=== PATIENT | female | born 1990 | race Caucasian/White ===

== ENCOUNTER 2022-05-17 08:18 | Outpatient (CLI) | payer MEDICAID, SELFPAY ==
[2022-05-18 19:18] LABS: Rapid Plasma Reagin (RPR) Non Reactive (Non Reactive)
== END 2022-05-17 08:19 | disposition home or self-care (01) ==
LOC: NFLDREF 08:20
PROVIDERS: Visit Provider Obstetrics & Gynecology
DX: O09.292 Supervision of pregnancy with other poor reproductive or obstetric history, second trimester (principal); Z11.3 Encounter for screening for infections with a predominantly sexual mode of transmission
CPT/HCPCS: 86592

== ENCOUNTER 2022-05-17 08:39 | Outpatient (CLI) | payer MEDICAID, SELFPAY ==
--- NOTE | 2022-05-17 08:45 | CRLHL7_ITS ---
For Patients: As a result of the Century Cures Act, medical imaging exams and procedure reports are released immediately into your electronic medical record. You may view this report before your referring provider. If you have questions, please contact your health care provider. INDICATION: Third trimester growth check. Maternal gestational diabetes. TECHNIQUE: Ultrasound OB pelvis transabdominal. Real-time norton-scale imaging of the fetus was performed as well as color Doppler and spectral Doppler analysis of the umbilical artery. COMPARISON: None. FINDINGS: Sonographic imaging demonstrates a single living intrauterine gestation. Fetus demonstrates a regular cardiac rate of 150 beats per minute. Fetus has a breech orientation. Amniotic fluid volume appears normal with the deepest pocket of 4 cm. Placenta is posterior. The following biometric measurements were obtained: Biparietal diameter: 28 weeks 3 days. Head circumference: 28 weeks 5 days. Abdominal circumference: 28 weeks 3 days. Femur length: 27 weeks 4 days. The composite ultrasound gestational age is calculated at 28 weeks 2 days with an estimated sonographic due date of August 07, 2022. The weight is estimated at 1188 grams, the 74th percentile. IMPRESSION.: Viable intrauterine . No abnormalities seen. Fetus is measuring at the 74th percentile by weight. Dictated by Jack Eubanks MD @ 05/23/2022 10:09:57 AM (Electronically Signed)
== END 2022-05-17 08:40 | disposition home or self-care (01) ==
LOC: US 08:40
PROVIDERS: Visit Provider Obstetrics & Gynecology
DX: O13.3 Gestational [pregnancy-induced] hypertension without significant proteinuria, third trimester (principal); Z3A.28 28 weeks gestation of pregnancy
CPT/HCPCS: 76816

== ENCOUNTER 2022-05-24 09:54 | Outpatient (CLI) | payer MEDICAID, SELFPAY ==
[2022-05-24 08:14] LABS: Glucose Fasting Check 100 mg/dl (60-115)
[2022-05-24 13:05] LABS: Glucose 1 Hour Gest 202 mg/dl (70-180)
[2022-05-24 13:17] LABS: Glucose GTT-Gestational 3 Hr 125 mg/dl (70-140)
--- OUTSIDE RECORDS SUMMARY | 2022-05-31 00:58 | XMS_ITS | Encounter Summary ---
:1990 Author Organization [facility] Address [address] [place] [address] Care Team Providers Name Role Phone Ben Arce M.D. Primary Care Provider Encounter Details Date Type Department Care Team Description 03/31/2022 Hospital Encounter Department of Cheikh Gautam Laboratory Medicine Minoo Garcia ([facility]) in [place], [place] [address] [place] [id number] Social History Tobacco Use Types Packs/Day Years Used Date Smoking Tobacco: Never Smokeless Tobacco: Never Alcohol Use Standard Drinks/Week Comments No 0 (1 standard drink = 0.6 oz pure alcoho l) Alcohol Habits Answer Date Recorded How often do you have a drink containing alcohol? Never 11/20/2021 How many drinks containing alcohol do you have on a typical Not asked day when you are drinking? How often do you have six or more drinks on one occasion? No t asked Comment: Not asked Social Isolation Answer Date Recorded In a typical week, how many times do you More than three annie es a week 11/20/2021 talk on the phone with family, friends, or neighbors? How often do you get together with friends Twice a week 11/20/2021 or relatives? How often do you attend islam or Never 2021 rastafari services? Do you belong to any clubs or No 11/20/2021 organizations such as islam groups, unions, fraternal or athletic groups, or school groups? How often do you attend meetings of the Never 11/20/2021 clubs or organizations you belong to? Are you now , , , Never 11/20/2021 , never or living with a partner? Physical Activity Answer Date Recorded On average, how many days per week do you engage in moderate to 5 days 11/20/2021 strenuous exercise (like walking fast, running, jogging, dancing, swimming, biking, or other activities that cause a light or heavy sweat)? On average, how many minutes do you engage in exercise at th is 60 min 11/20/2021 level? Stress Answer Date Recorded Do you feel stress - tense, restless, nervous, or To some ex tent 11/20/2021 anxious, or unable to sleep at night because your mind is troubled all the time - these days? Financial Resource Strain Answer Date Recorded How hard is it for you to pay for the very basics like Not julian dai hard 11/20/2021 food, housing, medical care, and heating? Intimate Partner Violence Answer Date Recorded Within the last year, have you been afraid of your partner o r No 11/20/2021 ex-partner? Within the last year, have you been humiliated or emotionall y No 11/20/2021 abused in other ways by your partner or ex-partner? Within the last year, have you been kicked, hit, slapped, or No 11/20/2021 otherwise physically hurt by your partner or ex-partner? Within the last year, have you been raped or forced to have any No 11/20/2021 kind of sexual activity by your partner or ex-partner? Housing Stability Answer Date Recorded In the last 12 months, was there a time when you were Patien t refused 11/20/2021 not able to pay the mortgage or rent on time? In the last 12 months, how many places have you lived? 1 11/20/2021 In the last 12 months, was there a time when you did No 11/20/[address]21 [address] to sleep or slept in a longterm (including now)? Education Answer Date Recorded What is the highest level of school you have completed or 12 th grade 05/17/2021 the highest degree you have received? 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 aspirin 81 mg chewable Chew 81 mg daily. 0 tablet breast pump device 1 each Cyclic PN - 1 each 0 2 03/01/2023 see admin instructions. famotidine (PEPCID) 40 mg Take 1 tablet (40 30 tablet 3 08/2022 tablet mg total) by mouth 2 (two) times a day. Take 1 tablet by 90 tablet 3 12/01/2021 vit27,calcium/iron/FA mouth daily. (multivitamin/mineral-pren atal) tablet calcium carbonate-vitamin Take 1 tablet by 0 D3 625 mg (250 mg mouth daily with calcium)-3.125 mcg (125 breakfast. Unit) per tablet documented as of this encounter Plan of Treatment Not on filedocumented as of this encounter Procedures Procedure Name Priority Date/Time Associated Comments Diagnosis PROTEIN/CREATININE Routine 03/31/2022 5:34 High Risk Result s for this RATIO, RANDOM, URINE PM CDT ([facility]) proc edure are in the results section. ALANINE AMINOTRANSFERASE Routine 03/31/2022 5:31 High Risk Results for this (ALT), S/P PM CDT (HCC) procedure ar e in the results section. ASPARTATE Routine 03/31/2022 5:31 High Risk Results for this AMINOTRANSFERASE (AST), PM CDT (HCC) p rocedure are in S/P the results section. CREATININE WITH EGFR, Routine 03/31/2022 5:31 High Risk Res ults for this S/P PM CDT (HCC) procedure ar e in the results section. documented in this encounter Results Protein/Creatinine Ratio, Random, Urine (03/31/2022 5:34 PM CDT) P athologist Signature Protein, Total, 14 mg/dL 03/31/2022 NPRG Random, U 6:01 PM CDT Creatinine, 216 16 - 326 03/31/2022 NPRG Random, U mg/dL 6:01 PM CDT Protein/Creatin 0.06 <0.18 mg/mg 03/31/2022 NPRG ine Ratio 6:01 PM CDT Specimen Anatomical Collection Method Collection Time Receive d Time (Source) Location / / Volume Laterality Urine (Urine, 03/31/2022 5:34 PM 03/31/20 5:34 Midstream) CDT PM CDT Cheikh Gautam M.D. LAB URINE ORDERABLES Performing Organization Address City/[facility]/ZIP Code Phon e Number [place] [address] [place], [place] [address] [facility] [place] [address] ALT (Alanine Aminotransferase) (03/31/2022 5:31 PM CDT) Patholo gist Method Time Signature Alanine 10 7 - 45 03/31/2022 NPRG Aminotransferase U/L 5:59 PM CDT (ALT), P Specimen Anatomical Collection Method Collection Time Receive d Time (Source) Location / / Volume Laterality Blood (Blood, 03/31/2022 5:31 PM 03/31/20 22 5:34 Venous) CDT PM CDT Cheikh Gautam M.D. LAB BLOOD ADD-ON Performing Organization Address City/[facility]/ZIP Code Phon e Number [place] [address] [place], [place] [address] [facility] [place] [address] AST (Aspartate Aminotransferase) (03/31/2022 5:31 PM CDT) [facility] Method Time Signature Aspartate 13 8 - 43 03/31/2022 NPRG Aminotransferase U/L 5:59 PM CDT (AST), P Specimen Anatomical Collection Method Collection Time Receive d Time (Source) Location / / Volume Laterality Blood (Blood, 03/31/2022 5:31 PM 03/31/20 22 5:34 Venous) CDT PM CDT Cheikh Gautam M.D. LAB BLOOD ADD-ON Performing Organization Address City/[facility]/ZIP Code Phon e Number [address] [address] [address] [facility] [place] [place] [address] (ABNORMAL) Creatinine with Estimated GFR (03/31/2022 5:31 PM CDT) P athologist Signature Creatinine, P 0.58 (L) 0.59 - 03/31/2022 NPRG 1.04 mg/dL 5:59 PM CDT eGFR-Black/Afr >90 >=60 03/31/2022 NPRG ican Slovenian mL/min/BSA 5:59 PM CDT Comment: ----ADDITIONAL INFORMATION---- Estimated GFR calculated using the 2009 CKD_EPI creatinine equation. eGFR Non-Black/ >90 >=60 mL/min/BSA 03/31/2022 5:59 PM CDT NPRG Comment: ----ADDITIONAL INFORMATION---- Estimated GFR calculated using the 2009 CKD_EPI creatinine equation. Specimen Anatomical Collection Method Collection Time Receive d Time (Source) Location / / Volume Laterality Blood (Blood, 03/31/2022 5:31 PM 03/31/20 5:34 Venous) CDT PM CDT Cheikh Gautam M.D. LAB BLOOD ADD-ON Performing Organization Address City/State/ZIP Code Phon e Number [facility] [address] [place], [place] [address] [facility] [place] [address] [facility] [address] [place] documented in this encounter Visit Diagnoses Diagnosis High Risk (HCC) documented in this encounter Additional Health Concerns Assessment Noted Time PHQ-9 Depression Total Score: 4 12/20/2021 10:52 AM CS T documented as of this encounter Care Teams Resource Program Teacher Relationship Specialty Start Date End Date Ben Arce M.D. PCP - General Family Medicine 01/13/[address] [place] [phone] documented as of this encounter
--- OUTSIDE RECORDS SUMMARY | 2022-05-31 00:58 | XMS_ITS | Encounter Summary ---
:1990 Author Organization [facility] Address [address] [place] [address] Care Team Providers Name Role Phone Ben Arce M.D. Primary Care Provider Reason for Referral Outpatient (Routine) - Authorized Specialty Diagnoses / Procedures Referred By Contact Refer red To Contact Diagnoses Pain Back Pain Neck Ben Arce M.D. External, Referring [address] [place] [address] Referral ID Status Reason Start Expiration Visits Visits Date Date Requested Authorized [id number] Authorized Patient 03/01/2022 03/01/2023 1 1 Preference Reason for Visit Reason Comments Outside Order Insurance Referral Encounter Details Date Type Department Care Team Description 03/01/2022 Clinical Communication Department of Ben Arce, Outs [facility] Order Family Medicine in [place] (Insurance Referral) [place] [address] [place] [address] [facility] [phone] [phone] Social History Tobacco Use Types Packs/Day Years [...] do you attend islam or Never 2021 synagogue services? Do you belong to any clubs or No 11/20/2021 organizations such as islam groups, unions, fraBALALIKEA or athletic groups, or school groups? How [...] pay for the very basics like Not v dai hard 11/20/2021 food, housing, medical care, [...] place to sleep or slept in a penitentiary (including now)? Education Answer Date Recorded What is the highest level of school you have completed or 12 th grade 05/17/2021 the highest degree you have received? 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 Also faxed [facility] restricted forms for OB care [facility]. Thank you, Jossie Referrals 03/02/22 Lore called from [facility] [phone]. This referral has been processed. 03/03/22sla. Telephone Encounter - Ben Arce M.D. - 03/01/2022 3:07 PM CDT Order signed. Telephone Encounter - Jossie Ramos - 03/01/2022 2:[address] Arce, ORDER/LAB/REFERRAL REQUEST: Name of test/referral/order requested: [facility]. Med [place] i [id number] Reason for request: Back and neck pain Date needed: 02/26/22 Order pended to this encounter, once signed we can submit the Restricted [facility] referral for insurance. Thank you, Jossie Referrals 03/01/22 documented in this encounter Plan of Treatment Not on filedocumented as of this encounter Visit Diagnoses Diagnosis Pain Back - Primary Pain Neck documented in this encounter Additional Health Concerns Assessment Noted Time PHQ-9 Depression Total Score: 4 12/20/2021 10:52 AM CS T documented as of this encounter Care Teams Frame Stripper And Crusher Relationship Specialty Start Date End Date Ben Arce M.D. PCP - General Family Medicine 01/13/[address] [place] [phone] documented as of this encounter
--- OUTSIDE RECORDS SUMMARY | 2022-05-31 00:58 | XMS_ITS | Encounter Summary ---
:1990 Author Organization [facility] Address [address] [place] [address] Care Team Providers Name Role Phone Ben Arce M.D. Primary Care Provider Reason for Visit Reason Comments Decreased Movement Pt noticed decrease in movement starting on 04/16/22 @ 1430 Vaginal Bleeding Pt expressed one episode of vaginal bleeding on 04/17/22 @ 1730, which she described as bright red about the size of a quarter. Auth/Cert Specialty Diagnoses / Procedures Referred By Contact Refer red To Contact Diagnoses Procedures Referral ID Status Reason Start Date Expiration Date Visits Requ ested Visits Authorized [id number] 1 1 Encounter Details Date Type Department Care Team Description 04/17/2022 Hospital Encounter [facility] Rylie Mcdowell, 23 Weeks Gestation [facility], [place] [id number] [address] [place], [place] [phone] [phone] (Work) [phone] Social History Tobacco Use Types Packs/Day Years [...] or relatives? How often do you attend catholic or Never 2021 sikhism services? Do you belong to any clubs or No 11/20/2021 organizations such as catholic groups, unions, fraternal or athletic groups, or [...] place to sleep or slept in a fpc (including now)? Education Answer Date Recorded What is the highest level of school you have completed or 12 th grade 05/17/2021 the highest degree you have received? 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 - 04/17/2022 8:50 PM CDT Pt is a at 23+0/7 weeks gestation who presented to OB c/o decreased movement, mild cramping, and an episode of vaginal bleeding. The decreased movement was noted to begin yesterday, and the cramping began this afternoon. Pt also verbalized one spot of bright red blood that was a little bigger than the size of a quarter this afternoon, with no further bleeding to follow. FHR was a persistent Category I tracing. No UTC's traced via [place]. RN palpated during one episode ofuterine cramping, as verbalized by the patient, which was not palpable. Pt denied any s/sx of a urinary tract infection. No trauma or significant events preceded the vaginal bleeding, including any recent intercourse. movements were audibly noted by RN on the monitor, in addition to the ptnoting movements during the assessment time. RN reviewed anatomy scan from March 27 to rule out an anterior placenta and low lying/placenta previa. VSS. Dr. Mcdowell called and informed of pt situation. She is comfortable with sending the pt home on the premise that she schedule an appointment with her provider early this week. Pt educated on s/sx that warrant evaluation, and she was reminded that our OB unit is always available for her to utilize should she need it. No further concerns or issues at this time. Pt discharged to home. documented in this encounter Plan of Treatment Not on filedocumented as of this encounter Visit Diagnoses Diagnosis 23 Weeks Gestation (HCC) documented in this encounter Additional Health Concerns Assessment Noted Time PHQ-9 Depression Total Score: 4 12/20/2021 10:52 AM CS T documented as of this encounter Care Teams Antique Jewelry Repairer Relationship Specialty Start Date End Date Ben Arce M.D. PCP - General Family Medicine 01/13/[address] [place] [phone] documented as of this encounter
--- OUTSIDE RECORDS SUMMARY | 2022-05-31 00:58 | XMS_ITS | Clinical Summary ---
:1990 Author Organization [facility] Address [address] [place] [address] Care Team Providers Name Role Phone Ben Arce M.D. Primary Care Provider Source Comments Patient records contain information from all sites at [facility]. For routine questions regarding patient records, call [phone] during business hours, M-F 8:00 AM - 5:00 PM Central Time. Record requests for emergency care only can be directed to [phone] at any time.[facility] Allergies Active Allergy Reactions Severity Noted Date Comments [place] Pollen Itching, Wheezing 04/17/2022 Medications Medication Sig Dispensed Refills Start Date End Date Status acetaminophen (TYLENOL) Take 1,000 mg 0 Active 500 mg tablet by mouth every 6 (six) hours as needed for pain. Take 1 tablet 90 tablet 3 12/01/2021 Activ e vit27,calcium/iron/FA by mouth daily. (multivitamin/mineral-p renatal) tablet calcium Take 1 tablet 0 Active carbonate-vitamin D3 by mouth daily 625 mg (250 mg with breakfast. calcium)-3.125 mcg (125 Unit) per tablet breast pump device 1 each Cyclic 1 each 0 03/01/20222022 Active PN - see admin instructions. famotidine (PEPCID) 40 Take 1 tablet 30 tablet 3 03/01/2022 Active mg tablet (40 mg total) by mouth 2 (two) times a day. aspirin 81 mg chewable Chew 81 mg 0 Active tablet daily. Active Problems Problem Noted Date Encounter For Supervision Of Normal Unspecif ied Trimester 12/20/2021 Overview: 31 y.o. dated by 6w US (not cons istent with approximate LMP). CARLOS 08/14/22. Prepregnancy BMI: 28. History: 1 early miscarriage, 1 induced delivery at 36 weeks due to preeclampsia (GDM that too) New OB Labs: Rh+/RI/other labs WNL/GCCT neg Early DM Screening: A1C ordered due to h x GDM Vaccinations: COVID complete but needs b ooster/Flu declines Manager Ob: Pap NIL w/ neg HPV 11/2021 Aneuploidy screening/Carrier Screening: declines Preeclampsia prevention: aspirin to star t at 12 weeks FAS: Normal, posterior placenta, EFW 92n d%ile 28 week labs: TDAP /Rhogam not indicated GBS Growth Ultrasounds: surveillance: Presentation (36 weeks): Del planning: PPBC: Problems: 1. Hx preeclampsia: on baby aspirin. Bas delia preE labs ordered 2. Hx GDM: Early A1C 5.2 3. Possible macrosomia: EFW 92nd%ile on FAS. Will plan on growth US in third trimester Note on 03/27 she told me she is transferr ing to [place] because it is closer. 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 Supervision Of Normal Pregnanc y Unspecified Trimester (HCC) 04/18/2022 Routine Obstetrics and Rylie Mcdowell 23 Weeks Gestation Gynecology Minoo ([facility]) (Primary Dx) 04/17/2022 Hospital Encounter Labor and Delivery Jeremias, Giya, 23 Weeks Gestation M.D. ([facility]) 03/31/2022 Hospital Encounter Laboratory Medicine Cheikh Gautam High Risk Minoo Garcia ([facility]) 03/27/2022 Routine Obstetrics and Cheikh Gautam High Ri sk ([facility]) (Primary Dx); Gynecology Minoo Garcia Encounter For S upervision Of Normal Unspecified Trimester ([facility]) 03/27/2022 Ancillary Procedure Obstetrics and Cheikh Gautamo unter For Gynecology Minoo Garcia Supervision Of Other Normal Unspecified Trimester ([facility]) 03/01/2022 Routine Obstetrics and Terrence Swenson Examination Test With Positive Result ([facility]) (Primary Dx); Gynecology Minoo Gutierrez Encounter For S upervision Of Normal Unspecified Trimester ([facility]) 03/01/2022 Clinical Communication Family Medicine Ben Arce Ou tside Order Minoo (Insurance Referral) 02/28/2022 Orders Only Obstetrics and Terrence Swenson Gynecology Minoo Gutierrez from Last 3 Months Immunizations Name Administration Dates Next Due DTP 02/03/1992, 08/05/1991, 03/18/1991, 1989, 1989, 1989 DTaP (Infanrix, [employer]) 02/03/1992, 08/05/1991, 03/18/1991 , 1989, 1989, 1989 HepB Pediatric/Adolescent 02/22/2001, 12/07/2000, 10/03/2000 HepB, Unspecified 02/22/2001, 12/07/2000, 10/03/2000 Influenza TIV (IM) 07/10/2012, 09/08/2003 Influenza, Seasonal, Injectable 07/10/2012 Influenza, Unspecified 12/16/2020 (Deferred: Patient Refused - pt states gets sick from flu vaccination), 09/08/2003 MMR 12/07/2000 Polio, Unspecified 02/03/1992, 02/03/1992, 03/18/1991, 03/18/1991, 1989, 1989, 1989, 1989, 1989, 1989 Td (Adult), adsorbed 10/03/2000 Tdap 09/03/2012 Family History Medical History Relation Name Comments Pancreatic cancer Aunt Depression Brother Alcohol abuse Father Heart failure Father Hypertension Father Rashes / Skin problems Maternal Grandfather Skin cancer Maternal Grandfather Diabetes Maternal Grandmother Pancreatic cancer Maternal Grandmother Arthritis Mother Depression Mother Hypertension Mother Rashes / Skin problems Mother Skin cancer Mother Thyroid disease Mother Alcohol abuse Paternal Grandmother Depression Sister 1 Depression Sister 2 Depression Sister 3 Asthma Son Johnnie Learning disabilities Son Johnnie Relation Name Status Comments Aunt Brother Father Maternal Grandfather Maternal Grandmother Mother Paternal Grandmother Sister 1 Sister 2 Sister 3 Son Johnnie Alive Social History Tobacco Use Types Packs/Day Years Used Date Smoking Tobacco: Never Smokeless Tobacco: Never Tobacco Cessation: Counseling Given: Yes Alcohol Use Standard Drinks/Week Comments No 0 [...] or relatives? How often do you attend denominational or Never 2021 nondenominational services? Do you belong to any clubs or No 11/20/2021 organizations such as denominational groups, unions, fraternal or athletic groups, or [...] to pay for the very basics like Nav lala hard 11/20/2021 food, housing, medical care, and [...] place to sleep or slept in a residential (including now)? Education Answer Date Recorded What is the highest level of school you have completed or 12 th grade 05/17/2021 the highest degree you have received? 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 Vital Signs Vital Sign Reading Time Taken Comments Blood Pressure 111/66 04/28/2022 12:25 PM CDT Pulse 87 04/28/2022 12:25 PM CDT Temperature 36.2 ??C (97.2 ??F) 04/28/2022 12:25 PM CDT Respiratory Rate 16 04/28/2022 11:08 AM CDT Oxygen Saturation 95% 04/28/2022 12:25 PM CDT Inhaled Oxygen Concentration - - Weight 72 kg (158 lb 12.8 oz) 04/18/2022 2:27 PM CDT Height 152.4 cm (5') 04/28/2022 10:11 AM CDT Body Mass Index 31.01 04/18/2022 2:27 PM CDT Plan of Treatment Health Maintenance Due Date Last Done Comments Hepatitis C Screening 1990 COVID-19 Vaccine (3 - 11/18/2021 06/18/2021, 05/18/2021 Booster for Pfizer series) Influenza Vaccine (#1) 2022 07/10/2012, 07/10/2012, 09/08/2003, Additional history exists DTaP,Tdap,and Td Vaccines 09/03/2022 09/03/2012, 10/03/2000 , (7 - Td or Tdap) 02/03/1992, Additional history exists Cervical Cancer Screening 11/24/2026 11/24/2021, 11/24/2021 , 09/23/2015 (Performed elsewhere) Hepatitis B Vaccines Completed 02/22/2001, 02/22/2001, 12/07/2000, Additional history exists Depression Screening Completed 12/20/2021 (Annual PHQ-2) Pneumococcal vaccine (0-64 Aged Out No lo nger eligible years) based on patient 's age to complete this topic Medical Devices Implanted Type Area Stamps Or Coins Salesperson Device Shelf Model / Identifier Expiration Serial / Date Lot Gynecologic Gynecologic Left: Other Other Arm Procedures Procedure Name Priority Date/Time Associated Comments Diagnosis URINALYSIS WITH Timed 04/28/2022 9:09 Results f or MICROSCOPIC AM CDT this procedure are in the results section. IFLU A, B, SARS COV-2, Routine 04/28/2022 8:48 Re sults for PCR, RAPID,V AM CDT this procedure are in the results section. PROTEIN/CREATININE Routine 03/31/2022 5:34 High Risk Result s for RATIO, RANDOM, URINE PM CDT (HCC) this procedure are in the results section. ALANINE Routine 03/31/2022 5:31 High Risk Results for AMINOTRANSFERASE PM CDT (HCC) this pro cedure (ALT), S/P are in the results section. ASPARTATE Routine 03/31/2022 5:31 High Risk Results for AMINOTRANSFERASE PM CDT (HCC) this pro cedure (AST), S/P are in the results section. CREATININE WITH EGFR, Routine 03/31/2022 5:31 High Risk Res ults for S/P PM CDT (HCC) this procedu re are in the results section. CHLAMYDIA/GONORRHOEAE Routine 03/27/2022 High Risk Result s for AMPLIFIED RNA 10:42 AM CDT (HCC) this proced ure are in the results section. US OB ANATOMY RAD - Routine 03/27/2022 Encounter For Results for MARTINS (most inpatients 10:28 AM CDT Supervision Of this proc edure and all Other Normal are in the outpatients) results Unspecified section. Trimester (HCC) from Last 3 Months Results (ABNORMAL) Urinalysis with Microscopic: Urine, Midstream (04/28/2022 9:09 AM CDT) [facility] Time Signature Source Urine, Urine, 04/28/2022 NPRG Midstream 11:21 AM CDT Clarity Clear Clear 04/28/2022 NPRG 11:36 AM CDT Color Yellow 04/28/2022 NPRG 11:36 AM CDT Comment: ----REFERENCE VALUE---- Colorless Yellow Ronda Blood Trace (A) Negative 04/28/2022 11:36 AM CDT NPRG Nitrite Negative Negative 04/28/2022 11:36 AM CDT NPRG Leukocyte Esterase Small (A) Negative 04/28/2022 11:36 AM C DT NPRG Protein Negative mg/dL 04/28/2022 11:36 AM CDT NPRG Comment: ----REFERENCE VALUE---- Negative Trace Glucose Negative Negative mg/dL 04/28/2022 11:36 AM CDT N PRG Ketones, QI(U) Trace (A) Negative mg/dL 04/28/2022 11:36 AM CDT NPRG Bilirubin Negative Negative 04/28/2022 11:36 AM CDT NPRG pH 7.0 5.0 - 8.0 04/28/2022 11:36 AM CDT NPRG Specific [place] 1.015 1.001 - 1.035 04/28/2022 11:36 AM CDT NPRG Urobilinogen 0.2 0.2 - 1.0 mg/dL 04/28/2022 11:36 AM C DT NPRG White Blood Cells 4-10 /hpf 04/28/2022 11:36 AM CD T NPRG Comment: ----REFERENCE VALUE---- Males: 0-3 Females: 0-10 Unknown: 0-10 Red Blood Cells Occ-2 0 - 2 /hpf 04/28/2022 11:36 AM CDT NPRG Dysmorphic Red Blood Cells <=25 <=25 % 04/28/2022 11 :36 AM CDT NPRG Squamous Cells 11-20 /hpf 04/28/2022 11:36 AM CDT N PRG Bacteria Present (A) None Seen 04/28/2022 11:36 AM CDT NPRG Specimen Anatomical Collection Method Collection Time Receive d Time (Source) Location / / Volume Laterality Urine (Urine, 04/28/2022 9:09 AM 04/28/20 22 Midstream) CDT 11:21 AM CDT Rylie Mcdowell M.D. LAB URINE ORDERABLES Performing Organization Address City/State/ZIP Code Phon e Number [address] [place] [address] [place] [address] [place] [address] [address] [facility] Influenza A/B, SARS CoV-2, PCR, Rapid, Varies (04/28/2022 8:48 AM CDT) [employer] Method Time Signature Influenza A, Negative Negative 04/28/2022 NPRG PCR, Rapid, V 9:26 AM CDT Influenza B, Negative Negative 04/28/2022 NPRG PCR, Rapid, V 9:26 AM CDT SARS CoV-2, Undetected Undetected 04/28/2022 NPRG PCR, Rapid, V 9:26 AM CDT Comment: ----ADDITIONAL INFORMATION---- This RT-PCR test was performed using the Carissa SARS-CoV-2 and Influenza A/B Reagent assay from [employer] which has received Emergency Use Authori zation(EUA) by the U.S. Food and Drug Administration . Fact sheets for this Emergency Use Autho rization (EUA) assay can be found at the following link s: For Healthcare Providers: https://www.fda.gov/media/633422/downloa d For Patients: https://www.fda.gov/media/582268/downloa d Infl A/B, SARS CoV-2, PCR, Source Swab, Nasopharynx 04/28/2022 9:02 AM CDT NPRG Specimen Anatomical Collection Method Collection Time Receive d Time (Source) Location / / Volume Laterality Varies 04/28/2022 8:48 AM 9:02 CDT AM CDT Rylie Mcdowell M.D. LAB MICROBIOLOGY - GENERAL O RDERABLES Performing Organization Address [facility] Phon e Number [address] LAB NPRG [place] [phone] [address] Protein/Creatinine Ratio, Random, Urine (03/31/2022 5:34 PM [...] Laterality Urine (Urine, 03/31/2022 5:34 PM 03/31/20 22 5:34 Midstream) CDT PM CDT Cheikh Gautam M.D. LAB URINE ORDERABLES Performing Organization Address [facility] Phon e Number [address] LAB NPRG [place] [phone] [address] ALT (Alanine Aminotransferase) (03/31/2022 5:31 PM CDT) Patholo gist Method Time Signature Alanine 10 7 - 45 03/31/2022 NPRG Aminotransferase U/L 5:59 PM CDT (ALT), P Specimen Anatomical Collection Method Collection Time Receive d Time (Source) Location / / Volume Laterality Blood (Blood, 03/31/2022 5:31 PM 03/31/20 22 5:34 Venous) CDT PM CDT Cheikh Gautam M.D. LAB BLOOD ADD-ON Performing Organization Address City/[facility]/ZIP Code Phon e Number [place] [address] [address] [place] [address] [place] [address] [place] [address] AST (Aspartate Aminotransferase) (03/31/2022 5:31 PM CDT) Patholo gist Method Time Signature Aspartate 13 8 - 43 03/31/2022 NPRG Aminotransferase U/L 5:59 PM CDT (AST), P Specimen Anatomical Collection Method Collection Time Receive d Time (Source) Location / / Volume Laterality Blood (Blood, 03/31/2022 5:31 PM 03/31/20 5:34 Venous) CDT PM CDT Authorizing Provider Result Espinoza Gautam M.D. LAB BLOOD ADD-ON Performing Organization Address [facility]/ZIP [facility] Phon e Number [address] LAB NPRG [place] [phone] [address] (ABNORMAL) Creatinine with Estimated GFR (03/31/2022 5:31 PM CDT) P athologist Signature Creatinine, P 0.58 (L) 0.59 - 03/31/2022 NPRG 1.04 mg/dL 5:59 PM CDT eGFR-Black/Afr >90 >=60 03/31/2022 NPRG ican [place] Irish mL/min/BSA 5:59 PM CDT Comment: ----ADDITIONAL INFORMATION---- [...] 03/31/20 22 5:34 Venous) CDT PM CDT Authorizing Provider Result Espinoza Gautam M.D. LAB BLOOD ADD-ON Performing Organization Address City/State/ZIP Code Phon e Number [facility]- [address] [facility] [place] [address] [address] [place] LAB NPRG [facility] [place] [address] [place] [address] [address] [facility] Chlamydia / Gonorrhoeae Amplified RNA (03/27/2022 10:42 AM CDT) [facility] gist Method Time Signature Source Urine, 03/27/2022 MKTO Urine, First 8:30 PM CDT Voided Chlamydia Negative Negative 03/27/2022 MKTO trachomatis 8:30 PM CDT amplified RNA Source Urine, 03/27/2022 MKTO Urine, First 8:30 PM CDT Voided Neisseria Negative Negative 03/27/2022 MKTO gonorrhoeae 8:30 PM CDT amplified RNA Specimen Anatomical Collection Method Collection Time Receive d Time (Source) Location / / Volume Laterality Varies (Urine, 03/27/2022 10:42 2:08 First Voided) AM CDT PM CDT Cheikh Gautam M.D. LAB MICROBIOLOGY - GENERAL O RDERABLES Performing Organization Address City/State/ZIP Code Phon e Number [facility]- [address] [place] [id number] [place] [address] [address] US OB Anatomy Martins (03/27/2022 10:28 AM CDT) Anatomical Region Laterality Modality Body, Ultrasound OB RST LOS, Ultrasound ARZ LOS N/A Ultrasound Specimen (Source) Anatomical Collection Method Collection Time Re ceived Time Location / / Volume Laterality 04/03/2022 2:22 PM CDT Impressions 04/03/2022 2:23 PM CDT Normal anatomic survey; gender is female. Narrative 04/03/2022 2:23 PM CDT EXAM: US OB ANATOMY MARTINS Physician: ??Dr. Gautam FINDINGS: Established Gestational age: 20 w 0 d, E DD: ??08/14/2022 Presentation: Variable Placenta Location: Posterior Placental Relationship to Internal Os: N ormal, no previa Amniotic Fluid: Subjectively normal in v olume Age by current ultrasound measurements: 21 w 0 d Estimated weight: 394 g. EFW %: ?? 92.5 % heart rate: 144 SURVEY: Motion: Normal. 4Chamber Heart: Normal. RVOT/LVOT: Normal. Cardiac Situs: Normal. Diaphragm: Normal. Stomach: Normal. Kidneys: Normal. Bladder: Normal. Spinal Column: Normal. Lateral Ventricles, Choroid: Normal. Cavum Septum: Normal. Cisterna Magna: Normal. Cerebellum: Normal. Nuchal Fold Thickness: Normal. Three Vessel Umbilical Cord: Normal. Cord Insertion: Normal. Placental Cord Insertion: Normal. 4 Extremities: Normal. Upper Lip and Facial Profile: Normal. 3 Vessel View (optional): Normal. Orbits (optional): Normal. BIOMETRIC PARAMETERS: ?? BPD: 21 w 0 d ??85.5 % HC: 20 w 3 d ??65.5 % AC: 21 w 2 d ??82.1 % FL: 21 w 0 d ??74.8 % HC/AC ratio: ??1.12 Uterus: No unexpected findings. Right ovary/adnexa: Ovary obscured, othe rwise clear. Left ovary/adnexa: Normal. Cervix: ??Normal at 3.5 cm Unless otherwise indicated, the daly rvey includes: Four-chamber heart, RVOT and LVOT, diaphragm, stomach (presence and situs), kidneys, b ladder, spine (cervical, thoracic, lumbar, and sacral spine), cerebral ventricles and choroid plexus, cavum septum pellucidum, cisterna magna, cerebellum, three vessel umbilical cord, umbilical c ord insertion, four extremities, upper lip, facial profile. Procedure Note Terrence Swenson M.D. - 04/03/2022Formatt ing of this note might be different from the original. EXAM: US OB ANATOMY MARTINS Physician: Dr. Gautam FINDINGS: Established Gestational age: 20 w 0 d, E Presentation: Variable Placenta Location: Posterior Placental Relationship to Internal Os: N ormal, no previa Amniotic Fluid: Subjectively normal in v olume Age by current ultrasound measurements: 21 w 0 d Estimated weight: 394 g. EFW %: 92 .5 % heart rate: 144 SURVEY: Motion: Normal. 4Chamber Heart: Normal. RVOT/LVOT: Normal. Cardiac Situs: Normal. Diaphragm: Normal. Stomach: Normal. Kidneys: Normal. Bladder: Normal. Spinal Column: Normal. Lateral Ventricles, Choroid: Normal. Cavum Septum: Normal. Cisterna Magna: Normal. Cerebellum: Normal. Nuchal Fold Thickness: Normal. Three Vessel Umbilical Cord: Normal. Cord Insertion: Normal. Placental Cord Insertion: Normal. 4 Extremities: Normal. Upper Lip and Facial Profile: Normal. 3 Vessel View (optional): Normal. Orbits (optional): Normal. BIOMETRIC PARAMETERS: BPD: 21 w 0 d 85.5 % HC: 20 w 3 d 65.5 % AC: 21 w 2 d 82.1 % FL: 21 w 0 d 74.8 % HC/AC ratio: 1.12 Uterus: No unexpected findings. Right ovary/adnexa: Ovary obscured, othe rwise clear. Left ovary/adnexa: Normal. Cervix: Normal at 3.5 cm Unless otherwise indicated, the daly rvey includes: Four-chamber heart, RVOT and LVOT, diaphragm, stomach (presence and situs), kidneys, b ladder, spine (cervical, thoracic, lumbar, and sacral spine), cerebral ventricles and choroid plexus, cavum septum pellucidum, cisterna magna, cerebellum, three vessel umbilical cord, umbilical c ord insertion, four extremities, upper lip, facial profile. IMPRESSION: Normal anatomic survey; gender is female. Cheikh Gautam M.D. 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 PCP - General Family Medicine 01/13/[address] [place] [id number]
--- OUTSIDE RECORDS SUMMARY | 2022-05-31 00:58 | XMS_ITS | Encounter Summary ---
:1990 Author Organization [facility] Address [address] [place] [address] Care Team Providers Name Role Phone Ben Arce M.D. Primary Care Provider Encounter Details Date Type Department Care Team Description 03/27/2022 Ancillary Procedure Department of Cheikh Gautam For Obstetrics and Minoo Garcia Supervision O f Other Gynecology in Normal [place], [place] Unspecified [address] Trimester (HCC) [place] [address] Social History Tobacco Use Types Packs/Day Years [...] do you attend catholic or Never 2021 protestant services? Do you belong to any clubs [...] place to sleep or slept in a usp (including now)? Education Answer Date Recorded What is the highest level of school you have completed or 12 th grade 05/17/2021 the highest degree you have received? 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 Unspecified Trimester (HCC) documented in this encounter Results US OB Anatomy Martins (03/27/2022 10:28 AM [...] Cheikh Gautam M.D. IMG OB US PROCEDURES documented in this encounter Visit Diagnoses Diagnosis Encounter For Supervision Of Other Stella echols Unspecified Trimester (HCC) documented in this encounter Additional Health Concerns Assessment Noted Time PHQ-9 Depression Total Score: 4 12/20/2021 10:52 AM CS T documented as of this encounter Care Teams Sawmill Hand Relationship Specialty Start Date End Date Ben Arce M.D. PCP - General Family Medicine 01/13/21 [address] [place] [address] documented as of this encounter
--- OUTSIDE RECORDS SUMMARY | 2022-05-31 00:58 | XMS_ITS | Encounter Summary ---
:[address] [facility] Address [address] [place] [address] Care Team Providers Name Role Phone Ben Arce M.D. Primary Care Provider Reason for Visit Reason Comments Nausea Vomiting During Auth/Cert Specialty Diagnoses / Procedures Referred By Contact Refer red To Contact Diagnoses . Procedures . Referral ID Status Reason Start Date Expiration Date Visits Requ ested Visits Authorized [id number] 1 1 Encounter Details Date Type Department Care Team Description 04/28/[address] [facility] Rylie Mcdowell Encounte r [facility] Praguolive Hennessy Supervision Of [facility], [place] [address] [facility] Normal Floor [place], [place] Unspecified [address] [place] [address] Trimester (HCC) [place], [place] [phone] (Work) [phone] Social History Tobacco Use Types Packs/Day Years [...] or relatives? How often do you attend confucianism or Never 2021 mu-ism services? Do you belong to any clubs or No 11/20/2021 organizations such as confucianism groups, unions, fraternal or athletic groups, or [...] place to sleep or slept in a [place] [facility] [place] (including now)? Education Answer Date Recorded What is the highest level of school you have completed or 12 th grade 05/17/2021 the highest degree you have received? 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 - 04/28/2022 12:52 PM CDT INPATIENT NURSING DISCHARGE SUMMARY Discharge Provider: Rylie Mcdowell M.D. Admission Date: 04/28/2022 Discharge Date: 04/28/2022 DISCHARGE DISPOSITION Home/Self Care CONDITION AT DISCHARGE stable TREATMENTS None DEVICES/EQUIPMENT None PROFESSIONAL SKILLED SERVICES None MODE OF DISCHARGE Ambulatory TRANSPORTATION Private Vehicle ACCOMPANIED BY Nurse to door of unit, ambulated to outside independently. All belongings sent home with patient. Discharge education provided, no further questions verbalizedat this time. Cintia Avila R.N. - 04/28/2022 12:38 PM CDT Pt arrived to unit shortly before 0800 with complaints of nausea and vomiting for the last 2 days, unable to keep anything down after eating or drinking. Pt also complained of headache which felt similar to her migraines in the past. No epigastric pain, no visual disturbances, no edema, VSS, FHR normal for gestational age. No other complaints. Pt is experiencing oliguria. Pt given 4 mg of IV zofran, 1L of fluids, covid swab, and tylenol for headache. Nausea and headache much improved. Able to eat part of a meal and keep down 360 ml of fluids throughout the morning and before leaving. Covid negative. Education provided on when to return, pt stated she has a clinic appointment at [facility] on Sunday with her normal doctor. Education provided on fluid intake and output and managing nausea and vomiting at home during . Provider ok'd pt for discharge. documented in this encounter Plan of Treatment Not on filedocumented as of this encounter Procedures Procedure Name Priority Date/Time Associated Comments Diagnosis URINALYSIS WITH Timed 04/28/2022 9:09 AM Result s for this MICROSCOPIC CDT procedure are i n the results section. IFLU A, B, SARS Routine 04/28/2022 8:48 AM Result s for this COV-2, PCR, RAPID,V CDT procedur e are in the results section. documented in this encounter Results (ABNORMAL) Urinalysis with Microscopic: Urine, Midstream (04/28/2022 9:09 AM CDT) Analysis Performed At Patho logist Time Signature Source Urine, Urine, 04/28/2022 [facility] [...] 8.0 04/28/2022 11:36 AM CDT NPR[facility] Specific [place] 1.015 1.001 - 1.035 04/28/2022 11:36 AM [...] Organization Address City/State/ZIP Code Phon e Number [place] [address] [address] [place], [place] [address] [facility] [place] [address] Influenza A/B, SARS CoV-2, PCR, Rapid, Varies (04/28/2022 8:48 AM CDT) [facility] Method Time Signature Influenza A, Negative Negative 04/28/2022 NPR[facility] PCR, Rapid, V 9:26 AM CDT Influenza B, Negative Negative 04/28/2022 NPR[facility] PCR, Rapid, V 9:26 AM CDT SARS CoV-2, Undetected Undetected 04/28/2022 NPR[facility] PCR, Rapid, V 9:26 AM CDT Comment: ----ADDITIONAL INFORMATION---- This RT-PCR test was performed using the Carissa SARS-CoV-2 and Influenza A/B Reagent assay from [employer], which has received Emergency Use Authori zation(EUA) by the U.S. Food and Drug Administration . Fact sheets for this Emergency Use Autho rization (EUA) assay can be found at the following link s: For Healthcare Providers: https://www.fda.gov/media/766530/downloa d For Patients: https://www.fda.gov/media/595562/downloa d Infl A/B, SARS CoV-2, PCR, Source Swab, Nasopharynx 04/28/2022 9:02 AM CDT NPR[facility] Specimen Anatomical Collection Method Collection Time Receive d Time (Source) Location / / Volume Laterality Varies 04/28/2022 8:48 AM 9:02 CDT AM CDT Rylie Mcdowell M.D. LAB MICROBIOLOGY - GENERAL O RDERABLES Performing Organization Address City/State/ZIP Code Phon e Number [address] [address] [facility] [place] [address] documented in this encounter Visit Diagnoses Diagnosis Encounter For Supervision Of Normal Preg roberta Unspecified Trimester (HCC) documented in this encounter Administered Medications Inactive Administered Medications - up to 3 most recent administrations Medication Order MAR Action Action Date Dose Rate Site acetaminophen tablet 1,000 mg Given 04/28/2022 10:11 AM CDT 1,00 0 mg (TYLENOL) 1,000 mg, oral, Once, On Sun04/28/22 at 1000, For 1 dose lactated Ringer's bolus 1,000 mL Rate Changed 04/28/2022 11:12 AM CDT 500 mL/hr 1,000 mL, intravenous, at 250 mL/hr, Administer over 4 Hours, Once, On Sun04/28/22 at 0830, For 1 dose New Bag 04/28/2022 8:35 AM CDT 1,000 mL 250 mL/hr ondansetron (PF) injection 4 mg (ZOFRAN) Given 04/28/2022 8:30 AM CDT 4 mg 4 mg, intravenous, Once, On Sun04/28/22 at 0815, For 1 dose documented in this encounter Active and Recently Administered Medications Times are shown in CDT. Scheduled Medication Order 04/26/2022 04/27/2022 04/28/2022 acetaminophen tablet 1,000 mg (TYLENOL) (COMPLETED) 1011 (Given - Provider: Cintia Avila R.N.) 1,000 mg, oral, Once, On Sun04/28/22 at 1000, For 1 dose lactated Ringer's bolus 1,000 mL (COMPLETED) 0835 (New Bag - Provider: Cintia Avila R.N.)1112 (Rate Changed - Provider: Cintia Avila R.N. - Comment: provider verbalized to raise rate to 500 ml/hr)1217 (Stopped - Provider: Cintia Avila R.N. - Comment: infusion completed.) 1,000 mL, intravenous, at 250 mL/hr, Adm inister over 4 Hours, Once, On Sun04/28/22 at 0830, For 1 dose ondansetron (PF) injection 4 mg (ZOFRAN) (COMPLETED) 0830 (Given - Provider: Cintia Avila R.N.) 4 mg, intravenous, Once, On Sun04/28/22 at 0815, For 1 dose documented in this encounter Additional Health Concerns Infection Onset Date Last Indicated Resolved Time COVID19 Pending 04/28/2022 04/28/2022 04/28/2022 9:02 AM CDT COVID19 Pending 04/28/2022 04/28/2022 04/28/2022 9:26 AM CDT Assessment Noted Time PHQ-9 Depression Total Score: 4 12/20/2021 10:52 AM CS T documented as of this encounter Care Teams Filler Shredding Machine Loader Relationship Specialty Start Date End Date Ben Arce M.D. PCP - General Family Medicine 01/13/[address] [place] [phone] documented as of this encounter
--- OUTSIDE RECORDS SUMMARY | 2022-05-31 00:58 | XMS_ITS | Encounter Summary ---
:1990 Author Organization [facility] Address [address] [place] [address] Care Team Providers Name Role Phone Ben Arce M.D. Primary Care Provider Reason for Visit Reason Comments Routine Visit Patient seen in L&D yesterda y for decreased movement and spotting Outpatient (Routine) - Authorized Specialty Diagnoses / Procedures Referred By Contact Refer red To Contact Obstetrics and Cheikh Gautam [facility] Gynecology M.DMaribell Referral ID Status Reason Start Date Expiration Date Visits V isits Requested Authorized [id number] Authorized 12/20/2021 12/20/2022 15 15 Encounter Details Date Type Department Care Team Description 04/18/2022 Routine Department of Rylie Mcdowell, 23 Weeks Gestation Obstetrics and M.D. ([facility]) Gynecology in [address] (Primary Dx) [place] [address] [address] [facility] [address] [place], [place] [phone] [phone] (Work) [phone] Social History Tobacco Use Types Packs/Day Years [...] or relatives? How often do you attend shinto or Never 2021 voodoo services? Do you belong to any clubs or No 11/20/2021 organizations such as shinto groups, unions, fraternal or athletic groups, or [...] place to sleep or slept in a half-way (including now)? Education Answer Date Recorded What is the highest level of school you have completed or 12 th grade 05/17/2021 the highest degree you have received? 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 - 04/18/2022 2:45 PM CDT Lulu is 24w1d gestation, here for a routine OB visit. The following items were addressed today: Fu from L&D visit yesterday - had irregular cramps and saw a spot of dark red blood.- was observed - toco and EFM unremarkable. No complaints today FU with her OB in 1 week Encouraged to call if any questions prior to next visit. documented in this encounter Plan of Treatment Not on filedocumented as of this encounter Visit Diagnoses Diagnosis 23 Weeks Gestation (HCC) - Prim prosper documented in this encounter Additional Health Concerns Assessment Noted Time PHQ-9 Depression Total Score: 4 12/20/2021 10:52 AM CS T documented as of this encounter Care Teams Rn Sexual Assault Relationship Specialty Start Date End Date Ben Arce M.D. PCP - General Family Medicine 01/13/[address] [facility] [place] [phone] documented as of this encounter
--- OUTSIDE RECORDS SUMMARY | 2022-05-31 00:58 | XMS_ITS | Encounter Summary ---
:1990 Author Organization [facility] Address [address] [place] [address] Care Team Providers Name Role Phone Ben Arce M.D. Primary Care Provider Reason for Visit Reason Comments Routine Visit 20weeks Outpatient (Routine) - Authorized Specialty Diagnoses / Procedures Referred By Contact Refer red To Contact Obstetrics and Cheikh Gautam [facility] william Gynecology Minoo Referral ID Status Reason Start Date Expiration Date Visits V isits Requested Authorized [id number] Authorized 12/20/2021 12/20/2022 15 15 Encounter Details Date Type Department Care Team Description 03/27/2022 Routine Department of Cheikh Gautam k (HCC) (Primary Dx); Obstetrics and Minoo Garcia Encounter For Supervision Of Normal Unspecified Trimester (HCC) Gynecology in [place], [place] [address] [place] [address] Social History Tobacco Use Types Packs/Day Years [...] or relatives? How often do you attend buddhist or Never 2021 baptism services? 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 - 03/27/2022 10:45 AM CDT Routine OB Visit SUBJECTIVE HISTORY OF PRESENT ILLNESS Patient is a 31 y.o.-year-old at 20w0d here for routine OB visit. She is doing well today. She denies any vaginal bleeding, loss of fluid, or contractions. She notes good movement. REVIEW OF SYSTEMS Obtained and is negative other than stated in the HPI. OBJECTIVE PHYSICAL EXAMINATION Vitals: 03/27/22 1030 BP: 133/87 General: No acute distress alert and oriented. Abdomen: Soft, gravid, nontender to palpation. Dop tones: 144 BMP. Extremities: Warm, nontender, no edema. ASSESSMENT / PLAN 31 y.o.-year-old at 20w0d here for routine OB visit. She is doing well. THIS VISIT: -FWB: + movement, dop tones and fundal height appropriate -FAS normal today -Gonorhrea/chlamydia urine today -Patient is transferring to [place] because it is closer -Problem list updated (see below) RTC: 4 weeks or sooner as needed Cheikh Gautam MD Problem List Respiratory 1. Rhinitis Allergic Circulatory 2. Thrombosis Superficial Vein Lower Extremity Left Overview Lesser saphaneous vein Digestive 3. Deficiency Vitamin D Overview Overview: 28.3 Musculoskeletal 4. Tendonitis Elbow 5. Tendonitis Other 6. History Of Falling 7. Encounter For Supervision Of Normal Unspecified Trimester (HCC) Overview 31 y.o. dated by 6w US (not consistent with approximate LMP). CARLOS 08/14/22. Prepregnancy BMI: 28. History: 1 early miscarriage, 1 induced delivery at 36 weeks due to preeclampsia (GDM thatpregnancy too) New OB Labs: Rh+/RI/other labs WNL/GCCT pending 03/27 Early DM Screening: A1C ordered due to hx GDM Vaccinations: COVID complete but needs booster/Flu declines Clinical Case Manager: Pap NIL w/ neg HPV 11/2021 Aneuploidy screening/Carrier Screening: declines Preeclampsia prevention: aspirin to start at 12 weeks FAS: Normal, posterior placenta, EFW 92nd%ile 28 week labs: TDAP /Rhogam not indicated GBS Growth Ultrasounds: surveillance: Presentation (36 weeks): Del planning: PPBC: Problems: 1. Hx preeclampsia: on baby aspirin. Baseline preE labs ordered 2. Hx GDM: Early A1C 5.2 3. Possible macrosomia: EFW 92nd%ile on FAS. Will plan on growth US in third trimester Note on 03/27 she told me she is transferring to [place] because it is closer. documented in this encounter Plan of Treatment Not on filedocumented as of this encounter Procedures Procedure Name Priority Date/Time Associated Diagnosis Comme nts CHLAMYDIA/GONORRHOE Routine 03/27/2022 10:42 AM High Risk Preg roberta Results for this AE AMPLIFIED RNA CDT ([facility]) procedure a re in the results section. documented in this [...] M.D. LAB URINE ORDERABLES Performing Organization Address City/[facility]/ZIP Code Phon e Number [place] [address] [address] [place], [place] [address] [place] NPR[place] [phone] ALT (Alanine Aminotransferase) (03/31/2022 5:31 PM CDT) Patholo gist Method Time Signature Alanine 10 7 - 45 03/31/2022 NPR[facility] Aminotransferase U/L 5:59 PM CDT (ALT), P Specimen Anatomical Collection Method Collection Time Receive d Time (Source) Location / / Volume Laterality Blood (Blood, 03/31/2022 5:31 PM 03/31/20 5:34 Venous) CDT PM CDT Cheikh Gautam M.D. LAB BLOOD ADD-ON Performing Organization Address City/[facility] Phon e Number [address] [address] [place] [facility] [place] [phone] AST (Aspartate Aminotransferase) (03/31/2022 5:31 PM CDT) [facility] Method Time Signature Aspartate 13 8 - 43 03/31/2022 [facility] Aminotransferase U/L 5:59 PM CDT (AST), P Specimen Anatomical Collection Method Collection Time Receive d Time (Source) Location / / Volume Laterality Blood (Blood, 03/31/2022 5:31 PM 03/31/20 22 5:34 Venous) CDT PM CDT Cheikh Gautam M.D. LAB BLOOD ADD-ON Performing Organization Address City/[facility]/ZIP Code Phon e Number [place] [address] [address] [place], [place] [address] [place] [facility] [place] [phone] [address] (ABNORMAL) Creatinine with Estimated GFR (03/31/2022 5:31 PM CDT) P athologist Signature Creatinine, P 0.58 (L) 0.59 - 03/31/2022 NPR[facility] 1.04 mg/dL 5:59 PM CDT eGFR-Black/Afr >90 >=60 03/31/2022 NPR[facility] ican Danish mL/min/BSA 5:59 PM CDT Comment: ----ADDITIONAL INFORMATION---- [...] M.D. LAB BLOOD ADD-ON Performing Organization Address City/[facility] Phon e Number [facility]- [address] [place] [address] [place] [address] [place] [address] Chlamydia / Gonorrhoeae Amplified RNA (03/27/2022 10:42 AM CDT) Patholo gist Method Time Signature Source Urine, 03/27/2022 [...] - GENERAL O RDERABLES Performing Organization Address City/[facility] Code Phon e Number [facility]- [address] [place] [address] [place] [address] System in [place] [address] [facility] documented in this encounter Visit Diagnoses Diagnosis High Risk (HCC) - Primary Encounter For Supervision Of Normal Preg roberta Unspecified Trimester (HCC) documented in this encounter Additional Health Concerns Assessment Noted Time PHQ-9 Depression Total Score: 4 12/20/2021 10:52 AM CS T documented as of this encounter Care Teams Tree Wrapper Relationship Specialty Start Date End Date Ben Arce M.D. PCP - General Family Medicine 01/13/[address] [place] [phone] documented as of this encounter
--- OUTSIDE RECORDS SUMMARY | 2022-05-31 00:59 | XMS_ITS | Encounter Summary ---
:1990 Author Organization [facility] Address [address] [place] [address] Care Team Providers Name Role Phone Ben Arce M.D. Primary Care Provider Encounter Details Date Type Department Care Team Description 11/28/2021 Hospital Encounter Department of Erika Jones Laboratory Laboratory Medicine CJ HammerN, Results in [place], C.N.PMaribell, M.S.N. [place] [address] [place] [phone] Social History Tobacco Use Types Packs/Day Years [...] or relatives? How often do you attend adventist or Never 2021 mormonism services? Do you belong to any clubs or No 11/20/2021 organizations such as adventist groups, unions, fraternal or athletic groups, or [...] place to sleep or slept in a senior care (including now)? Education Answer Date Recorded What is the highest level of school you have completed or 12 th grade 05/17/2021 the highest degree you have received? 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 amoxicillin-pot Take 1 tablet by 20 tablet 0 11/08/202110/2021 clavulanate (AUGMENTIN) mouth 2 (two) times a 875-125 mg per day. tabletIndications: Sinusitis cetirizine (ZyrTEC) 10 TAKE 1 TABLET(10 MG) 30 tablet 1 01/202112/20/2021 mg tabletIndications: BY MOUTH DAILY Rhinitis Allergic NEEDED FOR ALLERGIES etonogestreL (NEXPLANON) 1 each by implant 0 12/2112/20/2021 68 mg subdermal implant route continuously. fluticasone propionate Administer 2 sprays 0 12/20/2021 (FLONASE) 50 into each nostril mcg/actuation nasal daily. spray ibuprofen (ADVIL,MOTRIN) Take 600 mg by mouth 0 12/20/2021 600 mg tablet every 6 (six) hours as needed for pain. metroNIDAZOLE (FLAGYL) Take 1 tablet (500 mg 14 tablet 0 12/20/2021 500 mg tablet total) by mouth 2 (two) times a day. naproxen (NAPROSYN) 500 Take 1 tablet (500 mg 60 tablet 0 0 03/17/2021 12/20/2021 mg tabletIndications: total) by mouth 2 Pain Elbow Left (two) times a day as needed for pain (pain). documented as of this encounter Plan of Treatment Not on filedocumented as of this encounter Procedures Procedure Name Priority Date/Time Associated Comments Diagnosis HUMAN CHORIONIC Routine 11/28/2021 4:00 PM Abnormal Laboratory Results for this GONADOTROPIN (HCG), LINOLEUM MECHANIC Results procedur e are in ROBERTA, the results section. documented in this encounter Results (ABNORMAL) hCG (Human Chorionic Gonadotropin), Quantitative, (11/28/2021 4:00 PM LINOLEUM MECHANIC) P athologist Signature HCG, 94 (H) <5 IU/L 11/28/2021 NPR[facility] Quantitative, 7:47 PM LINOLEUM MECHANIC , P Comment: Biotin has been identified by the meir toro as a potential interfering substance. ??Higher concentr ations of biotin may be found in multivitamins, hair/nail supple ments, and workout supplements. ??If the result does not ma tch clinical observations, repeat testing after patient refrains fr om the use of supplements for at least 12 hours. Specimen Anatomical Collection Method Collection Time Receive d Time (Source) Location / / Volume Laterality Blood (Blood, 11/28/2021 4:00 PM 11/28/19 6:56 Venous) LINOLEUM MECHANIC PM LINOLEUM MECHANIC Erika Jones APRN, C.N.P., M.S.N. LAB BLOOD ADD-ON Performing Organization Address City/State/ZIP Code Phon e Number [facility]- [address] [place], [place] [address] [place] [address] [place] [address] [address] [facility] documented in this encounter Visit Diagnoses Diagnosis Abnormal Laboratory Results documented in this encounter Care Teams Ice Sculptor Relationship Specialty Start Date End Date Ben Arce M.D. PCP - General Family Medicine 01/13/[address] [place] [phone] documented as of this encounter
--- OUTSIDE RECORDS SUMMARY | 2022-05-31 00:59 | XMS_ITS | Encounter Summary ---
:1990 Author Organization [facility] Address [address] [place] [address] Care Team Providers Name Role Phone Ben Arce M.D. Primary Care Provider Reason for Visit Reason Comments Routine Visit 16 2/7 wk ob check pelvic/lo wer back pain 7/10 pain scale, needs referral to chiropract or Outpatient (Routine) - Authorized Specialty Diagnoses / Procedures Referred By Contact Refer red To Contact Obstetrics and Cheikh Gautam [facility] william Gynecology M.DMaribell Referral ID Status Reason Start Date Expiration Date Visits V isits Requested Authorized [id number] Authorized 12/20/2021 12/20/2022 15 15 Encounter Details Date Type Department Care Team Description 03/01/2022 Routine Department of Terrence Swenson Pregnan cy Examination Test With Positive Result (HCC) (Primary Dx); Obstetrics and M.D. Encounter For Supervision Of Normal Preg roberta Unspecified Trimester (HCC) Gynecology in [address], [place] [phone] [place], [place] [phone] (Work) [phone] Social History Tobacco Use Types Packs/Day Years [...] or relatives? How often do you attend zoroastrianism or Never 2021 orthodox services? Do you belong to any clubs or No 11/20/2021 organizations such as zoroastrianism groups, unions, fraTerascala or athletic groups, or school groups? How [...] place to sleep or slept in a skilled nursing (including now)? Education Answer Date Recorded What is the highest level of school you have completed or 12 th grade 05/17/2021 the highest degree you have received? 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 - 03/01/2022 9:15 AM CDT Images from the original note were not included. SUBJECTIVE CHIEF COMPLAINT / REASON FOR VISIT care, second trimester. HISTORY OF PRESENT ILLNESS Lulu is a pleasant 31 y.o. patient who presents for a check in the second trimester. Estimated Date of Delivery: 08/14/22 Based on this, her gestational age today is 16w2d. She has heartburn and back pain. Otherwise, no unusual complaints today and is not experiencing severe hyperemesis nor vaginal bleeding. She is able to tolerate normal PO intake at this stage. CURRENT MEDICATIONS Have been reviewed and are current in the EMR as of today's date. ALLERGIES Have been reviewed and are current in the EMR as of today's date. The patient's established CARLOS, documentation of prior obstetric history, laboratory information, andsummary of medical record have been reviewed today. SOCIAL HISTORY Social History Socioeconomic History ??? Marital status: Single Spouse name: Not on file ??? Number of children: 1 ??? Years of education: Not on file ??? Highest education level: 12th grade Occupational History ??? Not on file Tobacco Use ??? Smoking status: Never Smoker ??? Smokeless tobacco: Never Used Vaping Use ??? Vaping Use: never used Substance and Sexual Activity ??? Alcohol use: No ??? Drug use: No ??? Sexual activity: Not Currently Other Topics Concern ??? Not on file Social History Narrative ??? Not on file Social Determinants of Health Financial Resource Strain: Low Risk ??? Difficulty of Paying Living Expenses: Not very hard Food Insecurity: Unknown ??? Worried About Running Out of Food in the Last Year: Patient refused ??? Ran Out of Food in the Last Year: Patient refused Transportation Needs: Unknown ??? Lack of Transportation (Medical): Patient refused ??? Lack of Transportation (Non-Medical): Patient refused Physical Activity: Sufficiently Active ??? Days of Exercise per Week: 5 days ??? Minutes of Exercise per Session: 60 min Stress: Stress Concern Present ??? Feeling of Stress : To some extent Social Connections: Socially Isolated ??? Frequency of Communication with Friends and Family: More than three times a week ??? Frequency of Social Gatherings with Friends and Family: Twice a week ??? Attends Hinduism Services: Never ??? Active Member of Clubs or Organizations: No ??? Attends Club or Organization Meetings: Never ??? Marital Status: Never Intimate Partner Violence: Not At Risk ??? Fear of Current or Ex-Partner: No ??? Emotionally Abused: No ??? Physically Abused: No ??? Sexually Abused: No Housing Stability: Unknown ??? Unable to Pay for Housing in the Last Year: Patient refused ??? Number of Places Lived in the Last Year: 1 ??? Unstable Housing in the Last Year: No OB History 3 Para 1 Term 1 AB 1 Living 1 SAB 1 IAB Ectopic Molar Multiple Live Births 1 OBJECTIVE PHYSICAL EXAMINATION VITAL SIGNS BP 128/80 Wt 68.5 kg LMP 10/29/2021 (Approximate) BMI 29.49 kg/m?? General: Well nourished, well developed female in no acute distress. Weight gain is documented in the EMR today. heart tones are in the normal range by doppler interrogation. OB labs reviewed today. ASSESSMENT / PLAN There are no diagnoses linked to this encounter. Second trimester . Recommendations: A follow up visit is scheduled in four weeks, and a ultrasound is scheduled at that time as well to evaluate anatomy. Routine early ultrasound is beneficial in leading to early detection of clinically unsuspected malformations (including aneuploidies). The safety of obstetrical ultrasound is well established. For women who choose to undergo ultrasound screening for structural anomalies, this is optimally performed in the second trimester (after 20 weeks EGA is standard at our facility). Now that she is beyond the first trimester milestone, nausea of early is usually lessened and goals for appropriate weight gain can be a realistic focus now. GUIDELINES FOR TOTAL WEIGHT GAIN IN : Underweight (BMI<18.5); gain 28-40 lbs (12.7 to 18.1 kg) in . Normal weight (BMI 18.5 - 25); gain 25-35 lbs (11.3 to 15.9 kg) Overweight (BMI 25 - 30); gain 15-25 lbs (6.8 to 11.3 kg) Obese (BMI>30); gain 11-20 lbs (5.0 to 9.1 kg) DIAGRAM OF WEIGHT DISTRIBUTION AT END OF : Electronically signed by: Terrence Swenson M.D. 03/01/22 9:25 AM CDT documented in this encounter Plan of Treatment Not on filedocumented as of this encounter Visit Diagnoses Diagnosis Examination Test With Positive Result (HCC) - Primary Encounter For Supervision Of Normal Preg roberta Unspecified Trimester (HCC) documented in this encounter Additional Health Concerns Assessment Noted Time PHQ-9 Depression Total Score: 4 12/20/2021 10:52 AM CS T documented as of this encounter Care Teams Online Trader Relationship Specialty Start Date End Date Ben Arce M.D. PCP - General Family Medicine 01/13/[address] [place] [phone] documented as of this encounter
--- OUTSIDE RECORDS SUMMARY | 2022-05-31 00:59 | XMS_ITS | Encounter Summary ---
:1990 Author Organization [facility] Address [address] [place] [address] Care Team Providers Name Role Phone Ben Arce M.D. Primary Care Provider Encounter Details Date Type Department Care Team Description 12/20/2021 Hospital Encounter Department of Cheikh Gautam Laboratory Medicine Minoo Garcia Supervis ion Of Other in [facility] Unspecified [address] [place] [address] Social History Tobacco Use Types Packs/Day Years [...] or relatives? How often do you attend gnosticism or Never 2021 anabaptist services? Do you belong to any clubs or No 11/20/2021 organizations such as gnosticism groups, unions, fraternal or athletic groups, or [...] place to sleep or slept in a group home (including now)? Education Answer Date Recorded What is the highest level of school you have completed or 12 th grade 05/17/2021 the highest degree you have received? Sex Assigned at Date Recorded Female 12/02/2021 5:19 PM SHIPPING ROOM SUPERVISOR documented as of this encounter Medications at Time of Discharge Medication Sig Dispensed Refills Start Date End Date acetaminophen (TYLENOL) 500 Take 1,000 mg by 0 mg tablet mouth every 6 (six) hours as needed for pain. Take 1 tablet by 90 tablet 3 12/01/2021 vit27,calcium/iron/FA mouth daily. (multivitamin/mineral-prena ginny) tablet documented as of this encounter Plan of Treatment Not on filedocumented as of this encounter Procedures Procedure Name Priority Date/Time Associated Diagnosis Comme nts HCV AB SCRN Routine 12/20/2021 11:34 AM Encounter For Results for this , S SHIPPING ROOM SUPERVISOR Supervision Of Other procedu re are in Normal the results Unspecified section. Trimester HIV-1/-2 AG AND AB Routine 12/20/2021 11:34 AM Encounter For R esults for this SCRN, SHIPPING ROOM SUPERVISOR Supervision Of Other proce dure are in PLASMA Normal the results Unspecified section. Trimester SYPHILIS TOTAL AB Routine 12/20/2021 11:34 AM Encounter For Re sults for this W/ REFLEX S SHIPPING ROOM SUPERVISOR Supervision Of Other procedu re are in Normal the results Unspecified section. Trimester HBS ANTIGEN Routine 12/20/2021 11:34 AM Encounter For Results for this , S SHIPPING ROOM SUPERVISOR Supervision Of Other procedu re are in Normal the results Unspecified section. Trimester ABORH, RBC Routine 12/20/2021 11:34 AM Encounter For Results for this SHIPPING ROOM SUPERVISOR Supervision Of Other procedu re are in Normal the results Unspecified section. Trimester RUBELLA ANTIBODIES, Routine 12/20/2021 11:34 AM Encounter For Results for this IGG SHIPPING ROOM SUPERVISOR Supervision Of Other procedu re are in Normal the results Unspecified section. Trimester CBC WITHOUT Routine 12/20/2021 11:34 AM Encounter For Results for this DIFFERENTIAL, B SHIPPING ROOM SUPERVISOR Supervision Of Other proc edure are in Normal the results Unspecified section. Trimester ANTIBODY SCREEN, B Routine 12/20/2021 11:34 AM Encounter For R esults for this SHIPPING ROOM SUPERVISOR Supervision Of Other procedu re are in Normal the results Unspecified section. Trimester documented in this encounter Results Hepatitis C Virus Antibody Screen (12/20/2021 11:34 AM SHIPPING ROOM SUPERVISOR) P athologist Signature HCV Ab Scrn Negative Negative 12/21/2021 [facility] , S 8:10 AM SHIPPING ROOM SUPERVISOR Comment: Hpxnvu-sb-lqzsqw ratio is <1.00 . Specimen Anatomical Collection Method Collection Time Receive d Time (Source) Location / / Volume Laterality Blood (Blood, 12/20/2021 11:34 12/21/2021 6:40 Venous) AM SHIPPING ROOM SUPERVISOR AM SHIPPING ROOM SUPERVISOR Cheikh Gautam M.D. LAB MICROBIOLOGY - BLOOD ORD ERABLES Performing Organization Address City/[facility]/ZIP Code Phon e Number [facility] [address] [place] [address] [place] [address] [place] [address] Laboratory Medicine and Pathology [address] [place] Syphilis Total Ab w/ Reflex, Serum (12/20/2021 11:34 AM SHIPPING ROOM SUPERVISOR) Patholo gist Method Time Signature Syphilis Nonreactive Nonreactive 12/21/2021 [facility] Total Ab w/ 11:40 AM SHIPPING ROOM SUPERVISOR Reflex Comment: No serologic evidence of infection with T. pallidum (syphilis). ??Repeat testing may be cons idered in patients with suspected acute or primary syphilis in 2-4 weeks. For additional information on interpreta tion of the syphilis reverse algorithm and resul ts, see: [email or web address] df Specimen Anatomical Collection Method Collection Time Receive d Time (Source) Location / / Volume Laterality Blood (Blood, 12/20/2021 11:34 12/20/2021 6:27 Venous) AM SHIPPING ROOM SUPERVISOR PM SHIPPING ROOM SUPERVISOR Cheikh Gautam M.D. LAB BLOOD ADD-ON Performing Organization Address City/[facility] Phon e Number [address] [phone] [place] [address] [address] Rubella Antibodies, IgG (12/20/2021 11:34 AM SHIPPING ROOM SUPERVISOR) P athologist Signature Rubella Ab, Positive 12/21/2021 [facility] IgG, S 11:40 AM SHIPPING ROOM SUPERVISOR Comment: Results suggest response to immunization or prior exposure to the virus. ----REFERENCE VALUE---- Vaccinated: Positive (>=1.0 AI) Unvaccinated: Negative (<=0.7 AI) Rubella IgG Antibody Index 2.6 12/21/2021 11 :40 AM SHIPPING ROOM SUPERVISOR [facility] Specimen Anatomical Collection Method Collection Time Receive d Time (Source) Location / / Volume Laterality Blood (Blood, 12/20/2021 11:34 12/20/2021 6:27 Venous) AM SHIPPING ROOM SUPERVISOR PM SHIPPING ROOM SUPERVISOR Cheikh Gautam M.D. LAB MICROBIOLOGY - BLOOD ORD ERABLES Performing Organization Address City/State/ZIP Code Phon e Number [facility]- [address] [place] [phone] [place] [address] HIV-1/-2 Ag and Ab Scrn, Plasma (12/20/2021 11:34 AM SHIPPING ROOM SUPERVISOR) P athologist Signature HIV Ag/Ab Negative Negative 12/21/2021 [facility] Scrn, 11:40 AM SHIPPING ROOM SUPERVISOR P Comment: Negative result does not rule out HIV in fection. If exposure to HIV infection occurred <14 d ays ago, contact the laboratory to request additi on of HIV-1 RNA detection / quantification test. HIV-1 p24 Ag Scrn, P Negative Negative 12/21/2021 11:40 AM SHIPPING ROOM SUPERVISOR [facility] Comment: Negative result does not rule out HIV in fection. If exposure to HIV infection occurred <14 d ays ago, contact the laboratory to request additi on of HIV-1 RNA detection / quantification test. HIV-1 Ab Scrn, P Negative Negative 12/21/2021 11: 40 AM SHIPPING ROOM SUPERVISOR [facility] Comment: Negative result does not rule out HIV in fection. If exposure to HIV infection occurred <14 d ays ago, contact the laboratory to request additi on of HIV-1 RNA detection / quantification test. HIV-2 Ab Scrn, P Negative Negative 12/21/2021 11: 40 AM SHIPPING ROOM SUPERVISOR [facility] Comment: Negative result does not rule out HIV in fection. If exposure to HIV infection occurred <14 d ays ago, contact the laboratory to request additi on of HIV-1 RNA detection / quantification test. Specimen Anatomical Collection Method Collection Time Receive d Time (Source) Location / / Volume Laterality Blood (Blood, 12/20/2021 11:34 12/20/2021 6:27 Venous) AM SHIPPING ROOM SUPERVISOR PM SHIPPING ROOM SUPERVISOR Cheikh Gautam M.D. LAB MICROBIOLOGY - BLOOD ORD ERABLES Performing Organization Address City/State/ZIP Code Phon e Number [facility]- [address] [place] [phone] [place] [address] [address] HBs Antigen , Serum (12/20/2021 11:34 AM SHIPPING ROOM SUPERVISOR) [facility] Method Time Signature HBs Antigen Non reactive Non reactive 12/20/2021 [facility] , S 4:50 PM SHIPPING ROOM SUPERVISOR Specimen Anatomical Collection Method Collection Time Receive d Time (Source) Location / / Volume Laterality Blood (Blood, 12/20/2021 11:34 12/20/2021 3:49 Venous) AM SHIPPING ROOM SUPERVISOR PM SHIPPING ROOM SUPERVISOR Cheikh Gautam M.D. LAB MICROBIOLOGY - BLOOD ORD ERABLES Performing Organization Address City/State/ZIP Code Phon e Number [facility]- [address] [place] [address] [facility] [place] [address] [facility] [address] (ABNORMAL) CBC without Differential (12/20/2021 11:34 AM SHIPPING ROOM SUPERVISOR) [facility] Method Time Signature Hemoglobin 14.1 11.6 - 12/20/2021 [facility] 15.0 g/dL 11:44 AM SHIPPING ROOM SUPERVISOR Hematocrit 41.0 35.5 - 12/20/2021 [facility] 44.9 % 11:44 AM SHIPPING ROOM SUPERVISOR Erythrocytes 4.91 3.92 - 12/20/2021 [facility] 5.13 11:44 AM SHIPPING ROOM SUPERVISOR x10(12)/L MCV 83.5 78.2 - 12/20/2021 [facility] 97.9 fL 11:44 AM SHIPPING ROOM SUPERVISOR RBC Distrib Width 11.7 (L) 12.2 - 12/20/2021 [facility] 16.1 % 11:44 AM SHIPPING ROOM SUPERVISOR Platelet Count 360 157 - 371 12/20/2021 [facility] x10(9)/L 11:44 AM SHIPPING ROOM SUPERVISOR Leukocytes 11.1 (H) 3.4 - 9.6 12/20/2021 [facility] x10(9)/L 11:44 AM SHIPPING ROOM SUPERVISOR Specimen Anatomical Collection Method Collection Time Receive d Time (Source) Location / / Volume Laterality Blood (Blood, 12/20/2021 11:34 12/20/2021 Venous) AM SHIPPING ROOM SUPERVISOR 11:40 AM SHIPPING ROOM SUPERVISOR Cheikh M Dain M.D. LAB BLOOD ADD-ON Performing Organization Address City/[facility]/ZIP Code Phon e Number [facility]- [address] [place] [address] [facility] [place] [address] System in [place] [address] Antibody Screen, RBC (with reflex Antibody ID) (12/20/2021 11:34 AM SHIPPING ROOM SUPERVISOR) P athologist Signature Antibody Screen NEG 12/20/2021 [facility] 5:16 PM SHIPPING ROOM SUPERVISOR Specimen Anatomical Collection Method Collection Time Receive d Time (Source) Location / / Volume Laterality Blood (Blood, 12/20/2021 11:34 12/20/2021 3:49 Venous) AM SHIPPING ROOM SUPERVISOR PM SHIPPING ROOM SUPERVISOR Cheikh Gautam M.D. LAB BLOOD BANK TEST ORDERABL ES Performing Organization Address City/[facility]/ZIP [facility] Phon e Number [facility]- [address] [place] [address] [facility] [place], [place] [id number] [place] [address] [address] [facility] ABORh, RBC (12/20/2021 11:34 AM SHIPPING ROOM SUPERVISOR) P athologist Signature ABO Group O 12/20/2021 5:16 [facility] PM SHIPPING ROOM SUPERVISOR Rh Type POS 12/20/2021 5:16 [facility] PM SHIPPING ROOM SUPERVISOR Specimen Anatomical Collection Method Collection Time Receive d Time (Source) Location / / Volume Laterality Blood (Blood, 12/20/2021 11:34 12/20/2021 3:51 Venous) AM SHIPPING ROOM SUPERVISOR PM SHIPPING ROOM SUPERVISOR Cheikh Gautam M.D. LAB BLOOD BANK TEST ORDERABL ES Performing Organization Address City/[facility]/ZIP [facility] Phon e Number [facility]- [address] [place] [address] [facility] [place], [place] [phone] [place] [address] [address] [facility] documented in this encounter Visit Diagnoses Diagnosis Encounter For Supervision Of Other Stella l Unspecified Trimester (HCC) documented in this encounter Additional Health Concerns Assessment Noted Time PHQ-9 Depression Total Score: 4 12/20/2021 10:52 AM CS T documented as of this encounter Care Teams Scrum Project Manager Relationship Specialty Start Date End Date Ben Arce M.D. PCP - General Family Medicine 01/13/[address] [place] [phone] documented as of this encounter
--- OUTSIDE RECORDS SUMMARY | 2022-05-31 00:59 | XMS_ITS | Encounter Summary ---
:1990 Author Organization [facility] Address [address] [place] [address] Care Team Providers Name Role Phone Ben Arce M.D. Primary Care Provider Reason for Visit Reason Comments Nurse Visit NOB ED/INTAKE APPT Encounter Details Date Type Department Care Team Description 12/08/2021 Virtual Visit Department of Terrence Swenson M.D. [address] [address] Encounter For Supervision Of Other Stella l Unspecified Trimester (Primary Dx); Obstetrics and Autumn Patel R.N. [address] [address] Examination Test With Positive Result Gynecology in [place], [place] [address] [address] Social History Tobacco Use Types Packs/Day [...] or relatives? How often do you attend muslim or Never 2021 catholic services? Do you belong to any clubs or No 11/20/2021 organizations such as muslim groups, unions, fraternal or athletic groups, or [...] to pay for the very basics like aNv jordan dai hard 11/20/2021 food, housing, medical care, [...] place to sleep or slept in a fdc (including now)? Education Answer Date Recorded What is the highest level of school you have completed or 12 th grade 05/17/2021 the highest degree you have received? Sex Assigned at Date Recorded Female 12/02/2021 5:19 PM [employer]ICE [employer]GE[employer] documented as of this encounter Patient Instructions Patient InstructionsAutumn Patel R.N. - 12/08/2021 1:30 PM CST Review education books, brochures, handouts provided today. Be sure to let your provider know if youwould like to do the optional testing. Avoid: alcohol, drugs, smoking during . Exercise: at least 30 Minutes, 3 times per week following precautions discussed today. Follow healthy diet to maintain healthy weight gain. Discuss any medication/supplements with your provider before taking. Call or portal message your care team with any symptoms of depression. Call or portal message with any question or concerns. Material Provided Today: Beginnings: , , and [facility] [place] brochure-[facility] [place] of [facility] [employer] documented in this encounter Progress Notes Autumn Patel R.N. - 12/08/2021 1:30 PM CST Consult conducted via real-time audio/video technology by Autumn Patel R.N. in [facility] to the patient in Patient's Home. episode opened-please see history for details. Conceived with Nexplanon in place-this was removed after positive Beta Hcg. 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 Denies concerns. Encouraged to call with questions or concerns. [employer] documented in this encounter Plan of Treatment Not on filedocumented as of this encounter Results Hepatitis C Virus Antibody Screen (12/20/2021 11:34 AM POLICE SERGEANT [employer]) athologist Signature HCV Ab Scrn Negative Negative 12/21/2021 [facility] , S 8:10 AM POLICE [employer]GE[employer] Comment: Goorzf-uj-hnyzbj ratio is <1.00 . Specimen Anatomical Collection Method Collection Time Receive d Time (Source) Location / / Volume Laterality Blood (Blood, 12/20/2021 11:34 12/21/2021 6:40 Venous) AM [employer] AM [employer] Cheikh Gautam M.D. LAB MICROBIOLOGY - BLOOD ORD ERABLES Performing Organization Address City/State/ZIP Code Phon e Number [facility] [address] [place] [phone] [facility] [place] [address] Laboratory Medicine and Pathology [address] [place] Syphilis Total Ab w/ Reflex, Serum (12/20/2021 11:34 AM POLICE SERGEANT [employer]CIN[employer]) [facility] Method Time Signature Syphilis Nonreactive Nonreactive 12/21/2021 [facility] Total Ab w/ 11:40 AM [employer] Reflex Comment: No serologic evidence of infection with T. pallidum (syphilis). ??Repeat testing may be cons idered in patients with suspected acute or primary syphilis in 2-4 weeks. For additional information on interpreta tion of the syphilis reverse algorithm and resul ts, see: [email or web address] Specimen Anatomical Collection Method Collection Time Receive d Time (Source) Location / / Volume Laterality Blood (Blood, 12/20/2021 11:34 12/20/2021 6:27 Venous) AM [employer] PM [employer] Cheikh Gautam M.D. LAB BLOOD ADD-ON Performing Organization Address City/[facility] Phon e Number [facility]- [address] [place] [address] [phone] [place] [address] System [address] Rubella Antibodies, IgG (12/20/2021 11:34 AM [employer]) athologist Signature Rubella Ab, Positive 12/21/2021 [facility] IgG, S 11:40 AM [employer] Comment: Results suggest response to immunization or prior exposure to the virus. ----REFERENCE VALUE---- Vaccinated: Positive (>=1.0 AI) Unvaccinated: Negative (<=0.7 AI) Rubella IgG Antibody Index 2.6 12/21/2021 11 :40 AM [employer] [facility] Specimen Anatomical Collection Method Collection Time Receive d Time (Source) Location / / Volume Laterality Blood (Blood, 12/20/2021 11:34 12/20/2021 6:27 Venous) AM [employer] PM [employer] Cheikh Gautam M.D. LAB MICROBIOLOGY - BLOOD ORD ERABLES Performing Organization Address City/State/ZIP Code Phon e Number [facility]- [address] [place] [phone] [place] [address] System [address] HIV-1/-2 Ag and Ab Scrn, Plasma (12/20/2021 11:34 AM POLICE [employer]GE[employer]) P athologist Signature HIV Ag/Ab Negative Negative 12/21/2021 [facility] Scrn, 11:40 AM POLICE SERGEANT [employer]CIN[employer] P Comment: Negative result does not rule out HIV in fection. If exposure to HIV infection occurred <14 d ays ago, contact the laboratory to request additi on of HIV-1 RNA detection / quantification test. HIV-1 p24 Ag Scrn, P Negative Negative 12/21/2021 11:40 AM POLICE [employer]GE[employer]CINCT CA Comment: Negative result does not rule out HIV in fection. If exposure to HIV infection occurred <14 d ays ago, contact the laboratory to request additi on of HIV-1 RNA detection / quantification test. HIV-1 Ab Scrn, P Negative Negative 12/21/2021 11: 40 AM POLICE [employer]GE[employer]CINCT CA Comment: Negative result does not rule out HIV in fection. If exposure to HIV infection occurred <14 d ays ago, contact the laboratory to request additi on of HIV-1 RNA detection / quantification test. HIV-2 Ab Scrn, P Negative Negative 12/21/2021 11: 40 AM POLICE [employer]GEANT [employer]CINCT [facility] Comment: Negative result does not rule out HIV in fection. If exposure to HIV infection occurred <14 d ays ago, contact the laboratory to request additi on of HIV-1 RNA detection / quantification test. Specimen Anatomical Collection Method Collection Time Receive d Time (Source) Location / / Volume Laterality Blood (Blood, 12/20/2021 11:34 12/20/2021 6:27 Venous) AM [employer] PM [employer] Cheikh Gautam M.D. LAB MICROBIOLOGY - BLOOD ORD ERAKAMALJIT Performing Organization Address City/State/ZIP Code Phon e Number [facility]- [address] [place] [address], [place] [phone] [place] [address] System [address] [place] HBs Antigen , Serum (12/20/2021 11:34 AM POLICE [employer]GE[employer]) [facility] Method Time Signature HBs Antigen Non reactive Non reactive 12/20/2021 AUST , S 4:50 PM POLICE [employer] Specimen Anatomical Collection Method Collection Time Receive d Time (Source) Location / / Volume Laterality Blood (Blood, 12/20/2021 11:34 12/20/2021 3:49 Venous) AM [employer] PM [employer] Cheikh Gautam M.D. LAB MICROBIOLOGY - BLOOD ORD ERAKAMALJIT Performing Organization Address City/State/ZIP Code Phon e Number [facility]- [address] [place] [address] [place] [place], [place] [id number] [place] [address] (ABNORMAL) CBC without Differential (12/20/2021 11:34 AM POLICE SERGE[employer]CIN[employer]) [facility] Method Time Signature Hemoglobin 14.1 11.6 - 12/20/2021 [facility] 15.0 g/dL 11:44 AM [employer] Hematocrit 41.0 35.5 - 12/20/2021 [facility] 44.9 % 11:44 AM [employer] Erythrocytes 4.91 3.92 - 12/20/2021 [facility] 5.13 11:44 AM [employer]ICE [employer]GEANT [employer] x10(12)/L MCV 83.5 78.2 - 12/20/2021 [facility] 97.9 fL 11:44 AM POLICE [employer] RBC Distrib Width 11.7 (L) 12.2 - 12/20/2021 [facility] 16.1 % 11:44 AM [employer]ICE [employer] Platelet Count 360 157 - 371 12/20/2021 [facility] x10(9)/L 11:44 AM POLICE [employer]GEANT [employer]CINCT Leukocytes 11.1 (H) 3.4 - 9.6 12/20/2021 [facility] x10(9)/L 11:44 AM POLICE [employer]GE[employer]CT Specimen Anatomical Collection Method Collection Time Receive d Time (Source) Location / / Volume Laterality Blood (Blood, 12/20/2021 11:34 12/20/2021 Venous) AM [employer] SERGEANT [employer]CINCT 11:40 AM POLICE SERGEANT PRECINCT Cheikh Gautam M.D. LAB BLOOD ADD-ON Performing Organization Address City/State/ZIP Code Phon e Number [facility]- [address] [place] [address] [place] [address] System in [place] [address] Antibody Screen, RBC (with reflex Antibody ID) (12/20/2021 11:34 AM POLICE SERGEANT [employer]CIN[employer]) P athologist Signature Antibody Screen NEG 12/20/2021 AUST 5:16 PM POLICE [employer]GE[employer] Specimen Anatomical Collection Method Collection Time Receive d Time (Source) Location / / Volume Laterality Blood (Blood, 12/20/2021 11:34 12/20/2021 3:49 Venous) AM POL[employer]GE[employer]CIN[employer] PM POLICE SERGEANT PRECINCT Cheikh Gautam M.D. LAB BLOOD BANK TEST ORDERABL ES Performing Organization Address City/[facility]/ZIP Code Phon e Number [facility]- [address] [place] [address] [facility] - [address] ABORh, RBC (12/20/2021 11:34 AM POLICE SERGEANT PRECIN[employer]) P athologist Signature ABO Group O 12/20/2021 5:16 [place] PM [employer] Rh Type POS 12/20/2021 5:16 [place] PM [employer]ICE [employer] Specimen Anatomical Collection Method Collection Time Receive d Time (Source) Location / / Volume Laterality Blood (Blood, 12/20/2021 11:34 12/20/2021 3:51 Venous) AM [employer]CINCT PM POL[employer] SERGE[employer]CINCT Cheikh Gautam M.D. LAB BLOOD BANK TEST ORDERABL ES Performing Organization Address City/State/ZIP Code Phon e Number [facility]- [address] [place] [address] [facility] - [address] Bacterial Culture, Aerobic + Susc, Urine (12/20/2021 11:26 AM POLICE SERGEANT PRECINCT) [facility] Method Time Signature Urine Culture No growth 12/21/2021 [facility] after 1 day 8:40 AM POLICE SERGE[employer] of incubation. Specimen Anatomical Collection Method Collection Time Receive d Time (Source) Location / / Volume Laterality Urine (Urine, 12/20/2021 11:26 12/20/2021 2:19 Midstream) AM POL[employer]GE[employer]IN[employer] PM [employer]ICE [employer]GE[employer]IN[employer] Comment: Specimen Source Site: Urine Cheikh Gautam M.D. LAB MICROBIOLOGY - GENERAL O RDERABLES Performing Organization Address City/State/ZIP Code Phon e Number [facility]- [address] [place] [id number] [place] [address] [place] [address] [address] Urinalysis with Microscopic if Indicated (12/20/2021 11:26 AM POLICE SERGEANT PRECINCT) P athologist Signature Source Urine, 12/20/2021 [place] Urine, Clean 12:12 PM POLICE [employer]GE[employer]CIN[employer] Catch Clarity Clear Clear 12/20/2021 [facility] 12:12 PM [employer]ICE [employer] Color Yellow 12/20/2021 [facility] 12:12 PM POLICE [employer]GE[employer]CIN[employer] Comment: ----REFERENCE VALUE---- Colorless Yellow Ronda Blood Negative Negative 12/20/2021 12:12 PM POLICE SERGE[employer]CINCT [facility] Nitrite Negative Negative 12/20/2021 12:12 PM POLICE [employer]GE[employer]CIN[employer] [facility] Leukocyte Esterase Negative Negative 12/20/2021 12:[address] [facility] Protein Negative mg/dL 12/20/2021 12:12 PM POLICE [employer]GE[employer]CIN[employer] [facility] Comment: ----REFERENCE VALUE---- Negative Trace Glucose Negative Negative mg/dL 12/20/2021 12:12 PM POLICE SERGEANT PRECINCT O FRANSICO Ketone Negative Negative mg/dL 12/20/2021 12:12 PM POLICE SERGEANT PRECINCT O FRANSICO Bilirubin Negative Negative 12/20/2021 12:12 PM [employer]ICE [employer]GE[employer]IN[employer] [facility] pH 6.0 5.0 - 8.0 12/20/2021 12:12 PM [employer]ICE [employer] [facility] Specific White 1.005 1.001 - 1.035 12/20/2021 12:12 PM POLICE [employer]GE[employer]INCT [facility] Urobilinogen 0.2 0.2 - 1.0 mg/dL 12/20/2021 12:[address] [facility] Specimen Anatomical Collection Method Collection Time Receive d Time (Source) Location / / Volume Laterality Urine (Urine, 12/20/2021 11:26 12/20/2021 Clean Catch) AM POLICE SERGEANT PRECINCT 12:06 PM POLICE SERGEANT PRECINCT Cheikh Gautam M.D. LAB URINE ORDERABLES Performing Organization Address City/State/ZIP Code Phon e Number [facility]- [address] [place] [address] [place] [address] System in [place] [address] documented in this encounter Visit Diagnoses Diagnosis Encounter For Supervision Of Other Stella l Unspecified Trimester (HCC) - Primary Examination Test With Positive Result (HCC) documented in this encounter Care Teams Ton Container Filler Relationship Specialty Start Date End Date Ben Arce M.D. PCP - General Family Medicine 01/13/[address] [place] [address] documented as of this encounter
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
--- OUTSIDE RECORDS SUMMARY | 2022-05-31 00:59 | XMS_ITS | Encounter Summary ---
:1990 Author Organization [facility] Address [address] [place] [address] Care Team Providers Name Role Phone Ben Arce M.D. Primary Care Provider Encounter Details Date Type Department Care Team Description 12/20/2021 Orders Only Department of Obstetrics and Gau Terrence zamarripa M.D. Gynecology in [address] [address] [place] [address] [phone] Social History Tobacco Use Types Packs/Day Years [...] or relatives? How often do you attend buddhism or Never 2021 christian services? Do you belong to any clubs or No 11/20/2021 organizations such as buddhism groups, unions, fraternal or athletic groups, or [...] to sleep or slept in a senior living (including now)? Education Answer Date Recorded What is the highest level of school you have completed or 12 th grade 05/17/2021 the highest degree you have received? 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 PCP - General Family Medicine 01/13/[address] [place] [id number] documented as of this encounter
--- OUTSIDE RECORDS SUMMARY | 2022-05-31 00:59 | XMS_ITS | Encounter Summary ---
:1990 Author Organization [facility] Address [address] [place] [address] Care Team Providers Name Role Phone Ben Arce M.D. Primary Care Provider Reason for Referral Outpatient (Routine) - Authorized Specialty Diagnoses / Procedures Referred By Contact Refer red To Contact Obstetrics and Cheikh Gautam [facility] Gynecology [place] Referral ID Status Reason Start Date Expiration Date Visits V isits Requested Authorized [id number] Authorized 12/20/2021 12/20/2022 15 15 Scheduling Instructions Every 4 weeks until 28 week gestation. Then every 2 weeks until 36 week gestati on. Then every 1 week until 40+ week gestati on. USEFUL OR BUSSER Reason for Visit Reason Comments Initial Visit 7w 3d Outpatient (Routine) - Closed Specialty Diagnoses / Procedures Referred By Contact Refer red To Contact Obstetrics and Diagnoses Examination Test With Positive Result (HCC) Terrence Swenson M.D. [facility] [address] [place] [address] Referral ID Status Reason Start Date Expiration Date Visits Requ ested Visits Authorized [id number] Closed 12/01/2021 12/01/2022 1 1 Encounter Details Date Type Department Care Team Description 12/20/2021 Initial Department of Obstetrics [place] in [place], [place]: 6w1d and Gynecology in [place], [place] [address] [place] [address] Social History Tobacco Use Types Packs/Day Years [...] or relatives? How often do you attend religion or Never 2021 jew services? Do you belong to any clubs or No 11/20/2021 organizations such as religion groups, unions, fraternal or athletic groups, or [...] minutes do you engage in exercise at is 60 min 11/20/2021 level? Stress Answer Date Recorded Do you feel stress - tense, restless, nervous, or To some ex tent 11/20/2021 anxious, or unable to sleep at night because your mind is troubled all the time - these days? Financial Resource Strain Answer Date Recorded How hard is it for you to pay for the very basics like Not julian verdugoy hard 11/20/2021 food, housing, medical care, and [...] place to sleep or slept in a intermediate (including now)? Education Answer Date Recorded What is the highest level of school you have completed or 12 th grade 05/17/2021 the highest degree you have received? Sex Assigned at Date Recorded Female 12/02/2021 5:19 PM BAR USEFUL OR BUSSER documented as of this encounter Last Filed Vital Signs Vital Sign Reading Time Taken Comments Blood Pressure 136/80 12/20/2021 10:52 AM BAR USEFUL OR BUSSER Pulse - - Temperature - - Respiratory Rate - - Oxygen Saturation - - Inhaled Oxygen Concentration - - Weight 69.2 kg (152 lb 8.9 oz) 12/20/2021 10:52 AM BAR USEFUL OR BUSSER Height - - Body Mass Index 28.8 12/09/2021 8:31 AM BAR USEFUL OR BUSSER documented in this encounter Progress Notes Cheikh Gautam M.D. - 12/20/2021 11:30 AM CST REASON FOR VISIT: Establish Care SUBJECTIVE HISTORY OF PRESENT ILLNESS Patient is a 31 y.o. who presents to clinic to establish care. She was having significant nausea and vomiting and even went to the emergency room but now she is feeling much better. REVIEW OF SYSTEMS A complete review of systems is obtained and is negative other than stated in the HPI. ALLERGIES/CONTRAINDICATIONS Allergies Allergen Reactions ??? No Known Allergies Other (see comments) CURRENT MEDICATIONS The patient's medication list is reviewed and updated in the EMR during today's appointment. Current Outpatient Medications on File Prior to Visit Medication Sig Dispense Refill ??? acetaminophen (TYLENOL) 500 mg tablet Take 1,000 mg by mouth every 6 (six) hours as needed for pain. ??? vit27,calcium/iron/FA (multivitamin/mineral-) tablet Take 1 tablet by mouth daily. 90 tablet 3 ??? amoxicillin-pot clavulanate (AUGMENTIN) 875-125 mg per tablet Take 1 tablet by mouth 2 (two) times a day. 20 tablet 0 ??? cetirizine (ZyrTEC) 10 mg tablet TAKE 1 TABLET(10 MG) BY MOUTH DAILY NEEDED FOR ALLERGIES 30 tablet 1 ??? etonogestreL (NEXPLANON) 68 mg subdermal implant 1 each by implant route continuously. ??? fluticasone propionate (FLONASE) 50 mcg/actuation nasal spray Administer 2 sprays into each nostril daily. ??? ibuprofen (ADVIL,MOTRIN) 600 mg tablet Take 600 mg by mouth every 6 (six) hours as needed for pain. ??? metroNIDAZOLE (FLAGYL) 500 mg tablet Take 1 tablet (500 mg total) by mouth 2 (two) times a day. 14 tablet 0 ??? naproxen (NAPROSYN) 500 mg tablet Take 1 tablet (500 mg total) by mouth 2 (two) times a day as needed for pain (pain). 60 tablet 0 ??? [] ondansetron ODT (ZOFRAN-ODT) 4 mg disintegrating tablet Take 1 tablet (4 mg total) by mouth every 8 (eight) hours as needed for nausea or vomiting for up to 10 days. 10 tablet 0 No current facility-administered medications on file prior to visit. MEDICAL/SURGICAL HISTORY Past Medical History: Diagnosis Date ??? Asthma NOS ??? Diabetes Mellitus Gestational 09/21/2012 Overview: Diet-controlled ??? Migraine Headache ??? Preeclampsia ??? Thrombosis Superficial Vein Lower Extremity Left 01/2019 Lesser Sapheneous Vein ??? Varicella Past Surgical History: Procedure Laterality Date ??? WISDOM TOOTH EXTRACTION OBGYN HISTORY: OB History Para Term AB Living 3 1 1 1 1 SAB IAB Ectopic Molar Multiple Live Births 1 1 # Outcome Date GA Lbr Ruel/2nd Weight Sex Delivery Anes PTL Lv 3 Current 2 12/05/12 36w3d 10:00 / 00:05 2.53 kg M Vag-Spont EPI N BHAVANI Comments: Induced preeclampsia-?MagSO4 1 SAB 2003 5w0d SA One early miscarriage, one complicated by GDM/preeclampsia and was induced at 36 weeks andhad a vaginal delivery Pap hx: NIL/neg HPV 11/2021 SOCIAL HISTORY Social History Socioeconomic History ??? Marital status: Single ??? Number of children: 1 ??? Highest education level: 12th grade Tobacco Use ??? Smoking status: Never Smoker ??? Smokeless tobacco: Never Used Vaping Use ??? Vaping Use: never used Substance and Sexual Activity ??? Alcohol use: No ??? Drug use: No ??? Sexual activity: Not Currently Social Determinants of Health Financial Resource Strain: [...] and Family: Twice a week ??? Attends Zoroastrianism Services: Never ??? Active Member of Clubs [...] Unstable Housing in the Last Year: No FAMILY HISTORY Family History Problem Relation Age [...] Aunt ??? Depression Sister ??? Depression Sister OBJECTIVE PHYSICAL EXAMINATION BP 136/80 Wt 69.2 kg LMP 10/29/2021 (Approximate) BMI 28.80 kg/m?? General: Well-developed female, no acute distress. HEENT: Normocephalic, atraumatic Heart: Regular rate and rhythm without murmurs rubs or gallops. Lungs: Clear to auscultation bilaterally without wheezes or crackles. Abdomen: Soft, nondistended, nontender to palpation Extremities: Warm, nontender, no edema. ASSESSMENT / PLAN Lulu Mata is a 31 y.o. , IUP at 6w1d by US today here for new OB visit. #1 IUP, status reassuring -Dated by US today (not consistent with approximate LMP). #2 care -Discussed the frequency of appointments. Clinic and hospital contact information was provided today. precautions reviewed. PNV: taking. - labs: ordered -Aneuploidy screening: discussed and pt declines -Carrier Screening: Cystic fibrosis and spinal muscular atrophy carrier screening discussed in detail. Patient declines -Early GDM screening: A1C ordered -Preeclampsia prevention: aspirin to start at 12 weeks - Problems: 1. Hx preeclampsia: aspirin to start at 12 weeks. Need to get baseline preE labs with next visit 2. Hx GDM: Early A1C ordered #3 Healthcare maintenance -Pap: NIL w/ neg HPV 11/2021 -Covid Vaccine: complete. Patient plans to get booster today -Flu Vaccine: pt declines Next visit: baseline preeclampsia labs RTC 4 weeks or sooner as needed Cheikh Gautam MD Problem List Respiratory 1. Rhinitis Allergic Circulatory 2. Thrombosis Superficial Vein Lower Extremity Left Overview Lesser saphaneous vein Digestive 3. Deficiency Vitamin D Overview Overview: 28.3 Musculoskeletal 4. Tendonitis Elbow 5. Tendonitis Other 6. History Of Falling 7. Encounter For Supervision Of Normal Unspecified Trimester Overview 31 y.o. dated by 6w US (not consistent with approximate LMP). CARLOS 08/14/22. Prepregnancy BMI: 28. Social Hx: History: 1 early miscarriage, 1 induced delivery at 36 weeks due to preeclampsia (GDM thatpregnancy too) New OB Labs: Rh /Antibody Screen: /R/HIV /Hep B /Syphilis Antibody /Urine Culture /GCCT /Hgb Early DM Screening: A1C ordered due to hx GDM Vaccinations: COVID complete but needs booster/Flu declines Geodetic Surveyor Technologist: Pap NIL w/ neg HPV 11/2021 Aneuploidy screening/Carrier Screening: declines Preeclampsia prevention: aspirin to start at 12 weeks FAS: 28 week labs: TDAP /Rhogam GBS Growth Ultrasounds: surveillance: Presentation (36 weeks): Del planning: PPBC: Problems: 1. Hx preeclampsia: aspirin to start at 12 weeks. Need to get baseline preE labs 2. Hx GDM: Early A1C ordered USEFUL OR BUSSER documented in this encounter Plan of Treatment Scheduled Orders Name Type Priority Associated Diagnoses Order S chedule Glucose Tolerance Lab Routine Encounter For Expected: Test, 1 hour Supervision Of Other 022, Normal Expires: Unspecified Trimester Syphilis Total Ab w/ Microbiology Routine Encounter For Expect ed: Reflex, Serum Supervision Of Other 2021, Normal Expires: Unspecified Trimester Hemoglobin Lab Routine Encounter For Expected: Supervision Of Other 022, Normal Expires: Unspecified Trimester Scheduled Referrals Name Type Priority Associated Order Schedule Diagnoses Obstetrics and Outpatient Referral Routine 15 [facility] Gynecology office starting 0 12/20/2021 visit (clinic) until 023 documented as of this encounter Results US OB Anatomy Martins [...] Cheikh Gautam M.D. IMG OB US PROCEDURES Hemoglobin A1c (12/20/2021 11:34 AM BAR USEFUL OR BUSSER) P athologist Signature Hemoglobin A1c, 5.2 4.2 - 5.6 12/20/2021 OWAT B % 12:27 PM BAR USEFUL OR BUSSER Specimen Anatomical Collection Method Collection Time Receive d Time (Source) Location / / Volume Laterality Blood (Blood, 12/20/2021 11:34 12/20/2021 Venous) AM BAR USEFUL OR BUSSER 11:40 AM BAR USEFUL OR BUSSER Cheikh Gautam M.D. LAB BLOOD ADD-ON Performing Organization Address City/State/ZIP Code Phon e Number [facility] [address] [place] [address] [facility] [place] [address] System in [place] [address] documented in this encounter Visit Diagnoses Diagnosis Encounter For Supervision Of Other Stella l Unspecified Trimester (HCC) - Primary Examination Test With Positive Result (HCC) Encounter For Supervision Of Normal Preg roberta Unspecified Trimester (HCC) Encounter For Supervision Of Other Stella l Unspecified Trimester (HCC) documented in this encounter Additional Health Concerns Assessment Noted Time PHQ-9 Depression Total Score: 4 12/20/2021 10:52 AM CS T documented as of this encounter Care Teams Medicare Interviewer Relationship Specialty Start Date End Date Ben Arce M.D. PCP - General Family Medicine 01/13/[address] [place] [address] documented as of this encounter
--- OUTSIDE RECORDS SUMMARY | 2022-05-31 00:59 | XMS_ITS | Encounter Summary ---
:1990 Author Organization [facility] Address [address] [place] [address] Care Team Providers Name Role Phone Ben Arce M.D. Primary Care Provider Reason for Visit Reason Comments Routine Visit 12+2weeks Sinusitis Concerns Outpatient (Routine) - Authorized Specialty Diagnoses / Procedures Referred By Contact Refer red To Contact Obstetrics and Cheikh Gautam [facility] Gynecology MGonzalez Referral ID Status Reason Start Date Expiration Date Visits V isits Requested Authorized [id number] Authorized 12/20/2021 12/20/2022 15 15 Encounter Details Date Type Department Care Team Description 02/01/2022 Routine Department of Terrence Swenson [facility] Obstetrics and MGonzalez (Primary Dx) Gynecology in [address] [address] [place], [place] [phone] (Work) [phone] Social History Tobacco Use Types Packs/Day Years [...] or relatives? How often do you attend episcopal or Never 2021 zoroastrianism services? Do you belong to any clubs or No 11/20/2021 organizations such as episcopal groups, unions, fraternal or athletic groups, or [...] at Date Recorded Female 12/02/2021 5:19 PM SACK CLEANER documented as of this encounter Last Filed Vital Signs Vital Sign Reading Time Taken Comments Blood Pressure 130/86 02/01/2022 8:50 AM CDT Pulse - - Temperature - - Respiratory Rate - - Oxygen Saturation - - Inhaled Oxygen Concentration - - Weight 69.9 kg (154 lb 1.6 oz) 02/01/2022 8:49 AM CDT Height - - Body Mass Index 29.09 12/09/2021 8:31 AM SACK CLEANER documented in this encounter Progress Notes Terrence Swenson M.D. - 02/01/2022 9:15 AM CDT SUBJECTIVE CHIEF COMPLAINT / REASON FOR VISIT care HISTORY OF PRESENT ILLNESS Lulu is a very pleasant 31 y.o. patient who presents for a check in the 1st trimester. Estimated Date of Delivery: 08/14/22 Based on this, her gestational age today is 12w2d. She hashistory of recurrent sinusitis, and she has symptoms of a sinus infection currently. She has been diagnosed with this but has not been given a course of antibiotics yet. Otherwise, no unusual complaints today and is not experiencing severe hyperemesis nor vaginal bleeding. She is tolerating PO well, and is taking vitamins. She is experiencing the typical symptoms of nausea, breast tenderness, and fatigue. She is requesting genetic testing. OB History 3 Para 1 Term 1 AB 1 Living 1 SAB 1 IAB Ectopic Molar Multiple Live Births 1 CURRENT MEDICATIONS Have been reviewed and are current in the EMR as of today's date. ALLERGIES Have been reviewed and are current in the EMR as of today's date. SOCIAL HISTORY Social History Tobacco Use ??? Smoking status: Never Smoker ??? Smokeless tobacco: Never Used Vaping Use ??? Vaping Use: never used Substance Use Topics ??? Alcohol use: No ??? Drug use: No Refer elsewhere in the EMR for established CARLOS, documentation of prior obstetric history, laboratoryinformation, and summary of medical record. OBJECTIVE PHYSICAL EXAMINATION VITAL SIGNS BP 130/86 Wt 69.9 kg LMP 10/29/2021 (Approximate) BMI 29.09 kg/m?? General: Well nourished, well developed female in no acute distress. Weight gain is documented in the EMR entry. heart tones are in the normal range by Doppler interrogation. OB labs reviewed today. Office ultrasound reveals appropriate and normal interval growth, normal cardiac activity, andpositive movement. Maternity 21 cell free DNA testing is being drawn today. ASSESSMENT / PLAN #1 High Risk - [id number] Plus-Sent Out Lab; Future; Expected date: 02/01/2022 Other orders - Obstetrics and Gynecology office visit (clinic) - amoxicillin-pot clavulanate (AUGMENTIN) 875-125 mg per tablet; Take 1 tablet by mouth every 12 (twelve) hours for 10 days., Starting 02/01/2022, Until 02/11/2022, Normal First trimester . Recommendations: Follow up visit is scheduled in four weeks. She will contact our obstetrics team ifneymar has any concerns or questions prior to her next visit. Start low-dose aspirin at in regimen of 81 mg per day. Augmentin prescription has been sent to her pharmacy in [place]. Most of the early symptoms of including nausea, breast tenderness, and fatigue should improve over the next month. The risk of miscarriage is greatly decreased after 12 weeks gestation. Electronically signed by: Terrence Swenson M.D. 02/01/22 9:16 AM CDT Answers for HPI/ROS submitted by the patient on 01/28/2022 No general issues: Yes No eye issues: Yes No ENT issues: Yes No heart issues: Yes No respiratory issues: Yes No GI issues: Yes No muscle/bone issues: Yes No skin issues: Yes No neurologic issues: Yes No mental health issues: Yes No blood/lymph issues: Yes No urinary/reproductive issues: Yes documented in this encounter Plan of Treatment Not on filedocumented as of this encounter Results [id number] Plus-Sent Out Lab (02/01/2022 9:52 AM CDT) P athologist Signature Result SEE COMMENT 02/08/2022 SEQU 2:56 PM CDT Comment: For final report, select Lab-Send Out L ab Results hyperlink below. Specimen Anatomical Collection Method Collection Time Receive d Time (Source) Location / / Volume Laterality Blood (Blood, 02/01/2022 9:52 AM 02/04/20 22 2:39 Venous) CDT PM CDT Narrative This result has an attachment that is no t available. Terrence Swenson M.D. LAB BLOOD NON ADD-ON Performing Organization Address City/State/ZIP Code Phon e Number [facility] [address] [place] [address] [employer] [employer] [address] [employer] [address] documented in this encounter Visit Diagnoses Diagnosis High Risk (HCC) - Primary documented in this encounter Additional Health Concerns Assessment Noted Time PHQ-9 Depression Total Score: 4 12/20/2021 10:52 AM CS T documented as of this encounter Care Teams Header Setup Operator Relationship Specialty Start Date End Date Ben Arce M.D. PCP - General Family Medicine 01/13/[address] [place] [address] documented as of this encounter
--- OUTSIDE RECORDS SUMMARY | 2022-05-31 00:59 | XMS_ITS | Encounter Summary ---
:1990 Author Organization [facility] Address [address] [place] [address] Care Team Providers Name Role Phone Ben Arce M.D. Primary Care Provider Encounter Details Date Type Department Care Team Description 02/01/2022 Hospital Encounter Department of Terrence Swenson High Risk Laboratory Medicine MGonzalez in [address] [address] [place], [place] [phone] (Work) [phone] Social History Tobacco Use Types Packs/Day Years [...] do you attend episcopal or Never 2021 scientology services? Do you belong to any clubs [...] place to sleep or slept in a jail (including now)? Education Answer Date Recorded What is the highest level of school you have completed or 12 th grade 05/17/2021 the highest degree you have received? Sex Assigned at Date Recorded Female 12/02/2021 5:19 PM BEE TENDER documented as of this encounter Medications at [...] 10 days. documented as of this encounter Plan of Treatment Not on filedocumented as of this encounter Procedures Procedure Name Priority Date/Time Associated Diagnosis Comme nts [id number] Routine 02/01/2022 9:52 AM High Risk Re sults for this PLUS-SENT OUT LAB CDT (HCC) procedure are in the results section. documented in this encounter Results [id number] Plus-Sent Out Lab (02/01/2022 9:52 AM CDT) [...] Organization Address City/State/ZIP Code Phon e Number [facility] [address] [place] [address] [employer] [facility] [employer] [place] [address] [employer] [address] documented in this encounter Visit Diagnoses Diagnosis High Risk (HCC) documented in this encounter Additional Health Concerns Assessment Noted Time PHQ-9 Depression Total Score: 4 12/20/2021 10:52 AM CS T documented as of this encounter Care Teams Vice President Of Academic Affairs Relationship Specialty Start Date End Date Ben Arce M.D. PCP - General Family Medicine 01/13/[address] [facility] [place] [address] documented as of this encounter
--- OUTSIDE RECORDS SUMMARY | 2022-05-31 00:59 | XMS_ITS | Encounter Summary ---
:1990 Author Organization [facility] Address [address] [place] [address] Care Team Providers Name Role Phone Ben Arce M.D. Primary Care Provider Reason for Referral Outpatient (Routine) - Authorized Specialty Diagnoses / Procedures Referred By Contact Refer red To Contact Diagnoses Subdermal Implantable Contraceptive Removal Rylie Mcdowell M.D. [facility] Procedures Subdermal Contraceptive Device [facility] [place] [address] Referral ID Status Reason Start Date Expiration Date Visits V isits Requested Authorized [id number] Authorized 12/01/2021 12/01/2022 1 1 DECORATOR Reason for Visit Reason Comments nexplanon removal Early . LMP 10/29/21. Pt will see Dr. Swenson in [place] with [facility] for . Appointment Request (Routine) - Closed Specialty Diagnoses / Procedures Referred By Contact Refer red To Contact Obstetrics and Gynecology Referral ID Status Reason Start Date Expiration Date Visits Requ ested Visits Authorized [id number] Closed 11/29/2021 11/29/2022 1 1 Encounter Details Date Type Department Care Team Description 12/01/2021 Office Visit Department of Rylie Mcdowell Subdermal Imp lancesar Obstetrics and Minoo Contraceptive Removal Gynecology in [address] (Primary Dx) [place], [place] [address] [facility] [address] [place], [place] [phone] (Work) [phone] Social History Tobacco Use Types Packs/Day Years [...] or relatives? How often do you attend zoroastrian or Never 2021 mormonism services? Do you belong to any clubs or No 11/20/2021 organizations such as zoroastrian groups, unions, fraternal or athletic groups, or [...] at Date Recorded Female 12/02/2021 5:19 PM SET DECORATOR documented as of this encounter Last Filed Vital Signs Vital Sign Reading Time Taken Comments Blood Pressure 155/91 12/01/2021 2:56 PM SET DECORATOR Pulse 84 12/01/2021 2:56 PM SET DECORATOR Temperature 36.2 ??C (97.2 ??F) 12/01/2021 2:56 PM SET DECORATOR Respiratory Rate - - Oxygen Saturation - - Inhaled Oxygen Concentration - - Weight 69.5 kg (153 lb 4.8 oz) 12/01/2021 2:56 PM SET DECORATOR Height - - Body Mass Index 28.94 11/08/2021 12:40 PM SET DECORATOR documented in this encounter Progress Notes Rylie Mcdowell M.D. - 12/01/2021 3:15 PM CST SUBJECTIVE CHIEF COMPLAINT / REASON FOR VISIT Chief Complaint Patient presents with ??? nexplanon removal Early . LMP 10/29/21. Pt will see Dr. Swenson in [place] with [facility] for . HISTORY OF PRESENT CONDITION Lulu Mata is a 31 y.o. who is here today for nexplanon removal . She had a positive test at home and now rising hcg levels. She is unsure how old her current nexplanon is - has a 9 yr old and has had one nexplanon replaced.She denies fever, chills, nausea, vomiting. No abnormal vaginal itching, odor or discharge. No dysuria, urgency or frequency. No abnormal vaginal spotting, bleeding or uterine cramping. Gynecologic History Patient's last menstrual period was 10/29/2021 (approximate). Social History Socioeconomic History ??? Marital status: Single ??? Highest education level: 12th grade Tobacco [...] and Family: Twice a week ??? Attends Congregation Services: Never ??? Active Member of Clubs [...] Unstable Housing in the Last Year: No Allergies Allergen Reactions ??? No Known Allergies Other (see comments) Medications the Patient Reported Taking etonogestreL (NEXPLANON) 68 mg subdermal implant (Taking) metroNIDAZOLE (FLAGYL) 500 mg tablet (Taking) OBJECTIVE VITAL SIGNS Vitals: 12/01/21 1456 BP: (!) 155/91 Pulse: 84 Temp: 36.2 ??C HT: -Wt 69.5 kg Body mass index is 28.94 kg/m??. PHYSICAL EXAM Vital Signs: reviewed in electronic medical record. General Appearance: reveals a well-nourished, well-developed female who is in no acute distress. Mental Status: her mood and affect appear normal. ASSESSMENT / PLAN Early Nexplanon removed today Needs serial Bhcg levels - plan US once HCG above 2106-0054 - Patient is following up at [facility] Diet and exercise, PNV and folate, smoking ,drugs and alcohol avoidance, foods to avoid - d/w patient. PATIENT EDUCATION Ready to learn, barriers to learning: none; learning preferences include listening. none Patient verbalizes understanding of the plan of care and offers no further questions or concerns at this time. No orders of the defined types were placed in this encounter. There are no discontinued medications. Rylie Mcdowell M.D. DECORATOR documented in this encounter Procedure Notes Rylie Mcdowell M.D. - 12/01/2021 3:15 PM CSTAssociated Order(s): Subdermal Contraceptive Device Post-Procedure Diagnose(s): Subdermal Implantable Contraceptive Removal Subdermal Contraceptive Device Date/Time: 12/01/2021 4:11 PM Performed by: Rylie Mcdowell M.D. Authorized by: Rylie Mcdowell M.D. PROCEDURE DETAILS Procedure: removal Implant removal location: left arm Palpated location of implant: yes Small incision made: yes Implant removed intact: yes Implant shown to patient prior to disposal: yes Site closed by usual method: yes Site dressed and pressure bandage applied: yes Reason for removal of implant: other (specify) Other reason(s) for removal of implant: CONSENT Consent obtained: verbal PRE-PROCEDURE DETAILS Assessment - reasonably exclude based on: PREG criteria Site preparation: povidone-iodine and alcohol SEDATION / ANESTHESIA Anesthesia method: local infiltration Local infiltrate type: see MAR for dose, lidocaine POST-PROCEDURE DETAILS Complications: no apparent complications COMMUNITY FUNDRAISER DECORATOR documented in this encounter Plan of Treatment Not on filedocumented as of this encounter Procedures Procedure Name Priority Date/Time Associated Diagnosis Comme nts IN RMVL DRUG IMPL Routine 12/01/2021 4:11 PM Subdermal Implant able Results for this SET DECORATOR Contraceptive Removal proced ure are in the results section. documented in this encounter Results IN RMVL DRUG IMPL (12/01/2021 4:11 PM SET DECORATOR) Narrative MMODAL - 12/01/2021 4:11 PM SET DECORATOR Rylie Mcdowell M.D. ? 12/01/2021 ??4:12 PM Subdermal Contraceptive Device Date/Time: 12/01/2021 4:11 PM Performed by: Rylie Mcdowell M.D. Authorized by: Rylie Mcdowell M.D. PROCEDURE DETAILS Procedure: removal Implant removal location: left arm Palpated location of implant: yes ?? Small incision made: yes ?? Implant removed intact: yes ?? Implant shown to patient prior to dispos al: yes ?? Site closed by usual method: yes ?? Site dressed and pressure bandage applie d: yes ?? Reason for removal of implant: other (sp ecify) Other reason(s) for removal of implant: CONSENT Consent obtained: verbal PRE-PROCEDURE DETAILS Assessment - reasona sandi exclude based on: PREG criteria Site preparation: povidone-iodine and al cohol SEDATION / ANESTHESIA Anesthesia method: local infiltration Local infiltrate type: see MAR for dose, lidocaine POST-PROCEDURE DETAILS ?? Complications: no apparent complications Rylie Mcdowell M.D. OB GYNE ORDERABLES Performing Organization Address City/State/ZIP Code Phon e Number MMODAL MMODAL NA documented in this encounter Visit Diagnoses Diagnosis Subdermal Implantable Contraceptive Jason adriana - Primary documented in this encounter Care Teams Body Wirer Relationship Specialty Start Date End Date Ben Arce M.D. PCP - General Family Medicine 01/13/[address] [place] [address] documented as of this encounter
--- OUTSIDE RECORDS SUMMARY | 2022-05-31 00:59 | XMS_ITS | Encounter Summary ---
:1990 Author Organization [facility] Address [address] [place] [address] Care Team Providers Name Role Phone Ben Arce M.D. Primary Care Provider Encounter Details Date Type Department Care Team Description 02/28/2022 Orders Only Department of Obstetrics and Gau Terrence zamarripa M.D. Gynecology in [address] [address] [place] [address] [phone] Social History Tobacco Use Types Packs/Day Years [...] or relatives? How often do you attend yarsanism or Never 2021 anabaptist services? Do you belong to any clubs or No 11/20/2021 organizations such as yarsanism groups, unions, fraternal or athletic groups, or [...] at Date Recorded Female 12/02/2021 5:19 PM PAYROLL TAX ANALYST documented as of this encounter Plan of Treatment Not on filedocumented as of this encounter Visit Diagnoses Not on filedocumented in this encounter Additional Health Concerns Assessment Noted Time PHQ-9 Depression Total Score: 4 12/20/2021 10:52 AM CS T documented as of this encounter Care Teams Commercial Electrician Relationship Specialty Start Date End Date Ben Arce M.D. PCP - General Family Medicine 01/13/[address] [place] [id number] documented as of this encounter
--- OUTSIDE RECORDS SUMMARY | 2022-05-31 00:59 | XMS_ITS | Encounter Summary ---
:1990 Author Organization [facility] Address [address] [place] [address] Care Team Providers Name Role Phone Ben Arce M.D. Primary Care Provider Reason for Visit Reason Comments Med Refill Encounter Details Date Type Department Care Team Description 03/16/2021 Refill Department of Family Medicine Ben Maynard M.D. Med Refill in [facility] [address] [place] [address] [phone] (Wo rk) Social History Tobacco Use Types [...] or relatives? How often do you attend caodaism or Never 2021 confucianism services? Do you belong to any clubs or No 11/20/2021 organizations such as caodaism groups, unions, fraternal or athletic groups, or [...] or slept in a penitentiary (including now)? Sex Assigned at Date Recorded Female 12/02/2021 5:19 PM SOLUTIONS SALES CONSULTANT documented as of this encounter Miscellaneous Notes Telephone Encounter - Celina Goyal RMaribellN. - 03/16/2021 11:58 AM CDT Refills must come from Dr Arce due to a Restricted program Unable to refill per protocol: Name of Medications Needing Refill: Naproxen Last Refill Date: 02/10/21 [id number], 0 refills Last / Future Appointment: 01/13/21 documented in this encounter Plan of Treatment Not on filedocumented as of this encounter Visit Diagnoses Diagnosis Pain Elbow Left documented in this encounter Care Teams Stock House Worker Relationship Specialty Start Date End Date Ben Arce M.D. PCP - General Family Medicine 01/13/[address] [place] [address] documented as of this encounter
--- OUTSIDE RECORDS SUMMARY | 2022-05-31 00:59 | XMS_ITS | Encounter Summary ---
:1990 Author Organization [facility] Address [address] [place] [address] Care Team Providers Name Role Phone Ben Arce M.D. Primary Care Provider Encounter Details Date Type Department Care Team Description 12/20/2021 Silent Schedule Department of Terrence Swenson, Pregnanc y Examination Obstetrics and M.D. Test With Positive Gynecology in [address] [place], [place] [address] [address] [place], [place] [phone] [address] (Work) [phone] Social History Tobacco Use Types Packs/Day Years [...] or relatives? How often do you attend religious or Never 2021 mosque services? Do you belong to any clubs or No 11/20/2021 organizations such as religious groups, unions, fraternal or athletic groups, or [...] place to sleep or slept in a correction (including now)? Education Answer Date Recorded What is the highest level of school you have completed or 12 th grade 05/17/2021 the highest degree you have received? Sex Assigned at Date Recorded Female 12/02/2021 5:19 PM CORPORATE DIRECTOR OF PHARMACY documented as of this encounter Plan of Treatment Not on filedocumented as of this encounter Procedures Procedure Name Priority Date/Time Associated Comments Diagnosis US OB FIRST RAD - Routine 12/20/2021 10:50 Results fo r this TRIMESTER (most inpatients AM CORPORATE DIRECTOR OF PHARMACY Examination Test procedu re are in and all With Positive the results outpatients) Result section. documented in this encounter Results US OB First Trimester (12/20/2021 10:50 AM CORPORATE DIRECTOR OF PHARMACY) Anatomical Region Laterality Modality Body, Ultrasound OB RST LOS, Ultrasound ARZ LOS N/A Ultrasound Specimen (Source) Anatomical Collection Method Collection Time Re ceived Time Location / / Volume Laterality 12/20/2021 12:31 PM CORPORATE DIRECTOR OF PHARMACY Impressions 12/20/2021 12:34 PM CORPORATE DIRECTOR OF PHARMACY Single, viable, intrauterine gestation w ith CARLOS of August 14, 2022 (not consistent with menstrual dating). Narrative 12/20/2021 12:34 PM CORPORATE DIRECTOR OF PHARMACY EXAM: US OB FIRST TRIMESTER COMPARISON: None Physician: Dr. Swenson FINDINGS: Gestational age and CARLOS by LMP or OB/EHR assignment: 7 w 3 d, CARLOS: 08/05/2022 INTRAUTERINE Pole: Normal, Emelle-Rump Length: 0 .50 cm Gestational Sac: Normal Yolk Sac: Normal Placenta Location: Too Early to ID Age and CARLOS by current ultrasound measur ements: 6 w 1 d, CARLOS: 08/14/2022. heart rate: 116 Uterus: No unexpected findings. Right Ovary/Adnexa: Normal. Left Ovary/Adnexa: Normal. Cervical Length: Subjectively normal by Transabd evaluation only Intraperitoneal Fluid: None. Procedure Note Terrence Swenson M.D. - 12/20/2021Formatt ing of this note might be different from the original. EXAM: US OB FIRST TRIMESTER COMPARISON: None Physician: Dr. Swenson FINDINGS: Gestational age and CARLOS by LMP or OB/EHR assignment: 7 w 3 d, CARLOS: 08/05/2022 INTRAUTERINE Pole: Normal, Emelle-Rump Length: 0 .50 cm Gestational Sac: Normal Yolk Sac: Normal Placenta Location: Too Early to ID Age and CARLOS by current ultrasound measur ements: 6 w 1 d, CARLOS: 08/14/2022. heart rate: 116 Uterus: No unexpected findings. Right Ovary/Adnexa: Normal. Left Ovary/Adnexa: Normal. Cervical Length: Subjectively normal by Transabd evaluation only Intraperitoneal Fluid: None. IMPRESSION: Single, viable, intrauterine gestation w ith CARLOS of August 14, 2022 (not consistent with menstrual dating). Terrence Swenson M.D. IMCt OB US PROCEDURES documented in this encounter Visit Diagnoses Diagnosis Examination Test With Positive Result (HCC) documented in this encounter Additional Health Concerns Assessment Noted Time PHQ-9 Depression Total Score: 4 12/20/2021 10:52 AM CS T documented as of this encounter Care Teams Residential Sales Representative Relationship Specialty Start Date End Date Ben Arce M.D. PCP - General Family Medicine 01/13/21 [address] [place] [address] documented as of this encounter
--- OUTSIDE RECORDS SUMMARY | 2022-05-31 00:59 | XMS_ITS | Encounter Summary ---
:1990 Author Organization [facility] Address [address] [place] [address] Care Team Providers Name Role Phone Ben Arce M.D. Primary Care Provider Reason for Visit Reason Comments Sinusitis Sinus pressure / sinus drain age/ sinus congestion x 6 weeks Encounter Details Date Type Department Care Team Description 11/08/2021 [facility] [place] [address] [facility] [address] [place] [phone] Social History Tobacco Use Types Packs/Day Years [...] or relatives? How often do you attend nondenominational or Never 2021 nondenominational services? Do you belong to any clubs or No 11/20/2021 organizations such as nondenominational groups, unions, fraternal or athletic groups, or [...] place to sleep or slept in a alf (including now)? Education Answer Date Recorded What is the highest level of school you have completed or 12 th grade 05/17/2021 the highest degree you have received? Sex Assigned at Date Recorded Female 12/02/2021 5:19 PM ASSOCIATE GENETICS PROFESSOR documented as of this encounter Last Filed Vital Signs Vital Sign Reading Time Taken Comments Blood Pressure 126/78 11/08/2021 12:40 PM ASSOCIATE GENETICS PROFESSOR Pulse 78 11/08/2021 12:40 PM ASSOCIATE GENETICS PROFESSOR Temperature 37 ??C (98.6 ??F) 11/08/2021 12:40 PM ASSOCIATE GENETICS PROFESSOR Respiratory Rate 16 11/08/2021 12:40 PM ASSOCIATE GENETICS PROFESSOR Oxygen Saturation 98% 11/08/2021 12:40 PM ASSOCIATE GENETICS PROFESSOR Inhaled Oxygen Concentration - - Weight 72.1 kg (158 lb 14.4 oz) 11/08/2021 12:40 PM ASSOCIATE GENETICS PROFESSOR Height 155 cm (5' 1.02) 11/08/2021 12:40 PM ASSOCIATE GENETICS PROFESSOR Body Mass Index 30 11/08/2021 12:40 PM ASSOCIATE GENETICS PROFESSOR documented in this encounter Patient Instructions Patient InstructionsArely Ferrell APRN, C.N.P. - 11/08/2021 12:30 PM ASSOCIATE GENETICS PROFESSOR Steam, frequent showers to break up mucus in back of throat. Follow up if not gradually improving over the next 7-10 days or sooner if symptoms would worsen. CIATE GENETICS PROFESSOR AttachmentsThe following attachments cannot be sent through Care Everywhere. Sinusitis (Rhinosinusitis) (Icelandic)documented in this encounter Progress Notes Arely Ferrell APRN, C.N.P. - 11/08/2021 12:30 PM CST SUBJECTIVE CHIEF COMPLAINT / REASON FOR VISIT Sinusitis (Sinus pressure / sinus drainage/ sinus congestion x 6 weeks) HISTORY OF PRESENT ILLNESS Lulu Mata is a 31 y.o. female who presents for evaluation of sinus infection. Initially felt as if allergies taking zyrtec and fluticasone nasal spray without relief. Congestion persists. Headache.Sore throat post nasal drip. No fever. No nausea vomiting or diarrhea. Home covid tests negative. Not sleeping well due to congestion. Treating with flonase, zyrtec, mucinex, advil PM. The following portions of the patient's history were reviewed and updated as appropriate: Allergies,current medications, medical history. Covid vaccinated x 2. Not boosted yet. REVIEW OF SYSTEMS Pertinent items are noted in HPI; all other review of systems was negative. OBJECTIVE VITAL SIGNS BP 126/78 (BP Location: Right arm, Patient Position: Sitting, Cuff Size: Regular) Pulse 78 Temp 37 ??C (Temporal) Resp 16 Ht 155 cm Wt 72.1 kg SpO2 98% BMI 30.00 kg/m?? PHYSICAL EXAMINATION Physical Exam Fatigued and afebrile mildly ill appearing 31 y.o. female. Skin: Warm dry intact. Afebrile. No evidence of rash. Head: Congestion and tenderness in the ethmoid, frontal, maxillary, nasal regions. Eyes: Erythemic injections throughout conjunctivae bilaterally. Increased tearing. Nose: Nares boggy draining thick santiago secretions. Nasal alae crusted. Middle turbinates erythemic andboggy. Throat: Posteriorly injected, erythemic. Thick postnasal drip present on a cobblestoned base. Ears: Bulging pearly white tympanic membranes bilaterally. Neck: Full and supple. No lymphadenopathy palpated. Full range of motion. Lungs: Clear auscultation anterior and posterior throughout. Respirations labored with harsh congested cough. No wheezing. No diminished breath sounds. Mental status: Alert, oriented and fatigued. ASSESSMENT / PLAN 1. Sinusitis - amoxicillin-pot clavulanate (AUGMENTIN) 875-125 mg per tablet; Take 1 tablet by mouth 2 (two) times a day. Dispense: 20 tablet; Refill: 0 Continue symptomatic relief measures. Follow-up if no relief over the next 7-10 days. Given work excuse note for today only. No further questions or concerns. Follow up as discussed and reviewed in AVS. Discharged from [facility] in stable condition. I personally spent 20 minutes in total care of the patient today. CIATE GENETICS PROFESSOR documented in this encounter Plan of Treatment Not on filedocumented as of this encounter Visit Diagnoses Diagnosis Sinusitis - Primary documented in this encounter Care Teams Buckle Wire Inserter Relationship Specialty Start Date End Date Ben Arce M.D. PCP - General Family Medicine 01/13/[address] [place] [address] documented as of this encounter
--- OUTSIDE RECORDS SUMMARY | 2022-05-31 00:59 | XMS_ITS | Encounter Summary ---
:1990 Author Organization [facility] Address [address] [place] [address] Care Team Providers Name Role Phone Ben Arce M.D. Primary Care Provider Reason for Referral Outpatient (Routine) - Closed Specialty Diagnoses / Procedures Referred By Contact Refer red To Contact Obstetrics and Diagnoses Examination Test With Positive Result (HCC) Terrence Swenson M.D. [facility] Gynecology [address] [phone] Referral ID Status Reason Start Date Expiration Date Visits Requ ested Visits Authorized [id number] Closed 12/01/2021 12/01/2022 1 1 HEALTH REGISTERED NURSE Specialty Diagnoses / Procedures Referred By Contact Refer red To Contact Terrence Swenson M.D. [facility] Region [address] [place] [phone] Referral ID Status Reason Start Date Expiration Date Visits Requ ested Visits Authorized HEALTH REGISTERED NURSE Encounter Details Date Type Department Care Team Description 12/01/2021 Clinical Communication Department of Terrence Swenson Obstetrics and [facility] in [address] [place], [place] [address] [place] [phone] [place], [place] [phone] (Work) [phone] Social History Tobacco Use Types Packs/Day Years [...] or relatives? How often do you attend orthodox or Never 2021 quaker services? Do you belong to any clubs or No 11/20/2021 organizations such as orthodox groups, unions, fraternal or athletic groups, or [...] place to sleep or slept in a halfway (including now)? Education Answer Date Recorded What is the highest level of school you have completed or 12 th grade 05/17/2021 the highest degree you have received? Sex Assigned at Date Recorded Female 12/02/2021 5:19 PM HOME HEALTH REGISTERED NURSE documented as of this encounter Miscellaneous Notes Telephone Encounter - Antonella Castaneda, R.N. - 12/01/2021 1:35 PM CST Reason for call: initiate care History: LMP: 10/04/2021 (full period), had spotting 10/29 and 10/30 Gestational Age: 4+5 weeks CARLOS: 08/05/2022 : 3 Para: 1 Miscarriage: 1 SAB (reports at 4 weeks) Termination: 0 Stillbirth: 0 Delivery History: x 1, IOL for PreE and GDM at 32 weeks Assessment: Any symptoms or concerns? Conceived with Nexplanon in, last inserted 6 years ago. Is having this removed today. Nausea and vomiting. Have you had any of the following? Previous tubal ? Denies Diabetes or diabetes in ? Yes, GDM High blood pressure or high blood pressure in ? Yes, PreE Previous blood clots? Denies Any kidney or liver disease? Denies Any heart problems? Denies Received treatment for cancer? Denies Chronic Illness (PCOS, Thyroid, Hyperlipidemia): Asthma Any blood transfusions or organ transplant prior to 05/1992? Denies Medications: PNV- advised to start- Rx sent per RN protocol, Albuterol inhaler PRN Seasonal Flu Shot: Denies COVID vaccine: Has completed 2 doses. Tobacco Use: Denies PLAN NOB packet sent. Bleeding/pain precautions discussed and to notify clinic during office hours and EDafter hours. Encouraged to call with questions or concerns. Disposition/Recommendation: protocol orders for OW NOB appts. DOS will call to schedule OB EDU, dating US on 12/19 or after and NOB with Dr. Swenson. Information/Education: patient/caller able to teach back Caller agreeable to plan of care: yes The following references were used: Nursing Clinical Judgement HEALTH REGISTERED NURSE Telephone Encounter - Anisa White - 12/01/2021 12:26 PM CST Reason for Communication: Patient calling, had a positive home test and a clinic confirmedtest. LMP unknown. Patient is looking to transfer care from [place] Current Can Nursing/Provider leave a detailed message?: yes Did the patient refuse triage through Nurse line? (for symptom based concerns): Action Needed: Name of Medication (if relevant): Please send all scheduling replies to scheduling pool. HEALTH REGISTERED NURSE documented in this encounter Plan of Treatment Scheduled Referrals Name Type Priority Associated Diagnoses Order S chedule Obstetrics and Outpatient Referral Routine Expect ed: Gynecology - OB Examination Test 12/01/19 22 education visit With Positive Result (Sissy roximate), (clinic) Expires: 02/28/2023 Obstetrics and Outpatient Referral Routine Expect ed: Gynecology - Examination Test 12/19/2021, Obstetrics consult With Positive Result E xpires: (clinic) 02/28/2023 documented as of this encounter Results US OB First Trimester (12/20/2021 10:50 AM HOME HEALTH REGISTERED NURSE) Anatomical Region Laterality Modality Body, Ultrasound OB RST LOS, Ultrasound ARZ LOS N/A Ultrasound Specimen (Source) Anatomical Collection Method Collection Time Re ceived Time Location / / Volume Laterality 12/20/2021 12:31 PM HOME HEALTH REGISTERED NURSE Impressions 12/20/2021 12:34 PM HOME HEALTH REGISTERED NURSE Single, viable, intrauterine gestation w ith CARLOS of August 14, 2022 (not consistent with menstrual dating). Narrative 12/20/2021 12:34 PM HOME HEALTH REGISTERED NURSE EXAM: US OB FIRST TRIMESTER COMPARISON: None Physician: Dr. Swenson FINDINGS: Gestational age and CARLOS by LMP or OB/EHR assignment: 7 w 3 d, CARLSO: 08/05/2022 INTRAUTERINE Pole: Normal, [place] Length: 0 .50 cm Gestational Sac: Normal [...] 3 d, CARLOS: 08/05/2022 INTRAUTERINE Pole: Normal, [place] Length: 0 .50 cm Gestational Sac: Normal [...] consistent with menstrual dating). Terrence Swenson M.D. IMG OB US PROCEDURES documented in this encounter Visit Diagnoses Diagnosis Examination Test With Positive Result (HCC) - Primary Examination Test With Positive Result (HCC) documented in this encounter Care Teams Embedded Systems Developer Relationship Specialty Start Date End Date Ben Arce M.D. PCP - General Family Medicine 01/13/[address] [place], [place] [phone] documented as of this encounter
--- OUTSIDE RECORDS SUMMARY | 2022-05-31 00:59 | XMS_ITS | Encounter Summary ---
:1990 Author Organization [facility] Address [address] [place] [address] Care Team Providers Name Role Phone Ben Arce M.D. Primary Care Provider Reason for Visit Reason Comments Communication New script Encounter Details Date Type Department Care Team Description 10/06/2021 Clinical Communication Department of Ben Arce Comm unication (New Family Medicine in M.DMaribell script) [place] [address] [facility] [address] [facility] [phone] Social History Tobacco Use Types Packs/Day Years [...] or relatives? How often do you attend amish or Never 2021 pentecostal services? Do you belong to any clubs or No 11/20/2021 organizations such as amish groups, unions, fraternal or athletic groups, or [...] at Date Recorded Female 12/02/2021 5:19 PM EYEGLASS CUTTER documented as of this encounter Miscellaneous Notes Telephone Encounter - Babita Ramachandran R.N. - 10/06/2021 3:58 PM EYEGLASS CUTTER Portal message sent to patient that if she is on restricted plan she needs to contact her insurance for an exception. LASS CUTTER Telephone Encounter - Alana Perkins L.P.N. - 10/06/2021 3:02 PM EYEGLASS CUTTER Spoke to pt and informed her that we would need to know which medication for eye drops was ordered so that Dr Arce could send it in. Pt states she has no idea what it is. Informed pt to find out which medication it is and call us back with that info. LASS CUTTER Telephone Encounter - Migdalia Pompa - 10/06/2021 2:19 PM CST Patient has a scratched eyeball, and saw Dr. Annie Mendoza, who sent a prescription for drops to [facility]. However, patient cannot get it filled thru Dr. Mendoza as she is on a restricted pharmacy plan. Would Dr. Arce be able to authorize [facility] to fill the eye drops today sometime? Patient needs them for her sore eye. Please call patient with plan. Thank you. LASS CUTTER documented in this encounter Plan of Treatment Not on filedocumented as of this encounter Visit Diagnoses Not on filedocumented in this encounter Care Teams Family Nurse Practitioner Relationship Specialty Start Date End Date Ben Arce M.D. PCP - General Family Medicine 01/13/[address] [facility] [place] [phone] documented as of this encounter
--- OUTSIDE RECORDS SUMMARY | 2022-05-31 00:59 | XMS_ITS | Encounter Summary ---
:1990 Author Organization [facility] Address [address] [place] [address] Care Team Providers Name Role Phone Ben Arce M.D. Primary Care Provider Encounter Details Date Type Department Care Team Description 12/20/2021 Hospital Encounter Department of Cheikh Gautam Laboratory Medicine Minoo Garcia Supervis ion Of Other in [facility] Unspecified [address] [place] [address] Social History Tobacco Use Types Packs/Day Years [...] do you attend episcopal or Never 2021 yarsani services? Do you belong to any clubs [...] at Date Recorded Female 12/02/2021 5:19 PM SCREEN PRINTING LOADER UNLOADER documented as of this encounter Medications at [...] Name Priority Date/Time Associated Diagnosis Comme nts HEMOGLOBIN A1C, B Routine 12/20/2021 11:34 Encounter For Resul ts for this AM SCREEN PRINTING LOADER UNLOADER Supervision Of Other procedu re are in Normal the results Unspecified section. Trimester URINALYSIS WITH Routine 12/20/2021 11:26 Encounter For Results for this MICROSCOPIC IF AM SCREEN PRINTING LOADER UNLOADER Supervision Of Other proce dure are in INDICATED, U Normal the results Unspecified section. Trimester BACTERIAL CULTURE, Routine 12/20/2021 11:26 Encounter For Resu lts for this AEROBIC + SUSC, AM SCREEN PRINTING LOADER UNLOADER Supervision Of Other proc edure are in URINE Normal the results Unspecified section. Trimester documented in this encounter Results Hemoglobin A1c (12/20/2021 11:34 AM SCREEN PRINTING LOADER UNLOADER) P athologist Signature Hemoglobin A1c, 5.2 4.2 - 5.6 12/20/2021 [facility] B % 12:27 PM SCREEN PRINTING LOADER UNLOADER Specimen Anatomical Collection Method Collection Time Receive d Time (Source) Location / / Volume Laterality Blood (Blood, 12/20/2021 11:34 12/20/2021 Venous) AM SCREEN PRINTING LOADER UNLOADER 11:40 AM SCREEN PRINTING LOADER UNLOADER Cheikh Gautam M.D. LAB BLOOD ADD-ON Performing Organization Address City/State/ZIP Code Phon e Number [facility]- [address] [place] [address] [facility] [address] System in [place] [address] Bacterial Culture, Aerobic + Susc, Urine (12/20/2021 11:26 AM SCREEN PRINTING LOADER UNLOADER) Patholo gist Method Time Signature Urine Culture No growth 12/21/2021 [place] after 1 day 8:40 AM SCREEN PRINTING LOADER UNLOADER of incubation. Specimen Anatomical Collection Method Collection Time Receive d Time (Source) Location / / Volume Laterality Urine (Urine, 12/20/2021 11:26 12/20/2021 2:19 Midstream) AM SCREEN PRINTING LOADER UNLOADER PM SCREEN PRINTING LOADER UNLOADER Comment: Specimen Source Site: Urine Cheikh Gautam M.D. LAB MICROBIOLOGY - GENERAL O RDERABLES Performing Organization Address City/State/ZIP Code Phon e Number [facility]- [address] [place] [address] [place] [address] System in [place] [address] [place] [address] Urinalysis with Microscopic if Indicated (12/20/2021 11:26 AM SCREEN PRINTING LOADER UNLOADER) P athologist Signature Source Urine, 12/20/2021 [place] Urine, Clean 12:12 PM SCREEN PRINTING LOADER UNLOADER Catch Clarity Clear Clear 12/20/2021 [place] 12:12 PM SCREEN PRINTING LOADER UNLOADER Color Yellow 12/20/2021 [place] 12:12 PM SCREEN PRINTING LOADER UNLOADER Comment: ----REFERENCE VALUE---- Colorless Yellow Ronda Blood Negative Negative 12/20/2021 12:12 PM SCREEN PRINTING LOADER UNLOADER [facility] Nitrite Negative Negative 12/20/2021 12:12 PM SCREEN PRINTING LOADER UNLOADER [facility] Leukocyte Esterase Negative Negative 12/20/2021 12:[address] [facility] Protein Negative mg/dL 12/20/2021 12:12 PM SCREEN PRINTING LOADER UNLOADER [facility] Comment: ----REFERENCE VALUE---- Negative Trace Glucose Negative Negative mg/dL 12/20/2021 12:12 PM SCREEN PRINTING LOADER UNLOADER O FRANSICO Ketone Negative Negative mg/dL 12/20/2021 12:12 PM SCREEN PRINTING LOADER UNLOADER O FRANSICO Bilirubin Negative Negative 12/20/2021 12:12 PM SCREEN PRINTING LOADER UNLOADER [facility] pH 6.0 5.0 - 8.0 12/20/2021 12:12 PM SCREEN PRINTING LOADER UNLOADER [facility] Specific Nipomo 1.005 1.001 - 1.035 12/20/2021 12:12 PM SCREEN PRINTING LOADER UNLOADER [facility] Urobilinogen 0.2 0.2 - 1.0 mg/dL 12/20/2021 12:[address] [facility] Specimen Anatomical Collection Method Collection Time Receive d Time (Source) Location / / Volume Laterality Urine (Urine, 12/20/2021 11:26 12/20/2021 Clean Catch) AM SCREEN PRINTING LOADER UNLOADER 12:06 PM SCREEN PRINTING LOADER UNLOADER Cheikh Gautam M.D. LAB URINE ORDERABLES Performing Organization Address City/State/ZIP Code Phon e Number [facility]- [address] [place] [address] [place] [address] System in [place] [address] documented in this encounter Visit Diagnoses Diagnosis Encounter For Supervision Of Other Stella echols Unspecified Trimester (HCC) documented in this encounter Additional Health Concerns Assessment Noted Time PHQ-9 Depression Total Score: 4 12/20/2021 10:52 AM CS T documented as of this encounter Care Teams Hospitality Workers Relationship Specialty Start Date End Date Ben Arce M.D. PCP - General Family Medicine 01/13/[address] [place] [phone] documented as of this encounter
--- OUTSIDE RECORDS SUMMARY | 2022-05-31 00:59 | XMS_ITS | Encounter Summary ---
:1990 Author Organization [facility] Address [address] [place] [address] Care Team Providers Name Role Phone Ben Arce M.D. Primary Care Provider Reason for Visit Reason Comments Vomiting Pt presents with nausea and vomiting that began last evening at 1700. Has persisted all night. Pt is 6 weeks . Encounter Details Date Type Department Care Team Description 12/09/2021 Emergency [facility] Valerie Malone, Nause a And Vomiting (Primary Dx); Department M.D. Less Than 8 Weeks [address]estation [address] [place] [phone] Social History Tobacco Use Types Packs/Day Years [...] do you attend confucianism or Never 2021 pentecostalism services? Do you belong to any clubs [...] at Date Recorded Female 12/02/2021 5:19 PM DOUBLE END PRODUCTION GRINDER documented as of this encounter Last Filed Vital Signs Vital Sign Reading Time Taken Comments Blood Pressure 126/87 12/09/2021 9:45 AM DOUBLE END PRODUCTION GRINDER Pulse 95 12/09/2021 10:00 AM DOUBLE END PRODUCTION GRINDER Temperature 37.2 ??C (99 ??F) 12/09/2021 10:00 AM DOUBLE END PRODUCTION GRINDER Respiratory Rate 14 12/09/2021 8:29 AM DOUBLE END PRODUCTION GRINDER Oxygen Saturation 99% 12/09/2021 10:00 AM DOUBLE END PRODUCTION GRINDER Inhaled Oxygen Concentration - - Weight 68.3 kg (150 lb 9.2 oz) 12/09/2021 8:31 AM DOUBLE END PRODUCTION GRINDER Height 155 cm (5' 1.02) 12/09/2021 8:31 AM DOUBLE END PRODUCTION GRINDER Body Mass Index 28.43 12/09/2021 8:31 AM DOUBLE END PRODUCTION GRINDER documented in this encounter Discharge Instructions Discharge InstructionsValerie Malone M.D. - 12/09/2021 9:29 AM CST If you are unable to keep yourself well hydrated at home, please feel free to return. LE END PRODUCTION GRINDER AttachmentsThe following attachments cannot be sent through Care Everywhere. Morning Sickness (Chinese)documented in this encounter Medications at Time of Discharge Medication Sig Dispensed Refills Start Date End Date acetaminophen (TYLENOL) Take 1,000 mg by 0 500 mg tablet mouth every 6 (six) hours as needed for pain. Take 1 tablet by 90 tablet 3 12/01/2021 vit27,calcium/iron/FA mouth daily. (multivitamin/mineral-pre ) tablet ondansetron ODT Take 1 tablet (4 mg 10 tablet 0 12/09/2021 12/19/2021 (ZOFRAN-ODT) 4 mg total) by mouth disintegrating tablet every 8 (eight) hours as needed for nausea or vomiting for up to 10 days. amoxicillin-pot Take 1 tablet by 20 tablet 0 11/08/202110/2021 clavulanate (AUGMENTIN) mouth 2 (two) times 875-125 mg per a day. tabletIndications: Sinusitis cetirizine (ZyrTEC) 10 mg TAKE 1 TABLET(10 MG) 30 tablet 1 05/25/2021 12/20/2021 tabletIndications: BY MOUTH DAILY Rhinitis Allergic NEEDED FOR ALLERGIES etonogestreL (NEXPLANON) 1 each by implant 0 12/2112/20/2021 68 mg subdermal implant route continuously. fluticasone propionate Administer 2 sprays 0 12/20/2021 (FLONASE) 50 into each nostril mcg/actuation nasal spray daily. ibuprofen (ADVIL,MOTRIN) Take 600 mg by mouth 0 12/20/2021 600 mg tablet every 6 (six) hours as needed for pain. metroNIDAZOLE (FLAGYL) Take 1 tablet (500 14 tablet 0 11/2912/20/2021 500 mg tablet mg total) by mouth 2 (two) times a day. naproxen (NAPROSYN) 500 Take 1 tablet (500 60 tablet 0 02/2012/20/2021 mg tabletIndications: mg total) by mouth 2 Pain Elbow Left (two) times a day as needed for pain (pain). documented as of this encounter ED Notes Valerie Malone M.D. - 12/09/2021 9:30 AM CST SUBJECTIVE CHIEF COMPLAINT/REASON FOR VISIT Vomiting (Pt presents with nausea and vomiting that began last evening at 1700. Has persisted all night. Pt is 6 weeks . ) HISTORY OF PRESENT ILLNESS 31-year-old female 3 para 1 with previous history of 1st trimester miscarriage presents for evaluation of nausea and vomiting overnight. Threw up 7 or 8 times. No blood in the vomit. No diarrhea. Tried vitamin B6 at home but could not keep it in. She had been given Zofran in the past, by her OBGYN, but she is out. Unable to keep anything in this morning. Not running a fever. No respiratory symptoms. Two doses of COVID vaccine in the past. Probably overdue for booster. REVIEW OF SYSTEMS Constitutional: Negative for fever. Respiratory: Negative for cough and shortness of breath. Gastrointestinal: Positive for nausea and vomiting. Negative for abdominal pain. Genitourinary: Negative for pelvic pain and vaginal bleeding. All other systems reviewed and are negative. OBJECTIVE Initial Vitals Temperature Pulse Rate Heart Rate Resp Rate Blood Pressure SpO2 12/09/21 0829 12/09/2129 -- 12/09/21 0829 12/09/21 0815 12/09/21828 37.2 ??C (!) 114 14 (!) 142/97 98 % Pain Score 12/09/2130 4 PHYSICAL EXAMINATION Constitutional: Nursing note and vitals reviewed. No distress. HENT: Head: Normocephalic and atraumatic. Mouth/Throat: Mucous membranes are moist. Masked Eyes: Pupils are equal, round, and reactive to light. Neck: Neck supple. Cardiovascular: Regular rhythm and normal heart sounds. No murmur heard. Pulmonary/Chest: Effort normal and breath sounds normal. Abdominal: Soft. Bowel sounds are normal. There is no abdominal tenderness. There is no rebound and no guarding. Musculoskeletal: General: Normal range of motion. Cervical back: Normal range of motion and neck supple. Neurological: Alert and oriented to person, place, and time. Skin: Skin is warm and dry. Psychiatric: She has a normal mood and affect. Behavior is normal. Thought content normal. ASSESSMENT/PLAN IMPRESSION AND PLAN Vomiting with [id number] dehydration during . I gave normal saline 1 L IV, [id number] mg IV, Zofran 4 mg IV. She had incremental improvement in her nausea and feels stable for discharge to home at this time. She is due for an ultrasound in about a week. She should keep that appointment. She may return if she is having difficulty keeping herself well hydrated. I did talk to her about vitamin B6 in combination with doxylamine as a time tested alternative or nausea and vomiting. Thatsaid, she was given Zofran during previous pregnancies by her OB. I reviewed previous medical records including documentation from previous visits. Final Diagnoses: as of 12/09/[address] Nausea And Vomiting Less Than 8 Weeks Gestation Valerie Malone M.D. 12/09/21934 LE END PRODUCTION GRINDER documented in this encounter Plan of Treatment Not on filedocumented as of this encounter Visit Diagnoses Diagnosis Nausea And Vomiting - Primary Less Than 8 Weeks Gestation (HC C) documented in this encounter Administered Medications Inactive Administered Medications - up to 3 most recent administrations Medication Order MAR Action Action Date Dose Rate Site NaCl 0.9 % bolus 1,000 mL New Bag 12/09/2021 8:48 AM DOUBLE END PRODUCTION GRINDER 1,000 mL 1000 mL/hr 1,000 mL, intravenous, at 1,000 mL/hr, Administer over 1 Hours, Once, On Sun12/09/21 at 0836, For 1 dose ondansetron (PF) injection 4 mg (ZOFRAN) Given 12/09/2021 9:31 AM DOUBLE END PRODUCTION GRINDER 4 mg 4 mg, intravenous, Once, On Sun12/09/21 at 0921, For 1 dose pyridoxine (vitamin B6) injection 100 mg Given 12/09/2021 9:00 AM DOUBLE END PRODUCTION GRINDER 100 mg 100 mg, intravenous, Once, On Sun12/09/21 at 0836, For 1 dose sodium chloride 0.9 % injection 10 mL Given 12/09/2021 8:45 AM DOUBLE END PRODUCTION GRINDER 10 mL 10 mL, intravenous, As needed, line care, Starting on Sun12/09/21 at 0834, Peripheral Intravenous Catheter and Rapid Infusion Catheter, prior to blood sampling, post blood transfusion or post blood sampling sodium chloride 0.9 % injection 3 mL 3 mL, intravenous, As needed, line care, Starting on Sun12/09/21 at 0834, Prior to and following infusion and between multi ple consecutive infusions: sodium chloride 0.9 % injection sodium chloride 0.9 % injection 3 mL 3 mL, intravenous, Every 12 hours scheduled, First dos e on Sun12/09/21 at 0900, Peripheral Intravenous Catheter and Rapi d Infusion Catheter, when no infusion to maintain patency documented in this encounter Active and Recently Administered Medications Times are shown in DOUBLE END PRODUCTION GRINDER. Scheduled Medication Order 12/07/2021 12/08/2021 12/09/2021 NaCl 0.9 % bolus 1,000 mL (COMPLETED) 0848 (New Bag - Provider: Nita Rao R.N.)0948 (Stopped - Provider: Nita Rao R.N.) 1,000 mL, intravenous, at 1,000 mL/hr, A dminister over 1 Hours, Once, On Sun12/09/21 at 0836, For 1 dose ondansetron (PF) injection 4 mg (ZOFRAN) (COMPLETED) 0931 (Given - Provider: Nita Rao R.N.) 4 mg, intravenous, Once, On Sun12/09/21 at 0921, For 1 dose pyridoxine (vitamin B6) injection 100 mg (COMPLETED) 0900 (Given - Provider: Nita Rao R.N.) 100 mg, intravenous, Once, On Sun12/09/21 at 0836, For 1 dose sodium chloride 0.9 % injection 3 mL 0900 (Due) 3 mL, intravenous, Every 12 hours schedu led, First dose on Sun12/09/21 at 0900, Peripheral Intravenous Catheter and Rapid Infusion Catheter, when no infusion to maintain patency PRN Medication Order 12/07/2021 12/08/2021 12/09/2021 sodium chloride 0.9 % injection 10 mL 0845 (Given - Provider: Niat Rao R.N.) 10 mL, intravenous, As needed, line care , Starting on Sun12/09/21 at 0834, Peripheral Intravenous Catheter and Rapid Infusion Catheter, prior to blood sampling, post blood transfusion or post blood sampling sodium chloride 0.9 % injection 3 mL 3 mL, intravenous, As needed, line care, Starting on Sun12/09/21 at 0834, Prior to and following infusion and between multiple consecutive infusions: sodium chloride 0.9 % injection documented in this encounter Care Teams Draw Machine Operator Relationship Specialty Start Date End Date Ben Arce M.D. PCP - General Family Medicine 01/13/[address] [facility] [place] [phone] documented as of this encounter
--- OUTSIDE RECORDS SUMMARY | 2022-05-31 00:59 | XMS_ITS | Encounter Summary ---
:1990 Author Organization [facility] Address [address] [place] [address] Care Team Providers Name Role Phone Ben Arce M.D. Primary Care Provider Encounter Details Date Type Department Care Team Description 05/18/2021 Hospital Encounter Department of Alexander Rendon, Pain Hand Right Radiology, [facility], in [place] [address] [place], [place] [address] [place] [address] [place], [place] [phone] (Work) [phone] Social History Tobacco Use Types Packs/Day Years [...] do you attend religious or Never 2021 shinto services? Do you belong to any clubs [...] at Date Recorded Female 12/02/2021 5:19 PM BUSHLER documented as of this encounter Medications at Time of Discharge Medication Sig Dispensed Refills Start Date End Date acetaminophen (TYLENOL) Take 1,000 mg by 0 500 mg tablet mouth every 6 (six) hours as needed for pain. cetirizine (ZyrTEC) 10 mg Take 1 tablet (10 30 tablet 1 05/25/2021 tabletIndications: mg total) by mouth Rhinitis Allergic daily as needed for allergies. etonogestreL (NEXPLANON) 1 each by implant 0 12/2112/20/2021 68 mg subdermal implant route continuously. ibuprofen (ADVIL,MOTRIN) Take 600 mg by 0 12/20/2021 600 mg tablet mouth every 6 (six) hours as needed for pain. naproxen (NAPROSYN) 500 mg Take 1 tablet (500 60 tablet 0 0 03/17/2021 12/20/2021 tabletIndications: Pain mg total) by mouth Elbow Left 2 (two) times a day as needed for pain (pain). documented as of this encounter Plan of Treatment Not on filedocumented as of this encounter Procedures Procedure Name Priority Date/Time Associated Comments Diagnosis DX HAND RIGHT 3+ RAD - Routine 05/18/2021 10:02 Pain Hand Right Res ults for this VIEWS (most inpatients AM CDT procedure a re in and all the results outpatients) section. documented in this encounter Results DX Hand Right 3+ Views (05/18/2021 10:02 AM CDT) Anatomical Region Laterality Modality Upper Extremity, Hand, Musculoskeletal RST LOS, Right Computed Radiography Musculoskeletal ARZ LOS, Muskuloskeletal FLA LOS Specimen (Source) Anatomical Collection Method Collection Time Re ceived Time Location / / Volume Laterality 05/18/2021 10:32 AM CDT Impressions 05/18/2021 10:34 AM CDT Soft tissue swelling, no fracture or dis location. Narrative 05/18/2021 10:34 AM CDT EXAM: DX HAND RIGHT 3+ VIEWS COMPARISON: Right wrist of 05/30/2020. FINDINGS: There is some soft tissue swel ling at the bases of the 2nd through 5th fingers and over the dorsal aspect of th e metacarpophalangeal joints. No hand or wrist fracture is identified. Hand and w rist joint spaces are preserved. Procedure Note Jayesh Cunningham Jr., M.D. - 2020 EXAM: DX HAND RIGHT 3+ VIEWS COMPARISON: Right wrist of 05/30/2020. FINDINGS: There is some soft tissue swel ling at the bases of the 2nd through 5th fingers and over the dorsal aspect of th e metacarpophalangeal joints. No hand or wrist fracture is identified. Hand and w rist joint spaces are preserved. IMPRESSION: Soft tissue swelling, no fracture or dis location. Alexander TRUONG [facility] VARGAS BUTLER documented in this encounter Visit Diagnoses Diagnosis Pain Hand Right documented in this encounter Care Teams Manager Stylist Relationship Specialty Start Date End Date Ben Arce M.D. PCP - General Family Medicine 01/13/[address] [place] [phone] documented as of this encounter
--- OUTSIDE RECORDS SUMMARY | 2022-05-31 00:59 | XMS_ITS | Encounter Summary ---
:1990 Author Organization [facility] Address [address] [place] [address] Care Team Providers Name Role Phone Ben Arce M.D. Primary Care Provider Reason for Visit Reason Comments Other right hand injury---yesterda y Encounter Details Date Type Department Care Team Description 05/18/2021 Office Visit Department of Alexander Estrella Pain Hand Right (Primary Dx); Medicine in [facility] Contusion Hand Initial Right [place], [place] [address] [place] [phone] Social History Tobacco Use Types Packs/Day Years [...] or relatives? How often do you attend yarsani or Never 2021 alevism services? Do you belong to any clubs or No 11/20/2021 organizations such as yarsani groups, unions, fraternal or athletic groups, or [...] for the very basics like Not julian lala hard 11/20/2021 food, housing, medical care, [...] place to sleep or slept in a nursing home (including now)? Education Answer Date Recorded What is the highest level of school you have completed or 12 th grade 05/17/2021 the highest degree you have received? Sex Assigned at Date Recorded Female 12/02/2021 5:19 PM CARDIOLOGY NURSE PRACTITIONER documented as of this encounter Last Filed Vital Signs Vital Sign Reading Time Taken Comments Blood Pressure 131/90 05/18/2021 9:36 AM CDT Pulse 89 05/18/2021 9:36 AM CDT Temperature 36.2 ??C (97.2 ??F) 05/18/2021 9:36 AM CDT Respiratory Rate - - Oxygen Saturation 98% 05/18/2021 9:36 AM CDT Inhaled Oxygen Concentration - - Weight 72.1 kg (159 lb) 05/18/2021 9:36 AM CDT Height 155 cm (5' 1.02) 05/18/2021 9:36 AM CDT Body Mass Index 30.02 05/18/2021 9:36 AM CDT documented in this encounter Patient Instructions Patient InstructionsTaylAlexander kay D.O. - 05/18/2021 10:00 AM CDT You may use the ibuprofen as directed on your medication to help with pain. (Don not use ibuprofen and naproxen together). Ice the hand several times a day. Follow up in 1 week if pain not improved enough to return to work. documented in this encounter Progress Notes Alexander Rendon D.O. - 05/18/2021 10:00 AM CDT SUBJECTIVE CHIEF COMPLAINT: Chief Complaint Patient presents with ??? Other right hand injury---yesterday HISTORY OF PRESENT ILLNESS: Lulu Mata is a 31 y.o. female who presents for right hand injury. Box feel on hand at home yesterday while she was of boxes around on a shelf. Is right handed. C/o pain and swelling dorsal right hand across the 2-4 MCP joints. Reports pain bending the fingers on the right hand especially index and ring. Thumb does not seem scarlet involved. Ibuprofen 600mg 2 times a day helping. She is also icing. She needs a note for work as she does not feel she can do her job at [employer] MEDICATIONS: Current Outpatient Medications: ??? cetirizine (ZyrTEC) 10 mg tablet, Take 1 tablet (10 mg total) by mouth daily as needed for allergies., Disp: 30 tablet, Rfl: 1 ??? etonogestrel (NEXPLANON) 68 mg subdermal implant, 1 each by implant route continuously., Disp: ,Rfl: ??? acetaminophen (TYLENOL) 500 mg tablet, Take 1,000 mg by mouth every 6 (six) hours as needed for pain., Disp: , Rfl: ??? ibuprofen (ADVIL,MOTRIN) 600 mg tablet, Take 600 mg by mouth every 6 (six) hours as needed for pain., Disp: , Rfl: ??? naproxen (NAPROSYN) 500 mg tablet, Take 1 tablet (500 mg total) by mouth 2 (two) times a day as needed for pain (pain). (Patient not taking: Reported on 05/18/2021 ), Disp: 60 tablet, Rfl: 0 OBJECTIVE VITAL SIGNS: BP 131/90 Pulse 89 Temp 36.2 ??C (Temporal) Ht 155 cm Wt 72.1 kg SpO2 98% BMI 30.02 kg/m?? PHYSICAL EXAM: No acute distress Skin: Right hand without bruising rash or erythema. Vascular: Normal radial pulse and capillary refill right hand. Musculoskeletal: Right hand reveals swelling cross the second and third and fourth MCP joints dorsally. Tenderness of the right second MCP joint and metacarpal. Right third MCP joint slightly tender. She had difficulty making a full fist. She had pain limiting her making a wainwright with the thumb and index finger. No snuffbox tenderness noted Known neurovascular compromise upper ASSESSMENT / PLAN #1 Pain Hand Right - DX Hand Right 3+ Views; ordered and interpreted and reviewed with the patient showing no obvious bony injury. #2 Contusion Hand Initial Right -injury seems to be soft tissue in nature and should be self-limited. Recommend ice and continuing ibuprofen 600 mg up to 4 times a day as listed on medication list. -no right hand duty for 1 week. She can return to normal work and home life activities on May 26if pain has essentially resolved. If she has pain that limits her from returning to work at that time she should return to the clinic for follow-up. Work note provided documented in this encounter Plan of Treatment Not on filedocumented as of this encounter Results DX Hand Right 3+ [...] swelling, no fracture or dis location. Alexander Rendon D.O. IMG DIAGNOSTIC IMAGING PROCE DUR documented in this encounter Visit Diagnoses Diagnosis Pain Hand Right - Primary Contusion Hand Initial Right Pain Hand Right documented in this encounter Care Teams Billet Inspector Relationship Specialty Start Date End Date Ben Arce M.D. PCP - General Family Medicine 01/13/[address] [place] [phone] documented as of this encounter
--- OUTSIDE RECORDS SUMMARY | 2022-05-31 00:59 | XMS_ITS | Encounter Summary ---
:1990 Author Organization [facility] Address [address] [place] [address] Care Team Providers Name Role Phone Ben Arce M.D. Primary Care Provider Reason for Referral Specialty Diagnoses / Procedures Referred By Contact Refer red To Contact Ben Arce M.D. [facility] [address] [place] [phone] Referral ID Status Reason Start Date Expiration Date Visits Requ ested Visits Authorized ER AUTOMATIC Encounter Details Date Type Department Care Team Description 11/20/2021 Orders Only [facility] Kimberly Arce M.D. [address] [place], [place] [phone] (Wo rk) Social History Tobacco Use Types [...] or relatives? How often do you attend hindu or Never 2021 buddhism services? Do you belong to any clubs or No 11/20/2021 organizations such as hindu groups, unions, fraternal or athletic groups, or [...] at Date Recorded Female 12/02/2021 5:19 PM TINNER AUTOMATIC documented as of this encounter Plan of Treatment Scheduled Referrals Name Type Priority Associated Order Schedule Diagnoses Covid immunization Outpatient Referral Routine Ex pected: office visit Booster 022 (Approximate), Expires: 11/20/2022 documented as of this encounter Visit Diagnoses Not on filedocumented in this encounter Care Teams Head Doffer Relationship Specialty Start Date End Date Ben Arce M.D. PCP - General Family Medicine 01/13/[address] [place] [facility] [place] [phone] documented as of this encounter
--- OUTSIDE RECORDS SUMMARY | 2022-05-31 00:59 | XMS_ITS | Encounter Summary ---
:1990 Author Organization [facility] Address [address] [place] [address] Care Team Providers Name Role Phone Ben Arce M.D. Primary Care Provider Reason for Visit Reason Comments Nausea OTHER Breast pain Vomiting Positive at home test X 4 Encounter Details Date Type Department Care Team Description 11/24/2021 Comprehensive Visit Department of Grant Jones ncsharyn Test (Primary Dx); Obstetrics and J, LINE MANAGER, Counseling Bi rth Control; Gynecology in [facility] C.N.P., M.S.N. Pap Smear Examination [place], [place] [address] [place] [phone] Social History Tobacco Use Types Packs/Day Years [...] or relatives? How often do you attend adventism or Never 2021 buddhist services? Do you belong to any clubs or No 11/20/2021 organizations such as adventism groups, unions, fraternal or athletic groups, or [...] at Date Recorded Female 12/02/2021 5:19 PM MYCOLOGIST documented as of this encounter Last Filed Vital Signs Vital Sign Reading Time Taken Comments Blood Pressure 166/67 11/24/2021 1:50 PM MYCOLOGIST Pulse 118 11/24/2021 1:49 PM MYCOLOGIST Temperature 37.2 ??C (99 ??F) 11/24/2021 1:49 PM MYCOLOGIST Respiratory Rate - - Oxygen Saturation - - Inhaled Oxygen Concentration - - Weight 71.6 kg (157 lb 12.8 oz) 11/24/2021 1:49 PM MYCOLOGIST Height - - Body Mass Index 29.79 11/08/2021 12:40 PM MYCOLOGIST documented in this encounter Progress Notes Grant Jones, FATOU, C.N.P., M.S.N. - 11/24/2021 1:15 PM CST SUBJECTIVE REASON FOR VISIT test HISTORY OF PRESENT ILLNESS Ms. Mata is a 31 y.o. who presents for confirmation of . She currently has a Nexplanon device, but believes it has been more than 3 years since insertion. She is uncertain on exact date; [facility] at [facility]. She does menstruate with this method, but has not had menses in October. She was feeling nauseated with sensitivity to smell and took several home tests last week that returned positive. Of note, it was around this time she was evaluated and treated for a sinus infection. REVIEW OF SYSTEMS A comprehensive review of systems was negative except for: Gastrointestinal: nausea OBJECTIVE VITAL SIGNS Temperature: [37.2 ??C] 37.2 ??C Blood Pressure: (155-166)/(67-103) 166/67 Weight: [71.6 kg] 71.6 kg Pulse Rate: [118] 118 PHYSICAL EXAM Constitutional General: She is not in acute distress. Appearance: Normal appearance. She is well-groomed. She is not ill-appearing. Pelvic exam was performed with patient supine. Clitoris: Clitoris is normal. Perineum: The perineum is normal. Vagina: The vagina is normal. Cervix: The cervix is normal. ThinPrep specimen collected from the cervix. Prolapse: well-supported anterior, apical, posterior, vaginal guzman. Uterus: The uterus is normal. The uterus is smooth. Lymphadenopathy System normal. Neurological Mental Status: She is alert. Skin General: Skin is warm and dry. Psychiatric Behavior: Behavior is cooperative. DIAGNOSTICS Lab Results Component Value Date HCGPREGUR Negative 11/24/2021 ASSESSMENT / PLAN #1 Test test was negative today. She was not confident in the result based on home results, therefore we will follow up with serum HCG for complete reassurance. Explained that if the HCG level is <5, she is not currently and her symptoms would be related to something different. She can fo llow up with primary care re: those symptoms as needed. #2 Counseling Control She is not interested in keeping the Nexplanon, but also uncertain of what she would like to use forcontraception. We have agreed to leave the Nexplanon in place until we confirm the status and then she can return from removal and switch to something else as desired, including an IUD. She was given handouts on all methods. She does not want to do Depo and doesn't think she would do well with daily administration. #3 Pap Smear Examination Pap smear collected today. If normal, due in 5 years. She declines STD testing. Grant Jones APRN, Reji.NDany, M.S.N. LOGIST documented in this encounter Miscellaneous Notes Addendum Note - Grant Jones APRN, Reji.N.P., M.S.N. - 11/24/2021 1:15 PM MYCOLOGIST Addended by: GRANT JONES on: 11/29/2021 08:00 AM Modules accepted: Orders LOGIST documented in this encounter Plan of Treatment Not on filedocumented as of this encounter Procedures Procedure Name Priority Date/Time Associated Diagnosis Comme nts THINPREP W/HPV Routine 11/24/2021 4:49 PM Pap Smear Results for this CO-TEST SCREEN MYCOLOGIST Examination procedure are in the results section. HUMAN CHORIONIC Routine 11/24/2021 2:00 PM Test Resu lts for this GONADOTROPIN (HCG), MYCOLOGIST procedur e are in ROBERTA, the results section. HPV WITH GENOTYPING, Routine 11/24/2021 1:53 PM R esults for this PCR, THINPREP MYCOLOGIST procedure are in the results section. TEST, POCT, Routine 11/24/2021 1:14 PM Samira t Results for this U (LAB) MYCOLOGIST procedure are i n the results section. documented in this encounter Results ThinPrep w/HPV Co-Test Screen (11/24/2021 4:49 PM MYCOLOGIST) Component Value Ref Test Analysis Performed Pathologis t Range Method Time At Signature 11/28/2021 HK 3:47 PM MYCOLOGIST Report DEBRA Boles(ASCP) 11/28/2021 HK electronically 3:47 PM signed by MYCOLOGIST I verify that I have examined all relevant slides/materials for the specimen(s) and rendered or confirmed the diagnosis. Gross Description Received specimen 11/28/2021 HK Y in a ThinPrep 3:47 PM vial. MYCOLOGIST Pap Test Source Cervical/Endocervi 11/28/2021 HKCY lizbeth 3:47 PM MYCOLOGIST Interpretation Cervical/Endocervical ??(ThinPrep): 11/28/2021 HKCY 3:47 PM Satisfactory for Evaluation MYCOLOGIST Negative for Intraepithelial Lesion or Malignancy Shift in seth suggestive of bacterial vaginosis High Risk HPV: ??Negative Negative for High Risk HPV by nucleic acid amplification. The following High Risk HPV types were not detected: 16, 18, 31, 33, 35, 39, 45, 51, 52, 56, 58, 59, 66, and 68. Specimen Anatomical Collection Method Collection Time Receive d Time (Source) Location / / Volume Laterality Varies 11/24/2021 4:49 PM 6:36 (Cervix/Endocerv MYCOLOGIST AM MYCOLOGIST ix) Narrative This result has an attachment that is no t available. Reji Polanco APRN.N.P., M.S.N. LAB PAP PATHDX ORD ERABLES Performing Organization Address City/State/ZIP Code Phon e Number [facility] [address] [place] [address] [facility] [place] [address] [facility] [address] [facility] (ABNORMAL) hCG (Human Chorionic Gonadotropin), Quantitative, (11/24/2021 2:00 PM MYCOLOGIST) athologist Signature HCG, 6.9 (H) <5 IU/L 11/24/2021 NPRG Quantitative, 2:22 PM MYCOLOGIST , P Comment: Biotin has been identified by the meir toro as a potential interfering substance. ??Higher concentr ations of biotin may be found in multivitamins, hair/nail supple ments, and workout supplements. ??If the result does not [facility] clinical observations, repeat testing after patient refrains fr om the use of supplements for at least 12 hours. Specimen Anatomical Collection Method Collection Time Receive d Time (Source) Location / / Volume Laterality Blood (Blood, 11/24/2021 2:00 PM 11/24/19 2:01 Venous) MYCOLOGIST PM MYCOLOGIST Grant Jones APRN, C.N.P., M.S.N. LAB BLOOD ADD-ON Performing Organization Address City/State/ZIP Code Phon e Number [facility]- [address] [place], [place] [address] [place] [address] [place] [address] [place] [address] [place] HPV with Genotyping, PCR, ThinPrep (11/24/2021 1:53 PM MYCOLOGIST) athologist Signature HPV with Negative Negative 11/25/2021 MKTO Genotyping, 3:27 PM MYCOLOGIST ThinPrep, PCR Comment: Negative for high risk HPV by nucleic ac id amplification. ??The following high risk HPV types were not detected: 16, 18, 31, 33, 35, 39, 45, 51, 52, 56, 58, 59, 66, and 68 Specimen Anatomical Collection Method Collection Time Receive d Time (Source) Location / / Volume Laterality Varies 11/24/2021 1:53 PM 6:36 MYCOLOGIST AM MYCOLOGIST Reji Polanco APRN.N.Anna., M.S.N. LAB MICROBIOLOGY - GENERAL ORDERABLES Performing Organization Address City/[facility]/ZIP Code Phon e Number [facility] [address] [place] [address] [place] [address] [facility] in [place] [address] [facility] Test, POCT, Urine (lab) (11/24/2021 1:14 PM MYCOLOGIST) P athologist Signature Negative 11/24/2021 NPRG Test, POCT, U 1:21 PM MYCOLOGIST Specimen Anatomical Collection Method Collection Time Receive d Time (Source) Location / / Volume Laterality Urine (Urine, 11/24/2021 1:14 PM 11/24/19 1:14 Clean Catch) MYCOLOGIST PM MYCOLOGIST Grant Jones APRN, C.N.P., M.S.N. LAB POCT ORDERABLE S - DEVICE Performing Organization Address City/[facility]/ZIP Code Phon e Number [facility]- [address] [place] [address] [place] [address] LAB NPRG [facility] [place] [address] documented in this encounter Visit Diagnoses Diagnosis Test - Primary Counseling Control Pap Smear Examination documented in this encounter Care Teams Subgrade Tester Relationship Specialty Start Date End Date Ben Arce M.D. PCP - General Family Medicine 01/13/[address] [place] [phone] documented as of this encounter
--- OUTSIDE RECORDS SUMMARY | 2022-05-31 00:59 | XMS_ITS | Encounter Summary ---
:1990 Author Organization [facility] Address [address] [place] [address] Care Team Providers Name Role Phone Ben Arce M.D. Primary Care Provider Reason for Visit Reason Comments Med Refill Encounter Details Date Type Department Care Team Description 11/24/2021 Refill Department of Family Medicine Ben Maynard M.D. Med Refill in [facility] [address] [place] [phone] (Wo rk) Social History Tobacco Use Types [...] or relatives? How often do you attend restorationism or Never 2021 jain services? Do you belong to any clubs or No 11/20/2021 organizations such as restorationism groups, unions, fraternal or athletic groups, or [...] at Date Recorded Female 12/02/2021 5:19 PM PAPER BALER documented as of this encounter Plan of Treatment Not on filedocumented as of this encounter Visit Diagnoses Not on filedocumented in this encounter Care Teams Wafer Abrading Machine Tender Relationship Specialty Start Date End Date Ben Arce M.D. PCP - General Family Medicine 01/13/[address] [place] [phone] documented as of this encounter
--- OUTSIDE RECORDS SUMMARY | 2022-05-31 00:59 | XMS_ITS | Encounter Summary ---
:1990 Author Organization [facility] Address [address] [place] [address] Care Team Providers Name Role Phone Ben Arce M.D. Primary Care Provider Reason for Visit Reason Comments Med Refill Encounter Details Date Type Department Care Team Description 05/23/2021 Refill Department of Family Medicine Ben Maynard M.D. Med Refill in [facility] [address] [place] [phone] (Wo rk) Social History Tobacco Use Types [...] or relatives? How often do you attend rastafarian or Never 2021 mormon services? Do you belong to any clubs or No 11/20/2021 organizations such as rastafarian groups, unions, fraternal or athletic groups, or [...] at Date Recorded Female 12/02/2021 5:19 PM PEER FINANCIAL COUNSELOR documented as of this encounter Miscellaneous Notes Telephone Encounter - Rylie Le RMaribellMKalpesh - 05/23/2021 1:08 PM CDT Medication Name: cetirizine Last Office Visit: 05/18/21 Future Office Visit: none Last Blood Pressure: (02915) 05/18/21 Last Set of Labs: 01/13/21 Patient is restricted to Dr. Ritter for all refills documented in this encounter Plan of Treatment Not on filedocumented as of this encounter Visit Diagnoses Diagnosis Rhinitis Allergic documented in this encounter Care Teams Sas Programmer Relationship Specialty Start Date End Date Ben Arce M.D. PCP - General Family Medicine 01/13/[address] [place] [phone] documented as of this encounter
--- OUTSIDE RECORDS SUMMARY | 2022-05-31 00:59 | XMS_ITS | Encounter Summary ---
:1990 Author Organization [facility] Address [address] [place] [address] Care Team Providers Name Role Phone Ben Arce M.D. Primary Care Provider Reason for Visit Reason Comments Hand Injury Medical Information Encounter Details Date Type Department Care Team Description 02/11/2022 Nurse Triage Department of [facility] Rylie Hightower Hand Injury; Medical Medicine in [place], [place] [address] [facility] [address] [place] [phone] Social History Tobacco Use Types Packs/Day Years [...] or relatives? How often do you attend quaker or Never 2021 congregation services? Do you belong to any clubs or No 11/20/2021 organizations such as quaker groups, unions, fraternal or athletic groups, or [...] place to sleep or slept in a long-term (including now)? Education Answer Date Recorded What is the highest level of school you have completed or 12 th grade 05/17/2021 the highest degree you have received? Sex Assigned at Date Recorded Female 12/02/2021 5:19 PM VESSEL SPECIALIST documented as of this encounter Miscellaneous Notes Telephone Encounter - Rylie Hightower R.N. - 02/11/2022 9:13 PM CDT Chief Complaint / Reason for Call Patient is a 31 y.o. female calling regarding Hand Injury and Medical Information. Assessment Concern: Right hand shut in car door today. Reports right hand swelling and pain located on whole right side of hand and pinkie finger. Notes 5th finger somewhat crooked and unable to straighten. Numbness and tingling in right wrist; I can't feel my pinkie. Notes 14 weeks . Present for: 6 hours prior to call Home cares tried: Ice, Tylenol, elevation Calling to request: Nurse advice The recommended disposition is Go to ED Now. Care Advice Patient/Caregiver understands and will follow care advice?: Yes, able to teach back NOTHING BY MOUTH: * Do not eat or drink anything for now. * (Reason: condition may need surgery and general anesthesia) REMOVE RINGS: * If possible, remove any rings or jewelry from the fingers of the injured hand. * (Reason: swelling from injury may cause ring to become trapped on finger, the ring then cuts off circulation to the finger) Reason for Disposition ??? Looks like a dislocated joint (e.g., crooked or deformed) Protocols used: HAND AND WRIST [id number] documented in this encounter Plan of Treatment Not on filedocumented as of this encounter Visit Diagnoses Not on filedocumented in this encounter Additional Health Concerns Assessment Noted Time PHQ-9 Depression Total Score: 4 12/20/2021 10:52 AM CS T documented as of this encounter Care Teams In Flight Refueling Craftsman Relationship Specialty Start Date End Date Ben Arce M.D. PCP - General Family Medicine 01/13/[address] [place] [phone] documented as of this encounter
--- OUTSIDE RECORDS SUMMARY | 2022-05-31 00:59 | XMS_ITS | Encounter Summary ---
:1990 Author Organization [facility] Address [address] [place] [address] Care Team Providers Name Role Phone Ben Arce M.D. Primary Care Provider Encounter Details Date Type Department Care Team Description 11/24/2021 Orders Only Department of Robert, Erika Hammer, Abnormal L aboratory Obstetrics and RUNNER MAN, C.N.P., Results (Samina pendleton Dx) Gynecology in [place], [place] [address] [place] [phone] Social History Tobacco Use Types Packs/Day Years [...] or relatives? How often do you attend pentecostal or Never 2021 orthodoxy services? Do you belong to any clubs or No 11/20/2021 organizations such as pentecostal groups, unions, fraternal or athletic groups, or [...] at Date Recorded Female 12/02/2021 5:19 PM FACULTY RESEARCH PHYSICIAN documented as of this encounter Plan of Treatment Not on filedocumented as of this encounter Results (ABNORMAL) hCG (Human Chorionic Gonadotropin), Quantitative, (11/28/2021 4:00 PM FACULTY RESEARCH PHYSICIAN) P athologist Signature HCG, 94 (H) <5 IU/L 11/28/2021 NPRG Quantitative, 7:47 PM FACULTY RESEARCH PHYSICIAN , P Comment: Biotin has been identified by the meir toro as a potential interfering substance. ??Higher concentr ations of biotin may be found in multivitamins, hair/nail supple ments, and workout supplements. ??If the result does not ma [facility] clinical observations, repeat testing after patient refrains fr om the use of supplements for at least 12 hours. Specimen Anatomical Collection Method Collection Time Receive d Time (Source) Location / / Volume Laterality Blood (Blood, 11/28/2021 4:00 PM 11/28/19 22 6:56 Venous) FACULTY RESEARCH PHYSICIAN PM FACULTY RESEARCH PHYSICIAN Erika Jones APRN, C.N.P., M.S.N. LAB BLOOD ADD-ON Performing Organization Address City/State/ZIP Code Phon e Number [facility]- [address] [place], [place] [address] [place] [address] [place] [address] [facility] [address] [place] documented in this encounter Visit Diagnoses Diagnosis Abnormal Laboratory Results - Primary documented in this encounter Care Teams Practice Professional Relationship Specialty Start Date End Date Ben Arce M.D. PCP - General Family Medicine 01/13/[address] [place] [phone] documented as of this encounter
--- OUTSIDE RECORDS SUMMARY | 2022-05-31 01:00 | XMS_ITS | Encounter Summary ---
:1990 Author Organization [facility] Address [address] [place] [address] Care Team Providers Name Role Phone Elsewhere, Pcp Primary Care Provider Unavailable Reason for Visit Reason Comments Facial Pain Pt presents for eval of sinu s pain, congestion, throat pain and claire ear pain. sick for 3 1/2 weeks . No known fever. Using OTC sudafed and afrin without relief. Encounter Details Date Type Department Care Team Description 09/09/2019 Emergency [facility] Sigrid Forbes (Primary Dx); Department D, M.D. Infection Upper Respiratory Viral [address] [place] [facility] [place] [phone] (Wo rk) Social History Tobacco Use Types [...] do you attend buddhism or Never 2021 gnosticist services? Do you belong to any clubs [...] or slept in a fdc (including now)? Sex Assigned at Date Recorded Female 12/02/2021 5:19 PM SPECIAL MAKEUP FX ARTIST INSTRUCTOR documented as of this encounter Last Filed Vital Signs Vital Sign Reading Time Taken Comments Blood Pressure 135/101 09/09/2019 9:30 AM SPECIAL MAKEUP FX ARTIST INSTRUCTOR Pulse 75 09/09/2019 9:30 AM SPECIAL MAKEUP FX ARTIST INSTRUCTOR Temperature 36 ??C (96.8 ??F) 09/09/2019 9:30 AM SPECIAL MAKEUP FX ARTIST INSTRUCTOR Respiratory Rate 18 09/09/2019 9:30 AM SPECIAL MAKEUP FX ARTIST INSTRUCTOR Oxygen Saturation 96% 09/09/2019 9:30 AM SPECIAL MAKEUP FX ARTIST INSTRUCTOR Inhaled Oxygen Concentration - - Weight 72.6 kg (160 lb) 09/09/2019 9:39 AM SPECIAL MAKEUP FX ARTIST INSTRUCTOR Height 152.4 cm (5') 09/09/2019 9:39 AM SPECIAL MAKEUP FX ARTIST INSTRUCTOR Body Mass Index 31.25 09/09/2019 9:39 AM SPECIAL MAKEUP FX ARTIST INSTRUCTOR documented in this encounter Discharge Instructions Discharge InstructionsTomSigrid remy M.D. - 09/09/2019 9:41 AM SPECIAL MAKEUP FX ARTIST INSTRUCTOR Return to the Emergency Department if you develop weakness, numbness, confusion, lightheadedness, fever, or with any other new or concerning symptoms. Take antibiotics as prescribed. Complete the entire 5 days. Trial nasal rinses and other remedies as discussed Please follow up with your primary care doctor in the next 1-7 days regarding your visit to the Emergency Room. If you do not have a doctor, you can make an appointment at our local clinic by calling the appointment center at [phone]. Thank you for choosing [facility] for your care. It was a pleasure taking care of you today in our Emergency Department. IAL MAKEUP FX ARTIST INSTRUCTOR AttachmentsThe following attachments cannot be sent through Care Everywhere. Sinus Rinse [id number]-ve-[id number] (Latvian)Sinusitis Adult Wajp-qr-Noev (Latvian) documented in this encounter Medications at Time of Discharge Medication Sig Dispensed Refills Start Date End Date acetaminophen (TYLENOL) Take 1,000 mg by 0 500 mg tablet mouth every 6 (six) hours as needed for pain. amoxicillin-pot Take 1 tablet by 10 tablet 0 09/09/2019 clavulanate (AUGMENTIN) mouth every 12 875-125 mg per tablet (twelve) hours for 5 days. etonogestreL (NEXPLANON) 1 each by implant 0 12/2112/20/2021 68 mg subdermal implant route continuously. ibuprofen (ADVIL,MOTRIN) Take 600 mg by 0 12/20/2021 600 mg tablet mouth every 6 (six) hours as needed for pain. documented as of this encounter ED Notes Sigrid Forbes M.D. - 09/09/2019 9:41 AM CST [facility] EMERGENCY DEPARTMENT ENCOUNTER Patient Name: Lulu Mata Birthdate 1990 Date of evaluation: 09/09/2019 Provider: Sigrid Forbes M.D. PCP: Primary Care Physician SUBJECTIVE CHIEF COMPLAINT/REASON FOR VISIT Facial Pain (Pt presents for eval of sinus pain, congestion, throat pain and claire ear pain. sick for 3 1/2 weeks. No known fever. Using OTC sudafed and afrin without relief. ) HISTORY OF PRESENT ILLNESS Lulu Mata is a 29 y.o. female with a history of mild asthma and self- reported history of frequent sinus infections presenting today with 4 weeks of sinus pain. She says she did not go to the clinicsooner as she has been told in the past that she needs to have the symptoms for 4 weeks before she is able to have antibiotics. She notes that she has had a postnasal drip, sinus pressure, sinus headaches, nasal drainage for which she is taking both Sudafed and Afrin. She has also had associated sneezing and cough mostly in the morning. She is not having any shortness of breath or productive cough. No nausea vomiting diarrhea other associated symptoms. 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 She has not had any fevers at home. She had called work today due to her sinus discomfort, so presents today looking for antibiotics forher sinusitis and also for a work note. She does in addition to the above symptoms she has had a scratchy throat and some ear pressure at times, right greater than left REVIEW OF SYSTEMS Constitutional: Negative for fever. Skin: Positive for skin rash. Eyes: Negative for visual problems. ENT: Negative for difficulty hearing. Respiratory: Positive for dry cough. Negative for dyspnea. Cardiovascular: Negative for chest pain, pressure or tightness. Gastrointestinal: Negative for abdominal (belly) pain or cramping, diarrhea, nausea and vomiting. Genitourinary: Negative for pain with urination. Neurological: Positive for headaches. MEDICAL HISTORY Past Medical History: Diagnosis Date ??? Asthma NOS ??? Diabetes Mellitus Gestational 09/21/2012 Overview: Diet-controlled SURGICAL HISTORY Past Surgical History: Procedure Laterality Date ??? WISDOM TOOTH EXTRACTION FAMILY HISTORY No family history on file. SOCIAL HISTORY Social History Tobacco Use ??? Smoking status: Never Smoker ??? Smokeless tobacco: Never Used Substance Use Topics ??? Alcohol use: No ??? Drug use: No OBJECTIVE VITAL SIGNS BP (!) 135/101 (BP Location: Right arm, Patient Position: Sitting) Pulse 75 Temp 36 ??C (Temporal) Resp 18 Ht 152.4 cm Wt 72.6 kg SpO2 96% BMI 31.25 kg/m?? PHYSICAL EXAMINATION Vitals signs and nursing note reviewed. Constitutional Appearance: She is not ill-appearing. HENT Head: Normocephalic. Right Ear: Tympanic membrane and external ear normal. Left Ear: Tympanic membrane and external ear normal. Nose: Congestion present. Comments: Pain with palpation over bilateral frontal sinuses Mouth/Throat: Mouth: Mucous membranes are moist. Pharynx: No oropharyngeal exudate or posterior oropharyngeal erythema. Eyes Pupils: Pupils are equal, round, and reactive to light. Neck Musculoskeletal: Normal range of motion. Cardiovascular Rate and Rhythm: Normal rate and regular rhythm. Pulses: Normal pulses. Heart sounds: Normal heart sounds. Pulmonary Effort: Pulmonary effort is normal. Breath sounds: Normal breath sounds. Abdominal Palpations: Abdomen is soft. Tenderness: There is no tenderness. Musculoskeletal General: No swelling. Lymphadenopathy Cervical: No cervical adenopathy. Skin General: Skin is warm. Capillary Refill: Capillary refill takes less than 2 seconds. Neurological General: No focal deficit present. Mental Status: She is alert. Psychiatric Mood and Affect: Mood normal. DIAGNOSTICS EMERGENCY DEPARTMENT COURSE and DIFFERENTIAL DIAGNOSIS/MDM: Patient was given the following medications: Medications - No data to display MDM: 29-year-old female presenting with URI symptoms, now with nasal congestion. She reports a history offrequent sinus infections and presents now as she says she is at the point where she needs antibiotics. She does have sinus headache, pain with palpation over the sinuses and some discharge noted from her nose. At this time I feel there is a chance that this is now converted to bacterial sinusitis, Augmentin was prescribed. I did discuss with her that given her frequent sinusitis, she will need to follow up in Primary Care for discussion on if she needs to have any ENT evaluation. She overall appears well in the room, without fever or other abnormalities. She has had a dry cough and I do not feel there is a benefit from a chest x-ray. Posterior oropharynx is normal, without evidence of a deep space infection. She does say that her main reason for visiting today is that she had a call in sick to work due to the cold air exposure she gets at work, and she is eating a work note for that. This was provided. I did encourage her to follow up later this week in primary care if she is not improving. She is made aware the risks for antibiotics. She is happy, laughing in the room in good spirits and appropriate for continued outpatient management Final Diagnoses: as of Sep 09 947 Sinusitis Infection Upper Respiratory Viral FINAL IMPRESSION: 1. Sinusitis 2. Infection Upper Respiratory Viral DISPOSITION/PLAN: PATIENT REFERRED TO: Elsewhere, Pcp In 1 week As needed, If symptoms worsen DISCHARGE MEDICATIONS: New Prescriptions AMOXICILLIN-POT CLAVULANATE (AUGMENTIN) 875-125 MG PER TABLET Take 1 tablet by mouth every 12 (twelve) hours for 5 days. DISCONTINUED MEDICATIONS: Discontinued Medications No medications on file Minoo Vides Shannon D, M.D. 09/09/19946 IAL MAKEUP FX ARTIST INSTRUCTOR documented in this encounter Plan of Treatment Not on filedocumented as of this encounter Visit Diagnoses Diagnosis Sinusitis - Primary Infection Upper Respiratory Viral documented in this encounter Care Teams Venetian Blind Mechanic Relationship Specialty Start Date End Date Elsewhere, Pcp PCP - General Family Medicine 01/08/18 01/12/21 documented as of this encounter
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
--- OUTSIDE RECORDS SUMMARY | 2022-05-31 01:00 | XMS_ITS | Encounter Summary ---
:1990 Author Organization [facility] Address [address] [place] [address] Care Team Providers Name Role Phone Ben Arce M.D. Primary Care Provider Reason for Visit Reason Comments Other swollen and sore throat and fluid in ears right more than the left. was just here on Sunday and saw Donya for her arm Encounter Details Date Type Department Care Team Description 01/13/2021 Office Visit Department of Ben Metzger M.D. Sore Throat (Primary Medicine in [place] [address] Dx) [place], [place] [address] [place] [address] [place], [place] [phone] (Work) [phone] Social History Tobacco Use Types Packs/Day Years [...] or relatives? How often do you attend oriental orthodox or Never 2021 restorationist services? Do you belong to any clubs or No 11/20/2021 organizations such as oriental orthodox groups, unions, fraternal or athletic groups, [...] or slept in a intermediate (including now)? 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 - 01/13/2021 2:00 PM CDT SUBJECTIVE CHIEF COMPLAINT / REASON FOR VISIT Lulu Mata is a 30 y.o. female who presents for evaluation of Other (swollen and sore throat and fluid in ears right more than the left. was just here on Sunday and saw Donya for her arm ). HISTORY OF PRESENT ILLNESS 30 year old female presents today for sore throat and ears pain, sinus pressure, nasal discharge clear, no cough, no fever. Denies COVID exposure. The following portions of the patient's history were reviewed and updated as appropriate: allergies,current medications, medical history and problem list. OBJECTIVE BP 126/78 (BP Location: Right arm, Patient Position: Sitting, Cuff Size: Regular) Pulse 86 Temp 36.3 ??C (Temporal) Resp 18 Wt 72.5 kg SpO2 99% BMI 31.39 kg/m?? PHYSICAL EXAM Constitutional Appearance: Normal appearance. HENT Right Ear: No swelling. A middle ear effusion is present. Tympanic membrane is not erythematous. Left Ear: No swelling. A middle ear effusion is present. Tympanic membrane is not erythematous. Nose: Right Sinus: Maxillary sinus tenderness present. Left Sinus: Maxillary sinus tenderness present. Mouth/Throat: Mouth: Mucous membranes are moist. Pharynx: Oropharynx is clear. No pharyngeal swelling, oropharyngeal exudate, posterior oropharyngeal erythema or uvula swelling. Neurological Mental Status: She is alert. Recent Results (from the past 24 hour(s)) Streptococcus Group A, Molecular Detection, PCR, Throat Collection Time: 01/13/21 2:13 PM Specimen: Throat; Varies Result Value Group A Strep PCR, Throat Negative ASSESSMENT / PLAN #1 Sore Throat Step test done, likely viral infection. Watchful waiting planned. - Streptococcus Group A, Molecular Detection, PCR, Throat She started Zyrtec for ear fluids. documented in this encounter Plan of Treatment Not on filedocumented as of this encounter Procedures Procedure Name Priority Date/Time Associated Diagnosis Comme nts GROUP A STREP PCR, Routine 01/13/2021 2:13 PM Sore Throat Res ults for this THROAT CDT procedure are i n the results section. documented in this encounter Results Streptococcus Group A, Molecular Detection, PCR, Throat (01/13/2021 2:13 PM CDT) P athologist Signature Group A Strep Negative Negative 01/13/2021 MKTO PCR, Throat 5:33 PM CDT Specimen Anatomical Collection Method Collection Time Receive d Time (Source) Location / / Volume Laterality Varies (Throat) 01/13/2021 2:13 PM 2020 5:06 CDT PM CDT Ben Arce M.D. LAB MICROBIOLOGY - GENERAL O RDERABLES Performing Organization Address City/State/ZIP Code Phon e Number [facility]- [address] [place] [id number] [place] [address] [address] documented in this encounter Visit Diagnoses Diagnosis Sore Throat - Primary documented in this encounter Care Teams Exhaust And Muffler Fitter Relationship Specialty Start Date End Date Ben Arce M.D. PCP - General Family Medicine 01/13/[address] [place] [phone] documented as of this encounter
--- OUTSIDE RECORDS SUMMARY | 2022-05-31 01:00 | XMS_ITS | Encounter Summary ---
:[address] [facility] Address [address] [place] [address] Care Team Providers Name Role Phone Elsewhere, Pcp Primary Care Provider Unavailable Reason for Referral Outpatient (Routine) - Canceled Specialty Diagnoses / Procedures Referred By Contact Refer red To Contact Diagnoses Numbness Ben Arce M.D. External, Referring [address] [place] [phone] Referral ID Status Reason Start Date Expiration Date Visits V isits Requested Authorized [id number] Canceled No 08/26/2019 08/25/2020 1 1 access/unsa tisfactory access FF WORKER Reason for Visit Reason Onset Date Comments Communication 08/26/2019 Encounter Details Date Type Department Care Team Description 08/26/2019 Clinical Communication Department of Ben Metzger , Communication Medicine [place] [address] [place] [phone] Social History Tobacco Use Types Packs/Day Years [...] do you attend muslim or Never 2021 worship services? Do you belong to any clubs or No 11/20/2021 organizations such as muslim groups, unions, fraARX or athletic groups, or school groups? How [...] place to sleep or slept in a snf (including now)? 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 FF WORKER Telephone Encounter - Sridhar Espinal - 08/27/2019 8:24 AM CST [place], can you work on this please? Thank you!! FF WORKER Telephone Encounter - Ben Arce M.D. - 08/26/2019 3:36 PM CST External referral order placed. Please help her to find nearby neurology. None in [place], she has travel to [place] or [facility]. Thanks. FF WORKER Telephone Encounter - Nadya Koehler, RMaribellN. - 08/26/2019 12:19 PM SCRUFF WORKER Can an outside referral be entered for neurology for sooner appointment? Thank you. FF WORKER Telephone Encounter - Rylie Juárez - 08/26/2019 12:[address] Daiana Booth does not have an opening in [place] until December and Lulu cannot [facility]. Can a referral be placed for a neurologist that is closer? FF WORKER documented in this encounter Plan of Treatment Not on filedocumented as of this encounter Visit Diagnoses Diagnosis Numbness - Primary documented in this encounter Care Teams Senior Ui Ux Developer Relationship Specialty Start Date End Date Elsewhere, Pcp PCP - General Family Medicine 01/08/18 01/12/21 documented as of this encounter
--- OUTSIDE RECORDS SUMMARY | 2022-05-31 01:00 | XMS_ITS | Encounter Summary ---
:1990 Author Organization [facility] Address [address] [place] [address] Care Team Providers Name Role Phone Elsewhere, Pcp Primary Care Provider Unavailable Reason for Referral MRI/CAT/PET Scan (Routine) - Closed Specialty Diagnoses / Procedures Referred By Contact Refer red To Contact Radiology Diagnoses Pain Cervical Esther Andrea APRN, [facility] Region Procedures CT Thoracic Spine without IV Contrast C.N.P., D.N.P. [address] [place] [address] Referral ID Status Reason Start Date Expiration Date Visits Requ ested Visits Authorized [id number] Closed 08/01/2019 07/31/2020 1 1 Reason for Visit MRI/CAT/PET Scan (Routine) - Closed Specialty Diagnoses / Procedures Referred By Contact Refer red To Contact Radiology Diagnoses Pain Cervical Emre, FATOU Santana, [facility] Region Procedures CT Thoracic Spine without IV Contrast C.N.P., D.N.P. [address] [place] [address] Referral ID Status Reason Start Date Expiration Date Visits Requ ested Visits Authorized [id number] Closed 08/01/2019 07/31/2020 1 1 Encounter Details Date Type Department Care Team Description 08/01/2019 Hospital Encounter Department of Radiology Eliazar Andrea, [place] Cervical [place] APRN C.N.P., [address] [facility] [place], [place] [address] [place] [address] [place], [place] [phone] Social History Tobacco Use Types Packs/Day Years [...] do you attend nondenominational or Never 2021 anglican services? Do you belong to any clubs [...] place to sleep or slept in a prison (including now)? 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 acetaminophen (TYLENOL Take by mouth as 0 08/11/2019 ORAL) needed. etonogestreL (NEXPLANON) 1 each by implant 0 12/2112/20/2021 68 mg subdermal implant route continuously. ibuprofen (ADVIL,MOTRIN) Take 600 mg by 0 12/20/2021 600 mg tablet mouth every 6 (six) hours as needed for pain. documented as of this encounter Plan of Treatment Not on filedocumented as of this encounter Procedures Procedure Name Priority Date/Time Associated Comments Diagnosis CT THORACIC SPINE RAD - Routine 08/01/2019 7:27 Pain Cervical Resul ts for this WITHOUT [...] Andrea APRN C.N.P., D.N.P. IMG CT PROCEDURES documented in this encounter Visit Diagnoses Diagnosis Pain Cervical documented in this encounter Care Teams Forest Resource Specialist Relationship Specialty Start Date End Date Elsewhere, Pcp PCP - General Family Medicine 01/08/18 01/12/21 documented as of this encounter
--- OUTSIDE RECORDS SUMMARY | 2022-05-31 01:00 | XMS_ITS | Encounter Summary ---
:1990 Author Organization [facility] Address [address] [place] [address] Care Team Providers Name Role Phone Elsewhere, Pcp Primary Care Provider Unavailable Reason for Visit Reason Comments Sinusitis Encounter Details Date Type Department Care Team Description 01/10/2020 Office Visit Urgent Care, [facility], Sin usitis Acute [place], in [place], FATOU, C.N.P., (Samina pendleton Dx) [place] D.N.P. [address] [place] [phone] Social History Tobacco Use Types Packs/Day Years [...] or relatives? How often do you attend baptist or Never 2021 latter day services? Do you belong to any clubs or No 11/20/2021 organizations such as baptist groups, unions, fraternal or athletic groups, or [...] slept in a group home (including now)? 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 - 01/10/2020 10:45 AM CDT Images from the original note were not included. Patient Education Sinusitis (Rhinosinusitis) Valdovinos Messages 1. The symptoms of sinusitis can greatly affect your quality of life. 2. Your health care provider will work with you to diagnose your condition and recommend treatment based on the type of sinusitis you have. Introduction Sinus infection (sinusitis*) is an infection and inflammation of the lining of one or more of the air-filled spaces in the cheekbones, between the eyes, and in the forehead. (See Figure 1.) These spaces are referred to as the ???paranasal?? (related to the nose) sinuses. Normally, sinuses are a little wet (moist) with a thin layer of mucus. The lining of the nose also has a coating of mucus that collects tiny bits of pollution (dust, bacteria, etc.) as you breathe. Themucus is constantly drained through your nose, back into the throat and down into the stomach. There, acids destroy the bacteria, dust, etc. Most people do not notice the mucus flow because it???s a normal body function. When something causes one or more sinuses to swell (become inflamed) and this blocks the mucus drainage -- or if there is another kind of blockage -- the mucus may pool in the sinuses. There, germs canmultiply, and acute sinusitis can occur. If you have a sinus infection, you may have thick, colored mucus drainage, bad breath, fever, pain in your sinus, cough, stuffy nose, or all of these symptoms. * Many ENT (ear, nose and throat) health care providers use the term ???rhinosinusitis?? instead of???sinusitis?? because sinus infections typically affect the nose as well as the sinuses. (The prefix ???rhino?? refers to the nose.) Types, Causes and Triggers Three types of sinusitis ?? Acute (happens over a short period of time, suddenly): With acute sinusitis, the blockage prevents the fine hairs in the sinuses (cilia) from clearing the mucus out of the sinus. This leads to a collection of mucus in the sinus, which can become infected. By definition, ???acute?? sinusitis refersto a condition that typically lasts less than 4 weeks. (See Figure 2.) ?? Chronic (happens more constantly or consistently): With chronic sinusitis, the lining of the sinuses becomes damaged and thickened, and the cilia no longer help move the mucus. Symptoms typically last 3 months or more. (See Figure 3.) ?? Recurrent acute (happens repeatedly and suddenly): This condition is diagnosed if you have many occasions of acute sinusitis per year with some recovery time between recurrences. Any sinusitis episode could lead to further complications. Fortunately, these happen rarely. Causes of acute sinusitis Acute sinusitis may happen with one of the following conditions: ?? Common cold or allergies ?? Bacterial infection ?? Viral infection ?? Underlying chronic sinusitis, often with nasal polyps (non-cancerous growths in the nose that canblock sinus drainage) ?? A root infection in an upper-jaw molar (tooth) Smoking and air pollution can increase the risk and severity of sinusitis. Causes of chronic sinusitis Chronic sinusitis can be caused by different conditions that lead to inflammation of nose and sinus tissues. Triggers ?? Many diseases and conditions may inflame the lining of the nose or sinuses and lead to sinus blockage. Those diseases and conditions include cystic fibrosis, gastroesophageal reflux disease (GERD), allergic or vasomotor rhinitis, fungus balls, dental infections, autoimmune diseases, and immunodefici ency diseases. If you have questions about these conditions, talk to your health care provider. ?? Mold and certain types of airborne organisms (fungus) may cause immune-system reactions that result in sinus inflammation. Symptoms Sinusitis can cause the following symptoms: ?? Blocked or congested nostrils, which make breathing difficult ?? Drainage of a thick, yellow or greenish discharge from the nose or down the back of the throat ?? Reduced sense of smell or taste ?? Fever ?? Facial pressure and pain, especially in the forehead, temples, cheeks, nose, and behind the eyes ?? Persistent cough ?? Ear or dental pain ?? Sleepiness (fatigue) Diagnosis and Treatment How can you tell if you have a cold, a bad headache (like a migraine) or sinusitis? It can be hard to decide. Diagnosis Though the problem seems to be in the sinuses, migraine symptoms, for example, can be similar to thesymptoms of sinus infections. To make a diagnosis, your health care provider may: ?? Discuss your medical history. ?? Give you a physical examination. ?? Order imaging examinations, such as X-rays or computed tomography (CT) scans. ?? Order laboratory testing on the mucus. ?? Refer you for allergy skin tests. ?? Refer you to an ear, nose and throat specialist. After you are diagnosed, your health care provider will talk to you about which treatment option is suited for your needs. Treatment with medications Acute sinusitis caused by a virus usually ends on its own and typically is not treated with antibiotic. When symptoms last longer than 7 to 10 days, or get worse after starting to improve, there may be anadditional bacterial cause. Many bacterial infections go away (resolve) on their own and typically do not require an antibiotic. However, if symptoms continue or get worse, an antibiotic may be prescribed. Antibiotics only work for bacterial infections, and only a small percentage of acute sinusitis casesare caused by bacteria. Still, most people seen in the [facility] for upper respiratory infectionor sinusitis symptoms are prescribed an antibiotic. The overuse of antibiotics may contribute to bacterial resistance against antibiotics. In other words, bacteria can develop the ability to fight off (resist) the work of antibiotics, the very medicinesthat should help. To help avoid resistance, antibiotics should only be used when symptoms get worse or don???t improve after at least 7 to 10 days. If you test positive for allergies, you may be prescribed medication to reduce the chance of gettingan infection. ?? Corticosteroids reduce inflammation. ?? Decongestants or antihistamines temporarily relieve nasal congestion. Treatment with immunotherapy If allergies are the primary or secondary cause of your sinusitis, treatment that helps you handle (tolerate) the cause of the allergic reactions (allergens) may help. This treatment has many names: allergy shots, allergen desensitization, allergen hyposensitization, and allergen immunotherapy. (Immuno therapy works to improve your infection-fighting [immune] system.) Treatment for recurrent sinusitis If you???ve had sinusitis many times, and the condition continues to occur again (recur) despite good self-care (see ???Tips for Self-Care?? ) and prescription medications, there may be other options. Some of those are: ?? Other medication: This treatment may include cortisone-based medicines (sprays, drops, rinses, pills, or injections); antibiotics; and allergy treatments, including immunotherapy or immune-deficiency treatment. ?? Endoscopic sinus surgery: With this procedure, a rigid tube (endoscope), with an attached light and camera, is used to look at the sinuses. Surgical tools that fit through nostrils are used to gently open and clean the sinus passages. The tools also may remove tissue (small growths, ???polyps?? ) or bone that blocks the nasal passages or sinuses. This procedure allows better breathing and opens the sinus areas so topical medication (sprays, drops and rinses) may reach the infection. (Topical medications are applied to the top or ???outside layer?? of the body surface. In this case, that means the spray, drops or rinse reaches the outside layer of the sinuses, even though that layer is inside the body.) ?? Balloon Sinuplasty???: With this procedure, a tiny balloon is threaded along a wire into the affected sinuses. When inflated, the balloon helps open the sinuses. After the balloon is removed, the sinuses stay open. This typically is the least invasive form of surgical treatment for the sinuses. Treatments for chronic sinusitis If your sinusitis has lasted more than 3 months, your health care provider may consider: ?? Medication: This treatment may include cortisone-based medicines (sprays, drops, rinses, pills, or injections); antibiotics; antifungal treatments; and allergy treatments, including immunotherapy orimmune-deficiency treatment. ?? Endoscopic sinus surgery: See description in ???Treatment for recurrent sinusitis.?? Permanent damage to the sinuses, including buildup of scar tissue, is possible if chronic or recurrent sinusitis is not treated. Tips for Self-Care There are many effective and inexpensive ways to treat symptoms of sinusitis. ?? Flush (irrigate) the nose with a saltwater (saline) solution to help reduce congestion. Flushing also may be used preventatively twice daily, to help clear bacteria that could be present. ?? Drink plenty of fluids to help thin the mucus so it can drain. ?? Steam your sinuses to open them and allow them to drain. To do this, drape a towel over your headand breathe over a bowl of hot water or inhale through your nose during a hot shower. ?? Use humidifiers or misters to add moisture to the air around you and to help drain the mucus. This can be very helpful while you sleep because you stay in the same room breathing the moist air for many hours. Be sure the machine is clean; check any filters it has and replace them as recommended by the wheel fitter. Note: Having your humidity too high (more than 60 percent) could lead to more dust mites and mold inyour house. If you are allergic to dust mites or mold, you could become sicker if your humidity is too high. ?? Avoid alcohol if it causes an increase in your nasal congestion. ?? Do not smoke and avoid secondhand smoke to help reduce the irritation of the nasal and sinus areas (passages). For some people, exercise may help open sinuses and allow easier breathing. Sewj-rmh-lhmckso treatments* In addition to the previous suggestions, you may get relief for nasal and sinus obstruction or discomfort by taking non-prescription, kqic-bpc-xzuflkv (OTC) medications. Many OTC medications combine a decongestant or an antihistamine product with a pain reliever such asacetaminophen (an ingredient found in Tylenol???). * As with any medication, follow label instructions, read the warnings and side- effect information carefully and contact your health care provider if you have questions. If you are taking other medications, talk to your pharmacist or health care provider before treating your sinus symptoms with OTC medications. OTC medications come in several forms: Nasal saline sprays (non-medicated) -- Saline adds moisture to the nasal lining, which thins the secretions and helps flush out infection. It may be used as often as needed as a mist or a rinse. Nasal decongestant sprays (medicated) -- These products help shrink (decongest) the swollen nasal membranes and can temporarily clear nasal passages. A spray typically is best used at the early stages of a common cold or viral infection. It should be used only for 3 to 5 days. Using a spray after thattime frame may lead to a repeating cycle of spraying and congestion (known as rebound congestion), and to a feeling of being dependent on the medication. Decongestant medications -- These medications reduce blood flow to the nasal membranes. This leads to less nasal swelling and congestion, less pressure in the sinuses and head, and less pain. In turn, typically you have improved airflow. These medications may not relieve drippy noses, and they do not treat the underlying cause of the nasal inflammation. Side effects may include light-headedness or over-excitement and increased blood pressure and heart rate. Other medications may interact with oral decongestants, causing side effects. People with high blood pressure or heart problems and those who take other medications should talk to their health care provider before using decongestants. Some decongestants also include a pain reliever (acetaminophenor ibuprofen). Those medications should not be taken with other pain relievers. Antihistamine medications -- OTC antihistamines may be used to relieve allergic symptoms of itching,sneezing and nasal congestion. They also may help stop drainage associated with allergic inflammation. Examples of these are diphenhydramine (Benadryl??? or Genahist???), chlorpheniramine (Chlor-Trimeto n??? or Efidac???), loratidine (Alavert??? or Claraitin???), and clemastine (Tavist??? or Dayhist???). Side effects may include feeling sleepy and fuzzy headed. Antihistamines that do not have those sedative affects are recommended. These usually are advertised as being ???non-drowsy?? or ???non-sedating.?? Antihistamine-decongestant combination products -- Antihistamines and decongestant products often are combined to relieve many symptoms of congestion and drainage and to reduce the side effects of bothproducts. For example, antihistamines often lead to feeling sleepy; decongestants reduce that affect (help make the medication ???non-drowsy?? ). See also information in ???Antihistamine medications?? and ???Decongestant medications,?? above. When to Call Your Health Care Provider Contact your health care provider if any of the following nasal or sinus issues occur: ?? Nasal or sinus symptoms continue for 10 days or more after the start of the flu or a cold. ?? Symptoms get worse 5 to 7 days after you noticed them. ?? Symptoms return soon after it seems that a cold or the flu has gone away. ?? New symptoms develop and you have a known chronic or recurrent sinus condition. ?? Swelling or redness develops around your eyes. ?? You have problems with your vision. ?? You have severe pain with fever and a yellow-santos, pus-like drainage from your nose. For More Information If you have questions after reading this information, contact your health care provider. For more information you may refer to the following websites, which your health care provider does not sponsor or endorse and for which your health care provider does not guarantee the accuracy of the information. These links are provided for general information only and should not be relied upon for personal diagnosis or treatment: ?? National Institutes of Health (NIH): MedlinePlus ?? U.S. Department of Health and Human Services: healthfinder This material is for your education and information only. This content does not replace medical advice, diagnosis or treatment. New medical research may change this information. If you have questions about a medical condition, always talk with your health care provider. ? 2008 [employer] ([facility]). All rights reserved. [id number] documented in this encounter Progress Notes Esther Andrea APRN, C.N.P., D.N.P. - 01/10/2020 10:45 AM CDT SUBJECTIVE CHIEF COMPLAINT / REASON FOR VISIT Sinusitis. HISTORY OF PRESENT ILLNESS Lulu Mata is a 29 y.o. female who presents to the urgent care for evaluation of her sinus symptoms. Patient reports starting with nasal congestion about 3 weeks ago. She has had worsening of her nasal congestion, frontal and sinus pressure for the last several days. She denies any fevers. Home treatments include use of Tylenol combo ibuprofen, Mucinex and Sudafed without any improvement. No recent travels. No known sick contacts. REVIEW OF SYSTEMS A brief review of systems was negative except for that mentioned in the history of present of illness. The patient's social history, medical history, and home medications were reviewed in the electronic medical record. ALLERGIES/CONTRAINDICATIONS Allergies Allergen Reactions ??? No Known Allergies Other (see comments) OBJECTIVE VITAL SIGNS BP (!) 133/93 (BP Location: Right arm, Patient Position: Sitting, Cuff Size: Large) Pulse 109 Temp 36.1 ??C (Temporal) Wt 73 kg SpO2 97% No BMI 30.40 kg/m?? PHYSICAL EXAMINATION General: This patient is alert and in no acute distress. HEENT: Pupils are PERRLA. Conjunctivae clear without hemorrhages or exudates. Auditory canals are normal without erythema or edema. TMs are pearly norton and intact without erythema. Oral cavity is adequately hydrated. Posterior pharynx is without any erythema. Nasal passages are congested with drainage. Frontal and maxillary sinus tenderness to palpation noted. Neck: Supple without lymphadenopathy. Respiratory: Effort is easy. Lung sounds are clear to auscultation. Cardiovascular: S1, S2 are present. Normal rate and rhythm. Musculoskeletal: Grossly intact. No deformities are noted. Skin: Normal color, temperature and moisture. No rashes or lesions are noted. DIAGNOSTICS No results found for this or any previous visit (from the past 24 hour(s)). ASSESSMENT / PLAN #1 Sinusitis Acute Other orders - amoxicillin-pot clavulanate (AUGMENTIN) 875-125 mg per tablet; Take 1 tablet by mouth 2 (two) times a day for 7 days., Starting 01/10/2020, Until 01/17/2020, Normal Complete the full course of antibiotic and use probiotic as discussed. Home care measures for reliefof sinus symptoms as discussed such as steam showers, sinus massage, and Neti Pot use. If unable to use Neti Pot, may benefit from using saline nasal spray a couple times a day. Use a humidifier in theroom for the next 10-14 days. Increase fluid intake. Get plenty of rest. Follow-up if no improvement in 5-7 days or if new or concerning symptoms develop. Patient verbalized understanding and agrees with this plan. No further needsat this time. Electronically signed by: Esther Andrae APRN, C.N.P., Helen.N.P. 01/10/20 10:51 AM CDT documented in this encounter Plan of Treatment Not on filedocumented as of this encounter Visit Diagnoses Diagnosis Sinusitis Acute - Primary documented in this encounter Care Teams Possum Trapper Relationship Specialty Start Date End Date Elsewhere, Pcp PCP - General Family Medicine 01/08/18 01/12/21 documented as of this encounter
--- OUTSIDE RECORDS SUMMARY | 2022-05-31 01:00 | XMS_ITS | Encounter Summary ---
:1990 Author Organization [facility] Address [address] [place] [address] Care Team Providers Name Role Phone Elsewhere, Pcp Primary Care Provider Unavailable Encounter Details Date Type Department Care Team Description 01/07/2021 Clinical Communication Department of [facility] Donya Lind [facility] in [facility], C.N.P.[place], [place] D.N.P. [address] [place] [phone] Social History Tobacco Use Types Packs/Day Years [...] or relatives? How often do you attend worship or Never 2021 baptist services? Do you belong to any clubs or No 11/20/2021 organizations such as worship groups, unions, fraternal or athletic groups, or [...] slept in a senior care (including now)? Sex Assigned at Date Recorded Female 12/02/2021 5:19 PM RESIDENT INTERN documented as of this encounter Miscellaneous Notes Telephone Encounter - Rylie Le R.M.A. - 01/07/2021 4:38 PM CDT Patient called and is unable to get her medications that Donya Borjas APRN, C.N.Anna., D.N.P., patient wanted to have Dr. Ritter send the medications in I advised patient that Dr. Ritter is not in the clinic until Sunday and that both those medications are over the counter and patient can ask the pharmacy to show her where they are located the naproxen is by the over the counter pain medications are and zyrtec is over by the allergy medication. Telephone Encounter - Rylie Le R.M.A. - 01/07/2021 4:29 PM CDT Called [facility] back and spoke to Farrah patient is restricted to Dr. Arce and can not get medications from any other providers than Dr. Ritter. Donya Borjas APRN, C.N.Brayan, D.N.P., was advised about this message. Patient will have to get the medication over the counter. Telephone Encounter - Emely Morton - 01/07/2021 4:19 PM CDT Farrah from [facility] , calling.. re: rx for patient Please call [facility] before patient arrives... [phone] documented in this encounter Plan of Treatment Not on filedocumented as of this encounter Visit Diagnoses Not on filedocumented in this encounter Care Teams Nut Tapper Relationship Specialty Start Date End Date Elsewhere, Pcp PCP - General Family Medicine 01/08/18 01/12/21 documented as of this encounter
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
--- OUTSIDE RECORDS SUMMARY | 2022-05-31 01:00 | XMS_ITS | Encounter Summary ---
:[address] [facility] Address [address] [place] [address] Care Team Providers Name Role Phone Elsewhere, Pcp Primary Care Provider Unavailable Reason for Visit Reason Comments Sinus Symptoms ongoing Encounter Details Date Type Department Care Team Description 07/02/2020 Office Visit Urgent Care, [facility], Sin usitis Acute [place], in [place], FATOU, C.N.P., (Samina pendleton Dx) [place] D.N.P. [address] [place] [phone] Social History Tobacco Use Types Packs/Day Years [...] or relatives? How often do you attend jew or Never 2021 caodaism services? Do you belong to any clubs or No 11/20/2021 organizations such as jew groups, unions, fraternal or athletic groups, or [...] place to sleep or slept in a detention (including now)? 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 - 07/02/2020 11:15 AM CDT Images from the original note [...] bacteria. Still, most people seen in the [facility] for upper respiratory infectionor sinusitis symptoms [...] and replace them as recommended by the dural mechanic. Note: Having your humidity too high (more [...] help open sinuses and allow easier breathing. Four-yff-rgdgbah treatments* In addition to the previous suggestions, you may get relief for nasal and sinus obstruction or discomfort by taking non-prescription, ojfw-ord-cnvdcdf (OTC) medications. Many OTC medications combine a [...] with your health care provider. ? 2008 [employer] ([employer]). All rights reserved. [id number] documented in this encounter Progress Notes Esther Andrea APRN, C.NAndi., D.N.P. - 07/02/2020 11:15 AM CDT SUBJECTIVE CHIEF COMPLAINT / REASON FOR VISIT Sinus Symptoms (ongoing). HISTORY OF PRESENT ILLNESS Lulu Mata is a 30 y.o. female who presents to the urgent are for evaluation of upper respiratory/sinus symptoms. Symptoms include nasal congestion, thick drainage, frontal and maxillary sinus pressure. She denies any fevers or chills. Symptoms have been ongoing for more than 2 weeks. She does not report any improvement in her symptoms. She denies any sore throat. She has felt some popping in her ears. She has been using Flonase nasal spray and ynav-hae-pwosmrc decongestant and Tylenol or ibuprofen for symptoms. REVIEW OF SYSTEMS A brief review of systems was negative except for that mentioned in the history of present of illness. The patient's social history, medical history, and home medications were reviewed in the electronic medical record. ALLERGIES/CONTRAINDICATIONS Allergies Allergen Reactions ??? No Known Allergies Other (see comments) OBJECTIVE VITAL SIGNS BP (!) 137/91 (BP Location: Right arm, Patient Position: Sitting, Cuff Size: Regular) Pulse 67 Temp 37.2 ??C (Temporal) Resp 20 Wt 74.7 kg SpO2 97% BMI 31.50 kg/m?? PHYSICAL EXAMINATION General: This patient is alert and in no acute distress. HEENT: Head is atraumatic and normocephalic. Sclera and conjunctivae appear clear without any injection or exudates. PERRLA. EOMs are intact bilateral. Auditory canals are normal without erythema or edema. TMs are pearly norton and intact without erythema. Oral cavity is adequately hydrated. Posterior pharynx is erythematous with drainage present. Nasal mucosa appears erythematous with drainage. Frontal and maxillary sinuses are tender to palpation bilaterally. Neck: Supple. No lymphadenopathy. Respiratory: Effort is easy. Lung sounds are clear to auscultation. Cardiovascular: S1, S2 are present. Normal rate and rhythm. Musculoskeletal: Grossly intact. No deformities are noted. Skin: Normal color, temperature and moisture. No rashes or lesions are noted. DIAGNOSTICS No results found for this or any previous visit (from the past 24 hour(s)). ASSESSMENT / PLAN #1 Sinusitis Acute - amoxicillin-pot clavulanate (AUGMENTIN) 875-125 mg per tablet; Take 1 tablet by mouth 2 (two) times a day for 7 days., Starting Sun07/02/2020, Until Sun07/09/2020, Normal Complete the full course of antibiotic and use probiotic as discussed. Home care measures for reliefof sinus symptoms as discussed such as steam showers, sinus massage, and Neti Pot or saline nasal rinses. Use a humidifier in the room. May use wfxn-div-wzfeotf Flonase to help with congestion. Drink warm liquids throughout the day. COVID testing deferred today per patient. Note for work provided. Follow-up if no improvement in 5-7 days or if new or concerning symptoms develop. Patient verbalized understanding and agrees with this plan. No further needs at this time. Electronically signed by: Esther Andrea APRN, C.N.Brayan, D.N.P. 07/02/20 11:40 AM CDT documented in this encounter Plan of Treatment Not on filedocumented as of this encounter Visit Diagnoses Diagnosis Sinusitis Acute - Primary documented in this encounter Care Teams Supervisor Sunglasses Relationship Specialty Start Date End Date Elsewhere, Pcp PCP - General Family Medicine 01/08/18 01/12/21 documented as of this encounter
--- OUTSIDE RECORDS SUMMARY | 2022-05-31 01:00 | XMS_ITS | Encounter Summary ---
:1990 Author Organization [facility] Address [address] [place] [address] Care Team Providers Name Role Phone Elsewhere, Pcp Primary Care Provider Unavailable Reason for Referral Outpatient (Routine) - Closed Specialty Diagnoses / Procedures Referred By Contact Refer red To Contact Family Medicine Donya Lind APRN, [facility] C.N.P., D.N.P. Referral ID Status Reason Start Date Expiration Date Visits Requ ested Visits Authorized [id number] Closed 01/07/2021 01/07/2022 1 1 Reason for Visit Reason Comments Follow-up Follow up Elbow Encounter Details Date Type Department Care Team Description 01/07/2021 Office Visit Department of Donya Fitzgerald Pain Elbow Left (Primary Dx); Medicine in [facility] FATOU Lu C.N.PMaribell, Rhinitis Allergic [place], [place] D.N.P. 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 - 01/07/2021 4:00 PM CDT SUBJECTIVE CHIEF COMPLAINT/REASON FOR VISIT Chief Complaint Patient presents with ??? Follow-up Follow up Elbow HISTORY OF PRESENT ILLNESS Lulu Mata is a 30 y.o. female who presents for follow-up evaluation of left elbow injury. Initial injury occurred on 12/14, with initial x-rays being negative. There was concern of possible occult fracture and was recommended to have repeat x-rays in 3 weeks for re-evaluation. She was provided withsling for support at work and ROM as tolerated at home. She presents today for follow-up with minimal improvement in pain. She reports ability to move fingers more, but continues to have quite significant pain in the left elbow and forearm with decreased ROM. She continues to use ice and OTC meds for pain management. She works at [employer] and has continued to wear sling at work per previous recommendations. The following portions of the patient's history were reviewed and updated as appropriate: Allergies,Current Medications, Medical History, Surgical History, Social History and Problem List OBJECTIVE VITAL SIGNS BP 126/78 (BP Location: Right arm, Patient Position: Sitting, Cuff Size: Regular) Pulse 82 Temp 36.9 ??C (Temporal) Wt 72.1 kg SpO2 100% BMI 31.21 kg/m?? PHYSICAL EXAMINATION Constitutional General: She is not in acute distress. Appearance: Normal appearance. HENT Head: Normocephalic and atraumatic. Right Ear: External ear normal. A middle ear effusion is present. Left Ear: External ear normal. A middle ear effusion is present. Eyes Conjunctiva/sclera: Conjunctivae normal. Pulmonary Effort: Pulmonary effort is normal. Musculoskeletal Left elbow: She exhibits decreased range of motion. She exhibits no swelling and no deformity. Tenderness found. Radial head and olecranon process tenderness noted. Skin General: Skin is warm and dry. Neurological General: No focal deficit present. Mental Status: She is alert and oriented to person, place, and time. ASSESSMENT / PLAN #1 Pain Elbow Left - PT Evaluate and treat; Future; Expected date: 01/07/2021 - naproxen (NAPROSYN) 500 mg tablet; Take 1 tablet (500 mg total) by mouth 2 (two) times a day as needed for pain (pain)., Starting Sun01/07/2021, Normal -No evidence of fracture on follow-up x-rays performed today. Suspect elbow injury was more likely a sprain/strain injury. -Advised to continue conservative measures with addition of PT to work on ROM and strength. -Revised work restrictions provided. -Follow-up in one month for re-evaluation, sooner if any concerns. #2 Rhinitis Allergic - cetirizine (ZyrTEC) 10 mg tablet; Take 1 tablet (10 mg total) by mouth daily as needed for allergies., Starting Sun01/07/2021, Normal -Complaints of nasal congestion and ear pressure, suspect related to allergies. -No signs of ear infection at this time. -Recommend Flonase and zyrtec for symptom relief. Other orders - Family Medicine office visit (clinic); Future; Expected date: 02/07/2021 We discussed the diagnosis and treatment plan in detail. Her questions were answered and she verbalized understanding of the plan of care as outlined. Donya Lind, SHAKER TENDER, DNP documented in this encounter Plan of Treatment Scheduled Referrals Name Type Priority Associated Diagnoses Order [facility] Family Medicine Outpatient Referral Routine Expec taurus: office visit 02/07/2021 (clinic) (Approximate), Expires: 01/08/2024 documented as of this encounter Visit Diagnoses Diagnosis Pain Elbow Left - Primary Rhinitis Allergic documented in this encounter Care Teams Sagger Soak Relationship Specialty Start Date End Date Elsewhere, Pcp PCP - General Family Medicine 01/08/18 01/12/21 documented as of this encounter
--- OUTSIDE RECORDS SUMMARY | 2022-05-31 01:00 | XMS_ITS | Encounter Summary ---
:1990 Author Organization [facility] Address [address] [place] [address] Care Team Providers Name Role Phone Elsewhere, Pcp Primary Care Provider Unavailable Reason for Visit Reason Comments Vomiting Pt presents w/nausea, vomiti ng and diarrhea onset 2300 yesterday. Encounter Details Date Type Department Care Team Description 11/11/2019 Emergency [facility] Sigrid Forbes ausea And Vomiting (Primary Dx); Department D, M.D. Diarrhea [address] [place] [phone] (Wo rk) Social History Tobacco Use Types [...] do you attend muslim or Never 2021 yarsani services? Do you [...] place to sleep or slept in a fci (including now)? 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 documented as of this encounter Last Filed Vital Signs Vital Sign Reading Time Taken Comments Blood Pressure 112/79 11/11/2019 7:01 AM RAW SCALES OPERATOR Pulse 81 11/11/2019 7:01 AM RAW SCALES OPERATOR Temperature 36.4 ??C (97.5 ??F) 11/11/2019 7:01 AM RAW SCALES OPERATOR Respiratory Rate 16 11/11/2019 7:01 AM RAW SCALES OPERATOR Oxygen Saturation 93% 11/11/2019 7:01 AM RAW SCALES OPERATOR Inhaled Oxygen Concentration - - Weight 71.8 kg (158 lb 4.6 oz) 11/11/2019 5:50 AM RAW SCALES OPERATOR Height 152.4 cm (5') 11/11/2019 5:50 AM RAW SCALES OPERATOR Body Mass Index 30.91 11/11/2019 5:50 AM RAW SCALES OPERATOR documented in this encounter Discharge Instructions Discharge InstructionsToSigrid geronimo M.D. - 11/11/2019 6:51 AM RAW SCALES OPERATOR Return to the Emergency Department/ if he develop fever, right lower quadrant abdominal pain that is persistent, blood in stools, signs of dehydration such as dry mouth, or with any other new or concerning symptoms. Use Zofran for your nausea. Push fluids, aiming for light yellow urine. I would start with only taking in fluids until the vomiting is improved. After that you can start with a bland diet including things like toast, but avoid spicy foods, dairy products and other gastric irritants. It is very important that you wash your hands often while to avoid spread to other people. Please follow up with your primary care doctor in the next 1-7 days regarding your visit to the Emergency Room. If you do not have a doctor, you can make an appointment at our local clinic by calling the appointment center at [phone]. Thank you for choosing [facility] for your care. It was a pleasure taking care of you today in our Emergency Department. SCALES OPERATOR AttachmentsThe following attachments cannot be sent through Care Everywhere. Nausea and Vomiting Adult (Turkish)Diarrhea Adult [id number] (Turkish) documented in this encounter Medications at Time of Discharge Medication Sig Dispensed Refills Start Date End Date acetaminophen (TYLENOL) Take 1,000 mg by 0 500 mg tablet mouth every 6 (six) hours as needed for pain. ondansetron ODT Take 1 tablet (4 mg 15 tablet 0 11/11/2019 11/21/2019 (ZOFRAN-ODT) 4 mg total) by mouth disintegrating tablet every 8 (eight) hours as needed for nausea or vomiting for up to 10 days. etonogestreL (NEXPLANON) 1 each by implant 0 12/2112/20/2021 68 mg subdermal implant route continuously. ibuprofen (ADVIL,MOTRIN) Take 600 mg by 0 12/20/2021 600 mg tablet mouth every 6 (six) hours as needed for pain. documented as of this encounter ED Notes Sigrid Forbes M.D. - 11/11/2019 6:16 AM CST [facility] EMERGENCY DEPARTMENT ENCOUNTER Patient Name: Lulu Mata PCP: Primary Care Physician SUBJECTIVE CHIEF COMPLAINT/REASON FOR VISIT Vomiting (Pt presents w/nausea, vomiting and diarrhea onset 2300 yesterday.) HISTORY OF PRESENT ILLNESS Lulu Mata is a 29 y.o. female with a history of asthma presenting with 7 hours of vomiting and diarrhea. She ate dinner at the [employer] last night. Several different types of food afterwards began to feel unwell. Approximately 4 hours after dinner had vomiting. No blood in the vomit and this was not bilious in nature. She does have some cramping left-sided abdominal pain associated withthe vomiting. Several hours after the vomiting started she began to have diarrhea. This is nonbloodyand nonmucoid in nature. Again cramping type left-sided pain but no significant right-sided upper orlower abdominal pain. No fevers. She did eat there with another friend but has not had any contact see if the friend is sick too. She felt well before eating dinner at the [employer]. She denies any recentabdominal pain, no prior abdominal surgeries, no fevers, no dysuria, no changes in menstrual cycle or other abnormalities. She tells me she did not get much rest last night because she was having vomiting and diarrhea. She has a young son at home and if he woke up this morning and called out for her she realized she was not be able to take care of him due to feeling nauseated still. Tried taking ibuprofen at home with minimal relief, also noted to have had vomiting immediately afterwards. Has still been making urine. Wasin a normal state health prior to this onset last night. REVIEW OF SYSTEMS Constitutional: Positive for loss of appetite. Negative for fever. Skin: Negative for skin rash. Eyes: Negative for visual problems. Respiratory: Negative for dyspnea. Cardiovascular: Negative for chest pain, pressure or tightness. Gastrointestinal: Positive for abdominal (belly) pain or cramping (cramping with vomiting or stooling), diarrhea, nausea and vomiting. Negative for blood in stool. Genitourinary: Negative for pain with urination and frequent urination. Hematologic: Negative for bruises or bleeds easily. Musculoskeletal: Negative for back pain. Neurological: Negative for light-headedness, headaches and weakness in arms or legs. MEDICAL HISTORY Past Medical History: Diagnosis Date [...] use: No OBJECTIVE VITAL SIGNS BP (!) 129/95 (BP Location: Left arm, Patient Position: Sitting) Pulse 80 Temp 36.6 ??C (Temporal) Resp 16 Ht 152.4 cm Wt 71.8 kg SpO2 96% BMI 30.91 kg/m?? PHYSICAL EXAMINATION Vitals signs and nursing note reviewed. Constitutional General: She is not in acute distress. Appearance: She is not ill-appearing or toxic-appearing. HENT Head: Normocephalic. Nose: Nose normal. Mouth/Throat: Mouth: Mucous membranes are moist. Comments: Mucous membranes are plenty moist Eyes Extraocular Movements: Extraocular movements intact. Pupils: Pupils are equal, round, and reactive to light. Neck Musculoskeletal: Normal range of motion. Cardiovascular Rate and Rhythm: Normal rate and regular rhythm. Pulses: Normal pulses. Heart sounds: Normal heart sounds. Pulmonary Effort: Pulmonary effort is normal. Abdominal Palpations: Abdomen is soft. Tenderness: There is no right CVA tenderness, left CVA tenderness, guarding or rebound. Comments: Mild diffuse tenderness, left upper quadrant, but this is quite mild. No right upper quadrant or right lower quadrant tenderness. No rebound or guarding. Reassuring exam Musculoskeletal Normal range of motion. General: No tenderness. Skin General: Skin is warm. Capillary Refill: Normal skin turgor Coloration: Skin is not pale. Findings: No rash. Neurological General: No focal deficit present. Mental Status: She is alert. Motor: No weakness. Gait: Gait normal. Psychiatric Mood and Affect: Mood normal. DIAGNOSTICS LABS: Labs Reviewed - No data to display RADIOLOGY: No orders to display EMERGENCY DEPARTMENT COURSE and DIFFERENTIAL DIAGNOSIS/MDM: Patient was given the following medications: Medications ondansetron ODT disintegrating tablet 8 mg (ZOFRAN-ODT) (8 mg oral Given 11/11/19 0610) MDM: This is a 29-year-old female who had onset of vomiting and diarrhea after eating at a buffet. I mostlikely anticipate that this is a food-borne illness. She had a host of potential sources including potential staph sources in the form of creamy base dishes that were sitting out, also had many different chicken sources opening the door to chicken borne illnesses. Also ate leafy greens. She has not had any stooling here in the department, could consider testing for further clarification at this time I do not feel that she showing any signs of clinically significant food borne illnesses requiring immediate testing and treatment. I also entertained a host of intra-abdominal pathology such as cholecystitis, pancreatitis, peptic ulcer disease, urinary tract infection, nephrolithiasis, appendicitis. Based on the exam and history these or seeming less likely. She is hemodynamically stable and appears to be appropriately hydrated. At this time I do not feel that we need any labs nor do I feel that she is requiring IV fluids. I feel be more beneficial to her if the repeat what home remedies would be with an oral dose of Zofran andp.o. challenge here. We are within the 1st 8 hours of her illness. I did explain to her that while this may be food-borne, especially since she has not talked others who ate the same food, this also may be gastroenteritis. She is young child within the home. Ultimately I stressed the importance of good hand hygiene, pushing hydration and that these should resolve in the next 3 days, ideally before 5 days. If it is consistent in to the week, she should follow up in clinic Urgent Care return here for additional evaluation and consideration of stool testing. We also discussed signs that may represent a ppendicitis cholecystitis or other acute abdominal emergencies and she expressed understanding. ED Course as of Nov 11 654SunNov 11, 2019 0652 Reassessed after Zofran and is tolerating fluids, reports nausea is much improved. Is feeling stable. We discussed discharge home she does feel ready for this. I did tell her that I anticipate neymarwill still have some diarrhea throughout the day today and hopefully less vomiting but vomiting may still occur, she has Zofran prescribed to use at home. Ultimately I think she is appropriate for homemanagement of her illness Final Diagnoses: as of Nov 11 654 Nausea And Vomiting Diarrhea DISPOSITION/PLAN: PATIENT REFERRED TO: Elsewhere, Pcp As needed, If symptoms worsen DISCHARGE MEDICATIONS: New Prescriptions ONDANSETRON ODT (ZOFRAN-ODT) 4 MG DISINTEGRATING TABLET Take 1 tablet (4 mg total) by mouth every 8(eight) hours as needed for nausea or vomiting for up to 10 days. Sigrid Forbes M.D. 11/11/19650 Sigrid Forbes M.D. 11/11/19654 SCALES OPERATOR documented in this encounter Plan of Treatment Not on filedocumented as of this encounter Visit Diagnoses Diagnosis Nausea And Vomiting - Primary Diarrhea documented in this encounter Administered Medications Inactive Administered Medications - up to 3 most recent administrations Medication Order MAR Action Action Date Dose Rate Site ondansetron ODT disintegrating Given 11/11/2019 6:10 AM RAW SCALES OPERATOR 8 mg tablet 8 mg (ZOFRAN-ODT) 8 mg, oral, Once, On Sun11/11/19 at 0605, For 1 dose, When splitting ODT at bedside, handle with gloves and a pill splitter to prevent moisture contact. documented in this encounter Active and Recently Administered Medications Times are shown in RAW SCALES OPERATOR. Scheduled Medication Order 11/09/2019 11/10/2019 11/11/2019 ondansetron ODT disintegrating tablet 8 mg (ZOFRAN-ODT) ([facility]) 0610 (Given - Provider: Tara Brock R.N.) 8 mg, oral, Once, On Sun11/11/19 at 0605 , For 1 dose, When splitting ODT at bedside, handle with gloves and a pill splitter to prevent moisture contact. documented in this encounter Care Teams Pelletising Extruder Operator Relationship Specialty Start Date End Date Elsewhere, Pcp PCP - General Family Medicine 01/08/18 01/12/21 documented as of this encounter
--- OUTSIDE RECORDS SUMMARY | 2022-05-31 01:00 | XMS_ITS | Encounter Summary ---
:[address] [facility] Address [address] [place] [address] Care Team Providers Name Role Phone Elsewhere, Pcp Primary Care Provider Unavailable Reason for Visit Reason Comments Hand Injury pt presents with injury to l eft hand, pt states she was holding onto a door knob yesterday at work when someone pushed the door open and smashed her hand Swelling noted. Encounter Details Date Type Department Care Team Description 12/26/2019 Emergency Comfort Emergency Sigrid Forbes ontusion Hand Initial Department Minoo Cervantes Left (Primary Dx) [address] [place] [facility] [id number] [phone] (Wo rk) Social History Tobacco Use Types [...] or relatives? How often do you attend scientologist or Never 2021 yarsanism services? Do you belong to any clubs or No 11/20/2021 organizations such as scientologist groups, unions, fraternal or athletic groups, or [...] place to sleep or slept in a assisted (including now)? 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 CAR WORKER documented as of this encounter Last Filed Vital Signs Vital Sign Reading Time Taken Comments Blood Pressure 128/90 12/26/2019 10:18 AM MUD CAR WORKER Pulse 78 12/26/2019 10:18 AM MUD CAR WORKER Temperature 37 ??C (98.6 ??F) 12/26/2019 10:18 AM MUD CAR WORKER Respiratory Rate 16 12/26/2019 10:18 AM MUD CAR WORKER Oxygen Saturation 100% 12/26/2019 10:18 AM MUD CAR WORKER Inhaled Oxygen Concentration - - Weight 70.8 kg (156 lb 1.4 oz) 12/26/2019 9:26 AM MUD CAR WORKER Height 155 cm (5' 1.02) 12/26/2019 9:26 AM MUD CAR WORKER Body Mass Index 29.47 12/26/2019 9:26 AM MUD CAR WORKER documented in this encounter Discharge Instructions Discharge InstructionsToSigrid geronimo M.D. - 12/26/2019 9:47 AM MUD CAR WORKER Return to the Emergency Department with any other new or concerning symptoms. Continue to elevate the arm as able. Ice for at least 20 minutes 4 times a day. Use Clive wrap to helpwith compression. You can take 400mg of Ibuprofen (Motrin, Advil) by mouth with food every 6-8 hours for pain (no morethan 3200mg in 24hrs). You may also take 650-1000mg of Acetaminophen (Tylenol) along with the Ibuprofen. Take no more than 3000mg in 24hrs and write down the times you are taking both medications to ensure appropriate time in between doses. Please follow up with your primary care doctor in the next 1-7 days regarding your visit to the Emergency Room. If you do not have a doctor, you can make an appointment at our local clinic by calling the appointment center at [phone]. Thank you for choosing [facility] for your care. It was a pleasure taking care of you today in our Emergency Department. CAR WORKER documented in this encounter Medications at Time of Discharge Medication Sig Dispensed Refills Start Date End Date acetaminophen (TYLENOL) Take 1,000 mg by 0 500 mg tablet mouth every 6 (six) hours as needed for pain. etonogestreL (NEXPLANON) 1 each by implant 0 12/2112/20/2021 68 mg subdermal implant route continuously. ibuprofen (ADVIL,MOTRIN) Take 600 mg by 0 12/20/2021 600 mg tablet mouth every 6 (six) hours as needed for pain. documented as of this encounter ED Notes Sigrid Forbes M.D. - 12/26/2019 9:37 AM CST [facility] EMERGENCY DEPARTMENT ENCOUNTER Patient Name: Lulu Mata PCP: Primary Care Physician SUBJECTIVE CHIEF COMPLAINT/REASON FOR VISIT Hand Injury (pt presents with injury to left hand, pt states she was holding onto a door knob yesterday at work when someone pushed the door open and smashed her hand Swelling noted. ) HISTORY OF PRESENT ILLNESS Lulu Mata is a 29 y.o. female with history of asthma presenting with left hand pain. Yesterday was at work and opening a door when someone else pushed against the door hand was caught between the door handle and a wall. Since that time she has had swelling and pain to the dorsal aspect of the lefthand. She is right-handed. No numbness. No weakness but is painful to range the hand. Took ibuprofenthis morning and tried ice but was post go to work today and the pain was too significant, coming here for further evaluation. No other injuries in the incident. She reports the pain to be a 6/10 primarily on the dorsal aspect of the left hand quite diffuse. REVIEW OF SYSTEMS Hematologic: Negative for bruises or bleeds easily. Musculoskeletal: Positive for muscle pain/stiffness. Neurological: Negative for numbness or shooting pain in hands, arms, legs, or feet and weakness in arms or legs. MEDICAL [...] Drug use: No OBJECTIVE VITAL SIGNS BP 128/90 (BP Location: Right arm, Patient Position: Semi-recumbent) Pulse 78 Temp 37 ??C (Temporal) Resp 16 Ht 155 cm Wt 70.8 kg SpO2 100% No BMI 29.47 kg/m?? PHYSICAL EXAMINATION Constitutional General: She is not in acute distress. Appearance: She is not ill-appearing. HENT Head: Normocephalic and atraumatic. Mouth/Throat: Mouth: Mucous membranes are moist. Cardiovascular Rate and Rhythm: Normal rate. Pulses: Normal pulses. Pulmonary Effort: Pulmonary effort is normal. Musculoskeletal Comments: Localized swelling on the dorsal aspect of the left hand. This is not cross over the carpals or into the fingers. Palpable pulses in the wrist and brisk cap refill. Strength is 5/5 with flexion extension of the fingers and at the wrist. No palpable deformities. No evidence of a subungual hematoma. The sensation is intact throughout. No pain in the snuffbox or with palpation to the wrist. Skin General: Skin is warm. Capillary Refill: Capillary refill takes less than 2 seconds. Neurological General: No focal deficit present. Mental Status: She is alert. Sensory: No sensory deficit. Motor: No weakness. Psychiatric Mood and Affect: Mood normal. DIAGNOSTICS LABS: Labs Reviewed - No data to display RADIOLOGY: DX Hand Left 3 Views Final Result No acute radiographic abnormalities are demonstrated. EMERGENCY DEPARTMENT COURSE and DIFFERENTIAL DIAGNOSIS/MDM: Patient was given the following medications: Medications - No data to display MDM: 29-year-old female presenting with left hand pain after mechanical injury. See below but x-rays negative, exam is reassuring but does show hematoma which I think is the likely source of the pain. Compression ice elevation and follow up if not improving. Patient is in agreement with this plan. Work note provided as requested ED Course as of Dec 26 1051SunDec 26, 2019 0945 I reviewed the hand x-ray do not appreciate any fractures. Radiologist agrees with this. I willoffer an Clive wrap for comfort for compression, continued elevation ice, NSAIDs and Tylenol 944 The pain is diffuse, over the metacarpals more than carpals, no snuffbox tenderness and overallI have low suspicion for radiographically missed fracture. Final Diagnoses: as of Dec 26 1051 Contusion Hand Initial Left DISPOSITION/PLAN: PCP PRN DISCHARGE MEDICATIONS: Discharge Medication List as of 12/26/2019 9:49 AM Sigrid Forbes M.D. 12/26/19 1052 CAR WORKER documented in this encounter Plan of Treatment Not on filedocumented as of this encounter Procedures Procedure Name Priority Date/Time Associated Comments Diagnosis DX HAND LEFT 3 RAD - Semiurgent 12/26/2019 9:39 Result s for this VIEWS (Fast; most ED AM MUD CAR WORKER procedure are in patients; some the results inpatients) section. documented in this encounter Results DX Hand Left 3 Views (12/26/2019 9:39 AM MUD CAR WORKER) Anatomical Region Laterality Modality Upper Extremity, Hand, Musculoskeletal RST LOS, Left Digital Radiography Musculoskeletal ARZ LOS, Muskuloskeletal FLA LOS Specimen (Source) Anatomical Collection Method Collection Time Re ceived Time Location / / Volume Laterality 12/26/2019 9:40 AM MUD CAR WORKER Impressions 12/26/2019 9:41 AM MUD CAR WORKER No acute radiographic abnormalities are demonstrated. Narrative 12/26/2019 9:41 AM MUD CAR WORKER EXAM: DX HAND LEFT 3 VIEWS COMPARISON: None FINDINGS: No fracture nor dislocation is demonstrated. Procedure Note Reginald Ventura M.D. - 12/26/2019Forma tting of this note might be different from the original. EXAM: DX HAND LEFT 3 VIEWS COMPARISON: None FINDINGS: No fracture nor dislocation is demonstrated. IMPRESSION: No acute radiographic abnormalities are demonstrated. Sigrid Forbes M.D. IMG DIAGNOSTIC IMAGING PROCE LUKE documented in this encounter Visit Diagnoses Diagnosis Contusion Hand Initial Left - Primary documented in this encounter Care Teams Commercial Painter Relationship Specialty Start Date End Date Elsewhere, Pcp PCP - General Family Medicine 01/08/18 01/12/21 documented as of this encounter
--- OUTSIDE RECORDS SUMMARY | 2022-05-31 01:00 | XMS_ITS | Encounter Summary ---
:1990 Author Organization [facility] Address [address] [place] [address] Care Team Providers Name Role Phone Ben Arce M.D. Primary Care Provider Encounter Details Date Type Department Care Team Description 01/21/2021 Orders Only [facility] PCP TH Teja Zuniga Jr., M.D. [address] [place] [address] [place] [phone] (Wo rk) Social History Tobacco Use Types [...] or relatives? How often do you attend episcopalian or Never 2021 uatsdin services? Do you belong to any clubs or No 11/20/2021 organizations such as episcopalian groups, unions, fraternal or athletic groups, or [...] place to sleep or slept in a mcc (including now)? 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 PCP - General Family Medicine 01/13/[address] [place] [address] documented as of this encounter
--- OUTSIDE RECORDS SUMMARY | 2022-05-31 01:00 | XMS_ITS | Encounter Summary ---
:1990 Author Organization [facility] Address [address] [place] [address] Care Team Providers Name Role Phone Elsewhere, Pcp Primary Care Provider Unavailable Reason for Visit Reason Comments Amox Encounter Details Date Type Department Care Team Description 10/05/2020 Clinical Communication Department of Family Aguila Arias M.D. [facility] Medicine in [place] [address] [place], [place] [address] [facility] [address] [place], [place] [phone] (Work) [phone] Social History Tobacco Use Types Packs/Day Years [...] or relatives? How often do you attend rastafari or Never 2021 mandaeism services? Do you belong to any clubs or No 11/20/2021 organizations such as rastafari groups, unions, fraternal or athletic groups, or [...] slept in a senior living (including now)? Sex Assigned at Date Recorded Female 12/02/2021 5:19 PM LINE TESTER documented as of this encounter Miscellaneous Notes Addendum Note - Aguila Arce M.D. - 10/05/2020 4:11 PM LINE TESTER Addended by: AGUILA ARCE on: 10/05/2020 04:11 PM Modules accepted: Orders TESTER Addendum Note - Dali Bird R.M.A. - 10/05/2020 4:09 PM LINE TESTER Addended by: DALI BIRD on: 10/05/2020 04:09 PM Modules accepted: Orders TESTER Telephone Encounter - Dali Bird R.M.A. - 10/05/2020 4:03 PM LINE TESTER Pt's sister is calling on behalf of sister stating that she is restricted to Dr Arce and needs her amox filled. She saw the dentist today, Dr Kelsea Gamino and he prescribed Amox 500 mg. Take 2 tabs STAT and one tab TID till gone #31. TESTER documented in this encounter Plan of Treatment Not on filedocumented as of this encounter Visit Diagnoses Not on filedocumented in this encounter Care Teams Radioactivity Technician Relationship Specialty Start Date End Date Elsewhere, Pcp PCP - General Family Medicine 01/08/18 01/12/21 documented as of this encounter
--- OUTSIDE RECORDS SUMMARY | 2022-05-31 01:00 | XMS_ITS | Encounter Summary ---
:1990 Author Organization [facility] Address [address] [place] [address] Care Team Providers Name Role Phone Ben Arce M.D. Primary Care Provider Reason for Visit Reason Comments Med Refill Naproxen Encounter Details Date Type Department Care Team Description 02/10/2021 Refill Department of Ben Metzger M.D. Med Refill (Naproxen) Medicine in [place] [address] [place], [place] [address] [place] [address] [place] [address] [phone] Social History Tobacco Use Types Packs/Day Years [...] do you attend confucianism or Never 2021 anglican services? Do you [...] at Date Recorded Female 12/02/2021 5:19 PM BUDGET CONSULTANT documented as of this encounter Miscellaneous Notes Telephone Encounter - Kennedi Mckeon, R.M.A. - 02/10/2021 10:12 AM CDT Medication refill Naproxen Last filled 01/13/21 Last OV 01/13/21, 01/07/21 Future appointment None scheduled documented in this encounter Plan of Treatment Not on filedocumented as of this encounter Visit Diagnoses Diagnosis Pain Elbow Left documented in this encounter Care Teams Slasher Operator Relationship Specialty Start Date End Date Ben Arce M.D. PCP - General Family Medicine 01/13/[address] [place] [address] documented as of this encounter
--- OUTSIDE RECORDS SUMMARY | 2022-05-31 01:00 | XMS_ITS | Encounter Summary ---
:1990 Author Organization [facility] Address [address] [place] [address] Care Team Providers Name Role Phone Elsewhere, Pcp Primary Care Provider Unavailable Reason for Visit Reason Comments Arm Injury pt presents with left arm (e lbow area) pain after falling this morning around 0730. Pt fell outside on icy pavement. No other injuries. Pt did work all day at [email or web address]. Encounter Details Date Type Department Care Team Description 12/14/2020 Emergency [place] [facility] CalderonBull M, Inj ury Arm Initial Left Department M.D. (Primary Dx) [address] [facility] [place] [phone] Social History Tobacco Use Types Packs/Day Years [...] or relatives? How often do you attend tenriism or Never 2021 church services? Do you belong to any clubs or No 11/20/2021 organizations such as tenriism groups, unions, fraternal or athletic groups, or [...] or slept in a alf (including now)? 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 documented as of this encounter Last Filed Vital Signs Vital Sign Reading Time Taken Comments Blood Pressure 149/105 12/14/2020 6:00 PM MEN'S LOCKER ROOM ATTENDANT Pulse 68 12/14/2020 6:10 PM MEN'S LOCKER ROOM ATTENDANT Temperature 37.1 ??C (98.8 ??F) 12/14/2020 6:00 PM MEN'S LOCKER ROOM ATTENDANT Respiratory Rate 16 12/14/2020 6:00 PM MEN'S LOCKER ROOM ATTENDANT Oxygen Saturation 97% 12/14/2020 6:10 PM MEN'S LOCKER ROOM ATTENDANT Inhaled Oxygen Concentration - - Weight 71.8 kg (158 lb 4.6 oz) 12/14/2020 5:24 PM MEN'S LOCKER ROOM ATTENDANT Height 152 cm (4' 11.84) 12/14/2020 5:24 PM MEN'S LOCKER ROOM ATTENDANT Body Mass Index 31.08 12/14/2020 5:24 PM MEN'S LOCKER ROOM ATTENDANT documented in this encounter Discharge Instructions AttachmentsThe following attachments cannot be sent through Care Everywhere.RICE Therapy for Routine Care of Injuries [id number] (Vietnamese)documented in this encounter Medications at Time of [...] documented as of this encounter ED Notes Bull Calderon M.D. - 12/14/2020 5:21 PM CST SUBJECTIVE CHIEF COMPLAINT/REASON FOR VISIT Arm Injury (pt presents with left arm (elbow area) pain after falling this morning around 0730. Pt fell outside on icy pavement. No other injuries. Pt did work all day at [email or web address]. ) HISTORY OF PRESENT ILLNESS 30-year-old female presents to the emergency department for evaluation of left upper extremity pain after slipping and falling on the ice at 07:30 this morning. Patient states she was walking outside when she slipped, landing onto her left elbow and wrist. She did not hear any cracks, though experienced the acute onset of sudden and moderate/severe discomfort. She denies any head trauma or loss of consciousness, denying any sensation of palpitations, lightheadedness or dizziness prior to the fall. She went to work at [employer], where she work throughout the day, though did not use her left upper extremity utilized only her right arm for her entire shift. She did not take any analgesic medications, and after the conclusion of her shift now comes to the emergency department for evaluation. She complains of severe left upper extremity discomfort, rating it a 8/10 severity. It is somewhat improved with splinting, exacerbated with movement of the left elbow joint. She also complains of left forearmand left elbow pain. Denies any numbness or tingling. Denies any chest wall discomfort or shortness o f breath. No headache or neck discomfort. Here for evaluation. REVIEW OF SYSTEMS Constitutional: Negative for chills and fever. HENT: Negative for sore throat. Respiratory: Negative for cough, shortness of breath and wheezing. Cardiovascular: Negative for chest pain and palpitations. Gastrointestinal: Negative for abdominal pain, diarrhea, nausea and vomiting. Musculoskeletal: Positive for extremity pain (Left upper extremity as noted in HPI). Negative for neck pain. Skin: Negative for rash and wound. Neurological: Negative for headaches. OBJECTIVE Initial Vitals Temperature Pulse Rate Heart Rate Resp Rate Blood Pressure SpO2 12/14/20 1722 12/14/20 1722 -- 12/14/20 1722 12/14/20 1722 12/14/20 1722 37.1 ??C 101 18 (!) 180/116 100 % Pain Score 12/14/20 1723 8 PHYSICAL EXAMINATION Constitutional: Nursing note and vitals reviewed. She is cooperative. Non-toxic appearance. She doesnot have a sickly appearance. She does not appear ill. She appears distressed. Patient complains of pain, left upper extremity HENT: Head: Normocephalic and atraumatic. Right Ear: Tympanic membrane normal. Left Ear: Tympanic membrane normal. Nose: Nose normal. Mouth/Throat: Oropharynx is clear and moist. Eyes: EOM are normal. Pupils are equal, round, and reactive to light. Periorbital area normal appearing. Neck: Normal range of motion and full passive range of motion without pain. Neck supple. Cardiovascular: Normal rate, regular rhythm and normal peripheral perfusion. Normal left upper extremity radial pulse. Capillary refill normal left fingers, comparable to right Pulmonary/Chest: Effort normal. Neurological: She is alert and oriented to person, place, and time. GCS eye subscore is 4. GCS verbal subscore is 5. GCS motor subscore is 6. No sensory deficit is noted on left upper extremity dermatomal evaluation. Motor movements of the left wrist and hand are intact, the patient complains of pain in the left elbow with movement of the left wrist and fingers. Skin: Skin is warm and dry. Blows will areas of excoriation are noted on the face and upper extremities Psychiatric: She has a normal mood and affect. Her affect is tearful ( Complaining of discomfort of the left arm). ASSESSMENT/PLAN IMPRESSION AND PLAN Impression: Left arm injury, left shoulder sprain Plan: Patient has no bony abnormalities on radiographic analysis of the left shoulder, elbow, or wrist. Patient will be discharged with a left shoulder sling, and was given a note excusing her from work through December 17. I have scheduled and appointment for the patient be seen at her primary care ap pointment on December 16, at 15:15, at which point re-evaluation can be performed and further workrestrictions or consideration of any further imaging can be discussed. In the interim, Tylenol 500 mg may be utilized every 4 hours as needed for pain. Rest, ice, compression and elevation were also discussed with the patient. She was advised to elevate her hand above the level of her heart when in a seated position to decrease swelling of her distal upper extremity. Patient was advised she may return to the urgent care or emergency department at any time with questions or concerns, and all her questions were answered to her satisfaction prior to leaving the ER. DIFFERENTIAL DIAGNOSIS Including but not limited to left AC separation, left humeral fracture, left proximal radius/ulna fracture, Left radius/ulnar shaft fracture, left Wrist fracture, left Metacarpal fracture I reviewed previous medical records including radiology images/report. I personally reviewed the radiology image(s) and reviewed the radiology report(s). The Radiology exam interpretation(s) is/are documented in ED Course and normal. ED Course as of Dec 14 1810 Tue Dec 14, [id number] Radiographic evaluation of the left wrist, elbow, and shoulder showed no acute bony abnormalities. Final Diagnoses: as of Dec 14 1810 Injury Arm Initial Left Bull Calderon M.D. 12/14/201810 'S LOCKER ROOM ATTENDANT documented in this encounter Plan of Treatment Not on filedocumented as of this encounter Procedures Procedure Name Priority Date/Time Associated Comments Diagnosis DX WRIST LEFT 3+ RAD - Semiurgent 12/14/2020 5:57 Resu lts for this VIEWS (Fast; most ED PM MEN'S LOCKER ROOM ATTENDANT procedure are in patients; some the results inpatients) section. DX SHOULDER LEFT RAD - Semiurgent 12/14/2020 5:54 Resu lts for this 2+ VIEWS (Fast; most ED PM MEN'S LOCKER ROOM ATTENDANT procedure are in patients; some the results inpatients) section. DX ELBOW LEFT 3+ RAD - Semiurgent 12/14/2020 5:52 Resu lts for this VIEWS (Fast; most ED PM MEN'S LOCKER ROOM ATTENDANT procedure are in patients; some the results inpatients) section. documented in this encounter Results DX Wrist Left 3+ Views (12/14/2020 5:57 PM MEN'S LOCKER ROOM ATTENDANT) Anatomical Region Laterality Modality Upper Extremity, Wrist, Musculoskeletal RST LOS, Left Digital Radiography Musculoskeletal ARZ LOS, Muskuloskeletal FLA LOS Specimen (Source) Anatomical Collection Method Collection Time Re ceived Time Location / / Volume Laterality 12/14/2020 5:58 PM MEN'S LOCKER ROOM ATTENDANT Impressions 12/14/2020 5:59 PM MEN'S LOCKER ROOM ATTENDANT No acute radiographic abnormalities are demonstrated. Narrative 12/14/2020 5:59 PM MEN'S LOCKER ROOM ATTENDANT EXAM: DX WRIST LEFT 3+ VIEWS COMPARISON: December 26, 2019 FINDINGS: No fracture nor dislocation is demonstrated. Procedure Note Reginald Ventura M.D. - 12/14/2020Forma tting of this note might be different from the original. EXAM: DX WRIST LEFT 3+ VIEWS COMPARISON: December 26, 2019 FINDINGS: No fracture nor dislocation is demonstrated. IMPRESSION: No acute radiographic abnormalities are demonstrated. Bull Calderon M.D. IMG DIAGNOSTIC IMAGING PROCE LUKE DX Shoulder Left 2+ Views (12/14/2020 5:54 PM MEN'S LOCKER ROOM ATTENDANT) Anatomical Region Laterality Modality Upper Extremity, Shoulder, Musculoskeletal RST LOS, Left Digital Radiography Musculoskeletal ARZ LOS, Muskuloskeletal FLA LOS Specimen (Source) Anatomical Collection Method Collection Time Re ceived Time Location / / Volume Laterality 12/14/2020 5:57 PM MEN'S LOCKER ROOM ATTENDANT Impressions 12/14/2020 5:58 PM MEN'S LOCKER ROOM ATTENDANT No acute radiographic abnormalities are demonstrated. Narrative 12/14/2020 5:58 PM MEN'S LOCKER ROOM ATTENDANT EXAM: DX SHOULDER LEFT 2+ VIEWS COMPARISON: None FINDINGS: No fracture nor dislocation is demonstrated. Procedure Note Reginald Ventura M.D. - 12/14/2020Forma tting of this note might be different from the original. EXAM: DX SHOULDER LEFT 2+ VIEWS COMPARISON: None FINDINGS: No fracture nor dislocation is demonstrated. IMPRESSION: No acute radiographic abnormalities are demonstrated. Bull Calderon M.D. Ct DIAGNOSTIC IMAGING PROCE DURES DX Elbow Left 3+ Views (12/14/2020 5:52 PM MEN'S LOCKER ROOM ATTENDANT) Anatomical Region Laterality Modality Upper Extremity, Elbow, Musculoskeletal RST LOS, Left Digital Radiography Musculoskeletal ARZ LOS, Muskuloskeletal FLA LOS Specimen (Source) Anatomical Collection Method Collection Time Re ceived Time Location / / Volume Laterality 12/14/2020 5:56 PM MEN'S LOCKER ROOM ATTENDANT Impressions 12/14/2020 5:57 PM MEN'S LOCKER ROOM ATTENDANT No acute radiographic abnormalities are demonstrated. Narrative 12/14/2020 5:57 PM MEN'S LOCKER ROOM ATTENDANT EXAM: DX ELBOW LEFT 3+ VIEWS COMPARISON: None FINDINGS: No fracture nor dislocation is demonstrated. Procedure Note Reginald Ventura M.D. - 12/14/2020Forma tting of this note might be different from the original. EXAM: DX ELBOW LEFT 3+ VIEWS COMPARISON: None FINDINGS: No fracture nor dislocation is demonstrated. IMPRESSION: No acute radiographic abnormalities are demonstrated. Bull TRUONG DIAGNOSTIC IMAGING PROCE DURES documented in this encounter Visit Diagnoses Diagnosis Injury Arm Initial Left - Primary documented in this encounter Administered Medications Inactive Administered Medications - up to 3 most recent administrations Medication Order MAR Action Action Date Dose Rate Site acetaminophen tablet 1,000 mg Given 12/14/2020 5:28 PM MEN'S LOCKER ROOM ATTENDANT 1,000 mg (TYLENOL) 1,000 mg, oral, Once, On Sun12/14/20 at 1721, For 1 dose documented in this encounter Active and Recently Administered Medications Times are shown in MEN'S LOCKER ROOM ATTENDANT. Scheduled Medication Order 12/12/2020 12/13/2020 12/14/2020 acetaminophen tablet 1,000 mg (TYLENOL) (COMPLETED) 1728 (Given - Provider: Nita Maira, R.N.) 1,000 mg, oral, Once, On Sun12/14/20 at 1721, For 1 dose documented in this encounter Care Teams Automated Teller Manager Relationship Specialty Start Date End Date Elsewhere, Pcp PCP - General Family Medicine 01/08/18 01/12/21 documented as of this encounter
--- OUTSIDE RECORDS SUMMARY | 2022-05-31 01:00 | XMS_ITS | Encounter Summary ---
:1990 Author Organization [facility] Address [address] [place] [address] Care Team Providers Name Role Phone Elsewhere, Pcp Primary Care Provider Unavailable Reason for Visit MRI/CAT/PET Scan (Routine) - Closed Specialty Diagnoses / Procedures Referred By Contact Refer red To Contact Radiology Diagnoses Pain Cervical Esther Andrea, FILLER AND TRIMMER, [facility] Region Procedures CT Cervical Spine without IV Contrast C.N.P., D.N.P. [address] [place] [phone] Referral ID Status Reason Start Date Expiration Date Visits Requ ested Visits Authorized [id number] Closed 08/01/2019 07/31/2020 1 1 Encounter Details Date Type Department Care Team Description 08/01/2019 Hospital Encounter Department of Radiology Eliazar Andrea britt, in [facility] FATOU, C.N.P., [address] [place] D.N.P. [place], [place] [phone] [place] [phone] [place] [phone] Social History Tobacco Use Types Packs/Day Years [...] do you attend adventism or Never 2021 roman catholic services? Do you belong to any clubs or No 11/20/2021 organizations such as adventism groups, unions, fraAMS [employer] or athletic groups, or school groups? How [...] at Date Recorded Female 12/02/2021 5:19 PM PHOTOFLASH POWDER MIXER documented as of this encounter Medications at [...] section. documented in this encounter Results CT Cervical Spine without IV Contrast (08/01/2019 7:18 PM CDT) Anatomical Region Laterality Modality Cervical Spine, Neuroradiology RST LOS, Neuroradiology N/A Computed Tomography ARZ LOS, Neuroradiology FLA [facility] Specimen (Source) Anatomical Collection Method Collection Time [...] acute cervical spine fracture or bryan lignment. Esther Andrea APRN C.N.P., D.N.P. IMG CT PROCEDURES documented in this encounter Visit Diagnoses Not on filedocumented in this encounter Care Teams Manager Bilingual Relationship Specialty Start Date End Date Elsewhere, Pcp PCP - General Family Medicine 01/08/18 01/12/21 documented as of this encounter
--- OUTSIDE RECORDS SUMMARY | 2022-05-31 01:00 | XMS_ITS | Encounter Summary ---
:1990 Author Organization [facility] Address [address] [place] [address] Care Team Providers Name Role Phone Elsewhere, Pcp Primary Care Provider Unavailable Reason for Visit Reason Comments Wrist Pain 30 y/o f presents with R wri st and hand pain since . Pt says is sharp and radiates up her ar m, no injury, has been taking advil with some relief. Encounter Details Date Type Department Care Team Description 05/30/2020 Emergency [place] Emergency Sigrid Forbes endofrantz Forearm Department D, M.D. (Primary Dx) [address] [facility] [place] [phone] (Wo rk) Social History Tobacco Use Types [...] or relatives? How often do you attend yazdanism or Never 2021 synagogue services? Do you belong to any clubs or No 11/20/2021 organizations such as yazdanism groups, unions, fraternal or athletic groups, or [...] at Date Recorded Female 12/02/2021 5:19 PM SERVICE LINE COORDINATOR documented as of this encounter Last Filed Vital Signs Vital Sign Reading Time Taken Comments Blood Pressure 143/98 05/30/2020 1:16 PM CDT Pulse 79 05/30/2020 1:16 PM CDT Temperature 36.5 ??C (97.7 ??F) 05/30/2020 1:16 PM CDT Respiratory Rate 18 05/30/2020 1:16 PM CDT Oxygen Saturation 97% 05/30/2020 1:16 PM CDT Inhaled Oxygen Concentration - - Weight 74 kg (163 lb 3.2 oz) 05/30/2020 12:07 PM CDT Height - - Body Mass Index 30.81 12/26/2019 9:26 AM SERVICE LINE COORDINATOR documented in this encounter Discharge Instructions Discharge InstructionsToSigrid geronimo M.D. - 05/30/2020 1:12 PM CDT Return to the Emergency Department immediately if you develop chest pain, shortness of breath, weakness, numbness, confusion, lightheadedness, fever, blood loss, inability to eat or drink, or with any other new or concerning symptoms. You can take 400mg of Ibuprofen (Motrin, Advil) by mouth with food every 6-8 hours for pain (no morethan 3200mg in 24hrs). You may also take 650-1000mg of Acetaminophen (Tylenol) along with the Ibuprofen. Take no more than 3000mg in 24hrs and write down the times you are taking both medications to ensure appropriate time in between doses. Use ice for 20 minutes 4 times a day. Elevate the arm. Use wrist splint as needed. Please follow up with your primary care doctor in the next 1-7 days regarding your visit to the Emergency Room. If you do not have a doctor, you can make an appointment at our local clinic by calling the appointment center at [phone]. Thank you for choosing [facility] for your care. It was a pleasure taking care of you today in our Emergency Department. documented in this encounter Medications at Time [...] encounter ED Notes Sigrid Forbes M.D. - 05/30/2020 12:11 PM CDT [facility] EMERGENCY DEPARTMENT ENCOUNTER Patient Name: Lulu Mata PCP: Primary Care Physician SUBJECTIVE CHIEF COMPLAINT/REASON FOR VISIT Wrist Pain (30 y/o f presents with R wrist and hand pain since . Pt says is sharp and radiates up her arm, no injury, has been taking advil with some relief.) HISTORY OF PRESENT ILLNESS Lulu Mata is a 30 y.o. female with the below history presenting with right wrist pain. She notesthat on Sunday and she noticed a bruise on the dorsal aspect of her right hand. Uncertain trauma. Since that time she has had aches and pains in the right wrist. Worse with range of motion at the wrist. Has not had any fever or streaking. No numbness or tingling. Ibuprofen helps with her pain as does icing. She denies any ongoing bruising or swelling. No prior surgeries in this area. She is right-handed but has worked primarily with her left hand for the last 2 days due to the pain. Again denies any known injury or falls on outstretched hands, denying any history of gout, denying any infectious symptoms. REVIEW OF SYSTEMS Constitutional: Negative for fever. Skin: Negative for skin rash. Respiratory: Negative for dyspnea. Cardiovascular: Negative for chest pain, pressure or tightness. Gastrointestinal: Negative for abdominal (belly) pain or cramping. Hematologic: Negative for bruises or bleeds easily. Musculoskeletal: Positive for arthralgias and pain or stiffness in the joints. Neurological: Negative for weakness in arms or legs. MEDICAL HISTORY [...] use: No OBJECTIVE VITAL SIGNS BP (!) 136/96 (BP Location: Left arm, Patient Position: Sitting) Pulse 78 Temp 36.5 ??C (Temporal) Resp 16 Wt 74 kg SpO2 97% BMI 30.81 kg/m?? PHYSICAL EXAMINATION Vitals signs and nursing note reviewed. Constitutional General: She is not in acute distress. Appearance: She is not ill-appearing. HENT Head: Normocephalic and atraumatic. Neck Musculoskeletal: Normal range of motion. Cardiovascular Rate and Rhythm: Normal rate and regular rhythm. Pulses: Normal pulses. Comments: Strong distal pulses of the right extremity, normal cap refill Pulmonary Effort: Pulmonary effort is normal. Abdominal Palpations: Abdomen is soft. Musculoskeletal Comments: No notable swelling or bruising, but diffusely tender over the right wrist. No palpable effusion. Range of motion is complete, with worsening pain with Devika's test. I do not see any any streaking or warmth, examination of the shoulder elbow and forearm are reassuring. No pain in the snuffbox, strength and sensation are intact throughout the fingers, without any deficits. Skin General: Skin is warm. Capillary Refill: [...] Medications - No data to display MDM: 30-year-old female presenting with diffuse right wrist pain, worsening with Devika's test, and favored to be a tendinitis. Unclear traumatic history, there was a bruise apparently on the posteriorwrist, that has now resolved within 48 hours. She does not know of any trauma, but an x-ray to rule out fracture. There is no pain in the anatomical snuffbox, I feel this is unlikely a scaphoid injury,but tenderness is throughout the radial aspect anti some degree the ulnar aspect worse with flexion,concerning for tendinitis. Consideration for other etiologies including gout risk factors are low, there is no warmth, effusion or abnormalities. Consideration for septic joint, but no fever, open skinwounds, and exam is less consistent with this. Her pain did improve with icing and ibuprofen, will elicit rice treatment with a wrist splint at this time, clinic follow-up. ED Course as of May 30 1325 Sun May 30, 2020 1311 X-rays negative for acute abnormalities. In the room patient is resting comfortably in repeat exams without concerns for septic joint or gout, this time will treat for sprain versus tendinitis with splinting, rest, ice, elevation and clinic follow-up. Final Diagnoses: as of May 30 1325 Tendonitis Forearm DISPOSITION/PLAN: Home with PCP DISCHARGE MEDICATIONS: New Prescriptions No medications on file Sigrid Forbes M.D. 05/30/20 1325 documented in this encounter Plan of Treatment Not on filedocumented as of this encounter Procedures Procedure Name Priority Date/Time Associated Comments Diagnosis DX WRIST RIGHT 3+ RAD - Routine 05/30/2020 12:51 Resul ts for this VIEWS (most inpatients PM CDT procedure a re in and all the results outpatients) section. documented in this encounter Results DX Wrist Right 3+ Views (05/30/2020 12:51 PM CDT) Anatomical Region Laterality Modality Upper Extremity, Wrist, Musculoskeletal RST LOS, Right Digital Radiography Musculoskeletal ARZ LOS, Muskuloskeletal FLA LOS Specimen (Source) Anatomical Collection Method Collection Time Re ceived Time Location / / Volume Laterality 05/30/2020 1:03 PM CDT Impressions 05/30/2020 1:04 PM CDT No acute injury or significant chronic c hange. Narrative 05/30/2020 1:04 PM CDT EXAM: DX WRIST RIGHT 3+ VIEWS COMPARISON: 01/15/2017 and prior FINDINGS: The distal radius and ulna are intact and aligned. There is no soft tissue swelling visualized. The carpals, metacarpals, and visualized phalanges are intact and well aligned. There is no cortical lucency to suggest fracture. Procedure Note Timoteo Paredes M.D. - 05/30/2020Fo rmatting of this note might be different from the original. EXAM: DX WRIST RIGHT 3+ VIEWS COMPARISON: 01/15/2017 and prior FINDINGS: The distal radius and ulna are intact and aligned. There is no soft tissue swelling visualized. The carpals, metacarpals, and visualized phalanges are intact and well aligned. There is no cortical lucency to suggest fracture. IMPRESSION: No acute injury or significant chronic c hange. Sigrid TRUONG DIAGNOSTIC IMAGING VARGAS BUTLER documented in this encounter Visit Diagnoses Diagnosis Tendonitis Forearm - Primary documented in this encounter Care Teams Supervisor Picking Crew Relationship Specialty Start Date End Date Elsewhere, Pcp PCP - General Family Medicine 01/08/18 01/12/21 documented as of this encounter
--- OUTSIDE RECORDS SUMMARY | 2022-05-31 01:00 | XMS_ITS | Encounter Summary ---
:1990 Author Organization [facility] Address [address] [place] [address] Care Team Providers Name Role Phone Elsewhere, Pcp Primary Care Provider Unavailable Reason for Visit Reason Comments Earache Encounter Details Date Type Department Care Team Description 01/02/2021 Nurse Triage Department of [facility] Angella Herbert, Ear ache Medicine in [place], M.S.N., R.N. [place] [address] [place] [address] 1976 Social History Tobacco Use Types Packs/Day Years [...] or relatives? How often do you attend jain or Never 2021 pentecostal services? 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 - 01/02/2021 11:11 AM CDT Chief Complaint / Reason for Call Patient is a 30 y.o. female calling regarding Earache. Assessment Concern: Patient reports right ear pain. Inside and outside and around the ear hurts as well and Area is red. Present for: symptoms started Home cares tried: Ibuprofen not helping. She has been using heat. Calling to request: An appointment The recommended disposition is See a health care provider within 4 hours. Patient will contact her insurance as she has a restricted plan. She get clearance to be seen. Reason for Disposition ??? [1] SEVERE pain AND [2] not improved 2 hours after taking analgesic medication (e.g., ibuprofen or acetaminophen) Protocols used: [id number] Care Advice Patient/Caregiver understands and will follow care advice?: Yes, able to teach back SEE PCP WITHIN 4 HOURS (OR PCP TRIAGE): * IF OFFICE WILL BE OPEN: You need to be seen within the next 3 or 4 hours. Call your doctor (or SPRAY TECHNICIAN/PA) now or as soon as the office opens. * IF OFFICE WILL BE CLOSED AND NO PCP (PRIMARY CARE PROVIDER) SECOND-LEVEL TRIAGE: You need to be seen within the next 3 or 4 hours. A nearby Urgent Care Center (UCC) is often a good source of care. Another choice is to go to the ED. Go sooner if you become worse. * IF OFFICE WILL BE CLOSED AND PCP SECOND-LEVEL TRIAGE REQUIRED: You may need to be seen. Your doctor (or SPRAY TECHNICIAN/PA) will want to talk with you to decide what's best. I'll page the on-call provider now. Ifyou haven't heard from the provider (or me) within 30 minutes, call again. NOTE: If on-call providercan't be reached, send to UCC or ED. CALL BACK IF: * You become worse. documented in this encounter Plan of Treatment Not on filedocumented as of this encounter Visit Diagnoses Not on filedocumented in this encounter Care Teams Electrochemist Relationship Specialty Start Date End Date Elsewhere, Pcp PCP - General Family Medicine 01/08/18 01/12/21 documented as of this encounter
--- OUTSIDE RECORDS SUMMARY | 2022-05-31 01:00 | XMS_ITS | Encounter Summary ---
:1990 Author Organization [facility] Address [address] [place] [address] Care Team Providers Name Role Phone Elsewhere, Pcp Primary Care Provider Unavailable Encounter Details Date Type Department Care Team Description 01/07/2021 Hospital Encounter Department of Renae, aZck Hammer, Pain Elbow Left Radiology, [facility], in [place] [address] [place], [place] [address] [place] [address] [place], [place] [phone] (Work) [phone] Social History Tobacco Use Types Packs/Day Years [...] do you attend religion or Never 2021 episcopalian services? Do you belong to any clubs [...] place to sleep or slept in a care home (including now)? 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 cetirizine (ZyrTEC) 10 mg Take 1 tablet (10 30 tablet 0 01/13/2021 tabletIndications: mg total) by mouth Rhinitis Allergic daily as needed for allergies. etonogestreL (NEXPLANON) 1 each by implant 0 12/2112/20/2021 68 mg subdermal implant route continuously. ibuprofen (ADVIL,MOTRIN) Take 600 mg by 0 12/20/2021 600 mg tablet mouth every 6 (six) hours as needed for pain. naproxen (NAPROSYN) 500 mg Take 1 tablet (500 60 tablet 0 0 01/07/2021 01/13/2021 tabletIndications: Pain mg total) by mouth Elbow Left 2 (two) times a day as needed for pain (pain). documented as of this encounter Plan of Treatment Not on filedocumented as of this encounter Procedures Procedure Name Priority Date/Time Associated Comments Diagnosis DX ELBOW LEFT 3+ RAD - Routine 01/07/2021 3:35 Pain Elbow Left Resu lts for this VIEWS (most inpatients PM CDT procedure a re in and all the results outpatients) section. documented in this encounter Results DX Elbow Left 3+ Views (01/07/2021 3:35 PM CDT) Anatomical Region Laterality Modality Upper Extremity, Elbow, Musculoskeletal RST LOS, Left Computed Radiography Musculoskeletal ARZ LOS, Muskuloskeletal FLA LOS Specimen (Source) Anatomical Collection Method Collection Time Re ceived Time Location / / Volume Laterality 01/07/2021 3:37 PM CDT Impressions 01/07/2021 3:37 PM CDT Normal study. Narrative 01/07/2021 3:37 PM CDT EXAM: DX ELBOW LEFT 3+ VIEWS COMPARISON: 12/14/2020 FINDINGS: The osseous structures and myah nt spaces are normally aligned and well maintained, without evidence of fracture , dislocation or significant degeneration. Specifically, there is no evidence of a radial head fracture. The surrounding soft tissues are normal. Procedure Note Trell Boss M.D. - 01/07/2021Format ting of this note might be different from the original. EXAM: DX ELBOW LEFT 3+ VIEWS COMPARISON: 12/14/2020 FINDINGS: The osseous structures and myah nt spaces are normally aligned and well maintained, without evidence of fracture , dislocation or significant degeneration. Specifically, there is no evidence of a radial head fracture. The surrounding soft tissues are normal. IMPRESSION: Normal study. Zack [facility] VARGAS BUTLER documented in this encounter Visit Diagnoses Diagnosis Pain Elbow Left documented in this encounter Care Teams Content Engineer Relationship Specialty Start Date End Date Elsewhere, Pcp PCP - General Family Medicine 01/08/18 01/12/21 documented as of this encounter
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
--- OUTSIDE RECORDS SUMMARY | 2022-05-31 01:00 | XMS_ITS | Encounter Summary ---
:1990 Author Organization [facility] Address [address] [place] [address] Care Team Providers Name Role Phone Elsewhere, Pcp Primary Care Provider Unavailable Reason for Referral Outpatient (Routine) - Closed Specialty Diagnoses / Procedures Referred By Contact Refer red To Contact Diagnoses [facility] Ben Arce M.D. [address] [place] [address] Referral ID Status Reason Start Date Expiration Visits Visits Date Requested Authorized [id number] Closed Continuity of 10/06/2020 10/06/2021 1 1 Care ING TECHNICIAN Reason for Visit Reason Comments Communication referral Encounter Details Date Type Department Care Team Description 10/06/2020 Clinical Communication Department of Ben Arce Comm unication Family Medicine in [place] (referral ) [place] [address] [facility] [address] [facility] [phone] Social History Tobacco Use Types Packs/Day Years [...] or relatives? How often do you attend cheondoism or Never 2021 druze services? 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 - 10/06/2020 4:17 PM CST Pt advised that referral was faxed to [facility]: [phone] ING TECHNICIAN Telephone Encounter - Ben Arce M.D. - 10/06/2020 2:55 PM CST External referral order placed. Please fax for patient. Thanks. It should be printed in the office printer. Thanks. ING TECHNICIAN Telephone Encounter - Ilene Gautam - 10/06/2020 11:49 AM CST Please do not reply to sender,emails are not monitored. Thank you. If you need a prescription refill please call your pharmacy. Please allow 3 business days for processing. Expert RN: N/A (Med Refill Only) Call Center Template: ??? May we leave a message for you on this phone? yes What can I help you with today? Patient calling to leave message for Dr. Arce or her nurse. Due to her insurance, she needs Dr. Arce to send referral for her to see [facility] Dentist in [place]. She is on a restricted program through insurance and they will only cover this if referred by Dr. Arce. She is having a tooth pulled on Sunday. Please fax to fax #[phone]. Please call her to let her know if this is done. Thank you. I will send this information to the appropriate staff member who will look into your concern. Is there anything else I can help you with today? Thank you for calling [facility]. ING TECHNICIAN documented in this encounter Plan of Treatment Not on filedocumented as of this encounter Visit Diagnoses Diagnosis [facility] - Primary documented in this encounter Care Teams Wetland Scientist Relationship Specialty Start Date End Date Elsewhere, Pcp PCP - General Family Medicine 01/08/18 01/12/21 documented as of this encounter
--- OUTSIDE RECORDS SUMMARY | 2022-05-31 01:00 | XMS_ITS | Encounter Summary ---
:1990 Author Organization [facility] Address [address] [place] [address] Care Team Providers Name Role Phone Elsewhere, Pcp Primary Care Provider Unavailable Reason for Visit Reason Comments Pain In Limb Follow up on left elbow Outpatient (Routine) - Closed Specialty Diagnoses / Procedures Referred By Contact Refer red To Contact Family Medicine Zack Macdonald M.D. [facility] Region [address] [place] [address] Referral ID Status Reason Start Date Expiration Date Visits Requ ested Visits Authorized [id number] Closed 12/16/2020 12/16/2021 1 1 Encounter Details Date Type Department Care Team Description 12/24/2020 Office Visit Department of Donya Fitzgerald Pain Elbow Left Medicine in [facility], FATOU, C.N.P., (Primary Dx) [place], [place] D.N.P. [address] [place] [phone] Social History Tobacco Use Types Packs/Day Years [...] do you attend episcopal or Never 2021 latter day services? Do [...] pay for the very basics like Nav jordan dai hard 11/20/2021 food, housing, medical [...] place to sleep or slept in a ch[facility] (including now)? 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 documented as of this encounter Last Filed Vital Signs Vital Sign Reading Time Taken Comments Blood Pressure 128/80 12/24/2020 3:26 PM GEOLOGICAL TECHNICAL OFFICER Pulse 80 12/24/2020 3:26 PM GEOLOGICAL TECHNICAL OFFICER Temperature 36.4 ??C (97.5 ??F) 12/24/2020 3:26 PM GEOLOGICAL TECHNICAL OFFICER Respiratory Rate - - Oxygen Saturation 97% 12/24/2020 3:26 PM GEOLOGICAL TECHNICAL OFFICER Inhaled Oxygen Concentration - - Weight 72.1 kg (158 lb 15.2 oz) 12/24/2020 3:26 PM GEOLOGICAL TECHNICAL OFFICER Height - - Body Mass Index 31.21 12/14/2020 5:24 PM GEOLOGICAL TECHNICAL OFFICER documented in this encounter Progress Notes Donya Lind, FATOU, C.N.P., D.N.P. - 12/24/2020 3:45 PM CST SUBJECTIVE CHIEF COMPLAINT/REASON FOR VISIT Chief Complaint Patient presents with ??? Pain In Limb Follow up on left elbow HISTORY OF PRESENT ILLNESS Lulu Mata is a 30 y.o. female who presents for follow-up of left arm injury and work restrictions. Refer to ER visit from 12/14 and follow-up clinic visit from 12/16 for details. No fractures were seen on initial x-ray, however it was suspected that she have a radial head fracture. Patient reports using sling primarily at work and at home has been trying to go without. She has not noticed improvement in pain level or ROM. Treatments include ibuprofen and ice with some relief. The following portions of the patient's history were reviewed and updated as appropriate: Allergies,Current Medications, Medical History, Surgical History, Social History and Problem List OBJECTIVE VITAL SIGNS BP 128/80 (BP Location: Right arm, Patient Position: Sitting, Cuff Size: Large) Pulse 80 Temp 36.4 ??C (Temporal) Wt 72.1 kg SpO2 97% BMI 31.21 kg/m?? PHYSICAL EXAMINATION Constitutional General: She is not in acute distress. Appearance: Normal appearance. She is not ill-appearing. Pulmonary Effort: Pulmonary effort is normal. Musculoskeletal Comments: Tenderness with palpation of lateral elbow and proximal lateral forearm. Mild swelling noted. Slight decreased ROM with flexion/extension of wrist and elbow. Unable to perform supination/pronation due to pain. Skin General: Skin is warm and dry. Neurological General: No focal deficit present. Mental Status: She is alert and oriented to person, place, and time. ASSESSMENT / PLAN #1 Pain Elbow Left Other orders - Family Medicine office visit (clinic) With minimal improvement in symptoms since previous visit, tenderness and decreased ROM on exam, recommend continuing with current work restrictions to wear sling while at work with ROM and activity astolerated at home. Continue application of ice at regular intervals, ibuprofen and tylenol for pain relief. Follow-up in 2 weeks for re-evaluation and repeat x-rays per previous recommendations. Patient verbalized understanding and agreeable with plan of care. Donya Lind, MIGUELANGEL, DNP OGICAL TECHNICAL OFFICER documented in this encounter Plan of Treatment Not on filedocumented as of this encounter Visit Diagnoses Diagnosis Pain Elbow Left - Primary documented in this encounter Care Teams Ballistics Expert Relationship Specialty Start Date End Date Elsewhere, Pcp PCP - General Family Medicine 01/08/18 01/12/21 documented as of this encounter
--- OUTSIDE RECORDS SUMMARY | 2022-05-31 01:00 | XMS_ITS | Encounter Summary ---
:1990 Author Organization [facility] Address [address] [place] [address] Care Team Providers Name Role Phone Elsewhere, Pcp Primary Care Provider Unavailable Reason for Referral Outpatient (Routine) - Closed Specialty Diagnoses / Procedures Referred By Contact Refer red To Contact Family Medicine Zack Macdonald M.D. [facility] [address] [place] [phone] Referral ID Status Reason Start Date Expiration Date Visits Requ ested Visits Authorized [id number] Closed 12/16/2020 12/16/2021 1 1 DING MACHINE TENDER Reason for Visit Reason Comments Follow-up arm injury Encounter Details Date Type Department Care Team Description 12/16/2020 Office Visit Department of Family Zack Macdonald, Pain Elbow Left Medicine in [facility] (Primary Dx) [place], [place] [address] [place] [phone] Social History Tobacco Use Types Packs/Day Years [...] do you attend gnosticism or Never 2021 mandaeism services? Do you belong to any clubs or No 11/20/2021 organizations such as gnosticism groups, unions, fraNetmining or athletic groups, or school groups? How [...] at Date Recorded Female 12/02/2021 5:19 PM BRANDING MACHINE TENDER documented as of this encounter Last Filed Vital Signs Vital Sign Reading Time Taken Comments Blood Pressure 126/92 12/16/2020 3:16 PM BRANDING MACHINE TENDER Pulse 78 12/16/2020 3:11 PM BRANDING MACHINE TENDER Temperature 36.2 ??C (97.2 ??F) 12/16/2020 3:11 PM BRANDING MACHINE TENDER Respiratory Rate - - Oxygen Saturation 97% 12/16/2020 3:11 PM BRANDING MACHINE TENDER Inhaled Oxygen Concentration - - Weight 72.1 kg (158 lb 14.4 oz) 12/16/2020 3:11 PM BRANDING MACHINE TENDER Height - - Body Mass Index 31.2 12/14/2020 5:24 PM BRANDING MACHINE TENDER documented in this encounter Patient Instructions Patient InstructionsZack Macdonald M.D. - 12/16/2020 3:30 PM CST 1. Make an appointment in 3 weeks for follow-up. 2. Sling as needed for comfort. 3. Continue to work on range of motion with the shoulder and elbow. 4. Tylenol or ibuprofen as needed for discomfort. DING MACHINE TENDER documented in this encounter Progress Notes Zack Macdonald M.D. - 12/16/2020 3:30 PM CST SUBJECTIVE CHIEF COMPLAINT/REASON FOR VISIT Follow-up emergency department visit for fall onto left arm. HISTORY OF PRESENT ILLNESS Lulu Mata is a 30 y.o. female who presents for follow-up emergency department visit for left arminjury. She was seen in the emergency department and x-rays were negative of the shoulder arm and wrist. She was placed in a sling and was to take Tylenol as needed for discomfort. She was kept off work until 12/17/2020. She complains primarily of pain in the lateral elbow. It is worse when she tries to flex at the elbow or supinate. PROBLEM LIST: Patient Active Problem List Diagnosis ??? Deficiency Vitamin D ??? Thrombosis Superficial Vein Lower Extremity Left ??? Tendonitis Elbow ??? Tendonitis MEDICAL HISTORY Past Medical History: Diagnosis Date ??? Asthma NOS ??? Diabetes Mellitus Gestational 09/21/2012 Overview: Diet-controlled SURGICAL HISTORY Past Surgical History: Procedure Laterality Date ??? WISDOM TOOTH EXTRACTION SOCIAL HISTORY Social History Tobacco Use ??? Smoking status: Never Smoker ??? Smokeless tobacco: Never Used Substance Use Topics ??? Alcohol use: No ??? Drug use: No Social History Social History Narrative ??? Not on file FAMILY HISTORY No family history on file. CURRENT MEDICATIONS Current Outpatient Medications on File Prior to Visit Medication Sig Dispense Refill ??? acetaminophen (TYLENOL) 500 mg tablet Take 1,000 mg by mouth every 6 (six) hours as needed for pain. ??? etonogestrel (NEXPLANON) 68 mg subdermal implant 1 each by implant route continuously. ??? ibuprofen (ADVIL,MOTRIN) 600 mg tablet Take 600 mg by mouth every 6 (six) hours as needed for pain. No current facility-administered medications on file prior to visit. ALLERGIES/CONTRAINDICATIONS Allergies Allergen Reactions ??? No Known Allergies Other (see comments) REVIEW OF SYSTEMS REVIEW OF SYSTEMS Denies any other injuries. She denies hitting her head. Her shoulder is feeling okay today. OBJECTIVE VITAL SIGNS BP (!) 126/92 (BP Location: Right arm, Patient Position: Sitting, Cuff Size: Regular) Pulse 78 Temp 36.2 ??C (Temporal) Wt 72.1 kg SpO2 97% BMI 31.20 kg/m?? PHYSICAL EXAMINATION General: No apparent distress. Her left arm is in a sling. Extremities: The left shoulder shows abduction to 70?? forward flexion is full. External rotation is40??. Internal rotation shows her to be able to touch to about T11. There is mild tenderness over the posterior aspect of the shoulder. There is no other tenderness. There is no tenderness over the AC joint. The elbow flexes to about 80?? and she is missing the last 15?? of extension. She holds the forearm in pronation and has only about 90?? of supination. There is tenderness over the radial head. DIAGNOSTICS LABS: X-rays from 12/14/2020 were reviewed and show no fracture. ASSESSMENT / PLAN #1 Pain Elbow Left - DX Elbow Left 3+ Views; Future; Expected date: 01/05/2021 Other orders - Family Medicine office visit (clinic); Future; Expected date: 01/05/2021 Elbow injury with typical mechanism for radial head fracture. This would be a type 1 radial head fracture that would benefit from early range of motion. Usually the fracture is more clearly seen on x-ray after about 3 weeks. Patient Instructions 1. Make an appointment in 3 weeks for follow-up. 2. Sling as needed for comfort. 3. Continue to work on range of motion with the shoulder and elbow. 4. Tylenol or ibuprofen as needed for discomfort. DING MACHINE TENDER documented in this encounter Plan of Treatment Scheduled Referrals Name Type Priority Associated Diagnoses Order [facility] Outpatient Referral Routine Expec taurus: office visit 01/05/2021 (clinic) (Approximate), Expires: 12/16/2023 documented as of this encounter Results DX Elbow Left 3+ [...] Diagnoses Diagnosis Pain Elbow Left - Primary Pain Elbow Left documented in this encounter Care Teams Finger Buff Sewer Relationship Specialty Start Date End Date Elsewhere, Pcp PCP - General Family Medicine 01/08/18 01/12/21 documented as of this encounter
--- OUTSIDE RECORDS SUMMARY | 2022-05-31 01:00 | XMS_ITS | Encounter Summary ---
:1990 Author Organization [facility] Address [address] [place] [address] Care Team Providers Name Role Phone Elsewhere, Pcp Primary Care Provider Unavailable Reason for Referral Physical Therapy (Routine) - Denied Specialty Diagnoses / Procedures Referred By Contact Refer red To Contact Diagnoses Tendonitis Loulou Teresa APRN, [facility] Procedures PT Evaluate and treat C.N.P. [address] [place] [address] Referral ID Status Reason Start Date Expiration Date Visits Requ ested Visits Authorized [id number] Denied 06/08/2020 10/21/2020 1 0 Reason for Visit Reason Comments Post Ed Visit Follow-up Encounter Details Date Type Department Care Team Description 06/08/2020 Office Visit Department of [facility] Loulou Teresa Te ndonitis (Primary Medicine in [facility] ASBESTOS MICROSCOPIST, C.N.P. Dx) [place], [place] [address] [place] [phone] Social History Tobacco Use Types Packs/Day Years [...] do you attend orthodoxy or Never 2021 adventism services? Do you belong to any clubs [...] at Date Recorded Female 12/02/2021 5:[address] MAGISTRATE documented as of this encounter Last Filed Vital Signs Vital Sign Reading Time Taken Comments Blood Pressure 121/86 06/08/2020 10:33 AM CDT Pulse 79 06/08/2020 10:33 AM CDT Temperature 36.3 ??C (97.3 ??F) 06/08/2020 10:33 AM CDT Respiratory Rate 20 06/08/2020 10:33 AM CDT Oxygen Saturation 99% 06/08/2020 10:33 AM CDT Inhaled Oxygen Concentration - - Weight 74 kg (163 lb 3.2 oz) 06/08/2020 10:33 AM CDT Height 154 cm (5' 0.63) 06/08/2020 10:33 AM CDT Body Mass Index 31.21 06/08/2020 10:33 AM CDT documented in this encounter Progress Notes Loulou Teresa, FATOU, C.N.P. - 06/08/2020 10:45 AM CDT SUBJECTIVE CHIEF COMPLAINT/REASON FOR VISIT Post Ed Visit Follow-up HISTORY OF PRESENT ILLNESS Lulu Mata is a 30 y.o. female who presents for follow up of her right wrist/forearm pain. She was seen in the ED for this 9 days ago. She has been wearing a wrist splint, which helps a little shestill has pain in her wrist and up her forearm, ending around her elbow. She does not have any pain into her hand. She denies any injury. No other concerns today. PROBLEM LIST: Patient Active Problem List Diagnosis ??? Deficiency Vitamin D ??? Thrombosis Superficial Vein Lower Extremity Left CURRENT MEDICATIONS Current Outpatient Medications on File [...] Other (see comments) OBJECTIVE VITAL SIGNS BP 121/86 Pulse 79 Temp 36.3 ??C Resp 20 Ht 154 cm Wt 74 kg SpO2 99% BMI 31.21 kg/m?? PHYSICAL EXAMINATION General: Patient is alert, oriented and appears to be in no distress. Musculoskeletal: Upon examination of the right wrist, there is no bruising, swelling, erythema, or deformity noted. She has some mild tenderness on the dorsal aspect of her wrist, both radial and ulnar. Negative Tinel and Phalen's sign. Full range of motion. Pulses symmetric in BUE. Neurologic: No neurologic deficit noted. ASSESSMENT / PLAN #1 Tendonitis - PT Evaluate and treat; Future; Expected date: 06/08/2020 I recommend she continue with ice, ibuprofen as needed, and physical therapy of her wrist. She willfollow up if symptoms worsen rather than improve and we can consult ortho. This may take a couple weeks to improve and resolve, especially as she is right hand dominant. She will continue to wear her brace during the day, she does not like wearing it at night. documented in this encounter Plan of Treatment Not on filedocumented as of this encounter Visit Diagnoses Diagnosis Tendonitis - Primary documented in this encounter Care Teams Bark Peeler Relationship Specialty Start Date End Date Elsewhere, Pcp PCP - General Family Medicine 01/08/18 01/12/21 documented as of this encounter
--- OUTSIDE RECORDS SUMMARY | 2022-05-31 01:01 | XMS_ITS | Encounter Summary ---
:1990 Author Organization [facility] Address [address] [place] [address] Care Team Providers Name Role Phone Elsewhere, Pcp Primary Care Provider Unavailable Reason for Visit Reason Comments Sinus Symptoms ST, Cipriano ear pressure, conges tion; 3.5 wks ago Encounter Details Date Type Department Care Team Description 06/27/2019 Office Visit Urgent Care, [facility] (Primary [facility]) [place], [place] [address], [address] [place] [phone] (Wo rk) Social History Tobacco Use Types [...] or relatives? How often do you attend hoahaoism or Never 2021 rastafarian services? Do you belong to any clubs or No 11/20/2021 organizations such as hoahaoism groups, unions, fraternal or athletic groups, or [...] at Date Recorded Female 12/02/2021 5:19 PM [employer] SALES REPRESENTATIVE documented as of this encounter Last Filed Vital Signs Vital Sign Reading Time Taken Comments Blood Pressure 124/82 06/27/2019 3:04 PM CDT Pulse 70 06/27/2019 3:04 PM CDT Temperature 36.5 ??C (97.7 ??F) 06/27/2019 3:04 PM CDT Respiratory Rate 20 06/27/2019 3:04 PM CDT Oxygen Saturation 96% 06/27/2019 3:04 PM CDT Inhaled Oxygen Concentration - - Weight 73 kg (160 lb 15 oz) 06/27/2019 3:04 PM CDT Height - - Body Mass Index 31.43 03/28/2019 8:12 AM CDT documented in this encounter Patient Instructions Patient InstructionsSana Savage P.A.-C. - 06/27/2019 3:00 PM CDT Push fluids and get plenty of rest. Tylenol or ibuprofen as needed for pain or fever. Augmentin 875 mg twice daily times 10 days. Nasal saline flushes as needed for congestion. Mucinex OTC as needed for congestion. See primary care provider in follow-up 5 to 7 days if not improving, sooner if problems, to ED if worsening. Sana Saavge P.A.-C. documented in this encounter Progress Notes Sana Savage P.A.-C. - 06/27/2019 3:00 PM CDT Chief complaint: Sinusitis History of present illness: Lulu Mata is a 29 y.o. female presents with nasal congestion is been ongoing for 3 and half weeks. It is constant, moderate, nonradiating, and unchanged with OTC medications. She reports facial pressure and headaches. Her ears are bothering her as well. She took some Advil this morning with reliefof discomfort. Review of systems: Patient denies fever, chills, vomiting, diarrhea, rash, cough, shortness of breath, chest pain, abdominal pain, myalgia, or fatigue. Past Medical History: Diagnosis Date ??? Asthma NOS ??? Diabetes Mellitus Gestational 09/21/2012 Overview: Diet-controlled Current Outpatient Medications: ??? etonogestrel (NEXPLANON) 68 mg subdermal implant, 1 each by implant route continuously., Disp: ,Rfl: ??? pseudoephedrine (SUDAFED) 60 mg tablet, Take 60 mg by mouth as needed for congestion., Disp: , Rfl: ??? acetaminophen (TYLENOL ORAL), Take by mouth as needed., Disp: , Rfl: ??? albuterol (PROVENTIL HFA,VENTOLIN HFA) 90 mcg/actuation inhaler, Inhale 2 puffs every 6 (six) hours as needed for wheezing., Disp: 1 Inhaler, Rfl: 1 ??? guaiFENesin (MUCINEX) 600 mg 12 hr tablet, Take 600 mg by mouth as needed for cough., Disp: , Rfl: ??? rivaroxaban (XARELTO) 20 mg tablet, Take 1 tablet (20 mg total) by mouth daily with dinner. For 9 weeks. (Patient not taking: Reported on 06/27/2019 ), Disp: 63 tablet, Rfl: 0 Allergies Allergen Reactions ??? No Known Allergies Other (see comments) Objective: BP 124/82 (BP Location: Right arm, Patient Position: Sitting, Cuff Size: Regular) Pulse 70 Temp 36.5 ??C (Temporal) Resp 20 Wt 73 kg SpO2 96% ? No BMI 31.43 kg/m?? Vital signs are noted. Patient is afebrile. O2 sat is normal. The patient is alert oriented. She is in no acute distress. She is nontoxic. HEENT: Ears: Right tympanic membrane is red, bulging, with fluid noted inferiorly. Right external canal is clear. Left ear is normal. Nares: Moderate congestion without odor, external appearance is normal. Eyes: Pupils are equal, round, and reactive, extraocular movements are intact, no redness or discharge. Throat: Posterior pharynx pink and moist, no erythema or exudate. Uvula protrudes midline. Oral cavity is normal. Neck: Soft and supple, no adenopathy, full range of motion. Lungs: Clear to auscultation all gonzales. Cardiovascular: Regular rate and rhythm, no murmurs. Dermatologic: No rashes or lesions are seen. Assessment: Sinusitis Acute right serous otitis media Plan: Push fluids and get plenty of rest. Tylenol or ibuprofen as needed for pain or fever. Augmentin 875 mg twice daily times 10 days. Nasal saline flushes as needed for congestion. Mucinex OTC as needed for congestion. See primary care provider in follow-up 5 to 7 days if not improving, sooner if problems, to ED if worsening. Sana Savage P.A.-C. documented in this encounter Miscellaneous Notes Addendum Note - Sana Savage P.A.-C. - 06/27/2019 3:00 PM CDT Addended by: SANA SAVAGE on: 06/27/2019 04:19 PM Modules accepted: Orders documented in this encounter Plan of Treatment Not on filedocumented as of this encounter Visit Diagnoses Diagnosis Sinusitis Acute - Primary documented in this encounter Care Teams Cemetery Workers Supervisor Relationship Specialty Start Date End Date Elsewhere, Pcp PCP - General Family Medicine 01/08/18 01/12/21 documented as of this encounter
--- OUTSIDE RECORDS SUMMARY | 2022-05-31 01:01 | XMS_ITS | Encounter Summary ---
:1990 Author Organization [facility] Address [address] [place] [address] Care Team Providers Name Role Phone Elsewhere, Pcp Primary Care Provider Unavailable Reason for Visit Reason Comments PAYAL has had symptoms for 3-4 we eks Muscle Pain chest and back -05/31, has been using ibuprofen Encounter Details Date Type Department Care Team Description 10/31/2018 Emergency [facility] Valerie Malone, Infec kori Upper Department [facility] (Primary [address] Dx) [place] [phone] Social History Tobacco Use Types Packs/Day Years [...] or relatives? How often do you attend voodoo or Never 2021 adventist services? Do you belong to any clubs or No 11/20/2021 organizations such as voodoo groups, unions, fraternal or athletic groups, or [...] or slept in a fpc (including now)? Sex Assigned at Date Recorded Female 12/02/2021 5:19 PM ROVING WEIGHT GAUGER documented as of this encounter Last Filed Vital Signs Vital Sign Reading Time Taken Comments Blood Pressure 134/95 10/31/2018 6:52 PM ROVING WEIGHT GAUGER Pulse 81 10/31/2018 6:06 PM ROVING WEIGHT GAUGER Temperature 37.2 ??C (99 ??F) 10/31/2018 6:52 PM ROVING WEIGHT GAUGER Respiratory Rate 20 10/31/2018 6:06 PM ROVING WEIGHT GAUGER Oxygen Saturation 98% 10/31/2018 6:06 PM ROVING WEIGHT GAUGER Inhaled Oxygen Concentration - - Weight 73.3 kg (161 lb 9.6 oz) 10/31/2018 6:04 PM ROVING WEIGHT GAUGER Height 152.4 cm (5') 10/31/2018 6:04 PM ROVING WEIGHT GAUGER Body Mass Index 31.56 10/31/2018 6:04 PM ROVING WEIGHT GAUGER documented in this encounter Discharge Instructions AttachmentsThe following attachments cannot be sent through Care Everywhere. Upper Respiratory Infection Adult [id number] (Bengali)documented in this encounter Medications at Time of Discharge Medication Sig Dispensed Refills Start Date End Date albuterol (PROVENTIL Inhale 2 puffs every 1 Inhaler 1 10/3107/29/2019 HFA,VENTOLIN HFA) 90 6 (six) hours as mcg/actuation inhaler needed for wheezing. etonogestreL (NEXPLANON) 1 each by implant 0 12/2112/20/2021 68 mg subdermal implant route continuously. ibuprofen Take 600 mg by mouth 0 11/2018 (for_ADVIL,MOTRIN) 200 mg every 6 (six) hours capsule as needed for pain. documented as of this encounter ED Notes Valerie Malone M.D. - 10/31/2018 6:38 PM CST SUBJECTIVE CHIEF COMPLAINT/REASON FOR VISIT URI (has had symptoms for 3-4 weeks) and Muscle Pain (chest and back -05/31, has been using ibuprofen) HISTORY OF PRESENT ILLNESS Cough x1 week. No fevers. History of asthma but she has not been on inhalers for several years. Never intubated. Cough keeps her up at night a little bit more than it bothers her during the day. Not taking anything for it. Son with concurrent upper respiratory symptoms. REVIEW OF SYSTEMS Constitutional: Negative for fever. HENT: Positive for congestion. Respiratory: Positive for cough. Negative for shortness of breath and wheezing. Cardiovascular: Positive for chest pain (Sometimes with severe cough). OBJECTIVE Initial Vitals [10/31/18 1806] Temperature Pulse Rate Heart Rate Resp Rate Blood Pressure SpO2 37.7 ??C 81 -- 20 (!) 146/128 98 % Pain Score 8 PHYSICAL EXAMINATION Constitutional: No distress. HENT: Head: Normocephalic and atraumatic. Mouth/Throat: Mucous membranes are moist. Eyes: Pupils are equal, round, and reactive to light. Neck: Normal range of motion. Neck supple. Cardiovascular: Regular rhythm and normal heart sounds. No murmur heard. Pulmonary/Chest: Effort normal and breath sounds normal. Abdominal: Soft. Bowel sounds are normal. There is no tenderness. There is no rebound. Musculoskeletal: Normal range of motion. Neurological: She is alert and oriented to person, place, and time. Skin: Skin is warm and dry. Psychiatric: She has a normal mood and affect. Her behavior is normal. Thought content normal. Nursing note and vitals reviewed. ASSESSMENT/PLAN Impression and Plan Viral syndrome without adventitious pulmonary sounds or hypoxia or distress at this time. Needs inhaler refill.. Final Diagnoses: as of Oct 31 1837 Infection Upper Respiratory Valerie Malone M.D. 10/31/18 1840 NG WEIGHT GAUGER documented in this encounter Plan of Treatment Not on filedocumented as of this encounter Visit Diagnoses Diagnosis Infection Upper Respiratory - Primary documented in this encounter Care Teams Informaticist Relationship Specialty Start Date End Date Elsewhere, Pcp PCP - General Family Medicine 01/08/18 01/12/21 documented as of this encounter
--- OUTSIDE RECORDS SUMMARY | 2022-05-31 01:01 | XMS_ITS | Encounter Summary ---
:1990 Author Organization [facility] Address [address] [place] [address] Care Team Providers Name Role Phone Elsewhere, Pcp Primary Care Provider Unavailable Reason for Visit Reason Comments Sore Throat SX: in ER Sunday with josiane st inflammation; st started Encounter Details Date Type Department Care Team Description 07/26/2019 [facility] (Primary Dx) [place], [place] [address], [address] [place] [id number] [phone] (Wo rk) Social History Tobacco Use Types [...] do you attend zoroastrian or Never 2021 protestant services? 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 - 07/26/2019 9:45 AM CDT Push fluids and get plenty of rest. Tylenol or ibuprofen as needed for pain or fever. Gargles or lozenges as needed for comfort. See primary care provider in follow-up in 5 to 7 days if not improving, sooner if problems, to ED ifworsening. Mario Savage P.A.-C. documented in this encounter Progress Notes Mario Savage P.A.-C. - 07/26/2019 9:45 AM CDT SUBJECTIVE CHIEF COMPLAINT / REASON FOR VISIT Lulu Mata is a 29 y.o. female who presents for evaluation of Sore Throat (SX: in ER Sunday with chest inflammation; st started ). HISTORY OF PRESENT ILLNESS Sore Throat Location: Generalized Quality: Sore Onset quality: Sudden Duration: 3 days Timing: Constant Progression: Unchanged Chronicity: New Relieved by: None tried Worsened by: Swallowing and eating Ineffective treatments: None tried Associated symptoms: no abdominal pain, no adenopathy, no cough, no drooling, no ear pain, no eye discharge, no fever, no headaches, no postnasal drip, no rash, no rhinorrhea, no shortness of breath, no sinus congestion, no trouble swallowing and no voice change Risk factors: no exposure to strep, no exposure to mono and no recent dental procedure ROS: Patient denies fever, chills, vomiting, diarrhea, rash, cough, shortness of breath, weakness, abdominal pain, or fatigue. Past Medical History: Diagnosis Date ??? Asthma NOS ??? Diabetes Mellitus Gestational 09/21/2012 Overview: Diet-controlled Current Outpatient Medications: ??? acetaminophen (TYLENOL ORAL), Take by mouth as needed., Disp: , Rfl: ??? etonogestrel (NEXPLANON) 68 mg subdermal implant, 1 each by implant route continuously., Disp: ,Rfl: ??? guaiFENesin (MUCINEX) 600 mg 12 hr tablet, Take 600 mg by mouth as needed for cough., Disp: , Rfl: ??? predniSONE (DELTASONE) 20 mg tablet, Take 1 tablet (20 mg total) by mouth daily for 5 days., Disp: 5 tablet, Rfl: 0 ??? pseudoephedrine (SUDAFED) 60 mg tablet, Take 60 mg by mouth as needed for congestion., Disp: , Rfl: ??? rivaroxaban (XARELTO) 20 mg tablet, Take 1 tablet (20 mg total) by mouth daily with dinner. For 9 weeks., Disp: 63 tablet, Rfl: 0 ??? traMADol (ULTRAM) 50 mg tablet, Take 1 tablet (50 mg total) by mouth every 8 (eight) hours as needed for pain for up to 3 days Indications: Acute Pain., Disp: 9 tablet, Rfl: 0 ??? albuterol (PROVENTIL HFA,VENTOLIN HFA) 90 mcg/actuation inhaler, Inhale 2 puffs every 6 (six) hours as needed for wheezing., Disp: 1 Inhaler, Rfl: 1 Allergies Allergen Reactions ??? No Known Allergies Other (see comments) OBJECTIVE BP 127/87 (BP Location: Right arm, Patient Position: Sitting, Cuff Size: Regular) Pulse 79 Temp 36.6 ??C (Temporal) Comment: no OTC meds today Wt 71.5 kg SpO2 97% ? No BMI 30.78 kg/m?? PHYSICAL EXAM Vital signs are noted. Patient is afebrile. O2 sat is normal. HEENT: Ears: Tympanic membranes and external canals are clear bilaterally. Nares: Clear, no rhinitis, external appearance is normal. Eyes: Pupils are equal, round, and reactive, extraocular movements are intact, no redness or discharge. Throat: Posterior pharynx pink and moist, no erythema or exudate. Uvula protrudes midline. Oral cavity is normal. No odor. Neck: Soft and supple, no adenopathy, full range of motion. Lungs: Clear to auscultation all gonzales. Cardiovascular: Regular rate and rhythm, no murmurs. Abdomen: No CVAT bilaterally. Dermatologic: No scarlatina form rashes or other lesions are seen. Strep PCR negative ASSESSMENT: Viral Pharyngitis Plan: Patient is reassured. This likely viral illness. Should clear with time. Symptomatic treatments at this time. Push fluids and get plenty of rest. Tylenol or ibuprofen as needed for pain or fever. Gargles or lozenges as needed for comfort. See primary care provider in follow-up in 5 to 7 days if not improving, sooner if problems, to ED ifworsening. Mario Savage P.A.-C. documented in this encounter Plan of Treatment Not on filedocumented as of this encounter Procedures Procedure Name Priority Date/Time Associated Diagnosis Comme nts STREP GROUP A, PCR, Routine 07/26/2019 9:59 AM Re sults for this POCT CDT procedure are i n the results section. STREP GROUP A, PCR, Routine 07/26/2019 9:49 AM Pharyngitis Acu te Results for this POCT CDT procedure are i n the results section. documented in this encounter Results Strep Group A, PCR, Point of Care (07/26/2019 9:59 AM CDT) P athologist Signature Strep Group A, Negative Negative 07/26/2019 PCR, POCT 9:59 AM CDT Specimen Anatomical Collection Method Collection Time Receive d Time (Source) Location / / Volume Laterality Varies 07/26/2019 9:59 AM 9 CDT 10:11 AM CDT Generic [facility] POCT ORDERABLES - DEVICE Performing Organization Address City/State/ZIP Code Phon e Number [place] [id number] [place] [address] [facility] Strep Group A, PCR, Point of Care (07/26/2019 9:49 AM CDT) Analysis Performed At Patho logist Time Signature Strep Group A, Collected DEFAULT 07/26/2019 PCR, POCT 9:52 AM CDT Specimen Anatomical Collection Method Collection Time Receive d Time (Source) Location / / Volume Laterality Varies (Throat) 07/26/2019 9:49 AM 2018 9:52 CDT AM CDT Mario Savage P.A.-C. LAB POCT ORDERABLES - DEVICE Performing Organization Address City/State/ZIP Code Phon e Number [place] [id number] [place] [address] [facility] documented in this encounter Visit Diagnoses Diagnosis Pharyngitis Acute - Primary documented in this encounter Care Teams Health Care Facility Administrator Relationship Specialty Start Date End Date Elsewhere, Pcp PCP - General Family Medicine 01/08/18 01/12/21 documented as of this encounter
--- OUTSIDE RECORDS SUMMARY | 2022-05-31 01:01 | XMS_ITS | Encounter Summary ---
:1990 Author Organization [facility] Address [address] [place] [address] Care Team Providers Name Role Phone Elsewhere, Pcp Primary Care Provider Unavailable Reason for Visit Reason Comments Skin Problem pt is noted to have bump i n left armpit and left groin, both are painful, denies fever or chi lls, states the leg bump popped on sunday Encounter Details Date Type Department Care Team Description 08/07/2018 Emergency [place] [facility] Bull Calderon Car buncle Of Groin (Primary Dx); Department M.D. Carbuncle Axilla Left [address] [place] [id number] [phone] Social History Tobacco Use Types Packs/Day Years Used Date Smoking Tobacco: Never Smokeless Tobacco: Never Alcohol Habits Answer Date Recorded How often [...] do you attend hoahaoism or Never 2021 congregation services? 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 encounter Last Filed Vital Signs Vital Sign Reading Time Taken Comments Blood Pressure 135/99 08/07/2018 10:27 AM CDT Pulse 66 08/07/2018 10:27 AM CDT Temperature 36.7 ??C (98.1 ??F) 08/07/2018 10:27 AM CDT Respiratory Rate 20 08/07/2018 10:27 AM CDT Oxygen Saturation 96% 08/07/2018 10:27 AM CDT Inhaled Oxygen Concentration - - Weight 65.8 kg (145 lb) 08/07/2018 9:36 AM CDT Height 152.4 cm (5') 08/07/2018 9:36 AM CDT Body Mass Index 28.32 08/07/2018 9:36 AM CDT documented in this encounter Discharge Instructions AttachmentsThe following attachments cannot be sent through Care Everywhere.Skin Abscess [id number] (Polish)documented in this encounter Medications at Time of Discharge Medication Sig Dispensed Refills Start Date End Date sulfamethoxazole-trimetho Take 1 tablet by 20 tablet 0 07/2208/17/2018 prim (BACTRIM DS) 800-160 mouth every 12 mg per tablet (twelve) hours for 10 days. etonogestreL (NEXPLANON) 1 each by implant 0 12/2112/20/2021 68 mg subdermal implant route continuously. ibuprofen Take 600 mg by mouth 0 11/2018 (for_ADVIL,MOTRIN) 200 mg every 6 (six) hours capsule as needed for pain. traMADol (ULTRAM) 50 mg Take 1 tablet (50 mg 15 tablet 0 09/22/2018 tabletIndications: Acute total) by mouth Pain every 4 (four) hours as needed for pain Indications: Acute Pain. documented as of this encounter Procedure Notes Bull Calderon M.D. - 08/07/2018 10:40 AM CDTAssociated Order(s): INCISION AND DRAINAGE Procedure Incision and Drainage Date/Time: 08/07/2018 10:50 AM Performed by: BULL CALDERON Authorized by: BULL CALDERON Pre-procedure details: Indication: Abscess Location: Leg Leg location: Left thigh Length (cm): 2 Width (cm): 2 Site preparation: Povidone-iodine Sedation/Anesthesia (see MAR for exact dosages): Anesthesia method: Local infiltration Local anesthetic: Lidocaine 1% w/o epi Procedure details: Complexity: Simple Incision types: Stab incision Incision depth: Subcutaneous Incision length (cm): 1 Scalpel blade: 11 Wound management: Probed and deloculated Drainage: Bloody and purulent Drainage amount: Moderate Wound treatment: Wound left open Post-procedure details: Procedure completed successful: yes Tetanus status up to date: Up to date Complications: no immediate complications Bull Caldeorn M.D. 08/07/18 1051 documented in this encounter ED Notes Bull Calderon M.D. - 08/07/2018 10:40 AM CDT Images from the original note were not included. SUBJECTIVE CHIEF COMPLAINT/REASON FOR VISIT Skin Problem (pt is noted to have bump in left armpit and left groin, both are painful, denies fever or chills, states the leg bump popped on sunday) HISTORY OF PRESENT ILLNESS 28-year-old female presents to the emergency department for evaluation. Patient states she developeda bump on her left thigh last week, which ???popped on Sunday ???and had mild drainage since. However after this, over the last 4 days, is once again increase in size and tenderness. Patient also states that yesterday she noticed a small bump in her left axilla that is less than the size of a dime, those worried this could be the same thing. This lesion is also tender, worse with palpation. No drainage is present. Patient denies any fevers or chills. She denies the presence of lesions similar to this in the past. Here for evaluation. REVIEW OF SYSTEMS Constitutional: Negative for chills and fever. HENT: Negative. Respiratory: Negative. Cardiovascular: Negative. Gastrointestinal: Negative. Genitourinary: Negative. Musculoskeletal: Negative. Skin: Positive for lesions. Neurological: Negative. Hematological: Negative. Psychiatric/Behavioral: Negative. OBJECTIVE Initial Vitals [08/07/18 0937] Temperature Pulse Rate Heart Rate Resp Rate Blood Pressure SpO2 36 ??C 84 -- 20 137/88 96 % Pain Score 7 PHYSICAL EXAMINATION Constitutional: She appears well-developed and well-nourished. No distress. HENT: Head: Atraumatic. Mouth/Throat: Oropharynx is clear and moist. Mucous membranes are moist. Cardiovascular: Regular rhythm. Pulmonary/Chest: Effort normal and breath sounds normal. There is normal air entry. Abdominal: Soft. Bowel sounds are normal. Neurological: She is alert and oriented to person, place, and time. Skin: Skin is warm and normal color. Patient with a 2 cm x 2 cm carbuncle in the left groin tender to palpation, and a similar lesion is present in the left axilla smaller than the size of a dime and minimally tender and non erythematous.The lesion in the groin is erythematous, and there is a centralized location with a small amount of pus that can be expressed with pressure. No such structure exists in the patient's left axillary lesion. Psychiatric: She has a normal mood and affect. Her behavior is normal. ASSESSMENT/PLAN Impression and Plan Impression,, cul left groin, left axilla Plan: Bactrim double-strength 1 p.o. b.i.d. for 10 days. Ultram 50 mg 1 p.o. q.4 hours for pain rating 7-10/10 severity. Tylenol 500 mg 1 p.o. every 4 hr for pain rating 3-6/10 severity. If patient's symptoms worsen, I have advised her to return to the emergency department or be seen at clinic tomorrow for further evaluation. All the patient's questions were answered to her satisfaction prior to leaving the ER.. ED Course as of Aug 07 1058SunAug 07, 2018 1020 I and D performed as noted in the note. The carbuncle of the left thigh had multiple loculations that were probed and de-loculated. Patient tolerated procedure well with expression of moderate bloody pus. The left axillary lesion was not I and D'ed as this is minimally tender, non-erythematous aswell as significantly smaller in size. I have advised that the patient apply warm/hot compresses to the area to promote drainage. If the patient's lesions increase in size despite IM antibiotic and oral Bactrim therapy, I have advised the patient to return to the emergency department tomorrow or be seen at her primary care clinic Final Diagnoses: as of Oct 17 1058 Carbuncle Of Groin Carbuncle Axilla Left Bull Calderon M.D. 08/07/18 1058 documented in this encounter Plan of Treatment Not on filedocumented as of this encounter Procedures Procedure Name Priority Date/Time Associated Diagnosis Comme nts INCISION AND Routine 08/07/2018 10:40 AM Results for this DRAINAGE CDT procedure are i n the results section. documented in this encounter Results Incision and Drainage (08/07/2018 10:40 AM CDT) Narrative Bull Calderon M.D. - 08/07/2018 10:40 AM CDT Bull Calderon M.D. ? 08/07/2018 10:51 AM Incision and Drainage Date/Time: 08/07/2018 10:50 AM Performed by: BULL CALDERON Authorized by: BULL CALDERON Pre-procedure details: ??Indication: ??Abscess ??Location: ??Leg ??Leg location: ??Left thigh ??Length (cm): ??2 ??Width (cm): ??2 ??Site preparation: ??Povidone-iodine Sedation/Anesthesia (see MAR for exact d osages): ??Anesthesia method: ??Local infiltrati on ??Local anesthetic: ??Lidocaine 1% w/o epi Procedure details: ??Complexity: ??Simple ??Incision types: ??Stab incision ??Incision depth: ??Subcutaneous ??Incision length (cm): ??1 ??Scalpel blade: ??11 ??Wound management: ??Probed and delocu lated ??Drainage: ??Bloody and purulent ??Drainage amount: ??Moderate ??Wound treatment: ??Wound left open Post-procedure details: ??Procedure completed successful: yes ?Tetanus status up to date: ??Up to da te ??Complications: no immediate complicat ions ?? Bull Calderon M.D. PROCEDURE/MINOR SURGICAL ORD ERABLES documented in this encounter Visit Diagnoses Diagnosis Carbuncle Of Groin - Primary Carbuncle Axilla Left documented in this encounter Administered Medications Inactive Administered Medications - up to 3 most recent administrations Medication Order MAR Action Action Date Dose Rate Site cefTRIAXone (ROCEPHIN) 100 Given 08/07/2018 10:16 AM CDT 2,000 m g mg/mL injection - ADS Override Pull Starting on Sun08/07/18 at 1006, For 1 dose, Created by cabinet override Adminster IV push over 3 minutes. Add 20 mL NS to 2 gram vial for a final concentration of 100 mg/mL. lidocaine (PF) (XYLOCAINE) 10 mg/mL (1 %) Given 08/07/2018 10:16 AM CDT 4.2 mg injection - ADS Override Pull Starting on Sun08/07/18 at 0951, For 1 dose, Created by cabinet override documented in this encounter Active and Recently Administered Medications Times are shown in CDT. Scheduled Medication Order 08/05/2018 08/06/2018 08/07/2018 cefTRIAXone injection 2 g (ROCEPHIN) 1007 (Due) 2 g, intramuscular, Once, Sun08/07/18 a t 1007, For 1 dose, For IM injection ONLY Recon with NaCl 0.9% in the amount listed for the vial. Draw up and administer as indicated for the dose. 250 mg via l: add 0.9 mL 1 g vial: add 2.1 mL 500 m g vial: add 1 mL 2 g vial: add 4.2 mL , Drug Monitoring Program: Pharmacist to adjust medication dosing based on indication and drug clearance factors., Indications: Skin and Soft Tissue Infection No Frequency Medication Order 08/05/2018 08/06/2018 08/07/2018 cefTRIAXone (ROCEPHIN) 100 mg/mL injection - ADS Override Pull ( COMPLETED) 1016 (Given - Provider: Padmini Costello R.N. - Comment: 2g divided into two injections and given on in ea. buttock) Starting on Sun08/07/18 at 1006, For 1 dose, Created by cabinet override Adminster IV push over 3 minutes. Add 20 mL NS to 2 gram vial for a final concentration of 100 mg/mL. lidocaine (PF) (XYLOCAINE) 10 mg/mL (1 % ) injection - ADS Override Pull (COMPLETED) 1016 (Given - Provid er: Padmini Costello R.N.) Starting on 10/17/18 at 0951, For 1 dose, Created by kayt override documented in this encounter Care Teams Automobile Sales Consultant Relationship Specialty Start Date End Date Elsewhere, Pcp PCP - General Family Medicine 01/08/18 01/12/21 documented as of this encounter
--- OUTSIDE RECORDS SUMMARY | 2022-05-31 01:01 | XMS_ITS | Encounter Summary ---
:1990 Author Organization [facility] Address [address] [place] [address] Care Team Providers Name Role Phone Unavailable Primary Care Provider Unavailable Encounter Details Date Type Department Care Team Description 06/14/2017 Hospital Encounter HX [facility] Essence Yin M.D. [address] [place], [place] [phone] (Wo rk) Social History Tobacco Use Types Packs/Day Years Used Date Smoking Tobacco: Never Alcohol Habits Answer Date Recorded [...] or relatives? How often do you attend sikhism or Never 2021 jain services? Do you belong to any clubs or No 11/20/2021 organizations such as sikhism groups, unions, fraternal or athletic groups, or [...] at Date Recorded Female 12/02/2021 5:19 PM [employer]ANN[employer] WORK[employer] documented as of this encounter Last Filed Vital Signs Vital Sign Reading Time Taken Comments Blood Pressure 135/87 06/14/2017 7:20 PM CDT Pulse 97 06/14/2017 7:20 PM CDT Temperature - - Respiratory Rate 16 06/14/2017 7:20 PM CDT Oxygen Saturation - - Inhaled Oxygen Concentration - - Weight 74.9 kg (165 lb 2 oz) 06/14/2017 6:37 PM CDT Height - - Body Mass Index 32 01/15/2017 11:02 PM CDT documented in this encounter Discharge Summaries Andrew Brock R.N. - 06/14/2017 9:06 PM CDT ED Depart Summary [facility] Emergency Department Clinical Discharge Summary PERSON INFORMATION Name DILLAN MATA Age 27 Years 1990 12:00 AM Sex Female Language Beninese PCP PCP, ELSEWHERE Marital Status Unknown Visit Id Visit Reason Foot injury - Minor; FOOT PAIN Specialty Enc Type Emergency Med Service Emergency Medicine Referred by Track Group [facility] ED Discharge 06/14/2017 7:45 PM Tracking Id [id number] Checkout 06/14/2017 7:45 PM Checkin 06/14/2017 6:17 PM Acuity 4 -Less Urgent Dispo Type * Discharged to Home or Self Care Arrival 06/14/2017 6:17 PM Reg Status LOS 000 01:28 Address: [address] [place] [phone] Comment: PROVIDER INFORMATION Provider Role Provider Contact Time CHAVA KUHN OB/GYN Nurse 06/14/17 18:44 CHU ADKINS MD ED Provider 06/14/17 18:52 ANDREW BROCK OB/GYN Nurse 06/14/17 19:21 DIAGNOSIS Sprain Foot Initial L Comment: PATIENT EDUCATION INFORMATION Instructions: SPRAIN FOOT Follow up: With: Address: When: Follow up with primary care in 1 week if not improving. Return to the ED for increasing pain or swelling. Within As Needed Source: [facility] POWERCHART Document Id: [id number] Andrew rBock R.N. - 06/14/2017 9:06 PM CDT ED Discharge Instructions [address] [address] Name: DILLAN MATA Date of : 1990 12:00 AM Visit Date: 06/14/2017 6:17 PM [facility] Number: [phone] Address: [address] [facility] [phone] Primary Care Provider: PCPBHARATHI IMPORTANT: [facility] in [place] would like to thank you for allowing us to assistyou with your healthcare needs. The following includes patient education materials and information regarding your injury/illness. Diagnosis: Sprain Foot Initial L Follow-Up Instructions: With: Address: When: Follow up with primary care in 1 week if not improving. Return to the ED for increasing pain or swelling. Within As Needed Your Upcoming Appointments: Date Time Location Provider No Appointments found Patient Education Materials: Sprain, Foot A sprain is a stretching or tearing of the ligaments that hold a joint together. There are no brokenbones. Sprains take from 3--6 weeks to heal. A sprain may be treated with a splint, walking cast or special boot. Mild sprains may not require any additional support. Home care The following guidelines will help you care for your injury at home: ?? Keep your leg elevated when sitting or lying down. This is very important during the first 48 hours to reduce swelling. Stay off the injured foot as much as possible until you can walk on it withoutpain. If needed, you may use crutches during the first week for this purpose. (Crutches can be rented at many pharmacies or surgical/orthopedic supply stores). ?? You may be given a cast shoe to wear to prevent movement in your foot. If not, you can use a sandal or any shoe that does not put pressure on the injured area until the swelling and pain go away. Ifusing a sandal, be careful not to strike your foot against anything, since another injury could makethe sprain worse. ?? Apply an ice pack (ice cubes in a plastic bag, wrapped in a towel) over the injured area for 20 minutes every 1--2 hours the first day. You should continue with ice packs 3--4 times a day for the next two days. Continue the use of ice packs for relief of pain and swelling as needed. ?? You may use acetaminophen or ibuprofen to control pain, unless another medicine was prescribed. If you have chronic liver or kidney disease or ever had a stomach ulcer or GI bleeding, talk with yourdoctor before using these medicines. ?? If you were given a splint or cast, keep it dry. Bathe with your splint/cast well out of the water, protected with a large plastic bag, rubber-banded at the top end. If a fiberglass splint or cast gets wet, you can dry it with a hair-dryer. ?? You may return to sports after healing, when you can run without pain. Follow-up care Follow up with your doctor as directed. Any X-rays you had today dont show any broken bones, breaks, or fractures. Sometimes fractures dont show up on the first X-ray. Bruises and sprains can sometimes hurt as much as a fracture. These injuries can take time to heal completely. If your symptoms dont improve or they get worse, talk with your doctor. You may need a repeat X-ray. When to seek medical care Get prompt medical attention if any of the following occur: ?? The plaster cast or splint gets wet or soft ?? The fiberglass cast or splint gets wet and does not dry for 24 hours ?? Pain or swelling increases, or redness appears ?? Toes become cold, blue, numb, or tingly ?? [id number] [facility], [address] [place] [address]. All rights reserved. This information is not intended as a substitute for professional medical care. Always follow your healthcare professional's instructions. Consider Using Patient Online Services Patient Online Services is a secure online and Mobile application that lets you: ?? View lab and test results ?? View portions of your medical record including clinical notes, immunizations and discharge summa emily ?? Request an appointment or medication refill ?? Review your appointment schedule ?? Send secure messages to your care team Its easy to create an account if you dont have one. Go to [email or web address] and click on Create Your Account. Then, follow the directions to complete the online form. Youll be asked for your [facility] number which you can find at the top of this document. ED Tests and Procedures: Order Status XR Foot Left 3 or more views Completed XR Foot Left 2 views Canceled Discharge Prescriptions & Home Medications: Medication/Strength Dose Route Frequency Indications/Special Instructions/Comments/Notes Misc Prescription (Misc Prescription) implanted control Attention: If you have any medications at home not on this list, DO NOT take them until you contact your provider for clarification. Give a copy of your medication list to your primary care provider. Update your medication list any time medications or doses are changed and carry your medication list at all times in case of emergency. IMPORTANT: We examined and treated you today on an emergency basis only. This was not a substitute for, or an effort to provide, complete medical care. In most cases, you must let your doctor check youagain. Tell your doctor about any new or lasting problems. We cannot recognize and treat all injuries or illnesses in one Emergency Department visit. If you had special tests, such as EKG's or X- rays, we will review them again within 24 hours. We will call you if there are any new suggestions. Please follow the instructions above carefully. If you are being transferred to another facility, your follow up plan of care will be determined by the receiving facility. If you are a patient that is being discharged from the Emergency Department after receiving narcotics or other medications that may impair your judgment you may be a risk to yourself or others if you operate a motor vehicle. We recommend that you arrange a ride home with a responsible green party. All, DILLAN MATA , or responsible green party have received this information and my questions have been answered. I have discussed any challenges I see with this plan with the nurse or physician. Patient Signature or Responsible Constitution Party/Relationship Date Time Provider Signature Date Time IMPORTANT: We examined and treated you today on an emergency basis only. This was not a substitute for, or an effort to provide, complete medical care. In most cases, you must let your doctor check youagain. Tell your doctor about any new or lasting problems. We cannot recognize and treat all injuries or illnesses in one Emergency Department visit. If you had special tests, such as EKG's or X- rays, we will review them again within 24 hours. We will call you if there are any new suggestions. Please follow the instructions above carefully. If you are being transferred to another facility, your follow up plan of care will be determined by the receiving facility. If you are a patient that is being discharged from the Emergency Department after receiving narcotics or other medications that may impair your judgment you may be a risk to yourself or others if you operate a motor vehicle. We recommend that you arrange a ride home with a responsible green party. I, DILLAN MATA , or responsible green party have received this information and my questions have been answered. I have discussed any challenges I see with this plan with the nurse or physician. Patient Signature or Responsible Constitution Party/Relationship Date Time Provider Signature Date Time This document has images extracted. Please consider using [employer] for all your patient education needs. Source: [employer] Document Id: [id number] Andrew Brock R.N. - 06/14/2017 7:45 PM CDT ED Disposition Summary ED Disposition Summary Entered On: 06/14/2017 20:33 CDT Performed On: 06/14/2017 19:45 CDT by ANDREW BROCK OB/GYN Disposition Summary Present in Room During Exam/Procedure : Alone Mode of Discharge : Ambulatory Transportation : Private vehicle Discharge From ED With : Home Med List Printed Discharge Instructions Given to Patient : Yes Patient Status at Discharge from ED : Improved 30 Minutes Critical Care : No ANDREW BROCK RN - 06/14/2017 20:33 CDT Source: [employer] Document Id: [id number] CDT!9 documented in this encounter Medications at Time of Discharge Medication Sig Dispensed Refills Start Date End Date etonogestreL (NEXPLANON) 1 each by implant 0 12/2112/20/2021 68 mg subdermal implant route continuously. documented as of this encounter ED Notes Andrew Brock R.N. - 06/14/2017 7:45 PM CDT ED Pain Assessment ED Pain Assessment Entered On: 06/14/2017 21:05 CDT Performed On: 06/14/2017 19:45 CDT by ANDREW BROCK RN Pain Assessment Pain Symptoms : Yes ANDREW BROCK RN - 06/14/2017 21:05 CDT Pain Scale Pain Scale Verbal 0-10 : Open ANDREW BROCK RN - 06/14/2017 21:05 CDT Pain Pain Assessment Grid Pain 1 Pain 2 Location : Foot Heel Intensity : 5 5 Acceptable Intensity : 5 5 ANDREW BROCK RN - 06/14/2017 21:05 CDT ANDREW BROCK RN - 06/14/2017 21:05 CDT Griffith Griffith Agitation Sedation Scale (RASS) : Alert and calm RASS Score : 0 ANDREW BROCK RN - 06/14/2017 21:05 CDT [facility] Document Id: [id number] CDT!18 Andrew Brock R.N. - 06/14/2017 7:30 PM CDT ED Treatments and Procedures ED Treatments and Procedures Entered On: 06/14/2017 22:10 CDT Performed On: 06/14/2017 19:30 CDT by ANDREW BROCK RN Orthopedic Tx Orthopedic Treatment Instructions Given Treatment Instructions Given : Crutch walking instructions given, Ice/Heat application instructions given, Patient demonstrates comprehension of instructions, Patient verbalizes comprehension of instructions ANDREW BROCK RN - 06/14/2017 22:10 CDT Source: [facility] POWERCHART Document Id: [id number] CDT!5 Andrew Brock R.N. - 06/14/2017 7:21 PM CDT ED Nurse Reassess ED Nurse Reassess Entered On: 06/14/2017 19:23 CDT Performed On: 06/14/2017 19:21 CDT by ANDREW BROCK RN Pain Assessment Pain Symptoms : Yes ANDREW BROCK RN - 06/14/2017 19:21 CDT Pain Scale Pain Scale Verbal 0-10 : Open ANDREW BROCK RN - 06/14/2017 19:21 CDT Pain Pain Assessment Grid Pain 1 Pain 2 Location : Foot Heel Intensity : 5 5 ANDREW BROCK RN - 06/14/2017 19:21 CDT ANDREW BROCK RN - 06/14/2017 19:21 CDT Comfort Measures Comfort Measures Grid Comfortable Environment : Yes ANDREW BROCK RN - 06/14/2017 19:21 CDT Patient Response : Pt back from radiology, resting in bed. States her pain improved to a 5/10, she thinks the ibuprofen she took before she came in helped. ANDREW BROCK RN - 06/14/2017 19:21 CDT Griffith Griffith Agitation Sedation Scale (RASS) : Alert and calm RASS Score : 0 ANDREW BROCK RN - 06/14/2017 19:21 CDT Resp Reassess Respiratory Patient Stated Symptoms : None ANDREW BROCK RN - 06/14/2017 19:21 CDT Harmony Coma Eye Opening Response Harmony : Spontaneously Best Verbal Response Harmony : Oriented Best Motor Response Sophie : Obeys simple commands Sophie Coma Score : 15 ANDREW BROCK RN - 06/14/2017 19:21 CDT Behavioral Health Screen/Safety Reassmt Affect/Behavior : Calm, Cooperative, Appropriate ANDREW BROCK RN - 06/14/2017 19:21 CDT GI Reassess GI Patient Stated Symptoms : None ANDREW BROCK RN - 06/14/2017 19:21 CDT Musculoskeletal Reassess Musculoskeletal Joint Assessment Grid Joint Assessment #1 Location : Ankle, left Assessment : Edema present, Tender to palpation Neurovascular Status : Neurovascular intact distal to injury, Pulses distal to injury palpable, Skindistal to injury warm and pink ANDREW BROCK RN - 06/14/2017 19:21 CDT [facility] Document Id: [id number] CDT!37 Chu Adkins M.D. - 06/14/2017 6:52 PM CDT Foot injury - Minor Patient: DILLAN MATA Age: 27 years Sex: Female : 1990 Author: CHU ADKINS MD Attachments: None Associated Diagnosis: Sprain Foot Initial L Basic Information Additional information: Chief Complaint from Nursing Triage Note : Chief Complaint Description 06/14/2017 18:37 CDT Chief Complaint Description 27 y/o f presents c/o L foot pain on top and heel after falling off some playground equipment 1 week ago. Pt says today foot more swollen and painful toweight bear, rates pain a 7. Heel looks bruised and slight swelling top of foot. (Modified) . History of Present Illness The patient presents with left, foot injury. The onset was 1 weeks ago. The course/duration of symptoms is constant. Type of injury: fall. Location: Left foot. The character of symptoms is pain and swelling, no bleeding, not tingling and not numbness. The degree at present is moderate. There are exacerbating factors including movement and weight bearing. The relieving factor is analgesics. The location where the incident occurred [place] at the park. Risk factors consist of none. Prior episodes: none. Therapy today: none. Associated symptoms: none. Review of Systems Constitutional symptoms: Negative except as documented in HPI. Musculoskeletal symptoms: Negative except as documented in HPI. Neurologic symptoms: Negative except as documented in HPI. Health Status Allergies: Allergic Reactions (All) NKA. Past Medical/ Family/ Social History Medical history: Negative. Surgical history: No active procedure history items have been selected or recorded.. Family history: No family history items have been selected or recorded.. Social history: Alcohol use: Denies, Tobacco use: Denies, Drug use: Denies. Physical Examination Vital Signs: Vital Signs 06/14/2017 18:37 CDT Temperature Core 36.9 DegC Peripheral Pulse Rate 98 /min Respiratory Rate 18 /min SpO2 99 % Systolic Blood Pressure 136 mmHg Diastolic Blood Pressure 92 mmHg >HHI Mean Arterial Pressure 107 mmHg . Musculoskeletal: Normal ROM. normal strength. no deformity. Normal ankle ROM however foot is apprehensive to move. No numbness or tingling. Minor swelling.. Neurological: Normal sensory observed and normal motor observed. Psychiatric: Cooperative. Medical Decision Making Differential Diagnosis:Ankle sprain, foot sprain, foot fracture. OrdersLaunch Orders Radiology: XR Foot Left 2 views (Order Processing): 06/14/2017 18:53 CDT, injury, Stat, Patient Bed, Once, 06/14/2017 18:53 CDT, [facility] Urology. Radiology results:* Final Report * Reason For Exam injury Report EXAM: XR Foot Left 3 or more views INDICATION: injury The osseous structures and joint spaces are normally aligned and well maintained, without evidence of fracture, dislocation or significant degeneration. 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 The surrounding soft tissues are normal. IMPRESSION: Normal study. Signature Line Final Dictated: 06/14/2017 7:16 pm DAVID SEPULVEDA MD Signed (Electronic Signature): 06/14/2017 7:18 pm Transcribed by: ROSHAN Technologist: NAYANA ESPOSITO RT(R)(CT) [id number] This document has an image Result type: XR Foot Left 3 or more views Result date: June 14, 2017 19:14 CDT Result status: Auth (Verified) Result title: XR Foot Left 3 or more views Performed by: DAVID SEPULVEDA MD on June 14, 2017 19:18 CDT Verified by: DAVID SEPULVEDA MD on June 14, 2017 19:18 CDT Encounter info: [id number], [facility], Emergency, 06/14/2017 - . Impression and Plan Diagnosis Sprain Foot Initial L (Discharge, Medical) Plan Condition: Stable. Disposition: Discharged: Time 06/14/2017 19:35:00, to home. Limitations: Limited activity. Follow up with: Primary Care Physician, In: 1 week(s). Counseled: Patient. Electronically Signed By: CHU ADKINS MD On: 06/14/2017 07:35 PM Modified by and Electronically Signed by: CHU ADKINS MD On: 06/14/2017 07:35 PM Source: [facility] POWERCHART Document Id: [id number]} Chava Kuhn R.N. - 06/14/2017 6:37 PM CDT ED Primary Assessment Document Has Been Updated ED Primary Assessment Entered On: 06/14/2017 18:44 CDT Performed On: 06/14/2017 18:37 CDT by CHAVA KUHN RN Reason For Visit (As Of: 06/14/2017 19:11:35 CDT) Diagnoses(Active) Foot injury - Minor Date: 06/14/2017 ; Diagnosis Type: Reason For Visit ; Confirmation: Complaint of; Clinical Dx: Foot injury - Minor ; Classification: Medical ; Clinical Service: Emergency medicine ; Code: PNED ; Probability: 0 ; Diagnosis Code: [id number] Triage Triage Treatments : Ice to affected area CHAVA KUHN RN - 06/14/2017 19:11 CDT Chief Complaint Description : 27 y/o f presents c/o L foot pain on top and heel after falling off some playground equipment 1 week ago. Pt says today foot more swollen and painful to weight bear, ratespain a 7. Heel looks bruised and slight swelling top of foot. CHAVA KUHN RN - 06/14/2017 18:44 CDT Information Given By : Patient, Mother Present in Room During Exam/Procedure : Mother Mode of Arrival ED : Ambulatory Track : Trauma Other Languages : Beninese Vital Signs Assessed : Yes Treatments Prior to Arrival : Ibuprofen, Ice to affected area Are you ? : No Is Patient Female and 13-50 no hysterectomy : Yes Status : Patient denies CHAVA KUHN RN - 06/14/2017 18:37 CDT Vital Signs Temperature Core : 36.9 DegC(Converted to: 98.4 DegF) Peripheral Pulse Rate : 98 /min Respiratory Rate : 18 /min Systolic Blood Pressure : 136 mmHg Diastolic Blood Pressure : 92 mmHg (>HHI) NIBP Mean : 107 mmHg SpO2 : 99 % Actual Weight : 74.9 kg Actual Weight Conversion to Pounds : 164.78 lb Weight Source : Standing scale CHAVA KUHN RN - 06/14/2017 18:37 CDT Pain Assessment Pain Symptoms : Yes CHAVA KUHN RN - 06/14/2017 18:37 CDT Pain Scale Pain Scale Verbal 0-10 : Open CHAVA KUHN RN - 06/14/2017 18:37 CDT Pain Pain Assessment Grid Pain 1 Pain 2 Location : Foot Heel Laterality : Left Left Intensity : 7 7 Aggravating Factors : Other: walking on it Other: walking on it CHAVA KUHN RN - 06/14/2017 18:37 CDT CHAVA KUHN RN - 06/14/2017 18:37 CDT Comfort Measures Comfort Measures Grid Comfortable Environment : Yes Positioning : Yes Rest : Yes CHAVA KUHN RN - 06/14/2017 18:37 CDT ED Physician Notification Time ED Physician Notification Time : 06/14/2017 18:43 CDT CHAVA KUHN RN - 06/14/2017 18:37 CDT ALONZO ALONZO Level 1 : No ALONZO Level 2 : No ALONZO Level 3 : One CHAVA KUHN RN - 06/14/2017 18:37 CDT DCP GENERIC CODE Tracking Group : [facility] ED Tracking Acuity : 4 -Less Urgent CHAVA KUHN RN - 06/14/2017 18:37 CDT Allergy (As Of: 06/14/2017 18:44:10 CDT) Allergies (Active) NKA Estimated Onset Date: Unspecified ; Created By: ANGELICA STEWART; Reaction Status: Active ; Category: Drug ; Substance: NKA ; Type: Allergy ; Updated By: ANGELICA STEWART; Reviewed Date: 06/14/2017 18:43 CDT ID Screen Drug Resistant Organism : No CHAVA KUHN RN - 06/14/2017 18:37 CDT Immunizations Immunizations Current : Yes Last Tetanus : < 5 years CHAVA KUHN RN - 06/14/2017 18:37 CDT Respiratory Airway : Patent Respirations : Unlabored Respiratory Pattern : Regular CHAVA KUHN RN - 06/14/2017 18:37 CDT Cardiovascular Heart Rhythm : Regular Skin Color : [place] Skin Description : Normal Skin Temperature : Warm CHAVA KUHN RN - 06/14/2017 18:37 CDT Neurological Last Well Time Known : Not applicable Level of Consciousness : Alert Orientation : Oriented x 3 Characteristics of Speech : Clear CHAVA KUHN RN - 06/14/2017 18:37 CDT ED Psychosocial Affect/Behavior : Calm Domestic Abuse Concerns : None Behavioral Health Screen/Safety Assmt : No CHAVA KUHN RN - 06/14/2017 18:37 CDT Gastrointestinal Nutrition ED : Adequate CHAVA KUHN RN - 06/14/2017 18:37 CDT Musculoskeletal Fall Prevention Education Provided : CHAVA PLAZA RN - 06/14/2017 18:37 CDT Social Habits Smoking Status : Never smoker Tobacco 2A : No Tobacco Use/Currently Using : No Tobacco Use/Last 30 Days : No Tobacco Use/Last 12 months : No CHAVA KUHN RN - 06/14/2017 18:37 CDT Alcohol Use Grid Alcohol Use : No CHAVA KUHN RN - 06/14/2017 18:37 CDT Recreational Drug Use Grid Drug Use : None CHAVA KUHN RN - 06/14/2017 18:37 CDT Source: [facility] [employer] Document Id: [id number] CDT!3 documented in this encounter Miscellaneous Notes Miscellaneous - Andrew Brock RHarish - 06/14/2017 7:45 PM CDT Valuables/Belongings Valuables/Belongings Entered On: 06/14/2017 20:33 CDT Performed On: 06/14/2017 19:45 CDT by ANDREW BROCK RN Valuables/Belongings Belongings Sent Home With : All sent w/pt at d/c Home Medication Disposition : None brought in with patient ANDREW BROCK RN - 06/14/2017 20:32 CDT Source: [employer] Document Id: [id number] CDT!4 Miscellaneous - Conversion, Historical Provider Ser - 06/14/2017 7:45 PM CDT Coding Summary-Paper Based CODING DATE: 06/26/2017 FINAL [facility] [place] [facility] STATUS: * Discharged to Home or Self Care PAYOR: Medicaid ADMIT DX: [id number] injury of left foot, initial encounter REASON FOR VISIT DX: S99.922A Unspecified injury of left foot, initial encounter FINAL DX: PRINCIPAL: S93.602A Unspecified sprain of left foot, initial encounter SECONDARY: W09.8XXA Fall on or from other playground equipment, initial encounter Y92.[address] of occurrence of the external cause PROCEDURES DOCTOR NAME DATE NOTE: The code number assigned matches the documented diagnosis and / or procedure in the patient's chart. However, the narrative phrase printed from the coding software may appear abbreviated, or result in slightly different terminology. Coded By: BRIEN LORD Date Saved: 06/26/2017 09:17 am Source: [employer] Document Id: [id number] documented in this encounter Plan of Treatment Not on filedocumented as of this encounter Procedures Procedure Name Priority Date/Time Associated Diagnosis Comme nts DX FOOT LEFT 3+ Routine 06/14/2017 7:12 PM Result s for this VIEWS CDT procedure are i n the results section. documented in this encounter Results DX Foot Left 3+ Views (06/14/2017 7:12 PM CDT) Anatomical Region Laterality Modality Lower Extremity, Foot Left Radiographic Imagi ng Specimen (Source) Anatomical Collection Method Collection Time Re ceived Time Location / / Volume Laterality 06/14/2017 7:12 PM CDT Addenda Addendum by Provider, Minoo Stewart 06/14/2017 7:12 PM CDT RAD^^^MA XR Foot Left 3 or more views 06/14/2017 19:12:28 XR Foot Left 3 or more views Addendum by Provider, Minoo Stewart o monica 06/14/2017 7:12 PM CDT RAD^^^MA XR Foot Left 3 or more views 06/14/2017 19:12:28 XR Foot Left 3 or more views Impressions 06/14/2017 7:18 PM CDT Normal study. Narrative 06/14/2017 7:18 PM CDT EXAM: XR Foot Left 3 or more views INDICATION: injury The osseous structures and joint spaces are normally aligned and well maintained, without evidence of fracture , dislocation or significant degeneration. 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 The surrounding soft tissues are normal. Procedure Note David Sepulveda M.D. / Provider, Andrew becerril M.D. - 07/26/2017 EXAM: XR Foot Left 3 or more views INDICATION: injury The osseous structures and joint spaces are normally aligned and well maintained, without evidence of fracture , dislocation or significant degeneration. 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 The surrounding soft tissues are normal. IMPRESSION: Normal study. Nayana Mackenzie(Nicholas)(CT), RDebbie(R)(M) IMG DIAGNOSTIC I MAGING PROCEDURES documented in this encounter Visit Diagnoses Not on filedocumented in this encounter
--- OUTSIDE RECORDS SUMMARY | 2022-05-31 01:01 | XMS_ITS | Encounter Summary ---
:1990 Author Organization [facility] Address [address] [place] [address] Care Team Providers Name Role Phone Elsewhere, Pcp Primary Care Provider Unavailable Reason for Visit Reason Comments Sinus Symptoms 30 + days ago Encounter Details Date Type Department Care Team Description 12/12/2018 Office Visit Express Care in [facility] Mario Savage, Inf ection [place], [place] P.A.-C. Respiratory (Primary [address], [place]) [facility] [address] [place], [place] [phone] (Wo rk) Social History Tobacco Use Types [...] or relatives? How often do you attend samaritan or Never 2021 mormonism services? Do you belong to any clubs or No 11/20/2021 organizations such as samaritan groups, unions, fraternal or athletic groups, or [...] at Date Recorded Female 12/02/2021 5:19 PM AMBULATORY CARE COORDINATOR documented as of this encounter Last Filed Vital Signs Vital Sign Reading Time Taken Comments Blood Pressure 136/92 12/12/2018 7:15 PM AMBULATORY CARE COORDINATOR Pulse 86 12/12/2018 7:15 PM AMBULATORY CARE COORDINATOR Temperature 36.9 ??C (98.4 ??F) 12/12/2018 7:15 PM AMBULATORY CARE COORDINATOR Respiratory Rate - - Oxygen Saturation 96% 12/12/2018 7:15 PM AMBULATORY CARE COORDINATOR Inhaled Oxygen Concentration - - Weight 72 kg (158 lb 11.7 oz) 12/12/2018 7:15 PM AMBULATORY CARE COORDINATOR Height - - Body Mass Index 31 10/31/2018 6:04 PM AMBULATORY CARE COORDINATOR documented in this encounter Patient Instructions Patient InstructionsMario Savage P.A.-C. - 12/12/2018 7:30 PM CST Push fluids get plenty of rest. Tylenol or ibuprofen as needed for pain or fever. Nasal saline flushes 3 to 4 times a day as needed for congestion. Mucinex OTC as needed for congestion. See primary care provider in follow-up in 5-7 days if not improving, sooner if problems, to ED or urgent care if worsening. Mario Savage P.A.-C. LATORY CARE COORDINATOR documented in this encounter Progress Notes Mario Savage P.A.-C. - 12/12/2018 7:30 PM CST Chief complaint: Cold symptoms History of present illness: Lulu Mata is a 28 y.o. female presents with nasal congestion has been ongoing for 5-6 weeks. Shehas had intermittent symptoms over this period of time. She reports facial pressure and congestion. She denies fever. She does have intermittent headache. She is not currently taking any medications for symptoms. She has no history of chronic sinus problems. Review of systems: Patient denies fever, chills, vomiting, diarrhea, rash, shortness of breath, or chest pain. Past Medical History: Diagnosis Date ??? Asthma NOS Current Outpatient Prescriptions: ??? etonogestrel (NEXPLANON) 68 mg subdermal implant, 1 each by implant route continuously., Disp: ,Rfl: ??? ibuprofen (for_ADVIL,MOTRIN) 200 mg capsule, Take 600 mg by mouth every 6 (six) hours as needed for pain., Disp: , Rfl: ??? albuterol (PROVENTIL HFA,VENTOLIN HFA) 90 mcg/actuation inhaler, Inhale 2 puffs every 6 (six) hours as needed for wheezing., Disp: 1 Inhaler, Rfl: 1 Allergies Allergen Reactions ??? No Known Allergies Other (see comments) Objective: BP (!) 136/92 (BP Location: Left arm, Patient Position: Sitting, Cuff Size: Regular) Pulse 86 Temp 36.9 ??C (Temporal) Wt 72 kg SpO2 96% BMI 31.00 kg/m?? Vital signs are noted. Patient is afebrile. O2 sat is 96% on room air. The patient is alert oriented. She is in no acute respiratory distress. She was readily from chair to exam table. HEENT: Ears: Tympanic membranes and external canals are clear bilaterally. Nares: Mild clear rhinitis, no obvious congestion, no odor. Eyes: Pupils are equal round reactive, extraocular movements are intact, no redness or discharge. Throat: Posterior pharynx pink and moist, no erythema or exudate. Uvula protrudes midline. Oral cavity is normal. Neck: Soft and supple, no tonsillar or cervical adenopathy. Full range of motion. Lungs: Clear to auscultation in all gonzales. Cardiovascular: Regular rate and rhythm, no murmurs. Abdomen: No CVAT bilaterally. Dermatologic: No rashes or lesions are seen. Assessment: Viral upper respiratory infection Plan: Push fluids get plenty of rest. Tylenol or ibuprofen as needed for pain or fever. Nasal saline flushes 3 to 4 times a day as needed for congestion. Mucinex OTC as needed for congestion. See primary care provider in follow-up in 5-7 days if not improving, sooner if problems, to ED or urgent care if worsening. Mario Savage P.A.-C. LATORY CARE COORDINATOR documented in this encounter Plan of Treatment Not on filedocumented as of this encounter Visit Diagnoses Diagnosis Infection Upper Respiratory - Primary documented in this encounter Care Teams Transit Mixer Operator Relationship Specialty Start Date End Date Elsewhere, Pcp PCP - General Family Medicine 01/08/18 01/12/21 documented as of this encounter
--- OUTSIDE RECORDS SUMMARY | 2022-05-31 01:01 | XMS_ITS | Encounter Summary ---
:1990 Author Organization [facility] Address [address] [place] [address] Care Team Providers Name Role Phone Elsewhere, Pcp Primary Care Provider Unavailable Reason for Visit Reason Comments Sinus Symptoms 3 wks ago; started with ST, then ears and facial pressure. Pt using NetiPot. Sore Throat strep exposure at work Encounter Details Date Type Department Care Team Description 05/08/2018 Office Visit Express Care in [facility] Arely Ferrell Sinu sitis [place], [place] LEAD FABRICATOR, C.N.P. (Primary Dx) [address] [place] [phone] Social History Tobacco Use Types Packs/Day Years [...] do you attend orthodox or Never 2021 congregation services? Do you [...] at Date Recorded Female 12/02/2021 5:19 PM PEARL CUTTER documented as of this encounter Last Filed Vital Signs Vital Sign Reading Time Taken Comments Blood Pressure 136/80 05/08/2018 6:36 PM CDT Pulse 80 05/08/2018 6:36 PM CDT Temperature 36.7 ??C (98.1 ??F) 05/08/2018 6:36 PM CDT Respiratory Rate - - Oxygen Saturation 98% 05/08/2018 6:36 PM CDT Inhaled Oxygen Concentration - - Weight 73.6 kg (162 lb 4.1 oz) 05/08/2018 6:36 PM CDT Height - - Body Mass Index 31.44 01/15/2017 11:02 PM CDT documented in this encounter Patient Instructions Patient InstructionsArely Ferrell APRN, C.N.P. - 05/08/2018 6:15 PM CDT Warm moisture, fluids, rest and pain relievers as needed. Hope this clears up soon. Thanks for coming in today. Brooke documented in this encounter Progress Notes Arely Ferrell APRN, C.N.P. - 05/08/2018 6:15 PM CDT SUBJECTIVE CHIEF COMPLAINT / REASON FOR VISIT Lulu Mata is a 28 y.o. female who presents for evaluation of Sinus Symptoms (3 wks ago; started with ST, then ears and facial pressure. Pt using NetiPot. ) and Sore Throat (strep exposure at work). HISTORY OF PRESENT ILLNESS Sore Throat Location: Generalized Pain score: 7/10 Onset quality: Gradual Duration: 3 weeks Timing: Constant Progression: Worsening Chronicity: New Relieved by: NSAIDs (Neti pot) Worsened by: Swallowing Ineffective treatments: NSAIDs and hot liquids Associated symptoms: chest pain (slight congestion), cough (not constant-from post nasal drip), ear pain (popping), postnasal drip, sinus congestion and trouble swallowing Associated symptoms: no abdominal pain, no fever and no rhinorrhea (congested nasally) Risk factors: exposure to strep Risk factors: no recent endoscopy The following portions of the patient's history were reviewed and updated as appropriate: allergies,current medications, medical history and social history. Primary care provider none identified. Recently moved to [place]. REVIEW OF SYSTEMS Constitutional: Negative for fever. ENT: Positive for ear pain (popping), postnasal drip, sore throat and sinus congestion. Negative forrhinorrhea (congested nasally). Respiratory: Positive for cough (not constant-from post nasal drip). Cardiovascular: Positive for chest pain, pressure or tightness (slight congestion). Gastrointestinal: Positive for difficulty swallowing. Negative for abdominal (belly) pain or cramping. OBJECTIVE BP 136/80 (BP Location: Right arm, Patient Position: Sitting, Cuff Size: Regular) Pulse 80 Temp 36.7 ??C (Temporal) Wt 73.6 kg SpO2 98% BMI 31.44 kg/m?? PHYSICAL EXAM Constitutional: She is oriented to person, place, and time. No distress. HENT: Head: Normocephalic and atraumatic. Right Ear: Tympanic membrane is erythematous and bulging. Left Ear: Tympanic membrane is bulging (pearly white). Eyes: Pupils are equal, round, and reactive to light. Right conjunctiva is injected. Left conjunctiva is injected. Neck: Normal range of motion. Neck supple. Pulmonary/Chest: Breath sounds normal. Lymphadenopathy: She has cervical adenopathy. Neurological: She is alert and oriented to person, place, and time. Skin: Skin is warm, dry and intact. Psychiatric: She has a normal mood and affect. Nursing note and vitals reviewed. ASSESSMENT / PLAN #1 Sinusitis Acute - amoxicillin-pot clavulanate (AUGMENTIN) 875-125 mg per tablet; Take 1 tablet by mouth 2 (two) times a day for 10 days., Starting 05/08/2018, Until 05/18/2018, Normal Discussed supportive measures, including increasing exposure to warm moisture, frequent showers and sipping on teas and broths. Over the counter pain relievers as needed for comfort and/or fever. To follow up in 5-7 days if symptoms would persist or worsen. May return to Express Care as desires in the future for minor concerns. Opportunity for questions, support and reassurance provided. Given written information. Discharged in stable condition. documented in this encounter Plan of Treatment Not on filedocumented as of this encounter Visit Diagnoses Diagnosis Sinusitis Acute - Primary documented in this encounter Care Teams User Interface Artist Relationship Specialty Start Date End Date Elsewhere, Pcp PCP - General Family Medicine 01/08/18 01/12/21 documented as of this encounter
--- OUTSIDE RECORDS SUMMARY | 2022-05-31 01:01 | XMS_ITS | Encounter Summary ---
:1990 Author Organization [facility] Address [address] [place] [address] Care Team Providers Name Role Phone Elsewhere, Pcp Primary Care Provider Unavailable Encounter Details Date Type Department Care Team Description 01/28/2019 Hospital Encounter Department of Radiology Ben Arce M.D. Edema Leg in [place], [place] [address] [place] [phone] Social History Tobacco Use Types Packs/Day Years [...] do you attend religious or Never 2021 church services? Do you [...] or slept in a correction (including now)? 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 etonogestreL (NEXPLANON) 1 each by implant 0 12/2112/20/2021 68 mg subdermal implant route continuously. rivaroxaban (XARELTO) 15 Take 1 tablet (15 mg 42 tablet 0 0 01/28/2019 03/28/2019 mg tabletIndications: total) by mouth 2 Thrombosis Superficial (two) times a day Vein Lower Extremity Left with meals for 21 days. documented as of this encounter Plan of Treatment Not on filedocumented as of this encounter Procedures Procedure Name Priority Date/Time Associated Comments Diagnosis US LOWER RAD - Routine 01/28/2019 1:10 Edema Leg Results for this EXTREMITY VEINS (most inpatients PM CDT procedur e are in LEFT and all the results outpatients) section. documented in this encounter Results US Lower Extremity Veins Left (01/28/2019 1:10 PM CDT) Anatomical Region Laterality Modality Lower Extremity, Ultrasound RST LOS, Ultrasound ARZ LOS, Lef t Ultrasound Ultrasound FLA LOS Specimen (Source) Anatomical Collection Method Collection Time Re ceived Time Location / / Volume Laterality 01/28/2019 2:20 PM CDT Impressions 01/28/2019 2:21 PM CDT IMPRESSION: 1. Negative for Acute DVT. 2. Lesser saphenous vein deep venous thr ombosis. Narrative 01/28/2019 2:21 PM CDT EXAM: US LOWER EXTREMITY VEINS LEFT Exam performed with color and spectral D oppler analysis. COMPARISON: None FINDINGS: LEFT: ??The common femoral, upper deep f emoral, femoral, and popliteal veins are widely patent, without thrombus. The pos terior tibial, peroneal, soleal and gastrocnemius veins were segmentally vis ualized and are normal where seen. The great saphenous vein is patent and negat macie for thrombus. There is noncompressibility of the lesser sapheno us vein from the knee into the ankle. Procedure Note Timoteo Paredes M.D. - 01/28/2019Fo rmatting of this note might be different from the original. EXAM: US LOWER EXTREMITY VEINS LEFT Exam performed with color and spectral D oppler analysis. COMPARISON: None FINDINGS: LEFT: The common femoral, upper deep fem oral, femoral, and popliteal veins are widely patent, without thrombus. The pos terior tibial, peroneal, soleal and gastrocnemius veins were segmentally vis ualized and are normal where seen. The great saphenous vein is patent and negat macie for thrombus. There is noncompressibility of the lesser sapheno us vein from the knee into the ankle. IMPRESSION: 1. Negative for Acute DVT. 2. Lesser saphenous vein deep venous thr ombosis. Ben TRUONG US PROCEDURES documented in this encounter Visit Diagnoses Diagnosis Edema Leg documented in this encounter Care Teams Sap Basis Consultant Relationship Specialty Start Date End Date Elsewhere, Pcp PCP - General Family Medicine 01/08/18 01/12/21 documented as of this encounter
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
--- OUTSIDE RECORDS SUMMARY | 2022-05-31 01:01 | XMS_ITS | Encounter Summary ---
:1990 Author Organization [facility] Address [address] [place] [address] Care Team Providers Name Role Phone Elsewhere, Pcp Primary Care Provider Unavailable Encounter Details Date Type Department Care Team Description 01/28/2019 Hospital Encounter Department of Radiology, Ben Arias M.D. [place] [address] [address] [place], [place] [facility] [address] [place] [address] [phone] Social History Tobacco Use Types Packs/Day Years [...] or relatives? How often do you attend presybeterian or Never 2021 latter-day services? 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 etonogestreL (NEXPLANON) 1 each by implant 0 12/2112/20/2021 68 mg subdermal implant route continuously. documented as of this encounter Plan of Treatment Not on filedocumented as of this encounter Procedures Procedure Name Priority Date/Time Associated Comments Diagnosis DX KNEE LEFT 3 RAD - Routine 01/28/2019 10:11 Pain Knee Left Result s for this VIEWS (most inpatients AM CDT procedure a re in and all the results outpatients) section. documented in this encounter Results DX Knee Left 3 Views (01/28/2019 10:11 [...] Procedure Note Jayesh Cunningham Jr., M.D. - 2018 EXAM: DX KNEE LEFT 3 VIEWS COMPARISON: [...] ure or effusion. Ben [facility] DIAGNOSTIC IMAGING PROCE DURES documented in this encounter Visit Diagnoses Not on filedocumented in this encounter Care Teams Housecleaner Floor Relationship Specialty Start Date End Date Elsewhere, Pcp PCP - General Family Medicine 01/08/18 3 documented as of this encounter
--- OUTSIDE RECORDS SUMMARY | 2022-05-31 01:01 | XMS_ITS | Encounter Summary ---
:1990 Author Organization [facility] Address [address] [place] [address] Care Team Providers Name Role Phone Elsewhere, Pcp Primary Care Provider Unavailable Reason for Visit Reason Comments Sore Throat pt with 2 1/2 week history o f sinus congestion now presents with sore throat. Throat pain started about 4 days ago, and is getting worse every day. Encounter Details Date Type Department Care Team Description 09/22/2018 Emergency [place] [facility] Marissa Mccormack, Catie lawsonnicole Acute Department D.O. (Primary Dx) [address] [place] [id number] Social History Tobacco Use Types Packs/Day Years [...] do you attend worship or Never 2021 adventist services? Do you [...] or slept in a halfway (including now)? Sex Assigned at Date Recorded Female 12/02/2021 5:19 PM MIX TECHNICIAN documented as of this encounter Last Filed Vital Signs Vital Sign Reading Time Taken Comments Blood Pressure 128/88 09/22/2018 9:00 AM MIX TECHNICIAN Pulse 88 09/22/2018 9:00 AM MIX TECHNICIAN Temperature 37.5 ??C (99.5 ??F) 09/22/2018 9:00 AM MIX TECHNICIAN Respiratory Rate 16 09/22/2018 9:00 AM MIX TECHNICIAN Oxygen Saturation 99% 09/22/2018 9:00 AM MIX TECHNICIAN Inhaled Oxygen Concentration - - Weight 71.9 kg (158 lb 8.2 oz) 09/22/2018 8:10 AM MIX TECHNICIAN Height 157 cm (5' 1.81) 09/22/2018 8:10 AM MIX TECHNICIAN Body Mass Index 29.17 09/22/2018 8:10 AM MIX TECHNICIAN documented in this encounter Discharge Instructions Discharge InstructionsBuMarissa lopez D.O. - 09/22/2018 8:59 AM CST Take the steroids daily, and take ibuprofen and/or tylenol as needed for pain. You should return to the ED for dehydration, if you are more swollen, have difficulty breathing or cannot swallow. TECHNICIAN AttachmentsThe following attachments cannot be sent through Care Everywhere.Sore Throat (Croatian)documented in this encounter Medications at Time of Discharge Medication Sig Dispensed Refills Start Date End Date predniSONE (DELTASONE) 20 Take 2 tablets (40 10 tablet 0 09/27/2018 mg tablet mg total) by mouth daily for 5 days. etonogestreL (NEXPLANON) 1 each by implant 0 12/2112/20/2021 68 mg subdermal implant route continuously. ibuprofen Take 600 mg by mouth 0 11/2018 (for_ADVIL,MOTRIN) 200 mg every 6 (six) hours capsule as needed for pain. documented as of this encounter ED Notes Marissa Mccormack D.O. - 09/22/2018 8:33 AM CST SUBJECTIVE CHIEF COMPLAINT/REASON FOR VISIT Sore Throat (pt with 2 1/2 week history of sinus congestion now presents with sore throat. Throat pain started about 4 days ago, and is getting worse every day. ) HISTORY OF PRESENT ILLNESS 28 y/o female presents with sinus congestion and throat pain x 4 days. Sinus congestion has been for1-2 weeks. Has had relief from congestion with neti pot, but not throat pain. Sore Throat Location: Generalized Quality: Aching Severity: Moderate Onset quality: Gradual Duration: 4 days Timing: Constant Progression: Worsening Chronicity: New Relieved by: Nothing Worsened by: Swallowing Ineffective treatments: neti pot. Associated symptoms: no abdominal pain, no chills, no cough, no ear pain, no eye discharge, no fever, no headaches, no neck stiffness, no rash, no rhinorrhea, no shortness of breath and no trouble swallowing Risk factors: no exposure to strep, no exposure to mono and no sick contacts REVIEW OF SYSTEMS Constitutional: Negative for chills and fever. HENT: Positive for sore throat. Negative for ear pain, rhinorrhea, sinus pressure and trouble swallowing. Eyes: Negative for discharge. Respiratory: Negative for cough and shortness of breath. Gastrointestinal: Negative for abdominal pain, nausea and vomiting. Genitourinary: Negative for dysuria. Musculoskeletal: Negative for neck stiffness. Skin: Negative for rash. Neurological: Negative for headaches. All other systems reviewed and are negative. OBJECTIVE Initial Vitals [09/22/18 0808] Temperature Pulse Rate Heart Rate Resp Rate Blood Pressure SpO2 37.2 ??C 92 -- 16 (!) 132/94 98 % Pain Score 8 PHYSICAL EXAMINATION Constitutional: She appears well-developed and well-nourished. HENT: Head: Normocephalic and atraumatic. Right Ear: Tympanic membrane is not erythematous and not bulging. A middle ear effusion is present. Left Ear: Tympanic membrane is not erythematous and not bulging. A middle ear effusion is present. Nose: Rhinorrhea present. Mouth/Throat: Uvula is midline. Mucous membranes are moist. No trismus in the jaw. Posterior oropharyngeal erythema present. No oropharyngeal exudate, posterior oropharyngeal edema, left peritonsillar abscess or right peritonsillar abscess. Eyes: Conjunctivae are normal. Pupils are equal, round, and reactive to light. Neck: Neck supple. Cardiovascular: Normal rate, regular rhythm and normal heart sounds. Pulmonary/Chest: Effort normal and breath sounds normal. Abdominal: Soft. Musculoskeletal: Normal range of motion. Neurological: She is alert and oriented to person, place, and time. Skin: Skin is warm and dry. Psychiatric: She has a normal mood and affect. Nursing note and vitals reviewed. ASSESSMENT/PLAN Impression and Plan Patient presents to the ED for evaluation of sore throat. Given the patient???s history and examination, my suspicion is that the sore throat is likely due to viral pharyngitis. Although on the differential, Infectious process such as peritonsillar abscess, retropharyngeal space infection, bacterial tracheitis, Lemierre???s syndrome, Jl???s angina are of low likelihood. I don???t appreciate signsof these on exam. Strep testing is negative, and pt will be treated with steroids, fluids, and othergeneral supportive care discussed. Additional verbal discharge instructions given. . Reviewed and summarized previous medical records including: Lab results and Documentation from previous visits. I personally reviewed the lab result(s) and my interpretation is: Normal Final Diagnoses: as of Sep 22 855 Pharyngitis Acute Marissa Mccormack D.O. 09/22/18 0917 TECHNICIAN documented in this encounter Plan of Treatment Not on filedocumented as of this encounter Procedures Procedure Name Priority Date/Time Associated Diagnosis Comme nts RAPID STREP A STAT 09/22/2018 8:37 AM Results for this SCREEN MIX TECHNICIAN procedure are i n the results section. BACTERIAL CULTURE, STAT 09/22/2018 8:37 AM Res ults for this THROAT MIX TECHNICIAN procedure are i n the results section. documented in this encounter Results Bacterial Culture, Throat (09/22/2018 8:37 AM MIX TECHNICIAN) [facility] Method Time Signature Throat No growth of 09/24/2018 [facility] Culture Streptococcus 7:07 AM MIX TECHNICIAN HEALTH pyogenes [facility] LAB Specimen Anatomical Collection Method Collection Time Receive d Time (Source) Location / / Volume Laterality Throat Swab 09/22/2018 8:37 AM 8 3:28 MIX TECHNICIAN PM MIX TECHNICIAN Marissa Mccormack D.O. LAB MICROBIOLOGY - GENERAL O RDERABLES Performing Organization Address City/State/ZIP Code Phon e Number [facility] [address] [place] [address] LAB Rapid Strep A Screen (09/22/2018 8:37 AM MIX TECHNICIAN) P athologist Signature Rapid Strep A Negative Negative 09/22/2018 [facility] Screen 8:52 AM [facility] Specimen Anatomical Collection Method Collection Time Receive d Time (Source) Location / / Volume Laterality Varies (Throat) 09/22/2018 8:37 AM 2017 8:41 MIX TECHNICIAN AM MIX TECHNICIAN Marissa Mccormack D.O. LAB MICROBIOLOGY - GENERAL O RDERABLES Performing Organization Address City/State/ZIP Code Phon e Number [address] [address] [place] [facility] documented in this encounter Visit Diagnoses Diagnosis Pharyngitis Acute - Primary documented in this encounter Care Teams Under Water Assistant Relationship Specialty Start Date End Date Elsewhere, Pcp PCP - General Family Medicine 01/08/18 01/12/21 documented as of this encounter
--- OUTSIDE RECORDS SUMMARY | 2022-05-31 01:01 | XMS_ITS | Encounter Summary ---
:1990 Author Organization [facility] Address [address] [place] [address] Care Team Providers Name Role Phone Elsewhere, Pcp Primary Care Provider Unavailable Reason for Visit Reason Comments Nasal Congestion pt presents concerned for po ssible sinus infection. c/o of facial pain, congestion, ear pain a nd throat pain. symptoms for approx one month. denies fevers. has be en taking mucinex Encounter Details Date Type Department Care Team Description 03/28/2019 Emergency [place] [facility] Valerie Malone, Infec kori Upper Department M.DMaribell Respiratory (Primary [address] Dx) [place] [phone] Social History Tobacco Use Types Packs/Day Years [...] or relatives? How often do you attend roman catholic or Never 2021 evangelical services? 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 - 03/28/2019 8:43 AM CDT Recommend Afrin nasal spray (3 days only). It will really open you up. Ask pharmacy how to use. documented in this encounter Medications at Time of Discharge Medication Sig Dispensed Refills Start Date End Date azithromycin (ZITHROMAX) 500 mg on day 1, 6 tablet 0 03/2804/02/2019 250 mg tablet followed by 250 mg once daily for 4 days. acetaminophen (TYLENOL Take by mouth as 0 08/11/2019 ORAL) needed. albuterol (PROVENTIL Inhale 2 puffs every 1 Inhaler 1 10/3107/29/2019 HFA,VENTOLIN HFA) 90 6 (six) hours as mcg/actuation inhaler needed for wheezing. etonogestreL (NEXPLANON) 1 each by implant 0 12/2112/20/2021 68 mg subdermal implant route continuously. guaiFENesin (MUCINEX) 600 Take 600 mg by mouth 0 07/29/2019 mg 12 hr tablet as needed for cough. rivaroxaban (XARELTO) 20 Take 1 tablet (20 mg 63 tablet 0 0 02/11/2019 07/29/2019 mg tablet total) by mouth daily with dinner. For 9 weeks. documented as of this encounter ED Notes Valerie Malone M.D. - 03/28/2019 8:44 AM CDT SUBJECTIVE CHIEF COMPLAINT/REASON FOR VISIT Nasal Congestion (pt presents concerned for possible sinus infection. c/o of facial pain, congestion, ear pain and throat pain. symptoms for approx one month. denies fevers. has been taking mucinex) HISTORY OF PRESENT ILLNESS 28-year-old female nonsmoker with a previous history of asthma presents for evaluation of upper respiratory symptoms lingering without resolution over the course of an entire month. Not running fevers at this point. Complains of severe sinus pressure as her main symptom. She did have a sore throat butis somewhat better. She is trying to drink plenty of fluids. She does not notice any change in her inhaler use. She coughs a little, but it is nonproductive. No definite ill exposures. Taking only Mucinex. She thinks she has not gotten better at any point during the month. REVIEW OF SYSTEMS Constitutional: Negative for fever. HENT: Positive for congestion, sinus pressure and sore throat. Respiratory: Positive for cough. Negative for shortness of breath. Cardiovascular: Positive for chest pain (Occasional pressure, which she treats with albuterol). OBJECTIVE Initial Vitals [03/28/19 0811] Temperature Pulse Rate Heart Rate Resp Rate Blood Pressure SpO2 36.7 ??C 102 -- 18 (!) 130/98 98 % Pain Score 7 PHYSICAL EXAMINATION Constitutional: No distress. HENT: Head: Normocephalic and atraumatic. Right Ear: Tympanic membrane normal. Left Ear: Tympanic membrane normal. Mouth/Throat: Mucous membranes are moist. Sinuses diffusely tender Eyes: Pupils are equal, round, and reactive to light. Neck: Normal range of motion. Neck supple. Cardiovascular: Regular rhythm and normal heart sounds. No murmur heard. Pulmonary/Chest: Effort normal and breath sounds normal. Musculoskeletal: Normal range of motion. Neurological: She is alert and oriented to person, place, and time. Skin: Skin is warm and dry. Psychiatric: She has a normal mood and affect. Her behavior is normal. Thought content normal. Nursing note and vitals reviewed. ASSESSMENT/PLAN Impression and Plan If I saw the same symptoms on day 3, I would not be inclined to treat, but after a month of unrelenting symptoms, will prescribe Zithromax.. Final Diagnoses: as of Mar 28 844 Infection Upper Respiratory Valerie Malone M.D. 03/28/1948 documented in this encounter Plan of Treatment Not on filedocumented as of this encounter Visit Diagnoses Diagnosis Infection Upper Respiratory - Primary documented in this encounter Care Teams Internet Media Planner Relationship Specialty Start Date End Date Elsewhere, Pcp PCP - General Family Medicine 01/08/18 01/12/21 documented as of this encounter
--- OUTSIDE RECORDS SUMMARY | 2022-05-31 01:01 | XMS_ITS | Encounter Summary ---
:1990 Author Organization [facility] Address [address] [place] [address] Care Team Providers Name Role Phone Elsewhere, Pcp Primary Care Provider Unavailable Reason for Visit Reason Comments Headache frontal and middle of head Earache Cipriano ear pain Sore Throat drainage Sinus Problem over 1 month Encounter Details Date Type Department Care Team Description 01/07/2018 Office Visit [facility] in [facility] Janel DoddYolyn, [place] FATOU Samuel, C.N.P., (Primary Dx) [address] [place] [address] Social History Tobacco Use Types Packs/Day Years [...] or relatives? How often do you attend confucianist or Never 2021 jainism services? Do you belong to any clubs or No 11/20/2021 organizations such as confucianist groups, unions, fraternal or athletic groups, or [...] or slept in a usp (including now)? 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 - 01/07/2018 6:45 PM CDT SUBJECTIVE CHIEF COMPLAINT / REASON FOR VISIT Lulu Mata is a 27 y.o. female who presents for evaluation of Headache (frontal and middle of head); Earache (Cipriano ear pain); Sore Throat (drainage); and Sinus Problem (over 1 month). HISTORY OF PRESENT ILLNESS Patient presents to the clinic today with a over 30 day history of cold symptoms. Her main concerns today are headache, pressure in her ears, pharyngitis, visual tenderness. She feels tired and noticesa fair amount of postnasal drip as well. She feels that over the past week her symptoms have worsened. She has a 5-year-old who goes to preschool. 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 She has a history of sinusitis and feels that this is similar to previous sinus infections. Review of Systems She has had an occasional cough. She denies fever, nausea, or vomiting. The following portions of the patient's history were reviewed and updated as appropriate: allergies,current medications and problem list. Allergies Allergen Reactions ??? No Known Allergies Other (see comments) Current Outpatient Prescriptions: ??? etonogestrel (NEXPLANON) 68 mg subdermal implant, 1 each by implant route continuously., Disp: ,Rfl: ??? ibuprofen (for_ADVIL,MOTRIN) 200 mg capsule, Take 600 mg by mouth every 6 (six) hours as needed for pain., Disp: , Rfl: ??? amoxicillin-pot clavulanate (for_AUGMENTIN) 875-125 mg per tablet, Take 1 tablet by mouth 2 (two) times a day for 7 days., Disp: 14 tablet, Rfl: 0 No past medical history on file. There is no problem list on file for this patient. OBJECTIVE BP 138/76 (BP Location: Right arm, Patient Position: Sitting, Cuff Size: Regular) Pulse 76 Temp 36.8 ??C (Temporal) Wt 72.9 kg BMI 31.14 kg/m?? PHYSICAL EXAM General: Alert and oriented x 3 and in no acute distress. Head: Normocephalic. Ears: Tympanic membranes are clear with bony landmarks and cone of light bilaterally. Nose: Patent. Thick discharge is noted bilaterally. Frontal and maxillary sinuses are tender bilaterally. Right side is more tender than the left. Throat: Mucous membranes moist. No lesions or exudates. Lymph: No cervical lymphadenopathy. Cardiovascular: S1 S2. Regular rate and rhythm. No murmur. Respiratory: Easy respiratory effort. Clear to auscultation. No wheeze or crackles. Skin: Warm and dry. ASSESSMENT / PLAN #1 Sinusitis Acute - amoxicillin-pot clavulanate (for_AUGMENTIN) 875-125 mg per tablet; Take 1 tablet by mouth 2 (two) times a day for 7 days., Starting Sun01/07/2018, Until Sun01/14/2018, Normal Patient was advised that this is likely bacterial as her symptoms have worsened in the past week andher symptoms overall have been ongoing for 30 days. She was started on Augmentin 875/1251 tablet b.i.d. x7 days. She was advised to take this with food. We discussed using a probiotic or yogurt daily while on antibiotics to help mitigate the GI side effects. She may use Tylenol and/or ibuprofen as needed for discomfort. Patient is agreeable to the plan. If she is not improving in 2-3 days, symptoms worsen, or new symptoms develop, patient should follow-up at a higher level of care for further evaluation and treatment. Patient was discharged from the clinic in a stable condition. documented in this encounter Plan of Treatment Not on filedocumented as of this encounter Visit Diagnoses Diagnosis Sinusitis Acute - Primary documented in this encounter Care Teams English Professor Relationship Specialty Start Date End Date Elsewhere, Pcp PCP - General Family Medicine 01/08/18 01/12/21 documented as of this encounter
--- OUTSIDE RECORDS SUMMARY | 2022-05-31 01:01 | XMS_ITS | Encounter Summary ---
:1990 Author Organization [facility] Address [address] [place] [address] Care Team Providers Name Role Phone Elsewhere, Pcp Primary Care Provider Unavailable Reason for Visit Reason Comments Follow-up Outpatient (Routine) - Closed Specialty Diagnoses / Procedures Referred By Contact Refer red To Contact Family Medicine Ben Arce M.D. [facility] [address] [place] [address] Referral ID Status Reason Start Date Expiration Date Visits Requ ested Visits Authorized [id number] Closed 01/28/2019 01/28/2020 1 1 Encounter Details Date Type Department Care Team Description 02/11/2019 Office Visit Department of Ben Metzger M.D. Thrombosis Superficial Medicine in [facility] [address] Vein Lower Extremity [place], [place] Left (Primary Dx) [address] [place] [address] [place], [place] [phone] (Work) [phone] Social History Tobacco Use Types Packs/Day Years [...] do you attend denominational or Never 2021 worship services? 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 - 02/11/2019 10:00 AM CDT SUBJECTIVE CHIEF COMPLAINT / REASON FOR VISIT Lulu Mata is a 28 y.o. female who presents for evaluation of Follow-up. HISTORY OF PRESENT ILLNESS 28 year old female returns for follow up of left lower leg thrombosis of lesser saphenous vein. Her leg pain is better, but still has pain, left knee pain resolved. Tolerating Xarelto with some nausea and dizziness, no fall. The following portions of the patient's history were reviewed and updated as appropriate: allergies,current medications and problem list. OBJECTIVE BP 112/80 Pulse 89 Temp 36.4 ??C Wt 72.9 kg SpO2 98% BMI 31.40 kg/m?? PHYSICAL EXAM General: Alert, oriented, normal speech, pleasant. Lungs: Clear to auscultation. No wheezing or rales. Heart: Normal sinus rhythm. Normal S1, S2. No murmurs. Extremities: Left knee normal, and calf tenderness positive, no obvious swelling, no edema at left ankle. Neurology: No deficits noticed. Psychiatry: Alert and oriented to time, person and place. Normal affect and stable mood. ASSESSMENT / PLAN #1 Thrombosis Superficial Vein Lower Extremity Left Continue Xarelto, and change to 20 mg daily after 3 weeks of 15 mg BID treatment, finish 12 weeks treatment. Activities as tolerated. Comments: Lesser saphaneous vein Other orders - Family Medicine office visit (clinic) - Self - rivaroxaban (XARELTO) 20 mg tablet; Take 1 tablet (20 mg total) by mouth daily with dinner. For 9 weeks., Starting Sun02/11/2019, Normal documented in this encounter Plan of Treatment Not on filedocumented as of this encounter Visit Diagnoses Diagnosis Thrombosis Superficial Vein Lower Extrem ity Left - Primary documented in this encounter Care Teams Retirement Consultant Relationship Specialty Start Date End Date Elsewhere, Pcp PCP - General Family Medicine 01/08/18 01/12/21 documented as of this encounter
--- OUTSIDE RECORDS SUMMARY | 2022-05-31 01:01 | XMS_ITS | Encounter Summary ---
:1990 Author Organization [facility] Address [address] [place] [address] Care Team Providers Name Role Phone Unavailable Primary Care Provider Unavailable Encounter Details Date Type Department Care Team Description 01/15/2017 Hospital Encounter HX [facility] Felix Guillen M.D. [address] [place], [place] [address] (Wo rk) Social History Tobacco Use Types [...] do you attend buddhist or Never 2021 gnosticism services? 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 - 01/15/2017 11:20 PM CDT ED Discharge Instructions [facility] [address] [place] [address] Name: DILLAN MATA Date of : 1990 12:00 AM Visit Date: 01/15/2017 7:46 PM [facility] Number: [id number] Address: [address] [place] [id number] Primary Care Provider: PCP, BHARATHI IMPORTANT: [facility] in [place] would like to thank you for allowing us to assistyou with your healthcare needs. The following includes patient education materials and information regarding your injury/illness. Diagnosis: Contusion Hand Initial R Follow-Up Instructions: With: Address: When: Follow up with primary care provider Within As Needed Comments: Call for follow up appointment. If symptoms worsen. Your Upcoming Appointments: Date Time Location Provider No Appointments found Patient Education Materials: Contusion: Hand You have a CONTUSION of your hand. This causes local pain, swelling and sometimes bruising. There are no broken bones. This injury takes from a few days to a few weeks to heal. Home Care: 1) Keep your arm elevated to reduce pain and swelling. This is very important during the first 48 hours. 2) Apply an ice pack (ice cubes in a plastic bag, wrapped in a towel) over the injured area for 20 minutes every 1-2 hours the first day. You should continue with ice packs 3-4 times a day for the nexttwo days. Continue the use of ice packs for relief of pain and swelling as needed. 3) You may use acetaminophen (Tylenol) or ibuprofen (Motrin, Advil) to control pain, unless another pain medicine was prescribed. [ NOTE : If you have chronic liver or kidney disease or ever had a stomach ulcer or GI bleeding, talk with your doctor before using these medicines.] Follow Up with your doctor or this facility if you are not starting to improve within the next THREE days. [NOTE: If X-rays were taken, they will be reviewed by a radiologist. You will be notified of any newfindings that may affect your care.] Get Prompt Medical Attention if any of the following occur: -- Pain or swelling increases -- Redness, warmth or drainage -- Hand or fingers becomes cold, blue, numb or tingly ?? [id number] [facility], [address] [place] [address], [place] [address]. All rights reserved. This information is not intended as a substitute for professional medical care. Always follow your healthcare professional's instructions. Consider Using Patient Online Services Patient Online Services is a secure online and Mobile application that lets you: ?? View lab and test results ?? View portions of your medical record including clinical notes, immunizations and discharge summaries ?? Request an appointment or medication refill ?? Review your appointment schedule ?? Send secure messages to your care team Its easy to create an account if you dont have one. Go to [email or web address] and click on Create Your Account. Then, follow the directions to complete the online form. Youll be asked for your [facility] number which you can find at the top of this document. ED Tests and Procedures: Order Status XR Hand Right 3 or more views Ordered Discharge Prescriptions & Home Medications: Medication/Strength Dose Route Frequency Indications/Special Instructions/Comments/Notes ibuprofen (ibuprofen 200 mg oral tablet) 400 mg Oral four times a day as needed for Pain / Fever Take with food Misc Prescription (Misc Prescription) implanted control Attention: [...] arrange a ride home with a responsible libertarian. LARISSA Carrizales KALLIE , or responsible libertarian have received this information and my questions have been answered. I have discussed any challenges I see with this plan with the nurse or physician. Patient Signature or Responsible Libertarian/Relationship Date Time Provider Signature Date Time IMPORTANT: [...] arrange a ride home with a responsible libertarian. LARISSA Carrizales KALLIE or responsible libertarian have received this information and my questions have been answered. I have discussed any challenges I see with this plan with the nurse or physician. Patient Signature or Responsible Libertarian/Relationship Date Time Provider Signature Date Time Source: [employer] Document Id: [id number] Angelica Sandra R.N. - 01/15/2017 11:20 PM CDT ED Depart Summary [facility] Emergency Department Clinical Discharge Summary PERSON INFORMATION Name DILLAN MATA Age 26 Years 1990 12:00 AM Sex Female Language Czech PCP PCP, ELSEWHERE Marital Status Unknown Visit Id Visit Reason Hand pain-swelling; SWOLLEN RIGHT HAND Specialty Enc Type Emergency Med Service Emergency Medicine Referred by Track Group MAQN ED Discharge 01/15/2017 11:10 PM Tracking Id [id number] Checkout 01/15/2017 11:10 PM Checkin 01/15/2017 7:46 PM Acuity 4 -Less Urgent Dispo Type * Discharged to Home or Self Care Arrival 01/15/2017 7:46 PM Reg Status LOS 000 03:24 Address: [address] [place] [id number] Comment: PROVIDER INFORMATION Provider Role Provider Contact Time ANGELICA SANDRA ED Nurse 01/15/17 19:57 NIKOS MENDEZ MD ED Provider 01/15/17 20:09 DIAGNOSIS Contusion Hand Initial R Comment: PATIENT EDUCATION INFORMATION Instructions: CONTUSION, Hand Follow up: With: Address: When: Follow up with primary care provider Within As Needed Comments: Call for follow up appointment. If symptoms worsen. Source: [facility] POWERCHART Document Id: [id number] documented in this encounter Medications at Time of Discharge Medication Sig Dispensed Refills Start Date End Date etonogestreL (NEXPLANON) 1 each by implant 0 12/2112/20/2021 68 mg subdermal implant route continuously. documented as of this encounter ED Notes Angelica Sandra R.N. - 01/15/2017 11:05 PM CDT ED Disposition Summary ED Disposition Summary Entered On: 01/15/2017 23:19 CDT Performed On: 01/15/2017 23:05 CDT by ANGELICA SANDRA ED Disposition Summary Present in Room During Exam/Procedure : Alone Mode of Discharge : Ambulatory Transportation : Private vehicle Discharge From ED With : Home Med List Printed Discharge Instructions Given to Patient : Yes Patient Status at Discharge from ED : Improved 30 Minutes Critical Care : No ANGELICA SANDRA - 01/15/2017 23:19 CDT Source: [employer] Document Id: [id number] CDT!9 Angelica Sandra R.N. - 01/15/2017 11:05 PM CDT ED Education ED Education Entered On: 01/15/2017 23:20 CDT Performed On: 01/15/2017 23:05 CDT by ANGELICA SANDRA Education ED Education Grid Topics : Discharge instructions/Medication list Individuals Taught : Patient Barriers to Learning : None evident Teaching Method : Explanation, Printed materials Teaching Evaluation : Able to teach back, Verbalizes understanding ANGELICA SANDRA - 01/15/2017 23:19 CDT Source: [employer] Document Id: [id number] CDT!9 Angelica Sandra R.N. - 01/15/2017 11:02 PM CDT ED Nurse Reassess ED Nurse Reassess Entered On: 01/15/2017 23:02 CDT Performed On: 01/15/2017 23:02 CDT by ANGELICA SANDRA Pain Assessment Pain Symptoms : Yes ANGELICA SANDRA - 01/15/2017 23:02 CDT Comfort Measures Patient Response : Patient is waiting for discharge instructions. Pt's ride is here. ANGELICA SANDRA - 01/15/2017 23:02 CDT Griffith Griffith Agitation Sedation Scale (RASS) : Alert and calm RASS Score : 0 ANGELICA SANDRA - 01/15/2017 23:02 CDT Resp Reassess Respiratory Patient Stated Symptoms : None Distress : None Airway : Patent Respiratory Pattern : Regular Respirations : Unlabored ANGELICA SANDRA 01/15/2017 23:02 CDT CV Reassess CV Patient Stated Symptoms : None Skin Color : Normal for ethnicity Skin Description : Normal Skin Temperature : Warm ANGELICA SANDRA - 01/15/2017 23:02 CDT Neuro Reassess Last Well Time Known : Not applicable Orientation : Oriented x 3 Characteristics of Speech : Clear Level of Consciousness : Alert Gait : Steady ANGELICA SANDRA 01/15/2017 23:02 CDT Sophie Coma Eye Opening Response Sophie : Spontaneously Best Verbal Response Sophie : Oriented Best Motor Response Sophie : Obeys simple commands [place] Coma Score : 15 ANGELICA SANDRA 01/15/2017 23:02 CDT GI Reassess GI Patient Stated Symptoms : None ANGELICA SANDRA - 01/15/2017 23:02 CDT /OB Reassess Patient Stated Symptoms : None ANGELICA SANDRA - 01/15/2017 23:02 CDT Source: [employer] Document Id: [id number] CDT!34 Kim Bartholomew R.N. - 01/15/2017 10:00 PM CDT ED Nurse Reassess ED Nurse Reassess Entered On: 01/15/2017 22:00 CDT Performed On: 01/15/2017 22:00 CDT by KIM BARTHOLOMEW RN Pain Assessment Pain Symptoms : Yes KIM BARTHOLOMEW RN - 01/15/2017 22:00 CDT Pain Scale Pain Scale Verbal 0-10 : Open KIM BARTHOLOMEW Brenda RN - 01/15/2017 22:00 CDT Pain Pain Assessment Grid Pain 1 Location : Hand Laterality : Right Intensity : 8 KIM BARTHOLOMEW Brenda RN - 01/15/2017 22:00 CDT Comfort Measures Comfort Measures Grid Comfortable Environment : Yes JAYKIM AMBROSIO RN - 01/15/2017 22:00 CDT Patient Response : Pt resting in bed with ice pack on hand. States pain is the same. Awaiting xray. KIM BARTHOLOMEW Brenda RN - 01/15/2017 22:00 CDT Source: [employer] Document Id: [id number] CDT!15 Nikos Mendez M.D. - 01/15/2017 9:52 PM CDT Hand pain-swelling Patient: DILLAN MATA Age: 26 years Sex: Female : 1990 Author: NIKOS MENDEZ MD Attachments: None Associated Diagnosis: Contusion Hand Initial R Basic Information Time seen: Date & time 01/15/2017 21:53:00. History source: Patient. Arrival mode: Private vehicle, walking. History limitation: None. Additional information: Chief Complaint from Nursing Triage Note : Chief Complaint Description 01/15/2017 19:51 CDT Chief Complaint Description Pt presents today with right hand pain and swelling. Pt reports that she woke up with pain and swelling this morning. Pt does not remeber any injury. Pthas been taking ibuprofen throughout the day. Pt intermittently used ice to the hand. . History of Present Illness The patient presents with right, hand pain, hand swelling. The onset was unknown and The patient awakened with some discomfort in the dorsum of her right hand. She recalls no specific injury.. The course/duration of symptoms is constant. Type of injury: unknown. Location: Right posterior hand. The character of symptoms is swelling, tingling and achy. The degree of pain is minimal. The degree of swelling is moderate. The exacerbating factor is movement. The relieving factor is none. Risk factors consist of none. The patient's dominant hand is the right hand. Prior episodes: none. Therapy today: none. Associated symptoms: tingling. Review of Systems Constitutional symptoms: Negative except as documented in HPI. Skin symptoms: Negative except as documented in HPI. Musculoskeletal symptoms: Negative except as documented in HPI. Hematologic/Lymphatic symptoms: Bleeding tendency negative or bruising tendency negative. Allergy/immunologic symptoms: Negative except as documented in HPI. Additional review of systems information: All systems reviewed as documented in chart. Health Status Allergies: Allergic Reactions (Selected) NKA. Past Medical/ Family/ Social History Medical history: No active or resolved past medical history items have been selected or recorded.. Surgical history: No active procedure history items have been selected or recorded.. Family history: No family history items have been selected or recorded.. Social history: Alcohol use: Denies, Tobacco use: Denies, Occupation: Employed, Family/social situation: Unmarried. Physical Examination Vital Signs: Time: 01/15/2017 21:30:00, Vital Signs 01/15/2017 20:56 CDT Temperature Core 37.0 DegC Peripheral Pulse Rate 61 /min Respiratory Rate 16 /min SpO2 100 % Systolic Blood Pressure 123 mmHg Diastolic Blood Pressure 85 mmHg BP Location Left upper 01/15/2017 19:51 CDT Temperature Core 36.7 DegC Peripheral Pulse Rate 95 /min Respiratory Rate 16 /min SpO2 100 % Systolic Blood Pressure 137 mmHg Diastolic Blood Pressure 94 mmHg >HHI Mean Arterial Pressure 108 mmHg BP Location Left upper , Measurements 01/15/2017 20:56 CDT Height 153 cm 01/15/2017 19:51 CDT Height 153 cm Height Source Stated Dosing Weight 73.00 kg Actual Weight 73.0 kg Weight Source Standing scale Body Mass Index 31.18 kg/m2 , SpO2 01/15/2017 20:56 CDT SpO2 100 % 01/15/2017 19:51 CDT SpO2 100 % . General: Alert and no acute distress. Skin: Warm, dry, intact and There is ecchymosis and edema on the dorsum of her right hand. She has some increased discomfort when she clenches her right hand into a fist.. Musculoskeletal: Normal ROM. normal strength. Hand right, dorsal, tenderness, swelling, ecchymosis and range of motion: normal. Fingers/toes bilateral, aligned and range of motion: normal. Neurological: No focal neurological deficit observed. Psychiatric: Cooperative. Medical Decision Making OrdersLaunch Orders Radiology: XR Hand Right 3 or more views (Order Processing): 01/15/2017 21:53 CDT, dorsal hand injury unknown mechanism, Stat, Patient Bed, Once, 01/15/2017 21:53 CDT, [facility] Urology. Radiology results:Emergency physician interpretation: Creator: Nikos Mendez Date: Jan 15, 2017 23:04:53 Subject: Preliminary ER Physician Findings (preliminary only - not final):Three-view x-ray of the right hand: Negative for fracture or dislocation. Brant Cortes Impression and Plan Diagnosis Contusion Hand Initial R (Discharge, Emergency medicine, Medical) Plan Condition: Stable. Disposition: Discharged: Time 01/15/2017 23:05:00, to home. Prescriptions: Prescription [facility]: ibuprofen 200 mg oral tablet (Prescribe): 400 mg, 2 tab(s), PO, 4xDay, for 3 day(s), Take with food,PRN: Pain / Fever, 24 tab(s), 0 Refill(s). Patient was given the following educational materials: CONTUSION, Hand. Follow up with: ; Follow up with primary care provider Within As Needed Call for follow up appointment. If symptoms worsen.. Counseled: Patient, Regarding diagnosis, Regarding diagnostic results, Regarding treatment plan, Regarding prescription, Patient indicated understanding of instructions. Orders: Launch Orders Patient Care: Discharge ED Patient (Order Processing): 01/15/2017 23:07 CDT, Once. Electronically Signed By: NIKOS MENDEZ MD On: 01/18/2017 04:19 PM Modified by and Electronically Signed by: NIKOS MENDEZ MD On: 01/15/2017 11:07 PM Source: [facility] POWERCHART Document Id: [id number] Angelica Sandra R.N. - 01/15/2017 8:55 PM CDT ED Nurse Reassess Document Has Been Updated ED Nurse Reassess Entered On: 01/15/2017 20:56 CDT Performed On: 01/15/2017 20:55 CDT by ANGELICA SANDRA Pain Assessment Pain Symptoms : Yes ANGELICA SANDRA 01/15/2017 20:55 CDT Pain Scale Pain Scale Verbal 0-10 : Open ANGELICA SANDRA 01/15/2017 20:55 CDT Pain Pain Assessment Grid Pain 1 Location : Hand Laterality : Right Intensity : 8 ANGELICA SANDRA 01/15/2017 20:55 CDT Comfort Measures Patient Response : Pt is watching show on her cell phone. Hand is elevated with a pillow. Pt reportsthat she is able to move her 5th digit on the right hand which is an improvement. ANGELICA SANDRA 01/15/2017 20:57 CDT Resp Reassess Respiratory Patient Stated Symptoms : None Distress : None Airway : Patent Respiratory Pattern : Regular Respirations : Unlabored ANGELICA SANDRA 01/15/2017 20:55 CDT CV Reassess CV Patient Stated Symptoms : None Skin Color : Normal for ethnicity Skin Description : Normal Skin Temperature : Warm ANGELICA SANDRA 01/15/2017 20:55 CDT Neuro Reassess Last Well Time Known : Not applicable Orientation : Oriented x 3 Characteristics of Speech : Clear Level of Consciousness : Alert Gait : Steady ANGELICA SANDRA 01/15/2017 20:55 CDT Sophie Coma Eye Opening Response Sophie : Spontaneously Best Verbal Response Sophie : Oriented Best Motor Response [place] : Obeys simple commands Sophie Coma Score : 15 ANGELICA SANDRA 01/15/2017 20:55 CDT GI Reassess GI Patient Stated Symptoms : None ANGELICA SANDRA 01/15/2017 20:55 CDT Source: [facility] POWERCHART Document Id: [id number] CDT!3 Angelica Sandra R.N. - 01/15/2017 7:51 PM CDT ED Primary Assessment Document Has Been Updated ED Primary Assessment Entered On: 01/15/2017 19:57 CDT Performed On: 01/15/2017 19:51 CDT by ANGELICA SANDRA Reason For Visit (As Of: 01/15/2017 19:57:06 CDT) Diagnoses(Active) Hand pain-swelling Date: 01/15/2017 ; Diagnosis Type: Reason For Visit ; Confirmation: Complaint of ; Clinical Dx: Hand pain-swelling ; Classification: Medical ; Clinical Service: Emergency medicine ; Code: PNED ; Probability: 0 ; Diagnosis Code: [id number] Triage Chief Complaint Description : Pt presents today with right hand pain and swelling. Pt reports that she woke up with pain and swelling this morning. Pt does not remeber any injury. Pt has been taking ibuprofen throughout the day. Pt intermittently used ice to the hand. Information Given By : Patient Present in Room During Exam/Procedure : Alone Mode of Arrival ED : Private vehicle, Ambulatory Track : Medical Languages : Czech Vital Signs Assessed : Yes GCS Assessed : Yes Treatments Prior to Arrival : Ibuprofen Triage Treatments : Ice to affected area Are you ? : No Is Patient Female and 13-50 no hysterectomy : Yes Status : Patient denies ANGELICA SANDRA - 01/15/2017 19:51 CDT Vital Signs Temperature Core : 36.7 DegC(Converted to: 98.1 DegF) Peripheral Pulse Rate : 95 /min Respiratory Rate : 16 /min Systolic Blood Pressure : 137 mmHg Diastolic Blood Pressure : 94 mmHg (>HHI) NIBP Mean : 108 mmHg BP Location : Left upper extremity SpO2 : 100 % Oxygen Saturation Monitoring Frequency : Intermittent Oxygen Therapy : Room air Height : 153 cm(Converted to: 5 ft 0 inch(es)) Actual Weight : 73.0 kg Actual Weight Conversion to Pounds : 160.6 lb Weight Source : Standing scale Height Source : Stated Body Mass Index : 31.18 kg/m2 ANGELICA SANDRA - 01/15/2017 19:51 CDT [place] Coma Eye Opening Response [place] : Spontaneously Best Verbal Response [place] : Oriented Best Motor Response [place] : Obeys simple commands Sophie Coma Score : 15 ANGELICA SANDAR - 01/15/2017 19:51 CDT Pain Assessment Pain Symptoms : Yes ANGELICA SANDRA - 01/15/2017 19:51 CDT Pain Scale Pain Scale Verbal 0-10 : Open ANGELICA SANDRA 01/15/2017 19:51 CDT Pain Pain Assessment Grid Pain 1 Location : Hand Laterality : Right Intensity : 8 Time Pattern : Acute Onset : Sudden Quality : Sharp Pain Radiation : No Aggravating Factors : Movement, Palpation Alleviating Factors : Cold therapy, Medication ANGELICA SANDRA 01/15/2017 19:51 CDT ED Physician Notification Time ED Physician Notification Time : 01/15/2017 19:52 CDT ANGELICA SANDRA 01/15/2017 19:51 CDT ALONZO ALONZO Level 1 : No ALONZO Level 2 : No ALONZO Level 3 : One ANGELICA SANDRA 01/15/2017 19:51 CDT DCP GENERIC CODE Tracking Acuity : 4 -Less Urgent Tracking Group : MAQN ED ANGELICA SANDRA 01/15/2017 19:51 CDT Allergy (As Of: 01/15/2017 19:57:06 CDT) Allergies (Active) NKA Estimated Onset Date: Unspecified ; Created By: ANGELICA SANDRA; Reaction Status: Active ; Category: Drug ; Substance: NKA ; Type: Allergy ; Updated By: ANGELICA SANDRA; Reviewed Date: 01/15/2017 19:52 CDT ID Screen Drug Resistant Organism : No Travel Within Last 21 Days : No Contact with someone with Ebola : No ANGELICA SANDRA 01/15/2017 19:51 CDT TB Symptoms Grid Bloody Sputum : No Fatigue : No Fever : No Loss of Appetite : No Night Sweats : No Persistent Cough Greater Than 3 Weeks : No Weight Loss : No ANGELICA SANDRA 01/15/2017 19:51 CDT Immunizations Immunizations Current : No Influenza : None ANGELICA SANDRA 01/15/2017 19:51 CDT Respiratory Airway : Patent Respirations : Unlabored Respiratory Pattern : Regular Oxygen Therapy : Room air ANGELICA SANDRA 01/15/2017 19:51 CDT Cardiovascular Heart Rhythm : Regular Skin Color : Normal for ethnicity Skin Description : Normal Skin Temperature : Warm ANGELICA SANDRA 01/15/2017 19:51 CDT Neurological Last Well Time Known : Not applicable Level of Consciousness : Alert Orientation : Oriented x 3 Characteristics of Speech : Clear Gait : Steady ANGELICA SANDRA 01/15/2017 19:51 CDT ED Psychosocial Affect/Behavior : Calm, Cooperative, Appropriate Domestic Abuse Concerns : None Behavioral Health Screen/Safety Assmt : No ANGELICA SANDRA 01/15/2017 19:51 CDT Gastrointestinal Nutrition ED : Adequate ANGELICA SANDRA 01/15/2017 19:51 CDT /OB Assessment Patient Stated Symptoms : None ANGELICA SANDRA 01/15/2017 19:51 CDT Integumentary Integ Note : slight swelling noted to top of right hand. Pt reports the swelling was 3 times worse this morning. ANGELICA SANDRA 01/15/2017 19:51 CDT Musculoskeletal Fall Prevention Education Provided : NA ANGELICA SANDRA 01/15/2017 19:51 CDT Social Habits Smoking Status : Never smoker Tobacco 2A : No Tobacco Use/Currently Using : No Tobacco Use/Last 30 Days : No Tobacco Use/Last 12 months : No ANGELICA SANDRA 01/15/2017 19:51 CDT Alcohol Use Grid Alcohol Use : No ANGELICA SANDRA 01/15/2017 19:51 CDT Recreational Drug Use Grid Drug Use : None ANGELICA SANDRA 01/15/2017 19:51 CDT Source: [employer] Document Id: [id number] CDT!117 documented in this encounter Miscellaneous Notes Miscellaneous - Conversion, Historical Provider Ser - 01/15/2017 11:10 PM CDT Coding Summary-Paper Based CODING DATE: 01/22/2017 FINAL [facility] STATUS: * Discharged to Home or Self Care PAYOR: Medicaid ADMIT DX: M79.641 Pain in right hand REASON FOR VISIT DX: M79.641 Pain in right hand FINAL DX: PRINCIPAL: S60.221A Contusion of right hand, initial encounter SECONDARY: X58.XXXA Exposure to other specified factors, initial encounter Y92.[address] the place of occurrence of the external cause PROCEDURES DOCTOR NAME DATE NOTE: The code number assigned matches the documented diagnosis and / or procedure in the patient's chart. However, the narrative phrase printed from the coding software may appear abbreviated, or result in slightly different terminology. Coded By: SHARITA DUONG Date Saved: 01/22/2017 10:08 am Source: [employer] Document Id: [id number] Miscellaneous - Angelica Sandra RMaribellN. - 01/15/2017 11:05 PM CDT Valuables/Belongings Valuables/Belongings Entered On: 01/15/2017 23:20 CDT Performed On: 01/15/2017 23:05 CDT by ANGELICA SANDRA Valuables/Belongings Belongings Sent Home With : all belongings sent home with patient ANGELICA SANDRA - 01/15/2017 23:20 CDT Source: [employer] Document Id: [id number] CDT!3 documented in this encounter Plan of Treatment Not on filedocumented as of this encounter Procedures Procedure Name Priority Date/Time Associated Diagnosis Comme nts DX HAND RIGHT 3+ Routine 01/15/2017 10:05 PM Resu lts for this VIEWS CDT procedure are i n the results section. documented in this encounter Results DX Hand Right 3+ Views (01/15/2017 10:05 PM CDT) Anatomical Region Laterality Modality Upper Extremity, Hand Right Radiographic Imagi ng Specimen (Source) Anatomical Collection Method Collection Time Re ceived Time Location / / Volume Laterality 01/15/2017 10:05 PM CDT Addenda Addendum by Provider, Minoo Stewart o mon[place] 01/15/2017 10:05 PM CDT RAD^^^MA XR Hand Right 3 or more views 01/15/2017 22:05:25 Narrative 01/16/2017 7:16 AM CDT COMPARISON: None HISTORY: 26 year old female with right d orsal hand injury, unknown mechanism.. Findings: There is no acute right hand o sseous abnormality. Bone mineralization is within normal limits. The visualized joint spaces are preserved. Impression: No acute right hand osseous abnormality. Agree with ER report. Procedure Note Erick Morales M.D. / Provider, Robyn polanco M.D. - 04/09/2017 COMPARISON: None HISTORY: 26 year old female with right d orsal hand injury, unknown mechanism.. Findings: There is no acute right hand o sseous abnormality. Bone mineralization is within normal limits. The visualized joint spaces are preserved. Impression: No acute right hand osseous abnormality. Agree with ER report. Nikos Flores R.T.(R)(CT), R.T.(R) IMG DIAGNOSTIC [facility] PROCEDURES documented in this encounter Visit Diagnoses Not on filedocumented in this encounter
--- OUTSIDE RECORDS SUMMARY | 2022-05-31 01:01 | XMS_ITS | Encounter Summary ---
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 Medications - up to 3 most recent administrations Medication Order MAR Action Action Date Dose Rate Site acetaminophen tablet 650 mg Given 07/29/2019 7:05 PM CDT 650 mg (TYLENOL) 650 mg, oral, Once, On Sun07/29/19 at 1829, For 1 dose fentaNYL injection 50 mcg (SUBLIMAZE) Given 07/29/2019 5:57 PM CDT 50 mcg Left Hand 50 mcg, intravenous, Once, On Sun07/29/19 at 1755, For 1 dose iohexol 350 mg iodine/mL solution 100 mL Given 07/29/2019 5:20 P M CDT 100 mL (OMNIPAQUE) 100 mL, intravenous, Once in imaging, contrast, Starting on Sun07/29/19 at 1739, For 1 dose ketorolac injection 15 mg (TORADOL) Given 07/29/2019 7:05 PM CDT 15 mg 15 mg, intravenous, Once, On Sun07/29/19 at 1829, For 1 dose, Adult IV push rate: Over 15 seconds. Peds IV push rate: Over 1 minute. 60 mg dose only for IM, not recommended for IV. NaCl 0.9 % bolus 1,000 mL New Bag 07/29/2019 5:04 PM CDT 1,000 mL 1000 mL/hr Left Hand 1,000 mL, intravenous, at 1,000 mL/hr, Administer over 1 Hours, Once, On Sun07/29/19 at 1656, For 1 dose NaCl 0.9 % bolus 100 mL Bolus from Bag 07/29/2019 5:20 PM CDT 100 mL 100 mL, intravenous, Once, On Sun07/29/19 at 1739, For 1 dose sodium chloride 0.9 % injection 10 mL Given 07/29/2019 5:20 PM CDT 10 mL 10 mL, intravenous, As needed, line care, Starting on Sun07/29/19 at 1738 sodium chloride 0.9 % injection 2-10 mL 2-10 mL, intravenous, As needed, line care, Starting o n Sun07/29/19 at 1651 documented in this encounter Active and Recently Administered Medications Times are shown in CDT. Scheduled Medication Order 07/27/2019 07/28/2019 07/29/2019 acetaminophen tablet 650 mg (TYLENOL) (COMPLETED) 1905 (Given - Provider: Rylie Lin R.N.) 650 mg, oral, Once, On Sun07/29/19 at 1829, For 1 dose fentaNYL injection 50 mcg (SUBLIMAZE) (COMPLETED) 1757 (Given - Provider: Rylie Lin R.N.) 50 mcg, intravenous, Once, On Sun07/29/19 at 1755, For 1 dose ketorolac injection 15 mg (TORADOL) (COMPLETED) 1905 (Given - Provider: Rylie Lin R.N.) 15 mg, intravenous, Once, On Sun07/29/19 at 1829, For 1 dose, Adult IV push rate: Over 15 seconds. Peds IV push rate: Over 1 minute. 60 mg dose only for IM, not recommended for IV. NaCl 0.9 % bolus 1,000 mL (COMPLETED) 1704 (New Bag - Provider: Rylie Lin R.N.)1809 (Stopped - Provider: Rylie Lin R.N.) 1,000 mL, intravenous, at 1,000 mL/hr, A dminister over 1 Hours, Once, On Sun07/29/19 at 1656, For 1 dose NaCl 0.9 % bolus 100 mL (COMPLETED) 1720 (Bolus from Bag - Provider: Gurdeep Persaud(R)(CT)) 100 mL, intravenous, Once, On Sun07/29/19 at 1739, For 1 dose PRN Medication Order 07/27/2019 07/28/2019 07/29/2019 iohexol 350 mg iodine/mL solution 100 mL (OMNIPAQUE) (COMPLETED) 1720 (Given - Provider: Gurdeep Persaud(Nicholas)(CT) - Comment: [id number]) 100 mL, intravenous, Once in imaging, co ntrast, Starting on Sun07/29/19 at 1739, For 1 dose sodium chloride 0.9 % injection 10 mL 1720 (Given - Provider: Gurdeep Persaud(Nicholas)(CT)) 10 mL, intravenous, As needed, line care, Starting on Sun 9 at 1738 sodium chloride 0.9 % injection 2-10 mL(Linked Group 1) 2-10 mL, intravenous, As needed, line care, Starting on 07/29 at 1651 Linked Groups Order Group 1: Place peripheral IV: No upper extremity site restrictions (CANCELED) Upper extremity site restriction: No upp er extremity site restrictions
Quantity of PIVs requested: One
STAT, Once, Sun07/29/19 at 1655, For 1 occurrence And sodium chloride 0.9 % injection 2-10 mLJump to med 2-10 mL, intravenous, As needed, line ca re, Starting on Sun07/29/19 at 1651 documented in this encounter Care Teams Dryer Feeder Relationship Specialty Start Date End Date Elsewhere, Pcp PCP - General Family Medicine 01/08/18 01/12/21 documented as of this encounter
== END 2022-05-24 09:55 | disposition home or self-care (01) ==
PROVIDERS: Visit Provider Obstetrics & Gynecology
DX: R73.09 Other abnormal glucose (principal)
CPT/HCPCS: 82951; 82952

== ENCOUNTER 2022-05-31 19:34 | Outpatient (CLI) | payer MEDICAID, SELFPAY ==
--- OUTSIDE RECORDS SUMMARY | 2022-05-31 19:36 | XMS_ITS | Clinical Summary ---
:1990 Author Organization [facility] Address [address] [place] [address] Care Team Providers Name Role Phone Ben Arce M.D. Primary Care Provider Source Comments Patient records contain information from all sites at [facility]. For routine questions regarding patient records, call [phone] during business hours, M-F 8:00 AM - 5:00 PM Central Time. Record requests for emergency care only can be directed to [phone] at any time.[facility] Allergies Active Allergy Reactions Severity Noted Date Comments Sumner Pollen Itching, Wheezing 04/17/2022 Medications Medication Sig [...] COVID complete but needs b ooster/Flu declines 911 Emergency Dispatcher: Pap NIL w/ neg HPV 11/2021 Aneuploidy [...] told me she is transferr ing to [place] because it is closer. History Of Falling [...] Rylie Mcdowell 23 Weeks Gestation Gynecology Minoo ([facility]) (Primary Dx) 04/17/2022 Hospital Encounter Labor and Delivery Jeremias, Giya, 23 Weeks Gestation M.D. ([facility]) 03/31/2022 Hospital Encounter Laboratory Medicine Cheikh Gautam High Risk Minoo Garcia ([facility]) 03/27/2022 Routine Obstetrics and Cheikh Gautam High Ri sk ([facility]) (Primary Dx); Gynecology Minoo Garcia Encounter For S upervision Of Normal Unspecified Trimester ([facility]) 03/27/2022 Ancillary Procedure Obstetrics and Cheikh Gautamo unter For Gynecology Minoo Garcia Supervision Of Other Normal Unspecified Trimester ([facility]) 03/01/2022 Routine Obstetrics and Terrence Swenson Examination Test With Positive Result ([facility]) (Primary Dx); Gynecology Minoo Gutierrez Encounter For S upervision Of Normal Unspecified Trimester ([facility]) 03/01/2022 Clinical Communication Family Medicine Ben [...] do you attend islam or Never 2021 nondenominational services? Do you [...] to pay for the very basics like Nva lala hard 11/20/2021 food, housing, medical care, [...] at Date Recorded Female 12/02/2021 5:19 PM PUMPER HEAD Last Filed Vital Signs Vital Sign Reading [...] this topic Medical Devices Implanted Type Area Raw Mill Operator Device Shelf Model / Identifier Expiration Serial [...] 9:09 AM CDT) Analysis Performed At [facility] Time Signature Source Urine, Urine, 04/28/2022 NPRG [...] 8.0 04/28/2022 11:36 AM CDT NPRG Specific [place] 1.015 1.001 - 1.035 04/28/2022 11:36 AM [...] Organization Address City/State/ZIP Code Phon e Number [address] [place] [address] [place] [address] [place] [address] [address] [facility] Influenza A/B, SARS CoV-2, PCR, Rapid, Varies (04/28/2022 8:48 AM CDT) [facility] Method Time Signature Influenza A, Negative Negative 04/28/2022 NPRG PCR, Rapid, V 9:26 AM CDT Influenza B, Negative Negative 04/28/2022 NPRG PCR, Rapid, V 9:26 AM CDT SARS CoV-2, Undetected Undetected 04/28/2022 NPRG PCR, Rapid, V 9:26 AM CDT Comment: ----ADDITIONAL INFORMATION---- This RT-PCR test was performed using the Carissa SARS-CoV-2 and Influenza A/B Reagent assay from [employer], which has received Emergency Use Authori zation(EUA) by the U.S. Food and Drug Administration . Fact sheets for this Emergency Use Autho rization (EUA) assay can be found at the following link s: For Healthcare Providers: https://www.fda.gov/media/487114/downloa d For Patients: https://www.fda.gov/media/963273/downloa d Infl A/B, SARS CoV-2, PCR, Source Swab, Nasopharynx 04/28/2022 9:02 AM CDT NPRG Specimen Anatomical Collection Method Collection Time Receive d Time (Source) Location / / Volume Laterality Varies 04/28/2022 8:48 AM 9:02 CDT AM CDT Rylie Mcdowell M.D. LAB MICROBIOLOGY - GENERAL O RDERABLES Performing Organization Address [facility] [place] Phon e Number [address] LAB NPRG [place] [phone] Protein/Creatinine Ratio, Random, Urine (03/31/2022 5:34 [...] M.D. LAB URINE ORDERABLES Performing Organization Address [facility] [place] Phon e Number [address] LAB NPRG [place] [phone] ALT (Alanine Aminotransferase) (03/31/2022 5:31 PM CDT) Patholo gist Method Time Signature Alanine 10 7 - 45 03/31/2022 NPRG Aminotransferase U/L 5:59 PM CDT (ALT), P Specimen Anatomical Collection Method Collection Time Receive d Time (Source) Location / / Volume Laterality Blood (Blood, 03/31/2022 5:31 PM 03/31/20 22 5:34 Venous) CDT PM CDT Cheikh Gautam M.D. LAB BLOOD ADD-ON Performing Organization Address City/[facility]/ZIP Code Phon e Number [place] [address] [address] [place] [address] [place] [address] [place] [address] AST (Aspartate Aminotransferase) (03/31/2022 5:31 PM [...] M.D. LAB BLOOD ADD-ON Performing Organization Address [facility]/ZIP [facility] Phon e Number [address] LAB NPRG [place] [phone] (ABNORMAL) Creatinine with Estimated GFR (03/31/2022 5:31 PM CDT) P athologist Signature Creatinine, P 0.58 (L) 0.59 - 03/31/2022 NPRG 1.04 mg/dL 5:59 PM CDT eGFR-Black/Afr >90 >=60 03/31/2022 NPRG ican Burmese mL/min/BSA 5:59 PM CDT Comment: ----ADDITIONAL INFORMATION---- [...] Organization Address City/State/ZIP Code Phon e Number [facility]- [address] [facility] [place] [address] [address] [facility] [address] [place] [address] [address] [facility] Chlamydia / Gonorrhoeae Amplified RNA (03/27/2022 10:42 AM CDT) [facility] gist Method Time Signature Source Urine, [...] Organization Address City/State/ZIP Code Phon e Number [facility]- [address] [place] [address] [place] [address] System in [address] US OB Anatomy Martins (03/27/2022 10:28 [...] Typ e / Group Dates EMPLOYERS EMPLOYERS [id number] 2019-Pres [phone] [address] nity INSURANCE INSURANCE ent [phone] [place] [address] [facility] EXPRESS [id number] 2021-Pres [phone] [address] Medicaid HMO ent [address] [place] [address] Lulu Mata Workers Comp Self 1990 [address] [facility] (Home) [place] [address] Lulu Mata Third Constitution Party Self [address] [employer] (Home) [place] [address] Care Teams Email Marketing Manager Relationship Specialty Start Date End Date Ben Arce M.D. PCP - General Family Medicine 01/13/[address] [place] [phone]
--- OUTSIDE RECORDS SUMMARY | 2022-05-31 19:36 | XMS_ITS | Encounter Summary ---
:1990 Author Organization [facility] Address [address] [place] [address] Care Team Providers Name Role Phone Ben Arce M.D. Primary Care Provider Reason for Visit Reason Comments Routine Visit Patient seen in L&D yesterda y for decreased movement and spotting Outpatient (Routine) - Authorized Specialty Diagnoses / Procedures Referred By Contact Refer red To Contact Obstetrics and Cheikh Gautam [facility] Gynecology M.DMaribell Referral ID Status Reason Start Date Expiration Date Visits V isits Requested Authorized [id number] Authorized 12/20/2021 12/20/2022 15 15 Encounter Details Date Type Department Care Team Description 04/18/2022 Routine Department of Rylie Mcdowell, 23 Weeks Gestation Obstetrics and M.D. ([facility]) Gynecology in [address] (Primary Dx) [place] [address] [address] [facility] [address] [place], [place] [phone] (Work) [phone] Social History Tobacco Use Types Packs/Day Years [...] do you attend voodoo or Never 2021 tenriism services? Do you belong to any clubs [...] Date Recorded Female 12/02/2021 5:19 PM SUPERVISOR TRAIN OPERATIONS documented as of this encounter Last Filed [...] documented as of this encounter Care Teams Magazine Journalist Relationship Specialty Start Date End Date Ben Arce M.D. PCP - General Family Medicine 01/13/[address] [facility] [phone] documented as of this encounter
--- OUTSIDE RECORDS SUMMARY | 2022-05-31 19:36 | XMS_ITS | Encounter Summary ---
:1990 Author Organization [facility] Address [address] [place] [address] Care Team Providers Name Role Phone Ben Arce M.D. Primary Care Provider Reason for Visit Reason Comments Nausea Vomiting During Auth/Cert Specialty Diagnoses / Procedures Referred By Contact Refer red To Contact Diagnoses . Procedures . Referral ID Status Reason Start Date Expiration Date Visits Requ ested Visits Authorized [id number] 1 1 Encounter Details Date Type Department Care Team Description 04/28/2022 Hospital Encounter [facility] Rylie Mcdowell Encounte r [facility] Praguolive Hennessy Supervision Of [facility], [place] [id number] [facility] Normal Floor [place], [place] Unspecified [address] [place] [address] Trimester (HCC) [place], [place] [phone] (Work) [phone] Social History Tobacco Use Types Packs/Day Years [...] or slept in a prison (including now)? Education Answer Date Recorded What is the highest level of school you have completed or 12 th grade 05/17/2021 the highest degree you have received? Sex Assigned at Date Recorded Female 12/02/2021 5:19 PM CORNETIST documented as of this encounter Last Filed [...] Sig Dispensed Refills Start Date End Date aspirin 81 mg chewable Chew 81 mg daily. 0 tablet famotidine (PEPCID) 40 mg Take 1 tablet (40 30 tablet 3 08/2022 tablet mg total) by mouth 2 (two) times a day. Take 1 tablet by 90 tablet 3 12/01/2021 vit27,calcium/iron/FA mouth daily. (multivitamin/mineral-pren atal) tablet acetaminophen (TYLENOL) Take 1,000 mg by 0 500 mg tablet mouth every 6 (six) hours as needed for pain. breast pump device 1 each Cyclic PN - 1 each 0 2 03/01/2023 see admin instructions. calcium carbonate-vitamin Take 1 tablet by 0 [...] stated she has a clinic appointment at [facility] on Sunday with her normal doctor. [...] 8.0 04/28/2022 11:36 AM CDT NPRG Specific [place] 1.015 1.001 - 1.035 04/28/2022 11:36 AM [...] Organization Address City/State/ZIP Code Phon e Number [place] [address] [address] [place], [place] [address] [address] [place] [address] Influenza A/B, SARS CoV-2, PCR, Rapid, Varies (04/28/2022 8:48 AM CDT) [facility] Method Time Signature Influenza A, Negative Negative 04/28/2022 NPRG PCR, Rapid, V 9:26 AM CDT Influenza B, Negative Negative 04/28/2022 NPRG PCR, Rapid, V 9:26 AM CDT SARS CoV-2, Undetected Undetected 04/28/2022 NPRG PCR, Rapid, V 9:26 AM CDT Comment: ----ADDITIONAL INFORMATION---- This RT-PCR test was performed using the Carissa SARS-CoV-2 and Influenza A/B Reagent assay from [employer], which has received Emergency Use Authori zation(EUA) by the U.S. Food and Drug Administration . Fact sheets for this Emergency Use Autho rization (EUA) assay can be found at the following link s: For Healthcare Providers: https://www.fda.gov/media/214223/downloa d For Patients: https://www.fda.gov/media/700333/downloa d Infl A/B, SARS CoV-2, PCR, Source Swab, Nasopharynx 04/28/2022 9:02 AM CDT NPRG Specimen Anatomical Collection Method Collection Time Receive d Time (Source) Location / / Volume Laterality Varies 04/28/2022 8:48 AM 9:02 CDT AM CDT Rylie Mcdowell M.D. LAB MICROBIOLOGY - GENERAL O RDERABLES Performing Organization Address City/State/ZIP Code Phon e Number [address] [address] [place] [address] documented in this encounter Visit Diagnoses [...] documented as of this encounter Care Teams Supercalender Operator Relationship Specialty Start Date End Date Ben Arce M.D. PCP - General Family Medicine 01/13/[address] [place] [phone] documented as of this encounter
--- OUTSIDE RECORDS SUMMARY | 2022-05-31 19:37 | XMS_ITS | Encounter Summary ---
:1990 Author Organization [facility] Address [address] [place] [address] Care Team Providers Name Role Phone Ben Arce M.D. Primary Care Provider Reason for Referral Outpatient (Routine) - Authorized Specialty Diagnoses / Procedures Referred By Contact Refer red To Contact Obstetrics and Cheikh Gautam [facility] Gynecology M[place]o Referral ID Status Reason Start Date Expiration Date Visits V isits Requested Authorized [id number] Authorized 12/20/2021 12/20/2022 15 15 Scheduling Instructions Every 4 weeks until 28 week gestation. Then every 2 weeks until 36 week gestati on. Then every 1 week until 40+ week gestati on. ER OR PRESSER Reason for Visit Reason Comments Initial Visit 7w 3d Outpatient (Routine) - Closed Specialty Diagnoses / Procedures Referred By Contact Refer red To Contact Obstetrics and Diagnoses Examination Test With Positive Result (HCC) Terrence Swenson M.[facility]. [facility] [address] [place] [address] Referral ID Status Reason Start Date Expiration Date Visits Requ ested Visits Authorized [id number] Closed 12/01/2021 12/01/2022 1 1 Encounter Details Date Type Department Care Team Description 12/20/2021 Initial Department of Obstetrics [place] in [place]: 6w1d and Gynecology in M.DMaribell [place], [place] [address] [place] [address] Social History Tobacco Use Types Packs/Day [...] do you attend amish or Never 2021 presybeterian services? Do you belong to any clubs [...] slept in a care home (including now)? Education Answer Date Recorded What is the highest level of school you have completed or 12 th grade 05/17/2021 the highest degree you have received? Sex Assigned at Date Recorded Female 12/02/2021 5:19 PM IRONER OR PRESSER documented as of this encounter Last Filed Vital Signs Vital Sign Reading Time Taken Comments Blood Pressure 136/80 12/20/2021 10:52 AM IRONER OR PRESSER Pulse - - Temperature - - Respiratory Rate - - Oxygen Saturation - - Inhaled Oxygen Concentration - - Weight 69.2 kg (152 lb 8.9 oz) 12/20/2021 10:52 AM IRONER OR PRESSER Height - - Body Mass Index 28.8 12/09/2021 8:31 AM IRONER OR PRESSER documented in this encounter Progress Notes Cheikh [...] and Family: Twice a week ??? Attends Catholic Services: Never ??? Active Member of Clubs [...] Vaccinations: COVID complete but needs booster/Flu declines Coffee Shop Aide: Pap NIL w/ neg HPV 11/2021 Aneuploidy screening/Carrier Screening: declines Preeclampsia prevention: aspirin to start at 12 weeks FAS: 28 week labs: TDAP /Rhogam GBS Growth Ultrasounds: surveillance: Presentation (36 weeks): Del planning: PPBC: Problems: 1. Hx preeclampsia: aspirin to start at 12 weeks. Need to get baseline preE labs 2. Hx GDM: Early A1C ordered ER OR PRESSER documented in this encounter Plan of Treatment [...] Diagnoses Obstetrics and Outpatient Referral Routine 15 [facility] Gynecology office starting 0 12/20/2021 visit (clinic) [...] US PROCEDURES Hemoglobin A1c (12/20/2021 11:34 AM IRONER OR PRESSER) P athologist Signature Hemoglobin A1c, 5.2 4.2 - 5.6 12/20/2021 [place] B % 12:27 PM IRONER OR PRESSER Specimen Anatomical Collection Method Collection Time Receive d Time (Source) Location / / Volume Laterality Blood (Blood, 12/20/2021 11:34 12/20/2021 Venous) AM IRONER OR PRESSER 11:40 AM IRONER OR PRESSER Cheikh Gautam M.D. LAB BLOOD ADD-ON Performing Organization Address City/State/ZIP Code Phon e Number [facility]- [address] [place] [address] [facility] [place] [address] System in [place] [address] documented in this [...] documented as of this encounter Care Teams Hotel Office Manager Relationship Specialty Start Date End Date Ben Arce M.D. PCP - General Family Medicine 01/13/[address] [place] [phone] documented as of this encounter
--- OUTSIDE RECORDS SUMMARY | 2022-05-31 19:37 | XMS_ITS | Encounter Summary ---
:1990 Author Organization [facility] Address [address] [place] [address] Care Team Providers Name Role Phone Ben Arce M.D. Primary Care Provider Reason for Visit Reason Comments Nurse Visit NOB ED/INTAKE APPT Encounter Details Date Type Department Care Team Description 12/08/2021 Virtual Visit Department of Terrence Swenson M.D. [address] [address] Encounter For Supervision Of Other Stella l Unspecified Trimester (Primary Dx); Obstetrics and Autumn Patel R.N. [address] [address] Examination Test With Positive Result Gynecology in [place], [place] [address] [address] Social History Tobacco Use Types [...] do you attend voodoo or Never 2021 christianity services? Do you belong to any clubs [...] at Date Recorded Female 12/02/2021 5:19 PM PICKERS MATERIAL HANDLERS documented as of this encounter Patient Instructions [...] Provided Today: Beginnings: , , and [facility] brochure-[facility] Emergency Department of [facility] ERS MATERIAL HANDLERS documented in this encounter Progress Notes Autumn Patel R.N. - 12/08/2021 1:30 PM CST Consult conducted via real-time audio/video technology by Autumn Patel R.N. in [facility] to the patient in Patient's Home. episode opened-please see history for details. Conceived with Nexplanon in place-this was removed after positive Beta Hcg. 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 Denies concerns. Encouraged to call with questions or concerns. ERS MATERIAL HANDLERS documented in this encounter Plan of Treatment Not on filedocumented as of this encounter Results Hepatitis C Virus Antibody Screen (12/20/2021 11:34 AM PICKERS MATERIAL HANDLERS) athologist Signature HCV Ab Scrn Negative Negative 12/21/2021 [facility] , S 8:10 AM PICKERS MATERIAL HANDLERS Comment: Zxoyqv-hy-cwftos ratio is <1.00 . Specimen Anatomical Collection Method Collection Time Receive d Time (Source) Location / / Volume Laterality Blood (Blood, 12/20/2021 11:34 12/21/2021 6:40 Venous) AM PICKERS MATERIAL HANDLERS AM PICKERS MATERIAL HANDLERS Cheikh Gauatm M.D. LAB MICROBIOLOGY - BLOOD ORD ERABLES Performing Organization Address City/State/ZIP Code Phon e Number [facility] [address] [place] [phone] [facility] [place] [address] Laboratory Medicine and Pathology [address] [place] Syphilis Total Ab w/ Reflex, Serum (12/20/2021 11:34 AM PICKERS MATERIAL HANDLERS) [facility] Method Time Signature Syphilis Nonreactive Nonreactive 12/21/2021 [facility] Total Ab w/ 11:40 AM PICKERS MATERIAL HANDLERS Reflex Comment: No serologic evidence of infection with T. pallidum (syphilis). ??Repeat testing may be cons idered in patients with suspected acute or primary syphilis in 2-4 weeks. For additional information on interpreta tion of the syphilis reverse algorithm and resul ts, see: [email or web address] df Specimen Anatomical Collection Method Collection Time Receive d Time (Source) Location / / Volume Laterality Blood (Blood, 12/20/2021 11:34 12/20/2021 6:27 Venous) AM PICKERS MATERIAL HANDLERS PM PICKERS MATERIAL HANDLERS Cheikh Gautam M.D. LAB BLOOD ADD-ON Performing Organization Address City/[facility] Phon e Number [facility]- [address] [place] [phone] [facility] [place] [address] System [address] Rubella Antibodies, IgG (12/20/2021 11:34 AM PICKERS MATERIAL HANDLERS) athologist Signature Rubella Ab, Positive 12/21/2021 [facility] IgG, S 11:40 AM PICKERS MATERIAL HANDLERS Comment: Results suggest response to immunization or prior exposure to the virus. ----REFERENCE VALUE---- Vaccinated: Positive (>=1.0 AI) Unvaccinated: Negative (<=0.7 AI) Rubella IgG Antibody Index 2.6 12/21/2021 11 :40 AM PICKERS MATERIAL HANDLERS [facility] Specimen Anatomical Collection Method Collection Time Receive d Time (Source) Location / / Volume Laterality Blood (Blood, 12/20/2021 11:34 12/20/2021 6:27 Venous) AM PICKERS MATERIAL HANDLERS PM PICKERS MATERIAL HANDLERS Cheikh Gautam M.D. LAB MICROBIOLOGY - BLOOD ORD ERABLES Performing Organization Address City/State/ZIP Code Phon e Number [facility]- [address] [place] [phone] [place] [address] System [address] HIV-1/-2 Ag and Ab Scrn, Plasma (12/20/2021 11:34 AM PICKERS MATERIAL HANDLERS) P athologist Signature HIV Ag/Ab Negative Negative 12/21/2021 [facility] Scrn, 11:40 AM PICKERS MATERIAL HANDLERS P Comment: Negative result does not rule out HIV in fection. If exposure to HIV infection occurred <14 d ays ago, contact the laboratory to request additi on of HIV-1 RNA detection / quantification test. HIV-1 p24 Ag Scrn, P Negative Negative 12/21/2021 11:40 AM PICKERS MATERIAL HANDLERS [place] Comment: Negative result does not rule out HIV in fection. If exposure to HIV infection occurred <14 d ays ago, contact the laboratory to request additi on of HIV-1 RNA detection / quantification test. HIV-1 Ab Scrn, P Negative Negative 12/21/2021 11: 40 AM PICKERS MATERIAL HANDLERS [place] Comment: Negative result does not rule out HIV in fection. If exposure to HIV infection occurred <14 d ays ago, contact the laboratory to request additi on of HIV-1 RNA detection / quantification test. HIV-2 Ab Scrn, P Negative Negative 12/21/2021 11: 40 AM PICKERS MATERIAL HANDLERS [facility] Comment: Negative result does not rule out HIV in fection. If exposure to HIV infection occurred <14 d ays ago, contact the laboratory to request additi on of HIV-1 RNA detection / quantification test. Specimen Anatomical Collection Method Collection Time Receive d Time (Source) Location / / Volume Laterality Blood (Blood, 12/20/2021 11:34 12/20/2021 6:27 Venous) AM PICKERS MATERIAL HANDLERS PM PICKERS MATERIAL HANDLERS Cheikh Gautam M.D. LAB MICROBIOLOGY - BLOOD ORD ERAKAMALJIT Performing Organization Address City/State/ZIP Code Phon e Number [facility]- [address] [place] [address], [place] [phone] [place] [place] [address] System in [place] HBs Antigen , Serum (12/20/2021 11:34 AM PICKERS MATERIAL HANDLERS) [facility] Method Time Signature HBs Antigen Non reactive Non reactive 12/20/2021 [place] , S 4:50 PM PICKERS MATERIAL HANDLERS Specimen Anatomical Collection Method Collection Time Receive d Time (Source) Location / / Volume Laterality Blood (Blood, 12/20/2021 11:34 12/20/2021 3:49 Venous) AM PICKERS MATERIAL HANDLERS PM PICKERS MATERIAL HANDLERS Cheikh Gautam M.D. LAB MICROBIOLOGY - BLOOD ORD ERAKAMALJIT Performing Organization Address City/State/ZIP Code Phon e Number [facility]- [address] [place] [address] [facility] [place], [place] [id number] [place] [address] (ABNORMAL) CBC without Differential (12/20/2021 11:34 AM PICKERS MATERIAL HANDLERS) [facility] Method Time Signature Hemoglobin 14.1 11.6 - 12/20/2021 [facility] 15.0 g/dL 11:44 AM PICKERS MATERIAL HANDLERS Hematocrit 41.0 35.5 - 12/20/2021 [facility] 44.9 % 11:44 AM PICKERS MATERIAL HANDLERS Erythrocytes 4.91 3.92 - 12/20/2021 [facility] 5.13 11:44 AM PICKERS MATERIAL HANDLERS x10(12)/L MCV 83.5 78.2 - 12/20/2021 [facility] 97.9 fL 11:44 AM PICKERS MATERIAL HANDLERS RBC Distrib Width 11.7 (L) 12.2 - 12/20/2021 [facility] 16.1 % 11:44 AM PICKERS MATERIAL HANDLERS Platelet Count 360 157 - 371 12/20/2021 [facility] x10(9)/L 11:44 AM PICKERS MATERIAL HANDLERS Leukocytes 11.1 (H) 3.4 - 9.6 12/20/2021 [facility] x10(9)/L 11:44 AM PICKERS MATERIAL HANDLERS Specimen Anatomical Collection Method Collection Time Receive d Time (Source) Location / / Volume Laterality Blood (Blood, 12/20/2021 11:34 12/20/2021 Venous) AM PICKERS MATERIAL HANDLERS 11:40 AM PICKERS MATERIAL HANDLERS Cheikh Gautam M.D. LAB BLOOD ADD-ON Performing Organization Address City/State/ZIP Code Phon e Number [facility]- [address] [facility] [address] [place] [address] System in [place] [address] Antibody Screen, RBC (with reflex Antibody ID) (12/20/2021 11:34 AM PICKERS MATERIAL HANDLERS) P athologist Signature Antibody Screen NEG 12/20/2021 [facility] 5:16 PM PICKERS MATERIAL HANDLERS Specimen Anatomical Collection Method Collection Time Receive d Time (Source) Location / / Volume Laterality Blood (Blood, 12/20/2021 11:34 12/20/2021 3:49 Venous) AM PICKERS MATERIAL HANDLERS PM PICKERS MATERIAL HANDLERS Cheikh Gautam M.D. LAB BLOOD BANK TEST ORDERABL ES Performing Organization Address City/[facility]/ZIP Code Phon e Number [facility]- [address] [place] [address] [facility] - [address] ABORh, RBC (12/20/2021 11:34 AM PICKERS MATERIAL HANDLERS) P athologist Signature ABO Group O 12/20/2021 5:16 [place] PM PICKERS MATERIAL HANDLERS Rh Type POS 12/20/2021 5:16 [place] PM PICKERS MATERIAL HANDLERS Specimen Anatomical Collection Method Collection Time Receive d Time (Source) Location / / Volume Laterality Blood (Blood, 12/20/2021 11:34 12/20/2021 3:51 Venous) AM PICKERS MATERIAL HANDLERS PM PICKERS MATERIAL HANDLERS Cheikh Gautam M.D. LAB BLOOD BANK TEST ORDERABL ES Performing Organization Address City/State/ZIP Code Phon e Number [facility]- [address] [place] [address] [facility] - [address] Bacterial Culture, Aerobic + Susc, Urine (12/20/2021 11:26 AM PICKERS MATERIAL HANDLERS) [facility] Method Time Signature Urine Culture No growth 12/21/2021 [facility] after 1 day 8:40 AM PICKERS MATERIAL HANDLERS of incubation. Specimen Anatomical Collection Method Collection Time Receive d Time (Source) Location / / Volume Laterality Urine (Urine, 12/20/2021 11:26 12/20/2021 2:19 Midstream) AM PICKERS MATERIAL HANDLERS PM PICKERS MATERIAL HANDLERS Comment: Specimen Source Site: Urine Cheikh Gautam M.D. LAB MICROBIOLOGY - GENERAL O RDERABLES Performing Organization Address City/State/ZIP Code Phon e Number [facility]- [address] [place] [phone] [place] [address] [place] [address] System [address] Urinalysis with Microscopic if Indicated (12/20/2021 11:26 AM PICKERS MATERIAL HANDLERS) P athologist Signature Source Urine, 12/20/2021 [place] Urine, Clean 12:12 PM PICKERS MATERIAL HANDLERS Catch Clarity Clear Clear 12/20/2021 [place] 12:12 PM PICKERS MATERIAL HANDLERS Color Yellow 12/20/2021 [facility] 12:12 PM PICKERS MATERIAL HANDLERS Comment: ----REFERENCE VALUE---- Colorless Yellow Ronda Blood Negative Negative 12/20/2021 12:12 PM PICKERS MATERIAL HANDLERS [facility] Nitrite Negative Negative 12/20/2021 12:12 PM PICKERS MATERIAL HANDLERS [facility] Leukocyte Esterase Negative Negative 12/20/2021 12:[address] [facility] Protein Negative mg/dL 12/20/2021 12:12 PM PICKERS MATERIAL HANDLERS [facility] Comment: ----REFERENCE VALUE---- Negative Trace Glucose Negative Negative mg/dL 12/20/2021 12:12 PM PICKERS MATERIAL HANDLERS O FRANSICO Ketone Negative Negative mg/dL 12/20/2021 12:12 PM PICKERS MATERIAL HANDLERS O FRANSICO Bilirubin Negative Negative 12/20/2021 12:12 PM PICKERS MATERIAL HANDLERS [facility] pH 6.0 5.0 - 8.0 12/20/2021 12:12 PM PICKERS MATERIAL HANDLERS [facility] Specific Allison 1.005 1.001 - 1.035 12/20/2021 12:12 PM PICKERS MATERIAL HANDLERS [facility] Urobilinogen 0.2 0.2 - 1.0 mg/dL 12/20/2021 12:[address] [facility] Specimen Anatomical Collection Method Collection Time Receive d Time (Source) Location / / Volume Laterality Urine (Urine, 12/20/2021 11:26 12/20/2021 Clean Catch) AM P[employer]ERS MATERIAL HANDLERS 12:06 PM PICKERS MATERIAL HANDLERS Cheikh Gautam M.D. LAB URINE ORDERABLES Performing Organization Address City/State/ZIP Code Phon e Number [facility]- [address] [place] [address] [place] [address] System in [place] [address] documented in this encounter Visit Diagnoses Diagnosis Encounter For Supervision Of Other Stella l Unspecified Trimester (HCC) - Primary Examination Test With Positive Result (HCC) documented in this encounter Care Teams Snow Remover Relationship Specialty Start Date End Date Ben Arce M.D. PCP - General Family Medicine 01/13/[address] [place] [address] documented as of this encounter
--- OUTSIDE RECORDS SUMMARY | 2022-05-31 19:37 | XMS_ITS | Encounter Summary ---
:1990 Author Organization [facility] Address [address] [place] [address] Care Team Providers Name Role Phone Ben Arce M.D. Primary Care Provider Reason for Visit Reason Comments Routine Visit 12+2weeks Sinusitis Concerns Outpatient (Routine) - Authorized Specialty Diagnoses / Procedures Referred By Contact Refer red To Contact Obstetrics and Cheikh Gautam [facility] william Gynecology MGonzalez Referral ID Status Reason Start Date Expiration Date Visits V isits Requested Authorized [id number] Authorized 12/20/2021 12/20/2022 15 15 Encounter Details Date Type Department Care Team Description 02/01/2022 Routine Department of Terrence Swenson High [facility] Obstetrics and MGonzalez (Primary Dx) Gynecology in [address] [address] [place], [place] [phone] [address] (Work) [phone] Social History Tobacco Use Types Packs/Day Years [...] or relatives? How often do you attend synagogue or Never 2021 zoroastrianism services? Do you belong to any clubs or No 11/20/2021 organizations such as synagogue groups, unions, fraternal or athletic groups, or [...] at Date Recorded Female 12/02/2021 5:19 PM MASS SPECTROSCOPIST documented as of this encounter Last Filed Vital Signs Vital Sign Reading Time Taken Comments Blood Pressure 130/86 02/01/2022 8:50 AM CDT Pulse - - Temperature - - Respiratory Rate - - Oxygen Saturation - - Inhaled Oxygen Concentration - - Weight 69.9 kg (154 lb 1.6 oz) 02/01/2022 8:49 AM CDT Height - - Body Mass Index 29.09 12/09/2021 8:31 AM MASS SPECTROSCOPIST documented in this encounter Progress Notes Terrence [...] ASSESSMENT / PLAN #1 High Risk - [id number] Plus-Sent Out Lab; Future; Expected date: 02/01/2022 [...] has been sent to her pharmacy in [place]. Most of the early symptoms of including [...] on filedocumented as of this encounter Results [id number] Plus-Sent Out Lab (02/01/2022 9:52 AM CDT) [...] Organization Address City/State/ZIP Code Phon e Number [facility] [address] [place] [address] [employer] [place] [address] [employer] [address] documented in this encounter Visit Diagnoses Diagnosis High Risk (HCC) - Primary documented in this encounter Additional Health Concerns Assessment Noted Time PHQ-9 Depression Total Score: 4 12/20/2021 10:52 AM CS T documented as of this encounter Care Teams Vp Compliance Relationship Specialty Start Date End Date Ben Arce M.D. PCP - General Family Medicine 01/13/[address] [place] [address] documented as of this encounter
--- OUTSIDE RECORDS SUMMARY | 2022-05-31 19:37 | XMS_ITS | Encounter Summary ---
:1990 Author Organization [facility] Address [address] [place] [address] Care Team Providers Name Role Phone Ben Arce M.D. Primary Care Provider Reason for Referral Specialty Diagnoses / Procedures Referred By Contact Refer red To Contact Ben Arce M.D. [facility] [address] [place] [address] Referral ID Status Reason Start Date Expiration Date Visits Requ ested Visits Authorized TIVE WRITING ENGLISH PROFESSOR Encounter Details Date Type Department Care Team Description 11/20/2021 Orders Only [facility] PCP HLTH MNT Kimberly Arce M.D. [address] [place], [place] [address] (Wo rk) Social History [...] or relatives? How often do you attend temple or Never 2021 sabianism services? Do you belong to any clubs or No 11/20/2021 organizations such as temple groups, unions, fraternal or athletic groups, or [...] at Date Recorded Female 12/02/2021 5:19 PM CREATIVE WRITING ENGLISH PROFESSOR documented as of this encounter Plan of Treatment Scheduled Referrals Name Type Priority Associated Order Schedule Diagnoses Covid immunization Outpatient Referral Routine Ex pected: office visit Booster 022 (Approximate), Expires: 11/20/2022 documented as of this encounter Visit Diagnoses Not on filedocumented in this encounter Care Teams Management Advisor Relationship Specialty Start Date End Date Ben Arce M.D. PCP - General Family Medicine 01/13/[address] [place] [phone] documented as of this encounter
--- OUTSIDE RECORDS SUMMARY | 2022-05-31 19:37 | XMS_ITS | Encounter Summary ---
:1990 Author Organization [facility] Address [address] [place] [address] Care Team Providers Name Role Phone Ben Arce M.D. Primary Care Provider Reason for Visit Reason Comments Routine Visit 16 2/7 wk ob check pelvic/lo wer back pain 7/10 pain scale, needs referral to chiropract or Outpatient (Routine) - Authorized Specialty Diagnoses / Procedures Referred By Contact Refer red To Contact Obstetrics and Cheikh Gautam [facility] william Gynecology M.DMaribell Referral ID Status Reason Start Date Expiration Date Visits V isits Requested Authorized [id number] Authorized 12/20/2021 12/20/2022 15 15 Encounter Details Date Type Department Care Team Description 03/01/2022 Routine Department of Terrence Swenson Pregnan cy Examination Test With Positive Result (HCC) (Primary Dx); Obstetrics and M.D. Encounter For Supervision Of Normal Preg roberta Unspecified Trimester (HCC) Gynecology in [address] [place], [place] [address] [place], [place] [phone] [address] (Work) [phone] Social History Tobacco Use Types Packs/Day Years [...] do you attend worship or Never 2021 adventism services? Do you belong to any clubs or No 11/20/2021 organizations such as worship groups, unions, fraDE Spirits or athletic groups, or school groups? 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 Attends Mormonism Services: Never ??? Active Member of Clubs [...] documented as of this encounter Care Teams Dobby Loom Chain Pegger Relationship Specialty Start Date End Date Ben Arce M.D. PCP - General Family Medicine 01/13/[address] [place] [phone] documented as of this encounter
--- OUTSIDE RECORDS SUMMARY | 2022-05-31 19:37 | XMS_ITS | Encounter Summary ---
:1990 Author Organization [facility] Address [address] [place] [address] Care Team Providers Name Role Phone Ben Arce M.D. Primary Care Provider Reason for Visit Reason Comments Nausea OTHER Breast pain Vomiting Positive at home test X 4 Encounter Details Date Type Department Care Team Description 11/24/2021 Comprehensive Visit Department of Grant Jones ncsharyn Test (Primary Dx); Obstetrics and J, SCOW HAND, Counseling Bi rth Control; Gynecology in [facility] C.N.P., M.S.N. Pap Smear Examination [place], [place] [address] [place] [phone] Social History Tobacco Use Types Packs/Day Years [...] do you attend jew or Never 2021 jainism services? Do you [...] or slept in a snf (including now)? Education Answer Date Recorded What is the highest level of school you have completed or 12 th grade 05/17/2021 the highest degree you have received? Sex Assigned at Date Recorded Female 12/02/2021 5:19 PM MANAGER TITLE documented as of this encounter Last Filed Vital Signs Vital Sign Reading Time Taken Comments Blood Pressure 166/67 11/24/2021 1:50 PM MANAGER TITLE Pulse 118 11/24/2021 1:49 PM MANAGER TITLE Temperature 37.2 ??C (99 ??F) 11/24/2021 1:49 PM MANAGER TITLE Respiratory Rate - - Oxygen Saturation - - Inhaled Oxygen Concentration - - Weight 71.6 kg (157 lb 12.8 oz) 11/24/2021 1:49 PM MANAGER TITLE Height - - Body Mass Index 29.79 11/08/2021 12:40 PM MANAGER TITLE documented in this encounter Progress Notes Grant [...] STD testing. Grant Jones APRN, Reji.NDany, M.S.N. GER TITLE documented in this encounter Miscellaneous Notes Addendum Note - Grant Jones APRN, Reji.N.P., M.S.N. - 11/24/2021 1:15 PM MANAGER TITLE Addended by: GRANT JONES on: 11/29/2021 08:00 AM Modules accepted: Orders GER TITLE documented in this encounter Plan of Treatment Not on filedocumented as of this encounter Procedures Procedure Name Priority Date/Time Associated Diagnosis Comme nts THINPREP W/HPV Routine 11/24/2021 4:49 PM Pap Smear Results for this CO-TEST SCREEN MANAGER TITLE Examination procedure are in the results section. HUMAN CHORIONIC Routine 11/24/2021 2:00 PM Test Resu lts for this GONADOTROPIN (HCG), MANAGER TITLE procedur e are in ROBERTA, the results section. HPV WITH GENOTYPING, Routine 11/24/2021 1:53 PM R esults for this PCR, THINPREP MANAGER TITLE procedure are in the results section. TEST, POCT, Routine 11/24/2021 1:14 PM Samira t Results for this U (LAB) MANAGER TITLE procedure are i n the results section. documented in this encounter Results ThinPrep w/HPV Co-Test Screen (11/24/2021 4:49 PM MANAGER TITLE) Component Value Ref Test Analysis Performed Pathologis t Range Method Time At Signature 11/28/2021 HK 3:47 PM MANAGER TITLE Report DEBRA Boles(ASCP) 11/28/2021 HK electronically 3:47 PM signed by MANAGER TITLE I verify that I have examined all relevant slides/materials for the specimen(s) and rendered or confirmed the diagnosis. Gross Description Received specimen 11/28/2021 HK Y in a ThinPrep 3:47 PM vial. MANAGER TITLE Pap Test Source Cervical/Endocervi 11/28/2021 HKCY lizbeth 3:47 PM MANAGER TITLE Interpretation Cervical/Endocervical ??(ThinPrep): 11/28/2021 HKCY 3:47 PM Satisfactory for Evaluation MANAGER TITLE Negative for Intraepithelial Lesion or Malignancy Shift [...] Laterality Varies 11/24/2021 4:49 PM 6:36 (Cervix/Endocerv MANAGER TITLE AM MANAGER TITLE ix) Narrative This result has an attachment that is no t available. Reji Polanco APRN.N.P., M.S.N. LAB PAP PATHDX ORD ERABLES Performing Organization Address City/State/ZIP Code Phon e Number [facility]- [address] [place] [address] [facility] [place] [facility] [address] [facility] Cytology 10[address] [facility] (ABNORMAL) hCG (Human Chorionic Gonadotropin), Quantitative, (11/24/2021 2:00 PM MANAGER TITLE) athologist Signature HCG, 6.9 (H) <5 IU/L 11/24/2021 NPRG Quantitative, 2:22 PM MANAGER TITLE , P Comment: Biotin has been identified by the meir toro as a potential interfering substance. ??Higher concentr ations of biotin may be found in multivitamins, hair/nail supple ments, and workout supplements. ??If the result does not ma [facility] clinical observations, repeat testing after patient refrains fr om the use of supplements for at least 12 hours. Specimen Anatomical Collection Method Collection Time Receive d Time (Source) Location / / Volume Laterality Blood (Blood, 11/24/2021 2:00 PM 11/24/19 2:01 Venous) MANAGER TITLE PM MANAGER TITLE Grant Jones APRN, C.N.P., M.S.N. LAB BLOOD ADD-ON Performing Organization Address City/State/ZIP Code Phon e Number [facility]- [address] [place], [place] [address] [place] [address] [place] [address] [place] [address] [place] HPV with Genotyping, PCR, ThinPrep (11/24/2021 1:53 PM MANAGER TITLE) athologist Signature HPV with Negative Negative 11/25/2021 MKTO Genotyping, 3:27 PM MANAGER TITLE ThinPrep, PCR Comment: Negative for high risk HPV by nucleic ac id amplification. ??The following high risk HPV types were not detected: 16, 18, 31, 33, 35, 39, 45, 51, 52, 56, 58, 59, 66, and 68 Specimen Anatomical Collection Method Collection Time Receive d Time (Source) Location / / Volume Laterality Varies 11/24/2021 1:53 PM 6:36 MANAGER TITLE AM MANAGER TITLE Reji Polanco APRN.N.Anna., M.S.N. LAB MICROBIOLOGY - GENERAL ORDERABLES Performing Organization Address City/[facility]/ZIP Code Phon e Number [facility]- [address] [place] [address] [place] [address] System in [place] 1025 [facility] Test, POCT, Urine (lab) (11/24/2021 1:14 PM MANAGER TITLE) P athologist Signature Negative 11/24/2021 NPRG Test, POCT, U 1:21 PM MANAGER TITLE Specimen Anatomical Collection Method Collection Time Receive d Time (Source) Location / / Volume Laterality Urine (Urine, 11/24/2021 1:14 PM 11/24/19 1:14 Clean Catch) MANAGER TITLE PM MANAGER TITLE Grant Jones APRN, C.N.P., M.S.N. LAB POCT ORDERABLE S - DEVICE Performing Organization Address City/[facility]/ZIP Code Phon e Number [facility]- [address] [place] [address] [place] [address] LAB NPRG [facility] [place] [address] documented in this encounter Visit Diagnoses Diagnosis Test - Primary Counseling Control Pap Smear Examination documented in this encounter Care Teams Certified Dental Assistant Relationship Specialty Start Date End Date Ben Arce M.D. PCP - General Family Medicine 01/13/[address] [place] [phone] documented as of this encounter
--- OUTSIDE RECORDS SUMMARY | 2022-05-31 19:37 | XMS_ITS | Encounter Summary ---
:1990 Author Organization [facility] Address [address] [place] [address] Care Team Providers Name Role Phone Ben Arce M.D. Primary Care Provider Reason for Visit Reason Comments Routine Visit 20weeks Outpatient (Routine) - Authorized Specialty Diagnoses / Procedures Referred By Contact Refer red To Contact Obstetrics and Cheikh Gautam [facility] william Gynecology Minoo Referral ID Status Reason Start Date Expiration Date Visits V isits Requested Authorized [id number] Authorized 12/20/2021 12/20/2022 15 15 Encounter Details Date Type Department Care Team Description 03/27/2022 Routine Department of Cheikh Gautam k (HCC) (Primary Dx); Obstetrics and Minoo Garcia Encounter For Supervision Of Normal Unspecified Trimester (HCC) Gynecology in [place], [place] [address] [place] [phone] Social History Tobacco Use Types Packs/Day Years [...] or relatives? How often do you attend alevism or Never 2021 orthodox services? Do you belong to any clubs or No 11/20/2021 organizations such as alevism groups, unions, fraternal or athletic groups, or [...] at Date Recorded Female 12/02/2021 5:19 PM AIR TECHNICIAN documented as of this encounter Last [...] -Gonorhrea/chlamydia urine today -Patient is transferring to [place] because it is closer -Problem list updated [...] Vaccinations: COVID complete but needs booster/Flu declines Tax Services Manager: Pap NIL w/ neg HPV 11/2021 [...] she told me she is transferring to [place] because it is closer. documented in this encounter Plan of Treatment Not on filedocumented as of this encounter Procedures Procedure Name Priority Date/Time Associated Diagnosis Comme nts CHLAMYDIA/GONORRHOE Routine 03/27/2022 10:42 AM High Risk Preg roberta Results for this AE AMPLIFIED RNA CDT ([facility]) procedure a re in the [...] M.D. LAB URINE ORDERABLES Performing Organization Address City/[facility]/ZIP Code Phon e Number [place] [address] [address] [place], [place] [address] [address] [place] [facility] [place] [phone] ALT (Alanine Aminotransferase) (03/31/2022 5:31 PM CDT) Patholo gist Method Time Signature Alanine 10 7 - 45 03/31/2022 NPRG Aminotransferase U/L 5:59 PM CDT (ALT), P Specimen Anatomical Collection Method Collection Time Receive d Time (Source) Location / / Volume Laterality Blood (Blood, 03/31/2022 5:31 PM 03/31/20 5:34 Venous) CDT PM CDT Cheikh Gautam M.D. LAB BLOOD ADD-ON Performing Organization Address City/[facility] Phon e Number [address] [address] [place] [facility] [place] [phone] [address] AST (Aspartate Aminotransferase) (03/31/2022 5:31 PM CDT) [facility] Method Time Signature Aspartate 13 8 - 43 03/31/2022 NPRG Aminotransferase U/L 5:59 PM CDT (AST), P Specimen Anatomical Collection Method Collection Time Receive d Time (Source) Location / / Volume Laterality Blood (Blood, 03/31/2022 5:31 PM 03/31/20 22 5:34 Venous) CDT PM CDT Cheikh Gautam M.D. LAB BLOOD ADD-ON Performing Organization Address City/[facility]/ZIP Code Phon e Number [place] [address] [address] [place], [place] [address] [place] [facility] [place] [phone] (ABNORMAL) Creatinine with Estimated GFR (03/31/2022 5:31 PM CDT) P athologist Signature Creatinine, P 0.58 (L) 0.59 - 03/31/2022 NPRG 1.04 mg/dL 5:59 PM CDT eGFR-Black/Afr >90 >=60 03/31/2022 NPRG ican Lao mL/min/BSA 5:59 PM CDT Comment: ----ADDITIONAL INFORMATION---- [...] M.D. LAB BLOOD ADD-ON Performing Organization Address City/[facility] Phon e Number [facility]- [address] [place] [address] [place] [address] [place] [address] Chlamydia / Gonorrhoeae Amplified RNA (03/27/2022 [...] - GENERAL O RDERABLES Performing Organization Address City/[facility] Code Phon e Number [facility]- [address] [place] [address] [place] [address] System in [place] [address] [facility] documented in this encounter Visit Diagnoses Diagnosis High Risk (HCC) - Primary Encounter For Supervision Of Normal Preg roberta Unspecified Trimester (HCC) documented in this encounter Additional Health Concerns Assessment Noted Time PHQ-9 Depression Total Score: 4 12/20/2021 10:52 AM CS T documented as of this encounter Care Teams Certified Appliance Service Technician Relationship Specialty Start Date End Date Ben Arce M.D. PCP - General Family Medicine 01/13/[address] [place] [phone] documented as of this encounter
--- OUTSIDE RECORDS SUMMARY | 2022-05-31 19:37 | XMS_ITS | Encounter Summary ---
:1990 Author Organization [facility] Address [address] [place] [address] Care Team Providers Name Role Phone Ben Arce M.D. Primary Care Provider Encounter Details Date Type Department Care Team Description 11/24/2021 Orders Only Department of Robert, Erika Hammer, Abnormal L aboratory Obstetrics and BRIDGES AND BUILDINGS SUPERVISOR, C.N.P., Results (Samina pendleton Dx) Gynecology in [place], [place] [address] [place] [phone] Social History Tobacco Use Types Packs/Day Years [...] do you attend christianity or Never 2021 methodist services? Do you belong to any clubs [...] or slept in a chcf (including now)? Education Answer Date Recorded What is the highest level of school you have completed or 12 th grade 05/17/2021 the highest degree you have received? Sex Assigned at Date Recorded Female 12/02/2021 5:19 PM GRADUATE RESEARCH ASSISTANT documented as of this encounter Plan of Treatment Not on filedocumented as of this encounter Results (ABNORMAL) hCG (Human Chorionic Gonadotropin), Quantitative, (11/28/2021 4:00 PM GRADUATE RESEARCH ASSISTANT) P athologist Signature HCG, 94 (H) <5 IU/L 11/28/2021 NPRG Quantitative, 7:47 PM GRADUATE RESEARCH ASSISTANT , P Comment: Biotin has been identified by the meir toro as a potential interfering substance. ??Higher concentr ations of biotin may be found in multivitamins, hair/nail supple ments, and workout supplements. ??If the result does not ma [facility] clinical observations, repeat testing after patient refrains fr om the use of supplements for at least 12 hours. Specimen Anatomical Collection Method Collection Time Receive d Time (Source) Location / / Volume Laterality Blood (Blood, 11/28/2021 4:00 PM 11/28/19 22 6:56 Venous) GRADUATE RESEARCH ASSISTANT PM GRADUATE RESEARCH ASSISTANT Erika Jones APRN, C.N.P., M.S.N. LAB BLOOD ADD-ON Performing Organization Address City/State/ZIP Code Phon e Number [facility]- [address] [place], [place] [address] [place] [address] [place] [address] [facility] [address] [place] documented in this encounter Visit Diagnoses Diagnosis Abnormal Laboratory Results - Primary documented in this encounter Care Teams Information Systems Coordinator Relationship Specialty Start Date End Date Ben Arce M.D. PCP - General Family Medicine 01/13/[address] [place] [phone] documented as of this encounter
--- OUTSIDE RECORDS SUMMARY | 2022-05-31 19:37 | XMS_ITS | Encounter Summary ---
:1990 Author Organization [facility] Address [address] [place] [address] Care Team Providers Name Role Phone Ben Arce M.D. Primary Care Provider Encounter Details Date Type Department Care Team Description 12/20/2021 Hospital Encounter Department of Cheikh Gautam Laboratory Medicine Minoo Garcia Supervis ion Of Other in [facility] Unspecified [address] [place] [address] Social History Tobacco Use Types Packs/Day Years [...] do you attend yazdanism or Never 2021 confucianism services? Do you [...] at Date Recorded Female 12/02/2021 5:19 PM VOLUNTEER FIREFIGHTER documented as of this encounter Medications at [...] Encounter For Resul ts for this AM VOLUNTEER FIREFIGHTER Supervision Of Other procedu re are in Normal the results Unspecified section. Trimester URINALYSIS WITH Routine 12/20/2021 11:26 Encounter For Results for this MICROSCOPIC IF AM VOLUNTEER FIREFIGHTER Supervision Of Other proce dure are in INDICATED, U Normal the results Unspecified section. Trimester BACTERIAL CULTURE, Routine 12/20/2021 11:26 Encounter For Resu lts for this AEROBIC + SUSC, AM VOLUNTEER FIREFIGHTER Supervision Of Other proc edure are in URINE Normal the results Unspecified section. Trimester documented in this encounter Results Hemoglobin A1c (12/20/2021 11:34 AM VOLUNTEER FIREFIGHTER) P athologist Signature Hemoglobin A1c, 5.2 4.2 - 5.6 12/20/2021 OW[place] B % 12:27 PM VOLUNTEER FIREFIGHTER Specimen Anatomical Collection Method Collection Time Receive d Time (Source) Location / / Volume Laterality Blood (Blood, 12/20/2021 11:34 12/20/2021 Venous) AM VOLUNTEER FIREFIGHTER 11:40 AM VOLUNTEER FIREFIGHTER Cheikh Gautam M.D. LAB BLOOD ADD-ON Performing Organization Address City/State/ZIP Code Phon e Number [facility]- [address] [place] [address] [place] [address] System in [place] [address] Bacterial Culture, Aerobic + Susc, Urine (12/20/2021 11:26 AM VOLUNTEER FIREFIGHTER) Patholo gist Method Time Signature Urine Culture No growth 12/21/2021 MKTO after 1 day 8:40 AM VOLUNTEER FIREFIGHTER of incubation. Specimen Anatomical Collection Method Collection Time Receive d Time (Source) Location / / Volume Laterality Urine (Urine, 12/20/2021 11:26 12/20/2021 2:19 Midstream) AM VOLUNTEER FIREFIGHTER PM VOLUNTEER FIREFIGHTER Comment: Specimen Source Site: Urine Cheikh Gautam M.D. LAB MICROBIOLOGY - GENERAL O RDERABLES Performing Organization Address City/State/ZIP Code Phon e Number [facility]- [address] [place] [address] [place] [address] System in [place] [address] [place] [address] Urinalysis with Microscopic if Indicated (12/20/2021 11:26 AM VOLUNTEER FIREFIGHTER) P athologist Signature Source Urine, 12/20/2021 [place] Urine, Clean 12:12 PM VOLUNTEER FIREFIGHTER Catch Clarity Clear Clear 12/20/2021 [place] 12:12 PM VOLUNTEER FIREFIGHTER Color Yellow 12/20/2021 [place] 12:12 PM VOLUNTEER FIREFIGHTER Comment: ----REFERENCE VALUE---- Colorless Yellow Ronda Blood Negative Negative 12/20/2021 12:12 PM VOLUNTEER FIREFIGHTER OW[place] Nitrite Negative Negative 12/20/2021 12:12 PM VOLUNTEER FIREFIGHTER OW[place] Leukocyte Esterase Negative Negative 12/20/2021 12:[address] [place] Protein Negative mg/dL 12/20/2021 12:12 PM VOLUNTEER FIREFIGHTER OWAT Comment: ----REFERENCE VALUE---- Negative Trace Glucose Negative Negative mg/dL 12/20/2021 12:12 PM VOLUNTEER FIREFIGHTER O FRANSICO Ketone Negative Negative mg/dL 12/20/2021 12:12 PM VOLUNTEER FIREFIGHTER O FRANSICO Bilirubin Negative Negative 12/20/2021 12:12 PM VOLUNTEER FIREFIGHTER OW[place] pH 6.0 5.0 - 8.0 12/20/2021 12:12 PM VOLUNTEER FIREFIGHTER [place] Specific Minto 1.005 1.001 - 1.035 12/20/2021 12:12 PM VOLUNTEER FIREFIGHTER OW[place] Urobilinogen 0.2 0.2 - 1.0 mg/dL 12/20/2021 12:[address] [place] Specimen Anatomical Collection Method Collection Time Receive d Time (Source) Location / / Volume Laterality Urine (Urine, 12/20/2021 11:26 12/20/2021 Clean Catch) AM VOLUNTEER FIREFIGHTER 12:06 PM VOLUNTEER FIREFIGHTER Cheikh Gautam M.D. LAB URINE ORDERABLES Performing Organization Address City/State/ZIP Code Phon e Number [facility]- [address] [place] [address] [place] [address] System in [place] [address] documented in this encounter Visit Diagnoses Diagnosis Encounter For Supervision Of Other Stella echols Unspecified Trimester (HCC) documented in this encounter Additional Health Concerns Assessment Noted Time PHQ-9 Depression Total Score: 4 12/20/2021 10:52 AM CS T documented as of this encounter Care Teams Sole Inker Relationship Specialty Start Date End Date Ben Arce M.D. PCP - General Family Medicine 01/13/[address] [place] [phone] documented as of this encounter
--- OUTSIDE RECORDS SUMMARY | 2022-05-31 19:37 | XMS_ITS | Encounter Summary ---
:1990 Author Organization [facility] Address [address] [place] [address] Care Team Providers Name Role Phone Ben Arce M.D. Primary Care Provider Reason for Referral Outpatient (Routine) - Closed Specialty Diagnoses / Procedures Referred By Contact Refer red To Contact Obstetrics and Diagnoses Examination Test With Positive Result (HCC) Terrence Swenson M.D. [facility] Gynecology [address] [phone] Referral ID Status Reason Start Date Expiration Date Visits Requ ested Visits Authorized [id number] Closed 12/01/2021 12/01/2022 1 1 URES EDITOR Specialty Diagnoses / Procedures Referred By Contact Refer red To Contact Terrence Swenson M.D. [facility] Region [address] [place] [phone] Referral ID Status Reason Start Date Expiration Date Visits Requ ested Visits Authorized URES EDITOR Encounter Details Date Type Department Care Team Description 12/01/2021 Clinical Communication Department of Terrence Swenson Obstetrics and Minoo Gynecology in [address] [place], [place] [address] [place] [phone] [place], [place] [phone] (Work) [phone] Social History Tobacco Use Types Packs/Day Years [...] do you attend druze or Never 2021 faith services? Do you belong to any clubs [...] at Date Recorded Female 12/02/2021 5:19 PM PICTURES EDITOR documented as of this encounter Miscellaneous Notes [...] following references were used: Nursing Clinical Judgement URES EDITOR Telephone Encounter - Anisa White - 12/01/2021 12:26 PM CST Reason for Communication: Patient calling, had a positive home test and a clinic confirmedtest. LMP unknown. Patient is looking to transfer care from [place] [facility] Can Nursing/Provider leave a detailed message?: yes Did the patient refuse triage through Nurse line? (for symptom based concerns): Action Needed: Name of Medication (if relevant): Please send all scheduling replies to scheduling pool. URES EDITOR documented in this encounter Plan of Treatment [...] US OB First Trimester (12/20/2021 10:50 AM PICTURES EDITOR) Anatomical Region Laterality Modality Body, Ultrasound OB RST LOS, Ultrasound ARZ LOS N/A Ultrasound Specimen (Source) Anatomical Collection Method Collection Time Re ceived Time Location / / Volume Laterality 12/20/2021 12:31 PM PICTURES EDITOR Impressions 12/20/2021 12:34 PM PICTURES EDITOR Single, viable, intrauterine gestation w ith CARLOS of August 14, 2022 (not consistent with menstrual dating). Narrative 12/20/2021 12:34 PM PICTURES EDITOR EXAM: US OB FIRST TRIMESTER COMPARISON: None Physician: Dr. Swenson FINDINGS: Gestational age and CARLOS by LMP or OB/EHR assignment: 7 w 3 d, CARLOS: 08/05/2022 INTRAUTERINE Pole: Normal, [place]-Rump Length: 0 .50 cm Gestational Sac: Normal [...] 3 d, CARLOS: 08/05/2022 INTRAUTERINE Pole: Normal, [place] Length: 0 .50 cm Gestational Sac: Normal [...] (HCC) documented in this encounter Care Teams Alfalfa Dehydrator Operator Relationship Specialty Start Date End Date Ben Arce M.D. PCP - General Family Medicine 01/13/[address] [place], [place] [phone] documented as of this encounter
--- OUTSIDE RECORDS SUMMARY | 2022-05-31 19:37 | XMS_ITS | Encounter Summary ---
:1990 Author Organization [facility] Address [address] [place] [address] Care Team Providers Name Role Phone Ben Arce M.D. Primary Care Provider Reason for Visit Reason Comments Hand Injury Encounter Details Date Type Department Care Team Description 02/11/2022 Emergency [place] [facility] Sigrid Forbes ontusion Hand Initial Department DMinoo Right (Primary Dx) [address] [place] [phone] (Wo rk) Social History Tobacco Use Types [...] or relatives? How often do you attend taoist or Never 2021 anabaptist services? Do you belong to any clubs or No 11/20/2021 organizations such as taoist groups, unions, fraternal or athletic groups, or [...] at Date Recorded Female 12/02/2021 5:19 PM RECORD CLERK documented as of this encounter Last Filed [...] clinic by calling the appointment center at [phone]. Thank you for choosing [facility] for your care. It was a pleasure taking care of you today in our Emergency Department. AttachmentsThe following attachments cannot be sent through Care Everywhere.Hand Contusion Wdbn-sr-Bgyg (Serbian)documented in this encounter Medications at Time of [...] Forbes M.D. - 02/11/2022 9:44 PM CDT [facility] [facility] EMERGENCY DEPARTMENT ENCOUNTER Patient Name: Lulu Mata PCP: Ben Arce M.D. SUBJECTIVE CHIEF COMPLAINT/REASON FOR VISIT Hand Injury HISTORY OF PRESENT ILLNESS Lulu Mata is a 31 y.o. female presenting with right hand pain. She was at the [facility] today when her hand was shut into [...] documented as of this encounter Care Teams Plate Glass Polisher Relationship Specialty Start Date End Date Ben Arce M.D. PCP - General Family Medicine 01/13/[address] [facility] [place] [phone] documented as of this encounter
--- OUTSIDE RECORDS SUMMARY | 2022-05-31 19:37 | XMS_ITS | Encounter Summary ---
:1990 Author Organization [facility] Address [address] [place] [address] Care Team Providers Name Role Phone Ben Arce M.D. Primary Care Provider Reason for Visit Reason Comments Med Refill Encounter Details Date Type Department Care Team Description 11/24/2021 Refill Department of Family Medicine Ben Maynard M.D. Med Refill in [facility] [address] [place] [phone] (Wo rk) Social History Tobacco Use Types [...] do you attend yarsani or Never 2021 hoahaoism services? Do you belong to any clubs [...] or slept in a mcc (including now)? Education Answer Date Recorded What is the highest level of school you have completed or 12 th grade 05/17/2021 the highest degree you have received? Sex Assigned at Date Recorded Female 12/02/2021 5:19 PM ICE PLANT OPERATOR documented as of this encounter Plan of Treatment Not on filedocumented as of this encounter Visit Diagnoses Not on filedocumented in this encounter Care Teams Lead Sharepoint Developer Relationship Specialty Start Date End Date Ben Arce M.D. PCP - General Family Medicine 01/13/[address] [place] [address] documented as of this encounter
--- OUTSIDE RECORDS SUMMARY | 2022-05-31 19:37 | XMS_ITS | Encounter Summary ---
:1990 Author Organization [facility] Address [address] [place] [address] Care Team Providers Name Role Phone Ben Arce M.D. Primary Care Provider Reason for Visit Reason Comments Vomiting Pt presents with nausea and vomiting that began last evening at 1700. Has persisted all night. Pt is 6 weeks . Encounter Details Date Type Department Care Team Description 12/09/2021 Emergency [place] Emergency Valerie Malone, Nause a And Vomiting (Primary Dx); Department M.D. Less Than 8 Weeks Gestation [address] [facility] [place] [phone] Social History Tobacco Use Types Packs/Day Years [...] or relatives? How often do you attend spiritism or Never 2021 restoration services? Do you belong to any clubs or No 11/20/2021 organizations such as spiritism groups, unions, fraternal or athletic groups, or [...] place to sleep or slept in a custodial (including now)? Education Answer Date Recorded What is the highest level of school you have completed or 12 th grade 05/17/2021 the highest degree you have received? Sex Assigned at Date Recorded Female 12/02/2021 5:19 PM WAREHOUSE SUPERVISOR documented as of this encounter Last Filed Vital Signs Vital Sign Reading Time Taken Comments Blood Pressure 126/87 12/09/2021 9:45 AM WAREHOUSE SUPERVISOR Pulse 95 12/09/2021 10:00 AM WAREHOUSE SUPERVISOR Temperature 37.2 ??C (99 ??F) 12/09/2021 10:00 AM WAREHOUSE SUPERVISOR Respiratory Rate 14 12/09/2021 8:29 AM WAREHOUSE SUPERVISOR Oxygen Saturation 99% 12/09/2021 10:00 AM WAREHOUSE SUPERVISOR Inhaled Oxygen Concentration - - Weight 68.3 kg (150 lb 9.2 oz) 12/09/2021 8:31 AM WAREHOUSE SUPERVISOR Height 155 cm (5' 1.02) 12/09/2021 8:31 AM WAREHOUSE SUPERVISOR Body Mass Index 28.43 12/09/2021 8:31 AM WAREHOUSE SUPERVISOR documented in this encounter Discharge Instructions Discharge InstructionsValerie Malone M.D. - 12/09/2021 9:29 AM CST If you are unable to keep yourself well hydrated at home, please feel free to return. HOUSE SUPERVISOR AttachmentsThe following attachments cannot be sent through Care Everywhere. Morning Sickness (Kiswahili)documented in this encounter Medications at Time of Discharge Medication Sig Dispensed Refills Start Date End Date acetaminophen (TYLENOL) Take 1,000 mg by 0 500 mg tablet mouth every 6 (six) hours as needed for pain. Take 1 tablet by 90 tablet 3 12/01/2021 vit27,calcium/iron/FA mouth daily. (multivitamin/mineral-pre ) tablet fluticasone propionate Administer 2 sprays 0 12/20/2021 [...] 12/2112/20/2021 68 mg subdermal implant route continuously. metroNIDAZOLE (FLAGYL) Take 1 tablet (500 14 [...] normal. ASSESSMENT/PLAN IMPRESSION AND PLAN Vomiting with wvqu-ly-guhrrxxb dehydration during . I gave normal saline 1 L IV, [id number] mg IV, Zofran 4 mg IV. She [...] 8 Weeks Gestation Valerie Malone M.D. 12/09/21934 HOUSE SUPERVISOR documented in this encounter Plan of Treatment [...] 1,000 mL New Bag 12/09/2021 8:48 AM WAREHOUSE SUPERVISOR 1,000 mL 1000 mL/hr 1,000 mL, intravenous, at 1,000 mL/hr, Administer over 1 Hours, Once, On Sun12/09/21 at 0836, For 1 dose ondansetron (PF) injection 4 mg (ZOFRAN) Given 12/09/2021 9:31 AM WAREHOUSE SUPERVISOR 4 mg 4 mg, intravenous, Once, On Sun12/09/21 at 0921, For 1 dose pyridoxine (vitamin B6) injection 100 mg Given 12/09/2021 9:00 AM WAREHOUSE SUPERVISOR 100 mg 100 mg, intravenous, Once, On Sun12/09/21 at 0836, For 1 dose sodium chloride 0.9 % injection 10 mL Given 12/09/2021 8:45 AM WAREHOUSE SUPERVISOR 10 mL 10 mL, intravenous, As needed, [...] Recently Administered Medications Times are shown in WAREHOUSE SUPERVISOR. Scheduled Medication Order 12/07/2021 12/08/2021 12/09/2021 NaCl [...] injection 10 mL 0845 (Given - Provider: Nita Rao R.N.) 10 mL, intravenous, As needed, [...] injection documented in this encounter Care Teams Biomass Plant Technician Relationship Specialty Start Date End Date Ben Arce M.D. PCP - General Family Medicine 01/13/[address] [place] [phone] documented as of this encounter
--- OUTSIDE RECORDS SUMMARY | 2022-05-31 19:37 | XMS_ITS | Encounter Summary ---
:1990 Author Organization [facility] Address [address] [place] [address] Care Team Providers Name Role Phone Ben Arce M.D. Primary Care Provider Encounter Details Date Type Department Care Team Description 03/31/2022 Hospital Encounter Department of Cheikh Gautam Laboratory Medicine Minoo Garcia ([facility]) in [place], [place] [address] [place] [phone] Social History Tobacco Use Types Packs/Day Years [...] or relatives? How often do you attend mormon or Never 2021 bahai services? Do you belong to any clubs or No 11/20/2021 organizations such as mormon groups, unions, fraternal or athletic groups, or [...] at Date Recorded Female 12/02/2021 5:19 PM CIRCULAR GANG SAW OPERATOR documented as of this encounter Medications [...] calcium)-3.125 mcg (125 breakfast. Unit) per tablet famotidine (PEPCID) 40 mg Take 1 tablet (40 30 tablet 3 08/2022 tablet mg total) by mouth 2 (two) times a day. Take 1 tablet by 90 tablet 3 12/01/2021 vit27,calcium/iron/FA mouth daily. (multivitamin/mineral-pren atal) tablet documented as of this encounter Plan of Treatment Not on filedocumented as of this encounter Procedures Procedure Name Priority Date/Time Associated Comments Diagnosis PROTEIN/CREATININE Routine 03/31/2022 5:34 High Risk Result s for this RATIO, RANDOM, URINE PM CDT ([facility]) proc edure are in the results section. [...] Organization Address City/[facility]/ZIP Code Phon e Number [place] [id number] [address] [place], [place] [address] [facility] [place] [address] ALT (Alanine Aminotransferase) (03/31/2022 5:31 [...] Organization Address City/[facility]/ZIP Code Phon e Number [place] [address] [address] [place], [place] [address] [facility] [place] [address] AST (Aspartate Aminotransferase) (03/31/2022 5:31 PM CDT) [facility] Method Time Signature Aspartate 13 8 - 43 03/31/2022 [facility] Aminotransferase U/L 5:59 PM CDT (AST), P Specimen Anatomical Collection Method Collection Time Receive d Time (Source) Location / / Volume Laterality Blood (Blood, 03/31/2022 5:31 PM 03/31/20 22 5:34 Venous) CDT PM CDT Cheikh Gautam M.D. LAB BLOOD ADD-ON Performing Organization Address City/[facility]/ZIP Code Phon e Number [address] [address] [facility] [place] [place] [address] (ABNORMAL) Creatinine with Estimated GFR (03/31/2022 5:31 PM CDT) P athologist Signature Creatinine, P 0.58 (L) 0.59 - 03/31/2022 [facility] 1.04 mg/dL 5:59 PM CDT eGFR-Black/Afr >90 >=60 03/31/2022 [facility] ican Trinidadian mL/min/BSA 5:59 PM CDT Comment: ----ADDITIONAL INFORMATION---- [...] Organization Address City/State/ZIP Code Phon e Number [facility]- [address] [place], [place] [address] [facility] [address] [facility] [address] [place] documented in this encounter Visit Diagnoses Diagnosis High Risk (HCC) documented in this encounter Additional Health Concerns Assessment Noted Time PHQ-9 Depression Total Score: 4 12/20/2021 10:52 AM CS T documented as of this encounter Care Teams Shrinker Relationship Specialty Start Date End Date Ben Arce M.D. PCP - General Family Medicine 01/13/[address] [place] [phone] documented as of this encounter
--- OUTSIDE RECORDS SUMMARY | 2022-05-31 19:37 | XMS_ITS | Encounter Summary ---
:1990 Author Organization [facility] Address [address] [place] [address] Care Team Providers Name Role Phone Ben Arce M.D. Primary Care Provider Encounter Details Date Type Department Care Team Description 03/27/2022 Ancillary Procedure Department of Cheikh Gautam For Obstetrics and Minoo Garcia Supervision O f Other Gynecology in Normal [place], [place] Unspecified [address] Trimester (HCC) [place] [address] Social History Tobacco Use Types [...] or relatives? How often do you attend hinduism or Never 2021 mormon services? Do you belong to any clubs or No 11/20/2021 organizations such as hinduism groups, unions, fraternal or athletic groups, or [...] at Date Recorded Female 12/02/2021 5:19 PM TUMOR REGISTRAR documented as of this encounter Plan of [...] documented as of this encounter Care Teams Government Affairs Researcher Relationship Specialty Start Date End Date Ben Arce M.D. PCP - General Family Medicine 01/13/21 [address] [place] [address] documented as of this encounter
--- OUTSIDE RECORDS SUMMARY | 2022-05-31 19:37 | XMS_ITS | Encounter Summary ---
:1990 Author Organization [facility] Address [address] [place] [address] Care Team Providers Name Role Phone Ben Arce M.D. Primary Care Provider Encounter Details Date Type Department Care Team Description 02/01/2022 Hospital Encounter Department of Terrence Swenson High Risk Laboratory Medicine MGonzalez in [address] [address] [place], [place] [phone] (Work) [phone] Social History Tobacco Use Types Packs/Day Years [...] do you attend druze or Never 2021 baptism services? Do you [...] place to sleep or slept in a long term (including now)? Education Answer Date Recorded What is the highest level of school you have completed or 12 th grade 05/17/2021 the highest degree you have received? 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 calcium carbonate-vitamin Take 1 tablet by 0 D3 625 mg (250 mg mouth daily with calcium)-3.125 mcg (125 breakfast. Unit) per tablet Take 1 tablet by 90 tablet 3 12/01/2021 vit27,calcium/iron/FA mouth daily. (multivitamin/mineral-pren atal) tablet amoxicillin-pot Take 1 tablet by 20 tablet 2 02/01/2022 clavulanate (AUGMENTIN) mouth every 12 875-125 mg per tablet (twelve) hours for 10 days. documented as of this encounter Plan of Treatment Not on filedocumented as of this encounter Procedures Procedure Name Priority Date/Time Associated Diagnosis Comme nts [id number] Routine 02/01/2022 9:52 AM High Risk Re sults for this PLUS-SENT OUT LAB CDT (HCC) procedure are in the results section. documented in this encounter Results [id number] Plus-Sent Out Lab (02/01/2022 9:52 AM CDT) [...] Organization Address City/State/ZIP Code Phon e Number [facility] [address] [place] [address] [employer] [facility] [place] [address] [employer] [address] documented in this encounter Visit Diagnoses Diagnosis High Risk (HCC) documented in this encounter Additional Health Concerns Assessment Noted Time PHQ-9 Depression Total Score: 4 12/20/2021 10:52 AM CS T documented as of this encounter Care Teams Wood Carver Hand Relationship Specialty Start Date End Date Ben Arce M.D. PCP - General Family Medicine 01/13/[address] [facility] [place] [address] documented as of this encounter
--- OUTSIDE RECORDS SUMMARY | 2022-05-31 19:37 | XMS_ITS | Encounter Summary ---
:1990 Author Organization [facility] Address [address] [place] [address] Care Team Providers Name Role Phone Ben Arce M.D. Primary Care Provider Encounter Details Date Type Department Care Team Description 12/20/2021 Orders Only Department of Obstetrics and Gau Terrence zamarripa M.D. Gynecology in [address] [address] [place] [address] [phone] Social History Tobacco Use Types Packs/Day Years [...] do you attend shinto or Never 2021 church services? Do you [...] Date Recorded Female 12/02/2021 5:19 PM MANAGER MOTOR documented as of this encounter Plan of Treatment Not on filedocumented as of this encounter Visit Diagnoses Not on filedocumented in this encounter Additional Health Concerns Assessment Noted Time PHQ-9 Depression Total Score: 4 12/20/2021 10:52 AM CS T documented as of this encounter Care Teams Senior C Web Developer Relationship Specialty Start Date End Date Ben Arce M.D. PCP - General Family Medicine 01/13/[address] [place] [phone] documented as of this encounter
--- OUTSIDE RECORDS SUMMARY | 2022-05-31 19:37 | XMS_ITS | Encounter Summary ---
:1990 Author Organization [facility] Address [address] [place] [address] Care Team Providers Name Role Phone Ben Arce M.D. Primary Care Provider Reason for Referral Outpatient (Routine) - Authorized Specialty Diagnoses / Procedures Referred By Contact Refer red To Contact Diagnoses Subdermal Implantable Contraceptive Removal Rylie Mcdowell M.D. [facility] Procedures Subdermal Contraceptive Device [facility] [place] [address] Referral ID Status Reason Start Date Expiration Date Visits V isits Requested Authorized [id number] Authorized 12/01/2021 12/01/2022 1 1 PATIONAL HEALTH AND SAFETY MANAGER Reason for Visit Reason Comments nexplanon removal Early . LMP 10/29/21. Pt will see Dr. Swenson in [place] with [facility] for . Appointment Request (Routine) - Closed Specialty Diagnoses / Procedures Referred By Contact Refer red To Contact Obstetrics and Gynecology Referral ID Status Reason Start Date Expiration Date Visits Requ ested Visits Authorized [id number] Closed 11/29/2021 11/29/2022 1 1 Encounter Details Date Type Department Care Team Description 12/01/2021 Office Visit Department of Rylie Mcdowell Subdermal Imp lancesar Obstetrics and Minoo Contraceptive Removal Gynecology in [address] (Primary Dx) [place], [place] [address] [facility] [address] [place], [place] [phone] (Work) [phone] Social History Tobacco Use Types Packs/Day Years [...] or relatives? How often do you attend methodist or Never 2021 church services? Do you belong to any clubs or No 11/20/2021 organizations such as methodist groups, unions, fraternal or athletic groups, or [...] at Date Recorded Female 12/02/2021 5:19 PM OCCUPATIONAL HEALTH AND SAFETY MANAGER documented as of this encounter Last Filed Vital Signs Vital Sign Reading Time Taken Comments Blood Pressure 155/91 12/01/2021 2:56 PM OCCUPATIONAL HEALTH AND SAFETY MANAGER Pulse 84 12/01/2021 2:56 PM OCCUPATIONAL HEALTH AND SAFETY MANAGER Temperature 36.2 ??C (97.2 ??F) 12/01/2021 2:56 PM OCCUPATIONAL HEALTH AND SAFETY MANAGER Respiratory Rate - - Oxygen Saturation - - Inhaled Oxygen Concentration - - Weight 69.5 kg (153 lb 4.8 oz) 12/01/2021 2:56 PM OCCUPATIONAL HEALTH AND SAFETY MANAGER Height - - Body Mass Index 28.94 11/08/2021 12:40 PM OCCUPATIONAL HEALTH AND SAFETY MANAGER documented in this encounter Progress Notes Rylie Mcdowell M.D. - 12/01/2021 3:15 PM CST SUBJECTIVE CHIEF COMPLAINT / REASON FOR VISIT Chief Complaint Patient presents with ??? nexplanon removal Early . LMP 10/29/21. Pt will see Dr. Swenson in [place] with [facility] for . HISTORY OF PRESENT CONDITION [...] and Family: Twice a week ??? Attends Latter Day Services: Never ??? Active Member of Clubs [...] levels - plan US once HCG above [id number] - Patient is following up at [facility] Diet and exercise, PNV and folate, smoking [...] are no discontinued medications. Rylie Mcdowell M.D. PATIONAL HEALTH AND SAFETY MANAGER documented in this encounter Procedure Notes Rylie [...] lidocaine POST-PROCEDURE DETAILS Complications: no apparent complications CLINICAL SPECIALIST PATIONAL HEALTH AND SAFETY MANAGER documented in this encounter Plan of Treatment Not on filedocumented as of this encounter Procedures Procedure Name Priority Date/Time Associated Diagnosis Comme nts [facility] DRUG IMPL Routine 12/01/2021 4:11 PM Subdermal Implant able Results for this OCCUPATIONAL HEALTH AND SAFETY MANAGER Contraceptive Removal proced ure are in the results section. documented in this encounter Results [facility] DRUG IMPL (12/01/2021 4:11 PM OCCUPATIONAL HEALTH AND SAFETY MANAGER) Narrative [facility] - 12/01/2021 4:11 PM OCCUPATIONAL HEALTH AND SAFETY MANAGER Rylie Mcdowell M.D. ? 12/01/2021 ??4:12 PM [...] documented in this encounter Care Teams Commercial Sales Consultant Relationship Specialty Start Date End Date Ben Arce M.D. PCP - General Family Medicine 01/13/[address] [place] [address] documented as of this encounter
--- OUTSIDE RECORDS SUMMARY | 2022-05-31 19:37 | XMS_ITS | Encounter Summary ---
:1990 Author Organization [facility] Address [address] [place] [address] Care Team Providers Name Role Phone Ben Arce M.D. Primary Care Provider Encounter Details Date Type Department Care Team Description 12/20/2021 Hospital Encounter Department of Cheikh Gautam Laboratory Medicine Minoo Garcia Supervis ion Of Other in [facility] Unspecified [address] [place] [address] Social History Tobacco Use Types Packs/Day Years [...] or relatives? How often do you attend latter day or Never 2021 baptism services? Do you belong to any clubs or No 11/20/2021 organizations such as latter day groups, unions, fraternal or athletic groups, or [...] at Date Recorded Female 12/02/2021 5:19 PM CAFETERIA OPERATOR documented as of this encounter Medications [...] Encounter For Results for this , S CAFETERIA OPERATOR Supervision Of Other procedu re are in Normal the results Unspecified section. Trimester HIV-1/-2 AG AND AB Routine 12/20/2021 11:34 AM Encounter For R esults for this SCRN, CAFETERIA OPERATOR Supervision Of Other proce dure are in PLASMA Normal the results Unspecified section. Trimester SYPHILIS TOTAL AB Routine 12/20/2021 11:34 AM Encounter For Re sults for this W/ REFLEX S CAFETERIA OPERATOR Supervision Of Other procedu re are in Normal the results Unspecified section. Trimester HBS ANTIGEN Routine 12/20/2021 11:34 AM Encounter For Results for this , S CAFETERIA OPERATOR Supervision Of Other procedu re are in Normal the results Unspecified section. Trimester ABORH, RBC Routine 12/20/2021 11:34 AM Encounter For Results for this CAFETERIA OPERATOR Supervision Of Other procedu re are in Normal the results Unspecified section. Trimester RUBELLA ANTIBODIES, Routine 12/20/2021 11:34 AM Encounter For Results for this IGG CAFETERIA OPERATOR Supervision Of Other procedu re are in Normal the results Unspecified section. Trimester CBC WITHOUT Routine 12/20/2021 11:34 AM Encounter For Results for this DIFFERENTIAL, B CAFETERIA OPERATOR Supervision Of Other proc edure are in Normal the results Unspecified section. Trimester ANTIBODY SCREEN, B Routine 12/20/2021 11:34 AM Encounter For R esults for this CAFETERIA OPERATOR Supervision Of Other procedu re are in Normal the results Unspecified section. Trimester documented in this encounter Results Hepatitis C Virus Antibody Screen (12/20/2021 11:34 AM CAFETERIA OPERATOR) P athologist Signature HCV Ab Scrn Negative Negative 12/21/2021 [facility] , S 8:10 AM CAFETERIA OPERATOR Comment: Xnbaxz-ba-gvglmi ratio is <1.00 . Specimen Anatomical Collection Method Collection Time Receive d Time (Source) Location / / Volume Laterality Blood (Blood, 12/20/2021 11:34 12/21/2021 6:40 Venous) AM CAFETERIA OPERATOR AM CAFETERIA OPERATOR Cheikh Gautam M.D. LAB MICROBIOLOGY - BLOOD ORD ERABLES Performing Organization Address City/[facility]/ZIP Code Phon e Number [facility] [address] [place] [address] [place] [address] [place] [address] Laboratory Medicine and Pathology [address] [place] Syphilis Total Ab w/ Reflex, Serum (12/20/2021 11:34 AM CAFETERIA OPERATOR) Patholo gist Method Time Signature Syphilis Nonreactive Nonreactive 12/21/2021 [facility] Total Ab w/ 11:40 AM CAFETERIA OPERATOR Reflex Comment: No serologic evidence of infection with T. pallidum (syphilis). ??Repeat testing may be cons idered in patients with suspected acute or primary syphilis in 2-4 weeks. For additional information on interpreta tion of the syphilis reverse algorithm and resul ts, see: [email or web address] df Specimen Anatomical Collection Method Collection Time Receive d Time (Source) Location / / Volume Laterality Blood (Blood, 12/20/2021 11:34 12/20/2021 6:27 Venous) AM CAFETERIA OPERATOR PM CAFETERIA OPERATOR Cheikh Gautam M.D. LAB BLOOD ADD-ON Performing Organization Address City/[facility] Phon e Number [phone] [place] [address] System [address] Rubella Antibodies, IgG (12/20/2021 11:34 AM CAFETERIA OPERATOR) P athologist Signature Rubella Ab, Positive 12/21/2021 [facility] IgG, S 11:40 AM CAFETERIA OPERATOR Comment: Results suggest response to immunization or prior exposure to the virus. ----REFERENCE VALUE---- Vaccinated: Positive (>=1.0 AI) Unvaccinated: Negative (<=0.7 AI) Rubella IgG Antibody Index 2.6 12/21/2021 11 :40 AM CAFETERIA OPERATOR [facility] Specimen Anatomical Collection Method Collection Time Receive d Time (Source) Location / / Volume Laterality Blood (Blood, 12/20/2021 11:34 12/20/2021 6:27 Venous) AM CAFETERIA OPERATOR PM CAFETERIA OPERATOR Cheikh Gautam M.D. LAB MICROBIOLOGY - BLOOD ORD ERABLES Performing Organization Address City/State/ZIP Code Phon e Number [facility]- [address] [place] [address] [phone] [place] [address] HIV-1/-2 Ag and Ab Scrn, Plasma (12/20/2021 11:34 AM CAFETERIA OPERATOR) P athologist Signature HIV Ag/Ab Negative Negative 12/21/2021 [facility] Scrn, 11:40 AM CAFETERIA OPERATOR P Comment: Negative result does not rule out HIV in fection. If exposure to HIV infection occurred <14 d ays ago, contact the laboratory to request additi on of HIV-1 RNA detection / quantification test. HIV-1 p24 Ag Scrn, P Negative Negative 12/21/2021 11:40 AM CAFETERIA OPERATOR [facility] Comment: Negative result does not rule out HIV in fection. If exposure to HIV infection occurred <14 d ays ago, contact the laboratory to request additi on of HIV-1 RNA detection / quantification test. HIV-1 Ab Scrn, P Negative Negative 12/21/2021 11: 40 AM CAFETERIA OPERATOR [facility] Comment: Negative result does not rule out HIV in fection. If exposure to HIV infection occurred <14 d ays ago, contact the laboratory to request additi on of HIV-1 RNA detection / quantification test. HIV-2 Ab Scrn, P Negative Negative 12/21/2021 11: 40 AM CAFETERIA OPERATOR [facility] Comment: Negative result does not rule out HIV in fection. If exposure to HIV infection occurred <14 d ays ago, contact the laboratory to request additi on of HIV-1 RNA detection / quantification test. Specimen Anatomical Collection Method Collection Time Receive d Time (Source) Location / / Volume Laterality Blood (Blood, 12/20/2021 11:34 12/20/2021 6:27 Venous) AM CAFETERIA OPERATOR PM CAFETERIA OPERATOR Cheikh Gautam M.D. LAB MICROBIOLOGY - BLOOD ORD ERABLES Performing Organization Address City/State/ZIP Code Phon e Number [facility]- [address] [place] [address] [phone] [facility] [place] [address] System [address] HBs Antigen , Serum (12/20/2021 11:34 AM CAFETERIA OPERATOR) [facility] Method Time Signature HBs Antigen Non reactive Non reactive 12/20/2021 [facility] , S 4:50 PM CAFETERIA OPERATOR Specimen Anatomical Collection Method Collection Time Receive d Time (Source) Location / / Volume Laterality Blood (Blood, 12/20/2021 11:34 12/20/2021 3:49 Venous) AM CAFETERIA OPERATOR PM CAFETERIA OPERATOR Cheikh Gautam M.D. LAB MICROBIOLOGY - BLOOD ORD ERABLES Performing Organization Address City/State/ZIP Code Phon e Number [facility]- [address] [place] [address] [facility] [place] [address] [facility] [address] (ABNORMAL) CBC without Differential (12/20/2021 11:34 AM CAFETERIA OPERATOR) [facility] Method Time Signature Hemoglobin 14.1 11.6 - 12/20/2021 [facility] 15.0 g/dL 11:44 AM CAFETERIA OPERATOR Hematocrit 41.0 35.5 - 12/20/2021 [facility] 44.9 % 11:44 AM CAFETERIA OPERATOR Erythrocytes 4.91 3.92 - 12/20/2021 [facility] 5.13 11:44 AM CAFETERIA OPERATOR x10(12)/L MCV 83.5 78.2 - 12/20/2021 [facility] 97.9 fL 11:44 AM CAFETERIA OPERATOR RBC Distrib Width 11.7 (L) 12.2 - 12/20/2021 [place] 16.1 % 11:44 AM CAFETERIA OPERATOR Platelet Count 360 157 - 371 12/20/2021 [facility] x10(9)/L 11:44 AM CAFETERIA OPERATOR Leukocytes 11.1 (H) 3.4 - 9.6 12/20/2021 [facility] x10(9)/L 11:44 AM CAFETERIA OPERATOR Specimen Anatomical Collection Method Collection Time Receive d Time (Source) Location / / Volume Laterality Blood (Blood, 12/20/2021 11:34 12/20/2021 Venous) AM CAFETERIA OPERATOR 11:40 AM CAFETERIA OPERATOR Cheikh M Dain M.D. LAB BLOOD ADD-ON Performing Organization Address City/[facility]/ZIP Code Phon e Number [facility]- [address] [place] [address] [facility] [place] [address] System in [place] [address] Antibody Screen, RBC (with reflex Antibody ID) (12/20/2021 11:34 AM CAFETERIA OPERATOR) P athologist Signature Antibody Screen NEG 12/20/2021 [facility] 5:16 PM CAFETERIA OPERATOR Specimen Anatomical Collection Method Collection Time Receive d Time (Source) Location / / Volume Laterality Blood (Blood, 12/20/2021 11:34 12/20/2021 3:49 Venous) AM CAFETERIA OPERATOR PM CAFETERIA OPERATOR Cheikh Gautam M.D. LAB BLOOD BANK TEST ORDERABL ES Performing Organization Address City/[facility]/ZIP [facility] Phon e Number [facility]- [address] [place] [address] [facility] [place], [place] [address] [place] [address] [address] [facility] ABORh, RBC (12/20/2021 11:34 AM CAFETERIA OPERATOR) P athologist Signature ABO Group O 12/20/2021 5:16 A[place] PM CAFETERIA OPERATOR Rh Type POS 12/20/2021 5:16 [place] PM CAFETERIA OPERATOR Specimen Anatomical Collection Method Collection Time Receive d Time (Source) Location / / Volume Laterality Blood (Blood, 12/20/2021 11:34 12/20/2021 3:51 Venous) AM CAFETERIA OPERATOR PM CAFETERIA OPERATOR Cheikh Gautam M.D. LAB BLOOD BANK TEST ORDERABL ES Performing Organization Address City/[facility]/ZIP [facility] [place] e Number [facility]- [address] [place] [address] [facility] [place], [place] [address] [place] [address] [address] [facility] documented in this encounter Visit Diagnoses Diagnosis Encounter For Supervision Of Other Stella l Unspecified Trimester (HCC) documented in this encounter Additional Health Concerns Assessment Noted Time PHQ-9 Depression Total Score: 4 12/20/2021 10:52 AM CS T documented as of this encounter Care Teams Land Commissioner Relationship Specialty Start Date End Date Ben Arce M.D. PCP - General Family Medicine 01/13/[address] [place] [address] documented as of this encounter
--- OUTSIDE RECORDS SUMMARY | 2022-05-31 19:37 | XMS_ITS | Encounter Summary ---
:1990 Author Organization [facility] Address [address] [place] [address] Care Team Providers Name Role Phone Ben Arce M.D. Primary Care Provider Encounter Details Date Type Department Care Team Description 11/28/2021 Hospital Encounter Department of Erika Jonse Laboratory Laboratory Medicine CJ HammerN, Results in [place], C.N.PMaribell, M.S.N. [place] [address] [place] [address] [phone] Social History Tobacco Use Types Packs/Day Years [...] do you attend hindu or Never 2021 pentecostal services? Do you [...] at Date Recorded Female 12/02/2021 5:19 PM COMMERCIAL ENERGY RATER documented as of this encounter Medications at [...] Abnormal Laboratory Results for this GONADOTROPIN (HCG), COMMERCIAL ENERGY RATER Results procedur e are in ROBERTA, the results section. documented in this encounter Results (ABNORMAL) hCG (Human Chorionic Gonadotropin), Quantitative, (11/28/2021 4:00 PM COMMERCIAL ENERGY RATER) P athologist Signature HCG, 94 (H) <5 IU/L 11/28/2021 [facility] Quantitative, 7:47 PM COMMERCIAL ENERGY RATER , P Comment: Biotin has been identified [...] (Blood, 11/28/2021 4:00 PM 11/28/19 6:56 Venous) COMMERCIAL ENERGY RATER PM COMMERCIAL ENERGY RATER Erika Jones APRN, C.N.P., M.S.N. LAB BLOOD ADD-ON Performing Organization Address City/State/ZIP Code Phon e Number [facility]- [address] [place], [place] [address] [place] [address] [place] [address] [address] [facility] documented in this encounter Visit Diagnoses Diagnosis Abnormal Laboratory Results documented in this encounter Care Teams Upper Leather Cutter Relationship Specialty Start Date End Date Ben Arce M.D. PCP - General Family Medicine 01/13/[address] [place] [phone] documented as of this encounter
--- OUTSIDE RECORDS SUMMARY | 2022-05-31 19:37 | XMS_ITS | Encounter Summary ---
:1990 Author Organization [facility] Address [address] [place] [address] Care Team Providers Name Role Phone Ben Arce M.D. Primary Care Provider Encounter Details Date Type Department Care Team Description 12/20/2021 Silent Schedule Department of Terrence Swenson, Pregnanc y Examination Obstetrics and M.D. Test With Positive Gynecology in [address] [place], [place] [address] [address] [place], [place] [phone] [address] (Work) [phone] Social History Tobacco Use Types Packs/Day Years [...] or relatives? How often do you attend holiness or Never 2021 restoration services? Do you belong to any clubs or No 11/20/2021 organizations such as holiness groups, unions, fraternal or athletic groups, or [...] at Date Recorded Female 12/02/2021 5:19 PM LPN CARE MANAGER documented as of this encounter Plan of Treatment Not on filedocumented as of this encounter Procedures Procedure Name Priority Date/Time Associated Comments Diagnosis US OB FIRST RAD - Routine 12/20/2021 10:50 Results fo r this TRIMESTER (most inpatients AM LPN CARE MANAGER Examination Test procedu re are in and all With Positive the results outpatients) Result section. documented in this encounter Results US OB First Trimester (12/20/2021 10:50 AM LPN CARE MANAGER) Anatomical Region Laterality Modality Body, Ultrasound OB RST LOS, Ultrasound ARZ LOS N/A Ultrasound Specimen (Source) Anatomical Collection Method Collection Time Re ceived Time Location / / Volume Laterality 12/20/2021 12:31 PM LPN CARE MANAGER Impressions 12/20/2021 12:34 PM LPN CARE MANAGER Single, viable, intrauterine gestation w ith CARLOS of August 14, 2022 (not consistent with menstrual dating). Narrative 12/20/2021 12:34 PM LPN CARE MANAGER EXAM: US OB FIRST TRIMESTER COMPARISON: None Physician: Dr. Swenson FINDINGS: Gestational age and CARLOS by LMP or OB/EHR assignment: 7 w 3 d, CARLOS: 08/05/2022 INTRAUTERINE Pole: Normal, Show Low-Rump Length: 0 .50 cm Gestational Sac: Normal [...] 3 d, CARLOS: 08/05/2022 INTRAUTERINE Pole: Normal, Show Low-Rump Length: 0 .50 cm Gestational Sac: Normal [...] documented as of this encounter Care Teams Psychiatric Therapist Relationship Specialty Start Date End Date Ben Arce M.D. PCP - General Family Medicine 01/13/21 [address] [place] [address] documented as of this encounter
--- OUTSIDE RECORDS SUMMARY | 2022-05-31 19:37 | XMS_ITS | Encounter Summary ---
:1990 Author Organization [facility] Address [address] [place] [address] Care Team Providers Name Role Phone Ben [...] Expiration Date Visits Requ ested Visits Authorized [id number] 1 1 Encounter Details Date Type Department Care Team Description 04/17/2022 Hospital Encounter [facility] Rylie Mcdowell, 23 Weeks Gestation [facility], [place] [id number] [address] [place], [place] [phone] [address] (Work) [phone] Social History Tobacco Use Types Packs/Day Years [...] or relatives? How often do you attend lutheran or Never 2021 sabianism services? Do you belong to any clubs or No 11/20/2021 organizations such as lutheran groups, unions, fraternal or athletic groups, or [...] at Date Recorded Female 12/02/2021 5:19 PM PAY STATION DEPARTMENT MANAGER documented as of this encounter Last [...] Category I tracing. No UTC's traced via [place]. RN palpated during one episode ofuterine cramping, [...] documented as of this encounter Care Teams Statistical Methods Professor Relationship Specialty Start Date End Date Ben Arce M.D. PCP - General Family Medicine 01/13/[address] [place] [address] documented as of this encounter
--- OUTSIDE RECORDS SUMMARY | 2022-05-31 19:37 | XMS_ITS | Encounter Summary ---
:1990 Author Organization [facility] Address [address] [place] [address] Care Team Providers Name Role Phone Ben Arce M.D. Primary Care Provider Encounter Details Date Type Department Care Team Description 02/28/2022 Orders Only Department of Obstetrics and Gau Terrence zamarripa M.D. Gynecology in [address] [address] [place] [address] [phone] Social History Tobacco Use Types Packs/Day Years [...] or relatives? How often do you attend restoration or Never 2021 adventist services? Do you belong to any clubs or No 11/20/2021 organizations such as restoration groups, unions, fraternal or athletic groups, or [...] at Date Recorded Female 12/02/2021 5:19 PM GLOBAL LOGISTICS ANALYST documented as of this encounter Plan of Treatment Not on filedocumented as of this encounter Visit Diagnoses Not on filedocumented in this encounter Additional Health Concerns Assessment Noted Time PHQ-9 Depression Total Score: 4 12/20/2021 10:52 AM CS T documented as of this encounter Care Teams Bar Hostess Relationship Specialty Start Date End Date Ben Arce M.D. PCP - General Family Medicine 01/13/[address] [place] [phone] documented as of this encounter
--- OUTSIDE RECORDS SUMMARY | 2022-05-31 19:37 | XMS_ITS | Encounter Summary ---
:1990 Author Organization [facility] Address [address] [place] [address] Care Team Providers Name Role Phone Ben Arce M.D. Primary Care Provider Reason for Visit Reason Comments Sinusitis Sinus pressure / sinus drain age/ sinus congestion x 6 weeks Encounter Details Date Type Department Care Team Description 11/08/2021 [facility] [place], in [facility], C[facility] [address] [facility] [address] [place] [phone] Social History Tobacco Use Types Packs/Day Years [...] do you attend presybeterian or Never 2021 buddhism services? Do you [...] at Date Recorded Female 12/02/2021 5:[address] TRAFFIC CONTROL TECHNICIAN documented as of this encounter Last Filed Vital Signs Vital Sign Reading Time Taken Comments Blood Pressure 126/78 11/08/2021 12:[address] TRAFFIC CONTROL TECHNICIAN Pulse 78 11/08/2021 12:[address] TRAFFIC CONTROL TECHNICIAN Temperature 37 ??C (98.6 ??F) 11/08/2021 12:[address] TRAFFIC CONTROL TECHNICIAN Respiratory Rate 16 11/08/2021 12:[address] TRAFFIC CONTROL TECHNICIAN Oxygen Saturation 98% 11/08/2021 12:[address] TRAFFIC CONTROL TECHNICIAN Inhaled Oxygen Concentration - - Weight 72.1 kg (158 lb 14.4 oz) 11/08/2021 12:[address] TRAFFIC CONTROL TECHNICIAN Height 155 cm (5' 1.02) 11/08/2021 12:[address] TRAFFIC CONTROL TECHNICIAN Body Mass Index 30 11/08/2021 12:[address] TRAFFIC CONTROL TECHNICIAN documented in this encounter Patient Instructions Patient InstructionsArely Ferrell APRN, C.N.P. - 11/08/2021 12:[address] TRAFFIC CONTROL TECHNICIAN Steam, frequent showers to break up mucus in back of throat. Follow up if not gradually improving over the next 7-10 days or sooner if symptoms would worsen. WAY TRAFFIC CONTROL TECHNICIAN AttachmentsThe following attachments cannot be sent through Care Everywhere. Sinusitis (Rhinosinusitis) (Spanish)documented in this encounter Progress Notes Arely Ferrell [...] in total care of the patient today. WAY TRAFFIC CONTROL TECHNICIAN documented in this encounter Plan of Treatment Not on filedocumented as of this encounter Visit Diagnoses Diagnosis Sinusitis - Primary documented in this encounter Care Teams Shop Hand Relationship Specialty Start Date End Date Ben Arce M.D. PCP - General Family Medicine 01/13/[address] [place] [address] documented as of this encounter
--- OUTSIDE RECORDS SUMMARY | 2022-05-31 19:37 | XMS_ITS | Encounter Summary ---
:1990 Author Organization [facility] Address [address] [place] [address] Care Team Providers Name Role Phone Ben Arce M.D. Primary Care Provider Reason for Referral Outpatient (Routine) - Authorized Specialty Diagnoses / Procedures Referred By Contact Refer red To Contact Diagnoses Pain Back Pain Neck Ben Arce M.D. External, Referring [address] [place] [address] Referral ID Status Reason Start Expiration Visits Visits Date Date Requested Authorized [id number] Authorized Patient 03/01/2022 03/01/2023 1 1 Preference Reason for Visit Reason Comments Outside Order Insurance Referral Encounter Details Date Type Department Care Team Description 03/01/2022 Clinical Communication Department of Ben Arce, Outs [facility] [place] Order Family Medicine in [place] (Insurance Referral) [place] [address] [place] [address] [facility] [address] [phone] Social History Tobacco Use Types Packs/Day Years [...] you attend latter day or Never 2021 orthodoxy services? Do you belong to any clubs or No 11/20/2021 organizations such as latter day groups, unions, fraAscade or athletic groups, or school groups? How [...] at Date Recorded Female 12/02/2021 5:19 PM OYSTERMAN documented as of this encounter Miscellaneous Notes Telephone Encounter - Jossie Ramos - 03/06/2022 8:41 AM CDT [place] restricted referral faxed 03/02/22 with office visit notes. Also faxed [place] restricted forms for OB care [facility]. Thank you, Jossie Referrals 03/02/22 Lore called from [place] [phone]. This referral has been processed. 03/03/22sla. Telephone Encounter - Ben Arce M.D. - 03/01/2022 3:07 PM CDT Order signed. Telephone Encounter - Jossie Ramos - 03/01/2022 2:[address] Arce, ORDER/LAB/REFERRAL REQUEST: Name of test/referral/order requested: [facility] [place] i [id number] Reason for request: Back and neck pain Date needed: 02/26/22 Order pended to this encounter, once signed we can submit the Restricted [facility] referral for insurance. Thank you, Jossie Referrals 03/01/22 documented in this encounter Plan of Treatment Not on filedocumented as of this encounter Visit Diagnoses Diagnosis Pain Back - Primary Pain Neck documented in this encounter Additional Health Concerns Assessment Noted Time PHQ-9 Depression Total Score: 4 12/20/2021 10:52 AM CS T documented as of this encounter Care Teams Pulley Mortiser Operator Relationship Specialty Start Date End Date Ben Arce M.D. PCP - General Family Medicine 01/13/[address] [place] [address] documented as of this encounter
--- OUTSIDE RECORDS SUMMARY | 2022-05-31 19:37 | XMS_ITS | Encounter Summary ---
:1990 Author Organization [facility] Address [address] [place] [address] Care Team Providers Name Role Phone Ben Arce M.D. Primary Care Provider Reason for Visit Reason Comments Hand Injury Medical Information Encounter Details Date Type Department Care Team Description 02/11/2022 Nurse Triage Department of [facility] Rylie Hightower Hand Injury; Medical Medicine in [place], [place] [address] [facility] [address] [place] [address] [phone] Social History Tobacco Use Types Packs/Day Years [...] do you attend holiness or Never 2021 caodaism services? Do you [...] at Date Recorded Female 12/02/2021 5:19 PM ELECTROLYTIC DE SCALER documented as of this encounter Miscellaneous Notes [...] or deformed) Protocols used: HAND AND WRIST [id number] documented in this encounter Plan of Treatment Not on filedocumented as of this encounter Visit Diagnoses Not on filedocumented in this encounter Additional Health Concerns Assessment Noted Time PHQ-9 Depression Total Score: 4 12/20/2021 10:52 AM CS T documented as of this encounter Care Teams Pallet Repairer Relationship Specialty Start Date End Date Ben Arce M.D. PCP - General Family Medicine 01/13/[address] [place] [address] documented as of this encounter
--- OUTSIDE RECORDS SUMMARY | 2022-05-31 19:38 | XMS_ITS | Encounter Summary ---
:1990 Author Organization [facility] Address [address] [place] [address] Care Team Providers Name Role Phone Elsewhere, Pcp Primary Care Provider Unavailable Reason for Referral Outpatient (Routine) - Closed Specialty Diagnoses / Procedures Referred By Contact Refer red To Contact Family Medicine Donya Lind APRN, [facility] C.N.P., D.N.P. Referral ID Status Reason Start Date Expiration Date Visits Requ ested Visits Authorized [id number] Closed 01/07/2021 01/07/2022 1 1 Reason for Visit Reason Comments Follow-up Follow up Elbow Encounter Details Date Type Department Care Team Description 01/07/2021 Office Visit Department of Donya Fitzgerald Pain Elbow Left (Primary Dx); Medicine in [facility] FATOU Lu C.N.PMaribell, Rhinitis Allergic [place], [place] D.N.P. [address] [place] [address] Social History Tobacco Use Types Packs/Day Years [...] at Date Recorded Female 12/02/2021 5:19 PM DIRECTOR OF PERSONNEL documented as of this encounter Last Filed [...] Body Mass Index 31.21 12/14/2020 5:24 PM DIRECTOR OF PERSONNEL documented in this encounter Progress Notes Donya [...] meds for pain management. She works at [employer] and has continued to wear sling at [...] plan of care as outlined. Donya Lind, CRYPTOLOGIST, DNP documented in this encounter Plan of Treatment Scheduled Referrals Name Type Priority Associated Diagnoses Order S [facility] Family Medicine Outpatient Referral Routine Expec taurus: office visit 02/07/2021 (clinic) (Approximate), Expires: 01/08/2024 documented as of this encounter Visit Diagnoses Diagnosis Pain Elbow Left - Primary Rhinitis Allergic documented in this encounter Care Teams Batch Maker Relationship Specialty Start Date End Date Elsewhere, Pcp PCP - General Family Medicine 01/08/18 01/12/21 documented as of this encounter
--- OUTSIDE RECORDS SUMMARY | 2022-05-31 19:38 | XMS_ITS | Encounter Summary ---
:1990 Author Organization [facility] Address [address] [place] [address] Care Team Providers Name Role Phone Ben Arce M.D. Primary Care Provider Encounter Details Date Type Department Care Team Description 01/21/2021 Orders Only [facility] PCP TH Teja Zuniga Jr., M.D. [address] [place] [address] [place] [phone] (Wo rk) Social History Tobacco [...] or relatives? How often do you attend anglican or Never 2021 bahai services? Do you belong to any clubs or No 11/20/2021 organizations such as anglican groups, unions, fraternal or athletic groups, or [...] or slept in a custodial (including now)? Sex Assigned at Date Recorded Female 12/02/2021 5:19 PM TEST ADMINISTRATOR documented as of this encounter Plan of Treatment Not on filedocumented as of this encounter Visit Diagnoses Not on filedocumented in this encounter Care Teams Clerical Assigner Relationship Specialty Start Date End Date Ben Arce M.D. PCP - General Family Medicine 01/13/[address] [place] [address] documented as of this encounter
--- OUTSIDE RECORDS SUMMARY | 2022-05-31 19:38 | XMS_ITS | Encounter Summary ---
:1990 Author Organization [facility] Address [address] [place] [address] Care Team Providers Name Role Phone Elsewhere, Pcp Primary Care Provider Unavailable Reason for Visit Reason Comments Sinus Symptoms ongoing Encounter Details Date Type Department Care Team Description 07/02/2020 Office Visit Urgent Care, [facility], Sin usitis Acute [place], in [place], FATOU, C.N.P., (Samina pendleton Dx) [place] D.N.P. [address] [place] [address] [phone] Social History Tobacco Use Types Packs/Day Years [...] or relatives? How often do you attend faith or Never 2021 anglican services? Do you belong to any clubs or No 11/20/2021 organizations such as faith groups, unions, fraternal or athletic groups, or [...] at Date Recorded Female 12/02/2021 5:19 PM SELLING MANAGER documented as of this encounter Last [...] bacteria. Still, most people seen in the [facility] for upper respiratory infectionor sinusitis symptoms [...] and replace them as recommended by the regional education coordinator. Note: Having your humidity too high (more [...] help open sinuses and allow easier breathing. Xpum-kdo-nvzxjwy treatments* In addition to the previous suggestions, you may get relief for nasal and sinus obstruction or discomfort by taking non-prescription, pvsa-umf-adlrzdu (OTC) medications. Many OTC medications combine a [...] with your health care provider. ? 2008 [facility] ([employer]). All rights reserved. [id number] documented in this encounter Progress Notes Esther [...] has been using Flonase nasal spray and innn-qnd-uwaeuue decongestant and Tylenol or ibuprofen for symptoms. [...] a humidifier in the room. May use mklk-tys-njazbfv Flonase to help with congestion. Drink warm [...] Primary documented in this encounter Care Teams Compliance Reviewer Relationship Specialty Start Date End Date Elsewhere, Pcp PCP - General Family Medicine 01/08/18 01/12/21 documented as of this encounter
--- OUTSIDE RECORDS SUMMARY | 2022-05-31 19:38 | XMS_ITS | Encounter Summary ---
:1990 Author Organization [facility] Address [address] [place] [address] Care Team Providers Name Role Phone Ben Arce M.D. Primary Care Provider Encounter Details Date Type Department Care Team Description 05/18/2021 Hospital Encounter Department of Alexander Rendon, Pain Hand Right Radiology, [facility], in [place] [address] [place], [place] [address] [place] [address] [place], [place] [phone] (Work) [phone] Social History Tobacco Use Types Packs/Day Years [...] do you attend anglican or Never 2021 latter-day services? Do you [...] at Date Recorded Female 12/02/2021 5:19 PM INTERNET MARKETING SPECIALIST documented as of this encounter Medications at [...] Right documented in this encounter Care Teams Missile Mechanic Relationship Specialty Start Date End Date Ben Arce M.D. PCP - General Family Medicine 01/13/[address] [place] [address] documented as of this encounter
--- OUTSIDE RECORDS SUMMARY | 2022-05-31 19:38 | XMS_ITS | Encounter Summary ---
:1990 Author Organization [facility] Address [address] [place] [address] Care Team Providers Name Role Phone Elsewhere, Pcp Primary Care Provider Unavailable Reason for Referral MRI/CAT/PET Scan (Routine) - Closed Specialty Diagnoses / Procedures Referred By Contact Refer red To Contact Radiology Diagnoses Pain Cervical Esther Andrea APRN, [facility] Region Procedures CT Thoracic Spine without IV Contrast C.N.P., D.N.P. [address] [place] [address] Referral ID Status Reason Start Date Expiration Date Visits Requ ested Visits Authorized [id number] Closed 08/01/2019 07/31/2020 1 1 Reason for Visit MRI/CAT/PET Scan (Routine) - Closed Specialty Diagnoses / Procedures Referred By Contact Refer red To Contact Radiology Diagnoses Pain Cervical Emre, FATOU Santana, [facility] Procedures CT Thoracic Spine without IV Contrast C.N.P., D.N.P. [address] [place] [address] Referral ID Status Reason Start Date Expiration Date Visits Requ ested Visits Authorized [id number] Closed 08/01/2019 07/31/2020 1 1 Encounter Details Date Type Department Care Team Description 08/01/2019 Hospital Encounter Department of Radiology Eliazar Andrea, Pain Cervical [place] APRN C.N.P., [address] [facility] D.N.P. [place], [place] [address] [place] [address] [place], [place] [phone] [phone] Social History Tobacco Use Types Packs/Day [...] do you attend sikhism or Never 2021 hinduism services? Do you belong to any clubs [...] at Date Recorded Female 12/02/2021 5:19 PM MALTED MILK MIXER documented as of this encounter Medications [...] Cervical documented in this encounter Care Teams Audio Recording Engineer Relationship Specialty Start Date End Date Elsewhere, Pcp PCP - General Family Medicine 01/08/18 01/12/21 documented as of this encounter
--- OUTSIDE RECORDS SUMMARY | 2022-05-31 19:38 | XMS_ITS | Encounter Summary ---
:1990 Author Organization [facility] Address [address] [place] [address] Care Team Providers Name Role Phone Ben Arce M.D. Primary Care Provider Reason for Visit Reason Comments Communication New script Encounter Details Date Type Department Care Team Description 10/06/2021 Clinical Communication Department of Ben Arce Comm unication (New Family Medicine in M.DMaribell script) [place] [address] [facility] [address] [facility] [phone] [phone] Social History Tobacco Use Types Packs/Day Years [...] do you attend religion or Never 2021 lutheran services? Do you belong to any clubs [...] at Date Recorded Female 12/02/2021 5:19 PM FAMILY RESOURCE MANAGEMENT SPECIALIST documented as of this encounter Miscellaneous Notes Telephone Encounter - Babita Ramachandran R.N. - 10/06/2021 3:58 PM FAMILY RESOURCE MANAGEMENT SPECIALIST Portal message sent to patient that if she is on restricted plan she needs to contact her insurance for an exception. LY RESOURCE MANAGEMENT SPECIALIST Telephone Encounter - Alana Perkins L.P.N. - 10/06/2021 3:02 PM FAMILY RESOURCE MANAGEMENT SPECIALIST Spoke to pt and informed her that we would need to know which medication for eye drops was ordered so that Dr Arce could send it in. Pt states she has no idea what it is. Informed pt to find out which medication it is and call us back with that info. LY RESOURCE MANAGEMENT SPECIALIST Telephone Encounter - Migdalia Pompa - 10/06/2021 [...] Please call patient with plan. Thank you. LY RESOURCE MANAGEMENT SPECIALIST documented in this encounter Plan of Treatment Not on filedocumented as of this encounter Visit Diagnoses Not on filedocumented in this encounter Care Teams Food Service Team Member Relationship Specialty Start Date End Date Ben Arce M.D. PCP - General Family Medicine 01/13/[address] [place] [phone] documented as of this encounter
--- OUTSIDE RECORDS SUMMARY | 2022-05-31 19:38 | XMS_ITS | Encounter Summary ---
:1990 Author Organization [facility] Address [address] [place] [address] Care Team Providers Name Role Phone Elsewhere, Pcp Primary Care Provider Unavailable Reason for Visit Reason Comments Vomiting Pt presents w/nausea, vomiti ng and diarrhea onset 2300 yesterday. Encounter Details Date Type Department Care Team Description 11/11/2019 Emergency [place] [facility] Sigrid Forbes ausea And Vomiting (Primary Dx); Department D, M.D. Diarrhea [address] [place] [phone] (Wo rk) Social History Tobacco Use Types [...] do you attend yazdanism or Never 2021 cheondoism services? Do you belong to any clubs [...] or slept in a residential (including now)? Sex Assigned at Date Recorded Female 12/02/2021 5:19 PM PLUGGER documented as of this encounter Last Filed Vital Signs Vital Sign Reading Time Taken Comments Blood Pressure 112/79 11/11/2019 7:01 AM PLUGGER Pulse 81 11/11/2019 7:01 AM PLUGGER Temperature 36.4 ??C (97.5 ??F) 11/11/2019 7:01 AM PLUGGER Respiratory Rate 16 11/11/2019 7:01 AM PLUGGER Oxygen Saturation 93% 11/11/2019 7:01 AM PLUGGER Inhaled Oxygen Concentration - - Weight 71.8 kg (158 lb 4.6 oz) 11/11/2019 5:50 AM PLUGGER Height 152.4 cm (5') 11/11/2019 5:50 AM PLUGGER Body Mass Index 30.91 11/11/2019 5:50 AM PLUGGER documented in this encounter Discharge Instructions Discharge InstructionsToSigrid geronimo M.D. - 11/11/2019 6:51 AM PLUGGER Return to the Emergency Department/ if he [...] clinic by calling the appointment center at [phone]. Thank you for choosing [facility] for your care. It was a pleasure taking care of you today in our Emergency Department. GER AttachmentsThe following attachments cannot be sent through Care Everywhere. Nausea and Vomiting Adult (Kyrgyz)Diarrhea Adult Jhvq-hi-Hmwf (Kyrgyz) documented in this encounter Medications at Time [...] Forbes M.D. - 11/11/2019 6:16 AM CST [facility] EMERGENCY DEPARTMENT ENCOUNTER Patient Name: Lulu Mata PCP: Primary Care Physician SUBJECTIVE CHIEF COMPLAINT/REASON FOR VISIT Vomiting (Pt presents w/nausea, vomiting and diarrhea onset 2300 yesterday.) HISTORY OF PRESENT ILLNESS Lulu Mata is a 29 y.o. female with a history of asthma presenting with 7 hours of vomiting and diarrhea. She ate dinner at the [employer] last night. Several different types of food [...] felt well before eating dinner at the [employer]. She denies any recentabdominal pain, no prior [...] Forbes M.D. 11/11/19650 Sigrid Forbes M.D. 11/11/19654 GER documented in this encounter Plan of Treatment Not on filedocumented as of this encounter Visit Diagnoses Diagnosis Nausea And Vomiting - Primary Diarrhea documented in this encounter Administered Medications Inactive Administered Medications - up to 3 most recent administrations Medication Order MAR Action Action Date Dose Rate Site ondansetron ODT disintegrating Given 11/11/2019 6:10 AM PLUGGER 8 mg tablet 8 mg (ZOFRAN-ODT) 8 mg, oral, Once, On Sun11/11/19 at 0605, For 1 dose, When splitting ODT at bedside, handle with gloves and a pill splitter to prevent moisture contact. documented in this encounter Active and Recently Administered Medications Times are shown in PLUGGER. Scheduled Medication Order 11/09/2019 11/10/2019 11/11/2019 ondansetron ODT disintegrating tablet 8 mg (ZOFRAN-ODT) ([facility]) 0610 (Given - Provider: Tara Brock R.N.) 8 mg, oral, Once, On Sun11/11/19 at 0605 , For 1 dose, When splitting ODT at bedside, handle with gloves and a pill splitter to prevent moisture contact. documented in this encounter Care Teams Sewing Line Baler Relationship Specialty Start Date End Date Elsewhere, Pcp PCP - General Family Medicine 01/08/18 01/12/21 documented as of this encounter
--- OUTSIDE RECORDS SUMMARY | 2022-05-31 19:38 | XMS_ITS | Encounter Summary ---
:1990 Author Organization [facility] Address [address] [place] [address] Care Team Providers Name Role Phone Ben Arce M.D. Primary Care Provider Reason for Visit Reason Comments Other swollen and sore throat and fluid in ears right more than the left. was just here on Sunday and saw Donya for her arm Encounter Details Date Type Department Care Team Description 01/13/2021 Office Visit Department of Ben Metzger M.D. Sore Throat (Primary Medicine in [place] [address] Dx) [place], [place] [address] [place] [address] [place], [place] [phone] (Work) [phone] Social History Tobacco Use Types Packs/Day Years [...] or relatives? How often do you attend jewish or Never 2021 roman catholic services? Do you belong to any clubs or No 11/20/2021 organizations such as jewish groups, unions, fraternal or athletic groups, or [...] or slept in a jail (including now)? Sex Assigned at Date Recorded Female 12/02/2021 5:19 PM SECURITY INCIDENT HANDLER documented as of this encounter Last Filed [...] Body Mass Index 31.39 12/14/2020 5:24 PM SECURITY INCIDENT HANDLER documented in this encounter Progress Ben Espinal [...] City/State/ZIP Code Phon e Number [facility]- [address] [place] [id number] [place] [address] [address] documented in this encounter Visit Diagnoses Diagnosis Sore Throat - Primary documented in this encounter Care Teams Tufting Machine Operator Single Needle Relationship Specialty Start Date End Date Ben Arce M.D. PCP - General Family Medicine 01/13/[address] [place] [phone] documented as of this encounter
--- OUTSIDE RECORDS SUMMARY | 2022-05-31 19:38 | XMS_ITS | Encounter Summary ---
:1990 Author Organization [facility] Address [address] [place] [address] Care Team Providers Name Role Phone Elsewhere, Pcp Primary Care Provider Unavailable Reason for Visit Reason Comments Amox Encounter Details Date Type Department Care Team Description 10/05/2020 Clinical Communication Department of Family Aguila Arias M.D. [facility] Medicine in [place] [address] [place], [place] [address] [facility] [address] [place], [place] [phone] (Work) [phone] Social History Tobacco Use Types Packs/Day Years [...] or relatives? How often do you attend pentecostalism or Never 2021 sikhism services? Do you belong to any clubs or No 11/20/2021 organizations such as pentecostalism groups, unions, fraternal or athletic groups, or [...] at Date Recorded Female 12/02/2021 5:19 PM CLOTH LAMINATING SUPERVISOR documented as of this encounter Miscellaneous Notes Addendum Note - Aguila Arce M.D. - 10/05/2020 4:11 PM CLOTH LAMINATING SUPERVISOR Addended by: AGUILA ARCE on: 10/05/2020 04:11 PM Modules accepted: Orders H LAMINATING SUPERVISOR Addendum Note - Dali Bird R.M.A. - 10/05/2020 4:09 PM CLOTH LAMINATING SUPERVISOR Addended by: ADLI BIRD on: 10/05/2020 04:09 PM Modules accepted: Orders H LAMINATING SUPERVISOR Telephone Encounter - Dali Bird R.M.A. - 10/05/2020 4:03 PM CLOTH LAMINATING SUPERVISOR Pt's sister is calling on behalf of sister stating that she is restricted to Dr Arce and needs her amox filled. She saw the dentist today, Dr Kelsea Gamino and he prescribed Amox 500 mg. Take 2 tabs STAT and one tab TID till gone #31. H LAMINATING SUPERVISOR documented in this encounter Plan of Treatment Not on filedocumented as of this encounter Visit Diagnoses Not on filedocumented in this encounter Care Teams Parks And Recreation Worker Relationship Specialty Start Date End Date Elsewhere, Pcp PCP - General Family Medicine 01/08/18 01/12/21 documented as of this encounter
--- OUTSIDE RECORDS SUMMARY | 2022-05-31 19:38 | XMS_ITS | Encounter Summary ---
:1990 Author Organization [facility] Address [address] [place] [address] Care Team Providers Name Role Phone Elsewhere, Pcp Primary Care Provider Unavailable Reason for Visit Reason Comments Earache Encounter Details Date Type Department Care Team Description 01/02/2021 Nurse Triage Department of [facility] Angella Herbert, Ear ache Medicine in [place], M.S.N., R.N. [place] [address] [place] [address] 1976 Social History Tobacco Use Types Packs/Day [...] do you attend orthodox or Never 2021 latter-day services? Do you [...] a [place] [facility] (including now)? Sex Assigned at Date Recorded Female 12/02/2021 5:19 PM IMPROVEMENT ADVISOR documented as of this encounter Miscellaneous Notes [...] medication (e.g., ibuprofen or acetaminophen) Protocols used: [id number] Care Advice Patient/Caregiver understands and will follow care advice?: Yes, able to teach back SEE PCP WITHIN 4 HOURS (OR PCP TRIAGE): * IF OFFICE WILL BE OPEN: You need to be seen within the next 3 or 4 hours. Call your doctor (or PLANTING MACHINE OPERATOR/PA) now or as soon as the office [...] need to be seen. Your doctor (or PLANTING MACHINE OPERATOR/PA) will want to talk with you to [...] on filedocumented in this encounter Care Teams Street Worker Relationship Specialty Start Date End Date Elsewhere, Pcp PCP - General Family Medicine 01/08/18 01/12/21 documented as of this encounter
--- OUTSIDE RECORDS SUMMARY | 2022-05-31 19:38 | XMS_ITS | Encounter Summary ---
:1990 Author Organization [facility] Address [address] [place] [address] Care Team Providers Name Role Phone Elsewhere, Pcp Primary Care Provider Unavailable Reason for Visit Reason Comments Hand Injury pt presents with injury to l eft hand, pt states she was holding onto a door knob yesterday at work when someone pushed the door open and smashed her hand Swelling noted. Encounter Details Date Type Department Care Team Description 12/26/2019 Emergency [facility] Sigrid Forbes ontusion Hand Initial Department Minoo Cervantes Left (Primary Dx) [address] [place] [phone] (Wo rk) Social History Tobacco Use Types [...] or relatives? How often do you attend advent or Never 2021 sabianist services? Do you belong to any clubs or No 11/20/2021 organizations such as advent groups, unions, fraternal or athletic groups, or [...] at Date Recorded Female 12/02/2021 5:19 PM WHIZZER HAND documented as of this encounter Last Filed Vital Signs Vital Sign Reading Time Taken Comments Blood Pressure 128/90 12/26/2019 10:18 AM WHIZZER HAND Pulse 78 12/26/2019 10:18 AM WHIZZER HAND Temperature 37 ??C (98.6 ??F) 12/26/2019 10:18 AM WHIZZER HAND Respiratory Rate 16 12/26/2019 10:18 AM WHIZZER HAND Oxygen Saturation 100% 12/26/2019 10:18 AM WHIZZER HAND Inhaled Oxygen Concentration - - Weight 70.8 kg (156 lb 1.4 oz) 12/26/2019 9:26 AM WHIZZER HAND Height 155 cm (5' 1.02) 12/26/2019 9:26 AM WHIZZER HAND Body Mass Index 29.47 12/26/2019 9:26 AM WHIZZER HAND documented in this encounter Discharge Instructions Discharge InstructionsToSigrid geronimo M.D. - 12/26/2019 9:47 AM WHIZZER HAND Return to the Emergency Department with any [...] clinic by calling the appointment center at [phone]. Thank you for choosing [facility] for your care. It was a pleasure taking care of you today in our Emergency Department. ZER HAND documented in this encounter Medications at Time [...] Forbes M.D. - 12/26/2019 9:37 AM CST [facility] EM[facility]GENCY DEPARTMENT ENCOUNTER Patient Name: [...] 9:49 AM Sigrid Forbes M.D. 12/26/19 1052 ZER HAND documented in this encounter Plan of Treatment Not on filedocumented as of this encounter Procedures Procedure Name Priority Date/Time Associated Comments Diagnosis DX HAND LEFT 3 RAD - Semiurgent 12/26/2019 9:39 Result s for this VIEWS (Fast; most ED AM WHIZZER HAND procedure are in patients; some the results inpatients) section. documented in this encounter Results DX Hand Left 3 Views (12/26/2019 9:39 AM WHIZZER HAND) Anatomical Region Laterality Modality Upper Extremity, Hand, Musculoskeletal RST LOS, Left Digital Radiography Musculoskeletal ARZ LOS, Muskuloskeletal FLA LOS Specimen (Source) Anatomical Collection Method Collection Time Re ceived Time Location / / Volume Laterality 12/26/2019 9:40 AM WHIZZER HAND Impressions 12/26/2019 9:41 AM WHIZZER HAND No acute radiographic abnormalities are demonstrated. Narrative 12/26/2019 9:41 AM WHIZZER HAND EXAM: DX HAND LEFT 3 VIEWS COMPARISON: [...] Primary documented in this encounter Care Teams Dowel Machine Operator Relationship Specialty Start Date End Date Elsewhere, Pcp PCP - General Family Medicine 01/08/18 01/12/21 documented as of this encounter
--- OUTSIDE RECORDS SUMMARY | 2022-05-31 19:38 | XMS_ITS | Encounter Summary ---
:1990 Author Organization [facility] Address [address] [place] [address] Care Team Providers Name Role Phone Elsewhere, Pcp Primary Care Provider Unavailable Reason for Visit Physical Therapy (Routine) - Denied Specialty Diagnoses / Procedures Referred By Contact Refer red To Contact Diagnoses Tendonitis Loulou Teresa APRN, [facility] Procedures PT Evaluate and treat C.N.P. [address] [place] [address] Referral ID Status Reason Start Date Expiration Date Visits Requ ested Visits Authorized [id number] Denied 06/08/2020 10/21/2020 1 0 Encounter Details Date Type Department Care Team Description 06/30/2020 Comprehensive Visit Department of Physical Loulou Metz APRN, C.N.P. [address] [place] [phone] Tendonitis Elbow (Primary Dx); Medicine and Yunior Robins P.TMaribell [address] [place] [phone] Tendonitis Rehabilitation in [place], [place] [address] [place] [phone] Social History Tobacco Use Types Packs/Day Years [...] do you attend episcopalian or Never 2021 buddhist services? Do you belong to any clubs or No 11/20/2021 organizations such as episcopalian groups, unions, fraSeamless Medical Systems or athletic groups, or school groups? How [...] at Date Recorded Female 12/02/2021 5:19 PM EVENT MARKETING REPRESENTATIVE documented as of this encounter Consult Notes [...] upper extremity pain/tendinitis Onset Date: 06/08/20 Payor: [facility] [place] CARE / Plan: [facility] CARE RESTRICTED PLAN / Product Type: Medicaid HMO / [facility] Visit Count: 1 PERTINENT MEDICAL / SURGICAL [...] Patient works 40 hours at the local [employer]. Patient has a 7-1/2-year-old son. 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 Patient works the [...] Department of Physical Medicine and Rehabilitation in [address] [address] Dept: [phone] T MARKETING REPRESENTATIVE documented in this encounter Plan of Treatment Not on filedocumented as of this encounter Visit Diagnoses Diagnosis Tendonitis Elbow - Primary Tendonitis documented in this encounter Care Teams Supervisor Bleach Plant Relationship Specialty Start Date End Date Elsewhere, Pcp PCP - General Family Medicine 01/08/18 01/12/21 documented as of this encounter
--- OUTSIDE RECORDS SUMMARY | 2022-05-31 19:38 | XMS_ITS | Encounter Summary ---
:1990 Author Organization [facility] Address [address] [place] [address] Care Team Providers Name Role Phone Elsewhere, Pcp Primary Care Provider Unavailable Reason for Referral Outpatient (Routine) - Closed Specialty Diagnoses / Procedures Referred By Contact Refer red To Contact Diagnoses [facility] Ben Arce M.D. [address] [place] [address] Referral ID Status Reason Start Date Expiration Visits Visits Date Requested Authorized [id number] Closed Continuity of 10/06/2020 10/06/2021 1 1 Care WEAVER Reason for Visit Reason Comments Communication referral Encounter Details Date Type Department Care Team Description 10/06/2020 Clinical Communication Department of Ben Arce Comm unication Family Medicine in [place] (referral ) [place] [address] [facility] [address] [facility] [place] [facility] [phone] Social History Tobacco Use Types Packs/Day Years [...] or relatives? How often do you attend protestant or Never 2021 sabianist services? Do you belong to any clubs or No 11/20/2021 organizations such as protestant groups, unions, fraternal or athletic groups, or [...] or slept in a long-term (including now)? Sex Assigned at Date Recorded Female 12/02/2021 5:19 PM BELT WEAVER documented as of this encounter Miscellaneous Notes Telephone Encounter - Wilma Montelongo R.N. - 10/06/2020 4:17 PM CST Pt advised that referral was faxed to [facility]: [phone] WEAVER Telephone Encounter - Ben Arce M.D. - 10/06/2020 2:55 PM CST External referral order placed. Please fax for patient. Thanks. It should be printed in the office printer. Thanks. WEAVER Telephone Encounter - Ilene Gautam - 10/06/2020 [...] to send referral for her to see [facility] Dentist in [place]. She is on a restricted program through insurance and they will only cover this if referred by Dr. Arce. She is having a tooth pulled on Sunday. Please fax to fax #[phone]. Please call her to let her know if this is done. Thank you. I will send this information to the appropriate staff member who will look into your concern. Is there anything else I can help you with today? Thank you for calling [facility]. WEAVER documented in this encounter Plan of Treatment Not on filedocumented as of this encounter Visit Diagnoses Diagnosis [facility] - Primary documented in this encounter Care Teams Banking Management Consulting Manager Relationship Specialty Start Date End Date Elsewhere, Pcp PCP - General Family Medicine 01/08/18 01/12/21 documented as of this encounter
--- OUTSIDE RECORDS SUMMARY | 2022-05-31 19:38 | XMS_ITS | Encounter Summary ---
:1990 Author Organization [facility] Address [address] [place] [address] Care Team Providers Name Role Phone Elsewhere, Pcp Primary Care Provider Unavailable Reason for Referral Outpatient (Routine) - Closed Specialty Diagnoses / Procedures Referred By Contact Refer red To Contact Family Medicine Zack Macdonald M.D. [facility] Region [address] [place] [address] Referral ID Status Reason Start Date Expiration Date Visits Requ ested Visits Authorized [id number] Closed 12/16/2020 12/16/2021 1 1 ETING ADMIN Reason for Visit Reason Comments Follow-up arm injury Encounter Details Date Type Department Care Team Description 12/16/2020 Office Visit Department of Family Zack Macdonald, Pain Elbow Left Medicine in [place]aswinder Hennessy (Primary Dx) [place], [place] [address] [place] [phone] Social History Tobacco Use Types Packs/Day Years [...] do you attend shinto or Never 2021 mandaeism services? Do you belong to any clubs or No 11/20/2021 organizations such as shinto groups, unions, fraCloud[employer]ix or athletic groups, or school groups? How [...] at Date Recorded Female 12/02/2021 5:19 PM MARKETING ADMIN documented as of this encounter Last Filed Vital Signs Vital Sign Reading Time Taken Comments Blood Pressure 126/92 12/16/2020 3:16 PM MARKETING ADMIN Pulse 78 12/16/2020 3:11 PM MARKETING ADMIN Temperature 36.2 ??C (97.2 ??F) 12/16/2020 3:11 PM MARKETING ADMIN Respiratory Rate - - Oxygen Saturation 97% 12/16/2020 3:11 PM MARKETING ADMIN Inhaled Oxygen Concentration - - Weight 72.1 kg (158 lb 14.4 oz) 12/16/2020 3:11 PM MARKETING ADMIN Height - - Body Mass Index 31.2 12/14/2020 5:24 PM MARKETING ADMIN documented in this encounter Patient Instructions Patient InstructionsZack Macdonald M.D. - 12/16/2020 3:30 PM CST 1. Make an appointment in 3 weeks for follow-up. 2. Sling as needed for comfort. 3. Continue to work on range of motion with the shoulder and elbow. 4. Tylenol or ibuprofen as needed for discomfort. ETING ADMIN documented in this encounter Progress Notes Zack [...] Tylenol or ibuprofen as needed for discomfort. ETING ADMIN documented in this encounter Plan of Treatment Scheduled Referrals Name Type Priority Associated Diagnoses Order S [facility] Outpatient Referral Routine Expec taurus: office [...] Left documented in this encounter Care Teams Consumer Relations Specialist Relationship Specialty Start Date End Date Elsewhere, Pcp PCP - General Family Medicine 01/08/18 01/12/21 documented as of this encounter
--- OUTSIDE RECORDS SUMMARY | 2022-05-31 19:38 | XMS_ITS | Encounter Summary ---
:1990 Author Organization [facility] Address [address] [place] [address] Care Team Providers Name Role Phone Elsewhere, Pcp Primary Care Provider Unavailable Reason for Referral Physical Therapy (Routine) - Denied Specialty Diagnoses / Procedures Referred By Contact Refer red To Contact Diagnoses Tendonitis Loulou Teresa APRN, [facility] Procedures PT Evaluate and treat C.N.P. [address] [place] [address] Referral ID Status Reason Start Date Expiration Date Visits Requ ested Visits Authorized [id number] Denied 06/08/2020 10/21/2020 1 0 Reason for Visit Reason Comments Post Ed Visit Follow-up Encounter Details Date Type Department Care Team Description 06/08/2020 Office Visit Department of [facility] Loulou Teresa Te ndonitis (Primary Medicine in [facility] GRIP, C.N.P. Dx) [place], [place] [address] [place] [phone] Social History Tobacco Use Types Packs/Day Years [...] or relatives? How often do you attend moravian or Never 2021 jehovah's witness services? Do you belong to any clubs or No 11/20/2021 organizations such as moravian groups, unions, fraternal or athletic groups, or [...] at Date Recorded Female 12/02/2021 5:19 PM KNOCKDOWN MAN documented as of this encounter Last Filed [...] Primary documented in this encounter Care Teams Wood Getter Relationship Specialty Start Date End Date Elsewhere, Pcp PCP - General Family Medicine 01/08/18 01/12/21 documented as of this encounter
--- OUTSIDE RECORDS SUMMARY | 2022-05-31 19:38 | XMS_ITS | Encounter Summary ---
:1990 Author Organization [facility] Address [address] [place] [address] Care Team Providers Name Role Phone Elsewhere, Pcp Primary Care Provider Unavailable Reason for Visit Reason Comments Sinusitis Encounter Details Date Type Department Care Team Description 01/10/2020 Office Visit Urgent Care, [facility], Sin usitis Acute [place], in [place], FATOU, C.N.P., (Samina pendleton Dx) [place] D.N.P. [address] [place] [phone] [phone] Social History Tobacco Use Types Packs/Day Years [...] do you attend quaker or Never 2021 cheondoism services? Do you [...] at Date Recorded Female 12/02/2021 5:19 PM LEATHER COVERER documented as of this encounter Last Filed [...] Body Mass Index 30.4 12/26/2019 9:26 AM LEATHER COVERER documented in this encounter Patient Instructions Patient [...] bacteria. Still, most people seen in the [facility] for upper respiratory infectionor sinusitis symptoms [...] and replace them as recommended by the ore fielder. Note: Having your humidity too high (more [...] help open sinuses and allow easier breathing. Ehka-pmm-cevnjhb treatments* In addition to the previous suggestions, you may get relief for nasal and sinus obstruction or discomfort by taking non-prescription, mndj-jnm-jvxqcuw (OTC) medications. Many OTC medications combine a [...] with your health care provider. ? 2008 [facility] ([facility]). All rights reserved. [id number] documented in this encounter Progress Notes Esther [...] needsat this time. Electronically signed by: Esther Andrea APRN, C.N.P., Helen.N.P. 01/10/20 10:51 AM CDT documented in this encounter Plan of Treatment Not on filedocumented as of this encounter Visit Diagnoses Diagnosis Sinusitis Acute - Primary documented in this encounter Care Teams Director Of Staff Development Relationship Specialty Start Date End Date Elsewhere, Pcp PCP - General Family Medicine 01/08/18 01/12/21 documented as of this encounter
--- OUTSIDE RECORDS SUMMARY | 2022-05-31 19:38 | XMS_ITS | Encounter Summary ---
:1990 Author Organization [facility] Address [address] [place] [address] Care Team Providers Name Role Phone Ben Arce M.D. Primary Care Provider Reason for Visit Reason Comments Med Refill Encounter Details Date Type Department Care Team Description 03/16/2021 Refill Department of Family Medicine Ben Maynard M.D. Med Refill in [facility] [address] [place] [phone] (Wo rk) Social History Tobacco Use Types [...] do you attend orthodoxy or Never 2021 latter day services? 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 - 03/16/2021 11:58 AM CDT Refills must come from Dr Arce due to a Restricted program Unable to refill per protocol: Name of Medications Needing Refill: Naproxen Last Refill Date: 02/10/21 [id number], 0 refills Last / Future Appointment: 01/13/21 documented in this encounter Plan of Treatment Not on filedocumented as of this encounter Visit Diagnoses Diagnosis Pain Elbow Left documented in this encounter Care Teams Remedial Masseur Relationship Specialty Start Date End Date Ben Arce M.D. PCP - General Family Medicine 01/13/[address] [place] [address] documented as of this encounter
--- OUTSIDE RECORDS SUMMARY | 2022-05-31 19:38 | XMS_ITS | Encounter Summary ---
:1990 Author Organization [facility] Address [address] [place] [address] Care Team Providers Name Role Phone Elsewhere, Pcp Primary Care Provider Unavailable Reason for Referral Outpatient (Routine) - Canceled Specialty Diagnoses / Procedures Referred By Contact Refer red To Contact Diagnoses Numbness Ben Arce M.D. External, Referring [address] [place] [address] Referral ID Status Reason Start Date Expiration Date Visits V isits Requested Authorized [id number] Canceled No 08/26/2019 08/25/2020 1 1 access/unsa tisfactory access NERY OPERATOR HELPER CRACKING UNIT Reason for Visit Reason Onset Date Comments Communication 08/26/2019 Encounter Details Date Type Department Care Team Description 08/26/2019 Clinical Communication Department of Ben Metzger , Communication Medicine in [place] [address] [place] [phone] Social History Tobacco Use Types Packs/Day Years [...] or relatives? How often do you attend jainism or Never 2021 denominational services? Do you belong to any clubs or No 11/20/2021 organizations such as jainism groups, unions, fraOsteogenix or athletic groups, or school groups? How [...] at Date Recorded Female 12/02/2021 5:19 PM REFINERY OPERATOR HELPER CRACKING UNIT documented as of this encounter Miscellaneous Notes Telephone Encounter - Alexandria Whittington - 08/27/2019 9:52 AM CST I will work on this. NERY OPERATOR HELPER CRACKING UNIT Telephone Encounter - Sridhar Espinal - 08/27/2019 8:24 AM CST [place], can you work on this please? Thank you!! NERY OPERATOR HELPER CRACKING UNIT Telephone Encounter - Ben Arce M.D. - 08/26/2019 3:36 PM CST External referral order placed. Please help her to find nearby neurology. None in [place], she has travel to [place] or [facility]. Thanks. NERY OPERATOR HELPER CRACKING UNIT Telephone Encounter - Nadya Koehler, RMaribellN. - 08/26/2019 12:19 PM REFINERY OPERATOR HELPER CRACKING UNIT Can an outside referral be entered for neurology for sooner appointment? Thank you. NERY OPERATOR HELPER CRACKING UNIT Telephone Encounter - Rylie Juárez - 08/26/2019 12:[address] Daiana Booth does not have an opening in [place] until December and [place] cannot [facility]. Can a referral be placed for a neurologist that is closer? NERY OPERATOR HELPER CRACKING UNIT documented in this encounter Plan of Treatment Not on filedocumented as of this encounter Visit Diagnoses Diagnosis Numbness - Primary documented in this encounter Care Teams Knotter Hand Relationship Specialty Start Date End Date Elsewhere, Pcp PCP - General Family Medicine 01/08/18 01/12/21 documented as of this encounter
--- OUTSIDE RECORDS SUMMARY | 2022-05-31 19:38 | XMS_ITS | Encounter Summary ---
:1990 Author Organization [facility] Address [address] [place] [address] Care Team Providers Name Role Phone Ben Arce M.D. Primary Care Provider Reason for Visit Reason Comments Other right hand injury---yesterda y Encounter Details Date Type Department Care Team Description 05/18/2021 Office Visit Department of Alexander Estrella Pain Hand Right (Primary Dx); Medicine in [facility] Contusion Hand Initial Right [place], [place] [address] [place] [phone] Social History Tobacco Use Types Packs/Day Years [...] do you attend religion or Never 2021 buddhism services? Do you [...] Date Recorded Female 12/02/2021 5:19 PM RIVER DRIVER documented as of this encounter Last Filed [...] She had pain limiting her making a kalispel with the thumb and index finger. No [...] Right documented in this encounter Care Teams Time Study Observer Relationship Specialty Start Date End Date Ben Arce M.D. PCP - General Family Medicine 01/13/[address] [place] [address] documented as of this encounter
--- OUTSIDE RECORDS SUMMARY | 2022-05-31 19:38 | XMS_ITS | Encounter Summary ---
:1990 Author Organization [facility] Address [address] [place] [address] Care Team Providers Name Role Phone Elsewhere, Pcp Primary Care Provider Unavailable Reason for Visit Reason Comments Pain In Limb Follow up on left elbow Outpatient (Routine) - Closed Specialty Diagnoses / Procedures Referred By Contact Refer red To Contact Family Medicine Zack Macdonald M.D. [facility] Region [address] [place] [address] Referral ID Status Reason Start Date Expiration Date Visits Requ ested Visits Authorized [id number] Closed 12/16/2020 12/16/2021 1 1 Encounter Details Date Type Department Care Team Description 12/24/2020 Office Visit Department of Donya Fitzgerald Pain Elbow Left Medicine in [facility], FATOU, C.N.P., (Primary Dx) [place], [place] D.N.P. [address] [place] [phone] Social History Tobacco Use Types Packs/Day Years [...] do you attend religion or Never 2021 scientologist services? Do you belong to any clubs [...] Date Recorded Female 12/02/2021 5:19 PM OCCUPATIONAL THERAPY INSTRUCTOR documented as of this encounter Last Filed Vital Signs Vital Sign Reading Time Taken Comments Blood Pressure 128/80 12/24/2020 3:26 PM OCCUPATIONAL THERAPY INSTRUCTOR Pulse 80 12/24/2020 3:26 PM OCCUPATIONAL THERAPY INSTRUCTOR Temperature 36.4 ??C (97.5 ??F) 12/24/2020 3:26 PM OCCUPATIONAL THERAPY INSTRUCTOR Respiratory Rate - - Oxygen Saturation 97% 12/24/2020 3:26 PM OCCUPATIONAL THERAPY INSTRUCTOR Inhaled Oxygen Concentration - - Weight 72.1 kg (158 lb 15.2 oz) 12/24/2020 3:26 PM OCCUPATIONAL THERAPY INSTRUCTOR Height - - Body Mass Index 31.21 12/14/2020 5:24 PM OCCUPATIONAL THERAPY INSTRUCTOR documented in this encounter Progress Notes Donya [...] plan of care. Donya Lind, MIGUELANGEL, DNP PATIONAL THERAPY INSTRUCTOR documented in this encounter Plan of Treatment Not on filedocumented as of this encounter Visit Diagnoses Diagnosis Pain Elbow Left - Primary documented in this encounter Care Teams Collections Professional Relationship Specialty Start Date End Date Elsewhere, Pcp PCP - General Family Medicine 01/08/18 01/12/21 documented as of this encounter
--- OUTSIDE RECORDS SUMMARY | 2022-05-31 19:38 | XMS_ITS | Encounter Summary ---
:1990 Author Organization [facility] Address [address] [place] [address] Care Team Providers Name Role Phone Elsewhere, Pcp Primary Care Provider Unavailable Encounter Details Date Type Department Care Team Description 01/07/2021 Clinical Communication Department of [facility] Donya Lind [facility] in [facility], C.N.P.[place], [place] D.N.P. [address] [place] [phone] Social History Tobacco Use Types Packs/Day Years [...] do you attend rastafari or Never 2021 jewish services? Do you belong to any clubs [...] at Date Recorded Female 12/02/2021 5:19 PM JACKHAMMER SPLITTER OPERATOR documented as of this encounter Miscellaneous Notes [...] patient Please call [place] before patient arrives... [phone] documented in this encounter Plan of Treatment Not on filedocumented as of this encounter Visit Diagnoses Not on filedocumented in this encounter Care Teams Explosive Technician Relationship Specialty Start Date End Date Elsewhere, Pcp PCP - General Family Medicine 01/08/18 01/12/21 documented as of this encounter
--- OUTSIDE RECORDS SUMMARY | 2022-05-31 19:38 | XMS_ITS | Encounter Summary ---
:1990 Author Organization [facility] Address [address] [place] [address] Care Team Providers Name Role Phone Elsewhere, Pcp Primary Care Provider Unavailable Encounter Details Date Type Department Care Team Description 01/07/2021 Hospital Encounter Department of [place], Zack Hammer, Pain Elbow Left Radiology, [facility], in [place] [address] [place], [place] [address] [place] [address] [place], [place] [phone] (Work) [phone] Social History Tobacco Use Types Packs/Day Years [...] do you attend alevism or Never 2021 baptism services? Do you [...] at Date Recorded Female 12/02/2021 5:19 PM ELECTRICIAN SHIP documented as of this encounter Medications at [...] Left documented in this encounter Care Teams Wine Consultant Relationship Specialty Start Date End Date Elsewhere, Pcp PCP - General Family Medicine 01/08/18 01/12/21 documented as of this encounter
--- OUTSIDE RECORDS SUMMARY | 2022-05-31 19:38 | XMS_ITS | Encounter Summary ---
:1990 Author Organization [facility] Address [address] [place] [address] Care Team Providers Name Role Phone Elsewhere, Pcp Primary Care Provider Unavailable Reason for Referral Outpatient (Routine) - Closed Specialty Diagnoses / Procedures Referred By Contact Refer red To Contact Emergency Medicine Diagnoses Pain Neck Strain Neck Initial Contusion Leg Initial Left Derrek Leon M.D. [facility] Region [address] [place] [address] Referral ID Status Reason Start Date Expiration Date Visits Requ ested Visits Authorized [id number] Closed 08/01/2019 07/31/2020 1 1 Reason for Visit Reason Comments Neck Pain Pt presents from Urgent care for evaluation of neck pain and tingling of left leg. Encounter Details Date Type Department Care Team Description 08/01/2019 Emergency [place] Emergency Derrek Leon Pa in Neck (Primary Dx); Department M.DMaribell Strain Neck Initial; [address] [facility] [address] [facility] Contusion Leg Initial Left; [place], [place] Paresthesias Feet [phone] Social History Tobacco Use Types Packs/Day [...] or relatives? How often do you attend jehovah's witness or Never 2021 mu-ism services? Do you belong to any clubs or No 11/20/2021 organizations such as jehovah's witness groups, unions, fraternal or athletic groups, or [...] at Date Recorded Female 12/02/2021 5:19 PM SILK SPREADER documented as of this encounter Last Filed [...] be sent through Care Everywhere. Muscle Strain (Austrian)Cervical Sprain (Austrian)Contusion (Austrian)documented in this encounter Medications at Time of [...] Feet documented in this encounter Care Teams Sample Taker Operator Relationship Specialty Start Date End Date Elsewhere, Pcp PCP - General Family Medicine 01/08/18 01/12/21 documented as of this encounter
--- OUTSIDE RECORDS SUMMARY | 2022-05-31 19:38 | XMS_ITS | Encounter Summary ---
:1990 Author Organization [facility] Address [address] [place] [address] Care Team Providers Name Role Phone Elsewhere, Pcp Primary Care Provider Unavailable Reason for Visit Reason Comments Wrist Pain 30 y/o f presents with R wri st and hand pain since . Pt says is sharp and radiates up her ar m, no injury, has been taking advil with some relief. Encounter Details Date Type Department Care Team Description 05/30/2020 Emergency [place] Emergency Sigrid Forbes endofrantz Forearm Department D, M.D. (Primary Dx) [address] [place] [phone] (Wo rk) Social History Tobacco Use Types [...] do you attend advent or Never 2021 cheondoism services? Do you [...] at Date Recorded Female 12/02/2021 5:19 PM NARROW GAUGE BRAKEMAN documented as of this encounter Last Filed [...] Body Mass Index 30.81 12/26/2019 9:26 AM NARROW GAUGE BRAKEMAN documented in this encounter Discharge Instructions Discharge [...] clinic by calling the appointment center at [phone]. Thank you for choosing [facility] for your care. It was a pleasure [...] Forbes M.D. - 05/30/2020 12:11 PM CDT [place] [facility] EMERGENCY DEPARTMENT ENCOUNTER Patient Name: [...] Primary documented in this encounter Care Teams Production Team Member Relationship Specialty Start Date End Date Elsewhere, Pcp PCP - General Family Medicine 01/08/18 01/12/21 documented as of this encounter
--- OUTSIDE RECORDS SUMMARY | 2022-05-31 19:38 | XMS_ITS | Encounter Summary ---
:1990 Author Organization [facility] Address [address] [place] [address] Care Team Providers Name Role Phone Elsewhere, Pcp Primary Care Provider Unavailable Reason for Visit Reason Comments Facial Pain Pt presents for eval of sinu s pain, congestion, throat pain and claire ear pain. sick for 3 1/2 weeks . No known fever. Using OTC sudafed and afrin without relief. Encounter Details Date Type Department Care Team Description 09/09/2019 Emergency [place] Emergency Sigrid Forbes (Primary Dx); Department D, M.D. Infection Upper Respiratory Viral [address] [facility] [place] [phone] (Wo rk) Social History Tobacco Use Types [...] do you attend amish or Never 2021 adventism services? Do you [...] at Date Recorded Female 12/02/2021 5:19 PM EASEMENT MAN documented as of this encounter Last Filed Vital Signs Vital Sign Reading Time Taken Comments Blood Pressure 135/101 09/09/2019 9:30 AM EASEMENT MAN Pulse 75 09/09/2019 9:30 AM EASEMENT MAN Temperature 36 ??C (96.8 ??F) 09/09/2019 9:30 AM EASEMENT MAN Respiratory Rate 18 09/09/2019 9:30 AM EASEMENT MAN Oxygen Saturation 96% 09/09/2019 9:30 AM EASEMENT MAN Inhaled Oxygen Concentration - - Weight 72.6 kg (160 lb) 09/09/2019 9:39 AM EASEMENT MAN Height 152.4 cm (5') 09/09/2019 9:39 AM EASEMENT MAN Body Mass Index 31.25 09/09/2019 9:39 AM EASEMENT MAN documented in this encounter Discharge Instructions Discharge InstructionsTomSigrid remy M.D. - 09/09/2019 9:41 AM EASEMENT MAN Return to the Emergency Department if you [...] clinic by calling the appointment center at [phone]. Thank you for choosing [facility] for your care. It was a pleasure taking care of you today in our Emergency Department. MENT MAN AttachmentsThe following attachments cannot be sent through Care Everywhere. Sinus Rinse Wiub-kl-Zmzm (Mongolian)Sinusitis Adult Ylzu-dv-Voph (Mongolian) documented in this encounter Medications at Time [...] Forbes M.D. 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 09/09/19946 MENT MAN documented in this encounter Plan of Treatment Not on filedocumented as of this encounter Visit Diagnoses Diagnosis Sinusitis - Primary Infection Upper Respiratory Viral documented in this encounter Care Teams Carton And Can Supply Supervisor Relationship Specialty Start Date End Date Elsewhere, Pcp PCP - General Family Medicine 01/08/18 01/12/21 documented as of this encounter
--- OUTSIDE RECORDS SUMMARY | 2022-05-31 19:38 | XMS_ITS | Encounter Summary ---
:1990 Author Organization [facility] Address [address] [place] [address] Care Team Providers Name Role Phone Ben [...] Type Department Care Team Description 03/01/2021 Emergency [place] Emergency Valerie Malone Contu sion Head Initial (Primary Dx); Department [place] Strain Neck Initial [address] [place] [phone] Social History Tobacco Use Types Packs/Day Years [...] or relatives? How often do you attend bahai or Never 2021 islam services? Do you belong to any clubs or No 11/20/2021 organizations such as bahai groups, unions, fraternal or athletic groups, or [...] at Date Recorded Female 12/02/2021 5:19 PM FLIGHT OPERATIONS MANAGER documented as of this encounter Last [...] through Care Everywhere. Facial or Scalp Contusion (Japanese)documented in this encounter Medications at Time of [...] ondansetron ODT disintegrating tablet 4 mg (ZOFRAN-ODT) ([facility] ED) 1101 (Given - Provider: Nita Rao R.N.) 4 mg, oral, Once, On Sun03/01/21 at 1058 , For 1 dose, When splitting ODT at bedside, handle with gloves and a pill splitter to prevent moisture contact. documented in this encounter Care Teams Chromium Plater Relationship Specialty Start Date End Date Ben Arce M.D. PCP - General Family Medicine 01/13/[address] [place] [phone] documented as of this encounter
--- OUTSIDE RECORDS SUMMARY | 2022-05-31 19:38 | XMS_ITS | Encounter Summary ---
:1990 Author Organization [facility] Address [address] [place] [address] Care Team Providers Name Role Phone Ben Arce M.D. Primary Care Provider Reason for Visit Reason Comments Med Refill Encounter Details Date Type Department Care Team Description 05/23/2021 Refill Department of Family Medicine Ben Maynard M.D. Med Refill in [facility] [address] [place] [phone] (Wo rk) Social History Tobacco Use Types [...] do you attend restoration or Never 2021 tenriism services? Do you [...] or slept in a assisted (including now)? Education Answer Date Recorded What is the highest level of school you have completed or 12 th grade 05/17/2021 the highest degree you have received? Sex Assigned at Date Recorded Female 12/02/2021 5:19 PM KILN BURNER HELPER documented as of this encounter Miscellaneous Notes Telephone Encounter - Rylie Le RMaribellMKalpesh - 05/23/2021 1:08 PM CDT Medication Name: cetirizine Last Office Visit: 05/18/21 Future Office Visit: none Last Blood Pressure: (74674) 05/18/21 Last Set of Labs: 01/13/21 Patient is restricted to Dr. Ritter for all refills documented in this encounter Plan of Treatment Not on filedocumented as of this encounter Visit Diagnoses Diagnosis Rhinitis Allergic documented in this encounter Care Teams Senior Technical Program Manager Relationship Specialty Start Date End Date Ben Arce M.D. PCP - General Family Medicine 01/13/[address] [place] [address] documented as of this encounter
--- OUTSIDE RECORDS SUMMARY | 2022-05-31 19:38 | XMS_ITS | Encounter Summary ---
:1990 Author Organization [facility] Address [address] [place] [address] Care Team Providers Name Role Phone Elsewhere, Pcp Primary Care Provider Unavailable Reason for Referral Outpatient (Routine) - Closed Specialty Diagnoses / Procedures Referred By Contact Refer red To Contact Neurology Diagnoses Contusion Leg Initial Left Numbness Ben Arce M.D. [facility] Region [address] [place] [address] Referral ID Status Reason Start Date Expiration Date Visits V isits Requested Authorized [id number] Closed Specialty 08/11/2019 08/10/2020 1 1 Services Required Reason for Visit Reason Comments Follow-up ED 08/01 [facility] Outpatient (Routine) - Closed Specialty Diagnoses / Procedures Referred By Contact Refer red To Contact Emergency Medicine Diagnoses Pain Neck Strain Neck Initial Contusion Leg Initial Left Derrek Leon M.D. [facility] Region [facility] [place] [address] Referral ID Status Reason Start Date Expiration Date Visits Requ ested Visits Authorized [id number] Closed 08/01/2019 07/31/2020 1 1 Encounter Details Date Type Department Care Team Description 08/11/2019 Office Visit Department of Ben Metzger M.D. Pain Neck (Primary Dx); Medicine in [facility] [address] Strain Neck Initial; [place], [place] Contusion Leg Initial Left; [address] [place] [address] Numbness [place], [place] [phone] (Work) [phone] Social History Tobacco Use Types Packs/Day Years [...] do you attend pentecostalism or Never 2021 anabaptism services? Do you [...] at Date Recorded Female 12/02/2021 5:19 PM CARPENTER INSPECTOR documented as of this encounter Last Filed [...] Numbness documented in this encounter Care Teams Weld Engineer Relationship Specialty Start Date End Date Elsewhere, Pcp PCP - General Family Medicine 01/08/18 01/12/21 documented as of this encounter
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
--- OUTSIDE RECORDS SUMMARY | 2022-05-31 19:38 | XMS_ITS | Encounter Summary ---
:1990 Author Organization [facility] Address [address] [place] [address] Care Team Providers Name Role Phone Ben Arce M.D. Primary Care Provider Reason for Visit Reason Comments Med Refill Naproxen Encounter Details Date Type Department Care Team Description 02/10/2021 Refill Department of Ben Metzger M.D. Med Refill (Naproxen) Medicine in [place] [address] [place], [place] [address] [place] [address] [place] [address] [phone] Social History Tobacco Use Types Packs/Day Years [...] do you attend worship or Never 2021 yazidi services? Do you belong to any clubs [...] at Date Recorded Female 12/02/2021 5:19 PM NON LINEAR EDITOR documented as of this encounter Miscellaneous Notes Telephone Encounter - Kennedi Mckeon, R.M.A. - 02/10/2021 10:12 AM CDT Medication refill Naproxen Last filled 01/13/21 Last OV 01/13/21, 01/07/21 Future appointment None scheduled documented in this encounter Plan of Treatment Not on filedocumented as of this encounter Visit Diagnoses Diagnosis Pain Elbow Left documented in this encounter Care Teams Junior Project Coordinator Relationship Specialty Start Date End Date Ben Arce M.D. PCP - General Family Medicine 01/13/[address] [place] [address] documented as of this encounter
--- OUTSIDE RECORDS SUMMARY | 2022-05-31 19:39 | XMS_ITS | Encounter Summary ---
:1990 Author Organization [facility] Address [address] [place] [address] Care Team Providers Name Role Phone Elsewhere, Pcp Primary Care Provider Unavailable Reason for Visit Reason Comments Sinus Symptoms 3 wks ago; started with ST, then ears and facial pressure. Pt using NetiPot. Sore Throat strep exposure at work Encounter Details Date Type Department Care Team Description 05/08/2018 Office Visit Express Care in [facility] Arely Ferrell Sinu sitis [place], [place] DAMPENER OPERATOR, C.N.P. (Primary Dx) [address] [place] [phone] Social History Tobacco Use Types Packs/Day Years [...] you attend latter day or Never 2021 restorationism services? Do you belong to any clubs [...] at Date Recorded Female 12/02/2021 5:19 PM WATER SYSTEMS ENGINEER documented as of this encounter Last Filed [...] care provider none identified. Recently moved to [place]. REVIEW OF SYSTEMS Constitutional: Negative for fever. [...] Primary documented in this encounter Care Teams Fashion Buying Internship Relationship Specialty Start Date End Date Elsewhere, Pcp PCP - General Family Medicine 01/08/18 01/12/21 documented as of this encounter
--- OUTSIDE RECORDS SUMMARY | 2022-05-31 19:39 | XMS_ITS | Encounter Summary ---
:1990 Author Organization [facility] Address [address] [place] [address] Care Team Providers Name Role Phone Unavailable Primary Care Provider Unavailable Encounter Details Date Type Department Care Team Description 01/15/2017 Hospital Encounter HX [facility] MAPérezN Felix Guillen M.D. [address] [place], [place] [address] (Wo rk) Social History [...] do you attend hoahaoism or Never 2021 protestant services? Do you [...] at Date Recorded Female 12/02/2021 5:19 PM EDUCATION ADVISER documented as of this encounter Last Filed [...] 01/15/2017 11:20 PM CDT ED Discharge Instructions [facility] [address] [place] [address] Name: DILLAN MATA Date of : 1990 12:00 AM Visit Date: 01/15/2017 7:46 PM [facility] Number: [id number] Address: [address] [place] [address] Primary Care Provider: PCP, BHARATHI IMPORTANT: [facility] in [place] would like to thank you for allowing [...] becomes cold, blue, numb or tingly ?? [phone] [facility], [address] [place] [address], [place] [address]. All rights reserved. This information is not [...] if you dont have one. Go to [email or web address] and click on Create Your Account. Then, follow the directions to complete the online form. Youll be asked for your [facility] number which you can find at the [...] nurse or physician. Patient Signature or Responsible Green Party/Relationship Date Time Provider Signature Date Time [...] nurse or physician. Patient Signature or Responsible Green Party/Relationship Date Time Provider Signature Date Time Source: Correlor Document Id: [id number] Angelica Sandra R.N. - 01/15/2017 11:20 PM CDT ED Depart Summary [facility] Emergency Department Clinical Discharge Summary PERSON INFORMATION Name DILLAN MATA Age 26 Years 1990 12:00 AM Sex Female Language Swedish PCP PCP, ELSEWHERE Marital Status Unknown Visit Id Visit Reason Hand pain-swelling; SWOLLEN RIGHT HAND Specialty Enc Type Emergency Med Service Emergency Medicine Referred by Track Group MAQN ED Discharge 01/15/2017 11:10 PM Tracking Id [id number] Checkout 01/15/2017 11:10 PM Checkin 01/15/2017 7:46 PM Acuity 4 -Less Urgent Dispo Type * Discharged to Home or Self Care Arrival 01/15/2017 7:46 PM Reg Status LOS 000 03:24 Address: [address] [place] [address] Comment: PROVIDER INFORMATION Provider Role Provider Contact Time ANGELICA SANDRA ED Nurse 01/15/17 19:57 NIKOS MENDEZ MD ED Provider 01/15/17 20:09 DIAGNOSIS Contusion Hand Initial R Comment: PATIENT EDUCATION INFORMATION Instructions: CONTUSION, Hand Follow up: With: Address: When: Follow up with primary care provider Within As Needed Comments: Call for follow up appointment. If symptoms worsen. Source: [facility] POWERCHART Document Id: [id number] documented in this encounter Medications at Time [...] ANGELICA SANDRA - 01/15/2017 23:19 CDT Source: [facility]relor Document Id: [id number] CDT!9 Angelica Sandra R.N. - 01/15/2017 11:05 [...] ANGELICA SANDRA - 01/15/2017 23:19 CDT Source: [facility]relor Document Id: [id number] CDT!9 Angelica Sandra R.N. - 01/15/2017 11:02 [...] Motor Response Sophie : Obeys simple commands Nelson Coma Score : 15 ANGELICA SANDRA 01/15/2017 23:02 CDT GI Reassess GI Patient Stated Symptoms : None ANGELICA SANDRA - 01/15/2017 23:02 CDT /OB Reassess Patient Stated Symptoms : None ANGELICA SANDRA - 01/15/2017 23:02 CDT Source: [place] [employer]OWER[place] Document Id: [id number] CDT!34 Kim Bartholomew R.N. - 01/15/2017 10:00 [...] Brenda RN - 01/15/2017 22:00 CDT Source: [facility]relor Document Id: [id number] CDT!15 Nikos Mendez M.D. - 01/15/2017 9:52 [...] Stat, Patient Bed, Once, 01/15/2017 21:53 CDT, [facility] Urology. Radiology results:Emergency physician interpretation: Creator: Nikos Mendez Date: Jan 15, 2017 23:04:53 Subject: Preliminary ER Physician Findings (preliminary only - not final):Three-view x-ray of the right hand: Negative for fracture or dislocation. Brant Cortes Impression and Plan Diagnosis Contusion Hand Initial R (Discharge, Emergency medicine, Medical) Plan Condition: Stable. Disposition: Discharged: Time 01/15/2017 23:05:00, to home. Prescriptions: Prescription [facility]: ibuprofen 200 mg oral tablet (Prescribe): [...] MENDEZ MD On: 01/15/2017 11:07 PM Source: [facility] POWERCHART Document Id: {[id number]} Angelica Sandra R.N. - 01/15/2017 8:55 PM [...] Response Sophie : Oriented Best Motor Response Nelson : Obeys simple commands Sophie Coma Score : 15 ANGELICA SANDRA 01/15/2017 20:55 CDT GI Reassess GI Patient Stated Symptoms : None ANGELICA SANDRA 01/15/2017 20:55 CDT Source: [facility] POWERCHART Document Id: [id number] CDT!3 Angelica Sandra R.N. - 01/15/2017 7:51 [...] PNED ; Probability: 0 ; Diagnosis Code: [id number] Triage Chief Complaint Description : Pt presents [...] vehicle, Ambulatory Track : Medical Languages : Swedish Vital Signs Assessed : Yes GCS Assessed [...] kg/m2 ANGELICA SANDRA - 01/15/2017 19:51 CDT Nelson Coma Eye Opening Response Nelson : Spontaneously Best Verbal Response Nelson : Oriented Best Motor Response Nelson : Obeys simple commands Sophie Coma Score : 15 ANGELICA SANDRA - 01/15/2017 19:51 CDT Pain Assessment Pain [...] -Less Urgent Tracking Group : MAQN ED NAGELICA SANDRA 01/15/2017 19:51 CDT Allergy (As Of: [...] None ANGELICA SANDRA 01/15/2017 19:51 CDT Source: [facility] Document Id: [id number] CDT!117 documented in this encounter Miscellaneous Notes Miscellaneous - Conversion, Historical Provider Ser - 01/15/2017 11:10 PM CDT Coding Summary-Paper Based CODING DATE: 01/22/2017 FINAL [facility] STATUS: * Discharged to Home or Self [...] DUONG Date Saved: 01/22/2017 10:08 am Source: Correlor Document Id: [id number] Miscellaneous - Angelica Sandra RMaribellN. - 01/15/2017 11:05 PM CDT Valuables/Belongings Valuables/Belongings Entered On: 01/15/2017 23:20 CDT Performed On: 01/15/2017 23:05 CDT by ANGELICA SANDRA Valuables/Belongings Belongings Sent Home With : all belongings sent home with patient ANGELICA SANDRA - 01/15/2017 23:20 CDT Source: [facility] Document Id: [id number] CDT!3 documented in this encounter Plan of [...]
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
--- OUTSIDE RECORDS SUMMARY | 2022-05-31 19:39 | XMS_ITS | Encounter Summary ---
:1990 Author Organization [facility] Address [address] [place] [address] Care Team Providers Name Role Phone Elsewhere, [...] Type Department Care Team Description 07/23/2019 Emergency [place] [facility] Bull Calderon Cos tochondritis (Primary Department M.D. Dx) [address] [place] [phone] Social History Tobacco Use Types Packs/Day Years [...] do you attend rastafarian or Never 2021 latter day services? Do [...] at Date Recorded Female 12/02/2021 5:19 PM FURNACE CLEANER documented as of this encounter Last [...] cannot be sent through Care Everywhere. Costochondritis Uqlk-yn-Yxqh (Frisian)documented in this encounter Medications at Time of Discharge Medication Sig Dispensed Refills Start Date End Date acetaminophen (TYLENOL Take by mouth as 0 08/11/2019 ORAL) needed. etonogestreL (NEXPLANON) 68 1 each by implant 0 0 01/15/2017 12/20/2021 mg subdermal implant route continuously. traMADol (ULTRAM) 50 mg Take 1 tablet (50 9 tablet 0 07/2307/26/2019 tabletIndications: Acute mg total) by mouth Pain every 8 (eight) hours as needed for pain for up to 3 days Indications: Acute Pain. albuterol (PROVENTIL Inhale 2 puffs 1 Inhaler 1 10/31/2018 07/29/2019 HFA,VENTOLIN HFA) 90 every 6 (six) mcg/actuation inhaler hours as needed for wheezing. guaiFENesin (MUCINEX) 600 Take 600 mg by [...] Plan Impression: Costochondritis Plan: Patient has utilize cebq-tyr-ednmkny medications without improvement or alteration in her symptomatology. Patient be started on prednisone 20 mg daily for 5 days, the 1st dose administered here in the emergency department. Ultram 50 mg 1/2-1 tablet to be utilized every 6 hours as needed for painrating 7-10/10 severity, quantity 15 with no refills was prescribed from the [employer] medication dispenser as it is currently raining [...] dose documented in this encounter Care Teams Graphics Intern Relationship Specialty Start Date End Date Elsewhere, Pcp PCP - General Family Medicine 01/08/18 01/12/21 documented as of this encounter
--- OUTSIDE RECORDS SUMMARY | 2022-05-31 19:39 | XMS_ITS | Encounter Summary ---
:1990 Author Organization [facility] Address [address] [place] [address] Care Team Providers Name Role Phone Unavailable Primary Care Provider Unavailable Encounter Details Date Type Department Care Team Description 06/14/2017 Hospital Encounter HX [facility] MAQN Essence Yin M.D. [address] [place], [place] [phone] (Wo rk) Social History [...] you attend oriental orthodox or Never 2021 anabaptist services? 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 documented as of this encounter Last Filed [...] 06/14/2017 9:06 PM CDT ED Depart Summary [facility] Emergency Department Clinical Discharge Summary PERSON INFORMATION Name DILLAN MATA Age 27 Years 1990 12:00 AM Sex Female Language Samoan PCP PCP, ELSEWHERE Marital Status Unknown Visit Id Visit Reason Foot injury - Minor; FOOT PAIN Specialty Enc Type Emergency Med Service Emergency Medicine Referred by Track Group AAKASHMonica ED Discharge 06/14/2017 7:45 PM Tracking Id [id number] Checkout 06/14/2017 7:45 PM Checkin 06/14/2017 6:17 PM Acuity 4 -Less Urgent Dispo Type * Discharged to Home or Self Care Arrival 06/14/2017 6:17 PM Reg Status LOS 000 01:28 Address: [address] [place] [phone] Comment: PROVIDER INFORMATION Provider Role Provider Contact Time CHAVA KUHN POUCH MAKER Nurse 06/14/17 18:44 CHU ADKINS MD ED Provider 06/14/17 18:52 ANDREW BROCK POUCH MAKER Nurse 06/14/17 19:21 DIAGNOSIS Sprain Foot Initial L Comment: PATIENT EDUCATION INFORMATION Instructions: SPRAIN FOOT Follow up: With: Address: When: Follow up with primary care in 1 week if not improving. Return to the ED for increasing pain or swelling. Within As Needed Source: [facility] POWERCHART Document Id: [id number] Andrew Brock R.N. - 06/14/2017 9:06 PM CDT ED Discharge Instructions [address] [address] Name: DILLAN MATA Date of : 1990 12:00 AM Visit Date: 06/14/2017 6:17 PM [facility] Number: [id number] Address: [address] [facility] [id number] Primary Care Provider: PCPBHARATHI IMPORTANT: [facility] in [place] would like to thank you for allowing [...] become cold, blue, numb, or tingly ?? [phone] [facility], [address] [place] [address]. All rights reserved. This information is not [...] if you dont have one. Go to [email or web address] and click on Create Your Account. Then, follow the directions to complete the online form. Youll be asked for your [facility] number which you can find at the [...] document has images extracted. Please consider using [employer] for all your patient education needs. Source: Pili Pop Document Id: [id number] Andrew Brock R.N. - 06/14/2017 7:45 PM CDT ED Disposition Summary ED Disposition Summary Entered On: 06/14/2017 20:33 CDT Performed On: 06/14/2017 19:45 CDT by ANDREW BROCK POUCH MAKER Disposition Summary Present in Room During Exam/Procedure : Alone Mode of Discharge : Ambulatory Transportation : Private vehicle Discharge From ED With : Home Med List Printed Discharge Instructions Given to Patient : Yes Patient Status at Discharge from ED : Improved 30 Minutes Critical Care : No ANDREW BROCK RN - 06/14/2017 20:33 CDT Source: [employer] Document Id: [id number] CDT!9 documented in this encounter Medications at [...] BROCK RN - 06/14/2017 21:05 CDT [facility] Document Id: [id number] CDT!18 Andrew Brock R.N. - 06/14/2017 7:30 [...] BROCK RN - 06/14/2017 22:10 CDT Source: [facility] POWERCHART Document Id: [id number] CDT!5 Andrew Brock R.N. - 06/14/2017 7:21 [...] ANDREW BROCK RN - 06/14/2017 19:21 CDT [place] Coma Eye Opening Response [place] : Spontaneously Best Verbal Response [place] : Oriented Best Motor Response Sophie : [...] BROCK RN - 06/14/2017 19:21 CDT [facility]: [facility] Document Id: [id number] CDT!37 Chu Adkins M.D. - 06/14/2017 6:52 [...] Stat, Patient Bed, Once, 06/14/2017 18:53 CDT, [facility] Urology. Radiology results:* Final Report * Reason [...] Transcribed by: ROSHAN Technologist: NAYANA ESPOSITO RT(R)(CT) [id number] This document has an image Result type: XR Foot Left 3 or more views Result date: June 14, 2017 19:14 CDT Result status: Auth (Verified) Result title: XR Foot Left 3 or more views Performed by: DAVID SEPULVEDA MD on June 14, 2017 19:18 CDT Verified by: DAVID SEPULVEDA MD on June 14, 2017 19:18 CDT Encounter info: [id number], [facility], Emergency, 06/14/2017 - . [...] ADKINS MD On: 06/14/2017 07:35 PM Source: [facility] POWERCHART Document Id: {[id number]} Chava Kuhn R.N. - 06/14/2017 6:37 PM [...] PNED ; Probability: 0 ; Diagnosis Code: [id number] Triage Triage Treatments : Ice to affected [...] Ambulatory Track : Trauma Other Languages : Samoan Vital Signs Assessed : Yes Treatments Prior [...] Pain Assessment Pain Symptoms : Yes CHAVA UKHN RN - 06/14/2017 18:37 CDT Pain Scale [...] CDT DCP GENERIC CODE Tracking Group : [facility] ED Tracking Acuity : 4 [...] Heart Rhythm : Regular Skin Color : [place] Skin Description : Normal Skin Temperature : [...] KUHN RN - 06/14/2017 18:37 CDT Source: [facility] [employer] Document Id: [id number] CDT!3 documented in this encounter Miscellaneous Notes Miscellaneous - Andrew Brock RHarish - 06/14/2017 7:45 PM CDT Valuables/Belongings Valuables/Belongings Entered On: 06/14/2017 20:33 CDT Performed On: 06/14/2017 19:45 CDT by ANDREW BROCK RN Valuables/Belongings Belongings Sent Home With : All sent w/pt at d/c Home Medication Disposition : None brought in with patient ANDREW BROCK RN - 06/14/2017 20:32 CDT Source: P[facility] [employer] Document Id: [id number] CDT!4 Miscellaneous - Conversion, Historical Provider Ser - 06/14/2017 7:45 PM CDT Coding Summary-Paper Based CODING DATE: 06/26/2017 FINAL AAKASH [place] [facility] STATUS: * Discharged to [...] LORD Date Saved: 06/26/2017 09:17 am Source: Pili Pop Document Id: [id number] documented in this encounter Plan of Treatment [...]
--- OUTSIDE RECORDS SUMMARY | 2022-05-31 19:39 | XMS_ITS | Encounter Summary ---
:1990 Author Organization [facility] Address [address] [place] [address] Care Team Providers Name Role Phone Elsewhere, Pcp Primary Care Provider Unavailable Reason for Visit Reason Comments Sore Throat SX: in ER Sunday with josiane st inflammation; st started Encounter Details Date Type Department Care Team Description 07/26/2019 [facility] (Primary Dx) [place], [place] [address], [address] [place] [address] [phone] (Wo rk) Social History Tobacco Use Types [...] or relatives? How often do you attend sikh or Never 2021 buddhism services? Do you belong to any clubs or No 11/20/2021 organizations such as sikh groups, unions, fraternal or athletic groups, or [...] or slept in a half-way (including now)? Sex Assigned at Date Recorded Female 12/02/2021 5:19 PM FLOOR RENOVATOR documented as of this encounter Last Filed [...] documented in this encounter Patient Instructions Patient InstructionsaMrio Savage P.A.-C. - 07/26/2019 9:45 AM CDT Push fluids and get plenty of rest. Tylenol or ibuprofen as needed for pain or fever. Gargles or lozenges as needed for comfort. See primary care provider in follow-up in 5 to 7 days if not improving, sooner if problems, to ED ifworsening. Maroi Savage P.A.-C. documented in this encounter Progress [...] Organization Address City/State/ZIP Code Phon e Number [place] [address] [place] [address] [facility], PCR, Point [...] Organization Address City/State/ZIP Code Phon e Number [place] [address] [place] [address] [facility] documented in this encounter Visit Diagnoses Diagnosis Pharyngitis Acute - Primary documented in this encounter Care Teams Asp Net Programmer Relationship Specialty Start Date End Date Elsewhere, Pcp PCP - General Family Medicine 01/08/18 01/12/21 documented as of this encounter
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
--- OUTSIDE RECORDS SUMMARY | 2022-05-31 19:39 | XMS_ITS | Encounter Summary ---
:1990 Author Organization [facility] Address [address] [place] [address] Care Team Providers Name Role Phone Elsewhere, [...] Type Department Care Team Description 07/29/2019 Emergency [place] [facility] Sigrid Forbes ontusion Left Lower Department D, MMaribellDMaribell Leg Initial (Primary [address] Dx) [place] [phone] (Wo rk) Social History Tobacco Use Types [...] or relatives? How often do you attend taoism or Never 2021 scientologist services? Do you belong to any clubs or No 11/20/2021 organizations such as taoism groups, unions, fraMainstream Energy or athletic groups, or school groups? How [...] at Date Recorded Female 12/02/2021 5:19 PM VENDOR MANAGER documented as of this encounter Last [...] clinic by calling the appointment center at [phone]. Thank you for choosing [facility] for your care. It was a pleasure taking care of you today in our Emergency Department. AttachmentsThe following attachments cannot be sent through Care Everywhere. Contusion Gbid-mb-Cako (Czech)documented in this encounter Medications at Time of Discharge Medication Sig Dispensed Refills Start Date End Date acetaminophen (TYLENOL Take by mouth as 0 08/11/2019 ORAL) needed. etonogestreL (NEXPLANON) 1 each by implant 0 12/2112/20/2021 68 mg subdermal implant route continuously. documented as of this encounter ED Notes Sigrid Forbes M.D. - 07/29/2019 4:50 PM CDT [facility] EM[facility]GENCY DEPART[facility] ENCOUNTER Patient Name: [...] of the incident with the reassuring ROS [facility], I do not feel that [...] CDT eGFR-Black/Afri >90 >=60 07/29/2019 NPRG can Afghan mL/min/BSA 6:50 PM CDT Comment: ----ADDITIONAL INFORMATION---- [...] Organization Address City/State/ZIP Code Phon e Number [facility]- [address] [place] [address] [address] [place] [address] [place] [address] [address] [facility] (ABNORMAL) CBC without Differential (07/29/2019 6:21 PM CDT) [facility] Method Time Signature Hemoglobin 13.2 11.6 - [...] Organization Address City/State/ZIP Code Phon e Number [facility]- [address] [place], [place] [address] [facility] [address] [facility] [address] DX Ankle [...] mg (TYLENOL) (COMPLETED) 1905 (Given - Provider: Rylei Lin R.N.) 650 mg, oral, Once, On [...] (Given - Provider: Gurdeep Persaud(Nicholas)(CT) - Comment: [id number]) 100 mL, intravenous, Once in imaging, co [...] 1651 documented in this encounter Care Teams Humidifier Maintenance Worker Relationship Specialty Start Date End Date Elsewhere, Pcp PCP - General Family Medicine 01/08/18 01/12/21 documented as of this encounter
--- OUTSIDE RECORDS SUMMARY | 2022-05-31 19:39 | XMS_ITS | Encounter Summary ---
:1990 Author Organization [facility] Address [address] [place] [address] Care Team Providers Name Role Phone Elsewhere, Pcp Primary Care Provider Unavailable Reason for Visit Reason Comments Sinus Symptoms ST, Cipriano ear pressure, conges tion; 3.5 wks ago Encounter Details Date Type Department Care Team Description 06/27/2019 Office Visit Urgent [facility] [place], [place] [address], [address] [place] [phone] (Wo rk) Social History Tobacco Use Types [...] do you attend mosque or Never 2021 latter-day services? Do you [...] at Date Recorded Female 12/02/2021 5:19 PM CAMP NURSE documented as of this encounter Last Filed [...] Sana Savage P.A.-C. documented in this encounter Progress [...] Primary documented in this encounter Care Teams Client Resource Specialist Relationship Specialty Start Date End Date Elsewhere, Pcp PCP - General Family Medicine 01/08/18 01/12/21 documented as of this encounter
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
--- OUTSIDE RECORDS SUMMARY | 2022-05-31 19:39 | XMS_ITS | Encounter Summary ---
:1990 Author Organization [facility] Address [address] [place] [address] Care Team Providers Name Role Phone Elsewhere, Pcp Primary Care Provider Unavailable Reason for Visit Reason Comments Nasal Congestion pt presents concerned for po ssible sinus infection. c/o of facial pain, congestion, ear pain a nd throat pain. symptoms for approx one month. denies fevers. has be en taking mucinex Encounter Details Date Type Department Care Team Description 03/28/2019 Emergency [place] [facility] Valerie Malone, Infec kori Upper Department M.DMaribell Respiratory (Primary [address] Dx) [place] [phone] Social History Tobacco Use Types Packs/Day Years [...] do you attend mormon or Never 2021 protestant services? Do you [...] at Date Recorded Female 12/02/2021 5:19 PM RESCUE WORKER documented as of this encounter Last [...] mouth daily with dinner. For 9 weeks. azithromycin (ZITHROMAX) 500 mg on day 1, 6 tablet 0 03/2804/02/2019 250 mg tablet followed by 250 mg once daily for 4 days. documented as of this encounter ED [...] Primary documented in this encounter Care Teams Training And Development Director Relationship Specialty Start Date End Date Elsewhere, Pcp PCP - General Family Medicine 01/08/18 01/12/21 documented as of this encounter
--- OUTSIDE RECORDS SUMMARY | 2022-05-31 19:39 | XMS_ITS | Encounter Summary ---
:1990 Author Organization [facility] Address [address] [place] [address] Care Team Providers Name Role Phone Elsewhere, Pcp Primary Care Provider Unavailable Reason for Visit MRI/CAT/PET Scan (Routine) - Closed Specialty Diagnoses / Procedures Referred By Contact Refer red To Contact Radiology Diagnoses Pain Cervical Esther Andrea, PUMP INSTALLATION AND SERVICER, [facility] Region Procedures CT Cervical Spine without IV Contrast C.N.P., D.N.P. [address] [place] [address] Referral ID Status Reason Start Date Expiration Date Visits Requ ested Visits Authorized [id number] Closed 08/01/2019 07/31/2020 1 1 Encounter Details Date Type Department Care Team Description 08/01/2019 Hospital Encounter Department of Radiology Eliazar Andrea britt, in [facility] FATOU, C.N.P., [address] [place], [place] [phone] [place] [phone] [place] [phone] Social History Tobacco Use Types Packs/Day Years [...] do you attend zoroastrian or Never 2021 adventism services? Do you belong to any clubs or No 11/20/2021 organizations such as zoroastrian groups, unions, fraBioTime or athletic groups, or school groups? How [...] Date Recorded Female 12/02/2021 5:19 PM PRINCIPAL BIOINFORMATICS SPECIALIST documented as of this encounter Medications [...] N/A Computed Tomography ARZ LOS, Neuroradiology [facility] Specimen (Source) Anatomical Collection Method Collection Time [...] on filedocumented in this encounter Care Teams Filter Cleaner Relationship Specialty Start Date End Date Elsewhere, Pcp PCP - General Family Medicine 01/08/18 01/12/21 documented as of this encounter
--- OUTSIDE RECORDS SUMMARY | 2022-05-31 19:39 | XMS_ITS | Encounter Summary ---
:1990 Author Organization [facility] Address [address] [place] [address] Care Team Providers Name Role Phone Elsewhere, Pcp Primary Care Provider Unavailable Reason for Referral Outpatient (Routine) - Closed Specialty Diagnoses / Procedures Referred By Contact Refer red To Contact Family Medicine Ben Arce M.D. [facility] Region [address] [place] [address] Referral ID Status Reason Start Date Expiration Date Visits Requ ested Visits Authorized [id number] Closed 01/28/2019 01/28/2020 1 1 Reason for Visit Reason Comments Follow-up Sprain knee Encounter Details Date Type Department Care Team Description 01/28/2019 Comprehensive Visit Department of Ben Metzger, Pain Knee Left (Primary Dx); [facility]; [place], [place] [address] Thrombosis Superficial Vein Lower Extremity Left [address] [place] [phone] Social History Tobacco Use Types Packs/Day Years [...] do you attend temple or Never 2021 yazidi services? Do you belong to any clubs or No 11/20/2021 organizations such as temple groups, unions, [employer] or athletic groups, or school groups? How [...] Date Recorded Female 12/02/2021 5:19 PM CARE TRANSITIONS MANAGER documented as of this encounter Last [...] Name Type Priority Associated Diagnoses Order S [facility] Medicine Outpatient Referral Routine Expec taurus: office [...] Leg documented in this encounter Care Teams Stem Cleaning Machine Feeder Relationship Specialty Start Date End Date Elsewhere, Pcp PCP - General Family Medicine 01/08/18 01/12/21 documented as of this encounter
--- OUTSIDE RECORDS SUMMARY | 2022-05-31 19:39 | XMS_ITS | Encounter Summary ---
:1990 Author Organization [facility] Address [address] [place] [address] Care Team Providers Name Role Phone Elsewhere, Pcp Primary Care Provider Unavailable Encounter Details Date Type Department Care Team Description 01/28/2019 Hospital Encounter Department of Radiology, Ben Arias M.D. [place] [address] [address] [place], [place] [facility] [address] [place] [address] [phone] Social History Tobacco Use Types Packs/Day Years [...] do you attend religious or Never 2021 methodist services? Do you [...] at Date Recorded Female 12/02/2021 5:19 PM CROWNING INSPECTOR documented as of this encounter Medications at [...] on filedocumented in this encounter Care Teams Pricing Manager Relationship Specialty Start Date End Date Elsewhere, Pcp PCP - General Family Medicine 01/08/18 3 documented as of this encounter
--- OUTSIDE RECORDS SUMMARY | 2022-05-31 19:39 | XMS_ITS | Encounter Summary ---
:1990 Author Organization [facility] Address [address] [place] [address] Care Team Providers Name Role Phone Elsewhere, Pcp Primary Care Provider Unavailable Encounter Details Date Type Department Care Team Description 01/28/2019 Hospital Encounter Department of Radiology Ben Arce M.D. Edema Leg in [place], [place] [address] [place] [phone] Social History Tobacco Use Types Packs/Day Years [...] or relatives? How often do you attend anabaptist or Never 2021 confucianist services? Do you belong to any clubs or No 11/20/2021 organizations such as anabaptist groups, unions, fraternal or athletic groups, or [...] at Date Recorded Female 12/02/2021 5:19 PM DRY HEAT CABINET ATTENDANT documented as of this encounter Medications at [...] Leg documented in this encounter Care Teams Aircraft Dispatcher Relationship Specialty Start Date End Date Elsewhere, Pcp PCP - General Family Medicine 01/08/18 01/12/21 documented as of this encounter
--- OUTSIDE RECORDS SUMMARY | 2022-05-31 19:39 | XMS_ITS | Encounter Summary ---
:1990 Author Organization [facility] Address [address] [place] [address] Care Team Providers Name Role Phone Elsewhere, Pcp Primary Care Provider Unavailable Reason for Visit Reason Comments Headache frontal and middle of head Earache Cipriano ear pain Sore Throat drainage Sinus Problem over 1 month Encounter Details Date Type Department Care Team Description 01/07/2018 Office Visit Express Care in [facility] Janel DoddCanal [place], [place] FATOU Samuel, C.N.P., (Primary Dx) [address] [place] [address] Social History Tobacco Use Types Packs/Day Years [...] do you attend cheondoism or Never 2021 jehovah's witness services? Do [...] slept in a long term (including now)? Sex Assigned at Date Recorded Female 12/02/2021 5:19 PM BOWLING ALLEY REFINISHER documented as of this encounter Last Filed [...] who goes to preschool. She works at [employer] with several people throughout theday. She has [...] Primary documented in this encounter Care Teams Tool Crib Lead Relationship Specialty Start Date End Date Elsewhere, Pcp PCP - General Family Medicine 01/08/18 01/12/21 documented as of this encounter
--- OUTSIDE RECORDS SUMMARY | 2022-05-31 19:39 | XMS_ITS | Encounter Summary ---
:[address] [facility] Address [address] [place] [address] Care Team Providers Name Role Phone Elsewhere, Pcp Primary Care Provider Unavailable Reason for Visit Reason Comments Sinus Symptoms 30 + days ago Encounter Details Date Type Department Care Team Description 12/12/2018 Office Visit Express Care in [facility] Mario Savage, Inf ection [place], [place] P.A.-C. Respiratory (Primary [address], Dx) [facility] [address] [place], [place] [phone] (Wo rk) Social History Tobacco Use Types [...] or relatives? How often do you attend sabianism or Never 2021 synagogue services? Do you belong to any clubs or No 11/20/2021 organizations such as sabianism groups, unions, fraternal or athletic groups, or [...] at Date Recorded Female 12/02/2021 5:19 PM LEASING REPRESENTATIVE documented as of this encounter Last Filed Vital Signs Vital Sign Reading Time Taken Comments Blood Pressure 136/92 12/12/2018 7:15 PM LEASING REPRESENTATIVE Pulse 86 12/12/2018 7:15 PM LEASING REPRESENTATIVE Temperature 36.9 ??C (98.4 ??F) 12/12/2018 7:15 PM LEASING REPRESENTATIVE Respiratory Rate - - Oxygen Saturation 96% 12/12/2018 7:15 PM LEASING REPRESENTATIVE Inhaled Oxygen Concentration - - Weight 72 kg (158 lb 11.7 oz) 12/12/2018 7:15 PM LEASING REPRESENTATIVE Height - - Body Mass Index 31 10/31/2018 6:04 PM LEASING REPRESENTATIVE documented in this encounter Patient Instructions Patient [...] urgent care if worsening. Mario Savage P.A.-C. ING REPRESENTATIVE documented in this encounter Progress Notes Mario [...] urgent care if worsening. Mario Savage P.A.-C. ING REPRESENTATIVE documented in this encounter Plan of Treatment Not on filedocumented as of this encounter Visit Diagnoses Diagnosis Infection Upper Respiratory - Primary documented in this encounter Care Teams Medicare Coordinator Relationship Specialty Start Date End Date Elsewhere, Pcp PCP - General Family Medicine 01/08/18 01/12/21 documented as of this encounter
--- OUTSIDE RECORDS SUMMARY | 2022-05-31 19:39 | XMS_ITS | Encounter Summary ---
:1990 Author Organization [facility] Address [address] [place] [address] Care Team Providers Name Role Phone Elsewhere, Pcp Primary Care Provider Unavailable Reason for Visit Reason Comments PAYAL has had symptoms for 3-4 we eks Muscle Pain chest and back -05/31, has been using ibuprofen Encounter Details Date Type Department Care Team Description 10/31/2018 Emergency [place] [facility] Valerie Malone, Infec kori Upper Department MMaribellDMaribell Respiratory (Primary [address] Dx) [place] [phone] Social History Tobacco Use Types Packs/Day Years [...] do you attend moravian or Never 2021 confucianist services? Do you [...] at Date Recorded Female 12/02/2021 5:19 PM SALES SOLUTIONS REPRESENTATIVE documented as of this encounter Last Filed Vital Signs Vital Sign Reading Time Taken Comments Blood Pressure 134/95 10/31/2018 6:52 PM SALES SOLUTIONS REPRESENTATIVE Pulse 81 10/31/2018 6:06 PM SALES SOLUTIONS REPRESENTATIVE Temperature 37.2 ??C (99 ??F) 10/31/2018 6:52 PM SALES SOLUTIONS REPRESENTATIVE Respiratory Rate 20 10/31/2018 6:06 PM SALES SOLUTIONS REPRESENTATIVE Oxygen Saturation 98% 10/31/2018 6:06 PM SALES SOLUTIONS REPRESENTATIVE Inhaled Oxygen Concentration - - Weight 73.3 kg (161 lb 9.6 oz) 10/31/2018 6:04 PM SALES SOLUTIONS REPRESENTATIVE Height 152.4 cm (5') 10/31/2018 6:04 PM SALES SOLUTIONS REPRESENTATIVE Body Mass Index 31.56 10/31/2018 6:04 PM SALES SOLUTIONS REPRESENTATIVE documented in this encounter Discharge Instructions AttachmentsThe following attachments cannot be sent through Care Everywhere. Upper Respiratory Infection Adult Ecum-xy-Plhk (Maltese)documented in this encounter Medications at Time of Discharge Medication Sig Dispensed Refills Start Date End Date etonogestreL (NEXPLANON) 1 each by implant 0 12/2112/20/2021 68 mg subdermal implant route continuously. ibuprofen Take 600 mg by mouth 0 11/2018 (for_ADVIL,MOTRIN) 200 mg every 6 (six) hours capsule as needed for pain. albuterol (PROVENTIL Inhale 2 puffs every 1 Inhaler 1 10/3107/29/2019 HFA,VENTOLIN HFA) 90 6 (six) hours as mcg/actuation inhaler needed for wheezing. documented as of this encounter ED Notes Valerie Maolne M.D. - 10/31/2018 6:38 PM CST SUBJECTIVE [...] Upper Respiratory Valerie Malone M.D. 10/31/18 1840 S SOLUTIONS REPRESENTATIVE documented in this encounter Plan of Treatment Not on filedocumented as of this encounter Visit Diagnoses Diagnosis Infection Upper Respiratory - Primary documented in this encounter Care Teams Water Supervisor Relationship Specialty Start Date End Date Elsewhere, Pcp PCP - General Family Medicine 01/08/18 01/12/21 documented as of this encounter
--- OUTSIDE RECORDS SUMMARY | 2022-05-31 19:39 | XMS_ITS | Encounter Summary ---
:1990 Author Organization [facility] Address [address] [place] [address] Care Team Providers Name Role Phone Elsewhere, Pcp Primary Care Provider Unavailable Reason for Visit Reason Comments Follow-up Outpatient (Routine) - Closed Specialty Diagnoses / Procedures Referred By Contact Refer red To Contact Family Medicine Ben Arce M.D. [facility] Region [address] [place] [address] Referral ID Status Reason Start Date Expiration Date Visits Requ ested Visits Authorized [id number] Closed 01/28/2019 01/28/2020 1 1 Encounter Details Date Type Department Care Team Description 02/11/2019 Office Visit Department of Ben Metzger M.D. Thrombosis Superficial Medicine in [facility] [address] Vein Lower Extremity [place], [place] Left (Primary Dx) [address] [address] [place], [place] [phone] (Work) [phone] Social History Tobacco Use Types Packs/Day Years [...] do you attend nondenominational or Never 2021 sikh services? Do you belong to any clubs [...] at Date Recorded Female 12/02/2021 5:19 PM MUSICIAN INSTRUMENTAL documented as of this encounter Last Filed [...] Primary documented in this encounter Care Teams Collar Fuser Relationship Specialty Start Date End Date Elsewhere, Pcp PCP - General Family Medicine 01/08/18 01/12/21 documented as of this encounter
--- OUTSIDE RECORDS SUMMARY | 2022-05-31 19:39 | XMS_ITS | Encounter Summary ---
:1990 Author Organization [facility] Address [address] [place] [address] Care Team Providers Name Role Phone Elsewhere, Pcp Primary Care Provider Unavailable Reason for Visit Reason Comments Sore Throat pt with 2 1/2 week history o f sinus congestion now presents with sore throat. Throat pain started about 4 days ago, and is getting worse every day. Encounter Details Date Type Department Care Team Description 09/22/2018 Emergency [place] [facility] Marissa Mccormack, Catie lawsonnicole Acute Department D.O. (Primary Dx) [address] [place] [phone] Social History Tobacco Use Types Packs/Day Years [...] do you attend buddhist or Never 2021 bahai services? Do you [...] Date Recorded Female 12/02/2021 5:19 PM LINE CREWMAN documented as of this encounter Last Filed Vital Signs Vital Sign Reading Time Taken Comments Blood Pressure 128/88 09/22/2018 9:00 AM LINE CREWMAN Pulse 88 09/22/2018 9:00 AM LINE CREWMAN Temperature 37.5 ??C (99.5 ??F) 09/22/2018 9:00 AM LINE CREWMAN Respiratory Rate 16 09/22/2018 9:00 AM LINE CREWMAN Oxygen Saturation 99% 09/22/2018 9:00 AM LINE CREWMAN Inhaled Oxygen Concentration - - Weight 71.9 kg (158 lb 8.2 oz) 09/22/2018 8:10 AM LINE CREWMAN Height 157 cm (5' 1.81) 09/22/2018 8:10 AM LINE CREWMAN Body Mass Index 29.17 09/22/2018 8:10 AM LINE CREWMAN documented in this encounter Discharge Instructions Discharge InstructionsBuMarissa lopez D.O. - 09/22/2018 8:59 AM CST Take the steroids daily, and take ibuprofen and/or tylenol as needed for pain. You should return to the ED for dehydration, if you are more swollen, have difficulty breathing or cannot swallow. CREWMAN AttachmentsThe following attachments cannot be sent through Care Everywhere.Sore Throat (Japanese)documented in this encounter Medications at Time of Discharge Medication Sig Dispensed Refills Start Date End Date etonogestreL (NEXPLANON) 1 each by implant 0 12/2112/20/2021 68 mg subdermal implant route continuously. ibuprofen Take 600 mg by mouth 0 11/2018 (for_ADVIL,MOTRIN) 200 mg every 6 (six) hours capsule as needed for pain. predniSONE (DELTASONE) 20 Take 2 tablets (40 10 tablet 0 09/27/2018 mg tablet mg total) by mouth daily for 5 days. documented as of this encounter [...] Pharyngitis Acute Marissa Mccormack D.O. 09/22/18 0917 CREWMAN documented in this encounter Plan of Treatment Not on filedocumented as of this encounter Procedures Procedure Name Priority Date/Time Associated Diagnosis Comme nts RAPID STREP A STAT 09/22/2018 8:37 AM Results for this SCREEN LINE CREWMAN procedure are i n the results section. BACTERIAL CULTURE, STAT 09/22/2018 8:37 AM Res ults for this THROAT LINE CREWMAN procedure are i n the results section. documented in this encounter Results Bacterial Culture, Throat (09/22/2018 8:37 AM LINE CREWMAN) [facility] Method Time Signature Throat No growth of 09/24/2018 [facility] Culture Streptococcus 7:07 AM LINE CREWMAN HEALTH pyogenes [facility] Specimen Anatomical Collection Method Collection Time Receive d Time (Source) Location / / Volume Laterality Throat Swab 09/22/2018 8:37 AM 8 3:28 LINE CREWMAN PM LINE CREWMAN Marissa Mccormack D.O. LAB MICROBIOLOGY - GENERAL O RDERABLES Performing Organization Address City/State/ZIP Code Phon e Number [facility] [address] [place] [address] LAB Rapid Strep A Screen (09/22/2018 8:37 AM LINE CREWMAN) P athologist Signature Rapid Strep A Negative Negative 09/22/2018 [facility] Screen 8:52 AM [facility] LAB Specimen Anatomical Collection Method Collection Time Receive d Time (Source) Location / / Volume Laterality Varies (Throat) 09/22/2018 8:37 AM 2017 8:41 LINE CREWMAN AM LINE CREWMAN Marissa Mccormack D.O. LAB MICROBIOLOGY - GENERAL O RDERABLES Performing Organization Address City/State/ZIP Code Phon e Number [address] [address] [facility] documented in this encounter Visit Diagnoses Diagnosis Pharyngitis Acute - Primary documented in this encounter Care Teams Rn Traveling Relationship Specialty Start Date End Date Elsewhere, Pcp PCP - General Family Medicine 01/08/18 01/12/21 documented as of this encounter
[2022-05-31 19:54] VITALS: BP 133/93; PULSE 88; PULSE 89; O2SAT 94
[2022-05-31 19:55] VITALS: PULSE 90; TEMP 37.2; O2SAT 97
[2022-05-31 20:10] VITALS: BP 120/79; PULSE 87
[2022-05-31 20:28] LABS: Hematocrit 34.5 % (33.0-51.0); Hemoglobin* 11.9 gm/dL (12.0-16.0); Mean Corpuscular HGB Conc 35 gm/dL (32-36); Mean Corpuscular Hemoglobin 29 pg (26-34); Mean Corpuscular Volume 85 fL (80-100); Platelet Count* 224 K/uL (140-440); Red Blood Count 4.05 m/uL (4.00-5.20); White Blood Count* 12.27 K/uL (4.50-11.00)
[2022-05-31 20:28] LABS: Appearance Urine Clear (Clear); Bilirubin Urine Negative (Negative); Blood Urine Negative (Negative); Color Urine Yellow (Yellow); Glucose Urine Negative (Negative); Ketones Urine 1+ (Negative); Leukocyte Esterase Urine Negative (Negative); Nitrite Urine Negative (Negative); Protein Urine Negative (Negative); Urobilinogen Urine 0.2 (0.2-1.0)
[2022-05-31 20:32] LABS: Slide Review Reflex No
[2022-05-31 20:33] LABS: Clue Cells <20% Clue Cells Seen (None Seen); Trichomonas No Trichomonas Seen (None Seen); Yeast No Yeast Seen (None Seen)
[2022-05-31 20:44] LABS: Alanine Aminotransferase* 11 U/L (4-35); Aspartate Amino Transferase* 20 U/L (12-35); Blood Urea Nitrogen* 6 mg/dL (5-24); Creatinine* 0.5 mg/dL (0.5-1.5); Estimated Glomerular Filt Rate 127 ml/min
[2022-05-31 20:44] LABS: Total Protein Urine 6 mg/dL
[2022-05-31 20:45] LABS: Creatinine Urine 146.5 mg/dL
[2022-05-31 21:10] LABS: Fetal Fibronectin* Negative (Negative)
--- NOTE | 2022-05-31 21:49 | PC.OBNST ---
NST Note NST Note Start: 05/31/22 19:47 Freq: ONCE Status: Active Protocol: Document 05/31/22 21:45 SHIRLEY (Rec: 05/31/22 21:48 SHIRLEY [id number]) NST Note 3 Para (# of births) 1 EDC 08/14/22 High Risk Factors High Blood Pressure - Gestational,Diabetes - Gestational Diet Controlled, History of Labor/ Delivery Patient Presented with Complaint(s) of Contractions/cramping,Pain Other Complaints Patient feeling sharp pain on upper left side of abdomen. Reactive Yes Appropriate for Gestational Age Yes KATHI Merida Date 05/31/22 Reactive Yes Appropriate for Gestational Age Yes KATHI Rao Date 05/31/22 OB NST charge Yes Complete NST Note via Write Note Yes The provider's electronic signature indicates the NST is reactive/appropriate for gestational age. *Note to provider: If an addendum is required, open the patient's chart and click on the note under the Nurse/Allied Health tab.
== END 2022-05-31 21:58 | disposition home or self-care (01) ==
LOC: OB OUT 19:34 → OB 21:42
PROVIDERS: Visit Provider Advanced Practice Midwife
DX: O24.419 Gestational diabetes mellitus in pregnancy, unspecified control (principal)
CPT/HCPCS: 36415; 59025; 81003; 82565; 82570; 84112; 84156; 84450; 84460; 84520; 85027; 87210; 99213

== ENCOUNTER 2022-06-18 19:04 | Outpatient (CLI) | payer MEDICAID, SELFPAY ==
[2022-06-18] VITALS (66 sets, daily range): BP systolic 118–149; BP diastolic 70–92; PULSE 71–102; RESP 18; TEMP 36.4–37; O2SAT 90–100; BMI 27.3
--- OUTSIDE RECORDS SUMMARY | 2022-06-18 19:26 | XMS_ITS | Encounter Summary ---
:1990 Author Organization [facility] Address [address] [place] [address] Care Team Providers Name Role Phone Ben Arce M.D. Primary Care Provider Encounter Details Date Type Department Care Team Description 03/31/2022 Hospital Encounter Department of Cheikh Gautam Laboratory Medicine Minoo Garcia ([facility]) in [place], [place] [address] [place] [phone] Social History Tobacco Use Types Packs/Day Years [...] do you attend yazdanism or Never 2021 taoist services? Do you belong to any clubs [...] at Date Recorded Female 12/02/2021 5:19 PM PRODUCT SAFETY ASSOCIATE documented as of this encounter Medications at [...] for this RATIO, RANDOM, URINE PM CDT ([facility]) proc edure are in the [...] M.D. LAB URINE ORDERABLES Performing Organization Address City/[facility]/ZIP Code Phon e Number [place] [address] [place], [place] [address] [facility] [place] [address] ALT (Alanine Aminotransferase) (03/31/2022 5:31 [...] M.D. LAB BLOOD ADD-ON Performing Organization Address City/[facility]/ZIP Code Phon e Number [place] [address] [place], [place] [address] [facility] [place] [address] AST (Aspartate Aminotransferase) (03/31/2022 5:31 [...] M.D. LAB BLOOD ADD-ON Performing Organization Address City/[facility]/ZIP Code Phon e Number [address] [address] [facility] [place] [address] (ABNORMAL) Creatinine with Estimated GFR (03/31/2022 5:31 PM CDT) Analysis Performed At Patho logist Time Signature Creatinine 0.58 (L) 0.59 - 03/31/2022 NPR[place] 1.04 mg/dL 5:59 PM CDT eGFR-Black/Afri >90 >=60 03/31/2022 NPRG can Namibian mL/min/BSA 5:59 PM CDT Comment: ----ADDITIONAL INFORMATION---- [...] [facility]- [address] [place], [place] [address] [place] [address] [place] [address] [facility] [address] [place] documented in this encounter Visit Diagnoses Diagnosis High Risk (HCC) documented in this encounter Additional Health Concerns Assessment Noted Time PHQ-9 Depression Total Score: 4 12/20/2021 10:52 AM CS T documented as of this encounter Care Teams Break Out Worker Relationship Specialty Start Date End Date Ben Arce M.D. PCP - General Family Medicine 01/13/[address] [place] [phone] documented as of this encounter
--- OUTSIDE RECORDS SUMMARY | 2022-06-18 19:26 | XMS_ITS | Encounter Summary ---
:1990 Author Organization [facility] Address [address] [place] [address] Care Team Providers Name Role Phone Ben Arce M.D. Primary Care Provider Reason for Visit Reason Comments Hand Injury Encounter Details Date Type Department Care Team Description 02/11/2022 Emergency [place] [facility] Sigrid Forbes ontusion Hand Initial Department DMinoo Right (Primary Dx) [address] [place] [address] [phone] (Wo rk) Social History Tobacco Use Types [...] do you attend moravian or Never 2021 hinduism services? Do you [...] or slept in a detention (including now)? Education Answer Date Recorded What is the highest level of school you have completed or 12 th grade 05/17/2021 the highest degree you have received? Sex Assigned at Date Recorded Female 12/02/2021 5:19 PM WEDDING TRANSPORTATION DRIVER documented as of this encounter Last [...] clinic by calling the appointment center at [phone]. Thank you for choosing [facility] for your care. It was a pleasure taking care of you today in our Emergency Department. AttachmentsThe following attachments cannot be sent through Care Everywhere.Hand Contusion [id number] (Armenian)documented in this encounter Medications at Time of [...] Forbes M.D. - 02/11/2022 9:44 PM CDT [facility] EM[facility]GENCY DEPARTMENT ENCOUNTER Patient Name: Lulu Mata PCP: Ben Arce M.D. SUBJECTIVE CHIEF COMPLAINT/REASON FOR VISIT Hand Injury HISTORY OF PRESENT ILLNESS Lulu Mata is a 31 y.o. female presenting with right hand pain. She was at the [facility] today when her hand was shut into [...] documented as of this encounter Care Teams Superintendent Overhead Distribution Relationship Specialty Start Date End Date Ben Arce M.D. PCP - General Family Medicine 01/13/[address] [place] [phone] documented as of this encounter
--- OUTSIDE RECORDS SUMMARY | 2022-06-18 19:26 | XMS_ITS | Encounter Summary ---
:1990 Author Organization [facility] Address [address] [place] [address] Care Team Providers Name Role Phone Ben Arce M.D. Primary Care Provider Reason for Visit Reason Comments Vomiting During Auth/Cert Specialty Diagnoses / Procedures Referred By Contact Refer red To Contact Diagnoses Procedures Referral ID Status Reason Start Date Expiration Date Visits Requ ested Visits Authorized [id number] 1 1 Encounter Details Date Type Department Care Team Description 06/12[facility]2022 [facility], [address] [place], [place] [address] [place] [phone] [place], [place] [phone] (Wo rk) [phone] Social History Tobacco Use Types Packs/Day Years [...] or relatives? How often do you attend baptism or Never 2021 temple services? Do you belong to any clubs or No 11/20/2021 organizations such as baptism groups, unions, fraternal or athletic groups, or [...] at Date Recorded Female 12/02/2021 5:19 PM DRAG OUT WORKER documented as of this encounter Last Filed Vital Signs Vital Sign Reading Time Taken Comments Blood Pressure 117/80 06/12/2022 11:12 AM CDT Pulse 86 06/12/2022 11:12 AM CDT Temperature 36.2 ??C (97.2 ??F) 06/12/2022 11:12 AM CDT Respiratory Rate 16 06/12/2022 11:12 AM CDT Oxygen Saturation 96% 06/12/2022 11:12 AM CDT Inhaled Oxygen Concentration - - Weight - - Height - - Body Mass Index - - documented in [...] atal) tablet documented as of this encounter Nursing Notes Marcelle Linn R.N. - 06/12/2022 12:06 PM CDT Pt is a at 31+0/7 week gestation presented to OB with complaints of nausea and vomiting. Deniedany visual changes, epigastric pain, headache, and edema. Patient did say her left leg is usually more swollen than her right, but no swelling noted on examination. No vomiting since prior to arrival but was at home for roughly 2 hours earlier this morning. Patient verbalized they get lightheaded but only slightly with quick movements or after waking up from sleep. VVS. FHR was persistent category 2 d/t a few variable decels, however, moderate variability and 15 x 15 accelerations noted. No UTC's traced via [place] and patient denied feeling any or pain. Dr. Mcdowell came up to the unit to assess patient. Patient ate some snacks and drank water, toleratedwell and nausea improved. OK to discharge per MD, with appointment to be scheduled with pt's primary care provider. Per patient, she already has an appointment on Sunday with her PCP in [place]. Education provided on staying hydrated and how to managed nausea at home. All questions addressed at this time. Electronically signed by: Marcelle Linn R.N. 06/12/22 12:37 PM CDT documented in this encounter Plan of Treatment Not on filedocumented as of this encounter Procedures Procedure Name Priority Date/Time Associated Diagnosis Comme nts GLUCOSE POCT, B Routine 06/12/2022 10:50 AM Resul ts for this CDT procedure are i n the results section. documented in this encounter Results Glucose, POCT (06/12/2022 10:50 AM CDT) P athologist Signature Glucose, POCT, 87 70 - 140 06/12/2022 NPRG B mg/dL 10:50 AM CDT Specimen Anatomical Collection Method Collection Time Receive d Time (Source) Location / / Volume Laterality Blood 06/12/2022 10:50 06/12/2022 AM CDT 10:57 AM CDT Generic [place] LAB POCT ORDERABLES-MANUAL Performing Organization Address City/State/ZIP Code Phon e Number [facility]- [address] [place], [place] [address] [place] [facility] NPRG [facility] [place] [address] [facility] [address] documented in this encounter Visit Diagnoses Not on filedocumented in this encounter Additional Health Concerns Assessment Noted Time PHQ-9 Depression Total Score: 4 12/20/2021 10:52 AM CS T documented as of this encounter Care Teams Senior Specialist Relationship Specialty Start Date End Date Ben Arce M.D. PCP - General Family Medicine 01/13/[address] [place] [phone] documented as of this encounter
--- OUTSIDE RECORDS SUMMARY | 2022-06-18 19:26 | XMS_ITS | Encounter Summary ---
:1990 Author Organization [facility] Address [address] [place] [address] Care Team Providers Name Role Phone Ben [...] Expiration Date Visits Requ ested Visits Authorized [id number] 1 1 Encounter Details Date Type Department Care Team Description 04/17/2022 Hospital Encounter [facility] Rylie Mcdowell, 23 Weeks Gestation [facility], [place] [id number] [address] [place], [place] [phone] [address] (Work) [phone] Social History Tobacco Use Types Packs/Day Years [...] do you attend moravian or Never 2021 tenriism services? 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 No UTC's traced via [place]. RN palpated during one episode ofuterine cramping, [...] documented as of this encounter Care Teams Cable Testers Helper Relationship Specialty Start Date End Date Ben Arce M.D. PCP - General Family Medicine 01/13/[address] [place] [phone] documented as of this encounter
--- OUTSIDE RECORDS SUMMARY | 2022-06-18 19:26 | XMS_ITS | Clinical Summary ---
:1990 Author Organization [facility] Address [address] [place] [address] Care Team Providers Name Role Phone Ben Arce M.D. Primary Care Provider Source Comments Patient records contain information from all sites at [facility]. For routine questions regarding patient records, call [phone] during business hours, M-F 8:00 AM - 5:00 PM Central Time. Record requests for emergency care only can be directed to [phone] at any time.[facility] Allergies Active Allergy Reactions Severity Noted Date Comments Simonton Pollen Itching, Wheezing 04/17/2022 Medications Medication Sig [...] COVID complete but needs b ooster/Flu declines Sales Representative Printing: Pap NIL w/ neg HPV 11/2021 Aneuploidy [...] told me she is transferr ing to [place] because it is closer. History Of Falling [...] Encounters Date Type Specialty Care Team Description 06/12/2022 Hospital Encounter Labor and Delivery Rylie Mcdowell M.D. 04/28/2022 Hospital Encounter Labor and Delivery Rylie Mcdowell, En counter For Minoo Supervision Of Normal Pregnanc y Unspecified Trimester ([facility]) 04/18/2022 Routine Obstetrics and Rylie Mcdowell, 23 Weeks Gestation Gynecology MGonzalez ([facility]) (Primary Dx) 04/17/2022 Hospital Encounter Labor and Delivery Rylie Mcdowell, 23 Weeks Gestation M.DMaribell (HCC) 03/31/2022 Hospital Encounter Laboratory Medicine Cheikh Gautam High Risk Minoo Garcia ([facility]) 03/27/2022 Routine Obstetrics and Cheikh Gautam High Ri sk ([facility]) (Primary Dx); Gynecology Minoo Garcia Encounter For S upervision Of Normal Unspecified Trimester ([facility]) 03/27/2022 Ancillary Procedure Obstetrics and Cheikh Gautam Enco unter For Gynecology Minoo Garcia Supervision Of Other Normal Pregnanc y Unspecified Trimester ([facility]) from Last 3 Months Immunizations Name Administration [...] do you attend methodist or Never 2021 jainism services? 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 Last Filed Vital Signs Vital Sign Reading [...] 2022 07/10/2012, 07/10/2012, 09/08/2003, Additional history exists Cervical Cancer Screening 11/24/2026 11/24/2021, 11/24/2021 , 09/23/2015 (Performed elsewhere) DTaP,Tdap,and Td Vaccines 06/02/2032 06/02/2022, 09/03/2012 , (8 - Td or Tdap) 10/03/2000, Additional history exists Hepatitis B Vaccines Completed 02/22/2001, 02/22/2001, 02/22/2001, Additional history exists Depression Screening Completed 12/20/2021 (Annual PHQ-2) Pneumococcal vaccine (0-64 Aged Out No lo nger eligible years) based on patient 's age to complete this topic Medical Devices Implanted Type Area Painter Chassis Device Shelf Model / Identifier Expiration Serial / Date Lot Gynecologic Gynecologic Left: Other Other Arm Procedures Procedure Name Priority Date/Time Associated Comments Diagnosis GLUCOSE POCT, B Routine 06/12/2022 Results for 10:50 AM CDT this procedure are in the results section. URINALYSIS WITH Timed 04/28/2022 9:09 Results f [...] Trimester (HCC) from Last 3 Months Results Glucose, POCT (06/12/2022 10:50 AM CDT) P athologist Signature Glucose, POCT, 87 70 - 140 06/12/2022 NPRG B mg/dL 10:50 AM CDT Specimen Anatomical Collection Method Collection Time Receive d Time (Source) Location / / Volume Laterality Blood 06/12/2022 10:50 06/12/2022 AM CDT 10:57 AM CDT Generic [facility] LAB POCT ORDERABLES-MANUAL Performing Organization Address City/State/ZIP Code Phon e Number [facility]- [facility] [address] [place] [address] [facility] [address] [place] (ABNORMAL) Urinalysis with Microscopic: Urine, Midstream (04/28/2022 [...] 8.0 04/28/2022 11:36 AM CDT NPRG Specific [place] 1.015 1.001 - 1.035 04/28/2022 11:36 AM [...] Organization Address City/State/ZIP Code Phon e Number [facility]- [address] [place] [address] [place] [address] [place] [address] [address] [facility] Influenza A/B, SARS CoV-2, PCR, Rapid, Varies (04/28/2022 8:48 AM CDT) [facility] Method Time Signature Influenza A, Negative Negative 04/28/2022 NPRG PCR, Rapid, V 9:26 AM CDT Influenza B, Negative Negative 04/28/2022 NPRG PCR, Rapid, V 9:26 AM CDT SARS CoV-2, Undetected Undetected 04/28/2022 NPRG PCR, Rapid, V 9:26 AM CDT Comment: ----ADDITIONAL INFORMATION---- This RT-PCR test was performed using the Carissa SARS-CoV-2 and Influenza A/B Reagent assay from [employer], which has received Emergency Use Authori zation(EUA) by the U.S. Food and Drug Administration . Fact sheets for this Emergency Use Autho rization (EUA) assay can be found at the following link s: For Healthcare Providers: https://www.fda.gov/media/592582/downloa d For Patients: https://www.fda.gov/media/857065/downloa d Infl A/B, SARS CoV-2, PCR, Source Swab, Nasopharynx 04/28/2022 9:02 AM CDT NPRG Specimen Anatomical Collection Method Collection Time Receive d Time (Source) Location / / Volume Laterality Varies 04/28/2022 8:48 AM 9:02 CDT AM CDT Rylie Mcdowell M.D. LAB MICROBIOLOGY - GENERAL O RDERABLES Performing Organization Address City/[facility] Phon e Number [address] LAB NPRG [place] [phone] [address] Protein/Creatinine Ratio, Random, Urine (03/31/2022 5:34 [...] M.D. LAB URINE ORDERABLES Performing Organization Address [facility] Phon e Number [address] LAB NPRG [place] [phone] [address] ALT (Alanine Aminotransferase) (03/31/2022 5:31 PM CDT) Patholo gist Method Time Signature Alanine 10 7 - 45 03/31/2022 NPRG Aminotransferase U/L 5:59 PM CDT (ALT), P Specimen Anatomical Collection Method Collection Time Receive d Time (Source) Location / / Volume Laterality Blood (Blood, 03/31/2022 5:31 PM 03/31/20 5:34 Venous) CDT PM CDT Cheikh Gautam M.D. LAB BLOOD ADD-ON Performing Organization Address City/[facility] Phon e Number [address] [place] [address] LAB NPRG [place] [phone] AST (Aspartate Aminotransferase) (03/31/2022 5:31 PM CDT) [facility] Method Time Signature Aspartate 13 8 - 43 03/31/2022 NPRG Aminotransferase U/L 5:59 PM CDT (AST), P Specimen Anatomical Collection Method Collection Time Receive d Time (Source) Location / / Volume Laterality Blood (Blood, 03/31/2022 5:31 PM 03/31/20 5:34 Venous) CDT PM CDT Cheikh Gautam M.D. LAB BLOOD ADD-ON Performing Organization Address City/[facility] Code Phon e Number [address] [place] [address] LAB NPRG [place] [phone] (ABNORMAL) Creatinine with Estimated GFR (03/31/2022 5:31 PM CDT) Analysis Performed At Patho logist Time Signature Creatinine 0.58 (L) 0.59 - 03/31/2022 NPRG 1.04 mg/dL 5:59 PM CDT eGFR-Black/Afri >90 >=60 03/31/2022 NPRG can Czech mL/min/BSA 5:59 PM CDT Comment: ----ADDITIONAL INFORMATION---- [...] M.D. LAB BLOOD ADD-ON Performing Organization Address City/[facility] Phon e Number [address] [place] [address] [place] [address] Chlamydia / Gonorrhoeae Amplified RNA (03/27/2022 10:42 AM CDT) [facility] gist Method Time Signature Source Urine, 03/27/2022 [...] - GENERAL O RDERABLES Performing Organization Address City/[facility] Phon e Number [facility]- [address] [place] [address] [place] [address] [address] OB Anatomy Martins (03/27/2022 10:28 AM CDT) [...] Normal anatomic survey; gender is female. Cheikh TRUONG OB US PROCEDURES from Last 3 Months Insurance Payer Benefit Plan / Subscriber ID Effective Phone Address [facility] Group Dates EMPLOYERS EMPLOYERS [id number] 2019-Pres [phone] [address] [facility] INSURANCE INSURANCE [facility] [id number] [place] [address] [facility] [id number] 2022-Pres [phone] [address] HMO ent [address] [place] [address] Lulu Mata Workers Comp Self [address] (Home) [place] [address] Lulu Mata Third Alliance Party Self [address] Liability (Home) [place] [address] Care Teams Career Technical Counselor Relationship Specialty Start Date End Date Ben Arce M.D. PCP - General Family Medicine 01/13/[address] [place] [phone]
--- OUTSIDE RECORDS SUMMARY | 2022-06-18 19:26 | XMS_ITS | Encounter Summary ---
:1990 Author Organization [facility] Address [address] [place] [address] Care Team Providers Name Role Phone Ben Arce M.D. Primary Care Provider Encounter Details Date Type Department Care Team Description 02/28/2022 Orders Only Department of Obstetrics and Gau Terrence zamarripa M.D. Gynecology in [address] [address] [place] [address] [phone] Social History Tobacco Use Types Packs/Day Years [...] do you attend protestant or Never 2021 nondenominational services? Do you [...] Date Recorded Female 12/02/2021 5:19 PM ASSISTANT COOK documented as of this encounter Plan of Treatment Not on filedocumented as of this encounter Visit Diagnoses Not on filedocumented in this encounter Additional Health Concerns Assessment Noted Time PHQ-9 Depression Total Score: 4 12/20/2021 10:52 AM CS T documented as of this encounter Care Teams Global Position System Technician Relationship Specialty Start Date End Date Ben Arce M.D. PCP - General Family Medicine 01/13/[address] [place] [phone] documented as of this encounter
--- OUTSIDE RECORDS SUMMARY | 2022-06-18 19:26 | XMS_ITS | Encounter Summary ---
:1990 Author Organization [facility] Address [address] [place] [address] Care Team Providers Name Role Phone Ben Arce M.D. Primary Care Provider Encounter Details Date Type Department Care Team Description 12/20/2021 Silent Schedule Department of Terrence Swenson, Pregnanc y Examination Obstetrics and M.D. Test With Positive Gynecology in [address] [place], [place] [address] [address] [place], [place] [phone] [address] (Work) [phone] Social History Tobacco Use Types Packs/Day Years [...] you attend oriental orthodox or Never 2021 church services? Do you [...] or slept in a fci (including now)? Education Answer Date Recorded What is the highest level of school you have completed or 12 th grade 05/17/2021 the highest degree you have received? Sex Assigned at Date Recorded Female 12/02/2021 5:19 PM RESEARCH COMPLIANCE SPECIALIST documented as of this encounter Plan of Treatment Not on filedocumented as of this encounter Procedures Procedure Name Priority Date/Time Associated Comments Diagnosis US OB FIRST RAD - Routine 12/20/2021 10:50 Results fo r this TRIMESTER (most inpatients AM RESEARCH COMPLIANCE SPECIALIST Examination Test procedu re are in and all With Positive the results outpatients) Result section. documented in this encounter Results US OB First Trimester (12/20/2021 10:50 AM RESEARCH COMPLIANCE SPECIALIST) Anatomical Region Laterality Modality Body, Ultrasound OB RST LOS, Ultrasound ARZ LOS N/A Ultrasound Specimen (Source) Anatomical Collection Method Collection Time Re ceived Time Location / / Volume Laterality 12/20/2021 12:31 PM RESEARCH COMPLIANCE SPECIALIST Impressions 12/20/2021 12:34 PM RESEARCH COMPLIANCE SPECIALIST Single, viable, intrauterine gestation w ith CARLOS of August 14, 2022 (not consistent with menstrual dating). Narrative 12/20/2021 12:34 PM RESEARCH COMPLIANCE SPECIALIST EXAM: US OB FIRST TRIMESTER COMPARISON: None Physician: Dr. Swenson FINDINGS: Gestational age and CARLOS by LMP or OB/EHR assignment: 7 w 3 d, CARLOS: 08/05/2022 INTRAUTERINE Pole: Normal, Irving-Rump Length: 0 .50 cm Gestational Sac: Normal [...] 3 d, CARLOS: 08/05/2022 INTRAUTERINE Pole: Normal, Irving-Rump Length: 0 .50 cm Gestational Sac: Normal [...] documented as of this encounter Care Teams Experimental Plastics Fabricator Relationship Specialty Start Date End Date Ben Arce M.D. PCP - General Family Medicine 01/13/21 [address] [place] [address] documented as of this encounter
--- OUTSIDE RECORDS SUMMARY | 2022-06-18 19:26 | XMS_ITS | Encounter Summary ---
:1990 Author Organization [facility] Address [address] [place] [address] Care Team Providers Name Role Phone Ben Arce M.D. Primary Care Provider Reason for Visit Reason Comments Routine Visit 12+2weeks Sinusitis Concerns Outpatient (Routine) - Authorized Specialty Diagnoses / Procedures Referred By Contact Refer red To Contact Obstetrics and Cheikh Gautam [facility] william Gynecology MGonzalez Referral ID Status Reason Start Date Expiration Date Visits V isits Requested Authorized [id number] Authorized 12/20/2021 12/20/2022 15 15 Encounter Details Date Type Department Care Team Description 02/01/2022 Routine Department of Terrence Swenson [facility] Obstetrics and MGonzalez (Primary Dx) Gynecology in [address] [address] [place], [place] [phone] [address] (Work) [phone] Social History Tobacco Use Types Packs/Day Years [...] do you attend anabaptist or Never 2021 congregational services? Do you [...] Date Recorded Female 12/02/2021 5:19 PM SUPERVISOR CELL EFFICIENCY documented as of this encounter Last Filed Vital Signs Vital Sign Reading Time Taken Comments Blood Pressure 130/86 02/01/2022 8:50 AM CDT Pulse - - Temperature - - Respiratory Rate - - Oxygen Saturation - - Inhaled Oxygen Concentration - - Weight 69.9 kg (154 lb 1.6 oz) 02/01/2022 8:49 AM CDT Height - - Body Mass Index 29.09 12/09/2021 8:31 AM SUPERVISOR CELL EFFICIENCY documented in this encounter Progress Notes Terrence [...] ASSESSMENT / PLAN #1 High Risk - [id number] Plus-Sent Out Lab; Future; Expected date: 02/01/2022 [...] has been sent to her pharmacy in [place]. Most of the early symptoms of including [...] on filedocumented as of this encounter Results [id number] Plus-Sent Out Lab (02/01/2022 9:52 AM CDT) [...] Organization Address City/State/ZIP Code Phon e Number [facility] [address] [place] [address] [employer] [place] [address] documented in this encounter Visit Diagnoses Diagnosis High Risk (HCC) - Primary documented in this encounter Additional Health Concerns Assessment Noted Time PHQ-9 Depression Total Score: 4 12/20/2021 10:52 AM CS T documented as of this encounter Care Teams Nuclear Equipment Sales Engineer Relationship Specialty Start Date End Date Ben Arce M.D. PCP - General Family Medicine 01/13/[address] [place] [phone] documented as of this encounter
--- OUTSIDE RECORDS SUMMARY | 2022-06-18 19:26 | XMS_ITS | Encounter Summary ---
:1990 Author Organization [facility] Address [address] [place] [address] Care Team Providers Name Role Phone Ben Arce M.D. Primary Care Provider Encounter Details Date Type Department Care Team Description 12/20/2021 Hospital Encounter Department of Cheikh Gautam Laboratory Medicine Minoo Garcia Supervis ion Of Other in [facility] Unspecified [address] [place] [address] Social History Tobacco Use Types Packs/Day Years [...] do you attend sikhism or Never 2021 scientology services? Do you [...] at Date Recorded Female 12/02/2021 5:19 PM SCHEDULE CLERK documented as of this encounter Medications at [...] Encounter For Resul ts for this AM SCHEDULE CLERK Supervision Of Other procedu re are in Normal the results Unspecified section. Trimester URINALYSIS WITH Routine 12/20/2021 11:26 Encounter For Results for this MICROSCOPIC IF AM SCHEDULE CLERK Supervision Of Other proce dure are in INDICATED, U Normal the results Unspecified section. Trimester BACTERIAL CULTURE, Routine 12/20/2021 11:26 Encounter For Resu lts for this AEROBIC + SUSC, AM SCHEDULE CLERK Supervision Of Other proc edure are in URINE Normal the results Unspecified section. Trimester documented in this encounter Results Hemoglobin A1c (12/20/2021 11:34 AM SCHEDULE CLERK) P athologist Signature Hemoglobin A1c, 5.2 4.2 - 5.6 12/20/2021 OWAT B % 12:27 PM SCHEDULE CLERK Specimen Anatomical Collection Method Collection Time Receive d Time (Source) Location / / Volume Laterality Blood (Blood, 12/20/2021 11:34 12/20/2021 Venous) AM SCHEDULE CLERK 11:40 AM SCHEDULE CLERK Cheikh Gautam M.D. LAB BLOOD ADD-ON Performing Organization Address City/State/ZIP Code Phon e Number [facility]- [address] [place] [address] [place] [address] System in [place] [address] Bacterial Culture, Aerobic + Susc, Urine (12/20/2021 11:26 AM SCHEDULE CLERK) Patholo gist Method Time Signature Urine Culture No growth 12/21/2021 MKTO after 1 day 8:40 AM SCHEDULE CLERK of incubation. Specimen Anatomical Collection Method Collection Time Receive d Time (Source) Location / / Volume Laterality Urine (Urine, 12/20/2021 11:26 12/20/2021 2:19 Midstream) AM SCHEDULE CLERK PM SCHEDULE CLERK Comment: Specimen Source Site: Urine Cheikh Gautam M.D. LAB MICROBIOLOGY - GENERAL O RDERABLES Performing Organization Address City/State/ZIP Code Phon e Number [facility]- [address] [place] [address] [place] [address] System in [place] [address] [place] [address] Urinalysis with Microscopic if Indicated (12/20/2021 11:26 AM SCHEDULE CLERK) P athologist Signature Source Urine, 12/20/2021 OW[place] Urine, Clean 12:12 PM SCHEDULE CLERK Catch Clarity Clear Clear 12/20/2021 OWAT 12:12 PM SCHEDULE CLERK Color Yellow 12/20/2021 OWAT 12:12 PM SCHEDULE CLERK Comment: ----REFERENCE VALUE---- Colorless Yellow Ronda Blood Negative Negative 12/20/2021 12:12 PM SCHEDULE CLERK [place] Nitrite Negative Negative 12/20/2021 12:12 PM SCHEDULE CLERK [place] Leukocyte Esterase Negative Negative 12/20/2021 12:[address] [place] Protein Negative mg/dL 12/20/2021 12:12 PM SCHEDULE CLERK OW[place] Comment: ----REFERENCE VALUE---- Negative Trace Glucose Negative Negative mg/dL 12/20/2021 12:12 PM SCHEDULE CLERK O FRANSICO Ketone Negative Negative mg/dL 12/20/2021 12:12 PM SCHEDULE CLERK O FRANSICO Bilirubin Negative Negative 12/20/2021 12:12 PM SCHEDULE CLERK OW[place] pH 6.0 5.0 - 8.0 12/20/2021 12:12 PM SCHEDULE CLERK [place] Specific [place] 1.005 1.001 - 1.035 12/20/2021 12:12 PM SCHEDULE CLERK OW[place] Urobilinogen 0.2 0.2 - 1.0 mg/dL 12/20/2021 12:[address] OW[place] Specimen Anatomical Collection Method Collection Time Receive d Time (Source) Location / / Volume Laterality Urine (Urine, 12/20/2021 11:26 12/20/2021 Clean Catch) AM SCHEDULE CLERK 12:06 PM SCHEDULE CLERK Cheikh Gautam M.D. LAB URINE ORDERABLES Performing Organization Address City/State/ZIP Code Phon e Number [facility]- [address] [place] [address] [place] [address] System in [place] [address] documented in this encounter Visit Diagnoses Diagnosis Encounter For Supervision Of Other Stella ecohls Unspecified Trimester (HCC) documented in this encounter Additional Health Concerns Assessment Noted Time PHQ-9 Depression Total Score: 4 12/20/2021 10:52 AM CS T documented as of this encounter Care Teams Air Analysis Technician Relationship Specialty Start Date End Date Ben Arce M.D. PCP - General Family Medicine 01/13/[address] [place] [phone] documented as of this encounter
--- OUTSIDE RECORDS SUMMARY | 2022-06-18 19:26 | XMS_ITS | Encounter Summary ---
:1990 Author Organization [facility] Address [address] [place] [address] Care Team Providers Name Role Phone Ben Arce M.D. Primary Care Provider Reason for Referral Outpatient (Routine) - Authorized Specialty Diagnoses / Procedures Referred By Contact Refer red To Contact Obstetrics and Cheikh Gautam [facility] Gynecology Minoo Referral ID Status Reason Start Date Expiration Date Visits V isits Requested Authorized [id number] Authorized 12/20/2021 12/20/2022 15 15 Scheduling Instructions Every 4 weeks until 28 week gestation. Then every 2 weeks until 36 week gestati on. Then every 1 week until 40+ week gestati on. RUMENT SETTER Reason for Visit Reason Comments Initial Visit 7w 3d Outpatient (Routine) - Closed Specialty Diagnoses / Procedures Referred By Contact Refer red To Contact Obstetrics and Diagnoses Examination Test With Positive Result (HCC) Terrence Swenson [facility]. [facility] [address] [place] [address] Referral ID Status Reason Start Date Expiration Date Visits Requ ested Visits Authorized [id number] Closed 12/01/2021 12/01/2022 1 1 Encounter Details Date Type Department Care Team Description 12/20/2021 Initial Department of Obstetrics [place] in [place], [place]: 6w1d and Gynecology in [place], [place] [address] [place] [address] Social History Tobacco Use Types Packs/Day [...] do you attend rastafari or Never 2021 zoroastrian services? Do you belong to any clubs [...] at Date Recorded Female 12/02/2021 5:19 PM INSTRUMENT SETTER documented as of this encounter Last Filed Vital Signs Vital Sign Reading Time Taken Comments Blood Pressure 136/80 12/20/2021 10:52 AM INSTRUMENT SETTER Pulse - - Temperature - - Respiratory Rate - - Oxygen Saturation - - Inhaled Oxygen Concentration - - Weight 69.2 kg (152 lb 8.9 oz) 12/20/2021 10:52 AM INSTRUMENT SETTER Height - - Body Mass Index 28.8 12/09/2021 8:31 AM INSTRUMENT SETTER documented in this encounter Progress Notes Cheikh [...] and Family: Twice a week ??? Attends Caodaism Services: Never ??? Active Member of Clubs [...] Vaccinations: COVID complete but needs booster/Flu declines Dowel Maker: Pap NIL w/ neg HPV 11/2021 Aneuploidy screening/Carrier Screening: declines Preeclampsia prevention: aspirin to start at 12 weeks FAS: 28 week labs: TDAP /Rhogam GBS Growth Ultrasounds: surveillance: Presentation (36 weeks): Del planning: PPBC: Problems: 1. Hx preeclampsia: aspirin to start at 12 weeks. Need to get baseline preE labs 2. Hx GDM: Early A1C ordered RUMENT SETTER documented in this encounter Plan of Treatment [...] Diagnoses Obstetrics and Outpatient Referral Routine 15 [facility] Gynecology office starting 0 12/20/2021 visit (clinic) [...] US PROCEDURES Hemoglobin A1c (12/20/2021 11:34 AM INSTRUMENT SETTER) P athologist Signature Hemoglobin A1c, 5.2 4.2 - 5.6 12/20/2021 OWAT B % 12:27 PM INSTRUMENT SETTER Specimen Anatomical Collection Method Collection Time Receive d Time (Source) Location / / Volume Laterality Blood (Blood, 12/20/2021 11:34 12/20/2021 Venous) AM INSTRUMENT SETTER 11:40 AM INSTRUMENT SETTER Cheikh Gautam M.D. LAB BLOOD ADD-ON Performing Organization Address City/State/ZIP Code Phon e Number [facility]- [address] [place] [address] [facility] [place] [address] System in [place] [address] documented in this [...] documented as of this encounter Care Teams Revenue Cycle Administrator Relationship Specialty Start Date End Date Ben Arce M.D. PCP - General Family Medicine 01/13/[address] [place] [address] documented as of this encounter
--- OUTSIDE RECORDS SUMMARY | 2022-06-18 19:26 | XMS_ITS | Encounter Summary ---
:1990 Author Organization [facility] Address [address] [place] [address] Care Team Providers Name Role Phone Ben Arce M.D. Primary Care Provider Reason for Referral Outpatient (Routine) - Authorized Specialty Diagnoses / Procedures Referred By Contact Refer red To Contact Diagnoses Pain Back Pain Neck Ben Arce M.D. External, Referring [address] [place] [address] Referral ID Status Reason Start Expiration Visits Visits Date Date Requested Authorized [id number] Authorized Patient 03/01/2022 03/01/2023 1 1 Preference Reason for Visit Reason Comments Outside Order Insurance Referral Encounter Details Date Type Department Care Team Description 03/01/2022 Clinical Communication Department of Ben Arce, Outs [facility] Order Family Medicine in [place] (Insurance Referral) [place] [address] [place] [address] [facility] [phone] Social History Tobacco Use Types Packs/Day Years [...] do you attend gnosticism or Never 2021 buddhist services? Do you belong to any clubs or No 11/20/2021 organizations such as gnosticism groups, unions, [employer] or athletic groups, or school groups? How [...] at Date Recorded Female 12/02/2021 5:19 PM AGENCY SALES DEVELOPMENT ASSOCIATE documented as of this encounter Miscellaneous Notes Telephone Encounter - Jossie Ramos - 03/06/2022 8:41 AM CDT [facility] restricted referral faxed 03/02/22 with office visit notes. Also faxed [facility] restricted forms for OB care [facility]. Thank you, Jossie Referrals 03/02/22 Lore called from [facility] [phone]. This referral has been processed. 03/03/22sla. Telephone Encounter - Ben Arce M.D. - 03/01/2022 3:07 PM CDT Order signed. Telephone Encounter - Jossie Ramos - 03/01/2022 2:[address] Arce, ORDER/LAB/REFERRAL REQUEST: Name of test/referral/order requested: [facility] [place] i [id number] Reason for request: Back and neck pain Date needed: 02/26/22 Order pended to this encounter, once signed we can submit the Restricted [facility] referral for insurance. Thank you, Jossie Referrals 03/01/22 documented in this encounter Plan of Treatment Not on filedocumented as of this encounter Visit Diagnoses Diagnosis Pain Back - Primary Pain Neck documented in this encounter Additional Health Concerns Assessment Noted Time PHQ-9 Depression Total Score: 4 12/20/2021 10:52 AM CS T documented as of this encounter Care Teams Staff Veterinarian Relationship Specialty Start Date End Date Ben Arce M.D. PCP - General Family Medicine 01/13/[address] [place] [address] documented as of this encounter
--- OUTSIDE RECORDS SUMMARY | 2022-06-18 19:26 | XMS_ITS | Encounter Summary ---
:1990 Author Organization [facility] Address [address] [place] [address] Care Team Providers Name Role Phone Ben Arce M.D. Primary Care Provider Encounter Details Date Type Department Care Team Description 03/27/2022 Ancillary Procedure Department of Cheikh Gautam For Obstetrics and Minoo Garcia Supervision O f Other Gynecology in Normal [place], [place] Unspecified [address] Trimester (HCC) [place] [address] Social History Tobacco Use Types [...] or relatives? How often do you attend mandaeism or Never 2021 catholic services? Do you belong to any clubs or No 11/20/2021 organizations such as mandaeism groups, unions, fraternal or athletic groups, or [...] at Date Recorded Female 12/02/2021 5:19 PM NOTE TELLER documented as of this encounter Plan of [...] documented as of this encounter Care Teams Ground Defence Officer Relationship Specialty Start Date End Date Ben Arce M.D. PCP - General Family Medicine 01/13/21 [address] [place] [address] documented as of this encounter
--- OUTSIDE RECORDS SUMMARY | 2022-06-18 19:26 | XMS_ITS | Encounter Summary ---
:1990 Author Organization [facility] Address [address] [place] [address] Care Team Providers Name Role Phone Ben Arce M.D. Primary Care Provider Reason for Visit Reason Comments Routine Visit 16 2/7 wk ob check pelvic/lo wer back pain 7/10 pain scale, needs referral to chiropract or Outpatient (Routine) - Authorized Specialty Diagnoses / Procedures Referred By Contact Refer red To Contact Obstetrics and Cheikh Gautam [facility] william Gynecology M.DMaribell Referral ID Status Reason Start Date Expiration Date Visits V isits Requested Authorized [id number] Authorized 12/20/2021 12/20/2022 15 15 Encounter Details Date Type Department Care Team Description 03/01/2022 Routine Department of Terrence Swenson [place] Examination Test With Positive Result (HCC) (Primary Dx); Obstetrics and M.D. Encounter For Supervision Of Normal [place]reg [place] Unspecified Trimester (HCC) Gynecology in [address] [place], [place] [address] [address] [place], [place] [phone] (Work) [phone] Social History Tobacco Use Types Packs/Day Years [...] do you attend taoism or Never 2021 christian services? Do you belong to any clubs or No 11/20/2021 organizations such as taoism groups, unions, [employer] or athletic groups, or school groups? How [...] at Date Recorded Female 12/02/2021 5:19 PM FINANCIAL AID ADMINISTRATOR documented as of this encounter Last Filed [...] and Family: Twice a week ??? Attends Judaism Services: Never ??? Active Member of Clubs [...] documented as of this encounter Care Teams Supervisor Porcelain Department Relationship Specialty Start Date End Date Ben Arce M.D. PCP - General Family Medicine 01/13/[address] [place] [address] documented as of this encounter
--- OUTSIDE RECORDS SUMMARY | 2022-06-18 19:26 | XMS_ITS | Encounter Summary ---
:1990 Author Organization [facility] Address [address] [place] [address] Care Team Providers Name Role Phone Ben Arce M.D. Primary Care Provider Reason for Visit Reason Comments Hand Injury Medical Information Encounter Details Date Type Department Care Team Description 02/11/2022 Nurse Triage Department of [facility] Rylie Hightower Hand Injury; Medical Medicine in [place], [place] [address] [facility] [address] [place] [phone] [phone] Social History Tobacco Use Types Packs/Day Years [...] or relatives? How often do you attend scientology or Never 2021 worship services? Do you belong to any clubs or No 11/20/2021 organizations such as scientology groups, unions, fraternal or athletic groups, or [...] Date Recorded Female 12/02/2021 5:19 PM MANAGER FIXED INCOME documented as of this encounter Miscellaneous Notes [...] or deformed) Protocols used: HAND AND WRIST [id number] documented in this encounter Plan of Treatment Not on filedocumented as of this encounter Visit Diagnoses Not on filedocumented in this encounter Additional Health Concerns Assessment Noted Time PHQ-9 Depression Total Score: 4 12/20/2021 10:52 AM CS T documented as of this encounter Care Teams Foster Winder Relationship Specialty Start Date End Date Ben Arce M.D. PCP - General Family Medicine 01/13/[address] [place] [address] documented as of this encounter
--- OUTSIDE RECORDS SUMMARY | 2022-06-18 19:26 | XMS_ITS | Encounter Summary ---
:1990 Author Organization [facility] Address [address] [place] [address] Care Team Providers Name Role Phone Ben Arce M.D. Primary Care Provider Reason for Visit Reason Comments Vomiting Pt presents with nausea and vomiting that began last evening at 1700. Has persisted all night. Pt is 6 weeks . Encounter Details Date Type Department Care Team Description 12/09/2021 Emergency [facility] Valerie Malone, Nause a And Vomiting (Primary Dx); Department M.D. Less Than 8 Weeks Gestation [address] [place] [phone] Social History Tobacco Use Types Packs/Day Years [...] do you attend hoahaoism or Never 2021 taoist services? Do you [...] at Date Recorded Female 12/02/2021 5:19 PM STRUCTURAL ENGINEERING TECHNICIAN documented as of this encounter Last Filed Vital Signs Vital Sign Reading Time Taken Comments Blood Pressure 126/87 12/09/2021 9:45 AM STRUCTURAL ENGINEERING TECHNICIAN Pulse 95 12/09/2021 10:00 AM STRUCTURAL ENGINEERING TECHNICIAN Temperature 37.2 ??C (99 ??F) 12/09/2021 10:00 AM STRUCTURAL ENGINEERING TECHNICIAN Respiratory Rate 14 12/09/2021 8:29 AM STRUCTURAL ENGINEERING TECHNICIAN Oxygen Saturation 99% 12/09/2021 10:00 AM STRUCTURAL ENGINEERING TECHNICIAN Inhaled Oxygen Concentration - - Weight 68.3 kg (150 lb 9.2 oz) 12/09/2021 8:31 AM STRUCTURAL ENGINEERING TECHNICIAN Height 155 cm (5' 1.02) 12/09/2021 8:31 AM STRUCTURAL ENGINEERING TECHNICIAN Body Mass Index 28.43 12/09/2021 8:31 AM STRUCTURAL ENGINEERING TECHNICIAN documented in this encounter Discharge Instructions Discharge InstructionsValerie Malone M.D. - 12/09/2021 9:29 AM CST If you are unable to keep yourself well hydrated at home, please feel free to return. CTURAL ENGINEERING TECHNICIAN AttachmentsThe following attachments cannot be sent through Care Everywhere. Morning Sickness (Pashto)documented in this encounter Medications at Time of [...] normal. ASSESSMENT/PLAN IMPRESSION AND PLAN Vomiting with twsy-ke-ifutrzsb dehydration during . I gave normal saline 1 L IV, [id number] mg IV, Zofran 4 mg IV. She [...] 8 Weeks Gestation Valerie Malone M.D. 12/09/21934 CTURAL ENGINEERING TECHNICIAN documented in this encounter Plan of [...] 1,000 mL New Bag 12/09/2021 8:48 AM STRUCTURAL ENGINEERING TECHNICIAN 1,000 mL 1000 mL/hr 1,000 mL, intravenous, at 1,000 mL/hr, Administer over 1 Hours, Once, On Sun12/09/21 at 0836, For 1 dose ondansetron (PF) injection 4 mg (ZOFRAN) Given 12/09/2021 9:31 AM STRUCTURAL ENGINEERING TECHNICIAN 4 mg 4 mg, intravenous, Once, On Sun12/09/21 at 0921, For 1 dose pyridoxine (vitamin B6) injection 100 mg Given 12/09/2021 9:00 AM STRUCTURAL ENGINEERING TECHNICIAN 100 mg 100 mg, intravenous, Once, On Sun12/09/21 at 0836, For 1 dose sodium chloride 0.9 % injection 10 mL Given 12/09/2021 8:45 AM STRUCTURAL ENGINEERING TECHNICIAN 10 mL 10 mL, intravenous, As needed, [...] Recently Administered Medications Times are shown in STRUCTURAL ENGINEERING TECHNICIAN. Scheduled Medication Order 12/07/2021 12/08/2021 12/09/2021 NaCl [...] injection documented in this encounter Care Teams Wooden Fence Erector Relationship Specialty Start Date End Date Ben Arce M.D. PCP - General Family Medicine 01/13/[address] [facility] [place] [phone] documented as of this encounter
--- OUTSIDE RECORDS SUMMARY | 2022-06-18 19:26 | XMS_ITS | Encounter Summary ---
:1990 Author Organization [facility] Address [address] [place] [address] Care Team Providers Name Role Phone Ben Arce M.D. Primary Care Provider Reason for Visit Reason Comments Nausea Vomiting During Auth/Cert Specialty Diagnoses / Procedures Referred By Contact Refer red To Contact Diagnoses . Procedures . Referral ID Status Reason Start Date Expiration Date Visits Requ ested Visits Authorized [id number] 1 1 Encounter Details Date Type Department Care Team Description 04/28/2022 Hospital Encounter [facility] Rylie Mcdowell Encounte r [facility] Praguolive Hennessy Supervision Of [facility], [place] [id number] [facility] Normal Floor [place], [place] Unspecified [address] [place] [address] Trimester (HCC) [place], [place] [phone] [address] (Work) [phone] Social History Tobacco Use Types Packs/Day Years [...] do you attend worship or Never 2021 religion services? 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 Education [...] 8.0 04/28/2022 11:36 AM CDT NPRG Specific [place] 1.015 1.001 - 1.035 04/28/2022 11:36 AM [...] Organization Address City/State/ZIP Code Phon e Number [place] [address] [address] [place], [place] [address] [address] [facility] [place] [address] Influenza A/B, SARS CoV-2, PCR, Rapid, Varies (04/28/2022 8:48 AM CDT) [facility] Method Time Signature Influenza A, Negative Negative 04/28/2022 NPRG PCR, Rapid, V 9:26 AM CDT Influenza B, Negative Negative 04/28/2022 NPRG PCR, Rapid, V 9:26 AM CDT SARS CoV-2, Undetected Undetected 04/28/2022 NPRG PCR, Rapid, V 9:26 AM CDT Comment: ----ADDITIONAL INFORMATION---- This RT-PCR test was performed using the Carissa SARS-CoV-2 and Influenza A/B Reagent assay from [employer], which has received Emergency Use Authori zation(EUA) by the U.S. Food and Drug Administration . Fact sheets for this Emergency Use Autho rization (EUA) assay can be found at the following link s: For Healthcare Providers: https://www.fda.gov/media/745490/downloa d For Patients: https://www.fda.gov/media/655378/downloa d Infl A/B, SARS CoV-2, PCR, Source Swab, Nasopharynx 04/28/2022 9:02 AM CDT NPRG Specimen Anatomical Collection Method Collection Time Receive d Time (Source) Location / / Volume Laterality Varies 04/28/2022 8:48 AM 9:02 CDT AM CDT Rylie Mcdowell M.D. LAB MICROBIOLOGY - GENERAL O RDERABLES Performing Organization Address City/State/ZIP Code Phon e Number [address] [address] [address] [facility] [place] [address] documented in this encounter Visit Diagnoses [...] documented as of this encounter Care Teams Railway Yard Assistant Relationship Specialty Start Date End Date Ben Arce M.D. PCP - General Family Medicine 01/13/[address] [place] [phone] documented as of this encounter
--- OUTSIDE RECORDS SUMMARY | 2022-06-18 19:26 | XMS_ITS | Clinical Summary ---
:1990 Author Organization [facility] [place] [address] Care Team Providers Name Role Phone Genny Lazo MD Primary Care Provider [phone] Allergies No known active allergies Medications Medication Sig Dispensed Refills Start Date End Date Status etonogestrel subdermal Inject 1 Device 1 Device 0 06/05/2013 Active implant (NEXPLANON) 68 subdermal one mg implant time. albuterol HFA Inhale 2 Puffs by 1 Inhaler 0 01/27/2015 Active (VENTOLIN HFA) 90 mouth every 4 mcg/actuation hours if needed inhalerIndications: for Wheezing or Cough Other (Specify) (cough). pediatric multivit One a day 30 Tab 0 07/19/2016 Active comb. no.49 (FLINTSTONES GUMMIES) chewIndications: Irregular periods Active Problems Problem Noted Date Toxemia 12/05/2012 Gestational diabetes 09/21/2012 Overview: Diet-controlled Vitamin D deficiency 06/22/2012 Overview: 28.3 Comments Yes Immunizations Name Administration Dates Next Due DTaP 02/03/1992, 08/05/1991, 03/18/1991, 1989, 1989, 1989 Hepatitis B (Peds) 02/22/2001, 12/07/2000, 10/03/2000 Influenza, IIV3 (Age >=3 years) 07/10/2012, 09/08/2003 MMR 12/07/2000 Oral Polio Vaccine 02/03/1992, 03/18/1991, 1989, 1989, 1989 Td (Age >=7 Years) 10/03/2000 Tdap 09/03/2012 Family History Medical History Relation Name Comments Allergies Brother 2 Alcohol/Drug Father Alcoholism Father Allergies Father Hypertension Father Premature CHD (under age 60) Father VA Allergies Mother Hypertension Mother Allergies Sister 4 Relation Name Status Comments Brother 1 Alive Brother 2 Father Alive Maternal Grandmother Mother Alive Paternal Grandfather Paternal Grandmother Sister 1 Alive Sister 2 Alive Sister 3 Alive Sister 4 Son Alive Social History Tobacco Use Types Packs/Day Years Used Date Never Smoker Smokeless Tobacco: Never Used Tobacco Cessation: Counseling Given: No Comments: Alcohol Use Standard Drinks/Week Comments No 0 (1 standard drink = 0.6 oz pure alcoho l) Comments Yes Sex Assigned at Date Recorded Not on file Obstetrics History Para Term AB IAB SAB Ectopic Multiple Living Live Births 3 2 2 0 1 2 Date Outcome GA Total Labor/2nd/3rd Weight Sex Delivery Anes PTL Christine A 1 A5 Name Clin Labor 2003 22w Neon 0d atal Yamilex se Comments: lost baby due to trauma, fall down stairs 12/05/2012 36w3d 10h 2.53 M Vag Epidural N Living 4 8 LARISSA,BABY Dr 00m/0h kg (5 BOY Ho uts 05m/ lb 9.2 oz) Delivery Location: [facility] Comments: Induced preeclampsia Current OB Episode Summary Episode Dates Estimated Date of Pregravid Weight TWG (As of ) Delivery 04/04/2022 - Present Unknown (06/18/2022) Last Filed Vital Signs Vital Sign Reading Time Taken Comments Blood Pressure 128/74 01/04/2018 5:24 PM CDT Pulse 103 01/04/2018 5:24 PM CDT Temperature 37.2 ??C (99 ??F) 01/04/2018 5:24 PM CDT Respiratory Rate 18 01/04/2018 5:24 PM CDT Oxygen Saturation 98% 01/04/2018 5:24 PM CDT Inhaled Oxygen Concentration - - Weight 72.1 kg (159 lb) 01/04/2018 5:24 PM CDT Height 152.4 cm (5') 09/23/2015 2:13 PM [facility] Body Mass Index 31.05 09/23/2015 2:13 PM [facility] Plan of Treatment Upcoming Encounters Date Type Specialty Care Team Description 08/14/2022 Hospital Encounter Roman Gautam MD [address] [place] [address] (Wo rk) Health Maintenance Due Date Last Done Comments COVID-19 vaccine series (#1) 1989 Depression screening for age 12+ 2001 BMI (ht and wt on same day) for 2007 age 18+ Hepatitis C screening for age 0604/10/2007 18-79 Pap test for age 21-65 09/23/2018 09/23/2015, 01/14/2013, 07/10/2012, Additional history exists Influenza for age 9-49 06/22/2022 07/10/2012, 09/08/2003 Tetanus booster 09/03/2022 09/03/2012, 10/03/2000 Tdap Completed 09/03/2012 Results Not on filefrom Last 3 Months Insurance Payer Benefit Plan / Subscriber ID Effective Dates Phone Addre ss Type Group TASHI AKINS MA 2012-Present [address] [place] [address] [phone] [facility] (Home[facility] [place], [place] [phone] (Work) Lulu Mata Personal/Family Self [phone] [facility]Home[facility] [place], [place] [phone] (Work) Advance Directives Latest Code Status on File Code Status Date Activated Date Inactivated Comments Full Code 12/05/2012 6:17 AM 12/07/2012 9:39 PM Full Code 12/05/2012 1:03 AM 12/05/2012 6:17 AM Full Code 12/03/2012 4:10 PM 12/05/2012 1:03 AM Full Code 11/30/2012 9:24 PM 12/01/2012 3:09 AM Full Code 11/30/2012 9:03 PM 11/30/2012 9:24 PM Care Teams School Transportation Director Relationship Specialty Start Date End Date Genny Lazo MD PCP - General Family Practice 07/02/12 [address] [facility] [address] [facility] [place] [address]
--- OUTSIDE RECORDS SUMMARY | 2022-06-18 19:26 | XMS_ITS | Encounter Summary ---
:1990 Author Organization [facility] Address [address] [place] [address] Care Team Providers Name Role Phone Ben Arce M.D. Primary Care Provider Encounter Details Date Type Department Care Team Description 12/20/2021 Hospital Encounter Department of Cheikh Gautam Laboratory Medicine Minoo Garcia Supervis ion Of Other in [facility] Unspecified [address] [place] [address] Social History Tobacco Use Types Packs/Day Years [...] do you attend pentecostalism or Never 2021 rastafarian services? Do you [...] place to sleep or slept in a m[facility]p (including now)? Education Answer Date Recorded What is the highest level of school you have completed or 12 th grade 05/17/2021 the highest degree you have received? Sex Assigned at Date Recorded Female 12/02/2021 5:19 PM RADIO COMMUNICATIONS SUPERINTENDENT documented as of this encounter Medications at [...] Encounter For Results for this , S RADIO COMMUNICATIONS SUPERINTENDENT Supervision Of Other procedu re are in Normal the results Unspecified section. Trimester HIV-1/-2 AG AND AB Routine 12/20/2021 11:34 AM Encounter For R esults for this SCRN, RADIO COMMUNICATIONS SUPERINTENDENT Supervision Of Other proce dure are in PLASMA Normal the results Unspecified section. Trimester SYPHILIS TOTAL AB Routine 12/20/2021 11:34 AM Encounter For Re sults for this W/ REFLEX S RADIO COMMUNICATIONS SUPERINTENDENT Supervision Of Other procedu re are in Normal the results Unspecified section. Trimester HBS ANTIGEN Routine 12/20/2021 11:34 AM Encounter For Results for this , S RADIO COMMUNICATIONS SUPERINTENDENT Supervision Of Other procedu re are in Normal the results Unspecified section. Trimester ABORH, RBC Routine 12/20/2021 11:34 AM Encounter For Results for this RADIO COMMUNICATIONS SUPERINTENDENT Supervision Of Other procedu re are in Normal the results Unspecified section. Trimester RUBELLA ANTIBODIES, Routine 12/20/2021 11:34 AM Encounter For Results for this IGG RADIO COMMUNICATIONS SUPERINTENDENT Supervision Of Other procedu re are in Normal the results Unspecified section. Trimester CBC WITHOUT Routine 12/20/2021 11:34 AM Encounter For Results for this DIFFERENTIAL, B RADIO COMMUNICATIONS SUPERINTENDENT Supervision Of Other proc edure are in Normal the results Unspecified section. Trimester ANTIBODY SCREEN, B Routine 12/20/2021 11:34 AM Encounter For R esults for this RADIO COMMUNICATIONS SUPERINTENDENT Supervision Of Other procedu re are in Normal the results Unspecified section. Trimester documented in this encounter Results Hepatitis C Virus Antibody Screen (12/20/2021 11:34 AM RADIO COMMUNICATIONS SUPERINTENDENT) P athologist Signature HCV Ab Scrn Negative Negative 12/21/2021 [facility] , S 8:10 AM RADIO COMMUNICATIONS SUPERINTENDENT Comment: Dijywx-sr-teuino ratio is <1.00 . Specimen Anatomical Collection Method Collection Time Receive d Time (Source) Location / / Volume Laterality Blood (Blood, 12/20/2021 11:34 12/21/2021 6:40 Venous) AM RADIO COMMUNICATIONS SUPERINTENDENT AM RADIO COMMUNICATIONS SUPERINTENDENT Cheikh Gautam M.D. LAB MICROBIOLOGY - BLOOD ORD ERABLES Performing Organization Address City/[facility]/ZIP Code Phon e Number [facility] [address] [place] [address] [place] [address] [place] [address] Laboratory Medicine and Pathology [address] SANDOV[place] Syphilis Total Ab w/ Reflex, Serum (12/20/2021 11:34 AM RADIO COMMUNICATIONS SUPERINTENDENT) Patholo gist Method Time Signature Syphilis Nonreactive Nonreactive 12/21/2021 [facility] Total Ab w/ 11:40 AM RADIO COMMUNICATIONS SUPERINTENDENT Reflex Comment: No serologic evidence of infection with T. pallidum (syphilis). ??Repeat testing may be cons idered in patients with suspected acute or primary syphilis in 2-4 weeks. For additional information on interpreta tion of the syphilis reverse algorithm and resul ts, see: [email or web address] it-[email or web address]_Serology_Algorithm.p df Specimen Anatomical Collection Method Collection Time Receive d Time (Source) Location / / Volume Laterality Blood (Blood, 12/20/2021 11:34 12/20/2021 6:27 Venous) AM RADIO COMMUNICATIONS SUPERINTENDENT PM RADIO COMMUNICATIONS SUPERINTENDENT Cheikh Gautam M.D. LAB BLOOD ADD-ON Performing Organization Address City/[facility] Phon e Number [address] [phone] [place] [address] System in [address] Rubella Antibodies, IgG (12/20/2021 11:34 AM RADIO COMMUNICATIONS SUPERINTENDENT) P athologist Signature Rubella Ab, Positive 12/21/2021 [facility] IgG, S 11:40 AM RADIO COMMUNICATIONS SUPERINTENDENT Comment: Results suggest response to immunization or prior exposure to the virus. ----REFERENCE VALUE---- Vaccinated: Positive (>=1.0 AI) Unvaccinated: Negative (<=0.7 AI) Rubella IgG Antibody Index 2.6 12/21/2021 11 :40 AM RADIO COMMUNICATIONS SUPERINTENDENT [facility] Specimen Anatomical Collection Method Collection Time Receive d Time (Source) Location / / Volume Laterality Blood (Blood, 12/20/2021 11:34 12/20/2021 6:27 Venous) AM RADIO COMMUNICATIONS SUPERINTENDENT PM RADIO COMMUNICATIONS SUPERINTENDENT Cheikh Gautam M.D. LAB MICROBIOLOGY - BLOOD ORD ERABLES Performing Organization Address City/State/ZIP Code Phon e Number [facility]- [address] [place] [phone] [place] [address] System [address] HIV-1/-2 Ag and Ab Scrn, Plasma (12/20/2021 11:34 AM RADIO COMMUNICATIONS SUPERINTENDENT) P athologist Signature HIV Ag/Ab Negative Negative 12/21/2021 [facility] Scrn, 11:40 AM RADIO COMMUNICATIONS SUPERINTENDENT P Comment: Negative result does not rule out HIV in fection. If exposure to HIV infection occurred <14 d ays ago, contact the laboratory to request additi on of HIV-1 RNA detection / quantification test. HIV-1 p24 Ag Scrn, P Negative Negative 12/21/2021 11:40 AM RADIO COMMUNICATIONS SUPERINTENDENT [facility] Comment: Negative result does not rule out HIV in fection. If exposure to HIV infection occurred <14 d ays ago, contact the laboratory to request additi on of HIV-1 RNA detection / quantification test. HIV-1 Ab Scrn, P Negative Negative 12/21/2021 11: 40 AM RADIO COMMUNICATIONS SUPERINTENDENT [facility] Comment: Negative result does not rule out HIV in fection. If exposure to HIV infection occurred <14 d ays ago, contact the laboratory to request additi on of HIV-1 RNA detection / quantification test. HIV-2 Ab Scrn, P Negative Negative 12/21/2021 11: 40 AM RADIO COMMUNICATIONS SUPERINTENDENT [facility] Comment: Negative result does not rule out HIV in fection. If exposure to HIV infection occurred <14 d ays ago, contact the laboratory to request additi on of HIV-1 RNA detection / quantification test. Specimen Anatomical Collection Method Collection Time Receive d Time (Source) Location / / Volume Laterality Blood (Blood, 12/20/2021 11:34 12/20/2021 6:27 Venous) AM RADIO COMMUNICATIONS SUPERINTENDENT PM RADIO COMMUNICATIONS SUPERINTENDENT Cheikh Gatuam M.D. LAB MICROBIOLOGY - BLOOD ORD ERABLES Performing Organization Address City/State/ZIP Code Phon e Number [facility]- [address] [place] [phone] [facility] [place] [address] System in [address] HBs Antigen , Serum (12/20/2021 11:34 AM RADIO COMMUNICATIONS SUPERINTENDENT) [facility] Method Time Signature HBs Antigen Non reactive Non reactive 12/20/2021 AUST , S 4:50 PM RADIO COMMUNICATIONS SUPERINTENDENT Specimen Anatomical Collection Method Collection Time Receive d Time (Source) Location / / Volume Laterality Blood (Blood, 12/20/2021 11:34 12/20/2021 3:49 Venous) AM RADIO COMMUNICATIONS SUPERINTENDENT PM RADIO COMMUNICATIONS SUPERINTENDENT Cheikh Gautam M.D. LAB MICROBIOLOGY - BLOOD ORD ERABLES Performing Organization Address City/State/ZIP Code Phon e Number [facility]- [address] [place] [address] [place] [facility] [place] [address] [facility] [address] (ABNORMAL) CBC without Differential (12/20/2021 11:34 AM RADIO COMMUNICATIONS SUPERINTENDENT) [facility] Method Time Signature Hemoglobin 14.1 11.6 - 12/20/2021 [facility] 15.0 g/dL 11:44 AM RADIO COMMUNICATIONS SUPERINTENDENT Hematocrit 41.0 35.5 - 12/20/2021 [facility] 44.9 % 11:44 AM RADIO COMMUNICATIONS SUPERINTENDENT Erythrocytes 4.91 3.92 - 12/20/2021 [facility] 5.13 11:44 AM RADIO COMMUNICATIONS SUPERINTENDENT x10(12)/L MCV 83.5 78.2 - 12/20/2021 [facility] 97.9 fL 11:44 AM RADIO COMMUNICATIONS SUPERINTENDENT RBC Distrib Width 11.7 (L) 12.2 - 12/20/2021 [facility] 16.1 % 11:44 AM RADIO COMMUNICATIONS SUPERINTENDENT Platelet Count 360 157 - 371 12/20/2021 [facility] x10(9)/L 11:44 AM RADIO COMMUNICATIONS SUPERINTENDENT Leukocytes 11.1 (H) 3.4 - 9.6 12/20/2021 [facility] x10(9)/L 11:44 AM RADIO COMMUNICATIONS SUPERINTENDENT Specimen Anatomical Collection Method Collection Time Receive d Time (Source) Location / / Volume Laterality Blood (Blood, 12/20/2021 11:34 12/20/2021 Venous) AM RADIO COMMUNICATIONS SUPERINTENDENT 11:40 AM RADIO COMMUNICATIONS SUPERINTENDENT Cheikh M Dain M.D. LAB BLOOD ADD-ON Performing Organization Address City/[facility]/ZIP Code Phon e Number [facility]- [address] [place] [address] [facility] [facility] [place] [address] System in [place] [address] Antibody Screen, RBC (with reflex Antibody ID) (12/20/2021 11:34 AM RADIO COMMUNICATIONS SUPERINTENDENT) P athologist Signature Antibody Screen NEG 12/20/2021 AUST 5:16 PM RADIO COMMUNICATIONS SUPERINTENDENT Specimen Anatomical Collection Method Collection Time Receive d Time (Source) Location / / Volume Laterality Blood (Blood, 12/20/2021 11:34 12/20/2021 3:49 Venous) AM RADIO COMMUNICATIONS SUPERINTENDENT PM RADIO COMMUNICATIONS SUPERINTENDENT Cheikh Gautam M.D. LAB BLOOD BANK TEST ORDERABL ES Performing Organization Address City/[facility]/ZIP [facility] Phon e Number [facility]- [address] [place] [address] [facility] [place], [place] [address] [place] [address] [address] [facility] ABORh, RBC (12/20/2021 11:34 AM RADIO COMMUNICATIONS SUPERINTENDENT) P athologist Signature ABO Group O 12/20/2021 5:16 AUST PM RADIO COMMUNICATIONS SUPERINTENDENT Rh Type POS 12/20/2021 5:16 AUST PM RADIO COMMUNICATIONS SUPERINTENDENT Specimen Anatomical Collection Method Collection Time Receive d Time (Source) Location / / Volume Laterality Blood (Blood, 12/20/2021 11:34 12/20/2021 3:51 Venous) AM RADIO COMMUNICATIONS SUPERINTENDENT PM RADIO COMMUNICATIONS SUPERINTENDENT Cheikh Gautam M.D. LAB BLOOD BANK TEST ORDERABL ES Performing Organization Address City/[facility]/ZIP [facility] Phon e Number [facility]- [address] [place] [address] [facility] [place], [place] [address] [place] [address] [address] [facility] documented in this encounter Visit Diagnoses Diagnosis Encounter For Supervision Of Other Stella l Unspecified Trimester (HCC) documented in this encounter Additional Health Concerns Assessment Noted Time PHQ-9 Depression Total Score: 4 12/20/2021 10:52 AM CS T documented as of this encounter Care Teams Precision Assembler Relationship Specialty Start Date End Date Ben Arce M.D. PCP - General Family Medicine 01/13/[address] [place] [address] documented as of this encounter
--- OUTSIDE RECORDS SUMMARY | 2022-06-18 19:26 | XMS_ITS | Encounter Summary ---
:1990 Author Organization [facility] Address [address] [place] [address] Care Team Providers Name Role Phone Ben Arce M.D. Primary Care Provider Encounter Details Date Type Department Care Team Description 12/20/2021 Orders Only Department of Obstetrics and Gau Terrence zamarripa M.D. Gynecology in [address] [address] [place] [address] [phone] Social History Tobacco Use Types Packs/Day Years [...] do you attend tenriism or Never 2021 christianity services? Do you [...] at Date Recorded Female 12/02/2021 5:19 PM REHAB TECH documented as of this encounter Plan of Treatment Not on filedocumented as of this encounter Visit Diagnoses Not on filedocumented in this encounter Additional Health Concerns Assessment Noted Time PHQ-9 Depression Total Score: 4 12/20/2021 10:52 AM CS T documented as of this encounter Care Teams Analysis Lead Relationship Specialty Start Date End Date Ben Arce M.D. PCP - General Family Medicine 01/13/[address] [place] [phone] documented as of this encounter
--- OUTSIDE RECORDS SUMMARY | 2022-06-18 19:26 | XMS_ITS | Encounter Summary ---
:1990 Author Organization [facility] Address [address] [place] [address] Care Team Providers Name Role Phone Ben Arce M.D. Primary Care Provider Reason for Visit Reason Comments Routine Visit Patient seen in L&D yesterda y for decreased movement and spotting Outpatient (Routine) - Authorized Specialty Diagnoses / Procedures Referred By Contact Refer red To Contact Obstetrics and Cheikh Gautam [facility] Gynecology M.DMaribell Referral ID Status Reason Start Date Expiration Date Visits V isits Requested Authorized [id number] Authorized 12/20/2021 12/20/2022 15 15 Encounter Details Date Type Department Care Team Description 04/18/2022 Routine Department of Rylie Mcdowell, 23 Weeks Gestation Obstetrics and M.D. ([facility]) Gynecology in [address] (Primary Dx) [place] [address] [address] [facility] [address] [place], [place] [phone] [address] (Work) [phone] Social History Tobacco Use Types Packs/Day Years [...] do you attend temple or Never 2021 roman catholic services? 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 PCP - General Family Medicine 01/13/[address] [facility] [phone] documented as of this encounter
--- OUTSIDE RECORDS SUMMARY | 2022-06-18 19:26 | XMS_ITS | Encounter Summary ---
:1990 Author Organization [facility] Address [address] [place] [address] Care Team Providers Name Role Phone Ben Arce M.D. Primary Care Provider Encounter Details Date Type Department Care Team Description 02/01/2022 Hospital Encounter Department of Terrence Swenson High Risk Laboratory Medicine MGonzalez in [address] [address] [place], [place] [phone] [address] (Work) [phone] Social History Tobacco Use Types Packs/Day Years [...] do you attend buddhism or Never 2021 synagogue services? 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 documented in this encounter Results [id number] Plus-Sent Out Lab (02/01/2022 9:52 AM CDT) [...] Organization Address City/State/ZIP Code Phon e Number [facility] [address] [place] [address] [employer] [facility] [place] [address] [employer] [address] documented in this encounter Visit Diagnoses Diagnosis High Risk (HCC) documented in this encounter Additional Health Concerns Assessment Noted Time PHQ-9 Depression Total Score: 4 12/20/2021 10:52 AM CS T documented as of this encounter Care Teams Bowling Ball Mold Assembler Relationship Specialty Start Date End Date Ben Arce M.D. PCP - General Family Medicine 01/13/[address] [facility] [place] [address] documented as of this encounter
--- OUTSIDE RECORDS SUMMARY | 2022-06-18 19:26 | XMS_ITS | Encounter Summary ---
:1990 Author Organization [facility] Address [address] [place] [address] Care Team Providers Name Role Phone Ben Arce M.D. Primary Care Provider Reason for Visit Reason Comments Routine Visit 20weeks Outpatient (Routine) - Authorized Specialty Diagnoses / Procedures Referred By Contact Refer red To Contact Obstetrics and Cheikh Gautam [facility] william Gynecology Minoo Referral ID Status Reason Start Date Expiration Date Visits V isits Requested Authorized [id number] Authorized 12/20/2021 12/20/2022 15 15 Encounter Details Date Type Department Care Team Description 03/27/2022 Routine Department of Cheikh Gautam k (HCC) (Primary Dx); Obstetrics and Minoo Garcia Encounter For Supervision Of Normal Unspecified Trimester (HCC) Gynecology in [place], [place] [address] [place] [address] Social History Tobacco Use Types Packs/Day Years [...] do you attend orthodox or Never 2021 taoist services? 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 documented in this encounter Plan of Treatment Not on filedocumented as of this encounter Procedures Procedure Name Priority Date/Time Associated Diagnosis Comme nts CHLAMYDIA/GONORRHOE Routine 03/27/2022 10:42 AM High Risk Preg roberta Results for this AE AMPLIFIED RNA CDT ([facility]) procedure a re in the [...] M.D. LAB URINE ORDERABLES Performing Organization Address City/[facility]/ZIP Code Phon e Number [place] [address] [address] [place], [place] [address] [facility] [place] [id number] [address] ALT (Alanine Aminotransferase) (03/31/2022 5:31 PM CDT) Patholo gist Method Time Signature Alanine 10 7 - 45 03/31/2022 NPRG Aminotransferase U/L 5:59 PM CDT (ALT), P Specimen Anatomical Collection Method Collection Time Receive d Time (Source) Location / / Volume Laterality Blood (Blood, 03/31/2022 5:31 PM 03/31/20 5:34 Venous) CDT PM CDT Chiekh Gautam M.D. LAB BLOOD ADD-ON Performing Organization Address City/[facility] Phon e Number [address] [address] [place] [place] [id number] AST (Aspartate Aminotransferase) (03/31/2022 5:31 PM CDT) [facility] Method Time Signature Aspartate 13 8 - 43 03/31/2022 NPRG Aminotransferase U/L 5:59 PM CDT (AST), P Specimen Anatomical Collection Method Collection Time Receive d Time (Source) Location / / Volume Laterality Blood (Blood, 03/31/2022 5:31 PM 03/31/20 22 5:34 Venous) CDT PM CDT Cheikh Gautam M.D. LAB BLOOD ADD-ON Performing Organization Address City/[facility]/ZIP Code Phon e Number [place] [address] [address] [place], [place] [address] [facility] [place] [phone] (ABNORMAL) Creatinine with Estimated GFR (03/31/2022 5:31 PM CDT) Analysis Performed At [facility] logist Time Signature Creatinine 0.58 (L) 0.59 - 03/31/2022 [place]G 1.04 mg/dL 5:59 PM CDT eGFR-Black/Afri >90 >=60 03/31/2022 NPRG can Nepalese mL/min/BSA 5:59 PM CDT Comment: ----ADDITIONAL INFORMATION---- [...] M.D. LAB BLOOD ADD-ON Performing Organization Address City/[facility] Phon e Number [facility]- [address] [place] [address] [place] [address] [place] [address] Chlamydia / Gonorrhoeae Amplified RNA (03/27/2022 10:42 AM CDT) [facility] gist Method Time Signature Source Urine, 03/27/2022 [...] - GENERAL O RDERABLES Performing Organization Address City/[facility]/ZIP Code Phon e Number [facility]- [address] [place] [address] [place] [address] System in [place] [address] [facility] documented in this encounter Visit Diagnoses Diagnosis High Risk (HCC) - Primary Encounter For Supervision Of Normal Preg roberta Unspecified Trimester (HCC) documented in this encounter Additional Health Concerns Assessment Noted Time PHQ-9 Depression Total Score: 4 12/20/2021 10:52 AM CS T documented as of this encounter Care Teams Advanced Research Programs Director Relationship Specialty Start Date End Date Ben Arce M.D. PCP - General Family Medicine 01/13/[address] [place] [address] documented as of this encounter
--- OUTSIDE RECORDS SUMMARY | 2022-06-18 19:27 | XMS_ITS | Encounter Summary ---
:1990 Author Organization [facility] Address [address] [place] [address] Care Team Providers Name Role Phone Elsewhere, Pcp Primary Care Provider Unavailable Reason for Visit Reason Comments Pain In Limb Follow up on left elbow Outpatient (Routine) - Closed Specialty Diagnoses / Procedures Referred By Contact Refer red To Contact Family Medicine Zack Macdonald M.D. [facility] Region [address] [place] [address] Referral ID Status Reason Start Date Expiration Date Visits Requ ested Visits Authorized [id number] Closed 12/16/2020 12/16/2021 1 1 Encounter Details Date Type Department Care Team Description 12/24/2020 Office Visit Department of Donya Fitzgerald Pain Elbow Left Medicine in [facility], FATOU, C.N.P., (Primary Dx) [place], [place] D.N.P. [address] [place] [phone] Social History Tobacco Use Types Packs/Day Years [...] you attend roman catholic or Never 2021 jehovah's witness services? 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 documented as of this encounter Last Filed Vital Signs Vital Sign Reading Time Taken Comments Blood Pressure 128/80 12/24/2020 3:26 PM TRAINING AND DEVELOPMENT ASSISTANT Pulse 80 12/24/2020 3:26 PM TRAINING AND DEVELOPMENT ASSISTANT Temperature 36.4 ??C (97.5 ??F) 12/24/2020 3:26 PM TRAINING AND DEVELOPMENT ASSISTANT Respiratory Rate - - Oxygen Saturation 97% 12/24/2020 3:26 PM TRAINING AND DEVELOPMENT ASSISTANT Inhaled Oxygen Concentration - - Weight 72.1 kg (158 lb 15.2 oz) 12/24/2020 3:26 PM TRAINING AND DEVELOPMENT ASSISTANT Height - - Body Mass Index 31.21 12/14/2020 5:24 PM TRAINING AND DEVELOPMENT ASSISTANT documented in this encounter Progress Notes Donya [...] plan of care. Donya Lind, MIGUELANGEL, DNP NING AND DEVELOPMENT ASSISTANT documented in this encounter Plan of Treatment Not on filedocumented as of this encounter Visit Diagnoses Diagnosis Pain Elbow Left - Primary documented in this encounter Care Teams Cell Builder Relationship Specialty Start Date End Date Elsewhere, Pcp PCP - General Family Medicine 01/08/18 01/12/21 documented as of this encounter
--- OUTSIDE RECORDS SUMMARY | 2022-06-18 19:27 | XMS_ITS | Encounter Summary ---
:1990 Author Organization [facility] Address [address] [place] [address] Care Team Providers Name Role Phone Elsewhere, Pcp Primary Care Provider Unavailable Reason for Referral Outpatient (Routine) - Closed Specialty Diagnoses / Procedures Referred By Contact Refer red To Contact Family Medicine Donya Lind APRN, [facility] C.N.P., D.N.P. Referral ID Status Reason Start Date Expiration Date Visits Requ ested Visits Authorized [id number] Closed 01/07/2021 01/07/2022 1 1 Reason for Visit Reason Comments Follow-up Follow up Elbow Encounter Details Date Type Department Care Team Description 01/07/2021 Office Visit Department of Donya Fitzgerald Pain Elbow Left (Primary Dx); Medicine in [facility] FATOU Lu C.N.PMaribell, Rhinitis Allergic [place], [place] D.N.P. [address] [place] [address] Social History Tobacco Use Types Packs/Day Years [...] or relatives? How often do you attend sabianist or Never 2021 anglican services? 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 She works at [employer] and has continued to wear sling at [...] plan of care as outlined. Donya Lind, INTELLIGENCE APPLICATIONS, DNP documented in this encounter Plan of Treatment Scheduled Referrals Name Type Priority Associated Diagnoses Order S [facility] Family Medicine Outpatient Referral Routine Expec taurus: office visit 02/07/2021 (clinic) (Approximate), Expires: 01/08/2024 documented as of this encounter Visit Diagnoses Diagnosis Pain Elbow Left - Primary Rhinitis Allergic documented in this encounter Care Teams Air Filler Relationship Specialty Start Date End Date Elsewhere, Pcp PCP - General Family Medicine 01/08/18 01/12/21 documented as of this encounter
--- OUTSIDE RECORDS SUMMARY | 2022-06-18 19:27 | XMS_ITS | Encounter Summary ---
:1990 Author Organization [facility] Address [address] [place] [address] Care Team Providers Name Role Phone Elsewhere, Pcp Primary Care Provider Unavailable Reason for Visit Physical Therapy (Routine) - Denied Specialty Diagnoses / Procedures Referred By Contact Refer red To Contact Diagnoses Tendonitis Loulou Teresa APRN, [facility] Procedures PT Evaluate and treat C.N.P. [address] [place] [address] Referral ID Status Reason Start Date Expiration Date Visits Requ ested Visits Authorized [id number] Denied 06/08/2020 10/21/2020 1 0 Encounter Details Date Type Department Care Team Description 06/30/2020 Comprehensive Visit Department of Physical Loulou Metz APRN, C.N.P. [address] [place] [phone] Tendonitis Elbow (Primary Dx); Medicine and Yunior Robins P.TMaribell [address] [place] [phone] Tendonitis Rehabilitation in [place], [place] [address] [place] [phone] Social History Tobacco Use Types Packs/Day Years [...] do you attend advent or Never 2021 baptist services? Do you belong to any clubs or No 11/20/2021 organizations such as advent groups, unions, fraUSDS or athletic groups, or school groups? How [...] at Date Recorded Female 12/02/2021 5:19 PM FOUNDRY MELT SUPERVISOR documented as of this encounter Consult Notes [...] upper extremity pain/tendinitis Onset Date: 06/08/20 Payor: [facility] [place] CARE / Plan: [facility] CARE RESTRICTED PLAN / Product Type: Medicaid HMO / [facility] Visit Count: 1 [employer]ICAL / [...] Patient works 40 hours at the local [employer]. Patient has a 7-1/2-year-old son. 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 Patient works the [...] Department of Physical Medicine and Rehabilitation in [address] [address] Dept: [phone] DRY MELT SUPERVISOR documented in this encounter Plan of Treatment Not on filedocumented as of this encounter Visit Diagnoses Diagnosis Tendonitis Elbow - Primary Tendonitis documented in this encounter Care Teams Bullet Lubricant Mixer Relationship Specialty Start Date End Date Elsewhere, Pcp PCP - General Family Medicine 01/08/18 01/12/21 documented as of this encounter
--- OUTSIDE RECORDS SUMMARY | 2022-06-18 19:27 | XMS_ITS | Encounter Summary ---
:1990 Author Organization [facility] Address [address] [place] [address] Care Team Providers Name Role Phone Ben Arce M.D. Primary Care Provider Reason for Visit Reason Comments Sinusitis Sinus pressure / sinus drain age/ sinus congestion x 6 weeks Encounter Details Date Type Department Care Team Description 11/08/2021 [facility] [place], [facility] [address] [facility] [address] [place] [phone] Social History Tobacco Use Types Packs/Day Years [...] or relatives? How often do you attend restorationist or Never 2021 christian services? Do you belong to any clubs or No 11/20/2021 organizations such as restorationist groups, unions, fraternal or athletic groups, or [...] at Date Recorded Female 12/02/2021 5:19 PM BATTALION FIRE CHIEF documented as of this encounter Last Filed Vital Signs Vital Sign Reading Time Taken Comments Blood Pressure 126/78 11/08/2021 12:40 PM BATTALION FIRE CHIEF Pulse 78 11/08/2021 12:40 PM BATTALION FIRE CHIEF Temperature 37 ??C (98.6 ??F) 11/08/2021 12:40 PM BATTALION FIRE CHIEF Respiratory Rate 16 11/08/2021 12:40 PM BATTALION FIRE CHIEF Oxygen Saturation 98% 11/08/2021 12:40 PM BATTALION FIRE CHIEF Inhaled Oxygen Concentration - - Weight 72.1 kg (158 lb 14.4 oz) 11/08/2021 12:40 PM BATTALION FIRE CHIEF Height 155 cm (5' 1.02) 11/08/2021 12:40 PM BATTALION FIRE CHIEF Body Mass Index 30 11/08/2021 12:40 PM BATTALION FIRE CHIEF documented in this encounter Patient Instructions Patient InstructionsArely Ferrell APRN, C.N.P. - 11/08/2021 12:30 PM BATTALION FIRE CHIEF Steam, frequent showers to break up mucus in back of throat. Follow up if not gradually improving over the next 7-10 days or sooner if symptoms would worsen. ALION FIRE CHIEF AttachmentsThe following attachments cannot be sent through Care Everywhere. Sinusitis (Rhinosinusitis) (Upper Sorbian)documented in this encounter Progress Notes Arely Ferrell [...] discussed and reviewed in AVS. Discharged from [facility] in stable condition. I personally spent 20 minutes in total care of the patient today. ALION FIRE CHIEF documented in this encounter Plan of Treatment Not on filedocumented as of this encounter Visit Diagnoses Diagnosis Sinusitis - Primary documented in this encounter Care Teams Head Girls Golf Coach Relationship Specialty Start Date End Date Ben Arce M.D. PCP - General Family Medicine 01/13/[address] [place] [address] documented as of this encounter
--- OUTSIDE RECORDS SUMMARY | 2022-06-18 19:27 | XMS_ITS | Encounter Summary ---
:1990 Author Organization [facility] Address [address] [place] [address] Care Team Providers Name Role Phone Elsewhere, Pcp Primary Care Provider Unavailable Encounter Details Date Type Department Care Team Description 01/07/2021 Hospital Encounter Department of Renae, Zack Hammer, Pain Elbow Left Radiology, [facility], in [place] [address] [place], [place] [address] [place] [address] [place], [place] [phone] (Work) [phone] Social History Tobacco Use Types Packs/Day Years [...] do you attend adventism or Never 2021 taoist services? 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
--- OUTSIDE RECORDS SUMMARY | 2022-06-18 19:27 | XMS_ITS | Encounter Summary ---
:1990 Author Organization [facility] Address [address] [place] [address] Care Team Providers Name Role Phone Ben Arce M.D. Primary Care Provider Reason for Visit Reason Comments Nurse Visit NOB ED/INTAKE APPT Encounter Details Date Type Department Care Team Description 12/08/2021 Virtual Visit Department of Terrence Swenson M.D. [address] [address] Encounter For Supervision Of Other Stella l Unspecified Trimester (Primary Dx); Obstetrics and Autumn Patel R.N. [address] [address] Examination Test With Positive Result Gynecology in [place], [place] [address] [address] Social History Tobacco Use Types [...] do you attend adventist or Never 2021 yarsani services? Do you [...] at Date Recorded Female 12/02/2021 5:19 PM GLASS POLISHER documented as of this encounter Patient Instructions [...] Provided Today: Beginnings: , , and Be[facility] brochure-[facility] S POLISHER documented in this encounter Progress Notes Autumn Patel R.N. - 12/08/2021 1:30 PM CST Consult conducted via real-time audio/video technology by Autumn Patel R.N. in [facility] to the patient in Patient's Home. episode opened-please see history for details. Conceived with Nexplanon in place-this was removed after positive Beta Hcg. 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 Denies concerns. Encouraged to call with questions or concerns. S POLISHER documented in this encounter Plan of Treatment Not on filedocumented as of this encounter Results Hepatitis C Virus Antibody Screen (12/20/2021 11:34 AM GLASS POLISHER) athologist Signature HCV Ab Scrn Negative Negative 12/21/2021 [facility] , S 8:10 AM GLASS POLISHER Comment: Moednj-xy-nlbzlz ratio is <1.00 . Specimen Anatomical Collection Method Collection Time Receive d Time (Source) Location / / Volume Laterality Blood (Blood, 12/20/2021 11:34 12/21/2021 6:40 Venous) AM GLASS POLISHER AM GLASS POLISHER Cheikh Gautam M.D. LAB MICROBIOLOGY - BLOOD ORD ERABLES Performing Organization Address City/State/ZIP Code Phon e Number [facility] [address] [place] [phone] [facility] [place] [address] Laboratory Medicine and Pathology [address] [place] Syphilis Total Ab w/ Reflex, Serum (12/20/2021 11:34 AM GLASS POLISHER) [facility] Method Time Signature Syphilis Nonreactive Nonreactive 12/21/2021 [facility] Total Ab w/ 11:40 AM GLASS POLISHER Reflex Comment: No serologic evidence of infection with T. pallidum (syphilis). ??Repeat testing may be cons idered in patients with suspected acute or primary syphilis in 2-4 weeks. For additional information on interpreta tion of the syphilis reverse algorithm and resul ts, see: [email or web address] it-[email or web address] df Specimen Anatomical Collection Method Collection Time Receive d Time (Source) Location / / Volume Laterality Blood (Blood, 12/20/2021 11:34 12/20/2021 6:27 Venous) AM GLASS POLISHER PM GLASS POLISHER Cheikh Gautam M.D. LAB BLOOD ADD-ON Performing Organization Address City/[facility] Phon e Number [facility]- [address] [place] [phone] [place] [address] System in [address] Rubella Antibodies, IgG (12/20/2021 11:34 AM GLASS POLISHER) athologist Signature Rubella Ab, Positive 12/21/2021 [facility] IgG, S 11:40 AM GLASS POLISHER Comment: Results suggest response to immunization or prior exposure to the virus. ----REFERENCE VALUE---- Vaccinated: Positive (>=1.0 AI) Unvaccinated: Negative (<=0.7 AI) Rubella IgG Antibody Index 2.6 12/21/2021 11 :40 AM GLASS POLISHER [facility] Specimen Anatomical Collection Method Collection Time Receive d Time (Source) Location / / Volume Laterality Blood (Blood, 12/20/2021 11:34 12/20/2021 6:27 Venous) AM GLASS POLISHER PM GLASS POLISHER Cheikh Gautam M.D. LAB MICROBIOLOGY - BLOOD ORD ERABLES Performing Organization Address City/State/ZIP Code Phon e Number [facility]- [address] [place] [phone] [place] [address] System in [address] HIV-1/-2 Ag and Ab Scrn, Plasma (12/20/2021 11:34 AM GLASS POLISHER) P athologist Signature HIV Ag/Ab Negative Negative 12/21/2021 [facility] Scrn, 11:40 AM GLASS POLISHER P Comment: Negative result does not rule out HIV in fection. If exposure to HIV infection occurred <14 d ays ago, contact the laboratory to request additi on of HIV-1 RNA detection / quantification test. HIV-1 p24 Ag Scrn, P Negative Negative 12/21/2021 11:40 AM GLASS POLISHER [place] Comment: Negative result does not rule out HIV in fection. If exposure to HIV infection occurred <14 d ays ago, contact the laboratory to request additi on of HIV-1 RNA detection / quantification test. HIV-1 Ab Scrn, P Negative Negative 12/21/2021 11: 40 AM GLASS POLISHER [place] Comment: Negative result does not rule out HIV in fection. If exposure to HIV infection occurred <14 d ays ago, contact the laboratory to request additi on of HIV-1 RNA detection / quantification test. HIV-2 Ab Scrn, P Negative Negative 12/21/2021 11: 40 AM GLASS POLISHER [facility] Comment: Negative result does not rule out HIV in fection. If exposure to HIV infection occurred <14 d ays ago, contact the laboratory to request additi on of HIV-1 RNA detection / quantification test. Specimen Anatomical Collection Method Collection Time Receive d Time (Source) Location / / Volume Laterality Blood (Blood, 12/20/2021 11:34 12/20/2021 6:27 Venous) AM GLASS POLISHER PM GLASS POLISHER Cheikh Gautam M.D. LAB MICROBIOLOGY - BLOOD ORD ERAKAMALJIT Performing Organization Address City/State/ZIP Code Phon e Number [facility]- [address] [place] [address], [place] [phone] [place] [address] System in [place] HBs Antigen , Serum (12/20/2021 11:34 AM GLASS POLISHER) [facility] Method Time Signature HBs Antigen Non reactive Non reactive 12/20/2021 [facility] , S 4:50 PM GLASS POLISHER Specimen Anatomical Collection Method Collection Time Receive d Time (Source) Location / / Volume Laterality Blood (Blood, 12/20/2021 11:34 12/20/2021 3:49 Venous) AM GLASS POLISHER PM GLASS POLISHER Cheikh Gautam M.D. LAB MICROBIOLOGY - BLOOD ORD ERAKAMALJIT Performing Organization Address City/State/ZIP Code Phon e Number [facility]- [address] [place] [address] [facility] [place] [place], [place] [id number] [place] [address] (ABNORMAL) CBC without Differential (12/20/2021 11:34 AM GLASS POLISHER) [facility] Method Time Signature Hemoglobin 14.1 11.6 - 12/20/2021 [facility] 15.0 g/dL 11:44 AM GLASS POLISHER Hematocrit 41.0 35.5 - 12/20/2021 [facility] 44.9 % 11:44 AM GLASS POLISHER Erythrocytes 4.91 3.92 - 12/20/2021 [facility] 5.13 11:44 AM GLASS POLISHER x10(12)/L MCV 83.5 78.2 - 12/20/2021 [facility] 97.9 fL 11:44 AM GLASS POLISHER RBC Distrib Width 11.7 (L) 12.2 - 12/20/2021 [facility] 16.1 % 11:44 AM GLASS POLISHER Platelet Count 360 157 - 371 12/20/2021 [facility] x10(9)/L 11:44 AM GLASS POLISHER Leukocytes 11.1 (H) 3.4 - 9.6 12/20/2021 [facility] x10(9)/L 11:44 AM GLASS POLISHER Specimen Anatomical Collection Method Collection Time Receive d Time (Source) Location / / Volume Laterality Blood (Blood, 12/20/2021 11:34 12/20/2021 Venous) AM GLASS POLISHER 11:40 AM GLASS POLISHER Cheikh Gautam M.D. LAB BLOOD ADD-ON Performing Organization Address City/State/ZIP Code Phon e Number [facility]- [address] [facility] [place] [address] [place] [address] System in [place] [address] Antibody Screen, RBC (with reflex Antibody ID) (12/20/2021 11:34 AM GLASS POLISHER) P athologist Signature Antibody Screen NEG 12/20/2021 [facility] 5:16 PM GLASS POLISHER Specimen Anatomical Collection Method Collection Time Receive d Time (Source) Location / / Volume Laterality Blood (Blood, 12/20/2021 11:34 12/20/2021 3:49 Venous) AM GLASS POLISHER PM GLASS POLISHER Cheikh Gautam M.D. LAB BLOOD BANK TEST ORDERABL ES Performing Organization Address City/[facility]/ZIP Code Phon e Number [facility]- [address] [place] [address] [facility] [place] - [address] ABORh, RBC (12/20/2021 11:34 AM GLASS POLISHER) P athologist Signature ABO Group O 12/20/2021 5:16 [place] PM GLASS POLISHER Rh Type POS 12/20/2021 5:16 AUST PM GLASS POLISHER Specimen Anatomical Collection Method Collection Time Receive d Time (Source) Location / / Volume Laterality Blood (Blood, 12/20/2021 11:34 12/20/2021 3:51 Venous) AM GLASS POLISHER PM GLASS POLISHER Cheikh Gautam M.D. LAB BLOOD BANK TEST ORDERABL ES Performing Organization Address City/State/ZIP Code Phon e Number [facility]- [address] [place] [address] [facility] - [address] Bacterial Culture, Aerobic + Susc, Urine (12/20/2021 11:26 AM GLASS POLISHER) [facility] Method Time Signature Urine Culture No growth 12/21/2021 [facility] after 1 day 8:40 AM GLASS POLISHER of incubation. Specimen Anatomical Collection Method Collection Time Receive d Time (Source) Location / / Volume Laterality Urine (Urine, 12/20/2021 11:26 12/20/2021 2:19 Midstream) AM GLASS POLISHER PM GLASS POLISHER Comment: Specimen Source Site: Urine Cheikh Gautam M.D. LAB MICROBIOLOGY - GENERAL O RDERABLES Performing Organization Address City/State/ZIP Code Phon e Number [facility]- [address] [place] [id number] [place] [address] [place] [address] System [address] Urinalysis with Microscopic if Indicated (12/20/2021 11:26 AM GLASS POLISHER) P athologist Signature Source Urine, 12/20/2021 [facility] Urine, Clean 12:12 PM GLASS POLISHER Catch Clarity Clear Clear 12/20/2021 [facility] 12:12 PM GLASS POLISHER Color Yellow 12/20/2021 [facility] 12:12 PM GLASS POLISHER Comment: ----REFERENCE VALUE---- Colorless Yellow Ronda Blood Negative Negative 12/20/2021 12:12 PM GLASS POLISHER [facility] Nitrite Negative Negative 12/20/2021 12:12 PM GLASS POLISHER [facility] Leukocyte Esterase Negative Negative 12/20/2021 12:[address] [facility] Protein Negative mg/dL 12/20/2021 12:12 PM GLASS POLISHER [facility] Comment: ----REFERENCE VALUE---- Negative Trace Glucose Negative Negative mg/dL 12/20/2021 12:12 PM GLASS POLISHER O FRANSICO Ketone Negative Negative mg/dL 12/20/2021 12:12 PM GLASS POLISHER O FRANSICO Bilirubin Negative Negative 12/20/2021 12:12 PM GLASS POLISHER [facility] pH 6.0 5.0 - 8.0 12/20/2021 12:12 PM GLASS POLISHER [facility] Specific [place] 1.005 1.001 - 1.035 12/20/2021 12:12 PM GLASS POLISHER [facility] Urobilinogen 0.2 0.2 - 1.0 mg/dL 12/20/2021 12:[address] [facility] Specimen Anatomical Collection Method Collection Time Receive d Time (Source) Location / / Volume Laterality Urine (Urine, 12/20/2021 11:26 12/20/2021 Clean Catch) AM GLASS POLISHER 12:06 PM GLASS POLISHER Cheikh Gautam M.D. LAB URINE ORDERABLES Performing Organization Address City/State/ZIP Code Phon e Number [facility]- [address] [place] [address] [place] [address] System in [place] [address] documented in this encounter Visit Diagnoses Diagnosis Encounter For Supervision Of Other Stella l Unspecified Trimester (HCC) - Primary Examination Test With Positive Result (HCC) documented in this encounter Care Teams Handle And Vent Machine Operator Relationship Specialty Start Date End Date Ben Arce M.D. PCP - General Family Medicine 01/13/[address] [place] [address] documented as of this encounter
--- OUTSIDE RECORDS SUMMARY | 2022-06-18 19:27 | XMS_ITS | Encounter Summary ---
:1990 Author Organization [facility] Address [address] [place] [address] Care Team Providers Name Role Phone Ben Arce M.D. Primary Care Provider Reason for Visit Reason Comments Med Refill Encounter Details Date Type Department Care Team Description 05/23/2021 Refill Department of Family Medicine Ben Maynard M.D. Med Refill in [facility] [place] [facility] [address] [place] [phone] (Wo rk) Social History Tobacco Use Types [...] do you attend shinto or Never 2021 uatsdin services? Do you [...] at Date Recorded Female 12/02/2021 5:19 PM INDUCTION MACHINE SETTER documented as of this encounter Miscellaneous Notes Telephone Encounter - Rylie Le RMaribellMKalpesh - 05/23/2021 1:08 PM CDT Medication Name: cetirizine Last Office Visit: 05/18/21 Future Office Visit: none Last Blood Pressure: (12681) 05/18/21 Last Set of Labs: 01/13/21 Patient is restricted to Dr. Ritter for all refills documented in this encounter Plan of Treatment Not on filedocumented as of this encounter Visit Diagnoses Diagnosis Rhinitis Allergic documented in this encounter Care Teams Rug Setter [place] Relationship Specialty Start Date End Date Ben Arce M.D. PCP - General Family Medicine 01/13/[address] [place] [address] documented as of this encounter
--- OUTSIDE RECORDS SUMMARY | 2022-06-18 19:27 | XMS_ITS | Encounter Summary ---
:1990 Author Organization [facility] Address [address] [place] [address] Care Team Providers Name Role Phone Ben Arce M.D. Primary Care Provider Reason for Referral Specialty Diagnoses / Procedures Referred By Contact Refer red To Contact Ben Arce M.D. [facility] Region [address] [place] [address] Referral ID Status Reason Start Date Expiration Date Visits Requ ested Visits Authorized POLE TREATER Encounter Details Date Type Department Care Team Description 11/20/2021 Orders Only [facility] PCP [facility] MNT Kimberly Arce M.D. [address] [place], [place] [phone] (Wo rk) Social History [...] you attend oriental orthodox or Never 2021 pentecostal services? Do you [...] at Date Recorded Female 12/02/2021 5:19 PM WOOD POLE TREATER documented as of this encounter Plan of Treatment Scheduled Referrals Name Type Priority Associated Order Schedule Diagnoses Covid immunization Outpatient Referral Routine Ex pected: office visit Booster 022 (Approximate), Expires: 11/20/2022 documented as of this encounter Visit Diagnoses Not on filedocumented in this encounter Care Teams Director Of Blood Relationship Specialty Start Date End Date Ben Arce M.D. PCP - General Family Medicine 01/13/[address] [place] [facility] [place] [phone] documented as of this encounter
--- OUTSIDE RECORDS SUMMARY | 2022-06-18 19:27 | XMS_ITS | Encounter Summary ---
:1990 Author Organization [facility] Address [address] [place] [address] Care Team Providers Name Role Phone Elsewhere, Pcp Primary Care Provider Unavailable Reason for Referral Outpatient (Routine) - Closed Specialty Diagnoses / Procedures Referred By Contact Refer red To Contact Family Medicine Zack Macdonald M.D. [facility] Region [address] [place] [address] Referral ID Status Reason Start Date Expiration Date Visits Requ ested Visits Authorized [id number] Closed 12/16/2020 12/16/2021 1 1 THERAPY ASST Reason for Visit Reason Comments Follow-up arm injury Encounter Details Date Type Department Care Team Description 12/16/2020 Office Visit Department of Family Zack Macdonald, Pain Elbow Left Medicine in [place]aswinder Hennessy (Primary Dx) [place], [place] [address] [place] [phone] Social History Tobacco Use Types Packs/Day Years [...] or relatives? How often do you attend congregational or Never 2021 buddhist services? Do you belong to any clubs or No 11/20/2021 organizations such as congregational groups, unions, fraSwirl or athletic groups, or school groups? How [...] at Date Recorded Female 12/02/2021 5:19 PM OCC THERAPY ASST documented as of this encounter Last Filed Vital Signs Vital Sign Reading Time Taken Comments Blood Pressure 126/92 12/16/2020 3:16 PM OCC THERAPY ASST Pulse 78 12/16/2020 3:11 PM OCC THERAPY ASST Temperature 36.2 ??C (97.2 ??F) 12/16/2020 3:11 PM OCC THERAPY ASST Respiratory Rate - - Oxygen Saturation 97% 12/16/2020 3:11 PM OCC THERAPY ASST Inhaled Oxygen Concentration - - Weight 72.1 kg (158 lb 14.4 oz) 12/16/2020 3:11 PM OCC THERAPY ASST Height - - Body Mass Index 31.2 12/14/2020 5:24 PM OCC THERAPY ASST documented in this encounter Patient Instructions Patient InstructionsZack Macdonald M.D. - 12/16/2020 3:30 PM CST 1. Make an appointment in 3 weeks for follow-up. 2. Sling as needed for comfort. 3. Continue to work on range of motion with the shoulder and elbow. 4. Tylenol or ibuprofen as needed for discomfort. THERAPY ASST documented in this encounter Progress Notes Zack [...] Tylenol or ibuprofen as needed for discomfort. THERAPY ASST documented in this encounter Plan of Treatment Scheduled Referrals Name Type Priority Associated Diagnoses Order S [facility] Outpatient Referral Routine Expec taurus: office visit [...] soft tissues are normal. Procedure Note Trell Bsos M.D. - 01/07/2021Format ting of this note [...] Left documented in this encounter Care Teams Country Printer Apprentice Relationship Specialty Start Date End Date Elsewhere, Pcp PCP - General Family Medicine 01/08/18 01/12/21 documented as of this encounter
--- OUTSIDE RECORDS SUMMARY | 2022-06-18 19:27 | XMS_ITS | Encounter Summary ---
:1990 Author Organization [facility] Address [address] [place] [address] Care Team Providers Name Role Phone Ben Arce M.D. Primary Care Provider Encounter Details Date Type Department Care Team Description 11/28/2021 Hospital Encounter Department of Erika Jones Laboratory Laboratory Medicine CJ HammerN, Results in [place], C.N.PMaribell, M.S.N. [place] [address] [place] [phone] Social History Tobacco Use Types Packs/Day Years [...] do you attend temple or Never 2021 congregation services? Do you [...] at Date Recorded Female 12/02/2021 5:19 PM MITERING MACHINE OPERATOR documented as of this encounter Medications [...] Abnormal Laboratory Results for this GONADOTROPIN (HCG), MITERING MACHINE OPERATOR Results procedur e are in ROBERTA, the results section. documented in this encounter Results (ABNORMAL) hCG (Human Chorionic Gonadotropin), Quantitative, (11/28/2021 4:00 PM MITERING MACHINE OPERATOR) P athologist Signature HCG, 94 (H) <5 IU/L 11/28/2021 [facility] Quantitative, 7:47 PM MITERING MACHINE OPERATOR , P Comment: Biotin has been identified [...] (Blood, 11/28/2021 4:00 PM 11/28/19 6:56 Venous) MITERING MACHINE OPERATOR PM MITERING MACHINE OPERATOR Erika Jones APRN, C.N.P., M.S.N. LAB BLOOD ADD-ON Performing Organization Address City/State/ZIP Code Phon e Number [facility]- [address] [place], [place] [address] [place] [address] [place] [address] [address] [facility] documented in this encounter Visit Diagnoses Diagnosis Abnormal Laboratory Results documented in this encounter Care Teams Multiple Launch Rocket System Crewmember Relationship Specialty Start Date End Date Ben Arce M.D. PCP - General Family Medicine 01/13/[address] [place] [phone] documented as of this encounter
--- OUTSIDE RECORDS SUMMARY | 2022-06-18 19:27 | XMS_ITS | Encounter Summary ---
:1990 Author Organization [facility] Address [address] [place] [address] Care Team Providers Name Role Phone Elsewhere, Pcp Primary Care Provider Unavailable Reason for Referral Outpatient (Routine) - Closed Specialty Diagnoses / Procedures Referred By Contact Refer red To Contact Diagnoses [facility] Ben Arce M.D. [address] [place] [address] Referral ID Status Reason Start Date Expiration Visits Visits Date Requested Authorized [id number] Closed Continuity of 10/06/2020 10/06/2021 1 1 Care O MACHINE OPERATOR Reason for Visit Reason Comments Communication referral Encounter Details Date Type Department Care Team Description 10/06/2020 Clinical Communication Department of Ben Arce Comm unication Family Medicine in M.DM[place]ib[place] (referral ) [place] [address] [facility] [address] [facility] [phone] Social History Tobacco Use Types Packs/Day Years [...] you attend latter day or Never 2021 roman catholic services? Do [...] at Date Recorded Female 12/02/2021 5:19 PM DITTO MACHINE OPERATOR documented as of this encounter Miscellaneous Notes Telephone Encounter - Wilma Montelongo R.N. - 10/06/2020 4:17 PM CST Pt advised that referral was faxed to [facility]: [phone] O MACHINE OPERATOR Telephone Encounter - Ben Arce M.D. - 10/06/2020 2:55 PM CST External referral order placed. Please fax for patient. Thanks. It should be printed in the office printer. Thanks. O MACHINE OPERATOR Telephone Encounter - Ilene Gautam - 10/06/2020 [...] to send referral for her to see [facility] Dentist in [place]. She is on a restricted program through insurance and they will only cover this if referred by Dr. Arce. She is having a tooth pulled on Sunday. Please fax to fax #[phone]. Please call her to let her know if this is done. Thank you. I will send this information to the appropriate staff member who will look into your concern. Is there anything else I can help you with today? Thank you for calling [facility]. O MACHINE OPERATOR documented in this encounter Plan of Treatment Not on filedocumented as of this encounter Visit Diagnoses Diagnosis [facility] - Primary documented in this encounter Care Teams Pharmaceutical Service Representative Relationship Specialty Start Date End Date Elsewhere, Pcp PCP - General Family Medicine 01/08/18 01/12/21 documented as of this encounter
--- OUTSIDE RECORDS SUMMARY | 2022-06-18 19:27 | XMS_ITS | Encounter Summary ---
:1990 Author Organization [facility] Address [address] [place] [address] Care Team Providers Name Role Phone Ben Arce M.D. Primary Care Provider Reason for Referral Outpatient (Routine) - Authorized Specialty Diagnoses / Procedures Referred By Contact Refer red To Contact Diagnoses Subdermal Implantable Contraceptive Removal Rylie Mcdowell M.D. [facility] Procedures Subdermal Contraceptive Device [facility] [place] [address] Referral ID Status Reason Start Date Expiration Date Visits V isits Requested Authorized [id number] Authorized 12/01/2021 12/01/2022 1 1 MOWER REPAIR MECHANIC Reason for Visit Reason Comments nexplanon removal Early . LMP 10/29/21. Pt will see Dr. Swenson in [place] with [facility] for . Appointment Request (Routine) - Closed Specialty Diagnoses / Procedures Referred By Contact Refer red To Contact Obstetrics and Gynecology Referral ID Status Reason Start Date Expiration Date Visits Requ ested Visits Authorized [id number] Closed 11/29/2021 11/29/2022 1 1 Encounter Details Date Type Department Care Team Description 12/01/2021 Office Visit Department of Rylie Mcdowell Subdermal Imp lancesar Obstetrics and Minoo Contraceptive Removal Gynecology in [address] (Primary Dx) [place], [place] [address] [facility] [address] [place], [place] [phone] (Work) [phone] Social History Tobacco Use Types Packs/Day Years [...] do you attend buddhism or Never 2021 jewish services? Do you [...] at Date Recorded Female 12/02/2021 5:19 PM LAWNMOWER REPAIR MECHANIC documented as of this encounter Last Filed Vital Signs Vital Sign Reading Time Taken Comments Blood Pressure 155/91 12/01/2021 2:56 PM LAWNMOWER REPAIR MECHANIC Pulse 84 12/01/2021 2:56 PM LAWNMOWER REPAIR MECHANIC Temperature 36.2 ??C (97.2 ??F) 12/01/2021 2:56 PM LAWNMOWER REPAIR MECHANIC Respiratory Rate - - Oxygen Saturation - - Inhaled Oxygen Concentration - - Weight 69.5 kg (153 lb 4.8 oz) 12/01/2021 2:56 PM LAWNMOWER REPAIR MECHANIC Height - - Body Mass Index 28.94 11/08/2021 12:40 PM LAWNMOWER REPAIR MECHANIC documented in this encounter Progress Notes Rylie Mcdowell M.D. - 12/01/2021 3:15 PM CST SUBJECTIVE CHIEF COMPLAINT / REASON FOR VISIT Chief Complaint Patient presents with ??? nexplanon removal Early . LMP 10/29/21. Pt will see Dr. Swenson in [place] with [facility] for . HISTORY OF PRESENT CONDITION Lulu [...] and Family: Twice a week ??? Attends Pentecostal Services: Never ??? Active Member of Clubs [...] levels - plan US once HCG above 5301-3195 - Patient is following up at [facility] Diet and exercise, PNV and folate, smoking [...] are no discontinued medications. Rylie Mcdowell M.D. MOWER REPAIR MECHANIC documented in this encounter Procedure Notes Rylie [...] lidocaine POST-PROCEDURE DETAILS Complications: no apparent complications SIDING APPLICATOR MOWER REPAIR MECHANIC documented in this encounter Plan of Treatment Not on filedocumented as of this encounter Procedures Procedure Name Priority Date/Time Associated Diagnosis Comme nts CO RMVL DRUG IMPL Routine 12/01/2021 4:11 PM Subdermal Implant able Results for this LAWNMOWER REPAIR MECHANIC Contraceptive Removal proced ure are in the results section. documented in this encounter Results CO RMVL DRUG IMPL (12/01/2021 4:11 PM LAWNMOWER REPAIR MECHANIC) Narrative [facility]ODAL - 12/01/2021 4:11 PM LAWNMOWER REPAIR MECHANIC Rylie Mcdowell M.D. ? 12/01/2021 ??4:12 PM [...] Primary documented in this encounter Care Teams Art Education Professor Relationship Specialty Start Date End Date Ben Arce M.D. PCP - General Family Medicine 01/13/[address] [place] [address] documented as of this encounter
--- OUTSIDE RECORDS SUMMARY | 2022-06-18 19:27 | XMS_ITS | Encounter Summary ---
:1990 Author Organization [facility] Address [address] [place] [address] Care Team Providers Name Role Phone Elsewhere, Pcp Primary Care Provider Unavailable Reason for Visit Reason Comments Earache Encounter Details Date Type Department Care Team Description 01/02/2021 Nurse Triage Department of [facility] Angella Herbert, Ear ache Medicine in [place], M.S.N., R.N. [place] [address] [place] [address] 1976 Social History Tobacco Use Types Packs/Day [...] do you attend rastafarian or Never 2021 scientologist services? Do you [...] or slept in a m[facility]p (including now)? Sex Assigned at Date Recorded Female 12/02/2021 5:19 PM CHARGING MANIPULATOR documented as of this encounter Miscellaneous Notes [...] medication (e.g., ibuprofen or acetaminophen) Protocols used: [id number] Care Advice Patient/Caregiver understands and will follow care advice?: Yes, able to teach back SEE PCP WITHIN 4 HOURS (OR PCP TRIAGE): * IF OFFICE WILL BE OPEN: You need to be seen within the next 3 or 4 hours. Call your doctor (or SIGNAL TECHNICIAN/PA) now or as soon as the [...] need to be seen. Your doctor (or SIGNAL TECHNICIAN/PA) will want to talk with you [...] on filedocumented in this encounter Care Teams Assistant To The Ceo Relationship Specialty Start Date End Date Elsewhere, Pcp PCP - General Family Medicine 01/08/18 01/12/21 documented as of this encounter
--- OUTSIDE RECORDS SUMMARY | 2022-06-18 19:27 | XMS_ITS | Encounter Summary ---
:1990 Author Organization [facility] Address [address] [place] [address] Care Team Providers Name Role Phone Ben Arce M.D. Primary Care Provider Reason for Visit Reason Comments Med Refill Encounter Details Date Type Department Care Team Description 03/16/2021 Refill Department of Family Medicine Ben Maynard M.D. Med Refill in [facility] [address] [place] [phone] (Wo rk) Social History Tobacco Use Types [...] you attend jehovah's witness or Never 2021 zoroastrianism services? Do you [...] at Date Recorded Female 12/02/2021 5:19 PM DEVICE TEST ENGINEER documented as of this encounter Miscellaneous Notes Telephone Encounter - Celina Goyal RMaribellN. - 03/16/2021 11:58 AM CDT Refills must come from Dr Arce due to a Restricted program Unable to refill per protocol: Name of Medications Needing Refill: Naproxen Last Refill Date: 02/10/21 [id number], 0 refills Last / Future Appointment: 01/13/21 documented in this encounter Plan of Treatment Not on filedocumented as of this encounter Visit Diagnoses Diagnosis Pain Elbow Left documented in this encounter Care Teams Hog Cutter Relationship Specialty Start Date End Date Ben Arce M.D. PCP - General Family Medicine 01/13/[address] [place] [address] documented as of this encounter
--- OUTSIDE RECORDS SUMMARY | 2022-06-18 19:27 | XMS_ITS | Encounter Summary ---
:1990 Author Organization [facility] Address [address] [place] [address] Care Team Providers Name Role Phone Elsewhere, Pcp Primary Care Provider Unavailable Encounter Details Date Type Department Care Team Description 01/07/2021 Clinical Communication Department of [facility] Donya Lind [facility] in [facility], C.N.P.[place], [place] D.N.P. [address] [place] [phone] Social History Tobacco Use Types Packs/Day Years [...] or relatives? How often do you attend gnosticist or Never 2021 restoration services? Do you belong to any clubs or No 11/20/2021 organizations such as gnosticist groups, unions, fraternal or athletic groups, or [...] at Date Recorded Female 12/02/2021 5:19 PM CONCRETE RUBBER documented as of this encounter Miscellaneous Notes [...] patient Please call [facility] before patient arrives... [phone] documented in this encounter Plan of Treatment Not on filedocumented as of this encounter Visit Diagnoses Not on filedocumented in this encounter Care Teams Pool Hand Relationship Specialty Start Date End Date Elsewhere, Pcp PCP - General Family Medicine 01/08/18 01/12/21 documented as of this encounter
--- OUTSIDE RECORDS SUMMARY | 2022-06-18 19:27 | XMS_ITS | Encounter Summary ---
:1990 Author Organization [facility] Address [address] [place] [address] Care Team Providers Name Role Phone Ben Arce M.D. Primary Care Provider Reason for Visit Reason Comments Med Refill Encounter Details Date Type Department Care Team Description 11/24/2021 Refill Department of Family Medicine Ben Maynard M.D. Med Refill in [facility] [address] [place] [phone] (Wo rk) Social History Tobacco Use Types [...] do you attend yarsanism or Never 2021 jewish services? Do you [...] at Date Recorded Female 12/02/2021 5:19 PM PAINTER AIRBRUSH documented as of this encounter Plan of Treatment Not on filedocumented as of this encounter Visit Diagnoses Not on filedocumented in this encounter Care Teams Agriculture Laboratory Technician Relationship Specialty Start Date End Date Ben Arce M.D. PCP - General Family Medicine 01/13/[address] [place] [address] documented as of this encounter
--- OUTSIDE RECORDS SUMMARY | 2022-06-18 19:27 | XMS_ITS | Encounter Summary ---
:1990 Author Organization [facility] Address [address] [place] [address] Care Team Providers Name Role Phone Ben Arce M.D. Primary Care Provider Reason for Visit Reason Comments Other right hand injury---yesterda y Encounter Details Date Type Department Care Team Description 05/18/2021 Office Visit Department of Alexander Estrella Pain Hand Right (Primary Dx); Medicine in [facility] Contusion Hand Initial Right [place], [place] [address] [place] [phone] Social History Tobacco Use Types Packs/Day Years [...] do you attend synagogue or Never 2021 oriental orthodox services? Do you belong to any [...] at Date Recorded Female 12/02/2021 5:19 PM MEASURING MACHINE OPERATOR documented as of this encounter [...] documented in this encounter Progress Notes Alexander Rednon D.O. - 05/18/2021 10:00 AM CDT SUBJECTIVE [...] She had pain limiting her making a [employer] with the thumb and index finger. No [...] Right documented in this encounter Care Teams Auto Inspection Specialist Relationship Specialty Start Date End Date Ben Arce M.D. PCP - General Family Medicine 01/13/[address] [place] [address] documented as of this encounter
--- OUTSIDE RECORDS SUMMARY | 2022-06-18 19:27 | XMS_ITS | Encounter Summary ---
:1990 Author Organization [facility] Address [address] [place] [address] Care Team Providers Name Role Phone Ben [...] Type Department Care Team Description 03/01/2021 Emergency [facility] Valerie Malone Contu sion Head Initial (Primary Dx); Department Minoo Strain Neck Initial [address] [place] [phone] [phone] Social History Tobacco Use Types Packs/Day Years [...] do you attend lutheran or Never 2021 amish services? Do you belong to any clubs [...] at Date Recorded Female 12/02/2021 5:19 PM EUCLID OPERATOR documented as of this encounter Last [...] through Care Everywhere. Facial or Scalp Contusion (Armenian)documented in this encounter Medications at Time [...] ondansetron ODT disintegrating tablet 4 mg (ZOFRAN-ODT) ([facility]) 1101 (Given - Provider: Nita Rao R.N.) 4 mg, oral, Once, On Sun03/01/21 at 1058 , For 1 dose, When splitting ODT at bedside, handle with gloves and a pill splitter to prevent moisture contact. documented in this encounter Care Teams Storage Battery Tester Relationship Specialty Start Date End Date Ben Arce M.D. PCP - General Family Medicine 01/13/[address] [place] [phone] documented as of this encounter
--- OUTSIDE RECORDS SUMMARY | 2022-06-18 19:27 | XMS_ITS | Encounter Summary ---
:1990 Author Organization [facility] Address [address] [place] [address] Care Team Providers Name Role Phone Elsewhere, Pcp Primary Care Provider Unavailable Reason for Visit Reason Comments Amox Encounter Details Date Type Department Care Team Description 10/05/2020 Clinical Communication Department of Family Aguila Arias M.D. [facility] Medicine in [place] [address] [place], [place] [address] [place] [facility] [address] [place], [place] [phone] (Work) [phone] Social History Tobacco Use Types Packs/Day Years [...] do you attend nondenominational or Never 2021 catholic services? Do you [...] at Date Recorded Female 12/02/2021 5:19 PM INSIDE SALES PROFESSIONAL documented as of this encounter Miscellaneous Notes Addendum Note - Aguila Arce M.D. - 10/05/2020 4:11 PM INSIDE SALES PROFESSIONAL Addended by: AGUILA ARCE on: 10/05/2020 04:11 PM Modules accepted: Orders DE SALES PROFESSIONAL Addendum Note - Dali Bird R.M.A. - 10/05/2020 4:09 PM INSIDE SALES PROFESSIONAL Addended by: DALI BIRD on: 10/05/2020 04:09 PM Modules accepted: Orders DE SALES PROFESSIONAL Telephone Encounter - Dali Bird R.M.A. - 10/05/2020 4:03 PM INSIDE SALES PROFESSIONAL Pt's sister is calling on behalf of sister stating that she is restricted to Dr Arce and needs her amox filled. She saw the dentist today, Dr Kelsea Gamino and he prescribed Amox 500 mg. Take 2 tabs STAT and one tab TID till gone #31. DE SALES PROFESSIONAL documented in this encounter Plan of Treatment Not on filedocumented as of this encounter Visit Diagnoses Not on filedocumented in this encounter Care Teams Locksmith Helper Relationship Specialty Start Date End Date Elsewhere, Pcp PCP - General Family Medicine 01/08/18 01/12/21 documented as of this encounter
--- OUTSIDE RECORDS SUMMARY | 2022-06-18 19:27 | XMS_ITS | Encounter Summary ---
:1990 Author Organization [facility] Address [address] [place] [address] Care Team Providers Name Role Phone Elsewhere, Pcp Primary Care Provider Unavailable Reason for Referral Physical Therapy (Routine) - Denied Specialty Diagnoses / Procedures Referred By Contact Refer red To Contact Diagnoses Tendonitis Loulou Teresa APRN, [facility] Procedures PT Evaluate and treat C.N.P. [address] [place] [address] Referral ID Status Reason Start Date Expiration Date Visits Requ ested Visits Authorized [id number] Denied 06/08/2020 10/21/2020 1 0 Reason for Visit Reason Comments Post Ed Visit Follow-up Encounter Details Date Type Department Care Team Description 06/08/2020 Office Visit Department of [facility] Loulou Teresa Te ndonitis (Primary Medicine in [facility] ART THERAPIST, C.N.P. Dx) [place], [place] [address] [place] [phone] Social History Tobacco Use Types Packs/Day Years [...] do you attend samaritan or Never 2021 catholic services? Do you [...] Date Recorded Female 12/02/2021 5:19 PM HOME CARE SCHEDULER documented as of this encounter Last Filed [...] Primary documented in this encounter Care Teams Community Education Specialist Relationship Specialty Start Date End Date Elsewhere, Pcp PCP - General Family Medicine 01/08/18 01/12/21 documented as of this encounter
--- OUTSIDE RECORDS SUMMARY | 2022-06-18 19:27 | XMS_ITS | Encounter Summary ---
:1990 Author Organization [facility] Address [address] [place] [address] Care Team Providers Name Role Phone Ben Arce M.D. Primary Care Provider Encounter Details Date Type Department Care Team Description 01/21/2021 Orders Only [facility] PCP TH Teja Zuniga Jr., M.D. [address] [place] [address] [place] [phone] (Wo rk) Social History Tobacco [...] do you attend methodist or Never 2021 taoist services? Do you [...] at Date Recorded Female 12/02/2021 5:19 PM NETWORK LEAD documented as of this encounter Plan of Treatment Not on filedocumented as of this encounter Visit Diagnoses Not on filedocumented in this encounter Care Teams Materials Mgmt Tech Relationship Specialty Start Date End Date Ben Arce M.D. PCP - General Family Medicine 01/13/[address] [place] [address] documented as of this encounter
--- OUTSIDE RECORDS SUMMARY | 2022-06-18 19:27 | XMS_ITS | Encounter Summary ---
:[address] [facility] Address [address] [place] [address] Care Team Providers Name Role Phone Ben Arce M.D. Primary Care Provider Encounter Details Date Type Department Care Team Description 11/24/2021 Orders Only Department of Robert, Erika Hammer, Abnormal L aboratory Obstetrics and RESOURCE DEVELOPMENT DIRECTOR, C.N.P., Results (Samina pendleton Dx) Gynecology in [place], [place] [address] [place] [phone] Social History Tobacco Use Types Packs/Day Years [...] do you attend alevism or Never 2021 uatsdin services? Do you [...] at Date Recorded Female 12/02/2021 5:19 PM DINKEY LOCOMOTIVE ENGINEER documented as of this encounter Plan of Treatment Not on filedocumented as of this encounter Results (ABNORMAL) hCG (Human Chorionic Gonadotropin), Quantitative, (11/28/2021 4:00 PM DINKEY LOCOMOTIVE ENGINEER) P athologist Signature HCG, 94 (H) <5 IU/L 11/28/2021 NPRG Quantitative, 7:47 PM DINKEY LOCOMOTIVE ENGINEER , P Comment: Biotin has been identified by the meir toro as a potential interfering substance. ??Higher concentr ations of biotin may be found in multivitamins, hair/nail supple ments, and workout supplements. ??If the result does not [facility] clinical observations, repeat testing after patient refrains fr om the use of supplements for at least 12 hours. Specimen Anatomical Collection Method Collection Time Receive d Time (Source) Location / / Volume Laterality Blood (Blood, 11/28/2021 4:00 PM 11/28/19 22 6:56 Venous) DINKEY LOCOMOTIVE ENGINEER PM DINKEY LOCOMOTIVE ENGINEER Erika Jones APRN, C.N.P., M.S.N. LAB BLOOD ADD-ON Performing Organization Address City/State/ZIP Code Phon e Number [id number] [address] [place], [place] [address] [place] [address] [place] [address] [facility] [address] [place] documented in this encounter Visit Diagnoses Diagnosis Abnormal Laboratory Results - Primary documented in this encounter Care Teams Field Laborer Relationship Specialty Start Date End Date Ben Arce M.D. PCP - General Family Medicine 01/13/[address] [place] [address] documented as of this encounter
--- OUTSIDE RECORDS SUMMARY | 2022-06-18 19:27 | XMS_ITS | Encounter Summary ---
:1990 Author Organization [facility] Address [address] [place] [address] Care Team Providers Name Role Phone Ben Arce M.D. Primary Care Provider Reason for Visit Reason Comments Med Refill Naproxen Encounter Details Date Type Department Care Team Description 02/10/2021 Refill Department of Ben Metzger M.D. Med Refill (Naproxen) Medicine in [place] [address] [place], [place] [address] [place] [address] [place] [address] [phone] Social History Tobacco Use Types Packs/Day Years [...] do you attend cheondoism or Never 2021 methodist services? Do you [...] at Date Recorded Female 12/02/2021 5:19 PM FITNESS CENTER ATTENDANT documented as of this encounter Miscellaneous Notes Telephone Encounter - Kennedi Mckeon, R.M.A. - 02/10/2021 10:12 AM CDT Medication refill Naproxen Last filled 01/13/21 Last OV 01/13/21, 01/07/21 Future appointment None scheduled documented in this encounter Plan of Treatment Not on filedocumented as of this encounter Visit Diagnoses Diagnosis Pain Elbow Left documented in this encounter Care Teams Heat Treat Supervisor Relationship Specialty Start Date End Date Ben Arce M.D. PCP - General Family Medicine 01/13/[address] [facility] [place] [address] documented as of this encounter
--- OUTSIDE RECORDS SUMMARY | 2022-06-18 19:27 | XMS_ITS | Encounter Summary ---
:1990 Author Organization [facility] Address [address] [place] [address] Care Team Providers Name Role Phone Ben Arce M.D. Primary Care Provider Reason for Visit Reason Comments Communication New script Encounter Details Date Type Department Care Team Description 10/06/2021 Clinical Communication Department of Ben Arce Comm unication (New Family Medicine in M.DMaribell script) [place] [address] [facility] [address] [facility] [phone] [phone] Social History Tobacco Use Types Packs/Day Years [...] do you attend restoration or Never 2021 moravian services? Do you belong to any clubs [...] at Date Recorded Female 12/02/2021 5:19 PM TIME STUDY OBSERVER documented as of this encounter Miscellaneous Notes Telephone Encounter - Babita Ramachandran R.N. - 10/06/2021 3:58 PM TIME STUDY OBSERVER Portal message sent to patient that if she is on restricted plan she needs to contact her insurance for an exception. STUDY OBSERVER Telephone Encounter - Alana Perkins L.P.N. - 10/06/2021 3:02 PM TIME STUDY OBSERVER Spoke to pt and informed her that we would need to know which medication for eye drops was ordered so that Dr Arce could send it in. Pt states she has no idea what it is. Informed pt to find out which medication it is and call us back with that info. STUDY OBSERVER Telephone Encounter - Migdalia Pompa - 10/06/2021 [...] Please call patient with plan. Thank you. STUDY OBSERVER documented in this encounter Plan of Treatment Not on filedocumented as of this encounter Visit Diagnoses Not on filedocumented in this encounter Care Teams Childhood Development Teacher Relationship Specialty Start Date End Date Ben Arce M.D. PCP - General Family Medicine 01/13/[address] [place] [phone] documented as of this encounter
--- OUTSIDE RECORDS SUMMARY | 2022-06-18 19:27 | XMS_ITS | Encounter Summary ---
:1990 Author Organization [facility] Address [address] [place] [address] Care Team Providers Name Role Phone Ben Arce M.D. Primary Care Provider Reason for Visit Reason Comments Nausea OTHER Breast pain Vomiting Positive at home test X 4 Encounter Details Date Type Department Care Team Description 11/24/2021 Comprehensive Visit Department of Grant Jones ncsharyn Test (Primary Dx); Obstetrics and J, CRUSHER PLANT OPERATOR, Counseling Bi rth Control; Gynecology in [facility] C.N.P., M.S.N. Pap Smear Examination [place], [place] [address] [place] [phone] Social History Tobacco Use Types Packs/Day Years [...] do you attend tenriism or Never 2021 anglican services? Do you [...] at Date Recorded Female 12/02/2021 5:19 PM ZIPPER SETTER LOCKSTITCH documented as of this encounter Last Filed Vital Signs Vital Sign Reading Time Taken Comments Blood Pressure 166/67 11/24/2021 1:50 PM ZIPPER SETTER LOCKSTITCH Pulse 118 11/24/2021 1:49 PM ZIPPER SETTER LOCKSTITCH Temperature 37.2 ??C (99 ??F) 11/24/2021 1:49 PM ZIPPER SETTER LOCKSTITCH Respiratory Rate - - Oxygen Saturation - - Inhaled Oxygen Concentration - - Weight 71.6 kg (157 lb 12.8 oz) 11/24/2021 1:49 PM ZIPPER SETTER LOCKSTITCH Height - - Body Mass Index 29.79 11/08/2021 12:40 PM ZIPPER SETTER LOCKSTITCH documented in this encounter Progress Notes Grant [...] STD testing. Grant Jones APRN, Reji.NDany, M.S.N. ER SETTER LOCKSTITCH documented in this encounter Miscellaneous Notes Addendum Note - Grant Jones APRN, Reji.N.P., M.S.N. - 11/24/2021 1:15 PM ZIPPER SETTER LOCKSTITCH Addended by: GRANT JONES on: 11/29/2021 08:00 AM Modules accepted: Orders ER SETTER LOCKSTITCH documented in this encounter Plan of Treatment Not on filedocumented as of this encounter Procedures Procedure Name Priority Date/Time Associated Diagnosis Comme nts THINPREP W/HPV Routine 11/24/2021 4:49 PM Pap Smear Results for this CO-TEST SCREEN ZIPPER SETTER LOCKSTITCH Examination procedure are in the results section. HUMAN CHORIONIC Routine 11/24/2021 2:00 PM Test Resu lts for this GONADOTROPIN (HCG), ZIPPER SETTER LOCKSTITCH procedur e are in ROBERTA, the results section. HPV WITH GENOTYPING, Routine 11/24/2021 1:53 PM R esults for this PCR, THINPREP ZIPPER SETTER LOCKSTITCH procedure are in the results section. TEST, POCT, Routine 11/24/2021 1:14 PM Samira t Results for this U (LAB) ZIPPER SETTER LOCKSTITCH procedure are i n the results section. documented in this encounter Results ThinPrep w/HPV Co-Test Screen (11/24/2021 4:49 PM ZIPPER SETTER LOCKSTITCH) Component Value Ref Test Analysis Performed Pathologis t Range Method Time At Signature 11/28/2021 HK 3:47 PM ZIPPER SETTER LOCKSTITCH Report DEBRA Boles(ASCP) 11/28/2021 HK electronically 3:47 PM signed by ZIPPER SETTER LOCKSTITCH I verify that I have examined all relevant slides/materials for the specimen(s) and rendered or confirmed the diagnosis. Gross Description Received specimen 11/28/2021 HK Y in a ThinPrep 3:47 PM vial. ZIPPER SETTER LOCKSTITCH Pap Test Source Cervical/Endocervi 11/28/2021 HKCY lizbeth 3:47 PM ZIPPER SETTER LOCKSTITCH Interpretation Cervical/Endocervical ??(ThinPrep): 11/28/2021 HKCY 3:47 PM Satisfactory for Evaluation ZIPPER SETTER LOCKSTITCH Negative for Intraepithelial Lesion or Malignancy Shift [...] Laterality Varies 11/24/2021 4:49 PM 6:36 (Cervix/Endocerv ZIPPER SETTER LOCKSTITCH AM ZIPPER SETTER LOCKSTITCH ix) Narrative This result has an attachment that is no t available. Reji Polanco APRN.N.P., M.S.N. LAB PAP PATHDX ORD ERABLES Performing Organization Address City/State/ZIP Code Phon e Number [facility]- [address] [place] [address] [facility] [facility] [place] [address] [facility] Cytology [address] [facility] (ABNORMAL) hCG (Human Chorionic Gonadotropin), Quantitative, (11/24/2021 2:00 PM ZIPPER SETTER LOCKSTITCH) athologist Signature HCG, 6.9 (H) <5 IU/L 11/24/2021 NPRG Quantitative, 2:22 PM ZIPPER SETTER LOCKSTITCH , P Comment: Biotin has been identified by the meir toro as a potential interfering substance. ??Higher concentr ations of biotin may be found in multivitamins, hair/nail supple ments, and workout supplements. ??If the result does not [facility] clinical observations, repeat testing after patient refrains fr om the use of supplements for at least 12 hours. Specimen Anatomical Collection Method Collection Time Receive d Time (Source) Location / / Volume Laterality Blood (Blood, 11/24/2021 2:00 PM 11/24/19 2:01 Venous) ZIPPER SETTER LOCKSTITCH PM ZIPPER SETTER LOCKSTITCH Grant Jones APRN, C.N.P., M.S.N. LAB BLOOD ADD-ON Performing Organization Address City/State/ZIP Code Phon e Number [facility]- [address] [place], [place] [address] [place] [address] [place] [address] [place] [address] [place] HPV with Genotyping, PCR, ThinPrep (11/24/2021 1:53 PM ZIPPER SETTER LOCKSTITCH) athologist Signature HPV with Negative Negative 11/25/2021 MKTO Genotyping, 3:27 PM ZIPPER SETTER LOCKSTITCH ThinPrep, PCR Comment: Negative for high risk HPV by nucleic ac id amplification. ??The following high risk HPV types were not detected: 16, 18, 31, 33, 35, 39, 45, 51, 52, 56, 58, 59, 66, and 68 Specimen Anatomical Collection Method Collection Time Receive d Time (Source) Location / / Volume Laterality Varies 11/24/2021 1:53 PM 6:36 ZIPPER SETTER LOCKSTITCH AM ZIPPER SETTER LOCKSTITCH Reji Polanco APRN.N.Anna., M.S.N. LAB MICROBIOLOGY - GENERAL ORDERABLES Performing Organization Address City/[facility]/ZIP Code Phon e Number [facility]- [address] [place] [address] [place] [address] System in [place] [address] [facility] Test, POCT, Urine (lab) (11/24/2021 1:14 PM ZIPPER SETTER LOCKSTITCH) P athologist Signature Negative 11/24/2021 NPRG Test, POCT, U 1:21 PM ZIPPER SETTER LOCKSTITCH Specimen Anatomical Collection Method Collection Time Receive d Time (Source) Location / / Volume Laterality Urine (Urine, 11/24/2021 1:14 PM 11/24/19 1:14 Clean Catch) ZIPPER SETTER LOCKSTITCH PM ZIPPER SETTER LOCKSTITCH Grant Jones APRN, C.N.P., M.S.N. LAB POCT ORDERABLE S - DEVICE Performing Organization Address City/[facility]/ZIP Code Phon e Number [facility]- [address] [place] [address] [place] [address] LAB NPRG [facility] [place] [address] documented in this encounter Visit Diagnoses Diagnosis Test - Primary Counseling Control Pap Smear Examination documented in this encounter Care Teams Reel And Rewinder Operator Relationship Specialty Start Date End Date Ben Arce M.D. PCP - General Family Medicine 01/13/[address] [place] [phone] documented as of this encounter
--- OUTSIDE RECORDS SUMMARY | 2022-06-18 19:27 | XMS_ITS | Encounter Summary ---
:1990 Author Organization [facility] Address [address] [place] [address] Care Team Providers Name Role Phone Ben Arce M.D. Primary Care Provider Reason for Referral Outpatient (Routine) - Closed Specialty Diagnoses / Procedures Referred By Contact Refer red To Contact Obstetrics and Diagnoses Examination Test With Positive Result (HCC) Terrence Swenson M.D. [facility] Gynecology [address] [address] Referral ID Status Reason Start Date Expiration Date Visits Requ ested Visits Authorized [id number] Closed 12/01/2021 12/01/2022 1 1 INSULATOR HELPER Specialty Diagnoses / Procedures Referred By Contact Refer red To Contact Terrence Swenson M.D. [facility] Region [address] [place] [phone] Referral ID Status Reason Start Date Expiration Date Visits Requ ested Visits Authorized INSULATOR HELPER Encounter Details Date Type Department Care Team Description 12/01/2021 Clinical Communication Department of Terrence Swenson Obstetrics and [place] Gynecology in [address] [place], [place] [address] [place] [address] [place], [place] [phone] (Work) [phone] Social History Tobacco Use Types Packs/Day Years [...] do you attend gnosticism or Never 2021 jainism services? Do you [...] at Date Recorded Female 12/02/2021 5:19 PM CORK INSULATOR HELPER documented as of this encounter Miscellaneous [...] following references were used: Nursing Clinical Judgement INSULATOR HELPER Telephone Encounter - Anisa White - 12/01/2021 12:26 PM CST Reason for Communication: Patient calling, had a positive home test and a clinic confirmedtest. LMP unknown. Patient is looking to transfer care from [facility] Can Nursing/Provider leave a detailed message?: yes Did the patient refuse triage through Nurse line? (for symptom based concerns): Action Needed: Name of Medication (if relevant): Please send all scheduling replies to scheduling pool. INSULATOR HELPER documented in this encounter Plan of Treatment [...] US OB First Trimester (12/20/2021 10:50 AM CORK INSULATOR HELPER) Anatomical Region Laterality Modality Body, Ultrasound OB RST LOS, Ultrasound ARZ LOS N/A Ultrasound Specimen (Source) Anatomical Collection Method Collection Time Re ceived Time Location / / Volume Laterality 12/20/2021 12:31 PM CORK INSULATOR HELPER Impressions 12/20/2021 12:34 PM CORK INSULATOR HELPER Single, viable, intrauterine gestation w ith CARLOS of August 14, 2022 (not consistent with menstrual dating). Narrative 12/20/2021 12:34 PM CORK INSULATOR HELPER EXAM: US OB FIRST TRIMESTER COMPARISON: None Physician: Dr. Swenson FINDINGS: Gestational age and CARLOS by LMP or OB/EHR assignment: 7 w 3 d, CARLOS: 08/05/2022 INTRAUTERINE Pole: Normal, [place]-Rump Length: 0 .50 cm Gestational Sac: Normal [...] 3 d, CARLOS: 08/05/2022 INTRAUTERINE Pole: Normal, [place]-Rump Length: 0 .50 cm Gestational Sac: Normal [...] (HCC) documented in this encounter Care Teams Ab Initio Etl Developer Relationship Specialty Start Date End Date Ben Arce M.D. PCP - General Family Medicine 01/13/[address] [place], [place] [address] documented as of this encounter
--- OUTSIDE RECORDS SUMMARY | 2022-06-18 19:27 | XMS_ITS | Encounter Summary ---
:1990 Author Organization [facility] Address [address] [place] [address] Care Team Providers Name Role Phone Elsewhere, Pcp Primary Care Provider Unavailable Reason for Visit Reason Comments Arm Injury pt presents with left arm (e lbow area) pain after falling this morning around 0730. Pt fell outside on icy pavement. No other injuries. Pt did work all day at [employer]. Encounter Details Date Type Department Care Team Description 12/14/2020 Emergency [place] [facility] CalderonBull M, Inj ury Arm Initial Left Department M.D. (Primary Dx) [address] [place] [phone] Social History Tobacco Use Types Packs/Day Years [...] do you attend anabaptist or Never 2021 rastafari services? Do you [...] at Date Recorded Female 12/02/2021 5:19 PM FERN GATHERER documented as of this encounter Last Filed Vital Signs Vital Sign Reading Time Taken Comments Blood Pressure 149/105 12/14/2020 6:00 PM FERN GATHERER Pulse 68 12/14/2020 6:10 PM FERN GATHERER Temperature 37.1 ??C (98.8 ??F) 12/14/2020 6:00 PM FERN GATHERER Respiratory Rate 16 12/14/2020 6:00 PM FERN GATHERER Oxygen Saturation 97% 12/14/2020 6:10 PM FERN GATHERER Inhaled Oxygen Concentration - - Weight 71.8 kg (158 lb 4.6 oz) 12/14/2020 5:24 PM FERN GATHERER Height 152 cm (4' 11.84) 12/14/2020 5:24 PM FERN GATHERER Body Mass Index 31.08 12/14/2020 5:24 PM FERN GATHERER documented in this encounter Discharge Instructions AttachmentsThe following attachments cannot be sent through Care Everywhere.RICE Therapy for Routine Care of Injuries Moiv-as-Vpyi (Slovenian)documented in this encounter Medications at Time [...] injuries. Pt did work all day at [employer]. ) HISTORY OF PRESENT ILLNESS 30-year-old female [...] the fall. She went to work at [employer], where she work throughout the day, though [...] Arm Initial Left Bull Calderon M.D. 12/14/201810 GATHERER documented in this encounter Plan of Treatment Not on filedocumented as of this encounter Procedures Procedure Name Priority Date/Time Associated Comments Diagnosis DX WRIST LEFT 3+ RAD - Semiurgent 12/14/2020 5:57 Resu lts for this VIEWS (Fast; most ED PM FERN GATHERER procedure are in patients; some the results inpatients) section. DX SHOULDER LEFT RAD - Semiurgent 12/14/2020 5:54 Resu lts for this 2+ VIEWS (Fast; most ED PM FERN GATHERER procedure are in patients; some the results inpatients) section. DX ELBOW LEFT 3+ RAD - Semiurgent 12/14/2020 5:52 Resu lts for this VIEWS (Fast; most ED PM FERN GATHERER procedure are in patients; some the results inpatients) section. documented in this encounter Results DX Wrist Left 3+ Views (12/14/2020 5:57 PM FERN GATHERER) Anatomical Region Laterality Modality Upper Extremity, Wrist, Musculoskeletal RST LOS, Left Digital Radiography Musculoskeletal ARZ LOS, Muskuloskeletal FLA LOS Specimen (Source) Anatomical Collection Method Collection Time Re ceived Time Location / / Volume Laterality 12/14/2020 5:58 PM FERN GATHERER Impressions 12/14/2020 5:59 PM FERN GATHERER No acute radiographic abnormalities are demonstrated. Narrative 12/14/2020 5:59 PM FERN GATHERER EXAM: DX WRIST LEFT 3+ VIEWS COMPARISON: [...] Shoulder Left 2+ Views (12/14/2020 5:54 PM FERN GATHERER) Anatomical Region Laterality Modality Upper Extremity, Shoulder, Musculoskeletal RST LOS, Left Digital Radiography Musculoskeletal ARZ LOS, Muskuloskeletal FLA LOS Specimen (Source) Anatomical Collection Method Collection Time Re ceived Time Location / / Volume Laterality 12/14/2020 5:57 PM FERN GATHERER Impressions 12/14/2020 5:58 PM FERN GATHERER No acute radiographic abnormalities are demonstrated. Narrative 12/14/2020 5:58 PM FERN GATHERER EXAM: DX SHOULDER LEFT 2+ VIEWS COMPARISON: [...] Elbow Left 3+ Views (12/14/2020 5:52 PM FERN GATHERER) Anatomical Region Laterality Modality Upper Extremity, Elbow, Musculoskeletal RST LOS, Left Digital Radiography Musculoskeletal ARZ LOS, Muskuloskeletal FLA LOS Specimen (Source) Anatomical Collection Method Collection Time Re ceived Time Location / / Volume Laterality 12/14/2020 5:56 PM FERN GATHERER Impressions 12/14/2020 5:57 PM FERN GATHERER No acute radiographic abnormalities are demonstrated. Narrative 12/14/2020 5:57 PM FERN GATHERER EXAM: DX ELBOW LEFT 3+ VIEWS COMPARISON: [...] tablet 1,000 mg Given 12/14/2020 5:28 PM FERN GATHERER 1,000 mg (TYLENOL) 1,000 mg, oral, Once, On Sun12/14/20 at 1721, For 1 dose documented in this encounter Active and Recently Administered Medications Times are shown in FERN GATHERER. Scheduled Medication Order 12/12/2020 12/13/2020 12/14/2020 acetaminophen tablet 1,000 mg (TYLENOL) (COMPLETED) 1728 (Given - Provider: Nita Maira, R.N.) 1,000 mg, oral, Once, On Sun12/14/20 at 1721, For 1 dose documented in this encounter Care Teams Roll Edge Machine Operator Relationship Specialty Start Date End Date Elsewhere, Pcp PCP - General Family Medicine 01/08/18 01/12/21 documented as of this encounter
--- OUTSIDE RECORDS SUMMARY | 2022-06-18 19:27 | XMS_ITS | Encounter Summary ---
:1990 Author Organization [facility] Address [address] [place] [address] Care Team Providers Name Role Phone Ben Arce M.D. Primary Care Provider Reason for Visit Reason Comments Other swollen and sore throat and fluid in ears right more than the left. was just here on Sunday and saw Donya for her arm Encounter Details Date Type Department Care Team Description 01/13/2021 Office Visit Department of Ben Metzger M.D. Sore Throat (Primary Medicine in [place] [address] Dx) [place], [place] [address] [place] [address] [place], [place] [phone] (Work) [phone] Social History Tobacco Use Types Packs/Day Years [...] or relatives? How often do you attend evangelical or Never 2021 muslim services? Do you belong to any clubs or No 11/20/2021 organizations such as evangelical groups, unions, fraternal or athletic groups, or [...] at Date Recorded Female 12/02/2021 5:19 PM DEPUTY BRAND INSPECTOR documented as of this encounter Last [...] Body Mass Index 31.39 12/14/2020 5:24 PM DEPUTY BRAND INSPECTOR documented in this encounter Progress Ben Espinal [...] Organization Address City/State/ZIP Code Phon e Number [facility]- [address] [place] [address] [place] [address] System [address] documented in this encounter Visit Diagnoses Diagnosis Sore Throat - Primary documented in this encounter Care Teams Anodizing Line Operator Relationship Specialty Start Date End Date Ben Arce M.D. PCP - General Family Medicine 01/13/[address] [place] [address] documented as of this encounter
--- OUTSIDE RECORDS SUMMARY | 2022-06-18 19:27 | XMS_ITS | Encounter Summary ---
:1990 Author Organization [facility] Address [address] [place] [address] Care Team Providers Name Role Phone Ben Arce M.D. Primary Care Provider Encounter Details Date Type Department Care Team Description 05/18/2021 Hospital Encounter Department of Alexander Rendon, Pain Hand Right Radiology, [facility], in [place] [address] [place], [place] [address] [place] [address] [place], [place] [phone] (Work) [phone] Social History Tobacco Use Types Packs/Day Years [...] or relatives? How often do you attend mandaen or Never 2021 amish services? Do you belong to any clubs or No 11/20/2021 organizations such as mandaen groups, unions, fraternal or athletic groups, or [...] at Date Recorded Female 12/02/2021 5:19 PM TEMPLATE CUTTER documented as of this encounter Medications at [...] Right documented in this encounter Care Teams Hydrometeorology Teacher Relationship Specialty Start Date End Date Ben Arce M.D. PCP - General Family Medicine 01/13/[address] [place] [address] documented as of this encounter
--- OUTSIDE RECORDS SUMMARY | 2022-06-18 19:27 | XMS_ITS | Encounter Summary ---
:1990 Author Organization [facility] Address [address] [place] [address] Care Team Providers Name Role Phone Elsewhere, Pcp Primary Care Provider Unavailable Reason for Visit Reason Comments Sinus Symptoms ongoing Encounter Details Date Type Department Care Team Description 07/02/2020 Office Visit Urgent Care, [facility], Sin usitis Acute [place], in [place], FATOU, C.N.P., (Samina pendleton Dx) [place] D.N.P. [address] [place] [address] [phone] Social History Tobacco Use Types Packs/Day Years [...] do you attend holiness or Never 2021 anabaptism services? Do you [...] at Date Recorded Female 12/02/2021 5:19 PM LASTING FLOORWORKER documented as of this encounter Last Filed [...] bacteria. Still, most people seen in the [facility] for upper respiratory infectionor sinusitis symptoms are [...] and replace them as recommended by the chief resource officer. Note: Having your humidity too high (more [...] help open sinuses and allow easier breathing. Rxhb-qcv-lvcbwhj treatments* In addition to the previous suggestions, you may get relief for nasal and sinus obstruction or discomfort by taking non-prescription, xkti-wai-glvgisl (OTC) medications. Many OTC medications combine a [...] with your health care provider. ? 2008 [employer] ([employer]). All rights reserved. [id number] documented in this encounter Progress Notes Esther Andrea APRN, C.NAndi., D.N.P. - 07/02/2020 11:15 AM CDT SUBJECTIVE CHIEF COMPLAINT / REASON FOR VISIT Sinus Symptoms (ongoing). HISTORY OF PRESENT ILLNESS uLlu Mata is a 30 y.o. female who [...] has been using Flonase nasal spray and lyxa-mpv-oizhbho decongestant and Tylenol or ibuprofen for symptoms. [...] a humidifier in the room. May use gsfu-ett-hyyrvaz Flonase to help with congestion. Drink warm [...] Primary documented in this encounter Care Teams Country Manager Relationship Specialty Start Date End Date Elsewhere, Pcp PCP - General Family Medicine 01/08/18 01/12/21 documented as of this encounter
--- OUTSIDE RECORDS SUMMARY | 2022-06-18 19:28 | XMS_ITS | Encounter Summary ---
:1990 Author Organization [facility] Address [address] [place] [address] Care Team Providers Name Role Phone Elsewhere, Pcp Primary Care Provider Unavailable Reason for Referral Outpatient (Routine) - Closed Specialty Diagnoses / Procedures Referred By Contact Refer red To Contact Neurology Diagnoses Contusion Leg Initial Left Numbness Ben Arce M.D. [facility] Region [address] [place] [address] Referral ID Status Reason Start Date Expiration Date Visits V isits Requested Authorized [id number] Closed Specialty 08/11/2019 08/10/2020 1 1 Services Required Reason for Visit Reason Comments Follow-up ED 08/01 [facility] Outpatient (Routine) - Closed Specialty Diagnoses / Procedures Referred By Contact Refer red To Contact Emergency Medicine Diagnoses Pain Neck Strain Neck Initial Contusion Leg Initial Left Derrek Leon M.D. [facility] Region [facility] [place] [address] Referral ID Status Reason Start Date Expiration Date Visits Requ ested Visits Authorized [id number] Closed 08/01/2019 07/31/2020 1 1 Encounter Details Date Type Department Care Team Description 08/11/2019 Office Visit Department of Ben Metzger M.D. Pain Neck (Primary Dx); Medicine in [facility] [address] Strain Neck Initial; [place], [place] Contusion Leg Initial Left; [address] [place] [address] Numbness [place], [place] [phone] (Work) [phone] Social History Tobacco Use Types Packs/Day Years [...] do you attend samaritan or Never 2021 church services? Do you [...] at Date Recorded Female 12/02/2021 5:19 PM HEAD BELLHOP CAPTAIN documented as of this encounter Last Filed [...] Numbness documented in this encounter Care Teams Surgical Scheduler Relationship Specialty Start Date End Date Elsewhere, Pcp PCP - General Family Medicine 01/08/18 01/12/21 documented as of this encounter
--- OUTSIDE RECORDS SUMMARY | 2022-06-18 19:28 | XMS_ITS | Encounter Summary ---
:1990 Author Organization [facility] Address [address] [place] [address] Care Team Providers Name Role Phone Elsewhere, Pcp Primary Care Provider Unavailable Reason for Visit Reason Comments Sinus Symptoms ST, Cipriano ear pressure, conges tion; 3.5 wks ago Encounter Details Date Type Department Care Team Description 06/27/2019 Office Visit Urgent Care, [facility] [place], [place] [address], [address] [place] [address] [phone] (Wo rk) Social History Tobacco Use Types [...] do you attend jewish or Never 2021 denominational services? Do you [...] at Date Recorded Female 12/02/2021 5:19 PM NUISANCE ANIMAL DAMAGE CONTROL AGENT documented as of this encounter Last Filed [...] Primary documented in this encounter Care Teams Cold Type Composing Machine Operator Relationship Specialty Start Date End Date Elsewhere, Pcp PCP - General Family Medicine 01/08/18 01/12/21 documented as of this encounter
--- OUTSIDE RECORDS SUMMARY | 2022-06-18 19:28 | XMS_ITS | Encounter Summary ---
:1990 Author Organization [facility] Address [address] [place] [address] Care Team Providers Name Role Phone Elsewhere, Pcp Primary Care Provider Unavailable Reason for Visit Reason Comments Wrist Pain 30 y/o f presents with R wri st and hand pain since . Pt says is sharp and radiates up her ar m, no injury, has been taking advil with some relief. Encounter Details Date Type Department Care Team Description 05/30/2020 Emergency [place] Emergency Sigrid Forbes endofrantz Forearm Department D, M.D. (Primary Dx) [address] [facility] [place] [phone] (Wo rk) Social History Tobacco Use Types [...] or relatives? How often do you attend uatsdin or Never 2021 rastafari services? Do you belong to any clubs or No 11/20/2021 organizations such as uatsdin groups, unions, fraternal or athletic groups, or [...] at Date Recorded Female 12/02/2021 5:19 PM TIRE MAINTENANCE TECHNICIAN documented as of this encounter Last [...] Body Mass Index 30.81 12/26/2019 9:26 AM TIRE MAINTENANCE TECHNICIAN documented in this encounter Discharge Instructions [...] clinic by calling the appointment center at [phone]. Thank you for choosing [facility] for your care. It was a [...] Forbes M.D. - 05/30/2020 12:11 PM CDT [facility] EMERGENCY DEPARTMENT ENCOUNTER Patient Name: [...] Primary documented in this encounter Care Teams Quarter Section Ironer Relationship Specialty Start Date End Date Elsewhere, Pcp PCP - General Family Medicine 01/08/18 01/12/21 documented as of this encounter
--- OUTSIDE RECORDS SUMMARY | 2022-06-18 19:28 | XMS_ITS | Encounter Summary ---
:1990 Author Organization [facility] Address [address] [place] [address] Care Team Providers Name Role Phone Elsewhere, Pcp Primary Care Provider Unavailable Reason for Referral Outpatient (Routine) - Closed Specialty Diagnoses / Procedures Referred By Contact Refer red To Contact Emergency Medicine Diagnoses Pain Neck Strain Neck Initial Contusion Leg Initial Left Derrek Leon M.D. [facility] Region [address] [place] [address] Referral ID Status Reason Start Date Expiration Date Visits Requ ested Visits Authorized [id number] Closed 08/01/2019 07/31/2020 1 1 Reason for Visit Reason Comments Neck Pain Pt presents from Urgent care for evaluation of neck pain and tingling of left leg. Encounter Details Date Type Department Care Team Description 08/01/2019 Emergency [place] Emergency Derrek Leon Pa in Neck (Primary Dx); Department M.DMaribell Strain Neck Initial; [address] [facility] [address] [facility] Contusion Leg Initial Left; [place], [place] Paresthesias Feet [phone] Social History Tobacco Use Types Packs/Day [...] do you attend pentecostalism or Never 2021 confucianism services? Do you [...] at Date Recorded Female 12/02/2021 5:19 PM YACHT BUILDER documented as of this encounter Last Filed [...] be sent through Care Everywhere. Muscle Strain (Ethiopian)Cervical Sprain (Ethiopian)Contusion (Ethiopian)documented in this encounter Medications at Time of [...] Feet documented in this encounter Care Teams Numerical Control Programmer Relationship Specialty Start Date End Date Elsewhere, Pcp PCP - General Family Medicine 01/08/18 01/12/21 documented as of this encounter
--- OUTSIDE RECORDS SUMMARY | 2022-06-18 19:28 | XMS_ITS | Encounter Summary ---
:1990 Author Organization [facility] Address [address] [place] [address] Care Team Providers Name Role Phone Elsewhere, Pcp Primary Care Provider Unavailable Reason for Referral MRI/CAT/PET Scan (Routine) - Closed Specialty Diagnoses / Procedures Referred By Contact Refer red To Contact Radiology Diagnoses Pain Cervical Esther Andrea APRN, [facility] Region Procedures CT Thoracic Spine without IV Contrast C.N.P., D.N.P. [address] [place] [address] Referral ID Status Reason Start Date Expiration Date Visits Requ ested Visits Authorized [id number] Closed 08/01/2019 07/31/2020 1 1 Reason for Visit MRI/CAT/PET Scan (Routine) - Closed Specialty Diagnoses / Procedures Referred By Contact Refer red To Contact Radiology Diagnoses Pain Cervical Emre, FATOU Santana, [facility] Region Procedures CT Thoracic Spine without IV Contrast C.N.P., D.N.P. [address] [place] [address] Referral ID Status Reason Start Date Expiration Date Visits Requ ested Visits Authorized [id number] Closed 08/01/2019 07/31/2020 1 1 Encounter Details Date Type Department Care Team Description 08/01/2019 Hospital Encounter Department of Radiology Eliazar Andrea, Pain Cervical [place] APRN C.N.P., [address] [facility] D.N[facility] [place], [place] [address] [place] [address] [place], [place] [phone] Social History Tobacco Use Types Packs/Day [...] do you attend mandaen or Never 2021 faith services? Do you [...] Date Recorded Female 12/02/2021 5:19 PM TOLL LINE REPAIRER documented as of this encounter Medications at [...] Cervical documented in this encounter Care Teams Grain Manager Relationship Specialty Start Date End Date Elsewhere, Pcp PCP - General Family Medicine 01/08/18 01/12/21 documented as of this encounter
--- OUTSIDE RECORDS SUMMARY | 2022-06-18 19:28 | XMS_ITS | Encounter Summary ---
:1990 Author Organization [facility] Address [address] [place] [address] Care Team Providers Name Role Phone Elsewhere, Pcp Primary Care Provider Unavailable Reason for Visit Reason Comments Sinus Symptoms 30 + days ago Encounter Details Date Type Department Care Team Description 12/12/2018 Office Visit Express [facility] Mario Savage, Inf ection [place], [place] P.A.-C. Respiratory (Primary [address], Dx) [facility] C [address] [place], [place] [phone] (Wo rk) Social History Tobacco Use Types [...] do you attend gnosticist or Never 2021 hinduism services? Do you [...] Date Recorded Female 12/02/2021 5:19 PM LEATHER BELT LOOP CUTTER documented as of this encounter Last Filed Vital Signs Vital Sign Reading Time Taken Comments Blood Pressure 136/92 12/12/2018 7:15 PM LEATHER BELT LOOP CUTTER Pulse 86 12/12/2018 7:15 PM LEATHER BELT LOOP CUTTER Temperature 36.9 ??C (98.4 ??F) 12/12/2018 7:15 PM LEATHER BELT LOOP CUTTER Respiratory Rate - - Oxygen Saturation 96% 12/12/2018 7:15 PM LEATHER BELT LOOP CUTTER Inhaled Oxygen Concentration - - Weight 72 kg (158 lb 11.7 oz) 12/12/2018 7:15 PM LEATHER BELT LOOP CUTTER Height - - Body Mass Index 31 10/31/2018 6:04 PM LEATHER BELT LOOP CUTTER documented in this encounter Patient Instructions Patient [...] urgent care if worsening. Mario Savage P.A.-C. HER BELT LOOP CUTTER documented in this encounter Progress Notes Mario [...] urgent care if worsening. Mario Savage P.A.-C. HER BELT LOOP CUTTER documented in this encounter Plan of Treatment Not on filedocumented as of this encounter Visit Diagnoses Diagnosis Infection Upper Respiratory - Primary documented in this encounter Care Teams Mental Retardation Aide Relationship Specialty Start Date End Date Elsewhere, Pcp PCP - General Family Medicine 01/08/18 01/12/21 documented as of this encounter
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
--- OUTSIDE RECORDS SUMMARY | 2022-06-18 19:28 | XMS_ITS | Encounter Summary ---
:1990 Author Organization [facility] Address [address] [place] [address] Care Team Providers Name Role Phone Elsewhere, Pcp Primary Care Provider Unavailable Reason for Visit Reason Comments Facial Pain Pt presents for eval of sinu s pain, congestion, throat pain and claire ear pain. sick for 3 1/2 weeks . No known fever. Using OTC sudafed and afrin without relief. Encounter Details Date Type Department Care Team Description 09/09/2019 Emergency [place] Emergency Sigrid Forbes (Primary Dx); Department D, M.D. Infection Upper Respiratory Viral [address] [place] [facility] [place] [address] [phone] (Wo rk) Social History Tobacco Use Types [...] do you attend tenriism or Never 2021 faith services? Do you [...] at Date Recorded Female 12/02/2021 5:19 PM SWITCHBOARD MECHANIC documented as of this encounter Last Filed Vital Signs Vital Sign Reading Time Taken Comments Blood Pressure 135/101 09/09/2019 9:30 AM SWITCHBOARD MECHANIC Pulse 75 09/09/2019 9:30 AM SWITCHBOARD MECHANIC Temperature 36 ??C (96.8 ??F) 09/09/2019 9:30 AM SWITCHBOARD MECHANIC Respiratory Rate 18 09/09/2019 9:30 AM SWITCHBOARD MECHANIC Oxygen Saturation 96% 09/09/2019 9:30 AM SWITCHBOARD MECHANIC Inhaled Oxygen Concentration - - Weight 72.6 kg (160 lb) 09/09/2019 9:39 AM SWITCHBOARD MECHANIC Height 152.4 cm (5') 09/09/2019 9:39 AM SWITCHBOARD MECHANIC Body Mass Index 31.25 09/09/2019 9:39 AM SWITCHBOARD MECHANIC documented in this encounter Discharge Instructions Discharge InstructionsTomSigrid remy M.D. - 09/09/2019 9:41 AM SWITCHBOARD MECHANIC Return to the Emergency Department if you [...] clinic by calling the appointment center at [phone]. Thank you for choosing [facility] for your care. It was a pleasure taking care of you today in our Emergency Department. CHBOARD MECHANIC AttachmentsThe following attachments cannot be sent through Care Everywhere. Sinus Rinse Hvqk-fq-Wvgp (Pashto)Sinusitis Adult Leud-tu-Dyrt (Pashto) documented in this encounter Medications at Time [...] Forbes M.D. 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 09/09/19946 CHBOARD MECHANIC documented in this encounter Plan of Treatment Not on filedocumented as of this encounter Visit Diagnoses Diagnosis Sinusitis - Primary Infection Upper Respiratory Viral documented in this encounter Care Teams Waterworks Chief Engineer Relationship Specialty Start Date End Date Elsewhere, Pcp PCP - General Family Medicine 01/08/18 01/12/21 documented as of this encounter
--- OUTSIDE RECORDS SUMMARY | 2022-06-18 19:28 | XMS_ITS | Encounter Summary ---
:1990 Author Organization [facility] Address [address] [place] [address] Care Team Providers Name Role Phone Elsewhere, Pcp Primary Care Provider Unavailable Reason for Visit Reason Comments Sore Throat SX: in ER Sunday with josiane st inflammation; st started Encounter Details Date Type Department Care Team Description 07/26/2019 [facility], [facility]C. (Primary Dx) [place], [place] [address], [address] [place] [address] [phone] (Wo rk) Social History Tobacco Use Types [...] do you attend shinto or Never 2021 caodaism services? Do you [...] at Date Recorded Female 12/02/2021 5:19 PM AREA DIRECTOR OF HOME HEALTH SALES documented as of this encounter Last Filed [...] Organization Address City/State/ZIP Code Phon e Number [place] [address] [place] [address] [facility], PCR, Point [...] Organization Address City/State/ZIP Code Phon e Number [place] [address] [place] [address] [facility] documented in this encounter Visit Diagnoses Diagnosis Pharyngitis Acute - Primary documented in this encounter Care Teams Instant Potato Processor Relationship Specialty Start Date End Date Elsewhere, Pcp PCP - General Family Medicine 01/08/18 01/12/21 documented as of this encounter
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
--- OUTSIDE RECORDS SUMMARY | 2022-06-18 19:28 | XMS_ITS | Encounter Summary ---
:1990 Author Organization [facility] Address [address] [place] [address] Care Team Providers Name Role Phone Elsewhere, Pcp Primary Care Provider Unavailable Reason for Visit Reason Comments Follow-up Outpatient (Routine) - Closed Specialty Diagnoses / Procedures Referred By Contact Refer red To Contact Family Medicine Ben Arce M.D. [facility] Region [address] [place] [address] Referral ID Status Reason Start Date Expiration Date Visits Requ ested Visits Authorized [id number] Closed 01/28/2019 01/28/2020 1 1 Encounter Details Date Type Department Care Team Description 02/11/2019 Office Visit Department of Ben Metzger M.D. Thrombosis Superficial Medicine in [facility] [address] Vein Lower Extremity [place], [place] Left (Primary Dx) [address] [place] [place] [address] [place], [place] [phone] (Work) [phone] Social History Tobacco Use Types Packs/Day Years [...] you attend oriental orthodox or Never 2021 jehovah's witness services? Do [...] at Date Recorded Female 12/02/2021 5:19 PM LOGISTICS CENTER MANAGER documented as of this encounter Last [...] Primary documented in this encounter Care Teams Burner Tender Relationship Specialty Start Date End Date Elsewhere, Pcp PCP - General Family Medicine 01/08/18 01/12/21 documented as of this encounter
--- OUTSIDE RECORDS SUMMARY | 2022-06-18 19:28 | XMS_ITS | Encounter Summary ---
:1990 Author Organization [facility] Address [address] [place] [address] Care Team Providers Name Role Phone Elsewhere, Pcp Primary Care Provider Unavailable Reason for Visit Reason Comments Sinusitis Encounter Details Date Type Department Care Team Description 01/10/2020 Office Visit Urgent Care, [facility], Sin usitis Acute [place], in [place], FATOU, C.N.P., (Samina pendleton Dx) [place] D.N.P. [address] [place] [address] [phone] Social History Tobacco Use Types Packs/Day Years [...] you attend oriental orthodox or Never 2021 buddhism services? Do you [...] at Date Recorded Female 12/02/2021 5:19 PM SOCIOLOGY INSTRUCTOR documented as of this encounter Last [...] Body Mass Index 30.4 12/26/2019 9:26 AM SOCIOLOGY INSTRUCTOR documented in this encounter Patient Instructions Patient [...] bacteria. Still, most people seen in the [facility] for upper respiratory infectionor sinusitis symptoms [...] and replace them as recommended by the metal organ pipe maker. Note: Having your humidity too high (more [...] help open sinuses and allow easier breathing. Eiln-oup-bkspqns treatments* In addition to the previous suggestions, you may get relief for nasal and sinus obstruction or discomfort by taking non-prescription, uajj-dnm-ssrmcmf (OTC) medications. Many OTC medications combine a [...] [facility] ([facility]). All rights reserved. [id number] documented in this encounter Progress Notes Esther [...] Primary documented in this encounter Care Teams Nipple Threader Relationship Specialty Start Date End Date Elsewhere, Pcp PCP - General Family Medicine 01/08/18 01/12/21 documented as of this encounter
--- OUTSIDE RECORDS SUMMARY | 2022-06-18 19:28 | XMS_ITS | Encounter Summary ---
:1990 Author Organization [facility] Address [address] [place] [address] Care Team Providers Name Role Phone Elsewhere, Pcp Primary Care Provider Unavailable Reason for Referral Outpatient (Routine) - Canceled Specialty Diagnoses / Procedures Referred By Contact Refer red To Contact Diagnoses Numbness Ben Arce M.D. External, Referring [address] [place] [address] Referral ID Status Reason Start Date Expiration Date Visits V isits Requested Authorized [id number] Canceled No 08/26/2019 08/25/2020 1 1 access/unsa tisfactory access IAL MAKEUP FX ARTIST INSTRUCTOR Reason for Visit Reason Onset Date Comments Communication 08/26/2019 Encounter Details Date Type Department Care Team Description 08/26/2019 Clinical Communication Department of Ben Metzger , Communication Medicine [place] [address] [place] [phone] Social History Tobacco Use Types Packs/Day Years [...] do you attend jewish or Never 2021 rastafari services? Do you belong to any clubs or No 11/20/2021 organizations such as jewish groups, unions, fraSmartesting or athletic groups, or school groups? How [...] ARTIST INSTRUCTOR documented as of this encounter Miscellaneous Notes Telephone Encounter - Alexandria Whittington - 08/27/2019 9:52 AM CST I will work on this. IAL MAKEUP FX ARTIST INSTRUCTOR Telephone Encounter - Sridhar Espinal - 08/27/2019 8:24 AM CST [place], can you work on this please? Thank you!! IAL MAKEUP FX ARTIST INSTRUCTOR Telephone Encounter - Ben Arce M.D. - 08/26/2019 3:36 PM CST External referral order placed. Please help her to find nearby neurology. None in [place], she has travel to [place] or [facility]. Thanks. IAL MAKEUP FX ARTIST INSTRUCTOR Telephone Encounter - Nadya Koehler, RMaribellN. - 08/26/2019 12:19 PM SPECIAL MAKEUP FX ARTIST INSTRUCTOR Can an outside referral be entered for neurology for sooner appointment? Thank you. IAL MAKEUP FX ARTIST INSTRUCTOR Telephone Encounter - Rylie Juárez - 08/26/2019 12:[address] Daiana Booth does not have an opening in [place] until December and [place] cannot [facility]. Can a referral be placed for a neurologist that is closer? IAL MAKEUP FX ARTIST INSTRUCTOR documented in this encounter Plan of Treatment Not on filedocumented as of this encounter Visit Diagnoses Diagnosis Numbness - Primary documented in this encounter Care Teams A P Manager Relationship Specialty Start Date End Date Elsewhere, Pcp PCP - General Family Medicine 01/08/18 01/12/21 documented as of this encounter
--- OUTSIDE RECORDS SUMMARY | 2022-06-18 19:28 | XMS_ITS | Encounter Summary ---
:1990 Author Organization [facility] Address [address] [place] [address] Care Team Providers Name Role Phone Elsewhere, [...] Type Department Care Team Description 07/29/2019 Emergency [place] Emergency Sigrid Forbes ontusion Left Lower Department D, MMaribellDMaribell Leg Initial (Primary [address] Dx) [place] [phone] (Wo rk) Social History Tobacco Use Types [...] do you attend yarsani or Never 2021 shinto services? Do you belong to any clubs or No 11/20/2021 organizations such as yarsani groups, unions, fraKarmasphere or athletic groups, or school groups? How [...] at Date Recorded Female 12/02/2021 5:19 PM SCRIPT ARTIST documented as of this encounter Last Filed [...] clinic by calling the appointment center at [phone]. Thank you for choosing [facility] for your care. It was a pleasure taking care of you today in our Emergency Department. AttachmentsThe following attachments cannot be sent through Care Everywhere. Contusion Dkyp-lp-Vmgd (Telugu)documented in this encounter Medications at Time of Discharge Medication Sig Dispensed Refills Start Date End Date acetaminophen (TYLENOL Take by mouth as 0 08/11/2019 ORAL) needed. etonogestreL (NEXPLANON) 1 each by implant 0 12/2112/20/2021 68 mg subdermal implant route continuously. documented as of this encounter ED Notes Sigrid Forbes M.D. - 07/29/2019 4:50 PM CDT [facility] EMERGENCY DEPARTMENT ENCOUNTER Patient Name: [...] of the incident with the reassuring ROS [facility] neuro system, I do not feel that [...] NPRG Nitrogen), P mg/dL 6:50 PM CDT Creatinine 0.69 0.59 - 07/29/2019 [facility] 1.04 mg/dL 6:50 PM CDT eGFR-Black/Afric >90 >=60 07/29/2019 NPRG an Slovenian mL/min/BSA 6:50 PM CDT Comment: ----ADDITIONAL INFORMATION---- [...] Organization Address City/State/ZIP Code Phon e Number [facility]- [address] [place] [address] [address] [place] [address] [place] [address] [address] [facility] (ABNORMAL) CBC without Differential (07/29/2019 6:21 PM CDT) [facility] Method Time Signature Hemoglobin 13.2 11.6 [...] Organization Address City/State/ZIP Code Phon e Number [facility]- [address] [place], [place] [address] [facility] [address] [facility] [place] [address] [facility] [address] DX Ankle [...] Sigrid Forbes M.D. IMG DIAGNOSTIC IMAGING PROCE [facility] CT Lumbar Spine by Reconstruction (07/29/2019 5:43 [...] study of the lumbosacral spi ne. Sigrid Forbes M.D. IMG CT PROCEDURES DX Chest AP or PA [...] clear. IMPRESSION: Normal chest Sigrid Forbes M.D. IMCt DIAGNOSTIC IMAGING PROCE [place] CT Abdomen Pelvis [...] 3.5 cm cyst of the LEFT ovary. Authorizing Provider Result Espinoza TRUONG CT PROCEDURES DX Tibia Fibula Left 2 [...] LEFT tibia and fibula Sigrid Forbes M.D. [facility] DIAGNOSTIC IMAGING PROCE DURES DX Femur Left [...] abnormality is seen. IMPRESSION: Negative LEFT femur. Sigrid TRUONG DIAGNOSTIC IMAGING PROCE [place] documented in this [...] (OMNIPAQUE) (COMPLETED) 1720 (Given - Provider: Gurdeep Persaud(R)(CT) - Comment: [id number]) 100 mL, intravenous, Once in imaging, co [...] 1651 documented in this encounter Care Teams Career Services Coordinator Relationship Specialty Start Date End Date Elsewhere, Pcp PCP - General Family Medicine 01/08/18 01/12/21 documented as of this encounter
--- OUTSIDE RECORDS SUMMARY | 2022-06-18 19:28 | XMS_ITS | Encounter Summary ---
:1990 Author Organization [facility] Address [address] [place] [address] Care Team Providers Name Role Phone Elsewhere, Pcp Primary Care Provider Unavailable Reason for Visit Reason Comments Nasal Congestion pt presents concerned for po ssible sinus infection. c/o of facial pain, congestion, ear pain a nd throat pain. symptoms for approx one month. denies fevers. has be en taking mucinex Encounter Details Date Type Department Care Team Description 03/28/2019 Emergency [place] Emergency Valerie Malone, Infec kori Upper Department M.DMaribell Respiratory (Primary [address] Dx) [place] [phone] [phone] Social History Tobacco Use Types Packs/Day Years [...] do you attend congregational or Never 2021 religion services? Do you belong to any clubs or No 11/20/2021 organizations such as congregational groups, unions, fraternal or athletic groups, or [...] Date Recorded Female 12/02/2021 5:19 PM SUPERVISOR OPENING AND PICKING documented as of this encounter Last Filed [...] Primary documented in this encounter Care Teams Marketing Assistant Relationship Specialty Start Date End Date Elsewhere, Pcp PCP - General Family Medicine 01/08/18 01/12/21 documented as of this encounter
--- OUTSIDE RECORDS SUMMARY | 2022-06-18 19:28 | XMS_ITS | Encounter Summary ---
:1990 Author Organization [facility] Address [address] [place] [address] Care Team Providers Name Role Phone Elsewhere, Pcp Primary Care Provider Unavailable Reason for Referral Outpatient (Routine) - Closed Specialty Diagnoses / Procedures Referred By Contact Refer red To Contact Family Medicine Ben Arce M.D. [facility] Region [address] [place] [address] Referral ID Status Reason Start Date Expiration Date Visits Requ ested Visits Authorized [id number] Closed 01/28/2019 01/28/2020 1 1 Reason for Visit Reason Comments Follow-up Sprain knee Encounter Details Date Type Department Care Team Description 01/28/2019 Comprehensive Visit Department of Ben Metzger, Pain Knee Left (Primary Dx); [facility]; [place], [place] [address] Thrombosis Superficial Vein Lower Extremity Left [address] [place] [phone] Social History Tobacco Use Types Packs/Day Years [...] do you attend anabaptist or Never 2021 congregation services? Do you belong to any clubs or No 11/20/2021 organizations such as anabaptist groups, unions, fraFaction Skis or athletic groups, or school groups? How [...] at Date Recorded Female 12/02/2021 5:19 PM HOUSING COORDINATOR documented as of this encounter Last [...] Name Type Priority Associated Diagnoses Order S [facility] Medicine Outpatient Referral Routine Expec taurus: office [...] Leg documented in this encounter Care Teams Charging Crane Operator Relationship Specialty Start Date End Date Elsewhere, Pcp PCP - General Family Medicine 01/08/18 01/12/21 documented as of this encounter
--- OUTSIDE RECORDS SUMMARY | 2022-06-18 19:28 | XMS_ITS | Encounter Summary ---
:1990 Author Organization [facility] Address [address] [place] [address] Care Team Providers Name Role Phone Elsewhere, Pcp Primary Care Provider Unavailable Encounter Details Date Type Department Care Team Description 01/28/2019 Hospital Encounter Department of Radiology, Ben Arias M.D. [place] [address] [address] [place], [place] [facility] [address] [place] [address] [phone] Social History Tobacco Use Types Packs/Day Years [...] do you attend sikh or Never 2021 protestant services? Do you [...] at Date Recorded Female 12/02/2021 5:19 PM MEDICAL STAFF MANAGER documented as of this encounter Medications [...] on filedocumented in this encounter Care Teams Fixture Fabricator Repairer Relationship Specialty Start Date End Date Elsewhere, Pcp PCP - General Family Medicine 01/08/18 3 documented as of this encounter
--- OUTSIDE RECORDS SUMMARY | 2022-06-18 19:28 | XMS_ITS | Encounter Summary ---
:1990 Author Organization [facility] Address [address] [place] [address] Care Team Providers Name Role Phone Elsewhere, Pcp Primary Care Provider Unavailable Reason for Visit Reason Comments Sore Throat pt with 2 1/2 week history o f sinus congestion now presents with sore throat. Throat pain started about 4 days ago, and is getting worse every day. Encounter Details Date Type Department Care Team Description 09/22/2018 Emergency [place] Emergency Marissa Mccormack, Catie lawsonnicole Acute Department D.O. (Primary Dx) [address] [place] [phone] Social History Tobacco Use Types Packs/Day Years [...] at Date Recorded Female 12/02/2021 5:19 PM LEAD FRONT END DEVELOPER documented as of this encounter Last Filed Vital Signs Vital Sign Reading Time Taken Comments Blood Pressure 128/88 09/22/2018 9:00 AM LEAD FRONT END DEVELOPER Pulse 88 09/22/2018 9:00 AM LEAD FRONT END DEVELOPER Temperature 37.5 ??C (99.5 ??F) 09/22/2018 9:00 AM LEAD FRONT END DEVELOPER Respiratory Rate 16 09/22/2018 9:00 AM LEAD FRONT END DEVELOPER Oxygen Saturation 99% 09/22/2018 9:00 AM LEAD FRONT END DEVELOPER Inhaled Oxygen Concentration - - Weight 71.9 kg (158 lb 8.2 oz) 09/22/2018 8:10 AM LEAD FRONT END DEVELOPER Height 157 cm (5' 1.81) 09/22/2018 8:10 AM LEAD FRONT END DEVELOPER Body Mass Index 29.17 09/22/2018 8:10 AM LEAD FRONT END DEVELOPER documented in this encounter Discharge Instructions Discharge InstructionsBuMarissa lopez D.O. - 09/22/2018 8:59 AM CST Take the steroids daily, and take ibuprofen and/or tylenol as needed for pain. You should return to the ED for dehydration, if you are more swollen, have difficulty breathing or cannot swallow. FRONT END DEVELOPER AttachmentsThe following attachments cannot be sent through Care Everywhere.Sore Throat (Lithuanian)documented in this encounter Medications at Time of [...] Pharyngitis Acute Marissa Mccormack D.O. 09/22/18 0917 FRONT END DEVELOPER documented in this encounter Plan of Treatment Not on filedocumented as of this encounter Procedures Procedure Name Priority Date/Time Associated Diagnosis Comme nts RAPID STREP A STAT 09/22/2018 8:37 AM Results for this SCREEN LEAD FRONT END DEVELOPER procedure are i n the results section. BACTERIAL CULTURE, STAT 09/22/2018 8:37 AM Res ults for this THROAT LEAD FRONT END DEVELOPER procedure are i n the results section. documented in this encounter Results Bacterial Culture, Throat (09/22/2018 8:37 AM LEAD FRONT END DEVELOPER) [facility] Method Time Signature Throat No growth of 09/24/2018 [facility] Culture Streptococcus 7:07 AM LEAD FRONT END DEVELOPER HEALTH pyogenes [facility] Specimen Anatomical Collection Method Collection Time Receive d Time (Source) Location / / Volume Laterality Throat Swab 09/22/2018 8:37 AM 8 3:28 LEAD FRONT END DEVELOPER PM LEAD FRONT END DEVELOPER Marissa Mccormack D.O. LAB MICROBIOLOGY - GENERAL O RDERABLES Performing Organization Address City/State/ZIP Code Phon e Number [facility] [address] [place] [address] LAB Rapid Strep A Screen (09/22/2018 8:37 AM LEAD FRONT END DEVELOPER) P athologist Signature Rapid Strep A Negative Negative 09/22/2018 [facility] Screen 8:52 AM [facility] LAB Specimen Anatomical Collection Method Collection Time Receive d Time (Source) Location / / Volume Laterality Varies (Throat) 09/22/2018 8:37 AM 2017 8:41 LEAD FRONT END DEVELOPER AM LEAD FRONT END DEVELOPER Marissa Mccormack D.O. LAB MICROBIOLOGY - GENERAL O RDERABLES Performing Organization Address City/State/ZIP Code Phon e Number [address] [address] [place] LAB documented in this encounter Visit Diagnoses Diagnosis Pharyngitis Acute - Primary documented in this encounter Care Teams Poacher Operator Relationship Specialty Start Date End Date Elsewhere, Pcp PCP - General Family Medicine 01/08/18 01/12/21 documented as of this encounter
--- OUTSIDE RECORDS SUMMARY | 2022-06-18 19:28 | XMS_ITS | Encounter Summary ---
:1990 Author Organization [facility] Address [address] [place] [address] Care Team Providers Name Role Phone Elsewhere, [...] Type Department Care Team Description 07/23/2019 Emergency [place] Emergency Bull Calderon Cos tochondritis (Primary Department M.D. Dx) [address] [facility] [place] [phone] Social History Tobacco Use Types Packs/Day Years [...] do you attend restoration or Never 2021 protestant services? Do you [...] at Date Recorded Female 12/02/2021 5:19 PM ORCHARD SPRAYER documented as of this encounter Last Filed [...] cannot be sent through Care Everywhere. Costochondritis Irqx-uz-Ctvp (Armenian)documented in this encounter Medications at Time [...] Plan Impression: Costochondritis Plan: Patient has utilize zkjx-auw-cwpmnzm medications without improvement or alteration in her symptomatology. Patient be started on prednisone 20 mg daily for 5 days, the 1st dose administered here in the emergency department. Ultram 50 mg 1/2-1 tablet to be utilized every 6 hours as needed for painrating 7-10/10 severity, quantity 15 with no refills was prescribed from the IMScouting medication dispenser as it is currently raining [...] dose documented in this encounter Care Teams Gun Perforator Loader Relationship Specialty Start Date End Date Elsewhere, Pcp PCP - General Family Medicine 01/08/18 01/12/21 documented as of this encounter
--- OUTSIDE RECORDS SUMMARY | 2022-06-18 19:28 | XMS_ITS | Encounter Summary ---
:1990 Author Organization [facility] Address [address] [place] [address] Care Team Providers Name Role Phone Elsewhere, Pcp Primary Care Provider Unavailable Reason for Visit MRI/CAT/PET Scan (Routine) - Closed Specialty Diagnoses / Procedures Referred By Contact Refer red To Contact Radiology Diagnoses Pain Cervical Esther Andrea, DIRECTOR OF ANALYTICS, [facility] Region Procedures CT Cervical Spine without IV Contrast C.N.P., D.N.P. [address] [place] [address] Referral ID Status Reason Start Date Expiration Date Visits Requ ested Visits Authorized [id number] Closed 08/01/2019 07/31/2020 1 1 Encounter Details Date Type Department Care Team Description 08/01/2019 Hospital Encounter Department of Radiology Eliazar Andrea britt, in [facility] FATOU, C.N.P., [address] [place] D[place]P. [place], [place] [phone] [place] [phone] [place] [phone] Social History Tobacco Use Types Packs/Day Years [...] do you attend muslim or Never 2021 yarsanism services? Do you belong to any clubs or No 11/20/2021 organizations such as muslim groups, unions, fraSeatNinja or athletic groups, or school groups? How [...] at Date Recorded Female 12/02/2021 5:19 PM FOOT ROENTGENOLOGIST documented as of this encounter Medications at [...] N/A Computed Tomography ARZ LOS, Neuroradiology [facility] Specimen (Source) Anatomical Collection Method Collection Time [...] IMPRESSION: No acute cervical spine fracture or rbyan lignment. Esther Andrea APRN C.N.P., D.N.P. IMG CT PROCEDURES documented in this encounter Visit Diagnoses Not on filedocumented in this encounter Care Teams Pet Technologist Relationship Specialty Start Date End Date Elsewhere, Pcp PCP - General Family Medicine 01/08/18 01/12/21 documented as of this encounter
--- OUTSIDE RECORDS SUMMARY | 2022-06-18 19:28 | XMS_ITS | Encounter Summary ---
:1990 Author Organization [facility] Address [address] [place] [address] Care Team Providers Name Role Phone Elsewhere, Pcp Primary Care Provider Unavailable Reason for Visit Reason Comments PAYAL has had symptoms for 3-4 we eks Muscle Pain chest and back -05/31, has been using ibuprofen Encounter Details Date Type Department Care Team Description 10/31/2018 Emergency [place] Emergency Valerie Malone, Infec kori Upper Department MMaribellDMaribell Respiratory (Primary [address] Dx) [place] [phone] Social History Tobacco Use Types Packs/Day Years [...] do you attend moravian or Never 2021 judaism services? Do you belong to any clubs [...] at Date Recorded Female 12/02/2021 5:19 PM ENDLESS BELT FINISHER documented as of this encounter Last Filed Vital Signs Vital Sign Reading Time Taken Comments Blood Pressure 134/95 10/31/2018 6:52 PM ENDLESS BELT FINISHER Pulse 81 10/31/2018 6:06 PM ENDLESS BELT FINISHER Temperature 37.2 ??C (99 ??F) 10/31/2018 6:52 PM ENDLESS BELT FINISHER Respiratory Rate 20 10/31/2018 6:06 PM ENDLESS BELT FINISHER Oxygen Saturation 98% 10/31/2018 6:06 PM ENDLESS BELT FINISHER Inhaled Oxygen Concentration - - Weight 73.3 kg (161 lb 9.6 oz) 10/31/2018 6:04 PM ENDLESS BELT FINISHER Height 152.4 cm (5') 10/31/2018 6:04 PM ENDLESS BELT FINISHER Body Mass Index 31.56 10/31/2018 6:04 PM ENDLESS BELT FINISHER documented in this encounter Discharge Instructions AttachmentsThe following attachments cannot be sent through Care Everywhere. Upper Respiratory Infection Adult Jlzq-tl-Hhqi (Luxembourgish)documented in this encounter Medications at Time of [...] Upper Respiratory Valerie Malone M.D. 10/31/18 1840 ESS BELT FINISHER documented in this encounter Plan of Treatment Not on filedocumented as of this encounter Visit Diagnoses Diagnosis Infection Upper Respiratory - Primary documented in this encounter Care Teams Pediatrician Active Practice Relationship Specialty Start Date End Date Elsewhere, Pcp PCP - General Family Medicine 01/08/18 01/12/21 documented as of this encounter
--- OUTSIDE RECORDS SUMMARY | 2022-06-18 19:28 | XMS_ITS | Encounter Summary ---
:1990 Author Organization [facility] Address [address] [place] [address] Care Team Providers Name Role Phone Elsewhere, Pcp Primary Care Provider Unavailable Reason for Visit Reason Comments Vomiting Pt presents w/nausea, vomiti ng and diarrhea onset 2300 yesterday. Encounter Details Date Type Department Care Team Description 11/11/2019 Emergency [place] Emergency Sigrid Forbes ausea And Vomiting (Primary Dx); Department D, M.D. Diarrhea [address] [place] [phone] (Wo rk) Social History Tobacco Use Types [...] do you attend baptism or Never 2021 mandaen services? Do you [...] at Date Recorded Female 12/02/2021 5:19 PM CARPET LAYER HELPER documented as of this encounter Last Filed Vital Signs Vital Sign Reading Time Taken Comments Blood Pressure 112/79 11/11/2019 7:01 AM CARPET LAYER HELPER Pulse 81 11/11/2019 7:01 AM CARPET LAYER HELPER Temperature 36.4 ??C (97.5 ??F) 11/11/2019 7:01 AM CARPET LAYER HELPER Respiratory Rate 16 11/11/2019 7:01 AM CARPET LAYER HELPER Oxygen Saturation 93% 11/11/2019 7:01 AM CARPET LAYER HELPER Inhaled Oxygen Concentration - - Weight 71.8 kg (158 lb 4.6 oz) 11/11/2019 5:50 AM CARPET LAYER HELPER Height 152.4 cm (5') 11/11/2019 5:50 AM CARPET LAYER HELPER Body Mass Index 30.91 11/11/2019 5:50 AM CARPET LAYER HELPER documented in this encounter Discharge Instructions Discharge InstructionsToSigrid geronimo M.D. - 11/11/2019 6:51 AM CARPET LAYER HELPER Return to the Emergency Department/ if he [...] clinic by calling the appointment center at [phone]. Thank you for choosing [facility] for your care. It was a pleasure taking care of you today in our Emergency Department. ET LAYER HELPER AttachmentsThe following attachments cannot be sent through Care Everywhere. Nausea and Vomiting Adult (Samoan)Diarrhea Adult Shvs-ie-Rskj (Samoan) documented in this encounter Medications at Time [...] Forbes M.D. - 11/11/2019 6:16 AM CST [facility] EMERGENCY DEPARTMENT ENCOUNTER Patient Name: Lulu Mata PCP: Primary Care Physician SUBJECTIVE CHIEF COMPLAINT/REASON FOR VISIT Vomiting (Pt presents w/nausea, vomiting and diarrhea onset 2300 yesterday.) HISTORY OF PRESENT ILLNESS Lulu Mata is a 29 y.o. female with a history of asthma presenting with 7 hours of vomiting and diarrhea. She ate dinner at the [employer] last night. Several different types of food [...] felt well before eating dinner at the [employer]. She denies any recentabdominal pain, no prior [...] Forbes M.D. 11/11/19650 Sigrid Forbes M.D. 11/11/19654 ET LAYER HELPER documented in this encounter Plan of Treatment Not on filedocumented as of this encounter Visit Diagnoses Diagnosis Nausea And Vomiting - Primary Diarrhea documented in this encounter Administered Medications Inactive Administered Medications - up to 3 most recent administrations Medication Order MAR Action Action Date Dose Rate Site ondansetron ODT disintegrating Given 11/11/2019 6:10 AM CARPET LAYER HELPER 8 mg tablet 8 mg (ZOFRAN-ODT) 8 mg, oral, Once, On Sun11/11/19 at 0605, For 1 dose, When splitting ODT at bedside, handle with gloves and a pill splitter to prevent moisture contact. documented in this encounter Active and Recently Administered Medications Times are shown in CARPET LAYER HELPER. Scheduled Medication Order 11/09/2019 11/10/2019 11/11/2019 ondansetron ODT disintegrating tablet 8 mg (ZOFRAN-ODT) ([facility] ED) 0610 (Given - Provider: Tara Brock R.N.) 8 mg, oral, Once, On Sun11/11/19 at 0605 , For 1 dose, When splitting ODT at bedside, handle with gloves and a pill splitter to prevent moisture contact. documented in this encounter Care Teams Director Of Resource Development Relationship Specialty Start Date End Date Elsewhere, Pcp PCP - General Family Medicine 01/08/18 01/12/21 documented as of this encounter
--- OUTSIDE RECORDS SUMMARY | 2022-06-18 19:28 | XMS_ITS | Encounter Summary ---
:1990 Author Organization [facility] Address [address] [place] [address] Care Team Providers Name Role Phone Elsewhere, Pcp Primary Care Provider Unavailable Encounter Details Date Type Department Care Team Description 01/28/2019 Hospital Encounter Department of Radiology Ben Arce M.D. Edema Leg in [place], [place] [address] [place] [phone] Social History Tobacco Use Types Packs/Day Years [...] Date Recorded Female 12/02/2021 5:19 PM PAPER SLITTER documented as of this encounter Medications at [...] Leg documented in this encounter Care Teams Cushion Sewer Relationship Specialty Start Date End Date Elsewhere, Pcp PCP - General Family Medicine 01/08/18 01/12/21 documented as of this encounter
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
--- OUTSIDE RECORDS SUMMARY | 2022-06-18 19:29 | XMS_ITS | Encounter Summary ---
:1990 Author Organization [facility] Address [address] [place] [address] Care Team Providers Name Role Phone Unavailable Primary Care Provider Unavailable Encounter Details Date Type Department Care Team Description 01/15/2017 Hospital Encounter HX [facility] MAP[facility]rezN Felix Guillen M.D. [address] [place], [place] [address] (Wo rk) Social History [...] do you attend tenriism or Never 2021 yazidi services? 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 [address] Name: DILLAN MATA Date of : 1990 12:00 AM Visit Date: 01/15/2017 7:46 PM [facility] Number: [phone] Address: [address] [place] [id number] Primary Care Provider: PCP, BHARATHI IMPORTANT: [facility] in [place] would like to thank you for allowing [...] becomes cold, blue, numb or tingly ?? [phone] [facility], [address] [place] [address], [place] [address]. All rights reserved. This information is not [...] if you dont have one. Go to [email or web address] and click on Create Your Account. Then, follow the directions to complete the online form. Youll be asked for your [facility] number which you can find at the [...] ride home with a responsible green party. LARISSA Carrizales KALLIE , or responsible green party have received this information and my questions have been answered. I have discussed any challenges I see with this plan with the nurse or physician. Patient Signature or Responsible Republican/Relationship Date Time Provider Signature Date Time IMPORTANT: [...] ride home with a responsible green party. LARISSA Carrizales KALLIE or responsible green party have received this information and my questions have been answered. I have discussed any challenges I see with this plan with the nurse or physician. Patient Signature or Responsible Republican/Relationship Date Time Provider Signature Date Time Source: Getix Document Id: [id number] Angelica Sandra R.N. - 01/15/2017 11:20 PM CDT ED Depart Summary [facility] Emergency Department Clinical Discharge Summary PERSON INFORMATION Name DILLAN MATA Age 26 Years 1990 12:00 AM Sex Female Language Macedonian PCP PCP, ELSEWHERE Marital Status Unknown Visit Id Visit Reason Hand pain-swelling; SWOLLEN RIGHT HAND Specialty Enc Type Emergency Med Service Emergency Medicine Referred by Track Group MAQN ED Discharge 01/15/2017 11:10 PM Tracking Id [id number] Checkout 01/15/2017 11:10 PM Checkin 01/15/2017 7:46 PM Acuity 4 -Less Urgent Dispo Type * Discharged to Home or Self Care Arrival 01/15/2017 7:46 PM Reg Status LOS 000 03:24 Address: [address] [place] [id number] Comment: PROVIDER INFORMATION Provider Role Provider Contact Time ANGELICA SANDRA ED Nurse 01/15/17 19:57 NIKOS MENDEZ MD ED Provider 01/15/17 20:09 DIAGNOSIS Contusion Hand Initial R Comment: PATIENT EDUCATION INFORMATION Instructions: CONTUSION, Hand Follow up: With: Address: When: Follow up with primary care provider Within As Needed Comments: Call for follow up appointment. If symptoms worsen. Source: [facility] POWERCHART Document Id: [id number] documented in this encounter Medications at Time [...] ANGELICA SANDRA - 01/15/2017 23:19 CDT Source: [employer] Document Id: [id number] CDT!9 Angelica Sandra R.N. - 01/15/2017 11:05 [...] ANGELICA SANDRA - 01/15/2017 23:19 CDT Source: [employer] Document Id: [id number] CDT!9 Angelica Sandra R.N. - 01/15/2017 11:02 [...] Motor Response Sophie : Obeys simple commands [place] Coma Score : 15 ANGELICA SANDRA 01/15/2017 23:02 CDT GI Reassess GI Patient Stated Symptoms : None ANGELICA SANDRA - 01/15/2017 23:02 CDT /OB Reassess Patient Stated Symptoms : None ANGELICA SANDRA - 01/15/2017 23:02 CDT Source: [employer] P[employer]Pruffi Document Id: [id number] CDT!34 Kim Bartholomew R.N. - 01/15/2017 10:00 [...] Brenda RN - 01/15/2017 22:00 CDT Source: [employer] Document Id: [id number] CDT!15 Nikos Mendez M.D. - 01/15/2017 9:52 [...] Stat, Patient Bed, Once, 01/15/2017 21:53 CDT, [facility] Urology. Radiology results:Emergency physician interpretation: Creator: Nikos Mendez Date: Jan 15, 2017 23:04:53 Subject: Preliminary ER Physician Findings (preliminary only - not final):Three-view x-ray of the right hand: Negative for fracture or dislocation. Brant Cortes Impression and Plan Diagnosis Contusion Hand Initial R (Discharge, Emergency medicine, Medical) Plan Condition: Stable. Disposition: Discharged: Time 01/15/2017 23:05:00, to home. 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 - 01/15/2017 8:55 PM [...] Response Sophie : Oriented Best Motor Response [place] : Obeys simple commands Sophie Coma Score : 15 ANGELICA SANDRA 01/15/2017 20:55 CDT GI Reassess GI Patient Stated Symptoms : None ANGELICA SANDRA 01/15/2017 20:55 CDT Source: [facility] POWERCHART Document Id: [id number] CDT!3 Angelica Sandra R.N. - 01/15/2017 7:51 [...] PNED ; Probability: 0 ; Diagnosis Code: [id number] Triage Chief Complaint Description : Pt presents [...] vehicle, Ambulatory Track : Medical Languages : Macedonian Vital Signs Assessed : Yes GCS Assessed [...] kg/m2 ANGELICA SANDRA - 01/15/2017 19:51 CDT [place] Coma Eye Opening Response [place] : Spontaneously Best Verbal Response [place] : Oriented Best Motor Response [place] : Obeys simple commands Sophie Coma Score [...] None ANGELICA SANDRA 01/15/2017 19:51 CDT Source: [employer] Document Id: [id number] CDT!117 documented in this encounter Miscellaneous Notes Miscellaneous - Conversion, Historical Provider Ser - 01/15/2017 11:10 PM CDT Coding Summary-Paper Based CODING DATE: 01/22/2017 FINAL [facility] STATUS: * Discharged to Home [...] DUONG Date Saved: 01/22/2017 10:08 am Source: Getix Document Id: [id number] Miscellaneous - Angelica Sandra RMaribellN. - 01/15/2017 11:05 PM CDT Valuables/Belongings Valuables/Belongings Entered On: 01/15/2017 23:20 CDT Performed On: 01/15/2017 23:05 CDT by ANGELICA SANDRA Valuables/Belongings Belongings Sent Home With : all belongings sent home with patient ANGELICA SANDRA - 01/15/2017 23:20 CDT Source: [employer] Document Id: [id number] CDT!3 documented in this encounter Plan of [...]
--- OUTSIDE RECORDS SUMMARY | 2022-06-18 19:29 | XMS_ITS | Encounter Summary ---
:1990 Author Organization [facility] Address [address] [place] [address] Care Team Providers Name Role Phone Elsewhere, Pcp Primary Care Provider Unavailable Reason for Visit Reason Comments Headache frontal and middle of head Earache Cipriano ear pain Sore Throat drainage Sinus Problem over 1 month Encounter Details Date Type Department Care Team Description 01/07/2018 Office Visit Express Care in [facility] [address], [place] FATOU Samuel, C.N.P., (Primary Dx) [address] [place] [address] Social History Tobacco Use Types Packs/Day Years [...] you attend latter day or Never 2021 christian services? 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 She works at [employer] with several people throughout theday. She has [...] Primary documented in this encounter Care Teams Transportation Technician Relationship Specialty Start Date End Date Elsewhere, Pcp PCP - General Family Medicine 01/08/18 01/12/21 documented as of this encounter
--- OUTSIDE RECORDS SUMMARY | 2022-06-18 19:29 | XMS_ITS | Encounter Summary ---
:1990 Author Organization [facility] Address [address] [place] [address] Care Team Providers Name Role Phone Unavailable Primary Care Provider Unavailable Encounter Details Date Type Department Care Team Description 06/14/2017 Hospital Encounter HX [facility] MA[facility] Essence Yin M.D. [address] [place], [place] [phone] (Wo rk) Social History [...] do you attend voodoo or Never 2021 orthodoxy services? 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 encounter Last Filed [...] 06/14/2017 9:06 PM CDT ED Depart Summary [facility] Emergency Department Clinical Discharge Summary PERSON INFORMATION Name DILLAN MATA Age 27 Years 1990 12:00 AM Sex Female Language Bahamian PCP PCP, ELSEWHERE Marital Status Unknown Visit Id Visit Reason Foot injury - Minor; FOOT PAIN Specialty Enc Type Emergency Med Service Emergency Medicine Referred by Track Group AAKASHMonica ED Discharge 06/14/2017 7:45 PM Tracking Id [id number] Checkout 06/14/2017 7:45 PM Checkin 06/14/2017 6:17 PM Acuity 4 -Less Urgent Dispo Type * Discharged to Home or Self Care Arrival 06/14/2017 6:17 PM Reg Status LOS 000 01:28 Address: [address] [place] [phone] Comment: PROVIDER INFORMATION Provider Role Provider Contact Time CHAVA KUHN SPICE GRINDER Nurse 06/14/17 18:44 CHU ADKINS MD ED Provider 06/14/17 18:52 ANDREW BROCK SPICE GRINDER Nurse 06/14/17 19:21 DIAGNOSIS Sprain Foot Initial L Comment: PATIENT EDUCATION INFORMATION Instructions: SPRAIN FOOT Follow up: With: Address: When: Follow up with primary care in 1 week if not improving. Return to the ED for increasing pain or swelling. Within As Needed Source: [facility] POWERCHART Document Id: [id number] Andrew Brock R.N. - 06/14/2017 9:06 PM CDT ED Discharge Instructions [address] [address] Name: DILLAN MATA Date of : 1990 12:00 AM Visit Date: 06/14/2017 6:17 PM [facility] Number: [phone] Address: [address] [facility] [phone] Primary Care Provider: PCPBHARATHI IMPORTANT: [facility] in [place] would like to thank you for allowing [...] become cold, blue, numb, or tingly ?? [phone] [facility], [address] [place] [address]. All rights reserved. This information is not [...] if you dont have one. Go to [email or web address] and click on Create Your Account. Then, follow the directions to complete the online form. Youll be asked for your [facility] number which you can find at the [...] arrange a ride home with a responsible republican. All, DILLAN MATA , or responsible republican have received this information and my questions have been answered. I have discussed any challenges I see with this plan with the nurse or physician. Patient Signature or Responsible Alliance Party/Relationship Date Time Provider Signature Date Time [...] arrange a ride home with a responsible republican. I, DILLAN MATA , or responsible republican have received this information and my questions have been answered. I have discussed any challenges I see with this plan with the nurse or physician. Patient Signature or Responsible Alliance Party/Relationship Date Time Provider Signature Date Time This document has images extracted. Please consider using [employer]vers[employer] for all your patient education needs. Source: Sensitive Object Document Id: [id number] Andrew Brock R.N. - 06/14/2017 7:45 PM CDT ED Disposition Summary ED Disposition Summary Entered On: 06/14/2017 20:33 CDT Performed On: 06/14/2017 19:45 CDT by ANDREW BROCK SPICE GRINDER Disposition Summary Present in Room During Exam/Procedure : Alone Mode of Discharge : Ambulatory Transportation : Private vehicle Discharge From ED With : Home Med List Printed Discharge Instructions Given to Patient : Yes Patient Status at Discharge from ED : Improved 30 Minutes Critical Care : No ANDREW BROCK RN - 06/14/2017 20:33 CDT Source: Sensitive Object Document Id: [id number] CDT!9 documented in this encounter Medications at [...] BROCK RN - 06/14/2017 21:05 CDT [facility] Document Id: [id number] CDT!18 Andrew Brock R.N. - 06/14/2017 7:30 [...] BROCK RN - 06/14/2017 22:10 CDT Source: [facility] POWERCHART Document Id: [id number] CDT!5 Andrew Brock R.N. - 06/14/2017 7:21 [...] ANDREW BROCK RN - 06/14/2017 19:21 CDT [place] Coma Eye Opening Response [place] : Spontaneously Best Verbal Response [place] : Oriented Best Motor Response Sophie : [...] BROCK RN - 06/14/2017 19:21 CDT [facility] Document Id: [id number] CDT!37 Chu Adkins M.D. - 06/14/2017 6:52 [...] Stat, Patient Bed, Once, 06/14/2017 18:53 CDT, [facility] Urology. Radiology results:* Final Report * [...] Transcribed by: ROSHAN Technologist: NAYANA ESPOSITO RT(R)(CT) [id number] This document has an image Result type: XR Foot Left 3 or more views Result date: June 14, 2017 19:14 CDT Result status: Auth (Verified) Result title: XR Foot Left 3 or more views Performed by: DAVID SEPULVEDA MD on June 14, 2017 19:18 CDT Verified by: DAVID SEPULVEDA MD on June 14, 2017 19:18 CDT Encounter info: [id number], [facility], Emergency, 06/14/2017 - . [...] ADKINS MD On: 06/14/2017 07:35 PM Source: [facility] POWERCHART Document Id: {[id number]} Chava Kuhn R.N. - 06/14/2017 6:37 PM [...] PNED ; Probability: 0 ; Diagnosis Code: [id number] Triage Triage Treatments : Ice to affected [...] Ambulatory Track : Trauma Other Languages : Bahamian Vital Signs Assessed : Yes Treatments Prior [...] DCP GENERIC CODE Tracking Group : [facility] ED Tracking Acuity : 4 -Less Urgent [...] Heart Rhythm : Regular Skin Color : [place] Skin Description : Normal Skin Temperature : [...] KUHN RN - 06/14/2017 18:37 CDT Source: [facility] [employer] Document Id: [id number] CDT!3 documented in this encounter Miscellaneous Notes Miscellaneous - Andrew Brock RHarish - 06/14/2017 7:45 PM CDT Valuables/Belongings Valuables/Belongings Entered On: 06/14/2017 20:33 CDT Performed On: 06/14/2017 19:45 CDT by ANDREW BROCK RN Valuables/Belongings Belongings Sent Home With : All sent w/pt at d/c Home Medication Disposition : None brought in with patient ANDREW BROCK RN - 06/14/2017 20:32 CDT Source: Sensitive Object Document Id: [id number] CDT!4 Miscellaneous - Conversion, Historical Provider Ser - 06/14/2017 7:45 PM CDT Coding Summary-Paper Based CODING DATE: 06/26/2017 FINAL AAKASH [place] [facility] STATUS: * Discharged to Home or [...] LORD Date Saved: 06/26/2017 09:17 am Source: Sensitive Object Document Id: [id number] documented in this encounter Plan of Treatment [...] Procedure Note David Sepulveda M.D. / Provider, Anrdew becerril M.D. - 07/26/2017 EXAM: XR Foot [...]
--- OUTSIDE RECORDS SUMMARY | 2022-06-18 19:29 | XMS_ITS | Encounter Summary ---
:1990 Author Organization [facility] Address [address] [place] [address] Care Team Providers Name Role Phone Elsewhere, Pcp Primary Care Provider Unavailable Reason for Visit Reason Comments Sinus Symptoms 3 wks ago; started with ST, then ears and facial pressure. Pt using NetiPot. 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 (Primary Dx) [address] [place] [phone] Social History Tobacco Use Types Packs/Day Years [...] do you attend anglican or Never 2021 gnosticism services? 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 Recently moved to [place]. REVIEW OF SYSTEMS Constitutional: Negative for fever. [...] Primary documented in this encounter Care Teams Inner Tube Cutter Relationship Specialty Start Date End Date Elsewhere, Pcp PCP - General Family Medicine 01/08/18 01/12/21 documented as of this encounter
--- OUTSIDE RECORDS SUMMARY | 2022-06-18 19:29 | XMS_ITS | Encounter Summary ---
:1990 Author Organization [facility] Address [address] [place] [address] Care Team Providers Name Role Phone Elsewhere, Pcp Primary Care Provider Unavailable Reason for Visit Reason Comments Skin Problem pt is noted to have bump i n left armpit and left groin, both are painful, denies fever or chi lls, states the leg bump popped on sunday Encounter Details Date Type Department Care Team Description 08/07/2018 Emergency [place] [facility] Car buncle Of Groin (Primary Dx); Department M.D. Carbuncle Axilla Left [address] [place] [phone] [phone] Social History Tobacco Use Types Packs/Day Years [...] do you attend confucianism or Never 2021 yarsani services? 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
--- NOTE | 2022-06-18 19:45 | ED.NURSE ---
OB assessment done. pt. transferred to OB per protocol.
--- NOTE | 2022-06-18 21:22 | P.OBO_ITS ---
OB Outpatient HPI History of Present Illness Date Seen: 06/18/22 History of Present Illness: 32 year old -1-1-1 woman at 31 6/7 weeks gestation by 1st trimester US, CARLOS 08/14/22, presents with complaints of nausea, vomiting, and abdominal pain. She had a similar episode of intense abdominal pain in early April, and was evaluated in [place]. She reports no cause was found. She does have GERD, and is maintained on a PPI. For the past week, she has had nausea and vomiting off and on. Today, vomiting has intensified. She has developed diffuse abdominal pain as well. In addition, she reports low back pain, which was present during her 1st labor. Her history is notable for problems as described below. She has had 1 minimally elevated blood pressure in clinic, and had another 1 in mild range here. She has an appointment pending to initiate insulin for gestational diabetes. Review of systems: She denies any pain with urination or blood in urine. She reports intermittent constipation, but with her last bowel movement today. She denies any hematochezia. Good movement. 1. Transfer of OB care at 25 weeks from [facility]. * Records requested: [] * labs 12/20/2021 Blood type O positive, antibody screen negative, hemoglobin 14.1, platelets 360, rubella immune, HBsAg neg, RPR NR, HIV NR, urine culture no growth, A1c 5.2, HCV neg, genetic screening neg, female. Pap 11/24/2021: NIL, HPV neg. * Imagin12/20/21 First trimester ultrasound, 6w 1d, CARLOS 08/14/22. Anatomy scan: [] 2. conceived on Nexplanon * Device removed in first-trimester 3. History preeclampsia * On aspirin 81 mg daily * Home BP monitoring, home cuff prescription sent to pharmacy 05/01/2022 * BP elevated on 05/01/2022. Labs: Platelets 238, AST 14, ALT 10, creatinine 0.5, urine P/C 0.0 4. History of delivery, labor induced at 32-33 weeks secondary to severe preeclampsia * Infant son reportedly stillborn but was resuscitated and did well. 5. History of gestational diabetes, currently gestational diabetic * A1c 5.2% * 1 hour glucose screen: 178 * 3 hour GTT: 3/4 values elevated = gestational diabetes * Started on metformin, has appt to discuss insulin 6. GERD * Not well controlled on famotidine * Prescription sent for omeprazole 40 mg daily 05/01/2022 Meds Home Medications and Allergies Home Medications Medication Instructions Recorded Confirmed Type PNV no.151-iron 27 mg-folic 800 cap PO 05/01/22 06/14/22 History mcg-omega3 260 xq-kzj-hhu-fish capsule ( Multi-DHA (with vitamin K)) aspirin 81 mg capsule 81 mg PO QDAY 05/01/22 06/18/22 History Allergies Allergy/AdvReac Type Severity Reaction Status Date / Time No Known Drug Allergies Allergy Verified 06/14/22 14:55 PFSH Medical History Asthma Gestational diabetes Gestational hypertension Superficial thrombophlebitis Surgical History (Updated 05/01/22 @ 13:56 by Alyx Murdock MD) Sealevel teeth removed Social History (Updated 05/01/22 @ 14:02 by Alyx Murdock MD) Smoking Status: Never smoker How often do you have a drink containing alcohol: never AUDIT-C Alcohol total score: 0 Non-prescribed substance use: denies use Little interest or pleasure in doing things: not at all Feeling down, depressed, or hopeless: several days History History 3 Elective abortions 0 Para 3 Spontaneous abortions 1 Hx # Term Pregnancies 0 Ectopic pregnancies Hx # Pregnancies 1 Multiple births Number of Living Children 1 Past Pregnancies Del. Date GA/Weeks Outcome Route wt Inf Gender Labor Lgth Anesthesia Location Provider Compli 05/04/13 33 live - Male [facility] preeclampsia gestational diabetes OB - H&P: Exam Physical Exam Vital signs: Temp Pulse Resp BP Pulse Ox O2 Del Method 98.6 F 83 18 138/88 97 06/18/22 20:10 06/18/22 21:14 06/18/22 19:11 06/18/22 21:14 06/18/22 21:10 06/18/22 19:11 Narrative: Physical exam: General: Appears quite uncomfortable during our discussion, but is distractible Psych: Alert and oriented x3, full affect HEENT: Normocephalic, atraumatic Abdomen: Soft, gravid, diffusely tender to palpation over the entire uterus and abdomen save the right upper quadrant. No rigidity. Back: Diffusely tender over the entire spine from the lumbosacral region to the thoracic region. Also diffusely tender over paraspinal and lateral abdomen diffusely extending from the lumbosacral region to the thoracic region. No definitive costovertebral angle tenderness. Lower extremities: No edema or erythema Pelvic exam: Cervix fingertip, long, high, posterior, soft Fetus (Single) Heart Rate Baseline: 135 Monitor Accelerations: Present Monitor Decelerations: None Data Processing Systems Project Planner Variability: Moderate (11-25) Labs Labs Blood count: WBC 12.19, hemoglobin 12.8, platelets 223 BUN 9, creatinine 0.4 AST 17, ALT 9 Urine showing 4+ ketones, negative protein, negative glucose, negative blood, negative nitrites and leukocyte esterase fibronectin negative Ultrasound: Breech, posterior placenta, SDP 4.8 cm Assessment and Plan Assessment and plan (1) Abdominal pain affecting : Status: Acute Assessment and Plan: I suspect that a component and this is related to viral gastroenteritis, given her recent onset of nausea and vomiting. Evaluation is to include complete blood count, liver function panel, basic metabolic panel, glucose, and comprehensive ultrasound with assessment of placenta. If these tests are unrevealing, I plan to treat her simply with IV hydration, antiemetics, and morphine p.r.n. for pain. (2) contractions: Status: Acute Assessment and Plan: Without cervical change. I do not suspect labor. fibronectin was collected to my exam and is pending. (3) Gestational hypertension: Status: Acute Assessment and Plan: With history of severe preeclampsia in early 3rd trimester. HELLP labs are collected and pending. She does not have severe range blood pressure elevation. (4) Gestational diabetes mellitus (GDM): Status: Acute Assessment and Plan: Currently taking only metformin 500 mg HS. Will follow up with endocrine. Plan Update: After review of all data, she does not have proteinuria or abnormality of HELLP labs. FFN negative. UA reassuring, culture pending. Pain increased after observation, IV hydration, antiemetics. She was discharged home. She does now have gestational HTN, and will need monitoring moving forward. She is to follow up later this week.
[2022-06-18 21:43] LABS: Hematocrit 37.1 % (33.0-51.0); Hemoglobin* 12.8 gm/dL (12.0-16.0); Mean Corpuscular HGB Conc 35 gm/dL (32-36); Mean Corpuscular Hemoglobin 29 pg (26-34); Mean Corpuscular Volume 85 fL (80-100); Platelet Count* 223 K/uL (140-440); Red Blood Count 4.39 m/uL (4.00-5.20); White Blood Count* 12.19 K/uL (4.50-11.00)
--- NOTE | 2022-06-18 21:51 | CRLHL7_ITS ---
For Patients: As a result of the Century Cures Act, medical imaging exams and procedure reports are released immediately into your electronic medical record. You may view this report before your referring provider. If you have questions, please contact your health care provider. INDICATION: labor. TECHNIQUE: Ultrasound limited OB pelvis transabdominal. Real-time norton-scale imaging of the pelvis was performed. COMPARISON: 05/17/2022. FINDINGS/IMPRESSION: Sonographic imaging demonstrates a single living intrauterine gestation. Fetus demonstrates a regular cardiac rate of 144 beats per minute. Fetus has a breech orientation. The placenta lies posterior without evidence of placenta previa. Placenta appears intact. Amniotic fluid volume appears normal, with single deepest pocket measuring 4.8 cm. Dictated by Charlie Smith MD @ 06/18/2022 11:27:32 PM (Electronically Signed)
[2022-06-18 21:53] LABS: Slide Review Reflex No
[2022-06-18 22:11] LABS: Fetal Fibronectin* Negative (Negative)
[2022-06-18] MEDS: LACTATED RINGERS 1000 ML 1,000 ML 500 ML IV (22:13)
[2022-06-18 22:33] LABS: Blood Urea Nitrogen* 9 mg/dL (5-24); Creatinine* 0.4 mg/dL (0.5-1.5); Est. Creatinine Clearance* 143.69; Estimated Glomerular Filt Rate 134 ml/min
[2022-06-18 22:34] LABS: Alanine Aminotransferase* 9 U/L (4-35); Aspartate Amino Transferase* 17 U/L (12-35)
[2022-06-18] MEDS: MORPHINE 2 MG/ML inj IVP (23:29)
[2022-06-18] MEDS: PROMETHAZINE 25 MG/ML INJ 12.5 MG IVP (23:30)
[2022-06-19] VITALS (11 sets, daily range): BP systolic 109–121; BP diastolic 66–80; PULSE 67–79
[2022-06-19 01:05] LABS: Appearance Urine Slightly Cloudy (Clear); Bilirubin Urine Negative (Negative); Blood Urine Negative (Negative); Color Urine Yellow (Yellow); Glucose Urine Negative (Negative); Ketones Urine 4+ (Negative); Leukocyte Esterase Urine Negative (Negative); Nitrite Urine Negative (Negative); Protein Urine Negative (Negative); Specific Gravity Urine 1.025 (1.000-1.030); Urobilinogen Urine 0.2 (0.2-1.0)
[2022-06-19 01:16] LABS: RBC Urine 0-2 (0-2); WBC Urine 0-2 (0-5)
[2022-06-19 01:17] LABS: Bacteria Urine Moderate; Calcium Oxalate Crystals Urine Moderate; Mucus Urine Few; Squamous Epithelial Cell Urine Moderate (None-Few)
--- NOTE | 2022-06-19 05:23 | PC.OBNST ---
NST Note NST Note Start: 06/18/22 19:28 Freq: ONCE Status: Active Protocol: Document 06/19/22 04:03 AVL (Rec: 06/19/22 04:07 AVL [id number]) NST Note 3 Para (# of births) 3 EDC 08/14/22 Gestational Age In Weeks & Days 32 Weeks & 0 Days High Risk Factors High Blood Pressure - Gestational,Diabetes - Gestational Oral Hypoglycemics ,History of Labor/ Delivery Patient Presented with Complaint(s) of Contractions/cramping,Pain, Nausea and vomiting If Pain, describe location abdominal tenderness Reactive Yes Appropriate for Gestational Age Yes KATHI Pierre RN Date 06/19/22 Reactive Yes Appropriate for Gestational Age Yes KATHI Rivera RN OB NST charge Yes Complete NST Note via Write Note Yes The provider's electronic signature indicates the NST is reactive/appropriate for gestational age. *Note to provider: If an addendum is required, open the patient's chart and click on the note under the Nurse/Allied Health tab.
== END 2022-06-19 02:50 | disposition home or self-care (01) ==
LOC: ED 19:23 → OB 19:24 → ED 19:31 → OB 19:31
PROVIDERS: Obstetrics & Gynecology; Visit Provider Obstetrics & Gynecology
DX: O26.893 Other specified pregnancy related conditions, third trimester (principal); R10.9 Unspecified abdominal pain; O24.419 Gestational diabetes mellitus in pregnancy, unspecified control; O13.3 Gestational [pregnancy-induced] hypertension without significant proteinuria, third trimester; O47.03 False labor before 37 completed weeks of gestation, third trimester; Z3A.31 31 weeks gestation of pregnancy
CPT/HCPCS: 36415; 59025; 76815; 81003; 81015; 82565; 84112; 84450; 84460; 84520; 85027; 87086; 99213; J2270; J2550; J7120

== ENCOUNTER 2022-06-20 18:47 | Outpatient (CLI) | payer MEDICAID, SELFPAY ==
--- OUTSIDE RECORDS SUMMARY | 2022-06-20 18:48 | XMS_ITS | Clinical Summary ---
:1990 Author Organization [facility] [place] [address] Care Team Providers Name Role Phone Genny Lazo MD Primary Care Provider [phone] Allergies No known active allergies Medications [...] Father Premature CHD (under age 60) Father [place] Allergies Mother Hypertension Mother Allergies Sister 4 [...] uts 05m/ lb 9.2 oz) Delivery Location: [facility] Comments: Induced preeclampsia Current OB Episode Summary Episode Dates Estimated Date of Pregravid Weight TWG (As of ) Delivery 04/04/2022 - Present Unknown (06/20/2022) Last Filed Vital Signs Vital Sign Reading [...] Height 152.4 cm (5') 09/23/2015 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 Body Mass Index 31.05 09/23/2015 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 Plan of Treatment Upcoming Encounters Date Type [...] TASHI AKINS MA 2012-Present [address] [place] [address] [address] [facility] (Home) [place], [place] [phone] (Work) Lulu Mata Personal/Family Self 1990 [address] [facility] (Home) [place], [place] [phone] (Work) Advance Directives Latest Code Status on File Code Status Date Activated Date Inactivated Comments Full Code 12/05/2012 6:17 AM 12/07/2012 9:39 PM Full Code 12/05/2012 1:03 AM 12/05/2012 6:17 AM Full Code 12/03/2012 4:10 PM 12/05/2012 1:03 AM Full Code 11/30/2012 9:24 PM 12/01/2012 3:09 AM Full Code 11/30/2012 9:03 PM 11/30/2012 9:24 PM Care Teams Aircraft Part Assembler Relationship Specialty Start Date End Date Genny Lazo MD PCP - General Family Practice 07/02/[address] [facility] [address] [facility] [place] [id number]
--- OUTSIDE RECORDS SUMMARY | 2022-06-20 18:49 | XMS_ITS | Encounter Summary ---
:1990 Author Organization [facility] Address [address] [place] [address] Care Team Providers Name Role Phone Ben Arce M.D. Primary Care Provider Encounter Details Date Type Department Care Team Description 12/20/2021 Hospital Encounter Department of Cheikh Gautam Laboratory Medicine Minoo Garcia Supervis ion Of Other in [facility] Unspecified [address] [place] [address] Social History Tobacco Use Types Packs/Day Years [...] do you attend denominational or Never 2021 oriental orthodox services? Do [...] at Date Recorded Female 12/02/2021 5:19 PM HOSPITAL WARD CLERK documented as of this encounter Medications [...] Encounter For Resul ts for this AM HOSPITAL WARD CLERK Supervision Of Other procedu re are in Normal the results Unspecified section. Trimester URINALYSIS WITH Routine 12/20/2021 11:26 Encounter For Results for this MICROSCOPIC IF AM HOSPITAL WARD CLERK Supervision Of Other proce dure are in INDICATED, U Normal the results Unspecified section. Trimester BACTERIAL CULTURE, Routine 12/20/2021 11:26 Encounter For Resu lts for this AEROBIC + SUSC, AM HOSPITAL WARD CLERK Supervision Of Other proc edure are in URINE Normal the results Unspecified section. Trimester documented in this encounter Results Hemoglobin A1c (12/20/2021 11:34 AM HOSPITAL WARD CLERK) P athologist Signature Hemoglobin A1c, 5.2 4.2 - 5.6 12/20/2021 [place] B % 12:27 PM HOSPITAL WARD CLERK Specimen Anatomical Collection Method Collection Time Receive d Time (Source) Location / / Volume Laterality Blood (Blood, 12/20/2021 11:34 12/20/2021 Venous) AM HOSPITAL WARD CLERK 11:40 AM HOSPITAL WARD CLERK Cheikh Gautam M.D. LAB BLOOD ADD-ON Performing Organization Address City/State/ZIP Code Phon e Number [facility] [address] [place] [address] [place] [address] System in [place] [address] Bacterial Culture, Aerobic + Susc, Urine (12/20/2021 11:26 AM HOSPITAL WARD CLERK) Patholo gist Method Time Signature Urine Culture No growth 12/21/2021 [place] after 1 day 8:40 AM HOSPITAL WARD CLERK of incubation. Specimen Anatomical Collection Method Collection Time Receive d Time (Source) Location / / Volume Laterality Urine (Urine, 12/20/2021 11:26 12/20/2021 2:19 Midstream) AM HOSPITAL WARD CLERK PM HOSPITAL WARD CLERK Comment: Specimen Source Site: Urine Cheikh Gautam M.D. LAB MICROBIOLOGY - GENERAL O RDERABLES Performing Organization Address City/State/ZIP Code Phon e Number [facility] [address] [place] [address] [place] [address] System in [place] [address] [place] [address] Urinalysis with Microscopic if Indicated (12/20/2021 11:26 AM HOSPITAL WARD CLERK) P athologist Signature Source Urine, 12/20/2021 [place] Urine, Clean 12:12 PM HOSPITAL WARD CLERK Catch Clarity Clear Clear 12/20/2021 [place] 12:12 PM HOSPITAL WARD CLERK Color Yellow 12/20/2021 [place] 12:12 PM HOSPITAL WARD CLERK Comment: ----REFERENCE VALUE---- Colorless Yellow Ronda Blood Negative Negative 12/20/2021 12:12 PM HOSPITAL WARD CLERK [place] Nitrite Negative Negative 12/20/2021 12:12 PM HOSPITAL WARD CLERK [place] Leukocyte Esterase Negative Negative 12/20/2021 12:[address] [place] Protein Negative mg/dL 12/20/2021 12:12 PM HOSPITAL WARD CLERK [place] Comment: ----REFERENCE VALUE---- Negative Trace Glucose Negative Negative mg/dL 12/20/2021 12:12 PM HOSPITAL WARD CLERK O FRANSICO Ketone Negative Negative mg/dL 12/20/2021 12:12 PM HOSPITAL WARD CLERK O FRANSICO Bilirubin Negative Negative 12/20/2021 12:12 PM HOSPITAL WARD CLERK [place] pH 6.0 5.0 - 8.0 12/20/2021 12:12 PM HOSPITAL WARD CLERK [place] Specific Anselmo 1.005 1.001 - 1.035 12/20/2021 12:12 PM HOSPITAL WARD CLERK [place] Urobilinogen 0.2 0.2 - 1.0 mg/dL 12/20/2021 12:[address] [place] Specimen Anatomical Collection Method Collection Time Receive d Time (Source) Location / / Volume Laterality Urine (Urine, 12/20/2021 11:26 12/20/2021 Clean Catch) AM HOSPITAL WARD CLERK 12:06 PM HOSPITAL WARD CLERK Cheikh Gautam M.D. LAB URINE ORDERABLES Performing Organization Address City/State/ZIP Code Phon e Number [facility]- [address] [place] [address] [place] [address] System in [place] [address] documented in this encounter Visit Diagnoses Diagnosis Encounter For Supervision Of Other Stella echols Unspecified Trimester (HCC) documented in this encounter Additional Health Concerns Assessment Noted Time PHQ-9 Depression Total Score: 4 12/20/2021 10:52 AM CS T documented as of this encounter Care Teams Fixer Supervisor Relationship Specialty Start Date End Date Ben Arce M.D. PCP - General Family Medicine 01/13/[address] [place] [phone] documented as of this encounter
--- OUTSIDE RECORDS SUMMARY | 2022-06-20 18:49 | XMS_ITS | Encounter Summary ---
:1990 Author Organization [facility] Address [address] [place] [address] Care Team Providers Name Role Phone Ben Arce M.D. Primary Care Provider Reason for Visit Reason Comments Vomiting Pt presents with nausea and vomiting that began last evening at 1700. Has persisted all night. Pt is 6 weeks . Encounter Details Date Type Department Care Team Description 12/09/2021 Emergency [place] [facility] Valerie Malone, Nause a And Vomiting (Primary Dx); Department M.D. Less Than 8 Weeks Gestation [address] [place] [phone] Social History Tobacco Use Types Packs/Day Years [...] you attend oriental orthodox or Never 2021 adventist services? Do you [...] at Date Recorded Female 12/02/2021 5:19 PM HEALTHCARE MARKETER documented as of this encounter Last Filed Vital Signs Vital Sign Reading Time Taken Comments Blood Pressure 126/87 12/09/2021 9:45 AM HEALTHCARE MARKETER Pulse 95 12/09/2021 10:00 AM HEALTHCARE MARKETER Temperature 37.2 ??C (99 ??F) 12/09/2021 10:00 AM HEALTHCARE MARKETER Respiratory Rate 14 12/09/2021 8:29 AM HEALTHCARE MARKETER Oxygen Saturation 99% 12/09/2021 10:00 AM HEALTHCARE MARKETER Inhaled Oxygen Concentration - - Weight 68.3 kg (150 lb 9.2 oz) 12/09/2021 8:31 AM HEALTHCARE MARKETER Height 155 cm (5' 1.02) 12/09/2021 8:31 AM HEALTHCARE MARKETER Body Mass Index 28.43 12/09/2021 8:31 AM HEALTHCARE MARKETER documented in this encounter Discharge Instructions Discharge InstructionsValerie Malone M.D. - 12/09/2021 9:29 AM CST If you are unable to keep yourself well hydrated at home, please feel free to return. THCARE MARKETER AttachmentsThe following attachments cannot be sent through Care Everywhere. Morning Sickness (Greek)documented in this encounter Medications at Time of [...] normal. ASSESSMENT/PLAN IMPRESSION AND PLAN Vomiting with utef-ah-yjjweaje dehydration during . I gave normal saline 1 L IV, [id number] mg IV, Zofran 4 mg IV. She [...] 8 Weeks Gestation Valerie Malone M.D. 12/09/21934 THCARE MARKETER documented in this encounter Plan of Treatment [...] 1,000 mL New Bag 12/09/2021 8:48 AM HEALTHCARE MARKETER 1,000 mL 1000 mL/hr 1,000 mL, intravenous, at 1,000 mL/hr, Administer over 1 Hours, Once, On Sun12/09/21 at 0836, For 1 dose ondansetron (PF) injection 4 mg (ZOFRAN) Given 12/09/2021 9:31 AM HEALTHCARE MARKETER 4 mg 4 mg, intravenous, Once, On Sun12/09/21 at 0921, For 1 dose pyridoxine (vitamin B6) injection 100 mg Given 12/09/2021 9:00 AM HEALTHCARE MARKETER 100 mg 100 mg, intravenous, Once, On Sun12/09/21 at 0836, For 1 dose sodium chloride 0.9 % injection 10 mL Given 12/09/2021 8:45 AM HEALTHCARE MARKETER 10 mL 10 mL, intravenous, As needed, [...] Recently Administered Medications Times are shown in HEALTHCARE MARKETER. Scheduled Medication Order 12/07/2021 12/08/2021 12/09/2021 NaCl [...] injection documented in this encounter Care Teams Floorworker Distributor Relationship Specialty Start Date End Date Ben Arce M.D. PCP - General Family Medicine 01/13/[address] [place] [phone] documented as of this encounter
--- OUTSIDE RECORDS SUMMARY | 2022-06-20 18:49 | XMS_ITS | Encounter Summary ---
:1990 Author Organization [facility] Address [address] [place] [address] Care Team Providers Name Role Phone Ben Arce M.D. Primary Care Provider Reason for Visit Reason Comments Nausea Vomiting During Auth/Cert Specialty Diagnoses / Procedures Referred By Contact Refer red To Contact Diagnoses . Procedures . Referral ID Status Reason Start Date Expiration Date Visits Requ ested Visits Authorized [id number] 1 1 Encounter Details Date Type Department Care Team Description 04/28/2022 Hospital Encounter [facility] Rylie Mcdowell Encounte r [facility] [place] Hennessy Supervision Of [facility], [place] [id number] [facility] Normal Floor [place], [place] Unspecified [address] [place] [phone] Trimester (HCC) [place], [place] [phone] (Work) [phone] Social History Tobacco Use Types Packs/Day Years [...] do you attend mormonism or Never 2021 jew services? Do you [...] at Date Recorded Female 12/02/2021 5:19 PM BOND MANAGER documented as of this encounter Last [...] stated she has a clinic appointment at [facility] on Sunday with her normal doctor. Education [...] 8.0 04/28/2022 11:36 AM CDT NPRG Specific [place] 1.015 1.001 - 1.035 04/28/2022 11:36 AM [...] Organization Address City/State/ZIP Code Phon e Number [place] [address] [place], [place] [address] [place] [address] Influenza A/B, SARS CoV-2, PCR, Rapid, Varies (04/28/2022 8:48 AM CDT) [facility] Method Time Signature Influenza A, Negative Negative 04/28/2022 NPRG PCR, Rapid, V 9:26 AM CDT Influenza B, Negative Negative 04/28/2022 NPRG PCR, Rapid, V 9:26 AM CDT SARS CoV-2, Undetected Undetected 04/28/2022 NPRG PCR, Rapid, V 9:26 AM CDT Comment: ----ADDITIONAL INFORMATION---- This RT-PCR test was performed using the Carissa SARS-CoV-2 and Influenza A/B Reagent assay from [employer], which has received Emergency Use Authori zation(EUA) by the U.S. Food and Drug Administration . Fact sheets for this Emergency Use Autho rization (EUA) assay can be found at the following link s: For Healthcare Providers: https://www.fda.gov/media/054935/downloa d For Patients: https://www.fda.gov/media/009194/downloa d Infl A/B, SARS CoV-2, PCR, Source Swab, Nasopharynx 04/28/2022 9:02 AM CDT NPRG Specimen Anatomical Collection Method Collection Time Receive d Time (Source) Location / / Volume Laterality Varies 04/28/2022 8:48 AM 9:02 CDT AM CDT Rylie Mcdowell M.D. LAB MICROBIOLOGY - GENERAL O RDERABLES Performing Organization Address City/State/ZIP Code Phon e Number [address] [address] [place] [address] documented in this encounter Visit Diagnoses [...] documented as of this encounter Care Teams Fine Grade Operator Relationship Specialty Start Date End Date Ben Arce M.D. PCP - General Family Medicine 01/13/[address] [place] [phone] documented as of this encounter
--- OUTSIDE RECORDS SUMMARY | 2022-06-20 18:49 | XMS_ITS | Encounter Summary ---
:1990 Author Organization [facility] Address [address] [place] [address] Care Team Providers Name Role Phone Ben Arce M.D. Primary Care Provider Reason for Visit Reason Comments Nurse Visit NOB ED/INTAKE APPT Encounter Details Date Type Department Care Team Description 12/08/2021 Virtual Visit Department of Terrence Swenson M.D. [address] [address] Encounter For Supervision Of Other Stella l Unspecified Trimester (Primary Dx); Obstetrics and Autumn Patel R.N. [address] [address] Examination Test With Positive Result Gynecology in [place], [place] [address] [address] Social History Tobacco Use Types [...] do you attend mandaen or Never 2021 anabaptism services? Do you [...] at Date Recorded Female 12/02/2021 5:19 PM SERVOMECHANISM ASSEMBLER documented as of this encounter Patient Instructions [...] Provided Today: Beginnings: , , and [facility] brochure-[facility] OMECHANISM ASSEMBLER documented in this encounter Progress Notes Autumn Patel R.N. - 12/08/2021 1:30 PM CST Consult conducted via real-time audio/video technology by Autumn Patel R.N. in [facility] to the patient in Patient's Home. episode opened-please see history for details. Conceived with Nexplanon in place-this was removed after positive Beta Hcg. 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 Denies concerns. Encouraged to call with questions or concerns. OMECHANISM ASSEMBLER documented in this encounter Plan of Treatment Not on filedocumented as of this encounter Results Hepatitis C Virus Antibody Screen (12/20/2021 11:34 AM SERVOMECHANISM ASSEMBLER) athologist Signature HCV Ab Scrn Negative Negative 12/21/2021 [facility] , S 8:10 AM SERVOMECHANISM ASSEMBLER Comment: Mrpslv-vo-wjwsue ratio is <1.00 . Specimen Anatomical Collection Method Collection Time Receive d Time (Source) Location / / Volume Laterality Blood (Blood, 12/20/2021 11:34 12/21/2021 6:40 Venous) AM SERVOMECHANISM ASSEMBLER AM SERVOMECHANISM ASSEMBLER Cheikh Gautam M.D. LAB MICROBIOLOGY - BLOOD ORD ERABLES Performing Organization Address City/State/ZIP Code Phon e Number [facility] [address] [place] [phone] [facility] [place] [address] Laboratory Medicine and Pathology [address] [place] Syphilis Total Ab w/ Reflex, Serum (12/20/2021 11:34 AM SERVOMECHANISM ASSEMBLER) [facility] Method Time Signature Syphilis Nonreactive Nonreactive 12/21/2021 [facility] Total Ab w/ 11:40 AM SERVOMECHANISM ASSEMBLER Reflex Comment: No serologic evidence of infection with T. pallidum (syphilis). ??Repeat testing may be cons idered in patients with suspected acute or primary syphilis in 2-4 weeks. For additional information on interpreta tion of the syphilis reverse algorithm and resul ts, see: [email or web address] df Specimen Anatomical Collection Method Collection Time Receive d Time (Source) Location / / Volume Laterality Blood (Blood, 12/20/2021 11:34 12/20/2021 6:27 Venous) AM SERVOMECHANISM ASSEMBLER PM SERVOMECHANISM ASSEMBLER Cheikh Gautam M.D. LAB BLOOD ADD-ON Performing Organization Address City/[facility] Phon e Number [facility]- [address] [place] [address] [phone] [place] [address] System in [address] Rubella Antibodies, IgG (12/20/2021 11:34 AM SERVOMECHANISM ASSEMBLER) athologist Signature Rubella Ab, Positive 12/21/2021 [facility] IgG, S 11:40 AM SERVOMECHANISM ASSEMBLER Comment: Results suggest response to immunization or prior exposure to the virus. ----REFERENCE VALUE---- Vaccinated: Positive (>=1.0 AI) Unvaccinated: Negative (<=0.7 AI) Rubella IgG Antibody Index 2.6 12/21/2021 11 :40 AM SERVOMECHANISM ASSEMBLER [facility] Specimen Anatomical Collection Method Collection Time Receive d Time (Source) Location / / Volume Laterality Blood (Blood, 12/20/2021 11:34 12/20/2021 6:27 Venous) AM SERVOMECHANISM ASSEMBLER PM SERVOMECHANISM ASSEMBLER Cheikh Gautam M.D. LAB MICROBIOLOGY - BLOOD ORD ERABLES Performing Organization Address City/State/ZIP Code Phon e Number [facility]- [address] [place] [phone] [place] [address] System in [address] HIV-1/-2 Ag and Ab Scrn, Plasma (12/20/2021 11:34 AM SERVOMECHANISM ASSEMBLER) P athologist Signature HIV Ag/Ab Negative Negative 12/21/2021 [facility] Scrn, 11:40 AM SERVOMECHANISM ASSEMBLER P Comment: Negative result does not rule out HIV in fection. If exposure to HIV infection occurred <14 d ays ago, contact the laboratory to request additi on of HIV-1 RNA detection / quantification test. HIV-1 p24 Ag Scrn, P Negative Negative 12/21/2021 11:40 AM SERVOMECHANISM ASSEMBLER CA Comment: Negative result does not rule out HIV in fection. If exposure to HIV infection occurred <14 d ays ago, contact the laboratory to request additi on of HIV-1 RNA detection / quantification test. HIV-1 Ab Scrn, P Negative Negative 12/21/2021 11: 40 AM SERVOMECHANISM ASSEMBLER CA Comment: Negative result does not rule out HIV in fection. If exposure to HIV infection occurred <14 d ays ago, contact the laboratory to request additi on of HIV-1 RNA detection / quantification test. HIV-2 Ab Scrn, P Negative Negative 12/21/2021 11: 40 AM SERVOMECHANISM ASSEMBLER [facility] Comment: Negative result does not rule out HIV in fection. If exposure to HIV infection occurred <14 d ays ago, contact the laboratory to request additi on of HIV-1 RNA detection / quantification test. Specimen Anatomical Collection Method Collection Time Receive d Time (Source) Location / / Volume Laterality Blood (Blood, 12/20/2021 11:34 12/20/2021 6:27 Venous) AM SERVOMECHANISM ASSEMBLER PM SERVOMECHANISM ASSEMBLER Cheikh Gautam M.D. LAB MICROBIOLOGY - BLOOD ORD ERAKAMALJIT Performing Organization Address City/State/ZIP Code Phon e Number [facility]- [address] [place] [address], [place] [address] [address] [place] [address] System [address] HBs Antigen , Serum (12/20/2021 11:34 AM SERVOMECHANISM ASSEMBLER) [facility] Method Time Signature HBs Antigen Non reactive Non reactive 12/20/2021 [facility] , S 4:50 PM SERVOMECHANISM ASSEMBLER Specimen Anatomical Collection Method Collection Time Receive d Time (Source) Location / / Volume Laterality Blood (Blood, 12/20/2021 11:34 12/20/2021 3:49 Venous) AM SERVOMECHANISM ASSEMBLER PM SERVOMECHANISM ASSEMBLER Cheikh Gautam M.D. LAB MICROBIOLOGY - BLOOD ORD ERAKAMALJIT Performing Organization Address City/State/ZIP Code Phon e Number [facility]- [address] [place] [address] [facility] [place], [place] [id number] [place] [address] (ABNORMAL) CBC without Differential (12/20/2021 11:34 AM SERVOMECHANISM ASSEMBLER) [facility] Method Time Signature Hemoglobin 14.1 11.6 - 12/20/2021 [place] 15.0 g/dL 11:44 AM SERVOMECHANISM ASSEMBLER Hematocrit 41.0 35.5 - 12/20/2021 [place] 44.9 % 11:44 AM SERVOMECHANISM ASSEMBLER Erythrocytes 4.91 3.92 - 12/20/2021 [place] 5.13 11:44 AM SERVOMECHANISM ASSEMBLER x10(12)/L MCV 83.5 78.2 - 12/20/2021 [place] 97.9 fL 11:44 AM SERVOMECHANISM ASSEMBLER RBC Distrib Width 11.7 (L) 12.2 - 12/20/2021 [place] 16.1 % 11:44 AM SERVOMECHANISM ASSEMBLER Platelet Count 360 157 - 371 12/20/2021 [place] x10(9)/L 11:44 AM SERVOMECHANISM ASSEMBLER Leukocytes 11.1 (H) 3.4 - 9.6 12/20/2021 [place] x10(9)/L 11:44 AM SERVOMECHANISM ASSEMBLER Specimen Anatomical Collection Method Collection Time Receive d Time (Source) Location / / Volume Laterality Blood (Blood, 12/20/2021 11:34 12/20/2021 Venous) AM SERVOMECHANISM ASSEMBLER 11:40 AM SERVOMECHANISM ASSEMBLER Cheikh Gautam M.D. LAB BLOOD ADD-ON Performing Organization Address City/State/ZIP Code Phon e Number [facility]- [address] [place] [address] [place] [address] System in [place] [address] Antibody Screen, RBC (with reflex Antibody ID) (12/20/2021 11:34 AM SERVOMECHANISM ASSEMBLER) P athologist Signature Antibody Screen NEG 12/20/2021 [facility] 5:16 PM SERVOMECHANISM ASSEMBLER Specimen Anatomical Collection Method Collection Time Receive d Time (Source) Location / / Volume Laterality Blood (Blood, 12/20/2021 11:34 12/20/2021 3:49 Venous) AM SERVOMECHANISM ASSEMBLER PM SERVOMECHANISM ASSEMBLER Cheikh Gautam M.D. LAB BLOOD BANK TEST ORDERABL ES Performing Organization Address City/[facility]/ZIP Code Phon e Number [facility]- [address] [place] [address] [facility] - [address] ABORh, RBC (12/20/2021 11:34 AM SERVOMECHANISM ASSEMBLER) P athologist Signature ABO Group O 12/20/2021 5:16 [place] PM SERVOMECHANISM ASSEMBLER Rh Type POS 12/20/2021 5:16 [place] PM SERVOMECHANISM ASSEMBLER Specimen Anatomical Collection Method Collection Time Receive d Time (Source) Location / / Volume Laterality Blood (Blood, 12/20/2021 11:34 12/20/2021 3:51 Venous) AM SERVOMECHANISM ASSEMBLER PM SERVOMECHANISM ASSEMBLER Cheikh Gautam M.D. LAB BLOOD BANK TEST ORDERABL ES Performing Organization Address City/State/ZIP Code Phon e Number [facility]- [address] [place] [address] [facility] - [address] Bacterial Culture, Aerobic + Susc, Urine (12/20/2021 11:26 AM SERVOMECHANISM ASSEMBLER) [facility] Method Time Signature Urine Culture No growth 12/21/2021 [facility] after 1 day 8:40 AM SERVOMECHANISM ASSEMBLER of incubation. Specimen Anatomical Collection Method Collection Time Receive d Time (Source) Location / / Volume Laterality Urine (Urine, 12/20/2021 11:26 12/20/2021 2:19 Midstream) AM SERVOMECHANISM ASSEMBLER PM SERVOMECHANISM ASSEMBLER Comment: Specimen Source Site: Urine Cheikh Gautam M.D. LAB MICROBIOLOGY - GENERAL O RDERABLES Performing Organization Address City/State/ZIP Code Phon e Number [facility]- [address] [place] [phone] [place] [address] [place] [address] System [address] Urinalysis with Microscopic if Indicated (12/20/2021 11:26 AM SERVOMECHANISM ASSEMBLER) P athologist Signature Source Urine, 12/20/2021 [place] Urine, Clean 12:12 PM SERVOMECHANISM ASSEMBLER Catch Clarity Clear Clear 12/20/2021 [place] 12:12 PM SERVOMECHANISM ASSEMBLER Color Yellow 12/20/2021 [place] 12:12 PM SERVOMECHANISM ASSEMBLER Comment: ----REFERENCE VALUE---- Colorless Yellow Ronda Blood Negative Negative 12/20/2021 12:12 PM SERVOMECHANISM ASSEMBLER [place] Nitrite Negative Negative 12/20/2021 12:12 PM SERVOMECHANISM ASSEMBLER [facility] Leukocyte Esterase Negative Negative 12/20/2021 12:[address] [facility] Protein Negative mg/dL 12/20/2021 12:12 PM SERVOMECHANISM ASSEMBLER [facility] Comment: ----REFERENCE VALUE---- Negative Trace Glucose Negative Negative mg/dL 12/20/2021 12:12 PM SERVOMECHANISM ASSEMBLER O FRANSICO Ketone Negative Negative mg/dL 12/20/2021 12:12 PM SERVOMECHANISM ASSEMBLER O FRANSICO Bilirubin Negative Negative 12/20/2021 12:12 PM SERVOMECHANISM ASSEMBLER [facility] pH 6.0 5.0 - 8.0 12/20/2021 12:12 PM SERVOMECHANISM ASSEMBLER [place] Specific [place] 1.005 1.001 - 1.035 12/20/2021 12:12 PM SERVOMECHANISM ASSEMBLER [facility] Urobilinogen 0.2 0.2 - 1.0 mg/dL 12/20/2021 12:[address] [facility] Specimen Anatomical Collection Method Collection Time Receive d Time (Source) Location / / Volume Laterality Urine (Urine, 12/20/2021 11:26 12/20/2021 Clean Catch) AM SERVOMECHANISM ASSEMBLER 12:06 PM SERVOMECHANISM ASSEMBLER Cheikh Gautam M.D. LAB URINE ORDERABLES Performing Organization Address City/State/ZIP Code Phon e Number [facility]- [address] [place] [address] [place] [address] System in [place] [address] documented in this encounter Visit Diagnoses Diagnosis Encounter For Supervision Of Other Stella l Unspecified Trimester (HCC) - Primary Examination Test With Positive Result (HCC) documented in this encounter Care Teams Communications Writer Relationship Specialty Start Date End Date Ben Arce M.D. PCP - General Family Medicine 01/13/[address] [place] [address] documented as of this encounter
--- OUTSIDE RECORDS SUMMARY | 2022-06-20 18:49 | XMS_ITS | Encounter Summary ---
:1990 Author Organization [facility] Address [address] [place] [address] Care Team Providers Name Role Phone Ben Arce M.D. Primary Care Provider Reason for Visit Reason Comments Hand Injury Encounter Details Date Type Department Care Team Description 02/11/2022 Emergency [facility] Sigrid Forbes ontusion Hand Initial Department DMinoo Right (Primary Dx) [address] [place] [phone] [phone] (Wo rk) Social History Tobacco Use Types [...] you attend roman catholic or Never 2021 cheondoism services? Do you [...] at Date Recorded Female 12/02/2021 5:19 PM PSYCHOLOGIST COUNSELING documented as of this encounter Last Filed [...] clinic by calling the appointment center at [phone]. Thank you for choosing [facility] for your care. It was a pleasure taking care of you today in our Emergency Department. AttachmentsThe following attachments cannot be sent through Care Everywhere.Hand Contusion [id number] (Amharic)documented in this encounter Medications at Time of [...] Forbes M.D. - 02/11/2022 9:44 PM CDT [facility] EMERGENCY DEPARTMENT ENCOUNTER Patient Name: Lulu Mata PCP: Ben Arce M.D. SUBJECTIVE CHIEF COMPLAINT/REASON FOR VISIT Hand Injury HISTORY OF PRESENT ILLNESS Lulu Mata is a 31 y.o. female presenting with right hand pain. She was at the [facility] today when her hand was shut into [...] documented as of this encounter Care Teams Indoor Plant Technician Relationship Specialty Start Date End Date Ben Arce M.D. PCP - General Family Medicine 01/13/[address] [place] [phone] documented as of this encounter
--- OUTSIDE RECORDS SUMMARY | 2022-06-20 18:49 | XMS_ITS | Encounter Summary ---
:1990 Author Organization [facility] Address [address] [place] [address] Care Team Providers Name Role Phone Ben Arce M.D. Primary Care Provider Reason for Visit Reason Comments Routine Visit 16 2/7 wk ob check pelvic/lo wer back pain 7/10 pain scale, needs referral to chiropract or Outpatient (Routine) - Authorized Specialty Diagnoses / Procedures Referred By Contact Refer red To Contact Obstetrics and Cheikh Gautam [facility] william Gynecology M.DMaribell Referral ID Status Reason Start Date Expiration Date Visits V isits Requested Authorized [id number] Authorized 12/20/2021 12/20/2022 15 15 Encounter Details Date Type Department Care Team Description 03/01/2022 Routine Department of Terrence Swenson Pregnan cy Examination Test With Positive Result (HCC) (Primary Dx); Obstetrics and M.D. Encounter For Supervision Of Normal Preg roberta Unspecified Trimester (HCC) Gynecology in [address] [place], [place] [phone] [place], [place] [phone] (Work) [phone] Social History Tobacco Use Types Packs/Day Years [...] do you attend nondenominational or Never 2021 sabianism services? Do you belong to any clubs or No 11/20/2021 organizations such as nondenominational groups, unions, fraReniac or athletic groups, or school groups? How [...] at Date Recorded Female 12/02/2021 5:19 PM STEAM TUNNEL FEEDER documented as of this encounter Last Filed [...] and Family: Twice a week ??? Attends Sabianism Services: Never ??? Active Member of Clubs [...] documented as of this encounter Care Teams Orthotics Assistant Relationship Specialty Start Date End Date Ben Arce M.D. PCP - General Family Medicine 01/13/[address] [place] [address] documented as of this encounter
--- OUTSIDE RECORDS SUMMARY | 2022-06-20 18:49 | XMS_ITS | Encounter Summary ---
:1990 Author Organization [facility] Address [address] [place] [address] Care Team Providers Name Role Phone Ben Arce M.D. Primary Care Provider Reason for Visit Reason Comments Vomiting During Auth/Cert Specialty Diagnoses / Procedures Referred By Contact Refer red To Contact Diagnoses Procedures Referral ID Status Reason Start Date Expiration Date Visits Requ ested Visits Authorized [id number] 1 1 Encounter Details Date Type Department Care Team Description 06/12/2022 [facility], [address] [place], [place] [address] [place] [address] [place], [place] [phone] (Wo rk) [address] [phone] Social History Tobacco Use Types Packs/Day Years [...] do you attend sikhism or Never 2021 rastafarian services? Do you [...] at Date Recorded Female 12/02/2021 5:19 PM INNOVATION ANALYST documented as of this encounter Last Filed [...] appointment on Sunday with her PCP in [place]. Education provided on staying hydrated and how [...] Organization Address City/State/ZIP Code Phon e Number [facility]- [address] [place], [place] [address] [facility] [place] [address] [facility] [address] documented in this encounter Visit Diagnoses Not on filedocumented in this encounter Additional Health Concerns Assessment Noted Time PHQ-9 Depression Total Score: 4 12/20/2021 10:52 AM CS T documented as of this encounter Care Teams Pairer Substandard Relationship Specialty Start Date End Date Ben Arce M.D. PCP - General Family Medicine 01/13/[address] [place] [phone] documented as of this encounter
--- OUTSIDE RECORDS SUMMARY | 2022-06-20 18:49 | XMS_ITS | Encounter Summary ---
:1990 Author Organization [facility] Address [address] [place] [address] Care Team Providers Name Role Phone Ben Arce M.D. Primary Care Provider Reason for Referral Outpatient (Routine) - Authorized Specialty Diagnoses / Procedures Referred By Contact Refer red To Contact Obstetrics and Cheikh Gautam [facility] Gynecology Minoo Referral ID Status Reason Start Date Expiration Date Visits V isits Requested Authorized [id number] Authorized 12/20/2021 12/20/2022 15 15 Scheduling Instructions Every 4 weeks until 28 week gestation. Then every 2 weeks until 36 week gestati on. Then every 1 week until 40+ week gestati on. UARD LOOM CARD CHANGER Reason for Visit Reason Comments Initial Visit 7w 3d Outpatient (Routine) - Closed Specialty Diagnoses / Procedures Referred By Contact Refer red To Contact Obstetrics and Diagnoses Examination Test With Positive Result (HCC) Terrence Swenson M.D. [facility] Gynecology [address] [place] [address] Referral ID Status Reason Start Date Expiration Date Visits Requ ested Visits Authorized [id number] Closed 12/01/2021 12/01/2022 1 1 Encounter Details Date Type Department Care Team Description 12/20/2021 Initial Department of Obstetrics [place] in [place], [place]: 6w1d and Gynecology in M.DMaribell [place], [place] [address] [place] [phone] Social History Tobacco Use Types Packs/Day [...] do you attend confucianism or Never 2021 presybeterian services? Do you [...] at Date Recorded Female 12/02/2021 5:19 PM JACQUARD LOOM CARD CHANGER documented as of this encounter Last Filed Vital Signs Vital Sign Reading Time Taken Comments Blood Pressure 136/80 12/20/2021 10:52 AM JACQUARD LOOM CARD CHANGER Pulse - - Temperature - - Respiratory Rate - - Oxygen Saturation - - Inhaled Oxygen Concentration - - Weight 69.2 kg (152 lb 8.9 oz) 12/20/2021 10:52 AM JACQUARD LOOM CARD CHANGER Height - - Body Mass Index 28.8 12/09/2021 8:31 AM JACQUARD LOOM CARD CHANGER documented in this encounter Progress Notes Cheikh [...] and Family: Twice a week ??? Attends Scientology Services: Never ??? Active Member of Clubs [...] Vaccinations: COVID complete but needs booster/Flu declines Dye Beck Reel Operator: Pap NIL w/ neg HPV 11/2021 Aneuploidy screening/Carrier Screening: declines Preeclampsia prevention: aspirin to start at 12 weeks FAS: 28 week labs: TDAP /Rhogam GBS Growth Ultrasounds: surveillance: Presentation (36 weeks): Del planning: PPBC: Problems: 1. Hx preeclampsia: aspirin to start at 12 weeks. Need to get baseline preE labs 2. Hx GDM: Early A1C ordered UARD LOOM CARD CHANGER documented in this encounter Plan of Treatment [...] Diagnoses Obstetrics and Outpatient Referral Routine 15 [facility] Gynecology office starting 0 12/20/2021 visit (clinic) [...] US PROCEDURES Hemoglobin A1c (12/20/2021 11:34 AM JACQUARD LOOM CARD CHANGER) P athologist Signature Hemoglobin A1c, 5.2 4.2 - 5.6 12/20/2021 [place] B % 12:27 PM JACQUARD LOOM CARD CHANGER Specimen Anatomical Collection Method Collection Time Receive d Time (Source) Location / / Volume Laterality Blood (Blood, 12/20/2021 11:34 12/20/2021 Venous) AM JACQUARD LOOM CARD CHANGER 11:40 AM JACQUARD LOOM CARD CHANGER Cheikh Gautam M.D. LAB BLOOD ADD-ON Performing Organization Address City/State/ZIP Code Phon e Number [facility]- [address] [place] [address] [facility] [address] System in [place] [address] documented in this [...] documented as of this encounter Care Teams Curb Worker Relationship Specialty Start Date End Date Ben Arce M.D. PCP - General Family Medicine 01/13/[address] [place] [phone] documented as of this encounter
--- OUTSIDE RECORDS SUMMARY | 2022-06-20 18:49 | XMS_ITS | Encounter Summary ---
:1990 Author Organization [facility] Address [address] [place] [address] Care Team Providers Name Role Phone Ben Arce M.D. Primary Care Provider Encounter Details Date Type Department Care Team Description 03/31/2022 Hospital Encounter Department of Cheikh Gautam Laboratory Medicine Minoo Garcia ([facility]) in [place], [place] [address] [place] [phone] Social History Tobacco Use Types Packs/Day Years [...] do you attend scientology or Never 2021 baptist services? Do you [...] at Date Recorded Female 12/02/2021 5:19 PM SEWER HEAD documented as of this encounter Medications at [...] for this RATIO, RANDOM, URINE PM CDT ([facility]) proc edure are in the results [...] City/[facility]/ZIP Code Phon e Number [place] [address] [place], [place] [address] [address] [facility] [place] [place] [address] ALT (Alanine Aminotransferase) (03/31/2022 5:31 [...] City/[facility]/ZIP Code Phon e Number [place] [address] [place], [place] [address] [facility] [place] [address] AST (Aspartate Aminotransferase) (03/31/2022 5:31 [...] City/[facility]/ZIP Code Phon e Number [address] [address] [facility] [place] [address] (ABNORMAL) Creatinine with Estimated GFR (03/31/2022 5:31 PM CDT) Analysis Performed At Patho logist Time Signature Creatinine 0.58 (L) 0.59 - 03/31/2022 NPRG 1.04 mg/dL 5:59 PM CDT eGFR-Black/Afri >90 >=60 03/31/2022 NPRG can Polish mL/min/BSA 5:59 PM CDT Comment: ----ADDITIONAL INFORMATION---- [...] Address City/State/ZIP Code Phon e Number [facility]- [address] [place], [place] [address] [place] [address] [place] [address] [facility] [address] [place] documented in this encounter Visit Diagnoses Diagnosis High Risk (HCC) documented in this encounter Additional Health Concerns Assessment Noted Time PHQ-9 Depression Total Score: 4 12/20/2021 10:52 AM CS T documented as of this encounter Care Teams Director Data Management Relationship Specialty Start Date End Date Ben Arce M.D. PCP - General Family Medicine 01/13/[address] [place] [phone] documented as of this encounter
--- OUTSIDE RECORDS SUMMARY | 2022-06-20 18:49 | XMS_ITS | Encounter Summary ---
:1990 Author Organization [facility] Address [address] [place] [address] Care Team Providers Name Role Phone Ben Arce M.D. Primary Care Provider Encounter Details Date Type Department Care Team Description 03/27/2022 Ancillary Procedure Department of Cheikh Gautam For Obstetrics and Minoo Garcia Supervision O f Other Gynecology in Normal [place], [place] Unspecified [address] Trimester (HCC) [place] [address] Social History Tobacco Use Types [...] do you attend mormonism or Never 2021 denominational services? Do you [...] at Date Recorded Female 12/02/2021 5:19 PM GATE MORTISER OPERATOR documented as of this encounter Plan [...] documented as of this encounter Care Teams Pneumatic Systems Operator Relationship Specialty Start Date End Date Ben Arce M.D. PCP - General Family Medicine 01/13/21 [address] [facility] [place] [address] documented as of this encounter
--- OUTSIDE RECORDS SUMMARY | 2022-06-20 18:49 | XMS_ITS | Encounter Summary ---
:1990 Author Organization [facility] Address [address] [place] [address] Care Team Providers Name Role Phone Ben Arce M.D. Primary Care Provider Encounter Details Date Type Department Care Team Description 12/20/2021 Silent Schedule Department of Terrence Swenson, Pregnanc y Examination Obstetrics and M.D. Test With Positive Gynecology in [address] [place], [place] [address] [address] [place], [place] [phone] [address] (Work) [phone] Social History Tobacco Use Types Packs/Day Years [...] do you attend jewish or Never 2021 jehovah's witness services? Do [...] Date Recorded Female 12/02/2021 5:19 PM SEWER AND CUTTER FINGER BUFF MATERIAL documented as of this encounter Plan of Treatment Not on filedocumented as of this encounter Procedures Procedure Name Priority Date/Time Associated Comments Diagnosis US OB FIRST RAD - Routine 12/20/2021 10:50 Results fo r this TRIMESTER (most inpatients AM SEWER AND CUTTER FINGER BUFF MATERIAL Examination Test procedu re are in and all With Positive the results outpatients) Result section. documented in this encounter Results US OB First Trimester (12/20/2021 10:50 AM SEWER AND CUTTER FINGER BUFF MATERIAL) Anatomical Region Laterality Modality Body, Ultrasound OB RST LOS, Ultrasound ARZ LOS N/A Ultrasound Specimen (Source) Anatomical Collection Method Collection Time Re ceived Time Location / / Volume Laterality 12/20/2021 12:31 PM SEWER AND CUTTER FINGER BUFF MATERIAL Impressions 12/20/2021 12:34 PM SEWER AND CUTTER FINGER BUFF MATERIAL Single, viable, intrauterine gestation w ith CARLOS of August 14, 2022 (not consistent with menstrual dating). Narrative 12/20/2021 12:34 PM SEWER AND CUTTER FINGER BUFF MATERIAL EXAM: US OB FIRST TRIMESTER COMPARISON: None Physician: Dr. Swenson FINDINGS: Gestational age and CARLOS by LMP or OB/EHR assignment: 7 w 3 d, CARLOS: 08/05/2022 INTRAUTERINE Pole: Normal, Red Bud-Rump Length: 0 .50 cm Gestational Sac: Normal [...] 3 d, CARLOS: 08/05/2022 INTRAUTERINE Pole: Normal, Red Bud-Rump Length: 0 .50 cm Gestational Sac: Normal [...] documented as of this encounter Care Teams Gourmet Coffee Attendant Relationship Specialty Start Date End Date Ben Arce M.D. PCP - General Family Medicine 01/13/21 [address] [place] [address] documented as of this encounter
--- OUTSIDE RECORDS SUMMARY | 2022-06-20 18:49 | XMS_ITS | Encounter Summary ---
:1990 Author Organization [facility] Address [address] [place] [address] Care Team Providers Name Role Phone Ben Arce M.D. Primary Care Provider Encounter Details Date Type Department Care Team Description 02/01/2022 Hospital Encounter Department of Terrence Swenson High Risk Laboratory Medicine MGonzalez in [address] [address] [place], [place] [phone] [address] (Work) [phone] Social History Tobacco Use Types Packs/Day Years [...] you attend oriental orthodox or Never 2021 mosque services? Do you [...] at Date Recorded Female 12/02/2021 5:19 PM ZIGZAGGER documented as of this encounter Medications at [...] Name Priority Date/Time Associated Diagnosis Comme nts [id number] Routine 02/01/2022 9:52 AM High Risk Re sults for this PLUS-SENT OUT LAB CDT (HCC) procedure are in the results section. documented in this encounter Results [id number] Plus-Sent Out Lab (02/01/2022 9:52 AM CDT) [...] Organization Address City/State/ZIP Code Phon e Number [facility] [address] [place] [address] [employer] [facility] [employer] [address] [employer] [address] documented in this encounter Visit Diagnoses Diagnosis High Risk (HCC) documented in this encounter Additional Health Concerns Assessment Noted Time PHQ-9 Depression Total Score: 4 12/20/2021 10:52 AM CS T documented as of this encounter Care Teams Business Intelligence Etl Developer Relationship Specialty Start Date End Date Ben Arce M.D. PCP - General Family Medicine 01/13/[address] [place] [address] documented as of this encounter
--- OUTSIDE RECORDS SUMMARY | 2022-06-20 18:49 | XMS_ITS | Encounter Summary ---
:1990 Author Organization [facility] Address [address] [place] [address] Care Team Providers Name Role Phone Ben Arce M.D. Primary Care Provider Reason for Visit Reason Comments Routine Visit Patient seen in L&D yesterda y for decreased movement and spotting Outpatient (Routine) - Authorized Specialty Diagnoses / Procedures Referred By Contact Refer red To Contact Obstetrics and Cheikh Gautam [facility] Gynecology M.DMaribell Referral ID Status Reason Start Date Expiration Date Visits V isits Requested Authorized [id number] Authorized 12/20/2021 12/20/2022 15 15 Encounter Details Date Type Department Care Team Description 04/18/2022 Routine Department of Rylie Mcdowell, 23 Weeks Gestation Obstetrics and M.D. ([facility]) Gynecology in [address] (Primary Dx) [place] [address] [address] [facility] [address] [place], [place] [phone] [address] (Work) [phone] Social History Tobacco Use Types Packs/Day Years [...] or relatives? How often do you attend congregation or Never 2021 yazidi services? Do you belong to any clubs or No 11/20/2021 organizations such as congregation groups, unions, fraternal or athletic groups, or [...] at Date Recorded Female 12/02/2021 5:19 PM STAGE SET DESIGNER documented as of this encounter Last Filed [...] documented as of this encounter Care Teams Winter Sports Manager Relationship Specialty Start Date End Date Ben Arce M.D. PCP - General Family Medicine 01/13/[address] [facility] [address] documented as of this encounter
--- OUTSIDE RECORDS SUMMARY | 2022-06-20 18:49 | XMS_ITS | Encounter Summary ---
:1990 Author Organization [facility] Address [address] [place] [address] Care Team Providers Name Role Phone Ben [...] Expiration Date Visits Requ ested Visits Authorized [id number] 1 1 Encounter Details Date Type Department Care Team Description 04/17/2022 Hospital Encounter [facility] Rylie Mcdowell, 23 Weeks Gestation [facility], [place] [address] [address] [place], [place] [phone] [address] (Work) [phone] Social History Tobacco Use Types Packs/Day Years [...] do you attend anglican or Never 2021 cheondoism services? Do you [...] at Date Recorded Female 12/02/2021 5:19 PM RUSH SEATER documented as of this encounter Last Filed [...] Category I tracing. No UTC's traced via [place]. RN palpated during one episode ofuterine cramping, [...] documented as of this encounter Care Teams Dog Races Manager Relationship Specialty Start Date End Date Ben Arce M.D. PCP - General Family Medicine 01/13/[address] [place] [address] documented as of this encounter
--- OUTSIDE RECORDS SUMMARY | 2022-06-20 18:49 | XMS_ITS | Encounter Summary ---
:1990 Author Organization [facility] Address [address] [place] [address] Care Team Providers Name Role Phone Ben Arce M.D. Primary Care Provider Encounter Details Date Type Department Care Team Description 02/28/2022 Orders Only Department of Obstetrics and Gau Terrence zamarripa M.D. Gynecology in [address] [address] [place] [address] [phone] Social History Tobacco Use Types Packs/Day Years [...] do you attend synagogue or Never 2021 roman catholic services? Do [...] at Date Recorded Female 12/02/2021 5:19 PM ECD documented as of this encounter Plan of Treatment Not on filedocumented as of this encounter Visit Diagnoses Not on filedocumented in this encounter Additional Health Concerns Assessment Noted Time PHQ-9 Depression Total Score: 4 12/20/2021 10:52 AM CS T documented as of this encounter Care Teams Manager Summer Relationship Specialty Start Date End Date Ben Arce M.D. PCP - General Family Medicine 01/13/[address] [facility] [place] [phone] documented as of this encounter
--- OUTSIDE RECORDS SUMMARY | 2022-06-20 18:49 | XMS_ITS | Encounter Summary ---
:[address] [facility] Address [address] [place] [address] Care Team Providers Name Role Phone Ben Arce M.D. Primary Care Provider Reason for Visit Reason Comments Routine Visit 20weeks Outpatient (Routine) - Authorized Specialty Diagnoses / Procedures Referred By Contact Refer red To Contact Obstetrics and Cheikh Gautam [facility] william Gynecology Minoo Referral ID Status Reason Start Date Expiration Date Visits V isits Requested Authorized [id number] Authorized 12/20/2021 12/20/2022 15 15 Encounter Details Date Type Department Care Team Description 03/27/2022 Routine Department of Cheikh Gautam k (HCC) (Primary Dx); Obstetrics and Minoo Garcia Encounter For Supervision Of Normal Unspecified Trimester (HCC) Gynecology in [place], [place] [address] [place] [address] Social History Tobacco Use Types Packs/Day Years [...] do you attend religious or Never 2021 muslim services? Do you [...] Date Recorded Female 12/02/2021 5:19 PM PRODUCT DEVELOPMENT CARPENTER documented as of this encounter Last Filed [...] -Gonorhrea/chlamydia urine today -Patient is transferring to [place] because it is closer -Problem list updated [...] Vaccinations: COVID complete but needs booster/Flu declines Mds Nurse: Pap NIL w/ neg HPV 11/2021 Aneuploidy [...] she told me she is transferring to [place] because it is closer. documented in this encounter Plan of Treatment Not on filedocumented as of this encounter Procedures Procedure Name Priority Date/Time Associated Diagnosis Comme nts CHLAMYDIA/GONORRHOE Routine 03/27/2022 10:42 AM High Risk Preg roberta Results for this AE AMPLIFIED RNA CDT ([facility]) procedure a re in the [...] M.D. LAB URINE ORDERABLES Performing Organization Address City/[facility]/ZIP Code Phon e Number [place] [address] [place], [place] [address] [place] [facility] [place] [id number] [address] ALT (Alanine Aminotransferase) (03/31/2022 5:31 PM CDT) Patholo gist Method Time Signature Alanine 10 7 - 45 03/31/2022 NPRG Aminotransferase U/L 5:59 PM CDT (ALT), P Specimen Anatomical Collection Method Collection Time Receive d Time (Source) Location / / Volume Laterality Blood (Blood, 03/31/2022 5:31 PM 03/31/20 5:34 Venous) CDT PM CDT Cheikh Gautam M.D. LAB BLOOD ADD-ON Performing Organization Address City/[facility] Phon e Number [address] [address] [place] [facility] [place] [phone] [address] AST (Aspartate Aminotransferase) (03/31/2022 5:31 PM CDT) [facility] Method Time Signature Aspartate 13 8 - 43 03/31/2022 NPRG Aminotransferase U/L 5:59 PM CDT (AST), P Specimen Anatomical Collection Method Collection Time Receive d Time (Source) Location / / Volume Laterality Blood (Blood, 03/31/2022 5:31 PM 03/31/20 22 5:34 Venous) CDT PM CDT Cheikh Gautam M.D. LAB BLOOD ADD-ON Performing Organization Address City/[facility]/ZIP Code Phon e Number [place] [address] [place], [place] [address] [place] [facility] [place] [phone] (ABNORMAL) Creatinine with Estimated GFR (03/31/2022 5:31 PM CDT) Analysis Performed At [facility] logist Time Signature Creatinine 0.58 (L) 0.59 - 03/31/2022 NPRG 1.04 mg/dL 5:59 PM CDT eGFR-Black/Afri >90 >=60 03/31/2022 NPRG can Mosotho mL/min/BSA 5:59 PM CDT Comment: ----ADDITIONAL INFORMATION---- [...] M.D. LAB BLOOD ADD-ON Performing Organization Address City/[facility] Phon e Number [facility]- [address] [place] [address] [place] [address] [place] [address] Chlamydia / Gonorrhoeae Amplified RNA (03/27/2022 10:42 AM CDT) [facility] gist Method Time Signature Source Urine, [...] - GENERAL O RDERABLES Performing Organization Address City/[facility]/ZIP Code Phon e Number [facility]- [address] [place] [address] [place] [address] System in [place] [address] [facility] documented in this encounter Visit Diagnoses Diagnosis High Risk (HCC) - Primary Encounter For Supervision Of Normal Preg roberta Unspecified Trimester (HCC) documented in this encounter Additional Health Concerns Assessment Noted Time PHQ-9 Depression Total Score: 4 12/20/2021 10:52 AM CS T documented as of this encounter Care Teams Willower Relationship Specialty Start Date End Date Ben Arce M.D. PCP - General Family Medicine 01/13/[address] [place] [address] documented as of this encounter
--- OUTSIDE RECORDS SUMMARY | 2022-06-20 18:49 | XMS_ITS | Encounter Summary ---
:1990 Author Organization [facility] Address [address] [place] [address] Care Team Providers Name Role Phone Ben Arce M.D. Primary Care Provider Reason for Referral Outpatient (Routine) - Authorized Specialty Diagnoses / Procedures Referred By Contact Refer red To Contact Diagnoses Pain Back Pain Neck Ben Arce M.D. External, Referring [address] [place] [address] Referral ID Status Reason Start Expiration Visits Visits Date Date Requested Authorized [id number] Authorized Patient 03/01/2022 03/01/2023 1 1 Preference Reason for Visit Reason Comments Outside Order Insurance Referral Encounter Details Date Type Department Care Team Description 03/01/2022 Clinical Communication Department of Ben Arce, Outs [facility] Order Family Medicine in [place] (Insurance Referral) [place] [address] [place] [address] [facility] [address] [phone] Social History Tobacco Use Types Packs/Day Years [...] do you attend orthodox or Never 2021 synagogue services? Do you belong to any clubs or No 11/20/2021 organizations such as orthodox groups, unions, fraLocalBonus or athletic groups, or school groups? How [...] at Date Recorded Female 12/02/2021 5:19 PM MOISTURE CONDITIONER OPERATOR documented as of this encounter Miscellaneous Notes Telephone Encounter - Jossie Ramos - 03/06/2022 8:41 AM CDT [facility] restricted referral faxed 03/02/22 with office visit notes. Also faxed [facility] restricted forms for OB care [facility]. Thank you, Jossie Referrals 03/02/22 Lore called from [facility] [phone]. This referral has been processed. 03/03/22sla. Telephone Encounter - Ben Arce M.D. - 03/01/2022 3:07 PM CDT Order signed. Telephone Encounter - Jossie Ramos - 03/01/2022 2:[address] Arce, ORDER/LAB/REFERRAL REQUEST: Name of test/referral/order requested: [facility] Dr. Med [place] i [id number] Reason for request: Back and neck pain Date needed: 02/26/22 Order pended to this encounter, once signed we can submit the Restricted [facility] referral for insurance. Thank you, Jossie Referrals 03/01/22 documented in this encounter Plan of Treatment Not on filedocumented as of this encounter Visit Diagnoses Diagnosis Pain Back - Primary Pain Neck documented in this encounter Additional Health Concerns Assessment Noted Time PHQ-9 Depression Total Score: 4 12/20/2021 10:52 AM CS T documented as of this encounter Care Teams Credit Card Control Clerk Relationship Specialty Start Date End Date Ben Arce M.D. PCP - General Family Medicine 01/13/[address] [place] [address] documented as of this encounter
--- OUTSIDE RECORDS SUMMARY | 2022-06-20 18:49 | XMS_ITS | Encounter Summary ---
:1990 Author Organization [facility] Address [address] [place] [address] Care Team Providers Name Role Phone Ben Arce M.D. Primary Care Provider Reason for Visit Reason Comments Hand Injury Medical Information Encounter Details Date Type Department Care Team Description 02/11/2022 Nurse Triage Department of [facility] Rylie Hightower Hand Injury; Medical Medicine in [place], [place] [address] [facility] [address] [place] [address] [phone] Social History Tobacco Use Types Packs/Day Years [...] do you attend adventist or Never 2021 yarsanism services? Do you [...] at Date Recorded Female 12/02/2021 5:19 PM FLAT MACHINE CUTTER documented as of this encounter Miscellaneous [...] or deformed) Protocols used: HAND AND WRIST [id number]-LNAMV-PN documented in this encounter Plan of Treatment Not on filedocumented as of this encounter Visit Diagnoses Not on filedocumented in this encounter Additional Health Concerns Assessment Noted Time PHQ-9 Depression Total Score: 4 12/20/2021 10:52 AM CS T documented as of this encounter Care Teams Lumber Press Operator Relationship Specialty Start Date End Date Ben Arce M.D. PCP - General Family Medicine 01/13/[address] [place] [address] documented as of this encounter
--- OUTSIDE RECORDS SUMMARY | 2022-06-20 18:49 | XMS_ITS | Encounter Summary ---
:1990 Author Organization [facility] Address [address] [place] [address] Care Team Providers Name Role Phone Ben Arce M.D. Primary Care Provider Reason for Visit Reason Comments Routine Visit 12+2weeks Sinusitis Concerns Outpatient (Routine) - Authorized Specialty Diagnoses / Procedures Referred By Contact Refer red To Contact Obstetrics and Cheikh Gautam [facility] william Gynecology MGonzalez Referral ID Status Reason Start Date Expiration Date Visits V isits Requested Authorized [id number] Authorized 12/20/2021 12/20/2022 15 15 Encounter Details Date Type Department Care Team Description 02/01/2022 Routine Department of Terrence Swenson [facility] Obstetrics and MGonzalez (Primary Dx) Gynecology in [address] [address] [place], [place] [phone] [address] (Work) [phone] Social History Tobacco Use Types Packs/Day Years [...] do you attend protestant or Never 2021 synagogue services? Do you [...] at Date Recorded Female 12/02/2021 5:19 PM CONCILIATOR documented as of this encounter Last Filed Vital Signs Vital Sign Reading Time Taken Comments Blood Pressure 130/86 02/01/2022 8:50 AM CDT Pulse - - Temperature - - Respiratory Rate - - Oxygen Saturation - - Inhaled Oxygen Concentration - - Weight 69.9 kg (154 lb 1.6 oz) 02/01/2022 8:49 AM CDT Height - - Body Mass Index 29.09 12/09/2021 8:31 AM CONCILIATOR documented in this encounter Progress Notes Terrence [...] ASSESSMENT / PLAN #1 High Risk - [id number] Plus-Sent Out Lab; Future; Expected date: 02/01/2022 [...] has been sent to her pharmacy in [place]. Most of the early symptoms of including [...] on filedocumented as of this encounter Results [id number] Plus-Sent Out Lab (02/01/2022 9:52 AM CDT) [...] Organization Address City/State/ZIP Code Phon e Number WAY [facility] [address] [place] [address] [place] [address] [employer] [address] documented in this encounter Visit Diagnoses Diagnosis High Risk (HCC) - Primary documented in this encounter Additional Health Concerns Assessment Noted Time PHQ-9 Depression Total Score: 4 12/20/2021 10:52 AM CS T documented as of this encounter Care Teams Liquid Floor And Wall Applier Relationship Specialty Start Date End Date Ben Arce M.D. PCP - General Family Medicine 01/13/[address] [place] [address] documented as of this encounter
--- OUTSIDE RECORDS SUMMARY | 2022-06-20 18:49 | XMS_ITS | Encounter Summary ---
:1990 Author Organization [facility] Address [address] [place] [address] Care Team Providers Name Role Phone Ben Arce M.D. Primary Care Provider Encounter Details Date Type Department Care Team Description 12/20/2021 Hospital Encounter Department of Cheikh Gautam Laboratory Medicine Minoo Garcia Supervis ion Of Other in [facility] Unspecified [address] [place] [address] Social History Tobacco Use Types Packs/Day Years [...] do you attend worship or Never 2021 temple services? Do you [...] at Date Recorded Female 12/02/2021 5:19 PM SMALL ANIMAL CARETAKER documented as of this encounter Medications at [...] Encounter For Results for this , S SMALL ANIMAL CARETAKER Supervision Of Other procedu re are in Normal the results Unspecified section. Trimester HIV-1/-2 AG AND AB Routine 12/20/2021 11:34 AM Encounter For R esults for this SCRN, SMALL ANIMAL CARETAKER Supervision Of Other proce dure are in PLASMA Normal the results Unspecified section. Trimester SYPHILIS TOTAL AB Routine 12/20/2021 11:34 AM Encounter For Re sults for this W/ REFLEX S SMALL ANIMAL CARETAKER Supervision Of Other procedu re are in Normal the results Unspecified section. Trimester HBS ANTIGEN Routine 12/20/2021 11:34 AM Encounter For Results for this , S SMALL ANIMAL CARETAKER Supervision Of Other procedu re are in Normal the results Unspecified section. Trimester ABORH, RBC Routine 12/20/2021 11:34 AM Encounter For Results for this SMALL ANIMAL CARETAKER Supervision Of Other procedu re are in Normal the results Unspecified section. Trimester RUBELLA ANTIBODIES, Routine 12/20/2021 11:34 AM Encounter For Results for this IGG SMALL ANIMAL CARETAKER Supervision Of Other procedu re are in Normal the results Unspecified section. Trimester CBC WITHOUT Routine 12/20/2021 11:34 AM Encounter For Results for this DIFFERENTIAL, B SMALL ANIMAL CARETAKER Supervision Of Other proc edure are in Normal the results Unspecified section. Trimester ANTIBODY SCREEN, B Routine 12/20/2021 11:34 AM Encounter For R esults for this SMALL ANIMAL CARETAKER Supervision Of Other procedu re are in Normal the results Unspecified section. Trimester documented in this encounter Results Hepatitis C Virus Antibody Screen (12/20/2021 11:34 AM SMALL ANIMAL CARETAKER) P athologist Signature HCV Ab Scrn Negative Negative 12/21/2021 [facility] , S 8:10 AM SMALL ANIMAL CARETAKER Comment: Bpkzol-db-dfjqbp ratio is <1.00 . Specimen Anatomical Collection Method Collection Time Receive d Time (Source) Location / / Volume Laterality Blood (Blood, 12/20/2021 11:34 12/21/2021 6:40 Venous) AM SMALL ANIMAL CARETAKER AM SMALL ANIMAL CARETAKER Cheikh Gautam M.D. LAB MICROBIOLOGY - BLOOD ORD ERABLES Performing Organization Address City/[facility]/ZIP Code Phon e Number [facility] [address] [place]I [place] [address] [place] [address] [place] [address] Laboratory Medicine and Pathology [address] SANDOVAL Syphilis Total Ab w/ Reflex, Serum (12/20/2021 11:34 AM SMALL ANIMAL CARETAKER) Patholo gist Method Time Signature Syphilis Nonreactive Nonreactive 12/21/2021 [facility] Total Ab w/ 11:40 AM SMALL ANIMAL CARETAKER Reflex Comment: No serologic evidence of infection with T. pallidum (syphilis). ??Repeat testing may be cons idered in patients with suspected acute or primary syphilis in 2-4 weeks. For additional information on interpreta tion of the syphilis reverse algorithm and resul ts, see: [email or web address] [email or web address] df Specimen Anatomical Collection Method Collection Time Receive d Time (Source) Location / / Volume Laterality Blood (Blood, 12/20/2021 11:34 12/20/2021 6:27 Venous) AM SMALL ANIMAL CARETAKER PM SMALL ANIMAL CARETAKER Cheikh Gautam M.D. LAB BLOOD ADD-ON Performing Organization Address City/[facility] Phon e Number [phone] [place] [address] System [address] Rubella Antibodies, IgG (12/20/2021 11:34 AM SMALL ANIMAL CARETAKER) P athologist Signature Rubella Ab, Positive 12/21/2021 [facility] IgG, S 11:40 AM SMALL ANIMAL CARETAKER Comment: Results suggest response to immunization or prior exposure to the virus. ----REFERENCE VALUE---- Vaccinated: Positive (>=1.0 AI) Unvaccinated: Negative (<=0.7 AI) Rubella IgG Antibody Index 2.6 12/21/2021 11 :40 AM SMALL ANIMAL CARETAKER [facility] Specimen Anatomical Collection Method Collection Time Receive d Time (Source) Location / / Volume Laterality Blood (Blood, 12/20/2021 11:34 12/20/2021 6:27 Venous) AM SMALL ANIMAL CARETAKER PM SMALL ANIMAL CARETAKER Cheikh Gautam M.D. LAB MICROBIOLOGY - BLOOD ORD ERABLES Performing Organization Address City/State/ZIP Code Phon e Number [facility]- [address] [place] [address] [phone] [place] [address] System [address] HIV-1/-2 Ag and Ab Scrn, Plasma (12/20/2021 11:34 AM SMALL ANIMAL CARETAKER) P athologist Signature HIV Ag/Ab Negative Negative 12/21/2021 [facility] Scrn, 11:40 AM SMALL ANIMAL CARETAKER P Comment: Negative result does not rule out HIV in fection. If exposure to HIV infection occurred <14 d ays ago, contact the laboratory to request additi on of HIV-1 RNA detection / quantification test. HIV-1 p24 Ag Scrn, P Negative Negative 12/21/2021 11:40 AM SMALL ANIMAL CARETAKER [facility] Comment: Negative result does not rule out HIV in fection. If exposure to HIV infection occurred <14 d ays ago, contact the laboratory to request additi on of HIV-1 RNA detection / quantification test. HIV-1 Ab Scrn, P Negative Negative 12/21/2021 11: 40 AM SMALL ANIMAL CARETAKER [facility] Comment: Negative result does not rule out HIV in fection. If exposure to HIV infection occurred <14 d ays ago, contact the laboratory to request additi on of HIV-1 RNA detection / quantification test. HIV-2 Ab Scrn, P Negative Negative 12/21/2021 11: 40 AM SMALL ANIMAL CARETAKER [facility] Comment: Negative result does not rule out HIV in fection. If exposure to HIV infection occurred <14 d ays ago, contact the laboratory to request additi on of HIV-1 RNA detection / quantification test. Specimen Anatomical Collection Method Collection Time Receive d Time (Source) Location / / Volume Laterality Blood (Blood, 12/20/2021 11:34 12/20/2021 6:27 Venous) AM SMALL ANIMAL CARETAKER PM SMALL ANIMAL CARETAKER Cheikh Gautam M.D. LAB MICROBIOLOGY - BLOOD ORD ERABLES Performing Organization Address City/State/ZIP Code Phon e Number [facility]- [address] [place] [address] [phone] [place] [address] System [address] HBs Antigen , Serum (12/20/2021 11:34 AM SMALL ANIMAL CARETAKER) [facility] Method Time Signature HBs Antigen Non reactive Non reactive 12/20/2021 [facility] , S 4:50 PM SMALL ANIMAL CARETAKER Specimen Anatomical Collection Method Collection Time Receive d Time (Source) Location / / Volume Laterality Blood (Blood, 12/20/2021 11:34 12/20/2021 3:49 Venous) AM SMALL ANIMAL CARETAKER PM SMALL ANIMAL CARETAKER Cheikh Gautam M.D. LAB MICROBIOLOGY - BLOOD ORD ERABLES Performing Organization Address City/State/ZIP Code Phon e Number [facility]- [address] [place] [address] [facility] [place] [address] [facility] [address] (ABNORMAL) CBC without Differential (12/20/2021 11:34 AM SMALL ANIMAL CARETAKER) [facility] Method Time Signature Hemoglobin 14.1 11.6 - 12/20/2021 [facility] 15.0 g/dL 11:44 AM SMALL ANIMAL CARETAKER Hematocrit 41.0 35.5 - 12/20/2021 [facility] 44.9 % 11:44 AM SMALL ANIMAL CARETAKER Erythrocytes 4.91 3.92 - 12/20/2021 [facility] 5.13 11:44 AM SMALL ANIMAL CARETAKER x10(12)/L MCV 83.5 78.2 - 12/20/2021 [facility] 97.9 fL 11:44 AM SMALL ANIMAL CARETAKER RBC Distrib Width 11.7 (L) 12.2 - 12/20/2021 [facility] 16.1 % 11:44 AM SMALL ANIMAL CARETAKER Platelet Count 360 157 - 371 12/20/2021 [facility] x10(9)/L 11:44 AM SMALL ANIMAL CARETAKER Leukocytes 11.1 (H) 3.4 - 9.6 12/20/2021 [facility] x10(9)/L 11:44 AM SMALL ANIMAL CARETAKER Specimen Anatomical Collection Method Collection Time Receive d Time (Source) Location / / Volume Laterality Blood (Blood, 12/20/2021 11:34 12/20/2021 Venous) AM SMALL ANIMAL CARETAKER 11:40 AM SMALL ANIMAL CARETAKER Cheikh M Dain M.D. LAB BLOOD ADD-ON Performing Organization Address City/[facility]/ZIP Code Phon e Number [facility]- [address] [place] [address] [facility] [address] System in [place] [address] Antibody Screen, RBC (with reflex Antibody ID) (12/20/2021 11:34 AM SMALL ANIMAL CARETAKER) P athologist Signature Antibody Screen NEG 12/20/2021 [facility] 5:16 PM SMALL ANIMAL CARETAKER Specimen Anatomical Collection Method Collection Time Receive d Time (Source) Location / / Volume Laterality Blood (Blood, 12/20/2021 11:34 12/20/2021 3:49 Venous) AM SMALL ANIMAL CARETAKER PM SMALL ANIMAL CARETAKER Cheikh Gautam M.D. LAB BLOOD BANK TEST ORDERABL ES Performing Organization Address City/[facility]/ZIP [facility] Phon e Number [facility]- [address] [place] [address] [facility] [place], [place] [address] [place] [address] [address] [facility] ABORh, RBC (12/20/2021 11:34 AM SMALL ANIMAL CARETAKER) P athologist Signature ABO Group O 12/20/2021 5:16 [place] PM SMALL ANIMAL CARETAKER Rh Type POS 12/20/2021 5:16 [facility] PM SMALL ANIMAL CARETAKER Specimen Anatomical Collection Method Collection Time Receive d Time (Source) Location / / Volume Laterality Blood (Blood, 12/20/2021 11:34 12/20/2021 3:51 Venous) AM SMALL ANIMAL CARETAKER PM SMALL ANIMAL CARETAKER Cheikh Gautam M.D. LAB BLOOD BANK TEST ORDERABL ES Performing Organization Address City/[facility]/ZIP [facility] Phon e Number [facility]- [address] [place] [address] [facility] [place], [place] [address] [place] [address] [address] [facility] documented in this encounter Visit Diagnoses Diagnosis Encounter For Supervision Of Other Stella l Unspecified Trimester (HCC) documented in this encounter Additional Health Concerns Assessment Noted Time PHQ-9 Depression Total Score: 4 12/20/2021 10:52 AM CS T documented as of this encounter Care Teams Pharmacy Benefits Coordinator Relationship Specialty Start Date End Date Ben Arce M.D. PCP - General Family Medicine 01/13/[address] [place] [address] documented as of this encounter
--- OUTSIDE RECORDS SUMMARY | 2022-06-20 18:49 | XMS_ITS | Encounter Summary ---
:1990 Author Organization [facility] Address [address] [place] [address] Care Team Providers Name Role Phone Ben Arce M.D. Primary Care Provider Encounter Details Date Type Department Care Team Description 12/20/2021 Orders Only Department of Obstetrics and Gau Terrence zamarripa M.D. Gynecology in [address] [address] [place] [address] [phone] Social History Tobacco Use Types Packs/Day Years [...] do you attend lutheran or Never 2021 mormon services? 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 PCP - General Family Medicine 01/13/[address] [place] [phone] documented as of this encounter
--- OUTSIDE RECORDS SUMMARY | 2022-06-20 18:49 | XMS_ITS | Clinical Summary ---
:1990 Author Organization [facility] Address [address] [place] [address] Care Team Providers Name Role Phone Ben Arce M.D. Primary Care Provider Source Comments Patient records contain information from all sites at [facility]. For routine questions regarding patient records, call [phone] during business hours, M-F 8:00 AM - 5:00 PM Central Time. Record requests for emergency care only can be directed to [phone] at any time.[facility] Allergies Active Allergy Reactions Severity Noted Date Comments [place] Pollen Itching, Wheezing 04/17/2022 Medications Medication Sig [...] COVID complete but needs b ooster/Flu declines Coat Cutter: Pap NIL w/ neg HPV 11/2021 Aneuploidy [...] told me she is transferr ing to [facility] because it is closer. History Of Falling [...] Supervision Of Normal Pregnanc y Unspecified Trimester ([facility]) 04/18/2022 Routine Obstetrics and Rylie Mcdowell, 23 Weeks Gestation Gynecology MGonzalez ([facility]) (Primary Dx) 04/17/2022 Hospital Encounter Labor and Delivery Rylie Mcdowell, 23 Weeks Gestation M.DMaribell (HCC) 03/31/2022 Hospital Encounter Laboratory Medicine Cheikh Gautam High Risk Minoo Garcia ([facility]) 03/27/2022 Routine Obstetrics and Cheikh Gautam High Ri sk ([facility]) (Primary Dx); Gynecology Minoo Garcia Encounter For S upervision Of Normal Unspecified Trimester ([facility]) 03/27/2022 Ancillary Procedure Obstetrics and Cheikh Gautam Enco unter For Gynecology Minoo Garcia Supervision Of Other Normal Pregnanc y Unspecified Trimester ([facility]) from Last 3 Months Immunizations Name Administration [...] do you attend congregation or Never 2021 samaritan services? Do you belong to any clubs [...] at Date Recorded Female 12/02/2021 5:19 PM VISUAL COORDINATOR Last Filed Vital Signs Vital Sign Reading [...] this topic Medical Devices Implanted Type Area Billiard Table Repairer Device Shelf Model / Identifier Expiration Serial [...] 06/12/2022 AM CDT 10:57 AM CDT Generic [facility] LAB POCT ORDERABLES-MANUAL Performing Organization Address City/State/ZIP Code Phon e Number [facility]- [facility][note 2] [address] [place] [address] [facility] [address] [place] (ABNORMAL) Urinalysis with Microscopic: Urine, Midstream (04/28/2022 [...] 8.0 04/28/2022 11:36 AM CDT NPRG Specific [place] 1.015 1.001 - 1.035 04/28/2022 11:36 AM [...] Organization Address City/State/ZIP Code Phon e Number [facility]- [address] [place] [address] [place] [address] [place] [address] 2nd [facility] Influenza A/B, SARS CoV-2, PCR, Rapid, Varies (04/28/2022 8:48 AM CDT) [facility] Method Time Signature Influenza A, Negative Negative 04/28/2022 NPRG PCR, Rapid, V 9:26 AM CDT Influenza B, Negative Negative 04/28/2022 NPRG PCR, Rapid, V 9:26 AM CDT SARS CoV-2, Undetected Undetected 04/28/2022 NPRG PCR, Rapid, V 9:26 AM CDT Comment: ----ADDITIONAL INFORMATION---- This RT-PCR test was performed using the Carissa SARS-CoV-2 and Influenza A/B Reagent assay from [employer], which has received Emergency Use Authori zation(EUA) by the U.S. Food and Drug Administration . Fact sheets for this Emergency Use Autho rization (EUA) assay can be found at the following link s: For Healthcare Providers: https://www.fda.gov/media/494687/downloa d For Patients: https://www.fda.gov/media/128117/downloa d Infl A/B, SARS CoV-2, PCR, Source Swab, Nasopharynx 04/28/2022 9:02 AM CDT NPRG Specimen Anatomical Collection Method Collection Time Receive d Time (Source) Location / / Volume Laterality Varies 04/28/2022 8:48 AM 9:02 CDT AM CDT Rylie Mcdowell M.D. LAB MICROBIOLOGY - GENERAL O RDERABLES Performing Organization Address City/[facility] Phon e Number [address] LAB NPRG [place] [phone] Protein/Creatinine Ratio, Random, Urine (03/31/2022 5:34 [...] M.D. LAB URINE ORDERABLES Performing Organization Address [facility] Phon e Number [address] LAB NPRG [place] [phone] ALT (Alanine Aminotransferase) (03/31/2022 5:31 PM CDT) Patholo gist Method Time Signature Alanine 10 7 - 45 03/31/2022 NPRG Aminotransferase U/L 5:59 PM CDT (ALT), P Specimen Anatomical Collection Method Collection Time Receive d Time (Source) Location / / Volume Laterality Blood (Blood, 03/31/2022 5:31 PM 03/31/20 5:34 Venous) CDT PM CDT Cheikh Gautam M.D. LAB BLOOD ADD-ON Performing Organization Address City/[facility] Phon e Number [address] [place] [address] LAB NPRG [place] [phone] AST (Aspartate Aminotransferase) (03/31/2022 5:31 PM CDT) [facility] gist Method Time Signature Aspartate 13 8 - 43 03/31/2022 NPRG Aminotransferase U/L 5:59 PM CDT (AST), P Specimen Anatomical Collection Method Collection Time Receive d Time (Source) Location / / Volume Laterality Blood (Blood, 03/31/2022 5:31 PM 03/31/20 5:34 Venous) CDT PM CDT Cheikh Gautam M.D. LAB BLOOD ADD-ON Performing Organization Address City/[facility] Code Phon e Number [address] [place] [address] LAB NPRG [place] [phone] (ABNORMAL) Creatinine with Estimated GFR (03/31/2022 5:31 PM CDT) Analysis Performed At Patho logist Time Signature Creatinine 0.58 (L) 0.59 - 03/31/2022 NPRG 1.04 mg/dL 5:59 PM CDT eGFR-Black/Afri >90 >=60 03/31/2022 NPRG can Indonesian mL/min/BSA 5:59 PM CDT Comment: ----ADDITIONAL INFORMATION---- [...] M.D. LAB BLOOD ADD-ON Performing Organization Address City/[facility] Phon e Number [address] [place] [address] [place] [address] Chlamydia / Gonorrhoeae Amplified RNA (03/27/2022 10:42 AM CDT) [facility] gist Method Time Signature Source Urine, [...] - GENERAL O RDERABLES Performing Organization Address City/[facility] Phon e Number [facility]- [address] [place] [address] [place] [address] [address] OB Anatomy Martins (03/27/2022 10:28 AM [...] / Subscriber ID Effective Phone Address T [facility] Group Dates EMPLOYERS EMPLOYERS [id number] 2019-Pres [phone] [address] [facility] INSURANCE INSURANCE [facility] [address] [address] [place] [address] [facility] [id number] 2022-Pres [phone] [address] HMO ent [address] [place] [address] Lulu Mata Workers Comp Self [address] (Home) [place] [address] Lulu Mata Third Democrat Self [address] Liability (Home) [place] [address] Care Teams Assurance Services Manager Health Care Relationship Specialty Start Date End Date Ben Arce M.D. PCP - General Family Medicine 01/13/[address] [place] [phone]
--- OUTSIDE RECORDS SUMMARY | 2022-06-20 18:50 | XMS_ITS | Encounter Summary ---
:1990 Author Organization [facility] Address [address] [place] [address] Care Team Providers Name Role Phone Elsewhere, Pcp Primary Care Provider Unavailable Reason for Visit Reason Comments Pain In Limb Follow up on left elbow Outpatient (Routine) - Closed Specialty Diagnoses / Procedures Referred By Contact Refer red To Contact Family Medicine Zack Macdonald M.D. [facility] Region [address] [place] [address] Referral ID Status Reason Start Date Expiration Date Visits Requ ested Visits Authorized [id number] Closed 12/16/2020 12/16/2021 1 1 Encounter Details Date Type Department Care Team Description 12/24/2020 Office Visit Department of Donya Fitzgerald Pain Elbow Left Medicine in [facility], FATOU, C.N.P., (Primary Dx) [place], [place] D.N.P. [address] [place] [phone] Social History Tobacco Use Types Packs/Day Years [...] do you attend sikhism or Never 2021 gnosticism services? 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 Donya Lind, MIGUELANGEL, DNP AL ARCHITECT documented in this encounter Plan of Treatment Not on filedocumented as of this encounter Visit Diagnoses Diagnosis Pain Elbow Left - Primary documented in this encounter Care Teams Freight Coordinator Relationship Specialty Start Date End Date Elsewhere, Pcp PCP - General Family Medicine 01/08/18 01/12/21 documented as of this encounter
--- OUTSIDE RECORDS SUMMARY | 2022-06-20 18:50 | XMS_ITS | Encounter Summary ---
:1990 Author Organization [facility] Address [address] [place] [address] Care Team Providers Name Role Phone Ben Arce M.D. Primary Care Provider Reason for Visit Reason Comments Med Refill Encounter Details Date Type Department Care Team Description 11/24/2021 Refill Department of Family Medicine Ben Maynard M.D. Med Refill in [facility] [address] [place] [phone] (Wo rk) Social History Tobacco Use Types [...] you attend roman catholic or Never 2021 scientologist services? 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 PCP - General Family Medicine 01/13/[address] [place] [address] documented as of this encounter
--- OUTSIDE RECORDS SUMMARY | 2022-06-20 18:50 | XMS_ITS | Encounter Summary ---
:1990 Author Organization [facility] Address [address] [place] [address] Care Team Providers Name Role Phone Ben [...] Type Department Care Team Description 03/01/2021 Emergency [place] Valerie Malone Contu sion Head Initial (Primary Dx); Department Minoo Strain Neck Initial [address] [place] [phone] [phone] Social History Tobacco Use Types Packs/Day Years [...] or relatives? How often do you attend anabaptism or Never 2021 bahai services? Do you belong to any clubs or No 11/20/2021 organizations such as anabaptism groups, unions, fraternal or athletic groups, or [...] Date Recorded Female 12/02/2021 5:19 PM MEDICAL RECEPTIONIST BILLER documented as of this encounter Last Filed [...] through Care Everywhere. Facial or Scalp Contusion (Macedonian)documented in this encounter Medications at Time of [...] ondansetron ODT disintegrating tablet 4 mg (ZOFRAN-ODT) ([facility]) 1101 (Given - Provider: Nita Rao R.N.) 4 mg, oral, Once, On Sun03/01/21 at 1058 , For 1 dose, When splitting ODT at bedside, handle with gloves and a pill splitter to prevent moisture contact. documented in this encounter Care Teams Corporate Buyer Relationship Specialty Start Date End Date Ben Arce M.D. PCP - General Family Medicine 01/13/[address] [place] [phone] documented as of this encounter
--- OUTSIDE RECORDS SUMMARY | 2022-06-20 18:50 | XMS_ITS | Encounter Summary ---
:1990 Author Organization [facility] Address [address] [place] [address] Care Team Providers Name Role Phone Elsewhere, Pcp Primary Care Provider Unavailable Reason for Visit Reason Comments Arm Injury pt presents with left arm (e lbow area) pain after falling this morning around 0730. Pt fell outside on icy pavement. No other injuries. Pt did work all day at [employer]. Encounter Details Date Type Department Care Team Description 12/14/2020 Emergency [place] [facility] CalderonBull M, Inj ury Arm Initial Left Department M.D. (Primary Dx) [address] [facility] [place] [phone] Social History Tobacco Use Types Packs/Day Years [...] do you attend taoist or Never 2021 jewish services? Do you [...] at Date Recorded Female 12/02/2021 5:19 PM VOLTAGE TESTER documented as of this encounter Last Filed Vital Signs Vital Sign Reading Time Taken Comments Blood Pressure 149/105 12/14/2020 6:00 PM VOLTAGE TESTER Pulse 68 12/14/2020 6:10 PM VOLTAGE TESTER Temperature 37.1 ??C (98.8 ??F) 12/14/2020 6:00 PM VOLTAGE TESTER Respiratory Rate 16 12/14/2020 6:00 PM VOLTAGE TESTER Oxygen Saturation 97% 12/14/2020 6:10 PM VOLTAGE TESTER Inhaled Oxygen Concentration - - Weight 71.8 kg (158 lb 4.6 oz) 12/14/2020 5:24 PM VOLTAGE TESTER Height 152 cm (4' 11.84) 12/14/2020 5:24 PM VOLTAGE TESTER Body Mass Index 31.08 12/14/2020 5:24 PM VOLTAGE TESTER documented in this encounter Discharge Instructions AttachmentsThe following attachments cannot be sent through Care Everywhere.RICE Therapy for Routine Care of Injuries [id number] (Danish)documented in this encounter Medications at Time of [...] injuries. Pt did work all day at [employer]. ) HISTORY OF PRESENT ILLNESS 30-year-old female [...] the fall. She went to work at [employer], where she work throughout the day, though [...] Arm Initial Left Bull Calderon M.D. 12/14/201810 AGE TESTER documented in this encounter Plan of Treatment Not on filedocumented as of this encounter Procedures Procedure Name Priority Date/Time Associated Comments Diagnosis DX WRIST LEFT 3+ RAD - Semiurgent 12/14/2020 5:57 Resu lts for this VIEWS (Fast; most ED PM VOLTAGE TESTER procedure are in patients; some the results inpatients) section. DX SHOULDER LEFT RAD - Semiurgent 12/14/2020 5:54 Resu lts for this 2+ VIEWS (Fast; most ED PM VOLTAGE TESTER procedure are in patients; some the results inpatients) section. DX ELBOW LEFT 3+ RAD - Semiurgent 12/14/2020 5:52 Resu lts for this VIEWS (Fast; most ED PM VOLTAGE TESTER procedure are in patients; some the results inpatients) section. documented in this encounter Results DX Wrist Left 3+ Views (12/14/2020 5:57 PM VOLTAGE TESTER) Anatomical Region Laterality Modality Upper Extremity, Wrist, Musculoskeletal RST LOS, Left Digital Radiography Musculoskeletal ARZ LOS, Muskuloskeletal FLA LOS Specimen (Source) Anatomical Collection Method Collection Time Re ceived Time Location / / Volume Laterality 12/14/2020 5:58 PM VOLTAGE TESTER Impressions 12/14/2020 5:59 PM VOLTAGE TESTER No acute radiographic abnormalities are demonstrated. Narrative 12/14/2020 5:59 PM VOLTAGE TESTER EXAM: DX WRIST LEFT 3+ VIEWS COMPARISON: [...] Shoulder Left 2+ Views (12/14/2020 5:54 PM VOLTAGE TESTER) Anatomical Region Laterality Modality Upper Extremity, Shoulder, Musculoskeletal RST LOS, Left Digital Radiography Musculoskeletal ARZ LOS, Muskuloskeletal FLA LOS Specimen (Source) Anatomical Collection Method Collection Time Re ceived Time Location / / Volume Laterality 12/14/2020 5:57 PM VOLTAGE TESTER Impressions 12/14/2020 5:58 PM VOLTAGE TESTER No acute radiographic abnormalities are demonstrated. Narrative 12/14/2020 5:58 PM VOLTAGE TESTER EXAM: DX SHOULDER LEFT 2+ VIEWS COMPARISON: [...] Elbow Left 3+ Views (12/14/2020 5:52 PM VOLTAGE TESTER) Anatomical Region Laterality Modality Upper Extremity, Elbow, Musculoskeletal RST LOS, Left Digital Radiography Musculoskeletal ARZ LOS, Muskuloskeletal FLA LOS Specimen (Source) Anatomical Collection Method Collection Time Re ceived Time Location / / Volume Laterality 12/14/2020 5:56 PM VOLTAGE TESTER Impressions 12/14/2020 5:57 PM VOLTAGE TESTER No acute radiographic abnormalities are demonstrated. Narrative 12/14/2020 5:57 PM VOLTAGE TESTER EXAM: DX ELBOW LEFT 3+ VIEWS COMPARISON: [...] tablet 1,000 mg Given 12/14/2020 5:28 PM VOLTAGE TESTER 1,000 mg (TYLENOL) 1,000 mg, oral, Once, On Sun12/14/20 at 1721, For 1 dose documented in this encounter Active and Recently Administered Medications Times are shown in VOLTAGE TESTER. Scheduled Medication Order 12/12/2020 12/13/2020 12/14/2020 acetaminophen tablet 1,000 mg (TYLENOL) (COMPLETED) 1728 (Given - Provider: Nita Maira, R.N.) 1,000 mg, oral, Once, On Sun12/14/20 at 1721, For 1 dose documented in this encounter Care Teams Rn Transport Relationship Specialty Start Date End Date Elsewhere, Pcp PCP - General Family Medicine 01/08/18 01/12/21 documented as of this encounter
--- OUTSIDE RECORDS SUMMARY | 2022-06-20 18:50 | XMS_ITS | Encounter Summary ---
:1990 Author Organization [facility] Address [address] [place] [address] Care Team Providers Name Role Phone Ben Arce M.D. Primary Care Provider Reason for Visit Reason Comments Med Refill Encounter Details Date Type Department Care Team Description 03/16/2021 Refill Department of Family Medicine Ben Maynard M.D. Med Refill [facility] [address] [place] [phone] (Wo rk) Social History Tobacco Use Types [...] you attend latter day or Never 2021 gnosticist services? Do you [...] at Date Recorded Female 12/02/2021 5:19 PM INTERMEDIATE ACCOUNTANT documented as of this encounter Miscellaneous Notes Telephone Encounter - Celina Goyal RMaribellN. - 03/16/2021 11:58 AM CDT Refills must come from Dr Arce due to a Restricted program Unable to refill per protocol: Name of Medications Needing Refill: Naproxen Last Refill Date: 02/10/21 [id number], 0 refills Last / Future Appointment: 01/13/21 documented in this encounter Plan of Treatment Not on filedocumented as of this encounter Visit Diagnoses Diagnosis Pain Elbow Left documented in this encounter Care Teams Market Research Interviewer Relationship Specialty Start Date End Date Ben Arce M.D. PCP - General Family Medicine 01/13/[address] [place] [phone] documented as of this encounter
--- OUTSIDE RECORDS SUMMARY | 2022-06-20 18:50 | XMS_ITS | Encounter Summary ---
:1990 Author Organization [facility] Address [address] [place] [address] Care Team Providers Name Role Phone Elsewhere, Pcp Primary Care Provider Unavailable Reason for Referral Outpatient (Routine) - Closed Specialty Diagnoses / Procedures Referred By Contact Refer red To Contact Family Medicine Donya Lind APRN, [facility] C.N.P., D.N.P. Referral ID Status Reason Start Date Expiration Date Visits Requ ested Visits Authorized [id number] Closed 01/07/2021 01/07/2022 1 1 Reason for Visit Reason Comments Follow-up Follow up Elbow Encounter Details Date Type Department Care Team Description 01/07/2021 Office Visit Department of Donya Fitzgerald Pain Elbow Left (Primary Dx); Medicine in [facility] FATOU Lu C.N.PMaribell, Rhinitis Allergic [place], [place] D.N.P. [address] [place] [address] Social History Tobacco Use Types Packs/Day Years [...] do you attend taoist or Never 2021 mormonism services? Do you [...] at Date Recorded Female 12/02/2021 5:19 PM FONDANT MACHINE OPERATOR documented as of this encounter [...] Body Mass Index 31.21 12/14/2020 5:24 PM FONDANT MACHINE OPERATOR documented in this encounter Progress [...] meds for pain management. She works at [employer] and has continued to wear sling at [...] plan of care as outlined. Donya Lind, RETAIL SALES ASSISTANT, DNP documented in this encounter Plan of Treatment Scheduled Referrals Name Type Priority Associated Diagnoses Order S [facility] Family Medicine Outpatient Referral Routine Expec taurus: office visit 02/07/2021 (clinic) (Approximate), Expires: 01/08/2024 documented as of this encounter Visit Diagnoses Diagnosis Pain Elbow Left - Primary Rhinitis Allergic documented in this encounter Care Teams Cell Operation Supervisor Relationship Specialty Start Date End Date Elsewhere, Pcp PCP - General Family Medicine 01/08/18 01/12/21 documented as of this encounter
--- OUTSIDE RECORDS SUMMARY | 2022-06-20 18:50 | XMS_ITS | Encounter Summary ---
:1990 Author Organization [facility] Address [address] [place] [address] Care Team Providers Name Role Phone Elsewhere, Pcp Primary Care Provider Unavailable Reason for Visit Physical Therapy (Routine) - Denied Specialty Diagnoses / Procedures Referred By Contact Refer red To Contact Diagnoses Tendonitis Loulou Teresa APRN, [facility] Procedures PT Evaluate and treat C.N.P. [address] [place] [address] Referral ID Status Reason Start Date Expiration Date Visits Requ ested Visits Authorized [id number] Denied 06/08/2020 10/21/2020 1 0 Encounter Details Date Type Department Care Team Description 06/30/2020 Comprehensive Visit Department of Physical Loulou Metz APRN, C.N.P. [address] [place] [phone] Tendonitis Elbow (Primary Dx); Medicine and Yunior Robins P.TMaribell [address] [place] [phone] Tendonitis Rehabilitation in [place], [place] [address] [place] [phone] Social History Tobacco Use Types Packs/Day Years [...] do you attend episcopalian or Never 2021 judaism services? Do you belong to any clubs or No 11/20/2021 organizations such as episcopalian groups, unions, fraRenal Ventures Management or athletic groups, or school groups? How [...] at Date Recorded Female 12/02/2021 5:19 PM ANCILLARY SERVICES MANAGER THERAPY documented as of this encounter Consult Notes [...] [facility] [place] CARE / Plan: [facility] CARE RESTRICTED PLAN / Product Type: Medicaid HMO / [facility] Visit Count: 1 PERTINENT MEDICAL / SURGICAL [...] Patient works 40 hours at the local [employer]. Patient has a 7-1/2-year-old son. 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 Patient works the [...] Department of Physical Medicine and Rehabilitation in [address] [address] Dept: [phone] LLARY SERVICES MANAGER THERAPY documented in this encounter Plan of Treatment Not on filedocumented as of this encounter Visit Diagnoses Diagnosis Tendonitis Elbow - Primary Tendonitis documented in this encounter Care Teams Rigging Up Worker Relationship Specialty Start Date End Date Elsewhere, Pcp PCP - General Family Medicine 01/08/18 01/12/21 documented as of this encounter
--- OUTSIDE RECORDS SUMMARY | 2022-06-20 18:50 | XMS_ITS | Encounter Summary ---
:1990 Author Organization [facility] Address [address] [place] [address] Care Team Providers Name Role Phone Ben Arce M.D. Primary Care Provider Reason for Visit Reason Comments Other right hand injury---yesterda y Encounter Details Date Type Department Care Team Description 05/18/2021 Office Visit Department of Alexander Estrella Pain Hand Right (Primary Dx); Medicine in [place] Contusion Hand Initial Right [place], [place] [address] [place] [phone] Social History Tobacco Use Types Packs/Day Years [...] do you attend zoroastrianism or Never 2021 jainism services? Do you [...] at Date Recorded Female 12/02/2021 5:19 PM CHIEF DESIGN ENGINEER documented as of this encounter Last [...] She had pain limiting her making a ugashik with the thumb and index finger. No [...] Right documented in this encounter Care Teams Editor In Chief Relationship Specialty Start Date End Date Ben Arce M.D. PCP - General Family Medicine 01/13/[address] [place] [address] documented as of this encounter
--- OUTSIDE RECORDS SUMMARY | 2022-06-20 18:50 | XMS_ITS | Encounter Summary ---
:1990 Author Organization [facility] Address [address] [place] [address] Care Team Providers Name Role Phone Ben Arce M.D. Primary Care Provider Reason for Visit Reason Comments Other swollen and sore throat and fluid in ears right more than the left. was just here on Sunday and saw Donya for her arm Encounter Details Date Type Department Care Team Description 01/13/2021 Office Visit Department of Ben Metzger M.D. Sore Throat (Primary Medicine in [place] [address] Dx) [place], [place] [address] [place] [address] [place], [place] [phone] (Work) [phone] Social History Tobacco Use Types Packs/Day Years [...] do you attend gnosticism or Never 2021 zoroastrianism services? Do you [...] for the very basics like Not v adi hard 11/20/2021 food, housing, medical care, and [...] at Date Recorded Female 12/02/2021 5:19 PM CREMATORY ATTENDANT documented as of this encounter Last [...] Body Mass Index 31.39 12/14/2020 5:24 PM CREMATORY ATTENDANT documented in this encounter Progress Ben Espinal [...] Phon e Number [facility]- [address] [place] [phone] [place] [address] [address] documented in this encounter Visit Diagnoses Diagnosis Sore Throat - Primary documented in this encounter Care Teams Repairer Screen Crusher Relationship Specialty Start Date End Date Ben Arce M.D. PCP - General Family Medicine 01/13/[address] [place] [phone] documented as of this encounter
--- OUTSIDE RECORDS SUMMARY | 2022-06-20 18:50 | XMS_ITS | Encounter Summary ---
:1990 Author Organization [facility] Address [address] [place] [address] Care Team Providers Name Role Phone Ben Arce M.D. Primary Care Provider Reason for Visit Reason Comments Med Refill Naproxen Encounter Details Date Type Department Care Team Description 02/10/2021 Refill Department of Ben Metzger M.D. Med Refill (Naproxen) Medicine in [place] [address] [place], [place] [address] [place] [address] [place] [address] [phone] Social History Tobacco Use Types Packs/Day Years [...] do you attend anabaptist or Never 2021 adventism services? Do you [...] at Date Recorded Female 12/02/2021 5:19 PM MASONRY SUPERVISOR documented as of this encounter Miscellaneous Notes Telephone Encounter - Kennedi Mckeon, R.M.A. - 02/10/2021 10:12 AM CDT Medication refill Naproxen Last filled 01/13/21 Last OV 01/13/21, 01/07/21 Future appointment None scheduled documented in this encounter Plan of Treatment Not on filedocumented as of this encounter Visit Diagnoses Diagnosis Pain Elbow Left documented in this encounter Care Teams Manager Rehab Relationship Specialty Start Date End Date Ben Arce M.D. PCP - General Family Medicine 01/13/[address] [place] [address] documented as of this encounter
--- OUTSIDE RECORDS SUMMARY | 2022-06-20 18:50 | XMS_ITS | Encounter Summary ---
:1990 Author Organization [facility] Address [address] [place] [address] Care Team Providers Name Role Phone Elsewhere, Pcp Primary Care Provider Unavailable Reason for Referral Outpatient (Routine) - Closed Specialty Diagnoses / Procedures Referred By Contact Refer red To Contact Family Medicine Zack Macdonald M.D. [facility] [address] [place] [address] Referral ID Status Reason Start Date Expiration Date Visits Requ ested Visits Authorized [id number] Closed 12/16/2020 12/16/2021 1 1 ATE BRANCH EXCHANGE SERVICE ADVISER Reason for Visit Reason Comments Follow-up arm injury Encounter Details Date Type Department Care Team Description 12/16/2020 Office Visit Department of Family Zack Macdonald, Pain Elbow Left Medicine in [place] (Primary Dx) [place], [place] [address] [place] [phone] Social History Tobacco Use Types Packs/Day Years [...] or relatives? How often do you attend mu-ism or Never 2021 anglican services? Do you belong to any clubs or No 11/20/2021 organizations such as mu-ism groups, unions, fraDanforth Pewterers or athletic groups, or school groups? How [...] at Date Recorded Female 12/02/2021 5:19 PM PRIVATE BRANCH EXCHANGE SERVICE ADVISER documented as of this encounter Last Filed Vital Signs Vital Sign Reading Time Taken Comments Blood Pressure 126/92 12/16/2020 3:16 PM PRIVATE BRANCH EXCHANGE SERVICE ADVISER Pulse 78 12/16/2020 3:11 PM PRIVATE BRANCH EXCHANGE SERVICE ADVISER Temperature 36.2 ??C (97.2 ??F) 12/16/2020 3:11 PM PRIVATE BRANCH EXCHANGE SERVICE ADVISER Respiratory Rate - - Oxygen Saturation 97% 12/16/2020 3:11 PM PRIVATE BRANCH EXCHANGE SERVICE ADVISER Inhaled Oxygen Concentration - - Weight 72.1 kg (158 lb 14.4 oz) 12/16/2020 3:11 PM PRIVATE BRANCH EXCHANGE SERVICE ADVISER Height - - Body Mass Index 31.2 12/14/2020 5:24 PM PRIVATE BRANCH EXCHANGE SERVICE ADVISER documented in this encounter Patient Instructions Patient InstructionsZack Macdonald M.D. - 12/16/2020 3:30 PM CST 1. Make an appointment in 3 weeks for follow-up. 2. Sling as needed for comfort. 3. Continue to work on range of motion with the shoulder and elbow. 4. Tylenol or ibuprofen as needed for discomfort. ATE BRANCH EXCHANGE SERVICE ADVISER documented in this encounter Progress Notes Zack [...] Tylenol or ibuprofen as needed for discomfort. ATE BRANCH EXCHANGE SERVICE ADVISER documented in this encounter Plan of Treatment Scheduled Referrals Name Type Priority Associated Diagnoses Order S [facility] Outpatient Referral Routine Expec taurus: [...] Left documented in this encounter Care Teams Technician Assistant Relationship Specialty Start Date End Date Elsewhere, Pcp PCP - General Family Medicine 01/08/18 01/12/21 documented as of this encounter
--- OUTSIDE RECORDS SUMMARY | 2022-06-20 18:50 | XMS_ITS | Encounter Summary ---
:1990 Author Organization [facility] Address [address] [place] [address] Care Team Providers Name Role Phone Elsewhere, Pcp Primary Care Provider Unavailable Encounter Details Date Type Department Care Team Description 01/07/2021 Hospital Encounter Department of Renae, Zack Hammer, Pain Elbow Left Radiology, [facility], in [place] [address] [place], [place] [address] [place] [address] [place], [place] [phone] (Work) [phone] Social History Tobacco Use Types Packs/Day Years [...] do you attend rastafarian or Never 2021 congregation services? Do you [...] Date Recorded Female 12/02/2021 5:19 PM FINANCIAL LEGAL ASSISTANT documented as of this encounter Medications at [...] Left documented in this encounter Care Teams Child Care Associate Relationship Specialty Start Date End Date Elsewhere, Pcp PCP - General Family Medicine 01/08/18 01/12/21 documented as of this encounter
--- OUTSIDE RECORDS SUMMARY | 2022-06-20 18:50 | XMS_ITS | Encounter Summary ---
:1990 Author Organization [facility] Address [address] [place] [address] Care Team Providers Name Role Phone Ben Arce M.D. Primary Care Provider Reason for Visit Reason Comments Sinusitis Sinus pressure / sinus drain age/ sinus congestion x 6 weeks Encounter Details Date Type Department Care Team Description 11/08/2021 [facility] [place], in [facility] [address] [facility] [address] [place] [phone] Social History Tobacco Use Types Packs/Day Years [...] do you attend taoist or Never 2021 christian services? Do you [...] at Date Recorded Female 12/02/2021 5:19 PM VASCULAR NEUROLOGIST documented as of this encounter Last Filed Vital Signs Vital Sign Reading Time Taken Comments Blood Pressure 126/78 11/08/2021 12:40 PM VASCULAR NEUROLOGIST Pulse 78 11/08/2021 12:40 PM VASCULAR NEUROLOGIST Temperature 37 ??C (98.6 ??F) 11/08/2021 12:40 PM VASCULAR NEUROLOGIST Respiratory Rate 16 11/08/2021 12:40 PM VASCULAR NEUROLOGIST Oxygen Saturation 98% 11/08/2021 12:40 PM VASCULAR NEUROLOGIST Inhaled Oxygen Concentration - - Weight 72.1 kg (158 lb 14.4 oz) 11/08/2021 12:40 PM VASCULAR NEUROLOGIST Height 155 cm (5' 1.02) 11/08/2021 12:40 PM VASCULAR NEUROLOGIST Body Mass Index 30 11/08/2021 12:40 PM VASCULAR NEUROLOGIST documented in this encounter Patient Instructions Patient InstructionsArely Ferrell APRN, C.N.P. - 11/08/2021 12:30 PM VASCULAR NEUROLOGIST Steam, frequent showers to break up mucus in back of throat. Follow up if not gradually improving over the next 7-10 days or sooner if symptoms would worsen. ULAR NEUROLOGIST AttachmentsThe following attachments cannot be sent through Care Everywhere. Sinusitis (Rhinosinusitis) (Welsh)documented in this encounter Progress Notes Arely Ferrell [...] discussed and reviewed in AVS. Discharged from [facility] in stable condition. I personally spent 20 minutes in total care of the patient today. ULAR NEUROLOGIST documented in this encounter Plan of Treatment Not on filedocumented as of this encounter Visit Diagnoses Diagnosis Sinusitis - Primary documented in this encounter Care Teams Group Exercise Instructor Relationship Specialty Start Date End Date Ben Arce M.D. PCP - General Family Medicine 01/13/[address] [place] [address] documented as of this encounter
--- OUTSIDE RECORDS SUMMARY | 2022-06-20 18:50 | XMS_ITS | Encounter Summary ---
:1990 Author Organization [facility] Address [address] [place] [address] Care Team Providers Name Role Phone Ben Arce M.D. Primary Care Provider Encounter Details Date Type Department Care Team Description 11/24/2021 Orders Only Department of Robert, Erika Hammer, Abnormal L aboratory Obstetrics and JOURNALISTS AND OTHER WRITERS, C.N.P., Results (Samina pendleton Dx) Gynecology in [place], [place] [address] [place] [phone] Social History Tobacco Use Types Packs/Day Years [...] do you attend zoroastrian or Never 2021 faith services? Do you [...] at Date Recorded Female 12/02/2021 5:19 PM STEM CUTTER documented as of this encounter Plan of Treatment Not on filedocumented as of this encounter Results (ABNORMAL) hCG (Human Chorionic Gonadotropin), Quantitative, (11/28/2021 4:00 PM STEM CUTTER) P athologist Signature HCG, 94 (H) <5 IU/L 11/28/2021 NPRG Quantitative, 7:47 PM STEM CUTTER , P Comment: Biotin has been identified by the meir toro as a potential interfering substance. ??Higher concentr ations of biotin may be found in multivitamins, hair/nail supple ments, and workout supplements. ??If the result does not [facility] clinical observations, repeat testing after patient refrains fr om the use of supplements for at least 12 hours. Specimen Anatomical Collection Method Collection Time Receive d Time (Source) Location / / Volume Laterality Blood (Blood, 11/28/2021 4:00 PM 11/28/19 22 6:56 Venous) STEM CUTTER PM STEM CUTTER Erika Jones APRN, C.N.P., M.S.N. LAB BLOOD ADD-ON Performing Organization Address City/State/ZIP Code Phon e Number [facility]- [address] [place], [place] [address] [place] [address] [place] [address] [facility] [address] [place] documented in this encounter Visit Diagnoses Diagnosis Abnormal Laboratory Results - Primary documented in this encounter Care Teams Risk Control Officer Relationship Specialty Start Date End Date Ben Arce M.D. PCP - General Family Medicine 01/13/[address] [place] [phone] documented as of this encounter
--- OUTSIDE RECORDS SUMMARY | 2022-06-20 18:50 | XMS_ITS | Encounter Summary ---
:1990 Author Organization [facility] Address [address] [place] [address] Care Team Providers Name Role Phone Elsewhere, Pcp Primary Care Provider Unavailable Encounter Details Date Type Department Care Team Description 01/07/2021 Clinical Communication Department of [facility] Donya Lind [facility] in [facility], C.N.P.[place], [place] D.N.P. [address] [place] [phone] Social History Tobacco Use Types Packs/Day Years [...] do you attend pentecostal or Never 2021 temple services? Do you [...] Date Recorded Female 12/02/2021 5:19 PM DIGITAL CAMPAIGN SPECIALIST documented as of this encounter Miscellaneous [...] patient Please call [place]land before patient arrives... [phone] documented in this encounter Plan of Treatment Not on filedocumented as of this encounter Visit Diagnoses Not on filedocumented in this encounter Care Teams Accounting Reconciliation Clerk Relationship Specialty Start Date End Date Elsewhere, Pcp PCP - General Family Medicine 01/08/18 01/12/21 documented as of this encounter
--- OUTSIDE RECORDS SUMMARY | 2022-06-20 18:50 | XMS_ITS | Encounter Summary ---
:1990 Author Organization [facility] Address [address] [place] [address] Care Team Providers Name Role Phone Elsewhere, Pcp Primary Care Provider Unavailable Reason for Referral Physical Therapy (Routine) - Denied Specialty Diagnoses / Procedures Referred By Contact Refer red To Contact Diagnoses Tendonitis Loulou Teresa APRN, [facility] Procedures PT Evaluate and treat C.N.P. [address] [place] [address] Referral ID Status Reason Start Date Expiration Date Visits Requ ested Visits Authorized [id number] Denied 06/08/2020 10/21/2020 1 0 Reason for Visit Reason Comments Post Ed Visit Follow-up Encounter Details Date Type Department Care Team Description 06/08/2020 Office Visit Department of [facility] Loulou Teresa Te ndonitis (Primary Medicine in [facility] SPLITTER MACHINE, C.N.P. Dx) [place], [place] [address] [place] [phone] Social History Tobacco Use Types Packs/Day Years [...] do you attend caodaism or Never 2021 rastafarian services? Do you [...] Date Recorded Female 12/02/2021 5:19 PM MANAGER IT TRAINING documented as of this encounter Last Filed [...] Primary documented in this encounter Care Teams Cleaner Signs Relationship Specialty Start Date End Date Elsewhere, Pcp PCP - General Family Medicine 01/08/18 01/12/21 documented as of this encounter
--- OUTSIDE RECORDS SUMMARY | 2022-06-20 18:50 | XMS_ITS | Encounter Summary ---
:1990 Author Organization [facility] Address [address] [place] [address] Care Team Providers Name Role Phone Ben Arce M.D. Primary Care Provider Reason for Visit Reason Comments Med Refill Encounter Details Date Type Department Care Team Description 05/23/2021 Refill Department of Family Medicine Ben Maynard M.D. Med Refill in [facility] [address] [place] [phone] (Wo rk) Social History Tobacco Use Types [...] do you attend sikh or Never 2021 cheondoism services? Do you [...] at Date Recorded Female 12/02/2021 5:19 PM ADMINISTRATIVE SERVICES ASSISTANT documented as of this encounter Miscellaneous Notes Telephone Encounter - Rylie Le RMaribellMKalpesh - 05/23/2021 1:08 PM CDT Medication Name: cetirizine Last Office Visit: 05/18/21 Future Office Visit: none Last Blood Pressure: (39502) 05/18/21 Last Set of Labs: 01/13/21 Patient is restricted to Dr. Ritter for all refills documented in this encounter Plan of Treatment Not on filedocumented as of this encounter Visit Diagnoses Diagnosis Rhinitis Allergic documented in this encounter Care Teams Chemical Engineering Technologist Relationship Specialty Start Date End Date Ben rAce M.D. PCP - General Family Medicine 01/13/[address] [place] [address] documented as of this encounter
--- OUTSIDE RECORDS SUMMARY | 2022-06-20 18:50 | XMS_ITS | Encounter Summary ---
:1990 Author Organization [facility] Address [address] [place] [address] Care Team Providers Name Role Phone Ben Arce M.D. Primary Care Provider Reason for Referral Specialty Diagnoses / Procedures Referred By Contact Refer red To Contact Ben Arce M.D. [facility] Region [address] [place] [address] Referral ID Status Reason Start Date Expiration Date Visits Requ ested Visits Authorized CLOSER Encounter Details Date Type Department Care Team Description 11/20/2021 Orders Only [facility] PCP [facility] MNT Kimberly Arce M.D. [address] [place], [place] [phone] (Wo rk) Social History [...] do you attend pentecostalism or Never 2021 yazidism services? Do you belong to any clubs [...] at Date Recorded Female 12/02/2021 5:19 PM BACK CLOSER documented as of this encounter Plan of Treatment Scheduled Referrals Name Type Priority Associated Order Schedule Diagnoses Covid immunization Outpatient Referral Routine Ex pected: office visit Booster 022 (Approximate), Expires: 11/20/2022 documented as of this encounter Visit Diagnoses Not on filedocumented in this encounter Care Teams Payroll And Benefits Specialist Relationship Specialty Start Date End Date Ben Arce M.D. PCP - General Family Medicine 01/13/[address] [place] [facility] [place] [phone] documented as of this encounter
--- OUTSIDE RECORDS SUMMARY | 2022-06-20 18:50 | XMS_ITS | Encounter Summary ---
:1990 Author Organization [facility] Address [address] [place] [address] Care Team Providers Name Role Phone Elsewhere, Pcp Primary Care Provider Unavailable Reason for Visit Reason Comments Wrist Pain 30 y/o f presents with R wri st and hand pain since . Pt says is sharp and radiates up her ar m, no injury, has been taking advil with some relief. Encounter Details Date Type Department Care Team Description 05/30/2020 Emergency [place] [facility] Sigrid Forbes endofrantz Forearm Department D, M.D. (Primary Dx) [address] [place] [phone] (Wo rk) Social History Tobacco Use Types [...] or relatives? How often do you attend judaism or Never 2021 sikh services? Do you belong to any clubs or No 11/20/2021 organizations such as judaism groups, unions, fraternal or athletic groups, or [...] at Date Recorded Female 12/02/2021 5:19 PM TELEGRAPHIC TYPEWRITER MECHANIC documented as of this encounter Last [...] Body Mass Index 30.81 12/26/2019 9:26 AM TELEGRAPHIC TYPEWRITER MECHANIC documented in this encounter Discharge Instructions [...] clinic by calling the appointment center at [phone]. Thank you for choosing [facility] for your care. It was a [...] Forbes M.D. - 05/30/2020 12:11 PM CDT [facility] EMERGENCY DEPARTMENT ENCOUNTER Patient Name: [...] Primary documented in this encounter Care Teams Technician Semiconductor Development Relationship Specialty Start Date End Date Elsewhere, Pcp PCP - General Family Medicine 01/08/18 01/12/21 documented as of this encounter
--- OUTSIDE RECORDS SUMMARY | 2022-06-20 18:50 | XMS_ITS | Encounter Summary ---
:1990 Author Organization [facility] Address [address] [place] [address] Care Team Providers Name Role Phone Ben Arce M.D. Primary Care Provider Reason for Visit Reason Comments Communication New script Encounter Details Date Type Department Care Team Description 10/06/2021 Clinical Communication Department of Ben Arce Comm unication (New Family Medicine in M.DMaribell script) [place] [address] [facility] [address] [facility] [phone] [phone] Social History Tobacco Use Types Packs/Day Years [...] do you attend denominational or Never 2021 shinto services? Do you [...] Date Recorded Female 12/02/2021 5:19 PM GLOBAL CLIMATE CHANGE RESEARCHER documented as of this encounter Miscellaneous Notes Telephone Encounter - Babita Ramachandran R.N. - 10/06/2021 3:58 PM GLOBAL CLIMATE CHANGE RESEARCHER Portal message sent to patient that if she is on restricted plan she needs to contact her insurance for an exception. AL CLIMATE CHANGE RESEARCHER Telephone Encounter - Alana Perkins L.P.N. - 10/06/2021 3:02 PM GLOBAL CLIMATE CHANGE RESEARCHER Spoke to pt and informed her that we would need to know which medication for eye drops was ordered so that Dr Arce could send it in. Pt states she has no idea what it is. Informed pt to find out which medication it is and call us back with that info. AL CLIMATE CHANGE RESEARCHER Telephone Encounter - Migdalia Pompa - 10/06/2021 [...] Please call patient with plan. Thank you. AL CLIMATE CHANGE RESEARCHER documented in this encounter Plan of Treatment Not on filedocumented as of this encounter Visit Diagnoses Not on filedocumented in this encounter Care Teams Tool Design Draftsperson Relationship Specialty Start Date End Date Ben Arce M.D. PCP - General Family Medicine 01/13/[address] [place] [phone] documented as of this encounter
--- OUTSIDE RECORDS SUMMARY | 2022-06-20 18:50 | XMS_ITS | Encounter Summary ---
:1990 Author Organization [facility] Address [address] [place] [address] Care Team Providers Name Role Phone Ben Arce M.D. Primary Care Provider Encounter Details Date Type Department Care Team Description 05/18/2021 Hospital Encounter Department of Alexander Rendon, Pain Hand Right Radiology, [facility], in [place] [address] [place], [place] [address] [place] [address] [place], [place] [phone] (Work) [phone] Social History Tobacco Use Types Packs/Day Years [...] do you attend yarsani or Never 2021 mandaen services? Do you [...] Date Recorded Female 12/02/2021 5:19 PM SPECIAL COLLECTIONS LIBRARIAN documented as of this encounter Medications at [...] Right documented in this encounter Care Teams Commercial Photographer Relationship Specialty Start Date End Date Ben Arce M.D. PCP - General Family Medicine 01/13/[address] [place] [address] documented as of this encounter
--- OUTSIDE RECORDS SUMMARY | 2022-06-20 18:50 | XMS_ITS | Encounter Summary ---
:1990 Author Organization [facility] Address [address] [place] [address] Care Team Providers Name Role Phone Ben Arce M.D. Primary Care Provider Reason for Referral Outpatient (Routine) - Closed Specialty Diagnoses / Procedures Referred By Contact Refer red To Contact Obstetrics and Diagnoses Examination Test With Positive Result (HCC) Terrence Swenson M.D. [facility] Gynecology [address] [address] Referral ID Status Reason Start Date Expiration Date Visits Requ ested Visits Authorized [id number] Closed 12/01/2021 12/01/2022 1 1 ECTIVE BARGAINING SPECIALIST Specialty Diagnoses / Procedures Referred By Contact Refer red To Contact Terrence Swenson M.D. [facility] Region [address] [place] [phone] Referral ID Status Reason Start Date Expiration Date Visits Requ ested Visits Authorized ECTIVE BARGAINING SPECIALIST Encounter Details Date Type Department Care Team Description 12/01/2021 Clinical Communication Department of Terrence Swenson Obstetrics and [place] Gynecology in [address] [place], [place] [address] [place] [address] [place], [place] [phone] (Work) [phone] Social History Tobacco Use Types Packs/Day Years [...] do you attend holiness or Never 2021 baptism services? Do you [...] at Date Recorded Female 12/02/2021 5:19 PM COLLECTIVE BARGAINING SPECIALIST documented as of this encounter Miscellaneous [...] following references were used: Nursing Clinical Judgement ECTIVE BARGAINING SPECIALIST Telephone Encounter - Anisa White - 12/01/2021 12:26 PM CST Reason for Communication: Patient calling, had a positive home test and a clinic confirmedtest. LMP unknown. Patient is looking to transfer care from [place] Current Can Nursing/Provider leave a detailed message?: yes Did the patient refuse triage through Nurse line? (for symptom based concerns): Action Needed: Name of Medication (if relevant): Please send all scheduling replies to scheduling pool. ECTIVE BARGAINING SPECIALIST documented in this encounter Plan of [...] US OB First Trimester (12/20/2021 10:50 AM COLLECTIVE BARGAINING SPECIALIST) Anatomical Region Laterality Modality Body, Ultrasound OB RST LOS, Ultrasound ARZ LOS N/A Ultrasound Specimen (Source) Anatomical Collection Method Collection Time Re ceived Time Location / / Volume Laterality 12/20/2021 12:31 PM COLLECTIVE BARGAINING SPECIALIST Impressions 12/20/2021 12:34 PM COLLECTIVE BARGAINING SPECIALIST Single, viable, intrauterine gestation w ith CARLOS of August 14, 2022 (not consistent with menstrual dating). Narrative 12/20/2021 12:34 PM COLLECTIVE BARGAINING SPECIALIST EXAM: US OB FIRST TRIMESTER COMPARISON: None Physician: Dr. Swenson FINDINGS: Gestational age and CARLOS by LMP or OB/EHR assignment: 7 w 3 d, CARLOS: 08/05/2022 INTRAUTERINE Pole: Normal, [place]-R[place] Length: 0 .50 cm Gestational Sac: Normal [...] 3 d, CARLOS: 08/05/2022 INTRAUTERINE Pole: Normal, [place]-R[place] Length: 0 .50 cm Gestational Sac: Normal [...] (HCC) documented in this encounter Care Teams Professor Of Economics Relationship Specialty Start Date End Date Ben Arce M.D. PCP - General Family Medicine 01/13/[address] [place], [place] [address] documented as of this encounter
--- OUTSIDE RECORDS SUMMARY | 2022-06-20 18:50 | XMS_ITS | Encounter Summary ---
:1990 Author Organization [facility] Address [address] [place] [address] Care Team Providers Name Role Phone Ben Arce M.D. Primary Care Provider Reason for Referral Outpatient (Routine) - Authorized Specialty Diagnoses / Procedures Referred By Contact Refer red To Contact Diagnoses Subdermal Implantable Contraceptive Removal Rylie Mcdowell M.D. [facility] Procedures Subdermal Contraceptive Device [facility] [place] [address] Referral ID Status Reason Start Date Expiration Date Visits V isits Requested Authorized [id number] Authorized 12/01/2021 12/01/2022 1 1 OR DYNAMICS CRM DEVELOPER Reason for Visit Reason Comments nexplanon removal Early . LMP 10/29/21. Pt will see Dr. Swenson in [place] with [facility] for . Appointment Request (Routine) - Closed Specialty Diagnoses / Procedures Referred By Contact Refer red To Contact Obstetrics and Gynecology Referral ID Status Reason Start Date Expiration Date Visits Requ ested Visits Authorized [id number] Closed 11/29/2021 11/29/2022 1 1 Encounter Details Date Type Department Care Team Description 12/01/2021 Office Visit Department of Rylie Mcdowell Subdermal Imp lancesar Obstetrics and [place] Contraceptive Removal Gynecology in [address] (Primary Dx) [place], [place] [address] [facility] [address] [place], [place] [phone] [phone] (Work) [phone] Social History Tobacco Use Types Packs/Day Years [...] you attend jehovah's witness or Never 2021 rastafari services? Do you [...] at Date Recorded Female 12/02/2021 5:19 PM SENIOR DYNAMICS CRM DEVELOPER documented as of this encounter Last Filed Vital Signs Vital Sign Reading Time Taken Comments Blood Pressure 155/91 12/01/2021 2:56 PM SENIOR DYNAMICS CRM DEVELOPER Pulse 84 12/01/2021 2:56 PM SENIOR DYNAMICS CRM DEVELOPER Temperature 36.2 ??C (97.2 ??F) 12/01/2021 2:56 PM SENIOR DYNAMICS CRM DEVELOPER Respiratory Rate - - Oxygen Saturation - - Inhaled Oxygen Concentration - - Weight 69.5 kg (153 lb 4.8 oz) 12/01/2021 2:56 PM SENIOR DYNAMICS CRM DEVELOPER Height - - Body Mass Index 28.94 11/08/2021 12:40 PM SENIOR DYNAMICS CRM DEVELOPER documented in this encounter Progress Notes Rylie Mcdowell M.D. - 12/01/2021 3:15 PM CST SUBJECTIVE CHIEF COMPLAINT / REASON FOR VISIT Chief Complaint Patient presents with ??? nexplanon removal Early . LMP 10/29/21. Pt will see Dr. Swenson in [place] with [facility] for . HISTORY OF PRESENT CONDITION [...] and Family: Twice a week ??? Attends Church Services: Never ??? Active Member of Clubs [...] levels - plan US once HCG above [id number] - Patient is following up at [facility] Diet and exercise, PNV and folate, smoking [...] are no discontinued medications. Rylie Mcdowell M.D. OR DYNAMICS CRM DEVELOPER documented in this encounter Procedure Notes Rylie [...] lidocaine POST-PROCEDURE DETAILS Complications: no apparent complications FIBER DESIGNER OR DYNAMICS CRM DEVELOPER documented in this encounter Plan of Treatment Not on filedocumented as of this encounter Procedures Procedure Name Priority Date/Time Associated Diagnosis Comme nts LA RMVL DRUG IMPL Routine 12/01/2021 4:11 PM Subdermal Implant able Results for this SENIOR DYNAMICS CRM DEVELOPER Contraceptive Removal proced ure are in the results section. documented in this encounter Results LA RMVL DRUG IMPL (12/01/2021 4:11 PM SENIOR DYNAMICS CRM DEVELOPER) Narrative [facility]ODAL - 12/01/2021 4:11 PM SENIOR DYNAMICS CRM DEVELOPER Rylie Mcdowell M.D. ? 12/01/2021 ??4:12 PM [...] Primary documented in this encounter Care Teams Changeover Operator Relationship Specialty Start Date End Date Ben Arce M.D. PCP - General Family Medicine 01/13/[address] [place] [address] documented as of this encounter
--- OUTSIDE RECORDS SUMMARY | 2022-06-20 18:50 | XMS_ITS | Encounter Summary ---
:1990 Author Organization [facility] Address [address] [place] [address] Care Team Providers Name Role Phone Elsewhere, Pcp Primary Care Provider Unavailable Reason for Visit Reason Comments Sinus Symptoms ongoing Encounter Details Date Type Department Care Team Description 07/02/2020 Office Visit Urgent Care, [facility], Sin usitis Acute [place], in [place], FATOU, C.N.P., (Samina pendleton Dx) [place] D.N.P. [address] [place] [address] [phone] Social History Tobacco Use Types Packs/Day Years [...] do you attend judaism or Never 2021 evangelical services? Do you [...] Recorded Female 12/02/2021 5:19 PM SCREEN PRINTING PASTER documented as of this encounter Last Filed [...] bacteria. Still, most people seen in the [facility] for upper respiratory infectionor sinusitis symptoms [...] and replace them as recommended by the water softener servicer. Note: Having your humidity too high (more [...] help open sinuses and allow easier breathing. Uvdv-dzt-gwalmoz treatments* In addition to the previous suggestions, you may get relief for nasal and sinus obstruction or discomfort by taking non-prescription, kdah-sne-znqbqbt (OTC) medications. Many OTC medications combine a [...] with your health care provider. ? 2008 [facility] [employer] ([employer]). All rights reserved. [id number] documented in this encounter Progress Notes Esther [...] has been using Flonase nasal spray and guns-cok-vwqyutm decongestant and Tylenol or ibuprofen for symptoms. [...] a humidifier in the room. May use lqyt-vro-gutmqst Flonase to help with congestion. Drink warm [...] Primary documented in this encounter Care Teams Education General Manager Relationship Specialty Start Date End Date Elsewhere, Pcp PCP - General Family Medicine 01/08/18 01/12/21 documented as of this encounter
--- OUTSIDE RECORDS SUMMARY | 2022-06-20 18:50 | XMS_ITS | Encounter Summary ---
:1990 Author Organization [facility] Address [address] [place] [address] Care Team Providers Name Role Phone Elsewhere, Pcp Primary Care Provider Unavailable Reason for Visit Reason Comments Amox Encounter Details Date Type Department Care Team Description 10/05/2020 Clinical Communication Department of Family Aguila Arias M.D. [facility] Medicine in [place] [address] [place], [place] [address] [facility] [address] [place], [place] [phone] (Work) [phone] Social History Tobacco Use Types Packs/Day Years [...] do you attend sabianism or Never 2021 temple services? Do you [...] at Date Recorded Female 12/02/2021 5:19 PM ANALYTICS DIRECTOR documented as of this encounter Miscellaneous Notes Addendum Note - Aguila Arce M.D. - 10/05/2020 4:11 PM ANALYTICS DIRECTOR Addended by: AGUILA ARCE on: 10/05/2020 04:11 PM Modules accepted: Orders YTICS DIRECTOR Addendum Note - Dali Bird R.M.A. - 10/05/2020 4:09 PM ANALYTICS DIRECTOR Addended by: DALI BIRD on: 10/05/2020 04:09 PM Modules accepted: Orders YTICS DIRECTOR Telephone Encounter - Dali Bird R.M.A. - 10/05/2020 4:03 PM ANALYTICS DIRECTOR Pt's sister is calling on behalf of sister stating that she is restricted to Dr Arce and needs her amox filled. She saw the dentist today, Dr Kelsea Gamino and he prescribed Amox 500 mg. Take 2 tabs STAT and one tab TID till gone #31. YTICS DIRECTOR documented in this encounter Plan of Treatment Not on filedocumented as of this encounter Visit Diagnoses Not on filedocumented in this encounter Care Teams Litigation Claim Representative Relationship Specialty Start Date End Date Elsewhere, Pcp PCP - General Family Medicine 01/08/18 01/12/21 documented as of this encounter
--- OUTSIDE RECORDS SUMMARY | 2022-06-20 18:50 | XMS_ITS | Encounter Summary ---
:1990 Author Organization [facility] Address [address] [place] [address] Care Team Providers Name Role Phone Ben Arce M.D. Primary Care Provider Encounter Details Date Type Department Care Team Description 01/21/2021 Orders Only [facility] PCP TH Teja Zuniga Jr., M.D. [address] [place] [address] [place] [phone] (Wo rk) Social History Tobacco [...] do you attend congregation or Never 2021 cheondoism services? Do you [...] at Date Recorded Female 12/02/2021 5:19 PM FINISH MENDER documented as of this encounter Plan of Treatment Not on filedocumented as of this encounter Visit Diagnoses Not on filedocumented in this encounter Care Teams Electrical Solderer Relationship Specialty Start Date End Date Ben Arce M.D. PCP - General Family Medicine 01/13/[address] [facility] [place] [address] documented as of this encounter
--- OUTSIDE RECORDS SUMMARY | 2022-06-20 18:50 | XMS_ITS | Encounter Summary ---
:1990 Author Organization [facility] Address [address] [place] [address] Care Team Providers Name Role Phone Elsewhere, Pcp Primary Care Provider Unavailable Reason for Referral Outpatient (Routine) - Closed Specialty Diagnoses / Procedures Referred By Contact Refer red To Contact Diagnoses [facility] Ben Arce M.D. [address] [place] [address] Referral ID Status Reason Start Date Expiration Visits Visits Date Requested Authorized [id number] Closed Continuity of 10/06/2020 10/06/2021 1 1 Care DREN'S CHOIR DIRECTOR Reason for Visit Reason Comments Communication referral Encounter Details Date Type Department Care Team Description 10/06/2020 Clinical Communication Department of Ben Arce Comm unication Family Medicine in [place] (referral ) [place] [address] [facility] [address] [facility] [phone] Social History Tobacco Use Types Packs/Day Years [...] do you attend anglican or Never 2021 spiritism services? Do you belong to any clubs [...] Date Recorded Female 12/02/2021 5:19 PM CHILDREN'S CHOIR DIRECTOR documented as of this encounter Miscellaneous Notes Telephone Encounter - Wilma Montelongo R.N. - 10/06/2020 4:17 PM CST Pt advised that referral was faxed to [facility]: [phone] DREN'S CHOIR DIRECTOR Telephone Encounter - Ben Arce M.D. - 10/06/2020 2:55 PM CST External referral order placed. Please fax for patient. Thanks. It should be printed in the office printer. Thanks. DREN'S CHOIR DIRECTOR Telephone Encounter - Ilene Gautam - 10/06/2020 [...] to send referral for her to see [facility] Dentist in [place]. She is on a restricted program through insurance and they will only cover this if referred by Dr. Arce. She is having a tooth pulled on Sunday. Please fax to fax #[phone]. Please call her to let her know if this is done. Thank you. I will send this information to the appropriate staff member who will look into your concern. Is there anything else I can help you with today? Thank you for calling [facility]. DREN'S CHOIR DIRECTOR documented in this encounter Plan of Treatment Not on filedocumented as of this encounter Visit Diagnoses Diagnosis [facility] - Primary documented in this encounter Care Teams Loan Administrator Relationship Specialty Start Date End Date Elsewhere, Pcp PCP - General Family Medicine 01/08/18 01/12/21 documented as of this encounter
--- OUTSIDE RECORDS SUMMARY | 2022-06-20 18:50 | XMS_ITS | Encounter Summary ---
:1990 Author Organization [facility] Address [address] [place] [address] Care Team Providers Name Role Phone Elsewhere, Pcp Primary Care Provider Unavailable Reason for Visit Reason Comments Earache Encounter Details Date Type Department Care Team Description 01/02/2021 Nurse Triage Department of [facility] Angella Herbert, Ear ache Medicine in [place], M.S.N., R.N. [place] [address] [place] [address] 1976 Social History Tobacco Use Types Packs/Day [...] do you attend hinduism or Never 2021 evangelical services? Do you [...] Date Recorded Female 12/02/2021 5:19 PM SERVICE OFFICER documented as of this encounter Miscellaneous Notes [...] medication (e.g., ibuprofen or acetaminophen) Protocols used: [id number] Care Advice Patient/Caregiver understands and will follow care advice?: Yes, able to teach back SEE PCP WITHIN 4 HOURS (OR PCP TRIAGE): * IF OFFICE WILL BE OPEN: You need to be seen within the next 3 or 4 hours. Call your doctor (or TRAVELING PHLEBOTOMIST/PA) now or as soon as the office [...] need to be seen. Your doctor (or TRAVELING PHLEBOTOMIST/PA) will want to talk with you to [...] on filedocumented in this encounter Care Teams Cup Machine Operator Relationship Specialty Start Date End Date Elsewhere, Pcp PCP - General Family Medicine 01/08/18 01/12/21 documented as of this encounter
--- OUTSIDE RECORDS SUMMARY | 2022-06-20 18:50 | XMS_ITS | Encounter Summary ---
:1990 Author Organization [facility] Address [address] [place] [address] Care Team Providers Name Role Phone Ben Arce M.D. Primary Care Provider Encounter Details Date Type Department Care Team Description 11/28/2021 Hospital Encounter Department of Erika Jones Laboratory Laboratory Medicine CJ HammerN, Results in [place], C.N.PMaribell, M.S.N. [place] [address] [place] [phone] Social History Tobacco Use Types Packs/Day Years [...] do you attend episcopal or Never 2021 presybeterian services? Do you [...] at Date Recorded Female 12/02/2021 5:19 PM VIDEO EDITOR documented as of this encounter Medications at [...] Abnormal Laboratory Results for this GONADOTROPIN (HCG), VIDEO EDITOR Results procedur e are in ROBERTA, the results section. documented in this encounter Results (ABNORMAL) hCG (Human Chorionic Gonadotropin), Quantitative, (11/28/2021 4:00 PM VIDEO EDITOR) P athologist Signature HCG, 94 (H) <5 IU/L 11/28/2021 NPRG Quantitative, 7:47 PM VIDEO EDITOR , P Comment: Biotin has been identified [...] (Blood, 11/28/2021 4:00 PM 11/28/19 6:56 Venous) VIDEO EDITOR PM VIDEO EDITOR Erika Jones APRN, C.N.P., M.S.N. LAB BLOOD ADD-ON Performing Organization Address City/State/ZIP Code Phon e Number [facility]- [address] [place], [place] [address] [place] [address] [place] [address] [address] [facility] documented in this encounter Visit Diagnoses Diagnosis Abnormal Laboratory Results documented in this encounter Care Teams Operator Receptionist Relationship Specialty Start Date End Date Ben Arce M.D. PCP - General Family Medicine 01/13/[address] [place] [phone] documented as of this encounter
--- OUTSIDE RECORDS SUMMARY | 2022-06-20 18:50 | XMS_ITS | Encounter Summary ---
:1990 Author Organization [facility] Address [address] [place] [address] Care Team Providers Name Role Phone Ben Arce M.D. Primary Care Provider Reason for Visit Reason Comments Nausea OTHER Breast pain Vomiting Positive at home test X 4 Encounter Details Date Type Department Care Team Description 11/24/2021 Comprehensive Visit Department of Grant Jones ncsharyn Test (Primary Dx); Obstetrics and J, WEIGHT INSPECTOR, Counseling Bi rth Control; Gynecology in [facility] C.N.P., M.S.N. Pap Smear Examination [place], [place] [address] [place] [phone] Social History Tobacco Use Types Packs/Day Years [...] do you attend faith or Never 2021 gnosticism services? Do you [...] Date Recorded Female 12/02/2021 5:19 PM WOOD CUTTER documented as of this encounter Last Filed Vital Signs Vital Sign Reading Time Taken Comments Blood Pressure 166/67 11/24/2021 1:50 PM WOOD CUTTER Pulse 118 11/24/2021 1:49 PM WOOD CUTTER Temperature 37.2 ??C (99 ??F) 11/24/2021 1:49 PM WOOD CUTTER Respiratory Rate - - Oxygen Saturation - - Inhaled Oxygen Concentration - - Weight 71.6 kg (157 lb 12.8 oz) 11/24/2021 1:49 PM WOOD CUTTER Height - - Body Mass Index 29.79 11/08/2021 12:40 PM WOOD CUTTER documented in this encounter Progress Notes Grant [...] STD testing. Grant Jones APRN, Reji.NDany, M.S.N. CUTTER documented in this encounter Miscellaneous Notes Addendum Note - Grant Jones APRN, Reji.N.P., M.S.N. - 11/24/2021 1:15 PM WOOD CUTTER Addended by: GRANT JONES on: 11/29/2021 08:00 AM Modules accepted: Orders CUTTER documented in this encounter Plan of Treatment Not on filedocumented as of this encounter Procedures Procedure Name Priority Date/Time Associated Diagnosis Comme nts THINPREP W/HPV Routine 11/24/2021 4:49 PM Pap Smear Results for this CO-TEST SCREEN WOOD CUTTER Examination procedure are in the results section. HUMAN CHORIONIC Routine 11/24/2021 2:00 PM Test Resu lts for this GONADOTROPIN (HCG), WOOD CUTTER procedur e are in ROBERTA, the results section. HPV WITH GENOTYPING, Routine 11/24/2021 1:53 PM R esults for this PCR, THINPREP WOOD CUTTER procedure are in the results section. TEST, POCT, Routine 11/24/2021 1:14 PM Samira t Results for this U (LAB) WOOD CUTTER procedure are i n the results section. documented in this encounter Results ThinPrep w/HPV Co-Test Screen (11/24/2021 4:49 PM WOOD CUTTER) Component Value Ref Test Analysis Performed Pathologis t Range Method Time At Signature 11/28/2021 HK 3:47 PM WOOD CUTTER Report DEBRA Boles(ASCP) 11/28/2021 HK electronically 3:47 PM signed by WOOD CUTTER I verify that I have examined all relevant slides/materials for the specimen(s) and rendered or confirmed the diagnosis. Gross Description Received specimen 11/28/2021 HK Y in a ThinPrep 3:47 PM vial. WOOD CUTTER Pap Test Source Cervical/Endocervi 11/28/2021 HKCY lizbeth 3:47 PM WOOD CUTTER Interpretation Cervical/Endocervical ??(ThinPrep): 11/28/2021 HKCY 3:47 PM Satisfactory for Evaluation WOOD CUTTER Negative for Intraepithelial Lesion or Malignancy Shift [...] Laterality Varies 11/24/2021 4:49 PM 6:36 (Cervix/Endocerv WOOD CUTTER AM WOOD CUTTER ix) Narrative This result has an attachment that is no t available. Reji Polanco APRN.N.P., M.S.N. LAB PAP PATHDX ORD ERABLES Performing Organization Address City/State/ZIP Code Phon e Number [facility]- [address] [place] [address] [facility] HK[facility] [place] [address] [facility] [address] [facility] (ABNORMAL) hCG (Human Chorionic Gonadotropin), Quantitative, (11/24/2021 2:00 PM WOOD CUTTER) athologist Signature HCG, 6.9 (H) <5 IU/L 11/24/2021 NPRG Quantitative, 2:22 PM WOOD CUTTER , P Comment: Biotin has been identified by the meir toro as a potential interfering substance. ??Higher concentr ations of biotin may be found in multivitamins, hair/nail supple ments, and workout supplements. ??If the result does not [facility] clinical observations, repeat testing after patient refrains fr om the use of supplements for at least 12 hours. Specimen Anatomical Collection Method Collection Time Receive d Time (Source) Location / / Volume Laterality Blood (Blood, 11/24/2021 2:00 PM 11/24/19 2:01 Venous) WOOD CUTTER PM WOOD CUTTER Grant Jones APRN, C.N.P., M.S.N. LAB BLOOD ADD-ON Performing Organization Address City/State/ZIP Code Phon e Number [facility]- [address] [place], [place] [address] [place] [address] [place] [address] [place] [address] [place] HPV with Genotyping, PCR, ThinPrep (11/24/2021 1:53 PM WOOD CUTTER) athologist Signature HPV with Negative Negative 11/25/2021 MKTO Genotyping, 3:27 PM WOOD CUTTER ThinPrep, PCR Comment: Negative for high risk HPV by nucleic ac id amplification. ??The following high risk HPV types were not detected: 16, 18, 31, 33, 35, 39, 45, 51, 52, 56, 58, 59, 66, and 68 Specimen Anatomical Collection Method Collection Time Receive d Time (Source) Location / / Volume Laterality Varies 11/24/2021 1:53 PM 6:36 WOOD CUTTER AM WOOD CUTTER Reji Polanco APRN.N.Anna., M.S.N. LAB MICROBIOLOGY - GENERAL ORDERABLES Performing Organization Address City/[facility]/ZIP Code Phon e Number [facility]- [address] [place] [address] [place] [address] System in [place] [address] [facility] Test, POCT, Urine (lab) (11/24/2021 1:14 PM WOOD CUTTER) P athologist Signature Negative 11/24/2021 NPRG Test, POCT, U 1:21 PM WOOD CUTTER Specimen Anatomical Collection Method Collection Time Receive d Time (Source) Location / / Volume Laterality Urine (Urine, 11/24/2021 1:14 PM 11/24/19 1:14 Clean Catch) WOOD CUTTER PM WOOD CUTTER Grant Jones APRN, C.N.P., M.S.N. LAB POCT ORDERABLE S - DEVICE Performing Organization Address City/[facility]/ZIP Code Phon e Number [facility]- [address] [place] [address] [place] [address] LAB NPRG [facility] [place] [address] documented in this encounter Visit Diagnoses Diagnosis Test - Primary Counseling Control Pap Smear Examination documented in this encounter Care Teams Fashion Marketer Relationship Specialty Start Date End Date Ben Arce M.D. PCP - General Family Medicine 01/13/[address] [place] [phone] documented as of this encounter
--- OUTSIDE RECORDS SUMMARY | 2022-06-20 18:51 | XMS_ITS | Encounter Summary ---
:1990 Author Organization [facility] Address [address] [place] [address] Care Team Providers Name Role Phone Elsewhere, Pcp Primary Care Provider Unavailable Reason for Visit Reason Comments Sinus Symptoms 30 + days ago Encounter Details Date Type Department Care Team Description 12/12/2018 Office Visit Express Care in [facility] Mario Savage, Inf ection [place], [place] P.A.-C. Respiratory (Primary [address], [place]x) [facility] [address] [place], [place] [phone] (Wo rk) Social History Tobacco Use Types [...] do you attend rastafarian or Never 2021 muslim services? Do you [...] at Date Recorded Female 12/02/2021 5:19 PM ORNAMENT STAPLER documented as of this encounter Last Filed Vital Signs Vital Sign Reading Time Taken Comments Blood Pressure 136/92 12/12/2018 7:15 PM ORNAMENT STAPLER Pulse 86 12/12/2018 7:15 PM ORNAMENT STAPLER Temperature 36.9 ??C (98.4 ??F) 12/12/2018 7:15 PM ORNAMENT STAPLER Respiratory Rate - - Oxygen Saturation 96% 12/12/2018 7:15 PM ORNAMENT STAPLER Inhaled Oxygen Concentration - - Weight 72 kg (158 lb 11.7 oz) 12/12/2018 7:15 PM ORNAMENT STAPLER Height - - Body Mass Index 31 10/31/2018 6:04 PM ORNAMENT STAPLER documented in this encounter Patient Instructions Patient [...] urgent care if worsening. Mario Savage P.A.-C. MENT STAPLER documented in this encounter Progress Notes Mario [...] urgent care if worsening. Mario Savage P.A.-C. MENT STAPLER documented in this encounter Plan of Treatment Not on filedocumented as of this encounter Visit Diagnoses Diagnosis Infection Upper Respiratory - Primary documented in this encounter Care Teams Market Maker Relationship Specialty Start Date End Date Elsewhere, Pcp PCP - General Family Medicine 01/08/18 01/12/21 documented as of this encounter
--- OUTSIDE RECORDS SUMMARY | 2022-06-20 18:51 | XMS_ITS | Encounter Summary ---
:1990 Author Organization [facility] Address [address] [place] [address] Care Team Providers Name Role Phone Elsewhere, Pcp Primary Care Provider Unavailable Reason for Visit Reason Comments Sore Throat pt with 2 1/2 week history o f sinus congestion now presents with sore throat. Throat pain started about 4 days ago, and is getting worse every day. Encounter Details Date Type Department Care Team Description 09/22/2018 Emergency [place] [facility] Marissa Mccormack, Catie lawsonnicole Acute Department D.O. (Primary Dx) [address] [place] [phone] Social History Tobacco Use Types Packs/Day Years [...] do you attend congregational or Never 2021 scientologist services? Do you [...] at Date Recorded Female 12/02/2021 5:19 PM CLAIM PROFESSIONAL documented as of this encounter Last Filed Vital Signs Vital Sign Reading Time Taken Comments Blood Pressure 128/88 09/22/2018 9:00 AM CLAIM PROFESSIONAL Pulse 88 09/22/2018 9:00 AM CLAIM PROFESSIONAL Temperature 37.5 ??C (99.5 ??F) 09/22/2018 9:00 AM CLAIM PROFESSIONAL Respiratory Rate 16 09/22/2018 9:00 AM CLAIM PROFESSIONAL Oxygen Saturation 99% 09/22/2018 9:00 AM CLAIM PROFESSIONAL Inhaled Oxygen Concentration - - Weight 71.9 kg (158 lb 8.2 oz) 09/22/2018 8:10 AM CLAIM PROFESSIONAL Height 157 cm (5' 1.81) 09/22/2018 8:10 AM CLAIM PROFESSIONAL Body Mass Index 29.17 09/22/2018 8:10 AM CLAIM PROFESSIONAL documented in this encounter Discharge Instructions Discharge InstructionsBuMarissa lopez D.O. - 09/22/2018 8:59 AM CST Take the steroids daily, and take ibuprofen and/or tylenol as needed for pain. You should return to the ED for dehydration, if you are more swollen, have difficulty breathing or cannot swallow. M PROFESSIONAL AttachmentsThe following attachments cannot be sent through Care Everywhere.Sore Throat (Mongolian)documented in this encounter Medications at Time of [...] Pharyngitis Acute Marissa Mccormack D.O. 09/22/18 0917 M PROFESSIONAL documented in this encounter Plan of Treatment Not on filedocumented as of this encounter Procedures Procedure Name Priority Date/Time Associated Diagnosis Comme nts RAPID STREP A STAT 09/22/2018 8:37 AM Results for this SCREEN CLAIM PROFESSIONAL procedure are i n the results section. BACTERIAL CULTURE, STAT 09/22/2018 8:37 AM Res ults for this THROAT CLAIM PROFESSIONAL procedure are i n the results section. documented in this encounter Results Bacterial Culture, Throat (09/22/2018 8:37 AM CLAIM PROFESSIONAL) [facility] Method Time Signature Throat No growth of 09/24/2018 [facility] Culture Streptococcus 7:07 AM CLAIM PROFESSIONAL HEALTH pyogenes [facility] Specimen Anatomical Collection Method Collection Time Receive d Time (Source) Location / / Volume Laterality Throat Swab 09/22/2018 8:37 AM 8 3:28 CLAIM PROFESSIONAL PM CLAIM PROFESSIONAL Marissa Mccormack D.O. LAB MICROBIOLOGY - GENERAL O RDERABLES Performing Organization Address City/State/ZIP Code Phon e Number [facility] [address] [place] [address] LAB Rapid Strep A Screen (09/22/2018 8:37 AM CLAIM PROFESSIONAL) P athologist Signature Rapid Strep A Negative Negative 09/22/2018 [facility] Screen 8:52 AM [facility] LAB Specimen Anatomical Collection Method Collection Time Receive d Time (Source) Location / / Volume Laterality Varies (Throat) 09/22/2018 8:37 AM 2017 8:41 CLAIM PROFESSIONAL AM CLAIM PROFESSIONAL Marissa Mccormack D.O. LAB MICROBIOLOGY - GENERAL O RDERABLES Performing Organization Address City/State/ZIP Code Phon e Number [address] [address] [place] [facility] documented in this encounter Visit Diagnoses Diagnosis Pharyngitis Acute - Primary documented in this encounter Care Teams Air Brake Man Relationship Specialty Start Date End Date Elsewhere, Pcp PCP - General Family Medicine 01/08/18 01/12/21 documented as of this encounter
--- OUTSIDE RECORDS SUMMARY | 2022-06-20 18:51 | XMS_ITS | Encounter Summary ---
:1990 Author Organization [facility] Address [address] [place] [address] Care Team Providers Name Role Phone Elsewhere, [...] Type Department Care Team Description 07/23/2019 Emergency [place] [facility] Bull Calderon Cos tochondritis (Primary Department M.D. Dx) [address] [place] [facility] [place] [phone] Social History Tobacco Use Types Packs/Day Years [...] do you attend buddhist or Never 2021 rastafarian services? Do you [...] at Date Recorded Female 12/02/2021 5:19 PM DAIRY FARM WORKER documented as of this encounter Last [...] cannot be sent through Care Everywhere. Costochondritis Uajr-gl-Ewux (Malay)documented in this encounter Medications at Time of [...] Plan Impression: Costochondritis Plan: Patient has utilize [id number] medications without improvement or alteration in her symptomatology. Patient be started on prednisone 20 mg daily for 5 days, the 1st dose administered here in the emergency department. Ultram 50 mg 1/2-1 tablet to be utilized every 6 hours as needed for painrating 7-10/10 severity, quantity 15 with no refills was prescribed from the [facility] medication dispenser as it is currently raining [...] dose documented in this encounter Care Teams Host/Hostess Restaurant Relationship Specialty Start Date End Date Elsewhere, Pcp PCP - General Family Medicine 01/08/18 01/12/21 documented as of this encounter
--- OUTSIDE RECORDS SUMMARY | 2022-06-20 18:51 | XMS_ITS | Encounter Summary ---
:1990 Author Organization [facility] Address [address] [place] [address] Care Team Providers Name Role Phone Elsewhere, Pcp Primary Care Provider Unavailable Reason for Referral MRI/CAT/PET Scan (Routine) - Closed Specialty Diagnoses / Procedures Referred By Contact Refer red To Contact Radiology Diagnoses Pain Cervical Esther Andrea APRN, [facility] Region Procedures CT Thoracic Spine without IV Contrast C.N.P., D.N.P. [address] [place] [address] Referral ID Status Reason Start Date Expiration Date Visits Requ ested Visits Authorized [id number] Closed 08/01/2019 07/31/2020 1 1 Reason for Visit MRI/CAT/PET Scan (Routine) - Closed Specialty Diagnoses / Procedures Referred By Contact Refer red To Contact Radiology Diagnoses Pain Cervical Emre, FATOU Santana, [facility] Region Procedures CT Thoracic Spine without IV Contrast C.N.P., D.N.P. [address] [place] [address] Referral ID Status Reason Start Date Expiration Date Visits Requ ested Visits Authorized [id number] Closed 08/01/2019 07/31/2020 1 1 Encounter Details Date Type Department Care Team Description 08/01/2019 Hospital Encounter Department of Radiology Eliazar Andrea, Pain Cervical [place] APRN C.N.P., [address] [facility] D.N.P. [place], [place] [address] [place] [address] [place], [place] [phone] Social History Tobacco Use Types Packs/Day [...] do you attend tenriism or Never 2021 religion services? Do you [...] at Date Recorded Female 12/02/2021 5:19 PM MACROECONOMICS PROFESSOR documented as of this encounter Medications at [...] Cervical documented in this encounter Care Teams Primer Inserting Machine Adjuster Relationship Specialty Start Date End Date Elsewhere, Pcp PCP - General Family Medicine 01/08/18 01/12/21 documented as of this encounter
--- OUTSIDE RECORDS SUMMARY | 2022-06-20 18:51 | XMS_ITS | Encounter Summary ---
:1990 Author Organization [facility] Address [address] [place] [address] Care Team Providers Name Role Phone Elsewhere, Pcp Primary Care Provider Unavailable Reason for Referral Outpatient (Routine) - Closed Specialty Diagnoses / Procedures Referred By Contact Refer red To Contact Emergency Medicine Diagnoses Pain Neck Strain Neck Initial Contusion Leg Initial Left Derrek Leon M.D. [facility] [address] [place] [address] Referral ID Status Reason Start Date Expiration Date Visits Requ ested Visits Authorized [id number] Closed 08/01/2019 07/31/2020 1 1 Reason for Visit Reason Comments Neck Pain Pt presents from Urgent care for evaluation of neck pain and tingling of left leg. Encounter Details Date Type Department Care Team Description 08/01/2019 Emergency [place] [facility] Derrek Leon Pa in Neck (Primary Dx); Department M.DMaribell Strain Neck Initial; [address] [facility] [address] [facility] Contusion Leg Initial Left; [place], [place] Paresthesias Feet [phone] Social History Tobacco Use Types Packs/Day [...] do you attend jewish or Never 2021 bahai services? Do you [...] at Date Recorded Female 12/02/2021 5:19 PM STUDENT SERVICES COORDINATOR documented as of this encounter Last [...] be sent through Care Everywhere. Muscle Strain (Vatican Citizen)Cervical Sprain (Vatican Citizen)Contusion ([place]atican Citizen)documented in this encounter Medications at Time of [...] Feet documented in this encounter Care Teams Sound System Installer Relationship Specialty Start Date End Date Elsewhere, Pcp PCP - General Family Medicine 01/08/18 01/12/21 documented as of this encounter
--- OUTSIDE RECORDS SUMMARY | 2022-06-20 18:51 | XMS_ITS | Encounter Summary ---
:1990 Author Organization [facility] Address [address] [place] [address] Care Team Providers Name Role Phone Elsewhere, Pcp Primary Care Provider Unavailable Encounter Details Date Type Department Care Team Description 01/28/2019 Hospital Encounter Department of Radiology Ben Arce M.D. Edema Leg in [place], [place] [address] [place] [phone] Social History Tobacco Use Types Packs/Day Years [...] do you attend temple or Never 2021 latter day services? Do [...] at Date Recorded Female 12/02/2021 5:19 PM MOLD STACKER documented as of this encounter Medications at [...] Leg documented in this encounter Care Teams Slitter And Cutter Operator Relationship Specialty Start Date End Date Elsewhere, Pcp PCP - General Family Medicine 01/08/18 01/12/21 documented as of this encounter
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
--- OUTSIDE RECORDS SUMMARY | 2022-06-20 18:51 | XMS_ITS | Encounter Summary ---
:1990 Author Organization [facility] Address [address] [place] [address] Care Team Providers Name Role Phone Elsewhere, Pcp Primary Care Provider Unavailable Reason for Referral Outpatient (Routine) - Closed Specialty Diagnoses / Procedures Referred By Contact Refer red To Contact Neurology Diagnoses Contusion Leg Initial Left Numbness Ben Arce M.D. [facility] [address] [place] [address] Referral ID Status Reason Start Date Expiration Date Visits V isits Requested Authorized [id number] Closed Specialty 08/11/2019 08/10/2020 1 1 Services Required Reason for Visit Reason Comments Follow-up ED 08/01 [facility] Outpatient (Routine) - Closed Specialty Diagnoses / Procedures Referred By Contact Refer red To Contact Emergency Medicine Diagnoses Pain Neck Strain Neck Initial Contusion Leg Initial Left Derrek Leon M.D. [facility] [place] [address] Referral ID Status Reason Start Date Expiration Date Visits Requ ested Visits Authorized [id number] Closed 08/01/2019 07/31/2020 1 1 Encounter Details Date Type Department Care Team Description 08/11/2019 Office Visit Department of Ben Metzger M.D. Pain Neck (Primary Dx); Medicine in [facility] [address] Strain Neck Initial; [place], [place] Contusion Leg Initial Left; [address] [place] [address] Numbness [place], [place] [phone] (Work) [phone] Social History Tobacco Use Types Packs/Day Years [...] do you attend sabianist or Never 2021 taoist services? Do you [...] Date Recorded Female 12/02/2021 5:19 PM FAMILY AND CONSUMER EDUCATION TEACHER documented as of this encounter [...] Numbness documented in this encounter Care Teams Accessories Repairer Relationship Specialty Start Date End Date Elsewhere, Pcp PCP - General Family Medicine 01/08/18 01/12/21 documented as of this encounter
--- OUTSIDE RECORDS SUMMARY | 2022-06-20 18:51 | XMS_ITS | Encounter Summary ---
:1990 Author Organization [facility] Address [address] [place] [address] Care Team Providers Name Role Phone Elsewhere, Pcp Primary Care Provider Unavailable Reason for Visit Reason Comments Facial Pain Pt presents for eval of sinu s pain, congestion, throat pain and claire ear pain. sick for 3 1/2 weeks . No known fever. Using OTC sudafed and afrin without relief. Encounter Details Date Type Department Care Team Description 09/09/2019 Emergency [place] [facility] Sigrid Forbes (Primary Dx); Department D, M.D. Infection Upper Respiratory Viral [address] [facility] [place] [phone] (Wo rk) Social History Tobacco Use Types [...] do you attend quaker or Never 2021 samaritan services? Do you [...] at Date Recorded Female 12/02/2021 5:[address] MAINTENANCE SUPERVISOR documented as of this encounter Last Filed Vital Signs Vital Sign Reading Time Taken Comments Blood Pressure 135/101 09/09/2019 9:[address] MAINTENANCE SUPERVISOR Pulse 75 09/09/2019 9:[address] MAINTENANCE SUPERVISOR Temperature 36 ??C (96.8 ??F) 09/09/2019 9:[address] MAINTENANCE SUPERVISOR Respiratory Rate 18 09/09/2019 9:[address] MAINTENANCE SUPERVISOR Oxygen Saturation 96% 09/09/2019 9:[address] MAINTENANCE SUPERVISOR Inhaled Oxygen Concentration - - Weight 72.6 kg (160 lb) 09/09/2019 9:[address] MAINTENANCE SUPERVISOR Height 152.4 cm (5') 09/09/2019 9:[address] MAINTENANCE SUPERVISOR Body Mass Index 31.25 09/09/2019 9:[address] MAINTENANCE SUPERVISOR documented in this encounter Discharge Instructions Discharge InstructionsTomSigrid remy M.D. - 09/09/2019 9:[address] MAINTENANCE SUPERVISOR Return to the Emergency Department if you [...] clinic by calling the appointment center at [phone]. Thank you for choosing [facility] for your care. It was a pleasure taking care of you today in our Emergency Department. T OF WAY MAINTENANCE SUPERVISOR AttachmentsThe following attachments cannot be sent through Care Everywhere. Sinus Rinse Fyza-zx-Zhqu (Chinese)Sinusitis Adult Yvnn-hx-Ozvv (Chinese) documented in this encounter Medications at Time [...] Forbes M.D. 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 09/09/[address] MAINTENANCE SUPERVISOR documented in this encounter Plan of Treatment Not on filedocumented as of this encounter Visit Diagnoses Diagnosis Sinusitis - Primary Infection Upper Respiratory Viral documented in this encounter Care Teams Stunner And Shackler Relationship Specialty Start Date End Date Elsewhere, Pcp PCP - General Family Medicine 01/08/18 01/12/21 documented as of this encounter
--- OUTSIDE RECORDS SUMMARY | 2022-06-20 18:51 | XMS_ITS | Encounter Summary ---
:1990 Author Organization [facility] Address [address] [place] [address] Care Team Providers Name Role Phone Elsewhere, Pcp Primary Care Provider Unavailable Reason for Visit Reason Comments Sinusitis Encounter Details Date Type Department Care Team Description 01/10/2020 Office Visit Urgent Care, [facility], Sin usitis Acute [place], in [place], FATOU, C.N.P., (Samina pendleton Dx) [place] D.N.P. [address] [place] [phone] [phone] Social History Tobacco Use Types Packs/Day Years [...] do you attend anabaptism or Never 2021 orthodoxy services? Do you [...] at Date Recorded Female 12/02/2021 5:19 PM UNIX MANAGER documented as of this encounter Last [...] Body Mass Index 30.4 12/26/2019 9:26 AM UNIX MANAGER documented in this encounter Patient Instructions Patient [...] bacteria. Still, most people seen in the [facility] for upper respiratory infectionor sinusitis [...] and replace them as recommended by the double end chucking machine operator. Note: Having your humidity too high (more [...] help open sinuses and allow easier breathing. Yfoq-ohs-ocwnxym treatments* In addition to the previous suggestions, you may get relief for nasal and sinus obstruction or discomfort by taking non-prescription, hfpk-vyb-dwdewyj (OTC) medications. Many OTC medications combine a [...] your health care provider. ? 2008 [facility] for Medical Education and Research ([facility]). All rights reserved. [id number] documented in this encounter Progress Notes Esther [...] Primary documented in this encounter Care Teams Assembler Installer Structures Relationship Specialty Start Date End Date Elsewhere, Pcp PCP - General Family Medicine 01/08/18 01/12/21 documented as of this encounter
--- OUTSIDE RECORDS SUMMARY | 2022-06-20 18:51 | XMS_ITS | Encounter Summary ---
:1990 Author Organization [facility] Address [address] [place] [address] Care Team Providers Name Role Phone Elsewhere, Pcp Primary Care Provider Unavailable Encounter Details Date Type Department Care Team Description 01/28/2019 Hospital Encounter Department of Radiology, Ben Arias M.D. [place] [address] [address] [place], [place] [facility] [address] [place] [address] [phone] Social History Tobacco Use Types Packs/Day Years [...] do you attend mandaen or Never 2021 baptism services? Do you [...] at Date Recorded Female 12/02/2021 5:19 PM RAILROAD ACCOUNTANT documented as of this encounter Medications at [...] on filedocumented in this encounter Care Teams Supply Service Worker Relationship Specialty Start Date End Date Elsewhere, Pcp PCP - General Family Medicine 01/08/18 3 documented as of this encounter
--- OUTSIDE RECORDS SUMMARY | 2022-06-20 18:51 | XMS_ITS | Encounter Summary ---
:1990 Author Organization [facility] Address [address] [place] [address] Care Team Providers Name Role Phone Elsewhere, Pcp Primary Care Provider Unavailable Reason for Visit Reason Comments PAYAL has had symptoms for 3-4 we eks Muscle Pain chest and back -05/31, has been using ibuprofen Encounter Details Date Type Department Care Team Description 10/31/2018 Emergency [place] [facility] Valerie Malone, Infec kori Upper Department MMaribellDMaribell Respiratory (Primary [address] Dx) [place] [address] [phone] Social History Tobacco Use Types Packs/Day Years [...] do you attend evangelical or Never 2021 confucianism services? Do you [...] at Date Recorded Female 12/02/2021 5:19 PM HOTSHOT SUPERINTENDENT documented as of this encounter Last Filed Vital Signs Vital Sign Reading Time Taken Comments Blood Pressure 134/95 10/31/2018 6:52 PM HOTSHOT SUPERINTENDENT Pulse 81 10/31/2018 6:06 PM HOTSHOT SUPERINTENDENT Temperature 37.2 ??C (99 ??F) 10/31/2018 6:52 PM HOTSHOT SUPERINTENDENT Respiratory Rate 20 10/31/2018 6:06 PM HOTSHOT SUPERINTENDENT Oxygen Saturation 98% 10/31/2018 6:06 PM HOTSHOT SUPERINTENDENT Inhaled Oxygen Concentration - - Weight 73.3 kg (161 lb 9.6 oz) 10/31/2018 6:04 PM HOTSHOT SUPERINTENDENT Height 152.4 cm (5') 10/31/2018 6:04 PM HOTSHOT SUPERINTENDENT Body Mass Index 31.56 10/31/2018 6:04 PM HOTSHOT SUPERINTENDENT documented in this encounter Discharge Instructions AttachmentsThe following attachments cannot be sent through Care Everywhere. Upper Respiratory Infection Adult Hxuc-zg-Lxkh (Arabic)documented in this encounter Medications at Time of [...] Upper Respiratory Valerie Malone M.D. 10/31/18 1840 HOT SUPERINTENDENT documented in this encounter Plan of Treatment Not on filedocumented as of this encounter Visit Diagnoses Diagnosis Infection Upper Respiratory - Primary documented in this encounter Care Teams Firepot Operator And Tender Relationship Specialty Start Date End Date Elsewhere, Pcp PCP - General Family Medicine 01/08/18 01/12/21 documented as of this encounter
--- OUTSIDE RECORDS SUMMARY | 2022-06-20 18:51 | XMS_ITS | Encounter Summary ---
:1990 Author Organization [facility] Address [address] [place] [address] Care Team Providers Name Role Phone Elsewhere, Pcp Primary Care Provider Unavailable Reason for Visit Reason Comments Hand Injury pt presents with injury to l eft hand, pt states she was holding onto a door knob yesterday at work when someone pushed the door open and smashed her hand Swelling noted. Encounter Details Date Type Department Care Team Description 12/26/2019 Emergency [place] [facility] Sigrid Forbes ontusion Hand Initial Department Minoo Cervantes Left (Primary Dx) [address] [facility] [place] [phone] (Wo rk) Social History Tobacco Use Types [...] do you attend rastafari or Never 2021 yazidi services? Do you [...] at Date Recorded Female 12/02/2021 5:19 PM CHINA DECORATOR documented as of this encounter Last Filed Vital Signs Vital Sign Reading Time Taken Comments Blood Pressure 128/90 12/26/2019 10:18 AM CHINA DECORATOR Pulse 78 12/26/2019 10:18 AM CHINA DECORATOR Temperature 37 ??C (98.6 ??F) 12/26/2019 10:18 AM CHINA DECORATOR Respiratory Rate 16 12/26/2019 10:18 AM CHINA DECORATOR Oxygen Saturation 100% 12/26/2019 10:18 AM CHINA DECORATOR Inhaled Oxygen Concentration - - Weight 70.8 kg (156 lb 1.4 oz) 12/26/2019 9:26 AM CHINA DECORATOR Height 155 cm (5' 1.02) 12/26/2019 9:26 AM CHINA DECORATOR Body Mass Index 29.47 12/26/2019 9:26 AM CHINA DECORATOR documented in this encounter Discharge Instructions Discharge InstructionsToSigrid geronimo M.D. - 12/26/2019 9:47 AM CHINA DECORATOR Return to the Emergency Department with any [...] clinic by calling the appointment center at [phone]. Thank you for choosing [facility] for your care. It was a pleasure taking care of you today in our Emergency Department. A DECORATOR documented in this encounter Medications at Time [...] Forbes M.D. - 12/26/2019 9:37 AM CST [place] EMERGENCY DE[facility]MENT EMERGENCY DEPARTMENT ENCOUNTER Patient Name: [...] 9:49 AM Sigrid Forbes M.D. 12/26/19 1052 A DECORATOR documented in this encounter Plan of Treatment Not on filedocumented as of this encounter Procedures Procedure Name Priority Date/Time Associated Comments Diagnosis DX HAND LEFT 3 RAD - Semiurgent 12/26/2019 9:39 Result s for this VIEWS (Fast; most ED AM CHINA DECORATOR procedure are in patients; some the results inpatients) section. documented in this encounter Results DX Hand Left 3 Views (12/26/2019 9:39 AM CHINA DECORATOR) Anatomical Region Laterality Modality Upper Extremity, Hand, Musculoskeletal RST LOS, Left Digital Radiography Musculoskeletal ARZ LOS, Muskuloskeletal FLA LOS Specimen (Source) Anatomical Collection Method Collection Time Re ceived Time Location / / Volume Laterality 12/26/2019 9:40 AM CHINA DECORATOR Impressions 12/26/2019 9:41 AM CHINA DECORATOR No acute radiographic abnormalities are demonstrated. Narrative 12/26/2019 9:41 AM CHINA DECORATOR EXAM: DX HAND LEFT 3 VIEWS COMPARISON: [...] Primary documented in this encounter Care Teams Research Soil Scientist Relationship Specialty Start Date End Date Elsewhere, Pcp PCP - General Family Medicine 01/08/18 01/12/21 documented as of this encounter
--- OUTSIDE RECORDS SUMMARY | 2022-06-20 18:51 | XMS_ITS | Encounter Summary ---
:1990 Author Organization [facility] Address [address] [place] [address] Care Team Providers Name Role Phone Elsewhere, Pcp Primary Care Provider Unavailable Reason for Visit Reason Comments Vomiting Pt presents w/nausea, vomiti ng and diarrhea onset 2300 yesterday. Encounter Details Date Type Department Care Team Description 11/11/2019 Emergency [place] [facility] Sigrid Forbes ausea And Vomiting (Primary Dx); Department D, M.D. Diarrhea [address] [place] [phone] (Wo rk) Social History Tobacco Use Types [...] do you attend orthodoxy or Never 2021 mormon services? Do you [...] at Date Recorded Female 12/02/2021 5:19 PM PRIMER INSERTING MACHINE OPERATOR documented as of this encounter Last Filed Vital Signs Vital Sign Reading Time Taken Comments Blood Pressure 112/79 11/11/2019 7:01 AM PRIMER INSERTING MACHINE OPERATOR Pulse 81 11/11/2019 7:01 AM PRIMER INSERTING MACHINE OPERATOR Temperature 36.4 ??C (97.5 ??F) 11/11/2019 7:01 AM PRIMER INSERTING MACHINE OPERATOR Respiratory Rate 16 11/11/2019 7:01 AM PRIMER INSERTING MACHINE OPERATOR Oxygen Saturation 93% 11/11/2019 7:01 AM PRIMER INSERTING MACHINE OPERATOR Inhaled Oxygen Concentration - - Weight 71.8 kg (158 lb 4.6 oz) 11/11/2019 5:50 AM PRIMER INSERTING MACHINE OPERATOR Height 152.4 cm (5') 11/11/2019 5:50 AM PRIMER INSERTING MACHINE OPERATOR Body Mass Index 30.91 11/11/2019 5:50 AM PRIMER INSERTING MACHINE OPERATOR documented in this encounter Discharge Instructions Discharge InstructionsToSigrid geronimo M.D. - 11/11/2019 6:51 AM PRIMER INSERTING MACHINE OPERATOR Return to the Emergency Department/ if [...] clinic by calling the appointment center at [phone]. Thank you for choosing [facility] for your care. It was a pleasure taking care of you today in our Emergency Department. ER INSERTING MACHINE OPERATOR AttachmentsThe following attachments cannot be sent through Care Everywhere. Nausea and Vomiting Adult (Lithuanian)Diarrhea Adult Chvn-jc-Scaq (Lithuanian) documented in this encounter Medications at Time [...] Forbes M.D. - 11/11/2019 6:16 AM CST [place] EMERGENCY DEPARTMENT EMERGENCY DEPARTMENT ENCOUNTER Patient Name: Lulu Mata PCP: Primary Care Physician SUBJECTIVE CHIEF COMPLAINT/REASON FOR VISIT Vomiting (Pt presents w/nausea, vomiting and diarrhea onset 2300 yesterday.) HISTORY OF PRESENT ILLNESS Lulu Mata is a 29 y.o. female with a history of asthma presenting with 7 hours of vomiting and diarrhea. She ate dinner at the [employer] last night. Several different types of food [...] felt well before eating dinner at the [employer]. She denies any recentabdominal pain, no prior [...] Forbes M.D. 11/11/19650 Sigrid Forbes M.D. 11/11/19654 ER INSERTING MACHINE OPERATOR documented in this encounter Plan of Treatment Not on filedocumented as of this encounter Visit Diagnoses Diagnosis Nausea And Vomiting - Primary Diarrhea documented in this encounter Administered Medications Inactive Administered Medications - up to 3 most recent administrations Medication Order MAR Action Action Date Dose Rate Site ondansetron ODT disintegrating Given 11/11/2019 6:10 AM PRIMER INSERTING MACHINE OPERATOR 8 mg tablet 8 mg (ZOFRAN-ODT) 8 mg, oral, Once, On Sun11/11/19 at 0605, For 1 dose, When splitting ODT at bedside, handle with gloves and a pill splitter to prevent moisture contact. documented in this encounter Active and Recently Administered Medications Times are shown in PRIMER INSERTING MACHINE OPERATOR. Scheduled Medication Order 11/09/2019 11/10/2019 11/11/2019 ondansetron ODT disintegrating tablet 8 mg (ZOFRAN-ODT) ([facility] ED) 0610 (Given - Provider: Tara Brock R.N.) 8 mg, oral, Once, On Sun11/11/19 at 0605 , For 1 dose, When splitting ODT at bedside, handle with gloves and a pill splitter to prevent moisture contact. documented in this encounter Care Teams Livestock Rancher Relationship Specialty Start Date End Date Elsewhere, Pcp PCP - General Family Medicine 01/08/18 01/12/21 documented as of this encounter
--- OUTSIDE RECORDS SUMMARY | 2022-06-20 18:51 | XMS_ITS | Encounter Summary ---
:1990 Author Organization [facility] Address [address] [place] [address] Care Team Providers Name Role Phone Elsewhere, Pcp Primary Care Provider Unavailable Reason for Visit Reason Comments Sinus Symptoms ST, Cipriano ear pressure, conges tion; 3.5 wks ago Encounter Details Date Type Department Care Team Description 06/27/2019 Office Visit Urgent Care, [facility] [place], [place] [address], [address] [place] [address] [phone] (Wo rk) Social History Tobacco Use Types [...] do you attend druze or Never 2021 buddhist services? Do you [...] at Date Recorded Female 12/02/2021 5:19 PM ORACLE BUSINESS ANALYST documented as of this encounter Last [...] Primary documented in this encounter Care Teams Dough Sheeter Relationship Specialty Start Date End Date Elsewhere, Pcp PCP - General Family Medicine 01/08/18 01/12/21 documented as of this encounter
--- OUTSIDE RECORDS SUMMARY | 2022-06-20 18:51 | XMS_ITS | Encounter Summary ---
:1990 Author Organization [facility] Address [address] [place] [address] Care Team Providers Name Role Phone Elsewhere, Pcp Primary Care Provider Unavailable Reason for Referral Outpatient (Routine) - Canceled Specialty Diagnoses / Procedures Referred By Contact Refer red To Contact Diagnoses Numbness Ben Arce M.D. External, Referring [address] [place] [address] Referral ID Status Reason Start Date Expiration Date Visits V isits Requested Authorized [id number] Canceled No 08/26/2019 08/25/2020 1 1 access/unsa tisfactory access ARCH LIBRARIAN Reason for Visit Reason Onset Date Comments Communication 08/26/2019 Encounter Details Date Type Department Care Team Description 08/26/2019 Clinical Communication Department of Ben Metzger , Communication Medicine [place] [address] [place] [phone] Social History Tobacco Use Types Packs/Day Years [...] do you attend cheondoism or Never 2021 sikhism services? Do you belong to any clubs or No 11/20/2021 organizations such as cheondoism groups, unions, fraBrightcove or athletic groups, or school groups? How [...] Date Recorded Female 12/02/2021 5:19 PM RESEARCH LIBRARIAN documented as of this encounter Miscellaneous Notes Telephone Encounter - Alexandria Whittington - 08/27/2019 9:52 AM CST I will work on this. ARCH LIBRARIAN Telephone Encounter - Sridhar Espinal - 08/27/2019 8:24 AM CST Alexandria, can you work on this please? Thank you!! ARCH LIBRARIAN Telephone Encounter - Ben Arce M.D. - 08/26/2019 3:36 PM CST External referral order placed. Please help her to find nearby neurology. None in [place], she has travel to [place] or [facility]. Thanks. ARCH LIBRARIAN Telephone Encounter - Nadya Koehler, RMaribellN. - 08/26/2019 12:19 PM RESEARCH LIBRARIAN Can an outside referral be entered for neurology for sooner appointment? Thank you. ARCH LIBRARIAN Telephone Encounter - Rlyie Juárez - 08/26/2019 12:[address] Daiana Booth does not have an opening in [place] until December and Lulu cannot [facility]. Can a referral be placed for a neurologist that is closer? ARCH LIBRARIAN documented in this encounter Plan of Treatment Not on filedocumented as of this encounter Visit Diagnoses Diagnosis Numbness - Primary documented in this encounter Care Teams Geography Instructor Relationship Specialty Start Date End Date Elsewhere, Pcp PCP - General Family Medicine 01/08/18 01/12/21 documented as of this encounter
--- OUTSIDE RECORDS SUMMARY | 2022-06-20 18:51 | XMS_ITS | Encounter Summary ---
:1990 Author Organization [facility] Address [address] [place] [address] Care Team Providers Name Role Phone Elsewhere, Pcp Primary Care Provider Unavailable Reason for Visit MRI/CAT/PET Scan (Routine) - Closed Specialty Diagnoses / Procedures Referred By Contact Refer red To Contact Radiology Diagnoses Pain Cervical Esther Andrea, ANIMAL PHYSIOLOGY TEACHER, [facility] Region Procedures CT Cervical Spine without IV Contrast C.N.P., D.N.P. [address] [place] [address] Referral ID Status Reason Start Date Expiration Date Visits Requ ested Visits Authorized [id number] Closed 08/01/2019 07/31/2020 1 1 Encounter Details Date Type Department Care Team Description 08/01/2019 Hospital Encounter Department of Radiology Eliazar Andrea britt, in [facility] FATOU, C.N.P., [address] D[place]P. [place], [place] [phone] [place] [phone] [place] [phone] Social History Tobacco Use Types Packs/Day Years [...] do you attend gnosticist or Never 2021 protestant services? Do you belong to any clubs or No 11/20/2021 organizations such as gnosticist groups, unions, frafor; to (do) Centers or athletic groups, or school groups? How [...] Date Recorded Female 12/02/2021 5:19 PM ACID MIXER documented as of this encounter Medications [...] N/A Computed Tomography ARZ LOS, Neuroradiology [facility] Specimen (Source) Anatomical Collection Method Collection [...] on filedocumented in this encounter Care Teams High School Principal Relationship Specialty Start Date End Date Elsewhere, Pcp PCP - General Family Medicine 01/08/18 01/12/21 documented as of this encounter
--- OUTSIDE RECORDS SUMMARY | 2022-06-20 18:51 | XMS_ITS | Encounter Summary ---
:1990 Author Organization [facility] Address [address] [place] [address] Care Team Providers Name Role Phone Elsewhere, Pcp Primary Care Provider Unavailable Reason for Referral Outpatient (Routine) - Closed Specialty Diagnoses / Procedures Referred By Contact Refer red To Contact Family Medicine Ben Arce M.D. [facility] Region [address] [place] [address] Referral ID Status Reason Start Date Expiration Date Visits Requ ested Visits Authorized [id number] Closed 01/28/2019 01/28/2020 1 1 Reason for Visit Reason Comments Follow-up Sprain knee Encounter Details Date Type Department Care Team Description 01/28/2019 Comprehensive Visit Department of Ben Metzger, Pain Knee Left (Primary Dx); [facility]; [place], [place] [address] Thrombosis Superficial Vein Lower Extremity Left [address] [place] [phone] Social History Tobacco Use Types Packs/Day Years [...] do you attend worship or Never 2021 hoahaoism services? Do you belong to any clubs or No 11/20/2021 organizations such as worship groups, unions, fraClearStar or athletic groups, or school groups? How [...] at Date Recorded Female 12/02/2021 5:19 PM DASHBOARD DEVELOPER documented as of this encounter Last [...] Name Type Priority Associated Diagnoses Order S [facility] Medicine Outpatient Referral Routine Expec taurus: office [...] Leg documented in this encounter Care Teams Manager Medicare Relationship Specialty Start Date End Date Elsewhere, Pcp PCP - General Family Medicine 01/08/18 01/12/21 documented as of this encounter
--- OUTSIDE RECORDS SUMMARY | 2022-06-20 18:51 | XMS_ITS | Encounter Summary ---
:1990 Author Organization [facility] Address [address] [place] [address] Care Team Providers Name Role Phone Elsewhere, Pcp Primary Care Provider Unavailable Reason for Visit Reason Comments Follow-up Outpatient (Routine) - Closed Specialty Diagnoses / Procedures Referred By Contact Refer red To Contact Family Medicine Ben Arce M.D. [facility] Region [address] [place] [address] Referral ID Status Reason Start Date Expiration Date Visits Requ ested Visits Authorized [id number] Closed 01/28/2019 01/28/2020 1 1 Encounter Details Date Type Department Care Team Description 02/11/2019 Office Visit Department of Ben Metzger M.D. Thrombosis Superficial Medicine in [facility] [address] Vein Lower Extremity [place], [place] Left (Primary Dx) [address] [place] [address] [place], [place] [phone] (Work) [phone] Social History Tobacco Use Types Packs/Day Years [...] do you attend denominational or Never 2021 orthodox services? 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
--- OUTSIDE RECORDS SUMMARY | 2022-06-20 18:51 | XMS_ITS | Encounter Summary ---
:1990 Author Organization [facility] Address [address] [place] [address] Care Team Providers Name Role Phone Elsewhere, [...] Type Department Care Team Description 07/29/2019 Emergency [facility] Sigrid Forbes ontusion Left Lower Department D, MMaribellDMaribell Leg Initial (Primary [address] Dx) [place] [phone] (Wo rk) Social History Tobacco Use Types [...] do you attend zoroastrian or Never 2021 jainism services? Do you belong to any clubs or No 11/20/2021 organizations such as zoroastrian groups, unions, fraInternet Marketing Academy [place] or athletic groups, or school groups? 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 Thank you for choosing [facility] for your care. It was a pleasure taking care of you today in our Emergency Department. AttachmentsThe following attachments cannot be sent through Care Everywhere. Contusion Dzbr-pg-Dizt (Kazakh)documented in this encounter Medications at Time of Discharge Medication Sig Dispensed Refills Start Date End Date acetaminophen (TYLENOL Take by mouth as 0 08/11/2019 ORAL) needed. etonogestreL (NEXPLANON) 1 each by implant 0 12/2112/20/2021 68 mg subdermal implant route continuously. documented as of this encounter ED Notes Sigrid Forbes M.D. - 07/29/2019 4:50 PM CDT [facility] EMERGENCY DEPARTMENT ENCOUNTER Patient Name: [...] of the incident with the reassuring ROS formerly [facility], [facility]1983 neuro system, I do not feel that [...] CDT eGFR-Black/Afric >90 >=60 07/29/2019 [facility] an Croatian mL/min/BSA 6:50 PM CDT Comment: ----ADDITIONAL INFORMATION---- [...] Organization Address City/State/ZIP Code Phon e Number [facility]- [address] [place] [address] [address] [place] [address] [place] [address] [address] [facility] (ABNORMAL) CBC without Differential (07/29/2019 6:21 PM CDT) [facility] Method Time Signature Hemoglobin 13.2 11.6 [...] Organization Address City/State/ZIP Code Phon e Number [facility]- [address] [place], [place] [address] [facility] [place] [place] [address] [facility] [address] DX Ankle Left [...] Sigrid Forbes M.D. IMG DIAGNOSTIC IMAGING PROCE [facility] CT Lumbar Spine by Reconstruction (07/29/2019 5:43 [...] LEFT tibia and fibula Sigrid Forbes M.D. [facility] DIAGNOSTIC IMAGING PROCE [...] (Given - Provider: Gurdeep Persaud(R)(CT) - Comment: [id number]) 100 mL, intravenous, Once in imaging, co [...] 1651 documented in this encounter Care Teams Prevention Rn Relationship Specialty Start Date End Date Elsewhere, Pcp PCP - General Family Medicine 01/08/18 01/12/21 documented as of this encounter
--- OUTSIDE RECORDS SUMMARY | 2022-06-20 18:51 | XMS_ITS | Encounter Summary ---
:1990 Author Organization [facility] Address [address] [place] [address] Care Team Providers Name Role Phone Elsewhere, Pcp Primary Care Provider Unavailable Reason for Visit Reason Comments Nasal Congestion pt presents concerned for po ssible sinus infection. c/o of facial pain, congestion, ear pain a nd throat pain. symptoms for approx one month. denies fevers. 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
--- OUTSIDE RECORDS SUMMARY | 2022-06-20 18:51 | XMS_ITS | Encounter Summary ---
:1990 Author Organization [facility] Address [address] [place] [address] Care Team Providers Name Role Phone Elsewhere, Pcp Primary Care Provider Unavailable Reason for Visit Reason Comments Sore Throat SX: in ER Sunday with josiane st inflammation; st started Encounter Details Date Type Department Care Team Description 07/26/2019 [facility] (Primary Dx) [place], [place] [address], [address] [place] [address] [phone] (Wo rk) Social History Tobacco Use Types [...] do you attend holiness or Never 2021 orthodoxy services? 

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
--- OUTSIDE RECORDS SUMMARY | 2022-06-20 18:52 | XMS_ITS | Encounter Summary ---
:1990 Author Organization [facility] Address [address] [place] [address] Care Team Providers Name Role Phone Elsewhere, Pcp Primary Care Provider Unavailable Reason for Visit Reason Comments Sinus Symptoms 3 wks ago; started with ST, then ears and facial pressure. Pt using NetiPot. Sore Throat strep exposure at work Encounter Details Date Type Department Care Team Description 05/08/2018 Office Visit Express Care in [facility] Arely Ferrell Sinu sitis [place], [place] RIGGING UP MAN, C.N.P. (Primary Dx) [address] [place] [phone] Social History Tobacco Use Types Packs/Day Years [...] do you attend denominational or Never 2021 latter day services? 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 Recently moved to [place]. REVIEW OF SYSTEMS Constitutional: Negative for fever. [...] Primary documented in this encounter Care Teams Shafting Worker Relationship Specialty Start Date End Date Elsewhere, Pcp PCP - General Family Medicine 01/08/18 01/12/21 documented as of this encounter
--- OUTSIDE RECORDS SUMMARY | 2022-06-20 18:52 | XMS_ITS | Encounter Summary ---
:1990 Author Organization [facility] Address [address] [place] [address] Care Team Providers Name Role Phone Unavailable Primary Care Provider Unavailable Encounter Details Date Type Department Care Team Description 06/14/2017 Hospital Encounter HX [facility] Essence Yin M.D. [address] [place], [place] [phone] (Wo rk) Social History [...] do you attend confucianist or Never 2021 zoroastrian services? 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 documented as of this encounter Last [...] 06/14/2017 9:06 PM CDT ED Depart Summary [facility] Emergency Department Clinical Discharge Summary PERSON INFORMATION Name DILLAN MATA Age 27 Years 1990 12:00 AM Sex Female Language Kyrgyz PCP PCP, ELSEWHERE Marital Status Unknown Visit Id Visit Reason Foot injury - Minor; FOOT PAIN Specialty Enc Type Emergency Med Service Emergency Medicine Referred by Track Group AAKASHMonica ED Discharge 06/14/2017 7:45 PM Tracking Id [id number] Checkout 06/14/2017 7:45 PM Checkin 06/14/2017 6:17 PM Acuity 4 -Less Urgent Dispo Type * Discharged to Home or Self Care Arrival 06/14/2017 6:17 PM Reg Status LOS 000 01:28 Address: [address] [place] [phone] Comment: PROVIDER INFORMATION Provider Role Provider Contact Time CHAVA KUHN LENS EXAMINER Nurse 06/14/17 18:44 CHU ADKINS MD ED Provider 06/14/17 18:52 ANDREW BROCK LENS EXAMINER Nurse 06/14/17 19:21 DIAGNOSIS Sprain Foot Initial L Comment: PATIENT EDUCATION INFORMATION Instructions: SPRAIN FOOT Follow up: With: Address: When: Follow up with primary care in 1 week if not improving. Return to the ED for increasing pain or swelling. Within As Needed Source: [facility] POWERCHART Document Id: [id number] Andrew Brock R.N. - 06/14/2017 9:06 PM CDT ED Discharge Instructions [address] [address] Name: DILLAN MATA Date of : 1990 12:00 AM Visit Date: 06/14/2017 6:17 PM [facility] Number: [phone] Address: [address] [facility] [phone] Primary Care Provider: PCPBHARATHI IMPORTANT: [facility] in [place] would like to thank you for allowing [...] become cold, blue, numb, or tingly ?? [phone] [facility], [address] [place] [address]. All rights reserved. This information is not [...] if you dont have one. Go to [email or web address] and click on Create Your Account. Then, follow the directions to complete the online form. Youll be asked for your [facility] number which you can find at the [...] arrange a ride home with a responsible constitution party. All, DILLAN MATA , or responsible constitution party have received this information and my [...] arrange a ride home with a responsible constitution party. I, DILLAN MATA , or responsible constitution party have received this information and my questions have been answered. I have discussed any challenges I see with this plan with the nurse or physician. Patient Signature or Responsible Constitution Party/Relationship Date Time Provider Signature Date Time This document has images extracted. Please consider using Clari for all your patient education needs. Source: [employer] Document Id: [id number] Andrew Brock R.N. - 06/14/2017 7:45 PM CDT ED Disposition Summary ED Disposition Summary Entered On: 06/14/2017 20:33 CDT Performed On: 06/14/2017 19:45 CDT by ANDREW BROCK LENS EXAMINER Disposition Summary Present in Room During Exam/Procedure : Alone Mode of Discharge : Ambulatory Transportation : Private vehicle Discharge From ED With : Home Med List Printed Discharge Instructions Given to Patient : Yes Patient Status at Discharge from ED : Improved 30 Minutes Critical Care : No ANDREW BROCK RN - 06/14/2017 20:33 CDT Source: [employer] Document Id: [id number] CDT!9 documented in this encounter Medications at [...] BROCK RN - 06/14/2017 21:05 CDT [facility] Document Id: [id number] CDT!18 Andrew Brock R.N. - 06/14/2017 7:30 [...] BROCK RN - 06/14/2017 22:10 CDT Source: [facility] POWERCHART Document Id: [id number] CDT!5 Andrew Brock R.N. - 06/14/2017 7:21 [...] BROCK RN - 06/14/2017 19:21 CDT [place] Coma Eye Opening Response [place] : Spontaneously Best Verbal Response [place] : Oriented Best Motor Response Sophie : [...] BROCK RN - 06/14/2017 19:21 CDT [facility]: [facility] Document Id: [id number] CDT!37 Chu Adkins M.D. - 06/14/2017 6:52 [...] Stat, Patient Bed, Once, 06/14/2017 18:53 CDT, [facility] Urology. Radiology results:* Final Report * [...] Transcribed by: ROSHAN Technologist: NAYANA ESPOSITO RT(R)(CT) [id number] This document has an image Result type: XR Foot Left 3 or more views Result date: June 14, 2017 19:14 CDT Result status: Auth (Verified) Result title: XR Foot Left 3 or more views Performed by: DAVID SEPULVEDA MD on June 14, 2017 19:18 CDT Verified by: DAVID SEPULVEDA MD on June 14, 2017 19:18 CDT Encounter info: [id number], [facility] Emergency, 06/14/2017 - . [...] ADKINS MD On: 06/14/2017 07:35 PM Source: [facility] POWERCHART Document Id: [id number]} Chava Kuhn R.N. - 06/14/2017 6:37 PM [...] PNED ; Probability: 0 ; Diagnosis Code: [id number] Triage Triage Treatments : Ice to affected [...] Ambulatory Track : Trauma Other Languages : Kyrgyz Vital Signs Assessed : Yes Treatments Prior [...] CDT DCP GENERIC CODE Tracking Group : [facility] ED Tracking Acuity : 4 -Less [...] Heart Rhythm : Regular Skin Color : [place] Skin Description : Normal Skin Temperature : [...] KUHN RN - 06/14/2017 18:37 CDT Source: [facility] Sunglass Document Id: [id number] CDT!3 documented in this encounter Miscellaneous Notes Miscellaneous - Andrew Brock RHarish - 06/14/2017 7:45 PM CDT Valuables/Belongings Valuables/Belongings Entered On: 06/14/2017 20:33 CDT Performed On: 06/14/2017 19:45 CDT by ANDREW BROCK RN Valuables/Belongings Belongings Sent Home With : All sent w/pt at d/c Home Medication Disposition : None brought in with patient ANDREW BROCK RN - 06/14/2017 20:32 CDT Source: [employer] Document Id: [id number] CDT!4 Miscellaneous - Conversion, Historical Provider Ser - 06/14/2017 7:45 PM CDT Coding Summary-Paper Based CODING DATE: 06/26/2017 FINAL AAKASH [place] [facility] STATUS: * Discharged to Home or [...] LORD Date Saved: 06/26/2017 09:17 am Source: [employer] Document Id: [id number] documented in this encounter Plan of Treatment [...]
--- OUTSIDE RECORDS SUMMARY | 2022-06-20 18:52 | XMS_ITS | Encounter Summary ---
:1990 Author Organization [facility] Address [address] [place] [address] Care Team Providers Name Role Phone Unavailable Primary Care Provider Unavailable Encounter Details Date Type Department Care Team Description 01/15/2017 Hospital Encounter HX [facility] Felix Guillen M.D. [address] [place], [place] [address] (Wo rk) Social History [...] do you attend jainism or Never 2021 worship services? 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 [address] Name: DILLAN MATA Date of : 1990 12:00 AM Visit Date: 01/15/2017 7:46 PM [facility] Number: [id number] Address: [address] [place] [address] Primary Care Provider: PCP, BHARATHI IMPORTANT: [facility] in [place] would like to thank you for allowing [...] becomes cold, blue, numb or tingly ?? [phone] Kerry [facility], [address] [place] [address], [place] [address]. All rights reserved. This information is not [...] dont have one. Go to [email or web address] and click on Create Your Account. Then, follow the directions to complete the online form. Youll be asked for your [facility] number which you can find at [...] ride home with a responsible constitution party. LARISSA Carrizales KALLIE , or responsible constitution party have received [...] ride home with a responsible constitution party. LARISSA Carrizales KALLIE or responsible constitution party have received this information and my questions have been answered. I have discussed any challenges I see with this plan with the nurse or physician. Patient Signature or Responsible Constitution Party/Relationship Date Time Provider Signature Date Time Source: [employer] Document Id: [id number] Angelica Sandra R.N. - 01/15/2017 11:20 PM CDT ED Depart Summary [facility] Emergency Department Clinical Discharge Summary PERSON INFORMATION Name DILLAN MATA Age 26 Years 1990 12:00 AM Sex Female Language Icelandic PCP PCP, ELSEWHERE Marital Status Unknown Visit Id Visit Reason Hand pain-swelling; SWOLLEN RIGHT HAND Specialty Enc Type Emergency Med Service Emergency Medicine Referred by Track Group MAQN ED Discharge 01/15/2017 11:10 PM Tracking Id [id number] Checkout 01/15/2017 11:10 PM Checkin 01/15/2017 7:46 PM Acuity 4 -Less Urgent Dispo Type * Discharged to Home or Self Care Arrival 01/15/2017 7:46 PM Reg Status LOS 000 03:24 Address: [address] [place] [address] Comment: PROVIDER INFORMATION Provider Role Provider Contact Time ANGELICA SANDRA ED Nurse 01/15/17 19:57 NIKOS MENDEZ MD ED Provider 01/15/17 20:09 DIAGNOSIS Contusion Hand Initial R Comment: PATIENT EDUCATION INFORMATION Instructions: CONTUSION, Hand Follow up: With: Address: When: Follow up with primary care provider Within As Needed Comments: Call for follow up appointment. If symptoms worsen. Source: [facility] POWERCHART Document Id: [id number] documented in this encounter Medications at Time [...] ANGELICA SANDRA - 01/15/2017 23:19 CDT Source: [employer] Document Id: [id number] CDT!9 Angelica Sandra R.N. - 01/15/2017 11:05 [...] ANGELICA SANDRA - 01/15/2017 23:19 CDT Source: [employer] Document Id: [id number] CDT!9 Angelica Sandra R.N. - 01/15/2017 11:02 [...] Motor Response Sophie : Obeys simple commands [place] Coma Score : 15 ANGELICA SANDRA 01/15/2017 23:02 CDT GI Reassess GI Patient Stated Symptoms : None ANGELICA SANDRA - 01/15/2017 23:02 CDT /OB Reassess Patient Stated Symptoms : None ANGELICA SANDRA - 01/15/2017 23:02 CDT Source: [employer] Document Id: [id number] CDT!34 Kim Bartholomew R.N. - 01/15/2017 10:00 PM CDT ED Nurse Reassess ED Nurse Reassess Entered On: 01/15/2017 22:00 CDT Performed On: 01/15/2017 22:00 CDT by KIM BARTHOLMOEW RN Pain Assessment Pain Symptoms : Yes [...] Brenda RN - 01/15/2017 22:00 CDT Source: [employer] Document Id: [id number] CDT!15 Nikos Mendez M.D. - 01/15/2017 9:52 [...] Stat, Patient Bed, Once, 01/15/2017 21:53 CDT, [facility] Urology. Radiology results:Emergency physician interpretation: Creator: Nikos Mendez Date: Jan 15, 2017 23:04:53 Subject: Preliminary ER Physician Findings (preliminary only - not final):Three-view x-ray of the right hand: Negative for fracture or dislocation. Brant Cortes Impression and Plan Diagnosis Contusion Hand Initial R (Discharge, Emergency medicine, Medical) Plan Condition: Stable. Disposition: Discharged: Time 01/15/2017 23:05:00, to home. Prescriptions: Prescription [facility] Pharmacy: ibuprofen 200 mg oral tablet (Prescribe): [...] MENDEZ MD On: 01/15/2017 11:07 PM Source: [facility] POWERCHART Document Id: {[id number]} Angelica Sandra R.N. - 01/15/2017 8:55 PM [...] Response Sophie : Oriented Best Motor Response [place] : Obeys simple commands Sophie Coma Score : 15 ANGELICA SANDRA 01/15/2017 20:55 CDT GI Reassess GI Patient Stated Symptoms : None ANGELICA SANDRA 01/15/2017 20:55 CDT Source: [facility] POWERCHART Document Id: [id number] CDT!3 Angelica Sandra R.N. - 01/15/2017 7:51 [...] PNED ; Probability: 0 ; Diagnosis Code: [id number] Triage Chief Complaint Description : Pt presents [...] vehicle, Ambulatory Track : Medical Languages : Icelandic Vital Signs Assessed : Yes GCS Assessed [...] kg/m2 ANGELICA SANDRA - 01/15/2017 19:51 CDT [place] Coma Eye Opening Response [place] : Spontaneously Best Verbal Response [place] : Oriented Best Motor Response [place] : Obeys simple commands Sophie Coma Score [...] None Behavioral Health Screen/Safety Assmt : No NAGELICA SANDRA 01/15/2017 19:51 CDT Gastrointestinal Nutrition ED [...] None ANGELICA SANDRA 01/15/2017 19:51 CDT Source: [employer] Document Id: [id number] CDT!117 documented in this encounter Miscellaneous Notes Miscellaneous - Conversion, Historical Provider Ser - 01/15/2017 11:10 PM CDT Coding Summary-Paper Based CODING DATE: 01/22/2017 FINAL [facility] STATUS: * Discharged to Home or [...] DUONG Date Saved: 01/22/2017 10:08 am Source: [employer] Document Id: [id number] Miscellaneous - Angelica Sandra RMaribellN. - 01/15/2017 11:05 PM CDT Valuables/Belongings Valuables/Belongings Entered On: 01/15/2017 23:20 CDT Performed On: 01/15/2017 23:05 CDT by ANGELICA SANDRA Valuables/Belongings Belongings Sent Home With : all belongings sent home with patient ANGELICA SANDRA - 01/15/2017 23:20 CDT Source: [employer] Document Id: [id number] CDT!3 documented in this encounter Plan of [...]
--- OUTSIDE RECORDS SUMMARY | 2022-06-20 18:52 | XMS_ITS | Encounter Summary ---
:1990 Author Organization [facility] Address [address] [place] [address] Care Team Providers Name Role Phone Elsewhere, Pcp Primary Care Provider Unavailable Reason for Visit Reason Comments Headache frontal and middle of head Earache Cipriano ear pain Sore Throat drainage Sinus Problem over 1 month Encounter Details Date Type Department Care Team Description 01/07/2018 Office Visit [facility] [place] FATOU Samuel, C.N.P., (Primary Dx) [address] [place] [address] Social History Tobacco Use Types Packs/Day Years [...] Date Recorded Female 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 She works at [employer] ([place] with several people throughout theday. She has [...] Primary documented in this encounter Care Teams Gum Puller Relationship Specialty Start Date End Date Elsewhere, Pcp PCP - General Family Medicine 01/08/18 01/12/21 documented as of this encounter
[2022-06-20 18:59] VITALS: BP 127/79; PULSE 86
[2022-06-20 20:02] LABS: Amnisure Rom* Negative
[2022-06-20 20:11] VITALS: RESP 20; TEMP 37.2
[2022-06-20 21:00] LABS: Appearance Urine Clear (Clear); Bilirubin Urine Negative (Negative); Blood Urine Negative (Negative); Color Urine Yellow (Yellow); Glucose Urine Negative (Negative); Ketones Urine 3+ (Negative); Leukocyte Esterase Urine Negative (Negative); Nitrite Urine Negative (Negative); Protein Urine Negative (Negative); Specific Gravity Urine >= 1.030 (1.000-1.030); Urobilinogen Urine 0.2 (0.2-1.0); pH Urine 5.5 (5.0-8.5)
[2022-06-20 21:09] LABS: RBC Urine 0-2 (0-2); Squamous Epithelial Cell Urine Moderate (None-Few)
[2022-06-20] MEDS: LACTATED RINGERS 1000 ML 1,000 ML 999 ML IV (22:25)
--- NOTE | 2022-06-21 01:04 | PC.OBNST ---
NST Note NST Note Start: 06/20/22 18:55 Freq: ONCE Status: Active Protocol: Document 06/21/22 00:58 KWAKU (Rec: 06/21/22 01:02 KWAKU [id number]) NST Note 3 Para (# of births) 1 EDC 08/14/22 Gestational Age In Weeks & Days 32 Weeks & 2 Days High Risk Factors High Blood Pressure - Gestational,Diabetes - Gestational Oral Hypoglycemics ,History of Labor/ Delivery Patient Presented with Complaint(s) of Contractions/cramping,Leaking fluid,Pain,Headache If Pain, describe location Patient complained of headache , abdominal pain, back pain and contractions Reactive Yes Appropriate for Gestational Age Yes KATHI Gautam, RN Date 06/21/22 Reactive Yes Appropriate for Gestational Age Yes KATHI Martinez RNC Date 06/21/22 OB NST charge Yes Complete NST Note via Write Note Yes The provider's electronic signature indicates the NST is reactive/appropriate for gestational age. *Note to provider: If an addendum is required, open the patient's chart and click on the note under the Nurse/Allied Health tab.
== END 2022-06-21 00:10 | disposition home or self-care (01) ==
LOC: OB OUT 18:47 → OB 18:48
PROVIDERS: Visit Provider Advanced Practice Midwife
DX: O47.03 False labor before 37 completed weeks of gestation, third trimester (principal); Z3A.32 32 weeks gestation of pregnancy
CPT/HCPCS: 59025; 81001; 84112; 99213; J7120

== ENCOUNTER 2022-06-22 13:57 | Outpatient (CLI) | payer MEDICAID, SELFPAY ==
--- OUTSIDE RECORDS SUMMARY | 2022-06-22 13:59 | XMS_ITS | Encounter Summary ---
:1990 Author Organization [facility] Address [address] [place] [address] Care Team Providers Name Role Phone Joel Anguiano MD Primary Care Provider Reason for Visit Reason Comments Sore Throat EARACHE left HEADACHE Encounter Details Date Type Department Care Team Description 10/05/2010 Office Visit [facility] Heydi Santana ( upper respiratory infection) (Primary Dx); Practice [facility] Hammer Sore throat; [address] Rhinitis; [place], [place] [address] [place], [place] TMJ disorder [phone] [id number] Social History Tobacco Use Types Packs/Day Years Used Date Smoking Tobacco: Never Alcohol Use Standard Drinks/Week Comments No 0 (1 standard drink = 0.6 oz pure alcoho l) Sex Assigned at Date Recorded Not on file documented as of this encounter Last Filed Vital Signs Vital Sign Reading Time Taken Comments Blood Pressure 116/74 10/05/2010 1:46 PM REGISTERED RADIATION THERAPIST Pulse 76 10/05/2010 1:46 PM REGISTERED RADIATION THERAPIST Temperature 37.1 ??C (98.7 ??F) 10/05/2010 1:46 PM REGISTERED RADIATION THERAPIST Respiratory Rate 16 10/05/2010 1:46 PM REGISTERED RADIATION THERAPIST Oxygen Saturation - - Inhaled Oxygen Concentration - - Weight 62 kg (136 lb 9.6 oz) 10/05/2010 1:46 PM REGISTERED RADIATION THERAPIST Height - - Body Mass Index - - documented in this encounter Patient Instructions Patient InstructionsHeydi Santana - 10/05/2010 2:09 PM CST 1. Upper respiratory infection Rest, increase fluids Tylenol or ibuprofen as needed for ear pain / fever Continue decongestants. flonase to help decreased congestion in the nose. Recheck in 3-5 days if not improving. 2. TMJ Warm compresses or cool compresses for 10-15 min on the jaw area. Ibuprofen with food or milk as needed for the pain, 600-800 mg every 6-8 hours. Avoid any chewy candy/gum/tough meats to chew. Heydi Santana PA-C STERED RADIATION THERAPIST documented in this encounter Progress Notes Sita Barker RN - 10/06/2010 4:17 PM REGISTERED RADIATION THERAPIST Quick Note: Letter sent. Hermniia Barker LPN Nurse for [facility] STERED RADIATION THERAPIST Heydi Santana - 10/06/2010 8:32 AM REGISTERED RADIATION THERAPIST Quick Note: Neg cx Heydi Santana PA-C STERED RADIATION THERAPIST Heydi Santana - 10/05/2010 2:17 PM REGISTERED RADIATION THERAPIST Quick Note: Reviewed neg strep with pt pending cx Heydi Santana PA-C STERED RADIATION THERAPIST Heydi Santnaa - 10/05/2010 11:45 AM CST Lulu Mata is a 20 yr old female with primary concern: sore throat congestion post nasal drip ear pressure sinus pressure fever: early in course unknown tmax Duration: 1-week(s) Significant positive medical hx: asthma - uses proair prn. Has not had to use any currently. Exposures: none History Tobacco Use Never Associated symptoms: General symptoms:fatigue HEENT symptoms: sore throat, nasal congestion, post nasal drainage and otalgia Bilateral Chest symptoms: none Abd/GI symptoms: none Red flag symptoms: none Objective Appears healthy and alert, comfortable BP 116/74 Pulse 76 Temp(Src) 98.7 ??F (37.1 ??C) (Oral) Resp 16 Wt 136 lb 9.6 oz (61.961 kg) LMP 09/17/2010 HEENT: EAC's/TM's normal, conjunctiva normal, no sinus tenderness, oropharynx normal, no significantcervical adenopathy, neck supple and bilateral jaw subluxation with palpation over the tmjs. Chest: heart exam normal; lungs clear Skin: no rash, no purpura/petechia Lab/xray data: rapid strep test: Negative Assessment 1. viral URI and rhinitis Rest, increase fluids Tylenol or ibuprofen as needed for ear pain / fever Continue decongestants. flonase to help decreased congestion in the nose. Recheck in 3-5 days if not improving. We discussed potential s.e. And a.e. Of the above medication(s). 2. TMJ Warm compresses or cool compresses for 10-15 min on the jaw area. Ibuprofen with food or milk as needed for the pain, 600-800 mg every 6-8 hours. Avoid any chewy candy/gum/tough meats to chew. Pt educated to speak with her dentist about bite guard/tmj Plan Symptomatic treatment and See prescribed medication(s) Call or return to clinic if these symptoms worsen or fail to improve as anticipated. Heydi Santana PA-C STERED RADIATION THERAPIST documented in this encounter Plan of Treatment Upcoming Encounters Date Type Specialty Care Team Description 06/30/2022 Telemedicine Diabetes Program Yahaira Arrieta RD N, LD, [facility]ES [address] [facility] N [id number] (Wo rk) 07/14/2022 Telemedicine Diabetes Program Yahaira Arrieta RD N, PAVAN, [facility]ES [address] [facility] ET [facility] N [id number] (Wo rk) documented as of this encounter Procedures Procedure Name Priority Date/Time Associated Diagnosis Comme nts STREP GRP A, RAPID Waiting 10/05/2010 1:52 PM Sore throat Res ults for this SCREEN REGISTERED RADIATION THERAPIST procedure are i n the results section. STREP GRP A, THROAT Routine 10/05/2010 1:52 PM Re sults for this CULTURE ONLY REGISTERED RADIATION THERAPIST procedure are i n the results section. documented in this encounter Results STREP GRP A, THROAT CULTURE ONLY (10/05/2010 1:52 PM REGISTERED RADIATION THERAPIST) [facility] gist Method Time Signature Grp A Culture Negative NEG [facility] Final Specimen Anatomical Collection Method Collection Time Receive d Time (Source) Location / / Volume Laterality 10/05/2010 1:52 PM 0 2:05 REGISTERED RADIATION THERAPIST PM REGISTERED RADIATION THERAPIST Heydi Santana PA-C LAB_1 Performing Organization Address City/[facility]/ZIP Code Phon e Number Social 2 Step [phone] [phone] STREP GRP A, RAPID SCREEN (10/05/2010 1:52 PM REGISTERED RADIATION THERAPIST) [facility] Method Time Signature Grp A Rapid Negative NEG [facility] Screen Specimen Anatomical Collection Method Collection Time Receive d Time (Source) Location / / Volume Laterality 10/05/2010 1:52 PM 0 2:05 REGISTERED RADIATION THERAPIST PM REGISTERED RADIATION THERAPIST Heydi Santana PA-C LAB_1 Performing Organization Address [facility] Phon e Number Social 2 Step [phone] [address] documented in this encounter Visit Diagnoses Diagnosis URI (upper respiratory infection) - Prim prosper Acute upper respiratory infections of un specified site Sore throat Acute pharyngitis Rhinitis Chronic rhinitis TMJ disorder Temporomandibular joint disorders, unspe cified documented in this encounter Care Teams Botanical Technical Officer Relationship Specialty Start Date End Date Joel Anguiano MD PCP - General 01/17/10 11/13/10 [address] [place] [address] documented as of this encounter
--- OUTSIDE RECORDS SUMMARY | 2022-06-22 13:59 | XMS_ITS | Encounter Summary ---
:1990 Author Organization [facility] Address [address], [place] [address] Care Team Providers Name Role Phone Unassigned, Provider Primary Care Provider Unavailable Reason for Visit Reason Comments SORE THROAT, cough, chest cold Encounter Details Date Type Department Care Team Description 10/19/2009 Office Visit [facility] axillary Sinusitis (Primary Dx); [place] [facility] Pharyngitis [address] [place], [place] [address] Social History Tobacco Use Types Packs/Day Years Used Date Smoking Tobacco: Never Assessed Sex Assigned at Date Recorded Not on file documented as of this encounter Last Filed Vital Signs Vital Sign Reading Time Taken Comments Blood Pressure 144/96 10/19/2009 7:00 PM BEN DAY ARTIST Pulse 78 10/19/2009 7:00 PM BEN DAY ARTIST Temperature 37.2 ??C (98.9 ??F) 10/19/2009 7:00 PM BEN DAY ARTIST Respiratory Rate 18 10/19/2009 7:00 PM BEN DAY ARTIST Oxygen Saturation - - Inhaled Oxygen Concentration - - Weight 64.6 kg (142 lb 6 oz) 10/19/2009 7:00 PM BEN DAY ARTIST Height - - Body Mass Index - - documented in this encounter Patient Instructions Patient InstructionsRyan Townsend - 10/19/2009 8:00 PM CST HP Sinusitis sheet given, emphasized saline rinses. Neti pot info and discussion given. DAY ARTIST documented in this encounter Progress Notes Xochilt Enriquez RN - 10/21/2009 6:14 PM BEN DAY ARTIST Quick Note: Strep culture results noted: Negative Nita Enriquez RN DAY ARTIST Ryan Townsend - 10/19/2009 7:28 PM CST SUBJECTIVE: Lulu Mata is a 19 yr female who complains of sinus and nasal congestion, sore throat, chest congestion, dry cough and chest pain during cough for 17 days. She denies a history of nausea or vomiting and denies a history of asthma. Patient does not smoke cigarettes. Allergy: Review of patient's allergies indicates no known allergies. No current outpatient prescriptions on file. OBJECTIVE: BP 144/96 Pulse 78 Temp(Src) 98.9 ??F (37.2 ??C) (Oral) Resp 18 Wt 142 lb 6 oz (64.581 kg) She appears well. Bilateral TMs are joiner-blue and undistorted. Throat and pharynx are erythematous without exudate. Neck supple. No adenopathy in the neck. Nose is congested. Maxillary sinuses are tender The chest is clear, without wheezes or rales. Rapid Strep Test: Negative ASSESSMENT: Maxillary sinusitis PLAN: Amoxicillin 1000 mg po BID for ten days. HP Sinusitis sheet given, emphasized saline rinses. Neti pot info and discussion given. Symptomatic therapy suggested: push fluids, rest and return to clinic if symptoms persist or worsen.Call or return to clinic prn if these symptoms worsen or fail to improve as anticipated. Ryan Townsend MD DAY ARTIST documented in this encounter Plan of Treatment Upcoming Encounters Date Type Specialty Care Team Description 06/30/2022 Telemedicine Diabetes Program Yahaira Arrieta, NATANALE N, LD, [facility] [address] [place] N [phone] (Elena bains) 07/14/2022 Telemedicine Diabetes Program Yahaira Arrieta RD N, LD, [facility] [address] Jose [place] N [id number] (Elena bains) documented as of this encounter Procedures Procedure Name Priority Date/Time Associated Diagnosis Comme nts STREP GRP A, RAPID Waiting 10/19/2009 7:18 PM Acute Pharyngiti s Results for this SCREEN BEN DAY ARTIST procedure are i n the results section. STREP GRP A, THROAT Routine 10/19/2009 7:18 PM Acute Pharyngit is Results for this CULTURE ONLY BEN DAY ARTIST procedure are i n the results section. documented in this encounter Results STREP GRP A, THROAT CULTURE ONLY (10/19/2009 7:18 PM BEN DAY ARTIST) about.me Method Time Signature Grp A Culture Negative NEG [facility] Final Specimen Anatomical Collection Method Collection Time Receive d Time (Source) Location / / Volume Laterality 10/19/2009 7:18 PM 9 7:22 BEN DAY ARTIST PM BEN DAY ARTIST Ryan Townsend MD LAB_1 Performing Organization Address [facility] Phon e Number Penxy [phone] [facility] [address] [place] [phone] STREP GRP A, RAPID SCREEN (10/19/2009 7:18 PM BEN DAY ARTIST) about.me Method Time Signature Grp A Rapid Negative NEG [facility] Screen Specimen Anatomical Collection Method Collection Time Receive d Time (Source) Location / / Volume Laterality 10/19/2009 7:18 PM 9 7:22 BEN DAY ARTIST PM BEN DAY ARTIST Ryan Townsend MD LAB_1 Performing Organization Address City/[facility] Phon e Number Penxy [phone] [facility] [address] [place] [phone] documented in this encounter Visit Diagnoses Diagnosis Acute maxillary sinusitis - Primary Acute pharyngitis documented in this encounter Care Teams Tank Truck Milk Receiver Relationship Specialty Start Date End Date Unassigned, Provider PCP - General 08/17/09 01/16/10 [address] [place] [address] documented as of this encounter
--- OUTSIDE RECORDS SUMMARY | 2022-06-22 13:59 | XMS_ITS | Encounter Summary ---
:1990 Author Organization [employer] Address [address], [place] [address] Care Team Providers Name Role Phone Heydi Santana PA-C Primary Care Provider [phone] Encounter Details Date Type Department Care Team Description 06/22/2022 Telemedicine [facility] [address] [facility] diabetes Endocrinology MD Reji mellitus (GDM), 3800 [facility] 3800 [facility] ant epartum, [address] gestational diabetes [facility] thod of control [phone] unspecified (Primary [phone] (Wo rk) Dx) Social History Tobacco Use Types Packs/Day Years Used Date Smoking Tobacco: Never Alcohol Use Standard Drinks/Week Comments Not Currently 0 (1 standard drink = 0.6 oz pure alcoho l) Sex Assigned at Date Recorded Not on file documented as of this encounter Progress Notes Estrella Etienne MD - 06/22/2022 1:05 PM CDT 06/22/2022 Chief Complaint Lulu Mata presents today stating her main problem is GDM History of present illness: Lulu Mata is a 32 y.o. female seen in consultation, referred by OBGYN. [facility] in [place], [place]. Planning to deliver at [facility]. Currently at 32 weeks and 3 days AOG CARLOS 08/14/2022 (0-1-1-1) Early - first trimester miscarriage at 6 weeks AOG 2012 - PT at 31 weeks due to complications with preeclampsia and GDM. LBB 5 lbs and 8 oz. Stillborn (low AGPAR) and had to be resuscitated. Diet-controlled. 2021 - current Planning to breastfeed. No prior history of prediabetes Maternal GM had pancreatic cancer and developed insulin-dependent diabetes after surgery. Mother has a thyroid condition Both parents have hyperlipidemia. Works at [email or web address] Plans to work until close to due date. 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 Test was abnormal/elevated 2out of the three values per patient recall. Currently on Metformin XR 500mg taken after dinner. Did not require metformin the first . Eats 3 meals in a day, mid-afternoon snack and bedtime snack. Rides bike to and from work. Walks a lot at work. No preeclampsia/elevated BP so far this . Monitoring BP at home. Taking a MVI. Allergies No Known Allergies Medications Outpatient Medications Prior to Visit Medication Sig Dispense Refill ALBUterol sulfate hfa (PROAIR HFA) 108 (90 BASE) MCG/ACT inhaler Inhale 2-4 Puffs by mouth every 4 hours as needed for Wheezing. (Patient not taking: Reported on 06/20/2022) 8.5 g 1 ALBUterol sulfate HFA 108 (90 BASE) MCG/ACT inhaler Inhale 2 puffs every 4 hours as needed for Shortness of Breath. (Patient not taking: Reported on 06/20/2022) 8 g 2 aspirin EC 81 MG enteric coated tablet Take 81 mg by mouth daily. Blood Glucose Monitoring Suppl (CONTOUR NEXT EZ) w/Device KIT CONTOUR NEXT TEST test strip 1 Each 4 times a day. famotidine (PEPCID) 40 MG tablet Take 40 mg by mouth two times a day. metFORMIN XR (GLUCOPHAGE XR) 500 MG 24 hour release tablet SMARTSI Tablet(s) By Mouth Every Evening Microlet Lancets lancets Inhale 4 times a day. plus vitamin Take 1 Tablet by mouth daily. triamcinolone acetonide (AKA KENALOG) 0.025 % cream Apply 1 Application topically 3 times daily. LWComment:appt needed for refill (Patient not taking: Reported on 06/20/2022) 80 No facility-administered medications prior to visit. \ Active Problems There is no problem list on file for this patient. PMH No past medical history on file. PSH No past surgical history on file. Family Hx No family history on file. Personal Hx Social History Socioeconomic History Marital status: Spouse name: Not on file Number of children: Not on file Years of education: Not on file Highest education level: Not on file Occupational History Not on file Tobacco Use Smoking status: Never Smokeless tobacco: Not on file Substance and Sexual Activity Alcohol use: Not Currently Drug use: No Sexual activity: Not Currently Other Topics Concern Bike Helmet Not Asked [place] Not Asked Exercise Not Asked Guns in home Not Asked Seat Belt Not Asked Special Diet Not Asked Weight Concern Not Asked Social History Narrative Not on file Social Determinants of Health Financial Resource Strain: Not on file Food Insecurity: Not on file Transportation Needs: Not on file Physical Activity: Not on file Intimate Partner Violence: Not on file Housing Stability: Not on file ROS All other systems reviewed and are negative Vitals Signs There were no vitals filed for this visit. Physical Exam GENERAL: looks well, in NAD, appears stated age HEENT: No dysmorphic facial features. No conjunctival icterus, injection, moist oral mucosa. NECK: trachea midline. Thyroid- non tender and no enlargement or palpable nodularity LYMPHATICS: no cervical or supra clavicular lymphadenopathy CARDIOVASCULAR: normal S1 S2, no murmurs, rubs, gallops RESPIRATORY: unlaboured breathing, good air entry bilaterally, no wheezes, crackles GASTROINTESTINAL: abdomen soft and non tender, no hepatosplenomegaly, normal bowel sounds. No violaceous striae MUSCULOSKELETAL: No peripheral edema. No cyanosis, clubbing. PSYCHIATRIC: AAO X 3, normal affect and mood. SKIN: warm and well perfused, no rashes in visible areas ENVIRONMENTAL COORDINATOR: No tremors. Normal sensation in all 4 extremities. Normal power of all 4 extremities, 5/5 both proximal and distal muscle groups. Reflexes 2+ in elbows and knees. Assessment and Plan Lulu Mata is a 32 y.o. year old female, who is being seen in consultation for recommendations regarding GDM. I advised patient as regards nature and course of GDM, as well as potential risk for developing overt diabetes mellitus in the future. Counseled patient on the need to adopt healthy lifestyle practicesand control of blood sugars to prevent gestational diabetes related maternal and complications. I also counseled patient that because GDM increased the likelihood of developing overt diabetes mellitus later in life, lifestyle modification through portion control, avoidance of concentrated sweets/fried fatty foods/overly processed foods, as well as regular aerobic exercise, are helpful in minimizing risk of progression. BGs reviewed. Checking BGs fasting and 2 hour post meals (see Mediat Tab for BG logs) and are all well controlled. Patient will meet with Diabetes Education and Convertible Sofa Bedspring Tester after this visit today for instructions as regards glucometer use, carb counting and meal planning. Check fingerstick glucoses fasting and 1 hour postmeals. Target BG <95 fasting and <140 one hours post-meals. Advised to call our office and/or IDC if with 3 numbers above goal. Continue Metformin XR 500mg with dinner. Continuediet and exercise. Further follow-up with Endocrinology and Diabetes Education will be determined based on patient's blood glucose control. Advised that she may need to be placed on pharmacologic therapy with glyburide or insulin, if blood sugars are not adequately controlled with lifestyle modification. Advised regularprenatal visits as well during today's visit. Plan of care discussed with patient. She verbalized understanding and is agreeable. No follow-ups on file. documented in this encounter Plan of Treatment Upcoming Encounters Date Type Specialty Care Team Description 06/30/2022 Telemedicine Diabetes Program Yahaira Arrieta RD N, LD, [facility] [address] [facility] N [id number] (Wo rk) 07/14/2022 Telemedicine Diabetes Program Yahaira Arrieta RD N, PAVAN, [facility] [address] [facility] N [id number] (Wo rk) documented as of this encounter Visit Diagnoses Diagnosis Gestational diabetes mellitus (GDM), ant epartum, gestational diabetes method of control unspecified - Primary documented in this encounter Care Teams Soap Drier Tender Relationship Specialty Start Date End Date Heydi Santana PA-C PCP - General 11/14/10 [address] [place] [address] documented as of this encounter
--- OUTSIDE RECORDS SUMMARY | 2022-06-22 13:59 | XMS_ITS | Encounter Summary ---
:1990 Author Organization [employer] Address [address] [place] [address] Care Team Providers Name Role Phone MaxHeydi christensen Jaquelin RENNER Primary Care Provider [phone] Encounter Details Date Type Department Care Team Description 02/20/2011 PN Conversion Only [place] [facility] Jose Carlos Aguirre MD [facility] 53[address] [facility] 5320 [facility] [address] [place], [place] [address] [place], [place] [phone] (Wo rk) Social History Tobacco Use Types Packs/Day Years Used Date Smoking Tobacco: Never Alcohol Use Standard Drinks/Week Comments No 0 (1 standard drink = 0.6 oz pure alcoho l) Sex Assigned at Date Recorded Not on file documented as of this encounter Plan of Treatment Upcoming Encounters Date Type Specialty Care Team Description 06/30/2022 Telemedicine Diabetes Program Yahaira Arrieta RD N, LD, [facility] [address] [facility] N [id number] (Wo rk) 07/14/2022 Telemedicine Diabetes Program Yahaira Arrieta RD N, LD, [facility] [address] [facility] N [id number] (Wo rk) documented as of this encounter Visit Diagnoses Not on filedocumented in this encounter Care Teams Solar Sales Specialist Relationship Specialty Start Date End Date Heydi Santana PA-C PCP - General 11/14/10 [address] [place] [address] documented as of this encounter
--- OUTSIDE RECORDS SUMMARY | 2022-06-22 13:59 | XMS_ITS | Encounter Summary ---
:1990 Author Organization [employer] Address [address] [place] [address] Care Team Providers Name Role Phone Unassigned, Provider Primary Care Provider Unavailable Reason for Visit Reason Comments ASTHMA Encounter Details Date Type Department Care Team Description 11/18/2009 Office Visit [place] [facility] Miguelito Anguiano MD URI (Upper Medicine [address] Respiratory [address] Infection) (Primary [place], [place] [address] [place], [place] Dx) [phone] [id number] Social History Tobacco Use Types Packs/Day Years Used Date Smoking Tobacco: Never Alcohol Use Standard Drinks/Week Comments No 0 (1 standard drink = 0.6 oz pure alcoho l) Sex Assigned at Date Recorded Not on file documented as of this encounter Last Filed Vital Signs Vital Sign Reading Time Taken Comments Blood Pressure 120/70 11/18/2009 2:07 PM COMPO CASTER Pulse 72 11/18/2009 2:07 PM COMPO CASTER Temperature - - Respiratory Rate 18 11/18/2009 2:07 PM COMPO CASTER Oxygen Saturation - - Inhaled Oxygen Concentration - - Weight 65.3 kg (144 lb) 11/18/2009 2:07 PM COMPO CASTER Height - - Body Mass Index - - documented in this encounter Progress Notes Joel Anguiano - 11/18/2009 2:29 PM CST Problem: Recent upper respiratory infection SUBJECTIVE: This patient was recently seen in an urgent care for a respiratory tract infection and had some wheezes all over lung gonzales. She was treated with some antibiotics. She was told to follow up with a doctor to make sure she does not have asthma. Currently she is feeling well. She does not smoke. . She does report that as this child she did have some trouble with atopic dermatitis. She occasionally has a small patch of eczema which she uses a steroid cream which is quite effective. No one in her familyhas asthma. Currently she is feeling quite well. Denies any cough, rhinitis, or difficulty breathing. OBJECTIVE: BP 120/70 Pulse 72 Resp 18 Wt 144 lb (65.318 kg) ENT-normal Chest clear to auscultation Cardiac exam regular sinus rhythm ASESSMENT: Resolving upper respiratory infection No evidence suggest asthma PLAN: Much reassurance, return to clinic p.r.n. Joel Anguiano MD 11/18/2009 O CASTER documented in this encounter Plan of Treatment Upcoming Encounters Date Type Specialty Care Team Description 06/30/2022 Telemedicine Diabetes Program Yahaira Arrieta, NATANAEL N, LD, [facility] 3800 [facility] N [id number] (Wo rk) 07/14/2022 Telemedicine Diabetes Program [facility]ahaira Arrieta RD N, LD, [facility] [address] [facility] N [id number] (Wo rk) documented as of this encounter Visit Diagnoses Diagnosis URI (upper respiratory infection) - Prim prosper Acute upper respiratory infections of un specified site documented in this encounter Care Teams Oracle Fusion Consultant Relationship Specialty Start Date End Date Unassigned, Provider PCP - General 08/17/09 01/16/10 [address] [place] [address] documented as of this encounter
--- OUTSIDE RECORDS SUMMARY | 2022-06-22 13:59 | XMS_ITS | Encounter Summary ---
:1990 Author Organization [employer] Address [address], [place] [address] Care Team Providers Name Role Phone Max, Heydi Hammer PA-C Primary Care Provider [phone] Reason for Visit Reason Comments APPOINTMENT REQUEST Referral for GDM Encounter Details Date Type Department Care Team Description 06/07/2022 Telephone [facility] 3800 Nurse, [id number] End APPOINTMENT REQUEST Endocrinology [address] (Referral for GDM) [address] [place] [address] [phone] Social History Tobacco Use Types Packs/Day Years Used Date Smoking Tobacco: Never Alcohol Use Standard Drinks/Week Comments No 0 (1 standard drink = 0.6 oz pure alcoho l) Sex Assigned at Date Recorded Not on file documented as of this encounter Nursing Notes Isela Aguilar - 06/14/2022 2:28 PM CDT Called patient who was going to an appointment so she did not have time to schedule. She stated she will call back to schedule when she can. Marguerite Ghosh - 06/07/2022 11:58 AM CDT Faxed referral rec'd from [facility] for GDM, records sent to [facility] doc documented in this encounter Plan of Treatment Upcoming Encounters Date Type Specialty Care Team Description 06/30/2022 Telemedicine Diabetes Program Yahaira Arrieta, NATANAEL N, LD, [facility] [address] [place] [address] [id number] (Wo rk) 07/14/2022 Telemedicine Diabetes Program Yahaira Arrieta RD N, LD, [facility] [address] [place] N [id number] (Wo rk) documented as of this encounter Visit Diagnoses Not on filedocumented in this encounter Care Teams Bag Machine Set Up Operator Relationship Specialty Start Date End Date Heydi Santana PA-C PCP - General 11/14/10 [address] [place] [address] documented as of this encounter
--- OUTSIDE RECORDS SUMMARY | 2022-06-22 13:59 | XMS_ITS | Clinical Summary ---
:1990 [facility] Address [address], [place] [address] Care Team Providers Name Role Phone Heydi Santana PA-C Primary Care Provider [phone] Source Comments You are receiving this document as you are listed as the primary care provider,follow-up provider, or the patient has been referred to you for consultation.This is in compliance with the Medicare and Medicaid EHR Incentive Program,which states Providers who transition their patient to another setting of careor provider of care or refers their patient to another provider of care shouldprovide summarycare record for each transition of care or referral. Animated Speech Allergies No known active allergies Medications Medication Sig Dispensed Refills Start Date End Date Status ALBUterol sulfate hfa Inhale 2-4 Puffs 8.5 g 1 05/25/2011 Active (PROAIR HFA) 108 (90 by mouth every 4 BASE) MCG/ACT hours as needed inhalerIndications: for Wheezing. Reactive airway disease (HRC) Additional Information Patient not taking. Reported on 06/20/2022 triamcinolone acetonide (AKA Apply 1 Application topically 80 0 01/24/2010 Active KENALOG) 0.025 % cream 3 times daily. LW Comment:appt needed for refill Additional Information Patient not taking. Reported on 06/20/2022 ALBUterol sulfate HFA 108 (90 Inhale 2 puffs every 4 hours 8 g 2 10/25/2011 Active BASE) MCG/ACT inhaler as needed for Shortness of Breath. Additional Information Patient not taking. Reported on 06/20/2022 Blood Glucose Monitoring Suppl 0 08/05/202 2 Active (CONTOUR NEXT EZ) w/Device KIT famotidine (PEPCID) 40 MG tablet Take 40 mg by mouth two times 0 04/14/2022 Active a day. CONTOUR NEXT TEST test strip 1 Each 4 times a day. 0 05/26/2022 Active Microlet Lancets lancets Inhale 4 times a day. 0 02/2022 Active metFORMIN XR (GLUCOPHAGE XR) 500 SMARTSI Tablet(s) By Mouth 0 06/06/2022 Active MG 24 hour release tablet Every Evening plus vitamin Take 1 Tablet by mouth daily. 0 05/01/2022 Active aspirin EC 81 MG enteric coated Take 81 mg by mouth daily. 0 Active tablet Encounters Date Type Specialty Care Team Description 06/22/2022 Telemedicine Endocrinology Estrella Etienne Gestat ional diabetes MD mellitus (GDM), antepartum, ges tational diabetes method of control unspeci fied (Primary Dx) 06/22/2022 Telemedicine Endocrinology Celina Deleon PA-C Gestati onal diabetes mellitus (GDM), antepartum, ges tational diabetes method of control unspeci fied (Primary Dx) 06/22/2022 Telephone Endocrinology Celina Deleon PA-C Other 06/16/2022 Notes/Orders Endocrinology Celina Deleon PA-C Gestati onal diabetes mellitus (GDM), antepartum, ges tational diabetes method of control unspeci fied (Primary Dx) 06/07/2022 Telephone Endocrinology Nurse, [id number] End APPOINTMEN T REQUEST (Referral for G DM) from Last 3 Months Immunizations Name Administration Dates Next Due HepB Ped/Adol (0-18 yrs) 02/22/2001, 12/07/2000, 10/03/2000 Influenza, Unspecified Formulation 09/08/2003 Td 10/03/2000 Social History Tobacco Use Types Packs/Day Years Used Date Smoking Tobacco: Never Tobacco Cessation: Counseling Given: Not Answered Alcohol Use Standard Drinks/Week Comments Not Currently 0 (1 standard drink = 0.6 oz pure alcoho l) Sex Assigned at Date Recorded Not on file Last Filed Vital Signs Vital Sign Reading Time Taken Comments Blood Pressure 120/68 03/12/2012 12:58 PM CDT Pulse 80 03/12/2012 12:58 PM CDT Temperature 37.2 ??C (99 ??F) 10/25/2011 1:10 PM PHYSICAL EDUCATION SPECIALIST Respiratory Rate 16 10/25/2011 1:10 PM PHYSICAL EDUCATION SPECIALIST Oxygen Saturation 99% 10/25/2011 1:10 PM PHYSICAL EDUCATION SPECIALIST Inhaled Oxygen Concentration - - Weight 65.3 kg (144 lb) 03/12/2012 12:58 PM CDT Height - - Body Mass Index - - Plan of Treatment Upcoming Encounters Date Type Specialty Care Team Description 06/30/2022 Telemedicine Diabetes Program Yahaira Arrieta, NATANAEL N, LD, [facility] [address] [facility] N [id number] (Wo rk) 07/14/2022 Telemedicine Diabetes Program Yahaira Arrieta RD N, LD, [facility] [address] [facility] N [id number] (Wo rk) Health Maintenance Due Date Last Done Comments Cervical Cancer Screening 1990 Due Hep C Screening (Preventive 1990 Services) COVID-19 Vaccine (#1) 1990 HIV Screening (Preventive 2005 Services) Adult Preventive Visit 2007 Influenza (#1) 2022 12/16/2020, 07/10/2012, 07/10/2012, Additional history exists DTaP/Tdap/Td (8 - Tdap) 06/02/2032 06/02/2022, 09/03/2012, 10/03/2000, Additional history exists Zoster/Shingles (1 of 2) 2039 HepB Completed 02/22/2001, 12/07/2000, 10/03/2000 HPV Vaccine Aged Out No longer eligib le based on patient 's age to complete this topic HepA Aged Out No longer eligib le based on patient 's age to complete this topic Hib Aged Out No longer eligib le based on patient 's age to complete this topic IPV (Polio) Aged Out No longer eligib le based on patient 's age to complete this topic MCV4 Aged Out No longer eligib le based on patient 's age to complete this topic Pneumococcal Aged Out No longer eligib le based on patient 's age to complete this topic Insurance Payer Benefit Plan Subscriber ID Effective Phone Address Typ e / Group Dates UCARE UCARE MNCARE [id number] 2011-Prese [phone] CLAIMS Medicaid nt 24 [address] [place] [address] [facility] [id number] 2011-Pre Medicaid MNCARE sent Lulu Mata Personal/Family Self 1990 [address] [facility] (Home) [place], [place] [phone] (Work) Lulu Mata Personal/Family Self 1990 [address] [place] (Home) DEVORAH MCINTOSH [phone] MARIEL MCCONNELL (Work) [phone] Care Teams Transmission Tester Relationship Specialty Start Date End Date Heydi Santana PA-C PCP - General 11/14/10 [address] [place], [place] [id number]
--- OUTSIDE RECORDS SUMMARY | 2022-06-22 13:59 | XMS_ITS | Encounter Summary ---
:1990 Author Organization [employer] Address [address] [address] Care Team Providers Name Role Phone Heydi Santana Jaquelin RENNER Primary Care Provider [phone] Reason for Visit Reason Comments Test Request Encounter Details Date Type Department Care Team Description 03/12/2012 Office Visit Zack Quintanilla Misse d period (Primary Dx); Medicine , incidental [address] [facility] [address] [place] [address] [place] [phone] [address] Social History Tobacco Use Types Packs/Day Years [...] Pulse 80 03/12/2012 12:58 PM CDT Temperature - - Respiratory Rate - - Oxygen Saturation - - Inhaled Oxygen Concentration - - Weight 65.3 kg (144 lb) 03/12/2012 12:58 PM CDT Height - - Body Mass Index - - documented in this encounter Progress Notes Zack Yun MD - 03/12/2012 2:04 PM CDT Progress Notes signed by Zack Yun MD at 03/13/12 0954 Author: Zack Yun MD Service: (none) Author Type: Physician Filed: 03/13/12925 Note Time: 03/12/12 140 Status: Signed Ordnance Artificer Helper: Zack Yun MD (Physician) NAME: DILLAN MATA MR#: [id number] CSN: [id number] AUTHENTICATING CLINICIAN: Zack Yun MD CONFIRM #: [id number] LOC: 3602 CLINIC PROGRESS NOTE DATE OF VISIT: 03/12/2012 : 1990 SUBJECTIVE: Dillan is a 21-year-old female who comes in today with chief complaint of missed period. She says that she has not had a period since December and she is on the control pill. She is not sure what pill. She is sexually active. She says that she remembers to take the pill pretty much every single day. She says she sets her phone alarm to go off to remind her to take it each day. She says she has a few pills left with her current pill pack. She just wants to make sure she is not . She is otherwise generally feeling well. ALLERGIES: None. PAST MEDICAL HISTORY: Reactive airway disease. MEDICATIONS: control pill. OBJECTIVE: Blood pressure 120/68, pulse is 80, weight 144 pounds. test is negative. ASSESSMENT AND PLAN: Irregular menstrual period/missed period. The patient had a negative test. She does have what sounds like a few or several more days of current pill pack left. It may be that she starts bleeding and having her period today or tomorrow. It would not be a surprise with the timing of her pill pack and that she just missed 1 period. If that is the case, then I am not too concerned. It sounds like she is taking the pills regularly, but if she continues not to have a period, then she needs to see 1 of the gynecologists and I let her know this. She is going to return as needed. SJC:MEDPérez C: CONFIRM #: [id number] documented in this encounter Plan of Treatment Upcoming Encounters Date Type Specialty Care Team Description 06/30/2022 Telemedicine Diabetes Program Yahaira Arrieta RD N, LD, [facility] [address] [place] N [id number] (Wo rk) 07/14/2022 Telemedicine Diabetes Program Yahaira Arrieta RD N, LD, [facility] [address] [place] N [id number] (Wo rk) documented as of this encounter Visit Diagnoses Diagnosis Missed period - Primary Irregular menstrual cycle , incidental state, incidental documented in this encounter Care Teams First Grade Teacher Relationship Specialty Start Date End Date Heydi Santana PA-C PCP - General 11/14/10 [address] [place] [address] documented as of this encounter
--- OUTSIDE RECORDS SUMMARY | 2022-06-22 13:59 | XMS_ITS | Encounter Summary ---
:1990 Author Organization [email or web address] Address [address] [place] [address] Care Team Providers Name Role Phone Heydi Santana PA-C Primary Care Provider [phone] Reason for Referral Consult/Transfer Care (Routine) - New Request Specialty Diagnoses / Procedures Referred By Contact Refer red To Contact Diagnoses Gestational diabetes mellitus (GDM), antepartum, gestational diabetes method of control unspecified Celina Deleon PA-C [address] [place], [place] [address] Referral ID Status Reason Start Date Expiration Date Visits V isits Requested Authorized [id number] New Request 06/16/2022 09/15/2023 1 1 Scheduling Instructions Your provider has recommended an appoint ment with [facility]. You may call [phone] to schedule yo ur appointment. We suggest you call your health insurance company about your cove rage and benefits for this appointment. Encounter Details Date Type Department Care Team Description 06/16/2022 Notes/Orders [facility] [address] Celina Deleon PA-C Gestational diabetes Endocrinology [address] mellitus (GDM), [address] antepartum, [address] [place], [place] [address] method of control [id number] unspecified (Primary [phone] Dx) Social History Tobacco Use Types Packs/Day Years Used Date Smoking Tobacco: Never Alcohol Use Standard Drinks/Week Comments No 0 (1 standard drink = 0.6 oz pure alcoho l) Sex Assigned at Date Recorded Not on file documented as of this encounter Progress Notes HarishAmbika - 06/16/2022 10:21 AM CDT Kuldeep Patrick, Please complete pended IDC referral for Gestational Diabetes education. Thank you, Ambika Dillard Harish 10:21 AM 06/16/2022 documented in this encounter Plan of Treatment Upcoming Encounters Date Type Specialty Care Team Description 06/30/2022 Telemedicine Diabetes Program Yahaira Arrieta, NATANAEL N, LD, [facility] [address] [facility] N [id number] (Wo rk) 07/14/2022 Telemedicine Diabetes Program Yahaira Arrieta RD N, LD, [facility] [address] [facility] N [id number] (Wo rk) Scheduled Referrals Name Type Priority Associated Diagnoses [facility] Referral Routine Gestational diabetes O rdered: 06/16/2022 Visit mellitus (GDM), antepartum, gestational diabetes method of control unspecified documented as of this encounter Visit Diagnoses Diagnosis Gestational diabetes mellitus (GDM), ant epartum, gestational diabetes method of control unspecified - Primary documented in this encounter Care Teams Rug Dyer Relationship Specialty Start Date End Date Heydi Santana PA-C PCP - General 11/14/10 [address] [place] [address] documented as of this encounter
--- OUTSIDE RECORDS SUMMARY | 2022-06-22 13:59 | XMS_ITS | Encounter Summary ---
:1990 Author Organization [employer] Address [address] [place] [address] Care Team Providers Name Role Phone Joel Anguiano MD Primary Care Provider Reason for Visit Reason Comments CONGESTION, NASAL Sore Throat EARACHE Encounter Details Date Type Department Care Team Description 04/30/2010 Office Visit [facility] Apple Sore roat (Primary Dx); [place] URI (Upper Respiratory Infec tion) [address] [place], [place] [address] Social History Tobacco Use Types Packs/Day Years Used Date Smoking Tobacco: Never Alcohol Use Standard Drinks/Week Comments No 0 (1 standard drink = 0.6 oz pure alcoho l) Sex Assigned at Date Recorded Not on file documented as of this encounter Last Filed Vital Signs Vital Sign Reading Time Taken Comments Blood Pressure 116/78 04/30/2010 12:16 PM CDT Pulse 74 04/30/2010 12:16 PM CDT Temperature 37.5 ??C (99.5 ??F) 04/30/2010 12:16 PM CDT Respiratory Rate 16 04/30/2010 12:16 PM CDT Oxygen Saturation - - Inhaled Oxygen Concentration - - Weight 62.3 kg (137 lb 6.4 oz) 04/30/2010 12:16 PM CDT Height - - Body Mass Index - - documented in this encounter Progress Notes Alycia Hernadez - 04/30/2010 1:06 PM CDT SUBJECTIVE: 20-year-old female who comes in stating that she has had some nasal congestion and popping in her right ear for last week. She has also had a sore throat during this time. She denies any strep exposure, or any fever. Patient was told to try many pots and she thinks that is helping somewhat. She does have a history sinus infections although she has not sure that this is the same symptoms. She denies any nasal drainage or discharge to some more congestion. OBJECTIVE: BP 116/78 Pulse 74 Temp(Src) 99.5 ??F (37.5 ??C) (Tympanic) Resp 16 Wt 137 lb 6.4 oz (62.324kg) 20-year-old female who is awake and cooperative. She is breathing easily however she does follow nasal congested. HEENT-normocephalic, TMs look normal, throat looks normal, there is no cervical adenopathy. Rapid strep test negative, throat culture pending ASSESSMENT: Pharyngitis, mild upper respiratory infection PLAN: Treat the symptoms as necessary. If the throat culture is positive we will notify her for an antibiotic. documented in this encounter Plan of Treatment Upcoming Encounters Date Type Specialty Care Team Description 06/30/2022 Telemedicine Diabetes Program Yahaira Arrieta, NATANAEL N, LD, [facility] [address] [facility] [facility] [id number] (Wo rk) 07/14/2022 Telemedicine Diabetes Program Yahaira Arrieta RD N, LD, [facility] [address] [facility] [facility] N [id number] (Wo rk) documented as of this encounter Procedures Procedure Name Priority Date/Time Associated Diagnosis Comme nts STREP GRP A, RAPID Waiting 04/30/2010 12:27 PM Sore Throat Re sults for this SCREEN CDT procedure are i n the results section. STREP GRP A, THROAT Routine 04/30/2010 12:27 PM R esults for this CULTURE ONLY CDT procedure are i n the results section. documented in this encounter Results STREP GRP A, THROAT CULTURE ONLY (04/30/2010 12:27 PM CDT) [employer] gist Method Time Signature Grp A Culture Negative NEG [facility] Final Specimen Anatomical Collection Method Collection Time Receive d Time (Source) Location / / Volume Laterality 04/30/2010 12:27 04/30/2010 PM CDT 12:35 PM CDT Alycia Hernadez MD LAB_1 Performing Organization Address City/[facility] Phon e Number [facility] [phone] [facility] [address] [place] [phone] STREP GRP A, RAPID SCREEN (04/30/2010 12:27 PM CDT) [facility] Method Time Signature Grp A Rapid Negative NEG [facility] Screen Specimen Anatomical Collection Method Collection Time Receive d Time (Source) Location / / Volume Laterality 04/30/2010 12:27 04/30/2010 PM CDT 12:35 PM CDT Alycia Hernadez MD LAB_1 Performing Organization Address City/[facility] Phon e Number [facility] [phone] [phone] documented in this encounter Visit Diagnoses Diagnosis Sore throat - Primary Acute pharyngitis URI (upper respiratory infection) Acute upper respiratory infections of un specified site documented in this encounter Care Teams Gas Turbine Powerplant Mechanic Relationship Specialty Start Date End Date Joel Anguiano MD PCP - General 01/17/10 11/13/10 [address] [place] [address] documented as of this encounter
--- OUTSIDE RECORDS SUMMARY | 2022-06-22 13:59 | XMS_ITS | Encounter Summary ---
:1990 Author Organization [employer] Address [address] [place] [address] Care Team Providers Name Role Phone Max Heydi Jaquelin RENNER Primary Care Provider [phone] Reason for Visit Reason Comments Sore Throat Encounter Details Date Type Department Care Team Description 02/11/2011 Office Visit [facility] Apple Sore [facility] (Primary Dx) [address] [address] Social History Tobacco Use Types Packs/Day Years Used Date Smoking Tobacco: Never Alcohol Use Standard Drinks/Week Comments No 0 (1 standard drink = 0.6 oz pure alcoho l) Sex Assigned at Date Recorded Not on file documented as of this encounter Last Filed Vital Signs Vital Sign Reading Time Taken Comments Blood Pressure 126/80 02/11/2011 3:57 PM CDT Pulse 100 02/11/2011 3:57 PM CDT Temperature 37.9 ??C (100.3 ??F) 02/11/2011 3:57 PM CDT Respiratory Rate 22 02/11/2011 3:57 PM CDT Oxygen Saturation - - Inhaled Oxygen Concentration - - Weight 63 kg (139 lb) 02/11/2011 3:57 PM CDT Height - - Body Mass Index - - documented in this encounter Patient Instructions Patient InstructionsPatricia Antonio APRN, MIGUELANGEL - 02/11/2011 4:14 PM CDT Return if symptoms worsen, no improvement in 1 week or not completely resolved in 2 weeks. Further recommendations dependent on throat cx results. documented in this encounter Progress Notes Babita Mccarty RN - 02/12/2011 4:58 PM CDT Quick Note: Results noted Babita Ryan RN 02/12/2011, 4:58 PM Patricia Antonio APRN, CNP - 02/11/2011 4:24 PM CDT SUBJECTIVE: 20-year-old female who presents with sore throat, feeling hot and cold, and ears popping for the past few days. Denies any fatigue or body aches. Has no past history of strep infections in no known exposure. On Flonase and Kenalog cream. No medication allergies. Does not smoke. Has had infectious mononucleosis previously confirmed by blood test. OBJECTIVE: BP 126/80 Pulse 100 Temp(Src) 100.3 ??F (37.9 ??C) (Oral) Resp 22 Wt 139 lb (63.05 kg) Repeat pulse is 80 and regular. Temp is 100.3. Other vital signs are normal. Pleasant female in no acute distress.Ear canals are without erythema or exudate. Tympanic membranes are without redness or bulging and light reflex is present. No fluid line noted. Nasal passages are pale with clear secretions. Throat is red without exudate. Buccal mucosa of the mouth is normal. There is no cervical adenopathy. Heart has a normal sinus rhythm without clicks or murmurs. Rapid strep is negative. Throat culture obtained. ASSESSMENT: Pharyngitis. PLAN: Symptomatic care. Odqu-iml-vzrperu Tylenol or ibuprofen 4 times a day when necessary fever. Further recommendations dependent on throat culture results. Return if symptoms worsen, no improvement in oneweek, are not completely resolved in two weeks. All of this is discussed with the patient and the patient acknowledges understanding. Patricia Canales NP documented in this encounter Plan of Treatment Upcoming Encounters Date Type Specialty Care Team Description 06/30/2022 Telemedicine Diabetes Program HanhYahaira mondragon, RD N, LD, [facility] [address] [place] N [id number] (Wo rk) 07/14/2022 Telemedicine Diabetes Program Yahaira Arrieta, NATANAEL N, LD, [facility] [address] [place] N [id number] (Wo rk) documented as of this encounter Procedures Procedure Name Priority Date/Time Associated Diagnosis Comme nts STREP GRP A, RAPID Waiting 02/11/2011 3:33 PM Sore throat Res ults for this SCREEN CDT procedure are i n the results section. STREP GRP A, THROAT Routine 02/11/2011 3:33 PM Re sults for this CULTURE ONLY CDT procedure are i n the results section. documented in this encounter Results STREP GRP A, THROAT CULTURE ONLY (02/11/2011 3:33 PM CDT) [employer] Method Time Signature Grp A Culture Negative [facility] Final Specimen Anatomical Collection Method Collection Time Receive d Time (Source) Location / / Volume Laterality 02/11/2011 3:33 PM 1 3:57 CDT PM CDT Belkis Sanchez APRN, CNP LAB_1 Performing Organization Address [facility] Phon e Number [facility] [phone] [facility] [address] [place] [phone] STREP GRP A, RAPID SCREEN (02/11/2011 3:33 PM CDT) [employer] Method Time Signature Grp A Rapid Negative [facility] Screen Specimen Anatomical Collection Method Collection Time Receive d Time (Source) Location / / Volume Laterality 02/11/2011 3:33 PM 1 3:57 CDT PM CDT Belkis Sanchez APRN HAND TACKER LAB_1 Performing Organization Address City/[facility] Phon e Number [facility] [phone] [facility] [address] [phone] documented in this encounter Visit Diagnoses Diagnosis Sore throat - Primary Acute pharyngitis documented in this encounter Care Teams Top Distribution Executive Relationship Specialty Start Date End Date Heydi Santana PA-C PCP - General 11/14/10 [address] [place] [address] documented as of this encounter
--- OUTSIDE RECORDS SUMMARY | 2022-06-22 13:59 | XMS_ITS | Encounter Summary ---
:1990 Author Organization [employer] Address [address], [place] [address] Care Team Providers Name Role Phone Max Heydi Hammer PA-C Primary Care Provider [phone] Encounter Details Date Type Department Care Team Description 03/12/2012 Lab Visit [facility] , incidental [address] [place] [address] Social History Tobacco Use Types Packs/Day [...] Arrieta RD N, LD, [facility] [address] [facility] N [id number] (Wo rk) 07/14/2022 Telemedicine Diabetes Program Yahaira Arrieta RD N, LD, [facility] [address] [facility] N [id number] (Wo rk) documented as of this encounter Procedures Procedure Name Priority Date/Time Associated Diagnosis Comme nts TEST Routine 03/12/2012 1:06 PM , Results for this (URINE) CDT incidental procedure are i n the results section. documented in this encounter Results Test (Urine) (03/12/2012 1:06 PM CDT) Analysis Performed At Patho logist Time Signature Urine Negative [facility] Test Specimen Anatomical Collection Method Collection Time Receive d Time (Source) Location / / Volume Laterality 03/12/2012 1:06 PM 2 1:06 CDT PM CDT Narrative [facility] - 03/12/2012 1:33 PM CDT Performed at [facility], [address] [place] [address] Zack Yun MD LAB_1 Performing Organization Address City/State/ZIP Code Phon e Number [facility] documented in this encounter Visit Diagnoses Diagnosis , incidental state, incidental documented in this encounter Care Teams Car Wash Supervisor Relationship Specialty Start Date End Date Heydi Santana PA-C PCP - General 11/14/10 [address] [place] [address] documented as of this encounter
--- OUTSIDE RECORDS SUMMARY | 2022-06-22 13:59 | XMS_ITS | Encounter Summary ---
:1990 Author Organization [employer] Address [address], [place] [address] Care Team Providers Name Role Phone Heydi Santana PA-C Primary Care Provider [phone] Reason for Visit Reason Comments FOLLOW-UP,DIABETES Encounter Details Date Type Department Care Team Description 06/22/2022 Telemedicine [facility] [address] Celina Deleon PA-C Gestational diabetes Endocrinology [address] mellitus (GDM), [address] antepartum, [address] [place], [place] [address] method of control [id number] unspecified (Primary [phone] Dx) Social History Tobacco Use Types Packs/Day Years Used Date Smoking Tobacco: Never Tobacco Cessation: Counseling Given: Not Answered Alcohol Use Standard Drinks/Week Comments Not Currently 0 (1 standard drink = 0.6 oz pure alcoho l) Sex Assigned at Date Recorded Not on file documented as of this encounter Progress Notes Dali Sims, RN - 06/22/2022 8:00 AM CDT 06/20/22 @ 3:17 Left VM for patient to call back for chart prep Kristel Butterfield RN - 06/22/2022 8:00 AM CDT Pre-Visit Planning for Phone/Video Visit: Diabetes Pre-visit planning completed. Reviewed the following: Medications (pended refills) Pharmacy Allergies Last foot & eye exam Tobacco/alcohol use Current Diabetes Medications Metormin Reported Glucose Results: Pt test 4x daily, 2hr post meals. She will accept invitation to send Bg's over, please check for this. Concerns: NONE Celina Deleon PA-C - 06/22/2022 8:00 AM CDT Images from the original note were not included. [facility]: [address] [place] [address] [phone], Nurse Line: [phone] Gestational Diabetes Visit Note June 22, 2022 Subjective: HPI: Lulu Mata is a 32 y.o. female who is here for evaluation and management of GDM. See belowfor lab results. [facility]well link sent at 8am. Patient not connected to [facility] at 8:05am. Called x 1 via doximity at 8:06am. No answer. Patient not connected to [facility] at 8:12am. Called x 2 via doximity at 8:13am. No answer. LMTCB. Unable to contact patient at time of scheduled visit, despite multiple attempts. No show. Routing tofrontline to reschedule. Celina Deleon PA-C Adult Endocrinology documented in this encounter Plan of Treatment Upcoming Encounters Date Type Specialty Care Team Description 06/30/2022 Telemedicine Diabetes Program Yahaira Arrieta RD N, LD, [facility] [address] [facility] [address] N [id number] (Wo rk) 07/14/2022 Telemedicine Diabetes Program Yahaira Arrieta RD N, LD, [facility] [address] [facility] N [id number] (Wo rk) documented as of this encounter Visit Diagnoses Diagnosis Gestational diabetes mellitus (GDM), ant epartum, gestational diabetes method of control unspecified - Primary documented in this encounter Care Teams Ecological Risk Assessor Relationship Specialty Start Date End Date Heydi Santana PA-C PCP - General 11/14/10 [address] [place] [address] documented as of this encounter
--- OUTSIDE RECORDS SUMMARY | 2022-06-22 13:59 | XMS_ITS | Encounter Summary ---
:1990 Author Organization [employer] Address [address] [address] Care Team Providers Name Role Phone Heydi Santana PA-C Primary Care Provider [phone] Reason for Visit Reason Comments Other Encounter Details Date Type Department Care Team Description 06/22/2022 Telephone [facility] [address] Celina Deleon PA-C Other Endocrinology [address] [place] [address] [place] [address] [phone] Social History Tobacco Use Types Packs/Day Years Used Date Smoking Tobacco: Never Alcohol Use Standard Drinks/Week Comments Not Currently 0 (1 standard drink = 0.6 oz pure alcoho l) Sex Assigned at Date Recorded Not on file documented as of this encounter Nursing Notes Marcy Thomas RN - 06/22/2022 8:35 AM CDT Patient is calling to report that she had forgotten her phone at home and was not able to attend hervideo visit. By the time she biked home to get it, it was already 8:15 and it was too late. The patient was transferred to [facility] to reschedule. Patient as trying to get in again later today. documented in this encounter Plan of Treatment Upcoming Encounters Date Type Specialty Care Team Description 06/30/2022 Telemedicine Diabetes Program Yahaira Arrieta RD N, LD, [facility] [address] [place] [address] [id number] (Wo rk) 07/14/2022 Telemedicine Diabetes Program Yahaira Arrieta RD N, LD, [facility] [address] [place] N [id number] (Wo rk) documented as of this encounter Visit Diagnoses Not on filedocumented in this encounter Care Teams Pv Installer Tech Relationship Specialty Start Date End Date Heydi Santana PA-C PCP - General 11/14/10 [address] [place] [address] documented as of this encounter
--- OUTSIDE RECORDS SUMMARY | 2022-06-22 13:59 | XMS_ITS | Encounter Summary ---
:1990 Author Organization [employer] Address [address] [place] [address] Care Team Providers Name Role Phone Joel Anguiano MD Primary Care Provider Reason for Visit Reason Comments SKIN PROBLEM MOLE under rt arm Encounter Details Date Type Department Care Team Description 06/30/2010 Office Visit [facility] Sheng Leblanc D ermatitis (Primary Dx); Medicine MD Gerardo [address] [place], [place] [address] [place], [place] [phone] Social History Tobacco Use Types Packs/Day Years Used Date Smoking Tobacco: Never Alcohol Use Standard Drinks/Week Comments No 0 (1 standard drink = 0.6 oz pure alcoho l) Sex Assigned at Date Recorded Not on file documented as of this encounter Last Filed Vital Signs Vital Sign Reading Time Taken Comments Blood Pressure 110/60 06/30/2010 10:55 AM CDT Pulse 66 06/30/2010 10:55 AM CDT Temperature 37 ??C (98.6 ??F) 06/30/2010 10:55 AM CDT Respiratory Rate - - Oxygen Saturation 98% 06/30/2010 10:55 AM CDT Inhaled Oxygen Concentration - - Weight 61.7 kg (136 lb) 06/30/2010 10:55 AM CDT Height - - Body Mass Index - - documented in this encounter Patient Instructions Patient InstructionsSheng Leblanc - 06/30/2010 11:02 AM CDT Use cream on eczema Expect healing of freeze area documented in this encounter Progress Notes Sheng Leblanc - 06/30/2010 11:07 AM CDT Lulu Mata 20-year-old presents with new bothersome skin tag in the right upper arm near the axilla; it is caught on clothing and is irritated and painful; cryocautery is offered and accepted; healing course described and no further problems expected from this lesion; Second issue is recurrent eczematous dermatitis previously successfully treated with triamcinolone cream; patient needs refill BP 110/60 Pulse 66 Temp(Src) 98.6 ??F (37 ??C) (Oral) Wt 136 lb (61.689 kg) SpO2 98% Assessment: #1 recurrent dermatitis #2 new painful skin tag Plan: Cryocautery done; medication refilled . Patient instructed Followup as needed otherwise Sheng Leblanc MD 06/30/2010 11:07 AM documented in this encounter Plan of Treatment Upcoming Encounters Date Type Specialty Care Team Description 06/30/2022 Telemedicine Diabetes Program Yahaira Arrieta RD N, LD, [facility] [address] [facility] N [id number] (Wo rk) 07/14/2022 Telemedicine Diabetes Program Yahaira Arrieta RD N, LD, [facility] [address] [facility] N [id number] (Wo rk) documented as of this encounter Visit Diagnoses Diagnosis Dermatitis - Primary Contact dermatitis and other eczema, due to unspecified cause Acrochordon Unspecified hypertrophic and atrophic co ndition of skin documented in this encounter Care Teams Dental Practice Manager Relationship Specialty Start Date End Date Joel Anguiano MD PCP - General 01/17/10 11/13/10 [address] [place] [address] documented as of this encounter
--- OUTSIDE RECORDS SUMMARY | 2022-06-22 13:59 | XMS_ITS | Encounter Summary ---
:1990 Author Organization [facility] Address [address] [place] [address] Care Team Providers Name Role Phone Unassigned, Provider Primary Care Provider Unavailable Reason for Visit Reason Comments EXAM,ROUTINE With glasses, no problems, l azy right eye Encounter Details Date Type Department Care Team Description 09/06/2009 Office Visit [facility] ConsoerYunior, Examination of Eyes and Visi on (Primary Dx); [address] OD Refractive Amblyopia; [place], [place] [address] Monocular Exotropia; [phone] Myopia; Unspecified Ast igmatism Social History Tobacco Use Types Packs/Day Years Used Date Smoking Tobacco: Never Assessed Sex Assigned at Date Recorded Not on file documented as of this encounter Patient Instructions Patient InstructionsConsoerYunior - 09/06/2009 12:08 PM CST Thank you for choosing [facility] for your eye care needs. Many tests were done to check your eye health today including: pupil reaction, eye muscle function, peripheral (side) vision, visual acuity, and eye pressure. The health of your eyes was also checked, both on the outside as well as the inside of each eye. Your eyeglass prescription or contact prescription may have also been updated. Early detection of eye health problems is important to keep your eyes healthy over your lifetime. Atyour eye exam we are looking for signs of glaucoma, diabetes, high blood pressure, cataract, dry eye, eye allergies, and many other conditions. Frequently Asked Questions: Why do you use eye drops? We use a clear drop to dilate, or open the pupil wider. This allows us to have a clearer, wider view inside the eye to look for signs of eye disease. We use a different eye drop to check the pressure inside the eye; this is usually the yellow eye drop. How long will my eyes be blurry today? Your vision will be blurry up close for about an hour, and your eyes will stay dilated for about 4 hours. You will need to wear sunglasses when you are outside today. If you do not have any sunglasses with you, there are some disposable ones available. Please usecaution in getting around for the few hours that your eyes are dilated. How can I contact the clinic in the future? Appointment Center: [phone] Eye Dept: [phone] Online Services: [email or web address] For after hours care, call the CareLine at [phone] or . We look forward to taking care of your eye care needs in the years to come. Refractive Errors Refractive errors occur when light does not focus properly on the retina because of the shape of theeye. The resulting image is blurred. Common refractive errors are myopia (nearsightedness), hyperopia (farsightedness), astigmatism (distorted vision), and presbyopia (aging eyes). Myopia A myopic eye is longer than a normal eye or has a cornea that is too steep, causing light rays to focus in front of the retina instead of on it. With myopia, close objects appear clear, but distant ones appear blurred. Hyperopia A hyperopic eye is shorter than normal or has a cornea that is too flat. The light rays focus beyondthe retina instead of on it. Distant objects appear clear, but close ones appear blurred. Astigmatism The cornea of an astigmatic eye is curved unevenly. Images focus in front of and beyond the retina, causing both close and distant objects to appear blurry. Presbyopia Presbyopia refers to the hardening of the lens that occurs with age. After the age of 40, the lens becomes more rigid and cannot change shape as easily to accommodate near objects. This makes reading and other tasks performed at close range difficult. Presbyopia can occur in combination with any of the other three refractive errors. Refractive errors are usually corrected with eyeglasses or contact lenses. Sometimes surgery is needed or desirable. ONAL EDUCATION COORDINATOR documented in this encounter Progress Notes Yunior Galicia - 09/06/2009 12:08 PM CST HPI Chief Complaint Patient presents with ??? EXAM,ROUTINE With glasses, no problems, lazy right eye History Reviewed Assessment Myopia Astigmatism Amblyopia Exotropia Plan Spectacle Prescription given Return to clinic in 1 year(s) for REE. Arvin Galicia, OD ONAL EDUCATION COORDINATOR documented in this encounter Plan of Treatment Upcoming Encounters Date Type Specialty Care Team Description 06/30/2022 Telemedicine Diabetes Program Yahaira Arrieta, NATANAEL N, LD, [facility] [address] [facility] [facility] [address] [facility] N [id number] (Wo rk) 07/14/2022 Telemedicine Diabetes Program Yahaira Arrieta, NATANAEL N, LD, [facility] [address] [facility] [address] [facility] N [id number] (Wo rk) documented as of this encounter Visit Diagnoses Diagnosis Examination of eyes and vision - Primary Refractive amblyopia Monocular exotropia Myopia Astigmatism, unspecified documented in this encounter Care Teams Boom Stick Man Relationship Specialty Start Date End Date Unassigned, Provider PCP - General 08/17/09 01/16/[address] [place] [id number] documented as of this encounter
--- OUTSIDE RECORDS SUMMARY | 2022-06-22 13:59 | XMS_ITS | Encounter Summary ---
:1990 Author Organization [facility] Address [address], [place] [address] Care Team Providers Name Role Phone Heydi Santana PA-C Primary Care Provider [phone] Reason for Visit Reason Comments Chest Pain Encounter Details Date Type Department Care Team Description 10/25/2011 Hospital Encounter [facility] sinusitis, unspecified; Care MD Kim Unspecified asthma, with exacerbation [address] [facility] [address] [place], [place] [phone] Social History Tobacco Use Types Packs/Day Years Used Date Smoking Tobacco: Never Alcohol Use Standard Drinks/Week Comments No 0 (1 standard drink = 0.6 oz pure alcoho l) Sex Assigned at Date Recorded Not on file documented as of this encounter Last Filed Vital Signs Vital Sign Reading Time Taken Comments Blood Pressure 123/78 10/25/2011 1:10 PM BUILDING MOVER Pulse 84 10/25/2011 1:10 PM BUILDING MOVER Temperature 37.2 ??C (99 ??F) 10/25/2011 1:10 PM BUILDING MOVER Respiratory Rate 16 10/25/2011 1:10 PM BUILDING MOVER Oxygen Saturation 99% 10/25/2011 1:10 PM BUILDING MOVER Inhaled Oxygen Concentration - - Weight - - Height - - Body Mass Index - - documented in this encounter Medications at Time of Discharge Medication Sig Dispensed Refills Start Date End Date ALBUterol sulfate hfa Inhale 2-4 Puffs by 8.5 g 1 05/25 (PROAIR HFA) 108 (90 mouth every 4 hours BASE) MCG/ACT as needed for inhalerIndications: Wheezing. Reactive airway disease (HRC) ALBUterol sulfate HFA Inhale 2 puffs every 8 g 2 01/2012 108 (90 BASE) MCG/ACT 4 hours as needed for inhaler Shortness of Breath. triamcinolone acetonide Apply 1 Application 80 0 02/2010 (AKA KENALOG) 0.025 % topically 3 times cream daily. LW Comment:appt needed for refill amoxicillin (aka Take 2 capsules by 40 capsule 0 10/25/2011 11/04/2011 AMOXIL) capsule mouth 2 times daily for 10 days. ALBUterol sulfate HFA Inhale 2 puffs every 8 g 2 01/201204/28/2016 inhalation 4 hours as needed for Shortness of Breath. documented as of this encounter ED Notes Kim Chamberlain - 10/25/2011 1:26 PM CST Chief Complaint Patient presents with ??? Chest Pain with breathing, both ear pain, sore throat SUBJECTIVE: Patient is a 21 y.o.female who is been ill for 3 weeks with upper respiratory symptoms including congestion, head pressure and pain into the ears. She is hearing crackling noises in her ears. She has had intermittent discomfort in the center for chest with breathing. She does have a history of asthma. She is out of her albuterol inhaler and could not get her primary to refill it since sheswitched clinics. She had a fever last week. She's had a slight cough. Allergies: Review of patient's allergies indicates no known allergies. OBJECTIVE: BP 123/78 Pulse 84 Temp(Src) 37.2 ??C (98.9 ??F) (Oral) Resp 16 SpO2 99% General: Appears well and in NAD. Nose: Very congested with purulent discharge. Sinuses are tender to percussion. Ears: TM's clear bilaterally. Pharynx: Moist mucous membranes without erythema or exudate. There is purulent drainage posteriorly. Neck: Supple, without masses, lymphadenopathy or tenderness. Respiratory: Lungs are clear bilaterally. There is prolonged expiratory phase and faint wheezing heard with coughing. ASSESSMENT: 1. Sinusitis. 2. Asthma exacerbation. PLAN: Medications albuterol (PROVENTIL HFA, VENTOLIN HFA) 90 mcg/Actuation inhaler (not administered) amoxicillin (AMOXIL) 500 mg capsule (not administered) Take medication as prescribed. Sinus self-cares reviewed. Encouraged fluids, nasal irrigation and rest. Monitor symptoms. RTC PRN if not gradually improving. The patient was discharged ambulatory and in stable condition. documented in this encounter Miscellaneous Notes Medication History - Kyle Pyle MD - 10/25/2011 1:26 PM CST INPATIENT MEDS Encounter Date: 10/25/11 albuterol (PROVENTIL HFA, VENTOLIN HFA) 90 mcg/Actuation inhaler Start Date:10/25/11, End Date:-, Frequency:EVERY 4 HOURS PRN *No Administrations Recorded amoxicillin (AMOXIL) 500 mg capsule Start Date:10/25/11, End Date:11/04/11, Frequency:2 TIMES DAILY *No Administrations Recorded DING MOVER documented in this encounter Plan of Treatment Upcoming Encounters Date Type Specialty Care Team Description 06/30/2022 Telemedicine Diabetes Program Yahaira Arrieta RD N, LD, [facility] [address] [facility] N [id number] (Wo rk) 07/14/2022 Telemedicine Diabetes Program Yahaira Arrieta RD N, LD, [facility] [address] [facility] N [id number] (Wo rk) documented as of this encounter Visit Diagnoses Diagnosis Acute sinusitis, unspecified Unspecified asthma, with exacerbation (H RC) Unspecified asthma, with exacerbation documented in this encounter Care Teams Operating Room Surgical Technologist Relationship Specialty Start Date End Date Heydi Santana PA-C PCP - General 11/14/10 [address] [place], [place] [phone] documented as of this encounter
--- OUTSIDE RECORDS SUMMARY | 2022-06-22 13:59 | XMS_ITS | Encounter Summary ---
:1990 Author Organization [facility] Address [address] [place] [address] Care Team Providers Name Role Phone Joel Anguiano MD Primary Care Provider Reason for Visit Reason Comments CONTROL COUNSELING Encounter Details Date Type Department Care Team Description 09/27/2010 Office Visit [facility] Candy Perez control Practice [facility] (Primary Dx) [address] [facility] [address] [place], [place] [address] [address] [phone] [place] [address] Social History Tobacco Use Types Packs/Day Years Used Date Smoking Tobacco: Never Alcohol Use Standard Drinks/Week Comments No 0 (1 standard drink = 0.6 oz pure alcoho l) Sex Assigned at Date Recorded Not on file documented as of this encounter Last Filed Vital Signs Vital Sign Reading Time Taken Comments Blood Pressure 110/82 09/27/2010 9:16 AM INSURANCE RISK MANAGER Pulse 76 09/27/2010 9:16 AM INSURANCE RISK MANAGER Temperature - - Respiratory Rate - - Oxygen Saturation - - Inhaled Oxygen Concentration - - Weight 62.1 kg (137 lb) 09/27/2010 9:16 AM INSURANCE RISK MANAGER Height - - Body Mass Index - - documented in this encounter Patient Instructions Patient InstructionsCandy Perez - 09/27/2010 9:35 AM CST Go to the lab today to do test. I will send the rx for control pills to your [facility]. Start Day 1 of the pills on the first Sunday after your next period. Make sure to continue to use condoms all the time. Schedule appt with me in the next 2 months to have a pelvic exam/pap smear/STD testing. Call with any questions or if your symptoms change/worsen, or do not improve as expected. RANCE RISK MANAGER documented in this encounter Progress Notes Candy Perez - 09/27/2010 9:28 AM CST Lulu Mata is a 20 yr female who is here today with cc wanting to start control pills. She states she has used control pills in the past, around age 15-16, but not since that time. Sheis currently sexually active. The patient states that they use condoms always, but she wants additional prevention. The patient states that her cycle is also sometimes slightly irregular, so she would like to regulate her cycle as well. Patient reports she has never had a pelvic exam or, Papsmear screening, or sexually transmitted disease testing. She is a bit apprehensive about doing this. She is a non smoker. She has no contraindications to taking control pills. ROS is positive as stated above. The rest of ROS is negative on a complete and comprehensive basis. I have reviewed the patient's laboratory database, medical, surgical, family, social and other histories in detail and updated the computerized patient record. Please see database for specifics. HM needs also reviewed. Current outpatient prescriptions Medication Sig ??? ALBUterol sulfate hfa (PROAIR HFA) 108 (90 BASE) MCG/ACT inhaler Inhale 2-4 Puffs by mouth every4 hours as needed for Wheezing. ??? Norgestimate-Ethinyl Estradiol (ORTHO TRI-CYCLEN, 28,) 0.18/0.215/0.25 MG-35 MCG tablet Take 1 Tab by mouth daily. ??? triamcinolone acetonide (AKA KENALOG) 0.1 % cream Apply topically. Twice daily ??? Triamcinolone Acetonide, [id number], (TRIAMCINOLONE ACETONIDE EX) cream use as needed No Known Allergies No past medical history on file. PE: WDWN F in NAD, A&Ox3 BP 110/82 Pulse 76 Wt 137 lb (62.143 kg) LMP 09/17/2010 CV: S1 S2 RRR no mgr PULM: clear to auscultation : no pelvic/pap today, pt to RTC within next 2 months EXT: no c/c/e DERM: no worrisome rashes A: control initiation P: Go to the lab today to do test. I will send the rx for control pills to your [facility]. Start Day 1 of the pills on the first Sunday after your next period. Make sure to continue to use condoms all the time. Patient was quite nervous about pelvic/pap so we will have her schedule appt with me in the next 2 months to have a pelvic exam/pap smear/STD testing. Gave her a 3 month rx with no refills today. Advised her we can give 1 year rx at her next appt. Call with any questions or if your symptoms change/worsen, or do not improve as expected. The issues outlined above were discussed, and all related concerns and questions addressed. Differential diagnosis, medical workup, management options, and treatment guidelines were reviewed. Patient education was provided, including review of medication side effects, where applicable. Please refer tomed orders and/or patient instructions for further information. The patient was instructed to call or seek medical attention in the event of progressive symptoms or related concerns. A personalized, detailed, handwritten after visit summary was given to the patient today. We reviewed it together. Candy Perez PA-C 10:39 AM 09/27/2010 RANCE RISK MANAGER documented in this encounter Plan of Treatment Upcoming Encounters Date Type Specialty Care Team Description 06/30/2022 Telemedicine Diabetes Program Yahaira Arrieta RD N, LD, [facility] [address] [place] N [id number] (Elena bains) 07/14/2022 Telemedicine Diabetes Program Yahaira Arrieta RD N, PAVAN, [facility] [address] [place] [id number] (Elena bains) documented as of this encounter Procedures Procedure Name Priority Date/Time Associated Diagnosis Comme nts TEST Waiting 09/27/2010 9:39 AM control Result s for this (URINE) INSURANCE RISK MANAGER procedure are i n the results section. documented in this encounter Results TEST (URINE) (09/27/2010 9:39 AM INSURANCE RISK MANAGER) Component Value Ref Test Analysis Performed At [facility] Range Method Time Signature HCG, Urine Negative [facility] Negative = <25 mIU/ml If is suspected, suggest repeat in 48-72 hours or confirm results with a quantitative hCG test. Specimen Anatomical Collection Method Collection Time Receive d Time (Source) Location / / Volume Laterality Urine specimen 09/27/2010 9:39 AM 010 9:49 (specimen) INSURANCE RISK MANAGER AM INSURANCE RISK MANAGER Candy Perez PA-C LAB_1 Performing Organization Address City/State/ZIP Code Phon e Number [facility] [phone] [facility] [address] [place] [phone] documented in this encounter Visit Diagnoses Diagnosis control - Primary Unspecified contraceptive management documented in this encounter Care Teams Community Engagement Leader Relationship Specialty Start Date End Date Joel Anguiano MD PCP - General 01/17/10 11/13/10 [address] [place], [place] [address] documented as of this encounter
--- OUTSIDE RECORDS SUMMARY | 2022-06-22 13:59 | XMS_ITS | Encounter Summary ---
:[address] Address [address] [place] [address] Care Team Providers Name Role Phone Joel Anguiano MD Primary Care Provider Reason for Visit Reason Comments Ear Pain SORE THROAT, HEADACHE Encounter Details Date Type Department Care Team Description 03/11/2010 Office Visit [facility] Benjamin Zuniga i, MD Acute Sinusitis, Unspecified (Primary Dx ); Medicine [address] Reactive Airway Disease [address] [place], [place] [phone] Social History Tobacco Use Types Packs/Day Years Used Date Smoking Tobacco: Never Alcohol Use Standard Drinks/Week Comments No 0 (1 standard drink = 0.6 oz pure alcoho l) Sex Assigned at Date Recorded Not on file documented as of this encounter Last Filed Vital Signs Vital Sign Reading Time Taken Comments Blood Pressure 120/80 03/11/2010 7:58 AM CDT Pulse 78 03/11/2010 7:58 AM CDT Temperature 37 ??C (98.6 ??F) 03/11/2010 7:58 AM CDT Respiratory Rate - - Oxygen Saturation - - Inhaled Oxygen Concentration - - Weight 62.6 kg (138 lb) 03/11/2010 7:58 AM CDT Height - - Body Mass Index - - documented in this encounter Patient Instructions Patient InstructionsRox Zuniga - 03/11/2010 8:12 AM CDT Please schedule a preventive care exam and you should bring your immunization records. SINUSITIS What is sinusitis? Sinusitis is an infection or inflammation of the lining of the sinuses. The sinuses are air pockets in the front of the head, located primarily above and below the eyes. These air pockets are lined by mucus producing tissue that, along with the nose, make about a quart of mucus per day. The normally thin mucus must continually drain out through tiny openings between the sinuses and the nose. With colds, allergies, or chronic irritation from smoke or dust in the air the mucus may thicken. The tissuesmay then become swollen, blocking or partially blocking the sinus drainage passages into the nose. When this happens the mucus can back up, exerting pressure and causing pain in the face, upper teeth or forehead. If this blockage is not opened up within about one week, the mucus will become stagnant allowing the normal bacteria to grow and become a bacterial infection. Swollen sinuses cause pain and problems when the drainage is blocked. So the most important goal in caring for your sinuses is to maintain or reestablish normal drainage. Bacterial sinus infections arealmost always preventable if mucus drainage can be maintained (see sinus drainage procedures for details). Antibiotics might be added to the treatment if an adequate trial (usually five to seven days) of multiple drainage procedures is not successful. For chronic sinus problems antibiotics are less helpful than drainage procedures. Call your clinic if you have: ?? Sinus pain persisting after five to seven days of self treatment with drainage procedures Sinus pain worsening after three days of self treatment, especially with temperature greater than 102?? F and past history of sinus problems Pain in the eyeball or vision problems Swelling or redness around the eyes or face Sinus drainage procedures: Restoring normal drainage of mucus from the sinus cavities will relieve the pain from congestion, and greatly speed the healing of bacterial sinus infections. Use as many of these strategies and techniques as you need. The more of them you do, the greater the chance your symptoms will resolve quickly. ?? Drink more liquids (six to ten glasses a day) to thin mucus, and get more rest to help your body heal. Try decreasing or temporarily stopping the use of dairy products which may thicken mucus. Maintain proper humidity in your home. Use heat over the sinuses (hot shower, hot wash cloths, hot water bottle or gel pack) for five to ten minutes, three or more times per day to promote drainage of mucus. Following heat, massage over the sinuses to stimulate drainage. Begin at the top and work slowly downward for two to three minutes. Search for pressure points that relieve pain. Use a decongestant, like pseudoephedrine (Sudafed), 30 to 60 mg three times a day. Decongestant nasal sprays (such as Afrin or Neosynephrine) may be used up to two times per day for up to three days instead of pseudoephedrine. Do not use for more than three days since this will causeincreased swelling in the nasal tissues. Use ibuprofen, 200 to 800 mg, three times a day with food as needed for pain or acetaminophen 325 zw4600 mg every four hours. To thin and wash out thick mucus and soothe inflamed nasal tissues use salt water (saline) nasal spray (such as [place]). Two sprays each side, wait 20 to 30 seconds then blow nose to remove mucus, four to six times per day or use saline nasal irrigation to more effectively remove mucus. Smoking chronically irritates nasal tissues and increases the risk of colds and recurring sinus problems. Decrease or quit smoking. Do not use antihistamines unless you clearly have an allergy problem, since they tend to thicken mucus secretions. ?? For comfort, sleep with the head of the bed elevated. Saline nasal rinse: Saline nasal rinse is a simple method for cleansing the nasal passages and the drainage openings from the sinuses into the nose. In the same way that gargling warm salt water can ease the discomfort ofa sore throat, nasal rinsing can soothe the mucous membranes in the nose. It can also be quite helpful in washing out dust, dirt and pollen which can cause allergic problems. In addition, clearing out thick mucus can relieve nasal plugging and postnasal drainage. This is a very helpful part of a totalprogram in the treatment and prevention of chronic sinusitis and postnasal drainage. How to make a salt water (saline) solution: * Mix about 1/4 teaspoon of non-iodized table salt with 8 ounces of warm water (95 to 105 degrees) until salt is entirely dissolved. Procedures: Choose the one that works best for you. ?? Pour warm salt water into one cupped hand. With the other hand, plug off one nostril. Sniff salt water into the open nostril. Either sniff all of the way through and spit out, or simply let it drainout of the nose into the sink. Using a bulb syringe (purchase at drug stores or discount centers) filled with salt water. Carefullyinsert the tip into the nose along the bottom of the nasal passage. Tilt your head horizontally overthe sink with the tip in the upper nostril, and slowly squeeze the bulb. Adjust head position so that saline will flow out of the lower nostril. Rinse both sides, then gently blow your nose after rinsing. Use a Neti Pot (small porcelain pitcher designed for nasal irrigation - purchase from [employer] or [employer]) in a similar manner described above. This is the easiest and most comfortable method. Use saline nasal irrigation once a day to maintain health of the nasal passages, and two or more times a day for active treatment of symptoms. With a little practice, this technique becomes almost as quick and easy as brushing your teeth. ?? 2001 [employer]. documented in this encounter Progress Notes Rox Zuniga - 03/11/2010 8:12 AM CDT Lulu Mata is a 19 yr old female with primary concern: sore throat congestion post nasal drip ear pressure productive cough headache Duration: 2-week(s) Significant positive medical hx: recurrent sinusitis and probable asthma, suspected by one of urgentcare physicians at a previous visit. She has not used an inhaler in the past. Exposures: none History Tobacco Use Never Associated symptoms: General symptoms:none HEENT symptoms: sore throat, nasal congestion, post nasal drainage, sinus pressure over 7 days with poor response to decongestant and headache and bilateral ear pressure Chest symptoms: productive cough Abd/GI symptoms: none Red flag symptoms: none Objective Appears healthy and alert, comfortable BP 120/80 Pulse 78 Temp(Src) 98.6 ??F (37 ??C) (Oral) Wt 138 lb (62.596 kg) HEENT: EAC's/TM's normal, conjunctiva normal, sinus tenderness present Bilateral , oropharynx normal, no significant cervical adenopathy and neck supple Chest: Heart exam - S1, S2 normal, chest is clear without rales or wheezing, no pedal edema, no JVD,no hepatosplenomegaly and lungs are clear but diminished breath sounds at both bases Skin: no rash, no purpura/petechia Lab/xray data: not indicated Assessment sinusitis and probable reactive airway disease Plan Symptomatic treatment and See prescribed medication(s). Amoxicillin and Proair inhaler Call or return to clinic if these symptoms worsen or fail to improve as anticipated. BARTOLO Richey/ documented in this encounter Plan of Treatment Upcoming Encounters Date Type Specialty Care Team Description 06/30/2022 Telemedicine Diabetes Program Yahaira Arrieta, NATANAEL N, LD, CDCES [address] [facility] [address] [id number] (Wo rk) 07/14/2022 Telemedicine Diabetes Program Yahaira Arrieta RD N, LD, CDCES [address] [facility] [address] [id number] (Wo rk) documented as of this encounter Visit Diagnoses Diagnosis Acute sinusitis, unspecified - Primary Reactive airway disease (HRC) Unspecified asthma documented in this encounter Care Teams Rigging Supervisor Relationship Specialty Start Date End Date Joel Anguiano MD PCP - General 01/17/10 11/13/10 [address] [place] [address] documented as of this encounter
--- NOTE | 2022-06-22 14:00 | CRLHL7_ITS ---
For Patients: As a result of the Century Cures Act, medical imaging exams and procedure reports are released immediately into your electronic medical record. You may view this report before your referring provider. If you have questions, please contact your health care provider. INDICATION: Hypertension. TECHNIQUE: Ultrasound OB pelvis transabdominal. Real-time norton-scale imaging of the fetus was performed without stress testing. COMPARISON: OB ultrasound 05/17/2022. FINDINGS: Sonographic imaging demonstrates a single living intrauterine gestation. Fetus demonstrates a regular cardiac rate of 157 beats per minute. Fetus has a dayana breech orientation. Biometric measurements: Biparietal diameter: 8.3 cm, 33 week 2 day, 67th percentile. Head circumference: 31.6 cm, 35 week 4 day, 88th percentile. Abdominal circumference: 29.7 cm, 33 week 5 day, 83rd percentile. Femur length: 6.4 cm, 33 week 1 day, 57th percentile. FL/AC ratio 22 percent. HC/AC ratio 1.1 by Estimated weight: 2245 grams, 78th percentile. Estimated ultrasound age by today`s measurements is 34 weeks 0 day. Estimated date of delivery is 08/03/2022. Amniotic fluid volume appears normal. Single deepest pocket measures 3.4 cm. breathing movements, motion, and tone were all observed. IMPRESSION: Single viable intrauterine with a biophysical profile 05/29. Adequate interval growth has been demonstrated. Estimated 78th percentile for weight. Measurements are 1 week and 4 days greater than clinical dates. Dictated by Duncan Osman MD @ 06/23/2022 8:37:58 AM (Electronically Signed)
--- OUTSIDE RECORDS SUMMARY | 2022-06-22 14:00 | XMS_ITS | Encounter Summary ---
:1990 Author Organization [facility] Address [address] [place] [address] Care Team Providers Name Role Phone Ben Arce M.D. Primary Care Provider Reason for Visit Reason Comments Routine Visit 20weeks Outpatient (Routine) - Authorized Specialty Diagnoses / Procedures Referred By Contact Refer red To Contact Obstetrics and Cheikh Gautam [facility] william Gynecology Minoo Referral ID Status Reason Start Date Expiration Date Visits V isits Requested Authorized [id number] Authorized 12/20/2021 12/20/2022 15 15 Encounter Details Date Type Department Care Team Description 03/27/2022 Routine Department of Cheikh Gautam k (HCC) (Primary Dx); Obstetrics and Minoo Garcia Encounter For Supervision Of Normal Unspecified Trimester (HCC) Gynecology in [place], [place] [address] [place] [address] Social History Tobacco Use Types Packs/Day Years [...] do you attend alevism or Never 2021 spiritism services? Do you [...] at Date Recorded Female 12/02/2021 5:19 PM CLINIC COORDINATOR documented as of this encounter Last [...] -Gonorhrea/chlamydia urine today -Patient is transferring to [place] because it is closer -Problem list updated [...] Vaccinations: COVID complete but needs booster/Flu declines Historical Society Director: Pap NIL w/ neg HPV 11/2021 Aneuploidy [...] she told me she is transferring to [place] because it is closer. documented in this encounter Plan of Treatment Not on filedocumented as of this encounter Procedures Procedure Name Priority Date/Time Associated Diagnosis Comme nts CHLAMYDIA/GONORRHOE Routine 03/27/2022 10:42 AM High Risk Preg roberta Results for this AE AMPLIFIED RNA CDT ([facility]) procedure a re in the results section. [...] M.D. LAB URINE ORDERABLES Performing Organization Address City/[facility]/ZIP Code Phon e Number [place] [address] [address] [place], [place] [address] [facility] [place] [id number] ALT (Alanine Aminotransferase) (03/31/2022 5:31 PM CDT) Patholo gist Method Time Signature Alanine 10 7 - 45 03/31/2022 [facility] Aminotransferase U/L 5:59 PM CDT (ALT), P Specimen Anatomical Collection Method Collection Time Receive d Time (Source) Location / / Volume Laterality Blood (Blood, 03/31/2022 5:31 PM 03/31/20 5:34 Venous) CDT PM CDT Cheikh Gautam M.D. LAB BLOOD ADD-ON Performing Organization Address City/[facility] Phon e Number [address] [address] [place] [facility] [place] [id number] [address] AST (Aspartate Aminotransferase) (03/31/2022 5:31 PM CDT) [facility] gist Method Time Signature Aspartate 13 8 - 43 03/31/2022 NPRG Aminotransferase U/L 5:59 PM CDT (AST), P Specimen Anatomical Collection Method Collection Time Receive d Time (Source) Location / / Volume Laterality Blood (Blood, 03/31/2022 5:31 PM 03/31/20 22 5:34 Venous) CDT PM CDT Cheikh Gautam M.D. LAB BLOOD ADD-ON Performing Organization Address City/[facility]/ZIP Code Phon e Number [place] [address] [address] [place], [place] [address] [facility] [place] [id number] (ABNORMAL) Creatinine with Estimated GFR (03/31/2022 5:31 PM CDT) Analysis Performed At [facility] logist Time Signature Creatinine 0.58 (L) 0.59 - 03/31/2022 NPRG 1.04 mg/dL 5:59 PM CDT eGFR-Black/Afri >90 >=60 03/31/2022 NPRG can Yemeni mL/min/BSA 5:59 PM CDT Comment: ----ADDITIONAL INFORMATION---- [...] M.D. LAB BLOOD ADD-ON Performing Organization Address City/[facility] Phon e Number [facility]- [address] [place] [address] [place] [address] [place] [address] Chlamydia / Gonorrhoeae Amplified RNA (03/27/2022 10:42 AM CDT) [facility] gist Method Time Signature Source Urine, [...] - GENERAL O RDERABLES Performing Organization Address City/[facility]/ZIP Code Phon e Number [facility]- [address] [place] [address] [facility] [place] [place] [address] System in [place] [address] [facility] documented in this encounter Visit Diagnoses Diagnosis High Risk (HCC) - Primary Encounter For Supervision Of Normal Preg roberta Unspecified Trimester (HCC) documented in this encounter Additional Health Concerns Assessment Noted Time PHQ-9 Depression Total Score: 4 12/20/2021 10:52 AM CS T documented as of this encounter Care Teams Audience Development Manager Relationship Specialty Start Date End Date Ben Arce M.D. PCP - General Family Medicine 01/13/[address] [place] [address] documented as of this encounter
--- OUTSIDE RECORDS SUMMARY | 2022-06-22 14:00 | XMS_ITS | Encounter Summary ---
:1990 Author Organization [facility] Address [address] [place] [address] Care Team Providers Name Role Phone Ben Arce M.D. Primary Care Provider Reason for Visit Reason Comments Routine Visit Patient seen in L&D yesterda y for decreased movement and spotting Outpatient (Routine) - Authorized Specialty Diagnoses / Procedures Referred By Contact Refer red To Contact Obstetrics and Cheikh Gautam [facility] Gynecology M.DMaribell Referral ID Status Reason Start Date Expiration Date Visits V isits Requested Authorized [id number] Authorized 12/20/2021 12/20/2022 15 15 Encounter Details Date Type Department Care Team Description 04/18/2022 Routine Department of Rylie Mcdowell, 23 Weeks Gestation Obstetrics and M.D. ([facility]) Gynecology in [address] (Primary Dx) [place] [address] [address] [facility] [address] [place], [place] [phone] [phone] (Work) [phone] Social History Tobacco Use Types Packs/Day Years [...] you attend latter day or Never 2021 latter day services? Do [...] at Date Recorded Female 12/02/2021 5:19 PM RUBBER DOWN documented as of this encounter Last Filed [...] documented as of this encounter Care Teams Knitter Operator Relationship Specialty Start Date End Date Ben Arce M.D. PCP - General Family Medicine 01/13/[address] [facility] [phone] documented as of this encounter
--- OUTSIDE RECORDS SUMMARY | 2022-06-22 14:00 | XMS_ITS | Encounter Summary ---
:1990 Author Organization [facility] Address [address] [place] [address] Care Team Providers Name Role Phone Heydi Santana PA-C Primary Care Provider [phone] Encounter Details Date Type Department Care Team Description 09/22/2003 PN Conversion Only [place] [facility] Ayaan Osorio [facility] [address] [facility] [address] [facility]. [facility] [address] [place] [address] [phone] Social History Tobacco Use Types Packs/Day Years Used Date Smoking Tobacco: Never Assessed Sex Assigned at Date Recorded Not on file documented as of this encounter Progress Notes Maryana Osorio - 09/22/2003 12:01 AM CST Progress Notes signed by Maryana Osorio MD at 09/23/03 0756 Author: Maryana Osorio MD Service: (none) Author Type: Physician Filed: 02/09/11 1721 Note Time: 09/22/03 0001 Status: Signed Marker Machine Attendant: Maryana Osorio MD (Physician) NAME: DILLAN MATA MR: [id number] ACCT: [id number] VISIT: [id number] DICTATING CLINICIAN: MARYANA OSORIO MD JOB: [id number] CLINIC PROGRESS NOTE DATE OF VISIT: 09/22/2003 SUBJECTIVE: This is a patient who comes in with 2 concerns. First of all she has had a rash that has been on her left wrist and a little bit on her neck and her back. This has been there the last couple of weeks. And her second concern is that she had a very heavy plate that was in a microwave the other day, the glass part that fits into the microwave, that fell and hit her directly over her right foot about 2 weeks ago and she has been having some discomfort in it ever since then. OBJECTIVE: VS: Wt: 125. The rash that she has on her left wrist looks much like a contact dermatitis from a watch that she had been wearing. The right foot was examined and the discomfort she has is in the distal part of the foot on the dorsal surface. Today we went ahead and x-rayed her foot and I do not see any obvious abnormalities. ASSESSMENT: 1. Contact dermatitis involving her wrist. 2. Contusion of the foot. PLAN: Will treat the rash with Westcort cream 0.2% b.i.d. and she is advised to not wear the watch at this point. I will have her use some warm soaks to the foot and limit her activities as needed and follow up p.r.n. TT: CT: [id number] C: 09/23/03 05:53 DOCUMENT: [id number] Patito Craig - 02/19/2002 12:01 AM CDT Progress Notes signed by Patito Jorge APRN, PRESSURE WASHER at 03/11/02 1009 Author: HÉCTOR Martin Service: (none) Author Type: Nurse Practitioner Filed: 02/09/11 0554 Note Time: 02/19/02 0001 Status: Signed Marker Machine Attendant: HÉCTOR Martin (Nurse Practitioner) IMPRESSION: URI. SUBJECTIVE: Chief complaint: Sore throat. The patient has had a two-day history of sore throat and intermittent ear pain. No fever. She is on no meds. ADR/ALLERGIES: NO KNOWN ALLERGIES. OBJECTIVE: VS/GEN: T: 98.7 Ht: 5 feet 10-5/8 inches. Wt: 111.9 Young female in no acute distress. HEENT: TMs are clear. Pharynx mildly erythematous, no exudate. Mild posterior cervical adenopathy. No pain over the maxillary or frontal sinuses. LUNGS: Breath sounds clear. Rapid strep test negative. ASSESSMENT: Viral URI. PLAN: Discussed symptomatic treatment. Follow up p.r.n. TT: CT: [id number]:[id number] C: DOCUMENT: [id number] Maryana Osorio - 12/23/1998 12:01 AM CST Progress Notes signed by Maryana Osorio MD at 01/04/99 1608 Author: Maryana Osorio MD Service: (none) Author Type: Physician Filed: 02/08/11 0924 Note Time: 12/23/98 0001 Status: Signed Marker Machine Attendant: Maryana Osorio MD (Physician) IMPRESSION: Upper respiratory infection. SUBJECTIVE: Dillan Mata is in today with right ear ache. She has been having some cough and congestion. ADVERSE DRUG REACTIONS: SEPTRA. OBJECTIVE: Temperature: 98.9. Wt: 80 pounds. Ears: She has an effusion present on that right side. The left is normal. She has a lot of rhinorrhea. Lungs are clear. ASSESSMENT: Upper respiratory infection and otitis media with effusion on the right. PLAN: She was put on Trimox 250 chewables t.i.d. stg RETE BUCKET HOOKER Maryana Osorio - 12/10/1997 12:01 AM CST Progress Notes signed by Maryana Osorio MD at 12/17/972053 Author: Maryana Osorio MD Service: (none) Author Type: Physician Filed: 02/08/116 Note Time: 12/10/97 0001 Status: Signed Marker Machine Attendant: Maryana Osorio MD (Physician) IMPRESSION: Serous otitis that is unresolved on her right side. SUBJECTIVE: This is a followup on a patient who had an ear infection that was treated over the phone a couple of weeks ago with some Amoxicillin chewables 250 t.i.d. Currently she is having some pain yet in that right ear and she says that her hearing sound kind of muffled on that side. OBJECTIVE: Right drum is essentially normal. There is an obvious effusion present on that side and the left side was negative. ASSESSMENT: Serous otitis that is unresolved on her right side. PLAN: She will stay on the Trimox 250 chewables b.i.d. over the next 10 days and will followup here pemi carey RETE BUCKET HOOKER Theodore Garcia MD - 03/02/1997 12:01 AM CDT Progress Notes signed by Theodore Garcia MD at 03/18/97 5111 Author: Theodore Garcia MD Service: (none) Author Type: Physician Filed: 02/07/11 4186 Note Time: 03/02/97 0001 Status: Signed Marker Machine Attendant: Theodore Garcia MD (Physician) IMPRESSION: Right otitis media with perforation. SUBJECTIVE: This is a 6-year-old who comes in for an ear infection. She has had a draining right ear for the past day. She developed some pain last night. OBJECTIVE: T: 102. Wt: 59 pounds. Right TM shows moisture in the canal and retracted right TM. Left is normal. Oropharynx is negative. ASSESSMENT: Right otitis media with perforation. PLAN: Amoxicillin 250 chewables t.i.d. for ten days. Discussed side effects. Recheck in two weeks. [facility] documented in this encounter Plan of Treatment Upcoming Encounters Date Type Specialty Care Team Description 06/30/2022 Telemedicine Diabetes Program Yahaira Arrieta, NATANAEL N, LD, [facility] [address] [place] N [id number] (Wo herson) 07/14/2022 Telemedicine Diabetes Program Yahaira Arrieta RD N, LD, [facility] [address] [place] [address] (Elena bains) documented as of this encounter Procedures Procedure Name Priority Date/Time Associated Diagnosis Comme nts XR FOOT RT 3+ VIEWS Routine 09/22/2003 3:12 PM Re sults for this CONCRETE BUCKET HOOKER procedure are i n the results section. STREP GROUP A Routine 02/19/2002 4:43 PM Results for this ANTIGEN TEST CDT procedure are i n the results section. BETA STREP FOLLOWUP Routine 02/19/2002 4:43 PM Re sults for this CDT procedure are i n the results section. documented in this encounter Results XR Foot Rt 3+ Views (09/22/2003 3:12 PM CONCRETE BUCKET HOOKER) Anatomical Region Laterality Modality Lower Extremity, Foot Other Specimen (Source) Anatomical Location Collection Method / Collectio n Time Received Time / Laterality Volume Narrative 09/22/2003 3:12 PM CONCRETE BUCKET HOOKER Findings: BN1 No radiographic evidence of bone or join t abnormality. Dictating MINDI CHERRY RADIOLOGIST Procedure Note Brenda Machado - 12/28/2016 Findings: BN1 No radiographic evidence of bone or join t abnormality. Dictating MINDI CHERRY RADIOLOGIST Maryana Osorio RAD GD Strep Group A Antigen Test (02/19/2002 4:43 PM CDT) Analysis Performed At Patho logist Time Signature Strep Group A Negative Negative HP CONVERSION Antigen Test Comment: Culture to follow. Specimen (Source) Anatomical Collection Method Collection Time Re ceived Time Location / / Volume Laterality 02/19/2002 4:43 PM CDT Patito Jorge APRN, PRESSURE WASHER LAB_1 Performing Organization Address City/State/ZIP Code Phon e Number HP CONVERSION Beta Strep Followup (02/19/2002 4:43 PM CDT) P athologist Signature Strep Screen SEE TEXT HP CONVERSION Comment: Patient: DILLAN MATA BRAD Rapid Strep Follow up Culture @ ? Collected: ?164 Source: Throat ?Processed: ?1643 ? 14 Final Report ------ ?734 No beta hemolytic Strep group A isolated . @ = Rapid F/U Cult Performed at ??[address] [facility], [place], [place] ?[address] Specimen (Source) Anatomical Collection Method Collection Time Re ceived Time Location / / Volume Laterality 02/19/2002 4:43 PM CDT Patito Jorge APRN, PRESSURE WASHER LAB_1 Performing Organization Address City/State/ZIP Code Phon e Number HP CONVERSION documented in this encounter Visit Diagnoses Not on filedocumented in this encounter Care Teams Groundhand Relationship Specialty Start Date End Date Heydi Santana PA-C PCP - General 11/14/10 [address] [place], [place] [id number] documented as of this encounter
--- OUTSIDE RECORDS SUMMARY | 2022-06-22 14:00 | XMS_ITS | Encounter Summary ---
:1990 Author Organization [facility] Address [address] [place] [address] Care Team Providers Name Role Phone Ben Arce M.D. Primary Care Provider Reason for Visit Reason Comments Hand Injury Medical Information Encounter Details Date Type Department Care Team Description 02/11/2022 Nurse Triage Department of [facility] Rylie Hightower Hand Injury; Medical Medicine in [place], [place] [address] [facility] [address] [place] [address] [phone] Social History Tobacco Use Types Packs/Day Years [...] do you attend mandaeism or Never 2021 anglican services? Do you [...] at Date Recorded Female 12/02/2021 5:19 PM AERIAL HURRICANE HUNTER documented as of this encounter Miscellaneous Notes [...] or deformed) Protocols used: HAND AND WRIST [id number] documented in this encounter Plan of Treatment Not on filedocumented as of this encounter Visit Diagnoses Not on filedocumented in this encounter Additional Health Concerns Assessment Noted Time PHQ-9 Depression Total Score: 4 12/20/2021 10:52 AM CS T documented as of this encounter Care Teams Building Energy Retrofit Technician Relationship Specialty Start Date End Date Ben Arce M.D. PCP - General Family Medicine 01/13/[address] [place] [address] documented as of this encounter
--- OUTSIDE RECORDS SUMMARY | 2022-06-22 14:00 | XMS_ITS | Encounter Summary ---
:1990 Author Organization [facility] Address [address] [place] [address] Care Team Providers Name Role Phone Heydi Santana PA-C Primary Care Provider [phone] Encounter Details Date Type Department Care Team Description 03/26/2009 PN Conversion Only [facility] ON [address] [place] [address] Social History Tobacco Use Types Packs/Day Years Used Date Smoking Tobacco: Never Assessed Sex Assigned at Date Recorded Not on file documented as of this encounter Plan of Treatment Upcoming Encounters Date Type Specialty Care Team Description 06/30/2022 Telemedicine Diabetes Program Yahaira Arrieta RD N, LD, [facility] [address] [facility] [address] [address] (Wo rk) 07/14/2022 Telemedicine Diabetes Program Yahaira Arrieta RD N, LD, [facility] [address] [facility] [address] [address] (Wo rk) documented as of this encounter Visit Diagnoses Not on filedocumented in this encounter Care Teams Vamp Liner Relationship Specialty Start Date End Date Heydi Santana PA-C PCP - General 11/14/10 [address] [place], [place] [address] documented as of this encounter
--- OUTSIDE RECORDS SUMMARY | 2022-06-22 14:00 | XMS_ITS | Encounter Summary ---
:1990 Author Organization [facility] Address [address] [place] [address] Care Team Providers Name Role Phone Ben [...] Expiration Date Visits V isits Requested Authorized [id number] Authorized 12/20/2021 12/20/2022 15 15 Encounter Details Date Type Department Care Team Description 03/01/2022 Routine Department of Terrence Swenson Pregnan cy Examination Test With Positive Result (HCC) (Primary Dx); Obstetrics and M.D. Encounter For Supervision Of Normal Preg roberta Unspecified Trimester (HCC) Gynecology in [address] [place], [place] [address] [place], [place] [phone] (Work) [phone] Social History Tobacco Use Types Packs/Day Years [...] do you attend druze or Never 2021 jew services? Do you belong to any clubs or No 11/20/2021 organizations such as druze groups, unions, fraNeedly or athletic groups, or school groups? How [...] Date Recorded Female 12/02/2021 5:19 PM MOLD REPAIR TECHNICIAN documented as of this encounter Last [...] and Family: Twice a week ??? Attends Jainism Services: Never ??? Active Member of Clubs [...] documented as of this encounter Care Teams Box Folding Machine Operator Relationship Specialty Start Date End Date Ben Arce M.D. PCP - General Family Medicine 01/13/[address] [place] [address] documented as of this encounter
--- OUTSIDE RECORDS SUMMARY | 2022-06-22 14:00 | XMS_ITS | Clinical Summary ---
:1990 Author Organization [facility] Address [place] [address] Care Team Providers Name Role Phone Genny Lazo MD Primary Care Provider [phone] Allergies No known active allergies Medications [...] Father Premature CHD (under age 60) Father HI Allergies Mother Hypertension Mother Allergies Sister 4 [...] Total Labor/2nd/3rd Weight Sex Delivery Anes PTL Christnie A 1 A5 Name Clin Labor 2003 22w Neon 0d atal Yamilex se Comments: lost baby due to trauma, fall down stairs 12/05/2012 36w3d 10h 2.53 M Vag Epidural N Living 4 8 LARISSA,BABY Dr 00m/0h kg (5 BOY Ho uts 05m/ lb 9.2 oz) Delivery Location: [facility] Comments: Induced preeclampsia Current OB Episode Summary Episode Dates Estimated Date of Pregravid Weight TWG (As of ) Delivery 04/04/2022 - Present Unknown (06/22/2022) Last Filed Vital Signs Vital Sign Reading [...] Height 152.4 cm (5') 09/23/2015 2:13 PM FURNACE COMBUSTION TESTER Body Mass Index 31.05 09/23/2015 2:13 PM FURNACE COMBUSTION TESTER Plan of Treatment Upcoming Encounters Date Type [...] TASHI AKINS MA 2012-Present [address] [place] [address] [address] [facility] (Home) [place], [place] [phone] (Work) Lulu Mata Personal/Family Self 1990 [address] [facility] (Home) [place], [place] [phone] (Work) Advance Directives Latest Code Status on File Code Status Date Activated Date Inactivated Comments Full Code 12/05/2012 6:17 AM 12/07/2012 9:39 PM Full Code 12/05/2012 1:03 AM 12/05/2012 6:17 AM Full Code 12/03/2012 4:10 PM 12/05/2012 1:03 AM Full Code 11/30/2012 9:24 PM 12/01/2012 3:09 AM Full Code 11/30/2012 9:03 PM 11/30/2012 9:24 PM Care Teams Varnish Thinner Relationship Specialty Start Date End Date Genny Lazo MD PCP - General Family Practice 07/02/12 [address] [facility] [address] [place] [address]
--- OUTSIDE RECORDS SUMMARY | 2022-06-22 14:00 | XMS_ITS | Encounter Summary ---
:1990 Author Organization [employer] Address [address], [place] [address] Care Team Providers Name Role Phone Heydi Santana Jaquelin RENNER Primary Care Provider Encounter Details Date Type Department Care Team Description 03/26/2009 Office Visit [facility] Alison Aguirre MD Medicine [address] [place], [place] [phone] (Wo rk) Social History Tobacco Use Types Packs/Day Years Used Date Smoking Tobacco: Never Assessed Sex Assigned at Date Recorded Not on file documented as of this encounter Last Filed Vital Signs Vital Sign Reading Time Taken Comments Blood Pressure 124/78 03/26/2009 1:29 PM CDT Pulse 84 03/26/2009 1:29 PM CDT Temperature 37 ??C (98.6 ??F) 03/26/2009 1:29 PM CDT C: 37.0 C Respiratory Rate - - Oxygen Saturation - - Inhaled Oxygen Concentration - - Weight 63 kg (138 lb 15.7 oz) 03/26/2009 1:29 PM CDT C: 63.0kg Height - - Body Mass Index - - documented in this encounter Progress Notes Arturo Aguirre MD - 03/26/2009 12:01 AM CDT Progress Notes signed by Arturo Aguirre MD at 03/26/09 1401 Author: Arturo Aguirre MD Service: (none) Author Type: Physician Filed: 02/11/11 1344 Note Time: 03/26/09 0001 Status: Signed Commercial Accountant: Arturo Aguirre MD (Physician) Acute Clinic Visit IMPRESSION: Viral URI Acute Sinusitis SUBJECTIVE: History of Present Illness: Symptom(s): Afebrile. Fatigue. Ear pain. Nasal congestion/rhinorrhea. Sinus pain. Sore throat. No neck stiffness. No cough. Nasal congestion/rhinorrhea: Duration: 2 weeks. Severity: Moderate. Symptom Trend: Stable. Additional Details: more congested, not able to produce much mucus. Sinus pain: Duration: 1 1/2 weeks. Severity: Moderate. Symptom Trend: Stable. Sore throat: Duration: 1 1/2 weeks. Severity: Moderate. Symptom Trend: Worsening. Meds This Illness: benadryl Past History: No History of Respiratory Disease Tobacco: None. eczema, worsened because she has run out of prescription cream for a while Adverse Drug Reactions: Patient's ADR's were reviewed and updated today on the Health Profile screen of [facility]. Chronic Medications: None. OBJECTIVE: Vital Signs: Vital Signs taken today were reviewed on the flowsheet in [facility]. General Appearance: Well-appearing Eyes: External exam is normal bilaterally Ears: Bilateral pinnae, canals and TMs normal Nose/Sinuses: Moderately congested, Purulent drainage, Sinuses tender to percussion Oropharynx: Tonsils erythematous, Pharynx erythematous Neck: Anterior adenopathy Respiratory: Lung sounds clear to auscultation without respiratory distress Skin: eczematous patches on elbow, legs, and flank area. Lab & X-Ray: Rapid strep test is negative. ASSESSMENT: Viral URI Acute Sinusitis Eczema PLAN: Amoxicillin 500 mg. TID x 10d Symptomatic care Nutritious liquids Sinus Irrigation: Patient instructed and pamphlet provided Rest at home Refilled triamcinolone cream for eczema, if not effective, skin clinic follow up. *SH~PC~URIL ~Shorthand Note completed on: 03/26/2009 2:01 PM documented in this encounter Plan of Treatment Upcoming Encounters Date Type Specialty Care Team Description 06/30/2022 Telemedicine Diabetes Program Yahaira Arrieta, RD N, LD, [facility] [address] [address] (Wo rk) 07/14/2022 Telemedicine Diabetes Program Yahaira Arrieta, RD N, LD, [facility] [address] [address] (Wo rk) documented as of this encounter Visit Diagnoses Not on filedocumented in this encounter Care Teams Housekeeping Assistant Relationship Specialty Start Date End Date Heydi Santana PA-C PCP - General 11/14/10 [address] [place] [address] documented as of this encounter
--- OUTSIDE RECORDS SUMMARY | 2022-06-22 14:00 | XMS_ITS | Encounter Summary ---
:1990 Author Organization [facility] Address [address] [place] [address] Care Team Providers Name Role Phone Heydi Santana Jaquelin RENNER Primary Care Provider [phone] Encounter Details Date Type Department Care Team Description 11/17/2003 PN Conversion Only [facility] Soumya Sorenson MD [place] [address] [facility] [address] [place] [address] [phone] Social History Tobacco Use Types Packs/Day Years Used Date Smoking Tobacco: Never Assessed Sex Assigned at Date Recorded Not on file documented as of this encounter Progress Notes Soumya Sorenson MD - 11/17/2003 12:01 AM CST Progress Notes signed by Soumya Sorenson MD at 06/01/048 Author: Soumya Sorenson MD Service: (none) Author Type: Physician Filed: 02/09/11 1824 Note Time: 11/17/03 0001 Status: Signed Senior Db2 Systems Programmer: Soumya Sorenson MD (Physician) NAME: DILLAN MATA MR: [id number] ACCT: [id number] VISIT: [id number] DICTATING CLINICIAN: SOUMYA SORENSON MD JOB: [id number] CLINIC PROGRESS NOTE DATE OF VISIT: 11/17/2003 ASSESSMENT: Depression. PLAN: She is put on Prozac 10 mg daily and will have her return in four to six weeks for followup. Counseling also recommended. SUBJECTIVE: : 1990. Dillan is a 13-year-old female who presents for a consult regarding depression. She said she has been having trouble with decreased concentration, crying spells, and trouble sleeping at night. She said people at school make fun of her and she feels down about that. She apparently made some comment to her boyfriend, who called one of her friends, the stepdad called police to check on her for a possibility of suicidal ideation. She said she also has a lot of fights with her younger brother. She says she is eating okay and does continue to like to write poetry. MEDICATIONS: She is on no regular medications. ADR/ALLERGIES: SHE HAS NO KNOWN DRUG ALLERGIES. OBJECTIVE: VS: Wt: 125 lb. GENERAL: Well-developed, well-nourished female in no acute distress. KLM:[id number] C: 12/01/03 11:11 DOCUMENT: [id number] documented in this encounter Plan of Treatment Upcoming Encounters Date Type Specialty Care Team Description 06/30/2022 Telemedicine Diabetes Program Yahaira Arrieta RD N, LD, [facility] [address] [facility] [address] [address] (Wo rk) 07/14/2022 Telemedicine Diabetes Program Yahaira Arrieta RD N, LD, [facility] [address] [facility] [address] [facility] [address] [address] (Wo rk) documented as of this encounter Visit Diagnoses Not on filedocumented in this encounter Care Teams Arch Support Maker Relationship Specialty Start Date End Date Heydi Santana PA-C PCP - General 11/14/10 [address] [place] [address] documented as of this encounter
--- OUTSIDE RECORDS SUMMARY | 2022-06-22 14:00 | XMS_ITS | Clinical Summary ---
:1990 Author Organization [facility] Address [address] [place] [address] Care Team Providers Name Role Phone Ben Arce M.D. Primary Care Provider Source Comments Patient records contain information from all sites at [facility]. For routine questions regarding patient records, call [phone] during business hours, M-F 8:00 AM - 5:00 PM Central Time. Record requests for emergency care only can be directed to [phone] at any time.[facility] Allergies Active Allergy Reactions Severity Noted Date Comments [place] Pollen Itching, Wheezing 04/17/2022 Medications Medication Sig [...] COVID complete but needs b ooster/Flu declines Vacation Sales Advisor: Pap NIL w/ neg HPV 11/2021 Aneuploidy [...] told me she is transferr ing to [facility] because it is closer. History Of Falling [...] Supervision Of Normal Pregnanc y Unspecified Trimester ([facility]) 04/18/2022 Routine Obstetrics and Rylie Mcdowell, 23 Weeks Gestation Gynecology MGonzalez ([facility]) (Primary Dx) 04/17/2022 Hospital Encounter Labor and Delivery Rylie Mcdowell, 23 Weeks Gestation M.DMaribell (HCC) 03/31/2022 Hospital Encounter Laboratory Medicine Cheikh Gautam High Risk Minoo Garcia ([facility]) 03/27/2022 Routine Obstetrics and Cheikh Gautam High Ri sk ([facility]) (Primary Dx); Gynecology Minoo Garcia Encounter For S upervision Of Normal Unspecified Trimester ([facility]) 03/27/2022 Ancillary Procedure Obstetrics and Cheikh Gautam Enco unter For Gynecology Minoo Garcia Supervision Of Other Normal Pregnanc y Unspecified Trimester ([facility]) from Last 3 Months Immunizations [...] do you attend jain or Never 2021 hoahaoism services? Do you [...] at Date Recorded Female 12/02/2021 5:19 PM PICK UP DRIVER Last Filed Vital Signs Vital Sign Reading [...] this topic Medical Devices Implanted Type Area Nitrate Operator Device Shelf Model / Identifier Expiration [...] 06/12/2022 AM CDT 10:57 AM CDT Generic [facility] LAB POCT ORDERABLES-MANUAL Performing Organization Address City/State/ZIP Code Phon e Number [facility]- [facility] [address] [place] [address] [facility] [address] [place] (ABNORMAL) Urinalysis with Microscopic: Urine, Midstream (04/28/2022 [...] 8.0 04/28/2022 11:36 AM CDT NPRG Specific [place] 1.015 1.001 - 1.035 04/28/2022 11:36 AM [...] Organization Address City/State/ZIP Code Phon e Number [facility]- [address] [place] [address] [place] [address] [place] [address] [address]nd [facility] Influenza A/B, SARS CoV-2, PCR, Rapid, Varies (04/28/2022 8:48 AM CDT) [facility] Method Time Signature Influenza A, Negative Negative 04/28/2022 NPRG PCR, Rapid, V 9:26 AM CDT Influenza B, Negative Negative 04/28/2022 NPRG PCR, Rapid, V 9:26 AM CDT SARS CoV-2, Undetected Undetected 04/28/2022 NPRG PCR, Rapid, V 9:26 AM CDT Comment: ----ADDITIONAL INFORMATION---- This RT-PCR test was performed using the Carissa SARS-CoV-2 and Influenza A/B Reagent assay from [employer], which has received Emergency Use Authori zation(EUA) by the U.S. Food and Drug Administration . Fact sheets for this Emergency Use Autho rization (EUA) assay can be found at the following link s: For Healthcare Providers: https://www.fda.gov/media/537204/downloa d For Patients: https://www.fda.gov/media/912698/downloa d Infl A/B, SARS CoV-2, PCR, Source Swab, Nasopharynx 04/28/2022 9:02 AM CDT NPRG Specimen Anatomical Collection Method Collection Time Receive d Time (Source) Location / / Volume Laterality Varies 04/28/2022 8:48 AM 9:02 CDT AM CDT Rylie Mcdowell M.D. LAB MICROBIOLOGY - GENERAL O RDERABLES Performing Organization Address City/[facility] Phon e Number [address] LAB NPRG [place] [phone] Protein/Creatinine Ratio, Random, Urine (03/31/2022 5:34 [...] M.D. LAB URINE ORDERABLES Performing Organization Address [facility] Phon e Number [address] LAB NPRG [place] [phone] [address] ALT (Alanine Aminotransferase) (03/31/2022 5:31 PM CDT) Patholo gist Method Time Signature Alanine 10 7 - 45 03/31/2022 NPRG Aminotransferase U/L 5:59 PM CDT (ALT), P Specimen Anatomical Collection Method Collection Time Receive d Time (Source) Location / / Volume Laterality Blood (Blood, 03/31/2022 5:31 PM 03/31/20 5:34 Venous) CDT PM CDT Cheikh Gautam M.D. LAB BLOOD ADD-ON Performing Organization Address City/[facility] Phon e Number [address] [place] [address] LAB NPRG [place] [phone] AST (Aspartate Aminotransferase) (03/31/2022 5:31 PM CDT) [facility] gist Method Time Signature Aspartate 13 8 - 43 03/31/2022 NPRG Aminotransferase U/L 5:59 PM CDT (AST), P Specimen Anatomical Collection Method Collection Time Receive d Time (Source) Location / / Volume Laterality Blood (Blood, 03/31/2022 5:31 PM 03/31/20 5:34 Venous) CDT PM CDT Cheikh Gautam M.D. LAB BLOOD ADD-ON Performing Organization Address City/[facility] Code Phon e Number [address] [place] [address] LAB NPRG [place] [phone] (ABNORMAL) Creatinine with Estimated GFR (03/31/2022 5:31 PM CDT) Analysis Performed At Patho logist Time Signature Creatinine 0.58 (L) 0.59 - 03/31/2022 NPRG 1.04 mg/dL 5:59 PM CDT eGFR-Black/Afri >90 >=60 03/31/2022 NPRG can Grenadian mL/min/BSA 5:59 PM CDT Comment: ----ADDITIONAL INFORMATION---- [...] M.D. LAB BLOOD ADD-ON Performing Organization Address City/[facility] Phon e Number [address] [place] [address] [place] [address] Chlamydia / Gonorrhoeae Amplified RNA (03/27/2022 10:42 AM CDT) [facility] gist Method Time Signature Source Urine, [...] - GENERAL O RDERABLES Performing Organization Address City/[facility] Phon e Number [facility]- [address] [place] [address] [place] [address] [address] OB Anatomy Martins (03/27/2022 10:28 AM [...] / Subscriber ID Effective Phone Address T [facility] Group Dates EMPLOYERS EMPLOYERS [id number] 2019-Pres [phone] [address] [facility] INSURANCE INSURANCE [facility] [address] [address] [place] [address] [facility] [id number] 2022-Pres [phone] [address] HMO ent [address] [place] [address] Lulu Mata Workers Comp Self [address] (Home) [place] [address] Lulu Mata Third Alliance Party Self [address] Liability (Home) [place] [address] Care Teams Patient Account Specialist Relationship Specialty Start Date End Date Ben Arce M.D. PCP - General Family Medicine 01/13/[address] [place] [phone]
--- OUTSIDE RECORDS SUMMARY | 2022-06-22 14:00 | XMS_ITS | Encounter Summary ---
:1990 Author Organization [facility] Address [address] [place] [address] Care Team Providers Name Role Phone Ben Arce M.D. Primary Care Provider Encounter Details Date Type Department Care Team Description 03/31/2022 Hospital Encounter Department of Cheikh Gautam Laboratory Medicine Minoo Garcia ([facility]) in [place], [place] [address] [place] [phone] Social History Tobacco Use Types Packs/Day Years [...] do you attend nondenominational or Never 2021 alevism services? 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 LAB URINE ORDERABLES Performing Organization Address City/[facility]/ZIP Code Phon e Number [place] [address] [place], [place] [address] [facility] [place] [address] ALT (Alanine Aminotransferase) (03/31/2022 5:31 [...] [facility]/ZIP Code Phon e Number [place] [address] [place], [place] [address] [facility] [place] [address] AST (Aspartate Aminotransferase) (03/31/2022 5:31 [...] [facility]/ZIP Code Phon e Number [address] [address] [facility] [place] [address] [place] (ABNORMAL) Creatinine with Estimated GFR (03/31/2022 5:31 PM CDT) Analysis Performed At Patho logist Time Signature Creatinine 0.58 (L) 0.59 - 03/31/2022 NPRG 1.04 mg/dL 5:59 PM CDT eGFR-Black/Afri >90 >=60 03/31/2022 NPRG can Maltese mL/min/BSA 5:59 PM CDT Comment: ----ADDITIONAL INFORMATION---- [...] Organization Address City/State/ZIP Code Phon e Number [facility]- [address] [place] [address] [place] [address] [place] [address] [facility] [address] [place] documented in this encounter Visit Diagnoses Diagnosis High Risk (HCC) documented in this encounter Additional Health Concerns Assessment Noted Time PHQ-9 Depression Total Score: 4 12/20/2021 10:52 AM CS T documented as of this encounter Care Teams Herbologist Relationship Specialty Start Date End Date Ben Arce M.D. PCP - General Family Medicine 01/13/[address] [place] [phone] documented as of this encounter
--- OUTSIDE RECORDS SUMMARY | 2022-06-22 14:00 | XMS_ITS | Encounter Summary ---
:1990 Author Organization [facility] Address [address] [place] [address] Care Team Providers Name Role Phone Ben Arce M.D. Primary Care Provider Encounter Details Date Type Department Care Team Description 03/27/2022 Ancillary Procedure Department of Cheikh Gautam For Obstetrics and Minoo Garcia Supervision O f Other Gynecology in Normal [place], [place] Unspecified [address] Trimester (HCC) [place] [address] Social History Tobacco Use Types [...] do you attend bahai or Never 2021 spiritism services? 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 PCP - General Family Medicine 01/13/21 [address] [place] [address] documented as of this encounter
--- OUTSIDE RECORDS SUMMARY | 2022-06-22 14:00 | XMS_ITS | Encounter Summary ---
:1990 Author Organization [facility] Address [address] [place] [address] Care Team Providers Name Role Phone Ben Arce M.D. Primary Care Provider Reason for Visit Reason Comments Hand Injury Encounter Details Date Type Department Care Team Description 02/11/2022 Emergency [place] [facility] Sigrid Forbes ontusion Hand Initial Department DMinoo Right (Primary Dx) [address] [place] [phone] (Wo rk) Social History Tobacco Use Types [...] do you attend christian or Never 2021 gnosticism services? Do you belong to any clubs or No 11/20/2021 organizations such as christian groups, unions, fraternal or athletic groups, or [...] at Date Recorded Female 12/02/2021 5:19 PM OLIVE PACKER documented as of this encounter Last Filed [...] clinic by calling the appointment center at [phone]. Thank you for choosing [facility] for your care. It was a pleasure taking care of you today in our Emergency Department. AttachmentsThe following attachments cannot be sent through Care Everywhere.Hand Contusion [id number] (Bengali)documented in this encounter Medications at Time [...] Forbes M.D. - 02/11/2022 9:44 PM CDT [facility] EMERGENCY DEPARTMENT ENCOUNTER Patient Name: Lulu Mata PCP: Ben Arce M.D. SUBJECTIVE CHIEF COMPLAINT/REASON FOR VISIT Hand Injury HISTORY OF PRESENT ILLNESS Lulu Mata is a 31 y.o. female presenting with right hand pain. She was at the [facility] today when her hand was shut into [...] documented as of this encounter Care Teams Documentation Billing Clerk Relationship Specialty Start Date End Date Ben Arce M.D. PCP - General Family Medicine 01/13/[address] [facility] [phone] documented as of this encounter
--- OUTSIDE RECORDS SUMMARY | 2022-06-22 14:00 | XMS_ITS | Encounter Summary ---
:1990 Author Organization [facility] Address [address] [place] [address] Care Team Providers Name Role Phone Heydi Santana PA-C Primary Care Provider [phone] Encounter Details Date Type Department Care Team Description 11/02/2004 PN Conversion Only CONV [id number] Social History Tobacco Use Types Packs/Day Years Used Date Smoking Tobacco: Never Assessed Sex Assigned at Date Recorded Not on file documented as of this encounter Plan of Treatment Upcoming Encounters Date Type Specialty Care Team Description 06/30/2022 Telemedicine Diabetes Program Yahaira Arrieta, NATANAEL N, LD, CDCES [address] [facility] N [id number] (Wo rk) 07/14/2022 Telemedicine Diabetes Program Yahaira Arrieta RD N, LD, CDC[facility] [address] [facility] ET [facility] N [address] (Wo rk) documented as of this encounter Visit Diagnoses Not on filedocumented in this encounter Care Teams Mother Repairer Relationship Specialty Start Date End Date Heydi Santana PA-C PCP - General 11/14/10 [address] [place] [address] documented as of this encounter
--- OUTSIDE RECORDS SUMMARY | 2022-06-22 14:00 | XMS_ITS | Encounter Summary ---
:1990 Author Organization [facility] Address [address] [place] [address] Care Team Providers Name Role Phone Max Heydi Jaquelin RENNER Primary Care Provider [phone] Encounter Details Date Type Department Care Team Description 10/04/2004 PN Conversion Only [place] [facility] N Patito Jorge, [address] HEALTHCARE MARKETER, SWITCHER [address] [place] [address] [address] [place], [place] [address] Social History Tobacco Use Types Packs/Day Years Used Date Smoking Tobacco: Never Assessed Sex Assigned at Date Recorded Not on file documented as of this encounter Plan of Treatment Upcoming Encounters Date Type Specialty Care Team Description 06/30/2022 Telemedicine Diabetes Program Yahaira Arrieta RD N, LD, CDCES [address] [facility] N [id number] (Wo rk) 07/14/2022 Telemedicine Diabetes Program Yahaira Arrieta RD N, LD, CDCES [address] ET [facility] N [id number] (Wo rk) documented as of this encounter Procedures Procedure Name Priority Date/Time Associated Diagnosis Comme nts STREP GROUP A Routine 10/04/2004 3:11 PM Results for this ANTIGEN TEST LAY OUT WORKER procedure are i n the results section. BETA STREP FOLLOWUP Routine 10/04/2004 3:11 PM Re sults for this LAY OUT WORKER procedure are i n the results section. documented in this encounter Results Strep Group A Antigen Test (10/04/2004 3:11 PM LAY OUT WORKER) Analysis Performed At Patho logist Time Signature Strep Group A Negative Negative HP CONVERSION Antigen Test Comment: Culture to follow. Specimen (Source) Anatomical Collection Method Collection Time Re ceived Time Location / / Volume Laterality 10/04/2004 3:11 PM LAY OUT WORKER Patito Jorge APRN, SWITCHER LAB_1 Performing Organization Address City/State/ZIP Code Phon e Number HP CONVERSION Beta Strep Followup (10/04/2004 3:11 PM LAY OUT WORKER) P athologist Signature Strep Screen SEE TEXT HP CONVERSION Comment: Patient: DILLAN MATA Rapid Strep Follow up Culture @ ? Collected: ??[id number] ??[id number] Source: Throat ?Processed: ??[id number] ??[id number] Final Report ------ ?[id number] ??[id number] No beta hemolytic Strep group A isolated . @ = Rapid F/U Cult Performed at ??[address] [facility] [place] ?[address] Specimen (Source) Anatomical Collection Method Collection Time Re ceived Time Location / / Volume Laterality 10/04/2004 3:11 PM LAY OUT WORKER Patito A Jorge HEALTHCARE MARKETER, SWITCHER LAB_1 Performing Organization Address City/State/ZIP Code Phon e Number HP CONVERSION documented in this encounter Visit Diagnoses Not on filedocumented in this encounter Care Teams Cat Skinner Relationship Specialty Start Date End Date Heydi Santana PA-C PCP - General 11/14/10 [address] [place] [address] documented as of this encounter
--- OUTSIDE RECORDS SUMMARY | 2022-06-22 14:00 | XMS_ITS | Encounter Summary ---
:1990 Author [facility] Address [address] [address] Care Team Providers Name Role Phone Heydi Santana PA-C Primary Care Provider [phone] Encounter Details Date Type Department Care Team Description 11/13/2003 PN Conversion Only [place] CONVERSION [address] [place] [address] Social History Tobacco Use Types Packs/Day Years Used Date Smoking Tobacco: Never Assessed Sex Assigned at Date Recorded Not on file documented as of this encounter Plan of Treatment Upcoming Encounters Date Type Specialty Care Team Description 06/30/2022 Telemedicine Diabetes Program Yahaira Arrieta RD N, LD, [facility] [address] [facility] N [id number] (Wo rk) 07/14/2022 Telemedicine Diabetes Program Yahaira Arrieta RD N, LD, [facility] [address] [facility] ET [facility] N [address] (Wo rk) documented as of this encounter Visit Diagnoses Not on filedocumented in this encounter Care Teams Drug And Alcohol Counsellor Relationship Specialty Start Date End Date Heydi Santana PA-C PCP - General 11/14/10 [address] [place], [place] [address] documented as of this encounter
--- OUTSIDE RECORDS SUMMARY | 2022-06-22 14:00 | XMS_ITS | Encounter Summary ---
:1990 Author [facility] Address [address] [address] Care Team Providers Name Role Phone Heydi Santana PA-C Primary Care Provider [phone] Encounter Details Date Type Department Care Team Description 12/07/2003 PN Conversion Only [facility] CONVERSION [address] [place] [address] Social History Tobacco Use Types Packs/Day Years Used Date Smoking Tobacco: Never Assessed Sex Assigned at Date Recorded Not on file documented as of this encounter Plan of Treatment Upcoming Encounters Date Type Specialty Care Team Description 06/30/2022 Telemedicine Diabetes Program Yahaira Arrieta RD N, LD, [facility] [address] [facility] N [address] (Wo rk) 07/14/2022 Telemedicine Diabetes Program Yahaira Arrieta RD N, LD, [facility] [address] [facility] ET [facility] N [address] (Wo rk) documented as of this encounter Visit Diagnoses Not on filedocumented in this encounter Care Teams Accounting Professional Relationship Specialty Start Date End Date Heydi Santana PA-C PCP - General 11/14/10 [address] [place], [place] [address] documented as of this encounter
--- OUTSIDE RECORDS SUMMARY | 2022-06-22 14:00 | XMS_ITS | Encounter Summary ---
:1990 Author Organization [facility] Address [address] [place] [address] Care Team Providers Name Role Phone MaxHeydi christensen Jaquelin RENNER Primary Care Provider [phone] Encounter Details Date Type Department Care Team Description 03/26/2009 PN Conversion Only [place] [facility] [place] Arturo Aguirre MD [address] [place] [address] [place] [address] (Wo rk) Social History Tobacco Use Types Packs/Day Years Used Date Smoking Tobacco: Never Assessed Sex Assigned at Date Recorded Not on file documented as of this encounter Plan of Treatment Upcoming Encounters Date Type Specialty Care Team Description 06/30/2022 Telemedicine Diabetes Program Yahaira Arrieta RD N, LD, [facility] [address] [facility] N [id number] (Wo rk) 07/14/2022 Telemedicine Diabetes Program Yahaira Arrieta RD N, LD, CDCES [address] [facility] ET [facility] N [id number] (Wo rk) documented as of this encounter Procedures Procedure Name Priority Date/Time Associated Diagnosis Comme nts STREP GROUP A Routine 03/26/2009 3:15 PM Results for this ANTIGEN TEST CDT procedure are i n the results section. BETA STREP FOLLOWUP Routine 03/26/2009 3:15 PM Re sults for this CDT procedure are i n the results section. documented in this encounter Results Strep Group A Antigen Test (03/26/2009 3:15 PM CDT) Analysis Performed At Patho logist Time Signature Strep Group A Negative Negative HP CONVERSION Antigen Test Comment: Culture to follow. Specimen (Source) Anatomical Collection Method Collection Time Re ceived Time Location / / Volume Laterality 03/26/2009 3:15 PM CDT Arturo Aguirre MD LAB_1 Performing Organization Address [facility] Phon e Number HP CONVERSION Beta Strep Followup (03/26/2009 3:15 PM CDT) P athologist Signature Strep Screen SEE TEXT HP CONVERSION Comment: Patient: DILLAN MATA Rapid Strep Follow up Culture ? Collected: ??[id number] ??[id number] Source: Throat ?Processed: ??[id number] ??[id number] ? 1B Final Report ------ ?[id number] ??[id number] No beta hemolytic Strep group A isolated . Specimen (Source) Anatomical Collection Method Collection Time Re ceived Time Location / / Volume Laterality 03/26/2009 3:15 PM CDT Arturo Aguirre MD LAB_1 Performing Organization Address City/State/ZIP Code Phon e Number HP CONVERSION documented in this encounter Visit Diagnoses Not on filedocumented in this encounter Care Teams Director Investment Banking Relationship Specialty Start Date End Date Heydi Santana PA-C PCP - General 11/14/10 [address] [place] [address] documented as of this encounter
--- OUTSIDE RECORDS SUMMARY | 2022-06-22 14:00 | XMS_ITS | Encounter Summary ---
:1990 Author Organization [facility] Address [address] [place] [address] Care Team Providers Name Role Phone Ben Arce M.D. Primary Care Provider Encounter Details Date Type Department Care Team Description 02/28/2022 Orders Only Department of Obstetrics and Gau Terrence zamarripa M.D. Gynecology in [address] [address] [place] [address] [phone] Social History Tobacco Use Types Packs/Day Years [...] do you attend islam or Never 2021 gnosticism services? 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 PCP - General Family Medicine 01/13/[address] [facility] [phone] documented as of this encounter
--- OUTSIDE RECORDS SUMMARY | 2022-06-22 14:00 | XMS_ITS | Encounter Summary ---
:1990 [facility] Address [address] [address] Care Team Providers Name Role Phone MaxHedyi christensen Jaquelin RENNER Primary Care Provider [phone] Encounter Details Date Type Department Care Team Description 10/04/2004 [facility] Patito Castillo APRN, [address] [place] [address] [address] [phone] [place], [place] [address] Social History Tobacco Use Types Packs/Day Years Used Date Smoking Tobacco: Never Assessed Sex Assigned at Date Recorded Not on file documented as of this encounter Progress Notes Patito Jorge - 10/04/2004 12:01 AM CST Progress Notes signed by Patito Jorge APRN, MECHATRONICS TECHNICIAN at 10/04/04 1502 Author: HÉCTOR Martin Service: (none) Author Type: Nurse Practitioner Filed: 02/10/11 0201 Note Time: 10/04/04 0001 Status: Signed Used Equipment Sales Representative: HÉCTOR Martin (Nurse Practitioner) Acute Clinic Visit IMPRESSION: Viral Illness Contact dermatitis SUBJECTIVE: Chief Complaint: URI symptoms History of Present Illness: Illness duration: 1 1/2 weeks Symptoms stable Nasal congestion/rhinorrhea Sore throat Cough Rash arms and neck, itchy Meds This Illness: No acute medications being used Past History: No History of Respiratory Disease Smoking: No Adverse Drug Reactions: Patient's ADR's were reviewed and updated today on the Health Profile screen of [facility] Chronic Medications: None: OBJECTIVE: Vital Signs: T: - degrees F. P: - R: - BP: - Weight: 135 lbs. General Appearance: Well-appearing Eyes: External exam is normal bilaterally Ears: Bilateral pinnae, canals and TMs normal Nose/Sinuses: moderately congested, sinuses tender to percussion Oropharynx: pharynx erythematous Neck: Supple without significant adenopathy or thyromegaly Respiratory: Lung sounds clear to auscultation without respiratory distress Derm: fine erthematous rash bilateral anticubital space and upper chest Lab & X-Ray: WBC normal ASSESSMENT: Viral Illness Contact dermatitis PLAN: Throat Culture pending Symptomatic care RTC PRN if not gradually improving Triamcinolone 0.1% cream applied sparingly tid for rash *SH~PC~URIL ~[place] Note completed on: 10/04/2004 2:17 PM RPERSON ANESTHESIOLOGY documented in this encounter Plan of Treatment Upcoming Encounters Date Type Specialty Care Team Description 06/30/2022 Telemedicine Diabetes Program Yahaira Arrieta, NATANAEL N, LD, CDCES [address] [facility] [place] [id number] (Wo rk) 07/14/2022 Telemedicine Diabetes Program Yahaira Arrieta RD N, LD, CDCES [address] [facility] [place] [id number] (Wo rk) documented as of this encounter Visit Diagnoses Not on filedocumented in this encounter Care Teams Driver Courier Relationship Specialty Start Date End Date Heydi Santana PA-C PCP - General 11/14/10 [address] [place], [place] [id number] documented as of this encounter
--- OUTSIDE RECORDS SUMMARY | 2022-06-22 14:00 | XMS_ITS | Encounter Summary ---
:1990 Author Organization [facility] Address [address] [place] [address] Care Team Providers Name Role Phone Ben Arce M.D. Primary Care Provider Encounter Details Date Type Department Care Team Description 02/01/2022 Hospital Encounter Department of Terrence Swenson High Risk Laboratory Medicine MGonzalez in [address] [address] [place], [place] [phone] [address] (Work) [phone] Social History Tobacco Use Types Packs/Day Years [...] do you attend advent or Never 2021 anglican services? 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 documented in this encounter Results [id number] Plus-Sent Out Lab (02/01/2022 9:52 AM CDT) [...] Organization Address City/State/ZIP Code Phon e Number [facility] [address] [place] [address] Private Outlet [facility] [place] [id number] documented in this encounter Visit Diagnoses Diagnosis High Risk (HCC) documented in this encounter Additional Health Concerns Assessment Noted Time PHQ-9 Depression Total Score: 4 12/20/2021 10:52 AM CS T documented as of this encounter Care Teams Insurance Adviser Relationship Specialty Start Date End Date Ben Arce M.D. PCP - General Family Medicine 01/13/[address] [facility] [place] [address] documented as of this encounter
--- OUTSIDE RECORDS SUMMARY | 2022-06-22 14:00 | XMS_ITS | Encounter Summary ---
:1990 Author Organization [facility] Address [address] [place] [address] Care Team Providers Name Role Phone Ben [...] Expiration Date Visits Requ ested Visits Authorized [id number] 1 1 Encounter Details Date Type Department Care Team Description 04/17/2022 Hospital Encounter [facility] Rylie Mcdowell, 23 Weeks Gestation [facility] ([facility], [place] [address] [address] [place], [place] [phone] [address] (Work) [phone] Social History Tobacco Use Types Packs/Day Years [...] do you attend mosque or Never 2021 mormon services? Do you [...] at Date Recorded Female 12/02/2021 5:19 PM AVIONICS SYSTEMS ENGINEER documented as of this encounter [...] Category I tracing. No UTC's traced via [facility]. RN palpated during one episode ofuterine cramping, [...] documented as of this encounter Care Teams Unit Trust Manager Relationship Specialty Start Date End Date Bne Arce M.D. PCP - General Family Medicine 01/13/[address] [place] [address] documented as of this encounter
--- OUTSIDE RECORDS SUMMARY | 2022-06-22 14:00 | XMS_ITS | Encounter Summary ---
:1990 Author Organization [facility] Address [address] [place] [address] Care Team Providers Name Role Phone Ben Arce M.D. Primary Care Provider Reason for Visit Reason Comments Vomiting During Auth/Cert Specialty Diagnoses / Procedures Referred By Contact Refer red To Contact Diagnoses Procedures Referral ID Status Reason Start Date Expiration Date Visits Requ ested Visits Authorized [id number] 1 1 Encounter Details Date Type Department Care Team Description 06/12/2022 [facility], [address] [facility] Second [place], [place] [address] [place] [address] [place], [place] [phone] (Wo rk) [address] [phone] Social History Tobacco Use Types Packs/Day Years [...] do you attend yazdanism or Never 2021 judaism services? Do you [...] at Date Recorded Female 12/02/2021 5:19 PM CURRICULUM DEVELOPMENT COORDINATOR documented as of this encounter Last [...] appointment on Sunday with her PCP in [place]. Education provided on staying hydrated and how [...] Organization Address City/State/ZIP Code Phon e Number [facility]- [address] [place], [place] [address] [facility] [place] [address] [facility] [address] documented in this encounter Visit Diagnoses Not on filedocumented in this encounter Additional Health Concerns Assessment Noted Time PHQ-9 Depression Total Score: 4 12/20/2021 10:52 AM CS T documented as of this encounter Care Teams Pre Sales Systems Engineer Relationship Specialty Start Date End Date Ben Arce M.D. PCP - General Family Medicine 01/13/[address] [place] [address] documented as of this encounter
--- OUTSIDE RECORDS SUMMARY | 2022-06-22 14:00 | XMS_ITS | Encounter Summary ---
:1990 Author Organization [facility] Address [address] [place] [address] Care Team Providers Name Role Phone Ben Arce M.D. Primary Care Provider Reason for Visit Reason Comments Nausea Vomiting During Auth/Cert Specialty Diagnoses / Procedures Referred By Contact Refer red To Contact Diagnoses . Procedures . Referral ID Status Reason Start Date Expiration Date Visits Requ ested Visits Authorized [id number] 1 1 Encounter Details Date Type Department Care Team Description 04/28/2022 Hospital Encounter [facility] Rylie Mcdowell Encounte r [facility] Praguolive Hennessy Supervision Of [facility], [place] [address] [facility] Normal Floor [place], [place] Unspecified [address] [place] [address] Trimester (HCC) [place], [place] [phone] [address] (Work) [phone] Social History Tobacco Use Types Packs/Day Years [...] do you attend alevism or Never 2021 islam services? Do you [...] at Date Recorded Female 12/02/2021 5:19 PM BARK PEELER documented as of this encounter Last Filed [...] stated she has a clinic appointment at [facility] on Sunday with her normal doctor. Education [...] 8.0 04/28/2022 11:36 AM CDT NPRG Specific [place] 1.015 1.001 - 1.035 04/28/2022 11:36 AM [...] Organization Address City/State/ZIP Code Phon e Number [place] [address] [address] [place], [place] [address] [place] [address] Influenza A/B, SARS CoV-2, PCR, Rapid, Varies (04/28/2022 8:48 AM CDT) [facility] Method Time Signature Influenza A, Negative Negative 04/28/2022 NPRG PCR, Rapid, V 9:26 AM CDT Influenza B, Negative Negative 04/28/2022 NPRG PCR, Rapid, V 9:26 AM CDT SARS CoV-2, Undetected Undetected 04/28/2022 NPRG PCR, Rapid, V 9:26 AM CDT Comment: ----ADDITIONAL INFORMATION---- This RT-PCR test was performed using the Carissa SARS-CoV-2 and Influenza A/B Reagent assay from [employer], which has received Emergency Use Authori zation(EUA) by the U.S. Food and Drug Administration . Fact sheets for this Emergency Use Autho rization (EUA) assay can be found at the following link s: For Healthcare Providers: https://www.fda.gov/media/193120/downloa d For Patients: https://www.fda.gov/media/574639/downloa d Infl A/B, SARS CoV-2, PCR, Source Swab, Nasopharynx 04/28/2022 9:02 AM CDT NPRG Specimen Anatomical Collection Method Collection Time Receive d Time (Source) Location / / Volume Laterality Varies 04/28/2022 8:48 AM 9:02 CDT AM CDT Rylie Mcdowell M.D. LAB MICROBIOLOGY - GENERAL O RDERABLES Performing Organization Address City/State/ZIP Code Phon e Number [address] [address] [place] [address] documented in this encounter Visit Diagnoses [...] documented as of this encounter Care Teams Guest Services Lead Relationship Specialty Start Date End Date Ben Arce M.D. PCP - General Family Medicine 01/13/[address] [place] [phone] documented as of this encounter
--- OUTSIDE RECORDS SUMMARY | 2022-06-22 14:00 | XMS_ITS | Encounter Summary ---
:1990 Author Organization [facility] Address [address] [place] [address] Care Team Providers Name Role Phone Ben Arce M.D. Primary Care Provider Reason for Referral Outpatient (Routine) - Authorized Specialty Diagnoses / Procedures Referred By Contact Refer red To Contact Diagnoses Pain Back Pain Neck Ben Arce M.D. External, Referring [address] [place] [address] Referral ID Status Reason Start Expiration Visits Visits Date Date Requested Authorized [id number] Authorized Patient 03/01/2022 03/01/2023 1 1 Preference Reason for Visit Reason Comments Outside Order Insurance Referral Encounter Details Date Type Department Care Team Description 03/01/2022 Clinical Communication Department of Ben Arce, Outs [facility] Order Family Medicine in [place] (Insurance Referral) [place] [address] [place] [address] [facility] [address] [phone] Social History Tobacco Use Types Packs/Day Years [...] do you attend moravian or Never 2021 gnosticist services? Do you belong to any clubs or No 11/20/2021 organizations such as moravian groups, unions, [employer] or athletic groups, or school groups? How [...] Date Recorded Female 12/02/2021 5:19 PM PRODUCT DELIVERY SPECIALIST documented as of this encounter Miscellaneous Notes Telephone Encounter - Jossie Ramos - 03/06/2022 8:41 AM CDT [facility] restricted referral faxed 03/02/22 with office visit notes. Also faxed [facility] restricted forms for OB care [facility]. Thank you, Jossie Referrals 03/02/22 Lore called from [facility] [phone]. This referral has been processed. 03/03/22sla. Telephone Encounter - Ben Arce M.D. - 03/01/2022 3:07 PM CDT Order signed. Telephone Encounter - Jossie Ramos - 03/01/2022 2:[address] Arce, ORDER/LAB/REFERRAL REQUEST: Name of test/referral/order requested: [facility] [place] i [id number] Reason for request: Back and neck pain Date needed: 02/26/22 Order pended to this encounter, once signed we can submit the Restricted [facility] referral for insurance. Thank you, Jossie Referrals 03/01/22 documented in this encounter Plan of Treatment Not on filedocumented as of this encounter Visit Diagnoses Diagnosis Pain Back - Primary Pain Neck documented in this encounter Additional Health Concerns Assessment Noted Time PHQ-9 Depression Total Score: 4 12/20/2021 10:52 AM CS T documented as of this encounter Care Teams Electrical Tech Relationship Specialty Start Date End Date Ben Arce M.D. PCP - General Family Medicine 01/13/[address] [place] [address] documented as of this encounter
--- OUTSIDE RECORDS SUMMARY | 2022-06-22 14:01 | XMS_ITS | Encounter Summary ---
:1990 Author Organization [facility] Address [address] [place] [address] Care Team Providers Name Role Phone Ben Arce M.D. Primary Care Provider Reason for Visit Reason Comments Routine Visit 12+2weeks Sinusitis Concerns Outpatient (Routine) - Authorized Specialty Diagnoses / Procedures Referred By Contact Refer red To Contact Obstetrics and Cheikh Gautam [facility] william Gynecology MGonzalez Referral ID Status Reason Start Date Expiration Date Visits V isits Requested Authorized [id number] Authorized 12/20/2021 12/20/2022 15 15 Encounter Details Date Type Department Care Team Description 02/01/2022 Routine Department of Terrence Swenson [facility] Obstetrics and MGonzalez (Primary Dx) Gynecology in [address] [address] [place], [place] [phone] [address] (Work) [phone] Social History Tobacco Use Types Packs/Day Years [...] do you attend sikhism or Never 2021 mu-ism services? Do you [...] at Date Recorded Female 12/02/2021 5:19 PM MOVING PICTURE OPERATOR documented as of this encounter Last Filed Vital Signs Vital Sign Reading Time Taken Comments Blood Pressure 130/86 02/01/2022 8:50 AM CDT Pulse - - Temperature - - Respiratory Rate - - Oxygen Saturation - - Inhaled Oxygen Concentration - - Weight 69.9 kg (154 lb 1.6 oz) 02/01/2022 8:49 AM CDT Height - - Body Mass Index 29.09 12/09/2021 8:31 AM MOVING PICTURE OPERATOR documented in this encounter Progress Notes Terrence [...] ASSESSMENT / PLAN #1 High Risk - [id number] Plus-Sent Out Lab; Future; Expected date: 02/01/2022 [...] has been sent to her pharmacy in [place]. Most of the early symptoms of including [...] on filedocumented as of this encounter Results [id number] Plus-Sent Out Lab (02/01/2022 9:52 AM CDT) [...] Organization Address City/State/ZIP Code Phon e Number [facility] [address] [place] [address] [employer] [place] [address] documented in this encounter Visit Diagnoses Diagnosis High Risk (HCC) - Primary documented in this encounter Additional Health Concerns Assessment Noted Time PHQ-9 Depression Total Score: 4 12/20/2021 10:52 AM CS T documented as of this encounter Care Teams Tractor Driver Teamster Relationship Specialty Start Date End Date Ben Arce M.D. PCP - General Family Medicine 01/13/[address] [place] [phone] documented as of this encounter
--- OUTSIDE RECORDS SUMMARY | 2022-06-22 14:01 | XMS_ITS | Encounter Summary ---
:1990 Author Organization [facility] Address [address] [place] [address] Care Team Providers Name Role Phone Ben Arce M.D. Primary Care Provider Reason for Visit Reason Comments Communication New script Encounter Details Date Type Department Care Team Description 10/06/2021 Clinical Communication Department of Ben Arce Comm unication (New Family Medicine in [place] script) [place] [address] [facility] [address] [facility] [address] [phone] Social History Tobacco Use Types Packs/Day Years [...] do you attend hoahaoism or Never 2021 hindu services? Do you belong to any clubs [...] at Date Recorded Female 12/02/2021 5:19 PM SCHOOL LIBRARY MEDIA PROGRAM DIRECTOR documented as of this encounter Miscellaneous Notes Telephone Encounter - Babita Ramachandran R.N. - 10/06/2021 3:58 PM SCHOOL LIBRARY MEDIA PROGRAM DIRECTOR Portal message sent to patient that if she is on restricted plan she needs to contact her insurance for an exception. OL LIBRARY MEDIA PROGRAM DIRECTOR Telephone Encounter - Alana Perkins L.P.N. - 10/06/2021 3:02 PM SCHOOL LIBRARY MEDIA PROGRAM DIRECTOR Spoke to pt and informed her that we would need to know which medication for eye drops was ordered so that Dr Arce could send it in. Pt states she has no idea what it is. Informed pt to find out which medication it is and call us back with that info. OL LIBRARY MEDIA PROGRAM DIRECTOR Telephone Encounter - Migdalia Pompa - 10/06/2021 [...] Please call patient with plan. Thank you. OL LIBRARY MEDIA PROGRAM DIRECTOR documented in this encounter Plan of Treatment Not on filedocumented as of this encounter Visit Diagnoses Not on filedocumented in this encounter Care Teams Trim And Burr Operator Relationship Specialty Start Date End Date Ben Arce M.D. PCP - General Family Medicine 01/13/[address] [place] [phone] documented as of this encounter
--- OUTSIDE RECORDS SUMMARY | 2022-06-22 14:01 | XMS_ITS | Encounter Summary ---
:1990 Author Organization [facility] Address [address] [place] [address] Care Team Providers Name Role Phone Ben Arce M.D. Primary Care Provider Reason for Referral Specialty Diagnoses / Procedures Referred By Contact Refer red To Contact Ben Arce M.D. [facility] [address] [place] [address] Referral ID Status Reason Start Date Expiration Date Visits Requ ested Visits Authorized NE MERCHANDISING SPECIALIST Encounter Details Date Type Department Care Team Description 11/20/2021 Orders Only [facility] PCP [facility]TH MNT Kimberly Arce M.D. [address] [place], [place] [phone] (Wo rk) Social History [...] do you attend religious or Never 2021 voodoo services? Do you [...] at Date Recorded Female 12/02/2021 5:19 PM ONLINE MERCHANDISING SPECIALIST documented as of this encounter Plan of Treatment Scheduled Referrals Name Type Priority Associated Order Schedule Diagnoses Covid immunization Outpatient Referral Routine Ex pected: office visit Booster 022 (Approximate), Expires: 11/20/2022 documented as of this encounter Visit Diagnoses Not on filedocumented in this encounter Care Teams Sap Payroll Consultant Relationship Specialty Start Date End Date Ben Arce M.D. PCP - General Family Medicine 01/13/[address] [place] [facility] [place] [phone] documented as of this encounter
--- OUTSIDE RECORDS SUMMARY | 2022-06-22 14:01 | XMS_ITS | Encounter Summary ---
:1990 Author Organization [facility] Address [address] [place] [address] Care Team Providers Name Role Phone Ben Arce M.D. Primary Care Provider Reason for Visit Reason Comments Nurse Visit NOB ED/INTAKE APPT Encounter Details Date Type Department Care Team Description 12/08/2021 Virtual Visit Department of Terrence Swenson M.D. [address] [phone] Encounter For Supervision Of Other Stella l Unspecified Trimester (Primary Dx); Obstetrics and Autumn Patel R.N. [address] [address] Examination Test With Positive Result Gynecology in [place], [place] [address] [address] Social History Tobacco Use Types [...] do you attend pentecostalism or Never 2021 faith services? Do you [...] at Date Recorded Female 12/02/2021 5:19 PM STORE OPERATIONS SPECIALIST documented as of this encounter Patient Instructions [...] Provided Today: Beginnings: , , and [facility] brochure-[facility] Emergency Department of [facility] E OPERATIONS SPECIALIST documented in this encounter Progress Notes Autumn Patel R.N. - 12/08/2021 1:30 PM CST Consult conducted via real-time audio/video technology by Autumn Patel R.N. in [facility] to the patient in Patient's Home. episode opened-please see history for details. Conceived with Nexplanon in place-this was removed after positive Beta Hcg. 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 Denies concerns. Encouraged to call with questions or concerns. E OPERATIONS SPECIALIST documented in this encounter Plan of Treatment Not on filedocumented as of this encounter Results Hepatitis C Virus Antibody Screen (12/20/2021 11:34 AM STORE OPERATIONS SPECIALIST) athologist Signature HCV Ab Scrn Negative Negative 12/21/2021 [facility] , S 8:10 AM STORE OPERATIONS SPECIALIST Comment: Cltfgl-bd-molftr ratio is <1.00 . Specimen Anatomical Collection Method Collection Time Receive d Time (Source) Location / / Volume Laterality Blood (Blood, 12/20/2021 11:34 12/21/2021 6:40 Venous) AM STORE OPERATIONS SPECIALIST AM STORE OPERATIONS SPECIALIST Cheikh Gautam M.D. LAB MICROBIOLOGY - BLOOD ORD ERABLES Performing Organization Address City/State/ZIP Code Phon e Number [facility] [address] [place] [phone] [facility] [place] [address] Laboratory Medicine and Pathology [address] SANDOVAL Syphilis Total Ab w/ Reflex, Serum (12/20/2021 11:34 AM STORE OPERATIONS SPECIALIST) [facility] Method Time Signature Syphilis Nonreactive Nonreactive 12/21/2021 [facility] Total Ab w/ 11:40 AM STORE OPERATIONS SPECIALIST Reflex Comment: No serologic evidence of infection with T. pallidum (syphilis). ??Repeat testing may be cons idered in patients with suspected acute or primary syphilis in 2-4 weeks. For additional information on interpreta tion of the syphilis reverse algorithm and resul ts, see: [email or web address] Specimen Anatomical Collection Method Collection Time Receive d Time (Source) Location / / Volume Laterality Blood (Blood, 12/20/2021 11:34 12/20/2021 6:27 Venous) AM STORE OPERATIONS SPECIALIST PM STORE OPERATIONS SPECIALIST Cheikh Gautam M.D. LAB BLOOD ADD-ON Performing Organization Address City/[facility] [place] Phon e Number [facility]- [address] [place] [address] [phone] [place] [address] System [address] Rubella Antibodies, IgG (12/20/2021 11:34 AM STORE OPERATIONS SPECIALIST) athologist Signature Rubella Ab, Positive 12/21/2021 [facility] IgG, S 11:40 AM STORE OPERATIONS SPECIALIST Comment: Results suggest response to immunization or prior exposure to the virus. ----REFERENCE VALUE---- Vaccinated: Positive (>=1.0 AI) Unvaccinated: Negative (<=0.7 AI) Rubella IgG Antibody Index 2.6 12/21/2021 11 :40 AM STORE OPERATIONS SPECIALIST [facility] Specimen Anatomical Collection Method Collection Time Receive d Time (Source) Location / / Volume Laterality Blood (Blood, 12/20/2021 11:34 12/20/2021 6:27 Venous) AM STORE OPERATIONS SPECIALIST PM STORE OPERATIONS SPECIALIST Cheikh Gautam M.D. LAB MICROBIOLOGY - BLOOD ORD ERABLES Performing Organization Address City/State/ZIP Code Phon e Number [facility]- [address] [place] [address] [phone] [place] [address] HIV-1/-2 Ag and Ab Scrn, Plasma (12/20/2021 11:34 AM STORE OPERATIONS SPECIALIST) P athologist Signature HIV Ag/Ab Negative Negative 12/21/2021 [facility] Scrn, 11:40 AM STORE OPERATIONS SPECIALIST P Comment: Negative result does not rule out HIV in fection. If exposure to HIV infection occurred <14 d ays ago, contact the laboratory to request additi on of HIV-1 RNA detection / quantification test. HIV-1 p24 Ag Scrn, P Negative Negative 12/21/2021 11:40 AM STORE OPERATIONS SPECIALIST CA Comment: Negative result does not rule out HIV in fection. If exposure to HIV infection occurred <14 d ays ago, contact the laboratory to request additi on of HIV-1 RNA detection / quantification test. HIV-1 Ab Scrn, P Negative Negative 12/21/2021 11: 40 AM STORE OPERATIONS SPECIALIST CA Comment: Negative result does not rule out HIV in fection. If exposure to HIV infection occurred <14 d ays ago, contact the laboratory to request additi on of HIV-1 RNA detection / quantification test. HIV-2 Ab Scrn, P Negative Negative 12/21/2021 11: 40 AM STORE OPERATIONS SPECIALIST [facility] Comment: Negative result does not rule out HIV in fection. If exposure to HIV infection occurred <14 d ays ago, contact the laboratory to request additi on of HIV-1 RNA detection / quantification test. Specimen Anatomical Collection Method Collection Time Receive d Time (Source) Location / / Volume Laterality Blood (Blood, 12/20/2021 11:34 12/20/2021 6:27 Venous) AM STORE OPERATIONS SPECIALIST PM STORE OPERATIONS SPECIALIST Cheikh Gautam M.D. LAB MICROBIOLOGY - BLOOD ORD ERAKAMALJIT Performing Organization Address City/State/ZIP Code Phon e Number [facility]- [address] [place] [address], [place] [phone] [place] [address] System in [place] HBs Antigen , Serum (12/20/2021 11:34 AM STORE OPERATIONS SPECIALIST) [facility] Method Time Signature HBs Antigen Non reactive Non reactive 12/20/2021 [facility] , S 4:50 PM STORE OPERATIONS SPECIALIST Specimen Anatomical Collection Method Collection Time Receive d Time (Source) Location / / Volume Laterality Blood (Blood, 12/20/2021 11:34 12/20/2021 3:49 Venous) AM STORE OPERATIONS SPECIALIST PM STORE OPERATIONS SPECIALIST Cheikh Gautam M.D. LAB MICROBIOLOGY - BLOOD ORD ERAKAMALJIT Performing Organization Address City/State/ZIP Code Phon e Number [facility]- [address] [place] [address] [place] [facility] [place], [place] [id number] [place] [address] (ABNORMAL) CBC without Differential (12/20/2021 11:34 AM STORE OPERATIONS SPECIALIST) [facility] Method Time Signature Hemoglobin 14.1 11.6 - 12/20/2021 [facility] 15.0 g/dL 11:44 AM STORE OPERATIONS SPECIALIST Hematocrit 41.0 35.5 - 12/20/2021 [facility] 44.9 % 11:44 AM STORE OPERATIONS SPECIALIST Erythrocytes 4.91 3.92 - 12/20/2021 [facility] 5.13 11:44 AM STORE OPERATIONS SPECIALIST x10(12)/L MCV 83.5 78.2 - 12/20/2021 [facility] 97.9 fL 11:44 AM STORE OPERATIONS SPECIALIST RBC Distrib Width 11.7 (L) 12.2 - 12/20/2021 [facility] 16.1 % 11:44 AM STORE OPERATIONS SPECIALIST Platelet Count 360 157 - 371 12/20/2021 [facility] x10(9)/L 11:44 AM STORE OPERATIONS SPECIALIST Leukocytes 11.1 (H) 3.4 - 9.6 12/20/2021 [facility] x10(9)/L 11:44 AM STORE OPERATIONS SPECIALIST Specimen Anatomical Collection Method Collection Time Receive d Time (Source) Location / / Volume Laterality Blood (Blood, 12/20/2021 11:34 12/20/2021 Venous) AM STORE OPERATIONS SPECIALIST 11:40 AM STORE OPERATIONS SPECIALIST Cheikh Gautam M.D. LAB BLOOD ADD-ON Performing Organization Address City/State/ZIP Code Phon e Number [facility]- [address] [place] [place] [address] [place] [address] System in [place] [address] Antibody Screen, RBC (with reflex Antibody ID) (12/20/2021 11:34 AM STORE OPERATIONS SPECIALIST) P athologist Signature Antibody Screen NEG 12/20/2021 [facility] 5:16 PM STORE OPERATIONS SPECIALIST Specimen Anatomical Collection Method Collection Time Receive d Time (Source) Location / / Volume Laterality Blood (Blood, 12/20/2021 11:34 12/20/2021 3:49 Venous) AM STORE OPERATIONS SPECIALIST PM STORE OPERATIONS SPECIALIST Cheikh Gautam M.D. LAB BLOOD BANK TEST ORDERABL ES Performing Organization Address City/[facility]/ZIP Code Phon e Number [facility]- [address] [place] [address] [facility] - [address] ABORh, RBC (12/20/2021 11:34 AM STORE OPERATIONS SPECIALIST) P athologist Signature ABO Group O 12/20/2021 5:16 [facility] PM STORE OPERATIONS SPECIALIST Rh Type POS 12/20/2021 5:16 [facility] PM STORE OPERATIONS SPECIALIST Specimen Anatomical Collection Method Collection Time Receive d Time (Source) Location / / Volume Laterality Blood (Blood, 12/20/2021 11:34 12/20/2021 3:51 Venous) AM STORE OPERATIONS SPECIALIST PM STORE OPERATIONS SPECIALIST Cheikh Gautam M.D. LAB BLOOD BANK TEST ORDERABL ES Performing Organization Address City/State/ZIP Code Phon e Number [facility]- [address] [place] [address] [facility] - [address] Bacterial Culture, Aerobic + Susc, Urine (12/20/2021 11:26 AM STORE OPERATIONS SPECIALIST) [facility] Method Time Signature Urine Culture No growth 12/21/2021 [facility] after 1 day 8:40 AM STORE OPERATIONS SPECIALIST of incubation. Specimen Anatomical Collection Method Collection Time Receive d Time (Source) Location / / Volume Laterality Urine (Urine, 12/20/2021 11:26 12/20/2021 2:19 Midstream) AM STORE OPERATIONS SPECIALIST PM STORE OPERATIONS SPECIALIST Comment: Specimen Source Site: Urine Cheikh Gautam M.D. LAB MICROBIOLOGY - GENERAL O RDERABLES Performing Organization Address City/State/ZIP Code Phon e Number [facility]- [address] [place] [id number] [place] [address] [place] [address] System in [address] Urinalysis with Microscopic if Indicated (12/20/2021 11:26 AM STORE OPERATIONS SPECIALIST) P athologist Signature Source Urine, 12/20/2021 [facility] Urine, Clean 12:12 PM STORE OPERATIONS SPECIALIST Catch Clarity Clear Clear 12/20/2021 [facility] 12:12 PM STORE OPERATIONS SPECIALIST Color Yellow 12/20/2021 [facility] 12:12 PM STORE OPERATIONS SPECIALIST Comment: ----REFERENCE VALUE---- Colorless Yellow Ronda Blood Negative Negative 12/20/2021 12:12 PM STORE OPERATIONS SPECIALIST [facility] Nitrite Negative Negative 12/20/2021 12:12 PM STORE OPERATIONS SPECIALIST [facility] Leukocyte Esterase Negative Negative 12/20/2021 12:[address] [facility] Protein Negative mg/dL 12/20/2021 12:12 PM STORE OPERATIONS SPECIALIST [facility] Comment: ----REFERENCE VALUE---- Negative Trace Glucose Negative Negative mg/dL 12/20/2021 12:12 PM STORE OPERATIONS SPECIALIST O FRANSICO Ketone Negative Negative mg/dL 12/20/2021 12:12 PM STORE OPERATIONS SPECIALIST O FRANSICO Bilirubin Negative Negative 12/20/2021 12:12 PM STORE OPERATIONS SPECIALIST [facility] pH 6.0 5.0 - 8.0 12/20/2021 12:12 PM STORE OPERATIONS SPECIALIST [facility] Specific Hawley 1.005 1.001 - 1.035 12/20/2021 12:12 PM STORE OPERATIONS SPECIALIST [facility] Urobilinogen 0.2 0.2 - 1.0 mg/dL 12/20/2021 12:[address] [facility] Specimen Anatomical Collection Method Collection Time Receive d Time (Source) Location / / Volume Laterality Urine (Urine, 12/20/2021 11:26 12/20/2021 Clean Catch) AM STORE OPERATIONS SPECIALIST 12:06 PM STORE OPERATIONS SPECIALIST Cheikh Gautam M.D. LAB URINE ORDERABLES Performing Organization Address City/State/ZIP Code Phon e Number [facility]- [address] [place] [address] [place] [address] System in [place] [address] documented in this encounter Visit Diagnoses Diagnosis Encounter For Supervision Of Other Stella l Unspecified Trimester (HCC) - Primary Examination Test With Positive Result (HCC) documented in this encounter Care Teams Goodwill Ambassador Relationship Specialty Start Date End Date Ben Arce M.D. PCP - General Family Medicine 01/13/[address] [place] [address] documented as of this encounter
--- OUTSIDE RECORDS SUMMARY | 2022-06-22 14:01 | XMS_ITS | Encounter Summary ---
:1990 Author Organization [facility] Address [address] [place] [address] Care Team Providers Name Role Phone Ben Arce M.D. Primary Care Provider Reason for Visit Reason Comments Vomiting Pt presents with nausea and vomiting that began last evening at 1700. Has persisted all night. Pt is 6 weeks . Encounter Details Date Type Department Care Team Description 12/09/2021 Emergency [facility] Valerie Malone, Nause a And Vomiting (Primary Dx); Department M.D. Less Than 8 Weeks [address]estation [address] [place] [phone] Social History Tobacco Use Types Packs/Day Years [...] do you attend tenriism or Never 2021 scientologist services? Do you [...] at Date Recorded Female 12/02/2021 5:19 PM TRAFFIC OR SYSTEM DISPATCHER documented as of this encounter Last Filed Vital Signs Vital Sign Reading Time Taken Comments Blood Pressure 126/87 12/09/2021 9:45 AM TRAFFIC OR SYSTEM DISPATCHER Pulse 95 12/09/2021 10:00 AM TRAFFIC OR SYSTEM DISPATCHER Temperature 37.2 ??C (99 ??F) 12/09/2021 10:00 AM TRAFFIC OR SYSTEM DISPATCHER Respiratory Rate 14 12/09/2021 8:29 AM TRAFFIC OR SYSTEM DISPATCHER Oxygen Saturation 99% 12/09/2021 10:00 AM TRAFFIC OR SYSTEM DISPATCHER Inhaled Oxygen Concentration - - Weight 68.3 kg (150 lb 9.2 oz) 12/09/2021 8:31 AM TRAFFIC OR SYSTEM DISPATCHER Height 155 cm (5' 1.02) 12/09/2021 8:31 AM TRAFFIC OR SYSTEM DISPATCHER Body Mass Index 28.43 12/09/2021 8:31 AM TRAFFIC OR SYSTEM DISPATCHER documented in this encounter Discharge Instructions Discharge InstructionsValerie Malone M.D. - 12/09/2021 9:29 AM CST If you are unable to keep yourself well hydrated at home, please feel free to return. FIC OR SYSTEM DISPATCHER AttachmentsThe following attachments cannot be sent through Care Everywhere. Morning Sickness (Thai)documented in this encounter Medications at Time of [...] normal. ASSESSMENT/PLAN IMPRESSION AND PLAN Vomiting with bkiu-ii-kbeqzsgm dehydration during . I gave normal saline 1 L IV, [id number] mg IV, Zofran 4 mg IV. She [...] 8 Weeks Gestation Valerie Malone M.D. 12/09/21934 FIC OR SYSTEM DISPATCHER documented in this encounter Plan of Treatment [...] 1,000 mL New Bag 12/09/2021 8:48 AM TRAFFIC OR SYSTEM DISPATCHER 1,000 mL 1000 mL/hr 1,000 mL, intravenous, at 1,000 mL/hr, Administer over 1 Hours, Once, On Sun12/09/21 at 0836, For 1 dose ondansetron (PF) injection 4 mg (ZOFRAN) Given 12/09/2021 9:31 AM TRAFFIC OR SYSTEM DISPATCHER 4 mg 4 mg, intravenous, Once, On Sun12/09/21 at 0921, For 1 dose pyridoxine (vitamin B6) injection 100 mg Given 12/09/2021 9:00 AM TRAFFIC OR SYSTEM DISPATCHER 100 mg 100 mg, intravenous, Once, On Sun12/09/21 at 0836, For 1 dose sodium chloride 0.9 % injection 10 mL Given 12/09/2021 8:45 AM TRAFFIC OR SYSTEM DISPATCHER 10 mL 10 mL, intravenous, As needed, [...] Recently Administered Medications Times are shown in TRAFFIC OR SYSTEM DISPATCHER. Scheduled Medication Order 12/07/2021 12/08/2021 12/09/2021 NaCl [...] injection documented in this encounter Care Teams Trailer Rental Clerk Relationship Specialty Start Date End Date Ben Arce M.D. PCP - General Family Medicine 01/13/[address] [place] [phone] documented as of this encounter
--- OUTSIDE RECORDS SUMMARY | 2022-06-22 14:01 | XMS_ITS | Encounter Summary ---
:1990 Author Organization [facility] Address [address] [place] [address] Care Team Providers Name Role Phone Ben Arce M.D. Primary Care Provider Reason for Visit Reason Comments Sinusitis Sinus pressure / sinus drain age/ sinus congestion x 6 weeks Encounter Details Date Type Department Care Team Description 11/08/2021 [facility] [place]) [place], [facility], [facility] [address] [facility] [address] [place] [phone] Social History Tobacco Use Types Packs/Day Years [...] do you attend judaism or Never 2021 pentecostal services? Do you [...] at Date Recorded Female 12/02/2021 5:19 PM RETAIL FIELD SUPERVISOR documented as of this encounter Last Filed Vital Signs Vital Sign Reading Time Taken Comments Blood Pressure 126/78 11/08/2021 12:40 PM RETAIL FIELD SUPERVISOR Pulse 78 11/08/2021 12:40 PM RETAIL FIELD SUPERVISOR Temperature 37 ??C (98.6 ??F) 11/08/2021 12:40 PM RETAIL FIELD SUPERVISOR Respiratory Rate 16 11/08/2021 12:40 PM RETAIL FIELD SUPERVISOR Oxygen Saturation 98% 11/08/2021 12:40 PM RETAIL FIELD SUPERVISOR Inhaled Oxygen Concentration - - Weight 72.1 kg (158 lb 14.4 oz) 11/08/2021 12:40 PM RETAIL FIELD SUPERVISOR Height 155 cm (5' 1.02) 11/08/2021 12:40 PM RETAIL FIELD SUPERVISOR Body Mass Index 30 11/08/2021 12:40 PM RETAIL FIELD SUPERVISOR documented in this encounter Patient Instructions Patient InstructionsArely Ferrell APRN, C.N.P. - 11/08/2021 12:30 PM RETAIL FIELD SUPERVISOR Steam, frequent showers to break up mucus in back of throat. Follow up if not gradually improving over the next 7-10 days or sooner if symptoms would worsen. [place] FIELD SUPERVISOR AttachmentsThe following attachments cannot be sent through Care Everywhere. Sinusitis (Rhinosinusitis) (Lithuanian)documented in this encounter Progress Notes Arely Ferrell [...] discussed and reviewed in AVS. Discharged from [facility] in stable condition. I personally spent 20 minutes in total care of the patient today. IL FIELD SUPERVISOR documented in this encounter Plan of Treatment Not on filedocumented as of this encounter Visit Diagnoses Diagnosis Sinusitis - Primary documented in this encounter Care Teams Family Support Worker Relationship Specialty Start Date End Date Ben Arce M.D. PCP - General Family Medicine 01/13/[address] [place] [address] documented as of this encounter
--- OUTSIDE RECORDS SUMMARY | 2022-06-22 14:01 | XMS_ITS | Encounter Summary ---
:1990 Author Organization [facility] Address [address] [place] [address] Care Team Providers Name Role Phone Ben Arce M.D. Primary Care Provider Reason for Visit Reason Comments Med Refill Encounter Details Date Type Department Care Team Description 05/23/2021 Refill Department of Family Medicine Ben Maynard M.D. Med Refill in [facility] [address] [place] [phone] (Wo rk) Social History Tobacco Use Types [...] do you attend spiritism or Never 2021 pentecostal services? Do you [...] at Date Recorded Female 12/02/2021 5:19 PM ELIGIBILITY WORKER documented as of this encounter Miscellaneous Notes Telephone Encounter - Rylie Le RMaribellMKalpesh - 05/23/2021 1:08 PM CDT Medication Name: cetirizine Last Office Visit: 05/18/21 Future Office Visit: none Last Blood Pressure: (87064) 05/18/21 Last Set of Labs: 01/13/21 Patient is restricted to Dr. Ritter for all refills documented in this encounter Plan of Treatment Not on filedocumented as of this encounter Visit Diagnoses Diagnosis Rhinitis Allergic documented in this encounter Care Teams Home Assessment Nurse Relationship Specialty Start Date End Date Ben Arce M.D. PCP - General Family Medicine 01/13/[address] [place] [address] documented as of this encounter
--- OUTSIDE RECORDS SUMMARY | 2022-06-22 14:01 | XMS_ITS | Encounter Summary ---
:1990 Author Organization [facility] Address [address] [place] [address] Care Team Providers Name Role Phone Ben Arce M.D. Primary Care Provider Encounter Details Date Type Department Care Team Description 11/24/2021 Orders Only Department of Robert, Erika Hammer, Abnormal L aboratory Obstetrics and TELEVISION PICTURE TUBE REBUILDER, C.N.P., Results (Samina pendleton Dx) Gynecology in [place], [place] [address] [place] [phone] Social History Tobacco Use Types Packs/Day Years [...] do you attend mormon or Never 2021 baptist services? Do you [...] at Date Recorded Female 12/02/2021 5:19 PM HELICOPTER SPECIALIST documented as of this encounter Plan of Treatment Not on filedocumented as of this encounter Results (ABNORMAL) hCG (Human Chorionic Gonadotropin), Quantitative, (11/28/2021 4:00 PM HELICOPTER SPECIALIST) P athologist Signature HCG, 94 (H) <5 IU/L 11/28/2021 NPRG Quantitative, 7:47 PM HELICOPTER SPECIALIST , P Comment: Biotin has been identified [...] 11/28/2021 4:00 PM 11/28/19 22 6:56 Venous) HELICOPTER SPECIALIST PM HELICOPTER SPECIALIST Erika Jones APRN, C.N.P., M.S.N. LAB BLOOD ADD-ON Performing Organization Address City/State/ZIP Code Phon e Number [facility]- [address] [place], [place] [address] [place] [address] [place] [address] [facility] [address] [place] documented in this encounter Visit Diagnoses Diagnosis Abnormal Laboratory Results - Primary documented in this encounter Care Teams Carnival Worker Relationship Specialty Start Date End Date Ben Arce M.D. PCP - General Family Medicine 01/13/[address] [place] [phone] documented as of this encounter
--- OUTSIDE RECORDS SUMMARY | 2022-06-22 14:01 | XMS_ITS | Encounter Summary ---
:1990 Author Organization [facility] Address [address] [place] [address] Care Team Providers Name Role Phone Ben Arce M.D. Primary Care Provider Encounter Details Date Type Department Care Team Description 05/18/2021 Hospital Encounter Department of Alexander Rendon, Pain Hand Right Radiology, [facility], in [place] [address] [place], [place] [address] [address] [place], [place] [phone] (Work) [phone] Social History Tobacco Use Types Packs/Day Years [...] you attend latter day or Never 2021 uatsdin services? Do you [...] at Date Recorded Female 12/02/2021 5:19 PM SILVER LAP MACHINE TENDER documented as of this encounter Medications [...] Right documented in this encounter Care Teams Java Analyst Relationship Specialty Start Date End Date Ben Arce M.D. PCP - General Family Medicine 01/13/[address] [place] [phone] documented as of this encounter
--- OUTSIDE RECORDS SUMMARY | 2022-06-22 14:01 | XMS_ITS | Encounter Summary ---
:1990 Author Organization [facility] Address [address] [place] [address] Care Team Providers Name Role Phone Ben Arce M.D. Primary Care Provider Reason for Visit Reason Comments Nausea OTHER Breast pain Vomiting Positive at home test X 4 Encounter Details Date Type Department Care Team Description 11/24/2021 Comprehensive Visit Department of Grant Jones ncsharyn Test (Primary Dx); Obstetrics and J, FERRULER, Counseling Bi rth Control; Gynecology in [facility] C.N.P., M.S.N. Pap Smear Examination [place], [place] [address] [place] [phone] Social History Tobacco Use Types Packs/Day Years [...] do you attend episcopalian or Never 2021 roman catholic services? Do [...] at Date Recorded Female 12/02/2021 5:19 PM ELECTROTHERAPIST documented as of this encounter Last Filed Vital Signs Vital Sign Reading Time Taken Comments Blood Pressure 166/67 11/24/2021 1:50 PM ELECTROTHERAPIST Pulse 118 11/24/2021 1:49 PM ELECTROTHERAPIST Temperature 37.2 ??C (99 ??F) 11/24/2021 1:49 PM ELECTROTHERAPIST Respiratory Rate - - Oxygen Saturation - - Inhaled Oxygen Concentration - - Weight 71.6 kg (157 lb 12.8 oz) 11/24/2021 1:49 PM ELECTROTHERAPIST Height - - Body Mass Index 29.79 11/08/2021 12:40 PM ELECTROTHERAPIST documented in this encounter Progress Notes Grant [...] STD testing. Grant Jones APRN, Reji.NDany, M.S.N. TROTHERAPIST documented in this encounter Miscellaneous Notes Addendum Note - Grant Jones APRN, Reji.N.P., M.S.N. - 11/24/2021 1:15 PM ELECTROTHERAPIST Addended by: GRANT JONES on: 11/29/2021 08:00 AM Modules accepted: Orders TROTHERAPIST documented in this encounter Plan of Treatment Not on filedocumented as of this encounter Procedures Procedure Name Priority Date/Time Associated Diagnosis Comme nts THINPREP W/HPV Routine 11/24/2021 4:49 PM Pap Smear Results for this CO-TEST SCREEN ELECTROTHERAPIST Examination procedure are in the results section. HUMAN CHORIONIC Routine 11/24/2021 2:00 PM Test Resu lts for this GONADOTROPIN (HCG), ELECTROTHERAPIST procedur e are in ROBERTA, the results section. HPV WITH GENOTYPING, Routine 11/24/2021 1:53 PM R esults for this PCR, THINPREP ELECTROTHERAPIST procedure are in the results section. TEST, POCT, Routine 11/24/2021 1:14 PM Samira t Results for this U (LAB) ELECTROTHERAPIST procedure are i n the results section. documented in this encounter Results ThinPrep w/HPV Co-Test Screen (11/24/2021 4:49 PM ELECTROTHERAPIST) Component Value Ref Test Analysis Performed Pathologis t Range Method Time At Signature 11/28/2021 HK 3:47 PM ELECTROTHERAPIST Report DEBRA Boles(ASCP) 11/28/2021 HK electronically 3:47 PM signed by ELECTROTHERAPIST I verify that I have examined all relevant slides/materials for the specimen(s) and rendered or confirmed the diagnosis. Gross Description Received specimen 11/28/2021 HK Y in a ThinPrep 3:47 PM vial. ELECTROTHERAPIST Pap Test Source Cervical/Endocervi 11/28/2021 HKCY lizbeth 3:47 PM ELECTROTHERAPIST Interpretation Cervical/Endocervical ??(ThinPrep): 11/28/2021 HKCY 3:47 PM Satisfactory for Evaluation ELECTROTHERAPIST Negative for Intraepithelial Lesion or Malignancy Shift [...] Laterality Varies 11/24/2021 4:49 PM 6:36 (Cervix/Endocerv ELECTROTHERAPIST AM ELECTROTHERAPIST ix) Narrative This result has an attachment that is no t available. Reji Polanco APRN.N.P., M.S.N. LAB PAP PATHDX ORD ERABLES Performing Organization Address City/State/ZIP Code Phon e Number [facility]- [address] [place] [address] [facility] [place] [address] [facility] [address] [facility] (ABNORMAL) hCG (Human Chorionic Gonadotropin), Quantitative, (11/24/2021 2:00 PM ELECTROTHERAPIST) athologist Signature HCG, 6.9 (H) <5 IU/L 11/24/2021 NPRG Quantitative, 2:22 PM ELECTROTHERAPIST , P Comment: Biotin has been identified by the meir toro as a potential interfering substance. ??Higher concentr ations of biotin may be found in multivitamins, hair/nail supple ments, and workout supplements. ??If the result does not [facility] clinical observations, repeat testing after patient refrains fr om the use of supplements for at least 12 hours. Specimen Anatomical Collection Method Collection Time Receive d Time (Source) Location / / Volume Laterality Blood (Blood, 11/24/2021 2:00 PM 11/24/19 2:01 Venous) ELECTROTHERAPIST PM ELECTROTHERAPIST Grant Jones APRN, C.N.P., M.S.N. LAB BLOOD ADD-ON Performing Organization Address City/State/ZIP Code Phon e Number [facility]- [address] [place], [place] [address] [place] [address] [place] [address] [place] [address] [place] HPV with Genotyping, PCR, ThinPrep (11/24/2021 1:53 PM ELECTROTHERAPIST) athologist Signature HPV with Negative Negative 11/25/2021 MKTO Genotyping, 3:27 PM ELECTROTHERAPIST ThinPrep, PCR Comment: Negative for high risk HPV by nucleic ac id amplification. ??The following high risk HPV types were not detected: 16, 18, 31, 33, 35, 39, 45, 51, 52, 56, 58, 59, 66, and 68 Specimen Anatomical Collection Method Collection Time Receive d Time (Source) Location / / Volume Laterality Varies 11/24/2021 1:53 PM 6:36 ELECTROTHERAPIST AM ELECTROTHERAPIST Reji Polanco APRN.N.Anna., M.S.N. LAB MICROBIOLOGY - GENERAL ORDERABLES Performing Organization Address City/[facility]/ZIP Code Phon e Number [facility]- [address] [place] [address] [place] [address] System in [place] [address] [facility] Test, POCT, Urine (lab) (11/24/2021 1:14 PM ELECTROTHERAPIST) P athologist Signature Negative 11/24/2021 NPRG Test, POCT, U 1:21 PM ELECTROTHERAPIST Specimen Anatomical Collection Method Collection Time Receive d Time (Source) Location / / Volume Laterality Urine (Urine, 11/24/2021 1:14 PM 11/24/19 1:14 Clean Catch) ELECTROTHERAPIST PM ELECTROTHERAPIST Grant Jones APRN, C.N.P., M.S.N. LAB POCT ORDERABLE S - DEVICE Performing Organization Address City/[facility]/ZIP Code Phon e Number [facility]- [address] [place] [address] [place] [address] LAB NPRG [facility] [place] [address] documented in this encounter Visit Diagnoses Diagnosis Test - Primary Counseling Control Pap Smear Examination documented in this encounter Care Teams Event Sales Representative Relationship Specialty Start Date End Date Ben Arce M.D. PCP - General Family Medicine 01/13/[address] [place] [phone] documented as of this encounter
--- OUTSIDE RECORDS SUMMARY | 2022-06-22 14:01 | XMS_ITS | Encounter Summary ---
:1990 Author Organization [facility] Address [address] [place] [address] Care Team Providers Name Role Phone Ben Arce M.D. Primary Care Provider Reason for Visit Reason Comments Med Refill Encounter Details Date Type Department Care Team Description 11/24/2021 Refill Department of Family Medicine Ben Maynard M.D. Med Refill in [facility] [address] [place] [phone] (Wo rk) Social History Tobacco Use Types [...] do you attend baptism or Never 2021 rastafari services? Do you [...] at Date Recorded Female 12/02/2021 5:19 PM HVAC SALES REPRESENTATIVE documented as of this encounter Plan of Treatment Not on filedocumented as of this encounter Visit Diagnoses Not on filedocumented in this encounter Care Teams Test Engineering Intern Relationship Specialty Start Date End Date Ben Arce M.D. PCP - General Family Medicine 01/13/[address] [place] [address] documented as of this encounter
--- OUTSIDE RECORDS SUMMARY | 2022-06-22 14:01 | XMS_ITS | Encounter Summary ---
:1990 Author Organization [facility] Address [address] [place] [address] Care Team Providers Name Role Phone Ben Arce M.D. Primary Care Provider Encounter Details Date Type Department Care Team Description 11/28/2021 Hospital Encounter Department of Erika Jones Laboratory Laboratory Medicine CJ HammerN, Results in [place], C.N.PMaribell, M.S.N. [place] [address] [place] [phone] Social History Tobacco Use Types Packs/Day Years [...] do you attend taoist or Never 2021 presybeterian services? Do you [...] at Date Recorded Female 12/02/2021 5:19 PM CHIP MIXING MACHINE OPERATOR documented as of this encounter [...] Abnormal Laboratory Results for this GONADOTROPIN (HCG), CHIP MIXING MACHINE OPERATOR Results procedur e are in ROBERTA, the results section. documented in this encounter Results (ABNORMAL) hCG (Human Chorionic Gonadotropin), Quantitative, (11/28/2021 4:00 PM CHIP MIXING MACHINE OPERATOR) P athologist Signature HCG, 94 (H) <5 IU/L 11/28/2021 NPRG Quantitative, 7:47 PM CHIP MIXING MACHINE OPERATOR , P Comment: Biotin has [...] (Blood, 11/28/2021 4:00 PM 11/28/19 6:56 Venous) CHIP MIXING MACHINE OPERATOR PM CHIP MIXING MACHINE OPERATOR Erika Jones APRN, C.N.P., M.S.N. LAB BLOOD ADD-ON Performing Organization Address City/State/ZIP Code Phon e Number [facility]- [address] [place], [place] [address] [place] [address] [place] [address] [address] [facility] documented in this encounter Visit Diagnoses Diagnosis Abnormal Laboratory Results documented in this encounter Care Teams Automotive Production Worker Relationship Specialty Start Date End Date Ben Arce M.D. PCP - General Family Medicine 01/13/[address] [place] [phone] documented as of this encounter
--- OUTSIDE RECORDS SUMMARY | 2022-06-22 14:01 | XMS_ITS | Encounter Summary ---
:1990 Author Organization [facility] Address [address] [place] [address] Care Team Providers Name Role Phone Ben Arce M.D. Primary Care Provider Reason for Referral Outpatient (Routine) - Authorized Specialty Diagnoses / Procedures Referred By Contact Refer red To Contact Diagnoses Subdermal Implantable Contraceptive Removal Rylie Mcdowell M.D. [facility] Procedures Subdermal Contraceptive Device [facility] [place] [address] Referral ID Status Reason Start Date Expiration Date Visits V isits Requested Authorized [id number] Authorized 12/01/2021 12/01/2022 1 1 EL REAMER Reason for Visit Reason Comments nexplanon removal Early . LMP 10/29/21. Pt will see Dr. Swenson in [place] with [facility] for . Appointment Request (Routine) - Closed Specialty Diagnoses / Procedures Referred By Contact Refer red To Contact Obstetrics and Gynecology Referral ID Status Reason Start Date Expiration Date Visits Requ ested Visits Authorized [id number] Closed 11/29/2021 11/29/2022 1 1 Encounter Details Date Type Department Care Team Description 12/01/2021 Office Visit Department of Rylie Mcdowell Subdermal Imp lancesar Obstetrics and Minoo Contraceptive Removal Gynecology in [address] (Primary Dx) [place], [place] [address] [facility] [address] [place], [place] [phone] [address] (Work) [phone] Social History Tobacco Use Types Packs/Day Years [...] do you attend restorationist or Never 2021 jewish services? Do you [...] at Date Recorded Female 12/02/2021 5:19 PM BARREL REAMER documented as of this encounter Last Filed Vital Signs Vital Sign Reading Time Taken Comments Blood Pressure 155/91 12/01/2021 2:56 PM BARREL REAMER Pulse 84 12/01/2021 2:56 PM BARREL REAMER Temperature 36.2 ??C (97.2 ??F) 12/01/2021 2:56 PM BARREL REAMER Respiratory Rate - - Oxygen Saturation - - Inhaled Oxygen Concentration - - Weight 69.5 kg (153 lb 4.8 oz) 12/01/2021 2:56 PM BARREL REAMER Height - - Body Mass Index 28.94 11/08/2021 12:40 PM BARREL REAMER documented in this encounter Progress Notes Rylie Mcdowell M.D. - 12/01/2021 3:15 PM CST SUBJECTIVE CHIEF COMPLAINT / REASON FOR VISIT Chief Complaint Patient presents with ??? nexplanon removal Early . LMP 10/29/21. Pt will see Dr. Swenson in [place] with [facility] for . HISTORY OF PRESENT CONDITION [...] levels - plan US once HCG above 5460-1000 - Patient is following up at [facility] Diet and exercise, PNV and folate, smoking [...] are no discontinued medications. Rylie Mcdowell M.D. EL REAMER documented in this encounter Procedure Notes Rylie [...] lidocaine POST-PROCEDURE DETAILS Complications: no apparent complications RN PROVIDER RELATIONS EL REAMER documented in this encounter Plan of Treatment Not on filedocumented as of this encounter Procedures Procedure Name Priority Date/Time Associated Diagnosis Comme nts MO RMVL DRUG IMPL Routine 12/01/2021 4:11 PM Subdermal Implant able Results for this BARREL REAMER Contraceptive Removal proced ure are in the results section. documented in this encounter Results MO RMVL DRUG IMPL (12/01/2021 4:11 PM BARREL REAMER) Narrative MMODAL - 12/01/2021 4:11 PM BARREL REAMER Rylie Mcdowell M.D. ? 12/01/2021 ??4:12 PM [...] Primary documented in this encounter Care Teams Traffic Control Technician Relationship Specialty Start Date End Date Ben Arce M.D. PCP - General Family Medicine 01/13/[address] [place] [address] documented as of this encounter
--- OUTSIDE RECORDS SUMMARY | 2022-06-22 14:01 | XMS_ITS | Encounter Summary ---
:1990 Author Organization [facility] Address [address] [place] [address] Care Team Providers Name Role Phone Ben rAce M.D. Primary Care Provider Encounter Details Date Type Department Care Team Description 12/20/2021 Silent Schedule Department of Terrence Swenson, Pregnanc y Examination Obstetrics and M.D. Test With Positive Gynecology in [address] [place], [place] [address] [address] [place], [place] [phone] [address] (Work) [phone] Social History Tobacco Use Types Packs/Day Years [...] do you attend moravian or Never 2021 mormonism services? Do you [...] Recorded Female 12/02/2021 5:19 PM DISTRICT SALES COORDINATOR documented as of this encounter Plan of Treatment Not on filedocumented as of this encounter Procedures Procedure Name Priority Date/Time Associated Comments Diagnosis US OB FIRST RAD - Routine 12/20/2021 10:50 Results fo r this TRIMESTER (most inpatients AM DISTRICT SALES COORDINATOR Examination Test procedu re are in and all With Positive the results outpatients) Result section. documented in this encounter Results US OB First Trimester (12/20/2021 10:50 AM DISTRICT SALES COORDINATOR) Anatomical Region Laterality Modality Body, Ultrasound OB RST LOS, Ultrasound ARZ LOS N/A Ultrasound Specimen (Source) Anatomical Collection Method Collection Time Re ceived Time Location / / Volume Laterality 12/20/2021 12:31 PM DISTRICT SALES COORDINATOR Impressions 12/20/2021 12:34 PM DISTRICT SALES COORDINATOR Single, viable, intrauterine gestation w ith CARLOS of August 14, 2022 (not consistent with menstrual dating). Narrative 12/20/2021 12:34 PM DISTRICT SALES COORDINATOR EXAM: US OB FIRST TRIMESTER COMPARISON: None Physician: Dr. Swenson FINDINGS: Gestational age and CARLOS by LMP or OB/EHR assignment: 7 w 3 d, CARLOS: 08/05/2022 INTRAUTERINE Pole: Normal, [place]-Rump Length: 0 .50 cm Gestational Sac: Normal [...] 3 d, CARLOS: 08/05/2022 INTRAUTERINE Pole: Normal, [place]-Rump Length: 0 .50 cm Gestational Sac: Normal [...] documented as of this encounter Care Teams Group Social Worker Relationship Specialty Start Date End Date Ben Arce M.D. PCP - General Family Medicine 01/13/21 [address] [place] [address] documented as of this encounter
--- OUTSIDE RECORDS SUMMARY | 2022-06-22 14:01 | XMS_ITS | Encounter Summary ---
:1990 Author Organization [facility] Address [address] [place] [address] Care Team Providers Name Role Phone Ben Arce M.D. Primary Care Provider Reason for Referral Outpatient (Routine) - Authorized Specialty Diagnoses / Procedures Referred By Contact Refer red To Contact Obstetrics and Cheikh Gautam [facility] Gynecology Minoo Referral ID Status Reason Start Date Expiration Date Visits V isits Requested Authorized [id number] Authorized 12/20/2021 12/20/2022 15 15 Scheduling Instructions Every 4 weeks until 28 week gestation. Then every 2 weeks until 36 week gestati on. Then every 1 week until 40+ week gestati on. ICAL CYTOGENETICS DIRECTOR Reason for Visit Reason Comments Initial Visit 7w 3d Outpatient (Routine) - Closed Specialty Diagnoses / Procedures Referred By Contact Refer red To Contact Obstetrics and Diagnoses Examination Test With Positive Result (HCC) Terrence Swenson M.D. [facility] [address] [place] [address] Referral ID Status Reason Start Date Expiration Date Visits Requ ested Visits Authorized [id number] Closed 12/01/2021 12/01/2022 1 1 Encounter Details Date Type Department Care Team Description 12/20/2021 Initial Department of Obstetrics Col Dain in [place], [place]: 6w1d and Gynecology in M.DMaribell [place], [place] [address] [place] [phone] Social History Tobacco Use Types Packs/Day [...] you attend jehovah's witness or Never 2021 yazidi services? Do you [...] Date Recorded Female 12/02/2021 5:19 PM CLINICAL CYTOGENETICS DIRECTOR documented as of this encounter Last Filed Vital Signs Vital Sign Reading Time Taken Comments Blood Pressure 136/80 12/20/2021 10:52 AM CLINICAL CYTOGENETICS DIRECTOR Pulse - - Temperature - - Respiratory Rate - - Oxygen Saturation - - Inhaled Oxygen Concentration - - Weight 69.2 kg (152 lb 8.9 oz) 12/20/2021 10:52 AM CLINICAL CYTOGENETICS DIRECTOR Height - - Body Mass Index 28.8 12/09/2021 8:31 AM CLINICAL CYTOGENETICS DIRECTOR documented in this encounter Progress Notes Cheikh [...] and Family: Twice a week ??? Attends Confucianism Services: Never ??? Active Member of Clubs [...] Vaccinations: COVID complete but needs booster/Flu declines Windows Migration Technician: Pap NIL w/ neg HPV 11/2021 Aneuploidy screening/Carrier Screening: declines Preeclampsia prevention: aspirin to start at 12 weeks FAS: 28 week labs: TDAP /Rhogam GBS Growth Ultrasounds: surveillance: Presentation (36 weeks): Del planning: PPBC: Problems: 1. Hx preeclampsia: aspirin to start at 12 weeks. Need to get baseline preE labs 2. Hx GDM: Early A1C ordered ICAL CYTOGENETICS DIRECTOR documented in this encounter Plan of [...] US PROCEDURES Hemoglobin A1c (12/20/2021 11:34 AM CLINICAL CYTOGENETICS DIRECTOR) P athologist Signature Hemoglobin A1c, 5.2 4.2 - 5.6 12/20/2021 OWAT B % 12:27 PM CLINICAL CYTOGENETICS DIRECTOR Specimen Anatomical Collection Method Collection Time Receive d Time (Source) Location / / Volume Laterality Blood (Blood, 12/20/2021 11:34 12/20/2021 Venous) AM CLINICAL CYTOGENETICS DIRECTOR 11:40 AM CLINICAL CYTOGENETICS DIRECTOR Cheikh Gautam M.D. LAB BLOOD ADD-ON Performing Organization Address City/State/ZIP Code Phon e Number [facility]- [address] [place] [address] [facility] [place] [address] System in [place] [address] documented in this [...] documented as of this encounter Care Teams Podiatric Medicine Professor Relationship Specialty Start Date End Date Ben Arce M.D. PCP - General Family Medicine 01/13/[address] [place] [address] documented as of this encounter
--- OUTSIDE RECORDS SUMMARY | 2022-06-22 14:01 | XMS_ITS | Encounter Summary ---
:1990 Author Organization [facility] Address [address] [place] [address] Care Team Providers Name Role Phone Ben Arce M.D. Primary Care Provider Reason for Referral Outpatient (Routine) - Closed Specialty Diagnoses / Procedures Referred By Contact Refer red To Contact Obstetrics and Diagnoses Examination Test With Positive Result (HCC) Terrence Swenson M.D. [facility] Gynecology [address] [address] Referral ID Status Reason Start Date Expiration Date Visits Requ ested Visits Authorized [id number] Closed 12/01/2021 12/01/2022 1 1 I O PSYCHOLOGIST Specialty Diagnoses / Procedures Referred By Contact Refer red To Contact Terrence Swenson M.D. [facility] Region [address] [place] [phone] Referral ID Status Reason Start Date Expiration Date Visits Requ ested Visits Authorized I O PSYCHOLOGIST Encounter Details Date Type Department Care Team Description 12/01/2021 Clinical Communication Department of Terrence Swenson Obstetrics and Minoo Gynecology in [address] [place], [place] [address] [place] [phone] [place], [place] [phone] (Work) [phone] Social History Tobacco Use Types Packs/Day Years [...] do you attend protestant or Never 2021 sikh services? Do you [...] at Date Recorded Female 12/02/2021 5:19 PM I O PSYCHOLOGIST documented as of this encounter Miscellaneous Notes Telephone Encounter - Antonella Castandea, R.N. - 12/01/2021 1:35 PM CST Reason [...] following references were used: Nursing Clinical Judgement I O PSYCHOLOGIST Telephone Encounter - Anisa White - 12/01/2021 12:26 PM CST Reason for Communication: Patient calling, had a positive home test and a clinic confirmedtest. LMP unknown. Patient is looking to transfer care from [place] Current Can Nursing/Provider leave a detailed message?: yes Did the patient refuse triage through Nurse line? (for symptom based concerns): Action Needed: Name of Medication (if relevant): Please send all scheduling replies to scheduling pool. I O PSYCHOLOGIST documented in this encounter Plan of Treatment [...] US OB First Trimester (12/20/2021 10:50 AM I O PSYCHOLOGIST) Anatomical Region Laterality Modality Body, Ultrasound OB RST LOS, Ultrasound ARZ LOS N/A Ultrasound Specimen (Source) Anatomical Collection Method Collection Time Re ceived Time Location / / Volume Laterality 12/20/2021 12:31 PM I O PSYCHOLOGIST Impressions 12/20/2021 12:34 PM I O PSYCHOLOGIST Single, viable, intrauterine gestation w ith CARLOS of August 14, 2022 (not consistent with menstrual dating). Narrative 12/20/2021 12:34 PM I O PSYCHOLOGIST EXAM: US OB FIRST TRIMESTER COMPARISON: None Physician: Dr. Swenson FINDINGS: Gestational age and CARLOS by LMP or OB/EHR assignment: 7 w 3 d, CARLOS: 08/05/2022 INTRAUTERINE Pole: Normal, [place]-Rump Length: 0 .50 cm Gestational Sac: Normal [...] 3 d, CARLOS: 08/05/2022 INTRAUTERINE Pole: Normal, [place]-R[place] Length: 0 .50 cm Gestational Sac: Normal [...] (HCC) documented in this encounter Care Teams [place] Consultant Relationship Specialty Start Date End Date Ben Arce M.D. PCP - General Family Medicine 01/13/[address] [place], [place] [address] documented as of this encounter
--- OUTSIDE RECORDS SUMMARY | 2022-06-22 14:01 | XMS_ITS | Encounter Summary ---
:1990 Author Organization [facility] Address [address] [place] [address] Care Team Providers Name Role Phone Ben Arce M.D. Primary Care Provider Encounter Details Date Type Department Care Team Description 12/20/2021 Orders Only Department of Obstetrics and Gau Terrence zamarripa M.D. Gynecology in [address] [address] [place] [address] [phone] Social History Tobacco Use Types Packs/Day Years [...] do you attend faith or Never 2021 congregational services? Do you [...] Date Recorded Female 12/02/2021 5:19 PM STUDENT FINANCIAL SERVICES COUNSELOR documented as of this encounter Plan of Treatment Not on filedocumented as of this encounter Visit Diagnoses Not on filedocumented in this encounter Additional Health Concerns Assessment Noted Time PHQ-9 Depression Total Score: 4 12/20/2021 10:52 AM CS T documented as of this encounter Care Teams Cna Relationship Specialty Start Date End Date Ben Arce M.D. PCP - General Family Medicine 01/13/[address] [place] [phone] documented as of this encounter
--- OUTSIDE RECORDS SUMMARY | 2022-06-22 14:01 | XMS_ITS | Encounter Summary ---
:1990 Author Organization [facility] Address [address] [place] [address] Care Team Providers Name Role Phone Ben Arce M.D. Primary Care Provider Encounter Details Date Type Department Care Team Description 12/20/2021 Hospital Encounter Department of Cheikh Gautam Laboratory Medicine Minoo Garcia Supervis ion Of Other in [facility] Unspecified [address] [place] [address] Social History Tobacco Use Types Packs/Day Years [...] do you attend congregational or Never 2021 taoism services? Do you belong to any clubs [...] at Date Recorded Female 12/02/2021 5:19 PM RECOIL SPRING WINDER documented as of this encounter Medications at [...] Encounter For Results for this , S RECOIL SPRING WINDER Supervision Of Other procedu re are in Normal the results Unspecified section. Trimester HIV-1/-2 AG AND AB Routine 12/20/2021 11:34 AM Encounter For R esults for this SCRN, RECOIL SPRING WINDER Supervision Of Other proce dure are in PLASMA Normal the results Unspecified section. Trimester SYPHILIS TOTAL AB Routine 12/20/2021 11:34 AM Encounter For Re sults for this W/ REFLEX S RECOIL SPRING WINDER Supervision Of Other procedu re are in Normal the results Unspecified section. Trimester HBS ANTIGEN Routine 12/20/2021 11:34 AM Encounter For Results for this , S RECOIL SPRING WINDER Supervision Of Other procedu re are in Normal the results Unspecified section. Trimester ABORH, RBC Routine 12/20/2021 11:34 AM Encounter For Results for this RECOIL SPRING WINDER Supervision Of Other procedu re are in Normal the results Unspecified section. Trimester RUBELLA ANTIBODIES, Routine 12/20/2021 11:34 AM Encounter For Results for this IGG RECOIL SPRING WINDER Supervision Of Other procedu re are in Normal the results Unspecified section. Trimester CBC WITHOUT Routine 12/20/2021 11:34 AM Encounter For Results for this DIFFERENTIAL, B RECOIL SPRING WINDER Supervision Of Other proc edure are in Normal the results Unspecified section. Trimester ANTIBODY SCREEN, B Routine 12/20/2021 11:34 AM Encounter For R esults for this RECOIL SPRING WINDER Supervision Of Other procedu re are in Normal the results Unspecified section. Trimester documented in this encounter Results Hepatitis C Virus Antibody Screen (12/20/2021 11:34 AM RECOIL SPRING WINDER) P athologist Signature HCV Ab Scrn Negative Negative 12/21/2021 [facility] , S 8:10 AM RECOIL SPRING WINDER Comment: Mwdlud-[id number]-[id number] ratio is <1.00 . Specimen Anatomical Collection Method Collection Time Receive d Time (Source) Location / / Volume Laterality Blood (Blood, 12/20/2021 11:34 12/21/2021 6:40 Venous) AM RECOIL SPRING WINDER AM RECOIL SPRING WINDER Chiekh Gautam M.D. LAB MICROBIOLOGY - BLOOD ORD ERABLES Performing Organization Address City/[facility]/ZIP Code Phon e Number [facility] [address] [place] [address] [place] [address] [place] [address] Laboratory Medicine and Pathology [address] [place] Syphilis Total Ab w/ Reflex, Serum (12/20/2021 11:34 AM RECOIL SPRING WINDER) Patholo gist Method Time Signature Syphilis Nonreactive Nonreactive 12/21/2021 [facility] Total Ab w/ 11:40 AM RECOIL SPRING WINDER Reflex Comment: No serologic evidence of infection with T. pallidum (syphilis). ??Repeat testing may be cons idered in patients with suspected acute or primary syphilis in 2-4 weeks. For additional information on interpreta tion of the syphilis reverse algorithm and resul ts, see: [email or web address] df Specimen Anatomical Collection Method Collection Time Receive d Time (Source) Location / / Volume Laterality Blood (Blood, 12/20/2021 11:34 12/20/2021 6:27 Venous) AM RECOIL SPRING WINDER PM RECOIL SPRING WINDER Cheikh Gautam M.D. LAB BLOOD ADD-ON Performing Organization Address City/[facility] Phon e Number [phone] [place] [address] System in [address] Rubella Antibodies, IgG (12/20/2021 11:34 AM RECOIL SPRING WINDER) P athologist Signature Rubella Ab, Positive 12/21/2021 [facility] IgG, S 11:40 AM RECOIL SPRING WINDER Comment: Results suggest response to immunization or prior exposure to the virus. ----REFERENCE VALUE---- Vaccinated: Positive (>=1.0 AI) Unvaccinated: Negative (<=0.7 AI) Rubella IgG Antibody Index 2.6 12/21/2021 11 :40 AM RECOIL SPRING WINDER [facility] Specimen Anatomical Collection Method Collection Time Receive d Time (Source) Location / / Volume Laterality Blood (Blood, 12/20/2021 11:34 12/20/2021 6:27 Venous) AM RECOIL SPRING WINDER PM RECOIL SPRING WINDER Cheikh Gautam M.D. LAB MICROBIOLOGY - BLOOD ORD ERABLES Performing Organization Address City/State/ZIP Code Phon e Number [facility]- [address] [place] [address] [phone] [place] [address] System [address] HIV-1/-2 Ag and Ab Scrn, Plasma (12/20/2021 11:34 AM RECOIL SPRING WINDER) P athologist Signature HIV Ag/Ab Negative Negative 12/21/2021 [facility] Scrn, 11:40 AM RECOIL SPRING WINDER P Comment: Negative result does not rule out HIV in fection. If exposure to HIV infection occurred <14 d ays ago, contact the laboratory to request additi on of HIV-1 RNA detection / quantification test. HIV-1 p24 Ag Scrn, P Negative Negative 12/21/2021 11:40 AM RECOIL SPRING WINDER [facility] Comment: Negative result does not rule out HIV in fection. If exposure to HIV infection occurred <14 d ays ago, contact the laboratory to request additi on of HIV-1 RNA detection / quantification test. HIV-1 Ab Scrn, P Negative Negative 12/21/2021 11: 40 AM RECOIL SPRING WINDER [facility] Comment: Negative result does not rule out HIV in fection. If exposure to HIV infection occurred <14 d ays ago, contact the laboratory to request additi on of HIV-1 RNA detection / quantification test. HIV-2 Ab Scrn, P Negative Negative 12/21/2021 11: 40 AM RECOIL SPRING WINDER [facility] Comment: Negative result does not rule out HIV in fection. If exposure to HIV infection occurred <14 d ays ago, contact the laboratory to request additi on of HIV-1 RNA detection / quantification test. Specimen Anatomical Collection Method Collection Time Receive d Time (Source) Location / / Volume Laterality Blood (Blood, 12/20/2021 11:34 12/20/2021 6:27 Venous) AM RECOIL SPRING WINDER PM RECOIL SPRING WINDER Cheikh Gautam M.D. LAB MICROBIOLOGY - BLOOD ORD ERABLES Performing Organization Address City/State/ZIP Code Phon e Number [facility]- [address] [place] [phone] [place] [address] System [address] HBs Antigen , Serum (12/20/2021 11:34 AM RECOIL SPRING WINDER) [facility] Method Time Signature HBs Antigen Non reactive Non reactive 12/20/2021 [facility] , S 4:50 PM RECOIL SPRING WINDER Specimen Anatomical Collection Method Collection Time Receive d Time (Source) Location / / Volume Laterality Blood (Blood, 12/20/2021 11:34 12/20/2021 3:49 Venous) AM RECOIL SPRING WINDER PM RECOIL SPRING WINDER Cheikh Gautam M.D. LAB MICROBIOLOGY - BLOOD ORD ERABLES Performing Organization Address City/State/ZIP Code Phon e Number [facility]- [address] [place] [address] [facility] [place] [address] [facility] [address] (ABNORMAL) CBC without Differential (12/20/2021 11:34 AM RECOIL SPRING WINDER) [facility] Method Time Signature Hemoglobin 14.1 11.6 - 12/20/2021 [facility] 15.0 g/dL 11:44 AM RECOIL SPRING WINDER Hematocrit 41.0 35.5 - 12/20/2021 [facility] 44.9 % 11:44 AM RECOIL SPRING WINDER Erythrocytes 4.91 3.92 - 12/20/2021 [facility] 5.13 11:44 AM RECOIL SPRING WINDER x10(12)/L MCV 83.5 78.2 - 12/20/2021 [facility] 97.9 fL 11:44 AM RECOIL SPRING WINDER RBC Distrib Width 11.7 (L) 12.2 - 12/20/2021 [facility] 16.1 % 11:44 AM RECOIL SPRING WINDER Platelet Count 360 157 - 371 12/20/2021 [facility] x10(9)/L 11:44 AM RECOIL SPRING WINDER Leukocytes 11.1 (H) 3.4 - 9.6 12/20/2021 [facility] x10(9)/L 11:44 AM RECOIL SPRING WINDER Specimen Anatomical Collection Method Collection Time Receive d Time (Source) Location / / Volume Laterality Blood (Blood, 12/20/2021 11:34 12/20/2021 Venous) AM RECOIL SPRING WINDER 11:40 AM RECOIL SPRING WINDER Cheikh M Dain M.D. LAB BLOOD ADD-ON Performing Organization Address City/[facility]/ZIP Code Phon e Number [facility]- [address] [place] [address] [facility] [place] [address] System in [place] [address] Antibody Screen, RBC (with reflex Antibody ID) (12/20/2021 11:34 AM RECOIL SPRING WINDER) P athologist Signature Antibody Screen NEG 12/20/2021 [facility] 5:16 PM RECOIL SPRING WINDER Specimen Anatomical Collection Method Collection Time Receive d Time (Source) Location / / Volume Laterality Blood (Blood, 12/20/2021 11:34 12/20/2021 3:49 Venous) AM RECOIL SPRING WINDER PM RECOIL SPRING WINDER Cheikh Gautam M.D. LAB BLOOD BANK TEST ORDERABL ES Performing Organization Address City/[facility]/ZIP [facility] Phon e Number [facility]- [address] [place] [address] [facility] [place], [place] [address] [place] [address] [address] [facility] ABORh, RBC (12/20/2021 11:34 AM RECOIL SPRING WINDER) P athologist Signature ABO Group O 12/20/2021 5:16 AUST PM RECOIL SPRING WINDER Rh Type POS 12/20/2021 5:16 AUST PM RECOIL SPRING WINDER Specimen Anatomical Collection Method Collection Time Receive d Time (Source) Location / / Volume Laterality Blood (Blood, 12/20/2021 11:34 12/20/2021 3:51 Venous) AM RECOIL SPRING WINDER PM RECOIL SPRING WINDER Cheikh Gautam M.D. LAB BLOOD BANK TEST ORDERABL ES Performing Organization Address City/[facility]/ZIP [facility] Phon e Number [facility]- [address] [place] [address] [facility] [place], [place] [id number] [place] [address] [address] [facility] documented in this encounter Visit Diagnoses Diagnosis Encounter For Supervision Of Other Stella l Unspecified Trimester (HCC) documented in this encounter Additional Health Concerns Assessment Noted Time PHQ-9 Depression Total Score: 4 12/20/2021 10:52 AM CS T documented as of this encounter Care Teams Information And Referral Director Relationship Specialty Start Date End Date eBn Arce M.D. PCP - General Family Medicine 01/13/[address] [place] [address] documented as of this encounter
--- OUTSIDE RECORDS SUMMARY | 2022-06-22 14:01 | XMS_ITS | Encounter Summary ---
:1990 Author Organization [facility] Address [address] [place] [address] Care Team Providers Name Role Phone Ben Arce M.D. Primary Care Provider Encounter Details Date Type Department Care Team Description 12/20/2021 Hospital Encounter Department of Cheikh Gautam Laboratory Medicine Minoo Garcia Supervis ion Of Other in [facility] Unspecified [address] [place] [address] Social History Tobacco Use Types Packs/Day Years [...] do you attend christian or Never 2021 baptism services? Do you [...] Date Recorded Female 12/02/2021 5:19 PM VOLUNTEER SERVICES SUPERVISOR documented as of this encounter Medications [...] For Resul ts for this AM VOLUNTEER SERVICES SUPERVISOR Supervision Of Other procedu re are in Normal the results Unspecified section. Trimester URINALYSIS WITH Routine 12/20/2021 11:26 Encounter For Results for this MICROSCOPIC IF AM VOLUNTEER SERVICES SUPERVISOR Supervision Of Other proce dure are in INDICATED, U Normal the results Unspecified section. Trimester BACTERIAL CULTURE, Routine 12/20/2021 11:26 Encounter For Resu lts for this AEROBIC + SUSC, AM VOLUNTEER SERVICES SUPERVISOR Supervision Of Other proc edure are in URINE Normal the results Unspecified section. Trimester documented in this encounter Results Hemoglobin A1c (12/20/2021 11:34 AM VOLUNTEER SERVICES SUPERVISOR) P athologist Signature Hemoglobin A1c, 5.2 4.2 - 5.6 12/20/2021 [facility] B % 12:27 PM VOLUNTEER SERVICES SUPERVISOR Specimen Anatomical Collection Method Collection Time Receive d Time (Source) Location / / Volume Laterality Blood (Blood, 12/20/2021 11:34 12/20/2021 Venous) AM VOLUNTEER SERVICES SUPERVISOR 11:40 AM VOLUNTEER SERVICES SUPERVISOR Cheikh Gautam M.D. LAB BLOOD ADD-ON Performing Organization Address City/State/ZIP Code Phon e Number [facility]- [address] [place] [address] [place] [address] System in [place] [address] Bacterial Culture, Aerobic + Susc, Urine (12/20/2021 11:26 AM VOLUNTEER SERVICES SUPERVISOR) Patholo gist Method Time Signature Urine Culture No growth 12/21/2021 [facility] after 1 day 8:40 AM VOLUNTEER SERVICES SUPERVISOR of incubation. Specimen Anatomical Collection Method Collection Time Receive d Time (Source) Location / / Volume Laterality Urine (Urine, 12/20/2021 11:26 12/20/2021 2:19 Midstream) AM VOLUNTEER SERVICES SUPERVISOR PM VOLUNTEER SERVICES SUPERVISOR Comment: Specimen Source Site: Urine Cheikh Gautam M.D. LAB MICROBIOLOGY - GENERAL O RDERABLES Performing Organization Address City/State/ZIP Code Phon e Number [facility]- [address] [place] [address] [place] [address] System in [place] [address] [place] [address] Urinalysis with Microscopic if Indicated (12/20/2021 11:26 AM VOLUNTEER SERVICES SUPERVISOR) P athologist Signature Source Urine, 12/20/2021 [facility] Urine, Clean 12:12 PM VOLUNTEER SERVICES SUPERVISOR Catch Clarity Clear Clear 12/20/2021 [facility] 12:12 PM VOLUNTEER SERVICES SUPERVISOR Color Yellow 12/20/2021 [facility] 12:12 PM VOLUNTEER SERVICES SUPERVISOR Comment: ----REFERENCE VALUE---- Colorless Yellow Ronda Blood Negative Negative 12/20/2021 12:12 PM VOLUNTEER SERVICES SUPERVISOR [facility] Nitrite Negative Negative 12/20/2021 12:12 PM VOLUNTEER SERVICES SUPERVISOR [facility] Leukocyte Esterase Negative Negative 12/20/2021 12:[address] [facility] Protein Negative mg/dL 12/20/2021 12:12 PM VOLUNTEER SERVICES SUPERVISOR [facility] Comment: ----REFERENCE VALUE---- Negative Trace Glucose Negative Negative mg/dL 12/20/2021 12:12 PM VOLUNTEER SERVICES SUPERVISOR O FRANSICO Ketone Negative Negative mg/dL 12/20/2021 12:12 PM VOLUNTEER SERVICES SUPERVISOR O FRANSICO Bilirubin Negative Negative 12/20/2021 12:12 PM VOLUNTEER SERVICES SUPERVISOR [facility] pH 6.0 5.0 - 8.0 12/20/2021 12:12 PM VOLUNTEER SERVICES SUPERVISOR [facility] Specific [place] 1.005 1.001 - 1.035 12/20/2021 12:12 PM VOLUNTEER SERVICES SUPERVISOR [facility] Urobilinogen 0.2 0.2 - 1.0 mg/dL 12/20/2021 12:[address] [facility] Specimen Anatomical Collection Method Collection Time Receive d Time (Source) Location / / Volume Laterality Urine (Urine, 12/20/2021 11:26 12/20/2021 Clean Catch) AM VOLUNTEER SERVICES SUPERVISOR 12:06 PM VOLUNTEER SERVICES SUPERVISOR Cheikh Gautam M.D. LAB URINE ORDERABLES Performing Organization Address City/State/ZIP Code Phon e Number [facility]- [address] [place] [address] [place] [address] System in [place] [address] documented in this encounter Visit Diagnoses Diagnosis Encounter For Supervision Of Other Stella echols Unspecified Trimester (HCC) documented in this encounter Additional Health Concerns Assessment Noted Time PHQ-9 Depression Total Score: 4 12/20/2021 10:52 AM CS T documented as of this encounter Care Teams Store Stocker Relationship Specialty Start Date End Date Ben Arce M.D. PCP - General Family Medicine 01/13/[address] [place] [phone] documented as of this encounter
--- OUTSIDE RECORDS SUMMARY | 2022-06-22 14:02 | XMS_ITS | Encounter Summary ---
:1990 Author Organization [facility] Address [address] [place] [address] Care Team Providers Name Role Phone Elsewhere, Pcp Primary Care Provider Unavailable Reason for Visit Reason Comments Pain In Limb Follow up on left elbow Outpatient (Routine) - Closed Specialty Diagnoses / Procedures Referred By Contact Refer red To Contact Family Medicine Zack Macdonald M.D. [facility] [address] [place] [address] Referral ID Status Reason Start Date Expiration Date Visits Requ ested Visits Authorized [id number] Closed 12/16/2020 12/16/2021 1 1 Encounter Details Date Type Department Care Team Description 12/24/2020 Office Visit Department of Donya Fitzgerald Pain Elbow Left Medicine in [facility], FATOU, C.N.P., (Primary Dx) [place], [place] D.N.P. [address] [place] [phone] Social History Tobacco Use Types Packs/Day Years [...] do you attend hindu or Never 2021 rastafarian services? Do you [...] Date Recorded Female 12/02/2021 5:19 PM SENIOR PROGRAMMER documented as of this encounter Last Filed Vital Signs Vital Sign Reading Time Taken Comments Blood Pressure 128/80 12/24/2020 3:26 PM SENIOR PROGRAMMER Pulse 80 12/24/2020 3:26 PM SENIOR PROGRAMMER Temperature 36.4 ??C (97.5 ??F) 12/24/2020 3:26 PM SENIOR PROGRAMMER Respiratory Rate - - Oxygen Saturation 97% 12/24/2020 3:26 PM SENIOR PROGRAMMER Inhaled Oxygen Concentration - - Weight 72.1 kg (158 lb 15.2 oz) 12/24/2020 3:26 PM SENIOR PROGRAMMER Height - - Body Mass Index 31.21 12/14/2020 5:24 PM SENIOR PROGRAMMER documented in this encounter Progress Notes Donya [...] plan of care. Donya Lind, MIGUELANGEL, DNP OR PROGRAMMER documented in this encounter Plan of Treatment Not on filedocumented as of this encounter Visit Diagnoses Diagnosis Pain Elbow Left - Primary documented in this encounter Care Teams Chef Relationship Specialty Start Date End Date Elsewhere, Pcp PCP - General Family Medicine 01/08/18 01/12/21 documented as of this encounter
--- OUTSIDE RECORDS SUMMARY | 2022-06-22 14:02 | XMS_ITS | Encounter Summary ---
:1990 Author Organization [facility] Address [address] [place] [address] Care Team Providers Name Role Phone Ben Arce M.D. Primary Care Provider Reason for Visit Reason Comments Other swollen and sore throat and fluid in ears right more than the left. was just here on Sunday and saw Donya for her arm Encounter Details Date Type Department Care Team Description 01/13/2021 Office Visit Department of Ben Metzger M.D. Sore Throat (Primary Medicine in [place] [address] Dx) [place], [place] [address] [place] [address] [place], [place] [phone] (Work) [phone] Social History Tobacco Use Types Packs/Day Years [...] do you attend moravian or Never 2021 mosque services? Do you [...] Date Recorded Female 12/02/2021 5:19 PM CLOTH LAYER documented as of this encounter Last Filed [...] Body Mass Index 31.39 12/14/2020 5:24 PM CLOTH LAYER documented in this encounter Progress Ben Espinal [...] Organization Address City/State/ZIP Code Phon e Number [facility]- [address] [place] [address] [place] [address] System in [address] documented in this encounter Visit Diagnoses Diagnosis Sore Throat - Primary documented in this encounter Care Teams Dinkey Engine Operator Relationship Specialty Start Date End Date Ben Arce M.D. PCP - General Family Medicine 01/13/[address] [place] [phone] documented as of this encounter
--- OUTSIDE RECORDS SUMMARY | 2022-06-22 14:02 | XMS_ITS | Encounter Summary ---
:1990 Author Organization [facility] Address [address] [place] [address] Care Team Providers Name Role Phone Elsewhere, Pcp Primary Care Provider Unavailable Reason for Visit Reason Comments Amox Encounter Details Date Type Department Care Team Description 10/05/2020 Clinical Communication Department of Family Aguila Arias M.D. [facility] Medicine in [place] [address] [place], [place] [address] [facility] [address] [place], [place] [phone] (Work) [phone] Social History Tobacco Use Types Packs/Day Years [...] do you attend voodoo or Never 2021 presybeterian services? Do you [...] at Date Recorded Female 12/02/2021 5:19 PM AIRLINE MECHANIC documented as of this encounter Miscellaneous Notes Addendum Note - Aguila Arce M.D. - 10/05/2020 4:11 PM AIRLINE MECHANIC Addended by: AGUILA ARCE on: 10/05/2020 04:11 PM Modules accepted: Orders INE MECHANIC Addendum Note - Dali Bird R.M.A. - 10/05/2020 4:09 PM AIRLINE MECHANIC Addended by: DALI BIRD on: 10/05/2020 04:09 PM Modules accepted: Orders INE MECHANIC Telephone Encounter - Dali Bird R.M.A. - 10/05/2020 4:03 PM AIRLINE MECHANIC Pt's sister is calling on behalf of sister stating that she is restricted to Dr Arce and needs her amox filled. She saw the dentist today, Dr Kelsea Gamino and he prescribed Amox 500 mg. Take 2 tabs STAT and one tab TID till gone #31. INE MECHANIC documented in this encounter Plan of Treatment Not on filedocumented as of this encounter Visit Diagnoses Not on filedocumented in this encounter Care Teams Service Electrician Relationship Specialty Start Date End Date Elsewhere, Pcp PCP - General Family Medicine 01/08/18 01/12/21 documented as of this encounter
--- OUTSIDE RECORDS SUMMARY | 2022-06-22 14:02 | XMS_ITS | Encounter Summary ---
:1990 Author Organization [facility] Address [address] [place] [address] Care Team Providers Name Role Phone Elsewhere, Pcp Primary Care Provider Unavailable Reason for Visit Reason Comments Earache Encounter Details Date Type Department Care Team Description 01/02/2021 Nurse Triage Department of [facility] Angella Herbert, Ear ache Medicine in [place], M.S.N., R.N. [place] [address] [place] [address] Social History Tobacco Use Types Packs/Day [...] do you attend taoist or Never 2021 yarsani services? Do you [...] at Date Recorded Female 12/02/2021 5:19 PM STONE PLANER documented as of this encounter Miscellaneous Notes [...] medication (e.g., ibuprofen or acetaminophen) Protocols used: [id number] Care Advice Patient/Caregiver understands and will follow care advice?: Yes, able to teach back SEE PCP WITHIN 4 HOURS (OR PCP TRIAGE): * IF OFFICE WILL BE OPEN: You need to be seen within the next 3 or 4 hours. Call your doctor (or SWING FRAME GRINDER OPERATOR/PA) now or as soon as the [...] need to be seen. Your doctor (or SWING FRAME GRINDER OPERATOR/PA) will want to talk with you [...] on filedocumented in this encounter Care Teams Penology Teacher Relationship Specialty Start Date End Date Elsewhere, Pcp PCP - General Family Medicine 01/08/18 01/12/21 documented as of this encounter
--- OUTSIDE RECORDS SUMMARY | 2022-06-22 14:02 | XMS_ITS | Encounter Summary ---
:1990 Author Organization [facility] Address [address] [place] [address] Care Team Providers Name Role Phone Ben Arce M.D. Primary Care Provider Reason for Visit Reason Comments Other right hand injury---yesterda y Encounter Details Date Type Department Care Team Description 05/18/2021 Office Visit Department of Alexander Estrella Pain Hand Right (Primary Dx); Medicine in [facility] Contusion Hand Initial Right [place], [place] [address] [place] [phone] Social History Tobacco Use Types Packs/Day Years [...] do you attend rastafari or Never 2021 alevism services? Do you [...] at Date Recorded Female 12/02/2021 5:19 PM THIRD COOK documented as of this encounter Last Filed [...] She had pain limiting her making a nightmute with the thumb and index finger. No [...] Right documented in this encounter Care Teams Street Light Cleaner Relationship Specialty Start Date End Date Ben Arce M.D. PCP - General Family Medicine 01/13/[address] [place] [phone] documented as of this encounter
--- OUTSIDE RECORDS SUMMARY | 2022-06-22 14:02 | XMS_ITS | Encounter Summary ---
:1990 Author Organization [facility] Address [address] [place] [address] Care Team Providers Name Role Phone Ben [...] Type Department Care Team Description 03/01/2021 Emergency [place] Emergency Valerie Malone Contu sion Head Initial (Primary Dx); Department [place] Strain Neck Initial [address] [place] [phone] Social History Tobacco Use Types Packs/Day Years [...] or relatives? How often do you attend yazidi or Never 2021 restorationist services? Do you belong to any clubs or No 11/20/2021 organizations such as yazidi groups, unions, fraternal or athletic groups, or [...] at Date Recorded Female 12/02/2021 5:19 PM PACK WORKER SUPERVISOR documented as of this encounter Last [...] through Care Everywhere. Facial or Scalp Contusion (Tamazight)documented in this encounter Medications at Time of [...] ondansetron ODT disintegrating tablet 4 mg (ZOFRAN-ODT) ([facility] ED) 1101 (Given - Provider: Nita Rao R.N.) 4 mg, oral, Once, On Sun03/01/21 at 1058 , For 1 dose, When splitting ODT at bedside, handle with gloves and a pill splitter to prevent moisture contact. documented in this encounter Care Teams Railroad Track Repair Supervisor Relationship Specialty Start Date End Date Ben Arce M.D. PCP - General Family Medicine 01/13/[address] [place] [phone] documented as of this encounter
--- OUTSIDE RECORDS SUMMARY | 2022-06-22 14:02 | XMS_ITS | Encounter Summary ---
:1990 Author Organization [facility] Address [address] [place] [address] Care Team Providers Name Role Phone Elsewhere, Pcp Primary Care Provider Unavailable Reason for Visit Reason Comments Sinus Symptoms ongoing Encounter Details Date Type Department Care Team Description 07/02/2020 Office Visit Urgent Care, [facility], Sin usitis Acute [place], in [place], FATOU, C.N.P., (Samina pendleton Dx) [place] D.N.P. [address] [place] [phone] Social History Tobacco Use Types Packs/Day Years [...] do you attend sabianism or Never 2021 worship services? Do you [...] Date Recorded Female 12/02/2021 5:19 PM SALES SERVICE EXECUTIVE documented as of this encounter Last Filed [...] bacteria. Still, most people seen in the [facility] for upper respiratory infectionor sinusitis symptoms are [...] and replace them as recommended by the furniture servicer. Note: Having your humidity too high [...] help open sinuses and allow easier breathing. Leyh-apj-gfgmrho treatments* In addition to the previous suggestions, you may get relief for nasal and sinus obstruction or discomfort by taking non-prescription, yhwv-qqa-wyzxnpb (OTC) medications. Many OTC medications combine a [...] 2008 [employer] ([employer]). All rights reserved. [id number] documented in this encounter Progress Notes Esther [...] has been using Flonase nasal spray and pvmj-znj-looznyt decongestant and Tylenol or ibuprofen for symptoms. [...] a humidifier in the room. May use rwxq-juz-mjqsyrx Flonase to help with congestion. Drink warm [...] Primary documented in this encounter Care Teams Corn Cutter Relationship Specialty Start Date End Date Elsewhere, Pcp PCP - General Family Medicine 01/08/18 01/12/21 documented as of this encounter
--- OUTSIDE RECORDS SUMMARY | 2022-06-22 14:02 | XMS_ITS | Encounter Summary ---
:1990 Author Organization [facility] Address [address] [place] [address] Care Team Providers Name Role Phone Elsewhere, Pcp Primary Care Provider Unavailable Reason for Referral Outpatient (Routine) - Closed Specialty Diagnoses / Procedures Referred By Contact Refer red To Contact Family Medicine Zack Macdonald M.D. [facility] [address] [place] [address] Referral ID Status Reason Start Date Expiration Date Visits Requ ested Visits Authorized [id number] Closed 12/16/2020 12/16/2021 1 1 ITE OPERATOR Reason for Visit Reason Comments Follow-up arm injury Encounter Details Date Type Department Care Team Description 12/16/2020 Office Visit Department of Family Zack Macdonald, Pain Elbow Left Medicine in [place]as[place]inder Hennessy (Primary Dx) [place], [place] [address] [place] [phone] Social History Tobacco Use Types Packs/Day Years [...] do you attend adventism or Never 2021 orthodoxy services? Do you belong to any clubs or No 11/20/2021 organizations such as adventism groups, unions, fraIntercom or athletic groups, or school groups? How [...] at Date Recorded Female 12/02/2021 5:19 PM ALEMITE OPERATOR documented as of this encounter Last Filed Vital Signs Vital Sign Reading Time Taken Comments Blood Pressure 126/92 12/16/2020 3:16 PM ALEMITE OPERATOR Pulse 78 12/16/2020 3:11 PM ALEMITE OPERATOR Temperature 36.2 ??C (97.2 ??F) 12/16/2020 3:11 PM ALEMITE OPERATOR Respiratory Rate - - Oxygen Saturation 97% 12/16/2020 3:11 PM ALEMITE OPERATOR Inhaled Oxygen Concentration - - Weight 72.1 kg (158 lb 14.4 oz) 12/16/2020 3:11 PM ALEMITE OPERATOR Height - - Body Mass Index 31.2 12/14/2020 5:24 PM ALEMITE OPERATOR documented in this encounter Patient Instructions Patient InstructionsZack Macdonald M.D. - 12/16/2020 3:30 PM CST 1. Make an appointment in 3 weeks for follow-up. 2. Sling as needed for comfort. 3. Continue to work on range of motion with the shoulder and elbow. 4. Tylenol or ibuprofen as needed for discomfort. ITE OPERATOR documented in this encounter Progress Notes Zack Macdonald M.D. - 12/16/2020 3:30 PM CST SUBJECTIVE CHIEF COMPLAINT/REASON FOR VISIT Follow-up emergency department visit for fall onto left arm. HISTORY OF PRESENT ILLNESS Lluu Mata is a 30 y.o. female who [...] Tylenol or ibuprofen as needed for discomfort. ITE OPERATOR documented in this encounter Plan of Treatment Scheduled Referrals Name Type Priority Associated Diagnoses Order S [facility] Outpatient Referral Routine Expec taurus: office [...] Left documented in this encounter Care Teams Breakfast Hostess Relationship Specialty Start Date End Date Elsewhere, Pcp PCP - General Family Medicine 01/08/18 01/12/21 documented as of this encounter
--- OUTSIDE RECORDS SUMMARY | 2022-06-22 14:02 | XMS_ITS | Encounter Summary ---
:1990 Author Organization [facility] Address [address] [place] [address] Care Team Providers Name Role Phone Elsewhere, Pcp Primary Care Provider Unavailable Reason for Referral Outpatient (Routine) - Closed Specialty Diagnoses / Procedures Referred By Contact Refer red To Contact Family Medicine Donya Lind APRN, [facility] C.N.P., D.N.P. Referral ID Status Reason Start Date Expiration Date Visits Requ ested Visits Authorized [id number] Closed 01/07/2021 01/07/2022 1 1 Reason for Visit Reason Comments Follow-up Follow up Elbow Encounter Details Date Type Department Care Team Description 01/07/2021 Office Visit Department of Donya Fitzgerald Pain Elbow Left (Primary Dx); Medicine in [facility] FATOU Lu C.N.PMaribell, Rhinitis Allergic [place], [place] D.N.P. [address] [place] [address] Social History Tobacco Use Types Packs/Day Years [...] do you attend rastafari or Never 2021 buddhist services? Do you [...] at Date Recorded Female 12/02/2021 5:19 PM AGENT SPA DESK documented as of this encounter Last Filed [...] Body Mass Index 31.21 12/14/2020 5:24 PM AGENT SPA DESK documented in this encounter Progress Notes Donya [...] meds for pain management. She works at [employer] and has continued to wear sling at [...] plan of care as outlined. Donya Lind, SENIOR SOFTWARE DEVELOPMENT ENGINEER, DNP documented in this encounter Plan of Treatment Scheduled Referrals Name Type Priority Associated Diagnoses Order [facility] Family Medicine Outpatient Referral Routine Expec taurus: office visit 02/07/2021 (clinic) (Approximate), Expires: 01/08/2024 documented as of this encounter Visit Diagnoses Diagnosis Pain Elbow Left - Primary Rhinitis Allergic documented in this encounter Care Teams Door Worker Relationship Specialty Start Date End Date Elsewhere, Pcp PCP - General Family Medicine 01/08/18 01/12/21 documented as of this encounter
--- OUTSIDE RECORDS SUMMARY | 2022-06-22 14:02 | XMS_ITS | Encounter Summary ---
:1990 Author Organization [facility] Address [address] [place] [address] Care Team Providers Name Role Phone Elsewhere, Pcp Primary Care Provider Unavailable Reason for Referral Outpatient (Routine) - Closed Specialty Diagnoses / Procedures Referred By Contact Refer red To Contact Diagnoses [facility] Ben Arce M.D. [address] [place] [address] Referral ID Status Reason Start Date Expiration Visits Visits Date Requested Authorized [id number] Closed Continuity of 10/06/2020 10/06/2021 1 1 Care MOTIVE GLASS MECHANIC Reason for Visit Reason Comments Communication referral Encounter Details Date Type Department Care Team Description 10/06/2020 Clinical Communication Department of Ben Arce Comm unication Family Medicine in [place] (referral ) [place] [address] [facility] [address] [facility] [phone] Social History Tobacco Use Types Packs/Day Years [...] do you attend protestant or Never 2021 yarsanism services? Do you [...] Date Recorded Female 12/02/2021 5:19 PM AUTOMOTIVE GLASS MECHANIC documented as of this encounter Miscellaneous Notes Telephone Encounter - Wilma Montelongo R.N. - 10/06/2020 4:17 PM CST Pt advised that referral was faxed to [facility]: [phone] MOTIVE GLASS MECHANIC Telephone Encounter - Ben Arce M.D. - 10/06/2020 2:55 PM CST External referral order placed. Please fax for patient. Thanks. It should be printed in the office printer. Thanks. MOTIVE GLASS MECHANIC Telephone Encounter - Ilene Gautam - 10/06/2020 [...] to send referral for her to see [facility] Dentist in [place]. She is on a restricted program through insurance and they will only cover this if referred by Dr. Arce. She is having a tooth pulled on Sunday. Please fax to fax #[phone]. Please call her to let her know if this is done. Thank you. I will send this information to the appropriate staff member who will look into your concern. Is there anything else I can help you with today? Thank you for calling [facility]. MOTIVE GLASS MECHANIC documented in this encounter Plan of Treatment Not on filedocumented as of this encounter Visit Diagnoses Diagnosis [facility] - Primary documented in this encounter Care Teams Siebel Architect Relationship Specialty Start Date End Date Elsewhere, Pcp PCP - General Family Medicine 01/08/18 01/12/21 documented as of this encounter
--- OUTSIDE RECORDS SUMMARY | 2022-06-22 14:02 | XMS_ITS | Encounter Summary ---
:1990 Author Organization [facility] Address [address] [place] [address] Care Team Providers Name Role Phone Elsewhere, Pcp Primary Care Provider Unavailable Reason for Referral Physical Therapy (Routine) - Denied Specialty Diagnoses / Procedures Referred By Contact Refer red To Contact Diagnoses Tendonitis Loulou Teresa APRN, [facility] Procedures PT Evaluate and treat C.N.P. [address] [place] [address] Referral ID Status Reason Start Date Expiration Date Visits Requ ested Visits Authorized [id number] Denied 06/08/2020 10/21/2020 1 0 Reason for Visit Reason Comments Post Ed Visit Follow-up Encounter Details Date Type Department Care Team Description 06/08/2020 Office Visit Department of [facility] Loulou Teresa Te ndonitis (Primary Medicine in [facility] COUNTY ATTORNEY, C.N.P. Dx) [place], [place] [address] [place] [phone] Social History Tobacco Use Types Packs/Day Years [...] do you attend amish or Never 2021 pentecostalism services? Do you [...] at Date Recorded Female 12/02/2021 5:19 PM HR OPERATIONS ADVISOR documented as of this encounter Last Filed [...] Primary documented in this encounter Care Teams Process Control Programmer Relationship Specialty Start Date End Date Elsewhere, Pcp PCP - General Family Medicine 01/08/18 01/12/21 documented as of this encounter
--- OUTSIDE RECORDS SUMMARY | 2022-06-22 14:02 | XMS_ITS | Encounter Summary ---
:1990 Author Organization [facility] Address [address] [place] [address] Care Team Providers Name Role Phone Ben Arce M.D. Primary Care Provider Encounter Details Date Type Department Care Team Description 01/21/2021 Orders Only [facility] PCP TH Teja Zuniga Jr., M.D. [address] [place] [address] [place] [phone] (Wo rk) Social History Tobacco [...] do you attend rastafarian or Never 2021 taoism services? Do you [...] Date Recorded Female 12/02/2021 5:19 PM BUILDING ENERGY CONSULTANT documented as of this encounter Plan of Treatment Not on filedocumented as of this encounter Visit Diagnoses Not on filedocumented in this encounter Care Teams Hat Conditioner Relationship Specialty Start Date End Date Ben Arce M.D. PCP - General Family Medicine 01/13/[address] [place] [phone] documented as of this encounter
--- OUTSIDE RECORDS SUMMARY | 2022-06-22 14:02 | XMS_ITS | Encounter Summary ---
:1990 Author Organization [facility] Address [address] [place] [address] Care Team Providers Name Role Phone Elsewhere, Pcp Primary Care Provider Unavailable Reason for Visit Reason Comments Arm Injury pt presents with left arm (e lbow area) pain after falling this morning around 0730. Pt fell outside on icy pavement. No other injuries. Pt did work all day at [employer]. Encounter Details Date Type Department Care Team Description 12/14/2020 Emergency [place] [facility] CalderonBull M, Inj ury Arm Initial Left Department M.D. (Primary Dx) [address] [place] [phone] Social History Tobacco Use Types Packs/Day Years [...] do you attend voodoo or Never 2021 denominational services? Do you [...] at Date Recorded Female 12/02/2021 5:19 PM LOAN AUDITOR documented as of this encounter Last Filed Vital Signs Vital Sign Reading Time Taken Comments Blood Pressure 149/105 12/14/2020 6:00 PM LOAN AUDITOR Pulse 68 12/14/2020 6:10 PM LOAN AUDITOR Temperature 37.1 ??C (98.8 ??F) 12/14/2020 6:00 PM LOAN AUDITOR Respiratory Rate 16 12/14/2020 6:00 PM LOAN AUDITOR Oxygen Saturation 97% 12/14/2020 6:10 PM LOAN AUDITOR Inhaled Oxygen Concentration - - Weight 71.8 kg (158 lb 4.6 oz) 12/14/2020 5:24 PM LOAN AUDITOR Height 152 cm (4' 11.84) 12/14/2020 5:24 PM LOAN AUDITOR Body Mass Index 31.08 12/14/2020 5:24 PM LOAN AUDITOR documented in this encounter Discharge Instructions AttachmentsThe following attachments cannot be sent through Care Everywhere.RICE Therapy for Routine Care of Injuries Ulfq-ir-Rhvs (Italian)documented in this encounter Medications at Time of [...] injuries. Pt did work all day at [employer]. ) HISTORY OF PRESENT ILLNESS 30-year-old female [...] the fall. She went to work at [employer], where she work throughout the day, though [...] Arm Initial Left Bull Calderon M.D. 12/14/201810 AUDITOR documented in this encounter Plan of Treatment Not on filedocumented as of this encounter Procedures Procedure Name Priority Date/Time Associated Comments Diagnosis DX WRIST LEFT 3+ RAD - Semiurgent 12/14/2020 5:57 Resu lts for this VIEWS (Fast; most ED PM LOAN AUDITOR procedure are in patients; some the results inpatients) section. DX SHOULDER LEFT RAD - Semiurgent 12/14/2020 5:54 Resu lts for this 2+ VIEWS (Fast; most ED PM LOAN AUDITOR procedure are in patients; some the results inpatients) section. DX ELBOW LEFT 3+ RAD - Semiurgent 12/14/2020 5:52 Resu lts for this VIEWS (Fast; most ED PM LOAN AUDITOR procedure are in patients; some the results inpatients) section. documented in this encounter Results DX Wrist Left 3+ Views (12/14/2020 5:57 PM LOAN AUDITOR) Anatomical Region Laterality Modality Upper Extremity, Wrist, Musculoskeletal RST LOS, Left Digital Radiography Musculoskeletal ARZ LOS, Muskuloskeletal FLA LOS Specimen (Source) Anatomical Collection Method Collection Time Re ceived Time Location / / Volume Laterality 12/14/2020 5:58 PM LOAN AUDITOR Impressions 12/14/2020 5:59 PM LOAN AUDITOR No acute radiographic abnormalities are demonstrated. Narrative 12/14/2020 5:59 PM LOAN AUDITOR EXAM: DX WRIST LEFT 3+ VIEWS COMPARISON: [...] Shoulder Left 2+ Views (12/14/2020 5:54 PM LOAN AUDITOR) Anatomical Region Laterality Modality Upper Extremity, Shoulder, Musculoskeletal RST LOS, Left Digital Radiography Musculoskeletal ARZ LOS, Muskuloskeletal FLA LOS Specimen (Source) Anatomical Collection Method Collection Time Re ceived Time Location / / Volume Laterality 12/14/2020 5:57 PM LOAN AUDITOR Impressions 12/14/2020 5:58 PM LOAN AUDITOR No acute radiographic abnormalities are demonstrated. Narrative 12/14/2020 5:58 PM LOAN AUDITOR EXAM: DX SHOULDER LEFT 2+ VIEWS COMPARISON: [...] Elbow Left 3+ Views (12/14/2020 5:52 PM LOAN AUDITOR) Anatomical Region Laterality Modality Upper Extremity, Elbow, Musculoskeletal RST LOS, Left Digital Radiography Musculoskeletal ARZ LOS, Muskuloskeletal FLA LOS Specimen (Source) Anatomical Collection Method Collection Time Re ceived Time Location / / Volume Laterality 12/14/2020 5:56 PM LOAN AUDITOR Impressions 12/14/2020 5:57 PM LOAN AUDITOR No acute radiographic abnormalities are demonstrated. Narrative 12/14/2020 5:57 PM LOAN AUDITOR EXAM: DX ELBOW LEFT 3+ VIEWS COMPARISON: [...] tablet 1,000 mg Given 12/14/2020 5:28 PM LOAN AUDITOR 1,000 mg (TYLENOL) 1,000 mg, oral, Once, On Sun12/14/20 at 1721, For 1 dose documented in this encounter Active and Recently Administered Medications Times are shown in LOAN AUDITOR. Scheduled Medication Order 12/12/2020 12/13/2020 12/14/2020 acetaminophen tablet 1,000 mg (TYLENOL) (COMPLETED) 1728 (Given - Provider: Nita Maira, R.N.) 1,000 mg, oral, Once, On Sun12/14/20 at 1721, For 1 dose documented in this encounter Care Teams Flight Mechanic Relationship Specialty Start Date End Date Elsewhere, Pcp PCP - General Family Medicine 01/08/18 01/12/21 documented as of this encounter
--- OUTSIDE RECORDS SUMMARY | 2022-06-22 14:02 | XMS_ITS | Encounter Summary ---
:1990 Author Organization [facility] Address [address] [place] [address] Care Team Providers Name Role Phone Ben Arce M.D. Primary Care Provider Reason for Visit Reason Comments Med Refill Encounter Details Date Type Department Care Team Description 03/16/2021 Refill Department of Family Medicine Ben Maynard M.D. Med Refill in [facility] [address] [place] [phone] (Wo rk) Social History Tobacco Use Types [...] do you attend anabaptism or Never 2021 congregation services? Do you [...] at Date Recorded Female 12/02/2021 5:19 PM CHEMICAL ANALYTICAL SAMPLER documented as of this encounter Miscellaneous Notes Telephone Encounter - Celina Goyal RMaribellN. - 03/16/2021 11:58 AM CDT Refills must come from Dr Arce due to a Restricted program Unable to refill per protocol: Name of Medications Needing Refill: Naproxen Last Refill Date: 02/10/21 [id number], 0 refills Last / Future Appointment: 01/13/21 documented in this encounter Plan of Treatment Not on filedocumented as of this encounter Visit Diagnoses Diagnosis Pain Elbow Left documented in this encounter Care Teams Roofing Apprentice Relationship Specialty Start Date End Date Ben Arce M.D. PCP - General Family Medicine 01/13/[address] [place] [phone] documented as of this encounter
--- OUTSIDE RECORDS SUMMARY | 2022-06-22 14:02 | XMS_ITS | Encounter Summary ---
:1990 Author Organization [facility] Address [address] [place] [address] Care Team Providers Name Role Phone Elsewhere, Pcp Primary Care Provider Unavailable Reason for Visit Physical Therapy (Routine) - Denied Specialty Diagnoses / Procedures Referred By Contact Refer red To Contact Diagnoses Tendonitis Loulou Teresa APRN, [facility] Procedures PT Evaluate and treat C.N.P. [address] [place] [address] Referral ID Status Reason Start Date Expiration Date Visits Requ ested Visits Authorized [id number] Denied 06/08/2020 10/21/2020 1 0 Encounter Details Date Type Department Care Team Description 06/30/2020 Comprehensive Visit Department of Physical Loulou Metz APRN, C.N.P. [address] [place] [phone] Tendonitis Elbow (Primary Dx); Medicine and Yunior Robins P.TMaribell [address] [place] [phone] Tendonitis Rehabilitation in [place], [place] [address] [place] [phone] Social History Tobacco Use Types Packs/Day Years [...] do you attend anglican or Never 2021 yarsani services? Do you belong to any clubs or No 11/20/2021 organizations such as anglican groups, unions, fraFitBionic or athletic groups, or school groups? How [...] at Date Recorded Female 12/02/2021 5:19 PM PRESS ROOM SUPERVISOR documented as of this encounter Consult [...] upper extremity pain/tendinitis Onset Date: 06/08/20 Payor: [employer] [place] CARE / Plan: [facility] CARE RESTRICTED PLAN / Product Type: [...] Patient works 40 hours at the local [employer]. Patient has a 7-1/2-year-old son. 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 Patient works the [...] Department of Physical Medicine and Rehabilitation in [address] [address] Dept: [phone] S ROOM SUPERVISOR documented in this encounter Plan of Treatment Not on filedocumented as of this encounter Visit Diagnoses Diagnosis Tendonitis Elbow - Primary Tendonitis documented in this encounter Care Teams Want Ad Clerk Relationship Specialty Start Date End Date Elsewhere, Pcp PCP - General Family Medicine 01/08/18 01/12/21 documented as of this encounter
--- OUTSIDE RECORDS SUMMARY | 2022-06-22 14:02 | XMS_ITS | Encounter Summary ---
:1990 Author Organization [facility] Address [address] [place] [address] Care Team Providers Name Role Phone Elsewhere, Pcp Primary Care Provider Unavailable Encounter Details Date Type Department Care Team Description 01/07/2021 Hospital Encounter Department of Renae, Zack Hammer, Pain Elbow Left Radiology, [facility], in [place] [address] [place], [place] [address] [phone] [place], [place] [phone] (Work) [phone] Social History Tobacco Use Types Packs/Day Years [...] or relatives? How often do you attend latter-day or Never 2021 confucianist services? Do you belong to any clubs or No 11/20/2021 organizations such as latter-day groups, unions, fraternal or athletic groups, or [...] at Date Recorded Female 12/02/2021 5:19 PM INDUSTRIAL HYGIENE ENGINEER documented as of this encounter Medications at [...] Left documented in this encounter Care Teams Chinese Herbalist Relationship Specialty Start Date End Date Elsewhere, Pcp PCP - General Family Medicine 01/08/18 01/12/21 documented as of this encounter
--- OUTSIDE RECORDS SUMMARY | 2022-06-22 14:02 | XMS_ITS | Encounter Summary ---
:1990 Author Organization [facility] Address [address] [place] [address] Care Team Providers Name Role Phone Elsewhere, Pcp Primary Care Provider Unavailable Encounter Details Date Type Department Care Team Description 01/07/2021 Clinical Communication Department of [facility] Donya Lind [facility] in [facility], C.N.P.[place], [place] D.N.P. [address] [place] [phone] Social History Tobacco Use Types Packs/Day Years [...] do you attend taoism or Never 2021 temple services? Do you belong to any clubs or No 11/20/2021 organizations such as taoism groups, unions, fraternal or athletic groups, or [...] Date Recorded Female 12/02/2021 5:19 PM ELECTRICIAN RECTIFIER MAINTENANCE documented as of this encounter Miscellaneous Notes Telephone Encounter - Rylie Le R.M.A. - 01/07/2021 4:38 PM CDT Patient called and is unable to get her medications that Donya Brojas APRN, C.N.Anna., D.N.P., patient wanted to have [...] patient Please call [facility]land before patient arrives... [phone] documented in this encounter Plan of Treatment Not on filedocumented as of this encounter Visit Diagnoses Not on filedocumented in this encounter Care Teams Heating Worker Relationship Specialty Start Date End Date Elsewhere, Pcp PCP - General Family Medicine 01/08/18 01/12/21 documented as of this encounter
--- OUTSIDE RECORDS SUMMARY | 2022-06-22 14:02 | XMS_ITS | Encounter Summary ---
:1990 Author Organization [facility] Address [address] [place] [address] Care Team Providers Name Role Phone Elsewhere, Pcp Primary Care Provider Unavailable Reason for Visit Reason Comments Wrist Pain 30 y/o f presents with R wri st and hand pain since . Pt says is sharp and radiates up her ar m, no injury, has been taking advil with some relief. Encounter Details Date Type Department Care Team Description 05/30/2020 Emergency [place] [facility] Sigrid Forbes endofrantz Forearm Department D, M.D. (Primary Dx) [address] [place] [facility] [place] [phone] (Wo rk) Social History Tobacco Use Types [...] do you attend uatsdin or Never 2021 druze services? Do you [...] at Date Recorded Female 12/02/2021 5:19 PM ELEMENTARY PRINCIPAL documented as of this encounter Last Filed [...] Body Mass Index 30.81 12/26/2019 9:26 AM ELEMENTARY PRINCIPAL documented in this encounter Discharge Instructions Discharge [...] clinic by calling the appointment center at [phone]. Thank you for choosing [facility] for your care. It was [...] Forbes M.D. - 05/30/2020 12:11 PM CDT [place] [facility] EMERGENCY DEPARTMENT ENCOUNTER Patient Name: [...] Primary documented in this encounter Care Teams Customer Response Representative Relationship Specialty Start Date End Date Elsewhere, Pcp PCP - General Family Medicine 01/08/18 01/12/21 documented as of this encounter
--- OUTSIDE RECORDS SUMMARY | 2022-06-22 14:03 | XMS_ITS | Encounter Summary ---
:1990 Author Organization [facility] Address [address] [place] [address] Care Team Providers Name Role Phone Elsewhere, Pcp Primary Care Provider Unavailable Reason for Visit Reason Comments Sore Throat SX: in ER Sunday with josiane st inflammation; st started Encounter Details Date Type Department Care Team Description 07/26[facility]2019 [facility] (Primary Dx) [place], [place] [address], [address] [place] [address] [phone] (Wo rk) Social History Tobacco Use Types [...] you attend oriental orthodox or Never 2021 yazidi services? Do you [...] at Date Recorded Female 12/02/2021 5:19 PM COMMUNITY SERVICE WORKER documented as of this encounter Last [...] Organization Address City/State/ZIP Code Phon e Number [place] [address] [place] [address] [facility], PCR, Point [...] Organization Address City/State/ZIP Code Phon e Number [place] [address] [place] [address] [facility] documented in this encounter Visit Diagnoses Diagnosis Pharyngitis Acute - Primary documented in this encounter Care Teams Customer Experience Professional Relationship Specialty Start Date End Date Elsewhere, Pcp PCP - General Family Medicine 01/08/18 01/12/21 documented as of this encounter
--- OUTSIDE RECORDS SUMMARY | 2022-06-22 14:03 | XMS_ITS | Encounter Summary ---
:1990 Author Organization [facility] Address [address] [place] [address] Care Team Providers Name Role Phone Elsewhere, Pcp Primary Care Provider Unavailable Reason for Referral Outpatient (Routine) - Closed Specialty Diagnoses / Procedures Referred By Contact Refer red To Contact Family Medicine Ben Arce M.D. [facility] Region [address] [place] [address] Referral ID Status Reason Start Date Expiration Date Visits Requ ested Visits Authorized [id number] Closed 01/28/2019 01/28/2020 1 1 Reason for Visit Reason Comments Follow-up Sprain knee Encounter Details Date Type Department Care Team Description 01/28/2019 Comprehensive Visit Department of Ben Metzger, Pain Knee Left (Primary Dx); [facility]; [place], [place] [address] Thrombosis Superficial Vein Lower Extremity Left [address] [place] [phone] Social History Tobacco Use Types Packs/Day Years [...] do you attend muslim or Never 2021 baptism services? Do you belong to any clubs or No 11/20/2021 organizations such as muslim groups, unions, fraBass Manager or athletic groups, or school groups? How [...] Date Recorded Female 12/02/2021 5:19 PM MAINTENANCE CHIEF documented as of this encounter Last [...] Name Type Priority Associated Diagnoses Order S [facility] Medicine Outpatient Referral Routine Expec taurus: [...] Leg documented in this encounter Care Teams Jig Box Operator Relationship Specialty Start Date End Date Elsewhere, Pcp PCP - General Family Medicine 01/08/18 01/12/21 documented as of this encounter
--- OUTSIDE RECORDS SUMMARY | 2022-06-22 14:03 | XMS_ITS | Encounter Summary ---
:1990 Author Organization [facility] Address [address] [place] [address] Care Team Providers Name Role Phone Elsewhere, Pcp Primary Care Provider Unavailable Reason for Visit Reason Comments Vomiting Pt presents w/nausea, vomiti ng and diarrhea onset 2300 yesterday. Encounter Details Date Type Department Care Team Description 11/11/2019 Emergency [place] [facility] Sigrid Forbes ausea And Vomiting (Primary Dx); Department D, M.D. Diarrhea [address] [place] [phone] (Wo rk) Social History Tobacco Use Types [...] do you attend zoroastrian or Never 2021 druze services? Do you [...] Date Recorded Female 12/02/2021 5:19 PM MACHINE EGG WASHER documented as of this encounter Last Filed Vital Signs Vital Sign Reading Time Taken Comments Blood Pressure 112/79 11/11/2019 7:01 AM MACHINE EGG WASHER Pulse 81 11/11/2019 7:01 AM MACHINE EGG WASHER Temperature 36.4 ??C (97.5 ??F) 11/11/2019 7:01 AM MACHINE EGG WASHER Respiratory Rate 16 11/11/2019 7:01 AM MACHINE EGG WASHER Oxygen Saturation 93% 11/11/2019 7:01 AM MACHINE EGG WASHER Inhaled Oxygen Concentration - - Weight 71.8 kg (158 lb 4.6 oz) 11/11/2019 5:50 AM MACHINE EGG WASHER Height 152.4 cm (5') 11/11/2019 5:50 AM MACHINE EGG WASHER Body Mass Index 30.91 11/11/2019 5:50 AM MACHINE EGG WASHER documented in this encounter Discharge Instructions Discharge InstructionsToSigrid geronimo M.D. - 11/11/2019 6:51 AM MACHINE EGG WASHER Return to the Emergency Department/ if he [...] clinic by calling the appointment center at [phone]. Thank you for choosing [facility] for your care. It was a pleasure taking care of you today in our Emergency Department. INE EGG WASHER AttachmentsThe following attachments cannot be sent through Care Everywhere. Nausea and Vomiting Adult (Indian)Diarrhea Adult Ewep-jj-Cmxd (Indian) documented in this encounter Medications at Time [...] Forbes M.D. - 11/11/2019 6:16 AM CST [place] [facility] EMERGENCY DEPARTMENT ENCOUNTER Patient Name: Lulu Mata PCP: Primary Care Physician SUBJECTIVE CHIEF COMPLAINT/REASON FOR VISIT Vomiting (Pt presents w/nausea, vomiting and diarrhea onset 2300 yesterday.) HISTORY OF PRESENT ILLNESS Lulu Mata is a 29 y.o. female with a history of asthma presenting with 7 hours of vomiting and diarrhea. She ate dinner at the [employer] last night. Several different types of food [...] felt well before eating dinner at the [employer]. She denies any recentabdominal pain, no prior [...] Forbes M.D. 11/11/19650 Sigrid Forbes M.D. 11/11/19654 INE EGG WASHER documented in this encounter Plan of Treatment Not on filedocumented as of this encounter Visit Diagnoses Diagnosis Nausea And Vomiting - Primary Diarrhea documented in this encounter Administered Medications Inactive Administered Medications - up to 3 most recent administrations Medication Order MAR Action Action Date Dose Rate Site ondansetron ODT disintegrating Given 11/11/2019 6:10 AM MACHINE EGG WASHER 8 mg tablet 8 mg (ZOFRAN-ODT) 8 mg, oral, Once, On Sun11/11/19 at 0605, For 1 dose, When splitting ODT at bedside, handle with gloves and a pill splitter to prevent moisture contact. documented in this encounter Active and Recently Administered Medications Times are shown in MACHINE EGG WASHER. Scheduled Medication Order 11/09/2019 11/10/2019 11/11/2019 ondansetron ODT disintegrating tablet 8 mg (ZOFRAN-ODT) ([facility] ED) 0610 (Given - Provider: Tara Brock R.N.) 8 mg, oral, Once, On Sun11/11/19 at 0605 , For 1 dose, When splitting ODT at bedside, handle with gloves and a pill splitter to prevent moisture contact. documented in this encounter Care Teams Yard Manager Relationship Specialty Start Date End Date Elsewhere, Pcp PCP - General Family Medicine 01/08/18 01/12/21 documented as of this encounter
--- OUTSIDE RECORDS SUMMARY | 2022-06-22 14:03 | XMS_ITS | Encounter Summary ---
:1990 Author Organization [facility] Address [address] [place] [address] Care Team Providers Name Role Phone Elsewhere, Pcp Primary Care Provider Unavailable Reason for Referral Outpatient (Routine) - Closed Specialty Diagnoses / Procedures Referred By Contact Refer red To Contact Emergency Medicine Diagnoses Pain Neck Strain Neck Initial Contusion Leg Initial Left Derrek Leon M.D. [facility] Region [address] [place] [address] Referral ID Status Reason Start Date Expiration Date Visits Requ ested Visits Authorized [id number] Closed 08/01/2019 07/31/2020 1 1 Reason for Visit Reason Comments Neck Pain Pt presents from Urgent care for evaluation of neck pain and tingling of left leg. Encounter Details Date Type Department Care Team Description 08/01/2019 Emergency [place] [facility] Derrek Leon Pa in Neck (Primary Dx); Department M.DMaribell Strain Neck Initial; [address] [facility] [address] [facility] Contusion Leg Initial Left; [place], [place] Paresthesias Feet [phone] Social History Tobacco Use Types Packs/Day [...] do you attend caodaism or Never 2021 caodaism services? Do you [...] at Date Recorded Female 12/02/2021 5:19 PM HEARING EXAMINER documented as of this encounter Last Filed [...] be sent through Care Everywhere. Muscle Strain (Dominican)Cervical Sprain (Dominican)Contusion (Dominican)documented in this encounter Medications at Time of [...] Feet documented in this encounter Care Teams Industrial X Ray Operator Relationship Specialty Start Date End Date Elsewhere, Pcp PCP - General Family Medicine 01/08/18 01/12/21 documented as of this encounter
--- OUTSIDE RECORDS SUMMARY | 2022-06-22 14:03 | XMS_ITS | Encounter Summary ---
:1990 Author Organization [facility] Address [address] [place] [address] Care Team Providers Name Role Phone Elsewhere, Pcp Primary Care Provider Unavailable Reason for Visit Reason Comments Sinusitis Encounter Details Date Type Department Care Team Description 01/10/2020 Office Visit Urgent Care, [facility], Sin usitis Acute [facility], in [place], FATOU, C.N.P., (Samina pendleton Dx) [place] D.N.P. [address] [place] [phone] [phone] Social History Tobacco Use Types Packs/Day Years [...] do you attend mosque or Never 2021 christian services? Do you [...] at Date Recorded Female 12/02/2021 5:19 PM TIMBER SPRINKLER documented as of this encounter Last Filed [...] Body Mass Index 30.4 12/26/2019 9:26 AM TIMBER SPRINKLER documented in this encounter Patient Instructions Patient [...] and replace them as recommended by the accounting manager. Note: Having your humidity too high (more [...] help open sinuses and allow easier breathing. Htlq-qpk-etgyhpk treatments* In addition to the previous suggestions, you may get relief for nasal and sinus obstruction or discomfort by taking non-prescription, ptlh-tyt-jxdbbww (OTC) medications. Many OTC medications combine a [...] your health care provider. ? 2008 [facility] [place] [employer] ([facility]). All rights reserved. [id number] documented in this encounter Progress Notes Esther [...] Primary documented in this encounter Care Teams Coat Hanger Shaper Machine Operator Relationship Specialty Start Date End Date Elsewhere, Pcp PCP - General Family Medicine 01/08/18 01/12/21 documented as of this encounter
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
--- OUTSIDE RECORDS SUMMARY | 2022-06-22 14:03 | XMS_ITS | Encounter Summary ---
:1990 Author Organization [facility] Address [address] [place] [address] Care Team Providers Name Role Phone Elsewhere, Pcp Primary Care Provider Unavailable Reason for Visit MRI/CAT/PET Scan (Routine) - Closed Specialty Diagnoses / Procedures Referred By Contact Refer red To Contact Radiology Diagnoses Pain Cervical Esther Andrea, SERVICE AIDE, [facility] Region Procedures CT Cervical Spine without IV Contrast C.N.P., D.N.P. [address] [place] [address] Referral ID Status Reason Start Date Expiration Date Visits Requ ested Visits Authorized [id number] Closed 08/01/2019 07/31/2020 1 1 Encounter Details Date Type Department Care Team Description 08/01/2019 Hospital Encounter Department of Radiology Eliazar Andrea britt, in [facility] FATOU, C.N.P., [address] [place] D.N.P. [place], [place] [phone] [place] [phone] [place] [phone] Social History Tobacco Use Types Packs/Day Years [...] do you attend sikh or Never 2021 holiness services? Do you belong to any clubs or No 11/20/2021 organizations such as sikh groups, unions, fraLoHaria or athletic groups, or school groups? How [...] at Date Recorded Female 12/02/2021 5:19 PM CHAIR INSTALLER documented as of this encounter Medications at [...] N/A Computed Tomography ARZ LOS, Neuroradiology FLA [facility] Specimen (Source) Anatomical Collection Method [...] on filedocumented in this encounter Care Teams Fire Inspector Relationship Specialty Start Date End Date Elsewhere, Pcp PCP - General Family Medicine 01/08/18 01/12/21 documented as of this encounter
--- OUTSIDE RECORDS SUMMARY | 2022-06-22 14:03 | XMS_ITS | Encounter Summary ---
:1990 Author Organization [facility] Address [address] [place] [address] Care Team Providers Name Role Phone Elsewhere, Pcp Primary Care Provider Unavailable Reason for Visit Reason Comments Follow-up Outpatient (Routine) - Closed Specialty Diagnoses / Procedures Referred By Contact Refer red To Contact Family Medicine Ben Arce M.D. [facility] Region [address] [place] [address] Referral ID Status Reason Start Date Expiration Date Visits Requ ested Visits Authorized [id number] Closed 01/28/2019 01/28/2020 1 1 Encounter Details Date Type Department Care Team Description 02/11/2019 Office Visit Department of Ben Metzger M.D. Thrombosis Superficial Medicine in [facility] [address] Vein Lower Extremity [place], [place] Left (Primary Dx) [address] [place] [address] [place], [place] [phone] (Work) [phone] Social History Tobacco Use Types Packs/Day Years [...] do you attend religious or Never 2021 restoration services? Do you [...] at Date Recorded Female 12/02/2021 5:19 PM ULTRASONIC SEAMING MACHINE OPERATOR documented as of this encounter [...] Primary documented in this encounter Care Teams Carbide Die Maker Relationship Specialty Start Date End Date Elsewhere, Pcp PCP - General Family Medicine 01/08/18 01/12/21 documented as of this encounter
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
--- OUTSIDE RECORDS SUMMARY | 2022-06-22 14:03 | XMS_ITS | Encounter Summary ---
:1990 Author Organization [facility] Address [address] [place] [address] Care Team Providers Name Role Phone Elsewhere, Pcp Primary Care Provider Unavailable Reason for Visit Reason Comments PAYAL has had symptoms for 3-4 we eks Muscle Pain chest and back -05/31, has been using ibuprofen Encounter Details Date Type Department Care Team Description 10/31/2018 Emergency [place] [facility] Valerie Malone, Infec kori Upper Department MMaribellDMaribell Respiratory (Primary [address] Dx) [place] [address] [phone] Social History Tobacco Use Types Packs/Day Years [...] do you attend mormonism or Never 2021 lutheran services? Do you [...] Date Recorded Female 12/02/2021 5:[address]INTAINER documented as of this encounter Last Filed Vital Signs Vital Sign Reading Time Taken Comments Blood Pressure 134/95 10/31/2018 6:[address]ER Pulse 81 10/31/2018 6:[address]INTAINER Temperature 37.2 ??C (99 ??F) 10/31/2018 6:[address]ER Respiratory Rate 20 10/31/2018 6:[address] Oxygen Saturation 98% 10/31/2018 6:[address]IN[address]ER Inhaled Oxygen Concentration - - Weight 73.3 kg (161 lb 9.6 oz) 10/31/2018 6:[address]IN[address]ER Height 152.4 cm (5') 10/31/2018 6:[address]IN[address] Body Mass Index 31.56 10/31/2018 6:[address] documented in this encounter Discharge Instructions AttachmentsThe following attachments cannot be sent through Care Everywhere. Upper Respiratory Infection Adult Icgs-gc-Apst (Chinese)documented in this encounter Medications at Time [...] Upper Respiratory Valerie Malone M.D. 10/31/[address] documented in this encounter Plan of Treatment Not on filedocumented as of this encounter Visit Diagnoses Diagnosis Infection Upper Respiratory - Primary documented in this encounter Care Teams Foreign Car Mechanic Relationship Specialty Start Date End Date Elsewhere, Pcp PCP - General Family Medicine 01/08/18 01/12/21 documented as of this encounter
--- OUTSIDE RECORDS SUMMARY | 2022-06-22 14:03 | XMS_ITS | Encounter Summary ---
:1990 Author Organization [facility] Address [address] [place] [address] Care Team Providers Name Role Phone Elsewhere, Pcp Primary Care Provider Unavailable Reason for Visit Reason Comments Sinus Symptoms ST, Cipriano ear pressure, conges tion; 3.5 wks ago Encounter Details Date Type Department Care Team Description 06/27/2019 Office Visit Ur[facility] [place], [place] [address], [address] [place] [phone] (Wo rk) Social History Tobacco Use Types [...] do you attend taoism or Never 2021 protestant services? Do you [...] at Date Recorded Female 12/02/2021 5:19 PM PSYCHIATRIC AIDE documented as of this encounter Last Filed [...] 06/27/2019 3:00 PM CDT Addended by: SANA ASVAGE on: 06/27/2019 04:19 PM Modules accepted: Orders documented in this encounter Plan of Treatment Not on filedocumented as of this encounter Visit Diagnoses Diagnosis Sinusitis Acute - Primary documented in this encounter Care Teams Fur Nailer Relationship Specialty Start Date End Date Elsewhere, Pcp PCP - General Family Medicine 01/08/18 01/12/21 documented as of this encounter
--- OUTSIDE RECORDS SUMMARY | 2022-06-22 14:03 | XMS_ITS | Encounter Summary ---
:[address] [facility] Address [address] [place] [address] Care Team Providers Name Role Phone Elsewhere, Pcp Primary Care Provider Unavailable Reason for Visit Reason Comments Sinus Symptoms 30 + days ago Encounter Details Date Type Department Care Team Description 12/12/2018 Office Visit Express [facility] in [facility] Mario Savage, Inf ection [place], [place] P.A.-C. Respiratory (Primary [address], Dx) [facility] [address] [place], [place] [phone] (Wo rk) Social History Tobacco Use Types [...] do you attend congregational or Never 2021 caodaism services? Do you [...] at Date Recorded Female 12/02/2021 5:19 PM ELECTRIC POWER SUPERINTENDENT documented as of this encounter Last Filed Vital Signs Vital Sign Reading Time Taken Comments Blood Pressure 136/92 12/12/2018 7:15 PM ELECTRIC POWER SUPERINTENDENT Pulse 86 12/12/2018 7:15 PM ELECTRIC POWER SUPERINTENDENT Temperature 36.9 ??C (98.4 ??F) 12/12/2018 7:15 PM ELECTRIC POWER SUPERINTENDENT Respiratory Rate - - Oxygen Saturation 96% 12/12/2018 7:15 PM ELECTRIC POWER SUPERINTENDENT Inhaled Oxygen Concentration - - Weight 72 kg (158 lb 11.7 oz) 12/12/2018 7:15 PM ELECTRIC POWER SUPERINTENDENT Height - - Body Mass Index 31 10/31/2018 6:04 PM ELECTRIC POWER SUPERINTENDENT documented in this encounter Patient Instructions Patient [...] ED or urgent care if worsening. Mario aSvage P.A.-C. TRIC POWER SUPERINTENDENT documented in this encounter Progress Notes Mario [...] urgent care if worsening. Mario Savage P.A.-C. TRIC POWER SUPERINTENDENT documented in this encounter Plan of Treatment Not on filedocumented as of this encounter Visit Diagnoses Diagnosis Infection Upper Respiratory - Primary documented in this encounter Care Teams Mental Telepathist Relationship Specialty Start Date End Date Elsewhere, Pcp PCP - General Family Medicine 01/08/18 01/12/21 documented as of this encounter
--- OUTSIDE RECORDS SUMMARY | 2022-06-22 14:03 | XMS_ITS | Encounter Summary ---
:1990 Author Organization [facility] Address [address] [place] [address] Care Team Providers Name Role Phone Elsewhere, [...] Type Department Care Team Description 07/23/2019 Emergency [place] [facility] Bull Calderon Cos tochondritis (Primary Department M.D. Dx) [address] [place] [phone] Social History Tobacco Use Types Packs/Day Years [...] do you attend quaker or Never 2021 buddhist services? Do you [...] at Date Recorded Female 12/02/2021 5:19 PM DEPARTMENT STORE SALESPERSON documented as of this encounter Last Filed [...] cannot be sent through Care Everywhere. Costochondritis Chcw-ps-Vczb (Amharic)documented in this encounter Medications at Time [...] Plan Impression: Costochondritis Plan: Patient has utilize hfic-ukn-vntflso medications without improvement or alteration in her symptomatology. Patient be started on prednisone 20 mg daily for 5 days, the 1st dose administered here in the emergency department. Ultram 50 mg 1/2-1 tablet to be utilized every 6 hours as needed for painrating 7-10/10 severity, quantity 15 with no refills was prescribed from the [email or web address] medication dispenser as it is currently raining [...] dose documented in this encounter Care Teams Pharmaceutical Botanist Relationship Specialty Start Date End Date Elsewhere, Pcp PCP - General Family Medicine 01/08/18 01/12/21 documented as of this encounter
--- OUTSIDE RECORDS SUMMARY | 2022-06-22 14:03 | XMS_ITS | Encounter Summary ---
:1990 Author Organization [facility] Address [address] [place] [address] Care Team Providers Name Role Phone Elsewhere, Pcp Primary Care Provider Unavailable Reason for Referral Outpatient (Routine) - Closed Specialty Diagnoses / Procedures Referred By Contact Refer red To Contact Neurology Diagnoses Contusion Leg Initial Left Numbness Ben Arce M.D. [facility] [address] [place] [address] Referral ID Status Reason Start Date Expiration Date Visits V isits Requested Authorized [id number] Closed Specialty 08/11/2019 08/10/2020 1 1 Services Required Reason for Visit Reason Comments Follow-up ED 08/01 [facility] Outpatient (Routine) - Closed Specialty Diagnoses / Procedures Referred By Contact Refer red To Contact Emergency Medicine Diagnoses Pain Neck Strain Neck Initial Contusion Leg Initial Left Derrek Leon M.D. [facility] Region [facility] [place] [address] Referral ID Status Reason Start Date Expiration Date Visits Requ ested Visits Authorized [id number] Closed 08/01/2019 07/31/2020 1 1 Encounter Details Date Type Department Care Team Description 08/11/2019 Office Visit Department of Ben Metzger M.D. Pain Neck (Primary Dx); Medicine in [facility] [address] Strain Neck Initial; [place], [place] Contusion Leg Initial Left; [address] [place] [address] Numbness [place], [place] [phone] (Work) [phone] Social History Tobacco Use Types Packs/Day Years [...] do you attend samaritan or Never 2021 spiritism services? Do you [...] at Date Recorded Female 12/02/2021 5:19 PM TICKET DISPENSER CHANGER documented as of this encounter Last [...] Numbness documented in this encounter Care Teams Wastewater Treatment Plant Attendant Relationship Specialty Start Date End Date Elsewhere, Pcp PCP - General Family Medicine 01/08/18 01/12/21 documented as of this encounter
--- OUTSIDE RECORDS SUMMARY | 2022-06-22 14:03 | XMS_ITS | Encounter Summary ---
:1990 Author Organization [facility] Address [address] [place] [address] Care Team Providers Name Role Phone Elsewhere, Pcp Primary Care Provider Unavailable Encounter Details Date Type Department Care Team Description 01/28/2019 Hospital Encounter Department of Radiology, Ben Arias M.D. [place] [address] [address] [place], [place] [facility] [address] [place] [address] [phone] Social History Tobacco Use Types Packs/Day Years [...] do you attend alevism or Never 2021 methodist services? Do you [...] at Date Recorded Female 12/02/2021 5:19 PM HOSPITALITY DIRECTOR documented as of this encounter Medications at [...] on filedocumented in this encounter Care Teams Stemhole Borer And Topper Relationship Specialty Start Date End Date Elsewhere, Pcp PCP - General Family Medicine 01/08/18 3 documented as of this encounter
--- OUTSIDE RECORDS SUMMARY | 2022-06-22 14:03 | XMS_ITS | Encounter Summary ---
:1990 Author Organization [facility] [place] [facility] Address [address] [place] [address] Care Team Providers Name Role Phone Elsewhere, Pcp Primary Care Provider Unavailable Reason for Referral Outpatient (Routine) - Canceled Specialty Diagnoses / Procedures Referred By Contact Refer red To Contact Diagnoses Numbness Ben Arce M.D. External, Referring [address] [place] [address] Referral ID Status Reason Start Date Expiration Date Visits V isits Requested Authorized [id number] Canceled No 08/26/2019 08/25/2020 1 1 access/unsa tisfactory access ATORS SCHOOL MANAGER Reason for Visit Reason Onset Date Comments Communication 08/26/2019 Encounter Details Date Type Department Care Team Description 08/26/2019 Clinical Communication Department of Ben Metzger , Communication Medicine [place] [address] [place] [phone] Social History Tobacco Use Types Packs/Day Years [...] do you attend confucianism or Never 2021 yazidi services? Do you belong to any clubs or No 11/20/2021 organizations such as confucianism groups, unions, [employer] or athletic groups, or school groups? How [...] at Date Recorded Female 12/02/2021 5:19 PM OPERATORS SCHOOL MANAGER documented as of this encounter Miscellaneous Notes Telephone Encounter - Alexandria Whittington - 08/27/2019 9:52 AM CST I will work on this. ATORS SCHOOL MANAGER Telephone Encounter - Sridhar Espinal - 08/27/2019 8:24 AM CST Alexandria, can you work on this please? Thank you!! ATORS SCHOOL MANAGER Telephone Encounter - Ben Arce M.D. - 08/26/2019 3:36 PM CST External referral order placed. Please help her to find nearby neurology. None in [place], she has travel to [place] or [facility]. Thanks. ATORS SCHOOL MANAGER Telephone Encounter - Nadya Koehler, RMaribellN. - 08/26/2019 12:19 PM OPERATORS SCHOOL MANAGER Can an outside referral be entered for neurology for sooner appointment? Thank you. ATORS SCHOOL MANAGER Telephone Encounter - Rylie Juárez - 08/26/2019 12:[address] Daiana Booth does not have an opening in [place] until December and Lulu cannot [facility]. Can a referral be placed for a neurologist that is closer? ATORS SCHOOL MANAGER documented in this encounter Plan of Treatment Not on filedocumented as of this encounter Visit Diagnoses Diagnosis Numbness - Primary documented in this encounter Care Teams Cdl A Driver Relationship Specialty Start Date End Date Elsewhere, Pcp PCP - General Family Medicine 01/08/18 01/12/21 documented as of this encounter
--- OUTSIDE RECORDS SUMMARY | 2022-06-22 14:03 | XMS_ITS | Encounter Summary ---
:1990 Author Organization [facility] Address [address] [place] [address] Care Team Providers Name Role Phone Elsewhere, Pcp Primary Care Provider Unavailable Reason for Visit Reason Comments Facial Pain Pt presents for eval of sinu s pain, congestion, throat pain and claire ear pain. sick for 3 1/2 weeks . No known fever. Using OTC sudafed and afrin without relief. Encounter Details Date Type Department Care Team Description 09/09/2019 Emergency [place] [facility] Sigrid Forbes (Primary Dx); Department D, M.D. Infection Upper Respiratory Viral [address] [facility] [place] [phone] [phone] (Wo rk) Social History Tobacco Use Types [...] do you attend sikhism or Never 2021 moravian services? Do you [...] at Date Recorded Female 12/02/2021 5:19 PM RESIDENTIAL REAL ESTATE APPRAISER documented as of this encounter Last Filed Vital Signs Vital Sign Reading Time Taken Comments Blood Pressure 135/101 09/09/2019 9:30 AM RESIDENTIAL REAL ESTATE APPRAISER Pulse 75 09/09/2019 9:30 AM RESIDENTIAL REAL ESTATE APPRAISER Temperature 36 ??C (96.8 ??F) 09/09/2019 9:30 AM RESIDENTIAL REAL ESTATE APPRAISER Respiratory Rate 18 09/09/2019 9:30 AM RESIDENTIAL REAL ESTATE APPRAISER Oxygen Saturation 96% 09/09/2019 9:30 AM RESIDENTIAL REAL ESTATE APPRAISER Inhaled Oxygen Concentration - - Weight 72.6 kg (160 lb) 09/09/2019 9:39 AM RESIDENTIAL REAL ESTATE APPRAISER Height 152.4 cm (5') 09/09/2019 9:39 AM RESIDENTIAL REAL ESTATE APPRAISER Body Mass Index 31.25 09/09/2019 9:39 AM RESIDENTIAL REAL ESTATE APPRAISER documented in this encounter Discharge Instructions Discharge InstructionsTomSigrid remy M.D. - 09/09/2019 9:41 AM RESIDENTIAL REAL ESTATE APPRAISER Return to the Emergency Department if you [...] clinic by calling the appointment center at [phone]. Thank you for choosing [facility] for your care. It was a pleasure taking care of you today in our Emergency Department. DENTIAL REAL ESTATE APPRAISER AttachmentsThe following attachments cannot be sent through Care Everywhere. Sinus Rinse Edrr-bh-Emam (Amharic)Sinusitis Adult Yokt-xe-Itss (Amharic) documented in this encounter Medications at Time [...] Forbes M.D. 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 09/09/19946 DENTIAL REAL ESTATE APPRAISER documented in this encounter Plan of Treatment Not on filedocumented as of this encounter Visit Diagnoses Diagnosis Sinusitis - Primary Infection Upper Respiratory Viral documented in this encounter Care Teams Residential Remodeling Subcontractor Relationship Specialty Start Date End Date Elsewhere, Pcp PCP - General Family Medicine 01/08/18 01/12/21 documented as of this encounter
--- OUTSIDE RECORDS SUMMARY | 2022-06-22 14:03 | XMS_ITS | Encounter Summary ---
:1990 Author Organization [facility] Address [address] [place] [address] Care Team Providers Name Role Phone Elsewhere, Pcp Primary Care Provider Unavailable Reason for Referral MRI/CAT/PET Scan (Routine) - Closed Specialty Diagnoses / Procedures Referred By Contact Refer red To Contact Radiology Diagnoses Pain Cervical Esther Andrea APRN, [facility] Region Procedures CT Thoracic Spine without IV Contrast C.N.P., D.N.P. [address] [place] [address] Referral ID Status Reason Start Date Expiration Date Visits Requ ested Visits Authorized [id number] Closed 08/01/2019 07/31/2020 1 1 Reason for Visit MRI/CAT/PET Scan (Routine) - Closed Specialty Diagnoses / Procedures Referred By Contact Refer red To Contact Radiology Diagnoses Pain Cervical Emre, FATOU Santana, [facility] Procedures CT Thoracic Spine without IV Contrast C.N.P., D.N.P. [address] [place] [address] Referral ID Status Reason Start Date Expiration Date Visits Requ ested Visits Authorized [id number] Closed 08/01/2019 07/31/2020 1 1 Encounter Details Date Type Department Care Team Description 08/01/2019 Hospital Encounter Department of Radiology Eliazar Andrea, Pain Cervical [place] APRN C.N.P., [address] [facility] D.N.P. [place], [place] [address] [place] [address] [place], [place] [phone] Social History Tobacco Use Types Packs/Day [...] do you attend christian or Never 2021 episcopal services? Do you belong to any clubs [...] at Date Recorded Female 12/02/2021 5:19 PM AMMUNITION SPECIALIST documented as of this encounter Medications [...] Cervical documented in this encounter Care Teams Systems Development Consultant Relationship Specialty Start Date End Date Elsewhere, Pcp PCP - General Family Medicine 01/08/18 01/12/21 documented as of this encounter
--- OUTSIDE RECORDS SUMMARY | 2022-06-22 14:03 | XMS_ITS | Encounter Summary ---
:1990 Author Organization [facility] Address [address] [place] [address] Care Team Providers Name Role Phone Elsewhere, Pcp Primary Care Provider Unavailable Reason for Visit Reason Comments Sore Throat pt with 2 1/2 week history o f sinus congestion now presents with sore throat. Throat pain started about 4 days ago, and is getting worse every day. Encounter Details Date Type Department Care Team Description 09/22/2018 Emergency [place] [facility] Marissa Mccormack, Catie lawsonnicole Acute Department D.O. (Primary Dx) [address] [place] [phone] Social History Tobacco Use Types Packs/Day Years [...] do you attend mandaeism or Never 2021 mosque services? Do you [...] at Date Recorded Female 12/02/2021 5:19 PM GERMINATION TESTING MANAGER documented as of this encounter Last Filed Vital Signs Vital Sign Reading Time Taken Comments Blood Pressure 128/88 09/22/2018 9:00 AM GERMINATION TESTING MANAGER Pulse 88 09/22/2018 9:00 AM GERMINATION TESTING MANAGER Temperature 37.5 ??C (99.5 ??F) 09/22/2018 9:00 AM GERMINATION TESTING MANAGER Respiratory Rate 16 09/22/2018 9:00 AM GERMINATION TESTING MANAGER Oxygen Saturation 99% 09/22/2018 9:00 AM GERMINATION TESTING MANAGER Inhaled Oxygen Concentration - - Weight 71.9 kg (158 lb 8.2 oz) 09/22/2018 8:10 AM GERMINATION TESTING MANAGER Height 157 cm (5' 1.81) 09/22/2018 8:10 AM GERMINATION TESTING MANAGER Body Mass Index 29.17 09/22/2018 8:10 AM GERMINATION TESTING MANAGER documented in this encounter Discharge Instructions Discharge InstructionsBuMarissa lopez D.O. - 09/22/2018 8:59 AM CST Take the steroids daily, and take ibuprofen and/or tylenol as needed for pain. You should return to the ED for dehydration, if you are more swollen, have difficulty breathing or cannot swallow. INATION TESTING MANAGER AttachmentsThe following attachments cannot be sent through [...] Pharyngitis Acute Marissa Mccormack D.O. 09/22/18 0917 INATION TESTING MANAGER documented in this encounter Plan of Treatment Not on filedocumented as of this encounter Procedures Procedure Name Priority Date/Time Associated Diagnosis Comme nts RAPID STREP A STAT 09/22/2018 8:37 AM Results for this SCREEN GERMINATION TESTING MANAGER procedure are i n the results section. BACTERIAL CULTURE, STAT 09/22/2018 8:37 AM Res ults for this THROAT GERMINATION TESTING MANAGER procedure are i n the results section. documented in this encounter Results Bacterial Culture, Throat (09/22/2018 8:37 AM GERMINATION TESTING MANAGER) [facility] Method Time Signature Throat No growth of 09/24/2018 [facility] Culture Streptococcus 7:07 AM GERMINATION TESTING MANAGER HEALTH pyogenes [facility] LAB Specimen Anatomical Collection Method Collection Time Receive d Time (Source) Location / / Volume Laterality Throat Swab 09/22/2018 8:37 AM 8 3:28 GERMINATION TESTING MANAGER PM GERMINATION TESTING MANAGER Marissa Mccormack D.O. LAB MICROBIOLOGY - GENERAL O RDERABLES Performing Organization Address City/State/ZIP Code Phon e Number [facility] [address] [place] [address] LAB Rapid Strep A Screen (09/22/2018 8:37 AM GERMINATION TESTING MANAGER) P athologist Signature Rapid Strep A Negative Negative 09/22/2018 [facility] Screen 8:52 AM [facility] Specimen Anatomical Collection Method Collection Time Receive d Time (Source) Location / / Volume Laterality Varies (Throat) 09/22/2018 8:37 AM 2017 8:41 GERMINATION TESTING MANAGER AM GERMINATION TESTING MANAGER Marissa Mccormack D.O. LAB MICROBIOLOGY - GENERAL O RDERABLES Performing Organization Address City/State/ZIP Code Phon e Number [address] [address] [facility] documented in this encounter Visit Diagnoses Diagnosis Pharyngitis Acute - Primary documented in this encounter Care Teams School Occupational Therapist Relationship Specialty Start Date End Date Elsewhere, Pcp PCP - General Family Medicine 01/08/18 01/12/21 documented as of this encounter
--- OUTSIDE RECORDS SUMMARY | 2022-06-22 14:03 | XMS_ITS | Encounter Summary ---
:1990 Author Organization [facility] Address [address] [place] [address] Care Team Providers Name Role Phone Elsewhere, Pcp Primary Care Provider Unavailable Reason for Visit Reason Comments Nasal Congestion pt presents concerned for po ssible sinus infection. c/o of facial pain, congestion, ear pain a nd throat pain. symptoms for approx one month. denies fevers. has be en taking mucinex Encounter Details Date Type Department Care Team Description 03/28/2019 Emergency [place] [facility] Valerie Malone, Infec kori Upper Department M.DMaribell Respiratory (Primary [address] Dx) [place] [address] [phone] Social History Tobacco Use Types Packs/Day Years [...] do you attend bahai or Never 2021 rastafari services? Do you [...] Date Recorded Female 12/02/2021 5:19 PM MOBILE DESIGNER documented as of this encounter Last [...] Primary documented in this encounter Care Teams Delivery Rn Relationship Specialty Start Date End Date Elsewhere, Pcp PCP - General Family Medicine 01/08/18 01/12/21 documented as of this encounter
--- OUTSIDE RECORDS SUMMARY | 2022-06-22 14:03 | XMS_ITS | Encounter Summary ---
:1990 Author Organization [facility] Address [address] [place] [address] Care Team Providers Name Role Phone Elsewhere, Pcp Primary Care Provider Unavailable Encounter Details Date Type Department Care Team Description 01/28/2019 Hospital Encounter Department of Radiology Ben Arce M.D. Edema Leg in [place], [place] [address] [place] [phone] Social History Tobacco Use Types Packs/Day Years [...] do you attend worship or Never 2021 gnosticism services? Do you [...] Date Recorded Female 12/02/2021 5:19 PM MANAGER FUNCTIONAL documented as of this encounter Medications at [...] Leg documented in this encounter Care Teams Restuarant Crew Worker Relationship Specialty Start Date End Date Elsewhere, Pcp PCP - General Family Medicine 01/08/18 01/12/21 documented as of this encounter
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
--- OUTSIDE RECORDS SUMMARY | 2022-06-22 14:04 | XMS_ITS | Encounter Summary ---
:1990 Author Organization [facility] Address [address] [place] [address] Care Team Providers Name Role Phone Elsewhere, Pcp Primary Care Provider Unavailable Reason for Visit Reason Comments Skin Problem pt is noted to have bump i n left armpit and left groin, both are painful, denies fever or chi lls, states the leg bump popped on sunday Encounter Details Date Type Department Care Team Description 08/07/2018 Emergency [place] Emergency Bull Calderon Car buncle Of Groin (Primary Dx); Department M.D. Carbuncle Axilla Left [address] [facility] [place] [phone] Social History Tobacco Use Types Packs/Day Years [...] do you attend rastafari or Never 2021 hinduism services? Do you [...] at Date Recorded Female 12/02/2021 5:19 PM HEADLINER INSTALLER documented as of this encounter Last Filed [...] cannot be sent through Care Everywhere.Skin Abscess Wish-ej-Mekv (Kazakh)documented in this encounter Medications at Time [...] override documented in this encounter Care Teams Recordist Relationship Specialty Start Date End Date Elsewhere, Pcp PCP - General Family Medicine 01/08/18 01/12/21 documented as of this encounter
--- OUTSIDE RECORDS SUMMARY | 2022-06-22 14:04 | XMS_ITS | Encounter Summary ---
:1990 Author Organization [facility] Address [address] [place] [address] Care Team Providers Name Role Phone Unavailable Primary Care Provider Unavailable Encounter Details Date Type Department Care Team Description 06/14/2017 Hospital Encounter HX [facility] MA[facility] Essence Yin M.D. [address] [place], [place] [phone] (Wo rk) Social History [...] do you attend sikhism or Never 2021 yazidi services? 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 documented as of this encounter [...] 06/14/2017 9:06 PM CDT ED Depart Summary [facility] Emergency Department Clinical Discharge Summary PERSON INFORMATION Name DILLAN MATA Age 27 Years 1990 12:00 AM Sex Female Language Scottish PCP PCP, ELSEWHERE Marital Status Unknown Visit Id Visit Reason Foot injury - Minor; FOOT PAIN Specialty Enc Type Emergency Med Service Emergency Medicine Referred by Track Group AAKASHMonica ED Discharge 06/14/2017 7:45 PM Tracking Id [id number] Checkout 06/14/2017 7:45 PM Checkin 06/14/2017 6:17 PM Acuity 4 -Less Urgent Dispo Type * Discharged to Home or Self Care Arrival 06/14/2017 6:17 PM Reg Status LOS 000 01:28 Address: [address] [place] [phone] Comment: PROVIDER INFORMATION Provider Role Provider Contact Time CHAVA KUHN SCOOP OPERATOR Nurse 06/14/17 18:44 CHU ADKINS MD ED Provider 06/14/17 18:52 ANDREW BROCK SCOOP OPERATOR Nurse 06/14/17 19:21 DIAGNOSIS Sprain Foot Initial L Comment: PATIENT EDUCATION INFORMATION Instructions: SPRAIN FOOT Follow up: With: Address: When: Follow up with primary care in 1 week if not improving. Return to the ED for increasing pain or swelling. Within As Needed Source: [facility] POWERCHART Document Id: [id number] Andrew Brock R.N. - 06/14/2017 9:06 PM CDT ED Discharge Instructions [address] [address] Name: DILLAN MATA Date of : 1990 12:00 AM Visit Date: 06/14/2017 6:17 PM [facility] Number: [id number] Address: [address] [facility] [phone] Primary Care Provider: PCPBHARATHI IMPORTANT: [facility] in [place] would like to thank you for allowing [...] become cold, blue, numb, or tingly ?? [phone] [facility], [address] [place] [address]. All rights reserved. This information is not [...] if you dont have one. Go to [email or web address] and click on Create Your Account. Then, follow the directions to complete the online form. Youll be asked for your [facility] number which you can find [...] a ride home with a responsible libertarian. All, DILLAN MATA , or responsible libertarian have received this [...] a ride home with a responsible libertarian. I, DILLAN MATA , or responsible libertarian have received this information and my questions have been answered. I have discussed any challenges I see with this plan with the nurse or physician. Patient Signature or Responsible Alliance Party/Relationship Date Time Provider Signature Date Time This document has images extracted. Please consider using [employer] for all your patient education needs. Source: [employer] Document Id: [id number] Andrew Brock R.N. - 06/14/2017 7:45 PM CDT ED Disposition Summary ED Disposition Summary Entered On: 06/14/2017 20:33 CDT Performed On: 06/14/2017 19:45 CDT by ANDREW BROCK SCOOP OPERATOR Disposition Summary Present in Room During Exam/Procedure : Alone Mode of Discharge : Ambulatory Transportation : Private vehicle Discharge From ED With : Home Med List Printed Discharge Instructions Given to Patient : Yes Patient Status at Discharge from ED : Improved 30 Minutes Critical Care : No ANDREW BROCK RN - 06/14/2017 20:33 CDT Source: [employer] Document Id: [id number] CDT!9 documented in this encounter Medications at [...] RN - 06/14/2017 21:05 CDT [facility] Document Id: [id number] CDT!18 Andrew Brock R.N. - 06/14/2017 7:30 [...] BROCK RN - 06/14/2017 22:10 CDT Source: [facility] POWERCHART Document Id: [id number] CDT!5 Andrew Brock R.N. - 06/14/2017 7:21 [...] ANDREW BROCK RN - 06/14/2017 19:21 CDT Marshall Coma Eye Opening Response Marshall : Spontaneously Best Verbal Response Marshall : Oriented Best Motor Response Sophie : [...] RN - 06/14/2017 19:21 CDT [facility] Document Id: [id number] CDT!37 Chu Adkins M.D. - 06/14/2017 6:52 [...] Stat, Patient Bed, Once, 06/14/2017 18:53 CDT, [facility] Urology. Radiology results:* Final Report * Reason [...] Transcribed by: ROSHAN Technologist: NAYANA ESPOSITO RT(R)(CT) [id number] This document has an image Result type: XR Foot Left 3 or more views Result date: June 14, 2017 19:14 CDT Result status: Auth (Verified) Result title: XR Foot Left 3 or more views Performed by: DAVID SEPULVEDA MD on June 14, 2017 19:18 CDT Verified by: DAVID SEPULVEDA MD on June 14, 2017 19:18 CDT Encounter info: [id number], [facility], Emergency, 06/14/2017 - . [...] ADKINS MD On: 06/14/2017 07:35 PM Source: [facility] POWERCHART Document Id: {[id number]} Chava Kuhn R.N. - 06/14/2017 6:37 PM [...] PNED ; Probability: 0 ; Diagnosis Code: [id number] Triage Triage Treatments : Ice to affected [...] Ambulatory Track : Trauma Other Languages : Scottish Vital Signs Assessed : Yes Treatments Prior [...] CDT DCP GENERIC CODE Tracking Group : [facility] ED Tracking Acuity : 4 [...] Heart Rhythm : Regular Skin Color : [place] Skin Description : Normal Skin Temperature : [...] KUHN RN - 06/14/2017 18:37 CDT Source: [facility] [employer] Document Id: [id number] CDT!3 documented in this encounter Miscellaneous Notes Miscellaneous - Andrew Brock RHarish - 06/14/2017 7:45 PM CDT Valuables/Belongings Valuables/Belongings Entered On: 06/14/2017 20:33 CDT Performed On: 06/14/2017 19:45 CDT by ANDREW BROCK RN Valuables/Belongings Belongings Sent Home With : All sent w/pt at d/c Home Medication Disposition : None brought in with patient ANDREW BROCK RN - 06/14/2017 20:32 CDT Source: [employer] Document Id: [id number] CDT!4 Miscellaneous - Conversion, Historical Provider Ser - 06/14/2017 7:45 PM CDT Coding Summary-Paper Based CODING DATE: 06/26/2017 FINAL AAKASH [place] [facility] STATUS: * Discharged to Home [...] LORD Date Saved: 06/26/2017 09:17 am Source: [employer] Document Id: [id number] documented in this encounter Plan of Treatment [...]
--- OUTSIDE RECORDS SUMMARY | 2022-06-22 14:04 | XMS_ITS | Encounter Summary ---
:1990 Author Organization [facility] Address [address] [place] [address] Care Team Providers Name Role Phone Elsewhere, Pcp Primary Care Provider Unavailable Reason for Visit Reason Comments Headache frontal and middle of head Earache Cipriano ear pain Sore Throat drainage Sinus Problem over 1 month Encounter Details Date Type Department Care Team Description 01/07/2018 Office Visit Express [facility] in [facility] [place], [place] FATOU Samuel, C.N.P., (Primary Dx) [address] [place] [address] Social History Tobacco Use Types Packs/Day Years [...] do you attend zoroastrian or Never 2021 catholic services? 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 She works at [employer] with several people throughout theday. She has [...] Primary documented in this encounter Care Teams Shoe Planner Relationship Specialty Start Date End Date Elsewhere, Pcp PCP - General Family Medicine 01/08/18 01/12/21 documented as of this encounter
--- OUTSIDE RECORDS SUMMARY | 2022-06-22 14:04 | XMS_ITS | Encounter Summary ---
:1990 Author Organization [facility] Address [address] [place] [address] Care Team Providers Name Role Phone Elsewhere, Pcp Primary Care Provider Unavailable Reason for Visit Reason Comments Sinus Symptoms 3 wks ago; started with ST, then ears and facial pressure. Pt using NetiPot. Sore Throat strep exposure at work Encounter Details Date Type Department Care Team Description 05/08/2018 Office Visit Express Care in [facility] Arely Ferrell Sinu sitis [place], [place] SCOOP DRIVER, C.N.P. (Primary Dx) [address] [place] [phone] Social History Tobacco Use Types Packs/Day Years [...] do you attend nondenominational or Never 2021 uatsdin services? 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 Recently moved to [place]. REVIEW OF SYSTEMS Constitutional: Negative for fever. [...] Primary documented in this encounter Care Teams Trash Collector Truck Driver Relationship Specialty Start Date End Date Elsewhere, Pcp PCP - General Family Medicine 01/08/18 01/12/21 documented as of this encounter
--- OUTSIDE RECORDS SUMMARY | 2022-06-22 14:04 | XMS_ITS | Encounter Summary ---
:1990 Author Organization [facility] Address [address] [place] [address] Care Team Providers Name Role Phone Unavailable Primary Care Provider Unavailable Encounter Details Date Type Department Care Team Description 01/15/2017 Hospital Encounter HX [facility] MAPérezN Felix Guillen M.D. [address] [place], [place] [address] (Wo rk) Social History [...] do you attend cheondoism or Never 2021 taoist services? 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 [address] Name: DILLAN MATA Date of : 1990 12:00 AM Visit Date: 01/15/2017 7:46 PM [facility] Number: [id number] Address: [address] [place] [id number] Primary Care Provider: PCP, BHARATHI IMPORTANT: [facility] in [place] would like to thank you for allowing [...] becomes cold, blue, numb or tingly ?? [phone] [facility], [address] [place] [address], [place] [address]. All rights reserved. This information is not [...] if you dont have one. Go to [email or web address] and click on Create Your Account. Then, follow the directions to complete the online form. Youll be asked for your [facility] number which you can find at [...] arrange a ride home with a responsible alliance party. LARISSA Carrizales KALLIE , or responsible alliance party have received this information and my [...] arrange a ride home with a responsible alliance party. LARISSA Carrizales KALLIE or responsible alliance party have received this information and my questions have been answered. I have discussed any challenges I see with this plan with the nurse or physician. Patient Signature or Responsible Libertarian/Relationship Date Time Provider Signature Date Time Source: [employer] Document Id: [id number] Angelica Sandra R.N. - 01/15/2017 11:20 PM CDT ED Depart Summary [facility] Emergency Department Clinical Discharge Summary PERSON INFORMATION Name DILLAN MATA Age 26 Years 1990 12:00 AM Sex Female Language Romansh PCP PCP, ELSEWHERE Marital Status Unknown Visit Id Visit Reason Hand pain-swelling; SWOLLEN RIGHT HAND Specialty Enc Type Emergency Med Service Emergency Medicine Referred by Track Group MAQN ED Discharge 01/15/2017 11:10 PM Tracking Id [id number] Checkout 01/15/2017 11:10 PM Checkin 01/15/2017 7:46 PM Acuity 4 -Less Urgent Dispo Type * Discharged to Home or Self Care Arrival 01/15/2017 7:46 PM Reg Status LOS 000 03:24 Address: [address] [place] [address] Comment: PROVIDER INFORMATION Provider Role Provider Contact Time ANGELICA SANDRA ED Nurse 01/15/17 19:57 NIKOS MENDEZ MD ED Provider 01/15/17 20:09 DIAGNOSIS Contusion Hand Initial R Comment: PATIENT EDUCATION INFORMATION Instructions: CONTUSION, Hand Follow up: With: Address: When: Follow up with primary care provider Within As Needed Comments: Call for follow up appointment. If symptoms worsen. Source: [facility] POWERCHART Document Id: [id number] documented in this encounter Medications at Time [...] ANGELICA SANDRA - 01/15/2017 23:19 CDT Source: [employer] Document Id: [id number] CDT!9 Angelica Sandra R.N. - 01/15/2017 11:05 [...] ANGELICA SANDRA - 01/15/2017 23:19 CDT Source: [employer] Document Id: [id number] CDT!9 Angelica Sandra R.N. - 01/15/2017 11:02 [...] Motor Response Sophie : Obeys simple commands Wiggins Coma Score : 15 ANGELICA SANDRA 01/15/2017 23:02 CDT GI Reassess GI Patient Stated Symptoms : None ANGELICA SANDRA - 01/15/2017 23:02 CDT /OB Reassess Patient Stated Symptoms : None ANGELICA SANDRA - 01/15/2017 23:02 CDT Source: [employer] Document Id: [id number] CDT!34 Kim Bartholomew R.N. - 01/15/2017 10:00 [...] Brenda RN - 01/15/2017 22:00 CDT Source: [employer] Document Id: [id number] CDT!15 Nikos Mendez M.D. - 01/15/2017 9:52 PM CDT Hand pain-swelling Patient: DILALN MATA Age: 26 years Sex: Female : [...] Stat, Patient Bed, Once, 01/15/2017 21:53 CDT, [facility] Urology. Radiology results:Emergency physician interpretation: Creator: Nikos Mendez Date: Jan 15, 2017 23:04:53 Subject: Preliminary ER Physician Findings (preliminary only - not final):Three-view x-ray of the right hand: Negative for fracture or dislocation. Brant Cortes Impression and Plan Diagnosis Contusion Hand Initial R (Discharge, Emergency medicine, Medical) Plan Condition: Stable. Disposition: Discharged: Time 01/15/2017 23:05:00, to home. Prescriptions: Prescription Maintenance Director Pharmacy: ibuprofen 200 mg oral tablet (Prescribe): [...] MENDEZ MD On: 01/15/2017 11:07 PM Source: [facility] POWERCHART Document Id: [id number]} Angelica Sandra R.N. - 01/15/2017 8:55 PM [...] Response Sophie : Oriented Best Motor Response Wiggins : Obeys simple commands Sophie Coma Score : 15 ANGELICA SANDRA 01/15/2017 20:55 CDT GI Reassess GI Patient Stated Symptoms : None ANGELICA SANDRA 01/15/2017 20:55 CDT Source: [facility] POWERCHART Document Id: [id number] CDT!3 Angelica Sandra R.N. - 01/15/2017 7:51 [...] PNED ; Probability: 0 ; Diagnosis Code: [id number] Triage Chief Complaint Description : Pt presents [...] vehicle, Ambulatory Track : Medical Languages : Romansh Vital Signs Assessed : Yes GCS Assessed [...] kg/m2 ANGELICA SANDRA - 01/15/2017 19:51 CDT Wiggins Coma Eye Opening Response Wiggins : Spontaneously Best Verbal Response Wiggins : Oriented Best Motor Response Wiggins : Obeys simple commands Sophie Coma Score : 15 ANGELIAC SANDRA - 01/15/2017 19:51 CDT Pain Assessment [...] None ANGELICA SANDRA 01/15/2017 19:51 CDT Source: [employer] Document Id: [id number] CDT!117 documented in this encounter Miscellaneous Notes Miscellaneous - Conversion, Historical Provider Ser - 01/15/2017 11:10 PM CDT Coding Summary-Paper Based CODING DATE: 01/22/2017 FINAL [facility] STATUS: * Discharged to Home or Self [...] DUONG Date Saved: 01/22/2017 10:08 am Source: [employer] Document Id: [id number] Miscellaneous - Angelica Sandra RMaribellN. - 01/15/2017 11:05 PM CDT Valuables/Belongings Valuables/Belongings Entered On: 01/15/2017 23:20 CDT Performed On: 01/15/2017 23:05 CDT by ANGELICA SANDRA Valuables/Belongings Belongings Sent Home With : all belongings sent home with patient ANGELICA SANDRA - 01/15/2017 23:20 CDT Source: [employer] Document Id: [id number] CDT!3 documented in this encounter Plan of [...] report. Nikos Flores R.T.(R)(CT), R.T.(R) IMG DIAGNOSTIC MARILN GING PROCEDURES documented in this encounter Visit Diagnoses Not on filedocumented in this encounter
== END 2022-06-22 13:58 | disposition home or self-care (01) ==
LOC: US 13:58
PROVIDERS: Visit Provider Obstetrics & Gynecology
DX: O13.3 Gestational [pregnancy-induced] hypertension without significant proteinuria, third trimester (principal); Z3A.34 34 weeks gestation of pregnancy
CPT/HCPCS: 76816; 76819

== ENCOUNTER 2022-06-28 07:19 | Outpatient (CLI) | payer MEDICAID, SELFPAY ==
--- NOTE | 2022-06-28 07:15 | CRLHL7_ITS ---
For Patients: As a result of the Century Cures Act, medical imaging exams and procedure reports are released immediately into your electronic medical record. You may view this report before your referring provider. If you have questions, please contact your health care provider. INDICATION: gestational hypertension COMPARISON: 06.22.22 TECHNIQUE: Real time norton scale imaging of the fetus was performed. Without non-stress testing. FINDINGS: Sonographic imaging demonstrates a single living intrauterine gestation. Fetus demonstrates a regular cardiac rate of 148 beats per minute. Fetus has a dayana breech position. The amniotic fluid volume appears normal and there is a single deepest pocket measurement of 5.0 cm. The fetus was active and demonstrated normal breathing movements. There was normal flexion and extension of the trunk and extremities. IMPRESSION: Normal biophysical profile score of 8 out of 8. Dictated by Pawel Sanchez MD @ 06/28/2022 10:20:49 AM (Electronically Signed)
--- OUTSIDE RECORDS SUMMARY | 2022-06-28 07:22 | XMS_ITS | Clinical Summary ---
:1990 [facility] Address [address], [place] [address] Care Team Providers Name Role Phone Heydi Santana PA-C Primary Care Provider [phone] Source Comments You are receiving this [...] for each transition of care or referral. 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 Inhaled Oxygen Concentration - - Weight 68.5 kg (151 lb) 06/22/2022 5:04 PM patient repo rted CDT Height - - Body Mass Index - - Plan of Treatment Upcoming Encounters Date Type Specialty Care Team Description 06/30/2022 Telemedicine Diabetes Program Yahaira Arrieta RD N, LD, [facility] [address] [facility] N [phone] (Wo rk) 07/14/2022 Telemedicine Diabetes Program Yahaira Arrieta RD N, LD, [facility] [address] [facility] N [phone] (Wo rk) Health Maintenance Due Date Last [...] patient 's age to complete this topic Care Teams Kitchen Aide Relationship Specialty Start Date End Date Heydi Santana PA-C PCP - General 11/14/10 [address] [place] [id number]
--- OUTSIDE RECORDS SUMMARY | 2022-06-28 07:22 | XMS_ITS | Encounter Summary ---
:1990 Author Organization [employer] Address [address], [place] [address] Care Team Providers Name Role Phone Heydi Santana PA-C Primary Care Provider [phone] Encounter Details Date Type Department Care Team Description 06/22/2022 Telemedicine [facility] [address] [facility] diabetes Endocrinology MD Reji mellitus (GDM), 3800 [facility] 38[address] [facility] ant epartum, Bl[address]. Blvd gestational diabetes [facility] thod of control [phone] unspecified (Primary [phone] (Wo rk) Dx) Social History Tobacco Use [...] female seen in consultation, referred by OBGYN. [facility] in [place], [place]. Planning to deliver at [facility]. Currently at 32 weeks and [...] condition Both parents have hyperlipidemia. Works at [employer] Plans to work until close to due date. 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 Normal sensation in all 4 [...] Patient will meet with Diabetes Education and Professor Of Business after this visit today for instructions as [...] Arrieta RD N, LD, CDCES [address] [facility] N [id number] (Wo rk) 07/14/2022 Telemedicine Diabetes Program Yahaira Arrieta RD N, PAVAN, CDCES [address] [facility] [facility] N [id number] (Wo rk) documented as of this encounter Visit Diagnoses Diagnosis Gestational diabetes mellitus (GDM), ant epartum, gestational diabetes method of control unspecified - Primary documented in this encounter Care Teams Shop Worker Relationship Specialty Start Date End Date Heydi Santana PA-C PCP - General 11/14/10 [address] [place] [address] documented as of this encounter
--- OUTSIDE RECORDS SUMMARY | 2022-06-28 07:23 | XMS_ITS | Encounter Summary ---
:1990 Author Organization [facility] Address [address] [place] [address] Care Team Providers Name Role Phone Max Heydi Jaquelin RENNER Primary Care Provider [phone] Encounter Details Date Type Department Care Team Description 10/04/2004 PN Conversion Only PRIOR COOL CONVERSIO N Patito Jorge, [address] GEOLOGY ASSOCIATE, HEARING DOG TRAINER [address] [place] [address] [address] [place], [place] [address] Social History Tobacco Use Types Packs/Day Years Used Date Smoking Tobacco: Never Assessed Sex Assigned at Date Recorded Not on file documented as of this encounter Plan of Treatment Upcoming Encounters Date Type Specialty Care Team Description 06/30/2022 Telemedicine Diabetes Program Yahaira Arrieta RD N, LD, CDCES [address] [facility] N [id number] (Wo rk) 07/14/2022 Telemedicine Diabetes Program Yahaira Arrieta RD N, LD, CDCES [address] [facility] N [id number] (Wo rk) documented as of this encounter Procedures Procedure Name Priority Date/Time Associated Diagnosis Comme nts STREP GROUP A Routine 10/04/2004 3:11 PM Results for this ANTIGEN TEST DIRECTOR DIGITAL COMMUNICATIONS procedure are i n the results section. BETA STREP FOLLOWUP Routine 10/04/2004 3:11 PM Re sults for this DIRECTOR DIGITAL COMMUNICATIONS procedure are i n the results section. documented in this encounter Results Strep Group A Antigen Test (10/04/2004 3:11 PM DIRECTOR DIGITAL COMMUNICATIONS) Analysis Performed At Patho logist Time Signature Strep Group A Negative Negative [facility] CONVERSION Antigen Test Comment: Culture to follow. Specimen (Source) Anatomical Collection Method Collection Time Re ceived Time Location / / Volume Laterality 10/04/2004 3:11 PM DIRECTOR DIGITAL COMMUNICATIONS Patito Jorge APRN, HEARING DOG TRAINER LAB_1 Performing Organization Address City/State/ZIP Code Phon e Number [facility] CONVERSION Beta Strep Followup (10/04/2004 3:11 PM DIRECTOR DIGITAL COMMUNICATIONS) P athologist Signature Strep Screen SEE TEXT [facility] CONVERSION Comment: Patient: DILLAN MATA Rapid Strep Follow up Culture @ ? Collected: ??[id number] ??[id number] Source: Throat ?Processed: ??[id number] ??1512 Final Report ------ ?[id number] ??1028 No beta hemolytic Strep group A isolated . @ = Rapid F/U Cult Performed at ??[address] [facility] [place], [place] ?[address] Specimen (Source) Anatomical Collection Method Collection Time Re ceived Time Location / / Volume Laterality 10/04/2004 3:11 PM DIRECTOR DIGITAL COMMUNICATIONS Patito A Jorge GEOLOGY ASSOCIATE, HEARING DOG TRAINER LAB_1 Performing Organization Address City/State/ZIP Code Phon e Number [facility] CONVERSION documented in this encounter Visit Diagnoses Not on filedocumented in this encounter Care Teams Respiratory Therapy Instructor Relationship Specialty Start Date End Date Heydi Santana PA-C PCP - General 11/14/10 [address] [place] [address] documented as of this encounter
--- OUTSIDE RECORDS SUMMARY | 2022-06-28 07:23 | XMS_ITS | Encounter Summary ---
:1990 Author Organization [employer] Address [address] [place] [address] Care Team Providers Name Role Phone Max Heydi Jaquelin RENNER Primary Care Provider [phone] Reason for Visit Reason Comments Sore Throat Encounter Details Date Type Department Care Team Description 02/11/2011 [facility] Visit [facility] (Primary Dx) [address] [phone] Social History Tobacco Use [...] culture obtained. ASSESSMENT: Pharyngitis. PLAN: Symptomatic care. Kaof-sqa-xxxqjab Tylenol or ibuprofen 4 times a day [...] [address] Jose CARREON N [id number] (Wo rk) 07/14/2022 Telemedicine Diabetes Program Yahaira Arrieta, NATANAEL N, LD, CDCES [address] Jose CARREON N [id number] (Wo rk) documented as of this encounter [...] THROAT CULTURE ONLY (02/11/2011 3:33 PM CDT) Ernie's Method Time Signature Grp A Culture Negative NEG [facility] Final Specimen Anatomical Collection Method Collection Time Receive d Time (Source) Location / / Volume Laterality 02/11/2011 3:33 PM 1 3:57 CDT PM CDT Belkis Sanchez APRN, CNP LAB_1 Performing Organization Address [facility] Phon e Number [employer] [place] [phone] [facility] [address] [place] [phone] STREP GRP A, RAPID SCREEN (02/11/2011 3:33 PM CDT) Ernie's Method Time Signature Grp A Rapid Negative NEG [facility] Screen Specimen Anatomical Collection Method Collection Time Receive d Time (Source) Location / / Volume Laterality 02/11/2011 3:33 PM 1 3:57 CDT PM CDT Belkis Sanchez APRN COMPUTER NETWORK ENGINEER LAB_1 Performing Organization Address City/[facility] Phon e Number [employer] [place] [phone] [facility] [address] [phone] documented in this encounter Visit Diagnoses Diagnosis Sore throat - Primary Acute pharyngitis documented in this encounter Care Teams Shell Freezing Machine Operator Relationship Specialty Start Date End Date Heydi Santana PA-C PCP - General 11/14/10 [address] [place] [address] documented as of this encounter
--- OUTSIDE RECORDS SUMMARY | 2022-06-28 07:23 | XMS_ITS | Encounter Summary ---
:1990 Author Organization [employer] Address [address] [address] Care Team Providers Name Role Phone Heydi Santana PA-C Primary Care Provider Reason for Visit Reason Comments Other Encounter Details Date Type Department Care Team Description 06/22/2022 Telephone [facility] [address] Celina Deleon PA-C Other Endocrinology [address] [place] [address] [place] [address] [phone] Social History Tobacco Use Types Packs/Day Years [...] CDCES [address] Jose CARREON N [id number] (Wo rk) 07/14/2022 Telemedicine Diabetes Program Yahaira Arrieta RD N, LD, [facility] [address] Jose [place]REON N [id number] (Wo rk) documented as of this encounter Visit Diagnoses Not on filedocumented in this encounter Care Teams Cisco Network Architect Relationship Specialty Start Date End Date Heydi Santana PA-C PCP - General 11/14/10 [address] [place] [address] documented as of this encounter
--- OUTSIDE RECORDS SUMMARY | 2022-06-28 07:23 | XMS_ITS | Encounter Summary ---
:1990 Author Organization [employer] Address [address], [place] [address] Care Team Providers Name Role Phone Heydi Santana PA-C Primary Care Provider [phone] Reason for Visit Reason Comments FOLLOW-UP,DIABETES Encounter Details Date Type Department Care Team Description 06/22/2022 Telemedicine [facility] [address] Celina Deleon PA-C Gestational diabetes Endocrinology [address] [place] mellitus (GDM), [address] antepartum, [address] [place], [place] [address] method of control [id number] unspecified (Primary [phone] Dx) Social History Tobacco Use Types Packs/Day [...] from the original note were not included. [facility]: [address] [place] [address] [phone], Nurse Line: [phone] Gestational Diabetes Visit Note June 22, 2022 [...] Program Yahaira Arrieta RD N, LD, CDCES [address] [facility] RYLEE N [id number] (Wo rk) 07/14/2022 Telemedicine Diabetes Program Yahaira Arrieta RD N, LD, [facility] [address] [facility] N [id number] (Wo rk) documented as of this encounter Visit Diagnoses Diagnosis Gestational diabetes mellitus (GDM), ant epartum, gestational diabetes method of control unspecified - Primary documented in this encounter Care Teams Production Internship Relationship Specialty Start Date End Date Heydi Santana PA-C PCP - General 11/14/10 [address] [place] [address] documented as of this encounter
--- OUTSIDE RECORDS SUMMARY | 2022-06-28 07:23 | XMS_ITS | Encounter Summary ---
:1990 Author Organization [facility] Address [address] [place] [address] Care Team Providers Name Role Phone Unassigned, Provider Primary Care Provider Unavailable Reason for Visit Reason Comments EXAM,ROUTINE With glasses, no problems, l azy right eye Encounter Details Date Type Department Care Team Description 09/06/2009 Office Visit [facility] ConsoerYunior, Examination of Eyes and Visi on (Primary Dx); [address] OD Refractive Amblyopia; [place], [place] [address] Monocular Exotropia; [phone] Myopia; Unspecified Ast igmatism Social History Tobacco Use Types Packs/Day Years Used Date Smoking Tobacco: Never Assessed Sex Assigned at Date Recorded Not on file documented as of this encounter Patient Instructions Patient InstructionsConsoerYunior - 09/06/2009 12:08 PM CST Thank you for choosing [facility] for your eye care needs. Many tests [...] the clinic in the future? Appointment Center: [phone] Eye Dept: [phone] Online Services: [email or web address] For after hours care, call the CareLine at [phone] or . We look forward to taking [...] lenses. Sometimes surgery is needed or desirable. UP ADMINISTRATIVE COORDINATOR documented in this encounter Progress Notes Yunior Galicia - 09/06/2009 12:08 PM CST HPI Chief Complaint Patient presents with ??? EXAM,ROUTINE With glasses, no problems, lazy right eye History Reviewed Assessment Myopia Astigmatism Amblyopia Exotropia Plan Spectacle Prescription given Return to clinic in 1 year(s) for REE. Arvin Galicia, OD UP ADMINISTRATIVE COORDINATOR documented in this encounter Plan of Treatment Upcoming Encounters Date Type Specialty Care Team Description 06/30/2022 Telemedicine Diabetes Program Yahaira Arrieta, NATANAEL N, LD, CDCES [address] [facility] [address] [facility] N [id number] (Wo rk) 07/14/2022 Telemedicine Diabetes Program Yahaira Arrieta, NATANAEL N, LD, CDCES [address] [facility] [address] [facility] N [id number] (Wo rk) documented as of this encounter Visit Diagnoses Diagnosis Examination of eyes and vision - Primary Refractive amblyopia Monocular exotropia Myopia Astigmatism, unspecified documented in this encounter Care Teams Telephone Station Repairer Relationship Specialty Start Date End Date Unassigned, Provider PCP - General 08/17/09 01/16/[address] [place] [address] documented as of this encounter
--- OUTSIDE RECORDS SUMMARY | 2022-06-28 07:23 | XMS_ITS | Clinical Summary ---
:1990 Author Organization [facility] Address [address] [place] [address] Care Team Providers Name Role Phone Ben Arce M.D. Primary Care Provider Source Comments Patient records contain information from all sites at [facility]. For routine questions regarding patient records, call [phone] during business hours, M-F 8:00 AM - 5:00 PM Central Time. Record requests for emergency care only can be directed to [phone] at any time.[facility] Allergies Active Allergy Reactions Severity Noted Date Comments Olney Pollen Itching, Wheezing 04/17/2022 Medications Medication Sig [...] COVID complete but needs b ooster/Flu declines Executive Cyber Leader: Pap NIL w/ neg HPV 11/2021 Aneuploidy [...] told me she is transferr ing to [place] because it is closer. History Of Falling [...] Supervision Of Normal Pregnanc y Unspecified Trimester ([facility]) 04/18/2022 Routine Obstetrics and Rylie Mcdowell, 23 Weeks Gestation Gynecology MGonzalez ([facility]) (Primary Dx) 04/17/2022 Hospital Encounter Labor and Delivery Rylie Mcdowell, 23 Weeks Gestation Minoo (HCC) 03/31/2022 Hospital Encounter Laboratory Medicine Cheikh Gautam High Risk Minoo Garcia ([facility]) from Last 3 Months Immunizations Name Administration [...] do you attend christian or Never 2021 restorationism services? Do you [...] Date Recorded Female 12/02/2021 5:19 PM CURRICULUM CONSULTANT Last Filed Vital Signs Vital Sign Reading [...] this topic Medical Devices Implanted Type Area Tester/Lift Trucker Device Shelf Model / Identifier Expiration Serial / Date Lot Gynecologic Gynecologic Left: Other Other Arm Procedures Procedure Name Priority Date/Time Associated Comments Diagnosis GLUCOSE POCT, B Routine 06/12/2022 10:50 Results for this AM CDT procedure are i n the results section. URINALYSIS WITH Timed 04/28/2022 9:09 Results f or this MICROSCOPIC AM CDT procedure are i n the results section. IFLU A, B, SARS COV-2, Routine 04/28/2022 8:48 Re sults for this PCR, RAPID,V AM CDT procedure are i n the results section. PROTEIN/CREATININE Routine 03/31/2022 5:34 High Risk Result s for this RATIO, RANDOM, URINE PM CDT (HCC) proc edure are in the results section. [...] procedure ar e in the results section. from Last 3 Months Results Glucose, POCT [...] Code Phon e Number [facility]- [address] [place], [place] [address] [facility] NPRG [facility] [place] [address] (ABNORMAL) Urinalysis with Microscopic: Urine, Midstream (04/28/2022 9:09 AM CDT) Analysis Performed At [facility] Time Signature Source Urine, Urine, 04/28/2022 [...] 8.0 04/28/2022 11:36 AM CDT NPRG Specific Sophia 1.015 1.001 - 1.035 04/28/2022 11:36 AM [...] Code Phon e Number [facility]- [address] [place], [place] [address] [place] [address] [facility] [address] [place] Influenza A/B, SARS CoV-2, PCR, Rapid, Varies (04/28/2022 8:48 AM CDT) [facility] Method Time Signature Influenza A, Negative Negative 04/28/2022 NPRG PCR, Rapid, V 9:26 AM CDT Influenza B, Negative Negative 04/28/2022 NPRG PCR, Rapid, V 9:26 AM CDT SARS CoV-2, Undetected Undetected 04/28/2022 NPRG PCR, Rapid, V 9:26 AM CDT Comment: ----ADDITIONAL INFORMATION---- This RT-PCR test was performed using the Carissa SARS-CoV-2 and Influenza A/B Reagent assay from [employer], which has received Emergency Use Authori zation(EUA) by the U.S. Food and Drug Administration . Fact sheets for this Emergency Use Autho rization (EUA) assay can be found at the following link s: For Healthcare Providers: https://www.fda.gov/media/941472/downloa d For Patients: https://www.fda.gov/media/793490/downloa d Infl A/B, SARS CoV-2, PCR, Source Swab, Nasopharynx 04/28/2022 9:02 AM CDT NPRG Specimen Anatomical Collection Method Collection Time Receive d Time (Source) Location / / Volume Laterality Varies 04/28/2022 8:48 AM 2 9:02 CDT AM CDT Rylie Mcdowell M.D. LAB MICROBIOLOGY - GENERAL O RDERABLES Performing Organization Address City/State/ZIP Code Phon e Number [address] [address] [place] [address] Protein/Creatinine Ratio, Random, Urine (03/31/2022 5:34 [...] M.D. LAB URINE ORDERABLES Performing Organization Address City/[facility]/ZIP Code Phon e Number [place] [address] [address] [place] [address] ALT (Alanine Aminotransferase) (03/31/2022 5:31 PM CDT) Patholo gist Method Time Signature Alanine 10 7 - 45 03/31/2022 NPRG Aminotransferase U/L 5:59 PM CDT (ALT), P Specimen Anatomical Collection Method Collection Time Receive d Time (Source) Location / / Volume Laterality Blood (Blood, 03/31/2022 5:31 PM 03/31/20 22 5:34 Venous) CDT PM CDT Cheikh Gautam M.D. LAB BLOOD ADD-ON Performing Organization Address City/[facility]/ZIP Code Phon e Number [address] [address] [facility] [place] [address] AST (Aspartate Aminotransferase) (03/31/2022 5:31 [...] Organization Address City/State/ZIP Code Phon e Number [address] [address] [facility] NPRG [place] [phone] [address] (ABNORMAL) Creatinine with Estimated GFR (03/31/2022 5:31 PM CDT) Analysis Performed At Path logist Time Signature Creatinine 0.58 (L) 0.59 - 03/31/2022 NPRG 1.04 mg/dL 5:59 PM CDT eGFR-Black/Afri >90 >=60 03/31/2022 NPRG can Lebanese mL/min/BSA 5:59 PM CDT Comment: ----ADDITIONAL INFORMATION---- [...] Organization Address City/State/ZIP Code Phon e Number [address] [address] [facility] NPRG [place] [id number] Hospital [address] from Last 3 Months Insurance Payer Benefit Plan / Subscriber ID Effective Phone Address T ype Group Dates EMPLOYERS EMPLOYERS [id number] 2019-Pres [phone] n[address] INSURANCE INSURANCE ent [phone] [place] [address] [facility] [employer] [id number] 2022-Pres [phone] [address] HMO ent 225 [place] [address] Lulu Mata Workers Comp Self [address] (Home) [place] [address] Lulu Mata Third Democrat Self [address] Liability (Home) [place] [address] Care Teams Tubing Mill Setter Relationship Specialty Start Date End Date Ben Arce M.D. PCP - General Family Medicine 01/13/[address] [place] [address]
--- OUTSIDE RECORDS SUMMARY | 2022-06-28 07:23 | XMS_ITS | Encounter Summary ---
:1990 Author Organization [facility] Address [address] [place] [address] Care Team Providers Name Role Phone Joel Anguiano MD Primary Care Provider Reason for Visit Reason Comments Ear Pain SORE THROAT, HEADACHE Encounter Details Date Type Department Care Team Description 03/11/2010 Office Visit [facility] Benjamin Zuniga i, MD Acute Sinusitis, Unspecified (Primary Dx ); Medicine [address] Reactive Airway Disease [address] [place], [place] [address] [phone] Social History Tobacco Use Types Packs/Day Years [...] as needed for pain or acetaminophen 325 [id number] mg every four hours. To thin and wash out thick mucus and soothe inflamed nasal tissues use salt water (saline) nasal spray (such as Brooks). Two sprays each side, wait 20 to [...] designed for nasal irrigation - purchase from [employer] or [employer]) in a similar manner described above. This is the easiest and most comfortable method. Use saline nasal irrigation once a day to maintain health of the nasal passages, and two or more times a day for active treatment of symptoms. With a little practice, this technique becomes almost as quick and easy as brushing your teeth. ?? 2001 [employer]. documented in this encounter Progress Notes Rox [...] Yahaira Arrieta, NATANAEL N, LD, CDCES 3800 [facility] N [id number] (Wo rk) 07/14/2022 Telemedicine Diabetes Program Yahaira Arrieta RD N, LD, CDCES 3800 [facility] N [address] (Wo rk) documented as of this encounter Visit Diagnoses Diagnosis Acute sinusitis, unspecified - Primary Reactive airway disease (HRC) Unspecified asthma documented in this encounter Care Teams Supervisor Lens Generating Relationship Specialty Start Date End Date Joel Anguiano MD PCP - General 01/17/10 11/13/10 [address] [place] [address] documented as of this encounter
--- OUTSIDE RECORDS SUMMARY | 2022-06-28 07:23 | XMS_ITS | Encounter Summary ---
:1990 Author [facility] Address [address] [address] Care Team Providers Name Role Phone Heydi Santana PA-C Primary Care Provider [phone] Encounter Details Date Type Department Care Team Description 11/13/2003 PN Conversion Only [place] CONVERSION [address] [place] [address] Social History Tobacco Use Types Packs/Day Years Used Date Smoking Tobacco: Never Assessed Sex Assigned at Date Recorded Not on file documented as of this encounter Plan of Treatment Upcoming Encounters Date Type Specialty Care Team Description 06/30/2022 Telemedicine Diabetes Program Yahaira Arrieta RD N, LD, [facility] 3800 [facility] N [id number] (Wo rk) 07/14/2022 Telemedicine Diabetes Program Yahaira Arrieta RD N, LD, [facility] 3800 [facility] ET [facility] N [address] (Wo rk) documented as of this encounter Visit Diagnoses Not on filedocumented in this encounter Care Teams Daycare Worker Relationship Specialty Start Date End Date Heydi Santana PA-C PCP - General 11/14/10 [address] [place], [place] [address] documented as of this encounter
--- OUTSIDE RECORDS SUMMARY | 2022-06-28 07:23 | XMS_ITS | Encounter Summary ---
:1990 Author Organization [facility] Address [address] [place] [address] Care Team Providers Name Role Phone Joel Anguiano MD Primary Care Provider Reason for Visit Reason Comments CONGESTION, NASAL Sore Throat EARACHE Encounter Details Date Type Department Care Team Description 04/30/2010 Office Visit [facility] Apple Sore roat (Primary Dx); [place] URI (Upper Respiratory Infec tion) [address] [place], [place] [address] Social History Tobacco Use [...] Diabetes Program Yahaira Arrieta, NATANAEL N, LD, [facility] [address] [facility] [id number] (Wo rk) 07/14/2022 Telemedicine Diabetes Program Yahaira Arrieta RD N, LD, [facility] [address] [facility] [id number] (Wo rk) documented as of this encounter [...] THROAT CULTURE ONLY (04/30/2010 12:27 PM CDT) [employer] gist Method Time Signature Grp A Culture Negative [facility]G [facility] Final Specimen Anatomical Collection Method Collection Time Receive d Time (Source) Location / / Volume Laterality 04/30/2010 12:27 04/30/2010 PM CDT 12:35 PM CDT Alycia Hernadez MD LAB_1 Performing Organization Address City/[facility] Phon e Number [facility] [phone] [facility] [address] [place] [phone] STREP GRP A, RAPID SCREEN (04/30/2010 12:27 PM CDT) [facility] [employer] Method Time Signature Grp A Rapid Negative [facility]G [facility] Screen Specimen Anatomical Collection Method Collection Time Receive d Time (Source) Location / / Volume Laterality 04/30/2010 12:27 04/30/2010 PM CDT 12:35 PM CDT Alycia Hernadez MD LAB_1 Performing Organization Address City/[facility] Phon e Number [facility] [phone] [phone] documented in this encounter Visit Diagnoses Diagnosis Sore throat - Primary Acute pharyngitis URI (upper respiratory infection) Acute upper respiratory infections of un specified site documented in this encounter Care Teams Airline Lounge Receptionist Relationship Specialty Start Date End Date Joel Anguiano MD PCP - General 01/17/10 11/13/10 [address] [place] [address] documented as of this encounter
--- OUTSIDE RECORDS SUMMARY | 2022-06-28 07:23 | XMS_ITS | Encounter Summary ---
:1990 Author Organization [employer] Address [address] [place] [address] Care Team Providers Name Role Phone Joel Anguiano MD Primary Care Provider Reason for Visit Reason Comments CONTROL COUNSELING Encounter Details Date Type Department Care Team Description 09/27/[address] [facility] Candy Perez control Practice AZURDO (Primary Dx) [address] [place] [address] [facility] [place], [place] [address] S [phone] [place] [address] Social History Tobacco Use Types Packs/Day Years Used Date Smoking Tobacco: Never Alcohol Use Standard Drinks/Week Comments No 0 (1 standard drink = 0.6 oz pure alcoho l) Sex Assigned at Date Recorded Not on file documented as of this encounter Last Filed Vital Signs Vital Sign Reading Time Taken Comments Blood Pressure 110/82 09/27/2010 9:16 AM COMMUNITY HEALTH ADVOCATE Pulse 76 09/27/2010 9:16 AM [facility] HE[facility] AD[facility] Temperature - - Respiratory Rate - - Oxygen Saturation - - Inhaled Oxygen Concentration - - Weight 62.1 kg (137 lb) 09/27/2010 9:16 AM [facility] Height - - Body Mass Index - [...] change/worsen, or do not improve as expected. [facility] documented in this encounter Progress Notes Candy [...] Apply topically. Twice daily ??? Triamcinolone Acetonide, [id number], (TRIAMCINOLONE ACETONIDE EX) cream use as needed [...] together. Candy Perez PA-C 10:39 AM 09/27/2010 [facility] documented in this encounter Plan of Treatment Upcoming Encounters Date Type Specialty Care Team Description 06/30/2022 Telemedicine Diabetes Program Yahaira Arrieta RD N, LD, [facility] [address] [place] N [id number] (Elena bains) 07/14/2022 Telemedicine Diabetes Program Yahaira Arrieta RD N, PAVAN, [facility] [address] [place] N [id number] (Elena bains) documented as of this encounter Procedures Procedure Name Priority Date/Time Associated Diagnosis Comme nts TEST Waiting 09/27/2010 9:39 AM control Result s for this (URINE) [facility] procedure are i n the results section. documented in this encounter Results TEST (URINE) (09/27/2010 9:39 AM [facility]) Component Value Ref Test Analysis Performed At [facility] Range Method Time Signature HCG, Urine Negative [facility] Negative = <25 mIU/ml If is suspected, suggest repeat in 48-72 hours or confirm results with a quantitative hCG test. Specimen Anatomical Collection Method Collection Time Receive d Time (Source) Location / / Volume Laterality Urine specimen 09/27/2010 9:39 AM 010 9:49 (specimen) [facility] AM [facility] Candy Perez PA-C LAB_1 Performing Organization Address City/State/ZIP Code Phon e Number [facility] [phone] [facility] [address] [place] [phone] documented in this encounter Visit Diagnoses Diagnosis control - Primary Unspecified contraceptive management documented in this encounter Care Teams Manager Oracle Relationship Specialty Start Date End Date Joel Anguiano MD PCP - General 01/17/10 11/13/10 [address] [place], [place] [address] documented as of this encounter
--- OUTSIDE RECORDS SUMMARY | 2022-06-28 07:23 | XMS_ITS | Encounter Summary ---
:1990 Author Organization [employer] Address [address] [place] [address] Care Team Providers Name Role Phone Unassigned, Provider Primary Care Provider Unavailable Reason for Visit Reason Comments ASTHMA Encounter Details Date Type Department Care Team Description 11/18/2009 Office Visit [facility] Miguelito Anguiano MD URI (Upper Medicine [address] Respiratory [address] Infection) (Primary [place], [place] [address] [place], [place] Dx) [phone] Social History Tobacco Use Types Packs/Day Years Used Date Smoking Tobacco: Never Alcohol Use Standard Drinks/Week Comments No 0 (1 standard drink = 0.6 oz pure alcoho l) Sex Assigned at Date Recorded Not on file documented as of this encounter Last Filed Vital Signs Vital Sign Reading Time Taken Comments Blood Pressure 120/70 11/18/2009 2:07 PM BENZOL STILL OPERATOR Pulse 72 11/18/2009 2:07 PM BENZOL STILL OPERATOR Temperature - - Respiratory Rate 18 11/18/2009 2:07 PM BENZOL STILL OPERATOR Oxygen Saturation - - Inhaled Oxygen Concentration - - Weight 65.3 kg (144 lb) 11/18/2009 2:07 PM BENZOL STILL OPERATOR Height - - Body Mass Index - [...] to clinic p.r.n. Joel Anguiano MD 11/18/2009 OL STILL OPERATOR documented in this encounter Plan of Treatment Upcoming Encounters Date Type Specialty Care Team Description 06/30/2022 Telemedicine Diabetes Program Yahaira Arrieta, NATANAEL N, LD, [facility] [address] [facility] N [id number] (Wo rk) 07/14/2022 Telemedicine Diabetes Program Yahaira Arrieta RD N, LD, [facility] [address] [facility] N [address] (Wo rk) documented as of this encounter Visit Diagnoses Diagnosis URI (upper respiratory infection) - Prim prospre Acute upper respiratory infections of un specified site documented in this encounter Care Teams Test Fixture Designer Relationship Specialty Start Date End Date Unassigned, Provider PCP - General 08/17/09 01/16/10 [address] [place] [address] documented as of this encounter
--- OUTSIDE RECORDS SUMMARY | 2022-06-28 07:23 | XMS_ITS | Encounter Summary ---
:1990 Author Organization [email or web address] Address [address], [place] [address] Care Team Providers Name Role Phone Max Heydi Hammer PA-C Primary Care Provider [phone] Encounter Details Date Type Department Care Team Description 03/12/2012 Lab Visit [facility] , incidental [address] [place] [address] Social History Tobacco Use Types [...] N, LD, [facility] [address] [facility] N [id number] (Wo rk) 07/14/2022 Telemedicine Diabetes Program Yahaira rArieta RD N, LD, [facility] [address] [facility] N [address] (Wo rk) documented as of [...] - 03/12/2012 1:33 PM CDT Performed at [facility], [address] [place] [address] Zack Yun MD LAB_1 Performing Organization Address City/State/ZIP Code Phon e Number [facility] documented in this encounter Visit Diagnoses Diagnosis , incidental state, incidental documented in this encounter Care Teams Director Translation Relationship Specialty Start Date End Date Heydi Santana PA-C PCP - General 11/14/10 [address] [place] [address] documented as of this encounter
--- OUTSIDE RECORDS SUMMARY | 2022-06-28 07:23 | XMS_ITS | Encounter Summary ---
:1990 Author Organization [employer] Address [address] [place] [address] Care Team Providers Name Role Phone Joel Anguiano MD Primary Care Provider Reason for Visit Reason Comments Sore Throat EARACHE left HEADACHE Encounter Details Date Type Department Care Team Description 10/05/2010 Office Visit [facility] Heydi Santana ( upper respiratory infection) (Primary Dx); Practice ZURDO Hammer Sore throat; [address] Rhinitis; [place], [place] [address] [place], [place] TMJ disorder [phone] Social History Tobacco Use Types Packs/Day Years Used Date Smoking Tobacco: Never Alcohol Use Standard Drinks/Week Comments No 0 (1 standard drink = 0.6 oz pure alcoho l) Sex Assigned at Date Recorded Not on file documented as of this encounter Last Filed Vital Signs Vital Sign Reading Time Taken Comments Blood Pressure 116/74 10/05/2010 1:46 PM CHIEF RADIOLOGIC TECHNOLOGIST Pulse 76 10/05/2010 1:46 PM CHIEF RADIOLOGIC TECHNOLOGIST Temperature 37.1 ??C (98.7 ??F) 10/05/2010 1:46 PM CHIEF RADIOLOGIC TECHNOLOGIST Respiratory Rate 16 10/05/2010 1:46 PM CHIEF RADIOLOGIC TECHNOLOGIST Oxygen Saturation - - Inhaled Oxygen Concentration - - Weight 62 kg (136 lb 9.6 oz) 10/05/2010 1:46 PM CHIEF RADIOLOGIC TECHNOLOGIST Height - - Body Mass Index - [...] candy/gum/tough meats to chew. Heydi Santana PA-C F RADIOLOGIC TECHNOLOGIST documented in this encounter Progress Notes Sita Barker RN - 10/06/2010 4:17 PM CHIEF RADIOLOGIC TECHNOLOGIST Quick Note: Letter sent. Herminia Barker LPN Nurse for [facility] F RADIOLOGIC TECHNOLOGIST Heydi Santana - 10/06/2010 8:32 AM CHIEF RADIOLOGIC TECHNOLOGIST Quick Note: Neg cx Heydi Santana PA-C F RADIOLOGIC TECHNOLOGIST Heydi Santana - 10/05/2010 2:17 PM CHIEF RADIOLOGIC TECHNOLOGIST Quick Note: Reviewed neg strep with pt pending cx Heydi Santana PA-C F RADIOLOGIC TECHNOLOGIST Heydi Santana - 10/05/2010 11:45 AM CST Lulu Mata [...] to improve as anticipated. Heydi Santana PA-C F RADIOLOGIC TECHNOLOGIST documented in this encounter Plan of Treatment Upcoming Encounters Date Type Specialty Care Team Description 06/30/2022 Telemedicine Diabetes Program Yahaira Arrieta RD N, LD, [facility] [address] [facility] N [id number] (Wo rk) 07/14/2022 Telemedicine Diabetes Program Yahaira Arrieta RD N, PAVAN, [facility] [address] [facility] [address] [facility] N [id number] (Wo rk) documented as of this encounter Procedures Procedure Name Priority Date/Time Associated Diagnosis Comme nts STREP GRP A, RAPID Waiting 10/05/2010 1:52 PM Sore throat Res ults for this SCREEN CHIEF RADIOLOGIC TECHNOLOGIST procedure are i n the results section. STREP GRP A, THROAT Routine 10/05/2010 1:52 PM Re sults for this CULTURE ONLY CHIEF RADIOLOGIC TECHNOLOGIST procedure are i n the results section. documented in this encounter Results STREP GRP A, THROAT CULTURE ONLY (10/05/2010 1:52 PM CHIEF RADIOLOGIC TECHNOLOGIST) [facility] gist Method Time Signature Grp A Culture Negative NEG [facility] Final Specimen Anatomical Collection Method Collection Time Receive d Time (Source) Location / / Volume Laterality 10/05/2010 1:52 PM 0 2:05 CHIEF RADIOLOGIC TECHNOLOGIST PM CHIEF RADIOLOGIC TECHNOLOGIST Heydi Santana PA-C LAB_1 Performing Organization Address City/[facility]/ZIP Code Phon e Number [employer] [phone] [phone] STREP GRP A, RAPID SCREEN (10/05/2010 1:52 PM CHIEF RADIOLOGIC TECHNOLOGIST) [facility] Method Time Signature Grp A Rapid Negative NEG [facility] Screen Specimen Anatomical Collection Method Collection Time Receive d Time (Source) Location / / Volume Laterality 10/05/2010 1:52 PM 0 2:05 CHIEF RADIOLOGIC TECHNOLOGIST PM CHIEF RADIOLOGIC TECHNOLOGIST Heydi Santana PA-C LAB_1 Performing Organization Address [facility] Phon e Number [employer] [phone] [phone] documented in this encounter Visit Diagnoses Diagnosis URI (upper respiratory infection) - Prim prosper Acute upper respiratory infections of un specified site Sore throat Acute pharyngitis Rhinitis Chronic rhinitis TMJ disorder Temporomandibular joint disorders, unspe cified documented in this encounter Care Teams Assistant Restaurant General Manager Relationship Specialty Start Date End Date Joel Anguiano MD PCP - General 01/17/10 11/13/10 [address] [place] [address] documented as of this encounter
--- OUTSIDE RECORDS SUMMARY | 2022-06-28 07:23 | XMS_ITS | Encounter Summary ---
:1990 Author Organization [facility] Address [address] [facility] [address] Care Team Providers Name Role Phone Heydi Santana PA-C Primary Care Provider [phone] Encounter Details Date Type Department Care Team Description 09/22/2003 PN Conversion Only [place] [facility] Ayaan Osorio [facility] [address] [facility] [address] [facility]. [facility] [address] [place] [address] [phone] Social History Tobacco Use Types Packs/Day Years Used Date Smoking Tobacco: Never Assessed Sex Assigned at Date Recorded Not on file documented as of this encounter Progress Notes Maryana Osorio - 09/22/2003 12:01 AM CST Progress Notes signed by Maryana Osorio MD at 09/23/03 0756 Author: Maryana Osorio MD Service: (none) Author Type: Physician Filed: 02/09/11 1721 Note Time: 09/22/03 0001 Status: Signed Granite Cutter Apprentice: Maryana Osorio MD (Physician) NAME: DILLAN MATA MR: [id number] ACCT: [id number] VISIT: [id number] DICTATING CLINICIAN: MARYANA OSORIO MD JOB: [id number] CLINIC PROGRESS NOTE DATE OF VISIT: 09/22/2003 [...] needed and follow up p.r.n. TT: CT: BOB:[id number] C: 09/23/03 05:53 DOCUMENT: [id number] Patito Craig - 02/19/2002 12:01 AM CDT Progress Notes signed by Patito Jorge APRN, PHOSPHATIC FERTILIZER SUPERVISOR at 03/11/02 1009 Author: HÉCTOR Martin Service: (none) Author Type: Nurse Practitioner Filed: 02/09/11 0554 Note Time: 02/19/02 0001 Status: Signed Granite Cutter Apprentice: HÉCTOR Martin (Nurse Practitioner) IMPRESSION: URI. SUBJECTIVE: [...] symptomatic treatment. Follow up p.r.n. TT: CT: [id number]:[id number] C: DOCUMENT: [id number] Maryana Osorio - 12/23/1998 12:01 AM CST Progress Notes signed by Maryana Osorio MD at 01/04/99 1608 Author: Maryana Osorio MD Service: (none) Author Type: Physician Filed: 02/08/11 0924 Note Time: 12/23/98 0001 Status: Signed Granite Cutter Apprentice: Maryana Osorio MD (Physician) IMPRESSION: Upper respiratory [...] put on Trimox 250 chewables t.i.d. stg D SALES ASSOCIATE Maryana Osorio - 12/10/1997 12:01 AM CST Progress Notes signed by Maryana Osorio MD at 12/17/972053 Author: Maryana Osorio MD Service: (none) Author Type: Physician Filed: 02/08/116 Note Time: 12/10/97 0001 Status: Signed Granite Cutter Apprentice: Maryana Osorio MD (Physician) IMPRESSION: Serous otitis [...] days and will followup here pemi carey D SALES ASSOCIATE Theodore Garcia MD - 03/02/1997 12:01 AM CDT Progress Notes signed by Theodore Garcia MD at 03/18/97 6476 Author: Theodore Garcia MD Service: (none) Author Type: Physician Filed: 02/07/11 7045 Note Time: 03/02/97 0001 Status: Signed Granite Cutter Apprentice: Theodore Garcia MD (Physician) IMPRESSION: Right otitis [...] effects. Recheck in two weeks. [facility] documented in this encounter Plan of Treatment Upcoming Encounters Date Type Specialty Care Team Description 06/30/2022 Telemedicine Diabetes Program Yahaira Arrieta, NATANAEL N, LD, [facility] [address] [place] N [id number] (Wo herson) 07/14/2022 Telemedicine Diabetes Program Yahaira Arrieta RD N, LD, [facility] [address] [place] N [address] (Elena bains) documented as of this encounter Procedures Procedure Name Priority Date/Time Associated Diagnosis Comme nts XR FOOT RT 3+ VIEWS Routine 09/22/2003 3:12 PM Re sults for this FIELD SALES ASSOCIATE procedure are i n the results section. STREP GROUP A Routine 02/19/2002 4:43 PM Results for this ANTIGEN TEST CDT procedure are i n the results section. BETA STREP FOLLOWUP Routine 02/19/2002 4:43 PM Re sults for this CDT procedure are i n the results section. documented in this encounter Results XR Foot Rt 3+ Views (09/22/2003 3:12 PM FIELD SALES ASSOCIATE) Anatomical Region Laterality Modality Lower Extremity, Foot Other Specimen (Source) Anatomical Location Collection Method / Collectio n Time Received Time / Laterality Volume Narrative 09/22/2003 3:12 PM FIELD SALES ASSOCIATE Findings: BN1 No radiographic evidence of bone [...] 02/19/2002 4:43 PM CDT Patito Jorge APRN, PHOSPHATIC FERTILIZER SUPERVISOR LAB_1 Performing Organization Address City/State/ZIP Code Phon [...] Cult Performed at ??[address] [facility], [place] ?[address] Specimen (Source) Anatomical Collection Method Collection Time Re ceived Time Location / / Volume Laterality 02/19/2002 4:43 PM CDT Patito Jorge APRN, PHOSPHATIC FERTILIZER SUPERVISOR LAB_1 Performing Organization Address City/State/ZIP Code Phon e Number [facility] documented in this encounter Visit Diagnoses Not on filedocumented in this encounter Care Teams Baker Second Relationship Specialty Start Date End Date Heydi Santana PA-C PCP - General 11/14/10 [address] [place], [place] [phone] documented as of this encounter
--- OUTSIDE RECORDS SUMMARY | 2022-06-28 07:23 | XMS_ITS | Encounter Summary ---
:1990 Author Organization [facility] Address [address] [place] [address] Care Team Providers Name Role Phone Heydi Santana PA-C Primary Care Provider [phone] Encounter Details Date Type Department Care Team Description 03/26/2009 PN Conversion Only [facility] [address] [place] [address] Social History Tobacco Use Types Packs/Day Years Used Date Smoking Tobacco: Never Assessed Sex Assigned at Date Recorded Not on file documented as of this encounter Plan of Treatment Upcoming Encounters Date Type Specialty Care Team Description 06/30/2022 Telemedicine Diabetes Program Yahaira Arrieta RD N, LD, [facility] [address] [facility] N [address] (Wo rk) 07/14/2022 Telemedicine Diabetes Program Yahaira Arrieta RD N, LD, [facility] [address] [facility] N [address] (Wo rk) documented as of this encounter Visit Diagnoses Not on filedocumented in this encounter Care Teams Sash Assembler Relationship Specialty Start Date End Date Heydi Santana PA-C PCP - General 11/14/10 [address] [place], [place] [address] documented as of this encounter
--- OUTSIDE RECORDS SUMMARY | 2022-06-28 07:23 | XMS_ITS | Encounter Summary ---
:1990 Author Organization [employer] Address [address], [place] [address] Care Team Providers Name Role Phone Unassigned, Provider Primary Care Provider Unavailable Reason for Visit Reason Comments SORE THROAT, cough, chest cold Encounter Details Date Type Department Care Team Description 10/19/[address] [facility] axillary Sinusitis (Primary Dx); [place] Acute Pharyngitis [address] [place], [place] [address] Social History Tobacco Use Types Packs/Day Years Used Date Smoking Tobacco: Never Assessed Sex Assigned at Date Recorded Not on file documented as of this encounter Last Filed Vital Signs Vital Sign Reading Time Taken Comments Blood Pressure 144/96 10/19/2009 7:00 PM STAFF DEVELOPER Pulse 78 10/19/2009 7:00 PM STAFF DEVELOPER Temperature 37.2 ??C (98.9 ??F) 10/19/2009 7:00 PM STAFF DEVELOPER Respiratory Rate 18 10/19/2009 7:00 PM STAFF DEVELOPER Oxygen Saturation - - Inhaled Oxygen Concentration - - Weight 64.6 kg (142 lb 6 oz) 10/19/2009 7:00 PM STAFF DEVELOPER Height - - Body Mass Index - - documented in this encounter Patient Instructions Patient InstructionsRyan Townsend - 10/19/2009 8:00 PM CST HP Sinusitis sheet given, emphasized saline rinses. Neti pot info and discussion given. F DEVELOPER documented in this encounter Progress Notes Xochilt Enriquez RN - 10/21/2009 6:14 PM STAFF DEVELOPER Quick Note: Strep culture results noted: Negative Nita Enriquez RN F DEVELOPER Ryan Townsend - 10/19/2009 7:28 PM CST [...] to improve as anticipated. Ryan Townsend MD F DEVELOPER documented in this encounter Plan of Treatment Upcoming Encounters Date Type Specialty Care Team Description 06/30/2022 Telemedicine Diabetes Program Yahaira Arrieta, NATANAEL N, LD, [facility] [address] [place] N [phone] (Elena bains) 07/14/2022 Telemedicine Diabetes Program Yahaira Arrieta RD N, LD, [facility] [address] [place] N [id number] (Elena bains) documented as of this encounter Procedures Procedure Name Priority Date/Time Associated Diagnosis Comme nts STREP GRP A, RAPID Waiting 10/19/2009 7:18 PM Acute Pharyngiti s Results for this SCREEN STAFF DEVELOPER procedure are i n the results section. STREP GRP A, THROAT Routine 10/19/2009 7:18 PM Acute Pharyngit is Results for this CULTURE ONLY STAFF DEVELOPER procedure are i n the results section. documented in this encounter Results STREP GRP A, THROAT CULTURE ONLY (10/19/2009 7:18 PM STAFF DEVELOPER) 1World Online Method Time Signature Grp A Culture Negative NEG Fi[facility]appsCH[facility]ENTER[facility] Solutions Final Specimen Anatomical Collection Method Collection Time Receive d Time (Source) Location / / Volume Laterality 10/19/2009 7:18 PM 9 7:22 STAFF DEVELOPER PM STAFF DEVELOPER Ryan Townsend MD LAB_1 Performing Organization Address [facility] Phon e Number Interneer [phone] [facility] [address] [place] [phone] STREP GRP A, RAPID SCREEN (10/19/2009 7:18 PM STAFF DEVELOPER) 1World Online Method Time Signature Grp A Rapid Negative NEG [facility]ULL[facility] Energy Solutions Screen Specimen Anatomical Collection Method Collection Time Receive d Time (Source) Location / / Volume Laterality 10/19/2009 7:18 PM 9 7:22 STAFF DEVELOPER PM STAFF DEVELOPER Ryan Townsend MD LAB_1 Performing Organization Address City/[facility] Phon e Number Interneer [phone] [facility] [address] [place] [phone] documented in this encounter Visit Diagnoses Diagnosis Acute maxillary sinusitis - Primary Acute pharyngitis documented in this encounter Care Teams Plant Physiology Teacher Relationship Specialty Start Date End Date Unassigned, Provider PCP - General 08/17/09 01/16/10 [address] [place] [address] documented as of this encounter
--- OUTSIDE RECORDS SUMMARY | 2022-06-28 07:23 | XMS_ITS | Encounter Summary ---
:1990 Author Organization [facility] Address [address] [place] [address] Care Team Providers Name Role Phone Heydi Santana PA-C Primary Care Provider [phone] Encounter Details Date Type Department Care Team Description 11/02/2004 PN Conversion Only CONV [id number] Social History Tobacco Use Types Packs/Day Years Used Date Smoking Tobacco: Never Assessed Sex Assigned at Date Recorded Not on file documented as of this encounter Plan of Treatment Upcoming Encounters Date Type Specialty Care Team Description 06/30/2022 Telemedicine Diabetes Program Yahaira Arrieta, NATANAEL N, LD, [facility] [address] [facility] N [address] (Wo rk) 07/14/2022 Telemedicine Diabetes Program Yahaira Arrieta RD N, LD, [facility] [address] [facility] ET [facility] N [address] (Wo rk) documented as of this encounter Visit Diagnoses Not on filedocumented in this encounter Care Teams Hardboard Supervisor Relationship Specialty Start Date End Date Heydi Santana PA-C PCP - General 11/14/10 [address] [place] [address] documented as of this encounter
--- OUTSIDE RECORDS SUMMARY | 2022-06-28 07:23 | XMS_ITS | Encounter Summary ---
:1990 Author Organization [employer] Address [address] [place] [address] Care Team Providers Name Role Phone MaxHeydi christensen Jaquelin RENNER Primary Care Provider [phone] Encounter Details Date Type Department Care Team Description 02/20/2011 PN Conversion Only [place] [facility] Jose Carlos Aguirre MD [facility] [address] [facility] 53[address] [facility] [address] [place], [place] [address] [place], [place] [phone] (Wo rk) Social History Tobacco Use Types [...] LD, [facility] [address] [facility] N [phone] (Wo rk) 07/14/2022 Telemedicine Diabetes Program Yahaira Arrieta RD N, LD, [facility] [address] [facility] N [id number] (Wo rk) documented as of this encounter Visit Diagnoses Not on filedocumented in this encounter Care Teams Water Use Inspector Relationship Specialty Start Date End Date Heydi Santana PA-C PCP - General 11/14/10 [address] [place] [address] documented as of this encounter
--- OUTSIDE RECORDS SUMMARY | 2022-06-28 07:23 | XMS_ITS | Encounter Summary ---
:1990 Author Organization [facility] Address [address], [place] [address] Care Team Providers Name Role Phone MaxHeydi christensen Jaquelin RENNER Primary Care Provider [phone] Encounter Details Date Type Department Care Team Description 10/04/2004 [facility] Patito Castillo APRN, [address] [place] [address] [phone] [place], [place] [address] Social History Tobacco Use Types Packs/Day Years Used Date Smoking Tobacco: Never Assessed Sex Assigned at Date Recorded Not on file documented as of this encounter Progress Notes Patito Jorge - 10/04/2004 12:01 AM CST Progress Notes signed by Patito Jorge APRN, MARBLE INSTALLATION HELPER at 10/04/04 1502 Author: HÉCTOR Martin Service: (none) Author Type: Nurse Practitioner Filed: 02/10/11 0201 Note Time: 10/04/04 0001 Status: Signed Priming Machine Operator: HÉCTOR Martin (Nurse Practitioner) Acute Clinic Visit [...] today on the Health Profile screen of [facility] Chronic Medications: None: OBJECTIVE: Vital Signs: T: [...] ~Shorthand Note completed on: 10/04/2004 2:17 PM QUALITY CONSULTANT documented in this encounter Plan of Treatment Upcoming Encounters Date Type Specialty Care Team Description 06/30/2022 Telemedicine Diabetes Program Yahaira Arrieta, NATANAEL N, LD, [facility] [address] [facility] N [address] (Wo rk) 07/14/2022 Telemedicine Diabetes Program Yahaira Arrieta RD N, LD, [facility] [address] [facility] N [address] (Wo rk) documented as of this encounter Visit Diagnoses Not on filedocumented in this encounter Care Teams Warehouse Helper Relationship Specialty Start Date End Date Heydi Santana PA-C PCP - General 11/14/10 [address] [place], [place] [address] documented as of this encounter
--- OUTSIDE RECORDS SUMMARY | 2022-06-28 07:23 | XMS_ITS | Encounter Summary ---
:1990 Author Organization [employer] Address [address] [address] Care Team Providers Name Role Phone Heydi Santana PA-C Primary Care Provider [phone] Reason for Visit Reason Comments Chest Pain Encounter Details Date Type Department Care Team Description 10/25/2011 Hospital Encounter Maria R King sinusitis, unspecified; Care MD Kim Unspecified asthma, with exacerbation [address] [facility] [address] [place], [place] [phone] [address] Social History Tobacco Use Types Packs/Day Years Used Date Smoking Tobacco: Never Alcohol Use Standard Drinks/Week Comments No 0 (1 standard drink = 0.6 oz pure alcoho l) Sex Assigned at Date Recorded Not on file documented as of this encounter Last Filed Vital Signs Vital Sign Reading Time Taken Comments Blood Pressure 123/78 10/25/2011 1:10 PM COMMUNITY ENGAGEMENT SPECIALIST Pulse 84 10/25/2011 1:10 PM COMMUNITY ENGAGEMENT SPECIALIST Temperature 37.2 ??C (99 ??F) 10/25/2011 1:10 PM COMMUNITY ENGAGEMENT SPECIALIST Respiratory Rate 16 10/25/2011 1:10 PM COMMUNITY ENGAGEMENT SPECIALIST Oxygen Saturation 99% 10/25/2011 1:10 PM COMMUNITY ENGAGEMENT SPECIALIST Inhaled Oxygen Concentration - - Weight - [...] Date:11/04/11, Frequency:2 TIMES DAILY *No Administrations Recorded UNITY ENGAGEMENT SPECIALIST documented in this encounter Plan of Treatment Upcoming Encounters Date Type Specialty Care Team Description 06/30/2022 Telemedicine Diabetes Program Yahaira Arrieta RD N, LD, [facility] [address] [facility] N [id number] (Wo rk) 07/14/2022 Telemedicine Diabetes Program Yahaira Arrieta RD N, LD, [facility] [address] [facility] N [id number] (Wo rk) documented as of this encounter Visit Diagnoses Diagnosis Acute sinusitis, unspecified Unspecified asthma, with exacerbation (H RC) Unspecified asthma, with exacerbation documented in this encounter Care Teams Coil Tester Relationship Specialty Start Date End Date Heydi Santana PA-C PCP - General 11/14/10 [address] [place], [place] [address] documented as of this encounter
--- OUTSIDE RECORDS SUMMARY | 2022-06-28 07:23 | XMS_ITS | Clinical Summary ---
:1990 Author Organization [employer] [facility] [place] [address] Care Team Providers Name Role Phone Genny Lazo MD Primary Care Provider [phone] Allergies No known active allergies Medications [...] Father Premature CHD (under age 60) Father [place] Allergies Mother Hypertension Mother Allergies Sister 4 [...] uts 05m/ lb 9.2 oz) Delivery Location: [facility] Comments: Induced preeclampsia Current OB Episode Summary Episode Dates Estimated Date of Pregravid Weight TWG (As of ) Delivery 04/04/2022 - Present Unknown (06/28/2022) Last Filed Vital Signs Vital Sign Reading [...] Height 152.4 cm (5') 09/23/2015 2:13 PM EVENTS ADMINISTRATIVE ASSISTANT Body Mass Index 31.05 09/23/2015 2:13 PM EVENTS ADMINISTRATIVE ASSISTANT Plan of Treatment Upcoming Encounters Date Type [...] TASHI AKINS MA 2012-Present [address] [place] [address] [address] [facility] (Home) [place], [place] [phone] (Work) Lulu Mata Personal/Family Self 1990 [address] [facility] (Home) [place], [place] [phone] (Work) Advance Directives Latest Code Status on File Code Status Date Activated Date Inactivated Comments Full Code 12/05/2012 6:17 AM 12/07/2012 9:39 PM Full Code 12/05/2012 1:03 AM 12/05/2012 6:17 AM Full Code 12/03/2012 4:10 PM 12/05/2012 1:03 AM Full Code 11/30/2012 9:24 PM 12/01/2012 3:09 AM Full Code 11/30/2012 9:03 PM 11/30/2012 9:24 PM Care Teams Slip Dumper Relationship Specialty Start Date End Date Genny Lazo MD PCP - General Family Practice 07/02/12 [address] [facility] [address] [facility] [place] [address]
--- OUTSIDE RECORDS SUMMARY | 2022-06-28 07:23 | XMS_ITS | Encounter Summary ---
:1990 Author Organization [employer] Address [address], [place] [address] Care Team Providers Name Role Phone Heydi Santana Jaquelin RENNER Primary Care Provider [phone] Reason for Visit Reason Comments Test Request Encounter Details Date Type Department Care Team Description 03/12/2012 Office Visit Zack Quintanilla Misse d period (Primary Dx); Medicine , incidental [address] [facility] [address] [place] [address] [place] [phone] [address] Social History Tobacco Use Types Packs/Day [...] signed by Zack Yun MD at 03/13/12 0992 Author: Zack Yun MD Service: (none) Author Type: Physician Filed: 03/13/12925 Note Time: 03/12/12 140 Status: Signed Bookkeeping Clerk: Zack Yun MD (Physician) NAME: DILLAN MATA MR#: [id number] CSN: [id number] AUTHENTICATING CLINICIAN: Zack Yun MD CONFIRM #: [id number] LOC: 3602 CLINIC PROGRESS NOTE DATE OF [...] return as needed. SJC:MEDPérez C: CONFIRM #: [id number] documented in this encounter Plan of Treatment Upcoming Encounters Date Type Specialty Care Team Description 06/30/2022 Telemedicine Diabetes Program aYhaira Arrieta RD N, LD, [facility] [address] [place] N [id number] (Wo rk) 07/14/2022 Telemedicine Diabetes Program Yahaira Arrieta RD N, LD, [facility] [address] oJse [place] N [id number] (Wo rk) documented as of this encounter Visit Diagnoses Diagnosis Missed period - Primary Irregular menstrual cycle , incidental state, incidental documented in this encounter Care Teams Company Driver Relationship Specialty Start Date End Date Heydi Santana PA-C PCP - General 11/14/10 [address] [place] [address] documented as of this encounter
--- OUTSIDE RECORDS SUMMARY | 2022-06-28 07:23 | XMS_ITS | Encounter Summary ---
:1990 Author Organization [facility] Address [address], [place] [address] Care Team Providers Name Role Phone Heydi Santana PA-C Primary Care Provider Reason for Referral Consult/Transfer Care (Routine) - New Request Specialty Diagnoses / Procedures Referred By Contact Refer red To Contact Diagnoses Gestational diabetes mellitus (GDM), antepartum, gestational diabetes method of control unspecified Celina Deleon PA-C [address] [place], [place] [address] Referral ID Status Reason Start Date Expiration Date Visits V isits Requested Authorized [id number] New Request 06/16/2022 09/15/2023 1 1 Scheduling Instructions Your provider has recommended an appoint ment with [facility] [address] [facility]. You may call [phone] to schedule yo ur appointment. We suggest you call your health insurance company about your cove rage and benefits for this appointment. Encounter Details Date Type Department Care Team Description 06/16/2022 Notes/Orders [facility] [address] Celina Deleon PA-C Gestational diabetes Endocrinology [address] mellitus (GDM), [address] antepartum, [address] [place], [place] [address] method of control [id number] unspecified (Primary [phone] Dx) Social History Tobacco Use Types Packs/Day [...] N, LD, [facility] [address] [facility] N [address] (Wo rk) 07/14/2022 Telemedicine Diabetes Program Yahaira Arrieta RD N, LD, [facility] [address] [facility] N [address] (Wo rk) Scheduled Referrals Name Type Priority Associated Diagnoses [facility] Referral Routine Gestational diabetes O rdered: 06/16/2022 Visit mellitus (GDM), antepartum, gestational diabetes method of control unspecified documented as of this encounter Visit Diagnoses Diagnosis Gestational diabetes mellitus (GDM), ant epartum, gestational diabetes method of control unspecified - Primary documented in this encounter Care Teams Lmft Relationship Specialty Start Date End Date Heydi Santana PA-C PCP - General 11/14/10 [address] [place] [address] documented as of this encounter
--- OUTSIDE RECORDS SUMMARY | 2022-06-28 07:23 | XMS_ITS | Encounter Summary ---
:1990 Author Organization [facility] Address [address] [place] [address] Care Team Providers Name Role Phone Heydi Santana PA-C Primary Care Provider [phone] Encounter Details Date Type Department Care Team Description 10/04/2004 PN Conversion Only [facility] [place] [facility] N [address] [place] [address] Social History Tobacco Use Types Packs/Day Years Used Date Smoking Tobacco: Never Assessed Sex Assigned at Date Recorded Not on file documented as of this encounter Plan of Treatment Upcoming Encounters Date Type Specialty Care Team Description 06/30/2022 Telemedicine Diabetes Program Yahaira Arrieta RD N, LD, [facility] [address] [facility] N [address] (Wo rk) 07/14/2022 Telemedicine Diabetes Program Yahaira Arrieta RD N, LD, [facility] [address] [facility] ET [facility] N [address] (Wo rk) documented as of this encounter Visit Diagnoses Not on filedocumented in this encounter Care Teams Sewing Machine Operator Relationship Specialty Start Date End Date Heydi Santana PA-C PCP - General 11/14/10 [address] [place], [place] [address] documented as of this encounter
--- OUTSIDE RECORDS SUMMARY | 2022-06-28 07:23 | XMS_ITS | Encounter Summary ---
:1990 Author Organization [facility] Address [address], [place] [address] Care Team Providers Name Role Phone Heydi Santana PA-C Primary Care Provider [phone] Encounter Details Date Type Department Care Team Description 12/07/2003 PN Conversion Only [facility] CONVERSION [address] [place] [address] Social History Tobacco Use Types Packs/Day Years Used Date Smoking Tobacco: Never Assessed Sex Assigned at Date Recorded Not on file documented as of this encounter Plan of Treatment Upcoming Encounters Date Type Specialty Care Team Description 06/30/2022 Telemedicine Diabetes Program Yahaira Arrieta RD N, LD, [facility] [address] [facility] N [address] (Wo rk) 07/14/2022 Telemedicine Diabetes Program Yahaira Arrieta RD N, LD, [facility] [address] [facility] ET [facility] N [address] (Wo rk) documented as of this encounter Visit Diagnoses Not on filedocumented in this encounter Care Teams Executive Casino Host Relationship Specialty Start Date End Date Heydi Santana PA-C PCP - General 11/14/10 [address] [place], [place] [address] documented as of this encounter
--- OUTSIDE RECORDS SUMMARY | 2022-06-28 07:23 | XMS_ITS | Encounter Summary ---
:1990 Author Organization [employer] Address [address] [address] Care Team Providers Name Role Phone Amx, Heydi Hammer PA-C Primary Care Provider [phone] Reason for Visit Reason Comments APPOINTMENT REQUEST Referral for GDM Encounter Details Date Type Department Care Team Description 06/07/2022 Telephone [facility] 3800 Nurse, P3800 End APPOINTMENT REQUEST Endocrinology [address] (Referral for GDM) [address] [place] [address] [phone] Social History Tobacco Use Types Packs/Day Years [...] 11:58 AM CDT Faxed referral rec'd from [facility] for GDM, records sent to [facility] documented in this encounter Plan of Treatment Upcoming Encounters Date Type Specialty Care Team Description 06/30/2022 Telemedicine Diabetes Program Yahaira Arrieta, NATANAEL N, LD, [facility] [address] [place] N [address] (Wo rk) 07/14/2022 Telemedicine Diabetes Program Yahaira Arrieta RD N, LD, [facility] [address] [place] N [id number] (Wo rk) documented as of this encounter Visit Diagnoses Not on filedocumented in this encounter Care Teams Scoop Driver Relationship Specialty Start Date End Date Heydi Santana PA-C PCP - General 11/14/10 [address] [place] [address] documented as of this encounter
--- OUTSIDE RECORDS SUMMARY | 2022-06-28 07:23 | XMS_ITS | Encounter Summary ---
:1990 Author Organization [email or web address] Address [address] [place] [address] Care Team Providers Name Role Phone Joel Anguiano MD Primary Care Provider Reason for Visit Reason Comments SKIN PROBLEM MOLE under rt arm Encounter Details Date Type Department Care Team Description 06/30/2010 Office Visit [place] [facility] Sheng Leblanc D ermatitis (Primary Dx); Medicine MD Gerardo [address] [place], [place] [address] [place], [place] [phone] Social History Tobacco Use Types Packs/Day Years [...] Diabetes Program Yahaira Arrieta RD N, LD, [facility] [address] [facility] ET VD [facility] N [phone] (Wo rk) 07/14/2022 Telemedicine Diabetes Program Yahaira Arrieta RD N, LD, [facility] [address] [facility], N [address]756 (Wo rk) documented as of this encounter Visit Diagnoses Diagnosis Dermatitis - Primary Contact dermatitis and other eczema, due to unspecified cause Acrochordon Unspecified hypertrophic and atrophic co ndition of skin documented in this encounter Care Teams University Services Program Associate Relationship Specialty Start Date End Date Joel Anguiano MD PCP - General 01/17/10 11/13/10 [address] [place] [address] documented as of this encounter
--- OUTSIDE RECORDS SUMMARY | 2022-06-28 07:23 | XMS_ITS | Encounter Summary ---
:1990 Author Organization [employer] Address [address] [place] [address] Care Team Providers Name Role Phone MaxHeydi christensen Jaquelin RENNER Primary Care Provider [phone] Encounter Details Date Type Department Care Team Description 03/26/2009 PN Conversion Only [facility] Arturo Aguirre MD [address] [place] [address] [place] [address] (Wo rk) Social History Tobacco Use Types Packs/Day Years Used Date Smoking Tobacco: Never Assessed Sex Assigned at Date Recorded Not on file documented as of this encounter Plan of Treatment Upcoming Encounters Date Type Specialty Care Team Description 06/30/2022 Telemedicine Diabetes Program Yahaira Arrieta RD N, LD, [facility] 3800 [facility] N [phone] (Wo rk) 07/14/2022 Telemedicine Diabetes Program Yahaira Arrieta RD N, LD, [facility] [address] [facility] ET [facility] N [phone] (Wo rk) documented as of this encounter [...] Arturo Aguirre MD LAB_1 Performing Organization Address [facility] Phon e Number HP CONVERSION Beta Strep Followup (03/26/2009 3:15 PM CDT) P athologist Signature Strep Screen SEE TEXT HP CONVERSION Comment: Patient: DILLAN MATA Rapid Strep Follow up Culture ? Collected: ??[id number] ??[id number] Source: Throat ?Processed: ??[id number] ??[id number] ? 1B Final Report ------ ?[id number] ??[id number] No beta hemolytic Strep group A isolated . Specimen (Source) Anatomical Collection Method Collection Time Re ceived Time Location / / Volume Laterality 03/26/2009 3:15 PM CDT Arturo Aguirre MD LAB_1 Performing Organization Address City/State/ZIP Code Phon e Number HP CONVERSION documented in this encounter Visit Diagnoses Not on filedocumented in this encounter Care Teams Marine Habitat Resource Specialist Relationship Specialty Start Date End Date Heydi Santana PA-C PCP - General 11/14/10 [address] [place] [address] documented as of this encounter
--- OUTSIDE RECORDS SUMMARY | 2022-06-28 07:23 | XMS_ITS | Encounter Summary ---
:1990 Author Organization [facility] Address [address] [place] [address] Care Team Providers Name Role Phone Ben Arce M.D. Primary Care Provider Reason for Visit Reason Comments Vomiting During Auth/Cert Specialty Diagnoses / Procedures Referred By Contact Refer red To Contact Diagnoses Procedures Referral ID Status Reason Start Date Expiration Date Visits Requ ested Visits Authorized [id number] 1 1 Encounter Details Date Type Department Care Team Description 06/12/2022 [facility], [address] [facility] [address] [place], [place] [address] [place] [address] [place], [place] [phone] (Wo rk) [address] [phone] Social History Tobacco Use Types Packs/Day Years [...] do you attend latter-day or Never 2021 episcopal services? 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 Education provided on staying hydrated and how [...] [facility] [address] [place], [place] [address] [facility] [place] [address] [facility] [address] documented in this encounter Visit Diagnoses Not on filedocumented in this encounter Additional Health Concerns Assessment Noted Time PHQ-9 Depression Total Score: 4 12/20/2021 10:52 AM CS T documented as of this encounter Care Teams Sock Lining Examiner Relationship Specialty Start Date End Date Ben Arce M.D. PCP - General Family Medicine 01/13/[address] [place] [address] documented as of this encounter
--- OUTSIDE RECORDS SUMMARY | 2022-06-28 07:23 | XMS_ITS | Encounter Summary ---
:1990 Author Organization [facility] Address [address] [place] [address] Care Team Providers Name Role Phone Heydi Santana Jaquelin RENNER Primary Care Provider [phone] Encounter Details Date Type Department Care Team Description 11/17/2003 PN Conversion Only [facility] Soumya Sorenson MD [place] [address] [facility] [address] [place] [address] [phone] Social History Tobacco Use Types Packs/Day Years Used Date Smoking Tobacco: Never Assessed Sex Assigned at Date Recorded Not on file documented as of this encounter Progress Notes Soumya Sorenson MD - 11/17/2003 12:01 AM CST Progress Notes signed by Soumya Sorenson MD at 06/01/048 Author: Soumya Sorenson MD Service: (none) Author Type: Physician Filed: 02/09/11 1824 Note Time: 11/17/03 0001 Status: Signed Nurse Assistant: Soumya Sorenson MD (Physician) NAME: DILLAN MATA MR: [id number] ACCT: [id number] VISIT: [id number] DICTATING CLINICIAN: SOUMYA SORENSON MD JOB: [id number] CLINIC PROGRESS NOTE DATE OF VISIT: 11/17/2003 [...] Well-developed, well-nourished female in no acute distress. [id number] C: 12/01/03 11:11 DOCUMENT: [id number] documented in this encounter Plan of Treatment Upcoming Encounters Date Type Specialty Care Team Description 06/30/2022 Telemedicine Diabetes Program Yahaira Arrieta RD N, LD, [facility] [address] [facility] [address] [facility] [address] [address] (Wo rk) 07/14/2022 Telemedicine Diabetes Program Yahaira Arrieta RD N, LD, [facility] [address] [facility] [address] [facility] [address] [address] (Wo rk) documented as of this encounter Visit Diagnoses Not on filedocumented in this encounter Care Teams Metal Trimmer Relationship Specialty Start Date End Date Heydi Santana PA-C PCP - General 11/14/10 [address] [place] [address] documented as of this encounter
--- OUTSIDE RECORDS SUMMARY | 2022-06-28 07:23 | XMS_ITS | Encounter Summary ---
:1990 Author Organization [employer] [facility] Address [address] [place] [address] Care Team Providers Name Role Phone MxaHeydi christensen Jaquelin RENNER Primary Care Provider [phone] Reason for Visit Reason Comments Sore Throat HEADACHE Encounter Details Date Type Department Care Team Description 05/25/2011 Office Visit [facility] Angelique Wilkinson MD Acute pharyngitis (Primary Dx); Practice [address] Reactive airway disease; [address] [place], [place] Sore throat [place], [place] [phone] Social History Tobacco Use Types Packs/Day Years Used Date Smoking Tobacco: Never Alcohol Use Standard Drinks/Week Comments No 0 (1 standard drink = 0.6 oz pure alcoho l) Sex Assigned at Date Recorded Not on file documented as of this encounter Last Filed Vital Signs Vital Sign Reading Time Taken Comments Blood Pressure 112/74 05/25/2011 2:07 PM CDT Pulse 60 05/25/2011 2:07 PM CDT Temperature 37.1 ??C (98.8 ??F) 05/25/2011 2:07 PM CDT Respiratory Rate 16 05/25/2011 2:07 PM CDT Oxygen Saturation - - Inhaled Oxygen Concentration - - Weight 64.5 kg (142 lb 3.2 oz) 05/25/2011 2:07 PM CDT Height - - Body Mass Index - - documented in this encounter Patient Instructions Patient InstructionsAngelique Wilkinson - 05/25/2011 2:36 PM CDT Strep was negative. Should take ibuprofen or Tylenol as needed. Drink lots of fluid. Throat lukewarm salt gargles Follow up in one week or sooner if there is indication. documented in this encounter Progress Notes Angelique Wilkinson - 05/25/2011 2:25 PM CDT S: Lulu Mata is a 21 yr old female came in with sorethraot for 1.5 weeks Review of Systems No upper respiratory infection symptoms, no abdominal pain, no diarrhea, mild headaches. There is no problem list on file for this patient. Current outpatient prescriptions Medication Sig ??? ALBUterol sulfate hfa (PROAIR HFA) 108 (90 BASE) MCG/ACT inhaler Inhale 2-4 Puffs by mouth every4 hours as needed for Wheezing. History Social History ??? Marital Status: N/A Spouse Name: N/A Number of Children: N/A ??? Years of Education: N/A Occupational History ??? Not on file. Social History Main Topics ??? Smoking status: Never Smoker ??? Smokeless tobacco: Not on file ??? Alcohol Use: No ??? Drug Use: No ??? Sexually Active: Not Currently Other Topics Concern ??? Not on file Social History Narrative ??? No narrative on file O: BP 112/74 Pulse 60 Temp(Src) 98.8 ??F (37.1 ??C) (Oral) Resp 16 Wt 142 lb 3.2 oz (64.501 kg) LMP 05/18/2011 Physical exam : Gen :Alert and oriented ,NAD . HEENT :pupil equal ,roud ,reactive ,TM bilateraly normal ,neck supple , oropharynx is slightly red no exudate Chest :clear to auscultation bilateraly . CVS :RRR,no murmmer . Abd :soft ,positive bowel sound ,non tender . A/P: Acute pharyngitis strep is negative recommend doing symptomatic treatment follow up in one week if symptoms are not better or sooner if there is indication. Angelique Wilkinson MD documented in this encounter Plan of Treatment Upcoming Encounters Date Type Specialty Care Team Description 06/30/2022 Telemedicine Diabetes Program Yahaira Arrieta, NATANAEL N, LD, [facility] [address] [place] [address] (Wo rk) 07/14/2022 Telemedicine Diabetes Program Yahaira Arrieta, NATANAEL N, LD, [facility] [address] [place] [address] (Wo rk) documented as of this encounter Procedures Procedure Name Priority Date/Time Associated Diagnosis Comme nts STREP GRP A, RAPID Waiting 05/25/2011 2:07 PM Sore throat Res ults for this SCREEN CDT procedure are i n the results section. STREP GRP A, THROAT Routine 05/25/2011 2:07 PM Re sults for this CULTURE ONLY CDT procedure are i n the results section. documented in this encounter Results STREP GRP A, THROAT CULTURE ONLY (05/25/2011 2:07 PM CDT) Unyqe Method Time Signature Grp A Culture Negative NEG [place] Final Specimen Anatomical Collection Method Collection Time Receive d Time (Source) Location / / Volume Laterality 05/25/2011 2:07 PM 1 2:24 CDT PM CDT Angelique Wilkinson MD LAB_1 Performing Organization Address City/[facility] [address]/ZIP Code Phon e Number [employer] [phone] [place] [address] [place] [address] STREP GRP A, RAPID SCREEN (05/25/2011 2:07 PM CDT) Unyqe Method Time Signature Grp A Rapid Negative NEG [facility]ITAL[facility] Screen Specimen Anatomical Collection Method Collection Time Receive d Time (Source) Location / / Volume Laterality 05/25/2011 2:07 PM 1 2:24 CDT PM CDT Angelique Wilkinson MD LAB_1 Performing Organization Address City/[facility] [address]/ZIP Code Phon e Number [employer] [phone] [facility] [address] [address] documented in this encounter Visit Diagnoses Diagnosis Acute pharyngitis - Primary Reactive airway disease (HRC) Unspecified asthma Sore throat Acute pharyngitis documented in this encounter Care Teams Freight Breaker Relationship Specialty Start Date End Date Heydi Santana PA-C PCP - General 11/14/10 [address] [place], [place] [address] documented as of this encounter
--- OUTSIDE RECORDS SUMMARY | 2022-06-28 07:24 | XMS_ITS | Encounter Summary ---
:1990 Author Organization [facility] Address [address] [place] [address] Care Team Providers Name Role Phone Ben Arce M.D. Primary Care Provider Reason for Visit Reason Comments Routine Visit 12+2weeks Sinusitis Concerns Outpatient (Routine) - Authorized Specialty Diagnoses / Procedures Referred By Contact Refer red To Contact Obstetrics and Cheikh Gautam [facility] william Gynecology MGonzalez Referral ID Status Reason Start Date Expiration Date Visits V isits Requested Authorized [id number] Authorized 12/20/2021 12/20/2022 15 15 Encounter Details Date Type Department Care Team Description 02/01/2022 Routine Department of Terrence Swenson High [facility] Obstetrics and MGonzalez (Primary Dx) Gynecology in [address] [address] [place], [place] [phone] [address] (Work) [phone] Social History Tobacco Use Types Packs/Day Years [...] do you attend episcopal or Never 2021 hoahaoism services? 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 documented as of this encounter Last Filed Vital Signs Vital Sign Reading Time Taken Comments Blood Pressure 130/86 02/01/2022 8:50 AM CDT Pulse - - Temperature - - Respiratory Rate - - Oxygen Saturation - - Inhaled Oxygen Concentration - - Weight 69.9 kg (154 lb 1.6 oz) 02/01/2022 8:49 AM CDT Height - - Body Mass Index 29.09 12/09/2021 8:31 AM WARD SERVICE SUPERVISOR documented in this encounter Progress Notes Terrence [...] Refer elsewhere in the EMR for established CAROLS, documentation of prior obstetric history, laboratoryinformation, and [...] ASSESSMENT / PLAN #1 High Risk - [id number] Plus-Sent Out Lab; Future; Expected date: 02/01/2022 [...] has been sent to her pharmacy in [place]. Most of the early symptoms of including [...] on filedocumented as of this encounter Results [id number] Plus-Sent Out Lab (02/01/2022 9:52 AM CDT) [...] Organization Address City/State/ZIP Code Phon e Number [facility] [address] [place] [address] [place] [facility] [address] [employer] [address] documented in this encounter Visit Diagnoses Diagnosis High Risk (HCC) - Primary documented in this encounter Additional Health Concerns Assessment Noted Time PHQ-9 Depression Total Score: 4 12/20/2021 10:52 AM CS T documented as of this encounter Care Teams Complex Commercial Litigation Paralegal Relationship Specialty Start Date End Date Ben Arce M.D. PCP - General Family Medicine 01/13/[address] [place] [phone] documented as of this encounter
--- OUTSIDE RECORDS SUMMARY | 2022-06-28 07:24 | XMS_ITS | Encounter Summary ---
:1990 Author Organization [facility] Address [address] [place] [address] Care Team Providers Name Role Phone Ben Arce M.D. Primary Care Provider Encounter Details Date Type Department Care Team Description 11/28/2021 Hospital Encounter Department of Erika Jones Laboratory Laboratory Medicine CJ HammerN, Results in [place], C.N.PMaribell, M.S.N. [place] [address] [place] [phone] Social History Tobacco Use Types Packs/Day Years [...] do you attend cheondoism or Never 2021 anabaptism services? Do you [...] at Date Recorded Female 12/02/2021 5:19 PM STATE EDITOR documented as of this encounter Medications [...] Abnormal Laboratory Results for this GONADOTROPIN (HCG), STATE EDITOR Results procedur e are in ROBERTA, the results section. documented in this encounter Results (ABNORMAL) hCG (Human Chorionic Gonadotropin), Quantitative, (11/28/2021 4:00 PM STATE EDITOR) P athologist Signature HCG, 94 (H) <5 IU/L 11/28/2021 NPRG Quantitative, 7:47 PM STATE EDITOR , P Comment: Biotin has been [...] (Blood, 11/28/2021 4:00 PM 11/28/19 6:56 Venous) STATE EDITOR PM STATE EDITOR Erika Jones APRN, C.N.P., M.S.N. LAB BLOOD ADD-ON Performing Organization Address City/State/ZIP Code Phon e Number [facility]- [address] [place], [place] [address] [facility] [place] [address] [place] [address] [address] [facility] documented in this encounter Visit Diagnoses Diagnosis Abnormal Laboratory Results documented in this encounter Care Teams Carpet Installation Specialist Relationship Specialty Start Date End Date Ben Arce M.D. PCP - General Family Medicine 01/13/[address] [place] [phone] documented as of this encounter
--- OUTSIDE RECORDS SUMMARY | 2022-06-28 07:24 | XMS_ITS | Encounter Summary ---
:1990 Author Organization [facility] Address [address] [place] [address] Care Team Providers Name Role Phone Ben Arce M.D. Primary Care Provider Encounter Details Date Type Department Care Team Description 12/20/2021 Hospital Encounter Department of Cheikh Gautam Laboratory Medicine Minoo Garcia Supervis ion Of Other in [facility] Unspecified [address] [place] [address] Social History Tobacco Use Types Packs/Day Years [...] do you attend pentecostal or Never 2021 sikhism services? Do you [...] at Date Recorded Female 12/02/2021 5:19 PM UNITIZER documented as of this encounter Medications at [...] Encounter For Resul ts for this AM UNITIZER Supervision Of Other procedu re are in Normal the results Unspecified section. Trimester URINALYSIS WITH Routine 12/20/2021 11:26 Encounter For Results for this MICROSCOPIC IF AM UNITIZER Supervision Of Other proce dure are in INDICATED, U Normal the results Unspecified section. Trimester BACTERIAL CULTURE, Routine 12/20/2021 11:26 Encounter For Resu lts for this AEROBIC + SUSC, AM UNITIZER Supervision Of Other proc edure are in URINE Normal the results Unspecified section. Trimester documented in this encounter Results Hemoglobin A1c (12/20/2021 11:34 AM UNITIZER) P athologist Signature Hemoglobin A1c, 5.2 4.2 - 5.6 12/20/2021 OWAT B % 12:27 PM UNITIZER Specimen Anatomical Collection Method Collection Time Receive d Time (Source) Location / / Volume Laterality Blood (Blood, 12/20/2021 11:34 12/20/2021 Venous) AM UNITIZER 11:40 AM UNITIZER Cheikh Gautam M.D. LAB BLOOD ADD-ON Performing Organization Address City/State/ZIP Code Phon e Number [facility]- [address] [place] [address] [place] [address] System in [place] [address] Bacterial Culture, Aerobic + Susc, Urine (12/20/2021 11:26 AM UNITIZER) Patholo gist Method Time Signature Urine Culture No growth 12/21/2021 MKTO after 1 day 8:40 AM UNITIZER of incubation. Specimen Anatomical Collection Method Collection Time Receive d Time (Source) Location / / Volume Laterality Urine (Urine, 12/20/2021 11:26 12/20/2021 2:19 Midstream) AM UNITIZER PM UNITIZER Comment: Specimen Source Site: Urine Cheikh Gautam M.D. LAB MICROBIOLOGY - GENERAL O RDERABLES Performing Organization Address City/State/ZIP Code Phon e Number [facility]- [address] [place] [address] [place] [address] System in [place] [address] [place] [address] Urinalysis with Microscopic if Indicated (12/20/2021 11:26 AM UNITIZER) P athologist Signature Source Urine, 12/20/2021 OWAT Urine, Clean 12:12 PM UNITIZER Catch Clarity Clear Clear 12/20/2021 OWAT 12:12 PM UNITIZER Color Yellow 12/20/2021 OWAT 12:12 PM UNITIZER Comment: ----REFERENCE VALUE---- Colorless Yellow Ronda Blood Negative Negative 12/20/2021 12:12 PM UNITIZER OWAT Nitrite Negative Negative 12/20/2021 12:12 PM UNITIZER OWAT Leukocyte Esterase Negative Negative 12/20/2021 12:[address] OWAT Protein Negative mg/dL 12/20/2021 12:12 PM UNITIZER OWAT Comment: ----REFERENCE VALUE---- Negative Trace Glucose Negative Negative mg/dL 12/20/2021 12:12 PM UNITIZER O FRANSICO Ketone Negative Negative mg/dL 12/20/2021 12:12 PM UNITIZER O FRANSICO Bilirubin Negative Negative 12/20/2021 12:12 PM UNITIZER OWAT pH 6.0 5.0 - 8.0 12/20/2021 12:12 PM UNITIZER OWAT Specific [place] 1.005 1.001 - 1.035 12/20/2021 12:12 PM UNITIZER OWAT Urobilinogen 0.2 0.2 - 1.0 mg/dL 12/20/2021 12:[address] OWAT Specimen Anatomical Collection Method Collection Time Receive d Time (Source) Location / / Volume Laterality Urine (Urine, 12/20/2021 11:26 12/20/2021 Clean Catch) AM UNITIZER 12:06 PM UNITIZER Cheikh Gautam M.D. LAB URINE ORDERABLES Performing Organization Address City/State/ZIP Code Phon e Number [facility]- [address] [place] [address] [place] [address] System in [place] [address] documented in this encounter Visit Diagnoses Diagnosis Encounter For Supervision Of Other Stella echols Unspecified Trimester (HCC) documented in this encounter Additional Health Concerns Assessment Noted Time PHQ-9 Depression Total Score: 4 12/20/2021 10:52 AM CS T documented as of this encounter Care Teams Business Banking Representative Relationship Specialty Start Date End Date Ben Arce M.D. PCP - General Family Medicine 01/13/[address] [place] [phone] documented as of this encounter
--- OUTSIDE RECORDS SUMMARY | 2022-06-28 07:24 | XMS_ITS | Encounter Summary ---
:1990 Author Organization [facility] Address [address] [place] [address] Care Team Providers Name Role Phone Ben Arce M.D. Primary Care Provider Encounter Details Date Type Department Care Team Description 02/01/2022 Hospital Encounter Department of Terrence Swenson High Risk Laboratory Medicine MGonzalez in [address] [address] [place], [place] [phone] [address] (Work) [phone] Social History Tobacco Use Types Packs/Day Years [...] do you attend voodoo or Never 2021 mu-ism services? Do you [...] at Date Recorded Female 12/02/2021 5:19 PM MINI LAB OPERATOR documented as of this encounter Medications [...] Name Priority Date/Time Associated Diagnosis Comme nts [id number] Routine 02/01/2022 9:52 AM High Risk Re sults for this PLUS-SENT OUT LAB CDT (HCC) procedure are in the results section. documented in this encounter Results [id number] Plus-Sent Out Lab (02/01/2022 9:52 AM CDT) [...] Organization Address City/State/ZIP Code Phon e Number [facility] [address] [place] [address] [facility] [place] [address] [email or web address] [address] documented in this encounter Visit Diagnoses Diagnosis High Risk (HCC) documented in this encounter Additional Health Concerns Assessment Noted Time PHQ-9 Depression Total Score: 4 12/20/2021 10:52 AM CS T documented as of this encounter Care Teams Fire Officer Relationship Specialty Start Date End Date Ben Arce M.D. PCP - General Family Medicine 01/13/[address] [facility] [place] [address] documented as of this encounter
--- OUTSIDE RECORDS SUMMARY | 2022-06-28 07:24 | XMS_ITS | Encounter Summary ---
:1990 Author Organization [facility] Address [address] [place] [address] Care Team Providers Name Role Phone Ben Arce M.D. Primary Care Provider Reason for Visit Reason Comments Nurse Visit NOB ED/INTAKE APPT Encounter Details Date Type Department Care Team Description 12/08/2021 Virtual Visit Department of Terrence Swenson M.D. [address] [address] Encounter For Supervision Of Other Stella l Unspecified Trimester (Primary Dx); Obstetrics and Autumn Patel R.N. [address] [address] Examination Test With Positive Result Gynecology in [place], [place] [address] [address] Social History Tobacco Use Types [...] do you attend uatsdin or Never 2021 mu-ism services? Do you [...] Date Recorded Female 12/02/2021 5:19 PM ADMINISTRATIVE VOLUNTEER documented as of this encounter Patient Instructions [...] Provided Today: Beginnings: , , and [facility] brochure-[facility] NISTRATIVE VOLUNTEER documented in this encounter Progress Notes Autumn Patel R.N. - 12/08/2021 1:30 PM CST Consult conducted via real-time audio/video technology by Autumn Patel R.N. in [facility] to the patient in Patient's Home. episode opened-please see history for details. Conceived with Nexplanon in place-this was removed after positive Beta Hcg. 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 Denies concerns. Encouraged to call with questions or concerns. NISTRATIVE VOLUNTEER documented in this encounter Plan of Treatment Not on filedocumented as of this encounter Results Hepatitis C Virus Antibody Screen (12/20/2021 11:34 AM ADMINISTRATIVE VOLUNTEER) athologist Signature HCV Ab Scrn Negative Negative 12/21/2021 [facility] , S 8:10 AM ADMINISTRATIVE VOLUNTEER Comment: Iedtjs-tl-ldrqpy ratio is <1.00 . Specimen Anatomical Collection Method Collection Time Receive d Time (Source) Location / / Volume Laterality Blood (Blood, 12/20/2021 11:34 12/21/2021 6:40 Venous) AM ADMINISTRATIVE VOLUNTEER AM ADMINISTRATIVE VOLUNTEER Cheikh Gautam M.D. LAB MICROBIOLOGY - BLOOD ORD ERABLES Performing Organization Address City/State/ZIP Code Phon e Number [facility] [address] [place] [phone] [facility] [place] [address] Laboratory Medicine and Pathology [address] [place] Syphilis Total Ab w/ Reflex, Serum (12/20/2021 11:34 AM ADMINISTRATIVE VOLUNTEER) [facility] Method Time Signature Syphilis Nonreactive Nonreactive 12/21/2021 [facility] Total Ab w/ 11:40 AM ADMINISTRATIVE VOLUNTEER Reflex Comment: No serologic evidence of infection with T. pallidum (syphilis). ??Repeat testing may be cons idered in patients with suspected acute or primary syphilis in 2-4 weeks. For additional information on interpreta tion of the syphilis reverse algorithm and resul ts, see: [email or web address] Specimen Anatomical Collection Method Collection Time Receive d Time (Source) Location / / Volume Laterality Blood (Blood, 12/20/2021 11:34 12/20/2021 6:27 Venous) AM ADMINISTRATIVE VOLUNTEER PM ADMINISTRATIVE VOLUNTEER Cheikh Gautam M.D. LAB BLOOD ADD-ON Performing Organization Address City/[facility] Phon e Number [facility]- [address] [place] [address] [phone] [place] [address] System [address] Rubella Antibodies, IgG (12/20/2021 11:34 AM ADMINISTRATIVE VOLUNTEER) athologist Signature Rubella Ab, Positive 12/21/2021 [facility] IgG, S 11:40 AM ADMINISTRATIVE VOLUNTEER Comment: Results suggest response to immunization or prior exposure to the virus. ----REFERENCE VALUE---- Vaccinated: Positive (>=1.0 AI) Unvaccinated: Negative (<=0.7 AI) Rubella IgG Antibody Index 2.6 12/21/2021 11 :40 AM ADMINISTRATIVE VOLUNTEER [facility] Specimen Anatomical Collection Method Collection Time Receive d Time (Source) Location / / Volume Laterality Blood (Blood, 12/20/2021 11:34 12/20/2021 6:27 Venous) AM ADMINISTRATIVE VOLUNTEER PM ADMINISTRATIVE VOLUNTEER Cheikh Gautam M.D. LAB MICROBIOLOGY - BLOOD ORD ERABLES Performing Organization Address City/State/ZIP Code Phon e Number [facility]- [address] [place] [phone] [place] [address] System in [address] HIV-1/-2 Ag and Ab Scrn, Plasma (12/20/2021 11:34 AM ADMINISTRATIVE VOLUNTEER) P athologist Signature HIV Ag/Ab Negative Negative 12/21/2021 [facility] Scrn, 11:40 AM ADMINISTRATIVE VOLUNTEER P Comment: Negative result does not rule out HIV in fection. If exposure to HIV infection occurred <14 d ays ago, contact the laboratory to request additi on of HIV-1 RNA detection / quantification test. HIV-1 p24 Ag Scrn, P Negative Negative 12/21/2021 11:40 AM ADMINISTRATIVE VOLUNTEER [place] Comment: Negative result does not rule out HIV in fection. If exposure to HIV infection occurred <14 d ays ago, contact the laboratory to request additi on of HIV-1 RNA detection / quantification test. HIV-1 Ab Scrn, P Negative Negative 12/21/2021 11: 40 AM ADMINISTRATIVE VOLUNTEER [place] Comment: Negative result does not rule out HIV in fection. If exposure to HIV infection occurred <14 d ays ago, contact the laboratory to request additi on of HIV-1 RNA detection / quantification test. HIV-2 Ab Scrn, P Negative Negative 12/21/2021 11: 40 AM ADMINISTRATIVE VOLUNTEER [facility] Comment: Negative result does not rule out HIV in fection. If exposure to HIV infection occurred <14 d ays ago, contact the laboratory to request additi on of HIV-1 RNA detection / quantification test. Specimen Anatomical Collection Method Collection Time Receive d Time (Source) Location / / Volume Laterality Blood (Blood, 12/20/2021 11:34 12/20/2021 6:27 Venous) AM ADMINISTRATIVE VOLUNTEER PM ADMINISTRATIVE VOLUNTEER Cheikh Gautam M.D. LAB MICROBIOLOGY - BLOOD ORD ERAKAMALJIT Performing Organization Address City/State/ZIP Code Phon e Number [facility]- [address] [place] [address], [place] [phone] [place] [address] System [address] HBs Antigen , Serum (12/20/2021 11:34 AM ADMINISTRATIVE VOLUNTEER) [facility] Method Time Signature HBs Antigen Non reactive Non reactive 12/20/2021 [facility] , S 4:50 PM ADMINISTRATIVE VOLUNTEER Specimen Anatomical Collection Method Collection Time Receive d Time (Source) Location / / Volume Laterality Blood (Blood, 12/20/2021 11:34 12/20/2021 3:49 Venous) AM ADMINISTRATIVE VOLUNTEER PM ADMINISTRATIVE VOLUNTEER Cheikh Gautam M.D. LAB MICROBIOLOGY - BLOOD ORD ERAKAMALJIT Performing Organization Address City/State/ZIP Code Phon e Number [facility]- [address] [place] [address] [facility] [place], [place] [id number] [place] [address] (ABNORMAL) CBC without Differential (12/20/2021 11:34 AM ADMINISTRATIVE VOLUNTEER) [facility] Method Time Signature Hemoglobin 14.1 11.6 - 12/20/2021 [facility] 15.0 g/dL 11:44 AM ADMINISTRATIVE VOLUNTEER Hematocrit 41.0 35.5 - 12/20/2021 [facility] 44.9 % 11:44 AM ADMINISTRATIVE VOLUNTEER Erythrocytes 4.91 3.92 - 12/20/2021 [facility] 5.13 11:44 AM ADMINISTRATIVE VOLUNTEER x10(12)/L MCV 83.5 78.2 - 12/20/2021 [facility] 97.9 fL 11:44 AM ADMINISTRATIVE VOLUNTEER RBC Distrib Width 11.7 (L) 12.2 - 12/20/2021 [facility] 16.1 % 11:44 AM ADMINISTRATIVE VOLUNTEER Platelet Count 360 157 - 371 12/20/2021 [facility] x10(9)/L 11:44 AM ADMINISTRATIVE VOLUNTEER Leukocytes 11.1 (H) 3.4 - 9.6 12/20/2021 [facility] x10(9)/L 11:44 AM ADMINISTRATIVE VOLUNTEER Specimen Anatomical Collection Method Collection Time Receive d Time (Source) Location / / Volume Laterality Blood (Blood, 12/20/2021 11:34 12/20/2021 Venous) AM ADMINISTRATIVE VOLUNTEER 11:40 AM ADMINISTRATIVE VOLUNTEER Cheikh Gautam M.D. LAB BLOOD ADD-ON Performing Organization Address City/State/ZIP Code Phon e Number [facility]- [address] [place] [address] [place] [address] System in [place] [address] Antibody Screen, RBC (with reflex Antibody ID) (12/20/2021 11:34 AM ADMINISTRATIVE VOLUNTEER) P athologist Signature Antibody Screen NEG 12/20/2021 [facility] 5:16 PM ADMINISTRATIVE VOLUNTEER Specimen Anatomical Collection Method Collection Time Receive d Time (Source) Location / / Volume Laterality Blood (Blood, 12/20/2021 11:34 12/20/2021 3:49 Venous) AM ADMINISTRATIVE VOLUNTEER PM ADMINISTRATIVE VOLUNTEER Cheikh Gautam M.D. LAB BLOOD BANK TEST ORDERABL ES Performing Organization Address City/[facility]/ZIP Code Phon e Number [facility]- [address] [place] [address] [facility] - [address] ABORh, RBC (12/20/2021 11:34 AM ADMINISTRATIVE VOLUNTEER) P athologist Signature ABO Group O 12/20/2021 5:16 [facility] PM ADMINISTRATIVE VOLUNTEER Rh Type POS 12/20/2021 5:16 [facility] PM ADMINISTRATIVE VOLUNTEER Specimen Anatomical Collection Method Collection Time Receive d Time (Source) Location / / Volume Laterality Blood (Blood, 12/20/2021 11:34 12/20/2021 3:51 Venous) AM ADMINISTRATIVE VOLUNTEER PM ADMINISTRATIVE VOLUNTEER Cheikh Gautam M.D. LAB BLOOD BANK TEST ORDERABL ES Performing Organization Address City/State/ZIP Code Phon e Number [facility]- [address] [place] [address] [facility] - [address] Bacterial Culture, Aerobic + Susc, Urine (12/20/2021 11:26 AM ADMINISTRATIVE VOLUNTEER) [facility] Method Time Signature Urine Culture No growth 12/21/2021 [facility] after 1 day 8:40 AM ADMINISTRATIVE VOLUNTEER of incubation. Specimen Anatomical Collection Method Collection Time Receive d Time (Source) Location / / Volume Laterality Urine (Urine, 12/20/2021 11:26 12/20/2021 2:19 Midstream) AM ADMINISTRATIVE VOLUNTEER PM ADMINISTRATIVE VOLUNTEER Comment: Specimen Source Site: Urine Cheikh Gautam M.D. LAB MICROBIOLOGY - GENERAL O RDERABLES Performing Organization Address City/State/ZIP Code Phon e Number [facility]- [address] [place] [id number] [place] [address] [place] [address] System in [address] Urinalysis with Microscopic if Indicated (12/20/2021 11:26 AM ADMINISTRATIVE VOLUNTEER) P athologist Signature Source Urine, 12/20/2021 [facility] Urine, Clean 12:12 PM ADMINISTRATIVE VOLUNTEER Catch Clarity Clear Clear 12/20/2021 [facility] 12:12 PM ADMINISTRATIVE VOLUNTEER Color Yellow 12/20/2021 [facility] 12:12 PM ADMINISTRATIVE VOLUNTEER Comment: ----REFERENCE VALUE---- Colorless Yellow Ronda Blood Negative Negative 12/20/2021 12:12 PM ADMINISTRATIVE VOLUNTEER [facility] Nitrite Negative Negative 12/20/2021 12:12 PM ADMINISTRATIVE VOLUNTEER [facility] Leukocyte Esterase Negative Negative 12/20/2021 12:[address] [facility] Protein Negative mg/dL 12/20/2021 12:12 PM ADMINISTRATIVE VOLUNTEER [facility] Comment: ----REFERENCE VALUE---- Negative Trace Glucose Negative Negative mg/dL 12/20/2021 12:12 PM ADMINISTRATIVE VOLUNTEER O FRANSICO Ketone Negative Negative mg/dL 12/20/2021 12:12 PM ADMINISTRATIVE VOLUNTEER O FRANSICO Bilirubin Negative Negative 12/20/2021 12:12 PM ADMINISTRATIVE VOLUNTEER [facility] pH 6.0 5.0 - 8.0 12/20/2021 12:12 PM ADMINISTRATIVE VOLUNTEER [facility] Specific [place] 1.005 1.001 - 1.035 12/20/2021 12:12 PM ADMINISTRATIVE VOLUNTEER [facility] Urobilinogen 0.2 0.2 - 1.0 mg/dL 12/20/2021 12:[address] [facility] Specimen Anatomical Collection Method Collection Time Receive d Time (Source) Location / / Volume Laterality Urine (Urine, 12/20/2021 11:26 12/20/2021 Clean Catch) AM ADMINISTRATIVE VOLUNTEER 12:06 PM ADMINISTRATIVE VOLUNTEER Cheikh Gautam M.D. LAB URINE ORDERABLES Performing Organization Address City/State/ZIP Code Phon e Number [facility]- [address] [place] [address] [place] [address] System in [place] [address] documented in this encounter Visit Diagnoses Diagnosis Encounter For Supervision Of Other Stella l Unspecified Trimester (HCC) - Primary Examination Test With Positive Result (HCC) documented in this encounter Care Teams Surveillance Agent Relationship Specialty Start Date End Date Ben Arce M.D. PCP - General Family Medicine 01/13/[address] [place] [address] documented as of this encounter
--- OUTSIDE RECORDS SUMMARY | 2022-06-28 07:24 | XMS_ITS | Encounter Summary ---
:1990 Author Organization [facility] Address [address] [place] [address] Care Team Providers Name Role Phone Ben Arce M.D. Primary Care Provider Encounter Details Date Type Department Care Team Description 03/27/2022 Ancillary Procedure Department of Cheikh Gautam For Obstetrics and Minoo Garcia Supervision O f Other Gynecology in Normal [place], [place] Unspecified [address] Trimester (HCC) [place] [address] Social History Tobacco Use Types [...] do you attend yarsani or Never 2021 tenriism services? Do you [...] at Date Recorded Female 12/02/2021 5:19 PM TELECOM COORDINATOR documented as of this encounter Plan [...] documented as of this encounter Care Teams Blow Down Helper Relationship Specialty Start Date End Date Ben Arce M.D. PCP - General Family Medicine 01/13/21 [address] [facility] [place] [address] documented as of this encounter
--- OUTSIDE RECORDS SUMMARY | 2022-06-28 07:24 | XMS_ITS | Encounter Summary ---
:1990 Author Organization [facility] Address [address] [place] [address] Care Team Providers Name Role Phone Ben Arce M.D. Primary Care Provider Reason for Visit Reason Comments Hand Injury Medical Information Encounter Details Date Type Department Care Team Description 02/11/2022 Nurse Triage Department of [facility] Rylie Hightower Hand Injury; Medical Medicine in [place], [place] [address] [place] [address] [phone] Social History Tobacco Use Types Packs/Day Years [...] do you attend baptism or Never 2021 voodoo services? Do you [...] Date Recorded Female 12/02/2021 5:19 PM DRY PRESS OPERATOR HELPER documented as of this encounter Miscellaneous [...] or deformed) Protocols used: HAND AND WRIST [id number] documented in this encounter Plan of Treatment Not on filedocumented as of this encounter Visit Diagnoses Not on filedocumented in this encounter Additional Health Concerns Assessment Noted Time PHQ-9 Depression Total Score: 4 12/20/2021 10:52 AM CS T documented as of this encounter Care Teams Perinatal Educator Relationship Specialty Start Date End Date Ben Arce M.D. PCP - General Family Medicine 01/13/[address] [place] [address] documented as of this encounter
--- OUTSIDE RECORDS SUMMARY | 2022-06-28 07:24 | XMS_ITS | Encounter Summary ---
:1990 Author Organization [facility] Address [address] [place] [address] Care Team Providers Name Role Phone Ben Arce M.D. Primary Care Provider Reason for Referral Outpatient (Routine) - Authorized Specialty Diagnoses / Procedures Referred By Contact Refer red To Contact Obstetrics and Cheikh Gautam [facility] Gynecology Minoo Referral ID Status Reason Start Date Expiration Date Visits V isits Requested Authorized [id number] Authorized 12/20/2021 12/20/2022 15 15 Scheduling Instructions Every 4 weeks until 28 week gestation. Then every 2 weeks until 36 week gestati on. Then every 1 week until 40+ week gestati on. NG PLANT OPERATOR Reason for Visit Reason Comments Initial Visit 7w 3d Outpatient (Routine) - Closed Specialty Diagnoses / Procedures Referred By Contact Refer red To Contact Obstetrics and Diagnoses Examination Test With Positive Result (HCC) Terrence Swenson M.D. [facility] Gynecology [address] [place] [address] Referral ID Status Reason Start Date Expiration Date Visits Requ ested Visits Authorized [id number] Closed 12/01/2021 12/01/2022 1 1 Encounter Details Date Type Department Care Team Description 12/20/2021 Initial Department of Obstetrics [place] in [place], [place]: 6w1d and Gynecology in [place].DMaribell [place], [place] [address] [place] [address] Social History Tobacco Use Types Packs/Day [...] do you attend buddhist or Never 2021 buddhist services? Do you [...] at Date Recorded Female 12/02/2021 5:19 PM PAVING PLANT OPERATOR documented as of this encounter Last Filed Vital Signs Vital Sign Reading Time Taken Comments Blood Pressure 136/80 12/20/2021 10:52 AM PAVING PLANT OPERATOR Pulse - - Temperature - - Respiratory Rate - - Oxygen Saturation - - Inhaled Oxygen Concentration - - Weight 69.2 kg (152 lb 8.9 oz) 12/20/2021 10:52 AM PAVING PLANT OPERATOR Height - - Body Mass Index 28.8 12/09/2021 8:31 AM PAVING PLANT OPERATOR documented in this encounter Progress Notes Cheikh [...] and Family: Twice a week ??? Attends Zoroastrian Services: Never ??? Active Member of Clubs [...] Vaccinations: COVID complete but needs booster/Flu declines Denial Resolution Specialist: Pap NIL w/ neg HPV 11/2021 Aneuploidy screening/Carrier Screening: declines Preeclampsia prevention: aspirin to start at 12 weeks FAS: 28 week labs: TDAP /Rhogam GBS Growth Ultrasounds: surveillance: Presentation (36 weeks): Del planning: PPBC: Problems: 1. Hx preeclampsia: aspirin to start at 12 weeks. Need to get baseline preE labs 2. Hx GDM: Early A1C ordered NG PLANT OPERATOR documented in this encounter Plan of [...] Referral Routine 15 [facility] Gynecology office starting 0 12/20/2021 visit (clinic) [...] US PROCEDURES Hemoglobin A1c (12/20/2021 11:34 AM PAVING PLANT OPERATOR) P athologist Signature Hemoglobin A1c, 5.2 4.2 - 5.6 12/20/2021 [facility] B % 12:27 PM PAVING PLANT OPERATOR Specimen Anatomical Collection Method Collection Time Receive d Time (Source) Location / / Volume Laterality Blood (Blood, 12/20/2021 11:34 12/20/2021 Venous) AM PAVING PLANT OPERATOR 11:40 AM PAVING PLANT OPERATOR Cheikh Gautam M.D. LAB BLOOD ADD-ON Performing Organization Address City/State/ZIP Code Phon e Number [facility]- [address] [place] [address] [facility] [place] [address] System in [place] [address] documented in this [...] documented as of this encounter Care Teams Outpatient Physical Therapist Relationship Specialty Start Date End Date Ben Arce M.D. PCP - General Family Medicine 01/13/[address] [place] [address] documented as of this encounter
--- OUTSIDE RECORDS SUMMARY | 2022-06-28 07:24 | XMS_ITS | Encounter Summary ---
:1990 Author Organization [facility] [place] [facility] Address [address] [place] [address] Care Team Providers Name Role Phone Ben Arce M.D. Primary Care Provider Encounter Details Date Type Department Care Team Description 03/31/2022 Hospital Encounter Department of Cheikh Gautam Laboratory Medicine Minoo Garcia ([facility]) in [place], [place] [address] [place] [phone] Social History Tobacco Use Types Packs/Day Years [...] do you attend mu-ism or Never 2021 sabianist services? 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 [...] M.D. LAB URINE ORDERABLES Performing Organization Address City/[facility]/ZIP Code Phon e Number [place] [address] [place], [place] [address] [facility] [place] [address] ALT (Alanine Aminotransferase) (03/31/2022 5:31 [...] M.D. LAB BLOOD ADD-ON Performing Organization Address City/[facility]/ZIP Code Phon e Number [place] [address] [place], [place] [address] [facility] [place] [address] AST (Aspartate Aminotransferase) (03/31/2022 5:31 [...] M.D. LAB BLOOD ADD-ON Performing Organization Address City/[facility]/ZIP Code Phon e Number [address] [address] [facility] [place] [address] (ABNORMAL) Creatinine with Estimated GFR (03/31/2022 5:31 PM CDT) Analysis Performed At Patho logist Time Signature Creatinine 0.58 (L) 0.59 - 03/31/2022 [facility] 1.04 mg/dL 5:59 PM CDT eGFR-Black/Afri >90 >=60 03/31/2022 [facility] can Azerbaijani mL/min/BSA 5:59 PM CDT Comment: ----ADDITIONAL INFORMATION---- [...] Organization Address City/State/ZIP Code Phon e Number [facility]- [address] [place], [place] [address] [place] [address] [place] [address] [facility] [address] [place] documented in this encounter Visit Diagnoses Diagnosis High Risk (HCC) documented in this encounter Additional Health Concerns Assessment Noted Time PHQ-9 Depression Total Score: 4 12/20/2021 10:52 AM CS T documented as of this encounter Care Teams Ammunition Assembly I Laborer Relationship Specialty Start Date End Date Ben Arce M.D. PCP - General Family Medicine 01/13/[address] [place] [phone] documented as of this encounter
--- OUTSIDE RECORDS SUMMARY | 2022-06-28 07:24 | XMS_ITS | Encounter Summary ---
:1990 Author Organization [facility] Address [address] [place] [address] Care Team Providers Name Role Phone Ben Arce M.D. Primary Care Provider Reason for Visit Reason Comments Routine Visit 16 2/7 wk ob check pelvic/lo wer back pain 7/10 pain scale, needs referral to chiropract or Outpatient (Routine) - Authorized Specialty Diagnoses / Procedures Referred By Contact Refer red To Contact Obstetrics and Cheikh Gautam [facility] william Gynecology M.DMaribell Referral ID Status Reason Start Date Expiration Date Visits V isits Requested Authorized [id number] Authorized 12/20/2021 12/20/2022 15 15 Encounter Details Date Type Department Care Team Description 03/01/2022 Routine Department of Terrence Swenson [place] cy Examination Test With Positive Result (HCC) (Primary Dx); Obstetrics and M.D. Encounter For Supervision Of Normal [place]reg ro[place] Unspecified Trimester (HCC) Gynecology in [address] [place], [place] [phone] [place], [place] [phone] [address] (Work) [phone] Social History Tobacco Use Types Packs/Day Years [...] do you attend lutheran or Never 2021 denominational services? Do you belong to any clubs or No 11/20/2021 organizations such as lutheran groups, unions, [email or web address] or athletic groups, or school groups? How [...] at Date Recorded Female 12/02/2021 5:19 PM SITE SUPERVISOR documented as of this encounter Last [...] documented as of this encounter Care Teams Gun Welder Relationship Specialty Start Date End Date Ben Arce M.D. PCP - General Family Medicine 01/13/[address] [place] [address] documented as of this encounter
--- OUTSIDE RECORDS SUMMARY | 2022-06-28 07:24 | XMS_ITS | Encounter Summary ---
:1990 Author Organization [facility] Address [address] [place] [address] Care Team Providers Name Role Phone Ben Arce M.D. Primary Care Provider Reason for Visit Reason Comments Routine Visit Patient seen in L&D yesterda y for decreased movement and spotting Outpatient (Routine) - Authorized Specialty Diagnoses / Procedures Referred By Contact Refer red To Contact Obstetrics and Cheikh Gautam [facility] Gynecology M.DMaribell Referral ID Status Reason Start Date Expiration Date Visits V isits Requested Authorized [id number] Authorized 12/20/2021 12/20/2022 15 15 Encounter Details Date Type Department Care Team Description 04/18/2022 Routine Department of Rylie Mcdowell, 23 Weeks Gestation Obstetrics and M.D. (FORMERLY [facility]) Gynecology in [address] (Primary Dx) [place] [address] [address] [facility] [address] [place], [place] [phone] [address] (Work) [phone] Social History Tobacco Use Types Packs/Day Years [...] do you attend cheondoism or Never 2021 christian services? Do you [...] Date Recorded Female 12/02/2021 5:19 PM MOLD CLEANER documented as of this encounter Last [...] documented as of this encounter Care Teams Warp Dyeing Vat Tender Relationship Specialty Start Date End Date Ben Arce M.D. PCP - General Family Medicine 01/13/[address] [facility] [place] [address] documented as of this encounter
--- OUTSIDE RECORDS SUMMARY | 2022-06-28 07:24 | XMS_ITS | Encounter Summary ---
:1990 Author Organization [facility] Address [address] [place] [address] Care Team Providers Name Role Phone Ben Arce M.D. Primary Care Provider Reason for Visit Reason Comments Med Refill Encounter Details Date Type Department Care Team Description 11/24/2021 Refill Department of Family Medicine Ben Maynard M.D. Med Refill in [facility] [address] [place] [phone] (Wo rk) Social History Tobacco Use Types [...] do you attend sabianism or Never 2021 scientology services? Do you [...] at Date Recorded Female 12/02/2021 5:19 PM OWNER documented as of this encounter Plan of Treatment Not on filedocumented as of this encounter Visit Diagnoses Not on filedocumented in this encounter Care Teams Faculty Member Relationship Specialty Start Date End Date Ben Arce M.D. PCP - General Family Medicine 01/13/[address] [place] [address] documented as of this encounter
--- OUTSIDE RECORDS SUMMARY | 2022-06-28 07:24 | XMS_ITS | Encounter Summary ---
:1990 Author Organization [facility] Address [address] [place] [address] Care Team Providers Name Role Phone Ben Arce M.D. Primary Care Provider Reason for Visit Reason Comments Nausea Vomiting During Auth/Cert Specialty Diagnoses / Procedures Referred By Contact Refer red To Contact Diagnoses . Procedures . Referral ID Status Reason Start Date Expiration Date Visits Requ ested Visits Authorized [id number] 1 1 Encounter Details Date Type Department Care Team Description 04/28/2022 Hospital Encounter [facility] Rylie Mcdowell Encounte r [facility]y Supervision Of [facility], [place] [id number] [facility] Normal Floor [place], [place] Unspecified [address] [place] [address] Trimester (HCC) [place], [place] [phone] [address] (Work) [phone] Social History Tobacco Use Types Packs/Day Years [...] do you attend druze or Never 2021 hoahaoism services? 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 [...] 8.0 04/28/2022 11:36 AM CDT NPRG Specific Pablo 1.015 1.001 - 1.035 04/28/2022 11:36 AM [...] Organization Address City/State/ZIP Code Phon e Number [place] [address] [address] [place], [place] [address] [address] [place] [address] Influenza A/B, SARS CoV-2, PCR, Rapid, Varies (04/28/2022 8:48 AM CDT) [facility] Method Time Signature Influenza A, Negative Negative 04/28/2022 NPRG PCR, Rapid, V 9:26 AM CDT Influenza B, Negative Negative 04/28/2022 NPRG PCR, Rapid, V 9:26 AM CDT SARS CoV-2, Undetected Undetected 04/28/2022 NPRG PCR, Rapid, V 9:26 AM CDT Comment: ----ADDITIONAL INFORMATION---- This RT-PCR test was performed using the Carissa SARS-CoV-2 and Influenza A/B Reagent assay from [employer], which has received Emergency Use Authori zation(EUA) by the U.S. Food and Drug Administration . Fact sheets for this Emergency Use Autho rization (EUA) assay can be found at the following link s: For Healthcare Providers: https://www.fda.gov/media/249337/downloa d For Patients: https://www.fda.gov/media/870749/downloa d Infl A/B, SARS CoV-2, PCR, Source Swab, Nasopharynx 04/28/2022 9:02 AM CDT NPRG Specimen Anatomical Collection Method Collection Time Receive d Time (Source) Location / / Volume Laterality Varies 04/28/2022 8:48 AM 9:02 CDT AM CDT Rylie Mcdowell M.D. LAB MICROBIOLOGY - GENERAL O RDERABLES Performing Organization Address City/State/ZIP Code Phon e Number [address] [address] [address] [place] [address] documented in this encounter Visit Diagnoses [...] documented as of this encounter Care Teams Duster Tender Relationship Specialty Start Date End Date Ben Arce M.D. PCP - General Family Medicine 01/13/[address] [place] [phone] documented as of this encounter
--- OUTSIDE RECORDS SUMMARY | 2022-06-28 07:24 | XMS_ITS | Encounter Summary ---
:1990 Author Organization [facility] Address [address] [place] [address] Care Team Providers Name Role Phone Ben Arce M.D. Primary Care Provider Encounter Details Date Type Department Care Team Description 12/20/2021 Silent Schedule Department of Terrence Swenson, Pregnanc y Examination Obstetrics and M.D. Test With Positive Gynecology in [address] [place], [place] [address] [address] [place], [place] [phone] [address] (Work) [phone] Social History Tobacco Use Types Packs/Day Years [...] you attend roman catholic or Never 2021 hindu services? Do you [...] for the very basics like Not v dia hard 11/20/2021 food, housing, medical care, and [...] at Date Recorded Female 12/02/2021 5:19 PM ADOLESCENT COORDINATOR documented as of this encounter Plan of Treatment Not on filedocumented as of this encounter Procedures Procedure Name Priority Date/Time Associated Comments Diagnosis US OB FIRST RAD - Routine 12/20/2021 10:50 Results fo r this TRIMESTER (most inpatients AM ADOLESCENT COORDINATOR Examination Test procedu re are in and all With Positive the results outpatients) Result section. documented in this encounter Results US OB First Trimester (12/20/2021 10:50 AM ADOLESCENT COORDINATOR) Anatomical Region Laterality Modality Body, Ultrasound OB RST LOS, Ultrasound ARZ LOS N/A Ultrasound Specimen (Source) Anatomical Collection Method Collection Time Re ceived Time Location / / Volume Laterality 12/20/2021 12:31 PM ADOLESCENT COORDINATOR Impressions 12/20/2021 12:34 PM ADOLESCENT COORDINATOR Single, viable, intrauterine gestation w ith CARLOS of August 14, 2022 (not consistent with menstrual dating). Narrative 12/20/2021 12:34 PM ADOLESCENT COORDINATOR EXAM: US OB FIRST TRIMESTER COMPARISON: None Physician: Dr. Swenson FINDINGS: Gestational age and CARLOS by LMP or OB/EHR assignment: 7 w 3 d, CARLOS: 08/05/2022 INTRAUTERINE Pole: Normal, [place]-Rump Length: 0 .50 cm Gestational Sac: Normal [...] 3 d, CARLOS: 08/05/2022 INTRAUTERINE Pole: Normal, [place]-Rump Length: 0 .50 cm Gestational Sac: Normal [...] documented as of this encounter Care Teams Wrapper Sorter Relationship Specialty Start Date End Date Ben Arce M.D. PCP - General Family Medicine 01/13/21 [address] [place] [address] documented as of this encounter
--- OUTSIDE RECORDS SUMMARY | 2022-06-28 07:24 | XMS_ITS | Encounter Summary ---
:1990 Author Organization [facility] Address [address] [place] [address] Care Team Providers Name Role Phone Ben Arce M.D. Primary Care Provider Encounter Details Date Type Department Care Team Description 12/20/2021 Orders Only Department of Obstetrics and Gau Terrence zamarripa M.D. Gynecology in [address] [address] [place] [address] [phone] Social History Tobacco Use Types Packs/Day Years [...] do you attend anabaptist or Never 2021 episcopal services? Do you [...] at Date Recorded Female 12/02/2021 5:19 PM CRIMINAL INTELLIGENCE SPECIALIST documented as of this encounter Plan of Treatment Not on filedocumented as of this encounter Visit Diagnoses Not on filedocumented in this encounter Additional Health Concerns Assessment Noted Time PHQ-9 Depression Total Score: 4 12/20/2021 10:52 AM CS T documented as of this encounter Care Teams Medical Equipment Technician Relationship Specialty Start Date End Date Ben Arce M.D. PCP - General Family Medicine 01/13/[address] [place] [phone] documented as of this encounter
--- OUTSIDE RECORDS SUMMARY | 2022-06-28 07:24 | XMS_ITS | Encounter Summary ---
:1990 Author Organization [facility] Address [address] [place] [address] Care Team Providers Name Role Phone Ben Arce M.D. Primary Care Provider Reason for Referral Outpatient (Routine) - Closed Specialty Diagnoses / Procedures Referred By Contact Refer red To Contact Obstetrics and Diagnoses Examination Test With Positive Result (HCC) Terrence Swenson M.D. [facility] Gynecology [address] [address] Referral ID Status Reason Start Date Expiration Date Visits Requ ested Visits Authorized [id number] Closed 12/01/2021 12/01/2022 1 1 Y DIPPER HAND Specialty Diagnoses / Procedures Referred By Contact Refer red To Contact Terrence Swenson M.D. [facility] Region [address] [place] [phone] Referral ID Status Reason Start Date Expiration Date Visits Requ ested Visits Authorized Y DIPPER HAND Encounter Details Date Type Department Care Team Description 12/01/2021 Clinical Communication Department of Terrence Swenson Obstetrics and Minoo Gynecology in [address] [place], [place] [address] [place] [address] [place], [place] [phone] [address] (Work) [phone] Social History Tobacco Use Types Packs/Day Years [...] do you attend anabaptist or Never 2021 mormon services? Do you [...] at Date Recorded Female 12/02/2021 5:19 PM CANDY DIPPER HAND documented as of this encounter Miscellaneous Notes [...] following references were used: Nursing Clinical Judgement Y DIPPER HAND Telephone Encounter - Anisa White - 12/01/2021 12:26 PM CST Reason for Communication: Patient calling, had a positive home test and a clinic confirmedtest. LMP unknown. Patient is looking to transfer care from [place] Current Can Nursing/Provider leave a detailed message?: yes Did the patient refuse triage through Nurse line? (for symptom based concerns): Action Needed: Name of Medication (if relevant): Please send all scheduling replies to scheduling pool. Y DIPPER HAND documented in this encounter Plan of [...] US OB First Trimester (12/20/2021 10:50 AM CANDY DIPPER HAND) Anatomical Region Laterality Modality Body, Ultrasound OB RST LOS, Ultrasound ARZ LOS N/A Ultrasound Specimen (Source) Anatomical Collection Method Collection Time Re ceived Time Location / / Volume Laterality 12/20/2021 12:31 PM CANDY DIPPER HAND Impressions 12/20/2021 12:34 PM CANDY DIPPER HAND Single, viable, intrauterine gestation w ith CARLOS of August 14, 2022 (not consistent with menstrual dating). Narrative 12/20/2021 12:34 PM CANDY DIPPER HAND EXAM: US OB FIRST TRIMESTER COMPARISON: None Physician: Dr. Swenson FINDINGS: Gestational age and CARLOS by LMP or OB/EHR assignment: 7 w 3 d, CARLOS: 08/05/2022 INTRAUTERINE Pole: Normal, [place]-Rump Length: 0 .50 cm Gestational Sac: Normal [...] 3 d, CARLOS: 08/05/2022 INTRAUTERINE Pole: Normal, [place]-Rump Length: 0 .50 cm Gestational Sac: Normal [...] 14, 2022 (not consistent with menstrual dating). Terrecne Swenson M.D. IMG OB US PROCEDURES documented in this encounter Visit Diagnoses Diagnosis Examination Test With Positive Result (HCC) - Primary Examination Test With Positive Result (HCC) documented in this encounter Care Teams Mechanical Fitter Relationship Specialty Start Date End Date Ben Arce M.D. PCP - General Family Medicine 01/13/[address] [place], [place] [address] documented as of this encounter
--- OUTSIDE RECORDS SUMMARY | 2022-06-28 07:24 | XMS_ITS | Encounter Summary ---
:1990 Author Organization [facility] Address [address] [place] [address] Care Team Providers Name Role Phone Ben Arce M.D. Primary Care Provider Encounter Details Date Type Department Care Team Description 11/24/2021 Orders Only Department of Robert, Erika Hammer, Abnormal L aboratory Obstetrics and BREAD BAKER, C.N.P., Results (Samina pendleton Dx) Gynecology in [place], [place] [address] [place] [phone] Social History Tobacco Use Types Packs/Day Years [...] do you attend anglican or Never 2021 oriental orthodox services? Do [...] at Date Recorded Female 12/02/2021 5:19 PM MOTOR ASSEMBLY SUPERVISOR documented as of this encounter Plan of Treatment Not on filedocumented as of this encounter Results (ABNORMAL) hCG (Human Chorionic Gonadotropin), Quantitative, (11/28/2021 4:00 PM MOTOR ASSEMBLY SUPERVISOR) P athologist Signature HCG, 94 (H) <5 IU/L 11/28/2021 NPRG Quantitative, 7:47 PM MOTOR ASSEMBLY SUPERVISOR , P Comment: Biotin has been identified [...] 11/28/2021 4:00 PM 11/28/19 22 6:56 Venous) MOTOR ASSEMBLY SUPERVISOR PM MOTOR ASSEMBLY SUPERVISOR Erika Jones APRN, C.N.P., M.S.N. LAB BLOOD ADD-ON Performing Organization Address City/State/ZIP Code Phon e Number [facility]- [address] [place], [place] [address] [place] [address] [place] [address] [facility] [address] [place] documented in this encounter Visit Diagnoses Diagnosis Abnormal Laboratory Results - Primary documented in this encounter Care Teams Business Architect Relationship Specialty Start Date End Date Ben Arce M.D. PCP - General Family Medicine 01/13/[address] [place] [phone] documented as of this encounter
--- OUTSIDE RECORDS SUMMARY | 2022-06-28 07:24 | XMS_ITS | Encounter Summary ---
:1990 Author Organization [facility] Address [address] [place] [address] Care Team Providers Name Role Phone Ben Arce M.D. Primary Care Provider Reason for Visit Reason Comments Routine Visit 20weeks Outpatient (Routine) - Authorized Specialty Diagnoses / Procedures Referred By Contact Refer red To Contact Obstetrics and Cheikh Gautam [facility] Gynecology Minoo Referral ID Status Reason Start Date Expiration Date Visits V isits Requested Authorized [id number] Authorized 12/20/2021 12/20/2022 15 15 Encounter Details Date Type Department Care Team Description 03/27/2022 Routine Department of Cheikh Gautam k (HCC) (Primary Dx); Obstetrics and Minoo Garcia Encounter For Supervision Of Normal Unspecified Trimester (HCC) Gynecology in [place], [place] [address] [place] [address] Social History Tobacco Use Types Packs/Day Years [...] do you attend judaism or Never 2021 lutheran services? Do you [...] at Date Recorded Female 12/02/2021 5:19 PM BOAT DECKHAND documented as of this encounter Last Filed [...] -Gonorhrea/chlamydia urine today -Patient is transferring to [place] because it is closer -Problem list updated [...] Vaccinations: COVID complete but needs booster/Flu declines Cmm Technician: Pap NIL w/ neg HPV 11/2021 [...] she told me she is transferring to [place] because it is closer. documented in this encounter Plan of Treatment Not on filedocumented as of this encounter Procedures Procedure Name Priority Date/Time Associated Diagnosis Comme nts CHLAMYDIA/GONORRHOE Routine 03/27/2022 10:42 AM High Risk Preg roberta Results for this AE AMPLIFIED RNA CDT ([facility]) procedure a re in the results section. [...] M.D. LAB URINE ORDERABLES Performing Organization Address City/[facility]/ZIP Code Phon e Number [place] [address] [address] [place], [place] [address] [place] [facility] [place] [phone] ALT (Alanine Aminotransferase) (03/31/2022 5:31 PM CDT) Patholo gist Method Time Signature Alanine 10 7 - 45 03/31/2022 NPRG Aminotransferase U/L 5:59 PM CDT (ALT), P Specimen Anatomical Collection Method Collection Time Receive d Time (Source) Location / / Volume Laterality Blood (Blood, 03/31/2022 5:31 PM 03/31/20 5:34 Venous) CDT PM CDT Cheikh Gautam M.D. LAB BLOOD ADD-ON Performing Organization Address City/[facility] Phon e Number [address] [address] [place] [facility] [place] [phone] AST (Aspartate Aminotransferase) (03/31/2022 5:31 PM CDT) [facility] Method Time Signature Aspartate 13 8 - 43 03/31/2022 NPRG Aminotransferase U/L 5:59 PM CDT (AST), P Specimen Anatomical Collection Method Collection Time Receive d Time (Source) Location / / Volume Laterality Blood (Blood, 03/31/2022 5:31 PM 03/31/20 22 5:34 Venous) CDT PM CDT Cheikh Gautam M.D. LAB BLOOD ADD-ON Performing Organization Address City/[facility]/ZIP Code Phon e Number [place] [address] [address] [place], [place] [address] [place] [facility] [place] [phone] (ABNORMAL) Creatinine with Estimated GFR (03/31/2022 5:31 PM CDT) Analysis Performed At [facility] logist Time Signature Creatinine 0.58 (L) 0.59 - 03/31/2022 NPRG 1.04 mg/dL 5:59 PM CDT eGFR-Black/Afri >90 >=60 03/31/2022 NPRG can Cymro mL/min/BSA 5:59 PM CDT Comment: ----ADDITIONAL INFORMATION---- [...] M.D. LAB BLOOD ADD-ON Performing Organization Address City/[facility] Phon e Number [facility]- [address] [place] [address] [place] [address] [place] [address] Chlamydia / Gonorrhoeae Amplified RNA (03/27/2022 10:42 AM CDT) [facility] gist Method Time Signature Source Urine, [...] - GENERAL O RDERABLES Performing Organization Address City/[facility]/ZIP Code Phon e Number [facility]- [address] [place] [address] [facility] [place] [address] System in [place] [address] [facility] documented in this encounter Visit Diagnoses Diagnosis High Risk (HCC) - Primary Encounter For Supervision Of Normal Preg roberta Unspecified Trimester (HCC) documented in this encounter Additional Health Concerns Assessment Noted Time PHQ-9 Depression Total Score: 4 12/20/2021 10:52 AM CS T documented as of this encounter Care Teams Hydraulic Modeling Engineer Relationship Specialty Start Date End Date Ben Arce M.D. PCP - General Family Medicine 01/13/[address] [place] [address] documented as of this encounter
--- OUTSIDE RECORDS SUMMARY | 2022-06-28 07:24 | XMS_ITS | Encounter Summary ---
:1990 Author Organization [facility] Address [address] [place] [address] Care Team Providers Name Role Phone Ben Arce M.D. Primary Care Provider Reason for Referral Outpatient (Routine) - Authorized Specialty Diagnoses / Procedures Referred By Contact Refer red To Contact Diagnoses Pain Back Pain Neck Ben Arce M.D. External, Referring [address] [place] [address] Referral ID Status Reason Start Expiration Visits Visits Date Date Requested Authorized [id number] Authorized Patient 03/01/2022 03/01/2023 1 1 Preference Reason for Visit Reason Comments Outside Order Insurance Referral Encounter Details Date Type Department Care Team Description 03/01/2022 Clinical Communication Department of Ben Arec, Outs [facility] Order Family Medicine in [place] (Insurance Referral) [place] [address] [place] [address] [facility] [phone] [phone] Social History Tobacco Use Types Packs/Day Years [...] or relatives? How often do you attend yazidism or Never 2021 sabianism services? Do you belong to any clubs or No 11/20/2021 organizations such as yazidism groups, unions, fraRkylin or athletic groups, or school groups? How [...] at Date Recorded Female 12/02/2021 5:19 PM SOCIAL MEDIA EXECUTIVE documented as of this encounter Miscellaneous Notes Telephone Encounter - Jossie Ramos - 03/06/2022 8:41 AM CDT [facility] restricted referral faxed 03/02/22 with office visit notes. Also faxed [facility] restricted forms for OB care [facility]. Thank you, Jossie Referrals 03/02/22 Lore called from [facility] [phone]. This referral has been processed. 03/03/22sla. Telephone Encounter - Ben Arce M.D. - 03/01/2022 3:07 PM CDT Order signed. Telephone Encounter - Jossie Ramos - 03/01/2022 2:[address] Arce, ORDER/LAB/REFERRAL REQUEST: Name of test/referral/order requested: [facility] Dr. Med Donaldson i [id number] Reason for request: Back and neck pain Date needed: 02/26/22 Order pended to this encounter, once signed we can submit the Restricted [facility] referral for insurance. Thank you, Jossie Referrals 03/01/22 documented in this encounter Plan of Treatment Not on filedocumented as of this encounter Visit Diagnoses Diagnosis Pain Back - Primary Pain Neck documented in this encounter Additional Health Concerns Assessment Noted Time PHQ-9 Depression Total Score: 4 12/20/2021 10:52 AM CS T documented as of this encounter Care Teams Ekg Manager Relationship Specialty Start Date End Date Ben Arce M.D. PCP - General Family Medicine 01/13/[address] [place] [address] documented as of this encounter
--- OUTSIDE RECORDS SUMMARY | 2022-06-28 07:24 | XMS_ITS | Encounter Summary ---
:1990 Author Organization [facility] Address [address] [place] [address] Care Team Providers Name Role Phone Ben [...] Expiration Date Visits Requ ested Visits Authorized [id number] 1 1 Encounter Details Date Type Department Care Team Description 04/17/2022 Hospital Encounter [facility] Rylie Mcdowell, 23 Weeks Gestation [facility] ([facility]) [facility], [place] [address] [address] [place], [place] [phone] [address] (Work) [phone] Social History Tobacco Use Types Packs/Day Years [...] do you attend mormon or Never 2021 scientology services? Do you [...] at Date Recorded Female 12/02/2021 5:19 PM HEALTH CAREERS INSTRUCTOR documented as of this encounter Last [...] Category I tracing. No UTC's traced via [place]. RN palpated during one episode ofuterine cramping, [...] documented as of this encounter Care Teams Bridge Worker Relationship Specialty Start Date End Date Ben Arce M.D. PCP - General Family Medicine 01/13/[address] [place] [phone] documented as of this encounter
--- OUTSIDE RECORDS SUMMARY | 2022-06-28 07:24 | XMS_ITS | Encounter Summary ---
:1990 Author Organization [facility] Address [address] [place] [address] Care Team Providers Name Role Phone Ben Arce M.D. Primary Care Provider Reason for Visit Reason Comments Vomiting Pt presents with nausea and vomiting that began last evening at 1700. Has persisted all night. Pt is 6 weeks . Encounter Details Date Type Department Care Team Description 12/09/2021 Emergency [facility] Valerie Malone, Nause a And Vomiting (Primary Dx); Department M.D. Less Than 8 Weeks Gestation [address] [place] [phone] Social History Tobacco Use Types Packs/Day Years [...] do you attend congregational or Never 2021 jehovah's witness services? Do [...] at Date Recorded Female 12/02/2021 5:19 PM SNUFF MAKER documented as of this encounter Last Filed Vital Signs Vital Sign Reading Time Taken Comments Blood Pressure 126/87 12/09/2021 9:45 AM SNUFF MAKER Pulse 95 12/09/2021 10:00 AM SNUFF MAKER Temperature 37.2 ??C (99 ??F) 12/09/2021 10:00 AM SNUFF MAKER Respiratory Rate 14 12/09/2021 8:29 AM SNUFF MAKER Oxygen Saturation 99% 12/09/2021 10:00 AM SNUFF MAKER Inhaled Oxygen Concentration - - Weight 68.3 kg (150 lb 9.2 oz) 12/09/2021 8:31 AM SNUFF MAKER Height 155 cm (5' 1.02) 12/09/2021 8:31 AM SNUFF MAKER Body Mass Index 28.43 12/09/2021 8:31 AM SNUFF MAKER documented in this encounter Discharge Instructions Discharge InstructionsValerie Malone M.D. - 12/09/2021 9:29 AM CST If you are unable to keep yourself well hydrated at home, please feel free to return. F MAKER AttachmentsThe following attachments cannot be sent through [...] normal. ASSESSMENT/PLAN IMPRESSION AND PLAN Vomiting with zfuh-xm-ipslwsls dehydration during . I gave normal saline 1 L IV, [id number] mg IV, Zofran 4 mg IV. She [...] 8 Weeks Gestation Valerie Malone M.D. 12/09/21934 F MAKER documented in this encounter Plan of Treatment [...] 1,000 mL New Bag 12/09/2021 8:48 AM SNUFF MAKER 1,000 mL 1000 mL/hr 1,000 mL, intravenous, at 1,000 mL/hr, Administer over 1 Hours, Once, On Sun12/09/21 at 0836, For 1 dose ondansetron (PF) injection 4 mg (ZOFRAN) Given 12/09/2021 9:31 AM SNUFF MAKER 4 mg 4 mg, intravenous, Once, On Sun12/09/21 at 0921, For 1 dose pyridoxine (vitamin B6) injection 100 mg Given 12/09/2021 9:00 AM SNUFF MAKER 100 mg 100 mg, intravenous, Once, On Sun12/09/21 at 0836, For 1 dose sodium chloride 0.9 % injection 10 mL Given 12/09/2021 8:45 AM SNUFF MAKER 10 mL 10 mL, intravenous, As needed, [...] Recently Administered Medications Times are shown in SNUFF MAKER. Scheduled Medication Order 12/07/2021 12/08/2021 12/09/2021 NaCl [...] injection documented in this encounter Care Teams Supervisor Grading Relationship Specialty Start Date End Date Ben Arce M.D. PCP - General Family Medicine 01/13/[address] [place] [phone] documented as of this encounter
--- OUTSIDE RECORDS SUMMARY | 2022-06-28 07:24 | XMS_ITS | Encounter Summary ---
:1990 Author Organization [facility] Address [address] [place] [address] Care Team Providers Name Role Phone Ben Arce M.D. Primary Care Provider Encounter Details Date Type Department Care Team Description 12/20/2021 Hospital Encounter Department of Cheikh Gautam Laboratory Medicine Minoo Garcia Supervis ion Of Other in [facility] Unspecified [address] [place] [address] Social History Tobacco Use Types Packs/Day Years [...] do you attend jew or Never 2021 evangelical services? Do you [...] at Date Recorded Female 12/02/2021 5:19 PM SLEEVE IRONER documented as of this encounter Medications at [...] Encounter For Results for this , S SLEEVE IRONER Supervision Of Other procedu re are in Normal the results Unspecified section. Trimester HIV-1/-2 AG AND AB Routine 12/20/2021 11:34 AM Encounter For R esults for this SCRN, SLEEVE IRONER Supervision Of Other proce dure are in PLASMA Normal the results Unspecified section. Trimester SYPHILIS TOTAL AB Routine 12/20/2021 11:34 AM Encounter For Re sults for this W/ REFLEX S SLEEVE IRONER Supervision Of Other procedu re are in Normal the results Unspecified section. Trimester HBS ANTIGEN Routine 12/20/2021 11:34 AM Encounter For Results for this , S SLEEVE IRONER Supervision Of Other procedu re are in Normal the results Unspecified section. Trimester ABORH, RBC Routine 12/20/2021 11:34 AM Encounter For Results for this SLEEVE IRONER Supervision Of Other procedu re are in Normal the results Unspecified section. Trimester RUBELLA ANTIBODIES, Routine 12/20/2021 11:34 AM Encounter For Results for this IGG SLEEVE IRONER Supervision Of Other procedu re are in Normal the results Unspecified section. Trimester CBC WITHOUT Routine 12/20/2021 11:34 AM Encounter For Results for this DIFFERENTIAL, B SLEEVE IRONER Supervision Of Other proc edure are in Normal the results Unspecified section. Trimester ANTIBODY SCREEN, B Routine 12/20/2021 11:34 AM Encounter For R esults for this SLEEVE IRONER Supervision Of Other procedu re are in Normal the results Unspecified section. Trimester documented in this encounter Results Hepatitis C Virus Antibody Screen (12/20/2021 11:34 AM SLEEVE IRONER) P athologist Signature HCV Ab Scrn Negative Negative 12/21/2021 [facility] , S 8:10 AM SLEEVE IRONER Comment: Brusof-je-ajnaqq ratio is <1.00 . Specimen Anatomical Collection Method Collection Time Receive d Time (Source) Location / / Volume Laterality Blood (Blood, 12/20/2021 11:34 12/21/2021 6:40 Venous) AM SLEEVE IRONER AM SLEEVE IRONER Cheikh Gautam M.D. LAB MICROBIOLOGY - BLOOD ORD ERABLES Performing Organization Address City/[facility]/ZIP Code Phon e Number [facility] [address] [place] [address] [place] [address] [place] [address] Laboratory Medicine and Pathology [address] [place] Syphilis Total Ab w/ Reflex, Serum (12/20/2021 11:34 AM SLEEVE IRONER) Patholo gist Method Time Signature Syphilis Nonreactive Nonreactive 12/21/2021 [facility] Total Ab w/ 11:40 AM SLEEVE IRONER Reflex Comment: No serologic evidence of infection with T. pallidum (syphilis). ??Repeat testing may be cons idered in patients with suspected acute or primary syphilis in 2-4 weeks. For additional information on interpreta tion of the syphilis reverse algorithm and resul ts, see: [email or web address].p df Specimen Anatomical Collection Method Collection Time Receive d Time (Source) Location / / Volume Laterality Blood (Blood, 12/20/2021 11:34 12/20/2021 6:27 Venous) AM SLEEVE IRONER PM SLEEVE IRONER Cheikh Gautam M.D. LAB BLOOD ADD-ON Performing Organization Address City/[facility] Phon e Number [phone] [place] [address] System in [address] Rubella Antibodies, IgG (12/20/2021 11:34 AM SLEEVE IRONER) P athologist Signature Rubella Ab, Positive 12/21/2021 [facility] IgG, S 11:40 AM SLEEVE IRONER Comment: Results suggest response to immunization or prior exposure to the virus. ----REFERENCE VALUE---- Vaccinated: Positive (>=1.0 AI) Unvaccinated: Negative (<=0.7 AI) Rubella IgG Antibody Index 2.6 12/21/2021 11 :40 AM SLEEVE IRONER [facility] Specimen Anatomical Collection Method Collection Time Receive d Time (Source) Location / / Volume Laterality Blood (Blood, 12/20/2021 11:34 12/20/2021 6:27 Venous) AM SLEEVE IRONER PM SLEEVE IRONER Cheikh Gauatm M.D. LAB MICROBIOLOGY - BLOOD ORD ERABLES Performing Organization Address City/State/ZIP Code Phon e Number [facility]- [address] [place] [address] [phone] [place] [address] HIV-1/-2 Ag and Ab Scrn, Plasma (12/20/2021 11:34 AM SLEEVE IRONER) P athologist Signature HIV Ag/Ab Negative Negative 12/21/2021 [facility] Scrn, 11:40 AM SLEEVE IRONER P Comment: Negative result does not rule out HIV in fection. If exposure to HIV infection occurred <14 d ays ago, contact the laboratory to request additi on of HIV-1 RNA detection / quantification test. HIV-1 p24 Ag Scrn, P Negative Negative 12/21/2021 11:40 AM SLEEVE IRONER [facility] Comment: Negative result does not rule out HIV in fection. If exposure to HIV infection occurred <14 d ays ago, contact the laboratory to request additi on of HIV-1 RNA detection / quantification test. HIV-1 Ab Scrn, P Negative Negative 12/21/2021 11: 40 AM SLEEVE IRONER [facility] Comment: Negative result does not rule out HIV in fection. If exposure to HIV infection occurred <14 d ays ago, contact the laboratory to request additi on of HIV-1 RNA detection / quantification test. HIV-2 Ab Scrn, P Negative Negative 12/21/2021 11: 40 AM SLEEVE IRONER [facility] Comment: Negative result does not rule out HIV in fection. If exposure to HIV infection occurred <14 d ays ago, contact the laboratory to request additi on of HIV-1 RNA detection / quantification test. Specimen Anatomical Collection Method Collection Time Receive d Time (Source) Location / / Volume Laterality Blood (Blood, 12/20/2021 11:34 12/20/2021 6:27 Venous) AM SLEEVE IRONER PM SLEEVE IRONER Cheikh Gautam M.D. LAB MICROBIOLOGY - BLOOD ORD ERABLES Performing Organization Address City/State/ZIP Code Phon e Number [facility]- [address] [place] [address] [phone] [place] [address] System [address] HBs Antigen , Serum (12/20/2021 11:34 AM SLEEVE IRONER) [facility] Method Time Signature HBs Antigen Non reactive Non reactive 12/20/2021 AUST , S 4:50 PM SLEEVE IRONER Specimen Anatomical Collection Method Collection Time Receive d Time (Source) Location / / Volume Laterality Blood (Blood, 12/20/2021 11:34 12/20/2021 3:49 Venous) AM SLEEVE IRONER PM SLEEVE IRONER Cheikh Gautam M.D. LAB MICROBIOLOGY - BLOOD ORD ERABLES Performing Organization Address City/State/ZIP Code Phon e Number [facility]- [address] [place] [address] [facility] [place] [address] [facility] [address] (ABNORMAL) CBC without Differential (12/20/2021 11:34 AM SLEEVE IRONER) [facility] Method Time Signature Hemoglobin 14.1 11.6 - 12/20/2021 [facility] 15.0 g/dL 11:44 AM SLEEVE IRONER Hematocrit 41.0 35.5 - 12/20/2021 [facility] 44.9 % 11:44 AM SLEEVE IRONER Erythrocytes 4.91 3.92 - 12/20/2021 [place] 5.13 11:44 AM SLEEVE IRONER x10(12)/L MCV 83.5 78.2 - 12/20/2021 [facility] 97.9 fL 11:44 AM SLEEVE IRONER RBC Distrib Width 11.7 (L) 12.2 - 12/20/2021 [place] 16.1 % 11:44 AM SLEEVE IRONER Platelet Count 360 157 - 371 12/20/2021 [facility] x10(9)/L 11:44 AM SLEEVE IRONER Leukocytes 11.1 (H) 3.4 - 9.6 12/20/2021 [facility] x10(9)/L 11:44 AM SLEEVE IRONER Specimen Anatomical Collection Method Collection Time Receive d Time (Source) Location / / Volume Laterality Blood (Blood, 12/20/2021 11:34 12/20/2021 Venous) AM SLEEVE IRONER 11:40 AM SLEEVE IRONER Cheikh M Dain M.D. LAB BLOOD ADD-ON Performing Organization Address City/[facility]/ZIP Code Phon e Number [facility]- [address] [place] [address] [facility] [place] [address] System in [place] [address] Antibody Screen, RBC (with reflex Antibody ID) (12/20/2021 11:34 AM SLEEVE IRONER) P athologist Signature Antibody Screen NEG 12/20/2021 AUST 5:16 PM SLEEVE IRONER Specimen Anatomical Collection Method Collection Time Receive d Time (Source) Location / / Volume Laterality Blood (Blood, 12/20/2021 11:34 12/20/2021 3:49 Venous) AM SLEEVE IRONER PM SLEEVE IRONER Cheikh Gautam M.D. LAB BLOOD BANK TEST ORDERABL ES Performing Organization Address City/[facility]/ZIP [facility] Phon e Number [facility]- [address] [place] [address] [facility] [place], [place] [id number] [place] [address] [address] [facility] ABORh, RBC (12/20/2021 11:34 AM SLEEVE IRONER) P athologist Signature ABO Group O 12/20/2021 5:16 AUST PM SLEEVE IRONER Rh Type POS 12/20/2021 5:16 AUST PM SLEEVE IRONER Specimen Anatomical Collection Method Collection Time Receive d Time (Source) Location / / Volume Laterality Blood (Blood, 12/20/2021 11:34 12/20/2021 3:51 Venous) AM SLEEVE IRONER PM SLEEVE IRONER Cheikh Gautam M.D. LAB BLOOD BANK TEST ORDERABL ES Performing Organization Address City/[facility]/ZIP [facility] Phon e Number [facility]- [address] [place] [address] [facility] [place], [place] [phone] [place] [address] [address] [facility] documented in this encounter Visit Diagnoses Diagnosis Encounter For Supervision Of Other Stella l Unspecified Trimester (HCC) documented in this encounter Additional Health Concerns Assessment Noted Time PHQ-9 Depression Total Score: 4 12/20/2021 10:52 AM CS T documented as of this encounter Care Teams Certified Physician Assistant Relationship Specialty Start Date End Date Ben Arce M.D. PCP - General Family Medicine 01/13/[address] [place] [address] documented as of this encounter
--- OUTSIDE RECORDS SUMMARY | 2022-06-28 07:24 | XMS_ITS | Encounter Summary ---
:1990 Author Organization [facility] Address [address] [place] [address] Care Team Providers Name Role Phone Ben Arce M.D. Primary Care Provider Reason for Visit Reason Comments Hand Injury Encounter Details Date Type Department Care Team Description 02/11/2022 Emergency [place] [facility] Sigrid Forbes ontusion Hand Initial Department DMinoo Right (Primary Dx) [address] [place] [phone] [phone] (Wo rk) Social History Tobacco Use Types [...] do you attend religion or Never 2021 catholic services? Do you [...] at Date Recorded Female 12/02/2021 5:19 PM RENDERING EQUIPMENT TENDER documented as of this encounter Last [...] clinic by calling the appointment center at [phone]. Thank you for choosing [facility] for your care. It was a pleasure taking care of you today in our Emergency Department. AttachmentsThe following attachments cannot be sent through Care Everywhere.Hand Contusion Vpeo-ii-Tucj (Luxembourgish)documented in this encounter Medications at Time [...] Forbes M.D. - 02/11/2022 9:44 PM CDT [place] [facility] EMERGENCY DEPARTMENT ENCOUNTER Patient Name: Lulu Mata PCP: Ben Arce M.D. SUBJECTIVE CHIEF COMPLAINT/REASON FOR VISIT Hand Injury HISTORY OF PRESENT ILLNESS Lulu Mata is a 31 y.o. female presenting with right hand pain. She was at the [facility] today when her hand was shut [...] documented as of this encounter Care Teams Rv Repair Technician Relationship Specialty Start Date End Date Ben Arce M.D. PCP - General Family Medicine 01/13/[address] [place] [phone] documented as of this encounter
--- OUTSIDE RECORDS SUMMARY | 2022-06-28 07:24 | XMS_ITS | Encounter Summary ---
:1990 Author Organization [facility] Address [address] [place] [address] Care Team Providers Name Role Phone Ben Arce M.D. Primary Care Provider Reason for Referral Outpatient (Routine) - Authorized Specialty Diagnoses / Procedures Referred By Contact Refer red To Contact Diagnoses Subdermal Implantable Contraceptive Removal Rylie Mcdowell M.D. [facility] Procedures Subdermal Contraceptive Device [facility] [place] [address] Referral ID Status Reason Start Date Expiration Date Visits V isits Requested Authorized [id number] Authorized 12/01/2021 12/01/2022 1 1 LOPMENTAL BEHAVIORAL PHYSICIAN Reason for Visit Reason Comments nexplanon removal Early . LMP 10/29/21. Pt will see Dr. Swenson in [place] with [facility] for . Appointment Request (Routine) - Closed Specialty Diagnoses / Procedures Referred By Contact Refer red To Contact Obstetrics and Gynecology Referral ID Status Reason Start Date Expiration Date Visits Requ ested Visits Authorized [id number] Closed 11/29/2021 11/29/2022 1 1 Encounter Details Date Type Department Care Team Description 12/01/2021 Office Visit Department of Rylie Mcdowell Subdermal Imp lancesar Obstetrics and Minoo Contraceptive Removal Gynecology in [address] (Primary Dx) [place], [place] [address] [facility] [address] [place], [place] [phone] [address] (Work) [phone] Social History Tobacco Use Types Packs/Day Years [...] do you attend muslim or Never 2021 cheondoism services? Do you [...] at Date Recorded Female 12/02/2021 5:19 PM DEVELOPMENTAL BEHAVIORAL PHYSICIAN documented as of this encounter Last Filed Vital Signs Vital Sign Reading Time Taken Comments Blood Pressure 155/91 12/01/2021 2:56 PM DEVELOPMENTAL BEHAVIORAL PHYSICIAN Pulse 84 12/01/2021 2:56 PM DEVELOPMENTAL BEHAVIORAL PHYSICIAN Temperature 36.2 ??C (97.2 ??F) 12/01/2021 2:56 PM DEVELOPMENTAL BEHAVIORAL PHYSICIAN Respiratory Rate - - Oxygen Saturation - - Inhaled Oxygen Concentration - - Weight 69.5 kg (153 lb 4.8 oz) 12/01/2021 2:56 PM DEVELOPMENTAL BEHAVIORAL PHYSICIAN Height - - Body Mass Index 28.94 11/08/2021 12:40 PM DEVELOPMENTAL BEHAVIORAL PHYSICIAN documented in this encounter Progress Notes Rylie Mcdowell M.D. - 12/01/2021 3:15 PM CST SUBJECTIVE CHIEF COMPLAINT / REASON FOR VISIT Chief Complaint Patient presents with ??? nexplanon removal Early . LMP 10/29/21. Pt will see Dr. Swenson in [place] with [facility] for . HISTORY OF PRESENT CONDITION Lulu [...] levels - plan US once HCG above [phone] - Patient is following up at [facility] Diet and exercise, PNV and [...] are no discontinued medications. Rylie Mcdowell M.D. LOPMENTAL BEHAVIORAL PHYSICIAN documented in this encounter Procedure Notes Rylie [...] lidocaine POST-PROCEDURE DETAILS Complications: no apparent complications DIETITIAN CHIEF LOPMENTAL BEHAVIORAL PHYSICIAN documented in this encounter Plan of Treatment Not on filedocumented as of this encounter Procedures Procedure Name Priority Date/Time Associated Diagnosis Comme nts FL RMVL DRUG IMPL Routine 12/01/2021 4:11 PM Subdermal Implant able Results for this DEVELOPMENTAL BEHAVIORAL PHYSICIAN Contraceptive Removal proced ure are in the results section. documented in this encounter Results FL RMVL DRUG IMPL (12/01/2021 4:11 PM DEVELOPMENTAL BEHAVIORAL PHYSICIAN) Narrative MMODAL - 12/01/2021 4:11 PM DEVELOPMENTAL BEHAVIORAL PHYSICIAN Rylie Mcdowell M.D. ? 12/01/2021 ??4:12 PM [...] Primary documented in this encounter Care Teams Corner Cutter Machine Operator Relationship Specialty Start Date End Date Ben Arce M.D. PCP - General Family Medicine 01/13/[address] [place] [address] documented as of this encounter
--- OUTSIDE RECORDS SUMMARY | 2022-06-28 07:24 | XMS_ITS | Encounter Summary ---
:1990 Author Organization [facility] Address [address] [place] [address] Care Team Providers Name Role Phone Ben Arce M.D. Primary Care Provider Encounter Details Date Type Department Care Team Description 02/28/2022 Orders Only Department of Obstetrics and Gau Terrence zamarripa M.D. Gynecology in [address] [address] [place] [address] [phone] Social History Tobacco Use Types Packs/Day Years [...] do you attend rastafarian or Never 2021 zoroastrianism services? Do you [...] at Date Recorded Female 12/02/2021 5:19 PM TELEPHONE OPERATOR RECEPTIONIST documented as of this encounter Plan of Treatment Not on filedocumented as of this encounter Visit Diagnoses Not on filedocumented in this encounter Additional Health Concerns Assessment Noted Time PHQ-9 Depression Total Score: 4 12/20/2021 10:52 AM CS T documented as of this encounter Care Teams Manager Child Relationship Specialty Start Date End Date Ben Arce M.D. PCP - General Family Medicine 01/13/[address] [place] [phone] documented as of this encounter
--- OUTSIDE RECORDS SUMMARY | 2022-06-28 07:25 | XMS_ITS | Encounter Summary ---
:1990 Author Organization [facility] Address [address] [place] [address] Care Team Providers Name Role Phone Ben Arce M.D. Primary Care Provider Reason for Visit Reason Comments Other right hand injury---yesterda y Encounter Details Date Type Department Care Team Description 05/18/2021 Office Visit Department of Alexander Estrella Pain Hand Right (Primary Dx); Medicine in [facility] Contusion Hand Initial Right [place], [place] [address] [place] [phone] Social History Tobacco Use Types Packs/Day Years [...] do you attend anabaptism or Never 2021 scientologist services? Do you [...] at Date Recorded Female 12/02/2021 5:19 PM CHARCOAL KILN BURNER documented as of this encounter Last Filed [...] She had pain limiting her making a [place] with the thumb and index finger. No [...] Right documented in this encounter Care Teams Tent Worker Relationship Specialty Start Date End Date Ben Arce M.D. PCP - General Family Medicine 01/13/[address] [place] [address] documented as of this encounter
--- OUTSIDE RECORDS SUMMARY | 2022-06-28 07:25 | XMS_ITS | Encounter Summary ---
:1990 Author Organization [facility] Address [address] [place] [address] Care Team Providers Name Role Phone Elsewhere, Pcp Primary Care Provider Unavailable Reason for Visit Reason Comments Sinus Symptoms ongoing Encounter Details Date Type Department Care Team Description 07/02/2020 Office Visit Urgent Care, [facility], Sin usitis Acute [place], in [place], FATOU, C.N.P., (Samina pendleton Dx) [place] D.N.P. [address] [place] [address] [phone] Social History Tobacco Use Types Packs/Day Years [...] do you attend mu-ism or Never 2021 presybeterian services? Do you [...] at Date Recorded Female 12/02/2021 5:19 PM REWINDER OPERATOR documented as of this encounter Last [...] bacteria. Still, most people seen in the [facility] for upper respiratory infectionor sinusitis [...] and replace them as recommended by the binder lockstitch. Note: Having your humidity too high (more [...] help open sinuses and allow easier breathing. Mtam-unu-koxmdvc treatments* In addition to the previous suggestions, you may get relief for nasal and sinus obstruction or discomfort by taking non-prescription, faqa-zkn-glnxwua (OTC) medications. Many OTC medications combine a [...] with your health care provider. ? 2008 [employer] ([employer]). All rights reserved. [id number] documented in this encounter Progress Notes Esther [...] has been using Flonase nasal spray and ggiv-iwd-upiicpp decongestant and Tylenol or ibuprofen for symptoms. [...] a humidifier in the room. May use lpsr-vts-axrmjse Flonase to help with congestion. Drink warm [...] Primary documented in this encounter Care Teams Coil Winder Hand Relationship Specialty Start Date End Date Elsewhere, Pcp PCP - General Family Medicine 01/08/18 01/12/21 documented as of this encounter
--- OUTSIDE RECORDS SUMMARY | 2022-06-28 07:25 | XMS_ITS | Encounter Summary ---
:1990 Author Organization [facility] Address [address] [place] [address] Care Team Providers Name Role Phone Ben Arce M.D. Primary Care Provider Reason for Visit Reason Comments Med Refill Encounter Details Date Type Department Care Team Description 05/23/2021 Refill Department of Family Medicine Ben Maynard M.D. Med Refill in [facility] [address] [place] [phone] (Wo rk) Social History Tobacco Use Types [...] do you attend hinduism or Never 2021 taoist services? Do you [...] at Date Recorded Female 12/02/2021 5:19 PM NUTRITION INSTRUCTOR documented as of this encounter Miscellaneous Notes Telephone Encounter - Rylie Le RMaribellMKalpesh - 05/23/2021 1:08 PM CDT Medication Name: cetirizine Last Office Visit: 05/18/21 Future Office Visit: none Last Blood Pressure: (73211) 05/18/21 Last Set of Labs: 01/13/21 Patient is restricted to Dr. Ritter for all refills documented in this encounter Plan of Treatment Not on filedocumented as of this encounter Visit Diagnoses Diagnosis Rhinitis Allergic documented in this encounter Care Teams Patient Observer Relationship Specialty Start Date End Date Ben Arce M.D. PCP - General Family Medicine 01/13/[address] [place] [address] documented as of this encounter
--- OUTSIDE RECORDS SUMMARY | 2022-06-28 07:25 | XMS_ITS | Encounter Summary ---
:1990 Author Organization [facility] Address [address] [place] [address] Care Team Providers Name Role Phone Ben Arce M.D. Primary Care Provider Reason for Visit Reason Comments Med Refill Naproxen Encounter Details Date Type Department Care Team Description 02/10/2021 Refill Department of Ben Metzger M.D. Med Refill (Naproxen) Medicine in [place] [address] [place], [place] [address] [place] [address] [place] [address] [phone] Social History Tobacco Use Types Packs/Day Years [...] do you attend episcopal or Never 2021 nondenominational services? 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 - 02/10/2021 10:12 AM CDT Medication refill Naproxen Last filled 01/13/21 Last OV 01/13/21, 01/07/21 Future appointment None scheduled documented in this encounter Plan of Treatment Not on filedocumented as of this encounter Visit Diagnoses Diagnosis Pain Elbow Left documented in this encounter Care Teams Instructional Facilitator Relationship Specialty Start Date End Date Ben Arce M.D. PCP - General Family Medicine 01/13/[address] [facility] [place] [address] documented as of this encounter
--- OUTSIDE RECORDS SUMMARY | 2022-06-28 07:25 | XMS_ITS | Encounter Summary ---
:1990 Author Organization [facility] Address [address] [place] [address] Care Team Providers Name Role Phone Elsewhere, Pcp Primary Care Provider Unavailable Reason for Visit Reason Comments Earache Encounter Details Date Type Department Care Team Description 01/02/2021 Nurse Triage Department of [facility] Angella Herbert, Ear ache Medicine in [place], M.S.N., R.N. [place] [address] [place] [address] Social History Tobacco Use Types Packs/Day [...] do you attend taoism or Never 2021 hindu services? Do you [...] at Date Recorded Female 12/02/2021 5:19 PM REGISTERED CLIENT ASSOCIATE documented as of this encounter Miscellaneous [...] medication (e.g., ibuprofen or acetaminophen) Protocols used: [id number] Care Advice Patient/Caregiver understands and will follow care advice?: Yes, able to teach back SEE PCP WITHIN 4 HOURS (OR PCP TRIAGE): * IF OFFICE WILL BE OPEN: You need to be seen within the next 3 or 4 hours. Call your doctor (or FAMILY LIVING EDUCATOR/PA) now or as soon as the office [...] need to be seen. Your doctor (or FAMILY LIVING EDUCATOR/PA) will want to talk with you to [...] on filedocumented in this encounter Care Teams Contamination Consultant Relationship Specialty Start Date End Date Elsewhere, Pcp PCP - General Family Medicine 01/08/18 01/12/21 documented as of this encounter
--- OUTSIDE RECORDS SUMMARY | 2022-06-28 07:25 | XMS_ITS | Encounter Summary ---
:1990 Author Organization [facility] Address [address] [place] [address] Care Team Providers Name Role Phone Ben Arce M.D. Primary Care Provider Reason for Visit Reason Comments Communication New script Encounter Details Date Type Department Care Team Description 10/06/2021 Clinical Communication Department of Ben Arce Comm unication (New Family Medicine in M.DMaribell script) [place] [address] [facility] [address] [facility] [phone] [phone] Social History Tobacco Use Types Packs/Day Years [...] do you attend muslim or Never 2021 samaritan services? Do you [...] at Date Recorded Female 12/02/2021 5:19 PM EVP OF PRODUCTS & CO FOUNDER documented as of this encounter Miscellaneous Notes Telephone Encounter - Babita Ramachandran R.N. - 10/06/2021 3:58 PM EVP OF PRODUCTS & CO FOUNDER Portal message sent to patient that if she is on restricted plan she needs to contact her insurance for an exception. OF PRODUCTS & [employer] FOUNDER Telephone Encounter - Alana Perkins L.P.N. - 10/06/2021 3:02 PM EVP OF PRODUCTS & [employer] FOUNDER Spoke to pt and informed her that we would need to know which medication for eye drops was ordered so that Dr Arce could send it in. Pt states she has no idea what it is. Informed pt to find out which medication it is and call us back with that info. OF PRODUCTS [employer] FOUNDER Telephone Encounter - Migdalia Pompa - 10/06/2021 [...] Please call patient with plan. Thank you. OF PRODUCTS & [employer] FOUNDER documented in this encounter Plan of Treatment Not on filedocumented as of this encounter Visit Diagnoses Not on filedocumented in this encounter Care Teams Railroad Carman Relationship Specialty Start Date End Date Ben Arce M.D. PCP - General Family Medicine 01/13/[address] [facility] [place] [phone] documented as of this encounter
--- OUTSIDE RECORDS SUMMARY | 2022-06-28 07:25 | XMS_ITS | Encounter Summary ---
:1990 Author Organization [facility] Address [address] [place] [address] Care Team Providers Name Role Phone Ben Arce M.D. Primary Care Provider Reason for Visit Reason Comments Sinusitis Sinus pressure / sinus drain age/ sinus congestion x 6 weeks Encounter Details Date Type Department Care Team Description 11/08/2021 [facility] [place], in [place] [facility] [address] [facility] [address] [place] [phone] Social History Tobacco Use Types Packs/Day Years [...] do you attend confucianism or Never 2021 muslim services? Do you [...] at Date Recorded Female 12/02/2021 5:19 PM UNIT SUPERVISOR documented as of this encounter Last Filed Vital Signs Vital Sign Reading Time Taken Comments Blood Pressure 126/78 11/08/2021 12:40 PM UNIT SUPERVISOR Pulse 78 11/08/2021 12:40 PM UNIT SUPERVISOR Temperature 37 ??C (98.6 ??F) 11/08/2021 12:40 PM UNIT SUPERVISOR Respiratory Rate 16 11/08/2021 12:40 PM UNIT SUPERVISOR Oxygen Saturation 98% 11/08/2021 12:40 PM UNIT SUPERVISOR Inhaled Oxygen Concentration - - Weight 72.1 kg (158 lb 14.4 oz) 11/08/2021 12:40 PM UNIT SUPERVISOR Height 155 cm (5' 1.02) 11/08/2021 12:40 PM UNIT SUPERVISOR Body Mass Index 30 11/08/2021 12:40 PM UNIT SUPERVISOR documented in this encounter Patient Instructions Patient InstructionsArely Ferrell APRN, C.N.P. - 11/08/2021 12:30 PM UNIT SUPERVISOR Steam, frequent showers to break up mucus in back of throat. Follow up if not gradually improving over the next 7-10 days or sooner if symptoms would worsen. SUPERVISOR AttachmentsThe following attachments cannot be sent through Care Everywhere. Sinusitis (Rhinosinusitis) (Amharic)documented in this encounter Progress Notes Arely Ferrell [...] in total care of the patient today. SUPERVISOR documented in this encounter Plan of Treatment Not on filedocumented as of this encounter Visit Diagnoses Diagnosis Sinusitis - Primary documented in this encounter Care Teams Uke Driver Relationship Specialty Start Date End Date Ben Arce M.D. PCP - General Family Medicine 01/13/[address] [place] [address] documented as of this encounter
--- OUTSIDE RECORDS SUMMARY | 2022-06-28 07:25 | XMS_ITS | Encounter Summary ---
:[address] Author Organization [facility] Address [address] [place] [address] Care Team Providers Name Role Phone Elsewhere, Pcp Primary Care Provider Unavailable Encounter Details Date Type Department Care Team Description 01/07/2021 Hospital Encounter Department of Renae, Zack Hammer, Pain Elbow Left Radiology, [facility], in [place] [address] [place], [place] [address] [place] [address] [place], [place] [phone] (Work) [phone] Social History Tobacco Use Types Packs/Day Years [...] do you attend jainism or Never 2021 gnosticism services? Do you [...] at Date Recorded Female 12/02/2021 5:19 PM HAZMAT TANKER DRIVER documented as of this encounter Medications at [...] Left documented in this encounter Care Teams Chief Engineer'S Helper Relationship Specialty Start Date End Date Elsewhere, Pcp PCP - General Family Medicine 01/08/18 01/12/21 documented as of this encounter
--- OUTSIDE RECORDS SUMMARY | 2022-06-28 07:25 | XMS_ITS | Encounter Summary ---
:1990 Author Organization [facility] Address [address] [place] [address] Care Team Providers Name Role Phone Elsewhere, Pcp Primary Care Provider Unavailable Reason for Visit Reason Comments Facial Pain Pt presents for eval of sinu s pain, congestion, throat pain and claire ear pain. sick for 3 1/2 weeks . No known fever. Using OTC sudafed and afrin without relief. Encounter Details Date Type Department Care Team Description 09/09/2019 Emergency [facility] Sigrid Forbes (Primary Dx); Department D, M.D. Infection Upper Respiratory Viral [address] [place] [phone] (Wo rk) Social History Tobacco Use Types [...] do you attend uatsdin or Never 2021 jewish services? Do you [...] at Date Recorded Female 12/02/2021 5:19 PM CLEAT FEEDER documented as of this encounter Last Filed Vital Signs Vital Sign Reading Time Taken Comments Blood Pressure 135/101 09/09/2019 9:30 AM CLEAT FEEDER Pulse 75 09/09/2019 9:30 AM CLEAT FEEDER Temperature 36 ??C (96.8 ??F) 09/09/2019 9:30 AM CLEAT FEEDER Respiratory Rate 18 09/09/2019 9:30 AM CLEAT FEEDER Oxygen Saturation 96% 09/09/2019 9:30 AM CLEAT FEEDER Inhaled Oxygen Concentration - - Weight 72.6 kg (160 lb) 09/09/2019 9:39 AM CLEAT FEEDER Height 152.4 cm (5') 09/09/2019 9:39 AM CLEAT FEEDER Body Mass Index 31.25 09/09/2019 9:39 AM CLEAT FEEDER documented in this encounter Discharge Instructions Discharge InstructionsTomSigrid rmey M.D. - 09/09/2019 9:41 AM CLEAT FEEDER Return to the Emergency Department if you [...] clinic by calling the appointment center at [phone]. Thank you for choosing [facility] for your care. It was a pleasure taking care of you today in our Emergency Department. T FEEDER AttachmentsThe following attachments cannot be sent through Care Everywhere. Sinus Rinse Mjul-pu-Tuby (Kiswahili)Sinusitis Adult Lbiu-cb-Ovrv (Kiswahili) documented in this encounter Medications at Time [...] Forbes M.D. 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 09/09/19946 T FEEDER documented in this encounter Plan of Treatment Not on filedocumented as of this encounter Visit Diagnoses Diagnosis Sinusitis - Primary Infection Upper Respiratory Viral documented in this encounter Care Teams Can Tender Relationship Specialty Start Date End Date Elsewhere, Pcp PCP - General Family Medicine 01/08/18 01/12/21 documented as of this encounter
--- OUTSIDE RECORDS SUMMARY | 2022-06-28 07:25 | XMS_ITS | Encounter Summary ---
:1990 Author Organization [facility] Address [address] [place] [address] Care Team Providers Name Role Phone Elsewhere, Pcp Primary Care Provider Unavailable Reason for Referral Physical Therapy (Routine) - Denied Specialty Diagnoses / Procedures Referred By Contact Refer red To Contact Diagnoses Tendonitis Loulou Teresa APRN, [facility] Procedures PT Evaluate and treat C.N.P. [address] [place] [address] Referral ID Status Reason Start Date Expiration Date Visits Requ ested Visits Authorized [id number] Denied 06/08/2020 10/21/2020 1 0 Reason for Visit Reason Comments Post Ed Visit Follow-up Encounter Details Date Type Department Care Team Description 06/08/2020 Office Visit Department of [facility] Loulou Teresa Te ndonitis (Primary Medicine in [facility] BORDEREAU CLERK, C.N.P. Dx) [place], [place] [address] [place] [phone] Social History Tobacco Use Types Packs/Day Years [...] do you attend moravian or Never 2021 druze services? Do you [...] Date Recorded Female 12/02/2021 5:19 PM MACHINE SWEEPER BRUSH MAKER documented as of this encounter Last [...] Primary documented in this encounter Care Teams Computer Forensic Specialist Relationship Specialty Start Date End Date Elsewhere, Pcp PCP - General Family Medicine 01/08/18 01/12/21 documented as of this encounter
--- OUTSIDE RECORDS SUMMARY | 2022-06-28 07:25 | XMS_ITS | Encounter Summary ---
:1990 Author Organization [facility] Address [address] [place] [address] Care Team Providers Name Role Phone Ben Arce M.D. Primary Care Provider Reason for Visit Reason Comments Other swollen and sore throat and fluid in ears right more than the left. was just here on Sunday and saw Donya for her arm Encounter Details Date Type Department Care Team Description 01/13/2021 Office Visit Department of Ben Metzger M.D. Sore Throat (Primary Medicine in [place] [address] Dx) [place], [place] [address] [place] [place] [address] [place], [place] [phone] (Work) [phone] Social History Tobacco Use Types Packs/Day Years [...] do you attend yazdanism or Never 2021 evangelical services? Do you [...] Date Recorded Female 12/02/2021 5:19 PM SUPERVISOR AIRCRAFT CLEANING documented as of this encounter Last Filed [...] Body Mass Index 31.39 12/14/2020 5:24 PM SUPERVISOR AIRCRAFT CLEANING documented in this encounter Progress Ben Espinal [...] Organization Address City/State/ZIP Code Phon e Number [facility]- [address] [place] [phone] [place] [address] [address] documented in this encounter Visit Diagnoses Diagnosis Sore Throat - Primary documented in this encounter Care Teams Fish Processor Relationship Specialty Start Date End Date Ben Arce M.D. PCP - General Family Medicine 01/13/[address] [place] [address] documented as of this encounter
--- OUTSIDE RECORDS SUMMARY | 2022-06-28 07:25 | XMS_ITS | Encounter Summary ---
:1990 Author Organization [facility] Address [address] [place] [address] Care Team Providers Name Role Phone Elsewhere, Pcp Primary Care Provider Unavailable Reason for Visit Reason Comments Pain In Limb Follow up on left elbow Outpatient (Routine) - Closed Specialty Diagnoses / Procedures Referred By Contact Refer red To Contact Family Medicine Zack Macdonald M.D. [facility] [address] [place] [address] Referral ID Status Reason Start Date Expiration Date Visits Requ ested Visits Authorized [id number] Closed 12/16/2020 12/16/2021 1 1 Encounter Details Date Type Department Care Team Description 12/24/2020 Office Visit Department of Donya Fitzgerald Pain Elbow Left Medicine in [facility], FATOU, C.N.P., (Primary Dx) [place], [place] D.N.P. [address] [place] [phone] Social History Tobacco Use Types Packs/Day Years [...] do you attend scientologist or Never 2021 pentecostal services? Do you [...] at Date Recorded Female 12/02/2021 5:19 PM CREDIT RISK ANALYST documented as of this encounter Last Filed Vital Signs Vital Sign Reading Time Taken Comments Blood Pressure 128/80 12/24/2020 3:26 PM CREDIT RISK ANALYST Pulse 80 12/24/2020 3:26 PM CREDIT RISK ANALYST Temperature 36.4 ??C (97.5 ??F) 12/24/2020 3:26 PM CREDIT RISK ANALYST Respiratory Rate - - Oxygen Saturation 97% 12/24/2020 3:26 PM CREDIT RISK ANALYST Inhaled Oxygen Concentration - - Weight 72.1 kg (158 lb 15.2 oz) 12/24/2020 3:26 PM CREDIT RISK ANALYST Height - - Body Mass Index 31.21 12/14/2020 5:24 PM CREDIT RISK ANALYST documented in this encounter Progress Notes Donya [...] plan of care. Donya Lind, MIGUELANGEL, DNP IT RISK ANALYST documented in this encounter Plan of Treatment Not on filedocumented as of this encounter Visit Diagnoses Diagnosis Pain Elbow Left - Primary documented in this encounter Care Teams Transition Manager Relationship Specialty Start Date End Date Elsewhere, Pcp PCP - General Family Medicine 01/08/18 01/12/21 documented as of this encounter
--- OUTSIDE RECORDS SUMMARY | 2022-06-28 07:25 | XMS_ITS | Encounter Summary ---
:1990 Author Organization [facility] Address [address] [place] [address] Care Team Providers Name Role Phone Ben Arce M.D. Primary Care Provider Reason for Referral Specialty Diagnoses / Procedures Referred By Contact Refer red To Contact Ben Arce M.D. [facility] [address] [place] [address] Referral ID Status Reason Start Date Expiration Date Visits Requ ested Visits Authorized AID Encounter Details Date Type Department Care Team Description 11/20/2021 Orders Only [facility] PCP [facility] MNT Kimberly Arce M.D. [address] [place], [place] [phone] (Wo rk) Social History [...] you attend roman catholic or Never 2021 holiness services? Do you [...] Date Recorded Female 12/02/2021 5:19 PM UNIT AID documented as of this encounter Plan of Treatment Scheduled Referrals Name Type Priority Associated Order Schedule Diagnoses Covid immunization Outpatient Referral Routine Ex pected: office visit Booster 022 (Approximate), Expires: 11/20/2022 documented as of this encounter Visit Diagnoses Not on filedocumented in this encounter Care Teams Billet Sawyer Relationship Specialty Start Date End Date Ben Arce M.D. PCP - General Family Medicine 01/13/[address] [place] [phone] documented as of this encounter
--- OUTSIDE RECORDS SUMMARY | 2022-06-28 07:25 | XMS_ITS | Encounter Summary ---
:1990 Author Organization [facility] Address [address] [place] [address] Care Team Providers Name Role Phone Elsewhere, Pcp Primary Care Provider Unavailable Reason for Referral Outpatient (Routine) - Closed Specialty Diagnoses / Procedures Referred By Contact Refer red To Contact Diagnoses [facility] Ben Arce M.D. [address] [place] [address] Referral ID Status Reason Start Date Expiration Visits Visits Date Requested Authorized [id number] Closed Continuity of 10/06/2020 10/06/2021 1 1 Care ADMISSION Reason for Visit Reason Comments Communication referral Encounter Details Date Type Department Care Team Description 10/06/2020 Clinical Communication Department of Ben Arce Comm unication Family Medicine in [place] (referral ) [place] [address] [facility] [address] [facility] [phone] Social History Tobacco Use Types Packs/Day Years [...] do you attend holiness or Never 2021 scientology services? Do you [...] at Date Recorded Female 12/02/2021 5:19 PM RN ADMISSION documented as of this encounter Miscellaneous Notes Telephone Encounter - Wilma Montelongo R.N. - 10/06/2020 4:17 PM CST Pt advised that referral was faxed to [facility]: [phone] ADMISSION Telephone Encounter - Ben Arce M.D. - 10/06/2020 2:55 PM CST External referral order placed. Please fax for patient. Thanks. It should be printed in the office printer. Thanks. ADMISSION Telephone Encounter - Ilene Gautam - 10/06/2020 [...] to send referral for her to see [facility] Dentist in [place]. She is on a restricted program through insurance and they will only cover this if referred by Dr. Arce. She is having a tooth pulled on Sunday. Please fax to fax #[phone]. Please call her to let her know if this is done. Thank you. I will send this information to the appropriate staff member who will look into your concern. Is there anything else I can help you with today? Thank you for calling [facility]. ADMISSION documented in this encounter Plan of Treatment Not on filedocumented as of this encounter Visit Diagnoses Diagnosis [facility] - Primary documented in this encounter Care Teams Motion Picture Set Up Worker Relationship Specialty Start Date End Date Elsewhere, Pcp PCP - General Family Medicine 01/08/18 01/12/21 documented as of this encounter
--- OUTSIDE RECORDS SUMMARY | 2022-06-28 07:25 | XMS_ITS | Encounter Summary ---
:1990 Author Organization [facility] Address [address] [place] [address] Care Team Providers Name Role Phone Ben [...] Type Department Care Team Description 03/01/2021 [facility] Valerie Malone Contu sion Head Initial (Primary Dx); Department [place] Strain Neck Initial [address] [place] [phone] Social History Tobacco Use Types Packs/Day Years [...] do you attend adventism or Never 2021 yazdanism services? Do you [...] at Date Recorded Female 12/02/2021 5:19 PM UROGYNAECOLOGIST documented as of this encounter Last Filed [...] through Care Everywhere. Facial or Scalp Contusion (Maori)documented in this encounter Medications at Time [...] ondansetron ODT disintegrating tablet 4 mg (ZOFRAN-ODT) ([facility]) 1101 (Given - Provider: Nita Rao R.N.) 4 mg, oral, Once, On Sun03/01/21 at 1058 , For 1 dose, When splitting ODT at bedside, handle with gloves and a pill splitter to prevent moisture contact. documented in this encounter Care Teams Company Doctor Relationship Specialty Start Date End Date Ben Arce M.D. PCP - General Family Medicine 01/13/[address] [place] [phone] documented as of this encounter
--- OUTSIDE RECORDS SUMMARY | 2022-06-28 07:25 | XMS_ITS | Encounter Summary ---
:1990 Author Organization [facility] Address [address] [place] [address] Care Team Providers Name Role Phone Elsewhere, Pcp Primary Care Provider Unavailable Reason for Referral Outpatient (Routine) - Closed Specialty Diagnoses / Procedures Referred By Contact Refer red To Contact Family Medicine Zack Macdonald M.D. [facility] Region [address] [place] [address] Referral ID Status Reason Start Date Expiration Date Visits Requ ested Visits Authorized [id number] Closed 12/16/2020 12/16/2021 1 1 HING OPERATOR Reason for Visit Reason Comments Follow-up arm injury Encounter Details Date Type Department Care Team Description 12/16/2020 Office Visit Department of Family Zack Macdonald, Pain Elbow Left Medicine in [place]aswinder Hennessy (Primary Dx) [place], [place] [address] [place] [address] [phone] Social History Tobacco Use Types Packs/Day Years [...] do you attend catholic or Never 2021 quaker services? Do you belong to any clubs or No 11/20/2021 organizations such as catholic groups, unions, fraMeusonic or athletic groups, or school groups? How [...] at Date Recorded Female 12/02/2021 5:19 PM BRUSHING OPERATOR documented as of this encounter Last Filed Vital Signs Vital Sign Reading Time Taken Comments Blood Pressure 126/92 12/16/2020 3:16 PM BRUSHING OPERATOR Pulse 78 12/16/2020 3:11 PM BRUSHING OPERATOR Temperature 36.2 ??C (97.2 ??F) 12/16/2020 3:11 PM BRUSHING OPERATOR Respiratory Rate - - Oxygen Saturation 97% 12/16/2020 3:11 PM BRUSHING OPERATOR Inhaled Oxygen Concentration - - Weight 72.1 kg (158 lb 14.4 oz) 12/16/2020 3:11 PM BRUSHING OPERATOR Height - - Body Mass Index 31.2 12/14/2020 5:24 PM BRUSHING OPERATOR documented in this encounter Patient Instructions Patient InstructionsZack Macdonald M.D. - 12/16/2020 3:30 PM CST 1. Make an appointment in 3 weeks for follow-up. 2. Sling as needed for comfort. 3. Continue to work on range of motion with the shoulder and elbow. 4. Tylenol or ibuprofen as needed for discomfort. HING OPERATOR documented in this encounter Progress Notes [...] Tylenol or ibuprofen as needed for discomfort. HING OPERATOR documented in this encounter Plan of Treatment Scheduled Referrals Name Type Priority Associated Diagnoses Order S [facility] Outpatient Referral Routine Expec [...] Left documented in this encounter Care Teams Polisher Eyeglass Frames Relationship Specialty Start Date End Date Elsewhere, Pcp PCP - General Family Medicine 01/08/18 01/12/21 documented as of this encounter
--- OUTSIDE RECORDS SUMMARY | 2022-06-28 07:25 | XMS_ITS | Encounter Summary ---
:1990 Author Organization [facility] Address [address] [place] [address] Care Team Providers Name Role Phone Elsewhere, Pcp Primary Care Provider Unavailable Reason for Visit Reason Comments Vomiting Pt presents w/nausea, vomiti ng and diarrhea onset 2300 yesterday. Encounter Details Date Type Department Care Team Description 11/11/2019 Emergency [place] [facility] Sigrid Forbes ausea And Vomiting (Primary Dx); Department D, M.D. Diarrhea [address] [place] [phone] (Wo rk) Social History Tobacco Use Types [...] Date Recorded Female 12/02/2021 5:19 PM INDUSTRIAL AUTOMATION ENGINEER documented as of this encounter Last Filed Vital Signs Vital Sign Reading Time Taken Comments Blood Pressure 112/79 11/11/2019 7:01 AM INDUSTRIAL AUTOMATION ENGINEER Pulse 81 11/11/2019 7:01 AM INDUSTRIAL AUTOMATION ENGINEER Temperature 36.4 ??C (97.5 ??F) 11/11/2019 7:01 AM INDUSTRIAL AUTOMATION ENGINEER Respiratory Rate 16 11/11/2019 7:01 AM INDUSTRIAL AUTOMATION ENGINEER Oxygen Saturation 93% 11/11/2019 7:01 AM INDUSTRIAL AUTOMATION ENGINEER Inhaled Oxygen Concentration - - Weight 71.8 kg (158 lb 4.6 oz) 11/11/2019 5:50 AM INDUSTRIAL AUTOMATION ENGINEER Height 152.4 cm (5') 11/11/2019 5:50 AM INDUSTRIAL AUTOMATION ENGINEER Body Mass Index 30.91 11/11/2019 5:50 AM INDUSTRIAL AUTOMATION ENGINEER documented in this encounter Discharge Instructions Discharge InstructionsToSigrid geronimo M.D. - 11/11/2019 6:51 AM INDUSTRIAL AUTOMATION ENGINEER Return to the Emergency Department/ if he [...] clinic by calling the appointment center at [phone]. Thank you for choosing [facility] for your care. It was a pleasure taking care of you today in our Emergency Department. STRIAL AUTOMATION ENGINEER AttachmentsThe following attachments cannot be sent through Care Everywhere. Nausea and Vomiting Adult (Slovenian)Diarrhea Adult Ttjo-kz-Cpat (Slovenian) documented in this encounter Medications at Time [...] Forbes M.D. - 11/11/2019 6:16 AM CST [facility] EMERGENCY DEPARTMENT ENCOUNTER Patient Name: Lulu Mata PCP: Primary Care Physician SUBJECTIVE CHIEF COMPLAINT/REASON FOR VISIT Vomiting (Pt presents w/nausea, vomiting and diarrhea onset 2300 yesterday.) HISTORY OF PRESENT ILLNESS Lulu Mata is a 29 y.o. female with a history of asthma presenting with 7 hours of vomiting and diarrhea. She ate dinner at the [employer] last night. Several different types of food [...] felt well before eating dinner at the [employer]. She denies any recentabdominal pain, no prior [...] Forbes M.D. 11/11/19650 Sigrid Forbes M.D. 11/11/19654 STRIAL AUTOMATION ENGINEER documented in this encounter Plan of Treatment Not on filedocumented as of this encounter Visit Diagnoses Diagnosis Nausea And Vomiting - Primary Diarrhea documented in this encounter Administered Medications Inactive Administered Medications - up to 3 most recent administrations Medication Order MAR Action Action Date Dose Rate Site ondansetron ODT disintegrating Given 11/11/2019 6:10 AM INDUSTRIAL AUTOMATION ENGINEER 8 mg tablet 8 mg (ZOFRAN-ODT) 8 mg, oral, Once, On Sun11/11/19 at 0605, For 1 dose, When splitting ODT at bedside, handle with gloves and a pill splitter to prevent moisture contact. documented in this encounter Active and Recently Administered Medications Times are shown in INDUSTRIAL AUTOMATION ENGINEER. Scheduled Medication Order 11/09/2019 11/10/2019 11/11/2019 ondansetron ODT disintegrating tablet 8 mg (ZOFRAN-ODT) ([facility]) 0610 (Given - Provider: Tara Brock R.N.) 8 mg, oral, Once, On Sun11/11/19 at 0605 , For 1 dose, When splitting ODT at bedside, handle with gloves and a pill splitter to prevent moisture contact. documented in this encounter Care Teams Coding Technician Relationship Specialty Start Date End Date Elsewhere, Pcp PCP - General Family Medicine 01/08/18 01/12/21 documented as of this encounter
--- OUTSIDE RECORDS SUMMARY | 2022-06-28 07:25 | XMS_ITS | Encounter Summary ---
:1990 Author Organization [facility] Address [address] [place] [address] Care Team Providers Name Role Phone Elsewhere, Pcp Primary Care Provider Unavailable Reason for Visit Reason Comments Wrist Pain 30 y/o f presents with R wri st and hand pain since . Pt says is sharp and radiates up her ar m, no injury, has been taking advil with some relief. Encounter Details Date Type Department Care Team Description 05/30/2020 Emergency [place] [facility] Sigrid Forbes endofrantz Forearm Department D, M.D. (Primary Dx) [address] [facility] [place] [address] [phone] (Wo rk) Social History Tobacco Use Types [...] do you attend sikhism or Never 2021 zoroastrian services? Do you [...] Date Recorded Female 12/02/2021 5:19 PM CHIEF TRANSFER AND PUMPHOUSE OPERATOR documented as of this encounter Last [...] Body Mass Index 30.81 12/26/2019 9:26 AM CHIEF TRANSFER AND PUMPHOUSE OPERATOR documented in this encounter Discharge Instructions [...] clinic by calling the appointment center at [phone]. Thank you for choosing [facility] for your care. It was [...] Forbes M.D. - 05/30/2020 12:11 PM CDT [facility] [facility] EMERGENCY DEPARTMENT ENCOUNTER Patient Name: [...] documented in this encounter Care Teams Wood Milling Machine Hand Relationship Specialty Start Date End Date Elsewhere, Pcp PCP - General Family Medicine 01/08/18 01/12/21 documented as of this encounter
--- OUTSIDE RECORDS SUMMARY | 2022-06-28 07:25 | XMS_ITS | Encounter Summary ---
:1990 Author Organization [facility] Address [address] [place] [address] Care Team Providers Name Role Phone Elsewhere, Pcp Primary Care Provider Unavailable Reason for Visit Reason Comments Amox Encounter Details Date Type Department Care Team Description 10/05/2020 Clinical Communication Department of Family Aguila Arias M.D. [facility] Medicine in [place] [address] [place], [place] [address] [facility] [address] [place], [place] [phone] (Work) [phone] Social History Tobacco Use Types Packs/Day Years [...] do you attend caodaism or Never 2021 church services? Do you [...] at Date Recorded Female 12/02/2021 5:19 PM CUT OFF SAW TENDER METAL documented as of this encounter Miscellaneous Notes Addendum Note - Aguila Arce M.D. - 10/05/2020 4:11 PM CUT OFF SAW TENDER METAL Addended by: AGUILA ARCE on: 10/05/2020 04:11 PM Modules accepted: Orders OFF SAW TENDER METAL Addendum Note - Dali Bird R.M.A. - 10/05/2020 4:09 PM CUT OFF SAW TENDER METAL Addended by: DALI BIRD on: 10/05/2020 04:09 PM Modules accepted: Orders OFF SAW TENDER METAL Telephone Encounter - Dali Bird R.M.A. - 10/05/2020 4:03 PM CUT OFF SAW TENDER METAL Pt's sister is calling on behalf of sister stating that she is restricted to Dr Arce and needs her amox filled. She saw the dentist today, Dr Kelsea Gamino and he prescribed Amox 500 mg. Take 2 tabs STAT and one tab TID till gone #31. OFF SAW TENDER METAL documented in this encounter Plan of Treatment Not on filedocumented as of this encounter Visit Diagnoses Not on filedocumented in this encounter Care Teams Police Clerk Relationship Specialty Start Date End Date Elsewhere, Pcp PCP - General Family Medicine 01/08/18 01/12/21 documented as of this encounter
--- OUTSIDE RECORDS SUMMARY | 2022-06-28 07:25 | XMS_ITS | Encounter Summary ---
:1990 Author Organization [facility] Address [address] [place] [address] Care Team Providers Name Role Phone Elsewhere, Pcp Primary Care Provider Unavailable Reason for Referral Outpatient (Routine) - Closed Specialty Diagnoses / Procedures Referred By Contact Refer red To Contact Family Medicine Donya Lind APRN, [facility] C.N.P., D.N.P. Referral ID Status Reason Start Date Expiration Date Visits Requ ested Visits Authorized [id number] Closed 01/07/2021 01/07/2022 1 1 Reason for Visit Reason Comments Follow-up Follow up Elbow Encounter Details Date Type Department Care Team Description 01/07/2021 Office Visit Department of Donya Fitzgerald Pain Elbow Left (Primary Dx); Medicine in [facility] FATOU Lu C.N.PMaribell, Rhinitis Allergic [place], [place] D.N.P. [address] [place] [address] Social History Tobacco Use Types Packs/Day Years [...] do you attend mandaeism or Never 2021 protestant services? Do you [...] at Date Recorded Female 12/02/2021 5:19 PM PUBLIC INFORMATION DIRECTOR documented as of this encounter Last [...] Body Mass Index 31.21 12/14/2020 5:24 PM PUBLIC INFORMATION DIRECTOR documented in this encounter Progress Notes Donya [...] meds for pain management. She works at [employer] and has continued to wear sling at [...] plan of care as outlined. Donya Lind, COMPRESS MACHINE OPERATOR, DNP documented in this encounter Plan of Treatment Scheduled Referrals Name Type Priority Associated Diagnoses Order S [facility] Family Medicine Outpatient Referral Routine Expec taurus: office visit 02/07/2021 (clinic) (Approximate), Expires: 01/08/2024 documented as of this encounter Visit Diagnoses Diagnosis Pain Elbow Left - Primary Rhinitis Allergic documented in this encounter Care Teams Fiber Glass Worker Relationship Specialty Start Date End Date Elsewhere, Pcp PCP - General Family Medicine 01/08/18 01/12/21 documented as of this encounter
--- OUTSIDE RECORDS SUMMARY | 2022-06-28 07:25 | XMS_ITS | Encounter Summary ---
:1990 Author Organization [facility] Address [address] [place] [address] Care Team Providers Name Role Phone Elsewhere, Pcp Primary Care Provider Unavailable Reason for Visit Reason Comments Hand Injury pt presents with injury to l eft hand, pt states she was holding onto a door knob yesterday at work when someone pushed the door open and smashed her hand Swelling noted. Encounter Details Date Type Department Care Team Description 12/26/2019 Emergency [place] Emergency Sigrid Forbes ontusion Hand Initial Department Minoo Cervantes Left (Primary Dx) [address] [place] [phone] (Wo rk) Social History Tobacco Use Types [...] do you attend anabaptism or Never 2021 mu-ism services? Do you [...] at Date Recorded Female 12/02/2021 5:19 PM PHYSICAL SECURITY SPECIALIST documented as of this encounter Last Filed Vital Signs Vital Sign Reading Time Taken Comments Blood Pressure 128/90 12/26/2019 10:18 AM PHYSICAL SECURITY SPECIALIST Pulse 78 12/26/2019 10:18 AM PHYSICAL SECURITY SPECIALIST Temperature 37 ??C (98.6 ??F) 12/26/2019 10:18 AM PHYSICAL SECURITY SPECIALIST Respiratory Rate 16 12/26/2019 10:18 AM PHYSICAL SECURITY SPECIALIST Oxygen Saturation 100% 12/26/2019 10:18 AM PHYSICAL SECURITY SPECIALIST Inhaled Oxygen Concentration - - Weight 70.8 kg (156 lb 1.4 oz) 12/26/2019 9:26 AM PHYSICAL SECURITY SPECIALIST Height 155 cm (5' 1.02) 12/26/2019 9:26 AM PHYSICAL SECURITY SPECIALIST Body Mass Index 29.47 12/26/2019 9:26 AM PHYSICAL SECURITY SPECIALIST documented in this encounter Discharge Instructions Discharge InstructionsToSigrid geronimo M.D. - 12/26/2019 9:47 AM PHYSICAL SECURITY SPECIALIST Return to the Emergency Department with any [...] clinic by calling the appointment center at [phone]. Thank you for choosing [facility] for your care. It was a pleasure taking care of you today in our Emergency Department. ICAL SECURITY SPECIALIST documented in this encounter Medications at Time [...] Forbes M.D. - 12/26/2019 9:37 AM CST [facility] EMERGENCY DE[facility]MENT EMERGENCY DEPARTMENT ENCOUNTER Patient Name: [...] 9:49 AM Sigrid Forbes M.D. 12/26/19 1052 ICAL SECURITY SPECIALIST documented in this encounter Plan of Treatment Not on filedocumented as of this encounter Procedures Procedure Name Priority Date/Time Associated Comments Diagnosis DX HAND LEFT 3 RAD - Semiurgent 12/26/2019 9:39 Result s for this VIEWS (Fast; most ED AM PHYSICAL SECURITY SPECIALIST procedure are in patients; some the results inpatients) section. documented in this encounter Results DX Hand Left 3 Views (12/26/2019 9:39 AM PHYSICAL SECURITY SPECIALIST) Anatomical Region Laterality Modality Upper Extremity, Hand, Musculoskeletal RST LOS, Left Digital Radiography Musculoskeletal ARZ LOS, Muskuloskeletal FLA LOS Specimen (Source) Anatomical Collection Method Collection Time Re ceived Time Location / / Volume Laterality 12/26/2019 9:40 AM PHYSICAL SECURITY SPECIALIST Impressions 12/26/2019 9:41 AM PHYSICAL SECURITY SPECIALIST No acute radiographic abnormalities are demonstrated. Narrative 12/26/2019 9:41 AM PHYSICAL SECURITY SPECIALIST EXAM: DX HAND LEFT 3 VIEWS COMPARISON: [...] documented in this encounter Care Teams Supervisor Boatbuilders Wood Relationship Specialty Start Date End Date Elsewhere, Pcp PCP - General Family Medicine 01/08/18 01/12/21 documented as of this encounter
--- OUTSIDE RECORDS SUMMARY | 2022-06-28 07:25 | XMS_ITS | Encounter Summary ---
:1990 Author Organization [facility] Address [address] [place] [address] Care Team Providers Name Role Phone Elsewhere, Pcp Primary Care Provider Unavailable Reason for Visit Physical Therapy (Routine) - Denied Specialty Diagnoses / Procedures Referred By Contact Refer red To Contact Diagnoses Tendonitis Loulou Teresa APRN, [facility] [place] [facility] Procedures PT Evaluate and treat C.N.P. [address] [place] [address] Referral ID Status Reason Start Date Expiration Date Visits Requ ested Visits Authorized [id number] Denied 06/08/2020 10/21/2020 1 0 Encounter Details Date Type Department Care Team Description 06/30/2020 Comprehensive Visit Department of Physical Loulou Metz APRN, C.N.P. [address] [place] [phone] Tendonitis Elbow (Primary Dx); Medicine and Yunior Robins P.TMaribell [address] [place] [phone] Tendonitis Rehabilitation in [place], [place] [address] [place] [phone] Social History Tobacco Use Types Packs/Day Years [...] do you attend temple or Never 2021 shinto services? Do you belong to any clubs or No 11/20/2021 organizations such as temple groups, unions, fraEsoko Networks or athletic groups, or school groups? How [...] at Date Recorded Female 12/02/2021 5:19 PM JUNIOR HIGH SCHOOL PRINCIPAL documented as of this encounter Consult Notes [...] upper extremity pain/tendinitis Onset Date: 06/08/20 Payor: [facility] [place] CARE / Plan: [facility] CARE RESTRICTED PLAN / Product Type: Medicaid HMO / [facility] Visit Count: 1 PERTINENT MEDICAL / SURGICAL [...] Patient works 40 hours at the local [employer]. Patient has a 7-1/2-year-old son. 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 Patient works the [...] Department of Physical Medicine and Rehabilitation in [address] [address] Dept: [phone] [place] HIGH SCHOOL PRINCIPAL documented in this encounter Plan of Treatment Not on filedocumented as of this encounter Visit Diagnoses Diagnosis Tendonitis Elbow - Primary Tendonitis documented in this encounter Care Teams Paving And Surfacing Labourer Relationship Specialty Start Date End Date Elsewhere, Pcp PCP - General Family Medicine 01/08/18 01/12/21 documented as of this encounter
--- OUTSIDE RECORDS SUMMARY | 2022-06-28 07:25 | XMS_ITS | Encounter Summary ---
:1990 Author Organization [facility] Address [address] [place] [address] Care Team Providers Name Role Phone Elsewhere, Pcp Primary Care Provider Unavailable Encounter Details Date Type Department Care Team Description 01/07/2021 Clinical Communication Department of [facility] Donya Lind [facility] in [facility], C.N.P.[place], [place] D.N.P. [address] [place] [phone] Social History Tobacco Use Types Packs/Day Years [...] do you attend congregation or Never 2021 adventism services? Do you [...] at Date Recorded Female 12/02/2021 5:19 PM SUBSTATION TECHNICIAN documented as of this encounter Miscellaneous [...] patient Please call [facility] before patient arrives... [phone] documented in this encounter Plan of Treatment Not on filedocumented as of this encounter Visit Diagnoses Not on filedocumented in this encounter Care Teams Abrasive Worker Relationship Specialty Start Date End Date Elsewhere, Pcp PCP - General Family Medicine 01/08/18 01/12/21 documented as of this encounter
--- OUTSIDE RECORDS SUMMARY | 2022-06-28 07:25 | XMS_ITS | Encounter Summary ---
:1990 Author Organization [facility] Address [address] [place] [address] Care Team Providers Name Role Phone Ben Arce M.D. Primary Care Provider Encounter Details Date Type Department Care Team Description 05/18/2021 Hospital Encounter Department of Alexander Rendon, Pain Hand Right Radiology, [facility], in [place] [address] [place], [place] [address] [place] [address] [place], [place] [phone] (Work) [phone] Social History Tobacco Use Types Packs/Day Years [...] do you attend caodaism or Never 2021 pentecostalism services? Do you [...] at Date Recorded Female 12/02/2021 5:19 PM CDL PROGRAM COORDINATOR documented as of this encounter Medications at [...] Right documented in this encounter Care Teams Stage Settings Painter Relationship Specialty Start Date End Date Ben Arce M.D. PCP - General Family Medicine 01/13/[address] [place] [address] documented as of this encounter
--- OUTSIDE RECORDS SUMMARY | 2022-06-28 07:25 | XMS_ITS | Encounter Summary ---
:1990 Author Organization [facility] Address [address] [place] [address] Care Team Providers Name Role Phone Ben Arce M.D. Primary Care Provider Reason for Visit Reason Comments Nausea OTHER Breast pain Vomiting Positive at home test X 4 Encounter Details Date Type Department Care Team Description 11/24/2021 Comprehensive Visit Department of Grant Jones ncsharyn Test (Primary Dx); Obstetrics and J, RN MEDICATION, Counseling Bi rth Control; Gynecology in [facility] C.N.P., M.S.N. Pap Smear Examination [place], [place] [address] [place] [phone] Social History Tobacco Use Types Packs/Day Years [...] do you attend hinduism or Never 2021 anabaptist services? Do you [...] at Date Recorded Female 12/02/2021 5:19 PM LEAN MANUFACTURING ENGINEER documented as of this encounter Last Filed Vital Signs Vital Sign Reading Time Taken Comments Blood Pressure 166/67 11/24/2021 1:50 PM LEAN MANUFACTURING ENGINEER Pulse 118 11/24/2021 1:49 PM LEAN MANUFACTURING ENGINEER Temperature 37.2 ??C (99 ??F) 11/24/2021 1:49 PM LEAN MANUFACTURING ENGINEER Respiratory Rate - - Oxygen Saturation - - Inhaled Oxygen Concentration - - Weight 71.6 kg (157 lb 12.8 oz) 11/24/2021 1:49 PM LEAN MANUFACTURING ENGINEER Height - - Body Mass Index 29.79 11/08/2021 12:40 PM LEAN MANUFACTURING ENGINEER documented in this encounter Progress Notes Grant [...] STD testing. Grant Jones APRN, Reji.NDany, M.S.N. MANUFACTURING ENGINEER documented in this encounter Miscellaneous Notes Addendum Note - Grant Jones APRN, Reji.N.P., M.S.N. - 11/24/2021 1:15 PM LEAN MANUFACTURING ENGINEER Addended by: GRANT JONES on: 11/29/2021 08:00 AM Modules accepted: Orders MANUFACTURING ENGINEER documented in this encounter Plan of Treatment Not on filedocumented as of this encounter Procedures Procedure Name Priority Date/Time Associated Diagnosis Comme nts THINPREP W/HPV Routine 11/24/2021 4:49 PM Pap Smear Results for this CO-TEST SCREEN LEAN MANUFACTURING ENGINEER Examination procedure are in the results section. HUMAN CHORIONIC Routine 11/24/2021 2:00 PM Test Resu lts for this GONADOTROPIN (HCG), LEAN MANUFACTURING ENGINEER procedur e are in ROBERTA, the results section. HPV WITH GENOTYPING, Routine 11/24/2021 1:53 PM R esults for this PCR, THINPREP LEAN MANUFACTURING ENGINEER procedure are in the results section. TEST, POCT, Routine 11/24/2021 1:14 PM Samira t Results for this U (LAB) LEAN MANUFACTURING ENGINEER procedure are i n the results section. documented in this encounter Results ThinPrep w/HPV Co-Test Screen (11/24/2021 4:49 PM LEAN MANUFACTURING ENGINEER) Component Value Ref Test Analysis Performed Pathologis t Range Method Time At Signature 11/28/2021 HK 3:47 PM LEAN MANUFACTURING ENGINEER Report DEBRA Boles(ASCP) 11/28/2021 HK electronically 3:47 PM signed by LEAN MANUFACTURING ENGINEER I verify that I have examined all relevant slides/materials for the specimen(s) and rendered or confirmed the diagnosis. Gross Description Received specimen 11/28/2021 HK Y in a ThinPrep 3:47 PM vial. LEAN MANUFACTURING ENGINEER Pap Test Source Cervical/Endocervi 11/28/2021 HKCY lizbeth 3:47 PM LEAN MANUFACTURING ENGINEER Interpretation Cervical/Endocervical ??(ThinPrep): 11/28/2021 HKCY 3:47 PM Satisfactory for Evaluation LEAN MANUFACTURING ENGINEER Negative for Intraepithelial Lesion or Malignancy Shift [...] Laterality Varies 11/24/2021 4:49 PM 6:36 (Cervix/Endocerv LEAN MANUFACTURING ENGINEER AM LEAN MANUFACTURING ENGINEER ix) Narrative This result has an attachment that is no t available. Reji Polanco APRN.N.P., M.S.N. LAB PAP PATHDX ORD ERABLES Performing Organization Address City/State/ZIP Code Phon e Number [facility]- [address] [place] [address] [facility] [place] [address] [facility] [address] [facility] (ABNORMAL) hCG (Human Chorionic Gonadotropin), Quantitative, (11/24/2021 2:00 PM LEAN MANUFACTURING ENGINEER) athologist Signature HCG, 6.9 (H) <5 IU/L 11/24/2021 NPRG Quantitative, 2:22 PM LEAN MANUFACTURING ENGINEER , P Comment: Biotin has been identified by the meir toro as a potential interfering substance. ??Higher concentr ations of biotin may be found in multivitamins, hair/nail supple ments, and workout supplements. ??If the result does not [facility] clinical observations, repeat testing after patient refrains fr om the use of supplements for at least 12 hours. Specimen Anatomical Collection Method Collection Time Receive d Time (Source) Location / / Volume Laterality Blood (Blood, 11/24/2021 2:00 PM 11/24/19 2:01 Venous) LEAN MANUFACTURING ENGINEER PM LEAN MANUFACTURING ENGINEER Grant Jones APRN, C.N.P., M.S.N. LAB BLOOD ADD-ON Performing Organization Address City/State/ZIP Code Phon e Number [facility]- [address] [place], [place] [address] [place] [address] [place] [address] [place] [address] [place] HPV with Genotyping, PCR, ThinPrep (11/24/2021 1:53 PM LEAN MANUFACTURING ENGINEER) athologist Signature HPV with Negative Negative 11/25/2021 [facility] Genotyping, 3:27 PM LEAN MANUFACTURING ENGINEER ThinPrep, PCR Comment: Negative for high risk HPV by nucleic ac id amplification. ??The following high risk HPV types were not detected: 16, 18, 31, 33, 35, 39, 45, 51, 52, 56, 58, 59, 66, and 68 Specimen Anatomical Collection Method Collection Time Receive d Time (Source) Location / / Volume Laterality Varies 11/24/2021 1:53 PM 6:36 LEAN MANUFACTURING ENGINEER AM LEAN MANUFACTURING ENGINEER Reji Polanco APRN.N.Anna., M.S.N. LAB MICROBIOLOGY - GENERAL ORDERABLES Performing Organization Address City/[facility]/ZIP Code Phon e Number [facility]- [address] [place] [address] [place] [address] System in [place] [address] [facility] Test, POCT, Urine (lab) (11/24/2021 1:14 PM LEAN MANUFACTURING ENGINEER) P athologist Signature Negative 11/24/2021 NPRG Test, POCT, U 1:21 PM LEAN MANUFACTURING ENGINEER Specimen Anatomical Collection Method Collection Time Receive d Time (Source) Location / / Volume Laterality Urine (Urine, 11/24/2021 1:14 PM 11/24/19 1:14 Clean Catch) LEAN MANUFACTURING ENGINEER PM LEAN MANUFACTURING ENGINEER Grant Jones APRN, C.N.P., M.S.N. LAB POCT ORDERABLE S - DEVICE Performing Organization Address City/[facility]/ZIP Code Phon e Number [facility]- [address] [place] [address] [place] [address] [facility] [place] [address] documented in this encounter Visit Diagnoses Diagnosis Test - Primary Counseling Control Pap Smear Examination documented in this encounter Care Teams Cloud Engagement Partner Relationship Specialty Start Date End Date Ben Arce M.D. PCP - General Family Medicine 01/13/[address] [place] [phone] documented as of this encounter
--- OUTSIDE RECORDS SUMMARY | 2022-06-28 07:25 | XMS_ITS | Encounter Summary ---
:1990 Author Organization [facility] Address [address] [place] [address] Care Team Providers Name Role Phone Ben Arce M.D. Primary Care Provider Reason for Visit Reason Comments Med Refill Encounter Details Date Type Department Care Team Description 03/16/2021 Refill Department of Family Medicine Ben Maynard M.D. Med Refill in [facility] [address] [place] [phone] (Wo rk) Social History Tobacco Use Types [...] do you attend confucianist or Never 2021 yarsanism services? Do you [...] at Date Recorded Female 12/02/2021 5:19 PM PRINTING AND STAMPING SUPERVISOR documented as of this encounter Miscellaneous Notes Telephone Encounter - Celina Goyal RMaribellN. - 03/16/2021 11:58 AM CDT Refills must come from Dr Arce due to a Restricted program Unable to refill per protocol: Name of Medications Needing Refill: Naproxen Last Refill Date: 02/10/21 [id number], 0 refills Last / Future Appointment: 01/13/21 documented in this encounter Plan of Treatment Not on filedocumented as of this encounter Visit Diagnoses Diagnosis Pain Elbow Left documented in this encounter Care Teams Seal Extrusion Operator Relationship Specialty Start Date End Date Ben Arce M.D. PCP - General Family Medicine 01/13/[address] [place] [address] documented as of this encounter
--- OUTSIDE RECORDS SUMMARY | 2022-06-28 07:25 | XMS_ITS | Encounter Summary ---
:1990 Author Organization [facility] Address [address] [place] [address] Care Team Providers Name Role Phone Elsewhere, Pcp Primary Care Provider Unavailable Reason for Visit Reason Comments Arm Injury pt presents with left arm (e lbow area) pain after falling this morning around 0730. Pt fell outside on icy pavement. No other injuries. Pt did work all day at [employer]. Encounter Details Date Type Department Care Team Description 12/14/2020 Emergency [place] [facility] CalderonBull M, Inj ury Arm Initial Left Department M.D. (Primary Dx) [address] [place] [phone] Social History Tobacco Use Types Packs/Day Years [...] do you attend catholic or Never 2021 hindu services? Do [...] at Date Recorded Female 12/02/2021 5:19 PM DRAMA PROFESSOR documented as of this encounter Last Filed Vital Signs Vital Sign Reading Time Taken Comments Blood Pressure 149/105 12/14/2020 6:00 PM DRAMA PROFESSOR Pulse 68 12/14/2020 6:10 PM DRAMA PROFESSOR Temperature 37.1 ??C (98.8 ??F) 12/14/2020 6:00 PM DRAMA PROFESSOR Respiratory Rate 16 12/14/2020 6:00 PM DRAMA PROFESSOR Oxygen Saturation 97% 12/14/2020 6:10 PM DRAMA PROFESSOR Inhaled Oxygen Concentration - - Weight 71.8 kg (158 lb 4.6 oz) 12/14/2020 5:24 PM DRAMA PROFESSOR Height 152 cm (4' 11.84) 12/14/2020 5:24 PM DRAMA PROFESSOR Body Mass Index 31.08 12/14/2020 5:24 PM DRAMA PROFESSOR documented in this encounter Discharge Instructions AttachmentsThe following attachments cannot be sent through Care Everywhere.RICE Therapy for Routine Care of Injuries Yqml-sc-Hzzt (Luxembourgish)documented in this encounter Medications at Time [...] injuries. Pt did work all day at [employer]. ) HISTORY OF PRESENT ILLNESS 30-year-old female [...] the fall. She went to work at [employer], where she work throughout the day, though [...] Arm Initial Left Bull Calderon M.D. 12/14/201810 A PROFESSOR documented in this encounter Plan of Treatment Not on filedocumented as of this encounter Procedures Procedure Name Priority Date/Time Associated Comments Diagnosis DX WRIST LEFT 3+ RAD - Semiurgent 12/14/2020 5:57 Resu lts for this VIEWS (Fast; most ED PM DRAMA PROFESSOR procedure are in patients; some the results inpatients) section. DX SHOULDER LEFT RAD - Semiurgent 12/14/2020 5:54 Resu lts for this 2+ VIEWS (Fast; most ED PM DRAMA PROFESSOR procedure are in patients; some the results inpatients) section. DX ELBOW LEFT 3+ RAD - Semiurgent 12/14/2020 5:52 Resu lts for this VIEWS (Fast; most ED PM DRAMA PROFESSOR procedure are in patients; some the results inpatients) section. documented in this encounter Results DX Wrist Left 3+ Views (12/14/2020 5:57 PM DRAMA PROFESSOR) Anatomical Region Laterality Modality Upper Extremity, Wrist, Musculoskeletal RST LOS, Left Digital Radiography Musculoskeletal ARZ LOS, Muskuloskeletal FLA LOS Specimen (Source) Anatomical Collection Method Collection Time Re ceived Time Location / / Volume Laterality 12/14/2020 5:58 PM DRAMA PROFESSOR Impressions 12/14/2020 5:59 PM DRAMA PROFESSOR No acute radiographic abnormalities are demonstrated. Narrative 12/14/2020 5:59 PM DRAMA PROFESSOR EXAM: DX WRIST LEFT 3+ VIEWS COMPARISON: [...] Shoulder Left 2+ Views (12/14/2020 5:54 PM DRAMA PROFESSOR) Anatomical Region Laterality Modality Upper Extremity, Shoulder, Musculoskeletal RST LOS, Left Digital Radiography Musculoskeletal ARZ LOS, Muskuloskeletal FLA LOS Specimen (Source) Anatomical Collection Method Collection Time Re ceived Time Location / / Volume Laterality 12/14/2020 5:57 PM DRAMA PROFESSOR Impressions 12/14/2020 5:58 PM DRAMA PROFESSOR No acute radiographic abnormalities are demonstrated. Narrative 12/14/2020 5:58 PM DRAMA PROFESSOR EXAM: DX SHOULDER LEFT 2+ VIEWS COMPARISON: [...] Elbow Left 3+ Views (12/14/2020 5:52 PM DRAMA PROFESSOR) Anatomical Region Laterality Modality Upper Extremity, Elbow, Musculoskeletal RST LOS, Left Digital Radiography Musculoskeletal ARZ LOS, Muskuloskeletal FLA LOS Specimen (Source) Anatomical Collection Method Collection Time Re ceived Time Location / / Volume Laterality 12/14/2020 5:56 PM DRAMA PROFESSOR Impressions 12/14/2020 5:57 PM DRAMA PROFESSOR No acute radiographic abnormalities are demonstrated. Narrative 12/14/2020 5:57 PM DRAMA PROFESSOR EXAM: DX ELBOW LEFT 3+ VIEWS COMPARISON: [...] tablet 1,000 mg Given 12/14/2020 5:28 PM DRAMA PROFESSOR 1,000 mg (TYLENOL) 1,000 mg, oral, Once, On Sun12/14/20 at 1721, For 1 dose documented in this encounter Active and Recently Administered Medications Times are shown in DRAMA PROFESSOR. Scheduled Medication Order 12/12/2020 12/13/2020 12/14/2020 acetaminophen tablet 1,000 mg (TYLENOL) (COMPLETED) 1728 (Given - Provider: Nita Maira, R.N.) 1,000 mg, oral, Once, On Sun12/14/20 at 1721, For 1 dose documented in this encounter Care Teams Card Hanger Relationship Specialty Start Date End Date Elsewhere, Pcp PCP - General Family Medicine 01/08/18 01/12/21 documented as of this encounter
--- OUTSIDE RECORDS SUMMARY | 2022-06-28 07:25 | XMS_ITS | Encounter Summary ---
:1990 Author Organization [facility] Address [address] [place] [address] Care Team Providers Name Role Phone Ben Arce M.D. Primary Care Provider Encounter Details Date Type Department Care Team Description 01/21/2021 Orders Only [facility] PCP TH Teja Zuniga Jr., M.D. [address] [place] [address] [place] [phone] (Wo rk) Social History Tobacco [...] do you attend yarsanism or Never 2021 samaritan services? Do you [...] Date Recorded Female 12/02/2021 5:19 PM WATER VESSEL CAPTAIN documented as of this encounter Plan of Treatment Not on filedocumented as of this encounter Visit Diagnoses Not on filedocumented in this encounter Care Teams Health Services Director Relationship Specialty Start Date End Date Ben Arce M.D. PCP - General Family Medicine 01/13/[address] [place] [phone] documented as of this encounter
--- OUTSIDE RECORDS SUMMARY | 2022-06-28 07:25 | XMS_ITS | Encounter Summary ---
:1990 Author Organization [facility] Address [address] [place] [address] Care Team Providers Name Role Phone Elsewhere, Pcp Primary Care Provider Unavailable Reason for Visit Reason Comments Sinusitis Encounter Details Date Type Department Care Team Description 01/10/2020 Office Visit Urgent Care, [facility], Sin usitis Acute [place], in [place], FATOU, C.N.P., (Samina pendleton Dx) [place] D.N.P. [address] [place] [phone] [phone] Social History Tobacco Use Types Packs/Day Years [...] do you attend jew or Never 2021 yazidism services? Do you [...] at Date Recorded Female 12/02/2021 5:19 PM BUFFER MACHINE documented as of this encounter Last Filed [...] Body Mass Index 30.4 12/26/2019 9:26 AM BUFFER MACHINE documented in this encounter Patient Instructions Patient [...] bacteria. Still, most people seen in the [facility] for upper respiratory infectionor sinusitis [...] replace them as recommended by the metal hardener. Note: Having your humidity too high (more [...] help open sinuses and allow easier breathing. Zngw-yil-mssfkwx treatments* In addition to the previous suggestions, you may get relief for nasal and sinus obstruction or discomfort by taking non-prescription, hbhn-rei-cnmbbdh (OTC) medications. Many OTC medications combine a [...] 2008 [employer] ([facility]). All rights reserved. [id number] documented in this encounter Progress Notes Esther [...] Primary documented in this encounter Care Teams Dining Room Maid Relationship Specialty Start Date End Date Elsewhere, Pcp PCP - General Family Medicine 01/08/18 01/12/21 documented as of this encounter
--- OUTSIDE RECORDS SUMMARY | 2022-06-28 07:26 | XMS_ITS | Encounter Summary ---
:1990 Author Organization [facility] Address [address] [place] [address] Care Team Providers Name Role Phone Elsewhere, Pcp Primary Care Provider Unavailable Reason for Referral Outpatient (Routine) - Closed Specialty Diagnoses / Procedures Referred By Contact Refer red To Contact Family Medicine Ben Arce M.D. [facility] Region [address] [place] [phone] Referral ID Status Reason Start Date Expiration Date Visits Requ ested Visits Authorized [id number] Closed 01/28/2019 01/28/2020 1 1 Reason for Visit Reason Comments Follow-up Sprain knee Encounter Details Date Type Department Care Team Description 01/28/2019 Comprehensive Visit Department of Ben Metzger, Pain Knee Left (Primary Dx); [facility]; [place], [place] [address] Thrombosis Superficial Vein Lower Extremity Left [address] [place] [phone] Social History Tobacco Use Types Packs/Day Years [...] do you attend alevism or Never 2021 adventism services? Do you belong to any clubs or No 11/20/2021 organizations such as alevism groups, unions, fraTagstr or athletic groups, or school groups? How [...] Date Recorded Female 12/02/2021 5:19 PM FLOOR DIRECTOR documented as of this encounter Last [...] Name Type Priority Associated Diagnoses Order [facility] Medicine Outpatient Referral Routine Expec taurus: [...] Leg documented in this encounter Care Teams Lumber Chain Offbearer Relationship Specialty Start Date End Date Elsewhere, Pcp PCP - General Family Medicine 01/08/18 01/12/21 documented as of this encounter
--- OUTSIDE RECORDS SUMMARY | 2022-06-28 07:26 | XMS_ITS | Encounter Summary ---
:1990 Author Organization [facility] Address [address] [place] [address] Care Team Providers Name Role Phone Elsewhere, Pcp Primary Care Provider Unavailable Reason for Referral Outpatient (Routine) - Closed Specialty Diagnoses / Procedures Referred By Contact Refer red To Contact Emergency Medicine Diagnoses Pain Neck Strain Neck Initial Contusion Leg Initial Left Derrek Leon M.D. [facility] Region [address] [place] [address] Referral ID Status Reason Start Date Expiration Date Visits Requ ested Visits Authorized [id number] Closed 08/01/2019 07/31/2020 1 1 Reason for Visit Reason Comments Neck Pain Pt presents from Urgent care for evaluation of neck pain and tingling of left leg. Encounter Details Date Type Department Care Team Description 08/01/2019 Emergency [place] [facility] Derrek Leon Pa in Neck (Primary Dx); Department M.DMaribell Strain Neck Initial; [address] [facility] [address] [facility] Contusion Leg Initial Left; [place], [place] Paresthesias Feet [phone] Social History Tobacco Use Types Packs/Day [...] do you attend denominational or Never 2021 mandaen services? Do you [...] at Date Recorded Female 12/02/2021 5:19 PM JITNEY DRIVER documented as of this encounter Last [...] be sent through Care Everywhere. Muscle Strain (Malagasy)Cervical Sprain (Malagasy)Contusion (Malagasy)documented in this encounter Medications at Time of [...] Feet documented in this encounter Care Teams Head Soft Sugar Operator Relationship Specialty Start Date End Date Elsewhere, Pcp PCP - General Family Medicine 01/08/18 01/12/21 documented as of this encounter
--- OUTSIDE RECORDS SUMMARY | 2022-06-28 07:26 | XMS_ITS | Encounter Summary ---
:1990 Author Organization [facility] Address [address] [place] [address] Care Team Providers Name Role Phone Elsewhere, Pcp Primary Care Provider Unavailable Reason for Visit Reason Comments Nasal Congestion pt presents concerned for po ssible sinus infection. c/o of facial pain, congestion, ear pain a nd throat pain. symptoms for approx one month. denies fevers. has be en taking mucinex Encounter Details Date Type Department Care Team Description 03/28/2019 Emergency [place] Emergency Valerie Malone, Infec kori Upper Department M.DMaribell Respiratory (Primary [address] Dx) [place] [phone] Social History Tobacco Use Types Packs/Day Years [...] do you attend congregation or Never 2021 mosque services? Do you [...] Date Recorded Female 12/02/2021 5:19 PM SUPERVISOR LAST MODEL DEPARTMENT documented as of this encounter Last Filed [...] Primary documented in this encounter Care Teams Php Website Developer Relationship Specialty Start Date End Date Elsewhere, Pcp PCP - General Family Medicine 01/08/18 01/12/21 documented as of this encounter
--- OUTSIDE RECORDS SUMMARY | 2022-06-28 07:26 | XMS_ITS | Encounter Summary ---
:1990 Author Organization [facility] Address [address] [place] [address] Care Team Providers Name Role Phone Elsewhere, Pcp Primary Care Provider Unavailable Reason for Visit Reason Comments PAYAL has had symptoms for 3-4 we eks Muscle Pain chest and back -05/31, has been using ibuprofen Encounter Details Date Type Department Care Team Description 10/31/2018 Emergency [place] Emergency Valerie Malone, Infec kori Upper Department MMaribellDMaribell Respiratory (Primary [address] Dx) [place] [phone] [phone] Social History Tobacco Use Types Packs/Day Years [...] do you attend zoroastrianism or Never 2021 anabaptist services? Do you [...] at Date Recorded Female 12/02/2021 5:19 PM TUMBLER PLATER documented as of this encounter Last Filed Vital Signs Vital Sign Reading Time Taken Comments Blood Pressure 134/95 10/31/2018 6:52 PM TUMBLER PLATER Pulse 81 10/31/2018 6:06 PM TUMBLER PLATER Temperature 37.2 ??C (99 ??F) 10/31/2018 6:52 PM TUMBLER PLATER Respiratory Rate 20 10/31/2018 6:06 PM TUMBLER PLATER Oxygen Saturation 98% 10/31/2018 6:06 PM TUMBLER PLATER Inhaled Oxygen Concentration - - Weight 73.3 kg (161 lb 9.6 oz) 10/31/2018 6:04 PM TUMBLER PLATER Height 152.4 cm (5') 10/31/2018 6:04 PM TUMBLER PLATER Body Mass Index 31.56 10/31/2018 6:04 PM TUMBLER PLATER documented in this encounter Discharge Instructions AttachmentsThe following attachments cannot be sent through Care Everywhere. Upper Respiratory Infection Adult Gbut-db-Shoa (Bengali)documented in this encounter Medications at Time [...] Upper Respiratory Valerie Malone M.D. 10/31/18 1840 LER PLATER documented in this encounter Plan of Treatment Not on filedocumented as of this encounter Visit Diagnoses Diagnosis Infection Upper Respiratory - Primary documented in this encounter Care Teams Cloth Doubling Machine Operator Relationship Specialty Start Date End Date Elsewhere, Pcp PCP - General Family Medicine 01/08/18 01/12/21 documented as of this encounter
--- OUTSIDE RECORDS SUMMARY | 2022-06-28 07:26 | XMS_ITS | Encounter Summary ---
:1990 Author Organization [facility] Address [address] [place] [address] Care Team Providers Name Role Phone Elsewhere, [...] Type Department Care Team Description 07/23/2019 Emergency [place] [facility] Bull Calderon Cos tochondritis (Primary Department M.D. Dx) [address] [facility] [place] [phone] Social History Tobacco Use Types Packs/Day Years [...] do you attend congregational or Never 2021 yazidi services? Do you [...] at Date Recorded Female 12/02/2021 5:19 PM NETEZZA ARCHITECT documented as of this encounter Last [...] cannot be sent through Care Everywhere. Costochondritis Oodz-id-Kshe (Yoruba)documented in this encounter Medications at Time of [...] Plan Impression: Costochondritis Plan: Patient has utilize vdrz-vhf-znaxxtr medications without improvement or alteration in her symptomatology. Patient be started on prednisone 20 mg daily for 5 days, the 1st dose administered here in the emergency department. Ultram 50 mg 1/2-1 tablet to be utilized every 6 hours as needed for painrating 7-10/10 severity, quantity 15 with no refills was prescribed from the [employer] medication dispenser as it is currently raining [...] dose documented in this encounter Care Teams Director Market Intelligence Relationship Specialty Start Date End Date Elsewhere, Pcp PCP - General Family Medicine 01/08/18 01/12/21 documented as of this encounter
--- OUTSIDE RECORDS SUMMARY | 2022-06-28 07:26 | XMS_ITS | Encounter Summary ---
:1990 Author Organization [facility] Address [address] [place] [address] Care Team Providers Name Role Phone Elsewhere, [...] Type Department Care Team Description 07/29/2019 Emergency [place] [facility] Sigrid Forbes ontusion Left Lower Department D, MMaribellDMaribell Leg Initial (Primary [address] Dx) [place] [phone] (Wo rk) Social History Tobacco Use Types [...] do you attend shinto or Never 2021 protestant services? Do you belong to any clubs or No 11/20/2021 organizations such as shinto groups, unions, fraPrepClass or athletic groups, or school groups? 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 Thank you for choosing [facility] for your care. It was a pleasure taking care of you today in our Emergency Department. AttachmentsThe following attachments cannot be sent through Care Everywhere. Contusion Zgnp-go-Lpxi (Mohawk)documented in this encounter Medications at Time of Discharge Medication Sig Dispensed Refills Start Date End Date acetaminophen (TYLENOL Take by mouth as 0 08/11/2019 ORAL) needed. etonogestreL (NEXPLANON) 1 each by implant 0 12/2112/20/2021 68 mg subdermal implant route continuously. documented as of this encounter ED Notes Sigrid Forbes M.D. - 07/29/2019 4:50 PM CDT [facility] EM[facility]GENCY DE[facility]MENT ENCOUNTER Patient Name: [...] of the incident with the reassuring [facility], I do not feel [...] CDT eGFR-Black/Afric >90 >=60 07/29/2019 [facility] an Algerian mL/min/BSA 6:50 PM CDT Comment: ----ADDITIONAL INFORMATION---- [...] Organization Address City/State/ZIP Code Phon e Number [facility]- [address] [place] [address] [address] [place] [address] [place] [address] [address] [facility] (ABNORMAL) CBC without Differential (07/29/2019 6:21 PM CDT) [facility] Method Time Signature Hemoglobin 13.2 [...] Organization Address City/State/ZIP Code Phon e Number [facility]- [address] [place], [place] [address] [facility] [place] [address] [facility] [address] DX [...] Sigrid Forbes M.D. IMG DIAGNOSTIC IMAGING PROCE [facility] CT Lumbar Spine by Reconstruction [...] LEFT tibia and fibula Sigrid Forbes M.D. [facility] DIAGNOSTIC IMAGING PROCE DURES DX Femur Left [...] (Given - Provider: Gurdeep Persaud(R)(CT) - Comment: [id number]) 100 mL, intravenous, Once in imaging, co [...] 1651 documented in this encounter Care Teams Rock Lather Relationship Specialty Start Date End Date Elsewhere, Pcp PCP - General Family Medicine 01/08/18 01/12/21 documented as of this encounter
--- OUTSIDE RECORDS SUMMARY | 2022-06-28 07:26 | XMS_ITS | Encounter Summary ---
:1990 Author Organization [facility] Address [address] [place] [address] Care Team Providers Name Role Phone Elsewhere, Pcp Primary Care Provider Unavailable Reason for Referral Outpatient (Routine) - Closed Specialty Diagnoses / Procedures Referred By Contact Refer red To Contact Neurology Diagnoses Contusion Leg Initial Left Numbness Ben Arce M.D. [facility] Region [address] [place] [address] Referral ID Status Reason Start Date Expiration Date Visits V isits Requested Authorized [id number] Closed Specialty 08/11/2019 08/10/2020 1 1 Services Required Reason for Visit Reason Comments Follow-up ED 08/01 [facility] Outpatient (Routine) - Closed Specialty Diagnoses / Procedures Referred By Contact Refer red To Contact Emergency Medicine Diagnoses Pain Neck Strain Neck Initial Contusion Leg Initial Left Derrek Leon M.D. [facility] Region [facility] [place] [address] Referral ID Status Reason Start Date Expiration Date Visits Requ ested Visits Authorized [id number] Closed 08/01/2019 07/31/2020 1 1 Encounter Details Date Type Department Care Team Description 08/11/2019 Office Visit Department of Ben Metzger M.D. Pain Neck (Primary Dx); Medicine in [facility] [address] Strain Neck Initial; [place], [place] Contusion Leg Initial Left; [address] [place] [address] Numbness [place], [place] [phone] [address] (Work) [phone] Social History Tobacco Use Types Packs/Day Years [...] do you attend mosque or Never 2021 restoration services? 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
--- OUTSIDE RECORDS SUMMARY | 2022-06-28 07:26 | XMS_ITS | Encounter Summary ---
:1990 Author Organization [facility] Address [address] [place] [address] Care Team Providers Name Role Phone Elsewhere, Pcp Primary Care Provider Unavailable Reason for Visit Reason Comments Follow-up Outpatient (Routine) - Closed Specialty Diagnoses / Procedures Referred By Contact Refer red To Contact Family Medicine Ben Arce M.D. [facility] Region [address] [place] [address] Referral ID Status Reason Start Date Expiration Date Visits Requ ested Visits Authorized [id number] Closed 01/28/2019 01/28/2020 1 1 Encounter Details Date Type Department Care Team Description 02/11/2019 Office Visit Department of Ben Metzger M.D. Thrombosis Superficial Medicine in [facility] [address] Vein Lower Extremity [place], [place] Left (Primary Dx) [address] [place] [place] [address] [place], [place] [phone] (Work) [phone] Social History Tobacco Use Types Packs/Day Years [...] do you attend samaritan or Never 2021 taoist services? Do you [...] at Date Recorded Female 12/02/2021 5:19 PM FINISHER HAND documented as of this encounter Last [...] Primary documented in this encounter Care Teams Gas Or Water Meter Installer Relationship Specialty Start Date End Date Elsewhere, Pcp PCP - General Family Medicine 01/08/18 01/12/21 documented as of this encounter
--- OUTSIDE RECORDS SUMMARY | 2022-06-28 07:26 | XMS_ITS | Encounter Summary ---
:1990 Author Organization [facility] Address [address] [place] [address] Care Team Providers Name Role Phone Elsewhere, Pcp Primary Care Provider Unavailable Reason for Referral MRI/CAT/PET Scan (Routine) - Closed Specialty Diagnoses / Procedures Referred By Contact Refer red To Contact Radiology Diagnoses Pain Cervical Estehr Andrea APRN, [facility] Region Procedures CT Thoracic Spine without IV Contrast C.N.P., D.N.P. [address] [place] [address] Referral ID Status Reason Start Date Expiration Date Visits Requ ested Visits Authorized [id number] Closed 08/01/2019 07/31/2020 1 1 Reason for Visit MRI/CAT/PET Scan (Routine) - Closed Specialty Diagnoses / Procedures Referred By Contact Refer red To Contact Radiology Diagnoses Pain Cervical Emre, FATOU Santana, [facility] Region Procedures CT Thoracic Spine without IV Contrast C.N.P., D.N.P. [address] [place] [address] Referral ID Status Reason Start Date Expiration Date Visits Requ ested Visits Authorized [id number] Closed 08/01/2019 07/31/2020 1 1 Encounter Details Date Type Department Care Team Description 08/01/2019 Hospital Encounter Department of Radiology Eliazar Andrea, Pain Cervical [place] APRN C.N.P., [address] [facility] D.N.P. [place], [place] [address] [place] [address] [place], [place] [phone] Social History Tobacco Use Types Packs/Day [...] do you attend methodist or Never 2021 latter day services? Do [...] Date Recorded Female 12/02/2021 5:19 PM HR ADVISOR documented as of this encounter Medications at [...] Cervical documented in this encounter Care Teams Candy Packer Relationship Specialty Start Date End Date Elsewhere, Pcp PCP - General Family Medicine 01/08/18 01/12/21 documented as of this encounter
--- OUTSIDE RECORDS SUMMARY | 2022-06-28 07:26 | XMS_ITS | Encounter Summary ---
:1990 Author Organization [facility] Address [address] [place] [address] Care Team Providers Name Role Phone Unavailable Primary Care Provider Unavailable Encounter Details Date Type Department Care Team Description 06/14/2017 Hospital Encounter HX [facility] Essence Yin M.D. [address] [place], [place] [address] (Wo rk) Social History [...] do you attend yarsani or Never 2021 gnosticist services? 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 documented as of this encounter Last [...] 06/14/2017 9:06 PM CDT ED Depart Summary [facility] Emergency Department Clinical Discharge Summary PERSON INFORMATION Name DILLAN MATA Age 27 Years 1990 12:00 AM Sex Female Language Vincentian PCP PCP, ELSEWHERE Marital Status Unknown Visit Id Visit Reason Foot injury - Minor; FOOT PAIN Specialty Enc Type Emergency Med Service Emergency Medicine Referred by Track Group [facility] ED Discharge 06/14/2017 7:45 PM Tracking Id [id number] Checkout 06/14/2017 7:45 PM Checkin 06/14/2017 6:17 PM Acuity 4 -Less Urgent Dispo Type * Discharged to Home or Self Care Arrival 06/14/2017 6:17 PM Reg Status LOS 000 01:28 Address: [address] [place] [address] [phone] Comment: PROVIDER INFORMATION Provider Role Provider Contact Time CHAVA KUHN CARDING DOUBLER Nurse 06/14/17 18:44 CHU ADKINS MD ED Provider 06/14/17 18:52 ANDREW BROCK CARDING DOUBLER Nurse 06/14/17 19:21 DIAGNOSIS Sprain Foot Initial L Comment: PATIENT EDUCATION INFORMATION Instructions: SPRAIN FOOT Follow up: With: Address: When: Follow up with primary care in 1 week if not improving. Return to the ED for increasing pain or swelling. Within As Needed Source: [facility] POWERCHART Document Id: [id number] Andrew Brock R.N. - 06/14/2017 9:06 PM CDT ED Discharge Instructions [address] [address] Name: DILLAN MATA Date of : 1990 12:00 AM Visit Date: 06/14/2017 6:17 PM [facility] Number: [id number] Address: [address] [facility] [id number] Primary Care Provider: PCPBHARATHI IMPORTANT: [facility] in [place] would like to thank you for allowing [...] become cold, blue, numb, or tingly ?? [phone] [facility], [address] [place] [address]. All rights reserved. This information is not [...] you dont have one. Go to [email or web address] and click on Create Your Account. Then, follow the directions to complete the online form. Youll be asked for your [facility] number which you can find at [...] ride home with a responsible alliance party. All, DILLAN MATA , or responsible alliance party have received [...] ride home with a responsible alliance party. I, DILLAN MATA , or responsible alliance party have received this information and my questions have been answered. I have discussed any challenges I see with this plan with the nurse or physician. Patient Signature or Responsible Libertarian/Relationship Date Time Provider Signature Date Time This document has images extracted. Please consider using [employer] for all your patient education needs. Source: [employer] Document Id: [id number] Andrew Brock R.N. - 06/14/2017 7:45 PM CDT ED Disposition Summary ED Disposition Summary Entered On: 06/14/2017 20:33 CDT Performed On: 06/14/2017 19:45 CDT by ANDREW BROCK CARDING DOUBLER Disposition Summary Present in Room During Exam/Procedure : Alone Mode of Discharge : Ambulatory Transportation : Private vehicle Discharge From ED With : Home Med List Printed Discharge Instructions Given to Patient : Yes Patient Status at Discharge from ED : Improved 30 Minutes Critical Care : No ANDREW BROCK RN - 06/14/2017 20:33 CDT Source: [employer] Document Id: [id number] CDT!9 documented in this encounter Medications at [...] and calm RASS Score : 0 ANDREW BROKC RN - 06/14/2017 21:05 CDT Source: [facility] Document Id: [id number] CDT!18 Andrew Brock R.N. - 06/14/2017 7:30 [...] BROCK RN - 06/14/2017 22:10 CDT Source: [facility] POWERCHART Document Id: [id number] CDT!5 Andrew Brock R.N. - 06/14/2017 7:21 [...] ANDREW BROCK RN - 06/14/2017 19:21 CDT [place] Com[place] Eye Opening Response [place] : Spontaneously Best Verbal Response [place] : Oriented Best Motor Response Sophie : [...] BROCK RN - 06/14/2017 19:21 CDT Source: [facility] Document Id: [id number] CDT!37 Chu Adkins M.D. - 06/14/2017 6:52 [...] Patient Bed, Once, 06/14/2017 18:53 CDT, [facility] Urology. Radiology results:* Final [...] Transcribed by: ROSHAN Technologist: NAYANA ESPOSITO RT(R)(CT) [id number] This document has an image Result type: XR Foot Left 3 or more views Result date: June 14, 2017 19:14 CDT Result status: Auth (Verified) Result title: XR Foot Left 3 or more views Performed by: DAVID SEPULVEDA MD on June 14, 2017 19:18 CDT Verified by: DAVID SEPULVEDA MD on June 14, 2017 19:18 CDT Encounter info: [id number], [facility], Emergency, 06/14/2017 - . [...] ADKINS MD On: 06/14/2017 07:35 PM Source: [facility] POWERCHART Document Id: [id number]} Chava Kuhn R.N. - 06/14/2017 6:37 PM [...] PNED ; Probability: 0 ; Diagnosis Code: [id number] Triage Triage Treatments : Ice to affected [...] Ambulatory Track : Trauma Other Languages : Vincentian Vital Signs Assessed : Yes Treatments Prior [...] DCP GENERIC CODE Tracking Group : [facility] Tracking Acuity : 4 -Less Urgent [...] Heart Rhythm : Regular Skin Color : [place] Skin Description : Normal Skin Temperature : [...] KUHN RN - 06/14/2017 18:37 CDT Source: [facility] [employer] Document Id: [id number] CDT!3 documented in this encounter Miscellaneous Notes Miscellaneous - Andrew Brock RHarish - 06/14/2017 7:45 PM CDT Valuables/Belongings Valuables/Belongings Entered On: 06/14/2017 20:33 CDT Performed On: 06/14/2017 19:45 CDT by ANDREW BROCK RN Valuables/Belongings Belongings Sent Home With : All sent w/pt at d/c Home Medication Disposition : None brought in with patient ANDREW BROCK RN - 06/14/2017 20:32 CDT Source: [employer] Document Id: [id number] CDT!4 Miscellaneous - Conversion, Historical Provider Ser - 06/14/2017 7:45 PM CDT Coding Summary-Paper Based CODING DATE: 06/26/2017 FINAL AAKASH [place] [facility] STATUS: * Discharged to Home [...] LORD Date Saved: 06/26/2017 09:17 am Source: [employer] Document Id: [id number] documented in this encounter Plan of Treatment [...]
--- OUTSIDE RECORDS SUMMARY | 2022-06-28 07:26 | XMS_ITS | Encounter Summary ---
:1990 Author Organization [facility] Address [address] [place] [address] Care Team Providers Name Role Phone Elsewhere, Pcp Primary Care Provider Unavailable Reason for Visit Reason Comments Sore Throat SX: in ER Sunday with josiane st inflammation; st started Encounter Details Date Type Department Care Team Description 07/26/2019 [facility] (Primary Dx) [place], [place] [address], [address] [place] [address] [phone] (Wo rk) Social History Tobacco Use Types [...] do you attend islam or Never 2021 sikhism services? 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 documented as of this encounter Last [...] Organization Address City/State/ZIP Code Phon e Number [place] [address] [address] [place] [address] [facility], PCR, Point [...] Organization Address City/State/ZIP Code Phon e Number [place] [address] [address] [place] [address] [facility] documented in this encounter Visit Diagnoses Diagnosis Pharyngitis Acute - Primary documented in this encounter Care Teams Oral Surgeon Relationship Specialty Start Date End Date Elsewhere, Pcp PCP - General Family Medicine 01/08/18 01/12/21 documented as of this encounter
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
--- OUTSIDE RECORDS SUMMARY | 2022-06-28 07:26 | XMS_ITS | Encounter Summary ---
:1990 Author Organization [facility] Address [address] [place] [address] Care Team Providers Name Role Phone Elsewhere, Pcp Primary Care Provider Unavailable Reason for Visit Reason Comments Headache frontal and middle of head Earache Cipriano ear pain Sore Throat drainage Sinus Problem over 1 month Encounter Details Date Type Department Care Team Description 01/07/2018 Office Visit [facility] in [facility] [place], [place] FATOU Samuel, C.N.P., (Primary Dx) [address] [address] Social History Tobacco Use Types Packs/Day Years [...] do you attend christian or Never 2021 mormon services? 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 She works at [employer] with several people throughout theday. She has [...] Primary documented in this encounter Care Teams Milling Supervisor Relationship Specialty Start Date End Date Elsewhere, Pcp PCP - General Family Medicine 01/08/18 01/12/21 documented as of this encounter
--- OUTSIDE RECORDS SUMMARY | 2022-06-28 07:26 | XMS_ITS | Encounter Summary ---
:1990 Author Organization [facility] Address [address] [place] [address] Care Team Providers Name Role Phone Elsewhere, Pcp Primary Care Provider Unavailable Reason for Visit Reason Comments Sore Throat pt with 2 1/2 week history o f sinus congestion now presents with sore throat. Throat pain started about 4 days ago, and is getting worse every day. Encounter Details Date Type Department Care Team Description 09/22/2018 Emergency [place] [facility] Marissa Mccormack, Catie lawsonnicole Acute Department D.O. (Primary Dx) [address] [place] [phone] Social History Tobacco Use Types Packs/Day Years [...] do you attend hindu or Never 2021 quaker services? Do you [...] at Date Recorded Female 12/02/2021 5:19 PM KILNMAN documented as of this encounter Last Filed Vital Signs Vital Sign Reading Time Taken Comments Blood Pressure 128/88 09/22/2018 9:00 AM KILNMAN Pulse 88 09/22/2018 9:00 AM KILNMAN Temperature 37.5 ??C (99.5 ??F) 09/22/2018 9:00 AM KILNMAN Respiratory Rate 16 09/22/2018 9:00 AM KILNMAN Oxygen Saturation 99% 09/22/2018 9:00 AM KILNMAN Inhaled Oxygen Concentration - - Weight 71.9 kg (158 lb 8.2 oz) 09/22/2018 8:10 AM KILNMAN Height 157 cm (5' 1.81) 09/22/2018 8:10 AM KILNMAN Body Mass Index 29.17 09/22/2018 8:10 AM KILNMAN documented in this encounter Discharge Instructions Discharge InstructionsBuMarissa lopez D.O. - 09/22/2018 8:59 AM CST Take the steroids daily, and take ibuprofen and/or tylenol as needed for pain. You should return to the ED for dehydration, if you are more swollen, have difficulty breathing or cannot swallow. MAN AttachmentsThe following attachments cannot be sent through Care Everywhere.Sore Throat (Chinese)documented in this encounter Medications at Time [...] Pharyngitis Acute Marissa Mccormack D.O. 09/22/18 0917 MAN documented in this encounter Plan of Treatment Not on filedocumented as of this encounter Procedures Procedure Name Priority Date/Time Associated Diagnosis Comme nts RAPID STREP A STAT 09/22/2018 8:37 AM Results for this SCREEN KILNMAN procedure are i n the results section. BACTERIAL CULTURE, STAT 09/22/2018 8:37 AM Res ults for this THROAT KILNMAN procedure are i n the results section. documented in this encounter Results Bacterial Culture, Throat (09/22/2018 8:37 AM KILNMAN) [facility] gist Method Time Signature Throat No growth of 09/24/2018 [facility] Culture Streptococcus 7:07 AM [facility] pyogenes [facility] Specimen Anatomical Collection Method Collection Time Receive d Time (Source) Location / / Volume Laterality Throat Swab 09/22/2018 8:37 AM 8 3:28 KILNMAN PM KILNMAN Marissa Mccormack D.O. LAB MICROBIOLOGY - GENERAL O RDERABLES Performing Organization Address City/State/ZIP Code Phon e Number [facility] [address] [place] [address] LAB Rapid Strep A Screen (09/22/2018 8:37 AM KILNMAN) P athologist Signature Rapid Strep A Negative Negative 09/22/2018 [facility] Screen 8:[address] [facility] Specimen Anatomical Collection Method Collection Time Receive d Time (Source) Location / / Volume Laterality Varies (Throat) 09/22/2018 8:37 AM 2017 8:41 KILNMAN AM KILNMAN Marissa Mccormack D.O. LAB MICROBIOLOGY - GENERAL O RDERABLES Performing Organization Address City/State/ZIP Code Phon e Number [address] [address] [place] [facility] documented in this encounter Visit Diagnoses Diagnosis Pharyngitis Acute - Primary documented in this encounter Care Teams Contact Finger Assembler Relationship Specialty Start Date End Date Elsewhere, Pcp PCP - General Family Medicine 01/08/18 01/12/21 documented as of this encounter
--- OUTSIDE RECORDS SUMMARY | 2022-06-28 07:26 | XMS_ITS | Encounter Summary ---
:1990 Author Organization [facility] Address [address] [place] [address] Care Team Providers Name Role Phone Elsewhere, Pcp Primary Care Provider Unavailable Reason for Visit MRI/CAT/PET Scan (Routine) - Closed Specialty Diagnoses / Procedures Referred By Contact Refer red To Contact Radiology Diagnoses Pain Cervical Esther Andrea, PIN INSERTER, [facility] Region Procedures CT Cervical Spine without IV Contrast C.N.P., D.N.P. [address] [place] [address] Referral ID Status Reason Start Date Expiration Date Visits Requ ested Visits Authorized [id number] Closed 08/01/2019 07/31/2020 1 1 Encounter Details Date Type Department Care Team Description 08/01/2019 Hospital Encounter Department of Radiology Eliazar Andrea britt, in [facility] FATOU, C.N.P., [address] [place] D.N.P. [place], [place] [phone] [place] [phone] [place] [phone] Social History Tobacco Use Types Packs/Day Years [...] do you attend yarsanism or Never 2021 oriental orthodox services? Do you belong to any clubs or No 11/20/2021 organizations such as yarsanism groups, unions, [employer]utchison [employer] or athletic groups, or school groups? How [...] at Date Recorded Female 12/02/2021 5:19 PM DELIVERY DIRECTOR documented as of this encounter Medications [...] N/A Computed Tomography ARZ LOS, Neuroradiology [facility] Specimen (Source) Anatomical Collection Method Collection [...] on filedocumented in this encounter Care Teams Laminating Machine Feeder Relationship Specialty Start Date End Date Elsewhere, Pcp PCP - General Family Medicine 01/08/18 01/12/21 documented as of this encounter
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
--- OUTSIDE RECORDS SUMMARY | 2022-06-28 07:26 | XMS_ITS | Encounter Summary ---
:1990 Author Organization [facility] Address [address] [place] [address] Care Team Providers Name Role Phone Elsewhere, Pcp Primary Care Provider Unavailable Encounter Details Date Type Department Care Team Description 01/28/2019 Hospital Encounter Department of Radiology, Ben Arias M.D. [place] [address] [address] [place], [place] [facility] [address] [place] [address] [phone] Social History Tobacco Use Types Packs/Day Years [...] do you attend yazidi or Never 2021 sikh services? Do you [...] at Date Recorded Female 12/02/2021 5:19 PM GUM WORKER documented as of this encounter Medications at [...] on filedocumented in this encounter Care Teams White Sugar Syrup Operator Relationship Specialty Start Date End Date Elsewhere, Pcp PCP - General Family Medicine 01/08/18 3 documented as of this encounter
--- OUTSIDE RECORDS SUMMARY | 2022-06-28 07:26 | XMS_ITS | Encounter Summary ---
:1990 Author Organization [facility] Address [address] [place] [address] Care Team Providers Name Role Phone Elsewhere, Pcp Primary Care Provider Unavailable Encounter Details Date Type Department Care Team Description 01/28/2019 Hospital Encounter Department of Radiology Ben Arce M.D. Edema Leg in [place], [place] [address] [place] [phone] Social History Tobacco Use Types Packs/Day Years [...] do you attend restorationist or Never 2021 zoroastrianism services? 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
--- OUTSIDE RECORDS SUMMARY | 2022-06-28 07:26 | XMS_ITS | Encounter Summary ---
:1990 Author Organization [facility] Address [address] [place] [address] Care Team Providers Name Role Phone Elsewhere, Pcp Primary Care Provider Unavailable Reason for Visit Reason Comments Sinus Symptoms ST, Cipriano ear pressure, conges tion; 3.5 wks ago Encounter Details Date Type Department Care Team Description 06/27/2019 Office Visit Urgent Care, [facility] [place], [place] [address], [address] [place] [phone] (Wo rk) Social History Tobacco Use Types [...] do you attend congregational or Never 2021 latter-day services? 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
--- OUTSIDE RECORDS SUMMARY | 2022-06-28 07:26 | XMS_ITS | Encounter Summary ---
:1990 Author Organization [facility] Address [address] [place] [address] Care Team Providers Name Role Phone Elsewhere, Pcp Primary Care Provider Unavailable Reason for Referral Outpatient (Routine) - Canceled Specialty Diagnoses / Procedures Referred By Contact Refer red To Contact Diagnoses Numbness Ben Arce M.D. External, Referring [address] [place] [address] Referral ID Status Reason Start Date Expiration Date Visits V isits Requested Authorized [id number] Canceled No 08/26/2019 08/25/2020 1 1 access/unsa tisfactory access CTOR SMB SALES Reason for Visit Reason Onset Date Comments Communication 08/26/2019 Encounter Details Date Type Department Care Team Description 08/26/2019 Clinical Communication Department of Ben Metzger , Communication Medicine in [place], [place] [address] [place] [phone] Social History Tobacco Use Types Packs/Day Years [...] do you attend christianity or Never 2021 cheondoism services? Do you belong to any clubs or No 11/20/2021 organizations such as christianity groups, unions, fraRackwise or athletic groups, or school groups? How [...] Date Recorded Female 12/02/2021 5:19 PM DIRECTOR SMB SALES documented as of this encounter Miscellaneous Notes Telephone Encounter - Alexandria Whittington - 08/27/2019 9:52 AM CST I will work on this. CTOR SMB SALES Telephone Encounter - Sridhar Espinal - 08/27/2019 8:24 AM CST Alexandria, can you work on this please? Thank you!! CTOR SMB SALES Telephone Encounter - Ben Arce M.D. - 08/26/2019 3:36 PM CST External referral order placed. Please help her to find nearby neurology. None in [place], she has travel to [place] or [facility]. Thanks. CTOR SMB SALES Telephone Encounter - Nadya Koehler, RMaribellN. - 08/26/2019 12:19 PM DIRECTOR SMB SALES Can an outside referral be entered for neurology for sooner appointment? Thank you. CTOR SMB SALES Telephone Encounter - Rylie Juárez - 08/26/2019 12:[address] Daiana Booth does not have an opening in [place] until December and Lulu cannot [facility]. Can a referral be placed for a neurologist that is closer? CTOR SMB SALES documented in this encounter Plan of Treatment Not on filedocumented as of this encounter Visit Diagnoses Diagnosis Numbness - Primary documented in this encounter Care Teams Hat Lacer Relationship Specialty Start Date End Date Elsewhere, Pcp PCP - General Family Medicine 01/08/18 01/12/21 documented as of this encounter
--- OUTSIDE RECORDS SUMMARY | 2022-06-28 07:26 | XMS_ITS | Encounter Summary ---
:1990 Author Organization [facility] Address [address] [place] [address] Care Team Providers Name Role Phone Elsewhere, Pcp Primary Care Provider Unavailable Reason for Visit Reason Comments Sinus Symptoms 30 + days ago Encounter Details Date Type Department Care Team Description 12/12/2018 Office Visit Express Care in [facility] Mario Savage, Inf ection [place], [place] P.A.-C. Respiratory (Primary [address], Dx) [facility] [address] [place], [place] [phone] (Wo rk) Social History Tobacco Use Types [...] do you attend hindu or Never 2021 jain services? 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 documented as of this encounter Last Filed Vital Signs Vital Sign Reading Time Taken Comments Blood Pressure 136/92 12/12/2018 7:15 PM BANK SECRECY ACT OFFICER Pulse 86 12/12/2018 7:15 PM BANK SECRECY ACT OFFICER Temperature 36.9 ??C (98.4 ??F) 12/12/2018 7:15 PM BANK SECRECY ACT OFFICER Respiratory Rate - - Oxygen Saturation 96% 12/12/2018 7:15 PM BANK SECRECY ACT OFFICER Inhaled Oxygen Concentration - - Weight 72 kg (158 lb 11.7 oz) 12/12/2018 7:15 PM BANK SECRECY ACT OFFICER Height - - Body Mass Index 31 10/31/2018 6:04 PM BANK SECRECY ACT OFFICER documented in this encounter Patient Instructions Patient [...] urgent care if worsening. Mario Savage P.A.-C. SECRECY ACT OFFICER documented in this encounter Progress Notes Mario [...] urgent care if worsening. Mario Savage P.A.-C. SECRECY ACT OFFICER documented in this encounter Plan of Treatment Not on filedocumented as of this encounter Visit Diagnoses Diagnosis Infection Upper Respiratory - Primary documented in this encounter Care Teams Mixer Wet Pour Relationship Specialty Start Date End Date Elsewhere, Pcp PCP - General Family Medicine 01/08/18 01/12/21 documented as of this encounter
--- OUTSIDE RECORDS SUMMARY | 2022-06-28 07:26 | XMS_ITS | Encounter Summary ---
:1990 Author Organization [facility] Address [address] [place] [address] Care Team Providers Name Role Phone Elsewhere, Pcp Primary Care Provider Unavailable Reason for Visit Reason Comments Sinus Symptoms 3 wks ago; started with ST, then ears and facial pressure. Pt using NetiPot. Sore Throat strep exposure at work Encounter Details Date Type Department Care Team Description 05/08/2018 Office Visit Express Care in [facility] Arely Ferrell [place], [place] PARKING TECHNICIAN, C.N.P. (Primary Dx) [address] [place] [phone] Social History Tobacco Use Types Packs/Day Years [...] do you attend religion or Never 2021 islam services? Do you [...] at Date Recorded Female 12/02/2021 5:19 PM ALIGNING CHECKER documented as of this encounter Last Filed [...] care provider none identified. Recently moved to [place]. REVIEW OF SYSTEMS Constitutional: Negative for fever. [...] Primary documented in this encounter Care Teams Data Modeling Specialist Relationship Specialty Start Date End Date Elsewhere, Pcp PCP - General Family Medicine 01/08/18 01/12/21 documented as of this encounter
--- OUTSIDE RECORDS SUMMARY | 2022-06-28 07:26 | XMS_ITS | Encounter Summary ---
:1990 Author Organization [facility] Address [address] [place] [address] Care Team Providers Name Role Phone Unavailable Primary Care Provider Unavailable Encounter Details Date Type Department Care Team Description 01/15/2017 Hospital Encounter HX [facility] Felix Guillen M.D. [address] [place], [place] [address] (Wo rk) Social History [...] do you attend jew or Never 2021 mu-ism services? 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 [address] Name: DILLAN MATA Date of : 1990 12:00 AM Visit Date: 01/15/2017 7:46 PM [facility] Number: [id number] Address: [address] [place] [address] Primary Care Provider: PCP, BHARATHI IMPORTANT: [facility] in [place] would like to thank you for allowing [...] becomes cold, blue, numb or tingly ?? [phone] [facility], [address] [place] [address], [place] [address]. All rights reserved. This information is not [...] if you dont have one. Go to [email or web address] and click on Create Your Account. Then, follow the directions to complete the online form. Youll be asked for your [facility] number which you can find at [...] a ride home with a responsible libertarian. ALRISSA Carrizales KALLIE or responsible libertarian have received this information and my questions have been answered. I have discussed any challenges I see with this plan with the nurse or physician. Patient Signature or Responsible Green Party/Relationship Date Time Provider Signature Date Time Source: [employer] Document Id: [id number] Angelica Sandra R.N. - 01/15/2017 11:20 PM CDT ED Depart Summary [facility] Emergency Department Clinical Discharge Summary PERSON INFORMATION Name DILLAN MATA Age 26 Years 1990 12:00 AM Sex Female Language Kyrgyz PCP PCP, ELSEWHERE Marital Status Unknown Visit Id Visit Reason Hand pain-swelling; SWOLLEN RIGHT HAND Specialty Enc Type Emergency Med Service Emergency Medicine Referred by Track Group MAQN ED Discharge 01/15/2017 11:10 PM Tracking Id [id number] Checkout 01/15/2017 11:10 PM Checkin 01/15/2017 7:46 PM Acuity 4 -Less Urgent Dispo Type * Discharged to Home or Self Care Arrival 01/15/2017 7:46 PM Reg Status LOS 000 03:24 Address: [address] [place] [address] Comment: PROVIDER INFORMATION Provider Role Provider Contact Time ANGELICA SANDRA ED Nurse 01/15/17 19:57 NIKOS MENDEZ MD ED Provider 01/15/17 20:09 DIAGNOSIS Contusion Hand Initial R Comment: PATIENT EDUCATION INFORMATION Instructions: CONTUSION, Hand Follow up: With: Address: When: Follow up with primary care provider Within As Needed Comments: Call for follow up appointment. If symptoms worsen. Source: [facility] POWERCHART Document Id: [id number] documented in this encounter Medications at Time [...] ANGELICA SANDRA - 01/15/2017 23:19 CDT Source: [employer] Document Id: [id number] CDT!9 Angelica Sandra R.N. - 01/15/2017 11:05 [...] ANGELICA SANDRA - 01/15/2017 23:19 CDT Source: [employer] Document Id: [id number] CDT!9 Angelica Sandra R.N. - 01/15/2017 11:02 [...] Motor Response Sophie : Obeys simple commands Brawley Coma Score : 15 ANGELICA SANDRA 01/15/2017 23:02 CDT GI Reassess GI Patient Stated Symptoms : None ANGELICA SANDRA - 01/15/2017 23:02 CDT /OB Reassess Patient Stated Symptoms : None ANGELICA SANDRA - 01/15/2017 23:02 CDT Source: [employer] Document Id: [id number] CDT!34 Kim Bartholomew R.N. - 01/15/2017 10:00 [...] Brenda RN - 01/15/2017 22:00 CDT Source: [employer] Document Id: [id number] CDT!15 Nikos Mendez M.D. - 01/15/2017 9:52 [...] Stat, Patient Bed, Once, 01/15/2017 21:53 CDT, [facility] Urology. Radiology results:Emergency physician interpretation: Creator: Nikos Mendez Date: Jan 15, 2017 23:04:53 Subject: Preliminary ER Physician Findings (preliminary only - not final):Three-view x-ray of the right hand: Negative for fracture or dislocation. Brant Cortes Impression and Plan Diagnosis Contusion Hand Initial R (Discharge, Emergency medicine, Medical) Plan Condition: Stable. Disposition: Discharged: Time 01/15/2017 23:05:00, to home. Prescriptions: Prescription [facility]: ibuprofen 200 mg oral tablet (Prescribe): [...] MENDEZ MD On: 01/15/2017 11:07 PM Source: [facility] POWERCHART Document Id: [id number]} Angelica Sandra R.N. - 01/15/2017 8:55 PM [...] Response Sophie : Oriented Best Motor Response Brawley : Obeys simple commands Sophie Coma Score : 15 ANGELICA SANDRA 01/15/2017 20:55 CDT GI Reassess GI Patient Stated Symptoms : None ANGELICA SANDRA 01/15/2017 20:55 CDT Source: [facility] POWERCHART Document Id: [id number] CDT!3 Angelica Sandra R.N. - 01/15/2017 7:51 [...] PNED ; Probability: 0 ; Diagnosis Code: [id number] Triage Chief Complaint Description : Pt presents [...] vehicle, Ambulatory Track : Medical Languages : Kyrgyz Vital Signs Assessed : Yes GCS Assessed [...] kg/m2 ANGELICA SANDRA - 01/15/2017 19:51 CDT Brawley Coma Eye Opening Response Brawley : Spontaneously Best Verbal Response Brawley : Oriented Best Motor Response Brawley : Obeys simple commands Sophie Coma Score [...] None ANGELICA SANDRA 01/15/2017 19:51 CDT Source: [employer] Document Id: [id number] CDT!117 documented in this encounter Miscellaneous Notes Miscellaneous - Conversion, Historical Provider Ser - 01/15/2017 11:10 PM CDT Coding Summary-Paper Based CODING DATE: 01/22/2017 FINAL [facility] STATUS: * Discharged to Home [...] DUONG Date Saved: 01/22/2017 10:08 am Source: [employer] Document Id: [id number] Miscellaneous - Angelica Sandra RMaribellN. - 01/15/2017 11:05 PM CDT Valuables/Belongings Valuables/Belongings Entered On: 01/15/2017 23:20 CDT Performed On: 01/15/2017 23:05 CDT by ANGELICA SANDRA Valuables/Belongings Belongings Sent Home With : all belongings sent home with patient ANGELICA SANDRA - 01/15/2017 23:20 CDT Source: [employer] Document Id: [id number] CDT!3 documented in this encounter Plan of [...]
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
== END 2022-06-28 07:20 | disposition home or self-care (01) ==
PROVIDERS: Visit Provider Obstetrics & Gynecology
DX: O13.9 Gestational [pregnancy-induced] hypertension without significant proteinuria, unspecified trimester (principal)
CPT/HCPCS: 76819

== ENCOUNTER 2022-07-05 16:35 | Outpatient (CLI) | payer MEDICAID, SELFPAY ==
--- OUTSIDE RECORDS SUMMARY | 2022-07-05 16:37 | XMS_ITS | Encounter Summary ---
:1990 Author Organization [facility] Address [address], [place] [address] Care Team Providers Name Role Phone Heydi Santana PA-C Primary Care Provider [phone] Encounter Details Date Type Department Care Team Description 02/20/2011 PN Conversion Only [facility] Jose Carlos Aguirre MD [facility] [address] [facility] 5320 [facility] bairon MCINTOSH [place], [place] [address] [place], [place] [phone] (Wo rk) Social History Tobacco Use Types Packs/Day Years Used Date Smoking Tobacco: Never Alcohol Use Standard Drinks/Week Comments No 0 (1 standard drink = 0.6 oz pure alcoho l) Sex Assigned at Date Recorded Not on file documented as of this encounter Plan of Treatment Upcoming Encounters Date Type Specialty Care Team Description 07/14/2022 Telemedicine Diabetes Program Yahaira Arrieta, RD N, LD, [facility] [address] [facility] N 474206 (Wo rk) documented as of this encounter Visit Diagnoses Not on filedocumented in this encounter Care Teams Head Of Loss Prevention Relationship Specialty Start Date End Date Heydi Santana PA-C PCP - General 11/14/10 [address] [place], [place] [phone] documented as of this encounter
--- OUTSIDE RECORDS SUMMARY | 2022-07-05 16:37 | XMS_ITS | Encounter Summary ---
:1990 Author Organization [employer] Address [address] [place] [address] Care Team Providers Name Role Phone Joel Anguiano MD Primary Care Provider Reason for Visit Reason Comments SKIN PROBLEM MOLE under rt arm Encounter Details Date Type Department Care Team Description 06/30/2010 Office Visit [place] [facility] Sheng Leblanc D ermatitis (Primary Dx); Medicine MD Gerardo [address] [place], [place] [address] [place], [place] [phone] Social History Tobacco Use Types Packs/Day Years [...] Diabetes Program Yahaira Arrieta, RD N, LD, [facility] [address] [facility] N [address] (Wo rk) documented as of this encounter Visit Diagnoses Diagnosis Dermatitis - Primary Contact dermatitis and other eczema, due to unspecified cause Acrochordon Unspecified hypertrophic and atrophic co ndition of skin documented in this encounter Care Teams Hotel Operation Manager Relationship Specialty Start Date End Date Joel Anguiano MD PCP - General 01/17/10 11/13/10 [address] [place] [address] documented as of this encounter
--- OUTSIDE RECORDS SUMMARY | 2022-07-05 16:37 | XMS_ITS | Encounter Summary ---
:1990 Author Organization [employer] Address [address], [place] [address] Care Team Providers Name Role Phone Heydi Santana Jaquelin RENNER Primary Care Provider [phone] Reason for Visit Reason Comments Test Request Encounter Details Date Type Department Care Team Description 03/12/2012 Office Visit Zack Quintanilla Misse d period (Primary Dx); Medicine , incidental [address] [facility] [address] [place] [address] [place] [phone] [address] Social History Tobacco Use Types Packs/Day [...] signed by Zack Yun MD at 03/13/12 0941 Author: Zack Yun MD Service: (none) Author Type: Physician Filed: 03/13/1226 Note Time: 03/12/12 140 Status: Signed Asbestos Worker: Zack Yun MD (Physician) NAME: DILLAN MATA MR#: [id number] CSN: [id number] AUTHENTICATING CLINICIAN: Zack Yun MD CONFIRM #: [id number] LOC: 3602 CLINIC PROGRESS NOTE DATE OF [...] return as needed. SJC:MEDPérez C: CONFIRM #: [id number] documented in this encounter Plan of Treatment Upcoming Encounters Date Type Specialty Care Team Description 07/14/2022 Telemedicine Diabetes Program Flaskerud, Yahaira M, RD N, LD, [facility] [address] [facility] Jose MCKEE N [address] (Wo rk) documented as of this encounter Visit Diagnoses Diagnosis Missed period - Primary Irregular menstrual cycle , incidental state, incidental documented in this encounter Care Teams Director Of Student Affairs Relationship Specialty Start Date End Date Heydi Santana PA-C PCP - General 11/14/10 [address] [place] [address] documented as of this encounter
--- OUTSIDE RECORDS SUMMARY | 2022-07-05 16:37 | XMS_ITS | Encounter Summary ---
:1990 Author Organization [employer] Address [address], [place] [address] Care Team Providers Name Role Phone Max, Heydi Hammer PA-C Primary Care Provider [phone] Reason for Visit Reason Comments APPOINTMENT REQUEST Referral for GDM Encounter Details Date Type Department Care Team Description 06/07/[address] [facility] 3800 Nurse, P3800 End APPOINTMENT REQUEST Endocrinology [address] (Referral for GDM) [address] [place] [place] [phone] Social History Tobacco Use Types Packs/Day Years [...] 11:58 AM CDT Faxed referral rec'd from [facility] for GDM, records sent to [employer] [facility] documented in this encounter Plan of Treatment Upcoming Encounters Date Type Specialty Care Team Description 07/14/2022 Telemedicine Diabetes Program Yahaira Arrieta, RD N, LD, [facility] [address] [facility] [address] Jose Cierra [address] (Wo rk) documented as of this encounter Visit Diagnoses Not on filedocumented in this encounter Care Teams Program Developer Relationship Specialty Start Date End Date Heydi Santana PA-C PCP - General 11/14/10 [address] [place] [address] documented as of this encounter
--- OUTSIDE RECORDS SUMMARY | 2022-07-05 16:37 | XMS_ITS | Encounter Summary ---
:1990 Author Organization [employer] Address [address] [place] [address] Care Team Providers Name Role Phone Joel Anguiano MD Primary Care Provider Reason for Visit Reason Comments CONTROL COUNSELING Encounter Details Date Type Department Care Team Description 09/27/2010 Office Visit [facility] Candy Perez control Practice AZURDO (Primary Dx) [address] [place] [address]. [address] [facility] DID[facility] [place], [place] [address] S [phone] [place] [address] Social History Tobacco Use Types Packs/Day Years Used Date Smoking Tobacco: Never Alcohol Use Standard Drinks/Week Comments No 0 (1 standard drink = 0.6 oz pure alcoho l) Sex Assigned at Date Recorded Not on file documented as of this encounter Last Filed Vital Signs Vital Sign Reading Time Taken Comments Blood Pressure 110/82 09/27/2010 9:16 AM COTTON PULLER Pulse 76 09/27/2010 9:16 AM COTTON PULLER Temperature - - Respiratory Rate - - Oxygen Saturation - - Inhaled Oxygen Concentration - - Weight 62.1 kg (137 lb) 09/27/2010 9:16 AM COTTON PULLER Height - - Body Mass Index - [...] change/worsen, or do not improve as expected. ON PULLER documented in this encounter Progress Notes Candy [...] Apply topically. Twice daily ??? Triamcinolone Acetonide, [id number], (TRIAMCINOLONE ACETONIDE EX) cream use as needed [...] together. Candy Perez PA-C 10:39 AM 09/27/2010 ON PULLER documented in this encounter Plan of Treatment Upcoming Encounters Date Type Specialty Care Team Description 07/14/2022 Telemedicine Diabetes Program Yahaira Arrieta, RD N, LD, [facility] [address] [facility] RYLE[address] Cierra [id number] (Wo rk) documented as of this encounter Procedures Procedure Name Priority Date/Time Associated Diagnosis Comme nts TEST Waiting 09/27/2010 9:39 AM control Result s for this (URINE) COTTON PULLER procedure are i n the results section. documented in this encounter Results TEST (URINE) (09/27/2010 9:39 AM COTTON PULLER) Component Value Ref Test Analysis Performed At [facility] Range Method Time Signature HCG, Urine Negative [facility] Negative = <25 mIU/ml If is suspected, suggest repeat in 48-72 hours or confirm results with a quantitative hCG test. Specimen Anatomical Collection Method Collection Time Receive d Time (Source) Location / / Volume Laterality Urine specimen 09/27/2010 9:39 AM 010 9:49 (specimen) COTTON PULLER AM COTTON PULLER Candy Perez PA-C LAB_1 Performing Organization Address City/State/ZIP Code Phon e Number [facility] [phone] [facility] [address] [address] documented in this encounter Visit Diagnoses Diagnosis control - Primary Unspecified contraceptive management documented in this encounter Care Teams Undergraduate Intern Relationship Specialty Start Date End Date Joel Anguiano MD PCP - General 01/17/10 11/13/10 [address] [place], [place] [address] documented as of this encounter
--- OUTSIDE RECORDS SUMMARY | 2022-07-05 16:37 | XMS_ITS | Encounter Summary ---
:1990 Author Organization [employer] Address [address] [place] [address] Care Team Providers Name Role Phone MaxHeydi christensen Jaquelin RENNER Primary Care Provider [phone] Reason for Visit Reason Comments Sore Throat HEADACHE Encounter Details Date Type Department Care Team Description 05/25/2011 Office Visit [place] [facility] Angelique Wilkinson MD Acute pharyngitis (Primary Dx); Practice [address] Reactive airway disease; [address] [place], [place] Sore throat [place], [place] [phone] Social History Tobacco Use Types Packs/Day Years [...] Diabetes Program Yahaira Arrieta, RD N, LD, [facility] 2[facility]ES [address] Jose [place] [address] (Wo rk) documented as of this encounter [...] THROAT CULTURE ONLY (05/25/2011 2:07 PM CDT) [facility] Tetra Discovery Method Time Signature Grp A Culture Negative NEG [facility] Final Specimen Anatomical Collection Method Collection Time Receive d Time (Source) Location / / Volume Laterality 05/25/2011 2:07 PM 1 2:24 CDT PM CDT Angelique Wilkinson MD LAB_1 Performing Organization Address City/[facility] Phon e Number [employer] [phone] [address] STREP GRP A, RAPID SCREEN (05/25/2011 2:07 PM CDT) [facility] Tetra Discovery Method Time Signature Grp A Rapid Negative NEG [facility] Screen Specimen Anatomical Collection Method Collection Time Receive d Time (Source) Location / / Volume Laterality 05/25/2011 2:07 PM 1 2:24 CDT PM CDT Angelique Wilkinson MD LAB_1 Performing Organization Address [facility] Phon e Number [employer] [phone] [address] documented in this encounter Visit Diagnoses Diagnosis Acute pharyngitis - Primary Reactive airway disease (HRC) Unspecified asthma Sore throat Acute pharyngitis documented in this encounter Care Teams Agency Sales Director Relationship Specialty Start Date End Date Heydi Santana PA-C PCP - General 11/14/10 [address] [place] [address] documented as of this encounter
--- OUTSIDE RECORDS SUMMARY | 2022-07-05 16:37 | XMS_ITS | Encounter Summary ---
:1990 Author Organization [employer] Address [address], [place] [address] Care Team Providers Name Role Phone Heydi Santana Jaquelin RENNER Primary Care Provider [phone] Encounter Details Date Type Department Care Team Description 03/26/2009 Office Visit [place] [facility] Alison Aguirre MD Medicine [address] [place], [place] [phone] (Wo rk) Social History Tobacco Use Types [...] 1344 Note Time: 03/26/09 0001 Status: Signed Snuff Grinder: Arturo Aguirre MD (Physician) Acute Clinic Visit [...] today on the Health Profile screen of [facility]. Chronic Medications: None. OBJECTIVE: Vital Signs: Vital Signs taken today [facility]. General Appearance: Well-appearing Eyes: External exam is [...] Diabetes Program Yahaira Arrieta, RD N, LD, [facility] [address] [place] N [address] (Wo rk) documented as of this encounter Visit Diagnoses Not on filedocumented in this encounter Care Teams Interior Designer Relationship Specialty Start Date End Date Heydi Santana PA-C PCP - General 11/14/10 [address] [place] [address] documented as of this encounter
--- OUTSIDE RECORDS SUMMARY | 2022-07-05 16:37 | XMS_ITS | Encounter Summary ---
:1990 Author Organization [employer] Address [address], [place] [address] Care Team Providers Name Role Phone Heydi Santana PA-C Primary Care Provider [phone] Reason for Visit Reason Comments Other Encounter Details Date Type Department Care Team Description 06/22/2022 Telephone [facility] [address] Celina Deleon PA-C Other Endocrinology [address] [place] [address] [place] [address] [phone] Social History Tobacco Use Types Packs/Day Years [...] Diabetes Program Yahaira Arrieta, RD N, LD, [facility] [address] [facility] [address] Jose N [address] (Wo rk) documented as of this encounter Visit Diagnoses Not on filedocumented in this encounter Care Teams Fall Internship Relationship Specialty Start Date End Date Heydi Santana PA-C PCP - General 11/14/10 [address] [place] [address] documented as of this encounter
--- OUTSIDE RECORDS SUMMARY | 2022-07-05 16:37 | XMS_ITS | Encounter Summary ---
:1990 Author Organization [employer] Address [address] [place] [address] Care Team Providers Name Role Phone MaxHeydi christensen Jaquelin RENNER Primary Care Provider [phone] Encounter Details Date Type Department Care Team Description 10/04/2004 PN Conversion Only PRIOR COPIAGUE CONVERSIO N Patito Jorge A, [address] SAIL MAKER, GAMING INVESTIGATOR [address] [place] [address] [address] [place], [place] [address] Social History Tobacco Use Types Packs/Day Years Used Date Smoking Tobacco: Never Assessed Sex Assigned at Date Recorded Not on file documented as of this encounter Plan of Treatment Upcoming Encounters Date Type Specialty Care Team Description 07/14/2022 Telemedicine Diabetes Program Yahaira Arrieta, RD N, LD, [facility] [address] [facility] N [address] (Wo rk) documented as of this encounter Procedures Procedure Name Priority Date/Time Associated Diagnosis Comme nts STREP GROUP A Routine 10/04/2004 3:11 PM Results for this ANTIGEN TEST STEVEDORE DOCK procedure are i n the results section. BETA STREP FOLLOWUP Routine 10/04/2004 3:11 PM Re sults for this STEVEDORE DOCK procedure are i n the results section. documented in this encounter Results Strep Group A Antigen Test (10/04/2004 3:11 PM STEVEDORE DOCK) Analysis Performed At [facility] logist Time Signature Strep Group A Negative Negative [facility] CONVERSION Antigen Test Comment: Culture to follow. Specimen (Source) Anatomical Collection Method Collection Time Re ceived Time Location / / Volume Laterality 10/04/2004 3:11 PM STEVEDORE DOCK Patito Jorge APRN, M[facility] LAB_1 Performing Organization Address [facility] Phon e Number [facility] CONVERSION Beta Strep Followup (10/04/2004 3:11 PM STEVEDORE DOCK) P athologist Signature Strep Screen SEE TEXT [facility] CONVERSION Comment: Patient: DILLAN MATA Rapid Strep Follow up Culture @ ? Collected: ??[id number] ??[id number] Source: Throat ?Processed: ??[id number] ??[id number] Final Report ------ ?[id number] ??[id number] No beta hemolytic Strep group A isolated . @ = Rapid F/U Cult Performed at ??[address] [place], [place] ?[address] Specimen (Source) Anatomical Collection Method Collection Time Re ceived Time Location / / Volume Laterality 10/04/2004 3:11 PM STEVEDORE DOCK Patito Jorge APRN, MIGUELANGEL LAB_1 Performing Organization Address [facility] Phon e Number [facility] CONVERSION documented in this encounter Visit Diagnoses Not on filedocumented in this encounter Care Teams Toe Former Stitchdowns Relationship Specialty Start Date End Date Heydi Santana PA-C PCP - General 11/14/10 [address] [facility] [place] [address] documented as of this encounter
--- OUTSIDE RECORDS SUMMARY | 2022-07-05 16:37 | XMS_ITS | Encounter Summary ---
:1990 Author Organization [facility] Address [address] [place] [address] Care Team Providers Name Role Phone Unassigned, Provider Primary Care Provider Unavailable Reason for Visit Reason Comments EXAM,ROUTINE With glasses, no problems, l azy right eye Encounter Details Date Type Department Care Team Description 09/06/2009 Office Visit [facility] ConsoerYunior, Examination of Eyes and Visi on (Primary Dx); [address] OD Refractive Amblyopia; [place], [place] [address] Monocular Exotropia; [phone] Myopia; Unspecified Ast igmatism Social History Tobacco Use Types Packs/Day Years Used Date Smoking Tobacco: Never Assessed Sex Assigned at Date Recorded Not on file documented as of this encounter Patient Instructions Patient InstructionsConsoerYunior - 09/06/2009 12:08 PM CST Thank you for choosing [facility] for your eye care needs. Many tests [...] the clinic in the future? Appointment Center: [phone] Eye Dept: [phone] Online Services: [email or web address] For after hours care, call the CareLine at [phone] or . We look forward to taking [...] lenses. Sometimes surgery is needed or desirable. ANIC RECOVERY documented in this encounter Progress Notes Yunior Galicia - 09/06/2009 12:08 PM CST HPI Chief Complaint Patient presents with ??? EXAM,ROUTINE With glasses, no problems, lazy right eye History Reviewed Assessment Myopia Astigmatism Amblyopia Exotropia Plan Spectacle Prescription given Return to clinic in 1 year(s) for REE. Arvin Galicia, OD ANIC RECOVERY documented in this encounter Plan of Treatment Upcoming Encounters Date Type Specialty Care Team Description 07/14/2022 Telemedicine Diabetes Program Yahaira Arrieta, NATANAEL N, LD, [facility] [address] [facility] N [address] (Wo rk) documented as of this encounter Visit Diagnoses Diagnosis Examination of eyes and vision - Primary Refractive amblyopia Monocular exotropia Myopia Astigmatism, unspecified documented in this encounter Care Teams Field Rep Relationship Specialty Start Date End Date Unassigned, Provider PCP - General 08/17/09 01/16/[address] [place] [address] documented as of this encounter
--- OUTSIDE RECORDS SUMMARY | 2022-07-05 16:37 | XMS_ITS | Encounter Summary ---
:1990 Author Organization [employer] Address [address] [place] [address] Care Team Providers Name Role Phone Joel Anguiano MD Primary Care Provider Reason for Visit Reason Comments CONGESTION, NASAL Sore Throat EARACHE Encounter Details Date Type Department Care Team Description 04/30/2010 Office Visit [facility] Apple Sore roat (Primary Dx); [place] URI (Upper Respiratory Infec tion) [address] [place], [place] [address] Social History Tobacco Use [...] Diabetes Program Yahaira Arrieta, RD N, LD, [facility] [address] [facility] [address] (Wo rk) documented as of this encounter [...] THROAT CULTURE ONLY (04/30/2010 12:27 PM CDT) [facility] [employer] Method Time Signature Grp A Culture Negative NEG [facility] Final Specimen Anatomical Collection Method Collection Time Receive d Time (Source) Location / / Volume Laterality 04/30/2010 12:27 04/30/2010 PM CDT 12:35 PM CDT Alycia Hernadez MD LAB_1 Performing Organization Address City/[facility] Code Phon e Number [facility] [phone] [address] STREP GRP A, RAPID SCREEN (04/30/2010 12:27 PM CDT) [facility] gist Method Time Signature Grp A Rapid Negative NEG [facility] Screen Specimen Anatomical Collection Method Collection Time Receive d Time (Source) Location / / Volume Laterality 04/30/2010 12:27 04/30/2010 PM CDT 12:35 PM CDT Alycia Hernadez MD LAB_1 Performing Organization Address [facility] Code Phon e Number [facility] [phone] [address] documented in this encounter Visit Diagnoses Diagnosis Sore throat - Primary Acute pharyngitis URI (upper respiratory infection) Acute upper respiratory infections of un specified site documented in this encounter Care Teams Light Adjuster Relationship Specialty Start Date End Date Joel Anguiano MD PCP - General 01/17/10 11/13/10 [address] [place] [address] documented as of this encounter
--- OUTSIDE RECORDS SUMMARY | 2022-07-05 16:37 | XMS_ITS | Clinical Summary ---
:1990 Author Organization [facility] [place] [address] Care Team Providers Name Role Phone Genny Lazo MD Primary Care Provider [phone] Allergies No known active allergies Medications [...] Father Premature CHD (under age 60) Father [place] Allergies Mother Hypertension Mother Allergies Sister 4 [...] uts 05m/ lb 9.2 oz) Delivery Location: [facility] Comments: Induced preeclampsia Current OB Episode Summary Episode Dates Estimated Date of Pregravid Weight TWG (As of ) Delivery 04/04/2022 - Present Unknown (07/05/2022) Last Filed Vital Signs Vital Sign Reading [...] Height 152.4 cm (5') 09/23/2015 2:13 PM CAN INSPECTOR Body Mass Index 31.05 09/23/2015 2:13 PM CAN INSPECTOR Plan of Treatment Upcoming Encounters Date Type [...] TASHI AKINS MA 2012-Present [address] [place] [address] [address] [facility] (Home) [place], [place] [phone] (Work) Lulu Mata Personal/Family Self 1990 61 [address] [facility] (Home) [place], [place] [phone] (Work) Advance Directives Latest Code Status on File Code Status Date Activated Date Inactivated Comments Full Code 12/05/2012 6:17 AM 12/07/2012 9:39 PM Full Code 12/05/2012 1:03 AM 12/05/2012 6:17 AM Full Code 12/03/2012 4:10 PM 12/05/2012 1:03 AM Full Code 11/30/2012 9:24 PM 12/01/2012 3:09 AM Full Code 11/30/2012 9:03 PM 11/30/2012 9:24 PM Care Teams Health And Nutrition Specialist Relationship Specialty Start Date End Date Genny Lazo MD PCP - General Family Practice 07/02/12 [address] [facility] [address] [facility] [place] [address]
--- OUTSIDE RECORDS SUMMARY | 2022-07-05 16:37 | XMS_ITS | Encounter Summary ---
:1990 Author Organization [facility] Address [address], [place] [address] Care Team Providers Name Role Phone Heydi Santana PA-C Primary Care Provider [phone] Encounter Details Date Type Department Care Team Description 06/22/2022 Telemedicine [facility] [address] [facility] diabetes Endocrinology MD Reji mellitus (GDM), [address] [facility] [address] [facility] ant epartum, [address] gestational diabetes [facility] thod of control [phone] unspecified (Primary [phone] (Wo rk) Dx) Social History Tobacco Use [...] female seen in consultation, referred by OBGYN. [facility] in [place], [place]. Planning to deliver at [facility]. Currently at 32 weeks [...] condition Both parents have hyperlipidemia. Works at [employer] to work until close to due date. 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 Normal sensation in all 4 [...] Patient will meet with Diabetes Education and Ticket Sales Supervisor after this visit today for instructions as [...] Diabetes Program Yahaira Arrieta, RD N, LD, [facility] [address] [facility] [address] [address] (Wo rk) documented as of this encounter Visit Diagnoses Diagnosis Gestational diabetes mellitus (GDM), ant epartum, gestational diabetes method of control unspecified - Primary documented in this encounter Care Teams Applied Exercise Physiologist Relationship Specialty Start Date End Date Heydi Santana PA-C PCP - General 11/14/10 [address] [place] [address] documented as of this encounter
--- OUTSIDE RECORDS SUMMARY | 2022-07-05 16:37 | XMS_ITS | Encounter Summary ---
:1990 Author Organization [facility] Address [address], [place] [address] Care Team Providers Name Role Phone Heydi Santana PA-C Primary Care Provider [phone] Reason for Referral Consult/Transfer Care (Routine) - New Request Specialty Diagnoses / Procedures Referred By Contact Refer red To Contact Diagnoses Gestational diabetes mellitus (GDM), antepartum, gestational diabetes method of control unspecified Celina Deleon PA-C [address] [place], [place] [address] Referral ID Status Reason Start Date Expiration Date Visits V isits Requested Authorized [id number] New Request 06/16/2022 09/15/2023 1 1 Scheduling Instructions Your provider has recommended an appoint ment with [facility] Diabetes Education. You may call [phone] to schedule yo ur appointment. We suggest you call your health insurance company about your cove rage and benefits for this appointment. Encounter Details Date Type Department Care Team Description 06/16/2022 Notes/Orders [facility] [address] Celina Deleon PA-C Gestational diabetes Endocrinology [address] mellitus (GDM), [address] antepartum, Blvd[address] [place], [place] [address] method of control [phone] unspecified (Primary [phone] Dx) Social History Tobacco Use Types Packs/Day Years Used Date Smoking Tobacco: Never Alcohol Use Standard Drinks/Week Comments No 0 (1 standard drink = 0.6 oz pure alcoho l) Sex Assigned at Date Recorded Not on file documented as of this encounter Progress Notes Harish Ambika Gilma - 06/16/2022 10:21 AM CDT Kuldeep Patrick, Please complete pended IDC referral for Gestational Diabetes education. Thank you, Ambika Moreira 10:21 AM 06/16/2022 documented in this encounter Plan of Treatment Upcoming Encounters Date Type Specialty Care Team Description 07/14/2022 Telemedicine Diabetes Program Yahaira Arrieta, RD N, LD, [facility] [address] [facility] [address] (Wo rk) Scheduled Referrals Name Type Priority Associated Diagnoses Order S chedule Diabetes Education Referral Routine Gestational diabetes O rdered: 06/16/2022 Visit mellitus (GDM), antepartum, gestational diabetes method of control unspecified documented as of this encounter Visit Diagnoses Diagnosis Gestational diabetes mellitus (GDM), ant epartum, gestational diabetes method of control unspecified - Primary documented in this encounter Care Teams Waiter Waitress Relationship Specialty Start Date End Date Heydi Santana PA-C PCP - General 11/14/10 [address] [place] [address] documented as of this encounter
--- OUTSIDE RECORDS SUMMARY | 2022-07-05 16:37 | XMS_ITS | Encounter Summary ---
:1990 Author Organization [facility] Address [address], [place] [address] Care Team Providers Name Role Phone eHydi Santana PA-C Primary Care Provider [phone] Encounter Details Date Type Department Care Team Description 11/02/2004 PN Conversion Only CONV [id number] Social History Tobacco Use Types Packs/Day Years Used Date Smoking Tobacco: Never Assessed Sex Assigned at Date Recorded Not on file documented as of this encounter Plan of Treatment Upcoming Encounters Date Type Specialty Care Team Description 07/14/2022 Telemedicine Diabetes Program Yahaira Arrieta, RD N, LD, [facility] [address] [facility] [facility] [place] [address] (Wo rk) documented as of this encounter Visit Diagnoses Not on filedocumented in this encounter Care Teams Tube Mounter Relationship Specialty Start Date End Date Heydi Santana PA-C PCP - General 11/14/10 [address] [place], [place] [address] documented as of this encounter
--- OUTSIDE RECORDS SUMMARY | 2022-07-05 16:37 | XMS_ITS | Encounter Summary ---
:1990 Author Organization [employer] Address [address] [address] Care Team Providers Name Role Phone Heydi Santana PA-C Primary Care Provider [phone] Reason for Visit Reason Comments Chest Pain Encounter Details Date Type Department Care Team Description 10/25/2011 Hospital Encounter Maria R King sinusitis, unspecified; Care MD Kim Unspecified asthma, with exacerbation [address] [facility] [address] [place], [place] [phone] [address] Social History Tobacco Use Types Packs/Day Years Used Date Smoking Tobacco: Never Alcohol Use Standard Drinks/Week Comments No 0 (1 standard drink = 0.6 oz pure alcoho l) Sex Assigned at Date Recorded Not on file documented as of this encounter Last Filed Vital Signs Vital Sign Reading Time Taken Comments Blood Pressure 123/78 10/25/2011 1:10 PM AUTOMOBILE PARTS ASSEMBLER Pulse 84 10/25/2011 1:10 PM AUTOMOBILE PARTS ASSEMBLER Temperature 37.2 ??C (99 ??F) 10/25/2011 1:10 PM AUTOMOBILE PARTS ASSEMBLER Respiratory Rate 16 10/25/2011 1:10 PM AUTOMOBILE PARTS ASSEMBLER Oxygen Saturation 99% 10/25/2011 1:10 PM AUTOMOBILE PARTS ASSEMBLER Inhaled Oxygen Concentration - - Weight - [...] Date:11/04/11, Frequency:2 TIMES DAILY *No Administrations Recorded MOBILE PARTS ASSEMBLER documented in this encounter Plan of Treatment Upcoming Encounters Date Type Specialty Care Team Description 07/14/2022 Telemedicine Diabetes Program Yahaira Arrieta, RD N, LD, [facility] [address] [facility] [address] [address] (Wo rk) documented as of this encounter Visit Diagnoses Diagnosis Acute sinusitis, unspecified Unspecified asthma, with exacerbation (H RC) Unspecified asthma, with exacerbation documented in this encounter Care Teams Automatic Brine Mixer Operator Relationship Specialty Start Date End Date Heydi Santana PA-C PCP - General 11/14/10 [address] [place], [place] [address] documented as of this encounter
--- OUTSIDE RECORDS SUMMARY | 2022-07-05 16:37 | XMS_ITS | Encounter Summary ---
:1990 Author Organization [facility] Address [address] [place] [address] Care Team Providers Name Role Phone Heydi Santana PA-C Primary Care Provider [phone] Encounter Details Date Type Department Care Team Description 10/04/2004 PN Conversion Only [place] [address] [place] [address] Social History Tobacco Use Types Packs/Day Years Used Date Smoking Tobacco: Never Assessed Sex Assigned at Date Recorded Not on file documented as of this encounter Plan of Treatment Upcoming Encounters Date Type Specialty Care Team Description 07/14/2022 Telemedicine Diabetes Program Yahaira Arrieta, RD N, LD, [facility] [address] [facility] N [address] (Wo rk) documented as of this encounter Visit Diagnoses Not on filedocumented in this encounter Care Teams Resource Specialist Teacher Relationship Specialty Start Date End Date Heydi Santana PA-C PCP - General 11/14/10 [address] [place], [place] [address] documented as of this encounter
--- OUTSIDE RECORDS SUMMARY | 2022-07-05 16:37 | XMS_ITS | Encounter Summary ---
:1990 Author Organization [facility] Address [address] [address] Care Team Providers Name Role Phone MaxHeydi christensen Jaquelin RENNER Primary Care Provider [phone] Encounter Details Date Type Department Care Team Description 10/04/2004 [facility] Patito Castillo APRN, [address] [place] [address] [address] [phone] [place], [place] [address] Social History Tobacco Use Types Packs/Day Years Used Date Smoking Tobacco: Never Assessed Sex Assigned at Date Recorded Not on file documented as of this encounter Progress Notes Patito Jorge - 10/04/2004 12:01 AM CST Progress Notes signed by Patito Jorge APRN, WEBMETHODS ARCHITECT at 10/04/04 1502 Author: HÉCTOR Martin Service: (none) Author Type: Nurse Practitioner Filed: 02/10/11 0201 Note Time: 10/04/04 0001 Status: Signed Oysterman: HÉCTOR Martin (Nurse Practitioner) Acute Clinic Visit [...] today on the Health Profile screen of [facility] Chronic Medications: None: OBJECTIVE: Vital Signs: [...] ~Shorthand Note completed on: 10/04/2004 2:17 PM ITY CONTROL MANAGER documented in this encounter Plan of Treatment Upcoming Encounters Date Type Specialty Care Team Description 07/14/2022 Telemedicine Diabetes Program Yahaira Arrieta, RD N, LD, [facility] [address] [facility] [address] [address] (Wo rk) documented as of this encounter Visit Diagnoses Not on filedocumented in this encounter Care Teams Monotype Keyboard Operator Relationship Specialty Start Date End Date Heydi Santana PA-C PCP - General 11/14/10 [address] [place], [place] [address] documented as of this encounter
--- OUTSIDE RECORDS SUMMARY | 2022-07-05 16:37 | XMS_ITS | Encounter Summary ---
:1990 Author Organization [facility] Address [address] [address] Care Team Providers Name Role Phone Heydi Santana PA-C Primary Care Provider [phone] Encounter Details Date Type Department Care Team Description 09/22/2003 PN Conversion Only [facility] Ayaan Osorio [place] [address] [facility] [address] [facility]. [facility] [address] [place] [address] [phone] Social History Tobacco Use Types Packs/Day Years Used Date Smoking Tobacco: Never Assessed Sex Assigned at Date Recorded Not on file documented as of this encounter Progress Notes Maryana Osorio - 09/22/2003 12:01 AM CST Progress Notes signed by Maryana Osorio MD at 09/23/03 0756 Author: Maryana Osorio MD Service: (none) Author Type: Physician Filed: 02/09/11 1721 Note Time: 09/22/03 0001 Status: Signed Lan Support Specialist: Maryana Osorio MD (Physician) NAME: DILLAN MATA MR: [id number] ACCT: [id number] VISIT: [id number] DICTATING CLINICIAN: MARYANA OSORIO MD JOB: [id number] CLINIC PROGRESS NOTE DATE OF VISIT: 09/22/2003 [...] needed and follow up p.r.n. TT: CT: [id number] C: 09/23/03 05:53 DOCUMENT: [id number] Patito Craig - 02/19/2002 12:01 AM CDT Progress Notes signed by Patito Jorge APRN, BARREL LEVELER at 03/11/02 1009 Author: HÉCTOR Martin Service: (none) Author Type: Nurse Practitioner Filed: 02/09/11 0554 Note Time: 02/19/02 0001 Status: Signed Lan Support Specialist: HÉCTOR Martin (Nurse Practitioner) IMPRESSION: URI. SUBJECTIVE: [...] symptomatic treatment. Follow up p.r.n. TT: CT: [id number] C: DOCUMENT: [id number] Maryana Osorio - 12/23/1998 12:01 AM CST Progress Notes signed by Maryana Osorio MD at 01/04/99 1608 Author: Maryana Osorio MD Service: (none) Author Type: Physician Filed: 02/08/11 0924 Note Time: 12/23/98 0001 Status: Signed Lan Support Specialist: Maryana Osorio MD (Physician) IMPRESSION: Upper respiratory [...] put on Trimox 250 chewables t.i.d. stg S AND MARKETING EXECUTIVE Maryana Osorio - 12/10/1997 12:01 AM CST Progress Notes signed by Maryana Osorio MD at 12/17/972053 Author: Maryana Osorio MD Service: (none) Author Type: Physician Filed: 02/08/116 Note Time: 12/10/97 0001 Status: Signed Lan Support Specialist: Maryana Osorio MD (Physician) IMPRESSION: Serous otitis [...] days and will followup here pemi carey S AND MARKETING EXECUTIVE Theodore Garcia MD - 03/02/1997 12:01 AM CDT Progress Notes signed by Theodore Garcia MD at 03/18/97 6214 Author: Theodore Garcia MD Service: (none) Author Type: Physician Filed: 02/07/11 9772 Note Time: 03/02/97 0001 Status: Signed Lan Support Specialist: Theodore Garcia MD (Physician) IMPRESSION: Right otitis [...] Discussed side effects. Recheck in two weeks. [facility] documented in this encounter Plan of Treatment Upcoming Encounters Date Type Specialty Care Team Description 07/14/2022 Telemedicine Diabetes Program Yahaira Arrieta, RD N, LD, [facility] [address] [facility] [place] [address] (Wo rk) documented as of this encounter Procedures Procedure Name Priority Date/Time Associated Diagnosis Comme nts XR FOOT RT 3+ VIEWS Routine 09/22/2003 3:12 PM Re sults for this SALES AND MARKETING EXECUTIVE procedure are i n the results section. STREP GROUP A Routine 02/19/2002 4:43 PM Results for this ANTIGEN TEST CDT procedure are i n the results section. BETA STREP FOLLOWUP Routine 02/19/2002 4:43 PM Re sults for this CDT procedure are i n the results section. documented in this encounter Results XR Foot Rt 3+ Views (09/22/2003 3:12 PM SALES AND MARKETING EXECUTIVE) Anatomical Region Laterality Modality Lower Extremity, Foot Other Specimen (Source) Anatomical Location Collection Method / Collectio n Time Received Time / Laterality Volume Narrative 09/22/2003 3:12 PM SALES AND MARKETING EXECUTIVE Findings: BN1 No radiographic evidence of bone or join t abnormality. Dictating MINDI CHERRY RADIOLOGIST Procedure Note Brenda Machado - 12/28/2016 Findings: BN1 No radiographic evidence of bone or join t abnormality. Dictating MINDI CHERRY RADIOLOGIST Maryana HINOJOSA GD Strep Group A Antigen Test (02/19/2002 4:43 PM CDT) Analysis Performed At [facility] Signature Strep Group A Negative Negative HP CONVERSION Antigen Test Comment: Culture to follow. Specimen (Source) Anatomical Collection Method Collection Time Re ceived Time Location / / Volume Laterality 02/19/2002 4:43 PM CDT Patito Jorge APRN, BARREL LEVELER LAB_1 Performing Organization Address City/State/ZIP Code Phon e Number HP CONVERSION Beta Strep Followup (02/19/2002 4:43 PM CDT) P athologist Signature Strep Screen SEE TEXT HP CONVERSION Comment: Patient: DILLAN MATA BRAD Rapid Strep Follow up Culture @ ? Collected: ?[id number] Source: Throat ?Processed: ?1643 ? 14 Final Report ------ ?[id number] ??0735 No beta hemolytic Strep group A isolated . @ = Rapid F/U Cult Performed at ??[address], [place], [place] ?[address] Specimen (Source) Anatomical Collection Method Collection Time Re ceived Time Location / / Volume Laterality 02/19/2002 4:43 PM CDT Patito Jorge APRN, BARREL LEVELER LAB_1 Performing Organization Address City/State/ZIP Code Phon e Number HP CONVERSION documented in this encounter Visit Diagnoses Not on filedocumented in this encounter Care Teams Tromper Relationship Specialty Start Date End Date Heydi Santana PA-C PCP - General 11/14/10 [address] [place] [address] documented as of this encounter
--- OUTSIDE RECORDS SUMMARY | 2022-07-05 16:37 | XMS_ITS | Clinical Summary ---
:1990 Author Organization [facility] Address [address], [place] [address] Care Team Providers Name Role Phone Heydi Santana PA-C Primary Care Provider Source Comments You are receiving this document [...] for each transition of care or referral. Caption Data Allergies No known active allergies Medications Medication [...] Description 06/30/2022 Telemedicine Diabetes Program Yahaira Arrieta, stational diabetes RDN, LD, [facility] mellitus (GDM ), antepartum, ges tational diabetes method of control unspeci fied (Primary Dx) 06/22/2022 Telemedicine Endocrinology Estrella Etienne, Gestat ional diabetes MD mellitus (GDM), antepartum, [...] 37.2 ??C (99 ??F) 10/25/2011 1:10 PM AIRCRAFT ENGINE MECHANIC SUPERVISOR Respiratory Rate 16 10/25/2011 1:10 PM AIRCRAFT ENGINE MECHANIC SUPERVISOR Oxygen Saturation 99% 10/25/2011 1:10 PM AIRCRAFT ENGINE MECHANIC SUPERVISOR Inhaled Oxygen Concentration - - Weight 68.5 kg (151 lb) 06/22/2022 5:04 PM patient repo rted CDT Height - - Body Mass Index - - Plan of Treatment Upcoming Encounters Date Type Specialty Care Team Description 07/14/2022 Telemedicine Diabetes Program Yahaira Arrieta, RD N, LD, [facility] [address] [place] [address] [address] (Wo rk) Health Maintenance Due Date Last [...] complete this topic Insurance Payer Benefit Plan / Subscriber ID Effective Dates Phone Addre ss Type Group [facility] [id number] 2021-Present [phone] CLAIMS Medicaid [address] [place] [address] Lulu Mata Personal/Family Self [address] (Home) [place], [place] [phone] (Work) Lulu Mata Personal/Family Self 1990 [address] (Home) [place] [phone] [place] (Work) [phone] Care Teams Gyn Relationship Specialty Start Date End Date Heydi Santana PA-C PCP - General 11/14/10 [address] [place], [place] [address]
--- OUTSIDE RECORDS SUMMARY | 2022-07-05 16:37 | XMS_ITS | Encounter Summary ---
:1990 Author Organization [facility] Address [address] [place] [address] Care Team Providers Name Role Phone Heydi Santana Jaquelin RENNER Primary Care Provider [phone] Encounter Details Date Type Department Care Team Description 03/26/2009 PN Conversion Only [place] [facility] [place] Arturo Aguirre MD [address] [place] [address] [address] [facility] [address] (Wo rk) Social History Tobacco Use Types Packs/Day Years Used Date Smoking Tobacco: Never Assessed Sex Assigned at Date Recorded Not on file documented as of this encounter Plan of Treatment Upcoming Encounters Date Type Specialty Care Team Description 07/14/2022 Telemedicine Diabetes Program Yahaira Arrieta, RD N, LD, [facility] [address] [facility] [address] [address] (Wo rk) documented as of this encounter [...] Arturo Aguirre MD LAB_1 Performing Organization Address [facility] Phon e Number HP CONVERSION Beta Strep Followup (03/26/2009 3:15 PM CDT) P athologist Signature Strep Screen SEE TEXT HP CONVERSION Comment: Patient: DILLAN MATA Rapid Strep Follow up Culture ? Collected: ??[id number] ??1515 Source: Throat ?Processed: ??[id number] ??1515 ? 1B Final Report ------ ?[id number] ??[id number] No beta hemolytic Strep group A isolated . Specimen (Source) Anatomical Collection Method Collection Time Re ceived Time Location / / Volume Laterality 03/26/2009 3:15 PM CDT Arturo Aguirre MD LAB_1 Performing Organization Address [facility] Phon e Number HP CONVERSION documented in this encounter Visit Diagnoses Not on filedocumented in this encounter Care Teams Fruit Distributor Relationship Specialty Start Date End Date Heydi Santana PA-C PCP - General 11/14/10 [address] [place] [address] documented as of this encounter
--- OUTSIDE RECORDS SUMMARY | 2022-07-05 16:37 | XMS_ITS | Encounter Summary ---
:1990 Author Organization [facility] Address [address] [address] Care Team Providers Name Role Phone Heydi Santana PA-C Primary Care Provider [phone] Encounter Details Date Type Department Care Team Description 11/13/2003 PN Conversion Only [facility] CONVERSION [address] [facility] [place] [address] Social History Tobacco Use Types Packs/Day Years Used Date Smoking Tobacco: Never Assessed Sex Assigned at Date Recorded Not on file documented as of this encounter Plan of Treatment Upcoming Encounters Date Type Specialty Care Team Description 07/14/2022 Telemedicine Diabetes Program Yahaira Arrieta, NATANAEL N, LD, [facility] [address] [facility] [address] [address] (Wo rk) documented as of this encounter Visit Diagnoses Not on filedocumented in this encounter Care Teams Chiller Hand Relationship Specialty Start Date End Date Heydi Santana PA-C PCP - General 11/14/10 [address] [place], [place] [address] documented as of this encounter
--- OUTSIDE RECORDS SUMMARY | 2022-07-05 16:37 | XMS_ITS | Encounter Summary ---
:1990 Author Organization [facility] Address [address] [place] [address] Care Team Providers Name Role Phone Heydi Santana Jaquelin RENNER Primary Care Provider [phone] Encounter Details Date Type Department Care Team Description 11/17/2003 [facility] Soumya Sorenson MD [place] [address] [facility] [address] [place] [address] [phone] Social History Tobacco Use Types Packs/Day Years Used Date Smoking Tobacco: Never Assessed Sex Assigned at Date Recorded Not on file documented as of this encounter Progress Notes Soumya Sorenson MD - 11/17/2003 12:01 AM CST Progress Notes signed by Soumya Sorenson MD at 06/01/048 Author: Soumya Sorenson MD Service: (none) Author Type: Physician Filed: 02/09/11 1824 Note Time: 11/17/03 0001 Status: Signed Nuclear Medicine Technician: Soumya Sorenson MD (Physician) NAME: DILLAN MATA MR: [id number] ACCT: [id number] VISIT: [id number] DICTATING CLINICIAN: SOUMYA SORENSON MD JOB: [id number] CLINIC PROGRESS NOTE DATE OF VISIT: 11/17/2003 [...] Well-developed, well-nourished female in no acute distress. KLM:[id number] C: 12/01/03 11:11 DOCUMENT: [id number] documented in this encounter Plan of Treatment Upcoming Encounters Date Type Specialty Care Team Description 07/14/2022 Telemedicine Diabetes Program Yahaira Arrieta, RD N, LD, [facility] [address] [place] [address] [facility] [place] N [address] (Wo rk) documented as of this encounter Visit Diagnoses Not on filedocumented in this encounter Care Teams Field Return Repairer Relationship Specialty Start Date End Date Heydi Santana PA-C PCP - General 11/14/10 [address] [place] [address] documented as of this encounter
--- OUTSIDE RECORDS SUMMARY | 2022-07-05 16:37 | XMS_ITS | Encounter Summary ---
:1990 Author Organization [facility] Address [address], [place] [address] Care Team Providers Name Role Phone Unassigned, Provider Primary Care Provider Unavailable Reason for Visit Reason Comments SORE THROAT, cough, chest cold Encounter Details Date Type Department Care Team Description 10/19/2009 Office Visit Urgent Care [facility] axillary Sinusitis (Primary Dx); [place] Acute Pharyngitis [address] [place], [place] [address] Social History Tobacco Use Types Packs/Day Years Used Date Smoking Tobacco: Never Assessed Sex Assigned at Date Recorded Not on file documented as of this encounter Last Filed Vital Signs Vital Sign Reading Time Taken Comments Blood Pressure 144/96 10/19/2009 7:00 PM COSMETOLOGIST APPRENTICE Pulse 78 10/19/2009 7:00 PM COSMETOLOGIST APPRENTICE Temperature 37.2 ??C (98.9 ??F) 10/19/2009 7:00 PM COSMETOLOGIST APPRENTICE Respiratory Rate 18 10/19/2009 7:00 PM COSMETOLOGIST APPRENTICE Oxygen Saturation - - Inhaled Oxygen Concentration - - Weight 64.6 kg (142 lb 6 oz) 10/19/2009 7:00 PM COSMETOLOGIST APPRENTICE Height - - Body Mass Index - - documented in this encounter Patient Instructions Patient InstructionsRyan Townsend - 10/19/2009 8:00 PM CST [facility] Sinusitis sheet given, emphasized saline rinses. Neti pot info and discussion given. ETOLOGIST APPRENTICE documented in this encounter Progress Notes Xochilt Enriquez RN - 10/21/2009 6:14 PM COSMETOLOGIST APPRENTICE Quick Note: Strep culture results noted: Negative Nita Enriquez RN ETOLOGIST APPRENTICE Ryan Townsend - 10/19/2009 7:28 PM CST [...] to improve as anticipated. Ryan Townsend MD ETOLOGIST APPRENTICE documented in this encounter Plan of Treatment Upcoming Encounters Date Type Specialty Care Team Description 07/14/2022 Telemedicine Diabetes Program Yahaira Arrieta, RD N, LD, [facility] [address] [place] [address] [facility] Jose CARREON [address] (Wo rk) documented as of this encounter Procedures Procedure Name Priority Date/Time Associated Diagnosis Comme nts STREP GRP A, RAPID Waiting 10/19/2009 7:18 PM Acute Pharyngiti s Results for this SCREEN COSMETOLOGIST APPRENTICE procedure are i n the results section. STREP GRP A, THROAT Routine 10/19/2009 7:18 PM Acute Pharyngit is Results for this CULTURE ONLY COSMETOLOGIST APPRENTICE procedure are i n the results section. documented in this encounter Results STREP GRP A, THROAT CULTURE ONLY (10/19/2009 7:18 PM COSMETOLOGIST APPRENTICE) [facility] gist Method Time Signature Grp A Culture Negative [facility] Final Specimen Anatomical Collection Method Collection Time Receive d Time (Source) Location / / Volume Laterality 10/19/2009 7:18 PM 200 9 7:22 COSMETOLOGIST APPRENTICE PM COSMETOLOGIST APPRENTICE Ryan Townsend MD LAB_1 Performing Organization Address [facility] Phon e Number [employer] [phone] [address] STREP GRP A, RAPID SCREEN (10/19/2009 7:18 PM COSMETOLOGIST APPRENTICE) [facility] gist Method Time Signature Grp A Rapid Negative [facility] Screen Specimen Anatomical Collection Method Collection Time Receive d Time (Source) Location / / Volume Laterality 10/19/2009 7:18 PM 200 9 7:22 COSMETOLOGIST APPRENTICE PM COSMETOLOGIST APPRENTICE Ryan Townsend MD LAB_1 Performing Organization Address [facility] Phon e Number [employer] [phone] [address] documented in this encounter Visit Diagnoses Diagnosis Acute maxillary sinusitis - Primary Acute pharyngitis documented in this encounter Care Teams Fitness/Wellness Director Relationship Specialty Start Date End Date Unassigned, Provider PCP - General 08/17/09 01/16/10 [address] [place] [address] documented as of this encounter
--- OUTSIDE RECORDS SUMMARY | 2022-07-05 16:37 | XMS_ITS | Encounter Summary ---
:1990 Author Organization [facility] Address [address] [place] [address] Care Team Providers Name Role Phone Max Heydi Jaquelin RENNER Primary Care Provider [phone] Reason for Visit Reason Comments Sore Throat Encounter Details Date Type Department Care Team Description 02/11/2011 Office Visit [facility] (Primary Dx) [address] [address] Social History Tobacco Use [...] culture obtained. ASSESSMENT: Pharyngitis. PLAN: Symptomatic care. Vktn-ooq-iabbzmt Tylenol or ibuprofen 4 times a day [...] N, LD, [facility] [address] [facility] [place] N [address] (Wo rk) documented as of this encounter [...] THROAT CULTURE ONLY (02/11/2011 3:33 PM CDT) [facility] gist Method Time Signature Grp A Culture Negative NEG [facility] Final Specimen Anatomical Collection Method Collection Time Receive d Time (Source) Location / / Volume Laterality 02/11/2011 3:33 PM 1 3:57 CDT PM CDT Belkis Sanchez APRN, DENTAL DETAIL REPRESENTATIVE LAB_1 Performing Organization Address [facility] Phon e Number [place] [phone] [facility] [employer] [address] [place] [address] STREP GRP A, RAPID SCREEN (02/11/2011 3:33 PM CDT) [facility] gist Method Time Signature Grp A Rapid Negative [facility] Screen Specimen Anatomical Collection Method Collection Time Receive d Time (Source) Location / / Volume Laterality 02/11/2011 3:33 PM 1 3:57 CDT PM CDT Belkis Sanchez APRN, DENTAL DETAIL REPRESENTATIVE LAB_1 Performing Organization Address [facility] Phon e Number [place] [phone] [facility] [address] [place] [address] documented in this encounter Visit Diagnoses Diagnosis Sore throat - Primary Acute pharyngitis documented in this encounter Care Teams Retail Associate Relationship Specialty Start Date End Date Heydi Santana PA-C PCP - General 11/14/10 [address] [place] [address] documented as of this encounter
--- OUTSIDE RECORDS SUMMARY | 2022-07-05 16:37 | XMS_ITS | Encounter Summary ---
:1990 Author Organization [facility] Address [address] [place] [address] Care Team Providers Name Role Phone Unassigned, Provider Primary Care Provider Unavailable Reason for Visit Reason Comments ASTHMA Encounter Details Date Type Department Care Team Description 11/18/2009 Office Visit [place] [facility] Miguelito Anguiano MD URI (Upper Medicine [address] Respiratory [address] Infection) (Primary [place], [place] [address] [place], [place] Dx) [phone] Social History Tobacco Use Types Packs/Day Years Used Date Smoking Tobacco: Never Alcohol Use Standard Drinks/Week Comments No 0 (1 standard drink = 0.6 oz pure alcoho l) Sex Assigned at Date Recorded Not on file documented as of this encounter Last Filed Vital Signs Vital Sign Reading Time Taken Comments Blood Pressure 120/70 11/18/2009 2:07 PM ELECTROMYOGRAPHIC TECHNICIAN Pulse 72 11/18/2009 2:07 PM ELECTROMYOGRAPHIC TECHNICIAN Temperature - - Respiratory Rate 18 11/18/2009 2:07 PM ELECTROMYOGRAPHIC TECHNICIAN Oxygen Saturation - - Inhaled Oxygen Concentration - - Weight 65.3 kg (144 lb) 11/18/2009 2:07 PM ELECTROMYOGRAPHIC TECHNICIAN Height - - Body Mass Index - [...] to clinic p.r.n. Joel Anguiano MD 11/18/2009 TROMYOGRAPHIC TECHNICIAN documented in this encounter Plan of Treatment Upcoming Encounters Date Type Specialty Care Team Description 07/14/2022 Telemedicine Diabetes Program Yahaira Arrieta, RD N, LD, [facility] [address] [facility] [place] N [address] (Wo rk) documented as of this encounter Visit Diagnoses Diagnosis URI (upper respiratory infection) - Prim prosper Acute upper respiratory infections of un specified site documented in this encounter Care Teams Resource Coordinator Relationship Specialty Start Date End Date Unassigned, Provider PCP - General 08/17/09 01/16/[address] [place] [address] documented as of this encounter
--- OUTSIDE RECORDS SUMMARY | 2022-07-05 16:38 | XMS_ITS | Clinical Summary ---
:1990 Author Organization [facility] Address [address] [place] [address] Care Team Providers Name Role Phone Ben Arce M.D. Primary Care Provider Source Comments Patient records contain information from all sites at [facility]. For routine questions regarding patient records, call [phone] during business hours, M-F 8:00 AM - 5:00 PM Central Time. Record requests for emergency care only can be directed to [phone] at any time.[facility] Allergies Active Allergy Reactions Severity Noted Date Comments [place] Pollen Itching, Wheezing 04/17/2022 Medications Medication Sig [...] COVID complete but needs b ooster/Flu declines Cardiology Consultants: Pap NIL w/ neg HPV 11/2021 Aneuploidy [...] told me she is transferr ing to [place] because it is closer. History Of Falling [...] and Delivery Rylie Mcdowell En counter For [place] Supervision Of Normal Unspe cified Trimester ([facility]) 04/18/2022 Routine Obstetrics and Rylie Mcdowell, 23 Weeks Gestation Gynecology MMaribellDMaribell ([facility]) (Primary Dx) 04/17/2022 Hospital Encounter Labor and Delivery Rylie Mcdowell, 23 Weeks Gestation M.D. (HCC) from Last 3 Months Immunizations Name Administration [...] do you attend buddhist or Never 2021 faith services? Do you [...] at Date Recorded Female 12/02/2021 5:19 PM COOK HELPER JUICE Last Filed Vital Signs Vital Sign Reading [...] this topic Medical Devices Implanted Type Area Hybrid Tester Device Shelf Model / Identifier Expiration Serial / Date Lot Gynecologic Gynecologic Left: Other Other Arm Procedures Procedure Name Priority Date/Time Associated Comments Diagnosis GLUCOSE POCT, B Routine 06/12/2022 10:50 Results for this AM CDT procedure are i n the results section. URINALYSIS WITH Timed 04/28/2022 9:09 AM Result s for this MICROSCOPIC CDT procedure are i n the results section. IFLU A, B, SARS Routine 04/28/2022 8:48 AM Result s for this COV-2, PCR, RAPID,V CDT procedur e are in the results section. from Last 3 Months Results Glucose, POCT (06/12/2022 10:50 AM CDT) P athologist Signature Glucose, POCT, 87 70 - 140 06/12/2022 NPRG B mg/dL 10:50 AM CDT Specimen Anatomical Collection Method Collection Time Receive d Time (Source) Location / / Volume Laterality Blood 06/12/2022 10:50 06/12/2022 AM CDT 10:57 AM CDT Generic [facility] LAB POCT ORDERABLES-MANUAL Performing Organization Address City/State/ZIP Code Phon e Number [facility]- [address] [place], [place] [address] [place] [address] [place] [address] (ABNORMAL) Urinalysis [...] 8.0 04/28/2022 11:36 AM CDT NPRG Specific [place] 1.015 1.001 - 1.035 04/28/2022 11:36 AM [...] Organization Address City/State/ZIP Code Phon e Number [facility]- [address] [place], [place] [address] [place] [address] [place] [address] [address] [facility] Influenza A/B, SARS CoV-2, PCR, Rapid, Varies (04/28/2022 8:48 AM CDT) [facility] Method Time Signature Influenza A, Negative Negative 04/28/2022 NPRG PCR, Rapid, V 9:26 AM CDT Influenza B, Negative Negative 04/28/2022 NPRG PCR, Rapid, V 9:26 AM CDT SARS CoV-2, Undetected Undetected 04/28/2022 NPRG PCR, Rapid, V 9:26 AM CDT Comment: ----ADDITIONAL INFORMATION---- This RT-PCR test was performed using the Carissa SARS-CoV-2 and Influenza A/B Reagent assay from [employer], which has received Emergency Use Authori zation(EUA) by the U.S. Food and Drug Administration . Fact sheets for this Emergency Use Autho rization (EUA) assay can be found at the following link s: For Healthcare Providers: https://www.fda.gov/media/887497/downloa d For Patients: https://www.fda.gov/media/651211/downloa d Infl A/B, SARS CoV-2, PCR, Source Swab, Nasopharynx 04/28/2022 9:02 AM CDT NPRG Specimen Anatomical Collection Method Collection Time Receive d Time (Source) Location / / Volume Laterality Varies 04/28/2022 8:48 AM 9:02 CDT AM CDT Rylie Mcdowell M.D. LAB MICROBIOLOGY - GENERAL O RDERABLES Performing Organization Address City/State/ZIP Code Phon e Number [facility]- [address] [place] [address] [place] [facility] [place] [address] from Last 3 Months Insurance Payer Benefit Plan / Subscriber ID Effective Phone Address T ype Group Dates EMPLOYERS EMPLOYERS [id number] 2019-Pres [phone] [address] n[address] INSURANCE INSURANCE ent [phone] [place] [address] UCARE UCARE [id number] 2022-Pres [phone] [address] HMO ent [address] [place] [address] Lulu Mata Workers Comp Self [address] (Home) [place] [address] Lulu Mata Third Libertarian Self [address] (Home) [place] [address] Care Teams Security Dispatcher Relationship Specialty Start Date End Date Ben Arce M.D. PCP - General Family Medicine 01/13/[address] [place] [phone]
--- OUTSIDE RECORDS SUMMARY | 2022-07-05 16:38 | XMS_ITS | Encounter Summary ---
:1990 Author Organization [facility] Address [address] [place] [address] Care Team Providers Name Role Phone Ben Arce M.D. Primary Care Provider Reason for Visit Reason Comments Vomiting Pt presents with nausea and vomiting that began last evening at 1700. Has persisted all night. Pt is 6 weeks . Encounter Details Date Type Department Care Team Description 12/09/2021 Emergency [place] [facility] Valerie Malone, Nause a And Vomiting (Primary Dx); Department M.D. Less Than 8 Weeks [address]estation [address] [place] [phone] Social History Tobacco Use Types Packs/Day Years [...] you attend oriental orthodox or Never 2021 congregational services? Do you [...] at Date Recorded Female 12/02/2021 5:19 PM ENGINE MANAGER documented as of this encounter Last Filed Vital Signs Vital Sign Reading Time Taken Comments Blood Pressure 126/87 12/09/2021 9:45 AM ENGINE MANAGER Pulse 95 12/09/2021 10:00 AM ENGINE MANAGER Temperature 37.2 ??C (99 ??F) 12/09/2021 10:00 AM ENGINE MANAGER Respiratory Rate 14 12/09/2021 8:29 AM ENGINE MANAGER Oxygen Saturation 99% 12/09/2021 10:00 AM ENGINE MANAGER Inhaled Oxygen Concentration - - Weight 68.3 kg (150 lb 9.2 oz) 12/09/2021 8:31 AM ENGINE MANAGER Height 155 cm (5' 1.02) 12/09/2021 8:31 AM ENGINE MANAGER Body Mass Index 28.43 12/09/2021 8:31 AM ENGINE MANAGER documented in this encounter Discharge Instructions Discharge InstructionsValerie Malone M.D. - 12/09/2021 9:29 AM CST If you are unable to keep yourself well hydrated at home, please feel free to return. NE MANAGER AttachmentsThe following attachments cannot be sent through Care Everywhere. Morning Sickness (Tamazight)documented in this encounter Medications at Time [...] normal. ASSESSMENT/PLAN IMPRESSION AND PLAN Vomiting with mpte-on-ltymtyqv dehydration during . I gave normal saline 1 L IV, jikgbptkuc179 mg IV, Zofran 4 mg IV. She [...] 8 Weeks Gestation Valerie Malone M.D. 12/09/[address] NE MANAGER documented in this encounter Plan of [...] 1,000 mL New Bag 12/09/2021 8:48 AM ENGINE MANAGER 1,000 mL 1000 mL/hr 1,000 mL, intravenous, at 1,000 mL/hr, Administer over 1 Hours, Once, On Sun12/09/21 at 0836, For 1 dose ondansetron (PF) injection 4 mg (ZOFRAN) Given 12/09/2021 9:31 AM ENGINE MANAGER 4 mg 4 mg, intravenous, Once, On Sun12/09/21 at 0921, For 1 dose pyridoxine (vitamin B6) injection 100 mg Given 12/09/2021 9:00 AM ENGINE MANAGER 100 mg 100 mg, intravenous, Once, On Sun12/09/21 at 0836, For 1 dose sodium chloride 0.9 % injection 10 mL Given 12/09/2021 8:45 AM ENGINE MANAGER 10 mL 10 mL, intravenous, As needed, [...] Recently Administered Medications Times are shown in ENGINE MANAGER. Scheduled Medication Order 12/07/2021 12/08/2021 12/09/2021 NaCl [...] injection documented in this encounter Care Teams Brass Polisher Relationship Specialty Start Date End Date Ben Arce M.D. PCP - General Family Medicine 01/13/[address] [place] [phone] documented as of this encounter
--- OUTSIDE RECORDS SUMMARY | 2022-07-05 16:38 | XMS_ITS | Encounter Summary ---
:1990 Author Organization [facility] Address [address] [place] [address] Care Team Providers Name Role Phone Ben Arce M.D. Primary Care Provider Encounter Details Date Type Department Care Team Description 12/20/2021 Hospital Encounter Department of Cheikh Gautam Laboratory Medicine Minoo Garcia Supervis ion Of Other in [facility] Unspecified [address] [place] [address] Social History Tobacco Use Types Packs/Day Years [...] do you attend denominational or Never 2021 baptist services? Do you [...] at Date Recorded Female 12/02/2021 5:19 PM DRAMATIC AGENT documented as of this encounter Medications at [...] Encounter For Results for this , S DRAMATIC AGENT Supervision Of Other procedu re are in Normal the results Unspecified section. Trimester HIV-1/-2 AG AND AB Routine 12/20/2021 11:34 AM Encounter For R esults for this SCRN, DRAMATIC AGENT Supervision Of Other proce dure are in PLASMA Normal the results Unspecified section. Trimester SYPHILIS TOTAL AB Routine 12/20/2021 11:34 AM Encounter For Re sults for this W/ REFLEX S DRAMATIC AGENT Supervision Of Other procedu re are in Normal the results Unspecified section. Trimester HBS ANTIGEN Routine 12/20/2021 11:34 AM Encounter For Results for this , S DRAMATIC AGENT Supervision Of Other procedu re are in Normal the results Unspecified section. Trimester ABORH, RBC Routine 12/20/2021 11:34 AM Encounter For Results for this DRAMATIC AGENT Supervision Of Other procedu re are in Normal the results Unspecified section. Trimester RUBELLA ANTIBODIES, Routine 12/20/2021 11:34 AM Encounter For Results for this IGG DRAMATIC AGENT Supervision Of Other procedu re are in Normal the results Unspecified section. Trimester CBC WITHOUT Routine 12/20/2021 11:34 AM Encounter For Results for this DIFFERENTIAL, B DRAMATIC AGENT Supervision Of Other proc edure are in Normal the results Unspecified section. Trimester ANTIBODY SCREEN, B Routine 12/20/2021 11:34 AM Encounter For R esults for this DRAMATIC AGENT Supervision Of Other procedu re are in Normal the results Unspecified section. Trimester documented in this encounter Results Hepatitis C Virus Antibody Screen (12/20/2021 11:34 AM DRAMATIC AGENT) P athologist Signature HCV Ab Scrn Negative Negative 12/21/2021 [facility] , S 8:10 AM DRAMATIC AGENT Comment: Zbbjfm-dd-jxqpih ratio is <1.00 . Specimen Anatomical Collection Method Collection Time Receive d Time (Source) Location / / Volume Laterality Blood (Blood, 12/20/2021 11:34 12/21/2021 6:40 Venous) AM DRAMATIC AGENT AM DRAMATIC AGENT Cheikh Gautam M.D. LAB MICROBIOLOGY - BLOOD ORD ERABLES Performing Organization Address City/[facility]/ZIP Code Phon e Number [facility] [address] [place] [address] [place] [address] [place] [address] Laboratory Medicine and Pathology [address] [place] Syphilis Total Ab w/ Reflex, Serum (12/20/2021 11:34 AM DRAMATIC AGENT) Patholo gist Method Time Signature Syphilis Nonreactive Nonreactive 12/21/2021 [facility] Total Ab w/ 11:40 AM DRAMATIC AGENT Reflex Comment: No serologic evidence of infection with T. pallidum (syphilis). ??Repeat testing may be cons idered in patients with suspected acute or primary syphilis in 2-4 weeks. For additional information on interpreta tion of the syphilis reverse algorithm and resul ts, see: [email or web address] df Specimen Anatomical Collection Method Collection Time Receive d Time (Source) Location / / Volume Laterality Blood (Blood, 12/20/2021 11:34 12/20/2021 6:27 Venous) AM DRAMATIC AGENT PM DRAMATIC AGENT Cheikh Gautam M.D. LAB BLOOD ADD-ON Performing Organization Address City/[facility] Phon e Number [phone] [place] [address] System [address] Rubella Antibodies, IgG (12/20/2021 11:34 AM DRAMATIC AGENT) P athologist Signature Rubella Ab, Positive 12/21/2021 [facility] IgG, S 11:40 AM DRAMATIC AGENT Comment: Results suggest response to immunization or prior exposure to the virus. ----REFERENCE VALUE---- Vaccinated: Positive (>=1.0 AI) Unvaccinated: Negative (<=0.7 AI) Rubella IgG Antibody Index 2.6 12/21/2021 11 :40 AM DRAMATIC AGENT [facility] Specimen Anatomical Collection Method Collection Time Receive d Time (Source) Location / / Volume Laterality Blood (Blood, 12/20/2021 11:34 12/20/2021 6:27 Venous) AM DRAMATIC AGENT PM DRAMATIC AGENT Cheikh Gautam M.D. LAB MICROBIOLOGY - BLOOD ORD ERABLES Performing Organization Address City/State/ZIP Code Phon e Number [facility]- [address] [place] [address] [phone] [place] [address] HIV-1/-2 Ag and Ab Scrn, Plasma (12/20/2021 11:34 AM DRAMATIC AGENT) P athologist Signature HIV Ag/Ab Negative Negative 12/21/2021 [facility] Scrn, 11:40 AM DRAMATIC AGENT P Comment: Negative result does not rule out HIV in fection. If exposure to HIV infection occurred <14 d ays ago, contact the laboratory to request additi on of HIV-1 RNA detection / quantification test. HIV-1 p24 Ag Scrn, P Negative Negative 12/21/2021 11:40 AM DRAMATIC AGENT [facility] Comment: Negative result does not rule out HIV in fection. If exposure to HIV infection occurred <14 d ays ago, contact the laboratory to request additi on of HIV-1 RNA detection / quantification test. HIV-1 Ab Scrn, P Negative Negative 12/21/2021 11: 40 AM DRAMATIC AGENT [facility] Comment: Negative result does not rule out HIV in fection. If exposure to HIV infection occurred <14 d ays ago, contact the laboratory to request additi on of HIV-1 RNA detection / quantification test. HIV-2 Ab Scrn, P Negative Negative 12/21/2021 11: 40 AM DRAMATIC AGENT [facility] Comment: Negative result does not rule out HIV in fection. If exposure to HIV infection occurred <14 d ays ago, contact the laboratory to request additi on of HIV-1 RNA detection / quantification test. Specimen Anatomical Collection Method Collection Time Receive d Time (Source) Location / / Volume Laterality Blood (Blood, 12/20/2021 11:34 12/20/2021 6:27 Venous) AM DRAMATIC AGENT PM DRAMATIC AGENT Cheikh Gautam M.D. LAB MICROBIOLOGY - BLOOD ORD ERABLES Performing Organization Address City/State/ZIP Code Phon e Number [facility]- [address] [place] [address] [phone] [place] [address] System [address] HBs Antigen , Serum (12/20/2021 11:34 AM DRAMATIC AGENT) [facility] Method Time Signature HBs Antigen Non reactive Non reactive 12/20/2021 [facility] , S 4:50 PM DRAMATIC AGENT Specimen Anatomical Collection Method Collection Time Receive d Time (Source) Location / / Volume Laterality Blood (Blood, 12/20/2021 11:34 12/20/2021 3:49 Venous) AM DRAMATIC AGENT PM DRAMATIC AGENT Cheikh Gautam M.D. LAB MICROBIOLOGY - BLOOD ORD ERABLES Performing Organization Address City/State/ZIP Code Phon e Number [facility]- [address] [place] [address] [facility] [place] [address] [facility] [address] (ABNORMAL) CBC without Differential (12/20/2021 11:34 AM DRAMATIC AGENT) [facility] Method Time Signature Hemoglobin 14.1 11.6 - 12/20/2021 [facility] 15.0 g/dL 11:44 AM DRAMATIC AGENT Hematocrit 41.0 35.5 - 12/20/2021 [facility] 44.9 % 11:44 AM DRAMATIC AGENT Erythrocytes 4.91 3.92 - 12/20/2021 [facility] 5.13 11:44 AM DRAMATIC AGENT x10(12)/L MCV 83.5 78.2 - 12/20/2021 [facility] 97.9 fL 11:44 AM DRAMATIC AGENT RBC Distrib Width 11.7 (L) 12.2 - 12/20/2021 [facility] 16.1 % 11:44 AM DRAMATIC AGENT Platelet Count 360 157 - 371 12/20/2021 [facility] x10(9)/L 11:44 AM DRAMATIC AGENT Leukocytes 11.1 (H) 3.4 - 9.6 12/20/2021 [facility] x10(9)/L 11:44 AM DRAMATIC AGENT Specimen Anatomical Collection Method Collection Time Receive d Time (Source) Location / / Volume Laterality Blood (Blood, 12/20/2021 11:34 12/20/2021 Venous) AM DRAMATIC AGENT 11:40 AM DRAMATIC AGENT Cheikh M Dain M.D. LAB BLOOD ADD-ON Performing Organization Address City/[facility]/ZIP Code Phon e Number [facility]- [address] [place] [address] [facility] [place] [address] System in [place] [address] Antibody Screen, RBC (with reflex Antibody ID) (12/20/2021 11:34 AM DRAMATIC AGENT) P athologist Signature Antibody Screen NEG 12/20/2021 [facility] 5:16 PM DRAMATIC AGENT Specimen Anatomical Collection Method Collection Time Receive d Time (Source) Location / / Volume Laterality Blood (Blood, 12/20/2021 11:34 12/20/2021 3:49 Venous) AM DRAMATIC AGENT PM DRAMATIC AGENT Cheikh Gautam M.D. LAB BLOOD BANK TEST ORDERABL ES Performing Organization Address City/[facility]/ZIP [facility] Phon e Number [facility]- [address] [place] [address] [facility] [place], [place] [id number] [place] [address] [address] [facility] ABORh, RBC (12/20/2021 11:34 AM DRAMATIC AGENT) P athologist Signature ABO Group O 12/20/2021 5:16 AUST PM DRAMATIC AGENT Rh Type POS 12/20/2021 5:16 AUST PM DRAMATIC AGENT Specimen Anatomical Collection Method Collection Time Receive d Time (Source) Location / / Volume Laterality Blood (Blood, 12/20/2021 11:34 12/20/2021 3:51 Venous) AM DRAMATIC AGENT PM DRAMATIC AGENT Cheikh Gautam M.D. LAB BLOOD BANK TEST ORDERABL ES Performing Organization Address City/[facility]/ZIP [facility] Phon e Number [facility]- [address] [place] [address] [facility] [place], [place] [id number] [place] [address] [address] [facility] documented in this encounter Visit Diagnoses Diagnosis Encounter For Supervision Of Other Stella l Unspecified Trimester (HCC) documented in this encounter Additional Health Concerns Assessment Noted Time PHQ-9 Depression Total Score: 4 12/20/2021 10:52 AM CS T documented as of this encounter Care Teams Steam Service Inspector Relationship Specialty Start Date End Date Ben Arce M.D. PCP - General Family Medicine 01/13/[address] [place] [phone] documented as of this encounter
--- OUTSIDE RECORDS SUMMARY | 2022-07-05 16:38 | XMS_ITS | Encounter Summary ---
:1990 Author Organization [facility] Address [address] [place] [address] Care Team Providers Name Role Phone Ben Arce M.D. Primary Care Provider Reason for Referral Outpatient (Routine) - Authorized Specialty Diagnoses / Procedures Referred By Contact Refer red To Contact Diagnoses Pain Back Pain Neck Ben Arce M.D. External, Referring [address] [place] [address] Referral ID Status Reason Start Expiration Visits Visits Date Date Requested Authorized [id number] Authorized Patient 03/01/2022 03/01/2023 1 1 Preference Reason for Visit Reason Comments Outside Order Insurance Referral Encounter Details Date Type Department Care Team Description 03/01/2022 Clinical Communication Department of Ben Arce, [facility] Order Family Medicine in [place] (Insurance Referral) [place] [address] [place] [address] [facility] [phone] [phone] Social History Tobacco Use Types Packs/Day Years [...] do you attend worship or Never 2021 amish services? Do you belong to any clubs or No 11/20/2021 organizations such as worship groups, unions, fraMiss[place] ALF Investor or athletic groups, or school groups? 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 Also faxed [facility] restricted forms for OB care [facility]. Thank you, Jossie Referrals 03/02/22 Lore called from [facility] [phone]. This referral has been processed. 03/03/22sla. Telephone Encounter - Ben Arce M.D. - 03/01/2022 3:07 PM CDT Order signed. Telephone Encounter - Jossie Ramos - 03/01/2022 2:[address] Arce, ORDER/LAB/REFERRAL REQUEST: Name of test/referral/order requested: [facility] Dr. Med [place] i [id number] Reason for request: Back and neck pain Date needed: 02/26/22 Order pended to this encounter, once signed we can submit the Restricted [facility] referral for insurance. Thank you, Jossie Referrals 03/01/22 documented in this encounter Plan of Treatment Not on filedocumented as of this encounter Visit Diagnoses Diagnosis Pain Back - Primary Pain Neck documented in this encounter Additional Health Concerns Assessment Noted Time PHQ-9 Depression Total Score: 4 12/20/2021 10:52 AM CS T documented as of this encounter Care Teams Sales And Marketing Representative Relationship Specialty Start Date End Date Ben Arce M.D. PCP - General Family Medicine 01/13/[address] [place] [address] documented as of this encounter
--- OUTSIDE RECORDS SUMMARY | 2022-07-05 16:38 | XMS_ITS | Encounter Summary ---
:1990 Author Organization [facility] Address [address] [place] [address] Care Team Providers Name Role Phone Ben Arce M.D. Primary Care Provider Reason for Visit Reason Comments Hand Injury Medical Information Encounter Details Date Type Department Care Team Description 02/11/2022 Nurse Triage Department of [facility] Rylie Hightower Hand Injury; Medical Medicine in [place], [place] [address] [facility] [address] [place] [address] [phone] Social History Tobacco Use Types Packs/Day Years [...] do you attend scientology or Never 2021 catholic services? Do you [...] at Date Recorded Female 12/02/2021 5:19 PM OVER SHORT AND DAMAGE CLERK documented as of this encounter Miscellaneous Notes [...] or deformed) Protocols used: HAND AND WRIST [id number] documented in this encounter Plan of Treatment Not on filedocumented as of this encounter Visit Diagnoses Not on filedocumented in this encounter Additional Health Concerns Assessment Noted Time PHQ-9 Depression Total Score: 4 12/20/2021 10:52 AM CS T documented as of this encounter Care Teams College Dean Relationship Specialty Start Date End Date Ben Arce M.D. PCP - General Family Medicine 01/13/[address] [place] [address] documented as of this encounter
--- OUTSIDE RECORDS SUMMARY | 2022-07-05 16:38 | XMS_ITS | Encounter Summary ---
:1990 Author Organization [facility] Address [address] [place] [address] Care Team Providers Name Role Phone Ben Arce M.D. Primary Care Provider Encounter Details Date Type Department Care Team Description 12/20/2021 Hospital Encounter Department of Cheikh Gautam Laboratory Medicine Minoo Garcia Supervis ion Of Other in [facility] Unspecified [address] [place] [address] Social History Tobacco Use Types Packs/Day Years [...] do you attend episcopalian or Never 2021 presybeterian services? Do you [...] Date Recorded Female 12/02/2021 5:19 PM ADMINISTRATIVE RESIDENT documented as of this encounter Medications at [...] Encounter For Resul ts for this AM ADMINISTRATIVE RESIDENT Supervision Of Other procedu re are in Normal the results Unspecified section. Trimester URINALYSIS WITH Routine 12/20/2021 11:26 Encounter For Results for this MICROSCOPIC IF AM ADMINISTRATIVE RESIDENT Supervision Of Other proce dure are in INDICATED, U Normal the results Unspecified section. Trimester BACTERIAL CULTURE, Routine 12/20/2021 11:26 Encounter For Resu lts for this AEROBIC + SUSC, AM ADMINISTRATIVE RESIDENT Supervision Of Other proc edure are in URINE Normal the results Unspecified section. Trimester documented in this encounter Results Hemoglobin A1c (12/20/2021 11:34 AM ADMINISTRATIVE RESIDENT) P athologist Signature Hemoglobin A1c, 5.2 4.2 - 5.6 12/20/2021 [facility] B % 12:27 PM ADMINISTRATIVE RESIDENT Specimen Anatomical Collection Method Collection Time Receive d Time (Source) Location / / Volume Laterality Blood (Blood, 12/20/2021 11:34 12/20/2021 Venous) AM ADMINISTRATIVE RESIDENT 11:40 AM ADMINISTRATIVE RESIDENT Cheikh Gautam M.D. LAB BLOOD ADD-ON Performing Organization Address City/State/ZIP Code Phon e Number [facility]- [address] [place] [address] [place] [address] System in [place] [address] Bacterial Culture, Aerobic + Susc, Urine (12/20/2021 11:26 AM ADMINISTRATIVE RESIDENT) Patholo gist Method Time Signature Urine Culture No growth 12/21/2021 [facility] after 1 day 8:40 AM ADMINISTRATIVE RESIDENT of incubation. Specimen Anatomical Collection Method Collection Time Receive d Time (Source) Location / / Volume Laterality Urine (Urine, 12/20/2021 11:26 12/20/2021 2:19 Midstream) AM ADMINISTRATIVE RESIDENT PM ADMINISTRATIVE RESIDENT Comment: Specimen Source Site: Urine Cheikh Gauatm M.D. LAB MICROBIOLOGY - GENERAL O RDERABLES Performing Organization Address City/State/ZIP Code Phon e Number [facility]- [address] [place] [address] [place] [address] System in [place] [address] [place] [address] Urinalysis with Microscopic if Indicated (12/20/2021 11:26 AM ADMINISTRATIVE RESIDENT) P athologist Signature Source Urine, 12/20/2021 [facility] Urine, Clean 12:12 PM ADMINISTRATIVE RESIDENT Catch Clarity Clear Clear 12/20/2021 [facility] 12:12 PM ADMINISTRATIVE RESIDENT Color Yellow 12/20/2021 [facility] 12:12 PM ADMINISTRATIVE RESIDENT Comment: ----REFERENCE VALUE---- Colorless Yellow Ronda Blood Negative Negative 12/20/2021 12:12 PM ADMINISTRATIVE RESIDENT [facility] Nitrite Negative Negative 12/20/2021 12:12 PM ADMINISTRATIVE RESIDENT [facility] Leukocyte Esterase Negative Negative 12/20/2021 12:[address] [facility] Protein Negative mg/dL 12/20/2021 12:12 PM ADMINISTRATIVE RESIDENT [facility] Comment: ----REFERENCE VALUE---- Negative Trace Glucose Negative Negative mg/dL 12/20/2021 12:12 PM ADMINISTRATIVE RESIDENT O FRANSICO Ketone Negative Negative mg/dL 12/20/2021 12:12 PM ADMINISTRATIVE RESIDENT O FRANSICO Bilirubin Negative Negative 12/20/2021 12:12 PM ADMINISTRATIVE RESIDENT [facility] pH 6.0 5.0 - 8.0 12/20/2021 12:12 PM ADMINISTRATIVE RESIDENT [facility] Specific [place] 1.005 1.001 - 1.035 12/20/2021 12:12 PM ADMINISTRATIVE RESIDENT [facility] Urobilinogen 0.2 0.2 - 1.0 mg/dL 12/20/2021 12:[address] [facility] Specimen Anatomical Collection Method Collection Time Receive d Time (Source) Location / / Volume Laterality Urine (Urine, 12/20/2021 11:26 12/20/2021 Clean Catch) AM ADMINISTRATIVE RESIDENT 12:06 PM ADMINISTRATIVE RESIDENT Cheikh Gautam M.D. LAB URINE ORDERABLES Performing Organization Address City/State/ZIP Code Phon e Number [facility]- [address] [place] [address] [place] [address] System in [place] [address] documented in this encounter Visit Diagnoses Diagnosis Encounter For Supervision Of Other Stella echols Unspecified Trimester (HCC) documented in this encounter Additional Health Concerns Assessment Noted Time PHQ-9 Depression Total Score: 4 12/20/2021 10:52 AM CS T documented as of this encounter Care Teams Set Making Machine Operator Relationship Specialty Start Date End Date Ben Arce M.D. PCP - General Family Medicine 01/13/[address] [place] [address] documented as of this encounter
--- OUTSIDE RECORDS SUMMARY | 2022-07-05 16:38 | XMS_ITS | Encounter Summary ---
:1990 Author Organization [facility] Address [address] [place] [address] Care Team Providers Name Role Phone Ben Arce M.D. Primary Care Provider Encounter Details Date Type Department Care Team Description 03/31/2022 Hospital Encounter Department of Cheikh Gautam Laboratory Medicine Minoo Garcia ([facility]) in [place], [place] [address] [place] [phone] Social History Tobacco Use Types Packs/Day Years [...] at Date Recorded Female 12/02/2021 5:19 PM EXTENSION WORK DIRECTOR documented as of this encounter Medications [...] RATIO, RANDOM, URINE PM CDT ([facility]) proc edure are in the results [...] M.D. LAB URINE ORDERABLES Performing Organization Address City/[facility]/ZIP Code Phon e Number [place] [address] [place], [place] [address] [facility] [place] [address] ALT (Alanine Aminotransferase) (03/31/2022 5:31 [...] M.D. LAB BLOOD ADD-ON Performing Organization Address City/[facility]/ZIP Code Phon e Number [place] [address] [place], [place] [address] [facility] [place] [address] AST (Aspartate Aminotransferase) (03/31/2022 5:31 [...] M.D. LAB BLOOD ADD-ON Performing Organization Address City/[facility]/ZIP Code Phon e Number [address] [address] [facility] [place] [address] (ABNORMAL) Creatinine with Estimated GFR (03/31/2022 5:31 PM CDT) Analysis Performed At Patho logist Time Signature Creatinine 0.58 (L) 0.59 - 03/31/2022 [facility] 1.04 mg/dL 5:59 PM CDT eGFR-Black/Afri >90 >=60 03/31/2022 [facility] can Citizen Of [place] mL/min/BSA 5:59 PM CDT Comment: ----ADDITIONAL INFORMATION---- [...] Organization Address City/State/ZIP Code Phon e Number [facility]- [address] [place] [address] [place] [address] [place] [address] [facility] [address] [place] documented in this encounter Visit Diagnoses Diagnosis High Risk (HCC) documented in this encounter Additional Health Concerns Assessment Noted Time PHQ-9 Depression Total Score: 4 12/20/2021 10:52 AM CS T documented as of this encounter Care Teams Dog Walker Relationship Specialty Start Date End Date Ben Arce M.D. PCP - General Family Medicine 01/13/[address] [place] [phone] documented as of this encounter
--- OUTSIDE RECORDS SUMMARY | 2022-07-05 16:38 | XMS_ITS | Encounter Summary ---
:1990 Author Organization [facility] Address [address] [place] [address] Care Team Providers Name Role Phone Ben Arce M.D. Primary Care Provider Encounter Details Date Type Department Care Team Description 02/28/2022 Orders Only Department of Obstetrics and Gau Terrence zamarripa M.D. Gynecology in [address] [address] [place] [address] [phone] Social History Tobacco Use Types Packs/Day Years [...] do you attend latter-day or Never 2021 restorationist services? Do you [...] at Date Recorded Female 12/02/2021 5:[address] documented as of this encounter Plan of Treatment Not on filedocumented as of this encounter Visit Diagnoses Not on filedocumented in this encounter Additional Health Concerns Assessment Noted Time PHQ-9 Depression Total Score: 4 12/20/2021 10:52 AM CS T documented as of this encounter Care Teams Import Customer Service Manager Relationship Specialty Start Date End Date Ben Arce M.D. PCP - General Family Medicine 01/13/[address] [place] [phone] documented as of this encounter
--- OUTSIDE RECORDS SUMMARY | 2022-07-05 16:38 | XMS_ITS | Encounter Summary ---
:1990 Author Organization [facility] Address [address] [place] [address] Care Team Providers Name Role Phone Ben Arce M.D. Primary Care Provider Encounter Details Date Type Department Care Team Description 02/01/2022 Hospital Encounter Department of Terrence Swenson High Risk Laboratory Medicine MGonzalez in [address] [address] [place], [place] [phone] [address] (Work) [phone] Social History Tobacco Use Types Packs/Day Years [...] do you attend episcopalian or Never 2021 denominational services? Do you [...] at Date Recorded Female 12/02/2021 5:19 PM FOOD TECHNOLOGIST documented as of this encounter Medications at [...] Name Priority Date/Time Associated Diagnosis Comme nts [id number] Routine 02/01/2022 9:52 AM High Risk Re sults for this PLUS-SENT OUT LAB CDT (HCC) procedure are in the results section. documented in this encounter Results [id number] Plus-Sent Out Lab (02/01/2022 9:52 AM CDT) [...] Organization Address City/State/ZIP Code Phon e Number [place] [facility] [address] [place] [address] [employer] [facility] [place] [address] [employer] [address] documented in this encounter Visit Diagnoses Diagnosis High Risk (HCC) documented in this encounter Additional Health Concerns Assessment Noted Time PHQ-9 Depression Total Score: 4 12/20/2021 10:52 AM CS T documented as of this encounter Care Teams Incident Response Lead Relationship Specialty Start Date End Date Ben Arce M.D. PCP - General Family Medicine 01/13/[address] [facility] [place] [address] documented as of this encounter
--- OUTSIDE RECORDS SUMMARY | 2022-07-05 16:38 | XMS_ITS | Encounter Summary ---
:1990 Author Organization [facility] Address [address] [place] [address] Care Team Providers Name Role Phone Ben [...] Expiration Date Visits Requ ested Visits Authorized [id number] 1 1 Encounter Details Date Type Department Care Team Description 04/17/2022 Hospital Encounter [facility] Rylie Mcdowell, 23 Weeks G[facility], [place] [id number] [address] [place], [place] [phone] [address] (Work) [phone] Social History Tobacco Use Types Packs/Day Years [...] you attend roman catholic or Never 2021 latter day services? Do [...] at Date Recorded Female 12/02/2021 5:19 PM SCIENTIST/ENGINEER documented as of this encounter Last Filed [...] Category I tracing. No UTC's traced via [place]. RN palpated during one episode ofuterine cramping, [...] documented as of this encounter Care Teams Sr. Director Product Management Relationship Specialty Start Date End Date Ben Arce M.D. PCP - General Family Medicine 01/13/[address] [place] [phone] documented as of this encounter
--- OUTSIDE RECORDS SUMMARY | 2022-07-05 16:38 | XMS_ITS | Encounter Summary ---
:1990 Author Organization [facility] Address [address] [place] [address] Care Team Providers Name Role Phone Ben Arce M.D. Primary Care Provider Reason for Visit Reason Comments Vomiting During Auth/Cert Specialty Diagnoses / Procedures Referred By Contact Refer red To Contact Diagnoses Procedures Referral ID Status Reason Start Date Expiration Date Visits Requ ested Visits Authorized [id number] 1 1 Encounter Details Date Type Department Care Team Description 06/12/2022 [facility], [address] [facility] [place], [place] [address] [place] [address] [place], [place] [phone] (Wo rk) [address] [phone] Social History Tobacco Use Types Packs/Day Years [...] at Date Recorded Female 12/02/2021 5:19 PM RECEIVING CHECKER documented as of this encounter Last [...] appointment on Sunday with her PCP in [place]. Education provided on staying hydrated and how [...] [facility]- [address] [facility], [place] [address] [address] [facility] [place] [address] [facility] [address] documented in this encounter Visit Diagnoses Not on filedocumented in this encounter Additional Health Concerns Assessment Noted Time PHQ-9 Depression Total Score: 4 12/20/2021 10:52 AM CS T documented as of this encounter Care Teams Dental Hygiene Instructor Relationship Specialty Start Date End Date Ben Arce M.D. PCP - General Family Medicine 01/13/[address] [place] [phone] documented as of this encounter
--- OUTSIDE RECORDS SUMMARY | 2022-07-05 16:38 | XMS_ITS | Encounter Summary ---
:1990 Author Organization [facility] Address [address] [place] [address] Care Team Providers Name Role Phone Ben Arce M.D. Primary Care Provider Encounter Details Date Type Department Care Team Description 12/20/2021 Silent Schedule Department of Terrence Swenson, Pregnanc y Examination Obstetrics and M.D. Test With Positive Gynecology in [address] [place], [place] [address] [address] [place], [place] [phone] [address] (Work) [phone] Social History Tobacco Use Types Packs/Day Years [...] do you attend judaism or Never 2021 alevism services? Do you [...] Date Recorded Female 12/02/2021 5:19 PM AIRLINE RESERVATIONIST documented as of this encounter Plan of Treatment Not on filedocumented as of this encounter Procedures Procedure Name Priority Date/Time Associated Comments Diagnosis US OB FIRST RAD - Routine 12/20/2021 10:50 Results fo r this TRIMESTER (most inpatients AM AIRLINE RESERVATIONIST Examination Test procedu re are in and all With Positive the results outpatients) Result section. documented in this encounter Results US OB First Trimester (12/20/2021 10:50 AM AIRLINE RESERVATIONIST) Anatomical Region Laterality Modality Body, Ultrasound OB RST LOS, Ultrasound ARZ LOS N/A Ultrasound Specimen (Source) Anatomical Collection Method Collection Time Re ceived Time Location / / Volume Laterality 12/20/2021 12:31 PM AIRLINE RESERVATIONIST Impressions 12/20/2021 12:34 PM AIRLINE RESERVATIONIST Single, viable, intrauterine gestation w ith CARLOS of August 14, 2022 (not consistent with menstrual dating). Narrative 12/20/2021 12:34 PM AIRLINE RESERVATIONIST EXAM: US OB FIRST TRIMESTER COMPARISON: None Physician: Dr. Swenson FINDINGS: Gestational age and CARLOS by LMP or OB/EHR assignment: 7 w 3 d, CARLOS: 08/05/2022 INTRAUTERINE Pole: Normal, [place]-Rump Length: 0 .50 cm Gestational Sac: Normal [...] 3 d, CARLOS: 08/05/2022 INTRAUTERINE Pole: Normal, [place]-Rump Length: 0 .50 cm Gestational Sac: Normal [...] documented as of this encounter Care Teams Blindmaker Relationship Specialty Start Date End Date Ben Arce M.D. PCP - General Family Medicine 01/13/21 [address] [place] [address] documented as of this encounter
--- OUTSIDE RECORDS SUMMARY | 2022-07-05 16:38 | XMS_ITS | Encounter Summary ---
:1990 Author Organization [facility] Address [address] [place] [address] Care Team Providers Name Role Phone Ben Arce M.D. Primary Care Provider Reason for Visit Reason Comments Routine Visit 16 2/7 wk ob check pelvic/lo wer back pain 7/10 pain scale, needs referral to chiropract or Outpatient (Routine) - Authorized Specialty Diagnoses / Procedures Referred By Contact Refer red To Contact Obstetrics and Cheikh Gautam [facility] william Gynecology M.DMaribell Referral ID Status Reason Start Date Expiration Date Visits V isits Requested Authorized [id number] Authorized 12/20/2021 12/20/2022 15 15 Encounter Details Date Type Department Care Team Description 03/01/2022 Routine Department of Terrence Swenson Pregnan cy Examination Test With Positive Result (HCC) (Primary Dx); Obstetrics and M.D. Encounter For Supervision Of Normal Preg roberta Unspecified Trimester (HCC) Gynecology in [address] [place], [place] [address] [place], [place] [phone] (Work) [phone] Social History Tobacco Use Types Packs/Day Years [...] 11/20/2021 organizations such as sabianism groups, unions, fraVideoStep or athletic groups, or school groups? How [...] Date Recorded Female 12/02/2021 5:19 PM DIGITAL HARDWARE DESIGN ENGINEER documented as of this encounter [...] and Family: Twice a week ??? Attends Yazdanism Services: Never ??? Active Member of Clubs [...] documented as of this encounter Care Teams Distribution Agent Relationship Specialty Start Date End Date Ben Arce M.D. PCP - General Family Medicine 01/13/[address] [place] [phone] documented as of this encounter
--- OUTSIDE RECORDS SUMMARY | 2022-07-05 16:38 | XMS_ITS | Encounter Summary ---
:1990 Author Organization [facility] Address [address] [place] [address] Care Team Providers Name Role Phone Ben Arce M.D. Primary Care Provider Reason for Visit Reason Comments Routine Visit Patient seen in L&D yesterda y for decreased movement and spotting Outpatient (Routine) - Authorized Specialty Diagnoses / Procedures Referred By Contact Refer red To Contact Obstetrics and Cheikh Gautam [facility] Gynecology M.DMaribell Referral ID Status Reason Start Date Expiration Date Visits V isits Requested Authorized [id number] Authorized 12/20/2021 12/20/2022 15 15 Encounter Details Date Type Department Care Team Description 04/18/2022 Routine Department of Rylie Mcdowell, 23 Weeks Gestation Obstetrics and M.D. ([facility]) Gynecology in [address] (Primary Dx) [place] [address] [address] [facility] [address] [place], [place] [phone] [address] (Work) [phone] Social History Tobacco Use Types Packs/Day Years [...] do you attend shinto or Never 2021 rastafarian services? Do you [...] Date Recorded Female 12/02/2021 5:19 PM SENIOR HOUSEKEEPER documented as of this encounter Last Filed [...] documented as of this encounter Care Teams Energy Efficient Site Manager Relationship Specialty Start Date End Date Ben Arce M.D. PCP - General Family Medicine 01/13/[address] [facility] [address] documented as of this encounter
--- OUTSIDE RECORDS SUMMARY | 2022-07-05 16:38 | XMS_ITS | Encounter Summary ---
:1990 Author Organization [facility] Address [address] [place] [address] Care Team Providers Name Role Phone Ben Arce M.D. Primary Care Provider Reason for Visit Reason Comments Hand Injury Encounter Details Date Type Department Care Team Description 02/11/2022 [facility] Forbes ontusion Hand Initial Department DMinoo Right (Primary Dx) [address] [place] [address] [phone] (Wo rk) Social History Tobacco Use Types [...] do you attend jewish or Never 2021 sabianist services? Do you [...] at Date Recorded Female 12/02/2021 5:19 PM SURGICAL SALES REPRESENTATIVE documented as of this encounter [...] clinic by calling the appointment center at [phone]. Thank you for choosing [facility] for your care. It was a pleasure taking care of you today in our Emergency Department. AttachmentsThe following attachments cannot be sent through Care Everywhere.Hand Contusion [id number] (Greek)documented in this encounter Medications at Time [...] Forbes M.D. - 02/11/2022 9:44 PM CDT [facility] EMERGENCY DEPARTMENT ENCOUNTER Patient Name: Lulu Mata PCP: Ben Arce M.D. SUBJECTIVE CHIEF COMPLAINT/REASON FOR VISIT Hand Injury HISTORY OF PRESENT ILLNESS Lulu Mata is a 31 y.o. female presenting with right hand pain. She was at the [facility] today when her hand was shut [...] documented as of this encounter Care Teams Gospel Worker Relationship Specialty Start Date End Date Ben Arce M.D. PCP - General Family Medicine 01/13/[address] [place] [phone] documented as of this encounter
--- OUTSIDE RECORDS SUMMARY | 2022-07-05 16:38 | XMS_ITS | Encounter Summary ---
:1990 Author Organization [facility] Address [address] [place] [address] Care Team Providers Name Role Phone Ben Arce M.D. Primary Care Provider Reason for Visit Reason Comments Nurse Visit NOB ED/INTAKE APPT Encounter Details Date Type Department Care Team Description 12/08/2021 Virtual Visit Department of Terrence Swenson M.D. [address] [address] Encounter For Supervision Of Other Stella l Unspecified Trimester (Primary Dx); Obstetrics and Autumn Ptael R.N. [address] [address] Examination Test With Positive Result Gynecology in [place], [place] [address] [address] Social History Tobacco Use Types [...] do you attend faith or Never 2021 christian services? Do you [...] Date Recorded Female 12/02/2021 5:19 PM LEAD SLOT TECHNICIAN documented as of this encounter Patient Instructions [...] Provided Today: Beginnings: , , and [facility] brochure-[facility] SLOT TECHNICIAN documented in this encounter Progress Notes Autumn Patel R.N. - 12/08/2021 1:30 PM CST Consult conducted via real-time audio/video technology by Autumn Patel R.N. in [facility] to the patient in Patient's Home. episode opened-please see history for details. Conceived with Nexplanon in place-this was removed after positive Beta Hcg. 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 Denies concerns. Encouraged to call with questions or concerns. SLOT TECHNICIAN documented in this encounter Plan of Treatment Not on filedocumented as of this encounter Results Hepatitis C Virus Antibody Screen (12/20/2021 11:34 AM LEAD SLOT TECHNICIAN) athologist Signature HCV Ab Scrn Negative Negative 12/21/2021 [facility] [place] 8:10 AM LEAD SLOT TECHNICIAN Comment: Jcukoz-wq-fztjts ratio is <1.00 . Specimen Anatomical Collection Method Collection Time Receive d Time (Source) Location / / Volume Laterality Blood (Blood, 12/20/2021 11:34 12/21/2021 6:40 Venous) AM LEAD SLOT TECHNICIAN AM LEAD SLOT TECHNICIAN Cheikh Gautam M.D. LAB MICROBIOLOGY - BLOOD ORD ERABLES Performing Organization Address City/State/ZIP Code Phon e Number [facility] [address] [place] [phone] SU[facility] CENTER [facility] [place] [address] Laboratory Medicine and Pathology [address] SANDOVAL Syphilis Total Ab w/ Reflex, Serum (12/20/2021 11:34 AM LEAD SLOT TECHNICIAN) [facility] Method Time Signature Syphilis Nonreactive Nonreactive 12/21/2021 [facility] Total Ab w/ 11:40 AM LEAD SLOT TECHNICIAN Reflex Comment: No serologic evidence of infection with T. pallidum (syphilis). ??Repeat testing may be cons idered in patients with suspected acute or primary syphilis in 2-4 weeks. For additional information on interpreta tion of the syphilis reverse algorithm and resul ts, see: [email or web address] children's [email or web address] Systems.com/ it-mmfiles/Syphilis_Serology_Algorithm.p df Specimen Anatomical Collection Method Collection Time Receive d Time (Source) Location / / Volume Laterality Blood (Blood, 12/20/2021 11:34 12/20/2021 6:27 Venous) AM LEAD SLOT TECHNICIAN PM LEAD SLOT TECHNICIAN Cheikh Gautam M.D. LAB BLOOD ADD-ON Performing Organization Address City/[facility] Phon e Number [facility]- [address] [place] [phone] [place] [address] System [address] Rubella Antibodies, IgG (12/20/2021 11:34 AM LEAD SLOT TECHNICIAN) athologist Signature Rubella Ab, Positive 12/21/2021 [facility] IgG, S 11:40 AM LEAD SLOT TECHNICIAN Comment: Results suggest response to immunization or prior exposure to the virus. ----REFERENCE VALUE---- Vaccinated: Positive (>=1.0 AI) Unvaccinated: Negative (<=0.7 AI) Rubella IgG Antibody Index 2.6 12/21/2021 11 :40 AM LEAD SLOT TECHNICIAN [facility] Specimen Anatomical Collection Method Collection Time Receive d Time (Source) Location / / Volume Laterality Blood (Blood, 12/20/2021 11:34 12/20/2021 6:27 Venous) AM LEAD SLOT TECHNICIAN PM LEAD SLOT TECHNICIAN Cheikh Gautam M.D. LAB MICROBIOLOGY - BLOOD ORD ERABLES Performing Organization Address City/State/ZIP Code Phon e Number [facility]- [address] [place] [phone] [place] [address] System [address] HIV-1/-2 Ag and Ab Scrn, Plasma (12/20/2021 11:34 AM LEAD SLOT TECHNICIAN) P athologist Signature HIV Ag/Ab Negative Negative 12/21/2021 [facility] Scrn, 11:40 AM LEAD SLOT TECHNICIAN P Comment: Negative result does not rule out HIV in fection. If exposure to HIV infection occurred <14 d ays ago, contact the laboratory to request additi on of HIV-1 RNA detection / quantification test. HIV-1 p24 Ag Scrn, P Negative Negative 12/21/2021 11:40 AM LEAD SLOT TECHNICIAN CA Comment: Negative result does not rule out HIV in fection. If exposure to HIV infection occurred <14 d ays ago, contact the laboratory to request additi on of HIV-1 RNA detection / quantification test. HIV-1 Ab Scrn, P Negative Negative 12/21/2021 11: 40 AM LEAD SLOT TECHNICIAN CA Comment: Negative result does not rule out HIV in fection. If exposure to HIV infection occurred <14 d ays ago, contact the laboratory to request additi on of HIV-1 RNA detection / quantification test. HIV-2 Ab Scrn, P Negative Negative 12/21/2021 11: 40 AM LEAD SLOT TECHNICIAN [facility] Comment: Negative result does not rule out HIV in fection. If exposure to HIV infection occurred <14 d ays ago, contact the laboratory to request additi on of HIV-1 RNA detection / quantification test. Specimen Anatomical Collection Method Collection Time Receive d Time (Source) Location / / Volume Laterality Blood (Blood, 12/20/2021 11:34 12/20/2021 6:27 Venous) AM LEAD SLOT TECHNICIAN PM LEAD SLOT TECHNICIAN Cheikh Gautam M.D. LAB MICROBIOLOGY - BLOOD ORD ERAKAMALJIT Performing Organization Address City/State/ZIP Code Phon e Number [facility]- [address] [place] [address], [place] [phone] [place] [address] System in [place] HBs Antigen , Serum (12/20/2021 11:34 AM LEAD SLOT TECHNICIAN) [facility] Method Time Signature HBs Antigen Non reactive Non reactive 12/20/2021 [place] , S 4:50 PM LEAD SLOT TECHNICIAN Specimen Anatomical Collection Method Collection Time Receive d Time (Source) Location / / Volume Laterality Blood (Blood, 12/20/2021 11:34 12/20/2021 3:49 Venous) AM LEAD SLOT TECHNICIAN PM LEAD SLOT TECHNICIAN Cheikh Gautam M.D. LAB MICROBIOLOGY - BLOOD ORD ERAKAMALJIT Performing Organization Address City/State/ZIP Code Phon e Number [facility]- [address] [place] [address] [facility] [place], [place] [address] [place] [address] (ABNORMAL) CBC without Differential (12/20/2021 11:34 AM LEAD SLOT TECHNICIAN) [facility] Method Time Signature Hemoglobin 14.1 11.6 - 12/20/2021 [place] 15.0 g/dL 11:44 AM LEAD SLOT TECHNICIAN Hematocrit 41.0 35.5 - 12/20/2021 [place] 44.9 % 11:44 AM LEAD SLOT TECHNICIAN Erythrocytes 4.91 3.92 - 12/20/2021 [place] 5.13 11:44 AM LEAD SLOT TECHNICIAN x10(12)/L MCV 83.5 78.2 - 12/20/2021 [place] 97.9 fL 11:44 AM LEAD SLOT TECHNICIAN RBC Distrib Width 11.7 (L) 12.2 - 12/20/2021 [place] 16.1 % 11:44 AM LEAD SLOT TECHNICIAN Platelet Count 360 157 - 371 12/20/2021 [place] x10(9)/L 11:44 AM LEAD SLOT TECHNICIAN Leukocytes 11.1 (H) 3.4 - 9.6 12/20/2021 [place] x10(9)/L 11:44 AM LEAD SLOT TECHNICIAN Specimen Anatomical Collection Method Collection Time Receive d Time (Source) Location / / Volume Laterality Blood (Blood, 12/20/2021 11:34 12/20/2021 Venous) AM LEAD SLOT TECHNICIAN 11:40 AM LEAD SLOT TECHNICIAN Cheikh Gautam M.D. LAB BLOOD ADD-ON Performing Organization Address City/State/ZIP Code Phon e Number [facility]- [address] [place] [address] [place] [address] System in [place] [address] Antibody Screen, RBC (with reflex Antibody ID) (12/20/2021 11:34 AM LEAD SLOT TECHNICIAN) P athologist Signature Antibody Screen NEG 12/20/2021 [place] 5:16 PM LEAD SLOT TECHNICIAN Specimen Anatomical Collection Method Collection Time Receive d Time (Source) Location / / Volume Laterality Blood (Blood, 12/20/2021 11:34 12/20/2021 3:49 Venous) AM LEAD SLOT TECHNICIAN PM LEAD SLOT TECHNICIAN Cheikh Gautam M.D. LAB BLOOD BANK TEST ORDERABL ES Performing Organization Address City/[facility]/ZIP Code Phon e Number [facility]- [address] [place] [address] [facility] - [address] ABORh, RBC (12/20/2021 11:34 AM LEAD SLOT TECHNICIAN) P athologist Signature ABO Group O 12/20/2021 5:16 AUST PM LEAD SLOT TECHNICIAN Rh Type POS 12/20/2021 5:16 AUST PM LEAD SLOT TECHNICIAN Specimen Anatomical Collection Method Collection Time Receive d Time (Source) Location / / Volume Laterality Blood (Blood, 12/20/2021 11:34 12/20/2021 3:51 Venous) AM LEAD SLOT TECHNICIAN PM LEAD SLOT TECHNICIAN Cheikh Gautam M.D. LAB BLOOD BANK TEST ORDERABL ES Performing Organization Address City/State/ZIP Code Phon e Number [facility]- [address] [place] [address] [facility] - [address] Bacterial Culture, Aerobic + Susc, Urine (12/20/2021 11:26 AM LEAD SLOT TECHNICIAN) [facility] Method Time Signature Urine Culture No growth 12/21/2021 [facility] after 1 day 8:40 AM LEAD SLOT TECHNICIAN of incubation. Specimen Anatomical Collection Method Collection Time Receive d Time (Source) Location / / Volume Laterality Urine (Urine, 12/20/2021 11:26 12/20/2021 2:19 Midstream) AM LEAD SLOT TECHNICIAN PM LEAD SLOT TECHNICIAN Comment: Specimen Source Site: Urine Cheikh Gautam M.D. LAB MICROBIOLOGY - GENERAL O RDERABLES Performing Organization Address City/State/ZIP Code Phon e Number [facility]- [address] [place] [id number] [place] [address] [place] [address] System in [address] Urinalysis with Microscopic if Indicated (12/20/2021 11:26 AM LEAD SLOT TECHNICIAN) P athologist Signature Source Urine, 12/20/2021 [place] Urine, Clean 12:12 PM LEAD SLOT TECHNICIAN Catch Clarity Clear Clear 12/20/2021 [place] 12:12 PM LEAD SLOT TECHNICIAN Color Yellow 12/20/2021 [place] 12:12 PM LEAD SLOT TECHNICIAN Comment: ----REFERENCE VALUE---- Colorless Yellow Ronda Blood Negative Negative 12/20/2021 12:12 PM LEAD SLOT TECHNICIAN [facility] Nitrite Negative Negative 12/20/2021 12:12 PM LEAD SLOT TECHNICIAN [facility] Leukocyte Esterase Negative Negative 12/20/2021 12:[address] [facility] Protein Negative mg/dL 12/20/2021 12:12 PM LEAD SLOT TECHNICIAN [facility] Comment: ----REFERENCE VALUE---- Negative Trace Glucose Negative Negative mg/dL 12/20/2021 12:12 PM LEAD SLOT TECHNICIAN O FRANSICO Ketone Negative Negative mg/dL 12/20/2021 12:12 PM LEAD SLOT TECHNICIAN O FRANSICO Bilirubin Negative Negative 12/20/2021 12:12 PM LEAD SLOT TECHNICIAN [facility] pH 6.0 5.0 - 8.0 12/20/2021 12:12 PM LEAD SLOT TECHNICIAN [facility] Specific [place] 1.005 1.001 - 1.035 12/20/2021 12:12 PM LEAD SLOT TECHNICIAN [facility] Urobilinogen 0.2 0.2 - 1.0 mg/dL 12/20/2021 12:[address] [facility] Specimen Anatomical Collection Method Collection Time Receive d Time (Source) Location / / Volume Laterality Urine (Urine, 12/20/2021 11:26 12/20/2021 Clean Catch) AM LEAD SLOT TECHNICIAN 12:06 PM LEAD SLOT TECHNICIAN Cheikh Gautam M.D. LAB URINE ORDERABLES Performing Organization Address City/State/ZIP Code Phon e Number [facility]- [address] [place] [address] [place] [address] System in [place] [address] documented in this encounter Visit Diagnoses Diagnosis Encounter For Supervision Of Other Stella l Unspecified Trimester (HCC) - Primary Examination Test With Positive Result (HCC) documented in this encounter Care Teams Offset Printing Operator Relationship Specialty Start Date End Date Ben Arce M.D. PCP - General Family Medicine 01/13/[address] [place] [address] documented as of this encounter
--- OUTSIDE RECORDS SUMMARY | 2022-07-05 16:38 | XMS_ITS | Encounter Summary ---
:1990 Author Organization [facility] Address [address] [place] [address] Care Team Providers Name Role Phone Ben Arce M.D. Primary Care Provider Reason for Visit Reason Comments Routine Visit 20weeks Outpatient (Routine) - Authorized Specialty Diagnoses / Procedures Referred By Contact Refer red To Contact Obstetrics and Cheikh Gautam [facility] william Gynecology [place] Referral ID Status Reason Start Date Expiration Date Visits V isits Requested Authorized [id number] Authorized 12/20/2021 12/20/2022 15 15 Encounter Details Date Type Department Care Team Description 03/27/2022 Routine Department of Cheikh Gautam k (HCC) (Primary Dx); Obstetrics and Minoo Garcia Encounter For Supervision Of Normal Unspecified Trimester (HCC) Gynecology in [place], [place] [address] [place] [address] Social History Tobacco Use Types Packs/Day Years [...] do you attend mormonism or Never 2021 sabianism services? Do you [...] at Date Recorded Female 12/02/2021 5:19 PM GENERAL AGENT documented as of this encounter Last [...] -Gonorhrea/chlamydia urine today -Patient is transferring to [place] because it is closer -Problem list updated [...] Vaccinations: COVID complete but needs booster/Flu declines Pet Training Instructor: Pap NIL w/ neg HPV 11/2021 Aneuploidy [...] she told me she is transferring to [place] because it is closer. documented in this [...] M.D. LAB URINE ORDERABLES Performing Organization Address City/[facility]/ZIP Code Phon e Number [place] [address] [place], [place] [address] [place] [facility] [place] [phone] ALT (Alanine Aminotransferase) (03/31/2022 5:31 PM CDT) Patholo gist Method Time Signature Alanine 10 7 - 45 03/31/2022 NPR[facility] Aminotransferase U/L 5:59 PM CDT (ALT), P Specimen Anatomical Collection Method Collection Time Receive d Time (Source) Location / / Volume Laterality Blood (Blood, 03/31/2022 5:31 PM 03/31/20 5:34 Venous) CDT PM CDT Cheikh Gautam M.D. LAB BLOOD ADD-ON Performing Organization Address City/[facility] Phon e Number [address] [address] [place] [facility] [place] [phone] AST (Aspartate Aminotransferase) (03/31/2022 5:31 PM CDT) [facility] gist Method Time Signature Aspartate 13 8 - 43 03/31/2022 NPR[facility] Aminotransferase U/L 5:59 PM CDT (AST), P Specimen Anatomical Collection Method Collection Time Receive d Time (Source) Location / / Volume Laterality Blood (Blood, 03/31/2022 5:31 PM 03/31/20 22 5:34 Venous) CDT PM CDT Cheikh Gautam M.D. LAB BLOOD ADD-ON Performing Organization Address City/[facility]/ZIP Code Phon e Number [place] [address] [place], [place] [address] [place] [facility] [place] [phone] (ABNORMAL) Creatinine with Estimated GFR (03/31/2022 5:31 PM CDT) Analysis Performed At [facility] logist Time Signature Creatinine 0.58 (L) [...] M.D. LAB BLOOD ADD-ON Performing Organization Address City/[facility] Phon e Number [facility]- [address] [place] [address] [place] [address] [place] [address] Chlamydia / Gonorrhoeae Amplified RNA (03/27/2022 10:42 AM CDT) [facility] gist Method Time Signature Source Urine, 03/27/2022 [...] - GENERAL O RDERABLES Performing Organization Address City/[facility]/ZIP Code Phon e Number [facility]- [address] [place] [address] [place] [address] System in [place] [address] [facility] documented in this encounter Visit Diagnoses Diagnosis High Risk (HCC) - Primary Encounter For Supervision Of Normal Preg roberta Unspecified Trimester (HCC) documented in this encounter Additional Health Concerns Assessment Noted Time PHQ-9 Depression Total Score: 4 12/20/2021 10:52 AM CS T documented as of this encounter Care Teams Chemistry Technologist Relationship Specialty Start Date End Date Ben Arce M.D. PCP - General Family Medicine 01/13/[address] [place] [address] documented as of this encounter
--- OUTSIDE RECORDS SUMMARY | 2022-07-05 16:38 | XMS_ITS | Encounter Summary ---
:[address] [facility] Address [address] [place] [address] Care Team Providers Name Role Phone Ben Arce M.D. Primary Care Provider Reason for Visit Reason Comments Nausea Vomiting During Auth/Cert Specialty Diagnoses / Procedures Referred By Contact Refer red To Contact Diagnoses . Procedures . Referral ID Status Reason Start Date Expiration Date Visits Requ ested Visits Authorized [id number] 1 1 Encounter Details Date Type Department Care Team Description 04/28/[address] [facility] Rylie Mcdowell Encounte r [facility] Praguolive Hennessy Supervision Of [facility], [place] [address] [facility] Normal Floor [place], [place] Unspecified [address] [place] [address] Trimester (HCC) [place], [place] [phone] [address] (Work) [phone] Social History Tobacco Use Types Packs/Day Years [...] do you attend mandaeism or Never 2021 worship services? Do you [...] Date Recorded Female 12/02/2021 5:19 PM MANAGER FIELD SERVICE documented as of this encounter Last Filed [...] stated she has a clinic appointment at [facility] on Sunday with her normal doctor. [...] 8.0 04/28/2022 11:36 AM CDT NPRG Specific [place] 1.015 1.001 - 1.035 04/28/2022 11:36 AM [...] Organization Address City/State/ZIP Code Phon e Number [place] [address] [address] [place], [place] [address] [address] [place] [address] Influenza A/B, SARS CoV-2, PCR, Rapid, Varies (04/28/2022 8:48 AM CDT) [facility] Method Time Signature Influenza A, Negative Negative 04/28/2022 NPRG PCR, Rapid, V 9:26 AM CDT Influenza B, Negative Negative 04/28/2022 NPR[facility] PCR, Rapid, V 9:26 AM CDT SARS CoV-2, Undetected Undetected 04/28/2022 NPR[facility] PCR, Rapid, V 9:26 AM CDT Comment: ----ADDITIONAL INFORMATION---- This RT-PCR test was performed using the Carissa SARS-CoV-2 and Influenza A/B Reagent assay from [employer], which has received Emergency Use Authori zation(EUA) by the U.S. Food and Drug Administration . Fact sheets for this Emergency Use Autho rization (EUA) assay can be found at the following link s: For Healthcare Providers: https://www.fda.gov/media/647122/downloa d For Patients: https://www.fda.gov/media/441577/downloa d Infl A/B, SARS CoV-2, PCR, Source Swab, Nasopharynx 04/28/2022 9:02 AM CDT NPRG Specimen Anatomical Collection Method Collection Time Receive d Time (Source) Location / / Volume Laterality Varies 04/28/2022 8:48 AM 9:02 CDT AM CDT Rylie Mcdowell M.D. LAB MICROBIOLOGY - GENERAL O RDERABLES Performing Organization Address City/State/ZIP Code Phon e Number [address] [place] [address] documented in this encounter Visit Diagnoses [...] as of this encounter Care Teams Land Use Planner Relationship Specialty Start Date End Date Ben Arce M.D. PCP - General Family Medicine 01/13/[address] [place] [phone] documented as of this encounter
--- OUTSIDE RECORDS SUMMARY | 2022-07-05 16:38 | XMS_ITS | Encounter Summary ---
:1990 Author Organization [facility] Address [address] [place] [address] Care Team Providers Name Role Phone Ben Arce M.D. Primary Care Provider Reason for Referral Outpatient (Routine) - Authorized Specialty Diagnoses / Procedures Referred By Contact Refer red To Contact Obstetrics and Cheikh Gautam [facility] Gynecology [place] Referral ID Status Reason Start Date Expiration Date Visits V isits Requested Authorized [id number] Authorized 12/20/2021 12/20/2022 15 15 Scheduling Instructions Every 4 weeks until 28 week gestation. Then every 2 weeks until 36 week gestati on. Then every 1 week until 40+ week gestati on. NG DEPARTMENT END FINDER Reason for Visit Reason Comments Initial Visit 7w 3d Outpatient (Routine) - Closed Specialty Diagnoses / Procedures Referred By Contact Refer red To Contact Obstetrics and Diagnoses Examination Test With Positive Result (HCC) Terrence Swenson M.D. [facility] [address] [place] [address] Referral ID Status Reason Start Date Expiration Date Visits Requ ested Visits Authorized [id number] Closed 12/01/2021 12/01/2022 1 1 Encounter Details Date Type Department Care Team Description 12/20/2021 Initial Department of Obstetrics Col Dain in [place], [place]: 6w1d and Gynecology in [place], [place] [address] [place] [address] Social History Tobacco Use Types Packs/Day [...] do you attend jew or Never 2021 spiritism services? Do you [...] Date Recorded Female 12/02/2021 5:19 PM ROVING DEPARTMENT END FINDER documented as of this encounter Last Filed Vital Signs Vital Sign Reading Time Taken Comments Blood Pressure 136/80 12/20/2021 10:52 AM ROVING DEPARTMENT END FINDER Pulse - - Temperature - - Respiratory Rate - - Oxygen Saturation - - Inhaled Oxygen Concentration - - Weight 69.2 kg (152 lb 8.9 oz) 12/20/2021 10:52 AM ROVING DEPARTMENT END FINDER Height - - Body Mass Index 28.8 12/09/2021 8:31 AM ROVING DEPARTMENT END FINDER documented in this encounter Progress Notes Cheikh [...] and Family: Twice a week ??? Attends Spiritism Services: Never ??? Active Member of Clubs [...] Vaccinations: COVID complete but needs booster/Flu declines Angle Furnaceman: Pap NIL w/ neg HPV 11/2021 Aneuploidy screening/Carrier Screening: declines Preeclampsia prevention: aspirin to start at 12 weeks FAS: 28 week labs: TDAP /Rhogam GBS Growth Ultrasounds: surveillance: Presentation (36 weeks): Del planning: PPBC: Problems: 1. Hx preeclampsia: aspirin to start at 12 weeks. Need to get baseline preE labs 2. Hx GDM: Early A1C ordered NG DEPARTMENT END FINDER documented in this encounter Plan of Treatment [...] Diagnoses Obstetrics and Outpatient Referral Routine 15 [facility] Gynecology office starting 0 12/20/2021 visit (clinic) [...] US PROCEDURES Hemoglobin A1c (12/20/2021 11:34 AM ROVING DEPARTMENT END FINDER) P athologist Signature Hemoglobin A1c, 5.2 4.2 - 5.6 12/20/2021 [place] B % 12:27 PM ROVING DEPARTMENT END FINDER Specimen Anatomical Collection Method Collection Time Receive d Time (Source) Location / / Volume Laterality Blood (Blood, 12/20/2021 11:34 12/20/2021 Venous) AM ROVING DEPARTMENT END FINDER 11:40 AM ROVING DEPARTMENT END FINDER Cheikh Gautam M.D. LAB BLOOD ADD-ON Performing Organization Address City/State/ZIP Code Phon e Number [facility]- [address] [place] [address] [facility] [place] [address] System in [place] [address] documented in this [...] documented as of this encounter Care Teams Outbound Sales Professional Relationship Specialty Start Date End Date Ben Arce M.D. PCP - General Family Medicine 01/13/[address] [place] [address] documented as of this encounter
--- OUTSIDE RECORDS SUMMARY | 2022-07-05 16:38 | XMS_ITS | Encounter Summary ---
:1990 Author Organization [facility] Address [address] [place] [address] Care Team Providers Name Role Phone Ben Arce M.D. Primary Care Provider Encounter Details Date Type Department Care Team Description 12/20/2021 Orders Only Department of Obstetrics and Gau Terrence zamarripa M.D. Gynecology in [address] [address] [place] [address] [phone] Social History Tobacco Use Types Packs/Day Years [...] do you attend buddhism or Never 2021 presybeterian services? Do you [...] at Date Recorded Female 12/02/2021 5:19 PM EYEWEAR CONSULTANT documented as of this encounter Plan of Treatment Not on filedocumented as of this encounter Visit Diagnoses Not on filedocumented in this encounter Additional Health Concerns Assessment Noted Time PHQ-9 Depression Total Score: 4 12/20/2021 10:52 AM CS T documented as of this encounter Care Teams Shipyard Supervisor Relationship Specialty Start Date End Date Ben Arce M.D. PCP - General Family Medicine 01/13/[address] [place] [phone] documented as of this encounter
--- OUTSIDE RECORDS SUMMARY | 2022-07-05 16:38 | XMS_ITS | Encounter Summary ---
:1990 Author Organization [facility] Address [address] [place] [address] Care Team Providers Name Role Phone Ben Arce M.D. Primary Care Provider Encounter Details Date Type Department Care Team Description 03/27/2022 Ancillary Procedure Department of Cheikh Gautam For Obstetrics and Minoo Garcia Supervision O f Other Gynecology in Normal [place], [place] Unspecified [address] Trimester ([place]) [place] [address] Social History Tobacco Use Types [...] do you attend scientologist or Never 2021 synagogue services? Do you [...] at Date Recorded Female 12/02/2021 5:19 PM CARETAKER GROUNDS documented as of this encounter Plan of [...] documented as of this encounter Care Teams Harness Repairer Relationship Specialty Start Date End Date Ben Arce M.D. PCP - General Family Medicine 01/13/21 [address] [facility] [place] [address] documented as of this encounter
--- OUTSIDE RECORDS SUMMARY | 2022-07-05 16:39 | XMS_ITS | Encounter Summary ---
:1990 Author Organization [facility] Address [address] [place] [address] Care Team Providers Name Role Phone Ben Arce M.D. Primary Care Provider Reason for Visit Reason Comments Other right hand injury---yesterda y Encounter Details Date Type Department Care Team Description 05/18/2021 Office Visit Department of Alexander Estrella Pain Hand Right (Primary Dx); Medicine in [facility] Contusion Hand Initial Right [place], [place] [address] [place] [phone] Social History Tobacco Use Types Packs/Day Years [...] do you attend buddhism or Never 2021 zoroastrianism services? Do you [...] at Date Recorded Female 12/02/2021 5:19 PM BRONZER documented as of this encounter Last Filed [...] She had pain limiting her making a [place] with the thumb and index finger. No [...] Right documented in this encounter Care Teams Magazine Keeper Relationship Specialty Start Date End Date Ben Arce M.D. PCP - General Family Medicine 01/13/[address] [place] [address] documented as of this encounter
--- OUTSIDE RECORDS SUMMARY | 2022-07-05 16:39 | XMS_ITS | Encounter Summary ---
:1990 Author Organization [facility] Address [address] [place] [address] Care Team Providers Name Role Phone Ben Arce M.D. Primary Care Provider Encounter Details Date Type Department Care Team Description 11/28/2021 Hospital Encounter Department of Erika Jones Laboratory Laboratory Medicine CJ HammerN, Results in [place], C.N.PMaribell, M.S.N. [place] [address] [place] [address] [phone] Social History Tobacco Use Types Packs/Day Years [...] do you attend mormon or Never 2021 alevism services? Do you [...] at Date Recorded Female 12/02/2021 5:19 PM TUMBLING AND ROLLING SUPERVISOR documented as of this encounter Medications [...] Abnormal Laboratory Results for this GONADOTROPIN (HCG), TUMBLING AND ROLLING SUPERVISOR Results procedur e are in ROBERTA, the results section. documented in this encounter Results (ABNORMAL) hCG (Human Chorionic Gonadotropin), Quantitative, (11/28/2021 4:00 PM TUMBLING AND ROLLING SUPERVISOR) P athologist Signature HCG, 94 (H) <5 IU/L 11/28/2021 NPRG Quantitative, 7:47 PM TUMBLING AND ROLLING SUPERVISOR , P Comment: Biotin has been [...] (Blood, 11/28/2021 4:00 PM 11/28/19 6:56 Venous) TUMBLING AND ROLLING SUPERVISOR PM TUMBLING AND ROLLING SUPERVISOR Erika Jones APRN, C.N.P., M.S.N. LAB BLOOD ADD-ON Performing Organization Address City/State/ZIP Code Phon e Number [facility]- [address] [place], [place] [address] [place] [address] [place] [address] [address] [facility] documented in this encounter Visit Diagnoses Diagnosis Abnormal Laboratory Results documented in this encounter Care Teams Rescue Instructor Relationship Specialty Start Date End Date Ben Arce M.D. PCP - General Family Medicine 01/13/[address] [place] [phone] documented as of this encounter
--- OUTSIDE RECORDS SUMMARY | 2022-07-05 16:39 | XMS_ITS | Encounter Summary ---
:1990 Author Organization [facility] Address [address] [place] [address] Care Team Providers Name Role Phone Ben Arce M.D. Primary Care Provider Reason for Visit Reason Comments Nausea OTHER Breast pain Vomiting Positive at home test X 4 Encounter Details Date Type Department Care Team Description 11/24/2021 Comprehensive Visit Department of Grant Jones ncsharyn Test (Primary Dx); Obstetrics and J, REFERENCE LIBRARY ASSISTANT, Counseling Bi rth Control; Gynecology in [facility] C.N.P., M.S.N. Pap Smear Examination [place], [place] [address] [place] [phone] Social History Tobacco Use Types Packs/Day Years [...] do you attend presybeterian or Never 2021 roman catholic services? Do [...] at Date Recorded Female 12/02/2021 5:19 PM BANDER AND CELLOPHANER MACHINE documented as of this encounter Last Filed Vital Signs Vital Sign Reading Time Taken Comments Blood Pressure 166/67 11/24/2021 1:50 PM BANDER AND CELLOPHANER MACHINE Pulse 118 11/24/2021 1:49 PM BANDER AND CELLOPHANER MACHINE Temperature 37.2 ??C (99 ??F) 11/24/2021 1:49 PM BANDER AND CELLOPHANER MACHINE Respiratory Rate - - Oxygen Saturation - - Inhaled Oxygen Concentration - - Weight 71.6 kg (157 lb 12.8 oz) 11/24/2021 1:49 PM BANDER AND CELLOPHANER MACHINE Height - - Body Mass Index 29.79 11/08/2021 12:40 PM BANDER AND CELLOPHANER MACHINE documented in this encounter Progress Notes Grant [...] testing. Grant Jones APRN, Reji.NDany, M.S.N. ER AND CELLOPHANER MACHINE documented in this encounter Miscellaneous Notes Addendum Note - Grant Jones APRN, Reji.N.P., M.S.N. - 11/24/2021 1:15 PM BANDER AND CELLOPHANER MACHINE Addended by: GRANT JONES on: 11/29/2021 08:00 AM Modules accepted: Orders ER AND CELLOPHANER MACHINE documented in this encounter Plan of Treatment Not on filedocumented as of this encounter Procedures Procedure Name Priority Date/Time Associated Diagnosis Comme nts THINPREP W/HPV Routine 11/24/2021 4:49 PM Pap Smear Results for this CO-TEST SCREEN BANDER AND CELLOPHANER MACHINE Examination procedure are in the results section. HUMAN CHORIONIC Routine 11/24/2021 2:00 PM Test Resu lts for this GONADOTROPIN (HCG), BANDER AND CELLOPHANER MACHINE procedur e are in ROBERTA, the results section. HPV WITH GENOTYPING, Routine 11/24/2021 1:53 PM R esults for this PCR, THINPREP BANDER AND CELLOPHANER MACHINE procedure are in the results section. TEST, POCT, Routine 11/24/2021 1:14 PM Samira t Results for this U (LAB) BANDER AND CELLOPHANER MACHINE procedure are i n the results section. documented in this encounter Results ThinPrep w/HPV Co-Test Screen (11/24/2021 4:49 PM BANDER AND CELLOPHANER MACHINE) Component Value Ref Test Analysis Performed Pathologis t Range Method Time At Signature 11/28/2021 HK 3:47 PM BANDER AND CELLOPHANER MACHINE Report DEBRA Boles(ASCP) 11/28/2021 HK electronically 3:47 PM signed by BANDER AND CELLOPHANER MACHINE I verify that I have examined all relevant slides/materials for the specimen(s) and rendered or confirmed the diagnosis. Gross Description Received specimen 11/28/2021 HK Y in a ThinPrep 3:47 PM vial. BANDER AND CELLOPHANER MACHINE Pap Test Source Cervical/Endocervi 11/28/2021 HKCY lizbeth 3:47 PM BANDER AND CELLOPHANER MACHINE Interpretation Cervical/Endocervical ??(ThinPrep): 11/28/2021 HKCY 3:47 PM Satisfactory for Evaluation BANDER AND CELLOPHANER MACHINE Negative for Intraepithelial Lesion or Malignancy Shift [...] Laterality Varies 11/24/2021 4:49 PM 6:36 (Cervix/Endocerv BANDER AND CELLOPHANER MACHINE AM BANDER AND CELLOPHANER MACHINE ix) Narrative This result has an attachment that is no t available. Reji Polanco APRN.N.P., M.S.N. LAB PAP PATHDX ORD ERABLES Performing Organization Address City/State/ZIP Code Phon e Number [facility]- [address] [place] [address] [facility] [address] [facility] [address] [facility] (ABNORMAL) hCG (Human Chorionic Gonadotropin), Quantitative, (11/24/2021 2:00 PM BANDER AND CELLOPHANER MACHINE) athologist Signature HCG, 6.9 (H) <5 IU/L 11/24/2021 NPRG Quantitative, 2:22 PM BANDER AND CELLOPHANER MACHINE , P Comment: Biotin has been identified [...] (Blood, 11/24/2021 2:00 PM 11/24/19 2:01 Venous) BANDER AND CELLOPHANER MACHINE PM BANDER AND CELLOPHANER MACHINE Grant Jones APRN, C.N.P., M.S.N. LAB BLOOD ADD-ON Performing Organization Address City/State/ZIP Code Phon e Number [facility]- [address] [place], [place] [address] [place] [address] [place] [address] [place] [address] [place] HPV with Genotyping, PCR, ThinPrep (11/24/2021 1:53 PM BANDER AND CELLOPHANER MACHINE) athologist Signature HPV with Negative Negative 11/25/2021 MKTO Genotyping, 3:27 PM BANDER AND CELLOPHANER MACHINE ThinPrep, PCR Comment: Negative for high risk HPV by nucleic ac id amplification. ??The following high risk HPV types were not detected: 16, 18, 31, 33, 35, 39, 45, 51, 52, 56, 58, 59, 66, and 68 Specimen Anatomical Collection Method Collection Time Receive d Time (Source) Location / / Volume Laterality Varies 11/24/2021 1:53 PM 6:36 BANDER AND CELLOPHANER MACHINE AM BANDER AND CELLOPHANER MACHINE Reji Polanco APRN.N.Anna., M.S.N. LAB MICROBIOLOGY - GENERAL ORDERABLES Performing Organization Address City/[facility]/ZIP Code Phon e Number [facility]- [address] [place] [address] [place] [address] System in [place] [address] [facility] Test, POCT, Urine (lab) (11/24/2021 1:14 PM BANDER AND CELLOPHANER MACHINE) P athologist Signature Negative 11/24/2021 NPRG Test, POCT, U 1:21 PM BANDER AND CELLOPHANER MACHINE Specimen Anatomical Collection Method Collection Time Receive d Time (Source) Location / / Volume Laterality Urine (Urine, 11/24/2021 1:14 PM 11/24/19 1:14 Clean Catch) BANDER AND CELLOPHANER MACHINE PM BANDER AND CELLOPHANER MACHINE Grant Jones APRN, C.N.P., M.S.N. LAB POCT ORDERABLE S - DEVICE Performing Organization Address City/[facility]/ZIP Code Phon e Number [facility]- [address] [place] [address] [place] [address] LAB NPRG [facility] [address] documented in this encounter Visit Diagnoses Diagnosis Test - Primary Counseling Control Pap Smear Examination documented in this encounter Care Teams Corrugated Box Machine Operator Relationship Specialty Start Date End Date Ben Arce M.D. PCP - General Family Medicine 01/13/[address] [place] [phone] documented as of this encounter
--- OUTSIDE RECORDS SUMMARY | 2022-07-05 16:39 | XMS_ITS | Encounter Summary ---
:1990 Author Organization [facility] Address [address] [place] [address] Care Team Providers Name Role Phone Ben Arce M.D. Primary Care Provider Encounter Details Date Type Department Care Team Description 05/18/2021 Hospital Encounter Department of Alexander Rendon, Pain Hand Right Radiology, [facility], in [place] [address] [place], [place] [address] [place] [address] [place], [place] [phone] (Work) [phone] Social History Tobacco Use Types Packs/Day Years [...] do you attend moravian or Never 2021 spiritism services? Do you [...] at Date Recorded Female 12/02/2021 5:19 PM BAG PRINTER documented as of this encounter Medications at [...] Right documented in this encounter Care Teams Insect Control Aide Relationship Specialty Start Date End Date Ben Arce M.D. PCP - General Family Medicine 01/13/[address] [place] [address] documented as of this encounter
--- OUTSIDE RECORDS SUMMARY | 2022-07-05 16:39 | XMS_ITS | Encounter Summary ---
:1990 Author Organization [facility] Address [address] [place] [address] Care Team Providers Name Role Phone Ben Arce M.D. Primary Care Provider Encounter Details Date Type Department Care Team Description 11/24/2021 Orders Only Department of Robert, Erika Hammer, Abnormal L aboratory Obstetrics and HAND TWISTER, C.N.P., Results (Samina pendleton Dx) Gynecology in [place], [place] [address] [place] [phone] Social History Tobacco Use Types Packs/Day Years [...] do you attend methodist or Never 2021 baptism services? Do you [...] Date Recorded Female 12/02/2021 5:19 PM WOOD TILE INSTALLATION HELPER documented as of this encounter Plan of Treatment Not on filedocumented as of this encounter Results (ABNORMAL) hCG (Human Chorionic Gonadotropin), Quantitative, (11/28/2021 4:00 PM WOOD TILE INSTALLATION HELPER) P athologist Signature HCG, 94 (H) <5 IU/L 11/28/2021 NPRG Quantitative, 7:47 PM WOOD TILE INSTALLATION HELPER , P Comment: Biotin has been identified by the meir toro as a potential interfering substance. ??Higher concentr ations of biotin may be found in multivitamins, hair/nail supple ments, and workout supplements. ??If the result does not ma [facility] clinical observations, repeat testing after patient refrains fr om the use of supplements for at least 12 hours. Specimen Anatomical Collection Method Collection Time Receive d Time (Source) Location / / Volume Laterality Blood (Blood, 11/28/2021 4:00 PM 11/28/19 22 6:56 Venous) WOOD TILE INSTALLATION HELPER PM WOOD TILE INSTALLATION HELPER Erika Jones APRN, C.N.P., M.S.N. LAB BLOOD ADD-ON Performing Organization Address City/State/ZIP Code Phon e Number [facility]- [address] [place], [place] [address] [place] [address] [place] [address] [facility] [address] documented in this encounter Visit Diagnoses Diagnosis Abnormal Laboratory Results - Primary documented in this encounter Care Teams Operations Administrator Relationship Specialty Start Date End Date Ben Arce M.D. PCP - General Family Medicine 01/13/[address] [place] [phone] documented as of this encounter
--- OUTSIDE RECORDS SUMMARY | 2022-07-05 16:39 | XMS_ITS | Encounter Summary ---
:1990 Author Organization [facility] Address [address] [place] [address] Care Team Providers Name Role Phone Ben Arce M.D. Primary Care Provider Reason for Visit Reason Comments Med Refill Encounter Details Date Type Department Care Team Description 03/16/2021 Refill Department of Family Medicine Ben Maynard M.D. Med Refill in [facility] [address] [place] [phone] (Wo rk) Social History Tobacco Use Types [...] do you attend sabianist or Never 2021 mosque services? Do you [...] Date Recorded Female 12/02/2021 5:19 PM MANAGER ACTUARIAL documented as of this encounter Miscellaneous Notes Telephone Encounter - Celina Goyal RMaribellN. - 03/16/2021 11:58 AM CDT Refills must come from Dr Arce due to a Restricted program Unable to refill per protocol: Name of Medications Needing Refill: Naproxen Last Refill Date: 02/10/21 [id number], 0 refills Last / Future Appointment: 01/13/21 documented in this encounter Plan of Treatment Not on filedocumented as of this encounter Visit Diagnoses Diagnosis Pain Elbow Left documented in this encounter Care Teams Boiler Riveter Relationship Specialty Start Date End Date Ben Arce M.D. PCP - General Family Medicine 01/13/[address] [place] [address] documented as of this encounter
--- OUTSIDE RECORDS SUMMARY | 2022-07-05 16:39 | XMS_ITS | Encounter Summary ---
:1990 Author Organization [facility] Address [address] [place] [address] Care Team Providers Name Role Phone Ben Arce M.D. Primary Care Provider Reason for Visit Reason Comments Med Refill Encounter Details Date Type Department Care Team Description 05/23/2021 Refill Department of Family Medicine Ben Maynard M.D. Med Refill in [facility] [address] [place] [phone] (Wo rk) Social History Tobacco Use Types [...] do you attend voodoo or Never 2021 samaritan services? Do you [...] at Date Recorded Female 12/02/2021 5:19 PM NUMERICAL CONTROL TOOL PROGRAMMER documented as of this encounter Miscellaneous Notes Telephone Encounter - Rylie Le RMaribellMKalpesh - 05/23/2021 1:08 PM CDT Medication Name: cetirizine Last Office Visit: 05/18/21 Future Office Visit: none Last Blood Pressure: (88092) 05/18/21 Last Set of Labs: 01/13/21 Patient is restricted to Dr. Ritter for all refills documented in this encounter Plan of Treatment Not on filedocumented as of this encounter Visit Diagnoses Diagnosis Rhinitis Allergic documented in this encounter Care Teams Geological Scout Relationship Specialty Start Date End Date Ben Arce M.D. PCP - General Family Medicine 01/13/[address] [place] [address] documented as of this encounter
--- OUTSIDE RECORDS SUMMARY | 2022-07-05 16:39 | XMS_ITS | Encounter Summary ---
:1990 Author Organization [facility] Address [address] [place] [address] Care Team Providers Name Role Phone Ben Arce M.D. Primary Care Provider Reason for Visit Reason Comments Med Refill Naproxen Encounter Details Date Type Department Care Team Description 02/10/2021 Refill Department of Ben Metzger M.D. Med Refill (Naproxen) Medicine in [place] [address] [place], [place] [address] [place] [address] [place] [address] [phone] Social History Tobacco Use Types Packs/Day Years [...] do you attend scientologist or Never 2021 bahai services? Do you [...] at Date Recorded Female 12/02/2021 5:19 PM SUPPRESSION CREW LEADER documented as of this encounter Miscellaneous Notes Telephone Encounter - Kennedi Mckeon, R.M.A. - 02/10/2021 10:12 AM CDT Medication refill Naproxen Last filled 01/13/21 Last OV 01/13/21, 01/07/21 Future appointment None scheduled documented in this encounter Plan of Treatment Not on filedocumented as of this encounter Visit Diagnoses Diagnosis Pain Elbow Left documented in this encounter Care Teams Dry Cell Sealer Relationship Specialty Start Date End Date Ben Arce M.D. PCP - General Family Medicine 01/13/[address] [facility] [place] [address] documented as of this encounter
--- OUTSIDE RECORDS SUMMARY | 2022-07-05 16:39 | XMS_ITS | Encounter Summary ---
:1990 Author Organization [facility] Address [address] [place] [address] Care Team Providers Name Role Phone Ben Arce M.D. Primary Care Provider Reason for Visit Reason Comments Med Refill Encounter Details Date Type Department Care Team Description 11/24/2021 Refill Department of Family Medicine Ben Maynard M.D. Med Refill in [facility] [address] [place] [phone] (Wo rk) Social History Tobacco Use Types [...] do you attend episcopal or Never 2021 uatsdin services? Do you [...] at Date Recorded Female 12/02/2021 5:19 PM DEHYDROGENATION CONVERTER OPERATOR documented as of this encounter Plan of Treatment Not on filedocumented as of this encounter Visit Diagnoses Not on filedocumented in this encounter Care Teams Agent Broker Relationship Specialty Start Date End Date Ben Arce M.D. PCP - General Family Medicine 01/13/[address] [place] [address] documented as of this encounter
--- OUTSIDE RECORDS SUMMARY | 2022-07-05 16:39 | XMS_ITS | Encounter Summary ---
:1990 Author Organization [facility] Address [address] [place] [address] Care Team Providers Name Role Phone Ben Arce M.D. Primary Care Provider Reason for Referral Specialty Diagnoses / Procedures Referred By Contact Refer red To Contact Ben Arce M.D. [facility] Region [address] [place] [address] Referral ID Status Reason Start Date Expiration Date Visits Requ ested Visits Authorized EZE ARTIST Encounter Details Date Type Department Care Team Description 11/20/2021 Orders Only [facility] PCP [facility] Kimberly Arce M.D. [address] [place], [place] [phone] (Wo rk) Social History [...] do you attend zoroastrian or Never 2021 religion services? Do you [...] at Date Recorded Female 12/02/2021 5:19 PM TRAPEZE ARTIST documented as of this encounter Plan of Treatment Scheduled Referrals Name Type Priority Associated Order Schedule Diagnoses Covid immunization Outpatient Referral Routine Ex pected: office visit Booster 022 (Approximate), Expires: 11/20/2022 documented as of this encounter Visit Diagnoses Not on filedocumented in this encounter Care Teams Deputy Coroner Investigator Relationship Specialty Start Date End Date Ben Arce M.D. PCP - General Family Medicine 01/13/[address] [place] [phone] documented as of this encounter
--- OUTSIDE RECORDS SUMMARY | 2022-07-05 16:39 | XMS_ITS | Encounter Summary ---
:1990 Author Organization [facility] Address [address] [place] [address] Care Team Providers Name Role Phone Ben Arce M.D. Primary Care Provider Reason for Referral Outpatient (Routine) - Authorized Specialty Diagnoses / Procedures Referred By Contact Refer red To Contact Diagnoses Subdermal Implantable Contraceptive Removal Rylie Mcdowell M.D. [facility] Procedures Subdermal Contraceptive Device [facility] [place] [address] Referral ID Status Reason Start Date Expiration Date Visits V isits Requested Authorized [id number] Authorized 12/01/2021 12/01/2022 1 1 TREAT WORKER Reason for Visit Reason Comments nexplanon removal Early . LMP 10/29/21. Pt will see Dr. Swenson in [place] with [facility] for . Appointment Request (Routine) - Closed Specialty Diagnoses / Procedures Referred By Contact Refer red To Contact Obstetrics and Gynecology Referral ID Status Reason Start Date Expiration Date Visits Requ ested Visits Authorized [id number] Closed 11/29/2021 11/29/2022 1 1 Encounter Details Date Type Department Care Team Description 12/01/2021 Office Visit Department of Rylie Mcdowell Subdermal Imp lancesar Obstetrics and Minoo Contraceptive Removal Gynecology in [address] (Primary Dx) [place], [place] [address] [facility] [address] [place], [place] [phone] [address] (Work) [phone] Social History Tobacco Use Types Packs/Day Years [...] do you attend yazdanism or Never 2021 episcopal services? Do you [...] at Date Recorded Female 12/02/2021 5:19 PM HEAT TREAT WORKER documented as of this encounter Last Filed Vital Signs Vital Sign Reading Time Taken Comments Blood Pressure 155/91 12/01/2021 2:56 PM HEAT TREAT WORKER Pulse 84 12/01/2021 2:56 PM HEAT TREAT WORKER Temperature 36.2 ??C (97.2 ??F) 12/01/2021 2:56 PM HEAT TREAT WORKER Respiratory Rate - - Oxygen Saturation - - Inhaled Oxygen Concentration - - Weight 69.5 kg (153 lb 4.8 oz) 12/01/2021 2:56 PM HEAT TREAT WORKER Height - - Body Mass Index 28.94 11/08/2021 12:40 PM HEAT TREAT WORKER documented in this encounter Progress Notes Rylie Mcdowell M.D. - 12/01/2021 3:15 PM CST SUBJECTIVE CHIEF COMPLAINT / REASON FOR VISIT Chief Complaint Patient presents with ??? nexplanon removal Early . LMP 10/29/21. Pt will see Dr. Swenson in [place] with [facility] for . HISTORY OF PRESENT CONDITION [...] and Family: Twice a week ??? Attends Nondenominational Services: Never ??? Active Member of Clubs [...] levels - plan US once HCG above [id number] - Patient is following up at [facility] Diet and exercise, PNV and folate, [...] are no discontinued medications. Rylie Mcdowell M.D. TREAT WORKER documented in this encounter Procedure Notes Rylie [...] lidocaine POST-PROCEDURE DETAILS Complications: no apparent complications RESERVATIONS AGENT TREAT WORKER documented in this encounter Plan of Treatment Not on filedocumented as of this encounter Procedures Procedure Name Priority Date/Time Associated Diagnosis Comme nts ID RMVL DRUG IMPL Routine 12/01/2021 4:11 PM Subdermal Implant able Results for this HEAT TREAT WORKER Contraceptive Removal proced ure are in the results section. documented in this encounter Results ID RMVL DRUG IMPL (12/01/2021 4:11 PM HEAT TREAT WORKER) Narrative MMODAL - 12/01/2021 4:11 PM HEAT TREAT WORKER Rylie Mcdowell M.D. ? 12/01/2021 ??4:12 PM [...] Primary documented in this encounter Care Teams Web Production Artist Relationship Specialty Start Date End Date Ben Arce M.D. PCP - General Family Medicine 01/13/[address] [place] [phone] documented as of this encounter
--- OUTSIDE RECORDS SUMMARY | 2022-07-05 16:39 | XMS_ITS | Encounter Summary ---
:1990 Author Organization [facility] Address [address] [place] [address] Care Team Providers Name Role Phone Ben Arce M.D. Primary Care Provider Reason for Visit Reason Comments Sinusitis Sinus pressure / sinus drain age/ sinus congestion x 6 weeks Encounter Details Date Type Department Care Team Description 11/08/2021 [facility] [place], [facility] [address] [facility] [address] [place] [phone] Social History Tobacco Use Types Packs/Day Years [...] do you attend cheondoism or Never 2021 caodaism services? Do you [...] at Date Recorded Female 12/02/2021 5:19 PM SLAT BASKET MAKER HELPER MACHINE documented as of this encounter Last Filed Vital Signs Vital Sign Reading Time Taken Comments Blood Pressure 126/78 11/08/2021 12:40 PM SLAT BASKET MAKER HELPER MACHINE Pulse 78 11/08/2021 12:40 PM SLAT BASKET MAKER HELPER MACHINE Temperature 37 ??C (98.6 ??F) 11/08/2021 12:40 PM SLAT BASKET MAKER HELPER MACHINE Respiratory Rate 16 11/08/2021 12:40 PM SLAT BASKET MAKER HELPER MACHINE Oxygen Saturation 98% 11/08/2021 12:40 PM SLAT BASKET MAKER HELPER MACHINE Inhaled Oxygen Concentration - - Weight 72.1 kg (158 lb 14.4 oz) 11/08/2021 12:40 PM SLAT BASKET MAKER HELPER MACHINE Height 155 cm (5' 1.02) 11/08/2021 12:40 PM SLAT BASKET MAKER HELPER MACHINE Body Mass Index 30 11/08/2021 12:40 PM SLAT BASKET MAKER HELPER MACHINE documented in this encounter Patient Instructions Patient InstructionsArely Ferrell APRN, C.N.P. - 11/08/2021 12:30 PM SLAT BASKET MAKER HELPER MACHINE Steam, frequent showers to break up mucus in back of throat. Follow up if not gradually improving over the next 7-10 days or sooner if symptoms would worsen. BASKET MAKER HELPER MACHINE AttachmentsThe following attachments cannot be sent through Care Everywhere. Sinusitis (Rhinosinusitis) (Azeri)documented in this encounter Progress Notes Arely Ferrell [...] discussed and reviewed in AVS. Discharged from [facility] in stable condition. I personally spent 20 minutes in total care of the patient today. BASKET MAKER HELPER MACHINE documented in this encounter Plan of Treatment Not on filedocumented as of this encounter Visit Diagnoses Diagnosis Sinusitis - Primary documented in this encounter Care Teams Medical Records Library Professor Relationship Specialty Start Date End Date Ben Arce M.D. PCP - General Family Medicine 01/13/[address] [place] [phone] documented as of this encounter
--- OUTSIDE RECORDS SUMMARY | 2022-07-05 16:39 | XMS_ITS | Encounter Summary ---
:1990 Author Organization [facility] Address [address] [place] [address] Care Team Providers Name Role Phone Ben Arce M.D. Primary Care Provider Reason for Referral Outpatient (Routine) - Closed Specialty Diagnoses / Procedures Referred By Contact Refer red To Contact Obstetrics and Diagnoses Examination Test With Positive Result (HCC) Terrence Swenson M.D. [facility] Gynecology [address] [address] Referral ID Status Reason Start Date Expiration Date Visits Requ ested Visits Authorized [id number] Closed 12/01/2021 12/01/2022 1 1 ESSIONAL DEVELOPMENT DIRECTOR Specialty Diagnoses / Procedures Referred By Contact Refer red To Contact Terrence Swenson M.D. [facility] Region [address] [place] [phone] Referral ID Status Reason Start Date Expiration Date Visits Requ ested Visits Authorized ESSIONAL DEVELOPMENT DIRECTOR Encounter Details Date Type Department Care Team Description 12/01/2021 Clinical Communication Department of Terrence Swenson Obstetrics and Minoo Gynecology in [address] [place], [place] [address] [place] [phone] [place], [place] [phone] (Work) [phone] Social History Tobacco Use Types Packs/Day Years [...] do you attend restoration or Never 2021 nondenominational services? Do you [...] at Date Recorded Female 12/02/2021 5:19 PM PROFESSIONAL DEVELOPMENT DIRECTOR documented as of this encounter Miscellaneous [...] following references were used: Nursing Clinical Judgement ESSIONAL DEVELOPMENT DIRECTOR Telephone Encounter - Anisa White - 12/01/2021 12:26 PM CST Reason for Communication: Patient calling, had a positive home test and a clinic confirmedtest. LMP unknown. Patient is looking to transfer care from [place] Current Can Nursing/Provider leave a detailed message?: yes Did the patient refuse triage through Nurse line? (for symptom based concerns): Action Needed: Name of Medication (if relevant): Please send all scheduling replies to scheduling pool. ESSIONAL DEVELOPMENT DIRECTOR documented in this encounter Plan of [...] US OB First Trimester (12/20/2021 10:50 AM PROFESSIONAL DEVELOPMENT DIRECTOR) Anatomical Region Laterality Modality Body, Ultrasound OB RST LOS, Ultrasound ARZ LOS N/A Ultrasound Specimen (Source) Anatomical Collection Method Collection Time Re ceived Time Location / / Volume Laterality 12/20/2021 12:31 PM PROFESSIONAL DEVELOPMENT DIRECTOR Impressions 12/20/2021 12:34 PM PROFESSIONAL DEVELOPMENT DIRECTOR Single, viable, intrauterine gestation w ith CARLOS of August 14, 2022 (not consistent with menstrual dating). Narrative 12/20/2021 12:34 PM PROFESSIONAL DEVELOPMENT DIRECTOR EXAM: US OB FIRST TRIMESTER COMPARISON: None Physician: Dr. Swenson FINDINGS: Gestational age and CARLOS by LMP or OB/EHR assignment: 7 w 3 d, CARLOS: 08/05/2022 INTRAUTERINE Pole: Normal, [place]-Rump Length: 0 .50 cm Gestational Sac: [...] 3 d, CARLOS: 08/05/2022 INTRAUTERINE Pole: Normal, [place]-Rump Length: 0 .50 cm Gestational Sac: [...] (HCC) documented in this encounter Care Teams Repair Service Dispatcher Relationship Specialty Start Date End Date Ben Arce M.D. PCP - General Family Medicine 01/13/[address] [place], [place] [address] documented as of this encounter
--- OUTSIDE RECORDS SUMMARY | 2022-07-05 16:39 | XMS_ITS | Encounter Summary ---
:1990 Author Organization [facility] Address [address] [place] [address] Care Team Providers Name Role Phone Ben [...] Type Department Care Team Description 03/01/2021 Emergency [place] [facility] Valerie Malone Contu sion Head Initial (Primary Dx); Department Minoo Strain Neck Initial [address] [place] [phone] Social History Tobacco Use Types Packs/Day Years [...] do you attend rastafarian or Never 2021 advent services? Do you [...] Date Recorded Female 12/02/2021 5:19 PM CLINICAL ASSOCIATE documented as of this encounter Last [...] through Care Everywhere. Facial or Scalp Contusion (Swedish)documented in this encounter Medications at Time of [...] ondansetron ODT disintegrating tablet 4 mg (ZOFRAN-ODT) ([facility] ED) 1101 (Given - Provider: Nita Rao R.N.) 4 mg, oral, Once, On Sun03/01/21 at 1058 , For 1 dose, When splitting ODT at bedside, handle with gloves and a pill splitter to prevent moisture contact. documented in this encounter Care Teams Retail Team Leader Relationship Specialty Start Date End Date Ben Arce M.D. PCP - General Family Medicine 01/13/[address] [place] [phone] documented as of this encounter
--- OUTSIDE RECORDS SUMMARY | 2022-07-05 16:40 | XMS_ITS | Encounter Summary ---
:1990 Author Organization [facility] Address [address] [place] [address] Care Team Providers Name Role Phone Ben Arce M.D. Primary Care Provider Reason for Visit Reason Comments Other swollen and sore throat and fluid in ears right more than the left. was just here on Sunday and saw Donya for her arm Encounter Details Date Type Department Care Team Description 01/13/2021 Office Visit Department of Ben Metzger M.D. Sore Throat (Primary Medicine in [place] [address] Dx) [place], [place] [address] [place] [address] [place], [place] [phone] (Work) [phone] Social History Tobacco Use Types Packs/Day Years [...] do you attend buddhism or Never 2021 anabaptist services? Do you [...] Date Recorded Female 12/02/2021 5:19 PM COMMERCIAL GREEN BUILDING DESIGNER documented as of this encounter Last [...] Body Mass Index 31.39 12/14/2020 5:24 PM COMMERCIAL GREEN BUILDING DESIGNER documented in this encounter Progress Ben Espinal [...] City/State/ZIP Code Phon e Number [facility]- [address] [place] [address] [place] [address] [address] documented in this encounter Visit Diagnoses Diagnosis Sore Throat - Primary documented in this encounter Care Teams Adjunct Faculty Relationship Specialty Start Date End Date Ben Arce M.D. PCP - General Family Medicine 01/13/[address] [place] [phone] documented as of this encounter
--- OUTSIDE RECORDS SUMMARY | 2022-07-05 16:40 | XMS_ITS | Encounter Summary ---
:1990 Author Organization [facility] Address [address] [place] [address] Care Team Providers Name Role Phone Elsewhere, Pcp Primary Care Provider Unavailable Reason for Referral Outpatient (Routine) - Canceled Specialty Diagnoses / Procedures Referred By Contact Refer red To Contact Diagnoses Numbness Ben Arce M.D. External, Referring [address] [place] [address] Referral ID Status Reason Start Date Expiration Date Visits V isits Requested Authorized [id number] Canceled No 08/26/2019 08/25/2020 1 1 access/unsa tisfactory access Reason for Visit Reason Onset Date Comments Communication 08/26/2019 Encounter Details Date Type Department Care Team Description 08/26/2019 Clinical Communication Department of Ben Metzger , Communication Medicine in [place], [place] [address] [place] [phone] Social History Tobacco Use Types Packs/Day Years [...] do you attend sikhism or Never 2021 confucianist services? Do you belong to any clubs or No 11/20/2021 organizations such as sikhism groups, unions, fraPromobucket or athletic groups, or school groups? How [...] at Date Recorded Female 12/02/2021 5:19 PM VP documented as of this encounter Miscellaneous Notes Telephone Encounter - [place] Whittington - 08/27/2019 9:52 AM CST I will work on this. Telephone Encounter - Sridhar Espinal - 08/27/2019 8:24 AM CST [place], can you work on this please? Thank you!! Telephone Encounter - Ben Arce M.D. - 08/26/2019 3:36 PM CST External referral order placed. Please help her to find nearby neurology. None in [place], she has travel to [place] or [facility]. Thanks. Telephone Encounter - Nadya Koehler, RMaribellN. - 08/26/2019 12:19 PM VP Can an outside referral be entered for neurology for sooner appointment? Thank you. Telephone Encounter - Rylie Juárez - 08/26/2019 12:[address] Daiana Booth does not have an opening in [place] until December and [place] cannot [facility]. Can a referral be placed for a neurologist that is closer? documented in this encounter Plan of Treatment Not on filedocumented as of this encounter Visit Diagnoses Diagnosis Numbness - Primary documented in this encounter Care Teams Ceo Ziff Davis Relationship Specialty Start Date End Date Elsewhere, Pcp PCP - General Family Medicine 01/08/18 01/12/21 documented as of this encounter
--- OUTSIDE RECORDS SUMMARY | 2022-07-05 16:40 | XMS_ITS | Encounter Summary ---
:1990 Author Organization [facility] Address [address] [place] [address] Care Team Providers Name Role Phone Elsewhere, Pcp Primary Care Provider Unavailable Reason for Visit Reason Comments Wrist Pain 30 y/o f presents with R wri st and hand pain since . Pt says is sharp and radiates up her ar m, no injury, has been taking advil with some relief. Encounter Details Date Type Department Care Team Description 05/30/2020 Emergency [place] [facility] Sigrid Forbes endofrantz Forearm Department D, M.D. (Primary Dx) [address] [facility] [place] [phone] (Wo rk) Social History Tobacco Use Types [...] do you attend shinto or Never 2021 christianity services? Do you [...] Body Mass Index 30.81 12/26/2019 9:26 AM BOAT DECKHAND documented in this encounter Discharge Instructions Discharge [...] clinic by calling the appointment center at [phone]. Thank you for choosing [facility] for your care. It was a [...] Forbes M.D. - 05/30/2020 12:11 PM CDT [facility] EMERGENCY DEPARTMENT ENCOUNTER Patient Name: [...] Primary documented in this encounter Care Teams Machine Container Washer Relationship Specialty Start Date End Date Elsewhere, Pcp PCP - General Family Medicine 01/08/18 01/12/21 documented as of this encounter
--- OUTSIDE RECORDS SUMMARY | 2022-07-05 16:40 | XMS_ITS | Encounter Summary ---
:1990 Author Organization [facility] Address [address] [place] [address] Care Team Providers Name Role Phone Elsewhere, Pcp Primary Care Provider Unavailable Reason for Visit Physical Therapy (Routine) - Denied Specialty Diagnoses / Procedures Referred By Contact Refer red To Contact Diagnoses Tendonitis Loulou Teresa APRN, [facility] Procedures PT Evaluate and treat C.N.P. [address] [place] [address] Referral ID Status Reason Start Date Expiration Date Visits Requ ested Visits Authorized [id number] Denied 06/08/2020 10/21/2020 1 0 Encounter Details Date Type Department Care Team Description 06/30/2020 Comprehensive Visit Department of Physical Loulou Metz APRN, C.N.P. [address] [place] [phone] Tendonitis Elbow (Primary Dx); Medicine and Yunior Robins P.TMaribell [address] [place] [phone] Tendonitis Rehabilitation in [place], [place] [address] [place] [phone] Social History Tobacco Use Types Packs/Day Years [...] organizations such as oriental orthodox groups, unions, fraOcimum Biosolutions or athletic groups, or school groups? How [...] at Date Recorded Female 12/02/2021 5:19 PM VICE PRESIDENT RESEARCH documented as of this encounter Consult Notes [...] pain/tendinitis Onset Date: 06/08/20 Payor: [facility] [place] CARE / Plan: [facility] CARE RESTRICTED PLAN / Product Type: Medicaid HMO / [facility] Visit Count: 1 PERTINENT MEDICAL / [...] Patient works 40 hours at the local [employer]. Patient has a 7-1/2-year-old son. 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 Patient works the [...] Department of Physical Medicine and Rehabilitation in [address] [address] Dept: [phone] PRESIDENT RESEARCH documented in this encounter Plan of Treatment Not on filedocumented as of this encounter Visit Diagnoses Diagnosis Tendonitis Elbow - Primary Tendonitis documented in this encounter Care Teams Crook Operator Relationship Specialty Start Date End Date Elsewhere, Pcp PCP - General Family Medicine 01/08/18 01/12/21 documented as of this encounter
--- OUTSIDE RECORDS SUMMARY | 2022-07-05 16:40 | XMS_ITS | Encounter Summary ---
:1990 Author Organization [facility] Address [address] [place] [address] Care Team Providers Name Role Phone Elsewhere, Pcp Primary Care Provider Unavailable Reason for Visit Reason Comments Sinus Symptoms ongoing Encounter Details Date Type Department Care Team Description 07/02/2020 Office Visit Urgent Care, [facility], Sin usitis Acute [place], in [place], FATOU, C.N.P., (Samina pendleton Dx) [place] D.N.P. [address] [place] [phone] Social History Tobacco Use Types Packs/Day Years [...] Date Recorded Female 12/02/2021 5:19 PM DOUBLE BACK OPERATOR documented as of this encounter Last [...] bacteria. Still, most people seen in the [facility] for upper respiratory infectionor sinusitis [...] and replace them as recommended by the senior statistical programmer. Note: Having your humidity too high (more [...] help open sinuses and allow easier breathing. Oqkt-eut-wfzkiuc treatments* In addition to the previous suggestions, you may get relief for nasal and sinus obstruction or discomfort by taking non-prescription, zfyf-knv-glplufg (OTC) medications. Many OTC medications combine a [...] Education and Research (MER). All rights reserved. [id number] documented in this encounter Progress Notes Esther [...] has been using Flonase nasal spray and uupy-nyp-bcpnqam decongestant and Tylenol or ibuprofen for symptoms. [...] a humidifier in the room. May use zihv-wpr-ccdwpgl Flonase to help with congestion. Drink warm [...] Primary documented in this encounter Care Teams Technical Illustrator Relationship Specialty Start Date End Date Elsewhere, Pcp PCP - General Family Medicine 01/08/18 01/12/21 documented as of this encounter
--- OUTSIDE RECORDS SUMMARY | 2022-07-05 16:40 | XMS_ITS | Encounter Summary ---
:1990 Author Organization [facility] Address [address] [place] [address] Care Team Providers Name Role Phone Ben Arce M.D. Primary Care Provider Encounter Details Date Type Department Care Team Description 01/21/2021 Orders Only [facility] PCP TH Teja Zuniga Jr., M.D. [address] [place] [address] [place] [phone] (Wo rk) Social History Tobacco [...] do you attend cheondoism or Never 2021 judaism services? Do you [...] at Date Recorded Female 12/02/2021 5:19 PM BACKUP ADMINISTRATOR documented as of this encounter Plan of Treatment Not on filedocumented as of this encounter Visit Diagnoses Not on filedocumented in this encounter Care Teams Wind Turbine Mechanic Relationship Specialty Start Date End Date Ben Arce M.D. PCP - General Family Medicine 01/13/[address] [place] [phone] documented as of this encounter
--- OUTSIDE RECORDS SUMMARY | 2022-07-05 16:40 | XMS_ITS | Encounter Summary ---
:1990 Author Organization [facility] Address [address] [place] [address] Care Team Providers Name Role Phone Elsewhere, Pcp Primary Care Provider Unavailable Reason for Visit Reason Comments Facial Pain Pt presents for eval of sinu s pain, congestion, throat pain and claire ear pain. sick for 3 1/2 weeks . No known fever. Using OTC sudafed and afrin without relief. Encounter Details Date Type Department Care Team Description 09/09/2019 Emergency [facility] Sigrid Forbes (Primary Dx); Department D, M.D. Infection Upper Respiratory Viral [address] [place] [phone] [phone] (Wo rk) Social History Tobacco Use Types [...] do you attend anabaptist or Never 2021 tenriism services? Do you [...] at Date Recorded Female 12/02/2021 5:19 PM MUSIC ENGINEER documented as of this encounter Last Filed Vital Signs Vital Sign Reading Time Taken Comments Blood Pressure 135/101 09/09/2019 9:30 AM MUSIC ENGINEER Pulse 75 09/09/2019 9:30 AM MUSIC ENGINEER Temperature 36 ??C (96.8 ??F) 09/09/2019 9:30 AM MUSIC ENGINEER Respiratory Rate 18 09/09/2019 9:30 AM MUSIC ENGINEER Oxygen Saturation 96% 09/09/2019 9:30 AM MUSIC ENGINEER Inhaled Oxygen Concentration - - Weight 72.6 kg (160 lb) 09/09/2019 9:39 AM MUSIC ENGINEER Height 152.4 cm (5') 09/09/2019 9:39 AM MUSIC ENGINEER Body Mass Index 31.25 09/09/2019 9:39 AM MUSIC ENGINEER documented in this encounter Discharge Instructions Discharge InstructionsTomSigrid remy M.D. - 09/09/2019 9:41 AM MUSIC ENGINEER Return to the Emergency Department if you [...] clinic by calling the appointment center at [phone]. Thank you for choosing [facility] for your care. It was a pleasure taking care of you today in our Emergency Department. C ENGINEER AttachmentsThe following attachments cannot be sent through Care Everywhere. Sinus Rinse Qmxu-hh-Dkcc (Wolof)Sinusitis Adult Brgm-gr-Wggp (Wolof) documented in this encounter Medications at Time [...] Forbes M.D. 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 09/09/19946 C ENGINEER documented in this encounter Plan of Treatment Not on filedocumented as of this encounter Visit Diagnoses Diagnosis Sinusitis - Primary Infection Upper Respiratory Viral documented in this encounter Care Teams Linotype Machinist Relationship Specialty Start Date End Date Elsewhere, Pcp PCP - General Family Medicine 01/08/18 01/12/21 documented as of this encounter
--- OUTSIDE RECORDS SUMMARY | 2022-07-05 16:40 | XMS_ITS | Encounter Summary ---
:1990 Author Organization [facility] Address [address] [place] [address] Care Team Providers Name Role Phone Elsewhere, Pcp Primary Care Provider Unavailable Reason for Referral Outpatient (Routine) - Closed Specialty Diagnoses / Procedures Referred By Contact Refer red To Contact Neurology Diagnoses Contusion Leg Initial Left Numbness eBn Arce M.D. [facility] Region [address] [place] [address] Referral ID Status Reason Start Date Expiration Date Visits V isits Requested Authorized [id number] Closed Specialty 08/11/2019 08/10/2020 1 1 Services Required Reason for Visit Reason Comments Follow-up ED 08/01 [facility] Outpatient (Routine) - Closed Specialty Diagnoses / Procedures Referred By Contact Refer red To Contact Emergency Medicine Diagnoses Pain Neck Strain Neck Initial Contusion Leg Initial Left Derrek Leon M.D. [facility] Region [facility] [place] [address] Referral ID Status Reason Start Date Expiration Date Visits Requ ested Visits Authorized [id number] Closed 08/01/2019 07/31/2020 1 1 Encounter Details Date Type Department Care Team Description 08/11/2019 Office Visit Department of Ben Metzger M.D. Pain Neck (Primary Dx); Medicine in [facility] [address] Strain Neck Initial; [place], [place] Contusion Leg Initial Left; [address] [place] [address] Numbness [place], [place] [phone] (Work) [phone] Social History Tobacco Use Types Packs/Day Years [...] you attend jehovah's witness or Never 2021 jainism services? Do you [...] Date Recorded Female 12/02/2021 5:19 PM MANAGER SOCIAL SERVICES documented as of this encounter Last Filed [...] Numbness documented in this encounter Care Teams Chicken Boner Relationship Specialty Start Date End Date Elsewhere, Pcp PCP - General Family Medicine 01/08/18 01/12/21 documented as of this encounter
--- OUTSIDE RECORDS SUMMARY | 2022-07-05 16:40 | XMS_ITS | Encounter Summary ---
:1990 Author Organization [facility] Address [address] [place] [address] Care Team Providers Name Role Phone Elsewhere, Pcp Primary Care Provider Unavailable Reason for Referral MRI/CAT/PET Scan (Routine) - Closed Specialty Diagnoses / Procedures Referred By Contact Refer red To Contact Radiology Diagnoses Pain Cervical Esther Andrea APRN, [facility] Region Procedures CT Thoracic Spine without IV Contrast C.N.P., D.N.P. [address] [place] [address] Referral ID Status Reason Start Date Expiration Date Visits Requ ested Visits Authorized [id number] Closed 08/01/2019 07/31/2020 1 1 Reason for Visit MRI/CAT/PET Scan (Routine) - Closed Specialty Diagnoses / Procedures Referred By Contact Refer red To Contact Radiology Diagnoses Pain Cervical Emre, FATOU Santana, [facility] Region Procedures CT Thoracic Spine without IV Contrast C.N.P., D.N.P. [address] [place] [address] Referral ID Status Reason Start Date Expiration Date Visits Requ ested Visits Authorized [id number] Closed 08/01/2019 07/31/2020 1 1 Encounter Details Date Type Department Care Team Description 08/01/2019 Hospital Encounter Department of Radiology Eliazar Andrea, Pain Cervical in [place] APRN C.N.P., [address] [facility] D.N.[place]. [place], [place] [address] [place] [address] [place], [place] [phone] Social History Tobacco Use Types Packs/Day [...] do you attend denominational or Never 2021 sabianism services? Do you [...] at Date Recorded Female 12/02/2021 5:19 PM POISER BALANCE documented as of this encounter Medications at [...] Cervical documented in this encounter Care Teams Towel Hemmer Relationship Specialty Start Date End Date Elsewhere, Pcp PCP - General Family Medicine 01/08/18 01/12/21 documented as of this encounter
--- OUTSIDE RECORDS SUMMARY | 2022-07-05 16:40 | XMS_ITS | Encounter Summary ---
:1990 Author Organization [facility] Address [address] [place] [address] Care Team Providers Name Role Phone Elsewhere, Pcp Primary Care Provider Unavailable Reason for Referral Outpatient (Routine) - Closed Specialty Diagnoses / Procedures Referred By Contact Refer red To Contact Diagnoses [facility] Ben Arce M.D. [address] [place] [address] Referral ID Status Reason Start Date Expiration Visits Visits Date Requested Authorized [id number] Closed Continuity of 10/06/2020 10/06/2021 1 1 Care T OFFICE JAVA DEVELOPER Reason for Visit Reason Comments Communication referral Encounter Details Date Type Department Care Team Description 10/06/2020 Clinical Communication Department of Ben Arce Comm unication Family Medicine in [place] (referral ) [place] [address] [facility] [address] [facility] [phone] Social History Tobacco Use Types Packs/Day Years [...] do you attend advent or Never 2021 anabaptism services? Do you [...] at Date Recorded Female 12/02/2021 5:19 PM FRONT OFFICE JAVA DEVELOPER documented as of this encounter Miscellaneous Notes Telephone Encounter - Wilma Montelongo R.N. - 10/06/2020 4:17 PM CST Pt advised that referral was faxed to [facility]: [phone] T OFFICE JAVA DEVELOPER Telephone Encounter - Ben Arce M.D. - 10/06/2020 2:55 PM CST External referral order placed. Please fax for patient. Thanks. It should be printed in the office printer. Thanks. T OFFICE JAVA DEVELOPER Telephone Encounter - Ilene Gautam - 10/06/2020 [...] to send referral for her to see [facility] Dentist in [place]. She is on a restricted program through insurance and they will only cover this if referred by Dr. Arce. She is having a tooth pulled on Sunday. Please fax to fax #[phone]. Please call her to let her know if this is done. Thank you. I will send this information to the appropriate staff member who will look into your concern. Is there anything else I can help you with today? Thank you for calling [facility]. T OFFICE JAVA DEVELOPER documented in this encounter Plan of Treatment Not on filedocumented as of this encounter Visit Diagnoses Diagnosis [facility] - Primary documented in this encounter Care Teams High Pressure Kettle Operator Relationship Specialty Start Date End Date Elsewhere, Pcp PCP - General Family Medicine 01/08/18 01/12/21 documented as of this encounter
--- OUTSIDE RECORDS SUMMARY | 2022-07-05 16:40 | XMS_ITS | Encounter Summary ---
:1990 Author Organization [facility] Address [address] [place] [address] Care Team Providers Name Role Phone Elsewhere, Pcp Primary Care Provider Unavailable Encounter Details Date Type Department Care Team Description 01/07/2021 Hospital Encounter Department of Renae, Zack Hammer, Pain Elbow Left Radiology, [facility] [place] [facility], in [place] [address] [place], [place] [address] [place] [address] [place], [place] [phone] (Work) [phone] Social History Tobacco Use Types Packs/Day Years [...] do you attend buddhist or Never 2021 evangelical services? Do you [...] at Date Recorded Female 12/02/2021 5:19 PM GROUND CREW SUPERVISOR documented as of this encounter Medications [...] Left documented in this encounter Care Teams Machine Shorthand Reporter Relationship Specialty Start Date End Date Elsewhere, Pcp PCP - General Family Medicine 01/08/18 01/12/21 documented as of this encounter
--- OUTSIDE RECORDS SUMMARY | 2022-07-05 16:40 | XMS_ITS | Encounter Summary ---
:1990 Author Organization [facility] Address [address] [place] [address] Care Team Providers Name Role Phone Elsewhere, Pcp Primary Care Provider Unavailable Reason for Referral Outpatient (Routine) - Closed Specialty Diagnoses / Procedures Referred By Contact Refer red To Contact Family Medicine Donya Lind APRN, [facility] C.N.P., D.N.P. Referral ID Status Reason Start Date Expiration Date Visits Requ ested Visits Authorized [id number] Closed 01/07/2021 01/07/2022 1 1 Reason for Visit Reason Comments Follow-up Follow up Elbow Encounter Details Date Type Department Care Team Description 01/07/2021 Office Visit Department of Donya Fitzgerald Pain Elbow Left (Primary Dx); Medicine in [facility] FATOU Lu C.N.PMaribell, Rhinitis Allergic [place], [place] D.N.P. [address] [place] [address] Social History Tobacco Use Types Packs/Day Years [...] do you attend baptism or Never 2021 sabianism services? Do you [...] at Date Recorded Female 12/02/2021 5:19 PM WEIGHER AND CHARGER documented as of this encounter Last Filed [...] Body Mass Index 31.21 12/14/2020 5:24 PM WEIGHER AND CHARGER documented in this encounter Progress Notes Donya [...] meds for pain management. She works at [employer] and has continued to wear sling at [...] plan of care as outlined. Donya Lind, VETERINARY TECHNICIAN ASSISTANT, DNP documented in this encounter Plan of Treatment Scheduled Referrals Name Type Priority Associated Diagnoses [facility] Outpatient Referral Routine Expec taurus: office visit 02/07/2021 (clinic) (Approximate), Expires: 01/08/2024 documented as of this encounter Visit Diagnoses Diagnosis Pain Elbow Left - Primary Rhinitis Allergic documented in this encounter Care Teams Pin Inserter Relationship Specialty Start Date End Date Elsewhere, Pcp PCP - General Family Medicine 01/08/18 01/12/21 documented as of this encounter
--- OUTSIDE RECORDS SUMMARY | 2022-07-05 16:40 | XMS_ITS | Encounter Summary ---
:1990 Author Organization [facility] Address [address] [place] [address] Care Team Providers Name Role Phone Elsewhere, Pcp Primary Care Provider Unavailable Reason for Visit Reason Comments Hand Injury pt presents with injury to l eft hand, pt states she was holding onto a door knob yesterday at work when someone pushed the door open and smashed her hand Swelling noted. Encounter Details Date Type Department Care Team Description 12/26/2019 Emergency [place] [facility] Sigird Forbes ontusion Hand Initial Department Minoo Cervantes Left (Primary Dx) [address] [facility] [place] [phone] (Wo rk) Social History Tobacco Use Types [...] do you attend rastafarian or Never 2021 zoroastrian services? Do you [...] Date Recorded Female 12/02/2021 5:19 PM CLINICAL QUALITY ANALYST documented as of this encounter Last Filed Vital Signs Vital Sign Reading Time Taken Comments Blood Pressure 128/90 12/26/2019 10:18 AM CLINICAL QUALITY ANALYST Pulse 78 12/26/2019 10:18 AM CLINICAL QUALITY ANALYST Temperature 37 ??C (98.6 ??F) 12/26/2019 10:18 AM CLINICAL QUALITY ANALYST Respiratory Rate 16 12/26/2019 10:18 AM CLINICAL QUALITY ANALYST Oxygen Saturation 100% 12/26/2019 10:18 AM CLINICAL QUALITY ANALYST Inhaled Oxygen Concentration - - Weight 70.8 kg (156 lb 1.4 oz) 12/26/2019 9:26 AM CLINICAL QUALITY ANALYST Height 155 cm (5' 1.02) 12/26/2019 9:26 AM CLINICAL QUALITY ANALYST Body Mass Index 29.47 12/26/2019 9:26 AM CLINICAL QUALITY ANALYST documented in this encounter Discharge Instructions Discharge InstructionsToSigrid geronimo M.D. - 12/26/2019 9:47 AM CLINICAL QUALITY ANALYST Return to the Emergency Department with any [...] clinic by calling the appointment center at [phone]. Thank you for choosing [facility] for your care. It was a pleasure taking care of you today in our Emergency Department. ICAL QUALITY ANALYST documented in this encounter Medications at Time [...] Forbes M.D. - 12/26/2019 9:37 AM CST [facility] EMERGENCY DEPARTMENT ENCOUNTER Patient Name: [...] AM Sigrid Forbes M.D. 12/26/19 1052 ICAL QUALITY ANALYST documented in this encounter Plan of Treatment Not on filedocumented as of this encounter Procedures Procedure Name Priority Date/Time Associated Comments Diagnosis DX HAND LEFT 3 RAD - Semiurgent 12/26/2019 9:39 Result s for this VIEWS (Fast; most ED AM CLINICAL QUALITY ANALYST procedure are in patients; some the results inpatients) section. documented in this encounter Results DX Hand Left 3 Views (12/26/2019 9:39 AM CLINICAL QUALITY ANALYST) Anatomical Region Laterality Modality Upper Extremity, Hand, Musculoskeletal RST LOS, Left Digital Radiography Musculoskeletal ARZ LOS, Muskuloskeletal FLA LOS Specimen (Source) Anatomical Collection Method Collection Time Re ceived Time Location / / Volume Laterality 12/26/2019 9:40 AM CLINICAL QUALITY ANALYST Impressions 12/26/2019 9:41 AM CLINICAL QUALITY ANALYST No acute radiographic abnormalities are demonstrated. Narrative 12/26/2019 9:41 AM CLINICAL QUALITY ANALYST EXAM: DX HAND LEFT 3 VIEWS COMPARISON: [...] Primary documented in this encounter Care Teams Hogshead Hooper Relationship Specialty Start Date End Date Elsewhere, Pcp PCP - General Family Medicine 01/08/18 01/12/21 documented as of this encounter
--- OUTSIDE RECORDS SUMMARY | 2022-07-05 16:40 | XMS_ITS | Encounter Summary ---
:1990 Author Organization [facility] Address [address] [place] [address] Care Team Providers Name Role Phone Elsewhere, Pcp Primary Care Provider Unavailable Encounter Details Date Type Department Care Team Description 01/07/2021 Clinical Communication Department of [facility] Donya Lind [facility] in [facility], C.N.P.[place], [place] D.N.P. [address] [place] [phone] Social History Tobacco Use Types Packs/Day Years [...] do you attend mormon or Never 2021 gnosticist services? Do you [...] at Date Recorded Female 12/02/2021 5:19 PM LAUNDRY ROOM ATTENDANT documented as of this encounter Miscellaneous [...] patient Please call [place] before patient arrives... [phone] documented in this encounter Plan of Treatment Not on filedocumented as of this encounter Visit Diagnoses Not on filedocumented in this encounter Care Teams Sorter Laundry Articles Relationship Specialty Start Date End Date Elsewhere, Pcp PCP - General Family Medicine 01/08/18 01/12/21 documented as of this encounter
--- OUTSIDE RECORDS SUMMARY | 2022-07-05 16:40 | XMS_ITS | Encounter Summary ---
:1990 Author Organization [facility] Address [address] [place] [address] Care Team Providers Name Role Phone Elsewhere, Pcp Primary Care Provider Unavailable Reason for Visit Reason Comments Sinusitis Encounter Details Date Type Department Care Team Description 01/10/2020 Office Visit Urgent Care, [facility], Sin usitis Acute [place], in [place], FATOU, C.N.P., (Samina pendleton Dx) [place] D.N.P. [address] [place] [address] [phone] Social History Tobacco Use Types Packs/Day Years [...] do you attend cheondoism or Never 2021 gnosticist services? Do you [...] at Date Recorded Female 12/02/2021 5:19 PM INTRAOPERATIVE NEURO TECH documented as of this encounter Last Filed [...] Body Mass Index 30.4 12/26/2019 9:26 AM INTRAOPERATIVE NEURO TECH documented in this encounter Patient Instructions Patient [...] bacteria. Still, most people seen in the [facility] for upper respiratory infectionor sinusitis symptoms [...] and replace them as recommended by the clinical services professional. Note: Having your humidity too high (more [...] help open sinuses and allow easier breathing. Teqw-uei-ldsbtan treatments* In addition to the previous suggestions, you may get relief for nasal and sinus obstruction or discomfort by taking non-prescription, tpwr-iuk-zatrvgp (OTC) medications. Many OTC medications combine a [...] [facility] ([facility]). All rights reserved. [id number] documented in this encounter Progress Notes Esther [...] Primary documented in this encounter Care Teams Care Analyst Relationship Specialty Start Date End Date Elsewhere, Pcp PCP - General Family Medicine 01/08/18 01/12/21 documented as of this encounter
--- OUTSIDE RECORDS SUMMARY | 2022-07-05 16:40 | XMS_ITS | Encounter Summary ---
:1990 Author Organization [facility] Address [address] [place] [address] Care Team Providers Name Role Phone Elsewhere, Pcp Primary Care Provider Unavailable Reason for Visit Reason Comments Earache Encounter Details Date Type Department Care Team Description 01/02/2021 Nurse Triage Department of [facility] Angella Herbert, Ear ache Medicine in [place], M.S.N., R.N. [place] [address] [place] [address] Social History Tobacco Use Types Packs/Day [...] you attend oriental orthodox or Never 2021 hinduism services? Do you [...] Recorded Female 12/02/2021 5:19 PM STUDENT SERVICES REPRESENTATIVE documented as of this encounter Miscellaneous Notes [...] medication (e.g., ibuprofen or acetaminophen) Protocols used: [id number]-PI Care Advice Patient/Caregiver understands and will follow care advice?: Yes, able to teach back SEE PCP WITHIN 4 HOURS (OR PCP TRIAGE): * IF OFFICE WILL BE OPEN: You need to be seen within the next 3 or 4 hours. Call your doctor (or HOME SUPERVISOR/PA) now or as soon as the office [...] need to be seen. Your doctor (or HOME SUPERVISOR/PA) will want to talk with you to [...] filedocumented in this encounter Care Teams Welder Explosion Relationship Specialty Start Date End Date Elsewhere, Pcp PCP - General Family Medicine 01/08/18 01/12/21 documented as of this encounter
--- OUTSIDE RECORDS SUMMARY | 2022-07-05 16:40 | XMS_ITS | Encounter Summary ---
:1990 Author Organization [facility] Address [address] [place] [address] Care Team Providers Name Role Phone Elsewhere, Pcp Primary Care Provider Unavailable Reason for Visit Reason Comments Pain In Limb Follow up on left elbow Outpatient (Routine) - Closed Specialty Diagnoses / Procedures Referred By Contact Refer red To Contact Family Medicine Zack Macdonald M.D. [facility] Region [address] [place] [address] Referral ID Status Reason Start Date Expiration Date Visits Requ ested Visits Authorized [id number] Closed 12/16/2020 12/16/2021 1 1 Encounter Details Date Type Department Care Team Description 12/24/2020 Office Visit Department of Donya Fitzgerald Pain Elbow Left Medicine in [facility], FATOU, C.N.P., (Primary Dx) [place], [place] D.N.P. [address] [place] [phone] Social History Tobacco Use Types Packs/Day Years [...] do you attend holiness or Never 2021 episcopal services? Do you [...] at Date Recorded Female 12/02/2021 5:19 PM INTERNAL MEDICINE PHYSICIAN ASSISTANT documented as of this encounter Last Filed Vital Signs Vital Sign Reading Time Taken Comments Blood Pressure 128/80 12/24/2020 3:26 PM INTERNAL MEDICINE PHYSICIAN ASSISTANT Pulse 80 12/24/2020 3:26 PM INTERNAL MEDICINE PHYSICIAN ASSISTANT Temperature 36.4 ??C (97.5 ??F) 12/24/2020 3:26 PM INTERNAL MEDICINE PHYSICIAN ASSISTANT Respiratory Rate - - Oxygen Saturation 97% 12/24/2020 3:26 PM INTERNAL MEDICINE PHYSICIAN ASSISTANT Inhaled Oxygen Concentration - - Weight 72.1 kg (158 lb 15.2 oz) 12/24/2020 3:26 PM INTERNAL MEDICINE PHYSICIAN ASSISTANT Height - - Body Mass Index 31.21 12/14/2020 5:24 PM INTERNAL MEDICINE PHYSICIAN ASSISTANT documented in this encounter Progress Notes [...] plan of care. Donya Lind, MIGUELANGEL, DNP RNAL MEDICINE PHYSICIAN ASSISTANT documented in this encounter Plan of Treatment Not on filedocumented as of this encounter Visit Diagnoses Diagnosis Pain Elbow Left - Primary documented in this encounter Care Teams Cinder Crane Operator Relationship Specialty Start Date End Date Elsewhere, Pcp PCP - General Family Medicine 01/08/18 01/12/21 documented as of this encounter
--- OUTSIDE RECORDS SUMMARY | 2022-07-05 16:40 | XMS_ITS | Encounter Summary ---
:1990 Author Organization [facility] Address [address] [place] [address] Care Team Providers Name Role Phone Elsewhere, Pcp Primary Care Provider Unavailable Reason for Referral Outpatient (Routine) - Closed Specialty Diagnoses / Procedures Referred By Contact Refer red To Contact Family Medicine Zack Macdonald M.D. [facility] Region [address] [place] [address] Referral ID Status Reason Start Date Expiration Date Visits Requ ested Visits Authorized [id number] Closed 12/16/2020 12/16/2021 1 1 OR CLINICIAN Reason for Visit Reason Comments Follow-up arm injury Encounter Details Date Type Department Care Team Description 12/16/2020 Office Visit Department of Family Zack Macdonald, Pain Elbow Left Medicine in Jaswinder Hennessy (Primary Dx) [place], [place] [address] [place] [phone] Social History Tobacco Use Types Packs/Day Years [...] do you attend catholic or Never 2021 bahai services? Do you belong to any clubs or No 11/20/2021 organizations such as catholic groups, unions, fraGoodman Networks or athletic groups, or school groups? [...] Date Recorded Female 12/02/2021 5:19 PM SENIOR CLINICIAN documented as of this encounter Last Filed Vital Signs Vital Sign Reading Time Taken Comments Blood Pressure 126/92 12/16/2020 3:16 PM SENIOR CLINICIAN Pulse 78 12/16/2020 3:11 PM SENIOR CLINICIAN Temperature 36.2 ??C (97.2 ??F) 12/16/2020 3:11 PM SENIOR CLINICIAN Respiratory Rate - - Oxygen Saturation 97% 12/16/2020 3:11 PM SENIOR CLINICIAN Inhaled Oxygen Concentration - - Weight 72.1 kg (158 lb 14.4 oz) 12/16/2020 3:11 PM SENIOR CLINICIAN Height - - Body Mass Index 31.2 12/14/2020 5:24 PM SENIOR CLINICIAN documented in this encounter Patient Instructions Patient InstructionsZack Macdonald M.D. - 12/16/2020 3:30 PM CST 1. Make an appointment in 3 weeks for follow-up. 2. Sling as needed for comfort. 3. Continue to work on range of motion with the shoulder and elbow. 4. Tylenol or ibuprofen as needed for discomfort. OR CLINICIAN documented in this encounter Progress Notes Zack [...] Tylenol or ibuprofen as needed for discomfort. OR CLINICIAN documented in this encounter Plan of Treatment Scheduled Referrals Name Type Priority Associated Diagnoses Order S [facility] Outpatient Referral Routine Expec taurus: [...] Left documented in this encounter Care Teams Horse Stud Manager Relationship Specialty Start Date End Date Elsewhere, Pcp PCP - General Family Medicine 01/08/18 01/12/21 documented as of this encounter
--- OUTSIDE RECORDS SUMMARY | 2022-07-05 16:40 | XMS_ITS | Encounter Summary ---
:1990 Author Organization [facility] Address [address] [place] [address] Care Team Providers Name Role Phone Elsewhere, Pcp Primary Care Provider Unavailable Reason for Visit MRI/CAT/PET Scan (Routine) - Closed Specialty Diagnoses / Procedures Referred By Contact Refer red To Contact Radiology Diagnoses Pain Cervical Esther Andrea, PROPERTY OFFICER, [facility] Region Procedures CT Cervical Spine without IV Contrast C.N.P., D.N.P. [address] [place] [address] Referral ID Status Reason Start Date Expiration Date Visits Requ ested Visits Authorized [id number] Closed 08/01/2019 07/31/2020 1 1 Encounter Details Date Type Department Care Team Description 08/01/2019 Hospital Encounter Department of Radiology Eliazar Andrea britt, in [facility] FATOU, C.N.P., [address] [place] D.N.P. [place], [place] [phone] [place] [phone] [place] [phone] Social History Tobacco Use Types Packs/Day Years [...] do you attend protestant or Never 2021 methodist services? Do you belong to any clubs or No 11/20/2021 organizations such as protestant groups, unions, fraAnaplan or athletic groups, or school groups? How [...] Date Recorded Female 12/02/2021 5:19 PM PRESS WORKER HELPER documented as of this encounter Medications at [...] N/A Computed Tomography ARZ LOS, Neuroradiology FLA [facility] Specimen (Source) Anatomical Collection Method Collection [...] in this encounter Care Teams Director Of Epidemiology Relationship Specialty Start Date End Date Elsewhere, Pcp PCP - General Family Medicine 01/08/18 01/12/21 documented as of this encounter
--- OUTSIDE RECORDS SUMMARY | 2022-07-05 16:40 | XMS_ITS | Encounter Summary ---
:1990 Author Organization [facility] Address [address] [place] [address] Care Team Providers Name Role Phone Elsewhere, Pcp Primary Care Provider Unavailable Reason for Visit Reason Comments Vomiting Pt presents w/nausea, vomiti ng and diarrhea onset 2300 yesterday. Encounter Details Date Type Department Care Team Description 11/11/2019 Emergency [place] [facility] Sigrid Forbes ausea And Vomiting (Primary Dx); Department D, M.D. Diarrhea [address] [place] [phone] (Wo rk) Social History Tobacco Use Types [...] do you attend presybeterian or Never 2021 voodoo services? Do you [...] at Date Recorded Female 12/02/2021 5:19 PM PATTERN MAKER PROGRAMER documented as of this encounter Last Filed Vital Signs Vital Sign Reading Time Taken Comments Blood Pressure 112/79 11/11/2019 7:01 AM PATTERN MAKER PROGRAMER Pulse 81 11/11/2019 7:01 AM PATTERN MAKER PROGRAMER Temperature 36.4 ??C (97.5 ??F) 11/11/2019 7:01 AM PATTERN MAKER PROGRAMER Respiratory Rate 16 11/11/2019 7:01 AM PATTERN MAKER PROGRAMER Oxygen Saturation 93% 11/11/2019 7:01 AM PATTERN MAKER PROGRAMER Inhaled Oxygen Concentration - - Weight 71.8 kg (158 lb 4.6 oz) 11/11/2019 5:50 AM PATTERN MAKER PROGRAMER Height 152.4 cm (5') 11/11/2019 5:50 AM PATTERN MAKER PROGRAMER Body Mass Index 30.91 11/11/2019 5:50 AM PATTERN MAKER PROGRAMER documented in this encounter Discharge Instructions Discharge InstructionsToSigrid geronimo M.D. - 11/11/2019 6:51 AM PATTERN MAKER PROGRAMER Return to the Emergency Department/ if he [...] clinic by calling the appointment center at [phone]. Thank you for choosing [facility] for your care. It was a pleasure taking care of you today in our Emergency Department. ERN MAKER PROGRAMER AttachmentsThe following attachments cannot be sent through Care Everywhere. Nausea and Vomiting Adult (Citizen Of [place])Diarrhea Adult [id number]-Yjel (Citizen Of [place]) documented in this encounter Medications at Time [...] Forbes M.D. - 11/11/2019 6:16 AM CST [facility] EMERGENCY DEPARTMENT ENCOUNTER Patient Name: Lulu Mata PCP: Primary Care Physician SUBJECTIVE CHIEF COMPLAINT/REASON FOR VISIT Vomiting (Pt presents w/nausea, vomiting and diarrhea onset 2300 yesterday.) HISTORY OF PRESENT ILLNESS Lulu Mata is a 29 y.o. female with a history of asthma presenting with 7 hours of vomiting and diarrhea. She ate dinner at the [employer] last night. Several different types of food [...] felt well before eating dinner at the [employer]. She denies any recentabdominal pain, no prior [...] Forbes M.D. 11/11/19650 Sigrid Forbes M.D. 11/11/19654 ERN MAKER PROGRAMER documented in this encounter Plan of Treatment Not on filedocumented as of this encounter Visit Diagnoses Diagnosis Nausea And Vomiting - Primary Diarrhea documented in this encounter Administered Medications Inactive Administered Medications - up to 3 most recent administrations Medication Order MAR Action Action Date Dose Rate Site ondansetron ODT disintegrating Given 11/11/2019 6:10 AM PATTERN MAKER PROGRAMER 8 mg tablet 8 mg (ZOFRAN-ODT) 8 mg, oral, Once, On Sun11/11/19 at 0605, For 1 dose, When splitting ODT at bedside, handle with gloves and a pill splitter to prevent moisture contact. documented in this encounter Active and Recently Administered Medications Times are shown in PATTERN MAKER PROGRAMER. Scheduled Medication Order 11/09/2019 11/10/2019 11/11/2019 ondansetron ODT disintegrating tablet 8 mg (ZOFRAN-ODT) ([facility] ED) 0610 (Given - Provider: Tara Brock R.N.) 8 mg, oral, Once, On Sun11/11/19 at 0605 , For 1 dose, When splitting ODT at bedside, handle with gloves and a pill splitter to prevent moisture contact. documented in this encounter Care Teams Production Dispatcher Relationship Specialty Start Date End Date Elsewhere, Pcp PCP - General Family Medicine 01/08/18 01/12/21 documented as of this encounter
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
--- OUTSIDE RECORDS SUMMARY | 2022-07-05 16:40 | XMS_ITS | Encounter Summary ---
:1990 Author Organization [facility] Address [address] [place] [address] Care Team Providers Name Role Phone Elsewhere, Pcp Primary Care Provider Unavailable Reason for Referral Outpatient (Routine) - Closed Specialty Diagnoses / Procedures Referred By Contact Refer red To Contact Emergency Medicine Diagnoses Pain Neck Strain Neck Initial Contusion Leg Initial Left Derrek Leon M.D. [facility] Region [address] [place] [address] Referral ID Status Reason Start Date Expiration Date Visits Requ ested Visits Authorized [id number] Closed 08/01/2019 07/31/2020 1 1 Reason for Visit Reason Comments Neck Pain Pt presents from Urgent care for evaluation of neck pain and tingling of left leg. Encounter Details Date Type Department Care Team Description 08/01/2019 Emergency [place] [facility] Derrek Leon Pa in Neck (Primary Dx); Department M.DMaribell Strain Neck Initial; [address] [facility] [facility] Contusion Leg Initial Left; [place], [place] Paresthesias Feet [phone] Social History Tobacco Use Types Packs/Day [...] do you attend quaker or Never 2021 yarsani services? Do you [...] at Date Recorded Female 12/02/2021 5:19 PM INSERTING MACHINE OPERATOR documented as of this [...] be sent through Care Everywhere. Muscle Strain (Luxembourger)Cervical Sprain (Luxembourger)Contusion (Luxembourger)documented in this encounter Medications at Time of [...] Feet documented in this encounter Care Teams Continuous Process Coffee Roaster Relationship Specialty Start Date End Date Elsewhere, Pcp PCP - General Family Medicine 01/08/18 01/12/21 documented as of this encounter
--- OUTSIDE RECORDS SUMMARY | 2022-07-05 16:40 | XMS_ITS | Encounter Summary ---
:1990 Author Organization [facility] Address [address] [place] [address] Care Team Providers Name Role Phone Elsewhere, Pcp Primary Care Provider Unavailable Reason for Referral Physical Therapy (Routine) - Denied Specialty Diagnoses / Procedures Referred By Contact Refer red To Contact Diagnoses Tendonitis Loulou Teresa APRN, [facility] Procedures PT Evaluate and treat C.N.P. [address] [place] [address] Referral ID Status Reason Start Date Expiration Date Visits Requ ested Visits Authorized [id number] Denied 06/08/2020 10/21/2020 1 0 Reason for Visit Reason Comments Post Ed Visit Follow-up Encounter Details Date Type Department Care Team Description 06/08/2020 Office Visit Department of [facility] Loulou Teresa Te ndonitis (Primary Medicine in [facility] DIRECTOR GLOBAL MEDICAL AFFAIRS, C.N.P. Dx) [place], [place] [address] [place] [phone] Social History Tobacco Use Types Packs/Day Years [...] do you attend alevism or Never 2021 pentecostalism services? Do you [...] at Date Recorded Female 12/02/2021 5:19 PM WING COMMANDER documented as of this encounter Last Filed [...] Primary documented in this encounter Care Teams Automation Controls Engineer Relationship Specialty Start Date End Date Elsewhere, Pcp PCP - General Family Medicine 01/08/18 01/12/21 documented as of this encounter
--- OUTSIDE RECORDS SUMMARY | 2022-07-05 16:40 | XMS_ITS | Encounter Summary ---
:1990 Author Organization [facility] Address [address] [place] [address] Care Team Providers Name Role Phone Elsewhere, Pcp Primary Care Provider Unavailable Reason for Visit Reason Comments Amox Encounter Details Date Type Department Care Team Description 10/05/2020 Clinical Communication Department of Family Aguila Arias M.D. [facility] Medicine in [place] [address] [place], [place] [address] [facility] [address] [place], [place] [phone] (Work) [phone] Social History Tobacco Use Types Packs/Day Years [...] do you attend lutheran or Never 2021 yazidi services? Do you [...] at Date Recorded Female 12/02/2021 5:19 PM VETERINARY SURGEON documented as of this encounter Miscellaneous Notes Addendum Note - Aguila Arce M.D. - 10/05/2020 4:11 PM VETERINARY SURGEON Addended by: AGUILA ARCE on: 10/05/2020 04:11 PM Modules accepted: Orders RINARY SURGEON Addendum Note - Dali Bird R.M.A. - 10/05/2020 4:09 PM VETERINARY SURGEON Addended by: DALI BIRD on: 10/05/2020 04:09 PM Modules accepted: Orders RINARY SURGEON Telephone Encounter - Dali Bird R.M.A. - 10/05/2020 4:03 PM VETERINARY SURGEON Pt's sister is calling on behalf of sister stating that she is restricted to Dr Arce and needs her amox filled. She saw the dentist today, Dr Kelsea Gamino and he prescribed Amox 500 mg. Take 2 tabs STAT and one tab TID till gone #31. RINARY SURGEON documented in this encounter Plan of Treatment Not on filedocumented as of this encounter Visit Diagnoses Not on filedocumented in this encounter Care Teams Cashier Assistant Relationship Specialty Start Date End Date Elsewhere, Pcp PCP - General Family Medicine 01/08/18 01/12/21 documented as of this encounter
--- OUTSIDE RECORDS SUMMARY | 2022-07-05 16:41 | XMS_ITS | Encounter Summary ---
:1990 Author Organization [facility] Address [address] [place] [address] Care Team Providers Name Role Phone Elsewhere, Pcp Primary Care Provider Unavailable Reason for Referral Outpatient (Routine) - Closed Specialty Diagnoses / Procedures Referred By Contact Refer red To Contact Family Medicine Ben Arce M.D. [facility] Region [address] [place] [address] Referral ID Status Reason Start Date Expiration Date Visits Requ ested Visits Authorized [id number] Closed 01/28/2019 01/28/2020 1 1 Reason for Visit Reason Comments Follow-up Sprain knee Encounter Details Date Type Department Care Team Description 01/28/2019 Comprehensive Visit Department of Ben Metzger, Pain Knee Left (Primary Dx); [facility]; [place], [place] [address] Thrombosis Superficial Vein Lower Extremity Left [address] [place] [phone] Social History Tobacco Use Types Packs/Day Years [...] do you attend quaker or Never 2021 oriental orthodox services? Do you belong to any clubs or No 11/20/2021 organizations such as quaker groups, unions, fraEstrada Beisbol or athletic groups, or school groups? How [...] at Date Recorded Female 12/02/2021 5:19 PM BATCH TRUCKER documented as of this encounter Last Filed [...] Type Priority Associated Diagnoses Order S [facility] Medicine Outpatient Referral Routine Expec taurus: [...] Leg documented in this encounter Care Teams Logging Contractor Relationship Specialty Start Date End Date Elsewhere, Pcp PCP - General Family Medicine 01/08/18 01/12/21 documented as of this encounter
--- OUTSIDE RECORDS SUMMARY | 2022-07-05 16:41 | XMS_ITS | Encounter Summary ---
:1990 Author Organization [facility] Address [address] [place] [address] Care Team Providers Name Role Phone Elsewhere, Pcp Primary Care Provider Unavailable Reason for Visit Reason Comments Follow-up Outpatient (Routine) - Closed Specialty Diagnoses / Procedures Referred By Contact Refer red To Contact Family Medicine Ben Arce M.D. [facility] Region [address] [place] [address] Referral ID Status Reason Start Date Expiration Date Visits Requ ested Visits Authorized [id number] Closed 01/28/2019 01/28/2020 1 1 Encounter Details Date Type Department Care Team Description 02/11/2019 Office Visit Department of Ben Metzger M.D. Thrombosis Superficial Medicine in [facility] [address] Vein Lower Extremity [place], [place] Left (Primary Dx) [address] [place] [address] [place], [place] [phone] (Work) [phone] Social History Tobacco Use Types Packs/Day Years [...] do you attend evangelical or Never 2021 adventist services? Do you [...] at Date Recorded Female 12/02/2021 5:19 PM BALANCE WHEEL HAND FILER documented as of this encounter Last Filed [...] Primary documented in this encounter Care Teams Glue Bone Drier Relationship Specialty Start Date End Date Elsewhere, Pcp PCP - General Family Medicine 01/08/18 01/12/21 documented as of this encounter
--- OUTSIDE RECORDS SUMMARY | 2022-07-05 16:41 | XMS_ITS | Encounter Summary ---
:1990 Author Organization [facility] Address [address] [place] [address] Care Team Providers Name Role Phone Elsewhere, Pcp Primary Care Provider Unavailable Reason for Visit Reason Comments Sore Throat pt with 2 1/2 week history o f sinus congestion now presents with sore throat. Throat pain started about 4 days ago, and is getting worse every day. Encounter Details Date Type Department Care Team Description 09/22/2018 Emergency [place] [facility] Marissa Mccormack, Catie lawsonnicole Acute Department D.O. (Primary Dx) [address] [place] [phone] Social History Tobacco Use Types Packs/Day Years [...] do you attend jewish or Never 2021 yazdanism services? Do you [...] Date Recorded Female 12/02/2021 5:19 PM SUPERVISOR PRINT LINE documented as of this encounter Last Filed Vital Signs Vital Sign Reading Time Taken Comments Blood Pressure 128/88 09/22/2018 9:00 AM SUPERVISOR PRINT LINE Pulse 88 09/22/2018 9:00 AM SUPERVISOR PRINT LINE Temperature 37.5 ??C (99.5 ??F) 09/22/2018 9:00 AM SUPERVISOR PRINT LINE Respiratory Rate 16 09/22/2018 9:00 AM SUPERVISOR PRINT LINE Oxygen Saturation 99% 09/22/2018 9:00 AM SUPERVISOR PRINT LINE Inhaled Oxygen Concentration - - Weight 71.9 kg (158 lb 8.2 oz) 09/22/2018 8:10 AM SUPERVISOR PRINT LINE Height 157 cm (5' 1.81) 09/22/2018 8:10 AM SUPERVISOR PRINT LINE Body Mass Index 29.17 09/22/2018 8:10 AM SUPERVISOR PRINT LINE documented in this encounter Discharge Instructions Discharge InstructionsBuMarissa lopez D.O. - 09/22/2018 8:59 AM CST Take the steroids daily, and take ibuprofen and/or tylenol as needed for pain. You should return to the ED for dehydration, if you are more swollen, have difficulty breathing or cannot swallow. RVISOR PRINT LINE AttachmentsThe following attachments cannot be sent through Care Everywhere.Sore Throat (Urdu)documented in this encounter Medications at Time of [...] Pharyngitis Acute Marissa Mccormack D.O. 09/22/18 0917 RVISOR PRINT LINE documented in this encounter Plan of Treatment Not on filedocumented as of this encounter Procedures Procedure Name Priority Date/Time Associated Diagnosis Comme nts RAPID STREP A STAT 09/22/2018 8:37 AM Results for this SCREEN SUPERVISOR PRINT LINE procedure are i n the results section. BACTERIAL CULTURE, STAT 09/22/2018 8:37 AM Res ults for this THROAT SUPERVISOR PRINT LINE procedure are i n the results section. documented in this encounter Results Bacterial Culture, Throat (09/22/2018 8:37 AM SUPERVISOR PRINT LINE) [facility] Method Time Signature Throat No growth of 09/24/2018 [facility] Culture Streptococcus 7:07 AM SUPERVISOR [employer] [facility] pyogenes [facility] Specimen Anatomical Collection Method Collection Time Receive d Time (Source) Location / / Volume Laterality Throat Swab 09/22/2018 8:37 AM 8 3:28 SUPERVISOR PRINT LINE PM SUPERVISOR PRINT LINE Marissa Mccormack D.O. LAB MICROBIOLOGY - GENERAL O RDERABLES Performing Organization Address City/State/ZIP Code Phon e Number [facility] [address] [place] [address] LAB Rapid Strep A Screen (09/22/2018 8:37 AM SUPERVISOR PRINT LINE) P athologist Signature Rapid Strep A Negative Negative 09/22/2018 [facility] Screen 8:52 AM [facility] Specimen Anatomical Collection Method Collection Time Receive d Time (Source) Location / / Volume Laterality Varies (Throat) 09/22/2018 8:37 AM 2017 8:41 SUPERVISOR PRINT LINE AM SUPERVISOR PRINT LINE Marissa Mccormack D.O. LAB MICROBIOLOGY - GENERAL O RDERABLES Performing Organization Address City/State/ZIP Code Phon e Number [address] [address] [place] documented in this encounter Visit Diagnoses Diagnosis Pharyngitis Acute - Primary documented in this encounter Care Teams Laundry Tub Maker Relationship Specialty Start Date End Date Elsewhere, Pcp PCP - General Family Medicine 01/08/18 01/12/21 documented as of this encounter
--- OUTSIDE RECORDS SUMMARY | 2022-07-05 16:41 | XMS_ITS | Encounter Summary ---
:1990 Author Organization [facility] Address [address] [place] [address] Care Team Providers Name Role Phone Elsewhere, Pcp Primary Care Provider Unavailable Reason for Visit Reason Comments Sinus Symptoms ST, Cipriano ear pressure, conges tion; 3.5 wks ago Encounter Details Date Type Department Care Team Description 06/27/2019 Office Visit Urgent [facility], [facility] [place], [place] [address], [address] [place] [address] [phone] (Wo rk) Social History Tobacco Use Types [...] do you attend muslim or Never 2021 caodaism services? Do you [...] at Date Recorded Female 12/02/2021 5:19 PM HISTORICAL INTERPRETER documented as of this encounter Last [...] Primary documented in this encounter Care Teams Phlebotomist Relationship Specialty Start Date End Date Elsewhere, Pcp PCP - General Family Medicine 01/08/18 01/12/21 documented as of this encounter
--- OUTSIDE RECORDS SUMMARY | 2022-07-05 16:41 | XMS_ITS | Encounter Summary ---
:1990 Author Organization [facility] Address [address] [place] [address] Care Team Providers Name Role Phone Elsewhere, Pcp Primary Care Provider Unavailable Encounter Details Date Type Department Care Team Description 01/28/2019 Hospital Encounter Department of Radiology, Ben Arias M.D. [place] [address] [address] [place], [place] [facility] [address] [place] [address] [phone] Social History Tobacco Use Types Packs/Day Years [...] do you attend faith or Never 2021 worship services? Do you [...] at Date Recorded Female 12/02/2021 5:19 PM PLANNER CHIEF documented as of this encounter Medications at [...] on filedocumented in this encounter Care Teams Wing Coverer Relationship Specialty Start Date End Date Elsewhere, Pcp PCP - General Family Medicine 01/08/18 3 documented as of this encounter
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
--- OUTSIDE RECORDS SUMMARY | 2022-07-05 16:41 | XMS_ITS | Encounter Summary ---
:1990 Author Organization [facility] Address [address] [place] [address] Care Team Providers Name Role Phone Elsewhere, Pcp Primary Care Provider Unavailable Reason for Visit Reason Comments PAYAL has had symptoms for 3-4 we eks Muscle Pain chest and back -05/31, has been using ibuprofen Encounter Details Date Type Department Care Team Description 10/31/2018 Emergency [place] [facility] Valerie Malone, Infec kori Upper Department MMaribellDMaribell Respiratory (Primary [address] Dx) [place] [phone] [phone] Social History Tobacco Use Types Packs/Day Years [...] do you attend pentecostal or Never 2021 methodist services? Do you [...] at Date Recorded Female 12/02/2021 5:19 PM SURVEY COMPILER documented as of this encounter Last Filed Vital Signs Vital Sign Reading Time Taken Comments Blood Pressure 134/95 10/31/2018 6:52 PM SURVEY COMPILER Pulse 81 10/31/2018 6:06 PM SURVEY COMPILER Temperature 37.2 ??C (99 ??F) 10/31/2018 6:52 PM SURVEY COMPILER Respiratory Rate 20 10/31/2018 6:06 PM SURVEY COMPILER Oxygen Saturation 98% 10/31/2018 6:06 PM SURVEY COMPILER Inhaled Oxygen Concentration - - Weight 73.3 kg (161 lb 9.6 oz) 10/31/2018 6:04 PM SURVEY COMPILER Height 152.4 cm (5') 10/31/2018 6:04 PM SURVEY COMPILER Body Mass Index 31.56 10/31/2018 6:04 PM SURVEY COMPILER documented in this encounter Discharge Instructions AttachmentsThe following attachments cannot be sent through Care Everywhere. Upper Respiratory Infection Adult Jmfe-ch-Ytos (Tajik)documented in this encounter Medications at Time of [...] Upper Respiratory Valerie Malone M.D. 10/31/18 1840 EY COMPILER documented in this encounter Plan of Treatment Not on filedocumented as of this encounter Visit Diagnoses Diagnosis Infection Upper Respiratory - Primary documented in this encounter Care Teams Distribution Transformer Assembler Relationship Specialty Start Date End Date Elsewhere, Pcp PCP - General Family Medicine 01/08/18 01/12/21 documented as of this encounter
--- OUTSIDE RECORDS SUMMARY | 2022-07-05 16:41 | XMS_ITS | Encounter Summary ---
:1990 Author Organization [facility] Address [address] [place] [address] Care Team Providers Name Role Phone Elsewhere, [...] Type Department Care Team Description 07/29/2019 Emergency [place] [facility] Sigrid Forbes ontusion Left Lower Department D, MMaribellDMaribell Leg Initial (Primary [address] Dx) [place] [phone] (Wo rk) Social History Tobacco Use Types [...] 11/20/2021 organizations such as religion groups, unions, fraNextlanding or athletic groups, or school groups? 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 Thank you for choosing [facility] for your care. It was a pleasure taking care of you today in our Emergency Department. AttachmentsThe following attachments cannot be sent through Care Everywhere. Contusion Litd-co-Aruj (Chinese)documented in this encounter Medications at Time of Discharge Medication Sig Dispensed Refills Start Date End Date acetaminophen (TYLENOL Take by mouth as 0 08/11/2019 ORAL) needed. etonogestreL (NEXPLANON) 1 each by implant 0 12/2112/20/2021 68 mg subdermal implant route continuously. documented as of this encounter ED Notes Sigrid Forbes M.D. - 07/29/2019 4:50 PM CDT [facility] EMERGENCY DEPARTMENT ENCOUNTER Patient Name: [...] of the incident with the reassuring ROS [facility] neuro system, I do not feel [...] CDT eGFR-Black/Afric >90 >=60 07/29/2019 [facility] an Norwegian mL/min/BSA 6:50 PM CDT Comment: ----ADDITIONAL INFORMATION---- [...] Phon e Number [facility] [address] [place] [address] [facility] [place] [address] [place] [address] [address] [facility] (ABNORMAL) CBC without Differential (07/29/2019 6:21 PM CDT) [facility] Method Time Signature Hemoglobin 13.2 11.6 - [...] Phon e Number [facility]- [address] [place], [place] [address] [facility] [place] [address] [facility] [address] DX Ankle [...] Sigrid Forbes M.D. IMG DIAGNOSTIC IMAGING PROCE [facility] CT Lumbar Spine by Reconstruction [...] tibia and fibula Sigrid Forbes M.D. [facility] DIAGNOSTIC IMAGING PROCE DURES DX Femur Left [...] mcg (SUBLIMAZE) (COMPLETED) 1757 (Given - Provider: Rylei Lin R.N.) 50 mcg, intravenous, Once, On [...] (Given - Provider: Gurdeep Persaud(R)(CT) - Comment: [phone]) 100 mL, intravenous, Once in imaging, co [...] 1651 documented in this encounter Care Teams Air Pollution Compliance Inspector Relationship Specialty Start Date End Date Elsewhere, Pcp PCP - General Family Medicine 01/08/18 01/12/21 documented as of this encounter
--- OUTSIDE RECORDS SUMMARY | 2022-07-05 16:41 | XMS_ITS | Encounter Summary ---
:1990 Author Organization [facility] Address [address] [place] [address] Care Team Providers Name Role Phone Elsewhere, Pcp Primary Care Provider Unavailable Reason for Visit Reason Comments Sinus Symptoms 3 wks ago; started with ST, then ears and facial pressure. Pt using NetiPot. Sore Throat strep exposure at work Encounter Details Date Type Department Care Team Description 05/08/2018 Office Visit [facility] Arely Ferrell Sinu sitis [place], [place] BREAKER TENDER, C.N.P. (Primary Dx) [address] [place] [phone] Social History Tobacco Use Types Packs/Day Years [...] do you attend denominational or Never 2021 tenriism services? Do you [...] at Date Recorded Female 12/02/2021 5:19 PM MISSION MANAGER documented as of this encounter Last [...] care provider none identified. Recently moved to [place]. REVIEW OF SYSTEMS Constitutional: Negative for fever. [...] Primary documented in this encounter Care Teams Horser Up Relationship Specialty Start Date End Date Elsewhere, Pcp PCP - General Family Medicine 01/08/18 01/12/21 documented as of this encounter
--- OUTSIDE RECORDS SUMMARY | 2022-07-05 16:41 | XMS_ITS | Encounter Summary ---
:1990 Author Organization [facility] Address [address] [place] [address] Care Team Providers Name Role Phone Elsewhere, Pcp Primary Care Provider Unavailable Encounter Details Date Type Department Care Team Description 01/28/2019 Hospital Encounter Department of Radiology Ben Arce M.D. Edema Leg in [place], [place] [address] [place] [phone] Social History Tobacco Use Types Packs/Day Years [...] do you attend anabaptist or Never 2021 pentecostal services? 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
--- OUTSIDE RECORDS SUMMARY | 2022-07-05 16:41 | XMS_ITS | Encounter Summary ---
:1990 Author Organization [facility] Address [address] [place] [address] Care Team Providers Name Role Phone Elsewhere, Pcp Primary Care Provider Unavailable Reason for Visit Reason Comments Sore Throat SX: in ER Sunday with josiane st inflammation; st started Encounter Details Date Type Department Care Team Description 07/26/2019 [facility] (Primary Dx) [place], [place] [address], [address] [place] [address] [phone] (Wo rk) Social History Tobacco Use Types [...] do you attend anglican or Never 2021 druze services? Do you [...] Organization Address City/State/ZIP Code Phon e Number [place] [address] [place] [address] [facility]rep [facility] A, PCR, Point [...] Organization Address City/State/ZIP Code Phon e Number [place] [address] [address] [place] [address] [facility] documented in this encounter Visit Diagnoses Diagnosis Pharyngitis Acute - Primary documented in this encounter Care Teams Top Flavor Attendant Relationship Specialty Start Date End Date Elsewhere, Pcp PCP - General Family Medicine 01/08/18 01/12/21 documented as of this encounter
--- OUTSIDE RECORDS SUMMARY | 2022-07-05 16:41 | XMS_ITS | Encounter Summary ---
:1990 Author Organization [facility] Address [address] [place] [address] Care Team Providers Name Role Phone Unavailable Primary Care Provider Unavailable Encounter Details Date Type Department Care Team Description 06/14/2017 Hospital Encounter HX [facility] Essence Yin M.D. [address] [place], [place] [phone] (Wo rk) Social History [...] do you attend mandaeism or Never 2021 amish services? Do you [...] Date Recorded Female 12/02/2021 5:19 PM ADMINISTRATIVE PROCESSOR documented as of this encounter Last Filed [...] 06/14/2017 9:06 PM CDT ED Depart Summary [facility] Emergency Department Clinical Discharge Summary PERSON INFORMATION Name DILLAN MATA Age 27 Years 1990 12:00 AM Sex Female Language Slovak PCP PCP, ELSEWHERE Marital Status Unknown Visit Id Visit Reason Foot injury - Minor; FOOT PAIN Specialty Enc Type Emergency Med Service Emergency Medicine Referred by Track Group [facility]ASHMonica ED Discharge 06/14/2017 7:45 PM Tracking Id [id number] Checkout 06/14/2017 7:45 PM Checkin 06/14/2017 6:17 PM Acuity 4 -Less Urgent Dispo Type * Discharged to Home or Self Care Arrival 06/14/2017 6:17 PM Reg Status LOS 000 01:28 Address: [address] [place] [phone] Comment: PROVIDER INFORMATION Provider Role Provider Contact Time CHAVA KUHN TEAROOM HOSTESS Nurse 06/14/17 18:44 CHU ADKINS MD ED Provider 06/14/17 18:52 ANDREW BROCK TEAROOM HOSTESS Nurse 06/14/17 19:21 DIAGNOSIS Sprain Foot Initial L Comment: PATIENT EDUCATION INFORMATION Instructions: SPRAIN FOOT Follow up: With: Address: When: Follow up with primary care in 1 week if not improving. Return to the ED for increasing pain or swelling. Within As Needed Source: [facility] POWERCHART Document Id: [id number] Andrew Brock R.N. - 06/14/2017 9:06 PM CDT ED Discharge Instructions [address] [address] Name: DILLAN MATA Date of : 1990 12:00 AM Visit Date: 06/14/2017 6:17 PM [facility] Number: [phone] Address: [address] [facility] [id number] Primary Care Provider: PCPBHARATHI IMPORTANT: [facility] in [place] would like to thank you for allowing [...] become cold, blue, numb, or tingly ?? [phone] [facility], [address] [place] [address]. All rights reserved. This information is not [...] dont have one. Go to [email or web address] and click on Create Your Account. Then, follow the directions to complete the online form. Youll be asked for your [facility] number which you can find at the [...] document has images extracted. Please consider using [employer] for all your patient education needs. Source: [employer] Document Id: [id number] Andrew Brock R.N. - 06/14/2017 7:45 PM CDT ED Disposition Summary ED Disposition Summary Entered On: 06/14/2017 20:33 CDT Performed On: 06/14/2017 19:45 CDT by ANDREW BROCK TEAROOM HOSTESS Disposition Summary Present in Room During Exam/Procedure : Alone Mode of Discharge : Ambulatory Transportation : Private vehicle Discharge From ED With : Home Med List Printed Discharge Instructions Given to Patient : Yes Patient Status at Discharge from ED : Improved 30 Minutes Critical Care : No ANDREW BROCK RN - 06/14/2017 20:33 CDT Source: [employer] Document Id: [id number] CDT!9 documented in this encounter Medications at [...] 06/14/2017 21:05 CDT [facility] Document Id: [id number] CDT!18 Andrew Brock R.N. - 06/14/2017 7:30 [...] BROCK RN - 06/14/2017 22:10 CDT Source: [facility] POWERCHART Document Id: [id number] CDT!5 Andrew Brock R.N. - 06/14/2017 7:21 [...] ANDREW BROCK RN - 06/14/2017 19:21 CDT Huggins Coma Eye Opening Response Huggins : Spontaneously Best Verbal Response Huggins : Oriented Best Motor Response Sophie : [...] 06/14/2017 19:21 CDT [facility] Document Id: [id number] CDT!37 Chu Adkins M.D. - 06/14/2017 6:52 [...] Patient Bed, Once, 06/14/2017 18:53 CDT, [facility] Urology. Radiology results:* Final Report [...] Transcribed by: ROSHAN Technologist: NAYANA ESPOSITO RT(R)(CT) [id number] This document has an image Result type: XR Foot Left 3 or more views Result date: June 14, 2017 19:14 CDT Result status: Auth (Verified) Result title: XR Foot Left 3 or more views Performed by: DAVID SEPULVEDA MD on June 14, 2017 19:18 CDT Verified by: DAVID SEPULVEDA MD on June 14, 2017 19:18 CDT Encounter info: [id number], [facility], Emergency, 06/14/2017 - . [...] ADKINS MD On: 06/14/2017 07:35 PM Source: [facility] POWERCHART Document Id: [id number]} Chava Kuhn R.N. - 06/14/2017 6:37 PM [...] PNED ; Probability: 0 ; Diagnosis Code: [id number] Triage Triage Treatments : Ice to affected [...] Ambulatory Track : Trauma Other Languages : Slovak Vital Signs Assessed : Yes Treatments Prior [...] Heart Rhythm : Regular Skin Color : Deport Skin Description : Normal Skin Temperature : [...] KUHN RN - 06/14/2017 18:37 CDT Source: [facility]iar Document Id: [id number] CDT!3 documented in this encounter Miscellaneous Notes Miscellaneous - Andrew Brock RHarish - 06/14/2017 7:45 PM CDT Valuables/Belongings Valuables/Belongings Entered On: 06/14/2017 20:33 CDT Performed On: 06/14/2017 19:45 CDT by ANDREW BROCK RN Valuables/Belongings Belongings Sent Home With : All sent w/pt at d/c Home Medication Disposition : None brought in with patient ANDREW BROCK RN - 06/14/2017 20:32 CDT Source: [employer] Document Id: [id number] CDT!4 Miscellaneous - Conversion, Historical Provider Ser - 06/14/2017 7:45 PM CDT Coding Summary-Paper Based CODING DATE: 06/26/2017 FINAL AAKASH [place] [facility] STATUS: * Discharged to Home [...] LORD Date Saved: 06/26/2017 09:17 am Source: [employer] Document Id: [id number] documented in this encounter Plan of Treatment [...]
--- OUTSIDE RECORDS SUMMARY | 2022-07-05 16:41 | XMS_ITS | Encounter Summary ---
:1990 Author Organization [facility] Address [address] [place] [address] Care Team Providers Name Role Phone Elsewhere, [...] Type Department Care Team Description 07/23/2019 Emergency [place] [facility] Bull Calderon Cos tochondritis (Primary Department M.D. Dx) [address] [facility] [place] [phone] Social History Tobacco Use Types Packs/Day Years [...] do you attend yazidi or Never 2021 gnosticism services? 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 Costochondritis Tfqe-ga-Tdqu (Irish)documented in this encounter Medications at Time of [...] Plan Impression: Costochondritis Plan: Patient has utilize vbca-arg-enenzyd medications without improvement or alteration in her symptomatology. Patient be started on prednisone 20 mg daily for 5 days, the 1st dose administered here in the emergency department. Ultram 50 mg 1/2-1 tablet to be utilized every 6 hours as needed for painrating 7-10/10 severity, quantity 15 with no refills was prescribed from the [facility] medication dispenser as it is currently raining [...] dose documented in this encounter Care Teams Bore Mill Operator Relationship Specialty Start Date End Date Elsewhere, Pcp PCP - General Family Medicine 01/08/18 01/12/21 documented as of this encounter
--- OUTSIDE RECORDS SUMMARY | 2022-07-05 16:41 | XMS_ITS | Encounter Summary ---
:1990 Author Organization [facility] Address [address] [place] [address] Care Team Providers Name Role Phone Unavailable Primary Care Provider Unavailable Encounter Details Date Type Department Care Team Description 01/15/2017 Hospital Encounter HX [facility] Felix Guillen M.D. [address] [place], [place] [address] (Wo rk) Social History [...] do you attend jainism or Never 2021 mu-ism services? 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 [address] Name: DILLAN MATA Date of : 1990 12:00 AM Visit Date: 01/15/2017 7:46 PM [facility] Number: [id number] Address: [address] [place] [id number] Primary Care Provider: PCP, BHARATHI IMPORTANT: [facility] in [place] would like to thank you for allowing [...] becomes cold, blue, numb or tingly ?? [phone] [facility], [address] [place] [address], [place] [address]. All rights reserved. This information is not [...] dont have one. Go to [email or web address] and click on Create Your Account. Then, follow the directions to complete the online form. Youll be asked for your [facility] number which you can find at the [...] arrange a ride home with a responsible democrat. LARISSA Carrizales KALLIE , or responsible democrat have received this information and my questions [...] arrange a ride home with a responsible democrat. LARISSA Carrizales KALLIE or responsible democrat have received this information and my questions have been answered. I have discussed any challenges I see with this plan with the nurse or physician. Patient Signature or Responsible Green Party/Relationship Date Time Provider Signature Date Time Source: AVIA Document Id: [id number] Angelica Sandra R.N. - 01/15/2017 11:20 PM CDT ED Depart Summary [facility] Emergency Department Clinical Discharge Summary PERSON INFORMATION Name DILLAN MATA Age 26 Years 1990 12:00 AM Sex Female Language Croatian PCP PCP, ELSEWHERE Marital Status Unknown Visit Id Visit Reason Hand pain-swelling; SWOLLEN RIGHT HAND Specialty Enc Type Emergency Med Service Emergency Medicine Referred by Track Group MAQN ED Discharge 01/15/2017 11:10 PM Tracking Id [id number] Checkout 01/15/2017 11:10 PM Checkin 01/15/2017 7:46 PM Acuity 4 -Less Urgent Dispo Type * Discharged to Home or Self Care Arrival 01/15/2017 7:46 PM Reg Status LOS 000 03:24 Address: [address] [place] [id number] Comment: PROVIDER INFORMATION Provider Role Provider Contact Time ANGELICA SANDRA ED Nurse 01/15/17 19:57 NIKOS MENDEZ MD ED Provider 01/15/17 20:09 DIAGNOSIS Contusion Hand Initial R Comment: PATIENT EDUCATION INFORMATION Instructions: CONTUSION, Hand Follow up: With: Address: When: Follow up with primary care provider Within As Needed Comments: Call for follow up appointment. If symptoms worsen. Source: [facility] POWERCHART Document Id: [id number] documented in this encounter Medications at Time [...] ANGELICA SANDRA - 01/15/2017 23:19 CDT Source: [facility]IA Document Id: [id number] CDT!9 Angelica Sandra R.N. - 01/15/2017 11:05 [...] ANGELICA SANDRA - 01/15/2017 23:19 CDT Source: [facility]IA Document Id: [id number] CDT!9 Angelica Sandra R.N. - 01/15/2017 11:02 [...] Motor Response Sophie : Obeys simple commands [place] Coma Score : 15 ANGELICA SANDRA 01/15/2017 23:02 CDT GI Reassess GI Patient Stated Symptoms : None ANGELICA SANDRA - 01/15/2017 23:02 CDT /OB Reassess Patient Stated Symptoms : None ANGELICA SANDRA - 01/15/2017 23:02 CDT Source: [employer] Document Id: [id number] CDT!34 Kim Bartholomew R.N. - 01/15/2017 10:00 [...] Brenda RN - 01/15/2017 22:00 CDT Source: [facility]IA Document Id: [id number] CDT!15 Nikos Mendez M.D. - 01/15/2017 9:52 [...] Stat, Patient Bed, Once, 01/15/2017 21:53 CDT, [facility] Urology. Radiology results:Emergency physician interpretation: Creator: Nikos Mendez Date: Jan 15, 2017 23:04:53 Subject: Preliminary ER Physician Findings (preliminary only - not final):Three-view x-ray of the right hand: Negative for fracture or dislocation. Brant Cortes Impression and Plan Diagnosis Contusion Hand Initial R (Discharge, Emergency medicine, Medical) Plan Condition: Stable. Disposition: Discharged: Time 01/15/2017 23:05:00, to home. Prescriptions: Prescription Resume Writer Pharmacy: ibuprofen 200 mg oral tablet (Prescribe): [...] MENDEZ MD On: 01/15/2017 11:07 PM Source: [facility] POWERCHART Document Id: {[id number]} Angelica Sandra R.N. - 01/15/2017 8:55 PM [...] Response Sophie : Oriented Best Motor Response [place] : Obeys simple commands Sophie Coma Score : 15 ANGELICA SANDRA 01/15/2017 20:55 CDT GI Reassess GI Patient Stated Symptoms : None ANGELICA SANDRA 01/15/2017 20:55 CDT Source: [facility] POWERCHART Document Id: [id number] CDT!3 Angelica Sandra R.N. - 01/15/2017 7:51 [...] PNED ; Probability: 0 ; Diagnosis Code: [id number] Triage Chief Complaint Description : Pt presents [...] vehicle, Ambulatory Track : Medical Languages : Croatian Vital Signs Assessed : Yes GCS Assessed [...] kg/m2 ANGELICA SANDRA - 01/15/2017 19:51 CDT [place] Coma Eye Opening Response [place] : Spontaneously Best Verbal Response [place] : Oriented Best Motor Response [place] : Obeys simple commands Sophie Coma Score [...] None ANGELICA SANDRA 01/15/2017 19:51 CDT Source: [facility] Document Id: [id number] CDT!117 documented in this encounter Miscellaneous Notes Miscellaneous - Conversion, Historical Provider Ser - 01/15/2017 11:10 PM CDT Coding Summary-Paper Based CODING DATE: 01/22/2017 FINAL [facility] STATUS: * Discharged to Home or [...] DUONG Date Saved: 01/22/2017 10:08 am Source: AVIA Document Id: [id number] Miscellaneous - Angelica Sandra RMaribellN. - 01/15/2017 11:05 PM CDT Valuables/Belongings Valuables/Belongings Entered On: 01/15/2017 23:20 CDT Performed On: 01/15/2017 23:05 CDT by ANGELICA SANDRA Valuables/Belongings Belongings Sent Home With : all belongings sent home with patient ANGELICA SANDRA - 01/15/2017 23:20 CDT Source: [facility]IA Document Id: [id number] CDT!3 documented in this encounter Plan of [...]
--- OUTSIDE RECORDS SUMMARY | 2022-07-05 16:41 | XMS_ITS | Encounter Summary ---
:1990 Author Organization [facility] Address [address] [place] [address] Care Team Providers Name Role Phone Elsewhere, Pcp Primary Care Provider Unavailable Reason for Visit Reason Comments Nasal Congestion pt presents concerned for po ssible sinus infection. c/o of facial pain, congestion, ear pain a nd throat pain. symptoms for approx one month. denies fevers. has be en taking mucinex Encounter Details Date Type Department Care Team Description 03/28/2019 Emergency [facility] Valerie Malone, Infec kori Upper Department M.DMaribell Respiratory (Primary [address]) [place] [phone] Social History Tobacco Use Types Packs/Day Years [...] do you attend alevism or Never 2021 congregation services? Do you [...] at Date Recorded Female 12/02/2021 5:19 PM METER INSTALLER documented as of this encounter Last [...] documented in this encounter Care Teams Senior Software Systems Engineer Relationship Specialty Start Date End Date Elsewhere, Pcp PCP - General Family Medicine 01/08/18 01/12/21 documented as of this encounter
--- OUTSIDE RECORDS SUMMARY | 2022-07-05 16:41 | XMS_ITS | Encounter Summary ---
:1990 Author Organization [facility] Address [address] [place] [address] Care Team Providers Name Role Phone Elsewhere, Pcp Primary Care Provider Unavailable Reason for Visit Reason Comments Headache frontal and middle of head Earache Cipriano ear pain Sore Throat drainage Sinus Problem over 1 month Encounter Details Date Type Department Care Team Description 01/07/2018 Office Visit [facility] Janel DoddMc[place], [place] FATOU Samuel, C.N.P., (Primary Dx) [address] [address] Social History Tobacco Use Types Packs/Day Years [...] do you attend restorationism or Never 2021 anabaptism services? Do you [...] at Date Recorded Female 12/02/2021 5:19 PM PAVER INSTALLER documented as of this encounter Last [...] who goes to preschool. She works at [employer] with several people throughout theday. She has [...] Primary documented in this encounter Care Teams Silk Screen Printer Helper Relationship Specialty Start Date End Date Elsewhere, Pcp PCP - General Family Medicine 01/08/18 01/12/21 documented as of this encounter
--- OUTSIDE RECORDS SUMMARY | 2022-07-05 16:41 | XMS_ITS | Encounter Summary ---
:1990 Author Organization [facility] Address [address] [place] [address] Care Team Providers Name Role Phone Elsewhere, Pcp Primary Care Provider Unavailable Reason for Visit Reason Comments Skin Problem pt is noted to have bump i n left armpit and left groin, both are painful, denies fever or chi lls, states the leg bump popped on sunday Encounter Details Date Type Department Care Team Description 08/07/2018 Emergency [facility] Bull Calderon Car buncle Of Groin (Primary Dx); Department M.D. Carbuncle Axilla Left [address] [place] [phone] Social History Tobacco Use Types Packs/Day Years [...] do you attend confucianist or Never 2021 roman catholic services? Do [...] at Date Recorded Female 12/02/2021 5:19 PM SHANK BONER documented as of this encounter Last Filed [...] cannot be sent through Care Everywhere.Skin Abscess Utct-yx-Djgs (Tamazight)documented in this encounter Medications at Time [...] override documented in this encounter Care Teams Science Center Display Builder Relationship Specialty Start Date End Date Elsewhere, Pcp PCP - General Family Medicine 01/08/18 01/12/21 documented as of this encounter
--- OUTSIDE RECORDS SUMMARY | 2022-07-05 16:41 | XMS_ITS | Encounter Summary ---
:1990 Author Organization [facility] Address [address] [place] [address] Care Team Providers Name Role Phone Elsewhere, Pcp Primary Care Provider Unavailable Reason for Visit Reason Comments Sinus Symptoms 30 + days ago Encounter Details Date Type Department Care Team Description 12/12/2018 Office Visit Express [facility] in [facility] Mario Savage, Inf ection [place], [place] P.A.-C. Respiratory (Primary [address], [place]) [facility] [address] [place], [place] [phone] (Wo rk) Social History Tobacco Use Types [...] at Date Recorded Female 12/02/2021 5:19 PM LOOP TENDER documented as of this encounter Last Filed Vital Signs Vital Sign Reading Time Taken Comments Blood Pressure 136/92 12/12/2018 7:15 PM LOOP TENDER Pulse 86 12/12/2018 7:15 PM LOOP TENDER Temperature 36.9 ??C (98.4 ??F) 12/12/2018 7:15 PM LOOP TENDER Respiratory Rate - - Oxygen Saturation 96% 12/12/2018 7:15 PM LOOP TENDER Inhaled Oxygen Concentration - - Weight 72 kg (158 lb 11.7 oz) 12/12/2018 7:15 PM LOOP TENDER Height - - Body Mass Index 31 10/31/2018 6:04 PM LOOP TENDER documented in this encounter Patient Instructions [...] urgent care if worsening. Mario Savage P.A.-C. TENDER documented in this encounter Progress Notes Mario [...] urgent care if worsening. Mario Savage P.A.-C. TENDER documented in this encounter Plan of Treatment Not on filedocumented as of this encounter Visit Diagnoses Diagnosis Infection Upper Respiratory - Primary documented in this encounter Care Teams Chair Frame Builder Relationship Specialty Start Date End Date Elsewhere, Pcp PCP - General Family Medicine 01/08/18 01/12/21 documented as of this encounter
[2022-07-05 16:46] VITALS: BP 134/86; PULSE 80
[2022-07-05 17:36] LABS: Amnisure Rom* Negative
--- NOTE | 2022-07-05 17:48 | CRLHL7_ITS ---
For Patients: As a result of the Century Cures Act, medical imaging exams and procedure reports are released immediately into your electronic medical record. You may view this report before your referring provider. If you have questions, please contact your health care provider. INDICATION: Possible premature rupture of membranes. TECHNIQUE: Ultrasound OB pelvis transabdominal. Real-time norton-scale imaging of the uterus was performed. COMPARISON: 06/28/2022 FINDINGS: Sonographic imaging demonstrates a single living intrauterine gestation. Fetus demonstrates a regular cardiac rate of 145 beats per minute. Fetus has a breech orientation. The placenta lies posteriorly without evidence of placenta previa. Amniotic fluid volume appears normal. IMPRESSION: 1. Single viable intrauterine . 2. Normal amniotic fluid volume. Dictated by Charlie Smith MD @ 07/05/2022 8:06:44 PM (Electronically Signed)
--- NOTE | 2022-07-05 18:06 | P.OBLDTN_ITS ---
OB - Triage/Final Diagnosis Visit Information Time Seen by Provider: 18:06 Date Seen: 07/05/22 Date of evaluation: 07/05/22 Narrative: The patient is a 32 year old 3 para 0111 at 34 2/7 weeks gestation by ultrasound, CARLOS 08/14/2022, who presents with concerns about her water breaking. Also complains of contractions since about 230 this afternoon. She was at work, when suddenly there was some wetness in her underwear in there was a puddle on the floor of clear liquid. She has had no further leakage of fluid, but is worried that she experienced rupture of membranes. She has a prior history of a delivery at 32 weeks gestation (labor induced for severe gestational hypertension). Reason for evaluation: threatened labor and other (Rule out rupture membranes) Comments/Additional reasons for admission: OB Problem List: 1. Transfer of OB care at 25 weeks from [facility]. * Records requested: [] * labs 12/20/2021 Blood type O positive, antibody screen negative, hemoglobin 14.1, platelets 360, rubella immune, HBsAg neg, RPR NR, HIV NR, urine culture no growth, A1c 5.2, HCV neg, genetic screening neg, female. Pap 11/24/2021: NIL, HPV neg. * Imagin12/20/21 First trimester ultrasound, 6w 1d, CARLOS 08/14/22. Anatomy scan: [] 2. conceived on Nexplanon * Device removed in first-trimester 3. Mild gestational HTN diagnosed 06/18/22. * History severe preeclampsia * On aspirin 81 mg daily * Home BP monitoring, home cuff prescription sent to pharmacy 05/01/2022 * BP elevated on 05/01/2022. Labs: Platelets 238, AST 14, ALT 10, creatinine 0.5, urine P/C 0.0 * Normal labs, negative proteinuria 06/18/22 * Begin weekly testing with US for EFW Q 4 weeks at 32 weeks. 4. History of delivery, labor induced at 32-33 weeks secondary to severe preeclampsia * Infant son reportedly stillborn but was resuscitated and did well. 5. History of gestational diabetes, currently gestational diabetic * A1c 5.2% * 1 hour glucose screen: 178 * 3 hour GTT: 3/4 values elevated = gestational diabetes * Started on metformin, has appt to discuss insulin with Constanza Grey * 06/22/22: IMPRESSION: EFW 78th percentile, all growth parameters within normal ranges. 6. GERD * Not well controlled on famotidine * Prescription sent for omeprazole 40 mg daily 05/01/2022 7. Seen on Center 06/18/22 for diffuse abdomninal and back pain, nausea and vomiting. Presumed viral gastroenteritis is likely contributing cause. 8. Breech * Declines ECV. * Has been seeing chiropractor. * Plans primary at 39 weeks unless fetus spontaneously converts to vertex. GYNECOLOGIC HISTORY:? LMP began 11/03/2021.? She reportedly had a Nexplanon in at the time of conception, which was removed in the 1st trimester. Her last pap smear was performed on 11/24/2021, NIL, HPV testing was negative.? She has no history of abnormal pap smears, sexually transmitted infections, or pelvic inflammatory disease. Treatment for infertility:? No. OBSTETRIC HISTORY:? 1. 12/05/2012 vaginal delivery at 32-33 weeks gestation, reportedly stillborn male who was resuscitated, 5 lb 8 oz, [facility] Labor induced for severe gestational hypertension or preeclampsia. also complicated by gestational diabetes. 2. History of 1 first-trimester miscarriage. PAST MEDICAL HISTORY:? 1. History of preeclampsia 2. History of gestational diabetes 3. Migraine headaches 4. Asthma PAST SURGICAL HISTORY:? 1. [place] teeth extraction ALLERGIES:? Allergies reviewed in Expan. MEDICATIONS: See medication list reviewed and reconciled today in Expan. SOCIAL HISTORY: The patient is single.? She is not employed.? Father of the baby accompanies her today. Tobacco use:? Denies. Alcohol use:? Denies Recreational drug use:? Denies Restorationism/cultural needs:? No. Chemical/radiation exposure:? No. FAMILY/GENETIC HISTORY: defects/mental retardation:? None Inherited diseases:? None Multiple losses:? None Age 35 or older at time of delivery?? No Evaluation Cervical dilation (cm): 1 Cervical effacement (%): 0 Laboratory results: Laboratory Tests 07/05/22 07/05/22 Range/Units 17:35 16:51 Membrane Rupture Negative Group B Strep DNA Pending Vital signs: Vital Signs - 24 hr 07/05/22 16:46 Pulse Rate 80 Blood Pressure 134/86 Comments: Abdominal exam: Gravid, size consistent with dates. Abdomen intermittently firm with contractions. Contractions are irregular on toco : Normal external female genitalia. On sterile speculum examination, there is some white/yellow vaginal discharge present. No pooling of amniotic fluid. The cervix is visually closed. No spontaneous leakage of fluid from the cervix with cough or Valsalva. Sterile vaginal exam per nursing: Cervix long, external os 1 cm, internal os closed. Fetus (Single) Heart Rate Baseline: 140 Merchandising Specialist Variability: Moderate (11-25) Monitor Accelerations: Present Monitor Decelerations: None Station: -3 Final Diagnosis (1) contractions: Status: Acute Problem details: The patient was treated with IV fluid hydration. She was reassured that there was no sign of rupture of membranes or labor. She was discharged home in stable condition.
[2022-07-05 18:18] LABS: Clue Cells <20% Clue Cells Seen (None Seen); Trichomonas No Trichomonas Seen (None Seen); Yeast No Yeast Seen (None Seen)
[2022-07-05 19:54] LABS: Appearance Urine Clear (Clear); Bilirubin Urine Negative (Negative); Blood Urine Trace-intact (Negative); Color Urine Yellow (Yellow); Glucose Urine Negative (Negative); Ketones Urine 2+ (Negative); Leukocyte Esterase Urine Negative (Negative); Nitrite Urine Negative (Negative); Protein Urine Negative (Negative); Urobilinogen Urine 0.2 (0.2-1.0)
--- NOTE | 2022-07-05 20:25 | PC.OBNST ---
NST Note NST Note Start: 07/05/22 16:55 Freq: ONCE Status: Active Protocol: Document 07/05/22 16:55 CUDDYH (Rec: 07/05/22 20:25 CUDDYH [id number]) NST Note 3 Para (# of births) 1 EDC 08/14/22 Gestational Age In Weeks & Days 34 Weeks & 2 Days High Risk Factors Diabetes - Gestational Insulin ,History of Labor/ Delivery Patient Presented with Complaint(s) of Contractions/cramping,Leaking fluid Reactive Yes Appropriate for Gestational Age Yes KATHI Hunt Date 07/05/22 Reactive Yes Appropriate for Gestational Age Yes KATHI Altamirano Date 07/05/22 OB NST charge Yes Complete NST Note via Write Note Yes The provider's electronic signature indicates the NST is reactive/appropriate for gestational age. *Note to provider: If an addendum is required, open the patient's chart and click on the note under the Nurse/Allied Health tab.
[2022-07-06 15:02] LABS: Strep B DNA Probe Negative (Negative)
== END 2022-07-05 20:25 | disposition home or self-care (01) ==
LOC: OB OUT 16:35 → OB 16:37
PROVIDERS: Obstetrics & Gynecology; Visit Provider Advanced Practice Midwife
DX: O47.03 False labor before 37 completed weeks of gestation, third trimester (principal); O24.415 Gestational diabetes mellitus in pregnancy, controlled by oral hypoglycemic drugs; O13.3 Gestational [pregnancy-induced] hypertension without significant proteinuria, third trimester; O32.1XX0 Maternal care for breech presentation, not applicable or unspecified; Z3A.34 34 weeks gestation of pregnancy
CPT/HCPCS: 59025; 76815; 81003; 81015; 84112; 87081; 87086; 87210; 87653; 96360; 99213

== ENCOUNTER 2022-07-06 07:13 | Outpatient (CLI) | payer MEDICAID, SELFPAY ==
--- NOTE | 2022-07-06 07:15 | CRLHL7_ITS ---
For Patients: As a result of the Century Cures Act, medical imaging exams and procedure reports are released immediately into your electronic medical record. You may view this report before your referring provider. If you have questions, please contact your health care provider. INDICATION: GESTATIONAL HYPERTENSION, DIABETES COMPARISON: 07/05/2022 TECHNIQUE: Real time norton scale imaging of the fetus was performed. Without non-stress testing. FINDINGS: Sonographic imaging demonstrates a single living intrauterine gestation. Fetus demonstrates a regular cardiac rate of 137 beats per minute. Fetus has a breech position. The amniotic fluid volume appears lower limits normal and there is a single deepest pocket measurement of 3.3 cm. Subjectively, there does not appear to be much amniotic fluid elsewhere. The fetus was active and demonstrated normal breathing movements. There was normal flexion and extension of the trunk and extremities. IMPRESSION: Normal biophysical profile score of 8 out of 8. Subjectively decreased four-quadrant JOHN. Single deepest pocket however is normal. Dictated by Pawel Sanchez MD @ 07/06/2022 9:51:25 AM (Electronically Signed)
--- OUTSIDE RECORDS SUMMARY | 2022-07-06 07:17 | XMS_ITS | Encounter Summary ---
:1990 Author Organization [employer] Address [address], [place] [address] Care Team Providers Name Role Phone Unassigned, Provider Primary Care Provider Unavailable Reason for Visit Reason Comments SORE THROAT, cough, chest cold Encounter Details Date Type Department Care Team Description 10/19/2009 Office Visit Urgent Care [facility] axillary Sinusitis (Primary Dx); [place] Acute Pharyngitis [address] [place], [place] [address] Social History Tobacco Use Types Packs/Day Years Used Date Smoking Tobacco: Never Assessed Sex Assigned at Date Recorded Not on file documented as of this encounter Last Filed Vital Signs Vital Sign Reading Time Taken Comments Blood Pressure 144/96 10/19/2009 7:00 PM TIP FINISHER Pulse 78 10/19/2009 7:00 PM TIP FINISHER Temperature 37.2 ??C (98.9 ??F) 10/19/2009 7:00 PM TIP FINISHER Respiratory Rate 18 10/19/2009 7:00 PM TIP FINISHER Oxygen Saturation - - Inhaled Oxygen Concentration - - Weight 64.6 kg (142 lb 6 oz) 10/19/2009 7:00 PM TIP FINISHER Height - - Body Mass Index - - documented in this encounter Patient Instructions Patient InstructionsRyan Townsend - 10/19/2009 8:00 PM CST HP Sinusitis sheet given, emphasized saline rinses. Neti pot info and discussion given. FINISHER documented in this encounter Progress Notes Xochilt Enriquez RN - 10/21/2009 6:14 PM TIP FINISHER Quick Note: Strep culture results noted: Negative Nita Enriquez RN FINISHER Ryan Townsend - 10/19/2009 7:28 PM CST [...] to improve as anticipated. Ryan Townsend MD FINISHER documented in this encounter Plan of Treatment Upcoming Encounters Date Type Specialty Care Team Description 07/14/2022 Telemedicine Diabetes Program Yahaira Arrieta, RD N, LD, [facility] [address] [facility] [place] [address] (Wo rk) documented as of this encounter Procedures Procedure Name Priority Date/Time Associated Diagnosis Comme nts STREP GRP A, RAPID Waiting 10/19/2009 7:18 PM Acute Pharyngiti s Results for this SCREEN TIP FINISHER procedure are i n the results section. STREP GRP A, THROAT Routine 10/19/2009 7:18 PM Acute Pharyngit is Results for this CULTURE ONLY TIP FINISHER procedure are i n the results section. documented in this encounter Results STREP GRP A, THROAT CULTURE ONLY (10/19/2009 7:18 PM TIP FINISHER) [facility] gist Method Time Signature Grp A Culture Negative [facility] Final Specimen Anatomical Collection Method Collection Time Receive d Time (Source) Location / / Volume Laterality 10/19/2009 7:18 PM 200 9 7:22 TIP FINISHER PM TIP FINISHER Ryan Townsend MD LAB_1 Performing Organization Address City/[facility] Phon e Number [employer] [phone] [address] STREP GRP A, RAPID SCREEN (10/19/2009 7:18 PM TIP FINISHER) [facility] gist Method Time Signature Grp A Rapid Negative [facility] Screen Specimen Anatomical Collection Method Collection Time Receive d Time (Source) Location / / Volume Laterality 10/19/2009 7:18 PM 200 9 7:22 TIP FINISHER PM TIP FINISHER Ryan Townsend MD LAB_1 Performing Organization Address City/[facility] Phon e Number [employer] [phone] [address] documented in this encounter Visit Diagnoses Diagnosis Acute maxillary sinusitis - Primary Acute pharyngitis documented in this encounter Care Teams Retail Cosmetics Sales Beauty Advisor Relationship Specialty Start Date End Date Unassigned, Provider PCP - General 08/17/09 01/16/10 [address] [place] [address] documented as of this encounter
--- OUTSIDE RECORDS SUMMARY | 2022-07-06 07:17 | XMS_ITS | Encounter Summary ---
:1990 Author Organization [employer] Address [address] [place] [address] Care Team Providers Name Role Phone Joel Anguiano MD Primary Care Provider Reason for Visit Reason Comments CONGESTION, NASAL Sore Throat EARACHE Encounter Details Date Type Department Care Team Description 04/30/2010 Office Visit [facility] Apple Sore roat (Primary Dx); [place] URI (Upper Respiratory Infec tion) [address] [place], [place] [address] Social History Tobacco Use [...] Diabetes Program Yahaira Arrieta, RD N, LD, [facility] [address] [facility] [address] (Wo rk) documented as of this encounter [...] THROAT CULTURE ONLY (04/30/2010 12:27 PM CDT) [facility] Method Time Signature Grp A Culture Negative [facility] Final Specimen Anatomical Collection Method Collection Time Receive d Time (Source) Location / / Volume Laterality 04/30/2010 12:27 04/30/2010 PM CDT 12:35 PM CDT Alycia Hernadez MD LAB_1 Performing Organization Address City/[facility] Code Phon e Number [facility] [phone] [address] STREP GRP A, RAPID SCREEN (04/30/2010 12:27 PM CDT) [facility] gist Method Time Signature Grp A Rapid Negative [facility] Screen Specimen Anatomical Collection Method Collection Time Receive d Time (Source) Location / / Volume Laterality 04/30/2010 12:27 04/30/2010 PM CDT 12:35 PM CDT Alycia Hernadez MD LAB_1 Performing Organization Address [facility] Code Phon e Number [facility] [phone] [address] documented in this encounter Visit Diagnoses Diagnosis Sore throat - Primary Acute pharyngitis URI (upper respiratory infection) Acute upper respiratory infections of un specified site documented in this encounter Care Teams Manager Country Relationship Specialty Start Date End Date Joel Anguiano MD PCP - General 01/17/10 11/13/10 [address] [place] [address] documented as of this encounter
--- OUTSIDE RECORDS SUMMARY | 2022-07-06 07:17 | XMS_ITS | Encounter Summary ---
:1990 Author Organization [employer] Address [address] [place] [address] Care Team Providers Name Role Phone Joel Anguiano MD Primary Care Provider Reason for Visit Reason Comments SKIN PROBLEM MOLE under rt arm Encounter Details Date Type Department Care Team Description 06/30/2010 Office Visit [place] [facility] Sheng Leblanc D ermatitis (Primary Dx); Medicine MD Gerardo [address] [place], [place] [address] [place], [place] [phone] [address] Social History Tobacco Use Types Packs/Day Years [...] Diabetes Program Yahaira Arrieta, RD N, LD, [facility] [address] [facility] N [address] (Wo rk) documented as of this encounter Visit Diagnoses Diagnosis Dermatitis - Primary Contact dermatitis and other eczema, due to unspecified cause Acrochordon Unspecified hypertrophic and atrophic co ndition of skin documented in this encounter Care Teams Battery Tester And Repairer Relationship Specialty Start Date End Date Joel Anguiano MD PCP - General 01/17/10 11/13/10 [address] [place] [address] documented as of this encounter
--- OUTSIDE RECORDS SUMMARY | 2022-07-06 07:17 | XMS_ITS | Encounter Summary ---
:1990 Author Organization [email or web address] Address [address], [place] [address] Care Team Providers Name Role Phone Max Heydi Hammer PA-C Primary Care Provider [phone] Encounter Details Date Type Department Care Team Description 03/12/2012 Lab Visit [facility] , incidental [address] [place] [address] Social History Tobacco Use Types Packs/Day Years Used Date Smoking Tobacco: Never Alcohol Use Standard Drinks/Week Comments No 0 (1 standard drink = 0.6 oz pure alcoho l) Sex Assigned at Date Recorded Not on file documented as of this encounter Plan of Treatment Upcoming Encounters Date Type Specialty Care Team Description 07/14/2022 Telemedicine Diabetes Program Yahaira Arrieta, RD N, LD, [facility] [address] [facility] [address] (Wo rk) documented as of this [...] - 03/12/2012 1:33 PM CDT Performed at [facility], [address] [place] [address] Zack Yun MD LAB_1 Performing Organization Address City/State/ZIP Code Phon e Number [facility] CONVERSION documented in this encounter Visit Diagnoses Diagnosis , incidental state, incidental documented in this encounter Care Teams Clinical Documentation Developer Relationship Specialty Start Date End Date Heydi Santana PA-C PCP - General 11/14/10 [address] [facility] [place] [address] documented as of this encounter
--- OUTSIDE RECORDS SUMMARY | 2022-07-06 07:17 | XMS_ITS | Encounter Summary ---
:1990 Author Organization [employer] Address [address], [place] [address] Care Team Providers Name Role Phone Heydi Santana Jaquelin RENNER Primary Care Provider [phone] Encounter Details Date Type Department Care Team Description 03/26/2009 Office Visit [place] [facility] Alison Aguirre MD Medicine [address] [place], [place] [phone] (Wo rk) Social History Tobacco Use Types [...] 1344 Note Time: 03/26/09 0001 Status: Signed Industrial Fabric Cutter: Arturo Aguirre MD (Physician) Acute Clinic Visit [...] today on the Health Profile screen of [facility]. Chronic Medications: None. OBJECTIVE: Vital Signs: Vital Signs taken today [facility]. General Appearance: Well-appearing Eyes: External exam [...] Diabetes Program Yahaira Arrieta, RD N, LD, [facility] [address] [place] [address] (Wo rk) documented as of this encounter Visit Diagnoses Not on filedocumented in this encounter Care Teams Head Mechanic Relationship Specialty Start Date End Date Heydi Santana PA-C PCP - General 11/14/10 [address] [place] [address] documented as of this encounter
--- OUTSIDE RECORDS SUMMARY | 2022-07-06 07:17 | XMS_ITS | Encounter Summary ---
:1990 Author Organization [employer] Address [address] [place] [address] Care Team Providers Name Role Phone MaxHeydi christensen Jaquelin RENNER Primary Care Provider [phone] Reason for Visit Reason Comments Sore Throat HEADACHE Encounter Details Date Type Department Care Team Description 05/25/2011 Office Visit [facility] Angelique Wilkinson MD Acute pharyngitis (Primary Dx); Practice [address] Reactive airway disease; [address] [place], [place] Sore throat [place], [place] [phone] Social History Tobacco Use Types Packs/Day Years [...] Diabetes Program Yahaira Arrieta, RD N, LD, [facility] [address] [place] [address] (Wo rk) documented as of this encounter [...] THROAT CULTURE ONLY (05/25/2011 2:07 PM CDT) [facility] Method Time Signature Grp A Culture Negative [facility] Final Specimen Anatomical Collection Method Collection Time Receive d Time (Source) Location / / Volume Laterality 05/25/2011 2:07 PM 1 2:24 CDT PM CDT Angelique Wilkinson MD LAB_1 Performing Organization Address City/[facility] Phon e Number [facility] [phone] [address] STREP GRP A, RAPID SCREEN (05/25/2011 2:07 PM CDT) [facility] Method Time Signature Grp A Rapid Negative [facility] Screen Specimen Anatomical Collection Method Collection Time Receive d Time (Source) Location / / Volume Laterality 05/25/2011 2:07 PM 1 2:24 CDT PM CDT Angelique Wilkinson MD LAB_1 Performing Organization Address [facility] Phon e Number [employer] [phone] [address] documented in this encounter Visit Diagnoses Diagnosis Acute pharyngitis - Primary Reactive airway disease (HRC) Unspecified asthma Sore throat Acute pharyngitis documented in this encounter Care Teams Crop Or Grain Farmer Relationship Specialty Start Date End Date Heydi Santana PA-C PCP - General 11/14/10 [address] [place] [address] documented as of this encounter
--- OUTSIDE RECORDS SUMMARY | 2022-07-06 07:17 | XMS_ITS | Encounter Summary ---
:1990 Author Organization [facility] Address [address] [place] [address] Care Team Providers Name Role Phone Heydi Santana PA-C Primary Care Provider [phone] Encounter Details Date Type Department Care Team Description 03/26/2009 PN Conversion Only [facility] [address] [place] [address] Social History Tobacco Use Types Packs/Day Years Used Date Smoking Tobacco: Never Assessed Sex Assigned at Date Recorded Not on file documented as of this encounter Plan of Treatment Upcoming Encounters Date Type Specialty Care Team Description 07/14/2022 Telemedicine Diabetes Program Yahaira Arrieta, NATANAEL N, LD, [facility] [address] [facility] N [address] (Wo rk) documented as of this encounter Visit Diagnoses Not on filedocumented in this encounter Care Teams Fire Suppression Captain Relationship Specialty Start Date End Date Heydi Santana PA-C PCP - General 11/14/10 [address] [place], [place] [address] documented as of this encounter
--- OUTSIDE RECORDS SUMMARY | 2022-07-06 07:17 | XMS_ITS | Encounter Summary ---
:1990 Author Organization [employer] Address [address], [place] [address] Care Team Providers Name Role Phone Heydi Santana PA-C Primary Care Provider [phone] Reason for Visit Reason Comments Other Encounter Details Date Type Department Care Team Description 06/22/2022 Telephone [facility] [address] Celina Deleon PA-C Other Endocrinology [address] [place] [address] [place] [address] [phone] Social History Tobacco Use Types Packs/Day Years [...] N, LD, [facility] [address] [facility] [address] [address] (Wo rk) documented as of this encounter Visit Diagnoses Not on filedocumented in this encounter Care Teams Special Needs Child Caregiver Relationship Specialty Start Date End Date Heydi Santana PA-C PCP - General 11/14/10 [address] [place] [address] documented as of this encounter
--- OUTSIDE RECORDS SUMMARY | 2022-07-06 07:17 | XMS_ITS | Encounter Summary ---
:1990 Author Organization [employer] Address [address] [place] [address] Care Team Providers Name Role Phone Joel Anguiano MD Primary Care Provider Reason for Visit Reason Comments Sore Throat EARACHE left HEADACHE Encounter Details Date Type Department Care Team Description 10/05/2010 Office Visit [facility] Heydi Santana ( upper respiratory infection) (Primary Dx); Practice ZUR[facility] Hammer Sore throat; [address] Rhinitis; [place], [place] [address] [place], [place] TMJ disorder [phone] [address] Social History Tobacco Use Types Packs/Day Years Used Date Smoking Tobacco: Never Alcohol Use Standard Drinks/Week Comments No 0 (1 standard drink = 0.6 oz pure alcoho l) Sex Assigned at Date Recorded Not on file documented as of this encounter Last Filed Vital Signs Vital Sign Reading Time Taken Comments Blood Pressure 116/74 10/05/2010 1:46 PM BLIND SLAT STAPLING MACHINE OPERATOR Pulse 76 10/05/2010 1:46 PM BLIND SLAT STAPLING MACHINE OPERATOR Temperature 37.1 ??C (98.7 ??F) 10/05/2010 1:46 PM BLIND SLAT STAPLING MACHINE OPERATOR Respiratory Rate 16 10/05/2010 1:46 PM BLIND SLAT STAPLING MACHINE OPERATOR Oxygen Saturation - - Inhaled Oxygen Concentration - - Weight 62 kg (136 lb 9.6 oz) 10/05/2010 1:46 PM BLIND SLAT STAPLING MACHINE OPERATOR Height - - Body Mass Index [...] candy/gum/tough meats to chew. Heydi Santana PA-C D SLAT STAPLING MACHINE OPERATOR documented in this encounter Progress Notes Sita Barker RN - 10/06/2010 4:17 PM BLIND SLAT STAPLING MACHINE OPERATOR Quick Note: Letter sent. Herminia Barker LPN Nurse for [facility] D SLAT STAPLING MACHINE OPERATOR Heydi Santana - 10/06/2010 8:32 AM BLIND SLAT STAPLING MACHINE OPERATOR Quick Note: Neg cx Heydi Santana PA-C D SLAT STAPLING MACHINE OPERATOR Heydi Santana - 10/05/2010 2:17 PM BLIND SLAT STAPLING MACHINE OPERATOR Quick Note: Reviewed neg strep with pt pending cx Heydi Santana PA-C D SLAT STAPLING MACHINE OPERATOR Heydi Santana - 10/05/2010 11:45 AM CST [...] to improve as anticipated. Heydi Santana PA-C D SLAT STAPLING MACHINE OPERATOR documented in this encounter Plan of Treatment Upcoming Encounters Date Type Specialty Care Team Description 07/14/2022 Telemedicine Diabetes Program Yahaira Arrieta, RD N, LD, [facility] [address] [facility] N [address] (Wo rk) documented as of this encounter Procedures Procedure Name Priority Date/Time Associated Diagnosis Comme nts STREP GRP A, RAPID Waiting 10/05/2010 1:52 PM Sore throat Res ults for this SCREEN BLIND SLAT STAPLING MACHINE OPERATOR procedure are i n the results section. STREP GRP A, THROAT Routine 10/05/2010 1:52 PM Re sults for this CULTURE ONLY BLIND SLAT STAPLING MACHINE OPERATOR procedure are i n the results section. documented in this encounter Results STREP GRP A, THROAT CULTURE ONLY (10/05/2010 1:52 PM BLIND SLAT STAPLING MACHINE OPERATOR) Patholo gist Method Time Signature Grp A Culture Negative [facility] Final Specimen Anatomical Collection Method Collection Time Receive d Time (Source) Location / / Volume Laterality 10/05/2010 1:52 PM 0 2:05 BLIND SLAT STAPLING MACHINE OPERATOR PM BLIND SLAT STAPLING MACHINE OPERATOR Heydi Santana PA-C LAB_1 Performing Organization Address [facility] Phon e Number [facility] [phone] [phone] STREP GRP A, RAPID SCREEN (10/05/2010 1:52 PM BLIND SLAT STAPLING MACHINE OPERATOR) [facility] gist Method Time Signature Grp A Rapid Negative [facility] Screen Specimen Anatomical Collection Method Collection Time Receive d Time (Source) Location / / Volume Laterality 10/05/2010 1:52 PM 0 2:05 BLIND SLAT STAPLING MACHINE OPERATOR PM BLIND SLAT STAPLING MACHINE OPERATOR Heydi Santana PA-C LAB_1 Performing Organization Address [facility] Phon e Number [employer] [phone] [address] documented in this encounter Visit Diagnoses Diagnosis URI (upper respiratory infection) - Prim prosper Acute upper respiratory infections of un specified site Sore throat Acute pharyngitis Rhinitis Chronic rhinitis TMJ disorder Temporomandibular joint disorders, unspe cified documented in this encounter Care Teams Spot Sprayer Relationship Specialty Start Date End Date Joel Anguiano MD PCP - General 01/17/10 11/13/10 [address] [place] [address] documented as of this encounter
--- OUTSIDE RECORDS SUMMARY | 2022-07-06 07:17 | XMS_ITS | Encounter Summary ---
:1990 [address] [facility] [address] Address [address] [place] [address] Care Team Providers Name Role Phone Joel Anguiano MD Primary Care Provider Reason for Visit Reason Comments Ear Pain SORE THROAT, HEADACHE Encounter Details Date Type Department Care Team Description 03/11/2010 Office Visit [place] [facility] Benjamin Zuniga i, MD Acute Sinusitis, Unspecified (Primary Dx ); Medicine [address] Reactive Airway Disease [address] [place], [place] [address] [phone] Social History Tobacco Use Types Packs/Day Years [...] as needed for pain or acetaminophen 325 lp1426 mg every four hours. To thin and wash out thick mucus and soothe inflamed nasal tissues use salt water (saline) nasal spray (such as Trigg). Two sprays each side, wait 20 to [...] designed for nasal irrigation - purchase from [employer] or [employer]) in a similar manner described above. This is the easiest and most comfortable method. Use saline nasal irrigation once a day to maintain health of the nasal passages, and two or more times a day for active treatment of symptoms. With a little practice, this technique becomes almost as quick and easy as brushing your teeth. ?? [address] [place]. documented in this encounter Progress Notes Rox [...] Program Yahaira Arrieta, RD N, LD, [facility] [address] [place] N [address] (Wo rk) documented as of this encounter Visit Diagnoses Diagnosis Acute sinusitis, unspecified - Primary Reactive airway disease (HRC) Unspecified asthma documented in this encounter Care Teams Analysis Specialist Relationship Specialty Start Date End Date Joel Anguiano MD PCP - General 01/17/10 11/13/10 [address] [place] [address] documented as of this encounter
--- OUTSIDE RECORDS SUMMARY | 2022-07-06 07:17 | XMS_ITS | Encounter Summary ---
:1990 Author Organization [facility] Address [address] [place] [address] Care Team Providers Name Role Phone Heydi Santana Jaquelin RENNER Primary Care Provider [phone] Encounter Details Date Type Department Care Team Description 03/26/2009 PN Conversion Only [facility] Arturo Aguirre MD [address] [place] [address] [place] [address] (Wo rk) Social History Tobacco Use Types Packs/Day Years Used Date Smoking Tobacco: Never Assessed Sex Assigned at Date Recorded Not on file documented as of this encounter Plan of Treatment Upcoming Encounters Date Type Specialty Care Team Description 07/14/2022 Telemedicine Diabetes Program Yahaira Arrieta, RD N, LD, [facility] [address] [facility] N [address] (Wo rk) documented as of this encounter [...] Arturo Aguirre MD LAB_1 Performing Organization Address [facility] Phon e Number HP CONVERSION Beta Strep Followup (03/26/2009 3:15 PM CDT) P athologist Signature Strep Screen SEE TEXT HP CONVERSION Comment: Patient: DILLAN MATA Rapid Strep Follow up Culture ? Collected: ??[id number] ??[id number] Source: Throat ?Processed: ??[id number] ??[id number] ? 1B Final Report ------ ?[id number] ??[id number] No beta hemolytic Strep group A isolated . Specimen (Source) Anatomical Collection Method Collection Time Re ceived Time Location / / Volume Laterality 03/26/2009 3:15 PM CDT Arturo Aguirre MD LAB_1 Performing Organization Address [facility] Phon e Number HP CONVERSION documented in this encounter Visit Diagnoses Not on filedocumented in this encounter Care Teams Order Planner Relationship Specialty Start Date End Date Heydi Santana PA-C PCP - General 11/14/10 [address] [place] [address] documented as of this encounter
--- OUTSIDE RECORDS SUMMARY | 2022-07-06 07:17 | XMS_ITS | Encounter Summary ---
:1990 Author Organization [facility] Address [address] [place] [address] Care Team Providers Name Role Phone Unassigned, Provider Primary Care Provider Unavailable Reason for Visit Reason Comments EXAM,ROUTINE With glasses, no problems, l azy right eye Encounter Details Date Type Department Care Team Description 09/06/2009 Office Visit [facility] ConsoerYunior, Examination of Eyes and Visi on (Primary Dx); [address] OD Refractive Amblyopia; [place], [place] [address] Monocular Exotropia; [phone] Myopia; Unspecified Ast igmatism Social History Tobacco Use Types Packs/Day Years Used Date Smoking Tobacco: Never Assessed Sex Assigned at Date Recorded Not on file documented as of this encounter Patient Instructions Patient InstructionsConsoerYunior - 09/06/2009 12:08 PM CST Thank you for choosing [facility] for your eye care needs. Many tests [...] the clinic in the future? Appointment Center: [phone] Eye Dept: [phone] Online Services: [email or web address] For after hours care, call the CareLine at [phone] or . We look forward to taking [...] lenses. Sometimes surgery is needed or desirable. CONTRACTOR documented in this encounter Progress Notes Yuinor Galicia - 09/06/2009 12:08 PM CST HPI Chief Complaint Patient presents with ??? EXAM,ROUTINE With glasses, no problems, lazy right eye History Reviewed Assessment Myopia Astigmatism Amblyopia Exotropia Plan Spectacle Prescription given Return to clinic in 1 year(s) for REE. Arvin Galicia, OD CONTRACTOR documented in this encounter Plan of Treatment Upcoming Encounters Date Type Specialty Care Team Description 07/14/2022 Telemedicine Diabetes Program Yahaira Arrieta, NATANAEL N, LD, [facility][NOTE 3] [address] [facility] N [address] (Wo rk) documented as of this encounter Visit Diagnoses Diagnosis Examination of eyes and vision - Primary Refractive amblyopia Monocular exotropia Myopia Astigmatism, unspecified documented in this encounter Care Teams Ammonium Nitrate Neutralizer Relationship Specialty Start Date End Date Unassigned, Provider PCP - General 08/17/09 01/16/[address] [place] [address] documented as of this encounter
--- OUTSIDE RECORDS SUMMARY | 2022-07-06 07:17 | XMS_ITS | Encounter Summary ---
:1990 Author Organization [facility] Address [address] [place] [address] Care Team Providers Name Role Phone Heydi Santana PA-C Primary Care Provider [phone] Encounter Details Date Type Department Care Team Description 10/04/2004 PN Conversion Only [place] [facility] N [address] [place] [place] [address] Social History Tobacco Use Types Packs/Day Years Used Date Smoking Tobacco: Never Assessed Sex Assigned at Date Recorded Not on file documented as of this encounter Plan of Treatment Upcoming Encounters Date Type Specialty Care Team Description 07/14/2022 Telemedicine Diabetes Program Yahaira Arrieta, RD N, LD, [facility] [address] [facility] N [address] (Wo rk) documented as of this encounter Visit Diagnoses Not on filedocumented in this encounter Care Teams Mortgage Loan Specialist Relationship Specialty Start Date End Date Heydi Santana PA-C PCP - General 11/14/10 [address] [place], [place] [address] documented as of this encounter
--- OUTSIDE RECORDS SUMMARY | 2022-07-06 07:17 | XMS_ITS | Encounter Summary ---
:1990 Author Organization [facility] Address [address], [place] [address] Care Team Providers Name Role Phone Heydi Santana PA-C Primary Care Provider [phone] Encounter Details Date Type Department Care Team Description 11/13/2003 PN Conversion Only [place] CONVERSION [address] [place] [address] Social History Tobacco Use Types Packs/Day Years Used Date Smoking Tobacco: Never Assessed Sex Assigned at Date Recorded Not on file documented as of this encounter Plan of Treatment Upcoming Encounters Date Type Specialty Care Team Description 07/14/2022 Telemedicine Diabetes Program Yahaira Arrieta, NATANAEL N, LD, [facility] [address] [facility] N [address] (Wo rk) documented as of this encounter Visit Diagnoses Not on filedocumented in this encounter Care Teams Grain Operator Relationship Specialty Start Date End Date Heydi Santana PA-C PCP - General 11/14/10 [address] [place] [place], [place] [address] documented as of this encounter
--- OUTSIDE RECORDS SUMMARY | 2022-07-06 07:17 | XMS_ITS | Encounter Summary ---
:1990 Author Organization [facility] Address [address], [place] [address] Care Team Providers Name Role Phone Heydi Santana PA-C Primary Care Provider [phone] Encounter Details Date Type Department Care Team Description 12/07/2003 PN Conversion Only [place] CONVERSION [address] [place] [address] Social History Tobacco Use Types Packs/Day Years Used Date Smoking Tobacco: Never Assessed Sex Assigned at Date Recorded Not on file documented as of this encounter Plan of Treatment Upcoming Encounters Date Type Specialty Care Team Description 07/14/2022 Telemedicine Diabetes Program Yahaira Arrieta, NATANAEL N, LD, [facility] [address] [facility] N [address] (Wo rk) documented as of this encounter Visit Diagnoses Not on filedocumented in this encounter Care Teams Lean Leader Relationship Specialty Start Date End Date Heydi Santana PA-C PCP - General 11/14/10 [address] [place], [place] [address] documented as of this encounter
--- OUTSIDE RECORDS SUMMARY | 2022-07-06 07:17 | XMS_ITS | Encounter Summary ---
:1990 Author Organization [facility] Address [address], [place] [address] Care Team Providers Name Role Phone Max, Heydi Hammer PA-C Primary Care Provider [phone] Reason for Visit Reason Comments APPOINTMENT REQUEST Referral for GDM Encounter Details Date Type Department Care Team Description 06/07/2022 Telephone [facility] 3800 Nurse, P3800 End APPOINTMENT REQUEST Endocrinology [address] (Referral for GDM) [address] [place] [id number] Social History Tobacco Use Types Packs/Day Years [...] 11:58 AM CDT Faxed referral rec'd from [facility] for GDM, records sent to [facility] doc documented in this encounter Plan of Treatment Upcoming Encounters Date Type Specialty Care Team Description 07/14/2022 Telemedicine Diabetes Program Yahaira Arrieta, RD N, LD, [facility] [address] [facility] [address] Jose Cierra [address] (Wo rk) documented as of this encounter Visit Diagnoses Not on filedocumented in this encounter Care Teams Laser Specialist Relationship Specialty Start Date End Date Heydi Santana PA-C PCP - General 11/14/10 [address] [place] [address] documented as of this encounter
--- OUTSIDE RECORDS SUMMARY | 2022-07-06 07:17 | XMS_ITS | Encounter Summary ---
:1990 Author Organization [facility] Address [address], [place] [address] Care Team Providers Name Role Phone Heydi Santana PA-C Primary Care Provider [phone] Reason for Visit Reason Comments Chest Pain Encounter Details Date Type Department Care Team Description 10/25/2011 Hospital Encounter Maria R King sinusitis, unspecified; Care MD Kim Unspecified asthma, with exacerbation [address] [facility] [address] [place], [place] [phone] [address] Social History Tobacco Use Types Packs/Day Years Used Date Smoking Tobacco: Never Alcohol Use Standard Drinks/Week Comments No 0 (1 standard drink = 0.6 oz pure alcoho l) Sex Assigned at Date Recorded Not on file documented as of this encounter Last Filed Vital Signs Vital Sign Reading Time Taken Comments Blood Pressure 123/78 10/25/2011 1:10 PM MOTOR BUILDER WINDER Pulse 84 10/25/2011 1:10 PM MOTOR BUILDER WINDER Temperature 37.2 ??C (99 ??F) 10/25/2011 1:10 PM MOTOR BUILDER WINDER Respiratory Rate 16 10/25/2011 1:10 PM MOTOR BUILDER WINDER Oxygen Saturation 99% 10/25/2011 1:10 PM MOTOR BUILDER WINDER Inhaled Oxygen Concentration - - Weight - [...] Date:11/04/11, Frequency:2 TIMES DAILY *No Administrations Recorded R BUILDER WINDER documented in this encounter Plan of Treatment Upcoming Encounters Date Type Specialty Care Team Description 07/14/2022 Telemedicine Diabetes Program Yahaira Arrieta, RD N, LD, [facility] [address] [facility] N [address] (Wo rk) documented as of this encounter Visit Diagnoses Diagnosis Acute sinusitis, unspecified Unspecified asthma, with exacerbation (H RC) Unspecified asthma, with exacerbation documented in this encounter Care Teams Fitness Specialist Relationship Specialty Start Date End Date Heydi Santana PA-C PCP - General 11/14/10 [address] [place], [place] [address] documented as of this encounter
--- OUTSIDE RECORDS SUMMARY | 2022-07-06 07:17 | XMS_ITS | Clinical Summary ---
:1990 Author Organization [facility] Address [address], [place] [address] Care Team Providers Name Role Phone Hedyi Santana PA-C Primary Care Provider [phone] Source Comments You are receiving this [...] for each transition of care or referral. [facility] Allergies No known active allergies Medications Medication [...] 37.2 ??C (99 ??F) 10/25/2011 1:10 PM GROUP MANAGER Respiratory Rate 16 10/25/2011 1:10 PM GROUP MANAGER Oxygen Saturation 99% 10/25/2011 1:10 PM GROUP MANAGER Inhaled Oxygen Concentration - - Weight 68.5 kg (151 lb) 06/22/2022 5:04 PM patient repo rted CDT Height - - Body Mass Index - - Plan of Treatment Upcoming Encounters Date Type Specialty Care Team Description 07/14/2022 Telemedicine Diabetes Program Yahaira Arrieta, RD N, LD, [facility] [address] [place] N [address] (Wo rk) Health Maintenance Due Date Last [...] Phone Addre ss Type Group [facility] [id number] 2021-Present [phone] CLAIMS Medicaid [address] [place] [address] Lulu Mata Personal/Family Self [address] (Home) [place], [place] [phone] [address] (Work) Lulu Mata Personal/Family Self 1990 [address] (Home) [place] [phone] [place] (Work) [address] Care Teams Superintendent Circus Relationship Specialty Start Date End Date Heydi Santana PA-C PCP - General 11/14/10 [address] [place], [place] [address]
--- OUTSIDE RECORDS SUMMARY | 2022-07-06 07:17 | XMS_ITS | Encounter Summary ---
:1990 Author Organization [facility] Address [address] [place] [address] Care Team Providers Name Role Phone MaxHeydi christensen Jaquelin RENNER Primary Care Provider [phone] Encounter Details Date Type Department Care Team Description 10/04/2004 PN Conversion Only [place] [facility] N Patito Jorge A, [address] POKER ROOM MANAGER, ALGEBRA TUTOR [address] [place] [address] [address] [place], [place] [address] Social History Tobacco Use Types Packs/Day Years Used Date Smoking Tobacco: Never Assessed Sex Assigned at Date Recorded Not on file documented as of this encounter Plan of Treatment Upcoming Encounters Date Type Specialty Care Team Description 07/14/2022 Telemedicine Diabetes Program Yahaira Arrieta, RD N, LD, [facility] [address] [facility] N [address] (Wo rk) documented as of this encounter Procedures Procedure Name Priority Date/Time Associated Diagnosis Comme nts STREP GROUP A Routine 10/04/2004 3:11 PM Results for this ANTIGEN TEST ROOFING FOREMAN procedure are i n the results section. BETA STREP FOLLOWUP Routine 10/04/2004 3:11 PM Re sults for this ROOFING FOREMAN procedure are i n the results section. documented in this encounter Results Strep Group A Antigen Test (10/04/2004 3:11 PM ROOFING FOREMAN) Analysis Performed At [facility] logist Time Signature Strep Group A Negative Negative HP CONVERSION Antigen Test Comment: Culture to follow. Specimen (Source) Anatomical Collection Method Collection Time Re ceived Time Location / / Volume Laterality 10/04/2004 3:11 PM ROOFING FOREMAN Patito Jorge APRN, [facility] [facility] Phon e Number HP CONVERSION Beta Strep Followup (10/04/2004 3:11 PM ROOFING FOREMAN) P athologist Signature Strep Screen SEE TEXT HP CONVERSION Comment: Patient: DILLAN MATA Rapid Strep Follow up Culture @ ? Collected: ??[id number] ??[id number] Source: Throat ?Processed: ??[id number] ??1512 Final Report ------ ?[id number] ??[id number] No beta hemolytic Strep group A isolated . @ = Rapid F/U Cult Performed at ??[address] [place], [place] ?[address] Specimen (Source) Anatomical Collection Method Collection Time Re ceived Time Location / / Volume Laterality 10/04/2004 3:11 PM ROOFING FOREMAN Patito Jorge APRN, [facility]_1 Performing Organization Address [facility] Phon e Number HP CONVERSION documented in this encounter Visit Diagnoses Not on filedocumented in this encounter Care Teams Commercial Green Building Designer Relationship Specialty Start Date End Date Heydi Santana PA-C PCP - General 11/14/10 [address] [facility] [place] [address] documented as of this encounter
--- OUTSIDE RECORDS SUMMARY | 2022-07-06 07:17 | XMS_ITS | Encounter Summary ---
:1990 Author Organization [facility] Address [address] [address] Care Team Providers Name Role Phone MaxHeydi christensen Jaquelin RENNER Primary Care Provider [phone] Encounter Details Date Type Department Care Team Description 10/04/2004 [facility] Patito Castillo APRN, [address] [place] [address] [phone] [place], [place] [address] Social History Tobacco Use Types Packs/Day Years Used Date Smoking Tobacco: Never Assessed Sex Assigned at Date Recorded Not on file documented as of this encounter Progress Notes Patito Jorge - 10/04/2004 12:01 AM CST Progress Notes signed by Patito Jorge APRN, AUTOMOTIVE TECHNICIAN at 10/04/04 1502 Author: HÉCTOR Martin Service: (none) Author Type: Nurse Practitioner Filed: 02/10/11 0201 Note Time: 10/04/04 0001 Status: Signed Casting Operator Helper: HÉCTOR Martin (Nurse Practitioner) Acute Clinic Visit [...] today on the Health Profile screen of [facility] Chronic Medications: None: OBJECTIVE: Vital Signs: T: [...] ~Shorthand Note completed on: 10/04/2004 2:17 PM RUCTOR LOOPING documented in this encounter Plan of Treatment Upcoming Encounters Date Type Specialty Care Team Description 07/14/2022 Telemedicine Diabetes Program Yahaira Arrieta, RD N, LD, [facility] [address] [facility] [address] N [address] (Wo rk) documented as of this encounter Visit Diagnoses Not on filedocumented in this encounter Care Teams Braille Duplicating Machine Operator Relationship Specialty Start Date End Date Heydi Santana PA-C PCP - General 11/14/10 [address] [place], [place] [address] documented as of this encounter
--- OUTSIDE RECORDS SUMMARY | 2022-07-06 07:17 | XMS_ITS | Encounter Summary ---
:1990 Author Organization [facility] Address [address] [place] [address] Care Team Providers Name Role Phone Heydi Santana Jaquelin RENNER Primary Care Provider Encounter Details Date Type Department Care Team Description 11/17/2003 [facility] Soumya Sorenson MD [place] [address] [facility] [address] [place] [address] [phone] Social History Tobacco Use Types Packs/Day Years Used Date Smoking Tobacco: Never Assessed Sex Assigned at Date Recorded Not on file documented as of this encounter Progress Notes Soumya Sorenson MD - 11/17/2003 12:01 AM CST Progress Notes signed by Soumya Sorenson MD at 06/01/048 Author: Soumya Sorenson MD Service: (none) Author Type: Physician Filed: 02/09/11 1824 Note Time: 11/17/03 0001 Status: Signed Certified Social Workers In Health Care: Soumya Sorenson MD (Physician) NAME: DILLAN MATA MR: [id number] ACCT: [id number] VISIT: [id number] DICTATING CLINICIAN: SOUMYA SORENSON MD JOB: [id number] CLINIC PROGRESS NOTE DATE OF VISIT: 11/17/2003 [...] Well-developed, well-nourished female in no acute distress. [id number] C: 12/01/03 11:11 DOCUMENT: [id number] documented in this encounter Plan of Treatment Upcoming Encounters Date Type Specialty Care Team Description 07/14/2022 Telemedicine Diabetes Program Yahaira Arrieta, RD N, LD, [facility] [address] [facility] Jose [place]CKEE N [address] (Wo rk) documented as of this encounter Visit Diagnoses Not on filedocumented in this encounter Care Teams Hospitalist Program Director Relationship Specialty Start Date End Date Heydi Santana PA-C PCP - General 11/14/10 [address] [place] [address] documented as of this encounter
--- OUTSIDE RECORDS SUMMARY | 2022-07-06 07:17 | XMS_ITS | Encounter Summary ---
:1990 Author Organization [employer] [facility] Address [address], [place] [address] Care Team Providers Name Role Phone Heydi Santana Jaquelin RENNER Primary Care Provider [phone] Reason for Visit Reason Comments Test Request Encounter Details Date Type Department Care Team Description 03/12/2012 Office Visit Zack Quintanilla Misse d period (Primary Dx); Medicine , incidental [address] [facility] [address] [place] [address] [place] [phone] [address] Social History Tobacco Use Types Packs/Day [...] signed by Zack Yun MD at 03/13/12 0993 Author: Zack Yun MD Service: (none) Author Type: Physician Filed: 03/13/1226 Note Time: 03/12/12 140 Status: Signed Loom Inspector: Zack Yun MD (Physician) NAME: DILLAN MATA MR#: [id number] CSN: [id number] AUTHENTICATING CLINICIAN: Zack Yun MD CONFIRM #: [id number] LOC: 3602 CLINIC PROGRESS NOTE DATE OF [...] return as needed. SJC:MEDPérez C: CONFIRM #: [id number] documented in this encounter Plan of Treatment Upcoming Encounters Date Type Specialty Care Team Description 07/14/2022 Telemedicine Diabetes Program Flaskerud, Yahaira M, RD N, LD, [facility] [address] [facility] Jose [place] N [address] (Wo rk) documented as of this encounter Visit Diagnoses Diagnosis Missed period - Primary Irregular menstrual cycle , incidental state, incidental documented in this encounter Care Teams Notary Public Relationship Specialty Start Date End Date Heydi Santana PA-C PCP - General 11/14/10 [address] [place] [address] documented as of this encounter
--- OUTSIDE RECORDS SUMMARY | 2022-07-06 07:17 | XMS_ITS | Encounter Summary ---
:1990 Author Organization [facility] Address [address] [address] Care Team Providers Name Role Phone Heydi Santana PA-C Primary Care Provider [phone] Encounter Details Date Type Department Care Team Description 11/02/2004 PN Conversion Only CONV [id number] Social History Tobacco Use Types Packs/Day Years Used Date Smoking Tobacco: Never Assessed Sex Assigned at Date Recorded Not on file documented as of this encounter Plan of Treatment Upcoming Encounters Date Type Specialty Care Team Description 07/14/2022 Telemedicine Diabetes Program Yahaira Arrieta, RD N, LD, [facility] [address] [facility] [place] [address] (Wo rk) documented as of this encounter Visit Diagnoses Not on filedocumented in this encounter Care Teams Formal Service Waiter Relationship Specialty Start Date End Date Heydi Santana PA-C PCP - General 11/14/10 [address] [place], [place] [address] documented as of this encounter
--- OUTSIDE RECORDS SUMMARY | 2022-07-06 07:17 | XMS_ITS | Encounter Summary ---
:1990 Author Organization [employer] Address [address] [address] Care Team Providers Name Role Phone Heydi Santana PA-C Primary Care Provider [phone] Reason for Visit Reason Comments FOLLOW-UP,DIABETES Encounter Details Date Type Department Care Team Description 06/22/2022 Telemedicine [facility] [address] Celina Deleon PA-C Gestational diabetes Endocrinology [address] [place] mellitus (GDM), [address] antepartum, [address] [place], [place] [address] method of control [id number] unspecified (Primary [phone] Dx) Social History Tobacco Use Types Packs/Day [...] from the original note were not included. [facility]: [address] [place] [address] [phone], Nurse Line: [phone] Gestational Diabetes Visit Note June 22, 2022 [...] Diabetes Program Yahaira Arrieta, RD N, LD, [facility] [address] [facility] [address] (Wo rk) documented as of this encounter Visit Diagnoses Diagnosis Gestational diabetes mellitus (GDM), ant epartum, gestational diabetes method of control unspecified - Primary documented in this encounter Care Teams Wire Tinner Relationship Specialty Start Date End Date Heydi Santana PA-C PCP - General 11/14/10 [address] [place] [address] documented as of this encounter
--- OUTSIDE RECORDS SUMMARY | 2022-07-06 07:17 | XMS_ITS | Encounter Summary ---
:1990 Author Organization [facility] Address [address], [place] [address] Care Team Providers Name Role Phone Heydi Santana PA-C Primary Care Provider [phone] Encounter Details Date Type Department Care Team Description 02/20/2011 PN Conversion Only [place] [facility] Jose Carlos Aguirre MD [facility] [address] [facility] 5320 [facility] bairon [place], [place] [address] [place], [place] [phone] (Wo rk) Social History Tobacco Use Types [...] LD, [facility] [address] [facility] N [address] (Wo rk) documented as of this encounter Visit Diagnoses Not on filedocumented in this encounter Care Teams Activities Director Scouting Relationship Specialty Start Date End Date Heydi Santana PA-C PCP - General 11/14/10 [address] [place], [place] [address] documented as of this encounter
--- OUTSIDE RECORDS SUMMARY | 2022-07-06 07:17 | XMS_ITS | Encounter Summary ---
:1990 Author Organization [facility] Address [address], [place] [address] Care Team Providers Name Role Phone Heydi Santana PA-C Primary Care Provider [phone] Reason for Referral Consult/Transfer Care (Routine) - New Request Specialty Diagnoses / Procedures Referred By Contact Refer red To Contact Diagnoses Gestational diabetes mellitus (GDM), antepartum, gestational diabetes method of control unspecified Celina Deleon PA-C [address] [place], [place] [address] Referral ID Status Reason Start Date Expiration Date Visits V isits Requested Authorized [id number] New Request 06/16/2022 09/15/2023 1 1 Scheduling Instructions Your provider has recommended an appoint ment with [facility]. You may call [phone] to schedule yo ur appointment. We suggest you call your health insurance company about your cove rage and benefits for this appointment. Encounter Details Date Type Department Care Team Description 06/16/2022 Notes/Orders [facility] [address] Celina Deleon PA-C Gestational diabetes Endocrinology [address] mellitus (GDM), [address] antepartum, Blvd. [place], [place] [address] method of control [phone] unspecified (Primary [phone] Dx) Social History Tobacco Use Types Packs/Day [...] Diabetes Program Yahaira Arrieta, RD N, LD, [facility] [address] [facility] [phone] (Wo rk) Scheduled Referrals Name Type Priority Associated Diagnoses Order S chedule Diabetes Education Referral Routine Gestational diabetes O rdered: 06/16/2022 Visit mellitus (GDM), antepartum, gestational diabetes method of control unspecified documented as of this encounter Visit Diagnoses Diagnosis Gestational diabetes mellitus (GDM), ant epartum, gestational diabetes method of control unspecified - Primary documented in this encounter Care Teams Civil Rights Representative Relationship Specialty Start Date End Date Heydi Santana PA-C PCP - General 11/14/10 [address] [place] [address] documented as of this encounter
--- OUTSIDE RECORDS SUMMARY | 2022-07-06 07:17 | XMS_ITS | Encounter Summary ---
:1990 Author Organization [employer] Address [address] [place] [address] Care Team Providers Name Role Phone Joel Anguiano MD Primary Care Provider Reason for Visit Reason Comments CONTROL COUNSELING Encounter Details Date Type Department Care Team Description 09/27/2010 [facility] Candy Perez control Practice AZURDO (Primary Dx) [address] [facility] [place], [place] [address] S [phone] [place] [address] Social History Tobacco Use Types Packs/Day Years Used Date Smoking Tobacco: Never Alcohol Use Standard Drinks/Week Comments No 0 (1 standard drink = 0.6 oz pure alcoho l) Sex Assigned at Date Recorded Not on file documented as of this encounter Last Filed Vital Signs Vital Sign Reading Time Taken Comments Blood Pressure 110/82 09/27/2010 9:16 AM METER READING CLERK Pulse 76 09/27/2010 9:16 AM METER READING CLERK Temperature - - Respiratory Rate - - Oxygen Saturation - - Inhaled Oxygen Concentration - - Weight 62.1 kg (137 lb) 09/27/2010 9:16 AM METER READING CLERK Height - - Body Mass Index - [...] change/worsen, or do not improve as expected. R READING CLERK documented in this encounter Progress Notes Candy [...] Apply topically. Twice daily ??? Triamcinolone Acetonide, [id number], (TRIAMCINOLONE ACETONIDE EX) cream use as needed [...] together. Candy Perez PA-C 10:39 AM 09/27/2010 R READING CLERK documented in this encounter Plan of Treatment Upcoming Encounters Date Type Specialty Care Team Description 07/14/2022 Telemedicine Diabetes Program Yahaira Arrieta, RD N, LD, [facility] [address] [facility] [address] [place] [phone] (Wo rk) documented as of this encounter Procedures Procedure Name Priority Date/Time Associated Diagnosis Comme nts TEST Waiting 09/27/2010 9:39 AM control Result s for this (URINE) METER READING CLERK procedure are i n the results section. documented in this encounter Results TEST (URINE) (09/27/2010 9:39 AM METER READING CLERK) Component Value Ref Test Analysis Performed At [facility] Range Method Time Signature HCG, Urine Negative [facility] Negative = <25 mIU/ml If is suspected, suggest repeat in 48-72 hours or confirm results with a quantitative hCG test. Specimen Anatomical Collection Method Collection Time Receive d Time (Source) Location / / Volume Laterality Urine specimen 09/27/2010 9:39 AM 010 9:49 (specimen) METER READING CLERK AM METER READING CLERK Candy Perez PA-C LAB_1 Performing Organization Address City/State/ZIP Code Phon e Number [facility] [phone] [facility] [address] [address] documented in this encounter Visit Diagnoses Diagnosis control - Primary Unspecified contraceptive management documented in this encounter Care Teams Sales And Service Technician Relationship Specialty Start Date End Date Joel Anguiano MD PCP - General 01/17/10 11/13/10 [address] [place], [place] [address] documented as of this encounter
--- OUTSIDE RECORDS SUMMARY | 2022-07-06 07:17 | XMS_ITS | Encounter Summary ---
:1990 Author Organization [employer] Address [address] [address] Care Team Providers Name Role Phone Max, Heydi Jaquelin RENNER Primary Care Provider [phone] Reason for Visit Reason Comments DIABETES,GESTATIONAL Encounter Details Date Type Department Care Team Description 06/30/2022 Telemedicine [facility] ADULT DIAB [facility] Yahaira Arrieta stational diabetes MEL Garcia RDN, PAVAN, DU mellitus (GDM), [address] [place] [address] antepartum, [place] [address] [address] gestational diabetes [phone] [place], [place] method of control [phone] unspecified (Primary [phone] (Wo rk) Dx) Social History Tobacco Use Types Packs/Day Years Used Date Smoking Tobacco: Never Alcohol Use Standard Drinks/Week Comments Not Currently 0 (1 standard drink = 0.6 oz pure alcoho l) Sex Assigned at Date Recorded Not on file documented as of this encounter Progress Notes Yahaira Arrieta RDN, PAVAN, DU - 06/30/2022 7:30 AM CDT Nutrition Diagnosis: Inconsistent carbohydrate intake related to incorrect application of nutrition recommendations as evidenced by conversation with patient. Lisa Lovelace RN - 06/30/2022 7:30 AM CDT Subjective: 1 Week GDM visit Lulu Mata attends her gestational diabetes education visit. Current Diabetes Medications: Insulin: None Metformin XR 500 mg taking with evening meals. No major food changes over past week. vitamin/supplements: yes Nausea/vomiting: No Food aversions/nutrition preferences: Don't like hamburger, and smell of fish Dining out: not really Patient feeling satisfied after each meals. Patient avoiding dairy denney ice cream. Physical activity and exercise:Patient states ride bike to work and back and forth 4 miles a day Objective: Gestational age: 33 wks 5 days (patient reported) There were no vitals taken for this visit. Wt Readings from Last 3 Encounters: 06/22/22 151 lb (68.5 kg) 03/12/12 144 lb (65.3 kg) 05/25/11 142 lb 3.2 oz (64.5 kg) Reviewed recent glucose results: Date Fasting 1 hour post-breakfast 1 hour post-lunch 1 hour post-evening meal 06/23 91 85 93 118 2hr 06/24 95 138 123 134 9/4 84 137 93 119 /5 94 98 89 113 ate pizza for dinner 06/27 100 104 135 128 /7 94 97 90 120 /8 93 137 95 135 /9 93 Assessment and Plan: Positive reinforcement for managing GDM. Patient BG in target ranges except couple of fasting blood sugar elevated because having pizza night before and not having bed time snack. Reviewed all visit 2 topics from the Gestation Diabetes BASICS curriculum except weight gain during . Glucose Monitoring plan: Patient will continue testing blood glucose levels four times per day as instructed Encouraged to check blood sugar 4 times a daily. Encouraged patient to call ( [facility]) if she sees any pattern of elevated of high blood sugars. Food Plan: Continue healthy eating for GDM. Patient will manage GDM with diet, and exercise, and Metformin XR 500 mg daily. Encouraged to eat 3 meals and snacks between meals and aiming to incorporate carbs to all her meals. Goals: Date: Category: Goals: Progression: 06/22/2022 Monitoring Diabetes Check glucose 4 times daily as instructed. Completed/On Track Follow up: 07/14 This visit was conducted as a: Video Visit Location of clinician: clinic Location of patient: home Time spent on video in [id number] contact with patient, if applicable: 20 mins Charted and educated by Lisa Lovelace RN Co-educated by Yahaira Arrieta RDN, [facility] Education content taught can be found in the diabetes education smartform documented in this encounter Plan of Treatment Upcoming Encounters Date Type Specialty Care Team Description 07/14/2022 Telemedicine Diabetes Program Yahaira Arrieta RD N, LD, [facility] [address] [facility] [phone] (Wo rk) documented as of this encounter Visit Diagnoses Diagnosis Gestational diabetes mellitus (GDM), ant epartum, gestational diabetes method of control unspecified - Primary documented in this encounter Care Teams Residence Life Director Relationship Specialty Start Date End Date Heydi Santana PA-C PCP - General 11/14/10 [address] [place] [address] documented as of this encounter
--- OUTSIDE RECORDS SUMMARY | 2022-07-06 07:17 | XMS_ITS | Encounter Summary ---
:1990 Author Organization [employer] Address [address] [place] [address] Care Team Providers Name Role Phone Unassigned, Provider Primary Care Provider Unavailable Reason for Visit Reason Comments ASTHMA Encounter Details Date Type Department Care Team Description 11/18/2009 Office Visit [facility] Miguelito Anguiano MD URI (Upper Medicine [address] Respiratory [address] Infection) (Primary [place], [place] [address] [place], [place] Dx) [phone] Social History Tobacco Use Types Packs/Day Years Used Date Smoking Tobacco: Never Alcohol Use Standard Drinks/Week Comments No 0 (1 standard drink = 0.6 oz pure alcoho l) Sex Assigned at Date Recorded Not on file documented as of this encounter Last Filed Vital Signs Vital Sign Reading Time Taken Comments Blood Pressure 120/70 11/18/2009 2:07 PM ZIPPER SEWING MACHINE OPERATOR Pulse 72 11/18/2009 2:07 PM ZIPPER SEWING MACHINE OPERATOR Temperature - - Respiratory Rate 18 11/18/2009 2:07 PM ZIPPER SEWING MACHINE OPERATOR Oxygen Saturation - - Inhaled Oxygen Concentration - - Weight 65.3 kg (144 lb) 11/18/2009 2:07 PM ZIPPER SEWING MACHINE OPERATOR Height - - Body Mass [...] to clinic p.r.n. Joel Anguiano MD 11/18/2009 ER SEWING MACHINE OPERATOR documented in this encounter Plan of Treatment Upcoming Encounters Date Type Specialty Care Team Description 07/14/2022 Telemedicine Diabetes Program Yahaira Arrieta, RD N, LD, [facility] [address] [facility] [place] [address] [address] (Wo rk) documented as of this encounter Visit Diagnoses Diagnosis URI (upper respiratory infection) - Prim prosper Acute upper respiratory infections of un specified site documented in this encounter Care Teams Pneumatic Systems Operator Relationship Specialty Start Date End Date Unassigned, Provider PCP - General 08/17/09 01/16/[address] [place] [address] documented as of this encounter
--- OUTSIDE RECORDS SUMMARY | 2022-07-06 07:17 | XMS_ITS | Encounter Summary ---
:1990 Author Organization [employer] Address [address], [place] [address] Care Team Providers Name Role Phone Heydi Santana PA-C Primary Care Provider [phone] Encounter Details Date Type Department Care Team Description 06/22/2022 Telemedicine [facility] [address] [facility] diabetes Endocrinology MD Reji mellitus (GDM), 3800 [facility] 3800 [facility] ant epartum, [address] Blvd gestational diabetes [facility] thod of control [phone] unspecified (Primary [phone] (Wo rk) Dx) Social History Tobacco Use [...] female seen in consultation, referred by OBGYN. [facility] in [place], [place]. Planning to deliver at [facility]. Currently at 32 weeks and 3 days [...] condition Both parents have hyperlipidemia. Works at [employer] Plans to work until close to due date. 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 Normal sensation in all 4 [...] Patient will meet with Diabetes Education and Pre Billing Clinician after this visit today for instructions as [...] Diabetes Program Yahaira Arrieta, RD N, LD, [facility] [address] [facility] [place] [address] (Wo rk) documented as of this encounter Visit Diagnoses Diagnosis Gestational diabetes mellitus (GDM), ant epartum, gestational diabetes method of control unspecified - Primary documented in this encounter Care Teams Quantitative Analyst Developer Relationship Specialty Start Date End Date Heydi Santana PA-C PCP - General 11/14/10 [address] [place] [address] documented as of this encounter
--- OUTSIDE RECORDS SUMMARY | 2022-07-06 07:17 | XMS_ITS | Encounter Summary ---
:1990 Author Organization [employer] Address [address] [place] [address] Care Team Providers Name Role Phone Max Heydi Jaquelin RENNER Primary Care Provider [phone] Reason for Visit Reason Comments Sore Throat Encounter Details Date Type Department Care Team Description 02/11/2011 Office Visit [facility] (Primary Dx) [address] [address] Social History Tobacco Use [...] culture obtained. ASSESSMENT: Pharyngitis. PLAN: Symptomatic care. [id number] Tylenol or ibuprofen 4 times a day [...] N, LD, [facility] [address] [facility] [place] [address] (Wo rk) documented as of this encounter [...] THROAT CULTURE ONLY (02/11/2011 3:33 PM CDT) [facility] gist Method Time Signature Grp A Culture Negative NEG [facility] Final Specimen Anatomical Collection Method Collection Time Receive d Time (Source) Location / / Volume Laterality 02/11/2011 3:33 PM 1 3:57 CDT PM CDT Belkis Sanchez APRN, BOXING AND PRESSING SUPERVISOR LAB_1 Performing Organization Address [facility] Phon e Number [employer] [phone] [facility] [address] [place] [address] STREP GRP A, RAPID SCREEN (02/11/2011 3:33 PM CDT) [facility] gist Method Time Signature Grp A Rapid Negative NEG [facility] Screen Specimen Anatomical Collection Method Collection Time Receive d Time (Source) Location / / Volume Laterality 02/11/2011 3:33 PM 1 3:57 CDT PM CDT Belkis Sanchez APRN, BOXING AND PRESSING SUPERVISOR LAB_1 Performing Organization Address [facility] Phon e Number [employer] [phone] [facility] [address] [place] [address] documented in this encounter Visit Diagnoses Diagnosis Sore throat - Primary Acute pharyngitis documented in this encounter Care Teams Ekg Technician Relationship Specialty Start Date End Date Heydi Santana PA-C PCP - General 11/14/10 [address] [place] [address] documented as of this encounter
--- OUTSIDE RECORDS SUMMARY | 2022-07-06 07:18 | XMS_ITS | Encounter Summary ---
:1990 Author Organization [facility] Address [address] [place] [address] Care Team Providers Name Role Phone Ben Arce M.D. Primary Care Provider Encounter Details Date Type Department Care Team Description 12/20/2021 Hospital Encounter Department of Cheikh Gautam Laboratory Medicine Minoo Garcia Supervis ion Of Other in [employer] Unspecified [address] [place] [address] Social History Tobacco Use Types Packs/Day Years [...] do you attend sabianist or Never 2021 christian services? Do you [...] at Date Recorded Female 12/02/2021 5:19 PM SOUP PERSON documented as of this encounter Medications at [...] Encounter For Resul ts for this AM SOUP PERSON Supervision Of Other procedu re are in Normal the results Unspecified section. Trimester URINALYSIS WITH Routine 12/20/2021 11:26 Encounter For Results for this MICROSCOPIC IF AM SOUP PERSON Supervision Of Other proce dure are in INDICATED, U Normal the results Unspecified section. Trimester BACTERIAL CULTURE, Routine 12/20/2021 11:26 Encounter For Resu lts for this AEROBIC + SUSC, AM SOUP PERSON Supervision Of Other proc edure are in URINE Normal the results Unspecified section. Trimester documented in this encounter Results Hemoglobin A1c (12/20/2021 11:34 AM SOUP PERSON) P athologist Signature Hemoglobin A1c, 5.2 4.2 - 5.6 12/20/2021 [place] B % 12:27 PM SOUP PERSON Specimen Anatomical Collection Method Collection Time Receive d Time (Source) Location / / Volume Laterality Blood (Blood, 12/20/2021 11:34 12/20/2021 Venous) AM SOUP PERSON 11:40 AM SOUP PERSON Cheikh Gautam M.D. LAB BLOOD ADD-ON Performing Organization Address City/State/ZIP Code Phon e Number [facility] [address] [place] [address] [place] [address] System in [place] [address] Bacterial Culture, Aerobic + Susc, Urine (12/20/2021 11:26 AM SOUP PERSON) Patholo gist Method Time Signature Urine Culture No growth 12/21/2021 MKTO after 1 day 8:40 AM SOUP PERSON of incubation. Specimen Anatomical Collection Method Collection Time Receive d Time (Source) Location / / Volume Laterality Urine (Urine, 12/20/2021 11:26 12/20/2021 2:19 Midstream) AM SOUP PERSON PM SOUP PERSON Comment: Specimen Source Site: Urine Cheikh Gautam M.D. LAB MICROBIOLOGY - GENERAL O RDERABLES Performing Organization Address City/State/ZIP Code Phon e Number [facility] [address] [place] [address] [place] [address] System in [place] [address] [place] [address] Urinalysis with Microscopic if Indicated (12/20/2021 11:26 AM SOUP PERSON) P athologist Signature Source Urine, 12/20/2021 [place] Urine, Clean 12:12 PM SOUP PERSON Catch Clarity Clear Clear 12/20/2021 [place] 12:12 PM SOUP PERSON Color Yellow 12/20/2021 [place] 12:12 PM SOUP PERSON Comment: ----REFERENCE VALUE---- Colorless Yellow Ronda Blood Negative Negative 12/20/2021 12:12 PM SOUP PERSON [place] Nitrite Negative Negative 12/20/2021 12:12 PM SOUP PERSON [place] Leukocyte Esterase Negative Negative 12/20/2021 12:[address] [place] Protein Negative mg/dL 12/20/2021 12:12 PM SOUP PERSON OWAT Comment: ----REFERENCE VALUE---- Negative Trace Glucose Negative Negative mg/dL 12/20/2021 12:12 PM SOUP PERSON O FRANSICO Ketone Negative Negative mg/dL 12/20/2021 12:12 PM SOUP PERSON O FRANS[place] Bilirubin Negative Negative 12/20/2021 12:12 PM SOUP PERSON OW[place] pH 6.0 5.0 - 8.0 12/20/2021 12:12 PM SOUP PERSON [place] Specific [place] 1.005 1.001 - 1.035 12/20/2021 12:12 PM SOUP PERSON OW[place] Urobilinogen 0.2 0.2 - 1.0 mg/dL 12/20/2021 12:[address] [place] Specimen Anatomical Collection Method Collection Time Receive d Time (Source) Location / / Volume Laterality Urine (Urine, 12/20/2021 11:26 12/20/2021 Clean Catch) AM SOUP PERSON 12:06 PM SOUP PERSON Cheikh Gautam M.D. LAB URINE ORDERABLES Performing Organization Address City/State/ZIP Code Phon e Number [facility]- [address] [place] [address] [place] [address] System in [place] [address] documented in this encounter Visit Diagnoses Diagnosis Encounter For Supervision Of Other Stella echols Unspecified Trimester (HCC) documented in this encounter Additional Health Concerns Assessment Noted Time PHQ-9 Depression Total Score: 4 12/20/2021 10:52 AM CS T documented as of this encounter Care Teams Media Services Director Relationship Specialty Start Date End Date Ben Arce M.D. PCP - General Family Medicine 01/13/[address] [place] [address] documented as of this encounter
--- OUTSIDE RECORDS SUMMARY | 2022-07-06 07:18 | XMS_ITS | Encounter Summary ---
:1990 Author Organization [facility] Address [address] [place] [address] Care Team Providers Name Role Phone Ben Arce M.D. Primary Care Provider Encounter Details Date Type Department Care Team Description 02/01/2022 Hospital Encounter Department of Terrence Swenson High Risk Laboratory Medicine [facility] in [address] [address] [place], [place] [phone] [address] (Work) [phone] Social History Tobacco Use Types Packs/Day Years [...] do you attend judaism or Never 2021 mandaeism services? 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 documented in this encounter Results [id number] Plus-Sent Out Lab (02/01/2022 9:52 AM CDT) [...] Organization Address City/State/ZIP Code Phon e Number [employer] [facility] [address] [place] [address] Narr8 [facility] [place] [address] [employer] [address] documented in this encounter Visit Diagnoses Diagnosis High Risk (HCC) documented in this encounter Additional Health Concerns Assessment Noted Time PHQ-9 Depression Total Score: 4 12/20/2021 10:52 AM CS T documented as of this encounter Care Teams Head Start Assistant Teacher Relationship Specialty Start Date End Date Ben Arce M.D. PCP - General Family Medicine 01/13/[address] [place] [address] documented as of this encounter
--- OUTSIDE RECORDS SUMMARY | 2022-07-06 07:18 | XMS_ITS | Encounter Summary ---
:1990 Author Organization [facility] Address [address] [place] [address] Care Team Providers Name Role Phone Ben Arce M.D. Primary Care Provider Reason for Visit Reason Comments Routine Visit 16 2/7 wk ob check pelvic/lo wer back pain 7/10 pain scale, needs referral to chiropract or Outpatient (Routine) - Authorized Specialty Diagnoses / Procedures Referred By Contact Refer red To Contact Obstetrics and Cheikh Gautam [facility] william Gynecology M.DMaribell Referral ID Status Reason Start Date Expiration Date Visits V isits Requested Authorized [id number] Authorized 12/20/2021 12/20/2022 15 15 Encounter Details Date Type Department Care Team Description 03/01/2022 Routine Department of Terrence Swenson Pregnan cy Examination Test With Positive Result (HCC) (Primary Dx); Obstetrics and M.D. Encounter For Supervision Of Normal Preg roberta Unspecified Trimester (HCC) Gynecology in [address] [place], [place] [phone] [place], [place] [phone] (Work) [phone] Social History Tobacco Use Types Packs/Day Years [...] do you attend religion or Never 2021 mu-ism services? Do you belong to any clubs or No 11/20/2021 organizations such as religion groups, unions, fraSeafarer Adventurers or athletic groups, or school groups? How [...] at Date Recorded Female 12/02/2021 5:19 PM ARTIST COLOR SEPARATION documented as of this encounter Last Filed [...] and Family: Twice a week ??? Attends Orthodoxy Services: Never ??? Active Member of Clubs [...] documented as of this encounter Care Teams Equipment Operator Intermodal Yard Relationship Specialty Start Date End Date Ben Arce M.D. PCP - General Family Medicine 01/13/[address] [place] [phone] documented as of this encounter
--- OUTSIDE RECORDS SUMMARY | 2022-07-06 07:18 | XMS_ITS | Encounter Summary ---
:1990 Author Organization [facility] Address [address] [place] [address] Care Team Providers Name Role Phone Ben Arce M.D. Primary Care Provider Encounter Details Date Type Department Care Team Description 12/20/2021 Hospital Encounter Department of Cheikh Gautam Laboratory Medicine Minoo Garcia Supervis ion Of Other in [facility] Unspecified [address] [place] [address] Social History Tobacco Use Types Packs/Day Years [...] do you attend restorationist or Never 2021 mosque services? Do you [...] Date Recorded Female 12/02/2021 5:19 PM SYSTEMS DEVELOPMENT MANAGER documented as of this encounter Medications [...] Encounter For Results for this , S SYSTEMS DEVELOPMENT MANAGER Supervision Of Other procedu re are in Normal the results Unspecified section. Trimester HIV-1/-2 AG AND AB Routine 12/20/2021 11:34 AM Encounter For R esults for this SCRN, SYSTEMS DEVELOPMENT MANAGER Supervision Of Other proce dure are in PLASMA Normal the results Unspecified section. Trimester SYPHILIS TOTAL AB Routine 12/20/2021 11:34 AM Encounter For Re sults for this W/ REFLEX S SYSTEMS DEVELOPMENT MANAGER Supervision Of Other procedu re are in Normal the results Unspecified section. Trimester HBS ANTIGEN Routine 12/20/2021 11:34 AM Encounter For Results for this , S SYSTEMS DEVELOPMENT MANAGER Supervision Of Other procedu re are in Normal the results Unspecified section. Trimester ABORH, RBC Routine 12/20/2021 11:34 AM Encounter For Results for this SYSTEMS DEVELOPMENT MANAGER Supervision Of Other procedu re are in Normal the results Unspecified section. Trimester RUBELLA ANTIBODIES, Routine 12/20/2021 11:34 AM Encounter For Results for this IGG SYSTEMS DEVELOPMENT MANAGER Supervision Of Other procedu re are in Normal the results Unspecified section. Trimester CBC WITHOUT Routine 12/20/2021 11:34 AM Encounter For Results for this DIFFERENTIAL, B SYSTEMS DEVELOPMENT MANAGER Supervision Of Other proc edure are in Normal the results Unspecified section. Trimester ANTIBODY SCREEN, B Routine 12/20/2021 11:34 AM Encounter For R esults for this SYSTEMS DEVELOPMENT MANAGER Supervision Of Other procedu re are in Normal the results Unspecified section. Trimester documented in this encounter Results Hepatitis C Virus Antibody Screen (12/20/2021 11:34 AM SYSTEMS DEVELOPMENT MANAGER) P athologist Signature HCV Ab Scrn Negative Negative 12/21/2021 [facility] , S 8:10 AM SYSTEMS DEVELOPMENT MANAGER Comment: Jctmab-gg-jfmqrz ratio is <1.00 . Specimen Anatomical Collection Method Collection Time Receive d Time (Source) Location / / Volume Laterality Blood (Blood, 12/20/2021 11:34 12/21/2021 6:40 Venous) AM SYSTEMS DEVELOPMENT MANAGER AM SYSTEMS DEVELOPMENT MANAGER Cheikh Gautam M.D. LAB MICROBIOLOGY - BLOOD ORD ERABLES Performing Organization Address City/[facility]/ZIP Code Phon e Number [facility] [address] [place] [address] [place] [address] [place] [address] Laboratory Medicine and Pathology [address] S[place]OV[place] Syphilis Total Ab w/ Reflex, Serum (12/20/2021 11:34 AM SYSTEMS DEVELOPMENT MANAGER) Patholo gist Method Time Signature Syphilis Nonreactive Nonreactive 12/21/2021 [facility] Total Ab w/ 11:40 AM SYSTEMS DEVELOPMENT MANAGER Reflex Comment: No serologic evidence of infection with T. pallidum (syphilis). ??Repeat testing may be cons idered in patients with suspected acute or primary syphilis in 2-4 weeks. For additional information on interpreta tion of the syphilis reverse algorithm and resul ts, see: [email or web address] it-[email or web address]_Serology_Algorithm.p df Specimen Anatomical Collection Method Collection Time Receive d Time (Source) Location / / Volume Laterality Blood (Blood, 12/20/2021 11:34 12/20/2021 6:27 Venous) AM SYSTEMS DEVELOPMENT MANAGER PM SYSTEMS DEVELOPMENT MANAGER Cheikh Gautam M.D. LAB BLOOD ADD-ON Performing Organization Address City/[facility] Phon e Number [address] [place] [address] System in [address] Rubella Antibodies, IgG (12/20/2021 11:34 AM SYSTEMS DEVELOPMENT MANAGER) P athologist Signature Rubella Ab, Positive 12/21/2021 [facility] IgG, S 11:40 AM SYSTEMS DEVELOPMENT MANAGER Comment: Results suggest response to immunization or prior exposure to the virus. ----REFERENCE VALUE---- Vaccinated: Positive (>=1.0 AI) Unvaccinated: Negative (<=0.7 AI) Rubella IgG Antibody Index 2.6 12/21/2021 11 :40 AM SYSTEMS DEVELOPMENT MANAGER [facility] Specimen Anatomical Collection Method Collection Time Receive d Time (Source) Location / / Volume Laterality Blood (Blood, 12/20/2021 11:34 12/20/2021 6:27 Venous) AM SYSTEMS DEVELOPMENT MANAGER PM SYSTEMS DEVELOPMENT MANAGER Cheikh Gautam M.D. LAB MICROBIOLOGY - BLOOD ORD ERABLES Performing Organization Address City/State/ZIP Code Phon e Number [facility]- [address] [place] [phone] [place] [address] System in [address] HIV-1/-2 Ag and Ab Scrn, Plasma (12/20/2021 11:34 AM SYSTEMS DEVELOPMENT MANAGER) P athologist Signature HIV Ag/Ab Negative Negative 12/21/2021 [facility] Scrn, 11:40 AM SYSTEMS DEVELOPMENT MANAGER P Comment: Negative result does not rule out HIV in fection. If exposure to HIV infection occurred <14 d ays ago, contact the laboratory to request additi on of HIV-1 RNA detection / quantification test. HIV-1 p24 Ag Scrn, P Negative Negative 12/21/2021 11:40 AM SYSTEMS DEVELOPMENT MANAGER [facility] Comment: Negative result does not rule out HIV in fection. If exposure to HIV infection occurred <14 d ays ago, contact the laboratory to request additi on of HIV-1 RNA detection / quantification test. HIV-1 Ab Scrn, P Negative Negative 12/21/2021 11: 40 AM SYSTEMS DEVELOPMENT MANAGER [facility] Comment: Negative result does not rule out HIV in fection. If exposure to HIV infection occurred <14 d ays ago, contact the laboratory to request additi on of HIV-1 RNA detection / quantification test. HIV-2 Ab Scrn, P Negative Negative 12/21/2021 11: 40 AM SYSTEMS DEVELOPMENT MANAGER [facility] Comment: Negative result does not rule out HIV in fection. If exposure to HIV infection occurred <14 d ays ago, contact the laboratory to request additi on of HIV-1 RNA detection / quantification test. Specimen Anatomical Collection Method Collection Time Receive d Time (Source) Location / / Volume Laterality Blood (Blood, 12/20/2021 11:34 12/20/2021 6:27 Venous) AM SYSTEMS DEVELOPMENT MANAGER PM SYSTEMS DEVELOPMENT MANAGER Cheikh Gautam M.D. LAB MICROBIOLOGY - BLOOD ORD ERABLES Performing Organization Address City/State/ZIP Code Phon e Number [facility]- [address] [place] [phone] [place] [address] System in [address] HBs Antigen , Serum (12/20/2021 11:34 AM SYSTEMS DEVELOPMENT MANAGER) [facility] Method Time Signature HBs Antigen Non reactive Non reactive 12/20/2021 [facility] , S 4:50 PM SYSTEMS DEVELOPMENT MANAGER Specimen Anatomical Collection Method Collection Time Receive d Time (Source) Location / / Volume Laterality Blood (Blood, 12/20/2021 11:34 12/20/2021 3:49 Venous) AM SYSTEMS DEVELOPMENT MANAGER PM SYSTEMS DEVELOPMENT MANAGER Cheikh Gautam M.D. LAB MICROBIOLOGY - BLOOD ORD ERABLES Performing Organization Address City/State/ZIP Code Phon e Number [facility]- [address] [place] [address] [facility] [place] [address] [facility] [address] (ABNORMAL) CBC without Differential (12/20/2021 11:34 AM SYSTEMS DEVELOPMENT MANAGER) [facility] Method Time Signature Hemoglobin 14.1 11.6 - 12/20/2021 [facility] 15.0 g/dL 11:44 AM SYSTEMS DEVELOPMENT MANAGER Hematocrit 41.0 35.5 - 12/20/2021 [facility] 44.9 % 11:44 AM SYSTEMS DEVELOPMENT MANAGER Erythrocytes 4.91 3.92 - 12/20/2021 [facility] 5.13 11:44 AM SYSTEMS DEVELOPMENT MANAGER x10(12)/L MCV 83.5 78.2 - 12/20/2021 [facility] 97.9 fL 11:44 AM SYSTEMS DEVELOPMENT MANAGER RBC Distrib Width 11.7 (L) 12.2 - 12/20/2021 [facility] 16.1 % 11:44 AM SYSTEMS DEVELOPMENT MANAGER Platelet Count 360 157 - 371 12/20/2021 [facility] x10(9)/L 11:44 AM SYSTEMS DEVELOPMENT MANAGER Leukocytes 11.1 (H) 3.4 - 9.6 12/20/2021 [facility] x10(9)/L 11:44 AM SYSTEMS DEVELOPMENT MANAGER Specimen Anatomical Collection Method Collection Time Receive d Time (Source) Location / / Volume Laterality Blood (Blood, 12/20/2021 11:34 12/20/2021 Venous) AM SYSTEMS DEVELOPMENT MANAGER 11:40 AM SYSTEMS DEVELOPMENT MANAGER Cheikh M Dain M.D. LAB BLOOD ADD-ON Performing Organization Address City/[facility]/ZIP Code Phon e Number [facility]- [address] [place] [address] [facility] [place] [address] System in [place] [address] Antibody Screen, RBC (with reflex Antibody ID) (12/20/2021 11:34 AM SYSTEMS DEVELOPMENT MANAGER) P athologist Signature Antibody Screen NEG 12/20/2021 [facility] 5:16 PM SYSTEMS DEVELOPMENT MANAGER Specimen Anatomical Collection Method Collection Time Receive d Time (Source) Location / / Volume Laterality Blood (Blood, 12/20/2021 11:34 12/20/2021 3:49 Venous) AM SYSTEMS DEVELOPMENT MANAGER PM SYSTEMS DEVELOPMENT MANAGER Cheikh Gautam M.D. LAB BLOOD BANK TEST ORDERABL ES Performing Organization Address City/[facility]/ZIP [facility] [place] e Number [facility]- [address] [place] [address] [facility] [place] [phone] [place] [address] [address] [facility] ABORh, RBC (12/20/2021 11:34 AM SYSTEMS DEVELOPMENT MANAGER) P athologist Signature ABO Group O 12/20/2021 5:16 [place] PM SYSTEMS DEVELOPMENT MANAGER Rh Type POS 12/20/2021 5:16 [facility] PM SYSTEMS DEVELOPMENT MANAGER Specimen Anatomical Collection Method Collection Time Receive d Time (Source) Location / / Volume Laterality Blood (Blood, 12/20/2021 11:34 12/20/2021 3:51 Venous) AM SYSTEMS DEVELOPMENT MANAGER PM SYSTEMS DEVELOPMENT MANAGER Cheikh Gautam M.D. LAB BLOOD BANK TEST ORDERABL ES Performing Organization Address City/[facility]/ZIP [facility] Phon e Number [facility]- [address] [place] [address] [facility] [place], [place] [address] [place] [address] [address] [facility] documented in this encounter Visit Diagnoses Diagnosis Encounter For Supervision Of Other Stella l Unspecified Trimester (HCC) documented in this encounter Additional Health Concerns Assessment Noted Time PHQ-9 Depression Total Score: 4 12/20/2021 10:52 AM CS T documented as of this encounter Care Teams Implementation Coordinator Relationship Specialty Start Date End Date Ben Arce M.D. PCP - General Family Medicine 01/13/[address] [place] [phone] documented as of this encounter
--- OUTSIDE RECORDS SUMMARY | 2022-07-06 07:18 | XMS_ITS | Encounter Summary ---
:1990 Author Organization [facility] Address [address] [place] [address] Care Team Providers Name Role Phone Ben Arce M.D. Primary Care Provider Reason for Visit Reason Comments Hand Injury Medical Information Encounter Details Date Type Department Care Team Description 02/11/2022 Nurse Triage Department of [facility] Rylie Hightower Hand Injury; Medical Medicine in [place], [place] [address] [facility] [address] [place] [address] [phone] Social History Tobacco Use Types Packs/Day Years [...] do you attend islam or Never 2021 yazidi services? Do you [...] Date Recorded Female 12/02/2021 5:19 PM VIDEO OPERATOR documented as of this encounter Miscellaneous [...] or deformed) Protocols used: HAND AND WRIST [id number] documented in this encounter Plan of Treatment Not on filedocumented as of this encounter Visit Diagnoses Not on filedocumented in this encounter Additional Health Concerns Assessment Noted Time PHQ-9 Depression Total Score: 4 12/20/2021 10:52 AM CS T documented as of this encounter Care Teams Manager Hematology Relationship Specialty Start Date End Date Ben Arce M.D. PCP - General Family Medicine 01/13/[address] [place] [phone] documented as of this encounter
--- OUTSIDE RECORDS SUMMARY | 2022-07-06 07:18 | XMS_ITS | Encounter Summary ---
:1990 Author Organization [facility] Address [address] [place] [address] Care Team Providers Name Role Phone Ben Arce M.D. Primary Care Provider Reason for Visit Reason Comments Hand Injury Encounter Details Date Type Department Care Team Description 02/11/2022 Emergency [facility] Sigrid Forbes ontusion Hand Initial Department DMinoo Right (Primary Dx) [address] [place] [address] [phone] (Wo rk) Social History Tobacco Use Types [...] do you attend islam or Never 2021 sabianist services? Do you [...] at Date Recorded Female 12/02/2021 5:19 PM INFECTIOUS DISEASES PHYSICIAN documented as of this encounter Last [...] clinic by calling the appointment center at [phone]. Thank you for choosing [facility] for your care. It was a pleasure taking care of you today in our Emergency Department. AttachmentsThe following attachments cannot be sent through Care Everywhere.Hand Contusion [id number]-[id number] (Albanian)documented in this encounter Medications at Time of [...] Forbes M.D. - 02/11/2022 9:44 PM CDT [facility] EMERGENCY DEPARTMENT ENCOUNTER Patient Name: Lulu Mata PCP: Ben Arce M.D. SUBJECTIVE CHIEF COMPLAINT/REASON FOR VISIT Hand Injury HISTORY OF PRESENT ILLNESS Lulu Mata is a 31 y.o. female presenting with right hand pain. She was at the [facility] today when her hand was shut [...] as of this encounter Care Teams Business Initiatives Manager Relationship Specialty Start Date End Date Ben Arce M.D. PCP - General Family Medicine 01/13/[address] [place] [phone] documented as of this encounter
--- OUTSIDE RECORDS SUMMARY | 2022-07-06 07:18 | XMS_ITS | Encounter Summary ---
:1990 Author Organization [facility] Address [address] [place] [address] Care Team Providers Name Role Phone Ben Arce M.D. Primary Care Provider Reason for Visit Reason Comments Routine Visit Patient seen in L&D yesterda y for decreased movement and spotting Outpatient (Routine) - Authorized Specialty Diagnoses / Procedures Referred By Contact Refer red To Contact Obstetrics and Cheikh Gautam [facility] Gynecology M.DMaribell Referral ID Status Reason Start Date Expiration Date Visits V isits Requested Authorized [id number] Authorized 12/20/2021 12/20/2022 15 15 Encounter Details Date Type Department Care Team Description 04/18/2022 Routine Department of Rylie Mcdowell, 23 Weeks Gestation Obstetrics and M.D. ([facility]) Gynecology in [address] (Primary Dx) [place] [address] [address] [facility] [address] [place], [place] [phone] (Work) [phone] Social History Tobacco Use Types Packs/Day Years [...] do you attend cheondoism or Never 2021 rastafari services? Do you [...] Date Recorded Female 12/02/2021 5:19 PM CHIEF LIBRARIAN CIRCULATION DEPARTMENT documented as of this encounter Last [...] documented as of this encounter Care Teams Family And Consumer Education Teacher Relationship Specialty Start Date End Date Ben Arce M.D. PCP - General Family Medicine 01/13/[address] [facility] [address] documented as of this encounter
--- OUTSIDE RECORDS SUMMARY | 2022-07-06 07:18 | XMS_ITS | Encounter Summary ---
:1990 Author Organization [facility] Address [address] [place] [address] Care Team Providers Name Role Phone Ben Arce M.D. Primary Care Provider Reason for Visit Reason Comments Nausea Vomiting During Auth/Cert Specialty Diagnoses / Procedures Referred By Contact Refer red To Contact Diagnoses . Procedures . Referral ID Status Reason Start Date Expiration Date Visits Requ ested Visits Authorized [id number] 1 1 Encounter Details Date Type Department Care Team Description 04/28/2022 Hospital Encounter [facility] Rylie Mcdowell Encounte r [facility] [place] Supervision Of [facility], [place] [address] [facility] Normal Floor [place], [place] Unspecified [address] [place] [address] Trimester (HCC) [place], [place] [phone] (Work) [phone] Social History Tobacco Use Types Packs/Day Years [...] do you attend adventist or Never 2021 latter day services? Do [...] at Date Recorded Female 12/02/2021 5:19 PM BUSINESS OFFICE ASSISTANT documented as of this encounter Last [...] 8.0 04/28/2022 11:36 AM CDT [facility] Specific [place] 1.015 1.001 - 1.035 04/28/2022 11:36 AM [...] Organization Address City/State/ZIP Code Phon e Number [place] [address] [address] [place], [place] [address] [facility] [place] [address] Influenza A/B, SARS CoV-2, PCR, Rapid, Varies (04/28/2022 8:48 AM CDT) [facility] Method Time Signature Influenza A, Negative Negative 04/28/2022 [facility] PCR, Rapid, V 9:26 AM CDT Influenza B, Negative Negative 04/28/2022 [facility] PCR, Rapid, V 9:26 AM CDT SARS CoV-2, Undetected Undetected 04/28/2022 [facility] PCR, Rapid, V 9:26 AM CDT Comment: ----ADDITIONAL INFORMATION---- This RT-PCR test was performed using the Carissa SARS-CoV-2 and Influenza A/B Reagent assay from [employer], which has received Emergency Use Authori zation(EUA) by the U.S. Food and Drug Administration . Fact sheets for this Emergency Use Autho rization (EUA) assay can be found at the following link s: For Healthcare Providers: https://www.fda.gov/media/635610/downloa d For Patients: https://www.fda.gov/media/488105/downloa d Infl A/B, SARS CoV-2, PCR, Source Swab, Nasopharynx 04/28/2022 9:02 AM CDT [facility] Specimen Anatomical Collection Method Collection Time Receive d Time (Source) Location / / Volume Laterality Varies 04/28/2022 8:48 AM 9:02 CDT AM CDT Rylie Mcdowell M.D. LAB MICROBIOLOGY - GENERAL O RDERABLES Performing Organization Address City/State/ZIP Code Phon e Number [address] [place] [place] [address] documented in this encounter Visit Diagnoses [...] documented as of this encounter Care Teams Lozenge Maker Helper Relationship Specialty Start Date End Date Ben Arce M.D. PCP - General Family Medicine 01/13/[address] [place] [phone] documented as of this encounter
--- OUTSIDE RECORDS SUMMARY | 2022-07-06 07:18 | XMS_ITS | Encounter Summary ---
:1990 Author Organization [facility] Address [address] [place] [address] Care Team Providers Name Role Phone Ben Arce M.D. Primary Care Provider Reason for Referral Outpatient (Routine) - Authorized Specialty Diagnoses / Procedures Referred By Contact Refer red To Contact Diagnoses Pain Back Pain Neck Ben Arce M.D. External, Referring [address] [place] [address] Referral ID Status Reason Start Expiration Visits Visits Date Date Requested Authorized [id number] Authorized Patient 03/01/2022 03/01/2023 1 1 Preference Reason for Visit Reason Comments Outside Order Insurance Referral Encounter Details Date Type Department Care Team Description 03/01/2022 Clinical Communication Department of Ben Arce, [facility] Order Family Medicine in [place] (Insurance Referral) [place] [address] [place] [address] [facility] [phone] [phone] Social History Tobacco Use Types Packs/Day Years [...] do you attend shinto or Never 2021 scientologist services? Do you belong to any clubs or No 11/20/2021 organizations such as shinto groups, unions, fraPerpetual Technologies or athletic groups, or school groups? [...] at Date Recorded Female 12/02/2021 5:19 PM ZONING ENGINEER documented as of this encounter Miscellaneous Notes Telephone Encounter - Jossie Ramos - 03/06/2022 8:41 AM CDT [facility] referral faxed 03/02/22 with office visit notes. Also faxed [facility] restricted forms for OB care [facility]. Thank you, Jossie Referrals 03/02/22 Lore called from [facility] [phone]. This referral has been processed. 03/03/22sla. Telephone Encounter - Ben Arce M.D. - 03/01/2022 3:07 PM CDT Order signed. Telephone Encounter - Jossie Ramos - 03/01/2022 2:[address] Arce, ORDER/LAB/REFERRAL REQUEST: Name of test/referral/order requested: [facility] Dr. Med D[place]on i [id number] Reason for request: Back and neck pain Date needed: 02/26/22 Order pended to this encounter, once signed we can submit the Restricted [facility] referral for insurance. Thank you, Jossie Referrals 03/01/22 documented in this encounter Plan of Treatment Not on filedocumented as of this encounter Visit Diagnoses Diagnosis Pain Back - Primary Pain Neck documented in this encounter Additional Health Concerns Assessment Noted Time PHQ-9 Depression Total Score: 4 12/20/2021 10:52 AM CS T documented as of this encounter Care Teams Construction Administrative Assistant Relationship Specialty Start Date End Date Ben Arce M.D. PCP - General Family Medicine 01/13/[address] [place] [address] documented as of this encounter
--- OUTSIDE RECORDS SUMMARY | 2022-07-06 07:18 | XMS_ITS | Encounter Summary ---
:1990 Author Organization [facility] Address [address] [place] [address] Care Team Providers Name Role Phone Ben Arce M.D. Primary Care Provider Reason for Referral Outpatient (Routine) - Authorized Specialty Diagnoses / Procedures Referred By Contact Refer red To Contact Obstetrics and Cheikh Gautam [facility] Gynecology Minoo Referral ID Status Reason Start Date Expiration Date Visits V isits Requested Authorized [id number] Authorized 12/20/2021 12/20/2022 15 15 Scheduling Instructions Every 4 weeks until 28 week gestation. Then every 2 weeks until 36 week gestati on. Then every 1 week until 40+ week gestati on. METRIST/PRACTICE OWNER Reason for Visit Reason Comments Initial Visit 7w 3d Outpatient (Routine) - Closed Specialty Diagnoses / Procedures Referred By Contact Refer red To Contact Obstetrics and Diagnoses Examination Test With Positive Result (HCC) Terrence Swenson M.D. [facility] [address] [place] [address] Referral ID Status Reason Start Date Expiration Date Visits Requ ested Visits Authorized [id number] Closed 12/01/2021 12/01/2022 1 1 Encounter Details Date Type Department Care Team Description 12/20/2021 Initial Department of Obstetrics Col Dain in [place], [place]: 6w1d and Gynecology in [place], [place] [address] [place] [address] Social History Tobacco Use Types Packs/Day [...] do you attend anglican or Never 2021 yazdanism services? Do you [...] at Date Recorded Female 12/02/2021 5:19 PM OPTOMETRIST/PRACTICE OWNER documented as of this encounter Last Filed Vital Signs Vital Sign Reading Time Taken Comments Blood Pressure 136/80 12/20/2021 10:52 AM OPTOMETRIST/PRACTICE OWNER Pulse - - Temperature - - Respiratory Rate - - Oxygen Saturation - - Inhaled Oxygen Concentration - - Weight 69.2 kg (152 lb 8.9 oz) 12/20/2021 10:52 AM OPTOMETRIST/PRACTICE OWNER Height - - Body Mass Index 28.8 12/09/2021 8:31 AM OPTOMETRIST/PRACTICE OWNER documented in this encounter Progress Notes Cheikh [...] and Family: Twice a week ??? Attends Scientologist Services: Never ??? Active Member of Clubs [...] Vaccinations: COVID complete but needs booster/Flu declines County Assessor: Pap NIL w/ neg HPV 11/2021 Aneuploidy screening/Carrier Screening: declines Preeclampsia prevention: aspirin to start at 12 weeks FAS: 28 week labs: TDAP /Rhogam GBS Growth Ultrasounds: surveillance: Presentation (36 weeks): Del planning: PPBC: Problems: 1. Hx preeclampsia: aspirin to start at 12 weeks. Need to get baseline preE labs 2. Hx GDM: Early A1C ordered METRIST/PRACTICE OWNER documented in this encounter Plan of Treatment [...] Diagnoses Obstetrics and Outpatient Referral Routine 15 [facility] Gynecology office starting 0 12/20/2021 visit [...] US PROCEDURES Hemoglobin A1c (12/20/2021 11:34 AM OPTOMETRIST/PRACTICE OWNER) P athologist Signature Hemoglobin A1c, 5.2 4.2 - 5.6 12/20/2021 OWAT B % 12:27 PM OPTOMETRIST/PRACTICE OWNER Specimen Anatomical Collection Method Collection Time Receive d Time (Source) Location / / Volume Laterality Blood (Blood, 12/20/2021 11:34 12/20/2021 Venous) AM OPTOMETRIST/PRACTICE OWNER 11:40 AM OPTOMETRIST/PRACTICE OWNER Cheikh Gautam M.D. LAB BLOOD ADD-ON Performing Organization Address City/State/ZIP Code Phon e Number [facility]- [address] [place] [address] [facility] [place] [address] System in [place] [address] documented in this [...] documented as of this encounter Care Teams Cementer Relationship Specialty Start Date End Date Ben Arce M.D. PCP - General Family Medicine 01/13/[address] [place] [address] documented as of this encounter
--- OUTSIDE RECORDS SUMMARY | 2022-07-06 07:18 | XMS_ITS | Encounter Summary ---
:1990 Author Organization [facility] Address [address] [place] [address] Care Team Providers Name Role Phone Ben [...] Expiration Date Visits Requ ested Visits Authorized [id number] 1 1 Encounter Details Date Type Department Care Team Description 04/17/2022 Hospital Encounter [facility] Rylie Mcdowell, 23 Weeks Gestation [facility]Jaswinder M.D. ([facility]) [facility] [place] [address] [address] [place], [place] [phone] [address] (Work) [phone] Social History Tobacco Use Types Packs/Day Years [...] you attend roman catholic or Never 2021 sikh services? Do you [...] at Date Recorded Female 12/02/2021 5:19 PM PERSONALIZED LIVING MANAGER NURSE documented as of this encounter Last [...] Category I tracing. No UTC's traced via [place]. RN palpated during one episode ofuterine cramping, [...] documented as of this encounter Care Teams Ice Cream Freezer Assistant Relationship Specialty Start Date End Date Ben Arce M.D. PCP - General Family Medicine 01/13/[address] [place] [address] documented as of this encounter
--- OUTSIDE RECORDS SUMMARY | 2022-07-06 07:18 | XMS_ITS | Encounter Summary ---
:1990 Author Organization [facility] Address [address] [place] [address] Care Team Providers Name Role Phone Ben Arce M.D. Primary Care Provider Reason for Visit Reason Comments Routine Visit 12+2weeks Sinusitis Concerns Outpatient (Routine) - Authorized Specialty Diagnoses / Procedures Referred By Contact Refer red To Contact Obstetrics and Cheikh Gautam [facility] william Gynecology MGonzalez Referral ID Status Reason Start Date Expiration Date Visits V isits Requested Authorized [id number] Authorized 12/20/2021 12/20/2022 15 15 Encounter Details Date Type Department Care Team Description 02/01/2022 Routine Department of Terrence Swenson [facility] Obstetrics and MGonzalez (Primary Dx) Gynecology in [address] [address] [place], [place] [phone] [address] (Work) [phone] Social History Tobacco Use Types Packs/Day Years [...] do you attend congregation or Never 2021 yazdanism services? Do you [...] at Date Recorded Female 12/02/2021 5:19 PM SHELL MOLD BONDING MACHINE OPERATOR documented as of this encounter [...] Body Mass Index 29.09 12/09/2021 8:31 AM SHELL MOLD BONDING MACHINE OPERATOR documented in this encounter Progress [...] ASSESSMENT / PLAN #1 High Risk - [id number] Plus-Sent Out Lab; Future; Expected date: 02/01/2022 [...] has been sent to her pharmacy in [place]. Most of the early symptoms of including [...] on filedocumented as of this encounter Results [id number] Plus-Sent Out Lab (02/01/2022 9:52 AM CDT) [...] Organization Address City/State/ZIP Code Phon e Number [facility] [address] [place] [address] [employer] [place] [address] [employer] [address] documented in this encounter Visit Diagnoses Diagnosis High Risk (HCC) - Primary documented in this encounter Additional Health Concerns Assessment Noted Time PHQ-9 Depression Total Score: 4 12/20/2021 10:52 AM CS T documented as of this encounter Care Teams Obstetrics Scrub Nurse Relationship Specialty Start Date End Date Ben Arce M.D. PCP - General Family Medicine 01/13/[address] [place] [phone] documented as of this encounter
--- OUTSIDE RECORDS SUMMARY | 2022-07-06 07:18 | XMS_ITS | Encounter Summary ---
:1990 Author Organization [facility] Address [address] [place] [address] Care Team Providers Name Role Phone Ben Arce M.D. Primary Care Provider Reason for Visit Reason Comments Vomiting During Auth/Cert Specialty Diagnoses / Procedures Referred By Contact Refer red To Contact Diagnoses Procedures Referral ID Status Reason Start Date Expiration Date Visits Requ ested Visits Authorized [id number] 1 1 Encounter Details Date Type Department Care Team Description 06/12/2022 [facility], [address] [facility] Second [place], [place] [address] [place] [address] [place], [place] [phone] (Wo rk) [address] [phone] Social History Tobacco Use Types Packs/Day Years [...] do you attend nondenominational or Never 2021 hindu services? Do you [...] Date Recorded Female 12/02/2021 5:19 PM ELECTRONIC SCALE TESTER documented as of this encounter Last [...] appointment on Sunday with her PCP in [place]. Education provided on staying hydrated and how [...] Address City/State/ZIP Code Phon e Number [facility]- [address] [place], [place] [address] [facility] [place] [address] [facility] [address] documented in this encounter Visit Diagnoses Not on filedocumented in this encounter Additional Health Concerns Assessment Noted Time PHQ-9 Depression Total Score: 4 12/20/2021 10:52 AM CS T documented as of this encounter Care Teams Experimental Mechanic Spacecraft Relationship Specialty Start Date End Date Ben Arce M.D. PCP - General Family Medicine 01/13/[address] [place] [phone] documented as of this encounter
--- OUTSIDE RECORDS SUMMARY | 2022-07-06 07:18 | XMS_ITS | Encounter Summary ---
:1990 Author Organization [facility] Address [address] [place] [address] Care Team Providers Name Role Phone Ben Arce M.D. Primary Care Provider Encounter Details Date Type Department Care Team Description 03/31/2022 Hospital Encounter Department of Cheikh Gautam Laboratory Medicine Minoo Garcia ([facility]) in [place], [place] [address] [place] [phone] Social History Tobacco Use Types Packs/Day Years [...] do you attend buddhism or Never 2021 pentecostal services? Do you [...] at Date Recorded Female 12/02/2021 5:19 PM LIFE ASSURANCE REPRESENTATIVE documented as of this encounter Medications at [...] for this RATIO, RANDOM, URINE PM CDT ([facility]) proc edure are in the results [...] M.D. LAB URINE ORDERABLES Performing Organization Address City/[facility]/ZIP Code Phon e Number [place] [address] [place], [place] [address] [facility] [place] [address] ALT (Alanine Aminotransferase) (03/31/2022 5:31 [...] M.D. LAB BLOOD ADD-ON Performing Organization Address City/[facility]/ZIP Code Phon e Number [place] [address] [place], [place] [address] [facility] [place] [address] AST (Aspartate Aminotransferase) (03/31/2022 5:31 [...] M.D. LAB BLOOD ADD-ON Performing Organization Address City/[facility]/ZIP Code Phon e Number [address] [address] [facility] [place] [address] (ABNORMAL) Creatinine with Estimated GFR (03/31/2022 5:31 PM CDT) Analysis Performed At Patho logist Time Signature Creatinine 0.58 (L) 0.59 - 03/31/2022 NPRG 1.04 mg/dL 5:59 PM CDT eGFR-Black/Afri >90 >=60 03/31/2022 NPRG can Swedish mL/min/BSA 5:59 PM CDT Comment: ----ADDITIONAL INFORMATION---- [...] e Number [facility]- [address] [place], [place] [address] [place] [address] [place] [address] [facility] [address] [place] documented in this encounter Visit Diagnoses Diagnosis High Risk (HCC) documented in this encounter Additional Health Concerns Assessment Noted Time PHQ-9 Depression Total Score: 4 12/20/2021 10:52 AM CS T documented as of this encounter Care Teams Drum Sander Offbearer Relationship Specialty Start Date End Date Ben Arce M.D. PCP - General Family Medicine 01/13/[address] [place] [phone] documented as of this encounter
--- OUTSIDE RECORDS SUMMARY | 2022-07-06 07:18 | XMS_ITS | Encounter Summary ---
:1990 Author Organization [facility] Address [address] [place] [address] Care Team Providers Name Role Phone Ben Arce M.D. Primary Care Provider Encounter Details Date Type Department Care Team Description 03/27/2022 Ancillary Procedure Department of Cheikh Gautam For Obstetrics and Minoo Garcia Supervision O f Other Gynecology in Normal [place], [place] Unspecified [address] Trimester (HCC) [place] [address] Social History Tobacco Use Types [...] do you attend yazdanism or Never 2021 hoahaoism services? Do you [...] at Date Recorded Female 12/02/2021 5:19 PM UNDERCUTTER documented as of this encounter Plan of [...] documented as of this encounter Care Teams Circulation Tender Relationship Specialty Start Date End Date Ben Arce M.D. PCP - General Family Medicine 01/13/21 [address] [facility] [place] [address] documented as of this encounter
--- OUTSIDE RECORDS SUMMARY | 2022-07-06 07:18 | XMS_ITS | Encounter Summary ---
:1990 Author Organization [facility] Address [address] [facility] [place] [address] Care Team Providers Name Role Phone Heydi Santana PA-C Primary Care Provider [phone] Encounter Details Date Type Department Care Team Description 09/22/2003 PN Conversion Only [place] [facility] Ayaan Osorio [facility] [address] [facility] [address] [facility]. [facility] [address] [place] [address] [phone] Social History Tobacco Use Types Packs/Day Years Used Date Smoking Tobacco: Never Assessed Sex Assigned at Date Recorded Not on file documented as of this encounter Progress Notes Maryana Osorio - 09/22/2003 12:01 AM CST Progress Notes signed by Maryana Osorio MD at 09/23/03 0756 Author: Maryana Osorio MD Service: (none) Author Type: Physician Filed: 02/09/11 1721 Note Time: 09/22/03 0001 Status: Signed Job Order Clerk: Maryana Osorio MD (Physician) NAME: DILLAN MATA MR: [id number] ACCT: [id number] VISIT: [id number] DICTATING CLINICIAN: MARYANA OSORIO MD JOB: [id number] CLINIC PROGRESS NOTE DATE OF VISIT: 09/22/2003 [...] needed and follow up p.r.n. TT: CT: [id number] C: 09/23/03 05:53 DOCUMENT: [id number] Patito Craig - 02/19/2002 12:01 AM CDT Progress Notes signed by Patito Jorge APRN, AEROTRIANGULATION SPECIALIST at 03/11/02 1009 Author: HÉCTOR Martin Service: (none) Author Type: Nurse Practitioner Filed: 02/09/11 0554 Note Time: 02/19/02 0001 Status: Signed Job Order Clerk: HÉCTOR Martin (Nurse Practitioner) IMPRESSION: URI. SUBJECTIVE: [...] symptomatic treatment. Follow up p.r.n. TT: CT: [id number] C: DOCUMENT: [id number] Maryana Osorio - 12/23/1998 12:01 AM CST Progress Notes signed by Maryana Osorio MD at 01/04/99 1608 Author: Maryana Osorio MD Service: (none) Author Type: Physician Filed: 02/08/11 0924 Note Time: 12/23/98 0001 Status: Signed Job Order Clerk: Maryana Osorio MD (Physician) IMPRESSION: Upper respiratory [...] put on Trimox 250 chewables t.i.d. stg SFER KNITTER Maryana Osorio - 12/10/1997 12:01 AM CST Progress Notes signed by Maryana Osorio MD at 12/17/972053 Author: Maryana Osorio MD Service: (none) Author Type: Physician Filed: 02/08/116 Note Time: 12/10/97 0001 Status: Signed Job Order Clerk: Maryana Osorio MD (Physician) IMPRESSION: Serous otitis [...] days and will followup here pemi carey SFER KNITTER Theodore Garcia MD - 03/02/1997 12:01 AM CDT Progress Notes signed by Theodore Garcia MD at 03/18/97 9516 Author: Theodore Garcia MD Service: (none) Author Type: Physician Filed: 02/07/11 9382 Note Time: 03/02/97 0001 Status: Signed Job Order Clerk: Theodore Garcia MD (Physician) IMPRESSION: Right otitis [...] Discussed side effects. Recheck in two weeks. [facility] documented in this encounter Plan of Treatment Upcoming Encounters Date Type Specialty Care Team Description 07/14/2022 Telemedicine Diabetes Program Yahaira Arrieta, RD N, LD, CDCES [address] [facility] [place] [address] (Wo rk) documented as of this encounter Procedures Procedure Name Priority Date/Time Associated Diagnosis Comme nts XR FOOT RT 3+ VIEWS Routine 09/22/2003 3:12 PM Re sults for this TRANSFER KNITTER procedure are i n the results section. STREP GROUP A Routine 02/19/2002 4:43 PM Results for this ANTIGEN TEST CDT procedure are i n the results section. BETA STREP FOLLOWUP Routine 02/19/2002 4:43 PM Re sults for this CDT procedure are i n the results section. documented in this encounter Results XR Foot Rt 3+ Views (09/22/2003 3:12 PM TRANSFER KNITTER) Anatomical Region Laterality Modality Lower Extremity, Foot Other Specimen (Source) Anatomical Location Collection Method / Collectio n Time Received Time / Laterality Volume Narrative 09/22/2003 3:12 PM TRANSFER KNITTER Findings: BN1 No radiographic evidence of bone or join t abnormality. Dictating MINDI CHERRY RADIOLOGIST Procedure Note Brenda Machado - 12/28/2016 Findings: BN1 No radiographic evidence of bone or join t abnormality. Dictating MINDI CHERRY RADIOLOGIST Maryana HINOJOSA GD Strep Group A Antigen Test (02/19/2002 4:43 PM CDT) Analysis Performed At [facility] Time Signature Strep Group A Negative Negative HP CONVERSION Antigen Test Comment: Culture to follow. Specimen (Source) Anatomical Collection Method Collection Time Re ceived Time Location / / Volume Laterality 02/19/2002 4:43 PM CDT Patito Jorge APRN, AEROTRIANGULATION SPECIALIST LAB_1 Performing Organization Address City/State/ZIP Code Phon e Number HP CONVERSION Beta Strep Followup (02/19/2002 4:43 PM CDT) P athologist Signature Strep Screen SEE TEXT HP CONVERSION Comment: Patient: DILLAN MATA BRAD Rapid Strep Follow up Culture @ ? Collected: ?1642 Source: Throat ?Processed: ?1643 ? 14 Final Report ------ ?[id number] ??0735 No beta hemolytic Strep group A isolated . @ = Rapid F/U Cult Performed at ??[address], [place], [place] ?[address] Specimen (Source) Anatomical Collection Method Collection Time Re ceived Time Location / / Volume Laterality 02/19/2002 4:43 PM CDT Patito Jorge APRN, AEROTRIANGULATION SPECIALIST LAB_1 Performing Organization Address City/State/ZIP Code Phon e Number HP CONVERSION documented in this encounter Visit Diagnoses Not on filedocumented in this encounter Care Teams Food Order Expediter Relationship Specialty Start Date End Date Heydi Santana PA-C PCP - General 11/14/10 [address] [place] [address] documented as of this encounter
--- OUTSIDE RECORDS SUMMARY | 2022-07-06 07:18 | XMS_ITS | Encounter Summary ---
:1990 Author Organization [facility] Address [address] [place] [address] Care Team Providers Name Role Phone Ben Arce M.D. Primary Care Provider Reason for Visit Reason Comments Routine Visit 20weeks Outpatient (Routine) - Authorized Specialty Diagnoses / Procedures Referred By Contact Refer red To Contact Obstetrics and Cheikh Gautam [facility] william Gynecology Minoo Referral ID Status Reason Start Date Expiration Date Visits V isits Requested Authorized [id number] Authorized 12/20/2021 12/20/2022 15 15 Encounter Details Date Type Department Care Team Description 03/27/2022 Routine Department of Cheikh Gautam k (HCC) (Primary Dx); Obstetrics and Minoo Garcia Encounter For Supervision Of Normal Unspecified Trimester (HCC) Gynecology in [place], [place] [address] [place] [address] Social History Tobacco Use Types Packs/Day Years [...] do you attend congregation or Never 2021 jainism services? Do you [...] GUM WORKER documented as of this encounter Last [...] -Gonorhrea/chlamydia urine today -Patient is transferring to [place] because it is closer -Problem list updated [...] Vaccinations: COVID complete but needs booster/Flu declines Industrial Sewer: Pap NIL w/ neg HPV 11/2021 Aneuploidy [...] she told me she is transferring to [place] because it is closer. documented in this encounter Plan of Treatment Not on filedocumented as of this encounter Procedures Procedure Name Priority Date/Time Associated Diagnosis Comme nts CHLAMYDIA/GONORRHOE Routine 03/27/2022 10:42 AM High Risk Preg roberta Results for this AE AMPLIFIED RNA CDT ([facility]) procedure a re in the [...] M.D. LAB URINE ORDERABLES Performing Organization Address City/[facility]/ZIP Code Phon e Number [place] [address] [place], [place] [address] [place] [facility] [place] [phone] ALT (Alanine Aminotransferase) (03/31/2022 5:31 PM CDT) Patholo gist Method Time Signature Alanine 10 7 - 45 03/31/2022 NPRG Aminotransferase U/L 5:59 PM CDT (ALT), P Specimen Anatomical Collection Method Collection Time Receive d Time (Source) Location / / Volume Laterality Blood (Blood, 03/31/2022 5:31 PM 03/31/20 5:34 Venous) CDT PM CDT Cheikh Gautam M.D. LAB BLOOD ADD-ON Performing Organization Address City/[facility] Phon e Number [address] [address] [place] [facility] [place] [phone] [address] AST (Aspartate Aminotransferase) (03/31/2022 5:31 PM CDT) [facility] gist Method Time Signature Aspartate 13 8 - 43 03/31/2022 NPR[facility] Aminotransferase U/L 5:59 PM CDT (AST), P Specimen Anatomical Collection Method Collection Time Receive d Time (Source) Location / / Volume Laterality Blood (Blood, 03/31/2022 5:31 PM 03/31/20 22 5:34 Venous) CDT PM CDT Cheikh Gautam M.D. LAB BLOOD ADD-ON Performing Organization Address City/[facility]/ZIP Code Phon e Number [place] [address] [address] [place], [place] [address] [place] [facility] [place] [phone] (ABNORMAL) Creatinine with Estimated GFR (03/31/2022 5:31 PM CDT) Analysis Performed At [facility] logist Time Signature Creatinine 0.58 (L) [...] M.D. LAB BLOOD ADD-ON Performing Organization Address City/[facility] Phon e Number [facility]- [address] [place] [address] [place] [address] [place] [address] Chlamydia / Gonorrhoeae Amplified RNA (03/27/2022 10:42 AM CDT) [facility] gist Method Time Signature Source Urine, 03/27/2022 [...] - GENERAL O RDERABLES Performing Organization Address City/[facility]/ZIP Code Phon e Number [facility]- [address] [place] [address] [place] [address] System in [place] [address] [facility] documented in this encounter Visit Diagnoses Diagnosis High Risk (HCC) - Primary Encounter For Supervision Of Normal Preg roberta Unspecified Trimester (HCC) documented in this encounter Additional Health Concerns Assessment Noted Time PHQ-9 Depression Total Score: 4 12/20/2021 10:52 AM CS T documented as of this encounter Care Teams Clinical Lab Assistant Relationship Specialty Start Date End Date Ben Arce M.D. PCP - General Family Medicine 01/13/[address] [place] [address] documented as of this encounter
--- OUTSIDE RECORDS SUMMARY | 2022-07-06 07:18 | XMS_ITS | Clinical Summary ---
:1990 Author Organization [facility] Address [address] [place] [address] Care Team Providers Name Role Phone Ben Arce M.D. Primary Care Provider Source Comments Patient records contain information from all sites at [facility]. For routine questions regarding patient records, call [phone] during business hours, M-F 8:00 AM - 5:00 PM Central Time. Record requests for emergency care only can be directed to [phone] at any time.[facility] Allergies Active Allergy Reactions Severity Noted Date Comments Pelion Pollen Itching, Wheezing 04/17/2022 Medications Medication Sig [...] COVID complete but needs b ooster/Flu declines Field Radio Operator: Pap NIL w/ neg HPV 11/2021 [...] told me she is transferr ing to [place] because it is closer. History Of Falling [...] Of Normal Unspe cified Trimester ([facility]) 04/18/2022 Routine Obstetrics and Rylie Mcdowell, 23 Weeks Gestation Gynecology MMaribellDMaribell ([facility]) (Primary Dx) 04/17/2022 Hospital Encounter [...] do you attend orthodoxy or Never 2021 adventist services? Do you [...] Date Recorded Female 12/02/2021 5:19 PM INDUSTRIAL PROPERTY APPRAISER Last Filed Vital Signs Vital Sign Reading [...] this topic Medical Devices Implanted Type Area Diesel Mechanic Construction Device Shelf Model / Identifier Expiration Serial [...] 06/12/2022 AM CDT 10:57 AM CDT Generic [facility] LAB POCT ORDERABLES-MANUAL Performing Organization Address City/State/ZIP Code Phon e Number [facility]- [address] [place], [place] [address] [place] [address] [place] [address] (ABNORMAL) Urinalysis [...] 8.0 04/28/2022 11:36 AM CDT NPRG Specific [place] 1.015 1.001 - 1.035 04/28/2022 11:36 AM [...] Address City/State/ZIP Code Phon e Number [facility]- [address] [place], [place] [address] [address] [place] [place] [address] [place] [address] [address] [facility] Influenza A/B, SARS CoV-2, PCR, Rapid, Varies [...] SARS-CoV-2 and Influenza A/B Reagent assay from [employer], which has received Emergency Use Authori zation(EUA) by the U.S. Food and Drug Administration . Fact sheets for this Emergency Use Autho rization (EUA) assay can be found at the following link s: For Healthcare Providers: https://www.fda.gov/media/494577/downloa d For Patients: https://www.fda.gov/media/403388/downloa d Infl A/B, SARS CoV-2, PCR, Source Swab, Nasopharynx 04/28/2022 9:02 AM CDT NPRG Specimen Anatomical Collection Method Collection Time Receive d Time (Source) Location / / Volume Laterality Varies 04/28/2022 8:48 AM 9:02 CDT AM CDT Rylie Mcdowell M.D. LAB MICROBIOLOGY - GENERAL O RDERABLES Performing Organization Address City/State/ZIP Code Phon e Number [facility]- [address] [place] [address] [address] [place] [facility] NPRG [facility] [place] [address] from Last 3 Months Insurance Payer Benefit Plan / Subscriber ID Effective Phone Address T ype Group Dates EMPLOYERS EMPLOYERS [id number] 2019-Pres [phone] n[address] INSURANCE INSURANCE ent [phone] [place] [address] UCARE UCARE [id number] 2022-Pres [phone] [address] HMO ent [address] [place] [address] Lulu Mata Workers Comp Self [address] (Home) [place] [address] Lulu Mata Third Alliance Party Self [address] (Home) [place] [address] Care Teams Engine Pilot Relationship Specialty Start Date End Date Ben Arce M.D. PCP - General Family Medicine 01/13/[address] [place] [phone]
--- OUTSIDE RECORDS SUMMARY | 2022-07-06 07:18 | XMS_ITS | Clinical Summary ---
:1990 Author Organization [facility] [place] [address] Care Team Providers Name Role Phone Genny Lazo MD Primary Care Provider [phone] Allergies No known active allergies Medications [...] Father Premature CHD (under age 60) Father [place] Allergies Mother Hypertension Mother Allergies Sister 4 [...] uts 05m/ lb 9.2 oz) Delivery Location: [facility] Comments: Induced preeclampsia Current OB Episode Summary Episode Dates Estimated Date of Pregravid Weight TWG (As of ) Delivery 04/04/2022 - Present Unknown (07/06/2022) Last Filed Vital Signs Vital Sign Reading [...] Height 152.4 cm (5') 09/23/2015 2:13 PM TECHNICAL MARKETING ENGINEER Body Mass Index 31.05 09/23/2015 2:13 PM TECHNICAL MARKETING ENGINEER Plan of Treatment Upcoming Encounters Date Type [...] TASHI AKINS MA 2012-Present [address] [place] [address] [address] [facility] (Home) [place], [place] [phone] (Work) Lulu Mata Personal/Family Self 1990 [address] [facility] (Home) [place], [place] [phone] (Work) Advance Directives Latest Code Status on File Code Status Date Activated Date Inactivated Comments Full Code 12/05/2012 6:17 AM 12/07/2012 9:39 PM Full Code 12/05/2012 1:03 AM 12/05/2012 6:17 AM Full Code 12/03/2012 4:10 PM 12/05/2012 1:03 AM Full Code 11/30/2012 9:24 PM 12/01/2012 3:09 AM Full Code 11/30/2012 9:03 PM 11/30/2012 9:24 PM Care Teams Estimate Clerk Relationship Specialty Start Date End Date Genny Lazo MD PCP - General Family Practice 07/02/12 [address] [facility] [address] [facility] [place] [address]
--- OUTSIDE RECORDS SUMMARY | 2022-07-06 07:18 | XMS_ITS | Encounter Summary ---
:[address] [facility] Address [address] [place] [address] Care Team Providers Name Role Phone Ben Arce M.D. Primary Care Provider Encounter Details Date Type Department Care Team Description 12/20/2021 Orders Only Department of Obstetrics and Gau Terrence zamarripa M.D. Gynecology in [address] [address] [place] [address] [phone] Social History Tobacco Use Types Packs/Day Years [...] do you attend shinto or Never 2021 gnosticist services? Do you [...] Date Recorded Female 12/02/2021 5:19 PM CLINICAL PSYCHIATRIST documented as of this encounter Plan of Treatment Not on filedocumented as of this encounter Visit Diagnoses Not on filedocumented in this encounter Additional Health Concerns Assessment Noted Time PHQ-9 Depression Total Score: 4 12/20/2021 10:52 AM CS T documented as of this encounter Care Teams Sealing Machine Operator Relationship Specialty Start Date End Date Ben Arce M.D. PCP - General Family Medicine 01/13/[address] [place] [phone] documented as of this encounter
--- OUTSIDE RECORDS SUMMARY | 2022-07-06 07:18 | XMS_ITS | Encounter Summary ---
:1990 Author Organization [facility] Address [address] [place] [address] Care Team Providers Name Role Phone Ben Arce M.D. Primary Care Provider Encounter Details Date Type Department Care Team Description 02/28/2022 Orders Only Department of Obstetrics and Gau Terrence zamarripa M.D. Gynecology in [address] [address] [place] [address] [phone] Social History Tobacco Use Types Packs/Day Years [...] do you attend baptism or Never 2021 roman catholic services? Do [...] at Date Recorded Female 12/02/2021 5:19 PM CHEMIST PROTEINS documented as of this encounter Plan of Treatment Not on filedocumented as of this encounter Visit Diagnoses Not on filedocumented in this encounter Additional Health Concerns Assessment Noted Time PHQ-9 Depression Total Score: 4 12/20/2021 10:52 AM CS T documented as of this encounter Care Teams Power Saw Operator Relationship Specialty Start Date End Date Ben Arce M.D. PCP - General Family Medicine 01/13/[address] [place] [phone] documented as of this encounter
--- OUTSIDE RECORDS SUMMARY | 2022-07-06 07:19 | XMS_ITS | Encounter Summary ---
:1990 Author Organization [facility] Address [address] [place] [address] Care Team Providers Name Role Phone Ben Arce M.D. Primary Care Provider Encounter Details Date Type Department Care Team Description 11/24/2021 Orders Only Department of Robert, Erika Hammer, Abnormal L aboratory Obstetrics and TUBE OPERATOR, C.N.P., Results (Samina pendleton Dx) Gynecology in [place], [place] [address] [place] [phone] Social History Tobacco Use Types Packs/Day Years [...] do you attend congregation or Never 2021 synagogue services? Do you [...] Date Recorded Female 12/02/2021 5:19 PM ASSISTANT PRINCIPAL documented as of this encounter Plan of Treatment Not on filedocumented as of this encounter Results (ABNORMAL) hCG (Human Chorionic Gonadotropin), Quantitative, (11/28/2021 4:00 PM ASSISTANT PRINCIPAL) P athologist Signature HCG, 94 (H) <5 IU/L 11/28/2021 NPRG Quantitative, 7:47 PM ASSISTANT PRINCIPAL , P Comment: Biotin has been identified by the meir toro as a potential interfering substance. ??Higher concentr ations of biotin may be found in multivitamins, hair/nail supple ments, and workout supplements. ??If the result does not ma [facility] clinical observations, repeat testing after patient refrains fr om the use of supplements for at least 12 hours. Specimen Anatomical Collection Method Collection Time Receive d Time (Source) Location / / Volume Laterality Blood (Blood, 11/28/2021 4:00 PM 11/28/19 22 6:56 Venous) ASSISTANT PRINCIPAL PM ASSISTANT PRINCIPAL Erika Jones APRN, C.N.P., M.S.N. LAB BLOOD ADD-ON Performing Organization Address City/State/ZIP Code Phon e Number [facility]- [address] [place], [place] [address] [place] [address] [place] [address] [facility] [address] [place] documented in this encounter Visit Diagnoses Diagnosis Abnormal Laboratory Results - Primary documented in this encounter Care Teams Field Service Manager Relationship Specialty Start Date End Date Ben Arce M.D. PCP - General Family Medicine 01/13/[address] [place] [phone] documented as of this encounter
--- OUTSIDE RECORDS SUMMARY | 2022-07-06 07:19 | XMS_ITS | Encounter Summary ---
:1990 Author Organization [facility] Address [address] [place] [address] Care Team Providers Name Role Phone Ben Arce M.D. Primary Care Provider Encounter Details Date Type Department Care Team Description 11/28/2021 Hospital Encounter Department of Erika Jones Laboratory Laboratory Medicine CJ HammerN, Results in [place], C.N.PMaribell, M.S.N. [place] [address] [place] [address] [phone] Social History Tobacco Use Types Packs/Day Years [...] do you attend congregation or Never 2021 amish services? Do you [...] at Date Recorded Female 12/02/2021 5:19 PM PULLER THROUGH documented as of this encounter Medications at [...] Abnormal Laboratory Results for this GONADOTROPIN (HCG), PULLER THROUGH Results procedur e are in ROBERTA, the results section. documented in this encounter Results (ABNORMAL) hCG (Human Chorionic Gonadotropin), Quantitative, (11/28/2021 4:00 PM PULLER THROUGH) P athologist Signature HCG, 94 (H) <5 IU/L 11/28/2021 NPRG Quantitative, 7:47 PM PULLER THROUGH , P Comment: Biotin has been identified [...] (Blood, 11/28/2021 4:00 PM 11/28/19 6:56 Venous) PULLER THROUGH PM PULLER THROUGH Erika Jones APRN, C.N.P., M.S.N. LAB BLOOD ADD-ON Performing Organization Address City/State/ZIP Code Phon e Number [facility]- [address] [place], [place] [address] [address] [place] [address] [place] [address] [address] [facility] documented in this encounter Visit Diagnoses Diagnosis Abnormal Laboratory Results documented in this encounter Care Teams Marketing Technology Coordinator Relationship Specialty Start Date End Date Ben Arce M.D. PCP - General Family Medicine 01/13/[address] [place] [phone] documented as of this encounter
--- OUTSIDE RECORDS SUMMARY | 2022-07-06 07:19 | XMS_ITS | Encounter Summary ---
:1990 Author Organization [facility] Address [address] [place] [address] Care Team Providers Name Role Phone Ben Arce M.D. Primary Care Provider Reason for Referral Outpatient (Routine) - Closed Specialty Diagnoses / Procedures Referred By Contact Refer red To Contact Obstetrics and Diagnoses Examination Test With Positive Result (HCC) Terrence Swenson M.D. [facility] Gynecology [address] [address] Referral ID Status Reason Start Date Expiration Date Visits Requ ested Visits Authorized [id number] Closed 12/01/2021 12/01/2022 1 1 [facility] Specialty Diagnoses / Procedures Referred By Contact Refer red To Contact Terrence Swenson M.D. [facility] Region [address] [place] [phone] Referral ID Status Reason Start Date Expiration Date Visits Requ ested Visits Authorized [facility] Encounter Details Date Type Department Care Team Description 12/01/2021 Clinical Communication Department of Terrence Swenson Obstetrics and Mino[place] Gynecology in [address] [place], [place] [address] [place] [address] [place], [place] [phone] (Work) [phone] Social History Tobacco Use Types Packs/Day Years [...] do you attend baptist or Never 2021 orthodoxy services? Do you [...] Date Recorded Female 12/02/2021 5:19 PM MANAGER CRITICAL CARE documented as of this encounter Miscellaneous Notes [...] following references were used: Nursing Clinical Judgement GER [facility]ITICAL [facility] Telephone Encounter - Anisa White - 12/01/2021 12:26 PM CST Reason for Communication: Patient calling, had a positive home test and a clinic confirmedtest. LMP unknown. Patient is looking to transfer care from [place] Current Can Nursing/Provider leave a detailed message?: yes Did the patient refuse triage through Nurse line? (for symptom based concerns): Action Needed: Name of Medication (if relevant): Please send all scheduling replies to scheduling pool. GER [facility]ITICAL CARE documented in this encounter Plan of Treatment [...] US OB First Trimester (12/20/2021 10:50 AM MANAGER CRITICAL CARE) Anatomical Region Laterality Modality Body, Ultrasound OB RST LOS, Ultrasound ARZ LOS N/A Ultrasound Specimen (Source) Anatomical Collection Method Collection Time Re ceived Time Location / / Volume Laterality 12/20/2021 12:31 PM MANAGER CRITICAL CARE Impressions 12/20/2021 12:34 PM MANAGER CRITICAL CARE Single, viable, intrauterine gestation w ith CARLOS of August 14, 2022 (not consistent with menstrual dating). Narrative 12/20/2021 12:34 PM MANAGER CRITICAL CARE EXAM: US OB FIRST TRIMESTER COMPARISON: None Physician: Dr. Swenson FINDINGS: Gestational age and CARLOS by LMP or OB/EHR assignment: 7 w 3 d, CARLOS: 08/05/2022 INTRAUTERINE Pole: Normal, [place]-Rump Length: 0 .50 cm Gestational Sac: Normal [...] 3 d, CARLOS: 08/05/2022 INTRAUTERINE Pole: Normal, [place]-Rump Length: 0 .50 cm Gestational Sac: Normal [...] (HCC) documented in this encounter Care Teams Lime Kiln Worker Helper Relationship Specialty Start Date End Date Ben Arce M.D. PCP - General Family Medicine 01/13/[address] [place], [place] [address] documented as of this encounter
--- OUTSIDE RECORDS SUMMARY | 2022-07-06 07:19 | XMS_ITS | Encounter Summary ---
:1990 Author Organization [facility] Address [address] [place] [address] Care Team Providers Name Role Phone Ben Arce M.D. Primary Care Provider Reason for Visit Reason Comments Communication New script Encounter Details Date Type Department Care Team Description 10/06/2021 Clinical Communication Department of Ben Arce Comm unication (New Family Medicine in M.DMaribell script) [place] [address] [facility] [address] [facility] [address] [phone] Social History Tobacco Use Types Packs/Day Years [...] do you attend scientologist or Never 2021 catholic services? Do you [...] at Date Recorded Female 12/02/2021 5:19 PM REPAIRER documented as of this encounter Miscellaneous Notes Telephone Encounter - Babita Ramachandran R.N. - 10/06/2021 3:58 PM REPAIRER Portal message sent to patient that if she is on restricted plan she needs to contact her insurance for an exception. IRER Telephone Encounter - Alana Perkins L.P.N. - 10/06/2021 3:02 PM REPAIRER Spoke to pt and informed her that we would need to know which medication for eye drops was ordered so that Dr Arce could send it in. Pt states she has no idea what it is. Informed pt to find out which medication it is and call us back with that info. IRER Telephone Encounter - Migdalia Pompa - 10/06/2021 [...] Please call patient with plan. Thank you. IRER documented in this encounter Plan of Treatment Not on filedocumented as of this encounter Visit Diagnoses Not on filedocumented in this encounter Care Teams Handy Worker Relationship Specialty Start Date End Date Ben Arce M.D. PCP - General Family Medicine 01/13/[address] [place] [phone] documented as of this encounter
--- OUTSIDE RECORDS SUMMARY | 2022-07-06 07:19 | XMS_ITS | Encounter Summary ---
:1990 Author Organization [facility] Address [address] [place] [address] Care Team Providers Name Role Phone Ben Arce M.D. Primary Care Provider Encounter Details Date Type Department Care Team Description 01/21/2021 Orders Only [facility] PCP TH Teja Zuniga Jr., M.D. [address] [place] [address] [place] [phone] (Wo rk) Social History Tobacco [...] do you attend muslim or Never 2021 mandaen services? Do you [...] Date Recorded Female 12/02/2021 5:19 PM HEALTH DIAGNOSTICS TEACHER documented as of this encounter Plan of Treatment Not on filedocumented as of this encounter Visit Diagnoses Not on filedocumented in this encounter Care Teams Box Estimator Relationship Specialty Start Date End Date Ben Arce M.D. PCP - General Family Medicine 01/13/[address] [place] [address] documented as of this encounter
--- OUTSIDE RECORDS SUMMARY | 2022-07-06 07:19 | XMS_ITS | Encounter Summary ---
:1990 Author Organization [facility] Address [address] [place] [address] Care Team Providers Name Role Phone Ben Arce M.D. Primary Care Provider Reason for Visit Reason Comments Med Refill Encounter Details Date Type Department Care Team Description 05/23/2021 Refill Department of Family Medicine Ben Maynard M.D. Med Refill in [facility] [address] [place] [phone] (Wo rk) Social History Tobacco Use Types [...] do you attend latter-day or Never 2021 roman catholic services? Do [...] Date Recorded Female 12/02/2021 5:19 PM TREE PULLER documented as of this encounter Miscellaneous Notes Telephone Encounter - Rylie Le RMaribellMKaplesh - 05/23/2021 1:08 PM CDT Medication Name: cetirizine Last Office Visit: 05/18/21 Future Office Visit: none Last Blood Pressure: (04236) 05/18/21 Last Set of Labs: 01/13/21 Patient is restricted to Dr. Ritter for all refills documented in this encounter Plan of Treatment Not on filedocumented as of this encounter Visit Diagnoses Diagnosis Rhinitis Allergic documented in this encounter Care Teams Therapeutic Strategy Lead Relationship Specialty Start Date End Date Ben Arce M.D. PCP - General Family Medicine 01/13/[address] [place] [address] documented as of this encounter
--- OUTSIDE RECORDS SUMMARY | 2022-07-06 07:19 | XMS_ITS | Encounter Summary ---
:1990 Author Organization [facility] Address [address] [place] [address] Care Team Providers Name Role Phone Elsewhere, Pcp Primary Care Provider Unavailable Encounter Details Date Type Department Care Team Description 01/07/2021 Clinical Communication Department of [facility] Donya Lind [facility] in [facility], C.N.P.[place], [place] D.N.P. [address] [place] [phone] Social History Tobacco Use Types Packs/Day Years [...] do you attend baptist or Never 2021 temple services? Do you [...] Date Recorded Female 12/02/2021 5:19 PM AUTO SEAT COVER INSTALLER documented as of this encounter Miscellaneous Notes [...] patient Please call [place] before patient arrives... [phone] documented in this encounter Plan of Treatment Not on filedocumented as of this encounter Visit Diagnoses Not on filedocumented in this encounter Care Teams Snuff Box Finisher Relationship Specialty Start Date End Date Elsewhere, Pcp PCP - General Family Medicine 01/08/18 01/12/21 documented as of this encounter
--- OUTSIDE RECORDS SUMMARY | 2022-07-06 07:19 | XMS_ITS | Encounter Summary ---
:1990 Author Organization [facility] Address [address] [place] [address] Care Team Providers Name Role Phone Elsewhere, Pcp Primary Care Provider Unavailable Reason for Visit Reason Comments Earache Encounter Details Date Type Department Care Team Description 01/02/2021 Nurse Triage Department of [facility] Angella Herbert, Ear ache Medicine in [place], M.S.N., R.N. [place] [address] [place] [address] Social History Tobacco Use Types Packs/Day [...] do you attend amish or Never 2021 congregational services? Do you [...] at Date Recorded Female 12/02/2021 5:19 PM MINK RANCHER documented as of this encounter Miscellaneous Notes [...] medication (e.g., ibuprofen or acetaminophen) Protocols used: [id number] Care Advice Patient/Caregiver understands and will follow care advice?: Yes, able to teach back SEE PCP WITHIN 4 HOURS (OR PCP TRIAGE): * IF OFFICE WILL BE OPEN: You need to be seen within the next 3 or 4 hours. Call your doctor (or TRACK SWEEPER/PA) now or as soon as the office [...] need to be seen. Your doctor (or TRACK SWEEPER/PA) will want to talk with you to [...] on filedocumented in this encounter Care Teams Pharmacy Operations Manager Relationship Specialty Start Date End Date Elsewhere, Pcp PCP - General Family Medicine 01/08/18 01/12/21 documented as of this encounter
--- OUTSIDE RECORDS SUMMARY | 2022-07-06 07:19 | XMS_ITS | Encounter Summary ---
:1990 Author Organization [facility] Address [address] [place] [address] Care Team Providers Name Role Phone Ben Arce M.D. Primary Care Provider Reason for Visit Reason Comments Other right hand injury---yesterda y Encounter Details Date Type Department Care Team Description 05/18/2021 Office Visit Department of Alexander Estrella Pain Hand Right (Primary Dx); Medicine in [facility] Contusion Hand Initial Right [place], [place] [address] [place] [phone] Social History Tobacco Use Types Packs/Day Years [...] do you attend hindu or Never 2021 confucianist services? Do you [...] at Date Recorded Female 12/02/2021 5:19 PM TOXICOLOGY TEACHER documented as of this encounter Last [...] She had pain limiting her making a yocha dehe with the thumb and index finger. No [...] Right documented in this encounter Care Teams Department Operations Manager Relationship Specialty Start Date End Date Ben Arce M.D. PCP - General Family Medicine 01/13/[address] [place] [address] documented as of this encounter
--- OUTSIDE RECORDS SUMMARY | 2022-07-06 07:19 | XMS_ITS | Encounter Summary ---
:1990 Author Organization [facility] Address [address] [place] [address] Care Team Providers Name Role Phone Ben Arce M.D. Primary Care Provider Reason for Visit Reason Comments Sinusitis Sinus pressure / sinus drain age/ sinus congestion x 6 weeks Encounter Details Date Type Department Care Team Description 11/08/2021 [facility] [place] [address] [facility] [address] [place] [phone] Social History Tobacco Use Types Packs/Day Years [...] do you attend worship or Never 2021 yarsanism services? Do you [...] at Date Recorded Female 12/02/2021 5:19 PM TANK FURNACE OPERATOR documented as of this encounter Last Filed Vital Signs Vital Sign Reading Time Taken Comments Blood Pressure 126/78 11/08/2021 12:40 PM TANK FURNACE OPERATOR Pulse 78 11/08/2021 12:40 PM TANK FURNACE OPERATOR Temperature 37 ??C (98.6 ??F) 11/08/2021 12:40 PM TANK FURNACE OPERATOR Respiratory Rate 16 11/08/2021 12:40 PM TANK FURNACE OPERATOR Oxygen Saturation 98% 11/08/2021 12:40 PM TANK FURNACE OPERATOR Inhaled Oxygen Concentration - - Weight 72.1 kg (158 lb 14.4 oz) 11/08/2021 12:40 PM TANK FURNACE OPERATOR Height 155 cm (5' 1.02) 11/08/2021 12:40 PM TANK FURNACE OPERATOR Body Mass Index 30 11/08/2021 12:40 PM TANK FURNACE OPERATOR documented in this encounter Patient Instructions Patient InstructionsArely Ferrell APRN, C.N.P. - 11/08/2021 12:30 PM TANK FURNACE OPERATOR Steam, frequent showers to break up mucus in back of throat. Follow up if not gradually improving over the next 7-10 days or sooner if symptoms would worsen. FURNACE OPERATOR AttachmentsThe following attachments cannot be sent through Care Everywhere. Sinusitis (Rhinosinusitis) (Tajik)documented in this encounter Progress Notes Arely Ferrell [...] discussed and reviewed in AVS. Discharged from [facility] in stable condition. I personally spent 20 minutes in total care of the patient today. FURNACE OPERATOR documented in this encounter Plan of Treatment Not on filedocumented as of this encounter Visit Diagnoses Diagnosis Sinusitis - Primary documented in this encounter Care Teams Stamp Redemption Clerk Relationship Specialty Start Date End Date Ben Arce M.D. PCP - General Family Medicine 01/13/[address] [place] [address] documented as of this encounter
--- OUTSIDE RECORDS SUMMARY | 2022-07-06 07:19 | XMS_ITS | Encounter Summary ---
:1990 Author Organization [facility] Address [address] [place] [address] Care Team Providers Name Role Phone Ben Arce M.D. Primary Care Provider Encounter Details Date Type Department Care Team Description 12/20/2021 Silent Schedule Department of Terrence Swenson, Pregnanc y Examination Obstetrics and M.D. Test With Positive Gynecology in [address] [place], [place] [address] [address] [place], [place] [phone] [address] (Work) [phone] Social History Tobacco Use Types Packs/Day Years [...] many times do you More than three anine es a week 11/20/2021 talk on the phone with family, friends, or neighbors? How often do you get together with friends Twice a week 11/20/2021 or relatives? How often do you attend hindu or Never 2021 gnosticism services? Do you [...] at Date Recorded Female 12/02/2021 5:19 PM SAW MAKER documented as of this encounter Plan of Treatment Not on filedocumented as of this encounter Procedures Procedure Name Priority Date/Time Associated Comments Diagnosis US OB FIRST RAD - Routine 12/20/2021 10:50 Results fo r this TRIMESTER (most inpatients AM SAW MAKER Examination Test procedu re are in and all With Positive the results outpatients) Result section. documented in this encounter Results US OB First Trimester (12/20/2021 10:50 AM SAW MAKER) Anatomical Region Laterality Modality Body, Ultrasound OB RST LOS, Ultrasound ARZ LOS N/A Ultrasound Specimen (Source) Anatomical Collection Method Collection Time Re ceived Time Location / / Volume Laterality 12/20/2021 12:31 PM SAW MAKER Impressions 12/20/2021 12:34 PM SAW MAKER Single, viable, intrauterine gestation w ith CARLOS of August 14, 2022 (not consistent with menstrual dating). Narrative 12/20/2021 12:34 PM SAW MAKER EXAM: US OB FIRST TRIMESTER COMPARISON: None Physician: Dr. Swenson FINDINGS: Gestational age and CARLOS by LMP or OB/EHR assignment: 7 w 3 d, CARLOS: 08/05/2022 INTRAUTERINE Pole: Normal, [place]-Rump Length: 0 .50 cm Gestational Sac: Normal [...] 3 d, CARLOS: 08/05/2022 INTRAUTERINE Pole: Normal, [place]-Rump Length: 0 .50 cm Gestational Sac: Normal [...] documented as of this encounter Care Teams Political Advisor Relationship Specialty Start Date End Date Ben Arce M.D. PCP - General Family Medicine 01/13/21 [address] [place] [address] documented as of this encounter
--- OUTSIDE RECORDS SUMMARY | 2022-07-06 07:19 | XMS_ITS | Encounter Summary ---
:1990 Author Organization [facility] Address [address] [place] [address] Care Team Providers Name Role Phone Ben Arce M.D. Primary Care Provider Reason for Visit Reason Comments Med Refill Naproxen Encounter Details Date Type Department Care Team Description 02/10/2021 Refill Department of Ben Metzger M.D. Med Refill (Naproxen) Medicine in [place] [address] [place], [place] [address] [place] [address] [place] [address] [phone] Social History Tobacco Use Types Packs/Day Years [...] do you attend adventism or Never 2021 synagogue services? Do you [...] at Date Recorded Female 12/02/2021 5:19 PM HERB GROWER documented as of this encounter Miscellaneous Notes Telephone Encounter - Kennedi Mckeon, R.M.A. - 02/10/2021 10:12 AM CDT Medication refill Naproxen Last filled 01/13/21 Last OV 01/13/21, 01/07/21 Future appointment None scheduled documented in this encounter Plan of Treatment Not on filedocumented as of this encounter Visit Diagnoses Diagnosis Pain Elbow Left documented in this encounter Care Teams Client Service Administrator Relationship Specialty Start Date End Date Ben Arce M.D. PCP - General Family Medicine 01/13/[address] [facility] [place] [address] documented as of this encounter
--- OUTSIDE RECORDS SUMMARY | 2022-07-06 07:19 | XMS_ITS | Encounter Summary ---
:1990 Author Organization [facility] Address [address] [place] [address] Care Team Providers Name Role Phone Ben Arce M.D. Primary Care Provider Reason for Visit Reason Comments Nurse Visit NOB ED/INTAKE APPT Encounter Details Date Type Department Care Team Description 12/08/2021 Virtual Visit Department of Terrence Swenson M.D. [address] [phone] Encounter For Supervision Of Other Stella l Unspecified Trimester (Primary Dx); Obstetrics and Autumn Patel R.N. [address] [phone] Examination Test With Positive Result Gynecology in [place], [place] [address] [address] Social History Tobacco Use [...] do you attend pentecostal or Never 2021 bahai services? Do you [...] at Date Recorded Female 12/02/2021 5:19 PM FILM PRINTER documented as of this encounter Patient Instructions [...] Provided Today: Beginnings: , , and [facility] brochure-[facility] PRINTER documented in this encounter Progress Notes Autumn Patel R.N. - 12/08/2021 1:30 PM CST Consult conducted via real-time audio/video technology by Autumn Patel R.N. in [facility] to the patient in Patient's Home. episode opened-please see history for details. Conceived with Nexplanon in place-this was removed after positive Beta Hcg. 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 Denies concerns. Encouraged to call with questions or concerns. PRINTER documented in this encounter Plan of Treatment Not on filedocumented as of this encounter Results Hepatitis C Virus Antibody Screen (12/20/2021 11:34 AM FILM PRINTER) athologist Signature HCV Ab Scrn Negative Negative 12/21/2021 [facility] , S 8:10 AM FILM PRINTER Comment: Mjehiw-ol-pwmeuo ratio is <1.00 . Specimen Anatomical Collection Method Collection Time Receive d Time (Source) Location / / Volume Laterality Blood (Blood, 12/20/2021 11:34 12/21/2021 6:40 Venous) AM FILM PRINTER AM FILM PRINTER Cheikh Gautam M.D. LAB MICROBIOLOGY - BLOOD ORD ERABLES Performing Organization Address City/State/ZIP Code Phon e Number [facility] [address] [place] [phone] [facility] [place] [address] Laboratory Medicine and Pathology [address] [place] Syphilis Total Ab w/ Reflex, Serum (12/20/2021 11:34 AM FILM PRINTER) [facility] Method Time Signature Syphilis Nonreactive Nonreactive 12/21/2021 [facility] Total Ab w/ 11:40 AM FILM PRINTER Reflex Comment: No serologic evidence of infection with T. pallidum (syphilis). ??Repeat testing may be cons idered in patients with suspected acute or primary syphilis in 2-4 weeks. For additional information on interpreta tion of the syphilis reverse algorithm and resul ts, see: [email or web address] df Specimen Anatomical Collection Method Collection Time Receive d Time (Source) Location / / Volume Laterality Blood (Blood, 12/20/2021 11:34 12/20/2021 6:27 Venous) AM FILM PRINTER PM FILM PRINTER Cheikh Gautam M.D. LAB BLOOD ADD-ON Performing Organization Address City/[facility] Phon e Number [facility]- [address] [place] [address] [phone] [place] [address] System [address] Rubella Antibodies, IgG (12/20/2021 11:34 AM FILM PRINTER) athologist Signature Rubella Ab, Positive 12/21/2021 [facility] IgG, S 11:40 AM FILM PRINTER Comment: Results suggest response to immunization or prior exposure to the virus. ----REFERENCE VALUE---- Vaccinated: Positive (>=1.0 AI) Unvaccinated: Negative (<=0.7 AI) Rubella IgG Antibody Index 2.6 12/21/2021 11 :40 AM FILM PRINTER [facility] Specimen Anatomical Collection Method Collection Time Receive d Time (Source) Location / / Volume Laterality Blood (Blood, 12/20/2021 11:34 12/20/2021 6:27 Venous) AM FILM PRINTER PM FILM PRINTER Cheikh Gautam M.D. LAB MICROBIOLOGY - BLOOD ORD ERABLES Performing Organization Address City/State/ZIP Code Phon e Number [facility]- [address] [place] [phone] [place] [address] HIV-1/-2 Ag and Ab Scrn, Plasma (12/20/2021 11:34 AM FILM PRINTER) P athologist Signature HIV Ag/Ab Negative Negative 12/21/2021 [facility] Scrn, 11:40 AM FILM PRINTER P Comment: Negative result does not rule out HIV in fection. If exposure to HIV infection occurred <14 d ays ago, contact the laboratory to request additi on of HIV-1 RNA detection / quantification test. HIV-1 p24 Ag Scrn, P Negative Negative 12/21/2021 11:40 AM FILM PRINTER CA Comment: Negative result does not rule out HIV in fection. If exposure to HIV infection occurred <14 d ays ago, contact the laboratory to request additi on of HIV-1 RNA detection / quantification test. HIV-1 Ab Scrn, P Negative Negative 12/21/2021 11: 40 AM FILM PRINTER [place] Comment: Negative result does not rule out HIV in fection. If exposure to HIV infection occurred <14 d ays ago, contact the laboratory to request additi on of HIV-1 RNA detection / quantification test. HIV-2 Ab Scrn, P Negative Negative 12/21/2021 11: 40 AM FILM PRINTER [facility] Comment: Negative result does not rule out HIV in fection. If exposure to HIV infection occurred <14 d ays ago, contact the laboratory to request additi on of HIV-1 RNA detection / quantification test. Specimen Anatomical Collection Method Collection Time Receive d Time (Source) Location / / Volume Laterality Blood (Blood, 12/20/2021 11:34 12/20/2021 6:27 Venous) AM FILM PRINTER PM FILM PRINTER Cheikh Gautam M.D. LAB MICROBIOLOGY - BLOOD ORD ERAKAMALJIT Performing Organization Address City/State/ZIP Code Phon e Number [facility]- [address] [place] [address], [place] [phone] [place] [address] System in [place] HBs Antigen , Serum (12/20/2021 11:34 AM FILM PRINTER) [facility] Method Time Signature HBs Antigen Non reactive Non reactive 12/20/2021 [facility] , S 4:50 PM FILM PRINTER Specimen Anatomical Collection Method Collection Time Receive d Time (Source) Location / / Volume Laterality Blood (Blood, 12/20/2021 11:34 12/20/2021 3:49 Venous) AM FILM PRINTER PM FILM PRINTER Cheikh Gautam M.D. LAB MICROBIOLOGY - BLOOD ORD ERAKAMALJIT Performing Organization Address City/State/ZIP Code Phon e Number [facility]- [address] [place] [address] [facility] [place], [place] [id number] [place] [address] (ABNORMAL) CBC without Differential (12/20/2021 11:34 AM FILM PRINTER) [facility] Method Time Signature Hemoglobin 14.1 11.6 - 12/20/2021 [facility] 15.0 g/dL 11:44 AM FILM PRINTER Hematocrit 41.0 35.5 - 12/20/2021 [facility] 44.9 % 11:44 AM FILM PRINTER Erythrocytes 4.91 3.92 - 12/20/2021 [facility] 5.13 11:44 AM FILM PRINTER x10(12)/L MCV 83.5 78.2 - 12/20/2021 [facility] 97.9 fL 11:44 AM FILM PRINTER RBC Distrib Width 11.7 (L) 12.2 - 12/20/2021 [facility] 16.1 % 11:44 AM FILM PRINTER Platelet Count 360 157 - 371 12/20/2021 [facility] x10(9)/L 11:44 AM FILM PRINTER Leukocytes 11.1 (H) 3.4 - 9.6 12/20/2021 [facility] x10(9)/L 11:44 AM FILM PRINTER Specimen Anatomical Collection Method Collection Time Receive d Time (Source) Location / / Volume Laterality Blood (Blood, 12/20/2021 11:34 12/20/2021 Venous) AM FILM PRINTER 11:40 AM FILM PRINTER Cheikh Gautam M.D. LAB BLOOD ADD-ON Performing Organization Address City/State/ZIP Code Phon e Number [facility]- [address] [place] [address] [place] [address] System in [place] [address] Antibody Screen, RBC (with reflex Antibody ID) (12/20/2021 11:34 AM FILM PRINTER) P athologist Signature Antibody Screen NEG 12/20/2021 AUST 5:16 PM FILM PRINTER Specimen Anatomical Collection Method Collection Time Receive d Time (Source) Location / / Volume Laterality Blood (Blood, 12/20/2021 11:34 12/20/2021 3:49 Venous) AM FILM PRINTER PM FILM PRINTER Cheikh Gautam M.D. LAB BLOOD BANK TEST ORDERABL ES Performing Organization Address City/[facility]/ZIP Code Phon e Number [facility]- [address] [place] [address] [facility] - [address] ABORh, RBC (12/20/2021 11:34 AM FILM PRINTER) P athologist Signature ABO Group O 12/20/2021 5:16 AUST PM FILM PRINTER Rh Type POS 12/20/2021 5:16 AUST PM FILM PRINTER Specimen Anatomical Collection Method Collection Time Receive d Time (Source) Location / / Volume Laterality Blood (Blood, 12/20/2021 11:34 12/20/2021 3:51 Venous) AM FILM PRINTER PM FILM PRINTER Cheikh Gautam M.D. LAB BLOOD BANK TEST ORDERABL ES Performing Organization Address City/State/ZIP Code Phon e Number [facility]- [address] [place] [address] [facility] - [address] Bacterial Culture, Aerobic + Susc, Urine (12/20/2021 11:26 AM FILM PRINTER) [facility] Method Time Signature Urine Culture No growth 12/21/2021 [facility] after 1 day 8:40 AM FILM PRINTER of incubation. Specimen Anatomical Collection Method Collection Time Receive d Time (Source) Location / / Volume Laterality Urine (Urine, 12/20/2021 11:26 12/20/2021 2:19 Midstream) AM FILM PRINTER PM FILM PRINTER Comment: Specimen Source Site: Urine Cheikh Gautam M.D. LAB MICROBIOLOGY - GENERAL O RDERABLES Performing Organization Address City/State/ZIP Code Phon e Number [facility]- [address] [place] [phone] [place] [address] [place] [address] [address] Urinalysis with Microscopic if Indicated (12/20/2021 11:26 AM FILM PRINTER) P athologist Signature Source Urine, 12/20/2021 [facility] Urine, Clean 12:12 PM FILM PRINTER Catch Clarity Clear Clear 12/20/2021 [facility] 12:12 PM FILM PRINTER Color Yellow 12/20/2021 [facility] 12:12 PM FILM PRINTER Comment: ----REFERENCE VALUE---- Colorless Yellow Ronda Blood Negative Negative 12/20/2021 12:12 PM FILM PRINTER [facility] Nitrite Negative Negative 12/20/2021 12:12 PM FILM PRINTER [facility] Leukocyte Esterase Negative Negative 12/20/2021 12:[address] [facility] Protein Negative mg/dL 12/20/2021 12:12 PM FILM PRINTER [facility] Comment: ----REFERENCE VALUE---- Negative Trace Glucose Negative Negative mg/dL 12/20/2021 12:12 PM FILM PRINTER O FRANSICO Ketone Negative Negative mg/dL 12/20/2021 12:12 PM FILM PRINTER O FRANSICO Bilirubin Negative Negative 12/20/2021 12:12 PM FILM PRINTER [facility] pH 6.0 5.0 - 8.0 12/20/2021 12:12 PM FILM PRINTER [facility] Specific [place] 1.005 1.001 - 1.035 12/20/2021 12:12 PM FILM PRINTER [facility] Urobilinogen 0.2 0.2 - 1.0 mg/dL 12/20/2021 12:[address] [facility] Specimen Anatomical Collection Method Collection Time Receive d Time (Source) Location / / Volume Laterality Urine (Urine, 12/20/2021 11:26 12/20/2021 Clean Catch) AM FILM PRINTER 12:06 PM FILM PRINTER Cheikh Gautam M.D. LAB URINE ORDERABLES Performing Organization Address City/State/ZIP Code Phon e Number [facility]- [address] [place] [address] [place] [address] System in [place] [address] documented in this encounter Visit Diagnoses Diagnosis Encounter For Supervision Of Other Stella l Unspecified Trimester (HCC) - Primary Examination Test With Positive Result (HCC) documented in this encounter Care Teams Machine Straw Hat Presser Relationship Specialty Start Date End Date Ben Arce M.D. PCP - General Family Medicine 01/13/[address] [place] [address] documented as of this encounter
--- OUTSIDE RECORDS SUMMARY | 2022-07-06 07:19 | XMS_ITS | Encounter Summary ---
:1990 Author Organization [facility] Address [address] [place] [address] Care Team Providers Name Role Phone Ben Arce M.D. Primary Care Provider Reason for Visit Reason Comments Med Refill Encounter Details Date Type Department Care Team Description 11/24/2021 Refill Department of Family Medicine Ben Maynard M.D. Med Refill in [facility] [address] [place] [phone] (Wo rk) Social History Tobacco Use Types [...] do you attend scientology or Never 2021 confucianism services? Do you [...] at Date Recorded Female 12/02/2021 5:19 PM RADIAL SAW OPERATOR documented as of this encounter Plan of Treatment Not on filedocumented as of this encounter Visit Diagnoses Not on filedocumented in this encounter Care Teams Older Worker Specialist Relationship Specialty Start Date End Date Ben Arce M.D. PCP - General Family Medicine 01/13/[address] [place] [address] documented as of this encounter
--- OUTSIDE RECORDS SUMMARY | 2022-07-06 07:19 | XMS_ITS | Encounter Summary ---
:1990 Author Organization [facility] Address [address] [place] [address] Care Team Providers Name Role Phone Ben Arce M.D. Primary Care Provider Reason for Visit Reason Comments Med Refill Encounter Details Date Type Department Care Team Description 03/16/2021 Refill Department of Family Medicine Ben Maynard M.D. Med Refill in [facility] [address] [place] [phone] (Wo rk) Social History Tobacco Use Types [...] do you attend temple or Never 2021 druze services? Do you [...] Recorded Female 12/02/2021 5:19 PM OFFICE AUTOMATION TECHNICIAN documented as of this encounter Miscellaneous Notes Telephone Encounter - Celina Goyal RMaribellN. - 03/16/2021 11:58 AM CDT Refills must come from Dr Arce due to a Restricted program Unable to refill per protocol: Name of Medications Needing Refill: Naproxen Last Refill Date: 02/10/21 [id number], 0 refills Last / Future Appointment: 01/13/21 documented in this encounter Plan of Treatment Not on filedocumented as of this encounter Visit Diagnoses Diagnosis Pain Elbow Left documented in this encounter Care Teams Metalsmith Helper Relationship Specialty Start Date End Date Ben Arce M.D. PCP - General Family Medicine 01/13/[address] [place] [address] documented as of this encounter
--- OUTSIDE RECORDS SUMMARY | 2022-07-06 07:19 | XMS_ITS | Encounter Summary ---
:1990 Author Organization [facility] Address [address] [place] [address] Care Team Providers Name Role Phone Ben Arce M.D. Primary Care Provider Reason for Referral Specialty Diagnoses / Procedures Referred By Contact Refer red To Contact Ben Arce M.D. [facility] Region [address] [place] [address] Referral ID Status Reason Start Date Expiration Date Visits Requ ested Visits Authorized [address] Encounter Details Date Type Department Care Team Description 11/20/2021 Orders Only [facility] PCP [facility]NT Kimberly Arce M.D. [address] [place], [place] [address] (Wo rk) Social History [...] do you attend yazdanism or Never 2021 mu-ism services? Do you [...] at Date Recorded Female 12/02/2021 5:19 PM CEMENT [address] documented as of this encounter Plan of Treatment Scheduled Referrals Name Type Priority Associated Order Schedule Diagnoses Covid immunization Outpatient Referral Routine Ex pected: office visit Booster 022 (Approximate), Expires: 11/20/2022 documented as of this encounter Visit Diagnoses Not on filedocumented in this encounter Care Teams Molder Foam Rubber Relationship Specialty Start Date End Date Ben Arce M.D. PCP - General Family Medicine 01/13/[address] [facility] [phone] documented as of this encounter
--- OUTSIDE RECORDS SUMMARY | 2022-07-06 07:19 | XMS_ITS | Encounter Summary ---
:1990 Author Organization [facility] Address [address] [place] [address] Care Team Providers Name Role Phone Elsewhere, Pcp Primary Care Provider Unavailable Reason for Referral Outpatient (Routine) - Closed Specialty Diagnoses / Procedures Referred By Contact Refer red To Contact Family Medicine Donya Lind APRN, [facility] C.N.P., D.N.P. Referral ID Status Reason Start Date Expiration Date Visits Requ ested Visits Authorized [id number] Closed 01/07/2021 01/07/2022 1 1 Reason for Visit Reason Comments Follow-up Follow up Elbow Encounter Details Date Type Department Care Team Description 01/07/2021 Office Visit Department of Donya Fitzgerald Pain Elbow Left (Primary Dx); Medicine in [place] [facility] FATOU Lu C.N.PMaribell, Rhinitis Allergic [place], [place] D.N.P. [address] [place] [address] Social History Tobacco Use Types Packs/Day Years [...] do you attend judaism or Never 2021 latter-day services? Do you [...] at Date Recorded Female 12/02/2021 5:19 PM SPRINKLING SYSTEM INSTALLER documented as of this encounter Last [...] Body Mass Index 31.21 12/14/2020 5:24 PM SPRINKLING SYSTEM INSTALLER documented in this encounter Progress Notes Donya [...] meds for pain management. She works at [employer] and has continued to wear sling at [...] plan of care as outlined. Donya Lind, OCULAR CARE AIDE, DNP documented in this encounter Plan of Treatment Scheduled Referrals Name Type Priority Associated Diagnoses Order S [facility] Family Medicine Outpatient Referral Routine Expec taurus: office visit 02/07/2021 (clinic) (Approximate), Expires: 01/08/2024 documented as of this encounter Visit Diagnoses Diagnosis Pain Elbow Left - Primary Rhinitis Allergic documented in this encounter Care Teams Kiln Puller Relationship Specialty Start Date End Date Elsewhere, Pcp PCP - General Family Medicine 01/08/18 01/12/21 documented as of this encounter
--- OUTSIDE RECORDS SUMMARY | 2022-07-06 07:19 | XMS_ITS | Encounter Summary ---
:1990 Author Organization [facility] Address [address] [place] [address] Care Team Providers Name Role Phone Ben Arce M.D. Primary Care Provider Reason for Referral Outpatient (Routine) - Authorized Specialty Diagnoses / Procedures Referred By Contact Refer red To Contact Diagnoses Subdermal Implantable Contraceptive Removal Rlyie Mcdowell M.D. [facility] Procedures Subdermal Contraceptive Device [facility] [place] [address] Referral ID Status Reason Start Date Expiration Date Visits V isits Requested Authorized [id number] Authorized 12/01/2021 12/01/2022 1 1 OP APPLICATION DEVELOPER Reason for Visit Reason Comments nexplanon removal Early . LMP 10/29/21. Pt will see Dr. Swenson in [place] with [facility] for . Appointment Request (Routine) - Closed Specialty Diagnoses / Procedures Referred By Contact Refer red To Contact Obstetrics and Gynecology Referral ID Status Reason Start Date Expiration Date Visits Requ ested Visits Authorized [id number] Closed 11/29/2021 11/29/2022 1 1 Encounter Details Date Type Department Care Team Description 12/01/2021 Office Visit Department of Rylie Mcdowell Subdermal Imp lancesar Obstetrics and Minoo Contraceptive Removal Gynecology in [address] (Primary Dx) [place], [place] [address] [facility] [address] [place], [place] [phone] (Work) [phone] Social History Tobacco Use Types Packs/Day Years [...] do you attend moravian or Never 2021 yazdanism services? Do you [...] at Date Recorded Female 12/02/2021 5:19 PM HADOOP APPLICATION DEVELOPER documented as of this encounter Last Filed Vital Signs Vital Sign Reading Time Taken Comments Blood Pressure 155/91 12/01/2021 2:56 PM HADOOP APPLICATION DEVELOPER Pulse 84 12/01/2021 2:56 PM HADOOP APPLICATION DEVELOPER Temperature 36.2 ??C (97.2 ??F) 12/01/2021 2:56 PM HADOOP APPLICATION DEVELOPER Respiratory Rate - - Oxygen Saturation - - Inhaled Oxygen Concentration - - Weight 69.5 kg (153 lb 4.8 oz) 12/01/2021 2:56 PM HADOOP APPLICATION DEVELOPER Height - - Body Mass Index 28.94 11/08/2021 12:40 PM HADOOP APPLICATION DEVELOPER documented in this encounter Progress Notes Rylie Mcdowell M.D. - 12/01/2021 3:15 PM CST SUBJECTIVE CHIEF COMPLAINT / REASON FOR VISIT Chief Complaint Patient presents with ??? nexplanon removal Early . LMP 10/29/21. Pt will see Dr. Swenson in [place] with [facility] for . HISTORY OF PRESENT CONDITION [...] and Family: Twice a week ??? Attends Jehovah'S Witness Services: Never ??? Active Member of Clubs [...] levels - plan US once HCG above 8869-8875 - Patient is following up at [facility] Diet and exercise, PNV and folate, [...] are no discontinued medications. Rylie Mcdowell M.D. OP APPLICATION DEVELOPER documented in this encounter Procedure Notes [...] lidocaine POST-PROCEDURE DETAILS Complications: no apparent complications GALLERY MANAGER OP APPLICATION DEVELOPER documented in this encounter Plan of Treatment Not on filedocumented as of this encounter Procedures Procedure Name Priority Date/Time Associated Diagnosis Comme nts [place] RM[place] DRUG IMPL Routine 12/01/2021 4:11 PM Subdermal Implant able Results for this HADOOP APPLICATION DEVELOPER Contraceptive Removal proced ure are in the results section. documented in this encounter Results [place] RM[place] DRUG IMPL (12/01/2021 4:11 PM HADOOP APPLICATION DEVELOPER) Narrative MMODAL - 12/01/2021 4:11 PM HADOOP APPLICATION DEVELOPER Rylie Mcdowell M.D. ? 12/01/2021 ??4:12 [...] documented in this encounter Care Teams Chief Medical Physicist Relationship Specialty Start Date End Date Ben Arce M.D. PCP - General Family Medicine 01/13/[address] [place] [phone] documented as of this encounter
--- OUTSIDE RECORDS SUMMARY | 2022-07-06 07:19 | XMS_ITS | Encounter Summary ---
:1990 Author Organization [facility] Address [address] [place] [address] Care Team Providers Name Role Phone Elsewhere, Pcp Primary Care Provider Unavailable Encounter Details Date Type Department Care Team Description 01/07/2021 Hospital Encounter Department of Renae, Zack Hammer, Pain Elbow Left Radiology, [facility], in [place] [address] [place], [place] [address] [place] [address] [place], [place] [phone] (Work) [phone] Social History Tobacco Use Types Packs/Day Years [...] do you attend adventism or Never 2021 methodist services? Do you [...] Date Recorded Female 12/02/2021 5:19 PM MANAGER ASSISTED LIVING documented as of this encounter Medications at [...] Left documented in this encounter Care Teams Direct Sales Professional Relationship Specialty Start Date End Date Elsewhere, Pcp PCP - General Family Medicine 01/08/18 01/12/21 documented as of this encounter
--- OUTSIDE RECORDS SUMMARY | 2022-07-06 07:19 | XMS_ITS | Encounter Summary ---
:1990 Author Organization [facility] Address [address] [place] [address] Care Team Providers Name Role Phone Ben Arce M.D. Primary Care Provider Reason for Visit Reason Comments Other swollen and sore throat and fluid in ears right more than the left. was just here on Sunday and saw Donya for her arm Encounter Details Date Type Department Care Team Description 01/13/2021 Office Visit Department of Ben Metzger M.D. Sore Throat (Primary Medicine in [place] [address] Dx) [place], [place] [address] [place] [address] [place], [place] [phone] (Work) [phone] Social History Tobacco Use Types Packs/Day Years [...] do you attend holiness or Never 2021 mosque services? Do you [...] Date Recorded Female 12/02/2021 5:19 PM RESEARCH ARCHAEOLOGIST documented as of this encounter Last [...] Body Mass Index 31.39 12/14/2020 5:24 PM RESEARCH ARCHAEOLOGIST documented in this encounter Progress Ben Espinal [...] Phon e Number [facility]- [address] [place] [address] [facility] [address] System [address] documented in this encounter Visit Diagnoses Diagnosis Sore Throat - Primary documented in this encounter Care Teams Talent Development Coordinator Relationship Specialty Start Date End Date Ben Arce M.D. PCP - General Family Medicine 01/13/[address] [place] [address] documented as of this encounter
--- OUTSIDE RECORDS SUMMARY | 2022-07-06 07:19 | XMS_ITS | Encounter Summary ---
:1990 Author Organization [facility] Address [address] [place] [address] Care Team Providers Name Role Phone Ben Arce M.D. Primary Care Provider Reason for Visit Reason Comments Nausea OTHER Breast pain Vomiting Positive at home test X 4 Encounter Details Date Type Department Care Team Description 11/24/2021 Comprehensive Visit Department of Grant Jones ncsharyn Test (Primary Dx); Obstetrics and J, WIRE COINER, Counseling Bi rth Control; Gynecology in [facility] C.N.P., M.S.N. Pap Smear Examination [place], [place] [address] [place] [phone] Social History Tobacco Use Types Packs/Day Years [...] you attend latter day or Never 2021 islam services? Do you [...] at Date Recorded Female 12/02/2021 5:19 PM ORE FEEDER documented as of this encounter Last Filed Vital Signs Vital Sign Reading Time Taken Comments Blood Pressure 166/67 11/24/2021 1:50 PM ORE FEEDER Pulse 118 11/24/2021 1:49 PM ORE FEEDER Temperature 37.2 ??C (99 ??F) 11/24/2021 1:49 PM ORE FEEDER Respiratory Rate - - Oxygen Saturation - - Inhaled Oxygen Concentration - - Weight 71.6 kg (157 lb 12.8 oz) 11/24/2021 1:49 PM ORE FEEDER Height - - Body Mass Index 29.79 11/08/2021 12:40 PM ORE FEEDER documented in this encounter Progress Notes Grant [...] STD testing. Grant Jones APRN, Reji.NDany, M.S.N. FEEDER documented in this encounter Miscellaneous Notes Addendum Note - Grant Jones APRN, Reji.N.P., M.S.N. - 11/24/2021 1:15 PM ORE FEEDER Addended by: GRANT JONES on: 11/29/2021 08:00 AM Modules accepted: Orders FEEDER documented in this encounter Plan of Treatment Not on filedocumented as of this encounter Procedures Procedure Name Priority Date/Time Associated Diagnosis Comme nts THINPREP W/HPV Routine 11/24/2021 4:49 PM Pap Smear Results for this CO-TEST SCREEN ORE FEEDER Examination procedure are in the results section. HUMAN CHORIONIC Routine 11/24/2021 2:00 PM Test Resu lts for this GONADOTROPIN (HCG), ORE FEEDER procedur e are in ROBERTA, the results section. HPV WITH GENOTYPING, Routine 11/24/2021 1:53 PM R esults for this PCR, THINPREP ORE FEEDER procedure are in the results section. TEST, POCT, Routine 11/24/2021 1:14 PM Samira t Results for this U (LAB) ORE FEEDER procedure are i n the results section. documented in this encounter Results ThinPrep w/HPV Co-Test Screen (11/24/2021 4:49 PM ORE FEEDER) Component Value Ref Test Analysis Performed Pathologis t Range Method Time At Signature 11/28/2021 HK 3:47 PM ORE FEEDER Report DEBRA Boles(ASCP) 11/28/2021 HK electronically 3:47 PM signed by ORE FEEDER I verify that I have examined all relevant slides/materials for the specimen(s) and rendered or confirmed the diagnosis. Gross Description Received specimen 11/28/2021 HK Y in a ThinPrep 3:47 PM vial. ORE FEEDER Pap Test Source Cervical/Endocervi 11/28/2021 HKCY [place] 3:47 PM ORE FEEDER Interpretation Cervical/Endocervical ??(ThinPrep): 11/28/2021 HKCY 3:47 PM Satisfactory for Evaluation ORE FEEDER Negative for Intraepithelial Lesion or Malignancy Shift [...] Laterality Varies 11/24/2021 4:49 PM 6:36 (Cervix/Endocerv ORE FEEDER AM ORE FEEDER ix) Narrative This result has an attachment that is no t available. Reji Polanco APRN.N.P., M.S.N. LAB PAP PATHDX ORD ERABLES Performing Organization Address City/State/ZIP Code Phon e Number [facility]- [address] [place] [address] [facility] HKCY [facility] [place] [address] [facility] Cytology [address] [facility] (ABNORMAL) hCG (Human Chorionic Gonadotropin), Quantitative, (11/24/2021 2:00 PM ORE FEEDER) athologist Signature HCG, 6.9 (H) <5 IU/L 11/24/2021 NPRG Quantitative, 2:22 PM ORE FEEDER , P Comment: Biotin has been identified by the meir toro as a potential interfering substance. ??Higher concentr ations of biotin may be found in multivitamins, hair/nail supple ments, and workout supplements. ??If the result does not [facility] clinical observations, repeat testing after patient refrains fr om the use of supplements for at least 12 hours. Specimen Anatomical Collection Method Collection Time Receive d Time (Source) Location / / Volume Laterality Blood (Blood, 11/24/2021 2:00 PM 11/24/19 2:01 Venous) ORE FEEDER PM ORE FEEDER Grant Jones APRN, C.N.P., M.S.N. LAB BLOOD ADD-ON Performing Organization Address City/State/ZIP Code Phon e Number [facility]- [address] [place], [place] [address] [place] [address] [place] [address] [place] [address] [place] HPV with Genotyping, PCR, ThinPrep (11/24/2021 1:53 PM ORE FEEDER) athologist Signature HPV with Negative Negative 11/25/2021 MKTO Genotyping, 3:27 PM ORE FEEDER ThinPrep, PCR Comment: Negative for high risk HPV by nucleic ac id amplification. ??The following high risk HPV types were not detected: 16, 18, 31, 33, 35, 39, 45, 51, 52, 56, 58, 59, 66, and 68 Specimen Anatomical Collection Method Collection Time Receive d Time (Source) Location / / Volume Laterality Varies 11/24/2021 1:53 PM 6:36 ORE FEEDER AM ORE FEEDER Reji Polanco APRN.N.Anna., M.S.N. LAB MICROBIOLOGY - GENERAL ORDERABLES Performing Organization Address City/[facility]/ZIP Code Phon e Number [facility]- [address] [place] [address] [place] [address] System in [place] [address] [facility] Test, POCT, Urine (lab) (11/24/2021 1:14 PM ORE FEEDER) P athologist Signature Negative 11/24/2021 NPRG Test, POCT, U 1:21 PM ORE FEEDER Specimen Anatomical Collection Method Collection Time Receive d Time (Source) Location / / Volume Laterality Urine (Urine, 11/24/2021 1:14 PM 11/24/19 1:14 Clean Catch) ORE FEEDER PM ORE FEEDER Grant Jones APRN, C.N.P., M.S.N. LAB POCT ORDERABLE S - DEVICE Performing Organization Address City/[facility]/ZIP Code Phon e Number [facility]- [address] [place] [address] [place] [address] LAB NPRG [place] [address] documented in this encounter Visit Diagnoses Diagnosis Test - Primary Counseling Control Pap Smear Examination documented in this encounter Care Teams Cake Maker Relationship Specialty Start Date End Date Ben Arce M.D. PCP - General Family Medicine 01/13/[address] [place] [phone] documented as of this encounter
--- OUTSIDE RECORDS SUMMARY | 2022-07-06 07:19 | XMS_ITS | Encounter Summary ---
:1990 Author Organization [facility] Address [address] [place] [address] Care Team Providers Name Role Phone Ben [...] Type Department Care Team Description 03/01/2021 Emergency [place] Emergency Valerie Malone Contu sion Head Initial (Primary Dx); Department [place]ino[place] Strain Neck Initial [address] [place] [address] [phone] Social History Tobacco Use Types Packs/Day Years [...] do you attend adventist or Never 2021 scientologist services? Do you [...] at Date Recorded Female 12/02/2021 5:19 PM COPY OPERATOR documented as of this encounter Last [...] through Care Everywhere. Facial or Scalp Contusion (Urdu)documented in this encounter Medications at Time [...] ondansetron ODT disintegrating tablet 4 mg (ZOFRAN-ODT) ([facility]) 1101 (Given - Provider: Nita Rao R.N.) 4 mg, oral, Once, On Sun03/01/21 at 1058 , For 1 dose, When splitting ODT at bedside, handle with gloves and a pill splitter to prevent moisture contact. documented in this encounter Care Teams Interface Designer Relationship Specialty Start Date End Date Ben Arce M.D. PCP - General Family Medicine 01/13/[address] [place] [phone] documented as of this encounter
--- OUTSIDE RECORDS SUMMARY | 2022-07-06 07:19 | XMS_ITS | Encounter Summary ---
:1990 Author Organization [facility] Address [address] [place] [address] Care Team Providers Name Role Phone Ben Arce M.D. Primary Care Provider Encounter Details Date Type Department Care Team Description 05/18/2021 Hospital Encounter Department of Alexander Rendon, Pain Hand Right Radiology, [facility], in [place] [address] [place], [place] [address] [place] [address] [place], [place] [phone] (Work) [phone] Social History Tobacco Use Types Packs/Day Years [...] do you attend taoism or Never 2021 adventism services? Do you [...] at Date Recorded Female 12/02/2021 5:19 PM COST SPECIALIST documented as of this encounter Medications [...] Right documented in this encounter Care Teams Aerial Installer Relationship Specialty Start Date End Date Ben Arce M.D. PCP - General Family Medicine 01/13/[address] [place] [address] documented as of this encounter
--- OUTSIDE RECORDS SUMMARY | 2022-07-06 07:19 | XMS_ITS | Encounter Summary ---
:1990 Author Organization [facility] Address [address] [place] [address] Care Team Providers Name Role Phone Ben Arce M.D. Primary Care Provider Reason for Visit Reason Comments Vomiting Pt presents with nausea and vomiting that began last evening at 1700. Has persisted all night. Pt is 6 weeks . Encounter Details Date Type Department Care Team Description 12/09/2021 Emergency [facility] Emergency Valerie Malone, Nause a And Vomiting (Primary Dx); Department M.D. Less Than 8 Weeks Gestation [address] [place] [phone] Social History Tobacco Use Types Packs/Day Years [...] do you attend yazidi or Never 2021 temple services? Do you [...] Date Recorded Female 12/02/2021 5:19 PM NETWORK DIAGNOSTIC SUPPORT SPECIALIST documented as of this encounter Last Filed Vital Signs Vital Sign Reading Time Taken Comments Blood Pressure 126/87 12/09/2021 9:45 AM NETWORK DIAGNOSTIC SUPPORT SPECIALIST Pulse 95 12/09/2021 10:00 AM NETWORK DIAGNOSTIC SUPPORT SPECIALIST Temperature 37.2 ??C (99 ??F) 12/09/2021 10:00 AM NETWORK DIAGNOSTIC SUPPORT SPECIALIST Respiratory Rate 14 12/09/2021 8:29 AM NETWORK DIAGNOSTIC SUPPORT SPECIALIST Oxygen Saturation 99% 12/09/2021 10:00 AM NETWORK DIAGNOSTIC SUPPORT SPECIALIST Inhaled Oxygen Concentration - - Weight 68.3 kg (150 lb 9.2 oz) 12/09/2021 8:31 AM NETWORK DIAGNOSTIC SUPPORT SPECIALIST Height 155 cm (5' 1.02) 12/09/2021 8:31 AM NETWORK DIAGNOSTIC SUPPORT SPECIALIST Body Mass Index 28.43 12/09/2021 8:31 AM NETWORK DIAGNOSTIC SUPPORT SPECIALIST documented in this encounter Discharge Instructions Discharge InstructionsValerie Malone M.D. - 12/09/2021 9:29 AM CST If you are unable to keep yourself well hydrated at home, please feel free to return. ORK DIAGNOSTIC SUPPORT SPECIALIST AttachmentsThe following attachments cannot be sent through Care Everywhere. Morning Sickness (Wolof)documented in this encounter Medications at Time of [...] normal. ASSESSMENT/PLAN IMPRESSION AND PLAN Vomiting with sfem-lh-hydpqfho dehydration during . I gave normal saline 1 L IV, [id number] mg IV, Zofran 4 mg IV. She [...] 8 Weeks Gestation Valerie Malone M.D. 12/09/219[address] ORK DIAGNOSTIC SUPPORT SPECIALIST documented in this encounter Plan of [...] 1,000 mL New Bag 12/09/2021 8:48 AM NETWORK DIAGNOSTIC SUPPORT SPECIALIST 1,000 mL 1000 mL/hr 1,000 mL, intravenous, at 1,000 mL/hr, Administer over 1 Hours, Once, On Sun12/09/21 at 0836, For 1 dose ondansetron (PF) injection 4 mg (ZOFRAN) Given 12/09/2021 9:31 AM NETWORK DIAGNOSTIC SUPPORT SPECIALIST 4 mg 4 mg, intravenous, Once, On Sun12/09/21 at 0921, For 1 dose pyridoxine (vitamin B6) injection 100 mg Given 12/09/2021 9:00 AM NETWORK DIAGNOSTIC SUPPORT SPECIALIST 100 mg 100 mg, intravenous, Once, On Sun12/09/21 at 0836, For 1 dose sodium chloride 0.9 % injection 10 mL Given 12/09/2021 8:45 AM NETWORK DIAGNOSTIC SUPPORT SPECIALIST 10 mL 10 mL, intravenous, As needed, [...] Recently Administered Medications Times are shown in NETWORK DIAGNOSTIC SUPPORT SPECIALIST. Scheduled Medication Order 12/07/2021 12/08/2021 12/09/2021 NaCl [...] injection documented in this encounter Care Teams Assistant Offset Press Operator Relationship Specialty Start Date End Date Ben Arce M.D. PCP - General Family Medicine 01/13/[address] [place] [phone] documented as of this encounter
--- OUTSIDE RECORDS SUMMARY | 2022-07-06 07:20 | XMS_ITS | Encounter Summary ---
:1990 Author Organization [facility] Address [address] [place] [address] Care Team Providers Name Role Phone Elsewhere, Pcp Primary Care Provider Unavailable Reason for Visit Physical Therapy (Routine) - Denied Specialty Diagnoses / Procedures Referred By Contact Refer red To Contact Diagnoses Tendonitis Loulou Teresa APRN, [facility] Procedures PT Evaluate and treat C.N.P. [address] [place] [phone] Referral ID Status Reason Start Date Expiration Date Visits Requ ested Visits Authorized [id number] Denied 06/08/2020 10/21/2020 1 0 Encounter Details Date Type Department Care Team Description 06/30/2020 Comprehensive Visit Department of Physical Loulou Metz APRN, C.N.P. [address] [place] [phone] Tendonitis Elbow (Primary Dx); Medicine and Yunior Robins P.TMaribell [address] [place] [phone] Tendonitis Rehabilitation in [place], [place] [address] [place] [phone] Social History Tobacco Use Types Packs/Day Years [...] do you attend buddhism or Never 2021 sikh services? Do you belong to any clubs or No 11/20/2021 organizations such as buddhism groups, unions, fraunamia or athletic groups, or school groups? How [...] at Date Recorded Female 12/02/2021 5:19 PM SPOUT LINER documented as of this encounter Consult Notes [...] upper extremity pain/tendinitis Onset Date: 06/08/20 Payor: [facility] [place] CARE / Plan: [facility] CARE RESTRICTED PLAN / Product Type: Medicaid HMO / [facility] Visit Count: 1 P[employer]ENT MEDICAL / [...] Patient works 40 hours at the local [email or web address]. Patient has a 7-1/2-year-old son. 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 Patient works the [...] Department of Physical Medicine and Rehabilitation in [address] [address] Dept: [phone] T LINER documented in this encounter Plan of Treatment Not on filedocumented as of this encounter Visit Diagnoses Diagnosis Tendonitis Elbow - Primary Tendonitis documented in this encounter Care Teams Baker Second Relationship Specialty Start Date End Date Elsewhere, Pcp PCP - General Family Medicine 01/08/18 01/12/21 documented as of this encounter
--- OUTSIDE RECORDS SUMMARY | 2022-07-06 07:20 | XMS_ITS | Encounter Summary ---
:1990 Author Organization [facility] Address [address] [place] [address] Care Team Providers Name Role Phone Elsewhere, Pcp Primary Care Provider Unavailable Reason for Visit Reason Comments Sinus Symptoms ongoing Encounter Details Date Type Department Care Team Description 07/02/2020 Office Visit Urgent Care, [facility], Sin usitis Acute [place], in [place], FATOU, C.N.P., (Samina pendleton Dx) [place] D.N.P. [address] [place] [phone] Social History Tobacco Use Types Packs/Day Years [...] do you attend yazdanism or Never 2021 advent services? Do you [...] at Date Recorded Female 12/02/2021 5:19 PM IT PROJECT MANAGER documented as of this encounter Last [...] bacteria. Still, most people seen in the [facility] for upper respiratory infectionor sinusitis [...] and replace them as recommended by the thermoforming operator. Note: Having your humidity too high [...] help open sinuses and allow easier breathing. Zpbd-otq-kotiaxf treatments* In addition to the previous suggestions, you may get relief for nasal and sinus obstruction or discomfort by taking non-prescription, xmwn-tvt-ybnzxhs (OTC) medications. Many OTC medications combine a [...] Education and Research (MER). All rights reserved. [id number] documented in this encounter Progress Notes Esther [...] has been using Flonase nasal spray and kwlb-sxl-kueppxn decongestant and Tylenol or ibuprofen for symptoms. [...] a humidifier in the room. May use rejm-etz-hazjdvq Flonase to help with congestion. Drink warm liquids throughout the day. COVID testing deferred today per patient. Note for work provided. Follow-up if no improvement in 5-7 days or if new or concerning symptoms develop. Patient verbalized understanding and agrees with this plan. No further needs at this time. Electronically signed by: Esther Adnrea APRN, C.N.Brayan, D.N.P. 07/02/20 11:40 AM CDT documented in this encounter Plan of Treatment Not on filedocumented as of this encounter Visit Diagnoses Diagnosis Sinusitis Acute - Primary documented in this encounter Care Teams Commissary Clerk Relationship Specialty Start Date End Date Elsewhere, Pcp PCP - General Family Medicine 01/08/18 01/12/21 documented as of this encounter
--- OUTSIDE RECORDS SUMMARY | 2022-07-06 07:20 | XMS_ITS | Encounter Summary ---
:1990 Author Organization [facility] Address [address] [place] [address] Care Team Providers Name Role Phone Elsewhere, Pcp Primary Care Provider Unavailable Reason for Visit Reason Comments Amox Encounter Details Date Type Department Care Team Description 10/05/2020 Clinical Communication Department of Family Aguila Arias M.D. [facility] Medicine in [place] [address] [place], [place] [address] [facility] [address] [place], [place] [phone] [address] (Work) [phone] Social History Tobacco Use Types Packs/Day Years [...] do you attend buddhist or Never 2021 restorationism services? Do you [...] at Date Recorded Female 12/02/2021 5:19 PM BOOK CANVASSER documented as of this encounter Miscellaneous Notes Addendum Note - Aguila Arce M.D. - 10/05/2020 4:11 PM BOOK CANVASSER Addended by: AGUILA ARCE on: 10/05/2020 04:11 PM Modules accepted: Orders CANVASSER Addendum Note - Dali Bird R.M.A. - 10/05/2020 4:09 PM BOOK CANVASSER Addended by: DALI BIRD on: 10/05/2020 04:09 PM Modules accepted: Orders CANVASSER Telephone Encounter - Dali Bird R.M.A. - 10/05/2020 4:03 PM BOOK CANVASSER Pt's sister is calling on behalf of sister stating that she is restricted to Dr Arce and needs her amox filled. She saw the dentist today, Dr Kelsea Gamino and he prescribed Amox 500 mg. Take 2 tabs STAT and one tab TID till gone #31. CANVASSER documented in this encounter Plan of Treatment Not on filedocumented as of this encounter Visit Diagnoses Not on filedocumented in this encounter Care Teams Site Specialist Relationship Specialty Start Date End Date Elsewhere, Pcp PCP - General Family Medicine 01/08/18 01/12/21 documented as of this encounter
--- OUTSIDE RECORDS SUMMARY | 2022-07-06 07:20 | XMS_ITS | Encounter Summary ---
:1990 Author Organization [facility] Address [address] [place] [address] Care Team Providers Name Role Phone Elsewhere, Pcp Primary Care Provider Unavailable Reason for Visit Reason Comments Hand Injury pt presents with injury to l eft hand, pt states she was holding onto a door knob yesterday at work when someone pushed the door open and smashed her hand Swelling noted. Encounter Details Date Type Department Care Team Description 12/26/2019 Emergency [place] Emergency Sigrid Forbes ontusion Hand Initial Department Minoo Cervantes Left (Primary Dx) [address] [place] [facility] [place] [address] [phone] (Wo rk) Social History Tobacco Use Types [...] do you attend anglican or Never 2021 presybeterian services? Do you [...] at Date Recorded Female 12/02/2021 5:19 PM LIQUID SUGAR MELTER documented as of this encounter Last Filed Vital Signs Vital Sign Reading Time Taken Comments Blood Pressure 128/90 12/26/2019 10:18 AM LIQUID SUGAR MELTER Pulse 78 12/26/2019 10:18 AM LIQUID SUGAR MELTER Temperature 37 ??C (98.6 ??F) 12/26/2019 10:18 AM LIQUID SUGAR MELTER Respiratory Rate 16 12/26/2019 10:18 AM LIQUID SUGAR MELTER Oxygen Saturation 100% 12/26/2019 10:18 AM LIQUID SUGAR MELTER Inhaled Oxygen Concentration - - Weight 70.8 kg (156 lb 1.4 oz) 12/26/2019 9:26 AM LIQUID SUGAR MELTER Height 155 cm (5' 1.02) 12/26/2019 9:26 AM LIQUID SUGAR MELTER Body Mass Index 29.47 12/26/2019 9:26 AM LIQUID SUGAR MELTER documented in this encounter Discharge Instructions Discharge InstructionsToSigrid geronimo M.D. - 12/26/2019 9:47 AM LIQUID SUGAR MELTER Return to the Emergency Department with any [...] clinic by calling the appointment center at [phone]. Thank you for choosing [facility] for your care. It was a pleasure taking care of you today in our Emergency Department. ID SUGAR MELTER documented in this encounter Medications at Time [...] Forbes M.D. - 12/26/2019 9:37 AM CST [place] [facility] EMERGENCY DEPARTMENT ENCOUNTER Patient Name: [...] 9:49 AM Sigrid Forbes M.D. 12/26/19 1052 ID SUGAR MELTER documented in this encounter Plan of Treatment Not on filedocumented as of this encounter Procedures Procedure Name Priority Date/Time Associated Comments Diagnosis DX HAND LEFT 3 RAD - Semiurgent 12/26/2019 9:39 Result s for this VIEWS (Fast; most ED AM LIQUID SUGAR MELTER procedure are in patients; some the results inpatients) section. documented in this encounter Results DX Hand Left 3 Views (12/26/2019 9:39 AM LIQUID SUGAR MELTER) Anatomical Region Laterality Modality Upper Extremity, Hand, Musculoskeletal RST LOS, Left Digital Radiography Musculoskeletal ARZ LOS, Muskuloskeletal FLA LOS Specimen (Source) Anatomical Collection Method Collection Time Re ceived Time Location / / Volume Laterality 12/26/2019 9:40 AM LIQUID SUGAR MELTER Impressions 12/26/2019 9:41 AM LIQUID SUGAR MELTER No acute radiographic abnormalities are demonstrated. Narrative 12/26/2019 9:41 AM LIQUID SUGAR MELTER EXAM: DX HAND LEFT 3 VIEWS COMPARISON: [...] Primary documented in this encounter Care Teams Pressing Machine Tender Relationship Specialty Start Date End Date Elsewhere, Pcp PCP - General Family Medicine 01/08/18 01/12/21 documented as of this encounter
--- OUTSIDE RECORDS SUMMARY | 2022-07-06 07:20 | XMS_ITS | Encounter Summary ---
:1990 Author Organization [facility] Address [address] [place] [address] Care Team Providers Name Role Phone Elsewhere, Pcp Primary Care Provider Unavailable Reason for Referral Outpatient (Routine) - Closed Specialty Diagnoses / Procedures Referred By Contact Refer red To Contact Emergency Medicine Diagnoses Pain Neck Strain Neck Initial Contusion Leg Initial Left Derrek Leon M.D. [facility] Region [address] [place] [address] Referral ID Status Reason Start Date Expiration Date Visits Requ ested Visits Authorized [id number] Closed 08/01/2019 07/31/2020 1 1 Reason for Visit Reason Comments Neck Pain Pt presents from Urgent care for evaluation of neck pain and tingling of left leg. Encounter Details Date Type Department Care Team Description 08/01/2019 Emergency [place] Emergency Derrek Leon Pa in Neck (Primary Dx); Department M.DMaribell Strain Neck Initial; [address] [facility] [address] [facility] Contusion Leg Initial Left; [place], [place] Paresthesias Feet [phone] Social History Tobacco Use Types Packs/Day [...] do you attend quaker or Never 2021 christian services? Do you [...] at Date Recorded Female 12/02/2021 5:19 PM CHART READER documented as of this encounter Last Filed [...] be sent through Care Everywhere. Muscle Strain (Danish)Cervical Sprain (Danish)Contusion (Danish)documented in this encounter Medications at Time [...] Feet documented in this encounter Care Teams Senior Linux Systems Administrator Relationship Specialty Start Date End Date Elsewhere, Pcp PCP - General Family Medicine 01/08/18 01/12/21 documented as of this encounter
--- OUTSIDE RECORDS SUMMARY | 2022-07-06 07:20 | XMS_ITS | Encounter Summary ---
:1990 Author Organization [facility] Address [address] [place] [address] Care Team Providers Name Role Phone Elsewhere, Pcp Primary Care Provider Unavailable Reason for Visit Reason Comments Wrist Pain 30 y/o f presents with R wri st and hand pain since . Pt says is sharp and radiates up her ar m, no injury, has been taking advil with some relief. Encounter Details Date Type Department Care Team Description 05/30/2020 Emergency [place] Emergency Sigrid Forbes endofrantz Forearm Department D, M.D. (Primary Dx) [address] [place] [facility] [place] [phone] (Wo rk) Social History Tobacco Use Types [...] do you attend samaritan or Never 2021 evangelical services? Do you [...] at Date Recorded Female 12/02/2021 5:19 PM CUSTOMER MARKETING ASSISTANT documented as of this encounter Last [...] Body Mass Index 30.81 12/26/2019 9:26 AM CUSTOMER MARKETING ASSISTANT documented in this encounter Discharge Instructions Discharge [...] clinic by calling the appointment center at [phone]. Thank you for choosing [facility] for your care. It was [...] Forbes M.D. - 05/30/2020 12:11 PM CDT [place] [facility] EMERGENCY DEPARTMENT ENCOUNTER Patient Name: [...] documented in this encounter Care Teams Manager Night Relationship Specialty Start Date End Date Elsewhere, Pcp PCP - General Family Medicine 01/08/18 01/12/21 documented as of this encounter
--- OUTSIDE RECORDS SUMMARY | 2022-07-06 07:20 | XMS_ITS | Encounter Summary ---
:1990 Author Organization [facility] Address [address] [place] [address] Care Team Providers Name Role Phone Elsewhere, Pcp Primary Care Provider Unavailable Reason for Referral Outpatient (Routine) - Closed Specialty Diagnoses / Procedures Referred By Contact Refer red To Contact Family Medicine Zack Macdonald M.D. [facility] Region [address] [place] [address] Referral ID Status Reason Start Date Expiration Date Visits Requ ested Visits Authorized [id number] Closed 12/16/2020 12/16/2021 1 1 STACKER Reason for Visit Reason Comments Follow-up arm injury Encounter Details Date Type Department Care Team Description 12/16/2020 Office Visit Department of Family Zack Macdonald, Pain Elbow Left Medicine in [place]ness[place] (Primary Dx) [place], [place] [address] [place] [phone] Social History Tobacco Use Types Packs/Day Years [...] 11/20/2021 organizations such as orthodoxy groups, unions, [employer]Vox[employer] LLC or athletic groups, or school groups? How [...] at Date Recorded Female 12/02/2021 5:19 PM HAY STACKER documented as of this encounter Last Filed Vital Signs Vital Sign Reading Time Taken Comments Blood Pressure 126/92 12/16/2020 3:16 PM HAY STACKER Pulse 78 12/16/2020 3:11 PM HAY STACKER Temperature 36.2 ??C (97.2 ??F) 12/16/2020 3:11 PM HAY STACKER Respiratory Rate - - Oxygen Saturation 97% 12/16/2020 3:11 PM HAY STACKER Inhaled Oxygen Concentration - - Weight 72.1 kg (158 lb 14.4 oz) 12/16/2020 3:11 PM HAY STACKER Height - - Body Mass Index 31.2 12/14/2020 5:24 PM HAY STACKER documented in this encounter Patient Instructions Patient InstructionsZack Macdonald M.D. - 12/16/2020 3:30 PM CST 1. Make an appointment in 3 weeks for follow-up. 2. Sling as needed for comfort. 3. Continue to work on range of motion with the shoulder and elbow. 4. Tylenol or ibuprofen as needed for discomfort. STACKER documented in this encounter Progress Notes Zack [...] Tylenol or ibuprofen as needed for discomfort. STACKER documented in this encounter Plan of Treatment Scheduled Referrals Name Type Priority Associated Diagnoses Order S [facility] Outpatient Referral Routine Expec taurus: office [...] Left documented in this encounter Care Teams Driver Relationship Specialty Start Date End Date Elsewhere, Pcp PCP - General Family Medicine 01/08/18 01/12/21 documented as of this encounter
--- OUTSIDE RECORDS SUMMARY | 2022-07-06 07:20 | XMS_ITS | Encounter Summary ---
:1990 Author Organization [facility] Address [address] [place] [address] Care Team Providers Name Role Phone Elsewhere, Pcp Primary Care Provider Unavailable Reason for Visit Reason Comments Sore Throat SX: in ER Sunday with josiane st inflammation; st started Encounter Details Date Type Department Care Team Description 07/26/2019 [facility].-C. (Primary Dx) [place], [place] [address], [address] [place] [phone] (Wo rk) Social History Tobacco Use Types [...] do you attend amish or Never 2021 sabianist services? Do you [...] at Date Recorded Female 12/02/2021 5:19 PM CARGO ROUTER documented as of this encounter Last Filed [...] City/State/ZIP Code Phon e Number [place] [address] [place] [address] [facility], PCR, Point [...] City/State/ZIP Code Phon e Number [place] [address] [place] [address] [facility] documented in this encounter Visit Diagnoses Diagnosis Pharyngitis Acute - Primary documented in this encounter Care Teams Group Teacher Relationship Specialty Start Date End Date Elsewhere, Pcp PCP - General Family Medicine 01/08/18 01/12/21 documented as of this encounter
--- OUTSIDE RECORDS SUMMARY | 2022-07-06 07:20 | XMS_ITS | Encounter Summary ---
:1990 Author Organization [facility] Address [address] [place] [address] Care Team Providers Name Role Phone Elsewhere, Pcp Primary Care Provider Unavailable Reason for Referral Outpatient (Routine) - Closed Specialty Diagnoses / Procedures Referred By Contact Refer red To Contact Neurology Diagnoses Contusion Leg Initial Left Numbness Ben Arce M.D. [facility] Region [address] [place] [address] Referral ID Status Reason Start Date Expiration Date Visits V isits Requested Authorized [id number] Closed Specialty 08/11/2019 08/10/2020 1 1 Services Required Reason for Visit Reason Comments Follow-up ED 08/01 [facility] Outpatient (Routine) - Closed Specialty Diagnoses / Procedures Referred By Contact Refer red To Contact Emergency Medicine Diagnoses Pain Neck Strain Neck Initial Contusion Leg Initial Left Derrek Leon M.D. [facility] Region [facility] [place] [address] Referral ID Status Reason Start Date Expiration Date Visits Requ ested Visits Authorized [id number] Closed 08/01/2019 07/31/2020 1 1 Encounter Details Date Type Department Care Team Description 08/11/2019 Office Visit Department of Ben Metzger M.D. Pain Neck (Primary Dx); Medicine in [facility] [address] Strain Neck Initial; [place], [place] Contusion Leg Initial Left; [address] [place] [address] Numbness [place], [place] [phone] (Work) [phone] Social History Tobacco Use Types Packs/Day Years [...] do you attend shinto or Never 2021 synagogue services? Do you [...] Date Recorded Female 12/02/2021 5:19 PM SECURITY THREAT ANALYST documented as of this encounter Last [...] Numbness documented in this encounter Care Teams National Recruiter Relationship Specialty Start Date End Date Elsewhere, Pcp PCP - General Family Medicine 01/08/18 01/12/21 documented as of this encounter
--- OUTSIDE RECORDS SUMMARY | 2022-07-06 07:20 | XMS_ITS | Encounter Summary ---
:1990 Author Organization [facility] Address [address] [place] [address] Care Team Providers Name Role Phone Elsewhere, Pcp Primary Care Provider Unavailable Reason for Visit Reason Comments Facial Pain Pt presents for eval of sinu s pain, congestion, throat pain and claire ear pain. sick for 3 1/2 weeks . No known fever. Using OTC sudafed and afrin without relief. Encounter Details Date Type Department Care Team Description 09/09/2019 Emergency [place] Emergency Sigrid Forbes (Primary Dx); Department D, M.D. Infection Upper Respiratory Viral [address] [facility] [place] [phone] (Wo rk) Social History Tobacco Use Types [...] do you attend sabianist or Never 2021 adventism services? Do you [...] at Date Recorded Female 12/02/2021 5:19 PM PEN RULER OPERATOR documented as of this encounter Last Filed Vital Signs Vital Sign Reading Time Taken Comments Blood Pressure 135/101 09/09/2019 9:30 AM PEN RULER OPERATOR Pulse 75 09/09/2019 9:30 AM PEN RULER OPERATOR Temperature 36 ??C (96.8 ??F) 09/09/2019 9:30 AM PEN RULER OPERATOR Respiratory Rate 18 09/09/2019 9:30 AM PEN RULER OPERATOR Oxygen Saturation 96% 09/09/2019 9:30 AM PEN RULER OPERATOR Inhaled Oxygen Concentration - - Weight 72.6 kg (160 lb) 09/09/2019 9:39 AM PEN RULER OPERATOR Height 152.4 cm (5') 09/09/2019 9:39 AM PEN RULER OPERATOR Body Mass Index 31.25 09/09/2019 9:39 AM PEN RULER OPERATOR documented in this encounter Discharge Instructions Discharge InstructionsTomSigrid remy M.D. - 09/09/2019 9:41 AM PEN RULER OPERATOR Return to the Emergency Department if you [...] clinic by calling the appointment center at [phone]. Thank you for choosing [facility] for your care. It was a pleasure taking care of you today in our Emergency Department. RULER OPERATOR AttachmentsThe following attachments cannot be sent through Care Everywhere. Sinus Rinse [id number] (French)Sinusitis Adult Joio-ju-Pzxh (French) documented in this encounter Medications at Time [...] Forbes M.D. 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 09/09/19946 RULER OPERATOR documented in this encounter Plan of Treatment Not on filedocumented as of this encounter Visit Diagnoses Diagnosis Sinusitis - Primary Infection Upper Respiratory Viral documented in this encounter Care Teams Director Life Sales Relationship Specialty Start Date End Date Elsewhere, Pcp PCP - General Family Medicine 01/08/18 01/12/21 documented as of this encounter
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
--- OUTSIDE RECORDS SUMMARY | 2022-07-06 07:20 | XMS_ITS | Encounter Summary ---
:1990 Author Organization [facility] Address [address] [place] [address] Care Team Providers Name Role Phone Elsewhere, Pcp Primary Care Provider Unavailable Reason for Visit Reason Comments Pain In Limb Follow up on left elbow Outpatient (Routine) - Closed Specialty Diagnoses / Procedures Referred By Contact Refer red To Contact Family Medicine Zack Macdonald M.D. [facility] Region [address] [place] [address] Referral ID Status Reason Start Date Expiration Date Visits Requ ested Visits Authorized [id number] Closed 12/16/2020 12/16/2021 1 1 Encounter Details Date Type Department Care Team Description 12/24/2020 Office Visit Department of Donya Fitzgerald Pain Elbow Left Medicine in [facility], FATOU, C.N.P., (Primary Dx) [place], [place] D.N.P. [address] [place] [phone] Social History Tobacco Use Types Packs/Day Years [...] do you attend baptism or Never 2021 druze services? Do you [...] Date Recorded Female 12/02/2021 5:19 PM GROUND INTELLIGENCE OFFICER documented as of this encounter Last Filed Vital Signs Vital Sign Reading Time Taken Comments Blood Pressure 128/80 12/24/2020 3:26 PM GROUND INTELLIGENCE OFFICER Pulse 80 12/24/2020 3:26 PM GROUND INTELLIGENCE OFFICER Temperature 36.4 ??C (97.5 ??F) 12/24/2020 3:26 PM GROUND INTELLIGENCE OFFICER Respiratory Rate - - Oxygen Saturation 97% 12/24/2020 3:26 PM GROUND INTELLIGENCE OFFICER Inhaled Oxygen Concentration - - Weight 72.1 kg (158 lb 15.2 oz) 12/24/2020 3:26 PM GROUND INTELLIGENCE OFFICER Height - - Body Mass Index 31.21 12/14/2020 5:24 PM GROUND INTELLIGENCE OFFICER documented in this encounter Progress Notes [...] plan of care. Donya Lind, MIGUELANGEL, DNP [place] INTELLIGENCE OFFICER documented in this encounter Plan of Treatment Not on filedocumented as of this encounter Visit Diagnoses Diagnosis Pain Elbow Left - Primary documented in this encounter Care Teams Videotape Sales Representative Relationship Specialty Start Date End Date Elsewhere, Pcp PCP - General Family Medicine 01/08/18 01/12/21 documented as of this encounter
--- OUTSIDE RECORDS SUMMARY | 2022-07-06 07:20 | XMS_ITS | Encounter Summary ---
:1990 Author Organization [facility] Address [address] [place] [address] Care Team Providers Name Role Phone Elsewhere, Pcp Primary Care Provider Unavailable Reason for Visit MRI/CAT/PET Scan (Routine) - Closed Specialty Diagnoses / Procedures Referred By Contact Refer red To Contact Radiology Diagnoses Pain Cervical Esther Andrea, ACCESS DEVELOPER, [facility] Region Procedures CT Cervical Spine without IV Contrast C.N.P., D.N.P. [address] [place] [address] Referral ID Status Reason Start Date Expiration Date Visits Requ ested Visits Authorized [id number] Closed 08/01/2019 07/31/2020 1 1 Encounter Details Date Type Department Care Team Description 08/01/2019 Hospital Encounter Department of Radiology Eliazar Andrea britt, in [facility] FATOU, C.N.P., [address] [place], [place] [phone] [place] [phone] [place] [phone] Social History Tobacco Use Types Packs/Day Years [...] do you attend alevism or Never 2021 sikhism services? Do you belong to any clubs or No 11/20/2021 organizations such as alevism groups, unions, fraMYOMO or athletic groups, or school groups? How [...] Date Recorded Female 12/02/2021 5:19 PM RESIDENTIAL COLLECTIONS documented as of this encounter Medications at [...] N/A Computed Tomography ARZ LOS, Neuroradiology [facility] Specimen (Source) Anatomical Collection Method Collection [...] on filedocumented in this encounter Care Teams Leadership Development Consultant Relationship Specialty Start Date End Date Elsewhere, Pcp PCP - General Family Medicine 01/08/18 01/12/21 documented as of this encounter
--- OUTSIDE RECORDS SUMMARY | 2022-07-06 07:20 | XMS_ITS | Encounter Summary ---
:1990 Author Organization [facility] Address [address] [place] [address] Care Team Providers Name Role Phone Elsewhere, [...] Type Department Care Team Description 07/23/2019 Emergency [place] Emergency Bull Calderon Cos tochondritis (Primary Department M.D. Dx) [address] [facility] [place] [phone] Social History Tobacco Use Types Packs/Day Years [...] do you attend yazidi or Never 2021 worship services? Do you [...] at Date Recorded Female 12/02/2021 5:19 PM PATROL JUDGE documented as of this encounter Last Filed [...] cannot be sent through Care Everywhere. Costochondritis Huqe-dx-Cbdz (Georgian)documented in this encounter Medications at Time of [...] Plan Impression: Costochondritis Plan: Patient has utilize xbpx-kxs-wknkilx medications without improvement or alteration in her symptomatology. Patient be started on prednisone 20 mg daily for 5 days, the 1st dose administered here in the emergency department. Ultram 50 mg 1/2-1 tablet to be utilized every 6 hours as needed for painrating 7-10/10 severity, quantity 15 with no refills was prescribed from the [employer] medication dispenser as it is currently raining [...] dose documented in this encounter Care Teams Instrumentation Manager Relationship Specialty Start Date End Date Elsewhere, Pcp PCP - General Family Medicine 01/08/18 01/12/21 documented as of this encounter
--- OUTSIDE RECORDS SUMMARY | 2022-07-06 07:20 | XMS_ITS | Encounter Summary ---
:1990 Author Organization [facility] Address [address] [place] [address] Care Team Providers Name Role Phone Elsewhere, Pcp Primary Care Provider Unavailable Reason for Referral MRI/CAT/PET Scan (Routine) - Closed Specialty Diagnoses / Procedures Referred By Contact Refer red To Contact Radiology Diagnoses Pain Cervical Esther Andrea APRN, [facility] Region Procedures CT Thoracic Spine without IV Contrast C.N.P., D.N.P. [address] [place] [address] Referral ID Status Reason Start Date Expiration Date Visits Requ ested Visits Authorized [id number] Closed 08/01/2019 07/31/2020 1 1 Reason for Visit MRI/CAT/PET Scan (Routine) - Closed Specialty Diagnoses / Procedures Referred By Contact Refer red To Contact Radiology Diagnoses Pain Cervical Emre, FATOU Santana, [facility] Region Procedures CT Thoracic Spine without IV Contrast C.N.P., D.N.P. [address] [place] [address] Referral ID Status Reason Start Date Expiration Date Visits Requ ested Visits Authorized [id number] Closed 08/01/2019 07/31/2020 1 1 Encounter Details Date Type Department Care Team Description 08/01/2019 Hospital Encounter Department of Radiology Eliazar Andrea, Pain Cervical [place] C.N.P., [address] [facility] [place], [place] [address] [place] [address] [place], [place] [phone] Social History Tobacco Use Types Packs/Day [...] do you attend rastafarian or Never 2021 taoist services? Do you [...] at Date Recorded Female 12/02/2021 5:19 PM PULP BEATER documented as of this encounter Medications at [...] Cervical documented in this encounter Care Teams Filler Spreader Relationship Specialty Start Date End Date Elsewhere, Pcp PCP - General Family Medicine 01/08/18 01/12/21 documented as of this encounter
--- OUTSIDE RECORDS SUMMARY | 2022-07-06 07:20 | XMS_ITS | Encounter Summary ---
:1990 Author Organization [facility] Address [address] [place] [address] Care Team Providers Name Role Phone Elsewhere, Pcp Primary Care Provider Unavailable Reason for Visit Reason Comments Arm Injury pt presents with left arm (e lbow area) pain after falling this morning around 0730. Pt fell outside on icy pavement. No other injuries. Pt did work all day at [employer]. Encounter Details Date Type Department Care Team Description 12/14/2020 Emergency [place] Emergency CalderonBull M, Inj ury Arm Initial Left Department M.D. (Primary Dx) [address] [place] [phone] Social History Tobacco Use Types Packs/Day Years [...] do you attend lutheran or Never 2021 taoism services? Do you [...] at Date Recorded Female 12/02/2021 5:19 PM TURRET LATHE OPERATOR documented as of this encounter Last Filed Vital Signs Vital Sign Reading Time Taken Comments Blood Pressure 149/105 12/14/2020 6:00 PM TURRET LATHE OPERATOR Pulse 68 12/14/2020 6:10 PM TURRET LATHE OPERATOR Temperature 37.1 ??C (98.8 ??F) 12/14/2020 6:00 PM TURRET LATHE OPERATOR Respiratory Rate 16 12/14/2020 6:00 PM TURRET LATHE OPERATOR Oxygen Saturation 97% 12/14/2020 6:10 PM TURRET LATHE OPERATOR Inhaled Oxygen Concentration - - Weight 71.8 kg (158 lb 4.6 oz) 12/14/2020 5:24 PM TURRET LATHE OPERATOR Height 152 cm (4' 11.84) 12/14/2020 5:24 PM TURRET LATHE OPERATOR Body Mass Index 31.08 12/14/2020 5:24 PM TURRET LATHE OPERATOR documented in this encounter Discharge Instructions AttachmentsThe following attachments cannot be sent through Care Everywhere.RICE Therapy for Routine Care of Injuries Cdxg-db-Ybka (Upper Sorbian)documented in this encounter Medications at Time of [...] injuries. Pt did work all day at [employer]. ) HISTORY OF PRESENT ILLNESS 30-year-old female [...] the fall. She went to work at [employer], where she work throughout the day, though [...] Arm Initial Left Bull Calderon M.D. 12/14/201810 ET LATHE OPERATOR documented in this encounter Plan of Treatment Not on filedocumented as of this encounter Procedures Procedure Name Priority Date/Time Associated Comments Diagnosis DX WRIST LEFT 3+ RAD - Semiurgent 12/14/2020 5:57 Resu lts for this VIEWS (Fast; most ED PM TURRET LATHE OPERATOR procedure are in patients; some the results inpatients) section. DX SHOULDER LEFT RAD - Semiurgent 12/14/2020 5:54 Resu lts for this 2+ VIEWS (Fast; most ED PM TURRET LATHE OPERATOR procedure are in patients; some the results inpatients) section. DX ELBOW LEFT 3+ RAD - Semiurgent 12/14/2020 5:52 Resu lts for this VIEWS (Fast; most ED PM TURRET LATHE OPERATOR procedure are in patients; some the results inpatients) section. documented in this encounter Results DX Wrist Left 3+ Views (12/14/2020 5:57 PM TURRET LATHE OPERATOR) Anatomical Region Laterality Modality Upper Extremity, Wrist, Musculoskeletal RST LOS, Left Digital Radiography Musculoskeletal ARZ LOS, Muskuloskeletal FLA LOS Specimen (Source) Anatomical Collection Method Collection Time Re ceived Time Location / / Volume Laterality 12/14/2020 5:58 PM TURRET LATHE OPERATOR Impressions 12/14/2020 5:59 PM TURRET LATHE OPERATOR No acute radiographic abnormalities are demonstrated. Narrative 12/14/2020 5:59 PM TURRET LATHE OPERATOR EXAM: DX WRIST LEFT 3+ VIEWS COMPARISON: [...] Shoulder Left 2+ Views (12/14/2020 5:54 PM TURRET LATHE OPERATOR) Anatomical Region Laterality Modality Upper Extremity, Shoulder, Musculoskeletal RST LOS, Left Digital Radiography Musculoskeletal ARZ LOS, Muskuloskeletal FLA LOS Specimen (Source) Anatomical Collection Method Collection Time Re ceived Time Location / / Volume Laterality 12/14/2020 5:57 PM TURRET LATHE OPERATOR Impressions 12/14/2020 5:58 PM TURRET LATHE OPERATOR No acute radiographic abnormalities are demonstrated. Narrative 12/14/2020 5:58 PM TURRET LATHE OPERATOR EXAM: DX SHOULDER LEFT 2+ VIEWS COMPARISON: [...] Elbow Left 3+ Views (12/14/2020 5:52 PM TURRET LATHE OPERATOR) Anatomical Region Laterality Modality Upper Extremity, Elbow, Musculoskeletal RST LOS, Left Digital Radiography Musculoskeletal ARZ LOS, Muskuloskeletal FLA LOS Specimen (Source) Anatomical Collection Method Collection Time Re ceived Time Location / / Volume Laterality 12/14/2020 5:56 PM TURRET LATHE OPERATOR Impressions 12/14/2020 5:57 PM TURRET LATHE OPERATOR No acute radiographic abnormalities are demonstrated. Narrative 12/14/2020 5:57 PM TURRET LATHE OPERATOR EXAM: DX ELBOW LEFT 3+ VIEWS COMPARISON: [...] tablet 1,000 mg Given 12/14/2020 5:28 PM TURRET LATHE OPERATOR 1,000 mg (TYLENOL) 1,000 mg, oral, Once, On Sun12/14/20 at 1721, For 1 dose documented in this encounter Active and Recently Administered Medications Times are shown in TURRET LATHE OPERATOR. Scheduled Medication Order 12/12/2020 12/13/2020 12/14/2020 acetaminophen tablet 1,000 mg (TYLENOL) (COMPLETED) 1728 (Given - Provider: Nita Maira, R.N.) 1,000 mg, oral, Once, On Sun12/14/20 at 1721, For 1 dose documented in this encounter Care Teams Collections Representative Relationship Specialty Start Date End Date Elsewhere, Pcp PCP - General Family Medicine 01/08/18 01/12/21 documented as of this encounter
--- OUTSIDE RECORDS SUMMARY | 2022-07-06 07:20 | XMS_ITS | Encounter Summary ---
:1990 Author Organization [facility] Address [address] [place] [address] Care Team Providers Name Role Phone Elsewhere, Pcp Primary Care Provider Unavailable Reason for Visit Reason Comments Sinusitis Encounter Details Date Type Department Care Team Description 01/10/2020 Office Visit Urgent Care, [facility], Sin usitis Acute [place], in [place], FATOU, C.N.P., (Samina pendleton Dx) [place] D.N.P. [address] [place] [phone] [phone] Social History Tobacco Use Types Packs/Day Years [...] do you attend sikh or Never 2021 denominational services? Do you [...] Date Recorded Female 12/02/2021 5:19 PM METAL BUILDINGS ASSEMBLER documented as of this encounter Last Filed [...] Body Mass Index 30.4 12/26/2019 9:26 AM METAL BUILDINGS ASSEMBLER documented in this encounter Patient Instructions Patient [...] bacteria. Still, most people seen in the [facility] for upper respiratory infectionor sinusitis [...] and replace them as recommended by the block handler. Note: Having your humidity too high (more [...] help open sinuses and allow easier breathing. Gyyd-age-jofwwap treatments* In addition to the previous suggestions, you may get relief for nasal and sinus obstruction or discomfort by taking non-prescription, ucef-mlb-rnywuab (OTC) medications. Many OTC medications combine a [...] [facility] ([facility]). All rights reserved. [id number] documented in this encounter Progress Notes Esther [...] Primary documented in this encounter Care Teams Radiology Assistant Relationship Specialty Start Date End Date Elsewhere, Pcp PCP - General Family Medicine 01/08/18 01/12/21 documented as of this encounter
--- OUTSIDE RECORDS SUMMARY | 2022-07-06 07:20 | XMS_ITS | Encounter Summary ---
:1990 Author Organization [facility] Address [address] [place] [address] Care Team Providers Name Role Phone Elsewhere, Pcp Primary Care Provider Unavailable Reason for Visit Reason Comments Vomiting Pt presents w/nausea, vomiti ng and diarrhea onset 2300 yesterday. Encounter Details Date Type Department Care Team Description 11/11/2019 Emergency [place] Emergency Sigrid Forbes ausea And Vomiting (Primary Dx); Department D, M.D. Diarrhea [address] [place] [phone] (Wo rk) Social History Tobacco Use Types [...] do you attend samaritan or Never 2021 protestant services? Do you [...] at Date Recorded Female 12/02/2021 5:19 PM CONDITIONING ROOM WORKER documented as of this encounter Last Filed Vital Signs Vital Sign Reading Time Taken Comments Blood Pressure 112/79 11/11/2019 7:01 AM CONDITIONING ROOM WORKER Pulse 81 11/11/2019 7:01 AM CONDITIONING ROOM WORKER Temperature 36.4 ??C (97.5 ??F) 11/11/2019 7:01 AM CONDITIONING ROOM WORKER Respiratory Rate 16 11/11/2019 7:01 AM CONDITIONING ROOM WORKER Oxygen Saturation 93% 11/11/2019 7:01 AM CONDITIONING ROOM WORKER Inhaled Oxygen Concentration - - Weight 71.8 kg (158 lb 4.6 oz) 11/11/2019 5:50 AM CONDITIONING ROOM WORKER Height 152.4 cm (5') 11/11/2019 5:50 AM CONDITIONING ROOM WORKER Body Mass Index 30.91 11/11/2019 5:50 AM CONDITIONING ROOM WORKER documented in this encounter Discharge Instructions Discharge InstructionsToSigrid geronimo M.D. - 11/11/2019 6:51 AM CONDITIONING ROOM WORKER Return to the Emergency Department/ if he [...] clinic by calling the appointment center at [phone]. Thank you for choosing [facility] for your care. It was a pleasure taking care of you today in our Emergency Department. ITIONING ROOM WORKER AttachmentsThe following attachments cannot be sent through Care Everywhere. Nausea and Vomiting Adult (Citizen Of [place])Diarrhea Adult Xkry-vz-Xtcy (Citizen Of [place]) documented in this encounter Medications at Time [...] Forbes M.D. - 11/11/2019 6:16 AM CST [place] [facility] EMERGENCY DEPARTMENT ENCOUNTER Patient Name: Lulu Mata PCP: Primary Care Physician SUBJECTIVE CHIEF COMPLAINT/REASON FOR VISIT Vomiting (Pt presents w/nausea, vomiting and diarrhea onset 2300 yesterday.) HISTORY OF PRESENT ILLNESS Lulu Mata is a 29 y.o. female with a history of asthma presenting with 7 hours of vomiting and diarrhea. She ate dinner at the [employer] last night. Several different types of food [...] felt well before eating dinner at the [employer]. She denies any recentabdominal pain, no prior [...] Forbes M.D. 11/11/19650 Sigrid Forbes M.D. 11/11/19654 ITIONING ROOM WORKER documented in this encounter Plan of Treatment Not on filedocumented as of this encounter Visit Diagnoses Diagnosis Nausea And Vomiting - Primary Diarrhea documented in this encounter Administered Medications Inactive Administered Medications - up to 3 most recent administrations Medication Order MAR Action Action Date Dose Rate Site ondansetron ODT disintegrating Given 11/11/2019 6:10 AM CONDITIONING ROOM WORKER 8 mg tablet 8 mg (ZOFRAN-ODT) 8 mg, oral, Once, On Sun11/11/19 at 0605, For 1 dose, When splitting ODT at bedside, handle with gloves and a pill splitter to prevent moisture contact. documented in this encounter Active and Recently Administered Medications Times are shown in CONDITIONING ROOM WORKER. Scheduled Medication Order 11/09/2019 11/10/2019 11/11/2019 ondansetron ODT disintegrating tablet 8 mg (ZOFRAN-ODT) ([facility]) 0610 (Given - Provider: Tara Brock R.N.) 8 mg, oral, Once, On Sun11/11/19 at 0605 , For 1 dose, When splitting ODT at bedside, handle with gloves and a pill splitter to prevent moisture contact. documented in this encounter Care Teams Pipe Buffer Relationship Specialty Start Date End Date Elsewhere, Pcp PCP - General Family Medicine 01/08/18 01/12/21 documented as of this encounter
--- OUTSIDE RECORDS SUMMARY | 2022-07-06 07:20 | XMS_ITS | Encounter Summary ---
:1990 Author Organization [facility] Address [address] [place] [address] Care Team Providers Name Role Phone Elsewhere, Pcp Primary Care Provider Unavailable Reason for Referral Physical Therapy (Routine) - Denied Specialty Diagnoses / Procedures Referred By Contact Refer red To Contact Diagnoses Tendonitis Loulou Teresa APRN, [facility] Procedures PT Evaluate and treat C.N.P. [address] [place] [address] Referral ID Status Reason Start Date Expiration Date Visits Requ ested Visits Authorized [id number] Denied 06/08/2020 10/21/2020 1 0 Reason for Visit Reason Comments Post Ed Visit Follow-up Encounter Details Date Type Department Care Team Description 06/08/2020 Office Visit Department of [facility] Loulou Teresa Te ndonitis (Primary Medicine in [facility] ELECTRONIC DATA PROCESSING AUDITOR, C.N.P. Dx) [place], [place] [address] [place] [phone] Social History Tobacco Use Types Packs/Day Years [...] do you attend mandaeism or Never 2021 confucianism services? Do you [...] at Date Recorded Female 12/02/2021 5:19 PM HYDROLOGIC ENGINEER documented as of this encounter Last [...] documented in this encounter Care Teams Rug Underlay Machine Operator Relationship Specialty Start Date End Date Elsewhere, Pcp PCP - General Family Medicine 01/08/18 01/12/21 documented as of this encounter
--- OUTSIDE RECORDS SUMMARY | 2022-07-06 07:20 | XMS_ITS | Encounter Summary ---
:1990 Author Organization [facility] Address [address] [place] [address] Care Team Providers Name Role Phone Elsewhere, [...] Type Department Care Team Description 07/29/2019 Emergency [place] Emergency Sigrid Forbes ontusion Left Lower Department D, MMaribellDMaribell Leg Initial (Primary [address] Dx) [place] [phone] (Wo rk) Social History Tobacco Use Types [...] do you attend anabaptist or Never 2021 catholic services? Do you belong to any clubs or No 11/20/2021 organizations such as anabaptist groups, unions, fraiSoccer or athletic groups, or school groups? How [...] at Date Recorded Female 12/02/2021 5:19 PM PROCESS IMPROVEMENT ANALYST documented as of this encounter Last [...] clinic by calling the appointment center at [phone]. Thank you for choosing [facility] for your care. It was a pleasure taking care of you today in our Emergency Department. AttachmentsThe following attachments cannot be sent through Care Everywhere. Contusion Jtpw-fd-Wlkf (Arabic)documented in this encounter Medications at Time of Discharge Medication Sig Dispensed Refills Start Date End Date acetaminophen (TYLENOL Take by mouth as 0 08/11/2019 ORAL) needed. etonogestreL (NEXPLANON) 1 each by implant 0 12/2112/20/2021 68 mg subdermal implant route continuously. documented as of this encounter ED Notes Sigrid Forbes M.D. - 07/29/2019 4:50 PM CDT [place] [facility] EMERGENCY DEPARTMENT ENCOUNTER Patient Name: [...] of the incident with the reassuring ROS [facility] neuro system, I do not feel [...] CDT eGFR-Black/Afric >90 >=60 07/29/2019 [facility] an [place] mL/min/BSA 6:50 PM CDT Comment: ----ADDITIONAL INFORMATION---- [...] [facility]- [address] [place] [address] [facility] [address] [place] [address] [address] [facility] (ABNORMAL) CBC without Differential (07/29/2019 6:21 PM CDT) [facility] Method Time Signature Hemoglobin 13.2 11.6 [...] [facility]- [address] [place], [place] [address] [facility] [place] [address] [facility] [address] DX Ankle [...] Sigrid Forbes M.D. IMG DIAGNOSTIC IMAGING PROCE RUST CT Lumbar Spine by Reconstruction (07/29/2019 5:43 [...] LEFT tibia and fibula Sigrid Forbes M.D. [facility] DIAGNOSTIC IMAGING PROCE DURES DX Femur Left [...] (Given - Provider: Gurdeep Persaud(R)(CT) - Comment: [id number]) 100 mL, intravenous, Once in imaging, co [...] 1651 documented in this encounter Care Teams Time Lock Expert Relationship Specialty Start Date End Date Elsewhere, Pcp PCP - General Family Medicine 01/08/18 01/12/21 documented as of this encounter
--- OUTSIDE RECORDS SUMMARY | 2022-07-06 07:20 | XMS_ITS | Encounter Summary ---
:[address] [facility] Address [address] [place] [address] Care Team Providers Name Role Phone Elsewhere, Pcp Primary Care Provider Unavailable Reason for Referral Outpatient (Routine) - Closed Specialty Diagnoses / Procedures Referred By Contact Refer red To Contact Diagnoses [facility] Ben Arce M.D. [address] [place] [address] Referral ID Status Reason Start Date Expiration Visits Visits Date Requested Authorized [id number] Closed Continuity of 10/06/2020 10/06/2021 1 1 Care OR INSTALLER Reason for Visit Reason Comments Communication referral Encounter Details Date Type Department Care Team Description 10/06/2020 Clinical Communication Department of Ben Arce Comm unication Family Medicine in [place] (referral ) [place] [address] [facility] [address] [facility] [phone] Social History Tobacco Use Types Packs/Day Years [...] do you attend anglican or Never 2021 mandaeism services? Do you [...] at Date Recorded Female 12/02/2021 5:19 PM MIRROR INSTALLER documented as of this encounter Miscellaneous Notes Telephone Encounter - Wilma Montelongo R.N. - 10/06/2020 4:17 PM CST Pt advised that referral was faxed to [facility]: [phone] OR INSTALLER Telephone Encounter - Ben Arce M.D. - 10/06/2020 2:55 PM CST External referral order placed. Please fax for patient. Thanks. It should be printed in the office printer. Thanks. OR INSTALLER Telephone Encounter - Ilene Gautam - 10/06/2020 [...] to send referral for her to see [facility] Dentist in [place]. She is on a restricted program through insurance and they will only cover this if referred by Dr. Arce. She is having a tooth pulled on Sunday. Please fax to fax #[phone]. Please call her to let her know if this is done. Thank you. I will send this information to the appropriate staff member who will look into your concern. Is there anything else I can help you with today? Thank you for calling [facility]. OR INSTALLER documented in this encounter Plan of Treatment Not on filedocumented as of this encounter Visit Diagnoses Diagnosis [facility] - Primary documented in this encounter Care Teams Unit Director Relationship Specialty Start Date End Date Elsewhere, Pcp PCP - General Family Medicine 01/08/18 01/12/21 documented as of this encounter
--- OUTSIDE RECORDS SUMMARY | 2022-07-06 07:20 | XMS_ITS | Encounter Summary ---
:1990 Author Organization [facility] Address [address] [place] [address] Care Team Providers Name Role Phone Elsewhere, Pcp Primary Care Provider Unavailable Reason for Referral Outpatient (Routine) - Canceled Specialty Diagnoses / Procedures Referred By Contact Refer red To Contact Diagnoses Numbness Ben Arce M.D. External, Referring [address] [place] [address] Referral ID Status Reason Start Date Expiration Date Visits V isits Requested Authorized [id number] Canceled No 08/26/2019 08/25/2020 1 1 access/unsa tisfactory access EM ARCHITECT Reason for Visit Reason Onset Date Comments Communication 08/26/2019 Encounter Details Date Type Department Care Team Description 08/26/2019 Clinical Communication Department of Ben Metzger , Communication Medicine in [place], [place] [address] [place] [address] [phone] Social History Tobacco Use Types Packs/Day Years [...] do you attend religion or Never 2021 moravian services? Do you belong to any clubs or No 11/20/2021 organizations such as religion groups, unions, fraWolf [employer] or athletic groups, or school groups? How [...] at Date Recorded Female 12/02/2021 5:19 PM SYSTEM ARCHITECT documented as of this encounter Miscellaneous Notes Telephone Encounter - Alexandria Whittington - 08/27/2019 9:52 AM CST I will work on this. EM ARCHITECT Telephone Encounter - Sridhar Espinal - 08/27/2019 8:24 AM CST Alexandria, can you work on this please? Thank you!! EM ARCHITECT Telephone Encounter - Ben Arce M.D. - 08/26/2019 3:36 PM CST External referral order placed. Please help her to find nearby neurology. None in [place], she has travel to [place] or [facility]. Thanks. EM ARCHITECT Telephone Encounter - Nadya Koehler, RMaribellN. - 08/26/2019 12:19 PM SYSTEM ARCHITECT Can an outside referral be entered for neurology for sooner appointment? Thank you. EM ARCHITECT Telephone Encounter - Rylie Juárez - 08/26/2019 12:[address] Daiana Booth does not have an opening in [place] until December and Lulu cannot [facility]. Can a referral be placed for a neurologist that is closer? EM ARCHITECT documented in this encounter Plan of Treatment Not on filedocumented as of this encounter Visit Diagnoses Diagnosis Numbness - Primary documented in this encounter Care Teams Document Processor Relationship Specialty Start Date End Date Elsewhere, Pcp PCP - General Family Medicine 01/08/18 01/12/21 documented as of this encounter
--- OUTSIDE RECORDS SUMMARY | 2022-07-06 07:21 | XMS_ITS | Encounter Summary ---
:1990 Author Organization [facility] Address [address] [place] [address] Care Team Providers Name Role Phone Unavailable Primary Care Provider Unavailable Encounter Details Date Type Department Care Team Description 01/15/2017 Hospital Encounter HX [facility] MAP[facility]rezN Felix Guillen M.D. [address] [place], [place] [address] (Wo rk) Social History [...] do you attend restorationism or Never 2021 episcopalian services? 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 [address] Name: DILLAN MATA Date of : 1990 12:00 AM Visit Date: 01/15/2017 7:46 PM [facility] Number: [id number] Address: [address] [place] [address] Primary Care Provider: PCP, BHARATHI IMPORTANT: [facility] in [place] would like to thank you for allowing [...] becomes cold, blue, numb or tingly ?? [id number] [facility], [address] [place] [address], [place] [address]. All rights reserved. This information is not [...] dont have one. Go to [email or web address] and click on Create Your Account. Then, follow the directions to complete the online form. Youll be asked for your [facility] number which you can find at [...] a ride home with a responsible republican. LARISSA Carrizales KALLIE , or responsible republican have received this [...] a ride home with a responsible republican. LARISSA Carrizales KALLIE or responsible republican have received this information and my questions have been answered. I have discussed any challenges I see with this plan with the nurse or physician. Patient Signature or Responsible Constitution Party/Relationship Date Time Provider Signature Date Time Source: [employer] Document Id: [id number] Angelica Sandra R.N. - 01/15/2017 11:20 PM CDT ED Depart Summary [facility] Emergency Department Clinical Discharge Summary PERSON INFORMATION Name DILLAN MATA Age 26 Years 1990 12:00 AM Sex Female Language Icelandic PCP PCP, ELSEWHERE Marital Status Unknown Visit Id Visit Reason Hand pain-swelling; SWOLLEN RIGHT HAND Specialty Enc Type Emergency Med Service Emergency Medicine Referred by Track Group MAQN ED Discharge 01/15/2017 11:10 PM Tracking Id [id number] Checkout 01/15/2017 11:10 PM Checkin 01/15/2017 7:46 PM Acuity 4 -Less Urgent Dispo Type * Discharged to Home or Self Care Arrival 01/15/2017 7:46 PM Reg Status LOS 000 03:24 Address: [address] [place] [id number] Comment: PROVIDER INFORMATION Provider Role Provider Contact Time ANGELICA SANDRA ED Nurse 01/15/17 19:57 NIKOS MENDEZ MD ED Provider 01/15/17 20:09 DIAGNOSIS Contusion Hand Initial R Comment: PATIENT EDUCATION INFORMATION Instructions: CONTUSION, Hand Follow up: With: Address: When: Follow up with primary care provider Within As Needed Comments: Call for follow up appointment. If symptoms worsen. Source: [facility] POWERCHART Document Id: [id number] documented in this encounter Medications at Time [...] ANGELICA SANDRA - 01/15/2017 23:19 CDT Source: [employer] Document Id: [id number] CDT!9 Angelica Sandra R.N. - 01/15/2017 11:05 [...] ANGELICA SANDRA - 01/15/2017 23:19 CDT Source: [employer] Document Id: [id number] CDT!9 Angelica Sandra R.N. - 01/15/2017 11:02 [...] Motor Response Sophie : Obeys simple commands [place] Coma Score : 15 ANGELICA SANDRA 01/15/2017 23:02 CDT GI Reassess GI Patient Stated Symptoms : None ANGELICA SANDRA - 01/15/2017 23:02 CDT /OB Reassess Patient Stated Symptoms : None ANGELICA SANDRA - 01/15/2017 23:02 CDT Source: [employer] Document Id: [id number] CDT!34 Kim Bartholomew R.N. - 01/15/2017 10:00 [...] Brenda RN - 01/15/2017 22:00 CDT Source: [employer] Document Id: [id number] CDT!15 Nikos Mendez M.D. - 01/15/2017 9:52 [...] Stat, Patient Bed, Once, 01/15/2017 21:53 CDT, [facility] Urology. Radiology results:Emergency physician interpretation: Creator: Nikos Mendez Date: Jan 15, 2017 23:04:53 Subject: Preliminary ER Physician Findings (preliminary only - not final):Three-view x-ray of the right hand: Negative for fracture or dislocation. Brant Cortes Impression and Plan Diagnosis Contusion Hand Initial R (Discharge, Emergency medicine, Medical) Plan Condition: Stable. Disposition: Discharged: Time 01/15/2017 23:05:00, to home. Prescriptions: Prescription Vacuum Metalizing Supervisor Pharmacy: ibuprofen 200 mg oral tablet (Prescribe): [...] MENDEZ MD On: 01/15/2017 11:07 PM Source: [facility] POWERCHART Document Id: [id number]} Angelica Sandra R.N. - 01/15/2017 8:55 PM [...] Response Sophie : Oriented Best Motor Response [place] : Obeys simple commands Sophie Coma Score : 15 ANGELICA SANDRA 01/15/2017 20:55 CDT GI Reassess GI Patient Stated Symptoms : None ANGELICA SANDRA 01/15/2017 20:55 CDT Source: [facility] POWERCHART Document Id: [id number] CDT!3 Angelica Sandra R.N. - 01/15/2017 7:51 [...] PNED ; Probability: 0 ; Diagnosis Code: [id number] Triage Chief Complaint Description : Pt presents [...] kg/m2 ANGELICA SANDRA - 01/15/2017 19:51 CDT [place] Coma Eye Opening Response [place] : Spontaneously Best Verbal Response [place] : Oriented Best Motor Response [place] : Obeys simple commands Sophie Coma Score [...] None ANGELICA SANDRA 01/15/2017 19:51 CDT Source: [employer] Document Id: [id number] CDT!117 documented in this encounter Miscellaneous Notes Miscellaneous - Conversion, Historical Provider Ser - 01/15/2017 11:10 PM CDT Coding Summary-Paper Based CODING DATE: 01/22/2017 FINAL [facility] STATUS: * Discharged to Home or [...] DUONG Date Saved: 01/22/2017 10:08 am Source: [employer] Document Id: [id number] Miscellaneous - Angelica Sandra RMaribellN. - 01/15/2017 11:05 PM CDT Valuables/Belongings Valuables/Belongings Entered On: 01/15/2017 23:20 CDT Performed On: 01/15/2017 23:05 CDT by ANGELICA SANDRA Valuables/Belongings Belongings Sent Home With : all belongings sent home with patient ANGELICA SANDRA - 01/15/2017 23:20 CDT Source: [employer] Document Id: [id number] CDT!3 documented in this encounter Plan of [...]
--- OUTSIDE RECORDS SUMMARY | 2022-07-06 07:21 | XMS_ITS | Encounter Summary ---
:1990 Author Organization [facility] Address [address] [place] [address] Care Team Providers Name Role Phone Elsewhere, Pcp Primary Care Provider Unavailable Reason for Visit Reason Comments Headache frontal and middle of head Earache Cipriano ear pain Sore Throat drainage Sinus Problem over 1 month Encounter Details Date Type Department Care Team Description 01/07/2018 Office Visit Express Care in [facility] Janel DoddPlatinum, [place] FATOU Samuel, C.N.P., (Primary Dx) [address] [place] [address] Social History Tobacco Use Types Packs/Day Years [...] at Date Recorded Female 12/02/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 She works at [employer] with several people throughout theday. She has [...] Primary documented in this encounter Care Teams Student Financial Aid Manager Relationship Specialty Start Date End Date Elsewhere, Pcp PCP - General Family Medicine 01/08/18 01/12/21 documented as of this encounter
--- OUTSIDE RECORDS SUMMARY | 2022-07-06 07:21 | XMS_ITS | Encounter Summary ---
:1990 Author Organization [facility] Address [address] [place] [address] Care Team Providers Name Role Phone Elsewhere, Pcp Primary Care Provider Unavailable Reason for Visit Reason Comments Skin Problem pt is noted to have bump i n left armpit and left groin, both are painful, denies fever or chi lls, states the leg bump popped on sunday Encounter Details Date Type Department Care Team Description 08/07/2018 Emergency [place] [facility] Bull Calderon Car buncle Of Groin (Primary Dx); Department M.D. Carbuncle Axilla Left [address] [place] [phone] Social History Tobacco Use Types Packs/Day Years [...] do you attend gnosticism or Never 2021 christianity services? 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
--- OUTSIDE RECORDS SUMMARY | 2022-07-06 07:21 | XMS_ITS | Encounter Summary ---
:1990 Author Organization [facility] Address [address] [place] [address] Care Team Providers Name Role Phone Elsewhere, Pcp Primary Care Provider Unavailable Encounter Details Date Type Department Care Team Description 01/28/2019 Hospital Encounter Department of Radiology, Ben Arias M.D. [place] [address] [address] [place], [place] [facility] [address] [place] [address] [phone] Social History Tobacco Use Types Packs/Day Years [...] do you attend hindu or Never 2021 anabaptism services? 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
--- OUTSIDE RECORDS SUMMARY | 2022-07-06 07:21 | XMS_ITS | Encounter Summary ---
:1990 Author Organization [facility] Address [address] [place] [address] Care Team Providers Name Role Phone Elsewhere, Pcp Primary Care Provider Unavailable Reason for Visit Reason Comments Sinus Symptoms 30 + days ago Encounter Details Date Type Department Care Team Description 12/12/2018 Office Visit Express Care in [facility] Mario Savage, Inf ection [place], [place] P.A.-C. Respiratory (Primary [address], [place]x) [facility] [address] [place], [place] [phone] (Wo rk) Social History Tobacco Use Types [...] do you attend islam or Never 2021 mormon services? 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 documented as of this encounter Last Filed Vital Signs Vital Sign Reading Time Taken Comments Blood Pressure 136/92 12/12/2018 7:15 PM EXECUTOR OF ESTATE Pulse 86 12/12/2018 7:15 PM EXECUTOR OF ESTATE Temperature 36.9 ??C (98.4 ??F) 12/12/2018 7:15 PM EXECUTOR OF ESTATE Respiratory Rate - - Oxygen Saturation 96% 12/12/2018 7:15 PM EXECUTOR OF ESTATE Inhaled Oxygen Concentration - - Weight 72 kg (158 lb 11.7 oz) 12/12/2018 7:15 PM EXECUTOR OF ESTATE Height - - Body Mass Index 31 10/31/2018 6:04 PM EXECUTOR OF ESTATE documented in this encounter Patient Instructions Patient [...] urgent care if worsening. Mario Savage P.A.-C. UTOR OF ESTATE documented in this encounter Progress Notes Mario [...] urgent care if worsening. Mario Savage P.A.-C. UTOR OF ESTATE documented in this encounter Plan of Treatment Not on filedocumented as of this encounter Visit Diagnoses Diagnosis Infection Upper Respiratory - Primary documented in this encounter Care Teams Tile Layer Relationship Specialty Start Date End Date Elsewhere, Pcp PCP - General Family Medicine 01/08/18 01/12/21 documented as of this encounter
--- OUTSIDE RECORDS SUMMARY | 2022-07-06 07:21 | XMS_ITS | Encounter Summary ---
:1990 Author Organization [facility] Address [address] [place] [address] Care Team Providers Name Role Phone Elsewhere, Pcp Primary Care Provider Unavailable Reason for Visit Reason Comments Sore Throat pt with 2 1/2 week history o f sinus congestion now presents with sore throat. Throat pain started about 4 days ago, and is getting worse every day. Encounter Details Date Type Department Care Team Description 09/22/2018 Emergency [place] [facility] Marissa Mccormack, Catie lawsonnicole Acute Department D.O. (Primary Dx) [address] [place] [id number] Social History Tobacco Use Types Packs/Day Years [...] do you attend episcopalian or Never 2021 adventist services? 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 documented as of this encounter Last Filed Vital Signs Vital Sign Reading Time Taken Comments Blood Pressure 128/88 09/22/2018 9:00 AM NURSING ADMINISTRATOR Pulse 88 09/22/2018 9:00 AM NURSING ADMINISTRATOR Temperature 37.5 ??C (99.5 ??F) 09/22/2018 9:00 AM NURSING ADMINISTRATOR Respiratory Rate 16 09/22/2018 9:00 AM NURSING ADMINISTRATOR Oxygen Saturation 99% 09/22/2018 9:00 AM NURSING ADMINISTRATOR Inhaled Oxygen Concentration - - Weight 71.9 kg (158 lb 8.2 oz) 09/22/2018 8:10 AM NURSING ADMINISTRATOR Height 157 cm (5' 1.81) 09/22/2018 8:10 AM NURSING ADMINISTRATOR Body Mass Index 29.17 09/22/2018 8:10 AM NURSING ADMINISTRATOR documented in this encounter Discharge Instructions Discharge InstructionsBuMarissa lopez D.O. - 09/22/2018 8:59 AM CST Take the steroids daily, and take ibuprofen and/or tylenol as needed for pain. You should return to the ED for dehydration, if you are more swollen, have difficulty breathing or cannot swallow. ING ADMINISTRATOR AttachmentsThe following attachments cannot be sent through Care Everywhere.Sore Throat (Thai)documented in this encounter Medications at Time [...] Pharyngitis Acute Marissa Mccormack D.O. 09/22/18 0917 ING ADMINISTRATOR documented in this encounter Plan of Treatment Not on filedocumented as of this encounter Procedures Procedure Name Priority Date/Time Associated Diagnosis Comme nts RAPID STREP A STAT 09/22/2018 8:37 AM Results for this SCREEN NURSING ADMINISTRATOR procedure are i n the results section. BACTERIAL CULTURE, STAT 09/22/2018 8:37 AM Res ults for this THROAT NURSING ADMINISTRATOR procedure are i n the results section. documented in this encounter Results Bacterial Culture, Throat (09/22/2018 8:37 AM NURSING ADMINISTRATOR) [facility] Method Time Signature Throat No growth of 09/24/2018 [facility] Culture Streptococcus 7:07 AM NURSING ADMINISTRATOR HEALTH pyogenes [facility] Specimen Anatomical Collection Method Collection Time Receive d Time (Source) Location / / Volume Laterality Throat Swab 09/22/2018 8:37 AM 8 3:28 NURSING ADMINISTRATOR PM NURSING ADMINISTRATOR Marissa Mccormack D.O. LAB MICROBIOLOGY - GENERAL O RDERABLES Performing Organization Address City/State/ZIP Code Phon e Number [facility] [address] [place] [address] LAB Rapid Strep A Screen (09/22/2018 8:37 AM NURSING ADMINISTRATOR) P athologist Signature Rapid Strep A Negative Negative 09/22/2018 [facility] Screen 8:52 AM [facility] Specimen Anatomical Collection Method Collection Time Receive d Time (Source) Location / / Volume Laterality Varies (Throat) 09/22/2018 8:37 AM 2017 8:41 NURSING ADMINISTRATOR AM NURSING ADMINISTRATOR Marissa Mccormack D.O. LAB MICROBIOLOGY - GENERAL O RDERABLES Performing Organization Address City/State/ZIP Code Phon e Number [address] [address] [place] [facility] documented in this encounter Visit Diagnoses Diagnosis Pharyngitis Acute - Primary documented in this encounter Care Teams Grain Trader Relationship Specialty Start Date End Date Elsewhere, Pcp PCP - General Family Medicine 01/08/18 01/12/21 documented as of this encounter
--- OUTSIDE RECORDS SUMMARY | 2022-07-06 07:21 | XMS_ITS | Encounter Summary ---
:1990 Author Organization [facility] Address [address] [place] [address] Care Team Providers Name Role Phone Unavailable Primary Care Provider Unavailable Encounter Details Date Type Department Care Team Description 06/14/2017 Hospital Encounter HX [facility] MAQN Essence Yin M.D. 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 documented as of this encounter Last [...] 06/14/2017 9:06 PM CDT ED Depart Summary [facility] Emergency Department Clinical Discharge Summary PERSON INFORMATION Name DILLAN MATA Age 27 Years 1990 12:00 AM Sex Female Language Haitian PCP PCP, ELSEWHERE Marital Status Unknown Visit Id Visit Reason Foot injury - Minor; FOOT PAIN Specialty Enc Type Emergency Med Service Emergency Medicine Referred by Track Group AAKASHMonica ED Discharge 06/14/2017 7:45 PM Tracking Id [id number] Checkout 06/14/2017 7:45 PM Checkin 06/14/2017 6:17 PM Acuity 4 -Less Urgent Dispo Type * Discharged to Home or Self Care Arrival 06/14/2017 6:17 PM Reg Status LOS 000 01:28 Address: [address] [place] [phone] Comment: PROVIDER INFORMATION Provider Role Provider Contact Time CHAVA KUHN SECURITY AGENT Nurse 06/14/17 18:44 CHU ADKINS MD ED Provider 06/14/17 18:52 ANDREW BROCK SECURITY AGENT Nurse 06/14/17 19:21 DIAGNOSIS Sprain Foot Initial L Comment: PATIENT EDUCATION INFORMATION Instructions: SPRAIN FOOT Follow up: With: Address: When: Follow up with primary care in 1 week if not improving. Return to the ED for increasing pain or swelling. Within As Needed Source: [facility] POWERCHART Document Id: [id number] Andrew Brock R.N. - 06/14/2017 9:06 PM CDT ED Discharge Instructions [address] [address] Name: DILLAN MATA Date of : 1990 12:00 AM Visit Date: 06/14/2017 6:17 PM [facility] Number: [id number] Address: [address] [facility] [id number] Primary Care Provider: PCPBHARATHI IMPORTANT: [facility] in [place] would like to thank you for allowing [...] become cold, blue, numb, or tingly ?? [id number] [facility], [address] [place] [address]. All rights reserved. This information is not [...] you dont have one. Go to [email or web address] and click on Create Your Account. Then, follow the directions to complete the online form. Youll be asked for your [facility] number which you can find at [...] with a responsible constitution party. I, DILLAN MTAA , or responsible constitution party have received this information and my questions have been answered. I have discussed any challenges I see with this plan with the nurse or physician. Patient Signature or Responsible Green Party/Relationship Date Time Provider Signature Date Time This document has images extracted. Please consider using [employer] for all your patient education needs. Source: [employer] Document Id: [id number] Andrew Brock R.N. - 06/14/2017 7:45 PM CDT ED Disposition Summary ED Disposition Summary Entered On: 06/14/2017 20:33 CDT Performed On: 06/14/2017 19:45 CDT by ANDREW BROCK SECURITY AGENT Disposition Summary Present in Room During Exam/Procedure : Alone Mode of Discharge : Ambulatory Transportation : Private vehicle Discharge From ED With : Home Med List Printed Discharge Instructions Given to Patient : Yes Patient Status at Discharge from ED : Improved 30 Minutes Critical Care : No ANDREW BROCK RN - 06/14/2017 20:33 CDT Source: [employer] Document Id: [id number] CDT!9 documented in this encounter Medications at [...] BROCK RN - 06/14/2017 21:05 CDT Source: [facility] Document Id: [id number] CDT!18 Andrew Brock R.N. - 06/14/2017 7:30 [...] BROCK RN - 06/14/2017 22:10 CDT Source: [facility] POWERCHART Document Id: [id number] CDT!5 Andrew Brock R.N. - 06/14/2017 7:21 [...] ANDREW BROCK RN - 06/14/2017 19:21 CDT [place] Coma Eye Opening Response [place] : Spontaneously Best Verbal Response [place] : Oriented Best Motor Response Sophie : [...] BROCK RN - 06/14/2017 19:21 CDT Source: [facility] Document Id: [id number] CDT!37 Chu Adkins M.D. - 06/14/2017 6:52 [...] Stat, Patient Bed, Once, 06/14/2017 18:53 CDT, [facility] Urology. Radiology results:* Final Report * Reason [...] Transcribed by: ROSHAN Technologist: NAYANA ESPOSITO RT(R)(CT) [id number] This document has an image Result type: XR Foot Left 3 or more views Result date: June 14, 2017 19:14 CDT Result status: Auth (Verified) Result title: XR Foot Left 3 or more views Performed by: DAVID SEPULVEDA MD on June 14, 2017 19:18 CDT Verified by: DAVID SEPULVEDA MD on June 14, 2017 19:18 CDT Encounter info: [id number], [facility], Emergency, 06/14/2017 - . [...] ADKINS MD On: 06/14/2017 07:35 PM Source: [facility] POWERCHART Document Id: {[id number]} Chava Kuhn R.N. - 06/14/2017 6:37 PM [...] PNED ; Probability: 0 ; Diagnosis Code: [id number] Triage Triage Treatments : Ice to affected [...] Ambulatory Track : Trauma Other Languages : Haitian Vital Signs Assessed : Yes Treatments Prior [...] CDT DCP GENERIC CODE Tracking Group : [facility] ED Tracking Acuity : 4 -Less [...] Heart Rhythm : Regular Skin Color : [place] Skin Description : Normal Skin Temperature : [...] KUHN RN - 06/14/2017 18:37 CDT Source: [facility] [employer] Document Id: [id number] CDT!3 documented in this encounter Miscellaneous Notes Miscellaneous - Andrew Brock RHarish - 06/14/2017 7:45 PM CDT Valuables/Belongings Valuables/Belongings Entered On: 06/14/2017 20:33 CDT Performed On: 06/14/2017 19:45 CDT by ANDREW BROCK RN Valuables/Belongings Belongings Sent Home With : All sent w/pt at d/c Home Medication Disposition : None brought in with patient ANDREW BROCK RN - 06/14/2017 20:32 CDT Source: [employer] Document Id: [id number] CDT!4 Miscellaneous - Conversion, Historical Provider Ser - 06/14/2017 7:45 PM CDT Coding Summary-Paper Based CODING DATE: 06/26/2017 FINAL AAKASH [place] [facility] STATUS: * Discharged to Home or Self [...] LORD Date Saved: 06/26/2017 09:17 am Source: [employer] Document Id: [id number] documented in this encounter Plan of Treatment [...]
--- OUTSIDE RECORDS SUMMARY | 2022-07-06 07:21 | XMS_ITS | Encounter Summary ---
:1990 Author Organization [facility] Address [address] [place] [address] Care Team Providers Name Role Phone Elsewhere, Pcp Primary Care Provider Unavailable Reason for Referral Outpatient (Routine) - Closed Specialty Diagnoses / Procedures Referred By Contact Refer red To Contact Family Medicine Ben Arce M.D. [facility] Region [address] [place] [address] Referral ID Status Reason Start Date Expiration Date Visits Requ ested Visits Authorized [id number] Closed 01/28/2019 01/28/2020 1 1 Reason for Visit Reason Comments Follow-up Sprain knee Encounter Details Date Type Department Care Team Description 01/28/2019 Comprehensive Visit Department of Ben Metzger, Pain Knee Left (Primary Dx); [facility]; [place], [place] [address] Thrombosis Superficial Vein Lower Extremity Left [address] [place] [phone] Social History Tobacco Use Types Packs/Day Years [...] do you attend hoahaoism or Never 2021 baptism services? Do you belong to any clubs or No 11/20/2021 organizations such as hoahaoism groups, unions, fraAluwave or athletic groups, or school groups? 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
--- OUTSIDE RECORDS SUMMARY | 2022-07-06 07:21 | XMS_ITS | Encounter Summary ---
:1990 Author Organization [facility] Address [address] [place] [address] Care Team Providers Name Role Phone Elsewhere, Pcp Primary Care Provider Unavailable Reason for Visit Reason Comments Nasal Congestion pt presents concerned for po ssible sinus infection. c/o of facial pain, congestion, ear pain a nd throat pain. symptoms for approx one month. denies fevers. has be en taking mucinex Encounter Details Date Type Department Care Team Description 03/28/2019 Emergency [place] [facility] Valerie Malone, Infec kori Upper Department M.DMaribell Respiratory (Primary [address] Dx) [place] [phone] Social History Tobacco Use Types Packs/Day Years [...] do you attend yazidism or Never 2021 denominational services? Do you belong to any clubs or No 11/20/2021 organizations such as yazidism groups, unions, fraternal or athletic groups, or [...] Date Recorded Female 12/02/2021 5:19 PM CHEMICAL OPERATIONS SPECIALIST documented as of this encounter Last [...] Primary documented in this encounter Care Teams Hospice Administrator Relationship Specialty Start Date End Date Elsewhere, Pcp PCP - General Family Medicine 01/08/18 01/12/21 documented as of this encounter
--- OUTSIDE RECORDS SUMMARY | 2022-07-06 07:21 | XMS_ITS | Encounter Summary ---
:1990 Author Organization [facility] Address [address] [place] [address] Care Team Providers Name Role Phone Elsewhere, Pcp Primary Care Provider Unavailable Reason for Visit Reason Comments PAYAL has had symptoms for 3-4 we eks Muscle Pain chest and back -05/31, has been using ibuprofen Encounter Details Date Type Department Care Team Description 10/31/2018 Emergency [place] [facility] Valerie Malone, Infec kori Upper Department MMaribellDMaribell Respiratory (Primary [address] Dx) [place] [phone] Social History Tobacco Use Types Packs/Day Years [...] do you attend catholic or Never 2021 jew services? Do you [...] at Date Recorded Female 12/02/2021 5:19 PM VACUUM CLEANER MECHANIC documented as of this encounter Last Filed Vital Signs Vital Sign Reading Time Taken Comments Blood Pressure 134/95 10/31/2018 6:52 PM VACUUM CLEANER MECHANIC Pulse 81 10/31/2018 6:06 PM VACUUM CLEANER MECHANIC Temperature 37.2 ??C (99 ??F) 10/31/2018 6:52 PM VACUUM CLEANER MECHANIC Respiratory Rate 20 10/31/2018 6:06 PM VACUUM CLEANER MECHANIC Oxygen Saturation 98% 10/31/2018 6:06 PM VACUUM CLEANER MECHANIC Inhaled Oxygen Concentration - - Weight 73.3 kg (161 lb 9.6 oz) 10/31/2018 6:04 PM VACUUM CLEANER MECHANIC Height 152.4 cm (5') 10/31/2018 6:04 PM VACUUM CLEANER MECHANIC Body Mass Index 31.56 10/31/2018 6:04 PM VACUUM CLEANER MECHANIC documented in this encounter Discharge Instructions AttachmentsThe following attachments cannot be sent through Care Everywhere. Upper Respiratory Infection Adult Jrkt-bn-Ehuk (Setswana)documented in this encounter Medications at Time of [...] Upper Respiratory Valerie Malone M.D. 10/31/18 1840 UM CLEANER MECHANIC documented in this encounter Plan of Treatment Not on filedocumented as of this encounter Visit Diagnoses Diagnosis Infection Upper Respiratory - Primary documented in this encounter Care Teams School Speech Therapist Relationship Specialty Start Date End Date Elsewhere, Pcp PCP - General Family Medicine 01/08/18 01/12/21 documented as of this encounter
--- OUTSIDE RECORDS SUMMARY | 2022-07-06 07:21 | XMS_ITS | Encounter Summary ---
:1990 Author Organization [facility] Address [address] [place] [address] Care Team Providers Name Role Phone Elsewhere, Pcp Primary Care Provider Unavailable Reason for Visit Reason Comments Follow-up Outpatient (Routine) - Closed Specialty Diagnoses / Procedures Referred By Contact Refer red To Contact Family Medicine Ben Arce M.D. [facility] Region [address] [place] [address] Referral ID Status Reason Start Date Expiration Date Visits Requ ested Visits Authorized [id number] Closed 01/28/2019 01/28/2020 1 1 Encounter Details Date Type Department Care Team Description 02/11/2019 Office Visit Department of Ben Metzger M.D. Thrombosis Superficial Medicine in [facility] [address] Vein Lower Extremity [place], [place] Left (Primary Dx) [address] [place] [place] [address] [place], [place] [phone] (Work) [phone] Social History Tobacco Use Types Packs/Day Years [...] do you attend jewish or Never 2021 voodoo services? Do you [...] Date Recorded Female 12/02/2021 5:19 PM FINANCIAL ACCOUNTING ANALYST documented as of this encounter Last [...] documented in this encounter Care Teams Process Operator Relationship Specialty Start Date End Date Elsewhere, Pcp PCP - General Family Medicine 01/08/18 01/12/21 documented as of this encounter
--- OUTSIDE RECORDS SUMMARY | 2022-07-06 07:21 | XMS_ITS | Encounter Summary ---
:1990 Author Organization [facility] Address [address] [place] [address] Care Team Providers Name Role Phone Elsewhere, Pcp Primary Care Provider Unavailable Encounter Details Date Type Department Care Team Description 01/28/2019 Hospital Encounter Department of Radiology Ben Arce M.D. Edema Leg in [place], [place] [address] [place] [phone] Social History Tobacco Use Types Packs/Day Years [...] at Date Recorded Female 12/02/2021 5:19 PM SKIP TRACER documented as of this encounter Medications at [...] Leg documented in this encounter Care Teams Face Boss Relationship Specialty Start Date End Date Elsewhere, Pcp PCP - General Family Medicine 01/08/18 01/12/21 documented as of this encounter
--- OUTSIDE RECORDS SUMMARY | 2022-07-06 07:21 | XMS_ITS | Encounter Summary ---
:1990 Author Organization [facility] Address [address] [place] [address] Care Team Providers Name Role Phone Elsewhere, Pcp Primary Care Provider Unavailable Reason for Visit Reason Comments Sinus Symptoms 3 wks ago; started with ST, then ears and facial pressure. Pt using NetiPot. Sore Throat strep exposure at work Encounter Details Date Type Department Care Team Description 05/08/2018 Office Visit [facility] in [facility] Arely Ferrell Sinu sitis [place], [place] ART CONSULTANT, C.N.P. (Primary Dx) [address] [place] [phone] Social History Tobacco Use Types Packs/Day Years [...] do you attend faith or Never 2021 spiritism services? Do you [...] Date Recorded Female 12/02/2021 5:19 PM STRUCTURAL LAYOUT WORKER documented as of this encounter Last [...] care provider none identified. Recently moved to [place]. REVIEW OF SYSTEMS Constitutional: Negative for fever. [...] Primary documented in this encounter Care Teams Chain Forming Machine Operator Relationship Specialty Start Date End Date Elsewhere, Pcp PCP - General Family Medicine 01/08/18 01/12/21 documented as of this encounter
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
--- OUTSIDE RECORDS SUMMARY | 2022-07-06 07:21 | XMS_ITS | Encounter Summary ---
:1990 Author Organization [facility] Address [address] [place] [address] Care Team Providers Name Role Phone Elsewhere, Pcp Primary Care Provider Unavailable Reason for Visit Reason Comments Sinus Symptoms ST, Cipriano ear pressure, conges tion; 3.5 wks ago Encounter Details Date Type Department Care Team Description 06/27/2019 Office Visit [facility] [place], [place] [address], [address] [place] [address] [phone] (Wo rk) Social History Tobacco Use Types [...] do you attend sikhism or Never 2021 christianity services? Do you [...] at Date Recorded Female 12/02/2021 5:19 PM TEMPER MILL OPERATOR documented as of this encounter Last [...] Primary documented in this encounter Care Teams Editor Book Relationship Specialty Start Date End Date Elsewhere, Pcp PCP - General Family Medicine 01/08/18 01/12/21 documented as of this encounter
== END 2022-07-06 07:14 | disposition home or self-care (01) ==
PROVIDERS: Visit Provider Obstetrics & Gynecology
DX: O13.9 Gestational [pregnancy-induced] hypertension without significant proteinuria, unspecified trimester (principal)
CPT/HCPCS: 76819

== ENCOUNTER 2022-07-14 08:14 | Outpatient (CLI) | payer MEDICAID, SELFPAY ==
--- NOTE | 2022-07-14 08:15 | CRLHL7_ITS ---
For Patients: As a result of the Century Cures Act, medical imaging exams and procedure reports are released immediately into your electronic medical record. You may view this report before your referring provider. If you have questions, please contact your health care provider. INDICATION: Hypertension, gestational diabetes COMPARISON: 07/06/2022 TECHNIQUE: Real time norton scale imaging of the fetus was performed. Without non-stress testing. FINDINGS: Sonographic imaging demonstrates a single living intrauterine gestation. Fetus demonstrates a regular cardiac rate of 147 beats per minute. Fetus has a breech position. The amniotic fluid volume appears normal and there is a single deepest pocket measurement of 4.6 cm. The fetus was active and demonstrated normal breathing movements. There was normal flexion and extension of the trunk and extremities. IMPRESSION: Normal biophysical profile score of 8 out of 8. Dictated by Pawel Sanchez MD @ 07/14/2022 8:53:04 AM (Electronically Signed)
--- OUTSIDE RECORDS SUMMARY | 2022-07-14 08:17 | XMS_ITS | Encounter Summary ---
:1990 Author Organization [facility] Address [address], [place] [address] Care Team Providers Name Role Phone Heydi Santana PA-C Primary Care Provider [phone] Reason for Referral Consult/Transfer Care (Routine) - New Request Specialty Diagnoses / Procedures Referred By Contact Refer red To Contact Diagnoses Gestational diabetes mellitus (GDM), antepartum, gestational diabetes method of control unspecified Celina Deleon PA-C [address] [place], [place] [address] Referral ID Status Reason Start Date Expiration Date Visits V isits Requested Authorized [id number] New Request 06/16/2022 09/15/2023 1 1 Scheduling Instructions Your provider has recommended an appoint ment with [facility]. You may call [phone] to schedule yo ur appointment. We suggest you call your health insurance company about your cove rage and benefits for this appointment. Encounter Details Date Type Department Care Team Description 06/16/2022 Notes/Orders [facility] [address] Celina Deleon PA-C Gestational diabetes Endocrinology [address] mellitus (GDM), [address]partum, [address] [place], [place] [address] method of control [id number] unspecified (Primary [phone] Dx) Social History Tobacco Use Types Packs/Day Years Used Date Smoking Tobacco: Never Alcohol Use Standard Drinks/Week Comments No 0 (1 standard drink = 0.6 oz pure alcoho l) Sex Assigned at Date Recorded Not on file documented as of this encounter Progress Notes Ambika Moreira - 06/16/2022 10:21 AM CDT Kuldeep Patrick, [...] documented in this encounter Care Teams Manager Financial Systems Relationship Specialty Start Date End Date Heydi Santana PA-C PCP - General 11/14/10 [address] [place] [address] documented as of this encounter
--- OUTSIDE RECORDS SUMMARY | 2022-07-14 08:17 | XMS_ITS | Encounter Summary ---
:1990 Author Organization [facility] Address [address] [place] [address] Care Team Providers Name Role Phone Heydi Santana PA-C Primary Care Provider [phone] Encounter Details Date Type Department Care Team Description 09/22/2003 PN Conversion Only [place] [facility] Ayaan Osorio [facility] [address] [facility] [address] [facility] [address] [place] [address] [phone] Social History Tobacco Use Types Packs/Day Years Used Date Smoking Tobacco: Never Assessed Sex Assigned at Date Recorded Not on file documented as of this encounter Progress Notes Maryana Osorio - 09/22/2003 12:01 AM CST Progress Notes signed by Maryana Osorio MD at 09/23/03 0756 Author: Maryana Osorio MD Service: (none) Author Type: Physician Filed: 02/09/11 1721 Note Time: 09/22/03 0001 Status: Signed Human Machine Interface Engineer: Maryana Osorio MD (Physician) NAME: DILLAN MATA MR: [id number] ACCT: [id number] VISIT: [id number] DICTATING CLINICIAN: MARYANA OSORIO MD JOB: [id number] CLINIC PROGRESS NOTE DATE OF VISIT: 09/22/2003 [...] needed and follow up p.r.n. TT: CT: [id number] C: 09/23/03 05:53 DOCUMENT: [id number] Patito Craig - 02/19/2002 12:01 AM CDT Progress Notes signed by Patito Jorge APRN, PAINTER DECORATOR at 03/11/02 1009 Author: HÉCTOR Martin Service: (none) Author Type: Nurse Practitioner Filed: 02/09/11 0554 Note Time: 02/19/02 0001 Status: Signed Human Machine Interface Engineer: HÉCTOR Martin (Nurse Practitioner) IMPRESSION: URI. SUBJECTIVE: [...] symptomatic treatment. Follow up p.r.n. TT: CT: [id number] C: DOCUMENT: [id number] Maryana Osorio - 12/23/1998 12:01 AM CST Progress Notes signed by Maryana Osorio MD at 01/04/99 1608 Author: Maryana Osorio MD Service: (none) Author Type: Physician Filed: 02/08/11 0924 Note Time: 12/23/98 0001 Status: Signed Human Machine Interface Engineer: Maryana Osorio MD (Physician) IMPRESSION: Upper respiratory [...] put on Trimox 250 chewables t.i.d. stg KE COORDINATOR Maryana Osorio - 12/10/1997 12:01 AM CST Progress Notes signed by Maryana Osorio MD at 12/17/972053 Author: Maryana Osorio MD Service: (none) Author Type: Physician Filed: 02/08/116 Note Time: 12/10/97 0001 Status: Signed Human Machine Interface Engineer: Maryana Osorio MD (Physician) IMPRESSION: Serous otitis [...] days and will followup here pemi carey KE COORDINATOR Theodore Garcia MD - 03/02/1997 12:01 AM CDT Progress Notes signed by Theodore Garcia MD at 03/18/97 6749 Author: Theodore Garcia MD Service: (none) Author Type: Physician Filed: 02/07/11 8498 Note Time: 03/02/97 0001 Status: Signed Human Machine Interface Engineer: Theodore Garcia MD (Physician) IMPRESSION: Right otitis [...] Discussed side effects. Recheck in two weeks. [facility] documented in this encounter Plan of Treatment Not on filedocumented as of this encounter Procedures Procedure Name Priority Date/Time Associated Diagnosis Comme nts XR FOOT RT 3+ VIEWS Routine 09/22/2003 3:12 PM Re sults for this INTAKE COORDINATOR procedure are i n the results section. STREP GROUP A Routine 02/19/2002 4:43 PM Results for this ANTIGEN TEST CDT procedure are i n the results section. BETA STREP FOLLOWUP Routine 02/19/2002 4:43 PM Re sults for this CDT procedure are i n the results section. documented in this encounter Results XR Foot Rt 3+ Views (09/22/2003 3:12 PM INTAKE COORDINATOR) Anatomical Region Laterality Modality Lower Extremity, Foot Other Specimen (Source) Anatomical Location Collection Method / Collectio n Time Received Time / Laterality Volume Narrative 09/22/2003 3:12 PM INTAKE COORDINATOR Findings: BN1 No radiographic evidence of bone [...] Laterality 02/19/2002 4:43 PM CDT Patito Jorge COMPUTER ARTIST, PAINTER DECORATOR LAB_1 Performing Organization Address City/State/ZIP Code Phon e Number HP CONVERSION Beta Strep Followup (02/19/2002 4:43 PM CDT) P athologist Signature Strep Screen SEE TEXT HP CONVERSION Comment: Patient: DILLAN MATA Rapid Strep Follow up Culture @ ? Collected: ?1642 Source: Throat ?Processed: ?1643 ? 14 Final Report ------ ?[id number] ??0735 No beta hemolytic Strep group A isolated . @ = Rapid F/U Cult Performed at ??[address], [place], [place] ?[address] Specimen (Source) Anatomical Collection Method Collection Time Re ceived Time Location / / Volume Laterality 02/19/2002 4:43 PM CDT Patito Jorge COMPUTER ARTIST, PAINTER DECORATOR LAB_1 Performing Organization Address City/State/ZIP Code Phon e Number HP CONVERSION documented in this encounter Visit Diagnoses Not on filedocumented in this encounter Care Teams Boilermaker Pipe Fitter Relationship Specialty Start Date End Date Heydi Santana PA-C PCP - General 11/14/10 [address] [place], [place] [address] documented as of this encounter
--- OUTSIDE RECORDS SUMMARY | 2022-07-14 08:17 | XMS_ITS | Encounter Summary ---
:1990 Author [facility] Address [address] [place] [address] Care Team Providers Name Role Phone Joel Anguiano MD Primary Care Provider Reason for Visit Reason Comments Ear Pain SORE THROAT, HEADACHE Encounter Details Date Type Department Care Team Description 03/11/2010 Office Visit [place] [facility] Benjamin Zuniga i, MD Acute Sinusitis, Unspecified (Primary Dx ); Medicine [address] Reactive Airway Disease [address] [place], [place] [address] [phone] Social History Tobacco Use Types Packs/Day Years [...] as needed for pain or acetaminophen 325 [id number] mg every four hours. To thin and wash out thick mucus and soothe inflamed nasal tissues use salt water (saline) nasal spray (such as Crowley). Two sprays each side, wait 20 to [...] designed for nasal irrigation - purchase from [employer] or [employer]) in a similar manner described above. This is the easiest and most comfortable method. Use saline nasal irrigation once a day to maintain health of the nasal passages, and two or more times a day for active treatment of symptoms. With a little practice, this technique becomes almost as quick and easy as brushing your teeth. ?? [address]. documented in this encounter Progress Notes Rox [...] asthma documented in this encounter Care Teams Newswriter Relationship Specialty Start Date End Date Joel Anguiano MD PCP - General 01/17/10 11/13/10 [address] [place] [address] documented as of this encounter
--- OUTSIDE RECORDS SUMMARY | 2022-07-14 08:17 | XMS_ITS | Encounter Summary ---
:1990 Author Organization [facility] Address [address], [place] [address] Care Team Providers Name Role Phone Heydi Santana Jaquelin RENNER Primary Care Provider [phone] Reason for Visit Reason Comments Test Request Encounter Details Date Type Department Care Team Description 03/12/2012 Office Visit Zack Quintanilla Misse d period (Primary Dx); Medicine , incidental [address] [facility] [address] [place] [address] [place] [phone] [address] Social History Tobacco Use Types Packs/Day [...] signed by Zack Yun MD at 03/13/12 0937 Author: Zack Yun MD Service: (none) Author Type: Physician Filed: 03/13/12 0926 Note Time: 03/12/12 140 Status: Signed Pocket Machine Operator: Zack Yun MD (Physician) NAME: DILLAN MATA MR#: [id number] CSN: [id number] AUTHENTICATING CLINICIAN: Zack Yun MD CONFIRM #: [id number] LOC: 3602 CLINIC PROGRESS NOTE DATE OF [...] return as needed. SJC:MEDPérez C: CONFIRM #: [id number] documented in this encounter Plan of Treatment Not on filedocumented as of this encounter Visit Diagnoses Diagnosis Missed period - Primary Irregular menstrual cycle , incidental state, incidental documented in this encounter Care Teams Per Diem Physical Therapist Relationship Specialty Start Date End Date Heydi Santana PA-C PCP - General 11/14/10 [address] [place] [address] documented as of this encounter
--- OUTSIDE RECORDS SUMMARY | 2022-07-14 08:17 | XMS_ITS | Encounter Summary ---
:1990 Author Organization [facility] Address [address] [address] Care Team Providers Name Role Phone MaxHeydi christensen Jaquelin RENNER Primary Care Provider [phone] Encounter Details Date Type Department Care Team Description 10/04/2004 [facility] Patito Castillo APRN, [address] [place] [address] [phone] [place], [place] [address] Social History Tobacco Use Types Packs/Day Years Used Date Smoking Tobacco: Never Assessed Sex Assigned at Date Recorded Not on file documented as of this encounter Progress Notes Patito Jorge - 10/04/2004 12:01 AM CST Progress Notes signed by Patito Jorge APRN, CHILD PSYCHOMETRIST at 10/04/04 1502 Author: HÉCTOR Martin Service: (none) Author Type: Nurse Practitioner Filed: 02/10/11 0201 Note Time: 10/04/04 0001 Status: Signed Quarry Manager: HÉCTOR Martin (Nurse Practitioner) Acute Clinic Visit [...] today on the Health Profile screen of [place] Chronic Medications: None: OBJECTIVE: Vital Signs: T: [...] ~Shorthand Note completed on: 10/04/2004 2:17 PM O MACHINE OPERATOR documented in this encounter Plan of Treatment Not on filedocumented as of this encounter Visit Diagnoses Not on filedocumented in this encounter Care Teams Haul Cane Brakeman Relationship Specialty Start Date End Date Heydi Santana PA-C PCP - General 11/14/10 [address] [place] [address] documented as of this encounter
--- OUTSIDE RECORDS SUMMARY | 2022-07-14 08:17 | XMS_ITS | Encounter Summary ---
:1990 Author Organization [facility] Address [address] [place] [address] Care Team Providers Name Role Phone Heydi Santana Jaquelin RENNER Primary Care Provider [phone] Encounter Details Date Type Department Care Team Description 03/26/2009 PN Conversion Only [place] [facility] Arturo Aguirre MD [address] [place] [address] [place] [address] (Wo rk) Social History Tobacco Use [...] 3:15 PM CDT) Analysis Performed At [facility] Time Signature Strep Group A Negative [...] Rapid Strep Follow up Culture ? Collected: ??[id number] ??1515 Source: Throat ?Processed: ??[id number] ??1515 ? 1B Final Report ------ ?[id number] ??0923 No beta hemolytic Strep group A isolated . Specimen (Source) Anatomical Collection Method Collection Time Re ceived Time Location / / Volume Laterality 03/26/2009 3:15 PM CDT Arturo Aguirre MD LAB_1 Performing Organization Address City/State/ZIP Code Phon e Number HP CONVERSION documented in this encounter Visit Diagnoses Not on filedocumented in this encounter Care Teams Sewer Line Repairer Relationship Specialty Start Date End Date Heydi Santana PA-C PCP - General 11/14/10 [address] [place], [place] [address] documented as of this encounter
--- OUTSIDE RECORDS SUMMARY | 2022-07-14 08:17 | XMS_ITS | Encounter Summary ---
:1990 Author Organization [employer] Address [address], [place] [address] Care Team Providers Name Role Phone Heydi Santana PA-C Primary Care Provider [phone] Reason for Visit Reason Comments FOLLOW-UP,DIABETES Encounter Details Date Type Department Care Team Description 06/22/2022 Telemedicine [facility] [address] PA-C Gestational diabetes Endocrinology [address] mellitus (GDM), [address] antepartum, Bl[place], [place] [address] method of control [id number] unspecified (Primary [phone] Dx) Social History Tobacco Use Types Packs/Day [...] from the original note were not included. [facility]: [address] [place] [address] [phone], Nurse Line: [phone] Gestational Diabetes Visit Note June 22, 2022 [...] Primary documented in this encounter Care Teams Clinical Provider Trainer Relationship Specialty Start Date End Date Heydi Santana PA-C PCP - General 11/14/10 [address] [place] [address] documented as of this encounter
--- OUTSIDE RECORDS SUMMARY | 2022-07-14 08:17 | XMS_ITS | Encounter Summary ---
:1990 Author Organization [facility] Address [address] [place] [address] Care Team Providers Name Role Phone Heydi Santana Jaquelin RENNER Primary Care Provider [phone] Encounter Details Date Type Department Care Team Description 11/17/2003 [facility] Soumya Sorenson MD [place] [address] [facility] [address] [place] [address] [phone] Social History Tobacco Use Types Packs/Day Years Used Date Smoking Tobacco: Never Assessed Sex Assigned at Date Recorded Not on file documented as of this encounter Progress Notes Soumya Sorenson MD - 11/17/2003 12:01 AM CST Progress Notes signed by Soumya Sorenson MD at 06/01/048 Author: Soumya Sorenson MD Service: (none) Author Type: Physician Filed: 02/09/11 1824 Note Time: 11/17/03 0001 Status: Signed Primary School Teacher: Soumya Sorenson MD (Physician) NAME: DILLAN MATA MR: [id number] ACCT: [id number] VISIT: [id number] DICTATING CLINICIAN: SOUMYA SORENSON MD JOB: [id number] CLINIC PROGRESS NOTE DATE OF VISIT: 11/17/2003 [...] Well-developed, well-nourished female in no acute distress. [id number] C: 12/01/03 11:11 DOCUMENT: [id number] documented in this encounter Plan of Treatment Not on filedocumented as of this encounter Visit Diagnoses Not on filedocumented in this encounter Care Teams Studio Potter Relationship Specialty Start Date End Date Heydi Santana PA-C PCP - General 11/14/10 [address] [place] [address] documented as of this encounter
--- OUTSIDE RECORDS SUMMARY | 2022-07-14 08:17 | XMS_ITS | Encounter Summary ---
:1990 Author [facility] Address [address] [address] Care Team Providers Name Role Phone Heydi Santana PA-C Primary Care Provider [phone] Encounter Details Date Type Department Care Team Description 12/07/2003 PN Conversion Only [place] CONVERSION [address] [facility] [place] [address] Social History Tobacco Use Types Packs/Day Years Used Date Smoking Tobacco: Never Assessed Sex Assigned at Date Recorded Not on file documented as of this encounter Plan of Treatment Not on filedocumented as of this encounter Visit Diagnoses Not on filedocumented in this encounter Care Teams Commercial Driver Relationship Specialty Start Date End Date Heydi Santana PA-C PCP - General 11/14/10 [address] [place], [place] [address] documented as of this encounter
--- OUTSIDE RECORDS SUMMARY | 2022-07-14 08:17 | XMS_ITS | Encounter Summary ---
:1990 Author Organization [employer] Address [address] [place] [address] Care Team Providers Name Role Phone MaxHeydi christensen Jaquelin RENNER Primary Care Provider [phone] Reason for Visit Reason Comments Sore Throat HEADACHE Encounter Details Date Type Department Care Team Description 05/25/2011 Office Visit [facility] Angelique Wilkinson MD Acute pharyngitis (Primary Dx); Practice [address] Reactive airway disease; [address] [place], [place] Sore throat [place], [place] [phone] Social History Tobacco Use Types Packs/Day Years [...] THROAT CULTURE ONLY (05/25/2011 2:07 PM CDT) Nitch Method Time Signature Grp A Culture Negative NEG [facility] Final Specimen Anatomical Collection Method Collection Time Receive d Time (Source) Location / / Volume Laterality 05/25/2011 2:07 PM 1 2:24 CDT PM CDT Angelique Wilkinson MD LAB_1 Performing Organization Address City/[facility] Phon e Number [facility] [phone] [facility] [address] [place] [phone] STREP GRP A, RAPID SCREEN (05/25/2011 2:07 PM CDT) Nitch Method Time Signature Grp A Rapid Negative NEG [facility] Screen Specimen Anatomical Collection Method Collection Time Receive d Time (Source) Location / / Volume Laterality 05/25/2011 2:07 PM 1 2:24 CDT PM CDT Angelique Wilkinson MD LAB_1 Performing Organization Address City/[facility] Phon e Number [employer] [phone] [facility] [address] [place] [phone] documented in this encounter Visit Diagnoses Diagnosis Acute pharyngitis - Primary Reactive airway disease (HRC) Unspecified asthma Sore throat Acute pharyngitis documented in this encounter Care Teams Strategic Partner Development Manager Relationship Specialty Start Date End Date Heydi Santana PA-C PCP - General 11/14/10 [address] [place] [address] documented as of this encounter
--- OUTSIDE RECORDS SUMMARY | 2022-07-14 08:17 | XMS_ITS | Encounter Summary ---
:1990 Author Organization [employer] [facility] Address [address] [place] [address] Care Team Providers Name Role Phone Joel Anguiano MD Primary Care Provider Reason for Visit Reason Comments CONTROL COUNSELING Encounter Details Date Type Department Care Team Description 09/27/2010 Office Visit [facility] Candy Perez control Practice AZURDO (Primary Dx) [address] [facility] [place], [place] [address] [phone] [place] [address] Social History Tobacco Use Types Packs/Day Years Used Date Smoking Tobacco: Never Alcohol Use Standard Drinks/Week Comments No 0 (1 standard drink = 0.6 oz pure alcoho l) Sex Assigned at Date Recorded Not on file documented as of this encounter Last Filed Vital Signs Vital Sign Reading Time Taken Comments Blood Pressure 110/82 09/27/2010 9:16 AM TOURIST INFORMATION ASSISTANT Pulse 76 09/27/2010 9:16 AM TOURIST INFORMATION ASSISTANT Temperature - - Respiratory Rate - - Oxygen Saturation - - Inhaled Oxygen Concentration - - Weight 62.1 kg (137 lb) 09/27/2010 9:16 AM TOURIST INFORMATION ASSISTANT Height - - Body Mass Index - [...] change/worsen, or do not improve as expected. IST INFORMATION ASSISTANT documented in this encounter Progress Notes Candy [...] Apply topically. Twice daily ??? Triamcinolone Acetonide, [id number], (TRIAMCINOLONE ACETONIDE EX) cream use as needed [...] together. Candy Perez PA-C 10:39 AM 09/27/2010 IST INFORMATION ASSISTANT documented in this encounter Plan of Treatment Not on filedocumented as of this encounter Procedures Procedure Name Priority Date/Time Associated Diagnosis Comme nts TEST Waiting 09/27/2010 9:39 AM control Result s for this (URINE) TOURIST INFORMATION ASSISTANT procedure are i n the results section. documented in this encounter Results TEST (URINE) (09/27/2010 9:39 AM TOURIST INFORMATION ASSISTANT) Component Value Ref Test Analysis Performed At [facility] Range Method Time Signature HCG, Urine Negative [facility] Negative = <25 mIU/ml If is suspected, suggest repeat in 48-72 hours or confirm results with a quantitative hCG test. Specimen Anatomical Collection Method Collection Time Receive d Time (Source) Location / / Volume Laterality Urine specimen 09/27/2010 9:39 AM 010 9:49 (specimen) TOURIST INFORMATION ASSISTANT AM TOURIST INFORMATION ASSISTANT Candy Perez PA-C LAB_1 Performing Organization Address City/State/ZIP Code Phon e Number [facility] [phone] [facility] [address] [phone] documented in this encounter Visit Diagnoses Diagnosis control - Primary Unspecified contraceptive management documented in this encounter Care Teams Training Project Manager Relationship Specialty Start Date End Date Joel Anguiano MD PCP - General 01/17/10 11/13/10 [address] [place] [address] documented as of this encounter
--- OUTSIDE RECORDS SUMMARY | 2022-07-14 08:17 | XMS_ITS | Encounter Summary ---
:1990 Author Organization [facility] Address [address] [place] [address] Care Team Providers Name Role Phone Joel Anguiano MD Primary Care Provider Reason for Visit Reason Comments SKIN PROBLEM MOLE under rt arm Encounter Details Date Type Department Care Team Description 06/30/2010 Office Visit [facility] Sheng Leblanc D ermatitis (Primary Dx); Medicine MD Gerardo [address] [place], [place] [address] [place], [place] [phone] Social History Tobacco Use Types Packs/Day Years [...] skin documented in this encounter Care Teams Pipe Setter Relationship Specialty Start Date End Date Joel Anguiano MD PCP - General 01/17/10 11/13/10 [address] [place] [address] documented as of this encounter
--- OUTSIDE RECORDS SUMMARY | 2022-07-14 08:17 | XMS_ITS | Encounter Summary ---
:1990 Author Organization [facility] Address [address] [place] [address] Care Team Providers Name Role Phone Unassigned, Provider Primary Care Provider Unavailable Reason for Visit Reason Comments EXAM,ROUTINE With glasses, no problems, l azy right eye Encounter Details Date Type Department Care Team Description 09/06/2009 Office Visit [facility] ConsoerYunior, Examination of Eyes and Visi on (Primary Dx); [address] [place] Refractive Amblyopia; [place], [place] [address] Monocular Exotropia; [phone] Myopia; Unspecified Ast igmatism Social History Tobacco Use Types Packs/Day Years Used Date Smoking Tobacco: Never Assessed Sex Assigned at Date Recorded Not on file documented as of this encounter Patient Instructions Patient InstructionsConsoerYunior - 09/06/2009 12:08 PM CST Thank you for choosing [facility] for your eye care needs. Many tests [...] the clinic in the future? Appointment Center: [phone] Eye Dept: [phone] Online Services: [email or web address] For after hours care, call the CareLine at [phone] or . We look forward to taking [...] lenses. Sometimes surgery is needed or desirable. MING INSPECTOR documented in this encounter Progress Notes Yunior Galicia - 09/06/2009 12:08 PM CST HPI Chief Complaint Patient presents with ??? EXAM,ROUTINE With glasses, no problems, lazy right eye History Reviewed Assessment Myopia Astigmatism Amblyopia Exotropia Plan Spectacle Prescription given Return to clinic in 1 year(s) for REE. Arvin Galicia, OD MING INSPECTOR documented in this encounter Plan of Treatment Not on filedocumented as of this encounter Visit Diagnoses Diagnosis Examination of eyes and vision - Primary Refractive amblyopia Monocular exotropia Myopia Astigmatism, unspecified documented in this encounter Care Teams Immigration Attorney Relationship Specialty Start Date End Date Unassigned, Provider PCP - General 08/17/09 01/16/[address] [place] [address] documented as of this encounter
--- OUTSIDE RECORDS SUMMARY | 2022-07-14 08:17 | XMS_ITS | Encounter Summary ---
:1990 Author Organization [employer] Address [address], [place] [address] Care Team Providers Name Role Phone Max, Heydi Hammer PA-C Primary Care Provider [phone] Reason for Visit Reason Comments APPOINTMENT REQUEST Referral for GDM Encounter Details Date Type Department Care Team Description 06/07/2022 Telephone [facility] 38[address] Nurse, [id number] End APPOINTMENT REQUEST Endocrinology [address] (Referral for GDM) [address] [place] [phone] Social History Tobacco Use Types Packs/Day Years [...] 11:58 AM CDT Faxed referral rec'd from [facility] for GDM, records sent to [facility] documented in this encounter Plan of Treatment Not on filedocumented as of this encounter Visit Diagnoses Not on filedocumented in this encounter Care Teams Flue Lining Dipper Relationship Specialty Start Date End Date Heydi Santana PA-C PCP - General 11/14/10 [address] [place] [address] documented as of this encounter
--- OUTSIDE RECORDS SUMMARY | 2022-07-14 08:17 | XMS_ITS | Encounter Summary ---
:1990 Author Organization [facility] Address [address] [address] Care Team Providers Name Role Phone Heydi Santana PA-C Primary Care Provider [phone] Encounter Details Date Type Department Care Team Description 03/26/2009 PN Conversion Only [place] [facility] [address] [place] [address] Social History Tobacco Use Types Packs/Day Years Used Date Smoking Tobacco: Never Assessed Sex Assigned at Date Recorded Not on file documented as of this encounter Plan of Treatment Not on filedocumented as of this encounter Visit Diagnoses Not on filedocumented in this encounter Care Teams Library Page Relationship Specialty Start Date End Date Heydi Santana PA-C PCP - General 11/14/10 [address] [place], [place] [address] documented as of this encounter
--- OUTSIDE RECORDS SUMMARY | 2022-07-14 08:17 | XMS_ITS | Encounter Summary ---
:1990 Author Organization [facility] Address [address], [place] [address] Care Team Providers Name Role Phone Heydi Santana PA-C Primary Care Provider [phone] Encounter Details Date Type Department Care Team Description 10/04/2004 PN Conversion Only [place] [facility] [address] [place] [address] Social History Tobacco Use Types Packs/Day Years Used Date Smoking Tobacco: Never Assessed Sex Assigned at Date Recorded Not on file documented as of this encounter Plan of Treatment Not on filedocumented as of this encounter Visit Diagnoses Not on filedocumented in this encounter Care Teams Net Application Support Specialist Relationship Specialty Start Date End Date Heydi Santana PA-C PCP - General 11/14/10 [address] [place], [place] [address] documented as of this encounter
--- OUTSIDE RECORDS SUMMARY | 2022-07-14 08:17 | XMS_ITS | Encounter Summary ---
:1990 Author Organization [facility] Address [address], [place] [address] Care Team Providers Name Role Phone Heydi Santana PA-C Primary Care Provider [phone] Encounter Details Date Type Department Care Team Description 11/02/2004 PN Conversion Only [facility] [id number] Social History Tobacco Use Types Packs/Day Years Used Date Smoking Tobacco: Never Assessed Sex Assigned at Date Recorded Not on file documented as of this encounter Plan of Treatment Not on filedocumented as of this encounter Visit Diagnoses Not on filedocumented in this encounter Care Teams Head Stock Transfer Clerk Relationship Specialty Start Date End Date Heydi Santana PA-C PCP - General 11/14/10 [address] [place] [address] documented as of this encounter
--- OUTSIDE RECORDS SUMMARY | 2022-07-14 08:17 | XMS_ITS | Encounter Summary ---
:1990 Author Organization [facility] Address [address] [place] [address] Care Team Providers Name Role Phone Heydi Santana Jaquelin RENNER Primary Care Provider [phone] Encounter Details Date Type Department Care Team Description 10/04/2004 PN Conversion Only [place] [facility] N Patito Jorge, [address] APRN, PRODUCTION GEAR CUTTER [address] [facility] [place] [address] [address] [place], [place] [address] Social History Tobacco Use Types Packs/Day Years Used Date Smoking Tobacco: Never Assessed Sex Assigned at Date Recorded Not on file documented as of this encounter Plan of Treatment Not on filedocumented as of this encounter Procedures Procedure Name Priority Date/Time Associated Diagnosis Comme nts STREP GROUP A Routine 10/04/2004 3:11 PM Results for this ANTIGEN TEST PREFORM PLATE MAKER procedure are i n the results section. BETA STREP FOLLOWUP Routine 10/04/2004 3:11 PM Re sults for this PREFORM PLATE MAKER procedure are i n the results section. documented in this encounter Results Strep Group A Antigen Test (10/04/2004 3:11 PM PREFORM PLATE MAKER) Analysis Performed At Patho logist Time Signature Strep Group A Negative Negative HP CONVERSION Antigen Test Comment: Culture to follow. Specimen (Source) Anatomical Collection Method Collection Time Re ceived Time Location / / Volume Laterality 10/04/2004 3:11 PM PREFORM PLATE MAKER Patito Jorge APRN, PRODUCTION GEAR CUTTER LAB_1 Performing Organization Address City/State/ZIP Code Phon e Number HP CONVERSION Beta Strep Followup (10/04/2004 3:11 PM PREFORM PLATE MAKER) P athologist Signature Strep Screen SEE TEXT HP CONVERSION Comment: Patient: DILLAN MATA Rapid Strep Follow up Culture @ ? Collected: ??[id number] ??[id number] Source: Throat ?Processed: ??[id number] ??[id number] Final Report ------ ?[id number] ??[id number] No beta hemolytic Strep group A isolated . @ = Rapid F/U Cult Performed at ??[address] [place] ?[address] Specimen (Source) Anatomical Collection Method Collection Time Re ceived Time Location / / Volume Laterality 10/04/2004 3:11 PM PREFORM PLATE MAKER Patito Jorge DIVORCE ATTORNEY, PRODUCTION GEAR CUTTER LAB_1 Performing Organization Address City/State/ZIP Code Phon e Number HP CONVERSION documented in this encounter Visit Diagnoses Not on filedocumented in this encounter Care Teams Computer Forensics Examiner Relationship Specialty Start Date End Date Heydi Santana PA-C PCP - General 11/14/10 [address] [place] [address] documented as of this encounter
--- OUTSIDE RECORDS SUMMARY | 2022-07-14 08:17 | XMS_ITS | Encounter Summary ---
:1990 Author Organization [employer] Address [address] [place] [address] Care Team Providers Name Role Phone Joel Anguiano MD Primary Care Provider Reason for Visit Reason Comments Sore Throat EARACHE left HEADACHE Encounter Details Date Type Department Care Team Description 10/05/2010 Office Visit [facility] Heydi Santana ( upper respiratory infection) (Primary Dx); Practice [facility] Hammer Sore throat; [address] Rhinitis; [place], [place] [address] [place], [place] TMJ disorder [phone] Social History Tobacco Use Types Packs/Day Years Used Date Smoking Tobacco: Never Alcohol Use Standard Drinks/Week Comments No 0 (1 standard drink = 0.6 oz pure alcoho l) Sex Assigned at Date Recorded Not on file documented as of this encounter Last Filed Vital Signs Vital Sign Reading Time Taken Comments Blood Pressure 116/74 10/05/2010 1:46 PM REHABILITATION MEDICINE PHYSICIAN Pulse 76 10/05/2010 1:46 PM REHABILITATION MEDICINE PHYSICIAN Temperature 37.1 ??C (98.7 ??F) 10/05/2010 1:46 PM REHABILITATION MEDICINE PHYSICIAN Respiratory Rate 16 10/05/2010 1:46 PM REHABILITATION MEDICINE PHYSICIAN Oxygen Saturation - - Inhaled Oxygen Concentration - - Weight 62 kg (136 lb 9.6 oz) 10/05/2010 1:46 PM REHABILITATION MEDICINE PHYSICIAN Height - - Body Mass Index - [...] Avoid any chewy candy/gum/tough meats to chew. Hyedi Santana PA-C BILITATION MEDICINE PHYSICIAN documented in this encounter Progress Notes Sita Barker RN - 10/06/2010 4:17 PM REHABILITATION MEDICINE PHYSICIAN Quick Note: Letter sent. Herminia Barker LPN Nurse for [facility] BILITATION MEDICINE PHYSICIAN Heydi Santana - 10/06/2010 8:32 AM REHABILITATION MEDICINE PHYSICIAN Quick Note: Neg cx Heydi Santana PA-C BILITATION MEDICINE PHYSICIAN Heydi Santana - 10/05/2010 2:17 PM REHABILITATION MEDICINE PHYSICIAN Quick Note: Reviewed neg strep with pt pending cx Heydi Santana PA-C BILITATION MEDICINE PHYSICIAN Heydi Santana - 10/05/2010 11:45 AM CST [...] to improve as anticipated. Heydi Santana PA-C BILITATION MEDICINE PHYSICIAN documented in this encounter Plan of Treatment Not on filedocumented as of this encounter Procedures Procedure Name Priority Date/Time Associated Diagnosis Comme nts STREP GRP A, RAPID Waiting 10/05/2010 1:52 PM Sore throat Res ults for this SCREEN REHABILITATION MEDICINE PHYSICIAN procedure are i n the results section. STREP GRP A, THROAT Routine 10/05/2010 1:52 PM Re sults for this CULTURE ONLY REHABILITATION MEDICINE PHYSICIAN procedure are i n the results section. documented in this encounter Results STREP GRP A, THROAT CULTURE ONLY (10/05/2010 1:52 PM REHABILITATION MEDICINE PHYSICIAN) [facility] Method Time Signature Grp A Culture Negative [facility] Final Specimen Anatomical Collection Method Collection Time Receive d Time (Source) Location / / Volume Laterality 10/05/2010 1:52 PM 0 2:05 REHABILITATION MEDICINE PHYSICIAN PM REHABILITATION MEDICINE PHYSICIAN Heydi Santana PA-C LAB_1 Performing Organization Address City/[facility]/ZIP Code Phon e Number [facility] [phone] [phone] STREP GRP A, RAPID SCREEN (10/05/2010 1:52 PM REHABILITATION MEDICINE PHYSICIAN) [facility] gist Method Time Signature Grp A Rapid Negative [facility] Screen Specimen Anatomical Collection Method Collection Time Receive d Time (Source) Location / / Volume Laterality 10/05/2010 1:52 PM 0 2:05 REHABILITATION MEDICINE PHYSICIAN PM REHABILITATION MEDICINE PHYSICIAN Heydi Santana PA-C LAB_1 Performing Organization Address [facility] Code Phon e Number [facility] [phone] [phone] documented in this encounter Visit Diagnoses Diagnosis URI (upper respiratory infection) - Prim prosper Acute upper respiratory infections of un specified site Sore throat Acute pharyngitis Rhinitis Chronic rhinitis TMJ disorder Temporomandibular joint disorders, unspe cified documented in this encounter Care Teams Senior Account Executive Relationship Specialty Start Date End Date Joel Anguiano MD PCP - General 01/17/10 11/13/10 [address] [place] [address] documented as of this encounter
--- OUTSIDE RECORDS SUMMARY | 2022-07-14 08:17 | XMS_ITS | Encounter Summary ---
:1990 Author Organization [employer] Address [address], [place] [address] Care Team Providers Name Role Phone Heydi Santana Jaquelin RENNER Primary Care Provider Encounter Details Date Type Department Care Team Description 03/26/2009 Office Visit [facility] Alison Aguirre MD Medicine [address] [place], [place] [phone] (Wo rk) Social History Tobacco Use Types [...] 1344 Note Time: 03/26/09 0001 Status: Signed Tobacco Stemmer Machine: Arturo Aguirre MD (Physician) Acute Clinic Visit [...] today on the Health Profile screen of [facility]. Chronic Medications: None. OBJECTIVE: Vital Signs: Vital Signs taken today were reviewed on the flowsheet in [facility]. General Appearance: Well-appearing Eyes: External exam is [...] on filedocumented in this encounter Care Teams Print Support Specialist Relationship Specialty Start Date End Date Heydi Santana PA-C PCP - General 11/14/10 [address] [place] [address] documented as of this encounter
--- OUTSIDE RECORDS SUMMARY | 2022-07-14 08:17 | XMS_ITS | Encounter Summary ---
:1990 Author Organization [facility] Address [address], [place] [address] Care Team Providers Name Role Phone Heydi Santana PA-C Primary Care Provider [phone] Encounter Details Date Type Department Care Team Description 02/20/2011 PN Conversion Only [place] [facility] Jose Carlos Aguirre MD [facility] [address] [facility] [address] [facility] [address] [place], [place] [address] [place], [place] [phone] (Wo rk) Social History Tobacco Use Types Packs/Day Years Used Date Smoking Tobacco: Never Alcohol Use Standard Drinks/Week Comments No 0 (1 standard drink = 0.6 oz pure alcoho l) Sex Assigned at Date Recorded Not on file documented as of this encounter Plan of Treatment Not on filedocumented as of this encounter Visit Diagnoses Not on filedocumented in this encounter Care Teams Marketing Assistant Retail Division Relationship Specialty Start Date End Date Heydi Santana PA-C PCP - General 11/14/10 [address] [place], [place] [address] documented as of this encounter
--- OUTSIDE RECORDS SUMMARY | 2022-07-14 08:17 | XMS_ITS | Encounter Summary ---
:1990 Author Organization [employer] Address [address], [place] [address] Care Team Providers Name Role Phone Unassigned, Provider Primary Care Provider Unavailable Reason for Visit Reason Comments SORE THROAT, cough, chest cold Encounter Details Date Type Department Care Team Description 10/19/2009 Office Visit Urgent [facility] axillary Sinusitis (Primary Dx); [place] Acute Pharyngitis [address] [place], [place] [address] Social History Tobacco Use Types Packs/Day Years Used Date Smoking Tobacco: Never Assessed Sex Assigned at Date Recorded Not on file documented as of this encounter Last Filed Vital Signs Vital Sign Reading Time Taken Comments Blood Pressure 144/96 10/19/2009 7:00 PM CORE JAVA ENGINEER Pulse 78 10/19/2009 7:00 PM CORE JAVA ENGINEER Temperature 37.2 ??C (98.9 ??F) 10/19/2009 7:00 PM CORE JAVA ENGINEER Respiratory Rate 18 10/19/2009 7:00 PM CORE JAVA ENGINEER Oxygen Saturation - - Inhaled Oxygen Concentration - - Weight 64.6 kg (142 lb 6 oz) 10/19/2009 7:00 PM CORE JAVA ENGINEER Height - - Body Mass Index - - documented in this encounter Patient Instructions Patient InstructionsRyan Townsend - 10/19/2009 8:00 PM CST HP Sinusitis sheet given, emphasized saline rinses. Neti pot info and discussion given. JAVA ENGINEER documented in this encounter Progress Notes Xochilt Enriquez RN - 10/21/2009 6:14 PM CORE JAVA ENGINEER Quick Note: Strep culture results noted: Negative Nita Enriquez RN JAVA ENGINEER Ryan Townsend - 10/19/2009 7:28 PM CST [...] to improve as anticipated. Ryan Townsend MD JAVA ENGINEER documented in this encounter Plan of Treatment Not on filedocumented as of this encounter Procedures Procedure Name Priority Date/Time Associated Diagnosis Comme nts STREP GRP A, RAPID Waiting 10/19/2009 7:18 PM Acute Pharyngiti s Results for this SCREEN CORE JAVA ENGINEER procedure are i n the results section. STREP GRP A, THROAT Routine 10/19/2009 7:18 PM Acute Pharyngit is Results for this CULTURE ONLY CORE JAVA ENGINEER procedure are i n the results section. documented in this encounter Results STREP GRP A, THROAT CULTURE ONLY (10/19/2009 7:18 PM CORE JAVA ENGINEER) Patholo gist Method Time Signature Grp A Culture Negative NEG [facility] Final Specimen Anatomical Collection Method Collection Time Receive d Time (Source) Location / / Volume Laterality 10/19/2009 7:18 PM 9 7:22 CORE JAVA ENGINEER PM CORE JAVA ENGINEER Ryan Townsend MD LAB_1 Performing Organization Address [facility]/ZIP [facility] Phon e Number [facility] [phone] [facility] [address] [phone] STREP GRP A, RAPID SCREEN (10/19/2009 7:18 PM CORE JAVA ENGINEER) [facility] gist Method Time Signature Grp A Rapid Negative [facility] Screen Specimen Anatomical Collection Method Collection Time Receive d Time (Source) Location / / Volume Laterality 10/19/2009 7:18 PM 9 7:22 CORE JAVA ENGINEER PM CORE JAVA ENGINEER Ryan Townsend MD LAB_1 Performing Organization Address [facility] Phon e Number [facility] [phone] [phone] documented in this encounter Visit Diagnoses Diagnosis Acute maxillary sinusitis - Primary Acute pharyngitis documented in this encounter Care Teams Blanket Cutting Machine Operator Relationship Specialty Start Date End Date Unassigned, Provider PCP - General 08/17/09 01/16/[address] [place] [address] documented as of this encounter
--- OUTSIDE RECORDS SUMMARY | 2022-07-14 08:17 | XMS_ITS | Clinical Summary ---
:[address] [facility] Address [address] [place] [address] Care Team Providers Name Role Phone Ben Arce M.D. Primary Care Provider Source Comments Patient records contain information from all sites at [facility]. For routine questions regarding patient records, call [phone] during business hours, M-F 8:00 AM - 5:00 PM Central Time. Record requests for emergency care only can be directed to [phone] at any time.[facility] Allergies Active Allergy Reactions Severity Noted Date Comments Midway Pollen Itching, Wheezing 04/17/2022 Medications Medication Sig Dispensed Refills Start Date End Date Status acetaminophen Take 1,000 mg 0 Ac tive (TYLENOL) 500 mg by mouth tablet every 6 (six) hours as needed for pain. Take 1 tablet 90 tablet 3 12/01/2021 Activ e vit27,calcium/iron/F by mouth A daily. (multivitamin/minera l-) tablet calcium Take 1 tablet 0 Active carbonate-vitamin D3 by mouth 625 mg (250 mg daily with calcium)-3.125 mcg breakfast. (125 Unit) per tablet breast pump device 1 each Cyclic 1 each 0 03/01/20222022 Active PN - see admin instructions. aspirin 81 mg Chew 81 mg 0 Activ e chewable tablet daily. omeprazole Take by mouth 0 05/01/2022 Acti ve (PriLOSEC) [address] daily. capsule metFORMIN XR Take 500 mg 0 06/06/2022 Acti ve (GLUCOPHAGE-XR) 500 by mouth mg 24 hr tablet every evening. Microlet Lancet USE TO TEST 0 06/17/2022 A ctive BLOOD SUGAR FOUR TIMES DAILY. Contour Next EZ See Admin 0 05/26/2022 Act macie Meter misc Instructions. Contour Next Test USE TO TEST 0 06/17/2022 Active Strips strips BLOOD SUGER FOUR TIMES DAILY. blood pressure test See Admin 0 05/01/2022 Active kit-large kit Instructions. amoxicillin-pot Take 1 tablet 10 tablet 0 07/09/2022 2 Active clavulanate by mouth 2 (Augmentin) 875-125 (two) times a mg per day for 5 tabletIndications: days. Sinusitis Acute famotidine (PEPCID) Take 1 tablet 30 tablet 3 03/01/202207/09 Discontinued 40 mg tablet (40 mg total) by mouth 2 (two) times a day. Active Problems Problem Noted Date Encounter For [...] COVID complete but needs b ooster/Flu declines Gas Pump Attendant: Pap NIL w/ neg HPV 11/2021 Aneuploidy screening/Carrier Screening: declines Preeclampsia prevention: aspirin to star t at 12 weeks FAS: Normal, posterior placenta, EFW 92n d%ile 28 week labs: TDAP /Rhogam not indicated GBS Growth Ultrasounds: surveillance: Presentation (36 weeks): Del planning: PPBC: Problems: 1. Hx preeclampsia: on baby aspirin. Matt lin preTova labs ordered 2. Hx GDM: Early A1C 5.2 3. Possible macrosomia: EFW 92nd%ile on FAS. Will plan on growth US in third trimester Note on 03/27 she told me she is transferr ing to [place] because it is closer. History Of Falling [...] Encounters Date Type Specialty Care Team Description 07/12/2022 Hospital Encounter Labor and Delivery Rylie Mcdowell De creased M.D. Movements Third Trimester Singl e Gestation (HCC) [O36.8130 (ICD-10-CM)] (P rimary Dx) 07/09/2022 Office Visit Express or Urgent [facility], Sinusitis Acute Care FATOU Santana, (Primary Dx) C.N.P., D.N.P. 06/12/2022 Hospital Encounter Labor and Delivery Rylie Mcdowell M.D. 04/28/2022 Hospital Encounter Labor and Delivery Rylie Mcdowell, En counter For M.D. Supervision Of Normal Unspe cified Trimester (HCC) 04/18/2022 Routine Obstetrics and Rylie Mcdowell, 23 Weeks Gestation Gynecology M.D. (HCC) (Primary Dx) 04/17/2022 Hospital Encounter Labor and Delivery Rylie Mcdowell, 23 Weeks Gestation M.D. (HCC) from Last 3 Months Immunizations Name Administration Dates Next Due DTP 02/03/1992, 08/05/1991, 03/18/1991, 1989, 1989, 1989 DTaP (Daptacel) 02/03/1992, 08/05/1991, 03/18/1991, 1989, 1989, 1989 DTaP (Infanrix, Tripedia) 02/03/1992, 08/05/1991, 03/18/1991 , 1989, 1989, 1989 HepB Adult 02/22/2001, 12/07/2000, 10/03/2000 HepB Pediatric/Adolescent 02/22/2001, 12/07/2000, 10/03/2000 HepB, Unspecified 02/22/2001, 12/07/2000, 10/03/2000 IPV 02/03/1992, 03/18/1991, 1989, 1989, 1989 Influenza TIV (IM) 07/10/2012, 09/08/2003 Influenza, Seasonal, Injectable 07/10/2012 Influenza, Unspecified 12/16/2020 (Deferred: Patient Refused - pt states gets sick from flu vaccination), 09/08/2003 MMR 12/07/2000 Polio, Unspecified 02/03/1992, 02/03/1992, 03/18/1991, 03/18/1991, 1989, 1989, 1989, 1989, 1989, 1989 Td (Adult), adsorbed 10/03/2000 Tdap 06/02/2022, 09/03/2012 influenza vaccine quad 12/16/2020, 07/10/2012, 09/08/2003 (FLUZONE/FLUARIX) (6 months and older)(PF) Family History Medical History Relation Name Comments [...] do you attend sikhism or Never 2021 congregational services? Do you [...] at Date Recorded Female 12/02/2021 5:19 PM LISW Last Filed Vital Signs Vital Sign Reading Time Taken Comments Blood Pressure 135/94 07/09/2022 8:58 AM CDT Pulse 97 07/09/2022 8:58 AM CDT Temperature 36.7 ??C (98.1 ??F) 07/09/2022 8:58 AM CDT Respiratory Rate 16 06/12/2022 11:12 AM CDT Oxygen Saturation 98% 07/09/2022 8:58 AM CDT Inhaled Oxygen Concentration - - Weight 72 kg (158 lb 12.8 oz) 04/18/2022 2:27 PM CDT Height 152.4 cm (5') 04/28/2022 10:11 AM CDT Body Mass Index 31.01 04/18/2022 2:27 PM CDT Plan of Treatment Health Maintenance Due Date Last Done Comments Hepatitis C Screening 1990 COVID-19 Vaccine (3 - 08/13/2021 06/18/2021, 05/18/2021 Booster for Pfizer series) Influenza Vaccine (#1) 2022 12/16/2020, 07/10/2012, 07/10/2012, Additional history exists Office Visit for Blood 10/08/2022 07/09/2022 Pressure Check / Re-check Cervical Cancer Screening 11/24/2026 11/24/2021, 11/24/2021 , [...] this topic Medical Devices Implanted Type Area Slurry Tank Tender Device Shelf Model / Identifier Expiration Serial / Date Lot Gynecologic Gynecologic Left: Other Other Arm Procedures Procedure Name Priority Date/Time Associated Comments Diagnosis URINALYSIS WITH Timed 07/12/2022 6:46 PM Result s for this MICROSCOPIC CDT procedure are i n the results section. GLUCOSE POCT, B Routine 06/12/2022 10:50 Results [...] results section. from Last 3 Months Results (ABNORMAL) Urinalysis with Microscopic: Urine, Midstream (07/12/2022 6:46 PM CDT)Only the most recent of2 resultswithin the time period is included. Analysis Performed At [facility] Time Signature Source Urine, Urine, 07/12/2022 NPRG Midstream 6:55 PM CDT Clarity Clear Clear 07/12/2022 [facility] 7:04 PM CDT Color Yellow 07/12/2022 NPRG 7:04 PM CDT Comment: ----REFERENCE VALUE---- Colorless Yellow Ronda Blood Negative Negative 07/12/2022 7:04 PM CDT NPRG Nitrite Negative Negative 07/12/2022 7:04 PM CDT NPRG Leukocyte Esterase Negative Negative 07/12/2022 7:04 PM CD T NPRG Protein Negative mg/dL 07/12/2022 7:04 PM CDT NPRG Comment: ----REFERENCE VALUE---- Negative Trace Glucose Negative Negative mg/dL 07/12/2022 7:04 PM CDT MANAGER PROPOSAL RG Ketones, QI(U) Negative Negative mg/dL 07/12/2022 7:04 PM C DT NPRG Bilirubin Negative Negative 07/12/2022 7:04 PM CDT NPRG pH 6.0 5.0 - 8.0 07/12/2022 7:04 PM CDT NPRG Specific [place] >=1.030 1.001 - 1.035 07/12/2022 7:04 PM CDT NPRG Urobilinogen 0.2 0.2 - 1.0 mg/dL 07/12/2022 7:04 PM CD T NPRG White Blood Cells Occ-3 /hpf 07/12/2022 7:04 PM CDT NPRG Comment: ----REFERENCE VALUE---- Males: 0-3 Females: 0-10 Unknown: 0-10 Red Blood Cells Occ-2 0 - 2 /hpf 07/12/2022 7:04 PM CDT NPRG Dysmorphic Red Blood Cells <=25 <=25 % 07/12/2022 7: 04 PM CDT NPRG Squamous Cells 11-20 /hpf 07/12/2022 7:04 PM CDT MANAGER PROPOSAL RG Bacteria Present (A) None Seen 07/12/2022 7:04 PM CDT NPRG Specimen Anatomical Collection Method Collection Time Receive d Time (Source) Location / / Volume Laterality Urine (Urine, 07/12/2022 6:46 PM 07/12/20 6:55 Midstream) CDT PM CDT Rylie Mcdowell M.D. LAB URINE ORDERABLES Performing Organization Address City/[facility] Code Phon e Number [place] [phone] LAB [facility] [place] [address] [place] [address] [address] [facility] Glucose, POCT (06/12/2022 10:50 AM CDT) P athologist Signature Glucose, POCT, 87 70 - 140 06/12/2022 NPRG B mg/dL 10:50 AM CDT Specimen Anatomical Collection Method Collection Time Receive d Time (Source) Location / / Volume Laterality Blood 06/12/2022 10:50 06/12/2022 AM CDT 10:57 AM CDT Generic Rals LAB POCT ORDERABLES-MANUAL Performing Organization Address City/[facility]/ZIP [facility] Phon e Number [place] [phone] [address] [place] [address] [address] [place] [address] Influenza A/B, SARS CoV-2, PCR, Rapid, Varies (04/28/2022 8:48 AM CDT) [facility] Method Time Signature Influenza A, Negative Negative 04/28/2022 NPRG PCR, Rapid, V 9:26 AM CDT Influenza B, Negative Negative 04/28/2022 NPRG PCR, Rapid, V 9:26 AM CDT SARS CoV-2, Undetected Undetected 04/28/2022 NPRG PCR, Rapid, V 9:26 AM CDT Comment: ----ADDITIONAL INFORMATION---- This RT-PCR test was performed using the Carissa SARS-CoV-2 and Influenza A/B Reagent assay from [employer], which has received Emergency Use Authori zation(EUA) by the U.S. Food and Drug Administration . Fact sheets for this Emergency Use Autho rization (EUA) assay can be found at the following link s: For Healthcare Providers: https://www.fda.gov/media/637121/downloa d For Patients: https://www.fda.gov/media/922019/downloa d Infl A/B, SARS CoV-2, PCR, Source Swab, Nasopharynx 04/28/2022 9:02 AM CDT NPRG Specimen Anatomical Collection Method Collection Time Receive d Time (Source) Location / / Volume Laterality Varies 04/28/2022 8:48 AM 9:02 CDT AM CDT Rylie Mcdowell M.D. LAB MICROBIOLOGY - GENERAL O RDERABLES Performing Organization Address City/State/ZIP Code Phon e Number [facility] [address] [place] [address] [address] [place] [address] from Last 3 Months Insurance Payer Benefit Plan / Subscriber ID Effective Phone Address T ype Group Dates EMPLOYERS EMPLOYERS [id number] 2019-Pres [phone] n[address] INSURANCE INSURANCE ent [id number] [place] [address] UCARE UCARE [id number] 2022-Pres [phone] [address] HMO ent [address] [place] [address] Marsha Mataie Workers Comp Self [address] (Home) [place] [address] Marsha Mataie Third Libertarian Self [address] (Home) [place] [address] Care Teams Valver Relationship Specialty Start Date End Date Ben Arce M.D. PCP - General Family Medicine 01/13/[address] [place] [phone]
--- OUTSIDE RECORDS SUMMARY | 2022-07-14 08:17 | XMS_ITS | Encounter Summary ---
:1990 Author Organization [employer] Address [address], [place] [address] Care Team Providers Name Role Phone Max Heydi Hammer PA-C Primary Care Provider [phone] Reason for Visit Reason Comments DIABETES,GESTATIONAL Encounter Details Date Type Department Care Team Description 07/14/2022 Telemedicine IDC ADULT DIAB SVCS Yahaira Arrieta Ge stational diabetes MEL Garcia RDN, LD, CDCES mellitus (GDM), [address] [place] [address] antepartum, [place] [address] [address] gestational diabetes [phone] [place], [place] method of control [id number] unspecified (Primary [phone] (Wo rk) Dx) Social History Tobacco Use Types Packs/Day Years Used Date Smoking Tobacco: Never Alcohol Use Standard Drinks/Week Comments Not Currently 0 (1 standard drink = 0.6 oz pure alcoho l) Sex Assigned at Date Recorded Not on file documented as of this encounter Progress Notes Yahaira Arrieta RDN, LD, CDCES - 07/14/2022 7:30 AM CDT Subjective: Visit: 3 wk GDM What is the most important concern you want to discuss today? No specific questions or concerns. Current Diabetes Treatment Regimen: Metformin XR: 500 mg with dinner Nutrition changes since last IDC visit: Reports she is more hungry recently. Had a sinus infection which is now improving so she is able to eat again. Objective: Wt Readings from Last 3 Encounters: 06/22/22 151 lb (68.5 kg) 03/12/12 144 lb (65.3 kg) 05/25/11 142 lb 3.2 oz (64.5 kg) Gestational Age: 35 weeks, 5 days (per patient report) This is an individual appointment. No group available within needed timeframe. Reviewed recent glucose results: Date Pre Morning Meal Post Morning Meal Post Midday Meal Post Evening Meal 07/07 93 125 138 89 07/08 91 115 85 139 07/09 95 Ate ice cream 125 123 124 07/10 84 132 117 110 07/11 84 89 90 99 07/12 79 82 114 121 07/13 82 111 141 Sinus infection improving Ate more 111 07/14 87 Post-prandial values are 1 hour post meal. Lab results related to diabetes have been reviewed. Assessment and Plan: Reviewed blood glucose records. All fasting glucose in target, except 1 value which was explainable by having ice cream the night before. All post-prandial glucose in target, except 1 value which was explainable by portion sizes. Reviewed Session #3 material from Gestational Diabetes BASICS book. Encouraged patient to speak to provider regarding her metformin and if/when she will stop it as she reports she was not on metformin prior to her . Nutrition Diagnosis: No nutrition diagnosis identified at this time. Plan: Medication: - No changes at this time. Glucose Monitoring: -Encouraged patient to call if note pattern of elevated glucoses. -Encouraged patient to bring glucose records to follow-up visits. Food/Exercise/Habit Change: -Encouraged physical activity, as tolerated. -Encouraged 3 meals containing carbohydrates, snacks as needed. -Follow up as needed. Note sent to endo to determine if patient needs to schedule follow up with them. Goals: Date: Category: Goals: Progression: 06/22/2022 Monitoring Diabetes Check glucose 4 times daily as instructed. Completed/On Track This visit was conducted as a: Video Visit Location of clinician: clinic Location of patient: home Time spent on video in btyp-lh-gvle contact with patient, if applicable: 17 minutes Education content taught can be found in the diabetes education smartform documented in this encounter Plan of Treatment Not on filedocumented as of this encounter Visit Diagnoses Diagnosis Gestational diabetes mellitus (GDM), ant epartum, gestational diabetes method of control unspecified - Primary documented in this encounter Care Teams Pediatric Pathologist Relationship Specialty Start Date End Date Heydi Santana PA-C PCP - General 11/14/10 [address] [place] [address] documented as of this encounter
--- OUTSIDE RECORDS SUMMARY | 2022-07-14 08:17 | XMS_ITS | Encounter Summary ---
:1990 Author Organization [facility] Address [address], [place] [address] Care Team Providers Name Role Phone Heydi Santana Jaquelin RENNER Primary Care Provider Encounter Details Date Type Department Care Team Description 03/12/2012 Lab Visit [facility] y , incidental [address] [place] [address] Social History Tobacco Use Types [...] - 03/12/2012 1:33 PM CDT Performed at [facility], [address] [facility], [place] [address] Zack Yun MD LAB_1 Performing Organization Address City/State/ZIP Code Phon e Number [facility] CONVERSION documented in this encounter Visit Diagnoses Diagnosis , incidental state, incidental documented in this encounter Care Teams Meat Blender Relationship Specialty Start Date End Date Heydi Santana PA-C PCP - General 11/14/10 [address] [place] [address] documented as of this encounter
--- OUTSIDE RECORDS SUMMARY | 2022-07-14 08:17 | XMS_ITS | Encounter Summary ---
:1990 Author Organization [employer] Address [address] [place] [address] Care Team Providers Name Role Phone Max Heydi Jaquelin RENNER Primary Care Provider [phone] Reason for Visit Reason Comments Sore Throat Encounter Details Date Type Department Care Team Description 02/11/2011 Office Visit [facility] Apple Sore [facility] (Primary Dx) [address] [address] Social History Tobacco Use [...] culture obtained. ASSESSMENT: Pharyngitis. PLAN: Symptomatic care. Ckit-puw-prvikpk Tylenol or ibuprofen 4 times a day [...] THROAT CULTURE ONLY (02/11/2011 3:33 PM CDT) Proviation Method Time Signature Grp A Culture Negative [facility] Final Specimen Anatomical Collection Method Collection Time Receive d Time (Source) Location / / Volume Laterality 02/11/2011 3:33 PM 1 3:57 CDT PM CDT Belkis Sanchez APRN FARM CREW MEMBER LAB_1 Performing Organization Address [facility] Phon e Number [facility] [phone] [facility] [address] [place] [phone] STREP GRP A, RAPID SCREEN (02/11/2011 3:33 PM CDT) Proviation Method Time Signature Grp A Rapid Negative NEG [facility] Screen Specimen Anatomical Collection Method Collection Time Receive d Time (Source) Location / / Volume Laterality 02/11/2011 3:33 PM 1 3:57 CDT PM CDT Belkis Sanchez APRN FARM CREW MEMBER LAB_1 Performing Organization Address [facility] Phon e Number [facility] [phone] [facility] [address] [place] [phone] documented in this encounter Visit Diagnoses Diagnosis Sore throat - Primary Acute pharyngitis documented in this encounter Care Teams Home Care Physical Therapist Relationship Specialty Start Date End Date Heydi Santana PA-C PCP - General 11/14/10 [address] [place] [address] documented as of this encounter
--- OUTSIDE RECORDS SUMMARY | 2022-07-14 08:17 | XMS_ITS | Encounter Summary ---
:1990 Author Organization [employer] Address [address], [place] [address] Care Team Providers Name Role Phone Heydi Santana PA-C Primary Care Provider [phone] Reason for Visit Reason Comments Other Encounter Details Date Type Department Care Team Description 06/22/2022 Telephone [facility] [address] Celina Deleon PA-C Other Endocrinology [address] [place] [place] [address] [place] [address] [phone] Social History Tobacco Use Types Packs/Day Years [...] on filedocumented in this encounter Care Teams Barking Machine Feeder Relationship Specialty Start Date End Date Heydi Santana PA-C PCP - General 11/14/10 [address] [place] [address] documented as of this encounter
--- OUTSIDE RECORDS SUMMARY | 2022-07-14 08:17 | XMS_ITS | Encounter Summary ---
:1990 Author Organization [employer] Address [address] [address] Care Team Providers Name Role Phone Max, Heydi Jaquelin RENNER Primary Care Provider [phone] Reason for Visit Reason Comments DIABETES,GESTATIONAL Encounter Details Date Type Department Care Team Description 06/30/2022 Telemedicine IDC ADULT DIAB SVCS Yahaira Arrieta stational diabetes MEL Garcia RDN, PAVAN, DU mellitus (GDM), [address] [place] [address] antepartum, [place] [address] [address] gestational diabetes [phone] [place], [place] method of control [id number] unspecified (Primary [phone] (Wo rk) Dx) Social History Tobacco Use [...] patient: home Time spent on video in ljea-ra-fbvk contact with patient, if applicable: 20 mins Charted and educated by Lisa Lovelace RN Co-educated by Yahaira Arrieta RDN, [facility] Education content taught can be found in the diabetes education smartform documented in this encounter Plan of Treatment Not on filedocumented as of this encounter Visit Diagnoses Diagnosis Gestational diabetes mellitus (GDM), ant epartum, gestational diabetes method of control unspecified - Primary documented in this encounter Care Teams Vacuum Cleaner Repairer Relationship Specialty Start Date End Date Heydi Santana PA-C PCP - General 11/14/10 [address] [place] [address] documented as of this encounter
--- OUTSIDE RECORDS SUMMARY | 2022-07-14 08:17 | XMS_ITS | Encounter Summary ---
:1990 Author Organization [employer] Address [address] [address] Care Team Providers Name Role Phone Heydi Santana PA-C Primary Care Provider [phone] Reason for Visit Reason Comments Chest Pain Encounter Details Date Type Department Care Team Description 10/25/2011 Hospital Encounter [facility] sinusitis, unspecified; Care MD Kim Unspecified asthma, with exacerbation [address] [facility] [address] [place], [place] [phone] [address] Social History Tobacco Use Types Packs/Day Years Used Date Smoking Tobacco: Never Alcohol Use Standard Drinks/Week Comments No 0 (1 standard drink = 0.6 oz pure alcoho l) Sex Assigned at Date Recorded Not on file documented as of this encounter Last Filed Vital Signs Vital Sign Reading Time Taken Comments Blood Pressure 123/78 10/25/2011 1:10 PM CREATIVE DESIGNER Pulse 84 10/25/2011 1:10 PM CREATIVE DESIGNER Temperature 37.2 ??C (99 ??F) 10/25/2011 1:10 PM CREATIVE DESIGNER Respiratory Rate 16 10/25/2011 1:10 PM CREATIVE DESIGNER Oxygen Saturation 99% 10/25/2011 1:10 PM CREATIVE DESIGNER Inhaled Oxygen Concentration - - Weight - [...] Date:11/04/11, Frequency:2 TIMES DAILY *No Administrations Recorded TIVE DESIGNER documented in this encounter Plan of Treatment Not on filedocumented as of this encounter Visit Diagnoses Diagnosis Acute sinusitis, unspecified Unspecified asthma, with exacerbation (H RC) Unspecified asthma, with exacerbation documented in this encounter Care Teams Wharfmaster Relationship Specialty Start Date End Date Heydi Santana PA-C PCP - General 11/14/10 [address] [place] [address] documented as of this encounter
--- OUTSIDE RECORDS SUMMARY | 2022-07-14 08:17 | XMS_ITS | Clinical Summary ---
:1990 Author Organization [facility] Address [address], [place] [address] Care Team Providers Name Role Phone Heydi Santana PA-C Primary Care Provider [phone] Source Comments You are receiving this [...] for each transition of care or referral. [employer] Allergies No known active allergies Medications Medication [...] Description 07/14/2022 Telemedicine Diabetes Program Yahaira Arrieta, [facility], LD, CDCES mellitus (GDM ), antepartum, ges tational diabetes method of control unspeci fied (Primary Dx) 06/30/2022 Telemedicine Diabetes Program Yahaira Arrieta stational diabetes RDN, LD, CDCES mellitus (GDM [...] 37.2 ??C (99 ??F) 10/25/2011 1:10 PM RESTAURANT AND BAR MANAGER Respiratory Rate 16 10/25/2011 1:10 PM RESTAURANT AND BAR MANAGER Oxygen Saturation 99% 10/25/2011 1:10 PM RESTAURANT AND BAR MANAGER Inhaled Oxygen Concentration - - Weight 68.5 kg (151 lb) 06/22/2022 5:04 PM patient repo rted CDT Height - - Body Mass Index - - Plan of Treatment Health Maintenance Due Date [...] Effective Dates Phone Addre ss Type Group [facility] [id number] 2021-Present [phone] CLAIMS Medicaid [address] [place] [address] Lulu Mata Personal/Family Self [address] (Home) [place], [place] [phone] (Work) Lulu Mata Personal/Family Self 1990 [address] (Home) [place] MCINTOSH [phone] MARIEL MCCONNELL (Work) [phone] Care Teams Inside Sales Account Representative Relationship Specialty Start Date End Date Heydi Santana PA-C PCP - General 11/14/10 [address] [place] [address]
--- OUTSIDE RECORDS SUMMARY | 2022-07-14 08:17 | XMS_ITS | Encounter Summary ---
:1990 Author Organization [employer] Address [address] [place] [address] Care Team Providers Name Role Phone Joel Anguiano MD Primary Care Provider Reason for Visit Reason Comments CONGESTION, NASAL Sore Throat EARACHE Encounter Details Date Type Department Care Team Description 04/30/2010 Office Visit [facility] Apple Sore roat (Primary Dx); [place] URI (Upper Respiratory Infec tion) [address] [place], [place] [address] Social History Tobacco Use [...] THROAT CULTURE ONLY (04/30/2010 12:27 PM CDT) [facility] Method Time Signature Grp A Culture Negative NEG [facility] Final Specimen Anatomical Collection Method Collection Time Receive d Time (Source) Location / / Volume Laterality 04/30/2010 12:27 04/30/2010 PM CDT 12:35 PM CDT Alycia Hernadez MD LAB_1 Performing Organization Address City/State/ZIP Code Phon e Number [facility] [phone] [facility] [address] [place] [phone] STREP GRP A, RAPID SCREEN (04/30/2010 12:27 PM CDT) [facility] gist Method Time Signature Grp A Rapid Negative NEG [facility] Screen Specimen Anatomical Collection Method Collection Time Receive d Time (Source) Location / / Volume Laterality 04/30/2010 12:27 04/30/2010 PM CDT 12:35 PM CDT Aylcia Hernadez MD LAB_1 Performing Organization Address City/State/ZIP Code Phon e Number [facility] [phone] [facility] [address] [phone] documented in this encounter Visit Diagnoses Diagnosis Sore throat - Primary Acute pharyngitis URI (upper respiratory infection) Acute upper respiratory infections of un specified site documented in this encounter Care Teams Stranner Relationship Specialty Start Date End Date Joel Anguiano MD PCP - General 01/17/10 11/13/10 [address] [place] [address] documented as of this encounter
--- OUTSIDE RECORDS SUMMARY | 2022-07-14 08:17 | XMS_ITS | Clinical Summary ---
:1990 Author Organization [facility] [place] [address] Care Team Providers Name Role Phone Genny Lazo MD Primary Care Provider [phone] Allergies No known active allergies Medications [...] Father Premature CHD (under age 60) Father [place] Allergies Mother Hypertension Mother Allergies Sister 4 [...] uts 05m/ lb 9.2 oz) Delivery Location: [facility] Comments: Induced preeclampsia Current OB Episode Summary Episode Dates Estimated Date of Pregravid Weight TWG (As of ) Delivery 04/04/2022 - Present Unknown (07/14/2022) Last Filed Vital Signs Vital Sign Reading [...] Height 152.4 cm (5') 09/23/2015 2:13 PM WOOD DRILL OPERATOR Body Mass Index 31.05 09/23/2015 2:13 PM WOOD DRILL OPERATOR Plan of Treatment Upcoming Encounters Date Type Specialty Care Team Description 08/14/2022 Hospital Encounter Cheikh Gautam M D Health Maintenance Due Date Last Done Comments [...] TASHI AKINS MA 2012-Present [address] [place] [address] (Home) [place], [place] [phone] (Work) Lulu Mata Personal/Family Self [address] (Home) [place], [place] [phone] (Work) Advance Directives Latest Code Status on File Code Status Date Activated Date Inactivated Comments Full Code 12/05/2012 6:17 AM 12/07/2012 9:39 PM Full Code 12/05/2012 1:03 AM 12/05/2012 6:17 AM Full Code 12/03/2012 4:10 PM 12/05/2012 1:03 AM Full Code 11/30/2012 9:24 PM 12/01/2012 3:09 AM Full Code 11/30/2012 9:03 PM 11/30/2012 9:24 PM Care Teams Salad Maker Relationship Specialty Start Date End Date Genny Lazo MD PCP - General Family Practice 07/02/[address] [place] [address] [place] [phone] (work)
--- OUTSIDE RECORDS SUMMARY | 2022-07-14 08:17 | XMS_ITS | Encounter Summary ---
:1990 Author Organization [employer] Address [address], [place] [address] Care Team Providers Name Role Phone Heydi Santana PA-C Primary Care Provider [phone] Encounter Details Date Type Department Care Team Description 06/22/2022 Telemedicine [facility] [address] [facility] diabetes Endocrinology MD Reji mellitus (GDM), [address] [facility] [address] [facility] ant epartum, [address] Bl[address] gestational diabetes [facility] thod of control [phone] unspecified (Primary [phone] (Wo rk) Dx) Social History Tobacco Use [...] female seen in consultation, referred by OBGYN. [facility] in [place], [place]. Planning to deliver at [facility]. Currently at 32 weeks and 3 days [...] condition Both parents have hyperlipidemia. Works at [employer] Plans to work until close to due date. 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 Normal sensation in all 4 [...] Patient will meet with Diabetes Education and State Federal Relations Deputy Director after this visit today for instructions as [...] documented in this encounter Care Teams Machine Greaser Relationship Specialty Start Date End Date Heydi Santana PA-C PCP - General 11/14/10 [address] [place] [address] documented as of this encounter
--- OUTSIDE RECORDS SUMMARY | 2022-07-14 08:17 | XMS_ITS | Encounter Summary ---
:1990 Author Organization [facility] Address [address] [address] Care Team Providers Name Role Phone Heydi Santana PA-C Primary Care Provider [phone] Encounter Details Date Type Department Care Team Description 11/13/2003 PN Conversion Only [facility] [address] [place] [address] Social History Tobacco Use Types Packs/Day Years Used Date Smoking Tobacco: Never Assessed Sex Assigned at Date Recorded Not on file documented as of this encounter Plan of Treatment Not on filedocumented as of this encounter Visit Diagnoses Not on filedocumented in this encounter Care Teams Fire Sprinkler Fitter Relationship Specialty Start Date End Date Heydi Santana PA-C PCP - General 11/14/10 [address] [place], [place] [address] documented as of this encounter
--- OUTSIDE RECORDS SUMMARY | 2022-07-14 08:17 | XMS_ITS | Encounter Summary ---
:1990 Author Organization [employer] Address [address] [place] [address] Care Team Providers Name Role Phone Unassigned, Provider Primary Care Provider Unavailable Reason for Visit Reason Comments ASTHMA Encounter Details Date Type Department Care Team Description 11/18/2009 Office Visit [facility] Miguelito Anguiano MD URI (Upper Medicine [address] Respiratory [address] Infection) (Primary [place], [place] [address] [place], [place] Dx) [phone] Social History Tobacco Use Types Packs/Day Years Used Date Smoking Tobacco: Never Alcohol Use Standard Drinks/Week Comments No 0 (1 standard drink = 0.6 oz pure alcoho l) Sex Assigned at Date Recorded Not on file documented as of this encounter Last Filed Vital Signs Vital Sign Reading Time Taken Comments Blood Pressure 120/70 11/18/2009 2:07 PM DEICER TESTER Pulse 72 11/18/2009 2:07 PM DEICER TESTER Temperature - - Respiratory Rate 18 11/18/2009 2:07 PM DEICER TESTER Oxygen Saturation - - Inhaled Oxygen Concentration - - Weight 65.3 kg (144 lb) 11/18/2009 2:07 PM DEICER TESTER Height - - Body Mass Index - [...] clinic p.r.n. Joel Anguiano MD 11/18/2009 ER TESTER documented in this encounter Plan of Treatment Not on filedocumented as of this encounter Visit Diagnoses Diagnosis URI (upper respiratory infection) - Prim prosper Acute upper respiratory infections of un specified site documented in this encounter Care Teams Student Services Coordinator Relationship Specialty Start Date End Date Unassigned, Provider PCP - General 08/17/09 01/16/[address] [place] [address] documented as of this encounter
--- OUTSIDE RECORDS SUMMARY | 2022-07-14 08:18 | XMS_ITS | Encounter Summary ---
:1990 Author Organization [facility] Address [address] [place] [address] Care Team Providers Name Role Phone Ben Arce M.D. Primary Care Provider Encounter Details Date Type Department Care Team Description 12/20/2021 Hospital Encounter Department of Cheikh Gautam Laboratory Medicine Minoo Garcia Supervis ion Of Other in [facility] Unspecified [address] [place] [address] Social History Tobacco Use Types Packs/Day Years [...] at Date Recorded Female 12/02/2021 5:19 PM EDITOR FARM JOURNAL documented as of this encounter Medications at [...] Encounter For Results for this , S EDITOR FARM JOURNAL Supervision Of Other procedu re are in Normal the results Unspecified section. Trimester HIV-1/-2 AG AND AB Routine 12/20/2021 11:34 AM Encounter For R esults for this SCRN, EDITOR FARM JOURNAL Supervision Of Other proce dure are in PLASMA Normal the results Unspecified section. Trimester SYPHILIS TOTAL AB Routine 12/20/2021 11:34 AM Encounter For Re sults for this W/ REFLEX S EDITOR [employer]ARM JOURNAL Supervision Of Other procedu re are in Normal the results Unspecified section. Trimester HBS ANTIGEN Routine 12/20/2021 11:34 AM Encounter For Results for this , S EDIT[employer]ARM JOURNAL Supervision Of Other procedu re are in Normal the results Unspecified section. Trimester ABORH, RBC Routine 12/20/2021 11:34 AM Encounter For Results for this EDITOR [employer]ARM JOURNAL Supervision Of Other procedu re are in Normal the results Unspecified section. Trimester RUBELLA ANTIBODIES, Routine 12/20/2021 11:34 AM Encounter For Results for this IGG EDITOR [employer]ARM JOURNAL Supervision Of Other procedu re are in Normal the results Unspecified section. Trimester CBC WITHOUT Routine 12/20/2021 11:34 AM Encounter For Results for this DIFFERENTIAL, B [employer]ARM [employer]RNAL Supervision Of Other proc edure are in Normal the results Unspecified section. Trimester ANTIBODY SCREEN, B Routine 12/20/2021 11:34 AM Encounter For R esults for this EDITOR [employer]ARM [employer]RNA[employer] Supervision Of Other procedu re are in Normal the results Unspecified section. Trimester documented in this encounter Results Hepatitis C Virus Antibody Screen (12/20/2021 11:34 AM EDITOR FARM JOURNAL) P athologist Signature HCV Ab Scrn Negative Negative 12/21/2021 [facility] , S 8:10 AM EDITOR FARM JOURNAL Comment: Vinsbp-lg-kfwfrz ratio is <1.00 . Specimen Anatomical Collection Method Collection Time Receive d Time (Source) Location / / Volume Laterality Blood (Blood, 12/20/2021 11:34 12/21/2021 6:40 Venous) AM EDITOR FARM JOURNAL AM EDITOR FARM JOURNAL Cheikh Gautam M.D. LAB MICROBIOLOGY - BLOOD ORD ERABLES Performing Organization Address City/[facility]/ZIP Code Phon e Number [facility] [address] [place] [address] [place] [address] [place] [address] Laboratory Medicine and Pathology [address] [place] Syphilis Total Ab w/ Reflex, Serum (12/20/2021 11:34 AM EDITOR FARM JOURNAL) Patholo gist Method Time Signature Syphilis Nonreactive Nonreactive 12/21/2021 [facility] Total Ab w/ 11:40 AM EDITOR FARM JOURNAL Reflex Comment: No serologic evidence of infection with T. pallidum (syphilis). ??Repeat testing may be cons idered in patients with suspected acute or primary syphilis in 2-4 weeks. For additional information on interpreta tion of the syphilis reverse algorithm and resul ts, see: [email or web address] Specimen Anatomical Collection Method Collection Time Receive d Time (Source) Location / / Volume Laterality Blood (Blood, 12/20/2021 11:34 12/20/2021 6:27 Venous) AM EDITOR FARM JOURNAL PM EDITOR FARM JOURNAL Cheikh Gautam M.D. LAB BLOOD ADD-ON Performing Organization Address City/[facility] Phon e Number [phone] [place] [address] System in [address] Rubella Antibodies, IgG (12/20/2021 11:34 AM EDITOR FARM JOURNAL) P athologist Signature Rubella Ab, Positive 12/21/2021 [facility] IgG, S 11:40 AM EDITOR [employer]ARM JOURNAL Comment: Results suggest response to immunization or prior exposure to the virus. ----REFERENCE VALUE---- Vaccinated: Positive (>=1.0 AI) Unvaccinated: Negative (<=0.7 AI) Rubella IgG Antibody Index 2.6 12/21/2021 11 :40 AM EDITOR FARM JOURNAL [facility] Specimen Anatomical Collection Method Collection Time Receive d Time (Source) Location / / Volume Laterality Blood (Blood, 12/20/2021 11:34 12/20/2021 6:27 Venous) AM EDITOR FARM JOURNAL PM EDITOR [employer]ARM JOURNAL Cheikh Gautam M.D. LAB MICROBIOLOGY - BLOOD ORD ERABLES Performing Organization Address City/State/ZIP Code Phon e Number [facility]- [address] [place] [address] [phone] [place] [address] System [address] HIV-1/-2 Ag and Ab Scrn, Plasma (12/20/2021 11:34 AM EDITOR FARM JOURNAL) P athologist Signature HIV Ag/Ab Negative Negative 12/21/2021 [facility] Scrn, 11:40 AM EDITOR [employer]ARM JOURNAL P Comment: Negative result does not rule out HIV in fection. If exposure to HIV infection occurred <14 d ays ago, contact the laboratory to request additi on of HIV-1 RNA detection / quantification test. HIV-1 p24 Ag Scrn, P Negative Negative 12/21/2021 11:40 AM EDITOR FARM JOURNAL [facility] Comment: Negative result does not rule out HIV in fection. If exposure to HIV infection occurred <14 d ays ago, contact the laboratory to request additi on of HIV-1 RNA detection / quantification test. HIV-1 Ab Scrn, P Negative Negative 12/21/2021 11: 40 AM EDITOR FARM JOURNAL [facility] Comment: Negative result does not rule out HIV in fection. If exposure to HIV infection occurred <14 d ays ago, contact the laboratory to request additi on of HIV-1 RNA detection / quantification test. HIV-2 Ab Scrn, P Negative Negative 12/21/2021 11: 40 AM EDITOR FARM JOURNAL [facility] Comment: Negative result does not rule out HIV in fection. If exposure to HIV infection occurred <14 d ays ago, contact the laboratory to request additi on of HIV-1 RNA detection / quantification test. Specimen Anatomical Collection Method Collection Time Receive d Time (Source) Location / / Volume Laterality Blood (Blood, 12/20/2021 11:34 12/20/2021 6:27 Venous) AM EDITOR FARM JOURNAL PM EDITOR [employer]ARM JOURNAL Cheikh Gautam M.D. LAB MICROBIOLOGY - BLOOD ORD ERABLES Performing Organization Address City/State/ZIP Code Phon e Number [facility]- [address] [place] [address] [phone] [place] [address] System [address] HBs Antigen , Serum (12/20/2021 11:34 AM EDITOR FARM JOURNAL) [facility] Method Time Signature HBs Antigen Non reactive Non reactive 12/20/2021 [facility] , S 4:50 PM EDITOR [employer]ARM JOURNAL Specimen Anatomical Collection Method Collection Time Receive d Time (Source) Location / / Volume Laterality Blood (Blood, 12/20/2021 11:34 12/20/2021 3:49 Venous) AM EDITOR FARM JOURNAL PM EDITOR [employer]ARM JOURNAL Cheikh Gautam M.D. LAB MICROBIOLOGY - BLOOD ORD ERABLES Performing Organization Address City/State/ZIP Code Phon e Number [facility]- [address] [place] [address] [place] [facility] [place] [address] [facility] [address] (ABNORMAL) CBC without Differential (12/20/2021 11:34 AM EDITOR FARM JOURNAL) [facility] Method Time Signature Hemoglobin 14.1 11.6 - 12/20/2021 [facility] 15.0 g/dL 11:44 AM EDITOR [employer]ARM JOURNAL Hematocrit 41.0 35.5 - 12/20/2021 [facility] 44.9 % 11:44 AM EDIT[employer] J[employer] Erythrocytes 4.91 3.92 - 12/20/2021 [facility] 5.13 11:44 AM EDITOR [employer]ARM JOURNAL x10(12)/L MCV 83.5 78.2 - 12/20/2021 [facility] 97.9 fL 11:44 AM EDITOR [employer]ARM JOURNAL RBC Distrib Width 11.7 (L) 12.2 - 12/20/2021 [facility] 16.1 % 11:44 AM EDITOR [employer]ARM JOURNAL Platelet Count 360 157 - 371 12/20/2021 [facility] x10(9)/L 11:44 AM EDITOR [employer]ARM JOURNAL Leukocytes 11.1 (H) 3.4 - 9.6 12/20/2021 [facility] x10(9)/L 11:44 AM EDITOR FARM JOURNAL Specimen Anatomical Collection Method Collection Time Receive d Time (Source) Location / / Volume Laterality Blood (Blood, 12/20/2021 11:34 12/20/2021 Venous) AM EDITOR [employer]ARM JOURNAL 11:40 AM EDIT[employer] JOURNAL Cheikh M Dain M.D. LAB BLOOD ADD-ON Performing Organization Address City/[facility]/ZIP Code Phon e Number [facility]- [address] [place] [address] [facility] [facility] [place] [address] System in [place] [address] Antibody Screen, RBC (with reflex Antibody ID) (12/20/2021 11:34 AM EDITOR FARM JOURNAL) P athologist Signature Antibody Screen NEG 12/20/2021 [facility] 5:16 PM EDITOR [employer]ARM JOURNAL Specimen Anatomical Collection Method Collection Time Receive d Time (Source) Location / / Volume Laterality Blood (Blood, 12/20/2021 11:34 12/20/2021 3:49 Venous) AM EDITOR FARM JOURNAL PM EDITOR FARM JOURNAL Cheikh Gautam M.D. LAB BLOOD BANK TEST ORDERABL ES Performing Organization Address City/[facility]/ZIP [facility] e Number [facility]- [address] [place] [address] [facility] [place], [place] [id number] [place] [address] [address] [facility] ABORh, RBC (12/20/2021 11:34 AM EDITOR FARM JOURNAL) P athologist Signature ABO Group O 12/20/2021 5:16 AUST PM EDITOR [employer]ARM JOURNAL Rh Type POS 12/20/2021 5:16 AUST PM EDITOR [employer]ARM JOURNAL Specimen Anatomical Collection Method Collection Time Receive d Time (Source) Location / / Volume Laterality Blood (Blood, 12/20/2021 11:34 12/20/2021 3:51 Venous) AM EDITOR FARM JOURNAL PM EDITOR FARM JOURNAL Cheikh Gautam M.D. LAB BLOOD BANK TEST ORDERABL ES Performing Organization Address City/[facility]/ZIP [facility] [place] e Number [facility]- [address] [place] [address] [facility] [place], [place] [id number] [place] [address] [address] [facility] documented in this encounter Visit Diagnoses Diagnosis Encounter For Supervision Of Other Stella l Unspecified Trimester (HCC) documented in this encounter Additional Health Concerns Assessment Noted Time PHQ-9 Depression Total Score: 4 12/20/2021 10:52 AM CS T documented as of this encounter Care Teams Manager Field Investigations Relationship Specialty Start Date End Date Ben Arce M.D. PCP - General Family Medicine 01/13/[address] [place] [address] documented as of this encounter
--- OUTSIDE RECORDS SUMMARY | 2022-07-14 08:18 | XMS_ITS | Encounter Summary ---
:1990 Author Organization [facility] Address [address] [place] [address] Care Team Providers Name Role Phone Ben Arce M.D. Primary Care Provider Encounter Details Date Type Department Care Team Description 12/20/2021 Hospital Encounter Department of Cheikh Gautam Laboratory Medicine Minoo Garcia Supervis ion Of Other in [facility] Unspecified [address] [place] [address] Social History Tobacco Use Types Packs/Day Years [...] you attend jehovah's witness or Never 2021 worship services? Do you [...] Date Recorded Female 12/02/2021 5:19 PM SURVEY OPERATIONS DIRECTOR documented as of this encounter Medications [...] Encounter For Resul ts for this AM SURVEY OPERATIONS DIRECTOR Supervision Of Other procedu re are in Normal the results Unspecified section. Trimester URINALYSIS WITH Routine 12/20/2021 11:26 Encounter For Results for this MICROSCOPIC IF AM SURVEY OPERATIONS DIRECTOR Supervision Of Other proce dure are in INDICATED, U Normal the results Unspecified section. Trimester BACTERIAL CULTURE, Routine 12/20/2021 11:26 Encounter For Resu lts for this AEROBIC + SUSC, AM SURVEY OPERATIONS DIRECTOR Supervision Of Other proc edure are in URINE Normal the results Unspecified section. Trimester documented in this encounter Results Hemoglobin A1c (12/20/2021 11:34 AM SURVEY OPERATIONS DIRECTOR) P athologist Signature Hemoglobin A1c, 5.2 4.2 - 5.6 12/20/2021 [facility] B % 12:27 PM SURVEY OPERATIONS DIRECTOR Specimen Anatomical Collection Method Collection Time Receive d Time (Source) Location / / Volume Laterality Blood (Blood, 12/20/2021 11:34 12/20/2021 Venous) AM SURVEY OPERATIONS DIRECTOR 11:40 AM SURVEY OPERATIONS DIRECTOR Cheikh Gautam M.D. LAB BLOOD ADD-ON Performing Organization Address City/State/ZIP Code Phon e Number [facility]- [address] [place] [address] [place] [address] System in [place] [address] Bacterial Culture, Aerobic + Susc, Urine (12/20/2021 11:26 AM SURVEY OPERATIONS DIRECTOR) Patholo gist Method Time Signature Urine Culture No growth 12/21/2021 [facility] after 1 day 8:40 AM SURVEY OPERATIONS DIRECTOR of incubation. Specimen Anatomical Collection Method Collection Time Receive d Time (Source) Location / / Volume Laterality Urine (Urine, 12/20/2021 11:26 12/20/2021 2:19 Midstream) AM SURVEY OPERATIONS DIRECTOR PM SURVEY OPERATIONS DIRECTOR Comment: Specimen Source Site: Urine Cheikh Gautam M.D. LAB MICROBIOLOGY - GENERAL O RDERABLES Performing Organization Address City/State/ZIP Code Phon e Number [facility]- [address] [place] [address] [place] [address] System in [place] [address] [place] [address] Urinalysis with Microscopic if Indicated (12/20/2021 11:26 AM SURVEY OPERATIONS DIRECTOR) P athologist Signature Source Urine, 12/20/2021 [place] Urine, Clean 12:12 PM SURVEY OPERATIONS DIRECTOR Catch Clarity Clear Clear 12/20/2021 [facility] 12:12 PM SURVEY OPERATIONS DIRECTOR Color Yellow 12/20/2021 [facility] 12:12 PM SURVEY OPERATIONS DIRECTOR Comment: ----REFERENCE VALUE---- Colorless Yellow Ronda Blood Negative Negative 12/20/2021 12:12 PM SURVEY OPERATIONS DIRECTOR [facility] Nitrite Negative Negative 12/20/2021 12:12 PM SURVEY OPERATIONS DIRECTOR [facility] Leukocyte Esterase Negative Negative 12/20/2021 12:[address] [facility] Protein Negative mg/dL 12/20/2021 12:12 PM SURVEY OPERATIONS DIRECTOR [facility] Comment: ----REFERENCE VALUE---- Negative Trace Glucose Negative Negative mg/dL 12/20/2021 12:12 PM SURVEY OPERATIONS DIRECTOR O FRANSICO Ketone Negative Negative mg/dL 12/20/2021 12:12 PM SURVEY OPERATIONS DIRECTOR O FRANSICO Bilirubin Negative Negative 12/20/2021 12:12 PM SURVEY OPERATIONS DIRECTOR [facility] pH 6.0 5.0 - 8.0 12/20/2021 12:12 PM SURVEY OPERATIONS DIRECTOR [facility] Specific [place] 1.005 1.001 - 1.035 12/20/2021 12:12 PM SURVEY OPERATIONS DIRECTOR [facility] Urobilinogen 0.2 0.2 - 1.0 mg/dL 12/20/2021 12:[address] [place] Specimen Anatomical Collection Method Collection Time Receive d Time (Source) Location / / Volume Laterality Urine (Urine, 12/20/2021 11:26 12/20/2021 Clean Catch) AM SURVEY OPERATIONS DIRECTOR 12:06 PM SURVEY OPERATIONS DIRECTOR Cheikh Gautam M.D. LAB URINE ORDERABLES Performing Organization Address City/State/ZIP Code Phon e Number [facility]- [address] [place] [address] [place] [address] System in [place] [address] documented in this encounter Visit Diagnoses Diagnosis Encounter For Supervision Of Other Stella echols Unspecified Trimester (HCC) documented in this encounter Additional Health Concerns Assessment Noted Time PHQ-9 Depression Total Score: 4 12/20/2021 10:52 AM CS T documented as of this encounter Care Teams Coal Mill Operator Relationship Specialty Start Date End Date Ben Arce M.D. PCP - General Family Medicine 01/13/[address] [place] [address] documented as of this encounter
--- OUTSIDE RECORDS SUMMARY | 2022-07-14 08:18 | XMS_ITS | Encounter Summary ---
:1990 Author Organization [facility] Address [address] [place] [address] Care Team Providers Name Role Phone Ben Arce M.D. Primary Care Provider Encounter Details Date Type Department Care Team Description 12/20/2021 Orders Only Department of Obstetrics and Gau Terrence zamarripa M.D. Gynecology in [address] [address] [place] [address] [phone] Social History Tobacco Use Types Packs/Day Years [...] do you attend baptist or Never 2021 baptism services? Do you [...] at Date Recorded Female 12/02/2021 5:19 PM LEGAL INSTRUMENTS EXAMINER documented as of this encounter Plan of Treatment Not on filedocumented as of this encounter Visit Diagnoses Not on filedocumented in this encounter Additional Health Concerns Assessment Noted Time PHQ-9 Depression Total Score: 4 12/20/2021 10:52 AM CS T documented as of this encounter Care Teams Clinical Laboratory Technologist Relationship Specialty Start Date End Date Ben Arce M.D. PCP - General Family Medicine 01/13/[address] [facility] [place] [phone] documented as of this encounter
--- OUTSIDE RECORDS SUMMARY | 2022-07-14 08:18 | XMS_ITS | Encounter Summary ---
:1990 Author Organization [facility] Address [address] [place] [address] Care Team Providers Name Role Phone Ben Arce M.D. Primary Care Provider Encounter Details Date Type Department Care Team Description 02/01/2022 Hospital Encounter Department of Terrence Swenson High Risk Laboratory Medicine MGonzalez in [address] [address] [place], [place] [phone] [address] (Work) [phone] Social History Tobacco Use Types Packs/Day Years [...] do you attend orthodox or Never 2021 catholic services? 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 documented in this encounter Results [id number] Plus-Sent Out Lab (02/01/2022 9:52 AM CDT) [...] Organization Address City/State/ZIP Code Phon e Number [facility] [address] [place] [address] [employer] [facility] [place] [address] [employer] [address] documented in this encounter Visit Diagnoses Diagnosis High Risk (HCC) documented in this encounter Additional Health Concerns Assessment Noted Time PHQ-9 Depression Total Score: 4 12/20/2021 10:52 AM CS T documented as of this encounter Care Teams Host/Hostess Relationship Specialty Start Date End Date Ben Arce M.D. PCP - General Family Medicine 01/13/[address] [facility] [address] documented as of this encounter
--- OUTSIDE RECORDS SUMMARY | 2022-07-14 08:18 | XMS_ITS | Encounter Summary ---
:1990 Author Organization [facility] Address [address] [place] [address] Care Team Providers Name Role Phone Ben Arce M.D. Primary Care Provider Reason for Visit Reason Comments Decreased Movement Other Back pain Auth/Cert Specialty Diagnoses / Procedures Referred By Contact Refer red To Contact Diagnoses Procedures Referral ID Status Reason Start Date Expiration Date Visits Requ ested Visits Authorized [id number] 1 1 Encounter Details Date Type Department Care Team Description 07/12/2022 Hospital Encounter [facility] Rylie Mcdowell Decrease d [facility] [place] [facility] [address] [facility] Trimester Single Floor [place], [place] Gestation (HCC) [address] [place] [address] [O36.8130 [place], [place] [phone] (ICD-10-CM)] [address] (Work) (Primary Dx) [phone] Social History Tobacco Use Types Packs/Day Years [...] do you attend rastafarian or Never 2021 voodoo services? Do you [...] at Date Recorded Female 12/02/2021 5:19 PM BRAND STRATEGY MANAGER documented as of this encounter Discharge Instructions AttachmentsThe following attachments cannot be sent through Care Everywhere. Preparing for Your Experience (Cypriot) labor (Cypriot)documented in this encounter Medications at Time of Discharge Medication Sig Dispensed Refills Start Date End Date acetaminophen (TYLENOL) Take 1,000 mg by 0 500 mg tablet mouth every 6 (six) hours as needed for pain. amoxicillin-pot Take 1 tablet by 10 tablet 0 07/09/2022 clavulanate (Augmentin) mouth 2 (two) times 875-125 mg per a day for 5 days. tabletIndications: Sinusitis Acute aspirin 81 mg chewable Chew 81 mg daily. 0 tablet metFORMIN XR Take 500 mg by 0 06/06/2022 (GLUCOPHAGE-XR) 500 mg 24 mouth every hr tablet evening. omeprazole (PriLOSEC) 40 Take by mouth 0 05/01/[address] capsule daily. Take 1 tablet by 90 tablet 3 12/01/2021 vit27,calcium/iron/FA mouth daily. (multivitamin/mineral-pren atal) tablet blood pressure test See Admin 0 05/01/2022 kit-large kit Instructions. breast pump device 1 each Cyclic PN - 1 each 0 2 03/01/2023 see admin instructions. calcium carbonate-vitamin Take 1 tablet by 0 D3 625 mg (250 mg mouth daily with calcium)-3.125 mcg (125 breakfast. Unit) per tablet Contour Next EZ Meter misc See Admin 0 2 Instructions. Contour Next Test Strips USE TO TEST BLOOD 0 05/23 strips SUGER FOUR TIMES DAILY. Microlet Lancet USE TO TEST BLOOD 0 06/17/2022 SUGAR FOUR TIMES DAILY. documented as of this encounter Nursing Notes Marcelle Vallecillo R.N. - 07/12/2022 8:28 PM CDT INPATIENT NURSING DISCHARGE SUMMARY Discharge Provider: Rylie Mcdowell M.D. Admission Date: 07/12/2022 Discharge Date: 07/12/2022 DISCHARGE DISPOSITION Home/Self Care CONDITION AT DISCHARGE stable TREATMENTS None DEVICES/EQUIPMENT None PROFESSIONAL SKILLED SERVICES None MODE OF DISCHARGE Ambulatory TRANSPORTATION Private Vehicle ACCOMPANIED BY Family: Mother to pick pt up at hospital to head for home. All belongings sent home with patient. NST reactive and reassuring. No noticeable contractions on toco or noticed by pt. FHR 140-145 throughout NST duration. Category 1. Fluid bolus of 500mL given per order. Cervical checks done at 184, 1909, and 2013 1/-2 unchanged from all checks since arrival. Status update given to MD by junior underwriter andper MD pt is able to discharge to home. IV removed. Electronically signed by: Marcelle Vallecillo R.N. 07/12/22 8:36 PM CDT documented in this encounter Plan of Treatment Not on filedocumented as of this encounter Procedures Procedure Name Priority Date/Time Associated Comments Diagnosis URINALYSIS WITH Timed 07/12/2022 6:46 PM Result s for this MICROSCOPIC CDT procedure are i n the results section. documented in this encounter Results (ABNORMAL) Urinalysis with Microscopic: Urine, Midstream (07/12/2022 6:46 PM CDT) Analysis Performed At Patho logist Time Signature Source Urine, Urine, 07/12/2022 NPRG [...] Negative Negative mg/dL 07/12/2022 7:04 PM CDT AGRISCIENCE TEACHER RG Ketones, QI(U) Negative Negative mg/dL 07/12/2022 7:04 PM C DT NPRG Bilirubin Negative Negative 07/12/2022 7:04 PM CDT NPRG pH 6.0 5.0 - 8.0 07/12/2022 7:04 PM CDT NPRG Specific Vermillion >=1.030 1.001 - 1.035 07/12/2022 7:04 PM [...] Cells 11-20 /hpf 07/12/2022 7:04 PM CDT AGRISCIENCE TEACHER RG Bacteria Present (A) None Seen 07/12/2022 7:04 PM CDT NPRG Specimen Anatomical Collection Method Collection Time Receive d Time (Source) Location / / Volume Laterality Urine (Urine, 07/12/2022 6:46 PM 07/12/20 6:55 Midstream) CDT PM CDT Rylie Mcdowell M.D. LAB URINE ORDERABLES Performing Organization Address City/State/ZIP Code Phon e Number [facility]- [address] [place] [address] [place] [address] [place] [address] [facility] [address] [place] documented in this encounter Visit Diagnoses Diagnosis Decreased Movements Third Trimeste r Single Gestation (HCC) [O36.8130 (ICD-10-CM)] - Primary documented in this encounter Administered Medications Inactive Administered Medications - up to 3 most recent administrations Medication Order MAR Action Action Date Dose Rate Site lactated Ringer's bolus 500 New Bag 07/12/2022 7:28 PM CDT 500 mL 1000 mL/hr mL 500 mL, intravenous, at 1,000 mL/hr, Administer over 30 Minutes, Once, On Sun07/12/22 at 1930, For 1 dose documented in this encounter Active and Recently Administered Medications Times are shown in CDT. Scheduled Medication Order 07/10/2022 07/11/2022 07/12/2022 lactated Ringer's bolus 500 mL (COMPLETED) 1927 (New Bag - Provider: Marcelle Vallecillo R.N.)2003 (Stopped - Provider: Marcelle Vallecillo R.N.) 500 mL, intravenous, at 1,000 mL/hr, Adm inister over 30 Minutes, Once, On Sun07/12/22 at 1930, For 1 dose documented in this encounter Additional Health Concerns Assessment Noted Time PHQ-9 Depression Total Score: 4 12/20/2021 10:52 AM CS T documented as of this encounter Care Teams Data Entry Analyst Relationship Specialty Start Date End Date Ben Arce M.D. PCP - General Family Medicine 01/13/[address] [place] [address] documented as of this encounter
--- OUTSIDE RECORDS SUMMARY | 2022-07-14 08:18 | XMS_ITS | Encounter Summary ---
:1990 Author Organization [facility] Address [address] [place] [address] Care Team Providers Name Role Phone Ben Arce M.D. Primary Care Provider Reason for Visit Reason Comments Vomiting During Auth/Cert Specialty Diagnoses / Procedures Referred By Contact Refer red To Contact Diagnoses Procedures Referral ID Status Reason Start Date Expiration Date Visits Requ ested Visits Authorized [id number] 1 1 Encounter Details Date Type Department Care Team Description 06/12/2022 [facility], [address] [facility] [place], [place] [address] [place] [address] [place], [place] [phone] (Wo rk) [address] [phone] Social History Tobacco Use Types Packs/Day Years [...] at Date Recorded Female 12/02/2021 5:19 PM SUPPORT STAFF documented as of this encounter Last Filed [...] Meter misc See Admin 0 2 Instructions. famotidine (PEPCID) 40 mg Take 1 tablet (40 30 tablet 3 08/202207/09/2022 tablet mg total) by mouth 2 (two) times a day. documented as of this encounter Nursing Notes [...] appointment on Sunday with her PCP in [place]. Education provided on staying hydrated and how [...] Phon e Number [facility]- [address] [place], [place] [address] [facility] [place] [address] [facility] 2nd [facility] documented in this encounter Visit Diagnoses Not on filedocumented in this encounter Additional Health Concerns Assessment Noted Time PHQ-9 Depression Total Score: 4 12/20/2021 10:52 AM CS T documented as of this encounter Care Teams Electroplater Apprentice Relationship Specialty Start Date End Date Ben Arce M.D. PCP - General Family Medicine 01/13/[address] [place] [phone] documented as of this encounter
--- OUTSIDE RECORDS SUMMARY | 2022-07-14 08:18 | XMS_ITS | Encounter Summary ---
:1990 Author Organization [facility] Address [address] [place] [address] Care Team Providers Name Role Phone Ben Arce M.D. Primary Care Provider Reason for Visit Reason Comments facial pressure X 3 wks Encounter Details Date Type Department Care Team Description 07/09/2022 Office Visit Urgent Care, [facility], [facility] [place], in [place], FATOU, C.N.P., (Samina pendleton Dx) [place] D.N.P. [address] [place] [phone] Social History Tobacco Use Types Packs/Day Years [...] do you attend faith or Never 2021 taoism services? Do you [...] Date Recorded Female 12/02/2021 5:19 PM MANAGER OPERATING documented as of this encounter Last Filed Vital Signs Vital Sign Reading Time Taken Comments Blood Pressure 135/94 07/09/2022 8:58 AM CDT Pulse 97 07/09/2022 8:58 AM CDT Temperature 36.7 ??C (98.1 ??F) 07/09/2022 8:58 AM CDT Respiratory Rate - - Oxygen Saturation 98% 07/09/2022 8:58 AM CDT Inhaled Oxygen Concentration - - Weight - - Height - - Body Mass Index - - documented in this encounter Patient Instructions AttachmentsThe following attachments cannot be sent through Care Everywhere. Acute Sinusitis (Chinese)documented in this encounter Progress Notes Esther Andrea, FATOU, C.N.P., D.N.P. - 07/09/2022 9:00 AM CDT SUBJECTIVE CHIEF COMPLAINT / REASON FOR VISIT facial pressure (X 3 wks). HISTORY OF PRESENT ILLNESS Lulu Mata is a 32 y.o. female who is currently 34 weeks 6 days presents to the urgent care for evaluation of her sinus symptoms. Symptoms include nasal congestion, sinus pressure and facial pain. Patient has gestational diabetes. She reports that her symptoms have been ongoing for the last 3 weeks without improving. She is history of sinus infections in the past. She denies any fevers. Home treatments include use of Neti pot without any improvement in symptoms. REVIEW OF SYSTEMS A brief review of systems was negative except for that mentioned in the history of present of illness. The patient's social history, medical history, and home medications were reviewed in the electronic medical record. ALLERGIES/CONTRAINDICATIONS Allergies Allergen Reactions Luverne Pollen Itching and Wheezing OBJECTIVE VITAL SIGNS BP (!) 135/94 Pulse 97 Temp 36.7 ??C LMP 10/29/2021 (Approximate) SpO2 98% PHYSICAL EXAMINATION General: This patient is alert [...] previous visit (from the past 24 hour(s)). No results found. ASSESSMENT / PLAN #1 Sinusitis Acute - amoxicillin-pot clavulanate (Augmentin) 875-125 mg per tablet; Take 1 tablet by mouth 2 (two) times a day for 5 days., Starting 07/09/2022, Until Sun07/14/2022, Normal Complete the full course of antibiotic and use probiotic as discussed. Home care measures for reliefof sinus symptoms as discussed such as steam showers, sinus massage, and Neti Pot or saline nasal rinses. Use a humidifier in the room. Follow-up if no improvement in 5-7 days or if new or concerning symptoms develop. Patient verbalized understanding and agrees with this plan. No further needs at thistime. Electronically signed by: Esther Andrea APRN, C.N.PMaribell, D.N.P. 07/09/22 9:20 AM CDT documented in this encounter Plan of Treatment Not on filedocumented as of this encounter Visit Diagnoses Diagnosis Sinusitis Acute - Primary documented in this encounter Additional Health Concerns Assessment Noted Time PHQ-9 Depression Total Score: 4 12/20/2021 10:52 AM CS T documented as of this encounter Care Teams Academic Coordinator Relationship Specialty Start Date End Date Ben Arce M.D. PCP - General Family Medicine 01/13/[address] [place] [phone] documented as of this encounter
--- OUTSIDE RECORDS SUMMARY | 2022-07-14 08:18 | XMS_ITS | Encounter Summary ---
:1990 Author Organization [facility] Address [address] [place] [address] Care Team Providers Name Role Phone Ben Arce M.D. Primary Care Provider Encounter Details Date Type Department Care Team Description 03/27/2022 Ancillary Procedure Department of Cheikh Gautam For Obstetrics and Minoo Garcia Supervision O f Other Gynecology in Normal [place], [place] Unspecified [address] Trimester (HCC) [place] [address] Social History Tobacco Use Types [...] do you attend anabaptism or Never 2021 scientology services? Do you [...] Date Recorded Female 12/02/2021 5:19 PM ELEMENTARY SCHOOL BAND DIRECTOR documented as of this encounter Plan of [...] documented as of this encounter Care Teams Road Cleaner Relationship Specialty Start Date End Date Ben Arce M.D. PCP - General Family Medicine 01/13/21 [address] [place] [phone] documented as of this encounter
--- OUTSIDE RECORDS SUMMARY | 2022-07-14 08:18 | XMS_ITS | Encounter Summary ---
:1990 Author Organization [facility] Address [address] [place] [address] Care Team Providers Name Role Phone Ben Arce M.D. Primary Care Provider Reason for Visit Reason Comments Routine Visit 20weeks Outpatient (Routine) - Authorized Specialty Diagnoses / Procedures Referred By Contact Refer red To Contact Obstetrics and Cheikh Gautam [facility] william Gynecology Minoo Referral ID Status Reason Start Date Expiration Date Visits V isits Requested Authorized [id number] Authorized 12/20/2021 12/20/2022 15 15 Encounter Details Date Type Department Care Team Description 03/27/2022 Routine Department of Cheikh Gautam k (HCC) (Primary Dx); Obstetrics and Minoo Garcia Encounter For Supervision Of Normal Unspecified Trimester (HCC) Gynecology in [place], [place] [address] [place] [address] Social History Tobacco Use Types Packs/Day Years [...] do you attend episcopalian or Never 2021 mosque services? Do you [...] at Date Recorded Female 12/02/2021 5:19 PM MILKER MACHINE documented as of this encounter Last [...] -Gonorhrea/chlamydia urine today -Patient is transferring to [place] because it is closer -Problem list updated [...] Vaccinations: COVID complete but needs booster/Flu declines Scoreboard Operator: Pap NIL w/ neg HPV 11/2021 [...] she told me she is transferring to [place] because it is closer. documented in this encounter Plan of Treatment Not on filedocumented as of this encounter Procedures Procedure Name Priority Date/Time Associated Diagnosis Comme nts CHLAMYDIA/GONORRHOE Routine 03/27/2022 10:42 AM High Risk Preg roberta Results for this AE AMPLIFIED RNA CDT ([facility]) procedure a re in the results section. [...] M.D. LAB URINE ORDERABLES Performing Organization Address City/[facility]/ZIP Code Phon e Number [place] [address] [address] [place], [place] [address] [address] [place] [facility] [place] [id number] ALT (Alanine Aminotransferase) (03/31/2022 5:31 PM CDT) Patholo gist Method Time Signature Alanine 10 7 - 45 03/31/2022 NPRG Aminotransferase U/L 5:59 PM CDT (ALT), P Specimen Anatomical Collection Method Collection Time Receive d Time (Source) Location / / Volume Laterality Blood (Blood, 03/31/2022 5:31 PM 03/31/20 5:34 Venous) CDT PM CDT Cheikh Gautam M.D. LAB BLOOD ADD-ON Performing Organization Address City/[facility] Phon e Number [address] [address] [place] [facility] [place] [id number] [address] AST (Aspartate Aminotransferase) (03/31/2022 5:31 PM CDT) [facility] Method Time Signature Aspartate 13 8 - 43 03/31/2022 NPRG Aminotransferase U/L 5:59 PM CDT (AST), P Specimen Anatomical Collection Method Collection Time Receive d Time (Source) Location / / Volume Laterality Blood (Blood, 03/31/2022 5:31 PM 03/31/20 22 5:34 Venous) CDT PM CDT Cheikh Gautam M.D. LAB BLOOD ADD-ON Performing Organization Address City/[facility]/ZIP Code Phon e Number [place] [address] [address] [place], [place] [address] [place] [facility] [place] [phone] (ABNORMAL) Creatinine with Estimated GFR (03/31/2022 5:31 PM CDT) Analysis Performed At [facility] logist Time Signature Creatinine 0.58 (L) 0.59 - 03/31/2022 NPRG 1.04 mg/dL 5:59 PM CDT eGFR-Black/Afri >90 >=60 03/31/2022 NPRG can Syrian mL/min/BSA 5:59 PM CDT Comment: ----ADDITIONAL INFORMATION---- [...] M.D. LAB BLOOD ADD-ON Performing Organization Address City/[facility] Phon e Number [facility]- [address] [place] [address] [place] [address] [place] [address] Chlamydia / Gonorrhoeae Amplified RNA (03/27/2022 10:42 AM CDT) [facility] gist Method Time Signature Source [...] - GENERAL O RDERABLES Performing Organization Address City/[facility]/ZIP Code Phon e Number [facility]- [address] [place] [address] [place] [address] System in [place] [address] [facility] documented in this encounter Visit Diagnoses Diagnosis High Risk (HCC) - Primary Encounter For Supervision Of Normal Preg roberta Unspecified Trimester (HCC) documented in this encounter Additional Health Concerns Assessment Noted Time PHQ-9 Depression Total Score: 4 12/20/2021 10:52 AM CS T documented as of this encounter Care Teams Waterway Traffic Checker Relationship Specialty Start Date End Date Ben Arce M.D. PCP - General Family Medicine 01/13/[address] [place] [phone] documented as of this encounter
--- OUTSIDE RECORDS SUMMARY | 2022-07-14 08:18 | XMS_ITS | Encounter Summary ---
:1990 Author Organization [facility] Address [address] [place] [address] Care Team Providers Name Role Phone Ben Arce M.D. Primary Care Provider Reason for Referral Outpatient (Routine) - Authorized Specialty Diagnoses / Procedures Referred By Contact Refer red To Contact Obstetrics and Cheikh Gautam [facility] Gynecology Minoo Referral ID Status Reason Start Date Expiration Date Visits V isits Requested Authorized [id number] Authorized 12/20/2021 12/20/2022 15 15 Scheduling Instructions Every 4 weeks until 28 week gestation. Then every 2 weeks until 36 week gestati on. Then every 1 week until 40+ week gestati on. ONAL LINES ADVISOR Reason for Visit Reason Comments Initial Visit 7w 3d Outpatient (Routine) - Closed Specialty Diagnoses / Procedures Referred By Contact Refer red To Contact Obstetrics and Diagnoses Examination Test With Positive Result (HCC) Terrence Swenson M.D. [facility] Gy[facility]cology [address] [place] [address] Referral ID Status Reason Start Date Expiration Date Visits Requ ested Visits Authorized [id number] Closed 12/01/2021 12/01/2022 1 1 Encounter Details Date Type Department Care Team Description 12/20/2021 Initial Department of Obstetrics [place] in [place]: 6w1d and Gynecology in [place], [place] [address] [place] [address] Social History Tobacco Use Types Packs/Day [...] do you attend voodoo or Never 2021 restorationism services? Do you [...] at Date Recorded Female 12/02/2021 5:19 PM PERSONAL LINES ADVISOR documented as of this encounter Last Filed Vital Signs Vital Sign Reading Time Taken Comments Blood Pressure 136/80 12/20/2021 10:52 AM PERSONAL LINES ADVISOR Pulse - - Temperature - - Respiratory Rate - - Oxygen Saturation - - Inhaled Oxygen Concentration - - Weight 69.2 kg (152 lb 8.9 oz) 12/20/2021 10:52 AM PERSONAL LINES ADVISOR Height - - Body Mass Index 28.8 12/09/2021 8:31 AM PERSONAL LINES ADVISOR documented in this encounter Progress Notes Cheikh [...] Vaccinations: COVID complete but needs booster/Flu declines Senior Staff Accountant: Pap NIL w/ neg HPV 11/2021 Aneuploidy screening/Carrier Screening: declines Preeclampsia prevention: aspirin to start at 12 weeks FAS: 28 week labs: TDAP /Rhogam GBS Growth Ultrasounds: surveillance: Presentation (36 weeks): Del planning: PPBC: Problems: 1. Hx preeclampsia: aspirin to start at 12 weeks. Need to get baseline preE labs 2. Hx GDM: Early A1C ordered ONAL LINES ADVISOR documented in this encounter Plan of Treatment [...] Diagnoses Obstetrics and Outpatient Referral Routine 15 [facility] Gynecology office starting 0 12/20/2021 visit [...] at 3.5 cm Unless otherwise indicated, the dayl rvey includes: Four-chamber heart, RVOT and LVOT, [...] US PROCEDURES Hemoglobin A1c (12/20/2021 11:34 AM PERSONAL LINES ADVISOR) P athologist Signature Hemoglobin A1c, 5.2 4.2 - 5.6 12/20/2021 [place] B % 12:27 PM PERSONAL LINES ADVISOR Specimen Anatomical Collection Method Collection Time Receive d Time (Source) Location / / Volume Laterality Blood (Blood, 12/20/2021 11:34 12/20/2021 Venous) AM PERSONAL LINES ADVISOR 11:40 AM PERSONAL LINES ADVISOR Cheikh Gautam M.D. LAB BLOOD ADD-ON Performing Organization Address City/State/ZIP Code Phon e Number [facility]- [address] [place] [address] [facility] [place] [address] System in [place] [address] documented in this [...] documented as of this encounter Care Teams Storage Solutions Architect Relationship Specialty Start Date End Date Ben Arce M.D. PCP - General Family Medicine 01/13/[address] [place] [phone] documented as of this encounter
--- OUTSIDE RECORDS SUMMARY | 2022-07-14 08:18 | XMS_ITS | Encounter Summary ---
:1990 Author Organization [facility] Address [address] [place] [address] Care Team Providers Name Role Phone Ben Arce M.D. Primary Care Provider Reason for Visit Reason Comments Routine Visit 12+2weeks Sinusitis Concerns Outpatient (Routine) - Authorized Specialty Diagnoses / Procedures Referred By Contact Refer red To Contact Obstetrics and Cheikh Gautam [facility] william Gynecology MGonzalez Referral ID Status Reason Start Date Expiration Date Visits V isits Requested Authorized [id number] Authorized 12/20/2021 12/20/2022 15 15 Encounter Details Date Type Department Care Team Description 02/01/2022 Routine Department of Terrence Swenson [facility] Obstetrics and MGonzalez (Primary Dx) Gynecology in [address] [address] [place], [place] [phone] (Work) [phone] Social History Tobacco Use Types Packs/Day Years [...] do you attend restoration or Never 2021 sabianism services? 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 Most of the early symptoms of including [...] on filedocumented as of this encounter Results [id number] Plus-Sent Out Lab (02/01/2022 9:52 AM CDT) [...] Organization Address City/State/ZIP Code Phon e Number [facility] [address] [place] [address] [place] [address] [facility] [address] documented in this encounter Visit Diagnoses Diagnosis High Risk (HCC) - Primary documented in this encounter Additional Health Concerns Assessment Noted Time PHQ-9 Depression Total Score: 4 12/20/2021 10:52 AM CS T documented as of this encounter Care Teams Fur Stylist Relationship Specialty Start Date End Date Ben Arce M.D. PCP - General Family Medicine 01/13/[address] [place] [phone] documented as of this encounter
--- OUTSIDE RECORDS SUMMARY | 2022-07-14 08:18 | XMS_ITS | Encounter Summary ---
:1990 Author Organization [facility] Address [address] [place] [address] Care Team Providers Name Role Phone Ben Arce M.D. Primary Care Provider Reason for Visit Reason Comments Nausea Vomiting During Auth/Cert Specialty Diagnoses / Procedures Referred By Contact Refer red To Contact Diagnoses . Procedures . Referral ID Status Reason Start Date Expiration Date Visits Requ ested Visits Authorized [id number] 1 1 Encounter Details Date Type Department Care Team Description 04/28/2022 Hospital Encounter [facility] Rylie Mcdowell Encounte r [facility] Praguolive Hennessy Supervision Of [facility], [place] [id number] [facility] Normal Floor [place], [place] Unspecified [address] [place] [address] Trimester (HCC) [place], [place] [phone] [address] (Work) [phone] Social History Tobacco Use Types Packs/Day Years [...] do you attend scientology or Never 2021 gnosticism services? 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 0 tablet Take 1 tablet by 90 tablet 3 12/01/2021 vit27,calcium/iron/FA mouth daily. (multivitamin/mineral-pren atal) tablet breast pump device 1 each Cyclic [...] stated she has a clinic appointment at [facility] on Sunday with her normal doctor. [...] 8.0 04/28/2022 11:36 AM CDT NPRG Specific [place] 1.015 1.001 - 1.035 04/28/2022 11:36 AM [...] Organization Address City/State/ZIP Code Phon e Number [facility]- [facility] [address] [place], [place] [address] [facility] [address] Influenza A/B, SARS CoV-2, PCR, Rapid, [...] SARS-CoV-2 and Influenza A/B Reagent assay from [employer], which has received Emergency Use Authori zation(EUA) by the U.S. Food and Drug Administration . Fact sheets for this Emergency Use Autho rization (EUA) assay can be found at the following link s: For Healthcare Providers: https://www.fda.gov/media/638271/downloa d For Patients: https://www.fda.gov/media/246391/downloa d Infl A/B, SARS CoV-2, PCR, Source Swab, Nasopharynx 04/28/2022 9:02 AM CDT NPRG Specimen Anatomical Collection Method Collection Time Receive d Time (Source) Location / / Volume Laterality Varies 04/28/2022 8:48 AM 9:02 CDT AM CDT Rylie Mcdowell M.D. LAB MICROBIOLOGY - GENERAL O RDERABLES Performing Organization Address City/State/ZIP Code Phon e Number [facility]- [address] [place] [address] [place] [address] documented in this encounter Visit [...] Last Indicated Resolved Time COVID19 Pending 04/28/2022 04/28/202204/28/2022 9:02 AM CDT COVID19 Pending 04/28/2022 04/28/2022 04/28/2022 9:26 AM CDT Assessment Noted Time PHQ-9 Depression Total Score: 4 12/20/2021 10:52 AM CS T documented as of this encounter Care Teams Name Plate Stamping Machine Operator Relationship Specialty Start Date End Date Ben Arce M.D. PCP - General Family Medicine 01/13/[address] [place] [address] documented as of this encounter
--- OUTSIDE RECORDS SUMMARY | 2022-07-14 08:18 | XMS_ITS | Encounter Summary ---
:1990 Author Organization [facility] Address [address] [place] [address] Care Team Providers Name Role Phone Ben Arce M.D. Primary Care Provider Encounter Details Date Type Department Care Team Description 02/28/2022 Orders Only Department of Obstetrics and Gau Terrence zamarripa M.D. Gynecology in [address] [address] [place] [address] [phone] Social History Tobacco Use Types Packs/Day Years [...] do you attend quaker or Never 2021 pentecostal services? Do you [...] Date Recorded Female 12/02/2021 5:19 PM RN ON SITE documented as of this encounter Plan of Treatment Not on filedocumented as of this encounter Visit Diagnoses Not on filedocumented in this encounter Additional Health Concerns Assessment Noted Time PHQ-9 Depression Total Score: 4 12/20/2021 10:52 AM CS T documented as of this encounter Care Teams Baker Helper Relationship Specialty Start Date End Date Ben Arce M.D. PCP - General Family Medicine 01/13/[address] [facility] [place] [phone] documented as of this encounter
--- OUTSIDE RECORDS SUMMARY | 2022-07-14 08:18 | XMS_ITS | Encounter Summary ---
:1990 Author Organization [facility] Address [address] [place] [address] Care Team Providers Name Role Phone Ben Arce M.D. Primary Care Provider Encounter Details Date Type Department Care Team Description 12/20/2021 Silent Schedule Department of Terrence Swenson, Pregnanc y Examination Obstetrics and M.D. Test With Positive Gynecology in [address] [place], [place] [address] [address] [place], [place] [phone] [address] (Work) [phone] Social History Tobacco Use Types Packs/Day Years [...] do you attend mosque or Never 2021 taoism services? Do you [...] Date Recorded Female 12/02/2021 5:19 PM SUPERVISOR METAL FURNITURE FABRICATION documented as of this encounter Plan of Treatment Not on filedocumented as of this encounter Procedures Procedure Name Priority Date/Time Associated Comments Diagnosis US OB FIRST RAD - Routine 12/20/2021 10:50 Results fo r this TRIMESTER (most inpatients AM SUPERVISOR METAL FURNITURE FABRICATION Examination Test procedu re are in and all With Positive the results outpatients) Result section. documented in this encounter Results US OB First Trimester (12/20/2021 10:50 AM SUPERVISOR METAL FURNITURE FABRICATION) Anatomical Region Laterality Modality Body, Ultrasound OB RST LOS, Ultrasound ARZ LOS N/A Ultrasound Specimen (Source) Anatomical Collection Method Collection Time Re ceived Time Location / / Volume Laterality 12/20/2021 12:31 PM SUPERVISOR METAL FURNITURE FABRICATION Impressions 12/20/2021 12:34 PM SUPERVISOR METAL FURNITURE FABRICATION Single, viable, intrauterine gestation w ith CARLOS of August 14, 2022 (not consistent with menstrual dating). Narrative 12/20/2021 12:34 PM SUPERVISOR METAL FURNITURE FABRICATION EXAM: US OB FIRST TRIMESTER COMPARISON: None Physician: Dr. Swenson FINDINGS: Gestational age and CARLOS by LMP or OB/EHR assignment: 7 w 3 d, CARLOS: 08/05/2022 INTRAUTERINE Pole: Normal, [place]-Rump Length: 0 .50 cm Gestational Sac: Normal [...] 3 d, CARLOS: 08/05/2022 INTRAUTERINE Pole: Normal, [place]-Rump Length: 0 .50 cm Gestational Sac: Normal [...] documented as of this encounter Care Teams Mammal Control Agent Relationship Specialty Start Date End Date Ben Arce M.D. PCP - General Family Medicine 01/13/21 [address] [place] [address] documented as of this encounter
--- OUTSIDE RECORDS SUMMARY | 2022-07-14 08:18 | XMS_ITS | Encounter Summary ---
:1990 Author Organization [facility] Address [address] [place] [address] Care Team Providers Name Role Phone Ben Arce M.D. Primary Care Provider Encounter Details Date Type Department Care Team Description 03/31/2022 Hospital Encounter Department of Cheikh Gautam Laboratory Medicine Minoo Garcia ([facility]) in [place], [place] [address] [place] [phone] Social History Tobacco Use Types Packs/Day Years [...] do you attend anglican or Never 2021 sikhism services? Do you [...] at Date Recorded Female 12/02/2021 5:19 PM EMBEDDED SOFTWARE DESIGN ENGINEER documented as of this encounter Medications [...] a day. documented as of this encounter Plan of [...] M.D. LAB URINE ORDERABLES Performing Organization Address City/[facility]/ZIP Code Phon e Number [place] [address] [place], [place] [address] [facility] [place] [id number] ALT (Alanine Aminotransferase) (03/31/2022 5:31 PM CDT) Patholo gist Method Time Signature Alanine 10 7 - 45 03/31/2022 NPRG Aminotransferase U/L 5:59 PM CDT (ALT), P Specimen Anatomical Collection Method Collection Time Receive d Time (Source) Location / / Volume Laterality Blood (Blood, 03/31/2022 5:31 PM 03/31/20 5:34 Venous) CDT PM CDT Cheikh Gautam M.D. LAB BLOOD ADD-ON Performing Organization Address City/[facility] Code Phon e Number [place] [address] [place], [place] [address] [facility] [place] [id number] AST (Aspartate Aminotransferase) (03/31/2022 5:31 PM CDT) [facility] Method Time Signature Aspartate 13 8 - 43 03/31/2022 NPRG Aminotransferase U/L 5:59 PM CDT (AST), P Specimen Anatomical Collection Method Collection Time Receive d Time (Source) Location / / Volume Laterality Blood (Blood, 03/31/2022 5:31 PM 03/31/20 22 5:34 Venous) CDT PM CDT Cheikh Gautam M.D. LAB BLOOD ADD-ON Performing Organization Address City/[facility]/ZIP Code Phon e Number [place] [address] [place], [place] [address] [facility] [place] [phone] (ABNORMAL) Creatinine with Estimated GFR (03/31/2022 5:31 PM CDT) Analysis Performed At Patho logist Time Signature Creatinine 0.58 (L) 0.59 - 03/31/2022 NPRG 1.04 mg/dL 5:59 PM CDT eGFR-Black/Afri >90 >=60 03/31/2022 NPRG can Albanian mL/min/BSA 5:59 PM CDT Comment: ----ADDITIONAL INFORMATION---- [...] Organization Address City/State/ZIP Code Phon e Number [facility]- [address] [place], [place] [address] [facility] [place] [address] [facility] [address] [place] documented in this encounter Visit Diagnoses Diagnosis High Risk (HCC) documented in this encounter Additional Health Concerns Assessment Noted Time PHQ-9 Depression Total Score: 4 12/20/2021 10:52 AM CS T documented as of this encounter Care Teams Global Sales Executive Relationship Specialty Start Date End Date Ben Arce M.D. PCP - General Family Medicine 01/13/[address] [place] [address] documented as of this encounter
--- OUTSIDE RECORDS SUMMARY | 2022-07-14 08:18 | XMS_ITS | Encounter Summary ---
:1990 Author Organization [facility] Address [address] [place] [address] Care Team Providers Name Role Phone Ben Arce M.D. Primary Care Provider Reason for Referral Outpatient (Routine) - Authorized Specialty Diagnoses / Procedures Referred By Contact Refer red To Contact Diagnoses Pain Back Pain Neck Ben Arce M.D. External, Referring [address] [place] [address] Referral ID Status Reason Start Expiration Visits Visits Date Date Requested Authorized [id number] Authorized Patient 03/01/2022 03/01/2023 1 1 Preference Reason for Visit Reason Comments Outside Order Insurance Referral Encounter Details Date Type Department Care Team Description 03/01/2022 Clinical Communication Department of Ben Arce, Outs [facility] Order Family Medicine in [place] (Insurance Referral) [place] [address] [place] [address] [facility] [address] [phone] Social History Tobacco Use Types Packs/Day Years [...] do you attend baptist or Never 2021 yarsani services? Do you belong to any clubs or No 11/20/2021 organizations such as baptist groups, unions, fraPeerio or athletic groups, or school groups? How [...] Recorded Female 12/02/2021 5:19 PM DIRECTOR OF OPERATIONS documented as of this encounter Miscellaneous Notes Telephone Encounter - Jossie Ramos - 03/06/2022 8:41 AM CDT [facility] restricted referral faxed 03/02/22 with office visit notes. Also faxed [facility] restricted forms for OB care [facility]. Thank you, Jossie Referrals 03/02/22 Lore called from [facility] [phone]. This referral has been processed. 03/03/22sla. Telephone Encounter - Ben Arce M.D. - 03/01/2022 3:07 PM CDT Order signed. Telephone Encounter - Jossie Ramos - 03/01/2022 2:[address] Arce, ORDER/LAB/REFERRAL REQUEST: Name of test/referral/order requested: [facility] [place] i [id number] Reason for request: Back and neck pain Date needed: 02/26/22 Order pended to this encounter, once signed we can submit the Restricted [facility] referral for insurance. Thank you, Jossie Referrals 03/01/22 documented in this encounter Plan of Treatment Not on filedocumented as of this encounter Visit Diagnoses Diagnosis Pain Back - Primary Pain Neck documented in this encounter Additional Health Concerns Assessment Noted Time PHQ-9 Depression Total Score: 4 12/20/2021 10:52 AM CS T documented as of this encounter Care Teams Division Chair Relationship Specialty Start Date End Date Ben Arce M.D. PCP - General Family Medicine 01/13/[address] [place] [address] documented as of this encounter
--- OUTSIDE RECORDS SUMMARY | 2022-07-14 08:18 | XMS_ITS | Encounter Summary ---
:1990 Author Organization [facility] Address [address] [place] [address] Care Team Providers Name Role Phone Ben Arce M.D. Primary Care Provider Reason for Visit Reason Comments Hand Injury Encounter Details Date Type Department Care Team Description 02/11/2022 Emergency [place] [facility] Sigrid Forbes ontusion Hand Initial Department DMinoo Right (Primary Dx) [address] [place] [address] [phone] (Wo rk) Social History Tobacco Use Types [...] do you attend pentecostalism or Never 2021 baptism services? Do you [...] at Date Recorded Female 12/02/2021 5:19 PM SNACK STEWARDESS documented as of this encounter Last Filed [...] clinic by calling the appointment center at [phone]. Thank you for choosing [facility] for your care. It was a pleasure taking care of you today in our Emergency Department. AttachmentsThe following attachments cannot be sent through Care Everywhere.Hand Contusion Wjrv-ls-Elhe (Frisian)documented in this encounter Medications at Time [...] Forbes M.D. - 02/11/2022 9:44 PM CDT [facility] EMERGENCY DEPARTMENT ENCOUNTER Patient Name: Lulu Mata PCP: eBn Arce M.D. SUBJECTIVE CHIEF COMPLAINT/REASON FOR VISIT Hand Injury HISTORY OF PRESENT ILLNESS Lulu Mata is a 31 y.o. female presenting with right hand pain. She was at the [facility] today when her hand was shut into [...] as of this encounter Care Teams Clinical Nursing Instructor Relationship Specialty Start Date End Date Ben Arce M.D. PCP - General Family Medicine 01/13/[address] [place] [phone] documented as of this encounter
--- OUTSIDE RECORDS SUMMARY | 2022-07-14 08:18 | XMS_ITS | Encounter Summary ---
:1990 Author Organization [facility] Address [address] [place] [address] Care Team Providers Name Role Phone Ben Arce M.D. Primary Care Provider Reason for Visit Reason Comments Routine Visit Patient seen in L&D yesterda y for decreased movement and spotting Outpatient (Routine) - Authorized Specialty Diagnoses / Procedures Referred By Contact Refer red To Contact Obstetrics and Cheikh Gautam [facility] Gynecology M.DMaribell Referral ID Status Reason Start Date Expiration Date Visits V isits Requested Authorized [id number] Authorized 12/20/2021 12/20/2022 15 15 Encounter Details Date Type Department Care Team Description 04/18/2022 Routine Department of Rylie Mcdowell, 23 Weeks Gestation Obstetrics and M.D. ([facility]) Gynecology in [address] (Primary Dx) [place] [address] [address] [facility] [address] [place], [place] [phone] [address] (Work) [phone] Social History Tobacco Use Types Packs/Day Years [...] do you attend temple or Never 2021 pentecostal services? Do you [...] at Date Recorded Female 12/02/2021 5:19 PM PIN MAKER documented as of this encounter Last [...] documented as of this encounter Care Teams Communications Editor Relationship Specialty Start Date End Date Ben Arce M.D. PCP - General Family Medicine 01/13/[address] [facility] [address] documented as of this encounter
--- OUTSIDE RECORDS SUMMARY | 2022-07-14 08:18 | XMS_ITS | Encounter Summary ---
:1990 Author Organization [facility] Address [address] [place] [address] Care Team Providers Name Role Phone Ben [...] Expiration Date Visits Requ ested Visits Authorized [id number] 1 1 Encounter Details Date Type Department Care Team Description 04/17/2022 Hospital Encounter [facility] Rylie Mcdowell, 23 Weeks Gestation [facility] ([facility], [place] [address] [address] [place], [place] [phone] (Work) [phone] Social History Tobacco Use Types Packs/Day Years [...] do you attend sikh or Never 2021 episcopal services? Do you [...] at Date Recorded Female 12/02/2021 5:19 PM NUCLEAR WORKER TECHNICIAN documented as of this encounter Last [...] Category I tracing. No UTC's traced via Stuckey. RN palpated during one episode ofuterine cramping, [...] as of this encounter Care Teams Certified Ophthalmic Technologist Relationship Specialty Start Date End Date Ben Arce M.D. PCP - General Family Medicine 01/13/21 [address] [place] [phone] documented as of this encounter
--- OUTSIDE RECORDS SUMMARY | 2022-07-14 08:18 | XMS_ITS | Encounter Summary ---
:1990 Author Organization [facility] Address [address] [place] [address] Care Team Providers Name Role Phone Ben Arce M.D. Primary Care Provider Reason for Visit Reason Comments Hand Injury Medical Information Encounter Details Date Type Department Care Team Description 02/11/2022 Nurse Triage [facility] [employer] Rylie Hightower Hand Injury; Medical Medicine in [place], [place] [address] [facility] [address] [place] [address] [phone] Social History Tobacco Use Types Packs/Day Years [...] do you attend synagogue or Never 2021 moravian services? Do you [...] at Date Recorded Female 12/02/2021 5:19 PM SHOP SUPERINTENDENT documented as of this encounter Miscellaneous Notes [...] or deformed) Protocols used: HAND AND WRIST [id number] documented in this encounter Plan of Treatment Not on filedocumented as of this encounter Visit Diagnoses Not on filedocumented in this encounter Additional Health Concerns Assessment Noted Time PHQ-9 Depression Total Score: 4 12/20/2021 10:52 AM CS T documented as of this encounter Care Teams Insurance Rater Relationship Specialty Start Date End Date Ben Arce M.D. PCP - General Family Medicine 01/13/[address] [place] [address] documented as of this encounter
--- OUTSIDE RECORDS SUMMARY | 2022-07-14 08:18 | XMS_ITS | Encounter Summary ---
:1990 Author Organization [facility] Address [address] [place] [address] Care Team Providers Name Role Phone Ben Arce M.D. Primary Care Provider Reason for Visit Reason Comments Vomiting Pt presents with nausea and vomiting that began last evening at 1700. Has persisted all night. Pt is 6 weeks . Encounter Details Date Type Department Care Team Description 12/09/2021 Emergency [place] [facility] Valerie Malone, Nause a And Vomiting (Primary Dx); Department M.D. Less Than 8 Weeks Gestation [address] [place] [phone] Social History Tobacco Use Types Packs/Day Years [...] do you attend restorationism or Never 2021 bahai services? Do you [...] at Date Recorded Female 12/02/2021 5:19 PM CATERING CHEF documented as of this encounter Last Filed Vital Signs Vital Sign Reading Time Taken Comments Blood Pressure 126/87 12/09/2021 9:45 AM CATERING CHEF Pulse 95 12/09/2021 10:00 AM CATERING CHEF Temperature 37.2 ??C (99 ??F) 12/09/2021 10:00 AM CATERING CHEF Respiratory Rate 14 12/09/2021 8:29 AM CATERING CHEF Oxygen Saturation 99% 12/09/2021 10:00 AM CATERING CHEF Inhaled Oxygen Concentration - - Weight 68.3 kg (150 lb 9.2 oz) 12/09/2021 8:31 AM CATERING CHEF Height 155 cm (5' 1.02) 12/09/2021 8:31 AM CATERING CHEF Body Mass Index 28.43 12/09/2021 8:31 AM CATERING CHEF documented in this encounter Discharge Instructions Discharge InstructionsValerie Malone M.D. - 12/09/2021 9:29 AM CST If you are unable to keep yourself well hydrated at home, please feel free to return. RING CHEF AttachmentsThe following attachments cannot be sent through Care Everywhere. Morning Sickness (Frisian)documented in this encounter Medications at Time [...] normal. ASSESSMENT/PLAN IMPRESSION AND PLAN Vomiting with rciw-uv-yrmhdpeg dehydration during . I gave normal saline 1 L IV, envaegornp041 mg IV, Zofran 4 mg IV. She [...] 8 Weeks Gestation Valerie Malone M.D. 12/09/[address]34 RING CHEF documented in this encounter Plan of Treatment [...] 1,000 mL New Bag 12/09/2021 8:48 AM CATERING CHEF 1,000 mL 1000 mL/hr 1,000 mL, intravenous, at 1,000 mL/hr, Administer over 1 Hours, Once, On Sun12/09/21 at 0836, For 1 dose ondansetron (PF) injection 4 mg (ZOFRAN) Given 12/09/2021 9:31 AM CATERING CHEF 4 mg 4 mg, intravenous, Once, On Sun12/09/21 at 0921, For 1 dose pyridoxine (vitamin B6) injection 100 mg Given 12/09/2021 9:00 AM CATERING CHEF 100 mg 100 mg, intravenous, Once, On Sun12/09/21 at 0836, For 1 dose sodium chloride 0.9 % injection 10 mL Given 12/09/2021 8:45 AM CATERING CHEF 10 mL 10 mL, intravenous, As needed, [...] Recently Administered Medications Times are shown in CATERING CHEF. Scheduled Medication Order 12/07/2021 12/08/2021 12/09/2021 NaCl [...] injection documented in this encounter Care Teams Automatic Grinding Machine Operator Relationship Specialty Start Date End Date Ben Arce M.D. PCP - General Family Medicine 01/13/[address] [facility] [place] [phone] documented as of this encounter
--- OUTSIDE RECORDS SUMMARY | 2022-07-14 08:18 | XMS_ITS | Encounter Summary ---
:1990 Author Organization [facility] Address [address] [place] [address] Care Team Providers Name Role Phone Ben Arce M.D. Primary Care Provider Reason for Visit Reason Comments Routine Visit 16 2/7 wk ob check pelvic/lo wer back pain 7/10 pain scale, needs referral to chiropract or Outpatient (Routine) - Authorized Specialty Diagnoses / Procedures Referred By Contact Refer red To Contact Obstetrics and Cheikh Gautam [facility] william Gynecology M.DMaribell Referral ID Status Reason Start Date Expiration Date Visits V isits Requested Authorized [id number] Authorized 12/20/2021 12/20/2022 15 15 Encounter Details Date Type Department Care Team Description 03/01/2022 Routine Department of Terrence Swenson Pregnan cy Examination Test With Positive Result (HCC) (Primary Dx); Obstetrics and M.D. Encounter For Supervision Of Normal Preg roberta Unspecified Trimester (HCC) Gynecology in [address] [place], [place] [address] [place], [place] [phone] [address] (Work) [phone] Social History Tobacco Use Types Packs/Day Years [...] do you attend christianity or Never 2021 episcopalian services? Do you belong to any clubs or No 11/20/2021 organizations such as christianity groups, unions, fraSeeVolution or athletic groups, or school groups? How [...] at Date Recorded Female 12/02/2021 5:19 PM RACE CAR DRIVER documented as of this encounter Last [...] documented as of this encounter Care Teams Entrepreneurial Finance Professor Relationship Specialty Start Date End Date Ben Arce M.D. PCP - General Family Medicine 01/13/[address] [place] [phone] documented as of this encounter
--- OUTSIDE RECORDS SUMMARY | 2022-07-14 08:19 | XMS_ITS | Encounter Summary ---
:1990 Author Organization [facility] Address [address] [place] [address] Care Team Providers Name Role Phone Ben Arce M.D. Primary Care Provider Reason for Referral Outpatient (Routine) - Closed Specialty Diagnoses / Procedures Referred By Contact Refer red To Contact Obstetrics and Diagnoses Examination Test With Positive Result (HCC) Terrence Swenson M.D. [facility] [address] [phone] Referral ID Status Reason Start Date Expiration Date Visits Requ ested Visits Authorized [id number] Closed 12/01/2021 12/01/2022 1 1 COUNTER ATTENDANT Specialty Diagnoses / Procedures Referred By Contact Refer red To Contact Terrence Swenson M.D. [facility] Region [address] [place] [phone] Referral ID Status Reason Start Date Expiration Date Visits Requ ested Visits Authorized COUNTER ATTENDANT Encounter Details Date Type Department Care Team Description 12/01/2021 Clinical Communication Department of Terrence Swenson Obstetrics and [place] Gynecology in [address] [place], [place] [address] [place] [address] [place], [place] [phone] (Work) [phone] Social History Tobacco Use Types Packs/Day Years [...] you attend oriental orthodox or Never 2021 denominational services? Do you [...] Date Recorded Female 12/02/2021 5:19 PM FOOD COUNTER ATTENDANT documented as of this encounter Miscellaneous [...] following references were used: Nursing Clinical Judgement COUNTER ATTENDANT Telephone Encounter - Anisa White - 12/01/2021 12:26 PM CST Reason for Communication: Patient calling, had a positive home test and a clinic confirmedtest. LMP unknown. Patient is looking to transfer care from [place] Current Can Nursing/Provider leave a detailed message?: yes Did the patient refuse triage through Nurse line? (for symptom based concerns): Action Needed: Name of Medication (if relevant): Please send all scheduling replies to scheduling pool. COUNTER ATTENDANT documented in this encounter Plan of [...] US OB First Trimester (12/20/2021 10:50 AM FOOD COUNTER ATTENDANT) Anatomical Region Laterality Modality Body, Ultrasound OB RST LOS, Ultrasound ARZ LOS N/A Ultrasound Specimen (Source) Anatomical Collection Method Collection Time Re ceived Time Location / / Volume Laterality 12/20/2021 12:31 PM FOOD COUNTER ATTENDANT Impressions 12/20/2021 12:34 PM FOOD COUNTER ATTENDANT Single, viable, intrauterine gestation w ith CARLOS of August 14, 2022 (not consistent with menstrual dating). Narrative 12/20/2021 12:34 PM FOOD COUNTER ATTENDANT EXAM: US OB FIRST TRIMESTER COMPARISON: None Physician: Dr. Swenson FINDINGS: Gestational age and CARLOS by LMP or OB/EHR assignment: 7 w 3 d, CARLOS: 08/05/2022 INTRAUTERINE Pole: Normal, [place]-Rump Length: 0 .50 cm Gestational Sac: Normal [...] 3 d, CARLOS: 08/05/2022 INTRAUTERINE Pole: Normal, [place]-Rump Length: 0 .50 cm Gestational Sac: Normal [...] (HCC) documented in this encounter Care Teams Housing Court Judge Relationship Specialty Start Date End Date Ben Arce M.D. PCP - General Family Medicine 01/13/[address] [place], [place] [address] documented as of this encounter
--- OUTSIDE RECORDS SUMMARY | 2022-07-14 08:19 | XMS_ITS | Encounter Summary ---
:1990 Author Organization [facility] Address [address] [place] [address] Care Team Providers Name Role Phone Ben [...] Type Department Care Team Description 03/01/2021 Emergency [place] Emergency Valerie Malone Contu sion Head Initial (Primary Dx); Department [place] Strain Neck Initial [address] [place] [phone] Social History Tobacco Use Types Packs/Day Years [...] do you attend yazidi or Never 2021 roman catholic services? Do [...] at Date Recorded Female 12/02/2021 5:19 PM DISCHARGING MACHINE OPERATOR documented as of this encounter [...] through Care Everywhere. Facial or Scalp Contusion (Latvian)documented in this encounter Medications at Time [...] ondansetron ODT disintegrating tablet 4 mg (ZOFRAN-ODT) ([facility] ED) 1101 (Given - Provider: Nita Rao R.N.) 4 mg, oral, Once, On Sun03/01/21 at 1058 , For 1 dose, When splitting ODT at bedside, handle with gloves and a pill splitter to prevent moisture contact. documented in this encounter Care Teams Sheet Cutter Relationship Specialty Start Date End Date Ben Arce M.D. PCP - General Family Medicine 01/13/[address] [place] [phone] documented as of this encounter
--- OUTSIDE RECORDS SUMMARY | 2022-07-14 08:19 | XMS_ITS | Encounter Summary ---
:1990 Author Organization [facility] Address [address] [place] [address] Care Team Providers Name Role Phone Ben Arce M.D. Primary Care Provider Reason for Referral Specialty Diagnoses / Procedures Referred By Contact Refer red To Contact Ben Arce M.D. [facility] Region [address] [place] [address] Referral ID Status Reason Start Date Expiration Date Visits Requ ested Visits Authorized IT CONTROL OFFICER Encounter Details Date Type Department Care Team Description 11/20/2021 Orders Only [facility] PCP HLTH MNT Kimberly Arce M.D. [address] [place], [place] [phone] (Wo rk) Social History [...] do you attend yazdanism or Never 2021 roman catholic services? Do [...] Date Recorded Female 12/02/2021 5:19 PM CREDIT CONTROL OFFICER documented as of this encounter Plan of Treatment Scheduled Referrals Name Type Priority Associated Order Schedule Diagnoses Covid immunization Outpatient Referral Routine Ex pected: office visit Booster 022 (Approximate), Expires: 11/20/2022 documented as of this encounter Visit Diagnoses Not on filedocumented in this encounter Care Teams Equine Dentist Relationship Specialty Start Date End Date Ben Arce M.D. PCP - General Family Medicine 01/13/[address] [place] [phone] documented as of this encounter
--- OUTSIDE RECORDS SUMMARY | 2022-07-14 08:19 | XMS_ITS | Encounter Summary ---
:1990 Author Organization [facility] Address [address] [place] [address] Care Team Providers Name Role Phone Ben Arce M.D. Primary Care Provider Reason for Visit Reason Comments Nausea OTHER Breast pain Vomiting Positive at home test X 4 Encounter Details Date Type Department Care Team Description 11/24/2021 Comprehensive Visit Department of Grant Jones ncsharyn Test (Primary Dx); Obstetrics and J, MIGRATION AGENT, Counseling Bi rth Control; Gynecology in [facility] C.N.P., M.S.N. Pap Smear Examination [place], [place] [address] [place] [phone] Social History Tobacco Use Types Packs/Day Years [...] do you attend episcopalian or Never 2021 episcopalian services? Do you [...] at Date Recorded Female 12/02/2021 5:19 PM COSMETIC CHEMIST documented as of this encounter Last Filed Vital Signs Vital Sign Reading Time Taken Comments Blood Pressure 166/67 11/24/2021 1:50 PM COSMETIC CHEMIST Pulse 118 11/24/2021 1:49 PM COSMETIC CHEMIST Temperature 37.2 ??C (99 ??F) 11/24/2021 1:49 PM COSMETIC CHEMIST Respiratory Rate - - Oxygen Saturation - - Inhaled Oxygen Concentration - - Weight 71.6 kg (157 lb 12.8 oz) 11/24/2021 1:49 PM COSMETIC CHEMIST Height - - Body Mass Index 29.79 11/08/2021 12:40 PM COSMETIC CHEMIST documented in this encounter Progress Notes Grant [...] STD testing. Grant Jones APRN, Reji.NDany, M.S.N. ETIC CHEMIST documented in this encounter Miscellaneous Notes Addendum Note - Grant Jones APRN, Reji.N.P., M.S.N. - 11/24/2021 1:15 PM COSMETIC CHEMIST Addended by: GRANT JONES on: 11/29/2021 08:00 AM Modules accepted: Orders ETIC CHEMIST documented in this encounter Plan of Treatment Not on filedocumented as of this encounter Procedures Procedure Name Priority Date/Time Associated Diagnosis Comme nts THINPREP W/HPV Routine 11/24/2021 4:49 PM Pap Smear Results for this CO-TEST SCREEN COSMETIC CHEMIST Examination procedure are in the results section. HUMAN CHORIONIC Routine 11/24/2021 2:00 PM Test Resu lts for this GONADOTROPIN (HCG), COSMETIC CHEMIST procedur e are in ROBERTA, the results section. HPV WITH GENOTYPING, Routine 11/24/2021 1:53 PM R esults for this PCR, THINPREP COSMETIC CHEMIST procedure are in the results section. TEST, POCT, Routine 11/24/2021 1:14 PM Samira t Results for this U (LAB) COSMETIC CHEMIST procedure are i n the results section. documented in this encounter Results ThinPrep w/HPV Co-Test Screen (11/24/2021 4:49 PM COSMETIC CHEMIST) Component Value Ref Test Analysis Performed Pathologis t Range Method Time At Signature 11/28/2021 HK 3:47 PM COSMETIC CHEMIST Report DEBRA Boles(ASCP) 11/28/2021 HK electronically 3:47 PM signed by COSMETIC CHEMIST I verify that I have examined all relevant slides/materials for the specimen(s) and rendered or confirmed the diagnosis. Gross Description Received specimen 11/28/2021 HK Y in a ThinPrep 3:47 PM vial. COSMETIC CHEMIST Pap Test Source Cervical/Endocervi 11/28/2021 HKCY lizbeth 3:47 PM COSMETIC CHEMIST Interpretation Cervical/Endocervical ??(ThinPrep): 11/28/2021 HKCY 3:47 PM Satisfactory for Evaluation COSMETIC CHEMIST Negative for Intraepithelial Lesion or Malignancy Shift [...] Laterality Varies 11/24/2021 4:49 PM 6:36 (Cervix/Endocerv COSMETIC CHEMIST AM COSMETIC CHEMIST ix) Narrative This result has an attachment that is no t available. Reji Polanco APRN.N.P., M.S.N. LAB PAP PATHDX ORD ERABLES Performing Organization Address City/State/ZIP Code Phon e Number [facility]- [address] [place] [address] [facility] HK[facility] [place] [address] [facility] Cytology 10[address] [facility] (ABNORMAL) hCG (Human Chorionic Gonadotropin), Quantitative, (11/24/2021 2:00 PM COSMETIC CHEMIST) athologist Signature HCG, 6.9 (H) <5 IU/L 11/24/2021 NPRG Quantitative, 2:22 PM COSMETIC CHEMIST , P Comment: Biotin has been identified by the meir toro as a potential interfering substance. ??Higher concentr ations of biotin may be found in multivitamins, hair/nail supple ments, and workout supplements. ??If the result does not [facility] clinical observations, repeat testing after patient refrains fr om the use of supplements for at least 12 hours. Specimen Anatomical Collection Method Collection Time Receive d Time (Source) Location / / Volume Laterality Blood (Blood, 11/24/2021 2:00 PM 11/24/19 2:01 Venous) COSMETIC CHEMIST PM COSMETIC CHEMIST Grant Jones APRN, C.N.P., M.S.N. LAB BLOOD ADD-ON Performing Organization Address City/State/ZIP Code Phon e Number [facility]- [address] [place], [place] [address] [place] [address] [place] [address] [place] [address] [place] HPV with Genotyping, PCR, ThinPrep (11/24/2021 1:53 PM COSMETIC CHEMIST) athologist Signature HPV with Negative Negative 11/25/2021 MK[facility] Genotyping, 3:27 PM COSMETIC CHEMIST ThinPrep, PCR Comment: Negative for high risk HPV by nucleic ac id amplification. ??The following high risk HPV types were not detected: 16, 18, 31, 33, 35, 39, 45, 51, 52, 56, 58, 59, 66, and 68 Specimen Anatomical Collection Method Collection Time Receive d Time (Source) Location / / Volume Laterality Varies 11/24/2021 1:53 PM 6:36 COSMETIC CHEMIST AM COSMETIC CHEMIST Reji Polanco APRN.N.Anna., M.S.N. LAB MICROBIOLOGY - GENERAL ORDERABLES Performing Organization Address City/[facility]/ZIP Code Phon e Number [facility]- [address] [place] [address] [place] [address] System in [place] 10[address] [facility] Test, POCT, Urine (lab) (11/24/2021 1:14 PM COSMETIC CHEMIST) P athologist Signature Negative 11/24/2021 NPRG Test, POCT, U 1:21 PM COSMETIC CHEMIST Specimen Anatomical Collection Method Collection Time Receive d Time (Source) Location / / Volume Laterality Urine (Urine, 11/24/2021 1:14 PM 11/24/19 1:14 Clean Catch) COSMETIC CHEMIST PM COSMETIC CHEMIST Grant Jones APRN, C.N.P., M.S.N. LAB POCT ORDERABLE S - DEVICE Performing Organization Address City/[facility]/ZIP Code Phon e Number [facility]- [address] [place] [address] [place] [address] LAB NPRG [facility] [place] [address] documented in this encounter Visit Diagnoses Diagnosis Test - Primary Counseling Control Pap Smear Examination documented in this encounter Care Teams Woodyard Operator Relationship Specialty Start Date End Date Ben Arce M.D. PCP - General Family Medicine 01/13/[address] [place] [phone] documented as of this encounter
--- OUTSIDE RECORDS SUMMARY | 2022-07-14 08:19 | XMS_ITS | Encounter Summary ---
:1990 Author Organization [facility] Address [address] [place] [address] Care Team Providers Name Role Phone Elsewhere, Pcp Primary Care Provider Unavailable Reason for Visit Reason Comments Pain In Limb Follow up on left elbow Outpatient (Routine) - Closed Specialty Diagnoses / Procedures Referred By Contact Refer red To Contact Family Medicine Zack Macdonald M.D. [facility] Region [address] [place] [phone] Referral ID Status Reason Start Date Expiration Date Visits Requ ested Visits Authorized [id number] Closed 12/16/2020 12/16/2021 1 1 Encounter Details Date Type Department Care Team Description 12/24/2020 Office Visit Department of Donya Fitzgerald Pain Elbow Left Medicine in [facility], FATOU, C.N.P., (Primary Dx) [place], [place] D.N.P. [address] [place] [phone] Social History Tobacco Use Types Packs/Day Years [...] do you attend mormonism or Never 2021 adventist services? Do you [...] Date Recorded Female 12/02/2021 5:19 PM RADIO ANTENNA INSTALLER documented as of this encounter Last Filed Vital Signs Vital Sign Reading Time Taken Comments Blood Pressure 128/80 12/24/2020 3:26 PM RADIO ANTENNA INSTALLER Pulse 80 12/24/2020 3:26 PM RADIO ANTENNA INSTALLER Temperature 36.4 ??C (97.5 ??F) 12/24/2020 3:26 PM RADIO ANTENNA INSTALLER Respiratory Rate - - Oxygen Saturation 97% 12/24/2020 3:26 PM RADIO ANTENNA INSTALLER Inhaled Oxygen Concentration - - Weight 72.1 kg (158 lb 15.2 oz) 12/24/2020 3:26 PM RADIO ANTENNA INSTALLER Height - - Body Mass Index 31.21 12/14/2020 5:24 PM RADIO ANTENNA INSTALLER documented in this encounter Progress Notes [...] plan of care. Donya Lind, MIGUELANGEL, DNP O ANTENNA INSTALLER documented in this encounter Plan of Treatment Not on filedocumented as of this encounter Visit Diagnoses Diagnosis Pain Elbow Left - Primary documented in this encounter Care Teams Wholesale Representative Relationship Specialty Start Date End Date Elsewhere, Pcp PCP - General Family Medicine 01/08/18 01/12/21 documented as of this encounter
--- OUTSIDE RECORDS SUMMARY | 2022-07-14 08:19 | XMS_ITS | Encounter Summary ---
:1990 Author Organization [facility] Address [address] [place] [address] Care Team Providers Name Role Phone Elsewhere, Pcp Primary Care Provider Unavailable Encounter Details Date Type Department Care Team Description 01/07/2021 Hospital Encounter Department of Renae, Zack Hammer, Pain Elbow Left Radiology, [facility], in [place] [address] [place], [place] [address] [place] [address] [place], [place] [phone] (Work) [phone] Social History Tobacco Use Types Packs/Day Years [...] do you attend orthodoxy or Never 2021 yarsani services? Do you [...] at Date Recorded Female 12/02/2021 5:19 PM CYLINDER DIE MACHINE OPERATOR documented as of this encounter [...] Left documented in this encounter Care Teams Sausage Mixer Relationship Specialty Start Date End Date Elsewhere, Pcp PCP - General Family Medicine 01/08/18 01/12/21 documented as of this encounter
--- OUTSIDE RECORDS SUMMARY | 2022-07-14 08:19 | XMS_ITS | Encounter Summary ---
:1990 Author Organization [facility] Address [address] [place] [address] Care Team Providers Name Role Phone Ben Arce M.D. Primary Care Provider Reason for Visit Reason Comments Other swollen and sore throat and fluid in ears right more than the left. was just here on Sunday and saw Donya for her arm Encounter Details Date Type Department Care Team Description 01/13/2021 Office Visit Department of Ben Metzger M.D. Sore Throat (Primary Medicine in [place] [address] Dx) [place], [place] [address] [place] [address] [place], [place] [phone] (Work) [phone] Social History Tobacco Use Types Packs/Day Years [...] do you attend baptism or Never 2021 hinduism services? Do you [...] at Date Recorded Female 12/02/2021 5:19 PM PRODUCTION WOOD CRAFTSMAN documented as of this encounter Last Filed [...] Body Mass Index 31.39 12/14/2020 5:24 PM PRODUCTION WOOD CRAFTSMAN documented in this encounter Progress Ben Espinal [...] Code Phon e Number [facility]- [address] [place] [address] [place] [address] [address] documented in this encounter Visit Diagnoses Diagnosis Sore Throat - Primary documented in this encounter Care Teams Stapler Coil Unit Relationship Specialty Start Date End Date Ben rAce M.D. PCP - General Family Medicine 01/13/[address] [place] [phone] documented as of this encounter
--- OUTSIDE RECORDS SUMMARY | 2022-07-14 08:19 | XMS_ITS | Encounter Summary ---
:1990 Author Organization [facility] Address [address] [place] [address] Care Team Providers Name Role Phone Elsewhere, Pcp Primary Care Provider Unavailable Reason for Referral Outpatient (Routine) - Closed Specialty Diagnoses / Procedures Referred By Contact Refer red To Contact Family Medicine Donya Lind APRN, [facility] C.N.P., D.N.P. Referral ID Status Reason Start Date Expiration Date Visits Requ ested Visits Authorized [id number] Closed 01/07/2021 01/07/2022 1 1 Reason for Visit Reason Comments Follow-up Follow up Elbow Encounter Details Date Type Department Care Team Description 01/07/2021 Office Visit Department of Donya Fitzgerald Pain Elbow Left (Primary Dx); Medicine in [facility] FTAOU Lu C.N.PMaribell, Rhinitis Allergic [place], [place] D.N.P. [address] [place] [address] Social History Tobacco Use Types Packs/Day Years [...] do you attend denominational or Never 2021 pentecostal services? Do you [...] at Date Recorded Female 12/02/2021 5:19 PM STATISTICAL MODELER documented as of this encounter Last Filed [...] Body Mass Index 31.21 12/14/2020 5:24 PM STATISTICAL MODELER documented in this encounter Progress Notes Donya [...] meds for pain management. She works at [employer] and has continued to wear sling at [...] plan of care as outlined. Donya Lind, DOCK BOSS, DNP documented in this encounter Plan of Treatment Scheduled Referrals Name Type Priority Associated Diagnoses Order [facility] Family Medicine Outpatient Referral Routine Expec taurus: office visit 02/07/2021 (clinic) (Approximate), Expires: 01/08/2024 documented as of this encounter Visit Diagnoses Diagnosis Pain Elbow Left - Primary Rhinitis Allergic documented in this encounter Care Teams Veneer Layer Relationship Specialty Start Date End Date Elsewhere, Pcp PCP - General Family Medicine 01/08/18 01/12/21 documented as of this encounter
--- OUTSIDE RECORDS SUMMARY | 2022-07-14 08:19 | XMS_ITS | Encounter Summary ---
:1990 Author Organization [facility] Address [address] [place] [address] Care Team Providers Name Role Phone Ben Arce M.D. Primary Care Provider Reason for Visit Reason Comments Other right hand injury---yesterda y Encounter Details Date Type Department Care Team Description 05/18/2021 Office Visit Department of Alexander Estrella Pain Hand Right (Primary Dx); Medicine in [facility] Contusion Hand Initial [place], [place] [address] [place] [phone] Social History Tobacco Use Types Packs/Day Years [...] do you attend yarsanism or Never 2021 protestant services? Do you [...] at Date Recorded Female 12/02/2021 5:19 PM FACILITY PRACTICE SPECIALIST documented as of this encounter Last [...] She had pain limiting her making a chitimacha with the thumb and index finger. No [...] Right documented in this encounter Care Teams Stone Setter Metal Optical Frames Relationship Specialty Start Date End Date Ben Arce M.D. PCP - General Family Medicine 01/13/[address] [place] [phone] documented as of this encounter
--- OUTSIDE RECORDS SUMMARY | 2022-07-14 08:19 | XMS_ITS | Encounter Summary ---
:1990 Author Organization [facility] Address [address] [place] [address] Care Team Providers Name Role Phone Ben Arce M.D. Primary Care Provider Reason for Visit Reason Comments Nurse Visit NOB ED/INTAKE APPT Encounter Details Date Type Department Care Team Description 12/08/2021 Virtual Visit Department of Terrence Swenson M.D. [address] [address] Encounter For Supervision Of Other Stella l Unspecified Trimester (Primary Dx); Obstetrics and Autumn Patel R.N. [address] [address] Examination Test With Positive Result Gynecology in [place], [place] [address] [address] Social History Tobacco Use Types [...] do you attend mormon or Never 2021 methodist services? Do you [...] at Date Recorded Female 12/02/2021 5:19 PM PELLET MACHINE OPERATOR documented as of this encounter Patient Instructions [...] Provided Today: Beginnings: , , and [facility] brochure-[facility] [place] of [facility] ET MACHINE OPERATOR documented in this encounter Progress Notes Autumn Patel R.N. - 12/08/2021 1:30 PM CST Consult conducted via real-time audio/video technology by Autumn Patel R.N. in [facility] to the patient in Patient's Home. episode opened-please see history for details. Conceived with Nexplanon in place-this was removed after positive Beta Hcg. 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 Denies concerns. Encouraged to call with questions or concerns. ET MACHINE OPERATOR documented in this encounter Plan of Treatment Not on filedocumented as of this encounter Results Hepatitis C Virus Antibody Screen (12/20/2021 11:34 AM PELLET MACHINE OPERATOR) athologist Signature HCV Ab Scrn Negative Negative 12/21/2021 [facility] , S 8:10 AM PELLET MACHINE OPERATOR Comment: Rrkjda-jj-cemjyy ratio is <1.00 . Specimen Anatomical Collection Method Collection Time Receive d Time (Source) Location / / Volume Laterality Blood (Blood, 12/20/2021 11:34 12/21/2021 6:40 Venous) AM PELLET MACHINE OPERATOR AM PELLET MACHINE OPERATOR Cheikh Gautam M.D. LAB MICROBIOLOGY - BLOOD ORD ERABLES Performing Organization Address City/State/ZIP Code Phon e Number [facility] [address] [place] [phone] [facility] [place] [address] Laboratory Medicine and Pathology [address] [place] Syphilis Total Ab w/ Reflex, Serum (12/20/2021 11:34 AM PELLET MACHINE OPERATOR) [facility] Method Time Signature Syphilis Nonreactive Nonreactive 12/21/2021 [facility] Total Ab w/ 11:40 AM PELLET MACHINE OPERATOR Reflex Comment: No serologic evidence of infection with T. pallidum (syphilis). ??Repeat testing may be cons idered in patients with suspected acute or primary syphilis in 2-4 weeks. For additional information on interpreta tion of the syphilis reverse algorithm and resul ts, see: [email or web address] Specimen Anatomical Collection Method Collection Time Receive d Time (Source) Location / / Volume Laterality Blood (Blood, 12/20/2021 11:34 12/20/2021 6:27 Venous) AM PELLET MACHINE OPERATOR PM PELLET MACHINE OPERATOR Cheikh Gautam M.D. LAB BLOOD ADD-ON Performing Organization Address City/[facility] Phon e Number [facility]- [address] [place] [phone] [facility] [address] Rubella Antibodies, IgG (12/20/2021 11:34 AM PELLET MACHINE OPERATOR) athologist Signature Rubella Ab, Positive 12/21/2021 [facility] IgG, S 11:40 AM PELLET MACHINE OPERATOR Comment: Results suggest response to immunization or prior exposure to the virus. ----REFERENCE VALUE---- Vaccinated: Positive (>=1.0 AI) Unvaccinated: Negative (<=0.7 AI) Rubella IgG Antibody Index 2.6 12/21/2021 11 :40 AM PELLET MACHINE OPERATOR [facility] Specimen Anatomical Collection Method Collection Time Receive d Time (Source) Location / / Volume Laterality Blood (Blood, 12/20/2021 11:34 12/20/2021 6:27 Venous) AM PELLET MACHINE OPERATOR PM PELLET MACHINE OPERATOR Cheikh Gautam M.D. LAB MICROBIOLOGY - BLOOD ORD ERABLES Performing Organization Address City/State/ZIP Code Phon e Number [facility]- [address] [place] [phone] [place] [address] System [address] HIV-1/-2 Ag and Ab Scrn, Plasma (12/20/2021 11:34 AM PELLET MACHINE OPERATOR) P athologist Signature HIV Ag/Ab Negative Negative 12/21/2021 [facility] Scrn, 11:40 AM PELLET MACHINE OPERATOR P Comment: Negative result does not rule out HIV in fection. If exposure to HIV infection occurred <14 d ays ago, contact the laboratory to request additi on of HIV-1 RNA detection / quantification test. HIV-1 p24 Ag Scrn, P Negative Negative 12/21/2021 11:40 AM PELLET MACHINE OPERATOR CA Comment: Negative result does not rule out HIV in fection. If exposure to HIV infection occurred <14 d ays ago, contact the laboratory to request additi on of HIV-1 RNA detection / quantification test. HIV-1 Ab Scrn, P Negative Negative 12/21/2021 11: 40 AM PELLET MACHINE OPERATOR CA Comment: Negative result does not rule out HIV in fection. If exposure to HIV infection occurred <14 d ays ago, contact the laboratory to request additi on of HIV-1 RNA detection / quantification test. HIV-2 Ab Scrn, P Negative Negative 12/21/2021 11: 40 AM PELLET MACHINE OPERATOR [facility] Comment: Negative result does not rule out HIV in fection. If exposure to HIV infection occurred <14 d ays ago, contact the laboratory to request additi on of HIV-1 RNA detection / quantification test. Specimen Anatomical Collection Method Collection Time Receive d Time (Source) Location / / Volume Laterality Blood (Blood, 12/20/2021 11:34 12/20/2021 6:27 Venous) AM PELLET MACHINE OPERATOR PM PELLET MACHINE OPERATOR Cheikh Gautam M.D. LAB MICROBIOLOGY - BLOOD ORD ERAKAMALJIT Performing Organization Address City/State/ZIP Code Phon e Number [facility]- [address] [place] [address], [place] [phone] [place] [address] System in [place] HBs Antigen , Serum (12/20/2021 11:34 AM PELLET MACHINE OPERATOR) [facility] Method Time Signature HBs Antigen Non reactive Non reactive 12/20/2021 [facility] , S 4:50 PM PELLET MACHINE OPERATOR Specimen Anatomical Collection Method Collection Time Receive d Time (Source) Location / / Volume Laterality Blood (Blood, 12/20/2021 11:34 12/20/2021 3:49 Venous) AM PELLET MACHINE OPERATOR PM PELLET MACHINE OPERATOR Cheikh Gautam M.D. LAB MICROBIOLOGY - BLOOD ORD ERAKAMALJIT Performing Organization Address City/State/ZIP Code Phon e Number [facility]- [address] [place] [address] [facility] [place], [place] [id number] [place] [address] (ABNORMAL) CBC without Differential (12/20/2021 11:34 AM PELLET MACHINE OPERATOR) [facility] Method Time Signature Hemoglobin 14.1 11.6 - 12/20/2021 [facility] 15.0 g/dL 11:44 AM PELLET MACHINE OPERATOR Hematocrit 41.0 35.5 - 12/20/2021 [facility] 44.9 % 11:44 AM PELLET MACHINE OPERATOR Erythrocytes 4.91 3.92 - 12/20/2021 [facility] 5.13 11:44 AM PELLET MACHINE OPERATOR x10(12)/L MCV 83.5 78.2 - 12/20/2021 [facility] 97.9 fL 11:44 AM PELLET MACHINE OPERATOR RBC Distrib Width 11.7 (L) 12.2 - 12/20/2021 [facility] 16.1 % 11:44 AM PELLET MACHINE OPERATOR Platelet Count 360 157 - 371 12/20/2021 [facility] x10(9)/L 11:44 AM PELLET MACHINE OPERATOR Leukocytes 11.1 (H) 3.4 - 9.6 12/20/2021 [facility] x10(9)/L 11:44 AM PELLET MACHINE OPERATOR Specimen Anatomical Collection Method Collection Time Receive d Time (Source) Location / / Volume Laterality Blood (Blood, 12/20/2021 11:34 12/20/2021 Venous) AM PELLET MACHINE OPERATOR 11:40 AM PELLET MACHINE OPERATOR Cheikh Gautam M.D. LAB BLOOD ADD-ON Performing Organization Address City/State/ZIP Code Phon e Number [facility]- [address] [place] [facility] [place] [address] [place] [address] System in [place] [address] Antibody Screen, RBC (with reflex Antibody ID) (12/20/2021 11:34 AM PELLET MACHINE OPERATOR) P athologist Signature Antibody Screen NEG 12/20/2021 [facility] 5:16 PM PELLET MACHINE OPERATOR Specimen Anatomical Collection Method Collection Time Receive d Time (Source) Location / / Volume Laterality Blood (Blood, 12/20/2021 11:34 12/20/2021 3:49 Venous) AM PELLET MACHINE OPERATOR PM PELLET MACHINE OPERATOR Cheikh Gautam M.D. LAB BLOOD BANK TEST ORDERABL ES Performing Organization Address City/[facility]/ZIP Code Phon e Number [facility]- [address] [place] [address] [facility] - [address] ABORh, RBC (12/20/2021 11:34 AM PELLET MACHINE OPERATOR) P athologist Signature ABO Group O 12/20/2021 5:16 [facility] PM PELLET MACHINE OPERATOR Rh Type POS 12/20/2021 5:16 [facility] PM PELLET MACHINE OPERATOR Specimen Anatomical Collection Method Collection Time Receive d Time (Source) Location / / Volume Laterality Blood (Blood, 12/20/2021 11:34 12/20/2021 3:51 Venous) AM PELLET MACHINE OPERATOR PM PELLET MACHINE OPERATOR Cheikh Gautam M.D. LAB BLOOD BANK TEST ORDERABL ES Performing Organization Address City/State/ZIP Code Phon e Number [facility]- [address] [place] [address] [facility] - [address] Bacterial Culture, Aerobic + Susc, Urine (12/20/2021 11:26 AM PELLET MACHINE OPERATOR) [facility] Method Time Signature Urine Culture No growth 12/21/2021 [facility] after 1 day 8:40 AM PELLET MACHINE OPERATOR of incubation. Specimen Anatomical Collection Method Collection Time Receive d Time (Source) Location / / Volume Laterality Urine (Urine, 12/20/2021 11:26 12/20/2021 2:19 Midstream) AM PELLET MACHINE OPERATOR PM PELLET MACHINE OPERATOR Comment: Specimen Source Site: Urine Cheikh Gautam M.D. LAB MICROBIOLOGY - GENERAL O RDERABLES Performing Organization Address City/State/ZIP Code Phon e Number [facility]- [address] [place] [phone] [place] [address] [place] [address] System [address] Urinalysis with Microscopic if Indicated (12/20/2021 11:26 AM PELLET MACHINE OPERATOR) P athologist Signature Source Urine, 12/20/2021 [facility] Urine, Clean 12:12 PM PELLET MACHINE OPERATOR Catch Clarity Clear Clear 12/20/2021 [facility] 12:12 PM PELLET MACHINE OPERATOR Color Yellow 12/20/2021 [facility] 12:12 PM PELLET MACHINE OPERATOR Comment: ----REFERENCE VALUE---- Colorless Yellow Ronda Blood Negative Negative 12/20/2021 12:12 PM PELLET MACHINE OPERATOR [facility] Nitrite Negative Negative 12/20/2021 12:12 PM PELLET MACHINE OPERATOR [facility] Leukocyte Esterase Negative Negative 12/20/2021 12:[address] [facility] Protein Negative mg/dL 12/20/2021 12:12 PM PELLET MACHINE OPERATOR [facility] Comment: ----REFERENCE VALUE---- Negative Trace Glucose Negative Negative mg/dL 12/20/2021 12:12 PM PELLET MACHINE OPERATOR O FRANSICO Ketone Negative Negative mg/dL 12/20/2021 12:12 PM PELLET MACHINE OPERATOR O FRANSICO Bilirubin Negative Negative 12/20/2021 12:12 PM PELLET MACHINE OPERATOR [facility] pH 6.0 5.0 - 8.0 12/20/2021 12:12 PM PELLET MACHINE OPERATOR [facility] Specific Gilbert 1.005 1.001 - 1.035 12/20/2021 12:12 PM PELLET MACHINE OPERATOR [facility] Urobilinogen 0.2 0.2 - 1.0 mg/dL 12/20/2021 12:[address] [facility] Specimen Anatomical Collection Method Collection Time Receive d Time (Source) Location / / Volume Laterality Urine (Urine, 12/20/2021 11:26 12/20/2021 Clean Catch) AM PELLET MACHINE OPERATOR 12:06 PM PELLET MACHINE OPERATOR Cheikh Gautam M.D. LAB URINE ORDERABLES Performing Organization Address City/State/ZIP Code Phon e Number [facility]- [address] [place] [address] [place] [address] System in [place] [address] documented in this encounter Visit Diagnoses Diagnosis Encounter For Supervision Of Other Stella l Unspecified Trimester (HCC) - Primary Examination Test With Positive Result (HCC) documented in this encounter Care Teams Log Cut Off Sawyer Relationship Specialty Start Date End Date Ben Arce M.D. PCP - General Family Medicine 01/13/[address] [place] [address] documented as of this encounter
--- OUTSIDE RECORDS SUMMARY | 2022-07-14 08:19 | XMS_ITS | Encounter Summary ---
:1990 Author Organization [facility] Address [address] [place] [address] Care Team Providers Name Role Phone Ben Arce M.D. Primary Care Provider Reason for Visit Reason Comments Med Refill Encounter Details Date Type Department Care Team Description 05/23/2021 Refill Department of Family Medicine Ben Maynard M.D. Med Refill in [facility] [address] [place] [phone] (Wo rk) Social History Tobacco Use Types [...] do you attend religious or Never 2021 sikhism services? Do you [...] Date Recorded Female 12/02/2021 5:19 PM MANAGER HOUSE documented as of this encounter Miscellaneous Notes Telephone Encounter - Rylie Le RMaribellMKalpesh - 05/23/2021 1:08 PM CDT Medication Name: cetirizine Last Office Visit: 05/18/21 Future Office Visit: none Last Blood Pressure: (89492) 05/18/21 Last Set of Labs: 01/13/21 Patient is restricted to Dr. Ritter for all refills documented in this encounter Plan of Treatment Not on filedocumented as of this encounter Visit Diagnoses Diagnosis Rhinitis Allergic documented in this encounter Care Teams Scroll Shear Operator Relationship Specialty Start Date End Date Ben Arce M.D. PCP - General Family Medicine 01/13/[address] [place] [address] documented as of this encounter
--- OUTSIDE RECORDS SUMMARY | 2022-07-14 08:19 | XMS_ITS | Encounter Summary ---
:1990 Author Organization [facility] Address [address] [place] [address] Care Team Providers Name Role Phone Ben Arce M.D. Primary Care Provider Encounter Details Date Type Department Care Team Description 11/24/2021 Orders Only Department of Robert, Erika Hammer, Abnormal L aboratory Obstetrics and ASSURANCE OFFICER, C.N.P., Results (Samina pendleton Dx) Gynecology in [place], [place] [address] [place] [phone] Social History Tobacco Use Types Packs/Day Years [...] do you attend presybeterian or Never 2021 zoroastrian services? Do you [...] at Date Recorded Female 12/02/2021 5:19 PM HARNESS REPAIRER documented as of this encounter Plan of Treatment Not on filedocumented as of this encounter Results (ABNORMAL) hCG (Human Chorionic Gonadotropin), Quantitative, (11/28/2021 4:00 PM HARNESS REPAIRER) P athologist Signature HCG, 94 (H) <5 IU/L 11/28/2021 [facility] Quantitative, 7:47 PM HARNESS REPAIRER , P Comment: Biotin has been identified by the meir toro as a potential interfering substance. ??Higher concentr ations of biotin may be found in multivitamins, hair/nail supple ments, and workout supplements. ??If the result does not [facility] clinical observations, repeat testing after patient refrains fr om the use of supplements for at least 12 hours. Specimen Anatomical Collection Method Collection Time Receive d Time (Source) Location / / Volume Laterality Blood (Blood, 11/28/2021 4:00 PM 11/28/19 22 6:56 Venous) HARNESS REPAIRER PM HARNESS REPAIRER Erika Jones APRN, C.N.P., M.S.N. LAB BLOOD ADD-ON Performing Organization Address City/State/ZIP Code Phon e Number [facility]- [address] [place], [place] [address] [place] [address] [place] [address] [facility] [address] [place] documented in this encounter Visit Diagnoses Diagnosis Abnormal Laboratory Results - Primary documented in this encounter Care Teams Distribution Center Associate Relationship Specialty Start Date End Date Ben Arce M.D. PCP - General Family Medicine 01/13/[address] [place] [phone] documented as of this encounter
--- OUTSIDE RECORDS SUMMARY | 2022-07-14 08:19 | XMS_ITS | Encounter Summary ---
:1990 Author Organization [facility] Address [address] [place] [address] Care Team Providers Name Role Phone Ben Arce M.D. Primary Care Provider Reason for Visit Reason Comments Communication New script Encounter Details Date Type Department Care Team Description 10/06/2021 Clinical Communication Department of Ben Arce Comm unication (New Family Medicine in M.DMaribell script) [place] [address] [facility] [address] [facility] [phone] [phone] Social History Tobacco Use Types Packs/Day Years [...] do you attend catholic or Never 2021 jain services? Do you [...] at Date Recorded Female 12/02/2021 5:19 PM FORECAST ANALYST documented as of this encounter Miscellaneous Notes Telephone Encounter - Babita Ramachandran R.N. - 10/06/2021 3:58 PM FORECAST ANALYST Portal message sent to patient that if she is on restricted plan she needs to contact her insurance for an exception. CAST ANALYST Telephone Encounter - Alana Perkins L.P.N. - 10/06/2021 3:02 PM FORECAST ANALYST Spoke to pt and informed her that we would need to know which medication for eye drops was ordered so that Dr Arce could send it in. Pt states she has no idea what it is. Informed pt to find out which medication it is and call us back with that info. CAST ANALYST Telephone Encounter - Migdalia Pompa - 10/06/2021 2:19 PM CST Patient has a scratched eyeball, and saw Dr. Annie Mendoza, who sent a prescription for drops to [facility]. However, patient cannot get it filled thru Dr. Mendoza as she is on a restricted pharmacy plan. Would Dr. Arce be able to authorize [facility] to fill the eye drops today sometime? Patient needs them for her sore eye. Please call patient with plan. Thank you. CAST ANALYST documented in this encounter Plan of Treatment Not on filedocumented as of this encounter Visit Diagnoses Not on filedocumented in this encounter Care Teams Wood Buffer Relationship Specialty Start Date End Date Ben Arce M.D. PCP - General Family Medicine 01/13/[address] [facility] [place] [phone] documented as of this encounter
--- OUTSIDE RECORDS SUMMARY | 2022-07-14 08:19 | XMS_ITS | Encounter Summary ---
:1990 Author Organization [facility] Address [address] [place] [address] Care Team Providers Name Role Phone Ben Arce M.D. Primary Care Provider Reason for Visit Reason Comments Sinusitis Sinus pressure / sinus drain age/ sinus congestion x 6 weeks Encounter Details Date Type Department Care Team Description 11/08/2021 [facility] [place], in [facility] [address] [facility] [address] [place] [phone] Social History Tobacco Use Types Packs/Day Years [...] do you attend christianity or Never 2021 pentecostalism services? Do you [...] Date Recorded Female 12/02/2021 5:19 PM SPECIAL EDUCATION PROFESSIONAL documented as of this encounter Last Filed Vital Signs Vital Sign Reading Time Taken Comments Blood Pressure 126/78 11/08/2021 12:40 PM SPECIAL EDUCATION PROFESSIONAL Pulse 78 11/08/2021 12:40 PM SPECIAL EDUCATION PROFESSIONAL Temperature 37 ??C (98.6 ??F) 11/08/2021 12:40 PM SPECIAL EDUCATION PROFESSIONAL Respiratory Rate 16 11/08/2021 12:40 PM SPECIAL EDUCATION PROFESSIONAL Oxygen Saturation 98% 11/08/2021 12:40 PM SPECIAL EDUCATION PROFESSIONAL Inhaled Oxygen Concentration - - Weight 72.1 kg (158 lb 14.4 oz) 11/08/2021 12:40 PM SPECIAL EDUCATION PROFESSIONAL Height 155 cm (5' 1.02) 11/08/2021 12:40 PM SPECIAL EDUCATION PROFESSIONAL Body Mass Index 30 11/08/2021 12:40 PM SPECIAL EDUCATION PROFESSIONAL documented in this encounter Patient Instructions Patient InstructionsArely Ferrell APRN, C.N.P. - 11/08/2021 12:30 PM SPECIAL EDUCATION PROFESSIONAL Steam, frequent showers to break up mucus in back of throat. Follow up if not gradually improving over the next 7-10 days or sooner if symptoms would worsen. IAL EDUCATION PROFESSIONAL AttachmentsThe following attachments cannot be sent through Care Everywhere. Sinusitis (Rhinosinusitis) (Mohawk)documented in this encounter Progress Notes Arely Ferrell [...] in total care of the patient today. IAL EDUCATION PROFESSIONAL documented in this encounter Plan of Treatment Not on filedocumented as of this encounter Visit Diagnoses Diagnosis Sinusitis - Primary documented in this encounter Care Teams Head Resident Relationship Specialty Start Date End Date Ben Arce M.D. PCP - General Family Medicine 01/13/[address] [place] [phone] documented as of this encounter
--- OUTSIDE RECORDS SUMMARY | 2022-07-14 08:19 | XMS_ITS | Encounter Summary ---
:1990 Author Organization [facility] Address [address] [place] [address] Care Team Providers Name Role Phone Ben Arce M.D. Primary Care Provider Reason for Visit Reason Comments Med Refill Naproxen Encounter Details Date Type Department Care Team Description 02/10/2021 Refill Department of Ben Metzger M.D. Med Refill (Naproxen) Medicine in [place] [address] [place], [place] [address] [place] [address] [place] [address] [phone] Social History Tobacco Use Types Packs/Day Years [...] do you attend druze or Never 2021 protestant services? Do you [...] at Date Recorded Female 12/02/2021 5:19 PM INSPECTOR BALANCE WHEEL MOTION documented as of this encounter Miscellaneous Notes Telephone Encounter - Kennedi Mckeon, R.M.A. - 02/10/2021 10:12 AM CDT Medication refill Naproxen Last filled 01/13/21 Last OV 01/13/21, 01/07/21 Future appointment None scheduled documented in this encounter Plan of Treatment Not on filedocumented as of this encounter Visit Diagnoses Diagnosis Pain Elbow Left documented in this encounter Care Teams Black Top Machine Operator Relationship Specialty Start Date End Date Ben Arce M.D. PCP - General Family Medicine 01/13/[address] [place] [address] documented as of this encounter
--- OUTSIDE RECORDS SUMMARY | 2022-07-14 08:19 | XMS_ITS | Encounter Summary ---
:1990 Author Organization [facility] Address [address] [place] [address] Care Team Providers Name Role Phone Ben Arce M.D. Primary Care Provider Encounter Details Date Type Department Care Team Description 01/21/2021 Orders Only [facility] PCP TH Teja Zuniga Jr., M.D. [address] [place] [address] [place] [phone] (Wo rk) Social History Tobacco [...] do you attend adventism or Never 2021 yazidi services? Do you [...] at Date Recorded Female 12/02/2021 5:19 PM ALLERGIST/IMMUNOLOGIST documented as of this encounter Plan of Treatment Not on filedocumented as of this encounter Visit Diagnoses Not on filedocumented in this encounter Care Teams Hull Inspector Relationship Specialty Start Date End Date Ben Arce M.D. PCP - General Family Medicine 01/13/[address] [place] [phone] documented as of this encounter
--- OUTSIDE RECORDS SUMMARY | 2022-07-14 08:19 | XMS_ITS | Encounter Summary ---
:1990 Author Organization [facility] Address [address] [place] [address] Care Team Providers Name Role Phone Ben Arce M.D. Primary Care Provider Reason for Referral Outpatient (Routine) - Authorized Specialty Diagnoses / Procedures Referred By Contact Refer red To Contact Diagnoses Subdermal Implantable Contraceptive Removal Rylie Mcdowell M.D. [facility] Procedures Subdermal Contraceptive Device [facility] [place] [address] Referral ID Status Reason Start Date Expiration Date Visits V isits Requested Authorized [id number] Authorized 12/01/2021 12/01/2022 1 1 H SHADER Reason for Visit Reason Comments nexplanon removal Early . LMP 10/29/21. Pt will see Dr. Swenson in [place] with [facility] for . Appointment Request (Routine) - Closed Specialty Diagnoses / Procedures Referred By Contact Refer red To Contact Obstetrics and Gynecology Referral ID Status Reason Start Date Expiration Date Visits Requ ested Visits Authorized [id number] Closed 11/29/2021 11/29/2022 1 1 Encounter Details Date Type Department Care Team Description 12/01/2021 Office Visit Department of Rylie Mcdowell Subdermal Imp lancesar Obstetrics and Minoo Contraceptive Removal Gynecology in [address] (Primary Dx) [place], [place] [address] [facility] [address] [place], [place] [phone] (Work) [phone] Social History Tobacco Use Types Packs/Day Years [...] do you attend worship or Never 2021 christian services? Do you [...] Date Recorded Female 12/02/2021 5:19 PM CLOTH SHADER documented as of this encounter Last Filed Vital Signs Vital Sign Reading Time Taken Comments Blood Pressure 155/91 12/01/2021 2:56 PM CLOTH SHADER Pulse 84 12/01/2021 2:56 PM CLOTH SHADER Temperature 36.2 ??C (97.2 ??F) 12/01/2021 2:56 PM CLOTH SHADER Respiratory Rate - - Oxygen Saturation - - Inhaled Oxygen Concentration - - Weight 69.5 kg (153 lb 4.8 oz) 12/01/2021 2:56 PM CLOTH SHADER Height - - Body Mass Index 28.94 11/08/2021 12:40 PM CLOTH SHADER documented in this encounter Progress Notes Rylie Mcdowell M.D. - 12/01/2021 3:15 PM CST SUBJECTIVE CHIEF COMPLAINT / REASON FOR VISIT Chief Complaint Patient presents with ??? nexplanon removal Early . LMP 10/29/21. Pt will see Dr. Swenson in [place] with [facility] for . HISTORY OF PRESENT CONDITION [...] and Family: Twice a week ??? Attends Worship Services: Never ??? Active Member of Clubs [...] levels - plan US once HCG above 4040-1744 - Patient is following up at [facility] Diet and exercise, PNV and folate, [...] are no discontinued medications. Rylie Mcdowell M.D. H SHADER documented in this encounter Procedure Notes Rylie [...] lidocaine POST-PROCEDURE DETAILS Complications: no apparent complications AIR POLLUTION AUDITOR H SHADER documented in this encounter Plan of Treatment Not on filedocumented as of this encounter Procedures Procedure Name Priority Date/Time Associated Diagnosis Comme nts GA RMVL DRUG IMPL Routine 12/01/2021 4:11 PM Subdermal Implant able Results for this CLOTH SHADER Contraceptive Removal proced ure are in the results section. documented in this encounter Results GA RMVL DRUG IMPL (12/01/2021 4:11 PM CLOTH SHADER) Narrative MMODAL - 12/01/2021 4:11 PM CLOTH SHADER Rylie Mcdowell M.D. ? 12/01/2021 ??4:12 PM [...] Primary documented in this encounter Care Teams Comparative Sociology Professor Relationship Specialty Start Date End Date Ben Arce M.D. PCP - General Family Medicine 01/13/[address] [place] [address] documented as of this encounter
--- OUTSIDE RECORDS SUMMARY | 2022-07-14 08:19 | XMS_ITS | Encounter Summary ---
:1990 Author Organization [facility] Address [address] [place] [address] Care Team Providers Name Role Phone Ben Arce M.D. Primary Care Provider Encounter Details Date Type Department Care Team Description 11/28/2021 Hospital Encounter Department of Erika Jones Laboratory Laboratory Medicine CJ HammerN, Results in [place], C.N.PMaribell, M.S.N. [place] [address] [place] [address] [phone] Social History Tobacco Use Types Packs/Day Years [...] you attend roman catholic or Never 2021 christianity services? Do you [...] at Date Recorded Female 12/02/2021 5:19 PM SEGMENTAL WALL INSTALLER documented as of this encounter Medications [...] Abnormal Laboratory Results for this GONADOTROPIN (HCG), SEGMENTAL WALL INSTALLER Results procedur e are in ROBERTA, the results section. documented in this encounter Results (ABNORMAL) hCG (Human Chorionic Gonadotropin), Quantitative, (11/28/2021 4:00 PM SEGMENTAL WALL INSTALLER) P athologist Signature HCG, 94 (H) <5 IU/L 11/28/2021 [facility] Quantitative, 7:47 PM SEGMENTAL WALL INSTALLER , P Comment: Biotin has been identified [...] (Blood, 11/28/2021 4:00 PM 11/28/19 6:56 Venous) SEGMENTAL WALL INSTALLER PM SEGMENTAL WALL INSTALLER Erika Jones APRN, C.N.P., M.S.N. LAB BLOOD ADD-ON Performing Organization Address City/State/ZIP Code Phon e Number [facility] [address] [place], [place] [address] [place] [address] [place] [address] [address] [facility] documented in this encounter Visit Diagnoses Diagnosis Abnormal Laboratory Results documented in this encounter Care Teams Clinical Business Analyst Relationship Specialty Start Date End Date Ben Arce M.D. PCP - General Family Medicine 01/13/[address] [place] [phone] documented as of this encounter
--- OUTSIDE RECORDS SUMMARY | 2022-07-14 08:19 | XMS_ITS | Encounter Summary ---
:1990 Author Organization [facility] Address [address] [place] [address] Care Team Providers Name Role Phone Elsewhere, Pcp Primary Care Provider Unavailable Reason for Referral Outpatient (Routine) - Closed Specialty Diagnoses / Procedures Referred By Contact Refer red To Contact Family Medicine Zack Macdonald M.D. [facility] [address] [place] [address] Referral ID Status Reason Start Date Expiration Date Visits Requ ested Visits Authorized [id number] Closed 12/16/2020 12/16/2021 1 1 T CLERK Reason for Visit Reason Comments Follow-up arm injury Encounter Details Date Type Department Care Team Description 12/16/2020 Office Visit Department of Family Zack Macdonald, Pain Elbow Left Medicine in [place]aswinder Hennessy (Primary Dx) [place], [place] [address] [place] [phone] Social History Tobacco Use Types Packs/Day Years [...] do you attend gnosticist or Never 2021 buddhism services? Do you belong to any clubs or No 11/20/2021 organizations such as gnosticist groups, unions, fraDarkstrand or athletic groups, or school groups? How [...] at Date Recorded Female 12/02/2021 5:[address] CLERK documented as of this encounter Last Filed Vital Signs Vital Sign Reading Time Taken Comments Blood Pressure 126/92 12/16/2020 3:[address] CLERK Pulse 78 12/16/2020 3:[address] CLERK Temperature 36.2 ??C (97.2 ??F) 12/16/2020 3:[address] CLERK Respiratory Rate - - Oxygen Saturation 97% 12/16/2020 3:[address] CLERK Inhaled Oxygen Concentration - - Weight 72.1 kg (158 lb 14.4 oz) 12/16/2020 3:[address] CLERK Height - - Body Mass Index 31.2 12/14/2020 5:[address] CLERK documented in this encounter Patient Instructions Patient InstructionsZack Macdonald M.D. - 12/16/2020 3:30 PM CST 1. Make an appointment in 3 weeks for follow-up. 2. Sling as needed for comfort. 3. Continue to work on range of motion with the shoulder and elbow. 4. Tylenol or ibuprofen as needed for discomfort. T CLERK documented in this encounter Progress Notes Zack [...] Tylenol or ibuprofen as needed for discomfort. T CLERK documented in this encounter Plan of Treatment Scheduled Referrals Name Type Priority Associated Diagnoses Order S [facility] Outpatient Referral Routine Expec taurus: office [...] Left documented in this encounter Care Teams Clinical Support Associate Relationship Specialty Start Date End Date Elsewhere, Pcp PCP - General Family Medicine 01/08/18 01/12/21 documented as of this encounter
--- OUTSIDE RECORDS SUMMARY | 2022-07-14 08:19 | XMS_ITS | Encounter Summary ---
:1990 Author Organization [facility] Address [address] [place] [address] Care Team Providers Name Role Phone Ben Arce M.D. Primary Care Provider Reason for Visit Reason Comments Med Refill Encounter Details Date Type Department Care Team Description 11/24/2021 Refill Department of Family Medicine Ben Maynard M.D. Med Refill in [facility] [address] [place] [phone] (Wo rk) Social History Tobacco Use Types [...] do you attend uatsdin or Never 2021 congregation services? Do you [...] at Date Recorded Female 12/02/2021 5:19 PM CURB WORKER documented as of this encounter Plan of Treatment Not on filedocumented as of this encounter Visit Diagnoses Not on filedocumented in this encounter Care Teams Brewing Director Relationship Specialty Start Date End Date Ben Arce M.D. PCP - General Family Medicine 01/13/[address] [place] [address] documented as of this encounter
--- OUTSIDE RECORDS SUMMARY | 2022-07-14 08:19 | XMS_ITS | Encounter Summary ---
:1990 Author Organization [facility] Address [address] [place] [address] Care Team Providers Name Role Phone Ben Arce M.D. Primary Care Provider Reason for Visit Reason Comments Med Refill Encounter Details Date Type Department Care Team Description 03/16/2021 Refill Department of Family Medicine Ben Maynard M.D. Med Refill in [facility] [address] [place] [phone] (Wo rk) Social History Tobacco Use Types [...] do you attend rastafarian or Never 2021 yarsanism services? Do you [...] Date Recorded Female 12/02/2021 5:19 PM ELIGIBILITY AND OCCUPANCY INTERVIEWER documented as of this encounter Miscellaneous Notes Telephone Encounter - Celina Goyal RMaribellN. - 03/16/2021 11:58 AM CDT Refills must come from Dr Arce due to a Restricted program Unable to refill per protocol: Name of Medications Needing Refill: Naproxen Last Refill Date: 02/10/21 [id number], 0 refills Last / Future Appointment: 01/13/21 documented in this encounter Plan of Treatment Not on filedocumented as of this encounter Visit Diagnoses Diagnosis Pain Elbow Left documented in this encounter Care Teams Tester Operator Helper Relationship Specialty Start Date End Date Ben Arce M.D. PCP - General Family Medicine 01/13/[address] [place] [address] documented as of this encounter
--- OUTSIDE RECORDS SUMMARY | 2022-07-14 08:19 | XMS_ITS | Encounter Summary ---
:1990 Author Organization [facility] Address [address] [place] [address] Care Team Providers Name Role Phone Elsewhere, Pcp Primary Care Provider Unavailable Reason for Visit Reason Comments Earache Encounter Details Date Type Department Care Team Description 01/02/2021 Nurse Triage Department of [facility] Angella Herbert, Ear ache Medicine in [place], M.S.N., R.N. [place] [address] [place] [address] Social History Tobacco Use Types Packs/Day [...] do you attend faith or Never 2021 judaism services? Do you [...] at Date Recorded Female 12/02/2021 5:19 PM LAUNDROMAT WORKER documented as of this encounter Miscellaneous [...] medication (e.g., ibuprofen or acetaminophen) Protocols used: [id number] Care Advice Patient/Caregiver understands and will follow care advice?: Yes, able to teach back SEE PCP WITHIN 4 HOURS (OR PCP TRIAGE): * IF OFFICE WILL BE OPEN: You need to be seen within the next 3 or 4 hours. Call your doctor (or WILDLIFE SCIENCE PROFESSOR/PA) now or as soon as the office [...] need to be seen. Your doctor (or WILDLIFE SCIENCE PROFESSOR/PA) will want to talk with you to [...] on filedocumented in this encounter Care Teams Engine Setter Relationship Specialty Start Date End Date Elsewhere, Pcp PCP - General Family Medicine 01/08/18 01/12/21 documented as of this encounter
--- OUTSIDE RECORDS SUMMARY | 2022-07-14 08:19 | XMS_ITS | Encounter Summary ---
:1990 Author Organization [facility] Address [address] [place] [address] Care Team Providers Name Role Phone Ben Arce M.D. Primary Care Provider Encounter Details Date Type Department Care Team Description 05/18/2021 Hospital Encounter Department of Alexander Rendon, Pain Hand Right Radiology, [facility], in [place] [address] [place], [place] [address] [place] [address] [place], [place] [phone] (Work) [phone] Social History Tobacco Use Types Packs/Day Years [...] do you attend uatsdin or Never 2021 tenriism services? Do you [...] at Date Recorded Female 12/02/2021 5:19 PM SUPERINTENDENT OPERATING documented as of this encounter Medications at [...] Right documented in this encounter Care Teams Coal Grader Relationship Specialty Start Date End Date Ben Arce M.D. PCP - General Family Medicine 01/13/[address] [place] [address] documented as of this encounter
--- OUTSIDE RECORDS SUMMARY | 2022-07-14 08:19 | XMS_ITS | Encounter Summary ---
:[address] [facility] Address [address] [place] [address] Care Team Providers Name Role Phone Elsewhere, Pcp Primary Care Provider Unavailable Encounter Details Date Type Department Care Team Description 01/07/2021 Clinical Communication Department of [facility] in [facility], C.N.P.[place], [place] D.N.P. [address] [place] [phone] Social History Tobacco Use Types Packs/Day Years [...] at Date Recorded Female 12/02/2021 5:19 PM SLACK COOPER documented as of this encounter Miscellaneous Notes [...] patient Please call [place] before patient arrives... [phone] documented in this encounter Plan of Treatment Not on filedocumented as of this encounter Visit Diagnoses Not on filedocumented in this encounter Care Teams Groover Operator Relationship Specialty Start Date End Date Elsewhere, Pcp PCP - General Family Medicine 01/08/18 01/12/21 documented as of this encounter
--- OUTSIDE RECORDS SUMMARY | 2022-07-14 08:20 | XMS_ITS | Encounter Summary ---
:1990 Author Organization [facility] Address [address] [place] [address] Care Team Providers Name Role Phone Elsewhere, Pcp Primary Care Provider Unavailable Encounter Details Date Type Department Care Team Description 01/28/2019 Hospital Encounter Department of Radiology Ben Arce M.D. Edema Leg in [place], [place] [address] [place] [phone] Social History Tobacco Use Types Packs/Day Years [...] do you attend yazdanism or Never 2021 zoroastrian services? Do you [...] at Date Recorded Female 12/02/2021 5:19 PM BLEACHER [employer] PULP documented as of this encounter Medications at [...] Leg documented in this encounter Care Teams Firearms Assembly Supervisor Relationship Specialty Start Date End Date Elsewhere, Pcp PCP - General Family Medicine 01/08/18 01/12/21 documented as of this encounter
--- OUTSIDE RECORDS SUMMARY | 2022-07-14 08:20 | XMS_ITS | Encounter Summary ---
:1990 Author Organization [facility] Address [address] [place] [address] Care Team Providers Name Role Phone Elsewhere, Pcp Primary Care Provider Unavailable Reason for Visit Reason Comments Sore Throat SX: in ER Sunday with josiane st inflammation; st started Encounter Details Date Type Department Care Team Description 07/26/2019 [facility] (Primary Dx[facility] [place], [place] [address], [address] [place] [address] [phone] (Wo rk) Social History Tobacco Use Types [...] do you attend moravian or Never 2021 zoroastrianism services? Do you [...] at Date Recorded Female 12/02/2021 5:19 PM RECEIPT AND REPORT CLERK documented as of this encounter Last [...] Organization Address City/State/ZIP Code Phon e Number [place] [address] [place] [address] [facility], PCR, Point [...] Organization Address City/State/ZIP Code Phon e Number [place] [address] [address] [place] [address] [facility] documented in this encounter Visit Diagnoses Diagnosis Pharyngitis Acute - Primary documented in this encounter Care Teams Talent Scout Relationship Specialty Start Date End Date Elsewhere, Pcp PCP - General Family Medicine 01/08/18 01/12/21 documented as of this encounter
--- OUTSIDE RECORDS SUMMARY | 2022-07-14 08:20 | XMS_ITS | Encounter Summary ---
:1990 Author Organization [facility] Address [address] [place] [address] Care Team Providers Name Role Phone Elsewhere, Pcp Primary Care Provider Unavailable Reason for Visit Reason Comments Sinus Symptoms ST, Cipriano ear pressure, conges tion; 3.5 wks ago Encounter Details Date Type Department Care Team Description 06/27/2019 Office Visit Urgent Care, [facility] Sana Savage S [facility] [place], [place] [address], [address] [place] [address] [phone] (Wo rk) Social History Tobacco Use Types [...] do you attend adventist or Never 2021 baptism services? Do you [...] Date Recorded Female 12/02/2021 5:19 PM SOCIAL SERVICES AIDE documented as of this encounter Last [...] Primary documented in this encounter Care Teams Nurse Auditor Relationship Specialty Start Date End Date Elsewhere, Pcp PCP - General Family Medicine 01/08/18 01/12/21 documented as of this encounter
--- OUTSIDE RECORDS SUMMARY | 2022-07-14 08:20 | XMS_ITS | Encounter Summary ---
:1990 Author Organization [facility] Address [address] [place] [address] Care Team Providers Name Role Phone Elsewhere, Pcp Primary Care Provider Unavailable Reason for Visit Reason Comments Nasal Congestion pt presents concerned for po ssible sinus infection. c/o of facial pain, congestion, ear pain a nd throat pain. symptoms for approx one month. denies fevers. has be en taking mucinex Encounter Details Date Type Department Care Team Description 03/28/2019 Emergency [place] [facility] Valerie Malone, Infec kori Upper Department M.DMaribell Respiratory (Primary [address] Dx) [place] [address] [phone] Social History Tobacco Use Types Packs/Day Years [...] do you attend alevism or Never 2021 latter-day services? Do you [...] at Date Recorded Female 12/02/2021 5:19 PM PEST TECHNICIAN documented as of this encounter Last [...] Primary documented in this encounter Care Teams Insurance Sales Agent Relationship Specialty Start Date End Date Elsewhere, Pcp PCP - General Family Medicine 01/08/18 01/12/21 documented as of this encounter
--- OUTSIDE RECORDS SUMMARY | 2022-07-14 08:20 | XMS_ITS | Encounter Summary ---
:1990 Author Organization [facility] Address [address] [place] [address] Care Team Providers Name Role Phone Elsewhere, Pcp Primary Care Provider Unavailable Reason for Visit Reason Comments Vomiting Pt presents w/nausea, vomiti ng and diarrhea onset 2300 yesterday. Encounter Details Date Type Department Care Team Description 11/11/2019 Emergency [place] [facility] Sigrid Forbes ausea And Vomiting (Primary Dx); Department D, M.D. Diarrhea [address] [place] [phone] (Wo rk) Social History Tobacco Use Types [...] do you attend holiness or Never 2021 episcopalian services? Do you [...] at Date Recorded Female 12/02/2021 5:19 PM CABBAGE SALTER documented as of this encounter Last Filed Vital Signs Vital Sign Reading Time Taken Comments Blood Pressure 112/79 11/11/2019 7:01 AM CABBAGE SALTER Pulse 81 11/11/2019 7:01 AM CABBAGE SALTER Temperature 36.4 ??C (97.5 ??F) 11/11/2019 7:01 AM CABBAGE SALTER Respiratory Rate 16 11/11/2019 7:01 AM CABBAGE SALTER Oxygen Saturation 93% 11/11/2019 7:01 AM CABBAGE SALTER Inhaled Oxygen Concentration - - Weight 71.8 kg (158 lb 4.6 oz) 11/11/2019 5:50 AM CABBAGE SALTER Height 152.4 cm (5') 11/11/2019 5:50 AM CABBAGE SALTER Body Mass Index 30.91 11/11/2019 5:50 AM CABBAGE SALTER documented in this encounter Discharge Instructions Discharge InstructionsToSigrid geronimo M.D. - 11/11/2019 6:51 AM CABBAGE SALTER Return to the Emergency Department/ if he [...] clinic by calling the appointment center at [phone]. Thank you for choosing [facility] for your care. It was a pleasure taking care of you today in our Emergency Department. AGE SALTER AttachmentsThe following attachments cannot be sent through Care Everywhere. Nausea and Vomiting Adult (Citizen Of [place])Diarrhea Adult [id number] (Citizen Of [place]) documented in this encounter Medications at Time [...] Forbes M.D. - 11/11/2019 6:16 AM CST [facility] EMERGENCY DEPARTMENT ENCOUNTER Patient Name: Lulu Mata PCP: Primary Care Physician SUBJECTIVE CHIEF COMPLAINT/REASON FOR VISIT Vomiting (Pt presents w/nausea, vomiting and diarrhea onset 2300 yesterday.) HISTORY OF PRESENT ILLNESS Lulu Mata is a 29 y.o. female with a history of asthma presenting with 7 hours of vomiting and diarrhea. She ate dinner at the [employer] last night. Several different types of food [...] felt well before eating dinner at the [employer]. She denies any recentabdominal pain, no prior [...] Forbes M.D. 11/11/19650 Sigrid Forbes M.D. 11/11/19654 AGE SALTER documented in this encounter Plan of Treatment Not on filedocumented as of this encounter Visit Diagnoses Diagnosis Nausea And Vomiting - Primary Diarrhea documented in this encounter Administered Medications Inactive Administered Medications - up to 3 most recent administrations Medication Order MAR Action Action Date Dose Rate Site ondansetron ODT disintegrating Given 11/11/2019 6:10 AM CABBAGE SALTER 8 mg tablet 8 mg (ZOFRAN-ODT) 8 mg, oral, Once, On Sun11/11/19 at 0605, For 1 dose, When splitting ODT at bedside, handle with gloves and a pill splitter to prevent moisture contact. documented in this encounter Active and Recently Administered Medications Times are shown in CABBAGE SALTER. Scheduled Medication Order 11/09/2019 11/10/2019 11/11/2019 ondansetron ODT disintegrating tablet 8 mg (ZOFRAN-ODT) ([facility]) 0610 (Given - Provider: Tara Brock R.N.) 8 mg, oral, Once, On Sun11/11/19 at 0605 , For 1 dose, When splitting ODT at bedside, handle with gloves and a pill splitter to prevent moisture contact. documented in this encounter Care Teams Outreach Counselor Relationship Specialty Start Date End Date Elsewhere, Pcp PCP - General Family Medicine 01/08/18 01/12/21 documented as of this encounter
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
--- OUTSIDE RECORDS SUMMARY | 2022-07-14 08:20 | XMS_ITS | Encounter Summary ---
:1990 Author Organization [facility] Address [address] [place] [address] Care Team Providers Name Role Phone Elsewhere, Pcp Primary Care Provider Unavailable Reason for Referral Physical Therapy (Routine) - Denied Specialty Diagnoses / Procedures Referred By Contact Refer red To Contact Diagnoses Tendonitis Loulou Teresa APRN, [facility] Procedures PT Evaluate and treat C.N.P. [address] [place] [address] Referral ID Status Reason Start Date Expiration Date Visits Requ ested Visits Authorized [id number] Denied 06/08/2020 10/21/2020 1 0 Reason for Visit Reason Comments Post Ed Visit Follow-up Encounter Details Date Type Department Care Team Description 06/08/2020 Office Visit Department of [facility] Loulou Teresa Te ndonitis (Primary Medicine in [facility] PAPER CLEANER, C.N.P. Dx) [place], [place] [address] [place] [phone] Social History Tobacco Use Types Packs/Day Years [...] at Date Recorded Female 12/02/2021 5:19 PM WINDOW GLASS CUTTER OFF documented as of this encounter Last Filed [...] Primary documented in this encounter Care Teams Exchange Operator Relationship Specialty Start Date End Date Elsewhere, Pcp PCP - General Family Medicine 01/08/18 01/12/21 documented as of this encounter
--- OUTSIDE RECORDS SUMMARY | 2022-07-14 08:20 | XMS_ITS | Encounter Summary ---
:1990 Author Organization [facility] Address [address] [place] [address] Care Team Providers Name Role Phone Elsewhere, [...] Type Department Care Team Description 07/23/2019 Emergency [place] [facility] Bull Calderon Cos tochondritis (Primary Department M.D. Dx) [address] [facility] [place] [phone] Social History Tobacco Use Types Packs/Day Years [...] do you attend jew or Never 2021 sabianist services? Do you [...] at Date Recorded Female 12/02/2021 5:19 PM HAND STONER documented as of this encounter Last Filed [...] cannot be sent through Care Everywhere. Costochondritis Cjul-qd-Itbd (Pashto)documented in this encounter Medications at Time [...] Plan Impression: Costochondritis Plan: Patient has utilize tmhg-pvc-ixvualo medications without improvement or alteration in her symptomatology. Patient be started on prednisone 20 mg daily for 5 days, the 1st dose administered here in the emergency department. Ultram 50 mg 1/2-1 tablet to be utilized every 6 hours as needed for painrating 7-10/10 severity, quantity 15 with no refills was prescribed from the [facility] medication dispenser as it is currently raining [...] dose documented in this encounter Care Teams Chemical Plant Manager Relationship Specialty Start Date End Date Elsewhere, Pcp PCP - General Family Medicine 01/08/18 01/12/21 documented as of this encounter
--- OUTSIDE RECORDS SUMMARY | 2022-07-14 08:20 | XMS_ITS | Encounter Summary ---
:1990 Author Organization [facility] Address [address] [place] [address] Care Team Providers Name Role Phone Elsewhere, Pcp Primary Care Provider Unavailable Reason for Referral Outpatient (Routine) - Canceled Specialty Diagnoses / Procedures Referred By Contact Refer red To Contact Diagnoses Numbness Ben Arce M.D. External, Referring [address] [place] [address] Referral ID Status Reason Start Date Expiration Date Visits V isits Requested Authorized [id number] Canceled No 08/26/2019 08/25/2020 1 1 access/unsa tisfactory access LE PRESS CATCHER Reason for Visit Reason Onset Date Comments Communication 08/26/2019 Encounter Details Date Type Department Care Team Description 08/26/2019 Clinical Communication Department of Ben Metzger , Communication Medicine in [place], [place] [address] [place] [phone] Social History Tobacco Use Types Packs/Day Years [...] do you attend gnosticist or Never 2021 yarsani services? Do you belong to any clubs or No 11/20/2021 organizations such as gnosticist groups, unions, fraExtremeScapes of [place] or athletic groups, or school groups? How [...] at Date Recorded Female 12/02/2021 5:19 PM MANGLE PRESS CATCHER documented as of this encounter Miscellaneous Notes Telephone Encounter - Alexandria Whittington - 08/27/2019 9:52 AM CST I will work on this. LE PRESS CATCHER Telephone Encounter - Sridhar Espinal - 08/27/2019 8:24 AM CST Alexandria, can you work on this please? Thank you!! LE PRESS CATCHER Telephone Encounter - Ben Arce M.D. - 08/26/2019 3:36 PM CST External referral order placed. Please help her to find nearby neurology. None in [place], she has travel to [place] or [facility]. Thanks. LE PRESS CATCHER Telephone Encounter - Nadya Koehler, RMaribellN. - 08/26/2019 12:19 PM MANGLE PRESS CATCHER Can an outside referral be entered for neurology for sooner appointment? Thank you. LE PRESS CATCHER Telephone Encounter - Rylie Juárez - 08/26/2019 12:[address] Daiana Booth does not have an opening in [place] until December and Lulu cannot [facility]. Can a referral be placed for a neurologist that is closer? LE PRESS CATCHER documented in this encounter Plan of Treatment Not on filedocumented as of this encounter Visit Diagnoses Diagnosis Numbness - Primary documented in this encounter Care Teams Occupational Therapy Supervisor Relationship Specialty Start Date End Date Elsewhere, Pcp PCP - General Family Medicine 01/08/18 01/12/21 documented as of this encounter
--- OUTSIDE RECORDS SUMMARY | 2022-07-14 08:20 | XMS_ITS | Encounter Summary ---
:1990 Author Organization [facility] Address [address] [place] [address] Care Team Providers Name Role Phone Elsewhere, Pcp Primary Care Provider Unavailable Reason for Visit Reason Comments Sinus Symptoms ongoing Encounter Details Date Type Department Care Team Description 07/02/2020 Office Visit Urgent Care, [facility], Sin usitis Acute [place], in [place], FATOU, C.N.P., (Samina pendleton Dx) [place] D.N.P. [address] [place] [phone] Social History Tobacco Use Types Packs/Day Years [...] do you attend episcopal or Never 2021 evangelical services? Do you [...] at Date Recorded Female 12/02/2021 5:19 PM COPPER PLATER documented as of this encounter Last [...] bacteria. Still, most people seen in the [facility] for upper respiratory infectionor sinusitis symptoms are [...] and replace them as recommended by the baby doctor. Note: Having your humidity too high (more [...] help open sinuses and allow easier breathing. Lmeq-udz-bcojwtv treatments* In addition to the previous suggestions, you may get relief for nasal and sinus obstruction or discomfort by taking non-prescription, etln-yrz-ehfmtep (OTC) medications. Many OTC medications combine a [...] Education and Research (MER). All rights reserved. [id number] documented in this encounter Progress Notes Esther [...] has been using Flonase nasal spray and zbdy-nvi-ikqmplc decongestant and Tylenol or ibuprofen for symptoms. [...] a humidifier in the room. May use ccdf-zzw-vkuzetu Flonase to help with congestion. Drink warm [...] Primary documented in this encounter Care Teams Avian Keeper Relationship Specialty Start Date End Date Elsewhere, Pcp PCP - General Family Medicine 01/08/18 01/12/21 documented as of this encounter
--- OUTSIDE RECORDS SUMMARY | 2022-07-14 08:20 | XMS_ITS | Encounter Summary ---
:1990 Author Organization [facility] Address [address] [place] [address] Care Team Providers Name Role Phone Elsewhere, [...] Type Department Care Team Description 07/29/2019 Emergency [place] Emergency Sigrid Forbes ontusion Left Lower Department D, MMaribellDMaribell Leg Initial (Primary [address] Dx) [place] [phone] (Wo rk) Social History Tobacco Use Types [...] do you attend adventist or Never 2021 rastafarian services? Do you belong to any clubs or No 11/20/2021 organizations such as adventist groups, unions, fraVetiary or athletic groups, or school groups? How [...] at Date Recorded Female 12/02/2021 5:19 PM E MERCHANT documented as of this encounter Last Filed [...] clinic by calling the appointment center at [phone]. Thank you for choosing [facility] for your care. It was a pleasure taking care of you today in our Emergency Department. AttachmentsThe following attachments cannot be sent through Care Everywhere. Contusion Pwap-vg-Cwzs (Kyrgyz)documented in this encounter Medications at Time of Discharge Medication Sig Dispensed Refills Start Date End Date acetaminophen (TYLENOL Take by mouth as 0 08/11/2019 ORAL) needed. etonogestreL (NEXPLANON) 1 each by implant 0 12/2112/20/2021 68 mg subdermal implant route continuously. documented as of this encounter ED Notes Sigrid Forbes M.D. - 07/29/2019 4:50 PM CDT [facility] EMERGENCY DEPARTMENT ENCOUNTER Patient Name: [...] CDT eGFR-Black/Afric >90 >=60 07/29/2019 [facility] an Albanian mL/min/BSA 6:50 PM CDT Comment: ----ADDITIONAL INFORMATION---- [...] Phon e Number [facility]- [address] [place] [address] [address] [place] [address] [place] [address] [facility] (ABNORMAL) CBC without Differential (07/29/2019 6:21 PM CDT) [facility] Method Time Signature Hemoglobin 13.2 11.6 [...] Phon e Number [facility]- [address] [place], [place] [address] [facility] [place] [address] [facility] [address] DX [...] Sigrid Forbes M.D. IMG DIAGNOSTIC IMAGING PROCE [facility] CT Lumbar Spine by Reconstruction (07/29/2019 [...] (Given - Provider: Gurdeep Persaud(R)(CT) - Comment: [id number]) 100 mL, intravenous, Once in imaging, co [...] 1651 documented in this encounter Care Teams Cooker Meal Relationship Specialty Start Date End Date Elsewhere, Pcp PCP - General Family Medicine 01/08/18 01/12/21 documented as of this encounter
--- OUTSIDE RECORDS SUMMARY | 2022-07-14 08:20 | XMS_ITS | Encounter Summary ---
:1990 Author Organization [facility] Address [address] [place] [address] Care Team Providers Name Role Phone Elsewhere, Pcp Primary Care Provider Unavailable Reason for Visit Reason Comments Follow-up Outpatient (Routine) - Closed Specialty Diagnoses / Procedures Referred By Contact Refer red To Contact Family Medicine Ben Arce M.D. [facility] Region [address] [place] [address] Referral ID Status Reason Start Date Expiration Date Visits Requ ested Visits Authorized [id number] Closed 01/28/2019 01/28/2020 1 1 Encounter Details Date Type Department Care Team Description 02/11/2019 Office Visit Department of Ben Metzger M.D. Thrombosis Superficial Medicine in [facility] [address] Vein Lower Extremity [place], [place] Left (Primary Dx) [address] [place] [address] [place], [place] [phone] (Work) [phone] Social History Tobacco Use Types Packs/Day Years [...] do you attend taoist or Never 2021 rastafari services? Do you [...] Date Recorded Female 12/02/2021 5:19 PM RAILROAD OPERATOR documented as of this encounter Last [...] CHIEF COMPLAINT / REASON FOR VISIT Lulu aMta is a 28 y.o. female who presents [...] Primary documented in this encounter Care Teams Backup Administrative Coordinator Relationship Specialty Start Date End Date Elsewhere, Pcp PCP - General Family Medicine 01/08/18 01/12/21 documented as of this encounter
--- OUTSIDE RECORDS SUMMARY | 2022-07-14 08:20 | XMS_ITS | Encounter Summary ---
:1990 Author Organization [facility] Address [address] [place] [address] Care Team Providers Name Role Phone Elsewhere, Pcp Primary Care Provider Unavailable Reason for Visit Reason Comments Facial Pain Pt presents for eval of sinu s pain, congestion, throat pain and claire ear pain. sick for 3 1/2 weeks . No known fever. Using OTC sudafed and afrin without relief. Encounter Details Date Type Department Care Team Description 09/09/2019 Emergency [place] Emergency Sigrid Forbes (Primary Dx); Department D, M.D. Infection Upper Respiratory Viral [address] [place] [facility] [place] [phone] (Wo rk) Social History Tobacco Use Types [...] do you attend anabaptist or Never 2021 scientologist services? Do you [...] at Date Recorded Female 12/02/2021 5:19 PM EARLY CHILDHOOD documented as of this encounter Last Filed Vital Signs Vital Sign Reading Time Taken Comments Blood Pressure 135/101 09/09/2019 9:30 AM EARLY CHILDHOOD Pulse 75 09/09/2019 9:30 AM EARLY CHILDHOOD Temperature 36 ??C (96.8 ??F) 09/09/2019 9:30 AM EARLY CHILDHOOD Respiratory Rate 18 09/09/2019 9:30 AM EARLY CHILDHOOD Oxygen Saturation 96% 09/09/2019 9:30 AM EARLY CHILDHOOD Inhaled Oxygen Concentration - - Weight 72.6 kg (160 lb) 09/09/2019 9:39 AM EARLY CHILDHOOD Height 152.4 cm (5') 09/09/2019 9:39 AM EARLY CHILDHOOD Body Mass Index 31.25 09/09/2019 9:39 AM EARLY CHILDHOOD documented in this encounter Discharge Instructions Discharge InstructionsTomSigrid remy M.D. - 09/09/2019 9:41 AM EARLY CHILDHOOD Return to the Emergency Department if you [...] clinic by calling the appointment center at [phone]. Thank you for choosing [facility] for your care. It was a pleasure taking care of you today in our Emergency Department. Y CHILDHOOD AttachmentsThe following attachments cannot be sent through Care Everywhere. Sinus Rinse Zuiw-jo-Hylz (Luxembourgish)Sinusitis Adult Colm-qv-Drql (Luxembourgish) documented in this encounter Medications at Time [...] Forbes M.D. 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 09/09/19946 Y CHILDHOOD documented in this encounter Plan of Treatment Not on filedocumented as of this encounter Visit Diagnoses Diagnosis Sinusitis - Primary Infection Upper Respiratory Viral documented in this encounter Care Teams Window Glass Cutter Off Relationship Specialty Start Date End Date Elsewhere, Pcp PCP - General Family Medicine 01/08/18 01/12/21 documented as of this encounter
--- OUTSIDE RECORDS SUMMARY | 2022-07-14 08:20 | XMS_ITS | Encounter Summary ---
:1990 Author Organization [facility] Address [address] [place] [address] Care Team Providers Name Role Phone Elsewhere, Pcp Primary Care Provider Unavailable Reason for Referral Outpatient (Routine) - Closed Specialty Diagnoses / Procedures Referred By Contact Refer red To Contact Diagnoses [facility] Ben Arce M.D. [address] [place] [address] Referral ID Status Reason Start Date Expiration Visits Visits Date Requested Authorized [id number] Closed Continuity of 10/06/2020 10/06/2021 1 1 Care R REPAIRER Reason for Visit Reason Comments Communication referral Encounter Details Date Type Department Care Team Description 10/06/2020 Clinical Communication Department of Ben Arce Comm unication Family Medicine in M.DMaribell (referral ) [place] [address] [facility] [address] [facility] [phone] Social History Tobacco Use Types Packs/Day Years [...] do you attend buddhist or Never 2021 temple services? Do you [...] at Date Recorded Female 12/02/2021 5:19 PM FILER REPAIRER documented as of this encounter Miscellaneous Notes Telephone Encounter - Wilma Montelongo R.N. - 10/06/2020 4:17 PM CST Pt advised that referral was faxed to [facility]: [phone] R REPAIRER Telephone Encounter - Ben Arce M.D. - 10/06/2020 2:55 PM CST External referral order placed. Please fax for patient. Thanks. It should be printed in the office printer. Thanks. R REPAIRER Telephone Encounter - Ilene Gautam - 10/06/2020 [...] referral for her to see [facility] Dentist in [place]. She is on a restricted program through insurance and they will only cover this if referred by Dr. Arce. She is having a tooth pulled on Sunday. Please fax to fax #[phone]. Please call her to let her know if this is done. Thank you. I will send this information to the appropriate staff member who will look into your concern. Is there anything else I can help you with today? Thank you for calling [facility]. R REPAIRER documented in this encounter Plan of Treatment Not on filedocumented as of this encounter Visit Diagnoses Diagnosis [facility] - Primary documented in this encounter Care Teams 3D Technologist Relationship Specialty Start Date End Date Elsewhere, Pcp PCP - General Family Medicine 01/08/18 01/12/21 documented as of this encounter
--- OUTSIDE RECORDS SUMMARY | 2022-07-14 08:20 | XMS_ITS | Encounter Summary ---
:1990 Author Organization [facility] Address [address] [place] [address] Care Team Providers Name Role Phone Elsewhere, Pcp Primary Care Provider Unavailable Reason for Visit Physical Therapy (Routine) - Denied Specialty Diagnoses / Procedures Referred By Contact Refer red To Contact Diagnoses Tendonitis Loulou Teresa APRN, [facility] Procedures PT Evaluate and treat C.N.P. [address] [place] [address] Referral ID Status Reason Start Date Expiration Date Visits Requ ested Visits Authorized [id number] Denied 06/08/2020 10/21/2020 1 0 Encounter Details Date Type Department Care Team Description 06/30/2020 Comprehensive Visit Department of Physical Loulou Metz APRN, C.N.P. [address] [place] [phone] Tendonitis Elbow (Primary Dx); Medicine and Yunior Robins P.TMaribell [address] [place] [phone] Tendonitis Rehabilitation in [place], [place] [address] [place] [phone] Social History Tobacco Use Types Packs/Day Years [...] do you attend buddhism or Never 2021 episcopal services? Do you belong to any clubs or No 11/20/2021 organizations such as buddhism groups, unions, fraZoombu or athletic groups, or school groups? How [...] at Date Recorded Female 12/02/2021 5:19 PM INFORMATION CONSULTANT documented as of this encounter Consult Notes [...] upper extremity pain/tendinitis Onset Date: 06/08/20 Payor: [facility] [place] CARE / Plan: [facility] CARE RESTRICTED PLAN / Product Type: Medicaid HMO / [facility] Visit Count: 1 PERTINENT MEDICAL / [...] Patient works 40 hours at the local [employer]. Patient has a 7-1/2-year-old son. 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 Patient works the [...] Department of Physical Medicine and Rehabilitation in [address] [address] Dept: [phone] RMATION CONSULTANT documented in this encounter Plan of Treatment Not on filedocumented as of this encounter Visit Diagnoses Diagnosis Tendonitis Elbow - Primary Tendonitis documented in this encounter Care Teams Jewel Bearing Broacher Relationship Specialty Start Date End Date Elsewhere, Pcp PCP - General Family Medicine 01/08/18 01/12/21 documented as of this encounter
--- OUTSIDE RECORDS SUMMARY | 2022-07-14 08:20 | XMS_ITS | Encounter Summary ---
:1990 Author Organization [facility] Address [address] [place] [address] Care Team Providers Name Role Phone Elsewhere, Pcp Primary Care Provider Unavailable Reason for Visit MRI/CAT/PET Scan (Routine) - Closed Specialty Diagnoses / Procedures Referred By Contact Refer red To Contact Radiology Diagnoses Pain Cervical Esther Andrea, TRANSPLANTER ORCHID, [facility] Region Procedures CT Cervical Spine without IV Contrast C.N.P., D.N.P. [address] [place] [address] Referral ID Status Reason Start Date Expiration Date Visits Requ ested Visits Authorized [id number] Closed 08/01/2019 07/31/2020 1 1 Encounter Details Date Type Department Care Team Description 08/01/2019 Hospital Encounter Department of Radiology Eliazar Andrea britt, in [facility] FATOU, C.N.P., [address] [place] D.N.P. [place], [place] [phone] [place] [phone] [place] [phone] Social History Tobacco Use Types Packs/Day Years [...] 11/20/2021 organizations such as islam groups, unions, fraJawsome Dive Adventures or athletic groups, or school groups? How [...] at Date Recorded Female 12/02/2021 5:19 PM KNITTING MACHINE FIXER documented as of this encounter Medications at [...] Computed Tomography ARZ LOS, Neuroradiology [facility] Specimen (Source) Anatomical Collection Method [...] on filedocumented in this encounter Care Teams Juvenile Officer Relationship Specialty Start Date End Date Elsewhere, Pcp PCP - General Family Medicine 01/08/18 01/12/21 documented as of this encounter
--- OUTSIDE RECORDS SUMMARY | 2022-07-14 08:20 | XMS_ITS | Encounter Summary ---
:1990 Author Organization [facility] Address [address] [place] [address] Care Team Providers Name Role Phone Elsewhere, Pcp Primary Care Provider Unavailable Reason for Referral MRI/CAT/PET Scan (Routine) - Closed Specialty Diagnoses / Procedures Referred By Contact Refer red To Contact Radiology Diagnoses Pain Cervical Esther Andrea APRN, [facility] Region Procedures CT Thoracic Spine without IV Contrast C.N.P., D.N.P. [address] [place] [address] Referral ID Status Reason Start Date Expiration Date Visits Requ ested Visits Authorized [id number] Closed 08/01/2019 07/31/2020 1 1 Reason for Visit MRI/CAT/PET Scan (Routine) - Closed Specialty Diagnoses / Procedures Referred By Contact Refer red To Contact Radiology Diagnoses Pain Cervical Emre, FATOU Santana, [facility] Region Procedures CT Thoracic Spine without IV Contrast C.N.P., D.N.P. [address] [place] [address] Referral ID Status Reason Start Date Expiration Date Visits Requ ested Visits Authorized [id number] Closed 08/01/2019 07/31/2020 1 1 Encounter Details Date Type Department Care Team Description 08/01/2019 Hospital Encounter Department of Radiology Eliazar Andrea, Pain Cervical [place] APRN C.N.P., [address] [facility] [place], [place] [address] [place] [address] [place], [place] [phone] Social History Tobacco Use Types Packs/Day [...] do you attend mormonism or Never 2021 sikh services? Do you [...] at Date Recorded Female 12/02/2021 5:19 PM RUG SAMPLE BEVELER documented as of this encounter Medications at [...] Cervical documented in this encounter Care Teams Meter Changes Records Clerk Relationship Specialty Start Date End Date Elsewhere, Pcp PCP - General Family Medicine 01/08/18 01/12/21 documented as of this encounter
--- OUTSIDE RECORDS SUMMARY | 2022-07-14 08:20 | XMS_ITS | Encounter Summary ---
:1990 Author Organization [facility] Address [address] [place] [address] Care Team Providers Name Role Phone Elsewhere, Pcp Primary Care Provider Unavailable Reason for Visit Reason Comments Sinusitis Encounter Details Date Type Department Care Team Description 01/10/2020 Office Visit Urgent Care, [facility], Sin usitis Acute [place], in [place], FATOU, C.N.P., (Samina pendleton Dx) [place] D.N.P. [address] [place] [address] [phone] Social History Tobacco Use Types Packs/Day Years [...] do you attend anabaptist or Never 2021 sikhism services? Do you [...] Date Recorded Female 12/02/2021 5:19 PM MANAGER FILE documented as of this encounter Last Filed [...] Body Mass Index 30.4 12/26/2019 9:26 AM MANAGER FILE documented in this encounter Patient Instructions Patient [...] bacteria. Still, most people seen in the [facility] for upper respiratory infectionor sinusitis symptoms are [...] and replace them as recommended by the site surveyor. Note: Having your humidity too high (more [...] help open sinuses and allow easier breathing. Puqp-btc-[id number] treatments* In addition to the previous suggestions, you may get relief for nasal and sinus obstruction or discomfort by taking non-prescription, qgeg-dew-scmltwz (OTC) medications. Many OTC medications combine a [...] [facility], [place] [facility] ([facility]). All rights reserved. [id number] documented in this encounter Progress Notes Esther [...] Primary documented in this encounter Care Teams Plasma Processing Technician Relationship Specialty Start Date End Date Elsewhere, Pcp PCP - General Family Medicine 01/08/18 01/12/21 documented as of this encounter
--- OUTSIDE RECORDS SUMMARY | 2022-07-14 08:20 | XMS_ITS | Encounter Summary ---
:1990 Author Organization [facility] Address [address] [place] [address] Care Team Providers Name Role Phone Elsewhere, Pcp Primary Care Provider Unavailable Reason for Referral Outpatient (Routine) - Closed Specialty Diagnoses / Procedures Referred By Contact Refer red To Contact Emergency Medicine Diagnoses Pain Neck Strain Neck Initial Contusion Leg Initial Left Derrek Leon M.D. [facility] Region [address] [place] [address] Referral ID Status Reason Start Date Expiration Date Visits Requ ested Visits Authorized [id number] Closed 08/01/2019 07/31/2020 1 1 Reason for Visit Reason Comments Neck Pain Pt presents from Urgent care for evaluation of neck pain and tingling of left leg. 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 Muscle Strain (New Zealander)Cervical Sprain ([place] Zealander)Contusion ([place] Zealander)documented in this encounter Medications at Time of [...] Feet documented in this encounter Care Teams Home Health Travel Ot Relationship Specialty Start Date End Date Elsewhere, Pcp PCP - General Family Medicine 01/08/18 01/12/21 documented as of this encounter
--- OUTSIDE RECORDS SUMMARY | 2022-07-14 08:20 | XMS_ITS | Encounter Summary ---
:1990 Author Organization [facility] Address [address] [place] [address] Care Team Providers Name Role Phone Elsewhere, Pcp Primary Care Provider Unavailable Reason for Visit Reason Comments Hand Injury pt presents with injury to l eft hand, pt states she was holding onto a door knob yesterday at work when someone pushed the door open and smashed her hand Swelling noted. Encounter Details Date Type Department Care Team Description 12/26/2019 Emergency [place] [facility] Sigrid Forbes ontusion Hand Initial Department Minoo Cervantes Left (Primary Dx) [address] [place] [phone] [phone] (Wo rk) Social History Tobacco Use Types [...] do you attend judaism or Never 2021 holiness services? 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 documented as of this encounter Last Filed Vital Signs Vital Sign Reading Time Taken Comments Blood Pressure 128/90 12/26/2019 10:18 AM ZIPPER TRIMMER Pulse 78 12/26/2019 10:18 AM ZIPPER TRIMMER Temperature 37 ??C (98.6 ??F) 12/26/2019 10:18 AM ZIPPER TRIMMER Respiratory Rate 16 12/26/2019 10:18 AM ZIPPER TRIMMER Oxygen Saturation 100% 12/26/2019 10:18 AM ZIPPER TRIMMER Inhaled Oxygen Concentration - - Weight 70.8 kg (156 lb 1.4 oz) 12/26/2019 9:26 AM ZIPPER TRIMMER Height 155 cm (5' 1.02) 12/26/2019 9:26 AM ZIPPER TRIMMER Body Mass Index 29.47 12/26/2019 9:26 AM ZIPPER TRIMMER documented in this encounter Discharge Instructions Discharge InstructionsToSigrid geronimo M.D. - 12/26/2019 9:47 AM ZIPPER TRIMMER Return to the Emergency Department with any [...] clinic by calling the appointment center at [phone]. Thank you for choosing [facility] for your care. It was a pleasure taking care of you today in our Emergency Department. ER TRIMMER documented in this encounter Medications at Time [...] Forbes M.D. - 12/26/2019 9:37 AM CST [place] [facility] EMERGENCY DEPARTMENT ENCOUNTER Patient Name: [...] 9:49 AM Sigrid Forbes M.D. 12/26/19 1052 ER TRIMMER documented in this encounter Plan of Treatment Not on filedocumented as of this encounter Procedures Procedure Name Priority Date/Time Associated Comments Diagnosis DX HAND LEFT 3 RAD - Semiurgent 12/26/2019 9:39 Result s for this VIEWS (Fast; most ED AM ZIPPER TRIMMER procedure are in patients; some the results inpatients) section. documented in this encounter Results DX Hand Left 3 Views (12/26/2019 9:39 AM ZIPPER TRIMMER) Anatomical Region Laterality Modality Upper Extremity, Hand, Musculoskeletal RST LOS, Left Digital Radiography Musculoskeletal ARZ LOS, Muskuloskeletal FLA LOS Specimen (Source) Anatomical Collection Method Collection Time Re ceived Time Location / / Volume Laterality 12/26/2019 9:40 AM ZIPPER TRIMMER Impressions 12/26/2019 9:41 AM ZIPPER TRIMMER No acute radiographic abnormalities are demonstrated. Narrative 12/26/2019 9:41 AM ZIPPER TRIMMER EXAM: DX HAND LEFT 3 VIEWS COMPARISON: [...] documented in this encounter Care Teams Exchange Architect Relationship Specialty Start Date End Date Elsewhere, Pcp PCP - General Family Medicine 01/08/18 01/12/21 documented as of this encounter
--- OUTSIDE RECORDS SUMMARY | 2022-07-14 08:20 | XMS_ITS | Encounter Summary ---
:1990 Author Organization [facility] Address [address] [place] [address] Care Team Providers Name Role Phone Elsewhere, Pcp Primary Care Provider Unavailable Reason for Visit Reason Comments Amox Encounter Details Date Type Department Care Team Description 10/05/2020 Clinical Communication Department of Family Aguila Arias M.D. [facility] Medicine in [place] [address] [place], [place] [address] [facility] [address] [place], [place] [phone] [address] (Work) [phone] Social History Tobacco Use Types Packs/Day Years [...] do you attend yarsanism or Never 2021 temple services? Do you [...] Date Recorded Female 12/02/2021 5:19 PM LICENSED DIRECT ENTRY MIDWIFE documented as of this encounter Miscellaneous Notes Addendum Note - Aguila Arce M.D. - 10/05/2020 4:11 PM LICENSED DIRECT ENTRY MIDWIFE Addended by: AGUILA ARCE on: 10/05/2020 04:11 PM Modules accepted: Orders NSED DIRECT ENTRY MIDWIFE Addendum Note - Dali Bird R.M.A. - 10/05/2020 4:09 PM LICENSED DIRECT ENTRY MIDWIFE Addended by: DALI BIRD on: 10/05/2020 04:09 PM Modules accepted: Orders NSED DIRECT ENTRY MIDWIFE Telephone Encounter - Dali Bird R.M.A. - 10/05/2020 4:03 PM LICENSED DIRECT ENTRY MIDWIFE Pt's sister is calling on behalf of sister stating that she is restricted to Dr Arce and needs her amox filled. She saw the dentist today, Dr Kelsea Gamino and he prescribed Amox 500 mg. Take 2 tabs STAT and one tab TID till gone #31. NSED DIRECT ENTRY MIDWIFE documented in this encounter Plan of Treatment Not on filedocumented as of this encounter Visit Diagnoses Not on filedocumented in this encounter Care Teams Sewing Machine Tester Relationship Specialty Start Date End Date Elsewhere, Pcp PCP - General Family Medicine 01/08/18 01/12/21 documented as of this encounter
--- OUTSIDE RECORDS SUMMARY | 2022-07-14 08:20 | XMS_ITS | Encounter Summary ---
:1990 Author Organization [facility] Address [address] [place] [address] Care Team Providers Name Role Phone Elsewhere, Pcp Primary Care Provider Unavailable Reason for Visit Reason Comments Arm Injury pt presents with left arm (e lbow area) pain after falling this morning around 0730. Pt fell outside on icy pavement. No other injuries. Pt did work all day at [employer]. Encounter Details Date Type Department Care Team Description 12/14/2020 Emergency [place] [facility] CalderonBull M, Inj ury Arm Initial Left Department M.D. 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 documented as of this encounter Last Filed Vital Signs Vital Sign Reading Time Taken Comments Blood Pressure 149/105 12/14/2020 6:00 PM MEAT COUNTER WORKER Pulse 68 12/14/2020 6:10 PM MEAT COUNTER WORKER Temperature 37.1 ??C (98.8 ??F) 12/14/2020 6:00 PM MEAT COUNTER WORKER Respiratory Rate 16 12/14/2020 6:00 PM MEAT COUNTER WORKER Oxygen Saturation 97% 12/14/2020 6:10 PM MEAT COUNTER WORKER Inhaled Oxygen Concentration - - Weight 71.8 kg (158 lb 4.6 oz) 12/14/2020 5:24 PM MEAT COUNTER WORKER Height 152 cm (4' 11.84) 12/14/2020 5:24 PM MEAT COUNTER WORKER Body Mass Index 31.08 12/14/2020 5:24 PM MEAT COUNTER WORKER documented in this encounter Discharge Instructions AttachmentsThe following attachments cannot be sent through Care Everywhere.RICE Therapy for Routine Care of Injuries [id number] (Bengali)documented in this encounter Medications at Time [...] as of this encounter ED Notes Bull aClderon M.D. - 12/14/2020 5:21 PM CST SUBJECTIVE CHIEF COMPLAINT/REASON FOR VISIT Arm Injury (pt presents with left arm (elbow area) pain after falling this morning around 0730. Pt fell outside on icy pavement. No other injuries. Pt did work all day at [employer]. ) HISTORY OF PRESENT ILLNESS 30-year-old female [...] the fall. She went to work at [employer], where she work throughout the day, though [...] Arm Initial Left Bull Calderon M.D. 12/14/201810 COUNTER WORKER documented in this encounter Plan of Treatment Not on filedocumented as of this encounter Procedures Procedure Name Priority Date/Time Associated Comments Diagnosis DX WRIST LEFT 3+ RAD - Semiurgent 12/14/2020 5:57 Resu lts for this VIEWS (Fast; most ED PM MEAT COUNTER WORKER procedure are in patients; some the results inpatients) section. DX SHOULDER LEFT RAD - Semiurgent 12/14/2020 5:54 Resu lts for this 2+ VIEWS (Fast; most ED PM MEAT COUNTER WORKER procedure are in patients; some the results inpatients) section. DX ELBOW LEFT 3+ RAD - Semiurgent 12/14/2020 5:52 Resu lts for this VIEWS (Fast; most ED PM MEAT COUNTER WORKER procedure are in patients; some the results inpatients) section. documented in this encounter Results DX Wrist Left 3+ Views (12/14/2020 5:57 PM MEAT COUNTER WORKER) Anatomical Region Laterality Modality Upper Extremity, Wrist, Musculoskeletal RST LOS, Left Digital Radiography Musculoskeletal ARZ LOS, Muskuloskeletal FLA LOS Specimen (Source) Anatomical Collection Method Collection Time Re ceived Time Location / / Volume Laterality 12/14/2020 5:58 PM MEAT COUNTER WORKER Impressions 12/14/2020 5:59 PM MEAT COUNTER WORKER No acute radiographic abnormalities are demonstrated. Narrative 12/14/2020 5:59 PM MEAT COUNTER WORKER EXAM: DX WRIST LEFT 3+ VIEWS COMPARISON: [...] Shoulder Left 2+ Views (12/14/2020 5:54 PM MEAT COUNTER WORKER) Anatomical Region Laterality Modality Upper Extremity, Shoulder, Musculoskeletal RST LOS, Left Digital Radiography Musculoskeletal ARZ LOS, Muskuloskeletal FLA LOS Specimen (Source) Anatomical Collection Method Collection Time Re ceived Time Location / / Volume Laterality 12/14/2020 5:57 PM MEAT COUNTER WORKER Impressions 12/14/2020 5:58 PM MEAT COUNTER WORKER No acute radiographic abnormalities are demonstrated. Narrative 12/14/2020 5:58 PM MEAT COUNTER WORKER EXAM: DX SHOULDER LEFT 2+ VIEWS COMPARISON: [...] Elbow Left 3+ Views (12/14/2020 5:52 PM MEAT COUNTER WORKER) Anatomical Region Laterality Modality Upper Extremity, Elbow, Musculoskeletal RST LOS, Left Digital Radiography Musculoskeletal ARZ LOS, Muskuloskeletal FLA LOS Specimen (Source) Anatomical Collection Method Collection Time Re ceived Time Location / / Volume Laterality 12/14/2020 5:56 PM MEAT COUNTER WORKER Impressions 12/14/2020 5:57 PM MEAT COUNTER WORKER No acute radiographic abnormalities are demonstrated. Narrative 12/14/2020 5:57 PM MEAT COUNTER WORKER EXAM: DX ELBOW LEFT 3+ VIEWS COMPARISON: [...] tablet 1,000 mg Given 12/14/2020 5:28 PM MEAT COUNTER WORKER 1,000 mg (TYLENOL) 1,000 mg, oral, Once, On Sun12/14/20 at 1721, For 1 dose documented in this encounter Active and Recently Administered Medications Times are shown in MEAT COUNTER WORKER. Scheduled Medication Order 12/12/2020 12/13/2020 12/14/2020 acetaminophen tablet 1,000 mg (TYLENOL) (COMPLETED) 1728 (Given - Provider: Nita Maira, R.N.) 1,000 mg, oral, Once, On Sun12/14/20 at 1721, For 1 dose documented in this encounter Care Teams Cooler Room Worker Relationship Specialty Start Date End Date Elsewhere, Pcp PCP - General Family Medicine 01/08/18 01/12/21 documented as of this encounter
--- OUTSIDE RECORDS SUMMARY | 2022-07-14 08:20 | XMS_ITS | Encounter Summary ---
:1990 Author Organization [facility] Address [address] [place] [address] Care Team Providers Name Role Phone Elsewhere, Pcp Primary Care Provider Unavailable Reason for Referral Outpatient (Routine) - Closed Specialty Diagnoses / Procedures Referred By Contact Refer red To Contact Neurology Diagnoses Contusion Leg Initial Left Numbness Ben Arce M.D. [facility] Region [address] [place] [address] Referral ID Status Reason Start Date Expiration Date Visits V isits Requested Authorized [id number] Closed Specialty 08/11/2019 08/10/2020 1 1 Services Required Reason for Visit Reason Comments Follow-up ED 08[facility]01 [facility] Outpatient (Routine) - Closed Specialty Diagnoses / Procedures Referred By Contact Refer red To Contact Emergency Medicine Diagnoses Pain Neck Strain Neck Initial Contusion Leg Initial Left Derrek Leon M.D. [facility] Region [facility] [place] [address] Referral ID Status Reason Start Date Expiration Date Visits Requ ested Visits Authorized [id number] Closed 08/01/2019 07/31/2020 1 1 Encounter Details Date Type Department Care Team Description 08/11/2019 Office Visit Department of Ben Metzger M.D. Pain Neck (Primary Dx); Medicine in [facility] [address] Strain Neck Initial; [place], [place] Contusion Leg Initial Left; [address] [place] [address] Numbness [place], [place] [phone] [address] (Work) [phone] Social History Tobacco Use Types Packs/Day Years [...] do you attend pentecostalism or Never 2021 muslim services? 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
--- OUTSIDE RECORDS SUMMARY | 2022-07-14 08:20 | XMS_ITS | Encounter Summary ---
:1990 Author Organization [facility] Address [address] [place] [address] Care Team Providers Name Role Phone Elsewhere, Pcp Primary Care Provider Unavailable Reason for Visit Reason Comments Wrist Pain 30 y/o f presents with R wri st and hand pain since . Pt says is sharp and radiates up her ar m, no injury, has been taking advil with some relief. Encounter Details Date Type Department Care Team Description 05/30/2020 Emergency [place] Emergency Sigrid Forbes endofrantz Forearm Department D, M.D. (Primary Dx) [address] [place] [phone] (Wo rk) Social History Tobacco Use Types [...] do you attend worship or Never 2021 faith services? 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 Thank you for choosing [facility] for your care. It was a [...] Forbes M.D. - 05/30/2020 12:11 PM CDT [place] [facility] EMERGENCY DEPARTMENT ENCOUNTER Patient Name: [...] Primary documented in this encounter Care Teams Television Repair Teacher Relationship Specialty Start Date End Date Elsewhere, Pcp PCP - General Family Medicine 01/08/18 01/12/21 documented as of this encounter
--- OUTSIDE RECORDS SUMMARY | 2022-07-14 08:21 | XMS_ITS | Encounter Summary ---
:1990 Author Organization [facility] Address [address] [place] [address] Care Team Providers Name Role Phone Unavailable Primary Care Provider Unavailable Encounter Details Date Type Department Care Team Description 06/14/2017 Hospital Encounter HX [facility] MAQN Essence Yin M.D. [address] [place], [place] [phone] (Wo rk) Social History [...] do you attend mandaen or Never 2021 anglican services? Do you [...] at Date Recorded Female 12/02/2021 5:19 PM MED AIDE documented as of this encounter Last [...] 06/14/2017 9:06 PM CDT ED Depart Summary [facility] Emergency Department Clinical Discharge Summary PERSON INFORMATION Name DILLAN MATA Age 27 Years 1990 12:00 AM Sex Female Language Japanese PCP PCP, ELSEWHERE Marital Status Unknown Visit Id Visit Reason Foot injury - Minor; FOOT PAIN Specialty Enc Type Emergency Med Service Emergency Medicine Referred by Track Group AAKASHMonica ED Discharge 06/14/2017 7:45 PM Tracking Id [id number] Checkout 06/14/2017 7:45 PM Checkin 06/14/2017 6:17 PM Acuity 4 -Less Urgent Dispo Type * Discharged to Home or Self Care Arrival 06/14/2017 6:17 PM Reg Status LOS 000 01:28 Address: [address] [place] [phone] Comment: PROVIDER INFORMATION Provider Role Provider Contact Time CHAVA KUHN WIRE STEWARD Nurse 06/14/17 18:44 CHU ADKINS MD ED Provider 06/14/17 18:52 ANDREW BROCK WIRE STEWARD Nurse 06/14/17 19:21 DIAGNOSIS Sprain Foot Initial L Comment: PATIENT EDUCATION INFORMATION Instructions: SPRAIN FOOT Follow up: With: Address: When: Follow up with primary care in 1 week if not improving. Return to the ED for increasing pain or swelling. Within As Needed Source: [facility] POWERCHART Document Id: [id number] Andrew Brock R.N. - 06/14/2017 9:06 PM CDT ED Discharge Instructions [address] [address] Name: DILLAN MATA Date of : 1990 12:00 AM Visit Date: 06/14/2017 6:17 PM [facility] Number: [phone] Address: [address] [facility] [phone] Primary Care Provider: PCPBHARATHI IMPORTANT: [facility] in [place] would like to thank you for allowing [...] become cold, blue, numb, or tingly ?? [id number] [facility], [address] [place] [address]. All rights reserved. This information is not [...] if you dont have one. Go to [email or web address] and click on Create Your Account. Then, follow the directions to complete the online form. Youll be asked for your [facility] number which you can find at [...] a ride home with a responsible democrat. All, DILLAN MATA , or responsible democrat have received this [...] a ride home with a responsible democrat. I, DILLAN MATA , or responsible democrat have received this information and my questions have been answered. I have discussed any challenges I see with this plan with the nurse or physician. Patient Signature or Responsible Republican/Relationship Date Time Provider Signature Date Time This document has images extracted. Please consider using [employer] for all your patient education needs. Source: [employer] Document Id: [id number] Andrew Brock R.N. - 06/14/2017 7:45 PM CDT ED Disposition Summary ED Disposition Summary Entered On: 06/14/2017 20:33 CDT Performed On: 06/14/2017 19:45 CDT by ANDREW BROCK WIRE STEWARD Disposition Summary Present in Room During Exam/Procedure : Alone Mode of Discharge : Ambulatory Transportation : Private vehicle Discharge From ED With : Home Med List Printed Discharge Instructions Given to Patient : Yes Patient Status at Discharge from ED : Improved 30 Minutes Critical Care : No ANDREW BROCK RN - 06/14/2017 20:33 CDT Source: [employer] Document Id: [id number] CDT!9 documented in this encounter Medications at [...] BROCK RN - 06/14/2017 21:05 CDT Source: [facility] Document Id: [id number] CDT!18 Andrew Brock R.N. - 06/14/2017 7:30 [...] BROCK RN - 06/14/2017 22:10 CDT Source: [facility] POWERCHART Document Id: [id number] CDT!5 Andrew Brock R.N. - 06/14/2017 7:21 [...] ANDREW BROCK RN - 06/14/2017 19:21 CDT [place] Coma Eye Opening Response [place] : Spontaneously Best Verbal Response [place] : Oriented Best Motor Response Sophie : [...] BROCK RN - 06/14/2017 19:21 CDT Source: [facility] Document Id: [id number] CDT!37 Chu Adkins M.D. - 06/14/2017 6:52 [...] Stat, Patient Bed, Once, 06/14/2017 18:53 CDT, [facility] Urology. Radiology results:* Final Report * Reason [...] Transcribed by: ROSHAN Technologist: NAYANA ESPOSITO RT(R)(CT) [id number] This document has an image Result type: XR Foot Left 3 or more views Result date: June 14, 2017 19:14 CDT Result status: Auth (Verified) Result title: XR Foot Left 3 or more views Performed by: DAVID SEPULVEDA MD on June 14, 2017 19:18 CDT Verified by: DAVID SEPULVEDA MD on June 14, 2017 19:18 CDT Encounter info: [id number], [facility], Emergency, 06/14/2017 - . [...] ADKINS MD On: 06/14/2017 07:35 PM Source: [facility] POWERCHART Document Id: {[id number]} Chava Kuhn R.N. - 06/14/2017 6:37 PM [...] PNED ; Probability: 0 ; Diagnosis Code: [id number] Triage Triage Treatments : Ice to affected [...] Ambulatory Track : Trauma Other Languages : Japanese Vital Signs Assessed : Yes Treatments Prior [...] Heart Rhythm : Regular Skin Color : Derby Skin Description : Normal Skin Temperature : [...] KUHN RN - 06/14/2017 18:37 CDT Source: [facility] [employer] Document Id: [id number] CDT!3 documented in this encounter Miscellaneous Notes Miscellaneous - Anrdew Brock RHarish - 06/14/2017 7:45 PM CDT Valuables/Belongings Valuables/Belongings Entered On: 06/14/2017 20:33 CDT Performed On: 06/14/2017 19:45 CDT by ANDREW BROCK RN Valuables/Belongings Belongings Sent Home With : All sent w/pt at d/c Home Medication Disposition : None brought in with patient ANDREW BROCK RN - 06/14/2017 20:32 CDT Source: [employer] Document Id: [id number] CDT!4 Miscellaneous - Conversion, Historical Provider Ser - 06/14/2017 7:45 PM CDT Coding Summary-Paper Based CODING DATE: 06/26/2017 FINAL AAKASH [place] [facility] STATUS: * [...] LORD Date Saved: 06/26/2017 09:17 am Source: [employer] Document Id: [id number] documented in this encounter Plan of Treatment [...]
--- OUTSIDE RECORDS SUMMARY | 2022-07-14 08:21 | XMS_ITS | Encounter Summary ---
:1990 Author Organization [facility] Address [address] [place] [address] Care Team Providers Name Role Phone Unavailable Primary Care Provider Unavailable Encounter Details Date Type Department Care Team Description 01/15/2017 Hospital Encounter HX [facility] MAPérezN Felix Guillen M.D. [address] [place], [place] [address] (Wo rk) Social History [...] do you attend caodaism or Never 2021 anabaptist services? 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 [address] [place] [address] Name: DILLAN MATA Date of : 1990 12:00 AM Visit Date: 01/15/2017 7:46 PM [facility] Number: [phone] Address: [address] [place] [id number] Primary Care Provider: PCP, BHARATHI IMPORTANT: [facility] in [place] would like to thank you for allowing [...] becomes cold, blue, numb or tingly ?? [id number] [facility], [address] [place] [address], [place] [address]. All rights reserved. This information is not [...] if you dont have one. Go to [email or web address] and click on Create Your Account. Then, follow the directions to complete the online form. Youll be asked for your [facility] number which you can find at [...] nurse or physician. Patient Signature or Responsible Democrat/Relationship Date Time Provider Signature Date Time IMPORTANT: [...] nurse or physician. Patient Signature or Responsible Democrat/Relationship Date Time Provider Signature Date Time Source: [employer] Document Id: [id number] Angelica Sandra R.N. - 01/15/2017 11:20 PM CDT ED Depart Summary [facility] Emergency Department Clinical Discharge Summary PERSON INFORMATION Name DILLAN MATA Age 26 Years 1990 12:00 AM Sex Female Language Sami PCP PCP, ELSEWHERE Marital Status Unknown Visit Id Visit Reason Hand pain-swelling; SWOLLEN RIGHT HAND Specialty Enc Type Emergency Med Service Emergency Medicine Referred by Track Group MAQN ED Discharge 01/15/2017 11:10 PM Tracking Id [id number] Checkout 01/15/2017 11:10 PM Checkin 01/15/2017 7:46 PM Acuity 4 -Less Urgent Dispo Type * Discharged to Home or Self Care Arrival 01/15/2017 7:46 PM Reg Status LOS 000 03:24 Address: [address] [place] [phone] Comment: PROVIDER INFORMATION Provider Role Provider Contact Time ANGELICA SANDRA ED Nurse 01/15/17 19:57 NIKOS MENDEZ MD ED Provider 01/15/17 20:09 DIAGNOSIS Contusion Hand Initial R Comment: PATIENT EDUCATION INFORMATION Instructions: CONTUSION, Hand Follow up: With: Address: When: Follow up with primary care provider Within As Needed Comments: Call for follow up appointment. If symptoms worsen. Source: [facility] POWERCHART Document Id: [id number] documented in this encounter Medications at Time [...] ANGELICA SANDRA - 01/15/2017 23:19 CDT Source: [employer] Document Id: [id number] CDT!9 Angelica Sandra R.N. - 01/15/2017 11:05 [...] ANGELICA SANDRA - 01/15/2017 23:19 CDT Source: [employer] Document Id: [id number] CDT!9 Angelica Sandra R.N. - 01/15/2017 11:02 PM CDT ED Nurse Reassess ED Nurse Reassess Entered On: 01/15/2017 23:02 CDT Performed On: 01/15/2017 23:02 CDT by ANGELICA SANDRA Pain Assessment Pain Symptoms : Yes ANGELICA SANDRA - 01/15/2017 23:02 CDT Comfort Measures Patient Response : Patient is waiting for discharge instructions. Pt's ride is here. ANGELICA SANDRA - 01/15/2017 23:02 CDT Griffith Griffiht Agitation Sedation Scale (RASS) : Alert and [...] Motor Response Sophie : Obeys simple commands Stroud Coma Score : 15 ANGELICA SANDRA 01/15/2017 23:02 CDT GI Reassess GI Patient Stated Symptoms : None ANGELICA SANDRA - 01/15/2017 23:02 CDT /OB Reassess Patient Stated Symptoms : None ANGELICA SANDRA - 01/15/2017 23:02 CDT Source: [employer] Document Id: [id number] CDT!34 Kim Bartholomew R.N. - 01/15/2017 10:00 [...] Brenda RN - 01/15/2017 22:00 CDT Source: [employer] Document Id: [id number] CDT!15 Nikos Mendez M.D. - 01/15/2017 9:52 [...] Patient Bed, Once, 01/15/2017 21:53 CDT, [facility] Urology. Radiology results:Emergency physician interpretation: Creator: Nikos Mendez Date: Jan 15, 2017 23:04:53 Subject: Preliminary ER Physician Findings (preliminary only - not final):Three-view x-ray of the right hand: Negative for fracture or dislocation. Brant Cotres Impression and Plan Diagnosis Contusion Hand Initial R (Discharge, Emergency medicine, Medical) Plan Condition: Stable. Disposition: Discharged: Time 01/15/2017 23:05:00, to home. 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 - 01/15/2017 8:55 PM [...] Response Sophie : Oriented Best Motor Response Stroud : Obeys simple commands Sophie Coma Score : 15 ANGELICA SANDRA 01/15/2017 20:55 CDT GI Reassess GI Patient Stated Symptoms : None ANGELICA SANDRA 01/15/2017 20:55 CDT Source: [facility] POWERCHART Document Id: [id number] CDT!3 Angelica Sandra R.N. - 01/15/2017 7:51 [...] PNED ; Probability: 0 ; Diagnosis Code: [id number] Triage Chief Complaint Description : Pt presents [...] vehicle, Ambulatory Track : Medical Languages : Sami Vital Signs Assessed : Yes GCS Assessed [...] kg/m2 ANGELICA SANDRA - 01/15/2017 19:51 CDT Stroud Coma Eye Opening Response Stroud : Spontaneously Best Verbal Response Stroud : Oriented Best Motor Response Stroud : Obeys simple commands Sophie Coma Score [...] None ANGELICA SANDRA 01/15/2017 19:51 CDT Source: [employer] Document Id: [id number] CDT!117 documented in this encounter Miscellaneous Notes Miscellaneous - Conversion, Historical Provider Ser - 01/15/2017 11:10 PM CDT Coding Summary-Paper Based CODING DATE: 01/22/2017 FINAL [facility] STATUS: * Discharged to Home or Self [...] DUONG Date Saved: 01/22/2017 10:08 am Source: [employer] Document Id: [id number] Miscellaneous - Angelica Sandra RMaribellN. - 01/15/2017 11:05 PM CDT Valuables/Belongings Valuables/Belongings Entered On: 01/15/2017 23:20 CDT Performed On: 01/15/2017 23:05 CDT by ANGELICA SANDRA Valuables/Belongings Belongings Sent Home With : all belongings sent home with patient ANGELICA SANDRA - 01/15/2017 23:20 CDT Source: [employer] Document Id: [id number] CDT!3 documented in this encounter Plan of [...]
--- OUTSIDE RECORDS SUMMARY | 2022-07-14 08:21 | XMS_ITS | Encounter Summary ---
:1990 Author Organization [facility] Address [address] [place] [address] Care Team Providers Name Role Phone Elsewhere, Pcp Primary Care Provider Unavailable Reason for Visit Reason Comments Sinus Symptoms 3 wks ago; started with ST, then ears and facial pressure. Pt using NetiPot. Sore Throat strep exposure at work Encounter Details Date Type Department Care Team Description 05/08/2018 Office Visit Express [facility] in [facility] Arely Ferrell Sinu sitis [place], [place] SUGARCANE PLANTER, C.N.P. (Primary Dx) [address] [place] [phone] Social History Tobacco Use Types Packs/Day Years [...] do you attend restorationist or Never 2021 presybeterian services? Do you [...] at Date Recorded Female 12/02/2021 5:19 PM BELTING INSPECTOR documented as of this encounter Last [...] care provider none identified. Recently moved to [place]. REVIEW OF SYSTEMS Constitutional: Negative for fever. [...] Primary documented in this encounter Care Teams Airplane Patrol Pilot Relationship Specialty Start Date End Date Elsewhere, Pcp PCP - General Family Medicine 01/08/18 01/12/21 documented as of this encounter
--- OUTSIDE RECORDS SUMMARY | 2022-07-14 08:21 | XMS_ITS | Encounter Summary ---
:1990 Author Organization [facility] Address [address] [place] [address] Care Team Providers Name Role Phone Elsewhere, Pcp Primary Care Provider Unavailable Reason for Referral Outpatient (Routine) - Closed Specialty Diagnoses / Procedures Referred By Contact Refer red To Contact Family Medicine Ben Arce M.D. [facility] [address] [place] [address] Referral ID Status Reason Start Date Expiration Date Visits Requ ested Visits Authorized [id number] Closed 01/28/2019 01/28/2020 1 1 Reason for Visit Reason Comments Follow-up Sprain knee Encounter Details Date Type Department Care Team Description 01/28/2019 Comprehensive Visit Department of Ben Metzger, Pain Knee Left (Primary Dx); [facility]; [place], [place] [address] Thrombosis Superficial Vein Lower Extremity Left [address] [place] [phone] Social History Tobacco Use Types Packs/Day Years [...] do you attend shinto or Never 2021 adventist services? Do you belong to any clubs or No 11/20/2021 organizations such as shinto groups, unions, [employer] or athletic groups, or school groups? 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 Procedure Note Timoteo Pardees M.D. - 01/28/2019Fo rmatting of this note [...] Leg documented in this encounter Care Teams Marketing Lead Relationship Specialty Start Date End Date Elsewhere, Pcp PCP - General Family Medicine 01/08/18 01/12/21 documented as of this encounter
--- OUTSIDE RECORDS SUMMARY | 2022-07-14 08:21 | XMS_ITS | Encounter Summary ---
:1990 Author Organization [facility] Address [address] [place] [address] Care Team Providers Name Role Phone Elsewhere, Pcp Primary Care Provider Unavailable Reason for Visit Reason Comments Headache frontal and middle of head Earache Cipriano ear pain Sore Throat drainage Sinus Problem over 1 month Encounter Details Date Type Department Care Team Description 01/07/2018 Office Visit [facility] in [facility] [place], [place] FATOU Samuel, C.N.P., (Primary Dx) [address] [place] [address] Social History Tobacco Use Types Packs/Day Years [...] do you attend yazidism or Never 2021 mandaen services? Do you [...] at Date Recorded Female 12/02/2021 5:19 PM ACETYLENE TORCH SOLDERER documented as of this encounter Last Filed [...] who goes to preschool. She works at [employer] with several people throughout theday. She has [...] Primary documented in this encounter Care Teams Certified Adaptive Physical Educator Relationship Specialty Start Date End Date Elsewhere, Pcp PCP - General Family Medicine 01/08/18 01/12/21 documented as of this encounter
--- OUTSIDE RECORDS SUMMARY | 2022-07-14 08:21 | XMS_ITS | Encounter Summary ---
:1990 Author Organization [facility] Address [address] [place] [address] Care Team Providers Name Role Phone Elsewhere, Pcp Primary Care Provider Unavailable Encounter Details Date Type Department Care Team Description 01/28/2019 Hospital Encounter Department of Radiology, Ben Arias M.D. [place] [address] [address] [place], [place] [facility] [address] [place] [address] [phone] Social History Tobacco Use Types Packs/Day Years [...] do you attend buddhist or Never 2021 yarsanism services? Do you [...] at Date Recorded Female 12/02/2021 5:19 PM GROUP THERAPIST documented as of this encounter Medications at [...] on filedocumented in this encounter Care Teams Grazing Aide Relationship Specialty Start Date End Date Elsewhere, Pcp PCP - General Family Medicine 01/08/18 3 documented as of this encounter
--- OUTSIDE RECORDS SUMMARY | 2022-07-14 08:21 | XMS_ITS | Encounter Summary ---
:1990 Author Organization [facility] Address [address] [place] [address] Care Team Providers Name Role Phone Elsewhere, Pcp Primary Care Provider Unavailable Reason for Visit Reason Comments Sore Throat pt with 2 1/2 week history o f sinus congestion now presents with sore throat. Throat pain started about 4 days ago, and is getting worse every day. Encounter Details Date Type Department Care Team Description 09/22/2018 Emergency [place] [facility] Marissa Mccormack, Catie lawsonnicole Acute Department D.O. (Primary Dx) [address] [place] [phone] Social History Tobacco Use Types Packs/Day Years [...] do you attend nondenominational or Never 2021 hoahaoism services? Do you [...] at Date Recorded Female 12/02/2021 5:19 PM MORTAR MAKER documented as of this encounter Last Filed Vital Signs Vital Sign Reading Time Taken Comments Blood Pressure 128/88 09/22/2018 9:00 AM MORTAR MAKER Pulse 88 09/22/2018 9:00 AM MORTAR MAKER Temperature 37.5 ??C (99.5 ??F) 09/22/2018 9:00 AM MORTAR MAKER Respiratory Rate 16 09/22/2018 9:00 AM MORTAR MAKER Oxygen Saturation 99% 09/22/2018 9:00 AM MORTAR MAKER Inhaled Oxygen Concentration - - Weight 71.9 kg (158 lb 8.2 oz) 09/22/2018 8:10 AM MORTAR MAKER Height 157 cm (5' 1.81) 09/22/2018 8:10 AM MORTAR MAKER Body Mass Index 29.17 09/22/2018 8:10 AM MORTAR MAKER documented in this encounter Discharge Instructions Discharge InstructionsBuMarissa lopez D.O. - 09/22/2018 8:59 AM CST Take the steroids daily, and take ibuprofen and/or tylenol as needed for pain. You should return to the ED for dehydration, if you are more swollen, have difficulty breathing or cannot swallow. AR MAKER AttachmentsThe following attachments cannot be sent through Care Everywhere.Sore Throat (Ukrainian)documented in this encounter Medications at Time of [...] Pharyngitis Acute Marissa Mccormack D.O. 09/22/18 0917 AR MAKER documented in this encounter Plan of Treatment Not on filedocumented as of this encounter Procedures Procedure Name Priority Date/Time Associated Diagnosis Comme nts RAPID STREP A STAT 09/22/2018 8:37 AM Results for this SCREEN MORTAR MAKER procedure are i n the results section. BACTERIAL CULTURE, STAT 09/22/2018 8:37 AM Res ults for this THROAT MORTAR MAKER procedure are i n the results section. documented in this encounter Results Bacterial Culture, Throat (09/22/2018 8:37 AM MORTAR MAKER) [facility] Method Time Signature Throat No growth of 09/24/2018 [facility] Culture Streptococcus 7:07 AM MORTAR MAKER HEALTH pyogenes [facility] LAB Specimen Anatomical Collection Method Collection Time Receive d Time (Source) Location / / Volume Laterality Throat Swab 09/22/2018 8:37 AM 8 3:28 MORTAR MAKER PM MORTAR MAKER Marissa Mccormack D.O. LAB MICROBIOLOGY - GENERAL O RDERABLES Performing Organization Address City/State/ZIP Code Phon e Number [facility] [address] [place] [address] LAB Rapid Strep A Screen (09/22/2018 8:37 AM MORTAR MAKER) P athologist Signature Rapid Strep A Negative Negative 09/22/2018 [facility] Screen 8:52 AM [facility] LAB Specimen Anatomical Collection Method Collection Time Receive d Time (Source) Location / / Volume Laterality Varies (Throat) 09/22/2018 8:37 AM 2017 8:41 MORTAR MAKER AM MORTAR MAKER Marissa Mccormack D.O. LAB MICROBIOLOGY - GENERAL O RDERABLES Performing Organization Address City/State/ZIP Code Phon e Number [address] [address] [place] [facility] documented in this encounter Visit Diagnoses Diagnosis Pharyngitis Acute - Primary documented in this encounter Care Teams Gettering Filament Machine Operator Relationship Specialty Start Date End Date Elsewhere, Pcp PCP - General Family Medicine 01/08/18 01/12/21 documented as of this encounter
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
--- OUTSIDE RECORDS SUMMARY | 2022-07-14 08:21 | XMS_ITS | Encounter Summary ---
:1990 Author Organization [facility] Address [address] [place] [address] Care Team Providers Name Role Phone Elsewhere, Pcp Primary Care Provider Unavailable Reason for Visit Reason Comments Sinus Symptoms 30 + days ago Encounter Details Date Type Department Care Team Description 12/12/2018 Office Visit [facility] in [facility] Mario Savage, Inf ection [place], [place] P.A.-C. Respiratory (Primary [address], Dx) [facility] C [address] [place], [place] [phone] (Wo rk) Social History Tobacco Use Types [...] do you attend taoism or Never 2021 anglican services? Do you [...] at Date Recorded Female 12/02/2021 5:19 PM CYBER LEGAL ADVISOR documented as of this encounter Last Filed Vital Signs Vital Sign Reading Time Taken Comments Blood Pressure 136/92 12/12/2018 7:15 PM CYBER LEGAL ADVISOR Pulse 86 12/12/2018 7:15 PM CYBER LEGAL ADVISOR Temperature 36.9 ??C (98.4 ??F) 12/12/2018 7:15 PM CYBER LEGAL ADVISOR Respiratory Rate - - Oxygen Saturation 96% 12/12/2018 7:15 PM CYBER LEGAL ADVISOR Inhaled Oxygen Concentration - - Weight 72 kg (158 lb 11.7 oz) 12/12/2018 7:15 PM CYBER LEGAL ADVISOR Height - - Body Mass Index 31 10/31/2018 6:04 PM CYBER LEGAL ADVISOR documented in this encounter Patient Instructions Patient [...] urgent care if worsening. Mario Savage P.A.-C. R LEGAL ADVISOR documented in this encounter Progress Notes Mario [...] urgent care if worsening. Mario Savage P.A.-C. R LEGAL ADVISOR documented in this encounter Plan of Treatment Not on filedocumented as of this encounter Visit Diagnoses Diagnosis Infection Upper Respiratory - Primary documented in this encounter Care Teams Coordinating Producer Relationship Specialty Start Date End Date Elsewhere, Pcp PCP - General Family Medicine 01/08/18 01/12/21 documented as of this encounter
--- OUTSIDE RECORDS SUMMARY | 2022-07-14 08:21 | XMS_ITS | Encounter Summary ---
:1990 Author Organization [facility] Address [address] [place] [address] Care Team Providers Name Role Phone Elsewhere, Pcp Primary Care Provider Unavailable Reason for Visit Reason Comments PAYAL has had symptoms for 3-4 we eks Muscle Pain chest and back -05/31, has been using ibuprofen Encounter Details Date Type Department Care Team Description 10/31/2018 Emergency [place] [facility] Valerie Malone, Infec kori Upper Department MMaribellDMaribell Respiratory (Primary [address] Dx) [place] [address] [phone] Social History Tobacco Use Types Packs/Day Years [...] do you attend latter-day or Never 2021 yarsani services? Do you [...] Date Recorded Female 12/02/2021 5:19 PM SUPERVISOR PARK WORKERS documented as of this encounter Last Filed Vital Signs Vital Sign Reading Time Taken Comments Blood Pressure 134/95 10/31/2018 6:52 PM SUPERVISOR PARK WORKERS Pulse 81 10/31/2018 6:06 PM SUPERVISOR PARK WORKERS Temperature 37.2 ??C (99 ??F) 10/31/2018 6:52 PM SUPERVISOR PARK WORKERS Respiratory Rate 20 10/31/2018 6:06 PM SUPERVISOR PARK WORKERS Oxygen Saturation 98% 10/31/2018 6:06 PM SUPERVISOR PARK WORKERS Inhaled Oxygen Concentration - - Weight 73.3 kg (161 lb 9.6 oz) 10/31/2018 6:04 PM SUPERVISOR PARK WORKERS Height 152.4 cm (5') 10/31/2018 6:04 PM SUPERVISOR PARK WORKERS Body Mass Index 31.56 10/31/2018 6:04 PM SUPERVISOR PARK WORKERS documented in this encounter Discharge Instructions AttachmentsThe following attachments cannot be sent through Care Everywhere. Upper Respiratory Infection Adult Cppx-mb-Fqge (Nepali)documented in this encounter Medications at Time of [...] Oct 31 1837 Infection Upper Respiratory Valerie Maloen M.D. 10/31/18 1840 RVISOR PARK WORKERS documented in this encounter Plan of Treatment Not on filedocumented as of this encounter Visit Diagnoses Diagnosis Infection Upper Respiratory - Primary documented in this encounter Care Teams Merit System Director Relationship Specialty Start Date End Date Elsewhere, Pcp PCP - General Family Medicine 01/08/18 01/12/21 documented as of this encounter
== END 2022-07-14 08:15 | disposition home or self-care (01) ==
LOC: US 08:15
PROVIDERS: Visit Provider Obstetrics & Gynecology
DX: O13.3 Gestational [pregnancy-induced] hypertension without significant proteinuria, third trimester (principal); Z3A.35 35 weeks gestation of pregnancy
CPT/HCPCS: 76819

== ENCOUNTER 2022-07-17 12:43 | Outpatient (CLI) | payer MEDICAID, SELFPAY ==
[2022-07-17] VITALS (10 sets, daily range): BP systolic 128–140; BP diastolic 77–98; PULSE 68–95; RESP 16; TEMP 36.7; O2SAT 97–98
--- OUTSIDE RECORDS SUMMARY | 2022-07-17 12:47 | XMS_ITS | Encounter Summary ---
:1990 Author Organization [facility] Address [address], [place] [address] Care Team Providers Name Role Phone Max, Heydi Jaquelin RENNER Primary Care Provider [phone] Reason for Visit Reason Comments DIABETES,GESTATIONAL Encounter Details Date Type Department Care Team Description 06/30/2022 Telemedicine [facility] ADULT DIAB SVCS Yahaira Arrieta stational diabetes MEL Garcia RDN, PAVAN, DU mellitus (GDM), [address] [place] [address] antepartum, [place] [address] [address] gestational diabetes [phone] [place], [place] method of control [address] unspecified (Primary [phone] (Wo rk) Dx) Social History Tobacco Use [...] patient: home Time spent on video in zfay-ad-eokt contact with patient, if applicable: 20 mins Charted and educated by Lisa Lovelace RN Co-educated by Yahaira Arrieta RDN, [facility] Education content taught can be found in the diabetes education smartform documented in this encounter Plan of Treatment Not on filedocumented as of this encounter Visit Diagnoses Diagnosis Gestational diabetes mellitus (GDM), ant epartum, gestational diabetes method of control unspecified - Primary documented in this encounter Care Teams Motion Picture Narrator Relationship Specialty Start Date End Date Heydi Santana PA-C PCP - General 11/14/10 [address] [place] [address] documented as of this encounter
--- OUTSIDE RECORDS SUMMARY | 2022-07-17 12:47 | XMS_ITS | Clinical Summary ---
:1990 Author Organization [facility] Address [address], [place] [address] Care Team Providers Name Role Phone Heydi Santana PA-C Primary Care Provider [phone] Source Comments You are receiving this [...] for each transition of care or referral. Doctor Evidence Allergies No known active allergies Medications Medication [...] Description 07/14/2022 Telemedicine Diabetes Program Yahaira Arrieta, [facility], LD, CDCES mellitus (GDM ), [...] 37.2 ??C (99 ??F) 10/25/2011 1:10 PM SENIOR SCIENTIST Respiratory Rate 16 10/25/2011 1:10 PM SENIOR SCIENTIST Oxygen Saturation 99% 10/25/2011 1:10 PM SENIOR SCIENTIST Inhaled Oxygen Concentration - - Weight 68.5 [...] Dates Phone Addre ss Type Group [facility] [id number] 2021-Present [phone] CLAIMS Medicaid [address] [place] [address] Lulu Mata Personal/Family Self [address] (Home) [place], [place] [phone] (Work) Lulu Mata Personal/Family Self 1990 [address] (Home) [place] [phone] [place] (Work) [address] Care Teams Tar Heat Exchanger Cleaner Relationship Specialty Start Date End Date Heydi Santana PA-C PCP - General 11/14/10 [address] [place] [address]
--- OUTSIDE RECORDS SUMMARY | 2022-07-17 12:47 | XMS_ITS | Clinical Summary ---
:1990 Author Organization [facility] [place] [address] Care Team Providers Name Role Phone Genny Lazo MD Primary Care Provider [phone] Allergies No known active allergies Medications [...] Father Premature CHD (under age 60) Father [place] Allergies Mother Hypertension Mother Allergies Sister 4 [...] uts 05m/ lb 9.2 oz) Delivery Location: [facility] Comments: Induced preeclampsia Current OB Episode Summary Episode Dates Estimated Date of Pregravid Weight TWG (As of ) Delivery 04/04/2022 - Present Unknown (07/17/2022) Last Filed Vital Signs Vital Sign Reading [...] Height 152.4 cm (5') 09/23/2015 2:13 PM TRUCK CAR AND BUS CLEANER Body Mass Index 31.05 09/23/2015 2:13 PM TRUCK CAR AND BUS CLEANER Plan of Treatment Upcoming Encounters Date Type [...] TASHI AKINS MA 2012-Present [address] [place] [address] (Home) [place], [place] [phone] (Work) Lulu Mata Personal/Family Self [address] (Home) [place], [place] [phone] (Work) Advance Directives Latest Code Status on File Code Status Date Activated Date Inactivated Comments Full Code 12/05/2012 6:17 AM 12/07/2012 9:39 PM Full Code 12/05/2012 1:03 AM 12/05/2012 6:17 AM Full Code 12/03/2012 4:10 PM 12/05/2012 1:03 AM Full Code 11/30/2012 9:24 PM 12/01/2012 3:09 AM Full Code 11/30/2012 9:03 PM 11/30/2012 9:24 PM Care Teams Assessment Coordinator Relationship Specialty Start Date End Date Genny Lazo MD PCP - General Family Practice 07/02/[address] [place] [address] [place] [phone] (work)
--- OUTSIDE RECORDS SUMMARY | 2022-07-17 12:47 | XMS_ITS | Encounter Summary ---
:1990 Author Organization [facility] Address [address], [place] [address] Care Team Providers Name Role Phone Heydi Santana Jaquelin RENNER Primary Care Provider [phone] Encounter Details Date Type Department Care Team Description 03/12/2012 Lab Visit [facility] y , incidental [address] [place] [address] Social History Tobacco Use Types [...] - 03/12/2012 1:33 PM CDT Performed at [facility], [address] [facility], [place] [address] Zack Yun MD LAB_1 Performing Organization Address City/State/ZIP Code Phon e Number HP CONVERSION documented in this encounter Visit Diagnoses Diagnosis , incidental state, incidental documented in this encounter Care Teams Coroner Transport Technician Relationship Specialty Start Date End Date Heydi Santana PA-C PCP - General 11/14/10 [address] [place] [address] documented as of this encounter
--- OUTSIDE RECORDS SUMMARY | 2022-07-17 12:47 | XMS_ITS | Encounter Summary ---
:1990 Author Organization [facility] Address [address], [place] [address] Care Team Providers Name Role Phone Max Heydi Hammer PA-C Primary Care Provider [phone] Reason for Visit Reason Comments DIABETES,GESTATIONAL Encounter Details Date Type Department Care Team Description 07/14/2022 Telemedicine IDC ADULT DIAB SVCS Yahaira Arrieta Ge stational diabetes MEL Garcia RDN, LD, CDCES mellitus (GDM), [address] [place] [address] antepartum, [place] [address] [address] gestational diabetes [phone] [place], [place] method of control [phone] unspecified (Primary [phone] (Wo rk) Dx) Social History Tobacco Use [...] patient: home Time spent on video in ryuy-ox-rdva contact with patient, if applicable: 17 minutes Education content taught can be found in the diabetes education smartform documented in this encounter Plan of Treatment Not on filedocumented as of this encounter Visit Diagnoses Diagnosis Gestational diabetes mellitus (GDM), ant epartum, gestational diabetes method of control unspecified - Primary documented in this encounter Care Teams Expanded Duty Dental Assistant Relationship Specialty Start Date End Date Heydi Santana PA-C PCP - General 11/14/10 [address] [place] [address] documented as of this encounter
--- OUTSIDE RECORDS SUMMARY | 2022-07-17 12:47 | XMS_ITS | Encounter Summary ---
:1990 Author Organization [facility] Address [address], [place] [address] Care Team Providers Name Role Phone Heydi Santana Jaquelin RENNER Primary Care Provider [phone] Reason for Visit Reason Comments Test Request Encounter Details Date Type Department Care Team Description 03/12/2012 Office Visit Zack Quintanilla Misse d period (Primary Dx); Medicine , incidental [address] [facility] [address] [place] [address] [place] [phone] [address] Social History Tobacco Use Types Packs/Day [...] signed by Zack Yun MD at 03/13/12 0923 Author: Zack Yun MD Service: (none) Author Type: Physician Filed: 03/13/12 0926 Note Time: 03/12/12 140 Status: Signed Brokerage Office Manager: Zack Yun MD (Physician) NAME: DILLAN MATA MR#: [id number] CSN: [id number] AUTHENTICATING CLINICIAN: Zakc Yun MD CONFIRM #: [id number] LOC: 3602 CLINIC PROGRESS NOTE DATE OF [...] return as needed. SJC:MEDPérez C: CONFIRM #: [id number] documented in this encounter Plan of Treatment Not on filedocumented as of this encounter Visit Diagnoses Diagnosis Missed period - Primary Irregular menstrual cycle , incidental state, incidental documented in this encounter Care Teams Latex Caster Relationship Specialty Start Date End Date Heydi Santana PA-C PCP - General 11/14/10 [address] [place] [address] documented as of this encounter
--- OUTSIDE RECORDS SUMMARY | 2022-07-17 12:47 | XMS_ITS | Encounter Summary ---
:1990 Author Organization [employer] Address [address] [address] Care Team Providers Name Role Phone Heydi Santana PA-C Primary Care Provider [phone] Reason for Visit Reason Comments FOLLOW-UP,DIABETES Encounter Details Date Type Department Care Team Description 06/22/2022 Telemedicine [facility] [address] Dele[address] PA-C Gestational diabetes Endocrinology [address] [place] mellitus (GDM), [address] antepartum, [address] [place], [place] [address] method of control [address] unspecified (Primary [phone] Dx) Social History Tobacco Use Types Packs/Day [...] from the original note were not included. [facility]: [address] [place] [address] [phone], Nurse Line: [phone] Gestational Diabetes Visit Note June 22, 2022 [...] Primary documented in this encounter Care Teams Harvest Supervisor Relationship Specialty Start Date End Date Heydi Santana PA-C PCP - General 11/14/10 [address] [place] [address] documented as of this encounter
--- OUTSIDE RECORDS SUMMARY | 2022-07-17 12:47 | XMS_ITS | Encounter Summary ---
:1990 Author Organization [facility] Address [address], [place] [address] Care Team Providers Name Role Phone Heydi Santana PA-C Primary Care Provider [phone] Encounter Details Date Type Department Care Team Description 06/22/[address] [facility] [address] [facility] diabetes Endocrinology MD Reji mellitus (GDM), [address] [facility] [address] [facility] ant epartum, [address] gestational diabetes [facility] [place]od [place] control [phone] unspecified (Primary [phone] (Wo rk) Dx) Social History Tobacco Use [...] female seen in consultation, referred by OBGYN. [facility] in [place], [place]. Planning to deliver at [facility]. Currently at 32 weeks and [...] condition Both parents have hyperlipidemia. Works at [employer] Plans to work until close to due date. 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 Normal sensation in all [...] Patient will meet with Diabetes Education and Women'S Studies Lecturer after this visit today for instructions as [...] Primary documented in this encounter Care Teams Public Health Technician Relationship Specialty Start Date End Date Heydi Santana PA-C PCP - General 11/14/10 [address] [place] [address] documented as of this encounter
--- OUTSIDE RECORDS SUMMARY | 2022-07-17 12:47 | XMS_ITS | Encounter Summary ---
:1990 Author Organization [employer] Address [address] [address] Care Team Providers Name Role Phone Heydi Santana PA-C Primary Care Provider [phone] Reason for Visit Reason Comments Other Encounter Details Date Type Department Care Team Description 06/22/2022 Telephone [facility] [address]le[address] PA-C Other Endocrinology [address] [place] [address] [place] [address] [phone] Social History Tobacco Use Types Packs/Day Years [...] on filedocumented in this encounter Care Teams Cost Analyst Relationship Specialty Start Date End Date Heyid Santana PA-C PCP - General 11/14/10 [address] [place] [address] documented as of this encounter
--- OUTSIDE RECORDS SUMMARY | 2022-07-17 12:47 | XMS_ITS | Encounter Summary ---
:1990 Author Organization [employer] Address [address] [address] Care Team Providers Name Role Phone Max, Heydi Hammer PA-C Primary Care Provider [phone] Reason for Visit Reason Comments APPOINTMENT REQUEST Referral for GDM Encounter Details Date Type Department Care Team Description 06/07/[address] [facility] 38[address] Nurse, P3800 End APPOINTMENT REQUEST Endocrinology [address] (Referral for GDM) [address] [place] [phone] Social History Tobacco Use Types Packs/Day Years [...] 11:58 AM CDT Faxed referral rec'd from [facility] for GDM, records sent to [facility] doc documented in this encounter Plan of Treatment Not on filedocumented as of this encounter Visit Diagnoses Not on filedocumented in this encounter Care Teams Stave Machine Tender Relationship Specialty Start Date End Date Heydi Santana PA-C PCP - General 11/14/10 [address] [place] [address] documented as of this encounter
--- OUTSIDE RECORDS SUMMARY | 2022-07-17 12:47 | XMS_ITS | Encounter Summary ---
:1990 Author Organization [facility] Address [address], [place] [address] Care Team Providers Name Role Phone Heydi Santana PA-C Primary Care Provider [phone] Reason for Visit Reason Comments Chest Pain Encounter Details Date Type Department Care Team Description 10/25/2011 Hospital Encounter [facility] King sinusitis, unspecified; Care MD Kim Unspecified asthma, with exacerbation [address] [facility] [address] [place], [place] [phone] [address] Social History Tobacco Use Types Packs/Day Years Used Date Smoking Tobacco: Never Alcohol Use Standard Drinks/Week Comments No 0 (1 standard drink = 0.6 oz pure alcoho l) Sex Assigned at Date Recorded Not on file documented as of this encounter Last Filed Vital Signs Vital Sign Reading Time Taken Comments Blood Pressure 123/78 10/25/2011 1:10 PM EDUCATION AND OUTREACH COORDINATOR Pulse 84 10/25/2011 1:10 PM EDUCATION AND OUTREACH COORDINATOR Temperature 37.2 ??C (99 ??F) 10/25/2011 1:10 PM EDUCATION AND OUTREACH COORDINATOR Respiratory Rate 16 10/25/2011 1:10 PM EDUCATION AND OUTREACH COORDINATOR Oxygen Saturation 99% 10/25/2011 1:10 PM EDUCATION AND OUTREACH COORDINATOR Inhaled Oxygen Concentration - - Weight - [...] Date:11/04/11, Frequency:2 TIMES DAILY *No Administrations Recorded ATION AND OUTREACH COORDINATOR documented in this encounter Plan of Treatment Not on filedocumented as of this encounter Visit Diagnoses Diagnosis Acute sinusitis, unspecified Unspecified asthma, with exacerbation (H RC) Unspecified asthma, with exacerbation documented in this encounter Care Teams Lawn Care Specialist Relationship Specialty Start Date End Date Heydi Santana PA-C PCP - General 11/14/10 [address] [place] [address] documented as of this encounter
--- OUTSIDE RECORDS SUMMARY | 2022-07-17 12:48 | XMS_ITS | Encounter Summary ---
:1990 Author Organization [facility] Address [address], [place] [address] Care Team Providers Name Role Phone Heydi Santana PA-C Primary Care Provider [phone] Encounter Details Date Type Department Care Team Description 02/20/2011 PN Conversion Only [place] [facility] Jose Carlos Aguirre MD [facility] [address] [facility] [address] [facility] bairon [place], [place] [address] [place], [place] [phone] (Wo rk) Social History Tobacco Use Types Packs/Day Years Used Date Smoking Tobacco: Never Alcohol Use Standard Drinks/Week Comments No 0 (1 standard drink = 0.6 oz pure alcoho l) Sex Assigned at Date Recorded Not on file documented as of this encounter Plan of Treatment Not on filedocumented as of this encounter Visit Diagnoses Not on filedocumented in this encounter Care Teams Textile Conservator Relationship Specialty Start Date End Date Heydi Santana PA-C PCP - General 11/14/10 [address] [place], [place] [address] documented as of this encounter
--- OUTSIDE RECORDS SUMMARY | 2022-07-17 12:48 | XMS_ITS | Encounter Summary ---
:1990 Author Organization [employer] (formerly [employer]) Address [address] [place] [address] Care Team Providers Name Role Phone MaxHeydi christensen Jaquelin RENNER Primary Care Provider [phone] Reason for Visit Reason Comments Sore Throat HEADACHE Encounter Details Date Type Department Care Team Description 05/25/2011 Office Visit [facility] Angelique Wilkinson MD Acute pharyngitis (Primary Dx); Practice [address] Reactive airway disease; [address] [place], [place] Sore throat [place], [place] [phone] Social History Tobacco Use Types Packs/Day Years [...] THROAT CULTURE ONLY (05/25/2011 2:07 PM CDT) Bounce Imaging Method Time Signature Grp A Culture Negative NEG Times pace Intelligent TechnologyUNM CANCER CENTERRNA Networks Final Specimen Anatomical Collection Method Collection Time Receive d Time (Source) Location / / Volume Laterality 05/25/2011 2:07 PM 1 2:24 CDT PM CDT Angelique Wilkinson MD LAB_1 Performing Organization Address City/[facility] Phon e Number [employer] [phone] [facility] [address] [place] [address] STREP GRP A, RAPID SCREEN (05/25/2011 2:07 PM CDT) Bounce Imaging Method Time Signature Grp A Rapid Negative NEG [facility] HOSPITALRNA Networks Screen Specimen Anatomical Collection Method Collection Time Receive d Time (Source) Location / / Volume Laterality 05/25/2011 2:07 PM 1 2:24 CDT PM CDT Angelique Wilkinson MD LAB_1 Performing Organization Address City/[facility] Phon e Number [employer] [phone] [facility] [address] [place] [address] documented in this encounter Visit Diagnoses Diagnosis Acute pharyngitis - Primary Reactive airway disease (HRC) Unspecified asthma Sore throat Acute pharyngitis documented in this encounter Care Teams Dark Room Attendant Relationship Specialty Start Date End Date Heydi Santana PA-C PCP - General 11/14/10 [address] [place] [address] documented as of this encounter
--- OUTSIDE RECORDS SUMMARY | 2022-07-17 12:48 | XMS_ITS | Encounter Summary ---
:1990 Author Organization [employer] Address [address] [place] [address] Care Team Providers Name Role Phone Max Heydi Jaqueiln RENNER Primary Care Provider [phone] Reason for Visit Reason Comments Sore Throat Encounter Details Date Type Department Care Team Description 02/11/2011 Office Visit [facility] (Primary Dx) [address] [phone] Social History Tobacco Use [...] culture obtained. ASSESSMENT: Pharyngitis. PLAN: Symptomatic care. Cjtw-[id number] Tylenol or ibuprofen 4 times a day [...] THROAT CULTURE ONLY (02/11/2011 3:33 PM CDT) [employer] Method Time Signature Grp A Culture Negative NEG [facility] CENTERMabLyte Final Specimen Anatomical Collection Method Collection Time Receive d Time (Source) Location / / Volume Laterality 02/11/2011 3:33 PM 1 3:57 CDT PM CDT Belkis Sanchez APRN CLINICAL EDUCATION MANAGER LAB_1 Performing Organization Address [facility] Phon e Number [employer] [phone] [facility] [address] [place] [phone] STREP GRP A, RAPID SCREEN (02/11/2011 3:33 PM CDT) [employer] Method Time Signature Grp A Rapid Negative NEG [facility]ITAL[facility] Screen Specimen Anatomical Collection Method Collection Time Receive d Time (Source) Location / / Volume Laterality 02/11/2011 3:33 PM 1 3:57 CDT PM CDT Belkis Sanchez APRN CLINICAL EDUCATION MANAGER LAB_1 Performing Organization Address [facility] Phon e Number [employer] [phone] [facility] [address] [place] [address] documented in this encounter Visit Diagnoses Diagnosis Sore throat - Primary Acute pharyngitis documented in this encounter Care Teams Laborer Yard Relationship Specialty Start Date End Date Heydi Santana PA-C PCP - General 11/14/10 [address] [place] [address] documented as of this encounter
--- OUTSIDE RECORDS SUMMARY | 2022-07-17 12:48 | XMS_ITS | Encounter Summary ---
:1990 Author Organization [employer] Address [address] [place] [address] Care Team Providers Name Role Phone Joel Anguiano MD Primary Care Provider Reason for Visit Reason Comments CONTROL COUNSELING Encounter Details Date Type Department Care Team Description 09/27/[address] [facility] Candy Perez control Practice AZURDO (Primary Dx) [address] [facility] [place], [place] [address] S [phone] [place] [address] Social History Tobacco Use Types Packs/Day Years Used Date Smoking Tobacco: Never Alcohol Use Standard Drinks/Week Comments No 0 (1 standard drink = 0.6 oz pure alcoho l) Sex Assigned at Date Recorded Not on file documented as of this encounter Last Filed Vital Signs Vital Sign Reading Time Taken Comments Blood Pressure 110/82 09/27/2010 9:16 AM BUILDING ENGINEER Pulse 76 09/27/2010 9:16 AM BUILDING ENGINEER Temperature - - Respiratory Rate - - Oxygen Saturation - - Inhaled Oxygen Concentration - - Weight 62.1 kg (137 lb) 09/27/2010 9:16 AM BUILDING ENGINEER Height - - Body Mass Index [...] change/worsen, or do not improve as expected. DING ENGINEER documented in this encounter Progress Notes Candy [...] Apply topically. Twice daily ??? Triamcinolone Acetonide, [id number], (TRIAMCINOLONE ACETONIDE EX) cream use as needed [...] together. Candy Perez PA-C 10:39 AM 09/27/2010 DING ENGINEER documented in this encounter Plan of Treatment Not on filedocumented as of this encounter Procedures Procedure Name Priority Date/Time Associated Diagnosis Comme nts TEST Waiting 09/27/2010 9:39 AM control Result s for this (URINE) BUILDING ENGINEER procedure are i n the results section. documented in this encounter Results TEST (URINE) (09/27/2010 9:39 AM BUILDING ENGINEER) Component Value Ref Test Analysis Performed At [facility] Range Method Time Signature HCG, Urine Negative [facility] Negative = <25 mIU/ml If is suspected, suggest repeat in 48-72 hours or confirm results with a quantitative hCG test. Specimen Anatomical Collection Method Collection Time Receive d Time (Source) Location / / Volume Laterality Urine specimen 09/27/2010 9:39 AM 010 9:49 (specimen) BUILDING ENGINEER AM BUILDING ENGINEER Candy Perez PA-C LAB_1 Performing Organization Address City/State/ZIP Code Phon e Number [facility] [phone] [facility] [address] [phone] documented in this encounter Visit Diagnoses Diagnosis control - Primary Unspecified contraceptive management documented in this encounter Care Teams Ambulance Mechanic Relationship Specialty Start Date End Date Joel Anguiano MD PCP - General 01/17/10 11/13/10 [address] [place] [address] documented as of this encounter
--- OUTSIDE RECORDS SUMMARY | 2022-07-17 12:48 | XMS_ITS | Encounter Summary ---
:1990 Author Organization [employer] Address [address] [place] [address] Care Team Providers Name Role Phone Joel Anguiano MD Primary Care Provider Reason for Visit Reason Comments Sore Throat EARACHE left HEADACHE Encounter Details Date Type Department Care Team Description 10/05/2010 Office Visit [facility] Heydi Santana ( upper respiratory infection) (Primary Dx); Practice [facility] Hammer Sore throat; [address] Rhinitis; [place], [place] [address] [place], [place] TMJ disorder [phone] [id number] Social History Tobacco Use Types Packs/Day Years Used Date Smoking Tobacco: Never Alcohol Use Standard Drinks/Week Comments No 0 (1 standard drink = 0.6 oz pure alcoho l) Sex Assigned at Date Recorded Not on file documented as of this encounter Last Filed Vital Signs Vital Sign Reading Time Taken Comments Blood Pressure 116/74 10/05/2010 1:46 PM ROLLER PAINTER Pulse 76 10/05/2010 1:46 PM ROLLER PAINTER Temperature 37.1 ??C (98.7 ??F) 10/05/2010 1:46 PM ROLLER PAINTER Respiratory Rate 16 10/05/2010 1:46 PM ROLLER PAINTER Oxygen Saturation - - Inhaled Oxygen Concentration - - Weight 62 kg (136 lb 9.6 oz) 10/05/2010 1:46 PM ROLLER PAINTER Height - - Body Mass Index - [...] candy/gum/tough meats to chew. Heydi Santana PA-C ER PAINTER documented in this encounter Progress Notes Sita Barker RN - 10/06/2010 4:17 PM ROLLER PAINTER Quick Note: Letter sent. Herminia Bakrer LPN Nurse for [facility] ER PAINTER Heydi Santana - 10/06/2010 8:32 AM ROLLER PAINTER Quick Note: Neg cx Heydi Santana PA-C ER PAINTER Heydi Santana - 10/05/2010 2:17 PM ROLLER PAINTER Quick Note: Reviewed neg strep with pt pending cx Heydi Santana PA-C ER PAINTER Heydi Santana - 10/05/2010 11:45 AM CST [...] to improve as anticipated. Heydi Santana PA-C ER PAINTER documented in this encounter Plan of Treatment Not on filedocumented as of this encounter Procedures Procedure Name Priority Date/Time Associated Diagnosis Comme nts STREP GRP A, RAPID Waiting 10/05/2010 1:52 PM Sore throat Res ults for this SCREEN ROLLER PAINTER procedure are i n the results section. STREP GRP A, THROAT Routine 10/05/2010 1:52 PM Re sults for this CULTURE ONLY ROLLER PAINTER procedure are i n the results section. documented in this encounter Results STREP GRP A, THROAT CULTURE ONLY (10/05/2010 1:52 PM ROLLER PAINTER) [facility] Method Time Signature Grp A Culture Negative NEG [facility] Final Specimen Anatomical Collection Method Collection Time Receive d Time (Source) Location / / Volume Laterality 10/05/2010 1:52 PM 0 2:05 ROLLER PAINTER PM ROLLER PAINTER Heydi Santana PA-C LAB_1 Performing Organization Address City/[facility]/ZIP Code Phon e Number [facility] [phone] [phone] STREP GRP A, RAPID SCREEN (10/05/2010 1:52 PM ROLLER PAINTER) [facility] gist Method Time Signature Grp A Rapid Negative NEG [facility] Screen Specimen Anatomical Collection Method Collection Time Receive d Time (Source) Location / / Volume Laterality 10/05/2010 1:52 PM 0 2:05 ROLLER PAINTER PM ROLLER PAINTER Heydi Santana PA-C LAB_1 Performing Organization Address [facility] Code Phon e Number [facility] [phone] [address] documented in this encounter Visit Diagnoses Diagnosis URI (upper respiratory infection) - Prim prosper Acute upper respiratory infections of un specified site Sore throat Acute pharyngitis Rhinitis Chronic rhinitis TMJ disorder Temporomandibular joint disorders, unspe cified documented in this encounter Care Teams Senior Asp Net Developer Relationship Specialty Start Date End Date Joel Anguiano MD PCP - General 01/17/10 11/13/10 [address] [place] [address] documented as of this encounter
--- OUTSIDE RECORDS SUMMARY | 2022-07-17 12:48 | XMS_ITS | Encounter Summary ---
:1990 Author Organization [employer] Address [address] [place] [address] Care Team Providers Name Role Phone Joel Anguiano MD Primary Care Provider Reason for Visit Reason Comments SKIN PROBLEM MOLE under rt arm Encounter Details Date Type Department Care Team Description 06/30/2010 Office Visit [facility] Sheng Leblanc D ermatitis (Primary Dx); Medicine MD Gerardo [address] [place], [place] [address] [place], [place] [phone] [address] Social History Tobacco Use Types Packs/Day Years [...] skin documented in this encounter Care Teams Latrine Cleaner Relationship Specialty Start Date End Date Joel Anguiano MD PCP - General 01/17/10 11/13/10 [address] [place] [address] documented as of this encounter
--- OUTSIDE RECORDS SUMMARY | 2022-07-17 12:49 | XMS_ITS | Encounter Summary ---
:1990 Author Organization [facility] Address [address] [place] [address] Care Team Providers Name Role Phone Ben Arce M.D. Primary Care Provider Reason for Visit Reason Comments facial pressure X 3 wks Encounter Details Date Type Department Care Team Description 07/09/2022 Office Visit Urgent Care, [facility], [facility], in [place], [place], C.N.P., (Samina pendleton Dx) [place] D.N.P. [address] [place] [phone] Social History Tobacco Use Types Packs/Day Years [...] do you attend mormonism or Never 2021 baptism services? 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 Acute Sinusitis (Korean)documented in this encounter Progress Notes Esther Andrea, [...] electronic medical record. ALLERGIES/CONTRAINDICATIONS Allergies Allergen Reactions [place] Pollen Itching and Wheezing OBJECTIVE VITAL SIGNS [...] documented as of this encounter Care Teams Underground Supervisor Relationship Specialty Start Date End Date Ben Arce M.D. PCP - General Family Medicine 01/13/[address] [place] [phone] documented as of this encounter
--- OUTSIDE RECORDS SUMMARY | 2022-07-17 12:49 | XMS_ITS | Encounter Summary ---
:1990 Author Organization [facility] Address [address] [place] [address] Care Team Providers Name Role Phone Heydi Santana Jaquelin RENNER Primary Care Provider [phone] Encounter Details Date Type Department Care Team Description 11/17/2003 [facility] Soumya Sorenson MD [place] [address] [facility] [address] [place] [address] [phone] Social History Tobacco Use Types Packs/Day Years Used Date Smoking Tobacco: Never Assessed Sex Assigned at Date Recorded Not on file documented as of this encounter Progress Notes Soumya Sorenson MD - 11/17/2003 12:01 AM CST Progress Notes signed by oSumya Sorenson MD at 06/01/048 Author: Soumya Sorenson MD Service: (none) Author Type: Physician Filed: 02/09/11 1824 Note Time: 11/17/03 0001 Status: Signed Pattern Storage Clerk: Soumya Sorenson MD (Physician) NAME: DILLAN MATA MR: [id number] ACCT: [id number] VISIT: [id number] DICTATING CLINICIAN: SOUMYA SORENSON MD JOB: [id number] CLINIC PROGRESS NOTE DATE OF VISIT: 11/17/2003 [...] Well-developed, well-nourished female in no acute distress. [id number] C: 12/01/03 11:11 DOCUMENT: [id number] documented in this encounter Plan of Treatment Not on filedocumented as of this encounter Visit Diagnoses Not on filedocumented in this encounter Care Teams Rougher For Cement Relationship Specialty Start Date End Date Heydi Santana PA-C PCP - General 11/14/10 [address] [place] [address] documented as of this encounter
--- OUTSIDE RECORDS SUMMARY | 2022-07-17 12:49 | XMS_ITS | Encounter Summary ---
:1990 Author Organization [facility] Address [address] [place] [address] Care Team Providers Name Role Phone Ben Arce M.D. Primary Care Provider Reason for Referral Outpatient (Routine) - Authorized Specialty Diagnoses / Procedures Referred By Contact Refer red To Contact Diagnoses Pain Back Pain Neck Ben Arce M.D. External, Referring [address] [place] [address] Referral ID Status Reason Start Expiration Visits Visits Date Date Requested Authorized [id number] Authorized Patient 03/01/2022 03/01/2023 1 1 Preference Reason for Visit Reason Comments Outside Order Insurance Referral Encounter Details Date Type Department Care Team Description 03/01/2022 Clinical Communication Department of Ben Arce, Outs [facility] Order Family Medicine in [place] (Insurance Referral) [place] [address] [place] [address] [facility] [address] [phone] Social History Tobacco Use Types Packs/Day Years [...] do you attend caodaism or Never 2021 mormonism services? Do you belong to any clubs or No 11/20/2021 organizations such as caodaism groups, unions, [email or web address] or athletic groups, or school groups? 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 Also faxed [facility] restricted forms for OB care [facility]. Thank you, Jossie Referrals 03/02/22 Lore called from [facility] [phone]. This referral has been processed. 03/03/22sla. Telephone Encounter - Ben Arce M.D. - 03/01/2022 3:07 PM CDT Order signed. Telephone Encounter - Jossie Ramos - 03/01/2022 2:[address] Arce, ORDER/LAB/REFERRAL REQUEST: Name of test/referral/order requested: [facility] [place] i [id number] Reason for request: Back and neck pain Date needed: 02/26/22 Order pended to this encounter, once signed we can submit the Restricted [facility] referral for insurance. Thank you, Jossie Referrals 03/01/22 documented in this encounter Plan of Treatment Not on filedocumented as of this encounter Visit Diagnoses Diagnosis Pain Back - Primary Pain Neck documented in this encounter Additional Health Concerns Assessment Noted Time PHQ-9 Depression Total Score: 4 12/20/2021 10:52 AM CS T documented as of this encounter Care Teams Anthropological Linguist Relationship Specialty Start Date End Date Ben Arce M.D. PCP - General Family Medicine 01/13/[address] [place] [address] documented as of this encounter
--- OUTSIDE RECORDS SUMMARY | 2022-07-17 12:49 | XMS_ITS | Encounter Summary ---
:1990 Author Organization [facility] [place] Address [address], [place] [address] Care Team Providers Name Role Phone Heydi Santana PA-C Primary Care Provider [phone] Encounter Details Date Type Department Care Team Description 11/02/2004 PN Conversion Only [facility] [id number] Social History Tobacco Use Types Packs/Day Years Used Date Smoking Tobacco: Never Assessed Sex Assigned at Date Recorded Not on file documented as of this encounter Plan of Treatment Not on filedocumented as of this encounter Visit Diagnoses Not on filedocumented in this encounter Care Teams Fuel Cell Systems Engineer Relationship Specialty Start Date End Date Heydi Santana PA-C PCP - General 11/14/10 [address] [place] [address] documented as of this encounter
--- OUTSIDE RECORDS SUMMARY | 2022-07-17 12:49 | XMS_ITS | Encounter Summary ---
:1990 Author Organization [employer] Address [address] [place] [address] Care Team Providers Name Role Phone Joel Anguiano MD Primary Care Provider Reason for Visit Reason Comments CONGESTION, NASAL Sore Throat EARACHE Encounter Details Date Type Department Care Team Description 04/30/2010 Office Visit [facility] Apple Sore roat (Primary Dx); [address] [place] URI (Upper Respiratory Infec tion) [address] [place], [place] [address] Social History Tobacco Use [...] THROAT CULTURE ONLY (04/30/2010 12:27 PM CDT) [facility] Method Time Signature Grp A Culture Negative NEG [facility] Final Specimen Anatomical Collection Method Collection Time Receive d Time (Source) Location / / Volume Laterality 04/30/2010 12:27 04/30/2010 PM CDT 12:35 PM CDT Alycia Hernadez MD LAB_1 Performing Organization Address City/State/ZIP Code Phon e Number [facility] [phone] [facility] [address] [place] [phone] STREP GRP A, RAPID SCREEN (04/30/2010 12:27 PM CDT) [facility] gist Method Time Signature Grp A Rapid Negative NEG [facility] Screen Specimen Anatomical Collection Method Collection Time Receive d Time (Source) Location / / Volume Laterality 04/30/2010 12:27 04/30/2010 PM CDT 12:35 PM CDT Alycia Hernadez MD LAB_1 Performing Organization Address City/State/ZIP Code Phon e Number [facility] [phone] [facility] [address] [phone] documented in this encounter Visit Diagnoses Diagnosis Sore throat - Primary Acute pharyngitis URI (upper respiratory infection) Acute upper respiratory infections of un specified site documented in this encounter Care Teams Separating Machine Operator Relationship Specialty Start Date End Date Joel Anguiano MD PCP - General 01/17/10 11/13/10 [address] [place] [address] documented as of this encounter
--- OUTSIDE RECORDS SUMMARY | 2022-07-17 12:49 | XMS_ITS | Encounter Summary ---
:1990 Author Organization [facility] Address [address] [place] [address] Care Team Providers Name Role Phone Ben Arce M.D. Primary Care Provider Encounter Details Date Type Department Care Team Description 03/27/2022 Ancillary Procedure Department of Cheikh Gautam For Obstetrics and Minoo Garcia Supervision O f Other Gynecology in Normal [place], [place] Unspecified [address] [facility] (HCC) [place] [address] Social History Tobacco Use Types [...] do you attend confucianism or Never 2021 mosque services? 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 PCP - General Family Medicine 01/13/21 [address] [facility] [place] [phone] documented as of this encounter
--- OUTSIDE RECORDS SUMMARY | 2022-07-17 12:49 | XMS_ITS | Encounter Summary ---
:1990 Author Organization [facility] Address [address] [place] [address] Care Team Providers Name Role Phone Ben Arce M.D. Primary Care Provider Reason for Visit Reason Comments Decreased Movement Other Back pain Auth/Cert Specialty Diagnoses / Procedures Referred By Contact Refer red To Contact Diagnoses Procedures Referral ID Status Reason Start Date Expiration Date Visits Requ ested Visits Authorized [id number] 1 1 Encounter Details Date Type Department Care Team Description 07/12/2022 Hospital Encounter [facility] Rylie Mcdowell [facility] [address] [facility] Trimester Single Floor [place], [place] Gestation (HCC) [address] [place] [address] [[id number] [place], [place] [phone] (ICD-10-CM)] [phone] (Work) (Primary Dx) [phone] Social History Tobacco Use Types Packs/Day Years [...] do you attend anabaptist or Never 2021 advent services? Do you [...] at Date Recorded Female 12/02/2021 5:19 PM SMASH FIXER documented as of this encounter Discharge Instructions AttachmentsThe following attachments cannot be sent through Care Everywhere. Preparing for Your Experience (Slovenian) labor (Slovenian)documented in this encounter Medications at Time [...] BLOOD 0 06/17/2022 SUGAR FOUR TIMES DAILY. amoxicillin-pot Take 1 tablet by 10 tablet 0 07/09/2022 clavulanate (Augmentin) mouth 2 (two) times 875-125 mg per a day for 5 days. tabletIndications: Sinusitis Acute documented as of this encounter Nursing Notes [...] arrival. Status update given to MD by sba underwriter andper MD pt is able to discharge to home. IV removed. Electronically signed by: Macrelle Vallecillo R.N. 07/12/22 8:36 PM CDT documented [...] Negative Negative mg/dL 07/12/2022 7:04 PM CDT JET PIERCER OPERATOR RG Ketones, QI(U) Negative Negative mg/dL 07/12/2022 7:04 PM C DT NPRG Bilirubin Negative Negative 07/12/2022 7:04 PM CDT NPRG pH 6.0 5.0 - 8.0 07/12/2022 7:04 PM CDT NPRG Specific [place] >=1.030 1.001 - 1.035 07/12/2022 7:04 PM [...] Cells 11-20 /hpf 07/12/2022 7:04 PM CDT JET PIERCER OPERATOR RG Bacteria Present (A) None Seen 07/12/2022 7:04 PM CDT NPRG Specimen Anatomical Collection Method Collection Time Receive d Time (Source) Location / / Volume Laterality Urine (Urine, 07/12/2022 6:46 PM 07/12/20 6:55 Midstream) CDT PM CDT Rylie Mcdowell M.D. LAB URINE ORDERABLES Performing Organization Address City/State/ZIP Code Phon e Number [facility] [address] [place] [address] [place] [address] [place] [address] [facility] [address] [place] documented in [...] documented as of this encounter Care Teams Press Washer Relationship Specialty Start Date End Date Ben Arce M.D. PCP - General Family Medicine 01/13/[address] [facility] [place] [address] documented as of this encounter
--- OUTSIDE RECORDS SUMMARY | 2022-07-17 12:49 | XMS_ITS | Encounter Summary ---
:1990 [facility] Address [address], [place] [address] Care Team Providers Name Role Phone Heydi Santana PA-C Primary Care Provider [phone] Encounter Details Date Type Department Care Team Description 12/07/2003 PN Conversion Only [place] CONVERSION [address] [facility] [place] [address] Social History Tobacco Use Types Packs/Day Years Used Date Smoking Tobacco: Never Assessed Sex Assigned at Date Recorded Not on file documented as of this encounter Plan of Treatment Not on filedocumented as of this encounter Visit Diagnoses Not on filedocumented in this encounter Care Teams Nurse Aide Relationship Specialty Start Date End Date Heydi Santana PA-C PCP - General 11/14/10 [address] [place] [place], [place] [address] documented as of this encounter
--- OUTSIDE RECORDS SUMMARY | 2022-07-17 12:49 | XMS_ITS | Encounter Summary ---
:1990 Author Organization [facility] Address [address] [address] Care Team Providers Name Role Phone Unassigned, Provider Primary Care Provider Unavailable Reason for Visit Reason Comments SORE THROAT, cough, chest cold Encounter Details Date Type Department Care Team Description 10/19/2009 Office Visit Urgent Care [facility] axillary Sinusitis (Primary Dx); [place] Acute Pharyngitis [address] [place], [place] [address] Social History Tobacco Use Types Packs/Day Years Used Date Smoking Tobacco: Never Assessed Sex Assigned at Date Recorded Not on file documented as of this encounter Last Filed Vital Signs Vital Sign Reading Time Taken Comments Blood Pressure 144/96 10/19/2009 7:00 PM MINING PLANT OPERATOR Pulse 78 10/19/2009 7:00 PM MINING PLANT OPERATOR Temperature 37.2 ??C (98.9 ??F) 10/19/2009 7:00 PM MINING PLANT OPERATOR Respiratory Rate 18 10/19/2009 7:00 PM MINING PLANT OPERATOR Oxygen Saturation - - Inhaled Oxygen Concentration - - Weight 64.6 kg (142 lb 6 oz) 10/19/2009 7:00 PM MINING PLANT OPERATOR Height - - Body Mass Index - - documented in this encounter Patient Instructions Patient InstructionsRyan Townsend - 10/19/2009 8:00 PM CST HP Sinusitis sheet given, emphasized saline rinses. Neti pot info and discussion given. NG PLANT OPERATOR documented in this encounter Progress Notes Xochilt Enriquez RN - 10/21/2009 6:14 PM MINING PLANT OPERATOR Quick Note: Strep culture results noted: Negative Nita Enriquez RN NG PLANT OPERATOR Ryan Townsend - 10/19/2009 7:28 PM CST [...] to improve as anticipated. Ryan Townsend MD NG PLANT OPERATOR documented in this encounter Plan of Treatment Not on filedocumented as of this encounter Procedures Procedure Name Priority Date/Time Associated Diagnosis Comme nts STREP GRP A, RAPID Waiting 10/19/2009 7:18 PM Acute Pharyngiti s Results for this SCREEN MINING PLANT OPERATOR procedure are i n the results section. STREP GRP A, THROAT Routine 10/19/2009 7:18 PM Acute Pharyngit is Results for this CULTURE ONLY MINING PLANT OPERATOR procedure are i n the results section. documented in this encounter Results STREP GRP A, THROAT CULTURE ONLY (10/19/2009 7:18 PM MINING PLANT OPERATOR) Patholo gist Method Time Signature Grp A Culture Negative NEG [facility] Final Specimen Anatomical Collection Method Collection Time Receive d Time (Source) Location / / Volume Laterality 10/19/2009 7:18 PM 9 7:22 MINING PLANT OPERATOR PM MINING PLANT OPERATOR Ryan Townsend MD LAB_1 Performing Organization Address [facility]/ZIP [facility] Phon e Number [facility] [phone] [facility] [address] [address] STREP GRP A, RAPID SCREEN (10/19/2009 7:18 PM MINING PLANT OPERATOR) [facility] gist Method Time Signature Grp A Rapid Negative NEG [facility] Screen Specimen Anatomical Collection Method Collection Time Receive d Time (Source) Location / / Volume Laterality 10/19/2009 7:18 PM 9 7:22 MINING PLANT OPERATOR PM MINING PLANT OPERATOR Ryan Townsend MD LAB_1 Performing Organization Address [facility] Phon e Number [facility] [phone] [phone] documented in this encounter Visit Diagnoses Diagnosis Acute maxillary sinusitis - Primary Acute pharyngitis documented in this encounter Care Teams Door Attendant Relationship Specialty Start Date End Date Unassigned, Provider PCP - General 08/17/09 01/16/[address] [place] [address] documented as of this encounter
--- OUTSIDE RECORDS SUMMARY | 2022-07-17 12:49 | XMS_ITS | Encounter Summary ---
:1990 Author Organization [facility] Address [address] [place] [address] Care Team Providers Name Role Phone Ben [...] Expiration Date Visits Requ ested Visits Authorized [id number] 1 1 Encounter Details Date Type Department Care Team Description 04/17/2022 Hospital Encounter [facility] Rylie Mcdowell, 23 Weeks Gestation [facility], [place] [address] [address] [place], [place] [phone] [address] (Work) [phone] Social History Tobacco Use Types Packs/Day Years [...] do you attend spiritism or Never 2021 church services? Do you [...] at Date Recorded Female 12/02/2021 5:19 PM PLASTIC CARD GRADER CARDROOM documented as of this encounter Last Filed [...] Category I tracing. No UTC's traced via [place]. RN palpated during one episode ofuterine cramping, [...] documented as of this encounter Care Teams Cam Maker Relationship Specialty Start Date End Date Ben Arce M.D. PCP - General Family Medicine 01/13/21 [address] [place] [phone] documented as of this encounter
--- OUTSIDE RECORDS SUMMARY | 2022-07-17 12:49 | XMS_ITS | Encounter Summary ---
:1990 Author Organization [facility] Address [address] [address] Care Team Providers Name Role Phone Heydi Santana PA-C Primary Care Provider [phone] Encounter Details Date Type Department Care Team Description 10/04/2004 PN Conversion Only [facility] [address] [place] [address] Social History Tobacco Use Types Packs/Day Years Used Date Smoking Tobacco: Never Assessed Sex Assigned at Date Recorded Not on file documented as of this encounter Plan of Treatment Not on filedocumented as of this encounter Visit Diagnoses Not on filedocumented in this encounter Care Teams Boiler Maker Relationship Specialty Start Date End Date Heydi Santana PA-C PCP - General 11/14/10 [address] [place], [place] [address] documented as of this encounter
--- OUTSIDE RECORDS SUMMARY | 2022-07-17 12:49 | XMS_ITS | Clinical Summary ---
:1990 Author Organization [facility] Address [address] [place] [address] Care Team Providers Name Role Phone Ben Arce M.D. Primary Care Provider Source Comments Patient records contain information from all sites at [facility]. For routine questions regarding patient records, call [phone] during business hours, M-F 8:00 AM - 5:00 PM Central Time. Record requests for emergency care only can be directed to [phone] at any time.[facility] Allergies Active Allergy Reactions Severity Noted Date Comments Paterson Pollen Itching, Wheezing 04/17/2022 Medications Medication Sig [...] Admin 0 05/01/2022 Active kit-large kit Instructions. famotidine (PEPCID) Take 1 tablet 30 tablet 3 03/01/202207/09 Discontinued 40 mg tablet (40 mg total) by mouth 2 (two) times a day. amoxicillin-pot Take 1 tablet 10 tablet 0 07/09/2022 clavulanate by mouth 2 (Augmentin) 875-125 (two) times a mg per day for 5 tabletIndications: days. Sinusitis Acute Active Problems Problem Noted Date Encounter For [...] COVID complete but needs b ooster/Flu declines Cream Gatherer: Pap NIL w/ neg HPV 11/2021 Aneuploidy [...] told me she is transferr ing to [place] because it is closer. History Of Falling [...] Hospital Encounter Labor and Delivery Rylie Mcdowell, Brennan seymour For M.D. Supervision Of Normal Unspe cified [...] do you attend confucianist or Never 2021 uatsdin services? Do you [...] Date Recorded Female 12/02/2021 5:19 PM EMBEDDED FIRMWARE DEVELOPER Last Filed Vital Signs Vital Sign Reading [...] this topic Medical Devices Implanted Type Area Supervisor Engine Assembly Device Shelf Model / Identifier Expiration Serial [...] time period is included. [facility] Time Signature Source Urine, Urine, 07/12/2022 NPRG [...] Negative Negative mg/dL 07/12/2022 7:04 PM CDT PLANT BREEDER SCIENTIST RG Ketones, QI(U) Negative Negative mg/dL 07/12/2022 7:04 PM C DT NPRG Bilirubin Negative Negative 07/12/2022 7:04 PM CDT NPRG pH 6.0 5.0 - 8.0 07/12/2022 7:04 PM CDT NPRG Specific [place] >=1.030 1.001 - 1.035 07/12/2022 7:04 PM [...] Cells 11-20 /hpf 07/12/2022 7:04 PM CDT PLANT BREEDER SCIENTIST RG Bacteria Present (A) None Seen 07/12/2022 7:04 PM CDT NPRG Specimen Anatomical Collection Method Collection Time Receive d Time (Source) Location / / Volume Laterality Urine (Urine, 07/12/2022 6:46 PM 07/12/20 6:55 Midstream) CDT PM CDT Rylie Mcdowell M.D. LAB URINE ORDERABLES Performing Organization Address City/[facility] Code Phon e Number [place] [address] [place] [address] [place] [address] [address] [facility] Glucose, POCT (06/12/2022 10:50 AM CDT) P athologist Signature Glucose, POCT, 87 70 - 140 06/12/2022 NPRG B mg/dL 10:50 AM CDT Specimen Anatomical Collection Method Collection Time Receive d Time (Source) Location / / Volume Laterality Blood 06/12/2022 10:50 06/12/2022 AM CDT 10:57 AM CDT Generic Rals LAB POCT ORDERABLES-MANUAL Performing Organization Address City/[facility]/ZIP [facility] Phon e Number [place] [address] [address] [place] [address] [address] [address] [place] [address] [address] [facility] Influenza A/B, SARS CoV-2, PCR, Rapid, Varies (04/28/2022 8:48 AM CDT) [facility] Method Time Signature Influenza A, Negative Negative 04/28/2022 NPRG PCR, Rapid, V 9:26 AM CDT Influenza B, Negative Negative 04/28/2022 NPRG PCR, Rapid, V 9:26 AM CDT SARS CoV-2, Undetected Undetected 04/28/2022 NPRG PCR, Rapid, V 9:26 AM CDT Comment: ----ADDITIONAL INFORMATION---- This RT-PCR test was performed using the Carissa SARS-CoV-2 and Influenza A/B Reagent assay from [employer], which has received Emergency Use Authori zation(EUA) by the U.S. Food and Drug Administration . Fact sheets for this Emergency Use Autho rization (EUA) assay can be found at the following link s: For Healthcare Providers: https://www.fda.gov/media/073147/downloa d For Patients: https://www.fda.gov/media/071926/downloa d Infl A/B, SARS CoV-2, PCR, Source Swab, Nasopharynx 04/28/2022 9:02 AM CDT NPRG Specimen Anatomical Collection Method Collection Time Receive d Time (Source) Location / / Volume Laterality Varies 04/28/2022 8:48 AM 9:02 CDT AM CDT Rylie Mcdowell M.D. LAB MICROBIOLOGY - GENERAL O RDERABLES Performing Organization Address City/State/ZIP Code Phon e Number [facility]- [facility] [address] [place], [place] [address] [address] [place] [address] [address] [facility] from Last 3 Months Insurance Payer Benefit Plan / Subscriber ID Effective Phone Address T ype Group Dates EMPLOYERS EMPLOYERS [id number] 2019-Pres [phone] n[address] INSURANCE INSURANCE ent [id number] [place] [address] UCARE UCARE [id number] 2022-Pres [phone] [address] HMO ent [address] [place] [address] Marsha Mataie Workers Comp Self [address] (Home) [place] [address] AdolfoMarsha jhaie Third Democrat Self [address] (Home) [place] [address] Care Teams Teacher Physically Impaired Relationship Specialty Start Date End Date Ben Arce M.D. PCP - General Family Medicine 01/13/[address] [place] [phone]
--- OUTSIDE RECORDS SUMMARY | 2022-07-17 12:49 | XMS_ITS | Encounter Summary ---
:1990 Author Organization [facility] Address [address] [facility] [place] [address] Care Team Providers Name Role Phone Heydi Santana PA-C Primary Care Provider [phone] Encounter Details Date Type Department Care Team Description 09/22/2003 PN Conversion Only [place] [facility] Ayaan Osorio [facility] [address] [facility] [address] [facility]. [facility] [address] [place] [address] [phone] Social History Tobacco Use Types Packs/Day Years Used Date Smoking Tobacco: Never Assessed Sex Assigned at Date Recorded Not on file documented as of this encounter Progress Notes Maryana Osorio - 09/22/2003 12:01 AM CST Progress Notes signed by Maryana Osorio MD at 09/23/03 0756 Author: Maryana Osorio MD Service: (none) Author Type: Physician Filed: 02/09/11 1721 Note Time: 09/22/03 0001 Status: Signed Inspector Materials And Processes: Maryana Osorio MD (Physician) NAME: DILLAN MATA MR: [id number] ACCT: [id number] VISIT: [id number] DICTATING CLINICIAN: MARYANA OSORIO MD JOB: [id number] CLINIC PROGRESS NOTE DATE OF VISIT: 09/22/2003 [...] needed and follow up p.r.n. TT: CT: BOB:[id number] C: 09/23/03 05:53 DOCUMENT: [id number] Patito Craig - 02/19/2002 12:01 AM CDT Progress Notes signed by Patito Jorge APRN, GENERATING PLANT SUPERINTENDENT at 03/11/02 1009 Author: HÉCTOR Martin Service: (none) Author Type: Nurse Practitioner Filed: 02/09/11 0554 Note Time: 02/19/02 0001 Status: Signed Inspector Materials And Processes: HÉCTOR Martin (Nurse Practitioner) IMPRESSION: URI. SUBJECTIVE: [...] symptomatic treatment. Follow up p.r.n. TT: CT: JAGJIT:[id number] C: DOCUMENT: [id number] Maryana Osorio - 12/23/1998 12:01 AM CST Progress Notes signed by Maryana Osorio MD at 01/04/99 1608 Author: Maryana Osorio MD Service: (none) Author Type: Physician Filed: 02/08/11 0924 Note Time: 12/23/98 0001 Status: Signed Inspector Materials And Processes: Maryana Osorio MD (Physician) IMPRESSION: Upper respiratory [...] put on Trimox 250 chewables t.i.d. stg TS JOURNALIST Maryana Osorio - 12/10/1997 12:01 AM CST Progress Notes signed by Maryana Osorio MD at 12/17/972053 Author: Maryana Osorio MD Service: (none) Author Type: Physician Filed: 02/08/116 Note Time: 12/10/97 0001 Status: Signed Inspector Materials And Processes: Maryana Osorio MD (Physician) IMPRESSION: Serous otitis [...] days and will followup here pemi carey TS JOURNALIST Theodore Garcia MD - 03/02/1997 12:01 AM CDT Progress Notes signed by Theodore Garcia MD at 03/18/97 0600 Author: Theodore Garcia MD Service: (none) Author Type: Physician Filed: 02/07/11 3616 Note Time: 03/02/97 0001 Status: Signed Inspector Materials And Processes: Theodore Garcia MD (Physician) IMPRESSION: Right otitis [...] Discussed side effects. Recheck in two weeks. [facility] documented in this encounter Plan of Treatment Not on filedocumented as of this encounter Procedures Procedure Name Priority Date/Time Associated Diagnosis Comme nts XR FOOT RT 3+ VIEWS Routine 09/22/2003 3:12 PM Re sults for this SPORTS JOURNALIST procedure are i n the results section. STREP GROUP A Routine 02/19/2002 4:43 PM Results for this ANTIGEN TEST CDT procedure are i n the results section. BETA STREP FOLLOWUP Routine 02/19/2002 4:43 PM Re sults for this CDT procedure are i n the results section. documented in this encounter Results XR Foot Rt 3+ Views (09/22/2003 3:12 PM SPORTS JOURNALIST) Anatomical Region Laterality Modality Lower Extremity, Foot Other Specimen (Source) Anatomical Location Collection Method / Collectio n Time Received Time / Laterality Volume Narrative 09/22/2003 3:12 PM SPORTS JOURNALIST Findings: BN1 No radiographic evidence of bone [...] Laterality 02/19/2002 4:43 PM CDT Patito Jorge INFORMATION TECHNOLOGY ADMINISTRATOR, GENERATING PLANT SUPERINTENDENT LAB_1 Performing Organization Address City/State/ZIP Code Phon e Number HP CONVERSION Beta Strep Followup (02/19/2002 4:43 PM CDT) P athologist Signature Strep Screen SEE TEXT HP CONVERSION Comment: Patient: DILLAN MATA Rapid Strep Follow up Culture @ ? Collected: ?1642 Source: Throat ?Processed: ?1643 ? 14 Final Report ------ ?[id number] ??0735 No beta hemolytic Strep group A isolated . @ = Rapid F/U Cult Performed at ??[address], [place], [place] ?[address] Specimen (Source) Anatomical Collection Method Collection Time Re ceived Time Location / / Volume Laterality 02/19/2002 4:43 PM CDT Patito Jorge INFORMATION TECHNOLOGY ADMINISTRATOR, GENERATING PLANT SUPERINTENDENT LAB_1 Performing Organization Address City/State/ZIP Code Phon e Number HP CONVERSION documented in this encounter Visit Diagnoses Not on filedocumented in this encounter Care Teams Pockets And Pieces Necktie Operator Relationship Specialty Start Date End Date Heydi Santana PA-C PCP - General 11/14/10 [address] [place], [place] [address] documented as of this encounter
--- OUTSIDE RECORDS SUMMARY | 2022-07-17 12:49 | XMS_ITS | Encounter Summary ---
:1990 Author Organization [facility] Address [address], [place] [address] Care Team Providers Name Role Phone Heydi Santana PA-C Primary Care Provider [phone] Encounter Details Date Type Department Care Team Description 03/26/2009 PN Conversion Only [facility] [address] [place] [address] Social History Tobacco Use Types Packs/Day Years Used Date Smoking Tobacco: Never Assessed Sex Assigned at Date Recorded Not on file documented as of this encounter Plan of Treatment Not on filedocumented as of this encounter Visit Diagnoses Not on filedocumented in this encounter Care Teams Dining Service Supervisor Relationship Specialty Start Date End Date Heydi Santana PA-C PCP - General 11/14/10 [address] [place], [place] [address] documented as of this encounter
--- OUTSIDE RECORDS SUMMARY | 2022-07-17 12:49 | XMS_ITS | Encounter Summary ---
:1990 Author Organization [facility] Address [address] [place] [address] Care Team Providers Name Role Phone Ben Arce M.D. Primary Care Provider Reason for Visit Reason Comments Nausea Vomiting During Auth/Cert Specialty Diagnoses / Procedures Referred By Contact Refer red To Contact Diagnoses . Procedures . Referral ID Status Reason Start Date Expiration Date Visits Requ ested Visits Authorized [id number] 1 1 Encounter Details Date Type Department Care Team Description 04/28/2022 Hospital Encounter [facility] Rylie Mcdowell Encounte r [facility] Praguolive Hennessy Supervision Of [facility], [place] [id number] [facility] Normal Floor [place], [place] Unspecified [address] [place] [address] Trimester (HCC) [place], [place] [phone] [address] (Work) [phone] Social History Tobacco Use Types Packs/Day Years [...] do you attend gnosticist or Never 2021 latter-day services? Do you [...] Date Recorded Female 12/02/2021 5:19 PM PRODUCT RESPONSIBILITY LIAISON documented as of this encounter Last Filed [...] 8.0 04/28/2022 11:36 AM CDT NPRG Specific [place] 1.015 1.001 - 1.035 04/28/2022 11:36 AM [...] Address City/State/ZIP Code Phon e Number [facility]- [facility] [place] [address] [place], [place] [address] [facility] [address] Influenza A/B, SARS CoV-2, PCR, Rapid, Varies (04/28/2022 8:48 AM CDT) [facility] Method Time Signature Influenza A, Negative Negative 04/28/2022 NPRG PCR, Rapid, V 9:26 AM CDT Influenza B, Negative Negative 04/28/2022 NPRG PCR, Rapid, V 9:26 AM CDT SARS CoV-2, Undetected Undetected 04/28/2022 NPRG PCR, Rapid, V 9:26 AM CDT Comment: ----ADDITIONAL INFORMATION---- This RT-PCR test was performed using the Carissa SARS-CoV-2 and Influenza A/B Reagent assay from [employer], which has received Emergency Use Authori zation(EUA) by the U.S. Food and Drug Administration . Fact sheets for this Emergency Use Autho rization (EUA) assay can be found at the following link s: For Healthcare Providers: https://www.fda.gov/media/017866/downloa d For Patients: https://www.fda.gov/media/488121/downloa d Infl A/B, SARS CoV-2, PCR, Source Swab, Nasopharynx 04/28/2022 9:02 AM CDT NPRG Specimen Anatomical Collection Method Collection Time Receive d Time (Source) Location / / Volume Laterality Varies 04/28/2022 8:48 AM 9:02 CDT AM CDT Rylie Mcdowell M.D. LAB MICROBIOLOGY - GENERAL O RDERABLES Performing Organization Address City/State/ZIP Code Phon e Number [facility]- [address] [place] [address] [address] [place] [address] documented in this encounter Visit Diagnoses [...] documented as of this encounter Care Teams Center Customer Service Associate Relationship Specialty Start Date End Date Ben Arce M.D. PCP - General Family Medicine 01/13/[address] [place] [address] documented as of this encounter
--- OUTSIDE RECORDS SUMMARY | 2022-07-17 12:49 | XMS_ITS | Encounter Summary ---
:1990 Author Organization [facility] Address [address] [place] [address] Care Team Providers Name Role Phone Ben rAce M.D. Primary Care Provider Reason for Visit Reason Comments Routine Visit 20weeks Outpatient (Routine) - Authorized Specialty Diagnoses / Procedures Referred By Contact Refer red To Contact Obstetrics and Cheikh Gautam [facility] william Gynecology Minoo Referral ID Status Reason Start Date Expiration Date Visits V isits Requested Authorized [id number] Authorized 12/20/2021 12/20/2022 15 15 Encounter Details Date Type Department Care Team Description 03/27/2022 Routine Department of Cheikh Gautam k (HCC) (Primary Dx); Obstetrics and Minoo Garcia Encounter For Supervision Of Normal Unspecified Trimester (HCC) Gynecology in [place], [place] [address] [place] [address] Social History Tobacco Use Types Packs/Day Years [...] do you attend adventism or Never 2021 buddhism services? Do you [...] Date Recorded Female 12/02/2021 5:19 PM TIME CLOCK REPAIRER documented as of this encounter Last [...] -Gonorhrea/chlamydia urine today -Patient is transferring to [place] because it is closer -Problem list updated [...] Vaccinations: COVID complete but needs booster/Flu declines Registered Land Surveyor: Pap NIL w/ neg HPV 11/2021 Aneuploidy [...] she told me she is transferring to [place] because it is closer. documented in this encounter Plan of Treatment Not on filedocumented as of this encounter Procedures Procedure Name Priority Date/Time Associated Diagnosis Comme nts CHLAMYDIA/GONORRHOE Routine 03/27/2022 10:42 AM High Risk Preg roberta Results for this AE AMPLIFIED RNA CDT ([facility]) procedure a re in the [...] LAB URINE ORDERABLES Performing Organization Address City/[facility]/ZIP Code Phon e Number [place] [address] [address] [place], [place] [address] [place] [facility] [place] [phone] ALT (Alanine Aminotransferase) (03/31/2022 5:31 [...] LAB BLOOD ADD-ON Performing Organization Address City/[facility] Phon e Number [address] [address] [place] [facility] [place] [phone] AST (Aspartate Aminotransferase) (03/31/2022 5:31 PM CDT) [facility] Method Time Signature Aspartate 13 8 - 43 03/31/2022 NPRG Aminotransferase U/L 5:59 PM CDT (AST), P Specimen Anatomical Collection Method Collection Time Receive d Time (Source) Location / / Volume Laterality Blood (Blood, 03/31/2022 5:31 PM 03/31/20 22 5:34 Venous) CDT PM CDT Cheikh Gautam M.D. LAB BLOOD ADD-ON Performing Organization Address City/[facility]/ZIP Code Phon e Number [place] [address] [address] [place], [place] [address] [place] [facility] [place] [phone] (ABNORMAL) Creatinine with Estimated GFR (03/31/2022 5:31 PM CDT) Analysis Performed At [facility] logist Time Signature Creatinine 0.58 (L) 0.59 - 03/31/2022 NPRG 1.04 mg/dL 5:59 PM CDT eGFR-Black/Afri >90 >=60 03/31/2022 NPRG can Libyan mL/min/BSA 5:59 PM CDT Comment: ----ADDITIONAL INFORMATION---- [...] LAB BLOOD ADD-ON Performing Organization Address City/[facility] Phon e Number [facility]- [address] [place] [address] [place] [address] [place] [address] Chlamydia / Gonorrhoeae Amplified RNA (03/27/2022 10:42 AM CDT) [facility] gist Method Time Signature Source Urine, [...] - GENERAL O RDERABLES Performing Organization Address City/[facility]/ZIP Code Phon e Number [facility]- [address] [place] [address] [place] [address] System in [place] [address] [facility] documented in this encounter Visit Diagnoses Diagnosis High Risk (HCC) - Primary Encounter For Supervision Of Normal Preg roberta Unspecified Trimester (HCC) documented in this encounter Additional Health Concerns Assessment Noted Time PHQ-9 Depression Total Score: 4 12/20/2021 10:52 AM CS T documented as of this encounter Care Teams Welfare Analyst Relationship Specialty Start Date End Date Ben Arce M.D. PCP - General Family Medicine 01/13/[address] [place] [address] documented as of this encounter
--- OUTSIDE RECORDS SUMMARY | 2022-07-17 12:49 | XMS_ITS | Encounter Summary ---
:1990 Author Organization [facility] Address [address] [place] [address] Care Team Providers Name Role Phone Unassigned, Provider Primary Care Provider Unavailable Reason for Visit Reason Comments ASTHMA Encounter Details Date Type Department Care Team Description 11/18/2009 Office Visit [facility] Miguelito Anguiano MD URI (Upper Medicine [address] Respiratory [address] Infection) (Primary [place], [place] [address] [place], [place] Dx) [phone] [id number] Social History Tobacco Use Types Packs/Day Years Used Date Smoking Tobacco: Never Alcohol Use Standard Drinks/Week Comments No 0 (1 standard drink = 0.6 oz pure alcoho l) Sex Assigned at Date Recorded Not on file documented as of this encounter Last Filed Vital Signs Vital Sign Reading Time Taken Comments Blood Pressure 120/70 11/18/2009 2:07 PM CONSTRUCTION EQUIPMENT OVERHAULER Pulse 72 11/18/2009 2:07 PM CONSTRUCTION EQUIPMENT OVERHAULER Temperature - - Respiratory Rate 18 11/18/2009 2:07 PM CONSTRUCTION EQUIPMENT OVERHAULER Oxygen Saturation - - Inhaled Oxygen Concentration - - Weight 65.3 kg (144 lb) 11/18/2009 2:07 PM CONSTRUCTION EQUIPMENT OVERHAULER Height - - Body Mass Index - [...] to clinic p.r.n. Joel Anguiano MD 11/18/2009 TRUCTION EQUIPMENT OVERHAULER documented in this encounter Plan of Treatment Not on filedocumented as of this encounter Visit Diagnoses Diagnosis URI (upper respiratory infection) - Prim prosper Acute upper respiratory infections of un specified site documented in this encounter Care Teams Foundation Drill Operator Relationship Specialty Start Date End Date Unassigned, Provider PCP - General 08/17/09 01/16/[address] [place] [address] documented as of this encounter
--- OUTSIDE RECORDS SUMMARY | 2022-07-17 12:49 | XMS_ITS | Encounter Summary ---
:1990 Author Organization [facility] Address [address] [place] [address] Care Team Providers Name Role Phone Ben Arce M.D. Primary Care Provider Reason for Visit Reason Comments Vomiting During Auth/Cert Specialty Diagnoses / Procedures Referred By Contact Refer red To Contact Diagnoses Procedures Referral ID Status Reason Start Date Expiration Date Visits Requ ested Visits Authorized [id number] 1 1 Encounter Details Date Type Department Care Team Description 06/12/2022 [facility], [address] [facility] Second [place], [place] [address] [place] [address] [place], [place] [phone] (Wo rk) [address] [phone] Social History Tobacco Use Types Packs/Day Years [...] do you attend tenriism or Never 2021 druze services? Do you [...] at Date Recorded Female 12/02/2021 5:19 PM REMELT PAN TANK OPERATOR documented as of this encounter Last [...] chewable Chew 81 mg daily. 0 tablet blood pressure test See Admin 0 05/01/2022 kit-large kit Instructions. breast pump device 1 each Cyclic PN - 1 each 0 2 03/01/2023 see admin instructions. calcium carbonate-vitamin Take 1 tablet by 0 D3 625 mg (250 mg mouth daily with calcium)-3.125 mcg (125 breakfast. Unit) per tablet Contour Next EZ Meter misc See Admin 0 2 Instructions. metFORMIN XR Take 500 mg by 0 06/06/2022 (GLUCOPHAGE-XR) 500 mg 24 mouth every hr tablet evening. omeprazole (PriLOSEC) 40 Take by mouth 0 05/01/[address] capsule daily. Take 1 tablet by 90 tablet 3 12/01/2021 vit27,calcium/iron/FA mouth daily. (multivitamin/mineral-pren atal) tablet famotidine (PEPCID) 40 mg Take 1 [...] appointment on Sunday with her PCP in [place]. Education provided on staying hydrated and how [...] [facility]- [address] [place], [place] [address] [place] [facility] NPRG [facility] [place] [address] [facility] [address] [facility] documented in this encounter Visit Diagnoses Not on filedocumented in this encounter Additional Health Concerns Assessment Noted Time PHQ-9 Depression Total Score: 4 12/20/2021 10:52 AM CS T documented as of this encounter Care Teams Street Worker Relationship Specialty Start Date End Date Ben Arce M.D. PCP - General Family Medicine 01/13/[address] [place] [phone] documented as of this encounter
--- OUTSIDE RECORDS SUMMARY | 2022-07-17 12:49 | XMS_ITS | Encounter Summary ---
:1990 Author Organization [facility] Address [address] [place] [address] Care Team Providers Name Role Phone Ben Arce M.D. Primary Care Provider Encounter Details Date Type Department Care Team Description 03/31/2022 Hospital Encounter Department of Cheikh Gautam Laboratory Medicine Minoo Garcia ([facility]) in [place], [place] [address] [place] [phone] Social History Tobacco Use Types Packs/Day Years [...] do you attend voodoo or Never 2021 holiness services? Do you [...] at Date Recorded Female 12/02/2021 5:19 PM URBAN SOCIOLOGIST documented as of this encounter Medications at [...] M.D. LAB URINE ORDERABLES Performing Organization Address City/[facility]/ZIP Code Phon e Number [place] [address] [place], [place] [address] [place] [facility] [place] [phone] ALT (Alanine Aminotransferase) (03/31/2022 5:31 PM CDT) Patholo gist Method Time Signature Alanine 10 7 - 45 03/31/2022 NPRG Aminotransferase U/L 5:59 PM CDT (ALT), P Specimen Anatomical Collection Method Collection Time Receive d Time (Source) Location / / Volume Laterality Blood (Blood, 03/31/2022 5:31 PM 03/31/20 5:34 Venous) CDT PM CDT Cheikh Gautam M.D. LAB BLOOD ADD-ON Performing Organization Address City/[facility] Code Phon e Number [place] [address] [place], [place] [address] [place] [facility] [place] [phone] AST (Aspartate Aminotransferase) (03/31/2022 5:31 PM CDT) [facility] Method Time Signature Aspartate 13 8 - 43 03/31/2022 NPRG Aminotransferase U/L 5:59 PM CDT (AST), P Specimen Anatomical Collection Method Collection Time Receive d Time (Source) Location / / Volume Laterality Blood (Blood, 03/31/2022 5:31 PM 03/31/20 22 5:34 Venous) CDT PM CDT Cheikh Gautam M.D. LAB BLOOD ADD-ON Performing Organization Address City/[facility]/ZIP Code Phon e Number [place] [address] [place], [place] [address] [place] [facility] [place] [phone] (ABNORMAL) Creatinine with Estimated GFR (03/31/2022 5:31 PM CDT) Analysis Performed At Patho logist Time Signature Creatinine 0.58 (L) 0.59 - 03/31/2022 NPRG 1.04 mg/dL 5:59 PM CDT eGFR-Black/Afri >90 >=60 03/31/2022 NPRG can Chadian mL/min/BSA 5:59 PM CDT Comment: ----ADDITIONAL INFORMATION---- [...] [facility]- [address] [place], [place] [address] [place] [facility] NPR[facility] [place] [address] [facility] [address] [place] documented in this encounter Visit Diagnoses Diagnosis High Risk (HCC) documented in this encounter Additional Health Concerns Assessment Noted Time PHQ-9 Depression Total Score: 4 12/20/2021 10:52 AM CS T documented as of this encounter Care Teams Production Supervisor Off Shift Relationship Specialty Start Date End Date Ben Arce M.D. PCP - General Family Medicine 01/13/[address] [place] [address] documented as of this encounter
--- OUTSIDE RECORDS SUMMARY | 2022-07-17 12:49 | XMS_ITS | Encounter Summary ---
:1990 Author Organization [facility] Address [address] [place] [address] Care Team Providers Name Role Phone Heydi Santana Jaquelin RENNER Primary Care Provider [phone] Encounter Details Date Type Department Care Team Description 10/04/2004 PN Conversion Only PRIOR VAN WERT CONVERSIO N Patito Jorge, [address] APRN, HIGH SCHOOL BUSINESS TEACHER [address] [facility] [place] [address] [address] [place], [place] [address] Social History Tobacco Use Types Packs/Day Years Used Date Smoking Tobacco: Never Assessed Sex Assigned at Date Recorded Not on file documented as of this encounter Plan of Treatment Not on filedocumented as of this encounter Procedures Procedure Name Priority Date/Time Associated Diagnosis Comme nts STREP GROUP A Routine 10/04/2004 3:11 PM Results for this ANTIGEN TEST SUPERVISOR SPECIALTY PLANT procedure are i n the results section. BETA STREP FOLLOWUP Routine 10/04/2004 3:11 PM Re sults for this SUPERVISOR SPECIALTY PLANT procedure are i n the results section. documented in this encounter Results Strep Group A Antigen Test (10/04/2004 3:11 PM SUPERVISOR SPECIALTY PLANT) Analysis Performed At Patho logist Time Signature Strep Group A Negative Negative [facility] CONVERSION Antigen Test Comment: Culture to follow. Specimen (Source) Anatomical Collection Method Collection Time Re ceived Time Location / / Volume Laterality 10/04/2004 3:11 PM SUPERVISOR SPECIALTY PLANT Patito Jorge APRN, HIGH SCHOOL BUSINESS TEACHER LAB_1 Performing Organization Address City/State/ZIP Code Phon e Number [facility] CONVERSION Beta Strep Followup (10/04/2004 3:11 PM SUPERVISOR SPECIALTY PLANT) P athologist Signature Strep Screen SEE TEXT HP CONVERSION Comment: Patient: DILLAN MATA Rapid Strep Follow up Culture @ ? Collected: ??[id number] ??[id number] Source: Throat ?Processed: ??[id number] ??[id number] Final Report ------ ?[id number] ??[id number] No beta hemolytic Strep group A isolated . @ = Rapid F/U Cult Performed at ??[address] [place], [place] ?[address] Specimen (Source) Anatomical Collection Method Collection Time Re ceived Time Location / / Volume Laterality 10/04/2004 3:11 PM SUPERVISOR SPECIALTY PLANT Patito Jorge RECREATION AIDE, HIGH SCHOOL BUSINESS TEACHER LAB_1 Performing Organization Address City/State/ZIP Code Phon e Number [facility] CONVERSION documented in this encounter Visit Diagnoses Not on filedocumented in this encounter Care Teams Shoe Sewing Machine Operator And Tender Relationship Specialty Start Date End Date Heydi Santana PA-C PCP - General 11/14/10 [address] [place] [address] documented as of this encounter
--- OUTSIDE RECORDS SUMMARY | 2022-07-17 12:49 | XMS_ITS | Encounter Summary ---
:1990 Author [facility] Address [address], [place] [address] Care Team Providers Name Role Phone Heydi Santana PA-C Primary Care Provider [phone] Encounter Details Date Type Department Care Team Description 11/13/2003 PN Conversion Only CUBA CONVERSION [address] [facility] [place] [address] Social History Tobacco Use Types Packs/Day Years Used Date Smoking Tobacco: Never Assessed Sex Assigned at Date Recorded Not on file documented as of this encounter Plan of Treatment Not on filedocumented as of this encounter Visit Diagnoses Not on filedocumented in this encounter Care Teams Car Wiper Relationship Specialty Start Date End Date Heydi Santana PA-C PCP - General 11/14/10 [address] [place] [place], [place] [address] documented as of this encounter
--- OUTSIDE RECORDS SUMMARY | 2022-07-17 12:49 | XMS_ITS | Encounter Summary ---
:1990 Author Organization [facility] Address [address] [place] [address] Care Team Providers Name Role Phone Heydi Santana Jaquelin RENNER Primary Care Provider [phone] Encounter Details Date Type Department Care Team Description 03/26/2009 PN Conversion Only DRY PRONG CONVERSI ON Arturo Aguirre MD [address] [place] [address] [place] [address] (Wo rk) Social History Tobacco Use [...] 3:15 PM CDT) [facility] Time Signature Strep Group A Negative Negative [...] Rapid Strep Follow up Culture ? Collected: ??[id number] ??[id number] Source: Throat ?Processed: ??[id number] ??[id number] ? 1B Final Report ------ ?[id number] ??[id number] No beta hemolytic Strep group A isolated . Specimen (Source) Anatomical Collection Method Collection Time Re ceived Time Location / / Volume Laterality 03/26/2009 3:15 PM CDT Arturo Aguirre MD LAB_1 Performing Organization Address City/State/ZIP Code Phon e Number [facility] CONVERSION documented in this encounter Visit Diagnoses Not on filedocumented in this encounter Care Teams Channeler Outsole Relationship Specialty Start Date End Date Heydi Santana PA-C PCP - General 11/14/10 [address] [place], [place] [address] documented as of this encounter
--- OUTSIDE RECORDS SUMMARY | 2022-07-17 12:49 | XMS_ITS | Encounter Summary ---
:1990 Author Organization [facility] Address [address] [place] [address] Care Team Providers Name Role Phone Ben Arce M.D. Primary Care Provider Reason for Visit Reason Comments Routine Visit Patient seen in L&D yesterda y for decreased movement and spotting Outpatient (Routine) - Authorized Specialty Diagnoses / Procedures Referred By Contact Refer red To Contact Obstetrics and Cheikh Gautam [facility] Gynecology M.DMaribell Referral ID Status Reason Start Date Expiration Date Visits V isits Requested Authorized [id number] Authorized 12/20/2021 12/20/2022 15 15 Encounter Details Date Type Department Care Team Description 04/18/2022 Routine Department of Rylie Mcdowell, 23 Weeks Gestation Obstetrics and M.D. ([facility]) Gynecology in [address] (Primary Dx) [place] [address] [address] [facility] [place] [address] [place], [place] [phone] [address] (Work) [phone] Social History Tobacco Use Types Packs/Day Years [...] do you attend christian or Never 2021 mormonism services? Do you [...] at Date Recorded Female 12/02/2021 5:19 PM FEEDER/FOLDER documented as of this encounter Last Filed [...] documented as of this encounter Care Teams Grocery Sacker Relationship Specialty Start Date End Date Ben Arce M.D. PCP - General Family Medicine 01/13/[address] [facility] [address] documented as of this encounter
--- OUTSIDE RECORDS SUMMARY | 2022-07-17 12:50 | XMS_ITS | Encounter Summary ---
:1990 Author Organization [facility] Address [address] [place] [address] Care Team Providers Name Role Phone Ben Arce M.D. Primary Care Provider Reason for Visit Reason Comments Sinusitis Sinus pressure / sinus drain age/ sinus congestion x 6 weeks Encounter Details Date Type Department Care Team Description 11/08/2021 [facility] [place], in [facility], C.N .[facility] [address] [facility] [address] [place] [phone] Social History Tobacco Use Types Packs/Day Years [...] do you attend confucianist or Never 2021 sikh services? Do you [...] at Date Recorded Female 12/02/2021 5:19 PM HELP DESK ADMINISTRATOR documented as of this encounter Last Filed Vital Signs Vital Sign Reading Time Taken Comments Blood Pressure 126/78 11/08/2021 12:40 PM HELP DESK ADMINISTRATOR Pulse 78 11/08/2021 12:40 PM HELP DESK ADMINISTRATOR Temperature 37 ??C (98.6 ??F) 11/08/2021 12:40 PM HELP DESK ADMINISTRATOR Respiratory Rate 16 11/08/2021 12:40 PM HELP DESK ADMINISTRATOR Oxygen Saturation 98% 11/08/2021 12:40 PM HELP DESK ADMINISTRATOR Inhaled Oxygen Concentration - - Weight 72.1 kg (158 lb 14.4 oz) 11/08/2021 12:40 PM HELP DESK ADMINISTRATOR Height 155 cm (5' 1.02) 11/08/2021 12:40 PM HELP DESK ADMINISTRATOR Body Mass Index 30 11/08/2021 12:40 PM HELP DESK ADMINISTRATOR documented in this encounter Patient Instructions Patient InstructionsArely Ferrell APRN, C.N.P. - 11/08/2021 12:30 PM HELP DESK ADMINISTRATOR Steam, frequent showers to break up mucus in back of throat. Follow up if not gradually improving over the next 7-10 days or sooner if symptoms would worsen. DESK ADMINISTRATOR AttachmentsThe following attachments cannot be sent through Care Everywhere. Sinusitis (Rhinosinusitis) (Japanese)documented in this encounter Progress Notes Arely Ferrell [...] discussed and reviewed in AVS. Discharged from [facility] in stable condition. I personally spent 20 minutes in total care of the patient today. DESK ADMINISTRATOR documented in this encounter Plan of Treatment Not on filedocumented as of this encounter Visit Diagnoses Diagnosis Sinusitis - Primary documented in this encounter Care Teams Salvager Relationship Specialty Start Date End Date Ben Arce M.D. PCP - General Family Medicine 01/13/[address] [place] [address] documented as of this encounter
--- OUTSIDE RECORDS SUMMARY | 2022-07-17 12:50 | XMS_ITS | Encounter Summary ---
:1990 Author Organization [facility] Address [address] [place] [address] Care Team Providers Name Role Phone Ben Arce M.D. Primary Care Provider Reason for Visit Reason Comments Other right hand injury---yesterda y Encounter Details Date Type Department Care Team Description 05/18/2021 Office Visit Department of Alexander Estrella Pain Hand Right (Primary Dx); Medicine in [facility] [place] Contusion Hand Initial Right [place], [place] [address] [place] [phone] Social History Tobacco Use Types Packs/Day Years [...] do you attend baptist or Never 2021 mormonism services? Do you [...] Date Recorded Female 12/02/2021 5:19 PM BRAND MARKETING COORDINATOR documented as of this encounter Last [...] She had pain limiting her making a jackson with the thumb and index finger. No [...] Right documented in this encounter Care Teams Engineering Administrator Relationship Specialty Start Date End Date Ben Arce M.D. PCP - General Family Medicine 01/13/[address] [place] [address] documented as of this encounter
--- OUTSIDE RECORDS SUMMARY | 2022-07-17 12:50 | XMS_ITS | Encounter Summary ---
:1990 Author Organization [facility] Address [address] [place] [address] Care Team Providers Name Role Phone Ben Arce M.D. Primary Care Provider Reason for Visit Reason Comments Med Refill Encounter Details Date Type Department Care Team Description 05/23/2021 Refill Department of Family Medicine Ben Maynard M.D. Med Refill in [facility] [address] [place] [phone] [phone] (Wo rk) Social History Tobacco Use Types [...] do you attend anabaptism or Never 2021 adventism services? Do you [...] at Date Recorded Female 12/02/2021 5:19 PM DIE KEEPER documented as of this encounter Miscellaneous Notes Telephone Encounter - Rylie Le RMaribellMKalpesh - 05/23/2021 1:08 PM CDT Medication Name: cetirizine Last Office Visit: 05/18/21 Future Office Visit: none Last Blood Pressure: (62549) 05/18/21 Last Set of Labs: 01/13/21 Patient is restricted to Dr. Ritter for all refills documented in this encounter Plan of Treatment Not on filedocumented as of this encounter Visit Diagnoses Diagnosis Rhinitis Allergic documented in this encounter Care Teams Replenishment Analyst Relationship Specialty Start Date End Date Ben Arce M.D. PCP - General Family Medicine 01/13/[address] [place] [address] documented as of this encounter
--- OUTSIDE RECORDS SUMMARY | 2022-07-17 12:50 | XMS_ITS | Encounter Summary ---
:1990 Author Organization [facility] Address [address] [place] [address] Care Team Providers Name Role Phone Ben Arce M.D. Primary Care Provider Reason for Visit Reason Comments Nurse Visit NOB ED/INTAKE APPT Encounter Details Date Type Department Care Team Description 12/08/2021 Virtual Visit Department of Terrence Swenson M.D. [address] [address] Encounter For Supervision Of Other Stella l Unspecified Trimester (Primary Dx); Obstetrics and Autumn Patel R.N. [address] [address] Examination Test With Positive Result Gynecology in [place], [place] [address] [address] Social History Tobacco Use Types [...] do you attend buddhism or Never 2021 sabianism services? Do you [...] Date Recorded Female 12/02/2021 5:19 PM MUSIC PROMOTER documented as of this encounter Patient Instructions [...] Provided Today: Beginnings: , , and [facility] brochure-[facility] C PROMOTER documented in this encounter Progress Notes Autumn Patel R.N. - 12/08/2021 1:30 PM CST Consult conducted via real-time audio/video technology by Autumn Patel R.N. in [facility] to the patient in Patient's Home. episode opened-please see history for details. Conceived with Nexplanon in place-this was removed after positive Beta Hcg. 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 Denies concerns. Encouraged to call with questions or concerns. C PROMOTER documented in this encounter Plan of Treatment Not on filedocumented as of this encounter Results Hepatitis C Virus Antibody Screen (12/20/2021 11:34 AM MUSIC PROMOTER) athologist Signature HCV Ab Scrn Negative Negative 12/21/2021 [facility] , S 8:10 AM MUSIC PROMOTER Comment: Kjatgh-ht-ppxnmk ratio is <1.00 . Specimen Anatomical Collection Method Collection Time Receive d Time (Source) Location / / Volume Laterality Blood (Blood, 12/20/2021 11:34 12/21/2021 6:40 Venous) AM MUSIC PROMOTER AM MUSIC PROMOTER Cheikh Gautam M.D. LAB MICROBIOLOGY - BLOOD ORD ERABLES Performing Organization Address City/State/ZIP Code Phon e Number [facility] [address] [place] [phone] [facility] [place] [address] Laboratory Medicine and Pathology [address] [place] Syphilis Total Ab w/ Reflex, Serum (12/20/2021 11:34 AM MUSIC PROMOTER) [facility] Method Time Signature Syphilis Nonreactive Nonreactive 12/21/2021 [facility] Total Ab w/ 11:40 AM MUSIC PROMOTER Reflex Comment: No serologic evidence of infection with T. pallidum (syphilis). ??Repeat testing may be cons idered in patients with suspected acute or primary syphilis in 2-4 weeks. For additional information on interpreta tion of the syphilis reverse algorithm and resul ts, see: [email or web address] Specimen Anatomical Collection Method Collection Time Receive d Time (Source) Location / / Volume Laterality Blood (Blood, 12/20/2021 11:34 12/20/2021 6:27 Venous) AM MUSIC PROMOTER PM MUSIC PROMOTER Cheikh Gautam M.D. LAB BLOOD ADD-ON Performing Organization Address City/[facility] Phon e Number [facility]- [address] [place] [phone] [place] [address] System [address] Rubella Antibodies, IgG (12/20/2021 11:34 AM MUSIC PROMOTER) athologist Signature Rubella Ab, Positive 12/21/2021 [facility] IgG, S 11:40 AM MUSIC PROMOTER Comment: Results suggest response to immunization or prior exposure to the virus. ----REFERENCE VALUE---- Vaccinated: Positive (>=1.0 AI) Unvaccinated: Negative (<=0.7 AI) Rubella IgG Antibody Index 2.6 12/21/2021 11 :40 AM MUSIC PROMOTER [facility] Specimen Anatomical Collection Method Collection Time Receive d Time (Source) Location / / Volume Laterality Blood (Blood, 12/20/2021 11:34 12/20/2021 6:27 Venous) AM MUSIC PROMOTER PM MUSIC PROMOTER Cheikh Gautam M.D. LAB MICROBIOLOGY - BLOOD ORD ERABLES Performing Organization Address City/State/ZIP Code Phon e Number [facility]- [address] [place] [phone] [place] [address] HIV-1/-2 Ag and Ab Scrn, Plasma (12/20/2021 11:34 AM MUSIC PROMOTER) P athologist Signature HIV Ag/Ab Negative Negative 12/21/2021 [facility] Scrn, 11:40 AM MUSIC PROMOTER P Comment: Negative result does not rule out HIV in fection. If exposure to HIV infection occurred <14 d ays ago, contact the laboratory to request additi on of HIV-1 RNA detection / quantification test. HIV-1 p24 Ag Scrn, P Negative Negative 12/21/2021 11:40 AM MUSIC PROMOTER CA Comment: Negative result does not rule out HIV in fection. If exposure to HIV infection occurred <14 d ays ago, contact the laboratory to request additi on of HIV-1 RNA detection / quantification test. HIV-1 Ab Scrn, P Negative Negative 12/21/2021 11: 40 AM MUSIC PROMOTER CA Comment: Negative result does not rule out HIV in fection. If exposure to HIV infection occurred <14 d ays ago, contact the laboratory to request additi on of HIV-1 RNA detection / quantification test. HIV-2 Ab Scrn, P Negative Negative 12/21/2021 11: 40 AM MUSIC PROMOTER [facility] Comment: Negative result does not rule out HIV in fection. If exposure to HIV infection occurred <14 d ays ago, contact the laboratory to request additi on of HIV-1 RNA detection / quantification test. Specimen Anatomical Collection Method Collection Time Receive d Time (Source) Location / / Volume Laterality Blood (Blood, 12/20/2021 11:34 12/20/2021 6:27 Venous) AM MUSIC PROMOTER PM MUSIC PROMOTER Cheikh Gautam M.D. LAB MICROBIOLOGY - BLOOD ORD ERAKAMALJIT Performing Organization Address City/State/ZIP Code Phon e Number [facility]- [address] [place] [address], [place] [phone] [place] [address] System in [place] HBs Antigen , Serum (12/20/2021 11:34 AM MUSIC PROMOTER) [facility] Method Time Signature HBs Antigen Non reactive Non reactive 12/20/2021 [facility] , S 4:50 PM MUSIC PROMOTER Specimen Anatomical Collection Method Collection Time Receive d Time (Source) Location / / Volume Laterality Blood (Blood, 12/20/2021 11:34 12/20/2021 3:49 Venous) AM MUSIC PROMOTER PM MUSIC PROMOTER Cheikh Gautam M.D. LAB MICROBIOLOGY - BLOOD ORD ERAKAMALJIT Performing Organization Address City/State/ZIP Code Phon e Number [facility]- [address] [place] [address] [facility] [place], [place] [id number] [place] [address] (ABNORMAL) CBC without Differential (12/20/2021 11:34 AM MUSIC PROMOTER) [facility] Method Time Signature Hemoglobin 14.1 11.6 - 12/20/2021 [facility] 15.0 g/dL 11:44 AM MUSIC PROMOTER Hematocrit 41.0 35.5 - 12/20/2021 [facility] 44.9 % 11:44 AM MUSIC PROMOTER Erythrocytes 4.91 3.92 - 12/20/2021 [facility] 5.13 11:44 AM MUSIC PROMOTER x10(12)/L MCV 83.5 78.2 - 12/20/2021 [facility] 97.9 fL 11:44 AM MUSIC PROMOTER RBC Distrib Width 11.7 (L) 12.2 - 12/20/2021 [facility] 16.1 % 11:44 AM MUSIC PROMOTER Platelet Count 360 157 - 371 12/20/2021 [facility] x10(9)/L 11:44 AM MUSIC PROMOTER Leukocytes 11.1 (H) 3.4 - 9.6 12/20/2021 [facility] x10(9)/L 11:44 AM MUSIC PROMOTER Specimen Anatomical Collection Method Collection Time Receive d Time (Source) Location / / Volume Laterality Blood (Blood, 12/20/2021 11:34 12/20/2021 Venous) AM MUSIC PROMOTER 11:40 AM MUSIC PROMOTER Cheikh Gautam M.D. LAB BLOOD ADD-ON Performing Organization Address City/State/ZIP Code Phon e Number [facility]- [address] [place] [address] [place] [address] System in [place] [address] Antibody Screen, RBC (with reflex Antibody ID) (12/20/2021 11:34 AM MUSIC PROMOTER) P athologist Signature Antibody Screen NEG 12/20/2021 [facility] 5:16 PM MUSIC PROMOTER Specimen Anatomical Collection Method Collection Time Receive d Time (Source) Location / / Volume Laterality Blood (Blood, 12/20/2021 11:34 12/20/2021 3:49 Venous) AM MUSIC PROMOTER PM MUSIC PROMOTER Cheikh Gautam M.D. LAB BLOOD BANK TEST ORDERABL ES Performing Organization Address City/[facility]/ZIP Code Phon e Number [facility]- [address] [place] [address] [facility] [place] [facility] - [address] ABORh, RBC (12/20/2021 11:34 AM MUSIC PROMOTER) P athologist Signature ABO Group O 12/20/2021 5:16 [place] PM MUSIC PROMOTER Rh Type POS 12/20/2021 5:16 [place] PM MUSIC PROMOTER Specimen Anatomical Collection Method Collection Time Receive d Time (Source) Location / / Volume Laterality Blood (Blood, 12/20/2021 11:34 12/20/2021 3:51 Venous) AM MUSIC PROMOTER PM MUSIC PROMOTER Cheikh Gautam M.D. LAB BLOOD BANK TEST ORDERABL ES Performing Organization Address City/State/ZIP Code Phon e Number [facility]- [address] [place] [address] [facility] - [address] Bacterial Culture, Aerobic + Susc, Urine (12/20/2021 11:26 AM MUSIC PROMOTER) [facility] Method Time Signature Urine Culture No growth 12/21/2021 [facility] after 1 day 8:40 AM MUSIC PROMOTER of incubation. Specimen Anatomical Collection Method Collection Time Receive d Time (Source) Location / / Volume Laterality Urine (Urine, 12/20/2021 11:26 12/20/2021 2:19 Midstream) AM MUSIC PROMOTER PM MUSIC PROMOTER Comment: Specimen Source Site: Urine Cheikh Gautam M.D. LAB MICROBIOLOGY - GENERAL O RDERABLES Performing Organization Address City/State/ZIP Code Phon e Number [facility]- [address] [place] [id number] [place] [address] [place] [address] System [address] Urinalysis with Microscopic if Indicated (12/20/2021 11:26 AM MUSIC PROMOTER) P athologist Signature Source Urine, 12/20/2021 [place] Urine, Clean 12:12 PM MUSIC PROMOTER Catch Clarity Clear Clear 12/20/2021 [place] 12:12 PM MUSIC PROMOTER Color Yellow 12/20/2021 [facility] 12:12 PM MUSIC PROMOTER Comment: ----REFERENCE VALUE---- Colorless Yellow Ronda Blood Negative Negative 12/20/2021 12:12 PM MUSIC PROMOTER [facility] Nitrite Negative Negative 12/20/2021 12:12 PM MUSIC PROMOTER [facility] Leukocyte Esterase Negative Negative 12/20/2021 12:[address] [facility] Protein Negative mg/dL 12/20/2021 12:12 PM MUSIC PROMOTER [facility] Comment: ----REFERENCE VALUE---- Negative Trace Glucose Negative Negative mg/dL 12/20/2021 12:12 PM MUSIC PROMOTER O FRANSICO Ketone Negative Negative mg/dL 12/20/2021 12:12 PM MUSIC PROMOTER O FRANSICO Bilirubin Negative Negative 12/20/2021 12:12 PM MUSIC PROMOTER [facility] pH 6.0 5.0 - 8.0 12/20/2021 12:12 PM MUSIC PROMOTER [facility] Specific Beeler 1.005 1.001 - 1.035 12/20/2021 12:12 PM MUSIC PROMOTER [facility] Urobilinogen 0.2 0.2 - 1.0 mg/dL 12/20/2021 12:[address] [facility] Specimen Anatomical Collection Method Collection Time Receive d Time (Source) Location / / Volume Laterality Urine (Urine, 12/20/2021 11:26 12/20/2021 Clean Catch) AM MUSIC PROMOTER 12:06 PM MUSIC PROMOTER Cheikh Gautam M.D. LAB URINE ORDERABLES Performing Organization Address City/State/ZIP Code Phon e Number [facility]- [address] [place] [address] [place] [address] System in [place] [address] documented in this encounter Visit Diagnoses Diagnosis Encounter For Supervision Of Other Stella l Unspecified Trimester (HCC) - Primary Examination Test With Positive Result (HCC) documented in this encounter Care Teams Manager Of Hospital Relationship Specialty Start Date End Date Ben Arce M.D. PCP - General Family Medicine 01/13/[address] [place] [address] documented as of this encounter
--- OUTSIDE RECORDS SUMMARY | 2022-07-17 12:50 | XMS_ITS | Encounter Summary ---
:1990 Author Organization [facility] Address [address] [place] [address] Care Team Providers Name Role Phone Ben Arce M.D. Primary Care Provider Reason for Visit Reason Comments Routine Visit 16 2/7 wk ob check pelvic/lo wer back pain 7/10 pain scale, needs referral to chiropract or Outpatient (Routine) - Authorized Specialty Diagnoses / Procedures Referred By Contact Refer red To Contact Obstetrics and Cheikh Gautam [facility] william Gynecology M.DMaribell Referral ID Status Reason Start Date Expiration Date Visits V isits Requested Authorized [id number] Authorized 12/20/2021 12/20/2022 15 15 Encounter Details Date Type Department Care Team Description 03/01/2022 Routine Department of Terrence Swenson Pregnan cy Examination Test With Positive Result (HCC) (Primary Dx); Obstetrics and M.D. Encounter For Supervision Of Normal Preg roberta Unspecified Trimester (HCC) Gynecology in [address] [place], [place] [address] [place], [place] [phone] [address] (Work) [phone] Social History Tobacco Use Types Packs/Day Years [...] 11/20/2021 organizations such as nondenominational groups, unions, [employer]oseidon [employer] or athletic groups, or school groups? [...] at Date Recorded Female 12/02/2021 5:19 PM CAREER TECHNICAL EDUCATION INSTRUCTOR documented as of this encounter Last [...] documented as of this encounter Care Teams Lead Section Supervisor Relationship Specialty Start Date End Date Ben Arce M.D. PCP - General Family Medicine 01/13/[address] [place] [address] documented as of this encounter
--- OUTSIDE RECORDS SUMMARY | 2022-07-17 12:50 | XMS_ITS | Encounter Summary ---
:1990 Author Organization [facility] Address [address] [place] [address] Care Team Providers Name Role Phone Ben Arce M.D. Primary Care Provider Reason for Visit Reason Comments Communication New script Encounter Details Date Type Department Care Team Description 10/06/2021 Clinical Communication Department of Ben Arce Comm unication (New Family Medicine in M.DMaribell script) [place] [address] [facility] [address] [facility] [address] [phone] Social History Tobacco Use Types Packs/Day Years [...] do you attend bahai or Never 2021 anglican services? Do you [...] at Date Recorded Female 12/02/2021 5:19 PM PLAYGROUND EQUIPMENT ERECTOR documented as of this encounter Miscellaneous Notes Telephone Encounter - Babita Ramachandran R.N. - 10/06/2021 3:58 PM PLAYGROUND EQUIPMENT ERECTOR Portal message sent to patient that if she is on restricted plan she needs to contact her insurance for an exception. GROUND EQUIPMENT ERECTOR Telephone Encounter - Alana Perkins L.P.N. - 10/06/2021 3:02 PM PLAYGROUND EQUIPMENT ERECTOR Spoke to pt and informed her that we would need to know which medication for eye drops was ordered so that Dr Arce could send it in. Pt states she has no idea what it is. Informed pt to find out which medication it is and call us back with that info. GROUND EQUIPMENT ERECTOR Telephone Encounter - Migdalia Pompa - 10/06/2021 [...] Please call patient with plan. Thank you. GROUND EQUIPMENT ERECTOR documented in this encounter Plan of Treatment Not on filedocumented as of this encounter Visit Diagnoses Not on filedocumented in this encounter Care Teams Switch Operator Relationship Specialty Start Date End Date Ben Arce M.D. PCP - General Family Medicine 01/13/[address] [place] [phone] documented as of this encounter
--- OUTSIDE RECORDS SUMMARY | 2022-07-17 12:50 | XMS_ITS | Encounter Summary ---
:1990 Author Organization [facility] Address [address] [place] [address] Care Team Providers Name Role Phone Ben Arce M.D. Primary Care Provider Reason for Visit Reason Comments Hand Injury Encounter Details Date Type Department Care Team Description 02/11/2022 Emergency [facility] Sigrid Forbes ontusion Hand Initial Department DMinoo Right (Primary Dx) [address] [place] [address] [phone] (Wo rk) Social History Tobacco Use Types [...] do you attend sabianism or Never 2021 church services? Do you [...] Date Recorded Female 12/02/2021 5:19 PM FISH TENDER documented as of this encounter Last [...] clinic by calling the appointment center at [phone]. Thank you for choosing [facility] for your care. It was a pleasure taking care of you today in our Emergency Department. AttachmentsThe following attachments cannot be sent through Care Everywhere.Hand Contusion Fsjz-eh-Vsig (Divehi)documented in this encounter Medications at Time of [...] Forbes M.D. - 02/11/2022 9:44 PM CDT [facility] EMERGENCY DEPARTMENT ENCOUNTER Patient Name: Lulu Mata PCP: Ben Arce M.D. SUBJECTIVE CHIEF COMPLAINT/REASON FOR VISIT Hand Injury HISTORY OF PRESENT ILLNESS Lulu Mata is a 31 y.o. female presenting with right hand pain. She was at the [facility] today when her hand was shut [...] documented as of this encounter Care Teams Calciminer Relationship Specialty Start Date End Date Ben Arce M.D. PCP - General Family Medicine 01/13/[address] [facility] [place] [phone] documented as of this encounter
--- OUTSIDE RECORDS SUMMARY | 2022-07-17 12:50 | XMS_ITS | Encounter Summary ---
:1990 Author Organization [facility] Address [address] [place] [address] Care Team Providers Name Role Phone Ben Arce M.D. Primary Care Provider Reason for Visit Reason Comments Routine Visit 12+2weeks Sinusitis Concerns Outpatient (Routine) - Authorized Specialty Diagnoses / Procedures Referred By Contact Refer red To Contact Obstetrics and Cheikh Gautam [facility] william Gynecology MGonzalez Referral ID Status Reason Start Date Expiration Date Visits V isits Requested Authorized [id number] Authorized 12/20/2021 12/20/2022 15 15 Encounter Details Date Type Department Care Team Description 02/01/2022 Routine Department of Terrence Swenson [facility] Obstetrics and MGonzalez (Primary Dx) Gynecology in [address] [address] [place], [place] [phone] [address] (Work) [phone] Social History Tobacco Use Types Packs/Day Years [...] do you attend baptist or Never 2021 cheondoism services? Do you [...] at Date Recorded Female 12/02/2021 5:19 PM MAIL PROCESSING MACHINE OPERATOR documented as of this encounter [...] Body Mass Index 29.09 12/09/2021 8:31 AM MAIL PROCESSING MACHINE OPERATOR documented in this encounter Progress [...] ASSESSMENT / PLAN #1 High Risk - [id number] Plus-Sent Out Lab; Future; Expected date: 02/01/2022 [...] has been sent to her pharmacy in [place]. Most of the early symptoms of including [...] on filedocumented as of this encounter Results [id number] Plus-Sent Out Lab (02/01/2022 9:52 AM CDT) [...] Organization Address City/State/ZIP Code Phon e Number [facility] [address] [place] [address] [employer] [place] [address] [address] documented in this encounter Visit Diagnoses Diagnosis High Risk (HCC) - Primary documented in this encounter Additional Health Concerns Assessment Noted Time PHQ-9 Depression Total Score: 4 12/20/2021 10:52 AM CS T documented as of this encounter Care Teams Paper Rewinder Operator Relationship Specialty Start Date End Date Ben Arce M.D. PCP - General Family Medicine 01/13/[address] [place] [address] documented as of this encounter
--- OUTSIDE RECORDS SUMMARY | 2022-07-17 12:50 | XMS_ITS | Encounter Summary ---
:1990 Author Organization [facility] Address [address] [place] [address] Care Team Providers Name Role Phone Ben Arce M.D. Primary Care Provider Encounter Details Date Type Department Care Team Description 12/20/2021 Orders Only Department of Obstetrics and Gau Terrence zamarripa M.D. Gynecology in [address] [address] [place] [address] [phone] Social History Tobacco Use Types Packs/Day Years [...] do you attend alevism or Never 2021 anabaptist services? Do you [...] at Date Recorded Female 12/02/2021 5:19 PM CLOUD SYSTEMS ADMINISTRATOR documented as of this encounter Plan of Treatment Not on filedocumented as of this encounter Visit Diagnoses Not on filedocumented in this encounter Additional Health Concerns Assessment Noted Time PHQ-9 Depression Total Score: 4 12/20/2021 10:52 AM CS T documented as of this encounter Care Teams Animal Ecologist Relationship Specialty Start Date End Date Ben Arce M.D. PCP - General Family Medicine 01/13/[address] [place] [phone] documented as of this encounter
--- OUTSIDE RECORDS SUMMARY | 2022-07-17 12:50 | XMS_ITS | Encounter Summary ---
:1990 Author Organization [facility] Address [address] [place] [address] Care Team Providers Name Role Phone Ben Arce M.D. Primary Care Provider Encounter Details Date Type Department Care Team Description 02/28/2022 Orders Only Department of Obstetrics and Gau Terrence zamarripa M.D. Gynecology in [address] [address] [place] [address] [phone] Social History Tobacco Use Types Packs/Day Years [...] do you attend mosque or Never 2021 jain services? Do you [...] at Date Recorded Female 12/02/2021 5:19 PM PREPARATION SUPERVISOR FREEZING documented as of this encounter Plan of Treatment Not on filedocumented as of this encounter Visit Diagnoses Not on filedocumented in this encounter Additional Health Concerns Assessment Noted Time PHQ-9 Depression Total Score: 4 12/20/2021 10:52 AM CS T documented as of this encounter Care Teams Tubing Machine Operator Relationship Specialty Start Date End Date Ben Arce M.D. PCP - General Family Medicine 01/13/[address] [place] [phone] documented as of this encounter
--- OUTSIDE RECORDS SUMMARY | 2022-07-17 12:50 | XMS_ITS | Encounter Summary ---
:1990 Author Organization [facility] Address [address] [place] [address] Care Team Providers Name Role Phone Ben Arce M.D. Primary Care Provider Encounter Details Date Type Department Care Team Description 02/01/2022 Hospital Encounter Department of Terrence Swenson High Risk Laboratory Medicine MGonzalez in [address] [address] [place], [place] [phone] (Work) [phone] Social History Tobacco Use Types Packs/Day Years [...] do you attend advent or Never 2021 temple services? Do you [...] at Date Recorded Female 12/02/2021 5:19 PM CHECK AND TRANSFER BEADER documented as of this encounter Medications at [...] Name Priority Date/Time Associated Diagnosis Comme nts [id number] Routine 02/01/2022 9:52 AM High Risk Re sults for this PLUS-SENT OUT LAB CDT (HCC) procedure are in the results section. documented in this encounter Results [id number] Plus-Sent Out Lab (02/01/2022 9:52 AM CDT) [...] Organization Address City/State/ZIP Code Phon e Number [facility] [address] [place] [address] [facility] [place] [place] [address] documented in this encounter Visit Diagnoses Diagnosis High Risk (HCC) documented in this encounter Additional Health Concerns Assessment Noted Time PHQ-9 Depression Total Score: 4 12/20/2021 10:52 AM CS T documented as of this encounter Care Teams Agricultural Chemist Relationship Specialty Start Date End Date Ben Arce M.D. PCP - General Family Medicine 01/13/[address] [facility] [place] [address] documented as of this encounter
--- OUTSIDE RECORDS SUMMARY | 2022-07-17 12:50 | XMS_ITS | Encounter Summary ---
:1990 Author Organization [facility] Address [address] [place] [address] Care Team Providers Name Role Phone Ben Arce M.D. Primary Care Provider Reason for Visit Reason Comments Vomiting Pt presents with nausea and vomiting that began last evening at 1700. Has persisted all night. Pt is 6 weeks . Encounter Details Date Type Department Care Team Description 12/09/2021 Emergency [place] [facility] Valerie Malone, Nause a And Vomiting (Primary Dx); Department M.D. Less Than 8 Weeks Gestation [address] [place] [phone] Social History Tobacco Use Types Packs/Day Years [...] do you attend episcopal or Never 2021 rastafarian services? Do you [...] at Date Recorded Female 12/02/2021 5:19 PM TALENT REP documented as of this encounter Last Filed Vital Signs Vital Sign Reading Time Taken Comments Blood Pressure 126/87 12/09/2021 9:45 AM TALENT REP Pulse 95 12/09/2021 10:00 AM TALENT REP Temperature 37.2 ??C (99 ??F) 12/09/2021 10:00 AM TALENT REP Respiratory Rate 14 12/09/2021 8:29 AM TALENT REP Oxygen Saturation 99% 12/09/2021 10:00 AM TALENT REP Inhaled Oxygen Concentration - - Weight 68.3 kg (150 lb 9.2 oz) 12/09/2021 8:31 AM TALENT REP Height 155 cm (5' 1.02) 12/09/2021 8:31 AM TALENT REP Body Mass Index 28.43 12/09/2021 8:31 AM TALENT REP documented in this encounter Discharge Instructions Discharge InstructionsValerie Malone M.D. - 12/09/2021 9:29 AM CST If you are unable to keep yourself well hydrated at home, please feel free to return. NT REP AttachmentsThe following attachments cannot be sent through Care Everywhere. Morning Sickness (Czech)documented in this encounter Medications at Time [...] normal. ASSESSMENT/PLAN IMPRESSION AND PLAN Vomiting with [id number] dehydration during . I gave normal saline 1 L IV, [id number] mg IV, Zofran 4 mg IV. She [...] 8 Weeks Gestation Valerie Malone M.D. 12/09/21934 NT REP documented in this encounter Plan of Treatment [...] 1,000 mL New Bag 12/09/2021 8:48 AM TALENT REP 1,000 mL 1000 mL/hr 1,000 mL, intravenous, at 1,000 mL/hr, Administer over 1 Hours, Once, On Sun12/09/21 at 0836, For 1 dose ondansetron (PF) injection 4 mg (ZOFRAN) Given 12/09/2021 9:31 AM TALENT REP 4 mg 4 mg, intravenous, Once, On Sun12/09/21 at 0921, For 1 dose pyridoxine (vitamin B6) injection 100 mg Given 12/09/2021 9:00 AM TALENT REP 100 mg 100 mg, intravenous, Once, On Sun12/09/21 at 0836, For 1 dose sodium chloride 0.9 % injection 10 mL Given 12/09/2021 8:45 AM TALENT REP 10 mL 10 mL, intravenous, As needed, [...] Recently Administered Medications Times are shown in TALENT REP. Scheduled Medication Order 12/07/2021 12/08/2021 12/09/2021 NaCl [...] injection documented in this encounter Care Teams Compliance Tester Relationship Specialty Start Date End Date Ben Arce M.D. PCP - General Family Medicine 01/13/[address] [facility] [place] [phone] documented as of this encounter
--- OUTSIDE RECORDS SUMMARY | 2022-07-17 12:50 | XMS_ITS | Encounter Summary ---
:1990 Author Organization [facility] Address [address] [place] [address] Care Team Providers Name Role Phone Ben Arce M.D. Primary Care Provider Reason for Referral Outpatient (Routine) - Authorized Specialty Diagnoses / Procedures Referred By Contact Refer red To Contact Diagnoses Subdermal Implantable Contraceptive Removal Rylie Mcdowell M.D. [facility] Procedures Subdermal Contraceptive Device [facility] [place] [address] Referral ID Status Reason Start Date Expiration Date Visits V isits Requested Authorized [id number] Authorized 12/01/2021 12/01/2022 1 1 T FOLDER Reason for Visit Reason Comments nexplanon removal Early . LMP 10/29/21. Pt will see Dr. Swenson in [place] with [facility] for . Appointment Request (Routine) - Closed Specialty Diagnoses / Procedures Referred By Contact Refer red To Contact Obstetrics and Gynecology Referral ID Status Reason Start Date Expiration Date Visits Requ ested Visits Authorized [id number] Closed 11/29/2021 11/29/2022 1 1 Encounter Details Date Type Department Care Team Description 12/01/2021 Office Visit Department of Rylie Mcdowell Subdermal Imp lancesar Obstetrics and Minoo Contraceptive Removal Gynecology in [address] (Primary Dx) [place], [place] [address] [facility] [address] [place], [place] [phone] (Work) [phone] Social History Tobacco Use Types Packs/Day Years [...] do you attend advent or Never 2021 evangelical services? Do you [...] at Date Recorded Female 12/02/2021 5:19 PM SHEET FOLDER documented as of this encounter Last Filed Vital Signs Vital Sign Reading Time Taken Comments Blood Pressure 155/91 12/01/2021 2:56 PM SHEET FOLDER Pulse 84 12/01/2021 2:56 PM SHEET FOLDER Temperature 36.2 ??C (97.2 ??F) 12/01/2021 2:56 PM SHEET FOLDER Respiratory Rate - - Oxygen Saturation - - Inhaled Oxygen Concentration - - Weight 69.5 kg (153 lb 4.8 oz) 12/01/2021 2:56 PM SHEET FOLDER Height - - Body Mass Index 28.94 11/08/2021 12:40 PM SHEET FOLDER documented in this encounter Progress Notes Rylie Mcdowell M.D. - 12/01/2021 3:15 PM CST SUBJECTIVE CHIEF COMPLAINT / REASON FOR VISIT Chief Complaint Patient presents with ??? nexplanon removal Early . LMP 10/29/21. Pt will see Dr. Swenson in [place] with [facility] for . HISTORY OF PRESENT [...] and Family: Twice a week ??? Attends Religion Services: Never ??? Active Member of Clubs [...] levels - plan US once HCG above 5638-1059 - Patient is following up at [facility] Diet and exercise, PNV and [...] are no discontinued medications. Rylie Mcdowell M.D. T FOLDER documented in this encounter Procedure Notes Rylie [...] lidocaine POST-PROCEDURE DETAILS Complications: no apparent complications CASINO WORKER T FOLDER documented in this encounter Plan of Treatment Not on filedocumented as of this encounter Procedures Procedure Name Priority Date/Time Associated Diagnosis Comme nts LA RMVL DRUG IMPL Routine 12/01/2021 4:11 PM Subdermal Implant able Results for this SHEET FOLDER Contraceptive Removal proced ure are in the results section. documented in this encounter Results LA RMVL DRUG IMPL (12/01/2021 4:11 PM SHEET FOLDER) Narrative MMODAL - 12/01/2021 4:11 PM SHEET FOLDER Rylie Mcdowell M.D. ? 12/01/2021 ??4:12 PM [...] Primary documented in this encounter Care Teams Printing And Stamping Supervisor Relationship Specialty Start Date End Date Ben Arce M.D. PCP - General Family Medicine 01/13/[address] [place] [address] documented as of this encounter
--- OUTSIDE RECORDS SUMMARY | 2022-07-17 12:50 | XMS_ITS | Encounter Summary ---
:1990 Author Organization [facility] Address [address] [place] [address] Care Team Providers Name Role Phone Ben Arce M.D. Primary Care Provider Reason for Visit Reason Comments Med Refill Encounter Details Date Type Department Care Team Description 11/24/2021 Refill Department of Family Medicine Ben Maynard M.D. Med Refill in [facility] [address] [place] [phone] [phone] (Wo rk) Social History Tobacco Use Types [...] do you attend orthodoxy or Never 2021 restorationist services? Do you [...] at Date Recorded Female 12/02/2021 5:19 PM PARKING ENFORCEMENT TECHNICIAN documented as of this encounter Plan of Treatment Not on filedocumented as of this encounter Visit Diagnoses Not on filedocumented in this encounter Care Teams Operations Officer Afloat Relationship Specialty Start Date End Date Ben Arce M.D. PCP - General Family Medicine 01/13/[address] [place] [address] documented as of this encounter
--- OUTSIDE RECORDS SUMMARY | 2022-07-17 12:50 | XMS_ITS | Encounter Summary ---
:1990 Author Organization [facility] Address [address] [place] [address] Care Team Providers Name Role Phone Ben Arce M.D. Primary Care Provider Reason for Referral Specialty Diagnoses / Procedures Referred By Contact Refer red To Contact Ben rAce M.D. [facility] [address] [place] [address] Referral ID Status Reason Start Date Expiration Date Visits Requ ested Visits Authorized NATRIX Encounter Details Date Type Department Care Team Description 11/20/2021 Orders Only [facility] PCP [facility]TH MNT Kimberly Arce M.D. [address] [place], [place] [phone] (Wo rk) Social History [...] do you attend evangelical or Never 2021 pentecostalism services? Do you [...] at Date Recorded Female 12/02/2021 5:19 PM DOMINATRIX documented as of this encounter Plan of Treatment Scheduled Referrals Name Type Priority Associated Order Schedule Diagnoses Covid immunization Outpatient Referral Routine Ex pected: office visit Booster 022 (Approximate), Expires: 11/20/2022 documented as of this encounter Visit Diagnoses Not on filedocumented in this encounter Care Teams Industrial Maintenance Electrician Relationship Specialty Start Date End Date Ben Arce M.D. PCP - General Family Medicine 01/13/[address] [place] [phone] documented as of this encounter
--- OUTSIDE RECORDS SUMMARY | 2022-07-17 12:50 | XMS_ITS | Encounter Summary ---
:1990 Author Organization [facility] Address [address] [place] [address] Care Team Providers Name Role Phone Ben Arce M.D. Primary Care Provider Encounter Details Date Type Department Care Team Description 12/20/2021 Hospital Encounter Department of Cheikh Gautam Laboratory Medicine Minoo Garcia Supervis ion Of Other in [facility] Unspecified [address] [place] [address] Social History Tobacco Use Types Packs/Day Years [...] do you attend judaism or Never 2021 orthodoxy services? Do you [...] at Date Recorded Female 12/02/2021 5:19 PM INSTRUMENTATION AND CONTROLS DESIGNER documented as of this encounter Medications [...] Encounter For Resul ts for this AM INSTRUMENTATION AND CONTROLS DESIGNER Supervision Of Other procedu re are in Normal the results Unspecified section. Trimester URINALYSIS WITH Routine 12/20/2021 11:26 Encounter For Results for this MICROSCOPIC IF AM INSTRUMENTATION AND CONTROLS DESIGNER Supervision Of Other proce dure are in INDICATED, U Normal the results Unspecified section. Trimester BACTERIAL CULTURE, Routine 12/20/2021 11:26 Encounter For Resu lts for this AEROBIC + SUSC, AM INSTRUMENTATION AND CONTROLS DESIGNER Supervision Of Other proc edure are in URINE Normal the results Unspecified section. Trimester documented in this encounter Results Hemoglobin A1c (12/20/2021 11:34 AM INSTRUMENTATION AND CONTROLS DESIGNER) P athologist Signature Hemoglobin A1c, 5.2 4.2 - 5.6 12/20/2021 OW[place] B % 12:27 PM INSTRUMENTATION AND CONTROLS DESIGNER Specimen Anatomical Collection Method Collection Time Receive d Time (Source) Location / / Volume Laterality Blood (Blood, 12/20/2021 11:34 12/20/2021 Venous) AM INSTRUMENTATION AND CONTROLS DESIGNER 11:40 AM INSTRUMENTATION AND CONTROLS DESIGNER Cheikh Gautam M.D. LAB BLOOD ADD-ON Performing Organization Address City/State/ZIP Code Phon e Number [facility] [address] [place] [address] [place] [address] System in [place] [address] Bacterial Culture, Aerobic + Susc, Urine (12/20/2021 11:26 AM INSTRUMENTATION AND CONTROLS DESIGNER) Patholo gist Method Time Signature Urine Culture No growth 12/21/2021 MK[place] after 1 day 8:40 AM INSTRUMENTATION AND CONTROLS DESIGNER of incubation. Specimen Anatomical Collection Method Collection Time Receive d Time (Source) Location / / Volume Laterality Urine (Urine, 12/20/2021 11:26 12/20/2021 2:19 Midstream) AM INSTRUMENTATION AND CONTROLS DESIGNER PM INSTRUMENTATION AND CONTROLS DESIGNER Comment: Specimen Source Site: Urine Cheikh Gautam M.D. LAB MICROBIOLOGY - GENERAL O RDERABLES Performing Organization Address City/State/ZIP Code Phon e Number [facility] [address] [place] [address] [place] [address] System in [place] [address] [place] [address] Urinalysis with Microscopic if Indicated (12/20/2021 11:26 AM INSTRUMENTATION AND CONTROLS DESIGNER) P athologist Signature Source Urine, 12/20/2021 [place] Urine, Clean 12:12 PM INSTRUMENTATION AND CONTROLS DESIGNER Catch Clarity Clear Clear 12/20/2021 [place] 12:12 PM INSTRUMENTATION AND CONTROLS DESIGNER Color Yellow 12/20/2021 OW[place] 12:12 PM INSTRUMENTATION AND CONTROLS DESIGNER Comment: ----REFERENCE VALUE---- Colorless Yellow Ronda Blood Negative Negative 12/20/2021 12:12 PM INSTRUMENTATION AND CONTROLS DESIGNER OW[place] Nitrite Negative Negative 12/20/2021 12:12 PM INSTRUMENTATION AND CONTROLS DESIGNER OW[place] Leukocyte Esterase Negative Negative 12/20/2021 12:[address] [place] Protein Negative mg/dL 12/20/2021 12:12 PM INSTRUMENTATION AND CONTROLS DESIGNER OWAT Comment: ----REFERENCE VALUE---- Negative Trace Glucose Negative Negative mg/dL 12/20/2021 12:12 PM INSTRUMENTATION AND CONTROLS DESIGNER O FRANSICO Ketone Negative Negative mg/dL 12/20/2021 12:12 PM INSTRUMENTATION AND CONTROLS DESIGNER O FRANSICO Bilirubin Negative Negative 12/20/2021 12:12 PM INSTRUMENTATION AND CONTROLS DESIGNER [place] pH 6.0 5.0 - 8.0 12/20/2021 12:12 PM INSTRUMENTATION AND CONTROLS DESIGNER OW[place] Specific Perkins 1.005 1.001 - 1.035 12/20/2021 12:12 PM INSTRUMENTATION AND CONTROLS DESIGNER OW[place] Urobilinogen 0.2 0.2 - 1.0 mg/dL 12/20/2021 12:[address] [place] Specimen Anatomical Collection Method Collection Time Receive d Time (Source) Location / / Volume Laterality Urine (Urine, 12/20/2021 11:26 12/20/2021 Clean Catch) AM INSTRUMENTATION AND CONTROLS DESIGNER 12:06 PM INSTRUMENTATION AND CONTROLS DESIGNER Cheikh Gautam M.D. LAB URINE ORDERABLES Performing Organization Address City/State/ZIP Code Phon e Number [facility] [address] [place] [address] [place] [address] System in [place] [address] documented in this encounter Visit Diagnoses Diagnosis Encounter For Supervision Of Other Stella echols Unspecified Trimester (HCC) documented in this encounter Additional Health Concerns Assessment Noted Time PHQ-9 Depression Total Score: 4 12/20/2021 10:52 AM CS T documented as of this encounter Care Teams Picker Feeder Relationship Specialty Start Date End Date Ben Arce M.D. PCP - General Family Medicine 01/13/[address] [place] [phone] documented as of this encounter
--- OUTSIDE RECORDS SUMMARY | 2022-07-17 12:50 | XMS_ITS | Encounter Summary ---
:1990 Author Organization [facility] Address [address] [place] [address] Care Team Providers Name Role Phone Ben Arce M.D. Primary Care Provider Reason for Referral Outpatient (Routine) - Authorized Specialty Diagnoses / Procedures Referred By Contact Refer red To Contact Obstetrics and Cheikh Gautam [facility] Gynecology Minoo Referral ID Status Reason Start Date Expiration Date Visits V isits Requested Authorized [id number] Authorized 12/20/2021 12/20/2022 15 15 Scheduling Instructions Every 4 weeks until 28 week gestation. Then every 2 weeks until 36 week gestati on. Then every 1 week until 40+ week gestati on. TE RUBY ON RAILS DEVELOPER Reason for Visit Reason Comments Initial Visit 7w 3d Outpatient (Routine) - Closed Specialty Diagnoses / Procedures Referred By Contact Refer red To Contact Obstetrics and Diagnoses Examination Test With Positive Result (HCC) Terrence Swenson M.D. [facility] Gynecology [address] [place] [address] Referral ID Status Reason Start Date Expiration Date Visits Requ ested Visits Authorized [id number] Closed 12/01/2021 12/01/2022 1 1 Encounter Details Date Type Department Care Team Description 12/20/2021 Initial Department of Obstetrics [place] in [place], [place]: 6w1d and Gynecology in [place], [place] [address] [place] [address] Social History Tobacco Use Types Packs/Day [...] at Date Recorded Female 12/02/2021 5:19 PM REMOTE RUBY ON RAILS DEVELOPER documented as of this encounter Last Filed Vital Signs Vital Sign Reading Time Taken Comments Blood Pressure 136/80 12/20/2021 10:52 AM REMOTE RUBY ON RAILS DEVELOPER Pulse - - Temperature - - Respiratory Rate - - Oxygen Saturation - - Inhaled Oxygen Concentration - - Weight 69.2 kg (152 lb 8.9 oz) 12/20/2021 10:52 AM REMOTE RUBY ON RAILS DEVELOPER Height - - Body Mass Index 28.8 12/09/2021 8:31 AM REMOTE RUBY ON RAILS DEVELOPER documented in this encounter Progress Notes Cheikh [...] Vaccinations: COVID complete but needs booster/Flu declines Chief Contract Officer: Pap NIL w/ neg HPV 11/2021 Aneuploidy screening/Carrier Screening: declines Preeclampsia prevention: aspirin to start at 12 weeks FAS: 28 week labs: TDAP /Rhogam GBS Growth Ultrasounds: surveillance: Presentation (36 weeks): Del planning: PPBC: Problems: 1. Hx preeclampsia: aspirin to start at 12 weeks. Need to get baseline preE labs 2. Hx GDM: Early A1C ordered TE RUBY ON RAILS DEVELOPER documented in this encounter Plan of [...] Diagnoses Obstetrics and Outpatient Referral Routine 15 [facility] Gynecology office starting 0 12/20/2021 visit [...] US PROCEDURES Hemoglobin A1c (12/20/2021 11:34 AM REMOTE RUBY ON RAILS DEVELOPER) P athologist Signature Hemoglobin A1c, 5.2 4.2 - 5.6 12/20/2021 OW[place] B % 12:27 PM REMOTE RUBY ON RAILS DEVELOPER Specimen Anatomical Collection Method Collection Time Receive d Time (Source) Location / / Volume Laterality Blood (Blood, 12/20/2021 11:34 12/20/2021 Venous) AM REMOTE RUBY ON RAILS DEVELOPER 11:40 AM REMOTE RUBY ON RAILS DEVELOPER Cheikh Gautam M.D. LAB BLOOD ADD-ON Performing Organization Address City/State/ZIP Code Phon e Number [facility] [address] [place] [address] [facility] [place] [address] System in [place] [address] documented in this [...] as of this encounter Care Teams Electrical Prospecting Observer Relationship Specialty Start Date End Date Ben Arce M.D. PCP - General Family Medicine 01/13/[address] [place] [address] documented as of this encounter
--- OUTSIDE RECORDS SUMMARY | 2022-07-17 12:50 | XMS_ITS | Encounter Summary ---
:[address] [facility] Address [address] [place] [address] Care Team Providers Name Role Phone Ben Arce M.D. Primary Care Provider Reason for Visit Reason Comments Hand Injury Medical Information Encounter Details Date Type Department Care Team Description 02/11/2022 Nurse Triage Department of [facility] Rylie Hightower Hand Injury; Medical Medicine in [place], [place] [address] [facility] [address] [place] [address] [phone] Social History Tobacco Use Types Packs/Day Years [...] at Date Recorded Female 12/02/2021 5:19 PM TRUMPET TEACHER documented as of this encounter Miscellaneous Notes [...] or deformed) Protocols used: HAND AND WRIST [id number] documented in this encounter Plan of Treatment Not on filedocumented as of this encounter Visit Diagnoses Not on filedocumented in this encounter Additional Health Concerns Assessment Noted Time PHQ-9 Depression Total Score: 4 12/20/2021 10:52 AM CS T documented as of this encounter Care Teams Mask Inspector Relationship Specialty Start Date End Date Ben Arce M.D. PCP - General Family Medicine 01/13/[address] [place] [phone] documented as of this encounter
--- OUTSIDE RECORDS SUMMARY | 2022-07-17 12:50 | XMS_ITS | Encounter Summary ---
:1990 Author Organization [facility] Address [address] [place] [address] Care Team Providers Name Role Phone Ben Arce M.D. Primary Care Provider Encounter Details Date Type Department Care Team Description 05/18/2021 Hospital Encounter Department of Alexander Rendon, Pain Hand Right Radiology, [facility], in [place] [address] [place], [place] [address] [place] [address] [place], [place] [phone] (Work) [phone] Social History Tobacco Use Types Packs/Day Years [...] do you attend worship or Never 2021 scientologist services? Do you [...] at Date Recorded Female 12/02/2021 5:19 PM JOB PLACEMENT SPECIALIST documented as of this encounter Medications [...] Right documented in this encounter Care Teams Tile Presser Relationship Specialty Start Date End Date Ben Arce M.D. PCP - General Family Medicine 01/13/[address] [place] [address] documented as of this encounter
--- OUTSIDE RECORDS SUMMARY | 2022-07-17 12:50 | XMS_ITS | Encounter Summary ---
:1990 Author Organization [facility] Address [address] [place] [address] Care Team Providers Name Role Phone Ben Arce M.D. Primary Care Provider Encounter Details Date Type Department Care Team Description 12/20/2021 Silent Schedule Department of Terrenec Swenson, Pregnanc y Examination Obstetrics and M.D. Test With Positive Gynecology in [address] [place], [place] [address] [address] [place], [place] [phone] (Work) [phone] Social History Tobacco Use Types Packs/Day Years [...] you attend jehovah's witness or Never 2021 anabaptism services? Do you [...] at Date Recorded Female 12/02/2021 5:19 PM TRAIN ELECTRONIC TECHNICIAN documented as of this encounter Plan of Treatment Not on filedocumented as of this encounter Procedures Procedure Name Priority Date/Time Associated Comments Diagnosis US OB FIRST RAD - Routine 12/20/2021 10:50 Results fo r this TRIMESTER (most inpatients AM TRAIN ELECTRONIC TECHNICIAN Examination Test procedu re are in and all With Positive the results outpatients) Result section. documented in this encounter Results US OB First Trimester (12/20/2021 10:50 AM TRAIN ELECTRONIC TECHNICIAN) Anatomical Region Laterality Modality Body, Ultrasound OB RST LOS, Ultrasound ARZ LOS N/A Ultrasound Specimen (Source) Anatomical Collection Method Collection Time Re ceived Time Location / / Volume Laterality 12/20/2021 12:31 PM TRAIN ELECTRONIC TECHNICIAN Impressions 12/20/2021 12:34 PM TRAIN ELECTRONIC TECHNICIAN Single, viable, intrauterine gestation w ith CARLOS of August 14, 2022 (not consistent with menstrual dating). Narrative 12/20/2021 12:34 PM TRAIN ELECTRONIC TECHNICIAN EXAM: US OB FIRST TRIMESTER COMPARISON: None Physician: Dr. Swenson FINDINGS: Gestational age and CARLOS by LMP or OB/EHR assignment: 7 w 3 d, CARLOS: 08/05/2022 INTRAUTERINE Pole: Normal, Twin-Rump Length: 0 .50 cm Gestational Sac: Normal [...] 3 d, CARLOS: 08/05/2022 INTRAUTERINE Pole: Normal, Twin-Rump Length: 0 .50 cm Gestational Sac: Normal [...] documented as of this encounter Care Teams Finish Cleaner Relationship Specialty Start Date End Date Ben Arce M.D. PCP - General Family Medicine 01/13/21 [address] [place] [address] documented as of this encounter
--- OUTSIDE RECORDS SUMMARY | 2022-07-17 12:50 | XMS_ITS | Encounter Summary ---
:1990 Author Organization [facility] Address [address] [place] [address] Care Team Providers Name Role Phone Ben Arce M.D. Primary Care Provider Encounter Details Date Type Department Care Team Description 12/20/2021 Hospital Encounter Department of Cheikh Gautam Laboratory Medicine Minoo Garcia Supervis ion Of Other in [facility] Unspecified [address] [place] [address] Social History Tobacco Use Types Packs/Day Years [...] do you attend synagogue or Never 2021 spiritism services? Do you [...] at Date Recorded Female 12/02/2021 5:19 PM ASSEMBLER ARRANGER documented as of this encounter Medications at [...] Encounter For Results for this , S ASSEMBLER ARRANGER Supervision Of Other procedu re are in Normal the results Unspecified section. Trimester HIV-1/-2 AG AND AB Routine 12/20/2021 11:34 AM Encounter For R esults for this SCRN, ASSEMBLER ARRANGER Supervision Of Other proce dure are in PLASMA Normal the results Unspecified section. Trimester SYPHILIS TOTAL AB Routine 12/20/2021 11:34 AM Encounter For Re sults for this W/ REFLEX S ASSEMBLER ARRANGER Supervision Of Other procedu re are in Normal the results Unspecified section. Trimester HBS ANTIGEN Routine 12/20/2021 11:34 AM Encounter For Results for this , S ASSEMBLER ARRANGER Supervision Of Other procedu re are in Normal the results Unspecified section. Trimester ABORH, RBC Routine 12/20/2021 11:34 AM Encounter For Results for this ASSEMBLER ARRANGER Supervision Of Other procedu re are in Normal the results Unspecified section. Trimester RUBELLA ANTIBODIES, Routine 12/20/2021 11:34 AM Encounter For Results for this IGG ASSEMBLER ARRANGER Supervision Of Other procedu re are in Normal the results Unspecified section. Trimester CBC WITHOUT Routine 12/20/2021 11:34 AM Encounter For Results for this DIFFERENTIAL, B ASSEMBLER ARRANGER Supervision Of Other proc edure are in Normal the results Unspecified section. Trimester ANTIBODY SCREEN, B Routine 12/20/2021 11:34 AM Encounter For R esults for this ASSEMBLER ARRANGER Supervision Of Other procedu re are in Normal the results Unspecified section. Trimester documented in this encounter Results Hepatitis C Virus Antibody Screen (12/20/2021 11:34 AM ASSEMBLER ARRANGER) P athologist Signature HCV Ab Scrn Negative Negative 12/21/2021 [facility] , S 8:10 AM ASSEMBLER ARRANGER Comment: Zcifxf-wg-gbwgid ratio is <1.00 . Specimen Anatomical Collection Method Collection Time Receive d Time (Source) Location / / Volume Laterality Blood (Blood, 12/20/2021 11:34 12/21/2021 6:40 Venous) AM ASSEMBLER ARRANGER AM ASSEMBLER ARRANGER Cheikh Gautam M.D. LAB MICROBIOLOGY - BLOOD ORD ERABLES Performing Organization Address City/[facility]/ZIP Code Phon e Number [facility] [address] [place] [address] [place] [address] [place] [address] Laboratory Medicine and Pathology [address] SANDOVAL Syphilis Total Ab w/ Reflex, Serum (12/20/2021 11:34 AM ASSEMBLER ARRANGER) Patholo gist Method Time Signature Syphilis Nonreactive Nonreactive 12/21/2021 [facility] Total Ab w/ 11:40 AM ASSEMBLER ARRANGER Reflex Comment: No serologic evidence of infection with T. pallidum (syphilis). ??Repeat testing may be cons idered in patients with suspected acute or primary syphilis in 2-4 weeks. For additional information on interpreta tion of the syphilis reverse algorithm and resul ts, see: [email or web address] df Specimen Anatomical Collection Method Collection Time Receive d Time (Source) Location / / Volume Laterality Blood (Blood, 12/20/2021 11:34 12/20/2021 6:27 Venous) AM ASSEMBLER ARRANGER PM ASSEMBLER ARRANGER Cheikh Gautam M.D. LAB BLOOD ADD-ON Performing Organization Address City/[facility] Phon e Number [phone] [place] [address] System in [address] Rubella Antibodies, IgG (12/20/2021 11:34 AM ASSEMBLER ARRANGER) P athologist Signature Rubella Ab, Positive 12/21/2021 [facility] IgG, S 11:40 AM ASSEMBLER ARRANGER Comment: Results suggest response to immunization or prior exposure to the virus. ----REFERENCE VALUE---- Vaccinated: Positive (>=1.0 AI) Unvaccinated: Negative (<=0.7 AI) Rubella IgG Antibody Index 2.6 12/21/2021 11 :40 AM ASSEMBLER ARRANGER [facility] Specimen Anatomical Collection Method Collection Time Receive d Time (Source) Location / / Volume Laterality Blood (Blood, 12/20/2021 11:34 12/20/2021 6:27 Venous) AM ASSEMBLER ARRANGER PM ASSEMBLER ARRANGER Cheikh Gautam M.D. LAB MICROBIOLOGY - BLOOD ORD ERABLES Performing Organization Address City/State/ZIP Code Phon e Number [facility]- [address] [place] [address] [phone] [place] [address] System [address] HIV-1/-2 Ag and Ab Scrn, Plasma (12/20/2021 11:34 AM ASSEMBLER ARRANGER) P athologist Signature HIV Ag/Ab Negative Negative 12/21/2021 [facility] Scrn, 11:40 AM ASSEMBLER ARRANGER P Comment: Negative result does not rule out HIV in fection. If exposure to HIV infection occurred <14 d ays ago, contact the laboratory to request additi on of HIV-1 RNA detection / quantification test. HIV-1 p24 Ag Scrn, P Negative Negative 12/21/2021 11:40 AM ASSEMBLER ARRANGER [facility] Comment: Negative result does not rule out HIV in fection. If exposure to HIV infection occurred <14 d ays ago, contact the laboratory to request additi on of HIV-1 RNA detection / quantification test. HIV-1 Ab Scrn, P Negative Negative 12/21/2021 11: 40 AM ASSEMBLER ARRANGER [facility] Comment: Negative result does not rule out HIV in fection. If exposure to HIV infection occurred <14 d ays ago, contact the laboratory to request additi on of HIV-1 RNA detection / quantification test. HIV-2 Ab Scrn, P Negative Negative 12/21/2021 11: 40 AM ASSEMBLER ARRANGER [facility] Comment: Negative result does not rule out HIV in fection. If exposure to HIV infection occurred <14 d ays ago, contact the laboratory to request additi on of HIV-1 RNA detection / quantification test. Specimen Anatomical Collection Method Collection Time Receive d Time (Source) Location / / Volume Laterality Blood (Blood, 12/20/2021 11:34 12/20/2021 6:27 Venous) AM ASSEMBLER ARRANGER PM ASSEMBLER ARRANGER Cheikh Gautam M.D. LAB MICROBIOLOGY - BLOOD ORD ERABLES Performing Organization Address City/State/ZIP Code Phon e Number [facility]- [address] [place] [address] [phone] [place] [address] [address] HBs Antigen , Serum (12/20/2021 11:34 AM ASSEMBLER ARRANGER) [facility] Method Time Signature HBs Antigen Non reactive Non reactive 12/20/2021 [facility] , S 4:50 PM ASSEMBLER ARRANGER Specimen Anatomical Collection Method Collection Time Receive d Time (Source) Location / / Volume Laterality Blood (Blood, 12/20/2021 11:34 12/20/2021 3:49 Venous) AM ASSEMBLER ARRANGER PM ASSEMBLER ARRANGER Cheikh Gautam M.D. LAB MICROBIOLOGY - BLOOD ORD ERABLES Performing Organization Address City/State/ZIP Code Phon e Number [facility]- [address] [place] [address] [place] [facility] [place] [address] [facility] [address] (ABNORMAL) CBC without Differential (12/20/2021 11:34 AM ASSEMBLER ARRANGER) [facility] Method Time Signature Hemoglobin 14.1 11.6 - 12/20/2021 [facility] 15.0 g/dL 11:44 AM ASSEMBLER ARRANGER Hematocrit 41.0 35.5 - 12/20/2021 [facility] 44.9 % 11:44 AM ASSEMBLER ARRANGER Erythrocytes 4.91 3.92 - 12/20/2021 [facility] 5.13 11:44 AM ASSEMBLER ARRANGER x10(12)/L MCV 83.5 78.2 - 12/20/2021 [facility] 97.9 fL 11:44 AM ASSEMBLER ARRANGER RBC Distrib Width 11.7 (L) 12.2 - 12/20/2021 [facility] 16.1 % 11:44 AM ASSEMBLER ARRANGER Platelet Count 360 157 - 371 12/20/2021 [facility] x10(9)/L 11:44 AM ASSEMBLER ARRANGER Leukocytes 11.1 (H) 3.4 - 9.6 12/20/2021 [facility] x10(9)/L 11:44 AM ASSEMBLER ARRANGER Specimen Anatomical Collection Method Collection Time Receive d Time (Source) Location / / Volume Laterality Blood (Blood, 12/20/2021 11:34 12/20/2021 Venous) AM ASSEMBLER ARRANGER 11:40 AM ASSEMBLER ARRANGER Cheikh M Dain M.D. LAB BLOOD ADD-ON Performing Organization Address City/[facility]/ZIP Code Phon e Number [facility]- [address] [place] [address] [facility] [facility] [place] [facility] [place] [address] System in [place] [address] Antibody Screen, RBC (with reflex Antibody ID) (12/20/2021 11:34 AM ASSEMBLER ARRANGER) P athologist Signature Antibody Screen NEG 12/20/2021 [facility] 5:16 PM ASSEMBLER ARRANGER Specimen Anatomical Collection Method Collection Time Receive d Time (Source) Location / / Volume Laterality Blood (Blood, 12/20/2021 11:34 12/20/2021 3:49 Venous) AM ASSEMBLER ARRANGER PM ASSEMBLER ARRANGER Cheikh Gautam M.D. LAB BLOOD BANK TEST ORDERABL ES Performing Organization Address City/[facility]/ZIP [facility]on e Number [facility]- [address] [place] [address] [facility] [place], [place] [address] [place] [address] [address] [facility] ABORh, RBC (12/20/2021 11:34 AM ASSEMBLER ARRANGER) P athologist Signature ABO Group O 12/20/2021 5:16 [facility] PM ASSEMBLER ARRANGER Rh Type POS 12/20/2021 5:16 [facility] PM ASSEMBLER ARRANGER Specimen Anatomical Collection Method Collection Time Receive d Time (Source) Location / / Volume Laterality Blood (Blood, 12/20/2021 11:34 12/20/2021 3:51 Venous) AM ASSEMBLER ARRANGER PM ASSEMBLER ARRANGER Cheikh Gautam M.D. LAB BLOOD BANK TEST ORDERABL ES Performing Organization Address City/[facility]/ZIP [facility] [place] e Number [facility]- [address] [place] [address] [facility] [place], [place] [address] [place] [address] [address] [facility] documented in this encounter Visit Diagnoses Diagnosis Encounter For Supervision Of Other Stella l Unspecified Trimester (HCC) documented in this encounter Additional Health Concerns Assessment Noted Time PHQ-9 Depression Total Score: 4 12/20/2021 10:52 AM CS T documented as of this encounter Care Teams Embroidery Specialist Relationship Specialty Start Date End Date Ben Arce M.D. PCP - General Family Medicine 01/13/[address] [place] [phone] documented as of this encounter
--- OUTSIDE RECORDS SUMMARY | 2022-07-17 12:50 | XMS_ITS | Encounter Summary ---
:1990 Author Organization [facility] Address [address] [place] [address] Care Team Providers Name Role Phone Ben Arce M.D. Primary Care Provider Encounter Details Date Type Department Care Team Description 11/24/2021 Orders Only Department of Robert, Erika Hammer, Abnormal L aboratory Obstetrics and METALLURGY TEACHER, C.N.P., Results (Samina pendleton Dx) Gynecology in [place], [place] [address] [place] [phone] Social History Tobacco Use Types Packs/Day Years [...] do you attend baptism or Never 2021 buddhism services? Do you [...] at Date Recorded Female 12/02/2021 5:19 PM STOCK CONTROLLER documented as of this encounter Plan of Treatment Not on filedocumented as of this encounter Results (ABNORMAL) hCG (Human Chorionic Gonadotropin), Quantitative, (11/28/2021 4:00 PM STOCK CONTROLLER) P athologist Signature HCG, 94 (H) <5 IU/L 11/28/2021 [facility] Quantitative, 7:47 PM STOCK CONTROLLER , P Comment: Biotin has been identified by the meir toro as a potential interfering substance. ??Higher concentr ations of biotin may be found in multivitamins, hair/nail supple ments, and workout supplements. ??If the result does not [facility] clinical observations, repeat testing after patient refrains fr om the use of supplements for at least 12 hours. Specimen Anatomical Collection Method Collection Time Receive d Time (Source) Location / / Volume Laterality Blood (Blood, 11/28/2021 4:00 PM 11/28/19 22 6:56 Venous) STOCK CONTROLLER PM STOCK CONTROLLER Erika Jones APRN, C.N.P., M.S.N. LAB BLOOD ADD-ON Performing Organization Address City/State/ZIP Code Phon e Number [facility]- [address] [place] [address] [place] [address] [place] [address] [facility] [address] [place] documented in this encounter Visit Diagnoses Diagnosis Abnormal Laboratory Results - Primary documented in this encounter Care Teams Telephoto Engineer Relationship Specialty Start Date End Date Ben Arce M.D. PCP - General Family Medicine 01/13/[address] [place] [phone] documented as of this encounter
--- OUTSIDE RECORDS SUMMARY | 2022-07-17 12:50 | XMS_ITS | Encounter Summary ---
:[address] [facility] Address [address] [place] [address] Care Team Providers Name Role Phone Ben Arce M.D. Primary Care Provider Encounter Details Date Type Department Care Team Description 11/28/2021 Hospital Encounter Department of Erika Jones Laboratory Laboratory Medicine CJ HammerN, Results in [place], C.N.PMaribell, M.S.N. [place] [address] [place] [phone] [phone] Social History Tobacco Use Types Packs/Day Years [...] do you attend evangelical or Never 2021 denominational services? Do you [...] at Date Recorded Female 12/02/2021 5:19 PM DATABASE SOFTWARE TECHNICIAN documented as of this encounter Medications [...] Abnormal Laboratory Results for this GONADOTROPIN (HCG), DATABASE SOFTWARE TECHNICIAN Results procedur e are in ROBERTA, the results section. documented in this encounter Results (ABNORMAL) hCG (Human Chorionic Gonadotropin), Quantitative, (11/28/2021 4:00 PM DATABASE SOFTWARE TECHNICIAN) P athologist Signature HCG, 94 (H) <5 IU/L 11/28/2021 [facility] Quantitative, 7:47 PM DATABASE SOFTWARE TECHNICIAN , P Comment: Biotin has been identified [...] (Blood, 11/28/2021 4:00 PM 11/28/19 6:56 Venous) DATABASE SOFTWARE TECHNICIAN PM DATABASE SOFTWARE TECHNICIAN Erika Jones APRN, C.N.P., M.S.N. LAB BLOOD ADD-ON Performing Organization Address City/State/ZIP Code Phon e Number [facility]- [address] [place], [place] [address] [address] [place] [address] [place] [address] [address] [facility] documented in this encounter Visit Diagnoses Diagnosis Abnormal Laboratory Results documented in this encounter Care Teams Regional Sales Director Relationship Specialty Start Date End Date Ben Arce M.D. PCP - General Family Medicine 01/13/[address] [place] [phone] documented as of this encounter
--- OUTSIDE RECORDS SUMMARY | 2022-07-17 12:50 | XMS_ITS | Encounter Summary ---
:1990 Author Organization [facility] Address [address] [place] [address] Care Team Providers Name Role Phone Ben Arce M.D. Primary Care Provider Reason for Visit Reason Comments Nausea OTHER Breast pain Vomiting Positive at home test X 4 Encounter Details Date Type Department Care Team Description 11/24/2021 Comprehensive Visit Department of Grant Jones ncsharyn Test (Primary Dx); Obstetrics and J, REPAIR DEPARTMENT SUPERVISOR, Counseling Bi rth Control; Gynecology in [facility] C.N.P., M.S.N. Pap Smear Examination [place], [place] [address] [place] [phone] Social History Tobacco Use Types Packs/Day Years [...] do you attend confucianism or Never 2021 episcopalian services? Do you [...] at Date Recorded Female 12/02/2021 5:19 PM PATENT ATTORNEY documented as of this encounter Last Filed Vital Signs Vital Sign Reading Time Taken Comments Blood Pressure 166/67 11/24/2021 1:50 PM PATENT ATTORNEY Pulse 118 11/24/2021 1:49 PM PATENT ATTORNEY Temperature 37.2 ??C (99 ??F) 11/24/2021 1:49 PM PATENT ATTORNEY Respiratory Rate - - Oxygen Saturation - - Inhaled Oxygen Concentration - - Weight 71.6 kg (157 lb 12.8 oz) 11/24/2021 1:49 PM PATENT ATTORNEY Height - - Body Mass Index 29.79 11/08/2021 12:40 PM PATENT ATTORNEY documented in this encounter Progress Notes Grant [...] STD testing. Grant Jones APRN, Reji.NDany, M.S.N. NT ATTORNEY documented in this encounter Miscellaneous Notes Addendum Note - Grant Jones APRN, Reji.N.P., M.S.N. - 11/24/2021 1:15 PM PATENT ATTORNEY Addended by: GRANT JONES on: 11/29/2021 08:00 AM Modules accepted: Orders NT ATTORNEY documented in this encounter Plan of Treatment Not on filedocumented as of this encounter Procedures Procedure Name Priority Date/Time Associated Diagnosis Comme nts THINPREP W/HPV Routine 11/24/2021 4:49 PM Pap Smear Results for this CO-TEST SCREEN PATENT ATTORNEY Examination procedure are in the results section. HUMAN CHORIONIC Routine 11/24/2021 2:00 PM Test Resu lts for this GONADOTROPIN (HCG), PATENT ATTORNEY procedur e are in ROBERTA, the results section. HPV WITH GENOTYPING, Routine 11/24/2021 1:53 PM R esults for this PCR, THINPREP PATENT ATTORNEY procedure are in the results section. TEST, POCT, Routine 11/24/2021 1:14 PM Samira t Results for this U (LAB) PATENT ATTORNEY procedure are i n the results section. documented in this encounter Results ThinPrep w/HPV Co-Test Screen (11/24/2021 4:49 PM PATENT ATTORNEY) Component Value Ref Test Analysis Performed Pathologis t Range Method Time At Signature 11/28/2021 HK 3:47 PM PATENT ATTORNEY Report DEBRA Boles(ASCP) 11/28/2021 HK electronically 3:47 PM signed by PATENT ATTORNEY I verify that I have examined all relevant slides/materials for the specimen(s) and rendered or confirmed the diagnosis. Gross Description Received specimen 11/28/2021 HK Y in a ThinPrep 3:47 PM vial. PATENT ATTORNEY Pap Test Source Cervical/Endocervi 11/28/2021 HKCY lizbeth 3:47 PM PATENT ATTORNEY Interpretation Cervical/Endocervical ??(ThinPrep): 11/28/2021 HKCY 3:47 PM Satisfactory for Evaluation PATENT ATTORNEY Negative for Intraepithelial Lesion or Malignancy Shift [...] Laterality Varies 11/24/2021 4:49 PM 6:36 (Cervix/Endocerv PATENT ATTORNEY AM PATENT ATTORNEY ix) Narrative This result has an attachment that is no t available. Reji Polanco APRN.N.P., M.S.N. LAB PAP PATHDX ORD ERABLES Performing Organization Address City/State/ZIP Code Phon e Number [facility]- [address] [place] [address] [facility] [address] [facility] [address] [facility] (ABNORMAL) hCG (Human Chorionic Gonadotropin), Quantitative, (11/24/2021 2:00 PM PATENT ATTORNEY) athologist Signature HCG, 6.9 (H) <5 IU/L 11/24/2021 [facility] Quantitative, 2:22 PM PATENT ATTORNEY , P Comment: Biotin has been identified by the meir toro as a potential interfering substance. ??Higher concentr ations of biotin may be found in multivitamins, hair/nail supple ments, and workout supplements. ??If the result does not [facility] clinical observations, repeat testing after patient refrains fr om the use of supplements for at least 12 hours. Specimen Anatomical Collection Method Collection Time Receive d Time (Source) Location / / Volume Laterality Blood (Blood, 11/24/2021 2:00 PM 11/24/19 2:01 Venous) PATENT ATTORNEY PM PATENT ATTORNEY Grant Jones APRN, C.N.P., M.S.N. LAB BLOOD ADD-ON Performing Organization Address City/State/ZIP Code Phon e Number [facility]- [address] [place], [place] [address] [place] [address] [place] [address] [place] [address] [place] HPV with Genotyping, PCR, ThinPrep (11/24/2021 1:53 PM PATENT ATTORNEY) athologist Signature HPV with Negative Negative 11/25/2021 [facility] Genotyping, 3:27 PM PATENT ATTORNEY ThinPrep, PCR Comment: Negative for high risk HPV by nucleic ac id amplification. ??The following high risk HPV types were not detected: 16, 18, 31, 33, 35, 39, 45, 51, 52, 56, 58, 59, 66, and 68 Specimen Anatomical Collection Method Collection Time Receive d Time (Source) Location / / Volume Laterality Varies 11/24/2021 1:53 PM 6:36 PATENT ATTORNEY AM PATENT ATTORNEY Reji Polnaco APRN.N.Anna., M.S.N. LAB MICROBIOLOGY - GENERAL ORDERABLES Performing Organization Address City/[facility]/ZIP Code Phon e Number [facility]- [address] [place] [address] [place] [address] System in [place] [address] [facility] Test, POCT, Urine (lab) (11/24/2021 1:14 PM PATENT ATTORNEY) P athologist Signature Negative 11/24/2021 NPR[facility] Test, POCT, U 1:21 PM PATENT ATTORNEY Specimen Anatomical Collection Method Collection Time Receive d Time (Source) Location / / Volume Laterality Urine (Urine, 11/24/2021 1:14 PM 11/24/19 1:14 Clean Catch) PATENT ATTORNEY PM PATENT ATTORNEY Grant Jones APRN, C.N.P., M.S.N. LAB POCT ORDERABLE S - DEVICE Performing Organization Address City/[facility]/ZIP Code Phon e Number [facility]- [address] [place] [address] [place] [address] LAB NPRG [facility] [place] [address] documented in this encounter Visit Diagnoses Diagnosis Test - Primary Counseling Control Pap Smear Examination documented in this encounter Care Teams Pricing Consultant Relationship Specialty Start Date End Date Ben Arce M.D. PCP - General Family Medicine 01/13/[address] [place] [phone] documented as of this encounter
--- OUTSIDE RECORDS SUMMARY | 2022-07-17 12:50 | XMS_ITS | Encounter Summary ---
:1990 Author Organization [facility] Address [address] [place] [address] Care Team Providers Name Role Phone Ben Arce M.D. Primary Care Provider Reason for Referral Outpatient (Routine) - Closed Specialty Diagnoses / Procedures Referred By Contact Refer red To Contact Obstetrics and Diagnoses Examination Test With Positive Result (HCC) Terrence Swenson M.D. [facility] Gyne[facility] [address] [phone] Referral ID Status Reason Start Date Expiration Date Visits Requ ested Visits Authorized [id number] Closed 12/01/2021 12/01/2022 1 1 LETTE DRIVER Specialty Diagnoses / Procedures Referred By Contact Refer red To Contact Terrence Swenson M.D. [facility] Region [address] [place] [phone] Referral ID Status Reason Start Date Expiration Date Visits Requ ested Visits Authorized LETTE DRIVER Encounter Details Date Type Department Care Team Description 12/01/2021 Clinical Communication Department of Terrence Swenson Obstetrics and [place] Gynecology in [address]199 [place], [place] [address] [place] [phone] [place], [place] [phone] (Work) [phone] Social History Tobacco Use Types Packs/Day Years [...] do you attend denominational or Never 2021 mosque services? Do you [...] at Date Recorded Female 12/02/2021 5:19 PM AMBULETTE DRIVER documented as of this encounter Miscellaneous Notes [...] following references were used: Nursing Clinical Judgement LETTE DRIVER Telephone Encounter - Anisa White - 12/01/2021 12:26 PM CST Reason for Communication: Patient calling, had a positive home test and a clinic confirmedtest. LMP unknown. Patient is looking to transfer care from [place] [facility] Can Nursing/Provider leave a detailed message?: yes Did the patient refuse triage through Nurse line? (for symptom based concerns): Action Needed: Name of Medication (if relevant): Please send all scheduling replies to scheduling pool. LETTE DRIVER documented in this encounter Plan of Treatment [...] US OB First Trimester (12/20/2021 10:50 AM AMBULETTE DRIVER) Anatomical Region Laterality Modality Body, Ultrasound OB RST LOS, Ultrasound ARZ LOS N/A Ultrasound Specimen (Source) Anatomical Collection Method Collection Time Re ceived Time Location / / Volume Laterality 12/20/2021 12:31 PM AMBULETTE DRIVER Impressions 12/20/2021 12:34 PM AMBULETTE DRIVER Single, viable, intrauterine gestation w ith CARLOS of August 14, 2022 (not consistent with menstrual dating). Narrative 12/20/2021 12:34 PM AMBULETTE DRIVER EXAM: US OB FIRST TRIMESTER COMPARISON: None Physician: Dr. Swenson FINDINGS: Gestational age and CARLOS by LMP or OB/EHR assignment: 7 w 3 d, CARLOS: 08/05/2022 INTRAUTERINE Pole: Normal, [place]-Rump Length: 0 .50 cm Gestational Sac: Normal [...] 3 d, CARLOS: 08/05/2022 INTRAUTERINE Pole: Normal, [place]-Rump Length: 0 .50 cm Gestational Sac: Normal [...] (HCC) documented in this encounter Care Teams Produce Clerk Relationship Specialty Start Date End Date Ben Arce M.D. PCP - General Family Medicine 01/13/[address] [place], [place] [phone] documented as of this encounter
--- OUTSIDE RECORDS SUMMARY | 2022-07-17 12:51 | XMS_ITS | Encounter Summary ---
:1990 Author Organization [facility] Address [address] [place] [address] Care Team Providers Name Role Phone Elsewhere, Pcp Primary Care Provider Unavailable Reason for Visit MRI/CAT/PET Scan (Routine) - Closed Specialty Diagnoses / Procedures Referred By Contact Refer red To Contact Radiology Diagnoses Pain Cervical Esther Andrea, WARDROBE TECHNICIAN, [facility] Region Procedures CT Cervical Spine without IV Contrast C.N.P., D.N.P. [address] [place] [phone] Referral ID Status Reason Start Date Expiration Date Visits Requ ested Visits Authorized [id number] Closed 08/01/2019 07/31/2020 1 1 Encounter Details Date Type Department Care Team Description 08/01/2019 Hospital Encounter Department of Radiology Eliazar Andrea britt, in [facility] FATOU, C.N.P., [address] [place], [place] [phone] [place] [phone] [place] [phone] Social History Tobacco Use Types Packs/Day Years [...] do you attend jewish or Never 2021 confucianism services? Do you belong to any clubs or No 11/20/2021 organizations such as jewish groups, unions, fraHylioSoft or athletic groups, or school groups? How [...] at Date Recorded Female 12/02/2021 5:19 PM CONTROL DIRECTOR documented as of this encounter Medications [...] N/A Computed Tomography ARZ LOS, Neuroradiology FLA [facility] Specimen (Source) Anatomical Collection Method Collection [...] on filedocumented in this encounter Care Teams Tallow Refiner Relationship Specialty Start Date End Date Elsewhere, Pcp PCP - General Family Medicine 01/08/18 01/12/21 documented as of this encounter
--- OUTSIDE RECORDS SUMMARY | 2022-07-17 12:51 | XMS_ITS | Encounter Summary ---
:1990 Author Organization [facility] Address [address] [place] [address] Care Team Providers Name Role Phone Ben Arce M.D. Primary Care Provider Reason for Visit Reason Comments Med Refill Naproxen Encounter Details Date Type Department Care Team Description 02/10/2021 Refill Department of Ben Metzger M.D. Med Refill (Naproxen) Medicine in [place] [address] [place], [place] [address] [place] [address] [place] [address] [phone] Social History Tobacco Use Types Packs/Day Years [...] do you attend catholic or Never 2021 islam services? Do you [...] Date Recorded Female 12/02/2021 5:19 PM MANAGER MARKET DEVELOPMENT documented as of this encounter Miscellaneous Notes Telephone Encounter - Kennedi Mckeon, R.M.A. - 02/10/2021 10:12 AM CDT Medication refill Naproxen Last filled 01/13/21 Last OV 01/13/21, 01/07/21 Future appointment None scheduled documented in this encounter Plan of Treatment Not on filedocumented as of this encounter Visit Diagnoses Diagnosis Pain Elbow Left documented in this encounter Care Teams Hairspring Setter Relationship Specialty Start Date End Date Ben Arce M.D. PCP - General Family Medicine 01/13/[address] [place] [address] documented as of this encounter
--- OUTSIDE RECORDS SUMMARY | 2022-07-17 12:51 | XMS_ITS | Encounter Summary ---
:1990 Author Organization [facility] Address [address] [place] [address] Care Team Providers Name Role Phone Elsewhere, Pcp Primary Care Provider Unavailable Reason for Referral Outpatient (Routine) - Canceled Specialty Diagnoses / Procedures Referred By Contact Refer red To Contact Diagnoses Numbness Ben Arce M.D. External, Referring [address] [place] [address] Referral ID Status Reason Start Date Expiration Date Visits V isits Requested Authorized [id number] Canceled No 08/26/2019 08/25/2020 1 1 access/unsa tisfactory access GATION COUNSEL Reason for Visit Reason Onset Date Comments Communication 08/26/2019 Encounter Details Date Type Department Care Team Description 08/26/2019 Clinical Communication Department of Ben Metzger , Communication Medicine in [place] [address] [place] [phone] Social History Tobacco Use Types Packs/Day Years [...] do you attend restorationism or Never 2021 samaritan services? Do you belong to any clubs or No 11/20/2021 organizations such as restorationism groups, unions, fraMetrolight or athletic groups, or school groups? How [...] at Date Recorded Female 12/02/2021 5:19 PM LITIGATION COUNSEL documented as of this encounter Miscellaneous Notes Telephone Encounter - Alexandria Whittington - 08/27/2019 9:52 AM CST I will work on this. GATION COUNSEL Telephone Encounter - Sridhar Espinal - 08/27/2019 8:24 AM CST [place], can you work on this please? Thank you!! GATION COUNSEL Telephone Encounter - Ben Arce M.D. - 08/26/2019 3:36 PM CST External referral order placed. Please help her to find nearby neurology. None in [place], she has travel to [place] or [facility]. Thanks. GATION COUNSEL Telephone Encounter - Nadya Koehler, RMaribellN. - 08/26/2019 12:19 PM LITIGATION COUNSEL Can an outside referral be entered for neurology for sooner appointment? Thank you. GATION COUNSEL Telephone Encounter - Rylie uJárez - 08/26/2019 12:[address] Daiana Booth does not have an opening in [place] until December and [facility]ulu cannot [facility]. Can a referral be placed for a neurologist that is closer? GATION COUNSEL documented in this encounter Plan of Treatment Not on filedocumented as of this encounter Visit Diagnoses Diagnosis Numbness - Primary documented in this encounter Care Teams District Sales Leader Relationship Specialty Start Date End Date Elsewhere, Pcp PCP - General Family Medicine 01/08/18 01/12/21 documented as of this encounter
--- OUTSIDE RECORDS SUMMARY | 2022-07-17 12:51 | XMS_ITS | Encounter Summary ---
:1990 Author Organization [facility] Address [address] [place] [address] Care Team Providers Name Role Phone Elsewhere, Pcp Primary Care Provider Unavailable Reason for Visit Reason Comments Amox Encounter Details Date Type Department Care Team Description 10/05/2020 Clinical Communication Department of Family Aguila Arias M.D. [facility] Medicine in [place] [address] [place], [place] [address] [facility] [address] [place], [place] [phone] (Work) [phone] Social History Tobacco Use Types Packs/Day Years [...] do you attend amish or Never 2021 scientology services? Do you [...] Date Recorded Female 12/02/2021 5:19 PM SYSTEMS SOFTWARE DESIGNER documented as of this encounter Miscellaneous Notes Addendum Note - Aguila Arce M.D. - 10/05/2020 4:11 PM SYSTEMS SOFTWARE DESIGNER Addended by: AGUILA ARCE on: 10/05/2020 04:11 PM Modules accepted: Orders EMS SOFTWARE DESIGNER Addendum Note - Dali Bird R.M.A. - 10/05/2020 4:09 PM SYSTEMS SOFTWARE DESIGNER Addended by: DALI BIRD on: 10/05/2020 04:09 PM Modules accepted: Orders EMS SOFTWARE DESIGNER Telephone Encounter - Dali Bird R.M.A. - 10/05/2020 4:03 PM SYSTEMS SOFTWARE DESIGNER Pt's sister is calling on behalf of sister stating that she is restricted to Dr Arce and needs her amox filled. She saw the dentist today, Dr Kelsea Gamino and he prescribed Amox 500 mg. Take 2 tabs STAT and one tab TID till gone #31. EMS SOFTWARE DESIGNER documented in this encounter Plan of Treatment Not on filedocumented as of this encounter Visit Diagnoses Not on filedocumented in this encounter Care Teams Agricultural Engineering Technologist Relationship Specialty Start Date End Date Elsewhere, Pcp PCP - General Family Medicine 01/08/18 01/12/21 documented as of this encounter
--- OUTSIDE RECORDS SUMMARY | 2022-07-17 12:51 | XMS_ITS | Encounter Summary ---
:1990 Author Organization [facility] Address [address] [place] [address] Care Team Providers Name Role Phone Elsewhere, Pcp Primary Care Provider Unavailable Reason for Visit Reason Comments Wrist Pain 30 y/o f presents with R wri st and hand pain since . Pt says is sharp and radiates up her ar m, no injury, has been taking advil with some relief. Encounter Details Date Type Department Care Team Description 05/30/2020 Emergency [place] Emergency Sigrid Forbes endofrantz Forearm Department D, M.D. (Primary Dx) [address] [facility] [place] [phone] (Wo rk) Social History Tobacco Use Types [...] do you attend samaritan or Never 2021 worship services? Do you [...] Date Recorded Female 12/02/2021 5:19 PM SHOP TECHNICIAN documented as of this encounter Last [...] Body Mass Index 30.81 12/26/2019 9:26 AM SHOP TECHNICIAN documented in this encounter Discharge Instructions [...] clinic by calling the appointment center at [phone]. Thank you for choosing [facility] for your care. It was [...] Forbes M.D. - 05/30/2020 12:11 PM CDT [place] [facility] EMERGENCY DEPARTMENT ENCOUNTER Patient Name: [...] Primary documented in this encounter Care Teams Sales Administrator Relationship Specialty Start Date End Date Elsewhere, Pcp PCP - General Family Medicine 01/08/18 01/12/21 documented as of this encounter
--- OUTSIDE RECORDS SUMMARY | 2022-07-17 12:51 | XMS_ITS | Encounter Summary ---
:1990 Author Organization [facility] Address [address] [place] [address] Care Team Providers Name Role Phone Elsewhere, Pcp Primary Care Provider Unavailable Reason for Visit Reason Comments Vomiting Pt presents w/nausea, vomiti ng and diarrhea onset 2300 yesterday. Encounter Details Date Type Department Care Team Description 11/11/2019 Emergency [place] Emergency Sigrid Forbes ausea And Vomiting (Primary Dx); Department D, M.D. Diarrhea [address] [place] [phone] (Wo rk) Social History Tobacco Use Types [...] do you attend caodaism or Never 2021 confucianist services? Do you [...] at Date Recorded Female 12/02/2021 5:19 PM GRANT ADMINISTRATOR documented as of this encounter Last Filed Vital Signs Vital Sign Reading Time Taken Comments Blood Pressure 112/79 11/11/2019 7:01 AM GRANT ADMINISTRATOR Pulse 81 11/11/2019 7:01 AM GRANT ADMINISTRATOR Temperature 36.4 ??C (97.5 ??F) 11/11/2019 7:01 AM GRANT ADMINISTRATOR Respiratory Rate 16 11/11/2019 7:01 AM GRANT ADMINISTRATOR Oxygen Saturation 93% 11/11/2019 7:01 AM GRANT ADMINISTRATOR Inhaled Oxygen Concentration - - Weight 71.8 kg (158 lb 4.6 oz) 11/11/2019 5:50 AM GRANT ADMINISTRATOR Height 152.4 cm (5') 11/11/2019 5:50 AM GRANT ADMINISTRATOR Body Mass Index 30.91 11/11/2019 5:50 AM GRANT ADMINISTRATOR documented in this encounter Discharge Instructions Discharge InstructionsToSigrid geronimo M.D. - 11/11/2019 6:51 AM GRANT ADMINISTRATOR Return to the Emergency Department/ if he [...] clinic by calling the appointment center at [phone]. Thank you for choosing [facility] for your care. It was a pleasure taking care of you today in our Emergency Department. T ADMINISTRATOR AttachmentsThe following attachments cannot be sent through Care Everywhere. Nausea and Vomiting Adult (Malian)Diarrhea Adult [id number] (Malian) documented in this encounter Medications at Time [...] Forbes M.D. - 11/11/2019 6:16 AM CST [place] [facility] EMERGENCY DEPARTMENT ENCOUNTER Patient Name: Lulu Mata PCP: Primary Care Physician SUBJECTIVE CHIEF COMPLAINT/REASON FOR VISIT Vomiting (Pt presents w/nausea, vomiting and diarrhea onset 2300 yesterday.) HISTORY OF PRESENT ILLNESS Lulu Mata is a 29 y.o. female with a history of asthma presenting with 7 hours of vomiting and diarrhea. She ate dinner at the [employer] last night. Several different types of food [...] felt well before eating dinner at the [employer]. She denies any recentabdominal pain, no prior [...] Forbes M.D. 11/11/19650 Sigrid Forbes M.D. 11/11/19654 T ADMINISTRATOR documented in this encounter Plan of Treatment Not on filedocumented as of this encounter Visit Diagnoses Diagnosis Nausea And Vomiting - Primary Diarrhea documented in this encounter Administered Medications Inactive Administered Medications - up to 3 most recent administrations Medication Order MAR Action Action Date Dose Rate Site ondansetron ODT disintegrating Given 11/11/2019 6:10 AM GRANT ADMINISTRATOR 8 mg tablet 8 mg (ZOFRAN-ODT) 8 mg, oral, Once, On Sun11/11/19 at 0605, For 1 dose, When splitting ODT at bedside, handle with gloves and a pill splitter to prevent moisture contact. documented in this encounter Active and Recently Administered Medications Times are shown in GRANT ADMINISTRATOR. Scheduled Medication Order 11/09/2019 11/10/2019 11/11/2019 ondansetron ODT disintegrating tablet 8 mg (ZOFRAN-ODT) ([facility] ED) 0610 (Given - Provider: Tara Brock R.N.) 8 mg, oral, Once, On Sun11/11/19 at 0605 , For 1 dose, When splitting ODT at bedside, handle with gloves and a pill splitter to prevent moisture contact. documented in this encounter Care Teams Cash Accounting Clerk Relationship Specialty Start Date End Date Elsewhere, Pcp PCP - General Family Medicine 01/08/18 01/12/21 documented as of this encounter
--- OUTSIDE RECORDS SUMMARY | 2022-07-17 12:51 | XMS_ITS | Encounter Summary ---
:1990 Author Organization [facility] Address [address] [place] [address] Care Team Providers Name Role Phone Elsewhere, Pcp Primary Care Provider Unavailable Reason for Visit Reason Comments Arm Injury pt presents with left arm (e lbow area) pain after falling this morning around 0730. Pt fell outside on icy pavement. No other injuries. Pt did work all day at [employer]. Encounter Details Date Type Department Care Team Description 12/14/2020 Emergency [place] [facility]ull M, Inj ury Arm Initial Left Department M.D. (Primary Dx) [address] [place] [phone] Social History Tobacco Use Types Packs/Day Years [...] do you attend episcopal or Never 2021 baptism services? Do you [...] at Date Recorded Female 12/02/2021 5:19 PM SAFETY ADMINISTRATOR documented as of this encounter Last Filed Vital Signs Vital Sign Reading Time Taken Comments Blood Pressure 149/105 12/14/2020 6:00 PM SAFETY ADMINISTRATOR Pulse 68 12/14/2020 6:10 PM SAFETY ADMINISTRATOR Temperature 37.1 ??C (98.8 ??F) 12/14/2020 6:00 PM SAFETY ADMINISTRATOR Respiratory Rate 16 12/14/2020 6:00 PM SAFETY ADMINISTRATOR Oxygen Saturation 97% 12/14/2020 6:10 PM SAFETY ADMINISTRATOR Inhaled Oxygen Concentration - - Weight 71.8 kg (158 lb 4.6 oz) 12/14/2020 5:24 PM SAFETY ADMINISTRATOR Height 152 cm (4' 11.84) 12/14/2020 5:24 PM SAFETY ADMINISTRATOR Body Mass Index 31.08 12/14/2020 5:24 PM SAFETY ADMINISTRATOR documented in this encounter Discharge Instructions AttachmentsThe following attachments cannot be sent through Care Everywhere.RICE Therapy for Routine Care of Injuries [id number]-[id number] (Mongolian)documented in this encounter Medications at Time [...] injuries. Pt did work all day at [employer]. ) HISTORY OF PRESENT ILLNESS 30-year-old female [...] the fall. She went to work at [employer], where she work throughout the day, though [...] Arm Initial Left Bull Calderon M.D. 12/14/201810 TY ADMINISTRATOR documented in this encounter Plan of Treatment Not on filedocumented as of this encounter Procedures Procedure Name Priority Date/Time Associated Comments Diagnosis DX WRIST LEFT 3+ RAD - Semiurgent 12/14/2020 5:57 Resu lts for this VIEWS (Fast; most ED PM SAFETY ADMINISTRATOR procedure are in patients; some the results inpatients) section. DX SHOULDER LEFT RAD - Semiurgent 12/14/2020 5:54 Resu lts for this 2+ VIEWS (Fast; most ED PM SAFETY ADMINISTRATOR procedure are in patients; some the results inpatients) section. DX ELBOW LEFT 3+ RAD - Semiurgent 12/14/2020 5:52 Resu lts for this VIEWS (Fast; most ED PM SAFETY ADMINISTRATOR procedure are in patients; some the results inpatients) section. documented in this encounter Results DX Wrist Left 3+ Views (12/14/2020 5:57 PM SAFETY ADMINISTRATOR) Anatomical Region Laterality Modality Upper Extremity, Wrist, Musculoskeletal RST LOS, Left Digital Radiography Musculoskeletal ARZ LOS, Muskuloskeletal FLA LOS Specimen (Source) Anatomical Collection Method Collection Time Re ceived Time Location / / Volume Laterality 12/14/2020 5:58 PM SAFETY ADMINISTRATOR Impressions 12/14/2020 5:59 PM SAFETY ADMINISTRATOR No acute radiographic abnormalities are demonstrated. Narrative 12/14/2020 5:59 PM SAFETY ADMINISTRATOR EXAM: DX WRIST LEFT 3+ VIEWS COMPARISON: [...] Shoulder Left 2+ Views (12/14/2020 5:54 PM SAFETY ADMINISTRATOR) Anatomical Region Laterality Modality Upper Extremity, Shoulder, Musculoskeletal RST LOS, Left Digital Radiography Musculoskeletal ARZ LOS, Muskuloskeletal FLA LOS Specimen (Source) Anatomical Collection Method Collection Time Re ceived Time Location / / Volume Laterality 12/14/2020 5:57 PM SAFETY ADMINISTRATOR Impressions 12/14/2020 5:58 PM SAFETY ADMINISTRATOR No acute radiographic abnormalities are demonstrated. Narrative 12/14/2020 5:58 PM SAFETY ADMINISTRATOR EXAM: DX SHOULDER LEFT 2+ VIEWS COMPARISON: [...] Elbow Left 3+ Views (12/14/2020 5:52 PM SAFETY ADMINISTRATOR) Anatomical Region Laterality Modality Upper Extremity, Elbow, Musculoskeletal RST LOS, Left Digital Radiography Musculoskeletal ARZ LOS, Muskuloskeletal FLA LOS Specimen (Source) Anatomical Collection Method Collection Time Re ceived Time Location / / Volume Laterality 12/14/2020 5:56 PM SAFETY ADMINISTRATOR Impressions 12/14/2020 5:57 PM SAFETY ADMINISTRATOR No acute radiographic abnormalities are demonstrated. Narrative 12/14/2020 5:57 PM SAFETY ADMINISTRATOR EXAM: DX ELBOW LEFT 3+ VIEWS COMPARISON: [...] tablet 1,000 mg Given 12/14/2020 5:28 PM SAFETY ADMINISTRATOR 1,000 mg (TYLENOL) 1,000 mg, oral, Once, On Sun12/14/20 at 1721, For 1 dose documented in this encounter Active and Recently Administered Medications Times are shown in SAFETY ADMINISTRATOR. Scheduled Medication Order 12/12/2020 12/13/2020 12/14/2020 acetaminophen tablet 1,000 mg (TYLENOL) (COMPLETED) 1728 (Given - Provider: Nita Maira, R.N.) 1,000 mg, oral, Once, On Sun12/14/20 at 1721, For 1 dose documented in this encounter Care Teams Spudder Relationship Specialty Start Date End Date Elsewhere, Pcp PCP - General Family Medicine 01/08/18 01/12/21 documented as of this encounter
--- OUTSIDE RECORDS SUMMARY | 2022-07-17 12:51 | XMS_ITS | Encounter Summary ---
:1990 Author Organization [facility] Address [address] [place] [address] Care Team Providers Name Role Phone Ben [...] Type Department Care Team Description 03/01/2021 Emergency [place] Emergency [place] Contu sion Head Initial (Primary Dx); Department [place] Strain Neck Initial [address] [place] [phone] Social History Tobacco Use Types Packs/Day Years [...] do you attend temple or Never 2021 christian services? Do you [...] at Date Recorded Female 12/02/2021 5:19 PM MINER documented as of this encounter Last Filed [...] through Care Everywhere. Facial or Scalp Contusion (Greenlandic)documented in this encounter Medications at Time [...] ondansetron ODT disintegrating tablet 4 mg (ZOFRAN-ODT) ([facility]) 1101 (Given - Provider: Nita Rao R.N.) 4 mg, oral, Once, On Sun03/01/21 at 1058 , For 1 dose, When splitting ODT at bedside, handle with gloves and a pill splitter to prevent moisture contact. documented in this encounter Care Teams Machine Brusher Relationship Specialty Start Date End Date Ben Arce M.D. PCP - General Family Medicine 01/13/[address] [place] [phone] documented as of this encounter
--- OUTSIDE RECORDS SUMMARY | 2022-07-17 12:51 | XMS_ITS | Encounter Summary ---
:1990 Author Organization [facility] Address [address] [place] [address] Care Team Providers Name Role Phone Elsewhere, Pcp Primary Care Provider Unavailable Reason for Visit Reason Comments Facial Pain Pt presents for eval of sinu s pain, congestion, throat pain and claire ear pain. sick for 3 1/2 weeks . No known fever. Using OTC sudafed and afrin without relief. Encounter Details Date Type Department Care Team Description 09/09/2019 Emergency [place] Emergency Sigrid Forbes (Primary Dx); Department D, M.D. Infection Upper Respiratory Viral [address] [place] [facility] [phone] [phone] (Wo rk) Social History Tobacco Use Types [...] do you attend taoism or Never 2021 yazdanism services? Do you [...] at Date Recorded Female 12/02/2021 5:19 PM CATTLE INSPECTOR documented as of this encounter Last Filed Vital Signs Vital Sign Reading Time Taken Comments Blood Pressure 135/101 09/09/2019 9:30 AM CATTLE INSPECTOR Pulse 75 09/09/2019 9:30 AM CATTLE INSPECTOR Temperature 36 ??C (96.8 ??F) 09/09/2019 9:30 AM CATTLE INSPECTOR Respiratory Rate 18 09/09/2019 9:30 AM CATTLE INSPECTOR Oxygen Saturation 96% 09/09/2019 9:30 AM CATTLE INSPECTOR Inhaled Oxygen Concentration - - Weight 72.6 kg (160 lb) 09/09/2019 9:39 AM CATTLE INSPECTOR Height 152.4 cm (5') 09/09/2019 9:39 AM CATTLE INSPECTOR Body Mass Index 31.25 09/09/2019 9:39 AM CATTLE INSPECTOR documented in this encounter Discharge Instructions Discharge InstructionsTomSigrid remy M.D. - 09/09/2019 9:41 AM CATTLE INSPECTOR Return to the Emergency Department if you [...] clinic by calling the appointment center at [phone]. Thank you for choosing [facility] for your care. It was a pleasure taking care of you today in our Emergency Department. LE INSPECTOR AttachmentsThe following attachments cannot be sent through Care Everywhere. Sinus Rinse Xpai-hi-Btda (Polish)Sinusitis Adult Tdsy-fh-Zthf (Polish) documented in this encounter Medications at Time [...] Forbes M.D. 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 09/09/19946 LE INSPECTOR documented in this encounter Plan of Treatment Not on filedocumented as of this encounter Visit Diagnoses Diagnosis Sinusitis - Primary Infection Upper Respiratory Viral documented in this encounter Care Teams Therapy Teacher Relationship Specialty Start Date End Date Elsewhere, Pcp PCP - General Family Medicine 01/08/18 01/12/21 documented as of this encounter
--- OUTSIDE RECORDS SUMMARY | 2022-07-17 12:51 | XMS_ITS | Encounter Summary ---
:1990 Author Organization [facility] Address [address] [place] [address] Care Team Providers Name Role Phone Elsewhere, Pcp Primary Care Provider Unavailable Reason for Referral MRI/CAT/PET Scan (Routine) - Closed Specialty Diagnoses / Procedures Referred By Contact Refer red To Contact Radiology Diagnoses Pain Cervical Esther Andrea APRN, [facility] Region Procedures CT Thoracic Spine without IV Contrast C.N.P., D.N.P. [address] [place] [address] Referral ID Status Reason Start Date Expiration Date Visits Requ ested Visits Authorized [id number] Closed 08/01/2019 07/31/2020 1 1 Reason for Visit MRI/CAT/PET Scan (Routine) - Closed Specialty Diagnoses / Procedures Referred By Contact Refer red To Contact Radiology Diagnoses Pain Cervical Emre, FATOU Santana, [facility] Region Procedures CT Thoracic Spine without IV Contrast C.N.P., D.N.P. [address] [place] [address] Referral ID Status Reason Start Date Expiration Date Visits Requ ested Visits Authorized [id number] Closed 08/01/2019 07/31/2020 1 1 Encounter Details Date Type Department Care Team Description 08/01/2019 Hospital Encounter Department of Radiology Eliazar Andrea, Pain Cervical in [place] APRN C.N.P., [address] [facility] D.N.P. [place], [place] [address] [place] [address] [place], [place] [phone] [phone] Social History Tobacco Use Types Packs/Day [...] do you attend islam or Never 2021 oriental orthodox services? Do [...] at Date Recorded Female 12/02/2021 5:[address] TECHNICIAN documented as of this encounter Medications [...] Cervical documented in this encounter Care Teams Asset Protection Assistant Relationship Specialty Start Date End Date Elsewhere, Pcp PCP - General Family Medicine 01/08/18 01/12/21 documented as of this encounter
--- OUTSIDE RECORDS SUMMARY | 2022-07-17 12:51 | XMS_ITS | Encounter Summary ---
:1990 Author Organization [facility] Address [address] [place] [address] Care Team Providers Name Role Phone Ben Arce M.D. Primary Care Provider Encounter Details Date Type Department Care Team Description 01/21/2021 Orders Only [facility] PCP TH Teja Zuniga Jr., M.D. [address] [place] [address] [place] [id number] (Wo rk) Social History Tobacco [...] do you attend taoism or Never 2021 congregation services? Do you [...] Date Recorded Female 12/02/2021 5:19 PM SUPERVISOR FINE GRADING documented as of this encounter Plan of Treatment Not on filedocumented as of this encounter Visit Diagnoses Not on filedocumented in this encounter Care Teams Advanced Practice Professional Relationship Specialty Start Date End Date Ben Arce M.D. PCP - General Family Medicine 01/13/[address] [place] [id number] documented as of this encounter
--- OUTSIDE RECORDS SUMMARY | 2022-07-17 12:51 | XMS_ITS | Encounter Summary ---
:1990 Author Organization [facility] Address [address] [place] [address] Care Team Providers Name Role Phone Elsewhere, Pcp Primary Care Provider Unavailable Reason for Visit Reason Comments Hand Injury pt presents with injury to l eft hand, pt states she was holding onto a door knob yesterday at work when someone pushed the door open and smashed her hand Swelling noted. Encounter Details Date Type Department Care Team Description 12/26/2019 Emergency [place] Emergency Sigrid Forbes ontusion Hand Initial Department Minoo Cervantes Left (Primary Dx) [address] [facility] [place] [address] [phone] (Wo rk) Social History Tobacco Use Types [...] do you attend confucianist or Never 2021 lutheran services? Do you [...] at Date Recorded Female 12/02/2021 5:19 PM DIPPER AND BAKER documented as of this encounter Last Filed Vital Signs Vital Sign Reading Time Taken Comments Blood Pressure 128/90 12/26/2019 10:18 AM DIPPER AND BAKER Pulse 78 12/26/2019 10:18 AM DIPPER AND BAKER Temperature 37 ??C (98.6 ??F) 12/26/2019 10:18 AM DIPPER AND BAKER Respiratory Rate 16 12/26/2019 10:18 AM DIPPER AND BAKER Oxygen Saturation 100% 12/26/2019 10:18 AM DIPPER AND BAKER Inhaled Oxygen Concentration - - Weight 70.8 kg (156 lb 1.4 oz) 12/26/2019 9:26 AM DIPPER AND BAKER Height 155 cm (5' 1.02) 12/26/2019 9:26 AM DIPPER AND BAKER Body Mass Index 29.47 12/26/2019 9:26 AM DIPPER AND BAKER documented in this encounter Discharge Instructions Discharge InstructionsToSigrid geronimo M.D. - 12/26/2019 9:47 AM DIPPER AND BAKER Return to the Emergency Department with any [...] clinic by calling the appointment center at [phone]. Thank you for choosing [facility] for your care. It was a pleasure taking care of you today in our Emergency Department. ER AND BAKER documented in this encounter Medications at Time [...] Forbes M.D. - 12/26/2019 9:37 AM CST [facility] EMERGENCY DEPARTMENT ENCOUNTER Patient Name: [...] AM Sigrid Forbes M.D. 12/26/19 1052 ER AND BAKER documented in this encounter Plan of Treatment Not on filedocumented as of this encounter Procedures Procedure Name Priority Date/Time Associated Comments Diagnosis DX HAND LEFT 3 RAD - Semiurgent 12/26/2019 9:39 Result s for this VIEWS (Fast; most ED AM DIPPER AND BAKER procedure are in patients; some the results inpatients) section. documented in this encounter Results DX Hand Left 3 Views (12/26/2019 9:39 AM DIPPER AND BAKER) Anatomical Region Laterality Modality Upper Extremity, Hand, Musculoskeletal RST LOS, Left Digital Radiography Musculoskeletal ARZ LOS, Muskuloskeletal FLA LOS Specimen (Source) Anatomical Collection Method Collection Time Re ceived Time Location / / Volume Laterality 12/26/2019 9:40 AM DIPPER AND BAKER Impressions 12/26/2019 9:41 AM DIPPER AND BAKER No acute radiographic abnormalities are demonstrated. Narrative 12/26/2019 9:41 AM DIPPER AND BAKER EXAM: DX HAND LEFT 3 VIEWS COMPARISON: [...] Primary documented in this encounter Care Teams Box Toe Cementer Relationship Specialty Start Date End Date Elsewhere, Pcp PCP - General Family Medicine 01/08/18 01/12/21 documented as of this encounter
--- OUTSIDE RECORDS SUMMARY | 2022-07-17 12:51 | XMS_ITS | Encounter Summary ---
:1990 Author Organization [facility] Address [address] [place] [address] Care Team Providers Name Role Phone Elsewhere, Pcp Primary Care Provider Unavailable Reason for Referral Physical Therapy (Routine) - Denied Specialty Diagnoses / Procedures Referred By Contact Refer red To Contact Diagnoses Tendonitis Loulou Teresa APRN, [facility] Procedures PT Evaluate and treat C.N.P. [address] [place] [address] Referral ID Status Reason Start Date Expiration Date Visits Requ ested Visits Authorized [id number] Denied 06/08/2020 10/21/2020 1 0 Reason for Visit Reason Comments Post Ed Visit Follow-up Encounter Details Date Type Department Care Team Description 06/08/2020 Office Visit Department of [facility] Loulou Teresa Te ndonitis (Primary Medicine in [facility] LITIGATION EXAMINER, C.N.P. Dx) [place], [place] [address] [place] [phone] Social History Tobacco Use Types Packs/Day Years [...] do you attend amish or Never 2021 hinduism services? Do you [...] Date Recorded Female 12/02/2021 5:19 PM SOLUTIONS EXECUTIVE CLOUD SALES documented as of this encounter Last [...] Primary documented in this encounter Care Teams General Foundry Worker Relationship Specialty Start Date End Date Elsewhere, Pcp PCP - General Family Medicine 01/08/18 01/12/21 documented as of this encounter
--- OUTSIDE RECORDS SUMMARY | 2022-07-17 12:51 | XMS_ITS | Encounter Summary ---
:1990 Author Organization [facility] Address [address] [place] [address] Care Team Providers Name Role Phone Elsewhere, Pcp Primary Care Provider Unavailable Reason for Visit Reason Comments Sinusitis Encounter Details Date Type Department Care Team Description 01/10/2020 Office Visit Urgent Care, [facility], Sin usitis Acute [place], in [place], FATOU, C.N.P., (Samina pendleton Dx) [place] D.N.P. [address] [place] [address] [phone] Social History Tobacco Use Types Packs/Day Years [...] do you attend shinto or Never 2021 temple services? Do you [...] Date Recorded Female 12/02/2021 5:19 PM LIBRARY SERVICES ASSISTANT documented as of this encounter Last [...] Body Mass Index 30.4 12/26/2019 9:26 AM LIBRARY SERVICES ASSISTANT documented in this encounter Patient Instructions Patient [...] bacteria. Still, most people seen in the [facility] for upper respiratory infectionor sinusitis symptoms are [...] and replace them as recommended by the customs officer. Note: Having your humidity too high [...] help open sinuses and allow easier breathing. Yarg-jaq-cgvzxld treatments* In addition to the previous suggestions, you may get relief for nasal and sinus obstruction or discomfort by taking non-prescription, ixvh-vvs-elfjdxs (OTC) medications. Many OTC medications combine a [...] Center, [place] [facility] ([facility]). All rights reserved. [id number] documented in this encounter Progress Notes Esther [...] Primary documented in this encounter Care Teams Courier Delivery Driver Relationship Specialty Start Date End Date Elsewhere, Pcp PCP - General Family Medicine 01/08/18 01/12/21 documented as of this encounter
--- OUTSIDE RECORDS SUMMARY | 2022-07-17 12:51 | XMS_ITS | Encounter Summary ---
:1990 Author Organization [facility] Address [address] [place] [address] Care Team Providers Name Role Phone Elsewhere, Pcp Primary Care Provider Unavailable Reason for Referral Outpatient (Routine) - Closed Specialty Diagnoses / Procedures Referred By Contact Refer red To Contact Neurology Diagnoses Contusion Leg Initial Left Numbness Ben Arce M.D. [facility] Region [address] [place] [address] Referral ID Status Reason Start Date Expiration Date Visits V isits Requested Authorized [id number] Closed Specialty 08/11/2019 08/10/2020 1 1 Services Required Reason for Visit Reason Comments Follow-up ED 08/01 [facility] Outpatient (Routine) - Closed Specialty Diagnoses / Procedures Referred By Contact Refer red To Contact Emergency Medicine Diagnoses Pain Neck Strain Neck Initial Contusion Leg Initial Left Derrek Leon M.D. [facility] Region [facility] [place] [address] Referral ID Status Reason Start Date Expiration Date Visits Requ ested Visits Authorized [id number] Closed 08/01/2019 07/31/2020 1 1 Encounter Details Date Type Department Care Team Description 08/11/2019 Office Visit Department of Ben Metzger M.D. Pain Neck (Primary Dx); Medicine in [facility] [address] Strain Neck Initial; [place], [place] Contusion Leg Initial Left; [address] [place] [address] Numbness [place], [place] [phone] (Work) [phone] Social History Tobacco Use Types Packs/Day Years [...] do you attend mu-ism or Never 2021 quaker services? Do you [...] at Date Recorded Female 12/02/2021 5:19 PM ECHO VASC TECH documented as of this encounter Last [...] Numbness documented in this encounter Care Teams Shaper Operator Relationship Specialty Start Date End Date Elsewhere, Pcp PCP - General Family Medicine 01/08/18 01/12/21 documented as of this encounter
--- OUTSIDE RECORDS SUMMARY | 2022-07-17 12:51 | XMS_ITS | Encounter Summary ---
:1990 Author Organization [facility] Address [address] [place] [address] Care Team Providers Name Role Phone Elsewhere, Pcp Primary Care Provider Unavailable Encounter Details Date Type Department Care Team Description 01/07/2021 Hospital Encounter Department of Renae, Zack Hammer, Pain Elbow Left Radiology, [facility], in [place] [address] [place], [place] [address] [place] [address] [place], [place] [phone] (Work) [phone] Social History Tobacco Use Types Packs/Day Years [...] do you attend samaritan or Never 2021 methodist services? Do you [...] Date Recorded Female 12/02/2021 5:19 PM SENIOR MANUFACTURING ENGINEER documented as of this encounter Medications [...] Left documented in this encounter Care Teams Retail Advertising Account Executive Relationship Specialty Start Date End Date Elsewhere, Pcp PCP - General Family Medicine 01/08/18 01/12/21 documented as of this encounter
--- OUTSIDE RECORDS SUMMARY | 2022-07-17 12:51 | XMS_ITS | Encounter Summary ---
:1990 Author Organization [facility] Address [address] [place] [address] Care Team Providers Name Role Phone Elsewhere, Pcp Primary Care Provider Unavailable Reason for Referral Outpatient (Routine) - Closed Specialty Diagnoses / Procedures Referred By Contact Refer red To Contact Diagnoses [facility] Ben Arce M.D. [address] [place] [address] Referral ID Status Reason Start Date Expiration Visits Visits Date Requested Authorized [id number] Closed Continuity of 10/06/2020 10/06/2021 1 1 Care CREAM DISPENSER Reason for Visit Reason Comments Communication referral Encounter Details Date Type Department Care Team Description 10/06/2020 Clinical Communication Department of Ben Arce Comm unication Family Medicine in [place] (referral ) [place] [address] [facility] [address] [facility] [phone] Social History Tobacco Use Types Packs/Day Years [...] do you attend hinduism or Never 2021 zoroastrianism services? Do you [...] Recorded Female 12/02/2021 5:19 PM ICE CREAM DISPENSER documented as of this encounter Miscellaneous Notes Telephone Encounter - Wilma Montelongo R.N. - 10/06/2020 4:17 PM CST Pt advised that referral was faxed to [facility]: [phone] CREAM DISPENSER Telephone Encounter - Ben Arce M.D. - 10/06/2020 2:55 PM CST External referral order placed. Please fax for patient. Thanks. It should be printed in the office printer. Thanks. CREAM DISPENSER Telephone Encounter - Ilene Gautam - 10/06/2020 [...] to send referral for her to see [facility] Dentist in [place]. She is on a restricted program through insurance and they will only cover this if referred by Dr. Arce. She is having a tooth pulled on Sunday. Please fax to fax #[phone]. Please call her to let her know if this is done. Thank you. I will send this information to the appropriate staff member who will look into your concern. Is there anything else I can help you with today? Thank you for calling [facility]. CREAM DISPENSER documented in this encounter Plan of Treatment Not on filedocumented as of this encounter Visit Diagnoses Diagnosis [facility] - Primary documented in this encounter Care Teams Roller Varnisher Relationship Specialty Start Date End Date Elsewhere, Pcp PCP - General Family Medicine 01/08/18 01/12/21 documented as of this encounter
--- OUTSIDE RECORDS SUMMARY | 2022-07-17 12:51 | XMS_ITS | Encounter Summary ---
:1990 Author Organization [facility] Address [address] [place] [address] Care Team Providers Name Role Phone Elsewhere, Pcp Primary Care Provider Unavailable Reason for Visit Physical Therapy (Routine) - Denied Specialty Diagnoses / Procedures Referred By Contact Refer red To Contact Diagnoses Tendonitis Loulou Teresa APRN, [facility] Procedures PT Evaluate and treat C.N.P. [address] [place] [address] Referral ID Status Reason Start Date Expiration Date Visits Requ ested Visits Authorized [id number] Denied 06/08/2020 10/21/2020 1 0 Encounter Details Date Type Department Care Team Description 06/30/2020 Comprehensive Visit Department of Physical Loulou Metz APRN, C.N.P. [address] [place] [phone] Tendonitis Elbow (Primary Dx); Medicine and Yunior Robins P.TMaribell [address] [place] [phone] Tendonitis Rehabilitation in [place], [place] [address] [place] [phone] Social History Tobacco Use Types Packs/Day Years [...] do you attend catholic or Never 2021 voodoo services? Do you belong to any clubs or No 11/20/2021 organizations such as catholic groups, unions, [employer] or athletic groups, or school groups? How [...] Date Recorded Female 12/02/2021 5:19 PM SCHOOL FUNDRAISING DIRECTOR documented as of this encounter Consult Notes [...] extremity pain/tendinitis Onset Date: 06/08/20 Payor: [facility] [place] CARE / Plan: [facility] CARE RESTRICTED PLAN / Product Type: Medicaid HMO / [facility] Visit Count: 1 PERTINENT MEDICAL [...] Patient works 40 hours at the local [employer]. Patient has a 7-1/2-year-old son. 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 Patient works the [...] of Physical Medicine and Rehabilitation in [address] [address] Dept: [phone] OL FUNDRAISING DIRECTOR documented in this encounter Plan of Treatment Not on filedocumented as of this encounter Visit Diagnoses Diagnosis Tendonitis Elbow - Primary Tendonitis documented in this encounter Care Teams Continuity Clerk Relationship Specialty Start Date End Date Elsewhere, Pcp PCP - General Family Medicine 01/08/18 01/12/21 documented as of this encounter
--- OUTSIDE RECORDS SUMMARY | 2022-07-17 12:51 | XMS_ITS | Encounter Summary ---
:1990 Author Organization [facility] Address [address] [place] [address] Care Team Providers Name Role Phone Elsewhere, Pcp Primary Care Provider Unavailable Reason for Visit Reason Comments Earache Encounter Details Date Type Department Care Team Description 01/02/2021 Nurse Triage Department of [facility] Angella Herbert, Ear ache Medicine in [place], M.S.N., R.N. [place] [address] [place] [address] 1976 Social History Tobacco Use Types Packs/Day [...] you attend oriental orthodox or Never 2021 taoism services? Do you [...] at Date Recorded Female 12/02/2021 5:19 PM MAILMASTER documented as of this encounter Miscellaneous Notes [...] medication (e.g., ibuprofen or acetaminophen) Protocols used: [id number] Care Advice Patient/Caregiver understands and will follow care advice?: Yes, able to teach back SEE PCP WITHIN 4 HOURS (OR PCP TRIAGE): * IF OFFICE WILL BE OPEN: You need to be seen within the next 3 or 4 hours. Call your doctor (or SAMPLE PULLER/PA) now or as soon as the office [...] need to be seen. Your doctor (or SAMPLE PULLER/PA) will want to talk with you to [...] on filedocumented in this encounter Care Teams Safety Council Director Relationship Specialty Start Date End Date Elsewhere, Pcp PCP - General Family Medicine 01/08/18 01/12/21 documented as of this encounter
--- OUTSIDE RECORDS SUMMARY | 2022-07-17 12:51 | XMS_ITS | Encounter Summary ---
:1990 Author Organization [facility] Address [address] [place] [address] Care Team Providers Name Role Phone Elsewhere, Pcp Primary Care Provider Unavailable Reason for Referral Outpatient (Routine) - Closed Specialty Diagnoses / Procedures Referred By Contact Refer red To Contact Emergency Medicine Diagnoses Pain Neck Strain Neck Initial Contusion Leg Initial Left Derrek Leon M.D. [facility] Region [address] [place] [address] Referral ID Status Reason Start Date Expiration Date Visits Requ ested Visits Authorized [id number] Closed 08/01/2019 07/31/2020 1 1 Reason for Visit Reason Comments Neck Pain Pt presents from Urgent care for evaluation of neck pain and tingling of left leg. Encounter Details Date Type Department Care Team Description 08/01/2019 Emergency [place] Emergency Derrek Leon Pa in Neck (Primary Dx); Department M.[place]aribell Strain Neck Initial; [address] [facility] [address] [facility] Contusion Leg Initial Left; [place], [place] Paresthesias Feet [phone] Social History Tobacco Use Types Packs/Day [...] do you attend jain or Never 2021 hinduism services? Do you [...] at Date Recorded Female 12/02/2021 5:19 PM HOST/HOSTESS GROUND documented as of this encounter Last Filed [...] be sent through Care Everywhere. Muscle Strain (Pakistani)Cervical Sprain (Pakistani)Contusion (Pakistani)documented in this encounter Medications at Time of [...] Feet documented in this encounter Care Teams Front Office Spec Relationship Specialty Start Date End Date Elsewhere, Pcp PCP - General Family Medicine 01/08/18 01/12/21 documented as of this encounter
--- OUTSIDE RECORDS SUMMARY | 2022-07-17 12:51 | XMS_ITS | Encounter Summary ---
:1990 Author Organization [facility] Address [address] [place] [address] Care Team Providers Name Role Phone Elsewhere, Pcp Primary Care Provider Unavailable Reason for Visit Reason Comments Pain In Limb Follow up on left elbow Outpatient (Routine) - Closed Specialty Diagnoses / Procedures Referred By Contact Refer red To Contact Family Medicine Zack Macdonald M.D. [facility] Region [address] [place] [address] Referral ID Status Reason Start Date Expiration Date Visits Requ ested Visits Authorized [id number] Closed 12/16/2020 12/16/2021 1 1 Encounter Details Date Type Department Care Team Description 12/24/2020 Office Visit Department of Donya Fitzgerald Pain Elbow Left Medicine in [facility], FATOU, C.N.P., (Primary Dx) [place], [place] D.N.P. [address] [place] [phone] Social History Tobacco Use Types Packs/Day Years [...] do you attend sikh or Never 2021 hindu services? Do you [...] Date Recorded Female 12/02/2021 5:19 PM ASSEMBLER LATCHES AND SPRINGS documented as of this encounter Last Filed Vital Signs Vital Sign Reading Time Taken Comments Blood Pressure 128/80 12/24/2020 3:26 PM ASSEMBLER LATCHES AND SPRINGS Pulse 80 12/24/2020 3:26 PM ASSEMBLER LATCHES AND SPRINGS Temperature 36.4 ??C (97.5 ??F) 12/24/2020 3:26 PM ASSEMBLER LATCHES AND SPRINGS Respiratory Rate - - Oxygen Saturation 97% 12/24/2020 3:26 PM ASSEMBLER LATCHES AND SPRINGS Inhaled Oxygen Concentration - - Weight 72.1 kg (158 lb 15.2 oz) 12/24/2020 3:26 PM ASSEMBLER LATCHES AND SPRINGS Height - - Body Mass Index 31.21 12/14/2020 5:24 PM ASSEMBLER LATCHES AND SPRINGS documented in this encounter Progress Notes Donya [...] plan of care. Donya Lind, MIGUELANGEL, DNP MBLER LATCHES AND SPRINGS documented in this encounter Plan of Treatment Not on filedocumented as of this encounter Visit Diagnoses Diagnosis Pain Elbow Left - Primary documented in this encounter Care Teams Concrete Rubber Relationship Specialty Start Date End Date Elsewhere, Pcp PCP - General Family Medicine 01/08/18 01/12/21 documented as of this encounter
--- OUTSIDE RECORDS SUMMARY | 2022-07-17 12:51 | XMS_ITS | Encounter Summary ---
:1990 Author Organization [facility] Address [address] [place] [address] Care Team Providers Name Role Phone Elsewhere, Pcp Primary Care Provider Unavailable Encounter Details Date Type Department Care Team Description 01/07/2021 Clinical Communication Department of [facility] Donya Lind [facility] in [facility], C.N.P.[place], [place] D.N.P. [address] [place] [phone] Social History Tobacco Use Types Packs/Day Years [...] do you attend jainism or Never 2021 sabianism services? Do you [...] at Date Recorded Female 12/02/2021 5:19 PM TYPE MAPPER documented as of this encounter Miscellaneous Notes [...] patient Please call [place] before patient arrives... [phone] documented in this encounter Plan of Treatment Not on filedocumented as of this encounter Visit Diagnoses Not on filedocumented in this encounter Care Teams Etcher Hand Relationship Specialty Start Date End Date Elsewhere, Pcp PCP - General Family Medicine 01/08/18 01/12/21 documented as of this encounter
--- OUTSIDE RECORDS SUMMARY | 2022-07-17 12:51 | XMS_ITS | Encounter Summary ---
:1990 Author Organization [facility] Address [address] [place] [address] Care Team Providers Name Role Phone Ben Arce M.D. Primary Care Provider Reason for Visit Reason Comments Med Refill Encounter Details Date Type Department Care Team Description 03/16/2021 Refill Department of Family Medicine Ben Maynard M.D. Med Refill in [facility] [address] [place] [phone] (Wo rk) Social History Tobacco Use Types [...] do you attend baptism or Never 2021 tenriism services? Do you [...] Date Recorded Female 12/02/2021 5:19 PM TRACK SUPERVISOR documented as of this encounter Miscellaneous Notes Telephone Encounter - Celina Goyal RMaribellN. - 03/16/2021 11:58 AM CDT Refills must come from Dr Arce due to a Restricted program Unable to refill per protocol: Name of Medications Needing Refill: Naproxen Last Refill Date: 02/10/21 [id number], 0 refills Last / Future Appointment: 01/13/21 documented in this encounter Plan of Treatment Not on filedocumented as of this encounter Visit Diagnoses Diagnosis Pain Elbow Left documented in this encounter Care Teams Professional Services Manager Relationship Specialty Start Date End Date Ben Arce M.D. PCP - General Family Medicine 01/13/[address] [place] [address] documented as of this encounter
--- OUTSIDE RECORDS SUMMARY | 2022-07-17 12:51 | XMS_ITS | Encounter Summary ---
:1990 Author Organization [facility] Address [address] [place] [address] Care Team Providers Name Role Phone Elsewhere, Pcp Primary Care Provider Unavailable Reason for Referral Outpatient (Routine) - Closed Specialty Diagnoses / Procedures Referred By Contact Refer red To Contact Family Medicine Zack Macdonald M.D. [facility] Region [address] [place] [address] Referral ID Status Reason Start Date Expiration Date Visits Requ ested Visits Authorized [id number] Closed 12/16/2020 12/16/2021 1 1 SITE MANAGER Reason for Visit Reason Comments Follow-up arm injury Encounter Details Date Type Department Care Team Description 12/16/2020 Office Visit Department of Family Zack Macdonald, Pain Elbow Left Medicine in Jaswinder Hennessy (Primary Dx) [place], [place] [address] [place] [phone] Social History Tobacco Use Types Packs/Day Years [...] do you attend cheondoism or Never 2021 baptism services? Do you belong to any clubs or No 11/20/2021 organizations such as cheondoism groups, unions, fraCognea or athletic groups, or school groups? How [...] at Date Recorded Female 12/02/2021 5:19 PM WEB SITE MANAGER documented as of this encounter Last Filed Vital Signs Vital Sign Reading Time Taken Comments Blood Pressure 126/92 12/16/2020 3:16 PM WEB SITE MANAGER Pulse 78 12/16/2020 3:11 PM WEB SITE MANAGER Temperature 36.2 ??C (97.2 ??F) 12/16/2020 3:11 PM WEB SITE MANAGER Respiratory Rate - - Oxygen Saturation 97% 12/16/2020 3:11 PM WEB SITE MANAGER Inhaled Oxygen Concentration - - Weight 72.1 kg (158 lb 14.4 oz) 12/16/2020 3:11 PM WEB SITE MANAGER Height - - Body Mass Index 31.2 12/14/2020 5:24 PM WEB SITE MANAGER documented in this encounter Patient Instructions Patient InstructionsZack Macdonald M.D. - 12/16/2020 3:30 PM CST 1. Make an appointment in 3 weeks for follow-up. 2. Sling as needed for comfort. 3. Continue to work on range of motion with the shoulder and elbow. 4. Tylenol or ibuprofen as needed for discomfort. SITE MANAGER documented in this encounter Progress Notes Zack [...] Tylenol or ibuprofen as needed for discomfort. SITE MANAGER documented in this encounter Plan of [...] Left documented in this encounter Care Teams College Service Officer Relationship Specialty Start Date End Date Elsewhere, Pcp PCP - General Family Medicine 01/08/18 01/12/21 documented as of this encounter
--- OUTSIDE RECORDS SUMMARY | 2022-07-17 12:51 | XMS_ITS | Encounter Summary ---
:1990 Author Organization [facility] Address [address] [place] [address] Care Team Providers Name Role Phone Elsewhere, Pcp Primary Care Provider Unavailable Reason for Referral Outpatient (Routine) - Closed Specialty Diagnoses / Procedures Referred By Contact Refer red To Contact Family Medicine Donya Lind APRN, [facility] C.N.P., D.N.P. Referral ID Status Reason Start Date Expiration Date Visits Requ ested Visits Authorized [id number] Closed 01/07/2021 01/07/2022 1 1 Reason for Visit Reason Comments Follow-up Follow up Elbow Encounter Details Date Type Department Care Team Description 01/07/2021 Office Visit Department of Donya Fitzgerald Pain Elbow Left (Primary Dx); Medicine in [facility] FATOU Lu C.N.PMaribell, Rhinitis Allergic [place], [place] D.N.P. [address] [place] [address] Social History Tobacco Use Types Packs/Day Years [...] at Date Recorded Female 12/02/2021 5:19 PM CRIMINOLOGY PROFESSOR documented as of this encounter Last [...] Body Mass Index 31.21 12/14/2020 5:24 PM CRIMINOLOGY PROFESSOR documented in this encounter Progress Notes Donya [...] meds for pain management. She works at [employer] and has continued to wear sling at [...] plan of care as outlined. Donya Lind, RIG OPERATOR, DNP documented in this encounter Plan of Treatment Scheduled Referrals Name Type Priority Associated Diagnoses Order S [facility] Family Medicine Outpatient Referral Routine Expec taurus: office visit 02/07/2021 (clinic) (Approximate), Expires: 01/08/2024 documented as of this encounter Visit Diagnoses Diagnosis Pain Elbow Left - Primary Rhinitis Allergic documented in this encounter Care Teams Claims Agent Right Of Way Relationship Specialty Start Date End Date Elsewhere, Pcp PCP - General Family Medicine 01/08/18 01/12/21 documented as of this encounter
--- OUTSIDE RECORDS SUMMARY | 2022-07-17 12:51 | XMS_ITS | Encounter Summary ---
:1990 Author Organization [facility] Address [address] [place] [address] Care Team Providers Name Role Phone Elsewhere, Pcp Primary Care Provider Unavailable Reason for Visit Reason Comments Sinus Symptoms ongoing Encounter Details Date Type Department Care Team Description 07/02/2020 Office Visit Urgent Care, [facility], Sin usitis Acute [place], in [place], FATOU, C.N.P., (Samina pendleton Dx) [place] D.N.P. [address] [place] [phone] Social History Tobacco Use Types Packs/Day Years [...] do you attend judaism or Never 2021 samaritan services? Do you [...] ANALYTICAL SAMPLER documented as of this encounter Last Filed [...] bacteria. Still, most people seen in the [facility] for upper respiratory infectionor sinusitis symptoms are [...] and replace them as recommended by the animal physiology teacher. Note: Having your humidity too high (more [...] help open sinuses and allow easier breathing. Oidl-upd-jzlhrcn treatments* In addition to the previous suggestions, you may get relief for nasal and sinus obstruction or discomfort by taking non-prescription, gaap-zvj-tzoehmt (OTC) medications. Many OTC medications combine a [...] Education and Research (MER). All rights reserved. [id number] documented in this encounter Progress Notes Esther [...] has been using Flonase nasal spray and necn-rol-ixquada decongestant and Tylenol or ibuprofen for symptoms. [...] a humidifier in the room. May use tvrf-uam-xnmhirk Flonase to help with congestion. Drink warm [...] Primary documented in this encounter Care Teams Enrichment Teacher Relationship Specialty Start Date End Date Elsewhere, Pcp PCP - General Family Medicine 01/08/18 01/12/21 documented as of this encounter
--- OUTSIDE RECORDS SUMMARY | 2022-07-17 12:52 | XMS_ITS | Encounter Summary ---
:1990 Author Organization [facility] Address [address] [place] [address] Care Team Providers Name Role Phone Elsewhere, Pcp Primary Care Provider Unavailable Encounter Details Date Type Department Care Team Description 01/28/2019 Hospital Encounter Department of Radiology Ben Arce M.D. Edema Leg in [place] [address] [place] [phone] Social History Tobacco Use Types Packs/Day Years [...] do you attend christian or Never 2021 restorationist services? Do you [...] at Date Recorded Female 12/02/2021 5:19 PM MELT ROOM OPERATOR documented as of this encounter Medications [...] Leg documented in this encounter Care Teams Mover Helper Relationship Specialty Start Date End Date Elsewhere, Pcp PCP - General Family Medicine 01/08/18 01/12/21 documented as of this encounter
--- OUTSIDE RECORDS SUMMARY | 2022-07-17 12:52 | XMS_ITS | Encounter Summary ---
:1990 Author Organization [facility] Address [address] [place] [address] Care Team Providers Name Role Phone Elsewhere, Pcp Primary Care Provider Unavailable Reason for Visit Reason Comments Sinus Symptoms ST, Cipriano ear pressure, conges tion; 3.5 wks ago Encounter Details Date Type Department Care Team Description 06/27/2019 Office Visit Urgent Care, [facility] [place], [place] [address], [address] [place] [phone] (Wo rk) Social History Tobacco Use Types [...] do you attend gnosticism or Never 2021 hoahaoism services? Do you [...] at Date Recorded Female 12/02/2021 5:19 PM BIOFUELS PLANT SUPERINTENDENT documented as of this encounter Last [...] Primary documented in this encounter Care Teams Truck Headlight Assembler Relationship Specialty Start Date End Date Elsewhere, Pcp PCP - General Family Medicine 01/08/18 01/12/21 documented as of this encounter
--- OUTSIDE RECORDS SUMMARY | 2022-07-17 12:52 | XMS_ITS | Encounter Summary ---
:1990 Author Organization [facility] Address [address] [place] [address] Care Team Providers Name Role Phone Elsewhere, Pcp Primary Care Provider Unavailable Encounter Details Date Type Department Care Team Description 01/28/2019 Hospital Encounter Department of Radiology, Ben Arias M.D. [place] [address] [address] [place], [place] [facility] [address] [place] [address] [phone] Social History Tobacco Use Types Packs/Day Years [...] do you attend yarsani or Never 2021 catholic services? Do you [...] at Date Recorded Female 12/02/2021 5:19 PM BOILER SHOP SUPERVISOR documented as of this encounter Medications [...] on filedocumented in this encounter Care Teams Cobol Application Developer Relationship Specialty Start Date End Date Elsewhere, Pcp PCP - General Family Medicine 01/08/18 3 documented as of this encounter
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
--- OUTSIDE RECORDS SUMMARY | 2022-07-17 12:52 | XMS_ITS | Encounter Summary ---
:1990 Author Organization [facility] Address [address] [place] [address] Care Team Providers Name Role Phone Elsewhere, Pcp Primary Care Provider Unavailable Reason for Visit Reason Comments Follow-up Outpatient (Routine) - Closed Specialty Diagnoses / Procedures Referred By Contact Refer red To Contact Family Medicine Ben Arce M.D. [facility] Region [address] [place] [address] Referral ID Status Reason Start Date Expiration Date Visits Requ ested Visits Authorized [id number] Closed 01/28/2019 01/28/2020 1 1 Encounter Details Date Type Department Care Team Description 02/11/2019 Office Visit Department of Ben Metzger M.D. Thrombosis Superficial Medicine in [facility] [address] Vein Lower Extremity [place], [place] Left (Primary Dx) [address] [place] [address] [place], [place] [phone] (Work) [phone] Social History Tobacco Use Types Packs/Day Years [...] do you attend restoration or Never 2021 samaritan services? Do you [...] at Date Recorded Female 12/02/2021 5:19 PM SWITCH TECHNICIAN documented as of this encounter Last [...] Primary documented in this encounter Care Teams Apartment Maintenance Worker Relationship Specialty Start Date End Date Elsewhere, Pcp PCP - General Family Medicine 01/08/18 01/12/21 documented as of this encounter
--- OUTSIDE RECORDS SUMMARY | 2022-07-17 12:52 | XMS_ITS | Encounter Summary ---
:1990 Author Organization [facility] Address [address] [place] [address] Care Team Providers Name Role Phone Elsewhere, [...] Type Department Care Team Description 07/29/2019 Emergency [place] [facility] Sigrid Forbes ontusion Left Lower Department D, MMaribellDMaribell Leg Initial (Primary [address] Dx) [place] [phone] (Wo rk) Social History Tobacco Use Types [...] do you attend amish or Never 2021 anabaptism services? Do you belong to any clubs or No 11/20/2021 organizations such as amish groups, unions, fraSensorflare PC or athletic groups, or school groups? 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 Thank you for choosing [facility] for your care. It was a pleasure taking care of you today in our Emergency Department. AttachmentsThe following attachments cannot be sent through Care Everywhere. Contusion [id number] (Khmer)documented in this encounter Medications at Time of Discharge Medication Sig Dispensed Refills Start Date End Date acetaminophen (TYLENOL Take by mouth as 0 08/11/2019 ORAL) needed. etonogestreL (NEXPLANON) 1 each by implant 0 12/2112/20/2021 68 mg subdermal implant route continuously. documented as of this encounter ED Notes Sigrid Forbes M.D. - 07/29/2019 4:50 PM CDT [facility] EMERGENCY DEPARTMENT ENCOUNTER Patient Name: [...] of the incident with the reassuring ROS [facility] neuro system, I do not feel that [...] CDT eGFR-Black/Afric >90 >=60 07/29/2019 [facility] an Panamanian mL/min/BSA 6:50 PM CDT Comment: ----ADDITIONAL INFORMATION---- [...] Phon e Number [facility] [address] [place] [address] [facility] [place] [address] [place] [address] [address] [facility] (ABNORMAL) CBC without Differential (07/29/2019 6:21 PM CDT) [facility] Method Time Signature Hemoglobin 13.2 [...] Number [facility] [address] [place], [place] [address] [facility] [place] [address] [facility] [address] DX [...] Sigrid Forbes M.D. IMG DIAGNOSTIC IMAGING PROCE [facility] CT Lumbar Spine by Reconstruction [...] (Given - Provider: Gurdeep Persaud(R)(CT) - Comment: [id number]) 100 mL, intravenous, Once in imaging, co [...] [id number] documented in this encounter Care Teams Calender Wind Up Helper Relationship Specialty Start Date End Date Elsewhere, Pcp PCP - General Family Medicine 01/08/18 01/12/21 documented as of this encounter
--- OUTSIDE RECORDS SUMMARY | 2022-07-17 12:52 | XMS_ITS | Encounter Summary ---
:1990 Author Organization [facility] Address [address] [place] [address] Care Team Providers Name Role Phone Elsewhere, Pcp Primary Care Provider Unavailable Reason for Visit Reason Comments Sore Throat SX: in ER Sunday with josiane st inflammation; st started Encounter Details Date Type Department Care Team Description 07/26/2019 [facility], [facility]C. (Primary Dx) [place], [place] [address], [address] [place] [address] [phone] (Wo rk) Social History Tobacco Use Types [...] do you attend pentecostal or Never 2021 voodoo services? 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
--- OUTSIDE RECORDS SUMMARY | 2022-07-17 12:52 | XMS_ITS | Encounter Summary ---
:1990 Author Organization [facility] Address [address] [place] [address] Care Team Providers Name Role Phone Elsewhere, Pcp Primary Care Provider Unavailable Reason for Visit Reason Comments Nasal Congestion pt presents concerned for po ssible sinus infection. c/o of facial pain, congestion, ear pain a nd throat pain. symptoms for approx one month. denies fevers. has be en taking mucinex Encounter Details Date Type Department Care Team Description 03/28/2019 Emergency [facility] Emergency Valerie Malone, Infec kori Upper Department M.DMaribell Respiratory (Primary [address] Dx) [place] [address] [phone] Social History Tobacco Use Types Packs/Day Years [...] do you attend jain or Never 2021 zoroastrianism services? 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
--- OUTSIDE RECORDS SUMMARY | 2022-07-17 12:52 | XMS_ITS | Encounter Summary ---
:1990 Author Organization [facility] Address [address] [place] [address] Care Team Providers Name Role Phone Elsewhere, Pcp Primary Care Provider Unavailable Reason for Referral Outpatient (Routine) - Closed Specialty Diagnoses / Procedures Referred By Contact Refer red To Contact Family Medicine Ben Arce M.D. [facility] [address] [place] [address] Referral ID Status Reason Start Date Expiration Date Visits Requ ested Visits Authorized [id number] Closed 01/28/2019 01/28/2020 1 1 Reason for Visit Reason Comments Follow-up Sprain knee Encounter Details Date Type Department Care Team Description 01/28/2019 Comprehensive Visit Department of Ben Metzger, Pain Knee Left (Primary Dx); [facility]; [place], [place] [address] Thrombosis Superficial Vein Lower Extremity Left [address] [place] [phone] Social History Tobacco Use Types Packs/Day Years [...] do you attend temple or Never 2021 amish services? Do you belong to any clubs or No 11/20/2021 organizations such as temple groups, unions, fraSocialGlimpz or athletic groups, or school groups? How [...] Date Recorded Female 12/02/2021 5:19 PM MANAGER COMMUNITY RELATIONS documented as of this encounter Last Filed [...] Name Type Priority Associated Diagnoses Order S [facility] Medicine Outpatient Referral Routine Expec taurus: [...] Leg documented in this encounter Care Teams Trigonometry Tutor Relationship Specialty Start Date End Date Elsewhere, Pcp PCP - General Family Medicine 01/08/18 01/12/21 documented as of this encounter
--- OUTSIDE RECORDS SUMMARY | 2022-07-17 12:52 | XMS_ITS | Encounter Summary ---
:1990 Author Organization [facility] Address [address] [place] [address] Care Team Providers Name Role Phone Elsewhere, [...] Type Department Care Team Description 07/23/2019 Emergency [place] [facility] Bull Calderon Cos tochondritis (Primary Department M.D. Dx) [address] [place] [facility] [place] [phone] Social History Tobacco Use Types Packs/Day Years [...] do you attend yarsanism or Never 2021 yazidi services? Do you [...] Date Recorded Female 12/02/2021 5:19 PM OFFICE CLINICIAN documented as of this encounter Last [...] cannot be sent through Care Everywhere. Costochondritis Dyih-bk-Ykdk (Korean)documented in this encounter Medications at Time [...] Plan Impression: Costochondritis Plan: Patient has utilize xrxq-xgp-xipldpd medications without improvement or alteration in her symptomatology. Patient be started on prednisone 20 mg daily for 5 days, the 1st dose administered here in the emergency department. Ultram 50 mg 1/2-1 tablet to be utilized every 6 hours as needed for painrating 7-10/10 severity, quantity 15 with no refills was prescribed from the [employer] medication dispenser as it is currently raining [...] dose documented in this encounter Care Teams Office Employee Relationship Specialty Start Date End Date Elsewhere, Pcp PCP - General Family Medicine 01/08/18 01/12/21 documented as of this encounter
--- OUTSIDE RECORDS SUMMARY | 2022-07-17 12:53 | XMS_ITS | Encounter Summary ---
:1990 Author Organization [facility] Address [address] [place] [address] Care Team Providers Name Role Phone Unavailable Primary Care Provider Unavailable Encounter Details Date Type Department Care Team Description 01/15/2017 Hospital Encounter HX [facility] Felix Guillen M.D. [address] [place], [place] [address] (Wo rk) Social History [...] do you attend yazidi or Never 2021 anabaptism services? Do you [...] Date Recorded Female 12/02/2021 5:19 PM HEAD OF MERCHANDISE BUYING documented as of this encounter Last Filed [...] [facility] [address] [place] [address] Name: DILLAN MATA Date of : 1990 12:00 AM Visit Date: 01/15/2017 7:46 PM [facility] Number: [phone] Address: [address] [place] [id number] Primary Care Provider: PCP, BHARATHI IMPORTANT: [facility] in [place] would like to thank you for allowing [...] becomes cold, blue, numb or tingly ?? [phone] [facility], [address] [place] [address], [place] [address]. All rights reserved. This information is not [...] if you dont have one. Go to [email or web address] and click on Create Your Account. Then, follow the directions to complete the online form. Youll be asked for your [facility] number which you can find at the [...] Date Time Provider Signature Date Time Source: OpenDNS Document Id: [id number] Angelica Sandra R.N. - 01/15/2017 11:20 PM [...] ED Discharge 01/15/2017 11:10 PM Tracking Id [id number] Checkout 01/15/2017 11:10 PM Checkin 01/15/2017 7:46 PM Acuity 4 -Less Urgent Dispo Type * Discharged to Home or Self Care Arrival 01/15/2017 7:46 PM Reg Status LOS 000 03:24 Address: [address] [place] [address] Comment: PROVIDER INFORMATION Provider Role Provider Contact Time ANGELICA SANDRA ED Nurse 01/15/17 19:57 NIKOS MENDEZ MD ED Provider 01/15/17 20:09 DIAGNOSIS Contusion Hand Initial R Comment: PATIENT EDUCATION INFORMATION Instructions: CONTUSION, Hand Follow up: With: Address: When: Follow up with primary care provider Within As Needed Comments: Call for follow up appointment. If symptoms worsen. Source: [facility] POWERCHART Document Id: [id number] documented in this encounter Medications at Time [...] ANGELICA SANDRA - 01/15/2017 23:19 CDT Source: OpenDNS Document Id: [id number] CDT!9 Angelica Sandra R.N. - 01/15/2017 11:05 [...] ANGELICA SANDRA - 01/15/2017 23:19 CDT Source: OpenDNS Document Id: [id number] CDT!9 Angelica Sandra R.N. - 01/15/2017 11:02 [...] Motor Response Sophie : Obeys simple commands [place] Coma Score : 15 ANGELICA SANDRA 01/15/2017 23:02 CDT GI Reassess GI Patient Stated Symptoms : None ANGELICA SANDRA - 01/15/2017 23:02 CDT /OB Reassess Patient Stated Symptoms : None ANGELICA SANDRA - 01/15/2017 23:02 CDT Source: [employer] Branding Graphics Display System POWERIntenseDebate Document Id: [id number] CDT!34 Kim Bartholomew R.N. - 01/15/2017 10:00 [...] Brenda RN - 01/15/2017 22:00 CDT Source: OpenDNS Document Id: [id number] CDT!15 Nikos Mendez M.D. - 01/15/2017 9:52 [...] Stat, Patient Bed, Once, 01/15/2017 21:53 CDT, [facility] Urology. Radiology results:Emergency physician interpretation: Creator: Nikos Mendez Date: Jan 15, 2017 23:04:53 Subject: Preliminary ER Physician Findings (preliminary only - not final):Three-view x-ray of the right hand: Negative for fracture or dislocation. Brant Cortes Impression and Plan Diagnosis Contusion Hand Initial R (Discharge, Emergency medicine, Medical) Plan Condition: Stable. Disposition: Discharged: Time 01/15/2017 23:05:00, to home. Prescriptions: Prescription Sonographer Pharmacy: ibuprofen 200 mg oral tablet (Prescribe): [...] MENDEZ MD On: 01/15/2017 11:07 PM Source: [facility] POWERCHART Document Id: {[id number]} Angelica Sandra R.N. - 01/15/2017 8:55 PM [...] Response Sophie : Oriented Best Motor Response [place] : Obeys simple commands Sophie Coma Score : 15 ANGELICA SANDRA 01/15/2017 20:55 CDT GI Reassess GI Patient Stated Symptoms : None ANGELICA SANDRA 01/15/2017 20:55 CDT Source: [facility] POWERCHART Document Id: [id number] CDT!3 Angelica Sandra R.N. - 01/15/2017 7:51 [...] PNED ; Probability: 0 ; Diagnosis Code: [id number] Triage Chief Complaint Description : Pt presents [...] kg/m2 ANGELICA SANDRA - 01/15/2017 19:51 CDT [place] Coma Eye Opening Response [place] : Spontaneously Best Verbal Response [place] : Oriented Best Motor Response [place] : Obeys simple commands Sophie Coma Score [...] Musculoskeletal Fall Prevention Education Provided : NA NAGELICA SANDRA 01/15/2017 19:51 CDT Social Habits Smoking Status : Never smoker Tobacco 2A : No Tobacco Use/Currently Using : No Tobacco Use/Last 30 Days : No Tobacco Use/Last 12 months : No ANGELICA SANDRA 01/15/2017 19:51 CDT Alcohol Use Grid Alcohol Use : No ANGELICA SANDRA 01/15/2017 19:51 CDT Recreational Drug Use Grid Drug Use : None ANGLEICA SANDRA 01/15/2017 19:51 CDT Source: OpenDNS Document Id: [id number] CDT!117 documented in this encounter Miscellaneous Notes Miscellaneous - Conversion, Historical Provider Ser - 01/15/2017 11:10 PM CDT Coding Summary-Paper Based CODING DATE: 01/22/2017 FINAL [facility] STATUS: * Discharged to Home or [...] DUONG Date Saved: 01/22/2017 10:08 am Source: OpenDNS Document Id: [id number] Miscellaneous - Angelica Sandra RMaribellN. - 01/15/2017 11:05 PM CDT Valuables/Belongings Valuables/Belongings Entered On: 01/15/2017 23:20 CDT Performed On: 01/15/2017 23:05 CDT by ANGELICA SANDRA Valuables/Belongings Belongings Sent Home With : all belongings sent home with patient ANGELICA SANDRA - 01/15/2017 23:20 CDT Source: OpenDNS Document Id: [id number] CDT!3 documented in this encounter Plan of [...]
--- OUTSIDE RECORDS SUMMARY | 2022-07-17 12:53 | XMS_ITS | Encounter Summary ---
:1990 Author Organization [facility] Address [address] [place] [address] Care Team Providers Name Role Phone Elsewhere, Pcp Primary Care Provider Unavailable Reason for Visit Reason Comments Sinus Symptoms 30 + days ago Encounter Details Date Type Department Care Team Description 12/12/2018 Office Visit Express Care in [facility] Mario Savage, Inf ection [place], [place] P.A.-C. Respiratory (Primary [address], Dx) [facility] C [address] [place], [place] [phone] (Wo rk) Social History Tobacco Use Types [...] do you attend faith or Never 2021 druze services? Do you [...] at Date Recorded Female 12/02/2021 5:19 PM DOUGH PANNER documented as of this encounter Last Filed Vital Signs Vital Sign Reading Time Taken Comments Blood Pressure 136/92 12/12/2018 7:15 PM DOUGH PANNER Pulse 86 12/12/2018 7:15 PM DOUGH PANNER Temperature 36.9 ??C (98.4 ??F) 12/12/2018 7:15 PM DOUGH PANNER Respiratory Rate - - Oxygen Saturation 96% 12/12/2018 7:15 PM DOUGH PANNER Inhaled Oxygen Concentration - - Weight 72 kg (158 lb 11.7 oz) 12/12/2018 7:15 PM DOUGH PANNER Height - - Body Mass Index 31 10/31/2018 6:04 PM DOUGH PANNER documented in this encounter Patient Instructions Patient [...] urgent care if worsening. Mario Savage P.A.-C. H PANNER documented in this encounter Progress Notes Mario [...] urgent care if worsening. Mario Savage P.A.-C. H PANNER documented in this encounter Plan of Treatment Not on filedocumented as of this encounter Visit Diagnoses Diagnosis Infection Upper Respiratory - Primary documented in this encounter Care Teams Pelota Maker Relationship Specialty Start Date End Date Elsewhere, Pcp PCP - General Family Medicine 01/08/18 01/12/21 documented as of this encounter
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
--- OUTSIDE RECORDS SUMMARY | 2022-07-17 12:53 | XMS_ITS | Encounter Summary ---
:1990 [facility] Address [address] [place] [address] Care Team Providers Name Role Phone Unavailable Primary Care Provider Unavailable Encounter Details Date Type Department Care Team Description 06/14/2017 Hospital Encounter HX [facility] Essence Yin M.D. [address] [place], [place] [phone] (Wo rk) Social History [...] do you attend cheondoism or Never 2021 amish services? Do you [...] at Date Recorded Female 12/02/2021 5:19 PM SHIP WASHER documented as of this encounter Last [...] 06/14/2017 9:06 PM CDT ED Depart Summary [facility] Emergency Department Clinical Discharge Summary PERSON INFORMATION Name DILLAN MATA Age 27 Years 1990 12:00 AM Sex Female Language Nigerian PCP PCP, ELSEWHERE Marital Status Unknown Visit Id Visit Reason Foot injury - Minor; FOOT PAIN Specialty Enc Type Emergency Med Service Emergency Medicine Referred by Track Group AAKASHMonica ED Discharge 06/14/2017 7:45 PM Tracking Id [id number] Checkout 06/14/2017 7:45 PM Checkin 06/14/2017 6:17 PM Acuity 4 -Less Urgent Dispo Type * Discharged to Home or Self Care Arrival 06/14/2017 6:17 PM Reg Status LOS 000 01:28 Address: [address] [place] [phone] Comment: PROVIDER INFORMATION Provider Role Provider Contact Time CHAVA KUHN ORNAMENTER HAND Nurse 06/14/17 18:44 CHU ADKINS MD ED Provider 06/14/17 18:52 ANDREW BROCK ORNAMENTER HAND Nurse 06/14/17 19:21 DIAGNOSIS Sprain Foot Initial L Comment: PATIENT EDUCATION INFORMATION Instructions: SPRAIN FOOT Follow up: With: Address: When: Follow up with primary care in 1 week if not improving. Return to the ED for increasing pain or swelling. Within As Needed Source: [facility] POWERCHART Document Id: [id number] Andrew Brock R.N. - 06/14/2017 9:06 PM CDT ED Discharge Instructions [address] [address] Name: DILLAN MATA Date of : 1990 12:00 AM Visit Date: 06/14/2017 6:17 PM [facility] Number: [phone] Address: [address] [facility] [phone] Primary Care Provider: PCPBHARATHI IMPORTANT: [facility] in [place] would like to thank you for allowing [...] become cold, blue, numb, or tingly ?? [phone] [facility], [address] [place] [address]. All rights reserved. This information is not [...] one. Go to [email or web address] and click on Create Your Account. Then, follow the directions to complete the online form. Youll be asked for your [facility] number which you can find at [...] Democrat/Relationship Date Time Provider Signature Date Time This document has images extracted. Please consider using [employer] for all your patient education needs. Source: WorldMate Document Id: [id number] Andrew Brock R.N. - 06/14/2017 7:45 PM CDT ED Disposition Summary ED Disposition Summary Entered On: 06/14/2017 20:33 CDT Performed On: 06/14/2017 19:45 CDT by ANDREW BROCK ORNAMENTER HAND Disposition Summary Present in Room During Exam/Procedure : Alone Mode of Discharge : Ambulatory Transportation : Private vehicle Discharge From ED With : Home Med List Printed Discharge Instructions Given to Patient : Yes Patient Status at Discharge from ED : Improved 30 Minutes Critical Care : No ANDREW BROCK RN - 06/14/2017 20:33 CDT Source: WorldMate Document Id: [id number] CDT!9 documented in this encounter Medications at [...] BROCK RN - 06/14/2017 21:05 CDT [facility] Document Id: [id number] CDT!18 Andrew Brock R.N. - 06/14/2017 7:30 [...] BROCK RN - 06/14/2017 22:10 CDT Source: [facility] POWERCHART Document Id: [id number] CDT!5 Andrew Brock R.N. - 06/14/2017 7:21 [...] ANDREW BROCK RN - 06/14/2017 19:21 CDT [place] Coma Eye Opening Response [place] : Spontaneously Best Verbal Response [place] : Oriented Best Motor Response Sophie : [...] BROCK RN - 06/14/2017 19:21 CDT [facility] Document Id: [id number] CDT!37 Chu Adkins M.D. - 06/14/2017 6:52 [...] Stat, Patient Bed, Once, 06/14/2017 18:53 CDT, [facility] Urology. Radiology results:* Final Report * Reason [...] Transcribed by: ROSHAN Technologist: NAYANA ESPOSITO RT(R)(CT) [id number] This document has an image Result type: XR Foot Left 3 or more views Result date: June 14, 2017 19:14 CDT Result status: Auth (Verified) Result title: XR Foot Left 3 or more views Performed by: DAVID SEPULVEDA MD on June 14, 2017 19:18 CDT Verified by: DAVID SEPULVEDA MD on June 14, 2017 19:18 CDT Encounter info: [id number], [facility], Emergency, 06/14/2017 - . [...] ADKINS MD On: 06/14/2017 07:35 PM Source: [facility] POWERCHART Document Id: [id number]} Chava Kuhn R.N. - 06/14/2017 6:37 PM [...] PNED ; Probability: 0 ; Diagnosis Code: [id number] Triage Triage Treatments : Ice to affected area CAHVA KUHN RN - 06/14/2017 19:11 CDT Chief [...] Ambulatory Track : Trauma Other Languages : Nigerian Vital Signs Assessed : Yes Treatments Prior [...] CDT DCP GENERIC CODE Tracking Group : [facility] ED Tracking Acuity : 4 [...] Heart Rhythm : Regular Skin Color : [place] Skin Description : Normal Skin Temperature : [...] KUHN RN - 06/14/2017 18:37 CDT Source: [facility] Edfa3ly Document Id: [id number] CDT!3 documented in this encounter Miscellaneous Notes Miscellaneous - Andrew Brock RHarish - 06/14/2017 7:45 PM CDT Valuables/Belongings Valuables/Belongings Entered On: 06/14/2017 20:33 CDT Performed On: 06/14/2017 19:45 CDT by ANDREW BROCK RN Valuables/Belongings Belongings Sent Home With : All sent w/pt at d/c Home Medication Disposition : None brought in with patient ANDREW BROCK RN - 06/14/2017 20:32 CDT Source: WorldMate Document Id: [id number] CDT!4 Miscellaneous - Conversion, Historical Provider Ser - 06/14/2017 7:45 PM CDT Coding Summary-Paper Based CODING DATE: 06/26/2017 FINAL AAKASH [place] [facility] STATUS: * Discharged to Home or [...] LORD Date Saved: 06/26/2017 09:17 am Source: WorldMate Document Id: [id number] documented in this encounter Plan of Treatment [...]
--- OUTSIDE RECORDS SUMMARY | 2022-07-17 12:53 | XMS_ITS | Encounter Summary ---
:1990 Author Organization [facility] Address [address] [place] [address] Care Team Providers Name Role Phone Elsewhere, Pcp Primary Care Provider Unavailable Reason for Visit Reason Comments Sore Throat pt with 2 1/2 week history o f sinus congestion now presents with sore throat. Throat pain started about 4 days ago, and is getting worse every day. Encounter Details Date Type Department Care Team Description 09/22/2018 Emergency [place] [facility] Marissa Mccormack, Catie lawsonnicole Acute Department D.O. (Primary Dx) [address] [place] [phone] Social History Tobacco Use Types Packs/Day Years [...] do you attend jainism or Never 2021 christian services? Do you [...] at Date Recorded Female 12/02/2021 5:19 PM CITY AUDITOR documented as of this encounter Last Filed Vital Signs Vital Sign Reading Time Taken Comments Blood Pressure 128/88 09/22/2018 9:00 AM CITY AUDITOR Pulse 88 09/22/2018 9:00 AM CITY AUDITOR Temperature 37.5 ??C (99.5 ??F) 09/22/2018 9:00 AM CITY AUDITOR Respiratory Rate 16 09/22/2018 9:00 AM CITY AUDITOR Oxygen Saturation 99% 09/22/2018 9:00 AM CITY AUDITOR Inhaled Oxygen Concentration - - Weight 71.9 kg (158 lb 8.2 oz) 09/22/2018 8:10 AM CITY AUDITOR Height 157 cm (5' 1.81) 09/22/2018 8:10 AM CITY AUDITOR Body Mass Index 29.17 09/22/2018 8:10 AM CITY AUDITOR documented in this encounter Discharge Instructions Discharge InstructionsBuMarissa lopez D.O. - 09/22/2018 8:59 AM CST Take the steroids daily, and take ibuprofen and/or tylenol as needed for pain. You should return to the ED for dehydration, if you are more swollen, have difficulty breathing or cannot swallow. AUDITOR AttachmentsThe following attachments cannot be sent through Care Everywhere.Sore Throat (Georgian)documented in this encounter Medications at Time [...] Pharyngitis Acute Marissa Mccormack D.O. 09/22/18 0917 AUDITOR documented in this encounter Plan of Treatment Not on filedocumented as of this encounter Procedures Procedure Name Priority Date/Time Associated Diagnosis Comme nts RAPID STREP A STAT 09/22/2018 8:37 AM Results for this SCREEN CITY AUDITOR procedure are i n the results section. BACTERIAL CULTURE, STAT 09/22/2018 8:37 AM Res ults for this THROAT CITY AUDITOR procedure are i n the results section. documented in this encounter Results Bacterial Culture, Throat (09/22/2018 8:37 AM CITY AUDITOR) [facility] Method Time Signature Throat No growth of 09/24/[address] [facility] Culture Streptococcus 7:07 AM CITY AUDITOR HEALTH pyogenes [facility] LAB Specimen Anatomical Collection Method Collection Time Receive d Time (Source) Location / / Volume Laterality Throat Swab 09/22/2018 8:37 AM 8 3:28 CITY AUDITOR PM CITY AUDITOR Marissa Mccormack D.O. LAB MICROBIOLOGY - GENERAL O RDERABLES Performing Organization Address City/State/ZIP Code Phon e Number [facility] [address] [place] [address] LAB Rapid Strep A Screen (09/22/2018 8:37 AM CITY AUDITOR) P athologist Signature Rapid Strep A Negative Negative 09/22/[address] [facility] Screen 8:52 AM [facility] LAB Specimen Anatomical Collection Method Collection Time Receive d Time (Source) Location / / Volume Laterality Varies (Throat) 09/22/2018 8:37 AM 2017 8:41 CITY AUDITOR AM CITY AUDITOR Marissa Mccormack D.O. LAB MICROBIOLOGY - GENERAL O RDERABLES Performing Organization Address City/State/ZIP Code Phon e Number [address] [address] [place] [facility] documented in this encounter Visit Diagnoses Diagnosis Pharyngitis Acute - Primary documented in this encounter Care Teams Charter Boat Captain Relationship Specialty Start Date End Date Elsewhere, Pcp PCP - General Family Medicine 01/08/18 01/12/21 documented as of this encounter
--- OUTSIDE RECORDS SUMMARY | 2022-07-17 12:53 | XMS_ITS | Encounter Summary ---
:1990 Author Organization [facility] Address [address] [place] [address] Care Team Providers Name Role Phone Elsewhere, Pcp Primary Care Provider Unavailable Reason for Visit Reason Comments Headache frontal and middle of head Earache Cipriano ear pain Sore Throat drainage Sinus Problem over 1 month Encounter Details Date Type Department Care Team Description 01/07/2018 Office Visit Express Care in [facility] [place], [place] FATOU Samuel, C.N.P., (Primary Dx) [address] [place] [address] Social History Tobacco Use Types Packs/Day Years [...] do you attend religious or Never 2021 buddhist services? Do you [...] Date Recorded Female 12/02/2021 5:19 PM FINANCIAL SALES PROFESSIONAL documented as of this encounter Last [...] who goes to preschool. She works at [employer] with several people throughout theday. She has [...] Primary documented in this encounter Care Teams Yarn Cleaner Relationship Specialty Start Date End Date Elsewhere, Pcp PCP - General Family Medicine 01/08/18 01/12/21 documented as of this encounter
--- OUTSIDE RECORDS SUMMARY | 2022-07-17 12:53 | XMS_ITS | Encounter Summary ---
:1990 Author Organization [facility] Address [address] [place] [address] Care Team Providers Name Role Phone Elsewhere, Pcp Primary Care Provider Unavailable Reason for Visit Reason Comments Skin Problem pt is noted to have bump i n left armpit and left groin, both are painful, denies fever or chi lls, states the leg bump popped on sunday Encounter Details Date Type Department Care Team Description 08/07/2018 Emergency [place] [facility] Bull Calderon Car buncle Of Groin (Primary Dx); Department M.D. Carbuncle Axilla Left [address] [place] [facility] [phone] Social History Tobacco Use Types Packs/Day Years [...] do you attend congregational or Never 2021 rastafarian services? Do you [...] at Date Recorded Female 12/02/2021 5:19 PM CHARTER PILOT documented as of this encounter Last Filed [...] cannot be sent through Care Everywhere.Skin Abscess Fiuk-pe-Rhiq (Slovenian)documented in this encounter Medications at Time [...] override documented in this encounter Care Teams Printing Mechanist Relationship Specialty Start Date End Date Elsewhere, Pcp PCP - General Family Medicine 01/08/18 01/12/21 documented as of this encounter
--- OUTSIDE RECORDS SUMMARY | 2022-07-17 12:53 | XMS_ITS | Encounter Summary ---
:1990 Author Organization [facility] Address [address] [place] [address] Care Team Providers Name Role Phone Elsewhere, Pcp Primary Care Provider Unavailable Reason for Visit Reason Comments Sinus Symptoms 3 wks ago; started with ST, then ears and facial pressure. Pt using NetiPot. Sore Throat strep exposure at work Encounter Details Date Type Department Care Team Description 05/08/2018 Office Visit [facility] Arely Ferrell Sinu sitis [place], [place] ELECTRICAL ENGINEERING PROFESSOR, C.N.P. (Primary Dx) [address] [place] [phone] Social History Tobacco Use Types Packs/Day Years [...] do you attend zoroastrianism or Never 2021 denominational services? Do you [...] at Date Recorded Female 12/02/2021 5:19 PM INSULATOR TESTER documented as of this encounter Last [...] care provider none identified. Recently moved to [place]. REVIEW OF SYSTEMS Constitutional: Negative for fever. [...] documented in this encounter Care Teams Group Burner Machine Relationship Specialty Start Date End Date Elsewhere, Pcp PCP - General Family Medicine 01/08/18 01/12/21 documented as of this encounter
--- OUTSIDE RECORDS SUMMARY | 2022-07-17 12:53 | XMS_ITS | Encounter Summary ---
:1990 Author Organization [facility] Address [address] [place] [address] Care Team Providers Name Role Phone Elsewhere, Pcp Primary Care Provider Unavailable Reason for Visit Reason Comments PAYAL has had symptoms for 3-4 we eks Muscle Pain chest and back -05/31, has been using ibuprofen Encounter Details Date Type Department Care Team Description 10/31/2018 Emergency [place] [facility] Valerie Malone, Infec kori Upper Department MMaribellDMaribell Respiratory (Primary [address] Dx) [place] [address] [phone] Social History Tobacco Use Types Packs/Day Years [...] do you attend bahai or Never 2021 confucianism services? Do you [...] at Date Recorded Female 12/02/2021 5:19 PM PREPRESS SUPERVISOR documented as of this encounter Last Filed Vital Signs Vital Sign Reading Time Taken Comments Blood Pressure 134/95 10/31/2018 6:52 PM PREPRESS SUPERVISOR Pulse 81 10/31/2018 6:06 PM PREPRESS SUPERVISOR Temperature 37.2 ??C (99 ??F) 10/31/2018 6:52 PM PREPRESS SUPERVISOR Respiratory Rate 20 10/31/2018 6:06 PM PREPRESS SUPERVISOR Oxygen Saturation 98% 10/31/2018 6:06 PM PREPRESS SUPERVISOR Inhaled Oxygen Concentration - - Weight 73.3 kg (161 lb 9.6 oz) 10/31/2018 6:04 PM PREPRESS SUPERVISOR Height 152.4 cm (5') 10/31/2018 6:04 PM PREPRESS SUPERVISOR Body Mass Index 31.56 10/31/2018 6:04 PM PREPRESS SUPERVISOR documented in this encounter Discharge Instructions AttachmentsThe following attachments cannot be sent through Care Everywhere. Upper Respiratory Infection Adult Jdmp-ic-Gobl (Kyrgyz)documented in this encounter Medications at Time [...] Upper Respiratory Valerie Malone M.D. 10/31/18 1840 RESS SUPERVISOR documented in this encounter Plan of Treatment Not on filedocumented as of this encounter Visit Diagnoses Diagnosis Infection Upper Respiratory - Primary documented in this encounter Care Teams Foot Specialist Relationship Specialty Start Date End Date Elsewhere, Pcp PCP - General Family Medicine 01/08/18 01/12/21 documented as of this encounter
[2022-07-17 13:31] LABS: Hemoglobin* 12.5 gm/dL (12.0-16.0); Mean Corpuscular HGB Conc 34 gm/dL (32-36); Mean Corpuscular Hemoglobin 28 pg (26-34); Mean Corpuscular Volume 83 fL (80-100); Platelet Count* 236 K/uL (140-440); Red Blood Count 4.46 m/uL (4.00-5.20); White Blood Count* 8.34 K/uL (4.50-11.00)
[2022-07-17 13:35] LABS: Total Protein Urine < 5 mg/dL
[2022-07-17 13:36] LABS: Slide Review Reflex No
[2022-07-17 13:38] LABS: Creatinine Urine 122.7 mg/dL
[2022-07-17 13:52] LABS: Aspartate Amino Transferase* 17 U/L (12-35); Creatinine* 0.5 mg/dL (0.5-1.5); Estimated Glomerular Filt Rate 127 ml/min
[2022-07-17 13:53] LABS: Alanine Aminotransferase* 13 U/L (4-35); Blood Urea Nitrogen* 7 mg/dL (5-24)
--- NOTE | 2022-07-17 14:37 | PC.OBNST ---
NST Note NST Note Start: 07/17/22 12:43 Freq: ONCE Status: Active Protocol: Document 07/17/22 14:36 LP (Rec: 07/17/22 14:37 LP [id number]) NST Note 3 Para (# of births) 1 EDC 08/14/22 Gestational Age In Weeks & Days 36 Weeks & 0 Days High Risk Factors High Blood Pressure - Gestational,Diabetes - Gestational Oral Hypoglycemics Patient Presented with Complaint(s) of Headache,Other Other Complaints High blood pressures at home Reactive Yes Appropriate for Gestational Age Yes KATHI Armas, RN Date 07/17/22 Reactive Yes Appropriate for Gestational Age Yes KATHI Romero RN Date 07/17/22 OB NST charge Yes Complete NST Note via Write Note Yes The provider's electronic signature indicates the NST is reactive/appropriate for gestational age. *Note to provider: If an addendum is required, open the patient's chart and click on the note under the Nurse/Allied Health tab.
== END 2022-07-17 14:25 | disposition home or self-care (01) ==
LOC: OB OUT 12:43 → OB 12:44
PROVIDERS: Advanced Practice Midwife; Visit Provider Advanced Practice Midwife
DX: O13.3 Gestational [pregnancy-induced] hypertension without significant proteinuria, third trimester (principal); Z3A.36 36 weeks gestation of pregnancy; O24.415 Gestational diabetes mellitus in pregnancy, controlled by oral hypoglycemic drugs; Z36.89 Encounter for other specified antenatal screening
CPT/HCPCS: 36415; 59025; 82565; 82570; 84156; 84450; 84460; 84520; 85027; 99213

== ENCOUNTER 2022-07-19 09:42 | Inpatient (IN) | payer MEDICAID, SELFPAY ==
[2022-07-19] VITALS (29 sets, daily range): BP systolic 113–151; BP diastolic 66–97; PULSE 63–94; RESP 14–18; TEMP 36.4–37.1; O2SAT 95–100; BMI 29.6
--- OUTSIDE RECORDS SUMMARY | 2022-07-19 07:42 | XMS_ITS | Encounter Summary ---
:1990 Author Organization [employer] [facility] Address [address], [place] [address] Care Team Providers Name Role Phone Heydi Santana PA-C Primary Care Provider Reason for Visit Reason Comments FOLLOW-UP,DIABETES Encounter Details Date Type Department Care Team Description 06/22/2022 Telemedicine [facility] 3800 Celina Deloen PA-C Gestational diabetes Endocrinology [address] [employer] [place] mellitus (GDM), [address] antepartum, [address] [place], [place] [address] method of control [id number] unspecified (Primary [phone] Dx) Social History Tobacco Use Types Packs/Day [...] from the original note were not included. [facility]: [address] [place] [address] [phone], Nurse Line: [phone] Gestational Diabetes Visit Note June 22, 2022 [...] documented in this encounter Care Teams Truck Driver Relationship Specialty Start Date End Date Heydi Santana PA-C PCP - General 11/14/10 [address] [place] [address] documented as of this encounter
--- OUTSIDE RECORDS SUMMARY | 2022-07-19 07:42 | XMS_ITS | Encounter Summary ---
:1990 Author Organization [facility] Address [address], [place] [address] Care Team Providers Name Role Phone Heydi Santana Jaquelin RENNER Primary Care Provider [phone] Reason for Visit Reason Comments Test Request Encounter Details Date Type Department Care Team Description 03/12/2012 Office Visit Zack Quintanilla Misse d period (Primary Dx); Medicine , incidental [address] [facility] [address] [place] [address] [place] [phone] Social History Tobacco Use Types Packs/Day [...] signed by Zack Yun MD at 03/13/12 0935 Author: Zack Yun MD Service: (none) Author Type: Physician Filed: 03/13/12 0926 Note Time: 03/12/12 140 Status: Signed Manager Reporting: Zack Yun MD (Physician) NAME: DILLAN MATA MR#: [id number] CSN: [id number] AUTHENTICATING CLINICIAN: Zack Yun MD CONFIRM #: [id number] LOC: 3602 CLINIC PROGRESS NOTE DATE OF [...] return as needed. SJC:MEDPérez C: CONFIRM #: [id number] documented in this encounter Plan of Treatment Not on filedocumented as of this encounter Visit Diagnoses Diagnosis Missed period - Primary Irregular menstrual cycle , incidental state, incidental documented in this encounter Care Teams Special Forces Engineer Sergeant Relationship Specialty Start Date End Date Heydi Santana PA-C PCP - General 11/14/10 [address] [place] [address] documented as of this encounter
--- OUTSIDE RECORDS SUMMARY | 2022-07-19 07:42 | XMS_ITS | Encounter Summary ---
:1990 Author Organization [employer] Address [address] [address] Care Team Providers Name Role Phone Max, eHydi Hammer PA-C Primary Care Provider [phone] Reason for Visit Reason Comments APPOINTMENT REQUEST Referral for GDM Encounter Details Date Type Department Care Team Description 06/07/2022 Telephone [facility] 3800 Nurse, P3800 End APPOINTMENT REQUEST Endocrinology [address] (Referral for GDM) [address] [place] [place] [phone] Social History Tobacco Use Types Packs/Day Years [...] 11:58 AM CDT Faxed referral rec'd from [facility] for GDM, records sent to [facility] doc documented in this encounter Plan of Treatment Not on filedocumented as of this encounter Visit Diagnoses Not on filedocumented in this encounter Care Teams Dough Machine Operator Relationship Specialty Start Date End Date Heydi Santana PA-C PCP - General 11/14/10 [address] [place] [address] documented as of this encounter
--- OUTSIDE RECORDS SUMMARY | 2022-07-19 07:42 | XMS_ITS | Encounter Summary ---
:1990 Author Organization [employer] Address [address], [place] [address] Care Team Providers Name Role Phone Heydi Santana PA-C Primary Care Provider [phone] Encounter Details Date Type Department Care Team Description 06/22/[address] [facility] [address] [facility] diabetes Endocrinology MD Reji mellitus (GDM), [address] [facility] [address] [facility] ant epartum, [address] Blvd gestational diabetes [facility] thod of control [id number] unspecified (Primary [phone] (Wo rk) Dx) Social History Tobacco Use [...] female seen in consultation, referred by OBGYN. [facility] in [place], [place]. Planning to deliver at [facility]. Currently at 32 weeks and 3 days [...] condition Both parents have hyperlipidemia. Works at [employer] Plans to work until close to due date. 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 Normal sensation in all 4 [...] Patient will meet with Diabetes Education and Clothes Model after this visit today for instructions as [...] Primary documented in this encounter Care Teams Cut Roll Machine Operator Relationship Specialty Start Date End Date Heydi Santana PA-C PCP - General 11/14/10 [address] [place] [address] documented as of this encounter
--- OUTSIDE RECORDS SUMMARY | 2022-07-19 07:42 | XMS_ITS | Encounter Summary ---
:1990 Author Organization [employer] Address [address] [address] Care Team Providers Name Role Phone Heydi Santana PA-C Primary Care Provider [phone] Reason for Visit Reason Comments Other Encounter Details Date Type Department Care Team Description 06/22/2022 Telephone [facility] 38[address] Celina Deleon PA-C Other Endocrinology [address] [place] [address] [place] [address] [phone] Social History Tobacco Use Types Packs/Day Years [...] on filedocumented in this encounter Care Teams Mold Cooler Relationship Specialty Start Date End Date Heydi Santana PA-C PCP - General 11/14/10 [address] [place] [address] documented as of this encounter
--- OUTSIDE RECORDS SUMMARY | 2022-07-19 07:42 | XMS_ITS | Encounter Summary ---
:1990 Author Organization [employer] Address [address] [address] Care Team Providers Name Role Phone Max, Heydi Jaquelin RENNER Primary Care Provider [phone] Reason for Visit Reason Comments DIABETES,GESTATIONAL Encounter Details Date Type Department Care Team Description 06/30/2022 Telemedicine [facility] ADULT [facility]AB [facility] Yahaira Arrieta stational diabetes MEL Garcia RDN, PAVAN, DU mellitus (GDM), [address] [place] [address] antepartum, [place] [address] [address]VD gestational diabetes [phone] [place], [place] method of control [phone] unspecified (Primary [phone] (Wo rk) Dx) Social History Tobacco Use [...] patient: home Time spent on video in dsvg-sm-eigo contact with patient, if applicable: 20 mins Charted and educated by Lisa Lovelace RN Co-educated by Yahaira Arrieta RDN, [facility] Education content taught can be found in the diabetes education smartform documented in this encounter Plan of Treatment Not on filedocumented as of this encounter Visit Diagnoses Diagnosis Gestational diabetes mellitus (GDM), ant epartum, gestational diabetes method of control unspecified - Primary documented in this encounter Care Teams Pretzel Cooker Relationship Specialty Start Date End Date Heydi Santana PA-C PCP - General 11/14/10 [address] [place] [address] documented as of this encounter
--- OUTSIDE RECORDS SUMMARY | 2022-07-19 07:42 | XMS_ITS | Encounter Summary ---
:1990 Author Organization [facility] Address [address] [address] Care Team Providers Name Role Phone Heydi Santana Jaquelin RENNER Primary Care Provider [phone] Encounter Details Date Type Department Care Team Description 03/12/2012 Lab Visit [facility] y , incidental [address] [place] [address] Social History Tobacco Use Types [...] - 03/12/2012 1:33 PM CDT Performed at [facility], [address] [facility], [place] [address] Zack Yun MD LAB_1 Performing Organization Address City/State/ZIP Code Phon e Number HP CONVERSION documented in this encounter Visit Diagnoses Diagnosis , incidental state, incidental documented in this encounter Care Teams Vest Tailor Relationship Specialty Start Date End Date Heydi Santana PA-C PCP - General 11/14/10 [address] [place] [address] documented as of this encounter
--- OUTSIDE RECORDS SUMMARY | 2022-07-19 07:42 | XMS_ITS | Encounter Summary ---
:[address] [facility] Address [address], [place] [address] Care Team Providers Name Role Phone Heydi Santana PA-C Primary Care Provider [phone] Reason for Referral Consult/Transfer Care (Routine) - New Request Specialty Diagnoses / Procedures Referred By Contact Refer red To Contact Diagnoses Gestational diabetes mellitus (GDM), antepartum, gestational diabetes method of control unspecified Celina Deleon PA-C [address] [place], [place] [address] Referral ID Status Reason Start Date Expiration Date Visits V isits Requested Authorized [id number] New Request 06/16/2022 09/15/2023 1 1 Scheduling Instructions Your provider has recommended an appoint ment with [facility] Diabetes Education. You may call [phone] to schedule yo ur appointment. We suggest you call your health insurance company about your cove rage and benefits for this appointment. Encounter Details Date Type Department Care Team Description 06/16/2022 Notes/Orders [facility] [address] Cel[address] Deleon PA-C Gestational diabetes Endocrinology [address] mellitus (GDM), [address] antepartum, [address] [place], [place] [address] method of control [phone] unspecified (Primary [phone] Dx) Social History Tobacco Use Types Packs/Day [...] documented in this encounter Care Teams Computer Systems Administrator Relationship Specialty Start Date End Date Heydi Santana PA-C PCP - General 11/14/10 [address] [place] [address] documented as of this encounter
--- OUTSIDE RECORDS SUMMARY | 2022-07-19 07:42 | XMS_ITS | Clinical Summary ---
:1990 Author Organization [facility] Address [address], [place] [address] Care Team Providers Name Role Phone Heydi Santana PA-C Primary Care Provider [phone] Source Comments You are receiving this [...] for each transition of care or referral. ironSource Allergies No known active allergies Medications Medication [...] Description 07/14/2022 Telemedicine Diabetes Program Yahaira Arrieta, [facility], LD, CDCES mellitus (GDM ), [...] 37.2 ??C (99 ??F) 10/25/2011 1:10 PM MUSIC PROFESSOR Respiratory Rate 16 10/25/2011 1:10 PM MUSIC PROFESSOR Oxygen Saturation 99% 10/25/2011 1:10 PM MUSIC PROFESSOR Inhaled Oxygen Concentration - - Weight 68.5 [...] Dates Phone Addre ss Type Group [facility] [id number] 2021-Present [phone] CLAIMS Medicaid [address] [place] [address] Lulu Mata Personal/Family Self [address] (Home) [place], [place] [phone] (Work) Lulu Mata Personal/Family Self 1990 [address] (Home) [place] MCINT[place]H [phone] [place]CCONNE[place] (Work) [phone] Care Teams President Sales And Marketing Relationship Specialty Start Date End Date Heydi Santana PA-C PCP - General 11/14/10 [address] [place] [address]
--- OUTSIDE RECORDS SUMMARY | 2022-07-19 07:42 | XMS_ITS | Encounter Summary ---
:1990 Author Organization [employer] Address [address] [address] Care Team Providers Name Role Phone Mxa Heydi Hammer PA-C Primary Care Provider [phone] Reason for Visit Reason Comments DIABETES,GESTATIONAL Encounter Details Date Type Department Care Team Description 07/14/2022 Telemedicine [facility] ADULT DIAB [facility] Yahaira Arrieta Ge stational diabetes MEL Garcia RDN, LD, CDCES mellitus (GDM), [address] [place] [address] antepartum, [place] [address] [address]VD gestational diabetes [phone] [place], [place] method of control [address] unspecified (Primary [phone] (Wo rk) Dx) Social History Tobacco Use [...] patient: home Time spent on video in gmvs-ab-tvbr contact with patient, if applicable: 17 minutes Education content taught can be found in the diabetes education smartform documented in this encounter Plan of Treatment Not on filedocumented as of this encounter Visit Diagnoses Diagnosis Gestational diabetes mellitus (GDM), ant epartum, gestational diabetes method of control unspecified - Primary documented in this encounter Care Teams Carbon Lamp Cleaner Relationship Specialty Start Date End Date Heydi Santana PA-C PCP - General 11/14/10 [address] [place] [address] documented as of this encounter
--- OUTSIDE RECORDS SUMMARY | 2022-07-19 07:42 | XMS_ITS | Encounter Summary ---
:[address] [facility] Address [address] [place] [address] Care Team Providers Name Role Phone Joel Anguiano MD Primary Care Provider Reason for Visit Reason Comments Sore Throat EARACHE left HEADACHE Encounter Details Date Type Department Care Team Description 10/05/2010 Office Visit [facility] Heydi Santana ( upper respiratory infection) (Primary Dx); Practice ZURDO Hammer Sore throat; [address] Rhinitis; [place], [place] [address] [place], [place] TMJ disorder [phone] Social History Tobacco Use Types Packs/Day Years Used Date Smoking Tobacco: Never Alcohol Use Standard Drinks/Week Comments No 0 (1 standard drink = 0.6 oz pure alcoho l) Sex Assigned at Date Recorded Not on file documented as of this encounter Last Filed Vital Signs Vital Sign Reading Time Taken Comments Blood Pressure 116/74 10/05/2010 1:46 PM PARLIAMENTARY COUNSEL Pulse 76 10/05/2010 1:46 PM PARLIAMENTARY COUNSEL Temperature 37.1 ??C (98.7 ??F) 10/05/2010 1:46 PM PARLIAMENTARY COUNSEL Respiratory Rate 16 10/05/2010 1:46 PM PARLIAMENTARY COUNSEL Oxygen Saturation - - Inhaled Oxygen Concentration - - Weight 62 kg (136 lb 9.6 oz) 10/05/2010 1:46 PM PARLIAMENTARY COUNSEL Height - - Body Mass Index - [...] candy/gum/tough meats to chew. Heydi Santana PA-C IAMENTARY COUNSEL documented in this encounter Progress Notes Sita Barker RN - 10/06/2010 4:17 PM PARLIAMENTARY COUNSEL Quick Note: Letter sent. Herminia Barker LPN Nurse for [facility] Dept. Of Family Practice IAMENTARY COUNSEL Heydi Santana - 10/06/2010 8:32 AM PARLIAMENTARY COUNSEL Quick Note: Neg cx Heydi Santana PA-C IAMENTARY COUNSEL Heydi Santana - 10/05/2010 2:17 PM PARLIAMENTARY COUNSEL Quick Note: Reviewed neg strep with pt pending cx Heydi Santana PA-C IAMENTARY COUNSEL Heydi Santana - 10/05/2010 11:45 AM CST [...] to improve as anticipated. Heydi Santana PA-C IAMENTARY COUNSEL documented in this encounter Plan of Treatment Not on filedocumented as of this encounter Procedures Procedure Name Priority Date/Time Associated Diagnosis Comme nts STREP GRP A, RAPID Waiting 10/05/2010 1:52 PM Sore throat Res ults for this SCREEN PARLIAMENTARY COUNSEL procedure are i n the results section. STREP GRP A, THROAT Routine 10/05/2010 1:52 PM Re sults for this CULTURE ONLY PARLIAMENTARY COUNSEL procedure are i n the results section. documented in this encounter Results STREP GRP A, THROAT CULTURE ONLY (10/05/2010 1:52 PM PARLIAMENTARY COUNSEL) [facility] Method Time Signature Grp A Culture Negative [facility] Final Specimen Anatomical Collection Method Collection Time Receive d Time (Source) Location / / Volume Laterality 10/05/2010 1:52 PM 0 2:05 PARLIAMENTARY COUNSEL PM PARLIAMENTARY COUNSEL Heydi Santana PA-C LAB_1 Performing Organization Address City/[facility]/ZIP Code Phon e Number [facility] [phone] [phone] STREP GRP A, RAPID SCREEN (10/05/2010 1:52 PM PARLIAMENTARY COUNSEL) [facility] gist Method Time Signature Grp A Rapid Negative [facility] Screen Specimen Anatomical Collection Method Collection Time Receive d Time (Source) Location / / Volume Laterality 10/05/2010 1:52 PM 0 2:05 PARLIAMENTARY COUNSEL PM PARLIAMENTARY COUNSEL Heydi Santana PA-C LAB_1 Performing Organization Address [facility] Code Phon e Number [facility] [phone] [phone] documented in this encounter Visit Diagnoses Diagnosis URI (upper respiratory infection) - Prim prosper Acute upper respiratory infections of un specified site Sore throat Acute pharyngitis Rhinitis Chronic rhinitis TMJ disorder Temporomandibular joint disorders, unspe cified documented in this encounter Care Teams Production Assembly Operator Relationship Specialty Start Date End Date Joel Anguiano MD PCP - General 01/17/10 11/13/10 [address] [place] [address] documented as of this encounter
--- OUTSIDE RECORDS SUMMARY | 2022-07-19 07:42 | XMS_ITS | Encounter Summary ---
:1990 Author Organization [employer] Address [address] [place] [address] Care Team Providers Name Role Phone Max Heydi Jaquelin RENNER Primary Care Provider [phone] Reason for Visit Reason Comments Sore Throat Encounter Details Date Type Department Care Team Description 02/11/2011 Office Visit [facility] (Primary Dx) [address] [address] Social History Tobacco Use [...] culture obtained. ASSESSMENT: Pharyngitis. PLAN: Symptomatic care. Njim-our-pfsncfg Tylenol or ibuprofen 4 times a day [...] THROAT CULTURE ONLY (02/11/2011 3:33 PM CDT) StartForce Method Time Signature Grp A Culture Negative NEG [facility]ITAL[facility]ek[facility] Global Markets Final Specimen Anatomical Collection Method Collection Time Receive d Time (Source) Location / / Volume Laterality 02/11/2011 3:33 PM 1 3:57 CDT PM CDT Belkis Sanchez APRN RODDING MACHINE TENDER LAB_1 Performing Organization Address [facility] Phon e Number Zapstitch [phone] [facility] [address] [place] [address] STREP GRP A, RAPID SCREEN (02/11/2011 3:33 PM CDT) [employer]Force Method Time Signature Grp A Rapid Negative NEG [facility] Global Markets Screen Specimen Anatomical Collection Method Collection Time Receive d Time (Source) Location / / Volume Laterality 02/11/2011 3:33 PM 1 3:57 CDT PM CDT Belkis Sanchez APRN RODDING MACHINE TENDER LAB_1 Performing Organization Address [facility] Phon e Number [employer] [phone] [facility] [address] [place] [address] documented in this encounter Visit Diagnoses Diagnosis Sore throat - Primary Acute pharyngitis documented in this encounter Care Teams Freight Elevator Operator Relationship Specialty Start Date End Date Heydi Santana PA-C PCP - General 11/14/10 [address] [place] [address] documented as of this encounter
--- OUTSIDE RECORDS SUMMARY | 2022-07-19 07:42 | XMS_ITS | Encounter Summary ---
:1990 Author Organization [employer] Address [address], [place] [address] Care Team Providers Name Role Phone Heydi Santana PA-C Primary Care Provider [phone] Reason for Visit Reason Comments Chest Pain Encounter Details Date Type Department Care Team Description 10/25/2011 Hospital Encounter [facility] King sinusitis, unspecified; Care MD Kim Unspecified asthma, with exacerbation [address] [facility] [address] [place], [place] [phone] [address] Social History Tobacco Use Types Packs/Day Years Used Date Smoking Tobacco: Never Alcohol Use Standard Drinks/Week Comments No 0 (1 standard drink = 0.6 oz pure alcoho l) Sex Assigned at Date Recorded Not on file documented as of this encounter Last Filed Vital Signs Vital Sign Reading Time Taken Comments Blood Pressure 123/78 10/25/2011 1:10 PM TEAM LEADER/RESEARCH PSYCHOLOGIST Pulse 84 10/25/2011 1:10 PM TEAM LEADER/RESEARCH PSYCHOLOGIST Temperature 37.2 ??C (99 ??F) 10/25/2011 1:10 PM TEAM LEADER/RESEARCH PSYCHOLOGIST Respiratory Rate 16 10/25/2011 1:10 PM TEAM LEADER/RESEARCH PSYCHOLOGIST Oxygen Saturation 99% 10/25/2011 1:10 PM TEAM LEADER/RESEARCH PSYCHOLOGIST Inhaled Oxygen Concentration - - Weight - [...] Date:11/04/11, Frequency:2 TIMES DAILY *No Administrations Recorded LEADER/RESEARCH PSYCHOLOGIST documented in this encounter Plan of Treatment Not on filedocumented as of this encounter Visit Diagnoses Diagnosis Acute sinusitis, unspecified Unspecified asthma, with exacerbation (H RC) Unspecified asthma, with exacerbation documented in this encounter Care Teams Qa Internship Relationship Specialty Start Date End Date Heydi Santana PA-C PCP - General 11/14/10 [address] [place] [address] documented as of this encounter
--- OUTSIDE RECORDS SUMMARY | 2022-07-19 07:42 | XMS_ITS | Encounter Summary ---
:1990 Author Organization [employer] Address [address] [place] [address] Care Team Providers Name Role Phone MaxHeydi christensen Jaquelin RENNER Primary Care Provider [phone] Reason for Visit Reason Comments Sore Throat HEADACHE Encounter Details Date Type Department Care Team Description 05/25/2011 Office Visit [facility] Angelique Wilkinson MD Acute pharyngitis (Primary Dx); Practice [address] Reactive airway disease; [address] [place], [place] Sore throat [place], [place] [phone] Social History Tobacco Use Types Packs/Day Years [...] THROAT CULTURE ONLY (05/25/2011 2:07 PM CDT) [employer] Method Time Signature Grp A Culture Negative NEG [employer] CompanyFORT DEFI[facility] INDIAN HOSPITALThinkUp Final Specimen Anatomical Collection Method Collection Time Receive d Time (Source) Location / / Volume Laterality 05/25/2011 2:07 PM 1 2:24 CDT PM CDT Angelique Wilkinson MD LAB_1 Performing Organization Address City/[facility] Phon e Number Skipjump [phone] [facility]ALS[facility] [address] [place] [phone] STREP GRP A, RAPID SCREEN (05/25/2011 2:07 PM CDT) [employer] Method Time Signature Grp A Rapid Negative NEG [facility] Screen Specimen Anatomical Collection Method Collection Time Receive d Time (Source) Location / / Volume Laterality 05/25/2011 2:07 PM 1 2:24 CDT PM CDT Angelique Wilkinson MD LAB_1 Performing Organization Address City/[facility] Phon e Number [employer]jump [phone] [facility] [address] [place] [address] documented in this encounter Visit Diagnoses Diagnosis Acute pharyngitis - Primary Reactive airway disease (HRC) Unspecified asthma Sore throat Acute pharyngitis documented in this encounter Care Teams Chief Environmental Commitment Officer Relationship Specialty Start Date End Date Heydi Santana PA-C PCP - General 11/14/10 [address] [place] [address] documented as of this encounter
--- OUTSIDE RECORDS SUMMARY | 2022-07-19 07:42 | XMS_ITS | Clinical Summary ---
:1990 Author Organization [employer] [facility] [place] [address] Care Team Providers Name Role Phone Genny Lazo MD Primary Care Provider [phone] Allergies No known active allergies Medications [...] Father Premature CHD (under age 60) Father MA Allergies Mother Hypertension Mother Allergies Sister 4 [...] uts 05m/ lb 9.2 oz) Delivery Location: [facility] Comments: Induced preeclampsia Current OB Episode Summary Episode Dates Estimated Date of Pregravid Weight TWG (As of ) Delivery 04/04/2022 - Present Unknown (07/19/2022) Last Filed Vital Signs Vital Sign Reading [...] Height 152.4 cm (5') 09/23/2015 2:13 PM LEARNING DESIGNER Body Mass Index 31.05 09/23/2015 2:13 PM LEARNING DESIGNER Plan of Treatment Upcoming Encounters Date Type Specialty Care Team Description 08/14/2022 Hospital Encounter Chekih Gautam M D Health Maintenance Due Date [...] TASHI AKINS MA 2012-Present [address] [place] [address] (Home) [place], [place] [phone] (Work) Lulu Mata Personal/Family Self [address] (Home) [place], [place] [phone] (Work) Advance Directives Latest Code Status on File Code Status Date Activated Date Inactivated Comments Full Code 12/05/2012 6:17 AM 12/07/2012 9:39 PM Full Code 12/05/2012 1:03 AM 12/05/2012 6:17 AM Full Code 12/03/2012 4:10 PM 12/05/2012 1:03 AM Full Code 11/30/2012 9:24 PM 12/01/2012 3:09 AM Full Code 11/30/2012 9:03 PM 11/30/2012 9:24 PM Care Teams Third Loader Relationship Specialty Start Date End Date Genny Lazo MD PCP - General Family Practice 07/02/12 [address] [address] [place] [address] (work)
--- OUTSIDE RECORDS SUMMARY | 2022-07-19 07:42 | XMS_ITS | Encounter Summary ---
:1990 Author Organization [facility] Address [address], [place] [address] Care Team Providers Name Role Phone Heydi Santana PA-C Primary Care Provider [phone] Encounter Details Date Type Department Care Team Description 02/20/2011 PN Conversion Only [place] [facility] Jose Carlos Aguirre MD [facility] [address] [facility] [address] [facility] [address] [place], [place] [address] [place], [place] [phone] (Wo rk) Social History Tobacco Use Types Packs/Day Years Used Date Smoking Tobacco: Never Alcohol Use Standard Drinks/Week Comments No 0 (1 standard drink = 0.6 oz pure alcoho l) Sex Assigned at Date Recorded Not on file documented as of this encounter Plan of Treatment Not on filedocumented as of this encounter Visit Diagnoses Not on filedocumented in this encounter Care Teams Dividend Clerk Relationship Specialty Start Date End Date Heydi Santana PA-C PCP - General 11/14/10 [address] [place], [place] [address] documented as of this encounter
--- OUTSIDE RECORDS SUMMARY | 2022-07-19 07:43 | XMS_ITS | Encounter Summary ---
:1990 Author Organization [facility] Address [address] [place] [address] Care Team Providers Name Role Phone Ben Arce M.D. Primary Care Provider Reason for Visit Reason Comments Routine Visit 20weeks Outpatient (Routine) - Authorized Specialty Diagnoses / Procedures Referred By Contact Refer red To Contact Obstetrics and Cheikh Gautam [facility] Gynecology Minoo Referral ID Status Reason Start Date Expiration Date Visits V isits Requested Authorized [id number] Authorized 12/20/2021 12/20/2022 15 15 Encounter Details Date Type Department Care Team Description 03/27/2022 Routine Department of Cheikh Gautam k (HCC) (Primary Dx); Obstetrics and Minoo Garcia Encounter For Supervision Of Normal Unspecified Trimester (HCC) Gynecology in [place], [place] [address] [place] [address] Social History Tobacco Use Types Packs/Day Years [...] do you attend hinduism or Never 2021 yazidi services? Do you [...] Date Recorded Female 12/02/2021 5:19 PM BOAT TESTER documented as of this encounter Last [...] -Gonorhrea/chlamydia urine today -Patient is transferring to [place] because it is closer -Problem list updated [...] Vaccinations: COVID complete but needs booster/Flu declines Lawyer: Pap NIL w/ neg HPV 11/2021 Aneuploidy [...] she told me she is transferring to [place] because it is closer. documented in this [...] M.D. LAB URINE ORDERABLES Performing Organization Address City/[facility]/ZIP Code Phon e Number [place] [address] [address] [place], [place] [address] [place] NPRC[place] [id number] [address] ALT (Alanine Aminotransferase) (03/31/2022 5:31 PM CDT) Patholo gist Method Time Signature Alanine 10 7 - 45 03/31/2022 NPRG Aminotransferase U/L 5:59 PM CDT (ALT), P Specimen Anatomical Collection Method Collection Time Receive d Time (Source) Location / / Volume Laterality Blood (Blood, 03/31/2022 5:31 PM 03/31/20 5:34 Venous) CDT PM CDT Cheikh Gautam M.D. LAB BLOOD ADD-ON Performing Organization Address City/[facility] Phon e Number [address] [address] [place] [facility] [place] [id number] [address] AST (Aspartate Aminotransferase) (03/31/2022 5:31 PM CDT) [facility] Method Time Signature Aspartate 13 8 - 43 03/31/2022 NPR[facility] Aminotransferase U/L 5:59 PM CDT (AST), P Specimen Anatomical Collection Method Collection Time Receive d Time (Source) Location / / Volume Laterality Blood (Blood, 03/31/2022 5:31 PM 03/31/20 22 5:34 Venous) CDT PM CDT Cheikh Gautam M.D. LAB BLOOD ADD-ON Performing Organization Address City/[facility]/ZIP Code Phon e Number [place] [address] [address] [place], [place] [address] [place] [facility] [place] [id number] [address] (ABNORMAL) Creatinine with Estimated GFR (03/31/2022 5:31 PM CDT) Analysis Performed At [facility] logist Time Signature Creatinine 0.58 (L) 0.59 - 03/31/2022 NPRG 1.04 mg/dL 5:59 PM CDT eGFR-Black/Afri >90 >=60 03/31/2022 NPRG can Latvian mL/min/BSA 5:59 PM CDT Comment: ----ADDITIONAL INFORMATION---- [...] M.D. LAB BLOOD ADD-ON Performing Organization Address City/[facility] Phon e Number [facility]- [address] [place] [address] [place] [address] [place] [address] Chlamydia / Gonorrhoeae Amplified RNA (03/27/2022 10:42 AM CDT) [facility] gist Method Time Signature Source [...] - GENERAL O RDERABLES Performing Organization Address City/[facility]/ZIP Code Phon e Number [facility]- [address] [place] [address] [place] [address] System in [place] [address] [facility] documented in this encounter Visit Diagnoses Diagnosis High Risk (HCC) - Primary Encounter For Supervision Of Normal Preg roberta Unspecified Trimester (HCC) documented in this encounter Additional Health Concerns Assessment Noted Time PHQ-9 Depression Total Score: 4 12/20/2021 10:52 AM CS T documented as of this encounter Care Teams Salesperson Surgical Appliances Relationship Specialty Start Date End Date Ben Arce M.D. PCP - General Family Medicine 01/13/[address] [place] [address] documented as of this encounter
--- OUTSIDE RECORDS SUMMARY | 2022-07-19 07:43 | XMS_ITS | Encounter Summary ---
:1990 Author Organization [employer] Address [address], [place] [address] Care Team Providers Name Role Phone Unassigned, Provider Primary Care Provider Unavailable Reason for Visit Reason Comments SORE THROAT, cough, chest cold Encounter Details Date Type Department Care Team Description 10/19/2009 Office Visit Urgent Care [facility] axillary Sinusitis (Primary Dx); [place] Acute Pharyngitis [address] [place], [place] [address] Social History Tobacco Use Types Packs/Day Years Used Date Smoking Tobacco: Never Assessed Sex Assigned at Date Recorded Not on file documented as of this encounter Last Filed Vital Signs Vital Sign Reading Time Taken Comments Blood Pressure 144/96 10/19/2009 7:00 PM PREDICTIVE MAINTENANCE TECHNICIAN Pulse 78 10/19/2009 7:00 PM PREDICTIVE MAINTENANCE TECHNICIAN Temperature 37.2 ??C (98.9 ??F) 10/19/2009 7:00 PM PREDICTIVE MAINTENANCE TECHNICIAN Respiratory Rate 18 10/19/2009 7:00 PM PREDICTIVE MAINTENANCE TECHNICIAN Oxygen Saturation - - Inhaled Oxygen Concentration - - Weight 64.6 kg (142 lb 6 oz) 10/19/2009 7:00 PM PREDICTIVE MAINTENANCE TECHNICIAN Height - - Body Mass Index - - documented in this encounter Patient Instructions Patient InstructionsRyan Townsend - 10/19/2009 8:00 PM CST [facility] Sinusitis sheet given, emphasized saline rinses. Neti pot info and discussion given. ICTIVE MAINTENANCE TECHNICIAN documented in this encounter Progress Notes Xochilt Enriquez RN - 10/21/2009 6:14 PM PREDICTIVE MAINTENANCE TECHNICIAN Quick Note: Strep culture results noted: Negative Nita Enriquez RN ICTIVE MAINTENANCE TECHNICIAN Ryan Townsend - 10/19/2009 7:28 PM CST [...] to improve as anticipated. Ryan Townsend MD ICTIVE MAINTENANCE TECHNICIAN documented in this encounter Plan of Treatment Not on filedocumented as of this encounter Procedures Procedure Name Priority Date/Time Associated Diagnosis Comme nts STREP GRP A, RAPID Waiting 10/19/2009 7:18 PM Acute Pharyngiti s Results for this SCREEN PREDICTIVE MAINTENANCE TECHNICIAN procedure are i n the results section. STREP GRP A, THROAT Routine 10/19/2009 7:18 PM Acute Pharyngit is Results for this CULTURE ONLY PREDICTIVE MAINTENANCE TECHNICIAN procedure are i n the results section. documented in this encounter Results STREP GRP A, THROAT CULTURE ONLY (10/19/2009 7:18 PM PREDICTIVE MAINTENANCE TECHNICIAN) Patholo gist Method Time Signature Grp A Culture Negative NEG [facility] Final Specimen Anatomical Collection Method Collection Time Receive d Time (Source) Location / / Volume Laterality 10/19/2009 7:18 PM 9 7:22 PREDICTIVE MAINTENANCE TECHNICIAN PM PREDICTIVE MAINTENANCE TECHNICIAN Ryan Townsend MD LAB_1 Performing Organization Address [facility]/ZIP [facility] Phon e Number [facility] [phone] [facility] [address] [address] STREP GRP A, RAPID SCREEN (10/19/2009 7:18 PM PREDICTIVE MAINTENANCE TECHNICIAN) [facility] gist Method Time Signature Grp A Rapid Negative NEG [facility] Screen Specimen Anatomical Collection Method Collection Time Receive d Time (Source) Location / / Volume Laterality 10/19/2009 7:18 PM 9 7:22 PREDICTIVE MAINTENANCE TECHNICIAN PM PREDICTIVE MAINTENANCE TECHNICIAN Ryan Townsend MD LAB_1 Performing Organization Address [facility] Phon e Number [facility] [phone] [phone] documented in this encounter Visit Diagnoses Diagnosis Acute maxillary sinusitis - Primary Acute pharyngitis documented in this encounter Care Teams Tombstone Carver Relationship Specialty Start Date End Date Unassigned, Provider PCP - General 08/17/09 01/16/[address] [place] [address] documented as of this encounter
--- OUTSIDE RECORDS SUMMARY | 2022-07-19 07:43 | XMS_ITS | Encounter Summary ---
:1990 Author Organization [facility] Address [address] [address] Care Team Providers Name Role Phone Heydi Santana PA-C Primary Care Provider [phone] Encounter Details Date Type Department Care Team Description 11/02/2004 PN Conversion Only CONV [id number] Social History Tobacco Use Types Packs/Day Years Used Date Smoking Tobacco: Never Assessed Sex Assigned at Date Recorded Not on file documented as of this encounter Plan of Treatment Not on filedocumented as of this encounter Visit Diagnoses Not on filedocumented in this encounter Care Teams Platform Material Handling Supervisor Relationship Specialty Start Date End Date Heydi Santana PA-C PCP - General 11/14/10 [address] [place] [address] documented as of this encounter
--- OUTSIDE RECORDS SUMMARY | 2022-07-19 07:43 | XMS_ITS | Encounter Summary ---
:1990 Author Organization [facility] Address [address] [place] [address] Care Team Providers Name Role Phone Heydi Santana Jaquelin RENNER Primary Care Provider [phone] Encounter Details Date Type Department Care Team Description 03/26/2009 PN Conversion Only RESERVE CONVERSI ON Arturo Aguirre MD [address] [place] [address] [place] [address] (Wo rk) Social History Tobacco [...] 3:15 PM CDT) Analysis Performed At [facility] Time Signature Strep Group A Negative Negative [...] Rapid Strep Follow up Culture ? Collected: ??[id number] ??[id number] Source: Throat ?Processed: ??[id number] ??[id number] ? 1B Final Report ------ ?[id number] ??[id number] No beta hemolytic Strep group A isolated . Specimen (Source) Anatomical Collection Method Collection Time Re ceived Time Location / / Volume Laterality 03/26/2009 3:15 PM CDT Arturo Aguirre MD LAB_1 Performing Organization Address City/State/ZIP Code Phon e Number [facility] CONVERSION documented in this encounter Visit Diagnoses Not on filedocumented in this encounter Care Teams Reconciler Relationship Specialty Start Date End Date Heydi Santana PA-C PCP - General 11/14/10 [address] [place], [place] [address] documented as of this encounter
--- OUTSIDE RECORDS SUMMARY | 2022-07-19 07:43 | XMS_ITS | Encounter Summary ---
:1990 Author Organization [facility] Address [address] [place] [address] Care Team Providers Name Role Phone Heydi Santana Jaquelin RENNER Primary Care Provider [phone] Encounter Details Date Type Department Care Team Description 10/04/2004 PN Conversion Only PRIOR BULLARD CONVERSIO N Patito Jorge, [address] APRN, BONDING MOLDER [address] [place] [address] [address] [place], [place] [address] Social History Tobacco Use Types Packs/Day Years Used Date Smoking Tobacco: Never Assessed Sex Assigned at Date Recorded Not on file documented as of this encounter Plan of Treatment Not on filedocumented as of this encounter Procedures Procedure Name Priority Date/Time Associated Diagnosis Comme nts STREP GROUP A Routine 10/04/2004 3:11 PM Results for this ANTIGEN TEST GIRLS TENNIS COACH procedure are i n the results section. BETA STREP FOLLOWUP Routine 10/04/2004 3:11 PM Re sults for this GIRLS TENNIS COACH procedure are i n the results section. documented in this encounter Results Strep Group A Antigen Test (10/04/2004 3:11 PM GIRLS TENNIS COACH) Analysis Performed At Patho logist Time Signature Strep Group A Negative Negative [facility] CONVERSION Antigen Test Comment: Culture to follow. Specimen (Source) Anatomical Collection Method Collection Time Re ceived Time Location / / Volume Laterality 10/04/2004 3:11 PM GIRLS TENNIS COACH Patito Jorge APRN, BONDING MOLDER LAB_1 Performing Organization Address City/State/ZIP Code Phon e Number [facility] CONVERSION Beta Strep Followup (10/04/2004 3:11 PM GIRLS TENNIS COACH) P athologist Signature Strep Screen SEE TEXT [facility] CONVERSION Comment: Patient: DILLAN MATA Rapid Strep Follow up Culture @ ? Collected: ??[id number] ??[id number] Source: Throat ?Processed: ??[id number] ??[id number] Final Report ------ ?[id number] ??[id number] No beta hemolytic Strep group A isolated . @ = Rapid F/U Cult Performed at ??[address] [place], [place] ?[address] Specimen (Source) Anatomical Collection Method Collection Time Re ceived Time Location / / Volume Laterality 10/04/2004 3:11 PM GIRLS TENNIS COACH Patito Jorge YARN CLEANER, BONDING MOLDER LAB_1 Performing Organization Address City/State/ZIP Code Phon e Number [facility] CONVERSION documented in this encounter Visit Diagnoses Not on filedocumented in this encounter Care Teams Indirect Fire Infantryman Relationship Specialty Start Date End Date Heydi Santana PA-C PCP - General 11/14/10 [address] [place] [address] documented as of this encounter
--- OUTSIDE RECORDS SUMMARY | 2022-07-19 07:43 | XMS_ITS | Encounter Summary ---
:1990 Author Organization [employer] Address [address] [place] [address] Care Team Providers Name Role Phone Joel Anguiano MD Primary Care Provider Reason for Visit Reason Comments SKIN PROBLEM MOLE under rt arm Encounter Details Date Type Department Care Team Description 06/30/2010 Office Visit [facility] Sheng Leblanc D ermatitis (Primary Dx); Medicine MD Gerardo [address] [place], [place] [address] [place], [place] [phone] Social History Tobacco Use Types Packs/Day Years [...] skin documented in this encounter Care Teams Intelligence Senior Sergeant Relationship Specialty Start Date End Date Joel Anguiano MD PCP - General 01/17/10 11/13/10 [address] [place] [address] documented as of this encounter
--- OUTSIDE RECORDS SUMMARY | 2022-07-19 07:43 | XMS_ITS | Encounter Summary ---
:1990 Author Organization [facility] Address [address] [place] [address] Care Team Providers Name Role Phone Ben Arce M.D. Primary Care Provider Reason for Visit Reason Comments Decreased Movement Other Back pain Auth/Cert Specialty Diagnoses / Procedures Referred By Contact Refer red To Contact Diagnoses Procedures Referral ID Status Reason Start Date Expiration Date Visits Requ ested Visits Authorized [id number] 1 1 Encounter Details Date Type Department Care Team Description 07/12/2022 Hospital Encounter [facility] Rylie Mcdowell Decrease d [facility] [address] [facility] Trimester Single Floor [place], [place] Gestation (HCC) [address] [place] [address] [[id number] [place], [place] [phone] (ICD-10-CM)] [phone] (Work) (Primary Dx) [phone] Social History Tobacco Use Types Packs/Day Years [...] do you attend adventism or Never 2021 baptism services? 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 Preparing for Your Experience (Botswanan) labor (Botswanan)documented in this encounter Medications at Time of [...] arrival. Status update given to MD by show card writer andper MD pt is able to discharge [...] Negative Negative mg/dL 07/12/2022 7:04 PM CDT [facility] MANA[facility]ERS RG Ketones, QI(U) Negative Negative mg/dL 07/12/2022 7:04 PM C DT NPRG Bilirubin Negative Negative 07/12/2022 7:04 PM CDT NPRG pH 6.0 5.0 - 8.0 07/12/2022 7:04 PM CDT NPRG Specific [place] >=1.030 1.001 - 1.035 07/12/2022 7:04 PM [...] Cells 11-20 /hpf 07/12/2022 7:04 PM CDT CASE MANA[facility] RG Bacteria Present (A) None Seen 07/12/2022 7:04 PM CDT NPRG Specimen Anatomical Collection Method Collection Time Receive d Time (Source) Location / / Volume Laterality Urine (Urine, 07/12/2022 6:46 PM 07/12/20 6:55 Midstream) CDT PM CDT Rylie Mcdowell M.D. LAB URINE ORDERABLES Performing Organization Address City/State/ZIP Code Phon e Number [facility]- [address] [place], [place] [address] [place] [address] [place] [address] [facility] [address] [place] documented in this encounter Visit Diagnoses Diagnosis [...] as of this encounter Care Teams Vp Delivery Relationship Specialty Start Date End Date Ben Arce M.D. PCP - General Family Medicine 01/13/[address] [place] [address] documented as of this encounter
--- OUTSIDE RECORDS SUMMARY | 2022-07-19 07:43 | XMS_ITS | Encounter Summary ---
:1990 Author Organization [facility] Address [address] [place] [address] Care Team Providers Name Role Phone Ben Arce M.D. Primary Care Provider Reason for Visit Reason Comments Vomiting During Auth/Cert Specialty Diagnoses / Procedures Referred By Contact Refer red To Contact Diagnoses Procedures Referral ID Status Reason Start Date Expiration Date Visits Requ ested Visits Authorized [id number] 1 1 Encounter Details Date Type Department Care Team Description 06/12/2022 [facility], [address] [facility] Second [place], [place] [address] [place] [address] [place], [place] [phone] (Wo rk) [address] [phone] Social History Tobacco Use Types Packs/Day Years [...] at Date Recorded Female 12/02/2021 5:19 PM MARKING CLERK documented as of this encounter Last [...] appointment on Sunday with her PCP in [place]. Education provided on staying hydrated and how [...] Organization Address City/State/ZIP Code Phon e Number [facility]- [address] [place], [place] [address] [place] [facility] NPRG [facility] [place] [address] [facility] [address] [facility] documented in this encounter Visit Diagnoses Not on filedocumented in this encounter Additional Health Concerns Assessment Noted Time PHQ-9 Depression Total Score: 4 12/20/2021 10:52 AM CS T documented as of this encounter Care Teams Coffee Weigher Relationship Specialty Start Date End Date Ben Arce M.D. PCP - General Family Medicine 01/13/[address] [place] [address] documented as of this encounter
--- OUTSIDE RECORDS SUMMARY | 2022-07-19 07:43 | XMS_ITS | Encounter Summary ---
:1990 Author [facility] Address [address] [place] [address] Care Team Providers Name Role Phone Heydi Santana Jaquelin RENNER Primary Care Provider Encounter Details Date Type Department Care Team Description 11/17/2003 PN [facility] Soumya Sorenson MD [place] [address] [facility] [address] [place] [address] [phone] Social History Tobacco Use Types Packs/Day Years Used Date Smoking Tobacco: Never Assessed Sex Assigned at Date Recorded Not on file documented as of this encounter Progress Notes Soumya Sorenson MD - 11/17/2003 12:01 AM CST Progress Notes signed by Soumya Sorenson MD at 06/01/048 Author: Soumya Sorenson MD Service: (none) Author Type: Physician Filed: 02/09/11 1824 Note Time: 11/17/03 0001 Status: Signed Superintendent Meters: Soumya Sorenson MD (Physician) NAME: DILLAN MATA MR: [id number] ACCT: [id number] VISIT: [id number] DICTATING CLINICIAN: SOUMYA SORENSON MD JOB: [id number] CLINIC PROGRESS NOTE DATE OF VISIT: 11/17/2003 [...] Well-developed, well-nourished female in no acute distress. [id number] C: 12/01/03 11:11 DOCUMENT: [id number] documented in this encounter Plan of Treatment Not on filedocumented as of this encounter Visit Diagnoses Not on filedocumented in this encounter Care Teams Behavioral Therapist Relationship Specialty Start Date End Date Heydi Santana PA-C PCP - General 11/14/10 [address] [place] [address] documented as of this encounter
--- OUTSIDE RECORDS SUMMARY | 2022-07-19 07:43 | XMS_ITS | Encounter Summary ---
:1990 Author [facility] Address [address], [place] [address] Care Team Providers Name Role Phone MaxHeydi christensen Jaquelin RENNER Primary Care Provider [phone] Encounter Details Date Type Department Care Team Description 10/04/2004 [facility] Patito Castillo APRN, [address] [place] [address] [phone] [place], [place] [address] Social History Tobacco Use Types Packs/Day Years Used Date Smoking Tobacco: Never Assessed Sex Assigned at Date Recorded Not on file documented as of this encounter Progress Notes Patito Jorge - 10/04/2004 12:01 AM CST Progress Notes signed by Patito Jorge APRN, SKIN LAP BONDER at 10/04/04 1502 Author: HÉCTOR Martin Service: (none) Author Type: Nurse Practitioner Filed: 02/10/11 0201 Note Time: 10/04/04 0001 Status: Signed Director Of Public Works: HÉCTOR Martin (Nurse Practitioner) Acute Clinic Visit [...] today on the Health Profile screen of [facility] Chronic Medications: None: OBJECTIVE: Vital Signs: T: [...] ~Shorthand Note completed on: 10/04/2004 2:17 PM GRINDER documented in this encounter Plan of Treatment Not on filedocumented as of this encounter Visit Diagnoses Not on filedocumented in this encounter Care Teams Hoop Coiling Machine Operator Relationship Specialty Start Date End Date Heydi Santana PA-C PCP - General 11/14/10 [address] [place] [address] documented as of this encounter
--- OUTSIDE RECORDS SUMMARY | 2022-07-19 07:43 | XMS_ITS | Encounter Summary ---
:1990 Author Organization [facility] Address [address] [place] [address] Care Team Providers Name Role Phone Unassigned, Provider Primary Care Provider Unavailable Reason for Visit Reason Comments EXAM,ROUTINE With glasses, no problems, l azy right eye Encounter Details Date Type Department Care Team Description 09/06/2009 Office Visit [facility] ConsoerYunior, Examination of Eyes and Visi on (Primary Dx); [address] OD Refractive Amblyopia; [place], [place] [address] Monocular Exotropia; [phone] Myopia; Unspecified Ast igmatism Social History Tobacco Use Types Packs/Day Years Used Date Smoking Tobacco: Never Assessed Sex Assigned at Date Recorded Not on file documented as of this encounter Patient Instructions Patient InstructionsConsoerYunior - 09/06/2009 12:08 PM CST Thank you for choosing [facility] for your eye care needs. Many [...] the clinic in the future? Appointment Center: [phone] Eye Dept: [phone] Online Services: [email or web address] For after hours care, call the CareLine at [phone] or . We look forward to taking [...] lenses. Sometimes surgery is needed or desirable. CAL DIR documented in this encounter Progress Notes Yunior Galicia - 09/06/2009 12:08 PM CST HPI Chief Complaint Patient presents with ??? EXAM,ROUTINE With glasses, no problems, lazy right eye History Reviewed Assessment Myopia Astigmatism Amblyopia Exotropia Plan Spectacle Prescription given Return to clinic in 1 year(s) for REE. Arvin Galicia, OD CAL DIR documented in this encounter Plan of Treatment Not on filedocumented as of this encounter Visit Diagnoses Diagnosis Examination of eyes and vision - Primary Refractive amblyopia Monocular exotropia Myopia Astigmatism, unspecified documented in this encounter Care Teams Vessel Welder Relationship Specialty Start Date End Date Unassigned, Provider PCP - General 08/17/09 01/16/[address] [place] [address] documented as of this encounter
--- OUTSIDE RECORDS SUMMARY | 2022-07-19 07:43 | XMS_ITS | Encounter Summary ---
:1990 Author Organization [facility] Address [address], [place] [address] Care Team Providers Name Role Phone Heydi Santana PA-C Primary Care Provider [phone] Encounter Details Date Type Department Care Team Description 03/26/2009 PN Conversion Only [place] [address] [place] [address] Social History Tobacco Use Types Packs/Day Years Used Date Smoking Tobacco: Never Assessed Sex Assigned at Date Recorded Not on file documented as of this encounter Plan of Treatment Not on filedocumented as of this encounter Visit Diagnoses Not on filedocumented in this encounter Care Teams Pressurizer Relationship Specialty Start Date End Date Heydi Santana PA-C PCP - General 11/14/10 [address] [place], [place] [address] documented as of this encounter
--- OUTSIDE RECORDS SUMMARY | 2022-07-19 07:43 | XMS_ITS | Encounter Summary ---
:1990 Author Organization [facility] Address [address] [place] [address] Care Team Providers Name Role Phone Unassigned, Provider Primary Care Provider Unavailable Reason for Visit Reason Comments ASTHMA Encounter Details Date Type Department Care Team Description 11/18/2009 Office Visit [facility] Miguelito Anguiano MD URI (Upper Medicine [address] Respiratory [address] Infection) (Primary [place], [place] [address] [place], [place] Dx) [phone] [address] Social History Tobacco Use Types Packs/Day Years Used Date Smoking Tobacco: Never Alcohol Use Standard Drinks/Week Comments No 0 (1 standard drink = 0.6 oz pure alcoho l) Sex Assigned at Date Recorded Not on file documented as of this encounter Last Filed Vital Signs Vital Sign Reading Time Taken Comments Blood Pressure 120/70 11/18/2009 2:07 PM VENDING MACHINE HOST/HOSTESS Pulse 72 11/18/2009 2:07 PM VENDING MACHINE HOST/HOSTESS Temperature - - Respiratory Rate 18 11/18/2009 2:07 PM VENDING MACHINE HOST/HOSTESS Oxygen Saturation - - Inhaled Oxygen Concentration - - Weight 65.3 kg (144 lb) 11/18/2009 2:07 PM VENDING MACHINE HOST/HOSTESS Height - - Body Mass Index - [...] to clinic p.r.n. Joel Anguiano MD 11/18/2009 ING MACHINE HOST/HOSTESS documented in this encounter Plan of Treatment Not on filedocumented as of this encounter Visit Diagnoses Diagnosis URI (upper respiratory infection) - Prim prosper Acute upper respiratory infections of un specified site documented in this encounter Care Teams Change Attendant Relationship Specialty Start Date End Date Unassigned, Provider PCP - General 08/17/09 01/16/[address] [place] [address] documented as of this encounter
--- OUTSIDE RECORDS SUMMARY | 2022-07-19 07:43 | XMS_ITS | Encounter Summary ---
:1990 Author Organization [facility] Address [address] [facility] [place] [address] Care Team Providers Name Role Phone Heydi Santana PA-C Primary Care Provider Encounter Details Date Type Department Care Team Description 09/22/2003 PN Conversion Only [facility] Ayaan Osorio [facility] [address] [facility] [address] [facility]. [facility] [address] [place] [address] [phone] Social History Tobacco Use Types Packs/Day Years Used Date Smoking Tobacco: Never Assessed Sex Assigned at Date Recorded Not on file documented as of this encounter Progress Notes Maryana Osorio - 09/22/2003 12:01 AM CST Progress Notes signed by Maryana Osorio MD at 09/23/03 0756 Author: Maryana Osorio MD Service: (none) Author Type: Physician Filed: 02/09/11 1721 Note Time: 09/22/03 0001 Status: Signed Fairground Operator: Maryana Osorio MD (Physician) NAME: DILLAN MATA MR: [id number] ACCT: [id number] VISIT: [id number] DICTATING CLINICIAN: MARYANA OSORIO MD JOB: [id number] CLINIC PROGRESS NOTE DATE OF VISIT: 09/22/2003 [...] needed and follow up p.r.n. TT: CT: [id number] C: 09/23/03 05:53 DOCUMENT: [id number] Patito Craig - 02/19/2002 12:01 AM CDT Progress Notes signed by Patito Jorge APRN, SQL SERVER ARCHITECT at 03/11/02 1009 Author: HÉCTOR Martin Service: (none) Author Type: Nurse Practitioner Filed: 02/09/11 0554 Note Time: 02/19/02 0001 Status: Signed Fairground Operator: HÉCTOR Martin (Nurse Practitioner) IMPRESSION: URI. SUBJECTIVE: [...] symptomatic treatment. Follow up p.r.n. TT: CT: [id number] C: DOCUMENT: [id number] Maryana Osorio - 12/23/1998 12:01 AM CST Progress Notes signed by Maryana Osorio MD at 01/04/99 1608 Author: Maryana Osorio MD Service: (none) Author Type: Physician Filed: 02/08/11 0924 Note Time: 12/23/98 0001 Status: Signed Fairground Operator: Maryana Osorio MD (Physician) IMPRESSION: Upper respiratory [...] put on Trimox 250 chewables t.i.d. stg ING TECHNICIAN Maryana Osorio - 12/10/1997 12:01 AM CST Progress Notes signed by Maryana Osorio MD at 12/17/972053 Author: Maryana Osorio MD Service: (none) Author Type: Physician Filed: 02/08/116 Note Time: 12/10/97 0001 Status: Signed Fairground Operator: Maryana Osorio MD (Physician) IMPRESSION: Serous otitis [...] days and will followup here pemi carey ING TECHNICIAN Theodore Garcia MD - 03/02/1997 12:01 AM CDT Progress Notes signed by Theodore Garcia MD at 03/18/97 7733 Author: Theodore Garcia MD Service: (none) Author Type: Physician Filed: 02/07/11 3080 Note Time: 03/02/97 0001 Status: Signed Fairground Operator: Theodore Garcia MD (Physician) IMPRESSION: Right otitis [...] Discussed side effects. Recheck in two weeks. [facility] documented in this encounter Plan of Treatment Not on filedocumented as of this encounter Procedures Procedure Name Priority Date/Time Associated Diagnosis Comme nts XR FOOT RT 3+ VIEWS Routine 09/22/2003 3:12 PM Re sults for this HEATING TECHNICIAN procedure are i n the results section. STREP GROUP A Routine 02/19/2002 4:43 PM Results for this ANTIGEN TEST CDT procedure are i n the results section. BETA STREP FOLLOWUP Routine 02/19/2002 4:43 PM Re sults for this CDT procedure are i n the results section. documented in this encounter Results XR Foot Rt 3+ Views (09/22/2003 3:12 PM HEATING TECHNICIAN) Anatomical Region Laterality Modality Lower Extremity, Foot Other Specimen (Source) Anatomical Location Collection Method / Collectio n Time Received Time / Laterality Volume Narrative 09/22/2003 3:12 PM HEATING TECHNICIAN Findings: BN1 No radiographic evidence of bone [...] Laterality 02/19/2002 4:43 PM CDT Patito Jorge CITRUS FRUIT PACKER, SQL SERVER ARCHITECT LAB_1 Performing Organization Address City/State/ZIP Code Phon e Number HP CONVERSION Beta Strep Followup (02/19/2002 4:43 PM CDT) P athologist Signature Strep Screen SEE TEXT HP CONVERSION Comment: Patient: DILLAN MATA Rapid Strep Follow up Culture @ ? Collected: ?1642 Source: Throat ?Processed: ?1643 ? 14 Final Report ------ ?[id number] ??0735 No beta hemolytic Strep group A isolated . @ = Rapid F/U Cult Performed at ??[address], [place], [place] ?[address] Specimen (Source) Anatomical Collection Method Collection Time Re ceived Time Location / / Volume Laterality 02/19/2002 4:43 PM CDT Patito Jorge CITRUS FRUIT PACKER, SQL SERVER ARCHITECT LAB_1 Performing Organization Address City/State/ZIP Code Phon e Number HP CONVERSION documented in this encounter Visit Diagnoses Not on filedocumented in this encounter Care Teams Junior Accounting Clerk Relationship Specialty Start Date End Date Heydi Santana PA-C PCP - General 11/14/10 [address] [place], [place] [address] documented as of this encounter
--- OUTSIDE RECORDS SUMMARY | 2022-07-19 07:43 | XMS_ITS | Encounter Summary ---
:1990 Author Organization [facility] Address [address] [place] [address] Care Team Providers Name Role Phone Ben Arce M.D. Primary Care Provider Encounter Details Date Type Department Care Team Description 03/31/2022 Hospital Encounter Department of Cheikh Gautam Laboratory Medicine Minoo Garcia ([facility]) in [place], [place] [address] [place] [phone] Social History Tobacco Use Types Packs/Day Years [...] do you attend bahai or Never 2021 advent services? Do you [...] at Date Recorded Female 12/02/2021 5:19 PM ACOUSTIC WARFARE ANALYST documented as of this encounter Medications at [...] [facility]/ZIP Code Phon e Number [place] [address] [place], [place] [address] [place] [facility] [place] [id number] ALT (Alanine Aminotransferase) (03/31/2022 5:31 [...] ADD-ON Performing Organization Address City/[facility] Code Phon e Number [place] [address] [place], [place] [address] [place] [facility] [place] [id number] AST (Aspartate Aminotransferase) (03/31/2022 5:31 PM CDT) [facility] Method Time Signature Aspartate 13 8 - 43 03/31/2022 NPRG Aminotransferase U/L 5:59 PM CDT (AST), P Specimen Anatomical Collection Method Collection Time Receive d Time (Source) Location / / Volume Laterality Blood (Blood, 03/31/2022 5:31 PM 03/31/20 22 5:34 Venous) CDT PM CDT Cheikh Gautam M.D. LAB BLOOD ADD-ON Performing Organization Address City/[facility]/ZIP Code Phon e Number [place] [address] [place], [place] [address] [place] [facility] [place] [id number] (ABNORMAL) Creatinine with Estimated GFR (03/31/2022 5:31 PM CDT) Analysis Performed At Patho logist Time Signature Creatinine 0.58 (L) 0.59 - 03/31/2022 NPRG 1.04 mg/dL 5:59 PM CDT eGFR-Black/Afri >90 >=60 03/31/2022 NPRG can [place] mL/min/BSA 5:59 PM CDT Comment: ----ADDITIONAL INFORMATION---- [...] e Number [facility]- [address] [place], [place] [address] [place] [facility] [place] [address] [facility] [address] [place] documented in this encounter Visit Diagnoses Diagnosis High Risk (HCC) documented in this encounter Additional Health Concerns Assessment Noted Time PHQ-9 Depression Total Score: 4 12/20/2021 10:52 AM CS T documented as of this encounter Care Teams Typists Supervisor Relationship Specialty Start Date End Date Ben Arce M.D. PCP - General Family Medicine 01/13/[address] [place] [address] documented as of this encounter
--- OUTSIDE RECORDS SUMMARY | 2022-07-19 07:43 | XMS_ITS | Encounter Summary ---
:1990 Author [facility] Address [address] [place] [address] Care Team Providers Name Role Phone Joel Anguiano MD Primary Care Provider Reason for Visit Reason Comments Ear Pain SORE THROAT, HEADACHE Encounter Details Date Type Department Care Team Description 03/11/2010 Office Visit [facility] Benjamin Zuniga i, MD Acute Sinusitis, Unspecified (Primary Dx ); Medicine [address] Reactive Airway Disease [address] [place], [place] [address] [phone] Social History Tobacco Use Types Packs/Day Years [...] as needed for pain or acetaminophen 325 qm6303 mg every four hours. To thin and wash out thick mucus and soothe inflamed nasal tissues use salt water (saline) nasal spray (such as Blount). Two sprays each side, wait 20 to [...] designed for nasal irrigation - purchase from [employer] or [employer]) in a similar manner described above. This is the easiest and most comfortable method. Use saline nasal irrigation once a day to maintain health of the nasal passages, and two or more times a day for active treatment of symptoms. With a little practice, this technique becomes almost as quick and easy as brushing your teeth. ?? 2001 [employer]. documented in this encounter Progress Notes Rox [...] asthma documented in this encounter Care Teams Coater Operator Relationship Specialty Start Date End Date Joel Anguiano MD PCP - General 01/17/10 11/13/10 [address] [place] [address] documented as of this encounter
--- OUTSIDE RECORDS SUMMARY | 2022-07-19 07:43 | XMS_ITS | Encounter Summary ---
:1990 Author Organization [facility] Address [address] [place] [address] Care Team Providers Name Role Phone Ben [...] Expiration Date Visits Requ ested Visits Authorized [id number] 1 1 Encounter Details Date Type Department Care Team Description 04/17/2022 Hospital Encounter [facility] Rylie Mcdowell, 23 Weeks Gestation [facility], [place] [address] [address] [place], [place] [phone] [address] (Work) [phone] Social History Tobacco Use Types Packs/Day Years [...] do you attend worship or Never 2021 yarsani services? 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 No UTC's traced via [place]. RN palpated during one episode ofuterine cramping, [...] as of this encounter Care Teams Production Control Analyst Relationship Specialty Start Date End Date Ben Arce M.D. PCP - General Family Medicine 01/13/21 [address] [place] [phone] documented as of this encounter
--- OUTSIDE RECORDS SUMMARY | 2022-07-19 07:43 | XMS_ITS | Encounter Summary ---
:1990 Author Organization [facility] Address [address], [place] [address] Care Team Providers Name Role Phone Heydi Santana PA-C Primary Care Provider [phone] Encounter Details Date Type Department Care Team Description 12/07/2003 PN Conversion Only [place] CON[facility] [address] [facility] [place] [address] Social History Tobacco Use Types Packs/Day Years Used Date Smoking Tobacco: Never Assessed Sex Assigned at Date Recorded Not on file documented as of this encounter Plan of Treatment Not on filedocumented as of this encounter Visit Diagnoses Not on filedocumented in this encounter Care Teams Water And Fire Technician Relationship Specialty Start Date End Date Heydi Santana PA-C PCP - General 11/14/10 [address] [place], [place] [address] documented as of this encounter
--- OUTSIDE RECORDS SUMMARY | 2022-07-19 07:43 | XMS_ITS | Encounter Summary ---
:1990 Author Organization [facility] Address [address] [place] [address] Care Team Providers Name Role Phone Joel Anguiano MD Primary Care Provider Reason for Visit Reason Comments CONTROL COUNSELING Encounter Details Date Type Department Care Team Description 09/27/[address] [facility] Candy Perez control Practice AZURDO (Primary Dx) [address] [facility] [place], [place] [address] [address] [phone] [place] [address] Social History Tobacco Use Types Packs/Day Years Used Date Smoking Tobacco: Never Alcohol Use Standard Drinks/Week Comments No 0 (1 standard drink = 0.6 oz pure alcoho l) Sex Assigned at Date Recorded Not on file documented as of this encounter Last Filed Vital Signs Vital Sign Reading Time Taken Comments Blood Pressure 110/82 09/27/2010 9:16 AM BREAKER MACHINE OPERATOR Pulse 76 09/27/2010 9:16 AM BREAKER MACHINE OPERATOR Temperature - - Respiratory Rate - - Oxygen Saturation - - Inhaled Oxygen Concentration - - Weight 62.1 kg (137 lb) 09/27/2010 9:16 AM BREAKER MACHINE OPERATOR Height - - Body Mass [...] change/worsen, or do not improve as expected. KER MACHINE OPERATOR documented in this encounter Progress Notes Candy [...] Apply topically. Twice daily ??? Triamcinolone Acetonide, [id number], (TRIAMCINOLONE ACETONIDE EX) cream use as needed [...] together. Candy Perez PA-C 10:39 AM 09/27/2010 KER MACHINE OPERATOR documented in this encounter Plan of Treatment Not on filedocumented as of this encounter Procedures Procedure Name Priority Date/Time Associated Diagnosis Comme nts TEST Waiting 09/27/2010 9:39 AM control Result s for this (URINE) BREAKER MACHINE OPERATOR procedure are i n the results section. documented in this encounter Results TEST (URINE) (09/27/2010 9:39 AM BREAKER MACHINE OPERATOR) Component Value Ref Test Analysis Performed At [facility] Range Method Time Signature HCG, Urine Negative [facility] Negative = <25 mIU/ml If is suspected, suggest repeat in 48-72 hours or confirm results with a quantitative hCG test. Specimen Anatomical Collection Method Collection Time Receive d Time (Source) Location / / Volume Laterality Urine specimen 09/27/2010 9:39 AM 010 9:49 (specimen) BREAKER MACHINE OPERATOR AM BREAKER MACHINE OPERATOR Candy Perez PA-C LAB_1 Performing Organization Address City/State/ZIP Code Phon e Number [facility] [phone] [facility] [address] [address] documented in this encounter Visit Diagnoses Diagnosis control - Primary Unspecified contraceptive management documented in this encounter Care Teams Slip Sheeter Relationship Specialty Start Date End Date Joel Anguiano MD PCP - General 01/17/10 11/13/10 [address] [place] [address] documented as of this encounter
--- OUTSIDE RECORDS SUMMARY | 2022-07-19 07:43 | XMS_ITS | Encounter Summary ---
:1990 Author Organization [facility] Address [address] [place] [address] Care Team Providers Name Role Phone Ben Arce M.D. Primary Care Provider Reason for Visit Reason Comments Routine Visit Patient seen in L&D yesterda y for decreased movement and spotting Outpatient (Routine) - Authorized Specialty Diagnoses / Procedures Referred By Contact Refer red To Contact Obstetrics and Cheikh Gautam [facility] Gynecology M.DMaribell Referral ID Status Reason Start Date Expiration Date Visits V isits Requested Authorized [id number] Authorized 12/20/2021 12/20/2022 15 15 Encounter Details Date Type Department Care Team Description 04/18/2022 Routine Department of Rylie Mcdowell, 23 Weeks Gestation Obstetrics and M.D. ([facility]) Gynecology in [address] (Primary Dx) [place] [address] [facility] [address] [place], [place] [phone] [address] (Work) [phone] Social History Tobacco Use Types Packs/Day Years [...] do you attend jewish or Never 2021 presybeterian services? 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 PCP - General Family Medicine 01/13/[address] [facility] [address] documented as of this encounter
--- OUTSIDE RECORDS SUMMARY | 2022-07-19 07:43 | XMS_ITS | Clinical Summary ---
:1990 Author Organization [facility] Address [address] [place] [address] Care Team Providers Name Role Phone Ben Arce M.D. Primary Care Provider Source Comments Patient records contain information from all sites at [facility]. For routine questions regarding patient records, call [phone] during business hours, M-F 8:00 AM - 5:00 PM Central Time. 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 History Of Falling [...] and Delivery Rylie Mcdowell, En counter For M.DMaribell Supervision Of Normal Unspe cified Trimester (HCC) 04/18/2022 Routine Obstetrics and Rylie Mcdowell 23 Weeks Gestation Gynecology M.D. (HCC) (Primary Dx) from Last 3 Months Immunizations Name Administration [...] Date Recorded Female 12/02/2021 5:19 PM EASEMENT WORKER Last Filed Vital Signs Vital Sign Reading [...] this topic Medical Devices Implanted Type Area Ham Sawyer Device Shelf Model / Identifier Expiration Serial [...] time period is included. Analysis Performed At [facility] Time Signature Source Urine, Urine, 07/12/2022 NPRG [...] Negative Negative mg/dL 07/12/2022 7:04 PM CDT APPRENTICE EMBALMER RG Ketones, QI(U) Negative Negative mg/dL 07/12/2022 7:04 PM C DT NPRG Bilirubin Negative Negative 07/12/2022 7:04 PM CDT NPRG pH 6.0 5.0 - 8.0 07/12/2022 7:04 PM CDT NPRG Specific [place] >=1.030 1.001 - 1.035 07/12/2022 7:04 PM [...] Cells 11-20 /hpf 07/12/2022 7:04 PM CDT APPRENTICE EMBALMER RG Bacteria Present (A) None Seen 07/12/2022 7:04 PM CDT NPRG Specimen Anatomical Collection Method Collection Time Receive d Time (Source) Location / / Volume Laterality Urine (Urine, 07/12/2022 6:46 PM 07/12/20 6:55 Midstream) CDT PM CDT Rylie Mcdowell M.D. LAB URINE ORDERABLES Performing Organization Address City/[facility]/ZIP Code Phon e Number [address] LAB NPRG [address] Glucose, POCT (06/12/2022 10:50 AM CDT) P athologist Signature Glucose, POCT, 87 70 - 140 06/12/2022 NPRG B mg/dL 10:50 AM CDT Specimen Anatomical Collection Method Collection Time Receive d Time (Source) Location / / Volume Laterality Blood 06/12/2022 10:50 06/12/2022 AM CDT 10:57 AM CDT Generic Rals LAB POCT ORDERABLES-MANUAL Performing Organization Address City/[facility]/ZIP Code Phon e Number [place] [address] [address] [place] [facility] NPR[facility] [address] Influenza A/B, SARS CoV-2, PCR, Rapid, Varies (04/28/2022 8:48 AM CDT) [facility] Method Time Signature Influenza A, Negative Negative 04/28/2022 NPRG PCR, Rapid, V 9:26 AM CDT Influenza B, Negative Negative 04/28/2022 NPRG PCR, Rapid, V 9:26 AM CDT SARS CoV-2, Undetected Undetected 04/28/2022 NPRG PCR, Rapid, V 9:26 AM CDT Comment: ----ADDITIONAL INFORMATION---- This RT-PCR test was performed using the Carissa SARS-CoV-2 and Influenza A/B Reagent assay from [employer], which has received Emergency Use Authori zation(EUA) by the U.S. Food and Drug Administration . Fact sheets for this Emergency Use Autho rization (EUA) assay can be found at the following link s: For Healthcare Providers: https://www.fda.gov/media/312060/downloa d For Patients: https://www.fda.gov/media/908778/downloa d Infl A/B, SARS CoV-2, PCR, Source Swab, Nasopharynx 04/28/2022 9:02 AM CDT NPRG Specimen Anatomical Collection Method Collection Time Receive d Time (Source) Location / / Volume Laterality Varies 04/28/2022 8:48 AM 9:02 CDT AM CDT Rylie Mcdowell M.D. LAB MICROBIOLOGY - GENERAL O RDERABLES Performing Organization Address City/State/ZIP Code Phon e Number [facility]- [address] [place], [place] [address] [place] [address] from Last 3 Months Insurance Payer Benefit Plan / Subscriber ID Effective Phone Address T ype Group Dates EMPLOYERS EMPLOYERS [id number] 2019-Pres [phone] n[address] INSURANCE INSURANCE ent [phone] [place] [address] UCARE UCARE [id number] 2022-Pres [phone] [address] HMO ent [address] [place] [address] Lulu Mata Workers Comp Self [address] (Home) [place] [address] Lulu Mata Third Alliance Party Self 1990 [address] [facility] Liability (Home) [place] [address] Care Teams Technical Report Writer Relationship Specialty Start Date End Date Ben Arce M.D. PCP - General Family Medicine 01/13/[address] [place] [phone]
--- OUTSIDE RECORDS SUMMARY | 2022-07-19 07:43 | XMS_ITS | Encounter Summary ---
:1990 Author Organization [facility] Address [address] [place] [address] Care Team Providers Name Role Phone Ben Arce M.D. Primary Care Provider Encounter Details Date Type Department Care Team Description 03/27/2022 Ancillary Procedure Department of Cheikh Gautam For Obstetrics and Minoo Garcia Supervision O f Other Gynecology in Normal [place], [place] Unspecified [address] Trimester (HCC) [place] [address] Social History Tobacco Use Types [...] do you attend christianity or Never 2021 gnosticism services? 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 PCP - General Family Medicine 01/13/21 [address] [place] [address] documented as of this encounter
--- OUTSIDE RECORDS SUMMARY | 2022-07-19 07:43 | XMS_ITS | Encounter Summary ---
:1990 Author [facility] Address [address] [address] Care Team Providers Name Role Phone Heydi Santana PA-C Primary Care Provider [phone] Encounter Details Date Type Department Care Team Description 11/13/2003 PN Conversion Only JOSEPHINE CONVERSION [address] [place] [address] Social History Tobacco Use Types Packs/Day Years Used Date Smoking Tobacco: Never Assessed Sex Assigned at Date Recorded Not on file documented as of this encounter Plan of Treatment Not on filedocumented as of this encounter Visit Diagnoses Not on filedocumented in this encounter Care Teams Fisheries Manager Relationship Specialty Start Date End Date Heydi Santana PA-C PCP - General 11/14/10 [address] [place], [place] [address] documented as of this encounter
--- OUTSIDE RECORDS SUMMARY | 2022-07-19 07:43 | XMS_ITS | Encounter Summary ---
:1990 Author Organization [facility] Address [address], [place] [address] Care Team Providers Name Role Phone Heydi Santana Jaquelin RENNER Primary Care Provider [phone] Encounter Details Date Type Department Care Team Description 03/26/2009 Office Visit [facility] Alison Aguirre MD Medicine [address] [place], [place] [phone] (Wo rk) Social History Tobacco Use Types [...] 1344 Note Time: 03/26/09 0001 Status: Signed Gettering Operator: Arturo Aguirre MD (Physician) Acute Clinic Visit [...] today on the Health Profile screen of [facility]. Chronic Medications: None. OBJECTIVE: Vital Signs: Vital Signs taken today were reviewed on the flowsheet in [employer]. General Appearance: Well-appearing Eyes: External exam is [...] PCP - General 11/14/10 [address] [place] [place] [address] documented as of this encounter
--- OUTSIDE RECORDS SUMMARY | 2022-07-19 07:43 | XMS_ITS | Encounter Summary ---
:1990 Author Organization [facility] Address [address] [place] [address] Care Team Providers Name Role Phone Ben Arce M.D. Primary Care Provider Reason for Visit Reason Comments facial pressure X 3 wks Encounter Details Date Type Department Care Team Description 07/09/2022 Office Visit Urgent Care, [facility], [facility], in [place], FATOU, C.N.P., (Samina pendleton Dx) [place] D.N.P. [address] [place] [phone] Social History Tobacco Use Types Packs/Day Years [...] do you attend christianity or Never 2021 islam services? 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 Acute Sinusitis (Telugu)documented in this encounter Progress Notes Esther Andrea, [...] electronic medical record. ALLERGIES/CONTRAINDICATIONS Allergies Allergen Reactions [place] Pollen Itching and Wheezing OBJECTIVE VITAL SIGNS [...] as of this encounter Care Teams Sales Operations Relationship Specialty Start Date End Date Ben Arce M.D. PCP - General Family Medicine 01/13/[address] [place] [phone] documented as of this encounter
--- OUTSIDE RECORDS SUMMARY | 2022-07-19 07:43 | XMS_ITS | Encounter Summary ---
:1990 Author Organization [facility] Address [address] [place] [address] Care Team Providers Name Role Phone Ben Arce M.D. Primary Care Provider Reason for Visit Reason Comments Nausea Vomiting During Auth/Cert Specialty Diagnoses / Procedures Referred By Contact Refer red To Contact Diagnoses . Procedures . Referral ID Status Reason Start Date Expiration Date Visits Requ ested Visits Authorized [id number] 1 1 Encounter Details Date Type Department Care Team Description 04/28/2022 Hospital Encounter [facility] Rylie Mcdowell Encounte r [facility] Praguolive Hennessy Supervision Of [facility], [place] [id number] [facility] Normal Floor [place], [place] Unspecified [address] [place] [address] Trimester (HCC) [place], [place] [phone] [address] (Work) [phone] Social History Tobacco Use Types Packs/Day Years [...] do you attend druze or Never 2021 latter day services? 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 Education [...] 8.0 04/28/2022 11:36 AM CDT NPRG Specific [place] 1.015 1.001 - 1.035 04/28/2022 11:36 AM [...] Code Phon e Number [facility] [address] [place], [place] [address] [place] [facility] NPRG [address] Influenza A/B, SARS CoV-2, PCR, Rapid, Varies (04/28/2022 8:48 AM CDT) [facility] Method Time Signature Influenza A, Negative Negative 04/28/2022 NPRG PCR, Rapid, V 9:26 AM CDT Influenza B, Negative Negative 04/28/2022 NPRG PCR, Rapid, V 9:26 AM CDT SARS CoV-2, Undetected Undetected 04/28/2022 NPRG PCR, Rapid, V 9:26 AM CDT Comment: ----ADDITIONAL INFORMATION---- This RT-PCR test was performed using the Carissa SARS-CoV-2 and Influenza A/B Reagent assay from [employer], which has received Emergency Use Authori zation(EUA) by the U.S. Food and Drug Administration . Fact sheets for this Emergency Use Autho rization (EUA) assay can be found at the following link s: For Healthcare Providers: https://www.fda.gov/media/607816/downloa d For Patients: https://www.fda.gov/media/917711/downloa d Infl A/B, SARS CoV-2, PCR, Source Swab, Nasopharynx 04/28/2022 9:02 AM CDT NPRG Specimen Anatomical Collection Method Collection Time Receive d Time (Source) Location / / Volume Laterality Varies 04/28/2022 8:48 AM 9:02 CDT AM CDT Rylie Mcdowell M.D. LAB MICROBIOLOGY - GENERAL O RDERABLES Performing Organization Address City/State/ZIP Code Phon e Number [facility]- [address] [place] [address] [place] [address] documented in this encounter Visit Diagnoses [...] documented as of this encounter Care Teams Top Cutter Relationship Specialty Start Date End Date Ben Arce M.D. PCP - General Family Medicine 01/13/[address] [place] [address] documented as of this encounter
--- OUTSIDE RECORDS SUMMARY | 2022-07-19 07:43 | XMS_ITS | Encounter Summary ---
:1990 Author Organization [facility] Address [address] [place] [address] Care Team Providers Name Role Phone Ben Arce M.D. Primary Care Provider Reason for Referral Outpatient (Routine) - Authorized Specialty Diagnoses / Procedures Referred By Contact Refer red To Contact Diagnoses Pain Back Pain Neck Ben Arce M.D. External, Referring [address] [place] [address] Referral ID Status Reason Start Expiration Visits Visits Date Date Requested Authorized [id number] Authorized Patient 03/01/2022 03/01/2023 1 1 Preference Reason for Visit Reason Comments Outside Order Insurance Referral Encounter Details Date Type Department Care Team Description 03/01/2022 Clinical Communication Department of Ben Arce, Outs [facility] Order Family Medicine in [place] (Insurance Referral) [place] [address] [place] [address] [facility] [address] [phone] Social History Tobacco Use Types Packs/Day Years [...] do you attend scientologist or Never 2021 anglican services? Do you belong to any clubs or No 11/20/2021 organizations such as scientologist groups, unions, [employer]Mer[employer] or athletic groups, or school groups? 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 Also faxed [facility] restricted forms for OB care [facility]. Thank you, Jossie Referrals 03/02/22 Lore called from [facility] [phone]. This referral has been processed. 03/03/22sla. Telephone Encounter - Ben Arce M.D. - 03/01/2022 3:07 PM CDT Order signed. Telephone Encounter - Jossie Ramos - 03/01/2022 2:[address] Arce, ORDER/LAB/REFERRAL REQUEST: Name of test/referral/order requested: [facility] Med [place] i [id number] Reason for request: Back and neck pain Date needed: 02/26/22 Order pended to this encounter, once signed we can submit the Restricted [facility] referral for insurance. Thank you, Jossie Referrals 03/01/22 documented in this encounter Plan of Treatment Not on filedocumented as of this encounter Visit Diagnoses Diagnosis Pain Back - Primary Pain Neck documented in this encounter Additional Health Concerns Assessment Noted Time PHQ-9 Depression Total Score: 4 12/20/2021 10:52 AM CS T documented as of this encounter Care Teams Manga Artist Relationship Specialty Start Date End Date Ben Arce M.D. PCP - General Family Medicine 01/13/[address] [place] [address] documented as of this encounter
--- OUTSIDE RECORDS SUMMARY | 2022-07-19 07:43 | XMS_ITS | Encounter Summary ---
:1990 Author Organization [facility] Address [address] [place] [address] Care Team Providers Name Role Phone Joel Anguiano MD Primary Care Provider Reason for Visit Reason Comments CONGESTION, NASAL Sore Throat EARACHE Encounter Details Date Type Department Care Team Description 04/30/2010 Office Visit [facility] Apple Sore roat (Primary Dx); [place] URI (Upper Respiratory Infec tion) [address] [place], [place] [address] Social History Tobacco Use [...] THROAT CULTURE ONLY (04/30/2010 12:27 PM CDT) [facility] Method Time Signature Grp A Culture Negative NEG [facility] Final Specimen Anatomical Collection Method Collection Time Receive d Time (Source) Location / / Volume Laterality 04/30/2010 12:27 04/30/2010 PM CDT 12:35 PM CDT Alycia Hernadez MD LAB_1 Performing Organization Address City/State/ZIP Code Phon e Number [facility] [phone] [facility] [address] [place] [address] STREP GRP A, RAPID SCREEN (04/30/2010 12:27 PM CDT) [facility] gist Method Time Signature Grp A Rapid Negative NEG [facility] Screen Specimen Anatomical Collection Method Collection Time Receive d Time (Source) Location / / Volume Laterality 04/30/2010 12:27 04/30/2010 PM CDT 12:35 PM CDT Alycia Hernadez MD LAB_1 Performing Organization Address City/State/ZIP Code Phon e Number [facility] [phone] [facility] [address] [address] documented in this encounter Visit Diagnoses Diagnosis Sore throat - Primary Acute pharyngitis URI (upper respiratory infection) Acute upper respiratory infections of un specified site documented in this encounter Care Teams Fee Clerk Relationship Specialty Start Date End Date Joel Anguiano MD PCP - General 01/17/10 11/13/10 [address] [place] [address] documented as of this encounter
--- OUTSIDE RECORDS SUMMARY | 2022-07-19 07:43 | XMS_ITS | Encounter Summary ---
:1990 Author Organization [facility] Address [address], [place] [address] Care Team Providers Name Role Phone Heydi Santana PA-C Primary Care Provider [phone] Encounter Details Date Type Department Care Team Description 10/04/2004 PN Conversion Only PRIOR FLUSH[facility] [address] [place] [address] Social History Tobacco Use Types Packs/Day Years Used Date Smoking Tobacco: Never Assessed Sex Assigned at Date Recorded Not on file documented as of this encounter Plan of Treatment Not on filedocumented as of this encounter Visit Diagnoses Not on filedocumented in this encounter Care Teams Industrial Machine System Technician Relationship Specialty Start Date End Date Heydi Santana PA-C PCP - General 11/14/10 [address] [place], [place] [address] documented as of this encounter
--- OUTSIDE RECORDS SUMMARY | 2022-07-19 07:44 | XMS_ITS | Encounter Summary ---
:1990 Author Organization [facility] Address [address] [place] [address] Care Team Providers Name Role Phone Ben Arce M.D. Primary Care Provider Encounter Details Date Type Department Care Team Description 12/20/2021 Hospital Encounter Department of Cheikh Gatuam Laboratory Medicine Minoo Garcia Supervis ion Of Other in [facility] Unspecified [address] [place] [address] Social History Tobacco Use Types Packs/Day Years [...] do you attend adventist or Never 2021 sikh services? Do you [...] at Date Recorded Female 12/02/2021 5:19 PM PRAWN TRAWLER HAND documented as of this encounter Medications at [...] Encounter For Results for this , S PRAWN TRAWLER HAND Supervision Of Other procedu re are in Normal the results Unspecified section. Trimester HIV-1/-2 AG AND AB Routine 12/20/2021 11:34 AM Encounter For R esults for this SCRN, PRAWN TRAWLER HAND Supervision Of Other proce dure are in PLASMA Normal the results Unspecified section. Trimester SYPHILIS TOTAL AB Routine 12/20/2021 11:34 AM Encounter For Re sults for this W/ REFLEX S PRAWN TRAWLER HAND Supervision Of Other procedu re are in Normal the results Unspecified section. Trimester HBS ANTIGEN Routine 12/20/2021 11:34 AM Encounter For Results for this , S PRAWN TRAWLER HAND Supervision Of Other procedu re are in Normal the results Unspecified section. Trimester ABORH, RBC Routine 12/20/2021 11:34 AM Encounter For Results for this PRAWN TRAWLER HAND Supervision Of Other procedu re are in Normal the results Unspecified section. Trimester RUBELLA ANTIBODIES, Routine 12/20/2021 11:34 AM Encounter For Results for this IGG PRAWN TRAWLER HAND Supervision Of Other procedu re are in Normal the results Unspecified section. Trimester CBC WITHOUT Routine 12/20/2021 11:34 AM Encounter For Results for this DIFFERENTIAL, B PRAWN TRAWLER HAND Supervision Of Other proc edure are in Normal the results Unspecified section. Trimester ANTIBODY SCREEN, B Routine 12/20/2021 11:34 AM Encounter For R esults for this PRAWN TRAWLER HAND Supervision Of Other procedu re are in Normal the results Unspecified section. Trimester documented in this encounter Results Hepatitis C Virus Antibody Screen (12/20/2021 11:34 AM PRAWN TRAWLER HAND) P athologist Signature HCV Ab Scrn Negative Negative 12/21/2021 [facility] , S 8:10 AM PRAWN TRAWLER HAND Comment: Prgtep-ck-ncsubg ratio is <1.00 . Specimen Anatomical Collection Method Collection Time Receive d Time (Source) Location / / Volume Laterality Blood (Blood, 12/20/2021 11:34 12/21/2021 6:40 Venous) AM PRAWN TRAWLER HAND AM PRAWN TRAWLER HAND Cheikh Gautam M.D. LAB MICROBIOLOGY - BLOOD ORD ERABLES Performing Organization Address City/[facility]/ZIP Code Phon e Number [facility] [address] [place] [address] [place] [address] [place] [address] Laboratory Medicine and Pathology [address] [place] Syphilis Total Ab w/ Reflex, Serum (12/20/2021 11:34 AM PRAWN TRAWLER HAND) Patholo gist Method Time Signature Syphilis Nonreactive Nonreactive 12/21/2021 [facility] Total Ab w/ 11:40 AM PRAWN TRAWLER HAND Reflex Comment: No serologic evidence of infection with T. pallidum (syphilis). ??Repeat testing may be cons idered in patients with suspected acute or primary syphilis in 2-4 weeks. For additional information on interpreta tion of the syphilis reverse algorithm and resul ts, see: [email or web address] df Specimen Anatomical Collection Method Collection Time Receive d Time (Source) Location / / Volume Laterality Blood (Blood, 12/20/2021 11:34 12/20/2021 6:27 Venous) AM PRAWN TRAWLER HAND PM PRAWN TRAWLER HAND Cheikh Gautam M.D. LAB BLOOD ADD-ON Performing Organization Address City/[facility] Phon e Number [phone] [place] [address] System in [address] Rubella Antibodies, IgG (12/20/2021 11:34 AM PRAWN TRAWLER HAND) P athologist Signature Rubella Ab, Positive 12/21/2021 [facility] IgG, S 11:40 AM PRAWN TRAWLER HAND Comment: Results suggest response to immunization or prior exposure to the virus. ----REFERENCE VALUE---- Vaccinated: Positive (>=1.0 AI) Unvaccinated: Negative (<=0.7 AI) Rubella IgG Antibody Index 2.6 12/21/2021 11 :40 AM PRAWN TRAWLER HAND [facility] Specimen Anatomical Collection Method Collection Time Receive d Time (Source) Location / / Volume Laterality Blood (Blood, 12/20/2021 11:34 12/20/2021 6:27 Venous) AM PRAWN TRAWLER HAND PM PRAWN TRAWLER HAND Cheikh Gautam M.D. LAB MICROBIOLOGY - BLOOD ORD ERABLES Performing Organization Address City/State/ZIP Code Phon e Number [facility]- [address] [place] [address] [phone] [place] [address] System [address] HIV-1/-2 Ag and Ab Scrn, Plasma (12/20/2021 11:34 AM PRAWN TRAWLER HAND) P athologist Signature HIV Ag/Ab Negative Negative 12/21/2021 [facility] Scrn, 11:40 AM PRAWN TRAWLER HAND P Comment: Negative result does not rule out HIV in fection. If exposure to HIV infection occurred <14 d ays ago, contact the laboratory to request additi on of HIV-1 RNA detection / quantification test. HIV-1 p24 Ag Scrn, P Negative Negative 12/21/2021 11:40 AM PRAWN TRAWLER HAND [facility] Comment: Negative result does not rule out HIV in fection. If exposure to HIV infection occurred <14 d ays ago, contact the laboratory to request additi on of HIV-1 RNA detection / quantification test. HIV-1 Ab Scrn, P Negative Negative 12/21/2021 11: 40 AM PRAWN TRAWLER HAND [facility] Comment: Negative result does not rule out HIV in fection. If exposure to HIV infection occurred <14 d ays ago, contact the laboratory to request additi on of HIV-1 RNA detection / quantification test. HIV-2 Ab Scrn, P Negative Negative 12/21/2021 11: 40 AM PRAWN TRAWLER HAND [facility] Comment: Negative result does not rule out HIV in fection. If exposure to HIV infection occurred <14 d ays ago, contact the laboratory to request additi on of HIV-1 RNA detection / quantification test. Specimen Anatomical Collection Method Collection Time Receive d Time (Source) Location / / Volume Laterality Blood (Blood, 12/20/2021 11:34 12/20/2021 6:27 Venous) AM PRAWN TRAWLER HAND PM PRAWN TRAWLER HAND Cheikh Gautam M.D. LAB MICROBIOLOGY - BLOOD ORD ERABLES Performing Organization Address City/State/ZIP Code Phon e Number [facility]- [address] [place] [address] [phone] [place] [address] System [address] HBs Antigen , Serum (12/20/2021 11:34 AM PRAWN TRAWLER HAND) [facility] Method Time Signature HBs Antigen Non reactive Non reactive 12/20/2021 A[facility] , S 4:50 PM PRAWN TRAWLER HAND Specimen Anatomical Collection Method Collection Time Receive d Time (Source) Location / / Volume Laterality Blood (Blood, 12/20/2021 11:34 12/20/2021 3:49 Venous) AM PRAWN TRAWLER HAND PM PRAWN TRAWLER HAND Cheikh Gautam M.D. LAB MICROBIOLOGY - BLOOD ORD ERABLES Performing Organization Address City/State/ZIP Code Phon e Number [facility]- [address] [place] [address] [facility] [place] [address] [facility] [address] (ABNORMAL) CBC without Differential (12/20/2021 11:34 AM PRAWN TRAWLER HAND) [facility] Method Time Signature Hemoglobin 14.1 11.6 - 12/20/2021 [facility] 15.0 g/dL 11:44 AM PRAWN TRAWLER HAND Hematocrit 41.0 35.5 - 12/20/2021 [facility] 44.9 % 11:44 AM PRAWN TRAWLER HAND Erythrocytes 4.91 3.92 - 12/20/2021 [facility] 5.13 11:44 AM PRAWN TRAWLER HAND x10(12)/L MCV 83.5 78.2 - 12/20/2021 [facility] 97.9 fL 11:44 AM PRAWN TRAWLER HAND RBC Distrib Width 11.7 (L) 12.2 - 12/20/2021 [facility] 16.1 % 11:44 AM PRAWN TRAWLER HAND Platelet Count 360 157 - 371 12/20/2021 [facility] x10(9)/L 11:44 AM PRAWN TRAWLER HAND Leukocytes 11.1 (H) 3.4 - 9.6 12/20/2021 [facility] x10(9)/L 11:44 AM PRAWN TRAWLER HAND Specimen Anatomical Collection Method Collection Time Receive d Time (Source) Location / / Volume Laterality Blood (Blood, 12/20/2021 11:34 12/20/2021 Venous) AM PRAWN TRAWLER HAND 11:40 AM PRAWN TRAWLER HAND Cheikh M Dain M.D. LAB BLOOD ADD-ON Performing Organization Address City/[facility]/ZIP Code Phon e Number [facility]- [address] [place] [address] [facility] [facility] [place] [address] System in [place] [address] Antibody Screen, RBC (with reflex Antibody ID) (12/20/2021 11:34 AM PRAWN TRAWLER HAND) P athologist Signature Antibody Screen NEG 12/20/2021 [facility] 5:16 PM PRAWN TRAWLER HAND Specimen Anatomical Collection Method Collection Time Receive d Time (Source) Location / / Volume Laterality Blood (Blood, 12/20/2021 11:34 12/20/2021 3:49 Venous) AM PRAWN TRAWLER HAND PM PRAWN TRAWLER HAND Cheikh Gautam M.D. LAB BLOOD BANK TEST ORDERABL ES Performing Organization Address City/[facility]/ZIP [facility] Phon e Number [facility]- [address] [place] [address] [facility] [place], [place] [address] [place] [address] [facility] ABORh, RBC (12/20/2021 11:34 AM PRAWN TRAWLER HAND) P athologist Signature ABO Group O 12/20/2021 5:16 AUST PM PRAWN TRAWLER HAND Rh Type POS 12/20/2021 5:16 AUST PM PRAWN TRAWLER HAND Specimen Anatomical Collection Method Collection Time Receive d Time (Source) Location / / Volume Laterality Blood (Blood, 12/20/2021 11:34 12/20/2021 3:51 Venous) AM PRAWN TRAWLER HAND PM PRAWN TRAWLER HAND Cheikh Gautam M.D. LAB BLOOD BANK TEST ORDERABL ES Performing Organization Address City/[facility]/ZIP [facility] Phon e Number [facility]- [address] [place] [address] [facility] [place], [place] [address] [place] [address] [facility] documented in this encounter Visit Diagnoses Diagnosis Encounter For Supervision Of Other Stella l Unspecified Trimester (HCC) documented in this encounter Additional Health Concerns Assessment Noted Time PHQ-9 Depression Total Score: 4 12/20/2021 10:52 AM CS T documented as of this encounter Care Teams Parking Ramp Attendant Relationship Specialty Start Date End Date Ben Arce M.D. PCP - General Family Medicine 01/13/[address] [place] [phone] documented as of this encounter
--- OUTSIDE RECORDS SUMMARY | 2022-07-19 07:44 | XMS_ITS | Encounter Summary ---
:1990 Author Organization [facility] Address [address] [place] [address] Care Team Providers Name Role Phone Ben Arce M.D. Primary Care Provider Reason for Referral Outpatient (Routine) - Authorized Specialty Diagnoses / Procedures Referred By Contact Refer red To Contact Diagnoses Subdermal Implantable Contraceptive Removal Rylie Mcdowell M.D. [facility] Procedures Subdermal Contraceptive Device [facility] [place] [address] Referral ID Status Reason Start Date Expiration Date Visits V isits Requested Authorized [id number] Authorized 12/01/2021 12/01/2022 1 1 INE FINISHER Reason for Visit Reason Comments nexplanon removal Early . LMP 10/29/21. Pt will see Dr. Swenson in [place] with [facility] for . Appointment Request (Routine) - Closed Specialty Diagnoses / Procedures Referred By Contact Refer red To Contact Obstetrics and Gynecology Referral ID Status Reason Start Date Expiration Date Visits Requ ested Visits Authorized [id number] Closed 11/29/2021 11/29/2022 1 1 Encounter Details Date Type Department Care Team Description 12/01/2021 Office Visit Department of Rylie Mcdowell Subdermal Imp lancesar Obstetrics and Minoo Contraceptive Removal Gynecology in [address] (Primary Dx) [place], [place] [address] [facility] [address] [place], [place] [phone] (Work) [phone] Social History Tobacco Use Types Packs/Day Years [...] do you attend yarsanism or Never 2021 rastafarian services? Do you [...] Date Recorded Female 12/02/2021 5:19 PM MACHINE FINISHER documented as of this encounter Last Filed Vital Signs Vital Sign Reading Time Taken Comments Blood Pressure 155/91 12/01/2021 2:56 PM MACHINE FINISHER Pulse 84 12/01/2021 2:56 PM MACHINE FINISHER Temperature 36.2 ??C (97.2 ??F) 12/01/2021 2:56 PM MACHINE FINISHER Respiratory Rate - - Oxygen Saturation - - Inhaled Oxygen Concentration - - Weight 69.5 kg (153 lb 4.8 oz) 12/01/2021 2:56 PM MACHINE FINISHER Height - - Body Mass Index 28.94 11/08/2021 12:40 PM MACHINE FINISHER documented in this encounter Progress Notes Rylie Mcdowell M.D. - 12/01/2021 3:15 PM CST SUBJECTIVE CHIEF COMPLAINT / REASON FOR VISIT Chief Complaint Patient presents with ??? nexplanon removal Early . LMP 10/29/21. Pt will see Dr. Swenson in [place] with [facility] for . HISTORY OF PRESENT CONDITION [...] and Family: Twice a week ??? Attends Rastafari Services: Never ??? Active Member of Clubs [...] levels - plan US once HCG above 2400-4680 - Patient is following up at [facility] Diet and exercise, PNV and [...] are no discontinued medications. Rylie Mcdowell M.D. INE FINISHER documented in this encounter Procedure Notes Rylie [...] POST-PROCEDURE DETAILS Complications: no apparent complications COMMUNITY HEALTH COUNSELOR INE FINISHER documented in this encounter Plan of Treatment Not on filedocumented as of this encounter Procedures Procedure Name Priority Date/Time Associated Diagnosis Comme nts CO RMVL DRUG IMPL Routine 12/01/2021 4:11 PM Subdermal Implant able Results for this MACHINE FINISHER Contraceptive Removal proced ure are in the results section. documented in this encounter Results CO RMVL DRUG IMPL (12/01/2021 4:11 PM MACHINE FINISHER) Narrative MMODAL - 12/01/2021 4:11 PM MACHINE FINISHER Rylie Mcdowell M.D. ? 12/01/2021 ??4:12 PM [...] documented in this encounter Care Teams Senior Safety Management Consultant Relationship Specialty Start Date End Date Ben Arce M.D. PCP - General Family Medicine 01/13/[address] [place] [address] documented as of this encounter
--- OUTSIDE RECORDS SUMMARY | 2022-07-19 07:44 | XMS_ITS | Encounter Summary ---
:1990 Author Organization [facility] Address [address] [place] [address] Care Team Providers Name Role Phone Ben Arce M.D. Primary Care Provider Reason for Visit Reason Comments Med Refill Encounter Details Date Type Department Care Team Description 05/23/2021 Refill Department of Family Medicine Ben Maynard M.D. Med Refill in [facility] [address] [place] [phone] (Wo rk) Social History Tobacco Use Types [...] do you attend holiness or Never 2021 restorationism services? Do you [...] Date Recorded Female 12/02/2021 5:19 PM MAINTENANCE SERVICE TECHNICIAN documented as of this encounter Miscellaneous Notes Telephone Encounter - Rylie Le RMaribellMKalpesh - 05/23/2021 1:08 PM CDT Medication Name: cetirizine Last Office Visit: 05/18/21 Future Office Visit: none Last Blood Pressure: (73919) 05/18/21 Last Set of Labs: 01/13/21 Patient is restricted to Dr. Ritter for all refills documented in this encounter Plan of Treatment Not on filedocumented as of this encounter Visit Diagnoses Diagnosis Rhinitis Allergic documented in this encounter Care Teams Derrick Car Operator Relationship Specialty Start Date End Date Ben Arce M.D. PCP - General Family Medicine 01/13/[address] [place] [address] documented as of this encounter
--- OUTSIDE RECORDS SUMMARY | 2022-07-19 07:44 | XMS_ITS | Encounter Summary ---
:1990 Author Organization [facility] Address [address] [place] [address] Care Team Providers Name Role Phone Ben Arce M.D. Primary Care Provider Encounter Details Date Type Department Care Team Description 12/20/2021 Hospital Encounter Department of Cheikh Gautam Laboratory Medicine Minoo Garcia Supervis ion Of Other in [facility] Unspecified [address] [place] [address] Social History Tobacco Use Types Packs/Day Years [...] do you attend restoration or Never 2021 sabianist services? Do you [...] at Date Recorded Female 12/02/2021 5:19 PM EARTH MOVING MACHINE OPERATOR documented as of this encounter [...] Encounter For Resul ts for this AM EARTH MOVING MACHINE OPERATOR Supervision Of Other procedu re are in Normal the results Unspecified section. Trimester URINALYSIS WITH Routine 12/20/2021 11:26 Encounter For Results for this MICROSCOPIC IF AM EARTH MOVING MACHINE OPERATOR Supervision Of Other proce dure are in INDICATED, U Normal the results Unspecified section. Trimester BACTERIAL CULTURE, Routine 12/20/2021 11:26 Encounter For Resu lts for this AEROBIC + SUSC, AM EARTH MOVING MACHINE OPERATOR Supervision Of Other proc edure are in URINE Normal the results Unspecified section. Trimester documented in this encounter Results Hemoglobin A1c (12/20/2021 11:34 AM EARTH MOVING MACHINE OPERATOR) P athologist Signature Hemoglobin A1c, 5.2 4.2 - 5.6 12/20/2021 [facility] B % 12:27 PM EARTH MOVING MACHINE OPERATOR Specimen Anatomical Collection Method Collection Time Receive d Time (Source) Location / / Volume Laterality Blood (Blood, 12/20/2021 11:34 12/20/2021 Venous) AM EARTH MOVING MACHINE OPERATOR 11:40 AM EARTH MOVING MACHINE OPERATOR Cheikh Gautam M.D. LAB BLOOD ADD-ON Performing Organization Address City/State/ZIP Code Phon e Number [facility]- [address] [place] [address] [place] [address] System in [place] [address] Bacterial Culture, Aerobic + Susc, Urine (12/20/2021 11:26 AM EARTH MOVING MACHINE OPERATOR) Patholo gist Method Time Signature Urine Culture No growth 12/21/2021 [facility] after 1 day 8:40 AM EARTH MOVING MACHINE OPERATOR of incubation. Specimen Anatomical Collection Method Collection Time Receive d Time (Source) Location / / Volume Laterality Urine (Urine, 12/20/2021 11:26 12/20/2021 2:19 Midstream) AM EARTH MOVING MACHINE OPERATOR PM EARTH MOVING MACHINE OPERATOR Comment: Specimen Source Site: Urine Cheikh Gautam M.D. LAB MICROBIOLOGY - GENERAL O RDERABLES Performing Organization Address City/State/ZIP Code Phon e Number [facility]- [address] [place] [address] [facility] [address] System in [place] [address] [place] [address] Urinalysis with Microscopic if Indicated (12/20/2021 11:26 AM EARTH MOVING MACHINE OPERATOR) P athologist Signature Source Urine, 12/20/2021 [facility] Urine, Clean 12:12 PM EARTH MOVING MACHINE OPERATOR Catch Clarity Clear Clear 12/20/2021 [facility] 12:12 PM EARTH MOVING MACHINE OPERATOR Color Yellow 12/20/2021 [facility] 12:12 PM EARTH MOVING MACHINE OPERATOR Comment: ----REFERENCE VALUE---- Colorless Yellow Ronda Blood Negative Negative 12/20/2021 12:12 PM EARTH MOVING MACHINE OPERATOR [facility] Nitrite Negative Negative 12/20/2021 12:12 PM EARTH MOVING MACHINE OPERATOR [facility] Leukocyte Esterase Negative Negative 12/20/2021 12:[address] [facility] Protein Negative mg/dL 12/20/2021 12:12 PM EARTH MOVING MACHINE OPERATOR [facility] Comment: ----REFERENCE VALUE---- Negative Trace Glucose Negative Negative mg/dL 12/20/2021 12:12 PM EARTH MOVING MACHINE OPERATOR O FRANSICO Ketone Negative Negative mg/dL 12/20/2021 12:12 PM EARTH MOVING MACHINE OPERATOR O FRANSICO Bilirubin Negative Negative 12/20/2021 12:12 PM EARTH MOVING MACHINE OPERATOR [facility] pH 6.0 5.0 - 8.0 12/20/2021 12:12 PM EARTH MOVING MACHINE OPERATOR [facility] Specific [place] 1.005 1.001 - 1.035 12/20/2021 12:12 PM EARTH MOVING MACHINE OPERATOR [facility] Urobilinogen 0.2 0.2 - 1.0 mg/dL 12/20/2021 12:[address] [facility] Specimen Anatomical Collection Method Collection Time Receive d Time (Source) Location / / Volume Laterality Urine (Urine, 12/20/2021 11:26 12/20/2021 Clean Catch) AM EARTH MOVING MACHINE OPERATOR 12:06 PM EARTH MOVING MACHINE OPERATOR Cheikh Gautam M.D. LAB URINE ORDERABLES Performing Organization Address City/State/ZIP Code Phon e Number [facility]- [address] [place] [address] [place] [address] System in [place] [address] documented in this encounter Visit Diagnoses Diagnosis Encounter For Supervision Of Other Stella echols Unspecified Trimester (HCC) documented in this encounter Additional Health Concerns Assessment Noted Time PHQ-9 Depression Total Score: 4 12/20/2021 10:52 AM CS T documented as of this encounter Care Teams Family Service Worker Relationship Specialty Start Date End Date Ben Arce M.D. PCP - General Family Medicine 01/13/[address] [place] [phone] documented as of this encounter
--- OUTSIDE RECORDS SUMMARY | 2022-07-19 07:44 | XMS_ITS | Encounter Summary ---
:1990 Author Organization [facility] Address [address] [place] [address] Care Team Providers Name Role Phone Ben Arce M.D. Primary Care Provider Reason for Referral Outpatient (Routine) - Closed Specialty Diagnoses / Procedures Referred By Contact Refer red To Contact Obstetrics and Diagnoses Examination Test With Positive Result (HCC) Terrence Swenson M.D. [facility] Gynecology [address] [phone] Referral ID Status Reason Start Date Expiration Date Visits Requ ested Visits Authorized [id number] Closed 12/01/2021 12/01/2022 1 1 ER MIXER Specialty Diagnoses / Procedures Referred By Contact Refer red To Contact Terrence Swenson M.D. [facility] Region [address] [place] [phone] Referral ID Status Reason Start Date Expiration Date Visits Requ ested Visits Authorized ER MIXER Encounter Details Date Type Department Care Team Description 12/01/2021 Clinical Communication Department of Terrence Swenson Obstetrics and Minoo Gynecology in [address] [place], [place] [address] [place] [phone] [place], [place] [phone] (Work) [phone] Social History Tobacco Use Types Packs/Day Years [...] at Date Recorded Female 12/02/2021 5:19 PM POWDER MIXER documented as of this encounter Miscellaneous Notes [...] following references were used: Nursing Clinical Judgement ER MIXER Telephone Encounter - Anisa White - 12/01/2021 12:26 PM CST Reason for Communication: Patient calling, had a positive home test and a clinic confirmedtest. LMP unknown. Patient is looking to transfer care from [place] [facility] Can Nursing/Provider leave a detailed message?: yes Did the patient refuse triage through Nurse line? (for symptom based concerns): Action Needed: Name of Medication (if relevant): Please send all scheduling replies to scheduling pool. ER MIXER documented in this encounter Plan of Treatment [...] US OB First Trimester (12/20/2021 10:50 AM POWDER MIXER) Anatomical Region Laterality Modality Body, Ultrasound OB RST LOS, Ultrasound ARZ LOS N/A Ultrasound Specimen (Source) Anatomical Collection Method Collection Time Re ceived Time Location / / Volume Laterality 12/20/2021 12:31 PM POWDER MIXER Impressions 12/20/2021 12:34 PM POWDER MIXER Single, viable, intrauterine gestation w ith CARLOS of August 14, 2022 (not consistent with menstrual dating). Narrative 12/20/2021 12:34 PM POWDER MIXER EXAM: US OB FIRST TRIMESTER COMPARISON: None Physician: Dr. Swenson FINDINGS: Gestational age and CARLOS by LMP or OB/EHR assignment: 7 w 3 d, CARLOS: 08/05/2022 INTRAUTERINE Pole: Normal, Cocoa-Rump Length: 0 .50 cm Gestational Sac: Normal [...] 3 d, CARLOS: 08/05/2022 INTRAUTERINE Pole: Normal, Cocoa-Rump Length: 0 .50 cm Gestational Sac: Normal [...] (HCC) documented in this encounter Care Teams High School Art Teacher Relationship Specialty Start Date End Date Ben Arce M.D. PCP - General Family Medicine 01/13/[address] [place], [place] [address] documented as of this encounter
--- OUTSIDE RECORDS SUMMARY | 2022-07-19 07:44 | XMS_ITS | Encounter Summary ---
:1990 Author Organization [facility] Address [address] [place] [address] Care Team Providers Name Role Phone Ben Arce M.D. Primary Care Provider Encounter Details Date Type Department Care Team Description 12/20/2021 Orders Only Department of Obstetrics and Gau Terrence zamarripa M.D. Gynecology in [address] [address] [place] [address] [phone] Social History Tobacco Use Types Packs/Day Years [...] Date Recorded Female 12/02/2021 5:19 PM MEDICAL DELIVERY DRIVER documented as of this encounter Plan of Treatment Not on filedocumented as of this encounter Visit Diagnoses Not on filedocumented in this encounter Additional Health Concerns Assessment Noted Time PHQ-9 Depression Total Score: 4 12/20/2021 10:52 AM CS T documented as of this encounter Care Teams Paint Tinter Relationship Specialty Start Date End Date Ben Arce M.D. PCP - General Family Medicine 01/13/[address] [place] [phone] documented as of this encounter
--- OUTSIDE RECORDS SUMMARY | 2022-07-19 07:44 | XMS_ITS | Encounter Summary ---
:1990 Author Organization [facility] Address [address] [place] [address] Care Team Providers Name Role Phone Ben Arce M.D. Primary Care Provider Reason for Referral Specialty Diagnoses / Procedures Referred By Contact Refer red To Contact Ben Arce M.D. [facility] Region [address] [place] [phone] Referral ID Status Reason Start Date Expiration Date Visits Requ ested Visits Authorized ICATIONS ENGINEER Encounter Details Date Type Department Care Team Description 11/20/2021 Orders Only [facility] PCP HLTH MNT Kimberly Arce M.D. [address] [place], [place] [phone] (Wo rk) Social History [...] do you attend samaritan or Never 2021 adventist services? Do you [...] at Date Recorded Female 12/02/2021 5:19 PM APPLICATIONS ENGINEER documented as of this encounter Plan of Treatment Scheduled Referrals Name Type Priority Associated Order Schedule Diagnoses Covid immunization Outpatient Referral Routine Ex pected: office visit Booster 022 (Approximate), Expires: 11/20/2022 documented as of this encounter Visit Diagnoses Not on filedocumented in this encounter Care Teams Agate Setter Relationship Specialty Start Date End Date Ben Arce M.D. PCP - General Family Medicine 01/13/[address] [facility] [place] [phone] documented as of this encounter
--- OUTSIDE RECORDS SUMMARY | 2022-07-19 07:44 | XMS_ITS | Encounter Summary ---
:[address] [facility] Address [address] [place] [address] Care Team Providers Name Role Phone Ben Arce M.D. Primary Care Provider Encounter Details Date Type Department Care Team Description 02/28/2022 Orders Only Department of Obstetrics and Gau Terrence zamarripa M.D. Gynecology in [address] [address] [place] [address] [phone] Social History Tobacco Use Types Packs/Day Years [...] at Date Recorded Female 12/02/2021 5:19 PM STEEL ENGRAVER documented as of this encounter Plan of Treatment Not on filedocumented as of this encounter Visit Diagnoses Not on filedocumented in this encounter Additional Health Concerns Assessment Noted Time PHQ-9 Depression Total Score: 4 12/20/2021 10:52 AM CS T documented as of this encounter Care Teams Video Coordinator Relationship Specialty Start Date End Date Ben Arce M.D. PCP - General Family Medicine 01/13/[address] [place] [phone] documented as of this encounter
--- OUTSIDE RECORDS SUMMARY | 2022-07-19 07:44 | XMS_ITS | Encounter Summary ---
:1990 Author Organization [facility] Address [address] [place] [address] Care Team Providers Name Role Phone Ben Arce M.D. Primary Care Provider Reason for Visit Reason Comments Communication New script Encounter Details Date Type Department Care Team Description 10/06/2021 Clinical Communication Department of Ben Arce Comm unication (New Family Medicine in M.DMaribell script) [place] [address] [facility] [address] [facility] [phone] [phone] Social History Tobacco Use Types Packs/Day Years [...] do you attend presybeterian or Never 2021 zoroastrianism services? Do you [...] at Date Recorded Female 12/02/2021 5:19 PM PRINT PRODUCTION MANAGER documented as of this encounter Miscellaneous Notes Telephone Encounter - Babita Ramachandran R.N. - 10/06/2021 3:58 PM PRINT PRODUCTION MANAGER Portal message sent to patient that if she is on restricted plan she needs to contact her insurance for an exception. T PRODUCTION MANAGER Telephone Encounter - Alana Perkins L.P.N. - 10/06/2021 3:02 PM PRINT PRODUCTION MANAGER Spoke to pt and informed her that we would need to know which medication for eye drops was ordered so that Dr Arce could send it in. Pt states she has no idea what it is. Informed pt to find out which medication it is and call us back with that info. T PRODUCTION MANAGER Telephone Encounter - Migdalia Pompa - 10/06/2021 [...] Please call patient with plan. Thank you. T PRODUCTION MANAGER documented in this encounter Plan of Treatment Not on filedocumented as of this encounter Visit Diagnoses Not on filedocumented in this encounter Care Teams Metal Rolling Mill Operator Relationship Specialty Start Date End Date Ben Arce M.D. PCP - General Family Medicine 01/13/[address] [place] [phone] documented as of this encounter
--- OUTSIDE RECORDS SUMMARY | 2022-07-19 07:44 | XMS_ITS | Encounter Summary ---
:1990 Author Organization [facility] Address [address] [place] [address] Care Team Providers Name Role Phone Ben Arce M.D. Primary Care Provider Reason for Visit Reason Comments Vomiting Pt presents with nausea and vomiting that began last evening at 1700. Has persisted all night. Pt is 6 weeks . Encounter Details Date Type Department Care Team Description 12/09/2021 Emergency [place] [facility] Valerie Malone, Nause a And Vomiting (Primary Dx); Department M.D. Less Than 8 Weeks Gestation [address] [place] [phone] Social History Tobacco Use Types Packs/Day Years [...] you attend jehovah's witness or Never 2021 religion services? Do you [...] Date Recorded Female 12/02/2021 5:19 PM MANAGER REGULATORY documented as of this encounter Last Filed Vital Signs Vital Sign Reading Time Taken Comments Blood Pressure 126/87 12/09/2021 9:45 AM MANAGER REGULATORY Pulse 95 12/09/2021 10:00 AM MANAGER REGULATORY Temperature 37.2 ??C (99 ??F) 12/09/2021 10:00 AM MANAGER REGULATORY Respiratory Rate 14 12/09/2021 8:29 AM MANAGER REGULATORY Oxygen Saturation 99% 12/09/2021 10:00 AM MANAGER REGULATORY Inhaled Oxygen Concentration - - Weight 68.3 kg (150 lb 9.2 oz) 12/09/2021 8:31 AM MANAGER REGULATORY Height 155 cm (5' 1.02) 12/09/2021 8:31 AM MANAGER REGULATORY Body Mass Index 28.43 12/09/2021 8:31 AM MANAGER REGULATORY documented in this encounter Discharge Instructions Discharge InstructionsValerie Malone M.D. - 12/09/2021 9:29 AM CST If you are unable to keep yourself well hydrated at home, please feel free to return. GER REGULATORY AttachmentsThe following attachments cannot be sent through Care Everywhere. Morning Sickness (Armenian)documented in this encounter Medications at Time [...] normal. ASSESSMENT/PLAN IMPRESSION AND PLAN Vomiting with [id number] dehydration during . I gave normal saline 1 L IV, [id number] mg IV, Zofran 4 mg IV. She [...] 8 Weeks Gestation Valerie Malone M.D. 12/09/[address]34 GER REGULATORY documented in this encounter Plan of Treatment [...] 1,000 mL New Bag 12/09/2021 8:48 AM MANAGER REGULATORY 1,000 mL 1000 mL/hr 1,000 mL, intravenous, at 1,000 mL/hr, Administer over 1 Hours, Once, On Sun12/09/21 at 0836, For 1 dose ondansetron (PF) injection 4 mg (ZOFRAN) Given 12/09/2021 9:31 AM MANAGER REGULATORY 4 mg 4 mg, intravenous, Once, On Sun12/09/21 at 0921, For 1 dose pyridoxine (vitamin B6) injection 100 mg Given 12/09/2021 9:00 AM MANAGER REGULATORY 100 mg 100 mg, intravenous, Once, On Sun12/09/21 at 0836, For 1 dose sodium chloride 0.9 % injection 10 mL Given 12/09/2021 8:45 AM MANAGER REGULATORY 10 mL 10 mL, intravenous, As needed, [...] Recently Administered Medications Times are shown in MANAGER REGULATORY. Scheduled Medication Order 12/07/2021 12/08/2021 12/09/2021 NaCl [...] injection documented in this encounter Care Teams Acid Purification Equipment Operator Relationship Specialty Start Date End Date Ben Arce M.D. PCP - General Family Medicine 01/13/[address] [facility] [place] [phone] documented as of this encounter
--- OUTSIDE RECORDS SUMMARY | 2022-07-19 07:44 | XMS_ITS | Encounter Summary ---
:1990 Author Organization [facility] Address [address] [place] [address] Care Team Providers Name Role Phone Ben Arce M.D. Primary Care Provider Encounter Details Date Type Department Care Team Description 05/18/2021 Hospital Encounter Department of Alexander Rendon, Pain Hand Right Radiology, [facility], in [place] [address] [place], [place] [address] [place] [address] [place], [place] [phone] (Work) [phone] Social History Tobacco Use Types Packs/Day Years [...] do you attend lutheran or Never 2021 jain services? Do you [...] at Date Recorded Female 12/02/2021 5:19 PM ARCHITECTURAL DESIGN LECTURER documented as of this encounter Medications at [...] Right documented in this encounter Care Teams Physician'S Aide Relationship Specialty Start Date End Date Ben Arce M.D. PCP - General Family Medicine 01/13/[address] [place] [phone] documented as of this encounter
--- OUTSIDE RECORDS SUMMARY | 2022-07-19 07:44 | XMS_ITS | Encounter Summary ---
:1990 Author Organization [facility] Address [address] [place] [address] Care Team Providers Name Role Phone Ben Arce M.D. Primary Care Provider Reason for Visit Reason Comments Nurse Visit NOB ED/INTAKE APPT Encounter Details Date Type Department Care Team Description 12/08/2021 Virtual Visit Department of Terrence Swenson M.D. [address] [phone] Encounter For Supervision Of Other Stella l Unspecified Trimester (Primary Dx); Obstetrics and Autumn Patel R.N. [address] [address] Examination Test With Positive Result Gynecology in [place], [place] [address] [phone] Social History Tobacco Use Types [...] do you attend adventism or Never 2021 adventist services? Do you [...] at Date Recorded Female 12/02/2021 5:19 PM DIESEL TRUCK TECHNICIAN documented as of this encounter Patient [...] Provided Today: Beginnings: , , and [facility] brochure-[facility] EL TRUCK TECHNICIAN documented in this encounter Progress Notes Autumn Patel R.N. - 12/08/2021 1:30 PM CST Consult conducted via real-time audio/video technology by Autumn Patel R.N. in [facility] to the patient in Patient's Home. episode opened-please see history for details. Conceived with Nexplanon in place-this was removed after positive Beta Hcg. 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 Denies concerns. Encouraged to call with questions or concerns. EL TRUCK TECHNICIAN documented in this encounter Plan of Treatment Not on filedocumented as of this encounter Results Hepatitis C Virus Antibody Screen (12/20/2021 11:34 AM DIESEL TRUCK TECHNICIAN) athologist Signature HCV Ab Scrn Negative Negative 12/21/2021 [facility] , S 8:10 AM DIESEL TRUCK TECHNICIAN Comment: Mxoess-lz-qyufum ratio is <1.00 . Specimen Anatomical Collection Method Collection Time Receive d Time (Source) Location / / Volume Laterality Blood (Blood, 12/20/2021 11:34 12/21/2021 6:40 Venous) AM DIESEL TRUCK TECHNICIAN AM DIESEL TRUCK TECHNICIAN Cheikh Gautam M.D. LAB MICROBIOLOGY - BLOOD ORD ERABLES Performing Organization Address City/State/ZIP Code Phon e Number [facility] [address] [place] [phone] [facility] [place] [address] Laboratory Medicine and Pathology [address] [place] Syphilis Total Ab w/ Reflex, Serum (12/20/2021 11:34 AM DIESEL TRUCK TECHNICIAN) [facility] Method Time Signature Syphilis Nonreactive Nonreactive 12/21/2021 [facility] Total Ab w/ 11:40 AM DIESEL TRUCK TECHNICIAN Reflex Comment: No serologic evidence of infection with T. pallidum (syphilis). ??Repeat testing may be cons idered in patients with suspected acute or primary syphilis in 2-4 weeks. For additional information on interpreta tion of the syphilis reverse algorithm and resul ts, see: [email or web address] Specimen Anatomical Collection Method Collection Time Receive d Time (Source) Location / / Volume Laterality Blood (Blood, 12/20/2021 11:34 12/20/2021 6:27 Venous) AM DIESEL TRUCK TECHNICIAN PM DIESEL TRUCK TECHNICIAN Cheikh Gautam M.D. LAB BLOOD ADD-ON Performing Organization Address City/[facility] Phon e Number [facility]- [address] [place] [phone] [place] [address] System [address] Rubella Antibodies, IgG (12/20/2021 11:34 AM DIESEL TRUCK TECHNICIAN) athologist Signature Rubella Ab, Positive 12/21/2021 [facility] IgG, S 11:40 AM DIESEL TRUCK TECHNICIAN Comment: Results suggest response to immunization or prior exposure to the virus. ----REFERENCE VALUE---- Vaccinated: Positive (>=1.0 AI) Unvaccinated: Negative (<=0.7 AI) Rubella IgG Antibody Index 2.6 12/21/2021 11 :40 AM DIESEL TRUCK TECHNICIAN [facility] Specimen Anatomical Collection Method Collection Time Receive d Time (Source) Location / / Volume Laterality Blood (Blood, 12/20/2021 11:34 12/20/2021 6:27 Venous) AM DIESEL TRUCK TECHNICIAN PM DIESEL TRUCK TECHNICIAN Cheikh Gautam M.D. LAB MICROBIOLOGY - BLOOD ORD ERABLES Performing Organization Address City/State/ZIP Code Phon e Number [facility]- [address] [place] [phone] [facility] [address] System [address] HIV-1/-2 Ag and Ab Scrn, Plasma (12/20/2021 11:34 AM DIESEL TRUCK TECHNICIAN) P athologist Signature HIV Ag/Ab Negative Negative 12/21/2021 [facility] Scrn, 11:40 AM DIESEL TRUCK TECHNICIAN P Comment: Negative result does not rule out HIV in fection. If exposure to HIV infection occurred <14 d ays ago, contact the laboratory to request additi on of HIV-1 RNA detection / quantification test. HIV-1 p24 Ag Scrn, P Negative Negative 12/21/2021 11:40 AM DIESEL TRUCK TECHNICIAN [place] Comment: Negative result does not rule out HIV in fection. If exposure to HIV infection occurred <14 d ays ago, contact the laboratory to request additi on of HIV-1 RNA detection / quantification test. HIV-1 Ab Scrn, P Negative Negative 12/21/2021 11: 40 AM DIESEL TRUCK TECHNICIAN [place] Comment: Negative result does not rule out HIV in fection. If exposure to HIV infection occurred <14 d ays ago, contact the laboratory to request additi on of HIV-1 RNA detection / quantification test. HIV-2 Ab Scrn, P Negative Negative 12/21/2021 11: 40 AM DIESEL TRUCK TECHNICIAN [facility] Comment: Negative result does not rule out HIV in fection. If exposure to HIV infection occurred <14 d ays ago, contact the laboratory to request additi on of HIV-1 RNA detection / quantification test. Specimen Anatomical Collection Method Collection Time Receive d Time (Source) Location / / Volume Laterality Blood (Blood, 12/20/2021 11:34 12/20/2021 6:27 Venous) AM DIESEL TRUCK TECHNICIAN PM DIESEL TRUCK TECHNICIAN Cheikh Gautam M.D. LAB MICROBIOLOGY - BLOOD ORD ERAKAMALJIT Performing Organization Address City/State/ZIP Code Phon e Number [facility]- [address] [place] [address], [place] [phone] [place] [address] System in [place] HBs Antigen , Serum (12/20/2021 11:34 AM DIESEL TRUCK TECHNICIAN) [facility] Method Time Signature HBs Antigen Non reactive Non reactive 12/20/2021 [facility] , S 4:50 PM DIESEL TRUCK TECHNICIAN Specimen Anatomical Collection Method Collection Time Receive d Time (Source) Location / / Volume Laterality Blood (Blood, 12/20/2021 11:34 12/20/2021 3:49 Venous) AM DIESEL TRUCK TECHNICIAN PM DIESEL TRUCK TECHNICIAN Cheikh Gautam M.D. LAB MICROBIOLOGY - BLOOD ORD ERAKAMALJIT Performing Organization Address City/State/ZIP Code Phon e Number [facility]- [address] [place] [address] [place] [facility] [place], [place] [address] [place] [address] (ABNORMAL) CBC without Differential (12/20/2021 11:34 AM DIESEL TRUCK TECHNICIAN) [facility] Method Time Signature Hemoglobin 14.1 11.6 - 12/20/2021 [facility] 15.0 g/dL 11:44 AM DIESEL TRUCK TECHNICIAN Hematocrit 41.0 35.5 - 12/20/2021 [facility] 44.9 % 11:44 AM DIESEL TRUCK TECHNICIAN Erythrocytes 4.91 3.92 - 12/20/2021 [facility] 5.13 11:44 AM DIESEL TRUCK TECHNICIAN x10(12)/L MCV 83.5 78.2 - 12/20/2021 [facility] 97.9 fL 11:44 AM DIESEL TRUCK TECHNICIAN RBC Distrib Width 11.7 (L) 12.2 - 12/20/2021 [facility] 16.1 % 11:44 AM DIESEL TRUCK TECHNICIAN Platelet Count 360 157 - 371 12/20/2021 [facility] x10(9)/L 11:44 AM DIESEL TRUCK TECHNICIAN Leukocytes 11.1 (H) 3.4 - 9.6 12/20/2021 [facility] x10(9)/L 11:44 AM DIESEL TRUCK TECHNICIAN Specimen Anatomical Collection Method Collection Time Receive d Time (Source) Location / / Volume Laterality Blood (Blood, 12/20/2021 11:34 12/20/2021 Venous) AM DIESEL TRUCK TECHNICIAN 11:40 AM DIESEL TRUCK TECHNICIAN Cheikh Gautam M.D. LAB BLOOD ADD-ON Performing Organization Address City/State/ZIP Code Phon e Number [facility]- [address] [place] [address] [place] [address] System in [place] [address] Antibody Screen, RBC (with reflex Antibody ID) (12/20/2021 11:34 AM DIESEL TRUCK TECHNICIAN) P athologist Signature Antibody Screen NEG 12/20/2021 [facility] 5:16 PM DIESEL TRUCK TECHNICIAN Specimen Anatomical Collection Method Collection Time Receive d Time (Source) Location / / Volume Laterality Blood (Blood, 12/20/2021 11:34 12/20/2021 3:49 Venous) AM DIESEL TRUCK TECHNICIAN PM DIESEL TRUCK TECHNICIAN Cheikh Gautam M.D. LAB BLOOD BANK TEST ORDERABL ES Performing Organization Address City/[facility]/ZIP Code Phon e Number [facility]- [address] [place] [address] [facility] [address] ABORh, RBC (12/20/2021 11:34 AM DIESEL TRUCK TECHNICIAN) P athologist Signature ABO Group O 12/20/2021 5:16 [facility] PM DIESEL TRUCK TECHNICIAN Rh Type POS 12/20/2021 5:16 [facility] PM DIESEL TRUCK TECHNICIAN Specimen Anatomical Collection Method Collection Time Receive d Time (Source) Location / / Volume Laterality Blood (Blood, 12/20/2021 11:34 12/20/2021 3:51 Venous) AM DIESEL TRUCK TECHNICIAN PM DIESEL TRUCK TECHNICIAN Cheikh Gautam M.D. LAB BLOOD BANK TEST ORDERABL ES Performing Organization Address City/State/ZIP Code Phon e Number [facility]- [address] [place] [address] [facility] - [address] Bacterial Culture, Aerobic + Susc, Urine (12/20/2021 11:26 AM DIESEL TRUCK TECHNICIAN) [facility] Method Time Signature Urine Culture No growth 12/21/2021 [facility] after 1 day 8:40 AM DIESEL TRUCK TECHNICIAN of incubation. Specimen Anatomical Collection Method Collection Time Receive d Time (Source) Location / / Volume Laterality Urine (Urine, 12/20/2021 11:26 12/20/2021 2:19 Midstream) AM DIESEL TRUCK TECHNICIAN PM DIESEL TRUCK TECHNICIAN Comment: Specimen Source Site: Urine Cheikh Gautam M.D. LAB MICROBIOLOGY - GENERAL O RDERABLES Performing Organization Address City/State/ZIP Code Phon e Number [facility]- [address] [place] [id number] [place] [address] [place] [address] System in [address] Urinalysis with Microscopic if Indicated (12/20/2021 11:26 AM DIESEL TRUCK TECHNICIAN) P athologist Signature Source Urine, 12/20/2021 [facility] Urine, Clean 12:12 PM DIESEL TRUCK TECHNICIAN Catch Clarity Clear Clear 12/20/2021 [facility] 12:12 PM DIESEL TRUCK TECHNICIAN Color Yellow 12/20/2021 [facility] 12:12 PM DIESEL TRUCK TECHNICIAN Comment: ----REFERENCE VALUE---- Colorless Yellow Ronda Blood Negative Negative 12/20/2021 12:12 PM DIESEL TRUCK TECHNICIAN [facility] Nitrite Negative Negative 12/20/2021 12:12 PM DIESEL TRUCK TECHNICIAN [facility] Leukocyte Esterase Negative Negative 12/20/2021 12:[address] [facility] Protein Negative mg/dL 12/20/2021 12:12 PM DIESEL TRUCK TECHNICIAN [facility] Comment: ----REFERENCE VALUE---- Negative Trace Glucose Negative Negative mg/dL 12/20/2021 12:12 PM DIESEL TRUCK TECHNICIAN O FRANSICO Ketone Negative Negative mg/dL 12/20/2021 12:12 PM DIESEL TRUCK TECHNICIAN O FRANSICO Bilirubin Negative Negative 12/20/2021 12:12 PM DIESEL TRUCK TECHNICIAN [facility] pH 6.0 5.0 - 8.0 12/20/2021 12:12 PM DIESEL TRUCK TECHNICIAN [facility] Specific [place] 1.005 1.001 - 1.035 12/20/2021 12:12 PM DIESEL TRUCK TECHNICIAN [facility] Urobilinogen 0.2 0.2 - 1.0 mg/dL 12/20/2021 12:[address] [facility] Specimen Anatomical Collection Method Collection Time Receive d Time (Source) Location / / Volume Laterality Urine (Urine, 12/20/2021 11:26 12/20/2021 Clean Catch) AM DIESEL TRUCK TECHNICIAN 12:06 PM DIESEL TRUCK TECHNICIAN Cheikh Gautam M.D. LAB URINE ORDERABLES Performing Organization Address City/State/ZIP Code Phon e Number [facility]- [address] [place] [address] [place] [address] System in [place] [address] documented in this encounter Visit Diagnoses Diagnosis Encounter For Supervision Of Other Stella l Unspecified Trimester (HCC) - Primary Examination Test With Positive Result (HCC) documented in this encounter Care Teams Pit Clerk Relationship Specialty Start Date End Date Ben Arce M.D. PCP - General Family Medicine 01/13/[address] [place] [address] documented as of this encounter
--- OUTSIDE RECORDS SUMMARY | 2022-07-19 07:44 | XMS_ITS | Encounter Summary ---
:1990 Author Organization [facility] Address [address] [place] [address] Care Team Providers Name Role Phone Ben Arce M.D. Primary Care Provider Encounter Details Date Type Department Care Team Description 12/20/2021 Silent Schedule Department of Terrence Swenson, Pregnanc y Examination Obstetrics and M.D. Test With Positive Gynecology in [address] [place], [place] [address] [address] [place], [place] [phone] [address] (Work) [phone] Social History Tobacco Use Types Packs/Day Years [...] at Date Recorded Female 12/02/2021 5:19 PM ADMITTING CLERK documented as of this encounter Plan of Treatment Not on filedocumented as of this encounter Procedures Procedure Name Priority Date/Time Associated Comments Diagnosis US OB FIRST RAD - Routine 12/20/2021 10:50 Results fo r this TRIMESTER (most inpatients AM ADMITTING CLERK Examination Test procedu re are in and all With Positive the results outpatients) Result section. documented in this encounter Results US OB First Trimester (12/20/2021 10:50 AM ADMITTING CLERK) Anatomical Region Laterality Modality Body, Ultrasound OB RST LOS, Ultrasound ARZ LOS N/A Ultrasound Specimen (Source) Anatomical Collection Method Collection Time Re ceived Time Location / / Volume Laterality 12/20/2021 12:31 PM ADMITTING CLERK Impressions 12/20/2021 12:34 PM ADMITTING CLERK Single, viable, intrauterine gestation w ith CARLOS of August 14, 2022 (not consistent with menstrual dating). Narrative 12/20/2021 12:34 PM ADMITTING CLERK EXAM: US OB FIRST TRIMESTER COMPARISON: None Physician: Dr. Swenson FINDINGS: Gestational age and CARLOS by LMP or OB/EHR assignment: 7 w 3 d, CARLOS: 08/05/2022 INTRAUTERINE Pole: Normal, Roxie-Rump Length: 0 .50 cm Gestational Sac: Normal [...] 3 d, CARLOS: 08/05/2022 INTRAUTERINE Pole: Normal, Roxie-Rump Length: 0 .50 cm Gestational Sac: Normal [...] documented as of this encounter Care Teams Specialty Cook Relationship Specialty Start Date End Date Ben Arce M.D. PCP - General Family Medicine 01/13/21 [address] [place] [address] documented as of this encounter
--- OUTSIDE RECORDS SUMMARY | 2022-07-19 07:44 | XMS_ITS | Encounter Summary ---
:1990 Author Organization [facility] Address [address] [place] [address] Care Team Providers Name Role Phone Ben Arce M.D. Primary Care Provider Encounter Details Date Type Department Care Team Description 11/28/2021 Hospital Encounter Department of Erika Jones Laboratory Laboratory Medicine CJ HammerN, Results in [place], C.N.PMaribell, M.S.N. [place] [address] [place] [address] [phone] Social History Tobacco Use Types Packs/Day Years [...] do you attend hinduism or Never 2021 catholic services? Do you [...] at Date Recorded Female 12/02/2021 5:19 PM BEFORE SCHOOL documented as of this encounter Medications at [...] Abnormal Laboratory Results for this GONADOTROPIN (HCG), BEFORE SCHOOL Results procedur e are in ROBERTA, the results section. documented in this encounter Results (ABNORMAL) hCG (Human Chorionic Gonadotropin), Quantitative, (11/28/2021 4:00 PM BEFORE SCHOOL) P athologist Signature HCG, 94 (H) <5 IU/L 11/28/2021 NPRG Quantitative, 7:47 PM BEFORE SCHOOL , P Comment: Biotin has been identified [...] (Blood, 11/28/2021 4:00 PM 11/28/19 6:56 Venous) BEFORE SCHOOL PM BEFORE SCHOOL Erika Jones APRN, C.N.P., M.S.N. LAB BLOOD ADD-ON Performing Organization Address City/State/ZIP Code Phon e Number [facility]- [address] [place], [place] [address] [place] [address] [place] [address] [address] [facility] documented in this encounter Visit Diagnoses Diagnosis Abnormal Laboratory Results documented in this encounter Care Teams Hub Inventory Specialist Relationship Specialty Start Date End Date Ben Arce M.D. PCP - General Family Medicine 01/13/[address] [place] [phone] documented as of this encounter
--- OUTSIDE RECORDS SUMMARY | 2022-07-19 07:44 | XMS_ITS | Encounter Summary ---
:[address] [facility] Address [address] [place] [address] Care Team Providers Name Role Phone Ben Arce M.D. Primary Care Provider Encounter Details Date Type Department Care Team Description 02/01/2022 Hospital Encounter Department of Terrence Swenson High Risk Laboratory Medicine MGonzalez in [address] [address] [place], [place] [phone] [address] (Work) [phone] Social History Tobacco Use Types Packs/Day Years [...] do you attend scientology or Never 2021 restoration services? 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 documented in this encounter Results [id number] Plus-Sent Out Lab (02/01/2022 9:52 AM CDT) [...] Organization Address City/State/ZIP Code Phon e Number [facility] [address] [place] [address] [employer] [facility] [place] [address] documented in this encounter Visit Diagnoses Diagnosis High Risk (HCC) documented in this encounter Additional Health Concerns Assessment Noted Time PHQ-9 Depression Total Score: 4 12/20/2021 10:52 AM CS T documented as of this encounter Care Teams Metal Drilling Machine Operator Relationship Specialty Start Date End Date Ben Arce M.D. PCP - General Family Medicine 01/13/[address] [facility] [place] [address] documented as of this encounter
--- OUTSIDE RECORDS SUMMARY | 2022-07-19 07:44 | XMS_ITS | Encounter Summary ---
:1990 Author Organization [facility] Address [address] [place] [address] Care Team Providers Name Role Phone Ben Arce M.D. Primary Care Provider Reason for Referral Outpatient (Routine) - Authorized Specialty Diagnoses / Procedures Referred By Contact Refer red To Contact Obstetrics and Cheikh Gautam [facility] Gynecology [place] Referral ID Status Reason Start Date Expiration Date Visits V isits Requested Authorized [id number] Authorized 12/20/2021 12/20/2022 15 15 Scheduling Instructions Every 4 weeks until 28 week gestation. Then every 2 weeks until 36 week gestati on. Then every 1 week until 40+ week gestati on. L STAMPER Reason for Visit Reason Comments Initial Visit 7w 3d Outpatient (Routine) - Closed Specialty Diagnoses / Procedures Referred By Contact Refer red To Contact Obstetrics and Diagnoses Examination Test With Positive Result (HCC) Terrence Swenson M.D. [facility] Gynecology [address] [place] [address] Referral ID Status Reason Start Date Expiration Date Visits Requ ested Visits Authorized [id number] Closed 12/01/2021 12/01/2022 1 1 Encounter Details Date Type Department Care Team Description 12/20/2021 Initial Department of Obstetrics Col [place]ain in [place], [place]: 6w1d and Gynecology in M.DMaribell [place], [place] [address] [place] [address] Social History Tobacco Use Types Packs/Day [...] do you attend sikh or Never 2021 amish services? Do you [...] at Date Recorded Female 12/02/2021 5:19 PM LABEL STAMPER documented as of this encounter Last Filed Vital Signs Vital Sign Reading Time Taken Comments Blood Pressure 136/80 12/20/2021 10:52 AM LABEL STAMPER Pulse - - Temperature - - Respiratory Rate - - Oxygen Saturation - - Inhaled Oxygen Concentration - - Weight 69.2 kg (152 lb 8.9 oz) 12/20/2021 10:52 AM LABEL STAMPER Height - - Body Mass Index 28.8 12/09/2021 8:31 AM LABEL STAMPER documented in this encounter Progress Notes Cheikh [...] Vaccinations: COVID complete but needs booster/Flu declines Medical Lab Director: Pap NIL w/ neg HPV 11/2021 Aneuploidy screening/Carrier Screening: declines Preeclampsia prevention: aspirin to start at 12 weeks FAS: 28 week labs: TDAP /Rhogam GBS Growth Ultrasounds: surveillance: Presentation (36 weeks): Del planning: PPBC: Problems: 1. Hx preeclampsia: aspirin to start at 12 weeks. Need to get baseline preE labs 2. Hx GDM: Early A1C ordered L STAMPER documented in this encounter Plan of Treatment [...] and Outpatient Referral Routine 15 [facility] Gynecology office starting 0 12/20/2021 visit [...] US PROCEDURES Hemoglobin A1c (12/20/2021 11:34 AM LABEL STAMPER) P athologist Signature Hemoglobin A1c, 5.2 4.2 - 5.6 12/20/2021 OWAT B % 12:27 PM LABEL STAMPER Specimen Anatomical Collection Method Collection Time Receive d Time (Source) Location / / Volume Laterality Blood (Blood, 12/20/2021 11:34 12/20/2021 Venous) AM LABEL STAMPER 11:40 AM LABEL STAMPER Cheikh Gautam M.D. LAB BLOOD ADD-ON Performing Organization Address City/State/ZIP Code Phon e Number [facility]- [address] [place] [address] [facility] [place] [address] System in [place] [address] documented in this [...] documented as of this encounter Care Teams Aquarium Specialist Relationship Specialty Start Date End Date Ben Arce M.D. PCP - General Family Medicine 01/13/[address] [place] [address] documented as of this encounter
--- OUTSIDE RECORDS SUMMARY | 2022-07-19 07:44 | XMS_ITS | Encounter Summary ---
:1990 Author Organization [facility] Address [address] [place] [address] Care Team Providers Name Role Phone Ben Arce M.D. Primary Care Provider Reason for Visit Reason Comments Hand Injury Medical Information Encounter Details Date Type Department Care Team Description 02/11/2022 Nurse Triage Department of [facility] Rylie Hightower Hand Injury; Medical Medicine in [place], [place] [address] [facility] [address] [place] [address] [phone] Social History Tobacco Use Types Packs/Day Years [...] do you attend restorationist or Never 2021 adventist services? Do you [...] at Date Recorded Female 12/02/2021 5:19 PM LEVEL VIAL INSPECTOR documented as of this encounter Miscellaneous Notes [...] or deformed) Protocols used: HAND AND WRIST [id number] documented in this encounter Plan of Treatment Not on filedocumented as of this encounter Visit Diagnoses Not on filedocumented in this encounter Additional Health Concerns Assessment Noted Time PHQ-9 Depression Total Score: 4 12/20/2021 10:52 AM CS T documented as of this encounter Care Teams Bowling Alley Operator Relationship Specialty Start Date End Date Ben Arce M.D. PCP - General Family Medicine 01/13/[address] [place] [address] documented as of this encounter
--- OUTSIDE RECORDS SUMMARY | 2022-07-19 07:44 | XMS_ITS | Encounter Summary ---
:1990 Author Organization [facility] Address [address] [place] [address] Care Team Providers Name Role Phone Ben Arce M.D. Primary Care Provider Reason for Visit Reason Comments Nausea OTHER Breast pain Vomiting Positive at home test X 4 Encounter Details Date Type Department Care Team Description 11/24/2021 Comprehensive Visit Department of Grant Jones ncsharyn Test (Primary Dx); Obstetrics and J, PIGMENT MAKING SUPERVISOR, Counseling Bi rth Control; Gynecology in [facility] C.N.P., M.S.N. Pap Smear Examination [place], [place] [address] [place] [phone] Social History Tobacco Use Types Packs/Day Years [...] do you attend mosque or Never 2021 adventist services? Do you [...] at Date Recorded Female 12/02/2021 5:19 PM HATCHERY HELPER documented as of this encounter Last Filed Vital Signs Vital Sign Reading Time Taken Comments Blood Pressure 166/67 11/24/2021 1:50 PM HATCHERY HELPER Pulse 118 11/24/2021 1:49 PM HATCHERY HELPER Temperature 37.2 ??C (99 ??F) 11/24/2021 1:49 PM HATCHERY HELPER Respiratory Rate - - Oxygen Saturation - - Inhaled Oxygen Concentration - - Weight 71.6 kg (157 lb 12.8 oz) 11/24/2021 1:49 PM HATCHERY HELPER Height - - Body Mass Index 29.79 11/08/2021 12:40 PM HATCHERY HELPER documented in this encounter Progress Notes Grant [...] STD testing. Grant Jones APRN, Reji.NDany, M.S.N. HERY HELPER documented in this encounter Miscellaneous Notes Addendum Note - Grant Jones APRN, Reji.N.P., M.S.N. - 11/24/2021 1:15 PM HATCHERY HELPER Addended by: GRANT JONES on: 11/29/2021 08:00 AM Modules accepted: Orders HERY HELPER documented in this encounter Plan of Treatment Not on filedocumented as of this encounter Procedures Procedure Name Priority Date/Time Associated Diagnosis Comme nts THINPREP W/HPV Routine 11/24/2021 4:49 PM Pap Smear Results for this CO-TEST SCREEN HATCHERY HELPER Examination procedure are in the results section. HUMAN CHORIONIC Routine 11/24/2021 2:00 PM Test Resu lts for this GONADOTROPIN (HCG), HATCHERY HELPER procedur e are in ROBERTA, the results section. HPV WITH GENOTYPING, Routine 11/24/2021 1:53 PM R esults for this PCR, THINPREP HATCHERY HELPER procedure are in the results section. TEST, POCT, Routine 11/24/2021 1:14 PM Samira t Results for this U (LAB) HATCHERY HELPER procedure are i n the results section. documented in this encounter Results ThinPrep w/HPV Co-Test Screen (11/24/2021 4:49 PM HATCHERY HELPER) Component Value Ref Test Analysis Performed Pathologis t Range Method Time At Signature 11/28/2021 HK 3:47 PM HATCHERY HELPER Report DEBRA Boles(ASCP) 11/28/2021 HK electronically 3:47 PM signed by HATCHERY HELPER I verify that I have examined all relevant slides/materials for the specimen(s) and rendered or confirmed the diagnosis. Gross Description Received specimen 11/28/2021 HK Y in a ThinPrep 3:47 PM vial. HATCHERY HELPER Pap Test Source Cervical/Endocervi 11/28/2021 HKCY lizbeth 3:47 PM HATCHERY HELPER Interpretation Cervical/Endocervical ??(ThinPrep): 11/28/2021 HKCY 3:47 PM Satisfactory for Evaluation HATCHERY HELPER Negative for Intraepithelial Lesion or Malignancy Shift [...] Laterality Varies 11/24/2021 4:49 PM 6:36 (Cervix/Endocerv HATCHERY HELPER AM HATCHERY HELPER ix) Narrative This result has an attachment that is no t available. Reji Polanco APRN.N.P., M.S.N. LAB PAP PATHDX ORD ERABLES Performing Organization Address City/State/ZIP Code Phon e Number [facility]- [address] [place] [address] [facility] [facility] [place] [address] [facility] [address] [facility] (ABNORMAL) hCG (Human Chorionic Gonadotropin), Quantitative, (11/24/2021 2:00 PM HATCHERY HELPER) athologist Signature HCG, 6.9 (H) <5 IU/L 11/24/2021 NPRG Quantitative, 2:22 PM HATCHERY HELPER , P Comment: Biotin has been identified by the meir toro as a potential interfering substance. ??Higher concentr ations of biotin may be found in multivitamins, hair/nail supple ments, and workout supplements. ??If the result does not [facility] clinical observations, repeat testing after patient refrains fr om the use of supplements for at least 12 hours. Specimen Anatomical Collection Method Collection Time Receive d Time (Source) Location / / Volume Laterality Blood (Blood, 11/24/2021 2:00 PM 11/24/19 2:01 Venous) HATCHERY HELPER PM HATCHERY HELPER Grant Jones APRN, C.N.P., M.S.N. LAB BLOOD ADD-ON Performing Organization Address City/State/ZIP Code Phon e Number [facility]- [address] [place], [place] [address] [place] [address] [place] [address] [place] [address] [place] HPV with Genotyping, PCR, ThinPrep (11/24/2021 1:53 PM HATCHERY HELPER) athologist Signature HPV with Negative Negative 11/25/2021 MKTO Genotyping, 3:27 PM HATCHERY HELPER ThinPrep, PCR Comment: Negative for high risk HPV by nucleic ac id amplification. ??The following high risk HPV types were not detected: 16, 18, 31, 33, 35, 39, 45, 51, 52, 56, 58, 59, 66, and 68 Specimen Anatomical Collection Method Collection Time Receive d Time (Source) Location / / Volume Laterality Varies 11/24/2021 1:53 PM 6:36 HATCHERY HELPER AM HATCHERY HELPER Reji Polanco APRN.N.Anna., M.S.N. LAB MICROBIOLOGY - GENERAL ORDERABLES Performing Organization Address City/[facility]/ZIP Code Phon e Number [facility]- [address] [place] [address] [place] [address] System in [place] [address] [facility] Test, POCT, Urine (lab) (11/24/2021 1:14 PM HATCHERY HELPER) P athologist Signature Negative 11/24/2021 NPRG Test, POCT, U 1:21 PM HATCHERY HELPER Specimen Anatomical Collection Method Collection Time Receive d Time (Source) Location / / Volume Laterality Urine (Urine, 11/24/2021 1:14 PM 11/24/19 1:14 Clean Catch) HATCHERY HELPER PM HATCHERY HELPER Grant Jones APRN, C.N.P., M.S.N. LAB POCT ORDERABLE S - DEVICE Performing Organization Address City/[facility]/ZIP Code Phon e Number [facility]- [address] [place] [address] [place] [address] LAB NPRG [place] [address] documented in this encounter Visit Diagnoses Diagnosis Test - Primary Counseling Control Pap Smear Examination documented in this encounter Care Teams Pediatric Dentist Relationship Specialty Start Date End Date Ben Arce M.D. PCP - General Family Medicine 01/13/[address] [place] [phone] documented as of this encounter
--- OUTSIDE RECORDS SUMMARY | 2022-07-19 07:44 | XMS_ITS | Encounter Summary ---
:1990 Author Organization [facility] Address [address] [place] [address] Care Team Providers Name Role Phone Ben Arce M.D. Primary Care Provider Reason for Visit Reason Comments Hand Injury Encounter Details Date Type Department Care Team Description 02/11/2022 Emergency [place] Sigrid Forbes ontusion Hand Initial Department DMinoo Right (Primary Dx) [address] [place] [address] [phone] (Wo rk) Social History Tobacco Use Types [...] do you attend baptism or Never 2021 restorationism services? Do you [...] at Date Recorded Female 12/02/2021 5:19 PM BICYCLE SERVICE TECHNICIAN documented as of this encounter Last [...] clinic by calling the appointment center at [phone]. Thank you for choosing [facility] for your care. It was a pleasure taking care of you today in our Emergency Department. AttachmentsThe following attachments cannot be sent through Care Everywhere.Hand Contusion [id number] (Kinyarwanda)documented in this encounter Medications at Time of [...] Forbes M.D. - 02/11/2022 9:44 PM CDT [facility] EMERGENCY DEPARTMENT ENCOUNTER Patient Name: Lulu Mata PCP: Ben Arce M.D. SUBJECTIVE CHIEF COMPLAINT/REASON FOR VISIT Hand Injury HISTORY OF PRESENT ILLNESS Lulu Mata is a 31 y.o. female presenting with right hand pain. She was at the [facility] today when her hand was shut [...] documented as of this encounter Care Teams Corporate Associate Attorney Relationship Specialty Start Date End Date Ben Arce M.D. PCP - General Family Medicine 01/13/[address] [place] [phone] documented as of this encounter
--- OUTSIDE RECORDS SUMMARY | 2022-07-19 07:44 | XMS_ITS | Encounter Summary ---
:1990 Author Organization [facility] Address [address] [place] [address] Care Team Providers Name Role Phone Ben Arce M.D. Primary Care Provider Reason for Visit Reason Comments Med Refill Encounter Details Date Type Department Care Team Description 03/16/2021 Refill Department of Family Medicine Ben Maynard M.D. Med Refill in [facility] [address] [place] [address] [phone] (Wo rk) Social History Tobacco Use Types [...] do you attend mormonism or Never 2021 rastafarian services? Do you [...] at Date Recorded Female 12/02/2021 5:19 PM DRIVER RETRAINING INSTRUCTOR documented as of this encounter Miscellaneous Notes Telephone Encounter - Celina Goyal RMaribellN. - 03/16/2021 11:58 AM CDT Refills must come from Dr Arce due to a Restricted program Unable to refill per protocol: Name of Medications Needing Refill: Naproxen Last Refill Date: 02/10/21 [id number], 0 refills Last / Future Appointment: 01/13/21 documented in this encounter Plan of Treatment Not on filedocumented as of this encounter Visit Diagnoses Diagnosis Pain Elbow Left documented in this encounter Care Teams Historian Research Assistant Relationship Specialty Start Date End Date Ben Arce M.D. PCP - General Family Medicine 01/13/[address] [place] [address] documented as of this encounter
--- OUTSIDE RECORDS SUMMARY | 2022-07-19 07:44 | XMS_ITS | Encounter Summary ---
:1990 Author Organization [facility] Address [address] [place] [address] Care Team Providers Name Role Phone Ben Arce M.D. Primary Care Provider Reason for Visit Reason Comments Sinusitis Sinus pressure / sinus drain age/ sinus congestion x 6 weeks Encounter Details Date Type Department Care Team Description 11/08/2021 [facility] [place] [address] [facility] [address] [place] [phone] Social History Tobacco Use Types Packs/Day Years [...] you attend oriental orthodox or Never 2021 gnosticism services? Do you [...] Date Recorded Female 12/02/2021 5:19 PM COMMERCIAL DOOR INSTALLER documented as of this encounter Last Filed Vital Signs Vital Sign Reading Time Taken Comments Blood Pressure 126/78 11/08/2021 12:40 PM COMMERCIAL DOOR INSTALLER Pulse 78 11/08/2021 12:40 PM COMMERCIAL DOOR INSTALLER Temperature 37 ??C (98.6 ??F) 11/08/2021 12:40 PM COMMERCIAL DOOR INSTALLER Respiratory Rate 16 11/08/2021 12:40 PM COMMERCIAL DOOR INSTALLER Oxygen Saturation 98% 11/08/2021 12:40 PM COMMERCIAL DOOR INSTALLER Inhaled Oxygen Concentration - - Weight 72.1 kg (158 lb 14.4 oz) 11/08/2021 12:40 PM COMMERCIAL DOOR INSTALLER Height 155 cm (5' 1.02) 11/08/2021 12:40 PM COMMERCIAL DOOR INSTALLER Body Mass Index 30 11/08/2021 12:40 PM COMMERCIAL DOOR INSTALLER documented in this encounter Patient Instructions Patient InstructionsArely Ferrell APRN, C.N.P. - 11/08/2021 12:30 PM COMMERCIAL DOOR INSTALLER Steam, frequent showers to break up mucus in back of throat. Follow up if not gradually improving over the next 7-10 days or sooner if symptoms would worsen. ERCIAL DOOR INSTALLER AttachmentsThe following attachments cannot be sent through Care Everywhere. Sinusitis (Rhinosinusitis) (Kiswahili)documented in this encounter Progress Notes Arely Ferrell [...] discussed and reviewed in AVS. Discharged from [facility] in stable condition. I personally spent 20 minutes in total care of the patient today. ERCIAL DOOR INSTALLER documented in this encounter Plan of Treatment Not on filedocumented as of this encounter Visit Diagnoses Diagnosis Sinusitis - Primary documented in this encounter Care Teams Immigration Coordinator Relationship Specialty Start Date End Date Ben Arce M.D. PCP - General Family Medicine 01/13/[address] [place] [address] documented as of this encounter
--- OUTSIDE RECORDS SUMMARY | 2022-07-19 07:44 | XMS_ITS | Encounter Summary ---
:1990 Author Organization [facility] Address [address] [place] [address] Care Team Providers Name Role Phone Ben Arce M.D. Primary Care Provider Reason for Visit Reason Comments Routine Visit 16 2/7 wk ob check pelvic/lo wer back pain 7/10 pain scale, needs referral to chiropract or Outpatient (Routine) - Authorized Specialty Diagnoses / Procedures Referred By Contact Refer red To Contact Obstetrics and Cheikh Gautam [facility] william Gynecology M.DMaribell Referral ID Status Reason Start Date Expiration Date Visits V isits Requested Authorized [id number] Authorized 12/20/2021 12/20/2022 15 15 Encounter Details Date Type Department Care Team Description 03/01/2022 Routine Department of Terrence Swenson Pregnan cy Examination Test With Positive Result (HCC) (Primary Dx); Obstetrics and M.D. Encounter For Supervision Of Normal Preg roberta Unspecified Trimester (HCC) Gynecology in [address] [place], [place] [address] [place], [place] [phone] [address] (Work) [phone] Social History Tobacco Use Types Packs/Day Years [...] do you attend yazidism or Never 2021 temple services? Do you belong to any clubs or No 11/20/2021 organizations such as yazidism groups, unions, fraim3D or athletic groups, or school groups? How [...] at Date Recorded Female 12/02/2021 5:19 PM LOADER OPERATOR SUPERVISOR documented as of this encounter Last [...] documented as of this encounter Care Teams Diet Clerk Relationship Specialty Start Date End Date Ben Arce M.D. PCP - General Family Medicine 01/13/[address] [place] [address] documented as of this encounter
--- OUTSIDE RECORDS SUMMARY | 2022-07-19 07:44 | XMS_ITS | Encounter Summary ---
:[address] [facility] Address [address] [place] [address] Care Team Providers Name Role Phone Ben Arce M.D. Primary Care Provider Reason for Visit Reason Comments Routine Visit 12+2weeks Sinusitis Concerns Outpatient (Routine) - Authorized Specialty Diagnoses / Procedures Referred By Contact Refer red To Contact Obstetrics and Cheikh Gautam [facility] william Gynecology MGonzalez Referral ID Status Reason Start Date Expiration Date Visits V isits Requested Authorized [id number] Authorized 12/20/2021 12/20/2022 15 15 Encounter Details Date Type Department Care Team Description 02/01/2022 Routine Department of Terrence Swenson [facility] Obstetrics and MGonzalez (Primary Dx) Gynecology in [address] [address] [place], [place] [phone] (Work) [phone] Social History Tobacco Use Types Packs/Day Years [...] do you attend bahai or Never 2021 taoism services? Do you [...] at Date Recorded Female 12/02/2021 5:19 PM BEAMSTER documented as of this encounter Last Filed Vital Signs Vital Sign Reading Time Taken Comments Blood Pressure 130/86 02/01/2022 8:50 AM CDT Pulse - - Temperature - - Respiratory Rate - - Oxygen Saturation - - Inhaled Oxygen Concentration - - Weight 69.9 kg (154 lb 1.6 oz) 02/01/2022 8:49 AM CDT Height - - Body Mass Index 29.09 12/09/2021 8:31 AM BEAMSTER documented in this encounter Progress Notes Terrence [...] ASSESSMENT / PLAN #1 High Risk - [id number] Plus-Sent Out Lab; Future; Expected date: 02/01/2022 [...] has been sent to her pharmacy in [place]. Most of the early symptoms of including [...] on filedocumented as of this encounter Results [id number] Plus-Sent Out Lab (02/01/2022 9:52 AM CDT) [...] Organization Address City/State/ZIP Code Phon e Number [facility] [address] [place] [address] [employer] [place] [address] documented in this encounter Visit Diagnoses Diagnosis High Risk (HCC) - Primary documented in this encounter Additional Health Concerns Assessment Noted Time PHQ-9 Depression Total Score: 4 12/20/2021 10:52 AM CS T documented as of this encounter Care Teams Fruit Washer Relationship Specialty Start Date End Date Ben Arce M.D. PCP - General Family Medicine 01/13/[address] [place] [phone] documented as of this encounter
--- OUTSIDE RECORDS SUMMARY | 2022-07-19 07:44 | XMS_ITS | Encounter Summary ---
:1990 Author Organization [facility] Address [address] [place] [address] Care Team Providers Name Role Phone Ben Arce M.D. Primary Care Provider Reason for Visit Reason Comments Med Refill Encounter Details Date Type Department Care Team Description 11/24/2021 Refill Department of Family Medicine Ben Maynard M.D. Med Refill in [facility] [address] [place] [phone] (Wo rk) Social History Tobacco Use Types [...] at Date Recorded Female 12/02/2021 5:19 PM TENANT RELATIONS COORDINATOR documented as of this encounter Plan of Treatment Not on filedocumented as of this encounter Visit Diagnoses Not on filedocumented in this encounter Care Teams Re Dye Hand Relationship Specialty Start Date End Date Ben Arce M.D. PCP - General Family Medicine 01/13/[address] [place] [address] documented as of this encounter
--- OUTSIDE RECORDS SUMMARY | 2022-07-19 07:44 | XMS_ITS | Encounter Summary ---
:1990 Author Organization [facility] Address [address] [place] [address] Care Team Providers Name Role Phone Ben Arce M.D. Primary Care Provider Encounter Details Date Type Department Care Team Description 11/24/2021 Orders Only Department of Robert, Erika Hammer, Abnormal L aboratory Obstetrics and LATHE SPOTTER, C.N.P., Results (Samina pendleton Dx) Gynecology in [place], [place] [address] [place] [phone] Social History Tobacco Use Types Packs/Day Years [...] do you attend sikhism or Never 2021 mandaen services? Do you [...] Recorded Female 12/02/2021 5:19 PM HOME CARE PROVIDER documented as of this encounter Plan of Treatment Not on filedocumented as of this encounter Results (ABNORMAL) hCG (Human Chorionic Gonadotropin), Quantitative, (11/28/2021 4:00 PM HOME CARE PROVIDER) P athologist Signature HCG, 94 (H) <5 IU/L 11/28/2021 NPRG Quantitative, 7:47 PM HOME CARE PROVIDER , P Comment: Biotin has been identified [...] 11/28/2021 4:00 PM 11/28/19 22 6:56 Venous) HOME CARE PROVIDER PM HOME CARE PROVIDER Erika Jones APRN, C.N.P., M.S.N. LAB BLOOD ADD-ON Performing Organization Address City/State/ZIP Code Phon e Number [facility]- [address] [place], [place] [address] [place] [address] [place] [address] [facility] [address] [place] documented in this encounter Visit Diagnoses Diagnosis Abnormal Laboratory Results - Primary documented in this encounter Care Teams Psychiatric Social Worker Supervisor Relationship Specialty Start Date End Date Ben Arce M.D. PCP - General Family Medicine 01/13/[address] [place] [phone] documented as of this encounter
--- OUTSIDE RECORDS SUMMARY | 2022-07-19 07:44 | XMS_ITS | Encounter Summary ---
:1990 Author Organization [facility] Address [address] [place] [address] Care Team Providers Name Role Phone Ben Arce M.D. Primary Care Provider Reason for Visit Reason Comments Other right hand injury---yesterda y Encounter Details Date Type Department Care Team Description 05/18/2021 Office Visit Department of Alexander Estrella Pain Hand Right (Primary Dx); Medicine in [facility] Contusion Hand Initial Right [place], [place] [address] [place] [phone] Social History Tobacco Use Types Packs/Day Years [...] do you attend zoroastrianism or Never 2021 congregational services? Do you [...] at Date Recorded Female 12/02/2021 5:19 PM BOARD WRITER documented as of this encounter Last Filed [...] She had pain limiting her making a robinson with the thumb and index finger. No [...] Right documented in this encounter Care Teams Primer Waterproofing Machine Operator Relationship Specialty Start Date End Date Ben Arce M.D. PCP - General Family Medicine 01/13/[address] [place] [address] documented as of this encounter
--- OUTSIDE RECORDS SUMMARY | 2022-07-19 07:45 | XMS_ITS | Encounter Summary ---
:1990 Author Organization [facility] Address [address] [place] [address] Care Team Providers Name Role Phone Elsewhere, Pcp Primary Care Provider Unavailable Reason for Referral Physical Therapy (Routine) - Denied Specialty Diagnoses / Procedures Referred By Contact Refer red To Contact Diagnoses Tendonitis Loulou Teresa APRN, [facility] Procedures PT Evaluate and treat C.N.P. [address] [place] [address] Referral ID Status Reason Start Date Expiration Date Visits Requ ested Visits Authorized [id number] Denied 06/08/2020 10/21/2020 1 0 Reason for Visit Reason Comments Post Ed Visit Follow-up Encounter Details Date Type Department Care Team Description 06/08/2020 Office Visit Department of [facility] Loulou Teresa Te ndonitis (Primary Medicine in [facility] ASSOCIATE PROFESSOR OF COUNSELING, C.N.P. Dx) [place], [place] [address] [place] [phone] Social History Tobacco Use Types Packs/Day Years [...] do you attend sabianist or Never 2021 rastafari services? Do you [...] at Date Recorded Female 12/02/2021 5:19 PM CROP SPECIALIST documented as of this encounter Last [...] documented in this encounter Care Teams Document Examiner Relationship Specialty Start Date End Date Elsewhere, Pcp PCP - General Family Medicine 01/08/18 01/12/21 documented as of this encounter
--- OUTSIDE RECORDS SUMMARY | 2022-07-19 07:45 | XMS_ITS | Encounter Summary ---
:1990 Author Organization [facility] Address [address] [place] [address] Care Team Providers Name Role Phone Elsewhere, Pcp Primary Care Provider Unavailable Encounter Details Date Type Department Care Team Description 01/07/2021 Hospital Encounter Department of Renae, Zack Hammer, Pain Elbow Left Radiology, [facility], in [place] [address] [place], [place] [address] [place] [address] [place], [place] [phone] (Work) [phone] Social History Tobacco Use Types Packs/Day Years [...] at Date Recorded Female 12/02/2021 5:19 PM SWATCHER documented as of this encounter Medications at [...] Left documented in this encounter Care Teams Hand Brim Ironer Relationship Specialty Start Date End Date Elsewhere, Pcp PCP - General Family Medicine 01/08/18 01/12/21 documented as of this encounter
--- OUTSIDE RECORDS SUMMARY | 2022-07-19 07:45 | XMS_ITS | Encounter Summary ---
:1990 Author Organization [facility] Address [address] [place] [address] Care Team Providers Name Role Phone Elsewhere, Pcp Primary Care Provider Unavailable Reason for Visit Reason Comments Sinusitis Encounter Details Date Type Department Care Team Description 01/10/2020 Office Visit Urgent Care, [facility], Sin usitis Acute [place], in [place], FATOU, C.N.P., (Samina pendleton Dx) [place] D.N.P. [address] [place] [address] [phone] Social History Tobacco Use Types Packs/Day Years [...] do you attend bahai or Never 2021 mu-ism services? Do you [...] Date Recorded Female 12/02/2021 5:19 PM RN NEONATAL documented as of this encounter Last Filed [...] Body Mass Index 30.4 12/26/2019 9:26 AM RN NEONATAL documented in this encounter Patient Instructions Patient [...] bacteria. Still, most people seen in the [facility] for upper respiratory infectionor sinusitis [...] and replace them as recommended by the patient flow coordinator. Note: Having your humidity too high [...] help open sinuses and allow easier breathing. Wtwd-lxm-sivljps treatments* In addition to the previous suggestions, you may get relief for nasal and sinus obstruction or discomfort by taking non-prescription, gtow-tnm-qdeangf (OTC) medications. Many OTC medications combine a [...] [facility] ([employer]). All rights reserved. [id number] documented in this encounter Progress Notes Esther [...] Primary documented in this encounter Care Teams Auto Body Repairer Fiberglass Relationship Specialty Start Date End Date Elsewhere, Pcp PCP - General Family Medicine 01/08/18 01/12/21 documented as of this encounter
--- OUTSIDE RECORDS SUMMARY | 2022-07-19 07:45 | XMS_ITS | Encounter Summary ---
:1990 Author Organization [facility] Address [address] [place] [address] Care Team Providers Name Role Phone Ben Arce M.D. Primary Care Provider Reason for Visit Reason Comments Med Refill Naproxen Encounter Details Date Type Department Care Team Description 02/10/2021 Refill Department of Ben Metzger M.D. Med Refill (Naproxen) Medicine in [place] [address] [place], [place] [address] [place] [address] [place] [address] [phone] Social History Tobacco Use Types Packs/Day Years [...] do you attend sikhism or Never 2021 quaker services? Do you [...] Date Recorded Female 12/02/2021 5:19 PM SHIPPING COORDINATOR documented as of this encounter Miscellaneous Notes Telephone Encounter - Kennedi Mckeon, R.M.A. - 02/10/2021 10:12 AM CDT Medication refill Naproxen Last filled 01/13/21 Last OV 01/13/21, 01/07/21 Future appointment None scheduled documented in this encounter Plan of Treatment Not on filedocumented as of this encounter Visit Diagnoses Diagnosis Pain Elbow Left documented in this encounter Care Teams Report Clerk Relationship Specialty Start Date End Date Ben Arce M.D. PCP - General Family Medicine 01/13/[address] [facility] [address] documented as of this encounter
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
--- OUTSIDE RECORDS SUMMARY | 2022-07-19 07:45 | XMS_ITS | Encounter Summary ---
:1990 Author Organization [facility] Address [address] [place] [address] Care Team Providers Name Role Phone Elsewhere, Pcp Primary Care Provider Unavailable Reason for Referral Outpatient (Routine) - Closed Specialty Diagnoses / Procedures Referred By Contact Refer red To Contact Emergency Medicine Diagnoses Pain Neck Strain Neck Initial Contusion Leg Initial Left Derrek Leon M.D. [facility] Region [address] [place] [address] Referral ID Status Reason Start Date Expiration Date Visits Requ ested Visits Authorized [id number] Closed 08/01/2019 07/31/2020 1 1 Reason for Visit Reason Comments Neck Pain Pt presents from Urgent care for evaluation of neck pain and tingling of left leg. Encounter Details Date Type Department Care Team Description 08/01/2019 Emergency [facility] Derrek Leon Pa in Neck (Primary Dx); Department M.DMaribell Strain Neck Initial; [address] [facility] [address] [facility] Contusion Leg Initial Left; [place], [place] Paresthesias Feet [phone] Social History Tobacco Use Types Packs/Day [...] Date Recorded Female 12/02/2021 5:19 PM RESEARCH EPIDEMIOLOGIST documented as of this encounter Last Filed [...] be sent through Care Everywhere. Muscle Strain (Colombian)Cervical Sprain (Colombian)Contusion (Colombian)documented in this encounter Medications at Time of [...] Feet documented in this encounter Care Teams Line Appliance Assembler Relationship Specialty Start Date End Date Elsewhere, Pcp PCP - General Family Medicine 01/08/18 01/12/21 documented as of this encounter
--- OUTSIDE RECORDS SUMMARY | 2022-07-19 07:45 | XMS_ITS | Encounter Summary ---
:1990 Author Organization [facility] Address [address] [place] [address] Care Team Providers Name Role Phone Elsewhere, Pcp Primary Care Provider Unavailable Reason for Visit MRI/CAT/PET Scan (Routine) - Closed Specialty Diagnoses / Procedures Referred By Contact Refer red To Contact Radiology Diagnoses Pain Cervical Esther Andrea, INTERNIST, [facility] Region Procedures CT Cervical Spine without IV Contrast C.N.P., D.N.P. [address] [place] [address] Referral ID Status Reason Start Date Expiration Date Visits Requ ested Visits Authorized [id number] Closed 08/01/2019 07/31/2020 1 1 Encounter Details Date Type Department Care Team Description 08/01/2019 Hospital Encounter Department of Radiology Eliazar Andrea britt, in [facility] FATOU, C.N.P., [address] [place] D.N.P. [place], [place] [phone] [place] [phone] [place] [phone] Social History Tobacco Use Types Packs/Day Years [...] do you attend confucianism or Never 2021 anabaptism services? Do you belong to any clubs or No 11/20/2021 organizations such as confucianism groups, unions, fraVgift or athletic groups, or school groups? How [...] Date Recorded Female 12/02/2021 5:19 PM SILVER SPRAY WORKER documented as of this encounter Medications [...] on filedocumented in this encounter Care Teams Labor Utilization Superintendent Relationship Specialty Start Date End Date Elsewhere, Pcp PCP - General Family Medicine 01/08/18 01/12/21 documented as of this encounter
--- OUTSIDE RECORDS SUMMARY | 2022-07-19 07:45 | XMS_ITS | Encounter Summary ---
:1990 Author Organization [facility] Address [address] [place] [address] Care Team Providers Name Role Phone Elsewhere, Pcp Primary Care Provider Unavailable Reason for Referral Outpatient (Routine) - Closed Specialty Diagnoses / Procedures Referred By Contact Refer red To Contact Diagnoses [facility] Ben Arce M.D. [address] [place] [address] Referral ID Status Reason Start Date Expiration Visits Visits Date Requested Authorized [id number] Closed Continuity of 10/06/2020 10/06/2021 1 1 Care VELOPMENT MANAGER Reason for Visit Reason Comments Communication referral Encounter Details Date Type Department Care Team Description 10/06/2020 Clinical Communication Department of Ben Arce Comm unication Family Medicine in [place] (referral ) [place] [address] [facility] [address] [facility] [phone] Social History Tobacco Use Types Packs/Day Years [...] at Date Recorded Female 12/02/2021 5:19 PM REDEVELOPMENT MANAGER documented as of this encounter Miscellaneous Notes Telephone Encounter - Wilma Montelongo R.N. - 10/06/2020 4:17 PM CST Pt advised that referral was faxed to [facility]: [phone] VELOPMENT MANAGER Telephone Encounter - Ben Arce M.D. - 10/06/2020 2:55 PM CST External referral order placed. Please fax for patient. Thanks. It should be printed in the office printer. Thanks. VELOPMENT MANAGER Telephone Encounter - Ilene Gautam - 10/06/2020 [...] to send referral for her to see [facility] Dentist in [place]. She is on a restricted program through insurance and they will only cover this if referred by Dr. Arce. She is having a tooth pulled on Sunday. Please fax to fax #[phone]. Please call her to let her know if this is done. Thank you. I will send this information to the appropriate staff member who will look into your concern. Is there anything else I can help you with today? Thank you for calling [facility]. VELOPMENT MANAGER documented in this encounter Plan of Treatment Not on filedocumented as of this encounter Visit Diagnoses Diagnosis [facility] - Primary documented in this encounter Care Teams Manager People Relationship Specialty Start Date End Date Elsewhere, Pcp PCP - General Family Medicine 01/08/18 01/12/21 documented as of this encounter
--- OUTSIDE RECORDS SUMMARY | 2022-07-19 07:45 | XMS_ITS | Encounter Summary ---
:1990 Author Organization [facility] Address [address] [place] [address] Care Team Providers Name Role Phone Elsewhere, Pcp Primary Care Provider Unavailable Reason for Visit Physical Therapy (Routine) - Denied Specialty Diagnoses / Procedures Referred By Contact Refer red To Contact Diagnoses Tendonitis Loulou Teresa APRN, [facility] Procedures PT Evaluate and treat C.N.P. [address] [place] [address] Referral ID Status Reason Start Date Expiration Date Visits Requ ested Visits Authorized [id number] Denied 06/08/2020 10/21/2020 1 0 Encounter Details Date Type Department Care Team Description 06/30/2020 Comprehensive Visit Department of Physical Loulou Metz APRN, C.N.P. [address] [place] [phone] Tendonitis Elbow (Primary Dx); Medicine and Yunior Robins P.TMaribell [address] [place] [phone] Tendonitis Rehabilitation in [place], [place] [address] [place] [phone] Social History Tobacco Use Types Packs/Day Years [...] do you attend anglican or Never 2021 zoroastrianism services? Do you belong to any clubs or No 11/20/2021 organizations such as anglican groups, unions, fraShareRoot or athletic groups, or school groups? How [...] at Date Recorded Female 12/02/2021 5:19 PM PUNCH PRESS OPERATOR documented as of this encounter Consult Notes [...] upper extremity pain/tendinitis Onset Date: 06/08/20 [facility] [place] [facility] / Plan[facility] REST[facility] / Product Type: Medicaid HMO / [facility] Visit Count: 1 PERTINENT MEDICAL / [...] Patient works 40 hours at the local [employer]. Patient has a 7-1/2-year-old son. 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 Patient works the [...] Department of Physical Medicine and Rehabilitation in [address] [address] Dept: [phone] H PRESS OPERATOR documented in this encounter Plan of Treatment Not on filedocumented as of this encounter Visit Diagnoses Diagnosis Tendonitis Elbow - Primary Tendonitis documented in this encounter Care Teams Clay Machine Operator Relationship Specialty Start Date End Date Elsewhere, Pcp PCP - General Family Medicine 01/08/18 01/12/21 documented as of this encounter
--- OUTSIDE RECORDS SUMMARY | 2022-07-19 07:45 | XMS_ITS | Encounter Summary ---
:1990 Author Organization [facility] Address [address] [place] [address] Care Team Providers Name Role Phone Elsewhere, Pcp Primary Care Provider Unavailable Reason for Visit Reason Comments Hand Injury pt presents with injury to l eft hand, pt states she was holding onto a door knob yesterday at work when someone pushed the door open and smashed her hand Swelling noted. Encounter Details Date Type Department Care Team Description 12/26/2019 Emergency [place] [facility] Sigrid Forbes ontusion Hand Initial Department Minoo Cervantes Left (Primary Dx) [address] [place] [facility] [phone] (Wo rk) Social History Tobacco Use Types [...] do you attend holiness or Never 2021 sikh services? Do you [...] at Date Recorded Female 12/02/2021 5:19 PM IN ROOM DINING SERVER documented as of this encounter Last Filed Vital Signs Vital Sign Reading Time Taken Comments Blood Pressure 128/90 12/26/2019 10:18 AM IN ROOM DINING SERVER Pulse 78 12/26/2019 10:18 AM IN ROOM DINING SERVER Temperature 37 ??C (98.6 ??F) 12/26/2019 10:18 AM IN ROOM DINING SERVER Respiratory Rate 16 12/26/2019 10:18 AM IN ROOM DINING SERVER Oxygen Saturation 100% 12/26/2019 10:18 AM IN ROOM DINING SERVER Inhaled Oxygen Concentration - - Weight 70.8 kg (156 lb 1.4 oz) 12/26/2019 9:26 AM IN ROOM DINING SERVER Height 155 cm (5' 1.02) 12/26/2019 9:26 AM IN ROOM DINING SERVER Body Mass Index 29.47 12/26/2019 9:26 AM IN ROOM DINING SERVER documented in this encounter Discharge Instructions Discharge InstructionsToSigrid geronimo M.D. - 12/26/2019 9:47 AM IN ROOM DINING SERVER Return to the Emergency Department with any [...] clinic by calling the appointment center at [phone]. Thank you for choosing [facility] for your care. It was a pleasure taking care of you today in our Emergency Department. ROOM DINING SERVER documented in this encounter Medications at Time [...] Forbes M.D. - 12/26/2019 9:37 AM CST [facility] EMERGENCY DEPARTMENT ENCOUNTER Patient Name: [...] 9:49 AM Sigrid Forbes M.D. 12/26/19 1052 ROOM DINING SERVER documented in this encounter Plan of Treatment Not on filedocumented as of this encounter Procedures Procedure Name Priority Date/Time Associated Comments Diagnosis DX HAND LEFT 3 RAD - Semiurgent 12/26/2019 9:39 Result s for this VIEWS (Fast; most ED AM IN ROOM DINING SERVER procedure are in patients; some the results inpatients) section. documented in this encounter Results DX Hand Left 3 Views (12/26/2019 9:39 AM IN ROOM DINING SERVER) Anatomical Region Laterality Modality Upper Extremity, Hand, Musculoskeletal RST LOS, Left Digital Radiography Musculoskeletal ARZ LOS, Muskuloskeletal FLA LOS Specimen (Source) Anatomical Collection Method Collection Time Re ceived Time Location / / Volume Laterality 12/26/2019 9:40 AM IN ROOM DINING SERVER Impressions 12/26/2019 9:41 AM IN ROOM DINING SERVER No acute radiographic abnormalities are demonstrated. Narrative 12/26/2019 9:41 AM IN ROOM DINING SERVER EXAM: DX HAND LEFT 3 VIEWS COMPARISON: [...] Primary documented in this encounter Care Teams Drive Worker Relationship Specialty Start Date End Date Elsewhere, Pcp PCP - General Family Medicine 01/08/18 01/12/21 documented as of this encounter
--- OUTSIDE RECORDS SUMMARY | 2022-07-19 07:45 | XMS_ITS | Encounter Summary ---
:1990 Author Organization [facility] Address [address] [place] [address] Care Team Providers Name Role Phone Elsewhere, Pcp Primary Care Provider Unavailable Reason for Referral Outpatient (Routine) - Canceled Specialty Diagnoses / Procedures Referred By Contact Refer red To Contact Diagnoses Numbness Ben Arce M.D. External, Referring [address] [place] [address] Referral ID Status Reason Start Date Expiration Date Visits V isits Requested Authorized [id number] Canceled No 08/26/2019 08/25/2020 1 1 access/unsa tisfactory access ING WORKER Reason for Visit Reason Onset Date Comments Communication 08/26/2019 Encounter Details Date Type Department Care Team Description 08/26/2019 Clinical Communication Department of Ben Metzger , Communication Medicine [place] [address] [place] [phone] Social History Tobacco Use Types Packs/Day Years [...] do you attend shinto or Never 2021 shinto services? Do you belong to any clubs or No 11/20/2021 organizations such as shinto groups, unions, fraU2opia Mobile or athletic groups, or school groups? How [...] Date Recorded Female 12/02/2021 5:19 PM MILKING WORKER documented as of this encounter Miscellaneous Notes Telephone Encounter - Alexandria Whittington - 08/27/2019 9:52 AM CST I will work on this. ING WORKER Telephone Encounter - Sridhar Espinal - 08/27/2019 8:24 AM CST Alexandria, can you work on this please? Thank you!! ING WORKER Telephone Encounter - Ben Arce M.D. - 08/26/2019 3:36 PM CST External referral order placed. Please help her to find nearby neurology. None in [place], she has travel to [place] or [facility]. Thanks. ING WORKER Telephone Encounter - Nadya Koehler, RMaribellN. - 08/26/2019 12:19 PM MILKING WORKER Can an outside referral be entered for neurology for sooner appointment? Thank you. ING WORKER Telephone Encounter - Rylie Juárez - 08/26/2019 12:[address] Daiana Booth does not have an opening in [place] until December and Lulu cannot [facility]. Can a referral be placed for a neurologist that is closer? ING WORKER documented in this encounter Plan of Treatment Not on filedocumented as of this encounter Visit Diagnoses Diagnosis Numbness - Primary documented in this encounter Care Teams Program Clinician Relationship Specialty Start Date End Date Elsewhere, Pcp PCP - General Family Medicine 01/08/18 01/12/21 documented as of this encounter
--- OUTSIDE RECORDS SUMMARY | 2022-07-19 07:45 | XMS_ITS | Encounter Summary ---
:1990 Author Organization [facility] Address [address] [place] [address] Care Team Providers Name Role Phone Elsewhere, Pcp Primary Care Provider Unavailable Reason for Visit Reason Comments Sinus Symptoms ongoing Encounter Details Date Type Department Care Team Description 07/02/2020 Office Visit Urgent Care, [facility], Sin usitis Acute [place], in [place], FATOU, C.N.P., (Samina pendleton Dx) [place] D.N.P. [address] [place] [phone] [phone] Social History Tobacco Use Types Packs/Day Years [...] Date Recorded Female 12/02/2021 5:19 PM CREDIT CHECKER documented as of this encounter Last [...] bacteria. Still, most people seen in the [facility] for upper respiratory infectionor sinusitis symptoms are [...] and replace them as recommended by the hobbies and crafts sales representative. Note: Having your humidity too high (more [...] help open sinuses and allow easier breathing. Mejy-mbk-hejrgqg treatments* In addition to the previous suggestions, you may get relief for nasal and sinus obstruction or discomfort by taking non-prescription, icwe-pph-ffswwtf (OTC) medications. Many OTC medications combine a [...] Education and Research (MER). All rights reserved. [id number] documented in this encounter Progress Notes Esther [...] has been using Flonase nasal spray and cqks-qzg-dkrnhfn decongestant and Tylenol or ibuprofen for symptoms. [...] a humidifier in the room. May use vbfe-wkl-muybutf Flonase to help with congestion. Drink warm [...] Primary documented in this encounter Care Teams Pharmacy Associate Relationship Specialty Start Date End Date Elsewhere, Pcp PCP - General Family Medicine 01/08/18 01/12/21 documented as of this encounter
--- OUTSIDE RECORDS SUMMARY | 2022-07-19 07:45 | XMS_ITS | Encounter Summary ---
:1990 Author Organization [facility] Address [address] [place] [address] Care Team Providers Name Role Phone Ben [...] Type Department Care Team Description 03/01/2021 Emergency [place] Emergency Valerie Malone Contu sion Head Initial (Primary Dx); Department Minoo Strain Neck Initial [address] [place] [phone] Social History Tobacco Use Types Packs/Day Years [...] do you attend restorationist or Never 2021 denominational services? Do you [...] at Date Recorded Female 12/02/2021 5:19 PM COVER INSPECTOR documented as of this encounter Last [...] through Care Everywhere. Facial or Scalp Contusion (Lithuanian)documented in this encounter Medications at Time [...] disintegrating tablet 4 mg (ZOFRAN-ODT) ([facility]) 1101 (Given - Provider: Nita Rao R.N.) 4 mg, oral, Once, On Sun03/01/21 at 1058 , For 1 dose, When splitting ODT at bedside, handle with gloves and a pill splitter to prevent moisture contact. documented in this encounter Care Teams Casino Host Relationship Specialty Start Date End Date Ben Arce M.D. PCP - General Family Medicine 01/13/[address] [place] [phone] documented as of this encounter
--- OUTSIDE RECORDS SUMMARY | 2022-07-19 07:45 | XMS_ITS | Encounter Summary ---
:1990 Author Organization [facility] Address [address] [place] [address] Care Team Providers Name Role Phone Elsewhere, Pcp Primary Care Provider Unavailable Reason for Referral Outpatient (Routine) - Closed Specialty Diagnoses / Procedures Referred By Contact Refer red To Contact Family Medicine Donya Lind APRN, [facility] C.N.P., D.N.P. Referral ID Status Reason Start Date Expiration Date Visits Requ ested Visits Authorized [id number] Closed 01/07/2021 01/07/2022 1 1 Reason for Visit Reason Comments Follow-up Follow up Elbow Encounter Details Date Type Department Care Team Description 01/07/2021 Office Visit Department of Donya Fitzgerald Pain Elbow Left (Primary Dx); Medicine in [facility] FATOU Lu C.N.PMaribell, Rhinitis Allergic [place], [place] D.N.P. [address] [place] [address] Social History Tobacco Use Types Packs/Day Years [...] do you attend sikh or Never 2021 quaker services? Do you [...] Date Recorded Female 12/02/2021 5:19 PM WIND TURBINE BLADE REPAIR TECHNICIAN documented as of this encounter [...] Body Mass Index 31.21 12/14/2020 5:24 PM WIND TURBINE BLADE REPAIR TECHNICIAN documented in this encounter Progress Notes Donya [...] meds for pain management. She works at [employer] and has continued to wear sling at [...] plan of care as outlined. Donya Lind, UNDER GROUND MINER, DNP documented in this encounter Plan of Treatment Scheduled Referrals Name Type Priority Associated Diagnoses Order [facility] Family Medicine Outpatient Referral Routine Expec taurus: office visit 02/07/2021 (clinic) (Approximate), Expires: 01/08/2024 documented as of this encounter Visit Diagnoses Diagnosis Pain Elbow Left - Primary Rhinitis Allergic documented in this encounter Care Teams Cementing Bulk Material Operator Relationship Specialty Start Date End Date Elsewhere, Pcp PCP - General Family Medicine 01/08/18 01/12/21 documented as of this encounter
--- OUTSIDE RECORDS SUMMARY | 2022-07-19 07:45 | XMS_ITS | Encounter Summary ---
:1990 Author Organization [facility] Address [address] [place] [address] Care Team Providers Name Role Phone Elsewhere, Pcp Primary Care Provider Unavailable Reason for Referral MRI/CAT/PET Scan (Routine) - Closed Specialty Diagnoses / Procedures Referred By Contact Refer red To Contact Radiology Diagnoses Pain Cervical Esther Andrea APRN, [facility] Region Procedures CT Thoracic Spine without IV Contrast C.N.P., D.N.P. [address] [place] [address] Referral ID Status Reason Start Date Expiration Date Visits Requ ested Visits Authorized [id number] Closed 08/01/2019 07/31/2020 1 1 Reason for Visit MRI/CAT/PET Scan (Routine) - Closed Specialty Diagnoses / Procedures Referred By Contact Refer red To Contact Radiology Diagnoses Pain Cervical Emre, FATOU Santana, [facility] Region Procedures CT Thoracic Spine without IV Contrast C.N.P., D.N.P. [address] [place] [address] Referral ID Status Reason Start Date Expiration Date Visits Requ ested Visits Authorized [id number] Closed 08/01/2019 07/31/2020 1 1 Encounter Details Date Type Department Care Team Description 08/01/2019 Hospital Encounter Department of Radiology Eliazar Andrea, Pain Cervical in [place] APRN C.N.P., [address] [facility] D.N.P. [place], [place] [address] [place] [address] [place], [place] [phone] Social History Tobacco Use Types Packs/Day [...] do you attend zoroastrianism or Never 2021 spiritism services? Do you [...] at Date Recorded Female 12/02/2021 5:[address] LIGHT documented as of this encounter Medications at [...] Cervical documented in this encounter Care Teams Editor Producer Relationship Specialty Start Date End Date Elsewhere, Pcp PCP - General Family Medicine 01/08/18 01/12/21 documented as of this encounter
--- OUTSIDE RECORDS SUMMARY | 2022-07-19 07:45 | XMS_ITS | Encounter Summary ---
:1990 Author Organization [facility] Address [address] [place] [address] Care Team Providers Name Role Phone Elsewhere, Pcp Primary Care Provider Unavailable Reason for Visit Reason Comments Pain In Limb Follow up on left elbow Outpatient (Routine) - Closed Specialty Diagnoses / Procedures Referred By Contact Refer red To Contact Family Medicine Zack Macdonald M.D. [facility] Region [address] [place] [address] Referral ID Status Reason Start Date Expiration Date Visits Requ ested Visits Authorized [id number] Closed 12/16/2020 12/16/2021 1 1 Encounter Details Date Type Department Care Team Description 12/24/2020 Office Visit Department of Donya Fitzgerald Pain Elbow Left Medicine in [facility], FATOU, C.N.P., (Primary Dx) [place], [place] D.N.P. [address] [place] [phone] Social History Tobacco Use Types Packs/Day Years [...] do you attend episcopal or Never 2021 yazidism services? Do you [...] at Date Recorded Female 12/02/2021 5:19 PM PHARMACY ORDER ENTRY TECHNICIAN documented as of this encounter Last Filed Vital Signs Vital Sign Reading Time Taken Comments Blood Pressure 128/80 12/24/2020 3:26 PM PHARMACY ORDER ENTRY TECHNICIAN Pulse 80 12/24/2020 3:26 PM PHARMACY ORDER ENTRY TECHNICIAN Temperature 36.4 ??C (97.5 ??F) 12/24/2020 3:26 PM PHARMACY ORDER ENTRY TECHNICIAN Respiratory Rate - - Oxygen Saturation 97% 12/24/2020 3:26 PM PHARMACY ORDER ENTRY TECHNICIAN Inhaled Oxygen Concentration - - Weight 72.1 kg (158 lb 15.2 oz) 12/24/2020 3:26 PM PHARMACY ORDER ENTRY TECHNICIAN Height - - Body Mass Index 31.21 12/14/2020 5:24 PM PHARMACY ORDER ENTRY TECHNICIAN documented in this encounter Progress Notes [...] plan of care. Donya Lind, MIGUELANGEL, DNP MACY ORDER ENTRY TECHNICIAN documented in this encounter Plan of Treatment Not on filedocumented as of this encounter Visit Diagnoses Diagnosis Pain Elbow Left - Primary documented in this encounter Care Teams Welcome Wagon Host/Hostess Relationship Specialty Start Date End Date Elsewhere, Pcp PCP - General Family Medicine 01/08/18 01/12/21 documented as of this encounter
--- OUTSIDE RECORDS SUMMARY | 2022-07-19 07:45 | XMS_ITS | Encounter Summary ---
:1990 Author Organization [facility] Address [address] [place] [address] Care Team Providers Name Role Phone Elsewhere, Pcp Primary Care Provider Unavailable Reason for Visit Reason Comments Earache Encounter Details Date Type Department Care Team Description 01/02/2021 Nurse Triage Department of [facility] Angella Herbert, Ear ache Medicine in [place], M.S.N., R.N. [place] [address] [place] [address] 1976 Social History Tobacco Use Types Packs/Day [...] do you attend methodist or Never 2021 pentecostal services? Do you [...] Date Recorded Female 12/02/2021 5:19 PM RN ACUTE documented as of this encounter Miscellaneous Notes [...] medication (e.g., ibuprofen or acetaminophen) Protocols used: [id number] Care Advice Patient/Caregiver understands and will follow care advice?: Yes, able to teach back SEE PCP WITHIN 4 HOURS (OR PCP TRIAGE): * IF OFFICE WILL BE OPEN: You need to be seen within the next 3 or 4 hours. Call your doctor (or EMPLOYEE RELATION MANAGER/PA) now or as soon as the office [...] need to be seen. Your doctor (or EMPLOYEE RELATION MANAGER/PA) will want to talk with you to [...] on filedocumented in this encounter Care Teams Senior Training And Development Rep Relationship Specialty Start Date End Date Elsewhere, Pcp PCP - General Family Medicine 01/08/18 01/12/21 documented as of this encounter
--- OUTSIDE RECORDS SUMMARY | 2022-07-19 07:45 | XMS_ITS | Encounter Summary ---
:1990 Author Organization [facility] Address [address] [place] [address] Care Team Providers Name Role Phone Elsewhere, Pcp Primary Care Provider Unavailable Reason for Visit Reason Comments Wrist Pain 30 y/o f presents with R wri st and hand pain since . Pt says is sharp and radiates up her ar m, no injury, has been taking advil with some relief. Encounter Details Date Type Department Care Team Description 05/30/2020 Emergency [place] Emergency Sigrid Forbes endofrantz Forearm Department D, M.D. (Primary Dx) [address] [place] [facility] [place] [address] [phone] (Wo rk) Social History Tobacco Use Types [...] do you attend faith or Never 2021 buddhism services? Do you [...] at Date Recorded Female 12/02/2021 5:19 PM FIBRE OPTIC CABLE SPLICER documented as of this encounter Last Filed [...] Body Mass Index 30.81 12/26/2019 9:26 AM FIBRE OPTIC CABLE SPLICER documented in this encounter Discharge Instructions Discharge [...] clinic by calling the appointment center at [phone]. Thank you for choosing [facility] for your care. It was a [...] Forbes M.D. - 05/30/2020 12:11 PM CDT [place] [facility] EMERGENCY DEPARTMENT ENCOUNTER Patient Name: [...] Primary documented in this encounter Care Teams Garage Door Technician Relationship Specialty Start Date End Date Elsewhere, Pcp PCP - General Family Medicine 01/08/18 01/12/21 documented as of this encounter
--- OUTSIDE RECORDS SUMMARY | 2022-07-19 07:45 | XMS_ITS | Encounter Summary ---
:1990 Author Organization [facility] Address [address] [place] [address] Care Team Providers Name Role Phone Elsewhere, Pcp Primary Care Provider Unavailable Encounter Details Date Type Department Care Team Description 01/07/2021 Clinical Communication Department of [facility] Donya Lind [facility] in [facility], [place] D.N.P. [address] [place] [phone] Social History Tobacco Use Types Packs/Day Years [...] do you attend mu-ism or Never 2021 jew services? Do you [...] Date Recorded Female 12/02/2021 5:19 PM NURSING EDUCATION SPECIALIST documented as of this encounter Miscellaneous [...] patient Please call [place] before patient arrives... [phone] documented in this encounter Plan of Treatment Not on filedocumented as of this encounter Visit Diagnoses Not on filedocumented in this encounter Care Teams Brick Paving Checker Relationship Specialty Start Date End Date Elsewhere, Pcp PCP - General Family Medicine 01/08/18 01/12/21 documented as of this encounter
--- OUTSIDE RECORDS SUMMARY | 2022-07-19 07:45 | XMS_ITS | Encounter Summary ---
:1990 Author Organization [facility] Address [address] [place] [address] Care Team Providers Name Role Phone Elsewhere, Pcp Primary Care Provider Unavailable Reason for Visit Reason Comments Vomiting Pt presents w/nausea, vomiti ng and diarrhea onset 2300 yesterday. Encounter Details Date Type Department Care Team Description 11/11/2019 Emergency [place] Emergency Sigrid Forbes ausea And Vomiting (Primary Dx); Department D, M.D. Diarrhea [address] [place] [phone] (Wo rk) Social History Tobacco Use Types [...] do you attend methodist or Never 2021 baptist services? Do you [...] at Date Recorded Female 12/02/2021 5:19 PM VAN HELPER documented as of this encounter Last Filed Vital Signs Vital Sign Reading Time Taken Comments Blood Pressure 112/79 11/11/2019 7:01 AM VAN HELPER Pulse 81 11/11/2019 7:01 AM VAN HELPER Temperature 36.4 ??C (97.5 ??F) 11/11/2019 7:01 AM VAN HELPER Respiratory Rate 16 11/11/2019 7:01 AM VAN HELPER Oxygen Saturation 93% 11/11/2019 7:01 AM VAN HELPER Inhaled Oxygen Concentration - - Weight 71.8 kg (158 lb 4.6 oz) 11/11/2019 5:50 AM VAN HELPER Height 152.4 cm (5') 11/11/2019 5:50 AM VAN HELPER Body Mass Index 30.91 11/11/2019 5:50 AM VAN HELPER documented in this encounter Discharge Instructions Discharge InstructionsToSigrid geronimo M.D. - 11/11/2019 6:51 AM VAN HELPER Return to the Emergency Department/ if [...] clinic by calling the appointment center at [phone]. Thank you for choosing [facility] for your care. It was a pleasure taking care of you today in our Emergency Department. HELPER AttachmentsThe following attachments cannot be sent through Care Everywhere. Nausea and Vomiting Adult (Indonesian)Diarrhea Adult [id number]-[id number] (Indonesian) documented in this encounter Medications at Time [...] Forbes M.D. - 11/11/2019 6:16 AM CST [place] [facility] EMERGENCY DEPARTMENT ENCOUNTER Patient Name: Lulu Mata PCP: Primary Care Physician SUBJECTIVE CHIEF COMPLAINT/REASON FOR VISIT Vomiting (Pt presents w/nausea, vomiting and diarrhea onset 2300 yesterday.) HISTORY OF PRESENT ILLNESS Lulu Mata is a 29 y.o. female with a history of asthma presenting with 7 hours of vomiting and diarrhea. She ate dinner at the [employer] last night. Several different types of food [...] felt well before eating dinner at the [employer]. She denies any recentabdominal pain, no prior [...] Forbes M.D. 11/11/19650 Sigrid Forbes M.D. 11/11/19654 HELPER documented in this encounter Plan of Treatment Not on filedocumented as of this encounter Visit Diagnoses Diagnosis Nausea And Vomiting - Primary Diarrhea documented in this encounter Administered Medications Inactive Administered Medications - up to 3 most recent administrations Medication Order MAR Action Action Date Dose Rate Site ondansetron ODT disintegrating Given 11/11/2019 6:10 AM VAN HELPER 8 mg tablet 8 mg (ZOFRAN-ODT) 8 mg, oral, Once, On Sun11/11/19 at 0605, For 1 dose, When splitting ODT at bedside, handle with gloves and a pill splitter to prevent moisture contact. documented in this encounter Active and Recently Administered Medications Times are shown in VAN HELPER. Scheduled Medication Order 11/09/2019 11/10/2019 11/11/2019 ondansetron ODT disintegrating tablet 8 mg (ZOFRAN-ODT) ([facility]) 0610 (Given - Provider: Tara Brock R.N.) 8 mg, oral, Once, On Sun11/11/19 at 0605 , For 1 dose, When splitting ODT at bedside, handle with gloves and a pill splitter to prevent moisture contact. documented in this encounter Care Teams Fire Claims Adjuster Relationship Specialty Start Date End Date Elsewhere, Pcp PCP - General Family Medicine 01/08/18 01/12/21 documented as of this encounter
--- OUTSIDE RECORDS SUMMARY | 2022-07-19 07:45 | XMS_ITS | Encounter Summary ---
:1990 Author Organization [facility] Address [address] [place] [address] Care Team Providers Name Role Phone Elsewhere, Pcp Primary Care Provider Unavailable Reason for Visit Reason Comments Facial Pain Pt presents for eval of sinu s pain, congestion, throat pain and claire ear pain. sick for 3 1/2 weeks . No known fever. Using OTC sudafed and afrin without relief. Encounter Details Date Type Department Care Team Description 09/09/2019 Emergency [place] Emergency Sigrid Forbes (Primary Dx); Department D, M.D. Infection Upper Respiratory Viral [address] [place] [phone] (Wo rk) Social History Tobacco Use Types [...] do you attend yazidism or Never 2021 amish services? Do you [...] Date Recorded Female 12/02/2021 5:19 PM SITE HEAD documented as of this encounter Last Filed Vital Signs Vital Sign Reading Time Taken Comments Blood Pressure 135/101 09/09/2019 9:30 AM SITE HEAD Pulse 75 09/09/2019 9:30 AM SITE HEAD Temperature 36 ??C (96.8 ??F) 09/09/2019 9:30 AM SITE HEAD Respiratory Rate 18 09/09/2019 9:30 AM SITE HEAD Oxygen Saturation 96% 09/09/2019 9:30 AM SITE HEAD Inhaled Oxygen Concentration - - Weight 72.6 kg (160 lb) 09/09/2019 9:39 AM SITE HEAD Height 152.4 cm (5') 09/09/2019 9:39 AM SITE HEAD Body Mass Index 31.25 09/09/2019 9:39 AM SITE HEAD documented in this encounter Discharge Instructions Discharge InstructionsTomSigrid remy M.D. - 09/09/2019 9:41 AM SITE HEAD Return to the Emergency Department if you [...] clinic by calling the appointment center at [phone]. Thank you for choosing [facility] for your care. It was a pleasure taking care of you today in our Emergency Department. HEAD AttachmentsThe following attachments cannot be sent through Care Everywhere. Sinus Rinse Ubxd-hy-Wqoq (Macedonian)Sinusitis Adult Tiwf-do-Wvpd (Macedonian) documented in this encounter Medications at Time [...] Forbes M.D. 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 09/09/19946 HEAD documented in this encounter Plan of Treatment Not on filedocumented as of this encounter Visit Diagnoses Diagnosis Sinusitis - Primary Infection Upper Respiratory Viral documented in this encounter Care Teams Warehouse Inventory Clerk Relationship Specialty Start Date End Date Elsewhere, Pcp PCP - General Family Medicine 01/08/18 01/12/21 documented as of this encounter
--- OUTSIDE RECORDS SUMMARY | 2022-07-19 07:45 | XMS_ITS | Encounter Summary ---
:1990 Author Organization [facility] Address [address] [place] [address] Care Team Providers Name Role Phone Elsewhere, Pcp Primary Care Provider Unavailable Reason for Referral Outpatient (Routine) - Closed Specialty Diagnoses / Procedures Referred By Contact Refer red To Contact Neurology Diagnoses Contusion Leg Initial Left Numbness Ben Arce M.D. [facility] Region [address] [place] [address] Referral ID Status Reason Start Date Expiration Date Visits V isits Requested Authorized [id number] Closed Specialty 08/11/2019 08/10/2020 1 1 Services Required Reason for Visit Reason Comments Follow-up ED 08/01 [facility] Outpatient (Routine) - Closed Specialty Diagnoses / Procedures Referred By Contact Refer red To Contact Emergency Medicine Diagnoses Pain Neck Strain Neck Initial Contusion Leg Initial Left Derrek Leon M.D. [facility] Region [facility] [place] [address] Referral ID Status Reason Start Date Expiration Date Visits Requ ested Visits Authorized [id number] Closed 08/01/2019 07/31/2020 1 1 Encounter Details Date Type Department Care Team Description 08/11/2019 Office Visit Department of Ben Metzger M.D. Pain Neck (Primary Dx); Medicine in [facility] [address] Strain Neck Initial; [place], [place] Contusion Leg Initial Left; [address] [place] [address] Numbness [place], [place] [phone] (Work) [phone] Social History Tobacco Use Types Packs/Day Years [...] do you attend mormon or Never 2021 samaritan services? Do you [...] Date Recorded Female 12/02/2021 5:19 PM INDUSTRIAL ENG documented as of this encounter Last Filed [...] Numbness documented in this encounter Care Teams Battery Builder Relationship Specialty Start Date End Date Elsewhere, Pcp PCP - General Family Medicine 01/08/18 01/12/21 documented as of this encounter
--- OUTSIDE RECORDS SUMMARY | 2022-07-19 07:45 | XMS_ITS | Encounter Summary ---
:1990 Author Organization [facility] Address [address] [place] [address] Care Team Providers Name Role Phone Ben Arce M.D. Primary Care Provider Reason for Visit Reason Comments Other swollen and sore throat and fluid in ears right more than the left. was just here on Sunday and saw Donya for her arm Encounter Details Date Type Department Care Team Description 01/13/2021 Office Visit Department of Ben Metzger M.D. Sore Throat (Primary Medicine in [place] [address] Dx) [place], [place] [address] [place] [address] [place], [place] [phone] (Work) [phone] Social History Tobacco Use Types Packs/Day Years [...] do you attend evangelical or Never 2021 hindu services? Do you [...] at Date Recorded Female 12/02/2021 5:19 PM GERONTOLOGICAL NURSE PRACTITIONER documented as of this encounter [...] Body Mass Index 31.39 12/14/2020 5:24 PM GERONTOLOGICAL NURSE PRACTITIONER documented in this encounter Progress Ben Espinal [...] City/State/ZIP Code Phon e Number [facility]- [address] [place] [address] [place] [address] [address] documented in this encounter Visit Diagnoses Diagnosis Sore Throat - Primary documented in this encounter Care Teams Contract Administrator Relationship Specialty Start Date End Date Ben Arce M.D. PCP - General Family Medicine 01/13/[address] [place] [phone] documented as of this encounter
--- OUTSIDE RECORDS SUMMARY | 2022-07-19 07:45 | XMS_ITS | Encounter Summary ---
:1990 Author Organization [facility] Address [address] [place] [address] Care Team Providers Name Role Phone Elsewhere, Pcp Primary Care Provider Unavailable Reason for Referral Outpatient (Routine) - Closed Specialty Diagnoses / Procedures Referred By Contact Refer red To Contact Family Medicine Zack Macdonald M.D. [facility] Region [address] [place] [address] Referral ID Status Reason Start Date Expiration Date Visits Requ ested Visits Authorized [id number] Closed 12/16/2020 12/16/2021 1 1 ER PRESS PUMPER Reason for Visit Reason Comments Follow-up arm injury Encounter Details Date Type Department Care Team Description 12/16/2020 Office Visit Department of Family Zack Macdonald, Pain Elbow Left Medicine in [place]as[place]inder Hennessy (Primary Dx) [place], [place] [address] [place] [phone] Social History Tobacco Use Types Packs/Day Years [...] do you attend judaism or Never 2021 uatsdin services? Do you belong to any clubs or No 11/20/2021 organizations such as judaism groups, unions, fraPassbeeMedia or athletic groups, or school groups? How [...] at Date Recorded Female 12/02/2021 5:19 PM FILTER PRESS PUMPER documented as of this encounter Last Filed Vital Signs Vital Sign Reading Time Taken Comments Blood Pressure 126/92 12/16/2020 3:16 PM FILTER PRESS PUMPER Pulse 78 12/16/2020 3:11 PM FILTER PRESS PUMPER Temperature 36.2 ??C (97.2 ??F) 12/16/2020 3:11 PM FILTER PRESS PUMPER Respiratory Rate - - Oxygen Saturation 97% 12/16/2020 3:11 PM FILTER PRESS PUMPER Inhaled Oxygen Concentration - - Weight 72.1 kg (158 lb 14.4 oz) 12/16/2020 3:11 PM FILTER PRESS PUMPER Height - - Body Mass Index 31.2 12/14/2020 5:24 PM FILTER PRESS PUMPER documented in this encounter Patient Instructions Patient InstructionsZack Macdonald M.D. - 12/16/2020 3:30 PM CST 1. Make an appointment in 3 weeks for follow-up. 2. Sling as needed for comfort. 3. Continue to work on range of motion with the shoulder and elbow. 4. Tylenol or ibuprofen as needed for discomfort. ER PRESS PUMPER documented in this encounter Progress Notes Zack [...] Tylenol or ibuprofen as needed for discomfort. ER PRESS PUMPER documented in this encounter Plan of Treatment Scheduled Referrals Name Type Priority Associated Diagnoses Order S [facility] Outpatient Referral Routine Expec taurus: office visit [...] Left documented in this encounter Care Teams Generation Technician Relationship Specialty Start Date End Date Elsewhere, Pcp PCP - General Family Medicine 01/08/18 01/12/21 documented as of this encounter
--- OUTSIDE RECORDS SUMMARY | 2022-07-19 07:45 | XMS_ITS | Encounter Summary ---
:1990 Author Organization [facility] Address [address] [place] [address] Care Team Providers Name Role Phone Elsewhere, Pcp Primary Care Provider Unavailable Reason for Visit Reason Comments Amox Encounter Details Date Type Department Care Team Description 10/05/2020 Clinical Communication Department of Family Aguila Arias M.D. [facility] Medicine in [place] [address] [place], [place] [address] [facility] [address] [place], [place] [phone] (Work) [phone] Social History Tobacco Use Types Packs/Day Years [...] do you attend yazidism or Never 2021 presybeterian services? Do you [...] Date Recorded Female 12/02/2021 5:19 PM REGISTERED NURSE MATERNAL CHILD documented as of this encounter Miscellaneous Notes Addendum Note - Aguila Arce M.D. - 10/05/2020 4:11 PM REGISTERED NURSE MATERNAL CHILD Addended by: AGUILA ARCE on: 10/05/2020 04:11 PM Modules accepted: Orders STERED NURSE MATERNAL CHILD Addendum Note - Dali Bird R.M.A. - 10/05/2020 4:09 PM REGISTERED NURSE MATERNAL CHILD Addended by: DALI BIRD on: 10/05/2020 04:09 PM Modules accepted: Orders STERED NURSE MATERNAL CHILD Telephone Encounter - Dali Bird R.M.A. - 10/05/2020 4:03 PM REGISTERED NURSE MATERNAL CHILD Pt's sister is calling on behalf of sister stating that she is restricted to Dr Arce and needs her amox filled. She saw the dentist today, Dr Kelsea Gamino and he prescribed Amox 500 mg. Take 2 tabs STAT and one tab TID till gone #31. STERED NURSE MATERNAL CHILD documented in this encounter Plan of Treatment Not on filedocumented as of this encounter Visit Diagnoses Not on filedocumented in this encounter Care Teams Bark Press Operator Relationship Specialty Start Date End Date Elsewhere, Pcp PCP - General Family Medicine 01/08/18 01/12/21 documented as of this encounter
--- OUTSIDE RECORDS SUMMARY | 2022-07-19 07:45 | XMS_ITS | Encounter Summary ---
:1990 Author Organization [facility] Address [address] [place] [address] Care Team Providers Name Role Phone Ben Arce M.D. Primary Care Provider Encounter Details Date Type Department Care Team Description 01/21/2021 Orders Only [facility] PCP TH Teja Zuniga Jr., M.D. [address] [place] [address] [place] [phone] (Wo rk) Social History Tobacco [...] at Date Recorded Female 12/02/2021 5:19 PM INSOLE AND HEEL STIFFENER documented as of this encounter Plan of Treatment Not on filedocumented as of this encounter Visit Diagnoses Not on filedocumented in this encounter Care Teams Top Inventory Control Executive Relationship Specialty Start Date End Date Ben Arce M.D. PCP - General Family Medicine 01/13/[address] [place] [address] documented as of this encounter
--- OUTSIDE RECORDS SUMMARY | 2022-07-19 07:46 | XMS_ITS | Encounter Summary ---
:1990 Author Organization [facility] Address [address] [place] [address] Care Team Providers Name Role Phone Elsewhere, Pcp Primary Care Provider Unavailable Reason for Visit Reason Comments Sinus Symptoms 3 wks ago; started with ST, then ears and facial pressure. Pt using NetiPot. Sore Throat strep exposure at work Encounter Details Date Type Department Care Team Description 05/08/2018 Office Visit Express Care in [facility] Arely Ferrell Sinu sitis [place], [place] PLANT ELECTRICAL ENGINEER, C.N.P. (Primary Dx) [address] [place] [phone] Social History Tobacco Use Types Packs/Day Years [...] do you attend religion or Never 2021 mosque services? Do you [...] Date Recorded Female 12/02/2021 5:19 PM EMBEDDED SYSTEMS DEVELOPER documented as of this encounter Last [...] care provider none identified. Recently moved to [place]. REVIEW OF SYSTEMS Constitutional: Negative for fever. [...] Primary documented in this encounter Care Teams Pmp Certified Project Manager Relationship Specialty Start Date End Date Elsewhere, Pcp PCP - General Family Medicine 01/08/18 01/12/21 documented as of this encounter
--- OUTSIDE RECORDS SUMMARY | 2022-07-19 07:46 | XMS_ITS | Encounter Summary ---
:1990 Author Organization [facility] Address [address] [place] [address] Care Team Providers Name Role Phone Elsewhere, Pcp Primary Care Provider Unavailable Reason for Visit Reason Comments Sore Throat SX: in ER Sunday with josiane st inflammation; st started Encounter Details Date Type Department Care Team Description 07/26/2019 [facility]. (Primary Dx) [place], [place] [address], [address] [place] [address] [phone] (Wo rk) Social History Tobacco Use Types [...] do you attend caodaism or Never 2021 methodist services? Do you [...] at Date Recorded Female 12/02/2021 5:19 PM CURLING MACHINE OPERATOR documented as of this encounter [...] City/State/ZIP Code Phon e Number [place] [address] [place] [address] [facility], PCR, Point [...] City/State/ZIP Code Phon e Number [place] [address] [place] [address] [facility] documented in this encounter Visit Diagnoses Diagnosis Pharyngitis Acute - Primary documented in this encounter Care Teams Diet Assistant Relationship Specialty Start Date End Date Elsewhere, Pcp PCP - General Family Medicine 01/08/18 01/12/21 documented as of this encounter
--- OUTSIDE RECORDS SUMMARY | 2022-07-19 07:46 | XMS_ITS | Encounter Summary ---
:1990 Author Organization [facility] Address [address] [place] [address] Care Team Providers Name Role Phone Elsewhere, Pcp Primary Care Provider Unavailable Reason for Visit Reason Comments Headache frontal and middle of head Earache Cipriano ear pain Sore Throat drainage Sinus Problem over 1 month Encounter Details Date Type Department Care Team Description 01/07/2018 Office Visit Express Care in [facility] [place], [place] FATOU Samuel, C.N.P., (Primary Dx) [address] [address] Social History Tobacco Use Types Packs/Day Years [...] do you attend jew or Never 2021 hinduism services? Do you [...] at Date Recorded Female 12/02/2021 5:19 PM BROADCAST SYSTEMS ENGINEER documented as of this encounter [...] who goes to preschool. She works at [employer] with several people throughout theday. She has [...] Primary documented in this encounter Care Teams Properties Supervisor Relationship Specialty Start Date End Date Elsewhere, Pcp PCP - General Family Medicine 01/08/18 01/12/21 documented as of this encounter
--- OUTSIDE RECORDS SUMMARY | 2022-07-19 07:46 | XMS_ITS | Encounter Summary ---
:1990 Author Organization [facility] Address [address] [place] [address] Care Team Providers Name Role Phone Elsewhere, Pcp Primary Care Provider Unavailable Encounter Details Date Type Department Care Team Description 01/28/2019 Hospital Encounter Department of Radiology Ben Arce M.D. Edema Leg in [place], [place] [address] [place] [phone] Social History Tobacco Use Types Packs/Day Years [...] do you attend anabaptist or Never 2021 anglican services? Do you [...] at Date Recorded Female 12/02/2021 5:19 PM CHICKEN SEXER documented as of this encounter Medications at [...] Leg documented in this encounter Care Teams Helmet Coverer Relationship Specialty Start Date End Date Elsewhere, Pcp PCP - General Family Medicine 01/08/18 01/12/21 documented as of this encounter
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
--- OUTSIDE RECORDS SUMMARY | 2022-07-19 07:46 | XMS_ITS | Encounter Summary ---
:1990 Author Organization [facility] Address [address] [place] [address] Care Team Providers Name Role Phone Elsewhere, Pcp Primary Care Provider Unavailable Reason for Visit Reason Comments PAYAL has had symptoms for 3-4 we eks Muscle Pain chest and back -05/31, has been using ibuprofen Encounter Details Date Type Department Care Team Description 10/31/2018 Emergency [place] Emergency Valerie Malone, Infec kori Upper Department MMaribellDMaribell Respiratory (Primary [address] Dx) [place] [phone] Social History Tobacco Use Types Packs/Day Years [...] do you attend mosque or Never 2021 amish services? Do you [...] Date Recorded Female 12/02/2021 5:19 PM FLOOR CARE TECHNICIAN documented as of this encounter Last Filed Vital Signs Vital Sign Reading Time Taken Comments Blood Pressure 134/95 10/31/2018 6:52 PM FLOOR CARE TECHNICIAN Pulse 81 10/31/2018 6:06 PM FLOOR CARE TECHNICIAN Temperature 37.2 ??C (99 ??F) 10/31/2018 6:52 PM FLOOR CARE TECHNICIAN Respiratory Rate 20 10/31/2018 6:06 PM FLOOR CARE TECHNICIAN Oxygen Saturation 98% 10/31/2018 6:06 PM FLOOR CARE TECHNICIAN Inhaled Oxygen Concentration - - Weight 73.3 kg (161 lb 9.6 oz) 10/31/2018 6:04 PM FLOOR CARE TECHNICIAN Height 152.4 cm (5') 10/31/2018 6:04 PM FLOOR CARE TECHNICIAN Body Mass Index 31.56 10/31/2018 6:04 PM FLOOR CARE TECHNICIAN documented in this encounter Discharge Instructions AttachmentsThe following attachments cannot be sent through Care Everywhere. Upper Respiratory Infection Adult Kqxb-xr-Bznc (Hebrew)documented in this encounter Medications at Time of [...] Upper Respiratory Valerie Malone M.D. 10/31/18 1840 R CARE TECHNICIAN documented in this encounter Plan of Treatment Not on filedocumented as of this encounter Visit Diagnoses Diagnosis Infection Upper Respiratory - Primary documented in this encounter Care Teams Head Of Design Relationship Specialty Start Date End Date Elsewhere, Pcp PCP - General Family Medicine 01/08/18 01/12/21 documented as of this encounter
--- OUTSIDE RECORDS SUMMARY | 2022-07-19 07:46 | XMS_ITS | Encounter Summary ---
:1990 Author Organization [facility] Address [address] [place] [address] Care Team Providers Name Role Phone Elsewhere, [...] Type Department Care Team Description 07/23/2019 Emergency [place] Emergency Bull Calderon Cos tochondritis (Primary Department M.D. Dx) [address] [place] [phone] Social History Tobacco Use Types Packs/Day Years [...] do you attend evangelical or Never 2021 baptism services? Do you [...] Date Recorded Female 12/02/2021 5:19 PM ASPHALT PATCHER documented as of this encounter Last Filed [...] cannot be sent through Care Everywhere. Costochondritis Sszu-qw-Umck (Telugu)documented in this encounter Medications at Time [...] Plan Impression: Costochondritis Plan: Patient has utilize nomz-mws-wwgpgor medications without improvement or alteration in her symptomatology. Patient be started on prednisone 20 mg daily for 5 days, the 1st dose administered here in the emergency department. Ultram 50 mg 1/2-1 tablet to be utilized every 6 hours as needed for painrating 7-10/10 severity, quantity 15 with no refills was prescribed from the [employer] medication dispenser as it is currently raining [...] dose documented in this encounter Care Teams Cereal Chemist Relationship Specialty Start Date End Date Elsewhere, Pcp PCP - General Family Medicine 01/08/18 01/12/21 documented as of this encounter
--- OUTSIDE RECORDS SUMMARY | 2022-07-19 07:46 | XMS_ITS | Encounter Summary ---
:1990 Author Organization [facility] Address [address] [place] [address] Care Team Providers Name Role Phone Elsewhere, Pcp Primary Care Provider Unavailable Reason for Visit Reason Comments Skin Problem pt is noted to have bump i n left armpit and left groin, both are painful, denies fever or chi lls, states the leg bump popped on sunday Encounter Details Date Type Department Care Team Description 08/07/2018 Emergency [place] Emergency Bull Calderon Car buncle Of Groin (Primary Dx); Department M.D. Carbuncle Axilla Left [address] [place] [phone] Social History Tobacco Use Types Packs/Day Years [...] do you attend bahai or Never 2021 uatsdin services? Do you [...] at Date Recorded Female 12/02/2021 5:19 PM FOREST ECONOMIST documented as of this encounter Last Filed [...] cannot be sent through Care Everywhere.Skin Abscess Oyzf-mc-Kfct (Croatian)documented in this encounter Medications at Time [...] documented as of this encounter Procedure Notes uBll Calderon M.D. - 08/07/2018 10:40 AM CDTAssociated [...] override documented in this encounter Care Teams Division Merchandise Manager Relationship Specialty Start Date End Date Elsewhere, Pcp PCP - General Family Medicine 01/08/18 01/12/21 documented as of this encounter
--- OUTSIDE RECORDS SUMMARY | 2022-07-19 07:46 | XMS_ITS | Encounter Summary ---
:1990 Author Organization [facility] Address [address] [place] [address] Care Team Providers Name Role Phone Elsewhere, Pcp Primary Care Provider Unavailable Reason for Referral Outpatient (Routine) - Closed Specialty Diagnoses / Procedures Referred By Contact Refer red To Contact Family Medicine Ben Arce M.D. [facility] Region [address] [place] [address] Referral ID Status Reason Start Date Expiration Date Visits Requ ested Visits Authorized [id number] Closed 01/28/2019 01/28/2020 1 1 Reason for Visit Reason Comments Follow-up Sprain knee Encounter Details Date Type Department Care Team Description 01/28/2019 Comprehensive Visit Department of Ben Metzger, Pain Knee Left (Primary Dx); [facility]; [place], [place] [address] Thrombosis Superficial Vein Lower Extremity Left [address] [place] [phone] Social History Tobacco Use Types Packs/Day Years [...] do you attend shinto or Never 2021 anglican services? Do you belong to any clubs or No 11/20/2021 organizations such as shinto groups, unions, fraOrderAhead or athletic groups, or school groups? How [...] at Date Recorded Female 12/02/2021 5:19 PM SEISMOGRAPH RECORDER documented as of this encounter Last Filed [...] Name Type Priority Associated Diagnoses Order S [facility] Medicine Outpatient Referral Routine Expec taurus: [...] Leg documented in this encounter Care Teams Muffle Worker Relationship Specialty Start Date End Date Elsewhere, Pcp PCP - General Family Medicine 01/08/18 01/12/21 documented as of this encounter
--- OUTSIDE RECORDS SUMMARY | 2022-07-19 07:46 | XMS_ITS | Encounter Summary ---
:1990 Author Organization [facility] Address [address] [place] [address] Care Team Providers Name Role Phone Elsewhere, Pcp Primary Care Provider Unavailable Reason for Visit Reason Comments Nasal Congestion pt presents concerned for po ssible sinus infection. c/o of facial pain, congestion, ear pain a nd throat pain. symptoms for approx one month. denies fevers. has be en taking mucinex Encounter Details Date Type Department Care Team Description 03/28/2019 Emergency [place] Emergency Valerie Malone, Infec kori Upper Department M.DMaribell Respiratory (Primary [address] Dx) [place] [phone] [phone] Social History Tobacco Use Types Packs/Day Years [...] do you attend gnosticist or Never 2021 baptism services? Do you [...] at Date Recorded Female 12/02/2021 5:19 PM CARAMEL COLORING OPERATOR documented as of this encounter Last [...] Primary documented in this encounter Care Teams Handle Attacher Relationship Specialty Start Date End Date Elsewhere, Pcp PCP - General Family Medicine 01/08/18 01/12/21 documented as of this encounter
--- OUTSIDE RECORDS SUMMARY | 2022-07-19 07:46 | XMS_ITS | Encounter Summary ---
:1990 Author Organization [facility] Address [address] [place] [address] Care Team Providers Name Role Phone Elsewhere, [...] Type Department Care Team Description 07/29/2019 Emergency [place] Emergency Sigrid Forbes ontusion Left Lower Department D, MMaribellDMaribell Leg Initial (Primary [address] Dx) [place] [phone] (Wo rk) Social History Tobacco Use Types [...] do you attend religious or Never 2021 confucianist services? Do you belong to any clubs or No 11/20/2021 organizations such as religious groups, unions, fraGageIn or athletic groups, or school groups? How [...] at Date Recorded Female 12/02/2021 5:19 PM PATTERNMAKER METAL BENCH documented as of this encounter Last Filed [...] clinic by calling the appointment center at [phone]. Thank you for choosing [facility] for your care. It was a pleasure taking care of you today in our Emergency Department. AttachmentsThe following attachments cannot be sent through Care Everywhere. Contusion Qwqf-tn-Hsqo (Turkmen)documented in this encounter Medications at Time of Discharge Medication Sig Dispensed Refills Start Date End Date acetaminophen (TYLENOL Take by mouth as 0 08/11/2019 ORAL) needed. etonogestreL (NEXPLANON) 1 each by implant 0 12/2112/20/2021 68 mg subdermal implant route continuously. documented as of this encounter ED Notes Sigrid Forbes M.D. - 07/29/2019 4:50 PM CDT [facility] EM[facility]GENCY DEPARTMENT ENCOUNTER Patient Name: [...] of the incident with the reassuring ROS [facility] neuro system, I do not [...] Organization Address City/State/ZIP Code Phon e Number [facility] [address] [place] [address] [place] [address] [place] [address] [address] [facility] (ABNORMAL) CBC without Differential (07/29/2019 6:21 PM CDT) [facility] Method Time Signature Hemoglobin 13.2 11.6 [...] Organization Address City/State/ZIP Code Phon e Number [facility]- [address] [place], [place] [address] [facility] [place] [address] [facility] [address] DX Ankle [...] Sigrid Forbes M.D. IMG DIAGNOSTIC IMAGING PROCE [facility] CT Lumbar Spine by Reconstruction (07/29/2019 5:43 [...] LEFT tibia and fibula Sigrid Forbes M.D. [facility] [place] DIAGNOSTIC IMAGING PROCE DURES [...] (Given - Provider: Gurdeep Persaud(R)(CT) - Comment: [id number]) 100 mL, intravenous, Once in imaging, co [...] 1651 documented in this encounter Care Teams Value Engineer Relationship Specialty Start Date End Date Elsewhere, Pcp PCP - General Family Medicine 01/08/18 01/12/21 documented as of this encounter
--- OUTSIDE RECORDS SUMMARY | 2022-07-19 07:46 | XMS_ITS | Encounter Summary ---
:1990 Author Organization [facility] Address [address] [place] [address] Care Team Providers Name Role Phone Elsewhere, Pcp Primary Care Provider Unavailable Reason for Visit Reason Comments Sinus Symptoms ST, Cipriano ear pressure, conges tion; 3.5 wks ago Encounter Details Date Type Department Care Team Description 06/27/2019 Office Visit Urgent Care, [facility] [place], [place] [address], [address] [place] [address] [phone] (Wo rk) Social History Tobacco Use Types [...] do you attend mormon or Never 2021 yazdanism services? Do you [...] at Date Recorded Female 12/02/2021 5:19 PM REGULATORY MANAGER documented as of this encounter Last [...] Primary documented in this encounter Care Teams Project Geologist Relationship Specialty Start Date End Date Elsewhere, Pcp PCP - General Family Medicine 01/08/18 01/12/21 documented as of this encounter
--- OUTSIDE RECORDS SUMMARY | 2022-07-19 07:46 | XMS_ITS | Encounter Summary ---
:1990 Author Organization [facility] Address [address] [place] [address] Care Team Providers Name Role Phone Unavailable Primary Care Provider Unavailable Encounter Details Date Type Department Care Team Description 01/15/2017 Hospital Encounter HX [facility] Felix Guillen M.D. [address] [place], [place] [address] (Wo rk) Social History [...] do you attend confucianism or Never 2021 lutheran services? 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 [address] Name: DILLAN MATA Date of : 1990 12:00 AM Visit Date: 01/15/2017 7:46 PM [facility] Number: [phone] Address: [address] [place] [address] Primary Care Provider: PCP, BHARATHI IMPORTANT: [facility] [place] would like to thank you for allowing [...] becomes cold, blue, numb or tingly ?? [phone] [facility], [address] [place] [address], [place] [address]. All rights reserved. This information is not [...] you dont have one. Go to [email or web address] and click on Create Your Account. Then, follow the directions to complete the online form. Youll be asked for your [facility] number which you can find at the [...] Date Time Provider Signature Date Time Source: [employer] Document Id: [id number] Angelica Sandra R.N. - 01/15/2017 11:20 PM CDT ED Depart Summary [facility] Emergency Department Clinical Discharge Summary PERSON INFORMATION Name DILLAN MATA Age 26 Years 1990 12:00 AM Sex Female Language Wolof PCP PCP, ELSEWHERE Marital Status Unknown Visit Id Visit Reason Hand pain-swelling; SWOLLEN RIGHT HAND Specialty Enc Type Emergency Med Service Emergency Medicine Referred by Track Group MAQN ED Discharge 01/15/2017 11:10 PM Tracking Id [id number] Checkout 01/15/2017 11:10 PM Checkin 01/15/2017 7:46 PM Acuity 4 -Less Urgent Dispo Type * Discharged to Home or Self Care Arrival 01/15/2017 7:46 PM Reg Status LOS 000 03:24 Address: [address] [place] [address] Comment: PROVIDER INFORMATION Provider Role Provider Contact Time ANGELICA SANDRA ED Nurse 01/15/17 19:57 NIKOS MENDEZ MD ED Provider 01/15/17 20:09 DIAGNOSIS Contusion Hand Initial R Comment: PATIENT EDUCATION INFORMATION Instructions: CONTUSION, Hand Follow up: With: Address: When: Follow up with primary care provider Within As Needed Comments: Call for follow up appointment. If symptoms worsen. Source: [facility] Document Id: [id number] documented in this encounter Medications at Time [...] ANGELICA SANDRA - 01/15/2017 23:19 CDT Source: [employer] Document Id: [id number] CDT!9 Angelica Sandra R.N. - 01/15/2017 11:05 [...] ANGELICA SANDRA - 01/15/2017 23:19 CDT Source: [employer] Document Id: [id number] CDT!9 Angelica Sandra R.N. - 01/15/2017 11:02 [...] Motor Response Sophie : Obeys simple commands Osgood Coma Score : 15 AGNELICA SANDRA 01/15/2017 23:02 CDT GI Reassess GI Patient Stated Symptoms : None ANGELICA SANDRA - 01/15/2017 23:02 CDT /OB Reassess Patient Stated Symptoms : None ANGELICA SANDRA - 01/15/2017 23:02 CDT Source: [employer] Document Id: [id number] CDT!34 Kim Bartholomew R.N. - 01/15/2017 10:00 [...] Brenda RN - 01/15/2017 22:00 CDT Source: [employer] Document Id: [id number] CDT!15 Nikos Mendez M.D. - 01/15/2017 9:52 [...] Stat, Patient Bed, Once, 01/15/2017 21:53 CDT, [facility] Urology. Radiology results:Emergency physician interpretation: Creator: Nikos Mendez Date: Jan 15, 2017 23:04:53 Subject: Preliminary ER Physician Findings (preliminary only - not final):Three-view x-ray of the right hand: Negative for fracture or dislocation. Brant Cortes Impression and Plan Diagnosis Contusion Hand Initial R (Discharge, Emergency medicine, Medical) Plan Condition: Stable. Disposition: Discharged: Time 01/15/2017 23:05:00, to home. Prescriptions: Prescription Assessment Manager Pharmacy: ibuprofen 200 mg oral tablet (Prescribe): [...] MENDEZ MD On: 01/15/2017 11:07 PM Source: [facility] Document Id: [id number]} Angelica Sandra R.N. - 01/15/2017 8:55 PM [...] Response Sophie : Oriented Best Motor Response Osgood : Obeys simple commands Sophie Coma Score : 15 ANGELICA SANDRA 01/15/2017 20:55 CDT GI Reassess GI Patient Stated Symptoms : None ANGELICA SANDRA 01/15/2017 20:55 CDT Source: [facility] Document Id: [id number] CDT!3 Angelica Sandra R.N. - 01/15/2017 7:51 [...] PNED ; Probability: 0 ; Diagnosis Code: [id number] Triage Chief Complaint Description : Pt presents [...] vehicle, Ambulatory Track : Medical Languages : Wolof Vital Signs Assessed : Yes GCS Assessed [...] kg/m2 ANGELICA SANDRA - 01/15/2017 19:51 CDT Osgood Coma Eye Opening Response Osgood : Spontaneously Best Verbal Response Osgood : Oriented Best Motor Response Osgood : Obeys simple commands Sophie Coma Score [...] None ANGELICA SANDRA 01/15/2017 19:51 CDT Source: [employer] Document Id: [id number] CDT!117 documented in this encounter Miscellaneous Notes Miscellaneous - Conversion, Historical Provider Ser - 01/15/2017 11:10 PM CDT Coding Summary-Paper Based CODING DATE: 01/22/2017 FINAL [facility] STATUS: * Discharged to Home or Self [...] DUONG Date Saved: 01/22/2017 10:08 am Source: [employer] Document Id: [id number] Miscellaneous - Angelica Sandra RMaribellN. - 01/15/2017 11:05 PM CDT Valuables/Belongings Valuables/Belongings Entered On: 01/15/2017 23:20 CDT Performed On: 01/15/2017 23:05 CDT by ANGELICA SANDRA Valuables/Belongings Belongings Sent Home With : all belongings sent home with patient ANGELICA SANDRA - 01/15/2017 23:20 CDT Source: [employer] Document Id: [id number] CDT!3 documented in this encounter Plan of [...]
--- OUTSIDE RECORDS SUMMARY | 2022-07-19 07:46 | XMS_ITS | Encounter Summary ---
:1990 Author Organization [facility] Address [address] [place] [address] Care Team Providers Name Role Phone Elsewhere, Pcp Primary Care Provider Unavailable Encounter Details Date Type Department Care Team Description 01/28/2019 Hospital Encounter Department of Radiology, Ben Arias M.D. [place] [address] [address] [place], [place] [facility] [address] [place] [address] [phone] Social History Tobacco Use Types Packs/Day Years [...] do you attend islam or Never 2021 rastafarian services? Do you [...] at Date Recorded Female 12/02/2021 5:19 PM RECORDS MANAGEMENT ANALYST documented as of this encounter Medications [...] on filedocumented in this encounter Care Teams Security Assistant Relationship Specialty Start Date End Date Elsewhere, Pcp PCP - General Family Medicine 01/08/18 3 documented as of this encounter
--- OUTSIDE RECORDS SUMMARY | 2022-07-19 07:46 | XMS_ITS | Encounter Summary ---
:1990 Author Organization [facility] Address [address] [place] [address] Care Team Providers Name Role Phone Elsewhere, Pcp Primary Care Provider Unavailable Reason for Visit Reason Comments Sinus Symptoms 30 + days ago Encounter Details Date Type Department Care Team Description 12/12/2018 Office Visit Express Care in [facility] Mario Savage, Inf ection [place], [place] P.A.-C. Respiratory (Primary [address], Dx) [facility] [address] [place], [place] [phone] (Wo rk) Social History Tobacco Use Types [...] do you attend episcopal or Never 2021 sabianist services? Do you [...] at Date Recorded Female 12/02/2021 5:19 PM CABLE ASSEMBLER AND SWAGER documented as of this encounter Last Filed Vital Signs Vital Sign Reading Time Taken Comments Blood Pressure 136/92 12/12/2018 7:15 PM CABLE ASSEMBLER AND SWAGER Pulse 86 12/12/2018 7:15 PM CABLE ASSEMBLER AND SWAGER Temperature 36.9 ??C (98.4 ??F) 12/12/2018 7:15 PM CABLE ASSEMBLER AND SWAGER Respiratory Rate - - Oxygen Saturation 96% 12/12/2018 7:15 PM CABLE ASSEMBLER AND SWAGER Inhaled Oxygen Concentration - - Weight 72 kg (158 lb 11.7 oz) 12/12/2018 7:15 PM CABLE ASSEMBLER AND SWAGER Height - - Body Mass Index 31 10/31/2018 6:04 PM CABLE ASSEMBLER AND SWAGER documented in this encounter Patient Instructions Patient [...] urgent care if worsening. Mario Savage P.A.-C. E ASSEMBLER AND SWAGER documented in this encounter Progress Notes Mario [...] urgent care if worsening. Mario Savage P.A.-C. E ASSEMBLER AND SWAGER documented in this encounter Plan of Treatment Not on filedocumented as of this encounter Visit Diagnoses Diagnosis Infection Upper Respiratory - Primary documented in this encounter Care Teams Stained Glass Glazier Relationship Specialty Start Date End Date Elsewhere, Pcp PCP - General Family Medicine 01/08/18 01/12/21 documented as of this encounter
--- OUTSIDE RECORDS SUMMARY | 2022-07-19 07:46 | XMS_ITS | Encounter Summary ---
:1990 Author Organization [facility] Address [address] [place] [address] Care Team Providers Name Role Phone Elsewhere, Pcp Primary Care Provider Unavailable Reason for Visit Reason Comments Sore Throat pt with 2 1/2 week history o f sinus congestion now presents with sore throat. Throat pain started about 4 days ago, and is getting worse every day. Encounter Details Date Type Department Care Team Description 09/22/2018 Emergency [facility] Marissa Mccormack, Catie lawsonnicole Acute Department D.O. (Primary Dx) [address] [place] [id number] Social History Tobacco Use Types Packs/Day Years [...] do you attend religion or Never 2021 [employer] services? Do you [...] Date Recorded Female 12/02/2021 5:19 PM FLIGHT CONTROL TOWER OPERATOR documented as of this encounter Last Filed Vital Signs Vital Sign Reading Time Taken Comments Blood Pressure 128/88 09/22/2018 9:00 AM FLIGHT CONTROL TOWER OPERATOR Pulse 88 09/22/2018 9:00 AM FLIGHT CONTROL TOWER OPERATOR Temperature 37.5 ??C (99.5 ??F) 09/22/2018 9:00 AM FLIGHT CONTROL TOWER OPERATOR Respiratory Rate 16 09/22/2018 9:00 AM FLIGHT CONTROL TOWER OPERATOR Oxygen Saturation 99% 09/22/2018 9:00 AM FLIGHT CONTROL TOWER OPERATOR Inhaled Oxygen Concentration - - Weight 71.9 kg (158 lb 8.2 oz) 09/22/2018 8:10 AM FLIGHT CONTROL TOWER OPERATOR Height 157 cm (5' 1.81) 09/22/2018 8:10 AM FLIGHT CONTROL TOWER OPERATOR Body Mass Index 29.17 09/22/2018 8:10 AM FLIGHT CONTROL TOWER OPERATOR documented in this encounter Discharge Instructions Discharge InstructionsBuMarissa lopez D.O. - 09/22/2018 8:59 AM CST Take the steroids daily, and take ibuprofen and/or tylenol as needed for pain. You should return to the ED for dehydration, if you are more swollen, have difficulty breathing or cannot swallow. HT CONTROL TOWER OPERATOR AttachmentsThe following attachments cannot be sent through Care Everywhere.Sore Throat (Tamazight)documented in this encounter Medications at Time [...] Pharyngitis Acute Marissa Mccormack D.O. 09/22/18 0917 HT CONTROL TOWER OPERATOR documented in this encounter Plan of Treatment Not on filedocumented as of this encounter Procedures Procedure Name Priority Date/Time Associated Diagnosis Comme nts RAPID STREP A STAT 09/22/2018 8:37 AM Results for this SCREEN FLIGHT CONTROL TOWER OPERATOR procedure are i n the results section. BACTERIAL CULTURE, STAT 09/22/2018 8:37 AM Res ults for this THROAT FLIGHT CONTROL TOWER OPERATOR procedure are i n the results section. documented in this encounter Results Bacterial Culture, Throat (09/22/2018 8:37 AM FLIGHT CONTROL TOWER OPERATOR) [facility] Method Time Signature Throat No growth of 09/24/2018 [facility] Culture Streptococcus 7:07 AM FLIGHT CONTROL TOWER OPERATOR HEALTH pyogenes [facility] LAB Specimen Anatomical Collection Method Collection Time Receive d Time (Source) Location / / Volume Laterality Throat Swab 09/22/2018 8:37 AM 8 3:28 FLIGHT CONTROL TOWER OPERATOR PM FLIGHT CONTROL TOWER OPERATOR Marissa Mccormack D.O. LAB MICROBIOLOGY - GENERAL O RDERABLES Performing Organization Address City/State/ZIP Code Phon e Number [facility] [address] [place] [address] LAB Rapid Strep A Screen (09/22/2018 8:37 AM FLIGHT CONTROL TOWER OPERATOR) P athologist Signature Rapid Strep A Negative Negative 09/22/2018 [facility] Screen 8:52 AM [facility] LAB Specimen Anatomical Collection Method Collection Time Receive d Time (Source) Location / / Volume Laterality Varies (Throat) 09/22/2018 8:37 AM 2017 8:41 FLIGHT CONTROL TOWER OPERATOR AM FLIGHT CONTROL TOWER OPERATOR Marissa Mccormack D.O. LAB MICROBIOLOGY - GENERAL O RDERABLES Performing Organization Address City/State/ZIP Code Phon e Number [address] [address] [facility] documented in this encounter Visit Diagnoses Diagnosis Pharyngitis Acute - Primary documented in this encounter Care Teams Rumper Relationship Specialty Start Date End Date Elsewhere, Pcp PCP - General Family Medicine 01/08/18 01/12/21 documented as of this encounter
--- OUTSIDE RECORDS SUMMARY | 2022-07-19 07:46 | XMS_ITS | Encounter Summary ---
:1990 Author Organization [facility] Address [address] [place] [address] Care Team Providers Name Role Phone Elsewhere, Pcp Primary Care Provider Unavailable Reason for Visit Reason Comments Follow-up Outpatient (Routine) - Closed Specialty Diagnoses / Procedures Referred By Contact Refer red To Contact Family Medicine Ben Arce M.D. [facility] Region [address] [place] [phone] Referral ID Status Reason Start Date Expiration Date Visits Requ ested Visits Authorized [id number] Closed 01/28/2019 01/28/2020 1 1 Encounter Details Date Type Department Care Team Description 02/11/2019 Office Visit Department of Ben Metzger M.D. Thrombosis Superficial Medicine in [facility] [address] Vein Lower Extremity [place], [place] Left (Primary Dx) [address] [place] [address] [place], [place] [phone] (Work) [phone] Social History Tobacco Use Types Packs/Day Years [...] do you attend anabaptist or Never 2021 holiness services? Do you [...] Date Recorded Female 12/02/2021 5:19 PM REFINERY TECHNICIAN documented as of this encounter Last [...] Primary documented in this encounter Care Teams Laser Beam Trim Operator Relationship Specialty Start Date End Date Elsewhere, Pcp PCP - General Family Medicine 01/08/18 01/12/21 documented as of this encounter
[2022-07-19 09:29] LABS: Amnisure Rom* POSITIVE
[2022-07-19 09:49] LABS: Amphetamine Screen Urine Negative (Negative); Barbiturate Screen Urine Negative (Negative); Benzodiazepines Screen Urine Negative (Negative); Cannabinoid Screen Urine Negative (Negative); Cocaine Screen Urine Negative (Negative); Methadone Screen Urine Negative (Negative); Methamphetamines Screen Urine Negative (Negative); Opiate Screen Urine Negative (Negative); Oxycodone Screen Urine Negative (Negative); Phencyclidine Screen Urine Negative (Negative); Tricyclic Antidepressant Urine Negative (Negative)
--- NOTE | 2022-07-19 09:56 | PM.OBHPCS1 ---
OB - H&P: HPI History of Present Illness Chief complaint: Maternity : 3 Para: 1 Narrative: Lulu Mata is a 32 year old female at 36w2d who presents to triage for gross rupture of membrane at 6:30 AM and has been leaking since. Her contractions has gotten more intense. Upon evaluation she was noted to be dayana breech. Discussed risks, benefits, and alternatives with patient and she desires a delivery via section. Review of Systems Narrative: REVIEW OF SYSTEMS: GENERAL: uncomfortable 2/2 to contractions SKIN: Negative NECK: Negative RESPIRATORY: Negative BREAST: Negative CARDIOVASCULAR: Negative GASTROINTESTINAL: Negative GENITOURINARY: Ctx, Leaking of fluid MUSCULOSKELETAL: Negative NEUROLOGICAL: Negative PSYCHIATRIC: Negative ENDOCRINE: Negative HEMATOLOGIC: Negative PFSH PFSH Medical History Asthma Encounter for supervision of high risk in third trimester, antepartum Gestational diabetes Gestational hypertension Superficial thrombophlebitis Surgical History [place] teeth removed Social History Smoking Status: Never smoker How often do you have a drink containing alcohol: never AUDIT-C Alcohol total score: 0 Non-prescribed substance use: denies use Little interest or pleasure in doing things: not at all Feeling down, depressed, or hopeless: several days Meds Home Medications and Allergies Home Medications Medication Instructions Recorded Confirmed Type PNV no.151-iron 27 mg-folic 800 cap PO 05/01/22 07/14/22 History mcg-omega3 260 [id number]-[id number]-fish capsule ( Multi-DHA (with vitamin K)) aspirin 81 mg capsule 81 mg PO QDAY 05/01/22 07/19/22 History Allergies Allergy/AdvReac Type Severity Reaction Status Date / Time No Known Drug Allergies Allergy Verified 07/19/22 09:58 OB - H&P: Exam Physical Exam: Vital signs: Temp Pulse Resp BP Pulse Ox 98 F 76 18 128/97 H 99 07/19/22 08:32 07/19/22 08:32 07/19/22 08:32 07/19/22 08:32 07/19/22 08:49 Narrative: Physical exam: General: Uncomfortable in bed Psych: Alert and oriented x3, full affect HEENT: Normocephalic, atraumatic, Heart: Regular rate and rhythm, no murmur rub or gallop Lungs: Clear to auscultation bilaterally Abdomen: Gravid. Palpable contractions. +FM palpated Lower extremities: +1 edema bilaterally; no erythema Pelvic exam: Deferr to OR BSUS: Dayana breech confirmed Assessment and Plan Assessment and plan (1) Encounter for supervision of high risk in third trimester, antepartum: Status: Acute (2) SROM (spontaneous rupture of membranes): Problem comment: Since 6:30 AM. Gross ROM Patient in spontaneous labor Status: Acute (3) Gestational diabetes mellitus (GDM): Status: Acute (4) Asthma: Status: Acute (5) Gestational hypertension: Problem comment: Pre-E labs obtain on admission Status: Acute (6) Breech presentation: Problem comment: - Will deliver via c/s Status: Acute
[2022-07-19 10:07] LABS: SARS PCR* POSITIVE SARS-CoV-2 (Negative)
[2022-07-19 10:10] LABS: Hemoglobin* 13.3 gm/dL (12.0-16.0)
[2022-07-19] MEDS: LACTATED RINGERS 1000 ML 1,000 ML IV ×3 (10:20→18:05)
[2022-07-19] MEDS: CEFAZOLIN 2 GM in 0.9 % SODIUM CHLORIDE Mini-bag 100 ML IVPB (11:05)
[2022-07-19 11:25] LABS: Aspartate Amino Transferase* 20 U/L (12-35); Creatinine* 0.5 mg/dL (0.5-1.5); Est. Creatinine Clearance* 114.95; Estimated Glomerular Filt Rate 127 ml/min
[2022-07-19 11:26] LABS: Alanine Aminotransferase* 13 U/L (4-35); Blood Urea Nitrogen* 13 mg/dL (5-24)
--- NOTE | 2022-07-19 12:02 | P.NB_ITS ---
Nerve Block Nerve Block Time Seen by Provider: 12:02 Date Seen: 07/19/22 Type of block requested by surgeon for post-operative analgesia: TAP Side: bilateral Time out performed: Yes Verification of patient name: Yes Verification of date of : Yes Site marking: site marked Name of person performing procedure: [place] Continuous monitoring Was continuous monitoring of O2 sat, B/P, equipment monitor phototypesetting, recorded every 15 minutes?: Yes Procedure Checklist: sterile prep, needles and gloves Ultrasound guided. Images saved: Yes Medications given in 5ml increments after negative aspiration: Marcaine %: 0.25 mL: 30 Needle gauge: 20 and Exparel mL: 10 Patient tolerated procedure well: Yes Additional comments: Needle noted adjacent to nerve Block Charges Block Charge (with Pro Fee): TAP Bilateral Use of Ultrasound Machine for Block: Yes- US Guidance/pain block
--- NOTE | 2022-07-19 12:30 | W.ANESCHARGE ---
Anesthesia Charges Start Date/Time Anesthesia Start Date: 07/19/22 Anesthesia Start Time: 10:54 Stop Date/Time Anesthesia Stop Date: 07/19/22 Anesthesia Stop Time: 12:11 Summary Emergency: Yes
--- NOTE | 2022-07-19 12:32 | W.ANESCHARGE ---
Anesthesia Charges Start Date/Time Anesthesia Start Date: 07/19/22 Anesthesia Start Time: 10:54 Stop Date/Time Anesthesia Stop Date: 07/19/22 Anesthesia Stop Time: 12:11 Summary Emergency: Yes
--- NOTE | 2022-07-19 12:37 | P.OBPRC_ITS ---
Procedure Pre-op/Post-op diagnoses: Pre-Op/Post-Op Diagnoses Operation Date: 07/19/22 10:15 Procedure Done: Global Procedure Details: Procedures Operation Date: 07/19/22 10:15 Actual Procedure Side Surgeon p Section Devorah Ortega MD [employer] Labourer: Migdalia Christie Estimated blood loss (mL): 614 Disposition: floor Anesthesia type: Spinal Narrative: DELIVERY BY SECTION Date of Service:?07/19/2022 at 1121 Summary: Admitted for spontaneous labor,?Primary Lower uterine transverse section, Pfannenstiel, Closed with?sutures, EBL?614?cc, No complications, Findings: Normal uterus, bilateral ovaries and tubes, ?8,9. ? Primary Indication: Malpresentation in spontaneous labor Procedures: Primary Lower uterine transverse section Specimens Removed: Placenta Surgeon:? Devorah Ortega MD ? [employer] Labourer:? Migdalia Christie Report: Prophylactic antibiotic, 2 g of Ancef was given before patient was taken to OR. ?After arrival to the operating room patient was placed in the supine position with left lateral tilt after administration of spinal anesthesia. ? Laparotomy A?pfannenstiel?incision was made through the anterior abdominal wall with #10 scalpel approximately 2 cm above the pubic symphysis. ?The incision was extended sharply with the #10 scalpel?through the subcutaneous tissue to the level of fascia. ?The fascia was entered sharply with a #10 scalpel (Pfannenstiel) in the midline and extended in semi-elliptical fashion with Bowden scissor. The underlying muscles were dissected off the overlying fascia by grasping the superior aspect of fascia with two tommy clamps and blunt dissection was used along the midline. The fascia was further from rectus muscle with Bowden scissor and/or cautery. In similar fashion, the lower aspect of fascia was also grasped with two Tommy clamps and both blunt and sharp dissection was used to separate fascia from rectus muscle. ?The rectus muscles were in the midline bluntly with digits. The peritoneum was then entered bluntly. The peritoneal incision was then extended superiorly and inferiorly under direct visualization with care being taken to avoid bladder and bowel. No adhesions were noted. The peritoneal incision was enlarged bluntly by lateral traction from the surgeon's and assistant hvac mechanic's hand. Ron retractor was inserted into the abdomen. Delivery ?? ?A low transverse?hysterotomy was made then with #10 scalpel and extended laterally and cephalad with fingers in a low transverse fashion with Manu Cruz technique?with care being taken to avoid injury to the fetus. The amniotic cavity (membrane) was then entered with spontaneous rupture of membrane, and the amniotic fluid was noted to be?clear, fetus was delivered with breech maneuver.?With delivery?of the baby,?no extension was noted. Placenta was delivered spontaneously with steady traction on cord and manual separation of placenta from uterine wall. ? Closure ? Uterine cavity was cleaned after placental delivery with lap sponge x 2. The hysterotomy was closed in one layer with stitches?using 0 vicryl with continuous locking stitches. Hemostasis was achieved as needed with electrocautery. The ovaries/tubes/urine surface were evaluated. They were found to be normal. Fascia was closed with?running?stitches using 0 vicryl. Hemostasis was checked for and found to be adequate.?The subcutaneous layer was closed with running Vicryl sutures.?The skin was closed with 3-0 monocryl subcuticular sutures?. The incision was cleaned and covered with a compression bandage and the procedure considered terminate at this time. Intraoperative Complications:?None QBL:?614 cc Uterotonics:?40 units of pitocin ? Disposition: The patient?tolerated?the procedure well. ?She was recovered in Obstetric PACU?for close monitoring?in stable?condition, with a contracted?uterus and normal?transvaginal bleeding. The was sent to mother?s bedside. The placenta was not sent to pathology. OB Delivery Proc Additional Procedures Tubal Ligation at the time of : No
[2022-07-19] MEDS: diphenhydrAMINE 50 MG/ML inj 12.5 MG IVP (14:57)
[2022-07-19 15:58] LABS: Total Protein Urine < 5 mg/dL
[2022-07-19 15:59] LABS: Creatinine Urine 127.9 mg/dL
[2022-07-19] MEDS: KETOROLAC 30 MG/ML inj IVP (18:06)
[2022-07-19] MEDS: ACETAMINOPHEN 500 MG TABLET 1000 MG PO (21:22)
[2022-07-20] VITALS (15 sets, daily range): BP systolic 116–136; BP diastolic 71–87; PULSE 77–92; RESP 16–18; TEMP 36.5–37; O2SAT 95–100
[2022-07-20] MEDS: KETOROLAC 30 MG/ML inj IVP ×4 (00:03→18:35)
[2022-07-20] MEDS: ACETAMINOPHEN 500 MG TABLET 1000 MG PO ×3 (03:39→17:01)
[2022-07-20 07:33] LABS: Hemoglobin* 10.4 gm/dL (12.0-16.0)
--- NOTE | 2022-07-20 07:52 | PM.OBPNCS1 ---
OB - PN: A/P Assessment and Plan (1) care and examination immediately after delivery: Status: Acute (2) Status post section: Status: Acute (3) Gestational diabetes mellitus (GDM): Status: Acute (4) Asthma: Status: Acute (5) Gestational hypertension: Problem details: Pre-E labs obtain on admission Status: Acute (6) Lactating mother: Status: Acute Plan day: 1 Plan: routine postop care Comments: Lactating mother: May see if desired. Anticipate discharge home tomorrow or Sunday. OB - PN: Subj Subjective Date Seen: 07/20/22 Interval history: Rounding status post section on 07/19/2022 Patient comments: no complaints, pain well controlled, incisional pain, tolerating diet and flatus present status: and doing well feeding status: exclusively Narrative: The patient is a 32 year old G 3 P 2012 at 36 2/7 weeks gestation that was admitted to the Center on 07/19/22 for spontaneous rupture of membranes with labor. She had an uncomplicated section delivery for breech presentation in labor. She delivered a viable female infant. She is breast feeding and reports things are going okay. the patient has done well. She continues to have a urinary catheter in place and has only been up moving a few times. The goal today is to removed the catheter, start ambulating more, and pain control. She does want to shower today if she is able. She has passed flatus but has not yet had a bowel movement. OB - PN: Obj Exam Physical Exam: Vital signs: Temp Pulse Resp BP Pulse Ox O2 Del Method 98.5 F 82 16 127/81 96 07/20/22 07:31 07/20/22 07:31 07/20/22 07:31 07/20/22 07:31 07/20/22 07:07/20/22 07:31 Constitutional: Constitutional: no acute distress and cooperative Routine Respiratory Exam: Respiratory: Present CTA bilaterally Routine Cardiovascular Exam: Cardiovascular: Present RRR Routine Abdominal Exam: Abdominal: Present soft Fundus: Present firm (U/1) Routine Extremities Exam: Extremities: Present full ROM and normal inspection Routine Skin Exam: Comments: Lower abdominal transverse incision: Dressing in place; clean, dry and intact. To be removed at 24 hours post c/s Routine Neurological Exam: Neurological: Present alert, oriented X3 and normal speech Routine Psychiatric Exam: Psychiatric: Present normal affect and cooperative Wound Management: Comments: See skin for incision Urinary Catheter Management: Urethral: Cath placed during this visit: yes Urethral indwelling: Yes Reason for continuing: surgical procedure (To be removed this am.) Insertion date: 07/19/22 Insertion time: 11:08 OB - PN: Obj Data Labs Labs: Laboratory Results - last 24 hr 07/19/22 07/19/22 07/19/22 09:01 09:29 09:31 Hgb BUN Creatinine Estimated Creat Clear Estimated GFR AST ALT Urine Creatinine Protein/Creatinin Ratio Urine Total Protein Membrane Rupture POSITIVE Urine Opiates Screen Negative Ur Oxycodone Screen Negative Urine Methadone Screen Negative Ur Propoxyphene Screen Negative Ur Barbiturates Screen Negative U Tricyclic Antidepress Negative Ur Phencyclidine Scrn Negative Ur Amphetamines Screen Negative U Methamphetamines Scrn Negative U Benzodiazepines Scrn Negative Urine Cocaine Screen Negative U Marijuana (THC) Screen Negative SARS-CoV-2 (PCR) POSITIVE SARS-CoV-2 A Blood Type Antibody Screen 07/19/22 07/19/22 07/19/22 09:55 09:55 09:56 Hgb 13.3 BUN 13 Creatinine 0.5 Estimated Creat Clear 114.95 Estimated GFR 127 AST 20 ALT 13 Urine Creatinine Protein/Creatinin Ratio Urine Total Protein Membrane Rupture Urine Opiates Screen Ur Oxycodone Screen Urine Methadone Screen Ur Propoxyphene Screen Ur Barbiturates Screen U Tricyclic Antidepress Ur Phencyclidine Scrn Ur Amphetamines Screen U Methamphetamines Scrn U Benzodiazepines Scrn Urine Cocaine Screen U Marijuana (THC) Screen SARS-CoV-2 (PCR) Blood Type O Positive Antibody Screen NEGATIVE 07/19/22 07/20/22 09:56 07:13 Hgb 10.4 L BUN Creatinine Estimated Creat Clear Estimated GFR AST ALT Urine Creatinine 127.9 Protein/Creatinin Ratio 0.00 Urine Total Protein < 5 Membrane Rupture Urine Opiates Screen Ur Oxycodone Screen Urine Methadone Screen Ur Propoxyphene Screen Ur Barbiturates Screen U Tricyclic Antidepress Ur Phencyclidine Scrn Ur Amphetamines Screen U Methamphetamines Scrn U Benzodiazepines Scrn Urine Cocaine Screen U Marijuana (THC) Screen SARS-CoV-2 (PCR) Blood Type Antibody Screen
[2022-07-20] MEDS: DOCUSATE SODIUM 100 MG CAPSULE PO (09:40)
[2022-07-20] MEDS: LANOLIN CREAM 1 APPLIC TOPICAL (09:41)
--- NOTE | 2022-07-20 10:58 | PC.SOCIAL ---
Referral to medical social worker for substance abuse due to labor. Pt. and baby both have negative tox screens. No further medical social worker needed.
[2022-07-20] MEDS: IBUPROFEN 600 MG TABLET PO (21:40)
[2022-07-21] MEDS: ACETAMINOPHEN 500 MG TABLET 1000 MG PO ×2 (00:31→08:06)
[2022-07-21] MEDS: IBUPROFEN 600 MG TABLET PO (04:48)
--- NOTE | 2022-07-21 07:41 | PM.OBPNCS1 ---
OB - PN: A/P Assessment and Plan (1) Status post section: Status: Acute (2) Lactating mother: Status: Acute (3) Gestational diabetes mellitus (GDM): Status: Acute (4) Asthma: Status: Acute (5) Gestational hypertension: Problem details: Pre-E labs obtain on admission Status: Acute OB - PN: Subj Subjective Time Seen by Provider: 07:41 Date Seen: 07/21/22 Interval history: Rounding status post section on 07/19/2022 Lulu is a 32 year old G 3 now P 2 at 36 2/7 weeks gestation that was admitted to the Center on 07/19/22 for PPROM. Baby was found to be breech and progressed to a delivery with Dr. Ortega.. She had an uncomplicated delivery. She delivered a viable female infant, Taltia Weems. She is breast feeding and it is going well. was complicated by HTN and GDM. Pt has asthma and does not currently have her inhaler but feels she has been having increase in symptoms last week while at home, would like a refil sent. the patient has done well, urinating with no concerns, passing flatus, but has not had a BM yet. Abdomen is very tender to touch in lower right quadrant. Has been taking tylenol and iburofen for pain, but states she might need something stronger today due to break through pain. Patient comments: tolerating diet, flatus present and other (Pain mostly well controlled except with pressure on abdomen, requested increased pain medication for going home today.) feeding status: exclusively OB - PN: Obj Exam Physical Exam: Vital signs: Temp Pulse Resp BP Pulse Ox O2 Del Method 97.7 F 80 18 136/87 100 07/20/22 23:52 07/20/22 23:52 07/20/22 23:52 07/20/22 23:52 07/20/22 23:52 07/20/22 23:52 Constitutional: Constitutional: no acute distress Routine HEENT Exam: Head: Present normocephalic Eye: Present normal appearance Routine Neck Exam: Neck: Present full ROM Routine Respiratory Exam: Respiratory: Present CTA bilaterally Routine Cardiovascular Exam: Cardiovascular: Present RRR Routine Abdominal Exam: Abdominal: Present normal bowel sounds, soft and tenderness Fundus: Present firm (1/u) Routine Extremities Exam: Extremities: Present full ROM; Absent pedal edema Routine Back/Spine/Pelvis Exam: Back/Spine: Present full ROM Routine Skin Exam: Skin: Present dry and warm; Absent rash Routine Neurological Exam: Neurological: Present alert and oriented X3 Detailed Neurological Exam: Coma Scale: Eye Opening: Spontaneous (4) Verbal Response: Orientated (5) Routine Psychiatric Exam: Psychiatric: Present normal affect, normal thought process, cooperative, good insight and good judgment Wound Management: Method: adhesive Examination: Present clean, dry and intact; Absent bloody drainage or serosanguinous drainage Urinary Catheter Management: Urethral: Cath placed during this visit: yes, but has since been removed by the nurse Urethral indwelling: Yes Reason for continuing: surgical procedure Insertion date: 07/19/22 Insertion time: 11:08 Removal date: 07/20/22 Removal time: 08:23 OB - PN: Obj Data Labs Labs: Laboratory Results - last 24 hr 07/20/22 07:13 Hgb 10.4 L
--- NOTE | 2022-07-21 07:54 | PM.OBDSCS1 ---
Documented by User: Junie Vargas CNM 07/21/22 08:08 DS: Providers Provider Time Seen by Provider: 07:30 Date Seen: 07/21/22 Date of admission: 07/19/22 09:42 Primary care physician: Not a Local Provider Admitting Clinician: Kennedi Robison CNM Consults: 07/19/22 09:31 Consult to Apartment Maintenance Manager [CONS] Routine Comment: Reason for Consult:: Substance Abuse Screening Attending Physician on discharge: Junie Vargas CNM Date of Discharge: 07/21/22 DS: Diagnosis Discharge Diagnosis (1) Status post section: Status: Acute (2) Lactating mother: Status: Acute (3) Gestational hypertension: Status: Acute Problem details: Pre-E labs obtain on admission (4) Abdominal pain affecting : Status: Acute (5) Asthma: Status: Acute (6) Migraine: Status: Acute Exam Const: Vital Signs, click to edit/add: Vital Signs - 24 hr 07/20/22 17:00 07/20/22 08:00 07/20/22 09:00 Temperature 98.5 F Pulse Rate [Pulse Oximeter] 92 Respiratory Rate 16 16 16 Blood Pressure [Ri ght Arm] 128/71 Pulse Oximetry 98 Oxygen Delivery Me thod Room Air 07/20/22 10:00 07/20/22 11:00 07/20/22 23:52 Temperature 97.7 F Pulse Rate [Pulse Oximeter] 80 Respiratory Rate 16 16 18 Blood Pressure [Ri ght Arm] 136/87 Pulse Oximetry 100 Oxygen Delivery Me thod Room Air Documenting provider has reviewed patient's vital signs: yes Common normals: no apparent distress, oriented x3, healthy appearing, alert and well nourished General appearance: cooperative, well kempt and well developed Orientation/consciousness: Yes awake, Yes oriented to person, Yes oriented to place and Yes oriented to time HENMT: Common normals: normocephalic and external nose normal Head and scalp: normocephalic Nose: external nose normal Eye: General eye: normal appearance of both eyes Neck & C-Spine: Common normals: full ROM and supple General: normal visual inspection Cervical spine: cervical ROM normal Chest: Common normals: inspection of chest normal and palpation of chest normal Resp: Common normals: normal respiratory effort, no retractions, no use of accessory muscles and clear to auscultation bilaterally Effort & inspection: able to speak in complete sentences and symmetric chest movement Auscultation: clear to auscultation bilaterally Cardio: Common normals: regular rate and regular rhythm Rate: regular rate Rhythm: regular rhythm GI: Common normals: Normal to inspection, nondistended, normoactive bowel sounds present and soft to palpation Inspection: normal to inspection and other (Incision well approximated, no bleeding or discharge. Dressing [dry]) Auscultation: normoactive bowel sounds Palpation: soft and tender (Very tender RLQ) : Uterus: 1/U and firm Lochia: small Back & Pelvis: Common normals: thoracic and lumbar spine normal to inspection Thoracic spine/upper back: normal to inspection and thoracic ROM normal Lumbar spine/lower back: normal to inspection and lumbar ROM normal Extremity: Common normals: full ROM General: normal exam except as noted; no edema ([place], +1) Neuro: Common normals: oriented x3 Sensorium/orientation: awake, alert, oriented to person, oriented to place and oriented to time Speech: speech normal Psych: Common normals: mental status grossly normal, thought process normal and speech normal Appearance: grossly normal and well kempt Attitude: calm and engaged Activity/motor behavior: appropriate eye contact Speech: normal speech Thought process: normal thought process Thought content: normal thought content Attention/concentration: attention grossly intact Memory/cognition: memory grossly intact Insight: insight good Judgement: judgment good Skin: Common normals: no rashes or lesions noted General skin exam: no rashes or lesions noted Trauma: laceration (Low transverse incision - dry, intact, no drainage or bleeding) OB - DS: Summary Hospital Course Hospital Course: Rounding status post section on 07/19/2022 Lulu is a 32 year old G 3 now P 2 at 36 2/7 weeks gestation that was admitted to the Center on 07/19/22 for PPROM. Baby was found to be breech and progressed to a delivery with Dr. Ortega.. She had an uncomplicated delivery. She delivered a viable female , Talita Weems. She is breast feeding and it is going well. was complicated by HTN and GDM. Pt has asthma and does not currently have her inhaler but feels she has been having increase in symptoms last week while at home, would like a refil sent. the patient has done well, urinating with no concerns, passing flatus, but has not had a BM yet. Lochia is small to minimal and no clots per pt. Abdomen is very tender to touch in lower right quadrant, difficult to assess fundal involution. Has been taking tylenol and iburofen for pain, but states she might need something stronger today due to break through pain. Plan to discharge home today. Peripartum Data Procedures: Procedures Operation Date: 07/19/22 10:15 Actual Procedure Side Surgeon p Section Devorah Ortega MD Infant Gender: Female (Talita Weems) Infant Discharge Plan: Home Status at Discharge Functional status at discharge: independent ambulation Overall status at discharge: patient is progressing back to baseline Time Spent with Patient Time attestation: Total time spent providing and/or coordinating discharge services: Time spent: Less than 30 minutes Discharge Plan Discharge Disposition: Home, Self-Care Date of Admission: 07/19/22 09:42 Attending Provider on Discharge: Junie Vargas Primary Care Provider: Provider,Not a Local Condition: Stable Anticipated Discharge Date/Time: 07/21/22 08:00 Discharge Medications: New acetaminophen 500 mg Tablet 1,000 mg PO Q6H PRN (Reason: Pain) Qty: 0 0RF ibuprofen 600 mg Tablet 600 mg PO Q6H PRN (Reason: Pain) Qty: 60 0RF oxycodone 5 mg Tablet 5 - 10 mg PO Q4H PRN (Reason: Pain) Qty: 20 0RF docusate sodium 100 mg capsule 100 mg PO DAILY PRNQty: 100 0RF Rx Instructions: take 1 cap 1-2 times a day as needed for constipation ibuprofen 600 mg tablet 600 mg PO Q6H PRNQty: 60 0RF oxycodone 5 mg tablet 5 mg PO Q4H PRN (Reason: pain) Qty: 20 0RF Continued Multi-DHA(with vit K) 27 mg iron-800 mcg-260 mg capsule 1 cap PO DAILY aspirin 81 mg capsule 81 mg PO QDAY omeprazole 40 mg capsule,delayed release(DR/EC) 40 mg PO QDAY Qty: 90 1RF (DME) blood pressure test kit-medium Kit See Rx Instructions .Route Qty: 1 0RF Rx Instructions: As directed (DME) Blood Glucose Meter Mis See Rx Instructions .MEDSUPPLY Qty: 1 0RF Rx Instructions: As directed (DME) Test Strips Misc See Rx Instructions .MEDSUPPLY Qty: 100 3RF Rx Instructions: Test blood sugar 4 times daily. (DME) lancets Misc See Rx Instructions .MEDSUPPLY Qty: 100 3RF Rx Instructions: Test blood sugar 4 times daily. metformin 500 mg tablet extended release 24hr 500 mg PO QPM Qty: 90 1RF Discharge Orders: Discharge Order (Routine); Ordered 07/21/22 Ordered By: Junie Vargas Patient Education: OB /Breast Feeding Activity Restrictions/Additional Instructions: Follow up in 1 week for blood pressure check - can be nurse visit Follow up in 2 weeks for an incision check/2 week visit Follow up in 6 weeks for 6 week check and 2 hour glucose test. Activity Level: Activity as Tolerated Discharge Diet: Regular Follow Up Appointments: [facility] [Provider Group] Forms: [employer] Info Instructions Documented by User: Kennedi Robison CNM 07/21/22 08:36 DS: Diagnosis Discharge Diagnosis (1) Status post section: Status: Acute (2) Lactating mother: Status: Acute (3) Gestational hypertension: Status: Acute Problem details: Pre-E labs obtain on admission (4) Abdominal pain affecting : Status: Acute (5) Asthma: Status: Acute (6) Migraine: Status: Acute OB - DS: Summary Hospital Course Hospital Course: Rounding status post section on 07/19/2022 Lulu is a 32 year old G 3 now P 2 at 36 2/7 weeks gestation that was admitted to the Center on 07/19/22 for PPROM. Baby was found to be breech and progressed to a delivery with Dr. Ortega.. She had an uncomplicated delivery. She delivered a viable female , Talita Weems. She is breast feeding and it is going well. was complicated by HTN and GDM. Pt has asthma and does not currently have her inhaler but feels she has been having increase in symptoms last week while at home, would like a refill sent. the patient has done well, urinating with no concerns, passing flatus, but has not had a BM yet. Lochia is small to minimal and no clots per pt. Abdomen is very tender to touch in lower right quadrant, difficult to assess fundal involution. Has been taking tylenol and iburofen for pain, but states she might need something stronger today due to break through pain. Plan to discharge home today. Peripartum Data complications: none Discharge Plan Discharge Disposition: Home, Self-Care Date of Admission: 07/19/22 09:42 Attending Provider on Discharge: Junie Vargas Primary Care Provider: Provider,Not a Local Condition: Stable Anticipated Discharge Date/Time: 07/21/22 08:00 Discharge Medications: New acetaminophen 500 mg Tablet 1,000 mg PO Q6H PRN (Reason: Pain) Qty: 0 0RF ibuprofen 600 mg Tablet 600 mg PO Q6H PRN (Reason: Pain) Qty: 60 0RF oxycodone 5 mg Tablet 5 - 10 mg PO Q4H PRN (Reason: Pain) Qty: 20 0RF docusate sodium 100 mg capsule 100 mg PO DAILY PRNQty: 100 0RF Rx Instructions: take 1 cap 1-2 times a day as needed for constipation ibuprofen 600 mg tablet 600 mg PO Q6H PRNQty: 60 0RF oxycodone 5 mg tablet 5 mg PO Q4H PRN (Reason: pain) Qty: 20 0RF Continued Multi-DHA(with vit K) 27 mg iron-800 mcg-260 mg capsule 1 cap PO DAILY aspirin 81 mg capsule 81 mg PO QDAY omeprazole 40 mg capsule,delayed release(DR/EC) 40 mg PO QDAY Qty: 90 1RF (DME) blood pressure test kit-medium Kit See Rx Instructions .Route Qty: 1 0RF Rx Instructions: As directed (DME) Blood Glucose Meter Misc See Rx Instructions .MEDSUPPLY Qty: 1 0RF Rx Instructions: As directed (DME) Test Strips Misc See Rx Instructions .MEDSUPPLY Qty: 100 3RF Rx Instructions: Test blood sugar 4 times daily. (DME) lancets Misc See Rx Instructions .MEDSUPPLY Qty: 100 3RF Rx Instructions: Test blood sugar 4 times daily. metformin 500 mg tablet extended release 24hr 500 mg PO QPM Qty: 90 1RF Discharge Orders: Discharge Order (Routine); Ordered 07/21/22 Ordered By: Junie Vargas Patient Education: OB /Breast Feeding Activity Restrictions/Additional Instructions: Follow up in 1 week for blood pressure check - can be nurse visit Follow up in 2 weeks for an incision check/2 week visit Follow up in 6 weeks for 6 week check and 2 hour glucose test. Activity Level: Activity as Tolerated Discharge Diet: Regular Follow Up Appointments: [facility] [Provider Group] Forms: MyHealth Info Instructions
[2022-07-21 08:00] VITALS: BP 130/85; PULSE 92; RESP 16; TEMP 37; O2SAT 96
[2022-07-21] MEDS: OXYCODONE 5 MG TABLET PO (08:06)
[2022-07-21] MEDS: DOCUSATE SODIUM 100 MG CAPSULE PO (08:07)
== END 2022-07-21 11:31 | disposition home or self-care (01) | DRG 788 ==
LOC: OB OUT 09:49 → OB 09:49
PROVIDERS: Obstetrics & Gynecology; Admitting Provider Advanced Practice Midwife; Visit Provider Advanced Practice Midwife
PROC: 10D00Z1 Extraction of Products of Conception, Low, Open Approach (ICD-10-PCS; CPT 59514; principal; 2022-07-19 10:00)
DX: O42.013 Preterm premature rupture of membranes, onset of labor within 24 hours of rupture, third trimester (principal); O13.4 Gestational [pregnancy-induced] hypertension without significant proteinuria, complicating childbirth; O24.429 Gestational diabetes mellitus in childbirth, unspecified control; O32.1XX0 Maternal care for breech presentation, not applicable or unspecified; J45.909 Unspecified asthma, uncomplicated; G43.909 Migraine, unspecified, not intractable, without status migrainosus; Z3A.36 36 weeks gestation of pregnancy; Z37.0 Single live birth
CPT/HCPCS: 01961; 36415; 64488; 76942; 80306; 82565; 82570; 82947; 84112; 84156; 84450; 84460; 84520; 85018; 85025; 86850; 86900; 86901; 87635; 99140; A9270; C9290; J0690; J1100; J1200; J1885; J2274; J2370; J2405; J2590; J3490; J7120

== ENCOUNTER 2024-08-29 10:46 | Outpatient (CLI) | payer MEDICAID, SELFPAY ==
--- OUTSIDE RECORDS SUMMARY | 2024-08-29 10:51 | XMS_ITS | Encounter Summary ---
Author Organization [facility] Address [address] [address] Phone Care Team Providers Care Commutator Presser Name Role Phone Elsewhere, Pcp Primary Care Provider Unavailabl e Reason for Visit * Reason Comments Signs Of Labor Pt states she has be en leaking clear fluid since last evening between 8pm-10pm. Encounter Details Date Type Department Care Team (Late st Contact Info) Description 07/28/2024 10:21 AM CDT - 07/28/2024 12:39 PM CDT Hospital Encounter [facility] [address] [place] [phone] Timoteo Chavira MD PROJECT DEVELOPMENT MANAGER [address] [phone] Asher Holt MD [address] [facility] [address] [place] [phone] Discharge Disposition: Home and/or Self Care Social History Tobacco Use Types Packs/Day Years Used Date Smoking Tobacco: Never Passive Smoke Exposure: Never Smokeless Tobacco: Never Alcohol Use Standard Drinks/Week Comments Not Currently 0 (1 standard drink = 0.6 oz pur e alcohol) Estimated Date of Delivery Comme nts Yes 09/10/2024 Based on Other B asis Sex and Gender Information Value Date Recorded Sex Assigned at Female 07/28/2024 11:04 AM CDT Legal Sex Female 9:13 AM CDT Gender Identity Female 07/28/2024 11:04 AM CDT Sexual Orientation Straight 07/28/2024 11 :04 AM CDT documented as of this encounter Last Filed Vital Signs Vital Sign Reading Time Taken Comments Blood Pressure 105/75 07/28/2024 10:58 AM CDT Pulse 86 07/28/2024 10:58 AM CDT Temperature 35.9 ??C (96.6 ??F) 07/28/2024 10:30 AM C DT Respiratory Rate 18 07/28/2024 11:08 AM CDT Oxygen Saturation - - Inhaled Oxygen Concentration - - Weight - - Height 152.4 cm (5') 07/28/2024 11:08 AM CDT Body Mass Index - - documented in this encounter Discharge Instructions * Instructions* Celina Bella RN - 07/28/2024 12:32 PM CDT Outpatient Triage Discharge Instructions Estimated Date of Delivery: Estimated Date of Delivery: 09/10/24 Weeks: 33w5d You were seen in [facility]; Dr Holt has been contacted. PLEASE RETURN IF: Contractions are longer, stronger, and/or closer together Membranes rupture, a gush or trickle of fluid from vagina Bright red bleeding from the vagina Severe persistent nausea and vomiting A fever above 100??F A headache not relieved by Tylenol or other over the counter pain reliever Any blurred vision or double vision Continuous abdominal pain Decrease in movement (if you do not feel your baby move 10 times in 4 hours). If you have any other concerns regarding yourself or your baby, either call or return The care you receive in the Obstetrics Department should not be substituted for your OB Clinic appointments. Keep your scheduled appointment with your OB doctor. Comments: Call or Come in if ANY concerns [facility]: [phone] documented in this encounter Medications at Time of Discharge labetalol (Trandate) 100 MG tablet Take 100 mg by mouth two times a day. 28-0.8 MG Tablet 06/19/2024 ketone - urine test (Ketostix) strip USE 1 STRIP ONCE DAILY FOR 1 WEEK, THEN WEEKLY IF NEGATIVE. 03/03/2024 aspirin EC 81 MG tablet Take 81 mg by mouth one time a day. Blood Glucose Monitoring Suppl (Accu-Chek Guide) w/Device Kit USE TO TEST BLOOD SUGAR 4 TIMES DAILY OR DIRECTED 02/29/2024 Accu-Chek Guide USE 1 STRIP FOUR TIMES A DAY 06/19/2024 NovoLOG FlexPen 100 UNIT/ML pen injection TAKE 6 UNITS WITH BREAKFAST, MAY TITRATE UP TO 50 UNITS DAILY 06/08/2024 Levemir FlexPen 100 UNIT/ML pen injection 50 Units at bedtime. 06/02/2024 BD Pen Needle Mi 2nd Gen 32G X 4 MM Misc USE 4 PEN NEEDLES A DAY OR DIRECTED 05/09/2024 lancets, Accu-Chek Softclix, (Accu-Chek Softclix) TEST FOUR TIMES A DAY 06/30/2024 metFORMIN (Glucophage) 500 MG tablet Take 500 mg by mouth two times a day. 06/06/2024 omeprazole (PriLOSEC) 10 MG delayed-release capsule 06/19/2024 loratadine (Claritin) 10 MG tabletIndications :Acute non-recurrent sinusitis, unspecified location Take 1 Tablet by mouth one time a day. Take on an empty stomach. 30 Tablet 07/02/2024 documented as of this encounter Discharge Disposition Disposition Code Departure Means Destination Home and/or Self Senior Care documented in this encounter Progress Notes * Celina Bella RN - 07/28/2024 12:39 PM CDT Patient discharge education and instructions completed by RN. Patient verbalized understanding and readiness for discharge. Planned follow up with provider as previously scheduled later this week. Stressed to pt and the importance of seeing primary OB staff so best care is provided to she and baby. Patient was discharged to Home or with family at [phone] accompanied by Self to car. documented in this encounter Procedure Notes * Asher Holt MD - 07/28/2024 12:39 PM CDT Outpatient NonStress Test 34 year old at 33w5d presents to triage with complaints of SROM EXTERNAL MONITORING: Baseline: 140 bpm Variability: moderate Accelerations: present Decels: absent Quay: irregular Results of NST: Reactive Assessment and Plan: 34 year old at 33w5d with reactive NST Discharge home. Follow up care as scheduled. Continue twice weekly testing as scheduled with her outside clinic. Asher Holt MD documented in this encounter Miscellaneous Notes * OB Comments - Linda Hairston RN - 07/28/2024 10:30 AM CDT Patient arrived to labor via wheelchair accompanied by . Patient is a . Pt states shestarted leaking clear fluid last night. She is unsure of time but thinks it was between 8-10 pm. Ptstates she has been having ctxs on/off since then, but unable to tell me timing or length of ctxs. Pt jumps when I touch her abdomen, abd palpated during a ctx- mild to moderate palpitation. Pt states she had care at [facility] in [place], and she was in the hospital last week for her blood pressure, but left AMA. Per pt she delivered 1st at 30 wks vaginally for Pre-E and 2nd was at 36 wk for SROM. The 2nd delivery was c/s for breach presentation.. Patient reports normal movement. Patient oriented to room and EFM was applied. Patient appears to be in stable condition. Will contact next in line for unclaimed patient. Will continue to monitor. documented in this encounter Plan of Treatment Not on file documented as of this encounter Procedures Procedure Name Priority Date/Time Associated Diagnosis Comments URINALYSIS, REFLEX TO CULTURE Routine 07/28/2024 11:44 AM CDT PLACENTAL ALPHA MICROGLOBULIN-1, ROM Routine 07/28/2024 10:52 AM CDT documented in this encounter Results * (ABNORMAL) URINALYSIS, REFLEX TO CULTURE (07/28/2024 11:44 AM [facility]) UA Color Ronda(A) Light Yellow, Yellow 07/28/2024 12:14 PM [facility] Urine Appearance Slightly Cloudy(A) Clear 07/28/2024 12:14 PM [facility] Urine Specific [place] 1.005 1.005 - 1.030 07/28/2024 12:14 PM [facility] Urine pH 7.0 5.0 - 8.0 07/28/2024 12:14 PM [facility] Urine Leukocyte Esterase Trace(A) Negative 07/28/2024 12:14 PM [facility] Urine Nitrates Negative Negative 07/28/2024 12:14 PM [facility] Urine Protein Trace(A) Negative 07/28/2024 12:14 PM [facility] Urine Glucose Negative Negative 07/28/2024 12:14 PM [facility] Urine Ketones Negative Negative 07/28/2024 12:14 PM [facility] Urine Urobilinogen 1.0(A) Normal 07/28/2024 12:14 PM [facility] Urine Bilirubin Negative Negative 12:14 PM [facility] Urine Blood Negative Negative 07/28/2024 12:14 PM [facility] Urine WBC's 0-5 0 - 5 /HPF 07/28/2024 12:14 PM [facility] Urine RBC's 0-2 0 - 2 /HPF 07/28/2024 12:14 PM [facility] Urine Epithelial Cells Occasional( A) Negative /HPF 07/28/2024 12:14 PM [facility] Urine Bacteria Negative Negative /HPF 07/28/2024 12:14 PM [facility] Urine URINE SPECIMEN COLLECTION, CLEAN CATCH / Unknown Non-blood collection / Unknown 07/28/2024 11:44 AM CDT 07/28/2024 11:49 AM CDT us Asher Holt MD EC URINE ORDERABLES Final Re sult Performing Organization Address City/[facility]/ZIP Co de Phone Number [facility] [address] [place], [place] [phone] [place] [address] * PLACENTAL ALPHA MICROGLOBULIN-1, ROM (07/28/2024 10:52 AM CDT) PAMG Negative Negative 07/28/2024 11:18 AM CDT [facility] Swab VAGINAL SWAB / Unknown Non-blood collection / Unknown 07/28/2024 10:52 AM CDT 07/28/2024 10:57 AM CDT Asher Holt MD EC CHEMISTRY ORDERABLES Cristiana l Result Performing Organization Address [facility] Co de Phone Number [facility] [address] [place], [place] [phone] [place] [address] documented in this encounter Visit Diagnoses Not on filedocumented in this encounter Historical Medications * This list may reflect changes made after this encounter. labetalol (Trandate) 100 MG tablet Take 100 mg by mouth two times a day. added in this encounter Orders Admission Count Last Ordered Date First Orde red Date ASSIGN TO OUTPATIENT 1 07/28/2024 Discharge Count Last Ordered Date First Orde red Date DISCHARGE PATIENT 1 07/28/2024 documented in this encounter Care Teams Commutator Presser Relationship Specialty Start Date End Date Elsewhere, Pcp PCP - General 07/02/24 documented as of this encounter
--- OUTSIDE RECORDS SUMMARY | 2024-08-29 10:51 | XMS_ITS | Encounter Summary ---
Author Organization [facility] Address [address] [address] Phone Care Team Providers Care Survey Supervisor Name Role Phone Elsewhere, Pcp Primary Care Provider Unavailabl e Encounter Details Date Type Department Care Team (Latest Contact Info) Description 07/02/2024 Travel Social History Tobacco Use Types Packs/Day Years Used Date Smoking Tobacco: Never Passive Smoke Exposure: Never Smokeless Tobacco: Never Alcohol Use Standard Drinks/Week Comments Not Currently 0 (1 standard drink = 0.6 oz pur e alcohol) Comments Unknown Sex and Gender Information Value Date Recorded Sex Assigned at Female 07/28/2024 11:04 AM CDT Legal Sex Female 9:13 AM CDT Gender Identity Female 07/28/2024 11:04 AM CDT Sexual Orientation Straight 07/28/2024 11 :04 AM CDT documented as of this encounter Plan of Treatment Not on file documented as of this encounter Visit Diagnoses Not on filedocumented in this encounter Care Teams Survey Supervisor Relationship Specialty Start Date End Date Elsewhere, Pcp PCP - General 07/02/24 documented as of this encounter
--- OUTSIDE RECORDS SUMMARY | 2024-08-29 10:51 | XMS_ITS | Clinical Summary ---
[facility] Organization [facility] Address [address] [place] [address] Care Team Providers Care Certified Nurse Aide Name Role Phone Heydi Santana PA-C Primary Care Provider [phone] Source Comments You are receiving this document as you are listed as the primary care provider,follow-up provider, or the patient has been referred to you for consultation.This is in compliance with the Medicare and[facility] EHR Incentive Program,which states Providers who transition their patient to another setting of careor provider of care or refers their patient to another provider of care shouldprovide summary care record for each transition of care or referral. [facility] Allergies No known active allergies Medications Medication Sig Dispensed Refills Start Date End Date Status ALBUterol sulfate hfa (PROAIR HFA) 108 (90 BASE) MCG/ACT inhalerIndications:R eactive airway disease (HRC) Inhale 2-4 Puffs by mouth every 4 hours as needed for Wheezing. 8.5 g 1 05/25/2011 Active Additional Information Patient not taking.Reported on 06/20/2022 triamcinolone acetonide (AKA KENALOG) 0.025 % cream Apply 1 Application topically 3 times daily. LW Comment:appt needed for refill 80 01/24/2010 Active Additional Information Patient not taking.Reported on 06/20/2022 ALBUterol sulfate HFA 108 (90 BASE) MCG/ACT inhaler Inhale 2 puffs every 4 hours as needed for Shortness of Breath. 8 g 2 10/25/2011 Active Additional Information Patient not taking.Reported on 06/20/2022 Blood Glucose Monitoring Suppl (CONTOUR NEXT EZ) w/Device KIT 05/26/2022 Active famotidine (PEPCID) 40 MG tablet Take 40 mg by mouth two times a day. 04/14/2022 Active CONTOUR NEXT TEST test strip 1 Each 4 times a day. 05/26/2022 Active Microlet Lancets lancets Inhale 4 times a day. 05/26/2022 Active metFORMIN XR (GLUCOPHAGE XR) 500 MG 24 hour release tablet SMARTSI Tablet(s) By Mouth Every Evening 06/06/2022 Active plus vitamin Take 1 Tablet by mouth daily. 05/01/2022 Active aspirin EC 81 MG enteric coated tablet Take 81 mg by mouth daily. Active Immunizations Name Administration Dates Next Due HepB Ped/Adol (0-18 yrs) 02/22/2001,12/07/2000,1 12/04/1999 Influenza, Unspecified Formulation 09/08/2003 Td 10/03/2000 Social History Tobacco Use Types Packs/Day Years Used Date Smoking Tobacco: Never Tobacco Cessation:Counseling Given: Not Answered Alcohol Use Standard Drinks/Week Comments Not Currently 0 (1 standard drink = 0.6 oz pur e alcohol) Sex and Gender Information Value Date Recorded Sex Assigned at Not on file Gender Identity Not on file Sexual Orientation Not on file Last Filed Vital Signs Vital Sign Reading Time Taken Comments Blood Pressure 120/68 03/12/2012 12:58 PM CDT Pulse 80 03/12/2012 12:58 PM CDT Temperature 37.2 ??C (99 ??F) 10/25/2011 1:1 0 PM [employer] Respiratory Rate 16 10/25/2011 1:10 PM [employer] Oxygen Saturation 99% 10/25/2011 1:1 0 PM [employer] Inhaled Oxygen Concentration - - Weight 68.5 kg (151 lb) 06/22/2022 5:04 PM CDT patient reported Height - - Body Mass Index - - Plan of Treatment Health Maintenance Due Date Last Done Comments Cervical Cancer Screening Due 1989 Hep C Screening (Preventive Services) 1989 HIV Screening (Preventive Services) 2005 Adult Preventive Visit 2007 COVID-19 Vaccine ( season) 2024 06/18/2021, 05/18/2021 Influenza (#1) 2024 12/16/2020, 06/22, 09/08/2003 DTaP/Tdap/Td (8 - Tdap) 06/02/2032 06/02/20, 09/03/2012, 10/03/2000, Additional history exists Zoster/Shingles (1 of 2) 2039 IPV (Polio) Completed 02/03/1992, 02/20, 1989, Additional history exists HepB Completed 02/22/2001, 11/22, 10/03/2000 HPV Vaccine Aged Out No longer eligi ble based on patient's age to complete this topic HepA Aged Out No longer eligi ble based on patient's age to complete this topic Hib Aged Out No longer eligi ble based on patient's age to complete this topic RSV Aged Out No longer eligi ble based on patient's age to complete this topic MCV4 Aged Out No longer eligi ble based on patient's age to complete this topic Pneumococcal Aged Out No longer eligi ble based on patient's age to complete this topic Care Teams Certified Nurse Aide Relationship Specialty Start Date End Date Heydi Santana PA-C [address] [place], [place] [id number] PCP - General 11/14/10
--- OUTSIDE RECORDS SUMMARY | 2024-08-29 10:51 | XMS_ITS | Encounter Summary ---
Author Organization [facility] Address [address] [address] Phone Care Team Providers Care Sheet Folder Name Role Phone Elsewhere, Pcp Primary Care Provider Unavailabl e Reason for Visit * Reason Comments Hypertension - Symptomatic Encounter Details Date Type Department Care Team ([facility] st Contact Info) Description 08/26/2024 8:11 PM HAND COPER - 08/26/2024 11:59 PM [facility] Emergency [facility] [address] [place] [phone] Cathi Childress MD [address] [place] [address] hypertension (Primary Dx); Acute intractable headache, unspecified headache type; Lower extremity edema Discharge Disposition: Home and/or Self Care Social History Tobacco Use Types Packs/Day Years Used Date Smoking Tobacco: Never Passive Smoke Exposure: Never Smokeless Tobacco: Never Alcohol Use Standard Drinks/Week Comments Not Currently 0 (1 standard drink = 0.6 oz pur e alcohol) IP Custom IPV Answer Date Recorded Do you feel UNSAFE in any of your personal relationships with your family members or any other acquaintances? No 2023 Estimated Date of Delivery Comme nts Yes [...] Sign Reading Time Taken Comments Blood Pressure 147/88 08/26/2024 11:04 PM HAND COPER Pulse 72 08/26/2024 11:05 PM HAND COPER Temperature 36.6 ??C (97.9 ??F) 08/26/2024 8:10 PM CS T Respiratory Rate 16 08/26/2024 11:05 PM HAND COPER Oxygen Saturation 96% 08/26/2024 11:05 PM HAND COPER Inhaled Oxygen Concentration - - Weight 74.4 kg (164 lb) 08/26/2024 8:10 PM HAND COPER Height 152.4 cm (5') 08/26/2024 8:10 PM HAND COPER Body Mass Index 32.03 08/26/2024 8:10 PM HAND COPER documented in this encounter Functional Status * Patient's Vision Adequate to Safely Complete Daily Activities Answer Date of Assessment Author Yes 08/26/2024 9:06 PM HAND COPER Meera Ramírez RN * Patient's Memory Adequate to Safely Complete Daily Activities Answer Date of Assessment Author Yes 08/26/2024 9:06 PM HAND COPER Meera Ramírez RN documented as of this encounter Mental Status * Patient's Judgment Adequate to Safely Complete Daily Activities Answer Entry Date Author Yes 08/26/2024 9:06 PM HAND COPER Meera Ramírez, KATHI documented in this encounter Discharge Instructions * Discharge Instructions* Cathi Childress MD - 08/26/2024 11:53 PM HAND COPER Take your next dose of labetalol early in the morning. Take labetalol 300 mg 3 times daily unless further instructed at your follow-up OB appointment in the morning. Return to the emergency department immediately with any increasing symptoms or concerns. COPER documented in this encounter Medications at Time [...] Discharge Disposition Disposition Code Departure Means Destination Comment s Home and/or Self Correction documented in this encounter ED Notes * Cathi Childress MD - 08/26/2024 8:13 PM CST ED PROVIDER NOTE Name: Rola Mckeon Date of : 1990 SUBJECTIVE: Chief Complaint: Chief Complaint Patient presents with Hypertension - Symptomatic History of Present Illness: Rola Mckeon is a 34 year old female with a past medical history of c- section on 08/20 for pre-ecclampsia complicated by uterine rupture, also with enlarged aorta now repaired presents to the emergency department via private vehicle for evaluation of elevated blood pressure. The patient states that she was started on labetalol on 07/31 for elevated blood pressure. Blood pressures were not improving, and she was therefore induced on Pitocin on 08/20 due to concerns for preeclampsia. Had a the same day. Uterus ruptured during . Uterus was repaired. CT scan afterward didnot demonstrate internal bleeding. She did lose a lot of blood which resulted in a syncopal episode. She did not require blood transfusion, but was started on iron. She was kept in the hospital until2 days ago due to hypertension. She has been taking labetalol 300 mg twice daily. She took 300 mg at 7 AM and then took an additional 100 mg around the same time due to continued elevated blood pressure. She took her second dose of labetalol 300 mg approximately half hour ago, just prior to coming to the emergency department. She was instructed to come to the emergency department if her blood pressure was persistently over 150 systolic, which it has been all day. She has had an increase in swelling in her bilateral lower legs since last night. She has a right sided headache, which is not getting better with ibuprofen and Tylenol. No vision changes. No new abdominal pain. Headache gradual onset with sudden worsening yesterday. Pt states she gets headaches all the time. PAST MEDICAL HISTORY: There is no problem list on file for this patient. No past medical history on file. No past surgical history on file. No family history on file. Social History Social History Narrative Not on file Social History Socioeconomic History Marital status: Tobacco Use Smoking status: Never Passive exposure: Never Smokeless tobacco: Never Vaping Use Vaping status: Never Used Substance and Sexual Activity Alcohol use: Not Currently Drug use: Not Currently Sexual activity: Yes Social Drivers of Health Financial Resource Strain: Low Risk (08/20/2024) Received from [employer] Financial Resource Strain Within the past 12 months, have you or your family members you live with been unable to get utilities (heat, electricity) when it was really needed?: No Food Insecurity: Low Risk (08/20/2024) Received from [employer] Food Insecurity Within the past 12 months, did you worry that your food would run out before you got money to buy more?: No Within the past 12 months, did the food you bought just not last and you didn???t have money to getmore?: No Transportation Needs: Low Risk (08/20/2024) Received from [employer] Transportation Needs Within the past 12 months, has lack of transportation kept you from medical appointments, getting your medicines, non-medical meetings or appointments, work, or from getting things that you need?: No Physical Activity: Sufficiently Active (11/19/2021) Received from [facility] Exercise Vital Sign Days of Exercise per Week: 5 days Minutes of Exercise per Session: 60 min Stress: Stress Concern Present (11/19/2021) Received from [facility] [employer] - Occupational Stress Questionnaire Feeling of Stress : To some extent Received from [facility] [email or web address] [facility] Social Connections Intimate Partner Violence: Not At Risk (08/26/2024) IP Custom IPV Intimate Partner Violence: No Housing Stability: Low Risk (08/20/2024) Received from [facility] Stability Do you have housing? (Housing is defined as stable permanent housing and does not include staying ouside in a car, in a tent, in an abandoned building, in an overnight halfway, or couch-surfing.): Yes Are you worried about losing your housing?: No Prior to Admission Medications Prescriptions Last Dose Informant Patient Reported? Taking? Accu-Chek Guide Yes No Sig: USE 1 STRIP FOUR TIMES A DAY BD Pen Needle Mi 2nd Gen 32G X 4 MM Misc Yes No Sig: USE 4 PEN NEEDLES A DAY OR DIRECTED Blood Glucose Monitoring Suppl (Accu-Chek Guide) w/Device Kit Yes No Sig: USE TO TEST BLOOD SUGAR 4 TIMES DAILY OR DIRECTED Levemir FlexPen 100 UNIT/ML pen injection Yes No Si Units at bedtime. NovoLOG FlexPen 100 UNIT/ML pen injection Yes No Sig: TAKE 6 UNITS WITH BREAKFAST, MAY TITRATE UP TO 50 UNITS DAILY 28-0.8 MG Tablet Yes No aspirin EC 81 MG tablet Yes No Sig: Take 81 mg by mouth one time a day. ketone - urine test (Ketostix) strip Yes No Sig: USE 1 STRIP ONCE DAILY FOR 1 WEEK, THEN WEEKLY IF NEGATIVE. labetalol (Trandate) 100 MG tablet Yes No Sig: Take 100 mg by mouth two times a day. lancets, Accu-Chek Softclix, (Accu-Chek Softclix) Yes No Sig: TEST FOUR TIMES A DAY loratadine (Claritin) 10 MG tablet No No Sig: Take 1 Tablet by mouth one time a day. Take on an empty stomach. metFORMIN (Glucophage) 500 MG tablet Yes No Sig: Take 500 mg by mouth two times a day. omeprazole (PriLOSEC) 10 MG delayed-release capsule Yes No Facility-Administered Medications: None Allergies/Sensitivities: Allergies Allergen Reactions Grass [employer]en(K-O-R-[employer]-Swt Eyal) Wheezing and Pruritis [place] [facility] Primary Care Provider: Pcp Elsewhere Code Status: No Order OBJECTIVE: Physical Exam: Blood pressure (!) 147/88, pulse 72, temperature 97.9 ??F (36.6 ??C), temperature source Temporal, resp. rate 16, height 1.524 m (5'), weight 74.4 kg (164 lb), SpO2 96%. GENERAL: Well-nourished, alert, cooperative, no acute distress. HEAD: Atraumatic. EYES: Pupils equal and round. NOSE: No nasal discharge. MOUTH: Moist mucous membranes NECK: Supple LUNGS: No respiratory distress. Good air entry. Clear to auscultation bilaterally. HEART: Regular rate and rhythm, no murmurs. ABDOMEN: Soft, non-distended, non-tender. NEURO: Awake and alert. Grossly intact. EXTREMITIES: No deformities appreciated. Mild-moderate edema bilat. SKIN: Warm and dry. Good color. No rashes or lesions. PSYCH: Appropriate mood and matching affect. ED COURSE, MEDICAL DECISION MAKING: Data: All laboratory data, imaging, and EKGs were interpreted independently. Diagnostics (reviewed and interpreted independently): Recent Results (from the past 12 hours) HEMOGRAM/DIFFERENTIAL Result Value Ref Range WBC 7.6 4.0 - 11.0 10*3/uL RBC 3.28 (L) 3.80 - 5.20 10*6/uL HGB 8.6 (L) 12.0 - 16.0 g/dl HCT 27.3 (L) 35.0 - 47.0 % MCV 83.2 80 - 98 fL MCH 26.2 (L) 27.0 - 34.0 pg MCHC 31.5 (L) 32 - 36 g/dl PLT 301 150 - 420 10*3/uL Neutrophils Absolute 4.54 2.10 - 7.50 10*3/uL Lymphocytes Absolute 1.96 0.76 - 4.00 10*3/uL Monocytes Absolute 0.48 0.00 - 0.90 10*3/uL Eosinophils Absolute 0.25 0.04 - 0.54 10*3/uL Basophils Absolute 0.06 0.00 - 0.20 10*3/uL RDW-SD 39.7 36.5 - 46.3 fL RDW-CV 13.5 11.6 - 14.4 % Immature Granulocytes Absolute 0.35 (H) 0.00 - 0.10 10*3/uL Nucleated RBCs Absolute 0.03 (H) 0.00 - 0.00 10*3/uL BASIC METABOLIC PANEL Result Value Ref Range Sodium 136 135 - 144 mmol/L Potassium 3.9 3.4 - 5.1 mmol/L Chloride 105 98 - 107 mmol/L Carbon Dioxide 26 22 - 30 mmol/L Calcium 9.1 8.6 - 10.3 mg/dL Glucose 89 74 - 100 mg/dL Blood Urea nitrogen 15 7 - 17 mg/dL Creatinine 0.67 0.52 - 1.04 mg/dL Anion Gap 5 5 - 15 mmol/L Glomerular Filtration Rate >60 >60 mL/min/1.73 m*2 HEPATIC FUNCTION PANEL Result Value Ref Range Alkaline Phosphatase 114 38 - 126 U/L Aspartate Aminotransferase 44 (H) 14 - 36 U/L Alanine Aminotransferase 46 (H) <35 U/L Protein, Total 6.3 6.3 - 8.2 g/dL Albumin 3.4 (L) 3.5 - 5.0 g/dL Bilirubin, Total 0.4 0.2 - 1.3 mg/dL Bilirubin, Direct 0.00 <=0.30 mg/dL Bilirubin, Indirect 0.31 <=1.10 mg/dL URIC ACID Result Value Ref Range Uric Acid 4.3 2.5 - 8.5 mg/dL RAINBOW DRAW Narrative The following orders were created for panel order RAINBOW DRAW. Procedure Abnormality Status --------- ------ HOLD NA CITRATE[[id number]] Final result HOLD RED TOP SERUM[[id number]] Final result HOLD DARK GREEN WHOLE BL...[[id number]] Final result HOLD SLAUGHTER TUBE[[id number]] Final result Please view results for these tests on the individual orders. LACTATE DEHYDROGENASE Result Value Ref Range Lactate Dehydrogenase 299 (H) 120 - 246 U/L URINALYSIS, REFLEX TO CULTURE Specimen: Urine CVMS Result Value Ref Range UA Color Light Yellow Light Yellow, Yellow Urine Appearance Clear Clear Urine Specific [place] 1.010 1.005 - 1.030 Urine pH 6.5 5.0 - 8.0 Urine Leukocyte Esterase Trace (A) Negative Urine Nitrates Negative Negative Urine Protein Trace (A) Negative Urine Glucose Negative Negative Urine Ketones Negative Negative Urine Urobilinogen Normal Normal Urine Bilirubin Negative Negative Urine Blood 4+ (A) Negative Urine WBC's 0-5 0 - 5 /HPF Urine RBC's 2-8 (A) 0 - 2 /HPF Urine Epithelial Cells Occasional (A) Negative /HPF Urine Bacteria Occasional (A) Negative /HPF CREATININE, RANDOM URINE Result Value Ref Range Urine Creatinine, Random 60.5 No Established Reference Range mg/dL PROTEIN/CREATININE RATIO, RANDOM URINE Result Value Ref Range Urine Total Protein 16 (H) <12 mg/dL Urine Creatinine, Random 62.6 No Established Reference Range mg/dL Urine Total Protein/Creatinine Ratio 0.26 (H) <=0.20 Imaging (reviewed and interpreted independently): Imaging Results None Procedure: Procedures ED Course as of 08/26/24 2358 Tue Aug 26, 20247 ALT(SGPT)(!): 46 [KA] ED Course User Index [KA] Cathi Childress MD 34 year old female with 6d s/p with uterine rupture. Blood pressure on presentation was 192/104. Held off on medication initially as the patient had just taken an extra 300 mg labetalol prior to arrival here. On recheck, 15 minutes later, blood pressure had improved to 169/94. Will continue to monitor this closely and give additional antihypertensives if needed. Labs reviewed as above. LFTs mildly elevated with AST 44 and ALT 46. On review of care everywhere, the patient had normal LFTs on 08/20. LFTs not checked since then. Blood pressure on recheck is 156/93. Heart rate 49. Patient was treated with hydralazine 10 mg IV. Discussed with Dr. Garsia of [facility]. Plan to follow up Urine P/C ratio. Anticipate discharge to home with instructions to take labetalol 3 times daily. On further discussion with the patient, she was induced at [address] Ho at [facility] due to ongoing hypertension. She never had magnesium. LFTs were normal on admission. The patient's headache is unchanged. She states she had headaches very frequently throughout the , and this does not seem that abnormal for her. She declined head CT/further workup in the emergency department. Urine protein/creatinine ratio is 0.26. Dr. Garsia updated. Continue with same plan. The patient has a follow-up appointment with her CAREER SERVICES ASSISTANT scheduled tomorrow morning at 10 am. Plan to discharge to home with instructions to take labetalol 300 mg 3 times daily and follow-up with her CAREER SERVICES ASSISTANT as scheduled tomorrow morning at 10 AM. She was instructed to return to the Emergency Department immediately with any increasing symptoms or concerns. The patient expressed understanding and agreement with the above plan. Questions were answered to the best of my ability. Final Clinical Impression: (O16.5) hypertension (primary encounter diagnosis) (R51.9) Acute intractable headache, unspecified headache type (R60.0) Lower extremity edema Cathi Childress MD 08/26/24 11:58 PM Cathi Childress MD 08/26/24 [id number] COPER * Zaria Groves RN - 08/26/2024 8:07 PM CST Pt reports she was induced and on pitocin on 08/20 and pt reports she had a c- section on that day. Pt reports her uterus ruptured during c section. Pt reports she lost a lot of blood and was kept in the hospital until Sunday d/t HTN. Pt has been taking labetalol 300mg daily. Pt was told to take 100mg extra today. Reports she was told to come to ED if her BP maintained over 150 systolic. Pt reports it has been over 150 all day. Pt also reports increased swelling in bilateral lower legs. COPER documented in this encounter Plan of Treatment Not on file documented as of this encounter Procedures Procedure Name Priority Date/Time Associated Diagnosis Comments PROTEIN/CREATININE RATIO, RANDOM URINE STAT 08/26/2024 9:05 PM HAND COPER CULTURE, URINE STAT 08/26/2024 9:05 PM HAND COPER URINALYSIS, REFLEX TO CULTURE STAT 08/26/2024 9:05 PM HAND COPER CREATININE, RANDOM URINE STAT 08/26/2024 9:05 PM HAND COPER HOLD SLAUGHTER TUBE STAT 08/26/2024 8:27 PM HAND COPER HOLD RED TOP SERUM STAT 08/26/2024 8: 27 PM HAND COPER HOLD DARK GREEN WHOLE BLOOD TUBE STAT 08/26/2024 8:27 PM HAND COPER RAINBOW DRAW STAT 08/26/2024 8:27 PM HAND COPER HOLD NA CITRATE STAT 08/26/2024 8:27 PM HAND COPER LDH STAT 08/26/2024 8:27 PM HAND COPER BASIC METABOLIC PANEL STAT 08/26/2024 8:25 PM HAND COPER HEPATIC FUNCTION PANEL STAT 08/26/2024 8:25 PM HAND COPER HEMOGRAM/DIFF STAT 08/26/2024 8:25 PM HAND COPER URIC ACID STAT 08/26/2024 8:25 PM HAND COPER documented in this encounter Results * (ABNORMAL) PROTEIN/CREATININE RATIO, RANDOM URINE (08/26/2024 9:05 PM HAND COPER) Urine Total Protein 16(H) <12 mg/dL 08/26/2024 11:20 PM HAND COPER [facility] Urine Creatinine, Random 62.6 No Established Reference Range mg/dL 08/26/2024 11:20 PM HAND COPER [facility] Urine Total Protein/Creat inine Ratio 0.26(H) <=0.20 08/26/2024 11:20 PM HAND COPER [facility] Urine VOIDED URINE SPECIMEN / Unknown Non-blood collection / Unknown 08/26/2024 9:05 PM HAND COPER 08/26/2024 11:08 PM HAND COPER us Cathi Childress MD EC URINE ORDERABLES Final Re sult [facility] [address] [phone] * CULTURE, URINE (08/26/2024 9:05 PM HAND COPER) Urine URINE SPECIMEN COLLECTION, CLEAN CATCH / Unknown Non-blood collection / Unknown 08/26/2024 9:05 PM HAND COPER 08/26/2024 9:24 PM HAND COPER Narrative [facility] - 08/28/2024 9:50 AM HAND COPER 50-100,000 cfu/mL mixed gram positive usual urogenital seth Three or more organisms present indicating contamination us Cathi Childress MD EC MICROBIOLOGY - GENERAL OR DERABLES Final Result Performing Organization Address [facility]/ZIP Co de Phone Number [facility] [address] [phone] * CREATININE, RANDOM URINE (08/26/2024 9:05 PM HAND COPER) Urine Creatinine, Random 60.5 No Established Reference Range mg/dL 08/26/2024 9:38 PM HAND COPER [facility] Urine URINE SPECIMEN COLLECTION, CLEAN CATCH / Unknown Non-blood collection / Unknown 08/26/2024 9:05 PM HAND COPER 08/26/2024 9:11 PM HAND COPER us Cathi Childress MD EC URINE ORDERABLES Final Re sult Performing Organization Address [facility] Co de Phone Number [facility] [address] [place] [address] * (ABNORMAL) URINALYSIS, REFLEX TO CULTURE (08/26/2024 9:05 PM HAND COPER) UA Color Light Yellow Light Yellow, Yellow 08/26/2024 9:24 PM HAND COPER [facility] Urine Appearance Clear Clear 08/26/20 9:24 PM HAND COPER [facility] Urine Specific [place] 1.010 1.005 - 1.030 08/26/2024 9:24 PM [facility] Urine pH 6.5 5.0 - 8.0 08/26/2024 9:24 PM [facility] Urine Leukocyte Esterase Trace(A) Negative 08/26/2024 9:24 PM [facility] Urine Nitrates Negative Negative 08/26/2024 9:24 PM HAND COPER [facility] Urine Protein Trace(A) Negative 08/26/2024 9:24 PM HAND COPER [facility] Urine Glucose Negative Negative 08/26/2024 9:24 PM HAND COPER [facility] Urine Ketones Negative Negative 08/26/2024 9:24 PM HAND COPER [facility] Urine Urobilinogen Normal Normal 08/26/2024 9:24 PM [facility] Urine Bilirubin Negative Negative 9:24 PM HAND COPER [facility] Urine Blood 4+(A) Negative 08/26/2024 9:24 PM HAND COPER [facility] Urine WBC's 0-5 0 - 5 /HPF 08/26/2024 9:24 PM [facility] Urine RBC's 2-8(A) 0 - 2 /HPF 08/26/2024 9:24 PM [facility] Urine Epithelial Cells Occasional( A) Negative /HPF 08/26/2024 9:24 PM [facility] Urine Bacteria Occasional( A) Negative /HPF 08/26/2024 9:24 PM HAND COPER [facility] Urine URINE SPECIMEN COLLECTION, CLEAN CATCH / Unknown Non-blood collection / Unknown 08/26/2024 9:05 PM HAND COPER 08/26/2024 9:11 PM HAND COPER Cathi Childress MD EC URINE ORDERABLES Final Re sult Performing Organization Address City/State/[facility] Co de Phone Number [facility] [address] [place] [address] * (ABNORMAL) LACTATE DEHYDROGENASE (08/26/2024 8:27 PM HAND COPER) Lactate Dehydrogenase 299(H) 120 - 246 U/L 08/26/2024 9:28 PM HAND COPER [facility] Blood BLOOD SPECIMEN / Unknown Venipuncture / Unknown 08/26/2024 8:27 PM HAND COPER 08/26/2024 8:30 PM HAND COPER us Cathi Childress MD EC CHEMISTRY ORDERABLES Cristiana l Result Performing Organization Address City/[facility] Co de Phone Number [facility] [address] [phone] * HOLD SLAUGHTER TUBE (08/26/2024 8:27 PM HAND COPER) Blood BLOOD SPECIMEN / Unknown Venipuncture / Unknown 08/26/2024 8:27 PM HAND COPER 08/26/2024 8:30 PM HAND COPER Cathi Childress MD EC CHEMISTRY ORDERABLES Cristiana l Result Performing Organization Address City/[facility] Co de Phone Number [facility] [address] [place] [address] * HOLD DARK GREEN WHOLE BLOOD TUBE (08/26/2024 8:27 PM HAND COPER) Blood BLOOD SPECIMEN / Unknown Venipuncture / Unknown 08/26/2024 8:27 PM HAND COPER 08/26/2024 8:30 PM HAND COPER Cathi Childress MD EC LAB SEND OUT ORDERABLES F inal Result Performing Organization Address City/[facility] Co de Phone Number [facility] [address] [place] [address] * HOLD RED TOP SERUM (08/26/2024 8:27 PM HAND COPER) Blood BLOOD SPECIMEN / Unknown Venipuncture / Unknown 08/26/2024 8:27 PM HAND COPER 08/26/2024 8:30 PM HAND COPER Cathi Childress MD EC LAB SEND OUT ORDERABLES F inal Result Performing Organization Address City/[facility] Co co Phone Number [facility] [address] [place] [address] * HOLD NA CITRATE (08/26/2024 8:27 PM HAND COPER) Blood BLOOD SPECIMEN / Unknown Venipuncture / Unknown 08/26/2024 8:27 PM HAND COPER 08/26/2024 8:30 PM HAND COPER Cathi Childress MD EC HEMATOLOGY ORDERABLES Fin al Result Performing Organization Address [facility] Co de Phone Number [facility] [address] [phone] * URIC ACID (08/26/2024 8:25 PM HAND COPER) Uric Acid 4.3 2.5 - 8.5 mg/dL 08/26/2024 9:00 PM [facility] Blood BLOOD SPECIMEN / Unknown Venipuncture / Unknown 08/26/2024 8:25 PM HAND COPER 08/26/2024 8:30 PM HAND COPER Cathi Childress MD EC CHEMISTRY ORDERABLES Cristiana l Result Performing Organization Address [facility] Phone Number [facility] [address] [phone] * (ABNORMAL) HEPATIC FUNCTION PANEL (08/26/2024 8:25 PM HAND COPER) Alkaline Phosphatase 114 38 - 126 U/L 08/26/2024 9:00 PM [facility] Aspartate Aminotransferase 44(H) 14 - 36 U/L 08/26/2024 9:00 PM [facility] Alanine Aminotransferase 46(H) <35 U/L 08/26/2024 9:00 PM [facility] Protein, Total 6.3 6.3 - 8.2 g/dL 08/26/2024 9:00 PM [facility] Albumin 3.4(L) 3.5 - 5.0 g/dL 08/26/2024 9:00 PM [facility] Bilirubin, Total 0.4 0.2 - 1.3 mg/dL 08/26/2024 9:00 PM [facility] Bilirubin, Direct 0.00 <=0.30 mg/dL 08/26/2024 9:00 PM [facility] Bilirubin, Indirect 0.31 <=1.10 mg/dL 08/26/2024 9:00 PM [facility] Blood BLOOD SPECIMEN / Unknown Venipuncture / Unknown 08/26/2024 8:25 PM HAND COPER 08/26/2024 8:30 PM HAND COPER us Cathi Childress MD EC CHEMISTRY ORDERABLES Cristiana echols Result [facility] [address] [phone] * BASIC METABOLIC PANEL (08/26/2024 8:25 PM [facility]) Sodium 136 135 - 144 mmol/L 08/26/2024 9:00 PM [facility] Potassium 3.9 3.4 - 5.1 mmol/L 08/26/2024 9:00 PM [facility] Chloride 105 98 - 107 mmol/L 08/26/2024 9:00 PM [facility] Carbon Dioxide 26 22 - 30 mmol/L 08/26/2024 9:00 PM [facility] Calcium 9.1 8.6 - 10.3 mg/dL 08/26/2024 9:00 PM [facility] Glucose 89 74 - 100 mg/dL 08/26/2024 9:00 PM [facility] Blood Urea nitrogen 15 7 - 17 mg/dL 08/26/2024 9:00 PM [facility] Creatinine 0.67 0.52 - 1.04 mg/dL 08/26/2024 9:00 PM [facility] Anion Gap 5 5 - 15 mmol/L 08/26/2024 9:00 PM [facility] Glomerular Filtration Rate >60 >60 mL/min/1.7 3 m*2 08/26/2024 9:00 PM [facility] Comment:This calculation use s CKD-EPI 2020 equation; it has not been validated in women. Blood BLOOD SPECIMEN / Unknown Venipuncture / Unknown 08/26/2024 8:25 PM HAND COPER 08/26/2024 8:30 PM HAND COPER Cathi Childress MD EC CHEMISTRY ORDERABLES Cristiana kinza Result [facility] [address] [phone] * (ABNORMAL) HEMOGRAM/DIFFERENTIAL (08/26/2024 8:25 PM HAND COPER) WBC 7.6 4.0 - 11.0 10*3/uL 08/26/2024 8:33 PM [facility] RBC 3.28(L) 3.80 - 5.20 10*6/uL 08/26/2024 8:33 PM [facility] HGB 8.6(L) 12.0 - 16.0 g/dl 08/26/2024 8:33 PM [facility] HCT 27.3(L) 35.0 - 47.0 % 08/26/2024 8:33 PM [facility] MCV 83.2 80 - 98 fL 08/26/2024 8:33 PM [facility] MCH 26.2(L) 27.0 - 34.0 pg 08/26/2024 8:33 PM [facility] MCHC 31.5(L) 32 - 36 g/dl 08/26/2024 8:33 PM [facility] PLT 301 150 - 420 10*3/uL 08/26/2024 8:33 PM [facility] Neutrophils Absolute 4.54 2.10 - 7.50 10*3/uL 08/26/2024 8:33 PM [facility] Lymphocytes Absolute 1.96 0.76 - 4.00 10*3/uL 08/26/2024 8:33 PM [facility] Monocytes Absolute 0.48 0.00 - 0.90 10*3/uL 08/26/2024 8:33 PM [facility] Eosinophils Absolute 0.25 0.04 - 0.54 10*3/uL 08/26/2024 8:33 PM HAND COPER [facility] Basophils Absolute 0.06 0.00 - 0.20 10*3/uL 08/26/2024 8:33 PM HAND COPER [facility] RDW-SD 39.7 36.5 - 46.3 fL 08/26/2024 8:33 PM [facility] RDW-CV 13.5 11.6 - 14.4 % 08/26/2024 8:33 PM [facility] Immature Granulocytes Absolute 0.35(H) 0.00 - 0.10 10*3/uL 08/26/2024 8:33 PM [facility] Nucleated RBCs Absolute 0.03(H) 0.00 - 0.00 10*3/uL 08/26/2024 8:33 PM [facility] Blood BLOOD SPECIMEN / Unknown Venipuncture / Unknown 08/26/2024 8:25 PM HAND COPER 08/26/2024 8:30 PM HAND COPER us Cathi Childress MD EC HEMATOLOGY ORDERABLES Fin al Result Performing Organization Address City/State/[facility] Co de Phone Number [facility] [address] [phone] documented in this encounter Visit Diagnoses Diagnosis hypertension- Primary Unspecified hypertension, condition or complication Acute intractable headache, unspecified headache type Lower extremity edema Edema documented in this encounter Administered Medications Inactive Administered Medications Medication Order MAR Action Action Date Dose Rate Site hydrALAZINE (Apresoline) injection 10 mg 10 mg, IV Push, ONCE, 1 dose, On Sun08/26/24 at 2200 Given 08/26/2024 10:18 PM HAND COPER 10 mg documented in this encounter Active and Recently Administered Medications Due to Daylight Saving Time, this section may contain times in both CDT and HAND COPER. Scheduled Medication Order 08/24/2024 08/25/2024 08/26/2024 hydrALAZINE (Apresoline) injection 10 mg (COMPLETED) 10 mg, IV Push, ONCE, 1 dose, On Sun08/26/24 at 2200 2218 (Given - Provid er: Bryce Rivera RN) documented in this encounter Orders Medications Ordered That Marcin ht Not Have Been Administered Count Last Ordered Date First Ordered Date labetalol (Trandate) injection 20 mg 1 02/2024 documented in this encounter Care Teams Sheet Folder Relationship Specialty Start Date End Date Elsewhere, Pcp PCP - General 07/02/24 documented as of this encounter
--- OUTSIDE RECORDS SUMMARY | 2024-08-29 10:51 | XMS_ITS | Clinical Summary ---
Author Organization [facility] Address [place], [place] [address] Care Team Providers Care Ruby Developer Name Role Phone Pcp, No Primary Care Provider Unavailabl e Allergies Active Allergy Reactions Criticality Noted Date Comments [place] Pollen Itching,Wheezing 04/17/2022 Medications Medication Sig Dispensed Refills Start Date End Date Status famotidine (PEPCID) 20 mg tabletIndications:Hea rtburn during in first trimester Take 1 Tablet (20 mg) by mouth two times daily. 60 Tablet 1 01/10/2024 Active Active Problems Problem Noted Date Diagnosed Date Pre-eclampsia 11/29/2022 Gestational hypertension, antepartum 11/29/2022 Murmur 11/29/2022 Toxemia 12/05/2012 Gestational diabetes 09/21/2012 Overview (10/24/2012): Diet-controlled Vitamin D deficiency 06/22/2012 Overview (07/12/2012): 28.3 Comments Yes Encounters Date Type Department Care Team Description 08/02/2024 9:56 PM CDT - 08/02/2024 10:44 PM CDT Emergency [id number] [place] [address] Allen Noe DO Contusion of right foot, initial encounter (Primary Dx) Discharge Disposition: Home Self Care from Last 3 Months Immunizations Name Administration Dates Next Due DTaP 02/03/1992, 1,03/18/1991,1989, 1989,1989 Hepatitis B (Peds) 02/22/2001,12/07/2000, 000 Influenza, IIV3 (Age >=3 years) 07/10/2012,09/08 MMR 12/07/2000 Oral Polio Vaccine 02/03/1992, 1,1989,1989, 1989 Td (Age >=7 Years) 10/03/2000 Tdap 06/02/2022,09/03/2012 Family History Medical History Relation Name Comments Allergies Brother 2 Alcohol/Drug Father Alcoholism Father Allergies Father Hypertension Father Premature CHD (under age 60) Father MD Allergies Mother Hypertension Mother Allergies Sister 4 Relation Name Status Comments Brother 1 Alive Brother 2 Father Alive Maternal Grandmother Mother Alive Paternal Grandfather Paternal Grandmother Sister 1 Alive Sister 2 Alive Sister 3 Alive Sister 4 Son Alive Social History Tobacco Use Types Packs/Day Years Used Date Smoking Tobacco: Never Smokeless Tobacco: Never Tobacco Cessation:Counseling Given: Yes Comments: Alcohol Use Standard Drinks/Week Comments No 0 (1 standard drink = 0.6 oz pur e alcohol) Social Connections Answer Date Recorded Frequency of Communication with Friends and Fami ly Not on file 11/29/2022 Comments Yes Sex and Gender Information Value Date Recorded Sex Assigned at Not on file Gender Identity Not on file Sexual Orientation Not on file Obstetrics History Para Term AB IAB SAB Ectopic Multiple Livin g Live Births 4 2 2 0 1 2 Date Outcome GA Total Labor Labor/2nd/3rd Weight Sex Type Anes PTL Christine A1 A5 Name Clin 2004 22w 0d Neona ginny Demis e Comments:lost baby due to trauma, fall down stairs 2012 36w 3d 10h 00m/0h 05m/ 2.53 kg (5 lb 9.2 oz) M Vag Epidur al N Livin g 4 8 OVERB Y,BAB Y BOY Dr Lazo Delivery Location:[facility] Comments:Induced preec lampsia Current Last Filed Vital Signs Vital Sign Reading Time Taken Comments Blood Pressure 153/92 08/02/2024 9:34 PM CDT Pulse 90 08/02/2024 9:34 PM CDT Temperature 36.7 ??C (98 ??F) 08/02/2024 9:34 PM CDT Respiratory Rate 20 08/02/2024 9:34 PM CDT Oxygen Saturation 98% 08/02/2024 9:34 PM CDT Inhaled Oxygen Concentration - - Weight 77.1 kg (170 lb) 08/02/2024 9:34 PM CDT Height 152.4 cm (5') 08/02/2024 9:34 PM CDT Body Mass Index 33.2 08/02/2024 9:34 PM CDT Plan of Treatment Health Maintenance Due Date Last Done Comments Pneumococcal series for age 6-64 (1 of 2 - PCV) 1995 Depression screening for age 12+ 2001 Hepatitis C screening for ag e 18-79 2007 Pap test for age 21-65 09/23/2018 5, 01/14/2013, 07/10/2012, Additional history exists COVID-19 vaccine series ( season) 2024 Influenza for age 9-49 06/22/2024 07/10/2012, 2002 BMI (ht and wt on same day) for age 18+ 01/09/2025 01/10/2024, 11/29/2022 Tetanus booster 06/02/2032 06/02/2022, 08/22, 10/03/2000 RSV vaccine for adults or (1 - 1-dose 75+ series) 2064 HIV for age 15-65 Completed 07/10/2012 Tdap Completed 06/02/2022, 09/03/2012 Procedures Procedure Name Priority Date/Time Associated Diagnosis Comments XR FOOT 3 VIEWS RIGHT STAT 08/02/2024 9:44 PM CDT LEGAL ACTIVITY ADJUDICATOR THIN PREP PAP SCREEN IMAGED Routine 09/23/2015 3:06 PM WIRE COILER Screening for cervical cancer ANTI HIV 1/2 Routine 07/10/2012 2:20 PM CDT from Last 3 Months or Most Recently Relevant to Health Maintenance Results * XR FOOT 3 VIEWS RIGHT (08/02/2024 9:44 PM CDT) Anatomical Region Laterality Modality FEET, FOOT R Digital Radiogra phy 08/02/2024 10:1 2 PM CDT Impressions 08/02/2024 10:12 PM CDT Soft tissue swelling along the forefoot. No evidence of acute fracture. Dictated by Tanya Mendoza MD @ 08/02/2024 10:12:01 PM (Electronically Signed) Narrative 08/02/2024 10:12 PM CDT For Patients: ??As a result of the Cures Act, medical imaging exams and procedure reports are released immediately into your electronic medical record. ??You may view this report before your referring provider. ??If you have questions, please contact your health care provider. INDICATION: Pain. TECHNIQUE: Three views of the right foot. COMPARISON: None. FINDINGS: There is soft tissue swelling along the forefoot. No evidence of acute fracture or dislocation. The joint spaces are preserved. Procedure Note Tanya Mendoza MD - 08/02/2024 For Patients: As a result of the Cures Act, medical imagingexams and procedure reports are released immediately into your electronicmedical record. You may view this report before your referring provider.If you have questions, please contact your health care provider. INDICATION: Pain. TECHNIQUE: Three views of the right foot. COMPARISON: None. FINDINGS: There is soft tissue swelling along the forefoot. No evidence of acutefracture or dislocation. The joint spaces are preserved. IMPRESSION: Soft tissue swelling along the forefoot. No evidence of acute fracture. Dictated by Tanya Mendoza MD @ 08/02/2024 10:12:01 PM (Electronically Signed) Allen Noe DO GENERAL IMAGING * LEGAL ACTIVITY ADJUDICATOR THIN PREP PAP SCREEN IMAGED (09/23/2015 3:06 PM WIRE COILER) LEGAL ACTIVITY ADJUDICATOR CYTOLOGY See Anatomic Pathology case 09/28/2015 4:00 PM WIRE COILER [facility] Specimen (specimen) Non-Blood / Unknown 09/23/2015 3:06 PM WIRE COILER 09/23/2015 3:06 PM WIRE COILER Genny Lazo MD PATHOLOGY/CYTOLOG Y [facility] [address] [place] [address], * ANTI HIV 1/2 [54785.0] (07/10/2012 2:20 PM CDT) ANTI HIV 1/2 Non-reacti ve [facility] Blood specimen (specimen) BLOOD SPECIMEN / Unknown 07/10/2012 2:20 PM CDT 07/10/2012 2:12 PM CDT Genny Lazo MD SEND OUTS [facility] INTERNAL ZIP [id number] [place] [address] from Last 3 Months or Most Recently Relevant to Health Maintenance Advance Directives * Full Code (Latest Code Status on File) Date Activated Date Inactivated Comments 12/05/2012 6:17 AM 12/07/2012 9:39 PM * Full Code Date Activated Date Inactivated Comments 12/05/2012 1:03 AM 12/05/2012 6:17 AM * Full Code Date Activated Date Inactivated Comments 12/03/2012 4:10 PM 12/05/2012 1:03 AM * Full Code Date Activated Date Inactivated Comments 11/30/2012 9:24 PM 12/01/2012 3:09 AM * Full Code Date Activated Date Inactivated Comments 11/30/2012 9:03 PM 11/30/2012 9:24 PM Care Teams Ruby Developer Relationship Specialty Start Date End Date Pcp, No . PCP - General 08/02/24
--- OUTSIDE RECORDS SUMMARY | 2024-08-29 10:51 | XMS_ITS | Encounter Summary ---
Author Organization [facility] Address [address] [address] Phone Care Team Providers Care Senior Mechanical Project Manager Name Role Phone Elsewhere, Pcp Primary Care Provider Unavailabl e Encounter Details Date Type Department Care Team (Latest Contact Info) Description 07/28/2024 Travel Social History Tobacco Use Types Packs/Day [...] filedocumented in this encounter Care Teams Senior Mechanical Project Manager Relationship Specialty Start Date End Date Elsewhere, Pcp PCP - General 07/02/24 documented as of this encounter
--- OUTSIDE RECORDS SUMMARY | 2024-08-29 10:51 | XMS_ITS | Encounter Summary ---
Author Organization [facility] Address [address] [address] Phone Care Team Providers Care National Sales Director Name Role Phone Elsewhere, Pcp Primary Care Provider Unavailabl e Reason for Visit * Reason Comments Sore Throat Encounter Details Date Type Department Care Team ([facility] Contact Info) Description 07/02/2024 6:45 PM CDT Office Visit [facility] [address] [place] [phone] Maricruz Short, JIGSAWYER, FOOT ORTHOPEDIST [address] [place] [address] Strep throat (Primary Dx); Acute non-recurrent sinusitis, unspecified location Social History Tobacco Use Types Packs/Day Years [...] Sign Reading Time Taken Comments Blood Pressure 118/74 07/02/2024 6:54 PM CDT Pulse 86 07/02/2024 6:54 PM CDT Temperature 36.7 ??C (98 ??F) 07/02/2024 6:54 PM CDT Respiratory Rate 16 07/02/2024 6:54 PM CDT Oxygen Saturation 99% 07/02/2024 6:54 PM CDT Inhaled Oxygen Concentration - - Weight 74.4 kg (164 lb) 07/02/2024 6:54 PM CDT Height - - Body Mass Index - - documented in this encounter Patient Instructions * Patient Instructions* Maricruz Short APRN, CNP - 07/02/2024 6:45 PM CDT Start treatment with antibiotics. Contagious until 24 hours after starting the antibiotics. Change toothbrush in 48 hours. Tylenol, lozenges, cold substances, ibuprofen for discomfort. Rest and hydrate. Claritin daily as needed for sinus. Follow up if symptoms persist or worsen. documented in this encounter Ordered Prescriptions Prescription Sig Dispense Quantity Refills Last Filled Start Date End Date loratadine (Claritin) 10 MG tabletIndications: Acute non-recurrent sinusitis, unspecified location Take 1 Tablet by mouth one time a day. Take on an empty stomach. 30 Tablet 07/02/2024 amoxicillin (Amoxil) 500 MG capsuleIndications :Infection Take 1 Capsule by mouth two times a day for 10 days. Indications: Infection 20 Capsule 07/02/2024 4 documented in this encounter Progress Notes * Maricruz Short APRN, CNP - 07/02/2024 6:45 PM CDT [facility] Office Visit Kolton Canela is a 34 year old female who presents for Sore Throat HPI Patient presents with maxillary sinus pressure. Symptoms started about 3 weeks ago. She has been doing the [place] pot. She will get a small amount of purulent drainage out. No drainage throughout theday. Patient reports a history of sinus infections. Patient reports sore throat that started more recently. No sick contacts reported. Swelling makes the pain worse. Denies fevers, cough, trouble breathing, GI symptoms. Patient is currently 30 weeks gestation. Objective Jump to Vitals Flowsheets BP 118/74 (BP Location: Right arm, BP Patient Position: Sitting, Cuff Size: Adult Regular) Pulse 86 Temp 36.7 ??C (98 ??F) (Temporal) Resp 16 Wt 74.4 kg (164 lb) SpO2 99% Physical Exam Constitutional: Appearance: Normal appearance. HENT: Head: Comments: Bilateral maxillary sinus tenderness Nose: No congestion or rhinorrhea. Mouth/Throat: Mouth: Mucous membranes are moist. Pharynx: Oropharynx is clear. Cardiovascular: Rate and Rhythm: Normal rate and regular rhythm. Heart sounds: Normal heart sounds. Pulmonary: Effort: Pulmonary effort is normal. Breath sounds: Normal breath sounds. Lymphadenopathy: Cervical: No cervical adenopathy. Neurological: Mental Status: She is alert. Assessment/Plan 1. Strep throat (Primary) - STREP ANTIGEN SCREEN GRP A - amoxicillin (Amoxil) 500 MG capsule; Take 1 Capsule by mouth two times a day for 10 days. Indications: Infection 2. Acute non-recurrent sinusitis, unspecified location - loratadine (Claritin) 10 MG tablet; Take 1 Tablet by mouth one time a day. Take on an empty stomach. Plan: Start treatment with antibiotics. Contagious until 24 hours after starting the antibiotics. Change toothbrush in 48 hours. Tylenol, lozenges, cold substances for discomfort. Rest and hydrate. Claritin daily as needed for sinus. Follow up if symptoms persist or worsen. Treatment plan, diagnosis, medication administration, and medication side effects discussed with patient. All questions were encouraged and answered at this time. Patient and/or guardian in agreementwith plan. Patient was stable at time of discharge. Follow-up urgently if symptoms persist or worsen. documented in this encounter Miscellaneous Notes * Clinical Note - Pamela Wall LPN - 07/02/2024 6:45 PM CDT Patient states that she has had sinus pain and pressure for the last three weeks. She states that she has had a sore throat for four days as well. She states that it hurts worse when she swallows andeats. documented in this encounter Plan of Treatment Not on file documented as of this encounter Procedures Procedure Name Priority Date/Time Associated Diagnosis Comments STREP ANTIGEN SCREEN GRP A Routine 07/02/2024 6:56 PM CDT Strep throat documented in this encounter Results * (ABNORMAL) STREP ANTIGEN SCREEN GRP A (07/02/2024 6:56 PM CDT) Group A Strep Antigen Positive(A ) Negative 07/02/2024 7:17 PM CDT [facility] Swab STRUCTURE OF THROAT / Unknown Non-blood collection / Unknown 07/02/2024 6:56 PM CDT 07/02/2024 7:11 PM CDT Maricruz Short APRN, FOOT ORTHOPEDIST EC MICROBIOLOGY - GENERAL ORDERABLES Final Result [facility] [address] [place] [address] documented in this encounter Visit Diagnoses Diagnosis Strep throat- Primary Streptococcal sore throat Acute non-recurrent sinusitis, unspecified location documented in this encounter Historical Medications * This list may reflect changes made after this encounter. omeprazole (PriLOSEC) 10 MG delayed-release capsule 06/19/2024 metFORMIN (Glucophage) 500 MG tablet Take 500 mg by mouth two times a day. 06/06/2024 lancets, Accu-Chek Softclix, (Accu-Chek Softclix) TEST FOUR TIMES A DAY 06/30/2024 BD Pen Needle Mi 2nd Gen 32G X 4 MM Misc USE 4 PEN NEEDLES A DAY OR DIRECTED 05/09/2024 Levemir FlexPen 100 UNIT/ML pen injection 50 Units at bedtime. 06/02/2024 NovoLOG FlexPen 100 UNIT/ML pen injection TAKE 6 UNITS WITH BREAKFAST, MAY TITRATE UP TO 50 UNITS DAILY 06/08/2024 Accu-Chek Guide USE 1 STRIP FOUR TIMES A DAY 06/19/2024 Blood Glucose Monitoring Suppl (Accu-Chek Guide) w/Device Kit USE TO TEST BLOOD SUGAR 4 TIMES DAILY OR DIRECTED 02/29/2024 aspirin EC 81 MG tablet Take 81 mg by mouth one time a day. ketone - urine test (Ketostix) strip USE 1 STRIP ONCE DAILY FOR 1 WEEK, THEN WEEKLY IF NEGATIVE. 03/03/2024 28-0.8 MG Tablet 06/19/2024 added in this encounter Care Teams National Sales Director Relationship Specialty Start Date End Date Elsewhere, Pcp PCP - General 07/02/24 documented as of this encounter
--- OUTSIDE RECORDS SUMMARY | 2024-08-29 10:51 | XMS_ITS | Clinical Summary ---
Author Organization [facility] Address [address] [address] Phone Care Team Providers Care Pearl Peller Name Role Phone Elsewhere, Pcp Primary Care Provider Unavailabl e Allergies Active Allergy Reactions Criticality Noted Date Comments Grass Pollen(K-O-R-T-Swt Eyal) Wheezing,Pruritis High 04/17/2022 [place] pollens Medications 28-0.8 MG Tablet 4 Active ketone - urine test (Ketostix) strip USE 1 STRIP ONCE DAILY FOR 1 WEEK, THEN WEEKLY IF NEGATIVE. 4 Active aspirin EC 81 MG tablet Take 81 mg by mouth one time a day. Active Blood Glucose Monitoring Suppl (Accu-Chek Guide) w/Device Kit USE TO TEST BLOOD SUGAR 4 TIMES DAILY OR DIRECTED 4 Active Accu-Chek Guide USE 1 STRIP FOUR TIMES A DAY 4 Active NovoLOG FlexPen 100 UNIT/ML pen injection TAKE 6 UNITS WITH BREAKFAST, MAY TITRATE UP TO 50 UNITS DAILY 4 Active Levemir FlexPen 100 UNIT/ML pen injection 50 Units at bedtime. 4 Active BD Pen Needle Mi 2nd Gen 32G X 4 MM Misc USE 4 PEN NEEDLES A DAY OR DIRECTED 4 Active lancets, Accu-Chek Softclix, (Accu-Chek Softclix) TEST FOUR TIMES A DAY 4 Active metFORMIN (Glucophage) 500 MG tablet Take 500 mg by mouth two times a day. 4 Active omeprazole (PriLOSEC) 10 MG delayed-release capsule 4 Active loratadine (Claritin) 10 MG tabletIndication s:Acute non-recurrent sinusitis, unspecified location Take 1 Tablet by mouth one time a day. Take on an empty stomach. 30 Tablet 4 Active labetalol (Trandate) 100 MG tablet Take 100 mg by mouth two times a day. Active Active Problems Estimated Date of Delivery Comme nts Yes 09/10/2024 Based on Other B asis No known active problems Encounters Date Type Department Care Team Description 08/26/2024 8:11 PM MACHINERY ENGINEER - 08/26/2024 11:59 PM MACHINERY ENGINEER Emergency [facility] EMERGENCY DEPARTMENT [address] [place] [phone] Cathi Childress MD hypertension (Primary Dx); Acute intractable headache, unspecified headache type; Lower extremity edema Discharge Disposition: Home and/or Self Care 08/26/2024 Travel 07/28/2024 10:21 AM CDT - 07/28/2024 12:39 PM CDT Hospital Encounter [facility] DEL[facility] OUTPATIENT [address] [place] [phone] Timoteo Chavira MD Mohling, Dennis R, MD Discharge Disposition: Home and/or Self Care 07/28/2024 Travel 07/02/2024 6:45 PM CDT Office Visit [facility] [address] [place] [phone] Maricruz Short APRN, DIRECTOR MARKET RESEARCH Strep throat (Primary Dx); Acute non-recurrent sinusitis, unspecified location 07/02/2024 Travel from Last 3 Months Social History Tobacco Use Types Packs/Day Years Used Date Smoking Tobacco: Never Passive Smoke Exposure: Never Smokeless Tobacco: Never Alcohol Use Standard Drinks/Week Comments Not Currently 0 (1 standard drink = 0.6 oz pur e alcohol) EH IP Custom IPV Answer Date Recorded Do [...] Orientation Straight 07/28/2024 11 :04 AM CDT Obstetrics History Para Term AB IAB SAB Ectopic Molar Multiple Living Live Births 4 2 2 1 2 Date Outcome GA Total Labor Labor/2nd/3rd Weight Sex Type Anes PTL Christine A1 A5 Name Clin AB Current Summary Episode Dates Number of Fetuses Estimated Date of Delivery 07/28/2024 - Present (08/29/2024) 09/10/2024 (set by Linda Hairston RN on 07/28/2024 based on Other Basis) Dating Summary Based On CARLOS GA Diff Other Basis 09/10/2024 Working Overview and Plan sex:Female Support person:Madhavi Vitals Pregravid Weight Height TWG (As of 08/29/2024) Pregrav id BMI 1.524 m (5') Date GA Fund Present FHR Mvmt BP Weight Edema Alb Glu Ket Dil/ Eff/Sta 4 33w5d Inpatient data not displayed here. See encounter summary. Notes Progress Notes - Hospital En counter - 07/28/2024 - GA:33w5d 07/28/2024 - 33w5d - Celina Bella, RN Patient discharge education and instructions completed by RN. Patient verbalized understanding and readiness for discharge. Planned follow up with provider as previously scheduled later this week. Stressed to pt and the importance of seeing primary OB staff so best care is provided to she and baby. Patient was discharged to Home or with family at 1239 accompanied by Self to car. Last Filed Vital Signs Vital Sign Reading Time Taken Comments Blood Pressure 147/88 08/26/2024 11:04 PM MACHINERY ENGINEER Pulse 72 08/26/2024 11:05 PM MACHINERY ENGINEER Temperature 36.6 ??C (97.9 ??F) 08/26/2024 8:10 PM CS T Respiratory Rate 16 08/26/2024 11:05 PM MACHINERY ENGINEER Oxygen Saturation 96% 08/26/2024 11:05 PM MACHINERY ENGINEER Inhaled Oxygen Concentration - - Weight 74.4 kg (164 lb) 08/26/2024 8:10 PM MACHINERY ENGINEER Height 152.4 cm (5') 08/26/2024 8:10 PM MACHINERY ENGINEER Body Mass Index 32.03 08/26/2024 8:10 PM MACHINERY ENGINEER Plan of Treatment Health Maintenance Due Date Last Done Comments Cervical Cancer Screening 1989 Last pap w/ HPV Testing 1989 Last pap w/o HPV Testing 1989 Hepatitis B Vaccine (Standin g Order) (1 of 3 - 19+ 3-dose series) 2008 PERTUSSIS (Standing Order) 2008 TETANUS (Standing Order) 2008 TDAP in 06/11/2024 COVID-19 Vaccine ( - 2023-2 5 season) 2024 Influenza Vaccine Seasonal (Standing Order) (#1) 2024 HPV Vaccine (Standing Order) Aged Out No longer eligible based on patient's age to complete this topic Pneumococcal/PCV20 Vaccine: Pediatrics (2-5 yrs) and At-Risk Patients (6-64 yrs) (Standing Order) Aged Out No longer eligible b ased on patient's age to complete this topic Procedures Procedure Name Priority Date/Time Associated Diagnosis Comments CULTURE, URINE STAT 08/26/2024 9:05 PM MACHINERY ENGINEER PROTEIN/CREATININE RATIO, RANDOM URINE STAT 08/26/2024 9:05 PM MACHINERY ENGINEER CREATININE, RANDOM URINE STAT 08/26/2024 9:05 PM MACHINERY ENGINEER URINALYSIS, REFLEX TO CULTURE STAT 08/26/2024 9:05 PM MACHINERY ENGINEER LDH STAT 08/26/2024 8:27 PM MACHINERY ENGINEER HOLD SLAUGHTER TUBE STAT 08/26/2024 8:27 PM MACHINERY ENGINEER HOLD DARK GREEN WHOLE BLOOD TUBE STAT 08/26/2024 8:27 PM MACHINERY ENGINEER HOLD RED TOP SERUM STAT 08/26/2024 8: 27 PM MACHINERY ENGINEER HOLD NA CITRATE STAT 08/26/2024 8:27 PM MACHINERY ENGINEER RAINBOW DRAW STAT 08/26/2024 8:27 PM MACHINERY ENGINEER URIC ACID STAT 08/26/2024 8:25 PM MACHINERY ENGINEER HEPATIC FUNCTION PANEL STAT 08/26/2024 8:25 PM MACHINERY ENGINEER BASIC METABOLIC PANEL STAT 08/26/2024 8:25 PM MACHINERY ENGINEER HEMOGRAM/DIFF STAT 08/26/2024 8:25 PM MACHINERY ENGINEER URINALYSIS, REFLEX TO CULTURE Routine 07/28/2024 11:44 AM CDT PLACENTAL ALPHA MICROGLOBULIN-1, ROM Routine 07/28/2024 10:52 AM CDT STREP ANTIGEN SCREEN GRP A Routine 07/02/2024 6:56 PM CDT Strep throat from Last 3 Months Results * (ABNORMAL) PROTEIN/CREATININE RATIO, RANDOM URINE (08/26/2024 9:05 PM MACHINERY ENGINEER) Urine Total Protein 16(H) <12 mg/dL 08/26/2024 11:20 PM MACHINERY ENGINEER [facility] Urine Creatinine, Random 62.6 No Established Reference Range mg/dL 08/26/2024 11:20 PM MACHINERY ENGINEER [facility] Urine Total Protein/Creat inine Ratio 0.26(H) <=0.20 08/26/2024 11:20 PM MACHINERY ENGINEER [facility] Urine VOIDED URINE SPECIMEN / Unknown Non-blood collection / Unknown 08/26/2024 9:05 PM MACHINERY ENGINEER 08/26/2024 11:08 PM MACHINERY ENGINEER us Cathi Childress MD EC URINE ORDERABLES Final Re sult [facility] [address] [place] [address], [facility] [phone] * CULTURE, URINE (08/26/2024 9:05 PM MACHINERY ENGINEER) Urine URINE SPECIMEN COLLECTION, CLEAN CATCH / Unknown Non-blood collection / Unknown 08/26/2024 9:05 PM MACHINERY ENGINEER 08/26/2024 9:24 PM MACHINERY ENGINEER [facility] LABORATORY - 08/28/2024 9:50 AM MACHINERY ENGINEER 50-100,000 cfu/mL mixed gram positive usual urogenital seth Three or more organisms present indicating contamination Cathi Childress MD EC MICROBIOLOGY - GENERAL OR DERABLES Final Result [facility] [address] [phone] * (ABNORMAL) URINALYSIS, REFLEX TO CULTURE (08/26/2024 9:05 PM MACHINERY ENGINEER) UA Color Light Yellow Light Yellow, Yellow 08/26/2024 9:24 PM [facility] Urine Appearance Clear Clear 08/26/20 9:24 PM [facility] Urine Specific [place] 1.010 1.005 - 1.030 08/26/2024 9:24 PM [facility] Urine pH 6.5 5.0 - 8.0 08/26/2024 9:24 PM [facility] Urine Leukocyte Esterase Trace(A) Negative 08/26/2024 9:24 PM [facility] Urine Nitrates Negative Negative 08/26/2024 9:24 PM [facility] Urine Protein Trace(A) Negative 08/26/2024 9:24 PM [facility] Urine Glucose Negative Negative 08/26/2024 9:24 PM [facility] Urine Ketones Negative Negative 08/26/2024 9:24 PM [facility] Urine Urobilinogen Normal Normal 08/26/2024 9:24 PM [facility] Urine Bilirubin Negative Negative 9:24 PM [facility] Urine Blood 4+(A) Negative 08/26/2024 9:24 PM [facility] Urine WBC's 0-5 0 - 5 /HPF 08/26/2024 9:24 PM MACHINERY ENGINEER [facility] Urine RBC's 2-8(A) 0 - 2 /HPF 08/26/2024 9:24 PM MACHINERY ENGINEER [facility] Urine Epithelial Cells Occasional( A) Negative /HPF 08/26/2024 9:24 PM MACHINERY ENGINEER [facility] Urine Bacteria Occasional( A) Negative /HPF 08/26/2024 9:24 PM MACHINERY ENGINEER [facility] Urine URINE SPECIMEN COLLECTION, CLEAN CATCH / Unknown Non-blood collection / Unknown 08/26/2024 9:05 PM MACHINERY ENGINEER 08/26/2024 9:11 PM MACHINERY ENGINEER Cathi Childress MD EC URINE ORDERABLES Final Re sult Performing Organization Address [facility] de Phone Number [facility] [address] [phone] * CREATININE, RANDOM URINE (08/26/2024 9:05 PM MACHINERY ENGINEER) Urine Creatinine, Random 60.5 No Established Reference Range mg/dL 08/26/2024 9:38 PM MACHINERY ENGINEER [facility] Urine URINE SPECIMEN COLLECTION, CLEAN CATCH / Unknown Non-blood collection / Unknown 08/26/2024 9:05 PM MACHINERY ENGINEER 08/26/2024 9:11 PM MACHINERY ENGINEER Cathi Childress MD EC URINE ORDERABLES Final Re sult Performing Organization Address City/[facility] Co de Phone Number [facility] [address] [phone] * HOLD SLAUGHTER TUBE (08/26/2024 8:27 PM MACHINERY ENGINEER) Blood BLOOD SPECIMEN / Unknown Venipuncture / Unknown 08/26/2024 8:27 PM MACHINERY ENGINEER 08/26/2024 8:30 PM MACHINERY ENGINEER us Cathi Childress MD EC CHEMISTRY ORDERABLES Cristiana l Result Performing Organization Address City/[facility]/ZIP Co de Phone Number [facility] [address] [phone] * HOLD RED TOP SERUM (08/26/2024 8:27 PM MACHINERY ENGINEER) Blood BLOOD SPECIMEN / Unknown Venipuncture / Unknown 08/26/2024 8:27 PM MACHINERY ENGINEER 08/26/2024 8:30 PM MACHINERY ENGINEER Cathi Childress MD EC LAB SEND OUT ORDERABLES F inal Result Performing Organization Address City/[facility] Co de Phone Number [facility] [address] [phone] * HOLD DARK GREEN WHOLE BLOOD TUBE (08/26/2024 8:27 PM MACHINERY ENGINEER) Blood BLOOD SPECIMEN / Unknown Venipuncture / Unknown 08/26/2024 8:27 PM MACHINERY ENGINEER 08/26/2024 8:30 PM MACHINERY ENGINEER Cathi Childress MD EC LAB SEND OUT ORDERABLES F inal Result Performing Organization Address [facility] Co de Phone Number [facility] [address] [phone] * HOLD NA CITRATE (08/26/2024 8:27 PM MACHINERY ENGINEER) Blood BLOOD SPECIMEN / Unknown Venipuncture / Unknown 08/26/2024 8:27 PM MACHINERY ENGINEER 08/26/2024 8:30 PM MACHINERY ENGINEER Cathi Childress MD EC HEMATOLOGY ORDERABLES Fin al Result Performing Organization Address City/[facility] Co de Phone Number [facility] [address] [phone] * (ABNORMAL) LACTATE DEHYDROGENASE (08/26/2024 8:27 PM MACHINERY ENGINEER) Lactate Dehydrogenase 299(H) 120 - 246 U/L 08/26/2024 9:28 PM MACHINERY ENGINEER [facility] Blood BLOOD SPECIMEN / Unknown Venipuncture / Unknown 08/26/2024 8:27 PM MACHINERY ENGINEER 08/26/2024 8:30 PM MACHINERY ENGINEER Cathi Childress MD EC CHEMISTRY ORDERABLES Cristiana l Result [facility] [address] [phone] * BASIC METABOLIC PANEL (08/26/2024 8:25 PM MACHINERY ENGINEER) Sodium 136 135 - 144 mmol/L 08/26/2024 9:00 PM [facility] Potassium 3.9 3.4 - 5.1 mmol/L 08/26/2024 9:00 PM [facility] Chloride 105 98 - 107 mmol/L 08/26/2024 9:00 PM [facility] Carbon Dioxide 26 22 - 30 mmol/L 08/26/2024 9:00 PM [facility] Calcium 9.1 8.6 - 10.3 mg/dL 08/26/2024 9:00 PM [facility] Glucose 89 74 - 100 mg/dL 08/26/2024 9:00 PM [facility] Blood Urea nitrogen 15 7 - 17 mg/dL 08/26/2024 9:00 PM [facility] Creatinine 0.67 0.52 - 1.04 mg/dL 08/26/2024 9:00 PM [facility] Anion Gap 5 5 - 15 mmol/L 08/26/2024 9:00 PM [facility] Glomerular Filtration Rate >60 >60 mL/min/1.7 3 m*2 08/26/2024 9:00 PM [facility] Comment:This calculation use s CKD-EPI 2020 equation; it has not been validated in women. Blood BLOOD SPECIMEN / Unknown Venipuncture / Unknown 08/26/2024 8:25 PM MACHINERY ENGINEER 08/26/2024 8:30 PM MACHINERY ENGINEER us Cathi Childress MD EC CHEMISTRY ORDERABLES Cristiana l Result [facility] [address] [phone] * (ABNORMAL) HEPATIC FUNCTION PANEL (08/26/2024 8:25 PM MACHINERY ENGINEER) Pathologist [facility] Alkaline Phosphatase 114 38 - 126 U/L 08/26/2024 9:00 PM [facility] Aspartate Aminotransferase 44(H) 14 - 36 U/L 08/26/2024 9:00 PM [facility] Alanine Aminotransferase 46(H) <35 U/L 08/26/2024 9:00 PM [facility] Protein, Total 6.3 6.3 - 8.2 g/dL 08/26/2024 9:00 PM [facility] Albumin 3.4(L) 3.5 - 5.0 g/dL 08/26/2024 9:00 PM [facility] Bilirubin, Total 0.4 0.2 - 1.3 mg/dL 08/26/2024 9:00 PM [facility] Bilirubin, Direct 0.00 <=0.30 mg/dL 08/26/2024 9:00 PM [facility] Bilirubin, Indirect 0.31 <=1.10 mg/dL 08/26/2024 9:00 PM [facility] Blood BLOOD SPECIMEN / Unknown Venipuncture / Unknown 08/26/2024 8:25 PM MACHINERY ENGINEER 08/26/2024 8:30 PM MACHINERY ENGINEER us Cathi Childress MD EC CHEMISTRY ORDERABLES Cristiana l Result Performing Organization Address City/[facility]/ZIP Co de Phone Number [facility] [address] [place], [place] [id number] [place] [address] * (ABNORMAL) HEMOGRAM/DIFFERENTIAL (08/26/2024 8:25 PM MACHINERY ENGINEER) Pathologist [facility] WBC 7.6 4.0 - 11.0 10*3/uL 08/26/2024 8:33 PM [facility] RBC 3.28(L) 3.80 - 5.20 10*6/uL 08/26/2024 8:33 PM [facility] HGB 8.6(L) 12.0 - 16.0 g/dl 08/26/2024 8:33 PM [facility] HCT 27.3(L) 35.0 - 47.0 % 08/26/2024 8:33 PM [facility] MCV 83.2 80 - 98 fL 08/26/2024 8:33 PM [facility] MCH 26.2(L) 27.0 - 34.0 pg 08/26/2024 8:33 PM [facility] MCHC 31.5(L) 32 - 36 g/dl 08/26/2024 8:33 PM [facility] PLT 301 150 - 420 10*3/uL 08/26/2024 8:33 PM [facility] Neutrophils Absolute 4.54 2.10 - 7.50 10*3/uL 08/26/2024 8:33 PM [facility] Lymphocytes Absolute 1.96 0.76 - 4.00 10*3/uL 08/26/2024 8:33 PM [facility] Monocytes Absolute 0.48 0.00 - 0.90 10*3/uL 08/26/2024 8:33 PM [facility] Eosinophils Absolute 0.25 0.04 - 0.54 10*3/uL 08/26/2024 8:33 PM [facility] Basophils Absolute 0.06 0.00 - 0.20 10*3/uL 08/26/2024 8:33 PM [facility] RDW-SD 39.7 36.5 - 46.3 fL 08/26/2024 8:33 PM [facility] RDW-CV 13.5 11.6 - 14.4 % 08/26/2024 8:33 PM [facility] Immature Granulocytes Absolute 0.35(H) 0.00 - 0.10 10*3/uL 08/26/2024 8:33 PM MACHINERY ENGINEER [facility] Nucleated RBCs Absolute 0.03(H) 0.00 - 0.00 10*3/uL 08/26/2024 8:33 PM [facility] Blood BLOOD SPECIMEN / Unknown Venipuncture / Unknown 08/26/2024 8:25 PM MACHINERY ENGINEER 08/26/2024 8:30 PM MACHINERY ENGINEER Cathi Childress MD EC HEMATOLOGY ORDERABLES Fin al Result Performing Organization Address [facility]/ZIP Co de Phone Number [facility] [address] [phone] * URIC ACID (08/26/2024 8:25 PM MACHINERY ENGINEER) Uric Acid 4.3 2.5 - 8.5 mg/dL 08/26/2024 9:00 PM MACHINERY ENGINEER [facility] Blood BLOOD SPECIMEN / Unknown Venipuncture / Unknown 08/26/2024 8:25 PM MACHINERY ENGINEER 08/26/2024 8:30 PM MACHINERY ENGINEER Cathi Childress MD EC CHEMISTRY ORDERABLES Cristiana l Result Performing Organization Address [facility] de Phone Number [facility] [address] [phone] * (ABNORMAL) URINALYSIS, REFLEX TO CULTURE (07/28/2024 11:44 AM CDT) UA Color Ronda(A) Light Yellow, Yellow 07/28/2024 12:14 PM CDT [facility] Urine Appearance Slightly Cloudy(A) Clear 07/28/2024 12:14 PM CDT [facility] Urine Specific [place] 1.005 1.005 - 1.030 07/28/2024 12:14 PM T [facility] Urine pH 7.0 5.0 - 8.0 07/28/2024 12:14 PM [facility] Urine Leukocyte Esterase Trace(A) Negative 07/28/2024 12:14 PM [facility] Urine Nitrates Negative Negative 07/28/2024 12:14 PM [facility] Urine Protein Trace(A) Negative 07/28/2024 12:14 PM [facility] Urine Glucose Negative Negative 07/28/2024 12:14 PM [facility] Urine Ketones Negative Negative 07/28/2024 12:14 PM [facility] Urine Urobilinogen 1.0(A) Normal 07/28/2024 12:14 PM [facility] Urine Bilirubin Negative Negative 12:14 PM [facility] Urine Blood Negative Negative 07/28/2024 12:14 PM [facility] Urine WBC's 0-5 0 - 5 /HPF 07/28/2024 12:14 PM [facility] Urine RBC's 0-2 0 - 2 /HPF 07/28/2024 12:14 PM [facility] Urine Epithelial Cells Occasional( A) Negative /HPF 07/28/2024 12:14 PM [facility] Urine Bacteria Negative Negative /HPF 07/28/2024 12:14 PM [facility] Urine URINE SPECIMEN COLLECTION, CLEAN CATCH / Unknown Non-blood collection / Unknown 07/28/2024 11:44 AM CDT 07/28/2024 11:49 AM CDT us Asher Holt MD EC URINE ORDERABLES Final Re sult [facility] [address] [phone] * PLACENTAL ALPHA MICROGLOBULIN-1, ROM (07/28/2024 10:52 AM CDT) PAMG Negative Negative 07/28/2024 11:18 AM CDT [facility] Swab VAGINAL SWAB / Unknown Non-blood collection / Unknown 07/28/2024 10:52 AM CDT 07/28/2024 10:57 AM CDT us Asher Holt MD EC CHEMISTRY ORDERABLES Cristiana l Result [facility] [address] [place] [address], [facility] [phone] * (ABNORMAL) STREP ANTIGEN SCREEN GRP A (07/02/2024 6:56 PM CDT) Group A Strep Antigen Positive(A ) Negative 07/02/2024 7:17 PM CDT [facility] Swab STRUCTURE OF THROAT / Unknown Non-blood collection / Unknown 07/02/2024 6:56 PM CDT 07/02/2024 7:11 PM CDT us Maricruz Short BEHAVIORAL HEALTH AIDE, DIRECTOR MARKET RESEARCH EC MICROBIOLOGY - GENERAL ORDERABLES Final Result Performing Organization Address City/[facility]/ZIP Co de Phone Number [facility] [address] [place] [address], [facility] [phone] from Last 3 Months Insurance [facility] Care Teams Pearl Peller Relationship Specialty Start Date End Date Elsewhere, Pcp PCP - General 07/02/24
--- OUTSIDE RECORDS SUMMARY | 2024-08-29 10:51 | XMS_ITS | Encounter Summary ---
Author Organization [facility] Address [address] [address] Phone Care Team Providers Care Automatic Gluing Machine Operator Name Role Phone Elsewhere, Pcp Primary Care Provider Unavailabl e Encounter Details Date Type Department Care Team (Latest Contact Info) Description 08/26/2024 Travel Social History Tobacco Use Types Packs/Day [...] on filedocumented in this encounter Care Teams Automatic Gluing Machine Operator Relationship Specialty Start Date End Date Elsewhere, Pcp PCP - General 07/02/24 documented as of this encounter
--- OUTSIDE RECORDS SUMMARY | 2024-08-29 10:52 | XMS_ITS | Encounter Summary ---
Author Organization [facility] Address [address] [place] [address] Care Team Providers Care Track Repair Worker Name Role Phone No Ref-Primary, Physician Unavailable Farrukh Gaspar MD Unavailable Kim Doll RD Unavailable Unavailab Tara Barbosa [facility] Unavailable [phone] Farrukh Gaspar MD Unavailable [phone] Padmini Calderon DO Unavailable Padmini Calderon DO Unavailable Lakesha Padron APRN [facility] Primary Care Provider [phone] Reason for Visit * Auth/Cert (Routine) Specialty Diagnoses / Procedures Referred By Contyasmany t Referred To Contact sergeant at arms Diagnoses Insulin controlled gestational diabetes mellitus (GDM) in third trimester [facility] [address] [place] [address] Phone: tel: fax: Referral ID Status Reason Start Date Expiration Date Visits Re quested Visits Authorized [id number] 1 1 Encounter Details Date Type Department Care Team (Late st Contact Info) Description 08/20/2024 1:44 PM CDT Anesthesia Event [facility] [address] [place] [address] Alexander Mina MD [facility] [address] [place] [address] Obinna Gautam MD [address] [address] Anesthesia Record Procedure Summary Procedure Name Responsible Anesthesiologist Anesthesia Start Time Anesthesia Stop Time SECTION, WITH BILATERAL SALPINGECTOMY (Abdomen) Alexander Mina MD 08/20/24 1344 08/20/24 1942 Events Date Time Event Comment 08/20/2024 1344 An Start Anesthesia Star t is defined as when the anesthesia provider assumed care, began anesthesia prep, remained continuously present with the patient, and excludes all time for performing the pre-anesthesia evaluation. The Pre-Anesthesia Evaluation was completed before Anesthesia Start. 1344 AN FACE TIME IN 1401 An Facetime Out 1757 Epi to C-S / Surg. Case [id number] An Start Data 1757 AN REASSESS I attest that I have identified and re-evaluated the patient immediately before the induction of anesthesia and I am satisfied that the anesthetic plan is suitable for the patient's condition and procedure. The first vital signs recorded are pre-induction. Fadumo Romero APRN CUSTOMER EXPERIENCE MANAGER 1758 MD Present 180 Anesthesia Ready for Procedu re 180 MD Present 181 MD Present 182 Quick Note Doctor note deedee rine rupture and Dr Mina called to OR 182 Uterine Incision 182 Baby Delivered 182 MD Present 1829 MD Present 1833 Quick Note 1841 Quick Note Methlyene blue to [place] per RN and surgeon order 185 Quick Note Pt does not wan t any more pain meds at this time 1853 MD Present 1859 MD Present 193 MD Present 193 an stop data 1941 An Stop Electronically signed by Marguerite Gambino APRN CUSTOMER EXPERIENCE MANAGER on August 20, 2024 7:42 PM Meds Name Total 0.125% bupivacaine (Epidural) 10 mL fentaNYL 50 mcg/mL 200 mcg phenylephrine 0.1 mg/mL infusion (mcg/kg /min) 2 mg ondansetron 2 mg/mL 4 mg oxytocin 30 units in 500 mL 0.9% NaCl in fusion 333.33 mL morphine PF 1 mg/mL (epidural) 1.5 mg azithromycin (ZITHROMAX) 500 mg in NS 250 mL intermittent infusion 500 mg ceFAZolin Sodium (ANCEF) injection 2 g 2 g fentaNYL (SUBLIMAZE) 2 mcg/m L, ROPivacaine (NAROPIN) 0.1% in NaCl 0.9% for PIB + PCEA PREMIX Cannot be calculated lidocaine 2% /EPI 1:200,000 20 mL dexmedeTOMIDine (PRECEDEX) 4 mcg/mL in sodium chloride 0.9 % 100 mL infusion 24 mcg lactated ringers infusion 1,600 mL albumin 5% 250 mL * Agents Name O2 Delivery Device O2 Auxiliary * Blood No blood administrations on file. Lines, Drains, and Airways Type Details Placement Removal Incision/Surgical Site Incision; 4; 1930; Anterior; Pelvis; incision 08/20/24 1930 by Christina Reeves RN Peripheral IV 08/20/24; 0900; 18 G ; BD; Right, Dorsal; Hand; Chlorhexidine 08/20/24 0900 by Jeannine Evans RN 08/23/24 1150 by Mandie Abreu RN Peripheral IV 08/20/24; 0956; 20 G ; BD; Anterior, Left; Lower forearm 08/20/24 0956 by Jeannine Evans RN 08/23/24 1100 by Mandie Abreu RN Epidural 08/20/24; 1351; Physician; Epidural; Marguerite Gambino; Tip intact 08/20/24 1351 by Jeannine Evans RN 08/20/24 1932 by Marguerite Gambino APRN CUSTOMER EXPERIENCE MANAGER Urethral Catheter 08/20/24; 1730; POD 1 08/20/24 1730 by Jeannine Evans RN 08/21/24 1000 by Jeannine Evans RN documented in this encounter Social History Tobacco Use Types Packs/Day Years Used Date Smoking Tobacco: Never Smokeless Tobacco: Never Alcohol Use Standard Drinks/Week Comments Never 0 (1 standard drink = 0.6 oz pur e alcohol) PHQ-2 Answer Date Recorded PHQ-2 Score 1 06/13/2024 Adolescent Education Answer Date Record ed Getting School Help Needed Not on file 05/15 Food Insecurity Answer Date Recorded Within the past 12 months, d id you worry that your food would run out before you got money to buy more? No 08/20/2024 Within the past 12 months, d id the food you bought just not last and you didn? t have money to get more? No 08/20/2024 Housing Stability Answer Date Recorded Do you have housing? (Gloria vega is defined as stable permanent housing and does not include staying ouside in a car, in a tent, in an abandoned building, in an overnight half-way, or couch-surfing.) Yes 08/20/2024 Are you worried about losing your housing? No 08/20/2024 Financial Resource Strain Answer Date R ecorded Within the past 12 months, h ave you or your family members you live with been unable to get utilities (heat, electricity) when it was really needed? No 08/20/2024 Transportation Needs Answer Date Record ed Within the past 12 months, h as lack of transportation kept you from medical appointments, getting your medicines, non-medical meetings or appointments, work, or from getting things that you need? No 08/20/2024 Interpersonal Safety Answer Date Record ed Do you feel physically and e motionally safe where you currently live? Yes 08/20/2024 Within the past 12 months, h ave you been hit, slapped, kicked or otherwise physically hurt by someone? No 08/20/2024 Within the past 12 months, h ave you been humiliated or emotionally abused in other ways by your partner or ex-partner? No 08/20/2024 Comments No Sex and Gender Information Value Date Recorded Sex Assigned at Not on file Legal Sex Female 5:03 AM HAT CONDITIONER Gender Identity Not on file Sexual Orientation Not on file documented as of this encounter OR Notes * Anesthesia Postprocedure Evaluation - Mao Huerta MD - 08/21/2024 9:32 AM CDT Patient: Rola Mckeon Procedure: Procedure(s): SECTION, WITH BILATERAL SALPINGECTOMY Cervical Ripening Anesthesia Type: Epidural Note: Postop Pain Control: Uneventful Sign Out: Well controlled pain PONV: No Neuro/Psych: Uneventful Sign Out: Acceptable/Baseline neuro status Airway/Respiratory: Uneventful Sign Out: Acceptable/Baseline resp. status CV/Hemodynamics: Uneventful Sign Out: Acceptable CV status; No obvious hypovolemia; No obvious fluid overload Other NRE: DID A NON-ROUTINE EVENT OCCUR? No Last vitals: Vitals: 08/21/24 0727 08/21/24 0732 08/21/24 0737 BP: 128/76 Pulse: Resp: Temp: SpO2: 94% 94% 95% Electronically Signed By: Mao Huerta MD August 21, 2024 9:32 AM * Anesthesia Procedure Notes - Obinna Gautam MD - 08/20/2024 4:11 PM CDTAssociated Order(s): Epidural Block Epidural catheter Procedure Note Pre-Procedure Staff - Anesthesiologist: Obinna Gautam MD Performed By: anesthesiologist Location: OB Procedure Start/Stop Times: 08/20/2024 1:44 PM and 08/20/2024 2:01 PM Pre-Anesthestic Checklist: patient identified, IV checked, risks and benefits discussed, informed consent, monitors and equipment checked, pre-op evaluation and at physician/surgeon's request Timeout: Correct Patient: Yes Correct Procedure: Yes Correct Site: Yes Correct Position: Yes Procedure Documentation Procedure: epidural catheter Diagnosis: Labor Patient Position: sitting Patient Prep/Sterile Barriers: sterile gloves, mask, patient draped Skin prep: Chloraprep Local skin infiltrated with mL of 1% lidocaine. Insertion Site: L3-4. (midline approach). Technique: LORT saline BJ at 6 cm. Needle Type: Touhy needle Needle Gauge: 17. Needle Length (Inches): 3.5 Catheter threaded easily. Threaded 12 cm at skin. # of attempts: 1 and # of redirects: Assessment/Narrative Paresthesias: No. Test dose of 3 mL lidocaine 1.5% w/ 1:200,000 epinephrine at 13:53 CDT. Test dose negative, 3 minutes after injection, for signs of intravascular, subdural, or intrathecalinjection. Insertion/Infusion Method: LORT saline Aspiration negative for Heme or CSF via Epidural Catheter. Medication(s) Administered 0.125% bupivacaine (Epidural) - EPIDURAL 10 mL - 08/20/2024 1:56:00 PM Medication Administration Time: 08/20/2024 1:44 PM FOR [facility] ([facility] ONLY: Pain Team Contact information: please page the Pain Team Via Get Satisfaction.Search Pain. During daytime hours, please page the attending first. At night please page the resident first. * Anesthesia Preprocedure Evaluation - Alexander Mina MD - 08/20/2024 1:44 PM CDT Anesthesia Pre-Procedure Evaluation Patient: Rola Mckeon : 1990 Procedure : * No procedures listed * Cervical Ripening Past Medical History: Diagnosis Date ??? Abnormal Pap smear of cervix ??? Asthma ??? Enlarged aorta (H) ??? Gestational diabetes ??? Hypertension ??? Uncomplicated asthma ??? Varicella Past Surgical History: Procedure Laterality Date ??? SECTION 07/19/2022 Allergies Allergen Reactions ??? Grass Pollen(K-O-R-T-Swt Eyal) Itching and Difficulty breathing [place] pollens Social History Tobacco Use ??? Smoking status: Never ??? Smokeless tobacco: Never Substance Use Topics ??? Alcohol use: Never Wt Readings from Last 1 Encounters: 08/09/24 73 kg (161 lb) Anesthesia Evaluation No history of anesthetic complications ROS/MED HX ENT/Pulmonary: (+) asthma Neurologic: - neg neurologic ROS Cardiovascular: Comment: Dilated aorta METS/Exercise Tolerance: Hematologic: - neg hematologic ROS Musculoskeletal: GI/Hepatic: (+) GERD, Renal/Genitourinary: Endo: (+) gestational diabetes, Psychiatric/Substance Use: Infectious Disease: Malignancy: Other: Physical Exam Airway Neck ROM: full Mouth opening: > 3 cm Respiratory Devices and Support Dental Cardiovascular cardiovascular exam normal Pulmonary pulmonary exam normal OUTSIDE LABS: CBC: Lab Results Component Value Date WBC 9.4 08/20/2024 WBC 9.7 08/14/2024 HGB 11.2 (L) 08/20/2024 HGB 10.8 (L) 08/14/2024 HCT 33.6 (L) 08/20/2024 HCT 32.6 (L) 08/14/2024 PLT 199 08/20/2024 PLT 188 08/14/2024 BMP: Lab Results Component Value Date NA 136 08/20/2024 NA 136 08/14/2024 POTASSIUM 3.6 08/20/2024 POTASSIUM 3.6 08/14/2024 CHLORIDE 105 08/20/2024 CHLORIDE 103 08/14/2024 CO2 19 (L) 08/20/2024 CO2 20 (L) 08/14/2024 BUN 5.6 (L) 08/20/2024 BUN 6.0 08/14/2024 CR 0.49 (L) 08/20/2024 CR 0.59 08/14/2024 GLC 73 08/20/2024 GLC 92 08/20/2024 COAGS: No results found for: PTT, INR, FIBR POC: Lab Results Component Value Date HCGS Negative 06/26/2014 HEPATIC: Lab Results Component Value Date ALBUMIN 3.1 (L) 08/20/2024 PROTTOTAL 6.0 (L) 08/20/2024 ALT 13 08/20/2024 AST 29 08/20/2024 ALKPHOS 102 08/20/2024 BILITOTAL 0.4 08/20/2024 OTHER: Lab Results Component Value Date A1C 5.3 08/20/2024 LOYDA 8.4 (L) 08/20/2024 MAG 1.6 (L) 07/22/2024 LIPASE 22 07/21/2024 Anesthesia Plan ASA Status: 3 Anesthesia Type: Epidural. Consents Anesthesia Plan(s) and associated risks, benefits, and realistic alternatives discussed. Questions answered and patient/training representative(s) expressed understanding. - Discussed: - Discussed with: Patient, Spouse Postoperative Care Comments: Other Comments: 08/20 1730 Patient to C/S for intolerance of labor. Epidural working well. Will use epidural and give Duramorph for POA. Discussed GA or IV analgesics prn. Alexander Mina MD neg OB ROS. Obinna Gautam MD I have reviewed the pertinent notes and labs in the chart from the past 30 days and (re)examined the patient. Any updates or changes from those notes are reflected in this note. # Hypoalbuminemia: Lowest albumin = 3.1 g/dL at 08/20/2024 9:13 AM, will monitor as appropriate # Drug Induced Platelet Defect: home medication list includes an antiplatelet medication # Hypertension: Noted on problem list # Acute Hypoxic Respiratory Failure: Documented O2 saturation < 90%. Continue supplemental oxygen as needed # Asthma: noted on problem list documented in this encounter Miscellaneous Notes * Anesthesia Care Transfer Note - Marguerite Gambino APRN CRNA - 08/20/2024 7:42 PM CDT Patient: Rola Mckeon Procedure: Procedure(s): SECTION, WITH BILATERAL SALPINGECTOMY Cervical Ripening Diagnosis: 41 weeks gestation of [O48.0, Z3A.41] Diagnosis Additional Information: No value filed. Anesthesia Type: No value filed. Note: Oropharynx: oropharynx clear of all foreign objects Level of Consciousness: awake Oxygen Supplementation: room air Independent Airway: airway patency satisfactory and stable Dentition: dentition unchanged Vital Signs Stable: post-procedure vital signs reviewed and stable Report to RN Given: handoff report given Patient transferred to: Labor and Delivery Handoff Report: Identifed the Patient, Identified the Reponsible Provider, Reviewed the pertinent medical history, Discussed the surgical course, Reviewed Intra-OP anesthesia mangement and issues during anesthesia, Set expectations for post-procedure period and Allowed opportunity for questions andacknowledgement of understanding Vitals: Vitals Value Taken Time BP 138/75 08/20/241941 Temp 37 ??C (98.6 ??F) 08/20/241941 Pulse 89 08/20/241941 Resp 14 08/20/241941 SpO2 98 % 08/20/241941 Electronically Signed By: Marguerite Gambino APRN CRNA August 20, 2024 7:42 PM documented in this encounter Plan of Treatment Not on file documented as of this encounter Goals Goal Patient Goal Type Associated Problems Recent Progress Patient-Stated? Author Create an action plan to increase financial stability Care Plan Patient expresses financial resource strain No Patt Gautam, GRAIN II FARMWORKER Note: Barriers: Lack of housing Strengths: Engaged in care coordination Patient expressed understanding of goal: YES Action steps to achieve this goal: 1. I will review the resources provided by disabilities caregiver 2. I will I will contact my care team with questions, concerns, or support needs. 3. I will use the clinic as a resource, and I understand I can contact my clinic with 24/7 after hours services available. Community Service Officer Coordinator will remain available as needed. documented as of this encounter Procedures Procedure Name Priority Date/Time Associated Diagnosis Comments ANE EPIDURAL BLOCK Routine 08/20/2024 1: 44 PM CDT documented in this encounter Results * Epidural Block (08/20/2024 1:44 PM CDT) Narrative Obinna Gautam MD - 08/20/2024 1:44 PM CDT Oibnna Gautam MD ? 08/20/2024 ??4:12 PM Epidural catheter Procedure Note Pre-Procedure Staff - ? Anesthesiologist: ??Obinna Gautam MD ? Performed By: anesthesiologist ? Location: OB ? Procedure Start/Stop Times: 08/20/2024 1:44 PM and 08/20/2024 2:01 PM ? Pre-Anesthestic Checklist: patient identified, IV checked, risks and benefits discussed, informed consent, monitors and equipment checked, pre-op evaluation and at physician/surgeon's request Timeout: ? Correct Patient: Yes ? Correct Procedure: Yes ? Correct Site: Yes ? Correct Position: Yes Procedure Documentation Procedure: epidural catheter ? Diagnosis: Labor ? Patient Position: sitting ? Patient Prep/Sterile Barriers: sterile gloves, mask, patient draped ? Skin prep: Chloraprep ? Local skin infiltrated with mL of 1% lidocaine. ? Insertion Site: L3-4. (midline approach). ? Technique: LORT saline ? BJ at 6 cm. ? Needle Type: Touhy needle ? Needle Gauge: 17. ? Needle Length (Inches): 3.5 ? Catheter threaded easily. ? Threaded 12 cm at skin. ? # of attempts: 1 and ??# of redirects: Assessment/Narrative ? Paresthesias: No. ? Test dose of 3 mL lidocaine 1.5% w/ 1:200,000 epinephrine at 13:53 CDT. ? Test dose negative, 3 minutes after injection, for signs of intravascular, subdural, or intrathecal injection. ? Insertion/Infusion Method: LORT saline ? Aspiration negative for Heme or CSF via Epidural Catheter. Medication(s) Administered 0.125% bupivacaine (Epidural) - EPIDURAL 10 mL - 08/20/2024 1:56:00 PM Medication Administration Time: 08/20/2024 1:44 PM FOR [facility] ([facility]) ONLY: ?? Pain Team Contact information: please page the Pain Team Via Get Satisfaction. Search Pain. During daytime hours, please page the attending first. At night please page the resident first. us Obinna Gautam MD [place] ANESTHESIA Final R esult documented in this encounter Visit Diagnoses Not on filedocumented in this encounter Administered Medications Inactive Administered Medications - up to 3 most recent administrations Medication Order MAR Action Action Date Dose Rate Site albumin human 5 % injection Intravenous, CONTINUOUS PRN, Starting on Sun08/20/24 at 1824, Anesthesia Intra-op $New Bag 08/20/2024 6:24 PM CDT azithromycin (ZITHROMAX) 500 mg in NS 250 mL intermittent infusion STAT, 500 mg, Intravenous, PRE-OP/PRE-PROCEDURE, Starting on Sun08/20/24 at 1723, For 1 dose, Give no sooner than 60 minutes prior to incision., Indications: Rupture of Membranes AND/OR Labor prior to , Pre-procedureIndications:Rupture of Membranes AND/OR Labor prior to $Given 08/20/2024 6:00 PM CDT 500 mg BUPivacaine (MARCAINE) 0.125 % injection (diluted from stock concentration by or CUSTOMER EXPERIENCE MANAGER) EPIDURAL, ONCE PRN WITHIN 24 HRS, Starting on Sun08/20/24 at 1356, For 1 dose, Anesthesia Intra-op $Given 08/20/2024 1:56 PM CDT 10 mLs ceFAZolin Sodium (ANCEF) injection 2 g Routine, 2 g, Intravenous, PRE-OP/PRE-PROCEDURE, Starting on Sun08/20/24 at 1723, For 1 dose, Give no sooner than 60 minutes prior to incision., Indications: Perioperative Pharmacoprophylaxis, Pre-procedureIndications:Perioperat macie Pharmacoprophylaxis $Given 08/20/2024 5:59 PM CDT 2 g dexmedeTOMIDine (PRECEDEX) 4 mcg/mL in sodium chloride 0.9 % 100 mL infusion Intravenous, CONTINUOUS PRN, Starting on Sun08/20/24 at 1847, Anesthesia Intra-op $Bolus 08/20/2024 7:11 PM CDT 12 mcg $New Bag 08/20/2024 6:47 PM CDT 12 mcg fentaNYL (PF) (SUBLIMAZE) injection Intravenous, PRN, Administer over 3-5 Minutes, Starting on Sun08/20/24 at 1835, Anesthesia Intra-op $Given 08/20/2024 6:35 PM CDT 100 mcg $Given 08/20/2024 6:26 PM CDT 100 mcg lactated ringers infusion at 100 mL/hr, Intravenous, CONTINUOUS, Pre-operative maintenance fluid., Pre-procedure, Starting on Sun08/20/24 at 1730, Until Sun08/20/24 at 2000 $New Bag 08/20/2024 7:22 PM CDT 100 mL/hr Rate/Dose Change 08/20/2024 5:30 PM CDT 100 mL/ hr Lidocaine-EPINEPHrine (PF) injection EPIDURAL, PRN, Starting on Sun08/20/24 at 1758, Anesthesia Intra-op $Given 08/20/2024 6:56 PM CDT 3 mLs $Given 08/20/2024 6:26 PM CDT 3 mLs $Given 08/20/2024 6:12 PM CDT 2 mLs morphine (PF) (DURAMORPH) injection EPIDURAL, PRN, Administer over 4-5 Minutes, Starting on Sun08/20/24 at 1826, Anesthesia Intra-op $Given 08/20/2024 6:26 PM CDT 1.5 mg ondansetron (ZOFRAN) injection Intravenous, PRN, Administer over 2-5 Minutes, Starting on Sun08/20/24 at 1801, Anesthesia Intra-op $Given 08/20/2024 6:01 PM CDT 4 mg oxytocin (PITOCIN) 30 units in 500 mL 0.9% NaCl infusion Intravenous, CONTINUOUS PRN, Starting on Sun08/20/24 at 1824, Anesthesia Intra-op Rate/Dose Change 08/20/2024 7:07 PM CDT 100 mL/hr 100 mL/hr Rate/Dose Change 08/20/2024 6:36 PM CDT 300 mL/hr 300 mL/ hr $New Bag 08/20/2024 6:24 PM CDT 600 mL/hr 600 mL/hr phenylephrine 0.1 mg/mL infusion (mcg/kg/min) Intravenous, CONTINUOUS PRN, Starting on Sun08/20/24 at 1802, Anesthesia Intra-op Rate/Dose Change 08/20/2024 7:00 PM CDT 0.1 mcg/kg/min 4.38 mL/hr Rate/Dose Change 08/20/2024 6:54 PM CDT 0.2 mcg/kg/min 8.7 6 mL/hr Rate/Dose Change 08/20/2024 6:48 PM CDT 0.3 mcg/kg/min 13. 14 mL/hr documented in this encounter Additional Health Concerns Active Problems Noted Date Diagnosed Date Patient expresses financial resource strain 03/23 documented as of this encounter Care Teams Track Repair Worker Relationship Specialty Start Date End Date Nereida LakeshaFATOU CNM [address] [facility] [place] [address] PCP - General sergeant at arms 07/21/24 No Ref-Primary, Physician 02/28/24 Farrukh Gaspar MD [address], [facility] [address] [place] [address] Physician sergeant at arms 02/28/[address] [facility] [place] [address] Manager Food Beverage Dietitian 03/06/24 Tara Martin, [facility] Lead Community Service Officer Coordinator 04/11/24 Farrukh Gaspar MD [address], [address] [address] Assigned OBGYN Provider 04/13/24 Padmini Calderon DO [address] [address] Physician sergeant at arms 04/22/24 Padmini Calderon DO [address] [address] Assigned OBGYN Provider 07/14/24 documented as of this encounter
--- OUTSIDE RECORDS SUMMARY | 2024-08-29 10:52 | XMS_ITS | Encounter Summary ---
Author Organization [facility] Address [address] [place] [address]. [place] [address] Care Team Providers Care Educational Speech Language Clinician Name Role Phone No Ref-Primary, Physician Unavailable Farrukh Gaspar MD Unavailable Kim Doll RD Unavailable Unavailab Tara Barbosa [facility] Unavailable Farrukh Gaspar MD Unavailable Padmini Calderon DO Unavailable Padmini Calderon DO Unavailable Lakesha Padron APRN [facility] Primary Care Provider [phone] Reason for Visit * Reason Comments Ultrasound BPP- CHTN, DM2 Encounter Details Date Type Department Care Team (Late st Contact Info) Description 08/18/2024 12:15 PM CDT Office Visit [facility] [address] [id number] Jana Osei MD [address] [place] [address] Kim Roach MD [address] [place] [address] Insulin controlled gestational diabetes mellitus (GDM) in third trimester (Primary Dx); Multigravida of advanced maternal age in third trimester; Chronic hypertension in Social History Tobacco Use Types Packs/Day Years [...] you got money to buy more? No 07/22/2024 Within the past 12 months, d id the food you bought just not last and you didn? t have money to get more? No 07/22/2024 Housing Stability Answer Date Recorded Do you have housing? (Farrahin g is defined as stable permanent housing and does not include staying ouside in a car, in a tent, in an abandoned building, in an overnight nursing home, or couch-surfing.) Yes 07/22/2024 Are you worried about losing your housing? No 07/22/2024 Financial Resource Strain Answer Date R ecorded Within the past 12 months, h ave you or your family members you live with been unable to get utilities (heat, electricity) when it was really needed? No 07/22/2024 Transportation Needs Answer Date Record ed Within the past 12 months, h as lack of transportation kept you from medical appointments, getting your medicines, non-medical meetings or appointments, work, or from getting things that you need? No 07/22/2024 Interpersonal Safety Answer Date Record ed Do you feel physically and e motionally safe where you currently live? Yes 07/22/2024 Within the past 12 months, h ave you been hit, slapped, kicked or otherwise physically hurt by someone? No 07/22/2024 Within the past 12 months, h ave you been humiliated or emotionally abused in other ways by your partner or ex-partner? 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 For a detailed report of the ultrasound examination, please see the ultrasound report which can be found under the imaging tab. If you have questions regarding today's evaluation or if we can be of further service, please contact the [facility] Center. Kim Roach MD In Home Tutor, DISTRICT EXTENSION SERVICE AGENT Maternal- Medicine documented in this encounter Nursing Notes * Kim Quintana RN - 08/18/2024 12:15 PM CDT Patient reports positive movement, no pain, no regular contractions, leaking of fluid, or bleeding. Reports blood sugar values controlled with insulin. Patient denies headache, visual changes, nausea/vomiting, epigastric pain related to preeclampsia. Planning for IOL Sunday08/20/24. SBAR given to ABDULAZIZ BHATT, see their note in Epic. documented in this encounter Plan of Treatment Not on file documented as of this encounter Goals Goal Patient Goal Type Associated Problems Recent Progress Patient-Stated? Author Create an action plan to increase financial stability Care Plan Patient expresses financial resource strain No Patt Gautam, PODIATRIC TECHNICIAN Note: Barriers: Lack of housing Strengths: Engaged in care coordination Patient expressed understanding of goal: YES Action steps to achieve this goal: 1. I will review the resources provided by residential care facility manager 2. I will I will contact my care team with questions, concerns, or support needs. 3. I will use the clinic as a resource, and I understand I can contact my clinic with 24/7 after hours services available. Wet Process Operator will remain available as needed. documented as of this encounter Visit Diagnoses Diagnosis Insulin controlled gestational diabetes mellitus (GDM) in third trimester- Primary Multigravida of advanced maternal age in third trimester Chronic hypertension in Benign essential hypertension complicating , childbirth, and the puerperium, unspecified as to episode of care documented in this encounter Additional Health Concerns Active Problems Noted Date Diagnosed Date Patient expresses financial resource strain 03/23 documented as of this encounter Care Teams Educational Speech Language Clinician Relationship Specialty Start Date End Date Lakesha Padron APRN [facility] [address] [place] [address] PCP - General dandy tender 07/21/24 No Ref-Primary, Physician 02/28/24 Farrukh Gaspar MD [address], [address] [address] Physician dandy tender 02/28/[address] [facility] [place] [address] Surgery Technician Dietitian 03/06/24 Tara Martin, [facility] Lead Wet Process Operator 04/11/24 Farrukh Gaspar MD [address], [address] [address] Assigned OBGYN Provider 04/13/24 Padmini Calderon DO [address] [address] Physician dandy tender 04/22/24 Padmini Calderon DO [address] [address] Assigned OBGYN Provider 07/14/24 documented as of this encounter
--- OUTSIDE RECORDS SUMMARY | 2024-08-29 10:52 | XMS_ITS | Encounter Summary ---
Author Organization [facility] Address Pending sale to [facility] [place] [address] Care Team Providers Care Prototype Model Maker Name Role Phone No Ref-Primary, Physician Unavailable [phone] Farrukh Gaspar MD Unavailable Kim Doll RD Unavailable Unavailab Tara Barbosa [facility] Unavailable Farrukh Gaspar MD Unavailable Padmini Calderon DO Unavailable Padmini Calderon DO Unavailable Esther Laurent APRN [facility] Primary Care Provider [phone] Reason for Referral * Diagnostic Imaging Ultrasound (Routine) - Pending Review Specialty Diagnoses / Procedures Referred By Contac t Referred To Contact Radiology. Diagnoses Chronic hypertension in with type 2 diabetes mellitus in third trimester Polyhydramnios affecting in third trimester Procedures MFM BPP Single Ilene Alegria MD [address] [place] [address] Phone: tel: fax: Referral ID Status Reason Start Date Expiration Date V isits Requested Visits Authorized [id number] Pending Review 08/14/2024 08/14/2025 1 1 Reason for Visit * Diagnostic Imaging Ultrasound (Routine) - Pending Review Specialty Diagnoses / Procedures Referred By Contac t Referred To Contact Radiology. Diagnoses Chronic hypertension in with type 2 diabetes mellitus in third trimester Polyhydramnios affecting in third trimester Procedures MFM BPP Single Ilene Alegria MD [address] [place] [address] Phone: tel: fax: Referral ID Status Reason Start Date Expiration Date V isits Requested Visits Authorized [id number] Pending Review 08/14/2024 08/14/2025 1 1 Encounter Details Date Type Department Care Team (Latest Contact Info) Description 08/18/2024 11:34 AM CDT - 08/18/2024 11:59 PM CDT Hospital Encounter [facility] [address] [id number] Jana Osei MD [address] [place] [address] Kim Roach MD [address] [place] [address] Chronic hypertension in ; with type 2 diabetes mellitus in third trimester; Polyhydramnios affecting in third trimester Discharge Disposition: Home or Self Care Social History Tobacco Use Types [...] Answer Date Recorded Do you have housing? 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 50 strip 6 02/29/2024 blood glucose (NO BRAND SPECIFIED) lancets standardIndicatio ns:Gestational diabetes Test 4 times per day. 200 each 11 02/29/2024 blood glucose monitoring (NO BRAND SPECIFIED) meter device kitIndications:Ge stational diabetes Use to test blood sugar 4 times daily or as directed. 1 kit 1 02/29/2024 Glucose Blood (BLOOD GLUCOSE TEST STRIPS) STRPIndications:G estational diabetes 1 strip 4 times daily 150 strip 11 02/29/2024 insulin pen needle (32G X 4 MM) 32G X 4 MM miscellaneousIndi cations:Insulin controlled gestational diabetes mellitus (GDM) in second trimester Use 4 pen needles daily or as directed. 200 each 3 04/02/2024 Misc. Devices (BREAST PUMP) MISCIndications:B reastfeeding problem in 1 each daily as needed 1 each 05/14/2024 acetaminophen (TYLENOL) 325 MG tablet Take 325-650 mg by mouth every 6 hours as needed for mild pain. 4 aspirin 81 MG EC tablet Take 81 mg by mouth daily 4 clindamycin (CLEOCIN) 2 % vaginal cream Place vaginally at bedtime. 4 insulin aspart (NOVOLOG FLEXPEN) 100 UNIT/ML penIndications:In sulin controlled gestational diabetes mellitus (GDM) in second trimester Take 6 units with breakfast, may titrate up to 50 units daily 15 mL 3 04/02/2024 4 insulin detemir (LEVEMIR PEN) 100 UNIT/ML penIndications:In sulin controlled gestational diabetes mellitus (GDM) in second trimester Take at Bedtime as directed, Max of 60 units daily 30 mL 2 04/16/2024 4 labetalol (NORMODYNE) 300 MG tabletIndications :Hypertension Take 400 mg by mouth 2 times daily. 07/31/2024 4 metFORMIN (GLUCOPHAGE) 500 MG tabletIndications :Insulin controlled gestational diabetes mellitus (GDM) in second trimester Take 1 tablet (500 mg) by mouth 2 times daily (with meals) 60 tablet 3 04/08/2024 4 omeprazole (PRILOSEC) [address] capsuleIndication s:Heartburn during in second trimester Take 1 capsule (10 mg) by mouth daily 60 capsule 2 2024 4 documented as of this encounter Plan of Treatment Not on file documented as of this encounter Goals Goal Patient Goal Type Associated Problems Recent Progress Patient-Stated? Author Create an action plan to increase financial stability Care Plan Patient expresses financial resource strain Patt Young, CHICKEN SEXER Note: Barriers: Lack of housing Strengths: Engaged in care coordination Patient expressed understanding of goal: YES Action steps to achieve this goal: 1. I will review the resources provided by respiratory care faculty 2. I will I will contact my care team with questions, concerns, or support needs. 3. I will use the clinic as a resource, and I understand I can contact my clinic with 24/7 after hours services available. Nutrition Assistant will remain available as needed. documented as of this encounter Procedures Procedure Name Priority Date/Time Associated Diagnosis Comments [facility] BPP SINGLE Routine 08/18/2024 12:22 PM CDT Chronic hypertension in with type 2 diabetes mellitus in third trimester Polyhydramnios affecting in third trimester documented in this encounter Results * [facility] BPP Single (08/18/2024 12:22 PM CDT) Anatomical Region Laterality Modality Ultrasound 08/18/2024 11:5 6 AM CDT Impressions 08/18/2024 1:12 PM CDT IMPRESSION ----- 1. Mcmahan intrauterine at 36w 5d gestational age here for testing. 2. The fetus is in cephalic presentation. The amniotic fluid volume is normal. 3. The BPP is 8/8. Narrative 08/18/2024 1:12 PM CDT ?BPP ----- Pat. Name: ROLA MCKEON ? Study Date: ??08/18/2024 11:56am Pat. NO: ??[id number] ?Referring ??MD: ESTHER LAURENT Site: ? Center Specialists: Nathalie Harman RDMS : ??1990 ?Age: ?? 34 ----- INDICATION ----- Chronic hypertension - on Labetalol Type 2 diabetes - on insulin History of PPROM at 36 weeks Echogenic bowel seen on prior exam AMA METHOD ----- Transabdominal ultrasound examination. View: Sufficient ----- Mcmahan . Number of fetuses: 1 DATING ----- ? Date ?Details ?Gest. age ?CARLOS LMP ?11/28/2023 ? 37 w + 5 d ? 09/03/2024 Previous U/S ?01/25/2024 ?GA, GA 7 w + 2 d ? 36 w + 5 d ? 09/10/2024 Assigned dating ?based on ultrasound (GA), selected on 08/07/2024 ?36 w + 5 d ? 09/10/2024 GENERAL EVALUATION ----- Cardiac activity present. FHR 138 bpm. movements: visualized. Presentation: cephalic Placenta: Anterior Umbilical cord: previously studied AMNIOTIC FLUID ASSESSMENT ----- Amount of AF: normal MVP 6.6 cm BIOPHYSICAL PROFILE ----- 2: breathing movements 2: Gross body movements 2: tone 2: Amniotic fluid volume 8/8 Biophysical profile score Interpretation: normal RECOMMENDATION ----- Thank-you for referring your patient for surveillance. She has delivery scheduled on 08/20/24 at 37w0d for comorbidities. Return to primary provider for continued care. If you have questions regarding today's evaluation or if we can be of further service, please contact the [facility] Center. anomalies may be present but not detected Procedure Note Kim Roach MD - 08/18/2024 BPP ----- Pat. Name: ROLA MCKEON Study Date: 08/18/2024 11:56am Pat. NO: [id number] Referring MD: ESTHER LAURENT Site: Center Specialists: Nathalie Harman RDMS : 1990 Age: 34 ----- INDICATION ----- Chronic hypertension - on Labetalol Type 2 diabetes - on insulin History of PPROM at 36 weeks Echogenic bowel seen on prior exam AMA METHOD ----- Transabdominal ultrasound examination. View: Sufficient ----- Mcmahan . Number of fetuses: 1 DATING ----- DateDetailsGest. age CARLOS LMP w + 5 d 09/03/2024 Previous U/S 01/25/2024 GA, GA7 w + 2 d36 w + 5 d 09/10/2024 Assigned dating based on ultrasound (GA), selected on08/07/2024 36w + 5 d 09/10/2024 GENERAL EVALUATION ----- Cardiac activity present. FHR 138 bpm. movements: visualized.Presentation: cephalic Placenta: Anterior Umbilical cord: previously studied AMNIOTIC FLUID ASSESSMENT ----- Amount of AF: normal MVP 6.6 cm BIOPHYSICAL PROFILE ----- 2: breathing movements 2: Gross body movements 2: tone 2: Amniotic fluid volume 8/8 Biophysical profile score Interpretation: normal RECOMMENDATION ----- Thank-you for referring your patient for surveillance. She has delivery scheduled on 08/20/24 at 37w0d for comorbidities. Return to primary provider for continued care. If you have questions regarding today's evaluation or if we can be offurther service, please contact the [facility] Center. anomalies may be present but not detected IMPRESSION ----- 1. Mcmahan intrauterine at 36w 5d gestational age here forantenatal testing. 2. The fetus is in cephalic presentation. The amniotic fluid volume isnormal. 3. The BPP is 8/8. us Ilene [facility] ORDERABLES Vikki Re tyreet - Final documented in this encounter Visit Diagnoses Diagnosis Chronic hypertension in Benign essential hypertension complicating , childbirth, and the puerperium, unspecified as to episode of care with type 2 diabetes mellitus in third trimester Polyhydramnios affecting in third trimester documented in this encounter Additional Health Concerns Active Problems Noted Date Diagnosed Date Patient expresses financial resource strain 03/23 documented as of this encounter Care Teams Prototype Model Maker Relationship Specialty Start Date End Date Esther Laurent APRN [facility] [address] [place] [address] PCP - General technical services manager 07/21/24 No Ref-Primary, Physician 02/28/24 Farrukh Gaspar MD [address], [address] [address] Physician technical services manager 02/28/[address] [place] [address] Hydroelectric Systems Technician Dietitian 03/06/24 Tara Martin, [facility] Lead Nutrition Assistant 04/11/24 Farrukh Gaspar MD [address], [address] [address] Assigned OBGYN Provider 04/13/24 Padmini Calderon DO [address] [address] Physician technical services manager 04/22/24 Padmini Calderon DO [address] [address] Assigned OBGYN Provider 07/14/24 documented as of this encounter
--- OUTSIDE RECORDS SUMMARY | 2024-08-29 10:52 | XMS_ITS | Encounter Summary ---
Author Organization [facility] Address [address] [place] [address] Care Team Providers Care Blanket Inspector Name Role Phone No Ref-Primary, Physician Unavailable [phone] Farrukh Gaspar MD Unavailable [phone] Unavailable Unavailab Tara Barbosa Unavailable [phone] Farrukh Gaspar MD Unavailable Padmini Calderon DO Unavailable Padmini Calderon DO Unavailable Lakesha Padron APRN [facility] Primary Care Provider [phone] Encounter Details Date Type Department Care Team (Latest Contact Info) Description 08/20/2024 Travel Social History Tobacco Use Types Packs/Day [...] in an abandoned building, in an overnight long term, or couch-surfing.) Yes 08/20/2024 Are you worried [...] on file 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 Author Create an action plan to increase financial stability Care Plan Patient expresses financial resource strain No Patt Gautam, [facility] Note: Barriers: Lack of housing Strengths: Engaged in care coordination Patient expressed understanding of goal: YES Action steps to achieve this goal: 1. I will review the resources provided by childbirth and infant care teacher 2. I will I will contact my care team with questions, concerns, or support needs. 3. I will use the clinic as a resource, and I understand I can contact my clinic with 24/7 after hours services available. Knitting Machine Operator Helper will remain available as needed. documented as of this encounter Visit Diagnoses Not on filedocumented in this encounter Additional Health Concerns Active Problems Noted Date Diagnosed Date Patient expresses financial resource strain 03/23 documented as of this encounter Care Teams Blanket Inspector Relationship Specialty Start Date End Date Lakesha Padron APRN [facility] [address] [place] [address] PCP - General helicopter mechanic 07/21/24 No Ref-Primary, Physician 02/28/24 Farrukh Gaspar MD [address], [address] [address] Physician helicopter mechanic 02/28/[address] [place] [address] Health Educator Dietitian 03/06/24 Tara Martin, [facility] Lead Knitting Machine Operator Helper 04/11/24 Farrukh Gaspar MD [address], [address] [address] Assigned OBGYN Provider 04/13/24 Padmini Calderon DO [address] [address] Physician helicopter mechanic 04/22/24 Padmini Calderon DO [address] [address] Assigned OBGYN Provider 07/14/24 documented as of this encounter
--- OUTSIDE RECORDS SUMMARY | 2024-08-29 10:52 | XMS_ITS | Clinical Summary ---
Author Organization [facility] Address [address] [place] [id number] Care Team Providers Care Dried Yeast Supervisor Name Role Phone No Ref-Primary, Physician Unavailable [phone] Farrukh Gaspar MD Unavailable [phone] Unavailable Unavailab Tara BarbosaSW Unavailable Farrukh Gaspar MD Unavailable Padmini Calderon DO Unavailable Padmini Calderon DO Unavailable Esther Laurent APRN [facility] Primary Care Provider [phone] Allergies Active Allergy Reactions Criticality Noted Date Comments Grass Pollen(K-O-R-T-Swt Eyal) Itching,Difficulty breathing High 04/17/2022 [place] pollens Medications blood glucose monitoring (NO BRAND SPECIFIED) meter device kitIndications: Gestational diabetes Use to test blood sugar 4 times daily or as directed. 1 kit 1 02/29/20 24 Active Glucose Blood (BLOOD GLUCOSE TEST STRIPS) STRPIndications :Gestational diabetes 1 strip 4 times daily 150 strip 11 02/29/20 24 Active blood glucose (NO BRAND SPECIFIED) lancets standardIndicat ions:Gestationa l diabetes Test 4 times per day. 200 each 02/29/20 24 Active acetone urine (KETOSTIX) test stripIndication s:Gestational diabetes 1 strip daily Use one strip daily for 1 week then weekly if negative. 50 strip 6 02/29/20 24 Active insulin pen needle (32G X 4 MM) 32G X 4 MM miscellaneousIn dications:Insul in controlled gestational diabetes mellitus (GDM) in second trimester Use 4 pen needles daily or as directed. 200 each 3 04/02/20 24 Active Misc. Devices (BREAST PUMP) MISCIndications : problem in 1 each daily as needed 1 each 05/14/20 24 Active senna-docusate (SENOKOT-S/NELIDA COLACE) 8.6-50 MG tabletIndicatio ns:S/P section Take 1 tablet by mouth 2 times daily as needed for constipation . 30 tablet 08/22/20 24 Active oxyCODONE (ROXICODONE) 5 MG tabletIndicatio ns:S/P section,Uterine rupture during labor Take 1 tablet (5 mg) by mouth every 4 hours as needed for moderate to severe pain. 12 tablet 08/22/20 24 Active labetalol (NORMODYNE) 300 MG tabletIndicatio ns:Chronic hypertension affecting Take 1 tablet (300 mg) by mouth every 12 hours. 14 tablet 1 08/24/20 24 Active ibuprofen (ADVIL/MOTRIN) 800 MG tabletIndicatio ns:S/P section,Uterine rupture during labor Take 1 tablet (800 mg) by mouth every 8 hours as needed for moderate pain. 100 tablet 1 08/24/20 24 Active ferrous sulfate (FEROSUL) 325 (65 Fe) MG tabletIndicatio ns:Uterine rupture during labor Take 1 tablet (325 mg) by mouth daily (with breakfast). 90 tablet 08/24/20 24 Active acetaminophen (TYLENOL) 325 MG tabletIndicatio ns:S/P section Take 3 tablets (975 mg) by mouth every 6 hours as needed for mild pain. 200 tablet 1 08/24/20 24 Active aspirin 81 MG EC tablet Take 81 mg by mouth daily 024 Discontinued(St op at Discharge) insulin aspart (NOVOLOG FLEXPEN) 100 UNIT/ML penIndications: Insulin controlled gestational diabetes mellitus (GDM) in second trimester Take 6 units with breakfast, may titrate up to 50 units daily 15 mL 3 04/02/20 24 024 Discontinued(St op at Discharge) metFORMIN (GLUCOPHAGE) 500 MG tabletIndicatio ns:Insulin controlled gestational diabetes mellitus (GDM) in second trimester Take 1 tablet (500 mg) by mouth 2 times daily (with meals) 60 tablet 3 04/08/20 24 024 Discontinued(St op at Discharge) omeprazole (PRILOSEC) [address] capsuleIndicati ons:Heartburn during in second trimester Take 1 capsule (10 mg) by mouth daily 60 capsule 2 04/10/20 24 024 Discontinued(St op at Discharge) insulin detemir (LEVEMIR PEN) 100 UNIT/ML penIndications: Insulin controlled gestational diabetes mellitus (GDM) in second trimester Take at Bedtime as directed, Max of 60 units daily 30 mL 2 04/16/20 24 024 Discontinued(St op at Discharge) labetalol (NORMODYNE) 100 MG tablet Take 300 mg by mouth 2 times daily. 07/17/20 24 024 Discontinued(Me d Rec(No AVS / No eCancel)) acetaminophen (TYLENOL) 325 MG tablet Take 325-650 mg by mouth every 6 hours as needed for mild pain. Discontinued labetalol (NORMODYNE) 300 MG tabletIndicatio ns:Hypertension Take 400 mg by mouth 2 times daily. 07/31/20 24 024 Discontinued(St op at Discharge) labetalol (NORMODYNE) 200 MG tablet Take 300 mg by mouth 2 times daily. 08/07/20 24 024 Discontinued(Me d Rec(No AVS / No eCancel)) clindamycin (CLEOCIN) 2 % vaginal cream Place vaginally at bedtime. 024 Discontinued(Me d Rec(No AVS / No eCancel)) acetaminophen (TYLENOL) 325 MG tabletIndicatio ns:S/P section,Uterine rupture during labor Take 3 tablets (975 mg) by mouth every 6 hours as needed for mild pain. 08/22/20 24 024 Discontinued(St op at Discharge) ibuprofen (ADVIL/MOTRIN) 800 MG tabletIndicatio ns:S/P section,Uterine rupture during labor Take 1 tablet (800 mg) by mouth every 6 hours. 08/22/20 024 Discontinued ferrous sulfate (FEROSUL) 325 (65 Fe) MG tabletIndicatio ns:Uterine rupture during labor Take 1 tablet (325 mg) by mouth daily (with breakfast). 90 tablet 08/22/20 024 Discontinued Active Problems Problem Noted Date Diagnosed Date Uterine rupture during labor 08/22/2024 S/P section 08/22/2024 Chronic hypertension affecting 024 RUQ pain 07/21/2024 Previous delivery, antepartum condition or complication 05/14/2024 Hx of preeclampsia, prior , currently p regnant 05/14/2024 Insulin controlled gestation al diabetes mellitus (GDM) in third trimester 04/16/2024 Asthma 03/12/2024 Gastroesophageal reflux 03/12/2024 Migraine 03/12/2024 Murmur 11/29/2022 Rhinitis, allergic 01/11/2021 Vitamin D deficiency 06/22/2012 Overview (05/29/2024): Overview: 28.3 28.3 Resolved Problems Problem Noted Date Diagnosed Date Resolved Date 08/09/2024 08/22/2024 Encounter for triage in patient 05/28/2024 08/22/2024 History of delivery, currently 05/14/2024 08/22/2024 Hypertension, essential, com plicating 05/14/2024 08/22/2024 Gestational hypertension 03/12/2024 Supervision of wit h other poor reproductive or obstetric history, second trimester 03/12/2024 08/22/2024 Gestational hypertension, antepartum 11/29/2022 08/22/2024 Pre-eclampsia 11/29/2022 08/22/2024 Cervicalgia 11/13/2014 03/05/2015 Shoulder joint pain 11/13/2014 03/05/20 15 Gestational diabetes 09/21/2012 024 Overview (05/29/2024): Diet-controlled Encounters Date Type Department Care Team Description 08/20/2024 1:44 PM CDT Anesthesia Event [address] [phone] Alexander Mina MD Johnson, Christopher S, MD 08/20/2024 Travel 08/18/2024 12:15 PM CDT Office Visit [facility] [address] [phone] Jana Osei MD Hoover, Elizabeth, MD Insulin controlled gestational diabetes mellitus (GDM) in third trimester (Primary Dx); Multigravida of advanced maternal age in third trimester; Chronic hypertension in 08/18/2024 11:34 AM CDT - 08/18/2024 11:59 PM CDT Hospital Encounter [facility] [address] [phone] Jana Osei MD Hoover, Elizabeth, MD Chronic hypertension in ; with type 2 diabetes mellitus in third trimester; Polyhydramnios affecting in third trimester Discharge Disposition: Home or Self Care 08/18/2024 Travel 08/14/2024 12:11 PM CDT - 08/14/2024 1:56 PM CDT Hospital Encounter [address] [phone] Pura Eaton APRN CNM Insulin controlled gestational diabetes mellitus (GDM) in third trimester (Primary Dx) Discharge Disposition: Home or Self Care 08/14/2024 8:30 AM CDT Office Visit [facility] [address] [phone] Alyce Whitlock MD Sabol, Bethany, MD Chronic hypertension in (Primary Dx); with type 2 diabetes mellitus in third trimester; Polyhydramnios affecting in third trimester 08/14/2024 8:00 AM CDT - 08/14/2024 12:10 PM CDT Hospital Encounter [facility] [place] [address] [place] [phone] Alyce Whitlock MD Sabol, Bethany, MD with type 2 diabetes mellitus in second trimester Discharge Disposition: Home or Self Care 08/14/2024 Travel 08/09/2024 10:19 PM CDT - 08/10/2024 12:39 AM CDT Hospital Encounter [address] [phone] Venus Valladares CNM Discharge Disposition: Home or Self Care 08/09/2024 Travel 08/07/2024 3:30 PM CDT Office Visit [facility] [place] [address] [place] [address] Alyce Whitlock MD with type 2 diabetes mellitus in third trimester (Primary Dx); Chronic hypertension in 08/07/2024 3:00 PM CDT - 08/07/2024 11:59 PM CDT Hospital Encounter [facility] [place] [address] [place] [phone] Alyce Whitlock MD with type 2 diabetes mellitus in second trimester Discharge Disposition: Home or Self Care 08/07/2024 Travel 08/06/2024 2:30 PM CDT Virtual Visit [address] [phone] Teagan Mark NP Insulin controlled gestational diabetes mellitus (GDM) in third trimester (Primary Dx) 08/04/2024 4:00 PM CDT Office Visit [facility] [address] [address] [place] [phone] Mohini Whitlock MD Contag, Stephen A, MD with type 2 diabetes mellitus in third trimester (Primary Dx); Chronic hypertension in ; Polyhydramnios affecting in third trimester 08/04/2024 3:30 PM CDT - 08/04/2024 11:59 PM CDT Hospital Encounter [facility] [address] [place] [phone] Mohini Whitlock MD Contag, Stephen A, MD with type 2 diabetes mellitus in second trimester Discharge Disposition: Home or Self Care 08/04/2024 Travel 07/31/2024 3:30 PM CDT Office Visit [facility] [place] [address] [place] [phone] Dacia Alvarez MD with type 2 diabetes mellitus in third trimester (Primary Dx) 07/31/2024 3:00 PM CDT - 07/31/2024 11:59 PM CDT Hospital Encounter [facility] [address] [place] [phone] Dacia Alvarez MD with type 2 diabetes mellitus in third trimester Discharge Disposition: Home or Self Care 07/31/2024 Travel 07/31/2024 My[facility] Medical Advice [address] [phone] Teagan Mark NP 07/28/[address] [facility] [address] [place] [phone] Nasreen Dumont RN with type 2 diabetes mellitus in third trimester (Primary Dx) 07/24/2024 3:30 PM CDT Office Visit [facility] [address] [place] [phone] Dacia Alvarez MD with type 2 diabetes mellitus in third trimester (Primary Dx) 07/24/2024 3:00 PM CDT - 07/24/2024 11:59 PM CDT Hospital Encounter [facility] [place] [address] [place] [phone] Dacia Alvarez MD with type 2 diabetes mellitus in second trimester Discharge Disposition: Home or Self Care 07/24/2024 Travel 07/23/2024 11:30 AM CDT Virtual Visit [address] [place] [address] Teagan Mark NP Insulin controlled gestational diabetes mellitus (GDM) in second trimester 07/23/2024 [facility] Medical Advice [address] [place] [address] Jus Peter MA 07/23/2024 MyC Medical Advice [facility] [address] [facility] [address] [place] [address] Jus Peter MA 07/21/2024 7:46 PM CDT - 07/22/2024 12:37 PM CDT Hospital Encounter [address] [phone] Esther Laurent APRN CN Discharge Disposition: Left Against Medical Advice 07/21/2024 4:00 PM CDT Office Visit [facility] [address] [phone] Dacia Alvarez MD with type 2 diabetes mellitus in third trimester (Primary Dx) 07/21/2024 3:30 PM CDT - 07/21/2024 7:45 PM CDT Hospital Encounter [facility] [address] [phone] Dacia Alvarez MD with type 2 diabetes mellitus in second trimester Discharge Disposition: Home or Self Care 07/21/2024 Travel 07/19/2024 5:54 PM CDT - 07/19/2024 9:45 PM CDT Hospital Encounter [facility] [address] [place] [address] Isabelle Tariq MD Bayer, Chelsea, MD Discharge Disposition: Home or Self Care 07/19/2024 Telephone [facility] [address] [place] [phone] Oliva Pinzon MD 07/17/2024 9:15 AM CDT Office Visit [facility] [place] [address] [place] [phone] Alyce Whitlock MD Insulin controlled gestational diabetes mellitus (GDM) in third trimester (Primary Dx); Chronic hypertension in 07/17/2024 8:33 AM CDT - 07/17/2024 11:59 PM CDT Hospital Encounter [facility] [place] [address] [place] [phone] Alyce Whitlock MD Chronic hypertension in Discharge Disposition: Home or Self Care 07/17/2024 Travel 07/10/2024 3:30 PM CDT Office Visit [facility] [place] [address] [place] [phone] Dacia Alvarez MD with type 2 diabetes mellitus in third trimester (Primary Dx) 07/10/2024 3:00 PM CDT - 07/10/2024 11:59 PM CDT Hospital Encounter [facility] [place] [address] [place] [phone] Dacia Alvarez MD with type 2 diabetes mellitus in second trimester; Polyhydramnios affecting Discharge Disposition: Home or Self Care 07/10/2024 Travel 07/09/2024 2:30 PM CDT Virtual Visit [address] [place] [phone] Teagan Mark NP Insulin controlled gestational diabetes mellitus (GDM) in third trimester (Primary Dx) 07/09/2024 MyC Medical Advice [facility] [address] [facility] [address] [place] [phone] Jus Peter, AAKASH 07/04/2024 4:00 PM CDT Office Visit [facility] [place] [address] [place] [phone] Jana Osei MD Insulin controlled gestational diabetes mellitus (GDM) in third trimester (Primary Dx) 07/04/2024 3:22 PM CDT - 07/04/2024 11:59 PM CDT Hospital Encounter [facility] [place] [address] [place] [phone] Jana Osei MD with type 2 diabetes mellitus in second trimester; Polyhydramnios affecting Discharge Disposition: Home or Self Care 07/04/2024 Travel 06/25/2024 4:00 PM CDT Office Visit [facility] [place] [address] [place] [phone] Giselle Diallo MD Nashif, Sereen, MD with type 2 diabetes mellitus in third trimester (Primary Dx); with type 2 diabetes mellitus in second trimester 06/25/2024 3:25 PM CDT - 06/25/2024 11:59 PM CDT Hospital Encounter [facility] [address] [place] [phone] Giselle Diallo MD with type 2 diabetes mellitus in second trimester; Polyhydramnios affecting Discharge Disposition: Home or Self Care 06/25/2024 11:30 AM CDT Virtual Visit [address] [phone] Teagan Mark NP Insulin controlled gestational diabetes mellitus (GDM) in second trimester (Primary Dx) 06/25/2024 Travel 06/25/2024 MyC Medical Advice [address] [phone] Jus Peter MA 06/25/2024 MyC Medical Advice [address] [place] [address] Jus Peter MA 06/20/2024 8:30 AM CDT Office Visit [facility] [address] [place] [phone] Alyce Whitlock MD with type 2 diabetes mellitus in second trimester (Primary Dx); Polyhydramnios affecting 06/20/2024 7:54 AM CDT - 06/20/2024 11:59 PM CDT Hospital Encounter [facility] [place] [address] [place] [phone] Alyce Whitlock MD Chronic hypertension in Discharge Disposition: Home or Self Care 06/20/2024 Travel 06/15/2024 Travel 06/13/2024 9:15 AM CDT Office Visit [facility] [address] [place] [phone] Padmini Calderon DO Supervision of high-risk of elderly multigravida (Primary Dx) 06/13/2024 Travel 06/11/2024 11:30 AM CDT Virtual Visit [place] [phone] [facility] [address] [place] [address] Teagan Mark NP Insulin controlled gestational diabetes mellitus (GDM) in second trimester (Primary Dx) 06/09/2024 MyC Medical Advice [facility] [address] [facility] [address] [place] [address] Teagan Mark NP 06/08/2024 Travel from Last 3 Months Immunizations Name Administration Dates Next Due COVID-19 MONOVALENT 12+ (Pfizer) 06/18/2021,04/22 Dtap, 5 Pertussis Antigens (DAPTACEL) ,08/05/1991,03/18/1991,1988,1989,1989 Flu, Unspecified 09/08/2003 HepB, Unspecified 02/22/2001,12/07/2000,10/03/20 00 Influenza (IIV3) PF 07/10/2012 Influenza Vaccine >6 months,quad, PF 12/16/2020 MMR 12/07/2000 Poliovirus, inactivated (IPV) 02/03/1992 ,03/18/1991,1989,1988,1989 TDAP (Adacel,Boostrix) 06/13/2024,06/02/2022, Td (Adult), Adsorbed 10/03/2000 Family History Medical History Relation Comments Heart block Father Hypertension Father Pancreatic Cancer Maternal Grandmother Hypertension Mother Thyroid Disease Mother Relation Status Comments Brother Alive Father Alive Maternal Grandfather Alive Maternal Grandmother Mother Alive Paternal Grandfather Paternal Grandmother Sister 1 Alive Sister 2 Alive Sister 3 Alive Social History Tobacco Use Types Packs/Day Years Used Date Smoking Tobacco: Never Smokeless Tobacco: Never Tobacco Cessation:Counseling Given: Not Answered Alcohol Use Standard Drinks/Week Comments Never 0 (1 standard drink = 0.6 oz pur e alcohol) PHQ-2 Answer Date Recorded PHQ-2 Score 1 06/13/2024 [place] Depression Scale Answer Date Recorded Last EPDS Total Score Not on file 08/23/2024 The thought of harming myself has occurred to me . Never 08/23/2024 Adolescent Education Answer Date Record ed Getting [...] in an abandoned building, in an overnight longterm, or couch-surfing.) Yes 08/20/2024 Are you worried [...] on file Legal Sex Female 5:03 AM PUBLIC RELATIONS WRITER Gender Identity Not on file Sexual Orientation Not on file Last Filed Vital Signs Vital Sign Reading Time Taken Comments Blood Pressure 142/65 08/24/2024 9:00 AM PUBLIC RELATIONS WRITER Pulse 72 08/24/2024 8:00 AM PUBLIC RELATIONS WRITER Temperature 36.9 ??C (98.5 ??F) 08/24/2024 8:00 AM CS T Respiratory Rate 16 08/24/2024 8:00 AM PUBLIC RELATIONS WRITER Oxygen Saturation 97% 08/24/2024 8:00 AM PUBLIC RELATIONS WRITER Inhaled Oxygen Concentration - - Weight 73 kg (161 lb) 08/09/2024 10:30 PM CDT Height 152.4 cm (5') 08/09/2024 10:30 PM CDT Body Mass Index 31.44 08/09/2024 10:30 PM CDT Plan of Treatment Health Maintenance Due Date Last Done Comments ADVANCE CARE PLANNING 1989 ANNUAL REVIEW OF HM ORDERS 1989 ASTHMA ACTION PLAN 1989 ASTHMA CONTROL TEST 1989 DIABETIC FOOT EXAM 1989 EYE EXAM 1989 LIPID 1989 MICROALBUMIN 1989 YEARLY PREVENTIVE VISIT 1989 Pneumococcal Vaccine: Pediatrics (0 to 5 Years) and At-Risk Patients (6 to 64 Years) (1 of 2 - PCV) 1995 COVID-19 Vaccine ( - season) 2024 06/18/2021, 05/18/2021 INFLUENZA VACCINE (#1) 2024 , 07/10/2012, 09/08/2003 A1C 11/20/2024 08/20/2024, 06/24, 02/20/2024 PAP 11/24/2024 11/24/2021, 09/23/2015 BMP 08/20/2025 08/20/2024, 07/23, 07/22/2024, Additional history exists DTAP/TDAP/TD IMMUNIZATION (9 - Td or Tdap) 06/13/2034 06/13/2024, 06/02/2022, 09/03/2012, Additional history exists RSV VACCINE (1 - 1-dose 75+ series) 2064 HEPATITIS B IMMUNIZATION Completed 001, 12/07/2000, 10/03/2000 HEPATITIS C SCREENING Completed 01/25/2024 HIV SCREENING Completed 01/25/2024 PHQ-2 (once per calendar year) Completed 06/13/2024, 2024 HPV IMMUNIZATION Aged Out No longer e ligible based on patient's age to complete this topic MENINGITIS IMMUNIZATION Aged Out No l onger eligible based on patient's age to complete this topic RSV MONOCLONAL ANTIBODY Aged Out No l onger eligible based on patient's age to complete this topic Goals Goal Patient Goal Type Associated Problems Recent Progress Patient-Stated? Author Create an action plan to increase financial stability Care Plan Patient expresses financial resource strain No Patt Gautam, [facility] Note: Barriers: Lack of housing Strengths: Engaged in care coordination Patient expressed understanding of goal: YES Action steps to achieve this goal: 1. I will review the resources provided by vision care associate 2. I will I will contact my care team with questions, concerns, or support needs. 3. I will use the clinic as a resource, and I understand I can contact my clinic with 24/7 after hours services available. User Interface Designer will remain available as needed. Procedures Procedure Name Priority Date/Time Associated Diagnosis Comments HEMOGLOBIN Routine 08/22/2024 10:12 AM CDT HEMOGLOBIN STAT 08/21/2024 3:15 PM CDT HEMOGLOBIN Timed 08/21/2024 10:06 AM CDT HEMOGLOBIN Timed 08/21/2024 6:05 AM CDT CTA ABDOMEN PELVIS WITH CONTRAST STAT 08/21/2024 3:12 AM CDT HEMOGLOBIN Timed 08/21/2024 1:48 AM CDT HEMOGLOBIN Timed 08/20/2024 8:40 PM CDT SECTION, WITH BILATERAL SALPINGECTOMY 08/20/2024 5:57 PM CDT 41 weeks gestation of ANE EPIDURAL BLOCK Routine 08/20/2024 1: 44 PM CDT GLUCOSE BY METER Routine 08/20/2024 11:2 8 AM CDT URINE DRUG SCREEN STAT Add-on 08/20/2024 10: 02 AM CDT URINE DRUG SCREEN PANEL STAT Add-on 08/20/2024 10:02 AM CDT PROTEIN RANDOM URINE STAT 08/20/2024 10:02 AM CDT ROUTINE UA WITH MICROSCOPIC REFLEX TO CULTURE Routine 08/20/2024 10:02 AM CDT HEMOGLOBIN A1C Routine 08/20/2024 9:14 AM CDT COMPREHENSIVE METABOLIC PANEL STAT 08/20/2024 9:13 AM CDT CBC WITH PLATELETS STAT 08/20/2024 9: 13 AM CDT ABO/RH TYPE AND SCREEN STAT 08/20/2024 9:11 AM CDT TYPE AND SCREEN, ADULT STAT 08/20/2024 9:11 AM CDT TREPONEMA ABS W REFLEX TO RPR AND TITER STAT 08/20/2024 9:11 AM CDT GLUCOSE BY METER POCT Routine 08/20/2024 [facility] BPP SINGLE Routine 08/18/2024 12:22 PM CDT Chronic hypertension in with type 2 diabetes mellitus in third trimester Polyhydramnios affecting in third trimester PROTEIN RANDOM URINE STAT 08/14/2024 12:57 PM CDT COMPREHENSIVE METABOLIC PANEL STAT 08/14/2024 12:38 PM CDT CBC WITH PLATELETS STAT 08/14/2024 12 :38 PM CDT [facility] US COMPREHENSIVE SINGLE F/U Routine 08/14/2024 8:43 AM CDT with type 2 diabetes mellitus in second trimester WET PREPARATION Routine 08/09/2024 11:36 PM CDT ROUTINE UA WITH MICROSCOPIC REFLEX TO CULTURE Routine 08/09/2024 11:36 PM CDT RUPTURE OF MEMBRANES BY ROM PLUS STAT 08/09/2024 10:46 PM CDT [facility] BPP SINGLE Routine 08/07/2024 3:33 PM CDT with type 2 diabetes mellitus in second trimester [facility] BPP SINGLE Routine 08/04/2024 3:57 PM CDT with type 2 diabetes mellitus in second trimester [facility] BPP SINGLE Routine 07/31/2024 3:27 PM CDT with type 2 diabetes mellitus in third trimester [facility] BPP SINGLE Routine 07/24/2024 3:43 PM CDT with type 2 diabetes mellitus in second trimester GLUCOSE BY METER Routine 07/22/2024 9:36 AM CDT ECHO COMPLETE Routine 07/22/2024 9:30 AM CDT GLUCOSE BY METER Routine 07/22/2024 8:50 AM CDT GLUCOSE BY METER Routine 07/22/2024 8:2 7 AM CDT CBC WITH PLATELETS & DIFFERENTIAL Routine 07/22/2024 7:28 AM CDT CBC WITH PLATELETS AND DIFFERENTIAL Routine 07/22/2024 7:28 AM CDT COMPREHENSIVE METABOLIC PANEL Routine 07/22/2024 7:28 AM CDT US LOWER EXTREMITY VENOUS DUPLEX BILATERAL STAT 07/22/2024 5:08 AM CDT GLUCOSE BY METER Routine 07/22/2024 4:04 AM CDT GLUCOSE BY METER Routine 07/22/2024 3:41 AM CDT MAGNESIUM Routine 07/22/2024 1:26 AM CDT US ABDOMEN COMPLETE STAT 07/21/2024 1 1:03 PM CDT TROPONIN T, HIGH SENSITIVITY Routine 07/21/2024 10:22 PM CDT D DIMER QUANTITATIVE Routine 07/21/2024 10:22 PM CDT ECG 12-LEAD WITH MUSE ? SJN,SJO,WWH Routine 07/21/2024 10:12 PM CDT ABO/RH TYPE AND SCREEN STAT 07/21/2024 8:13 PM CDT TYPE AND SCREEN, ADULT STAT 07/21/2024 8:13 PM CDT HEMOGLOBIN A1C Add-On 07/21/2024 8:13 PM CDT EXTRA RED TOP TUBE (LAB USE ONLY) Routine 07/21/2024 8:13 PM CDT LIPASE STAT 07/21/2024 8:13 PM CDT COMPREHENSIVE METABOLIC PANEL STAT 07/21/2024 8:13 PM CDT CBC WITH PLATELETS STAT 07/21/2024 8: 13 PM CDT PROTEIN RANDOM URINE STAT 07/21/2024 7:58 PM CDT [facility] BPP SINGLE Routine 07/21/2024 3:47 PM CDT with type 2 diabetes mellitus in second trimester GLUCOSE BY METER Routine 07/19/2024 8:53 PM CDT RUPTURE OF MEMBRANES BY ROM PLUS STAT 07/19/2024 7:26 PM CDT GROUP B STREP PCR STAT 07/19/2024 7:2 5 PM CDT WET PREPARATION STAT 07/19/2024 7:25 PM CDT ROUTINE UA WITH MICROSCOPIC REFLEX TO CULTURE STAT 07/19/2024 7:24 PM CDT FERN TEST FOR RUPTURE OF MEMBRANES STAT 07/19/2024 7:23 PM CDT [facility] US COMPREHENSIVE SINGLE F/U Routine 07/17/2024 9:03 AM CDT Chronic hypertension in [facility] BPP SINGLE Routine 07/10/2024 3:34 PM CDT with type 2 diabetes mellitus in second trimester Polyhydramnios affecting [facility] BPP SINGLE Routine 07/04/2024 4:12 PM CDT with type 2 diabetes mellitus in second trimester Polyhydramnios affecting [facility] BPP SINGLE Routine 06/25/2024 3:42 PM CDT with type 2 diabetes mellitus in second trimester Polyhydramnios affecting [facility] US COMPREHENSIVE SINGLE F/U Routine 06/20/2024 8:56 AM CDT Chronic hypertension in HIV 1&2 ANTIBODY (EXTERNAL RESULT) Routine 01/25/2024 9:00 AM CDT HEPATITIS C ANTIBODY (EXTERNAL RESULT) Routine 01/25/2024 9:00 AM CDT from Last 3 Months or Most Recently Relevant to Health Maintenance Results * (ABNORMAL) Hemoglobin (08/22/2024 10:12 AM CDT) Only the most recent of6 resultswithin the time period is included. Hemoglobin 8.3(L) 11.7 - 15.7 g/dL 08/22/2024 10:18 AM CDT [facility] Blood BLOOD SPECIMEN / Unknown Venipuncture / Unknown 08/22/2024 10:12 AM CDT 08/22/2024 10:16 AM CDT Nuria Kash LAINEZ [facility] - BLOOD ORDERABLES Final Result [facility] [address] [place] [address], [facility] * CTA Abdomen Pelvis with Contrast (08/21/2024 3:12 AM CDT) Anatomical Region Laterality Modality Abdomen/Pelvis, SUBRAD IR NE OCEDURE, UMP CT CTA, RAD CT Computed Tomography 08/21/2024 3:12 AM CDT Impressions 08/21/2024 4:07 AM CDT IMPRESSION: 1. ??Aorta is negative. No acute vascular findings in the abdomen or pelvis. Nothing definite for active arterial bleeding within the pelvis. No significant hematoma visualized in the pelvis. 2. ??Enlarged heterogeneous uterus compatible with the recent state and recent surgery. 3. ??Scattered free fluid in the pelvis as well as extraluminal air in the lower pelvis anteriorly as well as a small amount of free intraperitoneal air. These findings are all likely on a postoperative basis. Follow-up as clinically warranted. 4. ??Postoperative changes in the anterior abdominal wall related to recent C- section surgery with expected scattered air in the anterior abdominal wall and subcutaneous tissues. No fluid collections or hematoma visualized. 5. ??Mild splenic enlargement. Narrative 08/21/2024 4:07 AM CDT EXAM: CTA ABDOMEN PELVIS WITH CONTRAST LOCATION: [facility] DATE: 08/21/2024 INDICATION: Repeat today at 6pm. Uterine rupture with a right broad ligament hematoma. Gel foam used across uterine defect after it was closed. Pt with poor pain control after surgery, hemoglobin dropping as expected and vitals stable. COMPARISON: None. TECHNIQUE: CT angiogram abdomen pelvis during arterial phase of injection of IV contrast. 2D and 3D MIP reconstructions were performed by the mechanical technologist. Dose reduction techniques were used. CONTRAST: Isovue 370 90 ml. FINDINGS: ANGIOGRAM ABDOMEN/PELVIS: Normal abdominal aorta. Negative for aneurysm, dissection, or acute intimal hematoma. Major branch vessels arising off the aorta are widely patent as are the bilateral iliac arteries. No CT evidence for active arterial bleeding within the pelvis. LOWER CHEST: Dependent atelectasis in both lung bases. Trace amount of pleural fluid bilaterally. HEPATOBILIARY: Normal. PANCREAS: Normal. SPLEEN: Spleen is mildly enlarged measuring up to 14.5 cm. ADRENAL GLANDS: Normal. KIDNEYS/BLADDER: Kidneys are negative. No hydronephrosis. Mark catheter within the bladder, which is decompressed. BOWEL: Bowel is normal in caliber with no evidence for obstruction. No evidence for appendicitis or acute bowel findings. Small amount of free air in the upper abdomen likely on a postoperative basis. LYMPH NODES: Normal. PELVIC ORGANS: Uterus is enlarged and heterogeneous compatible with recent state and recent surgery. Nothing definite for acute active arterial bleeding within the pelvis. Expected scattered small amount of free fluid in the pelvis as well as scattered air in the soft tissues, which should be on a postoperative basis. MUSCULOSKELETAL: No significant bony abnormalities. Postoperative changes in the lower anterior abdominal wall related to surgery with scattered air on a postoperative basis in the anterior abdominal wall. No discrete fluid collection seen. Procedure Note Timoteo Cano MD - 08/21/2024 EXAM: CTA ABDOMEN PELVIS WITH CONTRAST LOCATION: [facility] DATE: 08/21/2024 INDICATION: Repeat today at 6pm. Uterine rupture with a rightbroad ligament hematoma. Gel foam used across uterine defect after it wasclosed. Pt with poor pain control after surgery, hemoglobin dropping asexpected and vitals stable. COMPARISON: None. TECHNIQUE: CT angiogram abdomen pelvis during arterial phase of injectionof IV contrast. 2D and 3D MIP reconstructions were performed by the CTtechnologist. Dose reduction techniques were used. CONTRAST: Isovue 370 90 ml. FINDINGS: ANGIOGRAM ABDOMEN/PELVIS: Normal abdominal aorta. Negative for aneurysm,dissection, or acute intimal hematoma. Major branch vessels arising offthe aorta are widely patent as are the bilateral iliac arteries. No CTevidence for active arterial bleeding within the pelvis. LOWER CHEST: Dependent atelectasis in both lung bases. Trace amount ofpleural fluid bilaterally. HEPATOBILIARY: Normal. PANCREAS: Normal. SPLEEN: Spleen is mildly enlarged measuring up to 14.5 cm. ADRENAL GLANDS: Normal. KIDNEYS/BLADDER: Kidneys are negative. No hydronephrosis. Mark catheterwithin the bladder, which is decompressed. BOWEL: Bowel is normal in caliber with no evidence for obstruction. Noevidence for appendicitis or acute bowel findings. Small amount of freeair in the upper abdomen likely on a postoperative basis. LYMPH NODES: Normal. PELVIC ORGANS: Uterus is enlarged and heterogeneous compatible with recentpostpartum state and recent surgery. Nothing definite for acuteactive arterial bleeding within the pelvis. Expected scattered smallamount of free fluid in the pelvis as well as scattered air in the soft tissues, which should be on apostoperative basis. MUSCULOSKELETAL: No significant bony abnormalities. Postoperative changesin the lower anterior abdominal wall related to surgery withscattered air on a postoperative basis in the anterior abdominal wall. Nodiscrete fluid collection seen. IMPRESSION: 1. Aorta is negative. No acute vascular findings in the abdomen orpelvis. Nothing definite for active arterial bleeding within the pelvis.No significant hematoma visualized in the pelvis. 2. Enlarged heterogeneous uterus compatible with the recent postpartumstate and recent surgery. 3. Scattered free fluid in the pelvis as well as extraluminal air in thelower pelvis anteriorly as well as a small amount of free intraperitonealair. These findings are all likely on a postoperative basis. Follow-up asclinically warranted. 4. Postoperative changes in the anterior abdominal wall related to recentC- section surgery with expected scattered air in the anterior abdominalwall and subcutaneous tissues. No fluid collections or hematomavisualized. 5. Mild splenic enlargement. us Katie Ho MD IMG CT ORDERABLES Final Result * Epidural Block (08/20/2024 1:44 PM CDT) Narrative Obinna Gautam MD - 08/20/2024 1:44 PM CDT Obinna Gautam MD ? 08/20/2024 ??4:12 PM Epidural [...] Medication Administration Time: 08/20/2024 1:44 PM FOR [facility] ([facility]) ONLY: ?? Pain Team Contact information: please page the Pain Team Via [employer]. Search Pain. During daytime hours, please page the attending first. At night please page the resident first. us Obinna Gautam MD NE ANESTHESIA Final R esult * Glucose by meter (08/20/2024 11:28 AM CDT) Only the most recent of7 resultswithin the time period is included. [facility] Signature GLUCOSE BY METER POCT 73 70 - 99 mg/dL 08/20/2024 11:34 AM T [facility] POCT RESULTS Blood, Capillary BLOOD SPECIMEN / Unknown 08/20/2024 11:28 AM CDT 08/20/2024 11:34 AM CDT Teresa Romero [facility] POCT Final Result [facility] POCT RESULTS [address] [place] [address] * (ABNORMAL) UA with Microscopic reflex to Culture (08/20/2024 10:02 AM CDT) Only the most recent of3 resultswithin the time period is included. Color Urine Yellow Colorless, Straw, Light Yellow, Yellow 08/20/2024 10:27 AM T [facility] Appearance Urine Turbid(A) Clear 08/20/20 24 10:27 AM T [facility] Glucose Urine Negative Negative mg/dL 08/20/2024 10:27 AM CDT [facility] Bilirubin Urine Negative Negative 10:27 AM CDT [facility] Ketones Urine Negative Negative mg/dL 08/20/2024 10:27 AM [facility] Specific [place] Urine 1.026 1.001 - 1.030 08/20/2024 10:27 AM CDT [facility] Blood Urine Negative Negative 08/20/2024 10:27 AM CDT [facility] pH Urine 6.5 5.0 - 7.0 08/20/2024 10:27 AM [facility] Protein Albumin Urine 20(A) Negative mg/dL 08/20/2024 10:27 AM CDT [facility] Urobilinogen Urine <2.0 <2.0 mg/dL 08/20/2024 10:27 AM CDT [facility] Nitrite Urine Negative Negative 08/20/2024 10:27 AM [facility] Leukocyte Esterase Urine 75 [place]/uL(A) Negative 08/20/2024 10:27 AM [facility] Bacteria Urine Few(A) None Seen /HPF 08/20/2024 10:27 AM [facility] Mucus Urine Present(A) None Seen /LPF 08/20/2024 10:27 AM [facility] RBC Urine <1 <=2 /HPF 08/20/2024 10:27 AM [facility] WBC Urine 2 <=5 /HPF 08/20/2024 10:27 AM [facility] Squamous Epithelials Urine 27(H) <=1 /HPF 08/20/2024 10:27 AM [facility] Urine MID-STREAM URINE SPECIMEN / Unknown Non-blood Collection / Unknown 08/20/2024 10:02 AM CDT 08/20/2024 10:10 AM CDT Narrative [facility] - 08/20/2024 10:27 AM CDT Urine Culture not indicated us Teresa [facility] - URINE ORDERABLES Final Res ult [facility] [address] [place] [address], [place] * Protein random urine (08/20/2024 10:02 AM CDT) Only the most recent of3 resultswithin the time period is included. Total Protein Urine mg/dL 27.3 mg/dL 08/20/2024 10:33 AM CDT [facility] Comment:The reference ranges have not been established in urine protein. The results should be integrated into the clinical context for interpretation. Total Protein Urine mg/mg Creat 0.13 0.00 - 0.20 mg/mg Cr 08/20/2024 10:33 AM CDT [facility] Creatinine Urine mg/dL 212.0 mg/dL 08/20/2024 10:33 AM CDT [facility] Comment:The reference ranges have not been established in urine creatinine. The results should be integrated into the clinical context for interpretation. Urine URETHRAL STRUCTURE / Unknown Non-blood Collection / Unknown 08/20/2024 10:02 AM CDT 08/20/2024 10:11 AM CDT Teresa [facility] - URINE ORDERABLES Final Res ult [facility] [address] [place] [address], [facility] * Urine Drug Screen Panel (08/20/2024 10:02 AM CDT) Amphetamines Urine Screen Negative Screen Negative 08/21/2024 2:20 PM CDT [facility] Comment:Cutoff for a negativ e amphetamine is less than 500 ng/mL. Barbituates Urine Screen Negative Screen Negative 08/21/2024 2:20 PM CDT [facility] Comment:Cutoff for a negativ e barbiturate is less than 200 ng/mL. Benzodiazepine Urine Screen Negative Screen Negative 08/21/2024 2:20 PM CDT [facility] Comment:Cutoff for a negativ e benzodiazepine is less than 100 ng/mL. Cannabinoids Urine Screen Negative Screen Negative 08/21/2024 2:20 PM CDT [facility] Comment:Cutoff for a negativ e cannabinoid is less than 50 ng/mL. Cocaine Urine Screen Negative Screen Negative 08/21/2024 2:20 PM CDT [facility] Comment:Cutoff for a negativ e cocaine is less than 300 ng/mL. Fentanyl Qual Urine Screen Negative Screen Negative 08/21/2024 2:20 PM CDT [facility] Comment:Cutoff for negative fentanyl is less than 5 ng/mL. Opiates Urine Screen Negative Screen Negative 08/21/2024 2:20 PM CDT [facility] Comment:Cutoff for a negativ e opiate is less than 300 ng/mL. PCP Urine Screen Negative Screen Negative 08/21/2024 2:20 PM CDT [facility] Comment:Cutoff for a negativ e PCP is less than 25 ng/mL. Urine URETHRAL STRUCTURE / Unknown Non-blood Collection / Unknown 08/20/2024 10:02 AM CDT 08/20/2024 10:11 AM CDT Nuria [facility] - URINE ORDERABLES Final Result Performing Organization Address [facility]/ZIP Co de Phone Number [facility] [address] [place] [address], [facility] * Hemoglobin A1c (08/20/2024 9:14 AM CDT) Only the most recent of2 resultswithin the time period is included. Estimated Average Glucose 105 <117 mg/dL 08/20/2024 10:03 AM CDT [facility] Hemoglobin A1C 5.3 <5.7 % 08/20/2024 10:03 AM CDT [facility] Comment: Normal <5.7% Prediabetes 5.7-6.4% ?? Diabetes 6.5% or higher Note: Adopted from ADA consensus guidelines. Blood BLOOD SPECIMEN / Unknown Venipuncture / Unknown 08/20/2024 9:14 AM CDT 08/20/2024 9:26 AM CDT Teresa [facility] - BLOOD ORDERABLES Final Res ult [facility] [address] [place] [address], [place] * (ABNORMAL) Comprehensive Metabolic Panel (08/20/2024 9:13 AM CDT) Only the most recent of4 resultswithin the time period is included. Sodium 136 135 - 145 mmol/L 08/20/2024 9:48 AM [facility] Potassium 3.6 3.4 - 5.3 mmol/L 08/20/2024 9:48 AM [facility] Carbon Dioxide (CO2) 19(L) 22 - 29 mmol/L 08/20/2024 9:48 AM [facility] Anion Gap 12 7 - 15 mmol/L 08/20/2024 9:48 AM [facility] Urea Nitrogen 5.6(L) 6.0 - 20.0 mg/dL 08/20/2024 9:48 AM [facility] Creatinine 0.49(L) 0.51 - 0.95 mg/dL 08/20/2024 9:48 AM [facility] GFR Estimate >90 >60 mL/min/1.7 3m2 08/20/2024 9:48 AM [facility] Comment:eGFR calculated us2020 CKD-EPI equation. Calcium 8.4(L) 8.8 - 10.4 mg/dL 08/20/2024 9:48 AM [facility] Comment:Reference intervals for this test were updated on 05/06/2024 to reflect our healthy population more accurately. There may be differences in the flagging of prior results with similar values performed with this method. Those prior results can be interpreted in the context of the updated reference intervals. Chloride 105 98 - 107 mmol/L 08/20/2024 9:48 AM [facility] Glucose 92 70 - 99 mg/dL 08/20/2024 9:48 AM [facility] Alkaline Phosphatase 102 40 - 150 U/L 08/20/2024 9:48 AM [facility] AST 29 0 - 45 U/L 08/20/2024 9:48 AM [facility] ALT 13 0 - 50 U/L 08/20/2024 9:48 AM [facility] Protein Total 6.0(L) 6.4 - 8.3 g/dL 08/20/2024 9:48 AM [facility] Albumin 3.1(L) 3.5 - 5.2 g/dL 08/20/2024 9:48 AM CDT [facility] Bilirubin Total 0.4 <=1.2 mg/dL 08/20/2024 9:48 AM CDT [facility] Blood BLOOD SPECIMEN / Unknown Venipuncture / Unknown 08/20/2024 9:13 AM CDT 08/20/2024 9:26 AM CDT Teresa [facility] - BLOOD ORDERABLES Final Res ult [facility] [address] [place] [address], [facility] * (ABNORMAL) CBC with platelets (08/20/2024 9:13 AM CDT) Only the most recent of3 resultswithin the time period is included. WBC Count 9.4 4.0 - 11.0 10e3/uL 08/20/2024 9:31 AM [facility] RBC Count 4.33 3.80 - 5.20 10e6/uL 08/20/2024 9:31 AM [facility] Hemoglobin 11.2(L) 11.7 - 15.7 g/dL 08/20/2024 9:31 AM [facility] Hematocrit 33.6(L) 35.0 - 47.0 % 08/20/2024 9:31 AM [facility] MCV 78 78 - 100 fL 08/20/2024 9:31 AM [facility] MCH 25.9(L) 26.5 - 33.0 pg 08/20/2024 9:31 AM T [facility] MCHC 33.3 31.5 - 36.5 g/dL 08/20/2024 9:31 AM T [facility] RDW 12.8 10.0 - 15.0 % 08/20/2024 9:31 AM [facility] Platelet Count 199 150 - 450 10e3/uL 08/20/2024 9:31 AM [facility] Blood BLOOD SPECIMEN / Unknown Venipuncture / Unknown 08/20/2024 9:13 AM CDT 08/20/2024 9:26 AM CDT Teresa [facility] - BLOOD ORDERABLES Final Res ult [facility] [address] [facility] * Adult Type and Screen (08/20/2024 9:11 AM CDT) Only the most recent of2 resultswithin the time period is included. ABO/RH(D) O POS 08/20/2024 9:05 AM CDT [facility] Antibody Screen Negative Negative 08/20/2024 9:05 AM CDT [facility] SPECIMEN EXPIRATION DATE [id number] 08/20/2024 9:05 AM CDT [facility] Blood BLOOD SPECIMEN / Unknown Venipuncture / Unknown 08/20/2024 9:11 AM CDT 08/20/2024 9:26 AM CDT Teresa [facility] - BLOOD BANK TEST ORDER Cristiana l Result Performing Organization Address [facility]/ZIP Co de Phone Number [facility] [address] * Treponema Abs w Reflex to RPR and Titer (08/20/2024 9:11 AM CDT) Pathologist [facility] [place] Treponema Antibody Total Nonreactive Nonreactive 08/20/2024 3:35 PM CDT [facility] Blood BLOOD SPECIMEN / Unknown Venipuncture / Unknown 08/20/2024 9:11 AM CDT 08/20/2024 9:26 AM CDT Teresa [facility] - BLOOD ORDERABLES Final Res ult [facility] [address] [facility] [address], Room [address] * Glucose by meter POCT (08/20/2024) Glucose 71 70 - 99 mg/dL Whole blood 08/20/2024 us Patient Reported LAB - ENTER/EDIT POCT Final Res ult * MFM BPP Single (08/18/2024 12:22 PM CDT) Only the most recent of9 resultswithin the time period is included. Anatomical Region Laterality Modality Ultrasound 08/18/2024 11:5 6 AM CDT Impressions 08/18/2024 1:12 PM CDT IMPRESSION ----- 1. Mcmahan intrauterine at 36w 5d gestational age here for testing. 2. The fetus is in cephalic presentation. The amniotic fluid volume is normal. 3. The BPP is 05/29. Narrative 08/18/2024 1:12 PM CDT ?BPP ----- Pat. Name: ROLA MCKEON ? Study Date: ??08/18/2024 11:56am Pat. NO: ??[id number] ?Referring ??MD: ESTHER LAURENT Site: ? Clinical Informatics Specialist: Nathalie Harman RDMS : ??1990 ?Age: ?? [...] MCKEON Study Date: 08/18/2024 11:56am Pat. NO: [id number] Referring MD: ESTHER LAURENT Site: Clinical Informatics Specialist: Nathalie Harman RDMS : 1990 Age: 34 [...] movements 2: tone 2: Amniotic fluid volume 05/29 Biophysical profile score Interpretation: normal RECOMMENDATION ----- [...] fluid volume isnormal. 3. The BPP is 05/29. us Ilene Alegria MD [facility] US ORDERABLES Edited Re sult - Final * [facility] Comprehensive Single F/U (08/14/2024 8:43 AM CDT) Only the most recent of3 resultswithin the time period is included. Anatomical Region Laterality Modality Ultrasound 08/14/2024 8:06 AM CDT Impressions 08/14/2024 9:06 AM CDT IMPRESSION ----- 1. Mcmahan at 36w 1d gestational age. 2. None of the anomalies commonly detected by ultrasound were evident in the limited anatomic survey as described above. 3. Growth parameters and estimated weight were appropriate for gestational age. 4. There is mild polyhydramnios with an JOHN of 28cm. 5. The BPP was 05/29. Narrative 08/14/2024 9:06 AM CDT ?Comp Follow Up ----- Pat. Name: ROLA MCKEON ? Study Date: ??08/14/2024 8:06am Pat. NO: ??[id number] ?Referring ??MD: ESTHER LAURENT Site: ? Clinical Informatics Specialist: Sandhya Barrow RDMS : ??1990 ?Age: ?? 34 ----- INDICATION ----- Chronic hypertension - on Labetalol Type 2 diabetes - on insulin History of PPROM at 36 weeks. Echogenic bowel seen on prior exam. METHOD ----- Transabdominal ultrasound examination. View: Sufficient. ----- Mcmahan . Number of fetuses: 1 DATING ----- ? Date ?Details ?Gest. age ?CARLOS LMP ?11/28/2023 ? 37 w + 1 d ? 09/03/2024 Previous U/S ?01/25/2024 ?GA, GA 7 w + 2 d ? 36 w + 1 d ? 09/10/2024 U/S ? 08/14/2024 ? based upon AC, BPD, Femur, HC ?36 w + 3 d ? 09/08/2024 Assigned dating ?based on ultrasound (GA), selected on 08/07/2024 ?36 w + 1 d ? 09/10/2024 GENERAL EVALUATION ----- Cardiac activity present. FHR 143 bpm. movements: present. Presentation: cephalic Placenta: Anterior Umbilical cord: 3 vessel cord Amniotic fluid: Amount of AF: Polyhydramnios. MVP 10.0 cm. JOHN 28.2 cm. Q1 7.5 cm, Q2 6.1 cm, Q3 5.7 cm, Q4 8.9 cm BIOMETRY ----- BPD ? 89.2 ?mm ? 36w 1d ?Hadlock OFD ? 114.2 ?mm ? 35w 4d ? Nicolaides HC ? 325.5 ?mm ? 36w 6d ? Hadlock Cerebellum tr ?51.1 ?mm ? -/- ?Nicolaides AC ? 345.8 ?mm ? 38w 3d ?98% ?Hadlock Femur ?66.1 ?mm ? 34w 0d ? Hadlock Weight Calculation: EFW ?3,091 ?g ?74% ? Hadlock EFW (lb,oz) ?6 lb 13 ?oz EFW by ? Hadlock ([id number]) Head / Face / Neck Biometry: Technology Sales Specialist ?6.2 ? mm CM ? 6.6 ? mm ANATOMY ----- The following structures appear normal: Head / Neck ? Cranium. Head size. Head shape. Lateral ventricles. Midline falx. Cavum septi pellucidi. Cerebellum. Cisterna magna. Thalami. Face ? Lips. Profile. Nose. Heart / Thorax ?4-chamber view. RVOT view. LVOT view. [id number] view. ? Diaphragm. Abdomen ? Stomach. Kidneys. Bladder. Spine ?Cervical spine. Thoracic spine. Lumbar spine. Sacral spine. sex: female. BIOPHYSICAL PROFILE ----- 2: breathing movements 2: Gross body movements 2: tone 2: Amniotic fluid volume 8/8 Biophysical profile score MATERNAL STRUCTURES ----- Cervix ?Suboptimal Right Ovary ?Not examined Left Ovary ?Not examined RECOMMENDATION ----- Thank-you for referring your patient for ultrasound assessment. I discussed the findings on today's ultrasound with the patient. Continue twice weekly surveillance until delivery. Rola reports that she has been feeling unwell the last few weeks - her blood sugar control has been good but she states her blood pressures have been in the 140s-160s/100s and she has had a headache, vision changes, fatigue, nausea, and right upper quadrant pain. She states she has been evaluated once or twice for preeclampsia but some of her symptoms are new. She reports having her blood pressure medications increased a lot recently - she is now on 400mg BID of Labetalol. Discussed my concern based on her blood pressures/symptoms for preeclampsia. Advised she go to triage for evaluation. 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 Reviewed warning signs/symptoms and call precautions. We reviewed that the goals of antihypertensive therapy in of < 140/90 reduce the risk of developing superimposed preeclampsia with severe features, abruption, delivery < 35 weeks, and / without an increased risk of growth restriction/small for gestation age infants. We discussed that in the event of new elevations in blood pressures after 20 weeks gestation, we would recommend thorough evaluation for preeclampsia prior to medication dose escalation. With regards to timing of delivery if she does not have superimposed preeclampsia with severe features would be as follows: - Chronic hypertension on medications: [id number] - Chronic hypertension on medications requiring ongoing dose escalation/suboptimal control: [id number] If she is diagnosed with superimposed preeclampsia with severe features then delivery at this time would be recommended. If she has superimposed preeclampsia without severe features delivery at 37w0d is recommended. I would recommend a thorough evaluation for preeclampsia based on her worsening blood pressures/symptoms today. Return to primary provider for continued care. Continue twice weekly surveillance (these can be performed with either our office or yours) until delivery. If you have questions regarding today's evaluation or if we can be of further service, please contact the [facility]. anomalies may be present but not detected I spent a total of 20 minutes on the date of this encounter including preparing to see the patient (reviewing medical records/tests), counseling and discussing the plan of care, documenting the visit in the electronic medical record, and communicating with other health youth care professional and/or care coordination. Procedure Note Ilene Alegria MD - 08/14/2024 Comp Follow Up ----- Pat. Name: ROLA MCKEON Study Date: 08/14/2024 8:06am Pat. NO: [id number] Referring MD: ESTHER LAURENT Site: Clinical Informatics Specialist: Sandhya Barrow RDMS : 1990 Age: 34 ----- INDICATION ----- Chronic hypertension - on Labetalol Type 2 diabetes - on insulin History of PPROM at 36 weeks. Echogenic bowel seen on prior exam. METHOD ----- Transabdominal ultrasound examination. View: Sufficient. ----- Mcmahan . Number of fetuses: 1 DATING ----- DateDetailsGest. age CARLOS LMP w + 1 d 09/03/2024 Previous U/S 01/25/2024 GA, GA7 w + 2 d36 w + 1 d 09/10/2024 U/S 08/14/2024ased upon AC, BPD, Femur, HC36 w + 3 d 09/08/2024 Assigned dating based on ultrasound (GA), selected on08/07/2024 36w + 1 d 09/10/2024 GENERAL EVALUATION ----- Cardiac activity present. FHR 143 bpm. movements: present.Presentation: cephalic Placenta: Anterior Umbilical cord: 3 vessel cord Amniotic fluid: Amount of AF: Polyhydramnios. MVP 10.0 cm. JOHN 28.2 cm. Q17.5 cm, Q2 6.1 cm, Q3 5.7 cm, Q4 8.9 cm BIOMETRY ----- BPD 89.2mm 36w 1dHadlock OFD 114.2mm 35w 4dNicolaides HC 325.5mm 36w 6dHadlock Cerebellum tr 51.1mm -/-Nicolaides AC 345.8mm 38w 3d 98%Hadlock Femur 66.1mm 34w 0dHadlock Weight Calculation: EFW 3,091g 74%Hadlock EFW (lb,oz) 6 lb 13oz EFW by Hadlock([id number]) Head / Face / Neck Biometry: Technology Sales Specialist 6.2mm CM 6.6mm ANATOMY ----- The following structures appear normal: Head / Neck Cranium. Head size. Head shape.Lateral ventricles. Midline falx. Cavum septi pellucidi. Cerebellum.Cisterna magna. Thalami. Face Lips. Profile. Nose. Heart / Thorax 4-chamber view. RVOT view. LVOT view.0-[id number] view. Diaphragm. Abdomen Stomach. Kidneys. Bladder. Spine Cervical spine. Thoracic spine.Lumbar spine. Sacral spine. sex: female. BIOPHYSICAL PROFILE ----- 2: breathing movements 2: Gross body movements 2: tone 2: Amniotic fluid volume 05/29 Biophysical profile score MATERNAL STRUCTURES ----- Cervix Suboptimal Right Ovary Not examined Left Ovary Not examined RECOMMENDATION ----- Thank-you for referring your patient for ultrasound assessment. Idiscussed the findings on today's ultrasound with the patient. Continue twice weekly surveillance until delivery. Aurorareports that she has been feeling unwell the last few weeks - her bloodsugar control has been good but she states her blood pressures have been in the 140s-160s/100s and she hashad a headache, vision changes, fatigue, nausea, and right upper quadrantpain. She states she has been evaluated once or twice for preeclampsia but some of hersymptoms are new. She reports having her blood pressure medicationsincreased a lot recently - she is now on 400mg BID of Labetalol. Discussed my concern based on her blood pressures/symptoms forpreeclampsia. Advised she go to triage for evaluation. She has a midwifeappointment immediately following her visit here and would like to speak with them/be evaluatedthere. Reviewed warning signs/symptoms and call precautions. We reviewedthat the goals of antihypertensive therapy in of < 140/90 reduce the risk ofdeveloping superimposed preeclampsia with severe features, abruption, delivery < 35 weeks, and / without an increased risk of growthrestriction/small for gestation age infants. We discussed that in theevent of new elevations in blood pressures after 20 weeks gestation, we would recommend thorough evaluationfor preeclampsia prior to medication dose escalation. With regards to timing of delivery if she does not have superimposedpreeclampsia with severe features would be as follows: - Chronic hypertension on medications: [id number] - Chronic hypertension on medications requiring ongoing doseescalation/suboptimal control: [id number] If she is diagnosed with superimposed preeclampsia with severe featuresthen delivery at this time would be recommended. If she has superimposedpreeclampsia without severe features delivery at 37w0d is recommended. I would recommend athorough evaluation for preeclampsia based on her worsening bloodpressures/symptoms today. Return to primary provider for continued care. Continue twiceweekly surveillance (these can be performed with either ouroffice or yours) until delivery. If you have questions regarding today's evaluation or if we can be offurther service, please contact the [facility]. anomalies may be present but not detected I spent a total of 20 minutes on the date of this encounter includingpreparing to see the patient (reviewing medical records/tests), counselingand discussing the plan of care, documenting the visit in the electronic medical record, andcommunicating with other health youth care professional and/or carecoordination. IMPRESSION ----- 1. Mcmahan at 36w 1d gestational age. 2. None of the anomalies commonly detected by ultrasound were evident inthe limited anatomic survey as described above. 3. Growth parameters and estimated weight were appropriate forgestational age. 4. There is mild polyhydramnios with an JOHN of 28cm. 5. The BPP was 05/29. Dacia Alvarez MD [facility] US ORDERABLES Edited Re sult - Final * (ABNORMAL) Wet preparation (08/09/2024 11:36 PM CDT) Only the most recent of2 resultswithin the time period is included. Trichomonas Absent Absent JANAK 08/09/2024 11:57 PM CDT [facility] Yeast Present(A) Absent JANAK 08/09/2024 11:57 PM CDT [facility] Clue Cells Present(A) Absent JANAK 08/09/2024 11:57 PM CDT [facility] WBCs/high power field 3+(A) None JANAK 08/09/2024 11:57 PM CDT [facility] Swab VAGINAL STRUCTURE / Unknown Non-blood Collection / Unknown 08/09/2024 11:36 PM CDT 08/09/2024 11:44 PM CDT Result [facility] Venus ARANGO LAB - MICRO GENERAL ORDERA BLES Final Result [facility] [address] [place] [address], [facility] * Rupture of Membranes by ROM Plus (08/09/2024 10:46 PM CDT) Only the most recent of2 resultswithin the time period is included. Rupture of Membranes by ROM Plus Negative Negative, Invalid, Suggest Repeat JANAK 08/09/2024 11:25 PM CDT [facility] Swab VAGINAL STRUCTURE / Unknown Non-blood Collection / Unknown 08/09/2024 10:46 PM CDT 08/09/2024 10:50 PM CDT Narrative [facility] - 08/09/2024 11:25 PM CDT Lot#: [id number] ? Exp: 01/2027 It is recommended that the tests to detect rupture of the amniotic membranes should not be used without other clinical assessments to make clinical patient management decision. Venus Valladares CNM LAB - BODY FLUIDS ORDERABL ES Final Result [facility] [address] [place] [address], [facility] * ECHO COMPLETE (07/22/2024 9:30 AM CDT) LVEF 60-65% CARDIOLOGY RESULTS Anatomical Region Laterality Modality Ultrasound 07/22/2024 9:10 AM CDT Narrative 07/22/2024 11:02 AM CDT [id number]^CHARY^NOREEN^[place] [address] Name: ROLA MCKEON : 1990 Study Date: 07/22/2024 09:10 AM Age: 34 yrs Gender: Female Patient Location: [facility] Reason For Study: Chest Pain Ordering Physician: NOREEN BULLARD Performed By: AD BSA: 1.7 m2 Height: 60 in Weight: 160 lb HR: 87 Procedure Complete Echo Adult. Interpretation Summary Left ventricular size, wall motion and function are normal. The ejection fraction is 60-65%. Normal right ventricle size and systolic function. Ascending Aorta dilatation is present. No hemodynamically significant valvular abnormalities on 2D or color flow imaging. Left Ventricle Left ventricular size, wall motion and function are normal. The ejection fraction is 60-65%. There is normal left ventricular wall thickness. Left ventricular diastolic function is abnormal. Diastolic Doppler findings (E/E' ratio and/or other parameters) suggest left ventricular filling pressures are increased. No regional wall motion abnormalities noted. Right Ventricle Normal right ventricle size and systolic function. TAPSE is normal, which is consistent with normal right ventricular systolic function. Atria The left atrium is mildly dilated. The right atrium is mildly dilated. There is no color Doppler evidence of an atrial shunt. Mitral Valve Mitral valve leaflets appear normal. There is no evidence of mitral stenosis or clinically significant mitral regurgitation. There is trace to mild mitral regurgitation. Tricuspid Valve Tricuspid valve leaflets appear normal. There is no evidence of tricuspid stenosis or clinically significant tricuspid regurgitation. Right ventricular systolic pressure could not be approximated due to inadequate tricuspid regurgitation. There is trace tricuspid regurgitation. Aortic Valve The aortic valve is trileaflet with aortic valve sclerosis. There is trace aortic regurgitation. No hemodynamically significant valvular aortic stenosis. Pulmonic Valve The pulmonic valve is not well seen, but is grossly normal. There is trace pulmonic valvular regurgitation. Vessels The aorta root is normal. Ascending Aorta dilatation is present. IVC diameter <2.1 cm collapsing >50% with sniff suggests a normal RA pressure of 3 mmHg. Pericardium There is no pericardial effusion. MMode/2D Measurements & Calculations IVSd: 1.0 cm LVIDd: 5.0 cm LVIDs: 3.4 cm LVPWd: 1.1 cm FS: 31.7 % LV mass(C)d: 199.2 grams LV mass(C)dI: 117.4 grams/m2 Ao root diam: 2.9 cm LA dimension: 4.2 cm asc Aorta Diam: 3.9 cm LA/Ao: 1.4 LVOT diam: 1.9 cm LVOT area: 2.7 cm2 Ao root diam index Ht(cm/m): 1.9 Ao root diam index BSA (cm/m2): 1.7 Asc Ao diam index BSA (cm/m2): 2.3 Asc Ao diam index Ht(cm/m): 2.6 EF Biplane: 65.4 % LA Volume Indexed (AL/bp): 32.5 ml/m2 RV Base: 3.7 cm RWT: 0.43 TAPSE: 2.2 cm Time Measurements MM HR: 78.0 BPM Doppler Measurements & Calculations MV E max jay: 130.0 cm/sec MV A max jay: 113.2 cm/sec MV E/A: 1.1 MV max P.4 mmHg MV mean P.5 mmHg MV V2 VTI: 36.6 cm MVA(VTI): 2.6 cm2 MV dec slope: 694.6 cm/sec2 MV dec time: 0.19 sec Ao V2 max: 214.6 cm/sec Ao max P.0 mmHg Ao V2 mean: 166.8 cm/sec Ao mean P.7 mmHg Ao V2 VTI: 43.1 cm RICARDA(I,D): 2.2 cm2 RICARDA(V,D): 2.2 cm2 LV V1 max P.9 mmHg LV V1 max: 172.3 cm/sec LV V1 VTI: 34.4 cm SV(LVOT): 94.3 ml SI(LVOT): 55.5 ml/m2 PA acc time: 0.12 sec AV Jay Ratio (DI): 0.80 RICARDA Index (cm2/m2): 1.3 E/E': 14.6 E/E' av.8 Lateral E/e': 11.0 Medial E/e': 14.6 Peak E' Jay: 8.9 cm/sec RV S Jay: 14.0 cm/sec Report approved by: Suresh Pichardo 07/22/2024 11:02 AM Procedure Note Haider Ellis MD - 07/22/2024 [id number]^CHARY^NOREEN^[place] [address] Name: ROLA MCKEON : 1990 Study Date: 07/22/2024 09:10 AM Age: 34 yrs Gender: Female Patient Location: [facility] Reason For Study: Chest Pain Ordering Physician: NOREEN BULLARD Performed By: CHARLENE BSA: 1.7 m2 Height: 60 in Weight: 160 lb HR: 87 Procedure Complete Echo Adult. Interpretation Summary Left ventricular size, wall motion and function are normal. The ejection fraction is 60-65%. Normal right ventricle size and systolic function. Ascending Aorta dilatation is present. No hemodynamically significant valvular abnormalities on 2D or colorflow imaging. Left Ventricle Left ventricular size, wall motion and function are normal. The ejection fraction is 60-65%. There is normal left ventricular wall thickness.Left ventricular diastolic function is abnormal. Diastolic Doppler findings(E/E' ratio and/or other parameters) suggest left ventricular filling pressuresare increased. No regional wall motion abnormalities noted. Right Ventricle Normal right ventricle size and systolic function. TAPSE is normal, whichis consistent with normal right ventricular systolic function. Atria The left atrium is mildly dilated. The right atrium is mildly dilated.There is no color Doppler evidence of an atrial shunt. Mitral Valve Mitral valve leaflets appear normal. There is no evidence of mitralstenosis or clinically significant mitral regurgitation. There is trace to mildmitral regurgitation. Tricuspid Valve Tricuspid valve leaflets appear normal. There is no evidence oftricuspid stenosis or clinically significant tricuspid regurgitation. Rightventricular systolic pressure could not be approximated due to inadequate tricuspid regurgitation. There is trace tricuspid regurgitation. Aortic Valve The aortic valve is trileaflet with aortic valve sclerosis. There istrace aortic regurgitation. No hemodynamically significant valvular aorticstenosis. Pulmonic Valve The pulmonic valve is not well seen, but is grossly normal. There istrace pulmonic valvular regurgitation. Vessels The aorta root is normal. Ascending Aorta dilatation is present. IVCdiameter <2.1 cm collapsing >50% with sniff suggests a normal RA pressure of 3mmHg. Pericardium There is no pericardial effusion. MMode/2D Measurements & Calculations IVSd: 1.0 cm LVIDd: 5.0 cm LVIDs: 3.4 cm LVPWd: 1.1 cm FS: 31.7 % LV mass(C)d: 199.2 grams LV mass(C)dI: 117.4 grams/m2 Ao root diam: 2.9 cm LA dimension: 4.2 cm asc Aorta Diam: 3.9 cm LA/Ao: 1.4 LVOT diam: 1.9 cm LVOT area: 2.7 cm2 Ao root diam index Ht(cm/m): 1.9 Ao root diam index BSA (cm/m2): 1.7 Asc Ao diam index BSA (cm/m2): 2.3 Asc Ao diam index Ht(cm/m): 2.6 EF Biplane: 65.4 % LA Volume Indexed (AL/bp): 32.5 ml/m2 RV Base: 3.7 cm RWT: 0.43 TAPSE: 2.2 cm Time Measurements MM HR: 78.0 BPM Doppler Measurements & Calculations MV E max jay: 130.0 cm/sec MV A max jay: 113.2 cm/sec MV E/A: 1.1 MV max P.4 mmHg MV mean P.5 mmHg MV V2 VTI: 36.6 cm MVA(VTI): 2.6 cm2 MV dec slope: 694.6 cm/sec2 MV dec time: 0.19 sec Ao V2 max: 214.6 cm/sec Ao max P.0 mmHg Ao V2 mean: 166.8 cm/sec Ao mean P.7 mmHg Ao V2 VTI: 43.1 cm RICARDA(I,D): 2.2 cm2 RICARDA(V,D): 2.2 cm2 LV V1 max P.9 mmHg LV V1 max: 172.3 cm/sec LV V1 VTI: 34.4 cm SV(LVOT): 94.3 ml SI(LVOT): 55.5 ml/m2 PA acc time: 0.12 sec AV Jay Ratio (DI): 0.80 RICARDA Index (cm2/m2): 1.3 E/E': 14.6 E/E' av.8 Lateral E/e': 11.0 Medial E/e': 14.6 Peak E' Jay: 8.9 cm/sec RV S Jay: 14.0 cm/sec Report approved by: Suresh Pichardo 07/22/2024 11:02 AM us Noreen Bullard MD CV ECHO ORDERABLES Edited Resul t - Final * (ABNORMAL) CBC with platelets and differential (07/22/2024 7:28 AM CDT) WBC Count 7.0 4.0 - 11.0 10e3/uL 07/22/2024 8:17 AM CDT [facility] RBC Count 3.69(L) 3.80 - 5.20 10e6/uL 07/22/2024 8:17 AM CDT [facility] Hemoglobin 10.0(L) 11.7 - 15.7 g/dL 07/22/2024 8:17 AM CDT [facility] Hematocrit 31.1(L) 35.0 - 47.0 % 07/22/2024 8:17 AM CDT [facility] MCV 84 78 - 100 fL 07/22/2024 8:17 AM CDT [facility] MCH 27.1 26.5 - 33.0 pg 07/22/2024 8:17 AM CDT [facility] MCHC 32.2 31.5 - 36.5 g/dL 07/22/2024 8:17 AM CDT [facility] RDW 12.8 10.0 - 15.0 % 07/22/2024 8:17 AM CDT [facility] Platelet Count 176 150 - 450 10e3/uL 07/22/2024 8:17 AM CDT [facility] % Neutrophils 61 % 07/22/2024 8:17 AM CDT [facility] % Lymphocytes 29 % 07/22/2024 8:17 AM CDT [facility] % Monocytes 7 % 07/22/2024 8:17 AM CDT [facility] % Eosinophils 1 % 07/22/2024 8:17 AM CDT [facility] % Basophils 1 % 07/22/2024 8:17 AM CDT [facility] % Immature Granulocytes 2 % 07/22/2024 8:17 AM CDT [facility] NRBCs per 100 WBC 0 <1 /100 024 8:17 AM CDT [facility] Absolute Neutrophils 4.3 1.6 - 8.3 10e3/uL 07/22/2024 8:17 AM CDT [facility] Absolute Lymphocytes 2.0 0.8 - 5.3 10e3/uL 07/22/2024 8:17 AM CDT [facility] Absolute Monocytes 0.5 0.0 - 1.3 10e3/uL 07/22/2024 8:17 AM CDT [facility] Absolute Eosinophils 0.1 0.0 - 0.7 10e3/uL 07/22/2024 8:17 AM CDT [facility] Absolute Basophils 0.1 0.0 - 0.2 10e3/uL 07/22/2024 8:17 AM CDT [facility] Absolute Immature Granulocytes 0.1 <=0.4 10e3/uL 07/22/2024 8:17 AM CDT [facility] Absolute NRBCs 0.0 10e3/uL 07/22/2024 8:17 AM CDT [facility] Blood STRUCTURE OF LEFT HAND / Unknown Venipuncture / Unknown 07/22/2024 7:28 AM CDT 07/22/2024 7:[address] SQL PROGRAMMER CNM LAB - BLOOD ORDERABLES Fi nal Result [facility] [address] * US Lower Extremity Venous Duplex Bilateral (07/22/2024 5:08 AM CDT) Anatomical Region Laterality Modality Vascular, Thigh, Leg Ultrasound 07/22/2024 5:08 AM CDT Impressions 07/22/2024 5:18 AM CDT IMPRESSION: 1. ??No deep venous thrombosis in the bilateral lower extremities. Narrative 07/22/2024 5:18 AM CDT EXAM: US LOWER EXTREMITY VENOUS DUPLEX BILATERAL LOCATION: [facility] DATE: 07/22/2024 INDICATION: chest pain, elevated dimer, , b l leg [ain worse in the left COMPARISON: None. TECHNIQUE: Venous Duplex ultrasound of bilateral lower extremities with and without compression, augmentation and duplex. Color flow and spectral Doppler with waveform analysis performed. FINDINGS: Exam includes the common femoral, femoral, popliteal veins as well as segmentally visualized deep calf veins and greater saphenous vein. RIGHT: No deep vein thrombosis. No superficial thrombophlebitis. No popliteal cyst. LEFT: No deep vein thrombosis. No superficial thrombophlebitis. No popliteal cyst. Procedure Note Parrino, Aniyah Radha, MD, MD - 07/22/2024 EXAM: US LOWER EXTREMITY VENOUS DUPLEX BILATERAL LOCATION: [facility] DATE: 07/22/2024 INDICATION: chest pain, elevated dimer, , b l leg [ain worse inthe left COMPARISON: None. TECHNIQUE: Venous Duplex ultrasound of bilateral lower extremities withand without compression, augmentation and duplex. Color flow and spectralDoppler with waveform analysis performed. FINDINGS: Exam includes the common femoral, femoral, popliteal veins aswell as segmentally visualized deep calf veins and greater saphenous vein. RIGHT: No deep vein thrombosis. No superficial thrombophlebitis. Nopopliteal cyst. LEFT: No deep vein thrombosis. No superficial thrombophlebitis. Nopopliteal cyst. IMPRESSION: 1. No deep venous thrombosis in the bilateral lower extremities. us Noreen Bullard MD IMG US ORDERABLES Final Result * (ABNORMAL) Magnesium (07/22/2024 1:26 AM CDT) Pathologist [facility] [place] Magnesium 1.6(L) 1.7 - 2.3 mg/dL 07/22/2024 1:57 AM CDT [facility] Blood STRUCTURE OF LEFT UPPER LIMB / Unknown Venipuncture / Unknown 07/22/2024 1:26 AM CDT 07/22/2024 1:42 AM CDT us Noreen Bullard MD LAB - BLOOD ORDERABLES Final Re sult [facility] [address] [place] [address], [facility] * US Abdomen Complete (07/21/2024 11:03 PM CDT) Anatomical Region Laterality Modality Abdomen/Pelvis Ultrasound 07/21/2024 11:0 3 PM CDT Impressions 07/21/2024 11:47 PM CDT IMPRESSION: 1. ??Mild right hydronephrosis. 2. ??No visible cholelithiasis or biliary dilatation. Sonographic Ventura's sign negative. 3. ??Mild splenomegaly. Narrative 07/21/2024 11:47 PM CDT EXAM: US ABDOMEN COMPLETE LOCATION: [facility] DATE: 07/21/2024 INDICATION: 32 weeks preg with URQ pain. Please image liver, gallbladder, kidneys, bladder. Fetus had 8 8 BPP earlier today. COMPARISON: None. TECHNIQUE: Complete abdominal ultrasound. FINDINGS: GALLBLADDER: No visible cholelithiasis. Upper normal wall thickness. Sonographic Ventura's sign negative. BILE DUCTS: No biliary dilatation. The common duct measures 2.1 mm. LIVER: Grossly within normal limits where seen. RIGHT KIDNEY: Normal size. Mild hydronephrosis. LEFT KIDNEY: Normal size. No hydronephrosis. SPLEEN: Enlarged, 15 cm. PANCREAS: Partial observation by bowel gas. AORTA: Normal caliber where seen. IVC: Patent where seen. No visible ascites. Procedure Note Aniyah Bunn MD, MD - 07/21/2024 EXAM: US ABDOMEN COMPLETE LOCATION: [facility] DATE: 07/21/2024 INDICATION: 32 weeks preg with URQ pain. Please image liver, gallbladder,kidneys, bladder. Fetus had 8 8 BPP earlier today. COMPARISON: None. TECHNIQUE: Complete abdominal ultrasound. FINDINGS: GALLBLADDER: No visible cholelithiasis. Upper normal wall thickness.Sonographic Ventura's sign negative. BILE DUCTS: No biliary dilatation. The common duct measures 2.1 mm. LIVER: Grossly within normal limits where seen. RIGHT KIDNEY: Normal size. Mild hydronephrosis. LEFT KIDNEY: Normal size. No hydronephrosis. SPLEEN: Enlarged, 15 cm. PANCREAS: Partial observation by bowel gas. AORTA: Normal caliber where seen. IVC: Patent where seen. No visible ascites. IMPRESSION: 1. Mild right hydronephrosis. 2. No visible cholelithiasis or biliary dilatation. Sonographic Ventura'ssign negative. 3. Mild splenomegaly. Esther Laurent APRN, CNM [facility] US ORDERABLES Final R esult * Troponin T, High Sensitivity (07/21/2024 10:22 PM CDT) Troponin T, High Sensitivity <6 <=14 ng/L 07/21/2024 11:10 PM CDT [facility] Comment: Either a High Sensitivity Troponin T baseline (0 hours) value = 100 ng/L, or an increase in High Sensitivity Troponin T = 7 ng/L at 2 hours compared to 0 hours (2-0 hours), suggests myocardial injury, and urgent clinical attention is required. ?? If the 2-0 hours increase is <7 ng/L, a High Sensitivity Troponin T result above gender-specific reference ranges warrants further evaluation. Recommendations for further evaluation include correlation with clinical decision-making tool (e.g., HEART), a 3rd High Sensitivity Troponin T test 2 hours after the 2nd (a 20% change from baseline would represent concern), admission for observation, close PCC/cardiology follow-up, or urgent outpatient provocative testing. Blood STRUCTURE OF LEFT UPPER LIMB / Unknown Venipuncture / Unknown 07/21/2024 10:22 PM CDT 07/21/2024 10:43 PM CDT us Noreen Bullard MD LAB - BLOOD ORDERABLES Final Re sult [facility] [address] * (ABNORMAL) D dimer quantitative (07/21/2024 10:22 PM CDT) [facility] D-Dimer Quantitative 1.26(H) 0.00 - 0.50 ug/mL FEU 07/21/2024 11:40 PM CDT [facility] Blood STRUCTURE OF LEFT UPPER LIMB / Unknown Venipuncture / Unknown 07/21/2024 10:22 PM CDT 07/21/2024 10:43 PM CDT Narrative [facility] - 07/21/2024 11:40 PM CDT This D-dimer assay is intended for use in conjunction with a clinical pretest probability assessment model to exclude pulmonary embolism (PE) and deep venous thrombosis (DVT) in outpatients suspected of PE or DVT. The cut-off value is 0.50 ug/mL FEU. us Noreen Bullard MD LAB - BLOOD ORDERABLES Final Re sult Performing Organization Address [facility]/State/ZIP Co de Phone Number [facility] [address] [place] [address], [facility] * ECG 12-LEAD WITH MUSE (LHE) (07/21/2024 10:12 PM CDT) Systolic Blood Pressure mmHg RADIOLOGY RESULTS Diastolic Blood Pressure mmHg RADIOLOGY RESULTS Ventricular Rate 76 BPM RAD IOLOGY RESULTS Atrial Rate 76 BPM RADIOLOG Y RESULTS NE Interval 138 ms RADIOLOG Y RESULTS QRS Duration 70 ms RADIOLO GY RESULTS QT 384 ms RADIOLOGY RESULTS QTc 432 ms RADIOLOGY RESULTS P [place] 18 degrees RADIOLOGY RESULTS R AXIS 3 degrees RADIOLOGY RESULTS T [place] 61 degrees RADIOLOGY RESULTS Interpretation ECG Sinus rhythm with sinus arrhythmia Anterior infarct , age undetermined ST & T wave abnormality, consider lateral ischemia Abnormal ECG No previous ECGs available Confirmed by GEFABRIZIOK ??SILVIA BHATT LOC:JN ([id number]) on 07/22/2024 7:31:43 AM RADIOLOGY RESULTS 07/21/2024 10:1 2 PM CDT 07/22/2024 7:31 AM CDT us Noreen Bullard MD ECG ORDERABLES Edited Result - Final Performing Organization Address [facility] Co de Phone Number RADIOLOGY RESULTS * Extra Red Top Tube (LAB USE ONLY) (07/21/2024 8:13 PM CDT) Hold Specimen JIC 07/21/2024 9:31 PM CDT [facility] Blood BLOOD SPECIMEN / Unknown Venipuncture / Unknown 07/21/2024 8:13 PM CDT 07/21/2024 8:22 PM CDT us Esther ARANGOM LAB - BLOOD ORDERABLES Fi nal Result [facility] [address] [place] [address], [facility] * Lipase (07/21/2024 8:13 PM CDT) Lipase 22 13 - 60 U/L 07/21/2024 8:49 PM CDT [facility] Blood STRUCTURE OF RIGHT HAND / Unknown Venipuncture / Unknown 07/21/2024 8:13 PM CDT 07/21/2024 8:22 PM CDT Esther Laurent FATOU CNM LAB - BLOOD ORDERABLES Fi nal Result [facility] [address] [place] [address], [facility] * (ABNORMAL) Group B strep PCR (07/19/2024 7:25 PM CDT) Group B Strep PCR Positive( A) Negative 07/20/2024 6:18 PM CDT [facility] Comment:ALERT: Streptococcus agalactiae (Group B Streptococcus) has a high rate of resistance to clindamycin. Therefore, clindamycin is not recommended for treatment unless susceptibility testing has been performed. Swab STRUCTURE OF RECTOVAGINAL SEPTUM / Unknown Non-blood Collection / Unknown 07/19/2024 7:25 PM CDT 07/19/2024 7:32 PM CDT Narrative [facility] - 07/20/2024 6:18 PM CDT The Cepheid Xpert GBS LB Assay, performed on the [employer] computer?? [employer], is a qualitative in vitro diagnostic test designed to detect Group B Streptococcus (GBS) DNA from enriched vaginal/rectal swab specimens, using fully automated, real- time polymerase chain reaction (PCR) with fluorogenic detection of the amplified DNA. Xpert GBS LB Assay testing is indicated as an aid in determining GBS colonization status in antepartum women. This assay does not diagnose or monitor treatment for GBS infections. The Cepheid Xpert GBS LB Assay is intended for use in hospital, reference or state laboratory settings. The device is not intended for [id number] use. Oliva Pinzon MD LAB - MICRO GENERAL ORDERABLES Final Result [facility] Lab [address] [facility], [address] [place] [address], [place] * Fern Test for Rupture of Membranes (07/19/2024 7:23 PM CDT) Fern Crystallization No ferning present No ferning present JANAK 07/19/2024 8:11 PM CDT LABORATORY Amniotic fluid VAGINAL STRUCTURE / Unknown Non-blood Collection / Unknown 07/19/2024 7:23 PM CDT 07/19/2024 7:32 PM CDT Oliva Pinzon MD LAB - BODY FLUIDS ORDERABLES Fi nal Result LABORATORY [facility] [place] [facility] [address] [facility] (1st floor, no room number) [place] [address] * Hepatitis C Antibody (External Result) (01/25/2024 9:00 AM CDT) Hepatitis C Antibody (External) Nonreactive Nonreactive EXTERNAL LAB 01/25/2024 9:00 AM CDT Patient Reported LAB - HIM EXTERNAL RESULT Final Result EXTERNAL LAB External Lab * HIV-1 Antibody (External Result) (01/25/2024 9:00 AM CDT) HIV 1&2 Antibody (External) Nonreactive Nonreactive EXTERNAL LAB 01/25/2024 9:00 AM CDT Patient Reported LAB - HIM EXTERNAL RESULT Final Result EXTERNAL LAB External Lab from Last 3 Months or Most Recently Relevant to Health Maintenance Additional Health Concerns Active Problems Noted Date Diagnosed Date Patient expresses financial resource strain 03/23 Insurance [facility] [address] [place] [address] Advance Directives For more information, please contact: [phone] * Full Code (Latest Code Status on File) Date Activated Date Inactivated Comments 08/20/2024 8:01 PM 08/24/2024 3:14 PM All basic a nd advanced life-sustaining interventions are performed as appropriate Question Answer Comments Code status determined by: Discussion with patie nt/ legal decision maker * Full Code Date Activated Date Inactivated Comments 08/20/2024 9:04 AM 08/20/2024 8:01 PM All basic and advanced life-sustaining interventions are performed as appropriate Question Answer Comments Code status determined by: Discussion with patie nt/ legal decision maker * Full Code Date Activated Date Inactivated Comments 07/21/2024 10:32 PM 07/22/2024 2:47 PM All basic a nd advanced life-sustaining interventions are performed as appropriate Question Answer Comments Code status determined by: Discussion with patie nt/ legal decision maker Care Teams Dried Yeast Supervisor Relationship Specialty Start Date End Date Esther Laurent APRN [address] [place] [address] PCP - General hr administrator 07/21/24 No Ref-Primary, Physician 02/28/24 Farrukh Gaspar MD [address] [address] Physician hr administrator 02/28/[address] [facility] [place] [address] Baggage Smasher Dietitian 03/06/24 Tara Martin, [facility] Lead User Interface Designer 04/11/24 Farrukh Gaspar MD [address] [address] Assigned OBGYN Provider 04/13/24 Padmini Calderon DO [address] [address] Physician hr administrator 04/22/24 Padmini Calderon DO [address] [address] Assigned OBGYN Provider 07/14/24
--- OUTSIDE RECORDS SUMMARY | 2024-08-29 10:52 | XMS_ITS | Referral Summary ---
Author Organization [facility] Address [address] [place] [id number] Care Team Providers Care Project Superintendent Name Role Phone No Ref-Primary, Physician Unavailable Farrukh Gaspar MD Unavailable [phone] Unavailable Unavailab Tara Barbosa [facility] Unavailable Farrukh Gaspar MD Unavailable Padmini Calderon DO Unavailable Padmini Calderon DO Unavailable Esther Laurent APRN [facility] Primary Care Provider [phone] Encounters Date Type Department Care Team Description 08/20/2024 1:44 PM CDT Anesthesia Event [facility] [place] [address] Alexander Mina MD Johnson, Christopher S, MD 08/20/2024 Travel 08/18/2024 Travel 08/18/2024 12:15 PM CDT Office Visit [facility] [address] [phone] Jana Osei MD Hoover, Elizabeth, MD Insulin controlled gestational diabetes mellitus (GDM) in third trimester (Primary Dx); Multigravida of advanced maternal age in third trimester; Chronic hypertension in 08/18/2024 11:34 AM CDT - 08/18/2024 11:59 PM CDT Hospital Encounter [facility] [address] [phone] Jana Osei MD Hoover, Elizabeth, MD Chronic hypertension in ; with type 2 diabetes mellitus in third trimester; Polyhydramnios affecting in third trimester Discharge Disposition: Home or Self Care 08/14/2024 12:11 PM CDT - 08/14/2024 1:56 PM CDT Hospital Encounter [facility] [address] [phone] Pura Eaton APRN CNM Insulin controlled gestational diabetes mellitus (GDM) in third trimester (Primary Dx) Discharge Disposition: Home or Self Care 08/14/2024 Travel 08/14/2024 8:30 AM CDT Office Visit [facility] [address] [phone] Alyce Whitlock MD Sabol, Bethany, MD Chronic hypertension in (Primary Dx); with type 2 diabetes mellitus in third trimester; Polyhydramnios affecting in third trimester 08/14/2024 8:00 AM CDT - 08/14/2024 12:10 PM CDT Hospital Encounter [facility] [address] [phone] Alyce Whitlock MD Sabol, Bethany, MD with type 2 diabetes mellitus in second trimester Discharge Disposition: Home or Self Care 08/09/2024 10:19 PM CDT - 08/10/2024 12:39 AM CDT Hospital Encounter [facility] [address] [phone] Venus Valladares CNM Discharge Disposition: Home or Self Care 08/09/2024 Travel 08/07/2024 Travel 08/07/2024 3:30 PM CDT Office Visit [facility] [place] [address] [place] [phone] Alyce Whitlock MD with type 2 diabetes mellitus in third trimester (Primary Dx); Chronic hypertension in 08/07/2024 3:00 PM CDT - 08/07/2024 11:59 PM CDT Hospital Encounter [facility] [place] [address] [place] [phone] Alyce Whitlock MD with type 2 diabetes mellitus in second trimester Discharge Disposition: Home or Self Care 08/06/2024 2:30 PM CDT Virtual Visit [address] [phone] Teagan Mark NP Insulin controlled gestational diabetes mellitus (GDM) in third trimester (Primary Dx) 08/04/2024 Travel 08/04/2024 4:00 PM CDT Office Visit [facility] [place] [address] [place] [phone] Mohini Whitlock MD Contag, Stephen A, MD with type 2 diabetes mellitus in third trimester (Primary Dx); Chronic hypertension in ; Polyhydramnios affecting in third trimester 08/04/2024 3:30 PM CDT - 08/04/2024 11:59 PM CDT Hospital Encounter [facility] [address] [place] [phone] Mohini Whitlock MD Contag, Stephen A, MD with type 2 diabetes mellitus in second trimester Discharge Disposition: Home or Self Care 07/31/2024 Travel 07/31/2024 MyC Medical Advice [address] [phone] Teagan Mark NP 07/31/2024 3:30 PM CDT Office Visit [facility] [place] [address] [place] [phone] Dacia Alvarez MD with type 2 diabetes mellitus in third trimester (Primary Dx) 07/31/2024 3:00 PM CDT - 07/31/2024 11:59 PM CDT Hospital Encounter [facility] [address] [place] [phone] Dacia Alvarez MD with type 2 diabetes mellitus in third trimester Discharge Disposition: Home or Self Care 07/28/2024 Orders Only [facility] [address] [place] [phone] Nasreen Dumont RN with type 2 diabetes mellitus in third trimester (Primary Dx) 07/24/2024 Travel 07/24/2024 3:30 PM CDT Office Visit [facility] [address] [place] [phone] Dacia Alvarez MD with type 2 diabetes mellitus in third trimester (Primary Dx) 07/24/2024 3:00 PM CDT - 07/24/2024 11:59 PM CDT Hospital Encounter [facility] [address] [place] [phone] Dacia Alvarez MD with type 2 diabetes mellitus in second trimester Discharge Disposition: Home or Self Care 07/23/2024 MyC Medical Advice [address] [phone] Jus Peter MA 07/23/2024 MyC Medical Advice [address] [phone] Jus Peter MA 07/23/2024 11:30 AM CDT Virtual Visit [address] [place] [phone] Teagan Mark NP Insulin controlled gestational diabetes mellitus (GDM) in second trimester 07/21/2024 7:46 PM CDT - 07/22/2024 12:37 PM CDT Hospital Encounter [facility] [address] [place] [address] Esther Laurent APRN CNM Discharge Disposition: Left Against Medical Advice 07/21/2024 Travel 07/21/2024 4:00 PM CDT Office Visit [facility] [place] [address] [place] [phone] Dacia Alvarez MD with type 2 diabetes mellitus in third trimester (Primary Dx) 07/21/2024 3:30 PM CDT - 07/21/2024 7:45 PM CDT Hospital Encounter [facility] [place] [address] [place] [phone] Dacia Alvarez MD with type 2 diabetes mellitus in second trimester Discharge Disposition: Home or Self Care 07/19/2024 Telephone [facility] [address] [place] [phone] Oliva Pinzon MD 07/19/2024 5:54 PM CDT - 07/19/2024 9:45 PM CDT Hospital Encounter [facility] [address] [place] [address] Isabelle Tariq MD Bayer, Chelsea, MD Discharge Disposition: Home or Self Care 07/17/2024 Travel 07/17/2024 9:15 AM CDT Office Visit [facility] [place] [address] [place] [phone] Alyce Whitlock MD Insulin controlled gestational diabetes mellitus (GDM) in third trimester (Primary Dx); Chronic hypertension in 07/17/2024 8:33 AM CDT - 07/17/2024 11:59 PM CDT Hospital Encounter [facility] [address] [place] [address] Alyce Whitlock MD Chronic hypertension in Discharge Disposition: Home or Self Care 07/10/2024 Travel 07/10/2024 3:30 PM CDT Office Visit [facility] [place] [address] [place] [phone] Dacia Alvarez MD with type 2 diabetes mellitus in third trimester (Primary Dx) 07/10/2024 3:00 PM CDT - 07/10/2024 11:59 PM CDT Hospital Encounter [facility] [place] [address] [place] [phone] Dacia Alvarez MD with type 2 diabetes mellitus in second trimester; Polyhydramnios affecting Discharge Disposition: Home or Self Care 07/09/2024 MyC Medical Advice [address] [phone] Jus Peter MA 07/09/2024 2:30 PM CDT Virtual Visit [address] [phone] Teagan Mark NP Insulin controlled gestational diabetes mellitus (GDM) in third trimester (Primary Dx) 07/04/2024 Travel 07/04/2024 4:00 PM CDT Office Visit [facility] [place] [address] [place] [phone] Jana Osei MD Insulin controlled gestational diabetes mellitus (GDM) in third trimester (Primary Dx) 07/04/2024 3:22 PM CDT - 07/04/2024 11:59 PM CDT Hospital Encounter [facility] [address] [place] [phone] Jana Osei MD with type 2 diabetes mellitus in second trimester; Polyhydramnios affecting Discharge Disposition: Home or Self Care 06/25/2024 Travel 06/25/2024 MyC Medical Advice [address] [place] [phone] Jus Peter MA 06/25/2024 MyC Medical Advice [address] [place] [phone] Jus Peter MA 06/25/2024 4:00 PM CDT Office Visit [facility] [place] [address] [place] [phone] Giselle Diallo MD Nashif, Sereen, MD with type 2 diabetes mellitus in third trimester (Primary Dx); with type 2 diabetes mellitus in second trimester 06/25/2024 3:25 PM CDT - 06/25/2024 11:59 PM CDT Hospital Encounter [facility] [place] [address] [place] [phone] Giselle Diallo MD with type 2 diabetes mellitus in second trimester; Polyhydramnios affecting Discharge Disposition: Home or Self Care 06/25/2024 11:30 AM CDT Virtual Visit [address] [place] [phone] Teagan Mark NP Insulin controlled gestational diabetes mellitus (GDM) in second trimester (Primary Dx) 06/20/2024 Travel 06/20/2024 8:30 AM CDT Office Visit [facility] [place] [address] [place] [phone] Alyce Whitlock MD with type 2 diabetes mellitus in second trimester (Primary Dx); Polyhydramnios affecting 06/20/2024 7:54 AM CDT - 06/20/2024 11:59 PM CDT Hospital Encounter [facility] [place] [address] [place] [phone] Alyce Whitlock MD Chronic hypertension in Discharge Disposition: Home or Self Care 06/15/2024 Travel 06/13/2024 Travel 06/13/2024 9:15 AM CDT Office Visit [facility] [address] [place] [address] Padmini Calderon DO Supervision of high-risk of elderly multigravida (Primary Dx) 06/11/2024 11:30 AM CDT Virtual Visit [address] [place] [phone] Teagan Mark NP Insulin controlled gestational diabetes mellitus (GDM) in second trimester (Primary Dx) 06/09/2024 MyC Medical Advice [address] [place] [phone] Teagan Mark NP 06/08/2024 Travel from Last 3 Months Allergies Active Allergy Reactions Criticality Noted Date Comments Grass Pollen(K-O-R-T-Swt Eyal) Itching,Difficulty breathing High 04/17/2022 [place] pollens Medications blood glucose monitoring (NO BRAND [...] 4 times per day. 200 each 11 02/29/20 24 Active acetone urine (KETOSTIX) test [...] mouth daily 60 capsule 2 04/10/20 24 Discontinued(St op at Discharge) insulin detemir (LEVEMIR PEN) 100 UNIT/ML penIndications: Insulin controlled gestational diabetes mellitus (GDM) in second trimester Take at Bedtime as directed, Max of 60 units daily 30 mL 2 04/16/20 24 Discontinued(St op at Discharge) labetalol (NORMODYNE) 100 MG tablet Take 300 mg by mouth 2 times daily. 07/17/20 24 Discontinued(Me d Rec(No AVS / No eCancel)) acetaminophen (TYLENOL) 325 MG tablet Take 325-650 mg by mouth every 6 hours as needed for mild pain. Discontinued labetalol (NORMODYNE) 300 MG tabletIndicatio ns:Hypertension Take 400 mg by mouth 2 times daily. 07/31/20 Discontinued(St op at Discharge) labetalol (NORMODYNE) 200 MG tablet Take 300 mg by mouth 2 times daily. 08/07/20 24 Discontinued(Me d Rec(No AVS / No eCancel)) clindamycin (CLEOCIN) 2 % vaginal cream Place vaginally at bedtime. Discontinued(Me d Rec(No AVS / No eCancel)) acetaminophen (TYLENOL) 325 MG tabletIndicatio ns:S/P section,Uterine rupture during labor Take 3 tablets (975 mg) by mouth every 6 hours as needed for mild pain. 08/22/20 24 Discontinued(St op at Discharge) ibuprofen (ADVIL/MOTRIN) 800 MG tabletIndicatio ns:S/P section,Uterine rupture during labor Take 1 tablet (800 mg) by mouth every 6 hours. 08/22/20 24 Discontinued ferrous sulfate (FEROSUL) 325 (65 Fe) MG tabletIndicatio ns:Uterine rupture during labor Take 1 tablet (325 mg) by mouth daily (with breakfast). 90 tablet 08/22/20 24 Discontinued Active Problems Problem Noted Date Diagnosed [...] Gestational diabetes 09/21/2012 024 Overview (05/29/2024): Diet-controlled Immunizations Name Administration Dates Next Due COVID-19 MONOVALENT 12+ (Pfizer) 06/18/2021,04/22 Dtap, 5 Pertussis Antigens (DAPTACEL) ,08/05/1991,03/18/1991,1988,1989,1989 Flu, Unspecified 09/08/2003 HepB, Unspecified 02/22/2001,12/07/2000,10/03/20 00 Influenza (IIV3) PF 07/10/2012 Influenza Vaccine >6 months,quad, PF 12/16/2020 MMR 12/07/2000 Poliovirus, inactivated (IPV) 02/03/1992 ,03/18/1991,1989,1988,1989 TDAP (Adacel,Boostrix) 06/13/2024,06/02/2022, Td (Adult), Adsorbed 10/03/2000 Social History Tobacco Use Types Packs/Day Years Used Date Smoking Tobacco: Never Smokeless Tobacco: Never Tobacco Cessation:Counseling Given: Not Answered Alcohol Use Standard Drinks/Week Comments Never 0 (1 standard drink = 0.6 oz pur e alcohol) PHQ-2 Answer Date Recorded PHQ-2 Score 1 06/13/2024 [place] Depression Scale Answer Date Recorded Last EPDS [...] in an abandoned building, in an overnight correction, or couch-surfing.) Yes 08/20/2024 Are you worried [...] on file 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 Gender Identity Not on file Sexual Orientation Not on file Last Filed Vital Signs Vital Sign Reading Time Taken Comments Blood Pressure 142/65 08/24/2024 9:00 AM 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 Author Create an action plan to increase financial stability Care Plan Patient expresses financial resource strain No Patt Gautam, [facility] Note: Barriers: Lack of housing Strengths: Engaged in care coordination Patient expressed understanding of goal: YES Action steps to achieve this goal: 1. I will review the resources provided by early breastfeeding care specialist 2. I will I will contact my care team with questions, concerns, or support needs. 3. I will use the clinic as a resource, and I understand I can contact my clinic with 24/7 after hours services available. Statistician will remain available as needed. Procedures Procedure [...] CDT GLUCOSE BY METER POCT Routine 08/20/2024 [facility] BPP SINGLE Routine 08/18/2024 12:22 PM CDT Chronic hypertension in with type 2 diabetes mellitus in third trimester Polyhydramnios affecting in third trimester PROTEIN RANDOM URINE STAT 08/14/2024 12:57 PM CDT COMPREHENSIVE METABOLIC PANEL STAT 08/14/2024 12:38 PM CDT CBC WITH PLATELETS STAT 08/14/2024 12 :38 PM CDT [facility] US COMPREHENSIVE SINGLE F/U Routine 08/14/2024 8:43 AM CDT with type 2 diabetes mellitus in second trimester WET PREPARATION Routine 08/09/2024 11:36 PM CDT ROUTINE UA WITH MICROSCOPIC REFLEX TO CULTURE Routine 08/09/2024 11:36 PM CDT RUPTURE OF MEMBRANES BY ROM PLUS STAT 08/09/2024 10:46 PM CDT [facility] BPP SINGLE Routine 08/07/2024 3:33 PM CDT with type 2 diabetes mellitus in second trimester [facility] BPP SINGLE Routine 08/04/2024 3:57 PM CDT with type 2 diabetes mellitus in second trimester [facility] BPP SINGLE Routine 07/31/2024 3:27 PM CDT with type 2 diabetes mellitus in third trimester [facility] BPP SINGLE Routine 07/24/2024 3:43 PM CDT with type 2 diabetes mellitus in second trimester GLUCOSE BY METER Routine 07/22/2024 9:36 AM CDT ECHO COMPLETE Routine 07/22/2024 9:30 AM CDT GLUCOSE BY METER Routine 07/22/2024 8:50 AM CDT GLUCOSE BY METER Routine 07/22/2024 8:27 AM CDT CBC WITH PLATELETS & DIFFERENTIAL [...] RANDOM URINE STAT 07/21/2024 7:58 PM CDT [facility] BPP SINGLE Routine 07/21/2024 3:47 PM [...] OF MEMBRANES STAT 07/19/2024 7:23 PM CDT [facility] US COMPREHENSIVE SINGLE F/U Routine 07/17/2024 9:03 AM CDT Chronic hypertension in [facility] BPP SINGLE Routine 07/10/2024 3:34 PM CDT with type 2 diabetes mellitus in second trimester Polyhydramnios affecting [facility] BPP SINGLE Routine 07/04/2024 4:12 PM CDT with type 2 diabetes mellitus in second trimester Polyhydramnios affecting [facility] BPP SINGLE Routine 06/25/2024 3:42 PM CDT with type 2 diabetes mellitus in second trimester Polyhydramnios affecting [facility] COMPREHENSIVE SINGLE F/U Routine 06/20/2024 8:56 AM [...] - 15.7 g/dL 08/22/2024 10:18 AM CDT [facility] Blood BLOOD SPECIMEN / Unknown Venipuncture / Unknown 08/22/2024 10:12 AM CDT 08/22/2024 10:16 AM CDT Nuria Macariokinza LAINEZ [facility] - BLOOD ORDERABLES Final Result [facility] [address] [place] [address], [facility] * CTA Abdomen Pelvis with Contrast (08/21/2024 3:12 AM CDT) Anatomical Region Laterality Modality Abdomen/Pelvis, SUBRAD IR [place] OCEDURE, UMP CT CTA, RAD CT Computed [...] EXAM: CTA ABDOMEN PELVIS WITH CONTRAST LOCATION: [facility] DATE: 08/21/2024 INDICATION: Repeat today at 6pm. Uterine rupture with a right broad ligament hematoma. Gel foam used across uterine defect after it was closed. Pt with poor pain control after surgery, hemoglobin dropping as expected and vitals stable. COMPARISON: None. TECHNIQUE: CT angiogram abdomen pelvis during arterial phase of injection of IV contrast. 2D and 3D MIP reconstructions were performed by the blood bank technologist. Dose reduction techniques were used. CONTRAST: [...] No discrete fluid collection seen. Procedure Note Schaar, Timoteo Kenrick, MD - 08/21/2024 EXAM: CTA ABDOMEN PELVIS WITH CONTRAST LOCATION: [facility] DATE: 08/21/2024 INDICATION: Repeat today at 6pm. [...] Medication Administration Time: 08/20/2024 1:44 PM FOR [facility] ([facility]) ONLY: ?? Pain Team Contact information: please page the Pain Team Via DLS. Search Pain. During daytime hours, please page the attending first. At night please page the resident first. us Obinna Gautam MD [place] ANESTHESIA Final R esult * Glucose by meter (08/20/2024 11:28 AM CDT) Only the most recent of7 resultswithin the time period is included. [facility] Signature GLUCOSE BY METER POCT 73 70 - 99 mg/dL 08/20/2024 11:34 AM T [facility] POCT RESULTS Blood, Capillary BLOOD SPECIMEN / Unknown 08/20/2024 11:28 AM CDT 08/20/2024 11:34 AM CDT Teresa Romero [facility] - BEAKER POCT Final Result [facility] POCT RESULTS [address] [place] [address] * (ABNORMAL) UA with Microscopic reflex to Culture (08/20/2024 10:02 AM CDT) Only the most recent of3 resultswithin the time period is included. Color Urine Yellow Colorless, Straw, Light Yellow, Yellow 08/20/2024 10:27 AM T [facility] Appearance Urine Turbid(A) Clear 08/20/20 24 10:27 AM T [facility] Glucose Urine Negative Negative mg/dL 08/20/2024 10:27 [facility] Bilirubin Urine Negative Negative 10:27 [facility] Ketones Urine Negative Negative mg/dL 08/20/2024 10:27 AM [facility] Specific [place] Urine 1.026 1.001 - 1.030 08/20/2024 10:27 [facility] Blood Urine Negative Negative 08/20/2024 10:27 AM [facility] pH Urine 6.5 5.0 - 7.0 08/20/2024 10:27 AM [facility] Protein Albumin Urine 20(A) Negative mg/dL 08/20/2024 10:27 AM [facility] Urobilinogen Urine <2.0 <2.0 mg/dL 08/20/2024 10:27 AM [facility] Nitrite Urine Negative Negative 08/20/2024 10:27 AM [facility] Leukocyte Esterase Urine 75 [place]/uL(A) Negative 08/20/2024 10:27 AM [facility] Bacteria Urine Few(A) None Seen /HPF 08/20/2024 10:27 AM [facility] Mucus Urine Present(A) None Seen /LPF 08/20/2024 10:27 AM [facility] RBC Urine <1 <=2 /HPF 08/20/2024 10:27 AM [facility] WBC Urine 2 <=5 /HPF 08/20/2024 10:27 AM [facility] Squamous Epithelials Urine 27(H) <=1 /HPF 08/20/2024 10:27 AM [facility] Urine MID-STREAM URINE SPECIMEN / Unknown Non-blood Collection / Unknown 08/20/2024 10:02 AM CDT 08/20/2024 10:10 AM CDT Narrative [facility] - 08/20/2024 10:27 AM T Urine Culture not indicated Teresa [facility] - URINE ORDERABLES Final Res ult [facility] [address] [place] [address], [facility] * Protein random urine (08/20/2024 10:02 AM CDT) Only the most recent of3 resultswithin the time period is included. Total Protein Urine mg/dL 27.3 mg/dL 08/20/2024 10:33 AM CDT [facility] Comment:The reference ranges have not been established in urine protein. The results should be integrated into the clinical context for interpretation. Total Protein Urine mg/mg Creat 0.13 0.00 - 0.20 mg/mg Cr 08/20/2024 10:33 AM CDT [facility] Creatinine Urine mg/dL 212.0 mg/dL 08/20/2024 10:33 AM CDT [facility] Comment:The reference ranges have not been established in urine creatinine. The results should be integrated into the clinical context for interpretation. Urine URETHRAL STRUCTURE / Unknown Non-blood Collection / Unknown 08/20/2024 10:02 AM CDT 08/20/2024 10:11 AM CDT Teresa [facility] - URINE ORDERABLES Final Res ult [facility] [address] [place] [address], [facility] * Urine Drug Screen Panel (08/20/2024 10:02 AM CDT) Amphetamines Urine Screen Negative Screen Negative 08/21/2024 2:20 PM T [facility] Comment:Cutoff for a negativ e amphetamine is less than 500 ng/mL. Barbituates Urine Screen Negative Screen Negative 08/21/2024 2:20 PM CDT [facility] Comment:Cutoff for a negativ e barbiturate is less than 200 ng/mL. Benzodiazepine Urine Screen Negative Screen Negative 08/21/2024 2:20 PM CDT [facility] Comment:Cutoff for a negativ e benzodiazepine is less than 100 ng/mL. Cannabinoids Urine Screen Negative Screen Negative 08/21/2024 2:20 PM CDT [facility] Comment:Cutoff for a negativ e cannabinoid is less than 50 ng/mL. Cocaine Urine Screen Negative Screen Negative 08/21/2024 2:20 PM CDT [facility] Comment:Cutoff for a negativ e cocaine is less than 300 ng/mL. Fentanyl Qual Urine Screen Negative Screen Negative 08/21/2024 2:20 PM CDT [facility] Comment:Cutoff for negative fentanyl is less than 5 ng/mL. Opiates Urine Screen Negative Screen Negative 08/21/2024 2:20 PM CDT [facility] Comment:Cutoff for a negativ e opiate is less than 300 ng/mL. PCP Urine Screen Negative Screen Negative 08/21/2024 2:20 PM CDT [facility] Comment:Cutoff for a negativ e PCP is less than 25 ng/mL. Urine URETHRAL STRUCTURE / Unknown Non-blood Collection / Unknown 08/20/2024 10:02 AM CDT 08/20/2024 10:11 AM CDT Nuria Hewitt APRN CN LAB - URINE ORDERABLES Final Result Performing Organization Address [facility]/ZIP Az de Phone Number [facility] [address] [place] [address], [facility] * Hemoglobin A1c (08/20/2024 9:14 AM CDT) Only the most recent of2 resultswithin the time period is included. [facility] Estimated Average Glucose 105 <117 mg/dL 08/20/2024 10:03 AM CDT [facility] Hemoglobin A1C 5.3 <5.7 % 08/20/2024 10:03 AM CDT [facility] Comment: Normal <5.7% Prediabetes 5.7-6.4% ?? Diabetes 6.5% or higher Note: Adopted from ADA consensus guidelines. Blood BLOOD SPECIMEN / Unknown Venipuncture / Unknown 08/20/2024 9:14 AM CDT 08/20/2024 9:26 AM CDT Teresa ARANGO LAB - BLOOD ORDERABLES Final Res ult [facility] [address] [place] [address], [place] * (ABNORMAL) Comprehensive Metabolic Panel (08/20/2024 9:13 AM CDT) Only the most recent of4 resultswithin the time period is included. [facility] Signature Sodium 136 135 - 145 mmol/L 08/20/2024 9:48 AM [facility] Potassium 3.6 3.4 - 5.3 mmol/L 08/20/2024 9:48 AM [facility] Carbon Dioxide (CO2) 19(L) 22 - 29 mmol/L 08/20/2024 9:48 AM [facility] Anion Gap 12 7 - 15 mmol/L 08/20/2024 9:48 AM [facility] Urea Nitrogen 5.6(L) 6.0 - 20.0 mg/dL 08/20/2024 9:48 AM [facility] Creatinine 0.49(L) 0.51 - 0.95 mg/dL 08/20/2024 9:48 AM [facility] GFR Estimate >90 >60 mL/min/1.7 3m2 08/20/2024 9:48 AM [facility] Comment:eGFR calculated us2020 CKD-EPI equation. Calcium 8.4(L) 8.8 - 10.4 mg/dL 08/20/2024 9:48 AM [facility] Comment:Reference intervals for this test were updated on 05/06/2024 to reflect our healthy population more accurately. There may be differences in the flagging of prior results with similar values performed with this method. Those prior results can be interpreted in the context of the updated reference intervals. Chloride 105 98 - 107 mmol/L 08/20/2024 9:48 AM [facility] Glucose 92 70 - 99 mg/dL 08/20/2024 9:48 AM [facility] Alkaline Phosphatase 102 40 - 150 U/L 08/20/2024 9:48 AM [facility] AST 29 0 - 45 U/L 08/20/2024 9:48 AM [facility] ALT 13 0 - 50 U/L 08/20/2024 9:48 AM [facility] Protein Total 6.0(L) 6.4 - 8.3 g/dL 08/20/2024 9:48 AM [facility] Albumin 3.1(L) 3.5 - 5.2 g/dL 08/20/2024 9:48 AM CDT [facility] Bilirubin Total 0.4 <=1.2 mg/dL 08/20/2024 9:48 AM CDT [facility] Blood BLOOD SPECIMEN / Unknown Venipuncture / Unknown 08/20/2024 9:13 AM CDT 08/20/2024 9:26 AM CDT Teresa ARANGO LAB - BLOOD ORDERABLES Final Res ult [facility] [address] [facility] [place] [address], [facility] * (ABNORMAL) CBC with platelets (08/20/2024 9:13 AM CDT) Only the most recent of3 resultswithin the time period is included. WBC Count 9.4 4.0 - 11.0 10e3/uL 08/20/2024 9:31 AM [facility] RBC Count 4.33 3.80 - 5.20 10e6/uL 08/20/2024 9:31 AM CDT [facility] Hemoglobin 11.2(L) 11.7 - 15.7 g/dL 08/20/2024 9:31 AM CDT [facility] Hematocrit 33.6(L) 35.0 - 47.0 % 08/20/2024 9:31 AM [facility] MCV 78 78 - 100 fL 08/20/2024 9:31 AM T [facility] MCH 25.9(L) 26.5 - 33.0 pg 08/20/2024 9:31 AM CDT [facility] MCHC 33.3 31.5 - 36.5 g/dL 08/20/2024 9:31 AM CDT [facility] RDW 12.8 10.0 - 15.0 % 08/20/2024 9:31 AM [facility] Platelet Count 199 150 - 450 10e3/uL 08/20/2024 9:31 AM T [facility] Blood BLOOD SPECIMEN / Unknown Venipuncture / Unknown 08/20/2024 9:13 AM CDT 08/20/2024 9:26 AM CDT Teresa ARANGO LAB - BLOOD ORDERABLES Final Res ult [facility] [address] [facility] [address] [address] * Adult Type and Screen (08/20/2024 9:11 AM CDT) Only the most recent of2 resultswithin the time period is included. ABO/RH(D) O POS 08/20/2024 9:05 AM CDT [facility] Antibody Screen Negative Negative 08/20/2024 9:05 AM CDT [facility] SPECIMEN EXPIRATION DATE [id number] 08/20/2024 9:05 AM CDT [facility] Blood BLOOD SPECIMEN / Unknown Venipuncture / Unknown 08/20/2024 9:11 AM CDT 08/20/2024 9:26 AM CDT Teresa ARANGO LAB - BLOOD BANK TEST ORDER Cristiana l Result Performing Organization Address [facility] Co de Phone Number [facility] [address] * Treponema Abs w Reflex to RPR and Titer (08/20/2024 9:11 AM CDT) Treponema Antibody Total Nonreactive Nonreactive 08/20/2024 3:35 PM CDT [facility] Blood BLOOD SPECIMEN / Unknown Venipuncture / Unknown 08/20/2024 9:11 AM CDT 08/20/2024 9:26 AM CDT Teresa ARANGO LAB - BLOOD ORDERABLES Final Res ult [facility] [address] [facility], Room [address] * Glucose by meter POCT (08/20/2024) [...] ? Study Date: ??08/18/2024 11:56am Pat. NO: ??[id number] ?Referring ??: ESTHER LAURENT Site: ? Donor Floor Technician: Nathalie Harman RDMS : ??1990 ?Age: ?? [...] MCKEON Study Date: 08/18/2024 11:56am Pat. NO: [id number] Referring MD: ESTHER LAURENT Site: Donor Floor Technician: Nathalie Harman RDMS : 1990 Age: 34 ----- INDICATION ----- Chronic hypertension - on Labetalol Type 2 diabetes - on insulin History of PPROM at 36 weeks Echogenic bowel seen on prior exam AMA METHOD ----- Transabdominal ultrasound examination. View: Sufficient ----- Mcmahan . Number of fetuses: 1 DATING ----- DateDetailsGest. age CARLOS LMP 437 w + 5 d 09/03/2024 Previous U/S [...] BPP is 05/29. us Ilene Alegria MD [facility] US ORDERABLES Edited Re sult - Final * [facility] US Comprehensive Single F/U (08/14/2024 8:43 AM CDT) [...] ? Study Date: ??08/14/2024 8:06am Pat. NO: ??[id number] ?Referring ??: ESTHER LAURENT Site: ? Donor Floor Technician: Sandhya Barrow RDMS : ??1990 ?Age: ?? [...] lb 13 ?oz EFW by ? Hadlock ([id number]) Head / Face / Neck Biometry: Sap Trainer ?6.2 ? mm CM ? 6.6 ? mm ANATOMY ----- The following structures appear normal: Head / Neck ? Cranium. Head size. Head shape. Lateral ventricles. Midline falx. Cavum septi pellucidi. Cerebellum. Cisterna magna. Thalami. Face ? Lips. Profile. Nose. Heart / Thorax ?4-chamber view. RVOT view. LVOT view. 8-fcbqci-rxzexvl view. ? Diaphragm. Abdomen ? Stomach. Kidneys. [...] to triage for evaluation. 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 Procedure Note Ilene Alegria MD - 08/14/2024 Comp Follow Up ----- Pat. Name: ROLA MCKEON Study Date: 08/14/2024 8:06am Pat. NO: [id number] Referring MD: ESTHER LAURENT Site: Donor Floor Technician: Sandhya Barrow RDMS : 1990 Age: 34 [...] EFW (lb,oz) 6 lb 13oz EFW by Hadlock([id number]) Head / Face / Neck Biometry: Sap Trainer 6.2mm CM 6.6mm ANATOMY ----- The following structures appear normal: Head / Neck Cranium. Head size. Head shape.Lateral ventricles. Midline falx. Cavum septi pellucidi. Cerebellum.Cisterna magna. Thalami. Face Lips. Profile. Nose. Heart / Thorax 4-chamber view. RVOT view. LVOT view.2-qhxdlz-xyfsuyg view. Diaphragm. Abdomen Stomach. Kidneys. Bladder. Spine [...] as follows: - Chronic hypertension on medications: 59p0m-80g7l - Chronic hypertension on medications requiring ongoing doseescalation/suboptimal control: 18a6q-22z4l If she is diagnosed with superimposed preeclampsia [...] electronic medical record, andcommunicating with other health care transition mgr and/or carecoordination. IMPRESSION ----- 1. Mcmahan at 36w 1d gestational age. 2. None of the anomalies commonly detected by ultrasound were evident inthe limited anatomic survey as described above. 3. Growth parameters and estimated weight were appropriate forgestational age. 4. There is mild polyhydramnios with an JOHN of 28cm. 5. The BPP was 8/8. Dacia Alvarez MD [facility] US ORDERABLES Edited Re sult - Final * (ABNORMAL) Wet preparation (08/09/2024 11:36 PM CDT) Only the most recent of2 resultswithin the time period is included. Trichomonas Absent Absent JANAK 08/09/2024 11:57 PM CDT [facility] Yeast Present(A) Absent JANAK 08/09/2024 11:57 PM CDT [facility] Clue Cells Present(A) Absent JANAK 08/09/2024 11:57 PM CDT [facility] WBCs/high power field 3+(A) None JANAK 08/09/2024 11:57 PM CDT [facility] Swab VAGINAL STRUCTURE / Unknown Non-blood Collection / Unknown 08/09/2024 11:36 PM CDT 08/09/2024 11:44 PM CDT Venus Valladares [facility] LAB - MICRO GENERAL ORDERA BLES Final Result [facility] [address] [facility] [place] [address], [facility] * Rupture of Membranes by ROM Plus (08/09/2024 10:46 PM CDT) Only the most recent of2 resultswithin the time period is included. Rupture of Membranes by ROM Plus Negative Negative, Invalid, Suggest Repeat JANAK 08/09/2024 11:25 PM CDT [facility] Swab VAGINAL STRUCTURE / Unknown Non-blood Collection / Unknown 08/09/2024 10:46 PM CDT 08/09/2024 10:50 PM CDT Narrative [facility] - 08/09/2024 11:25 PM CDT Lot#: [id number] ? Exp: 01/2027 It is recommended that the tests to detect rupture of the amniotic membranes should not be used without other clinical assessments to make clinical patient management decision. Venus Valladares CNM LAB - BODY FLUIDS ORDERABL ES Final Result [facility] [address] [facility] [place] [place] [address], [facility] * ECHO COMPLETE (07/22/2024 9:30 AM CDT) LVEF 60-65% CARDIOLOGY RESULTS Anatomical Region Laterality Modality Ultrasound 07/22/2024 9:10 AM CDT Narrative 07/22/2024 11:02 AM CDT [id number]^CHARY^NOREEN^[place] [address] Name: ROLA MCKEON : 1990 Study Date: 07/22/2024 09:10 AM Age: 34 yrs Gender: Female Patient Location: [facility] Reason For Study: Chest Pain Ordering Physician: [...] Procedure Note Haider Ellis MD - 07/22/2024 [id number]^CHARY^NOREEN^[place] [address] Name: ROLA MCKEON : 1990 Study Date: 07/22/2024 09:10 AM Age: 34 yrs Gender: Female Patient Location: [facility] Reason For Study: Chest Pain Ordering Physician: [...] platelets and differential (07/22/2024 7:28 AM CDT) [facility] WBC Count 7.0 4.0 - 11.0 10e3/uL [...] NRBCs 0.0 10e3/uL 07/22/2024 8:17 AM CDT [facility] Blood STRUCTURE OF LEFT HAND / Unknown Venipuncture / Unknown 07/22/2024 7:28 AM CDT 07/22/2024 7:51 AM CDT Esther Laurent FOLDER GLUER OPERATOR CNM LAB - BLOOD ORDERABLES Fi nal Result [facility] [address] * US Lower Extremity Venous Duplex Bilateral (07/22/2024 5:08 AM CDT) Anatomical Region Laterality Modality Vascular, Thigh, Leg Ultrasound 07/22/2024 5:08 AM CDT Impressions 07/22/2024 5:18 AM CDT IMPRESSION: 1. ??No deep venous thrombosis in the bilateral lower extremities. Narrative 07/22/2024 5:18 AM CDT EXAM: US LOWER EXTREMITY VENOUS DUPLEX BILATERAL LOCATION: [facility] DATE: 07/22/2024 INDICATION: chest pain, elevated [...] superficial thrombophlebitis. No popliteal cyst. Procedure Note Aniyah Bunn MD, MD - 07/22/2024 EXAM: US LOWER EXTREMITY VENOUS DUPLEX BILATERAL LOCATION: [facility] DATE: 07/22/2024 INDICATION: chest pain, elevated [...] * (ABNORMAL) Magnesium (07/22/2024 1:26 AM CDT) [facility] Magnesium 1.6(L) 1.7 - 2.3 mg/dL 07/22/2024 1:57 AM CDT [facility] Blood STRUCTURE OF LEFT UPPER LIMB / Unknown Venipuncture / Unknown 07/22/2024 1:26 AM CDT 07/22/2024 1:42 AM CDT us Noreen Bullard MD LAB - BLOOD ORDERABLES Final Re sult [facility] [address] [place] [id number], [facility] * US Abdomen Complete (07/21/2024 11:03 PM CDT) Anatomical Region Laterality Modality Abdomen/Pelvis Ultrasound 07/21/2024 11:0 3 PM CDT Impressions 07/21/2024 11:47 PM CDT IMPRESSION: 1. ??Mild right hydronephrosis. 2. ??No visible cholelithiasis or biliary dilatation. Sonographic Ventura's sign negative. 3. ??Mild splenomegaly. Narrative 07/21/2024 11:47 PM CDT EXAM: US ABDOMEN COMPLETE LOCATION: [facility] DATE: 07/21/2024 INDICATION: 32 weeks preg [...] - 07/21/2024 EXAM: US ABDOMEN COMPLETE LOCATION: [facility] DATE: 07/21/2024 INDICATION: 32 weeks preg [...] 3. Mild splenomegaly. Esther Laurent APRN, CNM [facility] US ORDERABLES Final R esult * Troponin T, High Sensitivity (07/21/2024 10:22 PM CDT) Troponin T, High Sensitivity <6 <=14 ng/L 07/21/2024 11:10 PM CDT [facility] Comment: Either a High Sensitivity Troponin [...] 10:22 PM CDT 07/21/2024 10:43 PM CDT Noreen Bullard MD LAB - BLOOD ORDERABLES Final Re sult [facility] [address] * (ABNORMAL) D dimer quantitative (07/21/2024 10:22 PM CDT) D-Dimer Quantitative 1.26(H) 0.00 - 0.50 ug/mL FEU 07/21/2024 11:40 PM CDT [facility] Blood STRUCTURE OF LEFT UPPER LIMB / Unknown Venipuncture / Unknown 07/21/2024 10:22 PM CDT 07/21/2024 10:43 PM CDT Narrative [facility] - 07/21/2024 11:40 PM CDT This D-dimer assay is intended for use in conjunction with a clinical pretest probability assessment model to exclude pulmonary embolism (PE) and deep venous thrombosis (DVT) in outpatients suspected of PE or DVT. The cut-off value is 0.50 ug/mL FEU. us Noreen Bullard MD LAB - BLOOD ORDERABLES Final Re sult Performing Organization Address City/[facility]/ZIP Co de Phone Number [facility] [address] [place] [address], [facility] * ECG 12-LEAD WITH MUSE (LHE) (07/21/2024 10:12 PM CDT) Systolic Blood Pressure mmHg RADIOLOGY RESULTS Diastolic Blood Pressure mmHg RADIOLOGY RESULTS Ventricular Rate 76 BPM RAD IOLOGY RESULTS Atrial Rate 76 BPM RADIOLOG Y RESULTS NV Interval 138 ms RADIOLOG Y RESULTS QRS Duration 70 ms RADIOLO GY RESULTS QT 384 ms RADIOLOGY RESULTS QTc 432 ms RADIOLOGY RESULTS P [place] 18 degrees RADIOLOGY RESULTS R AXIS 3 degrees RADIOLOGY RESULTS T [place] 61 degrees RADIOLOGY RESULTS Interpretation ECG Sinus rhythm with sinus arrhythmia Anterior infarct , age undetermined ST & T wave abnormality, consider lateral ischemia Abnormal ECG No previous ECGs available Confirmed by GEURINK ??SILVIA BHATT LOC:JN ([id number]) on 07/22/2024 7:31:43 AM RADIOLOGY RESULTS 07/21/2024 10:1 2 PM CDT 07/22/2024 7:31 AM CDT us Noreen Bullard MD ECG ORDERABLES Edited Result - Final Performing Organization Address [facility] Co de Phone Number RADIOLOGY RESULTS * Extra Red Top Tube (LAB USE ONLY) (07/21/2024 8:13 PM CDT) Hold Specimen JIC 07/21/2024 9:31 PM CDT [facility] Blood BLOOD SPECIMEN / Unknown Venipuncture / Unknown 07/21/2024 8:13 PM CDT 07/21/2024 8:22 PM CDT us Esther Laurent APRN CNM LAB - BLOOD ORDERABLES Fi nal Result Performing Organization Address City/[facility]/ZIP Co de Phone Number [facility] [address] [place] [address], [facility] * Lipase (07/21/2024 8:13 PM CDT) Lipase 22 13 - 60 U/L 07/21/2024 8:49 PM CDT [facility] Blood STRUCTURE OF RIGHT HAND / Unknown Venipuncture / Unknown 07/21/2024 8:13 PM CDT 07/21/2024 8:22 PM CDT Esther Laurent FATOU PLATA LAB - BLOOD ORDERABLES Fi nal Result [facility] [address] [place], [place] [address] * (ABNORMAL) Group B strep PCR (07/19/2024 [...] Xpert GBS LB Assay, performed on the [employer] Instrument Systems, is a qualitative in vitro [...] settings. The device is not intended for nfauu-yq-qrav use. Oliva Pinzon MD LAB - MICRO GENERAL ORDERABLES Final Result [facility] Inf. Diseases Diag. Lab [address] [facility], [address] [place] [address] * Fern Test for Rupture of Membranes (07/19/2024 7:23 PM CDT) Fern Crystallization No ferning present No ferning present JANAK 07/19/2024 8:11 PM CDT LABORATORY Amniotic fluid VAGINAL STRUCTURE / Unknown Non-blood Collection / Unknown 07/19/2024 7:23 PM CDT 07/19/2024 7:32 PM CDT Oliva Pinzon MD LAB - BODY FLUIDS ORDERABLES Fi nal Result LABORATORY [facility] Lab [address] [facility] (1st floor, no room number) [place] [address] * Hepatitis C Antibody (External Result) (01/25/2024 9:00 AM CDT) Hepatitis C Antibody (External) Nonreactive Nonreactive EXTERNAL LAB 01/25/2024 9:00 AM CDT us Patient Reported LAB - HIM EXTERNAL RESULT Final Result EXTERNAL LAB External Lab * HIV-1 Antibody (External Result) (01/25/2024 9:00 AM CDT) HIV 1&2 Antibody (External) Nonreactive Nonreactive EXTERNAL LAB 01/25/2024 9:00 AM CDT us Patient Reported LAB - HIM EXTERNAL RESULT Final Result EXTERNAL LAB External Lab from Last 3 Months or Most Recently Relevant to Health Maintenance Additional Health Concerns Active Problems Noted Date Diagnosed Date Patient expresses financial resource strain 03/23 Insurance [facility] [address] [place] [address] [place] [address] Advance Directives For more information, please contact: [phone] * Full Code (Latest Code Status on [...] patie nt/ legal decision maker Care Teams Project Superintendent Relationship Specialty Start Date End Date Esther Laurent APRN [address] [place] [address] PCP - General single spindle screw machine operator 07/21/24 No Ref-Primary, Physician 02/28/24 Farrukh Gaspar MD [address] [address] Physician single spindle screw machine operator 02/28/[address] [facility] [place] [address] Title Agent Dietitian 03/06/24 Tara Martin, [facility] Lead Statistician 04/11/24 Farrukh Gaspar MD [address] [address] Assigned OBGYN Provider 04/13/24 Padmini Calderon DO [address] [address] Physician single spindle screw machine operator 04/22/24 Padmini Calderon DO [address] [address] Assigned OBGYN Provider 07/14/24
--- OUTSIDE RECORDS SUMMARY | 2024-08-29 10:52 | XMS_ITS | Encounter Summary ---
Author Organization [facility] Address [address] [place] [address] Care Team Providers Care Spanish Tutor Name Role Phone No Ref-Primary, Physician Unavailable [phone] Farrukh Gaspar MD Unavailable [phone] Unavailable Unavailab Tara Barbosa Unavailable [phone] Farrukh Gaspar MD Unavailable [phone] Padmini Calderon DO Unavailable Padmini Calderon DO Unavailable Lakesha Padron APRN [facility] Primary Care Provider [phone] Encounter Details Date Type Department Care Team (Latest Contact Info) Description 08/18/2024 Travel Social History Tobacco Use Types Packs/Day [...] in an abandoned building, in an overnight group home, or couch-surfing.) Yes 07/22/2024 Are you [...] on file 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 Author Create an action plan to increase financial stability Care Plan Patient expresses financial resource strain No Patt Gautam, [facility] Note: Barriers: Lack of housing Strengths: Engaged in care coordination Patient expressed understanding of goal: YES Action steps to achieve this goal: 1. I will review the resources provided by animal care giver 2. I will I will contact my care team with questions, concerns, or support needs. 3. I will use the clinic as a resource, and I understand I can contact my clinic with 24/7 after hours services available. Cellar Packer will remain available as needed. documented as of this encounter Visit Diagnoses Not on filedocumented in this encounter Additional Health Concerns Active Problems Noted Date Diagnosed Date Patient expresses financial resource strain 03/23 documented as of this encounter Care Teams Spanish Tutor Relationship Specialty Start Date End Date Lakesha Padron APRN [facility] [address] [place] [address] PCP - General body sander 07/21/24 No Ref-Primary, Physician 02/28/24 Farrukh Gaspar MD [address], [address] [address] Physician body sander 02/28/[address] [facility] [place] [address] Diploma Maker Dietitian 03/06/24 Tara Martin, [facility] Lead Cellar Packer 04/11/24 Farrukh Gaspar MD [address], [address] [address] Assigned OBGYN Provider 04/13/24 Padmini Calderon DO [address] [address] Physician body sander 04/22/24 Padmini Calderon DO [address] [address] Assigned OBGYN Provider 07/14/24 documented as of this encounter
--- OUTSIDE RECORDS SUMMARY | 2024-08-29 10:53 | XMS_ITS | Encounter Summary ---
Author Organization [place] Address [address] [place] [address]. [place] [address] Care Team Providers Care Biology Instructor Name Role Phone No Ref-Primary, Physician Unavailable Farrukh Gaspar MD Unavailable [phone] Unavailable Unavailab Tara Barbosa [facility] Unavailable Farrukh Gaspar MD Unavailable Padmini Calderon DO Unavailable Padmini Calderon DO Unavailable Lakesha Padron APRN [facility] Primary Care Provider Reason for Visit * Reason Comments Ultrasound BPP: DM2, CHTN Encounter Details Date Type Department Care Team (Late st Contact Info) Description 08/07/2024 3:30 PM CDT Office Visit [facility] [address] [place] [address] Alyce Whitlock MD [address] [place] [address] [address] [place] [address] with type 2 diabetes mellitus in third trimester (Primary Dx); Chronic hypertension in Social History Tobacco Use [...] in an abandoned building, in an overnight alf, or couch-surfing.) Yes 07/22/2024 Are you worried [...] on file 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 Alyce Whitlock documented in this encounter Nursing Notes * Mila Mata I, KATHI - 08/07/2024 3:30 PM CDT Patient presents to [facility] for BPP at 35w1d due to DM2, CHTN. Positive movement. Denies LOF, vaginal bleeding or cramping/contractions. SBAR given to [facility] MD, see their note in Epic. documented in this encounter Plan of Treatment Not on file documented as of this encounter Goals Goal Patient Goal Type Associated Problems Recent Progress Patient-Stated? Author Create an action plan to increase financial stability Care Plan Patient expresses financial resource strain No Patt Gautam, [facility] Note: Barriers: Lack of housing Strengths: Engaged in care coordination Patient expressed understanding of goal: YES Action steps to achieve this goal: 1. I will review the resources provided by clinical care coordinator 2. I will I will contact my care team with questions, concerns, or support needs. 3. I will use the clinic as a resource, and I understand I can contact my clinic with 24/7 after hours services available. Small Arms Artillery Repairer will remain available as needed. documented as of this encounter Visit Diagnoses Diagnosis with type 2 diabetes mellitus in third trimester- Primary Chronic hypertension in Benign essential hypertension complicating , childbirth, and the puerperium, unspecified as to episode of care documented in this encounter Additional Health Concerns Active Problems Noted Date Diagnosed Date Patient expresses financial resource strain 03/23 documented as of this encounter Care Teams Biology Instructor Relationship Specialty Start Date End Date Lakesha Padron APRN CN [address] [place] [address] PCP - General fish smoker 07/21/24 No Ref-Primary, Physician 02/28/24 Farrukh Gaspar MD [address], [address] [address] Physician fish smoker 02/28/[address] [facility] [place] [address] Rack Pusher Dietitian 03/06/24 Tara Martin, [facility] Lead Small Arms Artillery Repairer 04/11/24 Farrukh Gaspar MD [address], [address] [address] Assigned OBGYN Provider 04/13/24 Padmini Calderon DO [address] [address] Physician fish smoker 04/22/24 Padmini Calderon DO [address] [address] Assigned OBGYN Provider 07/14/24 documented as of this encounter
--- OUTSIDE RECORDS SUMMARY | 2024-08-29 10:53 | XMS_ITS | Encounter Summary ---
Author Organization [place] Address [facility] [place] [address] Care Team Providers Care Iron Melter Name Role Phone No Ref-Primary, Physician Unavailable Farrukh Gaspar MD Unavailable Kim Doll RD Unavailable Unavailab Tara Barbosa [facility] Unavailable Farrukh Gaspar MD Unavailable Padmini Calderon DO Unavailable Padmini Calderon DO Unavailable Esther Laurent APRN [facility] Primary Care Provider [phone] Reason for Referral * Diagnostic Imaging Ultrasound (Routine) - Pending Review Specialty Diagnoses / Procedures Referred By Contac t Referred To Contact Radiology. Diagnoses with type 2 diabetes mellitus in second trimester Procedures [facility] US Comprehensive Single F/U Dacia Alvarez MD [address] [facility] [address] [place] [address] Phone: tel: fax: Referral ID Status Reason Start Date Expiration Date V isits Requested Visits Authorized [id number] Pending Review 06/25/2024 06/25/2025 1 1 Reason for Visit * Diagnostic Imaging Ultrasound (Routine) - Pending Review Specialty Diagnoses / Procedures Referred By Contac t Referred To Contact Radiology. Diagnoses with type 2 diabetes mellitus in second trimester Procedures MFM US Comprehensive Single F/U Dacia Alvarez MD [address] [place] [address] Phone: tel: fax: Referral ID Status Reason Start Date Expiration Date V isits Requested Visits Authorized [id number] Pending Review 06/25/2024 06/25/2025 1 1 Encounter Details Date Type Department Care Team (Latest Contact Info) Description 08/14/2024 8:00 AM CDT - 08/14/2024 12:10 PM CDT Hospital Encounter [facility] [address] [place] [address] Alyce Whitlock MD [address] [place] [address] Ilene Alegria MD [address] [place] [address] with type 2 diabetes mellitus in second [...] in an abandoned building, in an overnight penitentiary, or couch-surfing.) Yes 07/22/2024 Are you worried [...] on file Legal 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 08/24/2024 aspirin 81 MG EC tablet Take 81 mg by mouth daily 08/22/2024 insulin aspart (NOVOLOG FLEXPEN) 100 UNIT/ML penIndications:In sulin controlled gestational diabetes mellitus (GDM) in second trimester Take 6 units with breakfast, may titrate up to 50 units daily 15 mL 3 04/02/2024 08/22/2024 insulin detemir (LEVEMIR PEN) 100 UNIT/ML penIndications:In sulin controlled gestational diabetes mellitus (GDM) in second trimester Take at Bedtime as directed, Max of 60 units daily 30 mL 2 04/16/2024 08/22/2024 labetalol (NORMODYNE) 300 MG tabletIndications :Hypertension Take 400 mg by mouth 2 times daily. 07/31/2024 08/22/2024 metFORMIN (GLUCOPHAGE) 500 MG tabletIndications :Insulin controlled gestational diabetes mellitus (GDM) in second trimester Take 1 tablet (500 mg) by mouth 2 times daily (with meals) 60 tablet 3 04/08/2024 08/22/2024 omeprazole (PRILOSEC) [address] capsuleIndication s:Heartburn during in second trimester Take 1 capsule (10 mg) by mouth daily 60 capsule 2 2024 08/22/2024 documented as of this encounter Plan of Treatment Not on file documented as of this encounter Goals Goal Patient Goal Type Associated Problems Recent Progress Patient-Stated? Author Create an action plan to increase financial stability Care Plan Patient expresses financial resource strain No Patt Gautam, [facility] Note: Barriers: Lack of housing Strengths: Engaged in care coordination Patient expressed understanding of goal: YES Action steps to achieve this goal: 1. I will review the resources provided by healthcare network consultant 2. I will I will contact my care team with questions, concerns, or support needs. 3. I will use the clinic as a resource, and I understand I can contact my clinic with 24/7 after hours services available. Drawing Press Operator will remain available as needed. documented as of this encounter Procedures Procedure Name Priority Date/Time Associated Diagnosis Comments [facility] COMPREHENSIVE SINGLE F/U Routine 08/14/2024 8:43 AM CDT with type 2 diabetes mellitus in second trimester documented in this encounter Results * M US Comprehensive Single F/U (08/14/2024 8:43 AM CDT) Anatomical Region Laterality Modality Ultrasound 08/14/2024 8:06 [...] ? Study Date: ??08/14/2024 8:06am Pat. NO: ??[id number] ?Referring ??MD: ESTHER LAURENT Site: ? Office Cashier: Sandhya Barrow RDMS : ??1990 ?Age: ?? [...] lb 13 ?oz EFW by ? Hadlock ([id number]) Head / Face / Neck Biometry: Fabric And Textile Factory Worker ?6.2 ? mm CM ? 6.6 ? mm ANATOMY ----- The following structures appear normal: Head / Neck ? Cranium. Head size. Head shape. Lateral ventricles. Midline falx. Cavum septi pellucidi. Cerebellum. Cisterna magna. Thalami. Face ? Lips. Profile. Nose. Heart / Thorax ?4-chamber view. RVOT view. LVOT view. 6-uzyick-alwsrrp view. ? Diaphragm. Abdomen ? Stomach. Kidneys. [...] to triage for evaluation. She has a authorization nurse appointment immediately following her visit here and [...] as follows: - Chronic hypertension on medications: [id number] - Chronic hypertension on medications requiring ongoing dose escalation/suboptimal control: [id number]-29s4e If she is diagnosed with superimposed preeclampsia [...] medical record, and communicating with other health manager medicare marketing and/or care coordination. Procedure Note Ilene Alegria MD - 08/14/2024 Comp Follow Up ----- Pat. Name: ROLA MCKEON Study Date: 08/14/2024 8:06am Pat. NO: [id number] Referring MD: ESTHER LAURENT Site: Office Cashier: Sandhya Barrow RDMS : 1990 Age: 34 [...] EFW (lb,oz) 6 lb 13oz EFW by Hadlock([id number]) Head / Face / Neck Biometry: Fabric And Textile Factory Worker 6.2mm CM 6.6mm ANATOMY ----- The following structures appear normal: Head / Neck Cranium. Head size. Head shape.Lateral ventricles. Midline falx. Cavum septi pellucidi. Cerebellum.Cisterna magna. Thalami. Face Lips. Profile. Nose. Heart / Thorax 4-chamber view. RVOT view. LVOT view.9-lcxdph-qacjayh view. Diaphragm. Abdomen Stomach. Kidneys. Bladder. Spine [...] as follows: - Chronic hypertension on medications: [id number] - Chronic hypertension on medications requiring ongoing doseescalation/suboptimal control: 15m5f-44d1p If she is diagnosed with superimposed preeclampsia [...] electronic medical record, andcommunicating with other health manager medicare marketing and/or carecoordination. IMPRESSION ----- 1. Mcmahan at 36w 1d gestational age. 2. None of the anomalies commonly detected by ultrasound were evident inthe limited anatomic survey as described above. 3. Growth parameters and estimated weight were appropriate forgestational age. 4. There is mild polyhydramnios with an JOHN of 28cm. 5. The BPP was 8/8. us Dacia Alvarez MD [facility] US ORDERABLES Edited Re sult - Final documented in this encounter Visit Diagnoses Diagnosis with type 2 diabetes mellitus in second trimester documented in this encounter Additional Health Concerns Active Problems Noted Date Diagnosed Date Patient expresses financial resource strain 03/23 documented as of this encounter Care Teams Iron Melter Relationship Specialty Start Date End Date Nereida EstherFATOU boone CNM [address] [place] [address] PCP - General revit drafter 07/21/24 No Ref-Primary, Physician 02/28/24 Farrukh Gaspar MD [address] [address] Physician revit drafter 02/28/[address] [place] [address] Ophthalmic Medical Assistant Dietitian 03/06/24 Tara Martin, [facility] Lead Drawing Press Operator 04/11/24 Farrukh Gaspar MD [address], [address] [address] Assigned OBGYN Provider 04/13/24 Padmini Calderon DO [address] [address] Physician revit drafter 04/22/24 Padmini Calderon DO [address] [address] Assigned OBGYN Provider 07/14/24 documented as of this encounter
--- OUTSIDE RECORDS SUMMARY | 2024-08-29 10:53 | XMS_ITS | Encounter Summary ---
Author Organization [place] Address [address] [place] [address] Care Team Providers Care Head Of Drama Name Role Phone No Ref-Primary, Physician Unavailable Farrukh Gaspar MD Unavailable Kim Doll RD Unavailable Unavailab Tara Barbosa Unavailable Farrukh Gaspar MD Unavailable Padmini Calderon DO Unavailable Padmini Calderon DO Unavailable Lakesha Padron APRN [facility] Primary Care Provider [phone] Encounter Details Date Type Department Care Team (Late st Contact Info) Description 07/31/2024 [facility] [address] [place] [phone] Teagan Mark, DOUGLAS [address] [facility] [address] [place] [address] Social History Tobacco Use Types Packs/Day Years [...] in an overnight correction, or couch-surfing.) Yes 07/22/2024 Are you worried [...] on file 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 Author Create an action plan to increase financial stability Care Plan Patient expresses financial resource strain No Patt Gautam, [facility] Note: Barriers: Lack of housing Strengths: Engaged in care coordination Patient expressed understanding of goal: YES Action steps to achieve this goal: 1. I will review the resources provided by primary care nurse 2. I will I will contact my care team with questions, concerns, or support needs. 3. I will use the clinic as a resource, and I understand I can contact my clinic with / after hours services available. Plant Worker will remain available as needed. documented as of this encounter Visit Diagnoses Not on filedocumented in this encounter Additional Health Concerns Active Problems Noted Date Diagnosed Date Patient expresses financial resource strain 03/23 documented as of this encounter Care Teams Head Of Drama Relationship Specialty Start Date End Date NereidaLakesha APRCierra PLATA [address] [place] [address] PCP - General stiff leg derrick operator 07/21/24 No Ref-Primary, Physician 02/28/24 Farrukh Gaspar MD [address] [address] Physician stiff leg derrick operator 02/28/[address] [place] [address] Otr Driver Dietitian 03/06/24 Tara Martin, [facility] Lead Plant Worker 04/11/24 Farrukh Gaspar MD [address] [address] Assigned OBGYN Provider 04/13/24 Padmini Calderon DO [address] [address] Physician stiff leg derrick operator 04/22/24 Padmini Calderon DO [address] [address] Assigned OBGYN Provider 07/14/24 documented as of this encounter
--- OUTSIDE RECORDS SUMMARY | 2024-08-29 10:53 | XMS_ITS | Encounter Summary ---
Author Organization [place] Address [address] [place] [address] Care Team Providers Care Ice Cream Dipper Name Role Phone No Ref-Primary, Physician Unavailable [phone] Farrukh Gaspar MD Unavailable [phone] Unavailable Unavailab Tara Barbosa Unavailable [phone] Farrukh Gaspar MD Unavailable Padmini Calderon DO Unavailable Padmini Calderon DO Unavailable Lakesha Padron APRN [facility] Primary Care Provider [phone] Encounter Details Date Type Department Care Team (Latest Contact Info) Description 07/24/2024 Travel Social History Tobacco Use Types Packs/Day [...] in an abandoned building, in an overnight custodial, or couch-surfing.) Yes 07/22/2024 Are you worried [...] on file 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 Author Create an action plan to increase financial stability Care Plan Patient expresses financial resource strain No Patt Gautam, [facility] Note: Barriers: Lack of housing Strengths: Engaged in care coordination Patient expressed understanding of goal: YES Action steps to achieve this goal: 1. I will review the resources provided by home health caregiver 2. I will I will contact my care team with questions, concerns, or support needs. 3. I will use the clinic as a resource, and I understand I can contact my clinic with 24/7 after hours services available. Supervisor Reactor Fueling will remain available as needed. documented as of this encounter Visit Diagnoses Not on filedocumented in this encounter Additional Health Concerns Active Problems Noted Date Diagnosed Date Patient expresses financial resource strain 03/23 documented as of this encounter Care Teams Ice Cream Dipper Relationship Specialty Start Date End Date Lakesha Padron APRN [facility] [address] [place] [address] PCP - General defence force senior officer 07/21/24 No Ref-Primary, Physician 02/28/24 Farrukh Gaspar MD [address], [address] [address] Physician defence force senior officer 02/28/[address] [facility] [place] [address] Ice Handler Dietitian 03/06/24 Tara Martin, [facility] Lead Supervisor Reactor Fueling 04/11/24 Farrukh Gaspar MD [address], [address] [address] Assigned OBGYN Provider 04/13/24 Padmini Calderon DO [address] [address] Physician defence force senior officer 04/22/24 Padmini Calderon DO [address] [address] Assigned OBGYN Provider 07/14/24 documented as of this encounter
--- OUTSIDE RECORDS SUMMARY | 2024-08-29 10:53 | XMS_ITS | Encounter Summary ---
Author Organization [place] Address [facility] [place] [address] Care Team Providers Care Booth Manager Name Role Phone No Ref-Primary, Physician Unavailable Farrukh Gaspar MD Unavailable Kim Doll RD Unavailable Unavailab Tara Barbosa [facility] Unavailable Farrukh Gaspar MD Unavailable Padmini Calderon DO Unavailable Pamdini Calderon DO Unavailable Esther Laurent APRN [facility] Primary Care Provider [phone] Reason for Referral * Diagnostic Imaging Ultrasound (Routine) - Pending Review Specialty Diagnoses / Procedures Referred By Contac t Referred To Contact Radiology. Diagnoses Chronic hypertension in with type 2 diabetes mellitus in third trimester Polyhydramnios affecting in third trimester Procedures MFM BPP Single Ilene Aelgria MD [address] [place] [address] Phone: tel: fax: Referral ID Status Reason Start Date Expiration Date V isits Requested Visits Authorized [id number] Pending Review 08/14/2024 08/14/2025 1 1 Reason for Visit * Reason Comments Ultrasound RL2: CHTN and DM 2 Encounter Details Date Type Department Care Team (Late st Contact Info) Description 08/14/2024 8:30 AM CDT Office Visit [facility] [address] [place] [address] Alyce Whitlock MD [address] [place] [address] Ilene Alegria MD [address] [place] [address] Chronic hypertension in (Primary Dx); with type 2 diabetes mellitus in third trimester; Polyhydramnios affecting in third trimester Social History Tobacco Use Types Packs/Day Years [...] Date Recorded Do you have housing? 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 For a detailed report of the ultrasound examination, please see the ultrasound report whichcan be found under the imaging tab. If you have questions regarding today's evaluation or if we can be of further service, please contact the Maternal- Medicine Center. Ilene Alegria MD Automotive Shop Foreman, TESTING COORDINATOR Maternal- Medicine [phone] (Pager) documented in this encounter Nursing Notes * Nasreen Dumont RN - 08/14/2024 8:30 AM CDT Patient presents to [facility] for RL2/BPP at 36w1d due to CHTN and DM 2 on medication. Positive movement. Denies LOF, vaginal bleeding. States irregular cramping/contractions that have been evaluatedin triage a few times recently. SBAR given to Jose BHATT, see their note in Epic. [facility] (patient's primary OB clinic) notified of the need for patient to have a preE evaluation with lab work ather appointment today due to worsening symptoms. They will refer to US report from today's visit for further recommendations. documented in this encounter Plan of Treatment Not on file documented as of this encounter Goals Goal Patient Goal Type Associated Problems Recent Progress Patient-Stated? Author Create an action plan to increase financial stability Care Plan Patient expresses financial resource strain Patt Young, [facility] Note: Barriers: Lack of housing Strengths: Engaged in care coordination Patient expressed understanding of goal: YES Action steps to achieve this goal: 1. I will review the resources provided by urgent care nurse practitioner 2. I will I will contact my care team with questions, concerns, or support needs. 3. I will use the clinic as a resource, and I understand I can contact my clinic with 14/05 after hours services available. Telecommunicator will remain available as needed. documented as of this encounter Results * [facility] BPP Single (08/18/2024 12:22 PM CDT) Anatomical [...] ? Study Date: ??08/18/2024 11:56am Pat. NO: ??[id number] ?Referring ??MD: ESTHER LAURENT Site: ? Major Case Detective: Nathalie Harman RDMS : ??1990 ?Age: ?? [...] MCKEON Study Date: 08/18/2024 11:56am Pat. NO: [id number] Referring MD: ESTHER LAURENT Site: Major Case Detective: Nathalie Harman RDMS : 1990 Age: 34 [...] 3. The BPP is 8/8. us Ilene Alegria MD [facility] ORDERABLES Edited Re sult - Final documented in this encounter Visit Diagnoses Diagnosis Chronic hypertension in - Primary Benign essential hypertension complicating , childbirth, and the puerperium, unspecified as to episode of care with type 2 diabetes mellitus in third trimester Polyhydramnios affecting in third trimester Chronic hypertension in Benign essential hypertension complicating , childbirth, and the puerperium, unspecified as to episode of care with type 2 diabetes mellitus in third trimester Polyhydramnios affecting in third trimester documented in this encounter Additional Health Concerns Active Problems Noted Date Diagnosed Date Patient expresses financial resource strain 03/23 documented as of this encounter Care Teams Booth Manager Relationship Specialty Start Date End Date Esther Laurent APRN CNM [address] [facility] [place] [place] [address] PCP - General boot turner 07/21/24 No Ref-Primary, Physician 02/28/24 Farrukh Gaspar MD [address], [address] [address] Physician boot turner 02/28/[address] [facility] [place] [address] Cardroom Hand Dietitian 03/06/24 Tara Martin, [facility] Lead Telecommunicator 04/11/24 Farrukh Gaspar MD [address], [address] [address] Assigned OBGYN Provider 04/13/24 Padmini Calderon DO [address] [address] Physician boot turner 04/22/24 Padmini Calderon DO [address] [address] Assigned OBGYN Provider 07/14/24 documented as of this encounter
--- OUTSIDE RECORDS SUMMARY | 2024-08-29 10:53 | XMS_ITS | Encounter Summary ---
Author Organization [place] Address Formerly [facility]0 [place] [address] Care Team Providers Care Torch Shearer Name Role Phone No Ref-Primary, Physician Unavailable [phone] Farrukh Gaspar MD Unavailable Kim Doll RD Unavailable Unavailab Tara Barbosa [facility] Unavailable [phone] Farrukh Gaspar MD Unavailable Padmini Calderon DO Unavailable Padmini Calderon DO Unavailable Esther Laurent APRN [facility] Primary Care Provider Reason for Referral * Diagnostic Imaging Ultrasound (Routine) - Pending Review Specialty Diagnoses / Procedures Referred By Contyasmany t Referred To Contact Radiology. Diagnoses with type 2 diabetes mellitus in second trimester Procedures [facility] BPP Single Dacia Alvarez MD [address] [facility] [address] [place] [address] Phone: tel: fax: Referral ID Status Reason Start Date Expiration Date V isits Requested Visits Authorized [id number] Pending Review 06/25/2024 06/25/2025 1 1 Reason for Visit * Diagnostic Imaging Ultrasound (Routine) - Pending Review Specialty Diagnoses / Procedures Referred By Contac t Referred To Contact Radiology. Diagnoses with type 2 diabetes mellitus in second trimester Procedures [facility] BPP Single Dacia Alvarez MD [address] [place] [address] [place] [address] Phone: tel: fax: Referral ID Status Reason Start Date Expiration Date V isits Requested Visits Authorized [id number] Pending Review 06/25/2024 06/25/2025 1 1 Encounter Details Date Type Department Care Team (Latest Contact Info) Description 08/07/2024 3:00 PM CDT - 08/07/2024 11:59 PM CDT Hospital Encounter [facility] [address] [place] [address] Alyce Whitlock MD [address] [place] [address] [place] [address] with type 2 diabetes mellitus [...] in an abandoned building, in an overnight chcf, or couch-surfing.) Yes 07/22/2024 Are you worried [...] on file 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 07/17/2024 08/09/2024 labetalol (NORMODYNE) 200 MG tablet Take 300 mg by mouth 2 times daily. 08/07/2024 08/09/2024 labetalol (NORMODYNE) 300 MG tabletIndications :Hypertension Take [...] expresses financial resource strain No Patt Gautam, [facility] Note: Barriers: Lack of housing Strengths: Engaged in care coordination Patient expressed understanding of goal: YES Action steps to achieve this goal: 1. I will review the resources provided by home care physical therapist 2. I will I will contact my care team with questions, concerns, or support needs. 3. I will use the clinic as a resource, and I understand I can contact my clinic with 24/7 after hours services available. Stencil Machine Operator will remain available as needed. documented as of this encounter Procedures Procedure Name Priority Date/Time Associated Diagnosis Comments [facility] BPP SINGLE Routine 08/07/2024 3:33 PM CDT with type 2 diabetes mellitus in second trimester documented in this encounter Results * [facility] BPP Single (08/07/2024 3:33 PM CDT) Anatomical Region Laterality Modality Ultrasound 08/07/2024 3:25 PM CDT Impressions 08/07/2024 4:06 PM CDT IMPRESSION ----- 1. Mcmahan at 35w 1d gestational age. 2. Mild polyhydramnios was again noted. 3. The BPP was reassuring. Narrative 08/07/2024 4:06 PM CDT ?BPP ----- Pat. Name: ROLA MCKEON ? Study Date: ??08/07/2024 3:25pm Pat. NO: ??[id number] ?Referring ??: ESTHER LAURENT Site: ? Database Marketing Manager: Matthew Harding RDMS : ??1990 ?Age: ?? 34 ----- INDICATION ----- Type 2 Diabetes cHTN - on medications METHOD ----- Transabdominal ultrasound examination. View: Sufficient ----- Mcmahan . Number of fetuses: 1 DATING ----- ? Date ?Details ?Gest. age ?CARLOS LMP ?11/28/2023 ? 36 w + 1 d ? 09/03/2024 Previous U/S ?01/25/2024 ?GA, GA 7 w + 2 d ? 35 w + 1 d ? 09/10/2024 Assigned dating ?based on ultrasound (GA), selected on 08/07/2024 ?35 w + 1 d ? 09/10/2024 GENERAL EVALUATION ----- Cardiac activity present. FHR 150 bpm. movements: visualized. Presentation: cephalic Placenta: Anterior Umbilical cord: previously studied AMNIOTIC FLUID ASSESSMENT ----- Amount of AF: Polyhydramnios, Mild MVP 8.9 cm. JOHN 29.8 cm. Q1 9.1 cm, Q2 3.9 cm, Q3 9.7 cm, Q4 7.2 cm BIOPHYSICAL PROFILE ----- 2: breathing movements 2: Gross body movements 2: tone 2: Amniotic fluid volume 8/8 Biophysical profile score Interpretation: normal RECOMMENDATION ----- Thank-you for referring your patient for surveillance due to T2DM and cHTN on medications. We discussed the results of the ultrasound with the patient. Continue twice weekly surveillance as previously recommended in addition to serial evaluation of growth every 4 weeks. Return to primary provider for continued care. If you have questions regarding today's evaluation or if we can be of further service, please contact the [facility] Center. anomalies may be present but not detected Procedure Note Alyce Whitlock MD - 08/07/2024 BPP ----- Pat. Name: ROLA MCKEON Study Date: 08/07/2024 3:25pm Pat. NO: [id number] Referring MD: ESTHER LAURENT Site: Database Marketing Manager: Matthew HardingPATY : 1990 Age: 34 ----- INDICATION ----- Type 2 Diabetes cHTN - on medications METHOD ----- Transabdominal ultrasound examination. View: Sufficient ----- Mcmahan . Number of fetuses: 1 DATING ----- DateDetailsGest. age CARLOS LMP w + 1 d 09/03/2024 Previous U/S 01/25/2024 GA, GA7 w + 2 d35 w + 1 d 09/10/2024 Assigned dating based on ultrasound (GA), selected on08/07/2024 35w + 1 d 09/10/2024 GENERAL EVALUATION ----- Cardiac activity present. FHR 150 bpm. movements: visualized.Presentation: cephalic Placenta: Anterior Umbilical cord: previously studied AMNIOTIC FLUID ASSESSMENT ----- Amount of AF: Polyhydramnios, Mild MVP 8.9 cm. JOHN 29.8 cm. Q1 9.1 cm, Q2 3.9 cm, Q3 9.7 cm, Q4 7.2 cm BIOPHYSICAL PROFILE ----- 2: breathing movements 2: Gross body movements 2: tone 2: Amniotic fluid volume 8/8 Biophysical profile score Interpretation: normal RECOMMENDATION ----- Thank-you for referring your patient for surveillance due toT2DM and cHTN on medications. We discussed the results of the ultrasoundwith the patient. Continue twice weekly surveillance as previously recommended inaddition to serial evaluation of growth every 4 weeks. Return to primary provider for continued care. If you have questions regarding today's evaluation or if we can be offurther service, please contact the [facility] Center. anomalies may be present but not detected IMPRESSION ----- 1. Mcmahan at 35w 1d gestational age. 2. Mild polyhydramnios was again noted. 3. The BPP was reassuring. us Dacia TRUONG [facility] ORDERABLES Edited Re sult - Final documented in this encounter Visit Diagnoses Diagnosis with type 2 diabetes mellitus in second trimester documented in this encounter Additional Health Concerns Active Problems Noted Date Diagnosed Date Patient expresses financial resource strain 03/23 documented as of this encounter Care Teams Torch Shearer Relationship Specialty Start Date End Date Esther Laurent APRN [facility] [address] [place] [address] PCP - General software systems architect 07/21/24 No Ref-Primary, Physician 02/28/24 Farrukh Gaspar MD [address], [address] [address] Physician software systems architect 02/28/[address] [facility] [place] [address] Loop Machine Operator Dietitian 03/06/24 [facility] Lead Stencil Machine Operator 04/11/24 Farrukh Gaspar MD [address], [address] [address] Assigned OBGYN Provider 04/13/24 Padmini Calderon DO [address] [address] Physician software systems architect 04/22/24 Padmini Calderon DO [address] [address] Assigned OBGYN Provider 07/14/24 documented as of this encounter
--- OUTSIDE RECORDS SUMMARY | 2024-08-29 10:53 | XMS_ITS | Encounter Summary ---
Author Organization [place] Address Formerly [facility] [place] [address] Care Team Providers Care Fuel Verification Technician Name Role Phone No Ref-Primary, Physician Unavailable [phone] Farrukh Gaspar MD Unavailable [phone] Unavailable Unavailab Tara Barbosa [facility] Unavailable Farrukh Gaspar MD Unavailable Padmini Calderon DO Unavailable Padmini Calderon DO Unavailable Esther Laurent APRN [facility] Primary Care Provider [phone] Reason for Referral * Diagnostic Imaging Ultrasound (Routine) - Pending Review Specialty Diagnoses / Procedures Referred By Contyasmany t Referred To Contact Radiology. Diagnoses with type 2 diabetes mellitus in second trimester Procedures [facility] BPP Single Dacia Alvarez MD [address] [facility] [address] [place] [address] Phone: tel: fax: Referral ID Status Reason Start Date Expiration Date V isits Requested Visits Authorized [id number] Pending Review 06/25/2024 06/25/2025 1 1 Reason for Visit * Diagnostic Imaging Ultrasound (Routine) - Pending Review Specialty Diagnoses / Procedures Referred By Kalyani montelongo Referred To Contact Radiology. Diagnoses with type 2 diabetes mellitus in second trimester Procedures [facility] BPP Single Dacia Alvarez MD [address] [address] [place] [address] Phone: tel: fax: Referral ID Status Reason Start Date Expiration Date V isits Requested Visits Authorized [id number] Pending Review 06/25/2024 06/25/2025 1 1 Encounter Details Date Type Department Care Team (Latest Contact Info) Description 08/04/2024 3:30 PM CDT - 08/04/2024 11:59 PM CDT Hospital Encounter [facility] [address] [place] [address] Mohini Whitlock MD [address] [facility] [address] [place] [address] Audi Matos MD [address] [place] [address] [place] [address] with type 2 diabetes mellitus [...] on file 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 07/17/2024 08/09/2024 labetalol (NORMODYNE) 300 MG tabletIndications :Hypertension [...] expresses financial resource strain No Patt Gautam, [facility] Note: Barriers: Lack of housing Strengths: Engaged in care coordination Patient expressed understanding of goal: YES Action steps to achieve this goal: 1. I will review the resources provided by lead caregiver 2. I will I will contact my care team with questions, concerns, or support needs. 3. I will use the clinic as a resource, and I understand I can contact my clinic with 24/7 after hours services available. Auditing Coder will remain available as needed. documented as of this encounter Procedures Procedure Name Priority Date/Time Associated Diagnosis Comments [facility] BPP SINGLE Routine 08/04/2024 3:57 PM CDT with type 2 diabetes mellitus in second trimester documented in this encounter Results * [facility] BPP Single (08/04/2024 3:57 PM CDT) Anatomical Region Laterality Modality Ultrasound 08/04/2024 3:30 PM CDT Impressions 08/04/2024 5:17 PM CDT IMPRESSION ----- Patient is here for antepartum testing secondary to T2DM and CHTN. 1) Intrauterine at 34 5/7 weeks gestational age. 2) The BPP (performed for maternal T2DM and CHTN) is reassuring. 3) The amniotic fluid volume appears increased and consistent with mild polyhydramnios. Narrative 08/04/2024 5:17 PM CDT ?BPP ----- Pat. Name: ROLA MCKEON ? Study Date: ??08/04/2024 3:30pm Pat. NO: ??[id number] ?Referring ??: ESTHER LAURENT Site: ? [employer] Press Operator: Kandice Sorto RDMS : ??1990 ?Age: ?? 34 ----- INDICATION ----- Type 2 Diabetes METHOD ----- Transabdominal ultrasound examination. View: Sufficient ----- Mcmahan . Number of fetuses: 1 DATING ----- ? Date ?Details ?Gest. age ?CARLOS LMP ?11/28/2023 ? 35 w + 5 d ? 09/03/2024 Previous U/S ?01/25/2024 ?GA, GA 7 w + 2 d ? 34 w + 5 d ? 09/10/2024 Assigned dating ?based on ultrasound (GA), selected on 07/31/2024 ?34 w + 5 d ? 09/10/2024 GENERAL EVALUATION ----- Cardiac activity present. FHR 148 bpm. movements: visualized. Presentation: cephalic Placenta: Anterior Umbilical cord: previously studied AMNIOTIC FLUID ASSESSMENT ----- Amount of AF: Mild, Polyhydramnios MVP 8.3 cm. JOHN 25.0 cm. Q1 8.5 cm, Q2 7.5 cm, Q3 3.2 cm, Q4 5.7 cm BIOPHYSICAL PROFILE ----- 2: breathing movements 2: Gross body movements 2: tone 2: Amniotic fluid volume 05/29 Biophysical profile score Interpretation: normal RECOMMENDATION ----- Continue surveillance with growth scans every 4 weeks and surveillance with twice weekly BPP. Recommend delivery for T2DM: Suboptimal control 37 0/7 to 38 6/7 weeks and if well controlled: 39 0/7 to 39 6/7 weeks. Thank you for the opportunity to participate in the care of this patient. If you have questions regarding today's evaluation or if we can be of further service, please contact the M[facility] Center. anomalies may be present but not detected Procedure Note Audi Matos MD - 08/04/2024 BPP ----- Pat. Name: ROLA MCKEON Study Date: 08/04/2024 3:30pm Pat. NO: [id number] Referring MD: ESTHER LAURENT Site: [employer] Operator: Kandice Sorto RDMS : 1990 Age: 34 ----- INDICATION ----- Type 2 Diabetes METHOD ----- Transabdominal ultrasound examination. View: Sufficient ----- Mcmahan . Number of fetuses: 1 DATING ----- DateDetailsGest. age CARLOS LMP w + 5 d 09/03/2024 Previous U/S 01/25/2024 GA, GA7 w + 2 d34 w + 5 d 09/10/2024 Assigned dating based on ultrasound (GA), selected on07/31/2024 34w + 5 d 09/10/2024 GENERAL EVALUATION ----- Cardiac activity present. FHR 148 bpm. movements: visualized.Presentation: cephalic Placenta: Anterior Umbilical cord: previously studied AMNIOTIC FLUID ASSESSMENT ----- Amount of AF: Mild, Polyhydramnios MVP 8.3 cm. JOHN 25.0 cm. Q1 8.5 cm, Q2 7.5 cm, Q3 3.2 cm, Q4 5.7 cm BIOPHYSICAL PROFILE ----- 2: breathing movements 2: Gross body movements 2: tone 2: Amniotic fluid volume /8 Biophysical profile score Interpretation: normal RECOMMENDATION ----- Continue surveillance with growth scans every 4 weeks andfetal surveillance with twice weekly BPP. Recommend delivery for T2DM: Suboptimal control 37 0/7 to 38 6/7 weeks andif well controlled: 39 0/7 to 39 6/7 weeks. Thank you for the opportunity to participate in the care of this patient.If you have questions regarding today's evaluation or if we can be offurther service, please contact the [facility] Center. anomalies may be present but not detected IMPRESSION ----- Patient is here for antepartum testing secondary to T2DM and CHTN. 1) Intrauterine at 34 5/7 weeks gestational age. 2) The BPP (performed for maternal T2DM and CHTN) is reassuring. 3) The amniotic fluid volume appears increased and consistent with mildpolyhydramnios. Dacia Alvarez MD [facility] ORDERABLES Edited Re sult - Final documented in this encounter Visit Diagnoses Diagnosis with type 2 diabetes mellitus in second trimester documented in this encounter Additional Health Concerns Active Problems Noted Date Diagnosed Date Patient expresses financial resource strain 03/23 documented as of this encounter Care Teams Fuel Verification Technician Relationship Specialty Start Date End Date Esther Laurent APRN [facility] [address] [place] [address] PCP - General over hauler helper 07/21/24 No Ref-Primary, Physician 02/28/24 Farrukh Gaspar MD [address] [address] Physician over hauler helper 02/28/[address] [facility] [place] [address] Crop Puller Dietitian 03/06/24 Tara Martin, [facility] Lead Auditing Coder 04/11/24 Farrukh Gaspar MD [address], [address] [address] Assigned OBGYN Provider 04/13/24 Padmini Calderon DO [address] [address] Physician over hauler helper 04/22/24 Padmini Calderon DO [address] [address] Assigned OBGYN Provider 07/14/24 documented as of this encounter
--- OUTSIDE RECORDS SUMMARY | 2024-08-29 10:53 | XMS_ITS | Encounter Summary ---
Author Organization [place] Address [address] [place] [address] Care Team Providers Care Pearl Maker Name Role Phone No Ref-Primary, Physician Unavailable [phone] Farrukh Gaspar MD Unavailable Kim Doll RD Unavailable Unavailab Tara Barbosa Unavailable [phone] Farrukh Gaspar MD Unavailable Padmini Calderon DO Unavailable Padmini Calderon DO Unavailable Lakesha Padron APRN [facility] Primary Care Provider [phone] Encounter Details Date Type Department Care Team (Latest Contact Info) Description 08/07/2024 Travel Social History Tobacco Use Types Packs/Day [...] on file 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 Author Create an action plan to increase financial stability Care Plan Patient expresses financial resource strain No Patt Gautam, [facility] Note: Barriers: Lack of housing Strengths: Engaged in care coordination Patient expressed understanding of goal: YES Action steps to achieve this goal: 1. I will review the resources provided by director of home care hospice 2. I will I will contact my care team with questions, concerns, or support needs. 3. I will use the clinic as a resource, and I understand I can contact my clinic with 24/7 after hours services available. Bindery Chief will remain available as needed. documented as of this encounter Visit Diagnoses Not on filedocumented in this encounter Additional Health Concerns Active Problems Noted Date Diagnosed Date Patient expresses financial resource strain 03/23 documented as of this encounter Care Teams Pearl Maker Relationship Specialty Start Date End Date Lakesha Padron APRN [facility] [address] [place] [address] PCP - General allergist/pediatric pulmonologist 07/21/24 No Ref-Primary, Physician 02/28/24 Farrukh Gaspar MD [address], [address] [address] Physician allergist/pediatric pulmonologist 02/28/[address] [place] [address] Pit Crane Operator Dietitian 03/06/24 Tara Martin, [facility] Lead Bindery Chief 04/11/24 Farrukh Gaspar MD [address], [address] [address] Assigned OBGYN Provider 04/13/24 Padmini Calderon DO [address] [address] Physician allergist/pediatric pulmonologist 04/22/24 Padmini Calderon DO [address] [address] Assigned OBGYN Provider 07/14/24 documented as of this encounter
--- OUTSIDE RECORDS SUMMARY | 2024-08-29 10:53 | XMS_ITS | Encounter Summary ---
Author Organization [place] Address [address] [place] [address]. [place] [address] Care Team Providers Care Escort Blind Name Role Phone No Ref-Primary, Physician Unavailable Farrukh Gaspar MD Unavailable Kim Doll RD Unavailable Unavailab Tara BarbosaSW Unavailable [phone] Farrukh Gaspar MD Unavailable Padmini Calderon DO Unavailable Padmini Calderon DO Unavailable Lakesha Padron APRN [facility] Primary Care Provider [phone] Reason for Visit * Reason Comments Spontaneous Rupture of Membrane Since t his morning Contractions Since 1500 today Encounter Details Date Type Department Care Team (Latest Contact Info) Description 08/09/2024 10:19 PM CDT - 08/10/2024 12:39 AM CDT Hospital Encounter [facility] [address] [address] eVnus Valladares CNM [address] [place] [address] Discharge Disposition: Home or Self Care Social [...] in an abandoned building, in an overnight mcc, or couch-surfing.) Yes 07/22/2024 Are you worried [...] on file 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 Gender Identity Not on file Sexual Orientation Not on file documented as of this encounter Last Filed Vital Signs Vital Sign Reading Time Taken Comments Blood Pressure 132/89 08/09/2024 10:30 PM CDT Pulse 80 08/09/2024 10:30 PM CDT Temperature 37.8 ??C (100 ??F) 08/09/2024 10:30 PM CD T Respiratory Rate 20 08/09/2024 10:30 PM CDT Oxygen Saturation - - Inhaled Oxygen Concentration - - Weight 73 kg (161 lb) 08/09/2024 10:30 PM CDT Height 152.4 cm (5') 08/09/2024 10:30 PM CDT Body Mass Index 31.44 08/09/2024 10:30 PM CDT documented in this encounter Discharge Instructions * Discharge Instructions* Idania Phelps RN - 08/10/2024 12:30 AM CDT * Attachments The following attachments cannot be sent through Care Everywhere. * : Kick Counts (Solomon Islander) * Bacterial Vaginosis ([place] Islander) * OB EARLY LABOR DISCHARGE INSTRUCTIONS documented in this encounter Medications at Time [...] 2024 08/22/2024 documented as of this encounter Progress Notes * Idania Phelps RN - 08/10/2024 12:39 AM CDT Data: Patient assessed in the [facility] for uterine contractions and leaking vaginal fluid. Cervix0 cm dilated and effaced. station -3. Membranes intact. Contractions are present. Contactionsare , 2-4 minutes apart, and last 50-90 seconds. Uterine assessment is mild by palpation during contractions and soft by palpation at rest. See flowsheets for assessment documentation. Action: Presumed adequate oxygenation documented. Discharge instructions reviewed. Patient instructed to report change in movement, vaginal leaking of fluid or bleeding, abdominal pain, or any concerns related to the to provider/clinic. Response: Orders to discharge home per BONI Valladares. Patient verbalized understanding of educationand agreement with plan. Discharged to home at 0039. * Idania Phelps RN - 08/10/2024 12:24 AM CDT BONI Valladares updated on pt lab results and EFM, orders given to discharge. CONCHITAM to place orders formeds at pt pharmacy for case picker. Pt to follow up at scheduled appointment on . * Idania Phelps RN - 08/09/2024 10:55 PM CDT Data: Patient presented to [facility]: 08/09/2024 10:19 PM. Reason for maternal/ assessment isuterine contractions and leaking vaginal fluid. Patient reports leaking since this morning and worsening contractions since 1500 today. Patient denies vaginal bleeding, nausea, vomiting, headache, visual disturbances, epigastric or RUQ pain, significant edema. Patient reports movement is normal. Patient is a 34w3d . record reviewed. has been complicated by diabetes, hypertension, advanced maternal age (>=35yo), and previous section . Support person is present. HR baseline was , variability is . Accelerations: . Decelerations: . Uterine assessment is during contractions and at rest. Cervix 0 cm dilated and effaced. station -3. presentationunknown per cervical exam. Membranes: ROM Plus test pending. Vital signs wnl. Patient reports pain and is coping. Action: Verbal consent for EFM. Triage assessment completed. Patient may meet criteria for early labor discharge. Response: Patient verbalized understanding of triage assessment. Will contact BONI Malloy with assessment and consideration of early labor discharge vs admission. * Venus Valladares CNM - 08/09/2024 10:54 PM CDT Outpatient/Triage Note: Patient Name: Rola Mckeon : 1990 Assessment: @ 35w4d here for evaluation of LOF. NST reactive +BV +Ketones Plan: -Wet prep, UA collected. Positive for BV. Will send rx for treatment -Orally hydrate - Discharge to home undelivered. Reviewed warning signs including decreased movement, leakingof fluid, vaginal bleeding, or signs of labor. Reviewed how to contact on-call provider. Follow-up in clinic in a few days with OB provider as scheduled or sooner as needed. All questions answered. Agrees with plan. Subjective: Rola Mckeon is a 34 year old arrived to [facility] with c/o leaking and feeling wet ???all day.?? She denies painful contractions, bleeding, vaginal irritation, odor or changes in movement. Objective: Vital signs: BP 132/89 (BP Location: Right arm, Patient Position: Semi-Faustin's, Cuff Size: Adult Regular) Pulse 80 Temp 100 ??F (37.8 ??C) (Temporal) Resp 20 Ht 1.524 m (5') Wt 73 kg (161 lb) LMP 11/28/2023 BMI 31.44 kg/m?? FHR: Category 1 Uterine contractions: 4 mild, unaware SVE: LTC per RN Results: Recent Results (from the past 168 hour(s)) Rupture of Membranes by ROM Plus Result Value Ref Range Status Rupture of Membranes by ROM Plus Negative Negative, Invalid, Suggest Repeat Final UA with Microscopic reflex to Culture Specimen: Urine, Clean Catch Result Value Ref Range Status Color Urine Yellow Colorless, Straw, Light Yellow, Yellow Final Appearance Urine Clear Clear Final Glucose Urine Negative Negative mg/dL Final Bilirubin Urine Negative Negative Final Ketones Urine Trace (A) Negative mg/dL Final Specific [place] Urine 1.031 (H) 1.001 - 1.030 Final Blood Urine Negative Negative Final pH Urine 6.5 5.0 - 7.0 Final Protein Albumin Urine 20 (A) Negative mg/dL Final Urobilinogen Urine <2.0 <2.0 mg/dL Final Nitrite Urine Negative Negative Final Leukocyte Esterase Urine Negative Negative Final Bacteria Urine Few (A) None Seen /HPF Final Mucus Urine Present (A) None Seen /LPF Final RBC Urine 1 <=2 /HPF Final WBC Urine 1 <=5 /HPF Final Squamous Epithelials Urine 2 (H) <=1 /HPF Final *Note: Due to a large number of results and/or encounters for the requested time period, some results have not been displayed. A complete set of results can be found in Results Review. Provider: Venus Valladares CNM documented in this encounter Plan of Treatment Not on file documented as of this encounter Goals Goal Patient Goal Type Associated Problems Recent Progress Patient-Stated? Author Create an action plan to increase financial stability Care Plan Patient expresses financial resource strain No Patt Gautam, [facility] Note: Barriers: Lack of housing Strengths: Engaged in care coordination Patient expressed understanding of goal: YES Action steps to achieve this goal: 1. I will review the resources provided by adult daycare coordinator 2. I will I will contact my care team with questions, concerns, or support needs. 3. I will use the clinic as a resource, and I understand I can contact my clinic with 24/7 after hours services available. Welder Shielded Metal Arc will remain available as needed. documented as of this encounter Procedures Procedure Name Priority Date/Time Associated Diagnosis Comments ROUTINE UA WITH MICROSCOPIC REFLEX TO CULTURE Routine 08/09/2024 11:36 PM CDT WET PREPARATION Routine 08/09/2024 11:36 PM CDT RUPTURE OF MEMBRANES BY ROM PLUS STAT 08/09/2024 10:46 PM CDT documented in this encounter Results * (ABNORMAL) Wet preparation (08/09/2024 11:36 PM CDT) Trichomonas Absent Absent JANAK 08/09/2024 11:57 PM CDT [facility] Yeast Present(A) Absent JANAK 08/09/2024 11:57 PM CDT [facility] Clue Cells Present(A) Absent JANAK 08/09/2024 11:57 PM CDT [facility] WBCs/high power field 3+(A) None JANAK 08/09/2024 11:57 PM CDT [facility] Swab VAGINAL STRUCTURE / Unknown Non-blood Collection / Unknown 08/09/2024 11:36 PM CDT 08/09/2024 11:44 PM CDT Venus Valladares CNM LAB - MICRO GENERAL ORDERA BLES Final Result [facility] [address] [facility] [place] [address], [facility] * (ABNORMAL) UA with Microscopic reflex to Culture (08/09/2024 11:36 PM CDT) Color Urine Yellow Colorless, Straw, Light Yellow, Yellow 08/09/2024 11:56 PM [facility] Appearance Urine Clear Clear 08/09/20 11:56 PM [facility] Glucose Urine Negative Negative mg/dL 08/09/2024 11:56 PM [facility] Bilirubin Urine Negative Negative 11:56 PM [facility] Ketones Urine Trace(A) Negative mg/dL 08/09/2024 11:56 PM [facility] Specific [place] Urine 1.031(H) 1.001 - 1.030 08/09/2024 11:56 PM [facility] Blood Urine Negative Negative 08/09/2024 11:56 PM [facility] pH Urine 6.5 5.0 - 7.0 08/09/2024 11:56 PM T [facility] Protein Albumin Urine 20(A) Negative mg/dL 08/09/2024 11:56 PM [facility] Urobilinogen Urine <2.0 <2.0 mg/dL 08/09/2024 11:56 PM [facility] Nitrite Urine Negative Negative 08/09/2024 11:56 PM [facility] Leukocyte Esterase Urine Negative Negative 08/09/2024 11:56 PM [facility] Bacteria Urine Few(A) None Seen /HPF 08/09/2024 11:56 PM [facility] Mucus Urine Present(A) None Seen /LPF 08/09/2024 11:56 PM [facility] RBC Urine 1 <=2 /HPF 08/09/2024 11:56 PM [facility] WBC Urine 1 <=5 /HPF 08/09/2024 11:56 PM [facility] Squamous Epithelials Urine 2(H) <=1 /HPF 08/09/2024 11:56 PM [facility] Urine URINE SPECIMEN OBTAINED BY CLEAN CATCH PROCEDURE / Unknown Non-blood Collection / Unknown 08/09/2024 11:36 PM CDT 08/09/2024 11:41 PM CDT Narrative [facility] - 08/09/2024 11:56 PM CDT Urine Culture not indicated Venus Valladares CNM LAB - URINE ORDERABLES Fin al Result Performing Organization Address [facility] de Phone Number [facility] [address] [place] [address] MARIEL Oconnor [address], [facility] * Rupture of Membranes by ROM Plus (08/09/2024 10:46 PM CDT) Rupture of Membranes by ROM Plus Negative Negative, Invalid, Suggest Repeat JANAK 08/09/2024 11:25 PM CDT [facility] Swab VAGINAL STRUCTURE / Unknown Non-blood Collection / Unknown 08/09/2024 10:46 PM CDT 08/09/2024 10:50 PM CDT [place] [facility] - 08/09/2024 11:25 PM CDT Lot#: [id number] ? Exp: 01/2027 It is recommended that the tests to detect rupture of the amniotic membranes should not be used without other clinical assessments to make clinical patient management decision. Venus Valladares CNM LAB - BODY FLUIDS ORDERABL ES Final Result Performing Organization Address [facility] Phone Number [facility] [address] [place], [place] [address]m[place] MARIEL Oconnor [facility], [facility] documented in this encounter Visit Diagnoses Diagnosis documented in this encounter Administered Medications Inactive Administered Medications - up to 3 most recent administrations Medication Order MAR Action Action Date Dose Rate Site acetaminophen (TYLENOL) tablet 650 mg 650 mg, Oral, EVERY 4 HOURS PRN, headaches, Starting on 08/09/24 at 2235, Maximum acetaminophen dose from all sources = 75 mg/kg/day not to exceed 4 grams/day., OB Preadmission documented in this encounter Active and Recently Administered Medications Times are shown in CDT. PRN Medication Order 08/08/2024 08/09/2024 08/10/2024 acetaminophen (TYLENOL) tablet 650 mg 650 mg, Oral, EVERY 4 HOURS PRN, headaches, Starting on 08/09/24 at 2235, Maximum acetaminophen dose from all sources = 75 mg/kg/day not to exceed 4 grams/day., OB Preadmission documented in this encounter Additional Health Concerns Active Problems Noted Date Diagnosed Date Patient expresses financial resource strain 03/23 documented as of this encounter Care Teams Escort Blind Relationship Specialty Start Date End Date Lakesha Padron APRN CNJose [address] [place] [address] PCP - General biofuels plant construction worker 07/21/24 No Ref-Primary, Physician 02/28/24 Farrukh Gaspar MD [address], [address] [address] Physician biofuels plant construction worker 02/28/[address] [facility] [address] Cad Design Engineer Dietitian 03/06/24 Tara Martin, [facility] Lead Welder Shielded Metal Arc 04/11/24 Farrukh Gaspar MD [address], [address] [address] Assigned OBGYN Provider 04/13/24 Padmini Calderon DO [address] [address] Physician biofuels plant construction worker 04/22/24 Padmini Calderon DO [address] [address] Assigned OBGYN Provider 07/14/24 documented as of this encounter
--- OUTSIDE RECORDS SUMMARY | 2024-08-29 10:53 | XMS_ITS | Encounter Summary ---
Author Organization [place] Address [address] [place] [address] Care Team Providers Care Net Software Developer Name Role Phone No Ref-Primary, Physician Unavailable [phone] Farrukh Gaspar MD Unavailable [phone] Unavailable Unavailab Tara Barbosa Unavailable [phone] Farrukh Gaspar MD Unavailable Padmini Calderon DO Unavailable Padmini Calderon DO Unavailable Lakesha Padron APRN [facility] Primary Care Provider [phone] Encounter Details Date Type Department Care Team (Latest Contact Info) Description 07/31/2024 Travel Social History Tobacco Use Types Packs/Day [...] on file 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 Author Create an action plan to increase financial stability Care Plan Patient expresses financial resource strain No Patt Gautam, [facility] Note: Barriers: Lack of housing Strengths: Engaged in care coordination Patient expressed understanding of goal: YES Action steps to achieve this goal: 1. I will review the resources provided by acute care registered nurse 2. I will I will contact my care team with questions, concerns, or support needs. 3. I will use the clinic as a resource, and I understand I can contact my clinic with 24/7 after hours services available. Engine Repairer will remain available as needed. documented as of this encounter Visit Diagnoses Not on filedocumented in this encounter Additional Health Concerns Active Problems Noted Date Diagnosed Date Patient expresses financial resource strain 03/23 documented as of this encounter Care Teams Net Software Developer Relationship Specialty Start Date End Date Lakesha Padron APRN [facility] [address] [place] [address] PCP - General health and safety tech 07/21/24 No Ref-Primary, Physician 02/28/24 Farrukh Gaspar MD [address], [address] [address] Physician health and safety tech 02/28/[address] [facility] [place] [address] Beer Cooler Dietitian 03/06/24 Tara Martin, [facility] Lead Engine Repairer 04/11/24 Farrukh Gaspar MD [address], [address] [address] Assigned OBGYN Provider 04/13/24 Padmini Calderon DO [address] [address] Physician health and safety tech 04/22/24 Padmini Calderon DO [address] [address] Assigned OBGYN Provider 07/14/24 documented as of this encounter
--- OUTSIDE RECORDS SUMMARY | 2024-08-29 10:53 | XMS_ITS | Encounter Summary ---
Author Organization [place] Address [address] [place] [address] Care Team Providers Care Reading Instructor Name Role Phone No Ref-Primary, Physician Unavailable [phone] Farrukh Gaspar MD Unavailable Kim Doll RD Unavailable Unavailab Tara Barbosa Unavailable [phone] Farrukh Gaspar MD Unavailable Padmini Calderon DO Unavailable Padmini Calderon DO Unavailable Lakesha Padron APRN [facility] Primary Care Provider + [phone] Encounter Details Date Type Department Care Team (Latest Contact Info) Description 08/09/2024 Travel Social History Tobacco Use Types Packs/Day [...] an overnight long term, or couch-surfing.) Yes 07/22/2024 Are you worried [...] on file 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 Author Create an action plan to increase financial stability Care Plan Patient expresses financial resource strain No Patt Gautam, [facility] Note: Barriers: Lack of housing Strengths: Engaged in care coordination Patient expressed understanding of goal: YES Action steps to achieve this goal: 1. I will review the resources provided by pet care associate 2. I will I will contact my care team with questions, concerns, or support needs. 3. I will use the clinic as a resource, and I understand I can contact my clinic with 24/7 after hours services available. Fur Dry Cleaner Hand will remain available as needed. documented as of this encounter Visit Diagnoses Not on filedocumented in this encounter Additional Health Concerns Active Problems Noted Date Diagnosed Date Patient expresses financial resource strain 03/23 documented as of this encounter Care Teams Reading Instructor Relationship Specialty Start Date End Date Lakesha Padron APRN [facility] [address] [place] [address] PCP - General productivity engineer 07/21/24 No Ref-Primary, Physician 02/28/24 Farrukh Gaspar MD [address], [address] [address] Physician productivity engineer 02/28/[address] [facility] [place] [address] Security Manager Dietitian 03/06/24 Tara Martin, [facility] Lead Fur Dry Cleaner Hand 04/11/24 Farrukh Gaspar MD [address], [address] [address] Assigned OBGYN Provider 04/13/24 Padmini Calderon DO [address] [address] Physician productivity engineer 04/22/24 Padmini Calderon DO [address] [address] Assigned OBGYN Provider 07/14/24 documented as of this encounter
--- OUTSIDE RECORDS SUMMARY | 2024-08-29 10:53 | XMS_ITS | Encounter Summary ---
Author Organization [place] Address [address] [place] [address] Care Team Providers Care Television Presenter Name Role Phone No Ref-Primary, Physician Unavailable [phone] Farrukh Gaspar MD Unavailable [phone] Unavailable Unavailab Tara Barbosa Unavailable [phone] Farrukh Gaspar MD Unavailable Padmini Calderon DO Unavailable Padmini Calderon DO Unavailable Lakesha Padron APRN [facility] Primary Care Provider + [phone] Encounter Details Date Type Department Care Team (Latest Contact Info) Description 08/14/2024 Travel Social History Tobacco Use Types Packs/Day [...] in an abandoned building, in an overnight senior care, or couch-surfing.) Yes 07/22/2024 Are you worried [...] on file 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 Author Create an action plan to increase financial stability Care Plan Patient expresses financial resource strain No Patt Gautam, [facility] Note: Barriers: Lack of housing Strengths: Engaged in care coordination Patient expressed understanding of goal: YES Action steps to achieve this goal: 1. I will review the resources provided by senior care provider 2. I will I will contact my care team with questions, concerns, or support needs. 3. I will use the clinic as a resource, and I understand I can contact my clinic with 24/7 after hours services available. Hair Boiler will remain available as needed. documented as of this encounter Visit Diagnoses Not on filedocumented in this encounter Additional Health Concerns Active Problems Noted Date Diagnosed Date Patient expresses financial resource strain 03/23 documented as of this encounter Care Teams Television Presenter Relationship Specialty Start Date End Date Lakesha Padron APRN [facility] [address] [place] [address] PCP - General fire crew specialist 07/21/24 No Ref-Primary, Physician 02/28/24 Farrukh Gaspar MD [address], [address] [address] Physician fire crew specialist 02/28/[address] [facility] [place] [address] Voice Studies Director Dietitian 03/06/24 Tara Martin, [facility] Lead Hair Boiler 04/11/24 Farrukh Gaspar MD [address], [address] [address] Assigned OBGYN Provider 04/13/24 Padmini Calderon DO [address] [address] Physician fire crew specialist 04/22/24 Padmini Calderon DO [address] [address] Assigned OBGYN Provider 07/14/24 documented as of this encounter
--- OUTSIDE RECORDS SUMMARY | 2024-08-29 10:53 | XMS_ITS | Encounter Summary ---
Author Organization [place] Address [address] [place] [address]. [place] [address] Care Team Providers Care Grout Worker Name Role Phone No Ref-Primary, Physician Unavailable Farrukh Gaspar MD Unavailable Kim Doll RD Unavailable Unavailab Tara Barbosa Unavailable Farrukh Gaspar MD Unavailable Padmini Calderon DO Unavailable Padmini Calderon DO Unavailable Lakesha Padron APRN [facility] Primary Care Provider [phone] Reason for Visit * Reason Comments Rule Out Pre-eclampsia Encounter Details Date Type Department Care Team (Latest Contact Info) Description 08/14/2024 12:11 PM CDT - 08/14/2024 1:56 PM CDT Hospital Encounter [facility] [address] [address] Pura Eaton APRN CNM [address] [place] [address] Insulin controlled gestational diabetes mellitus (GDM) in third trimester (Primary Dx) Discharge Disposition: Home or Self Care Social [...] in an abandoned building, in an overnight retirement, or couch-surfing.) Yes 07/22/2024 Are you worried [...] on file 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 Gender Identity Not on file Sexual Orientation Not on file documented as of this encounter Last Filed Vital Signs Vital Sign Reading Time Taken Comments Blood Pressure 126/80 08/14/2024 1:50 PM CDT Pulse 75 08/14/2024 12:21 PM CDT Temperature 36.6 ??C (97.8 ??F) 08/14/2024 12:21 PM C DT Respiratory Rate 20 08/14/2024 12:21 PM CDT Oxygen Saturation 94% 08/14/2024 1:50 PM CDT Inhaled Oxygen Concentration - - Weight - - Height - - Body Mass Index - - documented in this encounter Discharge Instructions * Discharge Instructions* Lorena Calzada RN - 08/14/2024 1:48 PM CDT * Attachments The following attachments cannot be sent through Care Everywhere. * (s) High Blood Pressure and : (Serbian) * Gestational Diabetes (Serbian) documented in this encounter Medications at Time [...] 2024 4 documented as of this encounter Progress Notes * Pura Eaton APRN CNM - 08/14/2024 1:54 PM CDT Outpatient/Triage Note: Patient Name: Rola Mckeon : 1990 Subjective: Rola Mckeon is a 34 year old at 36.1 weeks, who presented to [facility] for evaluation due tor recommendation of MFM and CNM given patient's symptoms. Denies leaking of fluid, bleeding, or changes in movement. Today at [facility], Rola reported that she has been feeling unwell the last few weeks - her blood sugarcontrol has been good but she states her blood pressures have been in the 140s-160s/100s and she has had a headache, vision changes, fatigue, nausea, and right upper quadrant pain. She states she hasbeen evaluated once or twice for preeclampsia but some of her symptoms are new. She reports having her blood pressure medications increased a lot recently -she is now on 400mg BID of Labetalol. [facility] discussed concern based on her blood pressures/symptoms for preeclampsia. Advised she go to triage for evaluation. She presented to clinic appt to discuss with Lakesha Padron CNM who agreed with recommendation for hospital assessment. [facility] reviewed that the goals of antihypertensive therapy in of < 140/90 reduce the riskof developing superimposed preeclampsia with severe features, abruption, delivery < 35 weeks, and / without an increased risk of growth restriction/small for gestation age infants. Discussed that in the event of new elevations in blood pressures after 20 weeks gestation, we would recommend thorough evaluation for preeclampsia prior to medication dose escalation. BPP 8 w/ MFM this AM NST reactive Triage BP's 137/82 140/78 110/69 129/74 121/71 126/80 Results: Recent Results (from the past week) Rupture of Membranes by ROM Plus Result [...] Urine Trace (A) Negative mg/dL Final Specific [place] Urine 1.031 (H) 1.001 - 1.030 Final [...] results can be found in Results Review. Assessment: @ 36w1d here for rule out superimposed pre-e. Plan: -HELLP panel collected and WNL. She reports her symptoms she mentioned to [facility] are not new. BP stable, no severe range readings, only 1 mildly elevated BP in triage. Continue labetalol 400mg BID. Patient to report any new symptoms or elevated BP readings. -With regards to timing of delivery if she does not have superimposed preeclampsia with severe features would be as follows: - Chronic hypertension on medications: [id number] - Chronic hypertension on medications requiring ongoing dose escalation/suboptimal control: [id number] - Discharge to home undelivered. Reviewed warning signs including decreased movement, leakingof fluid, vaginal bleeding, or signs of labor. Reviewed how to contact on-call provider. Follow-up in clinic with OB provider as scheduled or sooner as needed. All questions answered. Agrees with plan. Provider: Pura Eaton APRN CNM * Lorena Calzada RN - 08/14/2024 12:28 PM CDT Rola Mckeon, , 36w1d, arrived to triage, accompanied by boyfriend. Patient here with c/o headache, vision changes, RUQ pain, cHTN. Patient under care of Lakesha Padron, did consult provider prior to arriving to triage. Patient denies contractions. Patient unable to rate pain. Patient denies SROM. Patient denies vaginal bleeding. Patient reports s/s of preeclampsia. movement Present. Patient reports hx of diabetes, cHTN this . Patient oriented to room, call light in reach. EFM and toco applied. Triage orders placed. Provider updated, Pura Eaton CNM. Lorena Calzada RN documented in this encounter Plan of Treatment Not on file documented as of this encounter Goals Goal Patient Goal Type Associated Problems Recent Progress Patient-Stated? Author Create an action plan to increase financial stability Care Plan Patient expresses financial resource strain No Patt Gautam, PULP OPERATOR Note: Barriers: Lack of housing Strengths: Engaged in care coordination Patient expressed understanding of goal: YES Action steps to achieve this goal: 1. I will review the resources provided by lawn care worker 2. I will I will contact my care team with questions, concerns, or support needs. 3. I will use the clinic as a resource, and I understand I can contact my clinic with / after hours services available. Dumpling Machine Operator will remain available as needed. documented as of this encounter Procedures Procedure Name Priority Date/Time Associated Diagnosis Comments PROTEIN RANDOM URINE STAT 08/14/2024 12:57 PM CDT COMPREHENSIVE METABOLIC PANEL STAT 08/14/2024 12:38 PM CDT CBC WITH PLATELETS STAT 08/14/2024 12 :38 PM CDT documented in this encounter Results * Protein random urine (08/14/2024 12:57 PM CDT) Total Protein Urine mg/dL 19.7 mg/dL 08/14/2024 1:24 PM CDT [facility] Comment:The reference ranges have not been established in urine protein. The results should be integrated into the clinical context for interpretation. Total Protein Urine mg/mg Creat 0.11 0.00 - 0.20 mg/mg Cr 08/14/2024 1:24 PM CDT [facility] Creatinine Urine mg/dL 185.0 mg/dL 08/14/2024 1:24 PM CDT [facility] Comment:The reference ranges have not been established in urine creatinine. The results should be integrated into the clinical context for interpretation. Urine URINE SPECIMEN OBTAINED BY CLEAN CATCH PROCEDURE / Unknown Non-blood Collection / Unknown 08/14/2024 12:57 PM CDT 08/14/2024 1:02 PM CDT Lakesha Padron APRN CNM LAB - URINE ORDERABLES Fi nal Result [facility] [address] [place] [address], [facility] * (ABNORMAL) Comprehensive Metabolic Panel (08/14/2024 12:38 PM CDT) Sodium 136 135 - 145 mmol/L 08/14/2024 1:03 PM CDT [facility] Potassium 3.6 3.4 - 5.3 mmol/L 08/14/2024 1:03 PM CDT [facility] Carbon Dioxide (CO2) 20(L) 22 - 29 mmol/L 08/14/2024 1:03 PM [facility] Anion Gap 13 7 - 15 mmol/L 08/14/2024 1:03 PM [facility] Urea Nitrogen 6.0 6.0 - 20.0 mg/dL 08/14/2024 1:03 PM [facility] Creatinine 0.59 0.51 - 0.95 mg/dL 08/14/2024 1:03 PM [facility] GFR Estimate >90 >60 mL/min/1.7 3m2 08/14/2024 1:03 PM [facility] Comment:eGFR calculated usin 2020 CKD-EPI equation. Calcium 8.6(L) 8.8 - 10.4 mg/dL 08/14/2024 1:03 PM [facility] Comment:Reference intervals for this test were updated on 05/06/2024 to reflect our healthy population more accurately. There may be differences in the flagging of prior results with similar values performed with this method. Those prior results can be interpreted in the context of the updated reference intervals. Chloride 103 98 - 107 mmol/L 08/14/2024 1:03 PM [facility] Glucose 118(H) 70 - 99 mg/dL 08/14/2024 1:03 PM [facility] Alkaline Phosphatase 99 40 - 150 U/L 08/14/2024 1:03 PM [facility] AST 19 0 - 45 U/L 08/14/2024 1:03 PM [facility] ALT 13 0 - 50 U/L 08/14/2024 1:03 PM [facility] Protein Total 6.1(L) 6.4 - 8.3 g/dL 08/14/2024 1:03 PM [facility] Albumin 3.4(L) 3.5 - 5.2 g/dL 08/14/2024 1:03 PM [facility] Bilirubin Total 0.4 <=1.2 mg/dL 08/14/2024 1:03 PM [facility] Blood BLOOD SPECIMEN / Unknown Venipuncture / Unknown 08/14/2024 12:38 PM CDT 08/14/2024 12:42 PM CDT Lakesha Padron APRN CNM LAB - BLOOD ORDERABLES Fi nal Result [facility] [address] [place] [address], [facility] * (ABNORMAL) CBC with platelets (08/14/2024 12:38 PM CDT) [facility] Signature WBC Count 9.7 4.0 - 11.0 10e3/uL 08/14/2024 12:48 PM CDT [facility] RBC Count 4.12 3.80 - 5.20 10e6/uL 08/14/2024 12:48 PM CDT [facility] Hemoglobin 10.8(L) 11.7 - 15.7 g/dL 08/14/2024 12:48 PM CDT [facility] Hematocrit 32.6(L) 35.0 - 47.0 % 08/14/2024 12:48 PM CDT [facility] MCV 79 78 - 100 fL 08/14/2024 12:48 PM CDT [facility] MCH 26.2(L) 26.5 - 33.0 pg 08/14/2024 12:48 PM CDT [facility] MCHC 33.1 31.5 - 36.5 g/dL 08/14/2024 12:48 PM CDT [facility] RDW 12.8 10.0 - 15.0 % 08/14/2024 12:48 PM CDT [facility] Platelet Count 188 150 - 450 10e3/uL 08/14/2024 12:48 PM CDT [facility] Blood BLOOD SPECIMEN / Unknown Venipuncture / Unknown 08/14/2024 12:38 PM CDT 08/14/2024 12:42 PM CDT Lakesha Padron APRN CNM LAB - BLOOD ORDERABLES Fi nal Result [facility] [address] [place] [facility], [facility] documented in this encounter Visit Diagnoses Diagnosis Insulin controlled gestational diabetes mellitus (GDM) in third trimester- Primary documented in this encounter Administered Medications Inactive Administered Medications - up to 3 most recent administrations Medication Order MAR Action Action Date Dose Rate Site lactated ringers infusion at 10-125 mL/hr, Intravenous, CONTINUOUS, Titrate lactated ringers rate to obtain total IV intake of no more than 125 mL/hour, Starting on Maria Luz 08/14/24 at 1230, Until Maria Luz 08/14/24 at 1556 lidocaine (LMX4) cream Topical, EVERY 1 HOUR PRN, pain, with VAD insertion, Starting on Maria Luz 08/14/24 at 1227, Apply at least 30 minutes prior to VAD insertion in divided doses as needed for size of site for insertion. MAX Dose: 2.5 g (?? of 5 g tube) Do NOT give if patient has a history of allergy to any local anesthetic or any frank product. Do NOT use both lidocaine intradermal/subcutaneous injection and the lidocaine cream on the same site. lidocaine 1 % 0.1-1 mL 0.1-1 mL, Other, EVERY 1 HOUR PRN, mild pain with VAD insertion, Starting on Maria Luz 08/14/24 at 1227, MAX dose 1 mL subcutaneous OR intradermal along the side of the vein in divided doses as needed for VAD insertion. Do NOT give if patient has a history of allergy to any local anesthetic or any frank product. Do NOT use both lidocaine intradermal/subcutaneous injection and the lidocaine cream on the same site. sodium chloride (PF) 0.9% PF flush 3 mL 3 mL, Intracatheter, EVERY 8 HOURS, First dose on Maria Luz 08/14/24 at 1230, to lock peripheral IV dormant line sodium chloride (PF) 0.9% PF flush 3 mL 3 mL, Intracatheter, EVERY 1 MIN PRN, line flush, other, to ensure patency or to lock dormant line, Starting on Maria Luz 08/14/24 at 1227 documented in this encounter Active and Recently Administered Medications Times are shown in CDT. Scheduled Medication Order 08/12/2024 08/13/2024 08/14/2024 sodium chloride (PF) 0.9% PF flush 3 mL 3 mL, Intracatheter, EVERY 8 HOURS, First dose on Maria Luz 08/14/24 at 1230, to lock peripheral IV dormant line 1230 (Canceled Entry - Provider: Orders Generic Provider - Comment: Automatically canceled at discontinue of medication order) Continuous Medication Order 08/12/2024 08/13/2024 08/14/2024 lactated ringers infusion at 10-125 mL/hr, Intravenous, CONTINUOUS, Titrate lactated ringers rate to obtain total IV intake of no more than 125 mL/hour, Starting on Maria Luz 08/14/24 at 1230, Until Maria Luz 08/14/24 at 1556 1230 (Canceled Entry - Provider: Orders Generic Provider - Comment: Automatically canceled at discontinue of medication order) PRN Medication Order 08/12/2024 08/13/2024 08/14/2024 lidocaine (LMX4) cream Topical, EVERY 1 HOUR PRN, pain, with VAD insertion, Starting on Maria Luz 08/14/24 at 1227, Apply at least 30 minutes prior to VAD insertion in divided doses as needed for size of site for insertion. MAX Dose: 2.5 g (?? of 5 g tube) Do NOT give if patient has a history of allergy to any local anesthetic or any frank product. Do NOT use both lidocaine intradermal/subcutaneous injection and the lidocaine cream on the same site. lidocaine 1 % 0.1-1 mL 0.1-1 mL, Other, EVERY 1 HOUR PRN, mild pain with VAD insertion, Starting on Maria Luz 08/14/24 at 1227, MAX dose 1 mL subcutaneous OR intradermal along the side of the vein in divided doses as needed for VAD insertion. Do NOT give if patient has a history of allergy to any local anesthetic or any frank product. Do NOT use both lidocaine intradermal/subcutaneous injection and the lidocaine cream on the same site. sodium chloride (PF) 0.9% PF flush 3 mL 3 mL, Intracatheter, EVERY 1 MIN PRN, line flush, other, to ensure patency or to lock dormant line, Starting on Maria Luz 08/14/24 at 1227 documented in this encounter Additional Health Concerns Active Problems Noted Date Diagnosed Date Patient expresses financial resource strain 03/23 documented as of this encounter Care Teams Grout Worker Relationship Specialty Start Date End Date Lakesha Padron APRN CNM [address] [place] [address] PCP - General plate slitter and inspector 07/21/24 No Ref-Primary, Physician 02/28/24 Farrukh Gaspar MD [address], [address] [address] Physician plate slitter and inspector 02/28/[address] [facility] [place] [address] Adjunct Instructor In Economics Dietitian 03/06/24 Tara Martin, [facility] Lead Dumpling Machine Operator 04/11/24 Farrukh Gaspar MD [address], [address] [address] Assigned OBGYN Provider 04/13/24 Padmini Calderon DO [address] [address] Physician plate slitter and inspector 04/22/24 Padmini Calderon DO [address] [address] Assigned OBGYN Provider 07/14/24 documented as of this encounter
--- OUTSIDE RECORDS SUMMARY | 2024-08-29 10:53 | XMS_ITS | Encounter Summary ---
Author Organization [place] Address [facility] [facility] [place] [address] Care Team Providers Care Building Attendant Name Role Phone No Ref-Primary, Physician Unavailable [phone] Farrukh Gaspar MD Unavailable Kim Doll RD Unavailable Unavailab Tara Barbosa [facility] Unavailable [phone] Farrukh Gaspar MD Unavailable Padmini Calderon DO Unavailable Padmini Calderon DO Unavailable Esther Laurent APRN [facility] Primary Care Provider [phone] Reason for Referral * Diagnostic Imaging Ultrasound (Routine) - Pending Review Specialty Diagnoses / Procedures Referred By Contac t Referred To Contact Radiology. Diagnoses with type 2 diabetes mellitus in third trimester Procedures [facility] BPP Single Dacia Alvarez MD [address] [place] [address] Phone: tel: fax: Referral ID Status Reason Start Date Expiration Date V isits Requested Visits Authorized [id number] Pending Review 07/28/2024 07/28/2025 1 1 Encounter Details Date Type Department Care Team (Late st Contact Info) Description 07/28/2024 Orders Only [facility] [place] [address] [place] [address] Nasreen Dumont, RN with type 2 diabetes mellitus in third trimester (Primary Dx) Social History Tobacco Use Types Packs/Day [...] abandoned building, in an overnight halfway, or couch-surfing.) Yes 07/22/2024 Are you worried [...] on file 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 I will I will contact my care team with questions, concerns, or support needs. 3. I will use the clinic as a resource, and I understand I can contact my clinic with 24/7 after hours services available. In House Counsel will remain available as needed. documented as of this encounter Results * M BPP Single (07/31/2024 3:27 PM CDT) Anatomical Region Laterality Modality Ultrasound 07/31/2024 3:14 PM CDT Impressions 07/31/2024 4:48 PM CDT IMPRESSION ----- 1. Mcmahan at 34w 1d gestational age. 2. The amniotic fluid volume was elevated consistent with mild polyhydramnios. 3. The BPP was reassuring. Narrative 07/31/2024 4:48 PM CDT ?BPP ----- Pat. Name: ROLA MCKEON ? Study Date: ??07/31/2024 3:14pm Pat. NO: ??[id number] ?Referring ??MD: ESTHER LAURENT Site: ? Electronics Scale Tester: Migdalia Shanita [facility] : ??1990 ?Age: ?? 34 ----- INDICATION ----- Type 2 Diabetes METHOD ----- Transabdominal ultrasound examination. View: Sufficient ----- Mcmahan . Number of fetuses: 1 DATING ----- ? Date ?Details ?Gest. age ?CARLOS LMP ?11/28/2023 ? 35 w + 1 d ? 09/03/2024 Previous U/S ?01/25/2024 ?GA, GA 7 w + 2 d ? 34 w + 1 d ? 09/10/2024 Assigned dating ?based on ultrasound (GA), selected on 07/31/2024 ?34 w + 1 d ? 09/10/2024 GENERAL EVALUATION ----- Cardiac activity present. FHR 148 bpm. movements: visualized. Presentation: cephalic Placenta: Anterior Umbilical cord: previously studied AMNIOTIC FLUID ASSESSMENT ----- Amount of AF: Mild, Polyhydramnios MVP 8.6 cm. JONH 24.7 cm. Q1 5.3 cm, Q2 5.1 cm, Q3 5.6 cm, Q4 8.7 cm BIOPHYSICAL PROFILE ----- 2: breathing movements 2: Gross body movements 2: tone 2: Amniotic fluid volume 8/8 Biophysical profile score Interpretation: normal RECOMMENDATION ----- Thank-you for referring your patient for surveillance. Recommend twice weekly surveillance as previously in addition to serial evaluation of growth due to diabetes in . Return to primary provider for continued care. If you have questions regarding today's evaluation or if we can be of further service, please contact the [facility]. anomalies may be present but not detected Procedure Note Dacia Alvarez MD - 07/31/2024 BPP ----- Pat. Name: ROLA MCKEON Study Date: 07/31/2024 3:14pm Pat. NO: [id number] Referring MD: ESTHER LAURENT Site: Electronics Scale Tester: Migdalia Diehl RDMS : 1990 Age: 34 ----- INDICATION ----- Type 2 Diabetes METHOD ----- Transabdominal ultrasound examination. View: Sufficient ----- Mcmahan . Number of fetuses: 1 DATING ----- DateDetailsGest. age CARLOS LMP w + 1 d 09/03/2024 Previous U/S 01/25/2024 GA, GA7 w + 2 d34 w + 1 d 09/10/2024 Assigned dating based on ultrasound (GA), selected on07/31/2024 34w + 1 d 09/10/2024 GENERAL EVALUATION ----- Cardiac activity present. FHR 148 bpm. movements: visualized.Presentation: cephalic Placenta: Anterior Umbilical cord: previously studied AMNIOTIC FLUID ASSESSMENT ----- Amount of AF: Mild, Polyhydramnios MVP 8.6 cm. JOHN 24.7 cm. Q1 5.3 cm, Q2 5.1 cm, Q3 5.6 cm, Q4 8.7 cm BIOPHYSICAL PROFILE ----- 2: breathing movements 2: Gross body movements 2: tone 2: Amniotic fluid volume 8/8 Biophysical profile score Interpretation: normal RECOMMENDATION ----- Thank-you for referring your patient for surveillance. Recommend twice weekly surveillance as previously in addition toserial evaluation of growth due to diabetes in . Return to primary provider for continued care. If you have questions regarding today's evaluation or if we can be offurther service, please contact the [facility]. anomalies may be present but not detected IMPRESSION ----- 1. Mcmahan at 34w 1d gestational age. 2. The amniotic fluid volume was elevated consistent with mildpolyhydramnios. 3. The BPP was reassuring. [facility] ORDERAB[facility] Edited Re sult - Final documented in this encounter Visit Diagnoses Diagnosis with type 2 diabetes mellitus in third trimester- Primary with type 2 diabetes mellitus in third trimester documented in this encounter Additional Health Concerns Active Problems Noted Date Diagnosed Date Patient expresses financial resource strain 03/23 documented as of this encounter Care Teams Building Attendant Relationship Specialty Start Date End Date Nereida EstherFATOU boone CNM [address] [place] [address] PCP - General blue leather sorter 07/21/24 No Ref-Primary, Physician 02/28/24 Farrukh Gaspar MD [address] [address] Physician blue leather sorter 02/28/[address] [place] [address] Pediatric Registered Nurse Dietitian 03/06/24 Tara Martin, [facility] Lead In House Counsel 04/11/24 Farrukh Gaspar MD [address], [address] [address] Assigned OBGYN Provider 04/13/24 Padmini Calderon DO [address] [address] Physician blue leather sorter 04/22/24 Padmini Calderon DO [address] [facility] [address] [place] [address] Assigned OBGYN Provider 07/14/24 documented as of this encounter
--- OUTSIDE RECORDS SUMMARY | 2024-08-29 10:53 | XMS_ITS | Encounter Summary ---
Author Organization [place] Address [address] [place] [address] Care Team Providers Care Cma Or Lpn Name Role Phone No Ref-Primary, Physician Unavailable [phone] Farrukh Gaspar MD Unavailable [phone] Unavailable Unavailab Tara Barbosa Unavailable [phone] Farrukh Gaspar MD Unavailable Padmini Calderon DO Unavailable Padmini Calderon DO Unavailable Lakesha Padron APRN [facility] Primary Care Provider [phone] Encounter Details Date Type Department Care Team (Latest Contact Info) Description 08/04/2024 Travel Social History Tobacco Use Types Packs/Day [...] an abandoned building, in an overnight senior living, or couch-surfing.) Yes 07/22/2024 Are you worried [...] on file 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 Author Create an action plan to increase financial stability Care Plan Patient expresses financial resource strain No Patt Gautam, [facility] Note: Barriers: Lack of housing Strengths: Engaged in care coordination Patient expressed understanding of goal: YES Action steps to achieve this goal: 1. I will review the resources provided by managed care coordinator 2. I will I will contact my care team with questions, concerns, or support needs. 3. I will use the clinic as a resource, and I understand I can contact my clinic with 24/7 after hours services available. Photonic Laboratory Technician will remain available as needed. documented as of this encounter Visit Diagnoses Not on filedocumented in this encounter Additional Health Concerns Active Problems Noted Date Diagnosed Date Patient expresses financial resource strain 03/23 documented as of this encounter Care Teams Cma Or Lpn Relationship Specialty Start Date End Date Lakesha Padron APRN [facility] [address] [place] [address] PCP - General cyber incident handler 07/21/24 No Ref-Primary, Physician 02/28/24 Farrukh Gaspar MD [address], [address] [address] Physician cyber incident handler 02/28/[address] [facility] [place] [address] Director Critical Care Dietitian 03/06/24 Tara Martin, [facility] Lead Photonic Laboratory Technician 04/11/24 Farrukh Gaspar MD [address], [address] [address] Assigned OBGYN Provider 04/13/24 Padmini Calderon DO [address] [address] Physician cyber incident handler 04/22/24 Padmini Calderon DO [address] [address] Assigned OBGYN Provider 07/14/24 documented as of this encounter
--- OUTSIDE RECORDS SUMMARY | 2024-08-29 10:53 | XMS_ITS | Encounter Summary ---
Author Organization [place] Address [address] [place] [address]. [place] [address] Care Team Providers Care Pottery Striper Name Role Phone No Ref-Primary, Physician Unavailable Farrukh Gaspar MD Unavailable Kim Doll RD Unavailable Unavailab Tara Barbosa [facility] Unavailable [phone] Farrukh Gaspar MD Unavailable Padmini Calderon DO Unavailable Padmini Calderon DO Unavailable Lakesha Padron APRN [facility] Primary Care Provider [phone] Reason for Visit * Reason Comments Ultrasound BPP: CHTN on medicat ion, DM 2 poorly controlled Encounter Details Date Type Department Care Team (Late st Contact Info) Description 07/31/2024 3:30 PM CDT Office Visit [facility] [address] [address] Dacia Alvarez MD [address] [facility] [address] [place] [address] with type 2 diabetes mellitus [...] on file Legal Sex Female 5:03 AM DIRECTOR OF VALUATION Gender Identity Not on file Sexual Orientation Not on file documented as of this encounter Progress Notes * Dacia Alvarez MD - 07/31/2024 3:30 PM CDT The patient was seen for an ultrasound in the [facility] clinic today. For a detailed report of the ultrasound examination, please see the ultrasound report which can be found under the imaging tab. If you have questions regarding today's evaluation or if we can be of further service, please contact the [facility] Center. Dacia Alvarez M.D. Maternal -Medicine Specialist documented in this encounter Nursing Notes * Nasreen Dumont RN - 07/31/2024 3:30 PM CDT Patient presents to [facility] for BPP at 34w1d due to CHTN on medication, DM 2 poorly controlled. Positive movement. Denies LOF, vaginal bleeding or cramping/contractions. Patient states that her Labetalol dose just got increased today. SBAR given to [facility] , see their note in Epic. documented in this encounter Plan of Treatment Not on file documented as of this encounter Goals Goal Patient Goal Type Associated Problems Recent Progress Patient-Stated? Author Create an action plan to increase financial stability Care Plan Patient expresses financial resource strain No Patt Gautam, [employer] Note: Barriers: Lack of housing Strengths: Engaged in care coordination Patient expressed understanding of goal: YES Action steps to achieve this goal: 1. I will review the resources provided by caretaker resort 2. I will I will contact my care team with questions, concerns, or support needs. 3. I will use the clinic as a resource, and I understand I can contact my clinic with 24/7 after hours services available. Table Top Tile Setter will remain available as needed. documented as of this encounter Visit Diagnoses Diagnosis with type 2 diabetes mellitus in third trimester- Primary documented in this encounter Additional Health Concerns Active Problems Noted Date Diagnosed Date Patient expresses financial resource strain 03/23 documented as of this encounter Care Teams Pottery Striper Relationship Specialty Start Date End Date Lakesha Padron APRN CN[facility] [address] [place] [address] PCP - General sales order clerk 07/21/24 No Ref-Primary, Physician 02/28/24 Farrukh Gaspar MD [address], [address] [address] Physician sales order clerk 02/28/[address] [facility] [place] [address] Train Control Electronic Technician Dietitian 03/06/24 Tara Martin, [facility] Lead Table Top Tile Setter 04/11/24 Farrukh Gaspar MD [address], [address] [address] Assigned OBGYN Provider 04/13/24 Padmini Calderon DO [address] [address] Physician sales order clerk 04/22/24 Padmini Calderon DO [address] [address] Assigned OBGYN Provider 07/14/24 documented as of this encounter
--- OUTSIDE RECORDS SUMMARY | 2024-08-29 10:53 | XMS_ITS | Encounter Summary ---
Author Organization [place] Address [facility] [place] [address] Care Team Providers Care Trimmer And Reinforcer Name Role Phone No Ref-Primary, Physician Unavailable [phone] Farrukh Gaspar MD Unavailable [phone] Unavailable Unavailab Tara Barbosa [facility] Unavailable Farrukh Gaspar MD Unavailable Padmini Calderon DO Unavailable Padmini Calderon DO Unavailable Esther Laurent APRN [facility] Primary Care Provider Reason for Referral * Diagnostic Imaging Ultrasound (Routine) - Pending Review Specialty Diagnoses / Procedures Referred By Contac t Referred To Contact Radiology. Diagnoses with type 2 diabetes mellitus in third trimester Procedures [facility] BPP Single Dacia Alvarez MD [address] [facility] [address] [place] [address] Phone: tel: fax: Referral ID Status Reason Start Date Expiration Date V isits Requested Visits Authorized [id number] Pending Review 07/28/2024 07/28/2025 1 1 Reason for Visit * Diagnostic Imaging Ultrasound (Routine) - Pending Review Specialty Diagnoses / Procedures Referred By Contac t Referred To Contact Radiology. Diagnoses with type 2 diabetes mellitus in third trimester Procedures M[facility] BPP Single Dacia Alvarez MD [address] [place] [address] [place] [address] Phone: tel: fax: Referral ID Status Reason Start Date Expiration Date V isits Requested Visits Authorized [id number] Pending Review 07/28/2024 07/28/2025 1 1 Encounter Details Date Type Department Care Team (Latest Contact Info) Description 07/31/2024 3:00 PM CDT - 07/31/2024 11:59 PM CDT Hospital Encounter [facility] [address] [address] Dacia Alvarez MD [address] [place] [address] [place] [address] with type 2 diabetes mellitus [...] in an abandoned building, in an overnight assisted, or couch-surfing.) Yes 07/22/2024 Are you worried [...] on file Legal Sex Female 5: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 I will review the resources provided by live in caregiver 2. I will I will contact my care team with questions, concerns, or support needs. 3. I will use the clinic as a resource, and I understand I can contact my clinic with 24/7 after hours services available. Inspection Machine Tender will remain available as needed. documented as of this encounter Procedures Procedure Name Priority Date/Time Associated Diagnosis Comments ABDULAZIZ BPP SINGLE Routine 07/31/2024 3:27 PM CDT with type 2 diabetes mellitus in third trimester documented in this encounter Results * [facility] BPP Single (07/31/2024 3:27 PM CDT) Anatomical Region Laterality Modality Ultrasound 07/31/2024 3:14 PM CDT Impressions 07/31/2024 4:48 PM CDT IMPRESSION ----- 1. Mcmahan at 34w 1d gestational age. 2. The amniotic fluid volume was elevated consistent with mild polyhydramnios. 3. The BPP was reassuring. Narrative 07/31/2024 4:48 PM CDT ?BPP ----- Pat. Name: ROLA MCKEON ? Study Date: ??07/31/2024 3:14pm Pat. NO: ??[id number] ?Referring ??: ESTHER LAURENT Site: ? Superintendent Drilling And Production: Migdalia Diehl RDMS : ??1990 ?Age: ?? 34 ----- [...] MD - 07/31/2024 BPP ----- Pat. Name: VERITO, ROLA Study Date: 07/31/2024 3:14pm Pat. NO: [id number] Referring MD: ESTHER LAURENT Site: Superintendent Drilling And Production: Migdalia Diehl RDMS : 1990 Age: 34 [...] with mildpolyhydramnios. 3. The BPP was reassuring. us Dacia Alvarez MD [facility] ORDERABLES Edited Re sult - Final documented in this encounter Visit Diagnoses Diagnosis with type 2 diabetes mellitus in third trimester documented in this encounter Additional Health Concerns Active Problems Noted Date Diagnosed Date Patient expresses financial resource strain 03/23 documented as of this encounter Care Teams Trimmer And Reinforcer Relationship Specialty Start Date End Date Esther Laurent APRN [facility] [address] [place] [address] PCP - General bounty trapper 07/21/24 No Ref-Primary, Physician 02/28/24 Farrukh Gaspar MD [address], [address] [address] Physician bounty trapper 02/28/[address] [place] [address] Cleaning Supervisor Dietitian 03/06/24 Tara Martin, [facility] Lead Inspection Machine Tender 04/11/24 Farrukh Gaspar MD [address], [address] [address] Assigned OBGYN Provider 04/13/24 Padmini Calderon DO [address] [address] Physician bounty trapper 04/22/24 Padmini Calderon DO [address] [address] Assigned OBGYN Provider 07/14/24 documented as of this encounter
--- OUTSIDE RECORDS SUMMARY | 2024-08-29 10:53 | XMS_ITS | Encounter Summary ---
Author Organization [place] Address [address] [place] [address]. [place] [address] Care Team Providers Care Reliability Technicians Name Role Phone No Ref-Primary, Physician Unavailable Farrukh Gaspar MD Unavailable [phone] Unavailable Unavailab Tara Barbosa [facility] Unavailable Farrukh Gaspar MD Unavailable Padmini Calderon DO Unavailable Padmini Calderon DO Unavailable Lakesha Padron APRN [facility] Primary Care Provider [phone] Reason for Visit * Reason Comments Ultrasound BPP: GDMA2, CHTN, mi ld poly Encounter Details Date Type Department Care Team (Late st Contact Info) Description 08/04/2024 4:00 PM CDT Office Visit [facility] [address] [place] [address] Mohini Whitlock MD [address] [facility] [address] [place], [place] [id number] Audi Matos MD [address] [facility] [address] [place] [address] with type 2 diabetes mellitus in third trimester (Primary Dx); Chronic hypertension in ; Polyhydramnios affecting in third trimester Social History [...] on file Legal Sex Female 5:03 AM 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 Audi Matos M.D. documented in this encounter Nursing Notes * Mila Mata RN - 08/04/2024 4:00 PM CDT Patient presents to [facility] for BPP at 34w5d due to GDMA2, CHTN, mild poly. Denies LOF, vaginal bleeding, cramping/contractions. SBAR given to [facility] , see their note in Epic. documented in this encounter Plan of Treatment Not on file documented as of this encounter Goals Goal Patient Goal Type Associated Problems Recent Progress Patient-Stated? Author Create an action plan to increase financial stability Care Plan Patient expresses financial resource strain No Patt Gautam, QUALITY ENGINEERING MANAGER Note: Barriers: Lack of housing Strengths: Engaged in care coordination Patient expressed understanding of goal: YES Action steps to achieve this goal: 1. I will review the resources provided by career coach 2. I will I will contact my care team with questions, concerns, or support needs. 3. I will use the clinic as a resource, and I understand I can contact my clinic with 24/7 after hours services available. Retirement Plan Counselor will remain available as needed. documented as of this encounter Visit Diagnoses Diagnosis with type 2 diabetes mellitus in third trimester- Primary Chronic hypertension in Benign essential hypertension complicating , childbirth, and the puerperium, unspecified as to episode of care Polyhydramnios affecting in third trimester documented in this encounter Additional Health Concerns Active Problems Noted Date Diagnosed Date Patient expresses financial resource strain 03/23 documented as of this encounter Care Teams Reliability Technicians Relationship Specialty Start Date End Date Lakesha Padron APRN CNM [address] [place], [place] [id number] PCP - General mechanical estimator 07/21/24 No Ref-Primary, Physician 02/28/24 Farrukh Gaspar MD [address], [address] [address] Physician mechanical estimator 02/28/24 Kim Doll, [place] [address] [facility] [place] [address] Healthcare Administration Intern Dietitian 03/06/24 Tara Martin, [facility] Lead Retirement Plan Counselor 04/11/24 Farrukh Gaspar MD [address], [address] [address] Assigned OBGYN Provider 04/13/24 Padmini Calderon DO [address] [address] Physician mechanical estimator 04/22/24 Padmini Calderon DO [address] [address] Assigned OBGYN Provider 07/14/24 documented as of this encounter
--- OUTSIDE RECORDS SUMMARY | 2024-08-29 10:53 | XMS_ITS | Encounter Summary ---
Author Organization [place] Address [address] [place] [address] Care Team Providers Care Bowling Or Skating Front Desk Clerk Name Role Phone No Ref-Primary, Physician Unavailable [phone] Farrukh Gaspar MD Unavailable Kim Doll RD Unavailable Unavailab Tara Barbosa [employer] Unavailable [phone] Farrukh Gaspar MD Unavailable [phone] Padmini Calderon DO Unavailable Padmini Calderon DO Unavailable Lakesha Padron APRN [facility] Primary Care Provider [phone] Reason for Visit * Reason Comments Follow Up Encounter Details Date Type Department Care Team (Late st Contact Info) Description 08/06/2024 2:30 PM CDT [facility] Visit [facility] [address] 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 Insulin controlled gestational diabetes mellitus (GDM) in third trimester HPI Rola Mckeon is a very pleasant 33 year old old female who presents for GESTATIONAL Diabetes Mellitus. She is currently 33w . Due date is 09/10/24 Diagnosed with GDM based on an OGTT. She hashad GDM in prior pregnancies. Current carbohydrate intake:consistent with recommendations of 30g-60g-60g. I have reviewed her blood glucose logs and note that the: Fasting readings are:above range on current regimen Postprandial readings are:above range on current regimen Current Levemir dose: 54 Current Prandial insulin: 10 units with extra CHO Blood glucose logs/meter brought in and data reviewed and incorporated into decision-making. Planned delivery at: OBGYN: Lakesha Padron Therapy/Interventions in the past: She has been seen by the Desk Pen Set Assembler- and has received instruction on carbohydrate counting and consistency. Records from referring provider and other sources have also been reviewed and incorporated into decision-making. TODAY: Rola is seen via video Visit in follow-up for GDM. She provides BG today and they look fairly good. She did have a 78 FBS, which was caused by not enough CHO at dinner. No changes to her insulin doses are warranted today. She reports that she will be getting induced at the end of the month, however has just seen OB and all things have not yet been settled. Baby is moving appropriately, and she is having no swelling at the present time. BS Jul pth 2023 F-78 B-114 L -124 D-150 B-108 L-110 D-139 B-108 L-110 D-139 B-132 L-118 D-120 B-121 L-103 D-90 B-124 L-111 D-148 15 F B-140 L-120 D-87 Past Medical History Patient Active Problem List Diagnosis Asthma Gastroesophageal reflux Migraine Supervision of with other poor reproductive or obstetric history, second trimester Insulin controlled gestational diabetes mellitus (GDM) in third trimester Previous delivery, antepartum condition or complication History of delivery, currently Hx of preeclampsia, prior , currently Hypertension, essential, complicating Encounter for triage in patient Gestational hypertension, antepartum Murmur Rhinitis, allergic Vitamin D deficiency Pre-eclampsia RUQ pain Past Surgical History Past Surgical History: Procedure Laterality Date SECTION 07/19/2022 Family History Family History Problem Relation Age of Onset Hypertension Mother Thyroid Disease Mother Hypertension Father Heart block Father Pancreatic Cancer Maternal Grandmother Social History Social History Tobacco Use Smoking status: Never Smokeless tobacco: Never Substance Use Topics Alcohol use: Never Drug use: Never Review of Systems Patient has no polyuria or polydipsia, no chest pain, dyspnea or TIA's, no numbness, tingling or pain in extremities Remainder negative except as noted in HPI. Vital Signs LMP 11/28/2023 Wt Readings from Last 3 Encounters: 07/21/24 72.6 kg (160 lb) 06/13/24 72.2 kg (159 lb 3.2 oz) 05/14/24 70.8 kg (156 lb) Physical Exam Constitutional: Well developed, Well nourished HENT: Normocephalic, Neck: normal in appearance Eyes: PERRL, Conjunctiva pink Respiratory: No respiratory distress Skin: No acanthosis nigricans, lipoatrophy or lipodystrophy Neurologic: Alert & oriented x 3, nonfocal Psychiatric: Affect, Mood, Insight appropriate Assessment 1. Insulin controlled gestational diabetes mellitus (GDM) in third trimester Plan 1. GESTATIONAL DIABETES- Adjust dose as follows: -Levemir insulin 50 units. Increase by 2 units every 2 days to keep fasting blood glucose below 95mg/dL -Novolog 6 units with breakfast, 10 units with non-egg meals -Novolog 4 units with lunch -Novolog 4 units with dinner -Increase by 2 units every 2 days to keep 1 hour after meal blood glucose less than 140mg/dL We reviewed glucose goals of fasting blood glucose <95 mg/dL and 1 hour post prandial blood glucose of <140 mg/dL. Monitor blood sugar 4 times daily: Fasting and 1 hour after each meal. Contact this clinic [phone] if blood glucose is not within the above- mentioned goals. We discussed the importance of excellent glycemic control during to limit complications such as macrosomia, shoulder dystocia, hypoglycemia and hyperbilirubinemia. I have discussed the patient's increased risk of recurrent GDM and/or development of type 2 diabetes later inlife. Follow-up in 2 weeks. Teagan Mark NP 08/07/2024 Lab Results No results found for: HGBA1C, CREATININE, MICROALBUR No results found for: CHOL, HDL, TRIG, CHOLHDL @LASTLFT@ Current Medications documented in this encounter Plan of Treatment Not on file documented as of this encounter Goals Goal Patient Goal Type Associated Problems Recent Progress Patient-Stated? Author Create an action plan to increase financial stability Care Plan Patient expresses financial resource strain No Patt Gautam ASSEMBLER AND TESTER ELECTRONICS Note: Barriers: Lack of housing Strengths: Engaged in care coordination Patient expressed understanding of goal: YES Action steps to achieve this goal: 1. I will review the resources provided by health care coordinator 2. I will I will contact my care team with questions, concerns, or support needs. 3. I will use the clinic as a resource, and I understand I can contact my clinic with 24/7 after hours services available. Life Sciences Teacher will remain available as needed. documented as of this encounter Visit Diagnoses Diagnosis Insulin controlled gestational diabetes mellitus (GDM) in third trimester- Primary documented in this encounter Additional Health Concerns Active Problems Noted Date Diagnosed Date Patient expresses financial resource strain 03/23 documented as of this encounter Care Teams Bowling Or Skating Front Desk Clerk Relationship Specialty Start Date End Date Lakesha Padron APRN CNM [address] [place] [address] PCP - General electronic repair troubleshooter 07/21/24 No Ref-Primary, Physician 02/28/24 Farrukh Gaspar MD [address], [facility] [address] [place] [address] Physician electronic repair troubleshooter 02/28/[address] [place] [address] Desk Pen Set Assembler Dietitian 03/06/24 Tara Martin LICSW Lead Life Sciences Teacher 04/11/24 Farrukh Gaspar MD [address] [address] Assigned OBGYN Provider 04/13/24 Padmini Calderon DO [address] [address] Physician electronic repair troubleshooter 04/22/24 Padmini Calderon DO [address] [address] Assigned OBGYN Provider 07/14/24 documented as of this encounter
--- OUTSIDE RECORDS SUMMARY | 2024-08-29 10:54 | XMS_ITS | Encounter Summary ---
Author Organization [place] Address [facility] [place] [address] Care Team Providers Care Network Relations Consultant Name Role Phone No Ref-Primary, Physician Unavailable Farrukh Gaspar MD Unavailable Kim Doll RD Unavailable Unavailab Tara Barbosa [facility] Unavailable Farrukh Gaspar MD Unavailable Padmini Calderon DO Unavailable Padmini Calderon DO Unavailable Lakesha Padron APRN [facility] Primary Care Provider Reason for Visit * Reason Comments Ultrasound BPP: DM2, CHTN Encounter Details Date Type Department Care Team (Late st Contact Info) Description 07/24/2024 3:30 PM CDT Office Visit [facility] [address] [place] [address] Dacia Alvarez MD [address] [place] [address] [address] [place] [address] with type 2 diabetes mellitus [...] in an abandoned building, in an overnight fpc, or couch-surfing.) Yes 07/22/2024 Are you worried [...] on file Legal Sex Female 5:03 AM ASSISTANT TEACHER PRIMARY Gender Identity Not on file Sexual Orientation Not on file documented as of this encounter Progress Notes * Dacia Alvarez MD - 07/24/2024 3:30 PM CDT The patient was seen [...] Nursing Notes * Mila Mata RN - 07/24/2024 3:30 PM CDT Patient presents to [facility] for BPP at 33w1d due to DM2, CHTN. Positive movement. Denies LOF, vaginal bleeding or cramping/contractions. Was in the hospital from Sunday to Sunday and states she isunhappy with the care and the follow up as the POC wasn't explained thoroughly. She was having backpain and chest pain. Some imaging was completed but per patient, they also denied some of the recommendations. Verbalizes being upset over the care. She was encouraged to call her airline hostess/OB to review and come up with a POC to make her more comfortable with care. SBAR given to [facility] MD, see their note in Epic. documented in this encounter Plan of Treatment Not on file documented as of this encounter Goals Goal Patient Goal Type Associated Problems Recent Progress Patient-Stated? Author Create an action plan to increase financial stability Care Plan Patient expresses financial resource strain Patt Young, [facility] Note: Barriers: Lack of housing Strengths: Engaged in care coordination Patient expressed understanding of goal: YES Action steps to achieve this goal: 1. I will review the resources provided by animal care technician 2. I will I will contact my care team with questions, concerns, or support needs. 3. I will use the clinic as a resource, and I understand I can contact my clinic with 24/7 after hours services available. Pellet Press Operator will remain available as needed. documented as of this encounter Visit Diagnoses Diagnosis with type 2 diabetes mellitus in third trimester- Primary documented in this encounter Additional Health Concerns Active Problems Noted Date Diagnosed Date Patient expresses financial resource strain 03/23 documented as of this encounter Care Teams Network Relations Consultant Relationship Specialty Start Date End Date Lakesha Padron APRN [facility] [address] [place] [address] PCP - General marine firer 07/21/24 No Ref-Primary, Physician 02/28/24 Farrukh Gaspar MD [address], [address] [address] Physician marine firer 02/28/[address] [facility] [place] [address] Tankerman Dietitian 03/06/24 Tara Maritn, [facility] Lead Pellet Press Operator 04/11/24 Farrukh Gaspar MD [address], [address] [address] Assigned OBGYN Provider 04/13/24 Padmini Calderon DO [address] [address] Physician marine firer 04/22/24 Padmini Calderon DO [address] [address] Assigned OBGYN Provider 07/14/24 documented as of this encounter
--- OUTSIDE RECORDS SUMMARY | 2024-08-29 10:54 | XMS_ITS | Encounter Summary ---
Author Organization [place] Address [address] [place] [address] Care Team Providers Care Pattern Cutter Name Role Phone No Ref-Primary, Physician Primary Care Provider No Ref-Primary, Physician Unavailable Farrukh Gaspar MD Unavailable Kim Doll RD Unavailable Unavailab Tara Barbosa Unavailable Farrukh Gaspar MD Unavailable Padmini Calderon DO Unavailable Padmini Calderon DO Unavailable Reason for Referral * Diagnostic Imaging Ultrasound (Routine) - Pending Review Specialty Diagnoses / Procedures Referred By Kalyani t Referred To Contact Radiology. Diagnoses Chronic hypertension in Procedures [facility] US Comprehensive Single F/U Kennedi Kerns MD [address] [facility] [address] [place] [address] Phone: tel: fax: Referral ID Status Reason Start Date Expiration Date V isits Requested Visits Authorized [id number] Pending Review 05/09/2024 05/09/2025 1 1 Reason for Visit * Diagnostic Imaging Ultrasound (Routine) - Pending Review Specialty Diagnoses / Procedures Referred By Kalyani t Referred To Contact Radiology. Diagnoses Chronic hypertension in Procedures [facility] US Comprehensive Single F/U Kennedi Kerns MD [address] [place] [address] [place] [address] Phone: tel: fax: Referral ID Status Reason Start Date Expiration Date V isits Requested Visits Authorized [id number] Pending Review 05/09/2024 05/09/2025 1 1 Encounter Details Date Type Department Care Team (Latest Contact Info) Description 07/17/2024 8:33 AM CDT - 07/17/2024 11:59 PM CDT Hospital Encounter [facility] [address] [address] Alyce Whitlock MD [address] [place] [address] [place] [address] Chronic hypertension in Discharge Disposition: Home or Self Care Social History Tobacco Use Types Packs/Day Years Used Date Smoking Tobacco: Never Smokeless Tobacco: Never Alcohol Use Standard Drinks/Week Comments Never 0 (1 standard drink = 0.6 oz pur e alcohol) PHQ-2 Answer Date Recorded PHQ-2 Score 1 06/13/2024 Adolescent Education Answer Date Record ed Getting School Help Needed Not on file 05/15 Comments Yes Sex and Gender Information Value Date Recorded Sex Assigned at Not on file 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 50 strip 6 02/29/2024 blood glucose (NO BRAND SPECIFIED) lancets standardIndication s:Gestational diabetes Test 4 times per day. 200 each 11 02/29/2024 blood glucose monitoring (NO BRAND SPECIFIED) meter device kitIndications:Ges tational diabetes Use to test blood sugar 4 times daily or as directed. 1 kit 1 02/29/2024 Glucose Blood (BLOOD GLUCOSE TEST STRIPS) STRPIndications:Ge stational diabetes 1 strip 4 times daily 150 strip 11 02/29/2024 insulin pen needle (32G X 4 MM) 32G X 4 MM miscellaneousIndic ations:Insulin controlled gestational diabetes mellitus (GDM) in second trimester Use 4 pen needles daily or as directed. 200 each 3 04/02/2024 Misc. Devices (BREAST PUMP) MISCIndications:Br eastfeeding problem in 1 each daily as needed 1 each 05/14/2024 albuterol (PROVENTIL HFA) 108 (90 BASE) MCG/ACT inhalerIndications :Cough Inhale 2 puffs into the lungs every 6 hours. 1 Inhaler 0 05/02/2013 4 aspirin 81 MG EC tablet Take 81 mg by mouth daily 4 famotidine (PEPCID) 20 MG tablet Take 20 mg by mouth 2 times daily 4 insulin aspart (NOVOLOG FLEXPEN) 100 UNIT/ML penIndications:Ins ulin controlled gestational diabetes mellitus (GDM) in second trimester Take 6 units with breakfast, may titrate up to 50 units daily 15 mL 3 04/02/2024 4 insulin detemir (LEVEMIR PEN) 100 UNIT/ML penIndications:Ins ulin controlled gestational diabetes mellitus (GDM) in second trimester Take at Bedtime as directed, Max of 60 units daily 30 mL 2 04/16/2024 4 labetalol (NORMODYNE) 100 MG tablet Take 300 mg by mouth 2 times daily. 07/17/2024 4 loratadine (CLARITIN) 10 MG tablet Take 10 mg by mouth daily. 07/02/2024 4 metFORMIN (GLUCOPHAGE) 500 MG tabletIndications: Insulin controlled gestational diabetes mellitus (GDM) in second trimester Take 1 tablet (500 mg) by mouth 2 times daily (with meals) 60 tablet 3 04/08/2024 4 omeprazole (PRILOSEC) [address] capsuleIndications :Heartburn during in second trimester Take 1 capsule (10 mg) by mouth daily 60 capsule 2 2024 4 Vljmksmq-Ngg-Vk-FA ( 1 + IRON OR) 4 Vit-Fe Fumarate-FA ( MULTIVITAMIN WITH IRON) 28-0.8 MG TABS 06/19/2024 4 documented as of this encounter Plan of Treatment Not on file documented as of this encounter Goals Goal Patient Goal Type Associated Problems Recent Progress Patient-Stated? Author Create an action plan to increase financial stability Care Plan Patient expresses financial resource strain No Patt Gautam, [facility] Note: Barriers: Lack of housing Strengths: Engaged in care coordination Patient expressed understanding of goal: YES Action steps to achieve this goal: 1. I will review the resources provided by direct care professional 2. I will I will contact my care team with questions, concerns, or support needs. 3. I will use the clinic as a resource, and I understand I can contact my clinic with 24/7 after hours services available. Chemistry Technical Officer will remain available as needed. documented as of this encounter Procedures Procedure Name Priority Date/Time Associated Diagnosis Comments [facility] US COMPREHENSIVE SINGLE F/U Routine 07/17/2024 9:03 AM CDT Chronic hypertension in documented in this encounter Results * [facility] US Comprehensive Single F/U (07/17/2024 9:03 AM CDT) Anatomical Region Laterality Modality Ultrasound 07/17/2024 8:33 AM CDT Impressions 07/17/2024 9:33 AM CDT IMPRESSION ----- 1. Mcmahan at 32w 1d gestational age. 2. None of the anomalies commonly detected by ultrasound were evident in the limited anatomic survey as described above. Bowel do not appear echogenic on today's ultrasound. 3. Growth parameters and estimated weight were appropriate for gestational age. 4. The amniotic fluid volume appeared normal. 5. BPP is reassuring. Narrative 07/17/2024 9:33 AM CDT ?Comp Follow Up ----- Pat. Name: ROLA MCKEON ? Study Date: ??07/17/2024 8:33am Pat. NO: ??[id number] ?Referring ??MD: ESTHER LAURENT Site: ? Net Sorter: Noelle Jain RDMS : ??1990 ?Age: ?? 34 ----- INDICATION ----- Advanced Maternal Age--Multigravida Chronic hypertension - no meds Probable Type 2 diabetes - on insulin History of PPROM at 36 weeks. Echogenic bowel seen on prior exam. METHOD ----- Transabdominal ultrasound examination. View: Sufficient. ----- Mcmahan . Number of fetuses: 1 DATING ----- ? Date ?Details ?Gest. age ?CARLOS LMP ?11/28/2023 ? 33 w + 1 d ? 09/03/2024 Previous U/S ?01/25/2024 ?GA, GA 7 w + 2 d ? 32 w + 1 d ? 09/10/2024 U/S ? 07/17/2024 ? based upon AC, BPD, Femur, HC ?33 w + 3 d ? 09/01/2024 Assigned dating ?based on ultrasound (GA), selected on 07/17/2024 ?32 w + 1 d ? 09/10/2024 GENERAL EVALUATION ----- Cardiac activity present. FHR 143 bpm. movements: present. Presentation: cephalic Placenta: No Previa, > 2 cm from internal os, Anterior Umbilical cord: 3 vessel cord Amniotic fluid: Amount of AF: normal amount. MVP 7.2 cm BIOMETRY ----- BPD ? 83.3 ?mm ? 33w 4d ?Hadlock OFD ? 108.3 ?mm ? 32w 3d ?Nicolaides HC ? 306.1 ?mm ? 34w 1d ? Hadlock Cerebellum tr ?42.4 ?mm ? 36w 3d ? Nicolaides AC ? 303.7 ?mm ? 34w 2d ?95% ?Hadlock Femur ?60.3 ?mm ? 31w 3d ? Hadlock Weight Calculation: EFW ?2,187 ?g ?78% ? Hadlock EFW (lb,oz) ?4 lb 13 ?oz EFW by ? Hadlock ([id number]) Head / Face / Neck Biometry: Facilities Coordinator ?5.4 ? mm CM ? 9.8 ? mm ANATOMY ----- The following structures appear normal: Head / Neck ? Cranium. Head size. Head shape. Lateral ventricles. Midline falx. Cavum septi pellucidi. Cerebellum. Cisterna magna. Thalami. Face ? Lips. Profile. Nose. Heart / Thorax ?4-chamber view. RVOT view. LVOT view. 9-swfmpm-koqgwxa view. ? Diaphragm. Abdomen ? Stomach. Bladder. The following structures were documented previously: Abdomen ? Kidneys. Spine ?Cervical spine. Thoracic spine. Lumbar spine. Sacral spine. sex: female. BIOPHYSICAL PROFILE ----- 2: breathing movements 2: Gross body movements 2: tone 2: Amniotic fluid volume 05/29 Biophysical profile score Interpretation: normal MATERNAL STRUCTURES ----- Cervix ?Not examined Right Ovary ?Not examined Left Ovary ?Not examined RECOMMENDATION ----- Thank-you for referring your patient for ultrasound assessment. I discussed the findings on today's ultrasound with the patient. Patient reports her blood glucose values are well controlled. She works closely with the diabetes team and makes adjustments as needed. She is continuing to monitor blood pressures closely in conjunction with her primary brine plant operator. Recommend ongoing twice weekly testing and monthly growth assessment. Return to primary provider for continued care. If you have questions regarding today's evaluation or if we can be of further service, please contact the [facility]. anomalies may be present but not detected I spent a total of 15 minutes on the date of this encounter including preparing to see the patient (reviewing medical records/tests), in direct ebsd-qh-mbea contact with the patient during her visit with the majority spent counseling and discussing the plan of care and documenting the visit in the electronic medical record. Please see note for details. Procedure Note Alyce Whitlock MD - 07/17/2024 Comp Follow Up ----- Pat. Name: ROLA MCKEON Study Date: 07/17/2024 8:33am Pat. NO: [id number] Referring MD: ESTHER LAURENT Site: Net Sorter: Noelle Jain RDMS : 1990 Age: 34 ----- INDICATION ----- Advanced Maternal Age--Multigravida Chronic hypertension - no meds Probable Type 2 diabetes - on insulin History of PPROM at 36 weeks. Echogenic bowel seen on prior exam. METHOD ----- Transabdominal ultrasound examination. View: Sufficient. ----- Mcmahan . Number of fetuses: 1 DATING ----- DateDetailsGest. age CARLOS LMP w + 1 d 09/03/2024 Previous U/S 01/25/2024 GA, GA7 w + 2 d32 w + 1 d 09/10/2024 U/S 07/17/2024ased upon AC, BPD, Femur, HC33 w + 3 d 09/01/2024 Assigned dating based on ultrasound (), selected 07/17/2024 32w + 1 d 09/10/2024 GENERAL EVALUATION ----- Cardiac activity present. FHR 143 bpm. movements: present.Presentation: cephalic Placenta: No Previa, > 2 cm from internal os, Anterior Umbilical cord: 3 vessel cord Amniotic fluid: Amount of AF: normal amount. MVP 7.2 cm BIOMETRY ----- BPD 83.3mm 33w 4dHadlock OFD 108.3mm 32w 3dNicolaides HC 306.1mm 34w 1dHadlock Cerebellum tr 42.4mm 36w 3dNicolaides AC 303.7mm 34w 2d 95%Hadlock Femur 60.3mm 31w 3dHadlock Weight Calculation: EFW 2,187g 78%Hadlock EFW (lb,oz) 4 lb 13oz EFW by Hadlock([id number]-[id number]) Head / Face / Neck Biometry: Facilities Coordinator 5.4mm CM 9.8mm ANATOMY ----- The following structures appear normal: Head / Neck Cranium. Head size. Head shape.Lateral ventricles. Midline falx. Cavum septi pellucidi. Cerebellum.Cisterna magna. Thalami. Face Lips. Profile. Nose. Heart / Thorax 4-chamber view. RVOT view. LVOT view.7-ecximz-prwlhcd view. Diaphragm. Abdomen Stomach. Bladder. The following structures were documented previously: Abdomen Kidneys. Spine Cervical spine. Thoracic spine.Lumbar spine. Sacral spine. sex: female. BIOPHYSICAL PROFILE ----- 2: breathing movements 2: Gross body movements 2: tone 2: Amniotic fluid volume 05/29 Biophysical profile score Interpretation: normal MATERNAL STRUCTURES ----- Cervix Not examined Right Ovary Not examined Left Ovary Not examined RECOMMENDATION ----- Thank-you for referring your patient for ultrasound assessment. Idiscussed the findings on today's ultrasound with the patient. Patient reports her blood glucose values are well controlled. She worksclosely with the diabetes team and makes adjustments as needed. She iscontinuing to monitor blood pressures closely in conjunction with her primary brine plant operator. Recommend ongoing twice weekly testing and monthly growthassessment. Return to primary provider for continued care. If you have questions regarding today's evaluation or if we can be offurther service, please contact the [facility]. anomalies may be present but not detected I spent a total of 15 minutes on the date of this encounter includingpreparing to see the patient (reviewing medical records/tests), in mtpekntupq-wn-sdow contact with the patient during her visit with the majority spent counseling and discussingthe plan of care and documenting the visit in the electronic medicalrecord. Please see note for details. IMPRESSION ----- 1. Mcmahan at 32w 1d gestational age. 2. None of the anomalies commonly detected by ultrasound were evident inthe limited anatomic survey as described above. Bowel do not appearechogenic on today's ultrasound. 3. Growth parameters and estimated weight were appropriate forgestational age. 4. The amniotic fluid volume appeared normal. 5. BPP is reassuring. us Kennedi Kerns MD [facility] US ORDERABLES Edit ed Result - Final documented in this encounter Visit Diagnoses Diagnosis Chronic hypertension in Benign essential hypertension complicating , childbirth, and the puerperium, unspecified as to episode of care documented in this encounter Additional Health Concerns Active Problems Noted Date Diagnosed Date Patient expresses financial resource strain 03/23 documented as of this encounter Care Teams Pattern Cutter Relationship Specialty Start Date End Date No Ref-Primary, Physician PCP - General 02/28/24 07/20/24 No Ref-Primary, Physician 02/28/24 Farrukh Gaspar MD [address], [address] [address] Physician red cross worker 02/28/[address] [facility] [place] [address] Technical Intern Dietitian 03/06/24 Tara Martin, [facility] Lead Chemistry Technical Officer 04/11/24 Farrukh Gaspar MD [address], [address] [address] Assigned OBGYN Provider 04/13/24 Padmini Calderon DO [address] [address] Physician red cross worker 04/22/24 Padmini Calderon DO [address] [address] Assigned OBGYN Provider 07/14/24 documented as of this encounter
--- OUTSIDE RECORDS SUMMARY | 2024-08-29 10:54 | XMS_ITS | Encounter Summary ---
Author Organization [place] Address [address] [place] [address]. [place] [address] Care Team Providers Care Simulation Educator Name Role Phone No Ref-Primary, Physician Primary Care Provider No Ref-Primary, Physician Unavailable [phone] Farrukh Gaspar MD Unavailable Kim Doll RD Unavailable Unavailab Tara Barbosa Unavailable Farrukh Gaspar MD Unavailable Padmini Calderon DO Unavailable Padmini Calderon DO Unavailable Encounter Details Date Type Department Care Team (Late st Contact Info) Description 07/19/2024 Telephone [facility] [address] [place] [address] Oliva Pinzon MD [facility] [address] [facility] [address] [place], [place] [address] Social History Tobacco Use Types Packs/Day Years [...] on file 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 Author Create an action plan to increase financial stability Care Plan Patient expresses financial resource strain No Patt Gautam [facility] Note: Barriers: Lack of housing Strengths: Engaged in care coordination Patient expressed understanding of goal: YES Action steps to achieve this goal: 1. I will review the resources provided by home care provider 2. I will I will contact my care team with questions, concerns, or support needs. 3. I will use the clinic as a resource, and I understand I can contact my clinic with 24/7 after hours services available. Cabin Crew will remain available as needed. documented as of this encounter Visit Diagnoses Diagnosis Acute cystitis without hematuria- Primary Acute cystitis documented in this encounter Additional Health Concerns Active Problems Noted Date Diagnosed Date Patient expresses financial resource strain 03/23 documented as of this encounter Care Teams Simulation Educator Relationship Specialty Start Date End Date No Ref-Primary, Physician PCP - General 02/28/24 07/20/24 No Ref-Primary, Physician 02/28/24 Farrukh Gaspar MD [address], [address] [address] Physician manager photography 02/28/[address] [facility] [place] [address] Stress Analyst Dietitian 03/06/24 Tara Martin LICSW Lead Cabin Crew 04/11/24 Farrukh Gaspar MD [address], [address] [address] Assigned OBGYN Provider 04/13/24 Padmini Calderon DO [address] [address] Physician manager photography 04/22/24 Padmini Calderon DO [address] [address] Assigned OBGYN Provider 07/14/24 documented as of this encounter
--- OUTSIDE RECORDS SUMMARY | 2024-08-29 10:54 | XMS_ITS | Encounter Summary ---
Author Organization [place] Address [address] [place] [address] Care Team Providers Care Manager Mass Name Role Phone No Ref-Primary, Physician Unavailable [phone] Farrukh Gaspar MD Unavailable [phone] Unavailable Unavailab Tara Barbosa Unavailable [phone] Farrukh Gaspar MD Unavailable Padmini Calderon DO Unavailable Padmini Calderon DO Unavailable Lakesha Padron APRN [facility] Primary Care Provider [phone] Encounter Details Date Type Department Care Team (Latest Contact Info) Description 07/21/2024 Travel Social History Tobacco Use Types Packs/Day [...] in an abandoned building, in an overnight [place] [facility], or couch-surfing.) Yes 07/22/2024 Are you worried [...] on file 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 Author Create an action plan to increase financial stability Care Plan Patient expresses financial resource strain No Patt Gautam, [facility] Note: Barriers: Lack of housing Strengths: Engaged in care coordination Patient expressed understanding of goal: YES Action steps to achieve this goal: 1. I will review the resources provided by direct care supervisor 2. I will I will contact my care team with questions, concerns, or support needs. 3. I will use the clinic as a resource, and I understand I can contact my clinic with 24/7 after hours services available. Residential Leasing Manager will remain available as needed. documented as of this encounter Visit Diagnoses Not on filedocumented in this encounter Additional Health Concerns Active Problems Noted Date Diagnosed Date Patient expresses financial resource strain 03/23 documented as of this encounter Care Teams Manager Mass Relationship Specialty Start Date End Date Lakesha Padron APRN [facility] [address] [place] [address] PCP - General panel maker 07/21/24 No Ref-Primary, Physician 02/28/24 Farrukh Gaspar MD [address], [address] [address] Physician panel maker 02/28/[address] [facility] [place] [address] Planting Material Remover Dietitian 03/06/24 Tara Martin, [facility] Lead Residential Leasing Manager 04/11/24 Farrukh Gaspar MD [address], [address] [address] Assigned OBGYN Provider 04/13/24 Padmini Calderon DO [address] [address] Physician panel maker 04/22/24 Padmini Calderon DO [address] [address] Assigned OBGYN Provider 07/14/24 documented as of this encounter
--- OUTSIDE RECORDS SUMMARY | 2024-08-29 10:54 | XMS_ITS | Encounter Summary ---
Author Organization [facility] Address [address] [place] [id number] Care Team Providers Care Window Draper Name Role Phone No Ref-Primary, Physician Unavailable [phone] Farrukh Gaspar MD Unavailable Kim Doll RD Unavailable Unavailab Tara Barbosa [facility] Unavailable Farrukh Gaspar MD Unavailable Padmini Calderon DO Unavailable Padmini Calderon DO Unavailable Lakesha Padron APRN [facility] Primary Care Provider [phone] Reason for Visit * Reason Comments Follow Up GDM 33w Encounter Details Date Type Department Care Team (Late st Contact Info) Description 07/23/2024 11:30 AM CDT Virtual Visit [facility] [address] [facility] [address] [place] [phone] Teagan Mark NP [address] [facility] [address] [place], [place] [id number] Insulin controlled gestational diabetes mellitus (GDM) in second trimester Social History Tobacco Use Types Packs/Day [...] in an overnight half-way, or couch-surfing.) Yes 07/22/2024 Are you worried [...] on file Legal Sex 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 Insulin controlled gestational diabetes mellitus (GDM) in second trimester HPI Rola Mckeon is a very [...] past: She has been seen by the Pre Parole Counseling Aide- and has received instruction on carbohydrate counting and consistency. Records from referring provider and other sources have also been reviewed and incorporated into decision-making. TODAY: Rola is seen today via Video Visit in follow-up for insulin dependent GDM. We are joined by MICHELLE Felton. Pt provides BG today and noted, many of her FBS are quite low, including and especially, the 69. Pt is telling us that she was Hospitalized on Sunday for what turned out to be Pyelonephritis. There were some concerns about Pre-eclampsia, so they did the lab work up. In addition, she hasa heart anomaly, and she states that she was put on Telemetry, but found out as she was leaving AMAthat it wasn't even on. She reports that she was without food for 24 hours and that they stillgave me a full dose of Levemir. This apparently was the night before she had the 69 as an FBS. Baby is moving appropriately and she is having no swelling at the present time. We will decrease her HSinsulin dose and see if we can pull up her FBS readings. She reports that they will do an IOL at 37weeks. GMD LOGS 07/17/24 Fast 74 breakfast 138 lunch 143 dinner 104 07/18/24 Fast 90 breakfast 130 lunch 129 dinner 140 07/19/24 Fast 91 breakfast 100 lunch 120 dinner 130 07/20/24 Fast 77 breakfast 99 lunch 130 dinner 139 07/21/24 Fast 76 breakfast 133 lunch 89 dinner 87 07/22/24 Fast 69 breakfast 128 lunch 130 dinner 134 07/23/24 Fast 81 breakfast 134 Past Medical History Patient Active Problem List [...] gestational diabetes mellitus (GDM) in second trimester Plan 1. GESTATIONAL DIABETES- Adjust dose [...] hour after each meal. Contact this clinic [phone] if blood glucose is not within the above- mentioned goals. We discussed the importance of excellent glycemic control during to limit complications such as macrosomia, shoulder dystocia, hypoglycemia and hyperbilirubinemia. I have discussed the patient's increased risk of recurrent GDM and/or development of type 2 diabetes later inlife. Follow-up in 2 weeks. Teagan Mark NP 07/23/2024 Lab Results No results found for: HGBA1C, CREATININE, MICROALBUR No results found for: CHOL, HDL, TRIG, CHOLHDL Current Medications Virtual Visit Details Type of service: Video Visit Video Start Time: 1130 Video End Time: 1150 Originating Location (pt. Location): Home Distant Location (provider location): On-site Platform used for Video Visit: [employer] documented in this encounter Plan of Treatment Not on file documented as of this encounter Goals Goal Patient Goal Type Associated Problems Recent Progress Patient-Stated? Author Create an action plan to increase financial stability Care Plan Patient expresses financial resource strain Patt Young, [facility] Note: Barriers: Lack of housing Strengths: Engaged in care coordination Patient expressed understanding of goal: YES Action steps to achieve this goal: 1. I will review the resources provided by wound care rn 2. I will I will contact my care team with questions, concerns, or support needs. 3. I will use the clinic as a resource, and I understand I can contact my clinic with 24/7 after hours services available. Rubber Stamp Assembler will remain available as needed. documented as of this encounter Visit Diagnoses Diagnosis Insulin controlled gestational diabetes mellitus (GDM) in second trimester documented in this encounter Additional Health Concerns Active Problems Noted Date Diagnosed Date Patient expresses financial resource strain 03/23 documented as of this encounter Care Teams Window Draper Relationship Specialty Start Date End Date Lakesha Padron APRN CNM [address] [place] [address] PCP - General chief business officer 07/21/24 No Ref-Primary, Physician 02/28/24 Farrukh Gaspar MD [address], [address] [address] Physician chief business officer 02/28/[address] [facility] [place] [place] [address] Pre Parole Counseling Aide Dietitian 03/06/24 [facility] Stamp Assembler 04/11/24 Farrukh Gaspar MD [address], [address] [address] Assigned OBGYN Provider 04/13/24 Padmini Calderon DO [address] [address] Physician chief business officer 04/22/24 Padmini Calderon DO [address] [address] Assigned OBGYN Provider 07/14/24 documented as of this encounter
--- OUTSIDE RECORDS SUMMARY | 2024-08-29 10:54 | XMS_ITS | Encounter Summary ---
Author Organization [facility] Address [address] [place] [address]. [place] [address] Care Team Providers Care Tents Assembler Name Role Phone No Ref-Primary, Physician Primary Care Provider No Ref-Primary, Physician Unavailable [phone] Farrukh Gaspar MD Unavailable [phone] Unavailable Unavailab mark VeronicaDomTara AUTO MOTOR MECHANIC Unavailable Farrukh Gaspar MD Unavailable Padmini Calderon DO Unavailable Padmini Calderon DO Unavailable Reason for Visit * Reason Comments Rule Out Labor Encounter Details Date Type Department Care Team (Late st Contact Info) Description 07/19/2024 5:54 PM CDT - 07/19/2024 9:45 PM CDT Hospital Encounter [facility] [address] [place] [phone] Isabelle Tariq MD [address], [facility] [address] [place] [address] Oliva Pinzon MD [facility] [address] [facility] [address] [place] [address] Discharge Disposition: Home or Self Care Social [...] on file 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 Gender Identity Not on file Sexual Orientation Not on file documented as of this encounter Last Filed Vital Signs Vital Sign Reading Time Taken Comments Blood Pressure 126/84 07/19/2024 9:00 PM CDT Pulse - - Temperature 37.1 ??C (98.7 ??F) 07/19/2024 6:37 PM CD T Respiratory Rate 20 07/19/2024 6:37 PM CDT Oxygen Saturation - - Inhaled Oxygen Concentration - - Weight - - Height - - Body Mass Index - - documented in this encounter Discharge Instructions * Discharge Instructions* Wanda Bo RN - 07/19/2024 9:29 PM CDT Learning About When to Call Your Doctor During (After 20 Weeks) Overview It's common to have concerns about what might be a problem when you're . Most pregnancies don't have any serious problems. But it's still important to know when to call your doctor if you have certain symptoms or signs of labor. These are general suggestions. Your doctor may give you some more information about when to call. When to call your doctor (after 20 weeks) Call 911 anytime you think you may need emergency care. For example, call if: You have severe vaginal bleeding. This means you are soaking through a pad each hour for 2 or more hours. You have sudden, severe pain in your belly. You have chest pain, are short of breath, or cough up blood. You passed out (lost consciousness). You have a seizure. You see or feel the umbilical cord. You think you are about to deliver your baby and can't make it safely to the hospital or birthing center. Call your doctor now or seek immediate medical care if: You have vaginal bleeding. You have belly pain. You have a fever. You are dizzy or lightheaded, or you feel like you may faint. You have signs of a blood clot in your leg (called a deep vein thrombosis), such as: Pain in the calf, back of the knee, thigh, or groin. Swelling in your leg or groin. A color change on the leg or groin. The skin may be reddish or purplish, depending on your usual skin color. You have symptoms of preeclampsia, such as: Sudden swelling of your face, hands, or feet. New vision problems (such as dimness, blurring, or seeing spots). A severe headache. You have a sudden release of fluid from your vagina. (You think your water broke.) You've been having regular contractions for an hour. This means that you've had at least 6 contractions within 1 hour, even after you change your position and drink fluids. You notice that your baby has stopped moving or is moving less than normal. You have signs of heart failure, such as: New or increased shortness of breath. New or worse swelling in your legs, ankles, or feet. Sudden weight gain, such as more than 2 to 3 pounds in a day or 5 pounds in a week. Feeling so tired or weak that you cannot do your usual activities. You have symptoms of a urinary tract infection. These may include: Pain or burning when you urinate. A frequent need to urinate without being able to pass much urine. Pain in the flank, which is just below the rib cage and above the waist on either side of the back. Blood in your urine. Watch closely for changes in your health, and be sure to contact your doctor if: You have vaginal discharge that smells bad. You feel sad, anxious, or hopeless for more than a few days. You have skin changes, such as a rash, itching, or a yellow color to your skin. You have other concerns about your . If you have labor signs at 37 weeks or more If you have signs of labor at 37 weeks or more, your doctor may tell you to call when your labor becomes more active. Symptoms of active labor include: Contractions that are regular. Contractions that are less than 5 minutes apart. Contractions that are hard to talk through. Follow-up care is a davidson part of your treatment and safety. Be sure to make and go to all appointments, and call your doctor if you are having problems. It's also a good idea to know your test resultsand keep a list of the medicines you take. Where can you learn more? Go to https://www.WePow.net/patiented Enter N531 in the search box to learn more about Learning About When to Call Your Doctor During (After 20 Weeks). Current as of: April 30, 2023 Content Version: 14.1 ?? [employer]. Care instructions adapted under license by your healthcare professional. If you have questions about a medical condition or this instruction, always ask your healthcare professional. [employer] disclaims any warranty or liability for your use of this information. documented in this encounter Medications at Time [...] every 6 hours. 1 Inhaler 0 05/02/2013 aspirin 81 MG EC tablet Take 81 mg by mouth daily 4 insulin aspart (NOVOLOG FLEXPEN) 100 [...] mouth daily 60 capsule 2 2024 4 Jkhxlgct-Drr-Rf-FA ( 1 + IRON OR) 4 Vit-Fe Fumarate-FA ( MULTIVITAMIN WITH IRON) 28-0.8 MG TABS 06/19/2024 4 documented as of this encounter Miscellaneous Notes * Plan of Care - Wanda Bo RN - 07/19/2024 9:45 PM CDT Data: Patient assessed in the [facility] for uterine contractions, leaking vaginal fluid. Cervical exam mid position, closed, and thick. Membranes intact per lab results. Contractions/uterine assessment every 3-8 minutes. Action: Presumed adequate oxygenation documented (see flow record). Discharge instructions reviewed. Patient instructed to report change in movement, vaginal leaking of fluid or bleeding,abdominal pain, or any concerns related to the to her nurse/physician. labor precautions reviewed. Given history of delivery and presence of uterine activity, encouraged to be proactive about intensifying symptoms. Response: Orders to discharge home per Oliva Pinzon. Patient verbalized understanding of educationand verbalized agreement with plan. Discharged to home at 2145. * Provider Notification - Wanda Bo RN - 07/19/2024 9:19 PM CDT 07/19/242118 Provider Notification Provider Name/Title Dr. Pinzon Method of Notification Electronic Page updated via [employer] Communications[employer] that SVE unchanged. Katty every 5-6 minutes, feeling them butokay about going home. FHR tracing shows moderate variability, accelerations, occasional variables that are not severe. Glucose 81. PTL precautions discussed. MFM appointment on Sunday, MFM appointment on with visit. MD okay with pt discharging to home. Will send outpatient script for Macrobid. * Provider Notification - Wanda Bo RN - 07/19/2024 8:20 PM CDT 07/19/242019 Provider Notification Provider Name/Title Dr. Pinzon Method of Notification Electronic Page updated via [employer] messenger with lab results and results of SVE- external os 1 cm but closed internally, thick. Uterine activity currently ever 4 minutes, IV bolus has been initiated. With speculum exam no pooling noted; fluid appeared to be clear, vaginal discharge. Still wincing with uterine activity but also appearing sleepy since fluids have been initiated. MD verbalized understanding. Plan for SVE recheck at completion of IV bolus. MD will place orders to start Macrobid. * Provider Notification - Wanda Bo RN - 07/19/2024 6:53 PM CDT 07/19/24 1853 Provider Notification Provider Name/Title Dr. Pinzon Method of Notification Phone MD paged for presentation to triage for PTL and potential PPROM. G+P, gestation, history and admitting concern discussed (see admitting note). Significant history of medical conditions and deliveries. Rola was a patient of [facility], then transferred to [facility] due to a bad experience. Reviewed available BPs. Uterine activity every 3-4 minutes on monitor; Rola will wince with them and states they wrap around to her back. Some are nonpalpable, and others palpate mild. FHR tracing shows moderate variability, accelerations, intermittent variables. Visual examination of vagina shows some moistness/clear discharge near labia but visible leaking fluid. Has left a urine sample, admits to being dehydrated today and urine appears orange in color. MD verbalized understanding. TORB for UA, ROM+, FERN, GBS, Wet Prep, and SVE. TORB for IV fluid bolus LR for one hour. Will update MD with lab results. * Plan of Care - Wanda Bo RN - 07/19/2024 6:30 PM CDT Data: Patient presented to [facility]: 07/19/2024 5:54 PM. Reason for maternal/ assessment is uterine contractions, leaking vaginal fluid. Patient reports noticing uterine contractions throughoutthe day that have intensified in pain. Rola is not really sure of a pattern; she was busy at daughter's birthday and wasn't paying attention to them. Feels them down low and they wrap around to herback. Noticing some thin, leaking fluid that she says comes out with movement. Patient is a . record reviewed. has been complicated by previous C/S delivery for breech presentation at 36w, hx delivery x2, aortic dilatation, T2DM with insulin, CHTN with labetalol BID, echogenic bowel, moderate polyhydramnios. Gestational Age 32w3d. VSS. movement active. Patient denies vaginal bleeding, nausea, vomiting, visual disturbances, epigastric or URQ pain, significant edema. Support person is present. Action: Verbal consent for EFM. Triage assessment completed. Bill of rights reviewed. Response: Patient verbalized agreement with plan. Will contact Dr Oliva Pinzon with update and forfurther orders. documented in this encounter Plan of Treatment [...] clinic with 24/7 after hours services available. Sand Screener will remain available as needed. documented as of this encounter Procedures Procedure Name Priority Date/Time Associated Diagnosis Comments GLUCOSE BY METER Routine 07/19/2024 8:53 PM CDT RUPTURE OF MEMBRANES BY ROM PLUS STAT 07/19/2024 7:26 PM CDT WET PREPARATION STAT 07/19/2024 7:25 PM CDT GROUP B STREP PCR STAT 07/19/2024 7:2 5 PM CDT ROUTINE UA WITH MICROSCOPIC REFLEX TO CULTURE STAT 07/19/2024 7:24 PM CDT FERN TEST FOR RUPTURE OF MEMBRANES STAT 07/19/2024 7:23 PM CDT documented in this encounter Results * Glucose by meter (07/19/2024 8:53 PM CDT) GLUCOSE BY METER POCT 81 70 - 99 mg/dL 07/19/2024 9:00 PM CDT LABORATORY POC Blood, Capillary BLOOD SPECIMEN / Unknown 07/19/2024 8:53 PM CDT 07/19/2024 9:00 PM CDT us Oliva Pinzon MD LAB - BEAKER POCT Final Result Performing Organization Address [facility]/ZIP Co de Phone Number LABORATORY [facility] [address] [facility]1st [facility], no room number) [place] [phone] * Rupture of Membranes by ROM Plus (07/19/2024 7:26 PM CDT) Rupture of Membranes by ROM Plus Negative Negative, Invalid, Suggest Repeat JANAK 07/19/2024 7:56 PM CDT LABORATORY Swab VAGINAL STRUCTURE / Unknown Non-blood Collection / Unknown 07/19/2024 7:26 PM CDT 07/19/2024 7:32 PM CDT Narrative [facility]ATORY - 07/19/2024 7:56 PM CDT It is recommended that the tests to detect rupture of the amniotic membranes should not be used without other clinical assessments to make clinical patient management decision. us Oliva Pinzon MD LAB - BODY FLUIDS ORDERABLES Fi nal Result Performing Organization Address [facility] Co de Phone Number LABORATORY [facility] [address] [facility] (1st floor, no room number) [place] [address] * (ABNORMAL) Group B strep PCR [...] LABORATORY - 07/20/2024 6:18 PM CDT The [employer] Xpert GBS LB Assay, performed on the [employer]?? Instrument Systems, is a qualitative in vitro [...] or monitor treatment for GBS infections. The [employer] Xpert GBS LB Assay is intended for use in hospital, reference or state laboratory settings. The device is not intended for nxavy-ca-gpqr use. Oliva Pinzon MD LAB - MICRO GENERAL ORDERABLES Final Result [facility] LABORATORY [facility] Inf. Diseases Diag. Lab [address] [facility] [place] [address], [facility] * (ABNORMAL) Wet prep (07/19/2024 7:25 PM CDT) Trichomonas Absent Absent JANAK 07/19/2024 7:40 PM CDT LABORATORY Yeast Absent Absent JANAK 07/19/2024 7:40 PM CDT LABORATORY Clue Cells Absent Absent JANAK 07/19/2024 7:40 PM CDT LABORATORY WBCs/high power field 1+(A) None JANAK 07/19/2024 7:40 PM CDT LABORATORY Swab VAGINAL STRUCTURE / Unknown Non-blood Collection / Unknown 07/19/2024 7:25 PM CDT 07/19/2024 7:32 PM CDT Oliva Pinzon MD LAB - MICRO GENERAL ORDERABLES Final Result LABORATORY [facility] [address] Lab (1st floor, no room number) [place] [address], [facility] * (ABNORMAL) UA with Microscopic reflex to Culture (07/19/2024 7:24 PM CDT) Color Urine Yellow Colorless, Straw, Light Yellow, Yellow 07/19/2024 7:52 PM CDT LABORATORY Appearance Urine Slightly Cloudy(A) Clear 07/19/2024 7:52 PM CDT LABORATORY Glucose Urine Negative Negative mg/dL 07/19/2024 7:52 PM CDT [facility] LAB[facility]ATORY Bilirubin Urine Negative Negative 7:52 PM CDT [facility] LAB[facility] Ketones Urine Negative Negative mg/dL 07/19/2024 7:52 PM CDT [facility] LABORATORY Specific [place] Urine 1.030 1.003 - 1.035 07/19/2024 7:52 PM CDT [facility]AT[facility] Blood Urine Negative Negative 07/19/2024 7:52 PM CDT [facility] pH Urine 6.0 5.0 - 7.0 07/19/2024 7:52 PM CDT [facility] Protein Albumin Urine 20(A) Negative mg/dL 07/19/2024 7:52 PM CDT [facility] Urobilinogen Urine 2.0 Normal, 2.0 mg/dL 07/19/2024 7:52 PM CDT [facility] Nitrite Urine Negative Negative 07/19/2024 7:52 PM CDT [facility] Leukocyte Esterase Urine Small(A) Negative 07/19/2024 7:52 PM CDT [facility] Bacteria Urine Few(A) None Seen /HPF 07/19/2024 7:52 PM CDT [facility] Mucus Urine Present(A) None Seen /LPF 07/19/2024 7:52 PM CDT [facility] Calcium Oxalate Crystals Urine Moderate(A) None Seen /HPF 07/19/2024 7:52 PM CDT [facility] RBC Urine 9(H) <=2 /HPF 07/19/2024 7:52 PM CDT [facility] WBC Urine 3 <=5 /HPF 07/19/2024 7:52 PM CDT [facility] Squamous Epithelials Urine 11(H) <=1 /HPF 07/19/2024 7:52 PM CDT [facility] Urine URINE SPECIMEN OBTAINED BY CLEAN CATCH PROCEDURE / Unknown Non-blood Collection / Unknown 07/19/2024 7:24 PM CDT 07/19/2024 7:32 PM CDT Narrative [facility] - 07/19/2024 7:52 PM CDT Urine Culture not indicated us Oliva Pinzon MD LAB - URINE ORDERABLES Final Re sult LABORATORY [facility] [address] [facility] Lab (1st floor, no room number) [place] [address] * Fern Test for Rupture of Membranes (07/19/2024 7:23 PM CDT) Fern Crystallization No ferning present No ferning present JANAK 07/19/2024 8:11 PM CDT LABORATORY Amniotic fluid VAGINAL STRUCTURE / Unknown Non-blood Collection / Unknown 07/19/2024 7:23 PM CDT 07/19/2024 7:32 PM CDT us Oliva Pinzon MD LAB - BODY FLUIDS ORDERABLES Fi nal Result LABORATORY [facility] [address] [facility] (1st floor, no room number) [place] [address] documented in this encounter Visit Diagnoses Diagnosis Encounter for triage in patient documented in this encounter Administered Medications Inactive Administered Medications - up to 3 most recent administrations Medication Order MAR Action Action Date Dose Rate Site lactated ringers BOLUS 1,000 mL Intravenous, 1,000 mL, ONCE, at 1,000 mL/hr, Administer over 1 Hours, On 07/19/24 at 1900, For 1 dose $New Bag 07/19/2024 8:00 PM CDT 1,000 mLs 1000 mL/hr lidocaine (LMX4) cream Topical, EVERY 1 HOUR PRN, pain, with VAD insertion, Starting on 07/19/24 at 1857, Apply at least 30 minutes prior to VAD insertion in divided doses as needed for size of site for insertion. MAX Dose: 2.5 g (?? of 5 g tube) Do NOT give if patient has a history of allergy to any local anesthetic or any frank product. Do NOT use both lidocaine intradermal/subcutaneous injection and the lidocaine cream on the same site., OB Preadmission lidocaine 1 % 0.1-1 mL 0.1-1 mL, Other, EVERY 1 HOUR PRN, mild pain with VAD insertion, Starting on 07/19/24 at 1857, MAX dose 1 mL subcutaneous OR intradermal along the side of the vein in divided doses as needed for VAD insertion. Do NOT give if patient has a history of allergy to any local anesthetic or any frank product. Do NOT use both lidocaine intradermal/subcutaneous injection and the lidocaine cream on the same site., OB Preadmission nitroFURantoin macrocrystal-monohydrate (MACROBID) capsule 100 mg Routine, 100 mg, Oral, EVERY 12 HOURS SCHEDULED, First dose on 07/19/24 at 2030, Indications: Urinary Tract InfectionIndications:Urinar y Tract Infection $Given 07/19/2024 9:12 PM CDT 100 mg sodium chloride (PF) 0.9% PF flush 3 mL 3 mL, Intracatheter, EVERY 8 HOURS, First dose on 07/19/24 at 1900, to lock peripheral IV dormant line, OB Preadmission sodium chloride (PF) 0.9% PF flush 3 mL 3 mL, Intracatheter, EVERY 1 MIN PRN, line flush, other, to ensure patency or to lock dormant line, Starting on 07/19/24 at 1857, OB Preadmission documented in this encounter Active and Recently Administered Medications Times are shown in CDT. Scheduled Medication Order 07/17/2024 07/18/2024 07/19/2024 lactated ringers BOLUS 1,000 mL (COMPLETED) Intravenous, 1,000 mL, ONCE, at 1,000 mL/hr, Administer over 1 Hours, On 07/19/24 at 1900, For 1 dose 1999 ($New Bag - Pro vider: Wanda Bo RN)2104 (Stopped - Provider: Wanda Bo RN) nitroFURantoin macrocrystal-monohydrate (MACROBID) capsule 100 mg Routine, 100 mg, Oral, EVERY 12 HOURS SCHEDULED, First dose on 07/19/24 at 2030, Indications: Urinary Tract Infection 2111 ($Given - Provi ector: Wanda Bo RN) sodium chloride (PF) 0.9% PF flush 3 mL 3 mL, Intracatheter, EVERY 8 HOURS, First dose on 07/19/24 at 1900, to lock peripheral IV dormant line, OB Preadmission 2040 (Not Given - Pr ovider: Wanda Bo RN - Reason: IV Infusing) PRN Medication Order 07/17/2024 07/18/2024 07/19/2024 lidocaine (LMX4) cream Topical, EVERY 1 HOUR PRN, pain, with VAD insertion, Starting on 07/19/24 at 1857, Apply at least 30 minutes prior to VAD insertion in divided doses as needed for size of site for insertion. MAX Dose: 2.5 g (?? of 5 g tube) Do NOT give if patient has a history of allergy to any local anesthetic or any frank product. Do NOT use both lidocaine intradermal/subcutaneous injection and the lidocaine cream on the same site., OB Preadmission lidocaine 1 % 0.1-1 mL 0.1-1 mL, Other, EVERY 1 HOUR PRN, mild pain with VAD insertion, Starting on 07/19/24 at 1857, MAX dose 1 mL subcutaneous OR intradermal along the side of the vein in divided doses as needed for VAD insertion. Do NOT give if patient has a history of allergy to any local anesthetic or any frank product. Do NOT use both lidocaine intradermal/subcutaneous injection and the lidocaine cream on the same site., OB Preadmission sodium chloride (PF) 0.9% PF flush 3 mL 3 mL, Intracatheter, EVERY 1 MIN PRN, line flush, other, to ensure patency or to lock dormant line, Starting on 07/19/24 at 1857, OB Preadmission documented in this encounter Additional Health Concerns Active Problems Noted Date Diagnosed Date Patient expresses financial resource strain 03/23 documented as of this encounter Care Teams Tents Assembler Relationship Specialty Start Date End Date No Ref-Primary, Physician PCP - General 02/28/24 07/20/24 No Ref-Primary, Physician 02/28/24 Farrukh Gaspar MD [address], [address] [address] Physician customer solutions teammate 02/28/[address] [facility] [place] [address] Church Official Dietitian 03/06/24 Tara Martin, [facility] Lead Sand Screener 04/11/24 Farrukh Gaspar MD [address] [address] Assigned OBGYN Provider 04/13/24 Padmini Calderon DO [address] [address] Physician customer solutions teammate 04/22/24 Padmini Calderon DO [address] [address] Assigned OBGYN Provider 07/14/24 documented as of this encounter
--- OUTSIDE RECORDS SUMMARY | 2024-08-29 10:54 | XMS_ITS | Encounter Summary ---
Author Organization [facility] Address [address] [place] [address]. [place] [address] Care Team Providers Care Tax Assistant Name Role Phone No Ref-Primary, Physician Primary Care Provider No Ref-Primary, Physician Unavailable [phone] Farrukh Gaspar MD Unavailable Kim Doll RD Unavailable Unavailab mark PritchettfransiscaTara Unavailable Farrukh Gaspar MD Unavailable Padmini Calderon DO Unavailable Padmini Calderon DO Unavailable Reason for Visit * Reason Comments Ultrasound RL2/BPP- CHTN, T2DM on insulin Encounter Details Date Type Department Care Team (Late st Contact Info) Description 07/17/2024 9:15 AM CDT Office Visit [facility] [address] [address] Alyce Whitlock MD [address] [place] [address] [address] [place] [address] Insulin controlled gestational diabetes mellitus [...] on file 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 Alyce Whitlock documented in this encounter Nursing Notes * Kim Quintana RN - 07/17/2024 9:15 AM CDT Patient reports positive movement, no pain, no contractions, leaking of fluid, or bleeding. Reports blood sugar values within range on insulin. Reports mild range blood pressures at home, giving them to OB today, 107-147/70-85. Patient denies headache, visual changes, nausea/vomiting, epigastric pain related to preeclampsia. Education provided to patient on when to call OB. SBAR given to ABDULAZIZ BHATT, see their note in Epic. documented in this encounter Plan of Treatment Not on file documented as of this encounter Goals Goal Patient Goal Type Associated Problems Recent Progress Patient-Stated? Author Create an action plan to increase financial stability Care Plan Patient expresses financial resource strain No Patt Gautam, [facility] Note: Barriers: Lack of housing Strengths: Engaged in care coordination Patient expressed understanding of goal: YES Action steps to achieve this goal: 1. I will review the resources provided by manager medicare marketing 2. I will I will contact my care team with questions, concerns, or support needs. 3. I will use the clinic as a resource, and I understand I can contact my clinic with 24/7 after hours services available. Cat Scanner Operator will remain available as needed. documented as of this encounter Visit Diagnoses Diagnosis Insulin controlled gestational diabetes mellitus (GDM) in third trimester- Primary Chronic hypertension in Benign essential hypertension complicating , childbirth, and the puerperium, unspecified as to episode of care documented in this encounter Additional Health Concerns Active Problems Noted Date Diagnosed Date Patient expresses financial resource strain 03/23 documented as of this encounter Care Teams Tax Assistant Relationship Specialty Start Date End Date No Ref-Primary, Physician PCP - General 02/28/24 07/20/24 No Ref-Primary, Physician 02/28/24 Farrukh Gaspar MD [address], [address] [address] Physician jde developer 02/28/[address] [place] [address] New Car Make Ready Mechanic Dietitian 03/06/24 Tara Martin, [facility] Lead Cat Scanner Operator 04/11/24 Farrukh Gaspar MD [address], [address] [address] Assigned OBGYN Provider 04/13/24 Padmini Calderon DO [address] [address] Physician jde developer 04/22/24 Padmini Calderon DO [address] [address] Assigned OBGYN Provider 07/14/24 documented as of this encounter
--- OUTSIDE RECORDS SUMMARY | 2024-08-29 10:54 | XMS_ITS | Encounter Summary ---
Author Organization [facility] Address [address] [place] [id number] Care Team Providers Care Hops Farmworker Name Role Phone No Ref-Primary, Physician Unavailable [phone] Farrukh Gaspar MD Unavailable Kim Doll RD Unavailable Unavailab Tara Barbosa Unavailable [phone] Farrukh Gaspar MD Unavailable Padmini Calderon DO Unavailable Padmini Calderon DO Unavailable [phone] Lakesha Padron APRN [facility] Primary Care Provider [phone] Encounter Details Date Type Department Care Team (Late st Contact Info) Description [place]/23[place]2024 [facility] [place] [facility] [address] [address] Jus Peter, [place] Social History Tobacco Use Types Packs/Day Years [...] on file 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 Author Create an action plan to increase financial stability Care Plan Patient expresses financial resource strain No Patt Gautam, [facility] Note: Barriers: Lack of housing Strengths: Engaged in care coordination Patient expressed understanding of goal: YES Action steps to achieve this goal: 1. I will review the resources provided by school child care attendant 2. I will I will contact my care team with questions, concerns, or support needs. 3. I will use the clinic as a resource, and I understand I can contact my clinic with / after hours services available. Cable Installation Manager will remain available as needed. documented as of this encounter Visit Diagnoses Not on filedocumented in this encounter Additional Health Concerns Active Problems Noted Date Diagnosed Date Patient expresses financial resource strain 03/23 documented as of this encounter Care Teams Hops Farmworker Relationship Specialty Start Date End Date Lakesha Padron APRN [facility] [address] [place] [address] PCP - General glue size machine operator 07/21/24 No Ref-Primary, Physician 02/28/24 Farrukh Gaspar MD [address], [address] [address] Physician glue size machine operator 02/28/[address] [place] [address] Heading Pinner Dietitian 03/06/24 Tara Martin, [facility] Lead Cable Installation Manager 04/11/24 Farrukh Gaspar MD [address], [address] [address] Assigned OBGYN Provider 04/13/24 Padmini Calderon DO [address] [address] Physician glue size machine operator 04/22/24 Padmini Calderon DO [address] [address] Assigned OBGYN Provider 07/14/24 documented as of this encounter
--- OUTSIDE RECORDS SUMMARY | 2024-08-29 10:54 | XMS_ITS | Encounter Summary ---
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 Role Phone No Ref-Primary, Physician Unavailable [phone] Farrukh Gaspar MD Unavailable Kim Doll RD Unavailable Unavailab Tara BarbosaSW Unavailable [phone] Farrukh Gaspar MD Unavailable Padmini Calderon DO Unavailable Padmini Calderon DO Unavailable Kati Laurent APRN [facility] Primary Care Provider [phone] Reason for Visit * Auth/Cert (Routine) Specialty Diagnoses / Procedures Referred By Kalyani montelongo Referred To Contact Med Surg Diagnoses Encounter for triage in patient RUQ pain [address] [address] Phone: tel: fax: Referral ID Status Reason Start Date Expiration Date Visits Re quested Visits Authorized [id number] 1 1 Encounter Details Date Type Department Care Team (Latest Contact Info) Description 07/21/2024 7:46 PM CDT - 07/22/2024 12:37 PM CDT Hospital Encounter [facility] [place] [phone] NereidaKati APRN CN [address] [place] [address] Discharge Disposition: Left Against Medical Advice Social History Tobacco Use Types Packs/Day Years [...] on file 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 Gender Identity Not on file Sexual Orientation Not on file documented as of this encounter Last Filed Vital Signs Vital Sign Reading Time Taken Comments Blood Pressure 117/71 07/22/2024 7:36 AM CDT Pulse 87 07/22/2024 7:36 AM CDT Temperature 36.5 ??C (97.7 ??F) 07/22/2024 7:36 AM CD T Respiratory Rate 19 07/22/2024 7:36 AM CDT Oxygen Saturation 97% 07/22/2024 7:36 AM CDT Inhaled Oxygen Concentration - - Weight 72.6 kg (160 lb) 07/21/2024 8:34 PM CDT Height 152.4 cm (5') 07/21/2024 8:02 PM CDT Body Mass Index 31.25 07/21/2024 8:02 PM CDT documented in this encounter Discharge Summaries * Tamiko Bolton MD - 07/22/2024 12:37 PM CDT Rola Mckeon 1990 Admitted 07/21/2024 Left AMA 07/22/2024 Medication List There are no discharge medications for this visit. Course of Care: Patient was admitted by Kati Laurent on 07/21/24. She was seen in the ER and her EKG was abnormal. The hospitalists were consulted at that time. Prior to discharge she had an echocardiogram. She leftAMA prior to results of imaging. A BPP was also ordered and she left prior to that being performed. She desires , however, her previous operative notes need to be obtained and reviewed and her cardiac status needs clearance. documented in this encounter Medications at Time [...] each daily as needed 1 each 05/14/2024 nitroFURantoin macrocrystal-mono hydrate (MACROBID) 100 MG capsuleIndication s:Acute cystitis without hematuria Take 1 capsule (100 mg) by mouth 2 times daily for 7 days. 14 capsule 07/19/2024 07/26/2024 acetaminophen (TYLENOL) 325 MG tablet Take 325-650 [...] by mouth 2 times daily. 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 * Tamiko Bolton MD - 07/22/2024 11:59 AM CDT S: Patient desires to leave AMA. She talked with her sister who thinks that her echo will be normaland stable from last time, her sister performs echocardiograms. Patient reports that she often has leg and back pain. O: vss bps 117/71 Gen: resting, comfortable A/P: at 32+6 weeks, admitted last night for several concerns, howeer, she would like to leave AMA. Chest pain: she has history of asthma. She declines chest imaging, would not move forward with CT scan. She had an echo today per patient, result not available at this time. Discussed with her history of cHTN, diabetes, and Eclampsia, there is more concern with cardiac function as these co-morbidities can effect her cardiac function. 2. Urinary Tract Infection (UTI): She was given IV ceftraixone. She is higher risk for pyelo with her health history. She will follow up in clinic. 3. Cardiac Murmur/Ascending Aortic Aneurysm She has mild ascending aortic aneurysm diagnosed on echocardiogram in April. Echo is pending at thistime, result not back at this time. 4. Hypokalemia this am- will supplement 5. well being- plan on bpp today before she leaves AMA 6. She will likely need to re-consult with cardiology as an outpatient. 7. AMA- patient is aware of the concerns, and she declines to continue with the hospitalization. * Venus Valladares CNM - 07/22/2024 11:00 AM CDT Courtesy Round- Stopped by pt room to let pt know that Dr Land would be seeing her later today and to ask if shehad any questions she wanted to pass on to her. RN stated that pt plans to leave AMA. FOB present in room and very upset about the care and the lack of communication. Attempted to ask pt questions, however he will not let pt answer. He continued to complain about the care and how the hospital can do nothing for her so they plan to leave. Was able to get pt to answer questions about baby; she reports active FM & denies s/s PTL. Otherwise FOB would respond. FOB 'approved' of her getting a BPPbefore they leave. Called Dr Land to notify her of the situation. She will get in touch with hospitalist and they will arrange plan from there. Order for BPP placed by lyric writer * Jess Fernandez RN - 07/22/2024 2:53 AM CDT Report given to KATHI Woodard over telephone. Patient transferred in wheelchair with spouse to room 130.Patient oriented to room and safety checks completed with an RN. * Jess Fernandez RN - 07/22/2024 1:00 AM CDT Hospitalist Noreen Lizama Stopped by to see patient at 0047. Discussed plan to move patient to another room in [facility], pending. Plan is for STAT US. Call hospitalist once US is resulted to review results. * Kati Laurent APRN CNM - 07/21/2024 9:33 PM CDT Patient Name: Rola Mckeon : 1990 Subjective: Labs have come back - negative for preeclampsia/HELLP. She continues to have RUQ pain and right sided CVA tenderness. Consulted with Dr. Gregorio who recommends the plan as noted. Objective: Vital signs: BP 124/83 Pulse 97 Temp 98.1 ??F (36.7 ??C) (Oral) Resp 16 Ht 1.524 m (5') Wt 72.6 kg (160 lb) LMP 11/28/2023 SpO2 96% BMI 31.25 kg/m?? FHR: Category 1, baseline 145, mod variability, accelerations jossie, decelerations no Uterine contractions: occ Physical Exam: A&Ox3 Abdomen: SIUP, abdomen non-tender Back: Pos CVA tenderness on right side SVE: deferred Legs: +1 edema, moves freely Assessment: Asessment: with RUQ pain, presumed pyelo, left sided chest pain GDMA2 gHTN Hx section Hx preeclampsia AMA Plan: - Will admit patient - Plan hospitalist consult - Complete abd US - Will treat for pyelo due to recent UTI and right sided CVA tenderness - NST TID Provider: Kati Laurent APRN CNM documented in this encounter H&P Notes * Kati Laurent APRN CNM - 07/21/2024 8:32 PM CDT Outpatient/Triage Note: Patient Name: Rola Mckeon : 1990 Subjective @ 32w5d here for evaluation of the following symptoms: Reported BP of 160/80 at home, unremitting headache x several days with visual changes. Visual changes include blurry vision and seeing spots. She also has left sided chest pain and URQ pain. Denies shortness of breath. Unable to check reflexes because she can not relax her muscles enough. She reports that her hands and feet are very swollen when compared to her norm. They are about +1 without pitting edema. She has a history of hypertension, hx of preeclampsia including IOL at 29 weeks with with first baby, C/S for breech at 36 weeks for second baby. GDMA2 vs preexisting type 2 diabetes. She is seeing [facility] for testing twice a week. Most recent BPP was today and was 8/8 with JOHN of 19.8 She was seen recently at [facility] for r/o PTL. They kirk preeclampsia labs: AST 6, ALT <5, creatinine 0.48, plts 201. She was also ruled out for SROM with negative ferns, wet prep was negative, UA was positive for UTI and she was started on macrobid, cervix was 1cm outer os and closed inner os. GBS swab was also collected and she is positive for GBS. Patient recently had a cardiac echo with [facility] on 05/14/24. Final impressions per report was: Normal left ventricular size. Normal wall thickness, normal global systolic function, calculated EFof 63% The ascending aorta is normal sized with a maximal diameter of 3.9cm Objective: Vital signs: BP 135/77 (Patient Position: Semi-Faustin's, Cuff Size: Adult Regular) Temp 98.1 ??F (36.7 ??C) (Oral) Resp 18 Ht 1.524 m (5') LMP 11/28/2023 SpO2 100% BMI 31.09 kg/m?? FHR: Category 1, baseline 145, mod variability, accelerations yes, decelerations no Uterine contractions: uterine irritability Physical Exam: A&Ox3 Abdomen: SIUP, abdomen non-tender SVE: deferred at this time. Legs: +1 edema, moves freely Plan: -will draw preeclampsia labs, type and screen, lipase -serial BPs Provider: Kati Laurent APRN CNM documented in this encounter Consult Notes * Noreen Bullard MD - 07/21/2024 9:49 PM CDT [facility] Consult Note - Hospitalist Service Date of Admission: 07/21/2024 Consult Requested by: kati Laurent Reason for Consult: chest pain Assessment & Plan Rola Mckeon is a 34 year old female 35-week female with a medical history of hypertension, diabetes mellitus (gestational, requiring insulin), asthma, and other comorbidities who is admitted with UTI. Medicine has been consulted for ongoing chest pain. Patient Active Problem List Diagnosis Asthma Gastroesophageal reflux Migraine Supervision of with other poor reproductive or obstetric history, second trimester Insulin controlled gestational diabetes mellitus (GDM) in third trimester Previous delivery, antepartum condition or complication History of delivery, currently Hx of preeclampsia, prior , currently Hypertension, essential, complicating Encounter for triage in patient Gestational hypertension, antepartum Murmur Rhinitis, allergic Vitamin D deficiency Pre-eclampsia 1. Chest Pain Likely Cause: Pleuritic in nature, possibly related to underlying cardiovascular or pulmonary issue. With mildy elevated dimer, ultrasound ordered for DVT, trend troponin. EKG was abnormal. Will consider consulting cards if it persists Management Plan: Bilateral lower extremity pain evaluated with an ultrasound to rule out DVT. Echocardiogram ordered to assess cardiac murmur. 2. Urinary Tract Infection (UTI) Likely Cause: Persistent infection. Management Plan: Continue ceftriaxone. Follow up on urine culture results. Also on Macrobid per Ob. 3. Hypertension Likely Cause: Chronic condition, currently well-controlled. Management Plan: Continue current antihypertensive regimen. 4. History of Eclampsia Likely Cause: Past history of eclampsia during . Management Plan: Monitor closely, Tylenol as needed for discomfort. 5. Migraines Likely Cause: Chronic migraines. Management Plan: Continue current migraine management strategies. Adjust medications as needed. 6. Asthma Likely Cause: Pre-existing asthma. Management Plan: Albuterol as needed for symptom relief. 7. Cardiac Murmur/Ascending Aortic Aneurysm Likely Cause: Mild ascending aortic aneurysm diagnosed on echocardiogram in April. Management Plan: Repeat transthoracic echocardiogram (TTE) in the morning for re-evaluation. 8. Gastroesophageal Reflux Disease (GERD) Likely Cause: ?Possible GERD symptoms contributing to chest discomfort. Management Plan: IV Pepcid initiated for symptom control. 9. Type 2 Diabetes Mellitus Likely Cause: Pre-existing condition. Management Plan: Accu-Chek monitoring, sliding scale insulin, Metformin as ordered by the primary team. 10, Anemia Likely Cause: Anemia of , expected physiological condition. Management Plan: Continue vitamins, monitor hemoglobin. No signs of active bleeding. 11. Gravid uterus/- Management per physician gynecologist Other Medical Conditions Likely Cause: Chronic, pre-existing conditions. Management Plan: Management of the rest of the patient's medical issues remains unchanged. Continuecurrent treatment plan. Clinically Significant Risk Factors Present on Admission # Hypocalcemia: Lowest Ca = 8.5 mg/dL in last 2 days, will monitor and replace as appropriate # Drug Induced Platelet Defect: home medication list includes an antiplatelet medication # Hypertension: Noted on problem list # Anemia: based on hgb <11 # Asthma: noted on problem list Noreen Bullard MD Hospitalist Service Securely message with [place]) Text page via [facility] Paging/Directory Chief Complaint @ 32w5d with chest pain History of Present Illness Rola Mckeon is a 34 year old female 35-week female with a medical history of hypertension, diabetes mellitus (gestational, requiring insulin), asthma, and other comorbidities who is admitted with UTI. Medicine has been consulted for ongoing chest pain Per history, patient is a 34-year-old female who is currently 35 weeks . Her medical history is notable for hypertension, diabetes mellitus (gestational, requiring insulin), asthma, and othercomorbidities. She was admitted for further management of a urinary tract infection (UTI) and is now being evaluated for ongoing chest pain, prompting a consult from medicine. She initially presented with a reported blood pressure of 160/80, but her blood pressure readings during her hospital stay have been within normal limits. Preeclampsia has been ruled out as her AST, ALT, and platelet levels are all normal. The patient is experienced severe right-sided pain, which was thought to be likely secondary to pyelonephritis, given her known UTI. She is receiving treatment for this condition. However, the reasonfor the consult is her new onset of left-sided chest pain, and there is a concern about her cardiacstatus. Patient complained of pleuritic chest pain when I saw her. . She also complained of bilateral lowerextremity pain worse in the left leg. The chest pain was not radiating to the left arm or jaw. The patient had an echocardiogram in April, performed at [facility] on 05/14/2024, which revealed an ejection fraction (EF) of 63%. While this is within normal limits, there is some uncertainty regarding the reason for the previous echo, as charting is limited. Preliminary labs showed a BMP which was unremarkable except for BUN of 4, creatinine 0.44, comminuted 20, hemoglobin 10.2. EKG done showed sinus rhythm with nonspecific ST-T changes in the anterior leads D-dimer was slightly elevated Troponin-WNL TTE 05/14 Final Impressions: 1. Normal left ventricular size, normal wall thickness, normal global systolic function, calculatedEF of 63 %. 2. The ascending aorta is normal sized with a maximal diameter of 3.9 cm. Chamber Sizes and Function Normal left ventricular size, normal wall thickness, normal global systolic function, calculated EFof 63 %. Left atrial size is normal. Left atrial pressure is normal. Right ventricular cavity size is normal, global systolic RV function is normal. The right atrium is normal. Right atrial area is 13 cm?. The pulmonary artery is of normal size and origin. The sinus of Valsalva is normal sized. The ascending aorta is normal sized. Valves, RV Pressures and Diastolic Function The aortic valve is normal in structure and trileaflet, no stenosis and mild regurgitation. The mitral valve is normal in structure, trace mitral regurgitation. Normal diastolic function. The tricuspid valve is normal in structure. Tricuspid regurgitation is trace regurgitation. The pulmonic valve is normal. Trace pulmonary regurgitation. Masses, Effusion, Shunts There is no pericardial effusion. The inferior vena cava is normal sized, respiratory size variation greater than 50%. No left to right shunting was detected by limited color flow Doppler interrogation of the interatrial septum. Code patient is a full code Past Medical History Past Medical History: Diagnosis Date Abnormal Pap smear of cervix Asthma Enlarged aorta (H) Gestational diabetes Hypertension Uncomplicated asthma Varicella Medical History Medical History Medical History Date Comments Routine general medical examination at a health care facility Amblyopia right eye Contact dermatitis and other eczema, due to unspecified cause Vitamin D deficiency 28.3 ASCUS with positive high risk HPV 06/2012 Gestational diabetes Unspecified asthma(493.90) Active Problems Active Problems Problem Noted Date Diagnosed Date Pre-eclampsia 11/29/2022 Gestational hypertension, antepartum 11/29/2022 Murmur 11/29/2022 Toxemia 12/05/2012 Gestational diabetes 09/21/2012 Overview: Diet-controlled Vitamin D deficiency 06/22/2012 Overview: 28.3 Past Surgical History Past Surgical History: Procedure Laterality Date SECTION 07/19/2022 Surgical History Surgical History Surgery Date Site/Laterality Comments WISDOM TEETH EXTRACTION 10/22/2008 SECTION 07/19/2022 Medications Medications Prior to Admission Medication Sig Dispense Refill Last Dose acetaminophen (TYLENOL) 325 MG tablet Take 325-650 mg by mouth every 6 hours as needed for mild pain. 07/21/2024 acetone urine (KETOSTIX) test strip 1 strip daily Use one strip daily for 1 week then weekly if negative. 50 strip 6 07/21/2024 albuterol (PROVENTIL HFA) 108 (90 BASE) MCG/ACT inhaler Inhale 2 puffs into the lungs every 6 hours. 1 Inhaler 0 07/21/2024 aspirin 81 MG EC tablet Take 81 mg by mouth daily 07/20/2024 blood glucose (NO BRAND SPECIFIED) lancets standard Test 4 times per day. 200 each 11 07/21/2024 blood glucose monitoring (NO BRAND SPECIFIED) meter device kit Use to test blood sugar 4 times daily or as directed. 1 kit 1 07/21/2024 Glucose Blood (BLOOD GLUCOSE TEST STRIPS) STRP 1 strip 4 times daily 150 strip 11 07/21/2024 insulin aspart (NOVOLOG FLEXPEN) 100 UNIT/ML pen Take 6 units with breakfast, may titrate up to 50 units daily (Patient taking differently: Take 6 units with breakfast, may titrate up to 50 units daily 4 units before dinner) 15 mL 3 07/21/2024 insulin detemir (LEVEMIR PEN) 100 UNIT/ML pen Take at Bedtime as directed, Max of 60 units daily (Patient taking differently: Take at Bedtime as directed, Max of 50 units daily) 30 mL 2 07/20/2024 insulin pen needle (32G X 4 MM) 32G X 4 MM miscellaneous Use 4 pen needles daily or as directed. 200 each 3 07/21/2024 labetalol (NORMODYNE) 100 MG tablet 07/21/2024 loratadine (CLARITIN) 10 MG tablet Take 10 mg by mouth. 07/20/2024 metFORMIN (GLUCOPHAGE) 500 MG tablet Take 1 tablet (500 mg) by mouth 2 times daily (with meals) 60 tablet 3 07/21/2024 Misc. Devices (BREAST PUMP) MISC 1 each daily as needed 1 each 0 07/21/2024 nitroFURantoin macrocrystal-monohydrate (MACROBID) 100 MG capsule Take 1 capsule (100 mg) by mouth 2 times daily for 7 days. 14 capsule 0 07/21/2024 omeprazole (PRILOSEC) [address] capsule Take 1 capsule (10 mg) by mouth daily 60 capsule 2 07/20/2024 Jgplzmox-Vau-Wc-FA ( 1 + IRON OR) Past Week Vit-Fe Fumarate-FA ( MULTIVITAMIN WITH IRON) 28-0.8 MG TABS Past Week Review of Systems The 10 point Review of Systems is negative other than noted in the HPI or here. Social History I have reviewed this patient's social history and updated it with pertinent information if needed. Social History Tobacco Use Smoking status: Never Smokeless tobacco: Never Substance Use Topics Alcohol use: Never Drug use: Never Family History I have reviewed this patient's family history and updated it with pertinent information if needed. Family History Problem Relation Age of Onset Hypertension Mother Thyroid Disease Mother Hypertension Father Heart block Father Pancreatic Cancer Maternal Grandmother Family History Family History Medical History Relation Name Comments Allergies Brother 2 Alcohol/Drug Father Alcoholism Father Allergies Father Hypertension Father Premature CHD (under age 60) Father [place] Allergies Mother Hypertension Mother Allergies Sister 4 Family History Relation Name Status Comments Brother 1 Alive Brother 2 Father Alive Maternal Grandmother Mother Alive Paternal Grandfather Paternal Grandmother Sister 1 Alive Sister 2 Alive Sister 3 Alive Sister 4 Son Alive Allergies Allergies Allergen Reactions Grass Pollen(K-O-R-T-Swt Eyal) Itching and Difficulty breathing [place] pollens Physical Exam Vital Signs: Temp: 98.1 ??F (36.7 ??C) Temp src: Oral BP: 124/83 Pulse: 97 Resp: 16 SpO2: 97 % O2 Device: None (Room air) Weight: 160 lbs 0 oz General Aox3, appropriate affect, NAD, on RA HEENT MMM, EOMI, PERRL Chest Adeq E b/l, No wheezing Heart RRR, ? M/R/G Abd- Soft, NT, BS+ - Deferred, gravid uterus Extremity- Moving all extremities, No digital clubbing, No edema Neuro- Aox3, moving all extremities, gait not checked Skin Has no tattoo, No skin rash Medical Decision Making 85 MINUTES SPENT BY ME on the date of service doing chart review, history, exam, documentation & further activities per the note. MEDICAL DECISION MAKING MANAGEMENT DISCUSSED with the following over the past 24 hours: patient and care team Data PAST 24 HR DATA REVIEWED I have personally reviewed the following data over the past 24 hrs: 9.6 \ 10.2 (L) / 206 137 106 4.1 (L) / 87 3.5 20 (L) 0.44 (L) \ ALT: 14 AST: 20 AP: 88 TBILI: 0.6 ALB: 3.6 TOT PROTEIN: 6.6 LIPASE: 22 Imaging results reviewed over the past 24 hrs: Recent Results (from the past 24 hour(s)) [facility] BPP Single Narrative BPP Pat. Name: ROLA MCKEON Study Date: 07/21/2024 3:35pm Pat. NO: [id number] Referring MD: KATI LAURENT Site: [facility] Auditor: Noelle Jain RDMS : 1990 Age: 34 INDICATION Type 2 Diabetes METHOD Transabdominal ultrasound examination. View: Sufficient Mcmahan . Number of fetuses: 1 DATING Date Details Gest. age CARLOS LMP 11/28/2023 33 w + 5 d 09/03/2024 Previous U/S 01/25/2024 GA, GA 7 w + 2 d 32 w + 5 d 09/10/2024 Assigned dating based on ultrasound (GA), selected on 07/21/2024 32 w + 5 d 09/10/2024 GENERAL EVALUATION Cardiac activity present. FHR 155 bpm. movements: visualized. Presentation: cephalic Placenta: No Previa, > 2 cm from internal os, Anterior Umbilical cord: previously studied AMNIOTIC FLUID ASSESSMENT Amount of AF: normal MVP 8.9 cm. JOHN 19.8 cm. Q1 8.6 cm, Q2 8.6 cm, Q3 0.8 cm, Q4 1.7 cm BIOPHYSICAL PROFILE 2: breathing movements 2: Gross body movements 2: tone 2: Amniotic fluid volume 05/29 Biophysical profile score Interpretation: normal RECOMMENDATION Thank-you for referring your patient for surveillance. We discussed the results of the ultrasound with the patient. Continue twice weekly surveillance and serial growth US every 4 weeks due to pregestational diabetes. Return to primary provider for continued care. If you have questions regarding today's evaluation or if we can be of further service, please contact the [facility]. anomalies may be present but not detected Impression IMPRESSION 1. Mcmahan at 32w 5d gestational age. 2. The amniotic fluid volume appeared normal. 3. The BPP was reassuring. documented in this encounter Miscellaneous Notes * Significant Event - Heydi Mckeon RN - 07/22/2024 12:33 PM CDT Patient expressed wish to leave AMA. MD's notified. Dr. Land had conversation with patient goingover risks of leaving AMA and benefits of staying. Patient verbalized understanding of risks of leaving. Patient had originally agreed to stay until after BPP, but as US was unable to get her in sooner, patient elected to leave AMA with at 1226. * Plan of Care - Real Little RN - 07/22/2024 6:21 AM CDT Problem: Adult Inpatient Plan of Care Goal: Optimal Comfort and Wellbeing Outcome: Progressing Problem: Fall Injury Risk Goal: Absence of Fall and Fall-Related Injury Outcome: Progressing Intervention: Identify and Manage Contributors Recent Flowsheet Documentation Taken 07/22/2024422 by Real Little RN Medication Review/Management: medications reviewed Intervention: Promote Injury-Free Environment Recent Flowsheet Documentation Taken 07/22/2024422 by Real Little RN Safety Promotion/Fall Prevention: activity supervised assistive device/personal items within reach clutter free environment maintained nonskid shoes/slippers when out of bed patient and family education room organization consistent safety round/check completed Problem: Pain Acute Goal: Optimal Pain Control and Function Outcome: Progressing Intervention: Prevent or Manage Pain Recent Flowsheet Documentation Taken 07/22/2024422 by Real Little RN Medication Review/Management: medications reviewed Goal Outcome Evaluation: VSS. Has pain in lower extremities, refused tylenol saying it doesn't do anything for pain. Ultrasound showed negative for DVTs. Pt on mag protocols with replacement during shift. Pt NPO. SBA for LE pain. Family at bedside. Pt is scheduled to have ECHO in the am. * Plan of Care - Jess Fernandez RN - 07/22/2024 12:43 AM CDT Problem: Adult Inpatient Plan of Care Goal: Optimal Comfort and Wellbeing Outcome: Progressing Goal Outcome Evaluation: Plan of Care Reviewed With: patient, spouse Overall Patient Progress: no changeOverall Patient Progress: no change Outcome Evaluation: Patient able to make needs known. VSS. Patient currently NPO. Kati Laurent CNM states plan is for patient transfer to a medical surgicalroom. Echo to be done in AM. States headaches, vision changes, pain in lower extremities/numbness no changes. NST to be one TID. * Pharmacy-Admission Medication History - Maricruz Solano RP - 07/21/2024 10:30 PM CDT Pharmacist Admission Medication History Admission medication history is complete. The information provided in this note is only as accurateas the sources available at the time of the update. Information Source(s): Patient and Family member via in-person Pertinent Information: Changes made to SPEECH SCIENTIST medication list: Added: None Deleted: albuterol, loratidine, vitamin Changed: Novolog, Levemir, labetalol Allergies reviewed with patient and updates made in EHR: yes Medication History Completed By: Maricruz Solano RPH 07/21/2024 10:30 PM SPEECH SCIENTIST Med List Medication Sig Last Dose acetaminophen (TYLENOL) 325 MG tablet Take 325-650 mg by mouth every 6 hours as needed for mild pain. 07/21/2024 at prn acetone urine (KETOSTIX) test strip 1 strip daily Use one strip daily for 1 week then weekly if negative. 07/21/2024 aspirin 81 MG EC tablet Take 81 mg by mouth daily 07/21/2024 at am blood glucose (NO BRAND SPECIFIED) lancets standard Test 4 times per day. 07/21/2024 blood glucose monitoring (NO BRAND SPECIFIED) meter device kit Use to test blood sugar 4 times daily or as directed. 07/21/2024 Glucose Blood (BLOOD GLUCOSE TEST STRIPS) STRP 1 strip 4 times daily 07/21/2024 insulin aspart (NOVOLOG FLEXPEN) 100 UNIT/ML pen Take 6 units with breakfast, may titrate up to 50 units daily (Patient taking differently: Take 6 units with breakfast, may titrate up to 50 units daily Take 4 units with lunch and dinner.) at lunch insulin detemir (LEVEMIR PEN) 100 UNIT/ML pen Take at Bedtime as directed, Max of 60 units daily (Patient taking differently: Inject 54 Units subcutaneously at bedtime.) 07/20/2024 at pm insulin pen needle (32G X 4 MM) 32G X 4 MM miscellaneous Use 4 pen needles daily or as directed. 07/21/2024 labetalol (NORMODYNE) 100 MG tablet Take 100 mg by mouth 2 times daily. 07/21/2024 at am metFORMIN (GLUCOPHAGE) 500 MG tablet Take 1 tablet (500 mg) by mouth 2 times daily (with meals) 07/21/2024 at am Misc. Devices (BREAST PUMP) MIS 1 each daily as needed 07/21/2024 nitroFURantoin macrocrystal-monohydrate (MACROBID) 100 MG capsule Take 1 capsule (100 mg) by mouth 2 times daily for 7 days. 07/21/2024 at am omeprazole (PRILOSEC) [address] capsule Take 1 capsule (10 mg) by mouth daily 07/21/2024 at am * Plan of Care - Edwina Hua RN - 07/21/2024 8:19 PM CDT Data: Patient presented to [facility]: 07/21/2024 7:46 PM. Reason for maternal/ assessment is blood pressure evaluation, headache, 'sore legs', epigastric pain and blurry vision. Patient reports she's had a headache for 5 days. She's taken tylenol with no relief. Patient denies LOF or vaginal bl eeding. Patient reports movement is normal. Patient is a 32w5d . record reviewed. has been complicated by diabetes, hypertension, and advanced maternal age. Vital signs wnl. Support person is present. Action: Verbal consent for EFM. Triage assessment completed. Response: Patient verbalized agreement with plan. HELLP labs ordered. Claudy Laurent CNM at bedside toevaluate. documented in this encounter Plan of Treatment Scheduled Orders Name Type Priority Associated Diagnoses Orde r Schedule Maternal US Comprehensive Single Imaging Routine One time im aging for 1 Occurrences starting 07/22/2024 until 07/22/2024 Maternal US Comprehensive Single Imaging STAT One time im aging for 1 Occurrences starting 07/22/2024 until 07/22/2024 documented as of this encounter Goals Goal Patient Goal Type Associated Problems Recent Progress Patient-Stated? Author Create an action plan to increase financial stability Care Plan Patient expresses financial resource strain No Patt Gautam, [facility] Note: Barriers: Lack of housing Strengths: Engaged in care coordination Patient expressed understanding of goal: YES Action steps to achieve this goal: 1. I will review the resources provided by care program resident 2. I will I will contact my care team with questions, concerns, or support needs. 3. I will use the clinic as a resource, and I understand I can contact my clinic with 24/7 after hours services available. Bar Machine Operator will remain available as needed. documented as of this encounter Procedures Procedure Name Priority Date/Time Associated Diagnosis Comments GLUCOSE BY METER Routine 07/22/2024 9:36 AM CDT ECHO COMPLETE Routine 07/22/2024 9:30 AM CDT GLUCOSE BY METER Routine 07/22/2024 8:50 AM CDT GLUCOSE BY METER Routine 07/22/2024 8:27 AM CDT CBC WITH PLATELETS AND DIFFERENTIAL Routine 07/22/2024 7:28 AM CDT CBC WITH PLATELETS & DIFFERENTIAL Routine 07/22/2024 7:28 AM CDT COMPREHENSIVE [...] ? [facility] Routine 07/21/2024 10:12 PM CDT TYPE AND SCREEN, ADULT STAT 8:13 PM CDT EXTRA RED TOP TUBE (LAB USE ONLY) Routine 07/21/2024 8:13 PM CDT LIPASE STAT 07/21/2024 8:13 PM CDT HEMOGLOBIN A1C Add-On 07/21/2024 8:13 PM CDT COMPREHENSIVE METABOLIC PANEL STAT 07/21/2024 8:13 PM CDT ABO/RH TYPE AND SCREEN STAT 8:13 PM CDT CBC WITH PLATELETS STAT 07/21/2024 8: 13 PM CDT PROTEIN RANDOM URINE STAT 07/21/2024 7:58 PM CDT documented in this encounter Results * (ABNORMAL) Glucose by meter (07/22/2024 9:36 AM CDT) [facility] GLUCOSE BY METER POCT 123(H) 70 - 99 mg/dL 07/22/2024 9:44 AM CDT [facility] POCT RESULTS Blood, Capillary BLOOD SPECIMEN / Unknown 07/22/2024 9:36 AM CDT 07/22/2024 9:44 AM CDT us Kati Laurent REAL ESTATE LAWYER CNM LAB - GRISEL POCT Final R esult [facility] POCT RESULTS [address] [place] [address] * ECHO COMPLETE (07/22/2024 9:30 AM CDT) LVEF 60-65% CARDIOLOGY RESULTS Anatomical Region Laterality Modality Ultrasound 07/22/2024 9:10 AM CDT Narrative 07/22/2024 11:02 AM CDT [id number]^CHARY^NOREEN^Brenda [facility] [address] [place] [address] Name: ROLA MCKEON : 1990 Study Date: 07/22/2024 09:10 AM Age: 34 yrs Gender: Female Patient Location: [facility] Reason For Study: Chest Pain Ordering Physician: [...] Procedure Note Haider Ellis MD - 07/22/2024 [id number]^CHARY^NOREEN^[place] [address] Name: ROLA MCKEON : 1990 Study Date: 07/22/2024 09:10 AM Age: 34 yrs Gender: Female Patient Location: [facility] Reason For Study: Chest Pain Ordering Physician: [...] ORDERABLES Edited Resul t - Final * Glucose by meter (07/22/2024 8:50 AM CDT) GLUCOSE BY METER POCT 74 70 - 99 mg/dL 07/22/2024 8:58 AM CDT [facility] POCT RESULTS Blood, Capillary BLOOD SPECIMEN / Unknown 07/22/2024 8:50 AM CDT 07/22/2024 8:58 AM CDT Kati Laurent APRN [facility] - [facility] POCT Final R esult Performing Organization Address City/[facility]/ZIP Co de Phone Number [facility] POCT RESULTS [address] [place] [address] * (ABNORMAL) Glucose by meter (07/22/2024 8:27 AM CDT) GLUCOSE BY METER POCT 63(L) 70 - 99 mg/dL 07/22/2024 8:52 AM CDT [facility] POCT RESULTS Blood, Capillary BLOOD SPECIMEN / Unknown 07/22/2024 8:27 AM CDT 07/22/2024 8:52 AM CDT Kati Laurent APRN [facility] POCT Final R esult Performing Organization Address City/[facility] Co de Phone Number [facility] POCT RESULTS [address] [place] [address] * (ABNORMAL) CBC with platelets and differential [...] - 1.3 10e3/uL 07/22/2024 8:17 AM CDT [facility] Absolute Eosinophils 0.1 0.0 - 0.7 10e3/uL 07/22/2024 8:17 AM CDT [facility] Absolute Basophils 0.1 0.0 - 0.2 10e3/uL 07/22/2024 8:17 AM CDT [facility] Absolute Immature Granulocytes 0.1 <=0.4 10e3/uL 07/22/2024 8:17 AM CDT [facility] Absolute NRBCs 0.0 10e3/uL 07/22/2024 8:17 AM CDT [facility] Blood STRUCTURE OF LEFT HAND / Unknown Venipuncture / Unknown 07/22/2024 7:28 AM CDT 07/22/2024 7:51 AM CDT us Kati Laurent REAL ESTATE LAWYER CNM LAB - BLOOD ORDERABLES Fi nal Result N LABORATORY [facility] [address] [place] [address], [facility] * (ABNORMAL) Comprehensive metabolic panel (07/22/2024 7:28 AM CDT) Sodium 139 135 - 145 mmol/L 07/22/2024 8:18 AM CDT [facility] Potassium 3.1(L) 3.4 - 5.3 mmol/L 07/22/2024 8:18 AM CDT [facility] Carbon Dioxide (CO2) 23 22 - 29 mmol/L 07/22/2024 8:18 AM CDT [facility] Anion Gap 8 7 - 15 mmol/L 07/22/2024 8:18 AM CDT [facility] Urea Nitrogen 2.9(L) 6.0 - 20.0 mg/dL 07/22/2024 8:18 AM CDT [facility] Creatinine 0.45(L) 0.51 - 0.95 mg/dL 07/22/2024 8:18 AM CDT [facility] GFR Estimate >90 >60 mL/min/1.7 3m2 07/22/2024 8:18 AM CDT [facility] Comment:eGFR calculated usin 2020 CKD-EPI equation. Calcium 8.1(L) 8.8 - 10.4 mg/dL 07/22/2024 8:18 AM [facility] Comment:Reference intervals for this test were updated on 05/06/2024 to reflect our healthy population more accurately. There may be differences in the flagging of prior results with similar values performed with this method. Those prior results can be interpreted in the context of the updated reference intervals. Chloride 108(H) 98 - 107 mmol/L 07/22/2024 8:18 AM CDT [facility] Glucose 63(L) 70 - 99 mg/dL 07/22/2024 8:18 AM CDT [facility] Alkaline Phosphatase 82 40 - 150 U/L 07/22/2024 8:18 AM CDT [facility] AST 15 0 - 45 U/L 07/22/2024 8:18 AM CDT [facility] ALT 13 0 - 50 U/L 07/22/2024 8:18 AM CDT [facility] Protein Total 5.7(L) 6.4 - 8.3 g/dL 07/22/2024 8:18 AM CDT [facility] Albumin 3.2(L) 3.5 - 5.2 g/dL 07/22/2024 8:18 AM CDT [facility] Bilirubin Total 0.6 <=1.2 mg/dL 07/22/2024 8:18 AM CDT [facility] Blood STRUCTURE OF LEFT HAND / Unknown Venipuncture / Unknown 07/22/2024 7:28 AM CDT 07/22/2024 7:51 AM CDT Kati Nereida REAL ESTATE LAWYER CNM LAB - BLOOD ORDERABLES Fi nal Result N LABORATORY [facility] [address] * US Lower Extremity Venous Duplex Bilateral (07/22/2024 5:08 AM CDT) Anatomical Region Laterality Modality Vascular, Thigh, Leg Ultrasound 07/22/2024 5:08 AM CDT Impressions 07/22/2024 5:18 AM CDT IMPRESSION: 1. ??No deep venous thrombosis in the bilateral lower extremities. Narrative 07/22/2024 5:18 AM CDT EXAM: US LOWER EXTREMITY VENOUS DUPLEX BILATERAL LOCATION: [facility] DATE: 07/22/2024 INDICATION: chest pain, elevated dimer, [...] US LOWER EXTREMITY VENOUS DUPLEX BILATERAL LOCATION: [facility] DATE: 07/22/2024 INDICATION: chest pain, elevated dimer, [...] venous thrombosis in the bilateral lower extremities. Noreen Bullard MD IMG US ORDERABLES Final Result * (ABNORMAL) Glucose by meter (07/22/2024 4:04 AM CDT) GLUCOSE BY METER POCT 163(H) 70 - 99 mg/dL 07/22/2024 4:12 AM CDT [facility] POCT RESULTS Blood, Capillary BLOOD SPECIMEN / Unknown 07/22/2024 4:04 AM CDT 07/22/2024 4:12 AM CDT Kati Laurent APRN [facility] POCT Final R esult [facility] POCT RESULTS [address] [place] [address] * (ABNORMAL) Glucose by meter (07/22/2024 3:41 AM CDT) GLUCOSE BY METER POCT 69(L) 70 - 99 mg/dL 07/22/2024 3:48 AM CDT [facility] POCT RESULTS Comment:/RN Notified Blood, Capillary BLOOD SPECIMEN / Unknown 07/22/2024 3:41 AM CDT 07/22/2024 3:48 AM CDT Kati Laurent REAL ESTATE LAWYER CNM LAB - [facility]ER POCT Final R esult Performing Organization Address [facility] Co de Phone Number [facility] POCT RESULTS [address] [place] [address] * (ABNORMAL) Magnesium (07/22/2024 1:26 AM CDT) Magnesium 1.6(L) 1.7 - 2.3 mg/dL 07/22/2024 1:57 AM CDT [facility] Blood STRUCTURE OF LEFT UPPER LIMB / Unknown Venipuncture / Unknown 07/22/2024 1:26 AM CDT 07/22/2024 1:42 AM CDT Noreen Bullard MD LAB - BLOOD ORDERABLES Final Re sult Performing Organization Address [facility] Co de Phone Number [facility] [address] * US Abdomen Complete (07/21/2024 11:03 PM CDT) Anatomical Region Laterality Modality Abdomen/Pelvis Ultrasound 07/21/2024 11:0 3 PM CDT Impressions 07/21/2024 11:47 PM CDT IMPRESSION: 1. ??Mild right hydronephrosis. 2. ??No visible cholelithiasis or biliary dilatation. Sonographic Ventura's sign negative. 3. ??Mild splenomegaly. Narrative 07/21/2024 11:47 PM CDT EXAM: US ABDOMEN COMPLETE LOCATION: [facility] DATE: 07/21/2024 INDICATION: 32 weeks preg with [...] - 07/21/2024 EXAM: US ABDOMEN COMPLETE LOCATION: [facility] DATE: 07/21/2024 INDICATION: 32 weeks preg with [...] dilatation. Sonographic Ventura'ssign negative. 3. Mild splenomegaly. Kati Laurent APRN [facility] US ORDERABLES Final R esult * Troponin T, High Sensitivity (07/21/2024 10:22 PM CDT) Pathologist [facility] Troponin T, High Sensitivity <6 <=14 ng/L 07/21/2024 11:10 PM CDT N LABORATORY Comment: Either a High Sensitivity Troponin [...] PM CDT 07/21/2024 10:43 PM CDT us Noreenjesenia Bullard MD LAB - BLOOD ORDERABLES Final Re sult Performing Organization Address [facility] de Phone Number [facility] [address] * (ABNORMAL) D dimer quantitative (07/21/2024 10:22 PM CDT) D-Dimer Quantitative 1.26(H) 0.00 - 0.50 ug/mL FEU 07/21/2024 11:40 PM CDT [facility] Blood STRUCTURE OF LEFT UPPER LIMB / Unknown Venipuncture / Unknown 07/21/2024 10:22 PM CDT 07/21/2024 10:43 PM CDT Narrative [facility] - 07/21/2024 11:40 PM CDT This D-dimer assay is intended for use in conjunction with a clinical pretest probability assessment model to exclude pulmonary embolism (PE) and deep venous thrombosis (DVT) in outpatients suspected of PE or DVT. The cut-off value is 0.50 ug/mL FEU. us Noreen Bullard MD LAB - BLOOD ORDERABLES Final Re sult Performing Organization Address [facility] de Phone Number [facility] [address] * ECG 12-LEAD WITH MUSE (LHE) (07/21/2024 10:12 PM CDT) Systolic Blood Pressure mmHg RADIOLOGY RESULTS Diastolic Blood Pressure mmHg RADIOLOGY RESULTS Ventricular Rate 76 BPM RAD IOLOGY RESULTS Atrial Rate 76 BPM RADIOLOG Y RESULTS MO Interval 138 ms RADIOLOG Y RESULTS QRS Duration 70 ms RADIOLO GY RESULTS QT 384 ms RADIOLOGY RESULTS QTc 432 ms RADIOLOGY RESULTS P [place] 18 degrees RADIOLOGY RESULTS R AXIS 3 degrees RADIOLOGY RESULTS T [place] 61 degrees RADIOLOGY RESULTS Interpretation ECG Sinus rhythm with sinus arrhythmia Anterior infarct , age undetermined ST & T wave abnormality, consider lateral ischemia Abnormal ECG No previous ECGs available Confirmed by GEURINK ??SILVIA BHATT LOC:[facility] ([id number]) on 07/22/2024 7:31:43 AM RADIOLOGY RESULTS 07/21/2024 10:1 2 PM CDT 07/22/2024 7:31 AM CDT us Noreen Bullard MD ECG ORDERABLES Edited Result - Final RADIOLOGY RESULTS * Hemoglobin A1c (07/21/2024 8:13 PM CDT) Estimated Average Glucose 97 <117 mg/dL 07/22/2024 8:15 AM CDT [facility] Hemoglobin A1C 5.0 <5.7 % 07/22/2024 8:15 AM CDT [facility] Comment: Normal <5.7% Prediabetes 5.7-6.4% ?? Diabetes 6.5% or higher Note: Adopted from ADA consensus guidelines. Blood STRUCTURE OF RIGHT HAND / Unknown Venipuncture / Unknown 07/21/2024 8:13 PM CDT 07/21/2024 8:22 PM CDT us Allison Valenzuela MD LAB - BLOOD ORDERABLES Final Re sult Performing Organization Address [facility] Co de Phone Number [facility] [address] [place] [address], [facility] * Extra Red Top Tube (LAB USE ONLY) (07/21/2024 8:13 PM CDT) Hold Specimen JIC 07/21/2024 9:31 PM CDT [facility] Blood BLOOD SPECIMEN / Unknown Venipuncture / Unknown 07/21/2024 8:13 PM CDT 07/21/2024 8:22 PM CDT us Kati ARANGOM LAB - BLOOD ORDERABLES Fi nal Result [facility] [address] * Adult Type and Screen (07/21/2024 8:13 PM CDT) Pathologist [facility] ABO/RH(D) O POS 07/21/2024 8:08 PM CDT [facility] Antibody Screen Negative Negative 07/21/2024 8:08 PM CDT [facility] SPECIMEN EXPIRATION DATE [id number] 07/21/2024 8:08 PM CDT [facility] Blood STRUCTURE OF RIGHT HAND / Unknown Venipuncture / Unknown 07/21/2024 8:13 PM CDT 07/21/2024 8:22 PM CDT us Kati Laurent APRN, CNM LAB - BLOOD BANK TEST ORD ER Final Result Performing Organization Address City/[facility] Co de Phone Number [facility] [address] * Lipase (07/21/2024 8:13 PM CDT) Pathologist [facility] Lipase 22 13 - 60 U/L 07/21/2024 8:49 PM CDT [facility] Blood STRUCTURE OF RIGHT HAND / Unknown Venipuncture / Unknown 07/21/2024 8:13 PM CDT 07/21/2024 8:22 PM CDT us Kati ARANGO LAB - BLOOD ORDERABLES Fi nal Result [facility] [address] * (ABNORMAL) Comprehensive metabolic panel (07/21/2024 8:13 PM CDT) Pathologist [facility] Sodium 137 135 - 145 mmol/L 07/21/2024 8:49 PM CDT [facility] Potassium 3.5 3.4 - 5.3 mmol/L 07/21/2024 8:49 PM CDT [facility] Carbon Dioxide (CO2) 20(L) 22 - 29 mmol/L 07/21/2024 8:49 PM CDT [facility] Anion Gap 11 7 - 15 mmol/L 07/21/2024 8:49 PM CDT [facility] Urea Nitrogen 4.1(L) 6.0 - 20.0 mg/dL 07/21/2024 8:49 PM CDT [facility] Creatinine 0.44(L) 0.51 - 0.95 mg/dL 07/21/2024 8:49 PM CDT [facility] GFR Estimate >90 >60 mL/min/1.7 3m2 07/21/2024 8:49 PM CDT [facility] Comment:eGFR calculated us2020 CKD-EPI equation. Calcium 8.5(L) 8.8 - 10.4 mg/dL 07/21/2024 8:49 PM CDT [facility] Comment:Reference intervals for this test were updated on 05/06/2024 to reflect our healthy population more accurately. There may be differences in the flagging of prior results with similar values performed with this method. Those prior results can be interpreted in the context of the updated reference intervals. Chloride 106 98 - 107 mmol/L 07/21/2024 8:49 PM CDT [facility] Glucose 87 70 - 99 mg/dL 07/21/2024 8:49 PM CDT [facility] Alkaline Phosphatase 88 40 - 150 U/L 07/21/2024 8:49 PM CDT [facility] AST 20 0 - 45 U/L 07/21/2024 8:49 PM CDT [facility] ALT 14 0 - 50 U/L 07/21/2024 8:49 PM CDT [facility] Protein Total 6.6 6.4 - 8.3 g/dL 07/21/2024 8:49 PM CDT [facility] Albumin 3.6 3.5 - 5.2 g/dL 07/21/2024 8:49 PM CDT [facility] Bilirubin Total 0.6 <=1.2 mg/dL 07/21/2024 8:49 PM CDT [facility] Blood STRUCTURE OF RIGHT HAND / Unknown Venipuncture / Unknown 07/21/2024 8:13 PM CDT 07/21/2024 8:22 PM CDT us Kati Laurent APRN CNM LAB - BLOOD ORDERABLES Fi nal Result [facility] [address] [place] [address], [facility] * (ABNORMAL) CBC with platelets (07/21/2024 8:13 PM CDT) WBC Count 9.6 4.0 - 11.0 10e3/uL 07/21/2024 8:25 PM CDT [facility] RBC Count 3.74(L) 3.80 - 5.20 10e6/uL 07/21/2024 8:25 PM CDT N LAB[facility]ORY Hemoglobin 10.2(L) 11.7 - 15.7 g/dL 07/21/2024 8:25 PM CDT N LAB[facility]ORY Hematocrit 30.9(L) 35.0 - 47.0 % 07/21/2024 8:25 PM CDT N [facility] MCV 83 78 - 100 fL 07/21/2024 8:25 PM CDT N [facility] MCH 27.3 26.5 - 33.0 pg 07/21/2024 8:25 PM CDT N [facility] MCHC 33.0 31.5 - 36.5 g/dL 07/21/2024 8:25 PM CDT [facility] RDW 12.8 10.0 - 15.0 % 07/21/2024 8:25 PM CDT N [facility] Platelet Count 206 150 - 450 10e3/uL 07/21/2024 8:25 PM CDT N [facility] Blood STRUCTURE OF RIGHT HAND / Unknown Venipuncture / Unknown 07/21/2024 8:13 PM CDT 07/21/2024 8:22 PM CDT Kati Laurent APRN CN LAB - BLOOD ORDERABLES Fi nal Result [facility] [address] [place] [address], [facility] * Protein random urine (07/21/2024 7:58 PM CDT) Total Protein Urine mg/dL 17.4 mg/dL 07/21/2024 8:52 PM CDT [facility] Comment:The reference ranges have not been established in urine protein. The results should be integrated into the clinical context for interpretation. Total Protein Urine mg/mg Creat 0.09 0.00 - 0.20 mg/mg Cr 07/21/2024 8:52 PM CDT [facility] Creatinine Urine mg/dL 187.5 mg/dL 07/21/2024 8:52 PM CDT [facility] Comment:The reference ranges have not been established in urine creatinine. The results should be integrated into the clinical context for interpretation. Urine URINE SPECIMEN OBTAINED BY CLEAN CATCH PROCEDURE / Unknown Non-blood Collection / Unknown 07/21/2024 7:58 PM CDT 07/21/2024 8:06 PM CDT Kati Laurent APRN CNM LAB - URINE ORDERABLES Fi nal Result [facility] [address] documented in this encounter Visit Diagnoses Diagnosis Encounter for triage in patient RUQ pain Abdominal pain, right upper quadrant documented in this encounter Administered Medications Inactive Administered Medications - up to 3 most recent administrations Medication Order MAR Action Action Date Dose Rate Site acetaminophen (TYLENOL) tablet 650 mg 650 mg, Oral, EVERY 4 HOURS PRN, mild pain, fever, headaches, temp greater than or equal to 38 C /100.4 F (oral) or 38.5 C/ 101.4 F (core), Starting on Sun07/21/24 at 2230, Maximum acetaminophen dose from all sources = 75 mg/kg/day not to exceed 4 grams/day., Antepartum albuterol (PROVENTIL) neb solution 2.5 mg 2.5 mg, Nebulization, EVERY 6 HOURS RT, First dose on Sun07/22/24 at 0300 alum & mag hydroxide-simethicone (MAALOX) suspension 30 mL 30 mL, Oral, 2 TIMES DAILY PRN, indigestion, GI discomfort, Starting on Sun07/21/24 at 2231, For 1 dose, If GI discomfort continues, notify provider, Antepartum aspirin EC tablet 81 mg 81 mg, Oral, DAILY, First dose on Sun07/22/24 at 0900, DO NOT CRUSH. $Given 07/22/2024 8:05 AM CDT 81 mg benzocaine-menthol (CHLORASEPTIC) 6-10 MG lozenge 1 lozenge 1 lozenge, Buccal, EVERY 1 HOUR PRN, sore throat, Starting on Sun07/21/24 at 2232, Antepartum calcium carbonate (TUMS) chewable tablet 1,000 mg 1,000 mg, Oral, EVERY 6 HOURS PRN, heartburn, Starting on Sun07/21/24 at 2232, If heartburn continues after 2 doses, notify provider. Do NOT administer within 12 hours of scheduled surgical procedure., Antepartum cefTRIAXone (ROCEPHIN) 1 g vial to attach to NS 100 mL bag for ADULTS or NS 50 mL bag for PEDS Routine, 1 g, Intravenous, EVERY 24 HOURS, First dose on Sun07/21/24 at 2200, Indications: PyelonephritisIndications:Pyelon ephritis $New Bag 07/21/2024 10:01 PM CDT 1 g dextrose 50 % injection 25-50 mL 25-50 mL, Intravenous, EVERY 15 MIN PRN, low blood sugar, Administer over 1-5 Minutes, Starting on Sun07/21/24 at 2219, Use if have IV access, BG less than 70 mg/dL and meet dose criteria below: Dose if conscious and alert (or disorientated) and NPO = 25 mL Dose if unconscious / not alert = 50 mL Give first dose for initial blood glucose less than 70 mg/dL. If blood glucose at 15 minute recheck is less than or equal to 80 mg/dL continue to administer carbohydrate treatment every 15 minutes, as needed, based on blood glucose and assessment parameters until blood glucose level is above 80 mg/dL x 2 consecutive 15 minute checks. $Given 07/22/2024 3:45 AM CDT 25 mLs docusate sodium (COLACE) capsule 100 mg 100 mg, Oral, 2 TIMES DAILY, First dose on Sun07/21/24 at 2300, Hold for loose stools., Antepartum famotidine (PEPCID) injection 20 mg 20 mg, Intravenous, Administer over 2 Minutes, EVERY 12 HOURS, First dose on Sun07/21/24 at 2230, For ordered IV doses 1-20 mg, give IV Push diluted with 5-10 mL NS over a minimum of 2 minutes. $Given 07/22/2024 12:00 AM CDT 20 mg famotidine (PEPCID) tablet 20 mg 20 mg, Oral, 2 TIMES DAILY, First dose on Sun07/22/24 at 1100 glucagon injection 1 mg 1 mg, Subcutaneous, EVERY 15 MIN PRN, low blood sugar, May repeat x 1 only, Starting on Sun07/21/24 at 2219, May give SQ or IM. ONLY use glucagon IF patient has NO IV access AND is UNABLE to swallow AND blood glucose is LESS than or EQUAL to 50 mg/dL. glucose gel 15-30 g 15-30 g, Oral, EVERY 15 MIN PRN, low blood sugar, Starting on Sun07/21/24 at 2219, Give first dose for initial blood glucose less than 70 mg/dL per the dosing instructions below. If blood glucose at 15 minute rechecks is still less than or equal to 80 mg/dL, continue to administer doses per blood glucose parameters every 15 minutes, as needed, until blood glucose level is at or above 80 mg/dL x 2 consecutive 15 minute checks. Dosing Instructions: ~If patient is conscious and able to swallow and NO enteral tube For initial BG 51-69mg/dL OR 15 minute recheck BG 51- 80 mg/dL - give 15 g For BG less than or equal to 50 mg/dL - give 30 g ~ If Enteral tube For initial BG 51-69mg/dL OR 15 minute recheck BG 51- 80 mg/dL - give apple juice 120 mL (4 oz or 15 g of CHO) via enteral tube For BG less than or equal to 50 mg/dL - Give apple juice 240 mL (8 oz or 30 g of CHO) via enteral tube ~Oral gel is preferable for conscious and able to swallow patient. ~IF gel unavailable or patient refuses may provide apple juice per Enteral tube dosing instructions. Document juice on I and O flowsheet. hydrOXYzine HCl (ATARAX) tablet 50 mg 50 mg, Oral, AT BEDTIME PRN, itching, sleep, Starting on Sun07/21/24 at 2232, Antepartum insulin aspart (NovoLOG) injection (RAPID ACTING) 6 Units, Subcutaneous, DAILY WITH BREAKFAST, First dose on Sun07/22/24 at 0800 insulin aspart (NovoLOG) injection (RAPID ACTING) 4 Units, Subcutaneous, DAILY WITH LUNCH, First dose on Sun07/22/24 at 1200 insulin aspart (NovoLOG) injection (RAPID ACTING) 4 Units, Subcutaneous, DAILY WITH SUPPER, First dose on Sun07/21/24 at 2230 insulin aspart (NovoLOG) injection (RAPID ACTING) 1-7 Units, Subcutaneous, 3 TIMES DAILY BEFORE MEALS, First dose on Sun07/22/24 at 0800, Correction Scale - MEDIUM INSULIN RESISTANCE DOSING Do Not give Correction Insulin if Pre-Meal BG less than 140. For Pre-Meal BG 140 - 189 give 1 unit. For Pre-Meal BG 190 - 239 give 2 units. For Pre-Meal BG 240 - 289 give 3 units. For Pre-Meal BG 290 - 339 give 4 units. For Pre-Meal BG 340- 389 give 5 units. For Pre-Meal BG 390-439 give 6 units For Pre-Meal BG greater than or equal to 440 give 7 units. To be given with prandial insulin, and based on pre-meal blood glucose. Administering insulin within 5 minutes of the start of the meal is ideal. Administer insulin no more than 30 minutes after the start of the meal, unless directed otherwise by provider. Notify provider if glucose greater than or equal to 350 mg/dL after administration of correction dose. insulin aspart (NovoLOG) injection (RAPID ACTING) 1-5 Units, Subcutaneous, AT BEDTIME, First dose on Sun07/22/24 at 2100, MEDIUM INSULIN RESISTANCE DOSING Do Not give Bedtime Correction Insulin if BG less than 200. For BG 200 - 249 give 1 units. For BG 250 - 299 give 2 units. For BG 300 - 349 give 3 units. For BG 350 -399 give 4 units. For BG greater than or equal to 400 give 5 units. Notify provider if glucose greater than or equal to 350 mg/dL after administration of correction dose. insulin detemir (LEVEMIR PEN) injection 54 Units 54 Units, Subcutaneous, AT BEDTIME, First dose on Sun07/21/24 at 2230 $Given 07/21/2024 11:15 PM CDT 54 Units labetalol (NORMODYNE) tablet 100 mg 100 mg, Oral, EVERY 12 HOURS SCHEDULED, First dose on Sun07/21/24 at 2230 $Given 07/22/2024 8:05 AM CDT 100 mg $Given 07/21/2024 11:16 PM CDT 100 mg lactated ringers BOLUS 1,000 mL Intravenous, 1,000 mL, ONCE, On Sun07/21/24 at 2100, For 1 dose $New Bag 07/21/2024 8:42 PM CDT 1,000 mLs lactated ringers infusion at 125 mL/hr, Intravenous, CONTINUOUS, Antepartum, Starting on Sun07/21/24 at 2300, Until Sun07/22/24 at 1437 $New Bag 07/22/2024 3:38 AM CDT 125 mL/hr magnesium oxide (MAG-OX) tablet 400 mg 400 mg, Oral, EVERY 4 HOURS, First dose on Sun07/22/24 at 0330, For 2 doses, Avoid using oral magnesium if patient has current diarrhea. Magnesium level 1.6-2 mg/dL Administer 400 mg ORAL magnesium x 2 doses and recheck magnesium level the AM after the last ORAL dose. Ordered from the Magnesium replacement order set., Magnesium Replacement: Magnesium level 1.6-2 mg/dL, Recheck: Magnesium level next AM $Given 07/22/2024 8:05 AM CDT 400 mg $Given 07/22/2024 3:53 AM CDT 400 mg metFORMIN (GLUCOPHAGE) tablet 500 mg 500 mg, Oral, 2 TIMES DAILY WITH MEALS, First dose on Sun07/22/24 at 0900, If the patient receives intravenous, iodinated contrast and patient GFR is greater than 60 mL/min/1.7m2, continue metformin. Contact provider for 'hold' or 'no hold' instructions if no GFR or if GFR is less than 60 mL/min/1.7m2., On hold since Sun07/22/2024 at 0732 until manually unheld metoclopramide (REGLAN) injection 10 mg 10 mg, Intravenous, Administer over 2 Minutes, EVERY 6 HOURS PRN, nausea, vomiting, Starting on Sun07/21/24 at 2230, This is Step 1 of OB nausea and vomiting management. Use IV if not tolerating oral therapy. If nausea is not resolved in 30 minutes, go to Step 2 (Zofran). Avoid use if patient has full bowel obstruction or perforation., Antepartum metoclopramide (REGLAN) tablet 10 mg 10 mg, Oral, EVERY 6 HOURS PRN, nausea and vomiting, Starting on Sun07/21/24 at 2230, This is Step 1 of OB nausea and vomiting management. Preferred route. If nausea is not resolved in 30 minutes, go to Step 2 (Zofran), Antepartum nitroFURantoin macrocrystal-monohydrate (MACROBID) capsule 100 mg Routine, 100 mg, Oral, EVERY 12 HOURS SCHEDULED, First dose on Sun07/21/24 at 2100, For 3 days, Indications: UTIIndications:UTI $Given 07/22/2024 9:05 AM CDT 100 mg $Given 07/21/2024 8:49 PM CDT 100 mg ondansetron (ZOFRAN ODT) ODT tab 4 mg 4 mg, Oral, EVERY 6 HOURS PRN, nausea, vomiting, Starting on Sun07/21/24 at 2230, This is Step 2 of OB nausea and vomiting management. Preferred route. Give If nausea not resolved in 30 minutes after giving metoclopramide (REGLAN). If nausea is not resolved in 15 minutes, go to Step 3 (Compazine). With dry hands, peel back foil backing and gently remove tablet. Do not push oral disintegrating tablet through foil backing. Administer immediately on tongue and oral disintegrating tablet dissolves in seconds, then swallow with saliva. Liquid not required., Antepartum ondansetron (ZOFRAN) injection 4 mg 4 mg, Intravenous, EVERY 6 HOURS PRN, nausea, vomiting, Administer over 2-5 Minutes, Starting on Sun07/21/24 at 2230, This is Step 2 of OB nausea and vomiting management. Use IV if not tolerating oral therapy. Give if nausea not resolved 30 minutes after giving metoclopramide (REGLAN). If nausea is not resolved in 15 minutes, go to Step 3 (Compazine)., Antepartum potassium chloride melanie ER (KLOR-CON M20) CR tablet 40 mEq 40 mEq, Oral, ONCE, On Sun07/22/24 at 1200, For 1 dose, Potassium level 3.1 - 3.4 mmol/L Ordered from the Potassium replacement order set. DO NOT CRUSH, Potassium Replacement: Potassium level 3.1-3.4 mmol/L, Recheck: Potassium level 4 hours AFTER last oral dose $Given 07/22/2024 12:13 PM CDT 40 mEq multivitamin w/iron per tablet 1 tablet 1 tablet, Oral, DAILY, First dose on Sun07/22/24 at 0900, Antepartum prochlorperazine (COMPAZINE) injection 10 mg 10 mg, Intravenous, EVERY 6 HOURS PRN, nausea, vomiting, Administer over 2 Minutes, Starting on Sun07/21/24 at 2230, This is Step 3 of OB nausea and vomiting management. Use IV if not tolerating oral therapy. Give if nausea not resolved 15 minutes after giving ondansetron (ZOFRAN). If nausea is not resolved in 30 minutes, notify provider., Antepartum prochlorperazine (COMPAZINE) tablet 10 mg 10 mg, Oral, EVERY 6 HOURS PRN, nausea, vomiting, Starting on Sun07/21/24 at 2230, This is Step 3 of OB nausea and vomiting management. Preferred route. Give if nausea not resolved 15 minutes after giving ondansetron (ZOFRAN). If nausea is not resolved in 30 minutes, notify provider., Antepartum simethicone (MYLICON) chewable tablet 160 mg 160 mg, Oral, EVERY 6 HOURS PRN, other, abdominal gas, Starting on Sun07/21/24 at 2231, MAX: 480 mg (6 tabs)/24h, Antepartum sodium chloride (PF) 0.9% PF flush 3 mL 3 mL, Intracatheter, EVERY 8 HOURS, First dose on Sun07/21/24 at 2000, to lock peripheral IV dormant line, OB Preadmission $Given 07/21/2024 8:45 PM C DT 3 mLs documented in this encounter Active and Recently Administered Medications Times are shown in CDT. Scheduled Medication Order 07/20/2024 07/21/2024 07/22/2024 albuterol (PROVENTIL) neb solution 2.5 mg 2.5 mg, Nebulization, EVERY 6 HOURS RT, First dose on Sun07/22/24 at 0300 0509 (Not Given - Provider: Real Little RN - Reason: Patient/family refused)0844 (Not Given - Provider: Aziza Montemayor RT - Reason: Patient/family refused - Comment: pt refused, requested to talk to doctor regarding any medication to be given.)1400 (Canceled Entry - Provider: Orders Generic Provider - Comment: Automatically canceled at discontinue of medication order) aspirin EC tablet 81 mg 81 mg, Oral, DAILY, First dose on Sun07/22/24 at 0900, DO NOT CRUSH. 0805 ($Given - Provi ector: Heydi Mckeon, KATHI) cefTRIAXone (ROCEPHIN) 1 g vial to attach to NS 100 mL bag for ADULTS or NS 50 mL bag for PEDS Routine, 1 g, Intravenous, EVERY 24 HOURS, First dose on Sun07/21/24 at 2200, Indications: Pyelonephritis 2200 ($New Bag - Provider: Edwina Hua, KATHI) docusate sodium (COLACE) capsule 100 mg 100 mg, Oral, 2 TIMES DAILY, First dose on Sun07/21/24 at 2300, Hold for loose stools., Antepartum 2351 (Not Given - Provider: Jess Fernandez RN - Reason: Patient/family refused) 0800 (Not Given - Provider: Heydi Mckeon RN - Reason: Patient/family refused) famotidine (PEPCID) injection 20 mg (CANCELED) 20 mg, Intravenous, Administer over 2 Minutes, EVERY 12 HOURS, First dose on Sun07/21/24 at 2230, For ordered IV doses 1-20 mg, give IV Push diluted with 5-10 mL NS over a minimum of 2 minutes. 0000 ($Given - Provi ector: Jess Fernandez RN)1053 (Not Given - Provider: Heydi Mckeon RN - Reason: Other - Comment: switched to PO) famotidine (PEPCID) tablet 20 mg 20 mg, Oral, 2 TIMES DAILY, First dose on Sun07/22/24 at 1100 1100 (Canceled Entry - Provider: Orders Generic Provider - Comment: Automatically canceled at discontinue of medication order) insulin aspart (NovoLOG) injection (RAPID ACTING) 6 Units, Subcutaneous, DAILY WITH BREAKFAST, First dose on Sun07/22/24 at 0800 0905 (Not Given - Provider: Heydi Mckeon RN - Reason: Other - Comment: Blood glucose low-discussed with Dr. Valenzuela, who agreed novolog should not be given this am) insulin aspart (NovoLOG) injection (RAPID ACTING) 4 Units, Subcutaneous, DAILY WITH LUNCH, First dose on Sun07/22/24 at 1200 1200 (Canceled Entry - Provider: Orders Generic Provider - Comment: Automatically canceled at discontinue of medication order) insulin aspart (NovoLOG) injection (RAPID ACTING) 4 Units, Subcutaneous, DAILY WITH SUPPER, First dose on Sun07/21/24 at 2230 2317 (Hold - Provider: Edwina Hua RN - Reason: Order parameters not met) insulin aspart (NovoLOG) injection (RAPID ACTING) 1-7 Units, Subcutaneous, 3 TIMES DAILY BEFORE MEALS, First dose on Sun07/22/24 at 0800, Correction Scale - MEDIUM INSULIN RESISTANCE DOSING Do Not give Correction Insulin if Pre-Meal BG less than 140. For Pre-Meal BG 140 - 189 give 1 unit. For Pre-Meal BG 190 - 239 give 2 units. For Pre-Meal BG 240 - 289 give 3 units. For Pre-Meal BG 290 - 339 give 4 units. For Pre-Meal BG 340- 389 give 5 units. For Pre-Meal BG 390-439 give 6 units For Pre-Meal BG greater than or equal to 440 give 7 units. To be given with prandial insulin, and based on pre-meal blood glucose. Administering insulin within 5 minutes of the start of the meal is ideal. Administer insulin no more than 30 minutes after the start of the meal, unless directed otherwise by provider. Notify provider if glucose greater than or equal to 350 mg/dL after administration of correction dose. 0904 (Not Given - Provider: Heydi Mckeon RN - Reason: Order parameters not met)1130 (Canceled Entry - Provider: Orders Generic Provider - Comment: Automatically canceled at discontinue of medication order) insulin aspart (NovoLOG) injection (RAPID ACTING) 1-5 Units, Subcutaneous, AT BEDTIME, First dose on Sun07/22/24 at 2100, MEDIUM INSULIN RESISTANCE DOSING Do Not give Bedtime Correction Insulin if BG less than 200. For BG 200 - 249 give 1 units. For BG 250 - 299 give 2 units. For BG 300 - 349 give 3 units. For BG 350 -399 give 4 units. For BG greater than or equal to 400 give 5 units. Notify provider if glucose greater than or equal to 350 mg/dL after administration of correction dose. insulin detemir (LEVEMIR PEN) injection 54 Units 54 Units, Subcutaneous, AT BEDTIME, First dose on Sun07/21/24 at 2230 2315 ($Given - Provider: Edwina Hua, KATHI) labetalol (NORMODYNE) tablet 100 mg 100 mg, Oral, EVERY 12 HOURS SCHEDULED, First dose on Sun07/21/24 at 2230 2316 ($Given - Provider: Edwina Hua RN) 0805 ($Given - Provider: Heydi Mckeon, KATHI) lactated ringers BOLUS 1,000 mL (COMPLETED) Intravenous, 1,000 mL, ONCE, On Sun07/21/24 at 2100, For 1 dose 2041 ($New Bag - Provider: Edwina Hua RN) magnesium oxide (MAG-OX) tablet 400 mg (COMPLETED) 400 mg, Oral, EVERY 4 HOURS, First dose on Sun07/22/24 at 0330, For 2 doses, Avoid using oral magnesium if patient has current diarrhea. Magnesium level 1.6-2 mg/dL Administer 400 mg ORAL magnesium x 2 doses and recheck magnesium level the AM after the last ORAL dose. Ordered from the Magnesium replacement order set., Magnesium Replacement: Magnesium level 1.6-2 mg/dL, Recheck: Magnesium level next AM 0353 ($Given - Provi ector: Real Little RN)0805 ($Given - Provider: Heydi Mckeon RN) metFORMIN (GLUCOPHAGE) tablet 500 mg 500 mg, Oral, 2 TIMES DAILY WITH MEALS, First dose on Sun07/22/24 at 0900, If the patient receives intravenous, iodinated contrast and patient GFR is greater than 60 mL/min/1.7m2, continue metformin. Contact provider for 'hold' or 'no hold' instructions if no GFR or if GFR is less than 60 mL/min/1.7m2., On hold since Sun07/22/2024 at 0732 until manually unheld 0732 (Held by provid er - Provider: Allison Valenzuela MD - Reason: Other)0900 (Automatically Held - Provider: Allison Valenzuela MD)1437 (Unheld by provider - Provider: Orders Generic Provider) nitroFURantoin macrocrystal-monohydrate (MACROBID) capsule 100 mg Routine, 100 mg, Oral, EVERY 12 HOURS SCHEDULED, First dose on Sun07/21/24 at 2100, For 3 days, Indications: UTI 2048 ($Given - Provider: Edwina Hua RN) 0905 ($Given - Provider: Heydi Mckeon, KATHI) potassium chloride melanie ER (KLOR-CON M20) CR tablet 40 mEq (COMPLETED) 40 mEq, Oral, ONCE, On Sun07/22/24 at 1200, For 1 dose, Potassium level 3.1 - 3.4 mmol/L Ordered from the Potassium replacement order set. DO NOT CRUSH, Potassium Replacement: Potassium level 3.1-3.4 mmol/L, Recheck: Potassium level 4 hours AFTER last oral dose 1213 ($Given - Provi ector: Heydi Mckeon, KATHI) multivitamin w/iron per tablet 1 tablet 1 tablet, Oral, DAILY, First dose on Sun07/22/24 at 0900, Antepartum 0802 (Not Given - Provider: Heydi Mckeon, RN - Reason: Patient/family refused) sodium chloride (PF) 0.9% PF flush 3 mL (CANCELED) 3 mL, Intracatheter, EVERY 8 HOURS, First dose on Sun07/21/24 at 2000, to lock peripheral IV dormant line, OB Preadmission 2044 ($Given - Provider: Edwina Hua RN) Continuous Medication Order 07/20/2024 07/21/2024 07/22/2024 lactated ringers infusion at 125 mL/hr, Intravenous, CONTINUOUS, Antepartum, Starting on Sun07/21/24 at 2300, Until Sun07/22/24 at 1437 0338 ($New Bag - Pro vider: Real Little RN) PRN Medication Order 07/20/2024 07/21/2024 07/22/2024 acetaminophen (TYLENOL) tablet 650 mg 650 mg, Oral, EVERY 4 HOURS PRN, mild pain, fever, headaches, temp greater than or equal to 38 C /100.4 F (oral) or 38.5 C/ 101.4 F (core), Starting on Sun07/21/24 at 2230, Maximum acetaminophen dose from all sources = 75 mg/kg/day not to exceed 4 grams/day., Antepartum alum & mag hydroxide-simethicone (MAALOX) suspension 30 mL 30 mL, Oral, 2 TIMES DAILY PRN, indigestion, GI discomfort, Starting on Sun07/21/24 at 2231, For 1 dose, If GI discomfort continues, notify provider, Antepartum benzocaine-menthol (CHLORASEPTIC) 6-10 MG lozenge 1 lozenge 1 lozenge, Buccal, EVERY 1 HOUR PRN, sore throat, Starting on Sun07/21/24 at 2232, Antepartum calcium carbonate (TUMS) chewable tablet 1,000 mg 1,000 mg, Oral, EVERY 6 HOURS PRN, heartburn, Starting on Sun07/21/24 at 2232, If heartburn continues after 2 doses, notify provider. Do NOT administer within 12 hours of scheduled surgical procedure., Antepartum dextrose 50 % injection 25-50 mL(Linked Group 1) 25-50 mL, Intravenous, EVERY 15 MIN PRN, low blood sugar, Administer over 1-5 Minutes, Starting on Sun07/21/24 at 2219, Use if have IV access, BG less than 70 mg/dL and meet dose criteria below: Dose if conscious and alert (or disorientated) and NPO = 25 mL Dose if unconscious / not alert = 50 mL Give first dose for initial blood glucose less than 70 mg/dL. If blood glucose at 15 minute recheck is less than or equal to 80 mg/dL continue to administer carbohydrate treatment every 15 minutes, as needed, based on blood glucose and assessment parameters until blood glucose level is above 80 mg/dL x 2 consecutive 15 minute checks. 0345 ($Given - Provi ector: Real Little RN) glucagon injection 1 mg(Linked Group 1) 1 mg, Subcutaneous, EVERY 15 MIN PRN, low blood sugar, May repeat x 1 only, Starting on Sun07/21/24 at 2219, May give SQ or IM. ONLY use glucagon IF patient has NO IV access AND is UNABLE to swallow AND blood glucose is LESS than or EQUAL to 50 mg/dL. 0345 (See Alternativ e - Provider: Real Little RN) glucose gel 15-30 g(Linked Group 1) 15-30 g, Oral, EVERY 15 MIN PRN, low blood sugar, Starting on Sun07/21/24 at 2219, Give first dose for initial blood glucose less than 70 mg/dL per the dosing instructions below. If blood glucose at 15 minute rechecks is still less than or equal to 80 mg/dL, continue to administer doses per blood glucose parameters every 15 minutes, as needed, until blood glucose level is at or above 80 mg/dL x 2 consecutive 15 minute checks. Dosing Instructions: ~If patient is conscious and able to swallow and NO enteral tube For initial BG 51-69mg/dL OR 15 minute recheck BG 51- 80 mg/dL - give 15 g For BG less than or equal to 50 mg/dL - give 30 g ~ If Enteral tube For initial BG 51-69mg/dL OR 15 minute recheck BG 51- 80 mg/dL - give apple juice 120 mL (4 oz or 15 g of CHO) via enteral tube For BG less than or equal to 50 mg/dL - Give apple juice 240 mL (8 oz or 30 g of CHO) via enteral tube ~Oral gel is preferable for conscious and able to swallow patient. ~IF gel unavailable or patient refuses may provide apple juice per Enteral tube dosing instructions. Document juice on I and O flowsheet. 0345 (See Alternativ e - Provider: Real Little RN) hydrOXYzine HCl (ATARAX) tablet 50 mg 50 mg, Oral, AT BEDTIME PRN, itching, sleep, Starting on Sun07/21/24 at 2232, Antepartum metoclopramide (REGLAN) injection 10 mg(Linked Group 2) 10 mg, Intravenous, Administer over 2 Minutes, EVERY 6 HOURS PRN, nausea, vomiting, Starting on Sun07/21/24 at 2230, This is Step 1 of OB nausea and vomiting management. Use IV if not tolerating oral therapy. If nausea is not resolved in 30 minutes, go to Step 2 (Zofran). Avoid use if patient has full bowel obstruction or perforation., Antepartum metoclopramide (REGLAN) tablet 10 mg(Linked Group 2) 10 mg, Oral, EVERY 6 HOURS PRN, nausea and vomiting, Starting on Sun07/21/24 at 2230, This is Step 1 of OB nausea and vomiting management. Preferred route. If nausea is not resolved in 30 minutes, go to Step 2 (Zofran), Antepartum ondansetron (ZOFRAN ODT) ODT tab 4 mg(Linked Group 3) 4 mg, Oral, EVERY 6 HOURS PRN, nausea, vomiting, Starting on Sun07/21/24 at 2230, This is Step 2 of OB nausea and vomiting management. Preferred route. Give If nausea not resolved in 30 minutes after giving metoclopramide (REGLAN). If nausea is not resolved in 15 minutes, go to Step 3 (Compazine). With dry hands, peel back foil backing and gently remove tablet. Do not push oral disintegrating tablet through foil backing. Administer immediately on tongue and oral disintegrating tablet dissolves in seconds, then swallow with saliva. Liquid not required., Antepartum ondansetron (ZOFRAN) injection 4 mg(Linked Group 3) 4 mg, Intravenous, EVERY 6 HOURS PRN, nausea, vomiting, Administer over 2-5 Minutes, Starting on Sun07/21/24 at 2230, This is Step 2 of OB nausea and vomiting management. Use IV if not tolerating oral therapy. Give if nausea not resolved 30 minutes after giving metoclopramide (REGLAN). If nausea is not resolved in 15 minutes, go to Step 3 (Compazine)., Antepartum prochlorperazine (COMPAZINE) injection 10 mg(Linked Group 4) 10 mg, Intravenous, EVERY 6 HOURS PRN, nausea, vomiting, Administer over 2 Minutes, Starting on Sun07/21/24 at 2230, This is Step 3 of OB nausea and vomiting management. Use IV if not tolerating oral therapy. Give if nausea not resolved 15 minutes after giving ondansetron (ZOFRAN). If nausea is not resolved in 30 minutes, notify provider., Antepartum prochlorperazine (COMPAZINE) tablet 10 mg(Linked Group 4) 10 mg, Oral, EVERY 6 HOURS PRN, nausea, vomiting, Starting on Sun07/21/24 at 2230, This is Step 3 of OB nausea and vomiting management. Preferred route. Give if nausea not resolved 15 minutes after giving ondansetron (ZOFRAN). If nausea is not resolved in 30 minutes, notify provider., Antepartum simethicone (MYLICON) chewable tablet 160 mg 160 mg, Oral, EVERY 6 HOURS PRN, other, abdominal gas, Starting on Sun07/21/24 at 2231, MAX: 480 mg (6 tabs)/24h, Antepartum Linked Groups Order Group 1: glucose gel 15-30 gJump to med 15-30 g, Oral, EVERY 15 MIN PRN, low blood sugar, Starting on Sun07/21/24 at 2219, Give first dose for initial blood glucose less than 70 mg/dL per the dosing instructions below. If blood glucose at 15 minute rechecks is still less than or equal to 80 mg/dL, continue to administer doses per blood glucose parameters every 15 minutes, as needed, until blood glucose level is at or above 80 mg/dL x 2 consecutive 15 minute checks. Dosing Instructions: ~If patient is conscious and able to swallow and NO enteral tube For initial BG 51-69mg/dL OR 15 minute recheck BG 51- 80 mg/dL - give 15 g For BG less than or equal to 50 mg/dL - give 30 g ~ If Enteral tube For initial BG 51-69mg/dL OR 15 minute recheck BG 51- 80 mg/dL - give apple juice 120 mL (4 oz or 15 g of CHO) via enteral tube For BG less than or equal to 50 mg/dL - Give apple juice 240 mL (8 oz or 30 g of CHO) via enteral tube ~Oral gel is preferable for conscious and able to swallow patient. ~IF gel unavailable or patient refuses may provide apple juice per Enteral tube dosing instructions. Document juice on I and O flowsheet. Or dextrose 50 % injection 25-50 mLJump to med 25-50 mL, Intravenous, EVERY 15 MIN PRN, low blood sugar, Administer over 1-5 Minutes, Starting on Sun07/21/24 at 2219, Use if have IV access, BG less than 70 mg/dL and meet dose criteria below: Dose if conscious and alert (or disorientated) and NPO = 25 mL Dose if unconscious / not alert = 50 mL Give first dose for initial blood glucose less than 70 mg/dL. If blood glucose at 15 minute recheck is less than or equal to 80 mg/dL continue to administer carbohydrate treatment every 15 minutes, as needed, based on blood glucose and assessment parameters until blood glucose level is above 80 mg/dL x 2 consecutive 15 minute checks. Or glucagon injection 1 mgJump to med 1 mg, Subcutaneous, EVERY 15 MIN PRN, low blood sugar, May repeat x 1 only, Starting on Sun07/21/24 at 2219, May give SQ or IM. ONLY use glucagon IF patient has NO IV access AND is UNABLE to swallow AND blood glucose is LESS than or EQUAL to 50 mg/dL. Group 2: metoclopramide (REGLAN) tablet 10 mgJump to med 10 mg, Oral, EVERY 6 HOURS PRN, nausea and vomiting, Starting on Sun07/21/24 at 2230, This is Step 1 of OB nausea and vomiting management. Preferred route. If nausea is not resolved in 30 minutes, go to Step 2 (Zofran), Antepartum Or metoclopramide (REGLAN) injection 10 mgJump to med 10 mg, Intravenous, Administer over 2 Minutes, EVERY 6 HOURS PRN, nausea, vomiting, Starting on Sun07/21/24 at 2230, This is Step 1 of OB nausea and vomiting management. Use IV if not tolerating oral therapy. If nausea is not resolved in 30 minutes, go to Step 2 (Zofran). Avoid use if patient has full bowel obstruction or perforation., Antepartum Group 3: ondansetron (ZOFRAN ODT) ODT tab 4 mgJump to med 4 mg, Oral, EVERY 6 HOURS PRN, nausea, vomiting, Starting on Sun07/21/24 at 2230, This is Step 2 of OB nausea and vomiting management. Preferred route. Give If nausea not resolved in 30 minutes after giving metoclopramide (REGLAN). If nausea is not resolved in 15 minutes, go to Step 3 (Compazine). With dry hands, peel back foil backing and gently remove tablet. Do not push oral disintegrating tablet through foil backing. Administer immediately on tongue and oral disintegrating tablet dissolves in seconds, then swallow with saliva. Liquid not required., Antepartum Or ondansetron (ZOFRAN) injection 4 mgJump to med 4 mg, Intravenous, EVERY 6 HOURS PRN, nausea, vomiting, Administer over 2-5 Minutes, Starting on Sun07/21/24 at 2230, This is Step 2 of OB nausea and vomiting management. Use IV if not tolerating oral therapy. Give if nausea not resolved 30 minutes after giving metoclopramide (REGLAN). If nausea is not resolved in 15 minutes, go to Step 3 (Compazine)., Antepartum Group 4: prochlorperazine (COMPAZINE) tablet 10 mgJump to med 10 mg, Oral, EVERY 6 HOURS PRN, nausea, vomiting, Starting on Sun07/21/24 at 2230, This is Step 3 of OB nausea and vomiting management. Preferred route. Give if nausea not resolved 15 minutes after giving ondansetron (ZOFRAN). If nausea is not resolved in 30 minutes, notify provider., Antepartum Or prochlorperazine (COMPAZINE) injection 10 mgJump to med 10 mg, Intravenous, EVERY 6 HOURS PRN, nausea, vomiting, Administer over 2 Minutes, Starting on 07/21/24 at 2230, This is Step 3 of OB nausea and vomiting management. Use IV if not tolerating oral therapy. Give if nausea not resolved 15 minutes after giving ondansetron (ZOFRAN). If nausea is not resolved in 30 minutes, notify provider., Antepartum documented in this encounter Additional Health Concerns Active Problems Noted Date Diagnosed Date Patient expresses financial resource strain 03/23 documented as of this encounter Care Teams Rocket Motor Mechanic Relationship Specialty Start Date End Date NereidaKatiFATOU CNJose [address] [place] [address] PCP - General live truck technician 07/21/24 No Ref-Primary, Physician 02/28/24 Farrukh Gaspar MD [address] [address] Physician live truck technician 02/28/[address] [facility] [place] [address] Air Traffic Coordinator Dietitian 03/06/24 Tara Martin, [facility] Lead Bar Machine Operator 04/11/24 Farrukh Gaspar MD [address] [address] Assigned OBGYN Provider 04/13/24 Padmini Calderon DO [address] [address] Physician live truck technician 04/22/24 Padmini Calderon DO [address] [address] Assigned OBGYN Provider 07/14/24 documented as of this encounter
--- OUTSIDE RECORDS SUMMARY | 2024-08-29 10:54 | XMS_ITS | Encounter Summary ---
Author Organization [place] Address [address] [place] [address] Care Team Providers Care Rfid Developer Name Role Phone No Ref-Primary, Physician Unavailable [phone] Farrukh Gaspar MD Unavailable Kim Doll RD Unavailable Unavailab Tara Barbosa Unavailable [phone] Farrukh Gaspar MD Unavailable [phone] Padmini Calderon DO Unavailable Padmini Calderon DO Unavailable [phone] Lakesha Padron APRN [facility] Primary Care Provider [phone] Encounter Details Date Type Department Care Team (Late st Contact Info) Description 07/23/2024 [facility] Medical Advice [address] [address] Jus Peter, MA Social History [...] on file 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 Author Create an action plan to increase financial stability Care Plan Patient expresses financial resource strain No Patt Gautam, [facility] Note: Barriers: Lack of housing Strengths: Engaged in care coordination Patient expressed understanding of goal: YES Action steps to achieve this goal: 1. I will review the resources provided by youth career specialist 2. I will I will contact my care team with questions, concerns, or support needs. 3. I will use the clinic as a resource, and I understand I can contact my clinic with / after hours services available. Public Interviewer will remain available as needed. documented as of this encounter Visit Diagnoses Not on filedocumented in this encounter Additional Health Concerns Active Problems Noted Date Diagnosed Date Patient expresses financial resource strain 03/23 documented as of this encounter Care Teams Rfid Developer Relationship Specialty Start Date End Date Lakesha Padron APRN [facility] [address] [place] [address] PCP - General implementation consultant 07/21/24 No Ref-Primary, Physician 02/28/24 Farrukh Gasapr MD [address], [address] [address] Physician implementation consultant 02/28/[address] [place] [address] Crewman Armoured Personnel Carrier M113 Dietitian 03/06/24 Tara Martin, [facility] Lead Public Interviewer 04/11/24 Farrukh Gaspar MD [address], [address] [address] Assigned OBGYN Provider 04/13/24 Padmini Calderon DO [address] [address] Physician implementation consultant 04/22/24 Padmini Calderon DO [address] [address] Assigned OBGYN Provider 07/14/24 documented as of this encounter
--- OUTSIDE RECORDS SUMMARY | 2024-08-29 10:54 | XMS_ITS | Encounter Summary ---
Author Organization [place] Address [facility] [place] [address] Care Team Providers Care Steno Pool Supervisor Name Role Phone No Ref-Primary, Physician Unavailable Farrukh Gaspar MD Unavailable Kim Doll RD Unavailable Unavailab Tara Barbosa [facility] Unavailable [phone] Farrukh Gaspar MD Unavailable Padmini Calderon DO Unavailable Padmini Calderon DO Unavailable Esther Laurent APRN [facility] Primary Care Provider Reason for Referral * Diagnostic Imaging Ultrasound (Routine) - Pending Review Specialty Diagnoses / Procedures Referred By Contyasmany t Referred To Contact Radiology. Diagnoses with type 2 diabetes mellitus in second trimester Procedures [facility] BPP Single Dacia Alvarez MD [address] [facility] [address] [place] [address] Phone: tel: fax: Referral ID Status Reason Start Date Expiration Date V isits Requested Visits Authorized [id number] Pending Review 06/25/2024 06/25/2025 1 1 Reason for Visit * Diagnostic Imaging Ultrasound (Routine) - Pending Review Specialty Diagnoses / Procedures Referred By Contac t Referred To Contact Radiology. Diagnoses with type 2 diabetes mellitus in second trimester Procedures MFM BPP Single Dacia Alvarez MD [address] [place] [address] Phone: tel: fax: Referral ID Status Reason Start Date Expiration Date V isits Requested Visits Authorized [id number] Pending Review 06/25/2024 06/25/2025 1 1 Encounter Details Date Type Department Care Team (Latest Contact Info) Description 07/24/2024 3:00 PM CDT - 07/24/2024 11:59 PM CDT Hospital Encounter [facility] [address] [address] aDcia Alvarez MD [address] [place] [address] with type 2 diabetes mellitus [...] on file 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 I will review the resources provided by pet care worker 2. I will I will contact my care team with questions, concerns, or support needs. 3. I will use the clinic as a resource, and I understand I can contact my clinic with 24/7 after hours services available. Lipstick Molder will remain available as needed. documented as of this encounter Procedures Procedure Name Priority Date/Time Associated Diagnosis Comments MFM BPP SINGLE Routine 07/24/2024 3:43 PM CDT with type 2 diabetes mellitus in second trimester documented in this encounter Results * [facility] BPP Single (07/24/2024 3:43 PM CDT) Anatomical Region Laterality Modality Ultrasound 07/24/2024 3:22 PM CDT Impressions 07/24/2024 4:17 PM CDT IMPRESSION ----- 1. Mcmahan at 33w 1d gestational age. 2. The amniotic fluid volume appeared normal. 3. The BPP was reassuring. Narrative 07/24/2024 4:17 PM CDT ?BPP ----- Pat. Name: ROLA MCKEON ? Study Date: ??07/24/2024 3:22pm Pat. NO: ??[id number] ?Referring ??: ESTHER LAURENT Site: ? Land Title Examiner: Nathalie Harman RDMS : ??1990 ?Age: ?? 34 ----- INDICATION ----- Type 2 Diabetes METHOD ----- Transabdominal ultrasound examination. View: Sufficient ----- Mcmahan . Number of fetuses: 1 DATING ----- ? Date ?Details ?Gest. age ?CARLOS LMP ?11/28/2023 ? 34 w + 1 d ? 09/03/2024 Previous U/S ?01/25/2024 ?GA, GA 7 w + 2 d ? 33 w + 1 d ? 09/10/2024 Assigned dating ?based on ultrasound (GA), selected on 07/21/2024 ?33 w + 1 d ? 09/10/2024 GENERAL EVALUATION ----- Cardiac activity present. FHR 140 bpm. movements: visualized. Presentation: cephalic Placenta: No Previa, > 2 cm from internal os, Anterior Umbilical cord: previously studied AMNIOTIC FLUID ASSESSMENT ----- Amount of AF: normal MVP 7.6 cm BIOPHYSICAL PROFILE ----- 2: breathing movements 2: Gross body movements 2: tone 2: Amniotic fluid volume 8/8 Biophysical profile score Interpretation: normal RECOMMENDATION ----- Thank-you for referring your patient for surveillance. Continue twice weekly surveillance as previously in addition to serial evaluation of growth due to diabetes in Return to primary provider for continued care. If you have questions regarding today's evaluation or if we can be of further service, please contact the [facility]. anomalies may be present but not detected Procedure Note Dacia Alvarez MD - 07/24/2024 BPP ----- Pat. Name: ROLA MCKEON Study Date: 07/24/2024 3:22pm Pat. NO: [id number] Referring MD: ESTHER LAURENT Site: Land Title Examiner: Nathalie Harman RDMS : 1990 Age: 34 ----- INDICATION ----- Type 2 Diabetes METHOD ----- Transabdominal ultrasound examination. View: Sufficient ----- Mcmahan . Number of fetuses: 1 DATING ----- DateDetailsGest. age CARLOS LMP w + 1 d 09/03/2024 Previous U/S 01/25/2024 GA, GA7 w + 2 d33 w + 1 d 09/10/2024 Assigned dating based on ultrasound (GA), selected on07/21/2024 33w + 1 d 09/10/2024 GENERAL EVALUATION ----- Cardiac activity present. FHR 140 bpm. movements: visualized.Presentation: cephalic Placenta: No Previa, > 2 cm from internal os, Anterior Umbilical cord: previously studied AMNIOTIC FLUID ASSESSMENT ----- Amount of AF: normal MVP 7.6 cm BIOPHYSICAL PROFILE ----- 2: breathing movements 2: Gross body movements 2: tone 2: Amniotic fluid volume 8/8 Biophysical profile score Interpretation: normal RECOMMENDATION ----- Thank-you for referring your patient for surveillance. Continue twice weekly surveillance as previously in addition toserial evaluation of growth due to diabetes in Return to primary provider for continued care. If you have questions regarding today's evaluation or if we can be offurther service, please contact the [facility]. anomalies may be present but not detected IMPRESSION ----- 1. Mcmahan at 33w 1d gestational age. 2. The amniotic fluid volume appeared normal. 3. The BPP was reassuring. us Dacia Alvarez MD [facility] ORDERABLES Edited Re sult - Final documented in this encounter Visit Diagnoses Diagnosis with type 2 diabetes mellitus in second trimester documented in this encounter Additional Health Concerns Active Problems Noted Date Diagnosed Date Patient expresses financial resource strain 03/23 documented as of this encounter Care Teams Steno Pool Supervisor Relationship Specialty Start Date End Date Esther Laurent APRN [facility] [address] [place] [address] PCP - General director of recruitment 07/21/24 No Ref-Primary, Physician 02/28/24 Farrukh Gaspar MD [address], [address] [address] Physician director of recruitment 02/28/[address] [place] [address] Wood Room Hand Dietitian 03/06/24 Tara Martin, [facility] Lead Lipstick Molder 04/11/24 Farrukh Gaspar MD [address], [address] [address] Assigned OBGYN Provider 04/13/24 Padmini Calderon DO [address] [address] Physician director of recruitment 04/22/24 Padmini Calderon DO [address] [address] Assigned OBGYN Provider 07/14/24 documented as of this encounter
--- OUTSIDE RECORDS SUMMARY | 2024-08-29 10:54 | XMS_ITS | Encounter Summary ---
Author Organization [place] Address [facility] [place] [address] Care Team Providers Care Stitching Department Supervisor Name Role Phone No Ref-Primary, Physician Unavailable [phone] Farrukh Gaspar MD Unavailable Kim Doll RD Unavailable Unavailab Tara Barbosa [facility] Unavailable Farrukh Gaspar MD Unavailable [phone] Padmini Calderon DO Unavailable Padmini Calderon DO Unavailable Esther Laurent APRN [facility] Primary Care Provider Reason for Referral * Diagnostic Imaging Ultrasound (Routine) - Pending Review Specialty Diagnoses / Procedures Referred By Contyasmany t Referred To Contact Radiology. Diagnoses with type 2 diabetes mellitus in second trimester Procedures [facility] BPP Single Dacia Alvarez MD [address] [facility] [address] [place] [address] Phone: tel: fax: Referral ID Status Reason Start Date Expiration Date V isits Requested Visits Authorized [id number] Pending Review 06/25/2024 06/25/2025 1 1 Reason for Visit * Diagnostic Imaging Ultrasound (Routine) - Pending Review Specialty Diagnoses / Procedures Referred By Contac t Referred To Contact Radiology. Diagnoses with type 2 diabetes mellitus in second trimester Procedures MFM BPP Single Dacia Alvarez MD [address] [place] [address] Phone: tel: fax: Referral ID Status Reason Start Date Expiration Date V isits Requested Visits Authorized [id number] Pending Review 06/25/2024 06/25/2025 1 1 Encounter Details Date Type Department Care Team (Latest Contact Info) Description 07/21/2024 3:30 PM CDT - 07/21/2024 7:45 PM CDT Hospital Encounter [facility] [address] [address] Dacia Alvarez MD [address] [place] [address] with type 2 diabetes mellitus [...] on file 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 14 capsule 07/19/2024 07/26/2024 aspirin 81 MG EC tablet Take 81 [...] expresses financial resource strain No Patt Gautam, [facility] Note: Barriers: Lack of housing Strengths: Engaged in care coordination Patient expressed understanding of goal: YES Action steps to achieve this goal: 1. I will review the resources provided by child care group leader 2. I will I will contact my care team with questions, concerns, or support needs. 3. I will use the clinic as a resource, and I understand I can contact my clinic with 24/7 after hours services available. Call Center Recruiter will remain available as needed. documented as of this encounter Procedures Procedure Name Priority Date/Time Associated Diagnosis Comments ABDULAZIZ BPP SINGLE Routine 07/21/2024 3:47 PM CDT with type 2 diabetes mellitus in second trimester documented in this encounter Results * [facility] BPP Single (07/21/2024 3:47 PM CDT) Anatomical Region Laterality Modality Ultrasound 07/21/2024 3:35 PM CDT Impressions 07/21/2024 4:22 PM CDT IMPRESSION ----- 1. Mcmahan at 32w 5d gestational age. 2. The amniotic fluid volume appeared normal. 3. The BPP was reassuring. Narrative 07/21/2024 4:22 PM CDT ?BPP ----- Pat. Name: ROLA MCKEON ? Study Date: ??07/21/2024 3:35pm Pat. NO: ??[id number] ?Referring ??: ESTHER LAURENT Site: ? Network Director: Noelle Jain RDMS : ??1990 ?Age: ?? 34 ----- INDICATION ----- Type 2 Diabetes METHOD ----- Transabdominal ultrasound examination. View: Sufficient ----- Mcmahan . Number of fetuses: 1 DATING ----- ? Date ?Details ?Gest. age ?CARLOS LMP ?11/28/2023 ? 33 w + 5 d ? 09/03/2024 Previous U/S ?01/25/2024 ?GA, GA 7 w + 2 d ? 32 w + 5 d ? 09/10/2024 Assigned dating ?based on ultrasound (GA), selected on 07/21/2024 ?32 w + 5 d ? 09/10/2024 GENERAL EVALUATION ----- Cardiac activity present. FHR 155 bpm. movements: visualized. Presentation: cephalic Placenta: No Previa, > 2 cm from internal os, Anterior Umbilical cord: previously studied AMNIOTIC FLUID ASSESSMENT ----- Amount of AF: normal MVP 8.9 cm. JOHN 19.8 cm. Q1 8.6 cm, Q2 8.6 cm, Q3 0.8 cm, Q4 1.7 cm BIOPHYSICAL PROFILE ----- 2: breathing movements [...] detected Procedure Note Dacia Alvarez MD - 07/21/2024 BPP ----- Pat. Name: VERITO, ROLA Study Date: 07/21/2024 3:35pm Pat. NO: [id number] Referring MD: ESTHER LAURENT Site: Network Director: Noelle Jain RDMS : 1990 Age: 34 ----- INDICATION ----- Type 2 Diabetes METHOD ----- Transabdominal ultrasound examination. View: Sufficient ----- Mcmahan . Number of fetuses: 1 DATING ----- DateDetailsGest. age CARLOS LMP w + 5 d 09/03/2024 Previous U/S 01/25/2024 GA, GA7 w + 2 d32 w + 5 d 09/10/2024 Assigned dating based on ultrasound (GA), selected on07/21/2024 32w + 5 d 09/10/2024 GENERAL EVALUATION ----- Cardiac activity present. FHR 155 bpm. movements: visualized.Presentation: cephalic Placenta: No Previa, > 2 cm from internal os, Anterior Umbilical cord: previously studied AMNIOTIC FLUID ASSESSMENT ----- Amount of AF: normal MVP 8.9 cm. JOHN 19.8 cm. Q1 8.6 cm, Q2 8.6 cm, Q3 0.8 cm, Q4 1.7 cm BIOPHYSICAL PROFILE ----- 2: breathing movements 2: Gross body movements 2: tone 2: Amniotic fluid volume 05/29 Biophysical profile score Interpretation: normal RECOMMENDATION ----- Thank-you for referring your patient for surveillance. We discussed the results of the ultrasound with the patient. Continue twice weekly surveillance and serial growth US every 4weeks due to pregestational diabetes. Return to primary provider for continued care. If you have questions regarding today's evaluation or if [facility] can [facility], please contact the [facility]. anomalies may be present but not detected IMPRESSION ----- 1. Mcmahan at 32w 5d gestational age. 2. The amniotic fluid volume appeared normal. 3. The BPP was reassuring. us [facility] ORDER[facility] Edited Re sult - Final documented in this encounter Visit Diagnoses Diagnosis with type 2 diabetes mellitus in second trimester documented in this encounter Additional Health Concerns Active Problems Noted Date Diagnosed Date Patient expresses financial resource strain 03/23 documented as of this encounter Care Teams Stitching Department Supervisor Relationship Specialty Start Date End Date Esther Laurent APRN CN [address] [place], [place] [id number] PCP - General treatment plant operator 07/21/24 No Ref-Primary, Physician 02/28/24 Farrukh Gaspar MD [address], [address] [address] Physician treatment plant operator 02/28/24 Kim Doll, [place] [address] [facility] [place] [address] Sales Correspondence Clerk Dietitian 03/06/24 Tara Martin, [facility] Lead Call Center Recruiter 04/11/24 Farrukh Gaspar MD [address], [address] [address] Assigned OBGYN Provider 04/13/24 Padmini Calderon DO [address] [address] Physician treatment plant operator 04/22/24 Padmini Calderon DO [address] [address] Assigned OBGYN Provider 07/14/24 documented as of this encounter
--- OUTSIDE RECORDS SUMMARY | 2024-08-29 10:54 | XMS_ITS | Encounter Summary ---
Author Organization [facility] Address [address] [place] [address] Care Team Providers Care Thread Winder Automatic Name Role Phone No Ref-Primary, Physician Primary Care Provider No Ref-Primary, Physician Unavailable [phone] Farrukh Gaspar MD Unavailable [phone] Unavailable Unavailab Tara Barbosa Unavailable [phone] Farrukh Gaspar MD Unavailable Padmini Calderon DO Unavailable Padmini Calderon DO Unavailable Encounter Details Date Type Department Care Team (Latest Contact Info) Description 07/17/2024 Travel Social History Tobacco Use Types Packs/Day [...] on file 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 Author Create an action plan to increase financial stability Care Plan Patient expresses financial resource strain No Patt Gautam, [facility] Note: Barriers: Lack of housing Strengths: Engaged [...] clinic with 14/05 after hours services available. Hospital Librarian will remain available as needed. documented as of this encounter Visit Diagnoses Not on filedocumented in this encounter Additional Health Concerns Active Problems Noted Date Diagnosed Date Patient expresses financial resource strain 03/23 documented as of this encounter Care Teams Thread Winder Automatic Relationship Specialty Start Date End Date No Ref-Primary, Physician PCP - General 02/28/24 07/20/24 No Ref-Primary, Physician 02/28/24 Farrukh Gaspar MD [address], [address] [address] Physician nursery laborer 02/28/[address] [place] [address] Nozzleman Dietitian 03/06/24 Tara Martin [facility] Lead Hospital Librarian 04/11/24 Farrukh Gaspar MD [address], [address] [address] Assigned OBGYN Provider 04/13/24 Padmini Calderon DO [address] [address] Physician nursery laborer 04/22/24 Padmini Calderon DO [address] [facility] [address] [place], [place] [address] Assigned OBGYN Provider 07/14/24 documented as of this encounter
--- OUTSIDE RECORDS SUMMARY | 2024-08-29 10:54 | XMS_ITS | Encounter Summary ---
Author Organization [facility] Address [address] [place] [address]. [place] [address] Care Team Providers Care Correction Warden Name Role Phone No Ref-Primary, Physician Unavailable [phone] Farrukh Gaspar MD Unavailable Kim Doll RD Unavailable Unavailab Tara Barbosa [facility] Unavailable [phone] Farrukh Gaspar MD Unavailable Padmini Calderon DO Unavailable Padmini Calderon DO Unavailable Lakesha Padron APRN [facility] Primary Care Provider Reason for Visit * Reason Comments Ultrasound BPP: DM2, CHTN - new ly started on meds Encounter Details Date Type Department Care Team (Late st Contact Info) Description 07/21/2024 4:00 PM CDT Office Visit [facility] [address] [place] [address] Dacia Alvarez MD [address] [facility] [address] [place] [address] with type 2 diabetes mellitus [...] on file Legal Sex Female 5:03 AM FENCE ERECTOR Gender Identity Not on file Sexual Orientation Not on file documented as of this encounter Progress Notes * Dacia Alvarez MD - 07/21/2024 4:00 PM CDT The patient was seen for [...] Nursing Notes * Mila Mata RN - 07/21/2024 4:00 PM CDT Patient presents to [facility] for BPP at 32w5d due to DM2, CHTN. Positive movement. Denies LOF, vaginal bleeding or cramping/contractions. States she was started on Labetalol on last week. Checking BP's at home. Complains of [place]AN[place] on and off and some swelling. Encouraged patient to continue checking BP and call OB with increased symptoms. Has OB follow up on . SBAR given to [facility] , see their note in Epic. documented in this encounter Plan of Treatment Not on file documented as of this encounter Goals Goal Patient Goal Type Associated Problems Recent Progress Patient-Stated? Author Create an action plan to increase financial stability Care Plan Patient expresses financial resource strain Patt Young, [facility] Note: Barriers: Lack of housing Strengths: Engaged in care coordination Patient expressed understanding of goal: YES Action steps to achieve this goal: 1. I will review the resources provided by transitional care liaison 2. I will I will contact my care team with questions, concerns, or support needs. 3. I will use the clinic as a resource, and I understand I can contact my clinic with 24/7 after hours services available. Stenographer Print Shop will remain available as needed. documented as of this encounter Visit Diagnoses Diagnosis with type 2 diabetes mellitus in third trimester- Primary documented in this encounter Additional Health Concerns Active Problems Noted Date Diagnosed Date Patient expresses financial resource strain 03/23 documented as of this encounter Care Teams Correction Warden Relationship Specialty Start Date End Date Lakesha Padron APRN [facility] [address] [place] [address] PCP - General senior quality assurance engineer 07/21/24 No Ref-Primary, Physician 02/28/24 Farurkh Gaspar MD [address], [address] [address] Physician senior quality assurance engineer 02/28/[address] [facility] [place] [address] Chute Loader Dietitian 03/06/24 Tara Martin, [facility] Lead Stenographer Print Shop 04/11/24 Farrukh Gaspar MD [address], [address] [address] Assigned OBGYN Provider 04/13/24 Padmini Calderon DO [address] [address] Physician senior quality assurance engineer 04/22/24 Padmini Calderon DO [address] [address] Assigned OBGYN Provider 07/14/24 documented as of this encounter
--- OUTSIDE RECORDS SUMMARY | 2024-08-29 10:55 | XMS_ITS | Encounter Summary ---
Author Organization [facility] Address [address] [place] [address] Care Team Providers Care Executive Wellness Programs Director Name Role Phone No Ref-Primary, Physician Primary Care Provider No Ref-Primary, Physician Unavailable [phone] Farrukh Gaspar MD Unavailable [phone] Unavailable Unavailab Tara Barbosa Unavailable [phone] Farrukh Gaspar MD Unavailable [phone] Padmini Calderon DO Unavailable Miller Garcia MD Unavailable [phone] Encounter Details Date Type Department Care Team (Latest Contact Info) Description 07/10/2024 Travel Social History Tobacco Use Types Packs/Day [...] on file Legal Sex Female 5:03 AM BOTTLE HOP Gender Identity Not on file Sexual Orientation Not on file documented as of this encounter Plan of Treatment Not on file documented as of this encounter Goals Goal Patient Goal Type Associated Problems Recent Progress Patient-Stated? Author Create an action plan to increase financial stability Care Plan Patient expresses financial resource strain No Patt Gautam, [facility] Note: Barriers: Lack of housing Strengths: Engaged in care coordination Patient expressed understanding of goal: YES Action steps to achieve this goal: 1. I will review the resources provided by healthcare translator 2. I will I will contact my care team with questions, concerns, or support needs. 3. I will use the clinic as a resource, and I understand I can contact my clinic with 14/05 after hours services available. Human Resources Operations Manager will remain available as needed. documented as of this encounter Visit Diagnoses Not on filedocumented in this encounter Additional Health Concerns Active Problems Noted Date Diagnosed Date Patient expresses financial resource strain 03/23 documented as of this encounter Care Teams Executive Wellness Programs Director Relationship Specialty Start Date End Date No Ref-Primary, Physician PCP - General 02/28/24 07/20/24 No Ref-Primary, Physician 02/28/24 Farrukh Gaspar MD [address], [address] [address] Physician strategic sourcing consultant 02/28/[address] [place] [address] Balancer Dietitian 03/06/24 Tara Martin, [facility] Lead Human Resources Operations Manager 04/11/24 Farrukh Gaspar MD [address], [address] [address] Assigned OBGYN Provider 04/13/24 Padmini Calderon DO [address] [address] Physician strategic sourcing consultant 04/22/24 Miller Garcia MD [address] [facility] [address] [place] [address] Assigned OBGYN Provider 06/13/24 documented as of this encounter
--- OUTSIDE RECORDS SUMMARY | 2024-08-29 10:55 | XMS_ITS | Encounter Summary ---
Author Organization [facility] Address [address] [place] [address] Care Team Providers Care Radio Script Writer Name Role Phone No Ref-Primary, Physician Primary Care Provider No Ref-Primary, Physician Unavailable [phone] Farrukh Gaspar MD Unavailable [phone] Unavailable Unavailab Tara Barbosa Unavailable Farrukh Gaspar MD Unavailable [phone] Padmnii Calderon DO Unavailable Miller Garcia MD Unavailable [phone] Encounter Details Date Type Department Care Team (Latest Contact Info) Description 06/20/2024 Travel Social History Tobacco Use Types Packs/Day [...] on file Legal Sex Female 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 Author Create an action plan to increase financial stability Care Plan Patient expresses financial resource strain No Patt Gautam, [facility] Note: Barriers: Lack of housing Strengths: Engaged in care coordination Patient expressed understanding of goal: YES Action steps to achieve this goal: 1. I will review the resources provided by care management coordinator 2. I will I will contact my care team with questions, concerns, or support needs. 3. I will use the clinic as a resource, and I understand I can contact my clinic with 14/05 after hours services available. Server Developer will remain available as needed. documented as of this encounter Visit Diagnoses Not on filedocumented in this encounter Additional Health Concerns Active Problems Noted Date Diagnosed Date Patient expresses financial resource strain 03/23 documented as of this encounter Care Teams Radio Script Writer Relationship Specialty Start Date End Date No Ref-Primary, Physician PCP - General 02/28/24 07/20/24 No Ref-Primary, Physician 02/28/24 Farrukh Gaspar MD [address], [address] [address] Physician skin drier 02/28/[address] [place] [address] Accounting Supervisor Dietitian 03/06/24 Tara Martin, [facility] Lead Server Developer 04/11/24 Farrukh Gaspar MD [address], [address] [address] Assigned OBGYN Provider 04/13/24 Padmini Calderon DO [address] [address] Physician skin drier 04/22/24 Miller Garcia MD [address] [facility] [address] [place] [address] Assigned OBGYN Provider 06/13/24 documented as of this encounter
--- OUTSIDE RECORDS SUMMARY | 2024-08-29 10:55 | XMS_ITS | Encounter Summary ---
Author Organization [facility] Address [address] [place] [address] Care Team Providers Care Carpenter Bridge Name Role Phone No Ref-Primary, Physician Primary Care Provider No Ref-Primary, Physician Unavailable [phone] Farrukh Gaspar MD Unavailable Kim Doll RD Unavailable Unavailab Tara BarbosaSW Unavailable Farrukh Gaspar MD Unavailable [phone] Padmini Calderon DO Unavailable Miller Garcia MD Unavailable [phone] Reason for Referral * Consultation (Routine: Next available opening) - Pending Review Specialty Diagnoses / Procedures Referred By Kalyani t Referred To Contact Diagnoses Supervision of high-risk of elderly multigravida Telma Celeste MD [address] [place] [address] Phone: tel: fax: Referral ID Status Reason Start Date Expiration Date V isits Requested Visits Authorized [id number] Pending Review 06/13/2024 06/13/2025 1 1 Question Answer Scheduling Instructions: [facility] will call you to coordinate your care as prescribed by your provider. If you don't hear from a patient representative within 2 business days, please call . Comments Please be aware that coverage of these services is subject to the terms and limitations of your health insurance plan. Call member services at your health plan with any benefit or coverage questions. [facility] will call you to coordinate your care as prescribed by your provider. If you don't hear from a patient representative within 2 business days, please call . Reason for Visit * Reason Comments Care 27 weeks 2 days, no c/o VB, LoF. Having BH contractions. Feeling FM daily. No c/o headaches, swelling,vision changes. Diabetes Last DM follow-up, 0 06/11- has had some insulin changes, now using 50 units of Levemir at HS and 4 units of Novalog before dinner. Patient Request would like t o help deliver the baby- catch the baby. Would like to discuss pain management during labor and discuss induction at 39 weeks due to DM. Encounter Details Date Type Department Care Team (Latest Contact Info) Description 06/13/2024 9:15 AM CDT Office Visit [facility] [place] [address] [place] [address] Padmini Calderon DO [address] 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 Gender Identity Not on file Sexual Orientation Not on file documented as of this encounter Last Filed Vital Signs Vital Sign Reading Time Taken Comments Blood Pressure 128/70 06/13/2024 9:37 AM CDT Pulse - - Temperature - - Respiratory Rate - - Oxygen Saturation - - Inhaled Oxygen Concentration - - Weight 72.2 kg (159 lb 3.2 oz) 06/13/2024 9:37 A M CDT Height - - Body Mass Index 30.08 02/28/2024 10:47 AM CDT documented in this encounter Patient Instructions * Patient Instructions* Padmini Calderon DO - 06/13/2024 9:15 AM CDT Return 2 weeks Return to clinic: every 4 weeks till 28 weeks, then every 2 weeks till 36 weeks, then weekly till delivery Please schedule out a few ob visits at a time so that you can get an appointment as you would like. For tour call [phone], tours on @ 4:30 and 5:30 pm Phone numbers [place]: Day/ night [phone] ask for ob triage Emergency: Call labor and delivery: [phone] What should I call about?? Contraction every 5 minutes for 1 hour 1 minute long (511), bleeding, loss of fluid, headache that doesn't resolve with tylenol, and decreased movement Start kick counts @ 26-28 weeks There is an tabatha for this! It is called count the kicks Keep track of movement and discover your normal baby movement pattern guideline is listed below Please call if you do not feel the baby move! We will have you come in for heart rate monitoring: Perception of at least 10 FMs during 12 hours of normal maternal activity Perception of least 10 FMs over two hours when the mother is at rest and focused on [facility] Address [address] [facility], [place] [address] Dr. Padmini Calderon DO FAUCETS ASSEMBLER [facility] documented in this encounter Progress Notes * Padmini Calderon DO - 06/13/2024 9:15 AM CDT CC: Here for routine visit 34 year old y/o @ 27w2d with Estimated Date of Delivery: Sep 10, 2024 BP 128/70 Wt 72.2 kg (159 lb 3.2 oz) LMP 11/28/2023 BMI 30.08 kg/m?? See OB flowsheet + movement, no contractions, no bleeding, no loss of fluid Discussed monitoring movement 1) concerns: wonders about delivery timing 2) Routine: Blood type Rh pos RI tdap [x] flu [ ] GS [nl] NIPT [nl] AFP [not done] transfer of care Covid v [x] gtt [GDM] 3) Risk factors: A: GDMA2: serial growth, twice weekly bpp @ 32 weeks B: Hx of CS, with first baby : hoping for C: CHTN, Hx PreE - No meds. B/l HELLP wnl, on baby asa: serial growth, twice weekly bpp @ 32 weeks (for A) D: normal echo E: hx of PTD x 2: normal CL, was IOL @ 30 weeks for CHTN with superimposed pre- eclampsia, hx of 36 week breech CS 4) Return: 2 weeks Yumiko documented in this encounter Nursing Notes * Wendie Avila CMA - 06/13/2024 9:15 AM CDT Chief Complaint Patient presents with Care 27 weeks 2 days, no c/o VB, LoF. Having BH contractions. Feeling FM daily. No c/o headaches, swelling,vision changes. Diabetes Last DM follow-up, 06/11- has had some insulin changes, now using 50 units of Levemir at HS and 4 units of Novalog before dinner. Patient Request would like to help deliver the baby- catch the baby. Would like to discuss pain management during labor and discuss induction at 39 weeks due to DM. Initial BP 128/70 Wt 72.2 kg (159 lb 3.2 oz) LMP 11/28/2023 BMI 30.08 kg/m?? Estimated body mass index is 30.08 kg/m?? as calculated from the following: Height as of 02/28/24: 1.549 m (5' 1). Weight as of this encounter: 72.2 kg (159 lb 3.2 oz). BP completed using cuff size: regular Questioned patient about current smoking habits. Pt. has never smoked. The following HM Due: NONE Wendie Avila CMA documented in this encounter Plan of Treatment Scheduled Referrals Name Type Priority Associated Diagnoses Orde r Schedule Burrito Maker Referral Referral Routine: Next available opening Supervision of high-risk of elderly multigravida Expected: 06/13/2024 (Approximate), Expires: 06/13/2025 documented as of this encounter Goals Goal Patient Goal Type Associated Problems Recent Progress Patient-Stated? Author Create an action plan to increase financial stability Care Plan Patient expresses financial resource strain No Patt Gautam, REFINERY OPERATOR Note: Barriers: Lack of housing Strengths: Engaged in care coordination Patient expressed understanding of goal: YES Action steps to achieve this goal: 1. I will review the resources provided by transitions rn care coordinator 2. I will I will contact my care team with questions, concerns, or support needs. 3. I will use the clinic as a resource, and I understand I can contact my clinic with 24/7 after hours services available. Software Configuration Manager will remain available as needed. documented as of this encounter Visit Diagnoses Diagnosis Supervision of high-risk of elderly multigravida- Primary documented in this encounter Additional Health Concerns Active Problems Noted Date Diagnosed Date Patient expresses financial resource strain 03/23 documented as of this encounter Care Teams Carpenter Bridge Relationship Specialty Start Date End Date No Ref-Primary, Physician PCP - General 02/28/24 07/20/24 No Ref-Primary, Physician 02/28/24 Farrukh Gaspar MD [address] [address] Physician general teller 02/28/[address] [facility] MARIEL MICHEL [address] Nurse Staff Community Health Dietitian 03/06/24 Dom Martinhel, [facility] Lead Software Configuration Manager 04/11/24 Farrukh Gaspar MD [address] [address] Assigned OBGYN Provider 04/13/24 Padmini Calderon DO [address] [address] Physician general teller 04/22/24 Miller Garcia MD [address] [address] Assigned OBGYN Provider 06/13/24 documented as of this encounter
--- OUTSIDE RECORDS SUMMARY | 2024-08-29 10:55 | XMS_ITS | Encounter Summary ---
Author Organization [place] Address [facility] [address] Care Team Providers Care Paper Maker Name Role Phone No Ref-Primary, Physician Primary Care Provider No Ref-Primary, Physician Unavailable [phone] Farrukh Gaspar MD Unavailable Kim Doll RD Unavailable Unavailab Tara BarbosaSW Unavailable Farrukh Gaspar MD Unavailable Padmini Calderon DO Unavailable Miller Garcia MD Unavailable [phone] Reason for Referral * Diagnostic Imaging Ultrasound (Routine) - Pending Review Specialty Diagnoses / Procedures Referred By Contac t Referred To Contact Radiology. Diagnoses with type 2 diabetes mellitus in second trimester Polyhydramnios affecting Procedures [facility] BPP Single Alyce Whitlock MD [address] [facility] [address] [place] [address] Phone: tel: fax: Referral ID Status Reason Start Date Expiration Date V isits Requested Visits Authorized [id number] Pending Review 06/20/2024 06/20/2025 1 1 Reason for Visit * Diagnostic Imaging Ultrasound (Routine) - Pending Review Specialty Diagnoses / Procedures Referred By Kalyani t Referred To Contact Radiology. Diagnoses with type 2 diabetes mellitus in second trimester Polyhydramnios affecting Procedures [facility] BPP Single Alyce Whitlock MD [address] [place] [address] Phone: tel: fax: Referral ID Status Reason Start Date Expiration Date V isits Requested Visits Authorized [id number] Pending Review 06/20/2024 06/20/2025 1 1 Encounter Details Date Type Department Care Team (Latest Contact Info) Description 07/04/2024 3:22 PM CDT - 07/04/2024 11:59 PM CDT Hospital Encounter [facility] [address] [place] [id number] Jana Osei MD [address] [place] [address] with type 2 diabetes mellitus in second trimester; Polyhydramnios affecting Discharge Disposition: Home or Self Care Social [...] on file Legal Sex Female 5:03 AM A AND P TECHNICIAN Gender Identity Not on file Sexual [...] each daily as needed 1 each 05/14/2024 amoxicillin (AMOXIL) 500 MG capsule Take 500 mg by mouth. 07/02/2024 4 albuterol (PROVENTIL HFA) 108 (90 BASE) MCG/ACT [...] units daily 30 mL 2 04/16/2024 4 loratadine (CLARITIN) 10 MG tablet Take [...] mouth daily 60 capsule 2 2024 4 Higxyywj-Irr-Za-FA ( 1 + IRON OR) 4 Vit-Fe Fumarate-FA ( MULTIVITAMIN WITH IRON) 28-0.8 MG TABS 06/19/2024 4 documented as of this encounter Plan of Treatment Not on file documented as of this encounter Goals Goal Patient Goal Type Associated Problems Recent Progress Patient-Stated? Author Create an action plan to increase financial stability Care Plan Patient expresses financial resource strain Patt Young, [facility] Note: Barriers: Lack of housing Strengths: Engaged in care coordination Patient expressed understanding of goal: YES Action steps to achieve this goal: 1. I will review the resources provided by child adolescent care 2. I will I will contact my care team with questions, concerns, or support needs. 3. I will use the clinic as a resource, and I understand I can contact my clinic with 24/7 after hours services available. Outside Upholsterer will remain available as needed. documented as of this encounter Procedures Procedure Name Priority Date/Time Associated Diagnosis Comments [facility] Routine 07/04/2024 4:12 PM CDT with type 2 diabetes mellitus in second trimester Polyhydramnios affecting documented in this encounter Results * [facility] BPP Single (07/04/2024 4:12 PM CDT) Anatomical Region Laterality Modality Ultrasound 07/04/2024 3:22 PM CDT Impressions 07/04/2024 3:54 PM CDT IMPRESSION ----- 1. Mcmahan at 30w 2d gestational age. 2. The amniotic fluid volume appeared normal. 3. The BPP was reassuring. Narrative 07/04/2024 3:54 PM CDT ?BPP ----- Pat. Name: ROLA MCKEON ? Study Date: ??07/04/2024 3:22pm Pat. NO: ??[id number] ?Referring ??MD: ESTHER LAURENT Site: ? Real Estate Officer: Nathalie Harman RDMS : ??1990 ?Age: ?? 34 ----- INDICATION ----- Type 2 Diabetes Polyhydramnios METHOD ----- Transabdominal ultrasound examination. View: Sufficient ----- Mcmahan . Number of fetuses: 1 DATING ----- ? Date ?Details ?Gest. age ?CARLOS LMP ?11/28/2023 ? 31 w + 2 d ? 09/03/2024 Previous U/S ?01/25/2024 ?GA, GA 7 w + 2 d ? 30 w + 2 d ? 09/10/2024 Assigned dating ?based on ultrasound (GA), selected on 06/20/2024 ?30 w + 2 d ? 09/10/2024 GENERAL EVALUATION ----- Cardiac activity present. FHR 146 bpm. movements: visualized. Presentation: cephalic Placenta: No Previa, > 2 cm from internal os, Anterior Umbilical cord: previously studied AMNIOTIC FLUID ASSESSMENT ----- Amount of AF: normal MVP 9.3 cm. JOHN 23.8 cm. Q1 8.7 cm, Q2 4.2 cm, Q3 5.8 cm, Q4 4.8 cm BIOPHYSICAL PROFILE ----- 2: breathing movements 2: Gross body movements 2: tone 2: Amniotic fluid volume 8/8 Biophysical profile score Interpretation: normal RECOMMENDATION ----- Thank-you for referring your patient for surveillance We discussed the results of the ultrasound with the patient. Continue weekly surveillance as previously recommended until twice weekly at 32 weeks. Return to primary provider for continued care. If you have questions regarding today's evaluation or if we can be of further service, please contact the [facility]. anomalies may be present but not detected Procedure Note Jana Osei MD - 07/04/2024 BPP ----- Pat. Name: ROLA MCKEON Study Date: 07/04/2024 3:22pm Pat. NO: [id number] Referring MD: ESTHER LAURENT Site: Real Estate Officer: Nathalie Harman RDMS : 1990 Age: 34 ----- INDICATION ----- Type 2 Diabetes Polyhydramnios METHOD ----- Transabdominal ultrasound examination. View: Sufficient ----- Mcmahan . Number of fetuses: 1 DATING ----- DateDetailsGest. age CARLOS LMP w + 2 d 09/03/2024 Previous U/S 01/25/2024 GA, GA7 w + 2 d30 w + 2 d 09/10/2024 Assigned dating based on ultrasound (GA), selected 06/20/2024 30w + 2 d 09/10/2024 GENERAL EVALUATION ----- Cardiac activity present. FHR 146 bpm. movements: visualized.Presentation: cephalic Placenta: No Previa, > 2 cm from internal os, Anterior Umbilical cord: previously studied AMNIOTIC FLUID ASSESSMENT ----- Amount of AF: normal MVP 9.3 cm. JOHN 23.8 cm. Q1 8.7 cm, Q2 4.2 cm, Q3 5.8 cm, Q4 4.8 cm BIOPHYSICAL PROFILE ----- 2: breathing movements 2: Gross body movements 2: tone 2: Amniotic fluid volume 8/8 Biophysical profile score Interpretation: normal RECOMMENDATION ----- Thank-you for referring your patient for surveillance We discussed the results of the ultrasound with the patient. Continue weekly surveillance as previously recommended untiltwice weekly at 32 weeks. Return to primary provider for continued care. If you have questions regarding today's evaluation or if we can be offurther service, please contact the [facility]. anomalies may be present but not detected IMPRESSION ----- 1. Mcmahan at 30w 2d gestational age. 2. The amniotic fluid volume appeared normal. 3. The BPP was reassuring. us Alyce Whitlock MD [facility] US ORDERABLES Edited Res ult - Final documented in this encounter Visit Diagnoses Diagnosis with type 2 diabetes mellitus in second trimester Polyhydramnios affecting documented in this encounter Additional Health Concerns Active Problems Noted Date Diagnosed Date Patient expresses financial resource strain 03/23 documented as of this encounter Care Teams Paper Maker Relationship Specialty Start Date End Date No Ref-Primary, Physician PCP - General 02/28/24 07/20/24 No Ref-Primary, Physician 02/28/24 Farrukh Gaspar MD [address] [address] Physician cook syrup maker 02/28/[address] [place] [address] Vending Service Technician Dietitian 03/06/24 Tara Martin, [facility] Lead Outside Upholsterer 04/11/24 Farrukh Gaspar MD [address] [address] Assigned OBGYN Provider 04/13/24 Padmini Calderon DO [address] [address] Physician cook syrup maker 04/22/24 Miller Garcia MD [address] [address] Assigned OBGYN Provider 06/13/24 documented as of this encounter
--- OUTSIDE RECORDS SUMMARY | 2024-08-29 10:55 | XMS_ITS | Encounter Summary ---
Author Organization [place] Address [address] [place] [address]. [place] [address] Care Team Providers Care Aircraft Instrument Engineer Name Role Phone No Ref-Primary, Physician Primary Care Provider No Ref-Primary, Physician Unavailable [phone] Farrukh Gaspar MD Unavailable Kim Doll RD Unavailable Unavailab Tara Barbosa Unavailable [phone] Farrukh Gaspar MD Unavailable Padmini Calderon DO Unavailable Miller Garcia MD Unavailable [phone] Padmini Calderon DO Unavailable [phone] Lakesha Padron APRN [facility] Primary Care Provider [phone] Encounter Details Date Type Department Care Team (Late st Contact Info) Description 07/09/2024 [facility] Medical Advice [address] [place] [address] Jus Peter, MA Social History Tobacco [...] on file Legal Sex Female 5:03 AM SIGNAL 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 Author Create an action plan to increase financial stability Care Plan Patient expresses financial resource strain No Ptat Gautam [facility] Note: Barriers: Lack of housing Strengths: Engaged in care coordination Patient expressed understanding of goal: YES Action steps to achieve this goal: 1. I will review the resources provided by toddler caregiver 2. I will I will contact my care team with questions, concerns, or support needs. 3. I will use the clinic as a resource, and I understand I can contact my clinic with 24/7 after hours services available. Sinter Machine Operator will remain available as needed. documented as of this encounter Visit Diagnoses Not on filedocumented in this encounter Additional Health Concerns Active Problems Noted Date Diagnosed Date Patient expresses financial resource strain 03/23 documented as of this encounter Care Teams Aircraft Instrument Engineer Relationship Specialty Start Date End Date No Ref-Primary, Physician PCP - General 02/28/24 07/20/24 Lakesha Padron APRN CNM [address] [facility] [place] [address] PCP - General manager personnel selection 07/21/24 No Ref-Primary, Physician 02/28/24 Farrukh Gaspar MD [address], [address] [address] Physician manager personnel selection 02/28/[address] [place] [address] Regional Refrigerated Cdl Truck Driver Dietitian 03/06/24 Tara Martin [facility] Lead Sinter Machine Operator 04/11/24 Farrukh Gaspar MD [address] [address] Assigned OBGYN Provider 04/13/24 Padmini Calderon DO [address] [address] Physician manager personnel selection 04/22/24 Miller Garcia MD [address] [address] Assigned OBGYN Provider 06/13/24 Padmini Calderon DO [address] [address] Assigned OBGYN Provider 07/14/24 documented as of this encounter
--- OUTSIDE RECORDS SUMMARY | 2024-08-29 10:55 | XMS_ITS | Encounter Summary ---
Author Organization [place] Address [address] [place] [address]. [place] [address] Care Team Providers Care Grooving Lathe Tender Name Role Phone No Ref-Primary, Physician Primary Care Provider No Ref-Primary, Physician Unavailable [phone] Farrukh Gaspar MD Unavailable Kim Doll RD Unavailable Unavailab Tara Barbosa Unavailable Farrukh Gaspar MD Unavailable Padmini Calderon DO Unavailable Miller Garcia MD Unavailable [phone] Padmini Calderon DO Unavailable [phone] Lakesha Padron APRN [facility] Primary Care Provider [phone] Encounter Details Date Type Department Care Team (Late st Contact Info) Description 06/25/2024 [facility] Medical Advice [address] [place] [address] Jus Peter, MA Social History [...] on file 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 Author Create an action plan to increase financial stability Care Plan Patient expresses financial resource strain No Patt Gautam [facility] Note: Barriers: Lack of housing Strengths: Engaged in care coordination Patient expressed understanding of goal: YES Action steps to achieve this goal: 1. I will review the resources provided by health care administrator 2. I will I will contact my care team with questions, concerns, or support needs. 3. I will use the clinic as a resource, and I understand I can contact my clinic with 24/7 after hours services available. Scene Painter will remain available as needed. documented as of this encounter Visit Diagnoses Not on filedocumented in this encounter Additional Health Concerns Active Problems Noted Date Diagnosed Date Patient expresses financial resource strain 03/23 documented as of this encounter Care Teams Grooving Lathe Tender Relationship Specialty Start Date End Date No Ref-Primary, Physician PCP - General 02/28/24 07/20/24 Lakesha Padron APRN CNM [address] [facility] [place] [address] PCP - General abstracter 07/21/24 No Ref-Primary, Physician 02/28/24 Farrukh Gaspar MD [address], [address] [address] Physician abstracter 02/28/[address] [facility] [address] Desk Director Dietitian 03/06/24 Tara Martin [facility] Lead Scene Painter 04/11/24 Farrukh Gaspar MD [address] [address] Assigned OBGYN Provider 04/13/24 Padmini Calderon DO [address] [address] Physician abstracter 04/22/24 Miller Garcia MD [address] [address] Assigned OBGYN Provider 06/13/24 Padmini Calderon DO [address] [address] Assigned OBGYN Provider 07/14/24 documented as of this encounter
--- OUTSIDE RECORDS SUMMARY | 2024-08-29 10:55 | XMS_ITS | Encounter Summary ---
Author Organization [place] Address [address] [place] [address] Care Team Providers Care Systems Architecture Analyst Name Role Phone No Ref-Primary, Physician Primary Care Provider No Ref-Primary, Physician Unavailable [phone] Farrukh Gaspar MD Unavailable Kim Doll RD Unavailable Unavailab Tara Barbosa Unavailable Farrukh Gaspar MD Unavailable Padmini Calderon DO Unavailable Miller Garcia MD Unavailable [phone] Encounter Details Date Type Department Care Team (Latest Contact Info) Description 06/25/2024 Travel Social History Tobacco Use Types Packs/Day [...] on file 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 Author Create an action plan to increase financial stability Care Plan Patient expresses financial resource strain No Patt Gautam, [facility] Note: Barriers: Lack of housing Strengths: Engaged in care coordination Patient expressed understanding of goal: YES Action steps to achieve this goal: 1. I will review the resources provided by senior caregiver 2. I will I will contact my care team with questions, concerns, or support needs. 3. I will use the clinic as a resource, and I understand I can contact my clinic with 14/05 after hours services available. Handle Attacher will remain available as needed. documented as of this encounter Visit Diagnoses Not on filedocumented in this encounter Additional Health Concerns Active Problems Noted Date Diagnosed Date Patient expresses financial resource strain 03/23 documented as of this encounter Care Teams Systems Architecture Analyst Relationship Specialty Start Date End Date No Ref-Primary, Physician PCP - General 02/28/24 07/20/24 No Ref-Primary, Physician 02/28/24 Farrukh Gaspar MD [address], [address] [address] Physician reed worker 02/28/[address] [place] [address] Manganese Breaker Dietitian 03/06/24 Tara Martin, [facility] Lead Handle Attacher 04/11/24 Farrukh Gaspar MD [address], [address] [address] Assigned OBGYN Provider 04/13/24 Padmini Calderon DO [address] [address] Physician reed worker 04/22/24 Miller Garcia MD [address] [facility] [address] [place] [address] Assigned OBGYN Provider 06/13/24 documented as of this encounter
--- OUTSIDE RECORDS SUMMARY | 2024-08-29 10:55 | XMS_ITS | Encounter Summary ---
Author Organization [place] Address [address] [place] [address]. [place] [address] Care Team Providers Care Machine Accountant Name Role Phone No Ref-Primary, Physician Primary Care Provider No Ref-Primary, Physician Unavailable Farrukh Gaspar MD Unavailable [phone] Unavailable Unavailab Tara Barbosa Unavailable Farrukh Gaspar MD Unavailable Padmini Calderon DO Unavailable Miller Garcia MD Unavailable [phone] Reason for Visit * Reason Comments Ultrasound BPP: DM2 - poor cont rol, CHTN Encounter Details Date Type Department Care Team (Late st Contact Info) Description 07/10/2024 3:30 PM CDT Office Visit [facility] [address] [place] [address] Dacia Alvarez MD [address] [place] [address] [address] [place] [address] with type 2 diabetes mellitus [...] on file 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 Positive movement. Denies LOF, vaginal bleeding or cramping/contractions. SBAR given to M , see their note in Epic. documented in this encounter Plan of Treatment Not on file documented as of this encounter Goals Goal Patient Goal Type Associated Problems Recent Progress Patient-Stated? Author Create an action plan to increase financial stability Care Plan Patient expresses financial resource strain No Patt Gautam, [employer] Note: Barriers: Lack of housing Strengths: Engaged in care coordination Patient expressed understanding of goal: YES Action steps to achieve this goal: 1. I will review the resources provided by direct care counselor 2. I will I will contact my care team with questions, concerns, or support needs. 3. I will use the clinic as a resource, and I understand I can contact my clinic with 14/05 after hours services available. Pin Machine Tender will remain available as needed. documented as of this encounter Visit Diagnoses Diagnosis with type 2 diabetes mellitus in third trimester- Primary documented in this encounter Additional Health Concerns Active Problems Noted Date Diagnosed Date Patient expresses financial resource strain 03/23 documented as of this encounter Care Teams Machine Accountant Relationship Specialty Start Date End Date No Ref-Primary, Physician PCP - General 02/28/24 07/20/24 No Ref-Primary, Physician 02/28/24 Farrukh Gapsar MD [address], [address] [address] Physician police clerk 02/28/[address] [facility] [place] [address] Abrasive Band Winder Dietitian 03/06/24 Tara Martin, [facility] Lead Pin Machine Tender 04/11/24 Farrukh Gaspar MD [address], [address] [address] Assigned OBGYN Provider 04/13/24 Padmini Calderon DO [address] [address] Physician police clerk 04/22/24 Miller Garcia MD [address] [address] Assigned OBGYN Provider 06/13/24 documented as of this encounter
--- OUTSIDE RECORDS SUMMARY | 2024-08-29 10:55 | XMS_ITS | Encounter Summary ---
Author Organization [facility] Address [address] [place] [address] Care Team Providers Care Decoration Checker Name Role Phone No Ref-Primary, Physician Primary Care Provider No Ref-Primary, Physician Unavailable Ju Gaspar MD Unavailable Kim Doll RD Unavailable Unavailab Tara Barbosa CABLE RIGGER Unavailable [phone] Ju Gaspar MD Unavailable Padmini Calderon DO Unavailable Miller Garcia MD Unavailable [phone] Reason for Referral * Diagnostic Imaging Ultrasound (Routine) - Pending Review Specialty Diagnoses / Procedures Referred By Contac t Referred To Contact Radiology. Diagnoses Chronic hypertension in Procedures [facility] US Comprehensive Single F/U Kennedi Kerns MD [address] [place] [address] Phone: tel: fax: Referral ID Status Reason Start Date Expiration Date V isits Requested Visits Authorized [id number] Pending Review 05/09/2024 05/09/2025 1 1 Reason for Visit * Diagnostic Imaging Ultrasound (Routine) - Pending Review Specialty Diagnoses / Procedures Referred By Contac t Referred To Contact Radiology. Diagnoses Chronic hypertension in Procedures [facility] US Comprehensive Single F/U Kennedi Kerns MD [address] [place] [address] Phone: tel: fax: Referral ID Status Reason Start Date Expiration Date V isits Requested Visits Authorized [id number] Pending Review 05/09/2024 05/09/2025 1 1 Encounter Details Date Type Department Care Team (Latest Contact Info) Description 06/20/2024 7:54 AM CDT - 06/20/2024 11:59 PM CDT Hospital Encounter [facility] [address] [id number] Alyce Whitlock MD [address] [place] [address] Chronic hypertension in Discharge Disposition: [...] on file Legal Sex Female 5:03 AM DOCK 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 Gender Identity Not on file Sexual [...] units daily 30 mL 2 04/16/2024 4 metFORMIN (GLUCOPHAGE) 500 MG tabletIndications: Insulin controlled gestational diabetes mellitus (GDM) in second trimester Take 1 tablet (500 mg) by mouth 2 times daily (with meals) 60 tablet 3 04/08/2024 4 omeprazole (PRILOSEC) [address] capsuleIndications :Heartburn during in second trimester Take 1 capsule (10 mg) by mouth daily 60 capsule 2 2024 4 Pds[place]uda-Cty-Nl-FA ( 1 + IRON OR) 4 Vit-Fe Fumarate-FA ( MULTIVITAMIN WITH IRON) 28-0.8 MG TABS 06/19/2024 4 documented as of this encounter Plan of Treatment Not on file documented as of this encounter Goals Goal Patient Goal Type Associated Problems Recent Progress Patient-Stated? Author Create an action plan to increase financial stability Care Plan Patient expresses financial resource strain No Patt Gautam, [facility] Note: Barriers: Lack of housing Strengths: Engaged in care coordination Patient expressed understanding of goal: YES Action steps to achieve this goal: 1. I will review the resources provided by rehab care assistant 2. I will I will contact my care team with questions, concerns, or support needs. 3. I will use the clinic as a resource, and I understand I can contact my clinic with 24/7 after hours services available. Warehouse Processor will remain available as needed. documented as of this encounter Procedures Procedure Name Priority Date/Time Associated Diagnosis Comments [facility] US COMPREHENSIVE SINGLE F/U Routine 06/20/2024 8:56 AM CDT Chronic hypertension in documented in this encounter Results * [facility] US Comprehensive Single F/U (06/20/2024 8:56 AM CDT) Anatomical Region Laterality Modality Ultrasound 06/20/2024 7:56 AM CDT Impressions 06/20/2024 10:11 AM CDT IMPRESSION ----- 1. Mcmahan at 28w 2d gestational age. 2. The bowel again appear echogenic. 3. No other anomalies commonly detected by ultrasound were evident in the limited anatomic survey as described above. 4. Growth parameters and estimated weight are measuring ahead of gestational age (EFW 91%, AC 97%). 5. There is moderate polyhydramnios (JOHN 33.4 cm). 6. BPP with NST was reassuring. Narrative 06/20/2024 10:11 AM CDT ?Comp Follow Up ----- Pat. Name: ROLA MCKEON ? Study Date: ??06/20/2024 7:56am Pat. NO: ??[id number] ?Referring ??MD: JU GASPAR Site: ? [employer]: Noelle Jain RDMS : ??1990 ?Age: ?? 34 ----- INDICATION ----- Advanced Maternal Age--Multigravida Chronic hypertension - no meds Probable Type 2 diabetes - on insulin History of PPROM at 36 weeks. Echogenic bowel seen on prior exam. METHOD ----- Transabdominal ultrasound examination. View: Sufficient ----- Mcmahan . Number of fetuses: 1 DATING ----- ? Date ?Details ?Gest. age ?CARLOS LMP ?11/28/2023 ? 29 w + 2 d ? 09/03/2024 Previous U/S ?01/25/2024 ?GA, GA 7 w + 2 d ? 28 w + 2 d ? 09/10/2024 U/S ? 06/20/2024 ? based upon AC, BPD, Femur, HC ?29 w + 4 d ? 09/01/2024 Assigned dating ?based on ultrasound (GA), selected on 06/20/2024 ?28 w + 2 d ? 09/10/2024 GENERAL EVALUATION ----- Cardiac activity present. FHR 138 bpm. movements: present. Presentation: cephalic Placenta: No Previa, > 2 cm from internal os, Anterior Umbilical cord: 3 vessel cord Amniotic fluid: Amount of AF: Polyhydramnios, Moderate. MVP 10.1 cm. JOHN 33.4 cm. Q1 10.7 cm, Q2 7.9 cm, Q3 5.4 cm, Q4 9.5 cm BIOMETRY ----- BPD ? 73.0 ?mm ? 29w 2d ?Hadlock OFD ? 94.1 ?mm ? 27w 5d ?Nicolaides HC ? 266.3 ?mm ? 29w 0d ? Hadlock Cerebellum tr ?33.3 ?mm ? 29w 1d ? Nicolaides AC ? 267.0 ?mm ? 30w 6d ?97% ?Hadlock Femur ?54.8 ?mm ? 29w 0d ? Hadlock Weight Calculation: EFW ?1,478 ?g ?91% ? Hadlock EFW (lb,oz) ?3 lb 4 ?oz EFW by ? Hadlock (HIL-FU-SV-ND) Head / Face / Neck Biometry: Hot Shot ?5.2 ? mm CM ? 4.4 ? mm ANATOMY ----- The following structures appear normal: Head / Neck ? Cranium. Head size. Head shape. Lateral ventricles. Midline falx. Cavum septi pellucidi. Cerebellum. Cisterna magna. Thalami. Face ? Lips. Profile. Nose. Heart / Thorax ?4-chamber view. RVOT view. LVOT view. 0-wqmhzx-txanlvb view. ? Diaphragm. Abdomen ? Stomach. Bladder. Spine ?Cervical spine. Thoracic spine. The following structures were documented previously: Abdomen ? Kidneys. Spine ?Lumbar spine. Sacral spine. sex: female. BIOPHYSICAL PROFILE ----- 0: breathing movements 2: Gross body movements 2: tone 2: Amniotic fluid volume NST: reactive 05/31 Biophysical profile score MATERNAL STRUCTURES ----- Cervix ?Not examined Right Ovary ?Not examined Left Ovary ?Not examined NON STRESS TEST ----- NST interpretation: reactive. Test duration 34 min. Baseline FHR 145 bpm. Baseline variability: moderate. Accelerations: present. Decelerations: absent. Uterine activity: absent RECOMMENDATION ----- Thank-you for referring your patient for ultrasound assessment. I discussed the findings on today's ultrasound with the patient. There again appears to be echogenic bowel. She has previously been counseled on this and workup has shown negative carrier screening for CF. Her CMV serologies were suggestive of prior infection at least 12-16 weeks before labs were drawn, however, cannot rule out infection in early (IgG positive, IgM negative, high avidity). She has previously been offered and declined amniocentesis. There is new moderate polyhydramnios noted today. Her history is notable for presumed progestational diabetes given early diagnosis in this . She does not have a recent A1C on file (02/19 6.2%). We discussed that based on our measurements today her polyhydramnios is considered to be moderate. We discussed that mild polyhydramnios is often idiopathic or related to underlying diabetes. If related to diabetes, proper management can lead to resolution. We discussed that worsening degrees of polyhydramnios (moderate or severe) are more likely to be associated with underlying abnormalities (up to 10-20% with moderate polyhydramnios). Etiologies for polyhydramnios include abnormalities which impair swallowing such as central nervous system abnormalities, cleft palate, micrognathia, abnormalities that compress the trachea, gastrointestinal obstructions including TE fistula, or muscular disorders such as myotonic dystrophy. Additionally, abnormalities that cause a high-output cardiac state can also lead to polyhydramnios such as a sacrococcygeal teratoma or placental chorioangioma. None of the anomalies commonly associated with polyhydramnios have been identified. The recommendations in the setting of moderate (JOHN 30-34 cm) polyhydramnios include delivery at 39 weeks along with weekly testing. Finally, we discussed that size is measuring ahead of established dates. We discussed that this may again be related to diagnosis of pre-gestational diabetes or just be related to familial genetic factors. She is working closely with her diabetes team to optimize values and reaches out to them when she notices 2-3 days of elevated values for adjustments (currently taking levemir 50, novalog /, and metformin BID). We discussed that EFW at time of delivery would influence our recommendations regarding mode of delivery. She is hopeful for TOLAC in this . Given suboptimally controlled progestational diabetes and new finding of moderate polyhydramnios, recommend weekly testing until 32 weeks at which time we will increase to twice weekly testing. Will continue to follow growth every 4 weeks. Return to primary provider for continued care. If you have questions regarding today's evaluation or if we can be of further service, please contact the [facility]. anomalies may be present but not detected I spent a total of 20 minutes on the date of this encounter including preparing to see the patient (reviewing medical records/tests), in direct zsvz-tt-dfoi contact with the patient during her visit with the majority spent counseling and discussing the plan of care and documenting the visit in the electronic medical record. Please see note for details. Procedure Note Alyce Whitlock MD - 06/20/2024 Comp Follow Up ----- Pat. Name: ROLA MCKEON Study Date: 06/20/2024 7:56am Pat. NO: [id number] Referring MD: JU GASPAR Site: [employer]: Noelle Jain RDMS : 1990 Age: 34 ----- INDICATION ----- Advanced Maternal Age--Multigravida Chronic hypertension - no meds Probable Type 2 diabetes - on insulin History of PPROM at 36 weeks. Echogenic bowel seen on prior exam. METHOD ----- Transabdominal ultrasound examination. View: Sufficient ----- Mcmahan . Number of fetuses: 1 DATING ----- DateDetailsGest. age CARLOS LMP w + 2 d 09/03/2024 Previous U/S 01/25/2024 GA, GA7 w + 2 d28 w + 2 d 09/10/2024 U/S 06/20/2024ased upon AC, BPD, Femur, HC29 w + 4 d 09/01/2024 Assigned dating based on ultrasound (GA), selected on06/20/2024 28w + 2 d 09/10/2024 GENERAL EVALUATION ----- Cardiac activity present. FHR 138 bpm. movements: present.Presentation: cephalic Placenta: No Previa, > 2 cm from internal os, Anterior Umbilical cord: 3 vessel cord Amniotic fluid: Amount of AF: Polyhydramnios, Moderate. MVP 10.1 cm. AFI33.4 cm. Q1 10.7 cm, Q2 7.9 cm, Q3 5.4 cm, Q4 9.5 cm BIOMETRY ----- BPD 73.0mm 29w 2dHadlock OFD 94.1mm 27w 5dNicolaides HC 266.3mm 29w 0dHadlock Cerebellum tr 33.3mm 29w 1dNicolaides AC 267.0mm 30w 6d 97%Hadlock Femur 54.8mm 29w 0dHadlock Weight Calculation: EFW 1,478g 91%Hadlock EFW (lb,oz) 3 lb 4oz EFW by Hadlock(EQM-[id number]-FL) Head / Face / Neck Biometry: Hot Shot 5.2mm CM 4.4mm ANATOMY ----- The following structures appear normal: Head / Neck Cranium. Head size. Head shape.Lateral ventricles. Midline falx. Cavum septi pellucidi. Cerebellum.Cisterna magna. Thalami. Face Lips. Profile. Nose. Heart / Thorax 4-chamber view. RVOT view. LVOT view.4-bkawmo-mrrbycr view. Diaphragm. Abdomen Stomach. Bladder. Spine Cervical spine. Thoracic spine. The following structures were documented previously: Abdomen Kidneys. Spine Lumbar spine. Sacral spine. sex: female. BIOPHYSICAL PROFILE ----- 0: breathing movements 2: Gross body movements 2: tone 2: Amniotic fluid volume NST: reactive 05/31 Biophysical profile score MATERNAL STRUCTURES ----- Cervix Not examined Right Ovary Not examined Left Ovary Not examined NON STRESS TEST ----- NST interpretation: reactive. Test duration 34 min. Baseline FHR 145 bpm.Baseline variability: moderate. Accelerations: present. Decelerations:absent. Uterine activity: absent RECOMMENDATION ----- Thank-you for referring your patient for ultrasound assessment. Idiscussed the findings on today's ultrasound with the patient. There again appears to be echogenic bowel. She has previously beencounseled on this and workup has shown negative carrier screening for CF.Her CMV serologies were suggestive of prior infection at least 12-16 weeks before labs weredrawn, however, cannot rule out infection in early (IgGpositive, IgM negative, high avidity). She has previously been offered and declined amniocentesis. There is new moderate polyhydramnios noted today. Her history is notablefor presumed progestational diabetes given early diagnosis in thispregnancy. She does not have a recent A1C on file (02/19 6.2%). We discussed that based on ourmeasurements today her polyhydramnios is considered to be moderate. Wediscussed that mild polyhydramnios is often idiopathic or related to underlying diabetes. Ifrelated to diabetes, proper management can lead to resolution. Wediscussed that worsening degrees of polyhydramnios (moderate or severe) are more likely to beassociated with underlying abnormalities (up to 10-20% with moderatepolyhydramnios). Etiologies for polyhydramnios include abnormalities which impairswallowing such as central nervous system abnormalities, cleft palate,micrognathia, abnormalities that compress the trachea, gastrointestinal obstructions including TE fistula,or muscular disorders such as myotonic dystrophy. Additionally, fetalabnormalities that cause a high-output cardiac state can also lead to polyhydramnios such as asacrococcygeal teratoma or placental chorioangioma. None of the anomaliescommonly associated with polyhydramnios have been identified. The recommendations in thesetting of moderate (JOHN 30-34 cm) polyhydramnios include delivery at 39weeks along with weekly testing. Finally, we discussed that size is measuring ahead of establisheddates. We discussed that this may again be related to diagnosis ofpre-gestational diabetes or just be related to familial genetic factors. She is working closely with herdiabetes team to optimize values and reaches out to them when she notices2-3 days of elevated values for adjustments (currently taking levemir 50, novalog 6/4, andmetformin BID). We discussed that EFW at time of delivery would influenceour recommendations regarding mode of delivery. She is hopeful for TOLAC in this . Given suboptimally controlled progestational diabetes and new finding ofmoderate polyhydramnios, recommend weekly testing until 32 weeksat which time we will increase to twice weekly testing. Will continue to follow fetalgrowth every 4 weeks. Return to primary provider for continued care. If you have questions regarding today's evaluation or if we can be offurther service, please contact the [facility]. anomalies may be present but not detected I spent a total of 20 minutes on the date of this encounter includingpreparing to see the patient (reviewing medical records/tests), in kmlkuneayb-se-ftac contact with the patient during her visit with the majority spent counseling and discussingthe plan of care and documenting the visit in the electronic medicalrecord. Please see note for details. IMPRESSION ----- 1. Mcmahan at 28w 2d gestational age. 2. The bowel again appear echogenic. 3. No other anomalies commonly detected by ultrasound were evident in thelimited anatomic survey as described above. 4. Growth parameters and estimated weight are measuring ahead ofgestational age (EFW 91%, AC 97%). 5. There is moderate polyhydramnios (JOHN 33.4 cm). 6. BPP with NST was reassuring. us Kennedi Kerns MD [facility] US ORDERABLES Edit ed Result - Final documented in this encounter Visit Diagnoses Diagnosis Chronic hypertension in Benign essential hypertension complicating , childbirth, and the puerperium, unspecified as to episode of care documented in this encounter Additional Health Concerns Active Problems Noted Date Diagnosed Date Patient expresses financial resource strain 03/23 documented as of this encounter Care Teams Decoration Checker Relationship Specialty Start Date End Date No Ref-Primary, Physician PCP - General 02/28/24 07/20/24 No Ref-Primary, Physician 02/28/24 Ju Gaspar MD [address] [address] Physician specialty person 02/28/[address] [facility] [place] [address] Director Of Student Services Dietitian 03/06/24 [facility] Lead Warehouse Processor 04/11/24 Ju Gaspar MD [address], [address] [address] Assigned OBGYN Provider 04/13/24 Padmini Calderon DO [address] [address] Physician specialty person 04/22/24 Miller Garcia MD [address] [address] Assigned OBGYN Provider 06/13/24 documented as of this encounter
--- OUTSIDE RECORDS SUMMARY | 2024-08-29 10:55 | XMS_ITS | Encounter Summary ---
Author Organization [facility] Address [address] [place] [address] Care Team Providers Care Gore Cutter Name Role Phone No Ref-Primary, Physician Primary Care Provider No Ref-Primary, Physician Unavailable Farrukh Gaspar MD Unavailable Kim Doll RD Unavailable Unavailab Tara Barbosa Unavailable Farrukh Gaspar MD Unavailable Padmini Calderon DO Unavailable Miller Garcia MD Unavailable [phone] Reason for Visit * Reason Comments Follow Up GDM Encounter Details Date Type Department Care Team (Late st Contact Info) Description 07/09/2024 2:30 PM CDT Virtual Visit [place] [id number] [facility] [address] [place] [phone] Teagan Mark, DOUGLAS [address] [facility] [address] [place], [place] [id number] Insulin controlled gestational diabetes mellitus (GDM) in [...] on file 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 Insulin controlled gestational diabetes mellitus (GDM) in third trimester HPI Rola Mckeon is a very pleasant 33 year old old female who presents for GESTATIONAL Diabetes Mellitus. She is currently 31w . Due date is 09/10/24 Diagnosed with GDM based on an OGTT. She hashad GDM in prior pregnancies. Current carbohydrate intake:consistent with recommendations of 30g-60g-60g. I have reviewed her blood glucose logs and note that the: Fasting readings are:above range on current regimen Postprandial readings are:above range on current regimen Current Levemir dose: 50 Current Prandial insulin: 6/0/4 10 units with extra CHO Blood glucose logs/meter brought in and data reviewed and incorporated into decision-making. Planned delivery at: OBGYN: Lakesha Padron Therapy/Interventions in the past: She has been seen by the Cheese Blender- and has received instruction on carbohydrate counting and consistency. Records from referring provider and other sources have also been reviewed and incorporated into decision-making. TODAY: Rola is seen via Video visit in follow-up. We are joined by MICHELLE Vegas. She supplies BG today and she is having FBS elevations, as well as post lunch elevations. We will increase her HS dose,and have her start insulin for lunch as well. She also reports today that she and her OB were not in agreement about her Plan, so she has gone back to her CNM. She reports that CNM is aware of h er insulin use. She has been having Breakfast bowls in the morning instead of cereal, and is taking8 units with these. BP has been in range, per pt. Baby is moving appropriately and she is having noswelling. Blood Sugar Number : 07/03/24 Fasting - 90 Breakfast - 70 Lunch - 144 Dinner- 97 07/04/24 Fasting - 93 Breakfast -115 Lunch - 149 Dinner - 123 07/05/24 Fasting - 86 Breakfast - 103 Lunch- 112 Dinner - 120 07/06/24 Fasting - 82 Breakfast - 134 Lunch - 129 Dinner - 103 07/07/24 Fasting - 95 Breakfast - 106 Lunch - 153 Dinner -103 07/08/24 Fasting - 97 breakfast - 123 Lunch - 132 Dinner - 137 07/09/24 Fasting - 102 Breakfast - 114 Lunch - 134 Past Medical History Patient Active Problem [...] Murmur Rhinitis, allergic Vitamin D deficiency Pre-eclampsia Past Surgical History Past Surgical History: Procedure [...] 11/28/2023 Wt Readings from Last 3 Encounters: 06/13/24 72.2 kg (159 lb 3.2 oz) 05/14/24 70.8 kg (156 lb) 04/10/24 70.1 kg (154 lb 8 oz) Physical Exam Constitutional: Well developed, Well nourished HENT: Normocephalic, Neck: normal in appearance Eyes: PERRL, Conjunctiva pink Respiratory: No respiratory distress Skin: No acanthosis nigricans, lipoatrophy or lipodystrophy Neurologic: Alert & oriented x 3, nonfocal Psychiatric: Affect, Mood, Insight appropriate Assessment 1. Insulin controlled gestational diabetes mellitus (GDM) in third trimester Plan 1. GESTATIONAL DIABETES- Adjust dose as follows: -Levemir insulin 54 units. Increase by 2 units every 2 [...] hour after each meal. Contact this clinic [phone] if blood glucose is not within the above- mentioned goals. We discussed the importance of excellent glycemic control during to limit complications such as macrosomia, shoulder dystocia, hypoglycemia and hyperbilirubinemia. I have discussed the patient's increased risk of recurrent GDM and/or development of type 2 diabetes later inlife. Follow-up in 2 weeks. Teagan Mark NP 07/10/2024 Lab Results No results found for: HGBA1C, CREATININE, MICROALBUR No results found for: CHOL, HDL, TRIG, CHOLHDL @LASTLFT@ Current Medications Virtual Visit Details Type of service: Video Visit Video Start Time: 1430 Video End Time: 1450 Originating Location (pt. Location): Home Distant Location (provider location): On-site Platform used for Video Visit: FIGS documented in this encounter Plan of Treatment Not on file documented as of this encounter Goals Goal Patient Goal Type Associated Problems Recent Progress Patient-Stated? Author Create an action plan to increase financial stability Care Plan Patient expresses financial resource strain No Patt Gautam, [facility] Note: Barriers: Lack of housing Strengths: Engaged in care coordination Patient expressed understanding of goal: YES Action steps to achieve this goal: 1. I will review the resources provided by child care sitter 2. I will I will contact my care team with questions, concerns, or support needs. 3. I will use the clinic as a resource, and I understand I can contact my clinic with 24/7 after hours services available. Fork Lift Truck Operator will remain available as needed. documented as of this encounter Visit Diagnoses Diagnosis Insulin controlled gestational diabetes mellitus (GDM) in third trimester- Primary documented in this encounter Additional Health Concerns Active Problems Noted Date Diagnosed Date Patient expresses financial resource strain 03/23 documented as of this encounter Care Teams Gore Cutter Relationship Specialty Start Date End Date No Ref-Primary, Physician PCP - General 02/28/24 07/20/24 No Ref-Primary, Physician 02/28/24 Farrukh Gaspar MD [address], [address] [address] Physician boring machine set up operator 02/28/[address] [facility] MARIEL MICHEL [address] Cheese Blender Dietitian 03/06/24 [facility] Lead Fork Lift Truck Operator 04/11/24 Farrukh Gaspar MD [address], [address] [address] Assigned OBGYN Provider 04/13/24 Padmini Calderon DO [address] [address] Physician boring machine set up operator 04/22/24 Miller Garcia MD [address] [address] Assigned OBGYN Provider 06/13/24 documented as of this encounter
--- OUTSIDE RECORDS SUMMARY | 2024-08-29 10:55 | XMS_ITS | Encounter Summary ---
Author Organization [place] Address [address] [place] [address]. [place] [address] Care Team Providers Care Inside Sales Account Manager Name Role Phone No Ref-Primary, Physician Primary Care Provider No Ref-Primary, Physician Unavailable [phone] Farrukh Gaspar MD Unavailable Kim Doll RD Unavailable Unavailab Tara Barbosa Unavailable Farrukh Gaspar MD Unavailable Padmini Calderon DO Unavailable Miller Garcia MD Unavailable [phone] Padmini Calderon DO Unavailable [phone] Lakesha Padron APRN [facility] Primary Care Provider [phone] Encounter Details Date Type Department Care Team (Late st Contact Info) Description 06/25/2024 [facility] Medical Advice [address] [place] [address] Jus Peter, MA Social History [...] on file 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 I will I will contact my care team with questions, concerns, or support needs. 3. I will use the clinic as a resource, and I understand I can contact my clinic with 24/7 after hours services available. Satellite Tv Technician will remain available as needed. documented as of this encounter Visit Diagnoses Not on filedocumented in this encounter Additional Health Concerns Active Problems Noted Date Diagnosed Date Patient expresses financial resource strain 03/23 documented as of this encounter Care Teams Inside Sales Account Manager Relationship Specialty Start Date End Date No Ref-Primary, Physician PCP - General 02/28/24 07/20/24 Lakesha Padron APRN CNM [address] [facility] [place] [address] PCP - General retarder operator 07/21/24 No Ref-Primary, Physician 02/28/24 Farrukh Gaspar MD [address], [address] [address] Physician retarder operator 02/28/[address] [facility] [place] [address] Sign Poster Dietitian 03/06/24 Tara Martin [facility] Lead Satellite Tv Technician 04/11/24 Farrukh Gaspar MD [address] [address] Assigned OBGYN Provider 04/13/24 Padmini Calderon DO [address] [address] Physician retarder operator 04/22/24 Miller Garcia MD [address] [address] Assigned OBGYN Provider 06/13/24 Padmini Calderon DO [address] [address] Assigned OBGYN Provider 07/14/24 documented as of this encounter
--- OUTSIDE RECORDS SUMMARY | 2024-08-29 10:55 | XMS_ITS | Encounter Summary ---
Author Organization [place] Address [facility] [place] [address] Care Team Providers Care Wire Harness Design Engineer Name Role Phone No Ref-Primary, Physician Primary Care Provider No Ref-Primary, Physician Unavailable [phone] Farrukh Gaspar MD Unavailable Kim Doll RD Unavailable Unavailab Tara BarbosaSW Unavailable Farrukh Gaspar MD Unavailable Padmini Calderon DO Unavailable Miller Garcia MD Unavailable [phone] Reason for Referral * Diagnostic Imaging Ultrasound (Routine) - Pending Review Specialty Diagnoses / Procedures Referred By Contac t Referred To Contact Radiology. Diagnoses with type 2 diabetes mellitus in second trimester Polyhydramnios affecting Procedures [facility] BPP Single Alyce Whitlock MD [address] [facility] [[email or web address] [address] [place] [address] Phone: tel: fax: Referral ID Status Reason Start Date Expiration Date V isits Requested Visits Authorized [id number] Pending Review 06/20/2024 06/20/2025 1 1 Reason for Visit * Diagnostic Imaging Ultrasound (Routine) - Pending Review Specialty Diagnoses / Procedures Referred By Kalyani t Referred To Contact Radiology. Diagnoses with type 2 diabetes mellitus in second trimester Polyhydramnios affecting Procedures [facility] BPP Single Alyce Whitlock MD [address] [place] [address] Phone: tel: fax: Referral ID Status Reason Start Date Expiration Date V isits Requested Visits Authorized [id number] Pending Review 06/20/2024 06/20/2025 1 1 Encounter Details Date Type Department Care Team (Latest Contact Info) Description 07/10/2024 3:00 PM CDT - 07/10/2024 11:59 PM CDT Hospital Encounter [facility] [address] [place] [phone] Dacia Alvarez MD [address] [place] [address] with type 2 diabetes mellitus [...] on file 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 Author Create an action plan to increase financial stability Care Plan Patient expresses financial resource strain Patt Young, [facility] Note: Barriers: Lack of housing Strengths: Engaged in care coordination Patient expressed understanding of goal: YES Action steps to achieve this goal: 1. I will review the resources provided by healthcare sales representative 2. I will I will contact my care team with questions, concerns, or support needs. 3. I will use the clinic as a resource, and I understand I can contact my clinic with 24/7 after hours services available. Medical Practice Assistant will remain available as needed. documented as of this encounter Procedures Procedure Name Priority Date/Time Associated Diagnosis Comments [facility] BPP SINGLE Routine 07/10/2024 3:34 PM CDT with type 2 diabetes mellitus in second trimester Polyhydramnios affecting documented in this encounter Results * [facility] BPP Single (07/10/2024 3:34 PM CDT) Anatomical Region Laterality Modality Ultrasound 07/10/2024 3:16 PM CDT Impressions 07/10/2024 3:53 PM CDT IMPRESSION ----- 1. Mcmahan at 31w 1d gestational age. 2. The amniotic fluid volume appeared normal. 3. The BPP was reassuring. Narrative 07/10/2024 3:53 PM CDT ?BPP ----- Pat. Name: LINDA, ROLA ? Study Date: ??07/10/2024 3:16pm Pat. NO: ??[id number] ?Referring ??MD: ESTHER LAURENT Site: ? Sec Reporting Consultant: Kota Coe RDMS : ??1990 ?Age: ?? 34 ----- INDICATION ----- Type 2 Diabetes Previous polyhydramnios. METHOD ----- Transabdominal ultrasound examination. View: Sufficient ----- Mcmahan . Number of fetuses: 1 DATING ----- ? Date ?Details ?Gest. age ?CARLOS LMP ?11/28/2023 ? 32 w + 1 d ? 09/03/2024 Previous U/S ?01/25/2024 ?GA, GA 7 w + 2 d ? 31 w + 1 d ? 09/10/2024 Assigned dating ?based on ultrasound (GA), selected on 06/20/2024 ?31 w + 1 d ? 09/10/2024 GENERAL EVALUATION ----- Cardiac activity present. FHR 142 bpm. movements: visualized. Presentation: cephalic Placenta: No Previa, > 2 cm from internal os, Anterior Umbilical cord: previously studied AMNIOTIC FLUID ASSESSMENT ----- Amount of AF: normal MVP 9.2 cm. JOHN 22.0 cm. Q1 3.5 cm, Q2 7.1 cm, Q3 6.5 cm, Q4 5.0 cm BIOPHYSICAL PROFILE ----- 2: breathing movements 2: Gross body movements 2: tone 2: Amniotic fluid volume 8/8 Biophysical profile score Interpretation: normal RECOMMENDATION ----- Thank-you for referring your patient for surveillance. We discussed the results of the ultrasound with the patient. Initiate twice weekly surveillance due to DM in . Continue serial growth US for the same indication. Return to primary provider for continued care. If you have questions regarding today's evaluation or if we can be of further service, please contact the [facility]. anomalies may be present but not detected Procedure Note Dacia Alvarez MD - 07/10/2024 BPP ----- Pat. Name: ROLA MCKEON Study Date: 07/10/2024 3:16pm Pat. NO: [id number] Referring MD: ESTHER LAURENT Site: Sec Reporting Consultant: Kota Coe RDMS : 1990 Age: 34 ----- INDICATION ----- Type 2 Diabetes Previous polyhydramnios. METHOD ----- Transabdominal ultrasound examination. View: Sufficient ----- Mcmahan . Number of fetuses: 1 DATING ----- DateDetailsGest. age CARLOS LMP w + 1 d 09/03/2024 Previous U/S 01/25/2024 GA, GA7 w + 2 d31 w + 1 d 09/10/2024 Assigned dating based on ultrasound (GA), selected on06/20/2024 31w + 1 d 09/10/2024 GENERAL EVALUATION ----- Cardiac activity present. FHR 142 bpm. movements: visualized.Presentation: cephalic Placenta: No Previa, > 2 cm from internal os, Anterior Umbilical cord: previously studied AMNIOTIC FLUID ASSESSMENT ----- Amount of AF: normal MVP 9.2 cm. JOHN 22.0 cm. Q1 3.5 cm, Q2 7.1 cm, Q3 6.5 cm, Q4 5.0 cm BIOPHYSICAL PROFILE ----- 2: breathing movements 2: Gross body movements 2: tone 2: Amniotic fluid volume 8/8 Biophysical profile score Interpretation: normal RECOMMENDATION ----- Thank-you for referring your patient for surveillance. We discussed the results of the ultrasound with the patient. Initiate twice weekly surveillance due to DM in .Continue serial growth US for the same indication. Return to primary provider for continued care. If you have questions regarding today's evaluation or if we can be offurther service, please contact the [facility]. anomalies may be present but not detected IMPRESSION ----- 1. Mcmahan at 31w 1d gestational age. 2. The amniotic fluid volume appeared normal. 3. The BPP was reassuring. us Alyce Whitlock MD [facility] ORDERABLES Edited Res ult - Final documented in this encounter Visit Diagnoses Diagnosis with type 2 diabetes mellitus in second trimester Polyhydramnios affecting documented in this encounter Additional Health Concerns Active Problems Noted Date Diagnosed Date Patient expresses financial resource strain 03/23 documented as of this encounter Care Teams Wire Harness Design Engineer Relationship Specialty Start Date End Date No Ref-Primary, Physician PCP - General 02/28/24 07/20/24 No Ref-Primary, Physician 02/28/24 Farrukh Gaspar MD [address] [address] Physician laborer brooder farm 02/28/[address] [place] [address] In Home Caregiver Dietitian 03/06/24 Tara Martin, [facility] Lead Medical Practice Assistant 04/11/24 Farrukh Gaspar MD [address], [address] [address] Assigned OBGYN Provider 04/13/24 Padmini Calderon DO [address] [address] Physician laborer brooder farm 04/22/24 Miller Garcia MD [address] [address] Assigned OBGYN Provider 06/13/24 documented as of this encounter
--- OUTSIDE RECORDS SUMMARY | 2024-08-29 10:55 | XMS_ITS | Encounter Summary ---
Author Organization [place] Address [facility] [place] [address] Care Team Providers Care Salesperson Pianos And Organs Name Role Phone No Ref-Primary, Physician Primary Care Provider No Ref-Primary, Physician Unavailable Farrukh Gaspar MD Unavailable Kim Doll RD Unavailable Unavailab Tara Barbosa Unavailable Farrukh Gaspar MD Unavailable [phone] Padmini Calderon DO Unavailable Miller Garcia MD Unavailable [phone] Reason for Referral * Diagnostic Imaging Ultrasound (Routine) - Pending Review Specialty Diagnoses / Procedures [facility] Ref[facility] To Contact Rad[facility]. Diagnoses with type 2 diabetes mellitus in second trimester Polyhydramnios affecting Procedures [facility] BPP Single Alyce Whitlock MD [address] [facility] [address] [place] [address] Phone: tel: fax: Referral ID Status Reason Start Date Expiration Date V isits Requested Visits Authorized [id number] Pending Review 06/20/2024 06/20/2025 1 1 * Diagnostic Imaging Ultrasound (Routine) - Pending Review Specialty Diagnoses / Procedures Referred By Kalyani montelongo Referred To Contact Radiology. Diagnoses with type 2 diabetes mellitus in second trimester Polyhydramnios affecting Procedures [facility] BRIEN Single Alyce Whitlock MD [address] [place] [address] Phone: tel: fax: Referral ID Status Reason Start Date Expiration Date V isits Requested Visits Authorized [id number] Pending Review 06/20/2024 06/20/2025 1 1 * Diagnostic Imaging Ultrasound (Routine) - Pending Review Specialty Diagnoses / Procedures Referred By Kalyani montelongo Referred To Contact Radiology. Diagnoses with type 2 diabetes mellitus in second trimester Polyhydramnios affecting Procedures [facility] Alyce Pryor MD [address] [place] [address] Phone: tel: fax: Referral ID Status Reason Start Date Expiration Date V isits Requested Visits Authorized [id number] Pending Review 06/20/2024 06/20/2025 1 1 Reason for Visit * Reason Comments Ultrasound RL2- T2DM, CHTN no m edication, echogenic bowel Encounter Details Date Type Department Care Team (Late st Contact Info) Description 06/20/2024 8:30 AM CDT Office Visit [facility] [address] [phone] Alyce Whitlock MD [address] [place] [address] with type 2 diabetes mellitus in second trimester (Primary Dx); Polyhydramnios affecting Social History Tobacco Use Types Packs/Day Years [...] on file 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 Alyce Whitlock documented in this encounter Nursing Notes * Kim Quintana RN - 06/20/2024 8:30 AM CDT Patient reports positive movement, no pain, no contractions, leaking of fluid, or bleeding. Reports blood sugar values mostly in range- adjusting insulin as needed. Reports blood pressures controlled without medications. Patient denies headache, visual changes, nausea/vomiting, epigastric pain related to preeclampsia. SBAR given to MFJose BHATT, see their note in Epic. NST Performed due to BPP 03/29. Dr. Brant Whitlock reviewed efm tracing. See NST/BPP Doc Flowsheet tab. documented in this encounter Plan of Treatment Scheduled Orders Name Type Priority Associated Diagnoses Orde r Schedule Nonstress Test (MFM Order Only} OB Routine with type 2 diabetes mellitus in second trimester Polyhydramnios affecting Ordered: 06/20/2024 documented as of this encounter Goals Goal Patient Goal Type Associated Problems Recent Progress Patient-Stated? Author Create an action plan to increase financial stability Care Plan Patient expresses financial resource strain Patt Young, INTAKE COORDINATOR Note: Barriers: Lack of housing Strengths: Engaged in care coordination Patient expressed understanding of goal: YES Action steps to achieve this goal: 1. I will review the resources provided by palliative care coordinator 2. I will I will contact my care team with questions, concerns, or support needs. 3. I will use the clinic as a resource, and I understand I can contact my clinic with 24/7 after hours services available. Growth Hacker will remain available as needed. documented as of this encounter Results * [facility] BPP Single (07/10/2024 3:34 PM CDT) Anatomical Region Laterality Modality Ultrasound 07/10/2024 3:16 PM CDT Impressions 07/10/2024 3:53 PM CDT IMPRESSION ----- 1. Mcmahan at 31w 1d gestational age. 2. The amniotic fluid volume appeared normal. 3. The BPP was reassuring. Narrative 07/10/2024 3:53 PM CDT ?BPP ----- Pat. Name: ROLA MCKEON ? Study Date: ??07/10/2024 3:16pm Pat. NO: ??[id number] ?Referring ??: ESTHER LAURENT Site: ? Cold Roll Operator: Kota Coe RDMS : ??1990 ?Age: ?? [...] MCKEON Study Date: 07/10/2024 3:16pm Pat. NO: [id number] Referring MD: ESTHER LAURENT Site: Cold Roll Operator: Kota PATY Coe : 1990 Age: 34 ----- INDICATION ----- Type 2 Diabetes Previous polyhydramnios. METHOD ----- Transabdominal ultrasound examination. View: Sufficient ----- Mcmahan . Number of fetuses: 1 DATING ----- DateDetailsGest. age CARLOS LMP w + 1 d 09/03/2024 Previous U/S 01/25/2024 GA, GA7 w + 2 d31 w + 1 d 09/10/2024 Assigned dating based on ultrasound (GA), selected 06/20/2024 31w + 1 d 09/10/2024 GENERAL EVALUATION [...] 3. The BPP was reassuring. us Alyce TRUONG [facility] US ORDERABLES Edited Res ult - Final * [facility] Single (07/04/2024 4:12 PM CDT) Anatomical Region Laterality Modality Ultrasound 07/04/2024 3:22 PM CDT Impressions 07/04/2024 3:54 PM CDT IMPRESSION ----- 1. Mcmahan at 30w 2d gestational age. 2. The amniotic fluid volume appeared normal. 3. The BPP was reassuring. Narrative 07/04/2024 3:54 PM CDT ?BPP ----- Pat. Name: ROLA MCKEON ? Study Date: ??07/04/2024 3:22pm Pat. NO: ??[id number] ?Referring ??: ESTHER LAURENT Site: ? Cold Roll Operator: Nathalie Harman RDMS : ??1990 ?Age: ?? [...] MCKEON Study Date: 07/04/2024 3:22pm Pat. NO: [id number] Referring MD: ESTHER LAURENT Site: Cold Roll Operator: Nathalie Harman RDMS : 1990 Age: 34 ----- INDICATION ----- Type 2 Diabetes Polyhydramnios METHOD ----- Transabdominal ultrasound examination. View: Sufficient ----- Mcmahan . Number of fetuses: 1 DATING ----- DateDetailsGest. age CARLOS LMP 2/7/073966 w + 2 d 09/03/2024 Previous U/S 01/25/2024 GA, GA7 w + 2 d30 w + 2 d 09/10/2024 Assigned dating based on ultrasound (GA), selected on06/20/2024 30w + 2 d 09/10/2024 GENERAL EVALUATION [...] 3. The BPP was reassuring. us Alyce TRUONG [facility] US ORDERABLES Edited Res ult - Final * [facility] BP Single (06/25/2024 3:42 PM CDT) Anatomical Region Laterality Modality Ultrasound 06/25/2024 3:36 PM CDT Impressions 06/25/2024 6:18 PM CDT IMPRESSION ----- 1. Mcmahan at 29w 0d gestational age. 2. The amniotic fluid index was 28.4 cm consistent with mild polyhydramnios. 3. The BPP was 05/29. Narrative 06/25/2024 6:18 PM CDT ?BPP ----- Pat. Name: ROLA MCKEON ? Study Date: ??06/25/2024 3:36pm Pat. NO: ??[id number] ?Referring ??MD: ESTHER LAURENT Site: ? Cold Roll Operator: Kandice Sorto RDMS : ??1990 ?Age: ?? 34 ----- INDICATION ----- Type 2 Diabetes Polyhydramnios METHOD ----- Transabdominal ultrasound examination. View: Sufficient ----- Mcmahan . Number of fetuses: 1 DATING ----- ? Date ?Details ?Gest. age ?CARLOS LMP ?11/28/2023 ? 30 w + 0 d ? 09/03/2024 Previous U/S ?01/25/2024 ?GA, GA 7 w + 2 d ? 29 w + 0 d ? 09/10/2024 Assigned dating ?based on ultrasound (GA), selected on 06/20/2024 ?29 w + 0 d ? 09/10/2024 GENERAL EVALUATION ----- Cardiac activity present. FHR 143 bpm. movements: visualized. Presentation: cephalic Placenta: No Previa, > 2 cm from internal os, Anterior Umbilical cord: previously studied AMNIOTIC FLUID ASSESSMENT ----- Amount of AF: Mild, Polyhydramnios MVP 8.1 cm. JOHN 28.4 cm. Q1 9.1 cm, Q2 8.1 cm, Q3 4.7 cm, Q4 6.5 cm BIOPHYSICAL PROFILE ----- 2: breathing movements 2: Gross body movements 2: tone 2: Amniotic fluid volume 8/8 Biophysical profile score Interpretation: normal RECOMMENDATION ----- Thank-you for referring your patient to assess growth. Her visit today was scheduled as a remote read scan and therefore I did not directly discuss the findings of today's ultrasound with the patient. Our nursing team did, however, relay the pertinent results and ongoing care plan. Recommendation/Plan: - Weekly testing until 31st week - Twice weekly testing at 32 weeks - Serial growth US every 4 weeks Return to primary provider for continued care. If you have questions regarding today's evaluation or if we can be of further service, please contact the [facility]. anomalies may be present but not detected Procedure Note Dacia Alvarez MD - 06/25/2024 BPP ----- Pat. Name: ROLA MCKEON Study Date: 06/25/2024 3:36pm Pat. NO: [id number] Referring MD: ESTHER LAURENT Site: Cold Roll Operator: Kandice Sorto RDMS : 1990 Age: 34 ----- INDICATION ----- Type 2 Diabetes Polyhydramnios METHOD ----- Transabdominal ultrasound examination. View: Sufficient ----- Mcmahan . Number of fetuses: 1 DATING ----- DateDetailsGest. age CARLOS LMP w + 0 d 09/03/2024 Previous U/S 01/25/2024 GA, GA7 w + 2 d29 w + 0 d 09/10/2024 Assigned dating based on ultrasound (GA), selected on06/20/2024 29w + 0 d 09/10/2024 GENERAL EVALUATION ----- Cardiac activity present. FHR 143 bpm. movements: visualized.Presentation: cephalic Placenta: No Previa, > 2 cm from internal os, Anterior Umbilical cord: previously studied AMNIOTIC FLUID ASSESSMENT ----- Amount of AF: Mild, Polyhydramnios MVP 8.1 cm. JOHN 28.4 cm. Q1 9.1 cm, Q2 8.1 cm, Q3 4.7 cm, Q4 6.5 cm BIOPHYSICAL PROFILE ----- 2: breathing movements 2: Gross body movements 2: tone 2: Amniotic fluid volume 8/8 Biophysical profile score Interpretation: normal RECOMMENDATION ----- Thank-you for referring your patient to assess growth. Her visit today was scheduled as a remote read scan and therefore I didnot directly discuss the findings of today's ultrasound with the patient.Our nursing team did, however, relay the pertinent results and ongoing care plan. Recommendation/Plan: - Weekly testing until 31st week - Twice weekly testing at 32 weeks - Serial growth US every 4 weeks Return to primary provider for continued care. If you have questions regarding today's evaluation or if we can be offurther service, please contact the [facility]. anomalies may be present but not detected IMPRESSION ----- 1. Mcmahan at 29w 0d gestational age. 2. The amniotic fluid index was 28.4 cm consistent with mildpolyhydramnios. 3. The BPP was 8/8. us Alyce Whitlock MD [facility] US ORDERABLES Edited Res ult - Final documented in this encounter Visit Diagnoses Diagnosis with type 2 diabetes mellitus in second trimester- Primary Polyhydramnios affecting with type 2 diabetes mellitus in second trimester Polyhydramnios affecting with type 2 diabetes mellitus in second trimester Polyhydramnios affecting with type 2 diabetes mellitus in second trimester Polyhydramnios affecting documented in this encounter Additional Health Concerns Active Problems Noted Date Diagnosed Date Patient expresses financial resource strain 03/23 documented as of this encounter Care Teams Salesperson Pianos And Organs Relationship Specialty Start Date End Date No Ref-Primary, Physician PCP - General 02/28/24 07/20/24 No Ref-Primary, Physician 02/28/24 Farrukh Gaspar MD [address], [address] [address] Physician education administrative assistant 02/28/[address] [facility] [place] [address] Certified Driver Examiner Dietitian 03/06/24 Tara Martin, [facility] Lead Growth Hacker 04/11/24 Farrukh Gaspar MD [address], [address] [address] Assigned OBGYN Provider 04/13/24 Padmini Calderon DO [address] [address] Physician education administrative assistant 04/22/24 Miller Garcia MD [address] [address] Assigned OBGYN Provider 06/13/24 documented as of this encounter
--- OUTSIDE RECORDS SUMMARY | 2024-08-29 10:55 | XMS_ITS | Encounter Summary ---
Author Organization [place] Address [address] [place] [address] Care Team Providers Care Aquatic Habitat Biologist Name Role Phone No Ref-Primary, Physician Primary Care Provider No Ref-Primary, Physician Unavailable [phone] Farrukh Gaspar MD Unavailable Kim Doll RD Unavailable Unavailab Tara Barbosa Unavailable Farrukh Gaspar MD Unavailable Padmini Calderon DO Unavailable Miller Garcia MD Unavailable [phone] Encounter Details Date Type Department Care Team (Latest Contact Info) Description 06/13/2024 Travel Social History Tobacco Use Types Packs/Day [...] on file 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 Author Create an action plan to increase financial stability Care Plan Patient expresses financial resource strain No Patt Gautam, [facility] Note: Barriers: Lack of housing Strengths: Engaged in care coordination Patient expressed understanding of goal: YES Action steps to achieve this goal: 1. I will review the resources provided by pharmacy care coordinator 2. I will I will contact my care team with questions, concerns, or support needs. 3. I will use the clinic as a resource, and I understand I can contact my clinic with 14/05 after hours services available. Director Of Scientific Research will remain available as needed. documented as of this encounter Visit Diagnoses Not on filedocumented in this encounter Additional Health Concerns Active Problems Noted Date Diagnosed Date Patient expresses financial resource strain 03/23 documented as of this encounter Care Teams Aquatic Habitat Biologist Relationship Specialty Start Date End Date No Ref-Primary, Physician PCP - General 02/28/24 07/20/24 No Ref-Primary, Physician 02/28/24 Farrukh Gaspar MD [address], [address] [address] Physician time study analyst 02/28/[address] [place] [address] Butt Welder Dietitian 03/06/24 Tara Martin, [facility] Lead Director Of Scientific Research 04/11/24 Farrukh Gaspar MD [address], [address] [address] Assigned OBGYN Provider 04/13/24 Padmini Calderon DO [address] [address] Physician time study analyst 04/22/24 Miller Garcia MD [address] [facility] [address] [place] [address] Assigned OBGYN Provider 06/13/24 documented as of this encounter
--- OUTSIDE RECORDS SUMMARY | 2024-08-29 10:55 | XMS_ITS | Encounter Summary ---
Author Organization [place] Address [address] [place] [address] Care Team Providers Care Theatrical Agent Name Role Phone No Ref-Primary, Physician Primary Care Provider No Ref-Primary, Physician Unavailable Farrukh Gaspar MD Unavailable Kim Doll RD Unavailable Unavailab Tara Barbosa Unavailable Farrukh Gaspar MD Unavailable Padmini Calderon DO Unavailable Miller Garcia MD Unavailable [phone] Reason for Referral * Diagnostic Imaging Ultrasound (Routine) - Pending Review Specialty Diagnoses / Procedures Referred By Contac t Referred To Contact Radiology. Diagnoses with type 2 diabetes mellitus in second trimester Procedures [facility] US Comprehensive Single F/U Dacia Alvarez MD [address] [place] [address] Phone: tel: fax: Referral ID Status Reason Start Date Expiration Date V isits Requested Visits Authorized [id number] Pending Review 06/25/2024 06/25/2025 1 1 * Diagnostic Imaging Ultrasound (Routine) - Pending Review Specialty Diagnoses / Procedures Referred By Contac t Referred To Contact Radiology. Diagnoses with type 2 diabetes mellitus in second trimester Procedures [facility] Single Dacia Alvarez MD [address] [place] [address] Phone: tel: fax: Referral ID Status Reason Start Date Expiration Date V isits Requested Visits Authorized [id number] Pending Review 06/25/2024 06/25/2025 1 1 * Diagnostic Imaging Ultrasound (Routine) - Pending Review Specialty Diagnoses / Procedures Referred By Contac t Referred To Contact Radiology. Diagnoses with type 2 diabetes mellitus in second trimester Procedures [facility] Single Dacia Alvarez MD [address] [place] [address] Phone: tel: fax: Referral ID Status Reason Start Date Expiration Date V isits Requested Visits Authorized [id number] Pending Review 06/25/2024 06/25/2025 1 1 * Diagnostic Imaging Ultrasound (Routine) - Pending Review Specialty Diagnoses / Procedures Referred By Contac t Referred To Contact Radiology. Diagnoses with type 2 diabetes mellitus in second trimester Procedures [facility] Single Dacia Alvarez MD [address] [place] [address] Phone: tel: fax: Referral ID Status Reason Start Date Expiration Date V isits Requested Visits Authorized [id number] Pending Review 06/25/2024 06/25/2025 1 1 * Diagnostic Imaging Ultrasound (Routine) - Pending Review Specialty Diagnoses / Procedures Referred By Contac t Referred To Contact Radiology. Diagnoses with type 2 diabetes mellitus in second trimester Procedures [facility] Single Dacia Alvarez MD [address] [place] [address] Phone: tel: fax: Referral ID Status Reason Start Date Expiration Date V isits Requested Visits Authorized [id number] Pending Review 06/25/2024 06/25/2025 1 1 Reason for Visit * Reason Comments Ultrasound BPP: moderate polyhy dramnios, DM2 Encounter Details Date Type Department Care Team (Late st Contact Info) Description 06/25/2024 4:00 PM CDT Office Visit [facility] [address] [place] [address] Giselle Diallo MD [address] [place] [address] Dacia Alvarez MD [address] [place] [address] with type 2 diabetes mellitus in third trimester (Primary Dx); with type 2 diabetes mellitus in second trimester Social History Tobacco Use [...] on file 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 For a detailed report of the ultrasound examination, please see the ultrasound report whichcan be found under the imaging tab. If you have questions regarding today's evaluation or if we can be of further service, please contact the Maternal- Medicine Center. Dacia Alvarez M.D. Maternal -Medicine Specialist documented in this encounter Nursing Notes * Mila Mata RN - 06/25/2024 4:00 PM CDT Patient presents to [facility] for BPP at 29w0d due to moderate polyhydramnios, DM2. Positive movement. States she met with diabetic ed earlier today and most BS are WNL except for a few outliers. No change in insulin regimen. Denies LOF, vaginal bleeding or cramping/contractions. SBAR given to [facility] MD, see their note in Epic. [...] with 24/7 after hours services available. Medical Leader will remain available as needed. documented as of this encounter Results * [facility] US Comprehensive Single F/U (08/14/2024 8:43 [...] ? Study Date: ??08/14/2024 8:06am Pat. NO: ??[id number] ?Referring ??MD: ESTHER LAURENT Site: ? Journeyman Welder: Sandhya Barrow RDMS : ??1990 ?Age: ?? [...] lb 13 ?oz EFW by ? Hadlock ([id number]) Head / Face / Neck Biometry: Corrections Caseworker ?6.2 ? mm CM ? 6.6 ? mm ANATOMY ----- The following structures appear normal: Head / Neck ? Cranium. Head size. Head shape. Lateral ventricles. Midline falx. Cavum septi pellucidi. Cerebellum. Cisterna magna. Thalami. Face ? Lips. Profile. Nose. Heart / Thorax ?4-chamber view. RVOT view. LVOT view. 2-rjtppz-ozympep view. ? Diaphragm. Abdomen ? Stomach. Kidneys. [...] to triage for evaluation. She has a retail analytics manager appointment immediately following her visit here and [...] as follows: - Chronic hypertension on medications: [id number] - Chronic hypertension on medications requiring ongoing dose escalation/suboptimal control: 96t4r-53b4p If she is diagnosed with superimposed preeclampsia [...] medical record, and communicating with other health director career and/or care coordination. Procedure Note Ilene Alegria MD - 08/14/2024 Comp Follow Up ----- Pat. Name: ROLA MCKEON Study Date: 08/14/2024 8:06am Pat. NO: [id number] Referring MD: ESTHER LAURENT Site: Journeyman Welder: Sandhya Barrow RDMS : 1990 Age: 34 [...] d 09/08/2024 Assigned dating based on ultrasound (), selected on08/07/2024 36w + 1 d 09/10/2024 [...] EFW (lb,oz) 6 lb 13oz EFW by Hadlock([id number]) Head / Face / Neck Biometry: Corrections Caseworker 6.2mm CM 6.6mm ANATOMY ----- The following structures appear normal: Head / Neck Cranium. Head size. Head shape.Lateral ventricles. Midline falx. Cavum septi pellucidi. Cerebellum.Cisterna magna. Thalami. Face Lips. Profile. Nose. Heart / Thorax 4-chamber view. RVOT view. LVOT view.3-nrztlp-nftvoxv view. Diaphragm. Abdomen Stomach. Kidneys. Bladder. Spine [...] as follows: - Chronic hypertension on medications: [id number] - Chronic hypertension on medications requiring ongoing doseescalation/suboptimal control: 07d6n-84r9o If she is diagnosed with superimposed preeclampsia [...] electronic medical record, andcommunicating with other health director career and/or carecoordination. IMPRESSION ----- 1. Mcmahan at 36w 1d gestational age. 2. None of the anomalies commonly detected by ultrasound were evident inthe limited anatomic survey as described above. 3. Growth parameters and estimated weight were appropriate forgestational age. 4. There is mild polyhydramnios with an JOHN of 28cm. 5. The BPP was 05/29. us Dacia TRUONG [facility] US ORDERABLES Edited Re sult - Final * [facility] BPP Single (08/07/2024 3:33 PM CDT) Anatomical Region Laterality Modality Ultrasound 08/07/2024 3:25 PM CDT Impressions 08/07/2024 4:06 PM CDT IMPRESSION ----- 1. Mcmahan at 35w 1d gestational age. 2. Mild polyhydramnios was again noted. 3. The BPP was reassuring. Narrative 08/07/2024 4:06 PM CDT ?BPP ----- Pat. Name: ROLA MCKEON ? Study Date: ??08/07/2024 3:25pm Pat. NO: ??[id number] ?Referring ??MD: ESTHER LAURENT Site: ? Journeyman Welder: Matthew Harding RDMS : ??1990 ?Age: ?? [...] MCKEON Study Date: 08/07/2024 3:25pm Pat. NO: [id number] Referring MD: ESTHER LAURENT Site: Journeyman Welder: Matthew Harding RDMS : 1990 Age: 34 ----- INDICATION [...] BPP was reassuring. us Dacia Alvarez MD [facility] US ORDERABLES Edited Re sult - Final * [facility] BPP Single (08/04/2024 3:57 PM CDT) Anatomical [...] ? Study Date: ??08/04/2024 3:30pm Pat. NO: ??[id number] ?Referring ??MD: ESTHER LAURENT Site: ? Journeyman Welder: Kandice Sorto RDMS : ??1990 ?Age: ?? [...] MCKEON Study Date: 08/04/2024 3:30pm Pat. NO: [id number] Referring MD: ESTHER LAURENT Site: Journeyman Welder: Kandice Sorto RDMS : 1990 Age: 34 [...] volume appears increased and consistent with mildpolyhydramnios. us Dacia Alvarez MD Ct [facility] US ORDERABLES Edited Re sult - Final * [facility] BPP Single (07/24/2024 3:43 PM CDT) Anatomical Region Laterality Modality Ultrasound 07/24/2024 3:22 PM CDT Impressions 07/24/2024 4:17 PM CDT IMPRESSION ----- 1. Mcmahan at 33w 1d gestational age. 2. The amniotic fluid volume appeared normal. 3. The BPP was reassuring. Narrative 07/24/2024 4:17 PM CDT ?BPP ----- Pat. Name: ROLA MCKEON ? Study Date: ??07/24/2024 3:22pm Pat. NO: ??[id number] ?Referring ??MD: ESTHER LAURENT Site: ? Journeyman Welder: Nathalie Harman RDMS : ??1990 ?Age: ?? [...] MCKEON Study Date: 07/24/2024 3:22pm Pat. NO: [id number] Referring MD: ESTHER LAURENT Site: Journeyman Welder: Nathalie Harman RDMS : 1990 Age: 34 [...] BPP was reassuring. us Dacia Alvarez MD [facility] US ORDERABLES Edited Re sult - Final * [facility] Single (07/21/2024 3:47 PM CDT) Anatomical Region Laterality Modality Ultrasound 07/21/2024 3:35 PM CDT Impressions 07/21/2024 4:22 PM CDT IMPRESSION ----- 1. Mcmahan at 32w 5d gestational age. 2. The amniotic fluid volume appeared normal. 3. The BPP was reassuring. Narrative 07/21/2024 4:22 PM CDT ?BPP ----- Pat. Name: ROLA MCKEON ? Study Date: ??07/21/2024 3:35pm Pat. NO: ??[id number] ?Referring ??MD: ESTHER LAURENT Site: ? Journeyman Welder: Noelle Jain RDMS : ??1990 ?Age: ?? [...] MD - 07/21/2024 BPP ----- Pat. Name: ROLA MCKEON Study Date: 07/21/2024 3:35pm Pat. NO: [id number] Referring MD: ESTHER LAURENT Site: Journeyman Welder: Noelle Jain RDMS : 1990 Age: 34 [...] BPP was reassuring. us Dacia Alvarez MD [facility] US ORDERABLES Edited Re sult - Final documented in this encounter Visit Diagnoses Diagnosis with type 2 diabetes mellitus in third trimester- Primary with type 2 diabetes mellitus in second trimester with type 2 diabetes mellitus in second trimester with type 2 diabetes mellitus in second trimester with type 2 diabetes mellitus in second trimester with type 2 diabetes mellitus in second trimester with type 2 diabetes mellitus in second trimester documented in this encounter Additional Health Concerns Active Problems Noted Date Diagnosed Date Patient expresses financial resource strain 03/23 documented as of this encounter Care Teams Theatrical Agent Relationship Specialty Start Date End Date No Ref-Primary, Physician PCP - General 02/28/24 07/20/24 No Ref-Primary, Physician 02/28/24 Farrukh Gaspar MD [address], [address] [address] Physician safety aide 02/28/[address] [place] [address] Housing Director Dietitian 03/06/24 Tara Martin, [facility] Lead Medical Leader 04/11/24 Farrukh Gaspar MD [address], [address] [address] Assigned OBGYN Provider 04/13/24 Padmini Calderon DO [address] [address] Physician safety aide 04/22/24 Miller Garcia MD [address] [place] [address] Assigned OBGYN Provider 06/13/24 documented as of this encounter
--- OUTSIDE RECORDS SUMMARY | 2024-08-29 10:55 | XMS_ITS | Encounter Summary ---
Author Organization [place] Address [address] [place] [address] Care Team Providers Care Pipe Processor Name Role Phone No Ref-Primary, Physician Primary Care Provider No Ref-Primary, Physician Unavailable [phone] Farrukh Gaspar MD Unavailable [phone] Unavailable Unavailab Tara Barbosa Unavailable Farrukh Gaspar MD Unavailable Padmini Calderon DO Unavailable Miller Garcia MD Unavailable [phone] Reason for Visit * Reason Comments RECHECK GDM Encounter Details Date Type Department Care Team (Late st Contact Info) Description 06/25/2024 11:30 AM CDT Virtual Visit [place] [id number] [facility] [address] [place] [id number] Teagan Mark, DOUGLAS [address] [facility] [address] [place], [place] [id number] Insulin controlled gestational diabetes mellitus (GDM) in second trimester (Primary Dx) Social History Tobacco Use [...] on file 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 Insulin controlled gestational diabetes mellitus (GDM) in second trimester HPI Rola Mckeon is a very pleasant 33 year old old female who presents for GESTATIONAL Diabetes Mellitus. She is currently 29 w . Due date is 09/10/24 Diagnosed with GDM based on anOGTT. She hashad GDM in prior pregnancies. Current carbohydrate intake:consistent with recommendations of 30g-60g-60g. I have reviewed her blood glucose logs and note that the: Fasting readings are:above range on current regimen Postprandial readings are:above range on current regimen Current Levemir dose: 50 Current Prandial insulin: 10 units with extra CHO Blood glucose logs/meter brought in and data reviewed and incorporated into decision-making. Planned delivery at: OBN: [facility] Therapy/Interventions in the past: She has been seen by the Power Machine Operator- and has received instruction on carbohydrate counting and consistency. Records from referring provider and other sources have also been reviewed and incorporated into decision-making. TODAY: Rola is seen today in follow-up for GDM. We are joined by MICHELLE [place]. Pt provides BG today and she continues to do a good job with her management. She is reporting today that baby is measuring 3.5 weeks ahead and has some polyhydramnios. They are watching. Baby is moving, a lot, and she is having no swelling. Blood Glucose Data: 06/18/24 Fasting 89 breakfast 135 lunch 119 dinner 132 06/19/24 Fasting 88 breakfast 144 lunch 131 dinner 147 06/20/24 Fasting 92 breakfast 87 lunch 132 dinner 106 06/21/24 Fasting 81 breakfast 104 lunch 117 dinner 93 06/22/24 Fasting 83 breakfast lunch 143 dinner 119 06/23/2024 Fasting 92 breakfast 133 lunch 110 dinner 116 06/24/2024 Fasting 93 breakfast 155 but forgot to take insulin lunch 95 dinner 129 06/25/2024 Fasting 79 breakfast 107 Past Medical History Patient Active Problem List Diagnosis Asthma Gastroesophageal reflux Migraine Supervision of with other poor reproductive or obstetric history, second trimester Insulin controlled gestational diabetes mellitus (GDM) in second trimester Previous delivery, antepartum condition or complication [...] breakfast, 10 units with non-egg meals -Novolog 0 units with lunch -Novolog 4 units with dinner -Increase by 2 units every 2 days to keep 1 hour after meal blood glucose less than 140mg/dL We reviewed glucose goals of fasting blood glucose <95 mg/dL and 1 hour post prandial blood glucose of <140 mg/dL. Monitor blood sugar 4 times daily: Fasting and 1 hour after each meal. Contact this clinic [phone] if blood glucose is not within the above- mentioned goals. We discussed the importance of excellent glycemic control during to limit complications such as macrosomia, shoulder dystocia, hypoglycemia and hyperbilirubinemia. I have discussed the patient's increased risk of recurrent GDM and/or development of type 2 diabetes later inlife. Follow-up in 2 weeks. Teagan Mark NP 06/25/2024 Lab Results No results found for: HGBA1C, [...] expresses financial resource strain No Patt Gautam, [facility] Note: Barriers: Lack of housing Strengths: Engaged in care coordination Patient expressed understanding of goal: YES Action steps to achieve this goal: 1. I will review the resources provided by critical care registered nurse 2. I will I will contact my care team with questions, concerns, or support needs. 3. I will use the clinic as a resource, and I understand I can contact my clinic with 24/7 after hours services available. Postdoctoral Fellow will remain available as needed. documented as of this encounter Visit Diagnoses Diagnosis Insulin controlled gestational diabetes mellitus (GDM) in second trimester- Primary documented in this encounter Additional Health Concerns Active Problems Noted Date Diagnosed Date Patient expresses financial resource strain 03/23 documented as of this encounter Care Teams Pipe Processor Relationship Specialty Start Date End Date No Ref-Primary, Physician PCP - General 02/28/24 07/20/24 No Ref-Primary, Physician 02/28/24 Farrukh Gaspar MD [address], [address] [address] Physician lacquer sizer 02/28/[address] [facility] [place] [address] Power Machine Operator Dietitian 03/06/24 Tara Martin, [facility] Lead Postdoctoral Fellow 04/11/24 Farrukh Gaspar MD [address], [address] [address] Assigned OBGYN Provider 04/13/24 Padmini Calderon DO [address] [address] Physician lacquer sizer 04/22/24 Miller Garcia MD [address] [address] Assigned OBGYN Provider 06/13/24 documented as of this encounter
--- OUTSIDE RECORDS SUMMARY | 2024-08-29 10:55 | XMS_ITS | Encounter Summary ---
Author Organization [place] Address [facility] [place] [address] Care Team Providers Care Perishable Fruit Inspector Name Role Phone No Ref-Primary, Physician Primary Care Provider No Ref-Primary, Physician Unavailable Farrukh Gaspar MD Unavailable Kim Doll RD Unavailable Unavailab Tara Barbosa Unavailable Farrukh Gaspar MD Unavailable Padmini Calderon DO Unavailable Miller Garcia MD Unavailable [phone] Reason for Visit * Reason Comments Ultrasound BPP: Type 2 DM, mild polyhydramnios Encounter Details Date Type Department Care Team (Late st Contact Info) Description 07/04/2024 4:00 PM CDT Office Visit [facility] [address] [place] [address] Jana Osei MD [address] [place] [address] [address] [place] [address] Insulin controlled gestational diabetes mellitus [...] on file 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 Jana Osei MD Maternal Medicine documented in this encounter Nursing Notes * Nasreen Dumont RN - 07/04/2024 4:00 PM CDT Patient presents to [facility] for BPP at 30w2d due to Type 2 DM and mild polyhydramnios. Positive movement. Patient states blood sugar levels are largely within normal limits. Denies LOF, vaginal bleeding or cramping/contractions. SBAR given to [facility] MD, see their note in Epic. documented in this encounter Plan of Treatment Not on file documented as of this encounter Goals Goal Patient Goal Type Associated Problems Recent Progress Patient-Stated? Author Create an action plan to increase financial stability Care Plan Patient expresses financial resource strain No Patt Gautam, [facility] Note: Barriers: Lack of housing Strengths: Engaged in care coordination Patient expressed understanding of goal: YES Action steps to achieve this goal: 1. I will review the resources provided by medicare sales executive 2. I will I will contact my care team with questions, concerns, or support needs. 3. I will use the clinic as a resource, and I understand I can contact my clinic with 24/7 after hours services available. Graphic Coordinator will remain available as needed. documented as of this encounter Visit Diagnoses Diagnosis Insulin controlled gestational diabetes mellitus (GDM) in third trimester- Primary documented in this encounter Additional Health Concerns Active Problems Noted Date Diagnosed Date Patient expresses financial resource strain 03/23 documented as of this encounter Care Teams Perishable Fruit Inspector Relationship Specialty Start Date End Date No Ref-Primary, Physician PCP - General 02/28/24 07/20/24 No Ref-Primary, Physician 02/28/24 Farrukh Gaspar MD [address], [address] [address] Physician supervisor general 02/28/[address] [facility] [place] [address] Educational Therapy Teacher Dietitian 03/06/24 Tara Martin, [facility] Lead Graphic Coordinator 04/11/24 Farrukh Gaspar MD [address], [address] [address] Assigned OBGYN Provider 04/13/24 Padmini Calderon DO [address] [address] Physician supervisor general 04/22/24 Miller Garcia MD [address] [address] Assigned OBGYN Provider 06/13/24 documented as of this encounter
--- OUTSIDE RECORDS SUMMARY | 2024-08-29 10:55 | XMS_ITS | Encounter Summary ---
Author Organization [place] Address [address] [place] [address] Care Team Providers Care Legal Compliance Officer Name Role Phone No Ref-Primary, Physician Primary Care Provider No Ref-Primary, Physician Unavailable [phone] Farrukh Gaspar MD Unavailable Kim Doll RD Unavailable Unavailab Tara Barbosa Unavailable Farrukh Gaspar MD Unavailable Padmini Calderon DO Unavailable Miller Garcia MD Unavailable [phone] Encounter Details Date Type Department Care Team (Latest Contact Info) Description 07/04/2024 Travel Social History Tobacco Use Types Packs/Day [...] on file 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 Author Create an action plan to increase financial stability Care Plan Patient expresses financial resource strain No Patt Gautam, [facility] Note: Barriers: Lack of housing Strengths: Engaged in care coordination Patient expressed understanding of goal: YES Action steps to achieve this goal: 1. I will review the resources provided by health care legal assistant 2. I will I will contact my care team with questions, concerns, or support needs. 3. I will use the clinic as a resource, and I understand I can contact my clinic with 14/05 after hours services available. Class B Driver will remain available as needed. documented as of this encounter Visit Diagnoses Not on filedocumented in this encounter Additional Health Concerns Active Problems Noted Date Diagnosed Date Patient expresses financial resource strain 03/23 documented as of this encounter Care Teams Legal Compliance Officer Relationship Specialty Start Date End Date No Ref-Primary, Physician PCP - General 02/28/24 07/20/24 No Ref-Primary, Physician 02/28/24 Farrukh Gaspar MD [address], [address] [address] Physician direct marketing intern 02/28/[address] [place] [address] Advisor Advocate Angel Co Founder Dietitian 03/06/24 Tara Martin, [facility] Lead Class B Driver 04/11/24 Farrukh Gaspar MD [address], [address] [address] Assigned OBGYN Provider 04/13/24 Padmini Calderon DO [address] [address] Physician direct marketing intern 04/22/24 Miller Garcia MD [address] [facility] [address] [place] [address] Assigned OBGYN Provider 06/13/24 documented as of this encounter
--- OUTSIDE RECORDS SUMMARY | 2024-08-29 10:55 | XMS_ITS | Encounter Summary ---
Author Organization [place] Address [address] [place] [address] Care Team Providers Care Tram Inspector Name Role Phone No Ref-Primary, Physician Primary Care Provider No Ref-Primary, Physician Unavailable [phone] Farrukh Gaspar MD Unavailable Kim Doll RD Unavailable Unavailab Tara Barbosa Unavailable [phone] Farrukh Gaspar MD Unavailable Padmini Calderon DO Unavailable Miller Garcia MD Unavailable [phone] Encounter Details Date Type Department Care Team (Latest Contact Info) Description 06/15/2024 Travel Social History Tobacco Use Types Packs/Day [...] on file 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 Author Create an action plan to increase financial stability Care Plan Patient expresses financial resource strain No Patt Gautam, [facility] Note: Barriers: Lack of housing Strengths: [...] clinic with 14/05 after hours services available. Optical Instruments Supervisor will remain available as needed. documented as of this encounter Visit Diagnoses Not on filedocumented in this encounter Additional Health Concerns Active Problems Noted Date Diagnosed Date Patient expresses financial resource strain 03/23 documented as of this encounter Care Teams Tram Inspector Relationship Specialty Start Date End Date No Ref-Primary, Physician PCP - General 02/28/24 07/20/24 No Ref-Primary, Physician 02/28/24 Farurkh Gaspar MD [address], [address] [address] Physician construction supervisor 02/28/[address] [place] [address] Lawnmower Repair Mechanic Dietitian 03/06/24 Tara Martin, [facility] Lead Optical Instruments Supervisor 04/11/24 Farrukh Gaspar MD [address], [address] [address] Assigned OBGYN Provider 04/13/24 Padmini Calderon DO [address] [address] Physician construction supervisor 04/22/24 Miller Garcia MD [address] [facility] [address] [place] [address] Assigned OBGYN Provider 06/13/24 documented as of this encounter
--- OUTSIDE RECORDS SUMMARY | 2024-08-29 10:55 | XMS_ITS | Encounter Summary ---
Author Organization [place] Address [facility] [place] [address] Care Team Providers Care Bridge Club Manager Name Role Phone No Ref-Primary, Physician Primary Care Provider No Ref-Primary, Physician Unavailable Farrukh Gaspar MD Unavailable [phone] Unavailable Unavailab Tara BarbosaSW Unavailable Farrukh Gaspar MD Unavailable Padmini Calderon DO Unavailable Miller Garcia MD Unavailable [phone] Reason for Referral * Diagnostic Imaging Ultrasound (Routine) - Pending Review Specialty Diagnoses / Procedures Referred By Contac t Referred To Contact Radiology. Diagnoses with type 2 diabetes mellitus in second trimester Polyhydramnios affecting Procedures [facility] BPP Single Alyce Whitlock MD [address] [facility] [address] [place] [address] Phone: tel: fax: Referral ID Status Reason Start Date Expiration Date V isits Requested Visits Authorized [id number] Pending Review 06/20/2024 06/20/2025 1 1 Reason for Visit * Diagnostic Imaging Ultrasound (Routine) - Pending Review Specialty Diagnoses / Procedures Referred By Kalyani t Referred To Contact Radiology. Diagnoses with type 2 diabetes mellitus in second trimester Polyhydramnios affecting Procedures M[facility] BPP Single Alyce Whitlock MD [address] [place] [address] Phone: tel: fax: Referral ID Status Reason Start Date Expiration Date V isits Requested Visits Authorized [id number] Pending Review 06/20/2024 06/20/2025 1 1 Encounter Details Date Type Department Care Team (Latest Contact Info) Description 06/25/2024 3:25 PM CDT - 06/25/2024 11:59 PM CDT Hospital Encounter 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 I will I will contact my care team with questions, concerns, or support needs. 3. I will use the clinic as a resource, and I understand I can contact my clinic with 24/7 after hours services available. Night Club Manager will remain available as needed. documented as of this encounter Procedures Procedure Name Priority Date/Time Associated Diagnosis Comments [facility] BPP SINGLE Routine 06/25/2024 3:42 PM CDT with type 2 diabetes mellitus in second trimester Polyhydramnios affecting documented in this encounter Results * [facility] BPP Single (06/25/2024 3:42 PM CDT) Anatomical Region Laterality Modality Ultrasound 06/25/2024 3:36 PM CDT Impressions 06/25/2024 6:18 PM CDT IMPRESSION ----- 1. Mcmahan at 29w 0d gestational age. 2. The amniotic fluid index was 28.4 cm consistent with mild polyhydramnios. 3. The BPP was 88. Narrative 06/25/2024 6:18 PM CDT ?BPP ----- Pat. Name: ROLA MCKEON ? Study Date: ??06/25/2024 3:36pm Pat. NO: ??[id number] ?Referring ??MD: ESTHER LAURENT Site: ? Corrugator: Kandice Sorto RDMS : ??1990 ?Age: ?? [...] care plan. Recommendation/Plan: - Weekly testing until week - Twice weekly testing at 31 [...] MCKEON Study Date: 06/25/2024 3:36pm Pat. NO: [id number] Referring MD: ESTHER LAURENT Site: Corrugator: Kandice Sorto RDMS : 1990 Age: 34 [...] with mildpolyhydramnios. 3. The BPP was 8/8. Alyce Whitlock MD [facility] ORDERABLES Edited Res ult - Final documented in this encounter Visit Diagnoses Diagnosis with type 2 diabetes mellitus in second trimester Polyhydramnios affecting documented in this encounter Additional Health Concerns Active Problems Noted Date Diagnosed Date Patient expresses financial resource strain 03/23 documented as of this encounter Care Teams Bridge Club Manager Relationship Specialty Start Date End Date No Ref-Primary, Physician PCP - General 02/28/24 07/20/24 No Ref-Primary, Physician 02/28/24 Farrukh Gaspar MD [address], [address] [address] Physician business planning director 02/28/[address] [facility] [place] [address] Seo Manager Dietitian 03/06/24 Tara Martin, [facility] Lead Night Club Manager 04/11/24 Farrukh Gaspar MD [address], [address] [address] Assigned OBGYN Provider 04/13/24 Padmini Calderon DO [address] [address] Physician business planning director 04/22/24 Miller Garcia MD [address] [address] Assigned OBGYN Provider 06/13/24 documented as of this encounter
--- OUTSIDE RECORDS SUMMARY | 2024-08-29 10:56 | XMS_ITS ---
Author Organization [place] Address [address] [place] [address] Care Team Providers Care Watch Adjuster Name Role Phone No Ref-Primary, Physician Unavailable Farrukh Gaspar MD Unavailable Kim Doll RD Unavailable Unavailab Tara Barbosa Unavailable [phone] Farrukh Gaspar MD Unavailable Padmini Calderon DO Unavailable [phone] Padmini Calderon DO Unavailable [phone] Lakesha Padron APRN Primary Care Provider [phone] Diabetes Self-Management Education Status:Identified (Enrolling) Start date:02/29/2024 Continued Care and Services Coordination
--- OUTSIDE RECORDS SUMMARY | 2024-08-29 10:56 | XMS_ITS | Encounter Summary ---
Author Organization [place] Address [address] [place] [address] Care Team Providers Care Programming Intern Name Role Phone No Ref-Primary, Physician Primary Care Provider No Ref-Primary, Physician Unavailable Farrukh Gaspar MD Unavailable Kim Doll RD Unavailable Unavailab Tara Barbosa Unavailable Farrukh Gaspar MD Unavailable Padmini Calderon DO Unavailable Reason for Visit * Reason Comments RECHECK GDM Encounter Details Date Type Department Care Team (Late st Contact Info) Description 06/11/2024 11:30 AM CDT Virtual Visit [address] [place] [phone] Teagan Mark NP [address] [facility] [address] [place] [address] Insulin controlled gestational diabetes mellitus (GDM) in [...] on file 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 Insulin controlled gestational diabetes mellitus (GDM) in second trimester HPI Rola Mckeon is a very pleasant 33 year old old female who presents for GESTATIONAL Diabetes Mellitus. She is currently 27 w . Due date is 09/10/24 Diagnosed [...] and incorporated into decision-making. [facility] Therapy/Interventions in the past: She has been seen by the Community Outreach Coordinator- and has received instruction on carbohydrate counting and consistency. Records from referring provider and other sources have also been reviewed and incorporated into decision-making. TODAY: Rola is seen via Video Visit in follow-up for GDM. We were just in touch 2 days ago, and she voiced concerns that her FBS were high I instructed her to increase her dose to 50 and this morning she had an 87. She had a couple of postprandial elevations that were due to potatoes in various forms.She went to ED recently as well, as she was feeling dizzy. She has a hx of Pre-eclampsia, which forher, provided the same symptoms, so she wanted to rule this out. No sinister findings, fortunately.Baby is moving appropriately and she is having no swelling at present. Blood Glucose Numbers: 06-02-24 Fasting 100 breakfast 145 lunch 95 dinner 121 06-03-24 Fasting 96 breakfast 103 lunch 140 dinner 121 06-04-24 Fasting 91 breakfast 139 lunch 136 dinner 150 06/05/24 Fasting 98 breakfast 126 lunch 133 dinner 125 06/06/24 Fasting 98 breakfast 106 lunch 11 dinner 106 06/07/24 Fasting 104 breakfast 164 lunch 168 dinner 104 06/08/24 Fasting 100 breakfast 106 lunch 119 dinner 154 06/09/24 Fasting 103 breakfast 150 Past Medical History Patient Active Problem List [...] 11/28/2023 Wt Readings from Last 3 Encounters: 05/14/24 70.8 kg (156 lb) 04/10/24 70.1 kg (154 lb 8 oz) 04/02/24 70.5 kg (155 lb 8 oz) Physical Exam Constitutional: Well [...] hour after each meal. Contact this clinic [phone] if blood glucose is not within the above- mentioned goals. We discussed the importance of excellent glycemic control during to limit complications such as macrosomia, shoulder dystocia, hypoglycemia and hyperbilirubinemia. I have discussed the patient's increased risk of recurrent GDM and/or development of type 2 diabetes later inlife. Follow-up in 2 weeks. Teagan Mark NP 06/11/2024 Lab Results No results found for: HGBA1C, CREATININE, MICROALBUR No results found for: CHOL, HDL, TRIG, CHOLHDL @LASTLFT@ Current Medications Virtual Visit Details Type of service: Video Visit Video Start Time: 1130 Video End Time: 1150 Originating Location (pt. Location): Home Distant Location (provider location): Off-site Platform used for Video Visit: [employer] documented in this encounter Plan of Treatment Not on file documented as of this encounter Goals Goal Patient Goal Type Associated Problems Recent Progress Patient-Stated? Author Create an action plan to increase financial stability Care Plan Patient expresses financial resource strain No Patt Gautam, [facility] Note: Barriers: Lack of housing Strengths: Engaged in care coordination Patient expressed understanding of goal: YES Action steps to achieve this goal: 1. I will review the resources provided by home visit field care manager 2. I will I will contact my care team with questions, concerns, or support needs. 3. I will use the clinic as a resource, and I understand I can contact my clinic with 24/7 after hours services available. Parking Lot Laborer will remain available as needed. documented as of this encounter Visit Diagnoses Diagnosis Insulin controlled gestational diabetes mellitus (GDM) in second trimester- Primary documented in this encounter Additional Health Concerns Active Problems Noted Date Diagnosed Date Patient expresses financial resource strain 03/23 documented as of this encounter Care Teams Programming Intern Relationship Specialty Start Date End Date No Ref-Primary, Physician PCP - General 02/28/24 07/20/24 No Ref-Primary, Physician 02/28/24 Farrukh Gaspar MD [address], [address] [address] Physician customer support representative 02/28/[address] [facility] [place] [address] Community Outreach Coordinator Dietitian 03/06/24 [facility] Parking Lot Laborer 04/11/24 Farrukh Gaspar MD [address], [address] [address] Assigned OBGYN Provider 04/13/24 Padmini Calderon DO [address] [address] Physician customer support representative 04/22/24 documented as of this encounter
--- OUTSIDE RECORDS SUMMARY | 2024-08-29 10:56 | XMS_ITS | Encounter Summary ---
Author Organization [place] Address [address] [place] [address] Care Team Providers Care Financial Administrator Name Role Phone No Ref-Primary, Physician Primary Care Provider No Ref-Primary, Physician Unavailable [phone] Farrukh Gaspar MD Unavailable [phone] Unavailable Unavailab Wilma Cortés CHW Unavailable [phone] Tara Martin COOK HELPER JUICE Unavailable Patt Gautam COOK HELPER JUICE Unavailable [phone] Farrukh Gaspar MD Unavailable Padmini Calderon DO Unavailable [phone] Simran Martin CHW Unavailable Unavailable Miller Garcia MD Unavailable [phone] Padmini Calderon DO Unavailable Lakesha Padron APRN Primary Care Provider [phone] Reason for Visit * Reason Onset Date Comments Appointment 04/14/2024 Encounter Details Date Type Department Care Team (Late st Contact Info) Description 04/14/2024 Telephone [facility] [address] [facility] [address] [place] [address] Farrukh Gaspar MD [address], [address] [place] [address] Appointment Social History Tobacco Use Types Packs/Day Years Used Date Smoking Tobacco: Never Smokeless Tobacco: Never Alcohol Use Standard Drinks/Week Comments Never 0 (1 standard drink = 0.6 oz pur e alcohol) PHQ-2 Answer Date Recorded PHQ-2 Score 0 2024 Adolescent Education Answer Date Record ed Getting School Help Needed Not on file 02/27 Comments Yes Sex and Gender Information Value Date Recorded Sex Assigned at Not on file 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 Pt doesn't feel provider is a good fit for her and is wanting to see Yumiko moving forward for . Ranjiths first available isnt till 05/30 which is past needed time frame. Please advise Action Taken: Message routed to: Other: DANIEL VELASCOGYCierra Travel Screening: Not Applicable documented in this encounter Plan of Treatment Not on file documented as of this encounter Goals Goal Patient Goal Type Associated Problems Recent Progress Patient-Stated? Author Create an action plan to increase financial stability Care Plan Patient expresses financial resource strain No Patt Gautam, [facility] Note: Barriers: Lack of housing Strengths: Engaged in care coordination Patient expressed understanding of goal: YES Action steps to achieve this goal: 1. I will review the resources provided by caregivers non medical 2. I will I will contact my care team with questions, concerns, or support needs. 3. I will use the clinic as a resource, and I understand I can contact my clinic with 24/7 after hours services available. Die Casting Machine Maintainer will remain available as needed. documented as of this encounter Visit Diagnoses Not on filedocumented in this encounter Additional Health Concerns Active Problems Noted Date Diagnosed Date Patient expresses financial resource strain 03/23 documented as of this encounter Care Teams Financial Administrator Relationship Specialty Start Date End Date No Ref-Primary, Physician PCP - General 02/28/24 07/20/24 Lakesha Padron APRN [facility] [address] [place] [address] PCP - General freight associate 07/21/24 No Ref-Primary, Physician 02/28/24 Farrukh Gaspar MD [address], [address] [address] Physician freight associate 02/28/[address] [facility] [place] [address] Printing Screen Assembler Dietitian 03/06/24 Wilma Yu W Community Health Worker 04/11/2405/08 Tara Martin, [facility] Lead Die Casting Machine Maintainer 04/11/24 Patt Gautam, [facility] Lead Die Casting Machine Maintainer 04/11/24 4 Farrukh Gaspar MD [address], [address] [address] Assigned OBGYN Provider 04/13/24 Padmini Calderon DO [address] [address] Physician freight associate 04/22/24 Simran Martin Jose Antonio Community Health Worker 05/08/2405/13 Miller Garcia MD [address] [address] Assigned OBGYN Provider 06/13/24 Padmini Calderon DO [address] [address] Assigned OBGYN Provider 07/14/24 documented as of this encounter
--- OUTSIDE RECORDS SUMMARY | 2024-08-29 10:56 | XMS_ITS | Encounter Summary ---
Author Organization [place] Address [address] [place] [address]. [place] [address] Care Team Providers Care Director Of Community Education Name Role Phone No Ref-Primary, Physician Primary Care Provider No Ref-Primary, Physician Unavailable [phone] Farrukh Gaspar MD Unavailable [phone] Unavailable Unavailab Wilma Cortés CHW Unavailable [phone] Tara Martin CERTIFIED NURSE MIDWIFE Unavailable Patt Gautam CERTIFIED NURSE MIDWIFE Unavailable Farrukh Gaspar MD Unavailable [phone] Padmini Calderon DO Unavailable [phone] Simran Martin CHW Unavailable Unavailable Miller Garcia MD Unavailable [phone] Padmini Calderon DO Unavailable Lakesha Padron APRN Primary Care Provider [phone] Encounter Details Date Type Department Care Team (Late st Contact Info) Description 04/13/2024 MyC Medical Advice [place] [id number] [facility] [place] [phone] [address] [facility] [address] Social History Tobacco Use Types Packs/Day Years [...] on file 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 Gender Identity Not on file Sexual Orientation Not on file documented as of this encounter Plan of Treatment Not on file documented as of this encounter Visit Diagnoses Not on filedocumented in this encounter Care Teams Director Of Community Education Relationship Specialty Start Date End Date No Ref-Primary, Physician PCP - General 02/28/24 07/20/24 Lakesha Padron APRN CNM [address] [place] [address] PCP - General oiler and greaser 07/21/24 No Ref-Primary, Physician 02/28/24 Farrukh Gaspar MD [address] [address] Physician oiler and greaser 02/28/[address] [facility] [place] [address] Mine Inspector Dietitian 03/06/24 Wilma Yu Jose Antonio Community Health Worker 04/11/2405/08 Tara Martin, [facility] Lead Professional Services Consultant 04/11/24 Patt Gautam [facility] Lead Professional Services Consultant 04/11/24 4 Farrukh Gaspar MD [address] [address] Assigned OBGYN Provider 04/13/24 Padmini Calderon DO [address] [address] Physician oiler and greaser 04/22/24 Simran Martin, W Community Health Worker 05/08/2405/13 Miller Garcia MD [address] [address] Assigned OBGYN Provider 06/13/24 Padmini Calderon DO [address] [address] Assigned OBGYN Provider 07/14/24 documented as of this encounter
--- OUTSIDE RECORDS SUMMARY | 2024-08-29 10:56 | XMS_ITS | Encounter Summary ---
Author Organization [facility] Address [address] [place] [address] Care Team Providers Care Strap Stitcher Name Role Phone No Ref-Primary, Physician Primary Care Provider No Ref-Primary, Physician Unavailable [phone] Farrukh Gaspar MD Unavailable Kim Doll RD Unavailable Unavailab Tara Barbosa Unavailable Farrukh Gaspar MD Unavailable [phone] Padmini Calderon DO Unavailable [phone] Reason for Visit * Reason Comments Rule Out Pre-eclampsia Encounter Details Date Type Department Care Team (Late st Contact Info) Description 05/28/2024 7:52 PM CDT - 05/28/2024 9:45 PM CDT Hospital Encounter [facility] [address] [place] [address] Obinna Brown MD [address] [place] [address] Discharge Disposition: Home or Self Care Social [...] on file 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 Gender Identity Not on file Sexual Orientation Not on file documented as of this encounter Last Filed Vital Signs Vital Sign Reading Time Taken Comments Blood Pressure 137/82 05/28/2024 8:15 PM CDT Pulse - - Temperature 36.9 ??C (98.5 ??F) 05/28/2024 8:15 PM CD T Respiratory Rate 16 05/28/2024 8:15 PM CDT Oxygen Saturation - - Inhaled Oxygen Concentration - - Weight - - Height - - Body Mass Index - - documented in this encounter Discharge Instructions * Discharge Instructions* Kennedi Amaro RN - 05/28/2024 9:19 PM CDT * Attachments The following attachments cannot be sent through Care Everywhere. * : When to Call (After 20 Weeks): General Info (Burundian) documented in this encounter Medications at Time [...] albuterol (PROVENTIL HFA) 108 (90 BASE) MCG/ACT inhalerIndication s:Cough Inhale 2 puffs into the lungs every 6 hours. 1 Inhaler 0 05/02/2013 4 aspirin 81 MG EC tablet Take 81 mg by mouth daily 4 etonogestrel (IMPLANON) 68 MG IMPL 1 each by Subdermal route once 01/14/2013 4 famotidine (PEPCID) 20 MG tablet Take [...] 2 04/16/2024 4 metFORMIN (GLUCOPHAGE) 500 MG tabletIndications :Insulin controlled gestational diabetes mellitus (GDM) in second trimester Take 1 tablet (500 mg) by mouth 2 times daily (with meals) 60 tablet 3 04/08/2024 4 metoclopramide (REGLAN) 5 MG tablet Take 5 mg by mouth 2 times daily as needed 4 omeprazole (PRILOSEC) [address] capsuleIndication s:Heartburn during in second trimester Take 1 capsule (10 mg) by mouth daily 60 capsule 2 2024 4 oxymetazoline (AFRIN NASAL SPRAY) 0.05 % nasal sprayIndications: Acute sinusitis with symptoms > 10 days [place] 2-3 sprays into both nostrils 2 times daily as needed for congestion (for 3 days) 1 Bottle 0 07/02/2015 4 polyethylene glycol (MIRALAX) 17 GM/Dose powderIndications :Constipation during in second trimester Take 17 g (1 Capful) by mouth daily 510 g 3 2024 4 Qpbwnidd-Jpi-Jx-F A ( 1 + IRON OR) 4 documented as of this encounter Miscellaneous Notes * Plan of Care - Kennedi Amaro RN - 05/28/2024 9:25 PM CDT Data: Patient assessed in the Birthplace for nausea and vomiting and headache/blurry vision . Cervical exam not examined. Membranes intact. Contractions none. Action: Presumed adequate oxygenation documented (see flow record). Discharge instructions reviewed. Patient instructed to report change in movement, vaginal leaking of fluid or bleeding,abdominal pain, or any concerns related to the to her nurse/physician. Response: Orders to discharge home per Obinna Brown. Patient verbalized understanding of education and verbalized agreement with plan. Discharged to home at 2124. * Provider Notification - Kennedi Amaro RN - 05/28/2024 9:17 PM CDT 05/28/242116 Provider Notification Provider Name/Title Dr. Brown Method of Notification Phone Reviewed labs with MD. All WDL. Orders to discharge home. * Provider Notification - Kennedi Amaro RN - 05/28/2024 8:36 PM CDT 05/28/242035 Provider Notification Provider Name/Title Dr. Brown Method of Notification Phone Request Evaluate - Remote Notification Reason Patient Arrived MD notified of patient arrival. at 25 weeks, here for HANSON, blurry vision, N/V. MD reviewed patient's and is aware of medical history. Patient reports having a headache for the past 3 days, N/V today and blurry vision occasionally throughout the day. Denies LOF, vaginal bleeding, contractions & reports movement. BP 137/82. FHR moderate and appropriate for gestational age & no contractions on toco. Orders received for CBC & CMP. Will update with results. * Plan of Care - Kennedi Amaro RN - 05/28/2024 8:05 PM CDT Data: Patient presented to Birthplace: 05/28/2024 7:52 PM. Reason for maternal/ assessment is nausea and vomiting & headache/blurry vision. Patient reports having a headache for the past 3 days, black blurry spots in her vision occasionally throughout the day today and N/V. Patient is a . record reviewed. has been complicated by gestational diabetes, insulin controlled vs type 2, hx x1 & pre-e, aortic dilation, delivery x2, aortic and pulmonary valve regurgitation, presumed CHTN, echogenic bowel and anx/depression. Gestational Age 25w0d. VSS. movement active. Patient denies uterine contractions, leaking of vaginal fluid/rupture of membranes, vaginal bleeding, abdominal pain, pelvic pressure, epigastric orURQ pain, significant edema. Support person is present. Action: Verbal consent for EFM. Triage assessment completed. Bill of rights reviewed. Response: Patient verbalized agreement with plan. Will contact Dr Obinna Brown with update and for further orders. documented in this encounter Plan of Treatment Not on file documented as of this encounter Goals Goal Patient Goal Type Associated Problems Recent Progress Patient-Stated? Author Create an action plan to increase financial stability Care Plan Patient expresses financial resource strain No Patt Gautam, [facility] Note: Barriers: Lack of housing Strengths: Engaged in care coordination Patient expressed understanding of goal: YES Action steps to achieve this goal: 1. I will review the resources provided by care team coordinator scheduler 2. I will I will contact my care team with questions, concerns, or support needs. 3. I will use the clinic as a resource, and I understand I can contact my clinic with 24/7 after hours services available. Paginator will remain available as needed. documented as of this encounter Procedures Procedure Name Priority Date/Time Associated Diagnosis Comments COMPREHENSIVE METABOLIC PANEL STAT 05/28/2024 8:45 PM CDT CBC WITH PLATELETS STAT 05/28/2024 8: 45 PM CDT documented in this encounter Results * (ABNORMAL) Comprehensive metabolic panel (05/28/2024 8:45 PM CDT) Sodium 135 135 - 145 mmol/L 05/28/2024 9:09 PM CDT [facility] Potassium 3.6 3.4 - 5.3 mmol/L 05/28/2024 9:09 PM CDT [facility] Carbon Dioxide (CO2) 21(L) 22 - 29 mmol/L 05/28/2024 9:09 PM CDT [facility] Anion Gap 11 7 - 15 mmol/L 05/28/2024 9:09 PM CDT [facility] Urea Nitrogen 5.8(L) 6.0 - 20.0 mg/dL 05/28/2024 9:09 PM CDT [facility] Creatinine 0.48(L) 0.51 - 0.95 mg/dL 05/28/2024 9:09 PM CDT [facility] GFR Estimate >90 >60 mL/min/1.7 3m2 05/28/2024 9:09 PM CDT [facility] Comment:eGFR calculated usin 2020 CKD-EPI equation. Calcium 8.9 8.8 - 10.4 mg/dL 05/28/2024 9:09 PM CDT [facility] Comment:Reference intervals for this test were updated on 05/06/2024 to reflect our healthy population more accurately. There may be differences in the flagging of prior results with similar values performed with this method. Those prior results can be interpreted in the context of the updated reference intervals. Chloride 103 98 - 107 mmol/L 05/28/2024 9:09 PM CDT [facility] Glucose 91 70 - 99 mg/dL 05/28/2024 9:09 PM CDT [facility] Alkaline Phosphatase 56 40 - 150 U/L 05/28/2024 9:09 PM CDT [facility] AST 6 0 - 45 U/L 05/28/2024 9:09 PM CDT [facility] ALT <5 0 - 50 U/L 05/28/2024 9:09 PM CDT [facility] Protein Total 6.5 6.4 - 8.3 g/dL 05/28/2024 9:09 PM CDT [facility] Albumin 3.6 3.5 - 5.2 g/dL 05/28/2024 9:09 PM CDT [facility] Bilirubin Total 0.6 <=1.2 mg/dL 05/28/2024 9:09 PM CDT [facility] Blood STRUCTURE OF RIGHT UPPER LIMB / Unknown Venipuncture / Unknown 05/28/2024 8:45 PM CDT 05/28/2024 8:50 PM CDT us Obinna Brown MD LAB - BLOOD ORDERABLES Final Result [facility] [address] [facility] (1st floor, no room number) [place] [address] * (ABNORMAL) CBC with platelets (05/28/2024 8:45 PM CDT) WBC Count 10.3 4.0 - 11.0 10e3/uL 05/28/2024 8:52 PM CDT [facility] RBC Count 4.09 3.80 - 5.20 10e6/uL 05/28/2024 8:52 PM CDT [facility] Hemoglobin 11.5(L) 11.7 - 15.7 g/dL 05/28/2024 8:52 PM CDT [facility] Hematocrit 34.2(L) 35.0 - 47.0 % 05/28/2024 8:52 PM CDT [facility] MCV 84 78 - 100 fL 05/28/2024 8:52 PM CDT [facility] MCH 28.1 26.5 - 33.0 pg 05/28/2024 8:52 PM CDT [facility] MCHC 33.6 31.5 - 36.5 g/dL 05/28/2024 8:52 PM CDT [facility] RDW 13.2 10.0 - 15.0 % 05/28/2024 8:52 PM CDT [facility] Platelet Count 201 150 - 450 10e3/uL 05/28/2024 8:52 PM CDT [facility] Blood STRUCTURE OF RIGHT UPPER LIMB / Unknown Venipuncture / Unknown 05/28/2024 8:45 PM CDT 05/28/2024 8:50 PM CDT us Obinna Brown MD LAB - BLOOD ORDERABLES Final Result [facility] Lab [address] Lab (1st floor, no room number) [place] [address], [facility] documented in this encounter Visit Diagnoses Diagnosis Encounter for triage in patient documented in this encounter Administered Medications Inactive Administered Medications - up to 3 most recent administrations Medication Order MAR Action Action Date Dose Rate Site sodium chloride (PF) 0.9% PF flush 3 mL 3 mL, Intracatheter, EVERY 8 HOURS, First dose on Sun05/28/24 at 2100, to lock peripheral IV dormant line, OB Preadmission documented in this encounter Active and Recently Administered Medications Times are shown in CDT. Scheduled Medication Order 05/26/2024 05/27/2024 05/28/2024 sodium chloride (PF) 0.9% PF flush 3 mL 3 mL, Intracatheter, EVERY 8 HOURS, First dose on Sun05/28/24 at 2100, to lock peripheral IV dormant line, OB Preadmission 2099 (Canceled Entry - Provider: Orders Generic Provider - Comment: Automatically canceled at discontinue of medication order) documented in this encounter Additional Health Concerns Active Problems Noted Date Diagnosed Date Patient expresses financial resource strain 03/23 documented as of this encounter Care Teams Strap Stitcher Relationship Specialty Start Date End Date No Ref-Primary, Physician PCP - General 02/28/24 07/20/24 No Ref-Primary, Physician 02/28/24 Farrukh Gaspar MD [address], [address] [place] [address] Physician human resource officer 02/28/[address] [facility] [place] [address] Television Installer Helper Dietitian 03/06/24 Tara Martin, [facility] Lead Paginator 04/11/24 Farrukh Gaspar MD [address], [address] [address] Assigned OBGYN Provider 04/13/24 Padmini Calderon DO [address] [address] Physician human resource officer 04/22/24 documented as of this encounter
--- OUTSIDE RECORDS SUMMARY | 2024-08-29 10:56 | XMS_ITS | Encounter Summary ---
Author Organization [facility] Address [address] [place] [address] Care Team Providers Care Instrument Adjuster Name Role Phone No Ref-Primary, Physician Primary Care Provider No Ref-Primary, Physician Unavailable [phone] Farrukh Gaspar MD Unavailable [phone] Unavailable Unavailab Tara Barbosa Unavailable Farrukh Gaspar MD Unavailable Padmini Calderon DO Unavailable Miller Garcia MD Unavailable [phone] Padmini Calderon DO Unavailable Lakesha Padron APRN [facility] Primary Care Provider Encounter Details Date Type Department Care Team (Late st Contact Info) Description 06/09/2024 MyC Medical Advice [facility] [address] [place] [id number] Teagan Mark, DOUGLAS [address] [place] [address] Social History Tobacco Use Types Packs/Day Years [...] on file 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 Author Create an action plan to increase financial stability Care Plan Patient expresses financial resource strain No Patt Gautam, [facility] Note: Barriers: Lack of housing Strengths: Engaged in care coordination Patient expressed understanding of goal: YES Action steps to achieve this goal: 1. I will review the resources provided by home health care provider 2. I will I will contact my care team with questions, concerns, or support needs. 3. I will use the clinic as a resource, and I understand I can contact my clinic with / after hours services available. Junior Manufacturing Engineer will remain available as needed. documented as of this encounter Visit Diagnoses Not on filedocumented in this encounter Additional Health Concerns Active Problems Noted Date Diagnosed Date Patient expresses financial resource strain 03/23 documented as of this encounter Care Teams Instrument Adjuster Relationship Specialty Start Date End Date No Ref-Primary, Physician PCP - General 02/28/24 07/20/24 Lakesha Padron APRN CNM [address] [place] [address] PCP - General representative personal service 07/21/24 No Ref-Primary, Physician 02/28/24 Farrukh Gaspar MD [address] [address] Physician representative personal service 02/28/[address] [facility] [place] [address] Credit Reporting Clerk Dietitian 03/06/24 Tara Martin, [facility] Lead Junior Manufacturing Engineer 04/11/24 Farrukh Gaspar MD [address], [address] [address] Assigned OBGYN Provider 04/13/24 Padmini Calderon DO [address] [address] Physician representative personal service 04/22/24 Miller Garcia MD [address] [address] Assigned OBGYN Provider 06/13/24 Padmini Calderon DO [address] [address] Assigned OBGYN Provider 07/14/24 documented as of this encounter
--- OUTSIDE RECORDS SUMMARY | 2024-08-29 10:56 | XMS_ITS | Encounter Summary ---
Author Organization [facility] Address [address] [place] [address] Care Team Providers Care Clinical Program Coordinator Name Role Phone No Ref-Primary, Physician Primary Care Provider No Ref-Primary, Physician Unavailable [phone] Farrukh Gaspar MD Unavailable [phone] Unavailable Unavailab Wilma Cortés CHW Unavailable [phone] Tara Martin INTERNAL AUDITOR Unavailable Patt Gautam INTERNAL AUDITOR Unavailable [phone] Farrukh Gaspar MD Unavailable [phone] Padmini Calderon DO Unavailable [phone] Simran Martin CHW Unavailable Unavailable Miller Garcia MD Unavailable Padmini Calderon DO Unavailable [phone] Lakesha Padron APRN Primary Care Provider [phone] Encounter Details Date Type Department Care Team (Late st Contact Info) Description 03/21/2024 [facility] [address] [place] [address] Roseanne Luna Social History Tobacco Use Types Packs/Day Years Used Date Smoking Tobacco: Never Smokeless Tobacco: Never Alcohol Use Standard Drinks/Week Comments Never 0 (1 standard drink = 0.6 oz pur e alcohol) Adolescent Education Answer Date Record ed Getting School Help Needed Not on file 02/27 Comments Yes Sex and Gender Information Value Date Recorded Sex Assigned at Not on file 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 Gender Identity Not on file Sexual Orientation Not on file documented as of this encounter Plan of Treatment Not on file documented as of this encounter Visit Diagnoses Not on filedocumented in this encounter Care Teams Clinical Program Coordinator Relationship Specialty Start Date End Date No Ref-Primary, Physician PCP - General 02/28/24 07/20/24 Lakesha Padron APRN CNM [address] [place] [address] PCP - General inker 07/21/24 No Ref-Primary, Physician 02/28/24 Farrukh Gaspar MD [address] [address] Physician inker 02/28/[address] [facility] [place] [address] Director Consumer Dietitian 03/06/24 Wilma Yu [facility] Community Health Worker 04/11/2405/08 Tara Martin, [facility] Lead Bookkeeper Receptionist 04/11/24 Patt Gautam, [facility] Lead Bookkeeper Receptionist 04/11/24 4 Farrukh Gaspar MD [address] [address] Assigned OBGYN Provider 04/13/24 Padmini Calderon DO [address] [address] Physician inker 04/22/24 Simran Martin, CHW Community Health Worker 05/08/2405/13 Miller Garcia MD [address] [address] Assigned OBGYN Provider 06/13/24 Padmini Calderon DO [address] [address] Assigned OBGYN Provider 07/14/24 documented as of this encounter
--- OUTSIDE RECORDS SUMMARY | 2024-08-29 10:56 | XMS_ITS | Encounter Summary ---
Author Organization [facility] Address [address] [place] [address] Care Team Providers Care Executive Secretary Name Role Phone No Ref-Primary, Physician Primary Care Provider No Ref-Primary, Physician Unavailable [phone] Farrukh Gaspar MD Unavailable [phone] Unavailable Unavailab Wilma Cortés CHW Unavailable [phone] Tara Martin ASSOCIATE DEAN OF STUDENTS Unavailable Patt Gautam ASSOCIATE DEAN OF STUDENTS Unavailable [phone] Farrukh Gaspar MD Unavailable Padmini Calderon DO Unavailable [phone] Simran Martin CHW Unavailable Unavailable Miller Garcia MD Unavailable [phone] Padmini Calderon DO Unavailable Lakesha Padron APRN Primary Care Provider [phone] Reason for Visit * Reason Onset Date Comments Care 04/11/2024 Encounter Details Date Type Department Care Team (Late st Contact Info) Description 04/11/2024 MyC Medical Advice [facility] [address] [place] [address] Farrukh Gaspar MD [address], [address] [place] [address] Care Social History Tobacco Use Types Packs/Day [...] on file 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 We can certainly make sure that someone provides a thorough explanation of the results. Farrukh Gaspar MD * Telephone Encounter - Jade Mayer RN - 04/11/2024 9:15 AM CD[facility]. Will that be okay? KATHI Hansen documented in this encounter Plan of Treatment Not on file documented as of this encounter Visit Diagnoses Not on filedocumented in this encounter Care Teams Executive Secretary Relationship Specialty Start Date End Date No Ref-Primary, Physician PCP - General 02/28/24 07/20/24 Lakesha Padron APRN CNM [address] [place] [address] PCP - General clinical unit coordinator 07/21/24 No Ref-Primary, Physician 02/28/24 Farrukh Gaspar MD [address], [address] [address] Physician clinical unit coordinator 02/28/[address] [facility] [place] [address] Fiscal Manager Dietitian 03/06/24 Wilma Yu, [facility] Community Health Worker 04/11/2405/08 Tara Martin, [facility] Lead Division Operations Specialist 04/11/24 Patt Gautam, [facility] Lead Division Operations Specialist 04/11/24 4 Farrukh Gaspar MD [address], [address] [address] Assigned OBGYN Provider 04/13/24 Padmini Calderon DO [address] [address] Physician clinical unit coordinator 04/22/24 Simran Martin [facility] Community Health Worker 05/08/2405/13 Miller Garcia MD [address] [address] Assigned OBGYN Provider 06/13/24 Padmini Calderon DO [address] [address] Assigned OBGYN Provider 07/14/24 documented as of this encounter
--- OUTSIDE RECORDS SUMMARY | 2024-08-29 10:56 | XMS_ITS | Encounter Summary ---
Author Organization [facility] Address [address] [place] [address] Care Team Providers Care Enologist Name Role Phone No Ref-Primary, Physician Primary Care Provider No Ref-Primary, Physician Unavailable Farrukh Gaspar MD Unavailable Kim Doll RD Unavailable Unavailab Tara Barbosa Unavailable Farrukh Gaspar MD Unavailable Padmini Calderon DO Unavailable Reason for Visit * Reason Comments RECHECK Encounter Details Date Type Department Care Team (Late st Contact Info) Description 05/28/2024 2:30 PM CDT Virtual Visit [address] [place] [phone] Teagan Mark NP [address] [address] Insulin controlled gestational diabetes mellitus (GDM) in [...] on file 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 Insulin controlled gestational diabetes mellitus (GDM) in second trimester HPI Rola Mckeon is a very pleasant 33 year old old female who presents for GESTATIONAL Diabetes Mellitus. She is currently 25 w . Due date is 09/10/24 Diagnosed with GDM based on anOGTT. She hashad GDM in prior pregnancies. Current carbohydrate intake:consistent with recommendations of 30g-60g-60g. I have reviewed her blood glucose logs and note that the: Fasting readings are:above range on current regimen Postprandial readings are:above range on current regimen Current Levemir dose: 40 Current Prandial insulin: 6/0/0 10 units with extra CHO Blood glucose logs/meter brought in and data reviewed and incorporated into decision-making. Planned delivery at: [facility]: [facility] Therapy/Interventions in the past: She has been seen by the Methods Specialist- and has received instruction on carbohydrate counting and consistency. Records from referring provider and other sources have also been reviewed and incorporated into decision-making. TODAY: We are seeing Rola in follow-up for GDM. We are joined by MICHELLE Vegas. Pt provides BG today and will need some insulin with her dinners. Other numbers look pretty good. Baby is currently in the 81st percentile in height. Baby is also moving appropriately and she is having no swelling at present. Blood Glucose Numbers: 05/21 Fasting - 94 1 hour after: B - 110 L - 127 D - 151 8/1 Fasting - 93 1 hour after: B - 135 L - 132 D - 139 8/2 Fasting - 96 1 hour after: B - 81 L - 105 D - 139 8/3 Fasting - 94 1 hour after: B - 100 L - 120 D - 134 8/4 Fasting - 97 1 hour after: B - 126 L - 128 D - 142 8/5 Fasting - 88 1 hour after: B - 102 L - 148 D - 102 8/6 Fasting - 84 1 hour after : B - 124 L- 114 D - 142 8/7 Fasting - 93 B - 124 Past Medical History Patient Active Problem List [...] DIABETES- Adjust dose as follows: -Levemir insulin 40 units. Increase by 2 units every 2 [...] hour after each meal. Contact this clinic [phone] if blood glucose is not within the above- mentioned goals. We discussed the importance of excellent glycemic control during to limit complications such as macrosomia, shoulder dystocia, hypoglycemia and hyperbilirubinemia. I have discussed the patient's increased risk of recurrent GDM and/or development of type 2 diabetes later inlife. Follow-up in 2 weeks. Teagan Mark NP 05/28/2024 Lab Results No results found for: HGBA1C, CREATININE, MICROALBUR No results found for: CHOL, HDL, TRIG, CHOLHDL @LASTLFT@ Current Medications Virtual Visit Details Type of service: Video Visit Video Start Time: 1430 Video End Time: 1450 Originating Location (pt. Location): Home Distant Location (provider location): On-site Platform used for Video Visit: Flor documented in this encounter Plan of Treatment Not on file documented as of this encounter Goals Goal Patient Goal Type Associated Problems Recent Progress Patient-Stated? Author Create an action plan to increase financial stability Care Plan Patient expresses financial resource strain No Patt Gautam, [facility] Note: Barriers: Lack of housing Strengths: Engaged in care coordination Patient expressed understanding of goal: YES Action steps to achieve this goal: 1. I will review the resources provided by healthcare prof 2. I will I will contact my care team with questions, concerns, or support needs. 3. I will use the clinic as a resource, and I understand I can contact my clinic with 24/7 after hours services available. Bus Cleaner will remain available as needed. documented as of this encounter Visit Diagnoses Diagnosis Insulin controlled gestational diabetes mellitus (GDM) in second trimester- Primary documented in this encounter Additional Health Concerns Active Problems Noted Date Diagnosed Date Patient expresses financial resource strain 03/23 documented as of this encounter Care Teams Enologist Relationship Specialty Start Date End Date No Ref-Primary, Physician PCP - General 02/28/24 07/20/24 No Ref-Primary, Physician 02/28/24 Farrukh Gaspar MD [address], [address] [address] Physician loading unit operator powder charging 02/28/[address] [facility] [place] [address] Methods Specialist Dietitian 03/06/24 Tara Martin, [facility] Lead Bus Cleaner 04/11/24 Farrukh Gaspar MD [address], [address] [address] Assigned OBGYN Provider 04/13/24 Padmini Calderon DO [address] [address] Physician loading unit operator powder charging 04/22/24 documented as of this encounter
--- OUTSIDE RECORDS SUMMARY | 2024-08-29 10:56 | XMS_ITS | Encounter Summary ---
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 Author Create an action plan to increase financial stability Care Plan Patient expresses financial resource strain No Patt Gautam, [facility] Note: Barriers: Lack of housing Strengths: Engaged in care coordination Patient expressed understanding of goal: YES Action steps to achieve this goal: 1. I will review the resources provided by patient care coordinator 2. I will I will contact my care team with questions, concerns, or support needs. 3. I will use the clinic as a resource, and I understand I can contact my clinic with 24/7 after hours services available. Baker Paint will remain available as needed. documented as of this encounter Visit Diagnoses Not on filedocumented in this encounter Additional Health Concerns Active Problems Noted Date Diagnosed Date Patient expresses financial resource strain 03/23 documented as of this encounter Care Teams Hardness Inspector Relationship Specialty Start Date End Date No Ref-Primary, Physician PCP - General 02/28/24 07/20/24 No Ref-Primary, Physician 02/28/24 Farrukh Gaspar MD [address] [address] Physician midwife 02/28/[address] [place] [address] Education Instructor Dietitian 03/06/24 Tara Martin [facility] Lead Baker Paint 04/11/24 Farrukh Gaspar MD [address], [address] [address] Assigned OBGYN Provider 04/13/24 Padmini Calderon DO [address] [address] Physician midwife 04/22/24 documented as of this encounter
--- OUTSIDE RECORDS SUMMARY | 2024-08-29 10:56 | XMS_ITS | Encounter Summary ---
Author Organization [facility] Address [address] [place] [address]. [place] [address] Care Team Providers Care Grease Packer Name Role Phone No Ref-Primary, Physician Primary Care Provider No Ref-Primary, Physician Unavailable [phone] Farrukh Gaspar MD Unavailable [phone] Unavailable Unavailab Wilma Cortés CHW Unavailable [phone] Tara Martin SENIOR DATA SCIENTIST Unavailable Patt Gautam SENIOR DATA SCIENTIST Unavailable Farrukh Gaspar MD Unavailable [phone] Padmini Calderon DO Unavailable [phone] Simran Martin CHW Unavailable Unavailable Miller Garcia MD Unavailable [phone] Padmini Calderon DO Unavailable [phone] Lakesha Padron APRN Primary Care Provider [phone] Reason for Visit * Reason Onset Date Comments Appointment 03/14/2024 New GDM with End ocrinology Encounter Details Date Type Department Care Team (Late st Contact Info) Description 03/14/[address] [place] [address] Kim Doll, RD [address] [facility] [place] [address] Appointment (New GDM with Endocrinology ) Social History Tobacco Use Types Packs/Day Years [...] on file 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 Please use visit type NGDM, appointments can be in person or video, video appt can be scheduled onto her NGDM/RGDM spot. * Telephone Encounter - Melissa Mcgill RN - 03/20/2024 11:17 AM CDT Gestational Due in August needing to be seen to start insulin . No providers have openings and oncall this week cannot add on anymore. Can you add her on early next week when wash crew person .? Melissa Mcgill RN on 03/20/2024 at 11:18 AM * Telephone Encounter - Melissa Mcgill RN - 03/19/2024 3:20 PM CDT Any chance you can add this NEW gestational on this week. She's due in August. She did see Diabetes Education Melissa Mcgill RN on 03/19/2024 at 3:21 PM * Telephone Encounter - Leah Izaguirre 03/19/2024 2:22 PM CDT Pt called back to schedule. The first available appointment was in July. Offset Duplicating Machine Operator did check all locations, virtual and in person. Pt opted to not schedule since she is due in August. Please reviewand call to discuss. * Telephone Encounter - Radha Boss - 03/19/2024 9:30 AM CDT 03.19- lmtcb x2- to schedule New GDM with Endocrinology. Use visit type New GDM (3244) * Telephone Encounter - Ronal Boss - 03/14/2024 12:04 PM CDT 03.14- Lmtcb x1 to schedule New GDM with Endocrinology. Use visit type New GDM (3244) * Telephone Encounter - Ronal Boss - 03/14/2024 12:03 PM CDT ----- Message from Kim Doll RD sent at 03/13/2024 11:37 AM CDT ----- Regarding: Needs to be scheduled in clinic Patient starting insulin. Please assist in scheduling in diabetes and clinic. Thank you! Maria R Doll, MPH, RD, CDCES, LD 03/13/2024 documented in this encounter Plan of Treatment Not on file documented as of this encounter Visit Diagnoses Not on filedocumented in this encounter Care Teams Grease Packer Relationship Specialty Start Date End Date No Ref-Primary, Physician PCP - General 02/28/24 07/20/24 Lakesha Padron APRN [address] [address] PCP - General party supply specialist 07/21/24 No Ref-Primary, Physician 02/28/24 Farrukh Gaspar MD [address], [address] [address] Physician party supply specialist 02/28/[address] [facility] [place] [address] Breaking Machine Operator Dietitian 03/06/24 Wilma Yu W Community Health Worker 04/11/2405/08 Tara Martin, [facility] Lead Rn Maternal Child 04/11/24 Patt Gautam, [facility] Lead Rn Maternal Child 04/11/24 4 Farrukh Gaspar MD [address], [address] [address] Assigned OBGYN Provider 04/13/24 Padmini Calderon DO [address] [address] Physician party supply specialist 04/22/24 Simran Martin Jose Antonio Community Health Worker 05/08/2405/13 Miller Garcia MD [address] [address] Assigned OBGYN Provider 06/13/24 Padmini Calderon DO [address] [place] [address] Assigned OBGYN Provider 07/14/24 documented as of this encounter
--- OUTSIDE RECORDS SUMMARY | 2024-08-29 10:56 | XMS_ITS | Encounter Summary ---
Author Organization [facility] Address [address] [place] [address] Care Team Providers Care Surplus Property Disposal Agent Name Role Phone No Ref-Primary, Physician Primary Care Provider No Ref-Primary, Physician Unavailable [phone] Farrukh Gaspar MD Unavailable [phone] Unavailable Unavailab Wilma Cortés CHW Unavailable [phone] Tara Martin FINAL ASSEMBLY WORKER Unavailable Patt Gautam FINAL ASSEMBLY WORKER Unavailable [phone] Farrukh Gaspar MD Unavailable [phone] Padmini Calderon DO Unavailable [phone] Simran Martin CHW Unavailable Unavailable Miller Garcia MD Unavailable [phone] Padmini Calderon DO Unavailable [phone] Lakesha Padron APRN Primary Care Provider [phone] Encounter Details Date Type Department Care Team (Late st Contact Info) Description 04/07/2024 [facility] [address] [facility] [address] [place] [address] Teagan Mark, DOUGLAS [address] [facility] [address] [place] [address] Social History Tobacco Use Types Packs/Day Years [...] on file Legal 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 Gender Identity Not on file Sexual Orientation Not on file documented as of this encounter Plan of Treatment Not on file documented as of this encounter Visit Diagnoses Not on filedocumented in this encounter Care Teams Surplus Property Disposal Agent Relationship Specialty Start Date End Date No Ref-Primary, Physician PCP - General 02/28/24 07/20/24 Lakesha Padron APRN CNM [address] [place] [address] PCP - General application internship 07/21/24 No Ref-Primary, Physician 02/28/24 Farrukh Gaspar MD [address] [address] Physician application internship 02/28/[address] [place] [address] Real Estate Listing Consultant Dietitian 03/06/24 Wilma Yu, W Community Health Worker 04/11/2405/08 Tara Martin, [facility] Lead Nutritionist 04/11/24 aPtt Gautam, [facility] Lead Nutritionist 04/11/24 4 Farrukh Gaspar MD [address], [address] [address] Assigned OBGYN Provider 04/13/24 Padmini Calderon DO [address] [address] Physician application internship 04/22/24 Simran Martin, CHW Community Health Worker 05/08/2405/13 Miller Garcia MD [address] [address] Assigned OBGYN Provider 06/13/24 Padmini Calderon DO [address] [address] Assigned OBGYN Provider 07/14/24 documented as of this encounter
--- OUTSIDE RECORDS SUMMARY | 2024-08-29 10:56 | XMS_ITS | Encounter Summary ---
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 Author Create an action plan to increase financial stability Care Plan Patient expresses financial resource strain No Patt Gautam, [facility] Note: Barriers: Lack of housing Strengths: Engaged in care coordination Patient expressed understanding of goal: YES Action steps to achieve this goal: 1. I will review the resources provided by rn coronary care unit 2. I will I will contact my care team with questions, concerns, or support needs. 3. I will use the clinic as a resource, and I understand I can contact my clinic with 24/7 after hours services available. Imaging Tech will remain available as needed. documented as of this encounter Visit Diagnoses Not on filedocumented in this encounter Additional Health Concerns Active Problems Noted Date Diagnosed Date Patient expresses financial resource strain 03/23 documented as of this encounter Care Teams Apprentice Lineman Third Step Relationship Specialty Start Date End Date No Ref-Primary, Physician PCP - General 02/28/24 07/20/24 No Ref-Primary, Physician 02/28/24 Farrukh Gaspar MD [address] [address] Physician metal bumper 02/28/[address] [place] [address] Data Integration Developer Dietitian 03/06/24 Tara Martin [facility] Lead Imaging Tech 04/11/24 Farrukh Gaspar MD [address], [address] [address] Assigned OBGYN Provider 04/13/24 Padmini Calderon DO [address] [address] Physician metal bumper 04/22/24 documented as of this encounter
--- NOTE | 2024-08-29 12:19 | W.PM.LAC.MC ---
Consult Note - Mom Date of Visit Date of visit: 08/29/24 Reason for consultation: Assistance Needed, Breast/Nipple Issue and Low Milk Supply Visit Code: Visit Patient's Information Phone number: [phone] : 4 Para: 3 Allergies [place] Pollen Adverse Reaction (Intermediate, Uncoded 08/27/23 17:58) Wheezing Mother's medical history: Post hemorrhage and Other (uterine rupture at time of delivery) Mother's Medical History: Medical History (Updated 08/27/23 @ 18:58 by Sarahy Altamirano COMBAT ENGINEER) Otitis media ?H66.90 - Otitis media, unspecified, unspecified ear (ICD-10) Encounter for supervision of high risk in third trimester, antepartum ?O09.93 - Supervision of high risk , unspecified, third trimester (ICD-10) Superficial thrombophlebitis ?I80.9 - Phlebitis and thrombophlebitis of unspecified site (ICD-10) Asthma ?J45.909 - Unspecified asthma, uncomplicated (ICD-10) Gestational diabetes ?O24.419 - Gestational diabetes mellitus in , unspecified control (ICD-10) Gestational hypertension ?O13.9 - Gestational [-induced] hypertension without significant proteinuria, unspecified trimester (ICD-10) Delivery Information Delivery type: Primary C/S; Labored Gestational Age: 37 weeks Gestational Weight For Age: AGA Weight: 3.28 kg Baby's Information Baby's Age at Visit: 9 days Baby's Provider or Clinic: [facility] for ongoing primary care Jaundice: Yes (bilirubin level the last 2 days. 08/27 18.6, 08/28 17) Past Experience Past Experience: Yes (1st: pumped/EBM x 2 months, then breast x3-4months; 2nd: Breast x6 months) Current Frequency of Day Feedings: every 3-3.5 hours Frequency of Night Feedings: every 3-3.5 hours Both Breasts: Yes (sometimes) Suck: pretty good if she'll latch Length of Time: 5-10 minutes Goals: at least 6 months Pumping Pumping: Yes (Using a Zomee; also has a Spectra) Quantity Pumped: 1/2-1oz total Supplementing EBM Supplement: Yes Formula Supplement: Yes (baby taking 2-3.5 oz/feeding) Baby Elimination Number of Wet Diapers a Day: ea feeding Number of BM a Day: 3-4 a day Breast/Nipple Condition Breast Information: Breasts are symmetrical with tuberous shape, intramammary distance is greater than 1.5 inches. Rola reports minimal breast changes with this , less than other pregnancies. Additionally the slight increase in breast size she had during has disappeared and her breasts are smaller. She also notes they are smaller than with her first 2 children. No erythema. Nipples are supple, everted prior to feeding. Breast Shape: Tubular Engorgement: No Maternal Nipple Condition - Left: Common Nipple Maternal Nipple Condition - Right: Common Nipple Sore Nipples: No Baby Assessment Skin: Yellow (to mid abdomen) Tongue/frenulum: Normal/elastic Palate: Average Lips: Relaxed and Symmetrical Jaw Alignment: Symmetrical Mucosa: [place], moist Onsite Observation Pre-Feed weight: 3.038 kg Post-Feed weight: 3.052 kg Milk Transferred (mL): 14 (nursed 7-8 min on each breast, then off and fussy) Position: Cross cradle Attachment/latch-on achieved: With difficulty Suck pattern: Extended suck phase Swallow: Occasionally Behavior following feed: Alert, fussy Pre-Nursing Left Nipple: Within Normal Limits Pre-Nursing Right Nipple: Within Normal Limits Post-Nursing Left Nipple: Within Normal Limits Post-Nursing Right Nipple: Within Normal Limits Assessments/Interventions Education provided: Early feeding cues to maximize timing of latching, Need for frequent stimulation/milk removal, Hand expression and Pumping for milk management Handouts Provided: Spectra cycle pumping given and discussed Feeding Plan: Printed feeding plan given to Rola Discussed importance of frequent nipple/breast stimulation and emptying to maximize ability to make milk, every 2-3 hours. Put baby to the breast as much as able, even if only 5 minutes on each breast, pump after feedings as often as possible to stimulate supply, hand on pumping/breast compression during feeding may also be helpful. Recognize both that she successfully breastfed her other 2 children without a lot of supplement and she did not have significant breast changes with this and she had a >1000ml blood loss which may complicate her ability to make milk. Discussed role of galactogogues-may or may not help, but Rola could try if she'd like. Follow-Up Suggested follow up: Appointment as needed Recommend baby be seen by provider for:: Keep appt already sched in 5 days for weight f/u Time Spent Time spent with patient (min): 90 (reviewing outside records, and face to face time with mom and baby) Meds Home Medications and Allergies Home Medications ?Medication ?Instructions ?Recorded ?Confirmed ?Type PNV no.151-iron 27 mg-folic 800 1 cap PO DAILY 05/01/22 08/29/24 History mcg-omega3 260 ve-xrs-rbi-fish capsule ( Multi-DHA (with vitamin K)) ferrous sulfate 325 mg (65 mg mg PO 08/29/24 History iron) tablet (FeroSul) labetalol 300 mg tablet 300 mg PO Q12H 08/29/24 08/29/24 History Allergies Allergy/AdvReac Type Severity Reaction Status Date / Time [place] Pollen AdvReac Intermediate Wheezing Uncoded 08/27/23 17:58
== END 2024-08-29 10:47 | disposition home or self-care (01) ==
LOC: OB LAC 10:49
PROVIDERS: Visit Provider Obstetrics & Gynecology
DX: Z39.1 Encounter for care and examination of lactating mother (principal)
CPT/HCPCS: G0463